=== PATIENT | female | born 1950 | race Caucasian/White ===

== ENCOUNTER → 2017-10-10 | Outpatient (CLI) | payer OTHER ==
[2017-10-10 17:32] LABS: BASOPHILS # (AUTO) 0.1 (0.0-0.1); BASOPHILS % 0.6 % (0.0-1.0); EOSINOPHILS # (AUTO) 0.5 (0.0-0.4); EOSINOPHILS % 6.1 % (0.0-6.0); HEMATOCRIT 35.2 % (34.2-44.1); HEMOGLOBIN 9.7 g/dL (12.0-16.0); LYMPHOCYTES # (AUTO) 1.1 (1.0-3.2); LYMPHOCYTES % 13.1 % (18.0-39.1); MEAN CORPUSCULAR HEMOGLOBIN 21.1 pg (28-32); MEAN CORPUSCULAR HGB CONC 27.6 g/dL (31-35); MEAN CORPUSCULAR VOLUME 76.7 fL (81-99); MONOCYTES # (AUTO) 0.9 (0.2-0.8); MONOCYTES % 10.8 % (4.4-11.3); NEUTROPHILS # (AUTO) 5.9 (2.1-6.9); NEUTROPHILS % 67.7 % (38.7-80.0); PLATELET COUNT 74 x10e3/uL (140-360); RED BLOOD COUNT 4.59 x10e6/uL (3.6-5.1); RED CELL DISTRIBUTION WIDTH 21.9 % (11.7-14.4)
[2017-10-10 17:33] LABS: ALANINE AMINOTRANSFERASE 35 IU/L (0-55); ALBUMIN 3.1 g/dL (3.5-5.0); ALBUMIN/GLOBULIN RATIO 0.7 (0.8-2.0); ALKALINE PHOSPHATASE 89 IU/L (40-150); BLOOD UREA NITROGEN 20 mg/dL (7-26); BUN/CREATININE RATIO 28 (6-25); CALCIUM 9.9 mg/dL (8.4-10.2); CARBON DIOXIDE 31 mmol/L (22-29); CHLORIDE 98 mmol/L (98-107); CREATININE, SERUM 0.72 mg/dL (0.57-1.11); EST GLOMERULAR FILTRATION RATE > 60 ML/MIN (60-); GLUCOSE 128 mg/dL (74-118); SODIUM 141 mmol/L (136-145)
[2017-10-10 17:45] LABS: HYPOCHROMASIA SLIGHT; PLATELET ESTIMATE SLIGHTLY DECREASED; RBC MORPHOLOGY COMMENT NORMAL
[2017-10-10 17:46] LABS: PLATELET MORPHOLOGY COMMENT FEW LARGE
== END ==
LOC: NPA 11:00
PROVIDERS: ATTEND Internal Medicine
DX: Z02.89 Encounter for other administrative examinations (principal)
CPT/HCPCS: 36415; 80053; 85025

== ENCOUNTER → 2017-10-25 | Outpatient (CLI) | payer OTHER ==
[2017-10-25 16:59] LABS: ANION GAP 17.3 mmol/L (8-16); CALCIUM 10.8 mg/dL (8.4-10.2); CREATININE, SERUM 1.67 mg/dL (0.57-1.11); POTASSIUM 4.3 mmol/L (3.5-5.1)
[2017-10-25 17:02] LABS: BASOPHILS # (AUTO) 0.1 (0.0-0.1); BASOPHILS % 0.9 % (0.0-1.0); EOSINOPHILS # (AUTO) 0.5 (0.0-0.4); EOSINOPHILS % 6.7 % (0.0-6.0); HEMATOCRIT 34.3 % (34.2-44.1); HEMOGLOBIN 10.1 g/dL (12.0-16.0); LYMPHOCYTES # (AUTO) 1.5 (1.0-3.2); LYMPHOCYTES % 19.1 % (18.0-39.1); MEAN CORPUSCULAR HGB CONC 29.4 g/dL (31-35); MEAN CORPUSCULAR VOLUME 78.1 fL (81-99); MONOCYTES % 12.7 % (4.4-11.3); NEUTROPHILS # (AUTO) 4.7 (2.1-6.9); NEUTROPHILS % 60.1 % (38.7-80.0); PLATELET COUNT 134 x10e3/uL (140-360); RED BLOOD COUNT 4.39 x10e6/uL (3.6-5.1); RED CELL DISTRIBUTION WIDTH 24.9 % (11.7-14.4)
== END ==
LOC: NPA 14:56
PROVIDERS: ATTEND Internal Medicine
DX: Z02.89 Encounter for other administrative examinations (principal)
CPT/HCPCS: 36415; 80048; 85025

== ENCOUNTER 2018-01-06 17:05 | Inpatient (IN) | payer MEDICARE, OTHER ==
[~2018-01-06] VITALS: Ht 167.6 cm; Wt 122.9 kg
[2018-01-06 17:44] LABS: BASOPHILS # (AUTO) 0.1 (0.0-0.1); BASOPHILS % 0.3 % (0.0-1.0); EOSINOPHILS # (AUTO) 0.2 (0.0-0.4); EOSINOPHILS % 0.8 % (0.0-6.0); HEMATOCRIT 35.5 % (34.2-44.1); HEMOGLOBIN 11.2 g/dL (12.0-16.0); LYMPHOCYTES # (AUTO) 1.3 (1.0-3.2); LYMPHOCYTES % 5.4 % (18.0-39.1); MEAN CORPUSCULAR HEMOGLOBIN 27.5 pg (28-32); MEAN CORPUSCULAR HGB CONC 31.5 g/dL (31-35); MONOCYTES # (AUTO) 1.1 (0.2-0.8); MONOCYTES % 4.5 % (4.4-11.3); NEUTROPHILS % 88.5 % (38.7-80.0); RED BLOOD COUNT 4.08 x10e6/uL (3.6-5.1)
[2018-01-06 17:48] LABS: PLATELET COUNT 97 x10e3/uL (140-360)
[2018-01-06 17:52] LABS: INR 1.22; PROTHROMBIN TIME 14.5 seconds (11.9-14.5)
[2018-01-06 17:53] LABS: PARTIAL THROMBOPLASTIN TIME 31.4 seconds (23.8-35.5)
[2018-01-06 17:56] LABS: BILIRUBIN,URINE NEGATIVE (NEGATIVE); CLARITY,URINE SL CLOUDY (CLEAR); COLOR,URINE YELLOW (YELLOW); KETONES,URINE NEGATIVE (NEGATIVE); LEUKOCYTE ESTERASE ,URINE 1+ (NEGATIVE); NITRITE,URINE POSITIVE (NEGATIVE); PROTEIN,URINE DIPSTICK NEGATIVE (NEGATIVE); URINE UROBILINOGEN 0.2 mg/dL (0.2 - 1)
[2018-01-06 18:00] LABS: ALANINE AMINOTRANSFERASE 12 IU/L (0-55); ALBUMIN 2.6 g/dL (3.5-5.0); ALBUMIN/GLOBULIN RATIO 0.8 (0.8-2.0); ALKALINE PHOSPHATASE 103 IU/L (40-150); ANION GAP 15.5 mmol/L (8-16); BLOOD UREA NITROGEN 16 mg/dL (7-26); BUN/CREATININE RATIO 18 (6-25); CALCIUM 8.4 mg/dL (8.4-10.2); CARBON DIOXIDE 26 mmol/L (22-29); CHLORIDE 100 mmol/L (98-107); CREATINE KINASE 17 IU/L (29-168); CREATININE, SERUM 0.88 mg/dL (0.57-1.11); EST GLOMERULAR FILTRATION RATE > 60 ML/MIN (60-); GLUCOSE 135 mg/dL (74-118); POTASSIUM 3.5 mmol/L (3.5-5.1); SODIUM 138 mmol/L (136-145)
[2018-01-06 18:09] LABS: AMORPHOUS SEDIMENT,URINE MANY (FEW); BACTERIA,URINE MANY /HPF; EPITHELIAL CELLS,URINE MODERATE /LPF; WBC,URINE (MAN) 0-5 /HPF (0-5)
[2018-01-06] MEDS ORDERED: PIPER-TAZ 3.375 GM 50 ML IV STA (18:33)
[2018-01-06] MEDS ORDERED: VANCOMYCIN 1GM/NS 250 ML 250 ML IV STA (18:33)
--- NOTE | 2018-01-06 18:40 | Diagnostic Imaging Report ---
PROCEDURE: A single AP view of the chest. COMPARISON: None. INDICATIONS: SOB FINDINGS: Lines/tubes: None. Lungs: The lungs are well inflated and grossly clear. There is no evidence of pneumonia or pulmonary edema. Pleura: There is no pleural effusion or pneumothorax. Heart and mediastinum: Mild prominence of the cardiac silhouette, which may be partly due to AP projection. Pulmonary vasculature is normal. Bones: No acute bony abnormality. Degenerative changes in the left glenohumeral joint. IMPRESSION: 1. No acute cardiopulmonary abnormalities. Og Arrington M.D. Dictated by: Og Arrington M.D. on 01/06/2018 at 18:41 Electronically approved by: Og Arrington M.D. on 01/06/2018 at 18:41
[2018-01-06] MEDS ORDERED: ACETAMINOPHEN 1000 MG/100 ML IV ONE (18:57)
[2018-01-06] MEDS ORDERED: ACETAMINOPHEN 1000 MG/100 ML IV STA (18:57)
[2018-01-06] MEDS ORDERED: SODIUM CHLORIDE 0.9% 500ML 500 ML IV ONE (19:00)
[2018-01-06 19:19] LABS: BAND NEUTROPHILS % (MANUAL) 1 %; HYPOCHROMASIA MODERATE; LYMPHOCYTES % (MANUAL) 1 % (19-48); MONOCYTES % (MANUAL) 2 % (3.4-9.0); NEUTROPHILS % (MANUAL) 96 % (40-74); NUCLEATED RED BLOOD CELLS 4
[2018-01-06 19:20] LABS: PLATELET ESTIMATE MODERATELY DECREASED; PLATELET MORPHOLOGY COMMENT FEW GIANT; RBC MORPHOLOGY COMMENT NORMAL; TARGET CELLS FEW
[2018-01-06] MEDS ORDERED: METFORMIN HCL500 MG PO (19:20)
[2018-01-06] MEDS ORDERED: AMITRIPTYLINE H25 MG PO (19:21)
[2018-01-06] MEDS ORDERED: POTASSIUM CHLO10 ME1 PO (19:21)
[2018-01-06] MEDS ORDERED: JANUVIA100 MG PO (19:22)
[2018-01-06] MEDS ORDERED: DICYCLOMINE HCL20 MG PO (19:22)
[2018-01-06] MEDS ORDERED: ALLOPURINOL100 MG PO (19:22)
--- OUTSIDE RECORDS SUMMARY | 2018-01-06 19:22 | XMS REPORT ---
Author Author [facility] Address Unknown Phone Unavailable Care Team Providers Care Rpg Programmer Analyst Name Role Phone JENN MILLER Unavailable Unavailable Problems This patient has no known problems. Allergies, Adverse Reactions, Alerts This patient has no known allergies or adverse reactions. Medications This patient has no known medications. Results Test Description Test Time Test Comments Text Results Atomic Results Result Comments CHEST SINGLE (PORTABLE) [place] [address] Patient Name: MOJGAN CUMMINGS MR #: [id number] : 1950 Age/Sex: 67/F Req #: [id number] Adm Physician: Ordered by: JNEN MILLER MD Report #: [id number] Location: ER Room/Bed: Procedure: [id number] DX/CHEST SINGLE (PORTABLE) Exam Date: 01/06/18 Exam Time: 1740 REPORT STATUS: Signed PROCEDURE: A single AP view of the chest. COMPARISON: None. INDICATIONS: SOB FINDINGS: Lines/tubes: None. Lungs: The lungs are well inflated and grossly clear. There is no evidence of pneumonia or pulmonary edema. Pleura: There is no pleural effusion or pneumothorax. Heart and mediastinum: Mild prominence of the cardiac silhouette, which may be partly due to AP projection. Pulmonary vasculature is normal. Bones: No acute bony abnormality. Degenerative changes in the left glenohumeral joint. IMPRESSION: 1. No acute cardiopulmonary abnormalities. Arslan Turner M.D. Dictated by: Arslan Turner M.D. on 01/06/2018 at 18: 41 Electronically approved by: Arslan Turner M.D. on 01/06/2018 at 18:41 Dictated By: ARSLAN TURNER MD 40 Transcribed By: DEN on 01/06/181840 COPY TO: JENN MILLER MD
[2018-01-06] MEDS ORDERED: LASIX40 MG PO (19:23)
[2018-01-06] MEDS ORDERED: PREDNISONE20 MG PO (19:23)
[2018-01-06] MEDS ORDERED: LEVOTHYROXINE50 MCG PO (19:23)
[2018-01-06] MEDS ORDERED: BUDESONIDE EC3 MG INH (19:24)
[2018-01-06] MEDS ORDERED: COMBIVENT RESPIM4 GM IH (19:25)
[2018-01-06] MEDS ORDERED: VANCOMYCIN 1GM/NS 250 ML 250 ML IV SCH (19:30)
[2018-01-06] MEDS ORDERED: DEXTROSE 50% SYRINGE 50 ML IV PRN (19:30)
[2018-01-06] MEDS: ALBUTEROL SULF 0.083% NEB SOLN 3 ML NEB NEB SCH ×2 (20:00→23:50)
[2018-01-06] MEDS: SODIUM CHLORIDE 0.9% 1000ML 1,000 ML IV SCH (20:14)
[2018-01-06] MEDS: IPRATROPIUM BROMIDE 0.02% 2.5 ML NEB NEB SCH (20:15)
--- NOTE | 2018-01-06 20:19 | Diagnostic Imaging Report ---
CT CHEST WITH CONTRAST HISTORY: Shortness of breath, rule out PE COMPARISON: None TECHNIQUE: CT scan of the chest WITH intravenous contrast, using PE protocol. The chest was scanned utilizing a multidetector helical scanner from the lung apex through the level of the adrenal glands. Thin section reconstructions were obtained with special concentration on the pulmonary arteries. IV CONTRAST: 100 cc of Isovue-370. PROTOCOL: PE RADIATION DOSE: Total DLP: 589.77 mGy*cm COMPLICATIONS: None DISCUSSION: Reportedly, the patient was unable to elevate their arms for the exam, which creates beam hardening artifacts which limits the evaluation. Soft tissue attenuation further limits sensitivity of the exam. Lungs: Bilateral dependent atelectasis, right greater than left. More confluent opacity at the posterior aspect of the right upper lobe. Vessels: No filling defects are identified within the pulmonary arteries to the segmental levels, within the stated limitations. Airways: The major airways are clear. Pleura: There is no evidence of pleural effusion or pneumothorax. Heart and mediastinum: The heart appears normal. Mediastinal lipomatosis. Fluid-filled and distended esophagus measuring up to 3.6 x 2.8 cm. Abdomen: The visualized parts of the upper abdomen are unremarkable. Diffuse atrophy of the pancreatic parenchyma. Lymph nodes: No pathologically enlarged lymph node identified. Bones: No acute osseous lesion. Severe degenerative changes of the glenohumeral joints. Soft tissues: Unremarkable IMPRESSION: 1. No specific evidence of a pulmonary embolus to the segmental level. 2. Bilateral dependent atelectasis with more confluent opacity at the posterior aspect of the right upper lobe, aspiration or pneumonia may be considerations in the appropriate setting. 3. Distended and fluid-filled esophagus. Signed by: Dr. Eric Matta D.O., M.M.M. on 01/06/2018 8:15 PM
[2018-01-06] MEDS: CEFEPIME HCL 1 GM VIAL IV SCH (20:36)
[2018-01-06] MEDS: INSULIN REGULAR, HUMAN 100 UNIT/1 ML 3ML VIAL SQ SCH (21:13)
[2018-01-06 23:50] VITALS: BP 102/50
[2018-01-07] VITALS (9 sets, daily range): BP systolic 94–110; BP diastolic 38–83
[2018-01-07] MEDS: ACETAMINOPHEN 325 MG TAB PO PRN ×3 (00:55→15:16)
[2018-01-07] MEDS ORDERED: PIPER-TAZ 3.375 GM 50 ML IV SCH (03:00)
[2018-01-07] MEDS: ALBUTEROL SULF 0.083% NEB SOLN 3 ML NEB NEB SCH ×3 (03:30→11:15)
[2018-01-07] MEDS ORDERED: SODIUM CHLORIDE 0.9% 50ML 50 ML ONE (03:56)
[2018-01-07] MEDS ORDERED: IOPAMIDOL 370 MG/ML 200 ML INFUS..BTL INJ ONE (03:58)
[2018-01-07 06:29] LABS: BASOPHILS # (AUTO) 0.1 (0.0-0.1); BASOPHILS % 0.5 % (0.0-1.0); EOSINOPHILS # (AUTO) 0.2 (0.0-0.4); EOSINOPHILS % 0.5 % (0.0-6.0); HEMATOCRIT 37.6 % (34.2-44.1); HEMOGLOBIN 11.4 g/dL (12.0-16.0); LYMPHOCYTES # (AUTO) 1.5 (1.0-3.2); MEAN CORPUSCULAR HEMOGLOBIN 27.7 pg (28-32); MEAN CORPUSCULAR HGB CONC 30.3 g/dL (31-35); MEAN CORPUSCULAR VOLUME 91.5 fL (81-99); MONOCYTES # (AUTO) 1.4 (0.2-0.8); MONOCYTES % 4.8 % (4.4-11.3); NEUTROPHILS # (AUTO) 26.1 (2.1-6.9); NEUTROPHILS % 88.5 % (38.7-80.0); PLATELET COUNT 74 x10e3/uL (140-360); RED BLOOD COUNT 4.11 x10e6/uL (3.6-5.1)
[2018-01-07 06:58] LABS: ALBUMIN 2.3 g/dL (3.5-5.0); ALBUMIN/GLOBULIN RATIO 0.7 (0.8-2.0); ANION GAP 16.9 mmol/L (8-16); CREATININE, SERUM 1.06 mg/dL (0.57-1.11); POTASSIUM 3.9 mmol/L (3.5-5.1)
[2018-01-07] MEDS ORDERED: VANCOMYCIN 1GM/NS 250 ML 250 ML IV SCH (07:00)
[2018-01-07] MEDS: IPRATROPIUM BROMIDE 0.02% 2.5 ML NEB NEB SCH ×3 (07:34→19:55)
[2018-01-07] MEDS: CEFEPIME HCL 1 GM VIAL IV SCH ×2 (08:20→20:15)
[2018-01-07] MEDS: INSULIN REGULAR, HUMAN 100 UNIT/1 ML 3ML VIAL SQ SCH ×4 (08:27→21:00)
[2018-01-07] MEDS: SODIUM CHLORIDE 0.9% 1000ML 1,000 ML IV SCH ×2 (09:23→12:21)
[2018-01-07 10:47] LABS: EOSINOPHILS % (MANUAL) 2 % (0-7); LYMPHOCYTES % (MANUAL) 6 % (19-48); NEUTROPHILS % (MANUAL) 92 % (40-74)
[2018-01-07 10:48] LABS: HYPOCHROMASIA SLIGHT; PLATELET ESTIMATE MODERATELY DECREASED; PLATELET MORPHOLOGY COMMENT NORMAL; RBC MORPHOLOGY COMMENT NORMAL
[2018-01-07] MEDS ORDERED: AZITHROMYCIN 500MG/NS 250 ML 250 ML IV SCH (13:00)
[2018-01-07] MEDS: LEVALBUTEROL HCL SOLN NEBU 0.63 MG/3 ML NEB INH SCH ×3 (15:19→23:05)
--- NOTE | 2018-01-07 15:35 | Consultation ---
DATE OF CONSULTATION: January 07, 2018 Ms. Lopez is well known to me from outpatient. She is a very pleasant 67-year-old female with a history of obesity. She was in the hospital for a prolonged time. Apparently, she had pneumonia. She had a trach. The patient then was transferred to a skilled care facility. She is well known to me with multidrug resistance. Patient was on long-term antibiotics. She was complicated with C. diff colitis. I saw her the office and we took off all the antibiotics, which was for her C. diff and she was doing well. Apparently, she has no complaints until recently when she started having lethargy and sleepy. Patient was sent to the emergency room where she was evaluated. In the emergency room, she had a white count of 24.8, hemoglobin 11.2. The patient was admitted because. Infectious disease was consulted. She is feeling better today. She is currently laying in bed comfortably. She has some urgency and frequency she said. PAST MEDICAL HISTORY: Sepsis, pneumonia, C. diff, status post tracheostomy, which is resolved, prolonged hospitalization, which is better, debility. She was at skilled care. PAST SURGICAL HISTORY: Trach. ALLERGIES: NKA. SOCIAL HISTORY: There is no smoking, drug abuse or alcohol use. FAMILY HISTORY: Hypertension. REVIEW OF SYSTEMS HEENT: Negative. PULMONARY: Negative. CARDIAC: Negative. : Negative. All other systems are within normal limits. LABORATORY DATA: Sodium 139, potassium 3.9, creatinine 1.06. Her white count is 29.49, hemoglobin 11.4 and platelets of 74,000. Her cultures of urine showed gram-negative rods. Sensitivity and identification are still pending. Her creatinine is 1.06. She had a chest CT, which showed no evidence of pulmonary embolism. She had distended fluid-filled esophagus. PHYSICAL EXAMINATION GENERAL: She is alert, oriented and obese. VITALS: Stable. Currently afebrile. HEENT: She is not icteric. NECK: Supple. CHEST: Clear. CORE: No murmur. ABDOMEN: Soft. IMPRESSION 1. Sepsis. 2. Urinary tract infection: I would suggest to discontinue azithromycin. Discontinue vancomycin. Continue with cefepime 2 g q.12 h. Await culture and sensitivity. She probably will need GI evaluation for the distended esophagus. 3. Morbidly obese patient. 4. Stage 2 wound of the thigh: Continue local care. 5. Will follow with you. Job#: [id number] RI
[2018-01-07] MEDS: POTASSIUM CHLORIDE 10 MEQ TABCR PO SCH (16:54)
[2018-01-07] MEDS: GUAIFENESIN 600 MG TAB PO SCH ×2 (16:56→23:33)
[2018-01-07] MEDS ORDERED: ENOXAPARIN SOD INJ 40 MG/0.4 ML SYR SC SCH (17:00)
[2018-01-07] MEDS: AMITRIPTYLINE HCL 25 MG TAB PO SCH (21:31)
[2018-01-08] VITALS (9 sets, daily range): BP systolic 96–124; BP diastolic 47–73
[2018-01-08] MEDS: LEVALBUTEROL HCL SOLN NEBU 0.63 MG/3 ML NEB INH SCH ×6 (02:35→23:40)
[2018-01-08] MEDS: IPRATROPIUM BROMIDE 0.02% 2.5 ML NEB NEB SCH ×4 (02:35→19:30)
[2018-01-08] MEDS: LEVOTHYROXINE SODIUM 50 MCG TAB PO SCH (05:44)
[2018-01-08] MEDS: GUAIFENESIN 600 MG TAB PO SCH ×4 (05:44→23:28)
[2018-01-08] MEDS: SODIUM CHLORIDE 0.9% 1000ML 1,000 ML IV SCH (06:24)
[2018-01-08 07:05] LABS: BASOPHILS % 0.2 % (0.0-1.0); EOSINOPHILS # (AUTO) 0.3 (0.0-0.4); HEMATOCRIT 33.6 % (34.2-44.1); HEMOGLOBIN 10.4 g/dL (12.0-16.0); LYMPHOCYTES # (AUTO) 0.9 (1.0-3.2); LYMPHOCYTES % 5.3 % (18.0-39.1); MEAN CORPUSCULAR HEMOGLOBIN 27.5 pg (28-32); MEAN CORPUSCULAR VOLUME 88.9 fL (81-99); MONOCYTES # (AUTO) 0.8 (0.2-0.8); MONOCYTES % 4.6 % (4.4-11.3); NEUTROPHILS % 87.4 % (38.7-80.0); PLATELET COUNT 89 x10e3/uL (140-360); RED BLOOD COUNT 3.78 x10e6/uL (3.6-5.1); RED CELL DISTRIBUTION WIDTH 16.5 % (11.7-14.4)
[2018-01-08] MEDS: INSULIN REGULAR, HUMAN 100 UNIT/1 ML 3ML VIAL SQ SCH ×4 (07:30→21:12)
[2018-01-08 07:44] LABS: ANION GAP 11.1 mmol/L (8-16); BLOOD UREA NITROGEN 21 mg/dL (7-26); BUN/CREATININE RATIO 26 (6-25); CALCIUM 8.1 mg/dL (8.4-10.2); CARBON DIOXIDE 27 mmol/L (22-29); CHLORIDE 104 mmol/L (98-107); EST GLOMERULAR FILTRATION RATE > 60 ML/MIN (60-); GLUCOSE 112 mg/dL (74-118); POTASSIUM 4.1 mmol/L (3.5-5.1); SODIUM 138 mmol/L (136-145)
[2018-01-08 07:51] LABS: MAGNESIUM 0.8 MG/DL (1.3-2.1)
[2018-01-08 08:03] LABS: FREE T4 (FREE THYROXINE) 0.94 ng/dL (0.9-1.8); THYROID STIMULATING HORMONE 1.447 uIU/mL (0.350-4.940)
[2018-01-08] MEDS: POTASSIUM CHLORIDE 10 MEQ TABCR PO SCH ×2 (08:47→17:01)
[2018-01-08] MEDS: PANTOPRAZOLE SOD 40 MG TABEC PO SCH (08:47)
[2018-01-08] MEDS: ALLOPURINOL 100 MG TAB PO SCH (08:47)
[2018-01-08] MEDS: SITAGLIPTIN 100 MG TAB PO SCH (08:47)
[2018-01-08] MEDS: CEFEPIME HCL 1 GM VIAL IV SCH (08:47)
[2018-01-08] MEDS: PREDNISONE 20 MG TAB PO SCH (08:47)
[2018-01-08] MEDS: FUROSEMIDE 40 MG TAB PO SCH (08:47)
[2018-01-08] MEDS ORDERED: MAGNESIUM SULFATE 2GM/50ML 50 ML IV ONE (10:00)
[2018-01-08] MEDS ORDERED: MAGNESIUM SULFATE 2GM/50ML 100 ML IV ONE (10:15)
[2018-01-08] MEDS: METOPROLOL SUCCINATE 25 MG TAB XL PO SCH (10:27)
[2018-01-08 10:45] LABS: BAND NEUTROPHILS % (MANUAL) 26 %; EOSINOPHILS % (MANUAL) 5 % (0-7); LYMPHOCYTES % (MANUAL) 3 % (19-48); MONOCYTES % (MANUAL) 1 % (3.4-9.0); NEUTROPHILS % (MANUAL) 65 % (40-74)
[2018-01-08 10:46] LABS: PLATELET ESTIMATE SLIGHTLY DECREASED; PLATELET MORPHOLOGY COMMENT FEW LARGE; RBC MORPHOLOGY COMMENT NORMAL
[2018-01-08] MEDS ORDERED: MAGNESIUM SULF 1GRAM/DEXTROSE 100 ML IV ONE (13:00)
[2018-01-08] MEDS: ACETAMINOPHEN 325 MG TAB PO PRN (13:26)
[2018-01-08] MEDS: MEROPENEM 500 MG VIAL IV SCH ×2 (13:59→21:10)
[2018-01-08] MEDS ORDERED: MEROPENEM 500MG 500 MG in SODIUM CHLORIDE 0.9% 50ML 50 ML IV SCH (14:00)
[2018-01-08] MEDS: MAGNESIUM OXIDE 400 MG TAB PO SCH (17:01)
[2018-01-08] MEDS: AMITRIPTYLINE HCL 25 MG TAB PO SCH (21:10)
[2018-01-09] VITALS (7 sets, daily range): BP systolic 111–127; BP diastolic 58–70
[2018-01-09] MEDS: IPRATROPIUM BROMIDE 0.02% 2.5 ML NEB NEB SCH ×5 (02:55→23:45)
[2018-01-09] MEDS: LEVALBUTEROL HCL SOLN NEBU 0.63 MG/3 ML NEB INH SCH ×5 (02:55→23:45)
[2018-01-09] MEDS: SODIUM CHLORIDE 0.9% 1000ML 1,000 ML IV SCH (05:53)
[2018-01-09] MEDS: MEROPENEM 500 MG VIAL IV SCH ×3 (05:53→21:58)
[2018-01-09] MEDS: GUAIFENESIN 600 MG TAB PO SCH ×3 (05:53→21:57)
[2018-01-09] MEDS: LEVOTHYROXINE SODIUM 50 MCG TAB PO SCH (05:53)
[2018-01-09 06:45] LABS: BASOPHILS % 0.2 % (0.0-1.0); EOSINOPHILS # (AUTO) 0.2 (0.0-0.4); EOSINOPHILS % 1.7 % (0.0-6.0); HEMATOCRIT 32.6 % (34.2-44.1); HEMOGLOBIN 10.3 g/dL (12.0-16.0); LYMPHOCYTES % 7.2 % (18.0-39.1); MEAN CORPUSCULAR HEMOGLOBIN 27.8 pg (28-32); MEAN CORPUSCULAR HGB CONC 31.6 g/dL (31-35); MEAN CORPUSCULAR VOLUME 88.1 fL (81-99); MONOCYTES # (AUTO) 0.8 (0.2-0.8); MONOCYTES % 5.7 % (4.4-11.3); NEUTROPHILS # (AUTO) 11.6 (2.1-6.9); NEUTROPHILS % 84.5 % (38.7-80.0); PLATELET COUNT 108 x10e3/uL (140-360); RED CELL DISTRIBUTION WIDTH 16.1 % (11.7-14.4)
[2018-01-09 07:03] LABS: ANION GAP 10.6 mmol/L (8-16); BLOOD UREA NITROGEN 16 mg/dL (7-26); BUN/CREATININE RATIO 21 (6-25); CALCIUM 8.3 mg/dL (8.4-10.2); CARBON DIOXIDE 30 mmol/L (22-29); CHLORIDE 103 mmol/L (98-107); CREATININE, SERUM 0.76 mg/dL (0.57-1.11); EST GLOMERULAR FILTRATION RATE > 60 ML/MIN (60-); GLUCOSE 98 mg/dL (74-118); MAGNESIUM 1.4 MG/DL (1.3-2.1); POTASSIUM 3.6 mmol/L (3.5-5.1); SODIUM 140 mmol/L (136-145)
[2018-01-09] MEDS: INSULIN REGULAR, HUMAN 100 UNIT/1 ML 3ML VIAL SQ SCH ×4 (07:30→22:49)
[2018-01-09 07:47] LABS: ANISOCYTOSIS SLIGHT; HOWELL-JOLLY BODIES FEW; LYMPHOCYTES % (MANUAL) 4 % (19-48); MONOCYTES % (MANUAL) 4 % (3.4-9.0); NEUTROPHILS % (MANUAL) 91 % (40-74)
[2018-01-09 07:48] LABS: ELLIPTOCYTE, RBC SLIGHT; HYPOCHROMASIA SLIGHT; PLATELET ESTIMATE SLIGHTLY DECREASED; PLATELET MORPHOLOGY COMMENT FEW LARGE; POIKILOCYTOSIS SLIGHT; RBC MORPHOLOGY COMMENT ABNORMAL; STOMATOCYTES SLIGHT
[2018-01-09] MEDS: PANTOPRAZOLE SOD 40 MG TABEC PO SCH (08:33)
[2018-01-09] MEDS: METOPROLOL SUCCINATE 25 MG TAB XL PO SCH (09:01)
[2018-01-09] MEDS: PREDNISONE 20 MG TAB PO SCH (09:02)
[2018-01-09] MEDS: SITAGLIPTIN 100 MG TAB PO SCH (09:02)
[2018-01-09] MEDS: OYST-CAL-D 500MG TABLET PO SCH (09:03)
[2018-01-09] MEDS: FUROSEMIDE 40 MG TAB PO SCH (09:05)
[2018-01-09] MEDS: ALLOPURINOL 100 MG TAB PO SCH (09:05)
[2018-01-09] MEDS: POTASSIUM CHLORIDE 10 MEQ TABCR PO SCH ×2 (09:05→17:00)
[2018-01-09] MEDS: MAGNESIUM OXIDE 400 MG TAB PO SCH ×2 (09:06→17:00)
[2018-01-09] MEDS: LEVALBUTEROL HCL SOLN NEBU 0.63 MG/3 ML NEB INH PRN (11:32)
[2018-01-09] MEDS: METHYLPREDNISOLONE SOD SUCC 40 MG/ML VIAL IV SCH ×2 (11:33→21:57)
[2018-01-09] MEDS ORDERED: LEVALBUTEROL HCL SOLN NEBU 0.63 MG/3 ML NEB INH SCH (13:00)
[2018-01-09] MEDS: AMITRIPTYLINE HCL 25 MG TAB PO SCH (21:58)
[2018-01-10] VITALS (8 sets, daily range): BP systolic 121–149; BP diastolic 60–83
[2018-01-10] MEDS: GUAIFENESIN 600 MG TAB PO SCH ×4 (00:10→17:56)
[2018-01-10] MEDS: SODIUM CHLORIDE 0.9% 1000ML 1,000 ML IV SCH ×2 (00:15→20:15)
[2018-01-10] MEDS: MEROPENEM 500 MG VIAL IV SCH ×3 (06:08→21:22)
[2018-01-10] MEDS: LEVOTHYROXINE SODIUM 50 MCG TAB PO SCH (06:08)
[2018-01-10 06:51] LABS: BASOPHILS % 0.1 % (0.0-1.0); HEMATOCRIT 33.7 % (34.2-44.1); HEMOGLOBIN 10.4 g/dL (12.0-16.0); LYMPHOCYTES # (AUTO) 0.4 (1.0-3.2); LYMPHOCYTES % 6.1 % (18.0-39.1); MEAN CORPUSCULAR HEMOGLOBIN 27.3 pg (28-32); MEAN CORPUSCULAR HGB CONC 30.9 g/dL (31-35); MEAN CORPUSCULAR VOLUME 88.5 fL (81-99); MONOCYTES # (AUTO) 0.3 (0.2-0.8); MONOCYTES % 4.2 % (4.4-11.3); NEUTROPHILS # (AUTO) 6.1 (2.1-6.9); NEUTROPHILS % 88.4 % (38.7-80.0); PLATELET COUNT 118 x10e3/uL (140-360); RED BLOOD COUNT 3.81 x10e6/uL (3.6-5.1); RED CELL DISTRIBUTION WIDTH 15.9 % (11.7-14.4)
[2018-01-10] MEDS: LEVALBUTEROL HCL SOLN NEBU 0.63 MG/3 ML NEB INH SCH ×5 (07:00→23:15)
[2018-01-10] MEDS: IPRATROPIUM BROMIDE 0.02% 2.5 ML NEB NEB SCH ×3 (07:00→18:20)
[2018-01-10 07:11] LABS: ANION GAP 11.4 mmol/L (8-16); BLOOD UREA NITROGEN 11 mg/dL (7-26); BUN/CREATININE RATIO 17 (6-25); CALCIUM 8.3 mg/dL (8.4-10.2); CARBON DIOXIDE 32 mmol/L (22-29); CHLORIDE 101 mmol/L (98-107); CREATININE, SERUM 0.63 mg/dL (0.57-1.11); EST GLOMERULAR FILTRATION RATE > 60 ML/MIN (60-); GLUCOSE 162 mg/dL (74-118); MAGNESIUM 1.3 MG/DL (1.3-2.1); POTASSIUM 4.4 mmol/L (3.5-5.1); SODIUM 140 mmol/L (136-145)
[2018-01-10] MEDS: INSULIN REGULAR, HUMAN 100 UNIT/1 ML 3ML VIAL SQ SCH ×4 (08:30→21:15)
[2018-01-10] MEDS: MAGNESIUM OXIDE 400 MG TAB PO SCH ×2 (08:45→16:30)
[2018-01-10] MEDS: OYST-CAL-D 500MG TABLET PO SCH (08:45)
[2018-01-10] MEDS: PANTOPRAZOLE SOD 40 MG TABEC PO SCH ×2 (08:45→16:30)
[2018-01-10] MEDS: ALLOPURINOL 100 MG TAB PO SCH (08:45)
[2018-01-10] MEDS: METHYLPREDNISOLONE SOD SUCC 40 MG/ML VIAL IV SCH ×2 (08:45→21:22)
[2018-01-10] MEDS: FUROSEMIDE 40 MG TAB PO SCH (08:45)
[2018-01-10] MEDS: SITAGLIPTIN 100 MG TAB PO SCH (08:45)
[2018-01-10] MEDS: METOPROLOL SUCCINATE 25 MG TAB XL PO SCH (08:45)
[2018-01-10] MEDS: POTASSIUM CHLORIDE 10 MEQ TABCR PO SCH ×2 (08:45→16:30)
[2018-01-10] MEDS: BALSAM PERU/CASTOR OIL 60 GM OINT...G. TP SCH (09:30)
[2018-01-10] MEDS: NYSTATIN 15 GM POWDER UD BTL TOP SCH (09:30)
[2018-01-10] MEDS ORDERED: CALCIUM GLUCONATE 10% INJ 4.65 MEQ in SODIUM CHLORIDE 0.9% 50ML 50 ML IV ONE (14:00)
[2018-01-10] MEDS: AMITRIPTYLINE HCL 25 MG TAB PO SCH (21:22)
[2018-01-10] MEDS: LORAZEPAM INJ 2 MG/ML VIAL IV PRN (21:56)
[2018-01-11] VITALS (84 sets, daily range): BP systolic 75–185; BP diastolic 36–106
[2018-01-11] MEDS: MEROPENEM 500 MG VIAL IV SCH ×3 (05:56→21:51)
[2018-01-11] MEDS: GUAIFENESIN 600 MG TAB PO SCH ×4 (05:56→18:00)
[2018-01-11] MEDS: LEVOTHYROXINE SODIUM 50 MCG TAB PO SCH (05:56)
[2018-01-11 06:58] LABS: BASOPHILS % 0.4 % (0.0-1.0); HEMATOCRIT 36.5 % (34.2-44.1); HEMOGLOBIN 11.3 g/dL (12.0-16.0); LYMPHOCYTES # (AUTO) 0.6 (1.0-3.2); LYMPHOCYTES % 4.9 % (18.0-39.1); MEAN CORPUSCULAR HEMOGLOBIN 27.4 pg (28-32); MEAN CORPUSCULAR VOLUME 88.4 fL (81-99); MONOCYTES # (AUTO) 0.5 (0.2-0.8); MONOCYTES % 4.4 % (4.4-11.3); NEUTROPHILS % 87.8 % (38.7-80.0); PLATELET COUNT 158 x10e3/uL (140-360); RED BLOOD COUNT 4.13 x10e6/uL (3.6-5.1)
--- NOTE | 2018-01-11 07:05 | Diagnostic Imaging Report ---
EXAMINATION: CHEST SINGLE (PORTABLE) INDICATION: Follow-up pneumonia. COMPARISON: Chest x-ray on 01/06/2018 FINDINGS: TUBES and LINES: None. LUNGS: Lungs are not well inflated. There are bibasilar atelectasis. There is mild prominence of the central pulmonary vasculature, consistent with pulmonary venous congestion. PLEURA: No pleural effusion or pneumothorax. HEART AND MEDIASTINUM: Cardiac size is moderately enlarged. The aorta is ectatic with atherosclerotic calcifications. BONES AND SOFT TISSUES: No acute osseous lesion. Soft tissues are unremarkable. UPPER ABDOMEN: No free air under the diaphragm. IMPRESSION: 1. Persistent central vascular congestion without evidence of edema. 2. Again, tortuous ectatic and atherosclerotic aorta. 3. No evidence of consolidation/pneumonia. Signed by: Dr. Cristhian Echeverria M.D. on 01/11/2018 7:01 AM
[2018-01-11] MEDS: INSULIN REGULAR, HUMAN 100 UNIT/1 ML 3ML VIAL SQ SCH ×4 (07:30→21:51)
[2018-01-11] MEDS: LEVALBUTEROL HCL SOLN NEBU 0.63 MG/3 ML NEB INH SCH ×5 (07:35→23:05)
[2018-01-11] MEDS: IPRATROPIUM BROMIDE 0.02% 2.5 ML NEB NEB SCH ×3 (07:35→19:00)
[2018-01-11 07:39] LABS: ANION GAP 13.3 mmol/L (8-16); BLOOD UREA NITROGEN 13 mg/dL (7-26); BUN/CREATININE RATIO 18 (6-25); CALCIUM 9.3 mg/dL (8.4-10.2); CARBON DIOXIDE 33 mmol/L (22-29); CHLORIDE 100 mmol/L (98-107); CREATININE, SERUM 0.73 mg/dL (0.57-1.11); EST GLOMERULAR FILTRATION RATE > 60 ML/MIN (60-); GLUCOSE 155 mg/dL (74-118); MAGNESIUM 1.3 MG/DL (1.3-2.1); POTASSIUM 4.3 mmol/L (3.5-5.1); SODIUM 142 mmol/L (136-145)
[2018-01-11] MEDS: OYST-CAL-D 500MG TABLET PO SCH (08:25)
[2018-01-11] MEDS: FUROSEMIDE 40 MG TAB PO SCH (08:25)
[2018-01-11] MEDS: SITAGLIPTIN 100 MG TAB PO SCH (08:25)
[2018-01-11] MEDS: METOPROLOL SUCCINATE 25 MG TAB XL PO SCH (08:25)
[2018-01-11] MEDS: LORAZEPAM INJ 2 MG/ML VIAL IV PRN (08:25)
[2018-01-11] MEDS: BALSAM PERU/CASTOR OIL 60 GM OINT...G. TP SCH (08:25)
[2018-01-11] MEDS: MAGNESIUM OXIDE 400 MG TAB PO SCH ×2 (08:25→17:00)
[2018-01-11] MEDS: NYSTATIN 15 GM POWDER UD BTL TOP SCH (08:25)
[2018-01-11] MEDS: PANTOPRAZOLE SOD 40 MG TABEC PO SCH ×2 (08:25→16:30)
[2018-01-11] MEDS: ALLOPURINOL 100 MG TAB PO SCH (08:25)
[2018-01-11] MEDS: POTASSIUM CHLORIDE 10 MEQ TABCR PO SCH ×2 (08:25→17:00)
[2018-01-11] MEDS: METHYLPREDNISOLONE SOD SUCC 40 MG/ML VIAL IV SCH ×2 (08:25→21:00)
[2018-01-11 08:55] LABS: ANISOCYTOSIS SLIGHT; LYMPHOCYTES % (MANUAL) 3 % (19-48); MONOCYTES % (MANUAL) 4 % (3.4-9.0); NEUTROPHILS % (MANUAL) 93 % (40-74); PLATELET ESTIMATE SLIGHTLY DECREASED; PLATELET MORPHOLOGY COMMENT FEW LARGE; RBC MORPHOLOGY COMMENT NORMAL
[2018-01-11] MEDS: LEVALBUTEROL HCL SOLN NEBU 0.63 MG/3 ML NEB INH PRN (09:01)
[2018-01-11] MEDS ORDERED: DEXMEDETOMIDINE HCL 200 MCG in SODIUM CHLORIDE 0.9% 50ML 48 ML IV PRN (10:15)
[2018-01-11] MEDS ORDERED: PROPOFOL IV EMULSION 10MG/ML 100 ML ONE (10:40)
[2018-01-11] MEDS ORDERED: PROPOFOL IV EMULSION 10 MG/ML 50 ML VIAL IV SCH (11:15)
--- NOTE | 2018-01-11 11:41 | Diagnostic Imaging Report ---
PROCEDURE:CHEST SINGLE (PORTABLE) TECHNIQUE:Portable AP chest INDICATION:Intubation COMPARISON:Patients [facility], DX, CHEST SINGLE (PORTABLE), 01/11/2018, 6:10. Patients [facility], DX, CHEST SINGLE (PORTABLE), 01/06/2018, 17:50. FINDINGS: See conclusion. CONCLUSION: 1. Endotracheal tube tip about 6 cm from the marlyn. 2. Progressive right upper lobe atelectasis and consolidation with accompanying mediastinal shift. 3. Stable bibasilar atelectasis. No pericardial effusion. Mild cardiomegaly for technique. 4. The patient is rotated to the right, slightly limiting evaluation. Dictated by: Wilmer Marte M.D. on 01/11/2018 at 11:42 Electronically approved by: Wilmer Marte M.D. on 01/11/2018 at 11:42
[2018-01-11] MEDS: TOBRAMYCIN 40MG/ML 30ML MDV INH SCH ×2 (12:00→19:30)
[2018-01-11] MEDS: PROPOFOL IV EMULSION 10MG/ML 100 ML IV SCH (12:55)
--- NOTE | 2018-01-11 13:54 | Diagnostic Imaging Report ---
PROCEDURE: A single AP view of the chest. COMPARISON: Chest portable 01/11/2018. CT chest 01/06/2018 INDICATIONS: ETT REPOSITION FINDINGS: Lines/tubes: Endotracheal catheter is present with the tip projecting over the expected region of the trachea, positioned 5 cm from the marlyn. Enteric feeding catheter is present with the tip extending below the inferior margin of the examination, likely within the gastric body. Lungs: Bibasilar atelectasis. No parenchymal mass. Pleura: There is no pleural effusion or pneumothorax. Heart and mediastinum: The heart and the mediastinum are unremarkable. Bones: No acute bony abnormality. Degenerative changes of the thoracic spine. IMPRESSION: No acute radiographic abnormality. Dictated by: Dave Tripp M.D. on 01/11/2018 at 13:55 Electronically approved by: Dave Tripp M.D. on 01/11/2018 at 13:55
--- NOTE | 2018-01-11 13:58 | Diagnostic Imaging Report ---
PROCEDURE:X-RAY ABDOMEN - KUB COMPARISON:None. INDICATIONS:OG TUBE PLACEMENT FINDINGS: Enteric feeding catheter is present with the tip projecting over the expected region of the gastric body. Gastrostomy catheter projects over the expected region of the distal gastric body. There is a non-obstructed bowel-gas pattern. There are no calcifications projected over the renal shadows, expected course of the ureters or bladder. There are no acute osseous abnormalities. The lung bases are clear. CONCLUSION: No acute radiographic abnormality. Dictated by: Dave Tripp M.D. on 01/11/2018 at 13:59 Electronically approved by: Dave Tripp M.D. on 01/11/2018 at 13:59
[2018-01-11] MEDS ORDERED: DEXMEDETOMIDINE HCL IV PRN (16:30)
[2018-01-11] MEDS ORDERED: SODIUM CHLORIDE 0.9% IV PRN (16:30)
--- NOTE | 2018-01-11 17:07 | Diagnostic Imaging Report ---
PROCEDURE: A single AP view of the chest. COMPARISON: Chest portable 01/11/2018 at 1417 hrs.. INDICATIONS: INTUBATION PLACEMENT, REPEAT X RAY FINDINGS: Lines/tubes: Endotracheal catheter is present with the tip projecting over the expected region of the trachea, positioned 5 cm from the marlyn. Enteric feeding catheter is present with the tip extending below the inferior margin of the examination, likely within the gastric body. Lungs: Bibasilar atelectasis. No parenchymal mass. Possible narrowing of the trachea in the region of the thoracic inlet, at the level of the tip of the endotracheal catheter. Pleura: There is no pleural effusion or pneumothorax. Heart and mediastinum: The heart and the mediastinum are unremarkable. Bones: No acute bony abnormality. Degenerative changes of the thoracic spine. IMPRESSION: Narrowing of the trachea may represent stenosis. Otherwise, no acute radiographic abnormality. Dictated by: Dave Tripp M.D. on 01/11/2018 at 17:08 Electronically approved by: Dave Tripp M.D. on 01/11/2018 at 17:08
[2018-01-11] MEDS ORDERED: SUCCINYLCHOLINE CHLORIDE 20 MG/ML 10ML VIAL ONE (17:09)
--- NOTE | 2018-01-11 17:55 | Operative Report ---
DATE OF PROCEDURE: PREPROCEDURE DIAGNOSIS: High peak pressures on the ventilator and unable to pass a suction catheter through the endotracheal tube. POSTPROCEDURE DIAGNOSIS: Likely tracheal stenosis. PROCEDURE PERFORMED: Bronchoscopy. PROCEDURE DETAILS: Bronchoscope with eye piece was advanced through the ET tube. Patient has a 7.0 ET tube, and the scope can only be done with the eye piece scope. Evaluated the trachea and moved the tube up. Patient's ET tube is in the right place in the trachea, and it is above the marlyn. However, around mid trachea it appears that patient has stenosis of the trachea. Confirmatory evaluation needs to be done in the OR with anesthesia as patient has a very difficult airway and is a high risk for losing the airway. COMPLICATIONS: None. Job#: [id number] KODY
--- NOTE | 2018-01-11 18:25 | Consultation ---
DATE OF CONSULTATION: January 11, 2018 PULMONARY CRITICAL CARE CONSULTATION REASON FOR CONSULTATION: ICU management. CHIEF COMPLAINT: Patient is admitted for possible sepsis and pneumonia on the floor. HISTORY OF PRESENT ILLNESS: Ms. Bonner was admitted on January 07 with possible sepsis pneumonia per the chart. She became suddenly unresponsive and was intubated on the floor. She never lost pulse per the report. Currently she is intubated and sedated. Once the sedation was off, she was able to follow a few commands. On admission, she had bilateral lower extremity swelling as well. According to Dr. Batista's note, the patient had a prolonged hospital stay in the past, possibly at [place], as I do not see any admission here. She underwent tracheostomy. She had history of multidrug-resistant pneumonias. Currently, the patient is here. She has been decannulated in the facility where she was living. She will be continued on mechanical ventilator. Her peak pressures have been high. REVIEW OF SYSTEMS: Unable to elicit any as the patient is sedated. PAST MEDICAL HISTORY: Pneumonia, C. diff., history of tracheostomy, decannulated, gout, hypothyroidism and morbid obesity. SURGICAL HISTORY: Tonsillectomy. Hysterectomy. PEG. Left hip replacement. FAMILY HISTORY: Diabetes on father's side. ALLERGIES: PENICILLIN AND HEPARIN. PHYSICAL EXAMINATION: VITALS: Temperature 98.9, pulse of 92, blood pressure 160/98. She is on mechanical ventilator. HEENT: Head atraumatic and normocephalic. Pupils are reactive. NECK: Neck supple. She has a tracheostomy scar. CHEST: Clear to auscultation bilaterally. No wheezing, no crackles. ABDOMEN: Soft, nontender and nondistended. EXTREMITIES: No clubbing, cyanosis or edema. NEUROLOGIC: She is sedated and intubated. LABORATORY DATA: White count of 11,000, hemoglobin 11.3. Platelets 158,000. Chemistry is within normal limits. Chest x-ray: I reviewed the images from 01/06. Patient has tracheal narrowing in the mid trachea. She has history of tracheostomy. CT of the chest was done as well which is showing no evidence of pulmonary embolism but atelectasis. When I reviewed the images myself, it is showing evidence of tracheal stenosis, probably at thoracic inlet and also the CT is showing evidence of right lower lobe pneumonia. ASSESSMENT: Ms. Lopez is a 67-year-old female admitted with sepsis pneumonia, intubated and became unresponsive. High peak pressures on ventilator. I did a bedside bronchoscopy. Patient has 7 tubes, so it was done with IP scope. She has tracheal narrowing. Her tube is in the right place and the reason for high peak pressure are tracheal stenosis, likely the complication of tracheostomy. PLAN: Antibiotics will be continued. Ventilator support will be continued. Settings reviewed. Continue the patient on IV steroids and antibiotics as ordered. Patient will need ENT evaluation for possibility of redoing the tracheostomy as patient has tracheal narrowing, and it will be a difficult area if the patient is extubated. Will consult Dr. Hill for evaluation of tracheal stenosis. Job#: [id number]
[2018-01-11] MEDS: SODIUM CHLORIDE 0.9% 1000ML 1,000 ML IV SCH (18:53)
[2018-01-11 19:19] LABS: ABG HCO3 41 mmol/L (23-28); ABG PCO2 62 mmHg (41-51); ABG PH 7.42 (7.31-7.41); ABG PO2 71 mmHg (80-105)
[2018-01-11 19:26] LABS: ABG HCO3 41 mmol/L (23-28); ABG PCO2 59 mmHg (41-51); ABG PH 7.45 (7.31-7.41); ABG PO2 238 mmHg (80-105)
[2018-01-11] MEDS ORDERED: TOBRAMYCIN 40 MG/ML 2ML VIAL INH SCH (21:00)
[2018-01-11] MEDS: AMITRIPTYLINE HCL 25 MG TAB PO SCH (21:00)
[2018-01-12] VITALS (93 sets, daily range): BP systolic 87–151; BP diastolic 37–100
[2018-01-12] MEDS: IPRATROPIUM BROMIDE 0.02% 2.5 ML NEB NEB SCH ×4 (03:00→18:25)
[2018-01-12] MEDS: LEVALBUTEROL HCL SOLN NEBU 0.63 MG/3 ML NEB INH SCH ×6 (03:00→23:25)
[2018-01-12] MEDS: MEROPENEM 500 MG VIAL IV SCH ×3 (06:00→22:46)
[2018-01-12] MEDS: LEVOTHYROXINE SODIUM 50 MCG TAB PO SCH (06:00)
[2018-01-12] MEDS: GUAIFENESIN 600 MG TAB PO SCH ×5 (06:00→23:59)
[2018-01-12 06:09] LABS: BASOPHILS % 0.2 % (0.0-1.0); HEMATOCRIT 34.8 % (34.2-44.1); HEMOGLOBIN 10.7 g/dL (12.0-16.0); LYMPHOCYTES # (AUTO) 0.6 (1.0-3.2); LYMPHOCYTES % 5.6 % (18.0-39.1); MEAN CORPUSCULAR HEMOGLOBIN 27.2 pg (28-32); MEAN CORPUSCULAR HGB CONC 30.7 g/dL (31-35); MEAN CORPUSCULAR VOLUME 88.3 fL (81-99); MONOCYTES # (AUTO) 0.5 (0.2-0.8); NEUTROPHILS # (AUTO) 9.9 (2.1-6.9); NEUTROPHILS % 87.8 % (38.7-80.0); PLATELET COUNT 153 x10e3/uL (140-360); RED BLOOD COUNT 3.94 x10e6/uL (3.6-5.1); RED CELL DISTRIBUTION WIDTH 15.9 % (11.7-14.4)
[2018-01-12 06:23] LABS: ANION GAP 13.9 mmol/L (8-16); BLOOD UREA NITROGEN 21 mg/dL (7-26); BUN/CREATININE RATIO 27 (6-25); CARBON DIOXIDE 33 mmol/L (22-29); CHLORIDE 98 mmol/L (98-107); CREATININE, SERUM 0.78 mg/dL (0.57-1.11); EST GLOMERULAR FILTRATION RATE > 60 ML/MIN (60-); GLUCOSE 191 mg/dL (74-118); MAGNESIUM 1.6 MG/DL (1.3-2.1); POTASSIUM 4.9 mmol/L (3.5-5.1); SODIUM 140 mmol/L (136-145)
--- NOTE | 2018-01-12 07:08 | Diagnostic Imaging Report ---
EXAMINATION: CHEST SINGLE (PORTABLE) INDICATION: Intubated. COMPARISON: 01/11/2018 FINDINGS: TUBES and LINES: Endotracheal and nasogastric tubes are stable. Endotracheal tube is just below the thoracic inlet 5.4 cm above the marlyn, advancement x 2 cm is recommended LUNGS: Lungs are not well inflated. There are bibasilar atelectasis. There is perihilar interstitial opacities, consistent with interstitial edema. PLEURA: No pleural effusion or pneumothorax. HEART AND MEDIASTINUM: Cardiac size is mildly enlarged. There are atherosclerotic calcifications within the aorta. BONES AND SOFT TISSUES: No acute osseous lesion. Soft tissues are unremarkable. UPPER ABDOMEN: No free air under the diaphragm. IMPRESSION: Advancement of endotracheal tube x 2 cm is recommended. Interval increase in interlobular septi thickening suggestive of edema Signed by: Dr. Cristhian Echeverria M.D. on 01/12/2018 7:04 AM
[2018-01-12] MEDS: INSULIN REGULAR, HUMAN 100 UNIT/1 ML 3ML VIAL SQ SCH ×4 (07:30→21:00)
[2018-01-12] MEDS: TOBRAMYCIN 40MG/ML 30ML MDV INH SCH ×2 (07:30→20:50)
[2018-01-12 08:11] LABS: CHOL/HDL RATIO 3.1 (3.0-3.6)
[2018-01-12] MEDS: NYSTATIN 15 GM POWDER UD BTL TOP SCH (09:00)
[2018-01-12] MEDS: PANTOPRAZOLE 40 MG 10ML VIAL IV SCH (09:00)
[2018-01-12] MEDS: METHYLPREDNISOLONE SOD SUCC 40 MG/ML VIAL IV SCH ×2 (09:00→21:19)
[2018-01-12] MEDS: BALSAM PERU/CASTOR OIL 60 GM OINT...G. TP SCH (09:00)
[2018-01-12] MEDS: SITAGLIPTIN 100 MG TAB PO SCH (09:00)
[2018-01-12] MEDS: OYST-CAL-D 500MG TABLET PO SCH (09:00)
[2018-01-12] MEDS: FUROSEMIDE 40 MG TAB PO SCH (09:00)
[2018-01-12] MEDS: POTASSIUM CHLORIDE 10 MEQ TABCR PO SCH ×2 (09:00→17:00)
[2018-01-12] MEDS: ALLOPURINOL 100 MG TAB PO SCH (09:00)
[2018-01-12] MEDS: METOPROLOL SUCCINATE 25 MG TAB XL PO SCH (09:00)
[2018-01-12] MEDS: MAGNESIUM OXIDE 400 MG TAB PO SCH ×2 (09:00→17:00)
--- NOTE | 2018-01-12 09:08 | Consultation ---
DATE OF CONSULTATION: January 12, 2018 HOSPITAL CONSULTATION HISTORY OF PRESENT ILLNESS: I was kindly asked to see this 67-year-old woman known to me from her [facility] admission for evaluation of possible tracheal stenosis. She underwent a tracheostomy by me on September 28, 2017, and was discharged from the hospital with a #6 Shiley XLT proximal tracheostomy tube. She had difficulty phonating. She was subsequently readmitted for sepsis and urinary tract infection, and continued to have difficulty with phonation. She was noted to have normal laryngeal function, but significant subglottic stenosis. She was noted to have limited excursion of her vocal cords bilaterally. However, the laryngeal inlet had an adequate airway. The vocal cords were otherwise normal. The visualized portion of the subglottis was normal. A fiberoptic examination performed on November 04, 2017, showed significant granulation tissue above the tracheostomy tube. The patient was then taken to the operating room on November 11, 2017, where she underwent micro direct laryngoscopy with excision of tracheal granulation tissue and tracheal balloon dilation. She was successfully decannulated at that time. She was found to have significant granulation tissue in the trachea at the time of surgery. She did well in the postoperative period until she developed progressive shortness of breath. She was a difficult intubation and subsequent bedside bronchoscopy demonstrated probable tracheal stenosis. PHYSICAL EXAMINATION HEENT: The patient has a well-healed tracheostomy site. Her examination was otherwise unremarkable. ASSESSMENT 1. Respiratory failure. 2. Tracheal stenosis. PLAN 1. Tracheostomy. 2. Direct laryngoscopy with visualization of the subglottis and trachea. Job#: [id number] SORAYA
[2018-01-12 11:56] LABS: ABG HCO3 40 mmol/L (23-28); ABG PCO2 57 mmHg (41-51); ABG PH 7.46 (7.31-7.41); ABG PO2 116 mmHg (80-105)
[2018-01-12] MEDS: SODIUM CHLORIDE 0.9% 1000ML 1,000 ML IV SCH (12:15)
--- NOTE | 2018-01-12 12:19 | Progress Note ---
DATE: January 12, 2018 TIME: 7:49 a.m. OVERNIGHT: The patient had worsening respiratory status and required intubation. Brought to the ICU for management for her bronchopneumonia and respiratory failure. REVIEW OF SYSTEMS: Unobtainable. PHYSICAL EXAMINATION VITAL SIGNS: Have been reviewed. GENERAL: A tired-appearing woman resting in bed. HEENT: Pupils are pinpoint. ET tube in place. OG tube in place. CARDIOVASCULAR: Normal S1 and S2. LUNGS: Coarse breath sounds. ABDOMEN: PEG in place. : Saunders in place. EXTREMITIES: Minimal edema of the extremities. SKIN: Dry. PSYCHIATRIC: Unable to assess. NEUROLOGIC: Sedated and restrained. LABS: Reviewed. MEDICATIONS: Reviewed. ASSESSMENT: A 67-year-old woman with: 1. Acute respiratory failure. 2. Enterobacter aerogenous bronchopneumonia. 3. Extended spectrum beta-lactamase Escherichia coli urinary tract infection. 4. Severe sepsis with acute kidney injury. 5. Diabetes mellitus, type 2: Hemoglobin A1c 6. 6. Hypothyroidism. 7. Normocytic anemia. 8. Pulmonary edema. 9. Dysphagia: Status post percutaneous endoscopic gastrostomy tube. 10. Gout. 11. Morbid obesity: Body mass index 43.7. PLAN 1. Continue IV meropenem for ESBL infection. 2. Continue IV Solu-Medrol as well as inhaled tobramycin. 3. Continue Lasix 40 mg daily. Consider changing to IV. 4. Continue Synthroid. 5. Continue IV PPI. 6. Continue SCDs and will add Lovenox 40 mg daily. The patient is allergic to heparin. Therefore, will just stick to SCD. 7. Continue glucose management. 8. Obtain lipid panel. 9. Continue allopurinol. 10. Will need caloric restriction output. 11. Leukocytosis had been improving, but increased again. Will continue to follow. 12. Continue tube feedings. 13. Continue sedatives. 14. Critical care time more than 35 minutes. Job#: [id number] SORAYA
[2018-01-12] MEDS: PROPOFOL IV EMULSION 10MG/ML 100 ML IV SCH ×3 (12:30→23:30)
[2018-01-12] MEDS: AMITRIPTYLINE HCL 25 MG TAB PO SCH (21:19)
[2018-01-13] VITALS (73 sets, daily range): BP systolic 103–179; BP diastolic 34–79
[2018-01-13] MEDS: LEVALBUTEROL HCL SOLN NEBU 0.63 MG/3 ML NEB INH SCH ×6 (03:00→22:39)
[2018-01-13] MEDS: IPRATROPIUM BROMIDE 0.02% 2.5 ML NEB NEB SCH ×5 (03:00→22:39)
[2018-01-13] MEDS: PROPOFOL IV EMULSION 10MG/ML 100 ML IV SCH ×4 (04:03→14:24)
[2018-01-13] MEDS: LEVOTHYROXINE SODIUM 50 MCG TAB PO SCH (06:05)
[2018-01-13] MEDS: GUAIFENESIN 600 MG TAB PO SCH ×3 (06:05→18:00)
[2018-01-13] MEDS: MEROPENEM 500 MG VIAL IV SCH ×3 (06:05→21:15)
[2018-01-13 06:07] LABS: BASOPHILS # (AUTO) 0.1 (0.0-0.1); BASOPHILS % 0.5 % (0.0-1.0); EOSINOPHILS % 0.1 % (0.0-6.0); HEMATOCRIT 34.9 % (34.2-44.1); LYMPHOCYTES # (AUTO) 0.7 (1.0-3.2); LYMPHOCYTES % 4.2 % (18.0-39.1); MEAN CORPUSCULAR HEMOGLOBIN 27.4 pg (28-32); MEAN CORPUSCULAR HGB CONC 31.5 g/dL (31-35); MONOCYTES # (AUTO) 0.5 (0.2-0.8); MONOCYTES % 2.9 % (4.4-11.3); NEUTROPHILS # (AUTO) 14.9 (2.1-6.9); NEUTROPHILS % 85.5 % (38.7-80.0); PLATELET COUNT 193 x10e3/uL (140-360); RED BLOOD COUNT 4.01 x10e6/uL (3.6-5.1); RED CELL DISTRIBUTION WIDTH 15.9 % (11.7-14.4)
[2018-01-13 06:36] LABS: ANION GAP 14.6 mmol/L (8-16); BLOOD UREA NITROGEN 27 mg/dL (7-26); CALCIUM 8.7 mg/dL (8.4-10.2); CARBON DIOXIDE 32 mmol/L (22-29); CHLORIDE 97 mmol/L (98-107); GLUCOSE 172 mg/dL (74-118); POTASSIUM 4.6 mmol/L (3.5-5.1); SODIUM 139 mmol/L (136-145)
[2018-01-13 06:49] LABS: CREATININE, SERUM 0.77 mg/dL (0.57-1.11); EST GLOMERULAR FILTRATION RATE > 60 ML/MIN (60-)
[2018-01-13 06:59] LABS: BUN/CREATININE RATIO 35 (6-25)
[2018-01-13] MEDS: INSULIN REGULAR, HUMAN 100 UNIT/1 ML 3ML VIAL SQ SCH ×3 (07:30→18:00)
[2018-01-13] MEDS: TOBRAMYCIN 40MG/ML 30ML MDV INH SCH ×2 (08:13→18:50)
[2018-01-13] MEDS: OYST-CAL-D 500MG TABLET PO SCH (08:27)
[2018-01-13] MEDS: MAGNESIUM OXIDE 400 MG TAB PO SCH ×2 (08:27→17:00)
[2018-01-13] MEDS: METHYLPREDNISOLONE SOD SUCC 40 MG/ML VIAL IV SCH ×2 (08:27→21:15)
[2018-01-13] MEDS: PANTOPRAZOLE 40 MG 10ML VIAL IV SCH (08:27)
[2018-01-13] MEDS: POTASSIUM CHLORIDE 10 MEQ TABCR PO SCH ×2 (08:27→17:00)
[2018-01-13] MEDS: SITAGLIPTIN 100 MG TAB PO SCH (08:27)
[2018-01-13] MEDS: FUROSEMIDE 40 MG TAB PO SCH (08:27)
[2018-01-13] MEDS: METOPROLOL SUCCINATE 25 MG TAB XL PO SCH (08:28)
[2018-01-13] MEDS: ALLOPURINOL 100 MG TAB PO SCH (08:28)
[2018-01-13] MEDS: NYSTATIN 15 GM POWDER UD BTL TOP SCH (08:28)
[2018-01-13] MEDS: BALSAM PERU/CASTOR OIL 60 GM OINT...G. TP SCH (08:28)
[2018-01-13 11:41] LABS: BAND NEUTROPHILS % (MANUAL) 6 %; LYMPHOCYTES % (MANUAL) 4 % (19-48); MONOCYTES % (MANUAL) 2 % (3.4-9.0); NEUTROPHILS % (MANUAL) 88 % (40-74)
[2018-01-13 11:42] LABS: ANISOCYTOSIS SLIGHT; PLATELET ESTIMATE ADEQUATE; PLATELET MORPHOLOGY COMMENT FEW LARGE; POIKILOCYTOSIS SLIGHT; RBC MORPHOLOGY COMMENT NORMAL
[2018-01-13] MEDS: VANCOMYCIN 250MG/5ML ORAL SOLN PO SCH ×2 (12:00→18:00)
[2018-01-13] MEDS ORDERED: LIDOCAINE 1% W/EPINEPHRINE 20 ML VIAL ONE (12:22)
[2018-01-13] MEDS: SODIUM CHLORIDE 0.9% 1000ML 1,000 ML IV SCH (14:25)
[2018-01-13] MEDS: CLINDAMYCIN PHOS 900MG/ D5W 50 50 ML IV SCH ×2 (14:25→21:15)
--- NOTE | 2018-01-13 14:39 | Operative Report ---
DATE OF PROCEDURE: January 13, 2018 PREOPERATIVE DIAGNOSES 1. Respiratory failure. 2. Tracheal stenosis. POSTOPERATIVE DIAGNOSES 1. Respiratory failure. 2. Tracheal stenosis. PROCEDURES 1. Tracheostomy. 2. Direct laryngoscopy. ANESTHESIA: General endotracheal. ESTIMATED BLOOD LOSS: Less than 10 mL. COMPLICATIONS: None. OPERATIVE FINDINGS: Granulation tissue both above and below the tracheostomy site with clinically significant tracheal stenosis. OPERATIVE INDICATION: This 67-year-old woman presented with a history of respiratory failure which necessitated previous tracheostomy. She was unable to be successfully decannulated and was returned to the operating room where she was noted to have significant granulation tissue which was partially resected and balloon dilation was performed. She was then successfully decannulated and did well until this episode which she developed progressive shortness of breath. She was found to have tracheal stenosis on bronchoscopy. The risks, benefits and alternative to surgical intervention were discussed in detail with the patient's family and they gave their informed consent to have this procedure performed. NARRATIVE REPORT: After first obtaining adequate general anesthesia through the previously placed endotracheal tube, the area of incision was infiltrated with 1% lidocaine with epinephrine 1:100,000, a total of 7 mL was used. The patient was then prepped and draped in the usual fashion. An elliptical incision was then made around the previous tracheostomy scar and into the subcutaneous tissues. The scar tract was then grasped with an Allis clamp and using the Bovie tailman a tract was carried down to the level of the anterior tracheal wall and removed. There was granulation tissue along the anterior tracheal wall. Taina hemostats were then used to open the previous tracheostomy site. Endotracheal tube was identified and partially withdrawn. An attempt was made to pass a #8 Shiley XLT proximal tracheostomy tube into the trachea however the tracheostomy tube could not be passed through the level of stenosis. The endotracheal tube was then reinserted and the patient ventilated and partially withdrawn. Again a #6 Shiley [employer]CRA[employer]ER tracheostomy tube was then placed to the level of stenosis and the balloon cuff inflated for a period of approximately 1 minute, deflated and removed and a #8 Shiley XLT tracheostomy tube was again attempted to be placed and could not be passed through the area of stenosis. The #8 tracheostomy tube was then removed and a #6 Shiley [employer]CRA[employer]ER tracheostomy tube then easily inserted through the tracheostomy site. CO2 was confirmed in the exhale gases. The tracheostomy tube was then sutured in place with 2-0 nylon. Trach ties were applied. Trach sponge was applied. The Dedo operating laryngoscope was then used to examine the larynx. There was noted to be poor excursion of the vocal cords however the visualized portion of the subglottic trachea also showed granulation tissue above the tracheostomy site. The laryngoscope was then removed and the patient was in satisfactory condition at the termination of the procedure and returned to intensive care unit in satisfactory condition. Job#: [id number] MOSES
--- NOTE | 2018-01-13 16:05 | Diagnostic Imaging Report ---
PROCEDURE: A single AP view of the chest. COMPARISON: 01/12/2018. INDICATIONS: PNEUMOTHORAX POST SURGERY FINDINGS: Limited examination due to patient rotation. Lines/tubes: Interval placement of a tracheostomy. Lungs: Subsegmental atelectasis in the left lung base. Mild interstitial opacities. Pleura: There is no pleural effusion or pneumothorax. Heart and mediastinum: The heart and the mediastinum are unchanged. Bones: Deformity of the humeral heads is unchanged and may reflect prior trauma or AVN. IMPRESSION: Limited examination due to patient rotation. No significant sized pneumothorax. Dictated by: Pedro Malone M.D. on 01/13/2018 at 16:06 Electronically approved by: Pedro Malone M.D. on 01/13/2018 at 16:06
[2018-01-13] MEDS ORDERED: MIDAZOLAM HCL 2 MG/2 ML VIAL ONE (17:09)
[2018-01-13] MEDS ORDERED: FENTANYL CITRATE/PF 100MCG/2 ML INJ ONE (17:09)
[2018-01-13] MEDS ORDERED: ROCURONIUM BROMIDE 10 MG/ML 5ML VIAL ONE (17:53)
[2018-01-13] MEDS ORDERED: SEVOFLURANE INHAL SOLN 250 ML PEN BTL ONE (17:53)
--- NOTE | 2018-01-13 20:03 | Diagnostic Imaging Report ---
RADIOGRAPH(S) OF THE ABDOMEN AND PELVIS, 2 view(s) HISTORY: Assess placement of PEG tube COMPARISON: None available. FINDINGS: Soft tissue attenuation partially limits sensitivity of the exam. Overlying monitoring leads. Paucity of bowel gas aside from a small amount in the right upper quadrant of the abdomen. A radiopaque tube and balloon project at the right upper quadrant of the abdomen. Chronic appearing deformity about the expected location of the left hip, correlate for prior proximal left femoral resection versus hardware removal. Moderate to severe multilevel degenerative changes of the lumbosacral spine. IMPRESSION: Radiopaque tubing and balloon project at the right upper quadrant the abdomen. Signed by: Dr. Eric Matta D.O., M.M.M. on 01/13/2018 7:59 PM
--- NOTE | 2018-01-13 20:06 | Diagnostic Imaging Report ---
A single frontal view of the chest. HISTORY: PICC line COMPARISON: Chest radiograph January 13, 2018 DISCUSSION: Portable technique, limits sensitivity of the exam. Soft tissue attenuation partially limits sensitivity of the exam. Left anterior oblique rotation further limits the examination. Numerous overlying monitoring leads. Tubes/Lines: Partially obscured tracheostomy tube. A right upper from a PICC line, the tip of the catheter projects near the expected location of the cavoatrial junction. Lungs and pleura: Low lung volumes result in bibasilar vascular crowding, accentuation of the pulmonary interstitial markings, central pulmonary vasculature, and the cardiac silhouette. Allowing for these limitations, the findings are as follows: No evidence of a consolidative pneumonia or pulmonary alveolar edema. No definite pleural effusion or pneumothorax is identified. Heart and mediastinum: The cardiomediastinal silhouette appears unremarkable. Bones: No acute osseous lesion is identified, given this limited exam. Bilateral severe degenerative changes of the glenohumeral joints. IMPRESSION: Status post right upper extremity PICC line placement. Signed by: Dr. Eric Matta D.O., M.M.M. on 01/13/2018 8:02 PM
[2018-01-13] MEDS: AMITRIPTYLINE HCL 25 MG TAB PO SCH (21:52)
[2018-01-14] VITALS (27 sets, daily range): BP systolic 91–128; BP diastolic 41–84
[2018-01-14] MEDS: LEVALBUTEROL HCL SOLN NEBU 0.63 MG/3 ML NEB INH SCH ×6 (02:55→22:58)
[2018-01-14] MEDS: SODIUM CHLORIDE 0.9% 1000ML 1,000 ML IV SCH (04:15)
[2018-01-14] MEDS: GUAIFENESIN 600 MG TAB PO SCH ×4 (05:50→17:52)
[2018-01-14] MEDS: VANCOMYCIN 250MG/5ML ORAL SOLN PO SCH ×4 (05:50→17:52)
[2018-01-14] MEDS: LEVOTHYROXINE SODIUM 50 MCG TAB PO SCH (05:50)
[2018-01-14] MEDS: CLINDAMYCIN PHOS 900MG/ D5W 50 50 ML IV SCH (05:50)
[2018-01-14] MEDS: MEROPENEM 500 MG VIAL IV SCH (05:50)
[2018-01-14] MEDS: INSULIN REGULAR, HUMAN 100 UNIT/1 ML 3ML VIAL SQ SCH ×4 (05:55→17:53)
[2018-01-14 05:58] LABS: BASOPHILS # (AUTO) 0.1 (0.0-0.1); BASOPHILS % 0.4 % (0.0-1.0); HEMATOCRIT 34.4 % (34.2-44.1); HEMOGLOBIN 10.9 g/dL (12.0-16.0); LYMPHOCYTES # (AUTO) 0.8 (1.0-3.2); LYMPHOCYTES % 3.9 % (18.0-39.1); MEAN CORPUSCULAR HEMOGLOBIN 26.8 pg (28-32); MEAN CORPUSCULAR HGB CONC 31.7 g/dL (31-35); MEAN CORPUSCULAR VOLUME 84.5 fL (81-99); MONOCYTES # (AUTO) 0.6 (0.2-0.8); NEUTROPHILS # (AUTO) 17.2 (2.1-6.9); NEUTROPHILS % 86.6 % (38.7-80.0); PLATELET COUNT 214 x10e3/uL (140-360); RED BLOOD COUNT 4.07 x10e6/uL (3.6-5.1)
[2018-01-14 06:10] LABS: ANION GAP 13.6 mmol/L (8-16); BLOOD UREA NITROGEN 28 mg/dL (7-26); BUN/CREATININE RATIO 37 (6-25); CALCIUM 8.3 mg/dL (8.4-10.2); CARBON DIOXIDE 33 mmol/L (22-29); CHLORIDE 97 mmol/L (98-107); CREATININE, SERUM 0.75 mg/dL (0.57-1.11); EST GLOMERULAR FILTRATION RATE > 60 ML/MIN (60-); GLUCOSE 192 mg/dL (74-118); POTASSIUM 4.6 mmol/L (3.5-5.1); SODIUM 139 mmol/L (136-145)
[2018-01-14] MEDS: IPRATROPIUM BROMIDE 0.02% 2.5 ML NEB NEB SCH ×4 (07:03→22:58)
--- NOTE | 2018-01-14 07:36 | Diagnostic Imaging Report ---
EXAMINATION: Chest, CHEST SINGLE (PORTABLE) INDICATION: Chest pain COMPARISON: Portable chest 01/13/2018 FINDINGS: LINES: Tracheostomy catheter is present with the tip projecting over the expected region of the trachea, positioned 6 cm from the marlyn. Heart: Normal cardiac silhouette. Vascular: The pulmonary vasculature is within normal limits. Atherosclerotic calcifications of the aortic arch. Mediastinum: No mediastinal, hilar, or axillary mass or lymphadenopathy. Lungs: No parenchymal mass. No focal consolidation. Low lung volumes are present bilaterally. Bibasilar atelectasis. Pleura: No pleural effusion. No pneumothorax. Bones: No acute osseous abnormality. Degenerative changes of the thoracic spine. Soft tissues: Normal. Impression: No acute radiographic abnormality. Signed by: Dr. Dave Tripp M.D. on 01/14/2018 7:33 AM
[2018-01-14] MEDS: TOBRAMYCIN 40MG/ML 30ML MDV INH SCH (07:42)
[2018-01-14] MEDS: PANTOPRAZOLE 40 MG 10ML VIAL IV SCH (09:54)
[2018-01-14] MEDS: METHYLPREDNISOLONE SOD SUCC 40 MG/ML VIAL IV SCH (09:56)
[2018-01-14] MEDS: POTASSIUM CHLORIDE 10 MEQ TABCR PO SCH ×2 (09:56→17:52)
[2018-01-14] MEDS: FUROSEMIDE 40 MG TAB PO SCH (09:56)
[2018-01-14] MEDS: SITAGLIPTIN 100 MG TAB PO SCH (09:56)
[2018-01-14] MEDS: BALSAM PERU/CASTOR OIL 60 GM OINT...G. TP SCH (09:57)
[2018-01-14] MEDS: NYSTATIN 15 GM POWDER UD BTL TOP SCH (09:57)
[2018-01-14] MEDS: MAGNESIUM OXIDE 400 MG TAB PO SCH ×2 (09:57→17:52)
[2018-01-14] MEDS: ALLOPURINOL 100 MG TAB PO SCH (09:57)
[2018-01-14] MEDS: METOPROLOL SUCCINATE 25 MG TAB XL PO SCH (09:57)
[2018-01-14] MEDS: OYST-CAL-D 500MG TABLET PO SCH (09:57)
[2018-01-14 13:42] LABS: BAND NEUTROPHILS % (MANUAL) 4 %; EOSINOPHILS % (MANUAL) 1 % (0-7); LYMPHOCYTES % (MANUAL) 5 % (19-48); MONOCYTES % (MANUAL) 4 % (3.4-9.0); NEUTROPHILS % (MANUAL) 86 % (40-74)
[2018-01-14 13:43] LABS: PLATELET ESTIMATE ADEQUATE; PLATELET MORPHOLOGY COMMENT NORMAL; RBC MORPHOLOGY COMMENT NORMAL
[2018-01-14] MEDS ORDERED: ENOXAPARIN SOD INJ 40 MG/0.4 ML SYR SC SCH (17:00)
[2018-01-14] MEDS: AMITRIPTYLINE HCL 25 MG TAB PO SCH (21:39)
[2018-01-15] VITALS (16 sets, daily range): BP systolic 115–146; BP diastolic 46–79
[2018-01-15] MEDS: VANCOMYCIN 250MG/5ML ORAL SOLN PO SCH ×5 (01:20→23:39)
[2018-01-15] MEDS: GUAIFENESIN 600 MG TAB PO SCH ×5 (01:20→23:39)
[2018-01-15] MEDS: LEVALBUTEROL HCL SOLN NEBU 0.63 MG/3 ML NEB INH SCH ×6 (02:33→22:45)
[2018-01-15] MEDS: LEVOTHYROXINE SODIUM 50 MCG TAB PO SCH (05:56)
[2018-01-15] MEDS: INSULIN REGULAR, HUMAN 100 UNIT/1 ML 3ML VIAL SQ SCH ×4 (06:06→17:00)
[2018-01-15 06:35] LABS: BASOPHILS # (AUTO) 0.2 (0.0-0.1); BASOPHILS % 0.5 % (0.0-1.0); EOSINOPHILS # (AUTO) 0.1 (0.0-0.4); EOSINOPHILS % 0.2 % (0.0-6.0); HEMATOCRIT 39.6 % (34.2-44.1); HEMOGLOBIN 12.4 g/dL (12.0-16.0); LYMPHOCYTES # (AUTO) 1.8 (1.0-3.2); LYMPHOCYTES % 5.7 % (18.0-39.1); MEAN CORPUSCULAR HEMOGLOBIN 27.2 pg (28-32); MEAN CORPUSCULAR HGB CONC 31.3 g/dL (31-35); MEAN CORPUSCULAR VOLUME 86.8 fL (81-99); MONOCYTES # (AUTO) 0.8 (0.2-0.8); MONOCYTES % 2.5 % (4.4-11.3); NEUTROPHILS # (AUTO) 26.5 (2.1-6.9); NEUTROPHILS % 85.5 % (38.7-80.0); PLATELET COUNT 227 x10e3/uL (140-360); RED BLOOD COUNT 4.56 x10e6/uL (3.6-5.1); RED CELL DISTRIBUTION WIDTH 16.3 % (11.7-14.4)
[2018-01-15 06:56] LABS: BLOOD UREA NITROGEN 29 mg/dL (7-26); BUN/CREATININE RATIO 39 (6-25); CALCIUM 8.5 mg/dL (8.4-10.2); CARBON DIOXIDE 35 mmol/L (22-29); CHLORIDE 94 mmol/L (98-107); CREATININE, SERUM 0.75 mg/dL (0.57-1.11); EST GLOMERULAR FILTRATION RATE > 60 ML/MIN (60-); GLUCOSE 171 mg/dL (74-118); SODIUM 138 mmol/L (136-145)
[2018-01-15] MEDS: IPRATROPIUM BROMIDE 0.02% 2.5 ML NEB NEB SCH ×3 (07:19→18:50)
[2018-01-15] MEDS ORDERED: METHYLPREDNISOLONE SOD SUCC 40 MG/ML VIAL IV SCH (09:00)
[2018-01-15] MEDS: PANTOPRAZOLE 40 MG 10ML VIAL IV SCH (09:20)
[2018-01-15] MEDS: FUROSEMIDE 40 MG TAB PO SCH (09:21)
[2018-01-15] MEDS: METOPROLOL SUCCINATE 25 MG TAB XL PO SCH (09:21)
[2018-01-15] MEDS: NYSTATIN 15 GM POWDER UD BTL TOP SCH (09:21)
[2018-01-15] MEDS: POTASSIUM CHLORIDE 10 MEQ TABCR PO SCH ×2 (09:21→16:30)
[2018-01-15] MEDS: MAGNESIUM OXIDE 400 MG TAB PO SCH ×2 (09:21→16:30)
[2018-01-15] MEDS: SITAGLIPTIN 100 MG TAB PO SCH (09:21)
[2018-01-15] MEDS: OYST-CAL-D 500MG TABLET PO SCH (09:21)
[2018-01-15] MEDS: BALSAM PERU/CASTOR OIL 60 GM OINT...G. TP SCH (09:21)
[2018-01-15] MEDS: ALLOPURINOL 100 MG TAB PO SCH (09:21)
[2018-01-15 11:49] LABS: BAND NEUTROPHILS % (MANUAL) 14 %; LYMPHOCYTES % (MANUAL) 4 % (19-48); MONOCYTES % (MANUAL) 3 % (3.4-9.0); NEUTROPHILS % (MANUAL) 79 % (40-74); PLATELET MORPHOLOGY COMMENT NORMAL; RBC MORPHOLOGY COMMENT NORMAL
[2018-01-15 11:50] LABS: PLATELET ESTIMATE ADEQUATE
[2018-01-15] MEDS: PROPOFOL IV EMULSION 10MG/ML 100 ML IV SCH (12:30)
[2018-01-15] MEDS: METRONIDAZOLE 500MG/NS 100ML 100 ML IV SCH ×2 (17:00→23:38)
[2018-01-15] MEDS: AMITRIPTYLINE HCL 25 MG TAB PO SCH (20:50)
[2018-01-16] VITALS (8 sets, daily range): BP systolic 104–141; BP diastolic 51–64
[2018-01-16] MEDS ORDERED: PANTOPRAZOLE SOD 40 MG TABEC PO ONE
[2018-01-16] MEDS: IPRATROPIUM BROMIDE 0.02% 2.5 ML NEB NEB SCH ×4 (02:50→18:49)
[2018-01-16] MEDS: LEVALBUTEROL HCL SOLN NEBU 0.63 MG/3 ML NEB INH SCH ×6 (02:50→22:00)
[2018-01-16] MEDS: LEVOTHYROXINE SODIUM 50 MCG TAB PO SCH (05:20)
[2018-01-16] MEDS: GUAIFENESIN 600 MG TAB PO SCH ×3 (06:00→17:17)
[2018-01-16] MEDS: INSULIN REGULAR, HUMAN 100 UNIT/1 ML 3ML VIAL SQ SCH ×4 (06:00→17:57)
[2018-01-16] MEDS: METRONIDAZOLE 500MG/NS 100ML 100 ML IV SCH ×3 (06:00→17:17)
[2018-01-16] MEDS: VANCOMYCIN 250MG/5ML ORAL SOLN PO SCH ×3 (06:00→17:17)
[2018-01-16 06:50] LABS: BASOPHILS # (AUTO) 0.1 (0.0-0.1); BASOPHILS % 0.4 % (0.0-1.0); EOSINOPHILS # (AUTO) 0.1 (0.0-0.4); EOSINOPHILS % 0.4 % (0.0-6.0); HEMATOCRIT 36.1 % (34.2-44.1); HEMOGLOBIN 11.6 g/dL (12.0-16.0); LYMPHOCYTES # (AUTO) 1.2 (1.0-3.2); LYMPHOCYTES % 4.4 % (18.0-39.1); MEAN CORPUSCULAR HEMOGLOBIN 27.5 pg (28-32); MEAN CORPUSCULAR HGB CONC 32.1 g/dL (31-35); MEAN CORPUSCULAR VOLUME 85.5 fL (81-99); MONOCYTES # (AUTO) 0.8 (0.2-0.8); MONOCYTES % 2.9 % (4.4-11.3); NEUTROPHILS # (AUTO) 23.2 (2.1-6.9); PLATELET COUNT 161 x10e3/uL (140-360); RED BLOOD COUNT 4.22 x10e6/uL (3.6-5.1); RED CELL DISTRIBUTION WIDTH 16.2 % (11.7-14.4)
[2018-01-16 07:14] LABS: ANION GAP 11.2 mmol/L (8-16); BLOOD UREA NITROGEN 27 mg/dL (7-26); BUN/CREATININE RATIO 36 (6-25); CALCIUM 8.4 mg/dL (8.4-10.2); CARBON DIOXIDE 36 mmol/L (22-29); CHLORIDE 94 mmol/L (98-107); CREATININE, SERUM 0.76 mg/dL (0.57-1.11); EST GLOMERULAR FILTRATION RATE > 60 ML/MIN (60-); GLUCOSE 186 mg/dL (74-118); POTASSIUM 4.2 mmol/L (3.5-5.1); SODIUM 137 mmol/L (136-145)
[2018-01-16] MEDS: MAGNESIUM OXIDE 400 MG TAB PO SCH ×2 (09:00→16:56)
[2018-01-16] MEDS: FUROSEMIDE 40 MG TAB PO SCH (09:00)
[2018-01-16] MEDS: ALLOPURINOL 100 MG TAB PO SCH (09:00)
[2018-01-16] MEDS: PANTOPRAZOLE 40 MG 10ML VIAL IV SCH (09:00)
[2018-01-16] MEDS: BALSAM PERU/CASTOR OIL 60 GM OINT...G. TP SCH (09:00)
[2018-01-16] MEDS: PANTOPRAZOLE SOD 40 MG TABEC PO SCH (09:00)
[2018-01-16] MEDS: POTASSIUM CHLORIDE 10 MEQ TABCR PO SCH ×2 (09:00→16:56)
[2018-01-16] MEDS: METOPROLOL SUCCINATE 25 MG TAB XL PO SCH (09:00)
[2018-01-16] MEDS: SITAGLIPTIN 100 MG TAB PO SCH (09:00)
[2018-01-16] MEDS: NYSTATIN 15 GM POWDER UD BTL TOP SCH (09:00)
[2018-01-16] MEDS: OYST-CAL-D 500MG TABLET PO SCH (09:00)
[2018-01-16 11:06] LABS: ANISOCYTOSIS SLIGHT; HYPOCHROMASIA SLIGHT; LYMPHOCYTES % (MANUAL) 5 % (19-48); METAMYELOCYTES % (MANUAL) 3 % (0-0); MONOCYTES % (MANUAL) 2 % (3.4-9.0); MYELOCYTES % (MANUAL) 1 % (0-0); NEUTROPHILS % (MANUAL) 89 % (40-74); PLATELET ESTIMATE ADEQUATE; PLATELET MORPHOLOGY COMMENT NORMAL; RBC MORPHOLOGY COMMENT NORMAL; SMUDGE CELLS FEW
[2018-01-16] MEDS ORDERED: SODIUM CHLORIDE 0.9% 250ML 250 ML ONE (12:17)
[2018-01-16] MEDS: PROPOFOL IV EMULSION 10MG/ML 100 ML IV SCH (12:30)
[2018-01-16] MEDS: CHOLESTYRAMINE 4 GM PACKET PO PRN (15:30)
[2018-01-16] MEDS: AMITRIPTYLINE HCL 25 MG TAB PO SCH (22:37)
[2018-01-17 00:21] VITALS: BP 110/53
[2018-01-17] MEDS: GUAIFENESIN 600 MG TAB PO SCH ×4 (00:34→17:34)
[2018-01-17] MEDS: VANCOMYCIN 250MG/5ML ORAL SOLN PO SCH ×4 (00:34→17:33)
[2018-01-17] MEDS: METRONIDAZOLE 500MG/NS 100ML 100 ML IV SCH ×4 (00:34→17:34)
[2018-01-17] MEDS: INSULIN REGULAR, HUMAN 100 UNIT/1 ML 3ML VIAL SQ SCH ×4 (00:35→18:00)
[2018-01-17] MEDS: IPRATROPIUM BROMIDE 0.02% 2.5 ML NEB NEB SCH ×4 (03:05→19:00)
[2018-01-17] MEDS: LEVALBUTEROL HCL SOLN NEBU 0.63 MG/3 ML NEB INH SCH ×6 (03:05→23:15)
[2018-01-17 04:55] VITALS: BP 120/59
[2018-01-17] MEDS: LEVOTHYROXINE SODIUM 50 MCG TAB PO SCH (05:43)
[2018-01-17 06:12] LABS: BASOPHILS # (AUTO) 0.1 (0.0-0.1); BASOPHILS % 0.5 % (0.0-1.0); EOSINOPHILS # (AUTO) 0.3 (0.0-0.4); EOSINOPHILS % 1.5 % (0.0-6.0); HEMATOCRIT 34.7 % (34.2-44.1); HEMOGLOBIN 11.1 g/dL (12.0-16.0); LYMPHOCYTES # (AUTO) 1.9 (1.0-3.2); LYMPHOCYTES % 9.3 % (18.0-39.1); MEAN CORPUSCULAR HEMOGLOBIN 27.3 pg (28-32); MEAN CORPUSCULAR VOLUME 85.5 fL (81-99); MONOCYTES # (AUTO) 1.1 (0.2-0.8); MONOCYTES % 5.3 % (4.4-11.3); NEUTROPHILS # (AUTO) 15.7 (2.1-6.9); NEUTROPHILS % 77.1 % (38.7-80.0); PLATELET COUNT 124 x10e3/uL (140-360); RED BLOOD COUNT 4.06 x10e6/uL (3.6-5.1); RED CELL DISTRIBUTION WIDTH 16.3 % (11.7-14.4)
[2018-01-17 06:57] LABS: ANION GAP 9.9 mmol/L (8-16); BLOOD UREA NITROGEN 22 mg/dL (7-26); BUN/CREATININE RATIO 32 (6-25); CALCIUM 8.2 mg/dL (8.4-10.2); CARBON DIOXIDE 35 mmol/L (22-29); CHLORIDE 94 mmol/L (98-107); CREATININE, SERUM 0.69 mg/dL (0.57-1.11); EST GLOMERULAR FILTRATION RATE > 60 ML/MIN (60-); GLUCOSE 163 mg/dL (74-118); MAGNESIUM 1.8 MG/DL (1.3-2.1); POTASSIUM 3.9 mmol/L (3.5-5.1); SODIUM 135 mmol/L (136-145)
[2018-01-17 07:37] VITALS: BP 119/58
[2018-01-17 08:26] LABS: EOSINOPHILS % (MANUAL) 3 % (0-7); LYMPHOCYTES % (MANUAL) 9 % (19-48); METAMYELOCYTES % (MANUAL) 2 % (0-0); MONOCYTES % (MANUAL) 3 % (3.4-9.0); MYELOCYTES % (MANUAL) 4 % (0-0); NEUTROPHILS % (MANUAL) 79 % (40-74)
[2018-01-17 08:27] LABS: ANISOCYTOSIS SLIGHT; PLATELET ESTIMATE SLIGHTLY DECREASED; PLATELET MORPHOLOGY COMMENT FEW LARGE; RBC MORPHOLOGY COMMENT NORMAL
[2018-01-17] MEDS: SITAGLIPTIN 100 MG TAB PO SCH (09:00)
[2018-01-17] MEDS: FUROSEMIDE 40 MG TAB PO SCH (09:00)
[2018-01-17] MEDS: CHOLESTYRAMINE 4 GM PACKET PO PRN ×2 (09:00→16:30)
[2018-01-17] MEDS: POTASSIUM CHLORIDE 10 MEQ TABCR PO SCH ×2 (09:00→17:00)
[2018-01-17] MEDS: BALSAM PERU/CASTOR OIL 60 GM OINT...G. TP SCH (09:00)
[2018-01-17] MEDS: OYST-CAL-D 500MG TABLET PO SCH (09:00)
[2018-01-17] MEDS: MAGNESIUM OXIDE 400 MG TAB PO SCH ×2 (09:00→17:00)
[2018-01-17] MEDS: PANTOPRAZOLE SOD 40 MG TABEC PO SCH (09:00)
[2018-01-17] MEDS: ALLOPURINOL 100 MG TAB PO SCH (09:00)
[2018-01-17] MEDS: METOPROLOL SUCCINATE 25 MG TAB XL PO SCH (09:00)
[2018-01-17 11:52] VITALS: BP 118/59
[2018-01-17] MEDS: PROPOFOL IV EMULSION 10MG/ML 100 ML IV SCH (12:30)
[2018-01-17 16:22] VITALS: BP 127/56
[2018-01-17 19:50] VITALS: BP 109/53
[2018-01-17] MEDS: AMITRIPTYLINE HCL 25 MG TAB PO SCH (21:06)
[2018-01-18] VITALS (7 sets, daily range): BP systolic 99–127; BP diastolic 50–60
[2018-01-18] MEDS: LEVALBUTEROL HCL SOLN NEBU 0.63 MG/3 ML NEB INH SCH ×6 (00:15→19:45)
[2018-01-18] MEDS: GUAIFENESIN 600 MG TAB PO SCH ×4 (00:37→18:06)
[2018-01-18] MEDS: VANCOMYCIN 250MG/5ML ORAL SOLN PO SCH ×4 (00:37→18:06)
[2018-01-18] MEDS: METRONIDAZOLE 500MG/NS 100ML 100 ML IV SCH ×4 (00:37→18:06)
[2018-01-18] MEDS: INSULIN REGULAR, HUMAN 100 UNIT/1 ML 3ML VIAL SQ SCH ×4 (00:38→18:07)
[2018-01-18] MEDS: IPRATROPIUM BROMIDE 0.02% 2.5 ML NEB NEB SCH ×4 (03:05→19:45)
[2018-01-18] MEDS: LEVOTHYROXINE SODIUM 50 MCG TAB PO SCH (06:04)
[2018-01-18 06:22] LABS: BASOPHILS # (AUTO) 0.1 (0.0-0.1); BASOPHILS % 0.4 % (0.0-1.0); EOSINOPHILS # (AUTO) 0.3 (0.0-0.4); EOSINOPHILS % 1.6 % (0.0-6.0); HEMATOCRIT 34.6 % (34.2-44.1); HEMOGLOBIN 11.1 g/dL (12.0-16.0); LYMPHOCYTES # (AUTO) 1.5 (1.0-3.2); LYMPHOCYTES % 9.4 % (18.0-39.1); MEAN CORPUSCULAR HEMOGLOBIN 27.3 pg (28-32); MEAN CORPUSCULAR HGB CONC 32.1 g/dL (31-35); MEAN CORPUSCULAR VOLUME 85.2 fL (81-99); MONOCYTES # (AUTO) 1.2 (0.2-0.8); MONOCYTES % 7.2 % (4.4-11.3); NEUTROPHILS # (AUTO) 12.4 (2.1-6.9); NEUTROPHILS % 77.1 % (38.7-80.0); PLATELET COUNT 112 x10e3/uL (140-360); RED BLOOD COUNT 4.06 x10e6/uL (3.6-5.1)
[2018-01-18 06:57] LABS: ANION GAP 10.7 mmol/L (8-16); BLOOD UREA NITROGEN 16 mg/dL (7-26); BUN/CREATININE RATIO 25 (6-25); CALCIUM 8.2 mg/dL (8.4-10.2); CARBON DIOXIDE 33 mmol/L (22-29); CHLORIDE 95 mmol/L (98-107); CREATININE, SERUM 0.64 mg/dL (0.57-1.11); EST GLOMERULAR FILTRATION RATE > 60 ML/MIN (60-); GLUCOSE 149 mg/dL (74-118); MAGNESIUM 1.8 MG/DL (1.3-2.1); POTASSIUM 3.7 mmol/L (3.5-5.1); SODIUM 135 mmol/L (136-145)
--- NOTE | 2018-01-18 08:00 | Diagnostic Imaging Report ---
PROCEDURE:X-RAY MODIFIED BARIUM SWALLOW COMPARISON:None. INDICATIONS:Bronchitis. Sepsis. DISCUSSION:Fluoroscopic examination was performed in conjunction with speech pathology, during swallowing of a variety of thin and thick liquid consistencies. CONCLUSION:Silent trace aspiration. Please see the report from speech pathology for complete details. Dictated by: Dave Tripp M.D. on 01/18/2018 at 8:01 Electronically approved by: Dave Tripp M.D. on 01/18/2018 at 8:01
[2018-01-18 08:29] LABS: ANISOCYTOSIS SLIG; LYMPHOCYTES % (MANUAL) 6 % (19-48); METAMYELOCYTES % (MANUAL) 1 % (0-0); MONOCYTES % (MANUAL) 8 % (3.4-9.0); MYELOCYTES % (MANUAL) 4 % (0-0); NEUTROPHILS % (MANUAL) 81 % (40-74); PLATELET ESTIMATE SLIGHTLY DECREASED; POIKILOCYTOSIS SLIGHT; RBC MORPHOLOGY COMMENT NORMAL
[2018-01-18 08:30] LABS: PLATELET MORPHOLOGY COMMENT FEW LARGE
[2018-01-18] MEDS: SITAGLIPTIN 100 MG TAB PO SCH (09:46)
[2018-01-18] MEDS: POTASSIUM CHLORIDE 10 MEQ TABCR PO SCH ×2 (09:49→18:06)
[2018-01-18] MEDS: FUROSEMIDE 40 MG TAB PO SCH (09:49)
[2018-01-18] MEDS: PANTOPRAZOLE SOD 40 MG TABEC PO SCH (09:49)
[2018-01-18] MEDS: OYST-CAL-D 500MG TABLET PO SCH (09:49)
[2018-01-18] MEDS: MAGNESIUM OXIDE 400 MG TAB PO SCH ×2 (09:49→18:06)
[2018-01-18] MEDS: BALSAM PERU/CASTOR OIL 60 GM OINT...G. TP SCH (09:50)
[2018-01-18] MEDS: ALLOPURINOL 100 MG TAB PO SCH (09:50)
[2018-01-18] MEDS: METOPROLOL SUCCINATE 25 MG TAB XL PO SCH (09:50)
[2018-01-18] MEDS ORDERED: DICYCLOMINE HCL 10 MG CAP PEG PRN (10:30)
[2018-01-18] MEDS: PROPOFOL IV EMULSION 10MG/ML 100 ML IV SCH (12:30)
[2018-01-18] MEDS ORDERED: SODIUM CHLORIDE 0.9% 250ML 250 ML ONE (14:06)
[2018-01-18] MEDS: AMITRIPTYLINE HCL 25 MG TAB PO SCH (21:30)
[2018-01-19] VITALS (7 sets, daily range): BP systolic 86–121; BP diastolic 45–60
[2018-01-19] MEDS: METRONIDAZOLE 500MG/NS 100ML 100 ML IV SCH ×4 (00:35→18:17)
[2018-01-19] MEDS: GUAIFENESIN 600 MG TAB PO SCH ×4 (00:35→18:17)
[2018-01-19] MEDS: ACETAMINOPHEN 325 MG TAB PO PRN (00:35)
[2018-01-19] MEDS: VANCOMYCIN 250MG/5ML ORAL SOLN PO SCH ×4 (00:35→18:17)
[2018-01-19] MEDS: CHOLESTYRAMINE 4 GM PACKET PO PRN (01:32)
[2018-01-19] MEDS: INSULIN REGULAR, HUMAN 100 UNIT/1 ML 3ML VIAL SQ SCH ×4 (01:36→16:34)
[2018-01-19] MEDS: LEVALBUTEROL HCL SOLN NEBU 0.63 MG/3 ML NEB INH SCH ×5 (02:30→19:30)
[2018-01-19] MEDS: IPRATROPIUM BROMIDE 0.02% 2.5 ML NEB NEB SCH ×4 (02:30→19:30)
[2018-01-19] MEDS: LEVOTHYROXINE SODIUM 50 MCG TAB PO SCH (05:20)
[2018-01-19 06:45] LABS: BASOPHILS % 0.2 % (0.0-1.0); EOSINOPHILS # (AUTO) 0.2 (0.0-0.4); EOSINOPHILS % 1.7 % (0.0-6.0); HEMOGLOBIN 10.6 g/dL (12.0-16.0); LYMPHOCYTES # (AUTO) 1.2 (1.0-3.2); LYMPHOCYTES % 9.2 % (18.0-39.1); MEAN CORPUSCULAR HEMOGLOBIN 27.4 pg (28-32); MEAN CORPUSCULAR HGB CONC 32.1 g/dL (31-35); MEAN CORPUSCULAR VOLUME 85.3 fL (81-99); MONOCYTES # (AUTO) 1.2 (0.2-0.8); MONOCYTES % 9.1 % (4.4-11.3); NEUTROPHILS # (AUTO) 10.2 (2.1-6.9); NEUTROPHILS % 77.5 % (38.7-80.0); PLATELET COUNT 90 x10e3/uL (140-360); RED BLOOD COUNT 3.87 x10e6/uL (3.6-5.1); RED CELL DISTRIBUTION WIDTH 15.9 % (11.7-14.4)
[2018-01-19 07:18] LABS: ANION GAP 12.3 mmol/L (8-16); BLOOD UREA NITROGEN 13 mg/dL (7-26); BUN/CREATININE RATIO 21 (6-25); CALCIUM 8.3 mg/dL (8.4-10.2); CARBON DIOXIDE 32 mmol/L (22-29); CHLORIDE 95 mmol/L (98-107); CREATININE, SERUM 0.62 mg/dL (0.57-1.11); EST GLOMERULAR FILTRATION RATE > 60 ML/MIN (60-); GLUCOSE 164 mg/dL (74-118); MAGNESIUM 1.5 MG/DL (1.3-2.1); POTASSIUM 3.3 mmol/L (3.5-5.1); SODIUM 136 mmol/L (136-145)
[2018-01-19 08:54] LABS: EOSINOPHILS % (MANUAL) 1 % (0-7); LYMPHOCYTES % (MANUAL) 9 % (19-48); MONOCYTES % (MANUAL) 9 % (3.4-9.0); NEUTROPHILS % (MANUAL) 81 % (40-74)
[2018-01-19 08:55] LABS: ANISOCYTOSIS SLIGHT; HYPOCHROMASIA SLIGHT; PLATELET ESTIMATE SLIGHTLY DECREASED
[2018-01-19 08:56] LABS: PLATELET MORPHOLOGY COMMENT FEW LARGE; RBC MORPHOLOGY COMMENT NORMAL
[2018-01-19] MEDS: SITAGLIPTIN 100 MG TAB PO SCH (09:11)
[2018-01-19] MEDS: MAGNESIUM OXIDE 400 MG TAB PO SCH ×2 (09:12→18:17)
[2018-01-19] MEDS: POTASSIUM CHLORIDE 10 MEQ TABCR PO SCH ×2 (09:12→17:00)
[2018-01-19] MEDS: OYST-CAL-D 500MG TABLET PO SCH (09:12)
[2018-01-19] MEDS: ALLOPURINOL 100 MG TAB PO SCH (09:12)
[2018-01-19] MEDS: METOPROLOL SUCCINATE 25 MG TAB XL PO SCH (09:12)
[2018-01-19] MEDS: FUROSEMIDE 40 MG TAB PO SCH (09:12)
[2018-01-19] MEDS: PANTOPRAZOLE SOD 40 MG TABEC PO SCH (09:12)
[2018-01-19] MEDS: BALSAM PERU/CASTOR OIL 60 GM OINT...G. TP SCH (09:13)
[2018-01-19] MEDS ORDERED: SIMETHICONE 80 MG CHEW PO PRN (11:15)
[2018-01-19] MEDS ORDERED: POTASSIUM CHLORIDE 20 MEQ TAB CR PO NR (11:30)
[2018-01-19] MEDS: AMITRIPTYLINE HCL 25 MG TAB PO SCH (21:00)
[2018-01-19] MEDS: NEOMYCIN/POLYMYXIN/BACITRACIN 15 GM TUBE TOP SCH (21:05)
[2018-01-19] MEDS: SALINE 0.65% NAS SOLN 1 SPRAY BTL SCH (22:00)
[2018-01-20] VITALS (7 sets, daily range): BP systolic 103–133; BP diastolic 55–70
[2018-01-20] MEDS: VANCOMYCIN 250MG/5ML ORAL SOLN PO SCH ×2 (00:28→06:00)
[2018-01-20] MEDS: METRONIDAZOLE 500MG/NS 100ML 100 ML IV SCH ×4 (00:28→18:39)
[2018-01-20] MEDS: GUAIFENESIN 600 MG TAB PO SCH ×4 (00:28→18:39)
[2018-01-20] MEDS: ACETAMINOPHEN 325 MG TAB PO PRN (00:35)
[2018-01-20] MEDS: CHOLESTYRAMINE 4 GM PACKET PO PRN ×2 (00:36→00:38)
[2018-01-20] MEDS: LEVALBUTEROL HCL SOLN NEBU 0.63 MG/3 ML NEB INH SCH ×4 (03:55→15:00)
[2018-01-20] MEDS: IPRATROPIUM BROMIDE 0.02% 2.5 ML NEB NEB SCH ×4 (03:55→19:15)
[2018-01-20] MEDS: LEVOTHYROXINE SODIUM 50 MCG TAB PO SCH (06:00)
[2018-01-20] MEDS: SALINE 0.65% NAS SOLN 1 SPRAY BTL SCH ×5 (06:00→20:58)
[2018-01-20] MEDS: INSULIN REGULAR, HUMAN 100 UNIT/1 ML 3ML VIAL SQ SCH ×4 (06:29→18:39)
[2018-01-20 07:01] LABS: BASOPHILS % 0.3 % (0.0-1.0); EOSINOPHILS # (AUTO) 0.2 (0.0-0.4); EOSINOPHILS % 1.4 % (0.0-6.0); HEMATOCRIT 31.7 % (34.2-44.1); HEMOGLOBIN 10.1 g/dL (12.0-16.0); LYMPHOCYTES % 8.1 % (18.0-39.1); MEAN CORPUSCULAR HEMOGLOBIN 27.3 pg (28-32); MEAN CORPUSCULAR HGB CONC 31.9 g/dL (31-35); MEAN CORPUSCULAR VOLUME 85.7 fL (81-99); MONOCYTES # (AUTO) 1.2 (0.2-0.8); MONOCYTES % 9.2 % (4.4-11.3); NEUTROPHILS % 79.3 % (38.7-80.0); PLATELET COUNT 82 x10e3/uL (140-360); RED CELL DISTRIBUTION WIDTH 15.9 % (11.7-14.4)
[2018-01-20 07:16] LABS: ANION GAP 12.1 mmol/L (8-16); BLOOD UREA NITROGEN 11 mg/dL (7-26); BUN/CREATININE RATIO 19 (6-25); CALCIUM 8.3 mg/dL (8.4-10.2); CARBON DIOXIDE 32 mmol/L (22-29); CHLORIDE 95 mmol/L (98-107); CREATININE, SERUM 0.59 mg/dL (0.57-1.11); EST GLOMERULAR FILTRATION RATE > 60 ML/MIN (60-); GLUCOSE 140 mg/dL (74-118); MAGNESIUM 1.4 MG/DL (1.3-2.1); POTASSIUM 3.1 mmol/L (3.5-5.1); SODIUM 136 mmol/L (136-145)
[2018-01-20 08:32] LABS: BAND NEUTROPHILS % (MANUAL) 1 %; LYMPHOCYTES % (MANUAL) 9 % (19-48); METAMYELOCYTES % (MANUAL) 1 % (0-0); MONOCYTES % (MANUAL) 1 % (3.4-9.0); NEUTROPHILS % (MANUAL) 87 % (40-74)
[2018-01-20 08:33] LABS: PLATELET MORPHOLOGY COMMENT FEW LARGE; RBC MORPHOLOGY COMMENT NORMAL
[2018-01-20 08:34] LABS: HYPERSEGMENTED NEUTROPHILS FEW; PLATELET ESTIMATE SLIGHTLY DECREASED
[2018-01-20] MEDS: METOPROLOL SUCCINATE 25 MG TAB XL PO SCH (09:00)
[2018-01-20] MEDS: FUROSEMIDE 40 MG TAB PO SCH (09:33)
[2018-01-20] MEDS: OYST-CAL-D 500MG TABLET PO SCH (09:33)
[2018-01-20] MEDS: MAGNESIUM OXIDE 400 MG TAB PO SCH ×2 (09:33→16:53)
[2018-01-20] MEDS: BALSAM PERU/CASTOR OIL 60 GM OINT...G. TP SCH (09:33)
[2018-01-20] MEDS: ALLOPURINOL 100 MG TAB PO SCH (09:33)
[2018-01-20] MEDS: POTASSIUM CHLORIDE 10 MEQ TABCR PO SCH ×2 (09:33→16:53)
[2018-01-20] MEDS: SITAGLIPTIN 100 MG TAB PO SCH (09:33)
[2018-01-20] MEDS: NEOMYCIN/POLYMYXIN/BACITRACIN 15 GM TUBE TOP SCH ×3 (09:33→20:58)
[2018-01-20] MEDS: PANTOPRAZOLE SOD 40 MG TABEC PO SCH (09:33)
[2018-01-20] MEDS ORDERED: MAGNESIUM SULFATE 2GM/50ML 50 ML IV ONE (12:45)
[2018-01-20] MEDS ORDERED: MAGNESIUM OXID400 MG PO (13:56)
[2018-01-20] MEDS ORDERED: HUMULIN R100 UNIT/2 SQ (13:56)
[2018-01-20] MEDS ORDERED: IPRATROPIU0.2 MG/1 M NEB (13:56)
[2018-01-20] MEDS ORDERED: ACETAMINOPHEN325 M1 PO (13:56)
[2018-01-20] MEDS ORDERED: TRIPLE ANTIBIOT28 GM TOP (13:56)
[2018-01-20] MEDS ORDERED: VENELEX OINTMEN60 GM TP (13:56)
[2018-01-20] MEDS ORDERED: SALINE 0.65% (13:56)
[2018-01-20] MEDS ORDERED: TOPROL XL25 MG PO (13:56)
[2018-01-20] MEDS ORDERED: Calcium Carbonate PO (13:56)
[2018-01-20] MEDS ORDERED: PROTONIX40 MG/ML PO (13:56)
[2018-01-20] MEDS ORDERED: MUCINEX600 MG PO (13:56)
[2018-01-20] MEDS ORDERED: CHOLESTYRAMINE L4 GM PO (13:56)
[2018-01-20] MEDS ORDERED: XOPENEX0.63 MG/3 INH ×2 (13:56)
[2018-01-20] MEDS ORDERED: SIMETHICONE80 MG PO (13:56)
--- NOTE | 2018-01-20 14:53 | Discharge Summary ---
PERTINENT HISTORY AND PHYSICAL FINDINGS: Ms. Lopez is a 67-year-old female who had been seen at [facility] for evaluation of possible tracheal stenosis. She underwent a tracheostomy on September 28, 2017, was discharged from the hospital with a number 6 Shiley XLT proximal tracheostomy tube. She had difficulty phonating and was subsequently readmitted for sepsis and urinary tract infection and continued to have difficulty with phonation. She was noted to have normal laryngeal function but significant subglottic stenosis and was followed by Dr. Rufus Hill. Fiberoptic examination performed on November 04, 2017, showed significant granulation tissue above the tracheostomy tube. Patient was then taken to the operating room on November 11 where she underwent microdirect laryngoscopy with excision of tracheal granulation tissue and tracheal balloon dilation. She was successfully decannulated at that time. She did well postoperatively until she developed progressive shortness of breath. She was a difficult intubation, and subsequent bedside bronchoscopy had demonstrated probable tracheal stenosis. During her stay here, she underwent another tracheostomy placement on January 13, 2018, by Dr. Rufus Hill. She was admitted here for possible sepsis, pneumonia, and she has a history of multidrug-resistant pneumonias. She did require ICU management and mechanical ventilation. Dr. Augustin with pulmonology followed the patient. Dr. Batista with infectious disease was also consulted. Her past medical history includes sepsis, pneumonia, C. difficile colitis, type 2 diabetes mellitus, urinary tract infection, gout, hypothyroidism, left hip replacement, PEG, hysterectomy, tonsillectomy. ADMITTING DIAGNOSES: Included 1. Bronchopneumonia. 2. Urinary tract infection with sepsis. 3. Type 2 diabetes mellitus. 4. Tachycardia. 5. Hypothyroidism. DISCHARGE DIAGNOSES 1. Respiratory failure with tracheal stenosis and bronchopneumonia, status post tracheostomy placement January 13, 2018, by Dr. Hill with ENT. 2. Clostridium difficile colitis. 3. Urinary tract infection with extended-spectrum beta-lactamase Escherichia coli. 4. Type 2 diabetes mellitus. 5. Leukocytosis. 6. Hypokalemia. 7. Hypocalcemia. 8. Hypomagnesemia. 9. Percutaneous endoscopic gastrotomy/gastrotomy tube status. On admission WBC 24.82, hemoglobin 11.2, hematocrit 35.5, neutrophils 88.5%, platelets 97,000. INR 1.22. Sodium 138, potassium 3.5, chloride 100, CO2 26, BUN 16, creatinine 0.88, GFR greater than 60, glucose 135, calcium 8.4. Total bilirubin 0.6, AST 9, ALT 12, alk phos 103. Creatine kinase 17, troponin I 0.010. Total protein 5.8, albumin 2.6. B-type natriuretic peptide 61.5. Urinalysis with positive nitrites, 2+ blood, 1+ leukocyte esterase, RBC 11-20, many urine bacteria, urine positive for ESBL E. coli from January 06. On January 08, sputum positive for Enterobacter aerogenes. On January 11, sputum positive for Enterobacter aerogenes and MRSA. January 12, stool positive for C. difficile toxin. Chest x-ray on January 06 showed no acute cardiopulmonary abnormalities, lungs well inflated and grossly clear, no evidence of pneumonia or pulmonary edema. Most recent chest x-ray on January 14 showed no acute radiographic abnormality. Modified barium swallow on January 17 showed silent trace aspiration. EKG on January 06 showed sinus tachycardia with a right bundle branch block. A 12-lead EKG on January 11 showed normal sinus rhythm with a right bundle branch block. Right upper extremity PICC line was placed on January 13. Bronchoscopy was performed on January 11. Today sodium 136, potassium 3.1, chloride 95, CO2 32, BUN 11, creatinine 0.58, glucose 140. WBC 12.6, hemoglobin 10.1, hematocrit 31.7, platelets 82,000. GFR greater than 60. Calcium 8.3, magnesium 1.4. Fingerstick blood glucose levels 114, 125, 141. The patient will remain on IV Flagyl. Right PICC line will remain, will ask nursing to change the dressing prior to discharge. Give magnesium sulfate IV, and patient to receive potassium chloride after transfer to [facility]. Today the patient has no complaints of pain. A 14-point review of systems completed, and only complaint was that of diarrhea, 1 diarrhea stool yesterday and 2 diarrhea stools today. PHYSICAL EXAMINATION VITAL SIGNS: Temperature 97.8, heart rate 87, blood pressure 108/55, respirations 20, oxygen saturation 97%. GENERAL: Obese female lying supine in bed, no acute distress. LUNGS: Generally clear to auscultation with diminished bases. She has a tracheostomy with FIO2 of 60% via humidified aerosol trach collar. HEENT: Extraocular eye movements intact. NECK: Supple. No lymphadenopathy. CARDIOVASCULAR: Regular rate and rhythm. No murmur appreciated. Right upper extremity PICC. ABDOMEN: Bowel sounds positive. Large, obese, soft. No guarding. She has a PEG with Vital AF at 50 mL an hour, a Saunders catheter with clear yellow urine. EXTREMITIES: Without pitting edema. No clubbing or cyanosis. No signs or symptoms of DVT. NEUROLOGICAL: GCS of 10T. Eye 4, verbal T, motor 5. Continue tube feeding diet, activity level as tolerated, physical therapy and occupational therapy to continue. The patient will likely be followed by Chen, nurse practitioner with Dr. Ilan Stein, at [facility]. Dictated by: Kei Bundy NP ILAN STEIN MD Job#: [id number]
[2018-01-20] MEDS ORDERED: POTASSIUM CHLORIDE 20MEQ/15ML UDC ONE (16:40)
[2018-01-20] MEDS ORDERED: POTASSIUM CHLORIDE 20MEQ/15ML UDC NG ONE (17:00)
[2018-01-20] MEDS: LEVALBUTEROL HCL SOLN NEBU 0.63 MG/3 ML NEB INH PRN ×2 (19:15→23:00)
[2018-01-20] MEDS: AMITRIPTYLINE HCL 25 MG TAB PO SCH (20:58)
== END 2018-01-20 23:53 | DRG 4 ==
LOC: ER 17:07 → ERHOLD 18:52 → IMCU 22:28 → MED/SURG3 01-09 15:24 → ICU 01-11 10:27 → MED/SURG2 01-15 15:41
PROVIDERS: ADMIT Internal Medicine; ATTEND Internal Medicine
PROC: 5A1945Z Respiratory Ventilation, 24-96 Consecutive Hours (ICD-10-PCS; 2018-01-11)
PROC: 0BH17EZ Insertion of Endotracheal Airway into Trachea, Via Natural or Artificial Opening (ICD-10-PCS; 2018-01-11)
PROC: 0BJ08ZZ Inspection of Tracheobronchial Tree, Via Natural or Artificial Opening Endoscopic (ICD-10-PCS; 2018-01-11)
PROC: 0CJS8ZZ Inspection of Larynx, Via Natural or Artificial Opening Endoscopic (ICD-10-PCS; 2018-01-13)
PROC: 02HV33Z Insertion of Infusion Device into Superior Vena Cava, Percutaneous Approach (ICD-10-PCS; 2018-01-13)
PROC: 0B110F4 Bypass Trachea to Cutaneous with Tracheostomy Device, Open Approach (ICD-10-PCS; principal; 2018-01-13 12:30)
DX: A41.9 Sepsis, unspecified organism (principal); J96.90 Respiratory failure, unspecified, unspecified whether with hypoxia or hypercapnia; J15.6 Pneumonia due to other Gram-negative bacteria; J15.212 Pneumonia due to Methicillin resistant Staphylococcus aureus; N17.9 Acute kidney failure, unspecified; Z68.41 Body mass index [BMI] 40.0-44.9, adult; N39.0 Urinary tract infection, site not specified; A04.72 Enterocolitis due to Clostridium difficile, not specified as recurrent; R13.10 Dysphagia, unspecified; Z16.24 Resistance to multiple antibiotics; B96.20 Unspecified Escherichia coli [E. coli] as the cause of diseases classified elsewhere; Z16.12 Extended spectrum beta lactamase (ESBL) resistance; Z78.1 Physical restraint status; J39.8 Other specified diseases of upper respiratory tract; E11.9 Type 2 diabetes mellitus without complications; D64.9 Anemia, unspecified; M10.9 Gout, unspecified; E03.9 Hypothyroidism, unspecified; Z93.1 Gastrostomy status; E87.6 Hypokalemia; E83.51 Hypocalcemia; E83.42 Hypomagnesemia; E66.01 Morbid (severe) obesity due to excess calories; L89.892 Pressure ulcer of other site, stage 2; R53.81 Other malaise; Z79.4 Long term (current) use of insulin; Z79.52 Long term (current) use of systemic steroids
CPT/HCPCS: 36415; 36569; 36600; 71045; 71260; 74018; 74230; 80048; 80053; 80061; 81001; 82550; 82553; 82805; 82948; 83036; 83605; 83735; 83880; 84439; 84443; 84484; 85025; 85379; 85610; 85730; 87040; 87070; 87086; 87186; 87205; 87493; 93005; 94002; 94003; 94640; 96361; 96372; 97139; 99285; J0330; J0456; J0610; J0692; J2060; J2185; J2250; J2543; J2920; J3260; J3370; J3475; J7030; J7040; J7050; Q9967

== ENCOUNTER 2018-02-10 18:18 | Emergency (ER) | payer MEDICARE, OTHER ==
[~2018-02-10] VITALS: Ht 167.6 cm; Wt 122.9 kg
[~2018-02-10 18:18] MED LIST: ACETAMINOPHEN325 M1 PO; ALLOPURINOL100 MG PO; AMITRIPTYLINE H25 MG PO; BUDESONIDE EC3 MG INH; CHOLESTYRAMINE L4 GM PO; COMBIVENT RESPIM4 GM IH; Calcium Carbonate PO; DICYCLOMINE HCL20 MG PO; HUMULIN R100 UNIT/2 SQ; IPRATROPIU0.2 MG/1 M NEB; JANUVIA100 MG PO; LASIX40 MG PO; LEVOTHYROXINE50 MCG PO; MAGNESIUM OXID400 MG PO; METFORMIN HCL500 MG PO; MUCINEX600 MG PO; POTASSIUM CHLO10 ME1 PO; PREDNISONE20 MG PO; PROTONIX40 MG/ML PO; SALINE 0.65%; SIMETHICONE80 MG PO; TOPROL XL25 MG PO; TRIPLE ANTIBIOT28 GM TOP; VENELEX OINTMEN60 GM TP; XOPENEX0.63 MG/3 INH
--- OUTSIDE RECORDS SUMMARY | 2018-02-10 18:21 | XMS REPORT | Continuity of Care Document ---
Author Author [facility] Organization [facility] Address [address] [address] Phone Unavailable Care Team Providers Care Movement Assembly Final Inspector Name Role Phone NO, PCP PCP Unavailable Insurance Providers Guarantor Janis Cummings Address [address] [place] [address] Email NONE [facility] Policy Number [id number] Subscriber's Name Janis Cummings Relationship 18 Self / Same As Patient Effective Date 17 [facility] Policy Number [id number] Subscriber's Name Janis Cummings Relationship 18 Self / Same As Patient Effective Date 17 Advance Directives Directive Response Recorded Date/Time Does the patient have an advance directive? No 01/06/18 11:53pm If yes, is advance directive [facility]? No 01/06/18 11:53pm If not on file with [facility] will patient provide a copy? Yes 01/06/18 11:53pm Do you have a Directive to Physician? No 01/06/18 7:13pm Do you have a Medical Power of Structural Manager? No 01/06/18 7:13pm Do you have an out of hospital Do Not Resuscitate Order? No 01/06/18 7:13pm Do you have any special needs we should be aware of? No 01/06/18 7:13pm Do you have a support person here with you today? Yes 01/06/18 7:13pm Did patient receive Notice of Privacy Practices? Yes 01/06/18 7:13pm Did patient receive patient rights and responsibilities? Yes 01/06/18 7:13pm Problems No problem information available. Medications Current Home Medications Medication Dose Units Route Directions Days Qty Instructions Start Date Acetaminophen 325 Mg Tablet 650 Mg Oral Every 4 Hours as needed for Pain And Temperature 01/20/18 Allopurinol 100 Mg Tablet 100 Mg Oral Daily 30 Tab Amitriptyline Hcl 25 Mg Tablet 25 Mg Oral Bedtime 30 Tab Balsam Felipe/[place] Oil (Venelex Ointment) 60 Gm Oint...g. 0 Gm Topical Daily 01/20/18 Budesonide (Budesonide Ec) 3 Mg Capdr...er 3 Mg Inhalation Daily 30 Cap Calcium Carbonate 500 Mg Tab 500 Mg Oral Daily 01/20/18 Cholestyramine (Cholestyramine Light Packet) 4 Gm Pack 4 Gm Oral Twice A Day as needed for Diarrhea 01/20/18 Dicyclomine Hcl 20 Mg Tablet 20 Mg Oral Four Times Daily Furosemide (Lasix) 40 Mg Tablet 40 Mg Oral Daily 30 Tab Guaifenesin (Mucinex) 600 Mg Tablet.er 600 Mg Oral Every 6 Hours 01/20/18 Insulin Regular, Human (Humulin R) 100 Unit/1 Ml Vial 0 Unit Sub-Q Every 6 Hours 01/20/18 Ipratropium [place] 0.2 Mg/1 Ml Solution 2.5 Ml Nebullizer Rt Q6h 01/20/18 Ipratropium/Albuterol Sulfate (Combivent Respimat Inhal [place]) 4 Gm Aer.w.adap 4 Gm Inhalation Every 6 Hours While Awake Levalbuterol Hcl (Xopenex) 0.63 Mg/3 Ml Vial.neb 0.63 Mg Inhalation Rt Q6h as needed for Shorntess Of Breath 01/20/18 Levalbuterol Hcl (Xopenex) 0.63 Mg/3 Ml Vial.neb 0.63 Mg Inhalation Rt Q4h 01/20/18 Levothyroxine Sodium 50 Mcg Tablet 150 Mcg Oral Daily 30 Tab Magnesium Oxide 400 Mg Tablet 400 Mg Oral Twice A Day 30 Days 01/20 Metformin Hcl 500 Mg Tablet 1,000 Mg Oral Twice A Day 60 Tab Metoprolol Succinate (Toprol Xl) 25 Mg Tab.er.24h 12.5 Mg Oral Daily 30 Days 01/20/18 Neomy Sulf/Bacitrac Zn/Poly (Triple Antibiotic Ointment) 28 Gm Oint...g. 0 Gm Topically Three Times A Day 30 Days 01/20/18 Pantoprazole Sod (Protonix) 40 Mg/Ml Susp 40 Mg Oral Daily 30 Days 01/20/18 Potassium Chloride 10 Meq Tab.er.prt 10 Meq Oral Twice A Day Prednisone 20 Mg Tab 20 Mg Oral Daily Saline 0.65% Gregorio Soln 1 [place] Soln 0 [place] Nasal Every 4 Hours While Awake 30 Days 01/20/18 Simethicone 80 Mg Chew 80 Mg Oral After Meals And At Bedtime as needed for Gas 30 Days 01/20/18 Sitagliptin Phosphate (Januvia) 100 Mg Tablet 100 Mg Oral Daily 30 Tab Social History Social History Problem Response Recorded Date/Time Onset Date Status Hx Psychiatric Problems No 01/06/2018 11:53pm Not Applicable Not Applicable Hx Eating Disorder No 01/06/2018 11:53pm Not Applicable Not Applicable Hx Substance Use Disorder No 01/06/2018 11:53pm Not Applicable Not Applicable Hx Depression No 01/06/2018 11:53pm Not Applicable Not Applicable Hx Alcohol Use No 01/06/2018 11:53pm Not Applicable Not Applicable Hx Substance Use Treatment No 01/06/2018 11:53pm Not Applicable Not Applicable Hx Physical Abuse No 01/06/2018 11:53pm Not Applicable Not Applicable Smoking Status Start Date Stop Date Never Smoker Hospital Discharge Instructions No hospital discharge instruction information available. Plan of Care Discharge Date 01/20/18 11:53pm Disposition TRANSFER LONG TERM Instructions/Education Provided Urinary Tract Infection - Women Prescriptions See Medication Section Additional Instructions/Education Continue Vital AF 50cc/hr via PEG. AAT. F/U with WIL[facility] Siddiqui & Dr. Stein at [facility]. Post transfer to SNF please administer Potassium Chloride 40mEq IV once. Functional Status Query Response Date Recorded FUNCTIONAL STATUS . January 17, 2018 1:18pm Assistive Devices None January 07, 2018 12:08am Ambulation Ability Standby Assistance January 07, 2018 12:08am Toileting Ability Total Assistance January 19, 2018 6:06pm Allergies, Adverse Reactions, Alerts Allergen Type Severity Reaction Status Last Updated Penicillin Allergy Unknown Active 01/06/18 Titanium Allergy Unknown Active 01/06/18 Heparin Allergy Unknown Active 01/06/18 Immunizations No immunization information available. Vital Signs Acute Vital Signs Vital Response Date/Time Temperature (Fahrenheit) 99.4 degrees F (97.6 - 99.5) 01/20/2018 8:00pm Pulse Pulse Rate (adult) 87 bpm (60 - 90) 01/20/2018 8:00pm Respiratory Rate 19 bpm (12 - 24) 01/20/2018 8:00pm Blood Pressure 109/63 mm Hg 01/20/2018 8:00pm Height 5 ft 6 in 01/06/2018 5:08pm Weight 271 lb 01/12/2018 12:00am Body Mass Index 43.7 kg/m^2 01/12/2018 12:00am Results Laboratory Results Test Name Result Units Flags Reference Collection Date/Time Result Date/ Time Comments White Blood Count 12.66 x10e3/uL H 4.8-10.8 01/20/2018 6:45am 2017 7:20am Red Blood Count 3.70 x10e6/uL 3.6-5.1 01/20/2018 6:45am 01/20/2018 7: 20am Hemoglobin 10.1 g/dL L 12.0-16.0 01/20/2018 6:45am 01/20/2018 7:20am Hematocrit 31.7 % L 34.2-44.1 01/20/2018 6:45am 01/20/2018 7:20am Mean Corpuscular Volume 85.7 fL 81-99 01/20/2018 6:45am 01/20/2018 7: 20am Mean Corpuscular Hemoglobin 27.3 pg L 28-32 01/20/2018 6:45am 2017 7:20am Mean Corpuscular Hemoglobin Concent 31.9 g/dL 31-35 01/20/2018 6:45am 01/20/2018 7:20am Red Cell Distribution Width 15.9 % H 11.7-14.4 01/20/2018 6:45am 2017 7:20am Platelet Count 82 x10e3/uL L 140-360 01/20/2018 6:45am 01/20/2018 7: 20am Neutrophils (%) (Auto) 79.3 % 38.7-80.0 01/20/2018 6:4501/20/2018 7: 20am Lymphocytes (%) (Auto) 8.1 % L 18.0-39.1 01/20/2018 6:45am 01/20/2018 7: 20am Monocytes (%) (Auto) 9.2 % 4.4-11.3 01/20/2018 6:4501/20/2018 7: 20am Eosinophils (%) (Auto) 1.4 % 0.0-6.0 01/20/2018 6:4501/20/2018 7: 20am Basophils (%) (Auto) 0.3 % 0.0-1.0 01/20/2018 6:4501/20/2018 7:20am IM GRANULOCYTES % 1.7 % H 0.0-1.0 01/20/2018 6:4501/20/2018 7:20am Neutrophils # (Auto) 10.0 H 2.1-6.9 01/20/2018 6:4501/20/2018 7: 20am Lymphocytes # (Auto) 1.0 1.0-3.2 01/20/2018 6:4501/20/2018 7:20am Monocytes # (Auto) 1.2 H 0.2-0.8 01/20/2018 6:01/20/2018 7:20am Eosinophils # (Auto) 0.2 0.0-0.4 01/20/2018 6:4501/20/2018 7:20am Basophils # (Auto) 0.0 0.0-0.1 01/20/2018 6:4501/20/2018 7:20am Absolute Immature Granulocyte (auto 0.21 x10e3/uL H 0-0.1 01/20/2018 6: 01/20/2018 7:20am Differential Total Cells Counted 100 01/20/2018 6:4501/20/2018 8 :34am Neutrophils % (Manual) 87 % H 40-74 01/20/2018 6:4501/20/2018 8:34am Band Neutrophils % 1 % 01/20/2018 6:4501/20/2018 8:34am Lymphocytes % (Manual) 9 % L 19-48 01/20/2018 6:45am 01/20/2018 8:34am Monocytes % (Manual) 1 % L 3.4-9.0 01/20/2018 6:45am 01/20/2018 8:34am Eosinophils % (Manual) 1 % 0-7 01/19/2018 6:30am 01/19/2018 8:56am Metamyelocytes % 1 % H 0-0 01/20/2018 6:45am 01/20/2018 8:34am Myelocytes % 4 % H 0-0 01/18/2018 5:47am 01/18/2018 8:30am Hypersegmented Neutrophils FEW 01/20/2018 6:45am 01/20/2018 8:34am Reactive Lymphocytes 1 01/20/2018 6:45am 01/20/2018 8:34am Smudge Cells FEW 01/16/2018 6:38am 01/16/2018 11:07am Nucleated Red Blood Cells 4 01/06/2018 5:15pm 01/06/2018 7:20pm Platelet Estimate SLIGHTLY DECREASED 01/20/2018 6:45am 01/20/2018 8 :34am Platelet Morphology Comment FEW LARGE 01/20/2018 6:45am 01/20/2018 8:34am Hypochromasia SLIGHT 01/19/2018 6:30am 01/19/2018 8:56am Poikilocytosis SLIGHT 01/18/2018 5:47am 01/18/2018 8:30am Anisocytosis SLIGHT 01/19/2018 6:30am 01/19/2018 8:56am Target Cells FEW 01/06/2018 5:15pm 01/06/2018 7:20pm Stomatocytes SLIGHT 01/09/2018 5:55am 01/09/2018 7:48am Randle-Silt Bodies FEW 01/09/2018 5:55am 01/09/2018 7:48am Elliptocytes SLIGHT 01/09/2018 5:55am 01/09/2018 7:48am Red Cell Morphology Comment NORMAL 01/20/2018 6:45am 01/20/2018 8: 34am Prothrombin Time 14.5 seconds 11.9-14.5 01/06/2018 5:15pm 01/06/2018 5: 54pm Prothromb Time International Ratio 1.22 01/06/2018 5:15pm 2017 5:54pm Oral Anticoagulant Therapy INR Values: 1. Low Intensity Therapy 1.5 - 2.0 2. Moderate Intensity Therapy 2.0 - 3.0 3. High Intensity Therapy(1) 2.5 - 3.5 4. High Intensity Therapy(2) 3.0 - 4.0 5. Panic Value INR > 5.0 Activated Partial Thromboplast Time 31.4 seconds 23.8-35.5 01/06/2018 5: 15pm 01/06/2018 5:54pm D-Dimer Quantitative (PE/DVT) 3.57 ug/mLFEU H 0.00-0.45 01/06/2018 5: 15pm 01/06/2018 5:56pm As with all in vitro diagnostic tests, the test results should be interpreted by the physician in conjunction with clinical findings and other test results. Test results are reported in NEW D-dimer units(ug/mLFEU). Urine Color YELLOW YELLOW 01/06/2018 5:30pm 01/06/2018 5:56pm Urine Clarity SL CLOUDY CLEAR 01/06/2018 5:30pm 01/06/2018 5:56pm Urine Specific Paron 1.015 1.010-1.025 01/06/2018 5:30pm 2017 5:56pm Urine pH 5 5 - 7 01/06/2018 5:30pm 01/06/2018 5:56pm Urine Leukocyte Esterase 1+ H NEGATIVE 01/06/2018 5:30pm 01/06/2018 5: 56pm Urine Nitrite POSITIVE H NEGATIVE 01/06/2018 5:30pm 01/06/2018 5:56pm Urine Protein NEGATIVE NEGATIVE 01/06/2018 5:30pm 01/06/2018 5:56pm Urine Glucose (UA) NEGATIVE NEGATIVE 01/06/2018 5:30pm 01/06/2018 5: 56pm Urine Ketones NEGATIVE NEGATIVE 01/06/2018 5:30pm 01/06/2018 5:56pm Urine Urobilinogen 0.2 mg/dL 0.2 - 1 01/06/2018 5:30pm 01/06/2018 5: 56pm Urine Bilirubin NEGATIVE NEGATIVE 01/06/2018 5:30pm 01/06/2018 5: 56pm Urine Blood 2+ H NEGATIVE 01/06/2018 5:30pm 01/06/2018 5:56pm Urine WBC 0-5 /HPF 0-5 01/06/2018 5:30pm 01/06/2018 6:09pm Urine RBC 11-20 /HPF H 0-5 01/06/2018 5:30pm 01/06/2018 6:09pm Urine Bacteria MANY /HPF H NONE 01/06/2018 5:30pm 01/06/2018 6:09pm Urine Epithelial Cells MODERATE /LPF NONE 01/06/2018 5:30pm 01/06/2018 6:09pm Urine Amorphous Sediment MANY H FEW 01/06/2018 5:30pm 01/06/2018 6: 09pm Sodium Level 136 mmol/L 136-145 01/20/2018 6:45am 01/20/2018 7:17am Potassium Level 3.1 mmol/L L 3.5-5.1 01/20/2018 6:45am 01/20/2018 7: 17am Chloride Level 95 mmol/L L 98-107 01/20/2018 6:45am 01/20/2018 7:17am Carbon Dioxide Level 32 mmol/L H 22-29 01/20/2018 6:45am 01/20/2018 7: 17am Anion Gap 12.1 mmol/L 8-16 01/20/2018 6:45am 01/20/2018 7:17am Blood Urea Nitrogen 11 mg/dL 7-01/20/2018 6:45am 01/20/2018 7:17am Creatinine 0.59 mg/dL 0.57-1.11 01/20/2018 6:45am 01/20/2018 7:17am BUN/Creatinine Ratio 19 6-01/20/2018 6:45am 01/20/2018 7:17am Estimat Glomerular Filtration Rate > 60 ML/MIN 60- 01/20/2018 6:45am 7:17am Ranges were taken from the National Kidney Disease Education Program and the National Kid[employer] Foundation literature. Reference ranges: 60 or greater: Normal 16-59 (for 3 consecutive months): Chronic kidney disease 15 or less: Kidney failure Glucose Level 140 mg/dL H 74-118 01/20/2018 6:45am 01/20/2018 7:17am Calcium Level 8.3 mg/dL L 8.4-10.2 01/20/2018 6:45am 01/20/2018 7:17am Bedside Glucose 141 mg/dL H 70-120 01/20/2018 11:16am 01/20/2018 12: 02pm Meter ID: [id number] Hemoglobin A1c Percent 6.0 % 4.0-7.0 01/08/2018 6:36am 01/08/2018 7: 21am Lactic Acid Level 11.1 MG/DL 4.5-19.8 01/06/2018 5:55pm 01/06/2018 6: 18pm Magnesium Level 1.4 MG/DL 1.3-2.1 01/20/2018 6:45am 01/20/2018 7:17am Total Bilirubin 0.6 mg/dL 0.2-1.2 01/07/2018 5:55am 01/07/2018 7:30am Aspartate Amino Transf (AST/SGOT) 13 IU/L 5-34 01/07/2018 5:55am 2017 7:30am Alanine Aminotransferase (ALT/SGPT) 10 IU/L 0-55 01/07/2018 5:55am 7:30am Total Protein 5.4 g/dL L 6.5-8.1 01/07/2018 5:55am 01/07/2018 7:30am Albumin 2.3 g/dL L 3.5-5.0 01/07/2018 5:55am 01/07/2018 7:30am Globulin 3.1 g/dL 2.3-3.5 01/07/2018 5:55am 01/07/2018 7:30am Albumin/Globulin Ratio 0.7 L 0.8-2.0 01/07/2018 5:55am 01/07/2018 7: 30am Alkaline Phosphatase 100 IU/L 40-150 01/07/2018 5:55am 01/07/2018 7: 30am Triglycerides Level 183 MG/DL H 0-149 01/12/2018 5:30am 01/12/2018 8: 11am Cholesterol Level 129 MD/DL 0-199 01/12/2018 5:30am 01/12/2018 8:11am Less than 200 mg/dL Low Risk 201 - 239 mg/dL Borderline Risk 240 mg/dl and greater High Risk LDL Cholesterol 51 MG/DL L 60-130 01/12/2018 5:30am 01/12/2018 8:11am HDL Cholesterol 41 MG/DL 40-60 01/12/2018 5:30am 01/12/2018 8:11am Cholesterol/HDL Ratio 3.1 3.0-3.6 01/12/2018 5:30am 01/12/2018 8: 11am B-Type Natriuretic Peptide 61.5 pg/mL 0-100 01/06/2018 5:15pm 2017 6:11pm Creatine Kinase 17 IU/L L 29-168 01/06/2018 5:15pm 01/06/2018 6:01pm Creatine Kinase MB 0.70 ng/mL 0-5.0 01/06/2018 5:15pm 01/06/2018 6: 09pm Troponin I 0.010 ng/mL 0-0.300 01/06/2018 5:15pm 01/06/2018 6:09pm Free Thyroxine 0.94 ng/dL 0.9-1.8 01/08/2018 6:36am 01/08/2018 8:07am Thyroid Stimulating Hormone (TSH) 1.447 uIU/mL 0.350-4.940 01/08/2018 6: 36am 01/08/2018 8:07am Arterial Blood pH 7.46 H 7.31-7.41 01/12/2018 11:40am 01/12/2018 11: 58am Arterial Blood Partial Pressure CO2 57 mmHg H 41-51 01/12/2018 11:40am 01/12/2018 11:58am Arterial Blood Partial Pressure O2 116 mmHg H 80-105 01/12/2018 11:40am 01/12/2018 11:58am Arterial Blood HCO3 40 mmol/L H 23-28 01/12/2018 11:40am 01/12/2018 11: 58am Arterial Blood Base Excess 16.0 mmol/L H -2 - 3 01/12/2018 11:40am 01/12 11:58am Arterial Blood Oxygen Saturation 99.0 % H 95-98 01/12/2018 11:40am 01/12 11:58am FiO2 50 % 01/12/2018 11:40am 01/12/2018 11:58am PRVC 15 370 50% +7 RIGHT RADIAL Clostridium Difficile Toxin A & B POSITIVE H NEGATIVE 01/12/2018 6: 00pm 01/13/2018 10:01am Results called to Sofy De Leon RN at 0953 on 01/13 by Nitza Titus. RB OK. Results called to HOLLY KEENAN in infection control at 0953 on 01/13/18 by Nizta Titus. Testing on stool aspirate specimens is outside inspector technician claims since specimen type not validated on this assay. Microbiology Results Procedure Source Organism/Result Collection Date/Time Result Date/Time Result Status Blood Culture Blood NO GROWTH AFTER 5 DAYS, FINAL REPORT 01/06/2018 5:15pm 01/11/2018 6:36pm Final Urine Culture Urine,Clean Catch ESCHERICHIA COLI-ESBL 01/06/2018 5:30pm 8:28am Final Sputum Culture Sputum, Expectorated Sputum ENTEROBACTER AEROGENES 2017 5:30am 01/10/2018 9:26am Final Sputum Culture Sputum, Induced ENTEROBACTER AEROGENES 01/11/2018 11:45am 12:38pm Final STAPHYLOCOCCUS AUREUS-MRSA 01/11/2018 11:45am 01/13/2018 12:38pm Final Procedures Procedure Status Date Provider(s) Tracheostomy Completed 01/13/18 AKILAH GRACIA Computed tomography of chest with contrast Active 01/06/18 JENN MILLER MD Encounters Encounter Location Arrival/Admit Date Discharge/Depart Date Attending Provider Discharged Inpatient [facility] 01/06/18 6:52pm 01/20/18 11:53pm ILAN STEIN MD Registered [facility]erred [facility] 10/25/17 3:00am ILAN STEIN MD Registered [facility]erred [facility] 10/14/17 2:59am JACOB GONZALEZ MD Registered [facility]erred [facility] 10/10/17 2:58am ILAN STEIN MD
[2018-02-10] MEDS ORDERED: ALBUTEROL/IPRATROPIUM 3 ML NEB NEB ONE (18:30)
[2018-02-10 18:50] LABS: BASOPHILS # (AUTO) 0.1 (0.0-0.1); BASOPHILS % 0.5 % (0.0-1.0); EOSINOPHILS # (AUTO) 0.2 (0.0-0.4); EOSINOPHILS % 1.2 % (0.0-6.0); HEMATOCRIT 36.1 % (34.2-44.1); HEMOGLOBIN 11.5 g/dL (12.0-16.0); LYMPHOCYTES # (AUTO) 1.2 (1.0-3.2); MEAN CORPUSCULAR HEMOGLOBIN 27.6 pg (28-32); MEAN CORPUSCULAR HGB CONC 31.9 g/dL (31-35); MEAN CORPUSCULAR VOLUME 86.8 fL (81-99); MONOCYTES # (AUTO) 1.3 (0.2-0.8); MONOCYTES % 7.4 % (4.4-11.3); NEUTROPHILS # (AUTO) 14.3 (2.1-6.9); NEUTROPHILS % 81.1 % (38.7-80.0); PLATELET COUNT 152 x10e3/uL (140-360); RED BLOOD COUNT 4.16 x10e6/uL (3.6-5.1); RED CELL DISTRIBUTION WIDTH 15.9 % (11.7-14.4)
[2018-02-10 18:55] LABS: INR 1.1; PROTHROMBIN TIME 13.4 seconds (11.9-14.5)
[2018-02-10 19:01] LABS: PARTIAL THROMBOPLASTIN TIME 29.9 seconds (23.8-35.5)
[2018-02-10 19:04] LABS: ALANINE AMINOTRANSFERASE 9 IU/L (0-55); ALBUMIN 2.6 g/dL (3.5-5.0); ALBUMIN/GLOBULIN RATIO 0.7 (0.8-2.0); ALKALINE PHOSPHATASE 85 IU/L (40-150); ANION GAP 16.4 mmol/L (8-16); BLOOD UREA NITROGEN 16 mg/dL (7-26); BUN/CREATININE RATIO 22 (6-25); CARBON DIOXIDE 25 mmol/L (22-29); CHLORIDE 94 mmol/L (98-107); CREATINE KINASE 11 IU/L (29-168); CREATININE, SERUM 0.74 mg/dL (0.57-1.11); EST GLOMERULAR FILTRATION RATE > 60 ML/MIN (60-); GLUCOSE 189 mg/dL (74-118); POTASSIUM 3.4 mmol/L (3.5-5.1); SODIUM 132 mmol/L (136-145)
[2018-02-10 19:13] LABS: B-TYPE NATRIURETIC PEPTIDE2 117.9 pg/mL (0-100)
[2018-02-10] MEDS ORDERED: KCL 20MEQ/.9 SOD CHL 1,000 ML IV ONE ×2 (19:30→20:00)
--- NOTE | 2018-02-10 19:40 | Diagnostic Imaging Report ---
EXAMINATION: CHEST SINGLE (PORTABLE) 02/10/2018 6:20 PM COMPARISON: 01/14/2018 INDICATION: Shortness of breath DISCUSSION: LINES: Right upper extremity PICC line. The tip is obscured by overlying leads. Tracheostomy tube is present. LUNGS: Lung volumes are low. Streaky opacities in the lingula and left lower lobe likely represent atelectasis. PLEURA: No pleural effusion or pneumothorax. HEART AND MEDIASTINUM: The cardiomediastinal silhouette is unchanged. BONES AND SOFT TISSUES: No acute osseous lesion. The soft tissues are normal. IMPRESSION: Low lung volumes with basilar atelectasis. Pedro Malone MD Signed by: Dr. Pedro Malone M.D. on 02/10/2018 7:36 PM
[2018-02-10 20:03] LABS: HYPOCHROMASIA SLIGHT; LYMPHOCYTES % (MANUAL) 8 % (19-48); MONOCYTES % (MANUAL) 9 % (3.4-9.0); NEUTROPHILS % (MANUAL) 83 % (40-74); PLATELET ESTIMATE ADEQUATE; PLATELET MORPHOLOGY COMMENT NORMAL; RBC MORPHOLOGY COMMENT NORMAL
[2018-02-11 00:24] VITALS: BP 110/65
== END 2018-02-11 00:37 ==
LOC: ER 18:18
DX: R06.09 Other forms of dyspnea (principal); E87.6 Hypokalemia; E86.0 Dehydration; I10 Essential (primary) hypertension; E11.9 Type 2 diabetes mellitus without complications; I51.9 Heart disease, unspecified
CPT/HCPCS: 36415; 36600; 71045; 80053; 82550; 82553; 82805; 83605; 83880; 84484; 85025; 85610; 85730; 87040; 87071; 87186; 87205; 93005; 94640; 99284

== ENCOUNTER 2018-02-24 09:43 | Inpatient (IN) | payer MEDICARE, OTHER ==
[~2018-02-24] VITALS: Ht 167.6 cm; Wt 104.1 kg
[2018-02-24] VITALS (8 sets, daily range): BP systolic 119–136; BP diastolic 69–88
--- OUTSIDE RECORDS SUMMARY | 2018-02-24 09:46 | XMS REPORT | Continuity of Care Document ---
Author Author [facility] Organization [facility] Address [address] [place] [address] Phone Unavailable Care Team Providers Care Financial Manager Name Role Phone NO, PCP PCP Unavailable Insurance Providers Guarantor Janis Cummings Address [address] [place] [id number] Email NONE [facility] Policy Number [id number] Subscriber's Name Janis Cummings Relationship 18 Self / Same As Patient Effective Date 17 [facility] Policy Number [id number] Subscriber's Name Janis Cummings Relationship 18 Self / Same As Patient Effective Date 17 Advance Directives Directive Response Recorded Date/Time Does the patient have an advance directive? No 01/06/18 11:53pm If yes, is advance directive on file with [facility]? No 01/06/18 11:53pm If not on file with [facility] will patient provide a copy? Yes 01/06/18 11:53pm Problems No problem information available. Medications Current Home Medications Medication Dose Units Route Directions Days Qty Instructions Start Date Acetaminophen 325 Mg Tablet 650 Mg Oral Every 4 Hours as needed for Pain And Temperature 30 Days 01/20/18 Allopurinol 100 Mg Tablet 100 Mg Oral Daily 30 Tab Amitriptyline Hcl 25 Mg Tablet 25 Mg Oral Bedtime 30 Tab Balsam [place] Oil (Venelex Ointment) 60 Gm Oint...g. 0 Gm Topical Daily 30 Days 01/20/18 Budesonide (Budesonide Ec) 3 Mg Capdr...er 3 Mg Inhalation Daily 30 Cap Calcium Carbonate 500 Mg Tab 500 Mg Oral Daily 30 01/20/18 Cholestyramine (Cholestyramine Light Packet) 4 Gm [...] Unit Sub-Q Every 6 Hours 01/20/18 Ipratropium [place] 0.2 Mg/1 Ml Solution 2.5 Ml Nebullizer Rt Q6h 01/20/18 Ipratropium/Albuterol Sulfate (Combivent Respimat Inhal Nora) 4 Gm Aer.w.adap 4 Gm Inhalation Every [...] Tablet 400 Mg Oral Twice A Day 01/20 Metformin Hcl 500 Mg Tablet 1,000 Mg Oral Twice A Day 60 Tab Metoprolol Succinate (Toprol Xl) 25 Mg Tab.er.24h 12.5 Mg Oral Daily 01/20/18 Neomy Sulf/Bacitrac Zn/Poly (Triple Antibiotic Ointment) 28 Gm Oint...g. 0 Gm Topically Three Times A Day 01/20/18 Pantoprazole Sod (Protonix) 40 Mg/Ml Susp 40 Mg Oral Daily 01/20/18 Potassium Chloride 10 Meq Tab.er.prt 10 Meq Oral Twice A Day Prednisone 20 Mg Tab 20 Mg Oral Daily Saline 0.65% Gregorio Soln 1 Nora Soln 0 Nora Nasal Every 4 Hours While Awake 01/20/18 Simethicone 80 Mg Chew 80 Mg Oral After Meals And At Bedtime as needed for Gas 01/20/18 Sitagliptin Phosphate (Januvia) 100 Mg Tablet [...] Applicable Smoking Status Start Date Stop Date Unknown if ever smoked Hospital Discharge Instructions No hospital discharge instruction information available. Plan of Care Discharge Date 02/11/18 12:37am Disposition DIS TO SENIOR CARE BED Condition at Discharge Stable Instructions/Education Provided Dehydration - Adult Hypokalemia Prescriptions See Medication Section Additional Instructions/Education REST; CONTINUE HOME MEDICATIONS PRESCRIBED; FOLLOW UP WITH YOUR PCP; Functional Status No functional status information available. Allergies, Adverse Reactions, Alerts Allergen Type Severity Reaction Status Last Updated Penicillin Allergy Unknown Active 01/06/18 Titanium Allergy Unknown Active 01/06/18 Heparin Allergy Unknown Active 01/06/18 Immunizations No immunization information available. Vital Signs Acute Vital Signs Vital Response Date/Time Temperature (Fahrenheit) 99.4 degrees F (97.6 - 99.5) 01/20/2018 8:00pm Pulse Pulse Rate (adult) 90 bpm (60 - 90) 02/11/2018 12:24am Respiratory Rate 16 bpm (12 - 24) 02/11/2018 12:24am Blood Pressure 110/65 mm Hg 02/11/2018 12:24am Height 5 ft 6 in 02/10/2018 6:25pm Weight 271 lb 02/10/2018 6:25pm Body Mass Index 43.7 kg/m^2 02/10/2018 6:25pm Results Laboratory Results Test Name Result Units Flags Reference Collection Date/Time Result Date/ Time Comments Band Neutrophils % 1 % 01/20/2018 6:45am 01/20/2018 8:34am Eosinophils % (Manual) [...] Blood Cells 4 01/06/2018 5:15pm 01/06/2018 7:20pm Poikilocytosis SLIGHT 01/18/2018 5:47am 01/18/2018 8:30am Anisocytosis SLIGHT 01/19/2018 6:30am 01/19/2018 8:56am Target Cells FEW 01/06/2018 5:15pm 01/06/2018 7:20pm Stomatocytes SLIGHT 01/09/2018 5:55am 01/09/2018 7:48am Randle-Stanford Bodies FEW 01/09/2018 5:55am 01/09/2018 7:48am Elliptocytes SLIGHT 01/09/2018 5:55am 01/09/2018 7:48am D-Dimer Quantitative (PE/DVT) 3.57 ug/mLFEU H 0.00-0.45 [...] CLEAR 01/06/2018 5:30pm 01/06/2018 5:56pm Urine Specific [place] 1.015 1.010-1.025 01/06/2018 5:30pm 2017 5:56pm Urine [...] H FEW 01/06/2018 5:30pm 01/06/2018 6: 09pm Bedside Glucose 141 mg/dL H 70-120 01/20/2018 11:16am 01/20/2018 12: 02pm Meter ID: [id number] Hemoglobin A1c Percent 6.0 % 4.0-7.0 01/08/2018 6:36am 01/08/2018 7: 21am Magnesium Level 1.4 MG/DL 1.3-2.1 01/20/2018 6:45am 01/20/2018 7:17am Triglycerides Level 183 MG/DL H 0-149 01/12/2018 [...] 3.1 3.0-3.6 01/12/2018 5:30am 01/12/2018 8: 11am Free Thyroxine 0.94 ng/dL 0.9-1.8 01/08/2018 6:36am [...] Leon RN at 0953 on 01/13 by [employer]. RB OK. Results called to HOLLY KEENAN in infection control at 0953 on 01/13/18 by [employer]. Testing on stool aspirate specimens is outside boilermaker apprentice claims since specimen type not validated on this assay. White Blood Count 17.67 x10e3/uL H 4.8-10.8 02/10/2018 6:20pm 2017 6:51pm Red Blood Count 4.16 x10e6/uL 3.6-5.1 02/10/2018 6:20pm 02/10/2018 6: 51pm Hemoglobin 11.5 g/dL L 12.0-16.0 02/10/2018 6:20pm 02/10/2018 6:51pm Hematocrit 36.1 % 34.2-44.1 02/10/2018 6:20pm 02/10/2018 6:51pm Mean Corpuscular Volume 86.8 fL 81-99 02/10/2018 6:02/10/2018 6: 51pm Mean Corpuscular Hemoglobin 27.6 pg L 28-32 02/10/2018 6:20pm 2017 6:51pm Mean Corpuscular Hemoglobin Concent 31.9 g/dL 31-35 02/10/2018 6:pm 02/10/2018 6:51pm Red Cell Distribution Width 15.9 % H 11.7-14.4 02/10/2018 6:2017 6:51pm Platelet Count 152 x10e3/uL 140-360 02/10/2018 6:02/10/2018 6: 51pm Neutrophils (%) (Auto) 81.1 % H 38.7-80.0 02/10/2018 6:02/10/2018 6 :51pm Lymphocytes (%) (Auto) 7.0 % L 18.0-39.1 02/10/2018 6:pm 02/10/2018 6: 51pm Monocytes (%) (Auto) 7.4 % 4.4-11.3 02/10/2018 6:02/10/2018 6: 51pm Eosinophils (%) (Auto) 1.2 % 0.0-6.0 02/10/2018 6:02/10/2018 6: 51pm Basophils (%) (Auto) 0.5 % 0.0-1.0 02/10/2018 6:02/10/2018 6:51pm IM GRANULOCYTES % 2.8 % H 0.0-1.0 02/10/2018 6:20pm 02/10/2018 6:51pm Neutrophils # (Auto) 14.3 H 2.1-6.9 02/10/2018 6:02/10/2018 6: 51pm Lymphocytes # (Auto) 1.2 1.0-3.2 02/10/2018 6:20pm 02/10/2018 6:51pm Monocytes # (Auto) 1.3 H 0.2-0.8 02/10/2018 6:20pm 02/10/2018 6:51pm Eosinophils # (Auto) 0.2 0.0-0.4 02/10/2018 6:20pm 02/10/2018 6:51pm Basophils # (Auto) 0.1 0.0-0.1 02/10/2018 6:20pm 02/10/2018 6:51pm Absolute Immature Granulocyte (auto 0.49 x10e3/uL H 0-0.1 02/10/2018 6: 20pm 02/10/2018 6:51pm Differential Total Cells Counted 100 02/10/2018 6:20pm 02/10/2018 8 :03pm Neutrophils % (Manual) 83 % H 40-74 02/10/2018 6:20pm 02/10/2018 8:03pm Lymphocytes % (Manual) 8 % L 19-48 02/10/2018 6:20pm 02/10/2018 8:03pm Monocytes % (Manual) 9 % 3.4-9.0 02/10/2018 6:20pm 02/10/2018 8:03pm Platelet Estimate ADEQUATE 02/10/2018 6:20pm 02/10/2018 8:03pm Platelet Morphology Comment NORMAL 02/10/2018 6:20pm 02/10/2018 8: 03pm Hypochromasia SLIGHT 02/10/2018 6:20pm 02/10/2018 8:03pm Red Cell Morphology Comment NORMAL 02/10/2018 6:20pm 02/10/2018 8: 03pm Prothrombin Time 13.4 seconds 11.9-14.5 02/10/2018 6:20pm 02/10/2018 7: 01pm Prothromb Time International Ratio 1.10 02/10/2018 6:20pm 2017 7:01pm Oral Anticoagulant Therapy INR Values: 1. Low Intensity Therapy 1.5 - 2.0 2. Moderate Intensity Therapy 2.0 - 3.0 3. High Intensity Therapy(1) 2.5 - 3.5 4. High Intensity Therapy(2) 3.0 - 4.0 5. Panic Value INR > 5.0 Activated Partial Thromboplast Time 29.9 seconds 23.8-35.5 02/10/2018 6: 02/10/2018 7:01pm Sodium Level 132 mmol/L L 136-145 02/10/2018 6:02/10/2018 7:04pm Potassium Level 3.4 mmol/L L 3.5-5.1 02/10/2018 6:02/10/2018 7: 04pm Chloride Level 94 mmol/L L 98-107 02/10/2018 6:02/10/2018 7:04pm Carbon Dioxide Level 25 mmol/L 22-02/10/2018 6:02/10/2018 7: 04pm Anion Gap 16.4 mmol/L H 8-02/10/2018 6:02/10/2018 7:04pm Blood Urea Nitrogen 16 mg/dL 04-1302/10/2018 6:02/10/2018 7:04pm Creatinine 0.74 mg/dL 0.57-1.11 02/10/2018 6:02/10/2018 7:04pm BUN/Creatinine Ratio 22 03-1302/10/2018 6:02/10/2018 7:04pm Estimat Glomerular Filtration Rate > 60 ML/MIN 60- 02/10/2018 6: 7:04pm Ranges were taken from the National Kidney Disease Education Program and the National Kidney Foundation literature. Reference ranges: 60 or greater: Normal 16-59 (for 3 consecutive months): Chronic kidney disease 15 or less: Kidney failure Glucose Level 189 mg/dL H 74-118 02/10/2018 6:02/10/2018 7:04pm Calcium Level 9.0 mg/dL 8.4-10.2 02/10/2018 6:02/10/2018 7:04pm Lactic Acid Level 13.3 MG/DL 4.5-19.8 02/10/2018 6:02/10/2018 6: 57pm Total Bilirubin 0.4 mg/dL 0.2-1.2 02/10/2018 6:02/10/2018 7:04pm Aspartate Amino Transf (AST/SGOT) 12 IU/L 5-34 02/10/2018 6:2017 7:04pm Alanine Aminotransferase (ALT/SGPT) 9 IU/L 0-55 02/10/2018 6:20pm 02/10 7:04pm Total Protein 6.5 g/dL 6.5-8.1 02/10/2018 6:20pm 02/10/2018 7:04pm Albumin 2.6 g/dL L 3.5-5.0 02/10/2018 6:20pm 02/10/2018 7:04pm Globulin 3.9 g/dL H 2.3-3.5 02/10/2018 6:2002/10/2018 7:04pm Albumin/Globulin Ratio 0.7 L 0.8-2.0 02/10/2018 6:20pm 02/10/2018 7: 04pm Alkaline Phosphatase 85 IU/L 40-150 02/10/2018 6:20pm 02/10/2018 7: 04pm B-Type Natriuretic Peptide 117.9 pg/mL H 0-100 02/10/2018 6:202017 7:18pm Creatine Kinase 11 IU/L L 29-168 02/10/2018 6:2002/10/2018 7:04pm Creatine Kinase MB 1.50 ng/mL 0-5.0 02/10/2018 6:20pm 02/10/2018 7: 12pm Troponin I 0.031 ng/mL 0-0.300 02/10/2018 6:20pm 02/10/2018 7:12pm Mixed Venous Blood pH 7.447 H 7.32-7.42 02/10/2018 6:32p02/10/2018 6 :56pm Mixed Venous Blood PCO2 43.8 mm Hg 40-50 02/10/2018 6:32p02/10/2018 6 :56pm Mixed Venous Blood PO2 37 mm Hg L 38-42 02/10/2018 6:32pm 02/10/2018 6: 56pm Mixed Venous Blood HCO3 30.2 mEq/L H 22-26 02/10/2018 6:32pm 02/10/2018 6:56pm Mixed Venous Blood Base Excess 6 H -5-3 02/10/2018 6:32pm 02/10/2018 6 :56pm Mixed Venous Blood O2 Saturation 72 % 70-75 02/10/2018 6:32pm 2017 6:56pm Reason for ABG: PT ARRIVED BY AMBULANCE C/O SOB TRACH COLLAR SpO2 99% at 10 L/min on 40%. Microbiology Results Procedure Source Organism/Result Collection Date/Time [...] 12:38pm Final Procedures Procedure Status Date Provider(s) BYPASS TRACHEA TO CUTANEOUS WITH TRACH DEV, OPEN APPROACH Completed 01/13/18 AKILAH GRACIA INSPECTION OF LARYNX, ENDO Completed 01/13/18 AKILAH GRACIA RESPIRATORY VENTILATION, 24-96 CONSECUTIVE HOURS Completed 01/11/18 MAURO MORGAN MD INSERTION OF ENDOTRACHEAL AIRWAY INTO TRACHEA, VIA OPENING Completed ALFONSO ROBB MD INSPECTION OF TRACHEOBRONCHIAL TREE, ENDO Completed 01/11/18 MAURO MORGAN MD INSERTION OF INFUSION DEV INTO SUP VENA CAVA, PERC APPROACH Completed ILAN SALCEDO MD Computed tomography of chest with contrast Active 01/06/18 JENN MILLER MD Encounters Encounter Location Arrival/Admit Date Discharge/Depart Date Attending Provider Departed Emergency Room [facility] 02/10/18 6:18pm 12:37am NATHANIEL SANTACRUZ DO Discharged Inpatient [facility] 01/06/18 6:52pm 01/20/18 11:53pm ILAN SALCEDO MD Registered Referred [facility] 10/25/17 3:00am ILAN SALCEDO MD Registered Referred [facility] 10/14/17 2:59am JACOB GONZALEZ MD Registered Referred [facility] 10/10/17 2:58am ILAN SALCEDO MD
[2018-02-24] MEDS ORDERED: SODIUM CHLORIDE 0.9% 500ML 500 ML IV STA (10:07)
[2018-02-24] MEDS ORDERED: POTASSIUM40 MEQ/15 PEG (10:19)
[2018-02-24] MEDS ORDERED: PEPCID20 MG PEG (10:19)
[2018-02-24 10:32] LABS: BASOPHILS % 0.1 % (0.0-1.0); EOSINOPHILS # (AUTO) 0.2 (0.0-0.4); EOSINOPHILS % 2.1 % (0.0-6.0); LYMPHOCYTES # (AUTO) 0.9 (1.0-3.2); LYMPHOCYTES % 13.2 % (18.0-39.1); MEAN CORPUSCULAR HEMOGLOBIN 28.1 pg (28-32); MEAN CORPUSCULAR HGB CONC 32.4 g/dL (31-35); MONOCYTES # (AUTO) 0.6 (0.2-0.8); NEUTROPHILS # (AUTO) 5.3 (2.1-6.9); NEUTROPHILS % 74.9 % (38.7-80.0); RED BLOOD COUNT 3.91 x10e6/uL (3.6-5.1); RED CELL DISTRIBUTION WIDTH 17.3 % (11.7-14.4)
[2018-02-24 10:35] LABS: PLATELET COUNT 43 x10e3/uL (140-360)
--- NOTE | 2018-02-24 10:37 | Diagnostic Imaging Report ---
PROCEDURE: CHEST SINGLE (PORTABLE) COMPARISON: 02/10/2018. INDICATIONS: SHORTNESS OF BREATH, TRACH FINDINGS: Right upper extremity PICC has been removed. Tracheostomy is unchanged in position when accounting for differences in patient positioning. Lung volumes remain low with linear opacity in the left lung base compatible with subsegmental atelectasis. No focal airspace consolidation, large effusion, or pneumothorax. Stable cardiomediastinal contour with tortuosity of the thoracic aorta. No overt pulmonary edema. CONCLUSION: Low lung volumes with subsegmental atelectasis in the left lung base. No consolidative pneumonia. Dictated by: Duane Whelan M.D. on 02/24/2018 at 10:40 Electronically approved by: Duane Whelan M.D. on 02/24/2018 at 10:40
[2018-02-24 10:41] LABS: INR 1.06; PARTIAL THROMBOPLASTIN TIME 26.7 seconds (23.8-35.5)
[2018-02-24] MEDS ORDERED: LORAZEPAM0.5 MG PEG (10:46)
[2018-02-24] MEDS ORDERED: PROBIOTIC & AC1 EACH PEG (10:46)
[2018-02-24] MEDS ORDERED: TYLENOL WITH C1 EACH PO (10:46)
[2018-02-24] MEDS ORDERED: FLAGYL250 MG PEG (10:46)
[2018-02-24] MEDS ORDERED: NOVOLOG SS (10:46)
[2018-02-24] MEDS ORDERED: REGLAN5 MG PEG (10:46)
[2018-02-24 10:50] LABS: ALANINE AMINOTRANSFERASE 10 IU/L (0-55); ALBUMIN 2.8 g/dL (3.5-5.0); ALBUMIN/GLOBULIN RATIO 0.9 (0.8-2.0); ALKALINE PHOSPHATASE 85 IU/L (40-150); ANION GAP 13.2 mmol/L (8-16); BLOOD UREA NITROGEN 10 mg/dL (7-26); BUN/CREATININE RATIO 15 (6-25); CALCIUM 9.7 mg/dL (8.4-10.2); CARBON DIOXIDE 25 mmol/L (22-29); CHLORIDE 99 mmol/L (98-107); CREATINE KINASE 9 IU/L (29-168); CREATININE, SERUM 0.66 mg/dL (0.57-1.11); EST GLOMERULAR FILTRATION RATE > 60 ML/MIN (60-); GLUCOSE 164 mg/dL (74-118); MAGNESIUM 1.5 MG/DL (1.3-2.1); POTASSIUM 4.2 mmol/L (3.5-5.1); SODIUM 133 mmol/L (136-145)
[2018-02-24 10:51] LABS: ABG HCO3 30 mmol/L (23-28); ABG PCO2 52 mmHg (41-51); ABG PH 7.37 (7.31-7.41); ABG PO2 102 mmHg (80-105)
[2018-02-24 11:03] LABS: B-TYPE NATRIURETIC PEPTIDE2 97.8 pg/mL (0-100)
[2018-02-24] MEDS ORDERED: ALBUTEROL SULF 0.083% NEB SOLN 3 ML NEB NEB STA (11:09)
[2018-02-24] MEDS ORDERED: ALBUTEROL SULF 0.083% NEB SOLN 3 ML NEB ONE (11:10)
[2018-02-24] MEDS ORDERED: LEVOFLOXACIN 500MG/D5W 100ML 100 ML IV ONE (11:30)
[2018-02-24 12:56] LABS: CLARITY,URINE HAZY (CLEAR); COLOR,URINE YELLOW (YELLOW); LEUKOCYTE ESTERASE ,URINE TRACE (NEGATIVE); NITRITE,URINE NEGATIVE (NEGATIVE); PROTEIN,URINE DIPSTICK NEGATIVE (NEGATIVE)
[2018-02-24 12:57] LABS: BILIRUBIN,URINE NEGATIVE (NEGATIVE); KETONES,URINE NEGATIVE (NEGATIVE); URINE UROBILINOGEN 0.2 mg/dL (0.2 - 1)
[2018-02-24 13:05] LABS: BACTERIA,URINE FEW /HPF; EPITHELIAL CELLS,URINE FEW /LPF; RBC,URINE 0-5 /HPF (0-5)
[2018-02-24] MEDS ORDERED: SODIUM CHLORIDE FLUSH 10 ML SYR INJ PRN (13:30)
[2018-02-24] MEDS: LEVOFLOXACIN 500MG/D5W 100ML IV SCH (13:55)
[2018-02-24] MEDS ORDERED: DEXTROSE 50% SYRINGE 50 ML IV PRN ×2 (14:00→19:45)
[2018-02-24] MEDS ORDERED: INSULIN REGULAR, HUMAN 100 UNIT/1 ML 3ML VIAL SQ SCH (16:30)
--- NOTE | 2018-02-24 17:58 | Consultation ---
DATE OF CONSULTATION: February 24, 2018 PULMONARY CONSULTATION REASON FOR CONSULTATION: Patient known to me, tracheostomy. HISTORY OF PRESENT ILLNESS: Ms. Lopez is a 68-year-old female. 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 Patient was sent [facility] because she was hypoxic and saturating 88%. The dyspnea improvement when the EMS placed her on 9 liters. She had a similar episode of mucous plugs when I was at [facility] as she was previously a resident of [facility]. She has a Shiley 6 regular tracheostomy tube. She denies any chest pain, nausea, vomiting, diarrhea. She is feeling better now. REVIEW OF SYSTEMS: GENERAL: Denies any fever or chills. HEAD: Denies any head trauma. ENT: Denies any earache. CVS: Denies any chest pain. RESPIRATORY: Denies any shortness of breath. GI: Denies any nausea or vomiting. REST OF THE REVIEW OF SYSTEMS: Are negative except as in history of present illness. PAST MEDICAL HISTORY: Tracheal stenosis. Patient has a chronic trach. PAST SURGICAL HISTORY: Tonsillectomy, hysterectomy, PEG tube, left hip replacement. FAMILY AND SOCIAL HISTORY: Diabetes on father's side. PHYSICAL EXAMINATION: VITALS: Temperature 98.7, pulse of 102, blood pressure 118/95, respiratory rate of 18. O2 sat 95%. HEENT: Head atraumatic, normocephalic. She has a tracheostomy. NECK: Supple. No JVD. She has a tracheostomy. CHEST: Clear to auscultation bilaterally. No wheezing. HEART: S1 and S2 audible. ABDOMEN: Soft, nontender. EXTREMITIES: No clubbing, cyanosis or edema. NEUROLOGICALLY: She is awake and alert, following commands. CHEST X-RAY: Is not showing any focal infiltrate or any atelectasis. LABS: White count of 7000, hemoglobin 11.0, platelets 43. Chemistry is within normal limits. ASSESSMENT: Ms. Lopez is a 68-year-old female. She has chronic tracheostomy due to tracheal stenosis. She has these episodes of mucous plugging and hypoxia. This is her second episode. Chest x-ray is not showing any focal infiltrate. PLAN: I will discuss with Dr. Hill. Patient may benefit from changing the tracheostomy to XLT or if there is any definitive treatment for tracheal stenosis like stent placement or any surgical option. At this point, will observe the patient in the ICU for any hypoxia. Continue the patient on trach collar. Patient has thrombocytopenia which is relatively new, but Hematology has been consulted. Will follow their recommendations. Job#: [id number] EV
[2018-02-24] MEDS ORDERED: LABETALOL HCL 5 MG/ML 20ML VIAL IV PRN (19:45)
[2018-02-24] MEDS ORDERED: ONDANSETRON HCL INJ 2 MG/ML VIAL IV PRN (19:45)
[2018-02-24] MEDS ORDERED: LEVALBUTEROL HCL SOLN NEBU 0.63 MG/3 ML NEB INH PRN (20:00)
[2018-02-24] MEDS ORDERED: IPRATROPIUM BROMIDE 0.02% 2.5 ML NEB NEB PRN (20:00)
[2018-02-24] MEDS: AMITRIPTYLINE HCL 25 MG TAB PEG SCH (21:00)
[2018-02-24] MEDS: METOCLOPRAMIDE HCL 10MG/10ML UDC PEG SCH (21:00)
[2018-02-24] MEDS: INSULIN LISPRO 100 UNIT/1 ML 3ML VIAL SQ SCH (21:00)
[2018-02-24] MEDS ORDERED: NON-FORMULARY MEDICATION (Metoclopramide Hcl (Reglan) 5 MG) PEG SCH (21:00)
[2018-02-25] VITALS (24 sets, daily range): BP systolic 105–155; BP diastolic 66–113
[2018-02-25] MEDS: LEVALBUTEROL HCL SOLN NEBU 0.63 MG/3 ML NEB INH SCH ×4 (01:15→19:17)
[2018-02-25] MEDS: IPRATROPIUM BROMIDE 0.02% 2.5 ML NEB NEB SCH ×4 (01:15→19:17)
--- NOTE | 2018-02-25 02:32 | Consultation ---
DATE OF CONSULTATION: REASON FOR CONSULTATION: Pneumonia. HISTORY OF PRESENT ILLNESS: This patient who is a 68-year-old female well known to me. She has history of tracheal stenosis, history of chronic tracheostomy. Patient was [place] [facility], she was there for comes in back here with altered mental status and shortness of breath. Patient was admitted. Infectious disease was consulted. Patient does not really provide meaningful information. History was taken mainly from the chart. PAST MEDICAL HISTORY: Tracheal stenosis, dementia. PAST SURGICAL HISTORY: Tracheostomy, hysterectomy, PEG tube placement, left hip replacement. ALLERGIES: NKA. SOCIAL HISTORY: From penitentiary. FAMILY HISTORY: Could not be obtained. REVIEW OF SYSTEMS: Could not be obtained. PHYSICAL EXAMINATION: GENERAL: She is currently alert, clinically does not seem to be in acute distress. VITAL SIGNS: Stable, afebrile. HEENT: She does not appear icteric. NECK: Supple. CHEST: Clear. COR: S1 and S2. No murmur. ABDOMEN: Soft. LABORATORY DATA: Reviewed. IMPRESSION: Pneumonia, probably aspiration. PATIENT IS ALLERGIC TO PENICILLIN, will put her on meropenem 500 q.8. Recheck complete blood cell count. Recheck chemistry panel. Continue Levaquin. Continue sputum for culture and sensitivity. Will follow. Job#: [id number]
[2018-02-25] MEDS: LORAZEPAM 0.5 MG TAB PEG PRN ×2 (02:46→16:56)
[2018-02-25] MEDS: LEVOTHYROXINE SODIUM 50 MCG TAB PEG SCH (05:29)
[2018-02-25] MEDS: MEROPENEM 500MG 500 MG in SODIUM CHLORIDE 0.9% 50ML 50 ML IV SCH ×3 (05:29→23:13)
[2018-02-25 06:01] LABS: BASOPHILS % 0.2 % (0.0-1.0); EOSINOPHILS # (AUTO) 0.1 (0.0-0.4); EOSINOPHILS % 0.9 % (0.0-6.0); HEMATOCRIT 38.6 % (34.2-44.1); HEMOGLOBIN 12.3 g/dL (12.0-16.0); LYMPHOCYTES # (AUTO) 1.1 (1.0-3.2); LYMPHOCYTES % 9.1 % (18.0-39.1); MEAN CORPUSCULAR HGB CONC 31.9 g/dL (31-35); MEAN CORPUSCULAR VOLUME 87.7 fL (81-99); MONOCYTES % 8.6 % (4.4-11.3); NEUTROPHILS # (AUTO) 9.5 (2.1-6.9); NEUTROPHILS % 80.8 % (38.7-80.0); PLATELET COUNT 67 x10e3/uL (140-360); RED CELL DISTRIBUTION WIDTH 17.4 % (11.7-14.4)
[2018-02-25 06:22] LABS: ANION GAP 10.8 mmol/L (8-16); BLOOD UREA NITROGEN 10 mg/dL (7-26); BUN/CREATININE RATIO 15 (6-25); CALCIUM 9.7 mg/dL (8.4-10.2); CARBON DIOXIDE 26 mmol/L (22-29); CHLORIDE 97 mmol/L (98-107); CREATININE, SERUM 0.65 mg/dL (0.57-1.11); EST GLOMERULAR FILTRATION RATE > 60 ML/MIN (60-); GLUCOSE 149 mg/dL (74-118); POTASSIUM 3.8 mmol/L (3.5-5.1); SODIUM 130 mmol/L (136-145)
[2018-02-25 06:27] LABS: MAGNESIUM 1.1 MG/DL (1.3-2.1)
[2018-02-25 06:52] LABS: CREATINE KINASE MB 0.8 ng/mL (0-5.0)
[2018-02-25 07:03] LABS: FERRITIN 158.87 ng/mL (4.63-204.00); FREE T4 (FREE THYROXINE) 0.76 ng/dL (0.9-1.8); THYROID STIMULATING HORMONE 4.034 uIU/mL (0.350-4.940)
[2018-02-25 07:21] LABS: LARGE PLATELETS RARE; PLATELET ESTIMATE MODERATELY DECREASED; PLATELET MORPHOLOGY COMMENT NORMAL; RBC MORPHOLOGY COMMENT NORMAL
[2018-02-25] MEDS: INSULIN LISPRO 100 UNIT/1 ML 3ML VIAL SQ SCH ×3 (07:30→18:00)
[2018-02-25 07:44] LABS: FOLATE 13.3 ng/mL (7.0-15.4)
[2018-02-25] MEDS ORDERED: SITAGLIPTIN 100 MG TAB PEG SCH (09:00)
[2018-02-25] MEDS ORDERED: POTASSIUM CHLORIDE 40 MG PEG SCH (09:00)
[2018-02-25] MEDS ORDERED: FUROSEMIDE 40 MG TAB PEG SCH (09:00)
[2018-02-25] MEDS ORDERED: POTASSIUM CHLORIDE 20MEQ/15ML UDC PEG SCH (09:00)
[2018-02-25] MEDS: ALLOPURINOL 100 MG TAB PEG SCH (09:30)
[2018-02-25] MEDS: METOCLOPRAMIDE HCL 10MG/10ML UDC PEG SCH ×3 (09:30→21:47)
[2018-02-25] MEDS: FAMOTIDINE 20 MG TAB PEG SCH ×2 (09:32→16:56)
[2018-02-25] MEDS ORDERED: MAGNESIUM SULFATE 2GM/50ML 50 ML IV ONE (10:00)
[2018-02-25] MEDS: LEVOFLOXACIN 500MG/D5W 100ML IV SCH (11:30)
[2018-02-25] MEDS ORDERED: MEROPENEM 500 MG VIAL ONE (14:09)
--- NOTE | 2018-02-25 14:25 | Progress Note ---
DATE: February 25, 2018 INFECTIOUS DISEASE PROGRESS NOTE SUBJECTIVE: Ms. Lopez is doing better today. There is no new complaint. Her shortness of breath is better. There is no diarrhea today. PHYSICAL EXAMINATION GENERAL: She is currently alert, oriented, does not seem to be in acute distress. VITAL SIGNS: Stable. Afebrile. HEENT: Normocephalic. She does not appear icteric. NECK: Supple. CHEST: Clear. HEART: S1 and S2. No S3 or S4, no murmur. ABDOMEN: Soft. Bowel sounds present. No tenderness. EXTREMITIES: No edema. SKIN: No rash. IMPRESSION 1. Mucous plug, status post aspiration pneumonia, getting better. Discontinue Levaquin. Continue meropenem. I think we can stop it the next few days. 2. History of Clostridium difficile seems to be stable. 3. Obesity. 4. History of respiratory failure, status post tracheostomy, status post percutaneous endoscopic gastrotomy tube placement. 5. History of dementia. 6. Debilitated. Will follow. Job#: [id number] EV
--- NOTE | 2018-02-25 15:28 | Consultation ---
DATE OF CONSULTATION: February 24, 2018 INFECTIOUS DISEASE CONSULTATION HISTORY OF PRESENT ILLNESS: This is a patient who was seen on February 24 late hours. The patient was seen and examined, chart reviewed. She is well known to me, a 68-year-old female who has history of tracheostomy, history of recurrent aspiration pneumonia, history of recurrent mucous plug, history of C diff colitis. Patient went to [facility]. She was brought here with altered mental status and shortness of breath. I was contacted by the ER physician. Patient was seen examined in the ER. This was dictated later. The patient was just complaining of shortness of breath and not feeling well and generally weak. The patient has a history of obesity, mild dementia, a history of respiratory failure, tracheostomy, hysterectomy, PEG tube placement. ALLERGIES: NKA. SOCIAL HISTORY: There is no smoking, drug abuse, alcohol abuse. She is from a correction. FAMILY HISTORY: Hypertension. REVIEW OF SYSTEMS: HEENT: There is no headache, visual changes, hearing changes. GI: There is no nausea, no vomiting. She has diarrhea on and off. : There is no urgency or frequency. SKIN: There is no rash. JOINTS: No swelling or edema or erythema. OTHER SYSTEMS: All within normal limits according to her. No new finding last 2 weeks. LABORATORY DATA: Reviewed. White count on admission was 11.7, hemoglobin 12, hematocrit 38. Chest x-ray which was done in the emergency room reviewed, showed atelectasis in the left lung with no consolidation. PHYSICAL EXAMINATION: GENERAL: She is currently alert, oriented, does not seem to be in acute distress. VITALS: Stable. Currently afebrile. HEENT: She does not appear icteric. NECK: Supple. CHEST: A few crackles. HEART: S1/S2. No S3, no S4. No murmur. ABDOMEN: Soft. IMPRESSION 1. Aspiration, mucous plug. Will put her on meropenem. Discontinue Levaquin. 2. History of Clostridium difficile. Will observe for worsening diarrhea. Continue with lactobacillus and probiotic. 3. Obesity. 4. Diabetes. 5. Debilitated. Will follow with you. Job#: [id number] EV
--- NOTE | 2018-02-25 15:45 | History and Physical ---
CHIEF COMPLAINT: Respiratory failure, mucus plug and aspiration pneumonia. HISTORY: Patient is a 68-year-old female who came from the skilled facility [facility]. Patient came in with increasing shortness of breath and difficulty breathing. The patient does have a tracheostomy at baseline. The patient has oxygen saturation of less than 80%. She is tachycardic with heart rate 117. She is morbidly obese. The patient is following commands. She is currently on high flow oxygen trach collar. Patient's heart rate remains elevated. She is in the ICU for acute hypoxia and possible aspiration pneumonia. She has been started on meropenem. The patient is currently stable. PAST MEDICAL HISTORY: Tracheostomy with respiratory failure associated with tracheal stenosis, diabetes, type 2, on insulin therapy, asthma, recurrent pneumonia, but this time most likely aspiration pneumonia, hypertension, history of C. diff toxin, colitis, eiadu-[id number]-flunswr bronchitis, urinary tract infection. PAST SURGICAL HISTORY: Hysterectomy and tracheostomy and PEG tube placement. She had a left hip replacement. SOCIAL HISTORY: Patient came from the [facility], [facility]. ALLERGIES: PENICILLIN, HEPARIN AND PENICILLIN. HOME MEDICATIONS: List is reviewed. REVIEW OF SYSTEMS: Difficulty breathing. Tachycardia. PHYSICAL EXAMINATION VITAL SIGNS: Temperature is 98, blood pressure 124/74 to 114/78, pulse rate 112-120. GENERAL: The patient is awake and following commands distress. She has a tracheostomy in place and on high flow oxygen. HEENT: Normocephalic, atraumatic and anicteric. NECK: Tracheostomy. PULMONARY: Diminished breath sounds bilaterally with some coarses at the bases. CARDIOVASCULAR: Tachycardia. ABDOMEN: Soft and obese. Feeding tube. EXTREMITIES: No cyanosis or edema. NEUROLOGIC: Patient is awake and following commands. She is not talking at this time. LABORATORY: Sodium is 130, potassium 3.8, chloride 97, bicarb 26, BUN is 10, creatinine 0.6, glucose is 149. Magnesium is 1.1. WBC is 11.7, hemoglobin 12.3, hematocrit 38.6, and platelets is 43,000. Urinalysis with trace leukocyte esterase with few wbcs. Chest x-ray is unremarkable but reliable because of the patient's obesity. IMPRESSION 1. Respiratory failure associated with hypoxia: Requires high flow oxygen. 2. Possible aspiration pneumonia: Mucus plug. 3. Thrombocytopenia, most likely from infection. 4. Baseline tracheostomy. 5. Respiratory failure. 6. Obesity. PLAN: Continue with antibiotics. Oxygen support. CT of the chest with contrast. Patient is admitted for respiratory failure. Will continue with antibiotics. Will monitor the patient closely. Get venous Doppler of the lower extremity. Need to consider workup for pulmonary embolism. The patient is otherwise stable at this time. Job#: [id number] SORAYA
--- NOTE | 2018-02-25 17:32 | Diagnostic Imaging Report ---
EXAM: CT Chest WITH contrast, PE protocol 02/25/2018 2:41 PM INDICATION: Dyspnea. Rule out pulmonary embolus COMPARISON: None TECHNIQUE: Chest was scanned utilizing a multidetector helical scanner from the lung apex through the level of the adrenal glands after the uneventful administration of IV contrast. Coronal and sagittal reformations were obtained. Pulmonary embolus protocol was performed. IV CONTRAST: 100 mL of Isovue-370 RADIATION DOSE: Total DLP: 438.44 mGy*cm Estimated effective dose: (DLP x 0.014 x size factor) mSv COMPLICATIONS: None FINDINGS: LINES/ TUBES: A tracheostomy tube is in position. PULMONARY ARTERIES: Limited examination due to motion and patient body habitus and resulting noise artifact. No pulmonary embolus to at least the lobar level. The main pulmonary artery is normal in caliber, measuring 2.6 cm. LUNGS AND AIRWAYS: There is bibasilar atelectasis/consolidation. Large airways appear patent PLEURA: Small to moderate left anterior pneumothorax. No pleural effusion. HEART AND MEDIASTINUM:Small prevascular lymph nodes measure up to 9 mm and are likely reactive. 1.2 cm right paratracheal lymph node (series 2, image 32) is nonspecific. The heart is mildly enlarged. No pericardial effusion. The visualized thyroid gland is normal. The esophagus is patulous. UPPER ABDOMEN: Limited evaluation of the upper abdomen. There are atherosclerotic calcifications of the splenic artery, partially visualized. BONES: No aggressive lytic or blastic lesions. Severe degenerative changes of the shoulders bilaterally. Multilevel degenerative changes of the thoracic spine. SOFT TISSUES: Unremarkable. IMPRESSION: 1. Limited examination due to patient body habitus and motion. 2. No pulmonary embolus to the lobar level. 3. Bibasilar atelectasis/consolidation. Aspiration is a possibility. 4. Small to moderate left apical pneumothorax. 5. Mildly enlarged mediastinal lymph nodes are nonspecific and may be reactive. Findings relayed to Sofy, the patient's ICU nurse, at 5:28 pm on 02/25/2018. Signed by: Dr. Pedro Malone M.D. on 02/25/2018 5:29 PM
[2018-02-25] MEDS: ACETYLCYSTEINE 20% INHAL SOLN 30 ML VIAL INH SCH (19:17)
[2018-02-25] MEDS: AMITRIPTYLINE HCL 25 MG TAB PEG SCH (21:48)
[2018-02-26] VITALS (27 sets, daily range): BP systolic 87–135; BP diastolic 59–127
[2018-02-26] MEDS ORDERED: IOPAMIDOL 370 MG/ML 200 ML INFUS..BTL INJ ONE (00:15)
[2018-02-26] MEDS ORDERED: SODIUM CHLORIDE 0.9% 50ML 0 ML ONE (00:15)
[2018-02-26] MEDS: INSULIN LISPRO 100 UNIT/1 ML 3ML VIAL SQ SCH ×4 (00:22→19:04)
[2018-02-26] MEDS ORDERED: SODIUM CHLORIDE 0.9% 100 ML ONE (00:23)
[2018-02-26] MEDS: LEVALBUTEROL HCL SOLN NEBU 0.63 MG/3 ML NEB INH SCH ×4 (02:30→19:20)
[2018-02-26] MEDS: IPRATROPIUM BROMIDE 0.02% 2.5 ML NEB NEB SCH ×4 (02:30→19:20)
[2018-02-26 05:49] LABS: BASOPHILS % 0.2 % (0.0-1.0); EOSINOPHILS # (AUTO) 0.1 (0.0-0.4); EOSINOPHILS % 0.8 % (0.0-6.0); HEMATOCRIT 38.2 % (34.2-44.1); HEMOGLOBIN 12.1 g/dL (12.0-16.0); LYMPHOCYTES % 6.4 % (18.0-39.1); MEAN CORPUSCULAR HEMOGLOBIN 27.6 pg (28-32); MEAN CORPUSCULAR HGB CONC 31.7 g/dL (31-35); MONOCYTES # (AUTO) 1.4 (0.2-0.8); NEUTROPHILS % 83.1 % (38.7-80.0); PLATELET COUNT 71 x10e3/uL (140-360); RED BLOOD COUNT 4.39 x10e6/uL (3.6-5.1); RED CELL DISTRIBUTION WIDTH 17.7 % (11.7-14.4)
[2018-02-26 06:14] LABS: ANION GAP 11.2 mmol/L (8-16); BLOOD UREA NITROGEN 18 mg/dL (7-26); BUN/CREATININE RATIO 25 (6-25); CALCIUM 9.4 mg/dL (8.4-10.2); CARBON DIOXIDE 28 mmol/L (22-29); CHLORIDE 97 mmol/L (98-107); CREATININE, SERUM 0.73 mg/dL (0.57-1.11); EST GLOMERULAR FILTRATION RATE > 60 ML/MIN (60-); GLUCOSE 139 mg/dL (74-118); MAGNESIUM 1.4 MG/DL (1.3-2.1); POTASSIUM 4.2 mmol/L (3.5-5.1); SODIUM 132 mmol/L (136-145)
[2018-02-26] MEDS: ACETYLCYSTEINE 20% INHAL SOLN 30 ML VIAL INH SCH ×2 (06:15→19:20)
[2018-02-26] MEDS: LEVOTHYROXINE SODIUM 50 MCG TAB PEG SCH (06:16)
[2018-02-26] MEDS: MEROPENEM 500MG 500 MG in SODIUM CHLORIDE 0.9% 50ML 50 ML IV SCH ×3 (06:16→23:01)
--- NOTE | 2018-02-26 06:16 | Diagnostic Imaging Report ---
EXAMINATION: CHEST SINGLE (PORTABLE) 02/26/2018 7:00 AM COMPARISON: 02/24/2018 INDICATION: Pneumonia. DISCUSSION: LINES: Tracheostomy tube is visualized. LUNGS: Lung volumes are low. Airspace opacity involving the left hemithorax is compatible with known atelectasis and consolidation. PLEURA: The known left pneumothorax is not conspicuous on today's exam HEART AND MEDIASTINUM: Mild enlargement of the cardiac silhouette. BONES AND SOFT TISSUES: No acute osseous lesion. The soft tissues are normal. IMPRESSION: 1. Pneumothorax is not visualized. 2. Left lung airspace disease compatible with atelectasis versus pneumonia. Signed by: Dr. Cristhian Echeverria M.D. on 02/26/2018 6:13 AM
[2018-02-26] MEDS: ALLOPURINOL 100 MG TAB PEG SCH (10:43)
[2018-02-26] MEDS: LORAZEPAM 0.5 MG TAB PEG PRN ×2 (10:43→19:04)
[2018-02-26] MEDS: FAMOTIDINE 20 MG TAB PEG SCH ×2 (10:43→19:04)
[2018-02-26] MEDS: METOCLOPRAMIDE HCL 10MG/10ML UDC PEG SCH ×3 (10:43→23:01)
[2018-02-26] MEDS ORDERED: HYDRALAZINE HCL 20 MG/ML VIAL IV PRN (11:30)
[2018-02-26] MEDS ORDERED: MAGNESIUM SULFATE 2GM/50ML 50 ML IV ONE (12:00)
[2018-02-26 12:10] LABS: CHOL/HDL RATIO 2.2 (3.0-3.6); PHOSPHORUS 3.5 MG/DL (2.3-4.7)
[2018-02-26 12:33] LABS: THYROID STIMULATING HORMONE 7.144 uIU/mL (0.350-4.940)
--- NOTE | 2018-02-26 15:47 | Consultation ---
DATE OF CONSULTATION: February 26, 2018 HEMATOLOGY/ONCOLOGY CONSULTATION ATTENDING PHYSICIAN: Dr. Stein. REASON FOR CONSULTATION: Thrombocytopenia. HISTORY OF PRESENT ILLNESS: She is a 68-year-old female with history of dementia. She has history of tracheal stenosis, recent hospital admission, and she currently was on [facility]. She was admitted here because of hypoxia. She is currently in hospital with worsening oxygen saturations. Initial impression was possible mucous plug. No fever or chills reported. She was on multiple medications at [facility]. At admission patient has worsening thrombocytopenia. Her previous record shows almost normal platelets. Her platelet count went down in 40s. No evidence of any petechiae, bruises or ecchymosis. No evidence of any bleeding including hematemesis, melena or hematochezia. PAST MEDICAL HISTORY: Tracheal stenosis, dementia, PEG tube placement. PAST SURGICAL HISTORY: Tonsillectomy, hysterectomy, PEG tube placement. FAMILY HISTORY: Reviewed, noncontributory. SOCIAL HISTORY: No current habits. REVIEW OF SYSTEMS: Twelve points reviewed as per HPI. PHYSICAL EXAMINATION GENERAL: Alert, awake, communicative. Not in acute distress. HEENT: Normocephalic, atraumatic. Sclerae pale, conjunctivae clear. NECK: Tracheostomy is placed. No JVD. CHEST: No wheezing. Clear to auscultation. HEART: Regular rate and rhythm. ABDOMEN: Soft, nontender. EXTREMITIES: No clubbing, cyanosis or edema. LODGING FACILITIES ATTENDANT: She is awake, alert, following commands. LABS: Reviewed. Hemoglobin 11, platelet count 43. Chemistry within normal limits. ASSESSMENT AND PLAN: Patient with history of multiple medical conditions, currently in hospital with poor oxygen saturations and possible mucous plug. She has history of chronic respiratory failure, on tracheostomy. No evidence of any current infection, DIC or sepsis. Likely etiology of thrombocytopenia medication-induced thrombocytopenia. Patient's platelet counts are trending upward. Currently asymptomatic. RECOMMENDATIONS: Close observation. Try to work thrombocytopenic medication. Continue remaining care. Will follow patient closely. Thank you, Dr. Stein, for this consultation. Job#: [id number] KODY
[2018-02-26] MEDS ORDERED: ACETAMINOPHEN 325 MG/10 ML UDC ONE (22:25)
[2018-02-26] MEDS: ACETAMINOPHEN 325 MG TAB PO PRN (23:01)
[2018-02-26] MEDS: AMITRIPTYLINE HCL 25 MG TAB PEG SCH (23:01)
[2018-02-27] VITALS (45 sets, daily range): BP systolic 74–161; BP diastolic 34–92
[2018-02-27] MEDS: INSULIN LISPRO 100 UNIT/1 ML 3ML VIAL SQ SCH ×4 (00:47→19:05)
[2018-02-27] MEDS: LEVALBUTEROL HCL SOLN NEBU 0.63 MG/3 ML NEB INH SCH ×4 (01:37→19:12)
[2018-02-27] MEDS: IPRATROPIUM BROMIDE 0.02% 2.5 ML NEB NEB SCH ×4 (01:37→19:12)
[2018-02-27] MEDS: LEVOTHYROXINE SODIUM 50 MCG TAB PEG SCH (06:00)
[2018-02-27] MEDS: MEROPENEM 500MG 500 MG in SODIUM CHLORIDE 0.9% 50ML 50 ML IV SCH ×3 (06:00→22:10)
[2018-02-27 06:02] LABS: BASOPHILS # (AUTO) 0.1 (0.0-0.1); BASOPHILS % 0.4 % (0.0-1.0); EOSINOPHILS # (AUTO) 0.4 (0.0-0.4); EOSINOPHILS % 1.9 % (0.0-6.0); HEMATOCRIT 37.3 % (34.2-44.1); HEMOGLOBIN 11.8 g/dL (12.0-16.0); LYMPHOCYTES # (AUTO) 1.2 (1.0-3.2); LYMPHOCYTES % 6.5 % (18.0-39.1); MEAN CORPUSCULAR HEMOGLOBIN 27.8 pg (28-32); MEAN CORPUSCULAR HGB CONC 31.6 g/dL (31-35); MONOCYTES # (AUTO) 1.6 (0.2-0.8); MONOCYTES % 8.4 % (4.4-11.3); NEUTROPHILS # (AUTO) 15.7 (2.1-6.9); NEUTROPHILS % 82.1 % (38.7-80.0); PLATELET COUNT 87 x10e3/uL (140-360); RED BLOOD COUNT 4.24 x10e6/uL (3.6-5.1); RED CELL DISTRIBUTION WIDTH 17.8 % (11.7-14.4)
[2018-02-27 06:36] LABS: ANION GAP 12.6 mmol/L (8-16); BLOOD UREA NITROGEN 26 mg/dL (7-26); BUN/CREATININE RATIO 36 (6-25); CALCIUM 9.6 mg/dL (8.4-10.2); CARBON DIOXIDE 30 mmol/L (22-29); CHLORIDE 98 mmol/L (98-107); CHOL/HDL RATIO 2.4 (3.0-3.6); CHOLESTEROL 119 MD/DL (0-199); CREATININE, SERUM 0.72 mg/dL (0.57-1.11); EST GLOMERULAR FILTRATION RATE > 60 ML/MIN (60-); GLUCOSE 121 mg/dL (74-118); HDL CHOLESTEROL 50 MG/DL (40-60); LDL CHOLESTEROL 44 MG/DL (60-130); MAGNESIUM 1.7 MG/DL (1.3-2.1); POTASSIUM 4.6 mmol/L (3.5-5.1); SODIUM 136 mmol/L (136-145); TRIGLYCERIDES 124 MG/DL (0-149)
[2018-02-27] MEDS: ACETYLCYSTEINE 20% INHAL SOLN 30 ML VIAL INH SCH ×3 (07:00→19:12)
[2018-02-27] MEDS: LORAZEPAM 0.5 MG TAB PEG PRN ×2 (07:46→13:12)
[2018-02-27] MEDS: ACETAMINOPHEN 325 MG TAB PO PRN (07:46)
[2018-02-27] MEDS: METOPROLOL TARTRATE INJ 1 MG/ML VIAL IV PRN (08:30)
[2018-02-27 08:32] LABS: BAND NEUTROPHILS % (MANUAL) 1 %; LYMPHOCYTES % (MANUAL) 5 % (19-48); MONOCYTES % (MANUAL) 8 % (3.4-9.0); NEUTROPHILS % (MANUAL) 86 % (40-74)
[2018-02-27 08:34] LABS: PLATELET ESTIMATE MODERATELY DECREASED; PLATELET MORPHOLOGY COMMENT NORMAL; RBC MORPHOLOGY COMMENT NORMAL
[2018-02-27] MEDS: METOPROLOL TARTRATE 25 MG TAB PO SCH ×3 (09:00→16:29)
[2018-02-27] MEDS: FAMOTIDINE 20 MG TAB PEG SCH ×2 (09:28→15:38)
[2018-02-27] MEDS: METOCLOPRAMIDE HCL 10MG/10ML UDC PEG SCH ×3 (09:28→20:55)
[2018-02-27] MEDS: ALLOPURINOL 100 MG TAB PEG SCH (09:29)
[2018-02-27] MEDS: ACETAMINOPHEN/CODEINE 300MG - 30MG TAB PEG PRN (11:19)
[2018-02-27] MEDS ORDERED: MEROPENEM 500 MG VIAL ONE ×2 (13:11→21:19)
[2018-02-27] MEDS: FLUTICASONE PROPIONATE NASAL SPRAY NS SCH (15:55)
--- NOTE | 2018-02-27 16:31 | Progress Note ---
DATE: February 27, 2018 The patient is seen and examined today. The patient appears comfortable. Clinical condition is improving. Current platelet count was improving. No evidence of any bleeding. OBJECTIVE GENERAL: Alert, awake, communicative. HEENT: Normocephalic and atraumatic. Sclerae pink and conjunctivae clear. NECK: Supple. CHEST: Clear to auscultation with decreased breath sounds at the bases. CARDIOVASCULAR: Regular rate and rhythm. ABDOMEN: Soft. EXTREMITIES: No edema. LABS AND IMAGING: Reviewed. ASSESSMENT AND PLAN: The patient has history of tracheostomy, dementia, currently in the hospital with possible infection. She also had worsening thrombocytopenia. Platelet count trending upward, likely etiology medication. At current, no evidence of bleeding. Platelet count is improving. Recommendation is close observation. thrombocytopenic medication. Will follow the patient closely. Job#: [id number]
[2018-02-27] MEDS: AMITRIPTYLINE HCL 25 MG TAB PEG SCH (20:55)
[2018-02-27] MEDS ORDERED: SODIUM CHLORIDE 0.9% 50ML 50 ML ONE (21:22)
[2018-02-28] VITALS (55 sets, daily range): BP systolic 74–162; BP diastolic 27–106
[2018-02-28] MEDS: INSULIN LISPRO 100 UNIT/1 ML 3ML VIAL SQ SCH ×5 (00:36→23:38)
[2018-02-28] MEDS: IPRATROPIUM BROMIDE 0.02% 2.5 ML NEB NEB SCH ×4 (02:50→19:37)
[2018-02-28] MEDS: LEVALBUTEROL HCL SOLN NEBU 0.63 MG/3 ML NEB INH SCH ×4 (02:50→19:37)
[2018-02-28 06:05] LABS: BASOPHILS % 0.2 % (0.0-1.0); EOSINOPHILS # (AUTO) 0.3 (0.0-0.4); EOSINOPHILS % 1.5 % (0.0-6.0); HEMATOCRIT 32.9 % (34.2-44.1); HEMOGLOBIN 10.2 g/dL (12.0-16.0); LYMPHOCYTES # (AUTO) 1.3 (1.0-3.2); LYMPHOCYTES % 6.7 % (18.0-39.1); MEAN CORPUSCULAR HEMOGLOBIN 27.5 pg (28-32); MEAN CORPUSCULAR VOLUME 88.7 fL (81-99); MONOCYTES # (AUTO) 1.7 (0.2-0.8); MONOCYTES % 8.6 % (4.4-11.3); NEUTROPHILS % 82.1 % (38.7-80.0); PLATELET COUNT 119 x10e3/uL (140-360); RED BLOOD COUNT 3.71 x10e6/uL (3.6-5.1); RED CELL DISTRIBUTION WIDTH 17.2 % (11.7-14.4)
[2018-02-28] MEDS: MEROPENEM 500MG 500 MG in SODIUM CHLORIDE 0.9% 50ML 50 ML IV SCH (06:27)
[2018-02-28] MEDS: LEVOTHYROXINE SODIUM 50 MCG TAB PEG SCH (06:27)
[2018-02-28 06:37] LABS: ANION GAP 11.4 mmol/L (8-16); BLOOD UREA NITROGEN 34 mg/dL (7-26); BUN/CREATININE RATIO 45 (6-25); CALCIUM 9.7 mg/dL (8.4-10.2); CARBON DIOXIDE 32 mmol/L (22-29); CHLORIDE 99 mmol/L (98-107); CREATININE, SERUM 0.75 mg/dL (0.57-1.11); EST GLOMERULAR FILTRATION RATE > 60 ML/MIN (60-); GLUCOSE 141 mg/dL (74-118); MAGNESIUM 1.7 MG/DL (1.3-2.1); POTASSIUM 5.4 mmol/L (3.5-5.1); SODIUM 137 mmol/L (136-145)
[2018-02-28] MEDS: ACETYLCYSTEINE 20% INHAL SOLN 30 ML VIAL INH SCH ×2 (07:03→19:37)
[2018-02-28] MEDS: FAMOTIDINE 20 MG TAB PEG SCH ×2 (08:32→17:50)
[2018-02-28] MEDS: METOCLOPRAMIDE HCL 10MG/10ML UDC PEG SCH ×3 (08:32→21:28)
[2018-02-28] MEDS: ALLOPURINOL 100 MG TAB PEG SCH (08:32)
[2018-02-28] MEDS: FLUTICASONE PROPIONATE NASAL SPRAY NS SCH ×2 (08:32→21:00)
[2018-02-28] MEDS: METOPROLOL TARTRATE 25 MG TAB PO SCH ×2 (08:33→20:58)
[2018-02-28] MEDS ORDERED: LACTULOSE SYRUP 20 GM/30 ML UDC PO NR (08:45)
[2018-02-28 09:42] LABS: BAND NEUTROPHILS % (MANUAL) 1 %; EOSINOPHILS % (MANUAL) 1 % (0-7); HYPOCHROMASIA SLIGHT; LYMPHOCYTES % (MANUAL) 5 % (19-48); METAMYELOCYTES % (MANUAL) 1 % (0-0); MONOCYTES % (MANUAL) 8 % (3.4-9.0); NEUTROPHILS % (MANUAL) 82 % (40-74); PLATELET ESTIMATE SLIGHTLY DECREASED; PLATELET MORPHOLOGY COMMENT FEW GIANT; RBC MORPHOLOGY COMMENT NORMAL
[2018-02-28] MEDS: VANCOMYCIN 250MG/5ML ORAL SOLN PO SCH ×3 (12:45→23:38)
[2018-02-28] MEDS: LORAZEPAM 0.5 MG TAB PEG PRN (17:50)
[2018-02-28] MEDS: ACETAMINOPHEN/CODEINE 300MG - 30MG TAB PEG PRN (17:50)
--- NOTE | 2018-02-28 19:38 | Consultation ---
DATE OF CONSULTATION: February 28, 2018 HOSPITAL CONSULTATION HISTORY OF PRESENT ILLNESS: I was kindly asked to see this 68-year-old woman well known to me from previous inpatient and outpatient evaluation and treatment. She has a history of tracheal stenosis, which has failed previous surgical therapy. She has a #6 Shiley TITLE ASSISTANT tracheostomy tube in place and suffered respiratory distress secondary to mucus plugging now presents for definitive therapy. Her history of present illness, past medical history, and past surgical history were all reviewed in detail on the chart. EXAMINATION GENERAL: Patient is in no acute distress. NECK: There is a #6 Shiley TITLE ASSISTANT tracheostomy tube in place. The tracheostomy tube was removed and a #8 Shiley XLT proximal tracheostomy tube was attempted to be placed through the tracheostomy site and the tube was easily inserted into the trachea, but could not be advanced beyond the tip of the previous #6 Shiley TITLE ASSISTANT tracheostomy tube. At this point, the tracheostomy tube was removed. The patient was de-ventilated and a #6 Shiley XLT proximal tracheostomy tube attempted to be placed through the same tracheostomy site; however, the tube could not be advanced beyond the tip of the previous tracheostomy tube. ASSESSMENT 1. Tracheal stenosis. 2. Airway distress secondary to small tracheostomy tube. PLAN: Surgical intervention with revision of the tracheostomy site and tracheal dilation. Job#: [id number] CQ
[2018-02-28] MEDS: AMITRIPTYLINE HCL 25 MG TAB PEG SCH (21:28)
[2018-03-01] VITALS (28 sets, daily range): BP systolic 80–129; BP diastolic 44–88
[2018-03-01] MEDS: IPRATROPIUM BROMIDE 0.02% 2.5 ML NEB NEB SCH ×4 (00:35→20:00)
[2018-03-01] MEDS: LEVALBUTEROL HCL SOLN NEBU 0.63 MG/3 ML NEB INH SCH ×4 (00:35→20:00)
[2018-03-01 02:58] LABS: BASOPHILS % 0.2 % (0.0-1.0); EOSINOPHILS # (AUTO) 0.3 (0.0-0.4); EOSINOPHILS % 2.4 % (0.0-6.0); HEMATOCRIT 31.3 % (34.2-44.1); HEMOGLOBIN 10.1 g/dL (12.0-16.0); LYMPHOCYTES # (AUTO) 0.9 (1.0-3.2); LYMPHOCYTES % 7.9 % (18.0-39.1); MEAN CORPUSCULAR HEMOGLOBIN 28.4 pg (28-32); MEAN CORPUSCULAR HGB CONC 32.3 g/dL (31-35); MEAN CORPUSCULAR VOLUME 87.9 fL (81-99); MONOCYTES # (AUTO) 0.9 (0.2-0.8); MONOCYTES % 8.1 % (4.4-11.3); NEUTROPHILS % 80.9 % (38.7-80.0); PLATELET COUNT 135 x10e3/uL (140-360); RED BLOOD COUNT 3.56 x10e6/uL (3.6-5.1); RED CELL DISTRIBUTION WIDTH 17.1 % (11.7-14.4)
[2018-03-01 03:16] LABS: ANION GAP 12.6 mmol/L (8-16); BLOOD UREA NITROGEN 30 mg/dL (7-26); BUN/CREATININE RATIO 48 (6-25); CALCIUM 9.6 mg/dL (8.4-10.2); CARBON DIOXIDE 30 mmol/L (22-29); CHLORIDE 100 mmol/L (98-107); CREATININE, SERUM 0.62 mg/dL (0.57-1.11); EST GLOMERULAR FILTRATION RATE > 60 ML/MIN (60-); GLUCOSE 127 mg/dL (74-118); MAGNESIUM 1.4 MG/DL (1.3-2.1); POTASSIUM 4.6 mmol/L (3.5-5.1); SODIUM 138 mmol/L (136-145)
[2018-03-01] MEDS: LEVOTHYROXINE SODIUM 50 MCG TAB PEG SCH (06:33)
[2018-03-01] MEDS: VANCOMYCIN 250MG/5ML ORAL SOLN PO SCH ×4 (06:33→23:52)
[2018-03-01] MEDS: INSULIN LISPRO 100 UNIT/1 ML 3ML VIAL SQ SCH ×3 (06:33→17:25)
[2018-03-01] MEDS: ACETYLCYSTEINE 20% INHAL SOLN 30 ML VIAL INH SCH ×2 (07:00→20:00)
[2018-03-01] MEDS: FAMOTIDINE 20 MG TAB PEG SCH ×2 (07:30→17:20)
[2018-03-01] MEDS: METOPROLOL TARTRATE 25 MG TAB PO SCH ×2 (09:00→21:43)
[2018-03-01] MEDS: FLUTICASONE PROPIONATE NASAL SPRAY NS SCH ×2 (09:00→21:00)
[2018-03-01] MEDS: ALLOPURINOL 100 MG TAB PEG SCH (09:00)
[2018-03-01] MEDS: METOCLOPRAMIDE HCL 10MG/10ML UDC PEG SCH ×3 (09:00→21:43)
[2018-03-01] MEDS ORDERED: SODIUM CHLORIDE 0.9% 1000ML 1,000 ML IV ONE (09:30)
--- NOTE | 2018-03-01 13:55 | Diagnostic Imaging Report ---
History: Tracheal stenosis Comparison studies: CT of chest with contrast 02/25/2018 Technique: Axial images were obtained from the skull base to the thoracic inlet. Coronal and sagittal images reconstructed from the axial data. Intravenous contrast: None Findings: Tracheostomy changes. Concentric thickening of the tracheal wall inferior to the tracheostomy tube with more than 70% stenosis of a 1.4 cm segment, likely related to scarring Evaluation of the neck is limited due to the absence of intravenous contrast. In spite of this limitation, Soft tissues: No acute abnormalities. Atrophic changes of the paraspinal musculature.. Lymph nodes: No radiographically significant adenopathy. Vessels: Cannot evaluate patency. Atherosclerotic calcifications at the bulb. Glands (thyroid, parotid and submandibular): Normal in size and symmetric. No masses. Orbits: No abnormalities. Paranasal sinuses: Clear Temporal bones: Opacification of the bilateral mastoid air cells, secondary to nonspecific inflammation. Skull base and facial bones: Intact. Cervical spine: Facet hypertrophy and uncinate process hypertrophy results in mild multilevel foraminal narrowing. The canal is grossly patent Partially visualized bilateral lung consolidation and small left apical pneumothorax, stable. Dilated esophagus. Degenerative changes of the bilateral glenohumeral joints IMPRESSION: 1. Tracheostomy changes with infraglottic high-grade stenosis of the trachea on a 1.4 cm segment below the tracheostomy tube tip. 2. Other findings as detailed above. 3. Signed by: DR Brayan Burr M.D. on 03/01/2018 1:51 PM
[2018-03-01] MEDS ORDERED: SODIUM CHLORIDE 0.9% 1000ML 1,000 ML ONE (14:26)
[2018-03-01] MEDS: AMITRIPTYLINE HCL 25 MG TAB PEG SCH (21:43)
[2018-03-02] VITALS: BP 119/56
[2018-03-02] MEDS: IPRATROPIUM BROMIDE 0.02% 2.5 ML NEB NEB SCH ×4 (00:15→19:30)
[2018-03-02] MEDS: LEVALBUTEROL HCL SOLN NEBU 0.63 MG/3 ML NEB INH SCH ×4 (00:15→19:30)
[2018-03-02 03:10] LABS: BASOPHILS % 0.3 % (0.0-1.0); EOSINOPHILS # (AUTO) 0.3 (0.0-0.4); EOSINOPHILS % 3.6 % (0.0-6.0); HEMATOCRIT 28.3 % (34.2-44.1); HEMOGLOBIN 9.1 g/dL (12.0-16.0); LYMPHOCYTES # (AUTO) 1.1 (1.0-3.2); LYMPHOCYTES % 11.4 % (18.0-39.1); MEAN CORPUSCULAR HEMOGLOBIN 28.2 pg (28-32); MEAN CORPUSCULAR HGB CONC 32.2 g/dL (31-35); MEAN CORPUSCULAR VOLUME 87.6 fL (81-99); MONOCYTES % 10.2 % (4.4-11.3); PLATELET COUNT 161 x10e3/uL (140-360); RED BLOOD COUNT 3.23 x10e6/uL (3.6-5.1); RED CELL DISTRIBUTION WIDTH 16.7 % (11.7-14.4)
[2018-03-02 03:27] LABS: BLOOD UREA NITROGEN 18 mg/dL (7-26); BUN/CREATININE RATIO 34 (6-25); CALCIUM 9.4 mg/dL (8.4-10.2); CARBON DIOXIDE 29 mmol/L (22-29); CHLORIDE 102 mmol/L (98-107); CREATININE, SERUM 0.53 mg/dL (0.57-1.11); EST GLOMERULAR FILTRATION RATE > 60 ML/MIN (60-); GLUCOSE 84 mg/dL (74-118); SODIUM 139 mmol/L (136-145)
[2018-03-02 03:33] LABS: MAGNESIUM 1.1 MG/DL (1.3-2.1)
[2018-03-02 04:00] VITALS: BP 141/63
[2018-03-02] MEDS ORDERED: MAGNESIUM SULFATE 2GM/50ML 100 ML IV ONE (04:00)
[2018-03-02] MEDS ORDERED: MAGNESIUM SULFATE 2GM/50ML 50 ML IV ONE ×3 (05:00→11:25)
[2018-03-02] MEDS: LEVOTHYROXINE SODIUM 50 MCG TAB PEG SCH (05:45)
[2018-03-02] MEDS: VANCOMYCIN 250MG/5ML ORAL SOLN PO SCH ×3 (05:45→18:25)
[2018-03-02] MEDS: INSULIN LISPRO 100 UNIT/1 ML 3ML VIAL SQ SCH ×4 (06:00→18:30)
[2018-03-02] MEDS: ACETYLCYSTEINE 20% INHAL SOLN 30 ML VIAL INH SCH ×2 (06:45→19:00)
[2018-03-02] MEDS: FAMOTIDINE 20 MG TAB PEG SCH ×2 (07:30→16:30)
[2018-03-02 07:40] VITALS: BP 138/90
[2018-03-02] MEDS: FERROUS SULFATE 325 MG TAB PO SCH ×2 (08:00→17:00)
[2018-03-02] MEDS: ALLOPURINOL 100 MG TAB PEG SCH (09:00)
[2018-03-02] MEDS: ASCORBIC ACID 500 MG TAB PO SCH ×2 (09:00→17:00)
[2018-03-02] MEDS: FLUTICASONE PROPIONATE NASAL SPRAY NS SCH ×2 (09:00→21:00)
[2018-03-02] MEDS: METOCLOPRAMIDE HCL 10MG/10ML UDC PEG SCH ×3 (09:00→21:30)
[2018-03-02] MEDS: METOPROLOL TARTRATE 25 MG TAB PO SCH ×2 (09:00→21:30)
[2018-03-02 16:12] VITALS: BP 148/82
[2018-03-02 20:00] VITALS: BP 118/69
[2018-03-02] MEDS ORDERED: SODIUM CHLORIDE 0.9% 1000ML 1,000 ML ONE (20:51)
[2018-03-02] MEDS: AMITRIPTYLINE HCL 25 MG TAB PEG SCH (21:00)
[2018-03-02] MEDS ORDERED: DIGOXIN INJ 0.25 MG/ML 2 ML AMP ONE (22:51)
[2018-03-02] MEDS ORDERED: DIGOXIN INJ 0.25 MG/ML 2 ML AMP IV ONE (23:00)
[2018-03-02] MEDS: METOPROLOL TARTRATE INJ 1 MG/ML VIAL IV PRN (23:36)
[2018-03-03] VITALS (56 sets, daily range): BP systolic 85–134; BP diastolic 32–99
[2018-03-03] MEDS: IPRATROPIUM BROMIDE 0.02% 2.5 ML NEB NEB SCH ×4 (00:30→19:30)
[2018-03-03] MEDS: LEVALBUTEROL HCL SOLN NEBU 0.63 MG/3 ML NEB INH SCH ×4 (00:30→19:30)
[2018-03-03] MEDS: INSULIN LISPRO 100 UNIT/1 ML 3ML VIAL SQ SCH ×4 (01:00→18:00)
[2018-03-03 05:38] LABS: BASOPHILS % 0.2 % (0.0-1.0); EOSINOPHILS # (AUTO) 0.1 (0.0-0.4); EOSINOPHILS % 0.9 % (0.0-6.0); HEMATOCRIT 29.3 % (34.2-44.1); HEMOGLOBIN 9.3 g/dL (12.0-16.0); LYMPHOCYTES # (AUTO) 0.9 (1.0-3.2); LYMPHOCYTES % 9.9 % (18.0-39.1); MEAN CORPUSCULAR HEMOGLOBIN 27.8 pg (28-32); MEAN CORPUSCULAR HGB CONC 31.7 g/dL (31-35); MEAN CORPUSCULAR VOLUME 87.5 fL (81-99); MONOCYTES # (AUTO) 0.9 (0.2-0.8); MONOCYTES % 10.6 % (4.4-11.3); NEUTROPHILS # (AUTO) 6.7 (2.1-6.9); NEUTROPHILS % 77.3 % (38.7-80.0); PLATELET COUNT 194 x10e3/uL (140-360); RED BLOOD COUNT 3.35 x10e6/uL (3.6-5.1); RED CELL DISTRIBUTION WIDTH 16.7 % (11.7-14.4)
[2018-03-03] MEDS: VANCOMYCIN 250MG/5ML ORAL SOLN PO SCH ×4 (06:05→17:26)
[2018-03-03] MEDS: LEVOTHYROXINE SODIUM 50 MCG TAB PEG SCH (06:05)
[2018-03-03 06:09] LABS: ANION GAP 12.1 mmol/L (8-16); BLOOD UREA NITROGEN 12 mg/dL (7-26); BUN/CREATININE RATIO 22 (6-25); CALCIUM 9.3 mg/dL (8.4-10.2); CARBON DIOXIDE 27 mmol/L (22-29); CHLORIDE 104 mmol/L (98-107); CREATININE, SERUM 0.55 mg/dL (0.57-1.11); EST GLOMERULAR FILTRATION RATE > 60 ML/MIN (60-); GLUCOSE 114 mg/dL (74-118); MAGNESIUM 1.6 MG/DL (1.3-2.1); POTASSIUM 4.1 mmol/L (3.5-5.1); SODIUM 139 mmol/L (136-145)
[2018-03-03] MEDS: ACETYLCYSTEINE 20% INHAL SOLN 30 ML VIAL INH SCH ×2 (07:08→19:30)
[2018-03-03] MEDS: FAMOTIDINE 20 MG TAB PEG SCH ×2 (07:30→17:26)
[2018-03-03] MEDS: FERROUS SULFATE 325 MG TAB PO SCH ×2 (08:00→17:26)
[2018-03-03] MEDS: METOPROLOL TARTRATE 25 MG TAB PO SCH ×3 (09:00→21:00)
[2018-03-03] MEDS: ASCORBIC ACID 500 MG TAB PO SCH ×2 (09:00→17:26)
[2018-03-03] MEDS: METOCLOPRAMIDE HCL 10MG/10ML UDC PEG SCH ×3 (09:00→21:00)
[2018-03-03] MEDS: ALLOPURINOL 100 MG TAB PEG SCH (09:00)
[2018-03-03] MEDS: FLUTICASONE PROPIONATE NASAL SPRAY NS SCH ×2 (09:54→21:00)
[2018-03-03] MEDS ORDERED: KETAMINE HCL INJ 50 MG/ML 10 ML VIAL ONE (13:07)
[2018-03-03] MEDS ORDERED: MIDAZOLAM HCL 2 MG/2 ML VIAL ONE (13:07)
[2018-03-03] MEDS ORDERED: LIDOCAINE 1% W/EPINEPHRINE 20 ML VIAL ONE ×2 (14:30→14:50)
--- NOTE | 2018-03-03 17:08 | Operative Report ---
DATE OF PROCEDURE: March 03, 2018 PREOPERATIVE DIAGNOSIS: Tracheal stenosis. POSTOPERATIVE DIAGNOSIS: Tracheal stenosis. TITLE OF PROCEDURE: Tracheal dilation with replacement of tracheostomy tube. ANESTHESIA: General. ESTIMATED BLOOD LOSS: Less than 10 mL. COMPLICATIONS: None. OPERATIVE FINDINGS: Stenosis distal to the tracheostomy tube. OPERATIVE INDICATIONS: This 68-year-old woman presented with a history of tracheal stenosis. She had near complete obstruction of the trachea from the top of the tracheostomy tube to the vocal cords and had developed stenosis distal to the number 6 Shiley PACKAGE CLERK tracheostomy tube. Attempt was made to replace the number 6 Shiley PACKAGE CLERK tracheostomy tube with a number 6 Shiley XLT distal. However, the tracheostomy tube could not be passed secondary to the amount of stenosis. Subsequent CT scan demonstrated clinically significant stenosis with approximately 70% stenosis of the tracheal lumen distal to the tracheostomy tube. The patient had suffered an additional respiratory arrest with the number 6 Shiley PACKAGE CLERK tube in place and had difficulty with mucous plugging and has elected to proceed with tracheal dilation and replacement of a larger tracheostomy tube. NARRATIVE REPORT: After first obtaining adequate general anesthesia through the previously placed tracheostomy tube, an intubating bougie was passed through the number 6 Shiley PACKAGE CLERK tube and was easily passed through the stenotic segment distal to the tracheostomy tube. The number 6 Shiley PACKAGE CLERK was then removed and a 5.5 endotracheal tube was placed over the intubating bougie into the stenotic segment. The cuff of the endotracheal tube was then inflated and left for a period of approximately 5 minutes while ventilating the patient. The intubating bougie was then again inserted and the 5.5 endotracheal tube removed and a 6.5 endotracheal tube placed over the intubating bougie. The cuff was placed at the level of the tracheal stenosis, and the cuff was then inflated for approximately 5 minutes. The intubating bougie was then placed through the 6.5 endotracheal tube, and the endotracheal tube was removed and a number 8 Shiley XLT distal tracheostomy tube was then placed over the intubating bougie. The intubating bougie was removed and the inner cannula was inserted. CO2 was confirmed in the exhaled gases, and she was doing well. The number 8 Shiley XLT distal tracheostomy tube was then sutured in place with 2-0 nylon, and the patient was returned to the intensive care unit in satisfactory condition. Job#: [id number]
--- NOTE | 2018-03-03 18:03 | Diagnostic Imaging Report ---
PROCEDURE: A single AP view of the chest. COMPARISON: Patients [facility], DX, CHEST SINGLE (PORTABLE), 02/26/2018, 5:51. Patients [facility], DX, CHEST SINGLE (PORTABLE), 03/02/2018, 23:15. INDICATIONS: SOB, COUGH FINDINGS: Lines/tubes: Tracheostomy tube with distal tip approximately 2-3 cm proximal to the marlyn. Lungs: The mild diffuse increased density throughout the left pneumothorax.. There is no evidence of pneumonia or pulmonary edema. Pleura: There is a moderate to large right sided pneumothorax with an air gap of 5.5 cm. Heart and mediastinum: The heart and the mediastinum are unremarkable. Bones: No acute bony abnormality. IMPRESSION: 1. Moderate to large right pneumothorax. Discussed with nurse Precious from the ICU at 6 PM on 03/03/18 who will relay the information to Dr. Sanchez from ENT. Babak Franklin M.D. Dictated by: Babak Franklin M.D. on 03/03/2018 at 18:07 Electronically approved by: Babak Franklin M.D. on 03/03/2018 at 18:07
[2018-03-03] MEDS ORDERED: LORAZEPAM INJ 2 MG/ML VIAL ONE (19:26)
--- NOTE | 2018-03-03 19:40 | Diagnostic Imaging Report ---
Examination: Single AP view of the chest. COMPARISON: CT soft tissue neck 03/01/2018, AP chest 02/26/2018, CT chest 02/25/2018 INDICATION: Tracheostomy tube replaced, from cytopenia IMPRESSION: 1. Lines and Tubes: Tracheostomy tube in place. 2. Increased retrocardiac density and patchy opacity in the left lower lung, consistent with previously visualized left lower lobe consolidation. 3. Enlarged cardiac silhouette. Pulmonary vasculature is normal. 4. No acute bony abnormalities. Signed by: Dr. Og Arrington M.D. on 03/03/2018 7:36 PM
[2018-03-03] MEDS ORDERED: LIDOCAINE 1% W/EPINEPHRINE 20 ML VIAL INJ ONE ×2 (19:45→20:00)
[2018-03-03] MEDS ORDERED: LORAZEPAM INJ 2 MG/ML VIAL IV NR (19:45)
--- NOTE | 2018-03-03 20:33 | Diagnostic Imaging Report ---
Examination: Single AP view of the chest. COMPARISON: Chest AP portable 03/03/2018 INDICATION: Status post chest tube placement IMPRESSION: 1. Lines and Tubes: Interval placement of right-sided chest tube, with tip projecting in the right apex. 2. Interval resolution of the previously visualized right pneumothorax. No residual pneumothorax is identified in this limited view. Unchanged central pulmonary venous congestion and likely interstitial edema in the left lung. 3. Enlarged cardiac silhouette 4. No acute bony abnormalities. Signed by: Dr. Og Arrington M.D. on 03/03/2018 8:30 PM
[2018-03-03] MEDS: AMITRIPTYLINE HCL 25 MG TAB PEG SCH (21:00)
[2018-03-04] VITALS (58 sets, daily range): BP systolic 79–133; BP diastolic 20–80
[2018-03-04] MEDS: LEVALBUTEROL HCL SOLN NEBU 0.63 MG/3 ML NEB INH SCH ×4 (00:15→19:00)
[2018-03-04] MEDS: IPRATROPIUM BROMIDE 0.02% 2.5 ML NEB NEB SCH ×4 (00:15→19:00)
[2018-03-04] MEDS: VANCOMYCIN 250MG/5ML ORAL SOLN PO SCH ×4 (00:30→18:15)
[2018-03-04 05:30] LABS: BASOPHILS % 0.4 % (0.0-1.0); EOSINOPHILS # (AUTO) 0.4 (0.0-0.4); EOSINOPHILS % 4.7 % (0.0-6.0); HEMATOCRIT 29.9 % (34.2-44.1); HEMOGLOBIN 9.5 g/dL (12.0-16.0); LYMPHOCYTES # (AUTO) 1.2 (1.0-3.2); LYMPHOCYTES % 14.9 % (18.0-39.1); MEAN CORPUSCULAR HEMOGLOBIN 27.5 pg (28-32); MEAN CORPUSCULAR HGB CONC 31.8 g/dL (31-35); MEAN CORPUSCULAR VOLUME 86.7 fL (81-99); MONOCYTES # (AUTO) 0.9 (0.2-0.8); MONOCYTES % 11.2 % (4.4-11.3); NEUTROPHILS # (AUTO) 5.3 (2.1-6.9); NEUTROPHILS % 67.4 % (38.7-80.0); PLATELET COUNT 212 x10e3/uL (140-360); RED BLOOD COUNT 3.45 x10e6/uL (3.6-5.1); RED CELL DISTRIBUTION WIDTH 16.5 % (11.7-14.4)
[2018-03-04 05:46] LABS: BLOOD UREA NITROGEN 11 mg/dL (7-26); BUN/CREATININE RATIO 20 (6-25); CALCIUM 9.3 mg/dL (8.4-10.2); CARBON DIOXIDE 29 mmol/L (22-29); CHLORIDE 104 mmol/L (98-107); CREATININE, SERUM 0.56 mg/dL (0.57-1.11); EST GLOMERULAR FILTRATION RATE > 60 ML/MIN (60-); GLUCOSE 111 mg/dL (74-118); MAGNESIUM 1.3 MG/DL (1.3-2.1); SODIUM 142 mmol/L (136-145)
[2018-03-04] MEDS: LEVOTHYROXINE SODIUM 50 MCG TAB PEG SCH (06:14)
[2018-03-04] MEDS: INSULIN LISPRO 100 UNIT/1 ML 3ML VIAL SQ SCH ×4 (06:15→17:43)
[2018-03-04] MEDS: ACETYLCYSTEINE 20% INHAL SOLN 30 ML VIAL INH SCH ×2 (07:00→19:05)
--- NOTE | 2018-03-04 08:12 | Diagnostic Imaging Report ---
EXAMINATION: CHEST SINGLE (PORTABLE) INDICATION: \S\RIGHT CHEST TUBE FOR PNUEMO COMPARISON: Chest x-ray 03/03/2018. FINDINGS: AP view TUBES and LINES: Stable right-sided chest tube. Tracheostomy tube remains in place. LUNGS: Lungs are not well inflated. Interval worsening of diffuse hazy opacifications of bilateral chest especially in the left lung. PLEURA: Likely small bilateral pleural effusions. HEART AND MEDIASTINUM: Cardiac size is severely enlarged. BONES AND SOFT TISSUES: No acute osseous lesion. Soft tissues are unremarkable. UPPER ABDOMEN: No free air under the diaphragm. IMPRESSION: Stable right chest tube with no pneumothorax. Worsening pulmonary edema. Signed by: Dr. Cornelius Randle M.D. on 03/04/2018 8:08 AM
[2018-03-04] MEDS: ASCORBIC ACID 500 MG TAB PO SCH ×2 (08:34→17:33)
[2018-03-04] MEDS: ALLOPURINOL 100 MG TAB PEG SCH (08:34)
[2018-03-04] MEDS: FLUTICASONE PROPIONATE NASAL SPRAY NS SCH ×2 (08:34→20:10)
[2018-03-04] MEDS: FERROUS SULFATE 325 MG TAB PO SCH ×2 (08:34→17:33)
[2018-03-04] MEDS: FAMOTIDINE 20 MG TAB PEG SCH ×2 (08:34→17:33)
[2018-03-04] MEDS: METOPROLOL TARTRATE 25 MG TAB PO SCH ×2 (08:35→20:10)
[2018-03-04] MEDS: METOCLOPRAMIDE HCL 10MG/10ML UDC PEG SCH ×3 (08:35→20:10)
[2018-03-04] MEDS: ACETAMINOPHEN/CODEINE 300MG - 30MG TAB PEG PRN ×2 (09:05→20:58)
[2018-03-04] MEDS ORDERED: FUROSEMIDE INJ 10 MG/ML 2 ML VIAL IV ONE (10:15)
[2018-03-04 12:51] LABS: ABG HCO3 29 mmol/L (23-28); ABG PCO2 44 mmHg (41-51); ABG PH 7.42 (7.31-7.41); ABG PO2 69 mmHg (80-105)
[2018-03-04] MEDS: AMITRIPTYLINE HCL 25 MG TAB PEG SCH (20:10)
[2018-03-05] VITALS (11 sets, daily range): BP systolic 87–123; BP diastolic 39–67
--- NOTE | 2018-03-05 00:01 | Progress Note ---
DATE: March 04, 2018 SUBJECTIVE: Patient seen and examined today. Patient appeared comfortable. She had postprocedure pneumothorax. She had tracheostomy placement yesterday. Current platelet counts are normal. PHYSICAL EXAMINATION: GENERAL: Alert, awake, lethargic. HEENT: Normocephalic, atraumatic. Sclerae pink. Conjunctivae clear. NECK: Supple. CHEST: Decreased breath sounds at bases. CARDIOVASCULAR: Regular rate and rhythm. ABDOMEN: Soft. EXTREMITIES: No edema. LABS AND IMAGING: Reviewed. ASSESSMENT AND PLAN: Patient with history of chronic respiratory failure, status post tracheostomy. She is in hospital with shortness of breath. She is currently following ENT. She had tracheostomy replacement. She also has thrombocytopenia and anemia. Current platelet counts are normal. Current hemoglobin low, but stable. Clinical condition is stable. At this point, will continue current care, try to avoid thrombocytopenic medications. Will follow patient. Job#: [id number]
[2018-03-05] MEDS: IPRATROPIUM BROMIDE 0.02% 2.5 ML NEB NEB SCH ×4 (00:15→20:15)
[2018-03-05] MEDS: LEVALBUTEROL HCL SOLN NEBU 0.63 MG/3 ML NEB INH SCH ×4 (00:15→20:15)
[2018-03-05] MEDS: INSULIN LISPRO 100 UNIT/1 ML 3ML VIAL SQ SCH ×4 (01:00→17:44)
[2018-03-05] MEDS: VANCOMYCIN 250MG/5ML ORAL SOLN PO SCH ×4 (01:00→17:11)
[2018-03-05] MEDS: LEVOTHYROXINE SODIUM 50 MCG TAB PEG SCH (05:48)
--- NOTE | 2018-03-05 06:07 | Diagnostic Imaging Report ---
EXAM: CHEST SINGLE (PORTABLE), AP 1 view INDICATION: Chest tube, right pneumothorax COMPARISON: AP view of the chest March 04, 2018 FINDINGS: LINES/TUBES: Stable tracheostomy. The right chest tube may have been slightly retracted versus patient rotation. LUNGS: Faint bilateral opacities suggesting edema. PLEURA: Likely small bilateral pleural effusions. HEART AND MEDIASTINUM: Stable appearance given differences in positioning. BONES AND SOFT TISSUES: No acute findings. IMPRESSION: No evidence of a pneumothorax. Signed by: Dr. Akanksha Ponce M.D. on 03/05/2018 6:04 AM
[2018-03-05 06:30] LABS: BASOPHILS % 0.2 % (0.0-1.0); EOSINOPHILS # (AUTO) 0.5 (0.0-0.4); EOSINOPHILS % 5.2 % (0.0-6.0); HEMATOCRIT 29.9 % (34.2-44.1); HEMOGLOBIN 9.4 g/dL (12.0-16.0); LYMPHOCYTES # (AUTO) 1.2 (1.0-3.2); LYMPHOCYTES % 13.6 % (18.0-39.1); MEAN CORPUSCULAR HEMOGLOBIN 27.1 pg (28-32); MEAN CORPUSCULAR HGB CONC 31.4 g/dL (31-35); MEAN CORPUSCULAR VOLUME 86.2 fL (81-99); MONOCYTES # (AUTO) 1.1 (0.2-0.8); MONOCYTES % 12.8 % (4.4-11.3); NEUTROPHILS # (AUTO) 5.8 (2.1-6.9); NEUTROPHILS % 65.6 % (38.7-80.0); PLATELET COUNT 210 x10e3/uL (140-360); RED BLOOD COUNT 3.47 x10e6/uL (3.6-5.1); RED CELL DISTRIBUTION WIDTH 16.5 % (11.7-14.4)
[2018-03-05 06:58] LABS: BLOOD UREA NITROGEN 12 mg/dL (7-26); BUN/CREATININE RATIO 20 (6-25); CALCIUM 9.5 mg/dL (8.4-10.2); CARBON DIOXIDE 30 mmol/L (22-29); CHLORIDE 101 mmol/L (98-107); EST GLOMERULAR FILTRATION RATE > 60 ML/MIN (60-); GLUCOSE 129 mg/dL (74-118); MAGNESIUM 1.3 MG/DL (1.3-2.1); SODIUM 140 mmol/L (136-145)
[2018-03-05] MEDS: ACETYLCYSTEINE 20% INHAL SOLN 30 ML VIAL INH SCH ×2 (07:30→20:30)
[2018-03-05] MEDS: FERROUS SULFATE 325 MG TAB PO SCH ×2 (08:15→16:32)
[2018-03-05] MEDS: FAMOTIDINE 20 MG TAB PEG SCH ×2 (08:16→16:32)
[2018-03-05] MEDS: METOCLOPRAMIDE HCL 10MG/10ML UDC PEG SCH ×3 (08:16→21:19)
[2018-03-05] MEDS: ALLOPURINOL 100 MG TAB PEG SCH (08:16)
[2018-03-05] MEDS: ASCORBIC ACID 500 MG TAB PO SCH ×2 (08:18→16:32)
[2018-03-05] MEDS: METOPROLOL TARTRATE 25 MG TAB PO SCH ×2 (08:18→21:20)
[2018-03-05] MEDS: ACETAMINOPHEN/CODEINE 300MG - 30MG TAB PEG PRN (08:19)
[2018-03-05] MEDS: LORAZEPAM 0.5 MG TAB PO PRN (08:19)
[2018-03-05 08:57] LABS: EOSINOPHILS % (MANUAL) 6 % (0-7); LYMPHOCYTES % (MANUAL) 14 % (19-48); MONOCYTES % (MANUAL) 12 % (3.4-9.0); NEUTROPHILS % (MANUAL) 68 % (40-74); PLATELET ESTIMATE ADEQUATE
[2018-03-05 08:58] LABS: PLATELET MORPHOLOGY COMMENT NORMAL; RBC MORPHOLOGY COMMENT NORMAL
[2018-03-05] MEDS: FLUTICASONE PROPIONATE NASAL SPRAY NS SCH ×2 (09:00→21:19)
--- NOTE | 2018-03-05 21:08 | Progress Note ---
DATE: March 05, 2018 SUBJECTIVE: Patient seen and examined. She appears better. Clinical condition is improving. PHYSICAL EXAMINATION: GENERAL: Awake. HEENT: Normocephalic, atraumatic. Sclerae pink. Conjunctivae clear. NECK: Tracheostomy in place. CARDIOVASCULAR: Regular rate and rhythm. CHEST: Clear to auscultation with decreased breath sounds on bases. Patient also had chest tube placement. ABDOMEN: Soft, nontender. EXTREMITIES: No clubbing, cyanosis, edema. LABS AND IMAGING: Reviewed. ASSESSMENT AND PLAN: Patient with history of multiple medical conditions. I am currently involved with: 1. Thrombocytopenia. Patient current platelet count was normal and improving. Will follow patient. Try to avoid thrombocytopenic medication. 2. Respiratory failure. Patient has chronic tracheostomy. recently. Clinically doing better. 3. Pneumothorax. Patient already had chest tube placement. Following parks recreation director. Will continue remaining care. Will follow patient. Job#: [id number]
[2018-03-05] MEDS: AMITRIPTYLINE HCL 25 MG TAB PEG SCH (21:19)
[2018-03-06] MEDS: INSULIN LISPRO 100 UNIT/1 ML 3ML VIAL SQ SCH ×4 (00:10→18:00)
[2018-03-06] MEDS: VANCOMYCIN 250MG/5ML ORAL SOLN PO SCH ×4 (00:16→18:51)
[2018-03-06] MEDS: LEVALBUTEROL HCL SOLN NEBU 0.63 MG/3 ML NEB INH SCH ×4 (01:25→19:40)
[2018-03-06] MEDS: IPRATROPIUM BROMIDE 0.02% 2.5 ML NEB NEB SCH ×4 (01:25→19:40)
[2018-03-06 04:30] VITALS: BP 125/68
[2018-03-06 05:50] LABS: BASOPHILS % 0.4 % (0.0-1.0); EOSINOPHILS # (AUTO) 0.4 (0.0-0.4); EOSINOPHILS % 4.7 % (0.0-6.0); HEMATOCRIT 30.5 % (34.2-44.1); HEMOGLOBIN 9.7 g/dL (12.0-16.0); LYMPHOCYTES # (AUTO) 1.2 (1.0-3.2); LYMPHOCYTES % 14.7 % (18.0-39.1); MEAN CORPUSCULAR HGB CONC 31.8 g/dL (31-35); MEAN CORPUSCULAR VOLUME 87.9 fL (81-99); MONOCYTES # (AUTO) 0.8 (0.2-0.8); MONOCYTES % 10.2 % (4.4-11.3); NEUTROPHILS # (AUTO) 5.3 (2.1-6.9); NEUTROPHILS % 67.6 % (38.7-80.0); PLATELET COUNT 198 x10e3/uL (140-360); RED BLOOD COUNT 3.47 x10e6/uL (3.6-5.1); RED CELL DISTRIBUTION WIDTH 16.7 % (11.7-14.4)
[2018-03-06 06:08] LABS: ANION GAP 12.9 mmol/L (8-16); BLOOD UREA NITROGEN 13 mg/dL (7-26); BUN/CREATININE RATIO 22 (6-25); CALCIUM 9.7 mg/dL (8.4-10.2); CARBON DIOXIDE 30 mmol/L (22-29); CHLORIDE 102 mmol/L (98-107); CREATININE, SERUM 0.58 mg/dL (0.57-1.11); EST GLOMERULAR FILTRATION RATE > 60 ML/MIN (60-); GLUCOSE 125 mg/dL (74-118); MAGNESIUM 1.2 MG/DL (1.3-2.1); POTASSIUM 3.9 mmol/L (3.5-5.1); SODIUM 141 mmol/L (136-145)
--- NOTE | 2018-03-06 06:23 | Diagnostic Imaging Report ---
EXAM: CHEST SINGLE (PORTABLE), AP 1 view INDICATION: Right sided chest tube COMPARISON: AP view of the chest March 05, 2018 FINDINGS: LINES/TUBES: Stable position of tracheostomy and right chest tube LUNGS: Stable bilateral airspace opacities, possibly edema. PLEURA: Small right apical pneumothorax with air gap measuring approximately 1 cm. HEART AND MEDIASTINUM: Stable appearance BONES AND SOFT TISSUES: No acute findings. IMPRESSION: Small right apical pneumothorax. Stable position of right chest tube. Signed by: Dr. Akanksha Ponce M.D. on 03/06/2018 6:20 AM
[2018-03-06] MEDS: LEVOTHYROXINE SODIUM 50 MCG TAB PEG SCH (06:29)
[2018-03-06 07:42] LABS: EOSINOPHILS % (MANUAL) 5 % (0-7); HYPOCHROMASIA SLIGHT; LYMPHOCYTES % (MANUAL) 13 % (19-48); METAMYELOCYTES % (MANUAL) 1 % (0-0); MONOCYTES % (MANUAL) 8 % (3.4-9.0); MYELOCYTES % (MANUAL) 1 % (0-0); NEUTROPHILS % (MANUAL) 72 % (40-74); PLATELET ESTIMATE ADEQUATE; PLATELET MORPHOLOGY COMMENT NORMAL; RBC MORPHOLOGY COMMENT NORMAL
[2018-03-06] MEDS: FAMOTIDINE 20 MG TAB PEG SCH ×2 (08:21→17:21)
[2018-03-06] MEDS: FERROUS SULFATE 325 MG TAB PO SCH ×2 (08:21→17:21)
--- NOTE | 2018-03-06 08:46 | Progress Note ---
DATE: March 06, 2018 SUBJECTIVE: Patient seen and examined today. She appears comfortable. No acute event noted. She still has chest tube placement. PHYSICAL EXAMINATION GENERAL: Appears comfortable, not in acute distress. HEENT: Normocephalic, atraumatic. Sclerae are pink. Conjunctivae are clear. NECK: Tracheostomy in place. CHEST: Clear to auscultation with decreased breath sounds at right lower base. ABDOMEN: Soft, obese. EXTREMITIES: No clubbing, cyanosis, edema. ACCOUNTANT ASSISTANT: Intact. LABS AND IMAGING: Reviewed. ASSESSMENT AND PLAN: Patient with history of multiple medical conditions including chronic respiratory failure, status post tracheostomy, history of anemia, and thrombocytopenia. 1. The patient's current hemoglobin is low, but is stable. Anemia workup did show anemia of chronic disease with iron deficiency anemia. No evidence of any active bleed. Recommendation is close observation. 2. The patient also had thrombocytopenia at admission. Current platelet counts are normal. We will monitor the patient's platelet count very closely. 3. Pneumothorax: The patient is status post chest tube placement. 4. Will continue remaining care. Will follow the patient closely. Job#: [id number]
[2018-03-06] MEDS: METOCLOPRAMIDE HCL 10MG/10ML UDC PEG SCH ×4 (08:51→21:24)
[2018-03-06] MEDS: ALLOPURINOL 100 MG TAB PEG SCH (08:51)
[2018-03-06] MEDS: ASCORBIC ACID 500 MG TAB PO SCH ×2 (08:51→17:21)
[2018-03-06] MEDS: METOPROLOL TARTRATE 25 MG TAB PO SCH ×2 (08:52→21:24)
[2018-03-06] MEDS: FLUTICASONE PROPIONATE NASAL SPRAY NS SCH ×2 (10:09→21:24)
[2018-03-06 11:54] VITALS: BP 122/72
[2018-03-06] MEDS: ACETYLCYSTEINE 20% INHAL SOLN 30 ML VIAL INH SCH ×2 (13:31→19:40)
[2018-03-06 17:45] VITALS: BP 131/72
[2018-03-06 20:00] VITALS: BP_SYST 130; BP_SYST 131; BP_DIAS 68; BP_DIAS 72
[2018-03-06] MEDS: AMITRIPTYLINE HCL 25 MG TAB PEG SCH (21:24)
[2018-03-07] VITALS (7 sets, daily range): BP systolic 122–134; BP diastolic 66–78
[2018-03-07] MEDS: VANCOMYCIN 250MG/5ML ORAL SOLN PO SCH ×4 (00:31→18:49)
[2018-03-07] MEDS ORDERED: DIPHENOXYLATE/ATROPINE TAB PO ONE (00:45)
[2018-03-07] MEDS: GUAIFENESIN/DEXTROMETHORPHAN LIQD 5 ML UDC NG PRN ×2 (01:08→08:11)
[2018-03-07] MEDS: LEVALBUTEROL HCL SOLN NEBU 0.63 MG/3 ML NEB INH SCH ×4 (01:10→19:45)
[2018-03-07] MEDS: IPRATROPIUM BROMIDE 0.02% 2.5 ML NEB NEB SCH ×4 (01:10→19:45)
[2018-03-07] MEDS: INSULIN LISPRO 100 UNIT/1 ML 3ML VIAL SQ SCH ×4 (06:00→18:00)
[2018-03-07 06:04] LABS: BASOPHILS % 0.4 % (0.0-1.0); EOSINOPHILS # (AUTO) 0.5 (0.0-0.4); EOSINOPHILS % 5.3 % (0.0-6.0); HEMATOCRIT 29.5 % (34.2-44.1); HEMOGLOBIN 9.4 g/dL (12.0-16.0); LYMPHOCYTES # (AUTO) 1.5 (1.0-3.2); LYMPHOCYTES % 17.9 % (18.0-39.1); MEAN CORPUSCULAR HGB CONC 31.9 g/dL (31-35); MEAN CORPUSCULAR VOLUME 87.8 fL (81-99); MONOCYTES # (AUTO) 0.8 (0.2-0.8); MONOCYTES % 9.9 % (4.4-11.3); NEUTROPHILS # (AUTO) 5.4 (2.1-6.9); NEUTROPHILS % 63.7 % (38.7-80.0); PLATELET COUNT 171 x10e3/uL (140-360); RED BLOOD COUNT 3.36 x10e6/uL (3.6-5.1); RED CELL DISTRIBUTION WIDTH 16.5 % (11.7-14.4)
[2018-03-07] MEDS: ACETYLCYSTEINE 20% INHAL SOLN 30 ML VIAL INH SCH ×2 (06:20→19:45)
[2018-03-07 06:23] LABS: BLOOD UREA NITROGEN 12 mg/dL (7-26); BUN/CREATININE RATIO 19 (6-25); CALCIUM 9.9 mg/dL (8.4-10.2); CARBON DIOXIDE 32 mmol/L (22-29); CHLORIDE 100 mmol/L (98-107); CREATININE, SERUM 0.62 mg/dL (0.57-1.11); EST GLOMERULAR FILTRATION RATE > 60 ML/MIN (60-); GLUCOSE 119 mg/dL (74-118); MAGNESIUM 1.5 MG/DL (1.3-2.1); SODIUM 139 mmol/L (136-145)
[2018-03-07] MEDS: FAMOTIDINE 20 MG TAB PEG SCH ×2 (06:34→16:14)
[2018-03-07] MEDS: LEVOTHYROXINE SODIUM 50 MCG TAB PEG SCH (06:34)
[2018-03-07 07:23] LABS: EOSINOPHILS % (MANUAL) 4 % (0-7); LYMPHOCYTES % (MANUAL) 18 % (19-48); METAMYELOCYTES % (MANUAL) 1 % (0-0); MONOCYTES % (MANUAL) 5 % (3.4-9.0); NEUTROPHILS % (MANUAL) 72 % (40-74); PLATELET ESTIMATE ADEQUATE; PLATELET MORPHOLOGY COMMENT FEW GIANT
[2018-03-07 07:24] LABS: ANISOCYTOSIS SLIGHT; HYPOCHROMASIA SLIGHT; POIKILOCYTOSIS SLIGHT; RBC MORPHOLOGY COMMENT NORMAL
[2018-03-07] MEDS: FLUTICASONE PROPIONATE NASAL SPRAY NS SCH (08:11)
[2018-03-07] MEDS: FERROUS SULFATE 325 MG TAB PO SCH ×2 (08:11→16:14)
[2018-03-07] MEDS: METOCLOPRAMIDE HCL 10MG/10ML UDC PEG SCH ×2 (08:14→16:02)
[2018-03-07] MEDS: CHOLESTYRAMINE 4 GM PACKET PO SCH ×2 (08:15→16:14)
[2018-03-07] MEDS: ASCORBIC ACID 500 MG TAB PO SCH ×2 (08:15→16:14)
[2018-03-07] MEDS: ALLOPURINOL 100 MG TAB PEG SCH (08:15)
[2018-03-07] MEDS: METOPROLOL TARTRATE 25 MG TAB PO SCH (08:17)
--- NOTE | 2018-03-07 08:53 | Progress Note ---
DATE: March 07, 2018 SUBJECTIVE: Patient seen and examined today. She appears comfortable. She had tracheostomy revision and tracheal dilatation. Tolerated it very well. PHYSICAL EXAMINATION GENERAL: Alert, awake. HEENT: Normocephalic, atraumatic. Sclerae are pink. Conjunctivae are clear. NECK: Supple. CHEST: Decreased sounds on bases. ABDOMEN: Soft. EXTREMITIES: No edema. LABS: Hemoglobin 9, platelet count 171. ASSESSMENT AND PLAN: Patient with history of tracheal stenosis and dementia, admitted with shortness of breath and poor oxygen saturation with mucous plug. Workup consistent with thrombocytopenia. Platelet count has improved. She also has anemia. Hemoglobin is stable. At current, continue current treatment recommendations and hematological intervention. Try to avoid frequent blood draws. Will monitor the patient closely. Job#: [id number]
[2018-03-07] MEDS: ACETAMINOPHEN/CODEINE 300MG - 30MG TAB PEG PRN (12:51)
[2018-03-07] MEDS: ACETAMINOPHEN 325 MG TAB PO PRN (13:05)
[2018-03-08] VITALS (7 sets, daily range): BP systolic 99–146; BP diastolic 62–74
[2018-03-08] MEDS: IPRATROPIUM BROMIDE 0.02% 2.5 ML NEB NEB SCH ×4 (01:32→19:25)
[2018-03-08] MEDS: LEVALBUTEROL HCL SOLN NEBU 0.63 MG/3 ML NEB INH SCH ×4 (01:35→19:25)
[2018-03-08] MEDS: FLUTICASONE PROPIONATE NASAL SPRAY NS SCH ×3 (01:50→21:00)
[2018-03-08] MEDS: VANCOMYCIN 250MG/5ML ORAL SOLN PO SCH ×4 (01:54→18:00)
[2018-03-08] MEDS: METOPROLOL TARTRATE 25 MG TAB PO SCH ×3 (01:57→21:00)
[2018-03-08] MEDS: AMITRIPTYLINE HCL 25 MG TAB PEG SCH ×2 (01:57→21:14)
[2018-03-08] MEDS: METOCLOPRAMIDE HCL 10MG/10ML UDC PEG SCH ×4 (01:57→21:14)
[2018-03-08] MEDS: INSULIN LISPRO 100 UNIT/1 ML 3ML VIAL SQ SCH ×4 (06:00→18:00)
[2018-03-08 06:11] LABS: BASOPHILS % 0.4 % (0.0-1.0); EOSINOPHILS # (AUTO) 0.5 (0.0-0.4); EOSINOPHILS % 4.4 % (0.0-6.0); HEMOGLOBIN 9.8 g/dL (12.0-16.0); LYMPHOCYTES # (AUTO) 1.2 (1.0-3.2); LYMPHOCYTES % 11.2 % (18.0-39.1); MEAN CORPUSCULAR HEMOGLOBIN 27.5 pg (28-32); MEAN CORPUSCULAR HGB CONC 31.6 g/dL (31-35); MEAN CORPUSCULAR VOLUME 87.1 fL (81-99); MONOCYTES # (AUTO) 0.9 (0.2-0.8); MONOCYTES % 8.5 % (4.4-11.3); NEUTROPHILS # (AUTO) 8.1 (2.1-6.9); NEUTROPHILS % 73.7 % (38.7-80.0); PLATELET COUNT 150 x10e3/uL (140-360); RED BLOOD COUNT 3.56 x10e6/uL (3.6-5.1); RED CELL DISTRIBUTION WIDTH 16.3 % (11.7-14.4)
[2018-03-08] MEDS: ACETYLCYSTEINE 20% INHAL SOLN 30 ML VIAL INH SCH ×2 (06:30→19:25)
--- NOTE | 2018-03-08 06:39 | Diagnostic Imaging Report ---
CHEST SINGLE (PORTABLE), 03/08/2018 7:00 AM Technique: CHEST SINGLE (PORTABLE) Comparison: 03/06/2018 Clinical history: Pneumothorax Findings: See Impression Impression: Limited by portable technique and soft tissue attenuation 1. Lines/Tubes: Stable tracheostomy and right chest tube. 2. Stable enlarged cardiomediastinal silhouette and bilateral pulmonary opacities, possibly underlying edema. 3. Slightly decreased small right apical pneumothorax. Signed by: Dr Mago Rosales MD on 03/08/2018 6:36 AM
[2018-03-08] MEDS: LEVOTHYROXINE SODIUM 50 MCG TAB PEG SCH (06:41)
[2018-03-08 07:08] LABS: ANION GAP 13.9 mmol/L (8-16); BLOOD UREA NITROGEN 11 mg/dL (7-26); BUN/CREATININE RATIO 19 (6-25); CALCIUM 9.9 mg/dL (8.4-10.2); CARBON DIOXIDE 27 mmol/L (22-29); CHLORIDE 101 mmol/L (98-107); CREATININE, SERUM 0.59 mg/dL (0.57-1.11); EST GLOMERULAR FILTRATION RATE > 60 ML/MIN (60-); GLUCOSE 123 mg/dL (74-118); POTASSIUM 3.9 mmol/L (3.5-5.1); SODIUM 138 mmol/L (136-145)
[2018-03-08 07:17] LABS: MAGNESIUM 1.2 MG/DL (1.3-2.1)
[2018-03-08] MEDS: FERROUS SULFATE 325 MG TAB PO SCH ×2 (08:00→17:00)
[2018-03-08] MEDS: FAMOTIDINE 20 MG TAB PEG SCH ×2 (08:00→16:30)
--- NOTE | 2018-03-08 08:59 | Progress Note ---
DATE: March 08, 2018 The patient was seen and examined today. The patient appears comfortable. Clinical condition is stable. Current hemoglobin 9.8 and platelet count is normal. PHYSICAL EXAMINATION GENERAL: Alert, awake and not in acute distress. HEENT: Normocephalic and atraumatic. Sclerae pink. Conjunctivae clear. NECK: Supple. CHEST: Decreased breath sounds at the bases. CARDIAC: Regular rate and rhythm. ABDOMEN: Soft. EXTREMITIES: No edema. LABS AND IMAGING: Reviewed. ASSESSMENT AND PLAN: The patient with a history of respiratory failure, status post tracheostomy. I am following for anemia and thrombocytopenia. Current platelet count is stable. Hemoglobin is stable. There is no bleeding. Recommendation to continue current care. Do not recommend any thrombocytic medication. Will follow the patient. Job#: [id number] SORAYA
[2018-03-08] MEDS: BALSAM PERU/CASTOR OIL 60 GM OINT...G. TP PRN ×5 (09:00→18:30)
[2018-03-08] MEDS ORDERED: DIPHENOXYLATE/ATROPINE TAB PO ONE (09:00)
[2018-03-08] MEDS: DIPHENOXYLATE/ATROPINE TAB PO SCH ×2 (09:00→17:00)
[2018-03-08] MEDS: ALLOPURINOL 100 MG TAB PEG SCH (09:00)
[2018-03-08] MEDS: ASCORBIC ACID 500 MG TAB PO SCH ×2 (09:00→17:00)
[2018-03-08] MEDS: CHOLESTYRAMINE 4 GM PACKET PO SCH ×2 (10:04→17:00)
--- NOTE | 2018-03-08 13:59 | Diagnostic Imaging Report ---
PROCEDURE: A single AP view of the chest. COMPARISON: Patients [facility], DX, CHEST SINGLE (PORTABLE), 03/08/2018, 6:08. INDICATIONS: CHEST TUBE REMOVAL FINDINGS: Lines/tubes: Right chest tube has been removed. Tracheostomy tube again noted. Lungs: Unchanged pulmonary edema. Pleura: Small apical pneumothorax present. Heart and mediastinum: The heart remains enlarged. Bones: No acute bony abnormality. IMPRESSION: 1. Status post chest tube removal with small apical pneumothorax present. 2. Unchanged cardiomegaly with pulmonary edema. Sanchez Colin D.O. Dictated by: Sanchez Colin D.O. on 03/08/2018 at 13:42 Electronically approved by: Sanchez Colin D.O. on 03/08/2018 at 13:42
--- NOTE | 2018-03-08 17:18 | Progress Note ---
DATE: March 08, 2018 SUBJECTIVE: The patient feels well. Denies any shortness of breath. OBJECTIVE VITALS: She is afebrile. Stable vital signs. CHEST: Examination did reveal minimal serosanguineous drainage. There is no air leak. Chest x-ray today shows decrease in the size of the small apical pneumothorax. ASSESSMENT: Resolving small apical right pneumothorax following tracheal dilatation for stricture and replacement of tracheostomy tube. The patient has been to water seal for 2 days now. She has not had any air leak now for 4 days. We will at this time in view of the above remove the chest tube and get followup x-rays today and tomorrow. Job#: [id number] SORAYA
[2018-03-08] MEDS: GUAIFENESIN/DEXTROMETHORPHAN LIQD 5 ML UDC NG PRN (18:15)
[2018-03-09] VITALS: BP 115/102
[2018-03-09] MEDS: IPRATROPIUM BROMIDE 0.02% 2.5 ML NEB NEB SCH ×2 (00:45→06:30)
[2018-03-09] MEDS: LEVALBUTEROL HCL SOLN NEBU 0.63 MG/3 ML NEB INH SCH ×2 (00:45→06:30)
[2018-03-09] MEDS: INSULIN LISPRO 100 UNIT/1 ML 3ML VIAL SQ SCH ×3 (06:00→12:00)
[2018-03-09] MEDS: VANCOMYCIN 250MG/5ML ORAL SOLN PO SCH ×2 (06:00)
[2018-03-09 06:03] LABS: BASOPHILS % 0.4 % (0.0-1.0); EOSINOPHILS # (AUTO) 0.5 (0.0-0.4); EOSINOPHILS % 5.1 % (0.0-6.0); HEMATOCRIT 31.5 % (34.2-44.1); LYMPHOCYTES # (AUTO) 1.3 (1.0-3.2); LYMPHOCYTES % 12.1 % (18.0-39.1); MEAN CORPUSCULAR HEMOGLOBIN 27.5 pg (28-32); MEAN CORPUSCULAR HGB CONC 31.7 g/dL (31-35); MEAN CORPUSCULAR VOLUME 86.8 fL (81-99); MONOCYTES # (AUTO) 0.8 (0.2-0.8); MONOCYTES % 7.9 % (4.4-11.3); NEUTROPHILS # (AUTO) 7.6 (2.1-6.9); NEUTROPHILS % 72.6 % (38.7-80.0); PLATELET COUNT 128 x10e3/uL (140-360); RED BLOOD COUNT 3.63 x10e6/uL (3.6-5.1); RED CELL DISTRIBUTION WIDTH 16.4 % (11.7-14.4)
[2018-03-09] MEDS: LEVOTHYROXINE SODIUM 50 MCG TAB PEG SCH (06:06)
--- NOTE | 2018-03-09 06:13 | Diagnostic Imaging Report ---
CHEST SINGLE (PORTABLE), 03/09/2018 9:00 AM Technique: CHEST SINGLE (PORTABLE) Comparison: Previous day Clinical history: Status post chest tube removal Findings: See Impression Impression: 1. Lines/Tubes: Removal of right chest tube. Stable tracheostomy. 2. Stable enlarged cardiomediastinal silhouette. 3. Stable small right apical pneumothorax status post chest tube removal. 4. Persistent perihilar/bibasilar opacities. Signed by: Dr Mago Rosales MD on 03/09/2018 6:08 AM
[2018-03-09] MEDS: ACETYLCYSTEINE 20% INHAL SOLN 30 ML VIAL INH SCH (06:30)
[2018-03-09 06:33] LABS: BLOOD UREA NITROGEN 9 mg/dL (7-26); BUN/CREATININE RATIO 15 (6-25); CALCIUM 9.7 mg/dL (8.4-10.2); CARBON DIOXIDE 27 mmol/L (22-29); CHLORIDE 101 mmol/L (98-107); EST GLOMERULAR FILTRATION RATE > 60 ML/MIN (60-); GLUCOSE 116 mg/dL (74-118); MAGNESIUM 1.3 MG/DL (1.3-2.1); SODIUM 138 mmol/L (136-145)
[2018-03-09] MEDS ORDERED: LOPRESSOR25 MG PO (07:21)
[2018-03-09] MEDS ORDERED: ASCORBIC ACID500 MG PO (07:21)
[2018-03-09] MEDS ORDERED: FERROUS SULFAT325 MG PEG (07:21)
[2018-03-09] MEDS ORDERED: CHOLESTYRAMINE L4 GM PO (07:21)
[2018-03-09] MEDS: DIPHENOXYLATE/ATROPINE TAB PO SCH (08:13)
[2018-03-09] MEDS: CHOLESTYRAMINE 4 GM PACKET PO SCH (08:13)
[2018-03-09] MEDS: METOCLOPRAMIDE HCL 10MG/10ML UDC PEG SCH (08:13)
[2018-03-09] MEDS: FLUTICASONE PROPIONATE NASAL SPRAY NS SCH (08:13)
[2018-03-09] MEDS: FAMOTIDINE 20 MG TAB PEG SCH (08:13)
[2018-03-09] MEDS: ASCORBIC ACID 500 MG TAB PO SCH (08:13)
[2018-03-09] MEDS: FERROUS SULFATE 325 MG TAB PO SCH (08:13)
[2018-03-09] MEDS: ALLOPURINOL 100 MG TAB PEG SCH (08:13)
[2018-03-09 08:15] VITALS: BP 114/71
[2018-03-09] MEDS ORDERED: VANCOCIN HCL250 MG PO (08:23)
--- NOTE | 2018-03-09 08:47 | Progress Note ---
DATE: March 09, 2018 The patient was seen and examined today. She appears comfortable. Clinical condition is improving. No worsening new events. Likely remove chest tube today. PHYSICAL EXAMINATION GENERAL: Alert, awake and communicative. HEENT: Normocephalic and atraumatic. Sclerae pink. Conjunctivae clear. NECK: Supple. CHEST: Decreased breath sounds at the bases. CARDIOVASCULAR: Regular rate. ABDOMEN: Soft. EXTREMITIES: No edema. LABS AND IMAGING: Reviewed. ASSESSMENT AND PLAN: The patient with a history of multiple medical conditions apparently following for: 1. Thrombocytopenia: Current platelet count is stable. 2. She has anemia: Hemoglobin is stable now with no evidence of any worsening symptoms. Clinical condition is improving. Continue remaining care. Will follow the patient closely. Job#: [id number] SORAYA
[2018-03-09 08:51] VITALS: BP 114/71
[2018-03-09] MEDS: METOPROLOL TARTRATE 25 MG TAB PO SCH (09:00)
[2018-03-09] MEDS: LORAZEPAM 0.5 MG TAB PO PRN (09:13)
[2018-03-09 12:03] VITALS: BP 111/63
--- NOTE | 2018-03-09 16:53 | Discharge Summary ---
ADMISSION DIAGNOSES 1. Respiratory failure associated with hypoxia. 2. Mucous plug. 3. Thrombocytopenia. 4. Chronic tracheostomy. 5. Respiratory failure. 6. Obesity. DISCHARGE DIAGNOSES 1. Respiratory failure associated with hypoxia. 2. Mucous plug. 3. Thrombocytopenia. 4. Chronic tracheostomy. 5. Respiratory failure. 6. Obesity. 7. Hypomagnesemia. 8. Gastrointestinal bleed. 9. Ruled out Clostridium difficile. 10. Anemia. HISTORY: The patient has a history of a trach with respiratory failure associated with tracheal stenosis, type-2 diabetes, asthma, recurrent pneumonia, hypertension, history of C diff, UTI. Surgical history of hysterectomy, tracheostomy, and PEG tube. She also had a left hip replacement. HOSPITAL COURSE: This 68-year-old female came from [facility] with increasing shortness of breath and difficulty breathing. At baseline, she has a trach. The patient's oxygen saturation was less than 80%, and she was tachycardic with a heart rate of 117. On admission, the bookkeeping machine operator that follows her at the alf was there. He says that she gets frequent mucous plugs and has had rapid responses due to that. ENT was consulted per pulmonary request as the patient had many mucous plugs and tracheal stenosis. ENT was wanting to place an 8-Chinese XLT trach instead. On 03/02/2018, the patient had a rapid response. Initially, the physician that showed up for the rapid response said the patient was difficult to bag via trach, but then once the large mucous plug came out, saturations went up, and she was feeling much better as the dyspnea had resolved. Again, about 11:15 that same night on 03/02/2018, another rapid response was called because the patient started coughing, and her trach came out. She had a 6 Chinese A #20 chest tube was placed by surgery. She had this in place for about 4 to 5 days before surgery felt comfortable enough to remove the chest tube. The patient also had blood cultures that were negative, urine culture that was negative, and sputum cultures--the first one showed pseudomonas on 02/26/2018, and then on 03/04/2018 she had one that showed enterobacter and MRSA. Per ID, the patient was colonized and did not require antibiotics as she was afebrile, and her white count was normal. The patient is now breathing better than ever and able to clear secretions. Her lung sounds are much better with the bigger trach in place. On the day of discharge, WBC was , platelets 128. Sodium 138, potassium 4.0, creatinine 0.6, BUN 9, GFR over 60. The patient had diarrhea as she was tube feed; but we checked the C. diff 4 times and it was negative every 4. She did come up with a positive stool for blood, but her hemoglobin was stable. GI felt no need to do any intervention. The patient will discharge back to [facility]. The patient agrees with the discharge plan and is ready to leave. All consults are on board with discharge as well. Dictated by: Pilar Rollins NP ILAN SALCEDO MD Job#: [id number]
== END 2018-03-09 13:35 | DRG 166 ==
LOC: ER 09:43 → ERHOLD 14:05 → IMCU 14:07 → ICU 16:06 → OBSVTOIN 02-26 13:34 → ACU 02-27 11:54 → ICU 02-27 11:55 → MED/SURG2 03-01 12:35 → ICU 03-02 22:06 → IMCU 03-05 10:22
PROVIDERS: ADMIT Internal Medicine; ATTEND Internal Medicine
PROC: 5A1935Z Respiratory Ventilation, Less than 24 Consecutive Hours (ICD-10-PCS; 2018-02-27)
PROC: 0B21XFZ Change Tracheostomy Device in Trachea, External Approach (ICD-10-PCS; 2018-03-03)
PROC: 0W9B30Z Drainage of Left Pleural Cavity with Drainage Device, Percutaneous Approach (ICD-10-PCS; 2018-03-03)
PROC: 0B718ZZ Dilation of Trachea, Via Natural or Artificial Opening Endoscopic (ICD-10-PCS; principal; 2018-03-03 15:00)
DX: J96.21 Acute and chronic respiratory failure with hypoxia (principal); J69.0 Pneumonitis due to inhalation of food and vomit; J95.03 Malfunction of tracheostomy stoma; D69.3 Immune thrombocytopenic purpura; K92.2 Gastrointestinal hemorrhage, unspecified; J95.811 Postprocedural pneumothorax; T17.990A Other foreign object in respiratory tract, part unspecified in causing asphyxiation, initial encounter; E66.01 Morbid (severe) obesity due to excess calories; E11.9 Type 2 diabetes mellitus without complications; I10 Essential (primary) hypertension; Z88.0 Allergy status to penicillin; E83.42 Hypomagnesemia; D64.9 Anemia, unspecified; Z87.440 Personal history of urinary (tract) infections; Z74.01 Bed confinement status; Z88.8 Allergy status to other drugs, medicaments and biological substances; Z96.642 Presence of left artificial hip joint; Z83.3 Family history of diabetes mellitus; F03.90 Unspecified dementia, unspecified severity, without behavioral disturbance, psychotic disturbance, mood disturbance, and anxiety; R53.81 Other malaise; D69.59 Other secondary thrombocytopenia; D63.8 Anemia in other chronic diseases classified elsewhere; D50.9 Iron deficiency anemia, unspecified; E03.9 Hypothyroidism, unspecified; F41.9 Anxiety disorder, unspecified; R00.0 Tachycardia, unspecified; E87.6 Hypokalemia; B96.5 Pseudomonas (aeruginosa) (mallei) (pseudomallei) as the cause of diseases classified elsewhere; J39.8 Other specified diseases of upper respiratory tract; B95.62 Methicillin resistant Staphylococcus aureus infection as the cause of diseases classified elsewhere; B96.89 Other specified bacterial agents as the cause of diseases classified elsewhere; Z93.1 Gastrostomy status; Z68.39 Body mass index [BMI] 39.0-39.9, adult
CPT/HCPCS: 36415; 36600; 70490; 71045; 71260; 80048; 80053; 80061; 81001; 82270; 82306; 82550; 82553; 82607; 82728; 82746; 82805; 82948; 83036; 83540; 83605; 83735; 83880; 84100; 84439; 84443; 84466; 84484; 84550; 85025; 85610; 85730; 87040; 87070; 87086; 87186; 87205; 87493; 93005; 93306; 94002; 94003; 94640; 96372; 97139; 99285; G0378; J1160; J1940; J1956; J2060; J2185; J2250; J7030; J7040; J7050; Q9967

== ENCOUNTER 2018-03-25 21:47 | Inpatient (IN) | payer MEDICARE, OTHER ==
[~2018-03-25] VITALS: Ht 320 cm; Wt 108.4 kg
[~2018-03-25 21:47] MED LIST changes: +ASCORBIC ACID500 MG PO; +FERROUS SULFAT325 MG PEG; +FLAGYL250 MG PEG; +LOPRESSOR25 MG PO; +LORAZEPAM0.5 MG PEG; +NOVOLOG SS; +PEPCID20 MG PEG; +POTASSIUM40 MEQ/15 PEG; +PROBIOTIC & AC1 EACH PEG; +REGLAN5 MG PEG; +TYLENOL WITH C1 EACH PO; +VANCOCIN HCL250 MG PO
[2018-03-25 22:48] LABS: BASOPHILS # (AUTO) 0.1 (0.0-0.1); BASOPHILS % 0.5 % (0.0-1.0); EOSINOPHILS # (AUTO) 1.1 (0.0-0.4); EOSINOPHILS % 9.6 % (0.0-6.0); HEMOGLOBIN 12.2 g/dL (12.0-16.0); LYMPHOCYTES # (AUTO) 1.9 (1.0-3.2); LYMPHOCYTES % 16.2 % (18.0-39.1); MEAN CORPUSCULAR HEMOGLOBIN 28.4 pg (28-32); MEAN CORPUSCULAR HGB CONC 32.1 g/dL (31-35); MEAN CORPUSCULAR VOLUME 88.6 fL (81-99); MONOCYTES # (AUTO) 1.1 (0.2-0.8); MONOCYTES % 9.3 % (4.4-11.3); NEUTROPHILS # (AUTO) 7.5 (2.1-6.9); PLATELET COUNT 70 x10e3/uL (140-360); RED BLOOD COUNT 4.29 x10e6/uL (3.6-5.1); RED CELL DISTRIBUTION WIDTH 16.6 % (11.7-14.4)
[2018-03-25 23:00] LABS: INR 1.07; PROTHROMBIN TIME 13.1 seconds (11.9-14.5)
--- NOTE | 2018-03-25 23:00 | Diagnostic Imaging Report ---
EXAM: CHEST SINGLE (PORTABLE), AP 1 view INDICATION: Shortness of breath COMPARISON: AP view of the chest March 09, 2018 FINDINGS: LINES/TUBES: Tracheostomy tube. LUNGS: No consolidations or edema. Mild subsegmental atelectasis. PLEURA: No effusions or pneumothorax. HEART AND MEDIASTINUM: No interval change compared to prior exam. BONES AND SOFT TISSUES: Degenerative changes of the bilateral shoulders and chronic right humeral head deformity. IMPRESSION: No significant interval change in appearance of the chest. Signed by: Dr. Akanksha Ponce M.D. on 03/25/2018 10:56 PM
[2018-03-25 23:01] LABS: PARTIAL THROMBOPLASTIN TIME 27.8 seconds (23.8-35.5)
[2018-03-25 23:08] LABS: ALBUMIN 3.7 g/dL (3.5-5.0); ALBUMIN/GLOBULIN RATIO 0.8 (0.8-2.0); ANION GAP 18.9 mmol/L (8-16); CALCIUM 11.4 mg/dL (8.4-10.2); CREATININE, SERUM 1.02 mg/dL (0.57-1.11); POTASSIUM 3.9 mmol/L (3.5-5.1)
[2018-03-25] MEDS ORDERED: DEXTROSE 50% SYRINGE 50 ML IV PRN (23:45)
[2018-03-26] VITALS (47 sets, daily range): BP systolic 73–129; BP diastolic 32–82
[2018-03-26] MEDS ORDERED: LORAZEPAM INJ 2 MG/ML VIAL IV PRN
[2018-03-26] MEDS: SODIUM CHLORIDE 0.9% 1000ML 1,000 ML IV SCH ×3 (00:02→15:33)
[2018-03-26] MEDS: INSULIN REGULAR, HUMAN 100 UNIT/1 ML 3ML VIAL SQ SCH ×3 (00:30→11:30)
[2018-03-26] MEDS ORDERED: CALCIUM OTC XX (02:10)
[2018-03-26] MEDS: LEVALBUTEROL HCL SOLN NEBU 1.25 MG/3 ML NEB INH SCH ×4 (02:45→19:03)
[2018-03-26 04:52] LABS: BASOPHILS % 0.4 % (0.0-1.0); EOSINOPHILS # (AUTO) 0.8 (0.0-0.4); EOSINOPHILS % 8.3 % (0.0-6.0); HEMATOCRIT 33.1 % (34.2-44.1); HEMOGLOBIN 10.3 g/dL (12.0-16.0); LYMPHOCYTES # (AUTO) 1.5 (1.0-3.2); LYMPHOCYTES % 16.6 % (18.0-39.1); MEAN CORPUSCULAR HEMOGLOBIN 28.1 pg (28-32); MEAN CORPUSCULAR HGB CONC 31.1 g/dL (31-35); MEAN CORPUSCULAR VOLUME 90.4 fL (81-99); MONOCYTES # (AUTO) 1.1 (0.2-0.8); MONOCYTES % 11.5 % (4.4-11.3); NEUTROPHILS # (AUTO) 5.8 (2.1-6.9); NEUTROPHILS % 62.8 % (38.7-80.0); PLATELET COUNT 61 x10e3/uL (140-360); RED BLOOD COUNT 3.66 x10e6/uL (3.6-5.1); RED CELL DISTRIBUTION WIDTH 16.3 % (11.7-14.4)
[2018-03-26 05:14] LABS: ALANINE AMINOTRANSFERASE 14 IU/L (0-55); ALBUMIN 3.1 g/dL (3.5-5.0); ALBUMIN/GLOBULIN RATIO 0.9 (0.8-2.0); ALKALINE PHOSPHATASE 77 IU/L (40-150); ANION GAP 13.6 mmol/L (8-16); BLOOD UREA NITROGEN 25 mg/dL (7-26); BUN/CREATININE RATIO 29 (6-25); CALCIUM 10.6 mg/dL (8.4-10.2); CARBON DIOXIDE 30 mmol/L (22-29); CHLORIDE 96 mmol/L (98-107); CREATININE, SERUM 0.87 mg/dL (0.57-1.11); EST GLOMERULAR FILTRATION RATE > 60 ML/MIN (60-); GLUCOSE 136 mg/dL (74-118); POTASSIUM 3.6 mmol/L (3.5-5.1); SODIUM 136 mmol/L (136-145)
--- NOTE | 2018-03-26 09:19 | Consultation ---
DATE OF CONSULTATION: March 26, 2018 OTOLARYNGOLOGY CONSULTATION HISTORY OF PRESENT ILLNESS: I was kindly asked to see this 68-year-old woman for evaluation of a dislodged tracheostomy tube. Patient has a history of subglottic and distal tracheal stenosis and was recently taken to the operating room where the distal portion of the trachea was dilated and a number 8 Shiley XLT distal tracheostomy tube placed. The tracheostomy tube became dislodged and was unable to be replaced in the emergency department. PAST MEDICAL HISTORY AND PAST SURGICAL HISTORY: Pertinent as above. PHYSICAL EXAMINATION: The tracheostomy tube was approximately 3 cm out of the tracheostomy site. Tracheostomy sutures were in place. The tracheostomy tube was canted off to the right side. After moving the tracheostomy tube to the midline, the tracheostomy tube was gently placed through the stenotic segment and returned to its correct position. Tracheostomy sutures were removed. ASSESSMENT: Dislodged tracheostomy tube successfully replaced at bedside. PLAN: 1. No additional otolaryngology treatment indicated. 2. Cleared for discharge from otolaryngology standpoint. Job#: [id number] KODY
[2018-03-26] MEDS: BALSAM PERU/CASTOR OIL 60 GM OINT...G. TP SCH ×2 (10:55→17:00)
--- NOTE | 2018-03-26 14:55 | Consultation ---
DATE OF CONSULTATION: PULMONARY CONSULTATION REASON FOR CONSULTATION: ICU management, tracheostomy. HISTORY OF PRESENT ILLNESS: Ms. Lopez is a 68-year-old female. She is well known to me from previous admission. She has severe tracheal stenosis that resulted in tracheostomy. Her tracheostomy has been revised during last admission when she was admitted to [facility] in February. She was sent back on the assisted because her tracheostomy tube was hanging out from the neck and was not all the way in. She denies any complaints of chest pain, nausea, vomiting, diarrhea or focal weakness. She is breathing well. REVIEW OF SYSTEMS: Negative except as in history of present illness. PAST MEDICAL HISTORY: Tracheal stenosis, chronic tracheostomy, hypertension. PAST SURGICAL HISTORY: Tonsillectomy, hysterectomy, PEG tube, left hip replacement. FAMILY AND SOCIAL HISTORY: Diabetes on father's side. PHYSICAL EXAMINATION: VITALS: Temperature 98.8, pulse of 93, blood pressure 103/54, respiratory rate of 18. HEENT: Atraumatic, normocephalic. NECK: Supple. CHEST: Clear to auscultation bilaterally. No wheezing. Tracheostomy is in good place. It was adjusted by Dr. Hill. ABDOMEN: Soft, nontender. EXTREMITIES: No pedal edema. NEUROLOGICALLY: Awake and alert, following commands. LABORATORY DATA: White count of 9000, hemoglobin 10.3, platelets 61. Sodium 136, potassium 3.6, chloride 96, BUN 25, creatinine 0.7. CHEST X-RAY: Was done in the emergency room, which is normal. ASSESSMENT AND PLAN: Janis Lopez is a 68-year-old female known to me from previous admission. She has severe tracheal stenosis, status post tracheostomy and revision of tracheostomy during last admission. PLAN: 1. Tracheostomy tube was dislodged, which was repositioned by Dr. Hill. Currently stable. Continue the patient on trach collar oxygen. She can be transferred out to [facility] for further care. 2. Thrombocytopenia which is chronic. Last time Dr. Willis evaluated the patient. 3. Continue the patient on nebulizer treatment. Job#: [id number] EV
[2018-03-26] MEDS ORDERED: LORAZEPAM2 MG/1 M1 IV (15:39)
[2018-03-26] MEDS ORDERED: VENELEX OINTMEN60 GM TP (15:39)
[2018-03-26] MEDS ORDERED: DEXTROSE 50%-WA50 M1 IV (15:39)
[2018-03-26] MEDS ORDERED: HUMULIN R100 UNIT/2 SQ (15:39)
[2018-03-26] MEDS ORDERED: XOPENEX1.25 MG/3 INH (15:39)
--- NOTE | 2018-03-26 16:53 | History and Physical ---
PRIMARY CARE PHYSICIAN: Dr. Loc Stein. HISTORY OF PRESENT ILLNESS: Ms. Lopez is a pleasant 68-year-old female that was admitted via the emergency department from [facility] yesterday with complaints of partially dislodged tracheostomy and intermittent shortness of breath. This was not alleviated or worsened by anything. Per documentation from the emergency department physician, she had no loss of appetite, weight loss, headache, visual disturbance, fatigue, muscle ache, weakness, or decrease in urinary output. The patient is currently seen in ICU 191. She was seen earlier by Dr. Hill with ENT, and he reinserted the size 8 Shiley tracheostomy. She has family at the bedside and appears relaxed. PAST MEDICAL HISTORY: Tracheostomy, respiratory failure associated with tracheal stenosis, dislodged tracheostomy approximately January 2018, type 2 diabetes mellitus and on insulin therapy, asthma, chronic bronchitis, recurrent pneumonia, hypertension, C. difficile colitis, chronic kidney disease, urinary tract infections, gastroesophageal reflux disease, hypothyroidism, peripheral vascular disease, neuropathy and gout. PAST SURGICAL HISTORY: Tonsillectomy, hysterectomy, tracheostomy placement, PEG tube placement, left hip replacement. SOCIAL HISTORY: Denies a history of smoking, alcohol or illicit drugs. She came from [facility]. PAST FAMILY HISTORY: Noncontributory. ALLERGIES: PENICILLIN, HEPARIN, TITANIUM. [facility] MEDICATIONS: Reviewed. REVIEW OF SYSTEMS: Currently the patient denies any chills, any bleeding. She denies headache, dizziness, shortness of breath, cough, phlegm, chest pain, palpitations, nausea, vomiting, abdominal pain. She does indicate that she has persistent diarrhea. PHYSICAL EXAMINATION VITAL SIGNS: Temperature 98.8, heart rate 93, blood pressure 90/52, respirations 20, oxygen saturation 99%. Weight 239 pounds. GENERAL: Patient is lying supine in bed. No acute distress. Is able to communicate nonverbally. She readily follows simple commands, is talking and laughing with her family. HEENT: Normocephalic, atraumatic. Sclera is anicteric. NECK: Size 8 Shiley tracheostomy is in place. PULMONARY: Lung sounds generally clear to auscultation, diminished in the bases. Currently on humidified oxygen with FIO2 of 35%. CARDIOVASCULAR: Regular rate and rhythm. No murmur appreciated. Heart rate in the 90s. ABDOMEN: Bowel sounds positive. Soft, nontender. Morbidly obese. Feeding tube in place with dressing covering. EXTREMITIES: No clubbing, cyanosis or notable swelling. No edema noted. INTEGUMENTARY: She has excoriated area tacos-pannus and excoriated gluteal folds surrounding the anus. NEUROLOGIC: Awake, alert, oriented to person, place, time and situation. Nonfocal. LABORATORY DATA: On admission WBC 11.66, hemoglobin 12.2, hematocrit 38, platelets 70,000. Today WBC 9.18, hemoglobin 10.3, hematocrit 33.1, platelets 61,000. Yesterday PT 13.1, INR 1.07. On admission sodium 136, potassium 3.9, chloride 94, CO2 27, BUN 26, creatinine 1.02, GFR 54, glucose 146, calcium 11.4. Total bilirubin 0.5, AST 28, ALT 16, alkaline phosphatase 86. Total protein 8.1, albumin 3.7. Today sodium 136, potassium 3.6, chloride 96, CO2 30, anion gap 13.6, BUN 25, creatinine 0.87, GFR greater than 60, glucose 136, calcium 10.6. Total bilirubin 0.5, AST 17, ALT 14, alkaline phosphatase 77. Total protein 6.6, albumin 3.1. DIAGNOSTIC STUDIES: Chest x-ray completed on admission showed no significant interval change in appearance of the chest. There are some degenerative changes in bilateral shoulders and chronic right humeral head deformity. She had a 12-lead EKG which showed sinus tachycardia with a right bundle branch block and heart rate of 128 on admission. IMPRESSION 1. Partially dislodged tracheostomy. Status post reinsertion by ENT on March 26, 2018. 2. Tracheal stenosis. 3. Chronic bronchitis and asthma with shortness of breath, improved. 4. Hypertension. 5. Type 2 diabetes mellitus. 6. Gastroesophageal reflux disease. 7. Chronic diarrhea and on tube feeds. 8. Hypercalcemia. 9. Thrombocytopenia, chronic. 10. Gastrostomy tube status. 11. Hypothyroidism. 12. jail resident. 13. Morbid obesity. 14. Prophylaxis. Pepcid for peptic ulcer disease prophylaxis and SCDs for DVT prophylaxis. Since the replacement of the tracheostomy by ENT this morning, the patient is much improved. She will likely be able to discharge today to the [facility]. Will gain further input from talking to Pulmonology. She has been checked several times for C. difficile colitis in the past. Her chronic diarrhea is likely secondary to her tube feeds. She may need further workup for her hypercalcemia and thrombocytopenia at the detention. Leukocytosis has resolved. Continue wound care to excoriations. Dictated by: Kei Bundy NP Job#: [id number] EV
--- NOTE | 2018-03-27 14:16 | Discharge Summary ---
PERTINENT HISTORY AND PHYSICAL FINDINGS/HISTORY OF PRESENT ILLNESS: The patient is a pleasant 68-year-old female who arrived yesterday from [facility] with some mild shortness of breath, but mainly for a dislodged tracheostomy tube. Tracheostomy was reinserted by Dr. Rufus Hill with ENT today on March 26 on the size [address] trache[address] without sutures[address] Kendell Augustin with pulmonology was also consulted. The patient was seen in ICU 191 in no acute distress. According to the family, the tracheostomy tube had come out approximately 1 to 2 inches with some bleeding around the site. Today, with the patient seen and her review of systems, her only complaint was persistent diarrhea and she has been receiving tube feeds. Her past medical history is significant for tracheostomy status with history of respiratory failure associated with tracheal stenosis, previous dislodged tracheostomy in approximately January 2018, type 2 diabetes mellitus and on insulin therapy, chronic bronchitis, asthma, recurrent pneumonia, hypertension, C. difficile colitis, urinary tract infection, gastroesophageal reflux disease, chronic kidney disease, hypothyroidism, peripheral vascular disease, neuropathy and gout, gastrostomy tube placement, hysterectomy, left hip replacement, tonsillectomy. ALLERGIES: PENICILLIN, HEPARIN AND TITANIUM. Overall, her labs were within normal limits. On the day of discharge, her hemoglobin was 10.3 and hematocrit 33.1, calcium 10.6, was previously 11.4, platelets 61,000. Total protein 6.6, albumin 3.1. She had had a chest x-ray and 12-lead EKG. The chest x-ray was essentially within normal limits. The 12-lead EKG had shown right bundle branch block and sinus tachycardia with heart rate of 128, but currently heart rate in the 90s. Please see history and physical for complete review of systems and physical examination. Patient will be discharged back to [facility] today. She is to continue on the same tube feeds for nutritional support. Activity level as tolerated. Follow up with her PCP there. ADMISSION AND DISCHARGE DIAGNOSES: Include, 1. Partially dislodged tracheostomy status post reinsertion by ear, nose, throat on March 26, 2018. 2. Tracheal stenosis. 3. Chronic bronchitis and asthma with shortness of breath, improved. 4. Hypertension. 5. Type 2 diabetes mellitus. 6. Gastroesophageal reflux disease. 7. Chronic diarrhea, on tube feedings. 8. Hypercalcemia. 9. Thrombocytopenia. 10. Gastrostomy tube status. 11. Hypothyroidism. 12. residential resident. 13. Morbid obesity. Dictated by FRANCESCO Hutchins. ILAN SALCEDO MD Job#: [id number] GE
== END 2018-03-26 21:45 | DRG 206 ==
LOC: ER 21:47 → ICU 23:55
PROVIDERS: ADMIT Internal Medicine; ATTEND Internal Medicine
PROC: 0BW1XFZ Revision of Tracheostomy Device in Trachea, External Approach (ICD-10-PCS; principal; 2018-03-26)
DX: J95.03 Malfunction of tracheostomy stoma (principal); J44.9 Chronic obstructive pulmonary disease, unspecified; I10 Essential (primary) hypertension; E11.9 Type 2 diabetes mellitus without complications; K21.9 Gastro-esophageal reflux disease without esophagitis; K52.9 Noninfective gastroenteritis and colitis, unspecified; E83.52 Hypercalcemia; D69.6 Thrombocytopenia, unspecified; Z93.1 Gastrostomy status; E03.9 Hypothyroidism, unspecified; E66.01 Morbid (severe) obesity due to excess calories; Z88.0 Allergy status to penicillin; Z88.8 Allergy status to other drugs, medicaments and biological substances; Z91.09 Other allergy status, other than to drugs and biological substances; J39.8 Other specified diseases of upper respiratory tract
CPT/HCPCS: 36415; 71045; 80053; 82948; 85025; 85610; 85730; 93005; 94640; 96361; 99285; J7030

== ENCOUNTER 2018-04-07 13:14 | Emergency (ER) | payer MEDICARE, OTHER ==
[~2018-04-07] VITALS: Ht 320 cm; Wt 108.4 kg
[~2018-04-07 13:14] MED LIST changes: +CALCIUM OTC XX; +DEXTROSE 50%-WA50 M1 IV; +LORAZEPAM2 MG/1 M1 IV; +XOPENEX1.25 MG/3 INH
[2018-04-07] MEDS ORDERED: LORAZEPAM INJ 2 MG/ML VIAL IM ONE (13:30)
[2018-04-07] MEDS ORDERED: SODIUM CHLORIDE 0.9% 1000ML 1,000 ML IV SCH (14:24)
[2018-04-07] MEDS ORDERED: ALBUTEROL SULF 0.083% NEB SOLN 3 ML NEB NEB SCH (14:30)
--- NOTE | 2018-04-07 16:58 | Consultation ---
DATE OF CONSULTATION: April 07, 2018 HISTORY OF PRESENT ILLNESS: I was kindly asked to see this 68-year-old woman known to me from previous evaluation and treatment. She has a history of tracheal stenosis which has required a #8 Shiley XLT distal tracheostomy tube for ventilation. She previously had a #6 tube and had recurring respiratory arrest. She presented with dislodged tracheostomy tube and the emergency department could not replace the tracheostomy tube. PAST MEDICAL HISTORY AND PAST SURGICAL HISTORY: Reviewed in detail in the chart. On examination, the tracheostomy tube was dislodged approximately 2 cm. The tracheostomy tube was easily reinserted to its anatomically correct position and trach ties were tightened. ASSESSMENT: Tracheal stenosis, status post dislodged tracheostomy tube. PLAN: 1. Return to jail. 2. Patient and family were counseled regarding the necessity for keeping the tracheostomy ties tighter. Job#: [id number]
[2018-04-07 17:59] VITALS: BP 107/52
== END 2018-04-07 18:25 | disposition home or self-care (01) ==
LOC: ER 13:14
DX: Z43.0 Encounter for attention to tracheostomy (principal); J39.8 Other specified diseases of upper respiratory tract; I10 Essential (primary) hypertension; E11.9 Type 2 diabetes mellitus without complications; E03.9 Hypothyroidism, unspecified; N18.9 Chronic kidney disease, unspecified; K21.9 Gastro-esophageal reflux disease without esophagitis
CPT/HCPCS: 99284; J2060

== ENCOUNTER 2018-04-11 01:01 | Inpatient (IN) | payer MEDICARE, OTHER ==
[2018-04-11] VITALS (7 sets, daily range): BP systolic 113–162; BP diastolic 53–84
[~2018-04-11] VITALS: Ht 172.7 cm; Wt 109.8 kg
[2018-04-11 01:53] LABS: BASOPHILS % 0.2 % (0.0-1.0); EOSINOPHILS # (AUTO) 0.4 (0.0-0.4); EOSINOPHILS % 3.2 % (0.0-6.0); HEMOGLOBIN 11.8 g/dL (12.0-16.0); LYMPHOCYTES # (AUTO) 1.4 (1.0-3.2); LYMPHOCYTES % 12.6 % (18.0-39.1); MEAN CORPUSCULAR HEMOGLOBIN 28.6 pg (28-32); MEAN CORPUSCULAR HGB CONC 32.8 g/dL (31-35); MEAN CORPUSCULAR VOLUME 87.2 fL (81-99); MONOCYTES # (AUTO) 0.9 (0.2-0.8); MONOCYTES % 8.1 % (4.4-11.3); NEUTROPHILS # (AUTO) 8.6 (2.1-6.9); NEUTROPHILS % 75.5 % (38.7-80.0); RED BLOOD COUNT 4.13 x10e6/uL (3.6-5.1); RED CELL DISTRIBUTION WIDTH 14.8 % (11.7-14.4)
[2018-04-11 02:07] LABS: INR 1.04; PARTIAL THROMBOPLASTIN TIME 24.7 seconds (23.8-35.5); PROTHROMBIN TIME 12.8 seconds (11.9-14.5)
[2018-04-11 02:11] LABS: ANION GAP 16.3 mmol/L (8-16); BLOOD UREA NITROGEN 23 mg/dL (7-26); BUN/CREATININE RATIO 28 (6-25); CALCIUM 10.3 mg/dL (8.4-10.2); CARBON DIOXIDE 23 mmol/L (22-29); CHLORIDE 99 mmol/L (98-107); CREATININE, SERUM 0.81 mg/dL (0.57-1.11); EST GLOMERULAR FILTRATION RATE > 60 ML/MIN (60-); GLUCOSE 108 mg/dL (74-118); POTASSIUM 4.3 mmol/L (3.5-5.1); SODIUM 134 mmol/L (136-145)
--- NOTE | 2018-04-11 02:15 | Diagnostic Imaging Report ---
EXAM: CHEST SINGLE (PORTABLE), AP 1 view INDICATION: Shortness of breath COMPARISON: AP view the chest March 25, 2018 FINDINGS: LINES/TUBES: Stable appearance of tracheostomy. LUNGS: Scattered atelectatic changes. PLEURA: No effusions or pneumothorax. HEART AND MEDIASTINUM: Stable appearance. BONES AND SOFT TISSUES: Advanced degenerative changes of the bilateral shoulders. Partially visualized chronic deformity of the right humeral head. IMPRESSION: Stable appearance of the chest. Signed by: Dr. Akanksha Ponce M.D. on 04/11/2018 2:12 AM
[2018-04-11 02:34] LABS: PLATELET ESTIMATE MARKEDLY DECREASED; PLATELET MORPHOLOGY COMMENT FEW LARGE; RBC MORPHOLOGY COMMENT NORMAL
[2018-04-11 02:35] LABS: PLATELET COUNT 44 x10e3/uL (140-360)
[2018-04-11] MEDS ORDERED: ONDANSETRON HCL INJ 2 MG/ML VIAL IV PRN (03:45)
[2018-04-11] MEDS ORDERED: MORPHINE SULFATE 2 MG/ML SYR IV PRN (03:45)
[2018-04-11] MEDS ORDERED: SODIUM CHLORIDE FLUSH 10 ML SYR INJ PRN (03:45)
[2018-04-11] MEDS ORDERED: D5.45%NS/KCL 20MEQ 1,000 ML IV ONE (03:45)
[2018-04-11] MEDS ORDERED: ACETAMINOPHEN 325 MG TAB PO PRN (11:45)
[2018-04-11] MEDS ORDERED: ACETAMINOPHEN/CODEINE 300MG - 30MG TAB PO PRN (11:45)
[2018-04-11] MEDS ORDERED: CHOLESTYRAMINE 4 GM PACKET PO PRN ×2 (11:45)
[2018-04-11] MEDS ORDERED: DEXTROSE 50% SYRINGE 50 ML IV PRN ×2 (11:45→12:00)
[2018-04-11] MEDS ORDERED: LORAZEPAM 0.5 MG TAB PEG PRN (11:45)
[2018-04-11] MEDS ORDERED: SIMETHICONE 80 MG CHEW PO PRN (11:45)
[2018-04-11] MEDS ORDERED: LEVALBUTEROL HCL SOLN NEBU 0.63 MG/3 ML NEB INH SCH (13:00)
[2018-04-11] MEDS: NYSTATIN 15 GM POWDER UD BTL TOP SCH (13:15)
[2018-04-11] MEDS: GUAIFENESIN 600 MG TAB PO SCH ×2 (13:15→18:02)
[2018-04-11] MEDS: DICYCLOMINE HCL 20 MG TAB PO SCH ×3 (13:15→21:00)
[2018-04-11] MEDS: NEOMYCIN/POLYMYXIN/BACITRACIN 15 GM TUBE TOP SCH ×2 (15:05→21:00)
[2018-04-11] MEDS: LEVALBUTEROL HCL SOLN NEBU 0.63 MG/3 ML NEB INH SCH ×3 (15:23→23:50)
[2018-04-11] MEDS: IPRATROPIUM BROMIDE 0.02% 2.5 ML NEB NEB SCH ×2 (15:23→19:05)
[2018-04-11] MEDS: INSULIN REGULAR, HUMAN 100 UNIT/1 ML 3ML VIAL SQ SCH ×2 (16:30→20:37)
[2018-04-11] MEDS ORDERED: INSULIN REGULAR, HUMAN 100 UNIT/1 ML 3ML VIAL SQ SCH (16:30)
[2018-04-11] MEDS ORDERED: FERROUS SULFATE 325 MG TAB PEG SCH (17:00)
[2018-04-11] MEDS: FAMOTIDINE 20 MG TAB PEG SCH (17:36)
[2018-04-11] MEDS: BALSAM PERU/CASTOR OIL 60 GM OINT...G. TP SCH (17:36)
[2018-04-11] MEDS: FERROUS SULFATE 300 MG/5 ML LIQD PEG SCH (17:36)
[2018-04-11] MEDS: ASCORBIC ACID 500 MG TAB PO SCH (17:36)
[2018-04-11] MEDS: AMITRIPTYLINE HCL 25 MG TAB PO SCH (21:00)
[2018-04-11] MEDS: METOPROLOL TARTRATE 25 MG TAB PO SCH (21:00)
[2018-04-12] VITALS (8 sets, daily range): BP systolic 108–154; BP diastolic 65–72
[2018-04-12] MEDS: LEVALBUTEROL HCL SOLN NEBU 0.63 MG/3 ML NEB INH SCH ×5 (04:20→19:15)
[2018-04-12] MEDS: IPRATROPIUM BROMIDE 0.02% 2.5 ML NEB NEB SCH ×4 (04:20→19:15)
[2018-04-12] MEDS: GUAIFENESIN 600 MG TAB PO SCH ×4 (05:32→17:45)
[2018-04-12] MEDS: LEVOTHYROXINE SODIUM 50 MCG TAB PO SCH (05:32)
[2018-04-12 05:48] LABS: BASOPHILS % 0.5 % (0.0-1.0); EOSINOPHILS # (AUTO) 0.4 (0.0-0.4); EOSINOPHILS % 4.4 % (0.0-6.0); HEMATOCRIT 35.6 % (34.2-44.1); HEMOGLOBIN 11.4 g/dL (12.0-16.0); LYMPHOCYTES # (AUTO) 1.3 (1.0-3.2); LYMPHOCYTES % 15.1 % (18.0-39.1); MEAN CORPUSCULAR HEMOGLOBIN 28.6 pg (28-32); MEAN CORPUSCULAR VOLUME 89.4 fL (81-99); MONOCYTES # (AUTO) 0.8 (0.2-0.8); MONOCYTES % 9.1 % (4.4-11.3); NEUTROPHILS # (AUTO) 5.9 (2.1-6.9); NEUTROPHILS % 70.5 % (38.7-80.0); RED BLOOD COUNT 3.98 x10e6/uL (3.6-5.1); RED CELL DISTRIBUTION WIDTH 14.6 % (11.7-14.4)
[2018-04-12 05:54] LABS: PLATELET COUNT 42 x10e3/uL (140-360)
[2018-04-12 06:09] LABS: ANION GAP 11.9 mmol/L (8-16); BLOOD UREA NITROGEN 13 mg/dL (7-26); BUN/CREATININE RATIO 18 (6-25); CALCIUM 10.1 mg/dL (8.4-10.2); CARBON DIOXIDE 27 mmol/L (22-29); CHLORIDE 102 mmol/L (98-107); CREATININE, SERUM 0.73 mg/dL (0.57-1.11); EST GLOMERULAR FILTRATION RATE > 60 ML/MIN (60-); GLUCOSE 110 mg/dL (74-118); POTASSIUM 3.9 mmol/L (3.5-5.1); SODIUM 137 mmol/L (136-145)
[2018-04-12] MEDS: INSULIN REGULAR, HUMAN 100 UNIT/1 ML 3ML VIAL SQ SCH ×4 (07:30→21:00)
[2018-04-12] MEDS: DICYCLOMINE HCL 20 MG TAB PO SCH ×4 (08:42→22:10)
[2018-04-12] MEDS: METOPROLOL TARTRATE 25 MG TAB PO SCH ×2 (08:42→21:00)
[2018-04-12] MEDS: SITAGLIPTIN 100 MG TAB PO SCH (08:42)
[2018-04-12] MEDS: NEOMYCIN/POLYMYXIN/BACITRACIN 15 GM TUBE TOP SCH ×3 (08:42→22:10)
[2018-04-12] MEDS: ALLOPURINOL 100 MG TAB PO SCH (08:42)
[2018-04-12] MEDS: FUROSEMIDE 40 MG TAB PO SCH (08:42)
[2018-04-12] MEDS: FAMOTIDINE 20 MG TAB PEG SCH ×2 (08:42→16:45)
[2018-04-12] MEDS: NYSTATIN 15 GM POWDER UD BTL TOP SCH (08:42)
[2018-04-12] MEDS: ASCORBIC ACID 500 MG TAB PO SCH ×2 (08:42→16:45)
[2018-04-12] MEDS ORDERED: BALSAM PERU/CASTOR OIL 60 GM OINT...G. TP SCH (09:00)
[2018-04-12] MEDS: FERROUS SULFATE 300 MG/5 ML LIQD PEG SCH ×2 (09:10→16:45)
[2018-04-12] MEDS: BALSAM PERU/CASTOR OIL 60 GM OINT...G. TP SCH ×2 (13:29→16:45)
--- NOTE | 2018-04-12 14:00 | Consultation ---
DATE OF CONSULTATION: April 11, 2018 PULMONARY CONSULTATION A patient of Dr. Stein, well known to the pulmonary service. Patient with a history of tracheostenosis, admitted with dislodged tracheostomy in [facility]. History of hypertension, diabetes, ITP. ALLERGIC TO PENICILLIN, TITANIUM AND HEPARIN. Multiple home medications including Tylenol with Codeine, allopurinol, Elavil, aspirin, ascorbic acid, budesonide, Questran, dicyclomine, Pepcid, iron, Lasix, guaifenesin, sliding-scale insulin, Atrovent, lactobacillus, Xopenex, Levoxyl, Ativan, metoprolol, simethicone, Januvia, vancomycin. She has a history of tonsillectomy, hysterectomy, PEG tube, left hip replacement. She has a history of tracheostenosis with chronic tracheostomy, hypertension. She has had revision of the tracheostomy, but she was not successful in maintaining her airway and an XLT had to be placed. Dr. Hill has recommended revision at [facility]. This is complicated by her chronic thrombocytopenia, partially dislodged tracheostomy which is difficult to reinsert, wishes to wait for Dr. Hill. PHYSICAL EXAMINATION VITAL SIGNS: Temperature 98.3, pulse 72, respirations 16, blood pressure 128/63. HEAD: Normocephalic, atraumatic. Tracheostomy in place. LUNGS: Clear anteriorly. ABDOMEN: PEG is in place. EXTREMITIES: Nonedematous. PLAN: To replace the tracheal tube. Family will reconsider the formal surgical repair, which may be quite complicated. The plan is to consider formal repair in the near future. After this tube has been replaced, she is in no acute distress, and will wait for Dr. Hill. Job#: [id number] EV
--- NOTE | 2018-04-12 14:03 | Consultation ---
HISTORY OF PRESENT ILLNESS: I was kindly asked to see this 68-year-old woman, well known to me from previous admissions. She has tracheal stenosis which required tracheal dilation and placement of a #8 Shiley XLT distal tracheostomy tube to stent through the stenotic segment. She has had recurring episodes where the tracheostomy tube becomes partially dislodged and is unable to be reinserted. She now presents with dislodged tracheostomy tube. She is breathing adequately through the dislodged tube. Her history of present illness, past medical history and past surgical history were reviewed in detail on the chart. PHYSICAL EXAMINATION: The tracheostomy tube was dislodged approximately 3 cm. The inner cannula was removed. There was debris within the inner cannula. A new #8 Eugenia XLT distal tracheostomy tube was then easily inserted through the previous tracheostomy site and placed in the proper position. Trach ties were applied and the patient was suctioned of a small amount of bloody mucus. ASSESSMENT: 1. Tracheal stenosis. 2. Dislodged tracheostomy tube, status post replacement. PLAN: 1. Cleared for discharge from otolaryngology standpoint. 2. The patient was again counseled regarding the need for tight tracheostomy ties to prevent dislodging of the tracheostomy tube in the future. Job#: [id number] EMILIA
[2018-04-12] MEDS: AMITRIPTYLINE HCL 25 MG TAB PO SCH (22:10)
[2018-04-13] VITALS (7 sets, daily range): BP systolic 101–165; BP diastolic 64–83
[2018-04-13] MEDS: GUAIFENESIN 600 MG TAB PO SCH ×4 (00:15→17:52)
[2018-04-13] MEDS: LEVALBUTEROL HCL SOLN NEBU 0.63 MG/3 ML NEB INH SCH ×6 (03:00→19:30)
[2018-04-13] MEDS: LEVOTHYROXINE SODIUM 50 MCG TAB PO SCH (06:12)
[2018-04-13] MEDS: INSULIN REGULAR, HUMAN 100 UNIT/1 ML 3ML VIAL SQ SCH ×4 (07:30→20:32)
[2018-04-13] MEDS: IPRATROPIUM BROMIDE 0.02% 2.5 ML NEB NEB SCH ×4 (07:30→19:30)
[2018-04-13] MEDS ORDERED: K DUR10 MEQ PO (08:01)
[2018-04-13] MEDS ORDERED: NOVOLOG100 UNITS1 SQ (08:05)
[2018-04-13] MEDS: SITAGLIPTIN 100 MG TAB PO SCH (08:26)
[2018-04-13] MEDS: ASCORBIC ACID 500 MG TAB PO SCH ×2 (08:26→16:40)
[2018-04-13] MEDS: NEOMYCIN/POLYMYXIN/BACITRACIN 15 GM TUBE TOP SCH ×3 (08:26→21:28)
[2018-04-13] MEDS: FAMOTIDINE 20 MG TAB PEG SCH ×2 (08:26→16:40)
[2018-04-13] MEDS: DICYCLOMINE HCL 20 MG TAB PO SCH ×4 (08:26→22:30)
[2018-04-13] MEDS: FUROSEMIDE 40 MG TAB PO SCH (08:26)
[2018-04-13] MEDS: ALLOPURINOL 100 MG TAB PO SCH (08:26)
[2018-04-13] MEDS: FERROUS SULFATE 300 MG/5 ML LIQD PEG SCH ×2 (08:26→16:40)
[2018-04-13] MEDS: METOPROLOL TARTRATE 25 MG TAB PO SCH ×2 (08:26→22:30)
[2018-04-13] MEDS: NYSTATIN 15 GM POWDER UD BTL TOP SCH (08:30)
[2018-04-13] MEDS: BALSAM PERU/CASTOR OIL 60 GM OINT...G. TP SCH ×2 (11:32→17:52)
[2018-04-13] MEDS: AMITRIPTYLINE HCL 25 MG TAB PO SCH (22:30)
[2018-04-14] VITALS (7 sets, daily range): BP systolic 98–130; BP diastolic 55–72
[2018-04-14] MEDS: GUAIFENESIN 600 MG TAB PO SCH ×4 (00:22→18:12)
[2018-04-14] MEDS: LEVALBUTEROL HCL SOLN NEBU 0.63 MG/3 ML NEB INH SCH ×7 (03:00→23:30)
[2018-04-14 03:17] LABS: BASOPHILS % 0.3 % (0.0-1.0); EOSINOPHILS # (AUTO) 0.5 (0.0-0.4); HEMATOCRIT 35.5 % (34.2-44.1); HEMOGLOBIN 11.6 g/dL (12.0-16.0); LYMPHOCYTES # (AUTO) 1.7 (1.0-3.2); LYMPHOCYTES % 17.3 % (18.0-39.1); MEAN CORPUSCULAR HEMOGLOBIN 28.8 pg (28-32); MEAN CORPUSCULAR HGB CONC 32.7 g/dL (31-35); MEAN CORPUSCULAR VOLUME 88.1 fL (81-99); MONOCYTES # (AUTO) 0.9 (0.2-0.8); MONOCYTES % 8.5 % (4.4-11.3); NEUTROPHILS # (AUTO) 6.8 (2.1-6.9); NEUTROPHILS % 68.6 % (38.7-80.0); PLATELET COUNT 51 x10e3/uL (140-360); RED BLOOD COUNT 4.03 x10e6/uL (3.6-5.1); RED CELL DISTRIBUTION WIDTH 14.6 % (11.7-14.4)
[2018-04-14 03:31] LABS: ANION GAP 13.9 mmol/L (8-16); BLOOD UREA NITROGEN 26 mg/dL (7-26); BUN/CREATININE RATIO 31 (6-25); CALCIUM 10.2 mg/dL (8.4-10.2); CARBON DIOXIDE 28 mmol/L (22-29); CHLORIDE 99 mmol/L (98-107); CREATININE, SERUM 0.85 mg/dL (0.57-1.11); EST GLOMERULAR FILTRATION RATE > 60 ML/MIN (60-); GLUCOSE 112 mg/dL (74-118); MAGNESIUM 1.8 MG/DL (1.3-2.1); POTASSIUM 3.9 mmol/L (3.5-5.1); SODIUM 137 mmol/L (136-145)
[2018-04-14] MEDS: LEVOTHYROXINE SODIUM 50 MCG TAB PO SCH (05:52)
[2018-04-14] MEDS: IPRATROPIUM BROMIDE 0.02% 2.5 ML NEB NEB SCH ×4 (06:49→18:50)
[2018-04-14] MEDS: INSULIN REGULAR, HUMAN 100 UNIT/1 ML 3ML VIAL SQ SCH ×4 (07:30→21:00)
[2018-04-14] MEDS: METOPROLOL TARTRATE 25 MG TAB PO SCH ×2 (09:21→21:00)
[2018-04-14] MEDS: FERROUS SULFATE 300 MG/5 ML LIQD PEG SCH ×2 (09:21→17:48)
[2018-04-14] MEDS: NEOMYCIN/POLYMYXIN/BACITRACIN 15 GM TUBE TOP SCH ×3 (09:21→21:00)
[2018-04-14] MEDS: ALLOPURINOL 100 MG TAB PO SCH (09:21)
[2018-04-14] MEDS: FAMOTIDINE 20 MG TAB PEG SCH ×2 (09:21→17:48)
[2018-04-14] MEDS: SITAGLIPTIN 100 MG TAB PO SCH (09:21)
[2018-04-14] MEDS: DICYCLOMINE HCL 20 MG TAB PO SCH ×4 (09:21→21:00)
[2018-04-14] MEDS: BALSAM PERU/CASTOR OIL 60 GM OINT...G. TP SCH ×2 (09:21→17:49)
[2018-04-14] MEDS: ASCORBIC ACID 500 MG TAB PO SCH ×2 (09:21→17:48)
[2018-04-14] MEDS: NYSTATIN 15 GM POWDER UD BTL TOP SCH (09:21)
[2018-04-14] MEDS: FUROSEMIDE 40 MG TAB PO SCH (09:21)
[2018-04-14] MEDS: AMITRIPTYLINE HCL 25 MG TAB PO SCH (21:00)
[2018-04-15] VITALS: BP 121/62
[2018-04-15] MEDS: LEVALBUTEROL HCL SOLN NEBU 0.63 MG/3 ML NEB INH SCH ×6 (03:15→22:55)
[2018-04-15] MEDS: IPRATROPIUM BROMIDE 0.02% 2.5 ML NEB NEB SCH ×4 (03:15→18:55)
[2018-04-15 04:00] VITALS: BP 136/60
[2018-04-15] MEDS: GUAIFENESIN 600 MG TAB PO SCH ×4 (05:38→18:10)
[2018-04-15] MEDS: LEVOTHYROXINE SODIUM 50 MCG TAB PO SCH (05:38)
[2018-04-15 05:47] LABS: BASOPHILS % 0.3 % (0.0-1.0); EOSINOPHILS # (AUTO) 0.5 (0.0-0.4); EOSINOPHILS % 5.7 % (0.0-6.0); HEMATOCRIT 35.7 % (34.2-44.1); HEMOGLOBIN 11.4 g/dL (12.0-16.0); LYMPHOCYTES # (AUTO) 1.4 (1.0-3.2); MEAN CORPUSCULAR HEMOGLOBIN 28.5 pg (28-32); MEAN CORPUSCULAR HGB CONC 31.9 g/dL (31-35); MEAN CORPUSCULAR VOLUME 89.3 fL (81-99); MONOCYTES # (AUTO) 0.7 (0.2-0.8); NEUTROPHILS # (AUTO) 6.1 (2.1-6.9); NEUTROPHILS % 69.7 % (38.7-80.0); PLATELET COUNT 55 x10e3/uL (140-360); RED CELL DISTRIBUTION WIDTH 14.4 % (11.7-14.4)
[2018-04-15 06:07] LABS: ANION GAP 13.5 mmol/L (8-16); BLOOD UREA NITROGEN 30 mg/dL (7-26); BUN/CREATININE RATIO 34 (6-25); CALCIUM 10.4 mg/dL (8.4-10.2); CARBON DIOXIDE 30 mmol/L (22-29); CHLORIDE 99 mmol/L (98-107); CREATININE, SERUM 0.87 mg/dL (0.57-1.11); EST GLOMERULAR FILTRATION RATE > 60 ML/MIN (60-); GLUCOSE 121 mg/dL (74-118); MAGNESIUM 1.6 MG/DL (1.3-2.1); POTASSIUM 3.5 mmol/L (3.5-5.1); SODIUM 139 mmol/L (136-145)
[2018-04-15 07:28] VITALS: BP 170/71
[2018-04-15] MEDS: INSULIN REGULAR, HUMAN 100 UNIT/1 ML 3ML VIAL SQ SCH ×4 (07:30→20:35)
[2018-04-15 07:51] VITALS: BP 170/71
[2018-04-15] MEDS ORDERED: CLONIDINE HCL 0.1 MG TAB PO PRN (08:45)
[2018-04-15] MEDS ORDERED: DEXTROSE 5%/0.45% SOD CHL 1,000 ML IV ONE (08:45)
[2018-04-15] MEDS ORDERED: SODIUM CHLORIDE 0.9% 500ML 500 ML IV ONE (08:45)
[2018-04-15] MEDS ORDERED: CATAPRES0.1 MG PO (08:48)
[2018-04-15] MEDS ORDERED: mucomyst NEB (08:49)
[2018-04-15] MEDS: NEOMYCIN/POLYMYXIN/BACITRACIN 15 GM TUBE TOP SCH ×3 (09:17→22:00)
[2018-04-15] MEDS: FUROSEMIDE 40 MG TAB PO SCH (09:17)
[2018-04-15] MEDS: FERROUS SULFATE 300 MG/5 ML LIQD PEG SCH ×2 (09:17→17:30)
[2018-04-15] MEDS: ASCORBIC ACID 500 MG TAB PO SCH ×2 (09:17→17:30)
[2018-04-15] MEDS: FAMOTIDINE 20 MG TAB PEG SCH ×2 (09:17→17:30)
[2018-04-15] MEDS: SITAGLIPTIN 100 MG TAB PO SCH (09:17)
[2018-04-15] MEDS: NYSTATIN 15 GM POWDER UD BTL TOP SCH (09:17)
[2018-04-15] MEDS: METOPROLOL TARTRATE 25 MG TAB PO SCH ×2 (09:17→22:00)
[2018-04-15] MEDS: DICYCLOMINE HCL 20 MG TAB PO SCH ×4 (09:17→22:00)
[2018-04-15] MEDS: ALLOPURINOL 100 MG TAB PO SCH (09:17)
[2018-04-15] MEDS: BALSAM PERU/CASTOR OIL 60 GM OINT...G. TP SCH ×2 (09:18→17:30)
[2018-04-15 16:06] VITALS: BP 124/60
[2018-04-15 20:00] VITALS: BP 142/63
[2018-04-15] MEDS: AMITRIPTYLINE HCL 25 MG TAB PO SCH (22:00)
[2018-04-16] VITALS: BP 120/69
[2018-04-16] MEDS: GUAIFENESIN 600 MG TAB PO SCH ×5 (00:10→23:55)
[2018-04-16] MEDS: LEVALBUTEROL HCL SOLN NEBU 0.63 MG/3 ML NEB INH SCH ×6 (03:30→23:15)
[2018-04-16] MEDS: IPRATROPIUM BROMIDE 0.02% 2.5 ML NEB NEB SCH ×4 (03:30→19:15)
[2018-04-16 04:00] VITALS: BP 107/64
[2018-04-16 05:37] LABS: BASOPHILS % 0.5 % (0.0-1.0); EOSINOPHILS # (AUTO) 0.4 (0.0-0.4); EOSINOPHILS % 5.2 % (0.0-6.0); HEMATOCRIT 37.2 % (34.2-44.1); HEMOGLOBIN 11.7 g/dL (12.0-16.0); LYMPHOCYTES # (AUTO) 1.6 (1.0-3.2); LYMPHOCYTES % 18.5 % (18.0-39.1); MEAN CORPUSCULAR HEMOGLOBIN 28.1 pg (28-32); MEAN CORPUSCULAR HGB CONC 31.5 g/dL (31-35); MEAN CORPUSCULAR VOLUME 89.2 fL (81-99); MONOCYTES # (AUTO) 0.8 (0.2-0.8); MONOCYTES % 9.5 % (4.4-11.3); NEUTROPHILS # (AUTO) 5.6 (2.1-6.9); NEUTROPHILS % 66.1 % (38.7-80.0); RED BLOOD COUNT 4.17 x10e6/uL (3.6-5.1); RED CELL DISTRIBUTION WIDTH 14.2 % (11.7-14.4)
[2018-04-16 05:41] LABS: PLATELET COUNT 48 x10e3/uL (140-360)
[2018-04-16 05:54] LABS: ANION GAP 14.6 mmol/L (8-16); BLOOD UREA NITROGEN 28 mg/dL (7-26); BUN/CREATININE RATIO 33 (6-25); CALCIUM 10.4 mg/dL (8.4-10.2); CARBON DIOXIDE 30 mmol/L (22-29); CHLORIDE 98 mmol/L (98-107); CREATININE, SERUM 0.84 mg/dL (0.57-1.11); EST GLOMERULAR FILTRATION RATE > 60 ML/MIN (60-); GLUCOSE 106 mg/dL (74-118); MAGNESIUM 1.7 MG/DL (1.3-2.1); POTASSIUM 3.6 mmol/L (3.5-5.1); SODIUM 139 mmol/L (136-145)
[2018-04-16] MEDS: LEVOTHYROXINE SODIUM 50 MCG TAB PO SCH (06:18)
[2018-04-16 07:10] VITALS: BP 136/64
[2018-04-16] MEDS: INSULIN REGULAR, HUMAN 100 UNIT/1 ML 3ML VIAL SQ SCH ×4 (07:30→21:00)
[2018-04-16 07:41] VITALS: BP 136/64
[2018-04-16] MEDS: FERROUS SULFATE 300 MG/5 ML LIQD PEG SCH ×2 (09:14→17:37)
[2018-04-16] MEDS: METOPROLOL TARTRATE 25 MG TAB PO SCH ×2 (09:14→21:55)
[2018-04-16] MEDS: NYSTATIN 15 GM POWDER UD BTL TOP SCH (09:14)
[2018-04-16] MEDS: SITAGLIPTIN 100 MG TAB PO SCH (09:14)
[2018-04-16] MEDS: NEOMYCIN/POLYMYXIN/BACITRACIN 15 GM TUBE TOP SCH ×3 (09:14→21:55)
[2018-04-16] MEDS: ASCORBIC ACID 500 MG TAB PO SCH ×2 (09:14→17:37)
[2018-04-16] MEDS: FAMOTIDINE 20 MG TAB PEG SCH ×2 (09:14→17:37)
[2018-04-16] MEDS: DICYCLOMINE HCL 20 MG TAB PO SCH ×4 (09:14→21:55)
[2018-04-16] MEDS: ALLOPURINOL 100 MG TAB PO SCH (09:14)
[2018-04-16] MEDS: FUROSEMIDE 40 MG TAB PO SCH (09:14)
[2018-04-16] MEDS: BALSAM PERU/CASTOR OIL 60 GM OINT...G. TP SCH ×2 (09:15→17:37)
[2018-04-16 15:34] VITALS: BP 124/61
[2018-04-16 21:07] VITALS: BP 138/62
[2018-04-16] MEDS: AMITRIPTYLINE HCL 25 MG TAB PO SCH (21:55)
[2018-04-17 00:52] VITALS: BP 130/86
[2018-04-17] MEDS: LEVALBUTEROL HCL SOLN NEBU 0.63 MG/3 ML NEB INH SCH ×4 (02:45→14:35)
[2018-04-17] MEDS: IPRATROPIUM BROMIDE 0.02% 2.5 ML NEB NEB SCH ×3 (02:45→14:35)
[2018-04-17 05:12] VITALS: BP 107/52
[2018-04-17 05:47] LABS: BASOPHILS % 0.2 % (0.0-1.0); EOSINOPHILS # (AUTO) 0.4 (0.0-0.4); EOSINOPHILS % 5.2 % (0.0-6.0); HEMATOCRIT 35.7 % (34.2-44.1); HEMOGLOBIN 11.7 g/dL (12.0-16.0); LYMPHOCYTES # (AUTO) 1.4 (1.0-3.2); LYMPHOCYTES % 17.3 % (18.0-39.1); MEAN CORPUSCULAR HEMOGLOBIN 28.9 pg (28-32); MEAN CORPUSCULAR HGB CONC 32.8 g/dL (31-35); MEAN CORPUSCULAR VOLUME 88.1 fL (81-99); MONOCYTES # (AUTO) 0.7 (0.2-0.8); NEUTROPHILS # (AUTO) 5.4 (2.1-6.9); NEUTROPHILS % 67.9 % (38.7-80.0); PLATELET COUNT 53 x10e3/uL (140-360); RED BLOOD COUNT 4.05 x10e6/uL (3.6-5.1); RED CELL DISTRIBUTION WIDTH 14.2 % (11.7-14.4)
[2018-04-17] MEDS: GUAIFENESIN 600 MG TAB PO SCH ×2 (05:47→13:07)
[2018-04-17] MEDS: LEVOTHYROXINE SODIUM 50 MCG TAB PO SCH (05:47)
[2018-04-17 06:07] LABS: ANION GAP 14.7 mmol/L (8-16); BLOOD UREA NITROGEN 27 mg/dL (7-26); BUN/CREATININE RATIO 32 (6-25); CALCIUM 10.4 mg/dL (8.4-10.2); CARBON DIOXIDE 29 mmol/L (22-29); CHLORIDE 97 mmol/L (98-107); CREATININE, SERUM 0.84 mg/dL (0.57-1.11); EST GLOMERULAR FILTRATION RATE > 60 ML/MIN (60-); GLUCOSE 113 mg/dL (74-118); MAGNESIUM 1.7 MG/DL (1.3-2.1); POTASSIUM 3.7 mmol/L (3.5-5.1); SODIUM 137 mmol/L (136-145)
[2018-04-17] MEDS: INSULIN REGULAR, HUMAN 100 UNIT/1 ML 3ML VIAL SQ SCH ×2 (07:30→11:30)
[2018-04-17 08:00] VITALS: BP 122/57
[2018-04-17 09:20] VITALS: BP 122/57
[2018-04-17] MEDS: ASCORBIC ACID 500 MG TAB PO SCH (09:40)
[2018-04-17] MEDS: FUROSEMIDE 40 MG TAB PO SCH (09:40)
[2018-04-17] MEDS: DICYCLOMINE HCL 20 MG TAB PO SCH ×2 (09:40→13:07)
[2018-04-17] MEDS: BALSAM PERU/CASTOR OIL 60 GM OINT...G. TP SCH (09:40)
[2018-04-17] MEDS: FERROUS SULFATE 300 MG/5 ML LIQD PEG SCH (09:40)
[2018-04-17] MEDS: NYSTATIN 15 GM POWDER UD BTL TOP SCH (09:40)
[2018-04-17] MEDS: SITAGLIPTIN 100 MG TAB PO SCH (09:40)
[2018-04-17] MEDS: NEOMYCIN/POLYMYXIN/BACITRACIN 15 GM TUBE TOP SCH (09:40)
[2018-04-17] MEDS: ALLOPURINOL 100 MG TAB PO SCH (09:40)
[2018-04-17] MEDS: FAMOTIDINE 20 MG TAB PEG SCH (09:40)
[2018-04-17] MEDS: METOPROLOL TARTRATE 25 MG TAB PO SCH (09:40)
[2018-04-17 12:00] VITALS: BP 99/50
[2018-04-17] MEDS ORDERED: JANUVIA100 MG PO (14:58)
[2018-04-17] MEDS ORDERED: ACIDOPHILUS1 EAC1 PO (14:59)
[2018-04-17] MEDS ORDERED: SYNTHROID50 MCG PO (15:00)
[2018-04-17] MEDS ORDERED: LORAZEPAM0.5 MG PO (15:00)
[2018-04-17] MEDS ORDERED: METOCLOPRAM5 MG/5 ML PEG (15:01)
[2018-04-17] MEDS ORDERED: SIMETHICONE80 MG PO (15:04)
[2018-04-17] MEDS ORDERED: AMITRIPTYLINE H25 MG PO (15:05)
[2018-04-17] MEDS ORDERED: ALLOPURINOL300 MG PO (15:05)
[2018-04-17] MEDS ORDERED: TYLENOL WITH C1 EACH PO (15:05)
[2018-04-17] MEDS ORDERED: LASIX40 MG PO (15:06)
--- NOTE | 2018-04-18 11:28 | Discharge Summary ---
ADMISSION DIAGNOSES: 1. Dislodged tracheostomy. 2. Thrombocytopenia. 3. Chronic respiratory failure. DISCHARGE DIAGNOSES: 1. Dislodged tracheostomy. 2. Thrombocytopenia. 3. Chronic respiratory failure. 4. Anemia. 5. Hypertension. 6. Hypothyroidism. 7. Dysphagia. HISTORY: Patient has a history of type 2 diabetes, hypertension, chronic respiratory failure with trach placement, PEG, dysphagia with PEG placement, GERD, hypothyroidism. HOSPITAL COURSE: A 68-year-old female status post trach, presents from [facility] with trach dislodged. On admission, pulmonary and ENT were consulted. Chest x-ray showed a stable appearance of the chest. On the , ENT replaced the trach with no complications. Vital signs stable. Patient afebrile. Patient remained in the hospital while case management worked up getting her DME setup for home as she did not want to return to detention anymore. Patient had trach PT/OT, , bedside commode, and hospital 1 to 2 weeks. Patient has good support system at home including her , who will help her at home. The patient . Vital signs stable. Patient afebrile. Patient will be discharged home today. Dictated by Pilar Rollins NP Job#: [id number]
== END 2018-04-17 16:41 | disposition home or self-care (01) | DRG 206 ==
LOC: ER 01:01 → INTOOBSV 04:46 → ERHOLD 04:46 → OBSVTOIN 04:46 → MED/SURG3 05:15 → OBSVTOIN 04-14 11:59
PROVIDERS: ADMIT Internal Medicine; ATTEND Internal Medicine
PROC: 0B21XFZ Change Tracheostomy Device in Trachea, External Approach (ICD-10-PCS; principal; 2018-04-11)
DX: J95.03 Malfunction of tracheostomy stoma (principal); J96.10 Chronic respiratory failure, unspecified whether with hypoxia or hypercapnia; D69.3 Immune thrombocytopenic purpura; E11.9 Type 2 diabetes mellitus without complications; E86.0 Dehydration; E03.9 Hypothyroidism, unspecified; R13.10 Dysphagia, unspecified; I10 Essential (primary) hypertension; D64.9 Anemia, unspecified; Z79.4 Long term (current) use of insulin; K21.9 Gastro-esophageal reflux disease without esophagitis; Z88.0 Allergy status to penicillin; Z88.8 Allergy status to other drugs, medicaments and biological substances; Z93.1 Gastrostomy status; Z96.642 Presence of left artificial hip joint; E83.52 Hypercalcemia
CPT/HCPCS: 36415; 71045; 80048; 82948; 83735; 83880; 85025; 85610; 85730; 94640; 96365; 97139; 99284; G0378; J2270; J2405

== ENCOUNTER 2018-05-14 06:09 | Emergency (ER) | payer MEDICARE, OTHER ==
[~2018-05-14] VITALS: Ht 172.7 cm; Wt 109.8 kg
[~2018-05-14 06:09] MED LIST changes: +ACIDOPHILUS1 EAC1 PO; +ALLOPURINOL300 MG PO; +CATAPRES0.1 MG PO; +K DUR10 MEQ PO; +LORAZEPAM0.5 MG PO; +METOCLOPRAM5 MG/5 ML PEG; +NOVOLOG100 UNITS1 SQ; +SYNTHROID50 MCG PO; +mucomyst NEB
[2018-05-14 06:51] LABS: BASOPHILS % 0.4 % (0.0-1.0); EOSINOPHILS # (AUTO) 0.4 (0.0-0.4); EOSINOPHILS % 5.2 % (0.0-6.0); HEMATOCRIT 40.4 % (34.2-44.1); HEMOGLOBIN 12.7 g/dL (12.0-16.0); LYMPHOCYTES # (AUTO) 1.4 (1.0-3.2); LYMPHOCYTES % 19.6 % (18.0-39.1); MEAN CORPUSCULAR HEMOGLOBIN 27.9 pg (28-32); MEAN CORPUSCULAR HGB CONC 31.4 g/dL (31-35); MEAN CORPUSCULAR VOLUME 88.6 fL (81-99); MONOCYTES # (AUTO) 0.5 (0.2-0.8); MONOCYTES % 7.7 % (4.4-11.3); NEUTROPHILS # (AUTO) 4.7 (2.1-6.9); NEUTROPHILS % 66.7 % (38.7-80.0); PLATELET COUNT 57 x10e3/uL (140-360); RED BLOOD COUNT 4.56 x10e6/uL (3.6-5.1); RED CELL DISTRIBUTION WIDTH 13.8 % (11.7-14.4)
[2018-05-14 07:02] LABS: INR 1.09; PROTHROMBIN TIME 13.3 seconds (11.9-14.5)
[2018-05-14 07:03] LABS: PARTIAL THROMBOPLASTIN TIME 27.3 seconds (23.8-35.5)
[2018-05-14 07:12] LABS: ALANINE AMINOTRANSFERASE 43 IU/L (0-55); ALBUMIN 3.7 g/dL (3.5-5.0); ALBUMIN/GLOBULIN RATIO 0.9 (0.8-2.0); ALKALINE PHOSPHATASE 103 IU/L (40-150); BLOOD UREA NITROGEN 27 mg/dL (7-26); BUN/CREATININE RATIO 31 (6-25); CALCIUM 10.8 mg/dL (8.4-10.2); CARBON DIOXIDE 26 mmol/L (22-29); CHLORIDE 100 mmol/L (98-107); CREATININE, SERUM 0.87 mg/dL (0.57-1.11); EST GLOMERULAR FILTRATION RATE > 60 ML/MIN (60-); GLUCOSE 111 mg/dL (74-118); SODIUM 138 mmol/L (136-145)
--- NOTE | 2018-05-14 07:46 | Diagnostic Imaging Report ---
CHEST SINGLE (PORTABLE), 05/14/2018 6:17 AM Technique: CHEST SINGLE (PORTABLE) Comparison: 7.24.18. Clinical history: SOB Findings: See Impression Impression: Limited by body habitus and overlying support apparatus. Lines/tubes: Tracheostomy in place. 1. Stable enlarged cardiomediastinal silhouette. 2. Stable bibasilar atelectasis or scarring. No edema. 3. No effusion or pneumothorax. Signed by: Dr Mago Rosales MD on 05/14/2018 6:51 AM
[2018-05-14 08:47] VITALS: BP 100/75
--- NOTE | 2018-05-14 09:54 | Consultation ---
DATE OF CONSULTATION: May 14, 2018 HOSPITAL CONSULTATION HISTORY OF PRESENT ILLNESS: I was kindly asked to see this 68-year-old woman for evaluation for dislodged tracheostomy tube. She has a history of tracheal stenosis which required dilation and placement of a Shiley XLT distal tracheostomy tube to stent the stenotic segment. She was told by her primary care physician to not be a candidate for more aggressive surgical intervention, and she has had several episodes of the trach becoming dislodged with an inability to replace the tracheostomy tube. She now presents with a dislodged tracheostomy tube which cannot be replaced by the emergency room physician. PHYSICAL EXAMINATION: The tracheostomy tube was dislodged. The tracheostomy tube was removed and a new #8 Shiley XLT distal tracheostomy tube then inserted and trach ties were applied. ASSESSMENT: Dislodged tracheostomy tube with successful replacement. PLAN: 1. Cleared for discharge from otolaryngology standpoint. 2. I will discuss treatment options with her primary care physician, and consider referral to [facility] physician for consideration of more aggressive surgical intervention if her primary care doctor believes she is a candidate for surgery. Thank you very much. Job#: [id number] DR KENDRICK
== END 2018-05-14 09:35 | disposition home or self-care (01) ==
LOC: ER 06:09
DX: Z43.0 Encounter for attention to tracheostomy (principal); Z93.0 Tracheostomy status; I10 Essential (primary) hypertension; E11.9 Type 2 diabetes mellitus without complications; J44.9 Chronic obstructive pulmonary disease, unspecified; E03.9 Hypothyroidism, unspecified; N18.9 Chronic kidney disease, unspecified; E66.01 Morbid (severe) obesity due to excess calories
CPT/HCPCS: 36415; 71045; 80053; 85025; 85610; 85730; 99284

== ENCOUNTER 2018-06-01 11:32 | Inpatient (IN) | payer MEDICARE, OTHER ==
[~2018-06-01] VITALS: Ht 172.7 cm; Wt 104.8 kg
[2018-06-01] MEDS ORDERED: VANCOMYCIN 1GM/NS 250 ML 250 ML IV STA (12:06)
[2018-06-01] MEDS ORDERED: METRONIDAZOLE 500MG/NS 100ML 100 ML IV STA (12:06)
[2018-06-01 12:34] LABS: BASOPHILS # (AUTO) 0.1 (0.0-0.1); BASOPHILS % 0.3 % (0.0-1.0); EOSINOPHILS # (AUTO) 0.1 (0.0-0.4); EOSINOPHILS % 0.7 % (0.0-6.0); HEMATOCRIT 44.4 % (34.2-44.1); HEMOGLOBIN 14.9 g/dL (12.0-16.0); LYMPHOCYTES # (AUTO) 0.9 (1.0-3.2); LYMPHOCYTES % 6.2 % (18.0-39.1); MEAN CORPUSCULAR HEMOGLOBIN 27.6 pg (28-32); MEAN CORPUSCULAR HGB CONC 33.6 g/dL (31-35); MEAN CORPUSCULAR VOLUME 82.4 fL (81-99); MONOCYTES # (AUTO) 0.7 (0.2-0.8); MONOCYTES % 4.5 % (4.4-11.3); NEUTROPHILS # (AUTO) 12.8 (2.1-6.9); NEUTROPHILS % 87.1 % (38.7-80.0); PLATELET COUNT 151 x10e3/uL (140-360); RED BLOOD COUNT 5.39 x10e6/uL (3.6-5.1); RED CELL DISTRIBUTION WIDTH 13.7 % (11.7-14.4)
[2018-06-01 12:49] LABS: ALBUMIN 3.3 g/dL (3.5-5.0); ALBUMIN/GLOBULIN RATIO 0.9 (0.8-2.0); CALCIUM 9.3 mg/dL (8.4-10.2); CREATININE, SERUM 1.81 mg/dL (0.57-1.11)
--- NOTE | 2018-06-01 13:15 | Diagnostic Imaging Report ---
Examination: Single AP view of the chest. COMPARISON: May 14, 2018 INDICATION: Shortness of breath DISCUSSION: Lines/tubes: Tracheostomy. Lungs: New left perihilar opacity. Right lung is clear. Pleura: No pleural effusion or pneumothorax. Heart and mediastinum: Prominent heart size and mediastinal contour. Bones and soft tissues: No acute bony abnormalities. IMPRESSION: New left perihilar opacity may reflect pneumonia or atelectasis. Signed by: Dr. Сергей Balderas M.D. on 06/01/2018 1:12 PM
[2018-06-01] MEDS ORDERED: LEVOFLOXACIN 750MG/DEXTROSE PREMIX BAG 150ML IV SCH (14:00)
[2018-06-01] MEDS: ALBUTEROL SULF 0.083% NEB SOLN 3 ML NEB NEB SCH ×4 (14:00→22:55)
[2018-06-01] MEDS ORDERED: VANCOMYCIN HCL 1GM/NS 250 ML BAG IV SCH (14:00)
[2018-06-01] MEDS ORDERED: AZITHROMYCIN 500MG/SOD CHL 0.9% 250ML BAG IV SCH (14:00)
[2018-06-01 14:29] LABS: CREATINE KINASE 12 IU/L (29-168)
[2018-06-01] MEDS ORDERED: IPRATROPIUM BROMIDE 0.02% 2.5 ML NEB NEB SCH (14:30)
[2018-06-01] MEDS: AZITHROMYCIN 500MG/NS 250 ML 250 ML IV SCH (14:30)
[2018-06-01] MEDS: VANCOMYCIN 1GM/NS 250 ML 250 ML IV SCH (14:40)
[2018-06-01] MEDS ORDERED: CLONIDINE HCL 0.1 MG TAB PEG PRN (15:15)
[2018-06-01] MEDS ORDERED: DEXTROSE 50% SYRINGE 50 ML IV PRN (15:15)
[2018-06-01] MEDS ORDERED: ACETAMINOPHEN 325 MG TAB PEG PRN (15:15)
[2018-06-01] MEDS ORDERED: SIMETHICONE 80 MG CHEW PEG PRN (15:15)
[2018-06-01] MEDS ORDERED: LORAZEPAM 0.5 MG TAB PEG PRN (15:15)
[2018-06-01] MEDS ORDERED: ONDANSETRON HCL INJ 2 MG/ML VIAL IV PRN (15:30)
[2018-06-01] MEDS ORDERED: ACETAMINOPHEN 325 MG/10 ML UDC PEG PRN (15:30)
[2018-06-01] MEDS ORDERED: SODIUM CHLORIDE 1 GM TAB PO ONE (15:45)
[2018-06-01 15:50] VITALS: BP 101/59
[2018-06-01 16:00] VITALS: BP 101/59
[2018-06-01] MEDS: INSULIN LISPRO 100 UNIT/1 ML 3ML VIAL SQ SCH ×2 (16:30→21:00)
[2018-06-01 16:35] VITALS: BP 101/59
[2018-06-01] MEDS: SODIUM CHLORIDE 0.9% 1000ML 1,000 ML IV SCH (17:20)
[2018-06-01] MEDS: GUAIFENESIN 200 MG/10 ML UDC PEG SCH ×2 (17:25→23:54)
[2018-06-01] MEDS: ACETAMINOPHEN/CODEINE 300MG - 30MG TAB PEG SCH ×2 (17:25→23:54)
[2018-06-01] MEDS: FAMOTIDINE 20 MG/2 ML VIAL IV SCH (17:26)
[2018-06-01] MEDS: IPRATROPIUM BROMIDE 0.02% 2.5 ML NEB NEB SCH ×2 (19:27→22:55)
[2018-06-01] MEDS ORDERED: GUAIFENESIN 600 MG TAB PEG SCH (21:00)
[2018-06-01 21:17] VITALS: BP 118/70
[2018-06-01] MEDS: METOPROLOL TARTRATE 25 MG TAB PEG SCH (21:31)
[2018-06-01] MEDS: AMITRIPTYLINE HCL 25 MG TAB PEG SCH (21:31)
[2018-06-01] MEDS: METOCLOPRAMIDE HCL 10MG/10ML UDC PEG SCH (21:31)
[2018-06-01 22:43] LABS: CREATINE KINASE 11 IU/L (29-168)
[2018-06-02] VITALS (7 sets, daily range): BP systolic 107–134; BP diastolic 57–75
[2018-06-02] MEDS: ALBUTEROL SULF 0.083% NEB SOLN 3 ML NEB NEB SCH ×6 (02:50→23:05)
[2018-06-02] MEDS: IPRATROPIUM BROMIDE 0.02% 2.5 ML NEB NEB SCH ×6 (02:50→23:05)
[2018-06-02 04:55] LABS: BASOPHILS # (AUTO) 0.1 (0.0-0.1); BASOPHILS % 0.4 % (0.0-1.0); EOSINOPHILS # (AUTO) 0.2 (0.0-0.4); EOSINOPHILS % 1.8 % (0.0-6.0); HEMATOCRIT 40.5 % (34.2-44.1); HEMOGLOBIN 13.5 g/dL (12.0-16.0); LYMPHOCYTES # (AUTO) 1.8 (1.0-3.2); LYMPHOCYTES % 14.3 % (18.0-39.1); MEAN CORPUSCULAR HEMOGLOBIN 27.8 pg (28-32); MEAN CORPUSCULAR HGB CONC 33.3 g/dL (31-35); MEAN CORPUSCULAR VOLUME 83.5 fL (81-99); MONOCYTES # (AUTO) 1.4 (0.2-0.8); MONOCYTES % 10.6 % (4.4-11.3); NEUTROPHILS % 70.6 % (38.7-80.0); PLATELET COUNT 158 x10e3/uL (140-360); RED BLOOD COUNT 4.85 x10e6/uL (3.6-5.1); RED CELL DISTRIBUTION WIDTH 13.7 % (11.7-14.4)
[2018-06-02 05:21] LABS: ANION GAP 16.4 mmol/L (8-16); CALCIUM 8.9 mg/dL (8.4-10.2); CREATININE, SERUM 1.7 mg/dL (0.57-1.11); MAGNESIUM 1.6 MG/DL (1.3-2.1); POTASSIUM 3.4 mmol/L (3.5-5.1)
[2018-06-02 05:35] LABS: CREATINE KINASE 14 IU/L (29-168)
[2018-06-02 05:43] LABS: FREE T4 (FREE THYROXINE) 1.22 ng/dL (0.9-1.8); THYROID STIMULATING HORMONE 3.735 uIU/mL (0.350-4.940)
[2018-06-02] MEDS: GUAIFENESIN 200 MG/10 ML UDC PEG SCH ×4 (05:48→23:46)
[2018-06-02] MEDS: LEVOTHYROXINE SODIUM 50 MCG TAB PEG SCH (05:48)
[2018-06-02] MEDS: ACETAMINOPHEN/CODEINE 300MG - 30MG TAB PEG SCH ×4 (05:48→23:47)
[2018-06-02] MEDS: INSULIN LISPRO 100 UNIT/1 ML 3ML VIAL SQ SCH ×4 (07:30→20:51)
[2018-06-02 08:04] LABS: ANISOCYTOSIS SLIGHT; BAND NEUTROPHILS % (MANUAL) 1 %; EOSINOPHILS % (MANUAL) 2 % (0-7); HYPOCHROMASIA SLIGHT; LYMPHOCYTES % (MANUAL) 17 % (19-48); MONOCYTES % (MANUAL) 7 % (3.4-9.0); NEUTROPHILS % (MANUAL) 69 % (40-74); PLATELET ESTIMATE ADEQUATE; PLATELET MORPHOLOGY COMMENT NORMAL; RBC MORPHOLOGY COMMENT NORMAL
[2018-06-02] MEDS ORDERED: FUROSEMIDE 40 MG TAB PEG SCH (09:00)
[2018-06-02] MEDS ORDERED: ALLOPURINOL 300 MG TAB PEG SCH (09:00)
[2018-06-02] MEDS ORDERED: POTASSIUM CHLORIDE 10 MEQ TABCR PEG SCH (09:00)
[2018-06-02] MEDS ORDERED: POTASSIUM CHLORIDE 20 MEQ TAB CR PO ONE (09:15)
[2018-06-02] MEDS: METOCLOPRAMIDE HCL 10MG/10ML UDC PEG SCH ×3 (10:07→23:20)
[2018-06-02] MEDS: FAMOTIDINE 20 MG/2 ML VIAL IV SCH ×2 (10:07→16:18)
[2018-06-02] MEDS: POTASSIUM CHLORIDE 20MEQ/15ML UDC PEG SCH (10:07)
[2018-06-02] MEDS: SITAGLIPTIN 100 MG TAB PEG SCH (10:07)
[2018-06-02] MEDS: NYSTATIN 15 GM POWDER UD BTL TOP SCH (10:07)
[2018-06-02] MEDS: BALSAM PERU/CASTOR OIL 60 GM OINT...G. TP SCH (10:07)
[2018-06-02] MEDS: ALLOPURINOL 100 MG TAB PEG SCH (10:07)
[2018-06-02] MEDS: LEVOFLOXACIN 750MG/D5W 150ML 150 ML IV SCH ×2 (10:16→10:30)
[2018-06-02] MEDS: AZITHROMYCIN 500MG/NS 250 ML 250 ML IV SCH (10:17)
[2018-06-02] MEDS: SODIUM CHLORIDE 0.9% 1000ML 1,000 ML IV SCH ×2 (10:30→21:56)
[2018-06-02] MEDS: METOPROLOL TARTRATE 25 MG TAB PEG SCH ×2 (10:30→23:20)
--- NOTE | 2018-06-02 12:44 | Consultation ---
DATE OF CONSULTATION: PULMONARY CONSULTATION REASON FOR CONSULTATION: Aspiration pneumonia. HISTORY OF PRESENT ILLNESS: Ms Lopez is a 68-year-old female who was admitted through the emergency room with complaints of coughing and choking on food. She has chronic trach because of tracheal stenosis and she was cleared by ST for full liquid diet about a week ago. She denies any complaints of chest pain, nausea or vomiting. REVIEW OF SYSTEMS GENERAL: Denies any fever or chills. HEENT: Denies any head trauma. Denies any earache. CVS: Denies any chest pain and respiratory. Denies any shortness of breath. The rest of the review systems are negative except as in the HPI. PAST MEDICAL HISTORY 1. 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 2. Tracheostomy. 3. Type 2 diabetes mellitus. 4. Hypertension. 5. History of C. diff. 6. CKD. 7. Hypothyroidism. PAST SURGICAL HISTORY 1. Tonsillectomy. 2. Hysterectomy. 3. PEG placement. FAMILY AND SOCIAL HISTORY: She does not smoke and does not drink. ALLERGIES 1. PENICILLIN. 2. HEPARIN. 3. TITANIUM. PHYSICAL EXAMINATION VITAL SIGNS: Temperature 99.5, pulse of 74, blood pressure 134/63, and respiratory rate of 18. HEENT: Head atraumatic, normocephalic. NECK: Supple. CHEST: Clear to auscultation bilaterally. Few crackles on the bases. Patient has a tracheostomy. ABDOMEN: Soft, nontender and nondistended. EXTREMITIES: No clubbing, cyanosis or edema. NEUROLOGIC: Awake and alert. No focal neurological deficit. LABORATORY [place]: [place] [address], hemoglobin 13.5, and platelets 158. Chemistry; Sodium 134, potassium 3.4, and chloride 101. BUN 62 and creatinine 1.7. Troponin is negative. Blood cultures are pending. Chest x-rays; I have reviewed the images that is showing possible left-sided pneumonia. ASSESSMENT AND PLAN: Ms. Lopez is a 68-year-old female who presented to the emergency room after choking on food, likely has aspiration pneumonia. CURRENT PROBLEMS 1. Aspiration pneumonitis. 2. Chronic respiratory failure. 3. Chronic permanent tracheostomy because of severe tracheal stenosis. 4. Hypertension. 5. Diabetes. 6. Chronic kidney disease. PLAN 1. Agree with IV Levaquin and azithromycin for now. White cell count is improving. 2. Nebulizer treatment. 3. Continue antihypertensive medications. Thank you for this consult. We will continue to follow along with you. Job#: [id number] JONAS
[2018-06-02] MEDS: VANCOMYCIN 1GM/NS 250 ML 250 ML IV SCH (16:18)
[2018-06-02] MEDS: AMITRIPTYLINE HCL 25 MG TAB PEG SCH (23:19)
[2018-06-03] VITALS (11 sets, daily range): BP systolic 99–120; BP diastolic 49–71
[2018-06-03] MEDS: ALBUTEROL SULF 0.083% NEB SOLN 3 ML NEB NEB SCH ×6 (02:55→21:25)
[2018-06-03] MEDS: IPRATROPIUM BROMIDE 0.02% 2.5 ML NEB NEB SCH ×6 (02:55→21:25)
[2018-06-03 05:31] LABS: BASOPHILS # (AUTO) 0.1 (0.0-0.1); BASOPHILS % 0.4 % (0.0-1.0); EOSINOPHILS # (AUTO) 0.2 (0.0-0.4); EOSINOPHILS % 1.2 % (0.0-6.0); HEMATOCRIT 40.7 % (34.2-44.1); HEMOGLOBIN 13.2 g/dL (12.0-16.0); LYMPHOCYTES # (AUTO) 0.8 (1.0-3.2); LYMPHOCYTES % 4.9 % (18.0-39.1); MEAN CORPUSCULAR HEMOGLOBIN 27.3 pg (28-32); MEAN CORPUSCULAR HGB CONC 32.4 g/dL (31-35); MEAN CORPUSCULAR VOLUME 84.1 fL (81-99); MONOCYTES # (AUTO) 1.2 (0.2-0.8); MONOCYTES % 7.4 % (4.4-11.3); NEUTROPHILS # (AUTO) 14.2 (2.1-6.9); NEUTROPHILS % 84.2 % (38.7-80.0); PLATELET COUNT 138 x10e3/uL (140-360); RED BLOOD COUNT 4.84 x10e6/uL (3.6-5.1); RED CELL DISTRIBUTION WIDTH 13.8 % (11.7-14.4)
[2018-06-03 05:48] LABS: ANION GAP 16.3 mmol/L (8-16); CALCIUM 8.8 mg/dL (8.4-10.2); CREATININE, SERUM 1.14 mg/dL (0.57-1.11); MAGNESIUM 1.6 MG/DL (1.3-2.1); POTASSIUM 3.3 mmol/L (3.5-5.1)
[2018-06-03] MEDS: LEVOTHYROXINE SODIUM 50 MCG TAB PEG SCH (06:00)
[2018-06-03] MEDS: ACETAMINOPHEN/CODEINE 300MG - 30MG TAB PEG SCH ×4 (06:00→23:36)
[2018-06-03] MEDS: GUAIFENESIN 200 MG/10 ML UDC PEG SCH ×4 (06:00→23:36)
[2018-06-03] MEDS ORDERED: ACETAMINOPHEN 1000 MG/100 ML IV STA (06:26)
[2018-06-03] MEDS: SODIUM CHLORIDE 0.9% 1000ML 1,000 ML IV SCH ×2 (06:26→15:57)
--- NOTE | 2018-06-03 06:26 | Diagnostic Imaging Report ---
EXAMINATION: Head CT without contrast. HISTORY:Fall. COMPARISON:None. TECHNIQUE: Multidetector axial images were obtained from the foramen magnum to the vertex without contrast. The images were reconstructed using brain and bone algorithms. Thin section brain images were reformatted into coronal and sagittal planes. Dose modulation, iterative reconstruction, and/or weight based adjustment of the mA/kV was utilized to reduce the radiation dose to as low as reasonably achievable. Intravenous contrast: None IMAGE QUALITY: Acceptable. FINDINGS: Skull/scalp: No lytic or blastic. lesions. No surgical changes. Parenchyma: No abnormal density. No acute hemorrhage, mass or acute major vascular territorial infarct. Arteries: No density suggestive of thrombosis. Dural sinuses: No abnormal density suggestive of thrombosis. Ventricles: No hydrocephalus or displacement. Extra-axial spaces: No abnormal density. Brain volume: Mild generalized cerebral volume loss. Craniocervical junction: No mass, Chiari malformation, or basilar invagination. Sella: No mass. Paranasal/mastoid sinuses: Partial opacification of the posterior aspect of bilateral mastoid air cells. IMPRESSION: No acute intracranial abnormality. Mild generalized cerebral volume loss. Signed by: Dr. Tarsha Liu M.D. on 06/03/2018 6:22 AM
--- NOTE | 2018-06-03 07:10 | Diagnostic Imaging Report ---
FEMUR 2 VIEWS MINIMUM LEFT HISTORY: Status post fall COMPARISON: 06/03/2018 pelvic x-ray and 01/13/2018 KUB FINDINGS: Bones: Chronic fracture dislocation of the left hip Extensive periosteal reaction noted in the distribution of the intertrochanteric line Joints: Complete deformity and dislocation of the left hip joint Soft tissues: The soft tissues appear unremarkable. IMPRESSION: Chronic fracture dislocation of the left hip joint, stable since 2017 Signed by: Dr. Cristhian Echeverria M.D. on 06/03/2018 7:06 AM
--- NOTE | 2018-06-03 07:11 | Diagnostic Imaging Report ---
PELVIS AP 1-2 VIEWS HISTORY: Status post fall COMPARISON: None FINDINGS: Bones: No acute displaced fracture. Joints: Complete chronic dislocation of left hip joint with posttraumatic changes Soft tissues: The soft tissues appear unremarkable. IMPRESSION: No acute osseous abnormality. Chronic fracture dislocation of the left hip Signed by: Dr. Cristhian Echeverria M.D. on 06/03/2018 7:08 AM
--- NOTE | 2018-06-03 07:11 | Diagnostic Imaging Report ---
FEMUR TWO VIEW MINIMUM RIGHT HISTORY: Pain status post fall COMPARISON: None FINDINGS: Bones: No displaced fracture. Osseous alignment is within normal limits. Joints: Tricompartmental degenerative joint disease of the partially visualized right knee Soft tissues: The soft tissues appear unremarkable. IMPRESSION: No acute radiographic abnormality. Degenerative changes of the right knee Signed by: Dr. Cristhian Echeverria M.D. on 06/03/2018 7:07 AM
[2018-06-03] MEDS: METOCLOPRAMIDE HCL 10MG/10ML UDC PEG SCH ×3 (09:00→20:17)
[2018-06-03] MEDS: SITAGLIPTIN 100 MG TAB PEG SCH (09:00)
[2018-06-03] MEDS: BALSAM PERU/CASTOR OIL 60 GM OINT...G. TP SCH (09:00)
[2018-06-03] MEDS: ALLOPURINOL 100 MG TAB PEG SCH (09:00)
[2018-06-03] MEDS: AZITHROMYCIN 500MG/NS 250 ML 250 ML IV SCH (09:00)
[2018-06-03] MEDS: POTASSIUM CHLORIDE 20MEQ/15ML UDC PEG SCH (09:00)
[2018-06-03] MEDS: FAMOTIDINE 20 MG/2 ML VIAL IV SCH ×2 (09:00→17:00)
[2018-06-03] MEDS: NYSTATIN 15 GM POWDER UD BTL TOP SCH (09:00)
[2018-06-03] MEDS: METOPROLOL TARTRATE 25 MG TAB PEG SCH ×2 (09:00→20:17)
[2018-06-03] MEDS: LEVOFLOXACIN 750MG/D5W 150ML 150 ML IV SCH (09:00)
[2018-06-03] MEDS: INSULIN LISPRO 100 UNIT/1 ML 3ML VIAL SQ SCH ×4 (11:17→20:04)
[2018-06-03] MEDS ORDERED: MAGNESIUM SULFATE 2GM/50ML 50 ML IV ONE (15:30)
[2018-06-03] MEDS ORDERED: POTASSIUM CHLORIDE 20MEQ/100ML 100 ML IV ONE (17:30)
[2018-06-03] MEDS: AMITRIPTYLINE HCL 25 MG TAB PEG SCH (20:17)
[2018-06-03] MEDS: VANCOMYCIN HCL 1.25 GM in SODIUM CHLORIDE 0.9% 250ML 300 ML IV SCH (20:26)
[2018-06-03] MEDS ORDERED: MORPHINE SULFATE 2 MG/ML SYR IV PRN (21:00)
[2018-06-03] MEDS ORDERED: MEROPENEM 1 GM VIAL ONE (22:29)
[2018-06-03] MEDS: MEROPENEM 1GM 100 ML IV SCH (22:53)
[2018-06-04] VITALS: BP 93/73
--- NOTE | 2018-06-04 02:16 | Consultation ---
DATE OF CONSULTATION: REASON FOR CONSULTATION: Aspiration. HISTORY OF PRESENT ILLNESS: This patient who is known to me from before, she is a very pleasant 68-year-old white female who has history of obesity, history of tracheal stenosis with chronic history of C. diff colitis before, obesity, diabetes mellitus, hypertension, chronic kidney disease, and hypothyroidism. The patient comes into the emergency room with shortness of breath and cough, and she was choking on food. Patient comes into the emergency room. She was evaluated. She is being admitted. Infectious disease was consulted. She is currently alert and oriented, lying in bed comfortably. She has no complaints. Patient comes in from a [facility] apparently. PAST MEDICAL HISTORY: As mentioned above. PAST SURGICAL HISTORY: Appendectomy and trach. ALLERGIES: PENICILLIN. SOCIAL HISTORY: There is no smoking, drug abuse, or alcohol abuse. She used to be in a [facility]. PHYSICAL EXAMINATION GENERAL: At the present time, she is alert and oriented, does not seem to be in acute distress. VITALS: Stable. Currently afebrile but she did have fever earlier today. HEENT: Normocephalic. She is not icteric. CHEST: Few crackles, bilateral. COR: S1 and S2. No S3, S4, or murmur. ABDOMEN: Soft. Bowel sounds present. No tenderness. EXTREMITIES: No edema. SKIN: No rash. She had a chest x-ray when she first came, showed a new left perihilar opacity. IMPRESSION AND PLAN 1. Aspiration pneumonia in a patient who is well known to have history of . She was recently in the hospital. I would recommend to put her on vancomycin and meropenem. Discontinue the current choice of IV antibiotics, azithromycin and Levaquin. We will increase the dose of vancomycin since she remains fever. I am aware of her sensitivity to PENICILLIN. If I remember correctly, she did well last time I gave her the meropenem. 2. History of Clostridium difficile, seems to be stable for now. 3. Obesity. 4. We will recheck complete blood count, initiate chemistry panel, and follow vancomycin trough with the 1st dose. Further recommendations to follow. Job#: [id number] ANYA
[2018-06-04] MEDS: ALBUTEROL SULF 0.083% NEB SOLN 3 ML NEB NEB SCH ×6 (02:58→23:10)
[2018-06-04] MEDS: IPRATROPIUM BROMIDE 0.02% 2.5 ML NEB NEB SCH ×6 (02:58→23:10)
[2018-06-04] MEDS: GUAIFENESIN 200 MG/10 ML UDC PEG SCH ×4 (05:18→20:56)
[2018-06-04] MEDS: LEVOTHYROXINE SODIUM 50 MCG TAB PEG SCH (05:18)
[2018-06-04] MEDS: SODIUM CHLORIDE 0.9% 1000ML 1,000 ML IV SCH (05:18)
[2018-06-04] MEDS: ACETAMINOPHEN/CODEINE 300MG - 30MG TAB PEG SCH ×4 (05:19→20:56)
[2018-06-04] MEDS: VANCOMYCIN HCL 1.25 GM in SODIUM CHLORIDE 0.9% 250ML 300 ML IV SCH ×2 (05:23→18:06)
[2018-06-04] MEDS ORDERED: MEROPENEM 1 GM VIAL ONE (05:44)
[2018-06-04] MEDS: MEROPENEM 1GM 100 ML IV SCH ×3 (05:46→21:57)
[2018-06-04] MEDS: ACETYLCYSTEINE 20% INHAL SOLN 30 ML VIAL INH PRN ×2 (07:20→10:45)
[2018-06-04] MEDS: INSULIN LISPRO 100 UNIT/1 ML 3ML VIAL SQ SCH ×4 (07:30→20:56)
[2018-06-04] MEDS ORDERED: CHOLESTYRAMINE 4 GM PACKET PO PRN (07:45)
[2018-06-04 08:00] VITALS: BP 112/52
[2018-06-04 08:03] LABS: BASOPHILS # (AUTO) 0.1 (0.0-0.1); BASOPHILS % 0.5 % (0.0-1.0); EOSINOPHILS # (AUTO) 0.2 (0.0-0.4); EOSINOPHILS % 1.3 % (0.0-6.0); HEMATOCRIT 40.6 % (34.2-44.1); HEMOGLOBIN 12.9 g/dL (12.0-16.0); LYMPHOCYTES # (AUTO) 1.1 (1.0-3.2); LYMPHOCYTES % 6.4 % (18.0-39.1); MEAN CORPUSCULAR HEMOGLOBIN 27.4 pg (28-32); MEAN CORPUSCULAR HGB CONC 31.8 g/dL (31-35); MEAN CORPUSCULAR VOLUME 86.2 fL (81-99); MONOCYTES % 6.1 % (4.4-11.3); NEUTROPHILS % 84.1 % (38.7-80.0); PLATELET COUNT 111 x10e3/uL (140-360); RED BLOOD COUNT 4.71 x10e6/uL (3.6-5.1); RED CELL DISTRIBUTION WIDTH 14.1 % (11.7-14.4)
[2018-06-04 08:18] LABS: ANION GAP 17.3 mmol/L (8-16); BLOOD UREA NITROGEN 24 mg/dL (7-26); BUN/CREATININE RATIO 30 (6-25); CALCIUM 8.6 mg/dL (8.4-10.2); CARBON DIOXIDE 15 mmol/L (22-29); CHLORIDE 107 mmol/L (98-107); EST GLOMERULAR FILTRATION RATE > 60 ML/MIN (60-); GLUCOSE 100 mg/dL (74-118); MAGNESIUM 1.8 MG/DL (1.3-2.1); POTASSIUM 3.3 mmol/L (3.5-5.1); SODIUM 136 mmol/L (136-145)
[2018-06-04] MEDS: DEXTROSE 5%/0.9% SOD CHL 1,000 ML IV SCH ×2 (08:53→18:03)
[2018-06-04] MEDS: SITAGLIPTIN 100 MG TAB PEG SCH (09:00)
[2018-06-04] MEDS: METOCLOPRAMIDE HCL 10MG/10ML UDC PEG SCH ×3 (09:00→20:56)
[2018-06-04] MEDS: METOPROLOL TARTRATE 25 MG TAB PEG SCH ×2 (09:00→20:55)
[2018-06-04] MEDS: POTASSIUM CHLORIDE 20MEQ/15ML UDC PEG SCH (09:00)
[2018-06-04] MEDS: ALLOPURINOL 100 MG TAB PEG SCH (09:00)
[2018-06-04] MEDS: FAMOTIDINE 20 MG/2 ML VIAL IV SCH ×2 (09:24→17:55)
[2018-06-04] MEDS: BALSAM PERU/CASTOR OIL 60 GM OINT...G. TP SCH (09:25)
[2018-06-04] MEDS: NYSTATIN 15 GM POWDER UD BTL TOP SCH (09:25)
[2018-06-04 12:00] VITALS: BP 119/61
[2018-06-04] MEDS ORDERED: POTASSIUM CHLORIDE 20MEQ/100ML 100 ML IV PRN (12:00)
[2018-06-04 19:36] VITALS: BP 119/61
[2018-06-04] MEDS: AMITRIPTYLINE HCL 25 MG TAB PEG SCH (20:55)
[2018-06-04 21:04] VITALS: BP 119/66
[2018-06-04 21:58] VITALS: BP 119/66
[2018-06-05] VITALS: BP 102/56
[2018-06-05] MEDS: IPRATROPIUM BROMIDE 0.02% 2.5 ML NEB NEB SCH ×6 (03:35→23:20)
[2018-06-05] MEDS: ALBUTEROL SULF 0.083% NEB SOLN 3 ML NEB NEB SCH ×6 (03:35→23:20)
[2018-06-05 04:45] LABS: BASOPHILS # (AUTO) 0.1 (0.0-0.1); BASOPHILS % 0.4 % (0.0-1.0); EOSINOPHILS # (AUTO) 0.3 (0.0-0.4); HEMATOCRIT 39.3 % (34.2-44.1); HEMOGLOBIN 12.5 g/dL (12.0-16.0); LYMPHOCYTES # (AUTO) 1.1 (1.0-3.2); LYMPHOCYTES % 8.1 % (18.0-39.1); MEAN CORPUSCULAR HEMOGLOBIN 27.6 pg (28-32); MEAN CORPUSCULAR HGB CONC 31.8 g/dL (31-35); MEAN CORPUSCULAR VOLUME 86.8 fL (81-99); MONOCYTES % 7.3 % (4.4-11.3); NEUTROPHILS # (AUTO) 10.8 (2.1-6.9); NEUTROPHILS % 80.6 % (38.7-80.0); PLATELET COUNT 104 x10e3/uL (140-360); RED BLOOD COUNT 4.53 x10e6/uL (3.6-5.1); RED CELL DISTRIBUTION WIDTH 14.3 % (11.7-14.4)
[2018-06-05] MEDS: LEVOTHYROXINE SODIUM 50 MCG TAB PEG SCH (05:07)
[2018-06-05] MEDS: ACETAMINOPHEN/CODEINE 300MG - 30MG TAB PEG SCH ×3 (05:07→17:17)
[2018-06-05] MEDS: GUAIFENESIN 200 MG/10 ML UDC PEG SCH ×3 (05:07→17:17)
[2018-06-05 05:11] LABS: ANION GAP 14.3 mmol/L (8-16); BLOOD UREA NITROGEN 15 mg/dL (7-26); BUN/CREATININE RATIO 21 (6-25); CALCIUM 8.7 mg/dL (8.4-10.2); CARBON DIOXIDE 18 mmol/L (22-29); CHLORIDE 113 mmol/L (98-107); EST GLOMERULAR FILTRATION RATE > 60 ML/MIN (60-); GLUCOSE 133 mg/dL (74-118); MAGNESIUM 1.3 MG/DL (1.3-2.1); POTASSIUM 3.3 mmol/L (3.5-5.1); SODIUM 142 mmol/L (136-145)
[2018-06-05] MEDS: MEROPENEM 1GM 100 ML IV SCH ×3 (05:40→22:39)
[2018-06-05] MEDS: VANCOMYCIN HCL 1.25 GM in SODIUM CHLORIDE 0.9% 250ML 300 ML IV SCH ×2 (05:40→17:17)
[2018-06-05] MEDS: DEXTROSE 5%/0.9% SOD CHL 1,000 ML IV SCH ×2 (05:40→14:46)
--- NOTE | 2018-06-05 06:59 | Diagnostic Imaging Report ---
EXAMINATION: CHEST SINGLE (PORTABLE) INDICATION: Pneumonia. COMPARISON: 06/01/2018 FINDINGS: TUBES and LINES: Tracheostomy tube is stable in good position. LUNGS: Lungs are not well inflated. There are bibasilar atelectasis. Confluent airspace opacity in the left perihilar region and left lower lobe is suspicious for early pneumonia PLEURA: No pleural effusion or pneumothorax. HEART AND MEDIASTINUM: Cardiac size is mildly enlarged. There are atherosclerotic calcifications within the aorta. BONES AND SOFT TISSUES: No acute osseous lesion. Soft tissues are unremarkable. UPPER ABDOMEN: No free air under the diaphragm. IMPRESSION: Findings in the left perihilar region are suspicious for developing pneumonia Signed by: Dr. Cristhian Echeverria M.D. on 06/05/2018 6:55 AM
[2018-06-05] MEDS ORDERED: POTASSIUM CHLORIDE 20MEQ/100ML 100 ML IV ONE (07:30)
[2018-06-05 07:40] VITALS: BP 115/60
[2018-06-05 08:05] VITALS: BP 115/60
[2018-06-05] MEDS: SITAGLIPTIN 100 MG TAB PEG SCH (08:11)
[2018-06-05] MEDS: POTASSIUM CHLORIDE 20MEQ/15ML UDC PEG SCH (08:11)
[2018-06-05] MEDS: METOPROLOL TARTRATE 25 MG TAB PEG SCH ×2 (08:11→22:39)
[2018-06-05] MEDS: METOCLOPRAMIDE HCL 10MG/10ML UDC PEG SCH ×3 (08:12→22:39)
[2018-06-05] MEDS: BALSAM PERU/CASTOR OIL 60 GM OINT...G. TP SCH (08:12)
[2018-06-05] MEDS: ALLOPURINOL 100 MG TAB PEG SCH (08:12)
[2018-06-05] MEDS: NYSTATIN 15 GM POWDER UD BTL TOP SCH (08:12)
[2018-06-05] MEDS: FAMOTIDINE 20 MG/2 ML VIAL IV SCH ×2 (09:22→17:17)
[2018-06-05] MEDS: INSULIN LISPRO 100 UNIT/1 ML 3ML VIAL SQ SCH ×4 (09:24→21:54)
[2018-06-05 11:39] VITALS: BP 125/68
--- NOTE | 2018-06-05 14:41 | Operative Report ---
DATE OF PROCEDURE: June 05, 2018 REFERRING PHYSICIAN: Dr. Ilan Stein. PROCEDURE PERFORMED: Esophagogastroduodenoscopy and percutaneous endoscopic gastrotomy tube replacement. INDICATIONS FOR PROCEDURE: Patient with dysphagia, PEG tube dependent, PEG tube dislodged. Patient is in for EGD and PEG tube replacement. MEDICATION: Patient was done under MAC. Please see anesthesiologist's note. PROCEDURE: With the patient in the supine position, the flexible fiberoptic Olympus gastroscope was introduced into the esophagus under direct visualization without any difficulty. There was some liquid debris noted in the esophagus. There was some mild but diffuse erythema noted also. The scope was then advanced with ease into the stomach, traversing a small hiatal hernia. Mucosa overlying the antrum and the body revealed some patchy areas of erythema. Pylorus was of normal contour and shape, was intubated with ease, and the scope was advanced all the way to the 2nd portion of the duodenum. The scope was then withdrawn slowly, and mucosa overlying the proximal 2nd portion and the duodenal bulb grossly appeared to be within normal limits. The scope was then withdrawn back into the stomach and retroflexed, and the mucosa overlying the fundus grossly appeared to be within normal limits. The previously described hiatal hernia was also noted in the retroflexed position. The scope was then straightened out, and the PEG tube replacement was carried out in the usual fashion through the old G-tube stoma. The scope was subsequently withdrawn after documenting a good positioning of the intragastric bumper. Patient tolerated procedure well. IMPRESSION: 1. Distal esophagitis, mild. 2. Small hiatal hernia. 3. Gastritis. 4. Percutaneous endoscopic gastrotomy tube inserted in the usual fashion through the old G-tube stoma. Patient tolerated procedure well. PLAN: Resume G-tube feedings upon return to floor. Job#: [id number] EV cc:ILAN STEIN MD
--- NOTE | 2018-06-05 15:11 | Diagnostic Imaging Report ---
Exam: Left shoulder 2 views History: Pain Comparison: None. Findings: No fracture or malalignment. Advanced glenohumeral degenerative arthrosis with narrowing and osteophytosis. Calcified bodies in the axillary recess. Impression: No acute osseous abnormality Advanced glenohumeral degenerative arthrosis. Signed by: Dr. Сергей Balderas M.D. on 06/05/2018 3:07 PM
--- NOTE | 2018-06-05 15:13 | Diagnostic Imaging Report ---
Exam: Right and left wrist 2 views each History: Pain, fall Comparison: None. Findings: No acute fracture. Left wrist mild scapholunate widening and arthrosis involving the first CMC joint and radiocarpal joint. Right wrist ligamentous anchor to the scaphoid with diffuse carpal crowding and arthrosis involving the radiocarpal joint and first CMC joint. Impression: No acute osseous abnormality Signed by: Dr. Сергей Balderas M.D. on 06/05/2018 3:09 PM
[2018-06-05 15:52] VITALS: BP 129/61
[2018-06-05] MEDS ORDERED: PROPOFOL IV EMULSION 10 MG/ML 50 ML VIAL ONE (17:23)
[2018-06-05] MEDS ORDERED: LIDOCAINE HCL 2% LOCAL INJ 5 ML SDV VIAL INJ ONE (17:23)
[2018-06-05 20:29] VITALS: BP 110/62
[2018-06-05] MEDS: AMITRIPTYLINE HCL 25 MG TAB PEG SCH (22:39)
[2018-06-06] MEDS: GUAIFENESIN 200 MG/10 ML UDC PEG SCH ×3 (00:40→13:19)
[2018-06-06] MEDS: ACETAMINOPHEN/CODEINE 300MG - 30MG TAB PEG SCH ×3 (00:40→13:19)
[2018-06-06] MEDS: ALBUTEROL SULF 0.083% NEB SOLN 3 ML NEB NEB SCH ×4 (03:07→14:43)
[2018-06-06] MEDS: IPRATROPIUM BROMIDE 0.02% 2.5 ML NEB NEB SCH ×4 (03:07→14:43)
[2018-06-06 05:08] LABS: BASOPHILS % 0.4 % (0.0-1.0); EOSINOPHILS # (AUTO) 0.3 (0.0-0.4); EOSINOPHILS % 3.3 % (0.0-6.0); HEMATOCRIT 37.7 % (34.2-44.1); HEMOGLOBIN 12.1 g/dL (12.0-16.0); LYMPHOCYTES # (AUTO) 1.4 (1.0-3.2); LYMPHOCYTES % 14.7 % (18.0-39.1); MEAN CORPUSCULAR HEMOGLOBIN 27.8 pg (28-32); MEAN CORPUSCULAR HGB CONC 32.1 g/dL (31-35); MEAN CORPUSCULAR VOLUME 86.5 fL (81-99); MONOCYTES # (AUTO) 0.7 (0.2-0.8); MONOCYTES % 7.6 % (4.4-11.3); NEUTROPHILS % 71.3 % (38.7-80.0); PLATELET COUNT 94 x10e3/uL (140-360); RED BLOOD COUNT 4.36 x10e6/uL (3.6-5.1); RED CELL DISTRIBUTION WIDTH 14.5 % (11.7-14.4)
[2018-06-06 05:28] LABS: ANION GAP 12.5 mmol/L (8-16); BLOOD UREA NITROGEN 15 mg/dL (7-26); BUN/CREATININE RATIO 20 (6-25); CALCIUM 8.8 mg/dL (8.4-10.2); CARBON DIOXIDE 20 mmol/L (22-29); CHLORIDE 118 mmol/L (98-107); CREATININE, SERUM 0.76 mg/dL (0.57-1.11); EST GLOMERULAR FILTRATION RATE > 60 ML/MIN (60-); GLUCOSE 127 mg/dL (74-118); MAGNESIUM 1.5 MG/DL (1.3-2.1); POTASSIUM 3.5 mmol/L (3.5-5.1); SODIUM 147 mmol/L (136-145)
[2018-06-06] MEDS: MEROPENEM 1GM 100 ML IV SCH ×2 (05:39→14:00)
[2018-06-06] MEDS: LEVOTHYROXINE SODIUM 50 MCG TAB PEG SCH (05:39)
[2018-06-06] MEDS: VANCOMYCIN HCL 1.25 GM in SODIUM CHLORIDE 0.9% 250ML 300 ML IV SCH (06:30)
[2018-06-06 07:14] LABS: ANISOCYTOSIS SLIGHT; BAND NEUTROPHILS % (MANUAL) 1 %; EOSINOPHILS % (MANUAL) 3 % (0-7); LYMPHOCYTES % (MANUAL) 16 % (19-48); MONOCYTES % (MANUAL) 10 % (3.4-9.0); MYELOCYTES % (MANUAL) 2 % (0-0); NEUTROPHILS % (MANUAL) 67 % (40-74); PLATELET ESTIMATE SLIGHTLY DECREASED; PLATELET MORPHOLOGY COMMENT NORMAL; RBC MORPHOLOGY COMMENT NORMAL; TOXIC GRANULATION SLIGHT
[2018-06-06 08:17] VITALS: BP 118/58
[2018-06-06] MEDS: POTASSIUM CHLORIDE 20MEQ/15ML UDC PEG SCH (08:40)
[2018-06-06] MEDS: ALLOPURINOL 100 MG TAB PEG SCH (08:40)
[2018-06-06] MEDS: BALSAM PERU/CASTOR OIL 60 GM OINT...G. TP SCH (08:40)
[2018-06-06] MEDS: FAMOTIDINE 20 MG/2 ML VIAL IV SCH (08:40)
[2018-06-06] MEDS: METOCLOPRAMIDE HCL 10MG/10ML UDC PEG SCH ×2 (08:40→16:14)
[2018-06-06] MEDS: SITAGLIPTIN 100 MG TAB PEG SCH (08:40)
[2018-06-06] MEDS: METOPROLOL TARTRATE 25 MG TAB PEG SCH (08:40)
[2018-06-06] MEDS: NYSTATIN 15 GM POWDER UD BTL TOP SCH (08:40)
[2018-06-06] MEDS: INSULIN LISPRO 100 UNIT/1 ML 3ML VIAL SQ SCH ×2 (08:41→13:35)
[2018-06-06] MEDS ORDERED: CHOLESTYRAMINE L4 GM PO (08:41)
[2018-06-06 16:16] VITALS: BP 112/59
--- NOTE | 2018-06-06 23:29 | Discharge Summary ---
ADMISSION DIAGNOSES 1. Aspiration pneumonia present on pneumonia. 2. Type 2 diabetes. 3. Hypertension. 4. Acute kidney injury versus chronic kidney disease. 5. Diarrhea. 6. Neuropathy. 7. Hypothyroidism. 8. Gout. 9. Obesity. DISCHARGE DIAGNOSES 1. Aspiration pneumonia present on pneumonia. 2. Type 2 diabetes. 3. Hypertension. 4. Acute kidney injury versus chronic kidney disease. 5. Diarrhea. 6. Neuropathy. 7. Hypothyroidism. 8. Gout. 9. Obesity. 10. Rule out Clostridium difficile. 11. Status post fall. 12. Percutaneous endoscopic gastrostomy replacement. HISTORY: The patient has a history of respiratory failure secondary to tracheal stenosis, trach, diabetes type 2, asthma, chronic bronchitis, pneumonia, hypertension, C. diff, CKD, UTI, GERD, hypothyroidism, PVD, neuropathy, gout. Surgical history of tonsillectomy, hysterectomy, trach placement, PEG placement, left hip replacement. No known family history. No tobacco, alcohol or drug use. HOSPITAL COURSE: A 68-year-old female, complains of coughing while eating liquids by mouth and food coming out of her trach site that started yesterday. She was cleared by speech therapy for a full liquid diet about a week ago. She complains of a cough intermittently and vomiting with food by mouth. She denies fever. On admission, the patient had a chest x-ray that showed new left perihilar opacity, may reflect pneumonia or atelectasis. The patient started on azithromycin, vancomycin, Mucinex nebs and pulmonary consulted as well as ID. The patient resumed on home medicine for diabetes, blood pressure, thyroid, neuropathy, gout. Dietary restrictions for obesity. The patient complained of diarrhea, so a C. diff was drawn which was negative. The patient was started on IV fluid to correct the kidney injury. Overnight on the , the patient had a fall as she was dreaming that she could walk and ended up falling out of the bed and accidentally pulling her PEG out was which was hooked up to the tube feeding at that time. The patient had a pelvic x-ray that was negative except the chronic fracture and dislocation of the left hip. Left femur x-ray was negative besides the chronic dislocation. Right femur x-ray negative. Chest x-ray showed pneumonia. Left shoulder x-ray showed no acute abnormality. The patient also had bilateral wrist x-rays that were negative. Blood cultures were negative. The initial blood cultures showed coag-negative Staph which appeared contaminated. The repeats were negative. The patient also had had her PEG replaced on June 05 and had an EGD which showed mild esophagitis, small hiatal hernia, gastritis. The patient was resumed on her home medicines/free water and tube feeding. The patient is feeling much better and ready to go home. She was also given MBS which showed aspiration. Per speech therapy recommendations, she can have occasional ice chips and they have recommended an MBS 12 sessions even at home. Case management was consulted to resume all orders for home health and an MBS therapy. The patient understands discharge instructions and agrees to plan. Vital signs stable, the patient is afebrile. Dictated by Pilar Rollins NP. ILAN SALCEDO MD Job#: [id number]
--- NOTE | 2018-06-07 08:18 | Diagnostic Imaging Report ---
PROCEDURE:X-RAY MODIFIED BARIUM SWALLOW COMPARISON:None. INDICATIONS:Not provided. DISCUSSION:Fluoroscopic examination was performed in conjunction with speech pathology, during swallowing of a variety of thin and thick liquid consistencies. CONCLUSION:Laryngeal penetration and juan aspiration were noted with thin and nectar thick liquids. Please see the report from speech pathology for complete details. Dictated by: Duane Whelan M.D. on 06/07/2018 at 8:25 Electronically approved by: Duane Whelan M.D. on 06/07/2018 at 8:25
== END 2018-06-06 18:21 | disposition home health service (06) | DRG 871 ==
LOC: ER 11:32 → ERHOLD 14:13 → MED/SURG2 15:16
PROVIDERS: ADMIT Internal Medicine; ATTEND Internal Medicine
PROC: 0D20XUZ Change Feeding Device in Upper Intestinal Tract, External Approach (ICD-10-PCS; principal; 2018-06-05 13:10)
DX: A41.9 Sepsis, unspecified organism (principal); J69.0 Pneumonitis due to inhalation of food and vomit; J96.10 Chronic respiratory failure, unspecified whether with hypoxia or hypercapnia; N17.9 Acute kidney failure, unspecified; E87.1 Hypo-osmolality and hyponatremia; E87.0 Hyperosmolality and hypernatremia; R65.20 Severe sepsis without septic shock; I12.9 Hypertensive chronic kidney disease with stage 1 through stage 4 chronic kidney disease, or unspecified chronic kidney disease; E11.22 Type 2 diabetes mellitus with diabetic chronic kidney disease; K21.9 Gastro-esophageal reflux disease without esophagitis; E03.9 Hypothyroidism, unspecified; E11.42 Type 2 diabetes mellitus with diabetic polyneuropathy; Z88.0 Allergy status to penicillin; Z88.8 Allergy status to other drugs, medicaments and biological substances; M10.9 Gout, unspecified; R19.7 Diarrhea, unspecified; J39.8 Other specified diseases of upper respiratory tract; K94.29 Other complications of gastrostomy; K20.9 Esophagitis, unspecified; K44.9 Diaphragmatic hernia without obstruction or gangrene; K29.70 Gastritis, unspecified, without bleeding; Z68.35 Body mass index [BMI] 35.0-35.9, adult; E83.42 Hypomagnesemia; E87.6 Hypokalemia; D69.6 Thrombocytopenia, unspecified; E66.01 Morbid (severe) obesity due to excess calories; N18.3 Chronic kidney disease, stage 3 (moderate); M84.459D Pathological fracture, hip, unspecified, subsequent encounter for fracture with routine healing; Z96.642 Presence of left artificial hip joint; Z79.4 Long term (current) use of insulin
CPT/HCPCS: 36415; 43246; 70450; 71045; 72170; 74230; 80048; 80053; 82550; 82553; 82948; 83605; 83735; 83880; 84439; 84443; 84484; 85025; 87040; 87071; 87205; 87493; 93005; 94640; 99284; J0456; J2001; J2185; J2270; J3370; J3480; J7030; J7042; J7050

== ENCOUNTER 2018-06-21 12:44 | Inpatient (IN) | payer MEDICARE, OTHER ==
[~2018-06-21] VITALS: Ht 172.7 cm; Wt 98.2 kg
[2018-06-21 14:36] LABS: BASOPHILS % 0.3 % (0.0-1.0); EOSINOPHILS # (AUTO) 0.1 (0.0-0.4); EOSINOPHILS % 1.9 % (0.0-6.0); HEMATOCRIT 40.2 % (34.2-44.1); HEMOGLOBIN 13.4 g/dL (12.0-16.0); LYMPHOCYTES # (AUTO) 1.6 (1.0-3.2); LYMPHOCYTES % 20.9 % (18.0-39.1); MEAN CORPUSCULAR HEMOGLOBIN 27.7 pg (28-32); MEAN CORPUSCULAR HGB CONC 33.3 g/dL (31-35); MEAN CORPUSCULAR VOLUME 83.1 fL (81-99); MONOCYTES # (AUTO) 1.3 (0.2-0.8); MONOCYTES % 17.1 % (4.4-11.3); NEUTROPHILS # (AUTO) 4.4 (2.1-6.9); NEUTROPHILS % 58.9 % (38.7-80.0); PLATELET COUNT 113 x10e3/uL (140-360); RED BLOOD COUNT 4.84 x10e6/uL (3.6-5.1); RED CELL DISTRIBUTION WIDTH 15.3 % (11.7-14.4)
[2018-06-21 14:44] LABS: BILIRUBIN,URINE NEGATIVE (NEGATIVE); CLARITY,URINE CLEAR (CLEAR); COLOR,URINE YELLOW (YELLOW); KETONES,URINE 1+ (NEGATIVE); LEUKOCYTE ESTERASE ,URINE TRACE (NEGATIVE); NITRITE,URINE NEGATIVE (NEGATIVE); PROTEIN,URINE DIPSTICK TRACE (NEGATIVE); URINE UROBILINOGEN 0.2 mg/dL (0.2 - 1)
[2018-06-21 14:55] LABS: ALANINE AMINOTRANSFERASE 8 IU/L (0-55); ALBUMIN/GLOBULIN RATIO 0.9 (0.8-2.0); ALKALINE PHOSPHATASE 107 IU/L (40-150); AMORPHOUS SEDIMENT,URINE MODERATE (FEW); AMYLASE 19 U/L (25-125); ANION GAP 18.3 mmol/L (8-16); BACTERIA,URINE MODERATE /HPF; BLOOD UREA NITROGEN 24 mg/dL (7-26); BUN/CREATININE RATIO 29 (6-25); CALCIUM 9.7 mg/dL (8.4-10.2); CARBON DIOXIDE 22 mmol/L (22-29); CHLORIDE 102 mmol/L (98-107); CREATININE, SERUM 0.82 mg/dL (0.57-1.11); EST GLOMERULAR FILTRATION RATE > 60 ML/MIN (60-); GLUCOSE 91 mg/dL (74-118); LIPASE 15 U/L (8-78); POTASSIUM 4.3 mmol/L (3.5-5.1); SODIUM 138 mmol/L (136-145); WBC,URINE (MAN) 0-5 /HPF (0-5)
[2018-06-21] MEDS ORDERED: MORPHINE SULFATE 2 MG/ML SYR IV PRN (15:45)
[2018-06-21] MEDS ORDERED: ONDANSETRON HCL INJ 2 MG/ML VIAL IV PRN (15:45)
[2018-06-21] MEDS ORDERED: CHOLESTYRAMINE 4 GM PACKET PO PRN (16:00)
[2018-06-21] MEDS ORDERED: CLONIDINE HCL 0.1 MG TAB PO PRN (16:00)
[2018-06-21] MEDS ORDERED: SIMETHICONE 80 MG CHEW PO PRN (16:00)
[2018-06-21] MEDS ORDERED: LOPERAMIDE HCL 2 MG CAP PO PRN (16:00)
[2018-06-21] MEDS ORDERED: LORAZEPAM 0.5 MG TAB PEG PRN (16:00)
[2018-06-21 16:08] LABS: PLATELET ESTIMATE ADEQUATE; PLATELET MORPHOLOGY COMMENT NORMAL; RBC MORPHOLOGY COMMENT NORMAL
--- NOTE | 2018-06-21 16:57 | Diagnostic Imaging Report ---
EXAMINATION: CT of the abdomen and pelvis with contrast. TECHNIQUE: Helical CT images of the abdomen and pelvis were performed from the lung bases to the lesser trochanters after the intravenous administration of 150 cc of Isovue 300 and the oral administration of none. Coronal and sagittal reformatted images were obtained.Dose modulation, iterative reconstruction, and/or weight based adjustment of the mA/kV was utilized to reduce the radiation dose to as low as reasonably achievable. COMPARISON: None. CLINICAL HISTORY:Abdominal pain and diarrhea DISCUSSION: ABDOMEN/PELVIS: LOWER THORAX:Unremarkable. HEPATOBILIARY: No focal hepatic lesions. No intra-or extrahepatic biliary ductal dilation. Gallstones versus layering sludge. SPLEEN: No splenomegaly. PANCREAS: No focal masses or ductal dilatation. ADRENALS: No adrenal nodules. KIDNEYS/URETERS: No hydronephrosis, stones, or solid mass lesions. PELVIC ORGANS/BLADDER: The bladder is normal. PERITONEUM/RETROPERITONEUM: No free air or fluid. LYMPH NODES: No intra-abdominal, retroperitoneal, pelvic or inguinal lymphadenopathy. VESSELS: The celiac trunk,superior and inferior mesenteric and bilateral renal arteries are patent The portal, superior mesenteric and splenic veins are patent. GI TRACT: No distention or wall thickening. Gastrostomy tube. Extensive colonic diverticulosis predominantly involving the sigmoid colon. No inflammation. BONES AND SOFT TISSUE Presumed Girdlestone procedure to the left hip. Multilevel thoracolumbar spondylosis. Small fat-containing anterolateral abdominal wall hernia. IMPRESSION: No acute CT finding. Extensive colonic diverticulosis without inflammatory change. Cholelithiasis versus bladder sludge. Signed by: Dr. Сергей Balderas M.D. on 06/21/2018 4:54 PM
[2018-06-21 17:45] VITALS: BP 123/68
[2018-06-21] MEDS ORDERED: METRONIDAZOLE 500MG/NS 100ML IV SCH (18:00)
[2018-06-21] MEDS ORDERED: IOPAMIDOL 370 MG/ML 200 ML INFUS..BTL INJ ONE (18:39)
[2018-06-21] MEDS ORDERED: SODIUM CHLORIDE 0.9% 50ML 50 ML ONE (18:39)
[2018-06-21] MEDS: VANCOMYCIN 250MG/5ML ORAL SOLN PO SCH (18:45)
[2018-06-21] MEDS: ASCORBIC ACID 500 MG TAB PO SCH (18:45)
[2018-06-21] MEDS: ACETAMINOPHEN/CODEINE 300MG - 30MG TAB PO SCH (18:45)
[2018-06-21] MEDS: METRONIDAZOLE 500MG/NS 100ML 100 ML IV SCH (18:45)
[2018-06-21 20:00] VITALS: BP 120/79
[2018-06-21] MEDS: IPRATROPIUM BROMIDE 0.02% 2.5 ML NEB NEB SCH (20:00)
--- NOTE | 2018-06-21 21:02 | Consultation ---
DATE OF CONSULTATION: June 21, 2018 PULMONARY/CRITICAL CARE CONSULTATION HISTORY OF PRESENT ILLNESS: Patient is a 68-year-old woman who had recurrent respiratory failure and pneumonia requiring intubation at [facility]. She subsequently had a tracheostomy placed. There was difficulty removing the tracheostomy, and she was found to have tracheal stenosis based on evaluation from ENT. After being discharged from [facility], she went to the nursing home facility. She required admission to [facility] on 2 separate occasions. ENT was consulted and recommended a specialty consultation by a tracheal stenosis expert at the [facility]. The patient's hospitalizations have also been complicated by C diff colitis. She now returns with lower abdominal pain and diarrhea. She has had no nausea or vomiting. She did not have fevers at home, but she did have a temperature of 99.5. PAST MEDICAL HISTORY: 1. Tracheal stenosis. 2. Prior respiratory failure. 3. History of C diff colitis. 4. Recurrent aspiration. 5. Hypothyroidism. 6. Diabetes. PAST SURGICAL HISTORY: 1. Status post tracheostomy. 2. PEG placement. 3. Hysterectomy. 4. Tonsillectomy. SOCIAL HISTORY: The patient is not a smoker or drinker. Although she was in a SNF previously, she is now living at home. ALLERGIES: SHE IS ALLERGIC TO PENICILLIN WELL HEPARIN. REVIEW OF SYSTEMS: The patient denied fevers at home, but she did have a temperature of 99.5. She reports no headache. She has no neck pain. She does note some nausea. She does not describe any phlegm production or cough. She is not having any chest pain. She does not complain of dyspnea. She does have abdominal pain and diarrhea. She reports some weight loss and some weakness. PHYSICAL EXAMINATION: VITAL SIGNS: The patient is afebrile. The blood pressure is 101/62, and the respiratory rate is 22. The O2 saturation is 100% on a trach collar. Her pulse is 97. HEENT: Examination shows no facial swelling or erythema. The nasal mucosa is normal. The oropharynx is normal. LYMPHATIC: Examination shows no submandibular, cervical or supraclavicular adenopathy. Examination of the tracheostomy site shows no surrounding erythema or drainage. CARDIAC: Exam reveals a regular rate and rhythm with a normal S1 and S2. There are no murmurs or rubs. CHEST: Auscultation of the lungs reveals rhonchus breath sounds bilaterally. There is no wheezing. ABDOMEN: Is soft. There is some right lower quadrant pain. There is no rebound or guarding. EXTREMITIES: Shows no leg edema. There is some muscle atrophy. IMPRESSIONS: 1. Recurrent Clostridium difficile colitis. 2. Recurrent aspiration pneumonitis. 3. Tracheal stenosis. 4. Weight loss. PLAN: 1. Patient will be started on p.o. vancomycin along with IV Flagyl. 2. Stool for C diff. 3. CT scan of the abdomen and pelvis through the ER for emergency department is still pending. 4. Continue tracheostomy care including daily cleaning or changing of the inner cannula and a humidifier trach collar. 5. Physical therapy evaluation. 6. Nutritional consultation and evaluation for any weight loss. Will discuss case with ENT. She will probably require a consultation in the Medical Center for her high-grade tracheal stenosis in the infraglottic region. Job#: [id number] EV
[2018-06-21] MEDS: METOCLOPRAMIDE HCL 10MG/10ML UDC PEG SCH (21:23)
[2018-06-21] MEDS: LORAZEPAM 0.5 MG TAB PO SCH (21:23)
[2018-06-21] MEDS: METOPROLOL TARTRATE 25 MG TAB PO SCH (21:23)
[2018-06-21] MEDS: AMITRIPTYLINE HCL 25 MG TAB PO SCH (21:23)
[2018-06-22] VITALS (7 sets, daily range): BP systolic 97–119; BP diastolic 56–78
[2018-06-22] MEDS: VANCOMYCIN 250MG/5ML ORAL SOLN PO SCH ×4 (00:32→17:45)
[2018-06-22] MEDS: METRONIDAZOLE 500MG/NS 100ML 100 ML IV SCH ×4 (00:32→17:46)
[2018-06-22] MEDS: IPRATROPIUM BROMIDE 0.02% 2.5 ML NEB NEB SCH ×4 (01:00→19:20)
[2018-06-22 04:28] LABS: BASOPHILS # (AUTO) 0.1 (0.0-0.1); BASOPHILS % 0.6 % (0.0-1.0); EOSINOPHILS # (AUTO) 0.3 (0.0-0.4); EOSINOPHILS % 3.1 % (0.0-6.0); HEMATOCRIT 39.9 % (34.2-44.1); HEMOGLOBIN 13.3 g/dL (12.0-16.0); LYMPHOCYTES # (AUTO) 1.5 (1.0-3.2); MEAN CORPUSCULAR HEMOGLOBIN 27.5 pg (28-32); MEAN CORPUSCULAR HGB CONC 33.3 g/dL (31-35); MEAN CORPUSCULAR VOLUME 82.4 fL (81-99); MONOCYTES # (AUTO) 1.4 (0.2-0.8); MONOCYTES % 14.2 % (4.4-11.3); NEUTROPHILS # (AUTO) 6.3 (2.1-6.9); NEUTROPHILS % 65.1 % (38.7-80.0); PLATELET COUNT 109 x10e3/uL (140-360); RED BLOOD COUNT 4.84 x10e6/uL (3.6-5.1); RED CELL DISTRIBUTION WIDTH 15.4 % (11.7-14.4)
[2018-06-22 04:56] LABS: ALANINE AMINOTRANSFERASE 7 IU/L (0-55); ALBUMIN 2.9 g/dL (3.5-5.0); ALBUMIN/GLOBULIN RATIO 0.9 (0.8-2.0); ALKALINE PHOSPHATASE 101 IU/L (40-150); ANION GAP 15.9 mmol/L (8-16); BLOOD UREA NITROGEN 24 mg/dL (7-26); BUN/CREATININE RATIO 27 (6-25); CALCIUM 9.5 mg/dL (8.4-10.2); CARBON DIOXIDE 21 mmol/L (22-29); CHLORIDE 104 mmol/L (98-107); EST GLOMERULAR FILTRATION RATE > 60 ML/MIN (60-); GLUCOSE 106 mg/dL (74-118); MAGNESIUM 1.4 MG/DL (1.3-2.1); POTASSIUM 3.9 mmol/L (3.5-5.1); SODIUM 137 mmol/L (136-145)
[2018-06-22] MEDS: LEVOTHYROXINE SODIUM 50 MCG TAB PO SCH (06:40)
[2018-06-22] MEDS: ACETAMINOPHEN/CODEINE 300MG - 30MG TAB PO SCH ×4 (06:40→17:46)
[2018-06-22] MEDS: ASCORBIC ACID 500 MG TAB PO SCH ×2 (09:00→16:30)
[2018-06-22] MEDS: ALLOPURINOL 100 MG TAB PO SCH (09:00)
[2018-06-22] MEDS: METOPROLOL TARTRATE 25 MG TAB PO SCH ×2 (09:00→21:14)
[2018-06-22] MEDS ORDERED: BALSAM PERU/CASTOR OIL 60 GM OINT...G. TP SCH (09:00)
[2018-06-22] MEDS ORDERED: ALLOPURINOL 300 MG TAB PO SCH (09:00)
[2018-06-22] MEDS: LACTOBACILLUS ACIDOPHILUS CAPSULE PO SCH (09:00)
[2018-06-22] MEDS: METOCLOPRAMIDE HCL 10MG/10ML UDC PEG SCH ×3 (09:00→21:00)
--- NOTE | 2018-06-22 10:07 | Progress Note ---
DATE: Jun 22, 2018 PULMONARY PROGRESS NOTE SUBJECTIVE: The diarrhea has improved. CT scan of the abdomen and pelvis showed no acute abnormalities. The patient still is unable to talk because of her tracheal stenosis. She has been unable to tolerate [place] valves in the past. PHYSICAL EXAMINATION VITAL SIGNS: The patient is afebrile. The vital signs are stable. HEENT: No facial swelling or erythema. CARDIAC: Regular rate and rhythm with a normal S1 and S2. There are no murmurs or rubs. LUNGS: Auscultation reveals clear breath sounds bilaterally. There are no wheezing. ABDOMEN: Soft and nontender. There is no rebound or guarding. EXTREMITIES: No leg edema or calf tenderness. IMPRESSION 1. Recurrent diarrhea, possibly related to Clostridium difficile colitis. 2. 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 3. Weight loss. 4. History of respiratory failure. PLAN 1. Continue current regimen for C. diff and await C. diff toxin. 2. ENT evaluation; the patient will probably require referral to the medical center to see a laryngeal specialist for possible treatment of her tracheal stenosis. 3. Nutritional evaluation. 4. Nutritional supplementation. 5. Trach care. Job#: [id number] EMILIA KENDRICK
[2018-06-22] MEDS ORDERED: DEXTROSE 50% SYRINGE 50 ML IV PRN (12:00)
[2018-06-22] MEDS ORDERED: MUCOMYST NEB PRN (12:15)
[2018-06-22] MEDS ORDERED: ACETYLCYSTEINE 20% INHAL SOLN 30 ML VIAL INH PRN (12:30)
[2018-06-22] MEDS: FAMOTIDINE 20 MG TAB PO SCH (16:30)
[2018-06-22] MEDS: INSULIN LISPRO 100 UNIT/1 ML 3ML VIAL SQ SCH ×2 (16:30→20:18)
[2018-06-22] MEDS: BALSAM PERU/CASTOR OIL 5 GM OINT...G. TP SCH (16:45)
--- NOTE | 2018-06-22 20:11 | Consultation ---
DATE OF CONSULTATION: June 22, 2018 HOSPITAL CONSULTATION HISTORY OF PRESENT ILLNESS: I was kindly asked to see this 68-year-old woman well known to me from previous outpatient and inpatient evaluation and treatment. She had respiratory failure, which necessitated tracheostomy tube placement. She was successfully weaned from the ventilator and was subsequently decannulated. 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 She progressed with both subglottic and tracheal stenosis. Trachea was dilated to allow for a #8 Shiley XLT distal tracheostomy tube to be placed. The tracheostomy tube was subsequently become dislodged on several occasions and required revision replacement of the tracheostomy tube to maintain the lumen of the trachea. She now presents with abdominal complaints and is stable from her tracheostomy tube. Her history of present illness, past medical history, and past surgical history was reviewed in detail in the chart and is pertinent as above. On examination, the tracheostomy tube was in place and functioning normally. ASSESSMENT: Subglottic and tracheal stenosis, unresponsive to conservative surgical treatment. PLAN: Patient will require subspecialty care at the [facility], which can be performed electively when the patient is stable. Job#: [id number] CQ
[2018-06-22] MEDS: LORAZEPAM 0.5 MG TAB PO SCH (21:00)
[2018-06-22] MEDS: AMITRIPTYLINE HCL 25 MG TAB PO SCH (21:00)
[2018-06-23] VITALS (8 sets, daily range): BP systolic 94–109; BP diastolic 52–69
[2018-06-23] MEDS: IPRATROPIUM BROMIDE 0.02% 2.5 ML NEB NEB SCH ×4 (00:30→19:15)
[2018-06-23 05:41] LABS: BASOPHILS % 0.5 % (0.0-1.0); EOSINOPHILS # (AUTO) 0.3 (0.0-0.4); HEMATOCRIT 37.1 % (34.2-44.1); HEMOGLOBIN 12.1 g/dL (12.0-16.0); LYMPHOCYTES # (AUTO) 1.2 (1.0-3.2); LYMPHOCYTES % 16.5 % (18.0-39.1); MEAN CORPUSCULAR HEMOGLOBIN 27.8 pg (28-32); MEAN CORPUSCULAR HGB CONC 32.6 g/dL (31-35); MEAN CORPUSCULAR VOLUME 85.1 fL (81-99); NEUTROPHILS # (AUTO) 4.9 (2.1-6.9); NEUTROPHILS % 65.1 % (38.7-80.0); PLATELET COUNT 91 x10e3/uL (140-360); RED BLOOD COUNT 4.36 x10e6/uL (3.6-5.1); RED CELL DISTRIBUTION WIDTH 15.4 % (11.7-14.4)
[2018-06-23 05:53] LABS: ANION GAP 13.9 mmol/L (8-16); BLOOD UREA NITROGEN 24 mg/dL (7-26); BUN/CREATININE RATIO 31 (6-25); CALCIUM 9.1 mg/dL (8.4-10.2); CARBON DIOXIDE 22 mmol/L (22-29); CHLORIDE 104 mmol/L (98-107); CREATININE, SERUM 0.78 mg/dL (0.57-1.11); EST GLOMERULAR FILTRATION RATE > 60 ML/MIN (60-); GLUCOSE 114 mg/dL (74-118); MAGNESIUM 1.4 MG/DL (1.3-2.1); POTASSIUM 3.9 mmol/L (3.5-5.1); SODIUM 136 mmol/L (136-145)
[2018-06-23] MEDS: VANCOMYCIN 250MG/5ML ORAL SOLN PO SCH ×4 (06:00→17:52)
[2018-06-23] MEDS: METRONIDAZOLE 500MG/NS 100ML 100 ML IV SCH ×4 (06:00→17:52)
[2018-06-23] MEDS: LEVOTHYROXINE SODIUM 50 MCG TAB PO SCH (06:00)
[2018-06-23] MEDS: ACETAMINOPHEN/CODEINE 300MG - 30MG TAB PO SCH ×4 (06:00→17:52)
[2018-06-23] MEDS: INSULIN LISPRO 100 UNIT/1 ML 3ML VIAL SQ SCH ×4 (07:30→21:00)
[2018-06-23 08:45] LABS: PLATELET ESTIMATE SLIGHTLY DECREASED; POLYCHROMASIA R; RBC MORPHOLOGY COMMENT NORMAL
[2018-06-23 08:46] LABS: ANISOCYTOSIS SLIG; HYPOCHROMASIA SLIGHT; PLATELET MORPHOLOGY COMMENT NORMAL; POIKILOCYTOSIS SLIGHT
[2018-06-23] MEDS: FUROSEMIDE 40 MG TAB PO SCH (09:00)
[2018-06-23] MEDS ORDERED: POTASSIUM CHLORIDE 10MEQ EA PO SCH (09:00)
[2018-06-23] MEDS: METOCLOPRAMIDE HCL 10MG/10ML UDC PEG SCH ×3 (09:44→21:00)
[2018-06-23] MEDS: FAMOTIDINE 20 MG TAB PO SCH ×2 (09:44→17:52)
[2018-06-23] MEDS: ALLOPURINOL 100 MG TAB PO SCH (09:44)
[2018-06-23] MEDS: ASCORBIC ACID 500 MG TAB PO SCH ×2 (09:44→17:52)
[2018-06-23] MEDS: BALSAM PERU/CASTOR OIL 5 GM OINT...G. TP SCH ×2 (09:44→17:52)
[2018-06-23] MEDS: LACTOBACILLUS ACIDOPHILUS CAPSULE PO SCH ×2 (09:44→17:52)
[2018-06-23] MEDS: SITAGLIPTIN 100 MG TAB PO SCH (09:44)
[2018-06-23] MEDS: METOPROLOL TARTRATE 25 MG TAB PO SCH ×2 (09:44→21:00)
[2018-06-23] MEDS: POTASSIUM CHLORIDE 20 MEQ TAB CR PO SCH (09:44)
[2018-06-23] MEDS ORDERED: SODIUM CHLORIDE 0.9% 250ML 250 ML ONE (12:13)
--- NOTE | 2018-06-23 14:46 | Progress Note ---
DATE: June 23, 2018 PULMONARY CRITICAL CARE PROGRESS NOTE Stool studies do show Clostridium difficile. Her diarrhea has improved. PHYSICAL EXAMINATION VITAL SIGNS: The patient is afebrile. The blood pressure is 94/55 and she is saturating 100% on a trach collar. HEENT: No facial swelling or erythema. The nasal mucosa is normal. Trach site looks clean. CARDIAC: Regular rate and rhythm with a normal S1 and S2. There are no murmurs or rubs. LUNGS: Auscultation of lungs reveals rhonchorous breath sounds bilaterally. There is no wheezing. ABDOMEN: Soft and nontender. There is no rebound or guarding. EXTREMITIES: No leg edema or calf tenderness. There is no cyanosis or clubbing. SKIN: Shows no rashes. NEUROLOGICAL: Shows no focal abnormalities. IMPRESSIONS 1. Recurrent Clostridium difficile colitis. 2. Severe infraglottic tracheal stenosis. 3. History of respiratory failure. 4. History of diabetes. 5. History of thyroid disease. PLANS 1. Patient will need vancomycin outpatient. Because this is her second episode of C. difficile colitis, Flagyl alone will not be sufficient. She should have insurance approval for the oral vancomycin prior to discharge. 2. Patient needs evaluation by tracheal subspecialist. We will try and arrange an outpatient appointment with Dr. Brayden Hurd through the [facility]. 3. Nutritional evaluation. 4. Continue enteral feedings. 5. Physical therapy. 6. Case discussed with patient, daughter, Dr. Sanchez, and Pilar Rollins, Nurse Practitioner. Job#: [id number] TA MTDD
[2018-06-23] MEDS ORDERED: CHOLESTYRAMINE 4 GM PACKET PO SCH (18:00)
[2018-06-23] MEDS: LORAZEPAM 0.5 MG TAB PO SCH (21:00)
[2018-06-23] MEDS: AMITRIPTYLINE HCL 25 MG TAB PO SCH (21:00)
[2018-06-23] MEDS: ACETAMINOPHEN 325 MG TAB PO PRN (21:11)
[2018-06-24] VITALS (7 sets, daily range): BP systolic 96–116; BP diastolic 55–69
[2018-06-24] MEDS: LEVOTHYROXINE SODIUM 50 MCG TAB PO SCH (05:18)
[2018-06-24] MEDS: VANCOMYCIN 250MG/5ML ORAL SOLN PO SCH ×5 (05:18→23:56)
[2018-06-24] MEDS: METRONIDAZOLE 500MG/NS 100ML 100 ML IV SCH ×5 (05:18→23:56)
[2018-06-24] MEDS: ACETAMINOPHEN/CODEINE 300MG - 30MG TAB PO SCH ×5 (05:18→23:56)
[2018-06-24 05:55] LABS: BASOPHILS % 0.4 % (0.0-1.0); EOSINOPHILS # (AUTO) 0.2 (0.0-0.4); EOSINOPHILS % 2.1 % (0.0-6.0); HEMATOCRIT 36.4 % (34.2-44.1); HEMOGLOBIN 11.9 g/dL (12.0-16.0); LYMPHOCYTES # (AUTO) 1.2 (1.0-3.2); LYMPHOCYTES % 15.2 % (18.0-39.1); MEAN CORPUSCULAR HEMOGLOBIN 27.4 pg (28-32); MEAN CORPUSCULAR HGB CONC 32.7 g/dL (31-35); MEAN CORPUSCULAR VOLUME 83.9 fL (81-99); MONOCYTES # (AUTO) 0.9 (0.2-0.8); MONOCYTES % 11.7 % (4.4-11.3); NEUTROPHILS # (AUTO) 5.3 (2.1-6.9); NEUTROPHILS % 69.2 % (38.7-80.0); PLATELET COUNT 92 x10e3/uL (140-360); RED BLOOD COUNT 4.34 x10e6/uL (3.6-5.1); RED CELL DISTRIBUTION WIDTH 15.5 % (11.7-14.4)
[2018-06-24 06:19] LABS: ANION GAP 12.2 mmol/L (8-16); BLOOD UREA NITROGEN 21 mg/dL (7-26); BUN/CREATININE RATIO 27 (6-25); CALCIUM 9.3 mg/dL (8.4-10.2); CARBON DIOXIDE 24 mmol/L (22-29); CHLORIDE 103 mmol/L (98-107); CREATININE, SERUM 0.78 mg/dL (0.57-1.11); EST GLOMERULAR FILTRATION RATE > 60 ML/MIN (60-); GLUCOSE 116 mg/dL (74-118); MAGNESIUM 1.4 MG/DL (1.3-2.1); POTASSIUM 4.2 mmol/L (3.5-5.1); SODIUM 135 mmol/L (136-145)
[2018-06-24 06:42] LABS: FREE T4 (FREE THYROXINE) 0.98 ng/dL (0.9-1.8); THYROID STIMULATING HORMONE 5.255 uIU/mL (0.350-4.940)
[2018-06-24] MEDS: IPRATROPIUM BROMIDE 0.02% 2.5 ML NEB NEB SCH ×4 (07:10→19:25)
[2018-06-24] MEDS: INSULIN LISPRO 100 UNIT/1 ML 3ML VIAL SQ SCH ×4 (07:30→21:00)
[2018-06-24] MEDS: POTASSIUM CHLORIDE 20 MEQ TAB CR PO SCH (07:53)
[2018-06-24] MEDS: METOPROLOL TARTRATE 25 MG TAB PO SCH ×2 (07:53→21:00)
[2018-06-24] MEDS: LACTOBACILLUS ACIDOPHILUS CAPSULE PO SCH ×2 (07:53→17:29)
[2018-06-24] MEDS: FAMOTIDINE 20 MG TAB PO SCH ×2 (07:53→17:29)
[2018-06-24] MEDS: ALLOPURINOL 100 MG TAB PO SCH (07:53)
[2018-06-24] MEDS: SITAGLIPTIN 100 MG TAB PO SCH (07:53)
[2018-06-24] MEDS: BALSAM PERU/CASTOR OIL 5 GM OINT...G. TP SCH ×2 (07:53→15:49)
[2018-06-24] MEDS: FUROSEMIDE 40 MG TAB PO SCH (07:53)
[2018-06-24] MEDS: METOCLOPRAMIDE HCL 10MG/10ML UDC PEG SCH ×3 (07:53→21:00)
[2018-06-24] MEDS: ASCORBIC ACID 500 MG TAB PO SCH ×2 (07:53→17:29)
[2018-06-24] MEDS: ACETAMINOPHEN 325 MG TAB PO PRN (08:21)
[2018-06-24] MEDS: MORPHINE SULFATE INJ 4 MG/ML INJ IV PRN (08:21)
[2018-06-24] MEDS: LORAZEPAM 0.5 MG TAB PO SCH (21:00)
[2018-06-24] MEDS: AMITRIPTYLINE HCL 25 MG TAB PO SCH (21:00)
[2018-06-25] VITALS (7 sets, daily range): BP systolic 97–134; BP diastolic 51–83
[2018-06-25] MEDS: IPRATROPIUM BROMIDE 0.02% 2.5 ML NEB NEB SCH ×4 (01:20→20:25)
[2018-06-25] MEDS: METRONIDAZOLE 500MG/NS 100ML 100 ML IV SCH (05:29)
[2018-06-25] MEDS: LEVOTHYROXINE SODIUM 75 MCG TAB PO SCH (05:30)
[2018-06-25] MEDS: ACETAMINOPHEN/CODEINE 300MG - 30MG TAB PO SCH ×3 (05:30→17:50)
[2018-06-25] MEDS: VANCOMYCIN 250MG/5ML ORAL SOLN PO SCH ×3 (05:30→17:50)
[2018-06-25 06:18] LABS: BASOPHILS % 0.2 % (0.0-1.0); EOSINOPHILS # (AUTO) 0.1 (0.0-0.4); EOSINOPHILS % 1.5 % (0.0-6.0); HEMATOCRIT 35.4 % (34.2-44.1); HEMOGLOBIN 11.7 g/dL (12.0-16.0); LYMPHOCYTES # (AUTO) 1.2 (1.0-3.2); LYMPHOCYTES % 12.9 % (18.0-39.1); MEAN CORPUSCULAR HEMOGLOBIN 27.2 pg (28-32); MEAN CORPUSCULAR HGB CONC 33.1 g/dL (31-35); MEAN CORPUSCULAR VOLUME 82.3 fL (81-99); MONOCYTES # (AUTO) 0.9 (0.2-0.8); NEUTROPHILS # (AUTO) 6.9 (2.1-6.9); PLATELET COUNT 95 x10e3/uL (140-360); RED CELL DISTRIBUTION WIDTH 15.6 % (11.7-14.4)
[2018-06-25 07:03] LABS: ANION GAP 11.1 mmol/L (8-16); BLOOD UREA NITROGEN 16 mg/dL (7-26); BUN/CREATININE RATIO 25 (6-25); CALCIUM 9.2 mg/dL (8.4-10.2); CARBON DIOXIDE 24 mmol/L (22-29); CHLORIDE 101 mmol/L (98-107); CREATININE, SERUM 0.64 mg/dL (0.57-1.11); EST GLOMERULAR FILTRATION RATE > 60 ML/MIN (60-); GLUCOSE 103 mg/dL (74-118); MAGNESIUM 1.5 MG/DL (1.3-2.1); POTASSIUM 4.1 mmol/L (3.5-5.1); SODIUM 132 mmol/L (136-145)
[2018-06-25] MEDS: INSULIN LISPRO 100 UNIT/1 ML 3ML VIAL SQ SCH ×4 (07:30→21:00)
[2018-06-25] MEDS: FUROSEMIDE 40 MG TAB PO SCH (09:00)
[2018-06-25] MEDS: METOCLOPRAMIDE HCL 10MG/10ML UDC PEG SCH ×3 (09:00→21:00)
[2018-06-25] MEDS: FAMOTIDINE 20 MG TAB PO SCH ×2 (09:00→16:15)
[2018-06-25] MEDS: SITAGLIPTIN 100 MG TAB PO SCH (09:00)
[2018-06-25] MEDS: ALLOPURINOL 100 MG TAB PO SCH (09:01)
[2018-06-25] MEDS: BALSAM PERU/CASTOR OIL 5 GM OINT...G. TP SCH ×2 (09:01→16:07)
[2018-06-25] MEDS: LACTOBACILLUS ACIDOPHILUS CAPSULE PO SCH ×2 (09:01→17:50)
[2018-06-25] MEDS: POTASSIUM CHLORIDE 20 MEQ TAB CR PO SCH (09:01)
[2018-06-25] MEDS: ASCORBIC ACID 500 MG TAB PO SCH ×2 (09:01→17:50)
[2018-06-25] MEDS: METOPROLOL TARTRATE 25 MG TAB PO SCH ×2 (09:01→21:00)
[2018-06-25] MEDS: LOPERAMIDE HCL 2 MG CAP PEG PRN ×2 (09:42→16:15)
[2018-06-25] MEDS: MORPHINE SULFATE INJ 4 MG/ML INJ IV PRN (09:42)
[2018-06-25] MEDS: AMITRIPTYLINE HCL 25 MG TAB PO SCH (21:00)
[2018-06-25] MEDS: LORAZEPAM 0.5 MG TAB PO SCH (21:00)
[2018-06-26] VITALS (9 sets, daily range): BP systolic 96–122; BP diastolic 58–78
[2018-06-26] MEDS: IPRATROPIUM BROMIDE 0.02% 2.5 ML NEB NEB SCH ×4 (00:25→19:15)
[2018-06-26] MEDS: ACETAMINOPHEN 325 MG TAB PO PRN (01:30)
[2018-06-26] MEDS: LEVOTHYROXINE SODIUM 75 MCG TAB PO SCH (06:06)
[2018-06-26] MEDS: ACETAMINOPHEN/CODEINE 300MG - 30MG TAB PO SCH ×4 (06:06→15:57)
[2018-06-26] MEDS: VANCOMYCIN 250MG/5ML ORAL SOLN PO SCH ×4 (06:06→15:57)
[2018-06-26] MEDS ORDERED: DICYCLOMINE HCL 10 MG CAP PO PRN (08:00)
[2018-06-26] MEDS: FAMOTIDINE 20 MG TAB PO SCH ×2 (08:58→15:57)
[2018-06-26] MEDS: BALSAM PERU/CASTOR OIL 5 GM OINT...G. TP SCH ×2 (08:59→15:57)
[2018-06-26] MEDS: INSULIN LISPRO 100 UNIT/1 ML 3ML VIAL SQ SCH ×4 (08:59→21:00)
[2018-06-26] MEDS: ALLOPURINOL 100 MG TAB PO SCH (08:59)
[2018-06-26] MEDS: LACTOBACILLUS ACIDOPHILUS CAPSULE PO SCH ×2 (08:59→15:57)
[2018-06-26] MEDS: SITAGLIPTIN 100 MG TAB PO SCH (08:59)
[2018-06-26] MEDS: LOPERAMIDE HCL 2 MG CAP PEG SCH ×3 (08:59→22:00)
[2018-06-26] MEDS: POTASSIUM CHLORIDE 20MEQ/15ML UDC PEG SCH (08:59)
[2018-06-26] MEDS: FUROSEMIDE 40 MG TAB PO SCH (08:59)
[2018-06-26] MEDS: ASCORBIC ACID 500 MG TAB PO SCH ×2 (08:59→15:57)
[2018-06-26] MEDS: METOPROLOL TARTRATE 25 MG TAB PO SCH ×2 (08:59→22:01)
[2018-06-26] MEDS: METOCLOPRAMIDE HCL 10MG/10ML UDC PEG SCH ×3 (08:59→22:00)
[2018-06-26] MEDS ORDERED: POTASSIUM CHLORIDE 20MEQ/15ML UDC PEG SCH (09:00)
[2018-06-26] MEDS: MORPHINE SULFATE INJ 4 MG/ML INJ IV PRN (09:00)
[2018-06-26] MEDS ORDERED: SODIUM CHLORIDE 0.9% 500ML 500 ML ONE (15:46)
[2018-06-26] MEDS: AMITRIPTYLINE HCL 25 MG TAB PO SCH (22:00)
[2018-06-26] MEDS: LORAZEPAM 0.5 MG TAB PO SCH (22:00)
[2018-06-27] VITALS (8 sets, daily range): BP systolic 97–119; BP diastolic 53–66
[2018-06-27] MEDS: IPRATROPIUM BROMIDE 0.02% 2.5 ML NEB NEB SCH ×4 (00:50→19:45)
[2018-06-27 05:44] LABS: BASOPHILS % 0.3 % (0.0-1.0); EOSINOPHILS # (AUTO) 0.1 (0.0-0.4); EOSINOPHILS % 1.3 % (0.0-6.0); HEMATOCRIT 33.1 % (34.2-44.1); LYMPHOCYTES # (AUTO) 1.6 (1.0-3.2); LYMPHOCYTES % 15.4 % (18.0-39.1); MEAN CORPUSCULAR HEMOGLOBIN 27.4 pg (28-32); MEAN CORPUSCULAR HGB CONC 33.2 g/dL (31-35); MEAN CORPUSCULAR VOLUME 82.5 fL (81-99); MONOCYTES # (AUTO) 1.1 (0.2-0.8); MONOCYTES % 10.8 % (4.4-11.3); NEUTROPHILS # (AUTO) 7.3 (2.1-6.9); PLATELET COUNT 90 x10e3/uL (140-360); RED BLOOD COUNT 4.01 x10e6/uL (3.6-5.1); RED CELL DISTRIBUTION WIDTH 15.1 % (11.7-14.4)
[2018-06-27] MEDS: VANCOMYCIN 250MG/5ML ORAL SOLN PO SCH ×4 (05:46→17:02)
[2018-06-27] MEDS: ACETAMINOPHEN/CODEINE 300MG - 30MG TAB PO SCH ×4 (05:46→17:02)
[2018-06-27] MEDS: LEVOTHYROXINE SODIUM 75 MCG TAB PO SCH (05:46)
[2018-06-27 07:01] LABS: BLOOD UREA NITROGEN 16 mg/dL (7-26); BUN/CREATININE RATIO 24 (6-25); CHLORIDE 97 mmol/L (98-107); CREATININE, SERUM 0.67 mg/dL (0.57-1.11); EST GLOMERULAR FILTRATION RATE > 60 ML/MIN (60-); GLUCOSE 117 mg/dL (74-118); MAGNESIUM 1.2 MG/DL (1.3-2.1); POTASSIUM 4.2 mmol/L (3.5-5.1); SODIUM 130 mmol/L (136-145)
[2018-06-27 08:34] LABS: CALCIUM 8.4 mg/dL (8.4-10.2); CARBON DIOXIDE 17 mmol/L (22-29)
[2018-06-27 08:36] LABS: ANION GAP 20.2 mmol/L (8-16)
[2018-06-27] MEDS: FAMOTIDINE 20 MG TAB PO SCH ×2 (08:54→17:01)
[2018-06-27] MEDS: ALLOPURINOL 100 MG TAB PO SCH (08:55)
[2018-06-27] MEDS: POTASSIUM CHLORIDE 20MEQ/15ML UDC PEG SCH (08:55)
[2018-06-27] MEDS: LACTOBACILLUS ACIDOPHILUS CAPSULE PO SCH ×2 (08:55→17:02)
[2018-06-27] MEDS: FUROSEMIDE 40 MG TAB PO SCH (08:55)
[2018-06-27] MEDS: METOCLOPRAMIDE HCL 10MG/10ML UDC PEG SCH ×3 (08:55→21:00)
[2018-06-27] MEDS: INSULIN LISPRO 100 UNIT/1 ML 3ML VIAL SQ SCH ×4 (08:55→21:00)
[2018-06-27] MEDS: LOPERAMIDE HCL 2 MG CAP PEG SCH ×3 (08:55→21:00)
[2018-06-27] MEDS: METOPROLOL TARTRATE 25 MG TAB PO SCH ×2 (08:55→21:00)
[2018-06-27] MEDS: ASCORBIC ACID 500 MG TAB PO SCH ×2 (08:55→17:02)
[2018-06-27] MEDS: BALSAM PERU/CASTOR OIL 5 GM OINT...G. TP SCH ×2 (08:55→17:02)
[2018-06-27] MEDS: SITAGLIPTIN 100 MG TAB PO SCH (08:55)
[2018-06-27] MEDS ORDERED: SODIUM CHLORIDE 0.45% 1,000 ML IV ONE (12:30)
[2018-06-27] MEDS ORDERED: SODIUM CHLORIDE 0.9% 1000ML 1,000 ML IV ONE (12:30)
[2018-06-27] MEDS ORDERED: MAGNESIUM SULFATE 2GM/50ML 50 ML IV ONE (12:30)
[2018-06-27 12:53] LABS: ANISOCYTOSIS SLIGHT; HYPOCHROMASIA SLIGHT; RBC MORPHOLOGY COMMENT NORMAL
[2018-06-27 12:54] LABS: MICROCYTOSIS SLIGHT; PLATELET ESTIMATE SLIGHTLY DECREASED; PLATELET MORPHOLOGY COMMENT FEW LARGE
--- NOTE | 2018-06-27 13:27 | Progress Note ---
DATE: PULMONARY/CRITICAL CARE PROGRESS NOTE SUBJECTIVE: Patient still has diarrhea today. Her temperature was 99.7. She notes some right wrist pain. OBJECTIVE VITAL SIGNS: The blood pressure is 119/61 and the saturation is 100% on 4 liters by trach collar. Her respiratory rate is normal. HEENT: Examination shows no facial swelling or erythema. The nasal mucosa is normal. The trach site is clear. There is no drainage. CARDIAC: Exam reveals a regular rate and rhythm with a normal S1 and S2. LUNGS: Auscultation reveals clear breath sounds bilaterally. There is no wheezing. ABDOMEN: Soft and nontender. There is no rebound or guarding. EXTREMITIES: Examination shows no leg edema or calf tenderness. There is no cyanosis or clubbing. LABORATORY DATA: White blood cell count is 10.2 with a hemoglobin of 11 and a platelet count of 90. The sodium is 130 and the carbon dioxide is 17 with an increased anion gap. Magnesium is 1.2. IMPRESSION 1. Clostridium difficile colitis with sepsis. 2. Hypomagnesemia. 3. Metabolic acidosis. 4. Hyponatremia. 5. Tracheal stenosis. PLAN 1. Hold diuretics and begin intravenous fluids. 2. Chest x-ray. 3. Replete magnesium. 4. Monitor carbon dioxide and electrolytes. 5. Consider ID consultation because of persistent fevers. 6. Avoid heparin because of thrombocytopenia. Job#: [id number] EV
[2018-06-27 13:47] LABS: BILIRUBIN,URINE NEGATIVE (NEGATIVE); CLARITY,URINE SL CLOUDY (CLEAR); COLOR,URINE YELLOW (YELLOW); KETONES,URINE NEGATIVE (NEGATIVE); LEUKOCYTE ESTERASE ,URINE TRACE (NEGATIVE); NITRITE,URINE NEGATIVE (NEGATIVE); PROTEIN,URINE DIPSTICK NEGATIVE (NEGATIVE); URINE UROBILINOGEN 0.2 mg/dL (0.2 - 1)
[2018-06-27 13:55] LABS: BACTERIA,URINE MANY /HPF; WBC,URINE (MAN) 0-5 /HPF (0-5)
--- NOTE | 2018-06-27 14:08 | Diagnostic Imaging Report ---
EXAMINATION: CHEST SINGLE (PORTABLE) INDICATION: Fever COMPARISON: Chest radiograph 06/05/18. FINDINGS: TUBES and LINES: Tracheostomy is present. LUNGS: Moderate lung volumes. There is no evidence of pneumonia or pulmonary edema. Opacity overlying the bilateral upper lungs is likely overlying the patient. PLEURA: No pleural effusion or pneumothorax. HEART AND MEDIASTINUM: The cardiomediastinal silhouette is unremarkable. BONES AND SOFT TISSUES: No acute osseous lesion. Soft tissues are unremarkable. UPPER ABDOMEN: No free air under the diaphragm. IMPRESSION: No acute radiographic abnormality. No evidence of pneumonia. . Signed by: Dr. Shamir Adams MD on 06/27/2018 2:04 PM
[2018-06-27] MEDS: CHOLESTYRAMINE 4 GM PACKET PO SCH (17:02)
[2018-06-27] MEDS: NYSTATIN 15 GM POWDER UD BTL TOP SCH (21:00)
[2018-06-27] MEDS: AMITRIPTYLINE HCL 25 MG TAB PO SCH (21:00)
[2018-06-27] MEDS: LORAZEPAM 0.5 MG TAB PO SCH (21:00)
[2018-06-28] VITALS: BP 100/57
[2018-06-28] MEDS: IPRATROPIUM BROMIDE 0.02% 2.5 ML NEB NEB SCH ×4 (02:50→19:15)
[2018-06-28 04:00] VITALS: BP 96/55
[2018-06-28 05:03] VITALS: BP 100/57
[2018-06-28] MEDS: VANCOMYCIN 250MG/5ML ORAL SOLN PO SCH ×3 (06:13→11:21)
[2018-06-28] MEDS: LEVOTHYROXINE SODIUM 75 MCG TAB PO SCH (06:13)
[2018-06-28] MEDS: ACETAMINOPHEN/CODEINE 300MG - 30MG TAB PO SCH ×3 (06:13→11:21)
[2018-06-28 06:19] LABS: BASOPHILS % 0.3 % (0.0-1.0); EOSINOPHILS # (AUTO) 0.1 (0.0-0.4); EOSINOPHILS % 1.3 % (0.0-6.0); HEMATOCRIT 31.5 % (34.2-44.1); HEMOGLOBIN 10.3 g/dL (12.0-16.0); LYMPHOCYTES # (AUTO) 1.4 (1.0-3.2); LYMPHOCYTES % 22.5 % (18.0-39.1); MEAN CORPUSCULAR HEMOGLOBIN 27.1 pg (28-32); MEAN CORPUSCULAR HGB CONC 32.7 g/dL (31-35); MEAN CORPUSCULAR VOLUME 82.9 fL (81-99); MONOCYTES # (AUTO) 0.7 (0.2-0.8); MONOCYTES % 10.9 % (4.4-11.3); NEUTROPHILS % 63.1 % (38.7-80.0); PLATELET COUNT 83 x10e3/uL (140-360); RED CELL DISTRIBUTION WIDTH 15.5 % (11.7-14.4)
[2018-06-28 06:48] LABS: ALANINE AMINOTRANSFERASE 6 IU/L (0-55); ALBUMIN 2.2 g/dL (3.5-5.0); ALBUMIN/GLOBULIN RATIO 0.7 (0.8-2.0); ALKALINE PHOSPHATASE 84 IU/L (40-150); ANION GAP 13.1 mmol/L (8-16); BLOOD UREA NITROGEN 15 mg/dL (7-26); BUN/CREATININE RATIO 25 (6-25); CALCIUM 8.8 mg/dL (8.4-10.2); CARBON DIOXIDE 27 mmol/L (22-29); CHLORIDE 100 mmol/L (98-107); CREATININE, SERUM 0.61 mg/dL (0.57-1.11); EST GLOMERULAR FILTRATION RATE > 60 ML/MIN (60-); GLUCOSE 108 mg/dL (74-118); POTASSIUM 4.1 mmol/L (3.5-5.1); SODIUM 136 mmol/L (136-145)
[2018-06-28] MEDS: INSULIN LISPRO 100 UNIT/1 ML 3ML VIAL SQ SCH ×3 (07:30→16:10)
[2018-06-28 07:45] LABS: EOSINOPHILS % (MANUAL) 1 % (0-7); LYMPHOCYTES % (MANUAL) 21 % (19-48); MONOCYTES % (MANUAL) 4 % (3.4-9.0); NEUTROPHILS % (MANUAL) 74 % (40-74); PLATELET ESTIMATE MODERATELY DECREASED
[2018-06-28 07:50] VITALS: BP 106/56
[2018-06-28] MEDS: FAMOTIDINE 20 MG TAB PO SCH ×2 (08:35→15:54)
[2018-06-28] MEDS: LACTOBACILLUS ACIDOPHILUS CAPSULE PO SCH ×2 (08:36→17:59)
[2018-06-28] MEDS: POTASSIUM CHLORIDE 20MEQ/15ML UDC PEG SCH (08:36)
[2018-06-28] MEDS: LOPERAMIDE HCL 2 MG CAP PEG SCH ×2 (08:36→15:54)
[2018-06-28] MEDS: ASCORBIC ACID 500 MG TAB PO SCH ×2 (08:36→17:59)
[2018-06-28] MEDS: SITAGLIPTIN 100 MG TAB PO SCH (08:36)
[2018-06-28] MEDS: METOCLOPRAMIDE HCL 10MG/10ML UDC PEG SCH ×2 (08:36→15:54)
[2018-06-28] MEDS: ALLOPURINOL 100 MG TAB PO SCH (08:36)
[2018-06-28] MEDS: METOPROLOL TARTRATE 25 MG TAB PO SCH (08:37)
[2018-06-28] MEDS ORDERED: LASIX40 MG PO (09:35)
[2018-06-28] MEDS ORDERED: SIMETHICONE80 MG PO (09:35)
[2018-06-28] MEDS ORDERED: ACIDOPHILUS1 EAC1 PEG (09:35)
[2018-06-28] MEDS ORDERED: NOVOLOG100 UNITS1 SQ (09:35)
[2018-06-28] MEDS ORDERED: LORAZEPAM0.5 MG PEG (09:35)
[2018-06-28] MEDS ORDERED: CHOLESTYRAMINE L4 GM PO (09:35)
[2018-06-28] MEDS ORDERED: ALLOPURINOL300 MG PO (09:35)
[2018-06-28] MEDS ORDERED: CATAPRES0.1 MG PO (09:35)
[2018-06-28] MEDS ORDERED: mucomyst NEB (09:35)
[2018-06-28] MEDS ORDERED: SYNTHROID75 MCG PO (09:35)
[2018-06-28] MEDS ORDERED: K DUR10 MEQ PO (09:35)
[2018-06-28] MEDS ORDERED: REGLAN5 MG PEG (09:35)
[2018-06-28] MEDS ORDERED: JANUVIA100 MG PO (09:35)
[2018-06-28] MEDS ORDERED: TYLENOL WITH C1 EACH PO (09:35)
[2018-06-28] MEDS ORDERED: AMITRIPTYLINE H25 MG PO (09:35)
[2018-06-28] MEDS ORDERED: IMODIUM2 MG PEG (09:37)
[2018-06-28] MEDS ORDERED: VANCOCIN HCL250 MG PO (09:37)
[2018-06-28] MEDS: NYSTATIN 15 GM POWDER UD BTL TOP SCH (10:51)
[2018-06-28] MEDS: BALSAM PERU/CASTOR OIL 5 GM OINT...G. TP SCH ×2 (10:51→16:15)
[2018-06-28] MEDS: CHOLESTYRAMINE 4 GM PACKET PO SCH ×2 (11:07→17:59)
[2018-06-28 11:27] VITALS: BP 101/60
[2018-06-28 15:40] VITALS: BP 117/59
--- NOTE | 2018-06-28 15:40 | Discharge Summary ---
ADMITTING DIAGNOSES 1. Abdominal pain with diarrhea. 2. Type-2 diabetes. 3. Hypertension. 4. Hypothyroidism. 5. Respiratory failure history secondary to tracheal stenosis. 6. Aspiration pneumonia history. 7. Dysphagia. 8. Neuropathy. DISCHARGE DIAGNOSES 1. Abdominal pain with diarrhea. 2. Type-2 diabetes. 3. Hypertension. 4. Hypothyroidism. 5. Respiratory failure history secondary to tracheal stenosis. 6. Aspiration pneumonia history. 7. Dysphagia. 8. Neuropathy. 9. Clostridium difficile. HISTORY: The patient has a history of type-2 diabetes, hypertension, neuropathy, hypothyroidism, gout, obesity, respiratory failure secondary to tracheal stenosis, asthma, chronic bronchitis, C. diff colitis, CKD, GERD, PVD, aspiration pneumonia. Surgical history of PEG placement, trach placement, tonsillectomy, hysterectomy, and left hip replacement. Noncontributory family history. Noncontributory social history. HOSPITAL COURSE: This 68-year-old female with history of C. diff in December 2017 complains of bilateral lower pelvic pain and diarrhea that began 2 weeks ago. The pain is constant and aching. The patient admits to having 4 to 5 watery bowel movements per day. She denies , vomiting and fever. On admission, the patient was started on vancomycin p.o. with Flagyl. CT of the abdomen showed no acute findings. Extensive colonic diverticulosis without inflammatory change. Pulmonary saw the patient in the ER and was consulted. Then consulted ENT due to the numerous trach issues at each admission. Chest x-ray was negative. Urine culture was negative. C. diff was positive on the and negative on the th. Per ENT and pulmonology, they recommend she follow up with ENT subspecialist in the [facility], Dr. Hurd. Case management will arrange for an appointment with Dr. Hurd and transportation to the appointment. The patient will discharge home per her request with vancomycin p.o., loperamide p.r.n., increased dose of levothyroxine as well as normal home medicines. The patient and understand the discharge instructions and agree to the plan. She will resume home health and speech therapy for NEMS and swallow evaluation. Vital signs are stable. Patient is afebrile. Dictated by: Pilar Rollins NP ILAN SALCEDO MD Job#: [id number] MH
== END 2018-06-28 20:15 | disposition home or self-care (01) | DRG 372 ==
LOC: ER 12:44 → ERHOLD 15:33 → MED/SURG3 18:01
PROVIDERS: ADMIT Internal Medicine; ATTEND Internal Medicine
DX: A04.71 Enterocolitis due to Clostridium difficile, recurrent (principal); E87.2 Acidosis; E87.1 Hypo-osmolality and hyponatremia; J96.10 Chronic respiratory failure, unspecified whether with hypoxia or hypercapnia; J38.6 Stenosis of larynx; J39.8 Other specified diseases of upper respiratory tract; Z88.0 Allergy status to penicillin; Z88.8 Allergy status to other drugs, medicaments and biological substances; Z91.048 Other nonmedicinal substance allergy status; E11.42 Type 2 diabetes mellitus with diabetic polyneuropathy; E03.9 Hypothyroidism, unspecified; M10.9 Gout, unspecified; E66.9 Obesity, unspecified; E11.22 Type 2 diabetes mellitus with diabetic chronic kidney disease; I12.9 Hypertensive chronic kidney disease with stage 1 through stage 4 chronic kidney disease, or unspecified chronic kidney disease; N18.9 Chronic kidney disease, unspecified; Z93.1 Gastrostomy status; R63.4 Abnormal weight loss; Z93.0 Tracheostomy status; E83.42 Hypomagnesemia; Z68.33 Body mass index [BMI] 33.0-33.9, adult; Z79.4 Long term (current) use of insulin; R13.10 Dysphagia, unspecified; K21.9 Gastro-esophageal reflux disease without esophagitis; Z96.642 Presence of left artificial hip joint
CPT/HCPCS: 36415; 71045; 74177; 80048; 80053; 81001; 82150; 82948; 83605; 83690; 83735; 83993; 84134; 84439; 84443; 84550; 85025; 87045; 87086; 87186; 87493; 94640; 96361; 97139; 99284; J2270; J2405; J3475; J7030; J7040; J7050; Q9967

== ENCOUNTER 2018-07-30 19:27 | Inpatient (IN) | payer MEDICARE, OTHER ==
[~2018-07-30] VITALS: Ht 167.6 cm; Wt 113.9 kg
[~2018-07-30 19:27] MED LIST changes: +ACIDOPHILUS1 EAC1 PEG; +IMODIUM2 MG PEG; +SYNTHROID75 MCG PO
[2018-07-30] MEDS ORDERED: SODIUM CHLORIDE 0.9% 1000ML 1,000 ML IV ONE (19:45)
[2018-07-30] MEDS ORDERED: ACETAMINOPHEN 1000 MG/100 ML IV ONE (20:15)
--- NOTE | 2018-07-30 20:32 | Diagnostic Imaging Report ---
EXAMINATION: CHEST SINGLE (PORTABLE) INDICATION: Fever COMPARISON: 06/27/2018 and 06/05/2018 FINDINGS: AP view TUBES and LINES: Tracheostomy tube unchanged. LUNGS: Lungs are well inflated. Stable chronic appearing lung changes. There is no evidence of pneumonia or pulmonary edema. PLEURA: No pleural effusion or pneumothorax. HEART AND MEDIASTINUM: The cardiomediastinal silhouette is unremarkable. BONES AND SOFT TISSUES: No acute osseous lesion. Glenohumeral degenerative changes. Soft tissues are unremarkable. UPPER ABDOMEN: No free air under the diaphragm. IMPRESSION: No acute thoracic abnormality. Signed by: DR. Loki Hernández MD on 07/30/2018 8:29 PM
[2018-07-30 22:03] LABS: BASOPHILS # (AUTO) 0.1 (0.0-0.1); BASOPHILS % 0.3 % (0.0-1.0); EOSINOPHILS # (AUTO) 0.3 (0.0-0.4); EOSINOPHILS % 1.9 % (0.0-6.0); HEMATOCRIT 41.3 % (34.2-44.1); HEMOGLOBIN 13.3 g/dL (12.0-16.0); LYMPHOCYTES # (AUTO) 2.2 (1.0-3.2); LYMPHOCYTES % 14.3 % (18.0-39.1); MEAN CORPUSCULAR HEMOGLOBIN 27.9 pg (28-32); MEAN CORPUSCULAR HGB CONC 32.2 g/dL (31-35); MEAN CORPUSCULAR VOLUME 86.8 fL (81-99); MONOCYTES # (AUTO) 1.2 (0.2-0.8); MONOCYTES % 7.9 % (4.4-11.3); NEUTROPHILS # (AUTO) 11.5 (2.1-6.9); NEUTROPHILS % 74.8 % (38.7-80.0); PLATELET COUNT 171 x10e3/uL (140-360); RED BLOOD COUNT 4.76 x10e6/uL (3.6-5.1); RED CELL DISTRIBUTION WIDTH 16.2 % (11.7-14.4)
[2018-07-30 22:20] LABS: CLARITY,URINE TURBID (CLEAR); COLOR,URINE YELLOW (YELLOW); LEUKOCYTE ESTERASE ,URINE 2+ (NEGATIVE); NITRITE,URINE POSITIVE (NEGATIVE); PROTEIN,URINE DIPSTICK 1+ (NEGATIVE)
[2018-07-30 22:21] LABS: ALBUMIN 2.9 g/dL (3.5-5.0); ALBUMIN/GLOBULIN RATIO 0.8 (0.8-2.0); ALKALINE PHOSPHATASE 87 IU/L (40-150); ANION GAP 19.9 mmol/L (8-16); BILIRUBIN,URINE NEGATIVE (NEGATIVE); BLOOD UREA NITROGEN 39 mg/dL (7-26); BUN/CREATININE RATIO 48 (6-25); CALCIUM 9.9 mg/dL (8.4-10.2); CARBON DIOXIDE 15 mmol/L (22-29); CHLORIDE 106 mmol/L (98-107); CREATINE KINASE 14 IU/L (29-168); CREATININE, SERUM 0.81 mg/dL (0.57-1.11); EST GLOMERULAR FILTRATION RATE > 60 ML/MIN (60-); GLUCOSE 91 mg/dL (74-118); KETONES,URINE TRACE (NEGATIVE); POTASSIUM 3.9 mmol/L (3.5-5.1); SODIUM 137 mmol/L (136-145); URINE UROBILINOGEN 0.2 mg/dL (0.2 - 1)
[2018-07-30 22:27] LABS: ALANINE AMINOTRANSFERASE < 6 IU/L (0-55); BACTERIA,URINE MANY /HPF; EPITHELIAL CELLS,URINE MODERATE /LPF; WBC,URINE (MAN) >50 /HPF (0-5)
[2018-07-31] MEDS ORDERED: SODIUM CHLORIDE 0.9% 1000ML 1,000 ML IV SCH (00:09)
[2018-07-31] MEDS ORDERED: DEXTROSE 50% SYRINGE 50 ML IV PRN (00:15)
[2018-07-31] MEDS ORDERED: ACETAMINOPHEN 1000 MG/100 ML IV PRN (00:15)
[2018-07-31] MEDS ORDERED: ONDANSETRON HCL INJ 2 MG/ML VIAL IV PRN (00:15)
[2018-07-31] MEDS ORDERED: SODIUM CHLORIDE 0.9% 100 ML ONE (00:25)
[2018-07-31] MEDS ORDERED: MEROPENEM 1 GM VIAL ONE (00:25)
[2018-07-31] MEDS: INSULIN REGULAR, HUMAN 100 UNIT/1 ML 3ML VIAL SQ SCH ×4 (07:46→20:54)
[2018-07-31] MEDS: ALBUTEROL/IPRATROPIUM 3 ML NEB NEB PRN (08:45)
[2018-07-31] MEDS ORDERED: MUCOMYST NEB PRN (09:00)
[2018-07-31] MEDS: FAMOTIDINE 20 MG/2 ML VIAL IV SCH ×2 (10:03→22:02)
[2018-07-31] MEDS: MEROPENEM 1GM 100 ML IV SCH ×4 (10:04→22:56)
--- NOTE | 2018-07-31 14:28 | Progress Note ---
DATE: NO DICTATION, length 0 minutes 3 seconds. Job#: [id number] EV
[2018-07-31] MEDS ORDERED: METRONIDAZOLE 500MG/NS 100ML 100 ML IV ONE (14:45)
[2018-07-31] MEDS: DEXTROSE 5%/0.45% SOD CHL 1,000 ML IV SCH (15:54)
[2018-07-31] MEDS: METRONIDAZOLE 500MG/NS 100ML 100 ML IV SCH ×2 (15:54→22:02)
[2018-07-31] MEDS: VANCOMYCIN 250MG/5ML ORAL SOLN GT SCH ×2 (15:54→22:27)
--- NOTE | 2018-07-31 16:05 | Consultation ---
DATE OF CONSULTATION: July 31, 2018 PULMONARY MEDICINE CONSULT This is coverage for Dr. Juan C Kerns. REASON FOR CONSULTATION: Chronic respiratory failure. HISTORY: Ms. Lopez is a pleasant 68-year-old female with chronic respiratory failure. Patient was at her residence in her usual state of health. She was turned over. Her feeding tube became dislodged during this procedure. She also had fever of 100.5 degrees Fahrenheit. She was sent to the emergency room for further evaluation. Patient is having some increased abdominal pain recently. She is well known to Dr. Kerns and to me from when she had a prolonged complicated hospitalization over a year ago and she was given a tracheostomy. She was presumed to have viral pneumonitis and then staphylococcal pneumonia at that time. 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 She currently has a Shiley 8.0 XLT distal tracheostomy in place. PAST MEDICAL HISTORY: Tracheal stenosis, acute/chronic respiratory failure, history of C. difficile colitis, recurrent aspiration, hypothyroidism, diabetes, tracheostomy, PEG tube placement, hysterectomy, tonsillectomy. MEDICATIONS: Medication list was reviewed per the electronic record. ALLERGIES: SHE IS ALLERGIC TO PENICILLIN AND HEPARIN. SOCIAL HISTORY: No smoking, no drinking, no drugs. She is now living at home. She is able to transfer to a wheelchair on her own, she says. She is not walking. FAMILY HISTORY: Noncontributory. REVIEW OF SYSTEMS: Cannot get reliably as she is not speaking right now. PHYSICAL EXAMINATION VITAL SIGNS: Currently afebrile. Vital signs noted per electronic record. GENERAL: No acute distress, weak in bed. HEENT: Normocephalic, atraumatic. NECK: Supple. Tracheostomy tube in place midline. CARDIOVASCULAR: S1 and S2. No murmurs, rubs or gallops. ABDOMINAL: Soft, nontender. RESPIRATORY: Bilateral air entry, mild rhonchi and rales bilaterally. EXTREMITIES: No clubbing, no cyanosis. There is trace edema. INTEGUMENT: No rash. There are some venous stasis changes to the legs. LABS: Potassium 3.9, BUN 39, creatinine 0.8. White count 15. IMPRESSION AND PLAN 1. Chronic respiratory failure. 2. Subglottic stenosis with chronic tracheostomy tube. 3. Failure to thrive, dysphagia status post feeding tube placement. 4. Weakness/debility, weakness an polyneuropathy. At this time, continue current care. Patient will have maintenance of the same tracheostomy in place. They will continue local tracheostomy care. GI consult for the abdominal pain and the feeding tube replacement. Will review her old records regarding her ability to eat orally as well. Dr. Kerns to return tomorrow. Thank you very much, Dr. Stein, for allowing me and Dr. Kerns the chance to participate in the care of Ms. Lopez. Call for questions. Job#: [id number] EV
[2018-07-31] MEDS ORDERED: VANCOMYCIN 250MG/5ML ORAL SOLN PO SCH (18:00)
[2018-07-31 19:39] VITALS: BP 108/55
[2018-07-31 20:29] VITALS: BP 108/55
[2018-08-01 00:50] VITALS: BP 104/58
--- NOTE | 2018-08-01 01:01 | Consultation ---
DATE OF CONSULTATION: July 31, 2018 REASON FOR CONSULTATION: Leukocytosis. HISTORY OF PRESENT ILLNESS: Ms. Lopez is well known to me from previous hospitalization. She is an elderly lady with history of obesity, history of C. diff colitis, feeding tube. The patient is coming to the hospital because she dislodged her feeding tube. The patient complains of some abdominal discomfort. The patient also had a history of C. diff colitis before. The patient had prolonged hospitalizations before with multiple admissions, but this time she is coming as mentioned above with feeding tube being dislodged. Then patient, when I saw in the emergency room, had no other complaints. PAST MEDICAL HISTORY: Obesity, tracheostomy, multiple admissions for sepsis and infection, C. diff colitis which was very difficult to treat before, bacteriuria. PAST SURGICAL HISTORY: Feeding tube. ALLERGIES: NKDA. SOCIAL HISTORY: There is no smoking, drug abuse, alcohol abuse. FAMILY HISTORY: Noncontributory. REVIEW OF SYSTEMS: HEENT: Negative. PULMONARY: Negative. CARDIAC: Negative. : Negative. GI: There is abdominal discomfort and nausea. PHYSICAL EXAMINATION: She is currently alert. Does not seem to be in acute distress. VITALS: Stable, currently afebrile. HEENT: She is not icteric. NECK: Supple. CHEST: Clear. HEART: No murmur. ABDOMEN: Soft, distended. IMPRESSION 1. Dislodged feeding tube. Gastroenterology has been consulted. 2. Leukocytosis, concern about Clostridium difficile colitis. Will treat with oral vancomycin 250 mg p.o. q.i.d. 3. History of bacteruria, asymptomatic. Will observe. PLAN: Recheck CBC. Recheck chem panel. Recheck blood cultures. Will follow up with you. Thank you for asking me to see this patient. Job#: [id number] EMILIA
[2018-08-01 01:33] VITALS: BP 104/58
[2018-08-01] MEDS: VANCOMYCIN 250MG/5ML ORAL SOLN GT SCH ×4 (02:13→23:59)
[2018-08-01] MEDS: METRONIDAZOLE 500MG/NS 100ML 100 ML IV SCH ×4 (03:39→21:32)
[2018-08-01] MEDS: DEXTROSE 5%/0.45% SOD CHL 1,000 ML IV SCH ×2 (03:40→18:03)
[2018-08-01 04:56] LABS: BASOPHILS # (AUTO) 0.1 (0.0-0.1); BASOPHILS % 0.3 % (0.0-1.0); EOSINOPHILS # (AUTO) 0.1 (0.0-0.4); EOSINOPHILS % 0.6 % (0.0-6.0); HEMATOCRIT 39.2 % (34.2-44.1); HEMOGLOBIN 12.6 g/dL (12.0-16.0); LYMPHOCYTES # (AUTO) 1.5 (1.0-3.2); LYMPHOCYTES % 6.5 % (18.0-39.1); MEAN CORPUSCULAR HEMOGLOBIN 28.3 pg (28-32); MEAN CORPUSCULAR HGB CONC 32.1 g/dL (31-35); MEAN CORPUSCULAR VOLUME 88.1 fL (81-99); MONOCYTES # (AUTO) 1.6 (0.2-0.8); MONOCYTES % 6.7 % (4.4-11.3); NEUTROPHILS # (AUTO) 19.7 (2.1-6.9); PLATELET COUNT 132 x10e3/uL (140-360); RED BLOOD COUNT 4.45 x10e6/uL (3.6-5.1); RED CELL DISTRIBUTION WIDTH 16.6 % (11.7-14.4)
[2018-08-01] MEDS: MEROPENEM 1GM 100 ML IV SCH (05:09)
[2018-08-01 05:22] LABS: ALANINE AMINOTRANSFERASE < 6 IU/L (0-55); ALBUMIN 2.4 g/dL (3.5-5.0); ALBUMIN/GLOBULIN RATIO 0.8 (0.8-2.0); ALKALINE PHOSPHATASE 98 IU/L (40-150); ANION GAP 16.8 mmol/L (8-16); BLOOD UREA NITROGEN 29 mg/dL (7-26); BUN/CREATININE RATIO 44 (6-25); CALCIUM 8.5 mg/dL (8.4-10.2); CARBON DIOXIDE 14 mmol/L (22-29); CHLORIDE 110 mmol/L (98-107); CREATININE, SERUM 0.66 mg/dL (0.57-1.11); EST GLOMERULAR FILTRATION RATE > 60 ML/MIN (60-); GLUCOSE 115 mg/dL (74-118); POTASSIUM 3.8 mmol/L (3.5-5.1); SODIUM 137 mmol/L (136-145)
[2018-08-01 06:39] VITALS: BP 107/58
[2018-08-01] MEDS: INSULIN REGULAR, HUMAN 100 UNIT/1 ML 3ML VIAL SQ SCH ×4 (07:30→21:00)
[2018-08-01] MEDS ORDERED: FENTANYL CITRATE/PF 100MCG/2 ML INJ ONE (08:51)
[2018-08-01] MEDS ORDERED: MIDAZOLAM HCL 2 MG/2 ML VIAL ONE (08:51)
[2018-08-01] MEDS ORDERED: LIDOCAINE HCL 2% LOCAL 20 ML VIAL ONE (08:51)
[2018-08-01] MEDS ORDERED: SODIUM CHLORIDE 0.9% 500ML 1,000 ML ONE (08:51)
[2018-08-01] MEDS ORDERED: IOPAMIDOL 300MG/ML 50ML INFUS..BTL IV ONE (08:52)
[2018-08-01] MEDS: FAMOTIDINE 20 MG/2 ML VIAL IV SCH ×2 (09:00→21:32)
--- NOTE | 2018-08-01 11:24 | Diagnostic Imaging Report ---
Procedure: G-tube catheter replacement Medications: Fentanyl 50 mcg intravenous. The patient's vital signs, including pulse oximetry, were continuously monitored by the interventional radiology nurse. Fluoroscopy time: 2.6 minutes. Dose area product: 1602.1 cGycm2 Contrast used: None Estimated blood loss: Minimal. Complications: No immediate. Procedure in detail: Informed consent for the procedure was obtained from the patient. A 5 Puerto Rican dilator was placed into the tract. Contrast was injected. This does not opacify a patent tract into the stomach. Probing with a 0.035 " Glidewire was then accomplished which was then successful in placing the wire and dilator into the gastric fundus. Local anesthesia and the tract was obtained with 1% Xylocaine. A 0.035 " Amplatz superstiff wire was then placed into the stomach. An 18 [place] [employer] balloon retention G-tube was then placed over the wire. The balloon was inflated with 6 cc of saline. Contrast was injected confirming appropriate location. A sterile dressing was applied. The patient tolerated the procedure well without immediate complication. Impression: Replacement of a G-tube utilizing fluoroscopic and guidewire technique to recannulize the tract and then placement of a new G-tube over a wire. Signed by: Dr. Sanchez Colin DO on 08/01/2018 11:20 AM
[2018-08-01 11:50] VITALS: BP 106/69
--- NOTE | 2018-08-01 16:38 | Consultation ---
DATE OF CONSULTATION: PULMONARY/CRITICAL CARE CONSULTATION CHIEF COMPLAINT: Fever, recurrent diarrhea and tracheal stenosis. HISTORY OF PRESENT ILLNESS: Patient is a 68-year-old woman. She was hospitalized at [facility] about a year ago with respiratory failure and staph pneumonia. She required a tracheostomy at that time. She was subsequently diagnosed with tracheal stenosis, and there was difficulty removing the tracheostomy. She is scheduled to see a tracheal stenosis subspecialist at the [facility] but may miss her appointment because she is currently in the hospital. The patient also has a history of C. difficile colitis about 3 or 4 months ago with a recurrence last month. Apparently she now complains of recurrent diarrhea and some low-grade fevers. PAST SURGICAL HISTORY: 1. Status post tracheostomy. 1. Status post feeding tube. PAST MEDICAL HISTORY: 1. Tracheal stenosis. 2. Recurrent C diff colitis. SOCIAL HISTORY: The patient is not a smoker or a drinker. ALLERGIES: THERE ARE NO KNOWN DRUG ALLERGIES. REVIEW OF SYSTEMS: The patient does have a low-grade fever. She has no headache or neck pain. She has a tracheostomy in place. Cardiac, she has no chest pain. Her dyspnea is stable. She has no abdominal pain. She does have some diarrhea. She has no leg edema. PHYSICAL EXAMINATION: VITAL SIGNS: The patient is afebrile. The T-max was 100.5, and she is 97% saturating on a trach collar. The blood pressure is 105/69. HEENT: Examination shows no facial swelling or erythema. There is a tracheostomy in place. CARDIAC: Exam reveals regular rate and rhythm with a normal S1 and S2. LUNGS: Auscultation reveals clear breath sounds bilaterally. There is no wheezing. ABDOMEN: Is soft and nontender. There is no rebound or guarding. EXTREMITIES: Examination shows no leg edema or calf tenderness. IMPRESSION: 1. Recurrent Clostridium difficile colitis. 1. Tracheal stenosis. 2. History of respiratory failure. PLAN: 1. Patient was started on oral vancomycin along with IV metronidazole. 1. Feeding tube is replaced. 2. Continue tracheostomy care. 3. Patient needs consultation with the tracheal stenosis subspecialist in the [facility]. Job#: [id number] EV
[2018-08-01 16:47] LABS: BASOPHILS # (AUTO) 0.1 (0.0-0.1); BASOPHILS % 0.4 % (0.0-1.0); EOSINOPHILS # (AUTO) 0.2 (0.0-0.4); EOSINOPHILS % 0.9 % (0.0-6.0); HEMATOCRIT 40.2 % (34.2-44.1); HEMOGLOBIN 11.9 g/dL (12.0-16.0); LYMPHOCYTES # (AUTO) 1.1 (1.0-3.2); LYMPHOCYTES % 6.9 % (18.0-39.1); MEAN CORPUSCULAR HEMOGLOBIN 28.1 pg (28-32); MEAN CORPUSCULAR HGB CONC 29.6 g/dL (31-35); MEAN CORPUSCULAR VOLUME 94.8 fL (81-99); NEUTROPHILS % 84.9 % (38.7-80.0); RED BLOOD COUNT 4.24 x10e6/uL (3.6-5.1); RED CELL DISTRIBUTION WIDTH 17.1 % (11.7-14.4)
[2018-08-01 16:51] LABS: PLATELET COUNT 94 x10e3/uL (140-360)
[2018-08-01 17:11] LABS: ANION GAP 15.9 mmol/L (8-16); BLOOD UREA NITROGEN 29 mg/dL (7-26); BUN/CREATININE RATIO 45 (6-25); CALCIUM 8.4 mg/dL (8.4-10.2); CARBON DIOXIDE 14 mmol/L (22-29); CHLORIDE 111 mmol/L (98-107); CREATININE, SERUM 0.64 mg/dL (0.57-1.11); EST GLOMERULAR FILTRATION RATE > 60 ML/MIN (60-); GLUCOSE 99 mg/dL (74-118); MAGNESIUM 1.2 MG/DL (1.3-2.1); POTASSIUM 3.9 mmol/L (3.5-5.1); SODIUM 137 mmol/L (136-145)
[2018-08-01] MEDS: BALSAM PERU/CASTOR OIL 60 GM OINT...G. TP SCH (17:16)
[2018-08-01] MEDS ORDERED: LOPERAMIDE HCL 2 MG CAP PEG PRN (18:00)
[2018-08-01] MEDS ORDERED: SIMETHICONE 80 MG CHEW PEG PRN (18:00)
[2018-08-01] MEDS ORDERED: CLONIDINE HCL 0.1 MG TAB PEG PRN (18:00)
[2018-08-01] MEDS ORDERED: LORAZEPAM 0.5 MG TAB PEG PRN (18:00)
[2018-08-01] MEDS: ACETAMINOPHEN/CODEINE 300MG - 30MG TAB PEG SCH (18:29)
[2018-08-01 20:00] VITALS: BP 104/66
[2018-08-01 20:16] VITALS: BP 104/66
[2018-08-01] MEDS: AMITRIPTYLINE HCL 25 MG TAB PEG SCH (21:32)
[2018-08-01] MEDS: METOPROLOL TARTRATE 25 MG TAB PEG SCH (21:32)
[2018-08-01] MEDS: METOCLOPRAMIDE HCL 10MG/10ML UDC PEG SCH (21:33)
[2018-08-02] VITALS (7 sets, daily range): BP systolic 91–134; BP diastolic 56–78
[2018-08-02] MEDS: METRONIDAZOLE 500MG/NS 100ML 100 ML IV SCH ×4 (03:07→21:54)
[2018-08-02 04:49] LABS: BASOPHILS % 0.3 % (0.0-1.0); EOSINOPHILS # (AUTO) 0.4 (0.0-0.4); EOSINOPHILS % 2.5 % (0.0-6.0); HEMATOCRIT 35.3 % (34.2-44.1); HEMOGLOBIN 11.4 g/dL (12.0-16.0); LYMPHOCYTES # (AUTO) 1.6 (1.0-3.2); LYMPHOCYTES % 10.5 % (18.0-39.1); MEAN CORPUSCULAR HEMOGLOBIN 28.4 pg (28-32); MEAN CORPUSCULAR HGB CONC 32.3 g/dL (31-35); MONOCYTES # (AUTO) 1.1 (0.2-0.8); MONOCYTES % 6.9 % (4.4-11.3); NEUTROPHILS # (AUTO) 12.2 (2.1-6.9); NEUTROPHILS % 78.8 % (38.7-80.0); PLATELET COUNT 102 x10e3/uL (140-360); RED BLOOD COUNT 4.01 x10e6/uL (3.6-5.1); RED CELL DISTRIBUTION WIDTH 16.8 % (11.7-14.4)
[2018-08-02 05:09] LABS: ANION GAP 11.5 mmol/L (8-16); BLOOD UREA NITROGEN 30 mg/dL (7-26); BUN/CREATININE RATIO 46 (6-25); CALCIUM 9.2 mg/dL (8.4-10.2); CARBON DIOXIDE 18 mmol/L (22-29); CHLORIDE 113 mmol/L (98-107); CREATININE, SERUM 0.65 mg/dL (0.57-1.11); EST GLOMERULAR FILTRATION RATE > 60 ML/MIN (60-); GLUCOSE 106 mg/dL (74-118); MAGNESIUM 1.3 MG/DL (1.3-2.1); POTASSIUM 3.5 mmol/L (3.5-5.1); SODIUM 139 mmol/L (136-145)
[2018-08-02] MEDS: ACETAMINOPHEN/CODEINE 300MG - 30MG TAB PEG SCH ×5 (06:00→23:22)
[2018-08-02] MEDS: VANCOMYCIN 250MG/5ML ORAL SOLN GT SCH ×4 (06:13→23:21)
[2018-08-02] MEDS: LEVOTHYROXINE SODIUM 75 MCG TAB PEG SCH (06:13)
[2018-08-02] MEDS: DEXTROSE 5%/0.45% SOD CHL 1,000 ML IV SCH (06:27)
[2018-08-02] MEDS: INSULIN REGULAR, HUMAN 100 UNIT/1 ML 3ML VIAL SQ SCH ×4 (07:30→21:00)
--- NOTE | 2018-08-02 08:54 | Progress Note ---
DATE: PULMONARY/CRITICAL CARE PROGRESS NOTE SUBJECTIVE: Patient reports no diarrhea this morning. Her enteral feeding tube was replaced yesterday. PHYSICAL EXAMINATION VITALS: The patient was afebrile. Temperature was 99.7 yesterday. The blood pressure is 111/66, and the saturation is 96% on 5 liters. HEENT: No facial swelling or erythema. The tracheostomy is in good position. There is no drainage. CARDIAC: Regular rate and rhythm with normal S1 and S2. There are no murmurs or rubs. LUNGS: Auscultation of the lungs reveals clear breath sounds bilaterally. There is no wheezing. ABDOMEN: Soft, nontender. There is no rebound or guarding. EXTREMITIES: No leg edema or calf tenderness. There is no cyanosis or clubbing. MICROBIOLOGICAL DATA: Urine shows greater than 100,000 extended spectrum beta lactamase producing Klebsiella pneumoniae. She also has an extended spectrum beta lactamase E. coli that is sensitive only to Bactrim, tobramycin and amikacin. Serology for C. diff is positive. LABORATORY DATA: White blood cell count is decreased to 15.4, and the hemoglobin is 11.4. The MJR-se-bgemdgbnzk ratio is 30:0.65. The carbon dioxide has increased from 14 to 18. The magnesium remains low at 1.3. IMPRESSION 1. Severe tracheal subglottic stenosis. 2. Chronic respiratory failure. 3. Recurrent Clostridium difficile colitis with sepsis present on admission. 4. Urinary tract infection with extended spectrum beta lactamase producing Escherichia coli and Klebsiella pneumoniae. 5. Hypertension. 6. Hypothyroidism. PLAN 1. Continue the vancomycin and IV Flagyl for the C. diff. 2. Patient continues to require meropenem. 3. I discussed treatment of urinary tract bacteriuria with ID. 4. Monitor blood sugars. 5. Monitor electrolytes. 6. The patient will need consultation with the tracheal specialist at the [facility] for subglottic stenosis. Job#: [id number]
[2018-08-02] MEDS ORDERED: POTASSIUM CHLORIDE 20MEQ/15ML UDC PEG SCH (09:00)
[2018-08-02] MEDS ORDERED: FUROSEMIDE 40 MG TAB PEG SCH (09:00)
[2018-08-02] MEDS: SITAGLIPTIN 100 MG TAB PEG SCH (10:00)
[2018-08-02] MEDS: LACTOBACILLUS ACIDOPHILUS CAPSULE PEG SCH ×2 (10:00→17:00)
[2018-08-02] MEDS: FAMOTIDINE 20 MG/2 ML VIAL IV SCH ×2 (10:00→21:54)
[2018-08-02] MEDS: METOPROLOL TARTRATE 25 MG TAB PEG SCH ×2 (10:00→21:55)
[2018-08-02] MEDS: ALLOPURINOL 300 MG TAB PEG SCH (10:00)
[2018-08-02] MEDS: ASCORBIC ACID 500 MG TAB PEG SCH ×2 (10:00→17:00)
[2018-08-02] MEDS: BALSAM PERU/CASTOR OIL 60 GM OINT...G. TP SCH ×2 (10:00→17:52)
[2018-08-02] MEDS: METOCLOPRAMIDE HCL 10MG/10ML UDC PEG SCH ×3 (10:00→21:55)
[2018-08-02] MEDS ORDERED: SODIUM CHLORIDE 0.9% 250ML 250 ML ONE (10:19)
[2018-08-02] MEDS: ALBUTEROL/IPRATROPIUM 3 ML NEB NEB PRN ×2 (11:20→19:45)
[2018-08-02] MEDS: ACETYLCYSTEINE 200 MG/ML 4ML VIAL INH PRN ×2 (11:20→19:45)
[2018-08-02 15:12] LABS: BASOPHILS % 0.3 % (0.0-1.0); EOSINOPHILS # (AUTO) 0.3 (0.0-0.4); EOSINOPHILS % 1.8 % (0.0-6.0); HEMATOCRIT 35.8 % (34.2-44.1); HEMOGLOBIN 11.5 g/dL (12.0-16.0); LYMPHOCYTES # (AUTO) 1.4 (1.0-3.2); LYMPHOCYTES % 9.3 % (18.0-39.1); MEAN CORPUSCULAR HEMOGLOBIN 28.3 pg (28-32); MEAN CORPUSCULAR HGB CONC 32.1 g/dL (31-35); MEAN CORPUSCULAR VOLUME 88.2 fL (81-99); MONOCYTES % 6.6 % (4.4-11.3); NEUTROPHILS # (AUTO) 12.5 (2.1-6.9); NEUTROPHILS % 80.8 % (38.7-80.0); PLATELET COUNT 127 x10e3/uL (140-360); RED BLOOD COUNT 4.06 x10e6/uL (3.6-5.1); RED CELL DISTRIBUTION WIDTH 16.8 % (11.7-14.4)
[2018-08-02] MEDS: AMITRIPTYLINE HCL 25 MG TAB PEG SCH (21:54)
[2018-08-03] VITALS: BP 94/53
[2018-08-03] MEDS: METRONIDAZOLE 500MG/NS 100ML 100 ML IV SCH ×4 (03:45→22:05)
[2018-08-03 04:00] VITALS: BP 93/54
[2018-08-03] MEDS: ACETAMINOPHEN/CODEINE 300MG - 30MG TAB PEG SCH (04:32)
[2018-08-03 05:04] LABS: BASOPHILS % 0.3 % (0.0-1.0); EOSINOPHILS # (AUTO) 0.3 (0.0-0.4); EOSINOPHILS % 2.6 % (0.0-6.0); HEMATOCRIT 34.1 % (34.2-44.1); HEMOGLOBIN 10.7 g/dL (12.0-16.0); LYMPHOCYTES # (AUTO) 1.4 (1.0-3.2); MEAN CORPUSCULAR HGB CONC 31.4 g/dL (31-35); MEAN CORPUSCULAR VOLUME 89.3 fL (81-99); MONOCYTES # (AUTO) 0.9 (0.2-0.8); MONOCYTES % 7.2 % (4.4-11.3); NEUTROPHILS # (AUTO) 9.6 (2.1-6.9); NEUTROPHILS % 77.8 % (38.7-80.0); PLATELET COUNT 93 x10e3/uL (140-360); RED BLOOD COUNT 3.82 x10e6/uL (3.6-5.1); RED CELL DISTRIBUTION WIDTH 16.8 % (11.7-14.4)
[2018-08-03] MEDS: VANCOMYCIN 250MG/5ML ORAL SOLN GT SCH ×4 (05:21→23:41)
[2018-08-03] MEDS: LEVOTHYROXINE SODIUM 75 MCG TAB PEG SCH (05:21)
[2018-08-03 05:26] LABS: ANION GAP 12.4 mmol/L (8-16); BLOOD UREA NITROGEN 26 mg/dL (7-26); BUN/CREATININE RATIO 41 (6-25); CALCIUM 8.2 mg/dL (8.4-10.2); CARBON DIOXIDE 18 mmol/L (22-29); CHLORIDE 108 mmol/L (98-107); CREATININE, SERUM 0.63 mg/dL (0.57-1.11); EST GLOMERULAR FILTRATION RATE > 60 ML/MIN (60-); GLUCOSE 110 mg/dL (74-118); MAGNESIUM 1.3 MG/DL (1.3-2.1); POTASSIUM 3.4 mmol/L (3.5-5.1); SODIUM 135 mmol/L (136-145)
[2018-08-03] MEDS: ACETYLCYSTEINE 200 MG/ML 4ML VIAL INH PRN ×2 (07:20→19:30)
[2018-08-03] MEDS: ALBUTEROL/IPRATROPIUM 3 ML NEB NEB PRN ×2 (07:20→19:30)
[2018-08-03 07:28] LABS: RBC MORPHOLOGY COMMENT NORMAL
[2018-08-03 07:29] LABS: LYMPHOCYTES % (MANUAL) 8 % (19-48); MONOCYTES % (MANUAL) 7 % (3.4-9.0); NEUTROPHILS % (MANUAL) 85 % (40-74); PLATELET ESTIMATE ADEQUATE; PLATELET MORPHOLOGY COMMENT MODERATE LARGE
[2018-08-03] MEDS: INSULIN REGULAR, HUMAN 100 UNIT/1 ML 3ML VIAL SQ SCH ×4 (07:30→21:00)
[2018-08-03 08:00] VITALS: BP 111/58
[2018-08-03] MEDS ORDERED: ACETAMINOPHEN 325 MG TAB PEG PRN (09:45)
[2018-08-03] MEDS: BALSAM PERU/CASTOR OIL 60 GM OINT...G. TP SCH ×2 (09:50→17:31)
[2018-08-03] MEDS: FAMOTIDINE 20 MG/2 ML VIAL IV SCH ×2 (09:55→22:05)
[2018-08-03] MEDS: LACTOBACILLUS ACIDOPHILUS CAPSULE PEG SCH ×2 (09:55→17:31)
[2018-08-03] MEDS: ALLOPURINOL 300 MG TAB PEG SCH (09:55)
[2018-08-03] MEDS: SITAGLIPTIN 100 MG TAB PEG SCH (09:55)
[2018-08-03] MEDS: ASCORBIC ACID 500 MG TAB PEG SCH ×2 (09:55→17:31)
[2018-08-03] MEDS: METOCLOPRAMIDE HCL 10MG/10ML UDC PEG SCH ×3 (09:55→22:05)
[2018-08-03] MEDS ORDERED: ACETAMINOPHEN 325 MG/10 ML UDC PEG PRN (10:00)
[2018-08-03] MEDS ORDERED: POTASSIUM CHLORIDE 20 MEQ TAB CR PO NR (10:00)
--- NOTE | 2018-08-03 10:39 | Diagnostic Imaging Report ---
Procedure: G-tube catheter replacement Medications: Fentanyl 50 mcg intravenous. The patient's vital signs, including pulse oximetry, were continuously monitored by the interventional radiology nurse. Fluoroscopy time: 2.6 minutes. Dose area product: 1602.1 cGycm2 Contrast used: None Estimated blood loss: Minimal. Complications: No immediate. Procedure in detail: Informed consent for the procedure was obtained from the patient. A 5 Chinese dilator was placed into the tract. Contrast was injected. This does not opacify a patent tract into the stomach. Probing with a 0.035 " Glidewire was then accomplished which was then successful in placing the wire and dilator into the gastric fundus. Local anesthesia and the tract was obtained with 1% Xylocaine. A 0.035 " Amplatz superstiff wire was then placed into the stomach. An 18 Chinese [employer] balloon retention G-tube was then placed over the wire. The balloon was inflated with 6 cc of saline. Contrast was injected confirming appropriate location. A sterile dressing was applied. The patient tolerated the procedure well without immediate complication. Impression: Replacement of a G-tube utilizing fluoroscopic and guidewire technique to recannulize the tract and then placement of a new G-tube over a wire. Signed by: Dr. Sanchez Colin DO on 08/01/2018 11:20 AM
[2018-08-03 12:00] VITALS: BP 110/68
[2018-08-03] MEDS: LOPERAMIDE 1 MG/5 ML PEG SCH ×2 (12:29→17:31)
[2018-08-03] MEDS: METOPROLOL TARTRATE 25 MG TAB PEG SCH ×2 (12:43→22:05)
[2018-08-03 14:54] LABS: BASOPHILS % 0.2 % (0.0-1.0); EOSINOPHILS # (AUTO) 0.3 (0.0-0.4); EOSINOPHILS % 2.5 % (0.0-6.0); HEMATOCRIT 32.4 % (34.2-44.1); HEMOGLOBIN 10.5 g/dL (12.0-16.0); LYMPHOCYTES # (AUTO) 1.2 (1.0-3.2); LYMPHOCYTES % 11.3 % (18.0-39.1); MEAN CORPUSCULAR HEMOGLOBIN 28.5 pg (28-32); MEAN CORPUSCULAR HGB CONC 32.4 g/dL (31-35); MONOCYTES # (AUTO) 0.8 (0.2-0.8); MONOCYTES % 7.1 % (4.4-11.3); NEUTROPHILS # (AUTO) 8.6 (2.1-6.9); NEUTROPHILS % 77.7 % (38.7-80.0); PLATELET COUNT 102 x10e3/uL (140-360); RED BLOOD COUNT 3.68 x10e6/uL (3.6-5.1); RED CELL DISTRIBUTION WIDTH 16.7 % (11.7-14.4)
[2018-08-03 15:10] LABS: ALBUMIN 2.4 g/dL (3.5-5.0); ALKALINE PHOSPHATASE 89 IU/L (40-150); BLOOD UREA NITROGEN 24 mg/dL (7-26); BUN/CREATININE RATIO 41 (6-25); CALCIUM 8.1 mg/dL (8.4-10.2); CARBON DIOXIDE 20 mmol/L (22-29); CHLORIDE 109 mmol/L (98-107); CREATININE, SERUM 0.58 mg/dL (0.57-1.11); EST GLOMERULAR FILTRATION RATE > 60 ML/MIN (60-); GLUCOSE 95 mg/dL (74-118); SODIUM 136 mmol/L (136-145)
[2018-08-03 15:15] LABS: ALANINE AMINOTRANSFERASE < 6 IU/L (0-55)
[2018-08-03 16:00] VITALS: BP 107/67
[2018-08-03] MEDS: OYST-CAL-D 500MG TABLET PO SCH (17:31)
[2018-08-03 20:00] VITALS: BP 111/53
[2018-08-03] MEDS ORDERED: MELATONIN 5 MG TABLET PO PRN (21:00)
[2018-08-03] MEDS: AMITRIPTYLINE HCL 25 MG TAB PEG SCH (22:05)
[2018-08-04] VITALS (7 sets, daily range): BP systolic 93–134; BP diastolic 55–79
[2018-08-04] MEDS: METRONIDAZOLE 500MG/NS 100ML 100 ML IV SCH ×3 (04:15→15:00)
[2018-08-04 05:03] LABS: BASOPHILS % 0.1 % (0.0-1.0); EOSINOPHILS # (AUTO) 0.3 (0.0-0.4); EOSINOPHILS % 3.2 % (0.0-6.0); LYMPHOCYTES # (AUTO) 1.4 (1.0-3.2); LYMPHOCYTES % 16.8 % (18.0-39.1); MEAN CORPUSCULAR HEMOGLOBIN 28.6 pg (28-32); MEAN CORPUSCULAR HGB CONC 32.3 g/dL (31-35); MEAN CORPUSCULAR VOLUME 88.6 fL (81-99); MONOCYTES # (AUTO) 0.6 (0.2-0.8); MONOCYTES % 7.3 % (4.4-11.3); NEUTROPHILS # (AUTO) 5.9 (2.1-6.9); NEUTROPHILS % 71.4 % (38.7-80.0); PLATELET COUNT 88 x10e3/uL (140-360)
[2018-08-04 05:21] LABS: BLOOD UREA NITROGEN 21 mg/dL (7-26); BUN/CREATININE RATIO 36 (6-25); CARBON DIOXIDE 19 mmol/L (22-29); CHLORIDE 114 mmol/L (98-107); CREATININE, SERUM 0.58 mg/dL (0.57-1.11); EST GLOMERULAR FILTRATION RATE > 60 ML/MIN (60-); GLUCOSE 111 mg/dL (74-118); MAGNESIUM 1.3 MG/DL (1.3-2.1); SODIUM 141 mmol/L (136-145)
[2018-08-04] MEDS: LEVOTHYROXINE SODIUM 75 MCG TAB PEG SCH (05:52)
[2018-08-04] MEDS: VANCOMYCIN 250MG/5ML ORAL SOLN GT SCH ×3 (05:52→17:33)
[2018-08-04] MEDS: INSULIN REGULAR, HUMAN 100 UNIT/1 ML 3ML VIAL SQ SCH ×3 (07:30→16:30)
[2018-08-04] MEDS: SITAGLIPTIN 100 MG TAB PEG SCH (09:00)
[2018-08-04] MEDS: LACTOBACILLUS ACIDOPHILUS CAPSULE PEG SCH ×2 (09:00→17:00)
[2018-08-04] MEDS: ASCORBIC ACID 500 MG TAB PEG SCH ×2 (09:00→17:00)
[2018-08-04] MEDS: METOCLOPRAMIDE HCL 10MG/10ML UDC PEG SCH ×2 (09:00→15:00)
[2018-08-04] MEDS: FAMOTIDINE 20 MG/2 ML VIAL IV SCH (09:00)
[2018-08-04] MEDS: BALSAM PERU/CASTOR OIL 60 GM OINT...G. TP SCH ×2 (09:00→17:00)
[2018-08-04] MEDS: METOPROLOL TARTRATE 25 MG TAB PEG SCH (09:00)
[2018-08-04] MEDS: OYST-CAL-D 500MG TABLET PO SCH ×2 (09:00→17:00)
[2018-08-04] MEDS: ALLOPURINOL 300 MG TAB PEG SCH (09:00)
[2018-08-04] MEDS: LOPERAMIDE 1 MG/5 ML PEG SCH ×3 (09:00→17:33)
[2018-08-04] MEDS ORDERED: VANCOCIN HCL250 MG PO (10:13)
[2018-08-04] MEDS ORDERED: IMODIUM2 MG PEG (10:13)
[2018-08-04] MEDS ORDERED: TYLENOL WITH C1 EACH PO (10:13)
--- NOTE | 2018-08-05 06:41 | Discharge Summary ---
ADMISSION DIAGNOSES 1. Displaced gastrostomy tube with history of dysphagia. 2. Sepsis of unknown source. 3. Hypertension. 4. Hypothyroidism. 5. History of respiratory failure secondary to tracheal stenosis with tracheostomy placement. 6. Neuropathy. 7. Gout. 8. Type 2 diabetes. 9. Obesity. 10. Anxiety. 11. Gastroesophageal reflux disease. 12. Dehydration. DISCHARGE DIAGNOSES 1. Displaced gastrostomy tube with history of dysphagia. 2. Sepsis of unknown source. 3. Hypertension. 4. Hypothyroidism. 5. History of respiratory failure secondary to tracheal stenosis with tracheostomy placement. 6. Neuropathy. 7. Gout. 8. Type 2 diabetes. 9. Obesity. 10. Anxiety. 11. Gastroesophageal reflux disease. 12. Dehydration. 13. Clostridium difficile colitis present on admission. 14. present on admission. 15. Hypokalemia. 16. Hypocalcemia, rule out bacteremia. HISTORY: Patient's medical history includes type 2 diabetes, hypertension, neuropathy, hypothyroidism, gout, obesity, respiratory failure secondary to tracheal stenosis, asthma, chronic bronchitis, C. difficile colitis, GERD, PVD, aspiration pneumonia, anxiety, and dysphagia. SURGICAL HISTORY: PEG placement, trach placement, tonsillectomy, hysterectomy, and left hip replacement. FAMILY HISTORY: Unremarkable. SOCIAL HISTORY: Noncontributory. HOSPITAL COURSE: This 68-year-old female complains of pulling out her G-tube accidentally while turning in bed. She was found to have a temp of 100.5 and a heart rate of 120 in the ambulance. She refused to have the G-tube replaced in the ER, so she was admitted and GI consulted. On admission, chest x-ray was negative. IR replaced her G-tube on the . Blood cultures were negative. Urine culture came back positive for ESBL, and according to ID, she does not need to be treated for ESBL. After having the PEG replaced, patient is tolerating tube feeding well. C. difficile toxin came back positive. Flu was negative. Patient started on vancomycin p.o. Due to the recurrent C. difficile, patient will discharge home with 6 weeks of vancomycin p.o. per ID. She will resume all home medicines and a new prescription was given to the patient for Imodium p.r.n., Tylenol No. 3 p.r.n., and 6 weeks of vancomycin p.o. Patient will discharge home and resume all previous speech therapy, physical therapy, and home health orders. Vital signs stable. Patient afebrile. Patient is excited and ready to go home. Dictated by: Pilar Rollins NP Job#: [id number] WILLIAM
== END 2018-08-04 19:30 | disposition home health service (06) | DRG 872 ==
LOC: ER 19:27 → ERHOLD 07-31 00:26 → MED/SURG2 07-31 19:22
PROVIDERS: ADMIT Internal Medicine; ATTEND Internal Medicine
PROC: 0DH63UZ Insertion of Feeding Device into Stomach, Percutaneous Approach (ICD-10-PCS; principal; 2018-07-31)
DX: A41.89 Other specified sepsis (principal); Z43.1 Encounter for attention to gastrostomy; A04.71 Enterocolitis due to Clostridium difficile, recurrent; J95.03 Malfunction of tracheostomy stoma; J96.10 Chronic respiratory failure, unspecified whether with hypoxia or hypercapnia; Z68.41 Body mass index [BMI] 40.0-44.9, adult; M10.9 Gout, unspecified; E03.9 Hypothyroidism, unspecified; E86.0 Dehydration; R82.71 Bacteriuria; R62.7 Adult failure to thrive; G62.9 Polyneuropathy, unspecified; E87.6 Hypokalemia; E83.51 Hypocalcemia; K21.9 Gastro-esophageal reflux disease without esophagitis; E11.42 Type 2 diabetes mellitus with diabetic polyneuropathy; Z79.4 Long term (current) use of insulin; Z16.12 Extended spectrum beta lactamase (ESBL) resistance; E66.9 Obesity, unspecified; L89.322 Pressure ulcer of left buttock, stage 2; B96.1 Klebsiella pneumoniae [K. pneumoniae] as the cause of diseases classified elsewhere; B96.20 Unspecified Escherichia coli [E. coli] as the cause of diseases classified elsewhere; Z79.899 Other long term (current) drug therapy
CPT/HCPCS: 36415; 49440; 71045; 74470; 80048; 80053; 81001; 82550; 82553; 82948; 83605; 83735; 84484; 85025; 87040; 87086; 87186; 87400; 87493; 93005; 94640; 96367; 96372; 96376; 97139; 99284; C1769; J2001; J2185; J2250; J2405; J7030; J7040; J7050

== ENCOUNTER 2018-08-12 04:52 | Inpatient (IN) | payer MEDICARE, OTHER ==
[~2018-08-12] VITALS: Ht 172.7 cm; Wt 93.0 kg
[2018-08-12] MEDS ORDERED: CLINDAMYCIN 600MG / 50ML 50 ML IV ONE (05:45)
--- NOTE | 2018-08-12 06:06 | Diagnostic Imaging Report ---
EXAMINATION: CHEST SINGLE (PORTABLE) INDICATION: Shortness of breath. ^SOB COMPARISON: 07/30/2018 FINDINGS: AP view TUBES and LINES: Stable tracheostomy tube. LUNGS: Lungs are well inflated. Stable chronic appearing changes. There is no evidence of pneumonia or pulmonary edema. PLEURA: No pleural effusion or pneumothorax. HEART AND MEDIASTINUM: The cardiomediastinal silhouette is unremarkable. BONES AND SOFT TISSUES: No acute osseous lesion. Glenohumeral degenerative changes. Soft tissues are unremarkable. UPPER ABDOMEN: No free air under the diaphragm. IMPRESSION: No acute thoracic abnormality. Signed by: DR. Loki Hernándze MD on 08/12/2018 6:03 AM
[2018-08-12 06:26] LABS: BASOPHILS % 0.3 % (0.0-1.0); EOSINOPHILS # (AUTO) 0.2 (0.0-0.4); EOSINOPHILS % 2.1 % (0.0-6.0); HEMATOCRIT 28.7 % (34.2-44.1); HEMOGLOBIN 9.5 g/dL (12.0-16.0); LYMPHOCYTES # (AUTO) 1.3 (1.0-3.2); LYMPHOCYTES % 18.4 % (18.0-39.1); MEAN CORPUSCULAR HGB CONC 33.1 g/dL (31-35); MEAN CORPUSCULAR VOLUME 87.5 fL (81-99); MONOCYTES # (AUTO) 0.6 (0.2-0.8); MONOCYTES % 7.9 % (4.4-11.3); NEUTROPHILS # (AUTO) 5.1 (2.1-6.9); NEUTROPHILS % 70.7 % (38.7-80.0); PLATELET COUNT 63 x10e3/uL (140-360); RED BLOOD COUNT 3.28 x10e6/uL (3.6-5.1); RED CELL DISTRIBUTION WIDTH 16.7 % (11.7-14.4)
[2018-08-12 06:43] LABS: CREATINE KINASE 35 IU/L (29-168)
[2018-08-12 06:45] LABS: ALANINE AMINOTRANSFERASE < 6 IU/L (0-55); ALBUMIN 2.6 g/dL (3.5-5.0); ALBUMIN/GLOBULIN RATIO 0.9 (0.8-2.0); ALKALINE PHOSPHATASE 74 IU/L (40-150); BLOOD UREA NITROGEN 12 mg/dL (7-26); BUN/CREATININE RATIO 19 (6-25); CALCIUM 9.3 mg/dL (8.4-10.2); CARBON DIOXIDE 22 mmol/L (22-29); CHLORIDE 105 mmol/L (98-107); CREATININE, SERUM 0.63 mg/dL (0.57-1.11); EST GLOMERULAR FILTRATION RATE > 60 ML/MIN (60-); GLUCOSE 77 mg/dL (74-118); SODIUM 137 mmol/L (136-145)
[2018-08-12 07:14] LABS: RBC MORPHOLOGY COMMENT NORMAL
[2018-08-12 07:15] LABS: PLATELET ESTIMATE MODERATELY DECREASED; PLATELET MORPHOLOGY COMMENT NORMAL
[2018-08-12 08:25] VITALS: BP 125/71
[2018-08-12 08:45] VITALS: BP 125/71
[2018-08-12 11:41] VITALS: BP 132/66
[2018-08-12] MEDS ORDERED: SIMETHICONE 80 MG CHEW PO PRN (12:15)
[2018-08-12] MEDS ORDERED: LORAZEPAM 0.5 MG TAB PEG PRN (12:15)
[2018-08-12] MEDS ORDERED: ACETAMINOPHEN 325 MG TAB PO PRN (12:15)
[2018-08-12] MEDS ORDERED: ACETAMINOPHEN/CODEINE 300MG - 30MG TAB PO PRN (12:15)
[2018-08-12] MEDS ORDERED: CLONIDINE HCL 0.1 MG TAB PO PRN (12:15)
--- NOTE | 2018-08-12 13:58 | History and Physical ---
CHIEF COMPLAINT: Transient dyspnea and possible mucus plug. HISTORY OF PRESENT ILLNESS: The patient is a 68-year-old woman. 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 She also has recurrent C. diff colitis and is receiving vancomycin as an outpatient. She came to the emergency department complaining of sudden onset of difficulty breathing. She expectorated some phlegm from the tracheostomy and felt better. She denies any fever. She is not having any abdominal pain or diarrhea. She does have a suction machine at home. She also has equipment to change her inner cannula, but she does not have a humidified trach collar. PAST SURGICAL HISTORY 1. Status post tracheostomy. 2. Status post feeding tube. PAST MEDICAL HISTORY 1. Tracheal stenosis. 2. Chronic respiratory failure. 3. Recurrent C. diff colitis. SOCIAL HISTORY: The patient does not smoke or drink. ALLERGIES: NO KNOWN DRUG ALLERGIES. REVIEW OF SYSTEMS: The patient has no fever. She does not complain of headache or neck pain. She has a tracheostomy. She notes her breathing has improved. She does not complain of chest pain. She has no nausea or vomiting. She has no abdominal pain. PHYSICAL EXAMINATION VITAL SIGNS: The patient is afebrile. The blood pressure is 108/55 and the saturation is 98% on a trach collar with 5 L of oxygen. HEENT: Shows no facial swelling or erythema. The nasal mucosa is normal. The tracheostomy site looks clean. There is no drainage or swelling. CARDIOVASCULAR: Reveals regular rate and rhythm with a normal S1 and S2. There are no murmurs or rubs. LUNGS: Auscultation of the lungs reveal clear breath sounds bilaterally. There is no wheezing. ABDOMEN: Soft and nontender. There is no rebound or guarding. EXTREMITIES: Shows no leg edema or calf tenderness. There is no cyanosis or clubbing. SKIN: Shows no rashes. NEUROLOGIC: Shows no focal abnormalities. LABORATORY DATA: White blood cell count is 7.2, hemoglobin is 9.5, and the platelet count is 63. The BUN to creatinine ratio is normal. The other electrolytes were within normal limits. The albumin is 2.6. Chest x-ray shows no active disease. IMPRESSION 1. Mucus plug related to tracheostomy. 2. Chronic respiratory failure. 3. Tracheal stenosis. 4. Recurrent Clostridium difficile colitis. 5. Thrombocytopenia. 6. Anemia, unspecified. PLAN 1. Continue trach care. The patient needs to change her inner cannula on a daily basis and use humidified trach collar at night. 2. Continue vancomycin orally for the C. diff colitis. 3. Avoid excessive antibiotics intravenously, which would worsen her C. diff colitis. 4. Hematology consultation for thrombocytopenia. Job#: [id number] PUN
[2018-08-12] MEDS: METOCLOPRAMIDE HCL 10 MG TAB PEG SCH ×2 (15:00→20:33)
[2018-08-12 15:10] LABS: CREATINE KINASE MB 0.5 ng/mL (0-5.0)
[2018-08-12 15:47] VITALS: BP 145/64
[2018-08-12] MEDS: ASCORBIC ACID 500 MG TAB PO SCH (17:00)
[2018-08-12] MEDS: LACTOBACILLUS ACIDOPHILUS CAPSULE PEG SCH (17:00)
[2018-08-12] MEDS: VANCOMYCIN 250MG/5ML ORAL SOLN PO SCH ×2 (17:59→23:36)
[2018-08-12] MEDS: IPRATROPIUM BROMIDE 0.02% 2.5 ML NEB NEB SCH (19:26)
[2018-08-12 20:00] VITALS: BP 109/57
[2018-08-12] MEDS: METOPROLOL TARTRATE 25 MG TAB PO SCH (20:34)
[2018-08-12] MEDS: AMITRIPTYLINE HCL 25 MG TAB PO SCH (20:34)
--- NOTE | 2018-08-12 23:08 | Consultation ---
DATE OF CONSULTATION: August 12, 2018 REQUESTING PHYSICIAN: Dr. Loc Stein. CONSULTING PHYSICIAN: Dr. Gene Dhillon, hematology-oncology service. REASON FOR CONSULTATION: Evaluation and management of patient with thrombocytopenia. HISTORY OF PRESENTING ILLNESS: Ms. Lopez is a 68-year-old female with multiple medical problems including history of hypothyroidism, diabetes mellitus, tracheal stenosis leading to recurrent aspiration, prior history of respiratory failure, and history of C. diff colitis, admitted through emergency department due to dyspnea secondary to possible mucus plugging. Patient was seen and evaluated by pulmonary service. Initial laboratory workup revealed thrombocytopenia. Subsequently, hematology has been consulted to assist with the management. PAST MEDICAL HISTORY 1. Hypothyroidism. 2. Diabetes mellitus. 3. Recurrent aspiration. 4. Recent history of C. diff colitis. 5. Chronic respiratory failure. PAST SURGICAL HISTORY 1. Status post tracheostomy. 2. Status post feeding tube placement. 3. Tonsillectomy. 4. Hysterectomy. SOCIAL HISTORY: No reported history of smoking, alcohol use or illicit drug use. ALLERGIES: NO KNOWN DRUG ALLERGIES. CURRENT MEDICATIONS: Reviewed as per electronic medical record. REVIEW OF SYSTEMS: No reported history of fever, chills, or headache; however, complaining of shortness of breath. PHYSICAL EXAMINATION VITAL SIGNS: Reviewed as per electronic medical record. HEENT: PERRLA. Extraocular movements intact. Head is atraumatic and normocephalic. NECK: Supple. CVS: S1, S2 audible. RESPIRATORY: Decreased bilateral air entry. ABDOMEN: Positive bowel sounds. EXTREMITIES: Negative cyanosis. NEURO: Patient is alert. LABORATORY DATA: White blood cell count of 7.24, hemoglobin 9.5, hematocrit 28.7, and platelets 63,000. BUN 12 and creatinine 0.6. ASSESSMENT AND PLAN: Ms. Lopez is 68-year-old female with multiple medical problems including known history of hypothyroidism, diabetes mellitus, chronic respiratory failure, tracheal stenosis, and recent history of Clostridium difficile colitis, now admitted due to shortness of breath. She was noted to have mucus plugging. Laboratory workup revealed thrombocytopenia. Subsequently, hematology has been consulted to assist with the management. I have reviewed the record and discussed at length with the staff. Overall, this appeared to be nheua-nm-[id number] thrombocytopenia. Patient's platelet count dropped down to 40s range, presently noncritical range, so we will not recommend any transfusion. However, I will get baseline workup to evaluate the cause of thrombocytopenia which is uncertain. Patient also with anemia which appeared to be normocytic and normochromic. I will get baseline workup and closely monitor for now. Thank you for the consult. I will continue to be available. Please call with questions. Job#: [id number] CHRISS
[2018-08-13] MEDS: IPRATROPIUM BROMIDE 0.02% 2.5 ML NEB NEB SCH ×4 (00:30→19:25)
[2018-08-13 02:00] VITALS: BP 123/65
[2018-08-13 04:00] VITALS: BP 98/54
[2018-08-13] MEDS: VANCOMYCIN 250MG/5ML ORAL SOLN PO SCH ×3 (05:05→18:00)
[2018-08-13] MEDS: LEVOTHYROXINE SODIUM 75 MCG TAB PO SCH (05:05)
[2018-08-13 06:49] LABS: BASOPHILS % 0.4 % (0.0-1.0); EOSINOPHILS # (AUTO) 0.2 (0.0-0.4); EOSINOPHILS % 3.1 % (0.0-6.0); HEMATOCRIT 26.6 % (34.2-44.1); HEMOGLOBIN 8.6 g/dL (12.0-16.0); LYMPHOCYTES # (AUTO) 1.3 (1.0-3.2); LYMPHOCYTES % 24.2 % (18.0-39.1); MEAN CORPUSCULAR HEMOGLOBIN 28.5 pg (28-32); MEAN CORPUSCULAR HGB CONC 32.3 g/dL (31-35); MEAN CORPUSCULAR VOLUME 88.1 fL (81-99); MONOCYTES # (AUTO) 0.4 (0.2-0.8); MONOCYTES % 7.8 % (4.4-11.3); NEUTROPHILS # (AUTO) 3.5 (2.1-6.9); NEUTROPHILS % 63.2 % (38.7-80.0); RED BLOOD COUNT 3.02 x10e6/uL (3.6-5.1); RED CELL DISTRIBUTION WIDTH 16.8 % (11.7-14.4)
[2018-08-13 06:50] LABS: RETICULOCYTE % 1.5 % (0.8-2.2)
[2018-08-13] MEDS: LEVALBUTEROL HCL SOLN NEBU 0.63 MG/3 ML NEB INH PRN ×2 (06:52→12:45)
[2018-08-13 06:57] LABS: PLATELET COUNT 46 x10e3/uL (140-360)
[2018-08-13 07:12] LABS: CREATINE KINASE MB 0.5 ng/mL (0-5.0)
[2018-08-13 07:55] LABS: ALBUMIN 2.3 g/dL (3.5-5.0); ALBUMIN/GLOBULIN RATIO 0.8 (0.8-2.0); ALKALINE PHOSPHATASE 69 IU/L (40-150); ANION GAP 9.9 mmol/L (8-16); BLOOD UREA NITROGEN 9 mg/dL (7-26); BUN/CREATININE RATIO 16 (6-25); CARBON DIOXIDE 26 mmol/L (22-29); CHLORIDE 104 mmol/L (98-107); CREATININE, SERUM 0.56 mg/dL (0.57-1.11); EST GLOMERULAR FILTRATION RATE > 60 ML/MIN (60-); GLUCOSE 84 mg/dL (74-118); POTASSIUM 3.9 mmol/L (3.5-5.1); SODIUM 136 mmol/L (136-145)
[2018-08-13 07:56] LABS: ALANINE AMINOTRANSFERASE < 6 IU/L (0-55)
[2018-08-13 07:57] LABS: ALBUMIN 2.3 g/dL (3.5-5.0); BILIRUBIN,DIRECT 0.2 mg/dL (0.0-0.5)
[2018-08-13 07:59] VITALS: BP 112/58
[2018-08-13] MEDS ORDERED: DEXTROSE 50% SYRINGE 50 ML IV PRN (08:15)
[2018-08-13] MEDS ORDERED: LOPERAMIDE HCL 2 MG CAP PEG PRN (08:15)
[2018-08-13 08:18] LABS: FERRITIN 150.92 ng/mL (4.63-204.00)
[2018-08-13] MEDS: ALLOPURINOL 100 MG TAB PO SCH (08:30)
[2018-08-13] MEDS: METOPROLOL TARTRATE 25 MG TAB PO SCH ×2 (08:30→20:51)
[2018-08-13] MEDS: ASCORBIC ACID 500 MG TAB PO SCH ×2 (08:30→17:00)
[2018-08-13 08:50] LABS: LYMPHOCYTES % (MANUAL) 28 % (19-48); MONOCYTES % (MANUAL) 8 % (3.4-9.0); NEUTROPHILS % (MANUAL) 64 % (40-74)
[2018-08-13 08:51] LABS: PLATELET ESTIMATE MARKEDLY DECREASED; PLATELET MORPHOLOGY COMMENT NORMAL; RBC MORPHOLOGY COMMENT NORMAL
[2018-08-13] MEDS ORDERED: BALSAM PERU/CASTOR OIL 60 GM OINT...G. TP SCH (09:00)
[2018-08-13] MEDS: SITAGLIPTIN 100 MG TAB PO SCH (09:00)
[2018-08-13] MEDS: POTASSIUM CHLORIDE 10MEQ EA PO SCH (09:00)
[2018-08-13] MEDS: METOCLOPRAMIDE HCL 10 MG TAB PEG SCH ×3 (09:30→20:51)
[2018-08-13] MEDS: LACTOBACILLUS ACIDOPHILUS CAPSULE PEG SCH ×2 (09:30→17:00)
[2018-08-13] MEDS: FUROSEMIDE 40 MG TAB PO SCH (09:30)
[2018-08-13] MEDS: NYSTATIN 15 GM POWDER UD BTL TOP SCH ×2 (10:00→17:00)
[2018-08-13] MEDS: BALSAM PERU/CASTOR OIL 60 GM OINT...G. TP SCH ×2 (10:36→17:00)
[2018-08-13] MEDS: INSULIN LISPRO 100 UNIT/1 ML 3ML VIAL SQ SCH ×3 (11:30→20:52)
[2018-08-13 12:16] VITALS: BP 113/56
--- NOTE | 2018-08-13 12:22 | Diagnostic Imaging Report ---
EXAM: Complete Abdominal Ultrasound INDICATION: ^evaluate liver and spleen COMPARISON: CT abdomen and pelvis 06/21/2018 TECHNIQUE: Transverse and longitudinal images of the upper abdomen were obtained. FINDINGS: Liver: Size: 18.7 cm in the right midclavicular line, enlarged Appearance: Increased echogenicity, smooth contour Mass: No focal masses Spleen: Size: 11.1 cm in length, normal Echogenicity: Normal Mass: No focal masses Gallbladder: Stones/Sludge: Mobile, echogenic stones are noted in the gallbladder lumen. Wall: 0.3 cm Appearance: No wall thickening, pericholecystic fluid or hydrops. Sonographic Rodriguez's Sign: Negative Bile Ducts: Intrahepatic Ducts: No dilatation Extrahepatic Ducts: Common bile duct measures 0.7 cm, upper limit of normal to minimally dilated Pancreas: Visualized portions of the neck and proximal body are unremarkable. Kidneys: Length: Right 10.8 cm Left 10.3 cm Echogenicity: Normal Collecting System: No hydronephrosis Stone: None Cyst/Mass: None Vessels: Aorta: Obscured by overlying bowel gas. Inferior Vena Cava: Obscured by overlying bowel gas. Main Portal Vein: 0.8 cm, normal size with hepatopetal flow. Free Fluid: No ascites or pleural effusion IMPRESSION: 1. Hepatomegaly with diffuse fatty infiltration. No focal lesions. 2. Unremarkable spleen. 3. Cholelithiasis, without sonographic evidence of cholecystitis. Signed by: Dr. Og Arrington M.D. on 08/13/2018 12:19 PM
[2018-08-13 15:56] VITALS: BP 112/62
[2018-08-13 20:00] VITALS: BP 116/54
[2018-08-13] MEDS: AMITRIPTYLINE HCL 25 MG TAB PO SCH (20:51)
[2018-08-14] VITALS (8 sets, daily range): BP systolic 104–141; BP diastolic 56–65
[2018-08-14] MEDS: IPRATROPIUM BROMIDE 0.02% 2.5 ML NEB NEB SCH ×4 (01:05→19:20)
[2018-08-14 05:34] LABS: BASOPHILS % 0.4 % (0.0-1.0); EOSINOPHILS # (AUTO) 0.2 (0.0-0.4); HEMATOCRIT 28.1 % (34.2-44.1); HEMOGLOBIN 9.1 g/dL (12.0-16.0); LYMPHOCYTES # (AUTO) 1.5 (1.0-3.2); LYMPHOCYTES % 26.8 % (18.0-39.1); MEAN CORPUSCULAR HEMOGLOBIN 28.7 pg (28-32); MEAN CORPUSCULAR HGB CONC 32.4 g/dL (31-35); MEAN CORPUSCULAR VOLUME 88.6 fL (81-99); MONOCYTES # (AUTO) 0.5 (0.2-0.8); NEUTROPHILS # (AUTO) 3.4 (2.1-6.9); NEUTROPHILS % 60.6 % (38.7-80.0); PLATELET COUNT 50 x10e3/uL (140-360); RED BLOOD COUNT 3.17 x10e6/uL (3.6-5.1); RED CELL DISTRIBUTION WIDTH 16.7 % (11.7-14.4)
[2018-08-14 05:47] LABS: BLOOD UREA NITROGEN 9 mg/dL (7-26); BUN/CREATININE RATIO 16 (6-25); CALCIUM 8.9 mg/dL (8.4-10.2); CARBON DIOXIDE 26 mmol/L (22-29); CHLORIDE 101 mmol/L (98-107); CREATININE, SERUM 0.57 mg/dL (0.57-1.11); EST GLOMERULAR FILTRATION RATE > 60 ML/MIN (60-); GLUCOSE 100 mg/dL (74-118); MAGNESIUM 1.2 MG/DL (1.3-2.1); SODIUM 133 mmol/L (136-145)
[2018-08-14] MEDS: LEVOTHYROXINE SODIUM 75 MCG TAB PO SCH (06:00)
[2018-08-14] MEDS: VANCOMYCIN 250MG/5ML ORAL SOLN PO SCH ×5 (06:00→23:50)
[2018-08-14 06:08] LABS: FERRITIN 138.64 ng/mL (4.63-204.00)
[2018-08-14 06:48] LABS: FOLATE 5.7 ng/mL (7.0-15.4)
[2018-08-14] MEDS: INSULIN LISPRO 100 UNIT/1 ML 3ML VIAL SQ SCH ×4 (07:30→21:00)
[2018-08-14] MEDS ORDERED: FOLIC ACID1 MG PO (08:37)
[2018-08-14] MEDS ORDERED: MAGNESIUM SULF 1GRAM/DEXTROSE 100 ML IV ONE (08:45)
[2018-08-14] MEDS: BALSAM PERU/CASTOR OIL 60 GM OINT...G. TP SCH ×2 (09:10→17:43)
[2018-08-14] MEDS: NYSTATIN 15 GM POWDER UD BTL TOP SCH ×2 (09:10→17:43)
[2018-08-14] MEDS ORDERED: ACETYLCYSTEINE 200 MG/ML 4ML VIAL INH PRN (09:15)
[2018-08-14] MEDS: METOCLOPRAMIDE HCL 10 MG TAB PEG SCH ×3 (10:19→21:00)
[2018-08-14] MEDS: FOLIC ACID 1 MG TAB PO SCH (10:19)
[2018-08-14] MEDS: LACTOBACILLUS ACIDOPHILUS CAPSULE PEG SCH ×2 (10:19→17:42)
[2018-08-14] MEDS: POTASSIUM CHLORIDE 10MEQ EA PO SCH (10:20)
[2018-08-14] MEDS: FUROSEMIDE 40 MG TAB PO SCH (10:20)
[2018-08-14] MEDS: METOPROLOL TARTRATE 25 MG TAB PO SCH ×2 (10:20→21:00)
[2018-08-14] MEDS: ASCORBIC ACID 500 MG TAB PO SCH ×2 (10:21→17:42)
[2018-08-14] MEDS: SITAGLIPTIN 100 MG TAB PO SCH (10:21)
[2018-08-14] MEDS: ALLOPURINOL 100 MG TAB PO SCH (10:21)
[2018-08-14] MEDS ORDERED: MAGNESIUM SULF 1GRAM/DEXTROSE 100 ML IV SCH (13:15)
[2018-08-14] MEDS: AMITRIPTYLINE HCL 25 MG TAB PO SCH (21:00)
[2018-08-14] MEDS: LEVALBUTEROL HCL SOLN NEBU 0.63 MG/3 ML NEB INH PRN (23:05)
[2018-08-15] VITALS (8 sets, daily range): BP systolic 98–141; BP diastolic 20–71
[2018-08-15] MEDS: IPRATROPIUM BROMIDE 0.02% 2.5 ML NEB NEB SCH ×3 (02:10→19:36)
[2018-08-15] MEDS: LEVOTHYROXINE SODIUM 75 MCG TAB PO SCH (05:47)
[2018-08-15] MEDS: VANCOMYCIN 250MG/5ML ORAL SOLN PO SCH ×3 (05:48→18:21)
[2018-08-15 05:54] LABS: BASOPHILS % 0.3 % (0.0-1.0); EOSINOPHILS # (AUTO) 0.2 (0.0-0.4); EOSINOPHILS % 2.9 % (0.0-6.0); HEMATOCRIT 29.9 % (34.2-44.1); HEMOGLOBIN 9.6 g/dL (12.0-16.0); LYMPHOCYTES # (AUTO) 1.5 (1.0-3.2); LYMPHOCYTES % 22.4 % (18.0-39.1); MEAN CORPUSCULAR HEMOGLOBIN 28.4 pg (28-32); MEAN CORPUSCULAR HGB CONC 32.1 g/dL (31-35); MEAN CORPUSCULAR VOLUME 88.5 fL (81-99); MONOCYTES # (AUTO) 0.5 (0.2-0.8); MONOCYTES % 7.7 % (4.4-11.3); NEUTROPHILS # (AUTO) 4.3 (2.1-6.9); NEUTROPHILS % 65.8 % (38.7-80.0); PLATELET COUNT 55 x10e3/uL (140-360); RED BLOOD COUNT 3.38 x10e6/uL (3.6-5.1); RED CELL DISTRIBUTION WIDTH 16.4 % (11.7-14.4)
[2018-08-15 06:14] LABS: ANION GAP 11.9 mmol/L (8-16); BLOOD UREA NITROGEN 11 mg/dL (7-26); BUN/CREATININE RATIO 19 (6-25); CALCIUM 9.1 mg/dL (8.4-10.2); CARBON DIOXIDE 28 mmol/L (22-29); CHLORIDE 100 mmol/L (98-107); CREATININE, SERUM 0.59 mg/dL (0.57-1.11); EST GLOMERULAR FILTRATION RATE > 60 ML/MIN (60-); GLUCOSE 105 mg/dL (74-118); MAGNESIUM 1.4 MG/DL (1.3-2.1); POTASSIUM 3.9 mmol/L (3.5-5.1); SODIUM 136 mmol/L (136-145)
[2018-08-15] MEDS: INSULIN LISPRO 100 UNIT/1 ML 3ML VIAL SQ SCH ×4 (07:30→20:53)
--- NOTE | 2018-08-15 09:02 | Progress Note ---
DATE: August 15, 2018 PULMONARY PROGRESS NOTE SUBJECTIVE: The patient was evaluated by hematology for thrombocytopenia. Ultrasound of her liver showed some hepatomegaly but no splenomegaly. She does not complain of any diarrhea. Her breathing is back to baseline. She does not report any increased cough or congestion. OBJECTIVE VITAL SIGNS: The patient is afebrile. The vital signs are stable. She is 98% saturated on a trach shield. The trach site is clean with no drainage. CARDIAC: Regular rate and rhythm with normal S1 and S2. LUNGS: Auscultation of the lungs reveals clear breath bilaterally. There is no wheezing. ABDOMEN: Soft and nontender. There is no rebound or guarding. There is no leg edema or calf tenderness. There is no cyanosis or clubbing. IMPRESSION 1. Tracheal stenosis and chronic respiratory failure. 2. Mucus plug with transient difficulty breathing. 3. Thrombocytopenia. 4. Recurrent Clostridium difficile colitis requiring prolonged treatment with vancomycin. PLAN 1. Patient already consulted with the [facility]. The diesel scoop operator recommended a series of treatments with the hope of dilating the tracheal stenosis and decannulating the patient. She still has 4 additional treatments. 2. Continue humidified trach shield and daily care of the tracheostomy at home. 3. Patient should change or clean her inner cannula daily. 4. Patient needs a suction machine at home. 5. Continue oral vancomycin as an outpatient and taper gradually over time. If the vancomycin is tapered too quickly, her C. diff colitis will return. 6. Continue evaluation for thrombocytopenia. 7. Follow up with Dr. Kerns in the office in 2 to 3 weeks. Job#: [id number]
[2018-08-15] MEDS: SITAGLIPTIN 100 MG TAB PO SCH (09:30)
[2018-08-15] MEDS: POTASSIUM CHLORIDE 10MEQ EA PO SCH (09:30)
[2018-08-15] MEDS: LACTOBACILLUS ACIDOPHILUS CAPSULE PEG SCH ×2 (09:30→17:34)
[2018-08-15] MEDS: METOPROLOL TARTRATE 25 MG TAB PO SCH ×2 (09:30→20:51)
[2018-08-15] MEDS: FOLIC ACID 1 MG TAB PO SCH (09:30)
[2018-08-15] MEDS: METOCLOPRAMIDE HCL 10 MG TAB PEG SCH ×3 (09:30→20:50)
[2018-08-15] MEDS: FUROSEMIDE 40 MG TAB PO SCH (09:30)
[2018-08-15] MEDS: ALLOPURINOL 100 MG TAB PO SCH (09:30)
[2018-08-15] MEDS: ASCORBIC ACID 500 MG TAB PO SCH ×2 (09:30→17:34)
[2018-08-15] MEDS: BALSAM PERU/CASTOR OIL 60 GM OINT...G. TP SCH ×2 (10:27→17:34)
[2018-08-15] MEDS: NYSTATIN 15 GM POWDER UD BTL TOP SCH ×2 (10:27→17:34)
[2018-08-15] MEDS: AMITRIPTYLINE HCL 25 MG TAB PO SCH (20:51)
[2018-08-16] VITALS: BP 108/56
[2018-08-16] MEDS: IPRATROPIUM BROMIDE 0.02% 2.5 ML NEB NEB SCH ×3 (00:50→12:44)
[2018-08-16 04:00] VITALS: BP 164/71
[2018-08-16] MEDS: LEVOTHYROXINE SODIUM 75 MCG TAB PO SCH (06:00)
[2018-08-16] MEDS: VANCOMYCIN 250MG/5ML ORAL SOLN PO SCH ×3 (06:00→12:00)
[2018-08-16] MEDS: INSULIN LISPRO 100 UNIT/1 ML 3ML VIAL SQ SCH ×2 (07:30→11:30)
[2018-08-16 08:00] VITALS: BP 119/65
[2018-08-16] MEDS: BALSAM PERU/CASTOR OIL 60 GM OINT...G. TP SCH (08:30)
[2018-08-16] MEDS: NYSTATIN 15 GM POWDER UD BTL TOP SCH (08:30)
[2018-08-16] MEDS: SITAGLIPTIN 100 MG TAB PO SCH (09:00)
[2018-08-16] MEDS: POTASSIUM CHLORIDE 10MEQ EA PO SCH (09:00)
[2018-08-16] MEDS: METOPROLOL TARTRATE 25 MG TAB PO SCH (09:00)
[2018-08-16] MEDS: ALLOPURINOL 100 MG TAB PO SCH (09:00)
[2018-08-16] MEDS: LACTOBACILLUS ACIDOPHILUS CAPSULE PEG SCH (09:00)
[2018-08-16] MEDS: METOCLOPRAMIDE HCL 10 MG TAB PEG SCH (09:00)
[2018-08-16] MEDS: FUROSEMIDE 40 MG TAB PO SCH (09:00)
[2018-08-16] MEDS: ASCORBIC ACID 500 MG TAB PO SCH (09:00)
[2018-08-16] MEDS: FOLIC ACID 1 MG TAB PO SCH (09:00)
[2018-08-16 12:00] VITALS: BP 125/63
[2018-08-16 16:00] VITALS: BP 119/65
--- NOTE | 2018-08-17 18:00 | Discharge Summary ---
PERTINENT HISTORY AND PHYSICAL FINDINGS: The patient is a 68-year-old female who has tracheal stenosis following respiratory failure and pneumonia. She also had recurrent C. difficile colitis and was receiving oral vancomycin as an outpatient. She arrived at the emergency department complaining of sudden onset of difficulty breathing. She expectorated some phlegm from her tracheostomy and felt better. She denied any fever or abdominal pain or diarrhea at that time. She does not have a suction machine at home. She has equipment available to change her inner cannula but she does not have a humidified trach collar. PAST SURGICAL HISTORY: Status post tracheostomy and status post feeding tube placement. PAST MEDICAL HISTORY: Tracheal stenosis, chronic respiratory failure and recurrent C. difficile colitis. ALLERGIES: NO KNOWN DRUG ALLERGIES. ADMISSION DIAGNOSES 1. Mucus plug related to tracheostomy. 2. Ioulx-uq-vnxrtpo respiratory failure. 3. Tracheal stenosis. 4. Recurrent Clostridium difficile colitis. 5. Thrombocytopenia. 6. Anemia, unspecified. DISCHARGE DIAGNOSES 1. Arzpr-mw-givhlmt respiratory failure, status post respiratory distress on 08/14/18. 2. Mucus plug related to tracheostomy. 3. Tracheal stenosis, tracheostomy in situ. 4. On supplemental oxygen by humidified aerosol trach collar, hypoxemia requiring supplemental oxygen. 5. Hypertension. 6. Recurrent Clostridium difficile colitis. 7. Thrombocytopenia. 8. Anemia. 9. Type 2 diabetes mellitus. 10. Hypothyroidism. 11. Hypomagnesemia. CONSULTING PHYSICIANS 1. Dr. Juan C Kerns, multifocal button grinder. 2. Dr. Gene Dhillon, after school teacher. PERTINENT DIAGNOSTICS AND LABS: White blood cell count on admission was 7.24, hemoglobin 9.5, hematocrit 28.7, platelet count 63,000, sodium 136, potassium 3.9, BUN 11, creatinine 0.59, GFR greater than 60, calcium 9.1, magnesium 1.4, B-natriuretic peptide 92.3. Stool for occult blood on the was negative. C. difficile toxin collected on August 14 was negative and on August 12 sputum culture grew Pseudomonas aeruginosa. She had 2 blood cultures collected in the , which were both negative without growth. She had a chest x-ray on the which showed no acute thoracic abnormality. The ultrasound of the abdomen performed on August 13 showed hepatomegaly with diffuse fatty infiltration without focal lesions as well as cholelithiasis without evidence of cholecystitis. A 12-lead EKG done on August 12 showed normal sinus rhythm with right bundle branch block. Oral vancomycin was continued via the PEG tube. The patient was advised to change her inner cannula on a daily basis and to use humidified trach collar at night. Mucomyst was added in an effort to thin her secretions. Her platelet count was 55,000 on August 15 and she was cleared by hematology for discharge. On the her finger stick blood glucose levels were 129, 121 and 129, and so her diabetes was controlled. Per documentation, casework manager has indicated that home health and durable medical equipment was all in place at the time of discharge home. Tube feeding rate was 50 mL an hour at the time of discharge. The patient to remain n.p.o. Continue feedings via PEG tube. Per hematology notes, the patient's platelet count dropped down to the 40s range; however, did improve. The anemia was normocytic and normochromic. Unable to discern from the handwritten notes from hematology the underlying etiology for the [id number] thrombocytopenia. However, it is evident that the patient was okay to discharge based on hematology note from August [address] Kerns's note dated August 16, okay to discharge the patient home. She is to follow up with Dr. Kerns for the tracheal stenosis. Activity level as tolerated. Vital signs on the day of discharge: Temperature 98.8, heart rate 77, respirations 20, blood pressure 119/65 with a pulse of 83, oxygen saturation 98%. Tracheostomy size was 8. She was on FO2 of 28% via humidified aerosol trach collar at the time of discharge. The nurses had not reported any tube feed residual. Dictated by: Kei Bundy Acute Care Nurse Practitioner Job#: [id number]
== END 2018-08-16 18:50 | disposition home health service (06) | DRG 205 ==
LOC: ER 04:52 → ERHOLD 06:34 → MED/SURG3 08:08
PROVIDERS: ADMIT Internal Medicine; ATTEND Internal Medicine
DX: J95.03 Malfunction of tracheostomy stoma (principal); J96.20 Acute and chronic respiratory failure, unspecified whether with hypoxia or hypercapnia; T17.490A Other foreign object in trachea causing asphyxiation, initial encounter; A04.71 Enterocolitis due to Clostridium difficile, recurrent; Z99.81 Dependence on supplemental oxygen; Y83.3 Surgical operation with formation of external stoma as the cause of abnormal reaction of the patient, or of later complication, without mention of misadventure at the time of the procedure; E11.40 Type 2 diabetes mellitus with diabetic neuropathy, unspecified; Z79.4 Long term (current) use of insulin; E03.9 Hypothyroidism, unspecified; E83.42 Hypomagnesemia; F41.9 Anxiety disorder, unspecified; D69.6 Thrombocytopenia, unspecified; D64.9 Anemia, unspecified; Z93.1 Gastrostomy status; L89.310 Pressure ulcer of right buttock, unstageable
CPT/HCPCS: 36415; 71045; 76700; 80048; 80053; 80076; 82270; 82550; 82553; 82607; 82728; 82746; 82948; 83540; 83735; 83880; 84466; 84484; 85025; 85045; 85651; 87040; 87070; 87186; 87205; 87493; 93005; 94640; 97139; 99284; J3475

== ENCOUNTER 2018-11-16 12:34 | Emergency (ER) | payer MEDICARE, OTHER ==
[~2018-11-16] VITALS: Ht 172.7 cm; Wt 93.0 kg
[~2018-11-16 12:34] MED LIST changes: +FOLIC ACID1 MG PO
--- OUTSIDE RECORDS SUMMARY | 2018-11-16 12:36 | XMS REPORT | Continuity of Care Document ---
Author Author [facility] Interface Address Unknown Phone Unavailable Problems Problem Status Onset Date Classification Date Reported Comments Source Aspiration pneumonia Active Problem 08/17/2018 [facility] Diarrhea Active Problem 08/17/2018 [facility] Dislodged gastrostomy tube Active Problem 08/17/2018 [facility] Dyspnea Active Problem 08/17/2018 [facility] History of ESBL Klebsiella pneumoniae infection Active Problem 08/17/2018 [facility] Leukocytosis Active Problem 08/17/2018 [facility] Thrombocytopenia Active Problem 08/17/2018 [facility] Trachea, 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 [facility] Tracheostomy complication Active Problem 08/17/2018 [facility] Tracheostomy malfunction Active Problem 08/17/2018 [facility] UTI Active Problem 08/17/2018 [facility] Medications Medication Details Route Status Patient Instructions Ordering Provider Order Date Source Folic Acid 1 Mg Tablet Daily Active [place] 08/14/2018 [facility] Acetaminophen With Codeine (Tylenol With Codeine #3 Tablet) 1 Each Tablet Every 6 Hours for Pain Active [place] 08/04/2018 [facility] Loperamide Hcl (Imodium*) 2 Mg Cap Three Times A Day as needed for Diarrhea Active [place] 08/04/2018 [facility] Vancomycin Hcl (Vancocin Hcl) 250 Mg Capsule Every 6 Hours Active [place] 08/04/2018 [facility] Allopurinol 300 Mg Tablet Daily Active [place] 06/28/2018 [facility] Amitriptyline Hcl 25 Mg Tablet Bedtime Active [place] 06/28/2018 [facility] Clonidine Hcl (Catapres) 0.1 Mg Tablet Every 8 Hours as needed for Sbp>160 Active [place] 06/28/2018 [facility] Furosemide (Lasix) 40 Mg Tablet Daily Active [place] 06/28/2018 [facility] Insulin Aspart (Novolog) 100 Units/1 Ml Inj Every 6 Hours Active SLIDING SCALE: 150-200 3 UNITS 201-250 6 UNITS 251-300 9 UNITS 301-350+ 12 UNITS [place] 06/28/2018 [facility] Lactobacillus Acidophilus (Acidophilus) 1 Each Tab.chew Twice A Day Active [place] 06/28/2018 [facility] Levothyroxine Sodium (Synthroid) 75 Mcg Tab Daily@06 Active [place] 06/28/2018 [facility] Lorazepam 0.5 Mg Tablet Three Times A Day as needed for Anxiety Active [place] 06/28/2018 [facility] Metoclopramide Hcl (Reglan) 5 Mg Tablet Three Times A Day Active [place] 06/28/2018 [facility] Mucomyst Twice A Day as needed for Thick Secretions Active 10% MIX WITH ALBUTEROL [place] 06/28/2018 [facility] Potassium Chloride (K Dur*) 10 Meq Tabcr Daily Active [place] 06/28/2018 [facility] Sitagliptin Phosphate (Januvia) 100 Mg Tablet Daily Active [place] 06/28/2018 [facility] Acetaminophen With Codeine (Tylenol With Codeine #3 Tablet) 1 Each Tablet, 300 Mg Oral Every 6 Hours for Pain Active [place] 06/28/2018 [facility] Allopurinol 300 Mg Tablet, 100 Mg Oral Daily Active 06/28/2018 [facility] Amitriptyline Hcl 25 Mg Tablet, 25 Mg Oral Bedtime Active 06/28/2018 [facility] Budesonide (Budesonide Ec) 3 Mg Capdr...er, 3 Mg Inhalation Daily Active 06/28/2018 [facility] Cholestyramine (Cholestyramine Light Packet) 4 Gm Pack, 4 Gm Oral Twice A Day as needed for Diarrhea Active [place] 06/28/2018 [facility] Furosemide (Lasix) 40 Mg Tablet, 40 Mg Oral Daily Active 06/28/2018 [facility] Lactobacillus Acidophilus (Acidophilus) 1 Each Tab.chew, 1 Tab Oral Daily Active 06/28/2018 [facility] Levothyroxine Sodium 50 Mcg Tablet, 50 Mcg Oral Daily Active 06/28/2018 [facility] Levothyroxine Sodium (Synthroid) 50 Mcg Tab, 50 Mcg Oral Today At 6:30AM Active 06/28/2018 [facility] Loperamide Hcl (Imodium*) 2 Mg Cap, 2 Mg Peg Tube Three Times A Day as needed for Diarrhea Active [place] 06/28/2018 [facility] Lorazepam 0.5 Mg Tablet, 0.5 Mg Peg Tube Three Times A Day as needed for Anxiety Active 06/28/2018 [facility] Lorazepam 0.5 Mg Tablet, 0.5 Mg Oral Every 8 Hours for Anxiety Active 06/28/2018 [facility] Metoclopramide Hcl (Reglan) 5 Mg Tablet, 5 Mg Peg Tube Three Times A Day Active 06/28/2018 [facility] Metoclopramide Hcl 5 Mg/5 Ml Solution, 5 Mg Peg Tube Three Times A Day Active 06/28/2018 [facility] Simethicone 80 Mg Chew, 80 Mg Oral After Meals And At Bedtime as needed for Gas Active [place] 06/28/2018 [facility] Sitagliptin Phosphate (Januvia) 100 Mg Tablet, 50 Mg Oral Daily Active 06/28/2018 [facility] Vancomycin Hcl (Vancocin Hcl) 250 Mg Capsule, 250 Mg Oral Every 6 Hours Active [place] 06/28/2018 [facility] Cholestyramine (Cholestyramine Light Packet) 4 Gm Pack, 4 Gm Oral Twice A Day as needed for Diarrhea Active [place] 06/06/2018 [facility] Lactobac Cmb #3/Fos/Pantethine (Probiotic & Acidophilus Cap) 1 Each Capsule, 1 Cap Peg Tube Every 8 Hours Active 06/06/2018 [facility] Acetaminophen With Codeine (Tylenol With Codeine #3 Tablet) 1 Each Tablet, 300 Mg Oral Every 4 Hours as needed for Pain Active 04/17/2018 [facility] Allopurinol 100 Mg Tablet, 100 Mg Oral Daily Active 04/17/2018 [facility] Amitriptyline Hcl 25 Mg Tablet, 25 Mg Oral Bedtime Active 04/17/2018 [facility] Clonidine Hcl (Catapres) 0.1 Mg Tablet, 0.1 Mg Oral Every 8 Hours as needed for Sbp>160 Active [place] 04/15/2018 [facility] Mucomyst , 4 Ml Nebullizer Twice A Day as needed for Thick Secretions Active [place] 04/15/2018 [facility] Calcium Otc , 500 Mg Does Not Apply Active 04/13/2018 [facility] Dicyclomine Hcl 20 Mg Tablet, 20 Mg Oral Four Times Daily Active 04/13/2018 [facility] Famotidine (Pepcid) 20 Mg Tablet, 40 Mg Peg Tube Twice A Day Active 04/13/2018 [facility] Insulin Aspart (Novolog) 100 Units/1 Ml Inj, 0 Sub-Q Every 6 Hours Active [place] 04/13/2018 [facility] Novolog Ss , Active 04/13/2018 [facility] Potassium Chloride (K Dur*) 10 Meq Tabcr, 20 Meq Oral Daily Active [place] 04/13/2018 [facility] Balsam [place] Oil (Venelex Ointment) 60 Gm Oint...g., 60 Gm Topical Twice A Day Active [place] 03/26/2018 [facility] Dextrose (Dextrose 50%-Water Syringe) 50 Ml Inj, 50 Ml Intraven As Needed as needed for Blood Sugar Active [place] 03/26/2018 [facility] Levalbuterol Hcl (Xopenex) 1.25 Mg/3 Ml Vial.neb, 1.25 Mg Inhalation Rt Q6h Active [place] 03/26/2018 [facility] Lorazepam 2 Mg/1 Ml Vial, 1 Mg Intraven Every 6 Hours as needed for Agitation Active [place] 03/26/2018 [facility] Ascorbic Acid 500 Mg Tablet Twice A Day Active [place] 03/09/2018 [facility] Metoprolol Tartrate (Lopressor) 25 Mg Tab Every 12 Hours Active [place] 03/09/2018 [facility] Cholestyramine (Cholestyramine Light Packet) 4 Gm Pack, 4 Gm Oral Twice A Day as needed for Diarrhea Active [place] 03/09/2018 [facility] Ferrous Sulfate 325 Mg Tablet, 325 Mg Peg Tube Twice Daily With Meals Active [place] 03/09/2018 [facility] Metronidazole (Flagyl) 250 Mg Tablet, 500 Mg Peg Tube Every 8 Hours Active 03/09/2018 [facility] Vancomycin Hcl (Vancocin Hcl) 250 Mg Capsule, 250 Mg Oral Every 6 Hours Active [place] 03/09/2018 [facility] Ipratropium/Albuterol Sulfate (Combivent Respimat Inhal [place]) 4 Gm Aer.w.adap, 4 Gm Inhalation Every 6 Hours While Awake Active 02/24/2018 [facility] Metformin Hcl 500 Mg Tablet, 1000 Mg Oral Twice A Day Active 02/24/2018 [facility] Potassium Chloride 10 Meq Tab.er.prt, 10 Meq Oral Twice A Day Active 02/24/2018 [facility] Prednisone 20 Mg Tab, 20 Mg Oral Daily Active 02/24/2018 [facility] Acetaminophen 325 Mg Tablet Every 4 Hours as needed for Pain And Temperature Active [place] 01/20/2018 [facility] Balsam [place] Oil (Venelex Ointment) 60 Gm Oint...g. Daily Active [place] 01/20/2018 [facility] Ipratropium [place] 0.2 Mg/1 Ml Solution Rt Q6h Active [place] 01/20/2018 [facility] Levalbuterol Hcl (Xopenex) 0.63 Mg/3 Ml Vial.neb Rt Q6h as needed for Shorntess Of Breath Active [place] 01/20/2018 [facility] Simethicone 80 Mg Chew After Meals And At Bedtime as needed for Gas Active [place] 01/20/2018 [facility] Calcium Carbonate 500 Mg Tab, 500 Mg Oral Daily Active [place] 01/20/2018 [facility] Cholestyramine (Cholestyramine Light Packet) 4 Gm Pack, 4 Gm Oral Twice A Day as needed for Diarrhea Active [place] 01/20/2018 [facility] Guaifenesin (Mucinex) 600 Mg Tablet.er, 600 Mg Oral Every 6 Hours Active [place] 01/20/2018 [facility] Insulin Regular, Human (Humulin R) 100 Unit/1 Ml Vial, 0 Unit Sub-Q Every 6 Hours Active [place] 01/20/2018 [facility] Levalbuterol Hcl (Xopenex) 0.63 Mg/3 Ml Vial.neb, 0.63 Mg Inhalation Rt Q4h Active [place] 01/20/2018 [facility] Magnesium Oxide 400 Mg Tablet, 400 Mg Oral Twice A Day Active [place] 01/20/2018 [facility] Metoprolol Succinate (Toprol Xl) 25 Mg Tab.er.24h, 12.5 Mg Oral Daily Active [place] 01/20/2018 [facility] Neomy Sulf/Bacitrac Zn/Poly (Triple Antibiotic Ointment) 28 Gm Oint...g., 0 Gm Topically Three Times A Day Active [place] 01/20/2018 [facility] Pantoprazole Sod (Protonix) 40 Mg/Ml Susp, 40 Mg Oral Daily Active [place] 01/20/2018 [facility] Saline 0.65% [place] Soln 1 [place] Soln, 0 [place] Nasal Every 4 Hours While Awake Active [place] 01/20/2018 [facility] Allergies, Adverse Reactions, Alerts Substance Category Reaction Severity Reaction type Status Date Reported Comments Source Penicillin Unknown Allergy to Substance Active 06/21/2018 [facility] Titanium Unknown Allergy to Substance Active 06/21/2018 [facility] Heparin Unknown Allergy to Substance Active 06/21/2018 [facility] Immunizations Immunization Date Given Site Status Last Updated Comments Source Results Order Name Results Value Reference Range Date Interpretation Comments Source Capillary blood glucose measurement by glucometer (mass/volume) 104 70 - 120 08/16/2018 [facility] Blood leukocytes automated count (number/volume) 6.60 4.8 - 10.8 08/15/2018 [facility] Blood erythrocytes automated count (number/volume) 3.38 3.6 - 5.1 08/15/2018 [facility] Blood hemoglobin measurement (moles/volume) 9.6 12.0 - 16.0 08/15/2018 [facility] Automated blood hematocrit (volume fraction) 29.9 34.2 - 44.1 08/15/2018 [facility] Automated erythrocyte mean corpuscular volume 88.5 81 - 99 08/15/2018 [facility] Automated erythrocyte mean corpuscular hemoglobin (mass per erythrocyte) 28.4 28 - 32 08/15/2018 [facility] Automated erythrocyte mean corpuscular hemoglobin concentration measurement (mass/volume) 32.1 31 - 35 08/15/2018 [facility] RDW BldCo-Rto 16.4 11.7 - 14.4 08/15/2018 [facility] Automated blood platelet count (count/volume) 55 140 - 360 08/15/2018 [facility] Automated blood segmented neutrophil count as percentage of total leukocytes 65.8 38.7 - 80.0 08/15/2018 [facility] Automated blood lymphocyte count as percentage ot total leukocytes 22.4 18.0 - 39.1 08/15/2018 [facility] Automated blood monocyte count as percentage of total leukocytes 7.7 4.4 - 11.3 08/15/2018 [facility] Automated blood eosinophil count as percentage of total leukocytes 2.9 0.0 - 6.0 08/15/2018 [facility] Automated blood basophil count as percentage of total leukocytes 0.3 0.0 - 1.0 08/15/2018 [facility] IM GRANULOCYTES % 0.9 0.0 - 1.0 08/15/2018 [facility] Automated blood neutrophil count 4.3 2.1 - 6.9 08/15/2018 [facility] Blood lymphocytes count (number/volume) 1.5 1.0 - 3.2 08/15/2018 [facility] Blood monocytes automated count (number/volume) 0.5 0.2 - 0.8 08/15/2018 [facility] Automated blood eosinophil count 0.2 0.0 - 0.4 08/15/2018 [facility] Automated blood basophil count (count/volume) 0.0 0.0 - 0.1 08/15/2018 [facility] Absolute Immature Granulocyte (auto 0.06 0 - 0.1 08/15/2018 [facility] Serum or plasma sodium measurement (moles/volume) 136 136 - 145 08/15/2018 [facility] Serum or plasma potassium measurement (moles/volume) 3.9 3.5 - 5.1 08/15/2018 [facility] Serum or plasma chloride measurement (moles/volume) 100 98 - 107 08/15/2018 [facility] Serum or plasma carbon dioxide, total measurement (moles/volume) 28 22 - 29 08/15/2018 [facility] Serum or plasma anion gap 11.9 8 - 16 08/15/2018 [facility] Serum or plasma urea nitrogen measurement (mass/volume) 11 7 - 26 08/15/2018 [facility] Serum or plasma creatinine measurement (mass/volume) 0.59 0.57 - 1.11 08/15/2018 [facility] Serum or plasma urea nitrogen/creatinine mass ratio 19 6 - 25 08/15/2018 [facility] Estimated glomerular filtration rate (GFR) determination > 60 60 08/15/2018 [facility] Glucose measurement 105 74 - 118 08/15/2018 [facility] Serum or plasma calcium measurement (mass/volume) 9.1 8.4 - 10.2 08/15/2018 [facility] Serum or plasma magnesium measurement (mass/volume) 1.4 1.3 - 2.1 08/15/2018 [facility] BNP Bld-mCnc 92.3 0 - 100 08/15/2018 [facility] Stool gastrointestinal hemoglobin detection NEGATIVE NEGATIVE 08/14/2018 [facility] Clostridium difficile A and B toxin assay NEGATIVE NEGATIVE 08/14/2018 [facility] Serum or plasma iron measurement (mass/volume) 60 50 - 170 08/14/2018 [facility] Serum or plasma iron binding capacity measurement (mass/volume) 140 261 - 478 08/14/2018 [facility] Serum or plasma iron saturation measurement (mass fraction) 43 15 - 50 08/14/2018 [facility] Serum or plasma transferrin measurement (mass/volume) 100 180 - 382 08/14/2018 [facility] Serum or plasma ferritin measurement (mass/volume) 138.64 4.63 - 204.00 08/14/2018 [facility] Blood cobalamin (vitamin B12) measurement (mass/volume) 740 213 - 816 08/14/2018 [facility] Serum or plasma folate measurement (mass/volume) 5.7 7.0 - 15.4 08/14/2018 [facility] Differential Total Cells Counted 100 08/13/2018 [facility] Manual blood neutrophils/100 leukocytes 64 40 - 74 08/13/2018 [facility] Manual blood lymphocytes/100 leukocytes 28 19 - 48 08/13/2018 [facility] Manual blood monocytes/100 leukocytes 8 3.4 - 9.0 08/13/2018 [facility] Blood platelets count by estimate (number/volume) MARKEDLY DECREASED 08/13/2018 [facility] Platelet morphology NORMAL 08/13/2018 [facility] RBC morphology NORMAL 08/13/2018 [facility] Erythrocyte sedimentation rate by Westergren method 29 0 - 20 08/13/2018 [facility] Automated reticulocyte count as percentage of total erythrocytes 1.5 0.8 - 2.2 08/13/2018 [facility] Serum or plasma total bilirubin measurement (mass/volume) 0.3 0.2 - 1.2 08/13/2018 [facility] Serum or plasma conjugated bilirubin measurement (mass/volume) 0.2 0.0 - 0.5 08/13/2018 [facility] Aspartate Amino Transf (AST/SGOT) 12 5 - 34 08/13/2018 [facility] Serum or plasma alanine aminotransferase measurement (enzymatic activity/volume) 6 0 - 55 08/13/2018 [facility] Serum or plasma protein measurement (mass/volume) 5.1 6.5 - 8.1 08/13/2018 [facility] Serum or plasma albumin measurement (mass/volume) 2.3 3.5 - 5.0 08/13/2018 [facility] Plasma globulin measurement (mass/volume) 2.9 2.3 - 3.5 08/13/2018 [facility] Serum or plasma albumin/globulin mass ratio 0.8 0.8 - 2.0 08/13/2018 [facility] Serum or plasma alkaline phosphatase measurement (enzymatic activity/volume) 68 40 - 150 08/13/2018 [facility] Serum or plasma creatine kinase measurement (enzymatic activity/volume) 15 29 - 168 08/13/2018 [facility] Serum or plasma creatine kinase MB measurement (mass/volume) 0.50 0 - 5.0 08/13/2018 [facility] Troponin I measurement by highly sensitive enzyme immunoassay 0.013 0 - 0.300 08/13/2018 [facility] Bacteria identification in sputum by respiratory culture Organism: PSEUDOMONAS AERUGINOSA 08/12/2018 [facility] Blood culture NO GROWTH AFTER 72 HOURS 08/12/2018 [facility] Lactic Acid Level 9.3 4.5 - 19.8 07/30/2018 [facility] Urine color determination YELLOW YELLOW 07/30/2018 [facility] Urine clarity TURBID CLEAR 07/30/2018 [facility] Specific gravity of Urine by Test strip 1.030 1.010 - 1.025 07/30/2018 [facility] Urine pH measurement by automated test strip 6 5 - 7 07/30/2018 [facility] Urine leukocyte esterase detection by dipstick 2+ NEGATIVE 07/30/2018 [facility] Urine nitrite detection POSITIVE NEGATIVE 07/30/2018 [facility] Urine protein measurement by test strip (mass/volume) 1+ NEGATIVE 07/30/2018 [facility] Urine glucose detection NEGATIVE NEGATIVE 07/30/2018 [facility] Urine ketones detection by automated test strip TRACE NEGATIVE 07/30/2018 [facility] Urine urobilinogen measurement by test strip (mass/volume) 0.2 0.2 - 1 07/30/2018 [facility] Urine total bilirubin measurement (mass/volume) NEGATIVE NEGATIVE 07/30/2018 [facility] Urine erythrocytes detection TRACE NEGATIVE 07/30/2018 [facility] Automated urine sediment leukocyte count by microscopy (number/high power field) >50 0 - 5 07/30/2018 [facility] Erythrocytes detection in urine sediment by light microscopy 6-10 0 - 5 07/30/2018 [facility] Bacteria detection in urine sediment by light microscopy MANY NONE 07/30/2018 [facility] Epithelial cells detection in urine sediment by light microscopy MODERATE NONE 07/30/2018 [facility] Influenza virus A and B antigen identification by immunofluorescence NEGATIVE NEGATIVE 07/30/2018 [facility] Manual blood eosinophil count as percentage of total leukocytes 1 0 - 7 06/28/2018 [facility] Serum or plasma uric acid measurement (mass/volume) 6.0 2.5 - 7.0 06/28/2018 [facility] Blood hypochromia detection by light microscopy SLIGHT 06/27/2018 [facility] Blood anisocytosis detection by light microscopy SLIGHT 06/27/2018 [facility] Blood microcytes detection by light microscopy SLIGHT 06/27/2018 [facility] Stool calprotectin measurement (mass/mass) 1960 0 - 120 06/25/2018 [facility] Serum or plasma thyroxine (T4) free measurement (mass/volume) 0.98 0.9 - 1.8 06/24/2018 [facility] Serum or plasma thyrotropin measurement by detection limit <=0.005 miu/l (units/volume) 5.255 0.350 - 4.940 06/24/2018 [facility] Blood polychromasia detection by light microscopy R 06/23/2018 [facility] Blood poikilocytosis detection by light microscopy SLIGHT 06/23/2018 [facility] Serum or plasma prealbumin measurement (mass/volume) 18 10 - 36 06/22/2018 [facility] Amorphous sediment detection in urine sediment by light microscopy MODERATE FEW 06/21/2018 [facility] Serum or plasma amylase measurement (enzymatic activity/volume) 19 25 - 125 06/21/2018 [facility] Serum or plasma lipase measurement (enzymatic activity/volume) 15 8 - 78 06/21/2018 [facility] Manual blood band neutrophils form/100 leukocytes 1 06/06/2018 [facility] Manual basophil percentage 1 0 - 1.5 06/06/2018 [facility] Manual blood myelocytes/100 leukocytes 2 0 - 0 06/06/2018 [facility] Blood toxic granules detection by light microscopy SLIGHT 06/06/2018 [facility] Blood lymphocytes variant count (number/volume) 4 06/02/2018 [facility] Bacterial blood culture Organism: STAPHYLOCOCCUS SP COAG NEG 06/01/2018 [facility] Prothrombin time (PT) in platelet poor plasma by coagulation assay 13.3 11.9 - 14.5 05/14/2018 [facility] INR in Platelet poor plasma by Coagulation assay 1.09 05/14/2018 [facility] Activated partial thromboplastin time (aPTT) in platelet poor plasma bycoagulation assay 27.3 23.8 - 35.5 05/14/2018 [facility] Blood platelet clump detection by light microscopy NONE NONE 04/11/2018 [facility] Manual blood metamyelocytes/100 leukocytes 1 0 - 0 03/07/2018 [facility] Arterial blood pH measurement 7.42 7.31 - 7.41 03/04/2018 [facility] pCO2 BldA 44 41 - 51 03/04/2018 [facility] pCO2 BldA 69 80 - 105 03/04/2018 [facility] Arterial blood bicarbonate measurement (moles/volume) 29 23 - 28 03/04/2018 [facility] Arterial blood base excess by calculation 4.0 -2 - 3 - 2 03/04/2018 [facility] Arterial blood oxygen saturation measurement 94.0 95 - 98 03/04/2018 [facility] FiO2 40 03/04/2018 [facility] Serum or plasma triglyceride measurement (mass/volume) 124 0 - 149 02/27/2018 [facility] Serum or plasma cholesterol measurement (mass/volume) 119 0 - 199 02/27/2018 [facility] Serum or plasma cholesterol in LDL measurement (mass/volume) 44 60 - 130 02/27/2018 [facility] Serum or plasma cholesterol in HDL measurement (mass/volume) 50 40 - 60 02/27/2018 [facility] Serum or plasma total cholesterol/cholesterol in HDL mass ratio 2.4 3.0 - 3.6 02/27/2018 [facility] Bacteria identification in sputum by respiratory culture Organism: PSEUDOMONAS AERUGINOSA 02/26/2018 [facility] Phosphorus measurement 3.5 2.3 - 4.7 02/26/2018 [facility] Serum or plasma 25-hydroxyvitamin D measurement (mass/volume) 23 . 02/26/2018 [facility] Serum or plasma 25-hydroxycalciferol measurement (mass/volume) 22 . 02/26/2018 [facility] Serum or plasma calcidiol measurement (mass/volume) <1.0 . 02/26/2018 [facility] Giant platelet detection RARE 02/25/2018 [facility] Hemoglobin A1c Percent 5.6 4.0 - 7.0 02/25/2018 [facility] Mixed venous blood pH measurement 7.447 7.32 - 7.42 02/10/2018 [facility] Mixed venous blood partial pressure of carbon dioxide measurement at point of care 43.8 40 - 50 02/10/2018 [facility] Mixed venous blood partial pressure of carbon dioxide measurement 37 38 - 42 02/10/2018 [facility] Bicarbonate measurement in mixed venous blood (moles/volume) 30.2 22 - 26 02/10/2018 [facility] Base excess in Mixed venous blood by calculation 6 -5-3 - 5 02/10/2018 [facility] Mixed venous blood oxygen (O2) saturation measurement 72 70 - 75 02/10/2018 [facility] Blood hypersegmented neutrophils detection by light microscopy FEW 01/20/2018 [facility] Blood smudge cells detection by light microscopy FEW 01/16/2018 [facility] Blood stomatocytes detection by light microscopy SLIGHT 01/09/2018 [facility] Blood [place] bodies detection by light microscopy FEW 01/09/2018 [facility] Elliptocyte detection SLIGHT 01/09/2018 [facility] Blood nucleated erythrocytes count (number/volume) 4 01/06/2018 [facility] Blood target cells detection by light microscopy FEW 01/06/2018 [facility] Fibrin D-dimer DDU measurement in platelet poor plasma (mass/volume) 3.57 0.00 - 0.45 01/06/2018 [facility] Bacterial urine culture Urine Culture [facility] Vital Signs Vital Sign Value Date Comments Source Encounters Location Location Details Encounter Type Encounter Number Reason For Visit Attending Provider ADM Date DC Date Status Source Registered Referred [id number] ILAN SALCEDO MD 10/25/2017 [facility] Discharged Inpatient [id number] ILAN SALCEDO MD 01/06/2018 01/20/2018 [facility] Departed Emergency Room [id number] NATHANIEL SANTACRUZ DO 02/10/2018 02/11/2018 [facility] Discharged Inpatient [id number] ILAN SALCEDO MD 02/26/2018 03/09/2018 [facility] Discharged Inpatient [id number] ILAN SALCEDO MD 03/25/2018 03/26/2018 [facility] Departed Emergency Room [id number] JENN MILLER MD 04/07/2018 04/07/2018 [facility] Discharged Inpatient [id number] ILAN SALCEDO MD 04/14/2018 04/17/2018 [facility] Departed Emergency Room [id number] JENN MILLER MD 05/14/2018 05/14/2018 [facility] Discharged Inpatient [id number] ILAN SALCEDO MD 06/01/2018 06/06/2018 [facility] Discharged Inpatient [id number] ILAN SALCEDO MD 06/21/2018 06/28/2018 [facility] Discharged Inpatient [id number] ILAN SALCEDO MD 07/31/2018 08/04/2018 [facility] Discharged Inpatient [id number] ILAN SALCEDO MD 08/12/2018 08/16/2018 [facility] Procedures Procedure Code Date Perfomer Comments Source US abdomen complete [id number] 08/13/2018 [facility] Esophagogastroduodenoscopy (EGD) with placement of percutaneous endoscopic gastrostomy (PEG) [id number] 08/01/2018 [facility] Computed tomography of abdomen and pelvis with contrast [id number] 06/21/2018 [facility] CHANGE FEEDING DEVICE IN UP INTEST TRACT, MACHINIST APPRENTICE WOOD APPROACH [id number] 06/05/2018 [facility] Computed tomography of brain without radiopaque contrast [id number] 06/03/2018 [facility] CHANGE TRACHEOSTOMY DEVICE IN TRACHEA, EXTERNAL APPROACH [id number] 04/11/2018 [facility] REVISION OF TRACHEOSTOMY DEVICE IN TRACHEA, MACHINIST APPRENTICE WOOD APPROACH [id number] 03/26/2018 [facility] DILATION OF TRACHEA, ENDO [id number] 03/03/2018 [facility] CHANGE TRACHEOSTOMY DEVICE IN TRACHEA, EXTERNAL APPROACH [id number] 03/03/2018 [facility] DRAINAGE OF L PLEURAL CAV WITH DRAIN DEV, PERC APPROACH [id number] 03/03/2018 [facility] Computed tomography of soft tissues of neck without contrast [id number] 03/01/2018 [facility] RESPIRATORY VENTILATION, LESS THAN 24 CONSECUTIVE HOURS [id number] 02/27/2018 [facility] Computed tomography of chest with contrast [id number] 02/25/2018 [facility] BYPASS TRACHEA TO CUTANEOUS WITH TRACH DEV, OPEN APPROACH [id number] 01/13/2018 [facility] INSPECTION OF LARYNX, ENDO [id number] 01/13/2018 [facility] INSERTION OF INFUSION DEV INTO SUP VENA CAVA, PERC APPROACH [id number] 01/13/2018 [facility] RESPIRATORY VENTILATION, 24-96 CONSECUTIVE HOURS [id number] 01/11/2018 [facility] INSERTION OF ENDOTRACHEAL AIRWAY INTO TRACHEA, VIA OPENING [id number] 01/11/2018 [facility] INSPECTION OF TRACHEOBRONCHIAL TREE, ENDO [id number] [facility] with [id number]
--- NOTE | 2018-11-16 12:48 | NUR ---
DR OCONNOR AT BEDSIDE FOR PATIENT EVAL.
--- NOTE | 2018-11-16 13:00 | NUR ---
RESPIRATORY AT BEDSIDE FOR HUMIFIED O2 PER TRACH COLLAR. NO SIGNS OF RESP DISTRESS NOTED AT THIS TIME.
--- NOTE | 2018-11-16 13:38 | NUR ---
PATIENT AWAKE AND ALERT SITTING IN BED QUIETLY. RESP EVEN AND UNLABORED. SKIN WARM AND DRY. NO SIGNS OF ACUTE DISTESS NOTED AT THIS TIME. DENIES ANY C/O AT THIS TIME.
--- NOTE | 2018-11-16 13:41 | NUR ---
XRAY AT BEDSIDE FOR CXR.
--- NOTE | 2018-11-16 14:38 | Diagnostic Imaging Report ---
EXAMINATION: CHEST SINGLE (PORTABLE) INDICATION: Cough. COMPARISON: Chest radiograph 08/12/2018. FINDINGS: TUBES and LINES: Stable tracheostomy tube. LUNGS: Lungs are well inflated. There is no evidence of pneumonia or pulmonary edema. PLEURA: No pleural effusion or pneumothorax. HEART AND MEDIASTINUM: The cardiomediastinal silhouette is unremarkable. BONES AND SOFT TISSUES: No acute osseous lesion. Extensive glenohumeral degenerative changes. UPPER ABDOMEN: No free air under the diaphragm. IMPRESSION: No acute radiographic abnormality. Signed by: Dr. Shamir Adams MD on 11/16/2018 2:35 PM
--- NOTE | 2018-11-16 14:50 | NUR ---
PATIENT ANXIOUS AND CRYING. C/O SOB, TRACH SUCTIONED, TOLERATED WELL. RESPIRATORY AT BEDSIDE FOR PATIENT YASMEEN. NOTIFIED DR ANASTASIA MIJARES ANXIOUS AND C/O SOB. NO SIGNS OF RESP DISTRESS NOTED AT THIS TIME.
[2018-11-16] MEDS ORDERED: LORAZEPAM INJ 2 MG/ML VIAL ONE (16:40)
[2018-11-16] MEDS ORDERED: LORAZEPAM INJ 2 MG/ML VIAL IV ONE (16:45)
--- NOTE | 2018-11-16 17:22 | NUR ---
EDUCATED PATIENT AND FAMILY ON THE CURRENT PLAN OF CARE, AWAITING DR PHELPS FOR BEDSIDE TRACH CHANGE,VERBALIZED UNDERSTANDING. PATIENT ANXIOUS AND CRYING,POSITIVE REASSURANCE GIVEN,EASILY CONSOLED. RESP EVEN AND UNLABORED. SKIN WARM AND DRY. NO SIGNS OF ACUTE DISTRESS NOTED AT THIS TIME.
--- NOTE | 2018-11-16 17:35 | NUR ---
NOTIFIED DR OCONNOR BP 88/52, 500ML NS BOLUS ORDERED AT THIS TIME.
[2018-11-16] MEDS ORDERED: SODIUM CHLORIDE 0.9% 500ML 500 ML ONE (17:39)
[2018-11-16] MEDS ORDERED: SODIUM CHLORIDE 0.9% 500ML 500 ML IV ONE (17:40)
--- NOTE | 2018-11-16 18:08 | NUR ---
DR PHELPS AT BEDSIDE FOR TRACH CHANGE.
--- NOTE | 2018-11-16 19:15 | NUR ---
VERBAL REPORT GIVEN TO MARIA M CALLES.
--- NOTE | 2018-11-16 21:32 | NUR ---
REPORT GIVEN TO [facility]. PT AWAKE ALERT SKIN W/D RESP NONLAB. NAD NOTED.
--- NOTE | 2018-11-17 03:51 | Consultation ---
DATE OF CONSULTATION: 11/16/2018 Hospital Consultation HISTORY OF PRESENT ILLNESS: I was kindly asked to see this 68-year-old woman, well-known to me from previous inpatient evaluation and treatment. 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 She was treated with tracheal dilation and tracheostomy tube, stenting of the distal stenosis, and subsequently referred to another physician for more definitive evaluation and treatment. The patient reports approximately 2 weeks ago she had scarring in the distal trachea resected and her tracheostomy tube was downsized to a #6 Shiley tracheostomy tube. She did well for approximately 2 weeks and presented to the emergency department as she was unable to breathe. Her chest x-ray was unremarkable. She was observed and had no oxygen desaturation. It was unclear as to why she was having symptoms of difficulty breathing. PAST MEDICAL HISTORY AND PAST SURGICAL HISTORY: Reviewed in detail in the chart. PHYSICAL EXAMINATION: On examination, the patient is anxious, but is moving air easily. On fiberoptic laryngoscopy, she has bilateral vocal cord paralysis with marginal airway. On bronchoscopy through the tracheostomy tube, the previous tracheal stenosis has resolved. Tracheostomy tube was changed. The patient was still excessively anxious, but she was reassured that her airway was adequate. ASSESSMENT: 1. 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 2. History of distal tracheal stenosis, which has resolved with tracheal stenting and scar resection by another physician. 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 MD CECILIO Vasques/AZULL /[id number]
== END 2018-11-16 21:40 | disposition home or self-care (01) ==
LOC: ER 12:34
DX: R06.00 Dyspnea, unspecified (principal); R05 Cough; J96.12 Chronic respiratory failure with hypercapnia; Z87.891 Personal history of nicotine dependence
CPT/HCPCS: 71045; 99284; J2060; J7040

== ENCOUNTER 2019-05-07 00:22 | Inpatient (IN) | payer MEDICARE, OTHER ==
[2019-05-07] VITALS (8 sets, daily range): BP systolic 107–129; BP diastolic 61–71
[~2019-05-07] VITALS: Ht 172.7 cm; Wt 72.6 kg
--- OUTSIDE RECORDS SUMMARY | 2019-05-07 00:25 | XMS REPORT | Continuity of Care Document ---
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 Active Problem 08/17/2018 [facility] Leukocytosis Active Problem 08/17/2018 [facility] Thrombocytopenia Active Problem 08/17/2018 [facility] 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 [facility] Tracheostomy complication Active Problem 08/17/2018 [facility] Malfunction of tracheostomy Active Problem 08/17/2018 [facility] Urinary tract infection Active Problem 08/17/2018 [facility] Medications Medication Details Route Status Patient Instructions Ordering Provider Order Date Source Folic Acid 1 Mg Tablet Daily Active [place] 08/14/2018 [facility] Acetaminophen With Codeine (Tylenol With Codeine #3 Tablet) 1 Each Tablet Every 6 Hours for Pain Active [place] 08/04/2018 [facility] Loperamide Hcl (Imodium*) 2 Mg Cap Three Times A Day as needed for Diarrhea Active [place] 08/04/2018 [facility] Vancomycin Hcl (Vancocin Hcl) 250 Mg Capsule Every 6 Hours Active [place] 08/04/2018 [facility] Allopurinol 300 Mg Tablet Daily Active [place] 06/28/2018 [facility] Amitriptyline Hcl 25 Mg Tablet Bedtime Active [place] 06/28/2018 [facility] Clonidine Hcl (Catapres) 0.1 Mg Tablet Every 8 Hours as needed for Sbp>160 Active [place] 06/28/2018 [facility] Furosemide (Lasix) 40 Mg Tablet Daily Active [place] 06/28/2018 [facility] Insulin Aspart (Novolog) 100 Units/1 Ml Inj Every 6 Hours Active SLIDING SCALE: 150-200 3 UNITS 201-250 6 UNITS 251-300 9 UNITS 301-350+ 12 UNITS [place] 06/28/2018 [facility] Lactobacillus Acidophilus (Acidophilus) 1 Each Tab.chew Twice A Day Active [place] 06/28/2018 [facility] Levothyroxine Sodium (Synthroid) 75 Mcg Tab Daily@06 Active [place] 06/28/2018 [facility] Lorazepam 0.5 Mg Tablet Three Times A Day as needed for Anxiety Active [place] 06/28/2018 [facility] Metoclopramide Hcl (Reglan) 5 Mg Tablet Three Times A Day Active [place] 06/28/2018 [facility] Mucomyst Twice A Day as needed for Thick Secretions Active 10% MIX WITH ALBUTEROL [place] 06/28/2018 [facility] Potassium Chloride (K Dur*) 10 Meq Tabcr Daily Active [place] 06/28/2018 [facility] Sitagliptin Phosphate (Januvia) 100 Mg Tablet Daily Active [place] 06/28/2018 [facility] Acetaminophen With Codeine (Tylenol With Codeine #3 Tablet) 1 Each Tablet, 300 Mg Oral Every 6 Hours for Pain Active [place] 06/28/2018 [facility] Allopurinol 300 Mg [...] A Day as needed for Diarrhea Active [place] 06/28/2018 [facility] Furosemide (Lasix) 40 [...] A Day as needed for Diarrhea Active [place] 06/28/2018 [facility] Lorazepam 0.5 Mg [...] At Bedtime as needed for Gas Active [place] 06/28/2018 [facility] Sitagliptin Phosphate (Januvia) 100 Mg Tablet, 50 Mg Oral Daily Active 06/28/2018 [facility] Vancomycin Hcl (Vancocin Hcl) 250 Mg Capsule, 250 Mg Oral Every 6 Hours Active [place] 06/28/2018 [facility] Cholestyramine (Cholestyramine Light Packet) 4 Gm Pack, 4 Gm Oral Twice A Day as needed for Diarrhea Active [place] 06/06/2018 [facility] Lactobac Cmb #3/Fos/Pantethine [...] 8 Hours as needed for Sbp>160 Active [place] 04/15/2018 [facility] Mucomyst , 4 Ml Nebullizer Twice A Day as needed for Thick Secretions Active [place] 04/15/2018 [facility] Calcium Otc , 500 Mg Does Not Apply Active 04/13/2018 [facility] Dicyclomine Hcl 20 Mg Tablet, 20 Mg Oral Four Times Daily Active 04/13/2018 [facility] Famotidine (Pepcid) 20 Mg Tablet, 40 Mg Peg Tube Twice A Day Active 04/13/2018 [facility] Insulin Aspart (Novolog) 100 Units/1 Ml Inj, 0 Sub-Q Every 6 Hours Active [place] 04/13/2018 [facility] Novolog Ss , Active 04/13/2018 [facility] Potassium Chloride (K Dur*) 10 Meq Tabcr, 20 Meq Oral Daily Active [place] 04/13/2018 [facility] Balsam [place] Oil (Venelex Ointment) 60 Gm Oint...g., 60 Gm Topical Twice A Day Active [place] 03/26/2018 [facility] Dextrose (Dextrose 50%-Water Syringe) 50 Ml Inj, 50 Ml Intraven As Needed as needed for Blood Sugar Active [place] 03/26/2018 [facility] Levalbuterol Hcl (Xopenex) 1.25 Mg/3 Ml Vial.neb, 1.25 Mg Inhalation Rt Q6h Active [place] 03/26/2018 [facility] Lorazepam 2 Mg/1 Ml Vial, 1 Mg Intraven Every 6 Hours as needed for Agitation Active [place] 03/26/2018 [facility] Ascorbic Acid 500 Mg Tablet Twice A Day Active [place] 03/09/2018 [facility] Metoprolol Tartrate (Lopressor) 25 Mg Tab Every 12 Hours Active [place] 03/09/2018 [facility] Cholestyramine (Cholestyramine Light Packet) 4 Gm Pack, 4 Gm Oral Twice A Day as needed for Diarrhea Active [place] 03/09/2018 [facility] Ferrous Sulfate 325 Mg Tablet, 325 Mg Peg Tube Twice Daily With Meals Active [place] 03/09/2018 [facility] Metronidazole (Flagyl) 250 Mg Tablet, 500 Mg Peg Tube Every 8 Hours Active 03/09/2018 [facility] Vancomycin Hcl (Vancocin Hcl) 250 Mg Capsule, 250 Mg Oral Every 6 Hours Active [place] 03/09/2018 [facility] Ipratropium/Albuterol Sulfate (Combivent Respimat Inhal [place]) 4 Gm Aer.w.adap, 4 Gm Inhalation Every [...] as needed for Pain And Temperature Active [place] 01/20/2018 [facility] Balsam [place] Oil (Venelex Ointment) 60 Gm Oint...g. Daily Active [place] 01/20/2018 [facility] Ipratropium [place] 0.2 Mg/1 Ml Solution Rt Q6h Active [place] 01/20/2018 [facility] Levalbuterol Hcl (Xopenex) 0.63 Mg/3 Ml Vial.neb Rt Q6h as needed for Shorntess Of Breath Active [place] 01/20/2018 [facility] Simethicone 80 Mg Chew After Meals And At Bedtime as needed for Gas Active [place] 01/20/2018 [facility] Calcium Carbonate 500 Mg Tab, 500 Mg Oral Daily Active [place] 01/20/2018 [facility] Cholestyramine (Cholestyramine Light Packet) 4 Gm Pack, 4 Gm Oral Twice A Day as needed for Diarrhea Active [place] 01/20/2018 [facility] Guaifenesin (Mucinex) 600 Mg Tablet.er, 600 Mg Oral Every 6 Hours Active [place] 01/20/2018 [facility] Insulin Regular, Human (Humulin R) 100 Unit/1 Ml Vial, 0 Unit Sub-Q Every 6 Hours Active [place] 01/20/2018 [facility] Levalbuterol Hcl (Xopenex) 0.63 Mg/3 Ml Vial.neb, 0.63 Mg Inhalation Rt Q4h Active [place] 01/20/2018 [facility] Magnesium Oxide 400 Mg Tablet, 400 Mg Oral Twice A Day Active [place] 01/20/2018 [facility] Metoprolol Succinate (Toprol Xl) 25 Mg Tab.er.24h, 12.5 Mg Oral Daily Active [place] 01/20/2018 [facility] Neomy Sulf/Bacitrac Zn/Poly (Triple Antibiotic Ointment) 28 Gm Oint...g., 0 Gm Topically Three Times A Day Active [place] 01/20/2018 [facility] Pantoprazole Sod (Protonix) 40 Mg/Ml Susp, 40 Mg Oral Daily Active [place] 01/20/2018 [facility] Saline 0.65% Gregorio Soln 1 [place] Soln, 0 [place] Nasal Every 4 Hours While Awake Active [place] 01/20/2018 [facility] Allergies, Adverse Reactions, Alerts Substance Category Reaction Severity Reaction type Status Date Reported Comments Source Penicillin Unknown Allergy to Substance Active 06/21/2018 [facility] Titanium Unknown Allergy to Substance Active 06/21/2018 [facility] Heparin Unknown Allergy to Substance Active 06/21/2018 [facility] Immunizations No Data Provided for This Section Results Order Name Results Value Reference Range [...] microscopy SLIGHT 01/09/2018 [facility] Blood [place] bodies detection by light microscopy FEW 01/09/2018 [...] urine culture Urine Culture [facility] Pathology Reports No Data Provided for This Section Diagnostic Reports No Data Provided for This Section Consultation Notes No Data Provided for This Section Discharge Summaries No Data Provided for This Section History and Physicals No Data Provided for This Section Vital Signs No Data Provided for This Section Encounters Location Location Details Encounter Type Encounter Number Reason For Visit Attending Provider ADM Date DC Date Status Source Registered Referred [id number] ILAN SALCEDO MD 10/25/2017 [facility] Discharged Inpatient [id number] ILAN SALCEDO MD 01/06/2018 01/20/2018 [facility] Departed Emergency Room [id number] NATHANIEL SANTACRUZ DO 02/10/2018 02/11/2018 [facility] Discharged Inpatient [id number] ILAN SALCEDO MD 02/26/2018 03/09/2018 [facility] Discharged Inpatient [id number] ILAN SALCEDO MD 03/25/2018 03/26/2018 [facility] Departed Emergency Room [id number] JENN MILLER MD 04/07/2018 04/07/2018 [facility] Discharged Inpatient [id number] ILAN SALCEDO MD 04/14/2018 04/17/2018 [facility] Departed Emergency Room [id number] JENN MILLER MD 05/14/2018 05/14/2018 [facility] Discharged Inpatient [id number] ILAN SALCEDO MD 06/01/2018 06/06/2018 [facility] Discharged Inpatient [id number] ILAN SALCEDO MD 06/21/2018 06/28/2018 [facility] Discharged Inpatient [id number] ILAN SALCEDO MD 07/31/2018 08/04/2018 [facility] Discharged Inpatient [id number] ILAN SALCEDO MD 08/12/2018 08/16/2018 [facility] Procedures Procedure Code Date Perfomer Comments Source US abdomen complete [id number] 08/13/2018 [facility] Esophagogastroduodenoscopy (EGD) with placement of percutaneous endoscopic gastrostomy (PEG) [id number] 08/01/2018 [facility] Computed tomography of abdomen and pelvis with contrast [id number] 06/21/2018 [facility] CHANGE FEEDING DEVICE IN UP INTEST TRACT, FINANCIAL SERVICES SPECIALIST APPROACH [id number] 06/05/2018 [facility] Computed tomography of brain without radiopaque contrast [id number] 06/03/2018 [facility] REVISION OF TRACHEOSTOMY DEVICE IN TRACHEA, FINANCIAL SERVICES SPECIALIST APPROACH [id number] 03/26/2018 [facility] DILATION OF TRACHEA, ENDO [id number] 03/03/2018 [facility] CHANGE TRACHEOSTOMY DEVICE IN TRACHEA, EXTERNAL APPROACH [id number] 03/03/2018 [facility] DRAINAGE OF L PLEURAL CAV WITH DRAIN DEV, PERC APPROACH [id number] 03/03/2018 [facility] Computed tomography of soft tissues of neck without contrast [id number] 03/01/2018 [facility] RESPIRATORY VENTILATION, LESS THAN 24 CONSECUTIVE HOURS [id number] 02/27/2018 [facility] BYPASS TRACHEA TO CUTANEOUS WITH TRACH DEV, OPEN APPROACH [id number] 01/13/2018 [facility] INSPECTION OF LARYNX, ENDO [id number] 01/13/2018 [facility] INSERTION OF INFUSION DEV INTO SUP VENA CAVA, PERC APPROACH [id number] 01/13/2018 [facility] RESPIRATORY VENTILATION, 24-96 CONSECUTIVE HOURS [id number] 01/11/2018 [facility] INSERTION OF ENDOTRACHEAL AIRWAY INTO TRACHEA, VIA OPENING [id number] 01/11/2018 [facility] INSPECTION OF TRACHEOBRONCHIAL TREE, ENDO [id number] 01/11/2018 [facility] Computed tomography of chest with contrast [id number] 01/06/2018 [facility] Assessment and Plan No Data Provided for This Section Plan of Care Plan of Care Date Source Discharge Date 08/16/18 6:50pm Disposition HOME HEALTH SERVICE Prescriptions See Medication Section Additional Instructions/Education f/u with PCP in 1-2 weeks f/u with Dr Kerns as discussed 08/16/2018 [facility] Social History Social History Date Source Social History Problem Response Recorded Date/Time Onset Date Status Hx Psychiatric Problems No 02/24/2018 6:14pm Not Applicable Not Applicable Hx Eating Disorder No 02/24/2018 6:14pm Not Applicable Not Applicable Hx Substance Use Disorder No 02/24/2018 6:14pm Not Applicable Not Applicable Hx Depression No 02/24/2018 6:14pm Not Applicable Not Applicable Hx Alcohol Use No 02/24/2018 6:14pm Not Applicable Not Applicable Hx Substance Use Treatment No 02/24/2018 6:14pm Not Applicable Not Applicable Hx Physical Abuse No 02/24/2018 6:14pm Not Applicable Not Applicable 08/16/2018 [facility] Family History No Data Provided for This Section Advance Directives Order Name Results Value Date Source Advance Directives Advance Directives Directive Response Recorded Date/Time Does the patient have an advance directive? No 08/12/18 9:02am If yes, is advance directive on file with [facility]? No 08/12/18 9:02am If not on file with [facility] will patient provide a copy? No 08/12/18 9:02am Do you have a Directive to Physician? No 08/12/18 6:18am Do you have a Medical Power of Stove Polisher? No 08/12/18 6:18am Do you have an out of hospital Do Not Resuscitate Order? No 08/12/18 6:18am Do you have any special needs we should be aware of? No 08/12/18 6:18am Do you have a support person here with you today? No 08/12/18 6:18am Did patient receive Notice of Privacy Practices? No 08/12/18 6:18am Did patient receive patient rights and responsibilities? No 08/12/18 6:18am 08/16/2018 [facility] Functional Status No Data Provided for This Section
--- NOTE | 2019-05-07 02:00 | NUR ---
PT NOW STATES SHE FEELS UNSAFE TO GO HOME HER IS SICK AND UNABLE TO CARE FOR HER; PT STATE HER CAREGIVER ONLY BATHES HER AND SHE CURRENTLY HAS NO ONE; ER MD NOTIFIED AND AWARE; LOOKING TO CALL [facility] FOR POSSIBLE ADMISSION;
--- NOTE | 2019-05-07 02:16 | NUR ---
CALLED ANGEL WITH [facility] AND LEFT MESSAGE - WAITING CALL BACK
--- NOTE | 2019-05-07 02:30 | NUR ---
PT SUCTIONED THROUGH TRACH PER PT REQUEST; SMALL AMOUNT OF MUCOUS IN SUCTION TUBE;
--- NOTE | 2019-05-07 02:30 | NUR ---
PT PLACED ON WAFFLE FOR COMFORT;
[2019-05-07] MEDS ORDERED: ASPIRIN 81 MG CHEW TAB PO ONE (02:45)
--- OUTSIDE RECORDS SUMMARY | 2019-05-07 03:20 | XMS REPORT | Continuity of Care Document ---
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 Name Role Phone [employer] Unavailable Unavailable Problems Problem Status Onset Date Classification Date Reported Comments Source Aspiration pneumonia Active Problem 08/17/2018 [facility] Diarrhea Active Problem 08/17/2018 [facility] Dislodged gastrostomy tube Active Problem 08/17/2018 [facility] Dyspnea Active Problem 08/17/2018 [facility] 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 Active Problem 08/17/2018 [facility] Leukocytosis Active Problem 08/17/2018 [facility] Thrombocytopenia Active Problem 08/17/2018 [facility] 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 [facility] Tracheostomy complication Active Problem 08/17/2018 [facility] Malfunction of tracheostomy Active Problem 08/17/2018 [facility] Urinary tract infection Active Problem 08/17/2018 [facility] Medications Medication Details Route Status Patient Instructions Ordering Provider Order Date Source Folic Acid 1 Mg Tablet Daily Active [place] 08/14/2018 [facility] Acetaminophen With Codeine (Tylenol With Codeine #3 Tablet) 1 Each Tablet Every 6 Hours for Pain Active [place] 08/04/2018 [facility] Loperamide Hcl (Imodium*) 2 Mg Cap Three Times A Day as needed for Diarrhea Active [place] 08/04/2018 [facility] Vancomycin Hcl (Vancocin Hcl) 250 Mg Capsule Every 6 Hours Active [place] 08/04/2018 [facility] Allopurinol 300 Mg Tablet Daily Active [place] 06/28/2018 [facility] Amitriptyline Hcl 25 Mg Tablet Bedtime Active [place] 06/28/2018 [facility] Clonidine Hcl (Catapres) 0.1 Mg Tablet Every 8 Hours as needed for Sbp>160 Active [place] 06/28/2018 [facility] Furosemide (Lasix) 40 Mg Tablet Daily Active [place] 06/28/2018 [facility] Insulin Aspart (Novolog) 100 Units/1 Ml Inj Every 6 Hours Active SLIDING SCALE: 150-200 3 UNITS 201-250 6 UNITS 251-300 9 UNITS 301-350+ 12 UNITS [place] 06/28/2018 [facility] Lactobacillus Acidophilus (Acidophilus) 1 Each Tab.chew Twice A Day Active [place] 06/28/2018 [facility] Levothyroxine Sodium (Synthroid) 75 Mcg Tab Daily@06 Active [place] 06/28/2018 [facility] Lorazepam 0.5 Mg Tablet Three Times A Day as needed for Anxiety Active [place] 06/28/2018 [facility] Metoclopramide Hcl (Reglan) 5 Mg Tablet Three Times A Day Active [place] 06/28/2018 [facility] Mucomyst Twice A Day as needed for Thick Secretions Active 10% MIX WITH ALBUTEROL [place] 06/28/2018 [facility] Potassium Chloride (K Dur*) 10 Meq Tabcr Daily Active [place] 06/28/2018 [facility] Sitagliptin Phosphate (Januvia) 100 Mg Tablet Daily Active [place] 06/28/2018 [facility] Acetaminophen With Codeine (Tylenol With Codeine #3 Tablet) 1 Each Tablet, 300 Mg Oral Every 6 Hours for Pain Active [place] 06/28/2018 [facility] Allopurinol 300 Mg Tablet, 100 Mg Oral Daily Active 06/28/2018 [facility] Amitriptyline Hcl 25 Mg Tablet, 25 Mg Oral Bedtime Active 06/28/2018 [facility] Budesonide (Budesonide Ec) 3 Mg Capdr...er, 3 Mg Inhalation Daily Active 06/28/2018 [facility] Cholestyramine (Cholestyramine Light Packet) 4 Gm Pack, 4 Gm Oral Twice A Day as needed for Diarrhea Active [place] 06/28/2018 [facility] Furosemide (Lasix) 40 Mg Tablet, 40 Mg Oral Daily Active 06/28/2018 [facility] Lactobacillus Acidophilus (Acidophilus) 1 Each Tab.chew, 1 Tab Oral Daily Active 06/28/2018 [facility] Levothyroxine Sodium 50 Mcg Tablet, 50 Mcg Oral Daily Active 06/28/2018 [facility] Levothyroxine Sodium (Synthroid) 50 Mcg Tab, 50 Mcg Oral Today At 6:30AM Active 06/28/2018 [facility] Loperamide Hcl (Imodium*) 2 Mg Cap, 2 Mg Peg Tube Three Times A Day as needed for Diarrhea Active [place] 06/28/2018 [facility] Lorazepam 0.5 Mg Tablet, 0.5 Mg Peg Tube Three Times A Day as needed for Anxiety Active 06/28/2018 [facility] Lorazepam 0.5 Mg Tablet, 0.5 Mg Oral Every 8 Hours for Anxiety Active 06/28/2018 [facility] Metoclopramide Hcl (Reglan) 5 Mg Tablet, 5 Mg Peg Tube Three Times A Day Active 06/28/2018 [facility] Metoclopramide Hcl 5 Mg/5 Ml Solution, 5 Mg Peg Tube Three Times A Day Active 06/28/2018 [facility] Simethicone 80 Mg Chew, 80 Mg Oral After Meals And At Bedtime as needed for Gas Active [place] 06/28/2018 [facility] Sitagliptin Phosphate (Januvia) 100 Mg Tablet, 50 Mg Oral Daily Active 06/28/2018 [facility] Vancomycin Hcl (Vancocin Hcl) 250 Mg Capsule, 250 Mg Oral Every 6 Hours Active [place] 06/28/2018 [facility] Cholestyramine (Cholestyramine Light Packet) 4 Gm Pack, 4 Gm Oral Twice A Day as needed for Diarrhea Active [place] 06/06/2018 [facility] Lactobac Cmb #3/Fos/Pantethine (Probiotic & Acidophilus Cap) 1 Each Capsule, 1 Cap Peg Tube Every 8 Hours Active 06/06/2018 [facility] Acetaminophen With Codeine (Tylenol With Codeine #3 Tablet) 1 Each Tablet, 300 Mg Oral Every 4 Hours as needed for Pain Active 04/17/2018 [facility] Allopurinol 100 Mg Tablet, 100 Mg Oral Daily Active 04/17/2018 [facility] Amitriptyline Hcl 25 Mg Tablet, 25 Mg Oral Bedtime Active 04/17/2018 [facility] Clonidine Hcl (Catapres) 0.1 Mg Tablet, 0.1 Mg Oral Every 8 Hours as needed for Sbp>160 Active [place] 04/15/2018 [facility] Mucomyst , 4 Ml Nebullizer Twice A Day as needed for Thick Secretions Active [place] 04/15/2018 [facility] Calcium Otc , 500 Mg Does Not Apply Active 04/13/2018 [facility] Dicyclomine Hcl 20 Mg Tablet, 20 Mg Oral Four Times Daily Active 04/13/2018 [facility] Famotidine (Pepcid) 20 Mg Tablet, 40 Mg Peg Tube Twice A Day Active 04/13/2018 [facility] Insulin Aspart (Novolog) 100 Units/1 Ml Inj, 0 Sub-Q Every 6 Hours Active [place] 04/13/2018 [facility] Novolog Ss , Active 04/13/2018 [facility] Potassium Chloride (K Dur*) 10 Meq Tabcr, 20 Meq Oral Daily Active [place] 04/13/2018 [facility] Balsam [place] Oil (Venelex Ointment) 60 Gm Oint...g., 60 Gm Topical Twice A Day Active [place] 03/26/2018 [facility] Dextrose (Dextrose 50%-Water Syringe) 50 Ml Inj, 50 Ml Intraven As Needed as needed for Blood Sugar Active [place] 03/26/2018 [facility] Levalbuterol Hcl (Xopenex) 1.25 Mg/3 Ml Vial.neb, 1.25 Mg Inhalation Rt Q6h Active [place] 03/26/2018 [facility] Lorazepam 2 Mg/1 Ml Vial, 1 Mg Intraven Every 6 Hours as needed for Agitation Active [place] 03/26/2018 [facility] Ascorbic Acid 500 Mg Tablet Twice A Day Active [place] 03/09/2018 [facility] Metoprolol Tartrate (Lopressor) 25 Mg Tab Every 12 Hours Active [place] 03/09/2018 [facility] Cholestyramine (Cholestyramine Light Packet) 4 Gm Pack, 4 Gm Oral Twice A Day as needed for Diarrhea Active [place] 03/09/2018 [facility] Ferrous Sulfate 325 Mg Tablet, 325 Mg Peg Tube Twice Daily With Meals Active [place] 03/09/2018 [facility] Metronidazole (Flagyl) 250 Mg Tablet, 500 Mg Peg Tube Every 8 Hours Active 03/09/2018 [facility] Vancomycin Hcl (Vancocin Hcl) 250 Mg Capsule, 250 Mg Oral Every 6 Hours Active [place] 03/09/2018 [facility] Ipratropium/Albuterol Sulfate (Combivent Respimat Inhal [place]) 4 Gm Aer.w.adap, 4 Gm Inhalation Every 6 Hours While Awake Active 02/24/2018 [facility] Metformin Hcl 500 Mg Tablet, 1000 Mg Oral Twice A Day Active 02/24/2018 [facility] Potassium Chloride 10 Meq Tab.er.prt, 10 Meq Oral Twice A Day Active 02/24/2018 [facility] Prednisone 20 Mg Tab, 20 Mg Oral Daily Active 02/24/2018 [facility] Acetaminophen 325 Mg Tablet Every 4 Hours as needed for Pain And Temperature Active [place] 01/20/2018 [facility] Balsam [place] Oil (Venelex Ointment) 60 Gm Oint...g. Daily Active [place] 01/20/2018 [facility] Ipratropium [place] 0.2 Mg/1 Ml Solution Rt Q6h Active [place] 01/20/2018 [facility] Levalbuterol Hcl (Xopenex) 0.63 Mg/3 Ml Vial.neb Rt Q6h as needed for Shorntess Of Breath Active [place] 01/20/2018 [facility] Simethicone 80 Mg Chew After Meals And At Bedtime as needed for Gas Active [place] 01/20/2018 [facility] Calcium Carbonate 500 Mg Tab, 500 Mg Oral Daily Active [place] 01/20/2018 [facility] Cholestyramine (Cholestyramine Light Packet) 4 Gm Pack, 4 Gm Oral Twice A Day as needed for Diarrhea Active [place] 01/20/2018 [facility] Guaifenesin (Mucinex) 600 Mg Tablet.er, 600 Mg Oral Every 6 Hours Active [place] 01/20/2018 [facility] Insulin Regular, Human (Humulin R) 100 Unit/1 Ml Vial, 0 Unit Sub-Q Every 6 Hours Active [place] 01/20/2018 [facility] Levalbuterol Hcl (Xopenex) 0.63 Mg/3 Ml Vial.neb, 0.63 Mg Inhalation Rt Q4h Active [place] 01/20/2018 [facility] Magnesium Oxide 400 Mg Tablet, 400 Mg Oral Twice A Day Active [place] 01/20/2018 [facility] Metoprolol Succinate (Toprol Xl) 25 Mg Tab.er.24h, 12.5 Mg Oral Daily Active [place] 01/20/2018 [facility] Neomy Sulf/Bacitrac Zn/Poly (Triple Antibiotic Ointment) 28 Gm Oint...g., 0 Gm Topically Three Times A Day Active [place] 01/20/2018 [facility] Pantoprazole Sod (Protonix) 40 Mg/Ml Susp, 40 Mg Oral Daily Active [place] 01/20/2018 [facility] Saline 0.65% Gregorio Soln 1 [place] Soln, 0 [place] Nasal Every 4 Hours While Awake Active [place] 01/20/2018 [facility] Allergies, Adverse Reactions, Alerts Substance Category Reaction Severity Reaction type Status Date Reported Comments Source Penicillin Unknown Allergy to Substance Active 06/21/2018 [facility] Titanium Unknown Allergy to Substance Active 06/21/2018 [facility] Heparin Unknown Allergy to Substance Active 06/21/2018 [facility] Immunizations No Data Provided for This Section Results Order Name Results Value Reference Range Date Interpretation Comments Source Capillary blood glucose measurement by glucometer (mass/volume) 104 70 - 120 08/16/2018 [facility] Blood leukocytes automated count (number/volume) 6.60 4.8 - 10.8 08/15/2018 [facility] Blood erythrocytes automated count (number/volume) 3.38 3.6 - 5.1 08/15/2018 [facility] Blood hemoglobin measurement (moles/volume) 9.6 12.0 - 16.0 08/15/2018 [facility] Automated blood hematocrit (volume fraction) 29.9 34.2 - 44.1 08/15/2018 [facility] Automated erythrocyte mean corpuscular volume 88.5 81 - 99 08/15/2018 [facility] Automated erythrocyte mean corpuscular hemoglobin (mass per erythrocyte) 28.4 28 - 32 08/15/2018 [facility] Automated erythrocyte mean corpuscular hemoglobin concentration measurement (mass/volume) 32.1 31 - 35 08/15/2018 [facility] RDW BldCo-Rto 16.4 11.7 - 14.4 08/15/2018 [facility] Automated blood platelet count (count/volume) 55 140 - 360 08/15/2018 [facility] Automated blood segmented neutrophil count as percentage of total leukocytes 65.8 38.7 - 80.0 08/15/2018 [facility] Automated blood lymphocyte count as percentage ot total leukocytes 22.4 18.0 - 39.1 08/15/2018 [facility] Automated blood monocyte count as percentage of total leukocytes 7.7 4.4 - 11.3 08/15/2018 [facility] Automated blood eosinophil count as percentage of total leukocytes 2.9 0.0 - 6.0 08/15/2018 [facility] Automated blood basophil count as percentage of total leukocytes 0.3 0.0 - 1.0 08/15/2018 [facility] IM GRANULOCYTES % 0.9 0.0 - 1.0 08/15/2018 [facility] Automated blood neutrophil count 4.3 2.1 - 6.9 08/15/2018 [facility] Blood lymphocytes count (number/volume) 1.5 1.0 - 3.2 08/15/2018 [facility] Blood monocytes automated count (number/volume) 0.5 0.2 - 0.8 08/15/2018 [facility] Automated blood eosinophil count 0.2 0.0 - 0.4 08/15/2018 [facility] Automated blood basophil count (count/volume) 0.0 0.0 - 0.1 08/15/2018 [facility] Absolute Immature Granulocyte (auto 0.06 0 - 0.1 08/15/2018 [facility] Serum or plasma sodium measurement (moles/volume) 136 136 - 145 08/15/2018 [facility] Serum or plasma potassium measurement (moles/volume) 3.9 3.5 - 5.1 08/15/2018 [facility] Serum or plasma chloride measurement (moles/volume) 100 98 - 107 08/15/2018 [facility] Serum or plasma carbon dioxide, total measurement (moles/volume) 28 22 - 29 08/15/2018 [facility] Serum or plasma anion gap 11.9 8 - 16 08/15/2018 [facility] Serum or plasma urea nitrogen measurement (mass/volume) 11 7 - 26 08/15/2018 [facility] Serum or plasma creatinine measurement (mass/volume) 0.59 0.57 - 1.11 08/15/2018 [facility] Serum or plasma urea nitrogen/creatinine mass ratio 19 6 - 25 08/15/2018 [facility] Estimated glomerular filtration rate (GFR) determination > 60 60 08/15/2018 [facility] Glucose measurement 105 74 - 118 08/15/2018 [facility] Serum or plasma calcium measurement (mass/volume) 9.1 8.4 - 10.2 08/15/2018 [facility] Serum or plasma magnesium measurement (mass/volume) 1.4 1.3 - 2.1 08/15/2018 [facility] BNP Bld-mCnc 92.3 0 - 100 08/15/2018 [facility] Stool gastrointestinal hemoglobin detection NEGATIVE NEGATIVE 08/14/2018 [facility] Clostridium difficile A and B toxin assay NEGATIVE NEGATIVE 08/14/2018 [facility] Serum or plasma iron measurement (mass/volume) 60 50 - 170 08/14/2018 [facility] Serum or plasma iron binding capacity measurement (mass/volume) 140 261 - 478 08/14/2018 [facility] Serum or plasma iron saturation measurement (mass fraction) 43 15 - 50 08/14/2018 [facility] Serum or plasma transferrin measurement (mass/volume) 100 180 - 382 08/14/2018 [facility] Serum or plasma ferritin measurement (mass/volume) 138.64 4.63 - 204.00 08/14/2018 [facility] Blood cobalamin (vitamin B12) measurement (mass/volume) 740 213 - 816 08/14/2018 [facility] Serum or plasma folate measurement (mass/volume) 5.7 7.0 - 15.4 08/14/2018 [facility] Differential Total Cells Counted 100 08/13/2018 [facility] Manual blood neutrophils/100 leukocytes 64 40 - 74 08/13/2018 [facility] Manual blood lymphocytes/100 leukocytes 28 19 - 48 08/13/2018 [facility] Manual blood monocytes/100 leukocytes 8 3.4 - 9.0 08/13/2018 [facility] Blood platelets count by estimate (number/volume) MARKEDLY DECREASED 08/13/2018 [facility] Platelet morphology NORMAL 08/13/2018 [facility] RBC morphology NORMAL 08/13/2018 [facility] Erythrocyte sedimentation rate by Westergren method 29 0 - 20 08/13/2018 [facility] Automated reticulocyte count as percentage of total erythrocytes 1.5 0.8 - 2.2 08/13/2018 [facility] Serum or plasma total bilirubin measurement (mass/volume) 0.3 0.2 - 1.2 08/13/2018 [facility] Serum or plasma conjugated bilirubin measurement (mass/volume) 0.2 0.0 - 0.5 08/13/2018 [facility] Aspartate Amino Transf (AST/SGOT) 12 5 - 34 08/13/2018 [facility] Serum or plasma alanine aminotransferase measurement (enzymatic activity/volume) 6 0 - 55 08/13/2018 [facility] Serum or plasma protein measurement (mass/volume) 5.1 6.5 - 8.1 08/13/2018 [facility] Serum or plasma albumin measurement (mass/volume) 2.3 3.5 - 5.0 08/13/2018 [facility] Plasma globulin measurement (mass/volume) 2.9 2.3 - 3.5 08/13/2018 [facility] Serum or plasma albumin/globulin mass ratio 0.8 0.8 - 2.0 08/13/2018 [facility] Serum or plasma alkaline phosphatase measurement (enzymatic activity/volume) 68 40 - 150 08/13/2018 [facility] Serum or plasma creatine kinase measurement (enzymatic activity/volume) 15 29 - 168 08/13/2018 [facility] Serum or plasma creatine kinase MB measurement (mass/volume) 0.50 0 - 5.0 08/13/2018 [facility] Troponin I measurement by highly sensitive enzyme immunoassay 0.013 0 - 0.300 08/13/2018 [facility] Bacteria identification in sputum by respiratory culture Organism: PSEUDOMONAS AERUGINOSA 08/12/2018 [facility] Blood culture NO GROWTH AFTER 72 HOURS 08/12/2018 [facility] Lactic Acid Level 9.3 4.5 - 19.8 07/30/2018 [facility] Urine color determination YELLOW YELLOW 07/30/2018 [facility] Urine clarity TURBID CLEAR 07/30/2018 [facility] Specific gravity of Urine by Test strip 1.030 1.010 - 1.025 07/30/2018 [facility] Urine pH measurement by automated test strip 6 5 - 7 07/30/2018 [facility] Urine leukocyte esterase detection by dipstick 2+ NEGATIVE 07/30/2018 [facility] Urine nitrite detection POSITIVE NEGATIVE 07/30/2018 [facility] Urine protein measurement by test strip (mass/volume) 1+ NEGATIVE 07/30/2018 [facility] Urine glucose detection NEGATIVE NEGATIVE 07/30/2018 [facility] Urine ketones detection by automated test strip TRACE NEGATIVE 07/30/2018 [facility] Urine urobilinogen measurement by test strip (mass/volume) 0.2 0.2 - 1 07/30/2018 [facility] Urine total bilirubin measurement (mass/volume) NEGATIVE NEGATIVE 07/30/2018 [facility] Urine erythrocytes detection TRACE NEGATIVE 07/30/2018 [facility] Automated urine sediment leukocyte count by microscopy (number/high power field) >50 0 - 5 07/30/2018 [facility] Erythrocytes detection in urine sediment by light microscopy 6-10 0 - 5 07/30/2018 [facility] Bacteria detection in urine sediment by light microscopy MANY NONE 07/30/2018 [facility] Epithelial cells detection in urine sediment by light microscopy MODERATE NONE 07/30/2018 [facility] Influenza virus A and B antigen identification by immunofluorescence NEGATIVE NEGATIVE 07/30/2018 [facility] Manual blood eosinophil count as percentage of total leukocytes 1 0 - 7 06/28/2018 [facility] Serum or plasma uric acid measurement (mass/volume) 6.0 2.5 - 7.0 06/28/2018 [facility] Blood hypochromia detection by light microscopy SLIGHT 06/27/2018 [facility] Blood anisocytosis detection by light microscopy SLIGHT 06/27/2018 [facility] Blood microcytes detection by light microscopy SLIGHT 06/27/2018 [facility] Stool calprotectin measurement (mass/mass) 1960 0 - 120 06/25/2018 [facility] Serum or plasma thyroxine (T4) free measurement (mass/volume) 0.98 0.9 - 1.8 06/24/2018 [facility] Serum or plasma thyrotropin measurement by detection limit <=0.005 miu/l (units/volume) 5.255 0.350 - 4.940 06/24/2018 [facility] Blood polychromasia detection by light microscopy R 06/23/2018 [facility] Blood poikilocytosis detection by light microscopy SLIGHT 06/23/2018 [facility] Serum or plasma prealbumin measurement (mass/volume) 18 10 - 36 06/22/2018 [facility] Amorphous sediment detection in urine sediment by light microscopy MODERATE FEW 06/21/2018 [facility] Serum or plasma amylase measurement (enzymatic activity/volume) 19 25 - 125 06/21/2018 [facility] Serum or plasma lipase measurement (enzymatic activity/volume) 15 8 - 78 06/21/2018 [facility] Manual blood band neutrophils form/100 leukocytes 1 06/06/2018 [facility] Manual basophil percentage 1 0 - 1.5 06/06/2018 [facility] Manual blood myelocytes/100 leukocytes 2 0 - 0 06/06/2018 [facility] Blood toxic granules detection by light microscopy SLIGHT 06/06/2018 [facility] Blood lymphocytes variant count (number/volume) 4 06/02/2018 [facility] Bacterial blood culture Organism: STAPHYLOCOCCUS SP COAG NEG 06/01/2018 [facility] Prothrombin time (PT) in platelet poor plasma by coagulation assay 13.3 11.9 - 14.5 05/14/2018 [facility] INR in Platelet poor plasma by Coagulation assay 1.09 05/14/2018 [facility] Activated partial thromboplastin time (aPTT) in platelet poor plasma bycoagulation assay 27.3 23.8 - 35.5 05/14/2018 [facility] Blood platelet clump detection by light microscopy NONE NONE 04/11/2018 [facility] Manual blood metamyelocytes/100 leukocytes 1 0 - 0 03/07/2018 [facility] Arterial blood pH measurement 7.42 7.31 - 7.41 03/04/2018 [facility] pCO2 BldA 44 41 - 51 03/04/2018 [facility] pCO2 BldA 69 80 - 105 03/04/2018 [facility] Arterial blood bicarbonate measurement (moles/volume) 29 23 - 28 03/04/2018 [facility] Arterial blood base excess by calculation 4.0 -2 - 3 - 2 03/04/2018 [facility] Arterial blood oxygen saturation measurement 94.0 95 - 98 03/04/2018 [facility] FiO2 40 03/04/2018 [facility] Serum or plasma triglyceride measurement (mass/volume) 124 0 - 149 02/27/2018 [facility] Serum or plasma cholesterol measurement (mass/volume) 119 0 - 199 02/27/2018 [facility] Serum or plasma cholesterol in LDL measurement (mass/volume) 44 60 - 130 02/27/2018 [facility] Serum or plasma cholesterol in HDL measurement (mass/volume) 50 40 - 60 02/27/2018 [facility] Serum or plasma total cholesterol/cholesterol in HDL mass ratio 2.4 3.0 - 3.6 02/27/2018 [facility] Bacteria identification in sputum by respiratory culture Organism: PSEUDOMONAS AERUGINOSA 02/26/2018 [facility] Phosphorus measurement 3.5 2.3 - 4.7 02/26/2018 [facility] Serum or plasma 25-hydroxyvitamin D measurement (mass/volume) 23 . 02/26/2018 [facility] Serum or plasma 25-hydroxycalciferol measurement (mass/volume) 22 . 02/26/2018 [facility] Serum or plasma calcidiol measurement (mass/volume) <1.0 . 02/26/2018 [facility] Giant platelet detection RARE 02/25/2018 [facility] Hemoglobin A1c Percent 5.6 4.0 - 7.0 02/25/2018 [facility] Mixed venous blood pH measurement 7.447 7.32 - 7.42 02/10/2018 [facility] Mixed venous blood partial pressure of carbon dioxide measurement at point of care 43.8 40 - 50 02/10/2018 [facility] Mixed venous blood partial pressure of carbon dioxide measurement 37 38 - 42 02/10/2018 [facility] Bicarbonate measurement in mixed venous blood (moles/volume) 30.2 22 - 26 02/10/2018 [facility] Base excess in Mixed venous blood by calculation 6 -5-3 - 5 02/10/2018 [facility] Mixed venous blood oxygen (O2) saturation measurement 72 70 - 75 02/10/2018 [facility] Blood hypersegmented neutrophils detection by light microscopy FEW 01/20/2018 [facility] Blood smudge cells detection by light microscopy FEW 01/16/2018 [facility] Blood stomatocytes detection by light microscopy SLIGHT 01/09/2018 [facility] Blood [place] bodies detection by light microscopy FEW 01/09/2018 [facility] Elliptocyte detection SLIGHT 01/09/2018 [facility] Blood nucleated erythrocytes count (number/volume) 4 01/06/2018 [facility] Blood target cells detection by light microscopy FEW 01/06/2018 [facility] Fibrin D-dimer DDU measurement in platelet poor plasma (mass/volume) 3.57 0.00 - 0.45 01/06/2018 [facility] Bacterial urine culture Urine Culture [facility] Pathology Reports No Data Provided for This [...] Date DC Date Status Source Registered Referred [id number] ILAN SALCEDO MD 10/25/2017 [facility] Discharged Inpatient [id number] ILAN SALCEDO MD 01/06/2018 01/20/2018 [facility] Departed Emergency Room [id number] NATHANIEL SANTACRUZ DO 02/10/2018 02/11/2018 [facility] Discharged Inpatient [id number] ILAN SALCEDO MD 02/26/2018 03/09/2018 [facility] Discharged Inpatient [id number] ILAN SALCEDO MD 03/25/2018 03/26/2018 [facility] Departed Emergency Room [id number] JENN MILLER MD 04/07/2018 04/07/2018 [facility] Discharged Inpatient [id number] ILAN SALCEDO MD 04/14/2018 04/17/2018 [facility] Departed Emergency Room [id number] JENN MILLER MD 05/14/2018 05/14/2018 [facility] Discharged Inpatient [id number] ILAN SALCEDO MD 06/01/2018 06/06/2018 [facility] Discharged Inpatient [id number] ILAN SALCEDO MD 06/21/2018 06/28/2018 [facility] Discharged Inpatient [id number] ILAN SALCEDO MD 07/31/2018 08/04/2018 [facility] Discharged Inpatient [id number] ILAN SALCEDO MD 08/12/2018 08/16/2018 [facility] Procedures Procedure Code Date Perfomer Comments Source US abdomen complete [id number] 08/13/2018 [facility] Esophagogastroduodenoscopy (EGD) with placement of percutaneous endoscopic gastrostomy (PEG) [id number] 08/01/2018 [facility] Computed tomography of abdomen and pelvis with contrast [id number] 06/21/2018 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 [id number] 06/05/2018 [facility] Computed tomography of brain without radiopaque contrast [id number] 06/03/2018 [facility] REVISION OF TRACHEOSTOMY DEVICE IN TRACHEA, PILE DRIVER OPERATOR HELPER APPROACH [id number] 03/26/2018 [facility] DILATION OF TRACHEA, ENDO [id number] 03/03/2018 [facility] CHANGE TRACHEOSTOMY DEVICE IN TRACHEA, EXTERNAL APPROACH [id number] 03/03/2018 [facility] DRAINAGE OF L PLEURAL CAV WITH DRAIN DEV, PERC APPROACH [id number] 03/03/2018 [facility] Computed tomography of soft tissues of neck without contrast [id number] 03/01/2018 [facility] RESPIRATORY VENTILATION, LESS THAN 24 CONSECUTIVE HOURS [id number] 02/27/2018 [facility] BYPASS TRACHEA TO CUTANEOUS WITH TRACH DEV, OPEN APPROACH [id number] 01/13/2018 [facility] INSPECTION OF LARYNX, ENDO [id number] 01/13/2018 [facility] INSERTION OF INFUSION DEV INTO SUP VENA CAVA, PERC APPROACH [id number] 01/13/2018 [facility] RESPIRATORY VENTILATION, 24-96 CONSECUTIVE HOURS [id number] 01/11/2018 [facility] INSERTION OF ENDOTRACHEAL AIRWAY INTO TRACHEA, VIA OPENING [id number] 01/11/2018 CEZAR [facility] INSPECTION OF TRACHEOBRONCHIAL TREE, ENDO [id number] 01/11/2018 EDDIE [facility] Computed tomography of chest with contrast [id number] 01/06/2018 [facility] Assessment and Plan No Data Provided for This Section Plan of Care Plan of Care Date Source Discharge Date 08/16/18 6:50pm Disposition HOME HEALTH SERVICE Prescriptions See Medication Section Additional Instructions/Education f/u with PCP in 1-2 weeks f/u with Dr Kerns as discussed 08/16/2018 [facility] Social History Social History Date Source Social [...] 02/24/2018 6:14pm Not Applicable Not Applicable 08/16/2018 [facility] Family History No Data Provided for This Section Advance Directives Order Name Results Value Date Source Advance Directives Advance Directives Directive Response Recorded Date/Time Does the patient have an advance directive? No 08/12/18 9:02am If yes, is advance directive on file with [facility]? No 08/12/18 9:02am If not on file with [facility] will patient provide a copy? No 08/12/18 9:02am Do you have a Directive to Physician? No 08/12/18 6:18am Do you have a Medical Power of Lead Former? No 08/12/18 6:18am Do you have an [...] rights and responsibilities? No 08/12/18 6:18am 08/16/2018 [facility] Functional Status No Data Provided for This Section
[2019-05-07 03:25] LABS: BASOPHILS % 0.5 % (0.0-1.0); EOSINOPHILS # (AUTO) 0.3 (0.0-0.4); EOSINOPHILS % 5.8 % (0.0-6.0); HEMATOCRIT 32.9 % (34.2-44.1); HEMOGLOBIN 10.6 g/dL (12.0-16.0); LYMPHOCYTES # (AUTO) 1.4 (1.0-3.2); LYMPHOCYTES % 23.4 % (18.0-39.1); MEAN CORPUSCULAR HGB CONC 32.2 g/dL (31-35); MEAN CORPUSCULAR VOLUME 96.2 fL (81-99); MONOCYTES # (AUTO) 0.4 (0.2-0.8); MONOCYTES % 6.6 % (4.4-11.3); NEUTROPHILS # (AUTO) 3.7 (2.1-6.9); NEUTROPHILS % 63.2 % (38.7-80.0); RED BLOOD COUNT 3.42 x10e6/uL (3.6-5.1); RED CELL DISTRIBUTION WIDTH 13.2 % (11.7-14.4)
[2019-05-07 03:26] LABS: BILIRUBIN,URINE NEGATIVE (NEGATIVE); CLARITY,URINE CLOUDY (CLEAR); COLOR,URINE YELLOW (YELLOW); KETONES,URINE NEGATIVE (NEGATIVE); LEUKOCYTE ESTERASE ,URINE LARGE (NEGATIVE); NITRITE,URINE POSITIVE (NEGATIVE); PROTEIN,URINE DIPSTICK NEGATIVE (NEGATIVE); URINE UROBILINOGEN 0.2 mg/dL (0.2 - 1)
--- NOTE | 2019-05-07 03:28 | Diagnostic Imaging Report ---
A single frontal view of the chest. HISTORY: Shortness of breath COMPARISON: Chest radiograph November 16, 2018 DISCUSSION: Portable technique, limits sensitivity of the exam. Soft tissue attenuation partially limits sensitivity of the exam. Overlying artifacts. Tubes/Lines: Unchanged tracheostomy tube. Lungs and pleura: Mild right greater than left upper lung scarring versus subsegmental atelectasis. No evidence of a consolidative pneumonia or pulmonary alveolar edema. No definite pleural effusion or pneumothorax is identified. Heart and mediastinum: The cardiomediastinal silhouette appear(s) unremarkable. Bones and soft tissues: Appear unremarkable, given this limited exam. IMPRESSION: 1. Mild upper lung zone scarring versus atelectasis. 2. No significant interval change. Signed by: Dr. Eric Matta D.O., M.M.M. on 05/07/2019 3:24 AM
[2019-05-07 03:35] LABS: PLATELET COUNT 31 x10e3/uL (140-360)
[2019-05-07 03:44] LABS: WBC,URINE (MAN) 21-50 /HPF (0-5)
[2019-05-07 03:45] LABS: AMORPHOUS SEDIMENT,URINE MODERATE (FEW); BACTERIA,URINE MANY /HPF; EPITHELIAL CELLS,URINE FEW /LPF
[2019-05-07 03:46] LABS: ALANINE AMINOTRANSFERASE 10 IU/L (0-55); ALBUMIN 3.8 g/dL (3.5-5.0); ALBUMIN/GLOBULIN RATIO 1.3 (0.8-2.0); ALKALINE PHOSPHATASE 98 IU/L (40-150); ANION GAP 11.9 mmol/L (8-16); BLOOD UREA NITROGEN 31 mg/dL (7-26); BUN/CREATININE RATIO 42 (6-25); CALCIUM 10.4 mg/dL (8.4-10.2); CARBON DIOXIDE 28 mmol/L (22-29); CHLORIDE 101 mmol/L (98-107); CREATINE KINASE 19 IU/L (29-168); CREATININE, SERUM 0.74 mg/dL (0.57-1.11); EST GLOMERULAR FILTRATION RATE > 60 ML/MIN (60-); GLUCOSE 85 mg/dL (74-118); LIPASE < 4 U/L (8-78); POTASSIUM 3.9 mmol/L (3.5-5.1); SODIUM 137 mmol/L (136-145)
[2019-05-07] MEDS: SODIUM CHLORIDE 0.9% 1000ML 1,000 ML IV SCH ×3 (04:31→20:40)
[2019-05-07] MEDS: CEFTRIAXONE SOD 1 GM/NS 50 ML 50 ML IV SCH ×2 (04:31→17:01)
--- NOTE | 2019-05-07 04:53 | NUR ---
PT ARRIVED BY STRETCHER TO ROOM 199, PT IS AAOX3, RR EVEN AND NON-LABORED, TRACH COLLAR IN PLACE CONNECTED TO 6L O2. PT TRANSFERRED TO HOSPITAL BED BY WAFFLE MATTRESS UNDER PATIENT. ORIENTED PT TO CALL LIGHT, PHONE, BED CONTROLS AND LIGHTS. DIAPER CHANGED AT THIS TIME. LEFT PT LAYING SEMI FOWLERS IN BED, BED IN LOW LOCKED POSITION, SIDE RAILS UPX2, CALL LIGHT AND PHONE WITHIN REACH.
--- NOTE | 2019-05-07 05:42 | NUR ---
SPOKE WITH DAVID SIMEON CONCERNING ORDER FOR CONTINUOUS TUBE FEED DIET. PT REPORTS SHE ONLY HAS TUBE FEEDING FROM BEDTIME TILL MORNING. AT THAT TIME TUBE FEEDING IS STOPPED AND SHE EATS FOODS SUCH TOMATO SOUP, CREAM OF CHICKEN, AND PUDDING. DIETARY CONSULT ORDERED AND TO HOLD TUBE FEED TILL [facility] CAN SEE THE PATIENT AND DIETARY MAKES RECOMMENDATION.
--- NOTE | 2019-05-07 09:33 | NUR ---
pt resting in bed, Kei HYDRATION PLANT OPERATOR aware of labs/plt count no new orders at this time. pt vs stable
--- NOTE | 2019-05-07 11:55 | NUR ---
per pt , pt has glucerna 1.5 via peg at night at 73ml@hr.
[2019-05-07 12:04] LABS: CREATINE KINASE 19 IU/L (29-168)
[2019-05-07] MEDS ORDERED: CLONIDINE HCL 0.1 MG TAB PO PRN (13:45)
[2019-05-07] MEDS ORDERED: SIMETHICONE 80 MG CHEW PO PRN (13:45)
[2019-05-07] MEDS ORDERED: ACETAMINOPHEN 325 MG TAB PO PRN (13:45)
[2019-05-07] MEDS ORDERED: MUCOMYST NEB PRN (13:45)
[2019-05-07] MEDS ORDERED: LOPERAMIDE HCL 2 MG CAP PEG PRN (13:45)
[2019-05-07] MEDS ORDERED: LORAZEPAM 0.5 MG TAB PEG PRN (13:45)
[2019-05-07] MEDS ORDERED: DEXTROSE 50% SYRINGE 50 ML IV PRN (14:00)
--- NOTE | 2019-05-07 14:21 | NUR ---
Nutrition Intervention Note RD Recommendation(s) for Physician: -Rec resuming home TF with Glucerna 1.5 @75mL/hr from 9pm to 6am, providing 1012kcal, 56g protein, 474mL water; water flushes of 50mL/hr, additional per MD -If PO is feasible, rec full liquid diet with Ensure Enlive BID -Check GI tolerance, labs, and weight daily Plan of Care: RD following, monitoring for tolerance and adequacy, TF rec Nutrition reason for involvement: RN consult TF rec RD Assessment 05/07 69yo F, who was admitted for acute on chronic respiratory failure. + trach collar. Unable to obtain info from pt during my visit. Attempted to call family several times to obtain info on TF but no answer. Per MARIA M Phillip, pts stated that pt was getting Glucerna 1.5 via PEG at 73mL/hr from 9pm to 6am. Pt also eats a full liquid diet (tomato soup, cream of chicken, and pudding) by mouth. Upon observation, pt had moderate muscle and fat loss noted. Reviewed her old medical records, pt has lost significant amount of weight within the last year. She weighted over 200lbs in 2018. Will continue to monitor and follow. Principal Problems/Diagnoses: acute on chronic respiratory failure PMH: Tracheal stenosis, acute/chronic respiratory failure, history of C. difficile colitis, recurrent aspiration, hypothyroidism, diabetes, tracheostomy, PEG tube placement, hysterectomy, tonsillectomy. GI: abdomen soft, non-tender, flatus present Skin: no pressure wound noted Labs: (05/07) BUN 31 H, Ca 10.4 H Meds: NaCl Ht: 68in Wt: 160lb BMI: 24.3kg/m2 IBW: 140lb +/- 10% Malnutrition Evaluation (05/07/19) The patient meets criteria for MODERATE protein-calorie malnutrition. Energy intake: <75% of estimated energy requirements for >3 months Weight loss: >20% in 1 year (Chronic) Fat loss: Moderate clavicle protrusion Muscle loss: Moderate temporal depression Supporting Evidence: Fluid accumulation: unable to evaluate Functional Status: no changes Nutrition Prescription (Diet Order): Glucerna 1.5 w full liquids diet Estimated Nutritional Needs: Calories: 1800 2160kcal(25-30kcal/kg/d) Weight used: CBW Protein: 72 108g (1-1.5g/kg/d) Weight used: CBW Diet Adequacy: Not meeting calorie needs, Not meeting protein needs Diet Education Needs Assessment: Diet education not indicated. Nutrition Care Level: mod Nutrition Diagnosis: Moderate malnutrition related to inadequate energy intake as evidenced by severe weight loss, signs of muscle and fat/loss, and inadequate caloric intake >3 months. Goal: Patient will meet 75-100% of estimated needs by follow up Progress: Progressing Interventions: Modified diet, Composition, Rate, Route Monitoring/Evaluation: Total energy intake, Total protein intake, Formula/Solution, Modified diet, Liquid supplement, Weight change Signed: Vania Briceño, MS, RD, LD
[2019-05-07] MEDS ORDERED: ACETYLCYSTEINE 200 MG/ML 4ML VIAL INH PRN (14:30)
[2019-05-07] MEDS: BALSAM PERU/CASTOR OIL 60 GM OINT...G. TP SCH (15:00)
[2019-05-07] MEDS ORDERED: FUROSEMIDE 40 MG TAB PO SCH (15:00)
[2019-05-07] MEDS ORDERED: FOLIC ACID 1 MG TAB PO SCH (15:00)
[2019-05-07] MEDS: INSULIN REGULAR, HUMAN 100 UNIT/1 ML 3ML VIAL SQ SCH ×2 (16:30→21:00)
[2019-05-07] MEDS ORDERED: ASCORBIC ACID 500 MG TAB PO SCH (17:00)
[2019-05-07] MEDS: METOCLOPRAMIDE HCL 10 MG TAB PEG SCH ×2 (17:00→21:40)
[2019-05-07] MEDS: ACETAMINOPHEN/CODEINE 300MG - 30MG TAB PO SCH (17:01)
[2019-05-07] MEDS: LACTOBACILLUS ACIDOPHILUS CAPSULE PEG SCH (17:01)
[2019-05-07] MEDS: FAMOTIDINE 20 MG TAB PEG SCH (17:01)
[2019-05-07] MEDS: VANCOMYCIN 250MG/5ML ORAL SOLN PO SCH (17:03)
--- NOTE | 2019-05-07 18:39 | Consultation ---
DATE OF CONSULTATION: Pulmonary and Critical Care Consultation HISTORY OF PRESENT ILLNESS: The patient is a 69-year-old woman. She has a history of respiratory failure and subglottic stenosis. She has been evaluated by ENT as well as a laryngeal specialist [place]. She did have some dilatation over tracheal stenosis, but they have been unable to decannulate her trach. Her medical history has also been complicated by several episodes of C difficile colitis. This subsequently resolved. She was last admitted to [facility] about 12 months ago with respiratory failure and acute kidney injury. She subsequently recovered and was sent to a senior living facility. She was sent to the [facility] because of difficulty breathing of acute onset. After arriving in the ER, she was suctioned and found to have a mucus plug. She was subsequently sent to the floor for evaluation and continued on humidified trach collar. PAST SURGICAL HISTORY: 1. Tracheostomy as noted above. 2. Status post PEG. 3. Prior left hip replacement. 4. Hysterectomy. PAST MEDICAL HISTORY: 1. Hypothyroidism. 2. Chronic respiratory failure. 3. Subglottic stenosis. 4. COPD. SOCIAL HISTORY: The patient is not an active smoker or drinker. FAMILY HISTORY: Noncontributory. ALLERGIES: THE PATIENT IS ALLERGIC TO PENICILLIN. REVIEW OF SYSTEMS: There is no fever. She has no headache. She has no neck pain. She is not complaining of chest pain. She has no cough. She did have some difficulty breathing, that has resolved. She has no abdominal pain. There is no nausea. She did have some diarrhea. There is no leg edema. PHYSICAL EXAMINATION: VITAL SIGNS: The patient is afebrile. Blood pressure is 129/65 and the saturation is 98%. HEENT: Shows no facial swelling or erythema. There is a tracheostomy in good position. The site looks clean. There is no drainage. CARDIAC: Reveals regular rate and rhythm with normal S1 and S2. LUNGS: Auscultation of lungs reveals clear breath sounds bilaterally. There is no wheezing. ABDOMEN: Soft, nontender. There is no rebound or guarding. There is a feeding tube in place. EXTREMITIES: There is no leg edema. IMPRESSION: 1. Ehyab-vc-hswuouc respiratory failure with mucus plugging. 2. Subglottic stenosis. 3. Thrombocytopenia. 4. Moderate protein-calorie malnutrition. 5. History of Clostridium difficile colitis. PLAN: 1. The patient will have chest physiotherapy and tracheostomy care. 2. Monitor platelet counts. 3. Continue prior home regimen. MD CRIS Celis/ANGEL LUIS /[id number]
[2019-05-07 19:52] LABS: CREATINE KINASE 23 IU/L (29-168)
[2019-05-07] MEDS ORDERED: AMITRIPTYLINE HCL 25 MG TAB PO SCH (21:00)
[2019-05-07] MEDS ORDERED: METOPROLOL TARTRATE 25 MG TAB PO SCH (21:00)
--- NOTE | 2019-05-07 21:50 | NUR ---
PATIENT INCONTINENT OF URINE, SHE'S KEPT CLEAN AND DRY, SKIN PROTECTANT APPLIED TO THE SACRUM AND UNDERNEATH THE ABDOMINAL FOLDS. TUBE FEEDING STARTED AND INFUSING AT 50ML/HR ORDERED. HEAD OF BED ELEVATED, THE PATIENT HAS BEEN SUCTION BY RESPIRATORY THERAPIST, NO RESPIRATORY DISTRESS OBSERVED.
[2019-05-08] VITALS (7 sets, daily range): BP systolic 90–135; BP diastolic 51–73
[2019-05-08] MEDS: VANCOMYCIN 250MG/5ML ORAL SOLN PO SCH (00:40)
[2019-05-08] MEDS: ACETAMINOPHEN/CODEINE 300MG - 30MG TAB PO SCH (00:40)
--- NOTE | 2019-05-08 01:03 | NUR ---
PATIENT KEPT CLEAN AND DRY, SKIN PROTECTANT APPLIED TO THE SACRUM AND THE ABDOMINAL FOLDS. REPOSITION FOR COMFORT, NO RESPIRATORY DISTRESS OBSERVED AND CALL LIGHT WITHIN EASY REACH.
[2019-05-08] MEDS ORDERED: DEXTROSE 50% SYRINGE 50 ML IV PRN (04:00)
[2019-05-08] MEDS ORDERED: SIMETHICONE 80 MG CHEW PEG PRN (04:15)
[2019-05-08] MEDS ORDERED: CLONIDINE HCL 0.1 MG TAB PEG PRN (04:15)
[2019-05-08] MEDS: CEFTRIAXONE SOD 1 GM/NS 50 ML 50 ML IV SCH ×2 (05:02→16:00)
[2019-05-08 05:04] LABS: BASOPHILS % 0.5 % (0.0-1.0); EOSINOPHILS # (AUTO) 0.3 (0.0-0.4); EOSINOPHILS % 5.1 % (0.0-6.0); HEMATOCRIT 34.8 % (34.2-44.1); HEMOGLOBIN 10.9 g/dL (12.0-16.0); LYMPHOCYTES # (AUTO) 1.7 (1.0-3.2); LYMPHOCYTES % 29.1 % (18.0-39.1); MEAN CORPUSCULAR HEMOGLOBIN 30.6 pg (28-32); MEAN CORPUSCULAR HGB CONC 31.3 g/dL (31-35); MEAN CORPUSCULAR VOLUME 97.8 fL (81-99); MONOCYTES # (AUTO) 0.4 (0.2-0.8); MONOCYTES % 7.5 % (4.4-11.3); NEUTROPHILS # (AUTO) 3.4 (2.1-6.9); NEUTROPHILS % 57.5 % (38.7-80.0); RED BLOOD COUNT 3.56 x10e6/uL (3.6-5.1); RED CELL DISTRIBUTION WIDTH 13.2 % (11.7-14.4)
[2019-05-08 05:10] LABS: PLATELET COUNT 29 x10e3/uL (140-360)
[2019-05-08] MEDS ORDERED: ACETAMINOPHEN 325 MG TAB PEG PRN (05:45)
[2019-05-08] MEDS: VANCOMYCIN 250MG/5ML ORAL SOLN PEG SCH ×3 (06:00→17:32)
[2019-05-08] MEDS ORDERED: LEVOTHYROXINE SODIUM 75 MCG TAB PO SCH (06:00)
[2019-05-08] MEDS: LEVOTHYROXINE SODIUM 75 MCG TAB PEG SCH (06:00)
[2019-05-08] MEDS: ACETAMINOPHEN/CODEINE 300MG - 30MG TAB PEG SCH ×5 (06:00→22:42)
--- NOTE | 2019-05-08 06:10 | NUR ---
PATIENT INCONTINENT OF STOOL AND URINE, SHE'S KEPT CLEAN AND DRY WITH SKIN PROTECTANT APPLIED TO THE SACRUM. TRACH INTACT, NO RESPIRATORY DISTRESS OBSERVED. BED ALARM ON, CALL LIGHT WITHIN EASY REACH.
[2019-05-08 06:11] LABS: ALANINE AMINOTRANSFERASE 10 IU/L (0-55); ALBUMIN 3.3 g/dL (3.5-5.0); ALBUMIN/GLOBULIN RATIO 1.2 (0.8-2.0); ALKALINE PHOSPHATASE 90 IU/L (40-150); ANION GAP 8.3 mmol/L (8-16); BLOOD UREA NITROGEN 19 mg/dL (7-26); BUN/CREATININE RATIO 27 (6-25); CALCIUM 9.4 mg/dL (8.4-10.2); CARBON DIOXIDE 28 mmol/L (22-29); CHLORIDE 104 mmol/L (98-107); EST GLOMERULAR FILTRATION RATE > 60 ML/MIN (60-); GLUCOSE 85 mg/dL (74-118); PHOSPHORUS 2.8 MG/DL (2.3-4.7); POTASSIUM 4.3 mmol/L (3.5-5.1); SODIUM 136 mmol/L (136-145)
[2019-05-08 06:30] LABS: THYROID STIMULATING HORMONE 1.678 uIU/mL (0.350-4.940)
[2019-05-08] MEDS: IPRATROPIUM BROMIDE 0.02% 2.5 ML NEB NEB SCH ×3 (06:34→19:45)
[2019-05-08] MEDS: LEVALBUTEROL HCL SOLN NEBU 0.63 MG/3 ML NEB INH PRN ×3 (06:34→19:45)
[2019-05-08 07:04] LABS: MAGNESIUM 1.7 MG/DL (1.3-2.1)
[2019-05-08] MEDS: INSULIN REGULAR, HUMAN 100 UNIT/1 ML 3ML VIAL SQ SCH ×4 (07:30→21:00)
[2019-05-08] MEDS: FAMOTIDINE 20 MG TAB PEG SCH ×2 (07:30→17:15)
[2019-05-08 08:03] LABS: EOSINOPHILS % (MANUAL) 5 % (0-7); LYMPHOCYTES % (MANUAL) 28 % (19-48); MONOCYTES % (MANUAL) 7 % (3.4-9.0); NEUTROPHILS % (MANUAL) 60 % (40-74); PLATELET ESTIMATE MODERATELY DECREASED
--- NOTE | 2019-05-08 08:04 | NUR ---
Received patient this morning, a/ox3, in bed, trach in place and on O2 6L NC, asked to have a suctiona and suctioned x2 for thin small secretions, patient anxious but O2Sats at 100%, no resp distress, will monitor, call light within reach and tube feed stopped per orders, tolerated small liquid breakfast diet, will monitor.
[2019-05-08 08:09] LABS: RBC MORPHOLOGY COMMENT NORMAL
[2019-05-08] MEDS ORDERED: POTASSIUM CHLORIDE 10MEQ EA PO SCH (09:00)
[2019-05-08] MEDS ORDERED: SITAGLIPTIN 100 MG TAB PO SCH (09:00)
[2019-05-08] MEDS ORDERED: ALLOPURINOL 100 MG TAB PO SCH (09:00)
[2019-05-08] MEDS: FOLIC ACID 1 MG TAB PEG SCH (09:40)
[2019-05-08] MEDS: SITAGLIPTIN 100 MG TAB PEG SCH (09:41)
[2019-05-08] MEDS: METOPROLOL TARTRATE 25 MG TAB PEG SCH ×2 (09:41→20:09)
[2019-05-08] MEDS: POTASSIUM CHLORIDE 10MEQ EA PEG SCH (09:41)
[2019-05-08] MEDS: FUROSEMIDE 40 MG TAB PEG SCH (09:41)
[2019-05-08] MEDS: LACTOBACILLUS ACIDOPHILUS CAPSULE PEG SCH ×3 (09:42→17:15)
[2019-05-08] MEDS: METOCLOPRAMIDE HCL 10 MG TAB PEG SCH ×3 (09:43→20:09)
[2019-05-08] MEDS: ALLOPURINOL 100 MG TAB PEG SCH (09:43)
[2019-05-08] MEDS: ASCORBIC ACID 500 MG TAB PEG SCH ×3 (09:43→17:15)
--- NOTE | 2019-05-08 10:21 | NUR ---
Per speech recommendation to order MBS, INDUSTRIAL ECONOMICS PROFESSOR contacted and orders in place.
--- NOTE | 2019-05-08 12:46 | NUR ---
Incontinence care provided, partial bed bath provided, repositioned several times, on air mattress, trach in place, will monitor.
[2019-05-08] MEDS: BALSAM PERU/CASTOR OIL 60 GM OINT...G. TP SCH (13:00)
--- NOTE | 2019-05-08 15:49 | Progress Note ---
DATE: SUBJECTIVE: The patient is having no further respiratory problems. She is comfortable on trach collar. PHYSICAL EXAMINATION: VITAL SIGNS: The patient is afebrile. Blood pressure is 90/51 and the pulse is 65. Saturation is 98%. HEENT: Shows no facial swelling or erythema. CARDIAC: Reveals a regular rate and rhythm with normal S1, S2. LUNGS: Auscultation of lungs shows clear breath sounds bilaterally. There is no wheezing. ABDOMEN: Soft, nontender. There is no rebound or guarding. EXTREMITIES: Show no leg edema or calf tenderness. There is no cyanosis or clubbing. IMPRESSION: 1. Thrombocytopenia. 2. Hcikb-gc-wcdflfc respiratory failure, secondary to mucus plugging. 3. Subglottic stenosis. 4. History of Clostridium difficile colitis. 5. Moderate protein-calorie malnutrition. PLAN: 1. Continue trach care and humidified trach collar. 2. Abdominal ultrasound to look for any evidence of hepatosplenomegaly. 3. Review of medications for any potential causes of thrombocytopenia. Juan C Kerns MD [facility] /[id number]
--- NOTE | 2019-05-08 16:05 | NUR ---
WOUND CARE CONSULTATION: THIS IS A 69 YEAR OLD FEMALE PATIENT ADMITTED TO [facility] FOR ACUTE AND CHRONIC RESPIRATORY FAILURE. HEAD TO TOE SKIN ASSESSMENT PERFORMED. PATIENT HAS A LEFT MEDIAL FOOT BRUISE MEASURING 1X0.5CM, SKIN INTACT. PATIENT STATED THAT SHE HIT HER FOOT ON HER WHEEL CHAIR. PATIENT HAS SACRAL REDNESS, 100% BLANCHABLE MEASURING 2X1.7CM. LABS: WBC5.87 ALB3.3 SzuF7K5.6 BLOOD, URINE, AND SPUTUM CULTURE = PENDING MEDICATIONS: VANCOMYCIN CEFTRIAXONE RECOMMENDATIONS: -CONTINUE ALTERNATING PRESSURE RELIEF MATTRESS. -CONTINUE BILATERAL HEEL PROTECTORS WITH PILLOW SUSPENSION. -TURN EVERY 2 HOURS AND PRN. -NURSING TO MONITOR BRUISE TO LEFT MEDIAL FOOT. -NURSING TO CLEAN AREA OF BLANCHABLE REDNESS TO SACRUM WITH NORMAL SALINE, PAT DRY, APPLY VENELEX THEN ALLEVYN FOAM DRESSING; CHANGE DAILY AND PRN. THANK YOU FOR THIS WOUND CARE CONSULT. Addendum: 05/08/19 at 1613 by Leslie Wilkinson RN Amended: Links added.
[2019-05-08] MEDS: AMITRIPTYLINE HCL 25 MG TAB PEG SCH (20:08)
[2019-05-08] MEDS ORDERED: SODIUM CHLORIDE 0.9% 250ML 250 ML ONE (21:35)
[2019-05-09] VITALS (8 sets, daily range): BP systolic 97–121; BP diastolic 48–68
[2019-05-09] MEDS: VANCOMYCIN 250MG/5ML ORAL SOLN PEG SCH ×4 (00:19→17:45)
[2019-05-09 00:55] LABS: BASOPHILS % 0.4 % (0.0-1.0); EOSINOPHILS # (AUTO) 0.4 (0.0-0.4); EOSINOPHILS % 5.1 % (0.0-6.0); HEMATOCRIT 30.6 % (34.2-44.1); LYMPHOCYTES # (AUTO) 1.5 (1.0-3.2); MEAN CORPUSCULAR HEMOGLOBIN 31.3 pg (28-32); MEAN CORPUSCULAR HGB CONC 32.7 g/dL (31-35); MEAN CORPUSCULAR VOLUME 95.9 fL (81-99); MONOCYTES # (AUTO) 0.5 (0.2-0.8); MONOCYTES % 6.5 % (4.4-11.3); NEUTROPHILS # (AUTO) 4.6 (2.1-6.9); NEUTROPHILS % 66.7 % (38.7-80.0); RED BLOOD COUNT 3.19 x10e6/uL (3.6-5.1); RED CELL DISTRIBUTION WIDTH 13.3 % (11.7-14.4)
[2019-05-09 00:59] LABS: PLATELET COUNT 34 x10e3/uL (140-360)
[2019-05-09 01:10] LABS: ANION GAP 13.4 mmol/L (8-16); BLOOD UREA NITROGEN 18 mg/dL (7-26); BUN/CREATININE RATIO 24 (6-25); CALCIUM 9.5 mg/dL (8.4-10.2); CARBON DIOXIDE 24 mmol/L (22-29); CHLORIDE 104 mmol/L (98-107); CREATININE, SERUM 0.74 mg/dL (0.57-1.11); EST GLOMERULAR FILTRATION RATE > 60 ML/MIN (60-); GLUCOSE 87 mg/dL (74-118); POTASSIUM 4.4 mmol/L (3.5-5.1); SODIUM 137 mmol/L (136-145)
[2019-05-09 01:33] LABS: MAGNESIUM 1.6 MG/DL (1.3-2.1)
[2019-05-09] MEDS: IPRATROPIUM BROMIDE 0.02% 2.5 ML NEB NEB SCH ×4 (01:40→20:00)
[2019-05-09] MEDS: CEFTRIAXONE SOD 1 GM/NS 50 ML 50 ML IV SCH ×2 (03:18→15:37)
[2019-05-09] MEDS: ACETAMINOPHEN/CODEINE 300MG - 30MG TAB PEG SCH ×2 (03:54→11:45)
[2019-05-09] MEDS: LEVOTHYROXINE SODIUM 75 MCG TAB PEG SCH (05:29)
[2019-05-09] MEDS: INSULIN REGULAR, HUMAN 100 UNIT/1 ML 3ML VIAL SQ SCH ×4 (07:30→21:00)
[2019-05-09] MEDS: FAMOTIDINE 20 MG TAB PEG SCH ×2 (07:30→17:45)
[2019-05-09] MEDS: LEVALBUTEROL HCL SOLN NEBU 0.63 MG/3 ML NEB INH PRN ×3 (07:40→20:00)
--- NOTE | 2019-05-09 07:42 | NUR ---
Received patient this morning and a/ox3, completely saturated in bed and all sheets changed and incontinence care provided at this time, needing suctioning and provided to maintain a patent airway. Patient complained that her trach was coming out and RT notified. In the room now with patient.
[2019-05-09] MEDS: POTASSIUM CHLORIDE 10MEQ EA PEG SCH (09:08)
[2019-05-09] MEDS: FUROSEMIDE 40 MG TAB PEG SCH (09:08)
[2019-05-09] MEDS: FOLIC ACID 1 MG TAB PEG SCH (09:08)
[2019-05-09] MEDS: SITAGLIPTIN 100 MG TAB PEG SCH (09:08)
[2019-05-09] MEDS: ALLOPURINOL 100 MG TAB PEG SCH (09:09)
[2019-05-09] MEDS: METOPROLOL TARTRATE 25 MG TAB PEG SCH ×2 (09:09→21:00)
[2019-05-09] MEDS: ASCORBIC ACID 500 MG TAB PEG SCH (09:09)
[2019-05-09] MEDS: LACTOBACILLUS ACIDOPHILUS CAPSULE PEG SCH (09:09)
[2019-05-09] MEDS: METOCLOPRAMIDE HCL 10 MG TAB PEG SCH ×3 (09:09→21:45)
[2019-05-09] MEDS: BALSAM PERU/CASTOR OIL 60 GM OINT...G. TP SCH (09:11)
[2019-05-09] MEDS: BALSAM PERU/CASTOR OIL 5 GM OINT...G. TP SCH (09:11)
--- NOTE | 2019-05-09 12:05 | NUR ---
Report given to KANDACE Smith completed, patient had a large stool mixed in urine and could not obtain specimen. Transferred to room 203 with RT for respiratory support.
--- NOTE | 2019-05-09 15:46 | NUR ---
[facility] FILED IN CHART AND ASKED FOR CLINICAL PACKET TO BE PUT TOGETHER
--- NOTE | 2019-05-09 15:48 | Diagnostic Imaging Report ---
Abdominal ultrasound. History: Hepatosplenomegaly. Comparison: Prior ultrasound 08/13/2018. Discussion: Transverse and longitudinal images of the abdomen were obtained demonstrating a liver of normal size but diffusely increased and coarsened echogenicity measuring 16.5 cm in length. There is nodular surface contour without focal hepatic abnormality. The portal vein is patent with hepatopetal flow and is within normal limits measuring 11 mm in diameter. The biliary tree is within normal limits with the common bile duct measuring 7 mm in diameter. The gallbladder contains several shadowing stones without evidence of wall thickening or pericholecystic fluid. The sonographic Rodriguez's sign was negative. The kidneys are normal in size and echogenicity bilaterally without evidence of hydronephrosis, stones, or mass. The right kidney measures 10.5 cm and the left kidney measures 10.4 cm in length. The spleen is normal in size and appearance measuring 12.1 cm in length. The pancreatic head and body are visualized and are normal in appearance. The abdominal aorta and IVC are within normal limits. There is no evidence of free fluid. IMPRESSION: 1. Cirrhotic appearing liver. Correlate with LFTs. Consider further evaluation with CT abdomen with and without contrast. 2. Cholelithiasis without sonographic evidence of cholecystitis. Signed by: Raf Fuentes on 05/09/2019 3:45 PM
--- NOTE | 2019-05-09 15:50 | Progress Note ---
DATE: SUBJECTIVE: The patient has less respiratory symptoms. PHYSICAL EXAMINATION: VITAL SIGNS: The patient is afebrile. Blood pressure is 121/68 and the pulse is 60, saturation is 100% on 5 L, and she is on a trach collar. CARDIAC: Reveals regular rate and rhythm with a normal S1, S2. LUNGS: Auscultation of lungs reveals clear breath sounds bilaterally. There is no wheezing. ABDOMEN: Soft, nontender. There is no rebound or guarding. EXTREMITIES: Show no leg edema or calf tenderness. There is no cyanosis or clubbing. SKIN: Shows no rashes. NEUROLOGICAL: Shows no focal abnormalities. IMPRESSION: 1. Thrombocytopenia. 2. Amqup-oq-szwvyip respiratory failure. 3. Subglottic stenosis. 4. Pyelonephritis with sepsis, present on admission. 5. History of Clostridium difficile colitis. 6. History of hepatosplenomegaly. PLAN: 1. Continue antibiotics for urinary tract infection. 2. Abdominal ultrasound. 3. Continue humidified trach collar and suctioning. 4. Continue nutritional supplementation. 5. Contact isolation for extended-spectrum beta-lactamase in the sputum. Juan C Kenrs MD [facility] /[id number]
--- NOTE | 2019-05-09 16:17 | Diagnostic Imaging Report ---
Modified barium swallow, 05/09/2019. History: Aspiration. Fluoro time: 2.5 min. Dose: 13.2 mGy (WALE) Technique: Fluoroscopy was performed by paint laboratory technician. A radiologist was not present for exam. Fluoroscopic observation and imaging of the oral cavity, oropharynx, and hypopharynx was performed in the lateral projection during swallowing of liquids and solids, administered by speech pathology. See speech pathologist report for findings. Signed by: Raf Fuentes on 05/09/2019 4:13 PM
[2019-05-09] MEDS: ACETYLCYSTEINE 200 MG/ML 4ML VIAL INH PRN (20:00)
--- NOTE | 2019-05-09 21:00 | NUR ---
Patient received lying in bed . AAO x 3. HOB elevated. Patient had no complaints of pain. No signs of respiratory distress. Trach in place. Tube feeding (Glucerna) infusing at 50cc/hr. Patient instructed to call for assistance when needed. Call light within reach.
[2019-05-09] MEDS: AMITRIPTYLINE HCL 25 MG TAB PEG SCH (21:45)
--- NOTE | 2019-05-09 22:15 | NUR ---
PATIENT TOLERATING TUBE FEEDING WITHOUT NAUSEA/VOMITING OR DIARRHEA, SHE HAS BEEN SUCTION SEVERAL TIMES BY RESPIRATORY THERAPIST. TRACH INTACT, NO RESPIRATORY DISTRESS OBSERVED. G-TUBE SITE CLEANSE WITH SALINE SOLUTION, DRESSING APPLIED TO THE SITE. CALL LIGHT WITHIN EASY REACH, SHE'S INSTRUCTED TO CALL FOR ASSISTANCE NEEDED.
[2019-05-10] MEDS: VANCOMYCIN 250MG/5ML ORAL SOLN PEG SCH ×4 (00:28→16:52)
[2019-05-10] MEDS: ACETAMINOPHEN/CODEINE 300MG - 30MG TAB PEG SCH ×5 (00:28→16:52)
--- NOTE | 2019-05-10 00:50 | NUR ---
Tube feeding stopped. Reason: Residual greater than 70 cc. Will re-assess.
[2019-05-10] MEDS: ACETYLCYSTEINE 200 MG/ML 4ML VIAL INH PRN ×3 (01:00→13:50)
[2019-05-10] MEDS: IPRATROPIUM BROMIDE 0.02% 2.5 ML NEB NEB SCH ×3 (01:00→13:00)
[2019-05-10] MEDS: LEVALBUTEROL HCL SOLN NEBU 0.63 MG/3 ML NEB INH PRN ×3 (01:00→13:00)
--- NOTE | 2019-05-10 03:00 | NUR ---
Blood specimen sent to lab for analysis
[2019-05-10 03:39] LABS: BASOPHILS % 0.3 % (0.0-1.0); EOSINOPHILS # (AUTO) 0.3 (0.0-0.4); EOSINOPHILS % 5.2 % (0.0-6.0); HEMATOCRIT 32.9 % (34.2-44.1); HEMOGLOBIN 10.8 g/dL (12.0-16.0); LYMPHOCYTES # (AUTO) 1.4 (1.0-3.2); MEAN CORPUSCULAR HEMOGLOBIN 30.9 pg (28-32); MEAN CORPUSCULAR HGB CONC 32.8 g/dL (31-35); MONOCYTES # (AUTO) 0.5 (0.2-0.8); MONOCYTES % 8.5 % (4.4-11.3); NEUTROPHILS # (AUTO) 3.6 (2.1-6.9); NEUTROPHILS % 61.8 % (38.7-80.0); RED CELL DISTRIBUTION WIDTH 13.2 % (11.7-14.4)
[2019-05-10 03:42] LABS: PLATELET COUNT 29 x10e3/uL (140-360)
[2019-05-10 03:44] VITALS: BP 100/61
[2019-05-10 03:58] LABS: ANION GAP 11.6 mmol/L (8-16); BLOOD UREA NITROGEN 18 mg/dL (7-26); BUN/CREATININE RATIO 25 (6-25); CALCIUM 9.9 mg/dL (8.4-10.2); CARBON DIOXIDE 27 mmol/L (22-29); CHLORIDE 98 mmol/L (98-107); CREATININE, SERUM 0.71 mg/dL (0.57-1.11); EST GLOMERULAR FILTRATION RATE > 60 ML/MIN (60-); GLUCOSE 86 mg/dL (74-118); POTASSIUM 3.6 mmol/L (3.5-5.1); SODIUM 133 mmol/L (136-145)
[2019-05-10] MEDS: CEFTRIAXONE SOD 1 GM/NS 50 ML 50 ML IV SCH ×2 (04:02→16:30)
[2019-05-10] MEDS: LEVOTHYROXINE SODIUM 75 MCG TAB PEG SCH (05:51)
--- NOTE | 2019-05-10 06:25 | NUR ---
Jing Rollins (FORM CARPENTER) made aware of critical platelet level of 29. Dr. Shonda Willis consulted. Reason: Thrombocytopenia.
--- NOTE | 2019-05-10 06:31 | NUR ---
Dr. Shonda Willis paged regarding "Routine Consult". Awaiting call back.
--- NOTE | 2019-05-10 07:00 | NUR ---
Walking rounds done. Shift report given to oncoming nurse.
[2019-05-10] MEDS: INSULIN REGULAR, HUMAN 100 UNIT/1 ML 3ML VIAL SQ SCH ×3 (07:30→16:30)
[2019-05-10 07:46] VITALS: BP 110/56
[2019-05-10 07:52] LABS: EOSINOPHILS % (MANUAL) 4 % (0-7); LYMPHOCYTES % (MANUAL) 30 % (19-48); MONOCYTES % (MANUAL) 7 % (3.4-9.0); NEUTROPHILS % (MANUAL) 59 % (40-74)
[2019-05-10 07:53] LABS: PLATELET ESTIMATE MARKEDLY DECREASED; RBC MORPHOLOGY COMMENT NORMAL
--- NOTE | 2019-05-10 08:38 | Progress Note ---
DATE: SUBJECTIVE: The patient went for an ultrasound yesterday. She has changes in her liver consistent with cirrhosis. She also has cholelithiasis. PHYSICAL EXAMINATION: VITAL SIGNS: The patient is afebrile. The vital signs are stable. HEENT: Shows no facial swelling or erythema. There is a tracheostomy in good position. The site looks clean. There is no drainage. CARDIAC: Reveals a regular rate and rhythm with normal S1 and S2. There are no murmurs or rubs. Auscultation of lungs reveals decreased breath sounds at the bases. ABDOMEN: Soft and nontender. There is a feeding tube in place. IMPRESSION: 1. Cirrhosis with splenomegaly. 2. Thrombocytopenia. 3. Arzrz-wu-cieatfk respiratory failure. 4. Subglottic stenosis. 5. Pyelonephritis with sepsis, present on admission. 6. Moderate protein-calorie malnutrition. 7. History of Clostridium difficile colitis. PLAN: 1. Continue enteral feedings. 2. Continue trach care. 3. Continue antibiotics for urinary tract infection. 4. Physical therapy. MD CRIS Celis/ANGEL LUIS /[id number]
[2019-05-10] MEDS: FOLIC ACID 1 MG TAB PEG SCH (08:44)
[2019-05-10] MEDS: METOPROLOL TARTRATE 25 MG TAB PEG SCH (08:45)
[2019-05-10] MEDS: LACTOBACILLUS ACIDOPHILUS CAPSULE PEG SCH ×2 (08:45→16:30)
[2019-05-10] MEDS: POTASSIUM CHLORIDE 10MEQ EA PEG SCH (08:45)
[2019-05-10] MEDS: ASCORBIC ACID 500 MG TAB PEG SCH ×2 (08:45→16:30)
[2019-05-10] MEDS: ALLOPURINOL 100 MG TAB PEG SCH (08:45)
[2019-05-10] MEDS: METOCLOPRAMIDE HCL 10 MG TAB PEG SCH ×2 (08:45→16:30)
[2019-05-10] MEDS: SITAGLIPTIN 100 MG TAB PEG SCH (08:45)
[2019-05-10] MEDS: FUROSEMIDE 40 MG TAB PEG SCH (08:45)
[2019-05-10] MEDS: FAMOTIDINE 20 MG TAB PEG SCH ×2 (08:45→16:30)
[2019-05-10] MEDS: BALSAM PERU/CASTOR OIL 5 GM OINT...G. TP SCH (09:00)
[2019-05-10] MEDS: BALSAM PERU/CASTOR OIL 60 GM OINT...G. TP SCH (09:00)
--- NOTE | 2019-05-10 10:08 | Consultation ---
DATE OF CONSULTATION: 05/10/[address] Stein for this consultation. REASON FOR CONSULTATION: This is a 69-year-old female with a past medical history include hypothyroidism, chronic respiratory failure, subglottic stenosis, status post tracheostomy, COPD, being followed with the ENT in past, currently in hospital with worsening shortness of breath. Initial impression was mucus plug required suction, started on humidified trach collar. No fevers or chills reported before admission. She does have cough. Oxygen saturation was 98%. Her CBC showed thrombocytopenia with a platelet count of 31, currently ranging between 30 to 40. Her previous record goes to the 2018 shows thrombocytopenia, but platelet counts were running between 50 to 100. Lowest platelet count went down to 43. Previous coagulation profile was normal. No recent coagulation profile available. Her imaging includes ultrasound of abdomen shows cirrhotic liver. Her CT abdomen in 2018 did not show any chronic liver disease. Hemoglobin is borderline low with normal MCV. White cell count is stable. No evidence of any active bleeding. Hemoglobin is staying in the same range. PAST MEDICAL HISTORY: Hypothyroidism, chronic respiratory failure, subglottic stenosis, COPD, chronic thrombocytopenia. SOCIAL HISTORY: No smoking or alcohol intake. FAMILY HISTORY: Not relevant. ALLERGIES: PENICILLIN. MEDICATIONS: List reviewed. REVIEW OF SYSTEMS: As per HPI. PHYSICAL EXAMINATION: VITAL SIGNS: The patient is afebrile. Vitals stable. Oxygen saturation above 95%. HEENT: Normocephalic, atraumatic. NECK: Tracheostomy in good position. CARDIAC: Regular rate and rhythm. LUNGS: No wheezing. Clear breath sounds bilateral. ABDOMEN: Soft, nontender. EXTREMITIES: No edema. LABORATORY AND IMAGING DATA: Reviewed. As per the HPI. ASSESSMENT AND PLAN: The patient with history of multiple medical conditions, currently in hospital with [id number] respiratory failure with mucus plugging. She has a history of subglottic stenosis. The patient also had worsening thrombocytopenia. Thrombocytopenia: The patient has chronic thrombocytopenia. Platelet count was running in past around 50 to 100. Current platelet counts are worsening, running between 30 and 40. No evidence of any active bleeding. So far, workup shows cirrhotic liver on ultrasound of the abdomen. Possibility of multifactorial Include: 1. Malnutrition. 2. Chronic liver disease. 3. Marrow suppression. RECOMMENDATIONS: 1. We will check a complete workup. 2. Kidney functions are normal, which ruled out TTP and HUS. 3. Do not recommend any medication. 4. Platelet transfusion before any procedural bleeding. 5. Monitor CBC closely. 6. Further recommendation and treatment as per workup. 7. We will monitor the patient very closely. MD BEN Gonzalez/ANGEL LUIS /[id number]
[2019-05-10 11:24] LABS: FOLATE 29.8 ng/mL (7.0-15.4)
[2019-05-10 11:34] VITALS: BP 126/74
--- NOTE | 2019-05-10 11:54 | NUR ---
PT ACCEPTED TO [facility]OM [address] [place]
--- NOTE | 2019-05-10 14:25 | NUR ---
Report called to [facility]. Patient is aware. She is going to room 501.
[2019-05-10 16:04] VITALS: BP 102/53
--- NOTE | 2019-05-10 17:09 | NUR ---
Patient left the floor with [facility]. She is being transferred to [facility].
== END 2019-05-10 17:09 | DRG 871 ==
LOC: ER 00:22 → ERHOLD 03:16 → IMCU 04:59 → OBSVTOIN 05-09 09:21 → MED/SURG2 05-09 12:00
PROVIDERS: ADMIT Internal Medicine; ATTEND Internal Medicine
DX: A41.9 Sepsis, unspecified organism (principal); J96.20 Acute and chronic respiratory failure, unspecified whether with hypoxia or hypercapnia; E44.0 Moderate protein-calorie malnutrition; N12 Tubulo-interstitial nephritis, not specified as acute or chronic; J95.03 Malfunction of tracheostomy stoma; I10 Essential (primary) hypertension; K21.9 Gastro-esophageal reflux disease without esophagitis; F41.9 Anxiety disorder, unspecified; J39.8 Other specified diseases of upper respiratory tract; E11.22 Type 2 diabetes mellitus with diabetic chronic kidney disease; D69.6 Thrombocytopenia, unspecified; F32.9 Major depressive disorder, single episode, unspecified; E03.9 Hypothyroidism, unspecified; Z99.3 Dependence on wheelchair; J38.6 Stenosis of larynx; Z68.24 Body mass index [BMI] 24.0-24.9, adult; R16.2 Hepatomegaly with splenomegaly, not elsewhere classified; Z16.12 Extended spectrum beta lactamase (ESBL) resistance; K74.60 Unspecified cirrhosis of liver; T17.990A Other foreign object in respiratory tract, part unspecified in causing asphyxiation, initial encounter; E11.51 Type 2 diabetes mellitus with diabetic peripheral angiopathy without gangrene; I12.9 Hypertensive chronic kidney disease with stage 1 through stage 4 chronic kidney disease, or unspecified chronic kidney disease; N18.9 Chronic kidney disease, unspecified; Z93.1 Gastrostomy status
CPT/HCPCS: 36415; 71045; 74230; 76700; 80048; 80053; 81001; 82550; 82553; 82607; 82728; 82746; 82948; 83036; 83690; 83735; 83880; 84100; 84443; 84484; 85025; 87040; 87070; 87071; 87086; 87186; 87205; 87493; 94640; 96367; 97139; 99285; G0378; J0696; J1817; J7030; J7050

== ENCOUNTER 2019-06-14 17:40 | Emergency (ER) | payer MEDICARE, OTHER ==
[~2019-06-14] VITALS: Ht 172.7 cm; Wt 72.6 kg
--- OUTSIDE RECORDS SUMMARY | 2019-06-14 17:44 | XMS REPORT | Continuity of Care Document ---
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 Active Problem 08/17/2018 [facility] Leukocytosis Active Problem 08/17/2018 [facility] Thrombocytopenia Active Problem 08/17/2018 [facility] 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 [facility] Tracheostomy complication Active Problem 08/17/2018 [facility] Malfunction of tracheostomy Active Problem 08/17/2018 [facility] Urinary tract infection Active Problem 08/17/2018 [facility] Medications Medication Details Route Status Patient Instructions Ordering Provider Order Date Source Folic Acid 1 Mg Tablet Daily Active [place] 08/14/2018 [facility] Acetaminophen With Codeine (Tylenol With Codeine #3 Tablet) 1 Each Tablet Every 6 Hours for Pain Active Ayo 08/04/2018 [facility] Loperamide Hcl (Imodium*) 2 Mg Cap Three Times A Day as needed for Diarrhea Active Ayo 08/04/2018 [facility] Vancomycin Hcl (Vancocin Hcl) 250 Mg Capsule Every 6 Hours Active Ayo 08/04/2018 [facility] Allopurinol 300 Mg Tablet Daily Active [place] 06/28/2018 [facility] Amitriptyline Hcl 25 Mg Tablet Bedtime Active [place] 06/28/2018 [facility] Clonidine Hcl (Catapres) 0.1 Mg Tablet Every 8 Hours as needed for Sbp>160 Active [place] 06/28/2018 [facility] Furosemide (Lasix) 40 Mg Tablet Daily Active [place] 06/28/2018 [facility] Insulin Aspart (Novolog) 100 Units/1 Ml Inj Every 6 Hours Active SLIDING SCALE: 150-200 3 UNITS 201-250 6 UNITS 251-300 9 UNITS 301-350+ 12 UNITS [place] 06/28/2018 [facility] Lactobacillus Acidophilus (Acidophilus) 1 Each Tab.chew Twice A Day Active [place] 06/28/2018 [facility] Levothyroxine Sodium (Synthroid) 75 Mcg Tab Daily@06 Active [place] 06/28/2018 [facility] Lorazepam 0.5 Mg Tablet Three Times A Day as needed for Anxiety Active [place] 06/28/2018 [facility] Metoclopramide Hcl (Reglan) 5 Mg Tablet Three Times A Day Active [place] 06/28/2018 [facility] Mucomyst Twice A Day as needed for Thick Secretions Active 10% MIX WITH ALBUTEROL [place] 06/28/2018 [facility] Potassium Chloride (K Dur*) 10 Meq Tabcr Daily Active [place] 06/28/2018 [facility] Sitagliptin Phosphate (Januvia) 100 Mg Tablet Daily Active [place] 06/28/2018 [facility] Acetaminophen With Codeine (Tylenol With Codeine #3 Tablet) 1 Each Tablet, 300 Mg Oral Every 6 Hours for Pain Active [place] 06/28/2018 [facility] Allopurinol 300 Mg Tablet, 100 Mg Oral Daily Active 06/28/2018 [facility] Amitriptyline Hcl 25 Mg Tablet, 25 Mg Oral Bedtime Active 06/28/2018 [facility] Budesonide (Budesonide Ec) 3 Mg Capdr...er, 3 Mg Inhalation Daily Active 06/28/2018 [facility] Cholestyramine (Cholestyramine Light Packet) 4 Gm Pack, 4 Gm Oral Twice A Day as needed for Diarrhea Active [place] 06/28/2018 [facility] Furosemide (Lasix) 40 Mg Tablet, 40 Mg Oral Daily Active 06/28/2018 [facility] Lactobacillus Acidophilus (Acidophilus) 1 Each Tab.chew, 1 Tab Oral Daily Active 06/28/2018 [facility] Levothyroxine Sodium 50 Mcg Tablet, 50 Mcg Oral Daily Active 06/28/2018 [facility] Levothyroxine Sodium (Synthroid) 50 Mcg Tab, 50 Mcg Oral Today At 6:30AM Active 06/28/2018 [facility] Loperamide Hcl (Imodium*) 2 Mg Cap, 2 Mg Peg Tube Three Times A Day as needed for Diarrhea Active [place] 06/28/2018 [facility] Lorazepam 0.5 Mg Tablet, 0.5 Mg Peg Tube Three Times A Day as needed for Anxiety Active 06/28/2018 [facility] Lorazepam 0.5 Mg Tablet, 0.5 Mg Oral Every 8 Hours for Anxiety Active 06/28/2018 [facility] Metoclopramide Hcl (Reglan) 5 Mg Tablet, 5 Mg Peg Tube Three Times A Day Active 06/28/2018 [facility] Metoclopramide Hcl 5 Mg/5 Ml Solution, 5 Mg Peg Tube Three Times A Day Active 06/28/2018 [facility] Simethicone 80 Mg Chew, 80 Mg Oral After Meals And At Bedtime as needed for Gas Active [place] 06/28/2018 [facility] Sitagliptin Phosphate (Januvia) 100 Mg Tablet, 50 Mg Oral Daily Active 06/28/2018 [facility] Vancomycin Hcl (Vancocin Hcl) 250 Mg Capsule, 250 Mg Oral Every 6 Hours Active [place] 06/28/2018 [facility] Cholestyramine (Cholestyramine Light Packet) 4 Gm Pack, 4 Gm Oral Twice A Day as needed for Diarrhea Active [place] 06/06/2018 [facility] Lactobac Cmb #3/Fos/Pantethine (Probiotic & Acidophilus Cap) 1 Each Capsule, 1 Cap Peg Tube Every 8 Hours Active 06/06/2018 [facility] Acetaminophen With Codeine (Tylenol With Codeine #3 Tablet) 1 Each Tablet, 300 Mg Oral Every 4 Hours as needed for Pain Active 04/17/2018 [facility] Allopurinol 100 Mg Tablet, 100 Mg Oral Daily Active 04/17/2018 [facility] Amitriptyline Hcl 25 Mg Tablet, 25 Mg Oral Bedtime Active 04/17/2018 [facility] Clonidine Hcl (Catapres) 0.1 Mg Tablet, 0.1 Mg Oral Every 8 Hours as needed for Sbp>160 Active [place] 04/15/2018 [facility] Mucomyst , 4 Ml Nebullizer Twice A Day as needed for Thick Secretions Active [place] 04/15/2018 [facility] Calcium Otc , 500 Mg Does Not Apply Active 04/13/2018 [facility] Dicyclomine Hcl 20 Mg Tablet, 20 Mg Oral Four Times Daily Active 04/13/2018 [facility] Famotidine (Pepcid) 20 Mg Tablet, 40 Mg Peg Tube Twice A Day Active 04/13/2018 [facility] Insulin Aspart (Novolog) 100 Units/1 Ml Inj, 0 Sub-Q Every 6 Hours Active [place] 04/13/2018 [facility] Novolog Ss , Active 04/13/2018 [facility] Potassium Chloride (K Dur*) 10 Meq Tabcr, 20 Meq Oral Daily Active [place] 04/13/2018 [facility] Balsam [place] Oil (Venelex Ointment) 60 Gm Oint...g., 60 Gm Topical Twice A Day Active [place] 03/26/2018 [facility] Dextrose (Dextrose 50%-Water Syringe) 50 Ml Inj, 50 Ml Intraven As Needed as needed for Blood Sugar Active [place] 03/26/2018 [facility] Levalbuterol Hcl (Xopenex) 1.25 Mg/3 Ml Vial.neb, 1.25 Mg Inhalation Rt Q6h Active [place] 03/26/2018 [facility] Lorazepam 2 Mg/1 Ml Vial, 1 Mg Intraven Every 6 Hours as needed for Agitation Active [place] 03/26/2018 [facility] Ascorbic Acid 500 Mg Tablet Twice A Day Active [place] 03/09/2018 [facility] Metoprolol Tartrate (Lopressor) 25 Mg Tab Every 12 Hours Active [place] 03/09/2018 [facility] Cholestyramine (Cholestyramine Light Packet) 4 Gm Pack, 4 Gm Oral Twice A Day as needed for Diarrhea Active [place] 03/09/2018 [facility] Ferrous Sulfate 325 Mg Tablet, 325 Mg Peg Tube Twice Daily With Meals Active [place] 03/09/2018 [facility] Metronidazole (Flagyl) 250 Mg Tablet, 500 Mg Peg Tube Every 8 Hours Active 03/09/2018 [facility] Vancomycin Hcl (Vancocin Hcl) 250 Mg Capsule, 250 Mg Oral Every 6 Hours Active [place] 03/09/2018 [facility] Ipratropium/Albuterol Sulfate (Combivent Respimat Inhal [place]) 4 Gm Aer.w.adap, 4 Gm Inhalation Every 6 Hours While Awake Active 02/24/2018 [facility] Metformin Hcl 500 Mg Tablet, 1000 Mg Oral Twice A Day Active 02/24/2018 [facility] Potassium Chloride 10 Meq Tab.er.prt, 10 Meq Oral Twice A Day Active 02/24/2018 [facility] Prednisone 20 Mg Tab, 20 Mg Oral Daily Active 02/24/2018 [facility] Acetaminophen 325 Mg Tablet Every 4 Hours as needed for Pain And Temperature Active [place] 01/20/2018 [facility] Balsam [place] Oil (Venelex Ointment) 60 Gm Oint...g. Daily Active [place] 01/20/2018 [facility] Ipratropium [place] 0.2 Mg/1 Ml Solution Rt Q6h Active [place] 01/20/2018 [facility] Levalbuterol Hcl (Xopenex) 0.63 Mg/3 Ml Vial.neb Rt Q6h as needed for Shorntess Of Breath Active [place] 01/20/2018 [facility] Simethicone 80 Mg Chew After Meals And At Bedtime as needed for Gas Active [place] 01/20/2018 [facility] Calcium Carbonate 500 Mg Tab, 500 Mg Oral Daily Active [place] 01/20/2018 [facility] Cholestyramine (Cholestyramine Light Packet) 4 Gm Pack, 4 Gm Oral Twice A Day as needed for Diarrhea Active [place] 01/20/2018 [facility] Guaifenesin (Mucinex) 600 Mg Tablet.er, 600 Mg Oral Every 6 Hours Active [place] 01/20/2018 [facility] Insulin Regular, Human (Humulin R) 100 Unit/1 Ml Vial, 0 Unit Sub-Q Every 6 Hours Active [place] 01/20/2018 [facility] Levalbuterol Hcl (Xopenex) 0.63 Mg/3 Ml Vial.neb, 0.63 Mg Inhalation Rt Q4h Active [place] 01/20/2018 [facility] Magnesium Oxide 400 Mg Tablet, 400 Mg Oral Twice A Day Active [place] 01/20/2018 [facility] Metoprolol Succinate (Toprol Xl) 25 Mg Tab.er.24h, 12.5 Mg Oral Daily Active [place] 01/20/2018 [facility] Neomy Sulf/Bacitrac Zn/Poly (Triple Antibiotic Ointment) 28 Gm Oint...g., 0 Gm Topically Three Times A Day Active [place] 01/20/2018 [facility] Pantoprazole Sod (Protonix) 40 Mg/Ml Susp, 40 Mg Oral Daily Active [place] 01/20/2018 [facility] Saline 0.65% Gregorio Soln 1 [place] Soln, 0 [place] Nasal Every 4 Hours While Awake Active [place] 01/20/2018 [facility] Allergies, Adverse Reactions, Alerts Substance Category Reaction Severity Reaction type Status Date Reported Comments Source Penicillin Unknown Allergy to Substance Active 06/21/2018 [facility] Titanium Unknown Allergy to Substance Active 06/21/2018 [facility] Heparin Unknown Allergy to Substance Active 06/21/2018 [facility] Immunizations No Data Provided for This Section Results Order Name Results Value Reference Range Date Interpretation Comments Source Capillary blood glucose measurement by glucometer (mass/volume) 104 70 - 120 08/16/2018 [facility] Blood leukocytes automated count (number/volume) 6.60 4.8 - 10.8 08/15/2018 [facility] Blood erythrocytes automated count (number/volume) 3.38 3.6 - 5.1 08/15/2018 [facility] Blood hemoglobin measurement (moles/volume) 9.6 12.0 - 16.0 08/15/2018 [facility] Automated blood hematocrit (volume fraction) 29.9 34.2 - 44.1 08/15/2018 [facility] Automated erythrocyte mean corpuscular volume 88.5 81 - 99 08/15/2018 [facility] Automated erythrocyte mean corpuscular hemoglobin (mass per erythrocyte) 28.4 28 - 32 08/15/2018 [facility] Automated erythrocyte mean corpuscular hemoglobin concentration measurement (mass/volume) 32.1 31 - 35 08/15/2018 [facility] RDW BldCo-Rto 16.4 11.7 - 14.4 08/15/2018 [facility] Automated blood platelet count (count/volume) 55 140 - 360 08/15/2018 [facility] Automated blood segmented neutrophil count as percentage of total leukocytes 65.8 38.7 - 80.0 08/15/2018 [facility] Automated blood lymphocyte count as percentage ot total leukocytes 22.4 18.0 - 39.1 08/15/2018 [facility] Automated blood monocyte count as percentage of total leukocytes 7.7 4.4 - 11.3 08/15/2018 [facility] Automated blood eosinophil count as percentage of total leukocytes 2.9 0.0 - 6.0 08/15/2018 [facility] Automated blood basophil count as percentage of total leukocytes 0.3 0.0 - 1.0 08/15/2018 [facility] IM GRANULOCYTES % 0.9 0.0 - 1.0 08/15/2018 [facility] Automated blood neutrophil count 4.3 2.1 - 6.9 08/15/2018 [facility] Blood lymphocytes count (number/volume) 1.5 1.0 - 3.2 08/15/2018 [facility] Blood monocytes automated count (number/volume) 0.5 0.2 - 0.8 08/15/2018 [facility] Automated blood eosinophil count 0.2 0.0 - 0.4 08/15/2018 [facility] Automated blood basophil count (count/volume) 0.0 0.0 - 0.1 08/15/2018 [facility] Absolute Immature Granulocyte (auto 0.06 0 - 0.1 08/15/2018 [facility] Serum or plasma sodium measurement (moles/volume) 136 136 - 145 08/15/2018 [facility] Serum or plasma potassium measurement (moles/volume) 3.9 3.5 - 5.1 08/15/2018 [facility] Serum or plasma chloride measurement (moles/volume) 100 98 - 107 08/15/2018 [facility] Serum or plasma carbon dioxide, total measurement (moles/volume) 28 22 - 29 08/15/2018 [facility] Serum or plasma anion gap 11.9 8 - 16 08/15/2018 [facility] Serum or plasma urea nitrogen measurement (mass/volume) 11 7 - 26 08/15/2018 [facility] Serum or plasma creatinine measurement (mass/volume) 0.59 0.57 - 1.11 08/15/2018 [facility] Serum or plasma urea nitrogen/creatinine mass ratio 19 6 - 25 08/15/2018 [facility] Estimated glomerular filtration rate (GFR) determination > 60 60 08/15/2018 [facility] Glucose measurement 105 74 - 118 08/15/2018 [facility] Serum or plasma calcium measurement (mass/volume) 9.1 8.4 - 10.2 08/15/2018 [facility] Serum or plasma magnesium measurement (mass/volume) 1.4 1.3 - 2.1 08/15/2018 [facility] BNP Bld-mCnc 92.3 0 - 100 08/15/2018 [facility] Stool gastrointestinal hemoglobin detection NEGATIVE NEGATIVE 08/14/2018 [facility] Clostridium difficile A and B toxin assay NEGATIVE NEGATIVE 08/14/2018 [facility] Serum or plasma iron measurement (mass/volume) 60 50 - 170 08/14/2018 [facility] Serum or plasma iron binding capacity measurement (mass/volume) 140 261 - 478 08/14/2018 [facility] Serum or plasma iron saturation measurement (mass fraction) 43 15 - 50 08/14/2018 [facility] Serum or plasma transferrin measurement (mass/volume) 100 180 - 382 08/14/2018 [facility] Serum or plasma ferritin measurement (mass/volume) 138.64 4.63 - 204.00 08/14/2018 [facility] Blood cobalamin (vitamin B12) measurement (mass/volume) 740 213 - 816 08/14/2018 [facility] Serum or plasma folate measurement (mass/volume) 5.7 7.0 - 15.4 08/14/2018 [facility] Differential Total Cells Counted 100 08/13/2018 [facility] Manual blood neutrophils/100 leukocytes 64 40 - 74 08/13/2018 [facility] Manual blood lymphocytes/100 leukocytes 28 19 - 48 08/13/2018 [facility] Manual blood monocytes/100 leukocytes 8 3.4 - 9.0 08/13/2018 [facility] Blood platelets count by estimate (number/volume) MARKEDLY DECREASED 08/13/2018 [facility] Platelet morphology NORMAL 08/13/2018 [facility] RBC morphology NORMAL 08/13/2018 [facility] Erythrocyte sedimentation rate by Westergren method 29 0 - 20 08/13/2018 [facility] Automated reticulocyte count as percentage of total erythrocytes 1.5 0.8 - 2.2 08/13/2018 [facility] Serum or plasma total bilirubin measurement (mass/volume) 0.3 0.2 - 1.2 08/13/2018 [facility] Serum or plasma conjugated bilirubin measurement (mass/volume) 0.2 0.0 - 0.5 08/13/2018 [facility] Aspartate Amino Transf (AST/SGOT) 12 5 - 34 08/13/2018 [facility] Serum or plasma alanine aminotransferase measurement (enzymatic activity/volume) 6 0 - 55 08/13/2018 [facility] Serum or plasma protein measurement (mass/volume) 5.1 6.5 - 8.1 08/13/2018 [facility] Serum or plasma albumin measurement (mass/volume) 2.3 3.5 - 5.0 08/13/2018 [facility] Plasma globulin measurement (mass/volume) 2.9 2.3 - 3.5 08/13/2018 [facility] Serum or plasma albumin/globulin mass ratio 0.8 0.8 - 2.0 08/13/2018 [facility] Serum or plasma alkaline phosphatase measurement (enzymatic activity/volume) 68 40 - 150 08/13/2018 [facility] Serum or plasma creatine kinase measurement (enzymatic activity/volume) 15 29 - 168 08/13/2018 [facility] Serum or plasma creatine kinase MB measurement (mass/volume) 0.50 0 - 5.0 08/13/2018 [facility] Troponin I measurement by highly sensitive enzyme immunoassay 0.013 0 - 0.300 08/13/2018 [facility] Bacteria identification in sputum by respiratory culture Organism: PSEUDOMONAS AERUGINOSA 08/12/2018 [facility] Blood culture NO GROWTH AFTER 72 HOURS 08/12/2018 [facility] Lactic Acid Level 9.3 4.5 - 19.8 07/30/2018 [facility] Urine color determination YELLOW YELLOW 07/30/2018 [facility] Urine clarity TURBID CLEAR 07/30/2018 [facility] Specific gravity of Urine by Test strip 1.030 1.010 - 1.025 07/30/2018 [facility] Urine pH measurement by automated test strip 6 5 - 7 07/30/2018 [facility] Urine leukocyte esterase detection by dipstick 2+ NEGATIVE 07/30/2018 [facility] Urine nitrite detection POSITIVE NEGATIVE 07/30/2018 [facility] Urine protein measurement by test strip (mass/volume) 1+ NEGATIVE 07/30/2018 [facility] Urine glucose detection NEGATIVE NEGATIVE 07/30/2018 [facility] Urine ketones detection by automated test strip TRACE NEGATIVE 07/30/2018 [facility] Urine urobilinogen measurement by test strip (mass/volume) 0.2 0.2 - 1 07/30/2018 [facility] Urine total bilirubin measurement (mass/volume) NEGATIVE NEGATIVE 07/30/2018 [facility] Urine erythrocytes detection TRACE NEGATIVE 07/30/2018 [facility] Automated urine sediment leukocyte count by microscopy (number/high power field) >50 0 - 5 07/30/2018 [facility] Erythrocytes detection in urine sediment by light microscopy 6-10 0 - 5 07/30/2018 [facility] Bacteria detection in urine sediment by light microscopy MANY NONE 07/30/2018 [facility] Epithelial cells detection in urine sediment by light microscopy MODERATE NONE 07/30/2018 [facility] Influenza virus A and B antigen identification by immunofluorescence NEGATIVE NEGATIVE 07/30/2018 [facility] Manual blood eosinophil count as percentage of total leukocytes 1 0 - 7 06/28/2018 [facility] Serum or plasma uric acid measurement (mass/volume) 6.0 2.5 - 7.0 06/28/2018 [facility] Blood hypochromia detection by light microscopy SLIGHT 06/27/2018 [facility] Blood anisocytosis detection by light microscopy SLIGHT 06/27/2018 [facility] Blood microcytes detection by light microscopy SLIGHT 06/27/2018 [facility] Stool calprotectin measurement (mass/mass) 1960 0 - 120 06/25/2018 [facility] Serum or plasma thyroxine (T4) free measurement (mass/volume) 0.98 0.9 - 1.8 06/24/2018 [facility] Serum or plasma thyrotropin measurement by detection limit <=0.005 miu/l (units/volume) 5.255 0.350 - 4.940 06/24/2018 [facility] Blood polychromasia detection by light microscopy R 06/23/2018 [facility] Blood poikilocytosis detection by light microscopy SLIGHT 06/23/2018 [facility] Serum or plasma prealbumin measurement (mass/volume) 18 10 - 36 06/22/2018 [facility] Amorphous sediment detection in urine sediment by light microscopy MODERATE FEW 06/21/2018 [facility] Serum or plasma amylase measurement (enzymatic activity/volume) 19 25 - 125 06/21/2018 [facility] Serum or plasma lipase measurement (enzymatic activity/volume) 15 8 - 78 06/21/2018 [facility] Manual blood band neutrophils form/100 leukocytes 1 06/06/2018 [facility] Manual basophil percentage 1 0 - 1.5 06/06/2018 [facility] Manual blood myelocytes/100 leukocytes 2 0 - 0 06/06/2018 [facility] Blood toxic granules detection by light microscopy SLIGHT 06/06/2018 [facility] Blood lymphocytes variant count (number/volume) 4 06/02/2018 [facility] Bacterial blood culture Organism: STAPHYLOCOCCUS SP COAG NEG 06/01/2018 [facility] Prothrombin time (PT) in platelet poor plasma by coagulation assay 13.3 11.9 - 14.5 05/14/2018 [facility] INR in Platelet poor plasma by Coagulation assay 1.09 05/14/2018 [facility] Activated partial thromboplastin time (aPTT) in platelet poor plasma bycoagulation assay 27.3 23.8 - 35.5 05/14/2018 [facility] Blood platelet clump detection by light microscopy NONE NONE 04/11/2018 [facility] Manual blood metamyelocytes/100 leukocytes 1 0 - 0 03/07/2018 [facility] Arterial blood pH measurement 7.42 7.31 - 7.41 03/04/2018 [facility] pCO2 BldA 44 41 - 51 03/04/2018 [facility] pCO2 BldA 69 80 - 105 03/04/2018 [facility] Arterial blood bicarbonate measurement (moles/volume) 29 23 - 28 03/04/2018 [facility] Arterial blood base excess by calculation 4.0 -2 - 3 - 2 03/04/2018 [facility] Arterial blood oxygen saturation measurement 94.0 95 - 98 03/04/2018 [facility] FiO2 40 03/04/2018 [facility] Serum or plasma triglyceride measurement (mass/volume) 124 0 - 149 02/27/2018 [facility] Serum or plasma cholesterol measurement (mass/volume) 119 0 - 199 02/27/2018 [facility] Serum or plasma cholesterol in LDL measurement (mass/volume) 44 60 - 130 02/27/2018 [facility] Serum or plasma cholesterol in HDL measurement (mass/volume) 50 40 - 60 02/27/2018 [facility] Serum or plasma total cholesterol/cholesterol in HDL mass ratio 2.4 3.0 - 3.6 02/27/2018 [facility] Bacteria identification in sputum by respiratory culture Organism: PSEUDOMONAS AERUGINOSA 02/26/2018 [facility] Phosphorus measurement 3.5 2.3 - 4.7 02/26/2018 [facility] Serum or plasma 25-hydroxyvitamin D measurement (mass/volume) 23 . 02/26/2018 [facility] Serum or plasma 25-hydroxycalciferol measurement (mass/volume) 22 . 02/26/2018 [facility] Serum or plasma calcidiol measurement (mass/volume) <1.0 . 02/26/2018 [facility] Giant platelet detection RARE 02/25/2018 [facility] Hemoglobin A1c Percent 5.6 4.0 - 7.0 02/25/2018 [facility] Mixed venous blood pH measurement 7.447 7.32 - 7.42 02/10/2018 [facility] Mixed venous blood partial pressure of carbon dioxide measurement at point of care 43.8 40 - 50 02/10/2018 [facility] Mixed venous blood partial pressure of carbon dioxide measurement 37 38 - 42 02/10/2018 [facility] Bicarbonate measurement in mixed venous blood (moles/volume) 30.2 22 - 26 02/10/2018 [facility] Base excess in Mixed venous blood by calculation 6 -5-3 - 5 02/10/2018 [facility] Mixed venous blood oxygen (O2) saturation measurement 72 70 - 75 02/10/2018 [facility] Blood hypersegmented neutrophils detection by light microscopy FEW 01/20/2018 [facility] Blood smudge cells detection by light microscopy FEW 01/16/2018 [facility] Blood stomatocytes detection by light microscopy SLIGHT 01/09/2018 [facility] Blood Randle-Terral bodies detection by light microscopy FEW 01/09/2018 [facility] Elliptocyte detection SLIGHT 01/09/2018 [facility] Blood nucleated erythrocytes count (number/volume) 4 01/06/2018 [facility] Blood target cells detection by light microscopy FEW 01/06/2018 [facility] Fibrin D-dimer DDU measurement in platelet poor plasma (mass/volume) 3.57 0.00 - 0.45 01/06/2018 [facility] Bacterial urine culture Urine Culture [facility] Pathology Reports No Data Provided for [...] Date DC Date Status Source Registered Referred [id number] ILAN SALCEDO MD 10/25/2017 [facility] Discharged Inpatient [id number] ILAN SALCEDO MD 01/06/2018 01/20/2018 [facility] Departed Emergency Room [id number] NATHANIEL SANTACRUZ DO 02/10/2018 02/11/2018 [facility] Discharged Inpatient [id number] ILAN SALCEDO MD 02/26/2018 03/09/2018 [facility] Discharged Inpatient [id number] ILAN SALCEDO MD 03/25/2018 03/26/2018 [facility] Departed Emergency Room [id number] JENN MILLER MD 04/07/2018 04/07/2018 [facility] Discharged Inpatient [id number] ILAN SALCEDO MD 04/14/2018 04/17/2018 [facility] Departed Emergency Room [id number] JENN MILLER MD 05/14/2018 05/14/2018 [facility] Discharged Inpatient [id number] ILAN SALCEDO MD 06/01/2018 06/06/2018 [facility] Discharged Inpatient [id number] ILAN SALCEDO MD 06/21/2018 06/28/2018 [facility] Discharged Inpatient [id number] ILAN SALCEDO MD 07/31/2018 08/04/2018 [facility] Discharged Inpatient [id number] ILAN SALCEDO MD 08/12/2018 08/16/2018 [facility] Procedures Procedure Code Date Perfomer Comments Source US abdomen complete [id number] 08/13/2018 [facility] Esophagogastroduodenoscopy (EGD) with placement of percutaneous endoscopic gastrostomy (PEG) [id number] 08/01/2018 [facility] Computed tomography of abdomen and pelvis with contrast [id number] 06/21/2018 [facility] CHANGE FEEDING DEVICE IN UP INTEST TRACT, PHARMACY AFFAIRS ASSISTANT APPROACH [id number] 06/05/2018 [facility] Computed tomography of brain without radiopaque contrast [id number] 06/03/2018 [facility] REVISION OF TRACHEOSTOMY DEVICE IN TRACHEA, PHARMACY AFFAIRS ASSISTANT APPROACH [id number] 03/26/2018 [facility] DILATION OF TRACHEA, ENDO [id number] 03/03/2018 [facility] CHANGE TRACHEOSTOMY DEVICE IN TRACHEA, EXTERNAL APPROACH [id number] 03/03/2018 [facility] DRAINAGE OF L PLEURAL CAV WITH DRAIN DEV, PERC APPROACH [id number] 03/03/2018 [facility] Computed tomography of soft tissues of neck without contrast [id number] 03/01/2018 [facility] RESPIRATORY VENTILATION, LESS THAN 24 CONSECUTIVE HOURS [id number] 02/27/2018 [facility] BYPASS TRACHEA TO CUTANEOUS WITH TRACH DEV, OPEN APPROACH [id number] 01/13/2018 [facility] INSPECTION OF LARYNX, ENDO [id number] 01/13/2018 [facility] INSERTION OF INFUSION DEV INTO SUP VENA CAVA, PERC APPROACH [id number] 01/13/2018 [facility] RESPIRATORY VENTILATION, 24-96 CONSECUTIVE HOURS [id number] 01/11/2018 [facility] INSERTION OF ENDOTRACHEAL AIRWAY INTO TRACHEA, VIA OPENING [id number] 01/11/2018 CEZAR [facility] INSPECTION OF TRACHEOBRONCHIAL TREE, ENDO [id number] 01/11/2018 EDDIE [facility] Computed tomography of chest with contrast [id number] 01/06/2018 ANGELA [facility] Assessment and Plan No Data Provided for This Section Plan of Care Plan of Care Date Source Discharge Date 08/16/18 6:50pm Disposition HOME HEALTH SERVICE Prescriptions See Medication Section Additional Instructions/Education f/u with PCP in 1-2 weeks f/u with Dr Kerns as discussed 08/16/2018 [facility] Social History Social History Date Source [...] 02/24/2018 6:14pm Not Applicable Not Applicable 08/16/2018 [facility] Family History No Data Provided for This Section Advance Directives Order Name Results Value Date Source Advance Directives Advance Directives Directive Response Recorded Date/Time Does the patient have an advance directive? No 08/12/18 9:02am If yes, is advance directive on file with [facility]? No 08/12/18 9:02am If not on file with [facility] will patient provide a copy? No 08/12/18 9:02am Do you have a Directive to Physician? No 08/12/18 6:18am Do you have a Medical Power of Refund Clerk? No 08/12/18 6:18am Do you have an [...] rights and responsibilities? No 08/12/18 6:18am 08/16/2018 [facility] Functional Status No Data Provided for This Section
[2019-06-14] MEDS ORDERED: ALBUTEROL SULF 0.083% NEB SOLN 3 ML NEB NEB STA (18:55)
[2019-06-14] MEDS ORDERED: IPRATROPIUM BROMIDE 0.02% 2.5 ML NEB NEB STA (18:55)
--- NOTE | 2019-06-14 19:14 | Diagnostic Imaging Report ---
A single frontal view of the chest. HISTORY: Respiratory distress COMPARISON: Chest radiograph May 07, 2019 DISCUSSION: Portable technique, limits sensitivity of the exam. Soft tissue attenuation partially limits sensitivity of the exam. Overlying artifacts. Tubes/Lines: Unchanged tracheostomy tube. Lungs and pleura: Mild prominence of the central peribronchial markings. No evidence of a consolidative pneumonia or pulmonary alveolar edema. No definite pleural effusion or pneumothorax is identified. Heart and mediastinum: The cardiomediastinal silhouette appear(s) unremarkable. Bones and soft tissues: Severe bilateral degenerative changes of the glenohumeral joints. IMPRESSION: 1. Findings which could be seen in the setting of a nonspecific bronchitis and/or aspiration. 2. No consolidative pneumonia.. Signed by: Dr. Eric Matta D.O., M.M.M. on 06/14/2019 7:11 PM
--- NOTE | 2019-06-14 19:18 | NUR ---
[facility] CALLED BY MARIA M PEACE; ETA APPROX 1 HR.
[2019-06-14 19:49] VITALS: BP 115/55
== END 2019-06-14 19:54 | disposition home or self-care (01) ==
LOC: ER 17:40
DX: R06.09 Other forms of dyspnea (principal); I10 Essential (primary) hypertension; E11.9 Type 2 diabetes mellitus without complications; E03.9 Hypothyroidism, unspecified; K21.9 Gastro-esophageal reflux disease without esophagitis; F41.9 Anxiety disorder, unspecified
CPT/HCPCS: 71045; 94640; 99283

== ENCOUNTER 2019-07-10 19:29 | Inpatient (IN) | payer MEDICARE ==
[~2019-07-10] VITALS: Ht 172.7 cm; Wt 72.6 kg
--- NOTE | 2019-07-10 20:02 | Diagnostic Imaging Report ---
EXAMINATION: CHEST SINGLE (PORTABLE) INDICATION: Hemoptysis ^hemoptysis ^[id number] ^1952 ^Y COMPARISON: 06/14/2019 DISCUSSION: Portable technique, limits sensitivity of the exam. Soft tissue attenuation partially limits sensitivity of the exam. Overlying artifacts. Tubes/Lines: Unchanged tracheostomy tube. Lungs and pleura: Mild prominence of the central peribronchial markings. No evidence of a consolidative pneumonia or pulmonary alveolar edema. No definite pleural effusion or pneumothorax is identified. Heart and mediastinum: The cardiomediastinal silhouette appear(s) unremarkable. Bones and soft tissues: Severe bilateral degenerative changes of the glenohumeral joints. IMPRESSION: 1. Findings which could be seen in the setting of a nonspecific bronchitis and/or aspiration. 2. No consolidative pneumonia.. Signed by: Dr. Hayes Givens M.D. on 07/10/2019 7:59 PM
[2019-07-10 20:14] LABS: BASOPHILS % 0.5 % (0.0-1.0); EOSINOPHILS # (AUTO) 0.2 (0.0-0.4); EOSINOPHILS % 3.2 % (0.0-6.0); LYMPHOCYTES # (AUTO) 1.8 (1.0-3.2); LYMPHOCYTES % 32.6 % (18.0-39.1); MEAN CORPUSCULAR HEMOGLOBIN 29.8 pg (28-32); MEAN CORPUSCULAR HGB CONC 31.4 g/dL (31-35); MEAN CORPUSCULAR VOLUME 94.9 fL (81-99); MONOCYTES # (AUTO) 0.4 (0.2-0.8); MONOCYTES % 6.8 % (4.4-11.3); NEUTROPHILS # (AUTO) 3.1 (2.1-6.9); NEUTROPHILS % 56.7 % (38.7-80.0); RED BLOOD COUNT 3.69 x10e6/uL (3.6-5.1); RED CELL DISTRIBUTION WIDTH 11.3 % (11.7-14.4)
[2019-07-10 20:17] LABS: PLATELET COUNT 37 x10e3/uL (140-360)
--- NOTE | 2019-07-10 20:18 | NUR ---
DR. CIFUENTES NOTIFIED AND AWARE OF CRITICAL LAB VALUE; PLT 37.
[2019-07-10 20:21] LABS: INR 0.98; PROTHROMBIN TIME 13.5 seconds (11.9-14.5)
[2019-07-10 20:22] LABS: PARTIAL THROMBOPLASTIN TIME 28.9 seconds (23.8-35.5)
[2019-07-10 20:31] LABS: ALANINE AMINOTRANSFERASE 9 IU/L (0-55); ALBUMIN 3.6 g/dL (3.5-5.0); ALBUMIN/GLOBULIN RATIO 1.2 (0.8-2.0); ALKALINE PHOSPHATASE 106 IU/L (40-150); ANION GAP 12.9 mmol/L (8-16); BLOOD UREA NITROGEN 15 mg/dL (7-26); BUN/CREATININE RATIO 20 (6-25); CALCIUM 10.5 mg/dL (8.4-10.2); CARBON DIOXIDE 25 mmol/L (22-29); CHLORIDE 107 mmol/L (98-107); CREATININE, SERUM 0.74 mg/dL (0.57-1.11); EST GLOMERULAR FILTRATION RATE > 60 ML/MIN (60-); GLUCOSE 84 mg/dL (74-118); POTASSIUM 3.9 mmol/L (3.5-5.1); SODIUM 141 mmol/L (136-145)
[2019-07-10] MEDS ORDERED: ONDANSETRON HCL INJ 2MG/ML 2ML 2 MG/ML VIAL IV PRN (21:15)
[2019-07-10 23:00] VITALS: BP 90/70
[2019-07-10] MEDS: LEVOFLOXACIN 500MG/D5W 100ML 100 ML IV SCH (23:00)
[2019-07-10] MEDS: ALBUTEROL/IPRATROPIUM 3 ML NEB NEB SCH (23:00)
[2019-07-10] MEDS: SODIUM CHLORIDE 0.9% 1000ML 1,000 ML IV SCH (23:00)
[2019-07-10] MEDS ORDERED: PNEUMOCOCCAL VACCINE POLYVALENT 23 MCG/0.5 ML VIAL IM SCH (23:28)
[2019-07-10 23:31] VITALS: BP 90/70
[2019-07-11] VITALS (8 sets, daily range): BP systolic 96–117; BP diastolic 43–92
[2019-07-11] MEDS: ALBUTEROL/IPRATROPIUM 3 ML NEB NEB SCH ×2 (02:15→07:15)
[2019-07-11 05:36] LABS: BASOPHILS % 0.3 % (0.0-1.0); EOSINOPHILS # (AUTO) 0.2 (0.0-0.4); EOSINOPHILS % 2.9 % (0.0-6.0); HEMATOCRIT 33.4 % (34.2-44.1); HEMOGLOBIN 10.6 g/dL (12.0-16.0); LYMPHOCYTES # (AUTO) 1.5 (1.0-3.2); LYMPHOCYTES % 25.2 % (18.0-39.1); MEAN CORPUSCULAR HEMOGLOBIN 30.1 pg (28-32); MEAN CORPUSCULAR HGB CONC 31.7 g/dL (31-35); MEAN CORPUSCULAR VOLUME 94.9 fL (81-99); MONOCYTES # (AUTO) 0.3 (0.2-0.8); MONOCYTES % 5.3 % (4.4-11.3); NEUTROPHILS # (AUTO) 3.9 (2.1-6.9); RED BLOOD COUNT 3.52 x10e6/uL (3.6-5.1); RED CELL DISTRIBUTION WIDTH 11.5 % (11.7-14.4)
[2019-07-11] MEDS: SODIUM CHLORIDE 0.9% 1000ML 1,000 ML IV SCH ×2 (05:54→13:14)
[2019-07-11 05:57] LABS: ALANINE AMINOTRANSFERASE 10 IU/L (0-55); ALBUMIN 3.1 g/dL (3.5-5.0); ALKALINE PHOSPHATASE 98 IU/L (40-150); ANION GAP 11.9 mmol/L (8-16); BLOOD UREA NITROGEN 13 mg/dL (7-26); BUN/CREATININE RATIO 18 (6-25); CALCIUM 10.2 mg/dL (8.4-10.2); CARBON DIOXIDE 25 mmol/L (22-29); CHLORIDE 108 mmol/L (98-107); CREATININE, SERUM 0.74 mg/dL (0.57-1.11); EST GLOMERULAR FILTRATION RATE > 60 ML/MIN (60-); GLUCOSE 83 mg/dL (74-118); POTASSIUM 3.9 mmol/L (3.5-5.1); SODIUM 141 mmol/L (136-145)
[2019-07-11 06:15] LABS: PLATELET COUNT 34 x10e3/uL (140-360)
[2019-07-11 06:27] LABS: PLATELET ESTIMATE MARKEDLY DECREASED
[2019-07-11 06:29] LABS: RBC MORPHOLOGY COMMENT NORMAL
[2019-07-11] MEDS ORDERED: ACETAMINOPHEN/CODEINE 300MG - 30MG TAB PO PRN (07:45)
[2019-07-11] MEDS ORDERED: ALBUTEROL/IPRATROPIUM 3 ML NEB NEB PRN (07:45)
[2019-07-11] MEDS ORDERED: CLONIDINE HCL 0.1 MG TAB PO PRN (07:45)
--- NOTE | 2019-07-11 08:20 | Diagnostic Imaging Report ---
Chest, 1 view, 07/11/2019. History: Hemoptysis. Comparison: 07/10/2019. Findings: The cardiomediastinal silhouette and pulmonary vasculature are within normal limits for a portable exam. There is no focal consolidation or pleural effusion. Tracheotomy tube is again noted. Severe degenerative changes of the shoulders are present. There are no acute osseous or soft tissue abnormalities. Impression: No acute cardiopulmonary abnormality. Signed by: Raf Fuentes on 07/11/2019 8:17 AM
[2019-07-11] MEDS: LACTOBACILLUS ACIDOPHILUS CAPSULE PEG SCH ×2 (08:51→15:33)
[2019-07-11] MEDS: ALLOPURINOL 100 MG TAB PO SCH (08:52)
[2019-07-11] MEDS: FOLIC ACID 1 MG TAB PO SCH (08:52)
[2019-07-11] MEDS ORDERED: ALLOPURINOL 300 MG TAB PO SCH (09:00)
[2019-07-11] MEDS: LORAZEPAM 0.5 MG TAB PEG PRN ×3 (09:11→22:59)
--- NOTE | 2019-07-11 10:08 | NUR ---
WOUND CARE NURSE INITIAL CONSULTATION. 69 YEAR OLD FEMALE ADMITTED TO [facility] WITH DX OF ACUTE BRONCHITIS, HEMOPTYSIS AND THROMBOCYTOPENIA. HEAD TO TOE SKIN ASSESSMENT PERFORMED TODAY. PT PRESENTS WITH A 1X1CM DTI TO LEFT FIRST METATARSAL HEAD. PT HAS A TRACHEOSTOMY AND A PEG TUBE. MINIMAL ASSISTANCE IS REQUIRED TO REPOSITION. THERE ARE NO OTHER AREAS OF CONCERN NOTED AT THIS TIME. NO S/S OF INFECTION AREA NOTE. PT EDUCATED ON PLAN OF CARE AND PRESSURE RELIEF. STATES UNDERSTANDING. LABS: WBC: 5.84 ALB: 3.1 RECOMMENDATIONS: ENCOURAGE PT TO REPOSITION EVERY TWO HOURS AND PRN. PROVIDE PT WITH BILATERAL HEEL PROTECTORS AND PILLOW SUSPENSIONS PLACE PT ON ALTERNATING LOW AIR LOSS MATTRESS APPLY VENELEX OINTMENT TO LEFT FIRST METATARSAL HEAD AND MONITOR DAILY. THANKS FOR THIS CONSULTATION. Addendum: 07/11/19 at 1015 by Kaia Woodward RN Amended: Links added.
--- NOTE | 2019-07-11 12:21 | Diagnostic Imaging Report ---
CT SOFT TISSUE NECK W HISTORY: Hemoptysis COMPARISON: Neck CT 03/01/2019 TECHNIQUE: Axial CT images were obtained through the neck with intravenous, iodine based contrast. Coronal and sagittal reconstructions obtained from the axial data. One or more of the following dose reduction techniques were used: Automated exposure control, adjustment of the mA and/or kV according to patient size, and/or utilization of iterative reconstruction technique. DISCUSSION: The tongue is mildly atrophic. Tracheostomy tube is in place. Mild focal circumferential mid tracheal wall thickening with mild stenosis is seen at the level of the tracheostomy tube tip. Trace fluid is seen in the mid esophagus. Otherwise, the visualized upper aerodigestive tract is unremarkable. No radiographically significant cervical adenopathy is seen. The thyroid gland is unremarkable. The submandibular and parotid glands are unremarkable. Moderate right and mild left carotid bulb calcified plaque is seen. The landscape horticulture instructor, parapharyngeal, posterior cervical, and perivertebral spaces are unremarkable. Mild carotid siphon calcifications are present. Otherwise, the visualized intracranial compartment and orbits are grossly unremarkable. The left sphenoid sinus is opacified. Mild left maxillary sinus mucosal thickening is seen. Bilateral middle ear and mastoid effusions are present, left greater than right. There are mild to moderate degenerative changes throughout the spine. There are also partially visualized degenerative changes in the bilateral shoulders. Mild dependent atelectasis is seen in the bilateral upper lungs. IMPRESSION: 1. Tracheostomy tube in place. 2. Nonspecific mild focal circumferential mid tracheal wall thickening with mild stenosis at the level of the tracheostomy tube tip. 3. Mildly atrophic tongue. Trace fluid in the mid esophagus. 4. Otherwise, the visualized upper aerodigestive tract is unremarkable. 5. No radiographically significant cervical adenopathy. Signed by: Dr. Kun Matias M.D. on 07/11/2019 12:18 PM
--- NOTE | 2019-07-11 12:35 | Diagnostic Imaging Report ---
CT of the chest, with contrast, 07/11/2019. History: Hemoptysis. Comparison: Chest x-ray from earlier today. Technique: Multidetector CT scanning of the chest was performed from the level of the apices to the upper abdomen after intravenous administration of contrast. Coronal and sagittal multiplanar reformations were obtained. RADIATION DOSE: Total DLP: 507 mGy*cm Dose modulation, iterative reconstruction, and/or weight based adjustment of the mA/kV was utilized to reduce the radiation dose to as low as reasonably achievable. Discussion: Chest: The atria, ventricles, aorta, and main pulmonary artery are normal in size. The thyroid is unremarkable. There is no evidence of axillary or mediastinal adenopathy. A tracheostomy tube is present terminating 4 cm above the marlyn. Central airways are patent. There is scattered subsegmental atelectasis bilaterally, especially in the lower lobes. A 1.5 x 0.9 cm pulmonary opacity with ill-defined borders is noted in the right lower lobe, axial images 73 through 76, with adjacent linear atelectasis. There is no evidence of pleural effusion. Limited evaluation of the upper abdomen shows normal adrenal glands. Bones and soft tissues: No acute abnormality. Advanced degenerative changes are present in both shoulders and throughout the thoracic spine. IMPRESSION: Right lower lobe round atelectasis/round pneumonia versus pulmonary nodule. Recommend follow-up CT in 3 months to ensure resolution. Signed by: Raf Fuentes on 07/11/2019 12:32 PM
[2019-07-11] MEDS ORDERED: SODIUM CHLORIDE 0.9% 250ML 250 ML ONE (13:01)
--- NOTE | 2019-07-11 13:14 | NUR ---
PLATELET TRANSFUSION STARTED
--- NOTE | 2019-07-11 13:15 | Consultation ---
DATE OF CONSULTATION: 07/11/2019 Pulmonary Critical Care Consultation CHIEF COMPLAINT: Hemoptysis. HISTORY OF PRESENT ILLNESS: The patient is a 69-year-old woman. She has a history of chronic respiratory failure and subglottic stenosis. She has a tracheostomy in place. She was evaluated [place]al specialist [place] and had dilatation of the tracheal stenosis, but they were unable to decannulate trach. She also suffered with several episodes of C. difficile colitis. She has liver problems. She was admitted to [facility] about 6 months ago last year with acute kidney injury and respiratory failure. She was subsequently admitted to the [facility] in April of this year with difficulty breathing and mucous plugging. She now complains of hemoptysis yesterday. She says she coughed up a large amount of blood that went on her shirt. She has not noted any worsening dyspnea. She denies fevers. She is not complaining of worsening cough or chest pain. PAST SURGICAL HISTORY: 1. Status post tracheostomy as noted above. 2. Status post PEG. 3. Status post left hip replacement. 4. Status post hysterectomy. PAST MEDICAL HISTORY: 1. Hypothyroidism. 2. Chronic respiratory failure. 3. Subglottic stenosis. 4. COPD. SOCIAL HISTORY: The patient is not an active smoker or drinker. FAMILY HISTORY: Family history is noncontributory. ALLERGIES: THE PATIENT IS ALLERGIC TO PENICILLIN. REVIEW OF SYSTEMS: The patient has no headache or fevers. She is not complaining of any difficulty breathing. She did have some hemoptysis. She has no abdominal pain. She has no nausea. There is no diarrhea. She has no leg edema. PHYSICAL EXAMINATION: VITAL SIGNS: The patient is afebrile. The blood pressure is 129/65. Saturation is normal. HEENT: Shows no facial swelling or erythema. The nasal mucosa is normal. The oropharynx is normal. The patient has a tracheostomy in place. The site is clean. There is no drainage. CARDIAC: Reveals a regular rate and rhythm with a normal S1 and S2. There are no murmurs or rubs. Auscultation of lungs are clear breath sounds bilaterally. There is no wheezing. ABDOMEN: Soft and nontender. There is no rebound or guarding. EXTREMITIES: Shows no leg edema or calf tenderness. There is no cyanosis or clubbing. SKIN: Shows no rashes. IMPRESSION: 1. Hemoptysis. 2. Thrombocytopenia. 3. Chronic respiratory failure. 4. Tracheal stenosis. 5. Moderate protein-calorie malnutrition. 6. Chronic liver disease. PLAN: 1. CT scan of the chest and soft tissue neck to look for any source of bleeding. 2. Platelet transfusion to increase platelet count above 50. 3. Continue to monitor blood counts and platelet counts. 4. Dietary evaluation. 5. Physical therapy. 6. Tracheostomy care. Juan C Kerns MD [facility] /[id number]
[2019-07-11] MEDS ORDERED: SODIUM CHLORIDE 0.9% 50ML 50 ML ONE (16:09)
[2019-07-11] MEDS ORDERED: IOPAMIDOL 370 MG/ML 200 ML INFUS..BTL INJ ONE (16:09)
[2019-07-11] MEDS ORDERED: MUCOMYST NEB PRN (17:45)
[2019-07-11] MEDS ORDERED: SIMETHICONE 80 MG CHEW PO PRN (17:45)
[2019-07-11] MEDS ORDERED: ACETAMINOPHEN 325 MG TAB PO PRN (17:45)
[2019-07-11] MEDS ORDERED: LOPERAMIDE HCL 2 MG CAP PEG PRN (17:45)
[2019-07-11] MEDS ORDERED: VANCOMYCIN 250MG/5ML ORAL SOLN PO SCH (18:00)
--- NOTE | 2019-07-11 18:00 | NUR ---
spoke with Mr Lopez. He will bring in medication bottles for current medications in the morning
[2019-07-11] MEDS ORDERED: ACETYLCYSTEINE 200 MG/ML 4ML VIAL INH PRN (19:00)
--- NOTE | 2019-07-11 19:26 | NUR ---
Nutrition Screen Note RD Recommendation for Physician: -Continue pureed diet -If PO inake <50% of meals, offer Ensure Plan of Care: RD following, monitoring for tolerance and adequacy Nutrition reason for involvement Nutrition Risk Trigger MST 2 Primary Diagnose(s): Hemoptysis, Thrombocytopenia, Chronic respiratory failure, Tracheal stenosis, Moderate protein-calorie malnutrition, Chronic liver disease. PMH: Hypothyroidism, Chronic respiratory failure, Subglottic stenosis, COPD. Pt also has h/o PEG tube Ht: 68 in Wt:160 lb BMI: 24.3 kg/m2 IBW:[address] Assessment: (07/11/19) Chart reviewed. Labs and meds reviewed. Pt is a 69 year old female. Pt consumes a pureed diet and pt stated she only uses PEG tube for medications. Pt stated she has been eating >50% of her meals. Per documentation, pt consumed 75-100% of her meals today. Pt mentioned she had weighed 383 lbs 2 years ago and now weighs 160 lbs. Per chart history, pt has weights ranging from 206-216 lbs in June 2018. Pt currently has a wt of 160 lbs in chart. If accurate, this would be >20% wt loss in 1 year. No N/V/D/C reported. Will continue to monitor. Pt was not interested in nutrition supplement at time of visit. Current Diet: Cardiac, pureed Malnutrition Evaluation (07/11/19) The patient meets criteria for SEVERE protein-calorie malnutrition due to moderate muscle/fat depletion and >20% wt loss in 1 year per wt history in chart history. Energy intake: Adequate PO intake reported Weight loss: Per chart history, pt weighed 206-216 lbs in June 2018. Pt currently weighs 160 lbs per chart. If accurate, this would be >20% wt loss in 1 year Fat loss: Moderate tricep region, loose skin Muscle loss: Moderate lower extremities Supporting Evidence: Fluid accumulation: no accumulation identified Functional Status: unable to evaluate Diet Education Needs Assessment: Diet education not indicated Nutrition Care Level: low Signed: Jaja Cruz, RD, LD
[2019-07-11] MEDS: IPRATROPIUM BROMIDE 0.02% 2.5 ML NEB NEB SCH (20:30)
[2019-07-11] MEDS: METOPROLOL TARTRATE 25 MG TAB PO SCH (21:00)
[2019-07-11] MEDS ORDERED: NON-FORMULARY MEDICATION (Metoclopramide Hcl (Reglan) 5 MG) PEG SCH (21:00)
[2019-07-11] MEDS: METOCLOPRAMIDE HCL 10 MG TAB PEG SCH (21:00)
[2019-07-11] MEDS: AMITRIPTYLINE HCL 25 MG TAB PO SCH (21:00)
[2019-07-11] MEDS: LEVOFLOXACIN 500MG/D5W 100ML 100 ML IV SCH (21:04)
[2019-07-12] VITALS (9 sets, daily range): BP systolic 93–121; BP diastolic 48–90
[2019-07-12] MEDS ORDERED: HYDRALAZINE HCL 20 MG/ML VIAL IV PRN (00:15)
[2019-07-12] MEDS: IPRATROPIUM BROMIDE 0.02% 2.5 ML NEB NEB SCH ×4 (00:30→19:00)
[2019-07-12] MEDS: SODIUM CHLORIDE 0.9% 1000ML 1,000 ML IV SCH ×2 (02:09→06:07)
[2019-07-12 05:24] LABS: BASOPHILS % 0.4 % (0.0-1.0); EOSINOPHILS # (AUTO) 0.3 (0.0-0.4); EOSINOPHILS % 5.3 % (0.0-6.0); HEMATOCRIT 31.7 % (34.2-44.1); HEMOGLOBIN 9.8 g/dL (12.0-16.0); LYMPHOCYTES # (AUTO) 1.2 (1.0-3.2); LYMPHOCYTES % 26.1 % (18.0-39.1); MEAN CORPUSCULAR HEMOGLOBIN 29.7 pg (28-32); MEAN CORPUSCULAR HGB CONC 30.9 g/dL (31-35); MEAN CORPUSCULAR VOLUME 96.1 fL (81-99); MONOCYTES # (AUTO) 0.4 (0.2-0.8); MONOCYTES % 8.9 % (4.4-11.3); NEUTROPHILS # (AUTO) 2.8 (2.1-6.9); NEUTROPHILS % 59.1 % (38.7-80.0); RED CELL DISTRIBUTION WIDTH 11.5 % (11.7-14.4)
[2019-07-12 05:40] LABS: PLATELET COUNT 32 x10e3/uL (140-360)
[2019-07-12 05:43] LABS: ANION GAP 10.9 mmol/L (8-16); BLOOD UREA NITROGEN 12 mg/dL (7-26); BUN/CREATININE RATIO 17 (6-25); CALCIUM 10.1 mg/dL (8.4-10.2); CARBON DIOXIDE 25 mmol/L (22-29); CHLORIDE 111 mmol/L (98-107); CREATININE, SERUM 0.69 mg/dL (0.57-1.11); EST GLOMERULAR FILTRATION RATE > 60 ML/MIN (60-); GLUCOSE 77 mg/dL (74-118); MAGNESIUM 1.5 MG/DL (1.3-2.1); PHOSPHORUS 2.5 MG/DL (2.3-4.7); POTASSIUM 3.9 mmol/L (3.5-5.1); SODIUM 143 mmol/L (136-145)
[2019-07-12] MEDS: LEVOTHYROXINE SODIUM 75 MCG TAB PO SCH (06:07)
[2019-07-12 06:14] LABS: EOSINOPHILS % (MANUAL) 13 % (0-7); MONOCYTES % (MANUAL) 31 % (3.4-9.0); NEUTROPHILS % (MANUAL) 56 % (40-74); PLATELET ESTIMATE MARKEDLY DECREASED
[2019-07-12] MEDS: LEVALBUTEROL HCL SOLN NEBU 0.63 MG/3 ML NEB INH PRN ×2 (07:27→13:08)
[2019-07-12] MEDS: FAMOTIDINE 20 MG TAB PO SCH ×2 (07:30→16:48)
[2019-07-12] MEDS ORDERED: POTASSIUM CHLORIDE 10MEQ EA PO SCH (09:00)
[2019-07-12] MEDS: METOPROLOL TARTRATE 25 MG TAB PO SCH ×2 (09:00→21:00)
[2019-07-12] MEDS: SITAGLIPTIN 100 MG TAB PO SCH (09:21)
[2019-07-12] MEDS: ASCORBIC ACID 500 MG TAB PO SCH ×2 (09:21→16:48)
[2019-07-12] MEDS: LACTOBACILLUS ACIDOPHILUS CAPSULE PEG SCH ×2 (09:21→16:48)
[2019-07-12] MEDS: METOCLOPRAMIDE HCL 10 MG TAB PEG SCH ×3 (09:21→21:21)
[2019-07-12] MEDS: POTASSIUM CHLORIDE 20MEQ/15ML UDC PEG SCH (09:21)
[2019-07-12] MEDS: FUROSEMIDE 40 MG TAB PO SCH (09:21)
[2019-07-12] MEDS: ALLOPURINOL 100 MG TAB PO SCH (09:21)
[2019-07-12] MEDS: BALSAM PERU/CASTOR OIL 60 GM OINT...G. TP SCH ×2 (09:21)
[2019-07-12] MEDS: FOLIC ACID 1 MG TAB PO SCH (09:21)
[2019-07-12] MEDS: LORAZEPAM 0.5 MG TAB PEG PRN (10:50)
--- NOTE | 2019-07-12 12:31 | Progress Note ---
DATE: 07/12/2019 SUBJECTIVE: The patient has no further hemoptysis. She is not having any fevers. Overall, she feels improved. PHYSICAL EXAMINATION: VITAL SIGNS: Stable. The blood pressure is 103/90 and the saturation is 98%. HEENT: Shows no facial swelling or erythema. NECK: Tracheostomy site is clean. CARDIAC: Reveals regular rate and rhythm with normal S1, S2. There are no murmurs or rubs heard. LUNGS: Auscultation of lungs reveals rhonchorous breath sounds bilaterally. There is no wheezing. ABDOMEN: Soft, nontender. There is no rebound or guarding. EXTREMITIES: Show no leg edema or calf tenderness. RADIOGRAPHIC DATA: Chest CT shows round atelectasis versus pneumonia in the right lower lobe. The CT scan of the neck shows a tracheostomy tube in good position. There is some circumferential narrowing consistent with mild stenosis at the tip. IMPRESSION: 1. Hemoptysis, unclear etiology. 2. Thrombocytopenia. 3. Chronic respiratory failure. PLAN: 1. Continue antibiotics. 2. Continue trach care. 3. The patient is awaiting Hematology evaluation. Juan C Kerns MD [facility] /[id number]
--- NOTE | 2019-07-12 16:22 | Consultation ---
DATE OF CONSULTATION: 07/12/2019 Thank you, Dr. Stein for this consultation. HISTORY OF PRESENT ILLNESS: She is a 69-year-old female with history of prolonged hospital admissions at [facility] in november 2018. 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 She coughed up a large amount of blood. No shortness of breath, fever or chills reported. Her CBC shows thrombocytopenia. Previous records from [facility] also shows history of recurrent thrombocytopenia, which is continuous improvement. Her CAT scan done in [place] shows fatty liver. She denies any bruising or ecchymosis. Hemoglobin is slightly trending down. She received 1 unit of platelet transfusion. Current platelet count is still between 30 and 40s. Her hemoptysis and bleeding episode improved. She is currently following relations manager. She is waiting to follow up with ENT. PAST MEDICAL HISTORY: Diabetes, hypertension, hypothyroidism, respiratory failure, subglottic stenosis, COPD, history of tracheostomy and PEG placement, hip surgery. SOCIAL HISTORY: The patient is not a smoker or drinker. FAMILY HISTORY: Not relevant. ALLERGIES: PENICILLIN AND HEPARIN. REVIEW OF SYSTEMS: A 12-point review as per HPI. PHYSICAL EXAMINATION: VITAL SIGNS: The patient is afebrile. Blood pressure is stable. HEENT: Normocephalic, atraumatic. Sclerae pale. Conjunctivae clear. NECK: Tracheostomy in place, clean, dry. CARDIAC: Regular rate and rhythm. ABDOMEN: Soft, nontender. EXTREMITIES: No edema. MUSCULOSKELETAL: Restricted. LABORATORY DATA AND IMAGING DATA: Reviewed. ASSESSMENT: The patient with history of multiple medical conditions and currently involved worsening thrombocytopenia. The patient has a history of thrombocytopenia in the past and spontaneous improvement in the past. CAT scan of abdomen shows fatty liver. Current platelet counts are low, but no evidence of any active bleeding through tracheostomy site. She is currently following relations manager and supposed to followup ENT. RECOMMENDATIONS: 1. Monitor platelet count. 2. Platelet transfusion if any more further episode of bleeding or before any procedure. 3. Avoid thrombocytopenic medication. 4. Likely etiology medication. 5. Another possibility MDS/chronic ITP. 6. Continue current care. 7. Monitor platelet count, if no improvement, recommendation leukemia lymphoma panel. 8. We will follow the patient closely. MD BEN Gonzalez/ANGEL LUIS /[id number]
[2019-07-12] MEDS: LEVOFLOXACIN 500MG/D5W 100ML 100 ML IV SCH (21:20)
[2019-07-12] MEDS: AMITRIPTYLINE HCL 25 MG TAB PO SCH (21:21)
[2019-07-13] MEDS: LORAZEPAM 0.5 MG TAB PEG PRN (00:48)
--- NOTE | 2019-07-13 01:35 | Consultation ---
DATE OF CONSULTATION: 07/12/2019 Hospital Consultation HISTORY OF PRESENT ILLNESS: I was kindly asked to see this 69-year-old woman known to me from the previous inpatient evaluation and treatment. She has a complicated history of subglottic stenosis and tracheal stenosis which has required surgical intervention in the past. She now presents with a history of coughing up blood from her tracheostomy tube and was found to have thrombocytopenia. Since transfusion of platelets, she has had no further episodes of hemoptysis. She reports the blood does not seem to be coming from her nose or throat, but coming from the lungs through the tracheostomy tube. PAST MEDICAL HISTORY: Reviewed in detail in the chart. PAST SURGICAL HISTORY: Reviewed in detail in the chart. REVIEW OF SYSTEMS: Otolaryngology review of systems is pertinent for no significant nasal or sinus symptoms. PHYSICAL EXAMINATION: The right pinna is normal. The right external auditory canal is normal. The right tympanic membrane is normal. There is no postauricular pain, swelling, or tenderness. Left pinna is normal. Left external auditory canal is approximately 50% occluded with cerumen. The visualized portion of the tympanic membrane is normal. The postauricular area has no erythema, swelling, or tenderness. Intranasal examination shows a mild S-shaped nasal septal deviation. There is no blood noted within the nasal cavity. Oral cavity examination shows mild candidiasis of the dorsum of the tongue. She has poor dentition. There are no bleeding points identified within the teeth or gum region. Soft palate is unremarkable. She has moderate lateral banding. There is no fresh blood noted along the posterior pharyngeal wall. She has symmetric elevation of the soft palate. There is no palpable cervical adenopathy. The tracheostomy site appears quiescent. The patient reports a recent replacement of her tracheostomy tube downtown on fiberoptic diagnostic rhinoscopy. There are no bleeding points identified within the nasal cavity or paranasal sinuses. Fiberoptic laryngoscopy shows normal vocal cord motion. There are no masses. There is no blood in the supraglottic larynx and no bleeding points identified in the larynx with the visualized portion of the subglottis. Bronchoscopy through the tracheostomy tube shows thick mucus within the trachea and within both mainstem bronchi. There was no blood noted within the mainstem bronchi. IMAGING DATA: The CT scan of the neck demonstrated thickening distal to the tracheostomy tip. However, this is not appreciated on examination. ASSESSMENT: 1. Bleeding probably coming from the tracheostomy site as this is surgically recent and no other bleeding points were identified and specifically there was no blood noted within the mainstem bronchi. 2. No evidence of epistaxis on fiberoptic diagnostic rhinoscopy. 3. Nasal septal deviation. 4. Hemoptysis secondary to tracheostomy site combined with thrombocytopenia and coagulopathy. 5. Subglottic stenosis. 6. Tracheal stenosis. PLAN: No otolaryngology changes. MD CECILIO Vasques/MODL /[id number]
[2019-07-13] MEDS: IPRATROPIUM BROMIDE 0.02% 2.5 ML NEB NEB SCH ×2 (02:20→07:16)
[2019-07-13] MEDS: LEVALBUTEROL HCL SOLN NEBU 0.63 MG/3 ML NEB INH PRN ×2 (02:20→07:16)
[2019-07-13 03:00] VITALS: BP 105/51
[2019-07-13] MEDS: LEVOTHYROXINE SODIUM 75 MCG TAB PO SCH (05:34)
[2019-07-13 06:16] LABS: BASOPHILS % 0.4 % (0.0-1.0); EOSINOPHILS # (AUTO) 0.3 (0.0-0.4); EOSINOPHILS % 5.1 % (0.0-6.0); HEMATOCRIT 31.4 % (34.2-44.1); HEMOGLOBIN 9.9 g/dL (12.0-16.0); LYMPHOCYTES # (AUTO) 1.3 (1.0-3.2); LYMPHOCYTES % 24.7 % (18.0-39.1); MEAN CORPUSCULAR HEMOGLOBIN 29.7 pg (28-32); MEAN CORPUSCULAR HGB CONC 31.5 g/dL (31-35); MEAN CORPUSCULAR VOLUME 94.3 fL (81-99); MONOCYTES # (AUTO) 0.4 (0.2-0.8); MONOCYTES % 7.7 % (4.4-11.3); NEUTROPHILS # (AUTO) 3.3 (2.1-6.9); NEUTROPHILS % 61.5 % (38.7-80.0); RED BLOOD COUNT 3.33 x10e6/uL (3.6-5.1); RED CELL DISTRIBUTION WIDTH 11.4 % (11.7-14.4)
[2019-07-13 06:30] LABS: PLATELET COUNT 31 x10e3/uL (140-360)
[2019-07-13 06:43] LABS: ANION GAP 11.8 mmol/L (8-16); BLOOD UREA NITROGEN 15 mg/dL (7-26); BUN/CREATININE RATIO 19 (6-25); CALCIUM 10.2 mg/dL (8.4-10.2); CARBON DIOXIDE 28 mmol/L (22-29); CHLORIDE 105 mmol/L (98-107); CREATININE, SERUM 0.79 mg/dL (0.57-1.11); EST GLOMERULAR FILTRATION RATE > 60 ML/MIN (60-); GLUCOSE 82 mg/dL (74-118); POTASSIUM 3.8 mmol/L (3.5-5.1); SODIUM 141 mmol/L (136-145)
[2019-07-13] MEDS ORDERED: FERROUS SULFAT325 M1 PO (07:50)
[2019-07-13] MEDS ORDERED: ASCORBIC ACID500 MG PO (07:50)
[2019-07-13 08:00] VITALS: BP 93/73
--- NOTE | 2019-07-13 08:15 | NUR ---
Called Dr. Willis made aware of patient's platelets 31 no new orders received.
[2019-07-13] MEDS: FUROSEMIDE 40 MG TAB PO SCH (08:32)
[2019-07-13] MEDS: FAMOTIDINE 20 MG TAB PO SCH (08:32)
[2019-07-13] MEDS: LACTOBACILLUS ACIDOPHILUS CAPSULE PEG SCH (08:32)
[2019-07-13] MEDS: ALLOPURINOL 100 MG TAB PO SCH (08:32)
[2019-07-13] MEDS: POTASSIUM CHLORIDE 20MEQ/15ML UDC PEG SCH (08:32)
[2019-07-13] MEDS: SITAGLIPTIN 100 MG TAB PO SCH (08:33)
[2019-07-13] MEDS: METOCLOPRAMIDE HCL 10 MG TAB PEG SCH (08:33)
[2019-07-13] MEDS: ASCORBIC ACID 500 MG TAB PO SCH (08:33)
[2019-07-13] MEDS: FOLIC ACID 1 MG TAB PO SCH (08:33)
[2019-07-13] MEDS: METOPROLOL TARTRATE 25 MG TAB PO SCH (08:35)
[2019-07-13] MEDS ORDERED: FLUCONAZOLE100 MG PO (09:42)
[2019-07-13] MEDS ORDERED: FLUCONAZOLE 400MG/200ML BAG 200 ML IV SCH (09:45)
[2019-07-13] MEDS: BALSAM PERU/CASTOR OIL 60 GM OINT...G. TP SCH ×2 (09:54)
--- NOTE | 2019-07-13 10:08 | NUR ---
CHOICE LETTER AND IMM OBTAINED OVER PHONE BY NATHANIEL CUMMINGS [phone] IMM PUT ON CHART CHOICE LETTER FOR [facility] [phone] CLINICALS FAXED TO [phone] CONFIRMATION REC'D SPOKE WITH DANG AT [facility] AND THEY WILL MEET PT AT HOME TODAY TO PUT HER BACK ON SERVICE PT AND AWARE OF PLAN AND AGREEABLE
[2019-07-13 10:21] VITALS: BP 112/56
[2019-07-13 10:47] LABS: PLATELET ESTIMATE MODERATELY DECREASED; PLATELET MORPHOLOGY COMMENT NORMAL; RBC MORPHOLOGY COMMENT NORMAL
[2019-07-13 12:00] VITALS: BP 117/55
[2019-07-13] MEDS ORDERED: ONDANSETRON HCL 4 MG ORAL DISINTEGRATING TAB PO PRN (12:30)
--- NOTE | 2019-07-13 12:42 | NUR ---
Called Pilar Rollins to let her know patient IV infiltrated while fluconazole infusing and patient refused to another IV access, received orders to go ahead and discharge her. Patient going home with fluconazole prescription.
--- NOTE | 2019-07-13 12:45 | NUR ---
Patient refused Pneumonia vaccine.
--- NOTE | 2019-07-13 13:30 | NUR ---
Patient discharged home verbalized understanding of d/ instructions. Refused pneumonia vaccine, patient left unit in stretcher via EMS no s/s of distress.
--- NOTE | 2019-07-13 16:09 | Progress Note ---
DATE: 07/13/2019 Pulmonary Progress Note SUBJECTIVE: The patient was evaluated by ENT yesterday as well as Hematology. She has no further hemoptysis. PHYSICAL EXAMINATION: VITAL SIGNS: The patient is afebrile. The blood pressure is 93/73, saturation is 100% on trach collar. NECK: Tracheostomy site is clean. CARDIAC: Reveals regular rate and rhythm with normal S1, S2. There are no murmurs or rubs heard to auscultation. LUNGS: Reveals clear breath sounds bilaterally. There is no wheezing. ABDOMEN: Soft, nontender. There is no rebound or guarding. IMPRESSION: 1. Hemoptysis of unclear etiology. 2. Thrombocytopenia. 3. Round atelectasis in the right lower lobe. 4. Chronic respiratory failure. 5. Tracheal stenosis. PLAN: 1. The patient should have a repeat CT scan of the chest in 3 months to make sure the round atelectasis has resolved. 2. Continue tracheostomy care. 3. Monitor platelet counts. The patient will need a followup with Hematology as an outpatient. MD CRIS Celis/ANGEL LUIS /[id number]
--- NOTE | 2019-07-13 17:19 | Progress Note ---
DATE: 07/13/2019 SUBJECTIVE: The patient is seen and examined today. The patient is being comfortably clinically doing better. PHYSICAL EXAMINATION: GENERAL: Alert, awake, communicative. HEENT: Normocephalic and atraumatic. Sclerae pale. Conjunctivae clear. NECK: Supple. CHEST: Clear to auscultation. ABDOMEN: Soft. EXTREMITIES: No edema. LABORATORY AND IMAGING DATA: Reviewed. ASSESSMENT AND PLAN: The patient with history of multiple medical conditions, Thrombocytopenia. No clear etiology. Possibility of multifactorial. Platelet count is low, but stable. No evidence of any bleeding. The patient already followed up with ENT surgeon. No intervention recommended. RECOMMENDATION: Current current care. We will monitor the patient closely. Diabetes, blood glucose is controlled. Hypertension, current blood pressure is well controlled. Respiratory failure. Status post tracheostomy, clinically doing better. We will follow. MD BEN Gonzalez/MODL /[id number]
--- NOTE | 2019-07-15 03:12 | Discharge Summary ---
DISCHARGE DIAGNOSES: Acute hemoptysis, thrombocytopenia, chronic respiratory failure with trach placement, chronic obstructive pulmonary disease without exacerbation, tracheal stenosis, status post dilation and trach placement, moderate protein calorie malnutrition, anemia of chronic disease, hypertension, type 2 diabetes, hypothyroidism, ambulatory dysfunction. DISCHARGE DIAGNOSES: Acute hemoptysis, thrombocytopenia, chronic respiratory failure with trach placement, chronic obstructive pulmonary disease without exacerbation, tracheal stenosis, status post dilation and trach placement, moderate protein calorie malnutrition, anemia of chronic disease, hypertension, type 2 diabetes, hypothyroidism, ambulatory dysfunction. HISTORY: Hypertension, type 2 diabetes, GERD, anemia, hypothyroidism, anxiety, depression, chronic respiratory failure with trach, Clostridium difficile colitis, subglottic stenosis, mucus plugging, COPD. SURGICAL HISTORY: Hysterectomy, tracheostomy, PEG tube placement, left hip replacement. FAMILY HISTORY: The patient's mom and dad both have cancer. SOCIAL HISTORY: Occasional alcohol use. HOSPITAL COURSE: A 69-year-old female admitted due to coughing up blood on her chest, which started about 4 p.m. on the day of admission. Her called 911 and the patient was brought to the ER. On admission, no obvious source of bleeding was seen. CT of the neck showed trach tube in place, mild focal circumferential mild tracheal wall thickening with mild stenosis at the level of the tracheostomy tube tip. Hemoglobin was 11 on admission. Platelet count was 37. CT of the chest was done, that showed right lower lobe around atelectasis, glass ground pneumonia versus pulmonary nodule. Follow up CT in 3 months. Chest x-ray was negative. Pulmonology and ENT were consulted. Per ENT assessment, the bleeding is probably coming from the trach site as it is surgically recent and no other points of bleeding were identified. No evidence of epistaxis on the fiberoptic diagnostic rhinoscopy, hemoptysis secondary to trach site combined with thrombocytopenia and coagulopathy. The patient will be discharged home as her hemoglobin remained stable and no additional hemoptysis was observed. She will discharge home with her . The patient understands discharge instructions and agrees to plan. She will follow up with primary care in 1 to 2 weeks. Dictated by Pilar Rollins NP MD BOOGIE Cervantes/MODL /[id number]
== END 2019-07-13 13:30 | disposition home or self-care (01) | DRG 205 ==
LOC: ER 19:35 → ERHOLD 22:26 → IMCU 23:30
PROVIDERS: ADMIT Internal Medicine; ATTEND Internal Medicine
PROC: 30230R1 Transfusion of Nonautologous Platelets into Peripheral Vein, Open Approach (ICD-10-PCS; principal; 2019-07-11)
PROC: 09JK8ZZ Inspection of Nasal Mucosa and Soft Tissue, Via Natural or Artificial Opening Endoscopic (ICD-10-PCS; 2019-07-12)
DX: J95.01 Hemorrhage from tracheostomy stoma (principal); E43 Unspecified severe protein-calorie malnutrition; R04.2 Hemoptysis; J96.10 Chronic respiratory failure, unspecified whether with hypoxia or hypercapnia; D68.9 Coagulation defect, unspecified; D69.59 Other secondary thrombocytopenia; Z68.24 Body mass index [BMI] 24.0-24.9, adult; J44.9 Chronic obstructive pulmonary disease, unspecified; D63.8 Anemia in other chronic diseases classified elsewhere; E11.9 Type 2 diabetes mellitus without complications; E03.9 Hypothyroidism, unspecified; R26.9 Unspecified abnormalities of gait and mobility; J39.8 Other specified diseases of upper respiratory tract; Z96.642 Presence of left artificial hip joint; K76.0 Fatty (change of) liver, not elsewhere classified; J34.2 Deviated nasal septum
CPT/HCPCS: 36415; 70491; 71045; 71260; 80048; 80053; 83735; 84100; 85025; 85610; 85730; 86850; 86870; 86880; 86900; 86905; 94640; 99001; 99285; J1450; J1956; J7030; J7050; P9034; Q9967

== ENCOUNTER 2019-11-19 14:43 | Emergency (ER) | payer MEDICARE, OTHER ==
[~2019-11-19] VITALS: Ht 172.7 cm; Wt 62.1 kg
[~2019-11-19 14:43] MED LIST changes: +FERROUS SULFAT325 M1 PO; +FLUCONAZOLE100 MG PO
[2019-11-19] MEDS ORDERED: LEVOFLOXACIN 750MG/D5W 150ML 150 ML IV SCH (15:00)
--- NOTE | 2019-11-19 15:53 | Diagnostic Imaging Report ---
Chest, portable AP view History: Respiratory distress Comparison: 09/25/2019 IMPRESSION: The heart is within normal limits size. The tracheostomy cannula is midline. There is no focal consolidation, sizable pleural effusion, or pneumothorax. Degenerative changes of the bilateral shoulders are noted. No acute osseous abnormalities. Signed by: Luis A Monsalve MD on 11/19/2019 3:50 PM
[2019-11-19] MEDS ORDERED: LORAZEPAM INJ 2 MG/ML VIAL IV ONE (16:15)
[2019-11-19 16:23] LABS: BASOPHILS % 0.3 % (0.0-1.0); EOSINOPHILS # (AUTO) 0.2 (0.0-0.4); EOSINOPHILS % 3.6 % (0.0-6.0); HEMATOCRIT 38.3 % (34.2-44.1); HEMOGLOBIN 12.2 g/dL (12.0-16.0); LYMPHOCYTES # (AUTO) 1.4 (1.0-3.2); LYMPHOCYTES % 21.1 % (18.0-39.1); MEAN CORPUSCULAR HEMOGLOBIN 28.9 pg (28-32); MEAN CORPUSCULAR HGB CONC 31.9 g/dL (31-35); MEAN CORPUSCULAR VOLUME 90.8 fL (81-99); MONOCYTES # (AUTO) 0.4 (0.2-0.8); MONOCYTES % 5.6 % (4.4-11.3); NEUTROPHILS # (AUTO) 4.4 (2.1-6.9); NEUTROPHILS % 69.1 % (38.7-80.0); RED BLOOD COUNT 4.22 x10e6/uL (3.6-5.1); RED CELL DISTRIBUTION WIDTH 12.8 % (11.7-14.4)
[2019-11-19 16:29] LABS: PLATELET COUNT 62 x10e3/uL (140-360)
[2019-11-19 16:40] LABS: ALANINE AMINOTRANSFERASE 13 IU/L (0-55); ALBUMIN 4.1 g/dL (3.5-5.0); ALBUMIN/GLOBULIN RATIO 1.2 (0.8-2.0); ALKALINE PHOSPHATASE 115 IU/L (40-150); ANION GAP 12.5 mmol/L (8-16); BLOOD UREA NITROGEN 14 mg/dL (7-26); BUN/CREATININE RATIO 17 (6-25); CALCIUM 10.4 mg/dL (8.4-10.2); CARBON DIOXIDE 28 mmol/L (22-29); CHLORIDE 105 mmol/L (98-107); CREATINE KINASE 38 IU/L (29-168); CREATININE, SERUM 0.82 mg/dL (0.57-1.11); EST GLOMERULAR FILTRATION RATE > 60 ML/MIN (60-); GLUCOSE 93 mg/dL (74-118); POTASSIUM 4.5 mmol/L (3.5-5.1); SODIUM 141 mmol/L (136-145)
[2019-11-19 16:55] LABS: ABG HCO3 27 mmol/L (23-28); ABG PCO2 40 mmHg (41-51); ABG PH 7.44 (7.31-7.41); ABG PO2 128 mmHg (80-105)
[2019-11-19] MEDS ORDERED: ONDANSETRON HCL INJ 2MG/ML 2ML 2 MG/ML VIAL IV STA (17:58)
[2019-11-19 18:01] VITALS: BP 126/79
== END 2019-11-19 19:44 ==
LOC: ER 14:43
DX: R06.00 Dyspnea, unspecified (principal); Z43.0 Encounter for attention to tracheostomy
CPT/HCPCS: 36415; 71045; 80053; 82550; 82553; 82805; 83605; 84484; 85025; 87040; 87071; 87205; 99284; J2060; J2405

== ENCOUNTER 2020-02-10 01:51 | Emergency (ER) | payer MEDICARE ==
[~2020-02-10] VITALS: Ht 172.7 cm; Wt 62.1 kg
--- OUTSIDE RECORDS SUMMARY | 2020-02-10 01:54 | XMS REPORT | Summary of Care ---
Author Author [facility] Organization [facility] Address Unknown Phone Unavailable Encounter TRANG Souza(ROMEO) [id number] Date(s): 06/27/19 - 07/01/19 [facility] [address] [employer] provided by [facility] [place] [address]- Discharge Disposition: Home or Self Care Attending Physician: Paulie Silva MD Admitting Physician: Paulie Silva MD Vital Signs 1 2 3 Most recent to oldest [Reference Range]: 172.72 cm (06/29/19 6:34 PM) 172.72 cm (06/29/19 5:30 PM) 172.72 cm (06/27/19 11:23 PM) Height 97.6 DegF (07/01/19 12:01 PM) 97.6 DegF (07/01/19 8:09 AM) 100 DegF *HI* (06/30/19 11:55 PM) Temperature Oral [96.4-99.1 DegF] 121/78 mmHg (07/01/19 12:01 PM) 129/76 mmHg (07/01/19 8:09 AM) 106/62 mmHg (06/30/19 11:55 PM) Blood Pressure [90-140/60-90 mmHg] 18 BRMIN (06/30/19 11:55 PM) 18 BRMIN (06/30/19 3:00 AM) 20 BRMIN (06/30/19 12:18 AM) Respiratory Rate [14-20 BRMIN] 68 bpm (07/01/19 12:01 PM) 106 bpm *HI* (07/01/19 8:09 AM) 92 bpm (06/30/19 11:55 PM) Peripheral Pulse Rate [60-100 bpm] 81.818 kg (06/27/19 11:23 PM) 81.818 kg (06/27/19 2:21 PM) Weight 27.43 m2 (06/27/19 11:23 PM) Body Mass Index Problem List Condition Effective Dates Status Health Status Informan t Arthritis(Confirmed) Active Benign Active hypertension(Confirm ed) Diabetes(Confirmed) Active Fibromyalgia(Confirm Active ed) Acid Active reflux(Confirmed) Generalized Active obesity(Confirmed) Heart Active murmur(Confirmed) Hypothyroid(Confirme Active d) Irritable bowel Active syndrome (IBS)(Confirmed) Allergies, Adverse Reactions, Alerts Substance Reaction Severity Status penicillins Active heparin Active Other Environmental Active Allergy1 1Titanium Medications acetaminophen 650 mg, 2 tab, Route: PEG, Drug form: TAB, Q4H, Dosing Weight 81.818, kg, PRN Pa in 1-3/Temp > 100.4 F, Start date: 06/27/19 17:06:00 CDT, Duration: 30 day, Stop date: 07/27/19 17:05:00 COORDINATOR SKILL TRAINING PROGRAM, 0 Notes: Do not exceed 4 gm/day. (Same as: Tylenol) Start Date: 06/27/19 Stop Date: 07/01/19 Status: Discontinued allopurinol 100 mg, 1 tab, Route: PEG, Drug form: TAB, Daily, Dosing Weight 81.818, kg, Star t date: 06/28/19 9:00:00 CDT, Duration: 30 day, Stop date: 07/27/19 9:00:00 COORDINATOR SKILL TRAINING PROGRAM, 0 Notes: (Same as: Zyloprim) Start Date: 06/28/19 Stop Date: 07/01/19 Status: Discontinued amitriptyline 25 mg, 1 tab, Route: PEG, Drug form: TAB, Bedtime, Dosing Weight 81.818, kg, Sta rt date: 06/27/19 21:00:00 CDT, Duration: 30 day, Stop date: 07/26/19 21:00:[address], 0 Notes: (Same as: Elavil) Start Date: 06/27/19 Stop Date: 07/01/19 Status: Discontinued bisacodyl 10 mg, 1 supp, Route: MD, Drug form: SUPP, Daily, Dosing Weight 81.818, kg, PRN Constipation, Start date: 06/27/19 17:06:00 CDT, Duration: 30 day, Stop date: 17:05:00 COORDINATOR SKILL TRAINING PROGRAM, 0 Notes: (Same As: Dulcolax, Bisco-Lax) Start Date: 06/27/19 Stop Date: 07/01/19 Status: Discontinued cefTRIAXone 1 g intravenous injection 1 gm, IV, 1G/100ML NS //INFUSE OVER 30 MIN IN Q12H, 0 Refill(s) Start Date: 06/29/19 Stop Date: 07/01/19 Status: Discontinued cloNIDine 0.1 mg oral tablet 0.1 mg = 1 tab, PO, Q8H, NEEDED OF SBP>160, 0 Refill(s) Start Date: 06/29/19 Status: Ordered dexamethasone (ANES) Route: IV, Drug form: INJ, ONCE, Stop date: 06/27/19 18:53:00 CDT Start Date: 06/27/19 Stop Date: 06/27/19 Status: Completed Dextrose 50% Syringe 12.5 gm, 25 mL, Route: IVP, Drug Form: INJ, Dosing Weight 81.818, kg, PRN, PRN B lood Glucose Results, Start date: 06/27/19 17:06:00 CDT, Duration: 30 day, Stop date: 07/27/19 16:05:00 COORDINATOR SKILL TRAINING PROGRAM, 0 Start Date: 06/27/19 Stop Date: 06/29/19 Status: Deleted Dextrose 50% Syringe 25 gm, 50 mL, Route: IVP, Drug Form: INJ, Dosing Weight 81.818, kg, PRN, PRN Blo od Glucose Results, Start date: 06/27/19 17:06:00 CDT, Duration: 30 day, Stop da te: 07/27/19 16:05:00 COORDINATOR SKILL TRAINING PROGRAM, 0 Start Date: 06/27/19 Stop Date: 06/29/19 Status: Deleted Dextrose 50% Syringe 12.5 gm, 25 mL, Route: IVP, Drug Form: INJ, Dosing Weight 81.818, kg, PRN, PRN B lood Glucose Results, Start date: 06/27/19 17:30:00 CDT, Duration: 30 day, Stop date: 07/27/19 16:29:00 COORDINATOR SKILL TRAINING PROGRAM, 0 Start Date: 06/27/19 Stop Date: 07/01/19 Status: Discontinued Dextrose 50% Syringe 25 gm, 50 mL, Route: IVP, Drug Form: INJ, Dosing Weight 81.818, kg, PRN, PRN Blo od Glucose Results, Start date: 06/27/19 17:30:00 CDT, Duration: 30 day, Stop da te: 07/27/19 16:29:00 COORDINATOR SKILL TRAINING PROGRAM, 0 Start Date: 06/27/19 Stop Date: 07/01/19 Status: Discontinued fentaNYL (ANES) Route: IV, Drug form: INJ, ONCE, Stop date: 06/27/19 18:38:00 CDT Start Date: 06/27/19 Stop Date: 06/27/19 Status: Completed glucagon 1 mg, Route: IM, Drug form: PDR/INJ, PRN, Dosing Weight 81.818, kg, PRN Blood Gl ucose Results, Start date: 06/27/19 17:06:00 CDT, Duration: 30 day, Stop date: 09/26/18 16:05:00 COORDINATOR SKILL TRAINING PROGRAM, 0 Start Date: 06/27/19 Stop Date: 06/29/19 Status: Deleted glucagon 1 mg, Route: IM, Drug form: PDR/INJ, PRN, Dosing Weight 81.818, kg, PRN Blood Gl ucose Results, Start date: 06/27/19 17:30:00 CDT, Duration: 30 day, Stop date: 09/26/18 16:29:00 COORDINATOR SKILL TRAINING PROGRAM, 0 Start Date: 06/27/19 Stop Date: 07/01/19 Status: Discontinued glycopyrrolate (ANES) Route: IV, Drug form: INJ, ONCE, Stop date: 06/27/19 19:26:00 CDT Start Date: 06/27/19 Stop Date: 06/27/19 Status: Completed Insulin regular 1 unit, 0.01 mL, Route: SUB-Q, Drug form: SOLN, Sliding Scale, Dosing Weight 81. 818, kg, PRN Blood Glucose Results, Start date: 06/27/19 17:30:00 CDT, Duration: 30 day, Stop date: 07/27/19 16:29:00 COORDINATOR SKILL TRAINING PROGRAM, 0 Notes: (Same as: Humulin R) Roll in palms of hands gently; Do not shake vigorous ly. WASTE: F/P - Black; E - Municipal Trash BinStable for 31 days at r oom temperature Expires in days from Date Start Date: 06/27/19 Stop Date: 07/01/19 Status: Discontinued Insulin regular 2 unit, 0.02 mL, Route: SUB-Q, Drug form: SOLN, Sliding Scale, Dosing Weight 81. 818, kg, PRN Blood Glucose Results, Start date: 06/27/19 17:30:00 CDT, Duration: 30 day, Stop date: 07/27/19 16:29:00 COORDINATOR SKILL TRAINING PROGRAM, 0 Notes: (Same as: Humulin R) Roll in palms of hands gently; Do not shake vigorous ly. WASTE: F/P - Black; E - Municipal Trash BinStable for [address] [facility] Expires in days from Date Start Date: 06/27/19 Stop Date: 07/01/19 Status: Discontinued Insulin regular 3 unit, 0.03 mL, Route: SUB-Q, Drug form: SOLN, Sliding Scale, Dosing Weight 81. 818, kg, PRN Blood Glucose Results, Start date: 06/27/19 17:30:00 CDT, Duration: 30 day, Stop date: 07/27/19 16:29:00 COORDINATOR SKILL TRAINING PROGRAM, 0 Notes: (Same as: Humulin R) Roll in palms of hands gently; Do not shake vigorous ly. WASTE: F/P - Black; E - Municipal Trash BinStable for [address] [facility] Expires in days from Date Start Date: 06/27/19 Stop Date: 07/01/19 Status: Discontinued Insulin regular 4 unit, 0.04 mL, Route: SUB-Q, Drug form: SOLN, Sliding Scale, Dosing Weight 81. 818, kg, PRN Blood Glucose Results, Start date: 06/27/19 17:30:00 CDT, Duration: 30 day, Stop date: 07/27/19 16:29:00 COORDINATOR SKILL TRAINING PROGRAM, 0 Notes: (Same as: Humulin R) Roll in palms of hands gently; Do not shake vigorous ly. WASTE: F/P - Black; E - Municipal Trash BinStable for 31 days at [facility] temperature Expires in days from Date Start Date: 06/27/19 Stop Date: 07/01/19 Status: Discontinued Insulin regular 5 unit, 0.05 mL, Route: SUB-Q, Drug form: SOLN, Sliding Scale, Dosing Weight 81. 818, kg, PRN Blood Glucose Results, Start date: 06/27/19 17:30:00 CDT, Duration: 30 day, Stop date: 07/27/19 16:29:00 COORDINATOR SKILL TRAINING PROGRAM, 0 Notes: (Same as: Humulin R) Roll in palms of hands gently; Do not shake vigorous ly. WASTE: F/P - Black; E - Municipal Trash BinStable for 31 days at [facility] temperature Expires in days from Date Start Date: 06/27/19 Stop Date: 07/01/19 Status: Discontinued Lactated Ringers Injection IV (ANES) 1000 mL Route: IV, Total Volume: 1,000, Start date: 06/27/19 17:32:00 CDT, Stop date: 18:32:00 CDT Start Date: 06/27/19 Stop Date: 06/27/19 Status: Completed Lasix 40 mg oral tablet 40 mg, 1 tab, Route: PEG, Drug form: TAB, Daily, Dosing Weight 81.818, kg, Start date: 06/28/19 9:00:00 CDT, Duration: 30 day, Stop date: 07/27/19 9:00:00 COORDINATOR SKILL TRAINING PROGRAM, 0 Notes: (Same as: Lasix) May cause GI upset. Give with food or milk. Start Date: 06/28/19 Stop Date: 07/01/19 Status: Discontinued levothyroxine 150 microgram, 1 tab, Route: PEG, Drug form: TAB, Daily, Dosing Weight 81.818, k g, Start date: 06/28/19 9:00:00 CDT, Duration: 30 day, Stop date: 07/27/19 9:00: 00 COORDINATOR SKILL TRAINING PROGRAM, 0 Notes: Take 1 hour before or 2 hours after meal; Enteral feeds may interefere wi th the absorption of this medication. (Same as: Levothroid) Start Date: 06/28/19 Stop Date: 07/01/19 Status: Discontinued levothyroxine 175 mcg (0.175 mg) oral tablet 175 microgram = 1 tab, PO, Daily, # 15 tab, 0 Refill(s) Start Date: 06/29/19 Status: Ordered lidocaine (ANES) Route: IV, Drug form: INJ, ONCE, Stop date: 06/27/19 18:33:00 CDT Start Date: 06/27/19 Stop Date: 06/27/19 Status: Completed melatonin 3 mg, 1 tab, Route: PO, Drug form: TAB, Bedtime, Dosing Weight 81.818, kg, PRN I nsomnia, Start date: 06/27/19 21:38:00 CDT, Duration: 30 day, Stop date: 21:37:00 COORDINATOR SKILL TRAINING PROGRAM, 0 Notes: (Same as: Melatonin) Start Date: 06/27/19 Stop Date: 06/29/19 Status: Discontinued melatonin 3 mg, 1 tab, Route: PEG, Drug form: TAB, Bedtime, Dosing Weight 81.818, kg, PRN Insomnia, Start date: 06/27/19 17:06:00 CDT, Duration: 30 day, Stop date: 17:05:00 COORDINATOR SKILL TRAINING PROGRAM, 0 Notes: (Same as: Melatonin) Start Date: 06/27/19 Stop Date: 07/01/19 Status: Discontinued metoclopramide 5 mg oral tablet 5 mg = 1 tab, PO, Daily, # 30 tab, 0 Refill(s) Start Date: 06/29/19 Stop Date: 07/01/19 Status: Discontinued naloxone 0.2 mg, 0.5 mL, Route: IVP, Drug form: INJ, Q5Min, Dosing Weight 81.818, kg, PRN Narcotic Reversal, Start date: 06/27/19 21:38:00 CDT, Duration: 3 doses or time s, Stop date: Limited # of times, 0 Notes: Same as Narcan Start Date: 06/27/19 Stop Date: 07/01/19 Status: Discontinued neostigmine (ANES) Route: IV, Drug form: INJ, ONCE, Stop date: 06/27/19 19:26:00 CDT Start Date: 06/27/19 Stop Date: 06/27/19 Status: Completed ondansetron 4 mg, 2 mL, Route: IVP, Drug form: INJ, Q6H, Dosing Weight 81.818, kg, PRN Nause a & Vomiting, Start date: 06/27/19 17:06:00 CDT, Duration: 30 day, Stop date: 07/27/19 17:05:00 COORDINATOR SKILL TRAINING PROGRAM, 0 Notes: (Same as: Adelfo) MEDICATION WASTE Product Size: 4 mgProduct Was manuela: ___ mg Start Date: 06/27/19 Stop Date: 07/01/19 Status: Discontinued ondansetron (ANES) Route: IV, Drug form: INJ, ONCE, Stop date: 06/27/19 19:26:00 CDT Start Date: 06/27/19 Stop Date: 06/27/19 Status: Completed oxyCODONE 5 mg immediate release 5 mg, 1 tab, Route: PO, Drug form: TAB, Q4H, Dosing Weight 81.818, kg, PRN Pain Score 4-6, Start date: 06/27/19 21:38:00 CDT, Duration: 5 day, Stop date: 21:37:00 CDT, 0 Notes: (Same as: Roxicodone) Start Date: 06/27/19 Stop Date: 07/01/19 Status: Discontinued oxyCODONE 5 mg immediate release 10 mg, 2 tab, Route: PO, Drug form: TAB, Q4H, Dosing Weight 81.818, kg, PRN Pain Score 7-10, Start date: 06/27/19 21:38:00 CDT, Duration: 5 day, Stop date: 06/19 01/05 21:37:00 CDT, 0 Notes: (Same as: Roxicodone) Start Date: 06/27/19 Stop Date: 07/01/19 Status: Discontinued phenylephrine (ANES) Route: IV, Drug form: INJ, ONCE, Stop date: 06/27/19 18:23:00 CDT Start Date: 06/27/19 Stop Date: 06/27/19 Status: Completed polyethylene glycol 3350 17 gm, 1 pkt, Route: PEG, Drug form: PWDR, Daily, Dosing Weight 81.818, kg, Star t date: 06/28/19 9:00:00 CDT, Duration: 30 day, Stop date: 07/27/19 9:00:00 COORDINATOR SKILL TRAINING PROGRAM, 0 Notes: Dissolve in 8 oz of water or juice.(Same as: Miralax) Start Date: 06/28/19 Stop Date: 07/01/19 Status: Discontinued propofol (ANES) Route: IV, Drug form: INJ, ONCE, Stop date: 06/27/19 18:33:00 CDT Start Date: 06/27/19 Stop Date: 06/27/19 Status: Completed rocuronium (ANES) Route: IV, Drug form: INJ, ONCE, Stop date: 06/27/19 18:23:00 CDT Start Date: 06/27/19 Stop Date: 06/27/19 Status: Completed Saline Flush 0.9% 10 mL, Route: IVP, Drug Form: INJ, Dosing Weight 81.818, kg, PRN, PRN Line Flush , Start date: 06/27/19 15:12:00 CDT, Duration: 30 day, Stop date: 07/27/19 14:11 :00 COORDINATOR SKILL TRAINING PROGRAM, 0 Start Date: 06/27/19 Stop Date: 07/01/19 Status: Discontinued senna 17.6 mg, 10 mL, Route: PO, Drug Form: SYRP, Dosing Weight 81.818, kg, Bedtime, S tart date: 06/28/19 21:00:00 CDT, Duration: 30 day, Stop date: 07/27/19 21:00:00 COORDINATOR SKILL TRAINING PROGRAM, 0 Notes: (Same as: Senokot) Start Date: 06/28/19 Stop Date: 07/01/19 Status: Discontinued Sodium Chloride 0.9% IV 1,000 mL 1,000 mL, Rate: 75 ml/hr, Infuse over: 13.3 hr, Route: IV, Dosing Weight 81.818 kg, Total Volume: 1,000, Start date: 06/27/19 23:57:00 CDT, Duration: 30 day, St op date: 07/27/19 23:56:00 COORDINATOR SKILL TRAINING PROGRAM, 2, m2, 0 Start Date: 06/27/19 Stop Date: 06/29/19 Status: Discontinued Results 1 2 3 Most recent to oldest [Reference Range]: 4.7 K/CMM (07/01/19 12:54 AM) 2.7 K/CMM (06/30/19 4:35 AM) 6.5 K/CMM (06/28/19 6:50 PM) Neutrophils # [1.5-8.1 K/CMM] 1.7 K/CMM (07/01/19 12:54 AM) 1.6 K/CMM (06/30/19 4:35 AM) 2.1 K/CMM (06/28/19 6:50 PM) Lymphocytes # [1.0-5.5 K/CMM] 0.5 K/CMM (07/01/19 12:54 AM) 0.3 K/CMM (06/30/19 4:35 AM) 0.5 K/CMM (06/28/19 6:50 PM) Monocytes # [0.0-0.8 K/CMM] 0.2 K/CMM (07/01/19 12:54 AM) 0.2 K/CMM (06/30/19 4:35 AM) 0.2 K/CMM (06/28/19 6:50 PM) Eosinophils # [0.0-0.5 K/CMM] Normal (06/27/19 3:54 PM) Plt Morph [Normal] Negative *NA* (06/28/19 6:50 PM) HIV Ag/Ab 4th Gen [Negative] 74 mL/min/1.73m2 1 *NA* (07/01/19 12:54 AM) 77 mL/min/1.73m2 2 *NA* (06/28/19 6:50 PM) 76 mL/min/1.73m2 3 *NA* (06/27/19 3:54 PM) eGFR A NEG *Unknown* (06/27/19 3:54 PM) ABO/Rh 1.2 (06/28/19 6:50 PM) A/G Ratio [0.7-1.6] Anti-K *Unknown* (06/27/19 3:54 PM) AB Int Positive 4 (06/27/19 3:54 PM) Antibody Scrn 3.7 g/dL (06/28/19 6:50 PM) Albumin Lvl [3.5-5.0 g/dL] 112 unit/L (06/28/19 6:50 PM) Alk Phos [39-136 unit/L] 15 unit/L (06/28/19 6:50 PM) ALT [0-65 unit/L] 10.7 mEq/L (07/01/19 12:54 AM) 14.5 mEq/L (06/28/19 6:50 PM) 15.0 mEq/L (06/27/19 3:54 PM) AGAP [10.0-20.0 mEq/L] 13 unit/L (06/28/19 6:50 PM) AST [0-37 unit/L] 18 (06/28/19 6:50 PM) B/C Ratio [6-25] 0.6 % (07/01/19 12:54 AM) 0.4 % (06/30/19 4:35 AM) 0.3 % (06/28/19 6:50 PM) Basophils [0.0-1.0 %] 26 mg/dL *HI* (07/01/19 12:54 AM) 14 mg/dL (06/28/19 6:50 PM) 15 mg/dL (06/27/19 3:54 PM) BUN [7-22 mg/dL] 9.5 mg/dL (07/01/19 12:54 AM) 9.0 mg/dL (06/28/19 6:50 PM) 10.5 mg/dL (06/27/19 3:54 PM) Calcium Lvl [8.5-10.5 mg/dL] 105 mEq/L (07/01/19 12:54 AM) 103 mEq/L (06/28/19 6:50 PM) 104 mEq/L (06/27/19 3:54 PM) Chloride Lvl [95-109 mEq/L] 29 mEq/L (07/01/19 12:54 AM) 27 mEq/L (06/28/19 6:50 PM) 26 mEq/L (06/27/19 3:54 PM) CO2 [24-32 mEq/L] 111 ug/dl 5 *NA* (06/28/19 6:50 PM) Copper Lvl [72-166 ug/dl] 0.80 mg/dL (07/01/19 12:54 AM) 0.78 mg/dL (06/28/19 6:50 PM) 0.79 mg/dL (06/27/19 3:54 PM) Creatinine Lvl [0.50-1.40 mg/dL] 3.4 % (07/01/19 12:54 AM) 4.2 % *HI* (06/30/19 4:35 AM) 2.0 % (06/28/19 6:50 PM) Eosinophils [0.0-4.0 %] 595 ng/mL *HI* (06/28/19 6:50 PM) Ferritin Lvl [5-204 ng/mL] 46.0 ng/mL (06/28/19 6:50 PM) Folate Lvl [>=3.0 ng/mL] 3.0 g/dL (06/28/19 6:50 PM) Globulin [2.7-4.2 g/dL] 102 mg/dL *HI* (07/01/19 12:54 AM) 78 mg/dL (06/28/19 6:50 PM) 101 mg/dL *HI* (06/27/19 3:54 PM) Glucose Lvl [70-99 mg/dL] 137 mg/dL (06/28/19 6:50 PM) Haptoglobin [16-200 mg/dL] Negative *NA* (06/28/19 6:50 PM) Hep A IgM [Negative] Negative *NA* (06/28/19 6:50 PM) Hep B Core IgM [Negative] Negative *NA* (06/28/19 6:50 PM) Hep Bs Ag [Negative] 35.6 % *LOW* (07/01/19 12:54 AM) 32.5 % *LOW* (06/30/19 4:35 AM) 35.1 % *LOW* (06/28/19 6:50 PM) Hct [36.0-48.0 %] Negative *NA* (06/28/19 6:50 PM) Hep C Ab [Negative] 11.8 g/dL *LOW* (07/01/19 12:54 AM) 10.8 g/dL *LOW* (06/30/19 4:35 AM) 11.5 g/dL *LOW* (06/28/19 6:50 PM) Hgb [12.0-16.0 g/dL] 0.99 (06/27/19 3:54 PM) INR [0.85-1.17] 3.7 mEq/L (07/01/19 12:54 AM) 3.5 mEq/L (06/28/19 6:50 PM) 4.0 mEq/L (06/27/19 3:54 PM) Potassium Lvl [3.5-5.1 mEq/L] 203 unit/L *HI* (06/28/19 6:50 PM) LDH [98-192 unit/L] 23.3 % (07/01/19 12:54 AM) 32.5 % (06/30/19 4:35 AM) 22.0 % (06/28/19 6:50 PM) Lymphocytes [20.0-40.0 %] 30.7 pg (07/01/19 12:54 AM) 30.9 pg (06/30/19 4:35 AM) 30.6 pg (06/28/19 6:50 PM) MCH [27.0-31.0 pg] 33.1 g/dL (07/01/19 12:54 AM) 33.2 g/dL (06/30/19 4:35 AM) 32.9 g/dL (06/28/19 6:50 PM) MCHC [32.0-36.0 g/dL] 92.6 fL (07/01/19 12:54 AM) 93.0 fL (06/30/19 4:35 AM) 92.9 fL (06/28/19 6:50 PM) MCV [80.0-98.0 fL] 7.5 % (07/01/19 12:54 AM) 7.0 % (06/30/19 4:35 AM) 5.6 % (06/28/19 6:50 PM) Monocytes [2.0-12.0 %] 12.4 fL *HI* (07/01/19 12:54 AM) 11.8 fL *HI* (06/30/19 4:35 AM) 15.5 fL *HI* (06/28/19 6:50 PM) MPV [7.4-10.4 fL] 141 mEq/L (07/01/19 12:54 AM) 141 mEq/L (06/28/19 6:50 PM) 141 mEq/L (06/27/19 3:54 PM) Sodium Lvl [135-145 mEq/L] Peripheral blood smear examination: Normocytic normochromic anemia. Schistocytes are not increased. Adequate WBCs with minimally reactive PMNs. Marked thrombocytopenia with presence of rare large forms. CPT: 60123 *NA* (06/28/19 3:04 AM) PB Smear Path Blood Bank Physician Service The patient is a 69 year old female, presenting for complication of tracheostomy. No recent transfusion history. 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 This antibody is directed against Gantt antigen of the Gantt blood group system. It is typically IgG in nature and forms in response to RBC sensitization via prior and/or transfusion. Anti-K is considered a clinically significant antibody; it has been associated with both hemolytic disease of the fetus/ and hemolytic transfusion reactions. Should RBC transfusion be necessary, K-negative crossmatch-compatible blood will be issued. Little difficulty in obtaining compatible blood is anticipated since 90% of the donor population lacks the K-antigen. The patient s electronic medical record has been reviewed for relevant information. I have reviewed the test results and concur with the resident, Dr. Becerra's interpretation. CPT: 93010-KB *NA* (06/27/19 3:54 PM) Path AB 21 K/CMM 6 *CRIT* (07/01/19 12:54 AM) 19 K/CMM 7 *CRIT* (06/30/19 4:35 AM) 31 K/CMM *LOW* (06/28/19 6:50 PM) Platelet [133-450 K/CMM] 65.2 % (07/01/19 12:54 AM) 55.9 % (06/30/19 4:35 AM) 70.1 % (06/28/19 6:50 PM) Segs [45.0-75.0 %] 6.7 g/dL (06/28/19 6:50 PM) Total Protein [6.4-8.4 g/dL] 12.9 seconds (06/27/19 3:54 PM) PT [12.0-14.7 seconds] 28.6 seconds (06/27/19 3:54 PM) PTT [22.9-35.8 seconds] 3.85 M/CMM *LOW* (07/01/19 12:54 AM) 3.49 M/CMM *LOW* (06/30/19 4:35 AM) 3.77 M/CMM *LOW* (06/28/19 6:50 PM) RBC [4.20-5.40 M/CMM] Normal (06/27/19 3:54 PM) RBC Morph [Normal] 12.2 % (07/01/19 12:54 AM) 12.2 % (06/30/19 4:35 AM) 12.4 % (06/28/19 6:50 PM) RDW [11.5-14.5 %] 0.4 mg/dL (06/28/19 6:50 PM) Bili Total [0.2-1.3 mg/dL] 455 pg/mL (06/28/19 6:50 PM) Vitamin B12 Lvl [254-1320 pg/mL] 7.3 K/CMM (07/01/19 12:54 AM) 4.8 K/CMM (06/30/19 4:35 AM) 9.3 K/CMM (06/28/19 6:50 PM) WBC [3.7-10.4 K/CMM] 20 K/CMM 8 *CRIT* (06/27/19 8:46 PM) Platelet Count Blue Top [133-450 K/CMM] 1Result Comment: The eGFR is calculated using the CKD-EPI formula. In most young, healthy individuals the eGFR will be >90 mL/min/1.73m2. The eGFR declines with age. An eGFR of 60-89 may be normal in some populations, particularly the elderly, for whom the CKD-EPI formula has not been extensively validated. Use of the eGFR is not recommended in the following populations: Individuals with unstable creatinine concentrations, including patients and those with serious co-morbid conditions. Patients with extremes in muscle mass or diet. The data above are obtained from the National Kid[employer] Disease Education Program ( [employer]) which additionally recommends that when the eGFR is used in patients with extremes of body mass index for purposes of drug dosing, the eGFR should be mul tiplied by the estimated BMI. 2Result Comment: The eGFR is calculated using the CKD-EPI formula. In most young, healthy individuals the eGFR will be >90 mL/min/1.73m2. The eGFR declines with age. An eGFR of 60-89 may be normal in some populations, particularly the elderly, for whom the CKD-EPI formula has not been extensively validated. Use of the eGFR is not recommended in the following populations: Individuals with unstable creatinine concentrations, including patients and those with serious co-morbid conditions. Patients with extremes in muscle mass or diet. The data above are obtained from the National Kid[employer] Disease Education Program ( NK[employer]) which additionally recommends that when the eGFR is used in patients with extremes of body mass index for purposes of drug dosing, the eGFR should be mul tiplied by the estimated BMI. 3Result Comment: The eGFR is calculated using the CKD-EPI formula. In most young, healthy individuals the eGFR will be >90 mL/min/1.73m2. The eGFR declines with age. An eGFR of 60-89 may be normal in some populations, particularly the elderly, for whom the CKD-EPI formula has not been extensively validated. Use of the eGFR is not recommended in the following populations: Individuals with unstable creatinine concentrations, including patients and those with serious co-morbid conditions. Patients with extremes in muscle mass or diet. The data above are obtained from the National Kid[employer] Disease Education Program ( NKDEP) which additionally recommends that when the eGFR is used in patients with extremes of body mass index for purposes of drug dosing, the eGFR should be mul tiplied by the estimated BMI. 4Result Comment: 06/27/2019 17:27 [id number] "Significant Findings of POS ABSC_ called to _Hang FUCHS at _06/27/2019 17:2 5_ by [email or web address]__. Read Back OK" 5Result Comment: This test was developed and its performance characteristics determined by [facility]. It has not been cleared or approved by the Food and Drug Administration. Detection Limit = 5 Performed At: [address] [id number] Jamie Santoyo MD Ph:[phone] 6Result Comment: Critical Result(s) called to Kristie Lindsay at 07/01/2019 02:23 by Muna. Read back OK. 7Result Comment: Critical Result(s) called to Zhen Walter at 06/30/2019 06:06 byAdria Read back OK. 8Result Comment: Critical Result(s) called to Zhen Swann at 06/27/2019 21:46 by LANNY. Read back OK. Immunizations No data available for this section Procedures Procedure Date Related Diagnosis Body Site Status Hip joint operations Completed Hip replacement1 Completed Hysterectomy Completed PEG - Percutaneous endoscopic gastrostomy Complet ed Tracheostomy Completed Five surgeries total Social History Social History Type Response Alcohol Past Smoking Status Never smoker; Exposure to T obacco Smoke None; Cigarette Smoking Last 365 Days No; Reg Smoking Cessation Counseli ng No entered on: 06/27/19 Assessment and Plan Extracted from: Title: Progress Note Author: Paulie Silva MD Date: 06/19 11/07 Pt is a 69 y/o F with PMH of fib romyalgia, IBS, hypothyroidism, GERD, DM Type II on orals, 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 She was seen by [facility] and dysphagia diet adjusted. She was also found to have a very low platelet count undergoing work up. 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 PBS reviewed. 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 Patient did choke on a piece of meat 06/29; will downgrade back to pureed for now 7.Acid reflux(K21.9) stable off meds 8.Chronic hypokalemia(E87.6) Stable 9.Chronic gout(M1A.9XX0) Allopurinol. No evidence of acute flare 10.Hypothyroid(E03.9) Continue Synthroid 11.Irritable bowel syndrome (IBS)(K58.9) Continue amitriptyline and a bowel regimen while on narcotics for pain. Prophylaxis SCD/teds Disposition Pending thrombocytopenia work up Heme consult Extracted from: Title: Hematology Consult Note Author: Smooth Shepherd MD Date: 06/29/19 #Thrombocytopenia of undetermined etiology - No clinical evidence of bleeding and no history of bleeding. Absent fever. - Clinically no splenomegaly. US showing borderlinehepatosplenomegaly. -Negativehepatitis panel and HIV. Negativealcohol abuse history. - Seems that thrombocytopenia has been present for long time and patient is following with outpatient patternmaker plastics. - Review of peripheral blood smear revealed normocytic normochromic anemia; no schistocytes; adequate WBCs with minimally reactive PMNs and marked thrombocytopenia with presence of rare large forms. No evidence of platelet clumping, MDD or blasts. - Noconcern for DIC or TTP. Normal kidney function. - No indication for platelet transfusion at the moment. - Advised patient to continue to follow up with her patternmaker plastics. Patient was staffed withhematology attending physician, Dr.Juneja POSADAS. Yasmin Suero MD PGY2 - Internal Medicine [facility] | [facility] e-mail: [email or web address]| pager: [phone] TEACHING PHYSICIAN ADDENDUM. I saw and personally examined the patient with the Resident, on 06/29/2019 and I have reviewed the note above and agree with the history, exam findings and the plan of care. 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 Going to the OR urgently with ENT for investigation/revision. 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) Ordered: Admit/Condition, 06/27/19 17:06:00 CDT, Status: Inpatient, IMU, Location: [facility], Expected LOS: 2 Midnights, Paulie Silva MD, Admit Review/Approve Yes, Isolation: No Isolation/Standard Precautions, Tracheal stoma stenosis | Complication of tracheostomy 2.Complication of tracheostomy(J95.00) ENT consulted To the OR urgently for intervention/revision Continue trach collar; maintain sats greater than 90% Ordered: Admit/Condition, 06/27/19 17:06:00 CDT, Status: Inpatient, IMU, Location: [facility], Expected LOS: 2 Midnights, Paulie Silva MD, Admit Review/Approve Yes, Isolation: No Isolation/Standard Precautions, Tracheal stoma stenosis | Complication of tracheostomy 3.Acquired thrombocytopenia(D69.6) Unclear etiology. No formerplatelet levels in our system Patient has an allergy to heparin but is unclear what this is. Potentially she has had thrombocytopenia forsome time. Type and screen ordered Transfusefor platelets less than 20k Send blue top to confirm plts ENT alerted to late arriving lab from OR 4.DM (diabetes mellitus), type 2(E11.9) Start sliding scale insulin-regular. Hold metformin 5.Fibromyalgia(M79.7) Continue amitriptyline Ordered: amitriptyline, 25 mg, 1 tab, Route: PEG, Drug form: TAB, Bedtime, Dosing Weight 81.818, kg, Start date: 06/27/19 21:00:00 CDT, Duration: 30 day, Stop date: 07/26/19 21:00:00 COORDINATOR SKILL TRAINING PROGRAM, 0 6.Dysphagia(R13.10) When patient is cleared for diet by ENT, patient may be able to resumepured withnectar thick liquids. PEG tube has been used recently for medications only. 7.Acid reflux(K21.9) Not currently on a PPI at home. Will monitor and treat symptomatic 8.Chronic hypokalemia(E87.6) Hold standing potassium supplementwhile admitted. Trend BMP. 9.Chronic gout(M1A.9XX0) Continue allopurinol. No evidence of acute flare. 10.Hypothyroid(E03.9) Continue Synthroid Ordered: levothyroxine, 150 microgram, 1 tab, Route: PEG, Drug form: TAB, Daily, Dosing Weight 81.818, kg, Start date: 06/28/19 9:00:00 CDT, Duration: 30 day, Stop date: 07/27/19 9:00:00 COORDINATOR SKILL TRAINING PROGRAM, 0 11.Irritable bowel syndrome (IBS)(K58.9) Continue amitriptyline and a bowel regimen while on narcotics for pain. Ordered: amitriptyline, 25 mg, 1 tab, Route: PEG, Drug form: TAB, Bedtime, Dosing Weight 81.818, kg, Start date: 06/27/19 21:00:00 CDT, Duration: 30 day, Stop date: 07/26/19 21:00:00 COORDINATOR SKILL TRAINING PROGRAM, 0 SCD/teds Home with home health trach supplies pending ENT clearance. Likely 2 midnights. Full admission. Addendum by Mouser, Contacted [facility] and unable to provide updated med list. They believe pt switched over to [facility] mail order Rx as her prescr iptions are all out-of-date but they do confirm a majority of MD on current list. Lasix is un certain. 06/28/2019 00:33 CDT
--- OUTSIDE RECORDS SUMMARY | 2020-02-10 01:54 | XMS REPORT | Summary of Care ---
Author Author [facility] Organization [facility] Address Unknown Phone Unavailable Encounter TRANG Souza(ROMEO) [id number] Date(s): 11/06/18 - 11/07/18 [facility] [address] [employer] provided by [facility] [employer] [facility] [place] [address]- Discharge Disposition: Home or Self Care Attending Physician: Sally Neff MD Referring Physician: Sally Neff MD Vital Signs 1 2 3 Most recent to oldest [Reference Range]: 175.26 cm (11/02/18 10:20 AM) Height 97.2 DegF (11/07/18 12:30 PM) 97.5 DegF (11/07/18 6:28 AM) 98.3 DegF (11/07/18 3:24 AM) Temperature Oral [96.4-99.1 DegF] 98/61 mmHg (11/07/18 12:30 PM) 104/64 mmHg (11/07/18 6:28 AM) 134/72 mmHg (11/07/18 3:24 AM) Blood Pressure [90-140/60-90 mmHg] 18 BRMIN (11/07/18 12:30 PM) 20 BRMIN (11/07/18 6:28 AM) 21 BRMIN *HI* (11/07/18 3:24 AM) Respiratory Rate [14-20 BRMIN] 61 bpm (11/07/18 12:30 PM) 70 bpm (11/07/18 6:28 AM) 122 bpm *HI* (11/06/18 12:15 PM) Peripheral Pulse Rate [60-100 bpm] 86.364 kg (11/06/18 12:50 PM) Weight 28.12 m2 (11/06/18 12:50 PM) Body Mass Index Problem List Condition Effective Dates Status Health Status Informan t Arthritis(Confirmed) Active Benign Active hypertension(Confirm ed) Diabetes(Confirmed) Active Fibromyalgia(Confirm Active ed) Acid Active reflux(Confirmed) Generalized Active obesity(Confirmed) Heart Active murmur(Confirmed) Hypothyroid(Confirme Active d) Irritable bowel Active syndrome (IBS)(Confirmed) Allergies, Adverse Reactions, Alerts Substance Reaction Severity Status penicillins Active heparin Active Other Environmental Active Allergy1 1Titanium Medications acetaminophen 650 mg, 20.3 mL, Route: PO, Drug form: LIQ, Q8H, Dosing Weight 86.364, kg, Start date: 11/07/18 0:00:00 CHILD LIFE SPECIALIST, Duration: 30 day, Stop date: 12/06/18 16:00:00 CDT Notes: Max acetaminophen = 4000mg/day (4 gm/day). (Same as: Tylenol) Start Date: 11/07/18 Stop Date: 11/07/18 Status: Discontinued allopurinol 100 mg, 1 tab, Route: PEG, Drug form: TAB, Daily, Dosing Weight 86.364, kg, Star t date: 11/07/18 9:00:00 CHILD LIFE SPECIALIST, Duration: 30 day, Stop date: 12/06/18 9:00:00 CDT Notes: (Same as: Zyloprim) Start Date: 11/07/18 Stop Date: 11/07/18 Status: Discontinued allopurinol 100 mg oral tablet 100 mg = 1 tab, PEG, Daily, # 60 tab, 0 Refill(s) Start Date: 11/02/18 Status: Suspended amitriptyline 25 mg, 1 tab, Route: PEG, Drug form: TAB, Bedtime, Dosing Weight 86.364, kg, Sta rt date: 11/06/18 21:00:00 CHILD LIFE SPECIALIST, Duration: 30 day, Stop date: 12/05/18 21:00:00 C DT Notes: (Same as: Elavil) Start Date: 11/06/18 Stop Date: 11/07/18 Status: Discontinued ANES acetaminophen 1,000 mg, 2 tab, Route: PO, Drug form: TAB, ONCE, Dosing Weight 86.364, kg, PRN Pain Score 1-3, Start date: 11/06/18 16:16:00 CHILD LIFE SPECIALIST Notes: Max acetaminophen 4000 mg/day (4 gm/day). (Same as: Tylenol Extra Streng ) Start Date: 11/06/18 Stop Date: 11/06/18 Status: Discontinued ANES esmolol 10 mg, 1 mL, Route: IVP, Drug form: INJ, Q5Min, Dosing Weight 86.364, kg, PRN Ot her -See Comment, Start date: 11/06/18 16:16:00 CHILD LIFE SPECIALIST, Duration: 5 doses or times, Stop date: 11/07/18 0:00:00 CHILD LIFE SPECIALIST Notes: (Same as: Brevibloc) Start Date: 11/06/18 Stop Date: 11/06/18 Status: Discontinued ANES flumazenil 0.2 mg, 2 mL, Route: IVP, Drug form: INJ, PRN, Dosing Weight 86.364, kg, PRN Flex zodiazepine Reversal, Initial dose, Start date: 11/06/18 16:16:00 CHILD LIFE SPECIALIST, Duration: 30 day, Stop date: 12/06/18 17:15:00 CDT Notes: (Same as: Romazicon) Start Date: 11/06/18 Stop Date: 11/06/18 Status: Discontinued ANES labetalol 10 mg, 2 mL, Route: IVP, Drug form: INJ, Q5Min, Dosing Weight 86.364, kg, PRN El evated BP, Start date: 11/06/18 16:16:00 CHILD LIFE SPECIALIST, Duration: 5 doses or times, Stop d ate: 11/07/18 0:00:00 CHILD LIFE SPECIALIST Start Date: 11/06/18 Stop Date: 11/06/18 Status: Discontinued ANES naloxone 0.4 mg, 1 mL, Route: IVP, Drug form: INJ, Q2MIN, Dosing Weight 86.364, kg, PRN N arcotic Reversal, Start date: 11/06/18 16:16:00 CHILD LIFE SPECIALIST, Duration: 8 doses or times, Stop date: 11/07/18 0:00:00 CHILD LIFE SPECIALIST Notes: Same as Narcan Start Date: 11/06/18 Stop Date: 11/06/18 Status: Discontinued ANES ondansetron 4 mg, 2 mL, Route: IVP, Drug form: INJ, ONCE, Dosing Weight 86.364, kg, PRN Naus ea & Vomiting, Start date: 11/06/18 16:16:00 CHILD LIFE SPECIALIST Notes: (Same as: Zofran) MEDICATION WASTE Product Size: 4 mgProduct Was manuela: ___ mg Start Date: 11/06/18 Stop Date: 11/06/18 Status: Discontinued ANES oxyCODONE 10 mg, 2 tab, Route: PO, Drug form: TAB, Q4H, Dosing Weight 86.364, kg, PRN Pain Score 7-10, Start date: 11/06/18 16:16:00 CHILD LIFE SPECIALIST, Duration: 30 day, Stop date: 16:15:00 CDT Notes: (Same as: Roxicodone) Start Date: 11/06/18 Stop Date: 11/06/18 Status: Discontinued ANES oxyCODONE 5 mg, 1 tab, Route: PO, Drug form: TAB, Q4H, Dosing Weight 86.364, kg, PRN Pain Score 4-6, Start date: 11/06/18 16:16:00 CHILD LIFE SPECIALIST, Duration: 30 day, Stop date: 12/06 16:15:00 CDT Notes: (Same as: Roxicodone) Start Date: 11/06/18 Stop Date: 11/06/18 Status: Discontinued ANES promethazine 6.25 mg, 0.25 mL, Route: IVPB, Drug form: INJ, ONCE, Dosing Weight 86.364, kg, P RN Nausea & Vomiting, Start date: 11/06/18 16:16:00 CHILD LIFE SPECIALIST Notes: Do not give IV push. (Same as: Phenergan) Start Date: 11/06/18 Stop Date: 11/06/18 Status: Discontinued dexamethasone (ANES) Route: IV, Drug form: INJ, ONCE, Stop date: 11/06/18 16:11:00 CHILD LIFE SPECIALIST Start Date: 11/06/18 Stop Date: 11/06/18 Status: Completed dicyclomine 20 mg, 10 mL, Route: PEG, Drug form: SYRP, QID, Dosing Weight 86.364, kg, Start date: 11/06/18 21:00:00 CHILD LIFE SPECIALIST, Duration: 30 day, Stop date: 12/06/18 17:00:00 CDT Notes: (Same as:Bentyl) Start Date: 11/06/18 Stop Date: 11/07/18 Status: Discontinued docusate 100 mg, 10 mL, Route: PO, Drug form: LIQ, BID, Dosing Weight 86.364, kg, Start d ate: 11/06/18 17:00:00 CHILD LIFE SPECIALIST, Duration: 30 day, Stop date: 12/06/18 9:00:00 CDT Notes: (Same as: Colace) Start Date: 11/06/18 Stop Date: 11/07/18 Status: Discontinued fentaNYL (ANES) Route: IV, Drug form: INJ, ONCE, Stop date: 11/06/18 16:11:00 CHILD LIFE SPECIALIST Start Date: 11/06/18 Stop Date: 11/06/18 Status: Completed glycopyrrolate (ANES) Route: IV, Drug form: INJ, ONCE, Stop date: 11/06/18 16:15:00 CHILD LIFE SPECIALIST Start Date: 11/06/18 Stop Date: 11/06/18 Status: Completed Lactated Ringers Injection IV (ANES) 1000 mL Route: IV, Total Volume: 1,000, Start date: 11/06/18 15:16:00 CHILD LIFE SPECIALIST, Stop date: 16:16:00 CHILD LIFE SPECIALIST Start Date: 11/06/18 Stop Date: 11/06/18 Status: Completed Lasix 40 mg oral tablet 40 mg = 1 tab, PEG, Daily, # 30 tab, 0 Refill(s) Start Date: 11/02/18 Status: Suspended Lasix 40 mg oral tablet 40 mg, 1 tab, Route: PEG, Drug form: TAB, Daily, Dosing Weight 86.364, kg, Start date: 11/07/18 9:00:00 CHILD LIFE SPECIALIST, Duration: 30 day, Stop date: 12/06/18 9:00:00 CDT Notes: (Same as: Lasix) May cause GI upset. Give with food or milk. Start Date: 11/07/18 Stop Date: 11/07/18 Status: Discontinued levothyroxine 150 microgram, 1 tab, Route: PEG, Drug form: TAB, Daily, Dosing Weight 86.364, k g, Start date: 11/07/18 9:00:00 CHILD LIFE SPECIALIST, Duration: 30 day, Stop date: 12/06/18 9:00: 00 CDT Notes: Take 1 hour before or 2 hours after meal; Enteral feeds may interefere wi th the absorption of this medication. (Same as: Levothroid) Start Date: 11/07/18 Stop Date: 11/07/18 Status: Discontinued levothyroxine 150 mcg (0.15 mg) oral tablet 150 microgram = 1 tab, PEG, Daily, # 30 tab, 0 Refill(s) Start Date: 11/02/18 Status: Suspended metFORMIN 500 mg oral tablet 1,000 mg, 2 tab, Route: PEG, Drug form: TAB, BID-Meals, Dosing Weight 86.364, kg , Start date: 11/07/18 8:00:00 CHILD LIFE SPECIALIST, Duration: 30 day, Stop date: 12/06/18 17:00: 00 CDT Notes: (Same as: Glucophage) Take with meal Start Date: 11/07/18 Stop Date: 11/07/18 Status: Discontinued neostigmine (ANES) Route: IV, Drug form: INJ, ONCE, Stop date: 11/06/18 16:15:00 CHILD LIFE SPECIALIST Start Date: 11/06/18 Stop Date: 11/06/18 Status: Completed ondansetron 4 mg, 2 mL, Route: IVP, Drug form: INJ, Q6H, Dosing Weight 86.364, kg, PRN Nause a & Vomiting, Start date: 11/06/18 17:00:00 CHILD LIFE SPECIALIST, Duration: 30 day, Stop date: 12/06/18 16:59:00 CDT Notes: (Same as: Adelfo) MEDICATION WASTE Product Size: 4 mgProduct Was manuela: ___ mg Start Date: 11/06/18 Stop Date: 11/07/18 Status: Discontinued ondansetron (ANES) Route: IV, Drug form: INJ, ONCE, Stop date: 11/06/18 16:15:00 CHILD LIFE SPECIALIST Start Date: 11/06/18 Stop Date: 11/06/18 Status: Completed potassium chloride 20 mEq, 15 mL, Route: PEG, Drug form: LIQ, Daily, Dosing Weight 86.364, kg, Star t date: 11/07/18 9:00:00 CHILD LIFE SPECIALIST, Duration: 30 day, Stop date: 12/06/18 9:00:00 CDT Notes: (Same as: Potassium Chloride) Start Date: 11/07/18 Stop Date: 11/07/18 Status: Discontinued potassium chloride 20 mEq oral tablet, extended release 20 mEq = 1 tab, PEG, Daily, # 30 tab, 3 Refill(s) Start Date: 11/02/18 Status: Suspended propofol (ANES) Route: IV, Drug form: INJ, ONCE, Stop date: 11/06/18 16:11:00 CHILD LIFE SPECIALIST Start Date: 11/06/18 Stop Date: 11/06/18 Status: Completed rocuronium (ANES) Route: IV, Drug form: INJ, ONCE, Stop date: 11/06/18 15:56:00 CHILD LIFE SPECIALIST Start Date: 11/06/18 Stop Date: 11/06/18 Status: Completed sugammadex 200 mg, 2 mL, Route: IV, Drug form: SOLN, ONCALL, Start date: 11/06/18 14:59:00 CHILD LIFE SPECIALIST, Duration: 1 doses or times, Stop date: 11/06/18 14:59:00 CHILD LIFE SPECIALIST Notes: (Same as: Georgetteion) Start Date: 11/06/18 Stop Date: 11/07/18 Status: Discontinued tramadol 50 mg oral tablet 50 mg, 1 tab, Route: PO, Drug form: TAB, Q4H, Dosing Weight 86.364, kg, PRN Pain Score 1-3, Start date: 11/06/18 17:00:00 CHILD LIFE SPECIALIST, Duration: 30 day, Stop date: 11/18 16:59:00 CDT Notes: Not to exceed 400mg/day. (Same As: Ultram) Start Date: 11/06/18 Stop Date: 11/07/18 Status: Discontinued Tylenol Arthritis Caplet 650 mg oral tablet, extended release 1,300 mg = 2 tab, PO, Q8H, 0 Refill(s) Start Date: 11/02/18 Status: Suspended Results ELECTROLYTES Most recent to 1 oldest [Reference Range]: Sodium Lvl [135-145 135 mEq/L mEq/L] (11/06/18 12:44 PM) Potassium Lvl 4.9 mEq/L [3.5-5.1 mEq/L] (11/06/18 12:44 PM) Chloride Lvl [95-109 109 mEq/L mEq/L] (11/06/18 12:44 PM) CO2 [24-32 mEq/L] 18 mEq/L *LOW* (11/06/18 12:44 PM) AGAP [10.0-20.0 12.9 mEq/L mEq/L] (11/06/18 12:44 PM) CHEM PANEL Most recent to 1 oldest [Reference Range]: Creatinine Lvl 0.80 mg/dL [0.50-1.40 mg/dL] (11/06/18 12:44 PM) eGFR 75 mL/min/1.73m2 1 *NA* (11/06/18 12:44 PM) BUN [7-22 mg/dL] 36 mg/dL *HI* (11/06/18 12:44 PM) Glucose Lvl [70-99 94 mg/dL mg/dL] (11/06/18 12:44 PM) Calcium Lvl 9.9 mg/dL [8.5-10.5 mg/dL] (11/06/18 12:44 PM) 1Result Comment: The eGFR is calculated using [...] be mul tiplied by the estimated BMI. Immunizations No data available for this section Procedures Procedure Date Related Diagnosis Body Site Status Hip joint operations Completed Hip replacement1 Completed Hysterectomy Completed PEG - Percutaneous endoscopic gastrostomy Complet ed Tracheostomy Completed [id number] Five surgeries total Social History Social History Type Response Alcohol Past Smoking Status Never smoker; Exposure to T obacco Smoke None; Cigarette Smoking Last 365 Days No; Reg Smoking Cessation Counseli ng No entered on: 11/06/18 Assessment and Plan Extracted from: Title: ORL/HNS PARI MUTUAL TICKET CHECKER note Author: Tamara Caro PARI MUTUAL TICKET CHECKER Date : 11/07/18 PARI MUTUAL TICKET CHECKER was called to BS by RN 2/ patient co mplain of "throat closing" despite having trach in place. Patient had been suctioned by RT, minimal secretions. SPO2 99%, HR 70, BBS are noted to be clear. Scope revealed no obstruction, open airway. Patient has recovered to her own baseline. Will continue with plans for MBS today and discharge planning as appropriate.RN and CN updated.
--- OUTSIDE RECORDS SUMMARY | 2020-02-10 01:54 | XMS REPORT | Summary of Care ---
Author Author [facility] Organization [facility] Address Unknown Phone Unavailable Encounter TRANG Souza(ROMEO) [id number] Date(s): 06/15/16 - 06/15/16 [facility] [address] [place] [address]- Discharge Disposition: Home or Self Care Attending Physician: Joseph Hoffman MD Referring Physician: Joseph Hoffman MD Vital Signs 1 2 3 Most recent to oldest [Reference Range]: 172.72 cm (06/14/16 12:23 PM) Height 98.9 DegF (06/14/16 12:25 PM) Temperature Oral [96.4-99.1 DegF] 134/88 mmHg (06/15/16 4:17 PM) 113/71 mmHg (06/15/16 4:12 PM) 113/71 mmHg (06/15/16 3:55 PM) Blood Pressure [90-140/60-90 mmHg] 23 BRMIN *HI* (06/15/16 4:17 PM) 16 BRMIN (06/15/16 4:12 PM) 22 BRMIN *HI* (06/15/16 3:55 PM) Respiratory Rate [14-20 BRMIN] 80 bpm (06/14/16 12:25 PM) Peripheral Pulse Rate [60-100 bpm] 152.273 kg (06/14/16 12:23 PM) Weight 51.04 m2 (06/14/16 12:23 PM) Body Mass Index Problem List Condition Effective Dates Status Health Status Informan t Arthritis(Confirmed) Active Benign Active hypertension(Confirm ed) Diabetes(Confirmed) Active Fibromyalgia(Confirm Active ed) Acid Active reflux(Confirmed) Generalized Active obesity(Confirmed) Heart Active murmur(Confirmed) Hypothyroid(Confirme Active d) Irritable bowel Active syndrome (IBS)(Confirmed) Allergies, Adverse Reactions, Alerts Substance Reaction Severity Status penicillins Active Medications albuterol-ipratropium 2.5-0.5 mg inhalation solution 3 mL, Route: NEB, Dosing Weight 152.273, kg, ONCE, STAT, Start date: 06/15/16 13 :20:00 CDT, Stop date: 06/15/16 13:20:00 CDT Start Date: 06/15/16 Stop Date: 06/15/16 Status: Discontinued amitriptyline 25 mg oral tablet 25 mg = 1 tab, PO, Bedtime, # 30 tab, 1 Refill(s) Start Date: 06/14/16 Status: Ordered dicyclomine 20 mg oral tablet 20 mg = 1 tab, PO, QID, # 28 tab, 0 Refill(s) Start Date: 06/14/16 Stop Date: 06/21/16 Status: Ordered Januvia 100 mg oral tablet 100 mg = 1 tab, PO, Daily, # 30 tab, 0 Refill(s) Start Date: 06/14/16 Status: Ordered Lactated Ringers Injection IV 1000 mL 1,000 mL, Rate: 25 ml/hr, Infuse over: 40 hr, Route: IV, Dosing Weight 152.273 k g, Total Volume: 1,000, Start date: 06/15/16 13:20:00 CDT, Duration: 30 day, Sto p date: 07/15/16 13:19:00 CDT Start Date: 06/15/16 Stop Date: 06/15/16 Status: Discontinued losartan 100 mg oral tablet 100 mg = 1 tab, PO, Daily, # 30 tab, 0 Refill(s) Start Date: 06/14/16 Status: Ordered metFORMIN 500 mg oral tablet 1,000 mg = 2 tab, PO, BID-Meals, # 30 tab, 0 Refill(s) Start Date: 06/14/16 Status: Ordered omeprazole 40 mg oral delayed release capsule 40 mg = 1 cap, PO, Daily, # 30 cap, 0 Refill(s) Start Date: 06/14/16 Status: Ordered Sodium Chloride 0.9% IV 500 mL 500 mL, Rate: 25 ml/hr, Infuse over: 20 hr, Route: IV, Dosing Weight 152.273 kg, Total Volume: 500, Start date: 06/15/16 13:20:00 CDT, Duration: 30 day, Stop da te: 07/15/16 13:19:00 CDT Start Date: 06/15/16 Stop Date: 06/15/16 Status: Discontinued Results ELECTROLYTES Most recent to 1 oldest [Reference Range]: Sodium Lvl [135-145 135 mEq/L mEq/L] (06/14/16 12:55 PM) Potassium Lvl 5.1 mEq/L [3.5-5.1 mEq/L] (06/14/16 12:55 PM) Chloride Lvl [95-109 103 mEq/L mEq/L] (06/14/16 12:55 PM) CO2 [24-32 mEq/L] 26 mEq/L (06/14/16 12:55 PM) AGAP [10.0-20.0 11.1 mEq/L mEq/L] (06/14/16 12:55 PM) CHEM PANEL Most recent to 1 oldest [Reference Range]: Creatinine Lvl 0.80 mg/dL [0.50-1.40 mg/dL] (06/14/16 12:55 PM) eGFR 76 mL/min/1.73m2 1 *NA* (06/14/16 12:55 PM) BUN [7-22 mg/dL] 11 mg/dL (06/14/16 12:55 PM) Glucose Lvl [70-99 112 mg/dL mg/dL] *HI* (06/14/16 12:55 PM) Calcium Lvl 9.2 mg/dL [8.5-10.5 mg/dL] (06/14/16 12:55 PM) 1Result Comment: The eGFR is calculated [...] Procedures Procedure Date Related Diagnosis Body Site Hip joint operations Hip replacement1 Hysterectomy [id number] Five surgeries total Social History Social History Type Response Alcohol Past Smoking Status Never smoker; Exposure to T obacco Smoke None; Cigarette Smoking Last 365 Days No; Reg Smoking Cessation Counseli ida No Assessment and Plan No data available for this section
--- OUTSIDE RECORDS SUMMARY | 2020-02-10 01:54 | XMS REPORT | Continuity of Care Document ---
Author Author Irene Chaudhary TDX Exchange, MOJGAN [facility] [employer] Information Exchange Address Unknown Phone Unavailable Care Team Providers Care Authorization Nurse Name Role Phone [facility] Information Exchange Unavailable Un available Problems Problem Status Onset Date Classification Date Reported Comments Source TRACH Active 06/27/2019 [facility] TRACHEOSTOMY STATUS Active 09/08/2018 [facility] Other specified diseases of upper respiratory tract 08/17/2018 03/01/2019 [facility] Chaudhary UNK Active 0 05/19/2016 [facility] Atherosclerotic heart disease of elem coronary artery without angina pectoris 03/01/2019 [facility] Chaudhary Atherosclerosis of aorta 03/01/2019 [facility] Chaudhary Diaphragmatic hernia without obstruction or gangrene 03/01/2019 [facility] Chaudhary Arthritis (disorder) Active Problem 07/03/2019 [facility] Benign hypertension (disorder) Active Problem [facility] Diabetes mellitus (disorder) A ctive Problem [facility] Fibromyositis (disorder) Active Problem 07/03/2019 [facility] Gastroesophageal reflux disease (disorder) Active Problem 07/03/2019 [facility], [facility] Generalized obesity (disorder) Active Problem [facility] Heart murmur (finding) Active Problem 07/03/2019 [facility] Hypothyroidism (disorder) Acti ve Problem [facility] Irritable colon (disorder) Act [place] Problem [facility] UNSPECIFIED TRACHEOSTOMY COMPLICATION Active [facility] Medications Medication Details Route Status Patient Instructions Ordering Provider Order Date Source levothyroxine 175 mcg (0.175 mg) oral tablet 175 microgram = 1 tab, PO, Daily, # 15 tab, 0 Refill(s) Active 06/29/2019 [facility] Metoclopramide 5 MG Oral Tablet 5 mg = 1 tab, PO, Daily, # 30 tab, 0 Refill(s) No Longe r Active 06/29/2019 [facility] Clonidine Hydrochloride 0.1 MG Oral Tablet 160, 0 Refill(s) Active 06/29/2019 [facility] cefTRIAXone 1 g intravenous injection 1 gm, IV, 1G/100ML NS //INFUSE OVER 30 MIN IN Q12H, 0 Refill(s) No Longer Active 06/29/2019 [facility] sennosides, PRISON Notes: (Same a s: Senokot) No Longer Active 06/29/2019 [facility] POLYETHYLENE GLYCOL 3350 Notes : Dissolve in 8 oz of water or juice. (Same as: Miralax) No Longer Active 06/28/2019 [facility] Allopurinol Notes: (Same as: Z yloprim) No Longer Active 06/28/2019 [facility] Furosemide 40 MG Oral Tablet [Lasix] Notes: (Same as: Lasix) May cause GI upset. Give with food or milk. No Longer Active 06/28/2019 [facility] Thyroxine Notes: Take 1 hour b efore or 2 hours after meal; Enteral feeds may interefere with the absorption of this medication. (Same as: Levothroid) No Longe r Active 06/28/2019 [facility] Sodium Chloride 0.9% IV 1,000 mL 1,000 mL, Rate: 75 ml/hr, Infuse over: 13.3 hr, Route: IV, Dosing Weight 81.818 kg, Total Volume: 1,000, Start date: 06/27/19 23:57:00 CDT, Duration: 30 day, Stop date: 07/27/19 23:56:00 BANDAGE WINDING MACHINE OPERATOR, 2, m2, 0 No Longer Active 06/28/2019 [facility] Oxycodone Hydrochloride 5 MG Oral Tablet Notes: (Same as: Roxicodone) No Longer Active 06/28/2019 [facility] Naloxone Notes: Same as Narcan No Longer Active 06/28/2019 [facility] Melatonin Notes: (Same as: [place] atonin) No Longer Active 06/28/2019 [facility] Amitriptyline Notes: (Same as: Elavil) No Longer Active 06/28/2019 [facility] ondansetron (ANES) Route: IV, Drug form: INJ, ONCE, Stop date: 06/27/19 19:26:00 CDT Inactive 06/28/2019 [facility] glycopyrrolate (ANES) Route: I V, Drug form: INJ, ONCE, Stop date: 06/27/19 19:26:00 CDT Inactive 06/28/2019 [facility] neostigmine (ANES) Route: IV, Drug form: INJ, ONCE, Stop date: 06/27/19 19:26:00 CDT Inactive 06/28/2019 [facility] dexamethasone (ANES) Route: IV , Drug form: INJ, ONCE, Stop date: 06/27/19 18:53:00 CDT Inactive 06/27/2019 [facility] fentaNYL (ANES) Route: IV, David g form: INJ, ONCE, Stop date: 06/27/19 18:38:00 CDT Inactive 06/27/2019 [facility] lidocaine (ANES) Route: IV, Dr ug form: INJ, ONCE, Stop date: 06/27/19 18:33:00 CDT Inactive 06/27/2019 [facility] propofol (ANES) Route: IV, David g form: INJ, ONCE, Stop date: 06/27/19 18:33:00 CDT Inactive 06/27/2019 [facility] rocuronium (ANES) Route: IV, D rug form: INJ, ONCE, Stop date: 06/27/19 18:23:00 CDT Inactive 06/27/2019 [facility] phenylephrine (ANES) Route: IV , Drug form: INJ, ONCE, Stop date: 06/27/19 18:23:00 CDT Inactive 06/27/2019 [facility] Lactated Ringers Injection IV (ANES) 1000 mL Route: IV, Total Volume: 1,000, Start date: 06/27/19 17:32:00 CDT, Stop date: 06/27/19 18:32:00 CDT Inactive 06/27/2019 [facility] Dextrose 50% Syringe 12.5 gm, 25 mL, Route: IVP, Drug Form: INJ, Dosing Weight 81.818, kg, PRN, PRN Blood Glucose Results, Start date: 06/27/19 17:30:00 CDT, Duration: 30 day, Stop date: 07/27/19 16:29:00 BANDAGE WINDING MACHINE OPERATOR, 0 No Longer Active 06/27/2019 [facility] Glucagon 1 mg, Route: IM, Drug form: PDR/INJ, PRN, Dosing Weight 81.818, kg, PRN Blood Glucose Results, Start date: 06/27/19 17:30:00 CDT, Duration: 30 day, Stop date: 07/27/19 16:29:00 BANDAGE WINDING MACHINE OPERATOR, 0 No Longer Active 06/27/2019 [facility] Insulin regular Notes: (Same a s: Humulin R) Roll in palms of hands gently; Do not shake vigorously. WASTE: F/P - Black; E - Municipal Trash Bin Stable for 31 days at room temperature Expires in days from Date No Longer Active 06/27/2019 [facility] Dextrose 50% Syringe 12.5 gm, 25 mL, Route: IVP, Drug Form: INJ, Dosing Weight 81.818, kg, PRN, PRN Blood Glucose Results, Start date: 06/27/19 17:06:00 CDT, Duration: 30 day, Stop date: 07/27/19 16:05:00 BANDAGE WINDING MACHINE OPERATOR, 0 No Longer Active 06/27/2019 [facility] Glucagon 1 mg, Route: IM, Drug form: PDR/INJ, PRN, Dosing Weight 81.818, kg, PRN Blood Glucose Results, Start date: 06/27/19 17:06:00 CDT, Duration: 30 day, Stop date: 07/27/19 16:05:00 BANDAGE WINDING MACHINE OPERATOR, 0 No Longer Active 06/27/2019 [facility] Bisacodyl Notes: (Same As: Dul colax, Bisco-Lax) No Longer Active 06/27/2019 [facility] Ondansetron Notes: (Same as: Jacqui walter) MEDICATION WASTE Product Size: 4 mg Product Wasted: ___ mg No Longer Active 06/27/2019 [facility] Melatonin Notes: (Same as: [place] atonin) No Longer Active 06/27/2019 [facility] Acetaminophen Notes: Do not ex ceed 4 gm/day. (Same as: Tylenol) No Longer Active 06/27/2019 [facility] Saline Flush 0.9% 10 mL, Route : IVP, Drug Form: INJ, Dosing Weight 81.818, kg, PRN, PRN Line Flush, Start date: 06/27/19 15:12:00 CDT, Duration: 30 day, Stop date: 07/27/19 14:11:00 BANDAGE WINDING MACHINE OPERATOR, 0 No Longer Active 06/27/2019 [facility] potassium chloride Notes: (Prasanth e as: Potassium Chloride) Inactive 11/07/2018 [facility] Thyroxine Notes: Take 1 hour b efore or 2 hours after meal; Enteral feeds may interefere with the absorption of this medication. (Same as: Levothroid) Inactive 11/07/2018 [facility] Furosemide 40 MG Oral Tablet [Lasix] Notes: (Same as: Lasix) May cause GI upset. Give with food or milk. Inactive 11/07/2018 [facility] Allopurinol Notes: (Same as: Jacqui yloprim) Inactive 11/07/2018 [facility] Metformin hydrochloride 500 MG Oral Tablet Notes: (Same as: Glucophage) Take with meal Inactive 11/07/2018 [facility] Acetaminophen Notes: Max aceta minophen = 4000mg/day (4 gm/day). (Same as: Tylenol) Inactive 11/07/2018 [facility] Dicyclomine Notes: (Same as:Be ntyl) No Longer Active 11/07/2018 [facility] Amitriptyline Notes: (Same as: Elavil) No Longer Active 11/07/2018 [facility] tramadol hydrochloride 50 MG Oral Tablet Notes: Not to exceed 400mg/day. (Same As: Ultram) No Longer Active 11/06/2018 [facility] Docusate Notes: (Same as: Cola ce) No Longer Active 11/06/2018 [facility] Ondansetron Notes: (Same as: Jacqui walter) MEDICATION WASTE Product Size: 4 mg Product Wasted: ___ mg No Longer Active 11/06/2018 [facility] Promethazine Notes: Do not giv e IV push. (Same as: Phenergan) Inactive 11/06/2018 [facility] Ondansetron Notes: (Same as: Jacqui walter) MEDICATION WASTE Product Size: 4 mg Product Wasted: ___ mg Inactive 11/06/2018 [facility] Naloxone Notes: Same as Narcan Inactive 11/06/2018 [facility] Oxycodone Notes: (Same as: Libby icodone) Inactive 11/06/2018 [facility] Acetaminophen Notes: Max aceta minophen 4000 mg/day (4 gm/day). (Same as: Tylenol Extra Strength) Inactive 11/06/2018 [facility] Labetalol 10 mg, 2 mL, Route: IVP, Drug form: INJ, Q5Min, Dosing Weight 86.364, kg, PRN Elevated BP, Start date: 11/06/18 16:16:00 BANDAGE WINDING MACHINE OPERATOR, Duration: 5 doses or times, Stop date: 11/07/18 0:00:00 BANDAGE WINDING MACHINE OPERATOR Inactive 11/06/2018 [facility] esmolol Notes: (Same as: Brevi bloc) Inactive 11/06/2018 [facility] Flumazenil Notes: (Same as: Ro mazicon) Inactive 11/06/2018 [facility] glycopyrrolate (ANES) Route: I V, Drug form: INJ, ONCE, Stop date: 11/06/18 16:15:00 BANDAGE WINDING MACHINE OPERATOR Inactive 11/06/2018 [facility] ondansetron (ANES) Route: IV, Drug form: INJ, ONCE, Stop date: 11/06/18 16:15:00 BANDAGE WINDING MACHINE OPERATOR Inactive 11/06/2018 [facility] neostigmine (ANES) Route: IV, Drug form: INJ, ONCE, Stop date: 11/06/18 16:15:00 BANDAGE WINDING MACHINE OPERATOR Inactive 11/06/2018 [facility] dexamethasone (ANES) Route: IV , Drug form: INJ, ONCE, Stop date: 11/06/18 16:11:00 BANDAGE WINDING MACHINE OPERATOR Inactive 11/06/2018 [facility] fentaNYL (ANES) Route: IV, David g form: INJ, ONCE, Stop date: 11/06/18 16:11:00 BANDAGE WINDING MACHINE OPERATOR Inactive 11/06/2018 [facility] propofol (ANES) Route: IV, David g form: INJ, ONCE, Stop date: 11/06/18 16:11:00 BANDAGE WINDING MACHINE OPERATOR Inactive 11/06/2018 [facility] rocuronium (ANES) Route: IV, D rug form: INJ, ONCE, Stop date: 11/06/18 15:56:00 BANDAGE WINDING MACHINE OPERATOR Inactive 11/06/2018 [facility] Lactated Ringers Injection IV (ANES) 1000 mL Route: IV, Total Volume: 1,000, Start date: 11/06/18 15:16:00 BANDAGE WINDING MACHINE OPERATOR, Stop date: 11/06/18 16:16:00 BANDAGE WINDING MACHINE OPERATOR Inactive 11/06/2018 [facility] sugammadex Notes: (Same as: Reese porras) No Longer Active 11/06/2018 [facility] 8 HR Acetaminophen 650 MG Extended Relea se Tablet [Tylenol] 1,300 mg = 2 tab, PO, Q8H, 0 Refill(s) On Hold 11/02/2018 [facility] potassium chloride 20 mEq oral tablet, extended releas e 20 mEq = 1 tab, PEG, Daily, # 30 tab, 3 Refill(s) On Hold 11/02/2018 [facility] Furosemide 40 MG Oral Tablet [Lasix] 40 mg = 1 tab, PEG, Daily, # 30 tab, 0 Refill(s) On Hold 11/02/2018 [facility] levothyroxine 150 mcg (0.15 mg) oral tablet 150 microgram = 1 tab, PEG, Daily, # 30 tab, 0 Refill(s) On Hold 11/02/2018 [facility] allopurinol 100 mg oral tablet 100 mg = 1 tab, PEG, Daily, # 60 tab, 0 Refill(s) O n Hold 11/02/2018 [facility] Albuterol 0.833 MG/ML / Ipratropium Brom teodora 0.167 MG/ML Inhalant Solution 3 mL, Route: NEB, Dosing Weight 152.273, kg, ONCE, STAT, Start date: 06/15/16 13:20:00 CDT, Stop date: 06/15/16 13:20:00 CDT Inactive 06/15/2016 [facility] Calcium Chloride 0.0014 MEQ/ML / Potassi um Chloride 0.004 MEQ/ML / Sodium Chloride 0.103 MEQ/ML / Sodium Lactate 0.028 MEQ/ML Injectable Solution 1,000 mL, Rate: 25 ml/hr, Infuse over: 4 0 hr, Route: IV, Dosing Weight 152.273 kg, Total Volume: 1,000, Start date: 06/15/16 13:20:00 CDT, Duration: 30 day, Stop date: 07/15/16 13:19:00 CDT Inactive 06/15/2016 [facility] Sodium Chloride 0.154 MEQ/ML Injectable Solution 500 mL, Rate: 25 ml/hr, Infuse over: 20 hr, Route: IV, Dosing Weight 152.273 kg, Total Volume: 500, Start date: 06/15/16 13:20:00 CDT, Duration: 30 day, Stop date: 07/15/16 13:19:00 CDT Inactive 06/15/2016 [facility] dicyclomine 20 mg oral tablet 20 mg = 1 tab, PO, QID, # 28 tab, 0 Refill(s) Active 06/14/2016 [facility] omeprazole 40 mg oral delayed release capsule 40 mg = 1 cap, PO, Daily, # 30 cap, 0 Refill(s) Active 06/14/2016 [facility] losartan 100 mg oral tablet 10 0 mg = 1 tab, PO, Daily, # 30 tab, 0 Refill(s) Active 06/14/2016 [facility] sitagliptin 100 MG Oral Tablet [Januvia] 100 mg = 1 tab, PO, Daily, # 30 tab, 0 Refill(s) Active 06/14/2016 [facility] amitriptyline 25 mg oral tablet 25 mg = 1 tab, PO, Bedtime, # 30 tab, 1 Refill(s) Active 06/14/2016 [facility] Metformin hydrochloride 500 MG Oral Tablet 1,000 mg = 2 tab, PO, BID-Meals, # 30 tab, 0 Refill(s) Active 06/14/2016 [facility] Allergies, Adverse Reactions, Alerts Substance Category Reaction Severity Reaction type Status Date Reported Comments Source penicillins Assertion Drug allergy Active [facility] heparin Assertion Drug allergy Active [facility] Other Environmental Allergy<sup>1</sup> Assertion Drug aller gy Active [facility] Immunizations No Data Provided for This Section Results Order Name Results Value Reference Range Date Interpretation Comments Source ELECTROLYTES AGAP 10.7 10.0 - 20.0 07/01/2019 [facility] ELECTROLYTES Glucose Lvl 102 70 - 99 07/01/2019 [facility] ELECTROLYTES BUN 26 7 - 22 07/01/2019 [facility] ELECTROLYTES Creatinine Lvl 0.8 0 0.50 - 1.40 07/01/2019 [facility] ELECTROLYTES Sodium Lvl 141 135 - 145 07/01/2019 [facility] ELECTROLYTES Potassium Lvl 3.7 3.5 - 5.1 07/01/2019 [facility] ELECTROLYTES Chloride Lvl 105 95 - 109 07/01/2019 [facility] ELECTROLYTES CO2 29 24 - 32 07/01/2019 [facility] ELECTROLYTES Calcium Lvl 9.5 8.5 - 10.5 07/01/2019 [facility] ELECTROLYTES eGFR 74 07/01/2019 Result Comment: The eGFR is calculated using the [...] from the National Kidney Disease Education Program (NKDEP) which additionally recommends that when the eGFR is used in patients with extremes of body mass index for purposes of drug dosing, the eGFR should be multiplied by the estimated BMI. [facility] HEMATOLOGY Segs 65.2 45.0 - 75.0 07/01/2019 [facility] HEMATOLOGY Lymphocytes 23.3 20.0 - 40.0 07/01/2019 [facility] HEMATOLOGY Monocytes 7.5 2.0 - 12.0 07/01/2019 [facility] HEMATOLOGY Eosinophils 3.4 0.0 - 4.0 07/01/2019 [facility] HEMATOLOGY Basophils 0.6 0.0 - 1.0 07/01/2019 [facility] HEMATOLOGY Neutrophils # 4.7 1.5 - 8.1 07/01/2019 [facility] HEMATOLOGY Lymphocytes # 1.7 1.0 - 5.5 07/01/2019 [facility] HEMATOLOGY Monocytes # 0.5 0.0 - 0.8 07/01/2019 [facility] HEMATOLOGY Eosinophils # 0.2 0.0 - 0.5 07/01/2019 [facility] HEMATOLOGY WBC 7.3 3.7 - 10.4 07/01/2019 [facility] HEMATOLOGY RBC 3.85 4.20 - 5.40 07/01/2019 [facility] HEMATOLOGY Hgb 11.8 12.0 - 16.0 07/01/2019 [facility] HEMATOLOGY Hct 35.6 36.0 - 48.0 07/01/2019 [facility] HEMATOLOGY MCV 92.6 80.0 - 98.0 07/01/2019 [facility] HEMATOLOGY MCH 30.7 27.0 - 31.0 07/01/2019 [facility] HEMATOLOGY MCHC 33.1 32.0 - 36.0 07/01/2019 [facility] HEMATOLOGY RDW 12.2 11.5 - 14.5 07/01/2019 [facility] HEMATOLOGY Platelet 21 133 - 450 07/01/2019 Result Comment: Critical Result(s) farley d to Kristie Lindsay at 07/01/2019 02:23 by Le. Julien back OK. [facility] HEMATOLOGY MPV 12.4 7.4 - 10.4 07/01/2019 [facility] HEMATOLOGY Segs 55.9 45.0 - 75.0 06/30/2019 [facility] HEMATOLOGY Lymphocytes 32.5 20.0 - 40.0 06/30/2019 [facility] HEMATOLOGY Monocytes 7.0 2.0 - 12.0 06/30/2019 [facility] HEMATOLOGY Eosinophils 4.2 0.0 - 4.0 06/30/2019 [facility] HEMATOLOGY Basophils 0.4 0.0 - 1.0 06/30/2019 [facility] HEMATOLOGY Neutrophils # 2.7 1.5 - 8.1 06/30/2019 [facility] HEMATOLOGY Lymphocytes # 1.6 1.0 - 5.5 06/30/2019 [facility] HEMATOLOGY Monocytes # 0.3 0.0 - 0.8 06/30/2019 [facility] HEMATOLOGY Eosinophils # 0.2 0.0 - 0.5 06/30/2019 [facility] HEMATOLOGY WBC 4.8 3.7 - 10.4 06/30/2019 [facility] HEMATOLOGY RBC 3.49 4.20 - 5.40 06/30/2019 [facility] HEMATOLOGY Hgb 10.8 12.0 - 16.0 06/30/2019 [facility] HEMATOLOGY Hct 32.5 36.0 - 48.0 06/30/2019 [facility] HEMATOLOGY MCV 93.0 80.0 - 98.0 06/30/2019 [facility] HEMATOLOGY MCH 30.9 27.0 - 31.0 06/30/2019 [facility] HEMATOLOGY MCHC 33.2 32.0 - 36.0 06/30/2019 [facility] HEMATOLOGY RDW 12.2 11.5 - 14.5 06/30/2019 [facility] HEMATOLOGY Platelet 19 133 - 450 06/30/2019 Result Comment: Critical Result(s) farley d to Zhen Walter at 06/30/2019 06:06 byJw Read back [place]. [facility] HEMATOLOGY MPV 11.8 7.4 - 10.4 06/30/2019 [facility] ANEMIA STUDY Ferritin Lvl 595 5 - 204 06/28/2019 [facility] ANEMIA STUDY Folate Lvl 46.0 >=3.0 ng/mL 06/28/2019 [facility] ANEMIA STUDY Vitamin B12 Lvl 455 254 - 1320 06/28/2019 [facility] CHEM PANEL LDH 203 98 - 192 06/28/2019 [facility] CHEM PANEL Glucose Lvl 78 70 - 99 06/28/2019 [facility] CHEM PANEL BUN 14 7 - 22 06/28/2019 [facility] CHEM PANEL Creatinine Lvl 0.78 0.50 - 1.40 06/28/2019 [facility] CHEM PANEL Sodium Lvl 141 135 - 145 06/28/2019 [facility] CHEM PANEL Potassium Lvl 3.5 3.5 - 5.1 06/28/2019 [facility] CHEM PANEL Chloride Lvl 103 95 - 109 06/28/2019 [facility] CHEM PANEL CO2 27 24 - 32 06/28/2019 [facility] CHEM PANEL Calcium Lvl 9.0 8.5 - 10.5 06/28/2019 [facility] CHEM PANEL Total Protein 6.7 6.4 - 8.4 06/28/2019 [facility] CHEM PANEL Albumin Lvl 3.7 3.5 - 5.0 06/28/2019 [facility] CHEM PANEL ALT 15 0 - 65 06/28/2019 [facility] CHEM PANEL AST 13 0 - 37 06/28/2019 [facility] CHEM PANEL Alk Phos 112 39 - 136 06/28/2019 [facility] CHEM PANEL Bili Total 0.4 0.2 - 1.3 06/28/2019 [facility] CHEM PANEL eGFR 77 06/28/2019 Result Comment: The eGFR is calculated using the [...] from the National Kidney Disease Education Program (NKDEP) which additionally recommends that when the eGFR is used in patients with extremes of body mass index for purposes of drug dosing, the eGFR should be multiplied by the estimated BMI. [facility] CHEM PANEL AGAP 14.5 10.0 - 20.0 06/28/2019 [facility] CHEM PANEL B/C Ratio 18 6 - 25 06/28/2019 [facility] CHEM PANEL Globulin 3.0 2.7 - 4.2 06/28/2019 [facility] CHEM PANEL A/G Ratio 1.2 0.7 - 1.6 06/28/2019 [facility] HEMATOLOGY WBC 9.3 3.7 - 10.4 06/28/2019 [facility] HEMATOLOGY RBC 3.77 4.20 - 5.40 06/28/2019 [facility] HEMATOLOGY Hgb 11.5 12.0 - 16.0 06/28/2019 [facility] HEMATOLOGY Hct 35.1 36.0 - 48.0 06/28/2019 [facility] HEMATOLOGY MCV 92.9 80.0 - 98.0 06/28/2019 [facility] HEMATOLOGY MCH 30.6 27.0 - 31.0 06/28/2019 [facility] HEMATOLOGY MCHC 32.9 32.0 - 36.0 06/28/2019 [facility] HEMATOLOGY RDW 12.4 11.5 - 14.5 06/28/2019 [facility] HEMATOLOGY Platelet 31 133 - 450 06/28/2019 [facility] HEMATOLOGY MPV 15.5 7.4 - 10.4 06/28/2019 [facility] HEMATOLOGY Segs 70.1 45.0 - 75.0 06/28/2019 [facility] HEMATOLOGY Lymphocytes 22.0 20.0 - 40.0 06/28/2019 [facility] HEMATOLOGY Monocytes 5.6 2.0 - 12.0 06/28/2019 [facility] HEMATOLOGY Eosinophils 2.0 0.0 - 4.0 06/28/2019 [facility] HEMATOLOGY Basophils 0.3 0.0 - 1.0 06/28/2019 [facility] HEMATOLOGY Neutrophils # 6.5 1.5 - 8.1 06/28/2019 [facility] HEMATOLOGY Lymphocytes # 2.1 1.0 - 5.5 06/28/2019 [facility] HEMATOLOGY Monocytes # 0.5 0.0 - 0.8 06/28/2019 [facility] HEMATOLOGY Eosinophils # 0.2 0.0 - 0.5 06/28/2019 [facility] IMMUNOLOGY Haptoglobin 137 16 - 200 06/28/2019 [facility] IMMUNOLOGY HIV Ag/Ab 4th Gen Negat brooklynn *NA* (06/28/19 6:50 PM) Negative 06/28/2019 [facility] IMMUNOLOGY Hep C Ab Negat brooklynn *NA* (06/28/19 6:50 PM) Negative 06/28/2019 [facility] IMMUNOLOGY Hep B Core IgM Negat brooklynn *NA* (06/28/19 6:50 PM) Negative 06/28/2019 [facility] IMMUNOLOGY Hep A IgM Negat brooklynn *NA* (06/28/19 6:50 PM) Negative 06/28/2019 [facility] IMMUNOLOGY Hep Bs Ag Negat brooklynn *NA* (06/28/19 6:50 PM) Negative 06/28/2019 [facility] METAL Copper Lvl 111 72 - 166 06/28/2019 Result Comment: This test was developed and its performance characteristics
determined by [facility]. It has not been cleared or
approved by the Food and Drug Administration.
Detection Limit = 5
Performed At: [facility]
[address], [place] [id number]
Jamie Santoyo MD Ph:[phone] [facility] HEMATOLOGY PB Smear Path Perip heral blood smear examination: Normocytic normochromic anemia. Schistocytes are not increased. Adequate WBCs with minimally reactive PMNs. Marked thrombocytopenia with presence of rare large forms. CPT: 21030 06/28/2019 [facility] HEMATOLOGY Platelet Count Blue Top 2 0 133 - 450 06/28/2019 Result Comment: Critical Result(s) farley d to Zhen Swann at 06/27/2019 21:46 by JA. Read back OK. [facility] BLOOD BANK RESULTS Path AB Blood Bank Physician Service The patient is a 69 year old female, presenting for complication of tracheostomy. No recent transfusion history. 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 This antibody is directed against [place] antigen of the [employer] blood group system. It is typically IgG [...] the donor population lacks the K-antigen. The patients electronic medical record has been reviewed for relevant information. I have reviewed the test results and concur with the resident, Dr. Becerra's interpretation. CPT: 77462- GC 06/27/2019 [facility] BLOOD BANK RESULTS ABO/Rh A NEG 06/27/2019 [facility] BLOOD BANK RESULTS Antibody Scrn Positive 4 (06/27/19 3:54 PM) 06/27/2019 Result Comment: 06/27/2019 1 7:27 [id number]
"Significant Findings of POS ABSC_ called to _Hang FUCHS at _06/27/2019 17:25_ by JNY__. Read Back OK" [facility] BLOOD BANK RESULTS AB Int Anti-K 06/27/2019 [facility] CHEM PANEL Glucose Lvl 101 70 - 99 06/27/2019 [facility] CHEM PANEL BUN 15 7 - 22 06/27/2019 [facility] CHEM PANEL Creatinine Lvl 0.79 0.50 - 1.40 06/27/2019 [facility] CHEM PANEL Sodium Lvl 141 135 - 145 06/27/2019 [facility] CHEM PANEL Potassium Lvl 4.0 3.5 - 5.1 06/27/2019 [facility] CHEM PANEL Chloride Lvl 104 95 - 109 06/27/2019 [facility] CHEM PANEL CO2 26 24 - 32 06/27/2019 [facility] CHEM PANEL Calcium Lvl 10.5 8.5 - 10.5 06/27/2019 [facility] CHEM PANEL eGFR 76 06/27/2019 Result Comment: The eGFR is calculated using the [...] from the National Kidney Disease Education Program (NKDEP) which additionally recommends that when the eGFR is used in patients with extremes of body mass index for purposes of drug dosing, the eGFR should be multiplied by the estimated BMI. [facility] CHEM PANEL AGAP 15.0 10.0 - 20.0 06/27/2019 [facility] HEMATOLOGY INR 0.99 0.85 - 1.17 06/27/2019 [facility] HEMATOLOGY PT 12.9 12.0 - 14.7 06/27/2019 [facility] HEMATOLOGY PTT 28.6 22.9 - 35.8 06/27/2019 [facility] HEMATOLOGY RBC Morph Vale l (06/27/19 3:54 PM) Normal 06/27/2019 [facility] HEMATOLOGY Plt Morph Vale l (06/27/19 3:54 PM) Normal 06/27/2019 [facility] ELECTROLYTES AGAP 12.9 10.0 - 20.0 11/06/2018 [facility] ELECTROLYTES CO2 18 24 - 32 11/06/2018 [facility] ELECTROLYTES Calcium Lvl 9.9 8.5 - 10.5 11/06/2018 [facility] ELECTROLYTES Potassium Lvl 4.9 3.5 - 5.1 11/06/2018 [facility] ELECTROLYTES Chloride Lvl 109 95 - 109 11/06/2018 [facility] ELECTROLYTES Creatinine Lvl 0.8 0 0.50 - 1.40 11/06/2018 [facility] ELECTROLYTES Sodium Lvl 135 135 - 145 11/06/2018 [facility] ELECTROLYTES Glucose Lvl 94 70 - 99 11/06/2018 [facility] ELECTROLYTES BUN 36 7 - 22 11/06/2018 [facility] ELECTROLYTES eGFR 75 11/06/2018 Result Comment: The eGFR is calculated using the [...] from the National Kidney Disease Education Program (NKDEP) which additionally recommends that when the eGFR is used in patients with extremes of body mass index for purposes of drug dosing, the eGFR should be multiplied by the estimated BMI. [facility] ELECTROLYTES Chloride Lvl 103 95 - 109 06/14/2016 [facility] ELECTROLYTES Potassium Lvl 5.1 3.5 - 5.1 06/14/2016 [facility] ELECTROLYTES AGAP 11.1 10.0 - 20.0 06/14/2016 [facility] ELECTROLYTES Calcium Lvl 9.2 8.5 - 10.5 06/14/2016 [facility] ELECTROLYTES CO2 26 24 - 32 06/14/2016 [facility] ELECTROLYTES eGFR 76 06/14/2016 Result Comment: The eGFR is calculated using the [...] from the National Kidney Disease Education Program (NKDEP) which additionally recommends that when the eGFR is used in patients with extremes of body mass index for purposes of drug dosing, the eGFR should be multiplied by the estimated BMI. [facility] ELECTROLYTES Creatinine Lvl 0.8 0 0.50 - 1.40 06/14/2016 [facility] ELECTROLYTES BUN 11 7 - 22 06/14/2016 [facility] ELECTROLYTES Sodium Lvl 135 135 - 145 06/14/2016 [facility] ELECTROLYTES Glucose Lvl 112 70 - 99 06/14/2016 [facility] Pathology Reports No Data Provided for This Section Diagnostic Reports Report Value Date Source Chest 1view DX EXAM: XR CHEST 1 VIEW DATE: 06/29/2019 3:26 PM CDT INDICATION: Respiratory distress - trach; ShOB, aspiration COMPARISON: None TECHNIQUE: AP chest. IMPRESSION: Tracheostomy appliance projects over the lower neck. The cardiomediastinal silhouette is normal in size. The descending thoracic aorta is tortuous. No pleural effusions or pneumothorax. Mild bibasilar subsegmental atelectasis. Degenerative changes in the shoulders and thoracic spine. CONCLUSION: 1. Tracheostomy appliance projects over the lower neck. 2. Mild bibasilar subsegmental atelecta sis. 3. Degenerative changes in the shoulder s and thoracic spine. 06/29/2019 [facility] Abdomen complete US EXAM: US A BDOMEN COMPLETE DATE: 06/29/2019 8:26 AM CDT INDICATION: - low platelet count; eval for splenomegaly or liver ADDITIONAL INFORMATION: None. COMPARISON: None. TECHNIQUE: Multiplanar grayscale and color Doppler ultrasound of the abdomen. FINDINGS: Liver: Craniocaudal length: 17.9 cm. Echogenicity: Coarsened Surface nodularity: Normal. Mass (size and location): None. Portal vein: Normal. Bile ducts: Common bile duct diameter: 0.3 cm. Intrahepatic ducts: Normal. Gallbladder: Gallstones: Present Gallbladder sludge: None. Gallbladder wall: 0.2 cm. Pericholecystic fluid: None. Sonographic Rodriguez sign: Absent. Pancreas: Head and uncinate process: Obscured by bowel gas Body and tail: Not seen. Spleen: Craniocaudal length: 12.1 cm. Mass or focal lesion (size and location): None. Right kidney: Hydronephrosis: None. Size: 9.8 cm. Echogenicity: Normal. Mass/Stone/Cyst (size and location): None. Left kidney: Hydronephrosis: None. Size: 8.8 cm. Echogenicity: Normal. Mass/Stone/Cyst (size and location): None. Abdominal aorta and IVC: Visible portions are normal. Ascites: None. Other: None. IMPRESSION: Limited study due to patient limited mobility. 1. Hepatosplenomegaly with coarsened ec hotexture, which may represent chronic hepatocellular disease. 2. Borderline splenomegaly. 3. Cholelithiasis without evidence of a cute cholecystitis. 4. Increased renal echogenicity likely representing component of chronic renal parenchymal disease. 06/29/2019 [facility] Esophagus BA swallow function video DX EXAM: FLUOROSCOPY MODIFIED BARIUM SWALLOW DATE: 06/28/2019 14:26 CDT INDICATION: - s/p trach; eval swallow. COMPARISON: Modified barium swallow on 11/07/2018 TECHNIQUE: Oral barium contrast of differing consistencies was given to the patient to assess swallowing mechanism. The study was performed in conjunction with speech pathology. FLUOROSCOPY TIME: 58 seconds FLUOROSCOPY DOSE: 4.42 mGy DISCUSSION: The patient was given barium contrast of different consistencies. Thin barium: Deep penetration. [place] barium: Deep penetration Pudding barium: Normal. Solid with barium: Normal. IMPRESSION: 1. Deep penetration with thin and necta r consistency barium. 2. Please also see detailed chart note by speech pathology. 06/28/2019 [facility] Esophagus BA swallow function video DX EXAM: FLUOROSCOPY MODIFIED BARIUM SWALLOW DATE: 11/07/2018 7:00 BANDAGE WINDING MACHINE OPERATOR INDICATION: Assess swallow function. COMPARISON: None. TECHNIQUE: Oral barium contrast of differing consistencies was given to the patient to assess swallowing mechanism. The study was performed in conjunction with speech pathology. FLUOROSCOPY TIME: 38 seconds Skin dose: 2.1 mGy DISCUSSION: The patient was given barium contrast of different consistencies. Thin barium: There was aspiration with nonproductive cough with thin consistency barium by spoon. [place] barium: There was aspiration with nonproductive cough with nectar consistency barium by spoon. Puree barium: No evidence of penetration or aspiration with puree consistency. IMPRESSION: 1. Aspiration with thin and nectar cons istencies. 2. Please also see detailed chart note by speech pathology. 11/07/2018 [facility] Chest w contrast CT EXAM: CT CHEST WITH CONTRAST DATE: 08/11/2018 at 4:27 PM BANDAGE WINDING MACHINE OPERATOR INDICATION: - J39.8 Other specified diseases of upper respiratory tract TECHNIQUE: Volumetric CT acquisition of the chest, following intravenous contrast. Axial, sagittal and coronal reconstructions. Maximum intensity projection images were performed. IV Contrast: 150 mL. DLP: 683 mGy-cm COMPARISON: No images to compare FINDINGS: Lower Neck: Please refer to CT neck performed on the same day. Heart, mediastinum and great Vessels: Heart size is normal and there is trace amount of inferior ventral pericardial fluid on axial image 144 measuring 9 mm. Measurements of the pulmonary trunk and thoracic aorta within normal limits. Aortic root, thoracic aortic and three-vessel scattered coronary artery calcifications are present. A few multicompartment mediastinal and hilar lymph nodes are present, measuring up to 11 mm. Lungs and Pleura: Tracheostomy tube is seen terminating approximately 2 cm above the marlyn. There is diffuse central bronchial wall thickening. Calcified granuloma left lung apex. Areas of linear subsegmental atelectasis/scarring and groundglass attenuation in the right upper lobe. Less prominent but similar findings are seen in the lingula and bilateral lower lobes. No pleural effusion or pneumothorax. Bones and Soft Tissues: Diffuse age-related changes of the thoracic spine with severe degenerative changes of bilateral glenohumeral joints. Upper abdomen: Significant streak artifact from upper extremities limiting the evaluation. Percutaneous enterogastric tube is present. The hepatic contours are slightly lobulated. The gallbladder is mildly distended. Small hiatal hernia with diffuse thickening of the esophagus and patulous dilatation of the proximal segment with intraluminal debris.Atherosclerotic calcifications of the aorta and branch vessels. IMPRESSION: 1. Areas of linear subsegmental atelecta sis/scarring and groundglass attenuation in the right upper lobe and less degree lingula and bilateral lower lobes, which could represent sequela of prior infectious or inflammatory (aspiration) pneumonitis. 2. Few borderline mediastinal and right hilar lymph nodes, likely reactive. 3. Aortic root, thoracic aortic and thre e-vessel scattered coronary artery calcifications. 4. Small hiatal hernia with diffuse thic kening of the esophagus. In addition the proximal esophagus appears patulous with intraluminal debris. This could increase risk for aspiration. 5. Abdominal ultrasound is recommended t o better evaluate upper abdominal findings as described above. 08/11/2018 [facility] Neck soft tissue w contrast CT EXAM: CT NECK WITH CONTRAST DATE: 08/11/2018 at 4:31 PM INDICATION: 68-year-old female patient with diagnosis of tracheal stenosis. No additional clinical information is available at the time of dictation. COMPARISON: None available TECHNIQUE: Volumetric CT of the neck is acquired following intravenous administration of contrast. Axial, coronal and sagittal images are provided. IV contrast: 150 mL of Omnipaque 350. DLP: 796 mGy-cm. FINDINGS: A tracheostomy tube is identified in on adequate position. A 12 mm hypoenhancing nodule is seen within the left thyroid lobe. Dilation of the visualized portions of the cervical and upper thoracic esophagus, with pooling secretions, which can note be fully evaluated in the present examination. The nasopharynx, oropharynx and oral cavity are normal. The larynx, hypopharynx and thyroid gland are otherwise normal. Note is made that the infraglottic compartment of the larynx cannot be fully evaluated in the present examination secondary to the presence of the tracheostomy tube The salivary glands including the parotid and submandibular glands are normal. Imaged portions of the paranasal sinuses and mastoid air cells are clear. Imaged portions of the brain and orbits are unremarkable. Atherosclerotic changes of the carotid bulbs. No pathologically enlarged lymph nodes are identified. Degenerative disc changes of the cervical spine. The lung apices are clear. IMPRESSION: 1. No definite evidence of tracheal jonathan noses is seen; however, the presence of the tracheostomy tube limits the thorough evaluation of the tracheal lumen. 2. No neck mass or enhancing lesion is i dentified. No pathologic enlarged neck lymphadenopathy. Tracheostomy tube is in place. 3. Dilatation of the cervical and upper thoracic esophagus may be secondary to hiatal hernia. 08/11/2018 [facility] Consultation Notes No Data Provided for This Section Discharge Summaries No Data Provided for This Section History and Physicals No Data Provided for This Section Vital Signs Vital Sign Value Date Comments Source Temperature Oral (F) 97.6 F 07/01/2019 [facility] Heart Rate 68 07/01/2019 [facility] Systolic (mm Hg) 121 07/01/2019 [facility] Diastolic (mm Hg) 78 07/01/2019 [facility] Temperature Oral (F) 97.6 F 07/01/2019 [facility] Heart Rate 106 07/01/2019 [facility] Systolic (mm Hg) 129 07/01/2019 [facility] Diastolic (mm Hg) 76 07/01/2019 [facility] Temperature Oral (F) 100 F 07/01/2019 [facility] Heart Rate 92 07/01/2019 [facility] Respitory Rate 18 07/01/2019 [facility] Systolic (mm Hg) 106 07/01/2019 [facility] Diastolic (mm Hg) 62 07/01/2019 [facility] Respitory Rate 18 06/30/2019 [facility] Respitory Rate 20 06/30/2019 [facility] Height 172.72 cm 06/29/2019 [facility] Height 172.72 cm 06/29/2019 [facility] Height 172.72 cm 06/28/2019 [facility] Weight 81.818 06/28/2019 [facility] BMI Calculated 27.43 06/28/2019 [facility] Weight 81.818 06/27/2019 [facility] Temperature Oral (F) 97.2 F 11/07/2018 [facility] Heart Rate 61 11/07/2018 [facility] Systolic (mm Hg) 98 11/07/2018 [facility] Diastolic (mm Hg) 61 11/07/2018 [facility] Respitory Rate 18 11/07/2018 [facility] Heart Rate 70 11/07/2018 [facility] Temperature Oral (F) 97.5 F 11/07/2018 [facility] Systolic (mm Hg) 104 11/07/2018 [facility] Diastolic (mm Hg) 64 11/07/2018 [facility] Respitory Rate 20 11/07/2018 [facility] Systolic (mm Hg) 134 11/07/2018 [facility] Diastolic (mm Hg) 72 11/07/2018 [facility] Respitory Rate 21 11/07/2018 [facility] Temperature Oral (F) 98.3 F 11/07/2018 [facility] BMI Calculated 28.12 11/06/2018 [facility] Weight 86.364 11/06/2018 [facility] Heart Rate 122 11/06/2018 [facility] Height 175.26 cm 11/02/2018 [facility] Respitory Rate 23 06/15/2016 [facility] Systolic (mm Hg) 134 06/15/2016 [facility] Diastolic (mm Hg) 88 06/15/2016 [facility] Respitory Rate 16 06/15/2016 [facility] Systolic (mm Hg) 113 06/15/2016 [facility] Diastolic (mm Hg) 71 06/15/2016 [facility] Respitory Rate 22 06/15/2016 [facility] Systolic (mm Hg) 113 06/15/2016 [facility] Diastolic (mm Hg) 71 06/15/2016 [facility] Temperature Oral (F) 98.9 F 06/14/2016 [facility] Heart Rate 80 06/14/2016 [facility] Height 172.72 cm 06/14/2016 [facility] BMI Calculated 51.04 06/14/2016 [facility] Weight 152.273 06/14/2016 [facility] Encounters Location Location Details Encounter Type Encounter Number Reason For Visit Attending Provider ADM Date DC Date Status Source [facility] Bedded Outpatient [id number] Joseph Hoffman 06/15/2016 06/15/2016 [facility] Outpatient [facility] Dia Services [id number] 00 Brayden Downingseth 08/11/2018 08/12/2018 [facility] Observation [id number] Sally Neff 11/07/2018 11/07/2018 [facility] Inpatient [id number] Paulie Silva 06/27/2019 07/01/2019 [facility] Procedures Procedure Code Date Perfomer Comments Source Hip joint operations [id number] [facility]<sup>1</sup> 39 [id number] Five surgeries total [id number] PEG - Percutaneous endoscopic gastrostomy [id number] [facility] Tracheostomy [id number] [facility] Assessment and Plan Assessment and Plan Date Source Extracted from:Title: Progress Note Author: Paulie Silva MD Date: 06/30/19 Pt is a 69 y/o F with PMH of fibromyalgia, IBS, hypothyroidism, GERD, DM Type II on orals, 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 She was seen by COMMAND AND CONTROL SYSTEMS INTEGRATOR and dysphagia diet adjusted. She was also [...] Hold metformin; SSI 5.Fibromyalgia(M79.7) Continue amitriptyline 6.Dysphagia(R13.10) COMMAND AND CONTROL SYSTEMS INTEGRATOR s/p MBS for ground with nectar. Patient [...] Pending thrombocytopenia work up Heme consult Extracted from:Title: Hematology Consult Note Author: Smooht Shepherd MD Date: 06/29/19 #Thrombocytopenia of undetermined etiology - No clinical evidence of bleeding and n o history of bleeding. Absent fever. - Clinically no splenomegaly. US showing borderlinehepatosplenomegaly. -Negativehepatitis panel and HIV. Negati vealcohol abuse history. - Seems that thrombocytopenia has been p resent for long time and patient is following with outpatient wet process assistant head miller. - Review of peripheral blood smear revea led normocytic normochromic anemia; no schistocytes; adequate WBCs with minimally reactive PMNs and marked thrombocytopenia with presence of rare large forms. No evidence of platelet clumping, MDD or blasts. - Noconcern for DIC or TTP. Normal kidne y function. - No indication for platelet transfusion at the moment. - Advised patient to continue to follow up with her wet process assistant head miller. Patient was staffed withhematology attending physician, Dr.Juneja POSADAS. Yasmin Suero MD PGY2 - Internal Medicine [facility] | [facility] e-mail: [email or web address] [email or web address]: [phone] TEACHING PHYSICIAN ADDENDUM. I saw and personally examined the patient with the Resident, on 06/29/2019 and I have reviewed the note above and agree with the history, exam findings and the plan of care. Extracted from:Title: Hospitalist History and Physical Author: Jose M Jose MD Date: 06/27/19 Pt is a 69 y/o F with [...] LOS: 2 Midnights, Paulie Silva MD, Admit MD Review/Approve Yes, Isolation: No Isolation/Standard Precautions, Tracheal stoma stenosis | Complication of tracheostomy 2.Complication of tracheostomy(J95.00) ENT consulted To the OR urgently for intervention/revision Continue trach collar; maintain sats greater than 90% Ordered: Admit/Condition, 06/27/19 17:06:00 CDT, Status: Inpatient, IMU, [facility], Expected LOS: 2 Midnights, Paulie Silva MD, Admit MD Review/Approve Yes, Isolation: No Isolation/Standard Precautions, Tracheal [...] Duration: 30 day, Stop date: 07/26/19 21:00:00 BANDAGE WINDING MACHINE OPERATOR, 0 6.Dysphagia(R13.10) When patient is cleared for [...] Duration: 30 day, Stop date: 07/27/19 9:00:00 BANDAGE WINDING MACHINE OPERATOR, 0 11.Irritable bowel syndrome (IBS)(K58.9) Continue amitriptyline and a bowel regimen while on narcotics for pain. Ordered: amitriptyline, 25 mg, 1 tab, Route: PEG, Drug form: TAB, Bedtime, Dosing Weight 81.818, kg, Start date: 06/27/19 21:00:00 CDT, Duration: 30 day, Stop date: 07/26/19 21:00:00 BANDAGE WINDING MACHINE OPERATOR, 0 SCD/teds Home with home health trach supplies pending ENT clearance. Likely 2 midnights. Full admission. Addendum by Jose M Jose MD on 06/28/2019 00:33 CDT Contacted [facility] and unable to provide updated med list. They believe pt switched over to mail order Rx as her prescriptions are all out-of-date but they do confirm a majority of current list. Lasix is uncertain. 07/01/2019 [facility] Extracted from:Title: ORL/HNS ENVIRONMENTAL SERVICES ASSISTANT note Author: Tamara Caro ENVIRONMENTAL SERVICES ASSISTANT Date: 11/07/18 ENVIRONMENTAL SERVICES ASSISTANT was called to BS by RN 2/ patient complain of "throat closing" despite having trach in place. Patient had been suctioned by RT, minimal secretions. SPO2 99%, HR 70, BBS are noted to be clear. Scope revealed no obstruction, open airway. Patient has recovered to her own baseline. Will continue with plans for MBS today and discharge planning as appropriate.RN and CN updated. 11/07/2018 [facility] Plan of Care No Data Provided for This Section Social History Social History Date Source Social History TypeResponse Alcohol Past Smoking Status Never smoker; Exposure to Tobacco Smoke None; Cigarette Smoking Last 365 Days No; Reg Smoking Cessation Counseling No entered on: 06/27/19 06/28/2019 [facility] Social History TypeResponse Alcohol Past Smoking Status Never smoker; Exposure to Tobacco Smoke None; Cigarette Smoking Last 365 Days No; Reg Smoking Cessation Counseling No entered on: 11/06/18 06/14/2016 [facility] Social History TypeResponse Alcohol Past Smoking Status Never smoker; Exposure to Tobacco Smoke None; Cigarette Smoking Last 365 Days No; Reg Smoking Cessation Counseling No 06/14/2016 [facility] Family History No Data Provided for This Section Advance Directives No Data Provided for This Section Functional Status No Data Provided for This Section
--- OUTSIDE RECORDS SUMMARY | 2020-02-10 01:54 | XMS REPORT | Summary of Care ---
Author Author [facility] Outpatient Imaging [facility] Outpatient Imaging [facility] Address Unknown Phone Unavailable Encounter [facility] [place](FIN) [id number] Date(s): 08/11/18 - 08/11/18 [facility] Outpatient Imaging [address] [place] [phone] Encounter Diagnosis Other specified diseases of upper respiratory tract (Final) - 08/17/18 Atherosclerotic heart disease of [place] coronary artery without angina pectoris (Final) - Atherosclerosis of aorta (Final) - Diaphragmatic hernia without obstruction or gangrene (Final) - Discharge Disposition: Home or Self Care Attending Physician: Brayden Hurd MD Referring Physician: Brayden Hurd MD Vital Signs No data available for this section Problem List Condition Effective Dates Status Health Status Informan t Arthritis(Confirmed) Active Benign Active hypertension(Confirm ed) Diabetes(Confirmed) Active Fibromyalgia(Confirm Active ed) Acid Active reflux(Confirmed) Generalized Active obesity(Confirmed) Heart Active murmur(Confirmed) Hypothyroid(Confirme Active d) Irritable bowel Active syndrome (IBS)(Confirmed) Allergies, Adverse Reactions, Alerts Substance Reaction Severity Status penicillins Active heparin Active Other Environmental Active Allergy1 1Titanium Medications No data available for this section Results No data available for this section Immunizations No data available for this section Procedures Procedure Date Related Diagnosis Body Site Status Hip joint operations Completed Hip replacement1 Completed Hysterectomy Completed PEG - Percutaneous endoscopic gastrostomy Complet ed Tracheostomy Completed [address] Five surgeries total Social History Social History Type Response Alcohol Past Smoking Status Never smoker; Exposure to T obacco Smoke None; Cigarette Smoking Last 365 Days No; Reg Smoking Cessation Counseli ng No entered on: 11/06/18 Assessment and Plan No data available for this section
--- OUTSIDE RECORDS SUMMARY | 2020-02-10 01:59 | XMS REPORT ---
Author Author [facility] t Organization [facility] t Address [address] [place] [address] Phone Unavailable Support Name Relationship Address Phone CHYNA HOOPER PRS [address] [place] [address] MARCELINA MELGAR PRS [address] [place], [place] [id number] DENISSE POSADAS, ILAN Caregiver [address] [facility] [address] [place] [address] ANGELA POSADAS, V JENN Caregiver [address] [place] [address] Unavailable NO, FAMILY Caregiver Unknown Unavailable NO, PCP Caregiver Unknown Unavailable CHYNA HOOPER Next Of Kin [address] [place] [address] Faith SANTACRUZ DO Caregiver [address] [place] [address] Unavailable QUIN POSADAS, Malcolm OSUNA Caregiver [address] [place] [address] Unavailable NATHANIEL CUMMINGS Next Of Kin [address] [place] [address] ESAU POSADAS, Jeison GARIBAY Caregiver [address] [facility] [address] [place] [address] Unavailable NATHANIEL CUMMINGS/JUSTIN Next Of Kin [address] [place] [address] DEV POSADAS T SHABBIR Caregiver [address] [place] [address] Unavailable Kalyn MARTINEZ MD Caregiver [address] [place] [address] Unavailable Faith MENJIVAR MD Caregiver [address] [place] [address] Unavailable MIGUEL A IGLESIAS Caregiver [address] [facility] [address] [place] [address] DAVIS POSADAS, Malcolm EVANS Caregiver [address] [place] [address] Unavailable ELOISA VENEGAS Damian OSWALD Caregiver [address] [place] [address] CAITLYN ROMERO DO Caregiver [address] [place] [address] Faith MENJIVAR MD Caregiver [address] [place] [address] JUSTIN CUMMINGS PRS [address] [place] [address] JUSTIN CUMMINGS PRS [address] [place] [address] Care Team Providers Care Orthopedic Radiologic Technologist Name Role Phone ELOISA VENEGAS Damian OSWALD PCP CAITLYN ROMERO Attphys Unavailable Faith MENJIVAR Attphys Unavailable ILAN STEIN Attphys Unavailable Paulie Silva Attphys Malcolm CANNON Attphys Unavailable Kalyn MARTINEZ Attphys Unavailable David Neff Attphys Denilson Hurd Attphys Magui MILLER Attphys Unavailable Faith MÉNDEZ Attphys Unavailable Jeison CIFUENTES Attphys Unavailable Faith SANTACRUZ Attphys Unavailable Ramandeep Hoffman Attphys ILAN STEIN Admphys Unavailable RicardoPaulie hollingsworth Admphys Payers Payer Name Policy Type Policy Number Effective Date Expiration Date S flo [facility] [id number] 2016-10-20 00:00:00 [facility] [id number] 2016-10-20 00:00:00 [facility] [id number] 2016-10-20 00:00:00 [facility] [id number] 2019-06-19 00:00:[address] [facility] Kalyn [facility] [id number] 2016-10-20 00:00:[address] [facility] [id number] 2019-04-19 00:00:00 [facility] [id number] 2019-04-19 00:00:00 [facility] [id number] 2013-01-17 00:00:00 [facility] [id number] 2013-01-17 00:00:00 [facility] [id number] 2017-09-19 00:00:[address] [facility] [place] [place] [facility] [id number] 2018-03-19 00:00:00 2018-09-18 00:00:00 [facility] [id number] 2017-09-19 00:00:[address] [facility] [place] [facility] [id number] 2018-03-19 00:00:00 2018-09-18 00:00:00 [facility] [id number] 2017-09-19 00:00:[address] [facility] [place] [facility] [id number] 2018-03-19 00:00:00 2018-09-18 00:00:00 [facility] [id number] 2017-09-19 00:00:[address] [facility] [place] [facility] [id number] 2018-03-19 00:00:00 2018-09-18 00:00:00 [facility] [id number] 2017-09-19 00:00:[address] [facility] [place] [facility] [id number] 2017-10-20 00:00:00 2018-09-18 00:00:00 [facility] [id number] 2017-09-19 00:00:00 2017 00:00:00 [facility] [id number] 2017-09-19 00:00:00 [facility] [id number] [facility] [id number] 2017-09-19 00:00:00 [facility] [id number] 2017-12-18 00:00 :00 [facility] [id number] 2017-09-19 00:00:00 [facility] [id number] 2017-12-18 00:00 :00 [facility] [id number] 2017-09-19 00:00:00 [facility] Problems Condition Name Condition Details Condition Category Status Onset Date Resolution Date Last Treatment Date Treating Clinician Comments Source TRACH TRAC H Active 06/27/2019 [facility] Diagnosis Active 2019-06-27 00:00:00 2019-07-12 22:28:00 [facility] TRACHEOSTOMY STATUS TRAC HEOSTOMY STATUS Active 09/08/2018 [facility] Diagnosis Active 2018-09-08 00:00:00 2019-06-20 09:18:00 [facility] ter UNK UNK Active 05/19/2016 [facility] Active 2016-05-19 00:00:00 2016-06-15 12:27:00 [facility] Dyspnea Dyspnea Problem Active [facility] Thrombocytopenia Thrombocytopenia Problem Active [facility] Stenosis of trachea Trachea, stenosis Problem Active [facility] Tracheostomy complication Tracheostomy complication Problem Active [facility] Malfunction of tracheostomy Tracheostomy malfunction Problem Active [facility] Aspiration pneumonia Aspiration pneumonia Problem Active [facility] Diarrhea Diarrhea Problem Active 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 History of ESBL Klebsiella pneumoniae infection Problem Active [facility] Leukocytosis Leukocytosis Problem Active [facility] Urinary tract infection UTI (urinary tract infection) Problem Active [facility] Acute on chronic respiratory failure Acute and chronic respi ratory failure Problem Active [facility] Acute bronchitis Acute bronchitis Problem Active [facility] Hemoptysis Hemoptysis Problem Active [facility] 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 03/01/2019 [facility] Problem 2019-03-01 11:10:18 [facility] Atherosclerosis of aorta Athe rosclerosis of aorta 03/01/2019 [facility] Problem 2019-03-01 11:10:18 [facility] Diaphragmatic hernia without obstruction or gangrene Diaphragmatic hernia without obstruction or gangrene 03/01/2019 [facility] Problem 2019-03-01 11:10:18 [facility] Arthritis (disorder) Arth ritis (disorder) Active Problem 07/03/2019 [facility], [facility] Problem Active 2019-07-03 21:23:40 [facility], [facility] Chaud[facility], [facility] Benign hypertension (disorder) Benign hypertension (disorder) Active Problem 07/03/2019 [facility], [facility] Problem Active 2019-07-03 21:23:40 [facility], [facility], [facility] Diabetes mellitus (disorder) D iabetes mellitus (disorder) Active Problem 07/03/2019 [facility], [facility] Problem Active 2019-07-03 21:23:40 [facility], [facility] Chaudhary, [facility] Fibromyositis (disorder) Fibr omyositis (disorder) Active Problem 07/03/2019 [facility], [facility]SC[facility] Problem Active 2019-07-03 21:23:40 [facility], [facility] Ch[facility] Gastroesophageal reflux disease (disorder) Gastroesophageal reflux disease (disorder) Active Problem 07/03/2019 [facility], [facility] Problem Active 2019-07-03 21:23:40 [facility], OSCAR Chaudhary [facility] Generalized obesity (disorder) Generalized obesity (disorder) Active Problem 07/03/2019 [facility], [facility]SC[facility] Chaudhary,[facility] Problem Active 2019-07-03 21:23:40 [facility], OSC[facility] Chaudhary, [facility] Heart murmur (finding) Hear t murmur (finding) Active Problem 07/03/2019 [facility], [facility]SC[facility] Chaudhary,[facility] Problem Active 2019-07-03 21:23:40 [facility], OSCAR Chaudhary, [facility] Hypothyroidism (disorder) Hypo thyroidism (disorder) Active Problem 07/03/2019 [facility], [facility]SC[facility] Chaudhary,[facility] Problem Active 2019-07-03 21:23:40 [facility], OSCAR Chaudhary, [facility] Irritable colon (disorder) Irr itable colon (disorder) Active Problem 07/03/2019 [facility], [facility]SC[facility] Chaudhary,[facility] Problem Active 2019-07-03 21:23:40 [facility], OSC[facility] Chaudhary, [facility] UNSPECIFIED TRACHEOSTOMY COMPLICATION UNSPECIFIED TRACHEOSTOMY COMPLICATION Active [facility] Diagnosis Active 2019-07-12 22:28:00 [facility] ter Other specified diseases of upper respiratory tract Other specified diseases of upper respiratory tract 08/17/2018 03/01/2019 [facility] Problem 2018-08-17 07:30:28 2019-03-01 11:10:18 2 11:10:18 [facility] Allergies, Adverse Reactions, Alerts Allergy Name Allergy Type Status Severity Reaction(s) Onset Date Inacti ve Date Treating Clinician Comments Source Penicillins DA Active MO 2019-08-02 00:00:00 [facility] heparin DA Active U 2019-08-02 00:00:00 [facility] No Known Drug Allergies DA Active U 2019-07-28 00:00:00 [facility] Penicillins DA Active SV 2018-12-03 00:00:00 [facility] heparin DA Active SV 2018-12-03 00:00:00 [facility] titanium DA Active SV 2018-12-03 00:00:00 [facility] Penicillin Allergy to Substance Active Unknown 2018-06-21 00:00:00 [facility] Titanium Allergy to Substance Active Unknown 2018-06-21 00:00:00 [facility] Penicillins DA Active 2017-11-11 00:00:00 [facility] titanium DA Active 2017-11-11 00:00:00 [facility] heparin DA Active 2017-11-11 00:00:00 [facility] penicillins penicillins Active [facility] heparin heparin Active [facility] Other Environmental Allergy<sup>1</sup> Other Environmental Allergy<sup>1</sup> Active [facility] Social History Social Habit Start Date Stop Date Quantity Comments Source Social History 2016-06-14 17:34:36 2016-06-14 17:34:36 [facility] Medications Ordered Medication Name Filled Medication Name Start Date Stop Da te Current Medication? Ordering Clinician Indication Dosage Frequency Signature (SIG) Comments Components Source Ascorbic Acid 500 Mg Tablet Ascorbic Acid 500 Mg Tablet 2019-07-13 00:00:00 Yes Pilar [place] Commission Specialist 500 Twice A Day [facility] Ferrous Sulfate 325 Mg Tablet. Ferrous Sulfate 325 Mg Dunia rubalcava 2019-07-13 00:00:00 Yes Pilar Byers [place] [employer] 325 Twice A Day [facility] Fluconazole 100 Mg Tablet Fluconazole 100 Mg Tablet 2019-07-13 00:00: 00 Yes Pilar Byers [place] Commission Specialist 100 Daily [facility] levothyroxine 175 mcg (0.175 mg) oral tablet 2019-06-29 20:48:00 Yes 175 microgram = 1 tab, PO, Daily, # 15 tab, 0 Refill(s) [facility] Metoclopramide 5 MG Oral Tablet 2019-06-29 20:48:00 No 5 mg = 1 tab, PO, Daily, # 30 tab, 0 Refill(s) [facility] Clonidine Hydrochloride 0.1 MG Oral Tablet 2019-06-29 20:48:00 Yes 160, 0 Refill(s) [facility] ter cefTRIAXone 1 g intravenous injection 2019-06-29 20:48:00 N o 1 gm, IV, 1G/100ML NS //INFUSE OVER 30 MIN IN Q12H, 0 Refill(s) [facility] sennosides, FDC 2019-06-29 02:00:00 No Notes: (Same as: Senokot) [facility] POLYETHYLENE GLYCOL 3350 2019-06-28 14:00:00 No Notes: Dissolve in 8 oz of water or juice. (Same as: Miralax) [facility] Allopurinol 2019-06-28 14:00:00 No Notes: ( Same as: Zyloprim) [facility] Furosemide 40 MG Oral Tablet [Lasix] 2019-06-28 14:00:00 No Notes: (Same as: Lasix) May cause GI upset. Give with food or milk. [facility] Thyroxine 2019-06-28 14:00:00 No Notes: Take 1 hour before or 2 hours after meal; Enteral feeds may interefere with the absorption of this medication. (Same as: Levothroid) [facility] Sodium Chloride 0.9% IV 1,000 mL 2019-06-28 04:57:00 No 1,000 mL, Rate: 75 ml/hr, Infuse over: 13.3 hr, Route: IV, Dosing Weight 81.818 kg, Total Volume: 1,000, Start date: 06/27/19 23:57:00 CDT, Duration: 30 day, Stop date: 07/27/19 23:56:00 MECH[employer]IC FOREMAN, 2, m2, 0 [facility] Oxycodone Hydrochloride 5 MG Oral Tablet 2019-06-28 02:38:00 No Notes: (Same as: Roxicodone) [facility] Naloxone 2019-06-28 02:38:00 No Notes: Same as Narcan [facility] Melatonin 2019-06-28 02:38:00 No Notes: ([facility] as: Melatonin) [facility] Amitriptyline 2019-06-28 02:00:00 No Notes: (Same as: Elavil) [facility] ondansetron (ANES) 2019-06-28 00:26:00 No Route: IV, Drug form: INJ, ONCE, Stop date: 06/27/19 19:26:00 CDT [facility] glycopyrrolate (ANES) 2019-06-28 00:26:00 No Route: IV, Drug form: INJ, ONCE, Stop date: 06/27/19 19:26:00 CDT [facility] neostigmine (ANES) 2019-06-28 00:26:00 No Route: IV, Drug form: INJ, ONCE, Stop date: 06/27/19 19:26:00 CDT [facility] dexamethasone (ANES) 2019-06-27 23:53:00 No Route: IV, Drug form: INJ, ONCE, Stop date: 06/27/19 18:53:00 CDT [facility] fentaNYL ([facility]) 2019-06-27 23:38:00 No Route: IV, Drug form: INJ, ONCE, Stop date: 06/27/19 18:38:[address] [facility] lidocaine ([facility]) 2019-06-27 23:33:00 No Route: IV, Drug form: INJ, ONCE, Stop date: 06/27/19 18:33:[address] [facility] propofol ([facility]) 2019-06-27 23:33:00 No Route: IV, Drug form: INJ, ONCE, Stop date: 06/27/19 18:33:[address] [facility] rocuronium ([facility]) 2019-06-27 23:23:00 No Route: IV, Drug form: INJ, ONCE, Stop date: 06/27/19 18:23:[address] [facility] phenylephrine ([facility]) 2019-06-27 23:23:00 No Route: IV, Drug form: INJ, ONCE, Stop date: 06/27/19 18:23:00 CDT [facility] Lactated Ringers Injection IV ([facility]) 1000 mL 2019-06-27 22:32:00 No Route: IV, Total Volume: 1,000, Start date: 06/27/19 17:32:00 CDT, Stop date: 06/27/19 18:32:00 CDT [facility] enter Dextrose 50% Syringe 2019-06-27 22:30:00 No 12.5 gm, 25 mL, Route: IVP, Drug Form: INJ, Dosing Weight 81.818, kg, PRN, PRN Blood Glucose Results, Start date: 06/27/19 17:30:00 CDT, Duration: 30 day, Stop date: 07/27/19 16:29:00 MECHANIC FOREMAN, [address] [facility] [address] Glucagon 2019-06-27 22:30:00 No 1 mg, Route: IM, Drug form: PDR/INJ, PRN, Dosing Weight 81.818, kg, PRN Blood Glucose Results, Start date: 06/27/19 17:30:00 CDT, Duration: 30 day, Stop date: 07/27/19 16:29:00 MECHANIC FOREMAN, 0 [facility] Insulin regular 2019-06-27 22:30:00 No Notes: (Same as: Humulin R) Roll in palms of hands gently; Do not shake vigorously. WASTE: F/P - Black; E - Municipal Trash Bin Stable for 31 days at room temperature Expires in days from Date [facility] Dextrose 50% Syringe 2019-06-27 22:06:00 No 12.5 gm, 25 mL, Route: IVP, Drug Form: INJ, Dosing Weight 81.818, kg, PRN, PRN Blood Glucose Results, Start date: 06/27/19 17:06:00 CDT, Duration: 30 day, Stop date: 07/27/19 16:05:00 MECHANIC FOREMAN, 0 [facility] Glucagon 2019-06-27 22:06:00 No 1 mg, Route: IM, Drug form: PDR/INJ, PRN, Dosing Weight 81.818, kg, PRN Blood Glucose Results, Start date: 06/27/19 17:06:00 CDT, Duration: 30 day, Stop date: 07/27/19 16:05:00 MECHANIC FOREMAN, 0 [facility] Bisacodyl 2019-06-27 22:06:00 No Notes: (Same As: Dulcolax, Bisco-Lax) [facility] Ondansetron 2019-06-27 22:06:00 No Notes: (Same as: Zofran) MEDICATION WASTE Product Size: 4 mg Product Wasted: ___ mg [facility] Melatonin 2019-06-27 22:06:00 No Notes: (Sa me as: Melatonin) [facility] Acetaminophen 2019-06-27 22:06:00 No Notes: Do not exceed 4 gm/day. (Same as: Tylenol) [facility] Saline Flush 0.9% 2019-06-27 20:12:00 No 10 mL, Route: IVP, Drug Form: INJ, Dosing Weight 81.818, kg, PRN, PRN Line Flush, Start date: 06/27/19 15:12:00 CDT, Duration: 30 day, Stop date: 07/27/19 14:11:00 MECHANIC FOREMAN, 0 [facility] potassium chloride 2018-11-07 15:00:00 No Notes: (Same as: Potassium Chloride) [facility] Thyroxine 2018-11-07 15:00:00 No Notes: Take 1 hour before or 2 hours after meal; Enteral feeds may interefere with the absorption of this medication. (Same as: Levothroid) [facility] Furosemide 40 MG Oral Tablet [Lasix] 2018-11-07 15:00:00 No Notes: (Same as: Lasix) May cause GI upset. Give with food or milk. [facility] Allopurinol 2018-11-07 15:00:00 No Notes: ( Same as: Zyloprim) [facility] Metformin hydrochloride 500 MG Oral Tablet 2018-11-07 14:00:00 No Notes: (Same as: Glucophage) Take with meal [facility] Acetaminophen 2018-11-07 06:00:00 No Notes: Max acetaminophen = 4000mg/day (4 gm/day). (Same as: Tylenol) [facility] Dicyclomine 2018-11-07 03:00:00 No Notes: ( Same as:Bentyl) [facility] Amitriptyline 2018-11-07 03:00:00 No Notes: (Same as: Elavil) [facility] tramadol hydrochloride 50 MG Oral Tablet 2018-11-06 23:00:00 No Notes: Not to exceed 400mg/day. (Same As: Ultram) [facility] Docusate 2018-11-06 23:00:00 No Notes: (Prasanth e as: Colace) [facility] Ondansetron 2018-11-06 23:00:00 No Notes: (Same as: Zofran) MEDICATION WASTE Product Size: 4 mg Product Wasted: ___ mg [facility] Promethazine 2018-11-06 22:16:00 No Notes: Do not give IV push. (Same as: Phenergan) [facility] Ondansetron 2018-11-06 22:16:00 No Notes: (Same as: Zofran) MEDICATION WASTE Product Size: 4 mg Product Wasted: ___ mg [facility] Naloxone 2018-11-06 22:16:00 No Notes: Same as Narcan [facility] Oxycodone 2018-11-06 22:16:00 No Notes: (Sa me as: Roxicodone) [facility] Acetaminophen 2018-11-06 22:16:00 No Notes: Max acetaminophen 4000 mg/day (4 gm/day). (Same as: Tylenol Extra Strength) [facility] Labetalol 2018-11-06 22:16:00 No 10 mg, 2 mL, Route: IVP, Drug form: INJ, Q5Min, Dosing Weight 86.364, kg, PRN Elevated BP, Start date: 11/06/18 16:16:00 MECHANIC FOREMAN, Duration: 5 doses or times, Stop date: 11/07/18 0:00:00 MECHANIC FOREMAN [facility] esmolol 2018-11-06 22:16:00 No Notes: (Same as: Brevibloc) [facility] Flumazenil 2018-11-06 22:16:00 No Notes: (S melanie as: Romazicon) [facility] glycopyrrolate ([facility]) 2018-11-06 22:15:00 No Route: IV, Drug form: INJ, ONCE, Stop date: 11/06/18 16:15:00 MECHANIC FOREMAN [facility] ondansetron ([facility]) 2018-11-06 22:15:00 No Route: IV, Drug form: INJ, ONCE, Stop date: 11/06/18 16:15:00 MECHANIC FOREMAN [facility] neostigmine ([facility]) 2018-11-06 22:15:00 No Route: IV, Drug form: INJ, ONCE, Stop date: 11/06/18 16:15:00 MECHANIC FOREMAN [facility] dexamethasone ([facility]) 2018-11-06 22:11:00 No Route: IV, Drug form: INJ, ONCE, Stop date: 11/06/18 16:11:00 MECHANIC FOREMAN [facility] fentaNYL ([facility]) 2018-11-06 22:11:00 No Route: IV, Drug form: INJ, ONCE, Stop date: 11/06/18 16:11:[address] [facility] propofol (ANES) 2018-11-06 22:11:00 No Route: IV, Drug form: INJ, ONCE, Stop date: 11/06/18 16:11:[address] [facility] rocuronium (ANES) 2018-11-06 21:56:00 No Route: IV, Drug form: INJ, ONCE, Stop date: 11/06/18 15:56:[address] [facility] Lactated Ringers Injection IV ([facility]) 1000 mL 2018-11-06 21:16:00 No Route: IV, Total Volume: 1,000, Start date: 11/06/18 15:16:00 MECHANIC FOREMAN, Stop date: 11/06/18 16:16:00 MECHANIC FOREMAN [facility] enter sugammadex 2018-11-06 20:59:00 No Notes: (S melanie as: Bridion) [facility] 8 HR Acetaminophen 650 MG Extended Release Tablet [Tylenol] 2018-11-02 16:19:00 Yes 1,300 mg = 2 tab, PO, Q8H, 0 Refill(s) [facility] potassium chloride 20 mEq oral tablet, extended release 2018-11-02 16:18:00 Yes 20 mEq = 1 tab, PEG, Daily, # 30 tab, 3 Refill(s) [facility] Furosemide 40 MG Oral Tablet [Lasix] 2018-11-02 16:17:00 Ye s 40 mg = 1 tab, PEG, Daily, # 30 tab, 0 Refill(s) [facility] levothyroxine 150 mcg (0.15 mg) oral tablet 2018-11-02 16:17:00 Yes 150 microgram = 1 tab, PEG, Daily, # 30 tab, 0 Refill(s) [facility] allopurinol 100 mg oral tablet 2018-11-02 16:15:00 Yes 100 mg = 1 tab, PEG, Daily, # 60 tab, 0 Refill(s) [facility] Folic Acid 1 Mg Tablet Folic Acid 1 Mg Tablet 2018-08-14 00:00:00 Yes Pilar Simeon Commission Specialist [address] [facility] Acetaminophen With Codeine (Tylenol With Codeine #3 Ta blet) 1 Each Tablet Acetaminophen With Codeine (Tylenol With Codeine #3 Tablet) 1 Each Tablet 2018-08-04 00:00:00 Yes Pilar M [place] Commission Specialist 300 Every 6 Hours for Pain [facility] Loperamide Hcl (Imodium*) 2 Mg Cap Loperamide Hcl (Imodium*) 2 Mg Cap 2018-08-04 00:00:00 Yes Pilar M [place] Commission Specialist 2 Th ree Times A Day as needed for Diarrhea [facility] Vancomycin Hcl (Vancocin Hcl) 250 Mg Capsule Vancomyci n Hcl (Vancocin Hcl) 250 Mg Capsule 2018-08-04 00:00:00 Yes Pilar M [place] Commission Specialist 250 Every 6 Hours [facility] Allopurinol 300 Mg Tablet Allopurinol 300 Mg Tablet 2018-06-28 00:00: 00 Yes Pilar M Ayo Commission Specialist 100 Daily [facility] Amitriptyline Hcl 25 Mg Tablet Amitriptyline Hcl 25 Mg Table t 2018-06-28 00:00:00 Yes Pilar M Ayo Commission Specialist 25 Bedtime [facility] Clonidine Hcl (Catapres) 0.1 Mg Tablet Clonidine Hcl (Catapr es) 0.1 Mg Tablet 2018-06-28 00:00:00 Yes Pilar M Ayo Commission Specialist .1 Every 8 Hours as needed for Sbp>160 [facility] Furosemide (Lasix) 40 Mg Tablet Furosemide (Lasix) 40 Mg Tab let 2018-06-28 00:00:00 Yes Pilar M [place] Commission Specialist 40 Daily [facility] Insulin Aspart (Novolog) 100 Units/1 Ml Inj Insulin As part (Novolog) 100 Units/1 Ml Inj 2018-06-28 00:00:00 Yes Pilar M [place] Commission Specialist 0 Ever y 6 Hours [facility] Lactobacillus Acidophilus (Acidophilus) 1 Each Tab.elma w Lactobacillus Acidophilus (Acidophilus) 1 Each Tab.chew 2018-06-28 00:00:00 Ye s Pilar M [place] Commission Specialist 1 Twice A Day [facility] Levothyroxine Sodium (Synthroid) 75 Mcg Tab Levothyrox ine Sodium (Synthroid) 75 Mcg Tab 2018-06-28 00:00:00 Yes Pilar Simeon Commission Specialist 75 Koby y@[email or web address] [facility] Lorazepam 0.5 Mg Tablet Lorazepam 0.5 Mg Tablet 2018-06-28 00:00:00 Yes Pilar Simeon Commission Specialist .5 Three Times A Day as needed for Anxiet y [facility] Metoclopramide Hcl (Reglan) 5 Mg Tablet Metoclopramide Hcl ( Reglan) 5 Mg Tablet 2018-06-28 00:00:00 Yes Pialr Simeon Commission Specialist 5 Three T imes A Day [facility] Mucomyst Mucomyst 2018-06-28 00:00:00 Yes Pilar Simeon Commission Specialist 4 Twice A Day as needed for Thick Secretions [facility] Potassium Chloride (K Dur*) 10 Meq Tabcr Potassium Chl oride (K Dur*) 10 Meq Tabcr 2018-06-28 00:00:00 Yes Pilar Simeon Commission Specialist 20 Daily [facility] Sitagliptin Phosphate (Januvia) 100 Mg Tablet Sitaglip tin Phosphate (Januvia) 100 Mg Tablet 2018-06-28 00:00:00 Yes Pilar Simeon Commission Specialist 50 Daily [facility] Acetaminophen With Codeine (Tylenol With Codeine #3 Tablet) 1 Each Tablet, 300 Mg Oral Acetaminophen With Codeine (Tylenol With Codeine #3 Tablet) 1 Each Tablet, 300 Mg Oral 2018-06-28 00:00:00 2018-08-04 00:00:00 No Pilar Simeon Commission Specialist 300 Every 6 Hours for Pain [facility] Cholestyramine (Cholestyramine Light Packet) 4 Gm Pack , 4 Gm Oral Cholestyramine (Cholestyramine Light Packet) 4 Gm Pack, 4 Gm Oral 2018-06-28 00:00:00 2018-08-04 00:00:00 No Pilar Simeon Commission Specialist 4 Twice A Day as needed for Diarrhea [facility] Loperamide Hcl (Imodium*) 2 Mg Cap, 2 Mg Peg Tube Jerod ramide Hcl (Imodium*) 2 Mg Cap, 2 Mg Peg Tube 2018-06-28 00:00:2018-08-04 00:00:00 No Pilar M [place] Commission Specialist 2 Three Times A Day as needed for Diarrhea [facility] Simethicone 80 Mg Chew, 80 Mg Oral Simethicone 80 Mg Chew, 8 0 Mg Oral 2018-06-28 00:00:00 2018-08-04 00:00:00 No Pilar M Ayo Commission Specialist 80 After Meals And At Bedtime as needed for Gas [facility] Vancomycin Hcl (Vancocin Hcl) 250 Mg Capsule, 250 Mg O ral Vancomycin Hcl (Vancocin Hcl) 250 Mg Capsule, 250 Mg Oral 2018-06-28 00:00:00 2018-08-04 00:00:00 No Pilra M Ayo Commission Specialist 250 Every 6 Hours [facility] Cholestyramine (Cholestyramine Light Packet) 4 Gm Pack , 4 Gm Oral Cholestyramine (Cholestyramine Light Packet) 4 Gm Pack, 4 Gm Oral 2018-06-06 00:00:00 2018-06-28 00:00:00 No Pilar M Ayo Commission Specialist 4 Twice A Day as needed for Diarrhea [facility] Clonidine Hcl (Catapres) 0.1 Mg Tablet, 0.1 Mg Oral Cl onidine Hcl (Catapres) 0.1 Mg Tablet, 0.1 Mg Oral 2018-04-15 00:00:00 2018-06-28 00:00:00 No Pilar M [place] Commission Specialist .1 Every 8 Hours as needed for Sbp>160 [facility] Mucomyst , 4 Ml Nebullizer Mucomyst , 4 Ml Nebullizer 2018-04-15 00:00:2018-06-28 00:00:00 No Pilar M [place] Commission Specialist 4 Twice A Day as needed for Thick Secretions [facility] Insulin Aspart (Novolog) 100 Units/1 Ml Inj, 0 Sub-Q Insulin Aspart (Novolog) 100 Units/1 Ml Inj, 0 Sub-Q 2018-04-13 00:00:00 2018-06-28 00:00:00 No Pilar M [place] Commission Specialist [address] [facility] Potassium Chloride (K Dur*) 10 Meq Tabcr, 20 Meq Oral Potassium Chloride (K Dur*) 10 Meq Tabcr, 20 Meq Oral 2018-04-13 00:00:00 2018-06-28 00:00:00 No Pilar Simeon Commission Specialist 20 Daily [facility] Balsam [place] Oil (Venelex Ointment) 60 Gm Oint.. .g., 60 Gm Topical Balsam [place] Oil (Venelex Ointment) 60 Gm Oint...g., 60 Gm Topical 2018-03-26 00:00:00 2018-04-13 00:00:00 No Kei Bundy Commission Specialist 60 Twice A Day [facility] Dextrose (Dextrose 50%-Water Syringe) 50 Ml Inj, 50 Ml Intraven Dextrose (Dextrose 50%-Water Syringe) 50 Ml Inj, 50 Ml Intraven 2018-03-26 00:00:00 2018-04-13 00:00:00 No Kei Bundy Commission Specialist 50 As Needed as needed for Blood Sugar [facility] Levalbuterol Hcl (Xopenex) 1.25 Mg/3 Ml Vial.neb, 1.25 Mg Inhalation Levalbuterol Hcl (Xopenex) 1.25 Mg/3 Ml Vial.neb, 1.25 Mg Inhalation 2018-03-26 00:00:00 2018-04-13 00:00:00 No Kei Bundy Commission Specialist 1.25 Rt Q6h [facility] Lorazepam 2 Mg/1 Ml Vial, 1 Mg Intraven Lorazepam 2 Mg/1 Ml Vial, 1 Mg Intraven 2018-03-26 00:00:00 2018-04-13 00:00:00 No Kei Bundy Np 1 Every 6 Hours as needed for Agitation [facility] Metoprolol Tartrate (Lopressor) 25 Mg Tab Metoprolol T artrate (Lopressor) 25 Mg Tab 2018-03-09 00:00:00 Yes Pilar Simeon Commission Specialist 25 Every 12 Hours [facility] Ascorbic Acid 500 Mg Tablet, 500 Mg Oral Ascorbic Acid 500 Mg Tablet, 500 Mg Oral 2018-03-09 00:00:00 2019-07-13 00:00:00 No Pilar Simeon Commission Specialist 500 Twice A Day [facility] Cholestyramine (Cholestyramine Light Packet) 4 Gm Pack , 4 Gm Oral Cholestyramine (Cholestyramine Light Packet) 4 Gm Pack, 4 Gm Oral 2018-03-09 00:00:00 2018-08-04 00:00:00 No Pilar Simeon Commission Specialist 4 Twice A Day as needed for Diarrhea [facility] Ferrous Sulfate 325 Mg Tablet, 325 Mg Peg Tube Ferrous Sulfate 325 Mg Tablet, 325 Mg Peg Tube 2018-03-09 00:00:00 2018-04-13 00:00:00 No Pilar purvis Commission Specialist 325 Twice Daily With Meals [facility] Vancomycin Hcl (Vancocin Hcl) 250 Mg Capsule, 250 Mg O ral Vancomycin Hcl (Vancocin Hcl) 250 Mg Capsule, 250 Mg Oral 2018-03-09 00:00:00 2018-04-13 00:00:00 No Pilar Simeon Commission Specialist 250 Every 6 Hours [facility] Acetaminophen 325 Mg Tablet Acetaminophen 325 Mg Tablet 2018-01-20 00:00:00 Yes Kei Bundy Np 650 Every 4 Hours as needed for Pain And Temperature [facility] Balsam [place] Oil (Venelex Ointment) 60 Gm Oint.. .g. Balsam [place] Oil (Venelex Ointment) 60 Gm Oint...g. 2018-01-20 00:00:00 Yes Kei Bundy Np 0 Daily [facility] Ipratropium [place] 0.2 Mg/1 Ml Solution Ipratropium B romide 0.2 Mg/1 Ml Solution 2018-01-20 00:00:00 Yes Kei Bundy Np 2.5 Rt Q 6h [facility] Levalbuterol Hcl (Xopenex) 0.63 Mg/3 Ml Vial[facility] Leval buterol Hcl (Xopenex) 0.63 Mg/3 Ml Vial.neb 2018-01-20 00:00:00 Yes Kei Bundy Np . 63 Rt Q6h as needed for [employer] [facility] Simethicone 80 Mg Chew Simethicone 80 Mg Chew 2018-01-20 00:00:00 Yes Kei Bundy Np 80 After Meals And At Bedtime as needed for Gas [facility] Guaifenesin (Mucinex) 600 Mg Tablet.er, 600 Mg Oral Gu aifenesin (Mucinex) 600 Mg Tablet.er, 600 Mg Oral 2018-01-20 00:00:00 2018-06-06 00:00:00 No Kei Bundy Np 600 Every 6 Hours [facility] Calcium Carbonate 500 Mg Tab, 500 Mg Oral Calcium Carb melissa 500 Mg Tab, 500 Mg Oral 2018-01-20 00:00:00 2018-04-13 00:00:00 No Kei Bundy Commission Specialist 500 Daily [facility] Cholestyramine (Cholestyramine Light Packet) 4 Gm Pack , 4 Gm Oral Cholestyramine (Cholestyramine Light Packet) 4 Gm Pack, 4 Gm Oral 2018-01-20 00:00:00 2018-04-13 00:00:00 No eKi Bundy Np 4 Twice A Day as needed for Diarrhea [facility] Levalbuterol Hcl (Xopenex) 0.63 Mg/3 Ml Vial.neb, 0.63 Mg Inhalation Levalbuterol Hcl (Xopenex) 0.63 Mg/3 Ml Vial.neb, 0.63 Mg Inhalation 2018-01-20 00:00:00 2018-04-13 00:00:00 No Kei Bundy Np .63 Rt Q4h [facility] Neomy Sulf/Bacitrac Zn/Poly (Triple Anti biotic Ointment) 28 Gm Oint...g., 0 Gm Topically Neomy Sulf/Bacitrac Zn/Poly (Triple Anti biotic Ointment) 28 Gm Oint...g., 0 Gm Topically 2018-01-20 00:00:00 2018-04-13 00:00:00 No Kei Bundy Np 0 Three Times A Day [facility] Saline 0.65% Gregorio Soln 1 Freedom Soln, 0 Freedom Nasal Sali ne 0.65% Gregorio Soln 1 Freedom Soln, 0 Freedom Nasal 2018-01-20 00:00:00 2018-04-13 00:00:00 No Kei Bundy Np 0 Every 4 Hours While Awake [facility] Metoprolol Succinate (Toprol Xl) 25 Mg Tab.er.24h, 12. 5 Mg Oral Metoprolol Succinate (Toprol Xl) 25 Mg Tab.er.24h, 12.5 Mg Oral 2018-01-20 00:00:00 2018-03-09 00:00:00 No Kei Bundy Np 12.5 Daily [facility] Insulin Regular, Human (Humulin R) 100 Unit/1 Ml Vial, 0 Unit Sub-Q Insulin Regular, Human (Humulin R) 100 Unit/1 Ml Vial, 0 Unit Sub-Q 2018-01-20 00:00:00 2018-02-24 00:00:00 No Kei Bundy Np 0 Every 6 Maddison rs [facility] Magnesium Oxide 400 Mg Tablet, 400 Mg Oral Magnesium O xide 400 Mg Tablet, 400 Mg Oral 2018-01-20 00:00:00 2018-02-24 00:00:00 No Kei Bundy Np 400 Twice A Day [facility] Pantoprazole Sod (Protonix) 40 Mg/Ml Susp, 40 Mg Oral Pantoprazole Sod (Protonix) 40 Mg/Ml Susp, 40 Mg Oral 2018-01-20 00:00:00 2018-02-24 00:00:00 No Kei Bundy Np 40 Daily [facility] Albuterol 0.833 MG/ML / Ipratropium [place] 0.167 MG/ML Inha lant Solution 2016-06-15 18:20:00 No 3 mL, Route: NEB, Dosing Weight 152.273, kg, ONCE, STAT, Start date: 06/15/16 13:20:00 CDT, Stop date: 06/15/16 13:20:00 CDT [facility] Calcium Chloride 0.0014 MEQ/ML / Potassi um Chloride 0.004 MEQ/ML / Sodium Chloride 0.103 MEQ/ML / Sodium Lactate 0.028 MEQ/ML Injectable Solution 2016-06-15 18:20:00 No 1,000 mL, Rate: 25 ml/hr, Infuse over: 40 hr, Route: IV, Dosing Weight 152.273 kg, Total Volume: 1,000, Start date: 06/15/16 13:20:00 CDT, Duration: 30 day, Stop date: 07/15/16 13:19:00 CDT [facility] Sodium Chloride 0.154 MEQ/ML Injectable Solution 2016-06-15 18:2 0:00 No 500 mL, Rate: 25 ml/hr, Infu se over: 20 hr, Route: IV, Dosing Weight 152.273 kg, Total Volume: 500, Start date: 06/15/16 13:20:00 CDT, Duration: 30 day, Stop date: 07/15/16 13:19:00 CDT [facility] dicyclomine 20 mg oral tablet 2016-06-14 17:57:00 Yes 20 mg = 1 tab, PO, QID, # 28 tab, 0 Refill(s) [facility] omeprazole 40 mg oral delayed release capsule 2016-06-14 17:56:0 0 Yes 40 mg = 1 cap, PO, Daily, # 30 cap, 0 Refill(s) [facility] losartan 100 mg oral tablet 2016-06-14 17:56:00 Yes 100 mg = 1 tab, PO, Daily, # 30 tab, 0 Refill(s) [facility] sitag[facility] 100 MG Oral Tablet [Januvia] 2016-06-14 17:56:00 Yes 100 mg = 1 tab, PO, Daily, # 30 tab, 0 Refill(s) [facility] amitriptyline 25 mg oral tablet 2016-06-14 17:56:00 Yes 25 mg = 1 tab, PO, Bedtime, # 30 tab, 1 Refill(s) [facility] Metformin hydrochloride 500 MG Oral Tablet 2016-06-14 17:55:00 Yes 1,000 mg = 2 tab, PO, BID-Meals, # 30 tab, 0 Refill(s) [facility] Acetaminophen With Codeine (Tylenol With Codeine #3 Tablet) 1 Each Tablet, 300 Mg Oral Acetaminophen With Codeine (Tylenol With Codeine #3 Tablet) 1 Each Tablet, 300 Mg Oral 2018-06-28 00:00:00 No 300 Every 6 Hours for Pain [facility] Allopurinol 300 Mg Tablet, 100 Mg Oral Allopurinol 300 Mg Tablet , 100 Mg Oral 2018-06-28 00:00:00 No 100 Daily [facility] Amitriptyline Hcl 25 Mg Tablet, 25 Mg Oral Amitriptyli ne Hcl 25 Mg Tablet, 25 Mg Oral 2018-06-28 00:00:00 No 25 Bedtime [facility] Budesonide (Budesonide Ec) 3 Mg Capdr...er, 3 Mg Inhal ation Budesonide (Budesonide Ec) 3 Mg Capdr...er, 3 Mg Inhalation 2018-06-28 00:00:00 N o 3 Daily [facility] Furosemide (Lasix) 40 Mg Tablet, 40 Mg Oral Furosemide (Lasix) 40 Mg Tablet, 40 Mg Oral 2018-06-28 00:00:00 No 40 Daily [facility] Furosemide (Lasix) 40 Mg Tablet, 40 Mg Oral Furosemide (Lasix) 40 Mg Tablet, 40 Mg Oral 2018-06-28 00:00:00 No 40 Daily [facility] Lactobacillus Acidophilus (Acidophilus) 1 Each Tab.elma w, 1 Tab Oral Lactobacillus Acidophilus (Acidophilus) 1 Each Tab.chew, 1 Tab Oral 2018-06-28 00:00:00 No 1 Daily [facility] Levothyroxine Sodium 50 Mcg Tablet, 50 Mcg Oral Levoth yroxine Sodium 50 Mcg Tablet, 50 Mcg Oral 2018-06-28 00:00:00 No 50 Koby y [facility] Levothyroxine Sodium (Synthroid) 50 Mcg Tab, 50 Mcg Or al Levothyroxine Sodium (Synthroid) 50 Mcg Tab, 50 Mcg Oral 2018-06-28 00:00:00 No 50 Today At 6:30AM [facility] Lorazepam 0.5 Mg Tablet, 0.5 Mg Peg Tube Lorazepam 0.5 Mg Tablet, 0.5 Mg Peg Tube 2018-06-28 00:00:00 No .5 Thre e Times A Day as needed for Anxiety [facility] Lorazepam 0.5 Mg Tablet, 0.5 Mg Oral Lorazepam 0.5 Mg Tablet, 0. 5 Mg Oral 2018-06-28 00:00:00 No .5 Every 8 Hours for An xiety [facility] Metoclopramide Hcl (Reglan) 5 Mg Tablet, 5 Mg Peg Tube Metoclopramide Hcl (Reglan) 5 Mg Tablet, 5 Mg Peg Tube 2018-06-28 00:00:00 No 5 Three Times A Day [facility] Metoclopramide Hcl 5 Mg/5 Ml Solution, 5 Mg Peg Tube M etoclopramide Hcl 5 Mg/5 Ml Solution, 5 Mg Peg Tube 2018-06-28 00:00:00 No 5 Three Times A Day [facility] Simethicone 80 Mg Chew, 80 Mg Oral Simethicone 80 Mg Chew, 80 Mg Oral 2018-06-28 00:00:00 No 80 After Meals And At B edtime [facility] Sitagliptin Phosphate (Januvia) 100 Mg Tablet, 50 Mg O ral Sitagliptin Phosphate (Januvia) 100 Mg Tablet, 50 Mg Oral 2018-06-28 00:00:00 No 50 Daily [facility] Sitagliptin Phosphate (Januvia) 100 Mg Tablet, 50 Mg O ral Sitagliptin Phosphate (Januvia) 100 Mg Tablet, 50 Mg Oral 2018-06-28 00:00:00 No 50 Daily [facility] Lactobac Cmb #3/Fos/Pantethine (Probioti c & Acidophilus Cap) 1 Each Capsule, 1 Cap Peg Tube Lactobac Cmb #3/Fos/Pantethine (Probioti c & Acidophilus Cap) 1 Each Capsule, 1 Cap Peg Tube 2018-06-06 00:00:00 No 1 Every 8 Hours [facility] Acetaminophen With Codeine (Tylenol With Codeine #3 Tablet) 1 Each Tablet, 300 Mg Oral Acetaminophen With Codeine (Tylenol With Codeine #3 Tablet) 1 Each Tablet, 300 Mg Oral 2018-04-17 00:00:00 No 300 Every 4 Hours as needed for Pain [facility] Allopurinol 100 Mg Tablet, 100 Mg Oral Allopurinol 100 Mg Tablet , 100 Mg Oral 2018-04-17 00:00:00 No 100 Daily [facility] Amitriptyline Hcl 25 Mg Tablet, 25 Mg Oral Amitriptyli ne Hcl 25 Mg Tablet, 25 Mg Oral 2018-04-17 00:00:00 No 25 Bedtime [facility] Calcium Otc , 500 Mg Does Not Apply Calcium Otc , 500 Mg Does No t Apply 2018-04-13 00:00:00 No 500 [facility] Dicyclomine Hcl 20 Mg Tablet, 20 Mg Oral Dicyclomine H cl 20 Mg Tablet, 20 Mg Oral 2018-04-13 00:00:00 No 20 Four Times Daily [facility] Famotidine (Pepcid) 20 Mg Tablet, 40 Mg Peg Tube Famot idine (Pepcid) 20 Mg Tablet, 40 Mg Peg Tube 2018-04-13 00:00:00 No 40 T wice A Day [facility] Novolog Ss , Novolog Ss , 2018-04-13 00:00:00 No [facility] Metronidazole (Flagyl) 250 Mg Tablet, 500 Mg Peg Tube Metronidazole (Flagyl) 250 Mg Tablet, 500 Mg Peg Tube 2018-03-09 00:00:00 No 500 Every 8 Hours [facility] Ipratropium/Albuterol Sulfate (Combivent Respimat Inhal Freedom) 4 Gm Aer.w.adap, 4 Gm Inhalation Ipratropium/Albuterol Sulfate (Combivent Respimat Inhal Freedom) 4 Gm Aer.w.adap, 4 Gm Inhalation 2018-02-24 00:00:00 No 4 Every 6 Hours While Awake [facility] Metformin Hcl 500 Mg Tablet, 1000 Mg Oral Metformin Hc l 500 Mg Tablet, 1000 Mg Oral 2018-02-24 00:00:00 No 1000 Twice A Day [facility] Potassium Chloride 10 Meq Tab.er.prt, 10 Meq Oral Pota ssium Chloride 10 Meq Tab.er.prt, 10 Meq Oral 2018-02-24 00:00:00 No 10 Twice A Day [facility] Prednisone 20 Mg Tab, 20 Mg Oral Prednisone 20 Mg Tab, 20 Mg Ora l 2018-02-24 00:00:00 No 20 Daily [facility] Vital Signs Vital Name Observation Time Observation Value Comments Source Temperature Oral (F) 2019-07-01 17:01:00 97.6 F [facility] Heart Rate 2019-07-01 17:01:00 [facility] Systolic (mm Hg) 2019-07-01 17:01:00 [facility] Diastolic (mm Hg) 2019-07-01 17:01:00 [facility] Temperature Oral (F) 2019-07-01 13:09:00 97.6 F [facility] Heart Rate 2019-07-01 13:09:00 [facility] Systolic (mm Hg) 2019-07-01 13:09:00 [facility] Diastolic (mm Hg) 2019-07-01 13:09:00 [facility] Temperature Oral (F) 2019-07-01 04:55:00 100 F [facility] Heart Rate 2019-07-01 04:55:00 [facility] Respitory Rate 2019-07-01 04:55:00 [facility] Systolic (mm Hg) 2019-07-01 04:55:00 [facility] Diastolic (mm Hg) 2019-07-01 04:55:00 [facility] Respitory Rate 2019-06-30 08:00:00 [facility] Respitory Rate 2019-06-30 05:18:00 [facility] Height 2019-06-29 23:34:00 172.72 cm [facility] Height 2019-06-29 22:30:00 172.72 cm [facility] Height 2019-06-28 04:23:00 172.72 cm [facility] Weight 2019-06-28 04:23:00 [facility] BMI Calculated 2019-06-28 04:23:00 [facility] Weight 2019-06-27 19:21:00 [facility] Temperature Oral (F) 2018-11-07 18:30:00 97.2 F [facility] Heart Rate 2018-11-07 18:30:00 [facility] Systolic (mm Hg) 2018-11-07 18:30:00 [facility] Diastolic (mm Hg) 2018-11-07 18:30:00 [facility] Respitory Rate 2018-11-07 18:30:00 [facility] Heart Rate 2018-11-07 12:28:00 [facility] Temperature Oral (F) 2018-11-07 12:28:00 97.5 F [facility] Systolic (mm Hg) 2018-11-07 12:28:00 [facility] Diastolic (mm Hg) 2018-11-07 12:28:00 [facility] Respitory Rate 2018-11-07 12:28:00 [facility] Systolic (mm Hg) 2018-11-07 09:24:00 [facility] Diastolic (mm Hg) 2018-11-07 09:24:00 [facility] Respitory Rate 2018-11-07 09:24:00 [facility] Temperature Oral (F) 2018-11-07 09:24:00 98.3 F [facility] BMI Calculated 2018-11-06 18:50:00 [facility] Weight 2018-11-06 18:50:00 [facility] Heart Rate 2018-11-06 18:15:00 [facility] Height 2018-11-02 16:20:00 175.26 cm [facility] Respitory Rate 2016-06-15 21:17:00 [facility] Systolic (mm Hg) 2016-06-15 21:17:00 [facility] Diastolic (mm Hg) 2016-06-15 21:17:00 [facility] Respitory Rate 2016-06-15 21:12:00 [facility] Systolic (mm Hg) 2016-06-15 21:12:00 [facility] Diastolic (mm Hg) 2016-06-15 21:12:00 [facility] Respitory Rate 2016-06-15 20:55:00 [facility] Systolic (mm Hg) 2016-06-15 20:55:00 [facility] Diastolic (mm Hg) 2016-06-15 20:55:00 [facility] Temperature Oral (F) 2016-06-14 17:25:00 98.9 F [facility] Heart Rate 2016-06-14 17:25:00 [facility] Height 2016-06-14 17:23:00 172.72 cm [facility] BMI Calculated 2016-06-14 17:23:00 [facility] Weight 2016-06-14 17:23:00 [facility] Procedures Procedure Date / Time Performed Performing Clinician Sour e Computed tomography of chest with contrast 2019-09-19 00:00:00 MARK ANTHONY FRIEDMAN [facility] BLOOD TRANSFUSION SERVICE 2019-09-19 00:00:00 ILAN STEIN CH, I [facility] INSPECTION OF NASAL MUCOSA AND SOFT TISSUE, ENDO 2019-07-12 00:00:00 GRACIA, AKILAH [facility] Computed tomography of chest with contrast 2019-07-11 00:00:00 H MARK ANTHONY LINARES [facility] Computed tomography of soft tissues of neck with contrast 20 07-07-23 00:00:00 MARK ANTHONY KERNS [facility] TRANSFUSE NONAUT PLATELETS IN PERIPH VEIN, OPEN 2019-07-11 0 0:00:00 NAYANAMARY JANE STEELE [facility] US abdomen complete 2019-05-09 00:00:00 MARK ANTHONY KERNS [facility] Hip joint operations [facility], [facility] Chaudhary, [facility] Hip replacement<sup>1</sup> [facility], [facility] Chaudhary, [facility] Hysterectomy [facility], [facility] Chaudhary, [facility] PEG - Percutaneous endoscopic gastrostomy [facility], [facility] Chaudhary Tracheostomy [facility], [facility] Chaudhary Encounters Start Date/Time End Date/Time Encounter Type Admission Type Attendi [facility] Care Department Encounter ID Source 2019-11-19 14:43:00 2019-11-19 19:44:00 Departed Emergency Room 1 CAITLYN [facility] [id number] [facility] 2019-09-25 10:49:00 2019-09-25 17:49:00 Departed Emergency Room 1 DONOVAN MENJIVAR [facility] [id number] [facility] 2019-09-19 07:03:00 2019-09-21 15:48:00 Discharged Inpatient (obs) 1 ILAN STEIN [facility] [id number] [facility] 2019-07-10 22:26:00 2019-07-13 13:30:00 Discharged Inpatient 1 ILAN STEIN [facility] [id number] [facility] 2019-06-27 19:12:55 2019-07-01 19:10:00 Inpatient [facility] [id number] [facility] 2019-06-27 14:12:55 2019-07-01 14:10:00 Outpatient Brenda Silva [facility] [id number] 2019-06-27 15:49:00 2019-06-27 14:12:00 Inpatient E [facility] [id number] [facility] 2019-06-14 17:40:00 2019-06-14 19:54:00 Departed Emergency Room 1 NATHAN CANNON [facility] [id number] [facility] 2019-05-09 09:21:00 2019-05-10 17:09:00 Discharged Inpatient 1 ILAN STEIN [facility] [id number] [facility] 2018-11-16 12:34:00 2018-11-16 21:40:00 Departed Emergency Room 1 WILIAM MARTINEZ [facility] [id number] [facility] 2018-11-07 00:20:00 2018-11-07 20:45:00 Observation [facility] [id number] [facility] 2018-11-06 18:20:00 2018-11-07 14:45:00 Outpatient Sally Neff [facility] [id number] 2018-11-06 18:20:00 2018-11-06 18:20:00 Outpatient [facility] 7501 [facility] 2018-08-12 06:34:00 2018-08-16 18:50:00 Discharged Inpatient 1 ILAN STEIN [facility] [id number] [facility] 2018-08-11 21:37:00 2018-08-12 05:59:00 Outpt Diag Services [facility] Outpatient [facility] [id number] [facility] 2018-08-11 15:37:00 2018-08-11 23:59:[address] [facility] [id number] 2018-07-31 00:26:00 2018-08-04 19:30:00 Discharged Inpatient 1 ILAN STEIN [facility] [id number] [facility] 2018-06-21 15:33:00 2018-06-28 20:15:00 Discharged Inpatient 1 ILAN STEIN [facility] [id number] [facility] 2018-06-01 14:13:00 2018-06-06 18:21:00 Discharged Inpatient 1 ILAN STEIN [facility] [id number] [facility] 2018-05-14 06:09:00 2018-05-14 09:35:00 Departed Emergency Room 1 JENN MILLER [facility] [id number] [facility] 2018-04-14 11:59:00 2018-04-17 16:41:00 Discharged Inpatient 1 SHABBIR MÉNDEZ [facility] [id number] [facility] 2018-04-07 13:14:00 2018-04-07 18:25:00 Departed Emergency Room [facility] [id number] [facility] 2018-03-25 23:55:00 2018-03-26 21:45:00 Discharged Inpatient 1 PHOENIX CIFUENTES [facility] [id number] [facility] 2018-02-26 13:34:00 2018-03-09 13:35:00 Discharged Inpatient 1 ILAN STEIN [facility] [id number] [facility] 2018-02-10 18:18:00 2018-02-11 00:37:00 Departed Emergency Room 1 NATHANIEL SANTACRUZ [facility] [id number] [facility] 2018-01-06 18:52:00 2018-01-20 23:53:00 Discharged Inpatient ER ILAN STEIN [facility] [id number] [facility] 2017-10-25 03:00:00 2017-10-25 03:00:00 Registered Referred [facility] [id number] [facility] 2017-10-14 02:59:00 2017-10-14 02:59:00 Registered Referred [facility] [id number] [facility] 2017-10-10 02:58:00 2017-10-10 02:58:00 Registered Referred [facility] [id number] [facility] 2016-06-15 17:27:00 2016-06-15 21:15:00 Bedded Outpatient [facility] [id number] [facility] 2016-06-15 12:27:00 2016-06-15 16:15:00 Outpatient Ngozi Hoffman [facility] [id number] Results Test Description Test Time Test Comments Results Result Comments Source Arterial Blood pH 2019-11-19 16:55:00 Test Item Arterial Blood pH (test code = 2744-1) 7.44 7.31-7.41 [facility] Blood Partial Pressure CO2 2019-11-19 16:55:00* Test Item Value Reference Range Interpretation Comments Arterial Blood Partial Pressure CO2 (test code = 2019-8) 40 41-51 [facility] ClubArterial Blood Partial Pressure O2 2019-11-19 16:55:00* Test Item Value Reference Range Interpretation Comments Arterial Blood Partial Pressure O2 (test code = 2019-8) 128 80-105 [facility] ClubArterial Blood [id number] 16:55:00* Test Item Value Reference Range Interpretation Comments Arterial Blood HCO3 (test code = 1960-4) 27 23-28 [facility] ClubArterial Blood Base Melylt5025-48-65 16:55:00* Test Item Value Reference Range Interpretation Comments Arterial Blood Base Excess (test code = 1925-7) 3.0 -2-3 [facility] ClubArterial Blood Oxygen Saturation 2019-11-19 16:55:00* Test Item Value Reference Range Interpretation Comments Arterial Blood Oxygen Saturation (test code = 2708-6) 99.0 95-98 [facility] ClubFiO22020-03-02 16:55:00* Test Item Value Reference Range Interpretation Comments FiO2 (test code = FiO2) 40 [facility] ClubCreatine Kinase [id number] 16:48:00* Test Item Value Reference Range Interpretation Comments Creatine Kinase MB (test code = 69138-4) 1.10 0-5.0 [facility] ClubTroponin P5738-51-81 16:48:00* Test Item Value Reference Range Interpretation Comments Troponin I (test code = WWT8289) 0.002 0-0.300 [facility] Izyaz4309-67-70 16:45:00* Test Item Value Reference Range Interpretation Comments Sodium Level (test code = 2951-2) 141 136-145 [facility] ClubPotassium Wvjkx0927-45-28 16:45:00* Test Item Value Reference Range Interpretation Comments Potassium Level (test code = 2823-3) 4.5 3.5-5.1 [facility] ClubChloride Zqohp7823-16-64 16:45:00* Test Item Value Reference Range Interpretation Comments Chloride Level (test code = 2075-0) 105 98-107 [facility] Trophy ClubCarbon Dioxide Mvjkx5509-89-29 16:45:00* Test Item Value Reference Range Interpretation Comments Carbon Dioxide Level (test code = 2028-9) 28 22-29 [facility] Trophy ClubAnion Urz3913-35-37 16:45:00* Test Item Value Reference Range Interpretation Comments Anion Gap (test code = 80749-1) 12.5 8-16 [facility] ClubBlood Urea Xbixtzpy0631-27-94 16:45:00* Test Item Value Reference Range Interpretation Comments Blood Urea Nitrogen (test code = 3094-0) 14 7-26 [facility] ClubCreatinine2020-03-02 16:45:00* Test Item Value Reference Range Interpretation Comments Creatinine (test code = 2160-0) 0.82 0.57-1.11 [facility] ClubBUN/Creatinine Ymtuw8202-26-95 16:45:00* Test Item Value Reference Range Interpretation Comments BUN/Creatinine Ratio (test code = 3097-3) 17 6-25 [facility] Trophy ClubEstimat Glomerular Filtration Rate 2019-11-19 16:45:00* Test Item Value Reference Range Interpretation Comments Estimat Glomerular Filtration Rate (test code = 643949915) > 60 >60 Ranges were taken from the National Kidney Disease Education Program and the [facility] [employer] literature.Reference ranges:60 or greater: Mmiqse87-75 ( for 3 consecutive months): Chronic kidney disease 15 or less: Kidney failureBaylor Scott & White Medical Center – Trophy ClubGlucose Hgqxs8352-61-59 16:45:00* Test Item Value Reference Range Interpretation Comments Glucose Level (test code = KFE2917) 93 74-118 [facility] ClubCalcium Jqknv0438-02-05 16:45:00* Test Item Value Reference Range Interpretation Comments Calcium Level (test code = 20284-3) 10.4 8.4-10.2 [facility] Trophy ClubTotal Zyxetkrmm8967-70-96 16:45:00* Test Item Value Reference Range Interpretation Comments Total Bilirubin (test code = 1975-2) 0.4 0.2-1.2 [facility] Trophy ClubAspartate Amino Transf (AST/SGOT) 2019-11-19 16:45:00* Test Item Value Reference Range Interpretation Comments Aspartate Amino Transf (AST/SGOT) (test code = Aspartate Amino Transf (AST/SGOT)) 17 5-34 [facility] ClubAlanine Aminotransferase (ALT/SGPT) 2019-11-19 16:45:00* Test Item Value Reference Range Interpretation Comments Alanine Aminotransferase (ALT/SGPT) (test code = 1742-6) 13 0-55 [facility] Trophy ClubTotal Inzxfpl2699-63-66 16:45:00* Test Item Value Reference Range Interpretation Comments Total Protein (test code = 2885-2) 7.4 6.5-8.1 [facility] ClubAlbumin2020-03-02 16:45:00* Test Item Value Reference Range Interpretation Comments Albumin (test code = 1751-7) 4.1 3.5-5.0 [facility] ClubGlobulin2020-03-02 16:45:00* Test Item Value Reference Range Interpretation Comments Globulin (test code = 69738-5) 3.3 2.3-3.5 [facility] ClubAlbumin/Globulin Ljuky1127-70-72 16:45:00 * Test Item Value Reference Range Interpretation Comments Albumin/Globulin Ratio (test code = 1759-0) 1.2 0.8-2.0 [facility] ClubAlkaline Ngpbbyhqddt6082-58-23 16:45:00* Test Item Value Reference Range Interpretation Comments Alkaline Phosphatase (test code = 6768-6) 115 40-150 [facility] ClubCreatine Fabdqf8875-81-92 16:45:00* Test Item Value Reference Range Interpretation Comments Creatine Kinase (test code = 2157-6) 38 29-168 [facility] ClubLactic Acid Yvdrd0025-66-82 16:38:00* Test Item Value Reference Range Interpretation Comments Lactic Acid Level (test code = Lactic Acid Level) 0.7 0.5- 2.0 [facility] ClubWhite Blood Qbdrg8255-98-36 16:29:00* Test Item Value Reference Range Interpretation Comments White Blood Count (test code = 6690-2) 6.40 4.8-10.8 [facility] ClubRed Blood Ucdgb3564-22-18 16:29:00* Test Item Value Reference Range Interpretation Comments Red Blood Count (test code = 789-8) 4.22 3.6-5.1 [facility] ClubHemoglobin2020-03-02 16:29:00* Test Item Value Reference Range Interpretation Comments Hemoglobin (test code = 63373-9) 12.2 12.0-16.0 [facility] ClubHematocrit2020-03-02 16:29:00* Test Item Value Reference Range Interpretation Comments Hematocrit (test code = 4544-3) 38.3 34.2-44.1 [facility] Trophy ClubMean Corpuscular Qfiddn0108-28-48 16:29:00* Test Item Value Reference Range Interpretation Comments Mean Corpuscular Volume (test code = 787-2) 90.8 81-99 [facility] Trophy ClubMean Corpuscular Ycxklkjyhm6617-57-71 16:29:00* Test Item Value Reference Range Interpretation Comments Mean Corpuscular Hemoglobin (test code = 785-6) 28.9 28-32 [facility] Trophy ClubMean Corpuscular Hemoglobin Concent 2019-11-19 16:29:00* Test Item Value Reference Range Interpretation Comments Mean Corpuscular Hemoglobin Concent (test code = 786-4) 31.9 31-35 [facility] ClubRed Cell Distribution Kvedt2474-32-19 16:29:00* Test Item Value Reference Range Interpretation Comments Red Cell Distribution Width (test code = 66850-1) 12.8 11.7 -14.4 [facility] Trophy ClubPlatelet Wkxsj6918-00-41 16:29:00* Test Item Value Reference Range Interpretation Comments Platelet Count (test code = 777-3) 62 140-360 NO CLOT DETECTED [facility] Trophy ClubNeutrophils (%) (Auto) 2019-11-19 16:29:00* Test Item Value Reference Range Interpretation Comments Neutrophils (%) (Auto) (test code = 79319-3) 69.1 38.7-80.0 [facility] ClubLymphocytes (%) (Auto)2019-11-19 16:29:00 * Test Item Value Reference Range Interpretation Comments Lymphocytes (%) (Auto) (test code = 736-9) 21.1 18.0-39.1 [facility] ClubMonocytes (%) (Auto)2019-11-19 16:29:00* Test Item Value Reference Range Interpretation Comments Monocytes (%) (Auto) (test code = 5905-5) 5.6 4.4-11.3 [facility] ClubEosinophils (%) (Auto)2019-11-19 16:29:00 * Test Item Value Reference Range Interpretation Comments Eosinophils (%) (Auto) (test code = 713-8) 3.6 0.0-6.0 [facility] ClubBasophils (%) (Auto)2019-11-19 16:29:00* Test Item Value Reference Range Interpretation Comments Basophils (%) (Auto) (test code = 706-2) 0.3 0.0-1.0 [facility] Trophy ClubIM GRANULOCYTES %2019-11-19 16:29:00* Test Item Value Reference Range Interpretation Comments IM GRANULOCYTES % (test code = IM GRANULOCYTES %) 0.3 0.0- 1.0 [facility] ClubNeutrophils # (Auto)2019-11-19 16:29:00* Test Item Value Reference Range Interpretation Comments Neutrophils # (Auto) (test code = 751-8) 4.4 2.1-6.9 [facility] ClubLymphocytes # (Auto)2019-11-19 16:29:00* Test Item Value Reference Range Interpretation Comments Lymphocytes # (Auto) (test code = 15285-5) 1.4 1.0-3.2 [facility] ClubMonocytes # (Auto)2019-11-19 16:29:00* Test Item Value Reference Range Interpretation Comments Monocytes # (Auto) (test code = 742-7) 0.4 0.2-0.8 [facility] ClubEosinophils # (Auto)2019-11-19 16:29:00* Test Item Value Reference Range Interpretation Comments Eosinophils # (Auto) (test code = 711-2) 0.2 0.0-0.4 [facility] ClubBasophils # (Auto)2019-11-19 16:29:00* Test Item Value Reference Range Interpretation Comments Basophils # (Auto) (test code = 704-7) 0.0 0.0-0.1 [facility] Trophy ClubAbsolute Immature Granulocyte (auto 2019-11-19 16:29:00* Test Item Value Reference Range Interpretation Comments Absolute Immature Granulocyte (auto (melina t code = Absolute Immature Granulocyte (auto) 0.02 0-0.1 [facility] ClubCHEST SINGLE (PORTABLE)2019-11-19 15:49:00 [place] [address] Patient Name: MOJGAN CUMMINGS MR #: [id number] : 1950 Age/Sex: 69/F Req #: [id number] Adm Physician: Ordered by: CAITLYN ROMERO DO Report #: [id number] Location: ER Room/Bed: Procedure: [id number] DX/CH EST SINGLE (PORTABLE) Exam Date: Exam Time: REPORT STATUS: Signed Chest, portable AP view History: Respiratory distress Comparison: 09/25/2019 IMPRES LILIYA: The heart is within normal limits size. The tracheostomy cannula is m idline. There is no focal consolidation, sizable pleural effusion, or pneumoth orax. Degenerative changes of the bilateral shoulders are noted. No acute osse ous abnormalities. Signed by: Luis A Monsalve MD on 11/19/2019 3:50 PM Dictated By: LUIS A MONSALVE MD 49 Transcribed By: BAMBI on 11/19/191549 COPY TO: CAITLYN ROMERO DO B-TYPE NATRIURETIC CKGYERS9928-96-98 08:12:00* Test Item Value Reference Range Interpretation Comments B-TYPE NATRIURETIC PEPTIDE (test code = BNP) 59.8 pgram/mL 0-100 N BASIC METABOLIC WLCLI9930-28-80 07:26:00* Test Item Value Reference Range Interpretation Comments SODIUM (test code = NA) 143 mmol/L 136-145 N POTASSIUM (test code = K) 3.6 mmol/L 3.5-5.1 N CHLORIDE (test code = CL) 109.0 mmol/L 98-107 H CARBON DIOXIDE (test code = CO2) 29.0 mmol/L 21-32 N ANION GAP (test code = GAP) 8.6 10-20 L GLUCOSE (test code = GLU) 86 mg/dL 74-106 N BLOOD UREA NITROGEN (test code = BUN) 11 mg/dL 7-18 N GLOMERULAR FILTRATION RATE (test code = GFR) > 60 mL/min >=60 Estimated GFR by using Modified MDRD formula.Chronic kidney disease is defined as either kidney damageor GFR <60 mL/min/1.73 m2 for >3 months. CREATININE (test code = CREAT) 0.60 mg/dL 0.55-1.02 N Note change in reference range due to change in reagent. BUN/CREATININE RATIO (test code = BUN/CREA) 18.3 10-20 N CALCIUM (test code = CA) 10.2 mg/dL 8.5-10.1 H [id number]-[id number] 07:26:00* Test Item Value Reference Range Interpretation Comments TROPONIN-I (test code = TROPI) <0.015 ng/mL 0-0.045 N CBC W/O [id number] 07:18:00* Test Item Value Reference Range Interpretation Comments WHITE BLOOD CELL (test code = WBC) 6.0 K/mm3 4.5-12.5 N RED BLOOD CELL (test code = RBC) 3.43 mill/mm3 3.7-5.2 L HEMOGLOBIN (test code = HGB) 9.8 gram/dL 11.5-15.5 L HEMATOCRIT (test code = HCT) 30.9 % 36.0-46.0 L MEAN CELL VOLUME (test code = MCV) 90.1 fL 80-98 N MEAN CELL HGB (test code = MCH) 28.6 picogram 27.0-33.0 N MEAN CELL HGB CONCETRATION (test code = MCHC) 31.7 gram/dL 33.0-36. 0 L RED CELL DISTRIBUTION WIDTH (test code = RDW) 12.5 % 11.6-16. 2 N PLATELET COUNT (test code = PLT) 28 K/mm3 150-450 LL Results called to [id number] by AUDREY 10/12/19 0718Critical results verified and read back by Nurse? Y MEAN PLATELET VOLUME (test code = MPV) TEST NOT PERFORMED fL 6.7-11 .0 BASIC METABOLIC GHYUQ8439-30-69 07:16:00* Test Item Value Reference Range Interpretation Comments SODIUM (test code = NA) 143 mmol/L 136-145 N POTASSIUM (test code = K) 3.6 mmol/L 3.5-5.1 N CHLORIDE (test code = CL) 109.0 mmol/L 98-107 H CARBON DIOXIDE (test code = CO2) mmol/L 21-32 ANION GAP (test code = GAP) 10-20 GLUCOSE (test code = GLU) mg/dL 74-106 BLOOD UREA NITROGEN (test code = BUN) mg/dL 7-18 GLOMERULAR FILTRATION RATE (test code = GFR) mL/min >=60 CREATININE (test code = CREAT) mg/dL 0.55-1.02 BUN/CREATININE RATIO (test code = BUN/CREA) 10-20 CALCIUM (test code = CA) mg/dL 8.5-10.1 VBTSXJZP-[id number] 07:16:00* Test Item Value Reference Range Interpretation Comments TROPONIN-I (test code = TROPI) ng/mL 0-0.045 - XR CHEST 1 [id number] 07:05:00 FAX: Esau Weaver DO [place]: B St: REG Name: Faith LOWEMOJGAN MOLINA [facility] : [birth year] Age/S: 69/F [address] [facility] Unit #: [id number] Loc: [place] [address] Phys: Esau Weaver DO Acct: [id number] Dis Date: Status: REG ER PHONE #: [phone] Exam Date: 10/12/2019526 FAX #: [phone] Reason: Shortness of Breath EXAMS: CPT CODE: [id number] XR CHEST 1 V 83157 HISTORY: Shortness of breath. COMPARISON: August 16, 2019. Location: TH. No acute infiltrates, effusion or congestion is noted. Tracheostomy tu be is unchanged. Mild cardiomegaly DJD of both shoulder joints.. IMPRESSION: No acute infiltrates, effusion or congestion. at 0705 Reported and signed by: Clem Grissom M.D. CC: Esau Weaver DO Technolog ist: OCTAVIO VASQUEZ JR Trnscrd Date/Time/By : 10/12/2019 (704) : By: [email or web address] Orig Print D/T: S: 10/12/2019 (070 8) PAGE 1 Signed Report Platelet [id number] 19:33:00* Test Item Value Reference Range Interpretation Comments Platelet Estimate (test code = 79718-7) ADEQUATE [facility] Trophy ClubPlatelet Morphology Pmagfbh8001-13-80 19:33:00* Test Item Value Reference Range Interpretation Comments Platelet Morphology Comment (test code = 41823-3) FEW GIANT [facility] ClubHypochromasia2020-01-07 19:33:00* Test Item Value Reference Range Interpretation Comments Hypochromasia (test code = 728-6) SLIGHT [facility] ClubRed Cell Morphology Wtiskew1110-22-65 19:33:00* Test Item Value Reference Range Interpretation Comments Red Cell Morphology Comment (test code = 6742-1) NORMAL [facility] Trophy ClubB-Type Natriuretic Tmneezo1472-61-24 13:04:00* Test Item Value Reference Range Interpretation Comments B-Type Natriuretic Peptide (test code = 84274-9) 54.1 0-100 [facility] ClubCHEST SINGLE (PORTABLE)2019-09-25 12:52:00 [place] [address] Patient Name: MOJGAN CUMMINGS MR #: [id number] : 1950 Age/Sex: 69/F Req #: [id number] Adm Physician: Ordered by: DONOVAN MENJIVAR MD Report #: [id number] Location: Room/Bed: Procedure: [id number] DX/CH EST SINGLE (PORTABLE) Exam Date: 09/25/19 Exam Time: 1141 REPORT STATUS: Signed EXAM : CHEST SINGLE (PORTABLE) DATE: 09/25/2019 11:20 AM INDICATION: Cough COMPARISON: 09/19/2019 FINDINGS: The tracheostomy cannula identifie d in stable position. The trachea is midline. There are mildly increased pa tchy opacities present within the right mid and lower lung zone. There is no e vidence for large focal consolidation, pneumothorax, or significant pleural ef fusion. The cardiomediastinal silhouette is stable in appearance. Degenerat brooklynn changes noted of the visualized spine and shoulders. No acute osseous abno rmality is identified. IMPRESSION: Patchy opacities present withi n the right mid and lower lung zones which likely correspond to the consolidat brooklynn opacities noted on the recent prior CT chest examination. Signed by: Dr. Herman Rodgers MD on 09/25/2019 12:54 PM Dictated By: HERMAN RODGERS MD E lectronically Signed By: HERMAN RODGERS MD on 09/25/19 1254 Transcribed By: YASHIRA NUGENT on 09/25/19 1254 COPY TO: DONOVAN MENJIVAR MD Iifumd3102-24-52 01:59:00* Test Item Value Reference Range Interpretation Comments Folate (test code = 2284-8) 18.4 >3.0 A serum folate concentration of less than 3.1 ng/mL isconsidered to represent cl inical deficiency.Performed at: - [facility] [id number] Director: Rashawn Green MD, Phone: [phone] Scott & [facility] Trophy ClubVitamin B12 Tvqim9039-51-41 12:13:00* Test Item Value Reference Range Interpretation Comments Vitamin B12 Level (test code = 52765-8) 329 213-816 [facility] Trophy ClubBedside Tvclnsh0478-65-51 11:30:00* Test Item Value Reference Range Interpretation Comments Bedside Glucose (test code = 80541-8) 134 70-120 Meter ID: [id number] [facility] HospitalFerritin2020-01-03 11:16:00* Test Item Value Reference Range Interpretation Comments Ferritin (test code = 2276-4) 776.53 4.63-204.00 [facility] HospitalMODIFIED BA. FGZPKLX7037-15-66 10:40:00 [facility] [address] [place] [address] Patient Name: MOJGAN CUMMINGS MR #: [id number] : [birth year] Age/Sex: 69/F Req #: [id number] Adm Physician: ILAN STEIN MD Ordered by: KEI BUNDY NP Report #: [id number] [facility] Room/Bed: [facility] Procedure: [id number] DX/ MODIFIED BA. SWALLOW Exam Date: 09/21/19 Exam Time: 0845 REPORT STATUS: Signed PROCE DURE: X-RAY MODIFIED BARIUM SWALLOW COMPARISON: None. INDICATION: Asp iration Radiation Details: Fluoroscopy time: 1.1 minutes Cumulative dos e: 2.1 mGy DISCUSSION: Fluoroscopic examination was performed in conjunctio n with speech pathology during swallowing a variety of thin and thick liquid c onsistencies. Provided images demonstrate no laryngeal penetration or aspirati on. CONCLUSION: Modified barium swallow demonstrating no laryngeal pene tration or aspiration. Please refer to the speech pathology report for further details. Signed by: Patti Laughlin MD on 09/21/2019 10:41 AM Dictated By : PATTI LAUGHLIN MD 1041 Trans cribed By: BAMBI on 09/21/19 1041 COPY TO: DENISE,KEI W PRODUCTION CLERK Magnesium Zegge8972-10-28 06:38:00* Test Item Value Reference Range Interpretation Comments Magnesium Level (test code = 74242-1) 1.8 1.3-2.1 [facility] Trophy ClubLarge Wmbcrufyh6380-81-07 11:23:00* Test Item Value Reference Range Interpretation Comments Large Platelets (test code = 5908-9) RARE [facility] Trophy ClubPhosphorus Rnxmj7971-36-39 05:57:00* Test Item Value Reference Range Interpretation Comments Phosphorus Level (test code = ISL3226) 3.2 2.3-4.7 [facility] [id number] 10:15:00 [facility] [address] [address] Patient Name: MOJGAN CUMMINGS MR #: [id number] : 1950 Age/Sex: 69/F Req #: [id number] Adm Physician: ILAN STEIN MD Ordered by: MARK ANTHONY KERNS MD Report #: [id number] Location: MED/SURG3 Room/Bed: [facility] Procedure: [id number] CT/CT CHEST W Exam Date: 09/19/19 Exam Time: 0950 REPORT STATUS: Signed EXAMINATION: CT s can of the chest with contrast. TECHNIQUE: Helical CT images of the chest were performed from the lung apices to the level of the adrenal glands after t he intravenous administration of 100 cc of Isovue 300. Coronal and sagittal r eformatted images were obtained.Dose modulation, iterative reconstruction, and /or weight based adjustment of the mA/kV was utilized to reduce the radiation dose to as low as reasonably achievable. COMPARISON: None. CLINICAL HISTORY:Hemoptysis approximately depending DISCUSSION: LINES/TUBES: Tracheostomy tube LUNGS AND AIRWAYS: Right middle lobe groundglass opaciti es right lower lobe airspace and groundglass opacities. Atelectasis in the kayy ng bases. Mild bronchiectasis in the lower lungs. No central pulmonary embolis m. PLEURA: No pneumothorax or pleural effusions. HEART AND MEDIASTIN UM: The thyroid gland is normal. The heart and pericardium are within normal limits. LYMPH NODES: There is no mediastinal, hilar or axillary lymphadeno dena. ABDOMEN: Limited contrast-enhanced views of the upper abdomen show n o abnormality within the visualized liver, spleen, pancreas, or kidneys. The adrenal glands are normal. BONES AND SOFT TISSUES: Multilevel degenerative disc disease IMPRESSION: Right middle and lower lobe pneumonia/aspir ation. Dependent bronchiectasis likely sequela of chronic aspiration. Signed by: Dr. Shantelle Jha M.D. on 09/19/2019 10:24 AM Dictated By: MELO JHA MD 1024 Transcribed By: BAMBI on 09/19/19 1024 COPY TO: MARK ANTHONY KERNS MD Nucleated Red Blood [id number] 08:44:00* Test Item Value Reference Range Interpretation Comments Nucleated Red Blood Cells (test code = 20862-7) NO EDTA PLT [facility] 07:45:00 [facility] [address] [place] [address] Patient Name: MOJGAN CUMMINGS MR #: [id number] : 1950 Age/Sex: 69/F Req #: [id number] Adm Physician: ILAN STEIN MD Ordered by: CAITLYN ROMERO DO Report #: [id number] Location: MED/SURG3 Room/Bed: [facility] Procedure: [id number] DX/C HEST SINGLE (PORTABLE) Exam Date: 09/19/19 Exam Time : 0700 REPORT STATUS: Signed ADDENDUM #1 Addendum impression: Tracheostomy tube, not e ndotracheal tube. Signed by: Dr. Shantelle Jha M.D. on 09/19/2019 10:22 AM ORIGINAL REPORT Examination: Single AP view of the ches t. COMPARISON: None. INDICATION: Hemoptysis DISCUSSION: Lines/tubes: Endotracheal tube 4 cm from the inferior marlyn. Lungs: The lungs are relatively clear. Stable nodule in the right lower lung. Pleura: No pleural effusion or pneumothorax. Heart and mediastinum: The heart an d the mediastinum are unremarkable. Bones and soft tissues: No acute bony abnormalities. IMPRESSION: 1. No acute cardiopulmonary abnorma lities. Endotracheal tube as above. Signed by: Dr. Shantelle Jha M.D. on 09/19/2019 7:46 AM Dictated By: SHANTELLE JHA MD 1022 Transcribed By: BAMBI on 09/19/19 07 46 COPY TO: CAITLYN ROMERO DO Prothrombin [id number] 07:43:00 * Test Item Value Reference Range Interpretation Comments Prothrombin Time (test code = 5902-2) 13.0 11.9-14.5 [facility] International Ratio 2019-09-19 07:43:00* Test Item Value Reference Range Interpretation Comments Prothromb Time International Ratio (test code = 6301-6) 0.93 Oral Anticoagulant Therapy INR Values:1. Low Intensity Therapy 1.5 - 2.02 . Moderate Intensity Therapy 2.0 - 3.03. High Intensity Therapy(1) 2.5 - 3. 54. High Intensity Therapy(2) 3.0 - 4.05. Panic Value INR > 5.0 [facility] Partial Thromboplast Time 2019-09-19 07:43:00* Test Item Value Reference Range Interpretation Comments Activated Partial Thromboplast Time (test code = 88509-5) 26.9 23.8-35.5 [facility] 17:36:00* Test Item Value Reference Range Interpretation Comments GLUBED (test code = GLUBED) 101 mg/dL 74-106 N Performed by certified pulping machine operator at [facility] [id number] 12:29:00* Test Item Value Reference Range Interpretation Comments GLUBED (test code = GLUBED) 93 mg/dL 74-106 N Performed by certified pulping machine operator at [facility] [id number] 07:03:00* Test Item Value Reference Range Interpretation Comments VANCOMYCIN (test code = VANCO) 19.7 UG/ML 5.0-45.0 N BASIC METABOLIC [id number] 07:02:00* Test Item Value Reference Range Interpretation Comments SODIUM (test code = NA) 144 mmol/L 136-145 N POTASSIUM (test code = K) 3.9 mmol/L 3.5-5.1 N CHLORIDE (test code = CL) 111.0 mmol/L 98-107 H CARBON DIOXIDE (test code = CO2) 27.0 mmol/L 21-32 N ANION GAP (test code = GAP) 9.9 10-20 L GLUCOSE (test code = GLU) 84 mg/dL 74-106 N BLOOD UREA NITROGEN (test code = BUN) 11 mg/dL 7-18 N GLOMERULAR FILTRATION RATE (test code = GFR) > 60 mL/min >=60 Estimated GFR by using Modified MDRD formula.Chronic kidney disease is defined as either kidney damageor GFR <60 mL/min/1.73 m2 for >3 months. CREATININE (test code = CREAT) 0.50 mg/dL 0.55-1.02 L Note change in reference range due to change in reagent. BUN/CREATININE RATIO (test code = BUN/CREA) 20.6 10-20 H CALCIUM (test code = CA) 8.9 mg/dL 8.5-10.1 N CBC W/AUTO [id number] 07:00:00* Test Item Value Reference Range Interpretation Comments WHITE BLOOD CELL (test code = WBC) 5.4 K/mm3 4.5-12.5 N RED BLOOD CELL (test code = RBC) 2.99 mill/mm3 3.7-5.2 L HEMOGLOBIN (test code = HGB) 8.7 gram/dL 11.5-15.5 L HEMATOCRIT (test code = HCT) 28.0 % 36.0-46.0 L MEAN CELL VOLUME (test code = MCV) 93.6 fL 80-98 N MEAN CELL HGB (test code = MCH) 29.1 picogram 27.0-33.0 N MEAN CELL HGB CONCETRATION (test code = MCHC) 31.1 gram/dL 33.0-36. 0 L RED CELL DISTRIBUTION WIDTH (test code = RDW) 12.3 % 11.6-16. 2 N RED CELL DISTRIBUTION WIDTH SD (test code = RDW-SD) 41.7 fL 37 .0-51.0 N PLATELET COUNT (test code = PLT) 67 K/mm3 150-450 L MEAN PLATELET VOLUME (test code = MPV) 14.3 fL 6.7-11.0 H NEUTROPHIL % (test code = NT%) 66.7 % 39.0-69.0 N IMMATURE GRANULOCYTE % (test code = IG%) 1.3 % 0.0-5.0 N LYMPHOCYTE % (test code = LY%) 21.3 % 25.0-55.0 L MONOCYTE % (test code = MO%) 7.0 % 0.0-10.0 N EOSINOPHIL % (test code = EO%) 3.5 % 0.0-5.0 N BASOPHIL % (test code = BA%) 0.2 % 0.0-1.0 N NUCLEATED RBC % (test code = NRBC%) 0.0 % 0-0 N NEUTROPHIL # (test code = NT#) 3.61 K/mm3 1.8-7.7 N IMMATURE GRANULOCYTE # (test code = IG#) 0.07 x10 3/uL 0-0.03 H LYMPHOCYTE # (test code = LY#) 1.15 K/mm3 1.0-5.0 N MONOCYTE # (test code = MO#) 0.38 K/mm3 0-0.8 N EOSINOPHIL # (test code = EO#) 0.19 K/mm3 0.0-0.5 N BASOPHIL # (test code = BA#) 0.01 K/mm3 0.0-0.2 N NUCLEATED RBC # (test code = NRBC#) 0.00 K/mm3 0.0-0.1 N MANUAL DIFF REQUIRED (test code = MDIFF) NO [id number] 06:21:00* Test Item Value Reference Range Interpretation Comments GLUBED (test code = GLUBED) 81 mg/dL 74-106 N Performed by certified pulping machine operator at [facility] [id number] 20:36:00* Test Item Value Reference Range Interpretation Comments GLUBED (test code = GLUBED) 103 mg/dL 74-106 N Performed by certified pulping machine operator at [facility] [id number] 17:37:00* Test Item Value Reference Range Interpretation Comments GLUBED (test code = GLUBED) 101 mg/dL 74-106 N Performed by certified pulping machine operator at [facility] [id number] 17:37:00* Test Item Value Reference Range Interpretation Comments GLUBED (test code = GLUBED) 111 mg/dL 74-106 H Performed by certified pulping machine operator at [facility] BASIC METABOLIC [id number] 07:39:00* Test Item Value Reference Range Interpretation Comments SODIUM (test code = NA) 144 mmol/L 136-145 N POTASSIUM (test code = K) 3.9 mmol/L 3.5-5.1 N CHLORIDE (test code = CL) 111.0 mmol/L 98-107 H CARBON DIOXIDE (test code = CO2) 27.0 mmol/L 21-32 N ANION GAP (test code = GAP) 9.9 10-20 L GLUCOSE (test code = GLU) 84 mg/dL 74-106 N BLOOD UREA NITROGEN (test code = BUN) 10 mg/dL 7-18 N GLOMERULAR FILTRATION RATE (test code = GFR) > 60 mL/min >=60 Estimated GFR by using Modified MDRD formula.Chronic kidney disease is defined as either kidney damageor GFR <60 mL/min/1.73 m2 for >3 months. CREATININE (test code = CREAT) 0.50 mg/dL 0.55-1.02 L Note change in reference range due to change in reagent. BUN/CREATININE RATIO (test code = BUN/CREA) 19.6 10-20 N CALCIUM (test code = CA) 8.7 mg/dL 8.5-10.1 N [id number] 07:39:00* Test Item Value Reference Range Interpretation Comments MAGNESIUM (test code = MAG) 1.9 mg/dL 1.8-2.4 N BASIC METABOLIC [id number] 07:06:00* Test Item Value Reference Range Interpretation Comments SODIUM (test code = NA) 144 mmol/L 136-145 N POTASSIUM (test code = K) 3.9 mmol/L 3.5-5.1 N CHLORIDE (test code = CL) 111.0 mmol/L 98-107 H CARBON DIOXIDE (test code = CO2) mmol/L 21-32 ANION GAP (test code = GAP) 10-20 GLUCOSE (test code = GLU) mg/dL 74-106 BLOOD UREA NITROGEN (test code = BUN) mg/dL 7-18 GLOMERULAR FILTRATION RATE (test code = GFR) mL/min >=60 CREATININE (test code = CREAT) mg/dL 0.55-1.02 BUN/CREATININE RATIO (test code = BUN/CREA) 10-20 CALCIUM (test code = CA) mg/dL 8.5-10.1 [id number] 07:06:00* Test Item Value Reference Range Interpretation Comments MAGNESIUM (test code = MAG) mg/dL 1.8-2.4 CBC W/AUTO [id number] 06:19:00* Test Item Value Reference Range Interpretation Comments WHITE BLOOD CELL (test code = WBC) 4.7 K/mm3 4.5-12.5 N RED BLOOD CELL (test code = RBC) 2.86 mill/mm3 3.7-5.2 L HEMOGLOBIN (test code = HGB) 8.4 gram/dL 11.5-15.5 L HEMATOCRIT (test code = HCT) 26.7 % 36.0-46.0 L MEAN CELL VOLUME (test code = MCV) 93.4 fL 80-98 N MEAN CELL HGB (test code = MCH) 29.4 picogram 27.0-33.0 N MEAN CELL HGB CONCETRATION (test code = MCHC) 31.5 gram/dL 33.0-36. 0 L RED CELL DISTRIBUTION WIDTH (test code = RDW) 12.1 % 11.6-16. 2 N RED CELL DISTRIBUTION WIDTH SD (test code = RDW-SD) 41.1 fL 37 .0-51.0 N PLATELET COUNT (test code = PLT) 58 K/mm3 150-450 L MEAN PLATELET VOLUME (test code = MPV) 14.2 fL 6.7-11.0 H NEUTROPHIL % (test code = NT%) 55.3 % 39.0-69.0 N IMMATURE GRANULOCYTE % (test code = IG%) 1.9 % 0.0-5.0 N LYMPHOCYTE % (test code = LY%) 28.4 % 25.0-55.0 N MONOCYTE % (test code = MO%) 10.2 % 0.0-10.0 H EOSINOPHIL % (test code = EO%) 4.0 % 0.0-5.0 N BASOPHIL % (test code = BA%) 0.2 % 0.0-1.0 N NUCLEATED RBC % (test code = NRBC%) 0.0 % 0-0 N NEUTROPHIL # (test code = NT#) 2.61 K/mm3 1.8-7.7 N IMMATURE GRANULOCYTE # (test code = IG#) 0.09 x10 3/uL 0-0.03 H LYMPHOCYTE # (test code = LY#) 1.34 K/mm3 1.0-5.0 N MONOCYTE # (test code = MO#) 0.48 K/mm3 0-0.8 N EOSINOPHIL # (test code = EO#) 0.19 K/mm3 0.0-0.5 N BASOPHIL # (test code = BA#) 0.01 K/mm3 0.0-0.2 N NUCLEATED RBC # (test code = NRBC#) 0.00 K/mm3 0.0-0.1 N MANUAL DIFF REQUIRED (test code = MDIFF) NO, ONLY SCAN NEEDED DIFFERENTIAL [id number] 06:19:00* Test Item Value Reference Range Interpretation Comments STAIN ACCEPTABILITY (test code = STN ACCEPTABLE) STAIN ACCEPTABLE PLATELET ESTIMATE (test code = PLTEST) DECREASED PLATELET MORPHOLOGY (test code = PLTMORPH) NORMAL [id number] 06:13:00* Test Item Value Reference Range Interpretation Comments GLUBED (test code = GLUBED) 87 mg/dL 74-106 N Performed by certified pulping machine operator at [facility] CBC W/AUTO [id number] 05:52:00* Test Item Value Reference Range Interpretation Comments WHITE BLOOD CELL (test code = WBC) 4.7 K/mm3 4.5-12.5 N RED BLOOD CELL (test code = RBC) 2.86 mill/mm3 3.7-5.2 L HEMOGLOBIN (test code = HGB) 8.4 gram/dL 11.5-15.5 L HEMATOCRIT (test code = HCT) 26.7 % 36.0-46.0 L MEAN CELL VOLUME (test code = MCV) 93.4 fL 80-98 N MEAN CELL HGB (test code = MCH) 29.4 picogram 27.0-33.0 N MEAN CELL HGB CONCETRATION (test code = MCHC) 31.5 gram/dL 33.0-36. 0 L RED CELL DISTRIBUTION WIDTH (test code = RDW) 12.1 % 11.6-16. 2 N RED CELL DISTRIBUTION WIDTH SD (test code = RDW-SD) 41.1 fL 37 .0-51.0 N PLATELET COUNT (test code = PLT) 58 K/mm3 150-450 L MEAN PLATELET VOLUME (test code = MPV) 14.2 fL 6.7-11.0 H NEUTROPHIL % (test code = NT%) 55.3 % 39.0-69.0 N IMMATURE GRANULOCYTE % (test code = IG%) 1.9 % 0.0-5.0 N LYMPHOCYTE % (test code = LY%) 28.4 % 25.0-55.0 N MONOCYTE % (test code = MO%) 10.2 % 0.0-10.0 H EOSINOPHIL % (test code = EO%) 4.0 % 0.0-5.0 N BASOPHIL % (test code = BA%) 0.2 % 0.0-1.0 N NUCLEATED RBC % (test code = NRBC%) 0.0 % 0-0 N NEUTROPHIL # (test code = NT#) 2.61 K/mm3 1.8-7.7 N IMMATURE GRANULOCYTE # (test code = IG#) 0.09 x10 3/uL 0-0.03 H LYMPHOCYTE # (test code = LY#) 1.34 K/mm3 1.0-5.0 N MONOCYTE # (test code = MO#) 0.48 K/mm3 0-0.8 N EOSINOPHIL # (test code = EO#) 0.19 K/mm3 0.0-0.5 N BASOPHIL # (test code = BA#) 0.01 K/mm3 0.0-0.2 N NUCLEATED RBC # (test code = NRBC#) 0.00 K/mm3 0.0-0.1 N MANUAL DIFF REQUIRED (test code = MDIFF) NO, ONLY SCAN NEEDED DIFFERENTIAL [id number] 05:52:00* Test Item Value Reference Range Interpretation Comments STAIN ACCEPTABILITY (test code = STN ACCEPTABLE) CABOT RINGS (test code = CAB) MORPHOLOGY COMMENT (test code = MOC) PLATELET ESTIMATE (test code = PLTEST) PLATELET MORPHOLOGY (test code = PLTMORPH) CBC W/AUTO [id number] 05:52:00* Test Item Value Reference Range Interpretation Comments WHITE BLOOD CELL (test code = WBC) 4.7 K/mm3 4.5-12.5 N RED BLOOD CELL (test code = RBC) 2.86 mill/mm3 3.7-5.2 L HEMOGLOBIN (test code = HGB) 8.4 gram/dL 11.5-15.5 L HEMATOCRIT (test code = HCT) 26.7 % 36.0-46.0 L MEAN CELL VOLUME (test code = MCV) 93.4 fL 80-98 N MEAN CELL HGB (test code = MCH) 29.4 picogram 27.0-33.0 N MEAN CELL HGB CONCETRATION (test code = MCHC) 31.5 gram/dL 33.0-36. 0 L RED CELL DISTRIBUTION WIDTH (test code = RDW) 12.1 % 11.6-16. 2 N RED CELL DISTRIBUTION WIDTH SD (test code = RDW-SD) 41.1 fL 37 .0-51.0 N PLATELET COUNT (test code = PLT) 58 K/mm3 150-450 L MEAN PLATELET VOLUME (test code = MPV) 14.2 fL 6.7-11.0 H NEUTROPHIL % (test code = NT%) 55.3 % 39.0-69.0 N IMMATURE GRANULOCYTE % (test code = IG%) 1.9 % 0.0-5.0 N LYMPHOCYTE % (test code = LY%) 28.4 % 25.0-55.0 N MONOCYTE % (test code = MO%) 10.2 % 0.0-10.0 H EOSINOPHIL % (test code = EO%) 4.0 % 0.0-5.0 N BASOPHIL % (test code = BA%) 0.2 % 0.0-1.0 N NUCLEATED RBC % (test code = NRBC%) 0.0 % 0-0 N NEUTROPHIL # (test code = NT#) 2.61 K/mm3 1.8-7.7 N IMMATURE GRANULOCYTE # (test code = IG#) 0.09 x10 3/uL 0-0.03 H LYMPHOCYTE # (test code = LY#) 1.34 K/mm3 1.0-5.0 N MONOCYTE # (test code = MO#) 0.48 K/mm3 0-0.8 N EOSINOPHIL # (test code = EO#) 0.19 K/mm3 0.0-0.5 N BASOPHIL # (test code = BA#) 0.01 K/mm3 0.0-0.2 N NUCLEATED RBC # (test code = NRBC#) 0.00 K/mm3 0.0-0.1 N MANUAL DIFF REQUIRED (test code = MDIFF) NO, ONLY SCAN NEEDED DIFFERENTIAL [id number] 05:52:00* Test Item Value Reference Range Interpretation Comments STAIN ACCEPTABILITY (test code = STN ACCEPTABLE) CABOT RINGS (test code = CAB) MORPHOLOGY COMMENT (test code = MOC) PLATELET ESTIMATE (test code = PLTEST) PLATELET MORPHOLOGY (test code = PLTMORPH) CBC W/AUTO [id number] 05:52:00* Test Item Value Reference Range Interpretation Comments WHITE BLOOD CELL (test code = WBC) 4.7 K/mm3 4.5-12.5 N RED BLOOD CELL (test code = RBC) 2.86 mill/mm3 3.7-5.2 L HEMOGLOBIN (test code = HGB) 8.4 gram/dL 11.5-15.5 L HEMATOCRIT (test code = HCT) 26.7 % 36.0-46.0 L MEAN CELL VOLUME (test code = MCV) 93.4 fL 80-98 N MEAN CELL HGB (test code = MCH) 29.4 picogram 27.0-33.0 N MEAN CELL HGB CONCETRATION (test code = MCHC) 31.5 gram/dL 33.0-36. 0 L RED CELL DISTRIBUTION WIDTH (test code = RDW) 12.1 % 11.6-16. 2 N RED CELL DISTRIBUTION WIDTH SD (test code = RDW-SD) 41.1 fL 37 .0-51.0 N PLATELET COUNT (test code = PLT) 58 K/mm3 150-450 L MEAN PLATELET VOLUME (test code = MPV) 14.2 fL 6.7-11.0 H NEUTROPHIL % (test code = NT%) 55.3 % 39.0-69.0 N IMMATURE GRANULOCYTE % (test code = IG%) 1.9 % 0.0-5.0 N LYMPHOCYTE % (test code = LY%) 28.4 % 25.0-55.0 N MONOCYTE % (test code = MO%) 10.2 % 0.0-10.0 H EOSINOPHIL % (test code = EO%) 4.0 % 0.0-5.0 N BASOPHIL % (test code = BA%) 0.2 % 0.0-1.0 N NUCLEATED RBC % (test code = NRBC%) 0.0 % 0-0 N NEUTROPHIL # (test code = NT#) 2.61 K/mm3 1.8-7.7 N IMMATURE GRANULOCYTE # (test code = IG#) 0.09 x10 3/uL 0-0.03 H LYMPHOCYTE # (test code = LY#) 1.34 K/mm3 1.0-5.0 N MONOCYTE # (test code = MO#) 0.48 K/mm3 0-0.8 N EOSINOPHIL # (test code = EO#) 0.19 K/mm3 0.0-0.5 N BASOPHIL # (test code = BA#) 0.01 K/mm3 0.0-0.2 N NUCLEATED RBC # (test code = NRBC#) 0.00 K/mm3 0.0-0.1 N MANUAL DIFF REQUIRED (test code = MDIFF) NO, ONLY SCAN NEEDED DIFFERENTIAL [id number] 05:52:00* Test Item Value Reference Range Interpretation Comments STAIN ACCEPTABILITY (test code = STN ACCEPTABLE) MORPHOLOGY COMMENT (test code = MOC) PLATELET ESTIMATE (test code = PLTEST) PLATELET MORPHOLOGY (test code = PLTMORPH) CBC W/AUTO [id number] 05:52:00* Test Item Value Reference Range Interpretation Comments WHITE BLOOD CELL (test code = WBC) 4.7 K/mm3 4.5-12.5 N RED BLOOD CELL (test code = RBC) 2.86 mill/mm3 3.7-5.2 L HEMOGLOBIN (test code = HGB) 8.4 gram/dL 11.5-15.5 L HEMATOCRIT (test code = HCT) 26.7 % 36.0-46.0 L MEAN CELL VOLUME (test code = MCV) 93.4 fL 80-98 N MEAN CELL HGB (test code = MCH) 29.4 picogram 27.0-33.0 N MEAN CELL HGB CONCETRATION (test code = MCHC) 31.5 gram/dL 33.0-36. 0 L RED CELL DISTRIBUTION WIDTH (test code = RDW) 12.1 % 11.6-16. 2 N RED CELL DISTRIBUTION WIDTH SD (test code = RDW-SD) 41.1 fL 37 .0-51.0 N PLATELET COUNT (test code = PLT) 58 K/mm3 150-450 L MEAN PLATELET VOLUME (test code = MPV) 14.2 fL 6.7-11.0 H NEUTROPHIL % (test code = NT%) 55.3 % 39.0-69.0 N IMMATURE GRANULOCYTE % (test code = IG%) 1.9 % 0.0-5.0 N LYMPHOCYTE % (test code = LY%) 28.4 % 25.0-55.0 N MONOCYTE % (test code = MO%) 10.2 % 0.0-10.0 H EOSINOPHIL % (test code = EO%) 4.0 % 0.0-5.0 N BASOPHIL % (test code = BA%) 0.2 % 0.0-1.0 N NUCLEATED RBC % (test code = NRBC%) 0.0 % 0-0 N NEUTROPHIL # (test code = NT#) 2.61 K/mm3 1.8-7.7 N IMMATURE GRANULOCYTE # (test code = IG#) 0.09 x10 3/uL 0-0.03 H LYMPHOCYTE # (test code = LY#) 1.34 K/mm3 1.0-5.0 N MONOCYTE # (test code = MO#) 0.48 K/mm3 0-0.8 N EOSINOPHIL # (test code = EO#) 0.19 K/mm3 0.0-0.5 N BASOPHIL # (test code = BA#) 0.01 K/mm3 0.0-0.2 N NUCLEATED RBC # (test code = NRBC#) 0.00 K/mm3 0.0-0.1 N MANUAL DIFF REQUIRED (test code = MDIFF) NO, ONLY SCAN NEEDED DIFFERENTIAL [id number] 05:52:00* Test Item Value Reference Range Interpretation Comments STAIN ACCEPTABILITY (test code = STN ACCEPTABLE) CABOT RINGS (test code = CAB) MORPHOLOGY COMMENT (test code = MOC) PLATELET ESTIMATE (test code = PLTEST) PLATELET MORPHOLOGY (test code = PLTMORPH) [id number] 01:58:00* Test Item Value Reference Range Interpretation Comments VANCOMYCIN (test code = VANCO) 30.0 UG/ML 5.0-45.0 N [id number] 22:13:00* Test Item Value Reference Range Interpretation Comments GLUBED (test code = GLUBED) 92 mg/dL 74-106 N Performed by certified pulping machine operator at [facility] [id number] 07:36:00* Test Item Value Reference Range Interpretation Comments GLUBED (test code = GLUBED) 101 mg/dL 74-106 N Performed by certified pulping machine operator at [facility] CBC W/O [id number] 06:44:00* Test Item Value Reference Range Interpretation Comments WHITE BLOOD CELL (test code = WBC) 4.6 K/mm3 4.5-12.5 N RED BLOOD CELL (test code = RBC) 2.75 mill/mm3 3.7-5.2 L HEMOGLOBIN (test code = HGB) 8.0 gram/dL 11.5-15.5 L HEMATOCRIT (test code = HCT) 25.5 % 36.0-46.0 L MEAN CELL VOLUME (test code = MCV) 92.7 fL 80-98 N MEAN CELL HGB (test code = MCH) 29.1 picogram 27.0-33.0 N MEAN CELL HGB CONCETRATION (test code = MCHC) 31.4 gram/dL 33.0-36. 0 L RED CELL DISTRIBUTION WIDTH (test code = RDW) 12.0 % 11.6-16. 2 N PLATELET COUNT (test code = PLT) 58 K/mm3 150-450 L MEAN PLATELET VOLUME (test code = MPV) 14.7 fL 6.7-11.0 H BASIC METABOLIC [id number] 06:23:00* Test Item Value Reference Range Interpretation Comments SODIUM (test code = NA) 144 mmol/L 136-145 N POTASSIUM (test code = K) 3.7 mmol/L 3.5-5.1 N CHLORIDE (test code = CL) 114.0 mmol/L 98-107 H CARBON DIOXIDE (test code = CO2) 27.0 mmol/L 21-32 N ANION GAP (test code = GAP) 6.7 10-20 L GLUCOSE (test code = GLU) 104 mg/dL 74-106 N BLOOD UREA NITROGEN (test code = BUN) 10 mg/dL 7-18 N GLOMERULAR FILTRATION RATE (test code = GFR) > 60 mL/min >=60 Estimated GFR by using Modified MDRD formula.Chronic kidney disease is defined as either kidney damageor GFR <60 mL/min/1.73 m2 for >3 months. CREATININE (test code = CREAT) 0.60 mg/dL 0.55-1.02 N Note change in reference range due to change in reagent. BUN/CREATININE RATIO (test code = BUN/CREA) 17.7 10-20 N CALCIUM (test code = CA) 8.9 mg/dL 8.5-10.1 N [id number] 06:23:00* Test Item Value Reference Range Interpretation Comments MAGNESIUM (test code = MAG) 1.6 mg/dL 1.8-2.4 L [id number] 15:13:00* Test Item Value Reference Range Interpretation Comments GLUBED (test code = GLUBED) 104 mg/dL 74-106 N Performed by certified pulping machine operator at [facility] - XR CHEST 1 [id number] 07:32:00 FAX: Yoly Payne MD [phone] [place]: B St: DIS FAX: Sil Farrar MD Name: MOJGAN CUMMINGS [facility] : 1950 Age/S: 69/F [address] [facility] Unit #: [id number] [place] [place] [address] Phys: Sil Farrar MD Acct: [id number] Dis Date: [id number] Status: DIS IN PHONE #: [phone] Exam Date: 08/16/2019 0650 FAX #: [phone] Reason: ventilator, copd EXAMS: CPT CODE: [id number] XR CHEST 1 V 75538 EXAM: Chest x-ray, one view; INFORMATION: Respiratory failure; IMPRESSION: Improvement compared with yesterday's study: Lungs are better aerated with partial resolution of basilar atelectasis; Normal-sized heart; at 0732 Reported and signed by: Rex Gates M.D. CC: Yoly Sapp MD; Sil Farrar MD Technologist: RADHA ALEXANDRA(R) Trnscrd Date/Time/By: 08/16/2019 (0732) : By: HarryGRW Orig Print D/T: S: 08/16/2019 (0735) PAGE 1 Signed Report - XR CHEST 1 [id number] 07:32:00 FAX: Yoly Payne MD [phone] [place]: St: [facility] FAX: Sil Farrar MD Name: MOJGAN CUMMINGS [facility] : 1950 Age/S: 69/F [address] [facility] Unit #: [id number] Loc: [facility] [place] [address] Phys: Sil Farrar MD Acct: [id number] Dis Date: Status: ADM IN PHONE #: [phone] Exam Date: 08/16/2019 0650 FAX #: [phone] Reason: ventilator, copd EXAMS: CPT CODE: [id number] XR CHEST 1 V 88847 EXAM: Chest x-ray, one view; INFORMATION: Respirat ory failure; IMPRESSION: Improvement compared with yeste momo's study: Lungs are better aerated with partial resolution of basila r atelectasis; Normal-sized heart; Electronically S igned by Crispin Gates on 08/16/2019 at 0732 Reported and signed by: Rigoberto Johnson CC: Yoly Sapp MD; Sil Farrar MD Technologist: RADHA ALEXANDRA(R) Trnscrd Date/Time/By: 08/16/2019 (0732) : By: JenniferW Orig Print D/T : S: 08/16/2019 (0741) PAGE 1 Sig julian Report - XR CHEST 1 [id number] 07:32:00 FAX: Yoly Payne MD [phone] [place]: B St: DIS FAX: Sil Farrar MD Name: MOJGAN CUMMINGS [facility] : 1950 Age/S: 69/F [address] [facility] Unit #: [id number] Loc: V.2078 [place] [address] Phys: Sil Farrar MD Acct: [id number] Dis Date: [id number] Status: DIS IN PHONE #: [phone] Exam Date: 08/16/2019 0650 FAX #: [phone] Reason: ventilator, copd EXAMS: CPT CODE: [id number] XR CHEST 1 V 52021 EXAM: Chest x-ray, one view; INFORMATION: Respirat ory failure; IMPRESSION: Improvement compared with yesmarlena barr's study: Lungs are better aerated with partial resolution of basila r atelectasis; Normal-sized heart; Electronically S igned by Crispin Gates on 08/16/2019 at 0732 Reported and signed by: Rigoberto Johnson CC: Yoly Sapp MD; Sil Farrar MD Technologist: RADHA LOCKETT RT(R) Trnscrd Date/Time/By: 08/16/2019 (0732) : By: [email or web address] Orig Print D/T : S: 08/16/2019 (0738) PAGE 1 Sig julian Report CBC W/O [id number] 07:26:00* Test Item Value Reference Range Interpretation Comments WHITE BLOOD CELL (test code = WBC) 4.6 K/mm3 4.5-12.5 N RED BLOOD CELL (test code = RBC) 2.79 mill/mm3 3.7-5.2 L HEMOGLOBIN (test code = HGB) 8.2 gram/dL 11.5-15.5 L HEMATOCRIT (test code = HCT) 26.1 % 36.0-46.0 L MEAN CELL VOLUME (test code = MCV) 93.5 fL 80-98 N MEAN CELL HGB (test code = MCH) 29.4 picogram 27.0-33.0 N MEAN CELL HGB CONCETRATION (test code = MCHC) 31.4 gram/dL 33.0-36. 0 L RED CELL DISTRIBUTION WIDTH (test code = RDW) 11.9 % 11.6-16. 2 N PLATELET COUNT (test code = PLT) 48 K/mm3 150-450 LL Results called [id number] by [facility] 08/16/19 0722Critical results verified and read back by Nurse? Y MEAN PLATELET VOLUME (test code = MPV) 15.3 fL 6.7-11.0 H BASIC METABOLIC [id number] 07:15:00* Test Item Value Reference Range Interpretation Comments SODIUM (test code = NA) 142 mmol/L 136-145 N POTASSIUM (test code = K) 3.9 mmol/L 3.5-5.1 N CHLORIDE (test code = CL) 110.0 mmol/L 98-107 H CARBON DIOXIDE (test code = CO2) 23.0 mmol/L 21-32 N ANION GAP (test code = GAP) 12.9 10-20 N GLUCOSE (test code = GLU) 77 mg/dL 74-106 N BLOOD UREA NITROGEN (test code = BUN) 8 mg/dL 7-18 N GLOMERULAR FILTRATION RATE (test code = GFR) > 60 mL/min >=60 Estimated GFR by using Modified MDRD formula.Chronic kidney disease is defined as either kidney damageor GFR <60 mL/min/1.73 m2 for >3 months. CREATININE (test code = CREAT) 0.50 mg/dL 0.55-1.02 L Note change in reference range due to change in reagent. BUN/CREATININE RATIO (test code = BUN/CREA) 16.1 10-20 N CALCIUM (test code = CA) 8.7 mg/dL 8.5-10.1 N BASIC METABOLIC [id number] 07:06:00* Test Item Value Reference Range Interpretation Comments SODIUM (test code = NA) 142 mmol/L 136-145 N POTASSIUM (test code = K) 3.9 mmol/L 3.5-5.1 N CHLORIDE (test code = CL) 110.0 mmol/L 98-107 H CARBON DIOXIDE (test code = CO2) mmol/L 21-32 ANION GAP (test code = GAP) 10-20 GLUCOSE (test code = GLU) mg/dL 74-106 BLOOD UREA NITROGEN (test code = BUN) mg/dL 7-18 GLOMERULAR FILTRATION RATE (test code = GFR) mL/min >=60 CREATININE (test code = CREAT) mg/dL 0.55-1.02 BUN/CREATININE RATIO (test code = BUN/CREA) 10-20 CALCIUM (test code = CA) mg/dL 8.5-10.1 [id number] 07:06:00* Test Item Value Reference Range Interpretation Comments MAGNESIUM (test code = MAG) 1.7 mg/dL 1.8-2.4 L - XR CHEST 1 [id number] 06:48:00 FAX: Yoly Payne MD [phone] [place]: B St: DIS FAX: Sil Farrar MD Name: MOJGAN CUMMINGS [facility] : 1950 Age/S: 69/F [place] Unit #: [id number] Loc: V.[address] [place] [address] Phys: Sil Farrar MD Acct: [id number] Dis Date: [id number] Status: DIS IN PHONE #: [phone] Exam Date: 08/15/2019525 FAX #: [phone] Reason: ventilator, copd EXAMS: CPT CODE: [id number] XR CHEST 1 V 82132 HISTORY: Respiratory failure, ventilator, copd TECHNIQUE: AP chest x-ray COMPARISON: Previous day. IMPRESSION: Increasing bibasilar airspace opacification and atelectasis. Small pleural effusion may be present. Normal heart size. Tracheostomy tube. LOCATION: at 0648 Reported and signed by: Lenka Farrar D.O. CC: Yoly Sapp MD; Sil Farrar MD Technologist: OCTAVIO Darling Trnscrd Date/Time/By: 08/15/2019 (0648) : By: [email or web address] Orig Print D/T: S: (0651) PAGE 1 Signed Rep ort - XR CHEST 1 [id number] 06:48:00 FAX: Yoly Payne MD [phone] [place]: B St: ADM FAX: Sil Farrar MD Name: MOJGAN CUMMINGS [facility] : 1950 Age/S: 69/F [address] Unit #: [id number] Loc: V.S22 [place] [address] Phys: Sil Farrar MD Acct: [id number] Dis Date: Status: ADM IN PHONE #: [phone] Exam Date: 08/15/2019525 FAX #: [phone] Reason: ventilator, copd EXAMS: CPT CODE: [id number] XR CHEST 1 V 31610 HISTORY: Respiratory failure, ventilator, copd AHSAN HNIQUE: AP chest x-ray COMPARISON: Previous day. I MPRESSION: Increasing bibasilar airspace opacification and ate lectasis. Small pleural effusion may be present. Normal heart size. Trac heostomy tube. LOCATION: Electronically Signed by Lenka Farrar D.O. o lamonte 08/15/2019 at 0648 Reported and signed by: Lenka Daniels CC: Yoly Sapp MD; Sil Farrar MD Technologist: OCTAVIO Darling Trnwyrd Date/Time/By: 08/15/2019 (0648) : By: [email or web address] Orig Print D/T: S: (0651) PAGE 1 Signed Rep ort - XR CHEST 1 [id number] 06:48:00 FAX: Yoly Payne MD [phone] [place]: St: DIS FAX: Sil Farrar MD Name: MOJGAN CUMMINGS [facility] : 1950 Age/S: 69/F [address] Unit #: [id number] [place]: V.[address] [place] [address] Phys: Sil Farrar MD Acct: [id number] Dis Date: [id number] Status: DIS IN PHONE #: [phone] Exam Date: 08/15/2019525 FAX #: [phone] Reason: ventilator, copd EXAMS: CPT CODE: [id number] XR CHEST 1 V 23254 HISTORY: Respiratory failure, ventilator, copd AHSAN HNIQUE: AP chest x-ray COMPARISON: Previous day. I MPRESSION: Increasing bibasilar airspace opacification and ate lectasis. Small pleural effusion may be present. Normal heart size. Trac heostomy tube. LOCATION: Electronically Signed by Lenka Farrar D.O. o [place]onte 08/15/2019 at 0648 Reported and signed by: Lenka Daniels CC: Yoly Sapp MD; Sil Farrar MD Technologist: OCTAVIO Darling Trnscrd Date/Time/By: 08/15/2019 (0648) : By: [email or web address] Orig Print D/T: S: (0651) PAGE 1 Signed Rep ort [id number] 06:26:00* Test Item Value Reference Range Interpretation Comments PHOSPHORUS (test code = PHOS) 2.2 mg/dL 2.5-4.9 L BASIC METABOLIC [id number] 04:06:00* Test Item Value Reference Range Interpretation Comments SODIUM (test code = NA) 142 mmol/L 136-145 N POTASSIUM (test code = K) 4.3 mmol/L 3.5-5.1 N CHLORIDE (test code = CL) 111.0 mmol/L 98-107 H CARBON DIOXIDE (test code = CO2) 24.0 mmol/L 21-32 N ANION GAP (test code = GAP) 11.3 10-20 N GLUCOSE (test code = GLU) 76 mg/dL 74-106 N BLOOD UREA NITROGEN (test code = BUN) 7 mg/dL 7-18 N GLOMERULAR FILTRATION RATE (test code = GFR) > 60 mL/min >=60 Estimated GFR by using Modified MDRD formula.Chronic kidney disease is defined as either kidney damageor GFR <60 mL/min/1.73 m2 for >3 months. CREATININE (test code = CREAT) 0.60 mg/dL 0.55-1.02 N Note change in reference range due to change in reagent. BUN/CREATININE RATIO (test code = BUN/CREA) 12.6 10-20 N CALCIUM (test code = CA) 8.5 mg/dL 8.5-10.1 N [id number] 03:58:00* Test Item Value Reference Range Interpretation Comments MAGNESIUM (test code = MAG) 1.6 mg/dL 1.8-2.4 L CBC W/O [id number] 03:34:00* Test Item Value Reference Range Interpretation Comments WHITE BLOOD CELL (test code = WBC) 5.9 K/mm3 4.5-12.5 N RED BLOOD CELL (test code = RBC) 2.75 mill/mm3 3.7-5.2 L HEMOGLOBIN (test code = HGB) 8.2 gram/dL 11.5-15.5 L HEMATOCRIT (test code = HCT) 25.3 % 36.0-46.0 L MEAN CELL VOLUME (test code = MCV) 92.0 fL 80-98 N MEAN CELL HGB (test code = MCH) 29.8 picogram 27.0-33.0 N MEAN CELL HGB CONCETRATION (test code = MCHC) 32.4 gram/dL 33.0-36. 0 L RED CELL DISTRIBUTION WIDTH (test code = RDW) 12.2 % 11.6-16. 2 N PLATELET COUNT (test code = PLT) 46 K/mm3 150-450 LL Results called to [id number] by V.[email or web address].AG1 08/15/19 0333Critical results verified and read back by Nurse? Y MEAN PLATELET VOLUME (test code = MPV) TEST NOT PERFORMED fL 6.7-11 .0 [id number] 07:05:00* Test Item Value Reference Range Interpretation Comments PHOSPHORUS (test code = PHOS) 2.9 mg/dL 2.5-4.9 N [id number] 07:05:00* Test Item Value Reference Range Interpretation Comments MAGNESIUM (test code = MAG) 1.9 mg/dL 1.8-2.4 N [id number] 07:02:00* Test Item Value Reference Range Interpretation Comments PHOSPHORUS (test code = PHOS) mg/dL 2.5-4.9 [id number] 07:02:00* Test Item Value Reference Range Interpretation Comments MAGNESIUM (test code = MAG) 1.9 mg/dL 1.8-2.4 N BASIC METABOLIC [id number] 06:16:00* Test Item Value Reference Range Interpretation Comments SODIUM (test code = NA) 142 mmol/L 136-145 N POTASSIUM (test code = K) 4.0 mmol/L 3.5-5.1 N CHLORIDE (test code = CL) 111.0 mmol/L 98-107 H CARBON DIOXIDE (test code = CO2) 25.0 mmol/L 21-32 N ANION GAP (test code = GAP) 10.0 10-20 N GLUCOSE (test code = GLU) 100 mg/dL 74-106 N BLOOD UREA NITROGEN (test code = BUN) 9 mg/dL 7-18 N GLOMERULAR FILTRATION RATE (test code = GFR) > 60 mL/min >=60 Estimated GFR by using Modified MDRD formula.Chronic kidney disease is defined as either kidney damageor GFR <60 mL/min/1.73 m2 for >3 months. CREATININE (test code = CREAT) 0.50 mg/dL 0.55-1.02 L Note change in reference range due to change in reagent. BUN/CREATININE RATIO (test code = BUN/CREA) 16.6 10-20 N CALCIUM (test code = CA) 8.7 mg/dL 8.5-10.1 N CBC W/O [id number] 06:12:00* Test Item Value Reference Range Interpretation Comments WHITE BLOOD CELL (test code = WBC) 6.7 K/mm3 4.5-12.5 N RED BLOOD CELL (test code = RBC) 2.64 mill/mm3 3.7-5.2 L HEMOGLOBIN (test code = HGB) 7.6 gram/dL 11.5-15.5 L HEMATOCRIT (test code = HCT) 24.5 % 36.0-46.0 L MEAN CELL VOLUME (test code = MCV) 92.8 fL 80-98 N MEAN CELL HGB (test code = MCH) 28.8 picogram 27.0-33.0 N MEAN CELL HGB CONCETRATION (test code = MCHC) 31.0 gram/dL 33.0-36. 0 L RED CELL DISTRIBUTION WIDTH (test code = RDW) 12.2 % 11.6-16. 2 N PLATELET COUNT (test code = PLT) 40 K/mm3 150-450 LL Results called to [id number] by МАРИНА 08/14/19 0611Critical results verified and read back by Nurse? Y BASIC METABOLIC [id number] 06:08:00* Test Item Value Reference Range Interpretation Comments SODIUM (test code = NA) 142 mmol/L 136-145 N POTASSIUM (test code = K) 4.0 mmol/L 3.5-5.1 N CHLORIDE (test code = CL) 111.0 mmol/L 98-107 H CARBON DIOXIDE (test code = CO2) mmol/L 21-32 ANION GAP (test code = GAP) 10-20 GLUCOSE (test code = GLU) mg/dL 74-106 BLOOD UREA NITROGEN (test code = BUN) mg/dL 7-18 GLOMERULAR FILTRATION RATE (test code = GFR) mL/min >=60 CREATININE (test code = CREAT) mg/dL 0.55-1.02 BUN/CREATININE RATIO (test code = BUN/CREA) 10-20 CALCIUM (test code = CA) mg/dL 8.5-10.1 - XR CHEST 1 [id number] 06:08:00 FAX: [facility] [place]: B St: DIS FAX: Sil Farrar MD Name: MOJGAN CUMMINGS [facility] : 1950 Age/S: 69/F [address] [facility] Unit #: [id number] Loc: V.2078 [place] [address] Phys: Sil Farrar MD Acct: [id number] Dis Date: 20190819 Status: DIS IN PHONE #: [phone] Exam Date: 08/14/2019528 FAX #: [phone] Reason: ventilator, copd EXAMS: CPT CODE: [id number] XR CHEST 1 V 54271 HISTORY: Respiratory failure, ventilator, copd TECHNIQUE: AP chest x-ray COMPARISON: Previous day. IMPRESSION: Increasing bibasilar subsegmental atelectasis. No airspace consolidation or pleural effusion. Normal heart size. Mediastinal silhouette is unremarkable. Tracheostomy tube. LOCATION: LP at 0608 Reported and signed by: Lenka Farrar D.O. CC: Lenore Barraza MD; Sil Farrar MD Technologist: OCTAVIO Darling Trnscrd Date/Time/By: 08/14/2019 (0608) : By: [email or web address] Orig Print D/T: S: 08/14/2019 (0611) PAGE 1 Signed Report - XR CHEST 1 V 2019-08-14 06:08:00 FAX: Lenore Barraza [place]: B St: ADM FAX: Sil Farrar MD Name: MOJGAN CUMMINGS [facility] : 1950 Age/S: 69/F [address] [facility] Unit #: [id number] Loc: [address] [address] Phys: Sil Farrar MD Acct: [id number] Dis Date: Status: ADM IN PHONE #: [phone] Exam Date: 08/14/2019528 FAX #: [phone] Reason: ventilator, copd EXAMS: CPT CODE: [id number] XR CHEST 1 V 19816 HISTORY: Respiratory failure, ventilator, copd TECHNIQUE: AP chest x-ray COMPARISON: Previous day. IMPRESSION: Increasing bibasilar subsegmental atelectasis. No airspace consolidation or pleural effusion. Normal heart size. Mediastinal silhouette is unremarkable. Tracheostomy tube. LOCATION: LP at 0608 Reported and signed by: Lenka Farrar D.O. CC: Lenore Barraza MD; Sil Farrar MD Technologist: OCTAVIO Darling Trnscrd Date/Time/By: 08/14/2019 (0608) : By: [email or web address] Orig Print D/T: S: 08/14/2019 (0611) PAGE 1 Signed Report - XR CHEST 1 V 2019-08-14 06:08:00 FAX: Lenore Barraza [place]: B St: DIS FAX: Sil Farrar MD Name: MOJGAN CUMMINGS [facility] : 1950 Age/S: 69/F [address] [facility] Unit #: [id number] Loc: [place] [address] Phys: Sil Farrar MD Acct: [id number] Dis Date: [id number] Status: DIS IN PHONE #: [phone] Exam Date: 08/14/2019528 FAX #: [phone] Reason: ventilator, copd EXAMS: CPT CODE: [id number] XR CHEST 1 V 34335 HISTORY: Respiratory failure, ventilator, copd TECHNIQUE: AP chest x-ray COMPARISON: Previous day. IMPRESSION: Increasing bibasilar subsegmental atelectasis. No airspace consolidation or pleural effusion. Normal heart size. Mediastinal silhouette is unremarkable. Tracheostomy tube. LOCATION: LP at 0608 Reported and signed by: Lenka Farrar D.O. CC: Lenore Barraza MD; Sil Farrar MD Technologist: OCTAVIO Darling Trnscrd Date/Time/By: 08/14/2019 (0608) : By: [email or web address] Orig Print D/T: S: 08/14/2019 (0611) PAGE 1 Signed Report [id number] 20:46:00* Test Item Value Reference Range Interpretation Comments GLUBED (test code = GLUBED) 97 mg/dL 74-106 N Performed by certified pulping machine operator at [facility] BASIC METABOLIC [id number] 16:02:00* Test Item Value Reference Range Interpretation Comments SODIUM (test code = NA) 143 mmol/L 136-145 N POTASSIUM (test code = K) 4.7 mmol/L 3.5-5.1 N CHLORIDE (test code = CL) 112.0 mmol/L 98-107 H CARBON DIOXIDE (test code = CO2) 23.0 mmol/L 21-32 N ANION GAP (test code = GAP) 12.7 10-20 N GLUCOSE (test code = GLU) 133 mg/dL 74-106 H BLOOD UREA NITROGEN (test code = BUN) 12 mg/dL 7-18 N GLOMERULAR FILTRATION RATE (test code = GFR) > 60 mL/min >=60 Estimated GFR by using Modified MDRD formula.Chronic kidney disease is defined as either kidney damageor GFR <60 mL/min/1.73 m2 for >3 months. CREATININE (test code = CREAT) 0.70 mg/dL 0.55-1.02 N Note change in reference range due to change in reagent. BUN/CREATININE RATIO (test code = BUN/CREA) 16.4 10-20 N CALCIUM (test code = CA) 8.6 mg/dL 8.5-10.1 N [id number] 16:02:00* Test Item Value Reference Range Interpretation Comments PHOSPHORUS (test code = PHOS) 4.3 mg/dL 2.5-4.9 N [id number] 16:02:00* Test Item Value Reference Range Interpretation Comments MAGNESIUM (test code = MAG) 2.3 mg/dL 1.8-2.4 N CALCIUM [id number] 16:02:00* Test Item Value Reference Range Interpretation Comments CALCIUM IONIZED (test code = ERICH) 1.25 mmol/L 1.12-1.32 N BASIC METABOLIC [id number] 15:34:00* Test Item Value Reference Range Interpretation Comments SODIUM (test code = NA) 143 mmol/L 136-145 N POTASSIUM (test code = K) 4.7 mmol/L 3.5-5.1 N CHLORIDE (test code = CL) 112.0 mmol/L 98-107 H CARBON DIOXIDE (test code = CO2) 23.0 mmol/L 21-32 N ANION GAP (test code = GAP) 12.7 10-20 N GLUCOSE (test code = GLU) 133 mg/dL 74-106 H BLOOD UREA NITROGEN (test code = BUN) 12 mg/dL 7-18 N GLOMERULAR FILTRATION RATE (test code = GFR) > 60 mL/min >=60 Estimated GFR by using Modified MDRD formula.Chronic kidney disease is defined as either kidney damageor GFR <60 mL/min/1.73 m2 for >3 months. CREATININE (test code = CREAT) 0.70 mg/dL 0.55-1.02 N Note change in reference range due to change in reagent. BUN/CREATININE RATIO (test code = BUN/CREA) 16.4 10-20 N CALCIUM (test code = CA) 8.6 mg/dL 8.5-10.1 N [id number] 15:34:00* Test Item Value Reference Range Interpretation Comments PHOSPHORUS (test code = PHOS) 4.3 mg/dL 2.5-4.9 N [id number] 15:34:00* Test Item Value Reference Range Interpretation Comments MAGNESIUM (test code = MAG) 2.3 mg/dL 1.8-2.4 N CALCIUM [id number] 15:34:00* Test Item Value Reference Range Interpretation Comments CALCIUM IONIZED (test code = ERICH) mmol/L 1.12-1.32 T3 [id number] 15:09:00* Test Item Value Reference Range Interpretation Comments T3 FREE (test code = T3F) 1.8 pg/mL 2.0-4.4 L Pe rformed At: [facility] [address] [id number] Kyle L MD Ph:[phone] ARTERIAL BLOOD [id number] 09:51:00* Test Item Value Reference Range Interpretation Comments ARTERIAL BLOOD GAS PH (test code = PHA) 7.33 7.35-7.45 L ARTERIAL BLOOD GAS PCO2 (test code = PCO2A) 39.5 mm Hg 35-45 N ARTERIAL BLOOD GAS PO2 (test code = PO2A) 151.5 mmHg 80-100 H BICARBONATE TOTAL HCO3 (test code = HCO3) 20.2 mmol/L 23.0-27.0 L BASE EXCESS (test code = SHASHA) -5.3 mmol/L -3.0-5.0 LL Results called to and read back by Kavita 09:51 - 08/13/2019; by RISSA ABG O2 SATURATION (test code = SATA) 98.1 % 90.0-98.0 H ABG TYPE (test code = TYPEA) Arterial FIO2 (test code = FIO2A) 35.0 ABG SITE (test code = SITEA) ARTERIAL LINE MODIFIED ALLENS (test code = MODALL) Unable CHECK PERFORMED HEMATOCRIT (test code = HCT/ABG) 33 % 35-47 L TOTAL HGB (test code = THB) 11.3 gram/dL 11.5-15.5 L HGB O2 SAT (test code = HBOSAT) 97.2 % 94.00-98.00 N CARBOXYHEMOGLOBIN (test code = HOHGBT) 0.3 %totalHg 0.5-1.5 LL Results called to and read back by Kavita :51 - 08/13/2019; by RISSA METHEMOGLOBIN (test code = METHGB) 0.6 % 0.0-1.50 N O2 CONTENT (test code = O2CT) 15.7 % vol 18.0-22.0 L CBC W/AUTO [id number] 07:10:00* Test Item Value Reference Range Interpretation Comments WHITE BLOOD CELL (test code = WBC) 10.5 K/mm3 4.5-12.5 N RED BLOOD CELL (test code = RBC) 3.20 mill/mm3 3.7-5.2 L HEMOGLOBIN (test code = HGB) 9.3 gram/dL 11.5-15.5 L HEMATOCRIT (test code = HCT) 28.8 % 36.0-46.0 L MEAN CELL VOLUME (test code = MCV) 90.0 fL 80-98 N MEAN CELL HGB (test code = MCH) 29.1 picogram 27.0-33.0 N MEAN CELL HGB CONCETRATION (test code = MCHC) 32.3 gram/dL 33.0-36. 0 L RED CELL DISTRIBUTION WIDTH (test code = RDW) 12.1 % 11.6-16. 2 N RED CELL DISTRIBUTION WIDTH SD (test code = RDW-SD) 39.8 fL 37 .0-51.0 N PLATELET COUNT (test code = PLT) 55 K/mm3 150-450 L RESULT VERIFIED BY REPEAT ANALYSIS NEUTROPHIL % (test code = NT%) 83.4 % 39.0-69.0 H IMMATURE GRANULOCYTE % (test code = IG%) 0.4 % 0.0-5.0 N LYMPHOCYTE % (test code = LY%) 10.6 % 25.0-55.0 L MONOCYTE % (test code = MO%) 4.4 % 0.0-10.0 N EOSINOPHIL % (test code = EO%) 1.0 % 0.0-5.0 N BASOPHIL % (test code = BA%) 0.2 % 0.0-1.0 N NUCLEATED RBC % (test code = NRBC%) 0.0 % 0-0 N NEUTROPHIL # (test code = NT#) 8.75 K/mm3 1.8-7.7 H IMMATURE GRANULOCYTE # (test code = IG#) 0.04 x10 3/uL 0-0.03 H LYMPHOCYTE # (test code = LY#) 1.11 K/mm3 1.0-5.0 N MONOCYTE # (test code = MO#) 0.46 K/mm3 0-0.8 N EOSINOPHIL # (test code = EO#) 0.11 K/mm3 0.0-0.5 N BASOPHIL # (test code = BA#) 0.02 K/mm3 0.0-0.2 N NUCLEATED RBC # (test code = NRBC#) 0.00 K/mm3 0.0-0.1 N MANUAL DIFF REQUIRED (test code = MDIFF) NO, ONLY SCAN NEEDED DIFFERENTIAL [id number] 07:10:00* Test Item Value Reference Range Interpretation Comments STAIN ACCEPTABILITY (test code = STN ACCEPTABLE) STAIN ACCEPTABLE POIKILOCYTOSIS (test code = POIK) 1+ TEAR DROP CELLS (test code = TEAR) 1+ PLATELET ESTIMATE (test code = PLTEST) DECREASED PLATELET MORPHOLOGY (test code = PLTMORPH) APPEAR LARGE TOTAL [id number] 07:08:00* Test Item Value Reference Range Interpretation Comments TOTAL T3 (test code = T3) 61 ng/dL 71-180 L Pe rformed At: [facility] [address] [id number] Rashawn Swenson MD Ph:[phone] THYROID STIMULATING [id number] 07:08:00* Test Item Value Reference Range Interpretation Comments THYROID STIMULATING HORMONE (test code = TSH) 7.850 uIU/mL 0.36-3.7 4 H TSH REFERENCE RANGES: EUTHYROID: 0.35 - 4.3 mIU/mL HYPO : > 5.5 mIU/mL HYPER : < 0.35 mIU/mL TSH REFLEX TO [id number] 07:08:00* Test Item Value Reference Range Interpretation Comments TSH REFLEX TO FT4 (test code = TSHREFLEX) 7.9 0.4-5.5 H - XR CHEST 1 [id number] 06:23:00 FAX: Alexandra Barrazambola [place]: B St: DIS FAX: Sil Farrar MD Name: MOJGAN CUMMINGS [facility] : 1950 Age/S: 69/F [address] [facility] Unit #: [id number] Loc: V.[address] [place] [address] Phys: Sil Farrar MD Acct: [id number] Dis Date: [id number] Status: DIS IN PHONE #: [phone] Exam Date: 08/13/2019528 FAX #: [phone] Reason: ventilator, copd EXAMS: CPT CODE: [id number] XR CHEST 1 V 21622 HISTORY: Respiratory failure, ventilator, copd TECHNIQUE: AP chest x-ray COMPARISON: Previous day. IMPRESSION: No airspace consolidation or pleural effusion. Mild right basilar subsegmental atelectasis. Normal heart size. Mediastinal silhouette is unremarkable. Tracheostomy tube. LOCATION: LP at 0623 Reported and signed by: Lenka Farrar D.O. CC: Lenore Barraza MD; Sil Farrar MD Technologist: OCTAVIO VASQUEZ JR; Abigail Darling Trnwyrd Date/Time/By: 08/13/2019 (06) : By: [email or web address] Orig Print D/T: S: 08/13/2019 (0665) PAGE 1 Signed Report - XR CHEST 1 [id number] 06:23:00 FAX: Lenore Barraza [place]: B St: ADM FAX: Sil Farrar MD Name: MOJGAN CUMMINGS [facility] : 1950 Age/S: 69/F [address] [facility] Unit #: [id number] Loc: [address] [address] Phys: Sil Farrar MD Acct: [id number] Dis Date: Status: ADM IN PHONE #: [phone] Exam Date: 08/13/2019528 FAX #: [phone] Reason: ventilator, copd EXAMS: CPT CODE: [id number] XR CHEST 1 V [id number] HISTORY: Respiratory failure, ventilator, copd AHSAN HNIQUE: AP chest x-ray COMPARISON: Previous day. I MPRESSION: No airspace consolidation or pleural effusion. Mild right basilar subsegmental atelectasis. Normal heart size. Mediastinal silhouette is unremarkable. Tracheostomy tube. LOCATION: LP at 0623 Reported and si gned by: Lenka Farrar D.O. CC: Lenore Barraza MD; Arvin Farrar MD Technologist: OCTAVIO VASQUEZ JR; Abigail Darling Trnwyrd Date/Time/By: 08/13/2019 (0623) : By: [email or web address] Orig Print D/T: S: 08/13/2019 (5456) PAGE 1 Signed Report - XR CHEST 1 [id number] 06:23:00 FAX: Lenore Barraza [place]: B St: DIS FAX: Sil Farrar MD Name: MOJGAN CUMMINGS [facility] : 1950 Age/S: 69/F [address] [facility] Unit #: [id number] Loc: V.[address] [place] [address] Phys: Sil Farrar MD Acct: [id number] Dis Date: [id number] Status: DIS IN PHONE #: [phone] Exam Date: 08/13/2019528 FAX #: [phone] Reason: ventilator, copd EXAMS: CPT CODE: [id number] XR CHEST 1 V 20092 HISTORY: Respiratory failure, ventilator, copd TECHNIQUE: AP chest x-ray COMPARISON: Previous day. IMPRESSION: No airspace consolidation or pleural effusion. Mild right basilar subsegmental atelectasis. Normal heart size. Mediastinal silhouette is unremarkable. Tracheostomy tube. LOCATION: LP at 0623 Reported and signed by: Lenka Farrar D.O. CC: Lenore Barraza MD; Sil Farrar MD Technologist: OCTAVIO VASQUEZ JR; Abigail Darling Trnwyrd Date/Time/By: 08/13/2019 (0623) : By: [email or web address] Orig Print D/T: S: 08/13/2019 (0666) PAGE 1 Signed Report BASIC METABOLIC [id number] 06:15:00* Test Item Value Reference Range Interpretation Comments SODIUM (test code = NA) 141 mmol/L 136-145 N POTASSIUM (test code = K) 4.7 mmol/L 3.5-5.1 N CHLORIDE (test code = CL) 111.0 mmol/L 98-107 H CARBON DIOXIDE (test code = CO2) 21.0 mmol/L 21-32 N ANION GAP (test code = GAP) 13.7 10-20 N GLUCOSE (test code = GLU) 110 mg/dL 74-106 H BLOOD UREA NITROGEN (test code = BUN) 14 mg/dL 7-18 N GLOMERULAR FILTRATION RATE (test code = GFR) > 60 mL/min >=60 Estimated GFR by using Modified MDRD formula.Chronic kidney disease is defined as either kidney damageor GFR <60 mL/min/1.73 m2 for >3 months. CREATININE (test code = CREAT) 0.60 mg/dL 0.55-1.02 N Note change in reference range due to change in reagent. BUN/CREATININE RATIO (test code = BUN/CREA) 21.5 10-20 H CALCIUM (test code = CA) 8.5 mg/dL 8.5-10.1 N [id number] 06:15:00* Test Item Value Reference Range Interpretation Comments PHOSPHORUS (test code = PHOS) 3.9 mg/dL 2.5-4.9 N [id number] 06:15:00* Test Item Value Reference Range Interpretation Comments MAGNESIUM (test code = MAG) 2.3 mg/dL 1.8-2.4 N BASIC METABOLIC [id number] 06:10:00* Test Item Value Reference Range Interpretation Comments SODIUM (test code = NA) 141 mmol/L 136-145 N POTASSIUM (test code = K) 4.7 mmol/L 3.5-5.1 N CHLORIDE (test code = CL) 111.0 mmol/L 98-107 H CARBON DIOXIDE (test code = CO2) mmol/L 21-32 ANION GAP (test code = GAP) 10-20 GLUCOSE (test code = GLU) mg/dL 74-106 BLOOD UREA NITROGEN (test code = BUN) mg/dL 7-18 GLOMERULAR FILTRATION RATE (test code = GFR) mL/min >=60 CREATININE (test code = CREAT) mg/dL 0.55-1.02 BUN/CREATININE RATIO (test code = BUN/CREA) 10-20 CALCIUM (test code = CA) mg/dL 8.5-10.1 [id number] 06:10:00* Test Item Value Reference Range Interpretation Comments PHOSPHORUS (test code = PHOS) mg/dL 2.5-4.9 [id number] 06:10:00* Test Item Value Reference Range Interpretation Comments MAGNESIUM (test code = MAG) mg/dL 1.8-2.4 CBC W/AUTO [id number] 06:00:00* Test Item Value Reference Range Interpretation Comments WHITE BLOOD CELL (test code = WBC) 10.5 K/mm3 4.5-12.5 N RED BLOOD CELL (test code = RBC) 3.20 mill/mm3 3.7-5.2 L HEMOGLOBIN (test code = HGB) 9.3 gram/dL 11.5-15.5 L HEMATOCRIT (test code = HCT) 28.8 % 36.0-46.0 L MEAN CELL VOLUME (test code = MCV) 90.0 fL 80-98 N MEAN CELL HGB (test code = MCH) 29.1 picogram 27.0-33.0 N MEAN CELL HGB CONCETRATION (test code = MCHC) 32.3 gram/dL 33.0-36. 0 L RED CELL DISTRIBUTION WIDTH (test code = RDW) 12.1 % 11.6-16. 2 N RED CELL DISTRIBUTION WIDTH SD (test code = RDW-SD) 39.8 fL 37 .0-51.0 N PLATELET COUNT (test code = PLT) 55 K/mm3 150-450 L RESULT VERIFIED BY REPEAT ANALYSIS NEUTROPHIL % (test code = NT%) 83.4 % 39.0-69.0 H IMMATURE GRANULOCYTE % (test code = IG%) 0.4 % 0.0-5.0 N LYMPHOCYTE % (test code = LY%) 10.6 % 25.0-55.0 L MONOCYTE % (test code = MO%) 4.4 % 0.0-10.0 N EOSINOPHIL % (test code = EO%) 1.0 % 0.0-5.0 N BASOPHIL % (test code = BA%) 0.2 % 0.0-1.0 N NUCLEATED RBC % (test code = NRBC%) 0.0 % 0-0 N NEUTROPHIL # (test code = NT#) 8.75 K/mm3 1.8-7.7 H IMMATURE GRANULOCYTE # (test code = IG#) 0.04 x10 3/uL 0-0.03 H LYMPHOCYTE # (test code = LY#) 1.11 K/mm3 1.0-5.0 N MONOCYTE # (test code = MO#) 0.46 K/mm3 0-0.8 N EOSINOPHIL # (test code = EO#) 0.11 K/mm3 0.0-0.5 N BASOPHIL # (test code = BA#) 0.02 K/mm3 0.0-0.2 N NUCLEATED RBC # (test code = NRBC#) 0.00 K/mm3 0.0-0.1 N MANUAL DIFF REQUIRED (test code = MDIFF) NO, ONLY SCAN NEEDED DIFFERENTIAL [id number] 06:00:00* Test Item Value Reference Range Interpretation Comments STAIN ACCEPTABILITY (test code = STN ACCEPTABLE) CABOT RINGS (test code = CAB) MORPHOLOGY COMMENT (test code = MOC) PLATELET ESTIMATE (test code = PLTEST) PLATELET MORPHOLOGY (test code = PLTMORPH) CBC W/AUTO [id number] 06:00:00* Test Item Value Reference Range Interpretation Comments WHITE BLOOD CELL (test code = WBC) 10.5 K/mm3 4.5-12.5 N RED BLOOD CELL (test code = RBC) 3.20 mill/mm3 3.7-5.2 L HEMOGLOBIN (test code = HGB) 9.3 gram/dL 11.5-15.5 L HEMATOCRIT (test code = HCT) 28.8 % 36.0-46.0 L MEAN CELL VOLUME (test code = MCV) 90.0 fL 80-98 N MEAN CELL HGB (test code = MCH) 29.1 picogram 27.0-33.0 N MEAN CELL HGB CONCETRATION (test code = MCHC) 32.3 gram/dL 33.0-36. 0 L RED CELL DISTRIBUTION WIDTH (test code = RDW) 12.1 % 11.6-16. 2 N RED CELL DISTRIBUTION WIDTH SD (test code = RDW-SD) 39.8 fL 37 .0-51.0 N PLATELET COUNT (test code = PLT) 55 K/mm3 150-450 L RESULT VERIFIED BY REPEAT ANALYSIS NEUTROPHIL % (test code = NT%) 83.4 % 39.0-69.0 H IMMATURE GRANULOCYTE % (test code = IG%) 0.4 % 0.0-5.0 N LYMPHOCYTE % (test code = LY%) 10.6 % 25.0-55.0 L MONOCYTE % (test code = MO%) 4.4 % 0.0-10.0 N EOSINOPHIL % (test code = EO%) 1.0 % 0.0-5.0 N BASOPHIL % (test code = BA%) 0.2 % 0.0-1.0 N NUCLEATED RBC % (test code = NRBC%) 0.0 % 0-0 N NEUTROPHIL # (test code = NT#) 8.75 K/mm3 1.8-7.7 H IMMATURE GRANULOCYTE # (test code = IG#) 0.04 x10 3/uL 0-0.03 H LYMPHOCYTE # (test code = LY#) 1.11 K/mm3 1.0-5.0 N MONOCYTE # (test code = MO#) 0.46 K/mm3 0-0.8 N EOSINOPHIL # (test code = EO#) 0.11 K/mm3 0.0-0.5 N BASOPHIL # (test code = BA#) 0.02 K/mm3 0.0-0.2 N NUCLEATED RBC # (test code = NRBC#) 0.00 K/mm3 0.0-0.1 N MANUAL DIFF REQUIRED (test code = MDIFF) NO, ONLY SCAN NEEDED DIFFERENTIAL [id number] 06:00:00* Test Item Value Reference Range Interpretation Comments STAIN ACCEPTABILITY (test code = STN ACCEPTABLE) CABOT RINGS (test code = CAB) MORPHOLOGY COMMENT (test code = MOC) PLATELET ESTIMATE (test code = PLTEST) PLATELET MORPHOLOGY (test code = PLTMORPH) CBC W/AUTO [id number] 06:00:00* Test Item Value Reference Range Interpretation Comments WHITE BLOOD CELL (test code = WBC) 10.5 K/mm3 4.5-12.5 N RED BLOOD CELL (test code = RBC) 3.20 mill/mm3 3.7-5.2 L HEMOGLOBIN (test code = HGB) 9.3 gram/dL 11.5-15.5 L HEMATOCRIT (test code = HCT) 28.8 % 36.0-46.0 L MEAN CELL VOLUME (test code = MCV) 90.0 fL 80-98 N MEAN CELL HGB (test code = MCH) 29.1 picogram 27.0-33.0 N MEAN CELL HGB CONCETRATION (test code = MCHC) 32.3 gram/dL 33.0-36. 0 L RED CELL DISTRIBUTION WIDTH (test code = RDW) 12.1 % 11.6-16. 2 N RED CELL DISTRIBUTION WIDTH SD (test code = RDW-SD) 39.8 fL 37 .0-51.0 N PLATELET COUNT (test code = PLT) 55 K/mm3 150-450 L RESULT VERIFIED BY REPEAT ANALYSIS NEUTROPHIL % (test code = NT%) 83.4 % 39.0-69.0 H IMMATURE GRANULOCYTE % (test code = IG%) 0.4 % 0.0-5.0 N LYMPHOCYTE % (test code = LY%) 10.6 % 25.0-55.0 L MONOCYTE % (test code = MO%) 4.4 % 0.0-10.0 N EOSINOPHIL % (test code = EO%) 1.0 % 0.0-5.0 N BASOPHIL % (test code = BA%) 0.2 % 0.0-1.0 N NUCLEATED RBC % (test code = NRBC%) 0.0 % 0-0 N NEUTROPHIL # (test code = NT#) 8.75 K/mm3 1.8-7.7 H IMMATURE GRANULOCYTE # (test code = IG#) 0.04 x10 3/uL 0-0.03 H LYMPHOCYTE # (test code = LY#) 1.11 K/mm3 1.0-5.0 N MONOCYTE # (test code = MO#) 0.46 K/mm3 0-0.8 N EOSINOPHIL # (test code = EO#) 0.11 K/mm3 0.0-0.5 N BASOPHIL # (test code = BA#) 0.02 K/mm3 0.0-0.2 N NUCLEATED RBC # (test code = NRBC#) 0.00 K/mm3 0.0-0.1 N MANUAL DIFF REQUIRED (test code = MDIFF) NO, ONLY SCAN NEEDED DIFFERENTIAL [id number] 06:00:00* Test Item Value Reference Range Interpretation Comments STAIN ACCEPTABILITY (test code = STN ACCEPTABLE) MORPHOLOGY COMMENT (test code = MOC) PLATELET ESTIMATE (test code = PLTEST) PLATELET MORPHOLOGY (test code = PLTMORPH) CBC W/AUTO [id number] 06:00:00* Test Item Value Reference Range Interpretation Comments WHITE BLOOD CELL (test code = WBC) 10.5 K/mm3 4.5-12.5 N RED BLOOD CELL (test code = RBC) 3.20 mill/mm3 3.7-5.2 L HEMOGLOBIN (test code = HGB) 9.3 gram/dL 11.5-15.5 L HEMATOCRIT (test code = HCT) 28.8 % 36.0-46.0 L MEAN CELL VOLUME (test code = MCV) 90.0 fL 80-98 N MEAN CELL HGB (test code = MCH) 29.1 picogram 27.0-33.0 N MEAN CELL HGB CONCETRATION (test code = MCHC) 32.3 gram/dL 33.0-36. 0 L RED CELL DISTRIBUTION WIDTH (test code = RDW) 12.1 % 11.6-16. 2 N RED CELL DISTRIBUTION WIDTH SD (test code = RDW-SD) 39.8 fL 37 .0-51.0 N PLATELET COUNT (test code = PLT) 55 K/mm3 150-450 L RESULT VERIFIED BY REPEAT ANALYSIS NEUTROPHIL % (test code = NT%) 83.4 % 39.0-69.0 H IMMATURE GRANULOCYTE % (test code = IG%) 0.4 % 0.0-5.0 N LYMPHOCYTE % (test code = LY%) 10.6 % 25.0-55.0 L MONOCYTE % (test code = MO%) 4.4 % 0.0-10.0 N EOSINOPHIL % (test code = EO%) 1.0 % 0.0-5.0 N BASOPHIL % (test code = BA%) 0.2 % 0.0-1.0 N NUCLEATED RBC % (test code = NRBC%) 0.0 % 0-0 N NEUTROPHIL # (test code = NT#) 8.75 K/mm3 1.8-7.7 H IMMATURE GRANULOCYTE # (test code = IG#) 0.04 x10 3/uL 0-0.03 H LYMPHOCYTE # (test code = LY#) 1.11 K/mm3 1.0-5.0 N MONOCYTE # (test code = MO#) 0.46 K/mm3 0-0.8 N EOSINOPHIL # (test code = EO#) 0.11 K/mm3 0.0-0.5 N BASOPHIL # (test code = BA#) 0.02 K/mm3 0.0-0.2 N NUCLEATED RBC # (test code = NRBC#) 0.00 K/mm3 0.0-0.1 N MANUAL DIFF REQUIRED (test code = MDIFF) NO, ONLY SCAN NEEDED DIFFERENTIAL [id number] 06:00:00* Test Item Value Reference Range Interpretation Comments STAIN ACCEPTABILITY (test code = STN ACCEPTABLE) CABOT RINGS (test code = CAB) MORPHOLOGY COMMENT (test code = MOC) PLATELET ESTIMATE (test code = PLTEST) PLATELET MORPHOLOGY (test code = PLTMORPH) BASIC METABOLIC [id number] 01:19:00* Test Item Value Reference Range Interpretation Comments SODIUM (test code = NA) 140 mmol/L 136-145 N POTASSIUM (test code = K) 4.8 mmol/L 3.5-5.1 N CHLORIDE (test code = CL) 111.0 mmol/L 98-107 H CARBON DIOXIDE (test code = CO2) 21.0 mmol/L 21-32 N ANION GAP (test code = GAP) 12.8 10-20 N GLUCOSE (test code = GLU) 123 mg/dL 74-106 H BLOOD UREA NITROGEN (test code = BUN) 13 mg/dL 7-18 N GLOMERULAR FILTRATION RATE (test code = GFR) > 60 mL/min >=60 Estimated GFR by using Modified MDRD formula.Chronic kidney disease is defined as either kidney damageor GFR <60 mL/min/1.73 m2 for >3 months. CREATININE (test code = CREAT) 0.50 mg/dL 0.55-1.02 L Note change in reference range due to change in reagent. BUN/CREATININE RATIO (test code = BUN/CREA) 26.7 10-20 H CALCIUM (test code = CA) 8.6 mg/dL 8.5-10.1 N [id number] 01:19:00* Test Item Value Reference Range Interpretation Comments PHOSPHORUS (test code = PHOS) 4.0 mg/dL 2.5-4.9 N [id number] 01:19:00* Test Item Value Reference Range Interpretation Comments MAGNESIUM (test code = MAG) 2.1 mg/dL 1.8-2.4 N [id number] 01:04:00* Test Item Value Reference Range Interpretation Comments GLUBED (test code = GLUBED) 109 mg/dL 74-106 H Performed by certified pulping machine operator at [facility] BASIC METABOLIC [id number] 22:00:00* Test Item Value Reference Range Interpretation Comments SODIUM (test code = NA) 142 mmol/L 136-145 N POTASSIUM (test code = K) 4.8 mmol/L 3.5-5.1 RE SULT VERIFIED BY REPEAT ANALYSIS CHLORIDE (test code = CL) 112.0 mmol/L 98-107 H CARBON DIOXIDE (test code = CO2) 22.0 mmol/L 21-32 N ANION GAP (test code = GAP) 12.8 10-20 N GLUCOSE (test code = GLU) 110 mg/dL 74-106 H BLOOD UREA NITROGEN (test code = BUN) 14 mg/dL 7-18 N GLOMERULAR FILTRATION RATE (test code = GFR) > 60 mL/min >=60 Estimated GFR by using Modified MDRD formula.Chronic kidney disease is defined as either kidney damageor GFR <60 mL/min/1.73 m2 for >3 months. CREATININE (test code = CREAT) 0.40 mg/dL 0.55-1.02 L Note change in reference range due to change in reagent. BUN/CREATININE RATIO (test code = BUN/CREA) 32.2 10-20 H CALCIUM (test code = CA) 8.5 mg/dL 8.5-10.1 N [id number] 22:00:00* Test Item Value Reference Range Interpretation Comments PHOSPHORUS (test code = PHOS) 3.4 mg/dL 2.5-4.9 N [id number] 22:00:00* Test Item Value Reference Range Interpretation Comments MAGNESIUM (test code = MAG) 2.6 mg/dL 1.8-2.4 H BASIC METABOLIC [id number] 21:53:00* Test Item Value Reference Range Interpretation Comments SODIUM (test code = NA) mmol/L 136-145 POTASSIUM (test code = K) mmol/L 3.5-5.1 CHLORIDE (test code = CL) mmol/L 98-107 CARBON DIOXIDE (test code = CO2) 22.0 mmol/L 21-32 N ANION GAP (test code = GAP) 10-20 GLUCOSE (test code = GLU) 110 mg/dL 74-106 H BLOOD UREA NITROGEN (test code = BUN) 14 mg/dL 7-18 N GLOMERULAR FILTRATION RATE (test code = GFR) > 60 mL/min >=60 Estimated GFR by using Modified MDRD formula.Chronic kidney disease is defined as either kidney damageor GFR <60 mL/min/1.73 m2 for >3 months. CREATININE (test code = CREAT) 0.40 mg/dL 0.55-1.02 L Note change in reference range due to change in reagent. BUN/CREATININE RATIO (test code = BUN/CREA) 32.2 10-20 H CALCIUM (test code = CA) 8.5 mg/dL 8.5-10.1 N [id number] 21:53:00* Test Item Value Reference Range Interpretation Comments PHOSPHORUS (test code = PHOS) 3.4 mg/dL 2.5-4.9 N [id number] 21:53:00* Test Item Value Reference Range Interpretation Comments MAGNESIUM (test code = MAG) 2.6 mg/dL 1.8-2.4 H [id number] 20:07:00* Test Item Value Reference Range Interpretation Comments GLUBED (test code = GLUBED) 100 mg/dL 74-106 N Performed by certified pulping machine operator at [facility] [id number] 17:59:00* Test Item Value Reference Range Interpretation Comments GLUBED (test code = GLUBED) 108 mg/dL 74-106 H Performed by certified pulping machine operator at [facility] BASIC METABOLIC [id number] 17:00:00* Test Item Value Reference Range Interpretation Comments SODIUM (test code = NA) 144 mmol/L 136-145 N POTASSIUM (test code = K) 3.1 mmol/L 3.5-5.1 L CHLORIDE (test code = CL) 112.0 mmol/L 98-107 H CARBON DIOXIDE (test code = CO2) 22.0 mmol/L 21-32 N ANION GAP (test code = GAP) 13.1 10-20 N GLUCOSE (test code = GLU) 133 mg/dL 74-106 H BLOOD UREA NITROGEN (test code = BUN) 16 mg/dL 7-18 N GLOMERULAR FILTRATION RATE (test code = GFR) > 60 mL/min >=60 Estimated GFR by using Modified MDRD formula.Chronic kidney disease is defined as either kidney damageor GFR <60 mL/min/1.73 m2 for >3 months. CREATININE (test code = CREAT) 0.40 mg/dL 0.55-1.02 L Note change in reference range due to change in reagent. BUN/CREATININE RATIO (test code = BUN/CREA) 40.2 10-20 H CALCIUM (test code = CA) 8.6 mg/dL 8.5-10.1 N [id number] 17:00:00* Test Item Value Reference Range Interpretation Comments PHOSPHORUS (test code = PHOS) 1.8 mg/dL 2.5-4.9 L [id number] 17:00:00* Test Item Value Reference Range Interpretation Comments MAGNESIUM (test code = MAG) 1.9 mg/dL 1.8-2.4 N BASIC METABOLIC [id number] 16:56:00* Test Item Value Reference Range Interpretation Comments SODIUM (test code = NA) 144 mmol/L 136-145 N POTASSIUM (test code = K) 3.1 mmol/L 3.5-5.1 L CHLORIDE (test code = CL) 112.0 mmol/L 98-107 H CARBON DIOXIDE (test code = CO2) mmol/L 21-32 ANION GAP (test code = GAP) 10-20 GLUCOSE (test code = GLU) mg/dL 74-106 BLOOD UREA NITROGEN (test code = BUN) mg/dL 7-18 GLOMERULAR FILTRATION RATE (test code = GFR) mL/min >=60 CREATININE (test code = CREAT) mg/dL 0.55-1.02 BUN/CREATININE RATIO (test code = BUN/CREA) 10-20 CALCIUM (test code = CA) mg/dL 8.5-10.1 [id number] 16:56:00* Test Item Value Reference Range Interpretation Comments PHOSPHORUS (test code = PHOS) mg/dL 2.5-4.9 [id number] 16:56:00* Test Item Value Reference Range Interpretation Comments MAGNESIUM (test code = MAG) mg/dL 1.8-2.4 CBC W/AUTO [id number] 16:35:00* Test Item Value Reference Range Interpretation Comments WHITE BLOOD CELL (test code = WBC) 8.9 K/mm3 4.5-12.5 N RED BLOOD CELL (test code = RBC) 3.22 mill/mm3 3.7-5.2 L HEMOGLOBIN (test code = HGB) 9.7 gram/dL 11.5-15.5 L HEMATOCRIT (test code = HCT) 28.7 % 36.0-46.0 L MEAN CELL VOLUME (test code = MCV) 89.1 fL 80-98 N MEAN CELL HGB (test code = MCH) 30.1 picogram 27.0-33.0 N MEAN CELL HGB CONCETRATION (test code = MCHC) 33.8 gram/dL 33.0-36. 0 N RED CELL DISTRIBUTION WIDTH (test code = RDW) 11.8 % 11.6-16. 2 N RED CELL DISTRIBUTION WIDTH SD (test code = RDW-SD) 38.0 fL 37 .0-51.0 N PLATELET COUNT (test code = PLT) 35 K/mm3 150-450 LL Results called to [id number] by V.[email or web address] 08/12/19 1531Critical results verified and read back by Nurse? Y NEUTROPHIL % (test code = NT%) 84.1 % 39.0-69.0 H IMMATURE GRANULOCYTE % (test code = IG%) 0.3 % 0.0-5.0 N LYMPHOCYTE % (test code = LY%) 9.5 % 25.0-55.0 L MONOCYTE % (test code = MO%) 4.9 % 0.0-10.0 N EOSINOPHIL % (test code = EO%) 0.9 % 0.0-5.0 N BASOPHIL % (test code = BA%) 0.3 % 0.0-1.0 N NUCLEATED RBC % (test code = NRBC%) 0.0 % 0-0 N NEUTROPHIL # (test code = NT#) 7.44 K/mm3 1.8-7.7 N IMMATURE GRANULOCYTE # (test code = IG#) 0.03 x10 3/uL 0-0.03 N LYMPHOCYTE # (test code = LY#) 0.84 K/mm3 1.0-5.0 L MONOCYTE # (test code = MO#) 0.43 K/mm3 0-0.8 N EOSINOPHIL # (test code = EO#) 0.08 K/mm3 0.0-0.5 N BASOPHIL # (test code = BA#) 0.03 K/mm3 0.0-0.2 N NUCLEATED RBC # (test code = NRBC#) 0.00 K/mm3 0.0-0.1 N MANUAL DIFF REQUIRED (test code = MDIFF) NO, ONLY SCAN NEEDED DIFFERENTIAL [id number] 16:35:00* Test Item Value Reference Range Interpretation Comments STAIN ACCEPTABILITY (test code = STN ACCEPTABLE) STAIN ACCEPTABLE MORPHOLOGY COMMENT (test code = MOC) NORMAL PLATELET ESTIMATE (test code = PLTEST) DECREASED PLATELET MORPHOLOGY (test code = PLTMORPH) NORMAL [id number] 16:17:00* Test Item Value Reference Range Interpretation Comments GLUBED (test code = GLUBED) 107 mg/dL 74-106 H Performed by certified pulping machine operator at [facility] CBC W/AUTO [id number] 15:31:00* Test Item Value Reference Range Interpretation Comments WHITE BLOOD CELL (test code = WBC) 8.9 K/mm3 4.5-12.5 N RED BLOOD CELL (test code = RBC) 3.22 mill/mm3 3.7-5.2 L HEMOGLOBIN (test code = HGB) 9.7 gram/dL 11.5-15.5 L HEMATOCRIT (test code = HCT) 28.7 % 36.0-46.0 L MEAN CELL VOLUME (test code = MCV) 89.1 fL 80-98 N MEAN CELL HGB (test code = MCH) 30.1 picogram 27.0-33.0 N MEAN CELL HGB CONCETRATION (test code = MCHC) 33.8 gram/dL 33.0-36. 0 N RED CELL DISTRIBUTION WIDTH (test code = RDW) 11.8 % 11.6-16. 2 N RED CELL DISTRIBUTION WIDTH SD (test code = RDW-SD) 38.0 fL 37 .0-51.0 N PLATELET COUNT (test code = PLT) 35 K/mm3 150-450 LL Results called to [id number] by [email or web address] 08/12/19 1531Critical results verified and read back by Nurse? Y NEUTROPHIL % (test code = NT%) 84.1 % 39.0-69.0 H IMMATURE GRANULOCYTE % (test code = IG%) 0.3 % 0.0-5.0 N LYMPHOCYTE % (test code = LY%) 9.5 % 25.0-55.0 L MONOCYTE % (test code = MO%) 4.9 % 0.0-10.0 N EOSINOPHIL % (test code = EO%) 0.9 % 0.0-5.0 N BASOPHIL % (test code = BA%) 0.3 % 0.0-1.0 N NUCLEATED RBC % (test code = NRBC%) 0.0 % 0-0 N NEUTROPHIL # (test code = NT#) 7.44 K/mm3 1.8-7.7 N IMMATURE GRANULOCYTE # (test code = IG#) 0.03 x10 3/uL 0-0.03 N LYMPHOCYTE # (test code = LY#) 0.84 K/mm3 1.0-5.0 L MONOCYTE # (test code = MO#) 0.43 K/mm3 0-0.8 N EOSINOPHIL # (test code = EO#) 0.08 K/mm3 0.0-0.5 N BASOPHIL # (test code = BA#) 0.03 K/mm3 0.0-0.2 N NUCLEATED RBC # (test code = NRBC#) 0.00 K/mm3 0.0-0.1 N MANUAL DIFF REQUIRED (test code = MDIFF) NO, ONLY SCAN NEEDED DIFFERENTIAL [id number] 15:31:00* Test Item Value Reference Range Interpretation Comments STAIN ACCEPTABILITY (test code = STN ACCEPTABLE) CABOT RINGS (test code = CAB) MORPHOLOGY COMMENT (test code = MOC) PLATELET ESTIMATE (test code = PLTEST) PLATELET MORPHOLOGY (test code = PLTMORPH) CBC W/AUTO [id number] 15:31:00* Test Item Value Reference Range Interpretation Comments WHITE BLOOD CELL (test code = WBC) 8.9 K/mm3 4.5-12.5 N RED BLOOD CELL (test code = RBC) 3.22 mill/mm3 3.7-5.2 L HEMOGLOBIN (test code = HGB) 9.7 gram/dL 11.5-15.5 L HEMATOCRIT (test code = HCT) 28.7 % 36.0-46.0 L MEAN CELL VOLUME (test code = MCV) 89.1 fL 80-98 N MEAN CELL HGB (test code = MCH) 30.1 picogram 27.0-33.0 N MEAN CELL HGB CONCETRATION (test code = MCHC) 33.8 gram/dL 33.0-36. 0 N RED CELL DISTRIBUTION WIDTH (test code = RDW) 11.8 % 11.6-16. 2 N RED CELL DISTRIBUTION WIDTH SD (test code = RDW-SD) 38.0 fL 37 .0-51.0 N PLATELET COUNT (test code = PLT) 35 K/mm3 150-450 LL Results called to [id number] by [email or web address] 08/12/19 1531Critical results verified and read back by Nurse? Y NEUTROPHIL % (test code = NT%) 84.1 % 39.0-69.0 H IMMATURE GRANULOCYTE % (test code = IG%) 0.3 % 0.0-5.0 N LYMPHOCYTE % (test code = LY%) 9.5 % 25.0-55.0 L MONOCYTE % (test code = MO%) 4.9 % 0.0-10.0 N EOSINOPHIL % (test code = EO%) 0.9 % 0.0-5.0 N BASOPHIL % (test code = BA%) 0.3 % 0.0-1.0 N NUCLEATED RBC % (test code = NRBC%) 0.0 % 0-0 N NEUTROPHIL # (test code = NT#) 7.44 K/mm3 1.8-7.7 N IMMATURE GRANULOCYTE # (test code = IG#) 0.03 x10 3/uL 0-0.03 N LYMPHOCYTE # (test code = LY#) 0.84 K/mm3 1.0-5.0 L MONOCYTE # (test code = MO#) 0.43 K/mm3 0-0.8 N EOSINOPHIL # (test code = EO#) 0.08 K/mm3 0.0-0.5 N BASOPHIL # (test code = BA#) 0.03 K/mm3 0.0-0.2 N NUCLEATED RBC # (test code = NRBC#) 0.00 K/mm3 0.0-0.1 N MANUAL DIFF REQUIRED (test code = MDIFF) NO, ONLY SCAN NEEDED DIFFERENTIAL [id number] 15:31:00* Test Item Value Reference Range Interpretation Comments STAIN ACCEPTABILITY (test code = STN ACCEPTABLE) CABOT RINGS (test code = CAB) MORPHOLOGY COMMENT (test code = MOC) PLATELET ESTIMATE (test code = PLTEST) PLATELET MORPHOLOGY (test code = PLTMORPH) CBC W/AUTO [id number] 15:31:00* Test Item Value Reference Range Interpretation Comments WHITE BLOOD CELL (test code = WBC) 8.9 K/mm3 4.5-12.5 N RED BLOOD CELL (test code = RBC) 3.22 mill/mm3 3.7-5.2 L HEMOGLOBIN (test code = HGB) 9.7 gram/dL 11.5-15.5 L HEMATOCRIT (test code = HCT) 28.7 % 36.0-46.0 L MEAN CELL VOLUME (test code = MCV) 89.1 fL 80-98 N MEAN CELL HGB (test code = MCH) 30.1 picogram 27.0-33.0 N MEAN CELL HGB CONCETRATION (test code = MCHC) 33.8 gram/dL 33.0-36. 0 N RED CELL DISTRIBUTION WIDTH (test code = RDW) 11.8 % 11.6-16. 2 N RED CELL DISTRIBUTION WIDTH SD (test code = RDW-SD) 38.0 fL 37 .0-51.0 N PLATELET COUNT (test code = PLT) 35 K/mm3 150-450 LL Results called to [id number] by V.[email or web address] 08/12/19 1531Critical results verified and read back by Nurse? Y NEUTROPHIL % (test code = NT%) 84.1 % 39.0-69.0 H IMMATURE GRANULOCYTE % (test code = IG%) 0.3 % 0.0-5.0 N LYMPHOCYTE % (test code = LY%) 9.5 % 25.0-55.0 L MONOCYTE % (test code = MO%) 4.9 % 0.0-10.0 N EOSINOPHIL % (test code = EO%) 0.9 % 0.0-5.0 N BASOPHIL % (test code = BA%) 0.3 % 0.0-1.0 N NUCLEATED RBC % (test code = NRBC%) 0.0 % 0-0 N NEUTROPHIL # (test code = NT#) 7.44 K/mm3 1.8-7.7 N IMMATURE GRANULOCYTE # (test code = IG#) 0.03 x10 3/uL 0-0.03 N LYMPHOCYTE # (test code = LY#) 0.84 K/mm3 1.0-5.0 L MONOCYTE # (test code = MO#) 0.43 K/mm3 0-0.8 N EOSINOPHIL # (test code = EO#) 0.08 K/mm3 0.0-0.5 N BASOPHIL # (test code = BA#) 0.03 K/mm3 0.0-0.2 N NUCLEATED RBC # (test code = NRBC#) 0.00 K/mm3 0.0-0.1 N MANUAL DIFF REQUIRED (test code = MDIFF) NO, ONLY SCAN NEEDED DIFFERENTIAL [id number] 15:31:00* Test Item Value Reference Range Interpretation Comments STAIN ACCEPTABILITY (test code = STN ACCEPTABLE) MORPHOLOGY COMMENT (test code = MOC) PLATELET ESTIMATE (test code = PLTEST) PLATELET MORPHOLOGY (test code = PLTMORPH) CBC W/AUTO [id number] 15:31:00* Test Item Value Reference Range Interpretation Comments WHITE BLOOD CELL (test code = WBC) 8.9 K/mm3 4.5-12.5 N RED BLOOD CELL (test code = RBC) 3.22 mill/mm3 3.7-5.2 L HEMOGLOBIN (test code = HGB) 9.7 gram/dL 11.5-15.5 L HEMATOCRIT (test code = HCT) 28.7 % 36.0-46.0 L MEAN CELL VOLUME (test code = MCV) 89.1 fL 80-98 N MEAN CELL HGB (test code = MCH) 30.1 picogram 27.0-33.0 N MEAN CELL HGB CONCETRATION (test code = MCHC) 33.8 gram/dL 33.0-36. 0 N RED CELL DISTRIBUTION WIDTH (test code = RDW) 11.8 % 11.6-16. 2 N RED CELL DISTRIBUTION WIDTH SD (test code = RDW-SD) 38.0 fL 37 .0-51.0 N PLATELET COUNT (test code = PLT) 35 K/mm3 150-450 LL Results called to [id number] by [email or web address] 08/12/19 1531Critical results verified and read back by Nurse? Y NEUTROPHIL % (test code = NT%) 84.1 % 39.0-69.0 H IMMATURE GRANULOCYTE % (test code = IG%) 0.3 % 0.0-5.0 N LYMPHOCYTE % (test code = LY%) 9.5 % 25.0-55.0 L MONOCYTE % (test code = MO%) 4.9 % 0.0-10.0 N EOSINOPHIL % (test code = EO%) 0.9 % 0.0-5.0 N BASOPHIL % (test code = BA%) 0.3 % 0.0-1.0 N NUCLEATED RBC % (test code = NRBC%) 0.0 % 0-0 N NEUTROPHIL # (test code = NT#) 7.44 K/mm3 1.8-7.7 N IMMATURE GRANULOCYTE # (test code = IG#) 0.03 x10 3/uL 0-0.03 N LYMPHOCYTE # (test code = LY#) 0.84 K/mm3 1.0-5.0 L MONOCYTE # (test code = MO#) 0.43 K/mm3 0-0.8 N EOSINOPHIL # (test code = EO#) 0.08 K/mm3 0.0-0.5 N BASOPHIL # (test code = BA#) 0.03 K/mm3 0.0-0.2 N NUCLEATED RBC # (test code = NRBC#) 0.00 K/mm3 0.0-0.1 N MANUAL DIFF REQUIRED (test code = MDIFF) NO, ONLY SCAN NEEDED DIFFERENTIAL [id number] 15:31:00* Test Item Value Reference Range Interpretation Comments STAIN ACCEPTABILITY (test code = STN ACCEPTABLE) CABOT RINGS (test code = CAB) MORPHOLOGY COMMENT (test code = MOC) PLATELET ESTIMATE (test code = PLTEST) PLATELET MORPHOLOGY (test code = PLTMORPH) TOTAL [id number] 14:18:00* Test Item Value Reference Range Interpretation Comments TOTAL T3 (test code = T3) THYROID STIMULATING [id number] 14:18:00* Test Item Value Reference Range Interpretation Comments THYROID STIMULATING HORMONE (test code = TSH) 7.850 uIU/mL 0.36-3.7 4 H TSH REFERENCE RANGES: EUTHYROID: 0.35 - 4.3 mIU/mL HYPO : > 5.5 mIU/mL HYPER : < 0.35 mIU/mL TSH REFLEX TO [id number] 14:18:00* Test Item Value Reference Range Interpretation Comments TSH REFLEX TO FT4 (test code = TSHREFLEX) 7.9 0.4-5.5 H [id number] 14:13:00* Test Item Value Reference Range Interpretation Comments GLUBED (test code = GLUBED) 115 mg/dL 74-106 H Performed by certified pulping machine operator at [facility] BASIC METABOLIC [id number] 12:40:00* Test Item Value Reference Range Interpretation Comments SODIUM (test code = NA) 141 mmol/L 136-145 N POTASSIUM (test code = K) 2.8 mmol/L 3.5-5.1 LL Re sults called to [id number] by VREYNA 08/12/19 1238Critical results verified and read back by Nurse? CHLORIDE (test code = CL) 110.0 mmol/L 98-107 H CARBON DIOXIDE (test code = CO2) 22.0 mmol/L 21-32 N ANION GAP (test code = GAP) 11.8 10-20 N GLUCOSE (test code = GLU) 135 mg/dL 74-106 H BLOOD UREA NITROGEN (test code = BUN) 19 mg/dL 7-18 H GLOMERULAR FILTRATION RATE (test code = GFR) > 60 mL/min >=60 Estimated GFR by using Modified MDRD formula.Chronic kidney disease is defined as either kidney damageor GFR <60 mL/min/1.73 m2 for >3 months. CREATININE (test code = CREAT) 0.40 mg/dL 0.55-1.02 L Note change in reference range due to change in reagent. BUN/CREATININE RATIO (test code = BUN/CREA) 43.3 10-20 H CALCIUM (test code = CA) 9.0 mg/dL 8.5-10.1 N [id number] 12:40:00* Test Item Value Reference Range Interpretation Comments PHOSPHORUS (test code = PHOS) 2.3 mg/dL 2.5-4.9 L [id number] 12:40:00* Test Item Value Reference Range Interpretation Comments MAGNESIUM (test code = MAG) 2.0 mg/dL 1.8-2.4 N LACTIC [id number] 12:33:00* Test Item Value Reference Range Interpretation Comments LACTIC ACID (test code = LACT) 0.9 mmol/L 0.4-1.9 N [id number] 12:26:00* Test Item Value Reference Range Interpretation Comments GLUBED (test code = GLUBED) 121 mg/dL 74-106 H Performed by certified pulping machine operator at [facility] [id number] 11:26:00* Test Item Value Reference Range Interpretation Comments GLUBED (test code = GLUBED) 111 mg/dL 74-106 H Performed by certified pulping machine operator at [facility] [id number] 09:26:00* Test Item Value Reference Range Interpretation Comments GLUBED (test code = GLUBED) 159 mg/dL 74-106 H Performed by certified pulping machine operator at [facility] LACTIC [id number] 08:41:00* Test Item Value Reference Range Interpretation Comments LACTIC ACID (test code = LACT) 2.0 mmol/L 0.4-1.9 H Results called to [id number] by CHRISTIE 08/12/19 0841Critical results verified and read back by Nurse? Y BASIC METABOLIC [id number] 08:38:00* Test Item Value Reference Range Interpretation Comments SODIUM (test code = NA) 141 mmol/L 136-145 N POTASSIUM (test code = K) 3.7 mmol/L 3.5-5.1 N CHLORIDE (test code = CL) 108.0 mmol/L 98-107 H CARBON DIOXIDE (test code = CO2) 25.0 mmol/L 21-32 N ANION GAP (test code = GAP) 11.7 10-20 N GLUCOSE (test code = GLU) 72 mg/dL 74-106 L BLOOD UREA NITROGEN (test code = BUN) 18 mg/dL 7-18 N GLOMERULAR FILTRATION RATE (test code = GFR) > 60 mL/min >=60 Estimated GFR by using Modified MDRD formula.Chronic kidney disease is defined as either kidney damageor GFR <60 mL/min/1.73 m2 for >3 months. CREATININE (test code = CREAT) 0.60 mg/dL 0.55-1.02 N Note change in reference range due to change in reagent. BUN/CREATININE RATIO (test code = BUN/CREA) 32.1 10-20 H CALCIUM (test code = CA) 8.9 mg/dL 8.5-10.1 N [id number] 08:38:00* Test Item Value Reference Range Interpretation Comments PHOSPHORUS (test code = PHOS) 4.2 mg/dL 2.5-4.9 N [id number] 08:38:00* Test Item Value Reference Range Interpretation Comments MAGNESIUM (test code = MAG) 2.2 mg/dL 1.8-2.4 N BASIC METABOLIC [id number] 08:30:00* Test Item Value Reference Range Interpretation Comments SODIUM (test code = NA) 141 mmol/L 136-145 N POTASSIUM (test code = K) 3.7 mmol/L 3.5-5.1 N CHLORIDE (test code = CL) 108.0 mmol/L 98-107 H CARBON DIOXIDE (test code = CO2) mmol/L 21-32 ANION GAP (test code = GAP) 10-20 GLUCOSE (test code = GLU) mg/dL 74-106 BLOOD UREA NITROGEN (test code = BUN) mg/dL 7-18 GLOMERULAR FILTRATION RATE (test code = GFR) mL/min >=60 CREATININE (test code = CREAT) mg/dL 0.55-1.02 BUN/CREATININE RATIO (test code = BUN/CREA) 10-20 CALCIUM (test code = CA) mg/dL 8.5-10.1 [id number] 08:30:00* Test Item Value Reference Range Interpretation Comments PHOSPHORUS (test code = PHOS) mg/dL 2.5-4.9 [id number] 08:30:00* Test Item Value Reference Range Interpretation Comments MAGNESIUM (test code = MAG) mg/dL 1.8-2.4 [id number] 08:05:00* Test Item Value Reference Range Interpretation Comments GLUBED (test code = GLUBED) 65 mg/dL 74-106 L Performed by certified pulping machine operator at [facility] [id number] 07:26:00* Test Item Value Reference Range Interpretation Comments GLUBED (test code = GLUBED) 66 mg/dL 74-106 L Performed by certified pulping machine operator at [facility] - XR CHEST 1 [id number] 07:23:00 FAX: Lenore Barraza [place]: B St: DIS FAX: Sil Farrar MD Name: MOJGAN CUMMINGS [facility] : 1950 Age/S: 69/F [address] [facility] Unit #: [id number] Loc: V.2078 [place] [address] Phys: Sil Farrar MD Acct: [id number] Dis Date: [id number] Status: DIS IN PHONE #: [phone] Exam Date: 08/12/2019 0500 FAX #: [phone] Reason: ventilator, copd EXAMS: CPT CODE: [id number] XR CHEST 1 V 79735 HISTORY: Respiratory failure, ventilator, copd TECHNIQUE: AP chest x-ray COMPARISON: Previous day. IMPRESSION: No airspace consolidation or pleural effusion. Normal heart size. Mediastinal silhouette is unremarkable. Tracheostomy tube. LOCATION: LP at 0723 Reported and signed by: Lenka Farrar D.O. CC: Lenore Luna MD; Sil Farrar MD Technologist: Wicho De Luna(R); RT CISCO(R) Trnscrd Date/Time/By: 08/12/2019 (722 ) : By: [email or web address] Orig Print D/T: S: 08/12/2019 (0726) PAGE 1 Signed Report - XR CHEST 1 [id number] 07:23:00 FAX: Lenore Barraza [place]: B St: ADM FAX: Sil Farrar MD Name: MOJGAN CUMMINGS [facility] : 1950 Age/S: 69/F [address] Unit #: [id number] [place] V.[place] [address] Phys: Sil Farrar MD Acct: [id number] Dis Date: Status: ADM IN PHONE #: [phone] Exam Date: 08/12/2019 0500 FAX #: [phone] Reason: ventilator, copd EXAMS: CPT CODE: [id number] XR CHEST 1 V 97331 HISTORY: Respiratory failure, ventilator, copd TECHNIQUE: AP chest x-ray COMPARISON: Previous day. IMPRESSION: No airspace consolidation or pleural effusion. Normal heart size. Mediastinal silhouette is unremarkable. Tracheostomy tube. LOCATION: at 0723 Reported and signed by: Lenka Farrar D.O. CC: Lenore Luna MD; Sil Farrar MD Technologist: Wicho De Luna(R); RT CISCO(R) Trnwyrd Date/Time/By: 08/12/2019 (07 ) : By: [email or web address] [facility] Print D/T: S: 08/12/2019 (0784) PAGE 1 Signed Report - XR CHEST 1 [id number] 07:23:00 FAX: Lenore Barraza [place]: B St: DIS FAX: Sil Farrar MD Name: MOJGAN CUMMINGS [facility] : 1950 Age/S: 69/F [address] Unit #: [id number] Loc: V.207 [place] [address] Phys: Sil Farrar MD Acct: [id number] Dis Date: [id number] Status: DIS IN PHONE #: [phone] Exam Date: 08/12/2019 0500 FAX #: [phone] Reason: ventilator, copd EXAMS: CPT CODE: [id number] XR CHEST 1 V 96915 HISTORY: Respiratory failure, ventilator, copd TECHNIQUE: AP chest x-ray COMPARISON: Previous day. IMPRESSION: No airspace consolidation or pleural effusion. Normal heart size. Mediastinal silhouette is unremarkable. Tracheostomy tube. LOCATION: at 0723 Reported and signed by: Lenka Farrar D.O. CC: Lenore Luna MD; Sil Farrar MD Technologist: Wicho De Luna(R); RT CISCO(R) Trnscrd Date/Time/By: 08/12/2019 (722 ) : By: [email or web address] Orig Print D/T: S: 08/12/2019 (07) PAGE 1 Signed Report LACTIC [id number] 05:29:00* Test Item Value Reference Range Interpretation Comments LACTIC ACID (test code = LACT) 2.0 mmol/L 0.4-1.9 H Results called to [id number]. by JOSEY 08/12/19 0529Critical results verified and read back by Nurse? Y Specimen 3+ Hemolysed.Some results MAY NOT be accurate due to hemolysis. BASIC METABOLIC [id number] 05:26:00* Test Item Value Reference Range Interpretation Comments SODIUM (test code = NA) 144 mmol/L 136-145 N POTASSIUM (test code = K) 4.0 mmol/L 3.5-5.1 N CHLORIDE (test code = CL) 109.0 mmol/L 98-107 H CARBON DIOXIDE (test code = CO2) 25.0 mmol/L 21-32 N ANION GAP (test code = GAP) 14.0 10-20 N GLUCOSE (test code = GLU) 77 mg/dL 74-106 N BLOOD UREA NITROGEN (test code = BUN) 21 mg/dL 7-18 H GLOMERULAR FILTRATION RATE (test code = GFR) > 60 mL/min >=60 Estimated GFR by using Modified MDRD formula.Chronic kidney disease is defined as either kidney damageor GFR <60 mL/min/1.73 m2 for >3 months. CREATININE (test code = CREAT) 0.50 mg/dL 0.55-1.02 L Note change in reference range due to change in reagent. BUN/CREATININE RATIO (test code = BUN/CREA) 46.4 10-20 H CALCIUM (test code = CA) 8.8 mg/dL 8.5-10.1 N BASIC METABOLIC [id number] 05:20:00* Test Item Value Reference Range Interpretation Comments SODIUM (test code = NA) 144 mmol/L 136-145 N POTASSIUM (test code = K) 4.0 mmol/L 3.5-5.1 N CHLORIDE (test code = CL) 109.0 mmol/L 98-107 H CARBON DIOXIDE (test code = CO2) mmol/L 21-32 ANION GAP (test code = GAP) 10-20 GLUCOSE (test code = GLU) mg/dL 74-106 BLOOD UREA NITROGEN (test code = BUN) mg/dL 7-18 GLOMERULAR FILTRATION RATE (test code = GFR) mL/min >=60 CREATININE (test code = CREAT) mg/dL 0.55-1.02 BUN/CREATININE RATIO (test code = BUN/CREA) 10-20 CALCIUM (test code = CA) 8.8 mg/dL 8.5-10.1 N [id number] 05:19:00* Test Item Value Reference Range Interpretation Comments MAGNESIUM (test code = MAG) 2.5 mg/dL 1.8-2.4 H Specimen 4+ Hemolysed.Some results MAY NOT be accurate due to hemolysis. [id number] 05:16:00* Test Item Value Reference Range Interpretation Comments MAGNESIUM (test code = MAG) 2.5 mg/dL 1.8-2.4 H [id number] 05:11:00* Test Item Value Reference Range Interpretation Comments PHOSPHORUS (test code = PHOS) 1.7 mg/dL 2.5-4.9 L Specimen 4+ Hemolysed.Some results MAY NOT be accurate due to hemolysis. CALCIUM [id number] 05:11:00* Test Item Value Reference Range Interpretation Comments CALCIUM IONIZED (test code = ERICH) 1.26 mmol/L 1.12-1.32 N ARTERIAL BLOOD [id number] 05:04:00* Test Item Value Reference Range Interpretation Comments ARTERIAL BLOOD GAS PH (test code = PHA) 7.43 7.35-7.45 N ARTERIAL BLOOD GAS PCO2 (test code = PCO2A) 36.9 mm Hg 35-45 N ARTERIAL BLOOD GAS PO2 (test code = PO2A) 337.7 mmHg 80-100 H BICARBONATE TOTAL HCO3 (test code = HCO3) 23.7 mmol/L 23.0-27.0 N BASE EXCESS (test code = SHASHA) -0.5 mmol/L -3.0-5.0 N ABG O2 SATURATION (test code = SATA) 99.1 % 90.0-98.0 H ABG TYPE (test code = TYPEA) Arterial FIO2 (test code = FIO2A) 60.0 ABG VENT MODE (test code = MODEA) VC+ ABG VENT RESP RATE (test code = RRA) 18.0 per min ABG TIDAL VOLUME (test code = TVA) 450.0 mL ABG PEEP (test code = PEEPA) 5.0 cmH2O ABG SITE (test code = SITEA) Rt RADIAL ARTERY MODIFIED ALLENS (test code = MODALL) Yes CHECK PERFORMED SODIUM (test code = NA/ABG) 131.9 mEq/L 135-148 L POTASSIUM (test code = K/ABG) 3.5 mEq/L 3.5-4.5 N CHLORIDE (test code = CL/ABG) 106 mEq/L 98-106 N GLUCOSE (test code = GLU/ABG) 73 mg/dL 74-99 L HEMATOCRIT (test code = HCT/ABG) 33 % 35-47 L IONIZED CALCIUM (test code = CAIABG) 1.18 mmol/L 1.1-1.37 N TOTAL HGB (test code = THB) 11.2 gram/dL 11.5-15.5 L HGB O2 SAT (test code = HBOSAT) 98.7 % 94.00-98.00 H CARBOXYHEMOGLOBIN (test code = HOHGBT) 0.0 %totalHg 0.5-1.5 LL Results called to and read back by Kian Gomes 05:03 - 08/12/2019; by Dilcia Hdz, DELROY METHEMOGLOBIN (test code = METHGB) 0.4 % 0.0-1.50 N O2 CONTENT (test code = O2CT) 16.4 % vol 18.0-22.0 L CBC W/O [id number] 05:02:00* Test Item Value Reference Range Interpretation Comments WHITE BLOOD CELL (test code = WBC) 5.2 K/mm3 4.5-12.5 N RED BLOOD CELL (test code = RBC) 3.03 mill/mm3 3.7-5.2 L HEMOGLOBIN (test code = HGB) 9.1 gram/dL 11.5-15.5 L HEMATOCRIT (test code = HCT) 27.2 % 36.0-46.0 L MEAN CELL VOLUME (test code = MCV) 89.8 fL 80-98 N MEAN CELL HGB (test code = MCH) 30.0 picogram 27.0-33.0 N MEAN CELL HGB CONCETRATION (test code = MCHC) 33.5 gram/dL 33.0-36. 0 N RED CELL DISTRIBUTION WIDTH (test code = RDW) 11.8 % 11.6-16. 2 N PLATELET COUNT (test code = PLT) 30 K/mm3 150-450 LL Results called to [id number] by [facility] 08/12/19 0502Critical results verified and read back by Nurse? Y [id number] 04:45:00* Test Item Value Reference Range Interpretation Comments PHOSPHORUS (test code = PHOS) 1.7 mg/dL 2.5-4.9 L CALCIUM [id number] 04:45:00* Test Item Value Reference Range Interpretation Comments CALCIUM IONIZED (test code = ERICH) 1.26 mmol/L 1.12-1.32 N [id number] 04:32:00* Test Item Value Reference Range Interpretation Comments PHOSPHORUS (test code = PHOS) mg/dL 2.5-4.9 CALCIUM [id number] 04:32:00* Test Item Value Reference Range Interpretation Comments CALCIUM IONIZED (test code = ERICH) 1.26 mmol/L 1.12-1.32 N THROMBOPLASTIN TIME [id number] 00:45:00* Test Item Value Reference Range Interpretation Comments THROMBOPLASTIN TIME PARTIAL (test code = PTT) 31.2 seconds 25.0-36. 5 N IS PATIENT ON ANTICOAGULANTS? [id number] 00:45:00* Test Item Value Reference Range Interpretation Comments FIBRINOGEN (test code = FIB) 464 mg/dL 200-400 H IS PATIENT ON ANTICOAGULANTS? [id number] 00:45:00* Test Item Value Reference Range Interpretation Comments D-DIMER (test code = DDIMER) 2253.00 ng/mLFEU 0-500 Results called to [id number] by [facility] 08/12/19 0017Critical results verified and read back by Nurse? YClinical Cut-off value for D-Dimer is 500 ng/mL FEU. Comment: The [employer] D- Dimer assay is intended for use asan aid in the diagnosis of venous thromboembolism (VTE)[deep vein thrombosis (DVT) or pulmonary embolism (PE)].The measurement of D-Dimer should not be used as an aid inthe diagnosis of VTE, in patient with: -Therapeutic dose anticoagulant therapy for >24 hours - Fibrinolytic therapy within previous 7 days -Trauma or surgery within previous 4 weeks -Disseminated malignancies -Aortic aneurysm -Sepsis, severe infections, pneumonia, severe skin infections -Liver cirrhosis - IS PATIENT ON ANTICOAGULANTS? NHEPARIN INDUCED [id number] 00:45:00 * Test Item Value Reference Range Interpretation Comments HEPARIN INDUCED THROMBOCYTOPEN (test code = HIT) NEGATIVE NEGAT [place] IS PATIENT ON ANTICOAGULANTS? NTHROMBOPLASTIN TIME [id number] 00:18:00* Test Item Value Reference Range Interpretation Comments THROMBOPLASTIN TIME PARTIAL (test code = PTT) 31.2 seconds 25.0-36. 5 N IS PATIENT ON ANTICOAGULANTS? [id number] 00:18:00* Test Item Value Reference Range Interpretation Comments FIBRINOGEN (test code = FIB) 464 mg/dL 200-400 H IS PATIENT ON ANTICOAGULANTS? [id number] 00:18:00* Test Item Value Reference Range Interpretation Comments D-DIMER (test code = DDIMER) 2253.00 ng/mLFEU 0-500 HH Results called to [id number] by [email or web address] 08/12/19 0017Critical results verified and read back by Nurse? YClinical Cut-off value for D-Dimer is 500 ng/mL FEU. Comment: The [employer] D- Dimer assay is intended for use asan aid in the diagnosis of venous thromboembolism (VTE)[deep vein thrombosis (DVT) or pulmonary embolism (PE)].The measurement of D-Dimer should not be used as an aid inthe diagnosis of VTE, in patient with: -Therapeutic dose anticoagulant therapy for >24 hours - Fibrinolytic therapy within previous 7 days -Trauma or surgery within previous 4 weeks -Disseminated malignancies -Aortic aneurysm -Sepsis, severe infections, pneumonia, severe skin infections -Liver cirrhosis - IS PATIENT ON ANTICOAGULANTS? NHEPARIN INDUCED [id number] 00:18:00 * Test Item Value Reference Range Interpretation Comments HEPARIN INDUCED THROMBOCYTOPEN (test code = HIT) NEGAT [place] IS PATIENT ON ANTICOAGULANTS? NCBC W/AUTO [id number] 00:14:00* Test Item Value Reference Range Interpretation Comments WHITE BLOOD CELL (test code = WBC) 5.3 K/mm3 4.5-12.5 N RED BLOOD CELL (test code = RBC) 3.10 mill/mm3 3.7-5.2 L HEMOGLOBIN (test code = HGB) 9.1 gram/dL 11.5-15.5 L HEMATOCRIT (test code = HCT) 28.8 % 36.0-46.0 L MEAN CELL VOLUME (test code = MCV) 92.9 fL 80-98 N MEAN CELL HGB (test code = MCH) 29.4 picogram 27.0-33.0 N MEAN CELL HGB CONCETRATION (test code = MCHC) 31.6 gram/dL 33.0-36. 0 L RED CELL DISTRIBUTION WIDTH (test code = RDW) 11.7 % 11.6-16. 2 N RED CELL DISTRIBUTION WIDTH SD (test code = RDW-SD) 39.7 fL 37 .0-51.0 N PLATELET COUNT (test code = PLT) 28 K/mm3 150-450 LL Results called to [id number] by FERNANDO 08/11/19 2348Critical results verified and read back by Nurse? Y NEUTROPHIL % (test code = NT%) 77.7 % 39.0-69.0 H IMMATURE GRANULOCYTE % (test code = IG%) 0.6 % 0.0-5.0 N LYMPHOCYTE % (test code = LY%) 13.0 % 25.0-55.0 L MONOCYTE % (test code = MO%) 8.3 % 0.0-10.0 N EOSINOPHIL % (test code = EO%) 0.2 % 0.0-5.0 N BASOPHIL % (test code = BA%) 0.2 % 0.0-1.0 N NUCLEATED RBC % (test code = NRBC%) 0.0 % 0-0 N NEUTROPHIL # (test code = NT#) 4.13 K/mm3 1.8-7.7 N IMMATURE GRANULOCYTE # (test code = IG#) 0.03 x10 3/uL 0-0.03 N LYMPHOCYTE # (test code = LY#) 0.69 K/mm3 1.0-5.0 L MONOCYTE # (test code = MO#) 0.44 K/mm3 0-0.8 N EOSINOPHIL # (test code = EO#) 0.01 K/mm3 0.0-0.5 N BASOPHIL # (test code = BA#) 0.01 K/mm3 0.0-0.2 N NUCLEATED RBC # (test code = NRBC#) 0.00 K/mm3 0.0-0.1 N MANUAL DIFF REQUIRED (test code = MDIFF) NO, ONLY SCAN NEEDED SPECIMEN COMMENTS: BLOOD IN LABDIFFERENTIAL [id number] 00:14:00* Test Item Value Reference Range Interpretation Comments STAIN ACCEPTABILITY (test code = STN ACCEPTABLE) STAIN ACCEPTABLE POIKILOCYTOSIS (test code = POIK) 1+ ELLIPTOCYTES (test code = ELL) 1+ CRENATED CELLS (test code = CREN) 1+ PLATELET ESTIMATE (test code = PLTEST) DECREASED PLATELET MORPHOLOGY (test code = PLTMORPH) APPEAR LARGE SPECIMEN COMMENTS: BLOOD IN LABLACTIC [id number] 00:06:00* Test Item Value Reference Range Interpretation Comments LACTIC ACID (test code = LACT) 3.0 mmol/L 0.4-1.9 HH Results called to [id number] by JOSEY 08/12/19 0005Critical results verified and read back by Nurse? Y BASIC METABOLIC [id number] 00:05:00* Test Item Value Reference Range Interpretation Comments SODIUM (test code = NA) 140 mmol/L 136-145 N POTASSIUM (test code = K) 3.6 mmol/L 3.5-5.1 N CHLORIDE (test code = CL) 106.0 mmol/L 98-107 N CARBON DIOXIDE (test code = CO2) 25.0 mmol/L 21-32 N ANION GAP (test code = GAP) 12.6 10-20 N GLUCOSE (test code = GLU) 90 mg/dL 74-106 N BLOOD UREA NITROGEN (test code = BUN) 23 mg/dL 7-18 H GLOMERULAR FILTRATION RATE (test code = GFR) > 60 mL/min >=60 Estimated GFR by using Modified MDRD formula.Chronic kidney disease is defined as either kidney damageor GFR <60 mL/min/1.73 m2 for >3 months. CREATININE (test code = CREAT) 0.60 mg/dL 0.55-1.02 N Note change in reference range due to change in reagent. BUN/CREATININE RATIO (test code = BUN/CREA) 40.6 10-20 H CALCIUM (test code = CA) 9.2 mg/dL 8.5-10.1 N [id number] 00:05:00* Test Item Value Reference Range Interpretation Comments PHOSPHORUS (test code = PHOS) 2.0 mg/dL 2.5-4.9 L [id number] 00:05:00* Test Item Value Reference Range Interpretation Comments MAGNESIUM (test code = MAG) 2.3 mg/dL 1.8-2.4 N CALCIUM [id number] 00:05:00* Test Item Value Reference Range Interpretation Comments CALCIUM IONIZED (test code = ERICH) 1.31 mmol/L 1.12-1.32 N BASIC METABOLIC [id number] 23:58:00* Test Item Value Reference Range Interpretation Comments SODIUM (test code = NA) 140 mmol/L 136-145 N POTASSIUM (test code = K) 3.6 mmol/L 3.5-5.1 N CHLORIDE (test code = CL) 106.0 mmol/L 98-107 N CARBON DIOXIDE (test code = CO2) mmol/L 21-32 ANION GAP (test code = GAP) 10-20 GLUCOSE (test code = GLU) mg/dL 74-106 BLOOD UREA NITROGEN (test code = BUN) mg/dL 7-18 GLOMERULAR FILTRATION RATE (test code = GFR) mL/min >=60 CREATININE (test code = CREAT) mg/dL 0.55-1.02 BUN/CREATININE RATIO (test code = BUN/CREA) 10-20 CALCIUM (test code = CA) mg/dL 8.5-10.1 [id number] 23:58:00* Test Item Value Reference Range Interpretation Comments PHOSPHORUS (test code = PHOS) mg/dL 2.5-4.9 [id number] 23:58:00* Test Item Value Reference Range Interpretation Comments MAGNESIUM (test code = MAG) mg/dL 1.8-2.4 CALCIUM [id number] 23:58:00* Test Item Value Reference Range Interpretation Comments CALCIUM IONIZED (test code = ERICH) 1.31 mmol/L 1.12-1.32 N BASIC METABOLIC [id number] 23:56:00* Test Item Value Reference Range Interpretation Comments SODIUM (test code = NA) mmol/L 136-145 POTASSIUM (test code = K) mmol/L 3.5-5.1 CHLORIDE (test code = CL) mmol/L 98-107 CARBON DIOXIDE (test code = CO2) mmol/L 21-32 ANION GAP (test code = GAP) 10-20 GLUCOSE (test code = GLU) mg/dL 74-106 BLOOD UREA NITROGEN (test code = BUN) mg/dL 7-18 GLOMERULAR FILTRATION RATE (test code = GFR) mL/min >=60 CREATININE (test code = CREAT) mg/dL 0.55-1.02 BUN/CREATININE RATIO (test code = BUN/CREA) 10-20 CALCIUM (test code = CA) mg/dL 8.5-10.1 [id number] 23:56:00* Test Item Value Reference Range Interpretation Comments PHOSPHORUS (test code = PHOS) mg/dL 2.5-4.9 [id number] 23:56:00* Test Item Value Reference Range Interpretation Comments MAGNESIUM (test code = MAG) mg/dL 1.8-2.4 CALCIUM [id number] 23:56:00* Test Item Value Reference Range Interpretation Comments CALCIUM IONIZED (test code = ERICH) 1.31 mmol/L 1.12-1.32 N CBC W/AUTO [id number] 23:54:00* Test Item Value Reference Range Interpretation Comments WHITE BLOOD CELL (test code = WBC) 5.3 K/mm3 4.5-12.5 N RED BLOOD CELL (test code = RBC) 3.10 mill/mm3 3.7-5.2 L HEMOGLOBIN (test code = HGB) 9.1 gram/dL 11.5-15.5 L HEMATOCRIT (test code = HCT) 28.8 % 36.0-46.0 L MEAN CELL VOLUME (test code = MCV) 92.9 fL 80-98 N MEAN CELL HGB (test code = MCH) 29.4 picogram 27.0-33.0 N MEAN CELL HGB CONCETRATION (test code = MCHC) 31.6 gram/dL 33.0-36. 0 L RED CELL DISTRIBUTION WIDTH (test code = RDW) 11.7 % 11.6-16. 2 N RED CELL DISTRIBUTION WIDTH SD (test code = RDW-SD) 39.7 fL 37 .0-51.0 N PLATELET COUNT (test code = PLT) 28 K/mm3 150-450 LL Results called to [id number] by FERNANDO 08/11/19 [id number] results verified and read back by Nurse? Y NEUTROPHIL % (test code = NT%) 77.7 % 39.0-69.0 H IMMATURE GRANULOCYTE % (test code = IG%) 0.6 % 0.0-5.0 N LYMPHOCYTE % (test code = LY%) 13.0 % 25.0-55.0 L MONOCYTE % (test code = MO%) 8.3 % 0.0-10.0 N EOSINOPHIL % (test code = EO%) 0.2 % 0.0-5.0 N BASOPHIL % (test code = BA%) 0.2 % 0.0-1.0 N NUCLEATED RBC % (test code = NRBC%) 0.0 % 0-0 N NEUTROPHIL # (test code = NT#) 4.13 K/mm3 1.8-7.7 N IMMATURE GRANULOCYTE # (test code = IG#) 0.03 x10 3/uL 0-0.03 N LYMPHOCYTE # (test code = LY#) 0.69 K/mm3 1.0-5.0 L MONOCYTE # (test code = MO#) 0.44 K/mm3 0-0.8 N EOSINOPHIL # (test code = EO#) 0.01 K/mm3 0.0-0.5 N BASOPHIL # (test code = BA#) 0.01 K/mm3 0.0-0.2 N NUCLEATED RBC # (test code = NRBC#) 0.00 K/mm3 0.0-0.1 N MANUAL DIFF REQUIRED (test code = MDIFF) NO, ONLY SCAN NEEDED SPECIMEN COMMENTS: BLOOD IN LABDIFFERENTIAL [id number] 23:54:00* Test Item Value Reference Range Interpretation Comments STAIN ACCEPTABILITY (test code = STN ACCEPTABLE) MORPHOLOGY COMMENT (test code = MOC) PLATELET ESTIMATE (test code = PLTEST) PLATELET MORPHOLOGY (test code = PLTMORPH) SPECIMEN COMMENTS: BLOOD IN LABCBC W/AUTO [id number] 23:49:00* Test Item Value Reference Range Interpretation Comments WHITE BLOOD CELL (test code = WBC) 5.3 K/mm3 4.5-12.5 N RED BLOOD CELL (test code = RBC) 3.10 mill/mm3 3.7-5.2 L HEMOGLOBIN (test code = HGB) 9.1 gram/dL 11.5-15.5 L HEMATOCRIT (test code = HCT) 28.8 % 36.0-46.0 L MEAN CELL VOLUME (test code = MCV) 92.9 fL 80-98 N MEAN CELL HGB (test code = MCH) 29.4 picogram 27.0-33.0 N MEAN CELL HGB CONCETRATION (test code = MCHC) 31.6 gram/dL 33.0-36. 0 L RED CELL DISTRIBUTION WIDTH (test code = RDW) 11.7 % 11.6-16. 2 N RED CELL DISTRIBUTION WIDTH SD (test code = RDW-SD) 39.7 fL 37 .0-51.0 N PLATELET COUNT (test code = PLT) 28 K/mm3 150-450 LL Results called to [id number] by [facility] 08/11/19 2348Critical results verified and read back by Nurse? Y NEUTROPHIL % (test code = NT%) 77.7 % 39.0-69.0 H IMMATURE GRANULOCYTE % (test code = IG%) 0.6 % 0.0-5.0 N LYMPHOCYTE % (test code = LY%) 13.0 % 25.0-55.0 L MONOCYTE % (test code = MO%) 8.3 % 0.0-10.0 N EOSINOPHIL % (test code = EO%) 0.2 % 0.0-5.0 N BASOPHIL % (test code = BA%) 0.2 % 0.0-1.0 N NUCLEATED RBC % (test code = NRBC%) 0.0 % 0-0 N NEUTROPHIL # (test code = NT#) 4.13 K/mm3 1.8-7.7 N IMMATURE GRANULOCYTE # (test code = IG#) 0.03 x10 3/uL 0-0.03 N LYMPHOCYTE # (test code = LY#) 0.69 K/mm3 1.0-5.0 L MONOCYTE # (test code = MO#) 0.44 K/mm3 0-0.8 N EOSINOPHIL # (test code = EO#) 0.01 K/mm3 0.0-0.5 N BASOPHIL # (test code = BA#) 0.01 K/mm3 0.0-0.2 N NUCLEATED RBC # (test code = NRBC#) 0.00 K/mm3 0.0-0.1 N MANUAL DIFF REQUIRED (test code = MDIFF) NO, ONLY SCAN NEEDED SPECIMEN COMMENTS: BLOOD IN LABDIFFERENTIAL [id number] 23:49:00* Test Item Value Reference Range Interpretation Comments STAIN ACCEPTABILITY (test code = STN ACCEPTABLE) CABOT RINGS (test code = CAB) MORPHOLOGY COMMENT (test code = MOC) PLATELET ESTIMATE (test code = PLTEST) PLATELET MORPHOLOGY (test code = PLTMORPH) SPECIMEN COMMENTS: BLOOD IN LABCB W/AUTO [id number] 23:49:00* Test Item Value Reference Range Interpretation Comments WHITE BLOOD CELL (test code = WBC) 5.3 K/mm3 4.5-12.5 N RED BLOOD CELL (test code = RBC) 3.10 mill/mm3 3.7-5.2 L HEMOGLOBIN (test code = HGB) 9.1 gram/dL 11.5-15.5 L HEMATOCRIT (test code = HCT) 28.8 % 36.0-46.0 L MEAN CELL VOLUME (test code = MCV) 92.9 fL 80-98 N MEAN CELL HGB (test code = MCH) 29.4 picogram 27.0-33.0 N MEAN CELL HGB CONCETRATION (test code = MCHC) 31.6 gram/dL 33.0-36. 0 L RED CELL DISTRIBUTION WIDTH (test code = RDW) 11.7 % 11.6-16. 2 N RED CELL DISTRIBUTION WIDTH SD (test code = RDW-SD) 39.7 fL 37 .0-51.0 N PLATELET COUNT (test code = PLT) 28 K/mm3 150-450 LL Results called to [id number] by [facility] 08/11/19 2348Critical results verified and read back by Nurse? Y NEUTROPHIL % (test code = NT%) 77.7 % 39.0-69.0 H IMMATURE GRANULOCYTE % (test code = IG%) 0.6 % 0.0-5.0 N LYMPHOCYTE % (test code = LY%) 13.0 % 25.0-55.0 L MONOCYTE % (test code = MO%) 8.3 % 0.0-10.0 N EOSINOPHIL % (test code = EO%) 0.2 % 0.0-5.0 N BASOPHIL % (test code = BA%) 0.2 % 0.0-1.0 N NUCLEATED RBC % (test code = NRBC%) 0.0 % 0-0 N NEUTROPHIL # (test code = NT#) 4.13 K/mm3 1.8-7.7 N IMMATURE GRANULOCYTE # (test code = IG#) 0.03 x10 3/uL 0-0.03 N LYMPHOCYTE # (test code = LY#) 0.69 K/mm3 1.0-5.0 L MONOCYTE # (test code = MO#) 0.44 K/mm3 0-0.8 N EOSINOPHIL # (test code = EO#) 0.01 K/mm3 0.0-0.5 N BASOPHIL # (test code = BA#) 0.01 K/mm3 0.0-0.2 N NUCLEATED RBC # (test code = NRBC#) 0.00 K/mm3 0.0-0.1 N MANUAL DIFF REQUIRED (test code = MDIFF) NO, ONLY SCAN NEEDED SPECIMEN COMMENTS: BLOOD IN LABDIFFERENTIAL [id number] 23:49:00* Test Item Value Reference Range Interpretation Comments STAIN ACCEPTABILITY (test code = STN ACCEPTABLE) MORPHOLOGY COMMENT (test code = MOC) PLATELET ESTIMATE (test code = PLTEST) PLATELET MORPHOLOGY (test code = PLTMORPH) SPECIMEN COMMENTS: BLOOD IN LABCBC W/AUTO [id number] 23:49:00* Test Item Value Reference Range Interpretation Comments WHITE BLOOD CELL (test code = WBC) 5.3 K/mm3 4.5-12.5 N RED BLOOD CELL (test code = RBC) 3.10 mill/mm3 3.7-5.2 L HEMOGLOBIN (test code = HGB) 9.1 gram/dL 11.5-15.5 L HEMATOCRIT (test code = HCT) 28.8 % 36.0-46.0 L MEAN CELL VOLUME (test code = MCV) 92.9 fL 80-98 N MEAN CELL HGB (test code = MCH) 29.4 picogram 27.0-33.0 N MEAN CELL HGB CONCETRATION (test code = MCHC) 31.6 gram/dL 33.0-36. 0 L RED CELL DISTRIBUTION WIDTH (test code = RDW) 11.7 % 11.6-16. 2 N RED CELL DISTRIBUTION WIDTH SD (test code = RDW-SD) 39.7 fL 37 .0-51.0 N PLATELET COUNT (test code = PLT) 28 K/mm3 150-450 LL Results called to [id number] by [facility] 08/11/19 2348Critical results verified and read back by Nurse? Y NEUTROPHIL % (test code = NT%) 77.7 % 39.0-69.0 H IMMATURE GRANULOCYTE % (test code = IG%) 0.6 % 0.0-5.0 N LYMPHOCYTE % (test code = LY%) 13.0 % 25.0-55.0 L MONOCYTE % (test code = MO%) 8.3 % 0.0-10.0 N EOSINOPHIL % (test code = EO%) 0.2 % 0.0-5.0 N BASOPHIL % (test code = BA%) 0.2 % 0.0-1.0 N NUCLEATED RBC % (test code = NRBC%) 0.0 % 0-0 N NEUTROPHIL # (test code = NT#) 4.13 K/mm3 1.8-7.7 N IMMATURE GRANULOCYTE # (test code = IG#) 0.03 x10 3/uL 0-0.03 N LYMPHOCYTE # (test code = LY#) 0.69 K/mm3 1.0-5.0 L MONOCYTE # (test code = MO#) 0.44 K/mm3 0-0.8 N EOSINOPHIL # (test code = EO#) 0.01 K/mm3 0.0-0.5 N BASOPHIL # (test code = BA#) 0.01 K/mm3 0.0-0.2 N NUCLEATED RBC # (test code = NRBC#) 0.00 K/mm3 0.0-0.1 N MANUAL DIFF REQUIRED (test code = MDIFF) NO, ONLY SCAN NEEDED SPECIMEN COMMENTS: BLOOD IN LABDIFFERENTIAL [id number] 23:49:00* Test Item Value Reference Range Interpretation Comments STAIN ACCEPTABILITY (test code = STN ACCEPTABLE) CABOT RINGS (test code = CAB) MORPHOLOGY COMMENT (test code = MOC) PLATELET ESTIMATE (test code = PLTEST) PLATELET MORPHOLOGY (test code = PLTMORPH) SPECIMEN COMMENTS: BLOOD IN [id number] 22:25:00* Test Item Value Reference Range Interpretation Comments GLUBED (test code = GLUBED) 81 mg/dL 74-106 N Performed by certified pulping machine operator at [facility] PROCALCITONIN (PCT)2019-08-11 21:16:00* Test Item Value Reference Range Interpretation Comments PROCALCITONIN (PCT) (test code = PROCAL) 0.18 ng/ml Concentration Interpretation (ng/mL) <0.51 Sepsis is not likely. Local bacterial infection is possible. (LOW RISK for progression to Sepsis) 0.51 - 2.00 Sepsis is possible, but other conditions are known to elevate PCT as well. (MODERATE RISK for progression to Sepsis) > 2.00 Sepsis is likely, unless other causes are known. (HIGH RISK for progression to Severe Sepsis or Septic Shock) 10.00 High likelihood of Severe Sepsis or Septic or higher Shock. *Increased PCT levels may not always be related to systemic bacterial infection.*Low PCT levels do not automatically exclude the presence of bacterial infection.*All results should be interpreted taking into account the patients history. BASIC METABOLIC [id number] 20:50:00* Test Item Value Reference Range Interpretation Comments SODIUM (test code = NA) 141 mmol/L 136-145 N POTASSIUM (test code = K) 3.5 mmol/L 3.5-5.1 N CHLORIDE (test code = CL) 106.0 mmol/L 98-107 N CARBON DIOXIDE (test code = CO2) 25.0 mmol/L 21-32 N ANION GAP (test code = GAP) 13.5 10-20 N GLUCOSE (test code = GLU) 94 mg/dL 74-106 N BLOOD UREA NITROGEN (test code = BUN) 23 mg/dL 7-18 H GLOMERULAR FILTRATION RATE (test code = GFR) > 60 mL/min >=60 Estimated GFR by using Modified MDRD formula.Chronic kidney disease is defined as either kidney damageor GFR <60 mL/min/1.73 m2 for >3 months. CREATININE (test code = CREAT) 0.60 mg/dL 0.55-1.02 N Note change in reference range due to change in reagent. BUN/CREATININE RATIO (test code = BUN/CREA) 38.3 10-20 H CALCIUM (test code = CA) 9.2 mg/dL 8.5-10.1 N [id number] 20:50:00* Test Item Value Reference Range Interpretation Comments PHOSPHORUS (test code = PHOS) 3.3 mg/dL 2.5-4.9 N [id number] 20:50:00* Test Item Value Reference Range Interpretation Comments MAGNESIUM (test code = MAG) 2.6 mg/dL 1.8-2.4 H BASIC METABOLIC [id number] 20:46:00* Test Item Value Reference Range Interpretation Comments SODIUM (test code = NA) 141 mmol/L 136-145 N POTASSIUM (test code = K) 3.5 mmol/L 3.5-5.1 N CHLORIDE (test code = CL) 106.0 mmol/L 98-107 N CARBON DIOXIDE (test code = CO2) mmol/L 21-32 ANION GAP (test code = GAP) 10-20 GLUCOSE (test code = GLU) mg/dL 74-106 BLOOD UREA NITROGEN (test code = BUN) mg/dL 7-18 GLOMERULAR FILTRATION RATE (test code = GFR) mL/min >=60 CREATININE (test code = CREAT) mg/dL 0.55-1.02 BUN/CREATININE RATIO (test code = BUN/CREA) 10-20 CALCIUM (test code = CA) mg/dL 8.5-10.1 [id number] 20:46:00* Test Item Value Reference Range Interpretation Comments PHOSPHORUS (test code = PHOS) mg/dL 2.5-4.9 [id number] 20:46:00* Test Item Value Reference Range Interpretation Comments MAGNESIUM (test code = MAG) mg/dL 1.8-2.4 CBC W/AUTO [id number] 20:44:00* Test Item Value Reference Range Interpretation Comments WHITE BLOOD CELL (test code = WBC) 5.8 K/mm3 4.5-12.5 N RED BLOOD CELL (test code = RBC) 3.27 mill/mm3 3.7-5.2 L HEMOGLOBIN (test code = HGB) 9.6 gram/dL 11.5-15.5 L HEMATOCRIT (test code = HCT) 30.7 % 36.0-46.0 L MEAN CELL VOLUME (test code = MCV) 93.9 fL 80-98 N MEAN CELL HGB (test code = MCH) 29.4 picogram 27.0-33.0 N MEAN CELL HGB CONCETRATION (test code = MCHC) 31.3 gram/dL 33.0-36. 0 L RED CELL DISTRIBUTION WIDTH (test code = RDW) 11.8 % 11.6-16. 2 N RED CELL DISTRIBUTION WIDTH SD (test code = RDW-SD) 40.1 fL 37 .0-51.0 N PLATELET COUNT (test code = PLT) 27 K/mm3 150-450 LL Results called to [id number] by [facility] 08/11/19 2044Critical results verified and read back by Nurse? Y NEUTROPHIL % (test code = NT%) 79.8 % 39.0-69.0 H IMMATURE GRANULOCYTE % (test code = IG%) 0.5 % 0.0-5.0 N LYMPHOCYTE % (test code = LY%) 10.1 % 25.0-55.0 L MONOCYTE % (test code = MO%) 9.2 % 0.0-10.0 N EOSINOPHIL % (test code = EO%) 0.2 % 0.0-5.0 N BASOPHIL % (test code = BA%) 0.2 % 0.0-1.0 N NUCLEATED RBC % (test code = NRBC%) 0.0 % 0-0 N NEUTROPHIL # (test code = NT#) 4.66 K/mm3 1.8-7.7 N IMMATURE GRANULOCYTE # (test code = IG#) 0.03 x10 3/uL 0-0.03 N LYMPHOCYTE # (test code = LY#) 0.59 K/mm3 1.0-5.0 L MONOCYTE # (test code = MO#) 0.54 K/mm3 0-0.8 N EOSINOPHIL # (test code = EO#) 0.01 K/mm3 0.0-0.5 N BASOPHIL # (test code = BA#) 0.01 K/mm3 0.0-0.2 N NUCLEATED RBC # (test code = NRBC#) 0.00 K/mm3 0.0-0.1 N MANUAL DIFF REQUIRED (test code = MDIFF) NO, ONLY SCAN NEEDED [id number] 19:18:00* Test Item Value Reference Range Interpretation Comments GLUBED (test code = GLUBED) 71 mg/dL 74-106 L Performed by certified pulping machine operator at [facility] [id number] 18:04:00* Test Item Value Reference Range Interpretation Comments GLUBED (test code = GLUBED) 88 mg/dL 74-106 N Performed by certified pulping machine operator at [facility] CBC W/AUTO [id number] 17:35:00* Test Item Value Reference Range Interpretation Comments WHITE BLOOD CELL (test code = WBC) 9.1 K/mm3 4.5-12.5 N RED BLOOD CELL (test code = RBC) 3.74 mill/mm3 3.7-5.2 N HEMOGLOBIN (test code = HGB) 11.1 gram/dL 11.5-15.5 L HEMATOCRIT (test code = HCT) 35.3 % 36.0-46.0 L MEAN CELL VOLUME (test code = MCV) 94.4 fL 80-98 N MEAN CELL HGB (test code = MCH) 29.7 picogram 27.0-33.0 N MEAN CELL HGB CONCETRATION (test code = MCHC) 31.4 gram/dL 33.0-36. 0 L RED CELL DISTRIBUTION WIDTH (test code = RDW) 11.8 % 11.6-16. 2 N RED CELL DISTRIBUTION WIDTH SD (test code = RDW-SD) 41.0 fL 37 .0-51.0 N PLATELET COUNT (test code = PLT) 29 K/mm3 150-450 LL Results called to [id number] by [facility] 08/11/19 1647Critical results verified and read back by Nurse? Y IMMATURE GRANULOCYTE % (test code = IG%) 0.6 % 0.0-5.0 N NUCLEATED RBC % (test code = NRBC%) 0.0 % 0-0 N NEUTROPHIL # (test code = NT#) 7.89 K/mm3 1.8-7.7 H IMMATURE GRANULOCYTE # (test code = IG#) 0.05 x10 3/uL 0-0.03 H LYMPHOCYTE # (test code = LY#) 0.45 K/mm3 1.0-5.0 L MONOCYTE # (test code = MO#) 0.66 K/mm3 0-0.8 N EOSINOPHIL # (test code = EO#) 0.01 K/mm3 0.0-0.5 N BASOPHIL # (test code = BA#) 0.02 K/mm3 0.0-0.2 N NUCLEATED RBC # (test code = NRBC#) 0.00 K/mm3 0.0-0.1 N MANUAL DIFF REQUIRED (test code = MDIFF) NO, ONLY SCAN NEEDED DIFFERENTIAL [id number] 17:35:00* Test Item Value Reference Range Interpretation Comments STAIN ACCEPTABILITY (test code = STN ACCEPTABLE) STAIN ACCEPTABLE PLATELET ESTIMATE (test code = PLTEST) DECREASED PLATELET MORPHOLOGY (test code = PLTMORPH) NORMAL B-TYPE NATRIURETIC [id number] 17:23:00* Test Item Value Reference Range Interpretation Comments B-TYPE NATRIURETIC PEPTIDE (test code = BNP) 96.95 pgram/mL 0-100 N BASIC METABOLIC [id number] 17:22:00* Test Item Value Reference Range Interpretation Comments SODIUM (test code = NA) 142 mmol/L 136-145 N POTASSIUM (test code = K) 4.0 mmol/L 3.5-5.1 N CHLORIDE (test code = CL) 107.0 mmol/L 98-107 N CARBON DIOXIDE (test code = CO2) 25.0 mmol/L 21-32 N ANION GAP (test code = GAP) 14.0 10-20 N GLUCOSE (test code = GLU) 105 mg/dL 74-106 N BLOOD UREA NITROGEN (test code = BUN) 23 mg/dL 7-18 H GLOMERULAR FILTRATION RATE (test code = GFR) > 60 mL/min >=60 Estimated GFR by using Modified MDRD formula.Chronic kidney disease is defined as either kidney damageor GFR <60 mL/min/1.73 m2 for >3 months. CREATININE (test code = CREAT) 0.60 mg/dL 0.55-1.02 N Note change in reference range due to change in reagent. BUN/CREATININE RATIO (test code = BUN/CREA) 36.5 10-20 H CALCIUM (test code = CA) 9.3 mg/dL 8.5-10.1 N [id number] 17:22:00* Test Item Value Reference Range Interpretation Comments PHOSPHORUS (test code = PHOS) 2.0 mg/dL 2.5-4.9 L [id number] 17:22:00* Test Item Value Reference Range Interpretation Comments MAGNESIUM (test code = MAG) 2.9 mg/dL 1.8-2.4 H [id number] 17:22:00* Test Item Value Reference Range Interpretation Comments CKMB (test code = CKMBT) 11.6 ng/mL 0-6.0 H [id number] 17:22:00* Test Item Value Reference Range Interpretation Comments TROPONIN-I (test code = TROPI) 1.680 ng/mL 0-0.045 HH [id number] 17:12:00* Test Item Value Reference Range Interpretation Comments GLUBED (test code = GLUBED) 74 mg/dL 74-106 N Performed by certified pulping machine operator at [facility] BASIC METABOLIC [id number] 16:52:00* Test Item Value Reference Range Interpretation Comments SODIUM (test code = NA) 142 mmol/L 136-145 N POTASSIUM (test code = K) 4.0 mmol/L 3.5-5.1 N CHLORIDE (test code = CL) 107.0 mmol/L 98-107 N CARBON DIOXIDE (test code = CO2) mmol/L 21-32 ANION GAP (test code = GAP) 10-20 GLUCOSE (test code = GLU) mg/dL 74-106 BLOOD UREA NITROGEN (test code = BUN) mg/dL 7-18 GLOMERULAR FILTRATION RATE (test code = GFR) mL/min >=60 CREATININE (test code = CREAT) mg/dL 0.55-1.02 BUN/CREATININE RATIO (test code = BUN/CREA) 10-20 CALCIUM (test code = CA) mg/dL 8.5-10.1 [id number] 16:52:00* Test Item Value Reference Range Interpretation Comments PHOSPHORUS (test code = PHOS) mg/dL 2.5-4.9 [id number] 16:52:00* Test Item Value Reference Range Interpretation Comments MAGNESIUM (test code = MAG) mg/dL 1.8-2.4 [id number] 16:52:00* Test Item Value Reference Range Interpretation Comments CKMB (test code = CKMBT) ng/mL 0-6.0 [id number] 16:52:00* Test Item Value Reference Range Interpretation Comments TROPONIN-I (test code = TROPI) ng/mL 0-0.045 CBC W/AUTO [id number] 16:48:00* Test Item Value Reference Range Interpretation Comments WHITE BLOOD CELL (test code = WBC) 9.1 K/mm3 4.5-12.5 N RED BLOOD CELL (test code = RBC) 3.74 mill/mm3 3.7-5.2 N HEMOGLOBIN (test code = HGB) 11.1 gram/dL 11.5-15.5 L HEMATOCRIT (test code = HCT) 35.3 % 36.0-46.0 L MEAN CELL VOLUME (test code = MCV) 94.4 fL 80-98 N MEAN CELL HGB (test code = MCH) 29.7 picogram 27.0-33.0 N MEAN CELL HGB CONCETRATION (test code = MCHC) 31.4 gram/dL 33.0-36. 0 L RED CELL DISTRIBUTION WIDTH (test code = RDW) 11.8 % 11.6-16. 2 N RED CELL DISTRIBUTION WIDTH SD (test code = RDW-SD) 41.0 fL 37 .0-51.0 N PLATELET COUNT (test code = PLT) 29 K/mm3 150-450 LL Results called to [id number] by [email or web address] 08/11/19 1647Critical results verified and read back by Nurse? Y IMMATURE GRANULOCYTE % (test code = IG%) 0.6 % 0.0-5.0 N NUCLEATED RBC % (test code = NRBC%) 0.0 % 0-0 N NEUTROPHIL # (test code = NT#) 7.89 K/mm3 1.8-7.7 H IMMATURE GRANULOCYTE # (test code = IG#) 0.05 x10 3/uL 0-0.03 H LYMPHOCYTE # (test code = LY#) 0.45 K/mm3 1.0-5.0 L MONOCYTE # (test code = MO#) 0.66 K/mm3 0-0.8 N EOSINOPHIL # (test code = EO#) 0.01 K/mm3 0.0-0.5 N BASOPHIL # (test code = BA#) 0.02 K/mm3 0.0-0.2 N NUCLEATED RBC # (test code = NRBC#) 0.00 K/mm3 0.0-0.1 N MANUAL DIFF REQUIRED (test code = MDIFF) NO, ONLY SCAN NEEDED DIFFERENTIAL [id number] 16:48:00* Test Item Value Reference Range Interpretation Comments STAIN ACCEPTABILITY (test code = STN ACCEPTABLE) CABOT RINGS (test code = CAB) MORPHOLOGY COMMENT (test code = MOC) PLATELET ESTIMATE (test code = PLTEST) PLATELET MORPHOLOGY (test code = PLTMORPH) CBC W/AUTO [id number] 16:48:00* Test Item Value Reference Range Interpretation Comments WHITE BLOOD CELL (test code = WBC) 9.1 K/mm3 4.5-12.5 N RED BLOOD CELL (test code = RBC) 3.74 mill/mm3 3.7-5.2 N HEMOGLOBIN (test code = HGB) 11.1 gram/dL 11.5-15.5 L HEMATOCRIT (test code = HCT) 35.3 % 36.0-46.0 L MEAN CELL VOLUME (test code = MCV) 94.4 fL 80-98 N MEAN CELL HGB (test code = MCH) 29.7 picogram 27.0-33.0 N MEAN CELL HGB CONCETRATION (test code = MCHC) 31.4 gram/dL 33.0-36. 0 L RED CELL DISTRIBUTION WIDTH (test code = RDW) 11.8 % 11.6-16. 2 N RED CELL DISTRIBUTION WIDTH SD (test code = RDW-SD) 41.0 fL 37 .0-51.0 N PLATELET COUNT (test code = PLT) 29 K/mm3 150-450 LL Results called to [id number] by V.[facility].HD1 08/11/19 1647Critical results verified and read back by Nurse? Y IMMATURE GRANULOCYTE % (test code = IG%) 0.6 % 0.0-5.0 N NUCLEATED RBC % (test code = NRBC%) 0.0 % 0-0 N NEUTROPHIL # (test code = NT#) 7.89 K/mm3 1.8-7.7 H IMMATURE GRANULOCYTE # (test code = IG#) 0.05 x10 3/uL 0-0.03 H LYMPHOCYTE # (test code = LY#) 0.45 K/mm3 1.0-5.0 L MONOCYTE # (test code = MO#) 0.66 K/mm3 0-0.8 N EOSINOPHIL # (test code = EO#) 0.01 K/mm3 0.0-0.5 N BASOPHIL # (test code = BA#) 0.02 K/mm3 0.0-0.2 N NUCLEATED RBC # (test code = NRBC#) 0.00 K/mm3 0.0-0.1 N MANUAL DIFF REQUIRED (test code = MDIFF) NO, ONLY SCAN NEEDED DIFFERENTIAL [id number] 16:48:00* Test Item Value Reference Range Interpretation Comments STAIN ACCEPTABILITY (test code = STN ACCEPTABLE) CABOT RINGS (test code = CAB) MORPHOLOGY COMMENT (test code = MOC) PLATELET ESTIMATE (test code = PLTEST) PLATELET MORPHOLOGY (test code = PLTMORPH) CBC W/AUTO [id number] 16:48:00* Test Item Value Reference Range Interpretation Comments WHITE BLOOD CELL (test code = WBC) 9.1 K/mm3 4.5-12.5 N RED BLOOD CELL (test code = RBC) 3.74 mill/mm3 3.7-5.2 N HEMOGLOBIN (test code = HGB) 11.1 gram/dL 11.5-15.5 L HEMATOCRIT (test code = HCT) 35.3 % 36.0-46.0 L MEAN CELL VOLUME (test code = MCV) 94.4 fL 80-98 N MEAN CELL HGB (test code = MCH) 29.7 picogram 27.0-33.0 N MEAN CELL HGB CONCETRATION (test code = MCHC) 31.4 gram/dL 33.0-36. 0 L RED CELL DISTRIBUTION WIDTH (test code = RDW) 11.8 % 11.6-16. 2 N RED CELL DISTRIBUTION WIDTH SD (test code = RDW-SD) 41.0 fL 37 .0-51.0 N PLATELET COUNT (test code = PLT) 29 K/mm3 150-450 LL Results called to [id number] by [email or web address] 08/11/19 1647Critical results verified and read back by Nurse? Y IMMATURE GRANULOCYTE % (test code = IG%) 0.6 % 0.0-5.0 N NUCLEATED RBC % (test code = NRBC%) 0.0 % 0-0 N NEUTROPHIL # (test code = NT#) 7.89 K/mm3 1.8-7.7 H IMMATURE GRANULOCYTE # (test code = IG#) 0.05 x10 3/uL 0-0.03 H LYMPHOCYTE # (test code = LY#) 0.45 K/mm3 1.0-5.0 L MONOCYTE # (test code = MO#) 0.66 K/mm3 0-0.8 N EOSINOPHIL # (test code = EO#) 0.01 K/mm3 0.0-0.5 N BASOPHIL # (test code = BA#) 0.02 K/mm3 0.0-0.2 N NUCLEATED RBC # (test code = NRBC#) 0.00 K/mm3 0.0-0.1 N MANUAL DIFF REQUIRED (test code = MDIFF) NO, ONLY SCAN NEEDED DIFFERENTIAL [id number] 16:48:00* Test Item Value Reference Range Interpretation Comments STAIN ACCEPTABILITY (test code = STN ACCEPTABLE) MORPHOLOGY COMMENT (test code = MOC) PLATELET ESTIMATE (test code = PLTEST) PLATELET MORPHOLOGY (test code = PLTMORPH) CBC W/AUTO [id number] 16:48:00* Test Item Value Reference Range Interpretation Comments WHITE BLOOD CELL (test code = WBC) 9.1 K/mm3 4.5-12.5 N RED BLOOD CELL (test code = RBC) 3.74 mill/mm3 3.7-5.2 N HEMOGLOBIN (test code = HGB) 11.1 gram/dL 11.5-15.5 L HEMATOCRIT (test code = HCT) 35.3 % 36.0-46.0 L MEAN CELL VOLUME (test code = MCV) 94.4 fL 80-98 N MEAN CELL HGB (test code = MCH) 29.7 picogram 27.0-33.0 N MEAN CELL HGB CONCETRATION (test code = MCHC) 31.4 gram/dL 33.0-36. 0 L RED CELL DISTRIBUTION WIDTH (test code = RDW) 11.8 % 11.6-16. 2 N RED CELL DISTRIBUTION WIDTH SD (test code = RDW-SD) 41.0 fL 37 .0-51.0 N PLATELET COUNT (test code = PLT) 29 K/mm3 150-450 LL Results called to [id number] by [email or web address] 08/11/19 1647Critical results verified and read back by Nurse? Y IMMATURE GRANULOCYTE % (test code = IG%) 0.6 % 0.0-5.0 N NUCLEATED RBC % (test code = NRBC%) 0.0 % 0-0 N NEUTROPHIL # (test code = NT#) 7.89 K/mm3 1.8-7.7 H IMMATURE GRANULOCYTE # (test code = IG#) 0.05 x10 3/uL 0-0.03 H LYMPHOCYTE # (test code = LY#) 0.45 K/mm3 1.0-5.0 L MONOCYTE # (test code = MO#) 0.66 K/mm3 0-0.8 N EOSINOPHIL # (test code = EO#) 0.01 K/mm3 0.0-0.5 N BASOPHIL # (test code = BA#) 0.02 K/mm3 0.0-0.2 N NUCLEATED RBC # (test code = NRBC#) 0.00 K/mm3 0.0-0.1 N MANUAL DIFF REQUIRED (test code = MDIFF) NO, ONLY SCAN NEEDED DIFFERENTIAL [id number] 16:48:00* Test Item Value Reference Range Interpretation Comments STAIN ACCEPTABILITY (test code = STN ACCEPTABLE) CABOT RINGS (test code = CAB) MORPHOLOGY COMMENT (test code = MOC) PLATELET ESTIMATE (test code = PLTEST) PLATELET MORPHOLOGY (test code = PLTMORPH) [id number] 16:29:00* Test Item Value Reference Range Interpretation Comments GLUBED (test code = GLUBED) 88 mg/dL 74-106 N Performed by certified pulping machine operator at [facility] [id number] 15:02:00* Test Item Value Reference Range Interpretation Comments GLUBED (test code = GLUBED) 106 mg/dL 74-106 N Performed by certified pulping machine operator at [facility] [id number] 14:07:00* Test Item Value Reference Range Interpretation Comments GLUBED (test code = GLUBED) 108 mg/dL 74-106 H Performed by certified pulping machine operator at [facility] ARTERIAL BLOOD [id number] 13:47:00* Test Item Value Reference Range Interpretation Comments ARTERIAL BLOOD GAS PH (test code = PHA) 7.43 7.35-7.45 N ARTERIAL BLOOD GAS PCO2 (test code = PCO2A) 37.3 mm Hg 35-45 N ARTERIAL BLOOD GAS PO2 (test code = PO2A) 396.8 mmHg 80-100 H BICARBONATE TOTAL HCO3 (test code = HCO3) 24.0 mmol/L 23.0-27.0 N BASE EXCESS (test code = SHASHA) -0.2 mmol/L -3.0-5.0 N ABG O2 SATURATION (test code = SATA) 99.7 % 90.0-98.0 H ABG TYPE (test code = TYPEA) Arterial FIO2 (test code = FIO2A) 80.0 ABG VENT MODE (test code = MODEA) Assist Control ABG VENT RESP RATE (test code = RRA) 18.0 per min ABG TIDAL VOLUME (test code = TVA) 450.0 mL ABG PEEP (test code = PEEPA) 5.0 cmH2O ABG SITE (test code = SITEA) Rt RADIAL ARTERY MODIFIED ALLENS (test code = MODALL) Yes CHECK PERFORMED HEMATOCRIT (test code = HCT/ABG) 34 % 35-47 L TOTAL HGB (test code = THB) 11.4 gram/dL 11.5-15.5 L HGB O2 SAT (test code = HBOSAT) 99.3 % 94.00-98.00 H CARBOXYHEMOGLOBIN (test code = HOHGBT) 0.3 %totalHg 0.5-1.5 LL Results called to and read back by dr gonzales 09:55 - 08/11/2019; by bhavesh METHEMOGLOBIN (test code = METHGB) 0.1 % 0.0-1.50 N O2 CONTENT (test code = O2CT) 17.0 % vol 18.0-22.0 L - XR CHEST 1 [id number] 13:15:00 FAX: Alecia Girard NP [phone] [place]: St: DIS FAX: Lenore Barraza Name: MOJGAN CUMMINGS [facility] : 1950 Age/S: 69/F [address] [facility] Unit #: [id number] Loc: Asad[place]IS M [address] Phys: Alecia Girard NP Acct: [id number] Dis Date: [id number] Status: DIS IN PHONE #: [phone] Exam Date: 08/11/2019 1245 FAX #: [phone] Reason: SHORTNESS OF BREATH EXAMS: CPT CODE: [id number] XR CHEST 1 V [id number] EXAM: Chest x-ray, one view; INFORMATION: Shortness of breath, respiratory failure; IMPRESSION: 1. No evidence of acute cardiothoracic abnormalities. 2. No change compared with the study obtained earlier today. Location code: [facility] at 1657 Reported and signed by: Rex Gates M.D. CC: Alecia Girard NP; Lenore Mendoza MD Technologist: Sherrie Bob RT(R); Misty florentino RT(R) Trnscrd Date/Time/By: 08/11/2019 (5657) : By: HarryGR W Orig Print D/T: S: 08/11/2019 (4594) PAGE 1 Signed Report - XR CHEST 1 V 2019-08-11 13:15:00 FAX: Alecia Girard NP [phone] [place]: St: ADM FAX: Lenore Barraza Name: MOJGAN CUMMINGS [place] [facility] : 1950 Age/S: 69/F [address] [facility] Unit #: [id number] Loc: V.S22 [place] [address] Phys: Alecia Girard NP Acct: [id number] Dis Date: Status: ADM IN PHONE #: [phone] Exam Date: 08/11/2019 1245 FAX #: [phone] Reason: SHORTNESS OF BREATH EXAMS: CPT CODE: [id number] XR CHEST 1 V 75314 EXAM: Chest x-ray, one view; INFORMATION: Shortness of breath, respiratory failure; IMPRESSION: 1. No evidence of acute cardiothoracic abnormalities. 2. No change compared with the study obtained earlier today. Location code: [facility] at 1318 Reported and signed by: eRx Gates M.D. CC: Alecia Girard NP; Lenore Mendoza MD Technologist: Sherrie Bob RT(R); Misty florentino RT(R) Trnwyrd Date/Time/By: 08/11/2019 (0556) : By: HarryGR W Orig Print D/T: S: 08/11/2019 (4401) PAGE 1 Signed Report - XR CHEST 1 V 2019-08-11 13:15:00 FAX: Alecia Girard NP [phone] [place]: St: DIS FAX: Lenore Barraza Name: MOJGAN CUMMINGS [facility] : 1950 Age/S: 69/F [address] Unit #: [id number] Loc: V.2078 [place] [address] Phys: Alecia Girard NP Acct: [id number] Dis Date: [id number] Status: DIS IN PHONE #: [phone] Exam Date: 08/11/2019 1245 FAX #: [phone] Reason: SHORTNESS OF BREATH EXAMS: CPT CODE: [id number] XR CHEST 1 V 74248 EXAM: Chest x-ray, one view; INFORMATION: Shortness of breath, respiratory failure; IMPRESSION: 1. No evidence of acute cardiothoracic abnormalities. 2. No change compared with the study obtained earlier today. Location code: [facility] at 1315 Reported and signed by: Rex Gates M.D. CC: Alecia Girard NP; Lenore Mendoza MD Technologist: Sherrie Bob RT(R); Misty florentino RT(R) Trnwyrd Date/Time/By: 08/11/2019 (9162) : By: HarryGR W Orig Print D/T: S: 08/11/2019 (2471) PAGE 1 Signed Report CBC W/AUTO [id number] 12:29:00* Test Item Value Reference Range Interpretation Comments WHITE BLOOD CELL (test code = WBC) 15.7 K/mm3 4.5-12.5 H RED BLOOD CELL (test code = RBC) 3.93 mill/mm3 3.7-5.2 N HEMOGLOBIN (test code = HGB) 11.6 gram/dL 11.5-15.5 N HEMATOCRIT (test code = HCT) 37.6 % 36.0-46.0 N MEAN CELL VOLUME (test code = MCV) 95.7 fL 80-98 N MEAN CELL HGB (test code = MCH) 29.5 picogram 27.0-33.0 N MEAN CELL HGB CONCETRATION (test code = MCHC) 30.9 gram/dL 33.0-36. 0 L RED CELL DISTRIBUTION WIDTH (test code = RDW) 11.8 % 11.6-16. 2 N RED CELL DISTRIBUTION WIDTH SD (test code = RDW-SD) 41.4 fL 37 .0-51.0 N PLATELET COUNT (test code = PLT) 37 K/mm3 150-450 LL Results called to [place] [id number] by V.[email or web address] 08/11/19 1158Critical results verified and read back by Nurse? Y NEUTROPHIL % (test code = NT%) 91.8 % 39.0-69.0 H IMMATURE GRANULOCYTE % (test code = IG%) 0.6 % 0.0-5.0 N LYMPHOCYTE % (test code = LY%) 2.9 % 25.0-55.0 L MONOCYTE % (test code = MO%) 4.3 % 0.0-10.0 N EOSINOPHIL % (test code = EO%) 0.1 % 0.0-5.0 N BASOPHIL % (test code = BA%) 0.3 % 0.0-1.0 N NUCLEATED RBC % (test code = NRBC%) 0.0 % 0-0 N NEUTROPHIL # (test code = NT#) 14.43 K/mm3 1.8-7.7 H IMMATURE GRANULOCYTE # (test code = IG#) 0.10 x10 3/uL 0-0.03 H LYMPHOCYTE # (test code = LY#) 0.45 K/mm3 1.0-5.0 L MONOCYTE # (test code = MO#) 0.67 K/mm3 0-0.8 N EOSINOPHIL # (test code = EO#) 0.02 K/mm3 0.0-0.5 N BASOPHIL # (test code = BA#) 0.04 K/mm3 0.0-0.2 N NUCLEATED RBC # (test code = NRBC#) 0.00 K/mm3 0.0-0.1 N MANUAL DIFF REQUIRED (test code = MDIFF) NO, ONLY SCAN NEEDED DIFFERENTIAL [id number] 12:29:00* Test Item Value Reference Range Interpretation Comments STAIN ACCEPTABILITY (test code = STN ACCEPTABLE) STAIN ACCEPTABLE POIKILOCYTOSIS (test code = POIK) 1+ PLATELET ESTIMATE (test code = PLTEST) DECREASED PLATELET MORPHOLOGY (test code = PLTMORPH) NORMAL LACTIC [id number] 12:13:00* Test Item Value Reference Range Interpretation Comments LACTIC ACID (test code = LACT) 3.1 mmol/L 0.4-1.9 HH Results called to [id number] by CHRISTIE 08/11/19 1212Critical results verified and read back by Nurse? Y BASIC METABOLIC [id number] 12:09:00* Test Item Value Reference Range Interpretation Comments SODIUM (test code = NA) 138 mmol/L 136-145 N POTASSIUM (test code = K) 4.2 mmol/L 3.5-5.1 N CHLORIDE (test code = CL) 108.0 mmol/L 98-107 H CARBON DIOXIDE (test code = CO2) 23.0 mmol/L 21-32 N ANION GAP (test code = GAP) 11.2 10-20 N GLUCOSE (test code = GLU) 210 mg/dL 74-106 H BLOOD UREA NITROGEN (test code = BUN) 22 mg/dL 7-18 H GLOMERULAR FILTRATION RATE (test code = GFR) > 60 mL/min >=60 Estimated GFR by using Modified MDRD formula.Chronic kidney disease is defined as either kidney damageor GFR <60 mL/min/1.73 m2 for >3 months. CREATININE (test code = CREAT) 0.80 mg/dL 0.55-1.02 N Note change in reference range due to change in reagent. BUN/CREATININE RATIO (test code = BUN/CREA) 26.9 10-20 H CALCIUM (test code = CA) 9.8 mg/dL 8.5-10.1 N [id number] 12:09:00* Test Item Value Reference Range Interpretation Comments PHOSPHORUS (test code = PHOS) 1.8 mg/dL 2.5-4.9 L [id number] 12:09:00* Test Item Value Reference Range Interpretation Comments MAGNESIUM (test code = MAG) 1.2 mg/dL 1.8-2.4 L BASIC METABOLIC [id number] 12:01:00* Test Item Value Reference Range Interpretation Comments SODIUM (test code = NA) 138 mmol/L 136-145 N POTASSIUM (test code = K) 4.2 mmol/L 3.5-5.1 N CHLORIDE (test code = CL) 108.0 mmol/L 98-107 H CARBON DIOXIDE (test code = CO2) mmol/L 21-32 ANION GAP (test code = GAP) 10-20 GLUCOSE (test code = GLU) mg/dL 74-106 BLOOD UREA NITROGEN (test code = BUN) mg/dL 7-18 GLOMERULAR FILTRATION RATE (test code = GFR) mL/min >=60 CREATININE (test code = CREAT) mg/dL 0.55-1.02 BUN/CREATININE RATIO (test code = BUN/CREA) 10-20 CALCIUM (test code = CA) mg/dL 8.5-10.1 [id number] 12:01:00* Test Item Value Reference Range Interpretation Comments PHOSPHORUS (test code = PHOS) mg/dL 2.5-4.9 [id number] 12:01:00* Test Item Value Reference Range Interpretation Comments MAGNESIUM (test code = MAG) mg/dL 1.8-2.4 CBC W/AUTO [id number] 11:59:00* Test Item Value Reference Range Interpretation Comments WHITE BLOOD CELL (test code = WBC) 15.7 K/mm3 4.5-12.5 H RED BLOOD CELL (test code = RBC) 3.93 mill/mm3 3.7-5.2 N HEMOGLOBIN (test code = HGB) 11.6 gram/dL 11.5-15.5 N HEMATOCRIT (test code = HCT) 37.6 % 36.0-46.0 N MEAN CELL VOLUME (test code = MCV) 95.7 fL 80-98 N MEAN CELL HGB (test code = MCH) 29.5 picogram 27.0-33.0 N MEAN CELL HGB CONCETRATION (test code = MCHC) 30.9 gram/dL 33.0-36. 0 L RED CELL DISTRIBUTION WIDTH (test code = RDW) 11.8 % 11.6-16. 2 N RED CELL DISTRIBUTION WIDTH SD (test code = RDW-SD) 41.4 fL 37 .0-51.0 N PLATELET COUNT (test code = PLT) 37 K/mm3 150-450 LL Results called to [id number] by [email or web address] 08/11/19 1158Critical results verified and read back by Nurse? Y NEUTROPHIL % (test code = NT%) 91.8 % 39.0-69.0 H IMMATURE GRANULOCYTE % (test code = IG%) 0.6 % 0.0-5.0 N LYMPHOCYTE % (test code = LY%) 2.9 % 25.0-55.0 L MONOCYTE % (test code = MO%) 4.3 % 0.0-10.0 N EOSINOPHIL % (test code = EO%) 0.1 % 0.0-5.0 N BASOPHIL % (test code = BA%) 0.3 % 0.0-1.0 N NUCLEATED RBC % (test code = NRBC%) 0.0 % 0-0 N NEUTROPHIL # (test code = NT#) 14.43 K/mm3 1.8-7.7 H IMMATURE GRANULOCYTE # (test code = IG#) 0.10 x10 3/uL 0-0.03 H LYMPHOCYTE # (test code = LY#) 0.45 K/mm3 1.0-5.0 L MONOCYTE # (test code = MO#) 0.67 K/mm3 0-0.8 N EOSINOPHIL # (test code = EO#) 0.02 K/mm3 0.0-0.5 N BASOPHIL # (test code = BA#) 0.04 K/mm3 0.0-0.2 N NUCLEATED RBC # (test code = NRBC#) 0.00 K/mm3 0.0-0.1 N MANUAL DIFF REQUIRED (test code = MDIFF) NO, ONLY SCAN NEEDED DIFFERENTIAL [id number] 11:59:00* Test Item Value Reference Range Interpretation Comments STAIN ACCEPTABILITY (test code = STN ACCEPTABLE) CABOT RINGS (test code = CAB) MORPHOLOGY COMMENT (test code = MOC) PLATELET ESTIMATE (test code = PLTEST) PLATELET MORPHOLOGY (test code = PLTMORPH) CBC W/AUTO [id number] 11:59:00* Test Item Value Reference Range Interpretation Comments WHITE BLOOD CELL (test code = WBC) 15.7 K/mm3 4.5-12.5 H RED BLOOD CELL (test code = RBC) 3.93 mill/mm3 3.7-5.2 N HEMOGLOBIN (test code = HGB) 11.6 gram/dL 11.5-15.5 N HEMATOCRIT (test code = HCT) 37.6 % 36.0-46.0 N MEAN CELL VOLUME (test code = MCV) 95.7 fL 80-98 N MEAN CELL HGB (test code = MCH) 29.5 picogram 27.0-33.0 N MEAN CELL HGB CONCETRATION (test code = MCHC) 30.9 gram/dL 33.0-36. 0 L RED CELL DISTRIBUTION WIDTH (test code = RDW) 11.8 % 11.6-16. 2 N RED CELL DISTRIBUTION WIDTH SD (test code = RDW-SD) 41.4 fL 37 .0-51.0 N PLATELET COUNT (test code = PLT) 37 K/mm3 150-450 LL Results called to [id number] by [email or web address] 08/11/19 1158Critical results verified and read back by Nurse? Y NEUTROPHIL % (test code = NT%) 91.8 % 39.0-69.0 H IMMATURE GRANULOCYTE % (test code = IG%) 0.6 % 0.0-5.0 N LYMPHOCYTE % (test code = LY%) 2.9 % 25.0-55.0 L MONOCYTE % (test code = MO%) 4.3 % 0.0-10.0 N EOSINOPHIL % (test code = EO%) 0.1 % 0.0-5.0 N BASOPHIL % (test code = BA%) 0.3 % 0.0-1.0 N NUCLEATED RBC % (test code = NRBC%) 0.0 % 0-0 N NEUTROPHIL # (test code = NT#) 14.43 K/mm3 1.8-7.7 H IMMATURE GRANULOCYTE # (test code = IG#) 0.10 x10 3/uL 0-0.03 H LYMPHOCYTE # (test code = LY#) 0.45 K/mm3 1.0-5.0 L MONOCYTE # (test code = MO#) 0.67 K/mm3 0-0.8 N EOSINOPHIL # (test code = EO#) 0.02 K/mm3 0.0-0.5 N BASOPHIL # (test code = BA#) 0.04 K/mm3 0.0-0.2 N NUCLEATED RBC # (test code = NRBC#) 0.00 K/mm3 0.0-0.1 N MANUAL DIFF REQUIRED (test code = MDIFF) NO, ONLY SCAN NEEDED DIFFERENTIAL [id number] 11:59:00* Test Item Value Reference Range Interpretation Comments STAIN ACCEPTABILITY (test code = STN ACCEPTABLE) CABOT RINGS (test code = CAB) MORPHOLOGY COMMENT (test code = MOC) PLATELET ESTIMATE (test code = PLTEST) PLATELET MORPHOLOGY (test code = PLTMORPH) CBC W/AUTO [id number] 11:59:00* Test Item Value Reference Range Interpretation Comments WHITE BLOOD CELL (test code = WBC) 15.7 K/mm3 4.5-12.5 H RED BLOOD CELL (test code = RBC) 3.93 mill/mm3 3.7-5.2 N HEMOGLOBIN (test code = HGB) 11.6 gram/dL 11.5-15.5 N HEMATOCRIT (test code = HCT) 37.6 % 36.0-46.0 N MEAN CELL VOLUME (test code = MCV) 95.7 fL 80-98 N MEAN CELL HGB (test code = MCH) 29.5 picogram 27.0-33.0 N MEAN CELL HGB CONCETRATION (test code = MCHC) 30.9 gram/dL 33.0-36. 0 L RED CELL DISTRIBUTION WIDTH (test code = RDW) 11.8 % 11.6-16. 2 N RED CELL DISTRIBUTION WIDTH SD (test code = RDW-SD) 41.4 fL 37 .0-51.0 N PLATELET COUNT (test code = PLT) 37 K/mm3 150-450 LL Results called to [id number] by [email or web address] 08/11/19 1158Critical results verified and read back by Nurse? Y NEUTROPHIL % (test code = NT%) 91.8 % 39.0-69.0 H IMMATURE GRANULOCYTE % (test code = IG%) 0.6 % 0.0-5.0 N LYMPHOCYTE % (test code = LY%) 2.9 % 25.0-55.0 L MONOCYTE % (test code = MO%) 4.3 % 0.0-10.0 N EOSINOPHIL % (test code = EO%) 0.1 % 0.0-5.0 N BASOPHIL % (test code = BA%) 0.3 % 0.0-1.0 N NUCLEATED RBC % (test code = NRBC%) 0.0 % 0-0 N NEUTROPHIL # (test code = NT#) 14.43 K/mm3 1.8-7.7 H IMMATURE GRANULOCYTE # (test code = IG#) 0.10 x10 3/uL 0-0.03 H LYMPHOCYTE # (test code = LY#) 0.45 K/mm3 1.0-5.0 L MONOCYTE # (test code = MO#) 0.67 K/mm3 0-0.8 N EOSINOPHIL # (test code = EO#) 0.02 K/mm3 0.0-0.5 N BASOPHIL # (test code = BA#) 0.04 K/mm3 0.0-0.2 N NUCLEATED RBC # (test code = NRBC#) 0.00 K/mm3 0.0-0.1 N MANUAL DIFF REQUIRED (test code = MDIFF) NO, ONLY SCAN NEEDED DIFFERENTIAL [id number] 11:59:00* Test Item Value Reference Range Interpretation Comments STAIN ACCEPTABILITY (test code = STN ACCEPTABLE) MORPHOLOGY COMMENT (test code = MOC) PLATELET ESTIMATE (test code = PLTEST) PLATELET MORPHOLOGY (test code = PLTMORPH) CBC W/AUTO [id number] 11:59:00* Test Item Value Reference Range Interpretation Comments WHITE BLOOD CELL (test code = WBC) 15.7 K/mm3 4.5-12.5 H RED BLOOD CELL (test code = RBC) 3.93 mill/mm3 3.7-5.2 N HEMOGLOBIN (test code = HGB) 11.6 gram/dL 11.5-15.5 N HEMATOCRIT (test code = HCT) 37.6 % 36.0-46.0 N MEAN CELL VOLUME (test code = MCV) 95.7 fL 80-98 N MEAN CELL HGB (test code = MCH) 29.5 picogram 27.0-33.0 N MEAN CELL HGB CONCETRATION (test code = MCHC) 30.9 gram/dL 33.0-36. 0 L RED CELL DISTRIBUTION WIDTH (test code = RDW) 11.8 % 11.6-16. 2 N RED CELL DISTRIBUTION WIDTH SD (test code = RDW-SD) 41.4 fL 37 .0-51.0 N PLATELET COUNT (test code = PLT) 37 K/mm3 150-450 LL Results called to [id number] by [email or web address] 08/11/19 1158Critical results verified and read back by Nurse? Y NEUTROPHIL % (test code = NT%) 91.8 % 39.0-69.0 H IMMATURE GRANULOCYTE % (test code = IG%) 0.6 % 0.0-5.0 N LYMPHOCYTE % (test code = LY%) 2.9 % 25.0-55.0 L MONOCYTE % (test code = MO%) 4.3 % 0.0-10.0 N EOSINOPHIL % (test code = EO%) 0.1 % 0.0-5.0 N BASOPHIL % (test code = BA%) 0.3 % 0.0-1.0 N NUCLEATED RBC % (test code = NRBC%) 0.0 % 0-0 N NEUTROPHIL # (test code = NT#) 14.43 K/mm3 1.8-7.7 H IMMATURE GRANULOCYTE # (test code = IG#) 0.10 x10 3/uL 0-0.03 H LYMPHOCYTE # (test code = LY#) 0.45 K/mm3 1.0-5.0 L MONOCYTE # (test code = MO#) 0.67 K/mm3 0-0.8 N EOSINOPHIL # (test code = EO#) 0.02 K/mm3 0.0-0.5 N BASOPHIL # (test code = BA#) 0.04 K/mm3 0.0-0.2 N NUCLEATED RBC # (test code = NRBC#) 0.00 K/mm3 0.0-0.1 N MANUAL DIFF REQUIRED (test code = MDIFF) NO, ONLY SCAN NEEDED DIFFERENTIAL [id number] 11:59:00* Test Item Value Reference Range Interpretation Comments STAIN ACCEPTABILITY (test code = STN ACCEPTABLE) CABOT RINGS (test code = CAB) MORPHOLOGY COMMENT (test code = MOC) PLATELET ESTIMATE (test code = PLTEST) PLATELET MORPHOLOGY (test code = PLTMORPH) [id number] 11:49:00* Test Item Value Reference Range Interpretation Comments GLUBED (test code = GLUBED) 187 mg/dL 74-106 H Performed by certified pulping machine operator at [facility] [id number] 09:25:00* Test Item Value Reference Range Interpretation Comments GLUBED (test code = GLUBED) 214 mg/dL 74-106 H Performed by certified pulping machine operator at [facility] CBC W/AUTO [id number] 08:44:00* Test Item Value Reference Range Interpretation Comments WHITE BLOOD CELL (test code = WBC) 9.7 K/mm3 4.5-12.5 N RED BLOOD CELL (test code = RBC) 3.52 mill/mm3 3.7-5.2 L HEMOGLOBIN (test code = HGB) 10.5 gram/dL 11.5-15.5 L HEMATOCRIT (test code = HCT) 34.2 % 36.0-46.0 L MEAN CELL VOLUME (test code = MCV) 97.2 fL 80-98 N MEAN CELL HGB (test code = MCH) 29.8 picogram 27.0-33.0 N MEAN CELL HGB CONCETRATION (test code = MCHC) 30.7 gram/dL 33.0-36. 0 L RED CELL DISTRIBUTION WIDTH (test code = RDW) 11.9 % 11.6-16. 2 N RED CELL DISTRIBUTION WIDTH SD (test code = RDW-SD) 42.5 fL 37 .0-51.0 N PLATELET COUNT (test code = PLT) 35 K/mm3 150-450 LL Results called to [id number] by AUDREY 08/11/19 0713Critical results verified and read back by Nurse? Y MEAN PLATELET VOLUME (test code = MPV) TEST NOT PERFORMED fL 6.7-11 .0 NEUTROPHIL % (test code = NT%) 64.0 % 39.0-69.0 N IMMATURE GRANULOCYTE % (test code = IG%) 1.5 % 0.0-5.0 N LYMPHOCYTE % (test code = LY%) 23.0 % 25.0-55.0 L MONOCYTE % (test code = MO%) 8.9 % 0.0-10.0 N EOSINOPHIL % (test code = EO%) 2.4 % 0.0-5.0 N BASOPHIL % (test code = BA%) 0.2 % 0.0-1.0 N NUCLEATED RBC % (test code = NRBC%) 0.0 % 0-0 N NEUTROPHIL # (test code = NT#) 6.22 K/mm3 1.8-7.7 N IMMATURE GRANULOCYTE # (test code = IG#) 0.15 x10 3/uL 0-0.03 H LYMPHOCYTE # (test code = LY#) 2.23 K/mm3 1.0-5.0 N MONOCYTE # (test code = MO#) 0.86 K/mm3 0-0.8 H EOSINOPHIL # (test code = EO#) 0.23 K/mm3 0.0-0.5 N BASOPHIL # (test code = BA#) 0.02 K/mm3 0.0-0.2 N NUCLEATED RBC # (test code = NRBC#) 0.00 K/mm3 0.0-0.1 N MANUAL DIFF REQUIRED (test code = MDIFF) NO, ONLY SCAN NEEDED DIFFERENTIAL [id number] 08:44:00* Test Item Value Reference Range Interpretation Comments STAIN ACCEPTABILITY (test code = STN ACCEPTABLE) STAIN ACCEPTABLE POIKILOCYTOSIS (test code = POIK) 1+ PLATELET ESTIMATE (test code = PLTEST) DECREASED PLATELET MORPHOLOGY (test code = PLTMORPH) NORMAL - CT HEAD/BRAIN W/O [id number] 08:26:00 Name: MOJGAN CUMMINGS [facility] : 1950 Age/S: 69 / F [address] [facility] Unit #: [id number] Loc: [place] [address] Phys: Sam Carrillo MD Acct: [id number] Dis Date: 08/19/2019 Status: DIS IN PHONE #: [phone] Exam Date: 08/11/2019 0740 FAX #: [phone] Reason: CONFUSION EXAMS: CPT CODE: [id number] CT HEAD/BRAIN W/O CONT 60406 EXAM: CT of the head without contrast; INFORMATION: Unresponsive; altered mental status; TECHNIQUE AND FINDINGS: CT dose reduction protocol; 2.5 mm axial scans; There is no evidence of intra or extra-axial hemorrhage, mass lesions or midline shift. Evaluation of brain parenchyma is slightly impaired due to motion artifacts; mild chronic ischemic white matter changes; otherwise, unremarkable zimmerman/white matter differentiation. The calvarium appears to be intact. Mucosal swelling in the left sphenoid sinus; opacification of left mastoid air cells is partial opacification of right mastoid air cells. IMPRESSION: 1. No evidence of intracranial hemorrhage or acute territorial infarction. 2. Mild chronic ischemic white matter changes. 3. Left sphenoid sinusitis. 4. Bilateral mastoiditis. Location code: [facility] at 0826 Reported and signed by: Rex Gates M.D. CC: Sam Carrillo MD Technologist:Antoine Caal RT(R)(CT) CTDI: DLP: Trnscb Date/Time: 08/11/2019 (825) HarryGRW Orig Print D/T: S: 08/11/2019 (0020) PAGE 1 Signed Report - CT HEAD/BRAIN W/O [id number] 08:26:00 Name: MOJGAN CUMMINGS [facility] : 1950 Age/S: 69 / F [address] [facility] Unit #: [id number] Loc: [place] [address] Phys: Sam Carrillo MD Acct: [id number] Di s Date: Status: ADM IN PHONE #: Exam Date: 08/11/2019739 FAX #: Reason: CONFUSION EXAMS: CPT CODE: [id number] CT HEAD/BRAIN W/O CONT 08269 EXAM: CT of the head with out contrast; INFORMATION: Unresponsive; altered mental status; TECHNIQUE AND FINDINGS: CT dose reduction protocol; 2.5 mm axial scans; There is no evidence of intra or extra-axial hemorrhage, m ass lesions or midline shift. Evaluation of brain parenchyma is slig htly impaired due to motion artifacts; mild chronic ischemic white matter changes; otherwise, unremarkable zimmerman/white matter differentiation. The calvarium appears to be intact. Mucosal swelling in the left sphenoid sinus; opacification of left mastoid air cells is partial opacification of right mastoid air cells. IMPRESSION: 1. No evidence of intracranial hemorrhage or acute territorial infarction. 2. Mi ld chronic ischemic white matter changes. 3. Left sphenoid sinusitis. 4. Bilateral mastoiditis. Location code: [facility] at 0826 Reported and signed by: Rex Gates M.D. CC: Sam Carrillo MD Technologist:Antoine Caal RT(R)(CT) CTDI: DLP: Trnscb Date/Time: 08/11/2019 (825) Omar Orig Print D/T: S: 08/11/2019 (828) PAGE 1 Signed Report - CT HEAD/BRAIN W/O [id number] 08:26:00 Name: MOJGAN CUMMINGS [facility] : 1950 Age/S: 69 / F [address] Unit #: [id number] Loc: [place] [address] Phys: Sam Carrillo MD Acct: [id number] Di s Date: 08/19/2019 Status: DIS IN PHONE #: Exam Date: 08/11/2019 0752 FAX #: Reason: CONFUSION EXAMS: CPT CODE: [id number] CT HEAD/BRAIN W/O CONT 51322 EXAM: CT of the head with out contrast; INFORMATION: Unresponsive; altered mental status; TECHNIQUE AND FINDINGS: CT dose reduction protocol; 2.5 mm axial scans; There is no evidence of intra or extra-axial hemorrhage, m ass lesions or midline shift. Evaluation of brain parenchyma is slig htly impaired due to motion artifacts; mild chronic ischemic white matter changes; otherwise, unremarkable zimmerman/white matter differentiation. The calvarium appears to be intact. Mucosal swelling in the left sphenoid sinus; opacification of left mastoid air cells is partial opacification of right mastoid air cells. IMPRESSION: 1. No evidence of intracranial hemorrhage or acute territorial infarction. 2. Mi ld chronic ischemic white matter changes. 3. Left sphenoid sinusitis. 4. Bilateral mastoiditis. Location code: [facility] at 0826 Reported and signed by: Rex Gates M.D. CC: Sam Carrillo MD Technologist:Antoine Caal RT(R)(CT) CTDI: DLP: Trnscb Date/Time: 08/11/2019 (825) Omar Orig Print D/T: S: 08/11/2019 (10) PAGE 1 Signed Report B-TYPE NATRIURETIC [id number] 08:00:00* Test Item Value Reference Range Interpretation Comments B-TYPE NATRIURETIC PEPTIDE (test code = BNP) 86.81 pgram/mL 0-100 N URINALYSIS [id number] 07:55:00* Test Item Value Reference Range Interpretation Comments UA COLOR (test code = COLU) YELLOW YELLOW UA APPEARANCE (test code = APPU) CLEAR CLEAR UA GLUCOSE DIPSTICK (test code = DGLUU) 500 (3+) mg/dL NEGATIVE A UA BILIRUBIN DIPSTICK (test code = BILU) NEGATIVE mg/dL NEGATIVE UA KETONE DIPSTICK (test code = KETU) NEGATIVE mg/dL NEGATIVE UA SPECIFIC GRAVITY (test code = SGU) 1.017 1.001-1.035 UA BLOOD DIPSTICK (test code = ADEOLA) Negative mg/dL NEGATIVE UA PH DIPSTICK (test code = RANDELL) 5.5 5.0-8.0 UA PROTEIN DIPSTICK (test code = PROU) 100 (2+) mg/dL NEGATIVE A UA UROBILINIOGEN DIPSTICK (test code = URO) Normal mg/dL NEGATIVE UA NITRITE DIPSTICK (test code = RAFIA) NEGATIVE NEGATIVE UA LEUKOCYTE ESTERASE W REFLEX (test code = LEUUR) NEGATIVE Jimmie/uL NEGATIVE UA WBC (test code = WBCU) 6-10 per HPF 0-5 A UA RBC (test code = RBCU) 6-10 #/HPF 0-5 A UA EPITHELIAL CELLS (test code = EPIU) FEW per HPF FEW UA BACTERIA (test code = BACU) FEW #/HPF NONE A UA MUCUS (test code = MUCU) FEW #/LPF FEW Urine Source? Clean CatchDRUGS OF ABUSE SCREEN [id number] 07:55:00* Test Item Value Reference Range Interpretation Comments URN COCAINE (test code = COCAURN) NEGATIVE <300 ng/mL URN CANNABINOIDS (test code = CANNABURN) NEGATIVE <50 ng/mL URN AMPHETAMINE (test code = AMPHETURN) NEGATIVE <1000 ng/mL URN BARBITURATE (test code = BARBITURN) NEGATIVE <200 ng/mL URN BENZODIAZEPINE (test code = BENZOURN) NEGATIVE <200 ng/mL URN OPIATES (test code = OPIATURN) POSITIVE <300 ng/mL A This test provides only a preliminary test result. A morespecific alternate chemical method must be used in order toobtain a confirmed analytical result. Gas chromatography/mass spectrometry (GC/MS) is thepreferred confirmatory method. Other chemical confirmationmethods are available. Clinical consideration and professional judgment should be applied to any drug of abusetest result, particularly when preliminary positive resultsare used.Unconfirmed screening results must not be used fornon-medical purposes (e.g., employment testing, legaltesting). URN PHENCYCLIDINE (PCP) (test code = PHENCURN) NEGATIVE <25 ng/ mL URN METHADONE (test code = METHAURN) NEGATIVE <300 ng/mL Urine Source? Clean CatchPROTHROMBIN [id number] 07:28:00* Test Item Value Reference Range Interpretation Comments PROTHROMBIN TIME PATIENT (test code = PTP) 11.5 seconds 9.0-14.0 N INTERNATIONAL NORMAL RATIO (test code = INR) 1.0 0.8-1.2 N The therapeutic range for oral anticoagulant therapy formost indications is an international normalized ratio (INR)of between 2.0 and 3.0. The recommended therapeutic INRrange for various clinical situations is listed below: Clinical Situation INR range Pulmonary e mbolism treatment (2.0-3.0)Venous thrombosis treatmentVenous thrombosis prophylaxis (high risk surgery)Prevention of systemic embolism from: Acute myocardial infarction Valvular heart disease Atrial fibrillation Mechanical prosthetic heart valves (2.5-3.5) IS PATIENT ON ANTICOAGULANTS? NTHROMBOPLASTIN TIME [id number] 07:28:00* Test Item Value Reference Range Interpretation Comments THROMBOPLASTIN TIME PARTIAL (test code = PTT) 31.3 seconds 25.0-36. 5 N IS PATIENT ON ANTICOAGULANTS? NLACTIC [id number] 07:28:00* Test Item Value Reference Range Interpretation Comments LACTIC ACID (test code = LACT) 6.5 mmol/L 0.4-1.9 HH Results called to [email or web address] DOWLING 08/11/19 0728Critical results verified and read back by Nurse? Y URINALYSIS [id number] 07:23:00* Test Item Value Reference Range Interpretation Comments UA COLOR (test code = COLU) YELLOW YELLOW UA APPEARANCE (test code = APPU) CLEAR CLEAR UA GLUCOSE DIPSTICK (test code = DGLUU) 500 (3+) mg/dL NEGATIVE A UA BILIRUBIN DIPSTICK (test code = BILU) NEGATIVE mg/dL NEGATIVE UA KETONE DIPSTICK (test code = KETU) NEGATIVE mg/dL NEGATIVE UA SPECIFIC GRAVITY (test code = SGU) 1.017 1.001-1.035 UA BLOOD DIPSTICK (test code = ADEOLA) Negative mg/dL NEGATIVE UA PH DIPSTICK (test code = RANDELL) 5.5 5.0-8.0 UA PROTEIN DIPSTICK (test code = PROU) 100 (2+) mg/dL NEGATIVE A UA UROBILINIOGEN DIPSTICK (test code = URO) Normal mg/dL NEGATIVE UA NITRITE DIPSTICK (test code = RAFIA) NEGATIVE NEGATIVE UA LEUKOCYTE ESTERASE W REFLEX (test code = LEUUR) NEGATIVE Jimmie/uL NEGATIVE UA WBC (test code = WBCU) 6-10 per HPF 0-5 A UA RBC (test code = RBCU) 6-10 #/HPF 0-5 A UA EPITHELIAL CELLS (test code = EPIU) FEW per HPF FEW UA BACTERIA (test code = BACU) FEW #/HPF NONE A UA MUCUS (test code = MUCU) FEW #/LPF FEW Urine Source? Clean CatchDRUGS OF ABUSE SCREEN [id number] 07:23:00* Test Item Value Reference Range Interpretation Comments URN COCAINE (test code = COCAURN) <300 ng/mL URN CANNABINOIDS (test code = CANNABURN) <50 ng/mL URN AMPHETAMINE (test code = AMPHETURN) <1000 ng/mL URN BARBITURATE (test code = BARBITURN) <200 ng/mL URN BENZODIAZEPINE (test code = BENZOURN) <200 ng/mL URN OPIATES (test code = OPIATURN) <300 ng/mL URN PHENCYCLIDINE (PCP) (test code = PHENCURN) <25 ng/ mL URN METHADONE (test code = METHAURN) <300 ng/mL Urine Source? Clean CatchURINALYSIS [id number] 07:21:00* Test Item Value Reference Range Interpretation Comments UA COLOR (test code = COLU) YELLOW YELLOW UA APPEARANCE (test code = APPU) CLEAR CLEAR UA GLUCOSE DIPSTICK (test code = DGLUU) 500 (3+) mg/dL NEGATIVE A UA BILIRUBIN DIPSTICK (test code = BILU) NEGATIVE mg/dL NEGATIVE UA KETONE DIPSTICK (test code = KETU) NEGATIVE mg/dL NEGATIVE UA SPECIFIC GRAVITY (test code = SGU) 1.017 1.001-1.035 UA BLOOD DIPSTICK (test code = ADEOLA) Negative mg/dL NEGATIVE UA PH DIPSTICK (test code = RANDELL) 5.5 5.0-8.0 UA PROTEIN DIPSTICK (test code = PROU) 100 (2+) mg/dL NEGATIVE A UA UROBILINIOGEN DIPSTICK (test code = URO) Normal mg/dL NEGATIVE UA NITRITE DIPSTICK (test code = RAFIA) NEGATIVE NEGATIVE UA LEUKOCYTE ESTERASE W REFLEX (test code = LEUUR) NEGATIVE Jimmie/uL NEGATIVE UA WBC (test code = WBCU) per HPF 0-5 UA RBC (test code = RBCU) per HPF 0-5 UA EPITHELIAL CELLS (test code = EPIU) per HPF Few UA BACTERIA (test code = BACU) per HPF NONE Urine Source? Clean CatchDRUGS OF ABUSE SCREEN [id number] 07:21:00* Test Item Value Reference Range Interpretation Comments URN COCAINE (test code = COCAURN) <300 ng/mL URN CANNABINOIDS (test code = CANNABURN) <50 ng/mL URN AMPHETAMINE (test code = AMPHETURN) <1000 ng/mL URN BARBITURATE (test code = BARBITURN) <200 ng/mL URN BENZODIAZEPINE (test code = BENZOURN) <200 ng/mL URN OPIATES (test code = OPIATURN) <300 ng/mL URN PHENCYCLIDINE (PCP) (test code = PHENCURN) <25 ng/ mL URN METHADONE (test code = METHAURN) <300 ng/mL Urine Source? Clean CatchBASIC METABOLIC [id number] 07:19:00* Test Item Value Reference Range Interpretation Comments SODIUM (test code = NA) 140 mmol/L 136-145 N POTASSIUM (test code = K) 5.3 mmol/L 3.5-5.1 H CHLORIDE (test code = CL) 106.0 mmol/L 98-107 N CARBON DIOXIDE (test code = CO2) 19.0 mmol/L 21-32 L ANION GAP (test code = GAP) 20.3 10-20 H GLUCOSE (test code = GLU) 223 mg/dL 74-106 H BLOOD UREA NITROGEN (test code = BUN) 22 mg/dL 7-18 H GLOMERULAR FILTRATION RATE (test code = GFR) > 60 mL/min >=60 Estimated GFR by using Modified MDRD formula.Chronic kidney disease is defined as either kidney damageor GFR <60 mL/min/1.73 m2 for >3 months. CREATININE (test code = CREAT) 0.90 mg/dL 0.55-1.02 N Note change in reference range due to change in reagent. BUN/CREATININE RATIO (test code = BUN/CREA) 24.8 10-20 H CALCIUM (test code = CA) 9.3 mg/dL 8.5-10.1 N HEPATIC FUNCTION [id number] 07:19:00* Test Item Value Reference Range Interpretation Comments TOTAL PROTEIN (test code = PROT) 6.7 gram/dL 6.4-8.2 N ALBUMIN (test code = ALB) 3.1 g/dL 3.4-5.0 L GLOBULIN (test code = GLOB) 3.6 gram/dL 2.7-4.2 N ALBUMIN/GLOBULIN RATIO (test code = A/G) 0.9 0.75-1.50 N BILIRUBIN TOTAL (test code = BILT) 0.40 mg/dL 0.0-1.0 N BILIRUBIN DIRECT (test code = BILD) < 0.05 mg/dL 0.0-0.20 N SGOT/AST (test code = AST) 62 IUnit/L 15-37 H SGPT/ALT (test code = ALT) 41 IUnit/L 12-78 N ALKALINE PHOSPHATASE TOTAL (test code = ALKP) 137 IUnit/L 45-117 H Note change in reference range due to change in reagent. CREATINE KINASE (CK)2019-08-11 07:19:00* Test Item Value Reference Range Interpretation Comments CREATINE KINASE (CK) (test code = CK) 150 IUnit/L 26-208 N [id number] 07:19:00* Test Item Value Reference Range Interpretation Comments LIPASE (test code = LIP) 12 U/L 73.0-393.0 L [id number] 07:19:00* Test Item Value Reference Range Interpretation Comments MAGNESIUM (test code = MAG) 1.7 mg/dL 1.8-2.4 L [id number] 07:19:00* Test Item Value Reference Range Interpretation Comments TROPONIN-I (test code = TROPI) <0.015 ng/mL 0-0.045 N [id number] 07:19:00* Test Item Value Reference Range Interpretation Comments ACETAMINOPHEN (test code = ACET) < 10 mcg/mL 10-30 L A RANGE OF 10-30 mcg/mL IS A THERAPEUTIC RANGE. TOXIC CONCENTRATIONS: >150 mcg/mL AT 4 HOURS AFTER INGESTION >= 50 mcg/mL AT 12 HOURS AFTER INGESTION [id number] 07:19:00* Test Item Value Reference Range Interpretation Comments SALICYLATE (test code = DANNA) < 1.7 mg/dL 2.8-20.0 L [id number] 07:19:00* Test Item Value Reference Range Interpretation Comments ALCOHOL (test code = ALC) < 3 mg/dL 0.0-3.0 N -- INTERPRETIVE DATA NOTE: POSITIVE SCREENING RESULTS SHOULD BE CONSIDERED PRESUMPTIVE.WHEN COLLECTED FOR MEDICAL PURPOSES ONLY. SPECIMEN WILL NOTBE COLLECTED BY CHAIN OF CUSTODY.IF A CONFIRMATION OF POSITIVE RESULTS IS DESIRED, ACONFIRMATION TEST MUST BE REQUESTED BY THE PHYSICIAN AT ANADDITIONAL CHARGE TO THE PATIENT. [id number] 07:15:00* Test Item Value Reference Range Interpretation Comments AMMONIA (test code = AMM) 29 umol/L 11-32 N CBC W/AUTO [id number] 07:13:00* Test Item Value Reference Range Interpretation Comments WHITE BLOOD CELL (test code = WBC) 9.7 K/mm3 4.5-12.5 N RED BLOOD CELL (test code = RBC) 3.52 mill/mm3 3.7-5.2 L HEMOGLOBIN (test code = HGB) 10.5 gram/dL 11.5-15.5 L HEMATOCRIT (test code = HCT) 34.2 % 36.0-46.0 L MEAN CELL VOLUME (test code = MCV) 97.2 fL 80-98 N MEAN CELL HGB (test code = MCH) 29.8 picogram 27.0-33.0 N MEAN CELL HGB CONCETRATION (test code = MCHC) 30.7 gram/dL 33.0-36. 0 L RED CELL DISTRIBUTION WIDTH (test code = RDW) 11.9 % 11.6-16. 2 N RED CELL DISTRIBUTION WIDTH SD (test code = RDW-SD) 42.5 fL 37 .0-51.0 N PLATELET COUNT (test code = PLT) 35 K/mm3 150-450 LL Results called to [id number] by AUDREY 08/11/19 0713Critical results verified and read back by Nurse? Y MEAN PLATELET VOLUME (test code = MPV) TEST NOT PERFORMED fL 6.7-11 .0 NEUTROPHIL % (test code = NT%) 64.0 % 39.0-69.0 N IMMATURE GRANULOCYTE % (test code = IG%) 1.5 % 0.0-5.0 N LYMPHOCYTE % (test code = LY%) 23.0 % 25.0-55.0 L MONOCYTE % (test code = MO%) 8.9 % 0.0-10.0 N EOSINOPHIL % (test code = EO%) 2.4 % 0.0-5.0 N BASOPHIL % (test code = BA%) 0.2 % 0.0-1.0 N NUCLEATED RBC % (test code = NRBC%) 0.0 % 0-0 N NEUTROPHIL # (test code = NT#) 6.22 K/mm3 1.8-7.7 N IMMATURE GRANULOCYTE # (test code = IG#) 0.15 x10 3/uL 0-0.03 H LYMPHOCYTE # (test code = LY#) 2.23 K/mm3 1.0-5.0 N MONOCYTE # (test code = MO#) 0.86 K/mm3 0-0.8 H EOSINOPHIL # (test code = EO#) 0.23 K/mm3 0.0-0.5 N BASOPHIL # (test code = BA#) 0.02 K/mm3 0.0-0.2 N NUCLEATED RBC # (test code = NRBC#) 0.00 K/mm3 0.0-0.1 N MANUAL DIFF REQUIRED (test code = MDIFF) NO, ONLY SCAN NEEDED DIFFERENTIAL [id number] 07:13:00* Test Item Value Reference Range Interpretation Comments STAIN ACCEPTABILITY (test code = STN ACCEPTABLE) CABOT RINGS (test code = CAB) MORPHOLOGY COMMENT (test code = MOC) PLATELET ESTIMATE (test code = PLTEST) PLATELET MORPHOLOGY (test code = PLTMORPH) CBC W/AUTO [id number] 07:13:00* Test Item Value Reference Range Interpretation Comments WHITE BLOOD CELL (test code = WBC) 9.7 K/mm3 4.5-12.5 N RED BLOOD CELL (test code = RBC) 3.52 mill/mm3 3.7-5.2 L HEMOGLOBIN (test code = HGB) 10.5 gram/dL 11.5-15.5 L HEMATOCRIT (test code = HCT) 34.2 % 36.0-46.0 L MEAN CELL VOLUME (test code = MCV) 97.2 fL 80-98 N MEAN CELL HGB (test code = MCH) 29.8 picogram 27.0-33.0 N MEAN CELL HGB CONCETRATION (test code = MCHC) 30.7 gram/dL 33.0-36. 0 L RED CELL DISTRIBUTION WIDTH (test code = RDW) 11.9 % 11.6-16. 2 N RED CELL DISTRIBUTION WIDTH SD (test code = RDW-SD) 42.5 fL 37 .0-51.0 N PLATELET COUNT (test code = PLT) 35 K/mm3 150-450 LL Results called to [id number] by V.LAB.AUBREE 08/11/19 0713Critical results verified and read back by Nurse? Y MEAN PLATELET VOLUME (test code = MPV) TEST NOT PERFORMED fL 6.7-11 .0 NEUTROPHIL % (test code = NT%) 64.0 % 39.0-69.0 N IMMATURE GRANULOCYTE % (test code = IG%) 1.5 % 0.0-5.0 N LYMPHOCYTE % (test code = LY%) 23.0 % 25.0-55.0 L MONOCYTE % (test code = MO%) 8.9 % 0.0-10.0 N EOSINOPHIL % (test code = EO%) 2.4 % 0.0-5.0 N BASOPHIL % (test code = BA%) 0.2 % 0.0-1.0 N NUCLEATED RBC % (test code = NRBC%) 0.0 % 0-0 N NEUTROPHIL # (test code = NT#) 6.22 K/mm3 1.8-7.7 N IMMATURE GRANULOCYTE # (test code = IG#) 0.15 x10 3/uL 0-0.03 H LYMPHOCYTE # (test code = LY#) 2.23 K/mm3 1.0-5.0 N MONOCYTE # (test code = MO#) 0.86 K/mm3 0-0.8 H EOSINOPHIL # (test code = EO#) 0.23 K/mm3 0.0-0.5 N BASOPHIL # (test code = BA#) 0.02 K/mm3 0.0-0.2 N NUCLEATED RBC # (test code = NRBC#) 0.00 K/mm3 0.0-0.1 N MANUAL DIFF REQUIRED (test code = MDIFF) NO, ONLY SCAN NEEDED DIFFERENTIAL [id number] 07:13:00* Test Item Value Reference Range Interpretation Comments STAIN ACCEPTABILITY (test code = STN ACCEPTABLE) CABOT RINGS (test code = CAB) MORPHOLOGY COMMENT (test code = MOC) PLATELET ESTIMATE (test code = PLTEST) PLATELET MORPHOLOGY (test code = PLTMORPH) CBC W/AUTO [id number] 07:13:00* Test Item Value Reference Range Interpretation Comments WHITE BLOOD CELL (test code = WBC) 9.7 K/mm3 4.5-12.5 N RED BLOOD CELL (test code = RBC) 3.52 mill/mm3 3.7-5.2 L HEMOGLOBIN (test code = HGB) 10.5 gram/dL 11.5-15.5 L HEMATOCRIT (test code = HCT) 34.2 % 36.0-46.0 L MEAN CELL VOLUME (test code = MCV) 97.2 fL 80-98 N MEAN CELL HGB (test code = MCH) 29.8 picogram 27.0-33.0 N MEAN CELL HGB CONCETRATION (test code = MCHC) 30.7 gram/dL 33.0-36. 0 L RED CELL DISTRIBUTION WIDTH (test code = RDW) 11.9 % 11.6-16. 2 N RED CELL DISTRIBUTION WIDTH SD (test code = RDW-SD) 42.5 fL 37 .0-51.0 N PLATELET COUNT (test code = PLT) 35 K/mm3 150-450 LL Results called to [id number] by AUDREY 08/11/19 0713Critical results verified and read back by Nurse? Y MEAN PLATELET VOLUME (test code = MPV) TEST NOT PERFORMED fL 6.7-11 .0 NEUTROPHIL % (test code = NT%) 64.0 % 39.0-69.0 N IMMATURE GRANULOCYTE % (test code = IG%) 1.5 % 0.0-5.0 N LYMPHOCYTE % (test code = LY%) 23.0 % 25.0-55.0 L MONOCYTE % (test code = MO%) 8.9 % 0.0-10.0 N EOSINOPHIL % (test code = EO%) 2.4 % 0.0-5.0 N BASOPHIL % (test code = BA%) 0.2 % 0.0-1.0 N NUCLEATED RBC % (test code = NRBC%) 0.0 % 0-0 N NEUTROPHIL # (test code = NT#) 6.22 K/mm3 1.8-7.7 N IMMATURE GRANULOCYTE # (test code = IG#) 0.15 x10 3/uL 0-0.03 H LYMPHOCYTE # (test code = LY#) 2.23 K/mm3 1.0-5.0 N MONOCYTE # (test code = MO#) 0.86 K/mm3 0-0.8 H EOSINOPHIL # (test code = EO#) 0.23 K/mm3 0.0-0.5 N BASOPHIL # (test code = BA#) 0.02 K/mm3 0.0-0.2 N NUCLEATED RBC # (test code = NRBC#) 0.00 K/mm3 0.0-0.1 N MANUAL DIFF REQUIRED (test code = MDIFF) NO, ONLY SCAN NEEDED DIFFERENTIAL [id number] 07:13:00* Test Item Value Reference Range Interpretation Comments STAIN ACCEPTABILITY (test code = STN ACCEPTABLE) MORPHOLOGY COMMENT (test code = MOC) PLATELET ESTIMATE (test code = PLTEST) PLATELET MORPHOLOGY (test code = PLTMORPH) CBC W/AUTO [id number] 07:13:00* Test Item Value Reference Range Interpretation Comments WHITE BLOOD CELL (test code = WBC) 9.7 K/mm3 4.5-12.5 N RED BLOOD CELL (test code = RBC) 3.52 mill/mm3 3.7-5.2 L HEMOGLOBIN (test code = HGB) 10.5 gram/dL 11.5-15.5 L HEMATOCRIT (test code = HCT) 34.2 % 36.0-46.0 L MEAN CELL VOLUME (test code = MCV) 97.2 fL 80-98 N MEAN CELL HGB (test code = MCH) 29.8 picogram 27.0-33.0 N MEAN CELL HGB CONCETRATION (test code = MCHC) 30.7 gram/dL 33.0-36. 0 L RED CELL DISTRIBUTION WIDTH (test code = RDW) 11.9 % 11.6-16. 2 N RED CELL DISTRIBUTION WIDTH SD (test code = RDW-SD) 42.5 fL 37 .0-51.0 N PLATELET COUNT (test code = PLT) 35 K/mm3 150-450 LL Results called to [id number] by V.LAB.AUBREE 08/11/19 0713Critical results verified and read back by Nurse? Y MEAN PLATELET VOLUME (test code = MPV) TEST NOT PERFORMED fL 6.7-11 .0 NEUTROPHIL % (test code = NT%) 64.0 % 39.0-69.0 N IMMATURE GRANULOCYTE % (test code = IG%) 1.5 % 0.0-5.0 N LYMPHOCYTE % (test code = LY%) 23.0 % 25.0-55.0 L MONOCYTE % (test code = MO%) 8.9 % 0.0-10.0 N EOSINOPHIL % (test code = EO%) 2.4 % 0.0-5.0 N BASOPHIL % (test code = BA%) 0.2 % 0.0-1.0 N NUCLEATED RBC % (test code = NRBC%) 0.0 % 0-0 N NEUTROPHIL # (test code = NT#) 6.22 K/mm3 1.8-7.7 N IMMATURE GRANULOCYTE # (test code = IG#) 0.15 x10 3/uL 0-0.03 H LYMPHOCYTE # (test code = LY#) 2.23 K/mm3 1.0-5.0 N MONOCYTE # (test code = MO#) 0.86 K/mm3 0-0.8 H EOSINOPHIL # (test code = EO#) 0.23 K/mm3 0.0-0.5 N BASOPHIL # (test code = BA#) 0.02 K/mm3 0.0-0.2 N NUCLEATED RBC # (test code = NRBC#) 0.00 K/mm3 0.0-0.1 N MANUAL DIFF REQUIRED (test code = MDIFF) NO, ONLY SCAN NEEDED DIFFERENTIAL [id number] 07:13:00* Test Item Value Reference Range Interpretation Comments STAIN ACCEPTABILITY (test code = STN ACCEPTABLE) CABOT RINGS (test code = CAB) MORPHOLOGY COMMENT (test code = MOC) PLATELET ESTIMATE (test code = PLTEST) PLATELET MORPHOLOGY (test code = PLTMORPH) BASIC METABOLIC [id number] 07:12:00* Test Item Value Reference Range Interpretation Comments SODIUM (test code = NA) 140 mmol/L 136-145 N POTASSIUM (test code = K) 5.3 mmol/L 3.5-5.1 H CHLORIDE (test code = CL) 106.0 mmol/L 98-107 N CARBON DIOXIDE (test code = CO2) mmol/L 21-32 ANION GAP (test code = GAP) 10-20 GLUCOSE (test code = GLU) mg/dL 74-106 BLOOD UREA NITROGEN (test code = BUN) mg/dL 7-18 GLOMERULAR FILTRATION RATE (test code = GFR) mL/min >=60 CREATININE (test code = CREAT) mg/dL 0.55-1.02 BUN/CREATININE RATIO (test code = BUN/CREA) 10-20 CALCIUM (test code = CA) mg/dL 8.5-10.1 HEPATIC FUNCTION [id number] 07:12:00* Test Item Value Reference Range Interpretation Comments TOTAL PROTEIN (test code = PROT) gram/dL 6.4-8.2 ALBUMIN (test code = ALB) g/dL 3.4-5.0 GLOBULIN (test code = GLOB) gram/dL 2.7-4.2 ALBUMIN/GLOBULIN RATIO (test code = A/G) 0.75-1.50 BILIRUBIN TOTAL (test code = BILT) mg/dL 0.0-1.0 BILIRUBIN DIRECT (test code = BILD) mg/dL 0.0-0.20 SGOT/AST (test code = AST) IUnit/L 15-37 SGPT/ALT (test code = ALT) IUnit/L 12-78 ALKALINE PHOSPHATASE TOTAL (test code = ALKP) IUnit/L 45-117 CREATINE KINASE (CK)2019-08-11 07:12:00* Test Item Value Reference Range Interpretation Comments CREATINE KINASE (CK) (test code = CK) IUnit/L 26-208 [id number] 07:12:00* Test Item Value Reference Range Interpretation Comments LIPASE (test code = LIP) U/L 73.0-393.0 [id number] 07:12:00* Test Item Value Reference Range Interpretation Comments MAGNESIUM (test code = MAG) mg/dL 1.8-2.4 [id number] 07:12:00* Test Item Value Reference Range Interpretation Comments TROPONIN-I (test code = TROPI) ng/mL 0-0.045 [id number] 07:12:00* Test Item Value Reference Range Interpretation Comments ACETAMINOPHEN (test code = ACET) mcg/mL 10-30 [id number] 07:12:00* Test Item Value Reference Range Interpretation Comments SALICYLATE (test code = DANNA) mg/dL 2.8-20.0 [id number] 07:12:00* Test Item Value Reference Range Interpretation Comments ALCOHOL (test code = ALC) mg/dL 0-3 - XR CHEST 1 [id number] 06:57:00 FAX: Sam Rosado [phone] [place]: B St: DIS Name: MOJGAN SAUCEDO [facility] : [birth year] Age/S: 69/F [address] [facility] Unit #: [id number] [place] [address] Phys: Sam Carrillo MD Acct: [id number] Dis Date: 1901020 Status: DIS IN PHONE #: [phone] Exam Date: 08/11/2019 06 FAX #: [phone] Reason: SHORTNESS OF BREATH EXAMS: CPT CODE: [id number] XR CHEST 1 V [id number] EXAM: - XR CHEST 1 V HISTORY: Shortness of breath. COMPARISON: December 25, 2018. FINDINGS: Single AP view of the chest is provided. Tracheo stomy tube is unchanged. Previous central vascular catheter is been removed. Heart size and vascularity are within normal limits. The l ungs are clear of focal consolidation. No effusion, pneumothorax, or acut e osseous abnormality. Shoulder degenerative changes are present bilateral ly. IMPRESSION: No consolidation or effusion. * * at 0692 Reported and signed by: Mahendra Amos MD CC: Sam Yancey MD Technologist: Wicho Herring RT(R) Trnwyrd Date/Time/By: 08/11/2019 (065 7) : By: [email or web address] Orig Print D/T: S: 08/11/2019 (1256) PAGE 1 Signed Report - XR CHEST 1 [id number] 06:57:00 FAX: Sam Rosado [phone] [place]: St: REG Name: Faith LOWEMOJGAN JESSE [facility] : [birth year] Age/S: 69/F [address] Unit #: [id number] Loc: [place] [address] Phys: Sam Carrillo MD Acct: [id number] Dis Date: Status: REG ER PHONE #: [phone] Exam Date: 08/11/2019630 FAX #: [phone] Reason: SHORTNESS OF BREATH EXAMS: CPT CODE: [id number] XR CHEST 1 V [id number] EXAM: - XR CHEST 1 V HISTORY: Shortness of breath. COMPARISON: December 25, 2018. FINDINGS: Single AP view of the chest is provided. Tracheo stomy tube is unchanged. Previous central vascular catheter is been removed. Heart size and vascularity are within normal limits. The l ungs are clear of focal consolidation. No effusion, pneumothorax, or acut e osseous abnormality. Shoulder degenerative changes are present bilateral ly. IMPRESSION: No consolidation or effusion. * * at 0681 Reported and signed by: Mahendra Amos MD CC: Sam Yancey MD Technologist: Wicho Herring RT(R) Trnscrd Date/Time/By: 08/11/2019 (065 7) : By: [email or web address] Orig Print D/T: S: 08/11/2019 (8856) PAGE 1 Signed Report - XR CHEST 1 [id number] 06:57:00 FAX: Sam Rosado [phone] [place]: St: DIS Name: MOJGAN SAUCEDO [facility] : [birth year] Age/S: 69/F [address] [facility] Unit #: [id number] Loc: V.9 [place] [address] Phys: Sam Carrillo MD Acct: [id number] Dis Date: 1901020 Status: DIS IN PHONE #: [phone] Exam Date: 08/11/2019630 FAX #: [phone] Reason: SHORTNESS OF BREATH EXAMS: CPT CODE: [id number] XR CHEST 1 V [id number] EXAM: - XR CHEST 1 V HISTORY: Shortness of breath. COMPARISON: December 25, 2018. FINDINGS: Single AP view of the chest is provided. Tracheo stomy tube is unchanged. Previous central vascular catheter is been removed. Heart size and vascularity are within normal limits. The l ungs are clear of focal consolidation. No effusion, pneumothorax, or acut e osseous abnormality. Shoulder degenerative changes are present bilateral ly. IMPRESSION: No consolidation or effusion. * * at 0657 Reported and signed by: Mahendra Amos MD CC: Sam Yancey MD Technologist: Wicho Herring RT(R) Trnscrd Date/Time/By: 08/11/2019 (065 7) : By: [email or web address] Orig Print D/T: S: 08/11/2019 (7359) PAGE 1 Signed Report [id number] 06:37:00* Test Item Value Reference Range Interpretation Comments GLUBED (test code = GLUBED) 193 mg/dL 74-106 H Performed by certified pulping machine operator at [facility] CBC W/AUTO [id number] 11:41:00* Test Item Value Reference Range Interpretation Comments WHITE BLOOD CELL (test code = WBC) 3.8 K/mm3 4.5-12.5 L RED BLOOD CELL (test code = RBC) 3.46 mill/mm3 3.7-5.2 L HEMOGLOBIN (test code = HGB) 10.2 gram/dL 11.5-15.5 L HEMATOCRIT (test code = HCT) 32.3 % 36.0-46.0 L MEAN CELL VOLUME (test code = MCV) 93.4 fL 80-98 N MEAN CELL HGB (test code = MCH) 29.5 picogram 27.0-33.0 N MEAN CELL HGB CONCETRATION (test code = MCHC) 31.6 gram/dL 33.0-36. 0 L RED CELL DISTRIBUTION WIDTH (test code = RDW) 12.1 % 11.6-16. 2 N RED CELL DISTRIBUTION WIDTH SD (test code = RDW-SD) 41.6 fL 37 .0-51.0 N PLATELET COUNT (test code = PLT) 44 K/mm3 150-450 LL Results called to [id number] by [facility] 08/06/19 1010Critical results verified and read back by Nurse? Y NEUTROPHIL % (test code = NT%) 59.6 % 39.0-69.0 N IMMATURE GRANULOCYTE % (test code = IG%) 0.3 % 0.0-5.0 N LYMPHOCYTE % (test code = LY%) 29.3 % 25.0-55.0 N MONOCYTE % (test code = MO%) 5.8 % 0.0-10.0 N EOSINOPHIL % (test code = EO%) 4.2 % 0.0-5.0 N BASOPHIL % (test code = BA%) 0.8 % 0.0-1.0 N NUCLEATED RBC % (test code = NRBC%) 0.0 % 0-0 N NEUTROPHIL # (test code = NT#) 2.28 K/mm3 1.8-7.7 N IMMATURE GRANULOCYTE # (test code = IG#) 0.01 x10 3/uL 0-0.03 N LYMPHOCYTE # (test code = LY#) 1.12 K/mm3 1.0-5.0 N MONOCYTE # (test code = MO#) 0.22 K/mm3 0-0.8 N EOSINOPHIL # (test code = EO#) 0.16 K/mm3 0.0-0.5 N BASOPHIL # (test code = BA#) 0.03 K/mm3 0.0-0.2 N NUCLEATED RBC # (test code = NRBC#) 0.00 K/mm3 0.0-0.1 N MANUAL DIFF REQUIRED (test code = MDIFF) NO, ONLY SCAN NEEDED DIFFERENTIAL [id number] 11:41:00* Test Item Value Reference Range Interpretation Comments STAIN ACCEPTABILITY (test code = STN ACCEPTABLE) STAIN ACCEPTABLE PLATELET ESTIMATE (test code = PLTEST) DECREASED PLATELET MORPHOLOGY (test code = PLTMORPH) NORMAL CBC W/AUTO [id number] 10:11:00* Test Item Value Reference Range Interpretation Comments WHITE BLOOD CELL (test code = WBC) 3.8 K/mm3 4.5-12.5 L RED BLOOD CELL (test code = RBC) 3.46 mill/mm3 3.7-5.2 L HEMOGLOBIN (test code = HGB) 10.2 gram/dL 11.5-15.5 L HEMATOCRIT (test code = HCT) 32.3 % 36.0-46.0 L MEAN CELL VOLUME (test code = MCV) 93.4 fL 80-98 N MEAN CELL HGB (test code = MCH) 29.5 picogram 27.0-33.0 N MEAN CELL HGB CONCETRATION (test code = MCHC) 31.6 gram/dL 33.0-36. 0 L RED CELL DISTRIBUTION WIDTH (test code = RDW) 12.1 % 11.6-16. 2 N RED CELL DISTRIBUTION WIDTH SD (test code = RDW-SD) 41.6 fL 37 .0-51.0 N PLATELET COUNT (test code = PLT) 44 K/mm3 150-450 LL Results called to [id number] by [facility] 08/06/19 1010Critical results verified and read back by Nurse? Y NEUTROPHIL % (test code = NT%) 59.6 % 39.0-69.0 N IMMATURE GRANULOCYTE % (test code = IG%) 0.3 % 0.0-5.0 N LYMPHOCYTE % (test code = LY%) 29.3 % 25.0-55.0 N MONOCYTE % (test code = MO%) 5.8 % 0.0-10.0 N EOSINOPHIL % (test code = EO%) 4.2 % 0.0-5.0 N BASOPHIL % (test code = BA%) 0.8 % 0.0-1.0 N NUCLEATED RBC % (test code = NRBC%) 0.0 % 0-0 N NEUTROPHIL # (test code = NT#) 2.28 K/mm3 1.8-7.7 N IMMATURE GRANULOCYTE # (test code = IG#) 0.01 x10 3/uL 0-0.03 N LYMPHOCYTE # (test code = LY#) 1.12 K/mm3 1.0-5.0 N MONOCYTE # (test code = MO#) 0.22 K/mm3 0-0.8 N EOSINOPHIL # (test code = EO#) 0.16 K/mm3 0.0-0.5 N BASOPHIL # (test code = BA#) 0.03 K/mm3 0.0-0.2 N NUCLEATED RBC # (test code = NRBC#) 0.00 K/mm3 0.0-0.1 N MANUAL DIFF REQUIRED (test code = MDIFF) NO, ONLY SCAN NEEDED DIFFERENTIAL [id number] 10:11:00* Test Item Value Reference Range Interpretation Comments STAIN ACCEPTABILITY (test code = STN ACCEPTABLE) CABOT RINGS (test code = CAB) MORPHOLOGY COMMENT (test code = MOC) PLATELET ESTIMATE (test code = PLTEST) PLATELET MORPHOLOGY (test code = PLTMORPH) CBC W/AUTO [id number] 10:11:00* Test Item Value Reference Range Interpretation Comments WHITE BLOOD CELL (test code = WBC) 3.8 K/mm3 4.5-12.5 L RED BLOOD CELL (test code = RBC) 3.46 mill/mm3 3.7-5.2 L HEMOGLOBIN (test code = HGB) 10.2 gram/dL 11.5-15.5 L HEMATOCRIT (test code = HCT) 32.3 % 36.0-46.0 L MEAN CELL VOLUME (test code = MCV) 93.4 fL 80-98 N MEAN CELL HGB (test code = MCH) 29.5 picogram 27.0-33.0 N MEAN CELL HGB CONCETRATION (test code = MCHC) 31.6 gram/dL 33.0-36. 0 L RED CELL DISTRIBUTION WIDTH (test code = RDW) 12.1 % 11.6-16. 2 N RED CELL DISTRIBUTION WIDTH SD (test code = RDW-SD) 41.6 fL 37 .0-51.0 N PLATELET COUNT (test code = PLT) 44 K/mm3 150-450 LL Results called to [id number] by [facility] 08/06/19 1010Critical results verified and read back by Nurse? Y NEUTROPHIL % (test code = NT%) 59.6 % 39.0-69.0 N IMMATURE GRANULOCYTE % (test code = IG%) 0.3 % 0.0-5.0 N LYMPHOCYTE % (test code = LY%) 29.3 % 25.0-55.0 N MONOCYTE % (test code = MO%) 5.8 % 0.0-10.0 N EOSINOPHIL % (test code = EO%) 4.2 % 0.0-5.0 N BASOPHIL % (test code = BA%) 0.8 % 0.0-1.0 N NUCLEATED RBC % (test code = NRBC%) 0.0 % 0-0 N NEUTROPHIL # (test code = NT#) 2.28 K/mm3 1.8-7.7 N IMMATURE GRANULOCYTE # (test code = IG#) 0.01 x10 3/uL 0-0.03 N LYMPHOCYTE # (test code = LY#) 1.12 K/mm3 1.0-5.0 N MONOCYTE # (test code = MO#) 0.22 K/mm3 0-0.8 N EOSINOPHIL # (test code = EO#) 0.16 K/mm3 0.0-0.5 N BASOPHIL # (test code = BA#) 0.03 K/mm3 0.0-0.2 N NUCLEATED RBC # (test code = NRBC#) 0.00 K/mm3 0.0-0.1 N MANUAL DIFF REQUIRED (test code = MDIFF) NO, ONLY SCAN NEEDED DIFFERENTIAL [id number] 10:11:00* Test Item Value Reference Range Interpretation Comments STAIN ACCEPTABILITY (test code = STN ACCEPTABLE) MORPHOLOGY COMMENT (test code = MOC) PLATELET ESTIMATE (test code = PLTEST) PLATELET MORPHOLOGY (test code = PLTMORPH) CBC W/AUTO [id number] 10:11:00* Test Item Value Reference Range Interpretation Comments WHITE BLOOD CELL (test code = WBC) 3.8 K/mm3 4.5-12.5 L RED BLOOD CELL (test code = RBC) 3.46 mill/mm3 3.7-5.2 L HEMOGLOBIN (test code = HGB) 10.2 gram/dL 11.5-15.5 L HEMATOCRIT (test code = HCT) 32.3 % 36.0-46.0 L MEAN CELL VOLUME (test code = MCV) 93.4 fL 80-98 N MEAN CELL HGB (test code = MCH) 29.5 picogram 27.0-33.0 N MEAN CELL HGB CONCETRATION (test code = MCHC) 31.6 gram/dL 33.0-36. 0 L RED CELL DISTRIBUTION WIDTH (test code = RDW) 12.1 % 11.6-16. 2 N RED CELL DISTRIBUTION WIDTH SD (test code = RDW-SD) 41.6 fL 37 .0-51.0 N PLATELET COUNT (test code = PLT) 44 K/mm3 150-450 LL Results called to [id number] by ANJALI 08/06/19 1010Critical results verified and read back by Nurse? Y NEUTROPHIL % (test code = NT%) 59.6 % 39.0-69.0 N IMMATURE GRANULOCYTE % (test code = IG%) 0.3 % 0.0-5.0 N LYMPHOCYTE % (test code = LY%) 29.3 % 25.0-55.0 N MONOCYTE % (test code = MO%) 5.8 % 0.0-10.0 N EOSINOPHIL % (test code = EO%) 4.2 % 0.0-5.0 N BASOPHIL % (test code = BA%) 0.8 % 0.0-1.0 N NUCLEATED RBC % (test code = NRBC%) 0.0 % 0-0 N NEUTROPHIL # (test code = NT#) 2.28 K/mm3 1.8-7.7 N IMMATURE GRANULOCYTE # (test code = IG#) 0.01 x10 3/uL 0-0.03 N LYMPHOCYTE # (test code = LY#) 1.12 K/mm3 1.0-5.0 N MONOCYTE # (test code = MO#) 0.22 K/mm3 0-0.8 N EOSINOPHIL # (test code = EO#) 0.16 K/mm3 0.0-0.5 N BASOPHIL # (test code = BA#) 0.03 K/mm3 0.0-0.2 N NUCLEATED RBC # (test code = NRBC#) 0.00 K/mm3 0.0-0.1 N MANUAL DIFF REQUIRED (test code = MDIFF) NO, ONLY SCAN NEEDED DIFFERENTIAL [id number] 10:11:00* Test Item Value Reference Range Interpretation Comments STAIN ACCEPTABILITY (test code = STN ACCEPTABLE) MORPHOLOGY COMMENT (test code = MOC) PLATELET ESTIMATE (test code = PLTEST) PLATELET MORPHOLOGY (test code = PLTMORPH) CBC W/AUTO [id number] 10:11:00* Test Item Value Reference Range Interpretation Comments WHITE BLOOD CELL (test code = WBC) 3.8 K/mm3 4.5-12.5 L RED BLOOD CELL (test code = RBC) 3.46 mill/mm3 3.7-5.2 L HEMOGLOBIN (test code = HGB) 10.2 gram/dL 11.5-15.5 L HEMATOCRIT (test code = HCT) 32.3 % 36.0-46.0 L MEAN CELL VOLUME (test code = MCV) 93.4 fL 80-98 N MEAN CELL HGB (test code = MCH) 29.5 picogram 27.0-33.0 N MEAN CELL HGB CONCETRATION (test code = MCHC) 31.6 gram/dL 33.0-36. 0 L RED CELL DISTRIBUTION WIDTH (test code = RDW) 12.1 % 11.6-16. 2 N RED CELL DISTRIBUTION WIDTH SD (test code = RDW-SD) 41.6 fL 37 .0-51.0 N PLATELET COUNT (test code = PLT) 44 K/mm3 150-450 LL Results called to [id number] by [facility] 08/06/19 1010Critical results verified and read back by Nurse? Y NEUTROPHIL % (test code = NT%) 59.6 % 39.0-69.0 N IMMATURE GRANULOCYTE % (test code = IG%) 0.3 % 0.0-5.0 N LYMPHOCYTE % (test code = LY%) 29.3 % 25.0-55.0 N MONOCYTE % (test code = MO%) 5.8 % 0.0-10.0 N EOSINOPHIL % (test code = EO%) 4.2 % 0.0-5.0 N BASOPHIL % (test code = BA%) 0.8 % 0.0-1.0 N NUCLEATED RBC % (test code = NRBC%) 0.0 % 0-0 N NEUTROPHIL # (test code = NT#) 2.28 K/mm3 1.8-7.7 N IMMATURE GRANULOCYTE # (test code = IG#) 0.01 x10 3/uL 0-0.03 N LYMPHOCYTE # (test code = LY#) 1.12 K/mm3 1.0-5.0 N MONOCYTE # (test code = MO#) 0.22 K/mm3 0-0.8 N EOSINOPHIL # (test code = EO#) 0.16 K/mm3 0.0-0.5 N BASOPHIL # (test code = BA#) 0.03 K/mm3 0.0-0.2 N NUCLEATED RBC # (test code = NRBC#) 0.00 K/mm3 0.0-0.1 N MANUAL DIFF REQUIRED (test code = MDIFF) NO, ONLY SCAN NEEDED DIFFERENTIAL [id number] 10:11:00* Test Item Value Reference Range Interpretation Comments STAIN ACCEPTABILITY (test code = STN ACCEPTABLE) CABOT RINGS (test code = CAB) MORPHOLOGY COMMENT (test code = MOC) PLATELET ESTIMATE (test code = PLTEST) PLATELET MORPHOLOGY (test code = PLTMORPH) CBC W/AUTO [id number] 06:58:00* Test Item Value Reference Range Interpretation Comments WHITE BLOOD CELL (test code = WBC) 4.4 K/mm3 4.5-12.5 L RED BLOOD CELL (test code = RBC) 3.30 mill/mm3 3.7-5.2 L HEMOGLOBIN (test code = HGB) 9.7 gram/dL 11.5-15.5 L HEMATOCRIT (test code = HCT) 30.8 % 36.0-46.0 L MEAN CELL VOLUME (test code = MCV) 93.3 fL 80-98 N MEAN CELL HGB (test code = MCH) 29.4 picogram 27.0-33.0 N MEAN CELL HGB CONCETRATION (test code = MCHC) 31.5 gram/dL 33.0-36. 0 L RED CELL DISTRIBUTION WIDTH (test code = RDW) 11.9 % 11.6-16. 2 N RED CELL DISTRIBUTION WIDTH SD (test code = RDW-SD) 41.0 fL 37 .0-51.0 N PLATELET COUNT (test code = PLT) 39 K/mm3 150-450 LL Results called to [id number] by V.LAB.AG1 08/04/19 0633Critical results verified and read back by Nurse? Y MEAN PLATELET VOLUME (test code = MPV) TEST NOT PERFORMED fL 6.7-11 .0 NEUTROPHIL % (test code = NT%) 50.5 % 39.0-69.0 N IMMATURE GRANULOCYTE % (test code = IG%) 0.5 % 0.0-5.0 N LYMPHOCYTE % (test code = LY%) 36.3 % 25.0-55.0 N MONOCYTE % (test code = MO%) 7.7 % 0.0-10.0 N EOSINOPHIL % (test code = EO%) 4.3 % 0.0-5.0 N BASOPHIL % (test code = BA%) 0.7 % 0.0-1.0 N NUCLEATED RBC % (test code = NRBC%) 0.0 % 0-0 N NEUTROPHIL # (test code = NT#) 2.23 K/mm3 1.8-7.7 N IMMATURE GRANULOCYTE # (test code = IG#) 0.02 x10 3/uL 0-0.03 N LYMPHOCYTE # (test code = LY#) 1.60 K/mm3 1.0-5.0 N MONOCYTE # (test code = MO#) 0.34 K/mm3 0-0.8 N EOSINOPHIL # (test code = EO#) 0.19 K/mm3 0.0-0.5 N BASOPHIL # (test code = BA#) 0.03 K/mm3 0.0-0.2 N NUCLEATED RBC # (test code = NRBC#) 0.00 K/mm3 0.0-0.1 N MANUAL DIFF REQUIRED (test code = MDIFF) NO, ONLY SCAN NEEDED DIFFERENTIAL [id number] 06:58:00* Test Item Value Reference Range Interpretation Comments STAIN ACCEPTABILITY (test code = STN ACCEPTABLE) STAIN ACCEPTABLE PLATELET ESTIMATE (test code = PLTEST) DECREASED PLATELET MORPHOLOGY (test code = PLTMORPH) NORMAL CBC W/AUTO [id number] 06:34:00* Test Item Value Reference Range Interpretation Comments WHITE BLOOD CELL (test code = WBC) 4.4 K/mm3 4.5-12.5 L RED BLOOD CELL (test code = RBC) 3.30 mill/mm3 3.7-5.2 L HEMOGLOBIN (test code = HGB) 9.7 gram/dL 11.5-15.5 L HEMATOCRIT (test code = HCT) 30.8 % 36.0-46.0 L MEAN CELL VOLUME (test code = MCV) 93.3 fL 80-98 N MEAN CELL HGB (test code = MCH) 29.4 picogram 27.0-33.0 N MEAN CELL HGB CONCETRATION (test code = MCHC) 31.5 gram/dL 33.0-36. 0 L RED CELL DISTRIBUTION WIDTH (test code = RDW) 11.9 % 11.6-16. 2 N RED CELL DISTRIBUTION WIDTH SD (test code = RDW-SD) 41.0 fL 37 .0-51.0 N PLATELET COUNT (test code = PLT) 39 K/mm3 150-450 LL Results called to [id number] by CORBYAG1 08/04/19 0633Critical results verified and read back by Nurse? Y MEAN PLATELET VOLUME (test code = MPV) TEST NOT PERFORMED fL 6.7-11 .0 NEUTROPHIL % (test code = NT%) 50.5 % 39.0-69.0 N IMMATURE GRANULOCYTE % (test code = IG%) 0.5 % 0.0-5.0 N LYMPHOCYTE % (test code = LY%) 36.3 % 25.0-55.0 N MONOCYTE % (test code = MO%) 7.7 % 0.0-10.0 N EOSINOPHIL % (test code = EO%) 4.3 % 0.0-5.0 N BASOPHIL % (test code = BA%) 0.7 % 0.0-1.0 N NUCLEATED RBC % (test code = NRBC%) 0.0 % 0-0 N NEUTROPHIL # (test code = NT#) 2.23 K/mm3 1.8-7.7 N IMMATURE GRANULOCYTE # (test code = IG#) 0.02 x10 3/uL 0-0.03 N LYMPHOCYTE # (test code = LY#) 1.60 K/mm3 1.0-5.0 N MONOCYTE # (test code = MO#) 0.34 K/mm3 0-0.8 N EOSINOPHIL # (test code = EO#) 0.19 K/mm3 0.0-0.5 N BASOPHIL # (test code = BA#) 0.03 K/mm3 0.0-0.2 N NUCLEATED RBC # (test code = NRBC#) 0.00 K/mm3 0.0-0.1 N MANUAL DIFF REQUIRED (test code = MDIFF) NO, ONLY SCAN NEEDED DIFFERENTIAL [id number] 06:34:00* Test Item Value Reference Range Interpretation Comments STAIN ACCEPTABILITY (test code = STN ACCEPTABLE) CABOT RINGS (test code = CAB) MORPHOLOGY COMMENT (test code = MOC) PLATELET ESTIMATE (test code = PLTEST) PLATELET MORPHOLOGY (test code = PLTMORPH) CBC W/AUTO [id number] 06:34:00* Test Item Value Reference Range Interpretation Comments WHITE BLOOD CELL (test code = WBC) 4.4 K/mm3 4.5-12.5 L RED BLOOD CELL (test code = RBC) 3.30 mill/mm3 3.7-5.2 L HEMOGLOBIN (test code = HGB) 9.7 gram/dL 11.5-15.5 L HEMATOCRIT (test code = HCT) 30.8 % 36.0-46.0 L MEAN CELL VOLUME (test code = MCV) 93.3 fL 80-98 N MEAN CELL HGB (test code = MCH) 29.4 picogram 27.0-33.0 N MEAN CELL HGB CONCETRATION (test code = MCHC) 31.5 gram/dL 33.0-36. 0 L RED CELL DISTRIBUTION WIDTH (test code = RDW) 11.9 % 11.6-16. 2 N RED CELL DISTRIBUTION WIDTH SD (test code = RDW-SD) 41.0 fL 37 .0-51.0 N PLATELET COUNT (test code = PLT) 39 K/mm3 150-450 LL Results called to [id number] by [email or web address] 08/04/19 0633Critical results verified and read back by Nurse? Y MEAN PLATELET VOLUME (test code = MPV) TEST NOT PERFORMED fL 6.7-11 .0 NEUTROPHIL % (test code = NT%) 50.5 % 39.0-69.0 N IMMATURE GRANULOCYTE % (test code = IG%) 0.5 % 0.0-5.0 N LYMPHOCYTE % (test code = LY%) 36.3 % 25.0-55.0 N MONOCYTE % (test code = MO%) 7.7 % 0.0-10.0 N EOSINOPHIL % (test code = EO%) 4.3 % 0.0-5.0 N BASOPHIL % (test code = BA%) 0.7 % 0.0-1.0 N NUCLEATED RBC % (test code = NRBC%) 0.0 % 0-0 N NEUTROPHIL # (test code = NT#) 2.23 K/mm3 1.8-7.7 N IMMATURE GRANULOCYTE # (test code = IG#) 0.02 x10 3/uL 0-0.03 N LYMPHOCYTE # (test code = LY#) 1.60 K/mm3 1.0-5.0 N MONOCYTE # (test code = MO#) 0.34 K/mm3 0-0.8 N EOSINOPHIL # (test code = EO#) 0.19 K/mm3 0.0-0.5 N BASOPHIL # (test code = BA#) 0.03 K/mm3 0.0-0.2 N NUCLEATED RBC # (test code = NRBC#) 0.00 K/mm3 0.0-0.1 N MANUAL DIFF REQUIRED (test code = MDIFF) NO, ONLY SCAN NEEDED DIFFERENTIAL [id number] 06:34:00* Test Item Value Reference Range Interpretation Comments STAIN ACCEPTABILITY (test code = STN ACCEPTABLE) CABOT RINGS (test code = CAB) MORPHOLOGY COMMENT (test code = MOC) PLATELET ESTIMATE (test code = PLTEST) PLATELET MORPHOLOGY (test code = PLTMORPH) CBC W/AUTO [id number] 06:34:00* Test Item Value Reference Range Interpretation Comments WHITE BLOOD CELL (test code = WBC) 4.4 K/mm3 4.5-12.5 L RED BLOOD CELL (test code = RBC) 3.30 mill/mm3 3.7-5.2 L HEMOGLOBIN (test code = HGB) 9.7 gram/dL 11.5-15.5 L HEMATOCRIT (test code = HCT) 30.8 % 36.0-46.0 L MEAN CELL VOLUME (test code = MCV) 93.3 fL 80-98 N MEAN CELL HGB (test code = MCH) 29.4 picogram 27.0-33.0 N MEAN CELL HGB CONCETRATION (test code = MCHC) 31.5 gram/dL 33.0-36. 0 L RED CELL DISTRIBUTION WIDTH (test code = RDW) 11.9 % 11.6-16. 2 N RED CELL DISTRIBUTION WIDTH SD (test code = RDW-SD) 41.0 fL 37 .0-51.0 N PLATELET COUNT (test code = PLT) 39 K/mm3 150-450 LL Results called to [id number] by [email or web address] 08/04/19 0633Critical results verified and read back by Nurse? Y MEAN PLATELET VOLUME (test code = MPV) TEST NOT PERFORMED fL 6.7-11 .0 NEUTROPHIL % (test code = NT%) 50.5 % 39.0-69.0 N IMMATURE GRANULOCYTE % (test code = IG%) 0.5 % 0.0-5.0 N LYMPHOCYTE % (test code = LY%) 36.3 % 25.0-55.0 N MONOCYTE % (test code = MO%) 7.7 % 0.0-10.0 N EOSINOPHIL % (test code = EO%) 4.3 % 0.0-5.0 N BASOPHIL % (test code = BA%) 0.7 % 0.0-1.0 N NUCLEATED RBC % (test code = NRBC%) 0.0 % 0-0 N NEUTROPHIL # (test code = NT#) 2.23 K/mm3 1.8-7.7 N IMMATURE GRANULOCYTE # (test code = IG#) 0.02 x10 3/uL 0-0.03 N LYMPHOCYTE # (test code = LY#) 1.60 K/mm3 1.0-5.0 N MONOCYTE # (test code = MO#) 0.34 K/mm3 0-0.8 N EOSINOPHIL # (test code = EO#) 0.19 K/mm3 0.0-0.5 N BASOPHIL # (test code = BA#) 0.03 K/mm3 0.0-0.2 N NUCLEATED RBC # (test code = NRBC#) 0.00 K/mm3 0.0-0.1 N MANUAL DIFF REQUIRED (test code = MDIFF) NO, ONLY SCAN NEEDED DIFFERENTIAL [id number] 06:34:00* Test Item Value Reference Range Interpretation Comments STAIN ACCEPTABILITY (test code = STN ACCEPTABLE) MORPHOLOGY COMMENT (test code = MOC) PLATELET ESTIMATE (test code = PLTEST) PLATELET MORPHOLOGY (test code = PLTMORPH) CBC W/AUTO [id number] 06:34:00* Test Item Value Reference Range Interpretation Comments WHITE BLOOD CELL (test code = WBC) 4.4 K/mm3 4.5-12.5 L RED BLOOD CELL (test code = RBC) 3.30 mill/mm3 3.7-5.2 L HEMOGLOBIN (test code = HGB) 9.7 gram/dL 11.5-15.5 L HEMATOCRIT (test code = HCT) 30.8 % 36.0-46.0 L MEAN CELL VOLUME (test code = MCV) 93.3 fL 80-98 N MEAN CELL HGB (test code = MCH) 29.4 picogram 27.0-33.0 N MEAN CELL HGB CONCETRATION (test code = MCHC) 31.5 gram/dL 33.0-36. 0 L RED CELL DISTRIBUTION WIDTH (test code = RDW) 11.9 % 11.6-16. 2 N RED CELL DISTRIBUTION WIDTH SD (test code = RDW-SD) 41.0 fL 37 .0-51.0 N PLATELET COUNT (test code = PLT) 39 K/mm3 150-450 LL Results called to [id number] by [email or web address] 08/04/19 0633Critical results verified and read back by Nurse? Y MEAN PLATELET VOLUME (test code = MPV) TEST NOT PERFORMED fL 6.7-11 .0 NEUTROPHIL % (test code = NT%) 50.5 % 39.0-69.0 N IMMATURE GRANULOCYTE % (test code = IG%) 0.5 % 0.0-5.0 N LYMPHOCYTE % (test code = LY%) 36.3 % 25.0-55.0 N MONOCYTE % (test code = MO%) 7.7 % 0.0-10.0 N EOSINOPHIL % (test code = EO%) 4.3 % 0.0-5.0 N BASOPHIL % (test code = BA%) 0.7 % 0.0-1.0 N NUCLEATED RBC % (test code = NRBC%) 0.0 % 0-0 N NEUTROPHIL # (test code = NT#) 2.23 K/mm3 1.8-7.7 N IMMATURE GRANULOCYTE # (test code = IG#) 0.02 x10 3/uL 0-0.03 N LYMPHOCYTE # (test code = LY#) 1.60 K/mm3 1.0-5.0 N MONOCYTE # (test code = MO#) 0.34 K/mm3 0-0.8 N EOSINOPHIL # (test code = EO#) 0.19 K/mm3 0.0-0.5 N BASOPHIL # (test code = BA#) 0.03 K/mm3 0.0-0.2 N NUCLEATED RBC # (test code = NRBC#) 0.00 K/mm3 0.0-0.1 N MANUAL DIFF REQUIRED (test code = MDIFF) NO, ONLY SCAN NEEDED DIFFERENTIAL [id number] 06:34:00* Test Item Value Reference Range Interpretation Comments STAIN ACCEPTABILITY (test code = STN ACCEPTABLE) CABOT RINGS (test code = CAB) MORPHOLOGY COMMENT (test code = MOC) PLATELET ESTIMATE (test code = PLTEST) PLATELET MORPHOLOGY (test code = PLTMORPH) BASIC METABOLIC [id number] 06:33:00* Test Item Value Reference Range Interpretation Comments SODIUM (test code = NA) 141 mmol/L 136-145 N POTASSIUM (test code = K) 4.2 mmol/L 3.5-5.1 N CHLORIDE (test code = CL) 107.0 mmol/L 98-107 N CARBON DIOXIDE (test code = CO2) 29.0 mmol/L 21-32 N ANION GAP (test code = GAP) 9.2 10-20 L GLUCOSE (test code = GLU) 81 mg/dL 74-106 N BLOOD UREA NITROGEN (test code = BUN) 8 mg/dL 7-18 N GLOMERULAR FILTRATION RATE (test code = GFR) > 60 mL/min >=60 Estimated GFR by using Modified MDRD formula.Chronic kidney disease is defined as either kidney damageor GFR <60 mL/min/1.73 m2 for >3 months. CREATININE (test code = CREAT) 0.60 mg/dL 0.55-1.02 N Note change in reference range due to change in reagent. BUN/CREATININE RATIO (test code = BUN/CREA) 13.9 10-20 N CALCIUM (test code = CA) 9.9 mg/dL 8.5-10.1 N BASIC METABOLIC [id number] 06:27:00* Test Item Value Reference Range Interpretation Comments SODIUM (test code = NA) 141 mmol/L 136-145 N POTASSIUM (test code = K) 4.2 mmol/L 3.5-5.1 N CHLORIDE (test code = CL) 107.0 mmol/L 98-107 N CARBON DIOXIDE (test code = CO2) mmol/L 21-32 ANION GAP (test code = GAP) 10-20 GLUCOSE (test code = GLU) mg/dL 74-106 BLOOD UREA NITROGEN (test code = BUN) mg/dL 7-18 GLOMERULAR FILTRATION RATE (test code = GFR) mL/min >=60 CREATININE (test code = CREAT) mg/dL 0.55-1.02 BUN/CREATININE RATIO (test code = BUN/CREA) 10-20 CALCIUM (test code = CA) mg/dL 8.5-10.1 CBC W/AUTO [id number] 10:37:00* Test Item Value Reference Range Interpretation Comments WHITE BLOOD CELL (test code = WBC) 3.3 K/mm3 4.5-12.5 L RED BLOOD CELL (test code = RBC) 3.23 mill/mm3 3.7-5.2 L HEMOGLOBIN (test code = HGB) 9.5 gram/dL 11.5-15.5 L HEMATOCRIT (test code = HCT) 29.4 % 36.0-46.0 L MEAN CELL VOLUME (test code = MCV) 91.0 fL 80-98 N MEAN CELL HGB (test code = MCH) 29.4 picogram 27.0-33.0 N MEAN CELL HGB CONCETRATION (test code = MCHC) 32.3 gram/dL 33.0-36. 0 L RED CELL DISTRIBUTION WIDTH (test code = RDW) 11.9 % 11.6-16. 2 N RED CELL DISTRIBUTION WIDTH SD (test code = RDW-SD) 39.8 fL 37 .0-51.0 N PLATELET COUNT (test code = PLT) 35 K/mm3 150-450 LL Results called to [id number] by AUDREY 08/02/19 0813Critical results verified and read back by Nurse? Y MEAN PLATELET VOLUME (test code = MPV) TEST NOT PERFORMED fL 6.7-11 .0 NEUTROPHIL % (test code = NT%) 57.4 % 39.0-69.0 N IMMATURE GRANULOCYTE % (test code = IG%) 0.0 % 0.0-5.0 N LYMPHOCYTE % (test code = LY%) 28.2 % 25.0-55.0 N MONOCYTE % (test code = MO%) 8.4 % 0.0-10.0 N EOSINOPHIL % (test code = EO%) 5.4 % 0.0-5.0 H BASOPHIL % (test code = BA%) 0.6 % 0.0-1.0 N NUCLEATED RBC % (test code = NRBC%) 0.0 % 0-0 N NEUTROPHIL # (test code = NT#) 1.91 K/mm3 1.8-7.7 N IMMATURE GRANULOCYTE # (test code = IG#) 0.00 x10 3/uL 0-0.03 N LYMPHOCYTE # (test code = LY#) 0.94 K/mm3 1.0-5.0 L MONOCYTE # (test code = MO#) 0.28 K/mm3 0-0.8 N EOSINOPHIL # (test code = EO#) 0.18 K/mm3 0.0-0.5 N BASOPHIL # (test code = BA#) 0.02 K/mm3 0.0-0.2 N NUCLEATED RBC # (test code = NRBC#) 0.00 K/mm3 0.0-0.1 N MANUAL DIFF REQUIRED (test code = MDIFF) NO, ONLY SCAN NEEDED DIFFERENTIAL [id number] 10:37:00* Test Item Value Reference Range Interpretation Comments STAIN ACCEPTABILITY (test code = STN ACCEPTABLE) STAIN ACCEPTABLE POIKILOCYTOSIS (test code = POIK) 1+ ANISOCYTOSIS (test code = ANISO) 1+ PLATELET ESTIMATE (test code = PLTEST) DECREASED PLATELET MORPHOLOGY (test code = PLTMORPH) NORMAL BASIC METABOLIC [id number] 08:17:00* Test Item Value Reference Range Interpretation Comments SODIUM (test code = NA) 142 mmol/L 136-145 N POTASSIUM (test code = K) 4.2 mmol/L 3.5-5.1 N CHLORIDE (test code = CL) 106.0 mmol/L 98-107 N CARBON DIOXIDE (test code = CO2) 30.0 mmol/L 21-32 N ANION GAP (test code = GAP) 10.2 10-20 N GLUCOSE (test code = GLU) 77 mg/dL 74-106 N BLOOD UREA NITROGEN (test code = BUN) 12 mg/dL 7-18 N GLOMERULAR FILTRATION RATE (test code = GFR) > 60 mL/min >=60 Estimated GFR by using Modified MDRD formula.Chronic kidney disease is defined as either kidney damageor GFR <60 mL/min/1.73 m2 for >3 months. CREATININE (test code = CREAT) 0.60 mg/dL 0.55-1.02 N Note change in reference range due to change in reagent. BUN/CREATININE RATIO (test code = BUN/CREA) 20.2 10-20 H CALCIUM (test code = CA) 9.6 mg/dL 8.5-10.1 N [id number] 08:17:00* Test Item Value Reference Range Interpretation Comments PHOSPHORUS (test code = PHOS) 2.4 mg/dL 2.5-4.9 L [id number] 08:17:00* Test Item Value Reference Range Interpretation Comments MAGNESIUM (test code = MAG) 1.5 mg/dL 1.8-2.4 L CALCIUM [id number] 08:17:00* Test Item Value Reference Range Interpretation Comments CALCIUM IONIZED (test code = ERICH) 1.34 mmol/L 1.12-1.32 H CBC W/AUTO [id number] 08:14:00* Test Item Value Reference Range Interpretation Comments WHITE BLOOD CELL (test code = WBC) 3.3 K/mm3 4.5-12.5 L RED BLOOD CELL (test code = RBC) 3.23 mill/mm3 3.7-5.2 L HEMOGLOBIN (test code = HGB) 9.5 gram/dL 11.5-15.5 L HEMATOCRIT (test code = HCT) 29.4 % 36.0-46.0 L MEAN CELL VOLUME (test code = MCV) 91.0 fL 80-98 N MEAN CELL HGB (test code = MCH) 29.4 picogram 27.0-33.0 N MEAN CELL HGB CONCETRATION (test code = MCHC) 32.3 gram/dL 33.0-36. 0 L RED CELL DISTRIBUTION WIDTH (test code = RDW) 11.9 % 11.6-16. 2 N RED CELL DISTRIBUTION WIDTH SD (test code = RDW-SD) 39.8 fL 37 .0-51.0 N PLATELET COUNT (test code = PLT) 35 K/mm3 150-450 LL Results called to [id number] by V.[facility].AUBREE 08/02/19 0813Critical results verified and read back by Nurse? Y MEAN PLATELET VOLUME (test code = MPV) TEST NOT PERFORMED fL 6.7-11 .0 NEUTROPHIL % (test code = NT%) 57.4 % 39.0-69.0 N IMMATURE GRANULOCYTE % (test code = IG%) 0.0 % 0.0-5.0 N LYMPHOCYTE % (test code = LY%) 28.2 % 25.0-55.0 N MONOCYTE % (test code = MO%) 8.4 % 0.0-10.0 N EOSINOPHIL % (test code = EO%) 5.4 % 0.0-5.0 H BASOPHIL % (test code = BA%) 0.6 % 0.0-1.0 N NUCLEATED RBC % (test code = NRBC%) 0.0 % 0-0 N NEUTROPHIL # (test code = NT#) 1.91 K/mm3 1.8-7.7 N IMMATURE GRANULOCYTE # (test code = IG#) 0.00 x10 3/uL 0-0.03 N LYMPHOCYTE # (test code = LY#) 0.94 K/mm3 1.0-5.0 L MONOCYTE # (test code = MO#) 0.28 K/mm3 0-0.8 N EOSINOPHIL # (test code = EO#) 0.18 K/mm3 0.0-0.5 N BASOPHIL # (test code = BA#) 0.02 K/mm3 0.0-0.2 N NUCLEATED RBC # (test code = NRBC#) 0.00 K/mm3 0.0-0.1 N MANUAL DIFF REQUIRED (test code = MDIFF) NO, ONLY SCAN NEEDED DIFFERENTIAL [id number] 08:14:00* Test Item Value Reference Range Interpretation Comments STAIN ACCEPTABILITY (test code = STN ACCEPTABLE) MORPHOLOGY COMMENT (test code = MOC) PLATELET ESTIMATE (test code = PLTEST) PLATELET MORPHOLOGY (test code = PLTMORPH) CBC W/AUTO [id number] 08:13:00* Test Item Value Reference Range Interpretation Comments WHITE BLOOD CELL (test code = WBC) 3.3 K/mm3 4.5-12.5 L RED BLOOD CELL (test code = RBC) 3.23 mill/mm3 3.7-5.2 L HEMOGLOBIN (test code = HGB) 9.5 gram/dL 11.5-15.5 L HEMATOCRIT (test code = HCT) 29.4 % 36.0-46.0 L MEAN CELL VOLUME (test code = MCV) 91.0 fL 80-98 N MEAN CELL HGB (test code = MCH) 29.4 picogram 27.0-33.0 N MEAN CELL HGB CONCETRATION (test code = MCHC) 32.3 gram/dL 33.0-36. 0 L RED CELL DISTRIBUTION WIDTH (test code = RDW) 11.9 % 11.6-16. 2 N RED CELL DISTRIBUTION WIDTH SD (test code = RDW-SD) 39.8 fL 37 .0-51.0 N PLATELET COUNT (test code = PLT) 35 K/mm3 150-450 LL Results called to [id number] by AUDREY 08/02/19 0813Critical results verified and read back by Nurse? Y MEAN PLATELET VOLUME (test code = MPV) TEST NOT PERFORMED fL 6.7-11 .0 NEUTROPHIL % (test code = NT%) 57.4 % 39.0-69.0 N IMMATURE GRANULOCYTE % (test code = IG%) 0.0 % 0.0-5.0 N LYMPHOCYTE % (test code = LY%) 28.2 % 25.0-55.0 N MONOCYTE % (test code = MO%) 8.4 % 0.0-10.0 N EOSINOPHIL % (test code = EO%) 5.4 % 0.0-5.0 H BASOPHIL % (test code = BA%) 0.6 % 0.0-1.0 N NUCLEATED RBC % (test code = NRBC%) 0.0 % 0-0 N NEUTROPHIL # (test code = NT#) 1.91 K/mm3 1.8-7.7 N IMMATURE GRANULOCYTE # (test code = IG#) 0.00 x10 3/uL 0-0.03 N LYMPHOCYTE # (test code = LY#) 0.94 K/mm3 1.0-5.0 L MONOCYTE # (test code = MO#) 0.28 K/mm3 0-0.8 N EOSINOPHIL # (test code = EO#) 0.18 K/mm3 0.0-0.5 N BASOPHIL # (test code = BA#) 0.02 K/mm3 0.0-0.2 N NUCLEATED RBC # (test code = NRBC#) 0.00 K/mm3 0.0-0.1 N MANUAL DIFF REQUIRED (test code = MDIFF) NO, ONLY SCAN NEEDED DIFFERENTIAL [id number] 08:13:00* Test Item Value Reference Range Interpretation Comments STAIN ACCEPTABILITY (test code = STN ACCEPTABLE) CABOT RINGS (test code = CAB) MORPHOLOGY COMMENT (test code = MOC) PLATELET ESTIMATE (test code = PLTEST) PLATELET MORPHOLOGY (test code = PLTMORPH) CBC W/AUTO [id number] 08:13:00* Test Item Value Reference Range Interpretation Comments WHITE BLOOD CELL (test code = WBC) 3.3 K/mm3 4.5-12.5 L RED BLOOD CELL (test code = RBC) 3.23 mill/mm3 3.7-5.2 L HEMOGLOBIN (test code = HGB) 9.5 gram/dL 11.5-15.5 L HEMATOCRIT (test code = HCT) 29.4 % 36.0-46.0 L MEAN CELL VOLUME (test code = MCV) 91.0 fL 80-98 N MEAN CELL HGB (test code = MCH) 29.4 picogram 27.0-33.0 N MEAN CELL HGB CONCETRATION (test code = MCHC) 32.3 gram/dL 33.0-36. 0 L RED CELL DISTRIBUTION WIDTH (test code = RDW) 11.9 % 11.6-16. 2 N RED CELL DISTRIBUTION WIDTH SD (test code = RDW-SD) 39.8 fL 37 .0-51.0 N PLATELET COUNT (test code = PLT) 35 K/mm3 150-450 LL Results called to [id number] by AUDREY 08/02/19 0813Critical results verified and read back by Nurse? Y MEAN PLATELET VOLUME (test code = MPV) TEST NOT PERFORMED fL 6.7-11 .0 NEUTROPHIL % (test code = NT%) 57.4 % 39.0-69.0 N IMMATURE GRANULOCYTE % (test code = IG%) 0.0 % 0.0-5.0 N LYMPHOCYTE % (test code = LY%) 28.2 % 25.0-55.0 N MONOCYTE % (test code = MO%) 8.4 % 0.0-10.0 N EOSINOPHIL % (test code = EO%) 5.4 % 0.0-5.0 H BASOPHIL % (test code = BA%) 0.6 % 0.0-1.0 N NUCLEATED RBC % (test code = NRBC%) 0.0 % 0-0 N NEUTROPHIL # (test code = NT#) 1.91 K/mm3 1.8-7.7 N IMMATURE GRANULOCYTE # (test code = IG#) 0.00 x10 3/uL 0-0.03 N LYMPHOCYTE # (test code = LY#) 0.94 K/mm3 1.0-5.0 L MONOCYTE # (test code = MO#) 0.28 K/mm3 0-0.8 N EOSINOPHIL # (test code = EO#) 0.18 K/mm3 0.0-0.5 N BASOPHIL # (test code = BA#) 0.02 K/mm3 0.0-0.2 N NUCLEATED RBC # (test code = NRBC#) 0.00 K/mm3 0.0-0.1 N MANUAL DIFF REQUIRED (test code = MDIFF) NO, ONLY SCAN NEEDED DIFFERENTIAL [id number] 08:13:00* Test Item Value Reference Range Interpretation Comments STAIN ACCEPTABILITY (test code = STN ACCEPTABLE) MORPHOLOGY COMMENT (test code = MOC) PLATELET ESTIMATE (test code = PLTEST) PLATELET MORPHOLOGY (test code = PLTMORPH) CBC W/AUTO [id number] 08:13:00* Test Item Value Reference Range Interpretation Comments WHITE BLOOD CELL (test code = WBC) 3.3 K/mm3 4.5-12.5 L RED BLOOD CELL (test code = RBC) 3.23 mill/mm3 3.7-5.2 L HEMOGLOBIN (test code = HGB) 9.5 gram/dL 11.5-15.5 L HEMATOCRIT (test code = HCT) 29.4 % 36.0-46.0 L MEAN CELL VOLUME (test code = MCV) 91.0 fL 80-98 N MEAN CELL HGB (test code = MCH) 29.4 picogram 27.0-33.0 N MEAN CELL HGB CONCETRATION (test code = MCHC) 32.3 gram/dL 33.0-36. 0 L RED CELL DISTRIBUTION WIDTH (test code = RDW) 11.9 % 11.6-16. 2 N RED CELL DISTRIBUTION WIDTH SD (test code = RDW-SD) 39.8 fL 37 .0-51.0 N PLATELET COUNT (test code = PLT) 35 K/mm3 150-450 LL Results called to [id number] by DELMA.AUBREE 08/02/19 0813Critical results verified and read back by Nurse? Y MEAN PLATELET VOLUME (test code = MPV) TEST NOT PERFORMED fL 6.7-11 .0 NEUTROPHIL % (test code = NT%) 57.4 % 39.0-69.0 N IMMATURE GRANULOCYTE % (test code = IG%) 0.0 % 0.0-5.0 N LYMPHOCYTE % (test code = LY%) 28.2 % 25.0-55.0 N MONOCYTE % (test code = MO%) 8.4 % 0.0-10.0 N EOSINOPHIL % (test code = EO%) 5.4 % 0.0-5.0 H BASOPHIL % (test code = BA%) 0.6 % 0.0-1.0 N NUCLEATED RBC % (test code = NRBC%) 0.0 % 0-0 N NEUTROPHIL # (test code = NT#) 1.91 K/mm3 1.8-7.7 N IMMATURE GRANULOCYTE # (test code = IG#) 0.00 x10 3/uL 0-0.03 N LYMPHOCYTE # (test code = LY#) 0.94 K/mm3 1.0-5.0 L MONOCYTE # (test code = MO#) 0.28 K/mm3 0-0.8 N EOSINOPHIL # (test code = EO#) 0.18 K/mm3 0.0-0.5 N BASOPHIL # (test code = BA#) 0.02 K/mm3 0.0-0.2 N NUCLEATED RBC # (test code = NRBC#) 0.00 K/mm3 0.0-0.1 N MANUAL DIFF REQUIRED (test code = MDIFF) NO, ONLY SCAN NEEDED DIFFERENTIAL [id number] 08:13:00* Test Item Value Reference Range Interpretation Comments STAIN ACCEPTABILITY (test code = STN ACCEPTABLE) CABOT RINGS (test code = CAB) MORPHOLOGY COMMENT (test code = MOC) PLATELET ESTIMATE (test code = PLTEST) PLATELET MORPHOLOGY (test code = PLTMORPH) BASIC METABOLIC [id number] 08:11:00* Test Item Value Reference Range Interpretation Comments SODIUM (test code = NA) 142 mmol/L 136-145 N POTASSIUM (test code = K) 4.2 mmol/L 3.5-5.1 N CHLORIDE (test code = CL) 106.0 mmol/L 98-107 N CARBON DIOXIDE (test code = CO2) mmol/L 21-32 ANION GAP (test code = GAP) 10-20 GLUCOSE (test code = GLU) mg/dL 74-106 BLOOD UREA NITROGEN (test code = BUN) mg/dL 7-18 GLOMERULAR FILTRATION RATE (test code = GFR) mL/min >=60 CREATININE (test code = CREAT) mg/dL 0.55-1.02 BUN/CREATININE RATIO (test code = BUN/CREA) 10-20 CALCIUM (test code = CA) mg/dL 8.5-10.1 [id number] 08:11:00* Test Item Value Reference Range Interpretation Comments PHOSPHORUS (test code = PHOS) mg/dL 2.5-4.9 [id number] 08:11:00* Test Item Value Reference Range Interpretation Comments MAGNESIUM (test code = MAG) mg/dL 1.8-2.4 CALCIUM [id number] 08:11:00* Test Item Value Reference Range Interpretation Comments CALCIUM IONIZED (test code = ERICH) 1.34 mmol/L 1.12-1.32 H BASIC METABOLIC [id number] 08:09:00* Test Item Value Reference Range Interpretation Comments SODIUM (test code = NA) 142 mmol/L 136-145 N POTASSIUM (test code = K) 4.2 mmol/L 3.5-5.1 N CHLORIDE (test code = CL) 106.0 mmol/L 98-107 N CARBON DIOXIDE (test code = CO2) mmol/L 21-32 ANION GAP (test code = GAP) 10-20 GLUCOSE (test code = GLU) mg/dL 74-106 BLOOD UREA NITROGEN (test code = BUN) mg/dL 7-18 GLOMERULAR FILTRATION RATE (test code = GFR) mL/min >=60 CREATININE (test code = CREAT) mg/dL 0.55-1.02 BUN/CREATININE RATIO (test code = BUN/CREA) 10-20 CALCIUM (test code = CA) mg/dL 8.5-10.1 [id number] 08:09:00* Test Item Value Reference Range Interpretation Comments PHOSPHORUS (test code = PHOS) mg/dL 2.5-4.9 [id number] 08:09:00* Test Item Value Reference Range Interpretation Comments MAGNESIUM (test code = MAG) mg/dL 1.8-2.4 CALCIUM [id number] 08:09:00* Test Item Value Reference Range Interpretation Comments CALCIUM IONIZED (test code = ERICH) mmol/L 1.12-1.32 - XR CHEST 1 [id number] 08:02:00 FAX: Justin Doran [place]: B St: ADM FAX: Ilan Holt [facility] 1950 [facility] 69[facility]F [address] Unit #: [id number] Loc: V.2080 [place] [address] Phys: Justin Doran Acct: [id number] Dis Date: Status: ADM IN PHONE #: [phone] Exam Date: 08/02/2019 0759 FAX #: [phone] Reason: Respiratory Failure EXAMS: CPT CODE: [id number] XR CHEST 1 V 69598 CLINICAL HISTORY: Respiratory Failure TECHNIQUE: AP chest x-ray COMPARISON: Previous day. IMPRESSION: Resolved right basilar subsegmental atelectasis. No airspace consolidation or pleural effusion. Normal heart size. Tracheostomy tube. LOCATION: LP at 0802 Reported and signed by: Lenka Farrar D.O. CC: Justin Doran; Ilan Stein Technologist: RT JUVENTINO(R) Trnscbrigid Date/Time/By: 9 (0802) : By: [email or web address] Orig Print D/T: S: 08/02/2019 (0815) PAGE 1 Signed Report - XR CHEST 1 [id number] 08:02:00 FAX: Justin Doran [place]: B St: DIS FAX: Ilan Holt MD Name: MOJGAN CUMMINGS [facility] : 1950 Age/S: 69/F [address] Unit #: [id number] Loc: V.2080 [place] [address] Phys: Justin Doran Acct: [id number] Dis Date: [id number] Status: DIS IN PHONE #: [phone] Exam Date: 08/02/2019 0755 FAX #: [phone] Reason: Respiratory Failure EXAMS: CPT CODE: [id number] XR CHEST 1 V 33304 CLINICAL HISTORY: Respiratory Failure TECHNIQUE: AP chest x-ray COMPARISON: Previous day. IMPRESSION: Resolved right basilar subsegmental atelectasis. No airspace consolidation or pleural effusion. Normal heart size. Tracheostomy tube. LOCATION: LP at 0802 Reported and signed by: Lenka Farrar D.O. CC: Justin Doran; Ilan Stein Technologist: RT JUVENTINO(Ivan) Trnscrd Date/Time/By: 9 (801) : By: [email or web address] Orig Print D/T: S: 08/02/2019 (15) PAGE 1 Signed Report PROTHROMBIN [id number] 15:09:00* Test Item Value Reference Range Interpretation Comments PROTHROMBIN TIME PATIENT (test code = PTP) 12.1 seconds 9.0-14.0 N INTERNATIONAL NORMAL RATIO (test code = INR) 1.0 0.8-1.2 N The therapeutic range for oral anticoagulant therapy formost indications is an international normalized ratio (INR)of between 2.0 and 3.0. The recommended therapeutic INRrange for various clinical situations is listed below: Clinical Situation INR range Pulmonary e mbolism treatment (2.0-3.0)Venous thrombosis treatmentVenous thrombosis prophylaxis (high risk surgery)Prevention of systemic embolism from: Acute myocardial infarction Valvular heart disease Atrial fibrillation Mechanical prosthetic heart valves (2.5-3.5) THROMBOPLASTIN TIME [id number] 15:09:00* Test Item Value Reference Range Interpretation Comments THROMBOPLASTIN TIME PARTIAL (test code = PTT) 32.1 seconds 25.0-36. 5 N [id number] 15:09:00* Test Item Value Reference Range Interpretation Comments FIBRINOGEN (test code = FIB) 316 mg/dL 200-400 N FIBRIN SPLIT [id number] 15:09:00* Test Item Value Reference Range Interpretation Comments FIBRIN SPLIT PRODUCT (test code = FSP) <5 ug/mL <5 Performed At: [facility] [address] [id number] Santoyo MD Ph:[phone] [id number] 15:09:00* Test Item Value Reference Range Interpretation Comments D-DIMER (test code = DDIMER) 583.00 ng/mLFEU 0-500 HH Results called to [id number] by IVANA 07/30/19 1102Critical results verified and read back by Nurse? YClinical Cut-off value for D-Dimer is 500 ng/mL FEU. Comment: The [employer] D- Dimer assay is intended for use asan aid in the diagnosis of venous thromboembolism (VTE)[deep vein thrombosis (DVT) or pulmonary embolism (PE)].The measurement of D-Dimer should not be used as an aid inthe diagnosis of VTE, in patient with: -Therapeutic dose anticoagulant therapy for >24 hours - Fibrinolytic therapy within previous 7 days -Trauma or surgery within previous 4 weeks -Disseminated malignancies -Aortic aneurysm -Sepsis, severe infections, pneumonia, severe skin infections -Liver cirrhosis - ANTITHROMBIN III (ATIII)2019-08-01 15:09:00* Test Item Value Reference Range Interpretation Comments ANTITHROMBIN III (ATIII) (test code = AT3) 90 % 75-135 Direct Xa inhibitor anticoagulants such as rivaroxaban,apixaban and edoxaban will lead to spuriously elevatedantithrombin activity levels possibly masking a deficiency.Performed At: [facility] [id number] Santoyo MD Ph:[phone] PROTHROMBIN [id number] 09:10:00* Test Item Value Reference Range Interpretation Comments PROTHROMBIN TIME PATIENT (test code = PTP) 12.1 seconds 9.0-14.0 N INTERNATIONAL NORMAL RATIO (test code = INR) 1.0 0.8-1.2 N The therapeutic range for oral anticoagulant therapy formost indications is an international normalized ratio (INR)of between 2.0 and 3.0. The recommended therapeutic INRrange for various clinical situations is listed below: Clinical Situation INR range Pulmonary e mbolism treatment (2.0-3.0)Venous thrombosis treatmentVenous thrombosis prophylaxis (high risk surgery)Prevention of systemic embolism from: Acute myocardial infarction Valvular heart disease Atrial fibrillation Mechanical prosthetic heart valves (2.5-3.5) THROMBOPLASTIN TIME [id number] 09:10:00* Test Item Value Reference Range Interpretation Comments THROMBOPLASTIN TIME PARTIAL (test code = PTT) 32.1 seconds 25.0-36. 5 N [id number] 09:10:00* Test Item Value Reference Range Interpretation Comments FIBRINOGEN (test code = FIB) 316 mg/dL 200-400 N FIBRIN SPLIT [id number] 09:10:00* Test Item Value Reference Range Interpretation Comments FIBRIN SPLIT PRODUCT (test code = FSP) mcg/mL <5 [id number] 09:10:00* Test Item Value Reference Range Interpretation Comments D-DIMER (test code = DDIMER) 583.00 ng/mLFEU 0-500 HH Results called to [id number] by IVANA 07/30/19 1102Critical results verified and read back by Nurse? YClinical Cut-off value for D-Dimer is 500 ng/mL FEU. Comment: The [employer] D- Dimer assay is intended for use asan aid in the diagnosis of venous thromboembolism (VTE)[deep vein thrombosis (DVT) or pulmonary embolism (PE)].The measurement of D-Dimer should not be used as an aid inthe diagnosis of VTE, in patient with: -Therapeutic dose anticoagulant therapy for >24 hours - Fibrinolytic therapy within previous 7 days -Trauma or surgery within previous 4 weeks -Disseminated malignancies -Aortic aneurysm -Sepsis, severe infections, pneumonia, severe skin infections -Liver cirrhosis - ANTITHROMBIN III (ATIII)2019-08-01 09:10:00* Test Item Value Reference Range Interpretation Comments ANTITHROMBIN III (ATIII) (test code = AT3) 90 % 75-135 Direct Xa inhibitor anticoagulants such as rivaroxaban,apixaban and edoxaban will lead to spuriously elevatedantithrombin activity levels possibly masking a deficiency.Performed At: [facility] [id number] Sanjai MD Ph:[phone] - XR CHEST 1 [id number] 06:36:00 FAX: Justin Doran [place]: St: ADM FAX: Ilan Holt MD Name: MARCELA CUMMINGS [facility] : 1950 Age/S: 69/F [address] [facility] Unit #: [id number] Loc: V.2081 [place] [address] Phys: Justin Doran Acct: [id number] Dis Date: Status: ADM IN PHONE #: [phone] Exam Date: 08/01/2019 0535 FAX #: [phone] Reason: Respiratory Failure EXAMS: CPT CODE: [id number] XR CHEST 1 V 25608 CLINICAL HISTORY: Respiratory Failure TECHNIQUE: AP chest x-ray COMPARISON: Previous day. IMPRESSION: No significant interval change. Mild right basilar subsegmental atelectasis. No pleural effusion. Normal heart size. Tracheostomy tube. LOCATION: at 0636 Reported and signed by: Lenka Farrar D.O. CC: Justin Mullins Ronald Technologist: OCTAVIO VASQUEZ JR; Abgiail Darling Trnscrd Date/Time/By: 08/01/2019 (0636 ) : By: [email or web address] Orig Print D/T: S: 08/01/2019 (5756) PAGE 1 Signed Report - XR CHEST 1 [id number] 06:36:00 FAX: Justin Doran [place]: St: DIS FAX: Ilan Holt MD Name: MOJGAN CUMMINGS [facility] : 1950 Age/S: 69/F [address] [facility] Unit #: [id number] Loc: V.2080 [place] [address] Phys: Justin Doran Acct: [id number] Dis Date: [id number] Status: DIS IN PHONE #: [phone] Exam Date: 08/01/2019534 FAX #: [phone] Reason: Respiratory Failure EXAMS: CPT CODE: [id number] XR CHEST 1 V 45363 CLINICAL HISTORY: Respiratory Failure TECHNIQUE: AP chest x-ray COMPARISON: Previous day. IMPRESSION: No significant interval change. Mild right basilar subsegmental atelectasis. No pleural effusion. Normal heart size. Tracheostomy tube. LOCATION: at 0636 Reported and signed by: Lenka Farrar D.O. CC: Justin Mullins; Ilan Stein Technologist: OCTAVIO Darling Trnscrd Date/Time/By: 08/01/2019 (0636 ) : By: [email or web address] Orig Print D/T: S: 08/01/2019 (6601) PAGE 1 Signed Report CBC W/AUTO [id number] 05:04:00* Test Item Value Reference Range Interpretation Comments WHITE BLOOD CELL (test code = WBC) 3.8 K/mm3 4.5-12.5 L RED BLOOD CELL (test code = RBC) 3.14 mill/mm3 3.7-5.2 L HEMOGLOBIN (test code = HGB) 9.2 gram/dL 11.5-15.5 L HEMATOCRIT (test code = HCT) 29.5 % 36.0-46.0 L MEAN CELL VOLUME (test code = MCV) 93.9 fL 80-98 N MEAN CELL HGB (test code = MCH) 29.3 picogram 27.0-33.0 N MEAN CELL HGB CONCETRATION (test code = MCHC) 31.2 gram/dL 33.0-36. 0 L RED CELL DISTRIBUTION WIDTH (test code = RDW) 11.9 % 11.6-16. 2 N RED CELL DISTRIBUTION WIDTH SD (test code = RDW-SD) 41.0 fL 37 .0-51.0 N PLATELET COUNT (test code = PLT) 27 K/mm3 150-450 LL Results called to [id number] by [email or web address] 08/01/19 0450Critical results verified and read back by Nurse? Y MEAN PLATELET VOLUME (test code = MPV) 15.0 fL 6.7-11.0 H NEUTROPHIL % (test code = NT%) 54.7 % 39.0-69.0 N IMMATURE GRANULOCYTE % (test code = IG%) 0.3 % 0.0-5.0 N LYMPHOCYTE % (test code = LY%) 29.6 % 25.0-55.0 N MONOCYTE % (test code = MO%) 8.5 % 0.0-10.0 N EOSINOPHIL % (test code = EO%) 6.4 % 0.0-5.0 H BASOPHIL % (test code = BA%) 0.5 % 0.0-1.0 N NUCLEATED RBC % (test code = NRBC%) 0.0 % 0-0 N NEUTROPHIL # (test code = NT#) 2.05 K/mm3 1.8-7.7 N IMMATURE GRANULOCYTE # (test code = IG#) 0.01 x10 3/uL 0-0.03 N LYMPHOCYTE # (test code = LY#) 1.11 K/mm3 1.0-5.0 N MONOCYTE # (test code = MO#) 0.32 K/mm3 0-0.8 N EOSINOPHIL # (test code = EO#) 0.24 K/mm3 0.0-0.5 N BASOPHIL # (test code = BA#) 0.02 K/mm3 0.0-0.2 N NUCLEATED RBC # (test code = NRBC#) 0.00 K/mm3 0.0-0.1 N MANUAL DIFF REQUIRED (test code = MDIFF) NO, ONLY SCAN NEEDED DIFFERENTIAL [id number] 05:04:00* Test Item Value Reference Range Interpretation Comments STAIN ACCEPTABILITY (test code = STN ACCEPTABLE) STAIN ACCEPTABLE PLATELET ESTIMATE (test code = PLTEST) DECREASED PLATELET MORPHOLOGY (test code = PLTMORPH) NORMAL BASIC METABOLIC [id number] 05:03:00* Test Item Value Reference Range Interpretation Comments SODIUM (test code = NA) 143 mmol/L 136-145 N POTASSIUM (test code = K) 3.7 mmol/L 3.5-5.1 N CHLORIDE (test code = CL) 108.0 mmol/L 98-107 H CARBON DIOXIDE (test code = CO2) 30.0 mmol/L 21-32 N ANION GAP (test code = GAP) 8.7 10-20 L GLUCOSE (test code = GLU) 65 mg/dL 74-106 L BLOOD UREA NITROGEN (test code = BUN) 10 mg/dL 7-18 N GLOMERULAR FILTRATION RATE (test code = GFR) > 60 mL/min >=60 Estimated GFR by using Modified MDRD formula.Chronic kidney disease is defined as either kidney damageor GFR <60 mL/min/1.73 m2 for >3 months. CREATININE (test code = CREAT) 0.50 mg/dL 0.55-1.02 L Note change in reference range due to change in reagent. BUN/CREATININE RATIO (test code = BUN/CREA) 18.7 10-20 N CALCIUM (test code = CA) 9.2 mg/dL 8.5-10.1 N [id number] 05:03:00* Test Item Value Reference Range Interpretation Comments PHOSPHORUS (test code = PHOS) 2.6 mg/dL 2.5-4.9 N [id number] 05:03:00* Test Item Value Reference Range Interpretation Comments MAGNESIUM (test code = MAG) 2.2 mg/dL 1.8-2.4 N CALCIUM [id number] 05:03:00* Test Item Value Reference Range Interpretation Comments CALCIUM IONIZED (test code = ERICH) 1.36 mmol/L 1.12-1.32 H BASIC METABOLIC [id number] 04:58:00* Test Item Value Reference Range Interpretation Comments SODIUM (test code = NA) 143 mmol/L 136-145 N POTASSIUM (test code = K) 3.7 mmol/L 3.5-5.1 N CHLORIDE (test code = CL) 108.0 mmol/L 98-107 H CARBON DIOXIDE (test code = CO2) 30.0 mmol/L 21-32 N ANION GAP (test code = GAP) 8.7 10-20 L GLUCOSE (test code = GLU) 65 mg/dL 74-106 L BLOOD UREA NITROGEN (test code = BUN) 10 mg/dL 7-18 N GLOMERULAR FILTRATION RATE (test code = GFR) > 60 mL/min >=60 Estimated GFR by using Modified MDRD formula.Chronic kidney disease is defined as either kidney damageor GFR <60 mL/min/1.73 m2 for >3 months. CREATININE (test code = CREAT) 0.50 mg/dL 0.55-1.02 L Note change in reference range due to change in reagent. BUN/CREATININE RATIO (test code = BUN/CREA) 18.7 10-20 N CALCIUM (test code = CA) 9.2 mg/dL 8.5-10.1 N [id number] 04:58:00* Test Item Value Reference Range Interpretation Comments PHOSPHORUS (test code = PHOS) 2.6 mg/dL 2.5-4.9 N [id number] 04:58:00* Test Item Value Reference Range Interpretation Comments MAGNESIUM (test code = MAG) 2.2 mg/dL 1.8-2.4 N CALCIUM [id number] 04:58:00* Test Item Value Reference Range Interpretation Comments CALCIUM IONIZED (test code = ERICH) mmol/L 1.12-1.32 BASIC METABOLIC [id number] 04:53:00* Test Item Value Reference Range Interpretation Comments SODIUM (test code = NA) 143 mmol/L 136-145 N POTASSIUM (test code = K) 3.7 mmol/L 3.5-5.1 N CHLORIDE (test code = CL) 108.0 mmol/L 98-107 H CARBON DIOXIDE (test code = CO2) mmol/L 21-32 ANION GAP (test code = GAP) 10-20 GLUCOSE (test code = GLU) mg/dL 74-106 BLOOD UREA NITROGEN (test code = BUN) mg/dL 7-18 GLOMERULAR FILTRATION RATE (test code = GFR) mL/min >=60 CREATININE (test code = CREAT) mg/dL 0.55-1.02 BUN/CREATININE RATIO (test code = BUN/CREA) 10-20 CALCIUM (test code = CA) mg/dL 8.5-10.1 [id number] 04:53:00* Test Item Value Reference Range Interpretation Comments PHOSPHORUS (test code = PHOS) mg/dL 2.5-4.9 [id number] 04:53:00* Test Item Value Reference Range Interpretation Comments MAGNESIUM (test code = MAG) mg/dL 1.8-2.4 CALCIUM [id number] 04:53:00* Test Item Value Reference Range Interpretation Comments CALCIUM IONIZED (test code = ERICH) mmol/L 1.12-1.32 CBC W/AUTO [id number] 04:50:00* Test Item Value Reference Range Interpretation Comments WHITE BLOOD CELL (test code = WBC) 3.8 K/mm3 4.5-12.5 L RED BLOOD CELL (test code = RBC) 3.14 mill/mm3 3.7-5.2 L HEMOGLOBIN (test code = HGB) 9.2 gram/dL 11.5-15.5 L HEMATOCRIT (test code = HCT) 29.5 % 36.0-46.0 L MEAN CELL VOLUME (test code = MCV) 93.9 fL 80-98 N MEAN CELL HGB (test code = MCH) 29.3 picogram 27.0-33.0 N MEAN CELL HGB CONCETRATION (test code = MCHC) 31.2 gram/dL 33.0-36. 0 L RED CELL DISTRIBUTION WIDTH (test code = RDW) 11.9 % 11.6-16. 2 N RED CELL DISTRIBUTION WIDTH SD (test code = RDW-SD) 41.0 fL 37 .0-51.0 N PLATELET COUNT (test code = PLT) 27 K/mm3 150-450 LL Results called to [id number] by [email or web address] 08/01/19 0450Critical results verified and read back by Nurse? Y MEAN PLATELET VOLUME (test code = MPV) 15.0 fL 6.7-11.0 H NEUTROPHIL % (test code = NT%) 54.7 % 39.0-69.0 N IMMATURE GRANULOCYTE % (test code = IG%) 0.3 % 0.0-5.0 N LYMPHOCYTE % (test code = LY%) 29.6 % 25.0-55.0 N MONOCYTE % (test code = MO%) 8.5 % 0.0-10.0 N EOSINOPHIL % (test code = EO%) 6.4 % 0.0-5.0 H BASOPHIL % (test code = BA%) 0.5 % 0.0-1.0 N NUCLEATED RBC % (test code = NRBC%) 0.0 % 0-0 N NEUTROPHIL # (test code = NT#) 2.05 K/mm3 1.8-7.7 N IMMATURE GRANULOCYTE # (test code = IG#) 0.01 x10 3/uL 0-0.03 N LYMPHOCYTE # (test code = LY#) 1.11 K/mm3 1.0-5.0 N MONOCYTE # (test code = MO#) 0.32 K/mm3 0-0.8 N EOSINOPHIL # (test code = EO#) 0.24 K/mm3 0.0-0.5 N BASOPHIL # (test code = BA#) 0.02 K/mm3 0.0-0.2 N NUCLEATED RBC # (test code = NRBC#) 0.00 K/mm3 0.0-0.1 N MANUAL DIFF REQUIRED (test code = MDIFF) NO, ONLY SCAN NEEDED DIFFERENTIAL [id number] 04:50:00* Test Item Value Reference Range Interpretation Comments STAIN ACCEPTABILITY (test code = STN ACCEPTABLE) CABOT RINGS (test code = CAB) MORPHOLOGY COMMENT (test code = MOC) PLATELET ESTIMATE (test code = PLTEST) PLATELET MORPHOLOGY (test code = PLTMORPH) CBC W/AUTO [id number] 04:50:00* Test Item Value Reference Range Interpretation Comments WHITE BLOOD CELL (test code = WBC) 3.8 K/mm3 4.5-12.5 L RED BLOOD CELL (test code = RBC) 3.14 mill/mm3 3.7-5.2 L HEMOGLOBIN (test code = HGB) 9.2 gram/dL 11.5-15.5 L HEMATOCRIT (test code = HCT) 29.5 % 36.0-46.0 L MEAN CELL VOLUME (test code = MCV) 93.9 fL 80-98 N MEAN CELL HGB (test code = MCH) 29.3 picogram 27.0-33.0 N MEAN CELL HGB CONCETRATION (test code = MCHC) 31.2 gram/dL 33.0-36. 0 L RED CELL DISTRIBUTION WIDTH (test code = RDW) 11.9 % 11.6-16. 2 N RED CELL DISTRIBUTION WIDTH SD (test code = RDW-SD) 41.0 fL 37 .0-51.0 N PLATELET COUNT (test code = PLT) 27 K/mm3 150-450 LL Results called to [id number] by [email or web address] 08/01/19 0450Critical results verified and read back by Nurse? Y MEAN PLATELET VOLUME (test code = MPV) 15.0 fL 6.7-11.0 H NEUTROPHIL % (test code = NT%) 54.7 % 39.0-69.0 N IMMATURE GRANULOCYTE % (test code = IG%) 0.3 % 0.0-5.0 N LYMPHOCYTE % (test code = LY%) 29.6 % 25.0-55.0 N MONOCYTE % (test code = MO%) 8.5 % 0.0-10.0 N EOSINOPHIL % (test code = EO%) 6.4 % 0.0-5.0 H BASOPHIL % (test code = BA%) 0.5 % 0.0-1.0 N NUCLEATED RBC % (test code = NRBC%) 0.0 % 0-0 N NEUTROPHIL # (test code = NT#) 2.05 K/mm3 1.8-7.7 N IMMATURE GRANULOCYTE # (test code = IG#) 0.01 x10 3/uL 0-0.03 N LYMPHOCYTE # (test code = LY#) 1.11 K/mm3 1.0-5.0 N MONOCYTE # (test code = MO#) 0.32 K/mm3 0-0.8 N EOSINOPHIL # (test code = EO#) 0.24 K/mm3 0.0-0.5 N BASOPHIL # (test code = BA#) 0.02 K/mm3 0.0-0.2 N NUCLEATED RBC # (test code = NRBC#) 0.00 K/mm3 0.0-0.1 N MANUAL DIFF REQUIRED (test code = MDIFF) NO, ONLY SCAN NEEDED DIFFERENTIAL [id number] 04:50:00* Test Item Value Reference Range Interpretation Comments STAIN ACCEPTABILITY (test code = STN ACCEPTABLE) CABOT RINGS (test code = CAB) MORPHOLOGY COMMENT (test code = MOC) PLATELET ESTIMATE (test code = PLTEST) PLATELET MORPHOLOGY (test code = PLTMORPH) CBC W/AUTO [id number] 04:50:00* Test Item Value Reference Range Interpretation Comments WHITE BLOOD CELL (test code = WBC) 3.8 K/mm3 4.5-12.5 L RED BLOOD CELL (test code = RBC) 3.14 mill/mm3 3.7-5.2 L HEMOGLOBIN (test code = HGB) 9.2 gram/dL 11.5-15.5 L HEMATOCRIT (test code = HCT) 29.5 % 36.0-46.0 L MEAN CELL VOLUME (test code = MCV) 93.9 fL 80-98 N MEAN CELL HGB (test code = MCH) 29.3 picogram 27.0-33.0 N MEAN CELL HGB CONCETRATION (test code = MCHC) 31.2 gram/dL 33.0-36. 0 L RED CELL DISTRIBUTION WIDTH (test code = RDW) 11.9 % 11.6-16. 2 N RED CELL DISTRIBUTION WIDTH SD (test code = RDW-SD) 41.0 fL 37 .0-51.0 N PLATELET COUNT (test code = PLT) 27 K/mm3 150-450 LL Results called to [id number] by [email or web address] 08/01/19 0450Critical results verified and read back by Nurse? Y MEAN PLATELET VOLUME (test code = MPV) 15.0 fL 6.7-11.0 H NEUTROPHIL % (test code = NT%) 54.7 % 39.0-69.0 N IMMATURE GRANULOCYTE % (test code = IG%) 0.3 % 0.0-5.0 N LYMPHOCYTE % (test code = LY%) 29.6 % 25.0-55.0 N MONOCYTE % (test code = MO%) 8.5 % 0.0-10.0 N EOSINOPHIL % (test code = EO%) 6.4 % 0.0-5.0 H BASOPHIL % (test code = BA%) 0.5 % 0.0-1.0 N NUCLEATED RBC % (test code = NRBC%) 0.0 % 0-0 N NEUTROPHIL # (test code = NT#) 2.05 K/mm3 1.8-7.7 N IMMATURE GRANULOCYTE # (test code = IG#) 0.01 x10 3/uL 0-0.03 N LYMPHOCYTE # (test code = LY#) 1.11 K/mm3 1.0-5.0 N MONOCYTE # (test code = MO#) 0.32 K/mm3 0-0.8 N EOSINOPHIL # (test code = EO#) 0.24 K/mm3 0.0-0.5 N BASOPHIL # (test code = BA#) 0.02 K/mm3 0.0-0.2 N NUCLEATED RBC # (test code = NRBC#) 0.00 K/mm3 0.0-0.1 N MANUAL DIFF REQUIRED (test code = MDIFF) NO, ONLY SCAN NEEDED DIFFERENTIAL [id number] 04:50:00* Test Item Value Reference Range Interpretation Comments STAIN ACCEPTABILITY (test code = STN ACCEPTABLE) MORPHOLOGY COMMENT (test code = MOC) PLATELET ESTIMATE (test code = PLTEST) PLATELET MORPHOLOGY (test code = PLTMORPH) CBC W/AUTO [id number] 04:50:00* Test Item Value Reference Range Interpretation Comments WHITE BLOOD CELL (test code = WBC) 3.8 K/mm3 4.5-12.5 L RED BLOOD CELL (test code = RBC) 3.14 mill/mm3 3.7-5.2 L HEMOGLOBIN (test code = HGB) 9.2 gram/dL 11.5-15.5 L HEMATOCRIT (test code = HCT) 29.5 % 36.0-46.0 L MEAN CELL VOLUME (test code = MCV) 93.9 fL 80-98 N MEAN CELL HGB (test code = MCH) 29.3 picogram 27.0-33.0 N MEAN CELL HGB CONCETRATION (test code = MCHC) 31.2 gram/dL 33.0-36. 0 L RED CELL DISTRIBUTION WIDTH (test code = RDW) 11.9 % 11.6-16. 2 N RED CELL DISTRIBUTION WIDTH SD (test code = RDW-SD) 41.0 fL 37 .0-51.0 N PLATELET COUNT (test code = PLT) 27 K/mm3 150-450 LL Results called to [id number] by [email or web address] 08/01/19 0450Critical results verified and read back by Nurse? Y MEAN PLATELET VOLUME (test code = MPV) 15.0 fL 6.7-11.0 H NEUTROPHIL % (test code = NT%) 54.7 % 39.0-69.0 N IMMATURE GRANULOCYTE % (test code = IG%) 0.3 % 0.0-5.0 N LYMPHOCYTE % (test code = LY%) 29.6 % 25.0-55.0 N MONOCYTE % (test code = MO%) 8.5 % 0.0-10.0 N EOSINOPHIL % (test code = EO%) 6.4 % 0.0-5.0 H BASOPHIL % (test code = BA%) 0.5 % 0.0-1.0 N NUCLEATED RBC % (test code = NRBC%) 0.0 % 0-0 N NEUTROPHIL # (test code = NT#) 2.05 K/mm3 1.8-7.7 N IMMATURE GRANULOCYTE # (test code = IG#) 0.01 x10 3/uL 0-0.03 N LYMPHOCYTE # (test code = LY#) 1.11 K/mm3 1.0-5.0 N MONOCYTE # (test code = MO#) 0.32 K/mm3 0-0.8 N EOSINOPHIL # (test code = EO#) 0.24 K/mm3 0.0-0.5 N BASOPHIL # (test code = BA#) 0.02 K/mm3 0.0-0.2 N NUCLEATED RBC # (test code = NRBC#) 0.00 K/mm3 0.0-0.1 N MANUAL DIFF REQUIRED (test code = MDIFF) NO, ONLY SCAN NEEDED DIFFERENTIAL [id number] 04:50:00* Test Item Value Reference Range Interpretation Comments STAIN ACCEPTABILITY (test code = STN ACCEPTABLE) CABOT RINGS (test code = CAB) MORPHOLOGY COMMENT (test code = MOC) PLATELET ESTIMATE (test code = PLTEST) PLATELET MORPHOLOGY (test code = PLTMORPH) BASIC METABOLIC [id number] 07:59:00* Test Item Value Reference Range Interpretation Comments SODIUM (test code = NA) 143 mmol/L 136-145 N POTASSIUM (test code = K) 3.8 mmol/L 3.5-5.1 N CHLORIDE (test code = CL) 109.0 mmol/L 98-107 H CARBON DIOXIDE (test code = CO2) 29.0 mmol/L 21-32 N Previously reported result: 29.0 mmol/LEdited by: JOSEY on 07/31/19:0659 ANION GAP (test code = GAP) 8.8 10-20 L GLUCOSE (test code = GLU) 78 mg/dL 74-106 N BLOOD UREA NITROGEN (test code = BUN) 8 mg/dL 7-18 N GLOMERULAR FILTRATION RATE (test code = GFR) > 60 mL/min >=60 Estimated GFR by using Modified MDRD formula.Chronic kidney disease is defined as either kidney damageor GFR <60 mL/min/1.73 m2 for >3 months. CREATININE (test code = CREAT) 0.50 mg/dL 0.55-1.02 L Note change in reference range due to change in reagent. BUN/CREATININE RATIO (test code = BUN/CREA) 15.3 10-20 N CALCIUM (test code = CA) 9.2 mg/dL 8.5-10.1 N [id number] 07:59:00* Test Item Value Reference Range Interpretation Comments PHOSPHORUS (test code = PHOS) 2.4 mg/dL 2.5-4.9 L [id number] 07:59:00* Test Item Value Reference Range Interpretation Comments MAGNESIUM (test code = MAG) 1.4 mg/dL 1.8-2.4 L CALCIUM [id number] 07:59:00* Test Item Value Reference Range Interpretation Comments CALCIUM IONIZED (test code = ERICH) 1.33 mmol/L 1.12-1.32 H BASIC METABOLIC [id number] 06:59:00* Test Item Value Reference Range Interpretation Comments SODIUM (test code = NA) 143 mmol/L 136-145 N POTASSIUM (test code = K) 3.8 mmol/L 3.5-5.1 N CHLORIDE (test code = CL) 109.0 mmol/L 98-107 H CARBON DIOXIDE (test code = CO2) 29.0 mmol/L 21-32 N ANION GAP (test code = GAP) 10-20 GLUCOSE (test code = GLU) 78 mg/dL 74-106 N BLOOD UREA NITROGEN (test code = BUN) 8 mg/dL 7-18 N GLOMERULAR FILTRATION RATE (test code = GFR) > 60 mL/min >=60 Estimated GFR by using Modified MDRD formula.Chronic kidney disease is defined as either kidney damageor GFR <60 mL/min/1.73 m2 for >3 months. CREATININE (test code = CREAT) 0.50 mg/dL 0.55-1.02 L Note change in reference range due to change in reagent. BUN/CREATININE RATIO (test code = BUN/CREA) 15.3 10-20 N CALCIUM (test code = CA) 9.2 mg/dL 8.5-10.1 N [id number] 06:59:00* Test Item Value Reference Range Interpretation Comments PHOSPHORUS (test code = PHOS) 2.4 mg/dL 2.5-4.9 L [id number] 06:59:00* Test Item Value Reference Range Interpretation Comments MAGNESIUM (test code = MAG) 1.4 mg/dL 1.8-2.4 L CALCIUM [id number] 06:59:00* Test Item Value Reference Range Interpretation Comments CALCIUM IONIZED (test code = ERICH) mmol/L 1.12-1.32 BASIC METABOLIC [id number] 06:59:00* Test Item Value Reference Range Interpretation Comments SODIUM (test code = NA) 143 mmol/L 136-145 N POTASSIUM (test code = K) 3.8 mmol/L 3.5-5.1 N CHLORIDE (test code = CL) 109.0 mmol/L 98-107 H CARBON DIOXIDE (test code = CO2) 29.0 mmol/L 21-32 N Previously reported result: 29.0 mmol/LEdited by: JOSEY on 07/31/19:0659 ANION GAP (test code = GAP) 8.8 10-20 L GLUCOSE (test code = GLU) 78 mg/dL 74-106 N BLOOD UREA NITROGEN (test code = BUN) 8 mg/dL 7-18 N GLOMERULAR FILTRATION RATE (test code = GFR) > 60 mL/min >=60 Estimated GFR by using Modified MDRD formula.Chronic kidney disease is defined as either kidney damageor GFR <60 mL/min/1.73 m2 for >3 months. CREATININE (test code = CREAT) 0.50 mg/dL 0.55-1.02 L Note change in reference range due to change in reagent. BUN/CREATININE RATIO (test code = BUN/CREA) 15.3 10-20 N CALCIUM (test code = CA) 9.2 mg/dL 8.5-10.1 N [id number] 06:59:00* Test Item Value Reference Range Interpretation Comments PHOSPHORUS (test code = PHOS) 2.4 mg/dL 2.5-4.9 L [id number] 06:59:00* Test Item Value Reference Range Interpretation Comments MAGNESIUM (test code = MAG) 1.4 mg/dL 1.8-2.4 L CALCIUM [id number] 06:59:00* Test Item Value Reference Range Interpretation Comments CALCIUM IONIZED (test code = ERICH) mmol/L 1.12-1.32 BASIC METABOLIC [id number] 06:58:00* Test Item Value Reference Range Interpretation Comments SODIUM (test code = NA) 143 mmol/L 136-145 N POTASSIUM (test code = K) 3.8 mmol/L 3.5-5.1 N CHLORIDE (test code = CL) 109.0 mmol/L 98-107 H CARBON DIOXIDE (test code = CO2) mmol/L 21-32 ANION GAP (test code = GAP) 10-20 GLUCOSE (test code = GLU) mg/dL 74-106 BLOOD UREA NITROGEN (test code = BUN) mg/dL 7-18 GLOMERULAR FILTRATION RATE (test code = GFR) mL/min >=60 CREATININE (test code = CREAT) mg/dL 0.55-1.02 BUN/CREATININE RATIO (test code = BUN/CREA) 10-20 CALCIUM (test code = CA) mg/dL 8.5-10.1 [id number] 06:58:00* Test Item Value Reference Range Interpretation Comments PHOSPHORUS (test code = PHOS) mg/dL 2.5-4.9 [id number] 06:58:00* Test Item Value Reference Range Interpretation Comments MAGNESIUM (test code = MAG) mg/dL 1.8-2.4 CALCIUM [id number] 06:58:00* Test Item Value Reference Range Interpretation Comments CALCIUM IONIZED (test code = ERICH) mmol/L 1.12-1.32 CBC W/AUTO [id number] 06:52:00* Test Item Value Reference Range Interpretation Comments WHITE BLOOD CELL (test code = WBC) 4.2 K/mm3 4.5-12.5 L RED BLOOD CELL (test code = RBC) 3.49 mill/mm3 3.7-5.2 L HEMOGLOBIN (test code = HGB) 10.2 gram/dL 11.5-15.5 L HEMATOCRIT (test code = HCT) 33.2 % 36.0-46.0 L MEAN CELL VOLUME (test code = MCV) 95.1 fL 80-98 RESULT VERIFIED BY REPEAT ANALYSIS MEAN CELL HGB (test code = MCH) 29.2 picogram 27.0-33.0 N MEAN CELL HGB CONCETRATION (test code = MCHC) 30.7 gram/dL 33.0-36. 0 L RED CELL DISTRIBUTION WIDTH (test code = RDW) 11.9 % 11.6-16. 2 N RED CELL DISTRIBUTION WIDTH SD (test code = RDW-SD) 40.9 fL 37 .0-51.0 N PLATELET COUNT (test code = PLT) 26 K/mm3 150-450 LL Results called to [id number] by [email or web address] 07/31/19 0630Critical results verified and read back by Nurse? Y MEAN PLATELET VOLUME (test code = MPV) TEST NOT PERFORMED fL 6.7-11 .0 NEUTROPHIL % (test code = NT%) 60.2 % 39.0-69.0 N IMMATURE GRANULOCYTE % (test code = IG%) 0.2 % 0.0-5.0 N LYMPHOCYTE % (test code = LY%) 25.2 % 25.0-55.0 N MONOCYTE % (test code = MO%) 7.5 % 0.0-10.0 N EOSINOPHIL % (test code = EO%) 6.4 % 0.0-5.0 H BASOPHIL % (test code = BA%) 0.5 % 0.0-1.0 N NUCLEATED RBC % (test code = NRBC%) 0.0 % 0-0 N NEUTROPHIL # (test code = NT#) 2.55 K/mm3 1.8-7.7 N IMMATURE GRANULOCYTE # (test code = IG#) 0.01 x10 3/uL 0-0.03 N LYMPHOCYTE # (test code = LY#) 1.07 K/mm3 1.0-5.0 N MONOCYTE # (test code = MO#) 0.32 K/mm3 0-0.8 N EOSINOPHIL # (test code = EO#) 0.27 K/mm3 0.0-0.5 N BASOPHIL # (test code = BA#) 0.02 K/mm3 0.0-0.2 N NUCLEATED RBC # (test code = NRBC#) 0.00 K/mm3 0.0-0.1 N MANUAL DIFF REQUIRED (test code = MDIFF) NO, ONLY SCAN NEEDED DIFFERENTIAL [id number] 06:52:00* Test Item Value Reference Range Interpretation Comments STAIN ACCEPTABILITY (test code = STN ACCEPTABLE) STAIN ACCEPTABLE PLATELET ESTIMATE (test code = PLTEST) DECREASED PLATELET MORPHOLOGY (test code = PLTMORPH) NORMAL PROTHROMBIN [id number] 06:33:00* Test Item Value Reference Range Interpretation Comments PROTHROMBIN TIME PATIENT (test code = PTP) 12.9 seconds 9.0-14.0 N INTERNATIONAL NORMAL RATIO (test code = INR) 1.1 0.8-1.2 N The therapeutic range for oral anticoagulant therapy formost indications is an international normalized ratio (INR)of between 2.0 and 3.0. The recommended therapeutic INRrange for various clinical situations is listed below: Clinical Situation INR range Pulmonary e mbolism treatment (2.0-3.0)Venous thrombosis treatmentVenous thrombosis prophylaxis (high risk surgery)Prevention of systemic embolism from: Acute myocardial infarction Valvular heart disease Atrial fibrillation Mechanical prosthetic heart valves (2.5-3.5) IS PATIENT ON ANTICOAGULANTS? NTHROMBOPLASTIN TIME [id number] 06:33:00* Test Item Value Reference Range Interpretation Comments THROMBOPLASTIN TIME PARTIAL (test code = PTT) 31.9 seconds 25.0-36. 5 N IS PATIENT ON ANTICOAGULANTS? NCBC W/AUTO [id number] 06:32:00* Test Item Value Reference Range Interpretation Comments WHITE BLOOD CELL (test code = WBC) 4.2 K/mm3 4.5-12.5 L RED BLOOD CELL (test code = RBC) 3.49 mill/mm3 3.7-5.2 L HEMOGLOBIN (test code = HGB) 10.2 gram/dL 11.5-15.5 L HEMATOCRIT (test code = HCT) 33.2 % 36.0-46.0 L MEAN CELL VOLUME (test code = MCV) 95.1 fL 80-98 RESULT VERIFIED BY REPEAT ANALYSIS MEAN CELL HGB (test code = MCH) 29.2 picogram 27.0-33.0 N MEAN CELL HGB CONCETRATION (test code = MCHC) 30.7 gram/dL 33.0-36. 0 L RED CELL DISTRIBUTION WIDTH (test code = RDW) 11.9 % 11.6-16. 2 N RED CELL DISTRIBUTION WIDTH SD (test code = RDW-SD) 40.9 fL 37 .0-51.0 N PLATELET COUNT (test code = PLT) 26 K/mm3 150-450 LL Results called to [id number] by [email or web address] 07/31/19 0630Critical results verified and read back by Nurse? Y MEAN PLATELET VOLUME (test code = MPV) TEST NOT PERFORMED fL 6.7-11 .0 NEUTROPHIL % (test code = NT%) 60.2 % 39.0-69.0 N IMMATURE GRANULOCYTE % (test code = IG%) 0.2 % 0.0-5.0 N LYMPHOCYTE % (test code = LY%) 25.2 % 25.0-55.0 N MONOCYTE % (test code = MO%) 7.5 % 0.0-10.0 N EOSINOPHIL % (test code = EO%) 6.4 % 0.0-5.0 H BASOPHIL % (test code = BA%) 0.5 % 0.0-1.0 N NUCLEATED RBC % (test code = NRBC%) 0.0 % 0-0 N NEUTROPHIL # (test code = NT#) 2.55 K/mm3 1.8-7.7 N IMMATURE GRANULOCYTE # (test code = IG#) 0.01 x10 3/uL 0-0.03 N LYMPHOCYTE # (test code = LY#) 1.07 K/mm3 1.0-5.0 N MONOCYTE # (test code = MO#) 0.32 K/mm3 0-0.8 N EOSINOPHIL # (test code = EO#) 0.27 K/mm3 0.0-0.5 N BASOPHIL # (test code = BA#) 0.02 K/mm3 0.0-0.2 N NUCLEATED RBC # (test code = NRBC#) 0.00 K/mm3 0.0-0.1 N MANUAL DIFF REQUIRED (test code = MDIFF) NO, ONLY SCAN NEEDED DIFFERENTIAL [id number] 06:32:00* Test Item Value Reference Range Interpretation Comments STAIN ACCEPTABILITY (test code = STN ACCEPTABLE) CABOT RINGS (test code = CAB) MORPHOLOGY COMMENT (test code = MOC) PLATELET ESTIMATE (test code = PLTEST) PLATELET MORPHOLOGY (test code = PLTMORPH) CBC W/AUTO [id number] 06:32:00* Test Item Value Reference Range Interpretation Comments WHITE BLOOD CELL (test code = WBC) 4.2 K/mm3 4.5-12.5 L RED BLOOD CELL (test code = RBC) 3.49 mill/mm3 3.7-5.2 L HEMOGLOBIN (test code = HGB) 10.2 gram/dL 11.5-15.5 L HEMATOCRIT (test code = HCT) 33.2 % 36.0-46.0 L MEAN CELL VOLUME (test code = MCV) 95.1 fL 80-98 RESULT VERIFIED BY REPEAT ANALYSIS MEAN CELL HGB (test code = MCH) 29.2 picogram 27.0-33.0 N MEAN CELL HGB CONCETRATION (test code = MCHC) 30.7 gram/dL 33.0-36. 0 L RED CELL DISTRIBUTION WIDTH (test code = RDW) 11.9 % 11.6-16. 2 N RED CELL DISTRIBUTION WIDTH SD (test code = RDW-SD) 40.9 fL 37 .0-51.0 N PLATELET COUNT (test code = PLT) 26 K/mm3 150-450 LL Results called to [id number] by [email or web address] 07/31/19 0630Critical results verified and read back by Nurse? Y MEAN PLATELET VOLUME (test code = MPV) TEST NOT PERFORMED fL 6.7-11 .0 NEUTROPHIL % (test code = NT%) 60.2 % 39.0-69.0 N IMMATURE GRANULOCYTE % (test code = IG%) 0.2 % 0.0-5.0 N LYMPHOCYTE % (test code = LY%) 25.2 % 25.0-55.0 N MONOCYTE % (test code = MO%) 7.5 % 0.0-10.0 N EOSINOPHIL % (test code = EO%) 6.4 % 0.0-5.0 H BASOPHIL % (test code = BA%) 0.5 % 0.0-1.0 N NUCLEATED RBC % (test code = NRBC%) 0.0 % 0-0 N NEUTROPHIL # (test code = NT#) 2.55 K/mm3 1.8-7.7 N IMMATURE GRANULOCYTE # (test code = IG#) 0.01 x10 3/uL 0-0.03 N LYMPHOCYTE # (test code = LY#) 1.07 K/mm3 1.0-5.0 N MONOCYTE # (test code = MO#) 0.32 K/mm3 0-0.8 N EOSINOPHIL # (test code = EO#) 0.27 K/mm3 0.0-0.5 N BASOPHIL # (test code = BA#) 0.02 K/mm3 0.0-0.2 N NUCLEATED RBC # (test code = NRBC#) 0.00 K/mm3 0.0-0.1 N MANUAL DIFF REQUIRED (test code = MDIFF) NO, ONLY SCAN NEEDED DIFFERENTIAL [id number] 06:32:00* Test Item Value Reference Range Interpretation Comments STAIN ACCEPTABILITY (test code = STN ACCEPTABLE) CABOT RINGS (test code = CAB) MORPHOLOGY COMMENT (test code = MOC) PLATELET ESTIMATE (test code = PLTEST) PLATELET MORPHOLOGY (test code = PLTMORPH) CBC W/AUTO [id number] 06:32:00* Test Item Value Reference Range Interpretation Comments WHITE BLOOD CELL (test code = WBC) 4.2 K/mm3 4.5-12.5 L RED BLOOD CELL (test code = RBC) 3.49 mill/mm3 3.7-5.2 L HEMOGLOBIN (test code = HGB) 10.2 gram/dL 11.5-15.5 L HEMATOCRIT (test code = HCT) 33.2 % 36.0-46.0 L MEAN CELL VOLUME (test code = MCV) 95.1 fL 80-98 RESULT VERIFIED BY REPEAT ANALYSIS MEAN CELL HGB (test code = MCH) 29.2 picogram 27.0-33.0 N MEAN CELL HGB CONCETRATION (test code = MCHC) 30.7 gram/dL 33.0-36. 0 L RED CELL DISTRIBUTION WIDTH (test code = RDW) 11.9 % 11.6-16. 2 N RED CELL DISTRIBUTION WIDTH SD (test code = RDW-SD) 40.9 fL 37 .0-51.0 N PLATELET COUNT (test code = PLT) 26 K/mm3 150-450 LL Results called to [id number] by [email or web address] 07/31/19 0630Critical results verified and read back by Nurse? Y MEAN PLATELET VOLUME (test code = MPV) TEST NOT PERFORMED fL 6.7-11 .0 NEUTROPHIL % (test code = NT%) 60.2 % 39.0-69.0 N IMMATURE GRANULOCYTE % (test code = IG%) 0.2 % 0.0-5.0 N LYMPHOCYTE % (test code = LY%) 25.2 % 25.0-55.0 N MONOCYTE % (test code = MO%) 7.5 % 0.0-10.0 N EOSINOPHIL % (test code = EO%) 6.4 % 0.0-5.0 H BASOPHIL % (test code = BA%) 0.5 % 0.0-1.0 N NUCLEATED RBC % (test code = NRBC%) 0.0 % 0-0 N NEUTROPHIL # (test code = NT#) 2.55 K/mm3 1.8-7.7 N IMMATURE GRANULOCYTE # (test code = IG#) 0.01 x10 3/uL 0-0.03 N LYMPHOCYTE # (test code = LY#) 1.07 K/mm3 1.0-5.0 N MONOCYTE # (test code = MO#) 0.32 K/mm3 0-0.8 N EOSINOPHIL # (test code = EO#) 0.27 K/mm3 0.0-0.5 N BASOPHIL # (test code = BA#) 0.02 K/mm3 0.0-0.2 N NUCLEATED RBC # (test code = NRBC#) 0.00 K/mm3 0.0-0.1 N MANUAL DIFF REQUIRED (test code = MDIFF) NO, ONLY SCAN NEEDED DIFFERENTIAL [id number] 06:32:00* Test Item Value Reference Range Interpretation Comments STAIN ACCEPTABILITY (test code = STN ACCEPTABLE) MORPHOLOGY COMMENT (test code = MOC) PLATELET ESTIMATE (test code = PLTEST) PLATELET MORPHOLOGY (test code = PLTMORPH) CBC W/AUTO [id number] 06:32:00* Test Item Value Reference Range Interpretation Comments WHITE BLOOD CELL (test code = WBC) 4.2 K/mm3 4.5-12.5 L RED BLOOD CELL (test code = RBC) 3.49 mill/mm3 3.7-5.2 L HEMOGLOBIN (test code = HGB) 10.2 gram/dL 11.5-15.5 L HEMATOCRIT (test code = HCT) 33.2 % 36.0-46.0 L MEAN CELL VOLUME (test code = MCV) 95.1 fL 80-98 RESULT VERIFIED BY REPEAT ANALYSIS MEAN CELL HGB (test code = MCH) 29.2 picogram 27.0-33.0 N MEAN CELL HGB CONCETRATION (test code = MCHC) 30.7 gram/dL 33.0-36. 0 L RED CELL DISTRIBUTION WIDTH (test code = RDW) 11.9 % 11.6-16. 2 N RED CELL DISTRIBUTION WIDTH SD (test code = RDW-SD) 40.9 fL 37 .0-51.0 N PLATELET COUNT (test code = PLT) 26 K/mm3 150-450 LL Results called to [id number] by [email or web address] 07/31/19 0630Critical results verified and read back by Nurse? Y MEAN PLATELET VOLUME (test code = MPV) TEST NOT PERFORMED fL 6.7-11 .0 NEUTROPHIL % (test code = NT%) 60.2 % 39.0-69.0 N IMMATURE GRANULOCYTE % (test code = IG%) 0.2 % 0.0-5.0 N LYMPHOCYTE % (test code = LY%) 25.2 % 25.0-55.0 N MONOCYTE % (test code = MO%) 7.5 % 0.0-10.0 N EOSINOPHIL % (test code = EO%) 6.4 % 0.0-5.0 H BASOPHIL % (test code = BA%) 0.5 % 0.0-1.0 N NUCLEATED RBC % (test code = NRBC%) 0.0 % 0-0 N NEUTROPHIL # (test code = NT#) 2.55 K/mm3 1.8-7.7 N IMMATURE GRANULOCYTE # (test code = IG#) 0.01 x10 3/uL 0-0.03 N LYMPHOCYTE # (test code = LY#) 1.07 K/mm3 1.0-5.0 N MONOCYTE # (test code = MO#) 0.32 K/mm3 0-0.8 N EOSINOPHIL # (test code = EO#) 0.27 K/mm3 0.0-0.5 N BASOPHIL # (test code = BA#) 0.02 K/mm3 0.0-0.2 N NUCLEATED RBC # (test code = NRBC#) 0.00 K/mm3 0.0-0.1 N MANUAL DIFF REQUIRED (test code = MDIFF) NO, ONLY SCAN NEEDED DIFFERENTIAL [id number] 06:32:00* Test Item Value Reference Range Interpretation Comments STAIN ACCEPTABILITY (test code = STN ACCEPTABLE) CABOT RINGS (test code = CAB) MORPHOLOGY COMMENT (test code = MOC) PLATELET ESTIMATE (test code = PLTEST) PLATELET MORPHOLOGY (test code = PLTMORPH) - XR CHEST 1 [id number] 06:13:00 FAX: Justin Doran [place]: B St: [facility] FAX: Ilan Holt MD Name: MARCELA CUMMINGS [facility] : 1950 Age/S: 69/F [address] Unit #: [id number] Loc: V.[facility] [place] [address] Phys: Justin Doran Acct: [id number] Dis Date: Status: ADM IN PHONE #: [phone] Exam Date: 07/31/2019516 FAX #: [phone] Reason: Respiratory Failure EXAMS: CPT CODE: [id number] XR CHEST 1 V 46664 CLINICAL HISTORY: Respiratory Failure TECHNIQUE: AP chest x-ray COMPARISON: Previous day. IMPRESSION: Improved right basilar subsegmental atelectasis. No pleural effusion. Normal heart size. Tracheostomy tube. LOCATION: LP at 0613 Reported and signed by: Lenka Farrar D.O. CC: Justin Doran; Ilan Stein Technologist: OCTAVIO Darling Trnscrd Date/Time/By: 07/31/2019 (06) : By: [email or web address] Orig Print D/T: S: 07/31/2019 (0635) PAGE 1 Signed Report - XR CHEST 1 [id number] 06:13:00 FAX: Justin Doran [place]: B St: DIS FAX: Y Ilan Stein MD Name: MOJGAN CUMMINGS [facility] : 1950 Age/S: 69/F [address] [facility] Unit #: [id number] Loc: V.[address] [place] [address] Phys: Justin Doran Acct: [id number] Dis Date: [id number] Status: DIS IN PHONE #: [phone] Exam Date: 07/31/2019516 FAX #: [phone] Reason: Respiratory Failure EXAMS: CPT CODE: [id number] XR CHEST 1 V 03197 CLINICAL HISTORY: Respiratory Failure TECHNIQUE: AP chest x-ray COMPARISON: Previous day. IMPRESSION: Improved right basilar subsegmental atelectasis. No pleural effusion. Normal heart size. Tracheostomy tube. LOCATION: LP at 0613 Reported and signed by: Lenka Farrar D.O. CC: Justin Doran; Ilan Stein Technologist: OCTAVIO Darling Trnscrd Date/Time/By: 07/31/2019 (06) : By: [email or web address] Orig Print D/T: S: 07/31/2019 (0627) PAGE 1 Signed Report - US RETRO [id number] 14:00:00 Name: MARCELA CUMMINGS [facility] : 1950 Age/S: 69 / F [address] Unit #: [id number] Loc: [place] [address] Phys: Yobani Prieto MD Acct: [id number] Di s Date: Status: ADM IN PHONE #: [phone] Exam Date: 07/30/2019 1212 FAX #: Reason: pyelonephritis EXAMS: CPT CODE: [id number] US RETRO LTD [id number] HISTORY: Pyelonephritis. COMPARISON: Abdominal ultrasound from same day. Loca tion: [facility]. Bilateral renal ultrasound: Both kidneys are free from hydronephrosis. Nonobstructing calyceal stones in the right upper pole. Stones measured 1.4 and 1.6 cm. No stones on the left. Echogen icity and texture appears within normal limits. No perinephric collections on either side. Right kidney is measuring 11.1 x 4 x 4.2 cm. Left kidney is measuring 9.1 x 5.2 x 5 cm. Unremarkable urinary bladder. No wall thickening or mural nodules IMPRESSION: No hydronephrosis on either side. Nonobstructing right upper pole calyceal stones measuring 1.4 and 1.6 cm. Echogenicity and texture is within normal limits. No stones on the left. Unremarkable urinary bladder. 19 at 1400 Reported and signed by: Clem Grissom M.D. CC: Ilan Stein; Leah Prieto MD gist: Isa Montoya RT(S), RDMS Trnscb Date/Time: 09/29/2018 (1400) Harry Orig Print D/T: S: 07/30/2019 (1403) Probe: PAGE 1 Signed Rep ort - US RETRO [id number] 14:00:00 Name: MOJGAN CUMMINGS [facility] : 1950 Age/S: 69 / F [address] [facility] Unit #: [id number] Loc: [place] [address] Phys: Yobani Prieto MD Acct: [id number] Di s Date: [id number] Status: DIS IN PHONE #: [phone] Exam Date: 07/30/2019 1212 FAX #: Reason: pyelonephritis EXAMS: CPT CODE: [id number] RETRO LTD 14964 HISTORY: Pyelonephritis. COMPARISON: Abdominal ultrasound from same day. Loca tion: [facility]. Bilateral renal ultrasound: Both kidneys are free from hydronephrosis. Nonobstructing calyceal stones in the right upper pole. Stones measured 1.4 and 1.6 cm. No stones on the left. Echogen icity and texture appears within normal limits. No perinephric collections on either side. Right kidney is measuring 11.1 x 4 x 4.2 cm. Left kidney is measuring 9.1 x 5.2 x 5 cm. Unremarkable urinary bladder. No wall thickening or mural nodules IMPRESSION: No hydronephrosis on either side. Nonobstructing right upper pole calyceal stones measuring 1.4 and 1.6 cm. Echogenicity and texture is within normal limits. No stones on the left. Unremarkable urinary bladder. 19 at 1400 Reported and signed by: Clem Grissom M.D. CC: Ilan Stein; Leah Prieto MD gist: Isa Montoya RT(S), RDMS Trnscb Date/Time: 09/29/2018 (1400) [email or web address] Orig Print D/T: S: 07/30/2019 (1408) Probe: PAGE 1 Signed Rep ort [id number] 11:48:00* Test Item Value Reference Range Interpretation Comments PHOSPHORUS (test code = PHOS) 2.5 mg/dL 2.5-4.9 N [id number] 11:48:00* Test Item Value Reference Range Interpretation Comments MAGNESIUM (test code = MAG) 1.7 mg/dL 1.8-2.4 L CALCIUM [id number] 11:48:00* Test Item Value Reference Range Interpretation Comments CALCIUM IONIZED (test code = ERICH) 1.38 mmol/L 1.12-1.32 H FE W/TOTAL IRON BINDING CAP.2019-07-30 11:33:00* Test Item Value Reference Range Interpretation Comments SERUM IRON (test code = IRON) 48 ug/dL 50-175 L TOTAL IRON BINDING CAPACITY (test code = TIBC) 179 mcg/dL 250-450 L IRON SATURATION (test code = FESAT) 26.82 % 13-45 N VITAMIN [id number] 11:33:00* Test Item Value Reference Range Interpretation Comments VITAMIN B12 (test code = VITB12) 394 pg/mL 193-986 N FOLIC [id number] 11:33:00* Test Item Value Reference Range Interpretation Comments FOLIC ACID (test code = FOL) 19.7 ng/mL 3.10-17.50 H [id number] 11:33:00* Test Item Value Reference Range Interpretation Comments FERRITIN (test code = SEBASTIAN) 486 ng/mL 8-388 H - US ABDOMEN [id number] 11:09:00 Name: MARCELA CUMMINGS [facility] : 1950 Age/S: 69 / F [address] Unit #: [id number] Loc: [place] [address] Phys: Mary Jane Willis MD Acct: [id number] Dis Date: Status: ADM IN PHONE #: [phone] Exam Date: 07/30/2019905 FAX #: [phone] Reason: abd pain EXAMS: CPT CODE: [id number] US ABDOMEN COMPLETE [id number] HISTORY: Abdominal pain. COMPARISON: None available. Location: [facility]. Note: Study slightly limited due to panic attacks during the study. The liver is normal in echogenicity and texture measuring 15.1 cm in length. No no intrahepatic biliary ductal dilatation. CBD is mildly dilated at 8.6 mm. Main portal vein is patent with hepatopedal flow and normal spectral waveform. Gallbladder demonstrating multiple gallstones. No pericholecystic fluid or wall thickening. No ascites. Kidneys are free from hydronephrosis. Nonobstructing 1.3 cm calyceal stone in the right upper pole. Right kidney measured 11.1 cm in length. Images of the left kidney and spleen are not included as patient was unable to continue with the exam. Pancreas, aorta and IVC obscured by bowel gas pattern. IMPRESSION: Limited exam due to pelvic attacks for the patient during the examination and left kidney and spleen were not imaged. Gallstones without pericholecystic fluid or wall thickening. Unremarkable liver and right kidney with nonobstructing 1.3 cm right upper pole calyceal stone without hydronephrosis. at 1109 Reported and signed by: Clem Grissom M.D. CC: Ilan Stein; Mary Jane Willis MD Technologist: Isa Montoya RT(S), [facility] Trnscb Date/Time: 07/30/2019 (1109) [email or web address] Orig Print D/T: S: 07/30/2019 (1112) Probe: PAGE 1 Signed Report - US ABDOMEN [id number] 11:09:00 Name: MOJGAN CUMMINGS [facility] : 1950 Age/S: 69 / F [address] [facility] Unit #: [id number] Loc: [place] [address] Phys: Mary Jane Willis MD Acct: [id number] Dis Date: [id number] Status: DIS IN PHONE #: [phone] Exam Date: 07/30/2019905 FAX #: [phone] Reason: abd pain EXAMS: CPT CODE: [id number] US ABDOMEN COMPLETE [id number] HISTORY: Abdominal pain. COMPARISON: None available. Location: [facility]. Note: Study slightly limited due to panic attacks during the study. The liver is normal in echogenicity and texture measuring 15.1 cm in length. No no intrahepatic biliary ductal dilatation. CBD is mildly dilated at 8.6 mm. Main portal vein is patent with hepatopedal flow and normal spectral waveform. Gallbladder demonstrating multiple gallstones. No pericholecystic fluid or wall thickening. No ascites. Kidneys are free from hydronephrosis. Nonobstructing 1.3 cm calyceal stone in the right upper pole. Right kidney measured 11.1 cm in length. Images of the left kidney and spleen are not included as patient was unable to continue with the exam. Pancreas, aorta and IVC obscured by bowel gas pattern. IMPRESSION: Limited exam due to pelvic attacks for the patient during the examination and left kidney and spleen were not imaged. Gallstones without pericholecystic fluid or wall thickening. Unremarkable liver and right kidney with nonobstructing 1.3 cm right upper pole calyceal stone without hydronephrosis. at 1109 Reported and signed by: Clem Grissom M.D. CC: Ilan Stein; Mary Jane Willis MD Technologist: Isa Montoya RT(S), [place] Trnwyb Date/Time: 07/30/2019 (4676) [email or web address] Orig Print D/T: S: 07/30/2019 (5773) Probe: PAGE 1 Signed Report PROTHROMBIN [id number] 11:07:00* Test Item Value Reference Range Interpretation Comments PROTHROMBIN TIME PATIENT (test code = PTP) 12.1 seconds 9.0-14.0 N INTERNATIONAL NORMAL RATIO (test code = INR) 1.0 0.8-1.2 N The therapeutic range for oral anticoagulant therapy formost indications is an international normalized ratio (INR)of between 2.0 and 3.0. The recommended therapeutic INRrange for various clinical situations is listed below: Clinical Situation INR range Pulmonary e mbolism treatment (2.0-3.0)Venous thrombosis treatmentVenous thrombosis prophylaxis (high risk surgery)Prevention of systemic embolism from: Acute myocardial infarction Valvular heart disease Atrial fibrillation Mechanical prosthetic heart valves (2.5-3.5) THROMBOPLASTIN TIME [id number] 11:07:00* Test Item Value Reference Range Interpretation Comments THROMBOPLASTIN TIME PARTIAL (test code = PTT) 32.1 seconds 25.0-36. 5 N [id number] 11:07:00* Test Item Value Reference Range Interpretation Comments FIBRINOGEN (test code = FIB) 316 mg/dL 200-400 N FIBRIN SPLIT [id number] 11:07:00* Test Item Value Reference Range Interpretation Comments FIBRIN SPLIT PRODUCT (test code = FSP) mcg/mL <5 [id number] 11:07:00* Test Item Value Reference Range Interpretation Comments D-DIMER (test code = DDIMER) 583.00 ng/mLFEU 0-500 HH Results called to [id number] by IVANA 07/30/19 1102Critical results verified and read back by Nurse? YClinical Cut-off value for D-Dimer is 500 ng/mL FEU. Comment: The [employer] D- Dimer assay is intended for use asan aid in the diagnosis of venous thromboembolism (VTE)[deep vein thrombosis (DVT) or pulmonary embolism (PE)].The measurement of D-Dimer should not be used as an aid inthe diagnosis of VTE, in patient with: -Therapeutic dose anticoagulant therapy for >24 hours - Fibrinolytic therapy within previous 7 days -Trauma or surgery within previous 4 weeks -Disseminated malignancies -Aortic aneurysm -Sepsis, severe infections, pneumonia, severe skin infections -Liver cirrhosis - ANTITHROMBIN III (ATIII)2019-07-30 11:07:00* Test Item Value Reference Range Interpretation Comments ANTITHROMBIN III (ATIII) (test code = AT3) % 75-135 [id number] 10:58:00* Test Item Value Reference Range Interpretation Comments PHOSPHORUS (test code = PHOS) mg/dL 2.5-4.9 [id number] 10:58:00* Test Item Value Reference Range Interpretation Comments MAGNESIUM (test code = MAG) mg/dL 1.8-2.4 CALCIUM [id number] 10:58:00* Test Item Value Reference Range Interpretation Comments CALCIUM IONIZED (test code = ERICH) 1.38 mmol/L 1.12-1.32 H HGB [id number] 10:37:00* Test Item Value Reference Range Interpretation Comments HEMOGLOBIN (test code = HGB) 9.3 gram/dL 11.5-15.5 L RESULT VERIFIED BY REPEAT ANALYSIS HEMATOCRIT (test code = HCT) 30.8 % 36.0-46.0 L - XR CHEST 1 [id number] 07:14:00 FAX: Kian Rogers [phone] [place]: St: [facility] FAX: Ilan Holt MD Name: MARCELA CUMMINGS [facility] : 1950 Age/S: 69/F [address] [facility] Unit #: [id number] Loc: V.S24 [place] [address] Phys: Kian Rogers Acct: [id number] Dis Date: Status: ADM IN PHONE #: [phone] Exam Date: 07/30/2019 0601 FAX #: [phone] Reason: updated pulm view. EXAMS: CPT CODE: [id number] XR CHEST 1 V 79929 HISTORY: updated pulm view. TECHNIQUE: AP chest x-ray COMPARISON: 07/28/19 FINDINGS: Developing mild right basilar atelectasis/consolidation. No pleural effusion. Normal heart size. Mediastinal silhouette is unremarkable. Tracheostomy tube. Degenerative changes of the spine and shoulders. IMPRESSION: Developing mild right basilar atelectasis/consolidation. LOCATION: at 0714 Reported and signed by: Lenka Farrar D.O. CC: Kian Rogers; Ilan Stein Technologist: OCTAVIO VASQUEZ JR; Abigail Darling Trnscrd Date/Time/By: 07/30/2019 (0714) : By: [email or web address] Orig Print D/T: S: 07/30/2019 (0750) PAGE 1 Signed Report - XR CHEST 1 [id number] 07:14:00 FAX: Kian Rogers [phone] [place]: B St: DIS FAX: Y Ilan Stein MD Name: MOJGAN CUMMINGS [facility] : 1950 Age/S: 69/F [address] [facility] Unit #: [id number] Loc: V.20[address] [place] [address] Phys: Kian Rogers Acct: [id number] Dis Date: [id number] Status: DIS IN PHONE #: [phone] Exam Date: 07/30/2019 0601 FAX #: [phone] Reason: updated pulm view. EXAMS: CPT CODE: [id number] XR CHEST 1 V 16858 HISTORY: updated pulm view. TECHNIQUE: AP chest x-ray COMPARISON: 07/28/19 FINDINGS: Dev eloping mild right basilar atelectasis/consolidation. No pleural effusion. Normal heart size. Mediastinal silhouette is unremarkable. Tracheostomy t ube. Degenerative changes of the spine and shoulders. IMPRESSION : Developing mild right basilar atelectasis/consolidation. LOCATION: [facility] Alexisi sherry Signed by Lenka Farrar D.O. on 07/30/2019 at 0714 Rep orted and signed by: Lenka Farrar D.O. CC: Kian Rogers; Ilan Lugo Technologist: OCTAVIO Darling Trnscrd Date/Time/By: 07/30/2019 (0714) : By: [email or web address] Orig Print D/T: S: 07/30/2019 (0732) PAGE 1 Signed Report CBC W/MANUAL DIFF 2019-07-30 06:37:00* Test Item Value Reference Range Interpretation Comments WHITE BLOOD CELL (test code = WBC) 8.3 K/mm3 4.5-12.5 N RED BLOOD CELL (test code = RBC) 3.44 mill/mm3 3.7-5.2 L HEMOGLOBIN (test code = HGB) 12.6 gram/dL 11.5-15.5 HEMATOCRIT (test code = HCT) 36.5 % 36.0-46.0 N MEAN CELL VOLUME (test code = MCV) 106.1 fL 80-98 H MEAN CELL HGB (test code = MCH) 36.6 picogram 27.0-33.0 H MEAN CELL HGB CONCETRATION (test code = MCHC) 34.5 gram/dL 33.0-36. 0 N RED CELL DISTRIBUTION WIDTH (test code = RDW) 16.4 % 11.6-16. 2 H RED CELL DISTRIBUTION WIDTH SD (test code = RDW-SD) 63.7 fL 37 .0-51.0 H PLATELET COUNT (test code = PLT) 34 K/mm3 150-450 LL Results called [id number] by [facility] 07/30/19 0406Critical results verified and read back by Nurse? Y MEAN PLATELET VOLUME (test code = MPV) 13.0 fL 6.7-11.0 H IMMATURE GRANULOCYTE % (test code = IG%) 3.1 % 0.0-5.0 N NUCLEATED RBC % (test code = NRBC%) 0.2 % 0-0 H NEUTROPHIL # (test code = NT#) 5.96 K/mm3 1.8-7.7 N IMMATURE GRANULOCYTE # (test code = IG#) 0.26 x10 3/uL 0-0.03 H LYMPHOCYTE # (test code = LY#) 1.06 K/mm3 1.0-5.0 N MONOCYTE # (test code = MO#) 0.92 K/mm3 0-0.8 H EOSINOPHIL # (test code = EO#) 0.05 K/mm3 0.0-0.5 N BASOPHIL # (test code = BA#) 0.03 K/mm3 0.0-0.2 N NUCLEATED RBC # (test code = NRBC#) 0.02 K/mm3 0.0-0.1 N MANUAL DIFF REQUIRED (test code = MDIFF) YES STAIN ACCEPTABILITY (test code = STN ACCEPTABLE) STAIN ACCEPTABLE TOTAL CELLS COUNTED (test code = TCC) 115 #CELLS SEGMENTED NEUTROPHILS (test code = SEG) 78.2 % 39-69 H BAND NEUTROPHIL (test code = BAND) 0 % 0-10 N LYMPHOCYTE (test code = LYMPH) 9.6 % 25-55 L REACTIVE LYMPH (test code = RELYMPH) 0 % MONOCYTE (test code = MON) 12.2 % 0-10 H EOSINOPHIL (test code = EOS) 0 % 0.0-5.0 N BASOPHIL (test code = BASO) 0 % 0-1.0 N METAMYELOCYTE (test code = META) 0 % 0-0 N MYELOCYTE (test code = MYELO) 0 % 0.0-0.0 N PROMYELOCYTE (test code = PROM) 0 % 0-0 N POIKILOCYTOSIS (test code = POIK) 1+ ANISOCYTOSIS (test code = ANISO) 3+ MACROCYTOSIS (test code = MACR) 3+ PLATELET ESTIMATE (test code = PLTEST) DECREASED PLATELET MORPHOLOGY (test code = PLTMORPH) NORMAL IMMATURE FORMS (test code = IMMAT) 0 % 0-0 N T3 [id number] 06:07:00* Test Item Value Reference Range Interpretation Comments T3 FREE (test code = T3F) 1.9 pg/mL 2.0-4.4 L Pe rformed At: [facility] [address] [id number] Kyle L MD Ph:[phone] B-TYPE NATRIURETIC [id number] 06:07:00* Test Item Value Reference Range Interpretation Comments B-TYPE NATRIURETIC PEPTIDE (test code = BNP) 51.07 pgram/mL 0-100 N COMPREHENSIVE METABOLIC [id number] 06:07:00* Test Item Value Reference Range Interpretation Comments SODIUM (test code = NA) 146 mmol/L 136-145 H POTASSIUM (test code = K) 3.5 mmol/L 3.5-5.1 N CHLORIDE (test code = CL) 112.0 mmol/L 98-107 H CARBON DIOXIDE (test code = CO2) 28.0 mmol/L 21-32 N ANION GAP (test code = GAP) 9.5 10-20 L GLUCOSE (test code = GLU) 95 mg/dL 74-106 N BLOOD UREA NITROGEN (test code = BUN) 25 mg/dL 7-18 H GLOMERULAR FILTRATION RATE (test code = GFR) > 60 mL/min >=60 Estimated GFR by using Modified MDRD formula.Chronic kidney disease is defined as either kidney damageor GFR <60 mL/min/1.73 m2 for >3 months. CREATININE (test code = CREAT) 0.50 mg/dL 0.55-1.02 L Note change in reference range due to change in reagent. BUN/CREATININE RATIO (test code = BUN/CREA) 48.1 10-20 H TOTAL PROTEIN (test code = PROT) 6.3 gram/dL 6.4-8.2 L ALBUMIN (test code = ALB) 3.3 g/dL 3.4-5.0 L GLOBULIN (test code = GLOB) 3.0 gram/dL 2.7-4.2 N ALBUMIN/GLOBULIN RATIO (test code = A/G) 1.1 0.75-1.50 N CALCIUM (test code = CA) 9.8 mg/dL 8.5-10.1 N BILIRUBIN TOTAL (test code = BILT) 0.30 mg/dL 0.0-1.0 N SGOT/AST (test code = AST) 14 IUnit/L 15-37 L SGPT/ALT (test code = ALT) 14 IUnit/L 12-78 N ALKALINE PHOSPHATASE TOTAL (test code = ALKP) 96 IUnit/L 45-117 N Note change in reference range due to change in reagent. [id number] 06:07:00* Test Item Value Reference Range Interpretation Comments PHOSPHORUS (test code = PHOS) 2.6 mg/dL 2.5-4.9 N [id number] 06:07:00* Test Item Value Reference Range Interpretation Comments LIPASE (test code = LIP) 23 U/L 73.0-393.0 L [id number] 06:07:00* Test Item Value Reference Range Interpretation Comments MAGNESIUM (test code = MAG) 1.3 mg/dL 1.8-2.4 L SERUM [id number] 06:07:00* Test Item Value Reference Range Interpretation Comments SERUM IRON (test code = IRON) 63 ug/dL 50-175 N TOTAL IRON BINDING [id number] 06:07:00* Test Item Value Reference Range Interpretation Comments TOTAL IRON BINDING CAPACITY (test code = TIBC) 176 mcg/dL 250-450 L THYROID PROFILE [id number] 06:07:00* Test Item Value Reference Range Interpretation Comments T3 UPTAKE (test code = T3UP) 37.0 % 30.0-40.0 N T4 (THYROXINE) (test code = T4) 7.0 ug/dL 4.5-13.9 N T7 (FREE THYROXINE INDEX) (test code = T7) 2.59 FTI 1.3-5.1 N THYROID STIMULATING HORMONE (test code = TSH) 0.461 uIU/mL 0.36-3.7 4 N TSH REFERENCE RANGES: EUTHYROID: 0.35 - 4.3 mIU/mL HYPO : > 5.5 mIU/mL HYPER : < 0.35 mIU/mL TOTAL [id number] 06:07:00* Test Item Value Reference Range Interpretation Comments TOTAL T3 (test code = T3) 74 ng/dL 71-180 Pe rformed At: [facility] [id number] Kyle L MD Ph:[phone] T4 [id number] 06:07:00* Test Item Value Reference Range Interpretation Comments T4 FREE (test code = T4F) 0.85 ng/dL 0.76-1.46 N [id number] 06:07:00* Test Item Value Reference Range Interpretation Comments TROPONIN-I (test code = TROPI) <0.015 ng/mL 0-0.045 N CALCIUM [id number] 06:07:00* Test Item Value Reference Range Interpretation Comments CALCIUM IONIZED (test code = ERICH) 1.44 mmol/L 1.12-1.32 H BASIC METABOLIC [id number] 05:39:00* Test Item Value Reference Range Interpretation Comments SODIUM (test code = NA) 149 mmol/L 136-145 H RESU LT VERIFIED BY REPEAT ANALYSIS POTASSIUM (test code = K) 3.0 mmol/L 3.5-5.1 L CHLORIDE (test code = CL) 113.0 mmol/L 98-107 H CARBON DIOXIDE (test code = CO2) 25.0 mmol/L 21-32 N ANION GAP (test code = GAP) 14.0 10-20 N GLUCOSE (test code = GLU) 119 mg/dL 74-106 H BLOOD UREA NITROGEN (test code = BUN) 86 mg/dL 7-18 H GLOMERULAR FILTRATION RATE (test code = GFR) 22 mL/min >=60 Estimated GFR by using Modified MDRD formula.Chronic kidney disease is defined as either kidney damageor GFR <60 mL/min/1.73 m2 for >3 months. CREATININE (test code = CREAT) 2.20 mg/dL 0.55-1.02 H Note change in reference range due to change in reagent. BUN/CREATININE RATIO (test code = BUN/CREA) 39.4 10-20 H CALCIUM (test code = CA) 8.1 mg/dL 8.5-10.1 L CBC W/MANUAL [id number] 04:07:00* Test Item Value Reference Range Interpretation Comments WHITE BLOOD CELL (test code = WBC) 8.3 K/mm3 4.5-12.5 N RED BLOOD CELL (test code = RBC) 3.44 mill/mm3 3.7-5.2 L HEMOGLOBIN (test code = HGB) 12.6 gram/dL 11.5-15.5 HEMATOCRIT (test code = HCT) 36.5 % 36.0-46.0 N MEAN CELL VOLUME (test code = MCV) 106.1 fL 80-98 H MEAN CELL HGB (test code = MCH) 36.6 picogram 27.0-33.0 H MEAN CELL HGB CONCETRATION (test code = MCHC) 34.5 gram/dL 33.0-36. 0 N RED CELL DISTRIBUTION WIDTH (test code = RDW) 16.4 % 11.6-16. 2 H RED CELL DISTRIBUTION WIDTH SD (test code = RDW-SD) 63.7 fL 37 .0-51.0 H PLATELET COUNT (test code = PLT) 34 K/mm3 150-450 LL Results called [id number] by ANJALI 07/30/19 0406Critical results verified and read back by Nurse? Y MEAN PLATELET VOLUME (test code = MPV) 13.0 fL 6.7-11.0 H IMMATURE GRANULOCYTE % (test code = IG%) 3.1 % 0.0-5.0 N NUCLEATED RBC % (test code = NRBC%) 0.2 % 0-0 H NEUTROPHIL # (test code = NT#) 5.96 K/mm3 1.8-7.7 N IMMATURE GRANULOCYTE # (test code = IG#) 0.26 x10 3/uL 0-0.03 H LYMPHOCYTE # (test code = LY#) 1.06 K/mm3 1.0-5.0 N MONOCYTE # (test code = MO#) 0.92 K/mm3 0-0.8 H EOSINOPHIL # (test code = EO#) 0.05 K/mm3 0.0-0.5 N BASOPHIL # (test code = BA#) 0.03 K/mm3 0.0-0.2 N NUCLEATED RBC # (test code = NRBC#) 0.02 K/mm3 0.0-0.1 N MANUAL DIFF REQUIRED (test code = MDIFF) YES STAIN ACCEPTABILITY (test code = STN ACCEPTABLE) TOTAL CELLS COUNTED (test code = TCC) #CELLS SEGMENTED NEUTROPHILS (test code = SEG) % 39-69 LYMPHOCYTE (test code = LYMPH) % 25-55 MONOCYTE (test code = MON) % 0-10 EOSINOPHIL (test code = EOS) % 0.0-5.0 CABOT RINGS (test code = CAB) MORPHOLOGY COMMENT (test code = MOC) PLATELET ESTIMATE (test code = PLTEST) PLATELET MORPHOLOGY (test code = PLTMORPH) CBC W/MANUAL [id number] 04:07:00* Test Item Value Reference Range Interpretation Comments WHITE BLOOD CELL (test code = WBC) 8.3 K/mm3 4.5-12.5 N RED BLOOD CELL (test code = RBC) 3.44 mill/mm3 3.7-5.2 L HEMOGLOBIN (test code = HGB) 12.6 gram/dL 11.5-15.5 HEMATOCRIT (test code = HCT) 36.5 % 36.0-46.0 N MEAN CELL VOLUME (test code = MCV) 106.1 fL 80-98 H MEAN CELL HGB (test code = MCH) 36.6 picogram 27.0-33.0 H MEAN CELL HGB CONCETRATION (test code = MCHC) 34.5 gram/dL 33.0-36. 0 N RED CELL DISTRIBUTION WIDTH (test code = RDW) 16.4 % 11.6-16. 2 H RED CELL DISTRIBUTION WIDTH SD (test code = RDW-SD) 63.7 fL 37 .0-51.0 H PLATELET COUNT (test code = PLT) 34 K/mm3 150-450 LL Results called [id number] by [facility] 07/30/19 0406Critical results verified and read back by Nurse? Y MEAN PLATELET VOLUME (test code = MPV) 13.0 fL 6.7-11.0 H IMMATURE GRANULOCYTE % (test code = IG%) 3.1 % 0.0-5.0 N NUCLEATED RBC % (test code = NRBC%) 0.2 % 0-0 H NEUTROPHIL # (test code = NT#) 5.96 K/mm3 1.8-7.7 N IMMATURE GRANULOCYTE # (test code = IG#) 0.26 x10 3/uL 0-0.03 H LYMPHOCYTE # (test code = LY#) 1.06 K/mm3 1.0-5.0 N MONOCYTE # (test code = MO#) 0.92 K/mm3 0-0.8 H EOSINOPHIL # (test code = EO#) 0.05 K/mm3 0.0-0.5 N BASOPHIL # (test code = BA#) 0.03 K/mm3 0.0-0.2 N NUCLEATED RBC # (test code = NRBC#) 0.02 K/mm3 0.0-0.1 N MANUAL DIFF REQUIRED (test code = MDIFF) YES STAIN ACCEPTABILITY (test code = STN ACCEPTABLE) TOTAL CELLS COUNTED (test code = TCC) #CELLS SEGMENTED NEUTROPHILS (test code = SEG) % 39-69 LYMPHOCYTE (test code = LYMPH) % 25-55 MONOCYTE (test code = MON) % 0-10 EOSINOPHIL (test code = EOS) % 0.0-5.0 CABOT RINGS (test code = CAB) MORPHOLOGY COMMENT (test code = MOC) PLATELET ESTIMATE (test code = PLTEST) PLATELET MORPHOLOGY (test code = PLTMORPH) CBC W/MANUAL [id number] 04:07:00* Test Item Value Reference Range Interpretation Comments WHITE BLOOD CELL (test code = WBC) 8.3 K/mm3 4.5-12.5 N RED BLOOD CELL (test code = RBC) 3.44 mill/mm3 3.7-5.2 L HEMOGLOBIN (test code = HGB) 12.6 gram/dL 11.5-15.5 HEMATOCRIT (test code = HCT) 36.5 % 36.0-46.0 N MEAN CELL VOLUME (test code = MCV) 106.1 fL 80-98 H MEAN CELL HGB (test code = MCH) 36.6 picogram 27.0-33.0 H MEAN CELL HGB CONCETRATION (test code = MCHC) 34.5 gram/dL 33.0-36. 0 N RED CELL DISTRIBUTION WIDTH (test code = RDW) 16.4 % 11.6-16. 2 H RED CELL DISTRIBUTION WIDTH SD (test code = RDW-SD) 63.7 fL 37 .0-51.0 H PLATELET COUNT (test code = PLT) 34 K/mm3 150-450 LL Results called [id number] by [facility] 07/30/19 0406Critical results verified and read back by Nurse? Y MEAN PLATELET VOLUME (test code = MPV) 13.0 fL 6.7-11.0 H IMMATURE GRANULOCYTE % (test code = IG%) 3.1 % 0.0-5.0 N NUCLEATED RBC % (test code = NRBC%) 0.2 % 0-0 H NEUTROPHIL # (test code = NT#) 5.96 K/mm3 1.8-7.7 N IMMATURE GRANULOCYTE # (test code = IG#) 0.26 x10 3/uL 0-0.03 H LYMPHOCYTE # (test code = LY#) 1.06 K/mm3 1.0-5.0 N MONOCYTE # (test code = MO#) 0.92 K/mm3 0-0.8 H EOSINOPHIL # (test code = EO#) 0.05 K/mm3 0.0-0.5 N BASOPHIL # (test code = BA#) 0.03 K/mm3 0.0-0.2 N NUCLEATED RBC # (test code = NRBC#) 0.02 K/mm3 0.0-0.1 N MANUAL DIFF REQUIRED (test code = MDIFF) YES STAIN ACCEPTABILITY (test code = STN ACCEPTABLE) TOTAL CELLS COUNTED (test code = TCC) #CELLS SEGMENTED NEUTROPHILS (test code = SEG) % 39-69 LYMPHOCYTE (test code = LYMPH) % 25-55 MONOCYTE (test code = MON) % 0-10 EOSINOPHIL (test code = EOS) % 0.0-5.0 MORPHOLOGY COMMENT (test code = MOC) PLATELET ESTIMATE (test code = PLTEST) PLATELET MORPHOLOGY (test code = PLTMORPH) CBC W/MANUAL [id number] 04:07:00* Test Item Value Reference Range Interpretation Comments WHITE BLOOD CELL (test code = WBC) 8.3 K/mm3 4.5-12.5 N RED BLOOD CELL (test code = RBC) 3.44 mill/mm3 3.7-5.2 L HEMOGLOBIN (test code = HGB) 12.6 gram/dL 11.5-15.5 HEMATOCRIT (test code = HCT) 36.5 % 36.0-46.0 N MEAN CELL VOLUME (test code = MCV) 106.1 fL 80-98 H MEAN CELL HGB (test code = MCH) 36.6 picogram 27.0-33.0 H MEAN CELL HGB CONCETRATION (test code = MCHC) 34.5 gram/dL 33.0-36. 0 N RED CELL DISTRIBUTION WIDTH (test code = RDW) 16.4 % 11.6-16. 2 H RED CELL DISTRIBUTION WIDTH SD (test code = RDW-SD) 63.7 fL 37 .0-51.0 H PLATELET COUNT (test code = PLT) 34 K/mm3 150-450 LL Results called [id number] by [facility] 07/30/19 0406Critical results verified and read back by Nurse? Y MEAN PLATELET VOLUME (test code = MPV) 13.0 fL 6.7-11.0 H IMMATURE GRANULOCYTE % (test code = IG%) 3.1 % 0.0-5.0 N NUCLEATED RBC % (test code = NRBC%) 0.2 % 0-0 H NEUTROPHIL # (test code = NT#) 5.96 K/mm3 1.8-7.7 N IMMATURE GRANULOCYTE # (test code = IG#) 0.26 x10 3/uL 0-0.03 H LYMPHOCYTE # (test code = LY#) 1.06 K/mm3 1.0-5.0 N MONOCYTE # (test code = MO#) 0.92 K/mm3 0-0.8 H EOSINOPHIL # (test code = EO#) 0.05 K/mm3 0.0-0.5 N BASOPHIL # (test code = BA#) 0.03 K/mm3 0.0-0.2 N NUCLEATED RBC # (test code = NRBC#) 0.02 K/mm3 0.0-0.1 N MANUAL DIFF REQUIRED (test code = MDIFF) YES STAIN ACCEPTABILITY (test code = STN ACCEPTABLE) TOTAL CELLS COUNTED (test code = TCC) #CELLS SEGMENTED NEUTROPHILS (test code = SEG) % 39-69 LYMPHOCYTE (test code = LYMPH) % 25-55 MONOCYTE (test code = MON) % 0-10 MORPHOLOGY COMMENT (test code = MOC) PLATELET ESTIMATE (test code = PLTEST) PLATELET MORPHOLOGY (test code = PLTMORPH) CBC W/MANUAL [id number] 04:07:00* Test Item Value Reference Range Interpretation Comments WHITE BLOOD CELL (test code = WBC) 8.3 K/mm3 4.5-12.5 N RED BLOOD CELL (test code = RBC) 3.44 mill/mm3 3.7-5.2 L HEMOGLOBIN (test code = HGB) 12.6 gram/dL 11.5-15.5 HEMATOCRIT (test code = HCT) 36.5 % 36.0-46.0 N MEAN CELL VOLUME (test code = MCV) 106.1 fL 80-98 H MEAN CELL HGB (test code = MCH) 36.6 picogram 27.0-33.0 H MEAN CELL HGB CONCETRATION (test code = MCHC) 34.5 gram/dL 33.0-36. 0 N RED CELL DISTRIBUTION WIDTH (test code = RDW) 16.4 % 11.6-16. 2 H RED CELL DISTRIBUTION WIDTH SD (test code = RDW-SD) 63.7 fL 37 .0-51.0 H PLATELET COUNT (test code = PLT) 34 K/mm3 150-450 LL Results called [id number] by ANJALI 07/30/19 [id number] results verified and read back by Nurse? Y MEAN PLATELET VOLUME (test code = MPV) 13.0 fL 6.7-11.0 H IMMATURE GRANULOCYTE % (test code = IG%) 3.1 % 0.0-5.0 N NUCLEATED RBC % (test code = NRBC%) 0.2 % 0-0 H NEUTROPHIL # (test code = NT#) 5.96 K/mm3 1.8-7.7 N IMMATURE GRANULOCYTE # (test code = IG#) 0.26 x10 3/uL 0-0.03 H LYMPHOCYTE # (test code = LY#) 1.06 K/mm3 1.0-5.0 N MONOCYTE # (test code = MO#) 0.92 K/mm3 0-0.8 H EOSINOPHIL # (test code = EO#) 0.05 K/mm3 0.0-0.5 N BASOPHIL # (test code = BA#) 0.03 K/mm3 0.0-0.2 N NUCLEATED RBC # (test code = NRBC#) 0.02 K/mm3 0.0-0.1 N MANUAL DIFF REQUIRED (test code = MDIFF) YES STAIN ACCEPTABILITY (test code = STN ACCEPTABLE) TOTAL CELLS COUNTED (test code = TCC) #CELLS SEGMENTED NEUTROPHILS (test code = SEG) % 39-69 LYMPHOCYTE (test code = LYMPH) % 25-55 MONOCYTE (test code = MON) % 0-10 EOSINOPHIL (test code = EOS) % 0.0-5.0 CABOT RINGS (test code = CAB) MORPHOLOGY COMMENT (test code = MOC) PLATELET ESTIMATE (test code = PLTEST) PLATELET MORPHOLOGY (test code = PLTMORPH) [id number] 14:27:00* Test Item Value Reference Range Interpretation Comments PHOSPHORUS (test code = PHOS) 2.4 mg/dL 2.5-4.9 L [id number] 14:27:00* Test Item Value Reference Range Interpretation Comments MAGNESIUM (test code = MAG) 1.2 mg/dL 1.8-2.4 L CALCIUM [id number] 14:27:00* Test Item Value Reference Range Interpretation Comments CALCIUM IONIZED (test code = ERICH) 1.35 mmol/L 1.12-1.32 H BASIC METABOLIC [id number] 14:22:00* Test Item Value Reference Range Interpretation Comments SODIUM (test code = NA) 143 mmol/L 136-145 N POTASSIUM (test code = K) 4.2 mmol/L 3.5-5.1 N CHLORIDE (test code = CL) 110.0 mmol/L 98-107 H CARBON DIOXIDE (test code = CO2) 30.0 mmol/L 21-32 N ANION GAP (test code = GAP) 7.2 10-20 L GLUCOSE (test code = GLU) 166 mg/dL 74-106 H BLOOD UREA NITROGEN (test code = BUN) 17 mg/dL 7-18 N GLOMERULAR FILTRATION RATE (test code = GFR) > 60 mL/min >=60 Estimated GFR by using Modified MDRD formula.Chronic kidney disease is defined as either kidney damageor GFR <60 mL/min/1.73 m2 for >3 months. CREATININE (test code = CREAT) 0.70 mg/dL 0.55-1.02 N Note change in reference range due to change in reagent. BUN/CREATININE RATIO (test code = BUN/CREA) 25.8 10-20 H CALCIUM (test code = CA) 8.8 mg/dL 8.5-10.1 N [id number] 14:22:00* Test Item Value Reference Range Interpretation Comments PHOSPHORUS (test code = PHOS) 2.4 mg/dL 2.5-4.9 L [id number] 14:22:00* Test Item Value Reference Range Interpretation Comments MAGNESIUM (test code = MAG) 1.2 mg/dL 1.8-2.4 L CALCIUM [id number] 14:22:00* Test Item Value Reference Range Interpretation Comments CALCIUM IONIZED (test code = ERICH) mmol/L 1.12-1.32 BASIC METABOLIC [id number] 14:19:00* Test Item Value Reference Range Interpretation Comments SODIUM (test code = NA) 143 mmol/L 136-145 N POTASSIUM (test code = K) 4.2 mmol/L 3.5-5.1 N CHLORIDE (test code = CL) 110.0 mmol/L 98-107 H CARBON DIOXIDE (test code = CO2) mmol/L 21-32 ANION GAP (test code = GAP) 10-20 GLUCOSE (test code = GLU) mg/dL 74-106 BLOOD UREA NITROGEN (test code = BUN) mg/dL 7-18 GLOMERULAR FILTRATION RATE (test code = GFR) mL/min >=60 CREATININE (test code = CREAT) mg/dL 0.55-1.02 BUN/CREATININE RATIO (test code = BUN/CREA) 10-20 CALCIUM (test code = CA) mg/dL 8.5-10.1 [id number] 14:19:00* Test Item Value Reference Range Interpretation Comments PHOSPHORUS (test code = PHOS) mg/dL 2.5-4.9 [id number] 14:19:00* Test Item Value Reference Range Interpretation Comments MAGNESIUM (test code = MAG) 1.2 mg/dL 1.8-2.4 L CALCIUM [id number] 14:19:00* Test Item Value Reference Range Interpretation Comments CALCIUM IONIZED (test code = ERICH) mmol/L 1.12-1.32 CBC W/AUTO [id number] 07:13:00* Test Item Value Reference Range Interpretation Comments WHITE BLOOD CELL (test code = WBC) 4.8 K/mm3 4.5-12.5 N RED BLOOD CELL (test code = RBC) 2.77 mill/mm3 3.7-5.2 L HEMOGLOBIN (test code = HGB) 8.2 gram/dL 11.5-15.5 L HEMATOCRIT (test code = HCT) 26.0 % 36.0-46.0 L MEAN CELL VOLUME (test code = MCV) 93.9 fL 80-98 N MEAN CELL HGB (test code = MCH) 29.6 picogram 27.0-33.0 N MEAN CELL HGB CONCETRATION (test code = MCHC) 31.5 gram/dL 33.0-36. 0 L RED CELL DISTRIBUTION WIDTH (test code = RDW) 11.9 % 11.6-16. 2 N RED CELL DISTRIBUTION WIDTH SD (test code = RDW-SD) 41.8 fL 37 .0-51.0 N PLATELET COUNT (test code = PLT) 27 K/mm3 150-450 LL Results called [id number] by [email or web address] 07/29/19 0711Critical results verified and read back by Nurse? Y NEUTROPHIL % (test code = NT%) 74.2 % 39.0-69.0 H IMMATURE GRANULOCYTE % (test code = IG%) 0.2 % 0.0-5.0 N LYMPHOCYTE % (test code = LY%) 17.1 % 25.0-55.0 L MONOCYTE % (test code = MO%) 5.2 % 0.0-10.0 N EOSINOPHIL % (test code = EO%) 2.9 % 0.0-5.0 N BASOPHIL % (test code = BA%) 0.4 % 0.0-1.0 N NUCLEATED RBC % (test code = NRBC%) 0.0 % 0-0 N NEUTROPHIL # (test code = NT#) 3.60 K/mm3 1.8-7.7 N IMMATURE GRANULOCYTE # (test code = IG#) 0.01 x10 3/uL 0-0.03 N LYMPHOCYTE # (test code = LY#) 0.83 K/mm3 1.0-5.0 L MONOCYTE # (test code = MO#) 0.25 K/mm3 0-0.8 N EOSINOPHIL # (test code = EO#) 0.14 K/mm3 0.0-0.5 N BASOPHIL # (test code = BA#) 0.02 K/mm3 0.0-0.2 N MANUAL DIFF REQUIRED (test code = MDIFF) NO, ONLY SCAN NEEDED DIFFERENTIAL [id number] 07:13:00* Test Item Value Reference Range Interpretation Comments STAIN ACCEPTABILITY (test code = STN ACCEPTABLE) STAIN ACCEPTABLE MORPHOLOGY COMMENT (test code = MOC) NORMAL PLATELET ESTIMATE (test code = PLTEST) DECREASED PLATELET MORPHOLOGY (test code = PLTMORPH) NORMAL CBC W/AUTO [id number] 07:12:00* Test Item Value Reference Range Interpretation Comments WHITE BLOOD CELL (test code = WBC) 4.8 K/mm3 4.5-12.5 N RED BLOOD CELL (test code = RBC) 2.77 mill/mm3 3.7-5.2 L HEMOGLOBIN (test code = HGB) 8.2 gram/dL 11.5-15.5 L HEMATOCRIT (test code = HCT) 26.0 % 36.0-46.0 L MEAN CELL VOLUME (test code = MCV) 93.9 fL 80-98 N MEAN CELL HGB (test code = MCH) 29.6 picogram 27.0-33.0 N MEAN CELL HGB CONCETRATION (test code = MCHC) 31.5 gram/dL 33.0-36. 0 L RED CELL DISTRIBUTION WIDTH (test code = RDW) 11.9 % 11.6-16. 2 N RED CELL DISTRIBUTION WIDTH SD (test code = RDW-SD) 41.8 fL 37 .0-51.0 N PLATELET COUNT (test code = PLT) 27 K/mm3 150-450 LL Results called [id number] by ANJALI 07/29/19 0711Critical results verified and read back by Nurse? Y NEUTROPHIL % (test code = NT%) 74.2 % 39.0-69.0 H IMMATURE GRANULOCYTE % (test code = IG%) 0.2 % 0.0-5.0 N LYMPHOCYTE % (test code = LY%) 17.1 % 25.0-55.0 L MONOCYTE % (test code = MO%) 5.2 % 0.0-10.0 N EOSINOPHIL % (test code = EO%) 2.9 % 0.0-5.0 N BASOPHIL % (test code = BA%) 0.4 % 0.0-1.0 N NUCLEATED RBC % (test code = NRBC%) 0.0 % 0-0 N NEUTROPHIL # (test code = NT#) 3.60 K/mm3 1.8-7.7 N IMMATURE GRANULOCYTE # (test code = IG#) 0.01 x10 3/uL 0-0.03 N LYMPHOCYTE # (test code = LY#) 0.83 K/mm3 1.0-5.0 L MONOCYTE # (test code = MO#) 0.25 K/mm3 0-0.8 N EOSINOPHIL # (test code = EO#) 0.14 K/mm3 0.0-0.5 N BASOPHIL # (test code = BA#) 0.02 K/mm3 0.0-0.2 N MANUAL DIFF REQUIRED (test code = MDIFF) NO, ONLY SCAN NEEDED DIFFERENTIAL [id number] 07:12:00* Test Item Value Reference Range Interpretation Comments STAIN ACCEPTABILITY (test code = STN ACCEPTABLE) CABOT RINGS (test code = CAB) MORPHOLOGY COMMENT (test code = MOC) PLATELET ESTIMATE (test code = PLTEST) PLATELET MORPHOLOGY (test code = PLTMORPH) CBC W/AUTO [id number] 07:12:00* Test Item Value Reference Range Interpretation Comments WHITE BLOOD CELL (test code = WBC) 4.8 K/mm3 4.5-12.5 N RED BLOOD CELL (test code = RBC) 2.77 mill/mm3 3.7-5.2 L HEMOGLOBIN (test code = HGB) 8.2 gram/dL 11.5-15.5 L HEMATOCRIT (test code = HCT) 26.0 % 36.0-46.0 L MEAN CELL VOLUME (test code = MCV) 93.9 fL 80-98 N MEAN CELL HGB (test code = MCH) 29.6 picogram 27.0-33.0 N MEAN CELL HGB CONCETRATION (test code = MCHC) 31.5 gram/dL 33.0-36. 0 L RED CELL DISTRIBUTION WIDTH (test code = RDW) 11.9 % 11.6-16. 2 N RED CELL DISTRIBUTION WIDTH SD (test code = RDW-SD) 41.8 fL 37 .0-51.0 N PLATELET COUNT (test code = PLT) 27 K/mm3 150-450 LL Results called [id number] by V.LAB.MANDI 07/29/19 0711Critical results verified and read back by Nurse? Y NEUTROPHIL % (test code = NT%) 74.2 % 39.0-69.0 H IMMATURE GRANULOCYTE % (test code = IG%) 0.2 % 0.0-5.0 N LYMPHOCYTE % (test code = LY%) 17.1 % 25.0-55.0 L MONOCYTE % (test code = MO%) 5.2 % 0.0-10.0 N EOSINOPHIL % (test code = EO%) 2.9 % 0.0-5.0 N BASOPHIL % (test code = BA%) 0.4 % 0.0-1.0 N NUCLEATED RBC % (test code = NRBC%) 0.0 % 0-0 N NEUTROPHIL # (test code = NT#) 3.60 K/mm3 1.8-7.7 N IMMATURE GRANULOCYTE # (test code = IG#) 0.01 x10 3/uL 0-0.03 N LYMPHOCYTE # (test code = LY#) 0.83 K/mm3 1.0-5.0 L MONOCYTE # (test code = MO#) 0.25 K/mm3 0-0.8 N EOSINOPHIL # (test code = EO#) 0.14 K/mm3 0.0-0.5 N BASOPHIL # (test code = BA#) 0.02 K/mm3 0.0-0.2 N MANUAL DIFF REQUIRED (test code = MDIFF) NO, ONLY SCAN NEEDED DIFFERENTIAL [id number] 07:12:00* Test Item Value Reference Range Interpretation Comments STAIN ACCEPTABILITY (test code = STN ACCEPTABLE) CABOT RINGS (test code = CAB) MORPHOLOGY COMMENT (test code = MOC) PLATELET ESTIMATE (test code = PLTEST) PLATELET MORPHOLOGY (test code = PLTMORPH) CBC W/AUTO [id number] 07:12:00* Test Item Value Reference Range Interpretation Comments WHITE BLOOD CELL (test code = WBC) 4.8 K/mm3 4.5-12.5 N RED BLOOD CELL (test code = RBC) 2.77 mill/mm3 3.7-5.2 L HEMOGLOBIN (test code = HGB) 8.2 gram/dL 11.5-15.5 L HEMATOCRIT (test code = HCT) 26.0 % 36.0-46.0 L MEAN CELL VOLUME (test code = MCV) 93.9 fL 80-98 N MEAN CELL HGB (test code = MCH) 29.6 picogram 27.0-33.0 N MEAN CELL HGB CONCETRATION (test code = MCHC) 31.5 gram/dL 33.0-36. 0 L RED CELL DISTRIBUTION WIDTH (test code = RDW) 11.9 % 11.6-16. 2 N RED CELL DISTRIBUTION WIDTH SD (test code = RDW-SD) 41.8 fL 37 .0-51.0 N PLATELET COUNT (test code = PLT) 27 K/mm3 150-450 LL Results called [id number] by FERNANDO 07/29/19 0711Critical results verified and read back by Nurse? Y NEUTROPHIL % (test code = NT%) 74.2 % 39.0-69.0 H IMMATURE GRANULOCYTE % (test code = IG%) 0.2 % 0.0-5.0 N LYMPHOCYTE % (test code = LY%) 17.1 % 25.0-55.0 L MONOCYTE % (test code = MO%) 5.2 % 0.0-10.0 N EOSINOPHIL % (test code = EO%) 2.9 % 0.0-5.0 N BASOPHIL % (test code = BA%) 0.4 % 0.0-1.0 N NUCLEATED RBC % (test code = NRBC%) 0.0 % 0-0 N NEUTROPHIL # (test code = NT#) 3.60 K/mm3 1.8-7.7 N IMMATURE GRANULOCYTE # (test code = IG#) 0.01 x10 3/uL 0-0.03 N LYMPHOCYTE # (test code = LY#) 0.83 K/mm3 1.0-5.0 L MONOCYTE # (test code = MO#) 0.25 K/mm3 0-0.8 N EOSINOPHIL # (test code = EO#) 0.14 K/mm3 0.0-0.5 N BASOPHIL # (test code = BA#) 0.02 K/mm3 0.0-0.2 N MANUAL DIFF REQUIRED (test code = MDIFF) NO, ONLY SCAN NEEDED DIFFERENTIAL [id number] 07:12:00* Test Item Value Reference Range Interpretation Comments STAIN ACCEPTABILITY (test code = STN ACCEPTABLE) MORPHOLOGY COMMENT (test code = MOC) PLATELET ESTIMATE (test code = PLTEST) PLATELET MORPHOLOGY (test code = PLTMORPH) CBC W/AUTO [id number] 07:12:00* Test Item Value Reference Range Interpretation Comments WHITE BLOOD CELL (test code = WBC) 4.8 K/mm3 4.5-12.5 N RED BLOOD CELL (test code = RBC) 2.77 mill/mm3 3.7-5.2 L HEMOGLOBIN (test code = HGB) 8.2 gram/dL 11.5-15.5 L HEMATOCRIT (test code = HCT) 26.0 % 36.0-46.0 L MEAN CELL VOLUME (test code = MCV) 93.9 fL 80-98 N MEAN CELL HGB (test code = MCH) 29.6 picogram 27.0-33.0 N MEAN CELL HGB CONCETRATION (test code = MCHC) 31.5 gram/dL 33.0-36. 0 L RED CELL DISTRIBUTION WIDTH (test code = RDW) 11.9 % 11.6-16. 2 N RED CELL DISTRIBUTION WIDTH SD (test code = RDW-SD) 41.8 fL 37 .0-51.0 N PLATELET COUNT (test code = PLT) 27 K/mm3 150-450 LL Results called [id number] by FERNANDO 07/29/19 0711Critical results verified and read back by Nurse? Y NEUTROPHIL % (test code = NT%) 74.2 % 39.0-69.0 H IMMATURE GRANULOCYTE % (test code = IG%) 0.2 % 0.0-5.0 N LYMPHOCYTE % (test code = LY%) 17.1 % 25.0-55.0 L MONOCYTE % (test code = MO%) 5.2 % 0.0-10.0 N EOSINOPHIL % (test code = EO%) 2.9 % 0.0-5.0 N BASOPHIL % (test code = BA%) 0.4 % 0.0-1.0 N NUCLEATED RBC % (test code = NRBC%) 0.0 % 0-0 N NEUTROPHIL # (test code = NT#) 3.60 K/mm3 1.8-7.7 N IMMATURE GRANULOCYTE # (test code = IG#) 0.01 x10 3/uL 0-0.03 N LYMPHOCYTE # (test code = LY#) 0.83 K/mm3 1.0-5.0 L MONOCYTE # (test code = MO#) 0.25 K/mm3 0-0.8 N EOSINOPHIL # (test code = EO#) 0.14 K/mm3 0.0-0.5 N BASOPHIL # (test code = BA#) 0.02 K/mm3 0.0-0.2 N MANUAL DIFF REQUIRED (test code = MDIFF) NO, ONLY SCAN NEEDED DIFFERENTIAL [id number] 07:12:00* Test Item Value Reference Range Interpretation Comments STAIN ACCEPTABILITY (test code = STN ACCEPTABLE) CABOT RINGS (test code = CAB) MORPHOLOGY COMMENT (test code = MOC) PLATELET ESTIMATE (test code = PLTEST) PLATELET MORPHOLOGY (test code = PLTMORPH) BASIC METABOLIC [id number] 05:42:00* Test Item Value Reference Range Interpretation Comments SODIUM (test code = NA) 147 mmol/L 136-145 H POTASSIUM (test code = K) 3.3 mmol/L 3.5-5.1 L CHLORIDE (test code = CL) 113.0 mmol/L 98-107 H CARBON DIOXIDE (test code = CO2) 27.0 mmol/L 21-32 N ANION GAP (test code = GAP) 10.3 10-20 N GLUCOSE (test code = GLU) 86 mg/dL 74-106 N BLOOD UREA NITROGEN (test code = BUN) 20 mg/dL 7-18 H GLOMERULAR FILTRATION RATE (test code = GFR) > 60 mL/min >=60 Estimated GFR by using Modified MDRD formula.Chronic kidney disease is defined as either kidney damageor GFR <60 mL/min/1.73 m2 for >3 months. CREATININE (test code = CREAT) 0.60 mg/dL 0.55-1.02 N Note change in reference range due to change in reagent. BUN/CREATININE RATIO (test code = BUN/CREA) 33.7 10-20 H CALCIUM (test code = CA) 8.8 mg/dL 8.5-10.1 N - CT CHEST W/O [id number] 01:50:00 Name: MARCELA CUMMINGS [facility] : 1950 Age/S: 69 / F [address] [facility] Unit #: [id number] Loc: [place] M [place] [address] Phys: Soledad Damian MD Acct: [id number] Dis Date: Status: ADM IN PHONE #: [phone] Exam Date: 07/29/2019 0030 FAX #: [phone] Reason: respiratory failure EXAMS: CPT CODE: [id number] CT CHEST W/O CONTRAST 06306 EXAM: CHEST CT WITHOUT INTRAVENOUS CONTRAST CLINICAL INFORMATION: Respiratory failure TECHNIQUE: A volumetric CT acquisition of the chest was obtained from the thoracic inlet to the upper abdomen, without the administration of intravenous contrast. Comparison: None FINDINGS: Lines and Tubes: None Mediastinum and Vasculature: There are no intrathoracic lymph nodes meeting CT criteria for enlargement. There is no cardiac chamber enlargement. The aorta and pulmonary artery are normal in size. A tracheostomy is tube is seen with prominent thic kening circumferentially at the level of the trachea, a definite collectio n is not seen; however evaluation is limited in the absence of IV co ntrast. Diffuse prominent esophageal thickening is noted throughout. Airways/Pleura/Lungs: There is a wedge-shaped dense opacity seen measuring 3 cm x 2.8 cm within the posterior aspect of the right lower lo be. Additional consolidation is seen within the right lung base and a den se right middle lobe opacity measuring up to 2.6 cm is seen within the rig ht middle lobe. These findings may reflect aspiration, consolidative pneu monia, infarct, or small hemorrhage. Bones and Soft tissues: There are no suspicious osseous lesions. The overlying soft tissues are unremar kable. Advanced arthropathy of bilateral shoulders is noted. Abdomen: The visualized unenhanced portions of the upper abdom en is unremarkable with the exception of a G-tube and nonspecific distenti on of the gallbladder. Steatosis is also seen.. IMPRESSIO N: 1.A tracheostomy is tube is seen with prominent thickening ci rcumferentially at the level of the trachea, a definite collection is no t seen; however evaluation is limited in the absence of IV contrast. PAGE 1 Signed Report (CONTINUED) Name: MARCELA CUMMINGS [facility] : 1950 Age/S: 69 / F [address] Unit #: [id number] Loc: LU[place] M [place] [address] Phys: Qasim Damian MD Acct: [id number] Dis Date: Status: ADM IN PHONE #: [phone] Exam Date: 07/29/2019 0030 FAX #: Reason: respiratory failure EXAMS: CPT CODE: [id number] CT CHEST W/O CO NTRAST 16930 <Continued> 2.There is a wedge-shaped dense opacity seen measuring 3 cm x 2.8 cm within the posterior aspect of the right lower lobe. Additional consolidation is seen within the right lung base and a dense right middle lobe opacity measuring up to 2.6 cm is seen within the right middle lobe. These findings may reflect aspiration, consolidative pneumonia, infarct, or small hemorrhage 2. Additional findings as detailed above at 0150 Reported and signed by: Concepcion Mercado M.D. CC: Ilan Stein; Soledad Damian MD Technologist:NATHANIEL GARCIA CTDI: DLP: Trnscb Date/Time: 07/29/2019 (0150) tCHERRY [email or web address] Orig Print D/T: S: 07/29/2019 (0153) PAGE 2 Signed Report - CT CHEST W/O [id number] 01:50:00 Name: MOJAGN CUMMINGS [facility] : 1950 Age/S: 69 / F [address] Unit #: [id number] Loc: [place] M [place] [address] Phys: Soledad Damian MD Acct: [id number] Dis Date: 08/06/2019 Status: DIS IN PHONE #: [phone] Exam Date: 07/29/2019 0030 FAX #: [phone] Reason: respiratory failure EXAMS: CPT CODE: [id number] CT CHEST W/O CONTRAST 48417 EXAM: CHEST CT WITHOUT INTRAVENOUS CONTRAST CLINICAL INFORMATION: Respiratory failure TECHNIQUE: A volumetric CT acquisition of the chest was obtained from the thoracic inlet to the upper abdomen, without the administration of intravenous contrast. Comparison: None FINDINGS: Lines and Tubes: None Mediastinum and Vasculature: There are no intrathoracic lymph nodes meeting CT criteria for enlargement. There is no cardiac chamber enlargement. The aorta and pulmonary artery are normal in size. A tracheostomy is tube is seen with prominent thickening circumferentially at the level of the trachea, a definite collection is not seen; however evaluation is limited in the absence of IV contrast. Diffuse prominent esophageal thickening is noted throughout. Airways/Pleura/Lungs: There is a wedge-shaped dense opacity seen measuring 3 cm x 2.8 cm within the posterior aspect of the right lower lobe. Additional consolidation is seen within the right lung base and a dense right middle lobe opacity measuring up to 2.6 cm is seen within the right middle lobe. These findings may reflect aspiration, consolidative pneu monia, infarct, or small hemorrhage. Bones and Soft tissues: There are no suspicious osseous lesions. The overlying soft tissues are unremar kable. Advanced arthropathy of bilateral shoulders is noted. Abdomen: The visualized unenhanced portions of the upper abdom en is unremarkable with the exception of a G-tube and nonspecific distenti on of the gallbladder. Steatosis is also seen.. IMPRESSIO N: 1.A tracheostomy is tube is seen with prominent thickening ci rcumferentially at the level of the trachea, a definite collection is no t seen; however evaluation is limited in the absence of IV contrast. PAGE 1 Signed Report (CONTINUED) Name: MOJGAN CUMMINGS [facility] : 1950 Age/S: 69 / F [address] [facility] Unit #: [id number] Loc: AsadLUIS M [address] Phys: Qasim Damian MD Acct: [id number] Dis Date: 08/06/2019 Status: DIS IN PHONE #: Exam Date: 07/29/2019 0030 FAX #: Reason: respiratory failure EXAMS: CPT CODE: [id number] CT CHEST W/O CO NTRAST 00037 <Continued> 2.There is a wedge-shaped dense opacity seen measuring 3 cm x 2.8 cm within the posterior aspect of the right lower lobe. Additional consolidation is seen within the right lung base and a dense right middle lobe opacity measuring up to 2.6 cm is seen within the right middle lobe. These findings may reflect aspiration, consolidative pneumonia, infarct, or small hemorrhage 2. Additional findings as detailed above at 0150 Reported and signed by: Concepcion Mercado M.D. CC: Ilan Stein; Soledad Damian MD Technologist:NATHANIEL GARCIA CTDI: DLP: Trnscb Date/Time: 07/29/2019 (149) Therese [email or web address] Orig Print D/T: S: 07/29/2019 (0153) PAGE 2 Signed Report URINALYSIS [id number] 00:02:00* Test Item Value Reference Range Interpretation Comments UA COLOR (test code = COLU) YELLOW YELLOW UA APPEARANCE (test code = APPU) TURBID CLEAR A UA GLUCOSE DIPSTICK (test code = DGLUU) NEGATIVE mg/dL NEGATIVE UA BILIRUBIN DIPSTICK (test code = BILU) NEGATIVE mg/dL NEGATIVE UA KETONE DIPSTICK (test code = KETU) NEGATIVE mg/dL NEGATIVE UA SPECIFIC GRAVITY (test code = SGU) 1.018 1.001-1.035 UA BLOOD DIPSTICK (test code = ADEOLA) 1.0 mg/dL (3+) mg/dL NEGATIVE A UA PH DIPSTICK (test code = RANDELL) 5.0 5.0-8.0 UA PROTEIN DIPSTICK (test code = PROU) 20 (Trace) mg/dL NEGATIVE A UA UROBILINIOGEN DIPSTICK (test code = URO) Normal mg/dL NEGATIVE UA NITRITE DIPSTICK (test code = RAFIA) NEGATIVE NEGATIVE UA LEUKOCYTE ESTERASE W REFLEX (test code = LEUUR) 500 Jimmie/u L (3+) Jimmie/uL NEGATIVE A UA WBC (test code = WBCU) 51-100 per HPF 0-5 A UA RBC (test code = RBCU) 51-100 #/HPF 0-5 UA WBC CLUMPS (test code = WBCUCL) 3-6 /HPF NONE A UA EPITHELIAL CELLS (test code = EPIU) MANY per HPF FEW UA BACTERIA (test code = BACU) MANY #/HPF NONE A UA MUCUS (test code = MUCU) FEW #/LPF FEW Urine Source? Clean CatchURINALYSIS [id number] 23:48:00* Test Item Value Reference Range Interpretation Comments UA COLOR (test code = COLU) YELLOW YELLOW UA APPEARANCE (test code = APPU) TURBID CLEAR A UA GLUCOSE DIPSTICK (test code = DGLUU) NEGATIVE mg/dL NEGATIVE UA BILIRUBIN DIPSTICK (test code = BILU) NEGATIVE mg/dL NEGATIVE UA KETONE DIPSTICK (test code = KETU) NEGATIVE mg/dL NEGATIVE UA SPECIFIC GRAVITY (test code = SGU) 1.018 1.001-1.035 UA BLOOD DIPSTICK (test code = ADEOLA) 1.0 mg/dL (3+) mg/dL NEGATIVE A UA PH DIPSTICK (test code = RANDELL) 5.0 5.0-8.0 UA PROTEIN DIPSTICK (test code = PROU) 20 (Trace) mg/dL NEGATIVE A UA UROBILINIOGEN DIPSTICK (test code = URO) Normal mg/dL NEGATIVE UA NITRITE DIPSTICK (test code = RAFIA) NEGATIVE NEGATIVE UA LEUKOCYTE ESTERASE W REFLEX (test code = LEUUR) 500 Jimmie/u L (3+) Jimmie/uL NEGATIVE A UA WBC (test code = WBCU) per HPF 0-5 UA RBC (test code = RBCU) per HPF 0-5 UA EPITHELIAL CELLS (test code = EPIU) per HPF Few UA BACTERIA (test code = BACU) per HPF NONE Urine Source? Clean CatchCBC W/AUTO [id number] 23:16:00* Test Item Value Reference Range Interpretation Comments WHITE BLOOD CELL (test code = WBC) 6.8 K/mm3 4.5-12.5 N RED BLOOD CELL (test code = RBC) 3.20 mill/mm3 3.7-5.2 L HEMOGLOBIN (test code = HGB) 9.4 gram/dL 11.5-15.5 L HEMATOCRIT (test code = HCT) 30.4 % 36.0-46.0 L MEAN CELL VOLUME (test code = MCV) 95.0 fL 80-98 N MEAN CELL HGB (test code = MCH) 29.4 picogram 27.0-33.0 N MEAN CELL HGB CONCETRATION (test code = MCHC) 30.9 gram/dL 33.0-36. 0 L RED CELL DISTRIBUTION WIDTH (test code = RDW) 11.9 % 11.6-16. 2 N RED CELL DISTRIBUTION WIDTH SD (test code = RDW-SD) 41.2 fL 37 .0-51.0 N PLATELET COUNT (test code = PLT) 28 K/mm3 150-450 LL Results called to [id number] by [email or web address] 07/28/19 2236Critical results verified and read back by Nurse? Y NEUTROPHIL % (test code = NT%) 88.2 % 39.0-69.0 H IMMATURE GRANULOCYTE % (test code = IG%) 0.4 % 0.0-5.0 N LYMPHOCYTE % (test code = LY%) 8.3 % 25.0-55.0 L MONOCYTE % (test code = MO%) 1.8 % 0.0-10.0 N EOSINOPHIL % (test code = EO%) 1.0 % 0.0-5.0 N BASOPHIL % (test code = BA%) 0.3 % 0.0-1.0 N NUCLEATED RBC % (test code = NRBC%) 0.0 % 0-0 N NEUTROPHIL # (test code = NT#) 5.97 K/mm3 1.8-7.7 N IMMATURE GRANULOCYTE # (test code = IG#) 0.03 x10 3/uL 0-0.03 N LYMPHOCYTE # (test code = LY#) 0.56 K/mm3 1.0-5.0 L MONOCYTE # (test code = MO#) 0.12 K/mm3 0-0.8 N EOSINOPHIL # (test code = EO#) 0.07 K/mm3 0.0-0.5 N BASOPHIL # (test code = BA#) 0.02 K/mm3 0.0-0.2 N NUCLEATED RBC # (test code = NRBC#) 0.00 K/mm3 0.0-0.1 N MANUAL DIFF REQUIRED (test code = MDIFF) NO, ONLY SCAN NEEDED DIFFERENTIAL [id number] 23:16:00* Test Item Value Reference Range Interpretation Comments STAIN ACCEPTABILITY (test code = STN ACCEPTABLE) STAIN ACCEPTABLE PLATELET ESTIMATE (test code = PLTEST) DECREASED PLATELET MORPHOLOGY (test code = PLTMORPH) APPEAR LARGE COMPREHENSIVE METABOLIC [id number] 22:52:00* Test Item Value Reference Range Interpretation Comments SODIUM (test code = NA) 146 mmol/L 136-145 H POTASSIUM (test code = K) 3.5 mmol/L 3.5-5.1 N CHLORIDE (test code = CL) 112.0 mmol/L 98-107 H CARBON DIOXIDE (test code = CO2) 28.0 mmol/L 21-32 N ANION GAP (test code = GAP) 9.5 10-20 L GLUCOSE (test code = GLU) 95 mg/dL 74-106 N BLOOD UREA NITROGEN (test code = BUN) 25 mg/dL 7-18 H GLOMERULAR FILTRATION RATE (test code = GFR) > 60 mL/min >=60 Estimated GFR by using Modified MDRD formula.Chronic kidney disease is defined as either kidney damageor GFR <60 mL/min/1.73 m2 for >3 months. CREATININE (test code = CREAT) 0.50 mg/dL 0.55-1.02 L Note change in reference range due to change in reagent. BUN/CREATININE RATIO (test code = BUN/CREA) 48.1 10-20 H TOTAL PROTEIN (test code = PROT) 6.3 gram/dL 6.4-8.2 L ALBUMIN (test code = ALB) 3.3 g/dL 3.4-5.0 L GLOBULIN (test code = GLOB) 3.0 gram/dL 2.7-4.2 N ALBUMIN/GLOBULIN RATIO (test code = A/G) 1.1 0.75-1.50 N CALCIUM (test code = CA) 9.8 mg/dL 8.5-10.1 N BILIRUBIN TOTAL (test code = BILT) 0.30 mg/dL 0.0-1.0 N SGOT/AST (test code = AST) 14 IUnit/L 15-37 L SGPT/ALT (test code = ALT) 14 IUnit/L 12-78 N ALKALINE PHOSPHATASE TOTAL (test code = ALKP) 96 IUnit/L 45-117 N Note change in reference range due to change in reagent. [id number] 22:52:00* Test Item Value Reference Range Interpretation Comments PHOSPHORUS (test code = PHOS) 2.6 mg/dL 2.5-4.9 N [id number] 22:52:00* Test Item Value Reference Range Interpretation Comments LIPASE (test code = LIP) 23 U/L 73.0-393.0 L [id number] 22:52:00* Test Item Value Reference Range Interpretation Comments MAGNESIUM (test code = MAG) 1.3 mg/dL 1.8-2.4 L SERUM [id number] 22:52:00* Test Item Value Reference Range Interpretation Comments SERUM IRON (test code = IRON) 63 ug/dL 50-175 N TOTAL IRON BINDING [id number] 22:52:00* Test Item Value Reference Range Interpretation Comments TOTAL IRON BINDING CAPACITY (test code = TIBC) 176 mcg/dL 250-450 L THYROID PROFILE [id number] 22:52:00* Test Item Value Reference Range Interpretation Comments T3 UPTAKE (test code = T3UP) 37.0 % 30.0-40.0 N T4 (THYROXINE) (test code = T4) 7.0 ug/dL 4.5-13.9 N T7 (FREE THYROXINE INDEX) (test code = T7) 2.59 FTI 1.3-5.1 N THYROID STIMULATING HORMONE (test code = TSH) 0.461 uIU/mL 0.36-3.7 4 N TSH REFERENCE RANGES: EUTHYROID: 0.35 - 4.3 mIU/mL HYPO : > 5.5 mIU/mL HYPER : < 0.35 mIU/mL TOTAL [id number] 22:52:00* Test Item Value Reference Range Interpretation Comments TOTAL T3 (test code = T3) T4 [id number] 22:52:00* Test Item Value Reference Range Interpretation Comments T4 FREE (test code = T4F) 0.85 ng/dL 0.76-1.46 N [id number] 22:52:00* Test Item Value Reference Range Interpretation Comments TROPONIN-I (test code = TROPI) <0.015 ng/mL 0-0.045 N CALCIUM [id number] 22:52:00* Test Item Value Reference Range Interpretation Comments CALCIUM IONIZED (test code = ERICH) 1.44 mmol/L 1.12-1.32 H CBC W/AUTO [id number] 22:36:00* Test Item Value Reference Range Interpretation Comments WHITE BLOOD CELL (test code = WBC) 6.8 K/mm3 4.5-12.5 N RED BLOOD CELL (test code = RBC) 3.20 mill/mm3 3.7-5.2 L HEMOGLOBIN (test code = HGB) 9.4 gram/dL 11.5-15.5 L HEMATOCRIT (test code = HCT) 30.4 % 36.0-46.0 L MEAN CELL VOLUME (test code = MCV) 95.0 fL 80-98 N MEAN CELL HGB (test code = MCH) 29.4 picogram 27.0-33.0 N MEAN CELL HGB CONCETRATION (test code = MCHC) 30.9 gram/dL 33.0-36. 0 L RED CELL DISTRIBUTION WIDTH (test code = RDW) 11.9 % 11.6-16. 2 N RED CELL DISTRIBUTION WIDTH SD (test code = RDW-SD) 41.2 fL 37 .0-51.0 N PLATELET COUNT (test code = PLT) 28 K/mm3 150-450 LL Results called to [id number] by [email or web address] 07/28/19 2236Critical results verified and read back by Nurse? Y NEUTROPHIL % (test code = NT%) 88.2 % 39.0-69.0 H IMMATURE GRANULOCYTE % (test code = IG%) 0.4 % 0.0-5.0 N LYMPHOCYTE % (test code = LY%) 8.3 % 25.0-55.0 L MONOCYTE % (test code = MO%) 1.8 % 0.0-10.0 N EOSINOPHIL % (test code = EO%) 1.0 % 0.0-5.0 N BASOPHIL % (test code = BA%) 0.3 % 0.0-1.0 N NUCLEATED RBC % (test code = NRBC%) 0.0 % 0-0 N NEUTROPHIL # (test code = NT#) 5.97 K/mm3 1.8-7.7 N IMMATURE GRANULOCYTE # (test code = IG#) 0.03 x10 3/uL 0-0.03 N LYMPHOCYTE # (test code = LY#) 0.56 K/mm3 1.0-5.0 L MONOCYTE # (test code = MO#) 0.12 K/mm3 0-0.8 N EOSINOPHIL # (test code = EO#) 0.07 K/mm3 0.0-0.5 N BASOPHIL # (test code = BA#) 0.02 K/mm3 0.0-0.2 N NUCLEATED RBC # (test code = NRBC#) 0.00 K/mm3 0.0-0.1 N MANUAL DIFF REQUIRED (test code = MDIFF) NO, ONLY SCAN NEEDED DIFFERENTIAL [id number] 22:36:00* Test Item Value Reference Range Interpretation Comments STAIN ACCEPTABILITY (test code = STN ACCEPTABLE) CABOT RINGS (test code = CAB) MORPHOLOGY COMMENT (test code = MOC) PLATELET ESTIMATE (test code = PLTEST) PLATELET MORPHOLOGY (test code = PLTMORPH) CBC W/AUTO [id number] 22:36:00* Test Item Value Reference Range Interpretation Comments WHITE BLOOD CELL (test code = WBC) 6.8 K/mm3 4.5-12.5 N RED BLOOD CELL (test code = RBC) 3.20 mill/mm3 3.7-5.2 L HEMOGLOBIN (test code = HGB) 9.4 gram/dL 11.5-15.5 L HEMATOCRIT (test code = HCT) 30.4 % 36.0-46.0 L MEAN CELL VOLUME (test code = MCV) 95.0 fL 80-98 N MEAN CELL HGB (test code = MCH) 29.4 picogram 27.0-33.0 N MEAN CELL HGB CONCETRATION (test code = MCHC) 30.9 gram/dL 33.0-36. 0 L RED CELL DISTRIBUTION WIDTH (test code = RDW) 11.9 % 11.6-16. 2 N RED CELL DISTRIBUTION WIDTH SD (test code = RDW-SD) 41.2 fL 37 .0-51.0 N PLATELET COUNT (test code = PLT) 28 K/mm3 150-450 LL Results called to [id number] by V.[email or web address] 07/28/19 2236Critical results verified and read back by Nurse? Y NEUTROPHIL % (test code = NT%) 88.2 % 39.0-69.0 H IMMATURE GRANULOCYTE % (test code = IG%) 0.4 % 0.0-5.0 N LYMPHOCYTE % (test code = LY%) 8.3 % 25.0-55.0 L MONOCYTE % (test code = MO%) 1.8 % 0.0-10.0 N EOSINOPHIL % (test code = EO%) 1.0 % 0.0-5.0 N BASOPHIL % (test code = BA%) 0.3 % 0.0-1.0 N NUCLEATED RBC % (test code = NRBC%) 0.0 % 0-0 N NEUTROPHIL # (test code = NT#) 5.97 K/mm3 1.8-7.7 N IMMATURE GRANULOCYTE # (test code = IG#) 0.03 x10 3/uL 0-0.03 N LYMPHOCYTE # (test code = LY#) 0.56 K/mm3 1.0-5.0 L MONOCYTE # (test code = MO#) 0.12 K/mm3 0-0.8 N EOSINOPHIL # (test code = EO#) 0.07 K/mm3 0.0-0.5 N BASOPHIL # (test code = BA#) 0.02 K/mm3 0.0-0.2 N NUCLEATED RBC # (test code = NRBC#) 0.00 K/mm3 0.0-0.1 N MANUAL DIFF REQUIRED (test code = MDIFF) NO, ONLY SCAN NEEDED DIFFERENTIAL [id number] 22:36:00* Test Item Value Reference Range Interpretation Comments STAIN ACCEPTABILITY (test code = STN ACCEPTABLE) CABOT RINGS (test code = CAB) MORPHOLOGY COMMENT (test code = MOC) PLATELET ESTIMATE (test code = PLTEST) PLATELET MORPHOLOGY (test code = PLTMORPH) CBC W/AUTO [id number] 22:36:00* Test Item Value Reference Range Interpretation Comments WHITE BLOOD CELL (test code = WBC) 6.8 K/mm3 4.5-12.5 N RED BLOOD CELL (test code = RBC) 3.20 mill/mm3 3.7-5.2 L HEMOGLOBIN (test code = HGB) 9.4 gram/dL 11.5-15.5 L HEMATOCRIT (test code = HCT) 30.4 % 36.0-46.0 L MEAN CELL VOLUME (test code = MCV) 95.0 fL 80-98 N MEAN CELL HGB (test code = MCH) 29.4 picogram 27.0-33.0 N MEAN CELL HGB CONCETRATION (test code = MCHC) 30.9 gram/dL 33.0-36. 0 L RED CELL DISTRIBUTION WIDTH (test code = RDW) 11.9 % 11.6-16. 2 N RED CELL DISTRIBUTION WIDTH SD (test code = RDW-SD) 41.2 fL 37 .0-51.0 N PLATELET COUNT (test code = PLT) 28 K/mm3 150-450 LL Results called to [id number] by [email or web address] 07/28/19 2236Critical results verified and read back by Nurse? Y NEUTROPHIL % (test code = NT%) 88.2 % 39.0-69.0 H IMMATURE GRANULOCYTE % (test code = IG%) 0.4 % 0.0-5.0 N LYMPHOCYTE % (test code = LY%) 8.3 % 25.0-55.0 L MONOCYTE % (test code = MO%) 1.8 % 0.0-10.0 N EOSINOPHIL % (test code = EO%) 1.0 % 0.0-5.0 N BASOPHIL % (test code = BA%) 0.3 % 0.0-1.0 N NUCLEATED RBC % (test code = NRBC%) 0.0 % 0-0 N NEUTROPHIL # (test code = NT#) 5.97 K/mm3 1.8-7.7 N IMMATURE GRANULOCYTE # (test code = IG#) 0.03 x10 3/uL 0-0.03 N LYMPHOCYTE # (test code = LY#) 0.56 K/mm3 1.0-5.0 L MONOCYTE # (test code = MO#) 0.12 K/mm3 0-0.8 N EOSINOPHIL # (test code = EO#) 0.07 K/mm3 0.0-0.5 N BASOPHIL # (test code = BA#) 0.02 K/mm3 0.0-0.2 N NUCLEATED RBC # (test code = NRBC#) 0.00 K/mm3 0.0-0.1 N MANUAL DIFF REQUIRED (test code = MDIFF) NO, ONLY SCAN NEEDED DIFFERENTIAL [id number] 22:36:00* Test Item Value Reference Range Interpretation Comments STAIN ACCEPTABILITY (test code = STN ACCEPTABLE) MORPHOLOGY COMMENT (test code = MOC) PLATELET ESTIMATE (test code = PLTEST) PLATELET MORPHOLOGY (test code = PLTMORPH) CBC W/AUTO [id number] 22:36:00* Test Item Value Reference Range Interpretation Comments WHITE BLOOD CELL (test code = WBC) 6.8 K/mm3 4.5-12.5 N RED BLOOD CELL (test code = RBC) 3.20 mill/mm3 3.7-5.2 L HEMOGLOBIN (test code = HGB) 9.4 gram/dL 11.5-15.5 L HEMATOCRIT (test code = HCT) 30.4 % 36.0-46.0 L MEAN CELL VOLUME (test code = MCV) 95.0 fL 80-98 N MEAN CELL HGB (test code = MCH) 29.4 picogram 27.0-33.0 N MEAN CELL HGB CONCETRATION (test code = MCHC) 30.9 gram/dL 33.0-36. 0 L RED CELL DISTRIBUTION WIDTH (test code = RDW) 11.9 % 11.6-16. 2 N RED CELL DISTRIBUTION WIDTH SD (test code = RDW-SD) 41.2 fL 37 .0-51.0 N PLATELET COUNT (test code = PLT) 28 K/mm3 150-450 LL Results called to [id number] by V.[email or web address] 07/28/19 2236Critical results verified and read back by Nurse? Y NEUTROPHIL % (test code = NT%) 88.2 % 39.0-69.0 H IMMATURE GRANULOCYTE % (test code = IG%) 0.4 % 0.0-5.0 N LYMPHOCYTE % (test code = LY%) 8.3 % 25.0-55.0 L MONOCYTE % (test code = MO%) 1.8 % 0.0-10.0 N EOSINOPHIL % (test code = EO%) 1.0 % 0.0-5.0 N BASOPHIL % (test code = BA%) 0.3 % 0.0-1.0 N NUCLEATED RBC % (test code = NRBC%) 0.0 % 0-0 N NEUTROPHIL # (test code = NT#) 5.97 K/mm3 1.8-7.7 N IMMATURE GRANULOCYTE # (test code = IG#) 0.03 x10 3/uL 0-0.03 N LYMPHOCYTE # (test code = LY#) 0.56 K/mm3 1.0-5.0 L MONOCYTE # (test code = MO#) 0.12 K/mm3 0-0.8 N EOSINOPHIL # (test code = EO#) 0.07 K/mm3 0.0-0.5 N BASOPHIL # (test code = BA#) 0.02 K/mm3 0.0-0.2 N NUCLEATED RBC # (test code = NRBC#) 0.00 K/mm3 0.0-0.1 N MANUAL DIFF REQUIRED (test code = MDIFF) NO, ONLY SCAN NEEDED DIFFERENTIAL [id number] 22:36:00* Test Item Value Reference Range Interpretation Comments STAIN ACCEPTABILITY (test code = STN ACCEPTABLE) CABOT RINGS (test code = CAB) MORPHOLOGY COMMENT (test code = MOC) PLATELET ESTIMATE (test code = PLTEST) PLATELET MORPHOLOGY (test code = PLTMORPH) T3 [id number] 22:32:00* Test Item Value Reference Range Interpretation Comments T3 FREE (test code = T3F) pg/mL B-TYPE NATRIURETIC [id number] 22:32:00* Test Item Value Reference Range Interpretation Comments B-TYPE NATRIURETIC PEPTIDE (test code = BNP) 51.07 pgram/mL 0-100 N [id number] 22:31:00* Test Item Value Reference Range Interpretation Comments GLYCOSYLATED HEMOGLOBIN (HA1C) (test code = GLYHGB) 4.8 % HbA1 4. 8-6.0 N ESTIMATED AVERAGE GLUCOSE (test code = EAG) 91 MG/DL COMPREHENSIVE METABOLIC [id number] 22:30:00* Test Item Value Reference Range Interpretation Comments SODIUM (test code = NA) 146 mmol/L 136-145 H POTASSIUM (test code = K) 3.5 mmol/L 3.5-5.1 N CHLORIDE (test code = CL) 112.0 mmol/L 98-107 H CARBON DIOXIDE (test code = CO2) 28.0 mmol/L 21-32 N ANION GAP (test code = GAP) 9.5 10-20 L GLUCOSE (test code = GLU) 95 mg/dL 74-106 N BLOOD UREA NITROGEN (test code = BUN) 25 mg/dL 7-18 H GLOMERULAR FILTRATION RATE (test code = GFR) > 60 mL/min >=60 Estimated GFR by using Modified MDRD formula.Chronic kidney disease is defined as either kidney damageor GFR <60 mL/min/1.73 m2 for >3 months. CREATININE (test code = CREAT) 0.50 mg/dL 0.55-1.02 L Note change in reference range due to change in reagent. BUN/CREATININE RATIO (test code = BUN/CREA) 48.1 10-20 H TOTAL PROTEIN (test code = PROT) 6.3 gram/dL 6.4-8.2 L ALBUMIN (test code = ALB) 3.3 g/dL 3.4-5.0 L GLOBULIN (test code = GLOB) 3.0 gram/dL 2.7-4.2 N ALBUMIN/GLOBULIN RATIO (test code = A/G) 1.1 0.75-1.50 N CALCIUM (test code = CA) 9.8 mg/dL 8.5-10.1 N BILIRUBIN TOTAL (test code = BILT) 0.30 mg/dL 0.0-1.0 N SGOT/AST (test code = AST) 14 IUnit/L 15-37 L SGPT/ALT (test code = ALT) 14 IUnit/L 12-78 N ALKALINE PHOSPHATASE TOTAL (test code = ALKP) 96 IUnit/L 45-117 N Note change in reference range due to change in reagent. [id number] 22:30:00* Test Item Value Reference Range Interpretation Comments PHOSPHORUS (test code = PHOS) 2.6 mg/dL 2.5-4.9 N [id number] 22:30:00* Test Item Value Reference Range Interpretation Comments LIPASE (test code = LIP) 23 U/L 73.0-393.0 L [id number] 22:30:00* Test Item Value Reference Range Interpretation Comments MAGNESIUM (test code = MAG) 1.3 mg/dL 1.8-2.4 L SERUM [id number] 22:30:00* Test Item Value Reference Range Interpretation Comments SERUM IRON (test code = IRON) 63 ug/dL 50-175 N TOTAL IRON BINDING [id number] 22:30:00* Test Item Value Reference Range Interpretation Comments TOTAL IRON BINDING CAPACITY (test code = TIBC) 176 mcg/dL 250-450 L THYROID PROFILE [id number] 22:30:00* Test Item Value Reference Range Interpretation Comments T3 UPTAKE (test code = T3UP) 37.0 % 30.0-40.0 N T4 (THYROXINE) (test code = T4) 7.0 ug/dL 4.5-13.9 N T7 (FREE THYROXINE INDEX) (test code = T7) 2.59 FTI 1.3-5.1 N THYROID STIMULATING HORMONE (test code = TSH) 0.461 uIU/mL 0.36-3.7 4 N TSH REFERENCE RANGES: EUTHYROID: 0.35 - 4.3 mIU/mL HYPO : > 5.5 mIU/mL HYPER : < 0.35 mIU/mL TOTAL [id number] 22:30:00* Test Item Value Reference Range Interpretation Comments TOTAL T3 (test code = T3) T4 [id number] 22:30:00* Test Item Value Reference Range Interpretation Comments T4 FREE (test code = T4F) 0.85 ng/dL 0.76-1.46 N [id number] 22:30:00* Test Item Value Reference Range Interpretation Comments TROPONIN-I (test code = TROPI) <0.015 ng/mL 0-0.045 N CALCIUM [id number] 22:30:00* Test Item Value Reference Range Interpretation Comments CALCIUM IONIZED (test code = ERICH) mmol/L 1.12-1.32 LIPID PROFILE (CORONARY RISK)2019-07-28 22:27:00* Test Item Value Reference Range Interpretation Comments TRIGLYCERIDES (test code = TRIG) 121 mg/dL 20-150 N CHOLESTEROL (test code = CHOL) 147 mg/dL 0-200 N CHOLESTEROL/HDL RATIO (test code = CHOLHDL) 2.0 RATIO 0-4.9 N RISK ASSOCIATED WITH CHOL/HDL RATIOS: Risk Male Female1/2 AVERAGE 3.43 3.27AVERAGE 4.97 4.442X AVERAGE 9.55 7.053X AVERAGE 23.39 11.04 REFERENCE VALUE IS RELATED TO RISK LEVELS ASRECOMMENDED BY THE TOD. HEART, LUNG, AND BLOOD INST. HDL CHOLESTEROL (test code = HDL) 54 mg/dL 40-60 N LIPOPROTEIN LDL (test code = LDL) 74 mg/dL 100-129 L Reference Interval: mg/dL mmol/L Optimal <100 <2.6Near/above optimal 100-129 2.6- 3.3Borderline High 130-159 3.4-4.1High 160-189 4.1-4.9Very High >=190 >=4.9========= This LDL result is a direct measurement.========= [id number] 22:27:00* Test Item Value Reference Range Interpretation Comments CALCIUM (test code = CA) 9.3 mg/dL 8.5-10.1 N [id number] 22:27:00* Test Item Value Reference Range Interpretation Comments CKMB (test code = CKMBT) < 1.0 ng/mL 0-6.0 N LACTIC [id number] 22:26:00* Test Item Value Reference Range Interpretation Comments LACTIC ACID (test code = LACT) 0.7 mmol/L 0.4-1.9 N - XR CHEST 1 [id number] 22:23:00 FAX: Kian Rogers [phone] [place]: [facility]: [facility] FAX: Ilan Holt MD Name: MARCELA CUMMINGS [facility] : 1950 Age/S: 69/F [address] Unit #: [id number] Loc: [place] [address] Phys: Kian Rogers Acct: [id number] Dis Date: Status: ADM IN PHONE #: [phone] Exam Date: 07/28/20192214 FAX #: [phone] Reason: updated pulm status EXAMS: CPT CODE: [id number] XR CHEST 1 V 55486 HISTORY: Bleeding from tracheostomy; updated pulm status TECHNIQUE: AP chest x-ray COMPARISON: Same date, 4 hours earlier IMPRESSION: No significant interval change. No pneumothorax. No airspace consolidation or pleural effusion. Right basilar subsegmental atelectasis. Tracheostomy tube. Normal heart size. Tracheostomy tube. Degenerative changes of the spine and shoulders. LOCATION: LP at 5021 Reported and signed by: Lenka Farrar D.O. CC: Kian Rogers; Ilan Stein Technologist: RT NIK(R); Maria Guadalupe Gonzalez(R) Trnscrd Date/Time/By: 07/28/2019 (2 223) : By: [email or web address] Orig Print D/T: S: 07/28/2019 (1173) PAGE 1 Signed Report - XR CHEST 1 [id number] 22:23:00 FAX: Kian Rogers [phone] [place]: St: DIS FAX: Ilan Holt MD Name: MOJGAN CUMMINGS [facility] : 1950 Age/S: 69/F [address] Unit #: [id number] Loc: V.[address] [place] [address] Phys: Kian Rogers Acct: [id number] Dis Date: [id number] Status: DIS IN PHONE #: [phone] Exam Date: 07/28/20192214 FAX #: [phone] Reason: updated pulm status EXAMS: CPT CODE: [id number] XR CHEST 1 V 74467 HISTORY: Bleeding from tracheostomy; updated pulm status TECHNIQUE: AP chest x-ray COMPARISON: Same date, 4 hours earlier IMPRESSION: No significant interval change. No pneumothorax. No airspace consolidation or pleural effusion. Right basilar subsegmental atelectasis. Tracheostomy tube. Normal heart size. Tracheostomy tube. Degenerative changes of the spine and shoulders. LOCATION: [facility] at 2223 Reported and signed by: Lenka Farrar D.O. CC: Kian Rogers; Ilan Stein Technologist: RT NIK(R); Maria Guadalupe Gonzalez(R) Trnscrd Date/Time/By: 07/28/2019 (2 223) : By: [email or web address] Orig Print D/T: S: 07/28/2019 (2901) PAGE 1 Signed Report [id number] 22:20:00* Test Item Value Reference Range Interpretation Comments AMMONIA (test code = AMM) 21 umol/L 11-32 N LIPID PROFILE (CORONARY RISK)2019-07-28 22:20:00* Test Item Value Reference Range Interpretation Comments TRIGLYCERIDES (test code = TRIG) mg/dL 20-150 CHOLESTEROL (test code = CHOL) mg/dL 0-200 CHOLESTEROL/HDL RATIO (test code = CHOLHDL) RATIO 0-4.9 HDL CHOLESTEROL (test code = HDL) mg/dL 40-60 LIPOPROTEIN LDL (test code = LDL) mg/dL 100-129 [id number] 22:20:00* Test Item Value Reference Range Interpretation Comments CALCIUM (test code = CA) 9.3 mg/dL 8.5-10.1 N [id number] 22:20:00* Test Item Value Reference Range Interpretation Comments CKMB (test code = CKMBT) ng/mL 0-6.0 COMPREHENSIVE METABOLIC [id number] 22:14:00* Test Item Value Reference Range Interpretation Comments SODIUM (test code = NA) 146 mmol/L 136-145 H POTASSIUM (test code = K) 3.5 mmol/L 3.5-5.1 N CHLORIDE (test code = CL) 112.0 mmol/L 98-107 H CARBON DIOXIDE (test code = CO2) mmol/L 21-32 ANION GAP (test code = GAP) 10-20 GLUCOSE (test code = GLU) mg/dL 74-106 BLOOD UREA NITROGEN (test code = BUN) mg/dL 7-18 GLOMERULAR FILTRATION RATE (test code = GFR) mL/min >=60 CREATININE (test code = CREAT) mg/dL 0.55-1.02 BUN/CREATININE RATIO (test code = BUN/CREA) 10-20 TOTAL PROTEIN (test code = PROT) gram/dL 6.4-8.2 ALBUMIN (test code = ALB) g/dL 3.4-5.0 GLOBULIN (test code = GLOB) gram/dL 2.7-4.2 ALBUMIN/GLOBULIN RATIO (test code = A/G) 0.75-1.50 CALCIUM (test code = CA) mg/dL 8.5-10.1 BILIRUBIN TOTAL (test code = BILT) mg/dL 0.0-1.0 SGOT/AST (test code = AST) IUnit/L 15-37 SGPT/ALT (test code = ALT) IUnit/L 12-78 ALKALINE PHOSPHATASE TOTAL (test code = ALKP) IUnit/L 45-117 [id number] 22:14:00* Test Item Value Reference Range Interpretation Comments PHOSPHORUS (test code = PHOS) mg/dL 2.5-4.9 [id number] 22:14:00* Test Item Value Reference Range Interpretation Comments LIPASE (test code = LIP) U/L 73.0-393.0 [id number] 22:14:00* Test Item Value Reference Range Interpretation Comments MAGNESIUM (test code = MAG) mg/dL 1.8-2.4 SERUM [id number] 22:14:00* Test Item Value Reference Range Interpretation Comments SERUM IRON (test code = IRON) ug/dL 50-175 TOTAL IRON BINDING [id number] 22:14:00* Test Item Value Reference Range Interpretation Comments TOTAL IRON BINDING CAPACITY (test code = TIBC) mcg/dL 250-450 THYROID PROFILE [id number] 22:14:00* Test Item Value Reference Range Interpretation Comments T3 UPTAKE (test code = T3UP) % 30.0-40.0 T4 (THYROXINE) (test code = T4) ug/dL 4.5-13.9 T7 (FREE THYROXINE INDEX) (test code = T7) FTI 1.3-5.1 THYROID STIMULATING HORMONE (test code = TSH) uIU/mL 0.36-3.7 4 TOTAL [id number] 22:14:00* Test Item Value Reference Range Interpretation Comments TOTAL T3 (test code = T3) T4 [id number] 22:14:00* Test Item Value Reference Range Interpretation Comments T4 FREE (test code = T4F) ng/dL 0.76-1.46 [id number] 22:14:00* Test Item Value Reference Range Interpretation Comments TROPONIN-I (test code = TROPI) ng/mL 0-0.045 CALCIUM [id number] 22:14:00* Test Item Value Reference Range Interpretation Comments CALCIUM IONIZED (test code = ERICH) mmol/L 1.12-1.32 PROTHROMBIN [id number] 22:13:00* Test Item Value Reference Range Interpretation Comments PROTHROMBIN TIME PATIENT (test code = PTP) 13.0 seconds 9.0-14.0 N INTERNATIONAL NORMAL RATIO (test code = INR) 1.1 0.8-1.2 N The therapeutic range for oral anticoagulant therapy formost indications is an international normalized ratio (INR)of between 2.0 and 3.0. The recommended therapeutic INRrange for various clinical situations is listed below: Clinical Situation INR range Pulmonary e mbolism treatment (2.0-3.0)Venous thrombosis treatmentVenous thrombosis prophylaxis (high risk surgery)Prevention of systemic embolism from: Acute myocardial infarction Valvular heart disease Atrial fibrillation Mechanical prosthetic heart valves (2.5-3.5) IS PATIENT ON ANTICOAGULANTS? YLIST ANTICOAGULANTS HEPARINTHROMBOPLASTIN TIME [id number] 22:13:00* Test Item Value Reference Range Interpretation Comments THROMBOPLASTIN TIME PARTIAL (test code = PTT) 28.5 seconds 25.0-36. 5 N IS PATIENT ON ANTICOAGULANTS? YLIST ANTICOAGULANTS HEPARIN- XR CHEST 1 V 2019-07-28 19:20:00 FAX: Ilan Holt MD [place]: St: [facility] FAX: Lisa Jeronimo MD [phone] Name: MARCELA CUMMINGS [facility] : 1950 Age/S: 69/F [address] [facility] Unit #: [id number] Loc: [place] [address] Phys: Lisa Jeronimo MD Acct: [id number] Dis Date: Status: ADM IN PHONE #: [phone] Exam Date: 07/28/2019 181 FAX #: [phone] Reason: post [facility] EXAMS: CPT CODE: [id number] XR CHEST 1 V 59209 HISTORY: Bleeding from tracheostomy; post bronchoscopy TECHNIQUE: AP chest x-ray COMPARISON: Same date, 2 hours earlier IMPRESSION: No significant interval change. No pneumothorax. No airspace consolidation or pleural effusion. Right basilar subsegmental atelectasis. Normal heart size. Tracheostomy tube. LOCATION: at 0 Reported and signed by: Lenka Farrar D.O. CC: Ilan Stein; Lisa Jeronimo MD Technologist: RADHA ALEXANDRA(R) Trnscrd Date/Time/By: 07/28/2019 (1919) : By: [email or web address] Orig Print D/T: S: 07/28/2019 (1922) PAGE 1 Signed Report - XR CHEST 1 [id number] 19:20:00 FAX: Ilan Holt MD [place]: St: DIS FAX: Lisa Jeronimo MD [phone] Name: MOJGAN CUMMINGS [facility] : 1950 Age/S: 69/F [address] [facility] Unit #: [id number] [place].[address] [place] [address] Phys: Lisa Jeronimo MD Acct: [id number] Dis Date: [id number] Status: DIS IN PHONE #: [phone] Exam Date: 07/28/20191814 FAX #: [phone] Reason: post [facility] EXAMS: CPT CODE: [id number] XR CHEST 1 V 60460 HISTORY: Bleeding from tracheostomy; post bronchoscopy TECHNIQUE: AP chest x-ray COMPARISON: Same date, 2 hours earlier IMPRESSION: No significant interval change. No pneumothorax. No airspace consolidation or pleural effusion. Right basilar subsegmental atelectasis. Normal heart size. Tracheostomy tube. LOCATION: at 1919 Reported and signed by: Lenka Farrar D.O. CC: Ilan Stein; Lisa Jeronimo MD Technologist: RADHA LOCKETT RT(R) Trnscrd Date/Time/By: 07/28/2019 (1919) : By: [email or web address] Orig Print D/T: S: 07/28/2019 (1922) PAGE 1 Signed Report CBC W/AUTO [id number] 17:12:00* Test Item Value Reference Range Interpretation Comments WHITE BLOOD CELL (test code = WBC) 5.7 K/mm3 4.5-12.5 N RED BLOOD CELL (test code = RBC) 3.48 mill/mm3 3.7-5.2 L HEMOGLOBIN (test code = HGB) 10.4 gram/dL 11.5-15.5 L HEMATOCRIT (test code = HCT) 33.0 % 36.0-46.0 L MEAN CELL VOLUME (test code = MCV) 94.8 fL 80-98 N MEAN CELL HGB (test code = MCH) 29.9 picogram 27.0-33.0 N MEAN CELL HGB CONCETRATION (test code = MCHC) 31.5 gram/dL 33.0-36. 0 L RED CELL DISTRIBUTION WIDTH (test code = RDW) 11.9 % 11.6-16. 2 N RED CELL DISTRIBUTION WIDTH SD (test code = RDW-SD) 41.1 fL 37 .0-51.0 N PLATELET COUNT (test code = PLT) 36 K/mm3 150-450 LL Results called to [id number] by [email or web address] 07/28/19 1629Critical results verified and read back by Nurse? Y NEUTROPHIL % (test code = NT%) 69.7 % 39.0-69.0 H IMMATURE GRANULOCYTE % (test code = IG%) 0.2 % 0.0-5.0 N LYMPHOCYTE % (test code = LY%) 19.8 % 25.0-55.0 L MONOCYTE % (test code = MO%) 5.8 % 0.0-10.0 N EOSINOPHIL % (test code = EO%) 4.1 % 0.0-5.0 N BASOPHIL % (test code = BA%) 0.4 % 0.0-1.0 N NUCLEATED RBC % (test code = NRBC%) 0.0 % 0-0 N NEUTROPHIL # (test code = NT#) 3.94 K/mm3 1.8-7.7 N IMMATURE GRANULOCYTE # (test code = IG#) 0.01 x10 3/uL 0-0.03 N LYMPHOCYTE # (test code = LY#) 1.12 K/mm3 1.0-5.0 N MONOCYTE # (test code = MO#) 0.33 K/mm3 0-0.8 N EOSINOPHIL # (test code = EO#) 0.23 K/mm3 0.0-0.5 N BASOPHIL # (test code = BA#) 0.02 K/mm3 0.0-0.2 N NUCLEATED RBC # (test code = NRBC#) 0.00 K/mm3 0.0-0.1 N MANUAL DIFF REQUIRED (test code = MDIFF) NO, ONLY SCAN NEEDED DIFFERENTIAL [id number] 17:12:00* Test Item Value Reference Range Interpretation Comments STAIN ACCEPTABILITY (test code = STN ACCEPTABLE) STAIN ACCEPTABLE MORPHOLOGY COMMENT (test code = MOC) NORMAL PLATELET ESTIMATE (test code = PLTEST) DECREASED PLATELET MORPHOLOGY (test code = PLTMORPH) NORMAL COMPREHENSIVE METABOLIC [id number] 16:41:00* Test Item Value Reference Range Interpretation Comments SODIUM (test code = NA) 146 mmol/L 136-145 H POTASSIUM (test code = K) 3.9 mmol/L 3.5-5.1 N CHLORIDE (test code = CL) 111.0 mmol/L 98-107 H CARBON DIOXIDE (test code = CO2) 30.0 mmol/L 21-32 N ANION GAP (test code = GAP) 8.9 10-20 L GLUCOSE (test code = GLU) 108 mg/dL 74-106 H BLOOD UREA NITROGEN (test code = BUN) 26 mg/dL 7-18 H GLOMERULAR FILTRATION RATE (test code = GFR) > 60 mL/min >=60 Estimated GFR by using Modified MDRD formula.Chronic kidney disease is defined as either kidney damageor GFR <60 mL/min/1.73 m2 for >3 months. CREATININE (test code = CREAT) 0.60 mg/dL 0.55-1.02 N Note change in reference range due to change in reagent. BUN/CREATININE RATIO (test code = BUN/CREA) 42.3 10-20 H TOTAL PROTEIN (test code = PROT) 6.8 gram/dL 6.4-8.2 N ALBUMIN (test code = ALB) 3.3 g/dL 3.4-5.0 L GLOBULIN (test code = GLOB) 3.5 gram/dL 2.7-4.2 N ALBUMIN/GLOBULIN RATIO (test code = A/G) 0.9 0.75-1.50 N CALCIUM (test code = CA) 9.8 mg/dL 8.5-10.1 N BILIRUBIN TOTAL (test code = BILT) 0.20 mg/dL 0.0-1.0 N SGOT/AST (test code = AST) 12 IUnit/L 15-37 L SGPT/ALT (test code = ALT) 13 IUnit/L 12-78 N ALKALINE PHOSPHATASE TOTAL (test code = ALKP) 95 IUnit/L 45-117 N Note change in reference range due to change in reagent. COMPREHENSIVE METABOLIC [id number] 16:33:00* Test Item Value Reference Range Interpretation Comments SODIUM (test code = NA) 146 mmol/L 136-145 H POTASSIUM (test code = K) 3.9 mmol/L 3.5-5.1 N CHLORIDE (test code = CL) 111.0 mmol/L 98-107 H CARBON DIOXIDE (test code = CO2) mmol/L 21-32 ANION GAP (test code = GAP) 10-20 GLUCOSE (test code = GLU) mg/dL 74-106 BLOOD UREA NITROGEN (test code = BUN) mg/dL 7-18 GLOMERULAR FILTRATION RATE (test code = GFR) mL/min >=60 CREATININE (test code = CREAT) mg/dL 0.55-1.02 BUN/CREATININE RATIO (test code = BUN/CREA) 10-20 TOTAL PROTEIN (test code = PROT) gram/dL 6.4-8.2 ALBUMIN (test code = ALB) g/dL 3.4-5.0 GLOBULIN (test code = GLOB) gram/dL 2.7-4.2 ALBUMIN/GLOBULIN RATIO (test code = A/G) 0.75-1.50 CALCIUM (test code = CA) mg/dL 8.5-10.1 BILIRUBIN TOTAL (test code = BILT) mg/dL 0.0-1.0 SGOT/AST (test code = AST) IUnit/L 15-37 SGPT/ALT (test code = ALT) IUnit/L 12-78 ALKALINE PHOSPHATASE TOTAL (test code = ALKP) IUnit/L 45-117 CBC W/AUTO [id number] 16:29:00* Test Item Value Reference Range Interpretation Comments WHITE BLOOD CELL (test code = WBC) 5.7 K/mm3 4.5-12.5 N RED BLOOD CELL (test code = RBC) 3.48 mill/mm3 3.7-5.2 L HEMOGLOBIN (test code = HGB) 10.4 gram/dL 11.5-15.5 L HEMATOCRIT (test code = HCT) 33.0 % 36.0-46.0 L MEAN CELL VOLUME (test code = MCV) 94.8 fL 80-98 N MEAN CELL HGB (test code = MCH) 29.9 picogram 27.0-33.0 N MEAN CELL HGB CONCETRATION (test code = MCHC) 31.5 gram/dL 33.0-36. 0 L RED CELL DISTRIBUTION WIDTH (test code = RDW) 11.9 % 11.6-16. 2 N RED CELL DISTRIBUTION WIDTH SD (test code = RDW-SD) 41.1 fL 37 .0-51.0 N PLATELET COUNT (test code = PLT) 36 K/mm3 150-450 LL Results called to [id number] by [email or web address] 07/28/19 1629Critical results verified and read back by Nurse? Y NEUTROPHIL % (test code = NT%) 69.7 % 39.0-69.0 H IMMATURE GRANULOCYTE % (test code = IG%) 0.2 % 0.0-5.0 N LYMPHOCYTE % (test code = LY%) 19.8 % 25.0-55.0 L MONOCYTE % (test code = MO%) 5.8 % 0.0-10.0 N EOSINOPHIL % (test code = EO%) 4.1 % 0.0-5.0 N BASOPHIL % (test code = BA%) 0.4 % 0.0-1.0 N NUCLEATED RBC % (test code = NRBC%) 0.0 % 0-0 N NEUTROPHIL # (test code = NT#) 3.94 K/mm3 1.8-7.7 N IMMATURE GRANULOCYTE # (test code = IG#) 0.01 x10 3/uL 0-0.03 N LYMPHOCYTE # (test code = LY#) 1.12 K/mm3 1.0-5.0 N MONOCYTE # (test code = MO#) 0.33 K/mm3 0-0.8 N EOSINOPHIL # (test code = EO#) 0.23 K/mm3 0.0-0.5 N BASOPHIL # (test code = BA#) 0.02 K/mm3 0.0-0.2 N NUCLEATED RBC # (test code = NRBC#) 0.00 K/mm3 0.0-0.1 N MANUAL DIFF REQUIRED (test code = MDIFF) NO, ONLY SCAN NEEDED DIFFERENTIAL [id number] 16:29:00* Test Item Value Reference Range Interpretation Comments STAIN ACCEPTABILITY (test code = STN ACCEPTABLE) CABOT RINGS (test code = CAB) MORPHOLOGY COMMENT (test code = MOC) PLATELET ESTIMATE (test code = PLTEST) PLATELET MORPHOLOGY (test code = PLTMORPH) CBC W/AUTO [id number] 16:29:00* Test Item Value Reference Range Interpretation Comments WHITE BLOOD CELL (test code = WBC) 5.7 K/mm3 4.5-12.5 N RED BLOOD CELL (test code = RBC) 3.48 mill/mm3 3.7-5.2 L HEMOGLOBIN (test code = HGB) 10.4 gram/dL 11.5-15.5 L HEMATOCRIT (test code = HCT) 33.0 % 36.0-46.0 L MEAN CELL VOLUME (test code = MCV) 94.8 fL 80-98 N MEAN CELL HGB (test code = MCH) 29.9 picogram 27.0-33.0 N MEAN CELL HGB CONCETRATION (test code = MCHC) 31.5 gram/dL 33.0-36. 0 L RED CELL DISTRIBUTION WIDTH (test code = RDW) 11.9 % 11.6-16. 2 N RED CELL DISTRIBUTION WIDTH SD (test code = RDW-SD) 41.1 fL 37 .0-51.0 N PLATELET COUNT (test code = PLT) 36 K/mm3 150-450 LL Results called to [id number] by [email or web address] 07/28/19 1629Critical results verified and read back by Nurse? Y NEUTROPHIL % (test code = NT%) 69.7 % 39.0-69.0 H IMMATURE GRANULOCYTE % (test code = IG%) 0.2 % 0.0-5.0 N LYMPHOCYTE % (test code = LY%) 19.8 % 25.0-55.0 L MONOCYTE % (test code = MO%) 5.8 % 0.0-10.0 N EOSINOPHIL % (test code = EO%) 4.1 % 0.0-5.0 N BASOPHIL % (test code = BA%) 0.4 % 0.0-1.0 N NUCLEATED RBC % (test code = NRBC%) 0.0 % 0-0 N NEUTROPHIL # (test code = NT#) 3.94 K/mm3 1.8-7.7 N IMMATURE GRANULOCYTE # (test code = IG#) 0.01 x10 3/uL 0-0.03 N LYMPHOCYTE # (test code = LY#) 1.12 K/mm3 1.0-5.0 N MONOCYTE # (test code = MO#) 0.33 K/mm3 0-0.8 N EOSINOPHIL # (test code = EO#) 0.23 K/mm3 0.0-0.5 N BASOPHIL # (test code = BA#) 0.02 K/mm3 0.0-0.2 N NUCLEATED RBC # (test code = NRBC#) 0.00 K/mm3 0.0-0.1 N MANUAL DIFF REQUIRED (test code = MDIFF) NO, ONLY SCAN NEEDED DIFFERENTIAL [id number] 16:29:00* Test Item Value Reference Range Interpretation Comments STAIN ACCEPTABILITY (test code = STN ACCEPTABLE) CABOT RINGS (test code = CAB) MORPHOLOGY COMMENT (test code = MOC) PLATELET ESTIMATE (test code = PLTEST) PLATELET MORPHOLOGY (test code = PLTMORPH) CBC W/AUTO [id number] 16:29:00* Test Item Value Reference Range Interpretation Comments WHITE BLOOD CELL (test code = WBC) 5.7 K/mm3 4.5-12.5 N RED BLOOD CELL (test code = RBC) 3.48 mill/mm3 3.7-5.2 L HEMOGLOBIN (test code = HGB) 10.4 gram/dL 11.5-15.5 L HEMATOCRIT (test code = HCT) 33.0 % 36.0-46.0 L MEAN CELL VOLUME (test code = MCV) 94.8 fL 80-98 N MEAN CELL HGB (test code = MCH) 29.9 picogram 27.0-33.0 N MEAN CELL HGB CONCETRATION (test code = MCHC) 31.5 gram/dL 33.0-36. 0 L RED CELL DISTRIBUTION WIDTH (test code = RDW) 11.9 % 11.6-16. 2 N RED CELL DISTRIBUTION WIDTH SD (test code = RDW-SD) 41.1 fL 37 .0-51.0 N PLATELET COUNT (test code = PLT) 36 K/mm3 150-450 LL Results called to [id number] by [email or web address] 07/28/19 1629Critical results verified and read back by Nurse? Y NEUTROPHIL % (test code = NT%) 69.7 % 39.0-69.0 H IMMATURE GRANULOCYTE % (test code = IG%) 0.2 % 0.0-5.0 N LYMPHOCYTE % (test code = LY%) 19.8 % 25.0-55.0 L MONOCYTE % (test code = MO%) 5.8 % 0.0-10.0 N EOSINOPHIL % (test code = EO%) 4.1 % 0.0-5.0 N BASOPHIL % (test code = BA%) 0.4 % 0.0-1.0 N NUCLEATED RBC % (test code = NRBC%) 0.0 % 0-0 N NEUTROPHIL # (test code = NT#) 3.94 K/mm3 1.8-7.7 N IMMATURE GRANULOCYTE # (test code = IG#) 0.01 x10 3/uL 0-0.03 N LYMPHOCYTE # (test code = LY#) 1.12 K/mm3 1.0-5.0 N MONOCYTE # (test code = MO#) 0.33 K/mm3 0-0.8 N EOSINOPHIL # (test code = EO#) 0.23 K/mm3 0.0-0.5 N BASOPHIL # (test code = BA#) 0.02 K/mm3 0.0-0.2 N NUCLEATED RBC # (test code = NRBC#) 0.00 K/mm3 0.0-0.1 N MANUAL DIFF REQUIRED (test code = MDIFF) NO, ONLY SCAN NEEDED DIFFERENTIAL [id number] 16:29:00* Test Item Value Reference Range Interpretation Comments STAIN ACCEPTABILITY (test code = STN ACCEPTABLE) MORPHOLOGY COMMENT (test code = MOC) PLATELET ESTIMATE (test code = PLTEST) PLATELET MORPHOLOGY (test code = PLTMORPH) CBC W/AUTO [id number] 16:29:00* Test Item Value Reference Range Interpretation Comments WHITE BLOOD CELL (test code = WBC) 5.7 K/mm3 4.5-12.5 N RED BLOOD CELL (test code = RBC) 3.48 mill/mm3 3.7-5.2 L HEMOGLOBIN (test code = HGB) 10.4 gram/dL 11.5-15.5 L HEMATOCRIT (test code = HCT) 33.0 % 36.0-46.0 L MEAN CELL VOLUME (test code = MCV) 94.8 fL 80-98 N MEAN CELL HGB (test code = MCH) 29.9 picogram 27.0-33.0 N MEAN CELL HGB CONCETRATION (test code = MCHC) 31.5 gram/dL 33.0-36. 0 L RED CELL DISTRIBUTION WIDTH (test code = RDW) 11.9 % 11.6-16. 2 N RED CELL DISTRIBUTION WIDTH SD (test code = RDW-SD) 41.1 fL 37 .0-51.0 N PLATELET COUNT (test code = PLT) 36 K/mm3 150-450 LL Results called to [id number] by [email or web address] 07/28/19 1629Critical results verified and read back by Nurse? Y NEUTROPHIL % (test code = NT%) 69.7 % 39.0-69.0 H IMMATURE GRANULOCYTE % (test code = IG%) 0.2 % 0.0-5.0 N LYMPHOCYTE % (test code = LY%) 19.8 % 25.0-55.0 L MONOCYTE % (test code = MO%) 5.8 % 0.0-10.0 N EOSINOPHIL % (test code = EO%) 4.1 % 0.0-5.0 N BASOPHIL % (test code = BA%) 0.4 % 0.0-1.0 N NUCLEATED RBC % (test code = NRBC%) 0.0 % 0-0 N NEUTROPHIL # (test code = NT#) 3.94 K/mm3 1.8-7.7 N IMMATURE GRANULOCYTE # (test code = IG#) 0.01 x10 3/uL 0-0.03 N LYMPHOCYTE # (test code = LY#) 1.12 K/mm3 1.0-5.0 N MONOCYTE # (test code = MO#) 0.33 K/mm3 0-0.8 N EOSINOPHIL # (test code = EO#) 0.23 K/mm3 0.0-0.5 N BASOPHIL # (test code = BA#) 0.02 K/mm3 0.0-0.2 N NUCLEATED RBC # (test code = NRBC#) 0.00 K/mm3 0.0-0.1 N MANUAL DIFF REQUIRED (test code = MDIFF) NO, ONLY SCAN NEEDED DIFFERENTIAL [id number] 16:29:00* Test Item Value Reference Range Interpretation Comments STAIN ACCEPTABILITY (test code = STN ACCEPTABLE) CABOT RINGS (test code = CAB) MORPHOLOGY COMMENT (test code = MOC) PLATELET ESTIMATE (test code = PLTEST) PLATELET MORPHOLOGY (test code = PLTMORPH) - XR CHEST 1 [id number] 16:28:00 FAX: Lisa Jeronimo MD [phone] [place]: St: PRE Name: MARCELA SAUCEDO [facility] : [birth year] Age/S: 69/F [address] [facility] Unit #: [id number] Loc: [place] [address] Phys: Lisa Jeronimo MD Acct: [id number] Dis Date: Status: PRE ER PHONE #: [phone] Exam Date: 07/28/2019 1612 FAX #: [phone] Reason: sob EXAMS: CPT CODE: [id number] XR CHEST 1 V 63536 HISTORY: Shortness of breath TECHNIQUE: AP chest x-ray COMPARISON: None FINDINGS: No airspace consolidation or pleural effusion. Tracheost alonzo tube. Normal heart size. Mediastinal silhouette is unremarkable. Degenerative changes of the spine and shoulders. IMPRESSION: No radiographic evidence of acute cardiopulmonary process. LOCATION: LP at 1628 Reported and signed by: Lenka Farrar D.O. CC: Lisa Jeronimo MD Technologist: Misty ALEXANDRA(R) Trnscrd Date/Time/By: 07/28/2019 (5935) : By: [email or web address] Orig Print D/T: S: 07/28/2019 (4322) PAGE 1 Signed Report - XR CHEST 1 [id number] 16:28:00 FAX: Lisa Jeronimo MD [phone] [place]: St: DIS Name: MOJGAN SAUCEDO [facility] : [birth year] Age/S: 69/F [address] [facility] Unit #: [id number] Loc: [address] [place] [address] Phys: Lisa Jeronimo MD Acct: [id number] Dis Date: [id number] Status: DIS IN PHONE #: [phone] Exam Date: 07/28/2019 1612 FAX #: [phone] Reason: sob EXAMS: CPT CODE: [id number] XR CHEST 1 V 90842 HISTORY: Shortness of breath TECHNIQUE: AP chest x-ray COMPARISON: None FINDINGS: No airspace consolidation or pleural effusion. Tracheost alonzo tube. Normal heart size. Mediastinal silhouette is unremarkable. Degenerative changes of the spine and shoulders. IMPRESSION: No radiographic evidence of acute cardiopulmonary process. LOCATION: at 1628 Reported and signed by: Lenka Farrar D.O. CC: Lisa Jeronimo MD Technologist: Misty Pena RT(R) Trnscrd Date/Time/By: 07/28/2019 (1628) : By: [email or web address] Orig Print D/T: S: 07/28/2019 (0387) PAGE 1 Signed Report Differential Total Cells [id number] 06:15:00* Test Item Value Reference Range Interpretation Comments Differential Total Cells Counted (test code = Differen tial Total Cells Counted) 16 [facility]2019-07-12 06:15:00 * Test Item Value Reference Range Interpretation Comments Neutrophils % (Manual) (test code = 69542-6) 56 40-74 [facility] % (Manual)2019-07-12 06:15:00* Test Item Value Reference Range Interpretation Comments Monocytes % (Manual) (test code = 744-3) 31 3.4-9.0 [facility] % (Manual)2019-07-12 06:15:00 * Test Item Value Reference Range Interpretation Comments Eosinophils % (Manual) (test code = 714-6) 13 0-7 [facility] [id number] 12:15:00 [facility] [address] [address] Patient Name: MOJGAN CUMMINGS MR #: [id number] : 1950 Age/Sex: 69/F Req #: [id number] Adm Physician: ILAN STEIN MD Ordered by: MARK ANTHONY KERNS MD Report #: [id number] Location: [facility] Room/Bed: [address] [address] Procedure: [id number] CT/CT CHEST W Exam Date: 07/11/19 Exam Time: 1046 REPORT STATUS: Signed CT of the chest, with contrast, 07/11/2019. History: Hemoptysis. Compari son: Chest x-ray from earlier today. Technique: Multidetector CT scanning o f the chest was performed from the level of the apices to the upper abdomen af ter intravenous administration of contrast. Coronal and sagittal multiplanar reformations were obtained. RADIATION DOSE: Total DLP: 507 mGy*cm Dose modulation, iterative reconstruction, and/or weight based adjustment of the mA/kV was utilized to reduce the radiation dose to as low as reasonably achievable. Discussion: Chest: The atria, ventricles, aorta, and main pulmonary artery are normal in size. The thyroid is unremarkable. There is no evidence of axillary or mediastinal adenopathy. A tracheostomy tube is p resent terminating 4 cm above the marlyn. Central airways are patent. There is scattered subsegmental atelectasis bilaterally, especially in the lower lobes. A 1.5 x 0.9 cm pulmonary opacity with ill-defined borders is noted in the ri ght lower lobe, axial images 73 through 76, with adjacent linear atelectasis. There is no evidence of pleural effusion. Limited evaluation of the up per abdomen shows normal adrenal glands. Bones and soft tissues: No acute a bnormality. Advanced degenerative changes are present in both shoulders and th roughout the thoracic spine. IMPRESSION: Right lower lobe round atelec tasis/round pneumonia versus pulmonary nodule. Recommend follow-up CT in 3 mon ths to ensure resolution. Signed by: Caitlyn Burns on 07/11/2019 12: 32 PM Dictated By: CAITLYN BURNS MD 1232 Transcribed By: BAMBI on 07/11/19 1232 COPY TO: MARK ANTHONY KERNS MD CT SOFT TISSUE NECK [id number] 12:04:[address] [address] Patient Name: MOJGAN CUMMINGS MR #: [id number] : 1950 Age/Sex: 69/F Req #: [id number] Adm Physician: ILAN STEIN MD Ordered by: MARK ANTHONY KERNS MD Report #: [id number] Location: [facility] Room/Bed: [place] [address] Procedure: [id number] CT/CT SOFT TISSUE NECK W Exam Date: 07/11/19 Exam Time: 1 046 REPORT STATUS: Signed CT SOF T TISSUE NECK W HISTORY: Hemoptysis COMPARISON: Neck CT 03/01/2019 TECHNIQUE: Axial CT images were obtained through the neck with intravenous, iodine based contrast. Coronal and sagittal reconstructions obtained from t he axial data. One or more of the following dose reduction techniques were us ed: Automated exposure control, adjustment of the mA and/or kV according to pa tient size, and/or utilization of iterative reconstruction technique. DISCUSSION: The tongue is mildly atrophic. Tracheostomy tube is in place. Mild focal circumferential mid tracheal wall thickening with mild stenosis is seen at the level of the tracheostomy tube tip. Trace fluid is seen in the m id esophagus. Otherwise, the visualized upper aerodigestive tract is unremarka ble. No radiographically significant cervical adenopathy is seen. The thyroid gland is unremarkable. The submandibular and parotid glands are unrem arkable. Moderate right and mild left carotid bulb calcified plaque is seen. The manager treasury, parapharyngeal, posterior cervical, and perivertebral spaces a re unremarkable. Mild carotid siphon calcifications are present. Otherwise, the visualized intracranial compartment and orbits are grossly unremarkable. The left sphenoid sinus is opacified. Mild left maxillary sinus mucosal thick ening is seen. Bilateral middle ear and mastoid effusions are present, left gr eater than right. There are mild to moderate degenerative changes throughout the spine. There are also partially visualized degenerative changes in the dalia ateral shoulders. Mild dependent atelectasis is seen in the bilateral upper l ungs. IMPRESSION: 1. Tracheostomy tube in place. 2. Nonspecific mild focal circumferential mid tracheal wall thickening with mild stenosis at the l evel of the tracheostomy tube tip. 3. Mildly atrophic tongue. Trace fluid in the mid esophagus. 4. Otherwise, the visualized upper aerodigestive tract is unremarkable. 5. No radiographically significant cervical adenopathy. Si gned by: Dr. La Nena Matias M.D. on 07/11/2019 12:18 PM Dictated By: MARK MATIAS MD 1218 Transcribed By: BAMBI on 07/11/19 1218 COPY TO: MARK ANTHONY KERNS MD CHEST SINGLE (PORTABLE)2019-07-11 08:16:00 [facility] [address] [address] Patient Name: MOJGAN CUMMINGS MR #: [id number] : 1950 Age/Sex: 69/F Req #: [id number] Adm Physician: ILAN STEIN MD Ordered by: PHOENIX CIFUENTES MD Report #: [id number] Location: [facility] Room/Bed: [address] [address] Procedure: 1023-0 007 DX/CHEST SINGLE (PORTABLE) Exam Date: 07/11/19 E xam Time: 519 REPORT STATUS: Lizzy d Chest, 1 view, 07/11/2019. History: Hemoptysis. Compariso n: 07/10/2019. Findings: The cardiomediastinal silhouette and pulmonary vas culature are within normal limits for a portable exam. There is no focal conso lidation or pleural effusion. Tracheotomy tube is again noted. Severe degenera tive changes of the shoulders are present. There are no acute osseous or soft tissue abnormalities. Impression: No acute cardiopulmonary abnormalit y. Signed by: Caitlyn Burns on 07/11/2019 8:17 AM Dictated By: ELMER BURNS MD 6 Transc ribed By: BAMBI on 07/11/19816 COPY TO: PHOENIX CIFUENTES MD CHEST SINGLE (PORTABLE)2019-07-10 19:54:00 [address] [address] Patient Name: MOJGAN CUMMINGS MR #: [id number] : 1950 Age/Sex: 69/F Req #: [id number] Adm Physician: Ordered by: PHOENIX CIFUENTES MD Report #: [id number] Location: ER Room/Bed: Procedure: 1022-00 68 DX/CHEST SINGLE (PORTABLE) Exam Date: 07/10/19 Ex am Time: 1951 REPORT STATUS: Signed EXAMINATION: CHEST SINGLE (PORTABLE) INDICATION: Hemoptysis hemoptysis 20190710 Y COMPARISON: 06/14/2019 D ISCUSSION: Portable technique, limits sensitivity of the exam. Soft tissue attenuation partially limits sensitivity of the exam. Overlying artifacts. T ubes/Lines: Unchanged tracheostomy tube. Lungs and pleura: Mild promin ence of the central peribronchial markings. No evidence of a consolidative pne umonia or pulmonary alveolar edema. No definite pleural effusion or pneumothor ax is identified. Heart and mediastinum: The cardiomediastinal silhouet te appear(s) unremarkable. Bones and soft tissues: Severe bilateral deg enerative changes of the glenohumeral joints. IMPRESSION: 1. Finding s which could be seen in the setting of a nonspecific bronchitis and/or aspira tion. 2. No consolidative pneumonia.. Signed by: Crispin Foster 07/10/2019 7:59 PM Dictated By: ELVI WYMAN MD, MD Electronically Sig julian By: ELVI WYMAN MD, MD on 07/10/191958 Transcribed By: BAMBI on 1960 COPY TO: PHOENIX CIFUENTES MD YYXQKIEYLTMY7829-03-07 05:54:0010.7[facility] CenterRsozbiFDTWPSHDSYKE4130-53-85 05:54:50530WW [facility] CenterNihtgySEQABMBDKKHX8838-60-20 05:54:0026MH [facility] HVQAQLSBLUSO6777-69-97 05:54:000.80[facility] CenterYnqiooZNALALWJMBDG7714-24-17 05:54:59383VB[facility] HospitalRbwmlyLGPCCVOYQLNW1669-87-99 05:54:003.7[facility] HospitalPohkzlQKKHEBYVZMBE8006-40-14 05:54:08376N[facility] DJTRINTUFTWQ2208-74-36 05:54:0029[facility] HospitalJbeyzsRTVSIUYPSAMJ1510-49-76 05:54:009.5[facility] HospitalInsjznCCEUVXDLXBCD6336-27-25 05:54:0074[facility] HospitalKgxzwpTDFNGCIUVI5889-74-52 05:54:[address] [place], [place] [address]HEMATOLOGY 2019-07-01 05:54:[address] [place], [place] [address]PcmmjdYSKUWNAKJX1163-68-72 05:54:007.5[facility] HospitalZkybweAGBPFHWUDG0569-37-93 05:54:003.4[facility] EDRKDAUJPY3329-62-71 05:54:000.[address] [place], [place] [address]LyapvrLNNSBSOREZ7823-74-69 05:54:004.7[facility] HospitalIkvgtuLQHUJQCLBF1504-43-26 05:54:001.7[facility] HospitalQohlucXOERMLEFLB0126-56-66 05:54:000.5[facility] 2019-07-01 05:54:000.[address] [place], [place] [address]ZizshyJAFJUDCGXJ4083-88-57 05:54:007.[address] [place], [place] [address]RqpokhPYHQGYEMHG5001-43-33 05:54:[address] [place] [address] LDWCXNWXQP3937-77-43 05:54:[address] [place], [place] [address]MpecymYNRCGWWWCB3167-10-75 05:54:[address] [place], [place] [address]VnxbzmOEGNFEAFBG2259-91-51 05:54:[address] [place], [place] [address]UymbqrGLMTIORQIU9448-63-03 05:54:00* Test Item Value Reference Range Interpretation Comments MCH (test code = MCH) 30.7 pg 27.0-31.0 [facility] HospitalArfsqwHHYJQMRMOZ6040-48-74 05:54:[address] [place] [address] BNSYGOSWNT0460-64-44 05:54:[address] [place], [place] [address]XlvbmmKLUCIDIZMI4883-94-17 05:54:0021[facility] HospitalFbhcqmNQHGCWXKMT0813-14-02 05:54:0012.4[facility] HospitalUmzlrwSHPSOLFUVL2952-32-45 09:35:0055.9[facility] HospitalHE[facility]OLOGY 2019-06-30 09:35:0032.5[facility] HospitalCorjvaSGLQJXFGAC7003-69-67 09:35:007.0[facility] HospitalMybavcCOLURRBVXE3453-85-59 09:35:004.2[facility] ECSHIXITPM1163-22-44 09:35:000.4[facility] HospitalMegisgHFZBXVOVGG0276-14-89 09:35:002.7[facility] HospitalGawpsmQSOHFPPHXS2964-88-68 09:35:001.6[facility] HospitalGynopbBHXQSNXYJC3347-97-54 09:35:000.3M[facility] HospitalHEMATOLOGY 2019-06-30 09:35:000.2[facility] HospitalGozxzwYUUZTGAKJH3587-84-82 09:35:004.8[facility] HospitalYdumfkTTJDBHRTNN1970-07-54 09:35:003.49[facility] DIAHHHOIPR5999-29-94 09:35:0010.8[facility] HospitalDirutkTDVTYAVRVK8874-21-57 09:35:0032.5[facility] HospitalNffsfdVPFMLIQYDR9208-57-70 09:35:0093.0[facility] HospitalCelgymVWGXUVMFRL1076-22-29 09:35:00* Test Item Value Reference Range Interpretation Comments MCH (test code = MCH) 30.9 pg 27.0-31.0 [facility] HospitalBmsxjqNLVGAHTHVC3845-18-79 09:35:[address] [place] [address] MDFEDGLNOQ7977-73-46 09:35:[address] [place], [place] [address]JaaeuhUUFUYFRXLP6491-67-22 09:35:0019[facility] HospitalClsdneYYSQAYJVOZ9871-55-16 09:35:0011.8[facility] CenterANEMIA DOMSV3681-12-55 23:50:76166AV[facility] CenterANEMIA YDEZT3705-53-73 23:50:0046.0[facility] CenterANEMIA QRZTO4633-87-69 23:50:98867XUMethodist McKinney HospitalCHEM GHXFN3648-25-59 23:50:41259WZMethodist [facility]ney HospitalCHEM IGFRC4995-50-88 23:50:0078[facility] HospitalCHEM PANEL 2019-06-28 23:50:0014[facility] HospitalCHEM BCGXS9040-43-29 23:50:000.78[facility] HospitalCHEM WHNUO0866-75-57 23:50:60609ZGMethodist McKinney HospitalCHEM PPFPB6254-78-72 23:50:003.5[facility] HospitalCHEM IZTOW1392-46-97 23:50:00 103[facility] HospitalCHEM ROJRX7796-02-43 23:50:0027[facility] CHEM RFLHG8456-31-46 23:50:009.0[facility] HospitalCHEM KBWEG0614-21-96 23:50:006.7[facility] HospitalCHEM PEUVA3131-42-43 23:50:003.7[facility] HospitalCHEM YRNYC6983-06-18 23:50:0015[facility] HospitalCHEM PANEL 2019-06-28 23:50:0013[facility]CHEM FHPYD2786-34-61 23:50:59665EXMethod[facility] HospitalCHEM RULTB6042-21-60 23:50:000.4[facility]CHE[facility] VTYPH5028-18-93 23:50:0077[facility]CHEM AZXMY4249-29-63 23:50:00 14.5[facility]CHE[facility] ZQKYW5904-62-65 23:50:00* Test Item Value Reference Range Interpretation Comments B/C Ratio (test code = B/C Ratio) 18 1 6-25 [facility] QMRXI1397-01-77 23:50:003.0[facility] CHEM YILKL3179-39-00 23:50:00* Test Item Value Reference Range Interpretation Comments A/G Ratio (test code = A/G Ratio) 1.2 1 0.7-1.6 [facility] HospitalEyxufeAGSWWFRCXF3828-51-17 23:50:009.3M[facility] KKJEGMKMJN3604-88-96 23:50:003.77[facility] HospitalYnygikDKCUUPYSUJ7412-58-60 23:50:0011.5[facility] HospitalTkybkoMQMFJZXUFX7864-09-45 23:50:[address] [place], [place] [address]WvveptSGAJJTJJUV6690-31-53 23:50:0092.9[facility] HospitalHEMATOLOGY 2019-06-28 23:50:00* Test Item Value Reference Range Interpretation Comments MCH (test code = MCH) 30.6 pg 27.0-31.0 [facility] HospitalIyndqyXYPTGAYATZ1124-60-75 23:50:0032.9[facility] ZTJPGHUGWN1281-56-46 23:50:0012.4[facility] HospitalXviplqUDAXJPEBOX5398-04-73 23:50:0031[facility] HospitalDoubbdZVZYDJSBDG2511-53-22 23:50:0015.5[facility] HospitalHyyjiqVTJMIDFOJP3499-95-17 23:50:0070.1M[facility] HospitalHEMATOLOGY 2019-06-28 23:50:0022.0[facility] HospitalFcdiziTYBUKTDDDH7226-61-44 23:50:005.6M[facility] HospitalJcdvqmHUVQZLRXZU3321-04-19 23:50:002.0[facility] HSWWRGXBXM7455-39-08 23:50:000.3M[facility] HospitalDztyecXRTIYSOWHM2599-79-91 23:50:006.5[facility] HospitalOqedmcNKDEETVNRY2531-42-03 23:50:[address] [place], [place] [address]AvzsxmDRDQSPPONC6610-61-42 23:50:000.5[facility]HEMATOLOGY 2019-06-28 23:50:000.[address] [place], [place] [address]VjpefpGRDMEOAEEF5993-17-21 23:50:81805PGMethodist McKinney HospitalFcbtrxVLZGBELZHK6123-45-17 23:50:00Negative *NA*(06/28/19 6:50 PM) [facility] HospitalOwynxgMXQHKLXPLD8381-69-16 23:50:00Negative *NA*(06/28/19 6:50 PM)[facility] HospitalGsnrbzPONNKSMAMZ0647-88-57 23:50:00Negative *NA*(06/28/19 6:50 PM)[facility] HospitalOlwoasFMTCTKJYDV5946-56-69 23:50:00Negative *NA*(06/28/19 6:50 PM)[facility] HospitalWmngnrUGVVZDRKVR9211-42-51 23:50:00 Negative *NA*(06/28/19 6:50 PM)[facility] HospitalMETAL2019-10-10 23:50:[address] [place], [place] [address]HEMATOLOGY2019-10-10 01:46:0020[facility] BLOOD BANK FIQDMKG3768-77-59 20:54:00Positive 4(06/27/19 3:54 PM)[facility]CHEM ZZXTH9437-41-32 20:54:47588XQMethodist McKinney HospitalCHEM PANEL 2019-06-27 20:54:0015[facility] HospitalCHEM XDAIP2296-37-91 20:54:000.79[facility]CHEM HNSBF0906-45-59 20:54:37282CIMethodist McKinney HospitalCHEM JNVGZ0879-82-37 20:54:004.0[facility]CHEM QECXT4477-60-05 20:54:00 104[facility] HospitalCHEM TFYRM2751-81-51 20:54:0026[facility] CHEM OUKEA0154-04-44 20:54:0010.5[facility] HospitalCHEM OMPWC4021-64-99 20:54:0076[facility] HospitalCHEM RISFU9099-13-83 20:54:0015.0[facility]2019-10-09 20:54:00* Test Item Value Reference Range Interpretation Comments INR (test code = INR) 0.99 1 0.85-1.17 [facility]2019-10-09 20:54:00* Test Item Value Reference Range Interpretation Comments PT (test code = PT) 12.9 s 12.0-14.7 [facility]2019-10-09 20:54:00* Test Item Value Reference Range Interpretation Comments PTT (test code = PTT) 28.6 s 22.9-35.8 [facility]2019-10-09 20:54:00Normal (06/27/19 3:54 PM)[facility]2019-10-09 20:54:00Normal (06/27/19 3:54 PM)[facility] HospitalCHES SINGLE (PORTABLE)2019-06-14 19:09:00 [place] [address] Patient Name: MOJGAN CUMMINGS MR #: [id number] : 1950 Age/Sex: 69/F Req #: [id number] Adm Physician: Ordered by: CAITLYN MOSS PRODUCTION CLERK Report #: [id number] Location: ER Room/Bed: Procedure: [id number] DX /CHEST SINGLE (PORTABLE) Exam Date: 06/14/19 Exam Ti me: 1845 REPORT STATUS: Signed A single frontal view of the chest. HISTORY: Respiratory distress COMPARI SON: Chest radiograph May 07, 2019 DISCUSSION: Portable techniqu e, limits sensitivity of the exam. Soft tissue attenuation partially limits s ensitivity of the exam. Overlying artifacts. Tubes/Lines: Unchanged tracheo stomy tube. Lungs and pleura: Mild prominence of the central peribronch ial markings. No evidence of a consolidative pneumonia or pulmonary alveolar e kiara. No definite pleural effusion or pneumothorax is identified. Heart a nd mediastinum: The cardiomediastinal silhouette appear(s) unremarkable. Bones and soft tissues: Severe bilateral degenerative changes of the gleno humeral joints. IMPRESSION: 1. Findings which could be seen in the s etting of a nonspecific bronchitis and/or aspiration. 2. No consolidative p neumonia.. Signed by: Madison JoseOFaye, M.M.M. on 06/14/2019 7:11 PM Dictated By: ERIC LANTIGUA DO 10 COPY TO: SMITH MOSS PRODUCTION CLERK Blood Fzwazhz7569-74-82 03:20:00* Test Item Value Reference Range Interpretation Comments Blood Culture (test code = 40025641) NO GROWTH AFTER 5 DAYS, FINAL REPORT [facility] ClubClostridium Difficile Toxin A & B 2019-05-10 13:58:00* Test Item Value Reference Range Interpretation Comments Clostridium Difficile Toxin A & B (test code = 726689029) POSI TIVE NEGATIVE Results called to KOBI MCCLOUD at 1358 on 05/10/19 by Mark Aguirre. RB OK.Results called to TORITO ARCOS in infection control at 1358 on 05/10/19 by Marcdamian Aguirre.Testing on stool aspirate specimens is outside steel roller claims since specimen type not validated on this assay.[facility]olate2019-08-22 11:24:00* Test Item Value Reference Range Interpretation Comments Folate (test code = 2284-8) 29.8 7.0-15.4 [facility] ClubLymphocytes % (Manual)2019-05-10 07:53:00 * Test Item Value Reference Range Interpretation Comments Lymphocytes % (Manual) (test code = 737-7) 30 19-48 [facility] ClubMODIFIED BA. YVDWMBV1935-55-13 16:13:00 [place] [address] Patient Name: MOJGAN CUMMINGS MR #: [id number] : 1950 Age/Sex: 69/F Req #: [id number] Adm Physician: ILAN STEIN MD Ordered by: Pilar Simeon PRODUCTION CLERK Report #: [id number] Location: MED/SURG2 Room/Bed: [facility] Procedure: [id number] DX /MODIFIED BA. SWALLOW Exam Date: 05/09/19 Exam Time: 1030 REPORT STATUS: Signed M odified barium swallow, 05/09/2019. History: Aspiration. Fluoro time : 2.5 min. Dose: 13.2 mGy (WALE) Technique: Fluoroscopy was performed by radiology nurse. A radiologist was not present for exam. Fluoroscopic observati on and imaging of the oral cavity, oropharynx, and hypopharynx was performed i n the lateral projection during swallowing of liquids and solids, administered by speech pathology. See speech pathologist report for findings. Signed by: Caitlyn Burns on 05/09/2019 4:13 PM Dictated By: CAITLYN BURNS MD Gem ctronically Signed By: CAITLYN BURNS MD on 05/09/191612 Transcribed By: ANA Aburto on 05/09/191612 COPY TO: PILAR SIMEON PRODUCTION CLERK US ABDOMEN ROKCDBZY5599-38-96 15:35:00 [place] [address] Patient Name: MOJGAN CUMMINGS MR #: [id number] : 1950 Age/Sex: 69/F Req #: [id number] Adm Physician: ILAN STEIN MD Ordered by: MARK ANTHONY KERNS MD Report #: [id number] Location: MED/SURG2 Room/Bed: [facility] Procedure: [id number] US/US ABDOMEN COMPLETE Exam Date: 05/09/19 Exam Time: 1452 REPORT STATUS: Signed Abdom inal ultrasound. History: Hepatosplenomegaly. Comparison: Prior ult rasound 08/13/2018. Discussion: Transverse and longitudinal images of the a tim were obtained demonstrating a liver of normal size but diffusely increa sed and coarsened echogenicity measuring 16.5 cm in length. There is nodular surface contour without focal hepatic abnormality. The portal vein is patent w ith hepatopetal flow and is within normal limits measuring 11 mm in diameter. The biliary tree is within normal limits with the common bile d uct measuring 7 mm in diameter. The gallbladder contains several shadowing sto lyndon without evidence of wall thickening or pericholecystic fluid. The sonograp hic Rodriguez's sign was negative. The kidneys are normal in size and echogenicity bilaterally without evidence of hydronephrosis, stones, or m ass. The right kidney measures 10.5 cm and the left kidney measures 10.4 cm in length. The spleen is normal in size and appearance measuring 12.1 cm in length. The pancreatic head and body are visualized and are normal in appeara nce. The abdominal aorta and IVC are within normal limits. There is no eviden ce of free fluid. IMPRESSION: 1. Cirrhotic appearing liver. Raymond elate with LFTs. Consider further evaluation with CT abdomen with and without contrast. 2. Cholelithiasis without sonographic evidence of cholecystitis. Signed by: Caitlyn Burns on 05/09/2019 3:45 PM Dictated By: CAITLYN BURNS MD 44 Transcribed By: BAMBI on 05/09/191544 COPY TO: MARK ANTHONY KERNS MD Thyroid Stimulating Hormone (TSH)2019-05-08 06:36:00* Test Item Value Reference Range Interpretation Comments Thyroid Stimulating Hormone (TSH) (test code = 01741-9) 1.678 0.350-4.940 [facility] ClubHemoglobin A1c Syykmbr5043-48-87 05:26:00 * Test Item Value Reference Range Interpretation Comments Hemoglobin A1c Percent (test code = Hemoglobin A1c Percent) 4.6 4.0-7.0 [facility] ClubLipase2019-08-19 03:46:00* Test Item Value Reference Range Interpretation Comments Lipase (test code = 3040-3) < 4 8-78 [facility] ClubUrine BWR3769-01-16 03:45:00* Test Item Value Reference Range Interpretation Comments Urine WBC (test code = 5821-4) 21-50 0-5 [facility] Club[facility] SYW1811-53-75 03:45:00* Test Item Value Reference Range Interpretation Comments Urine RBC (test code = 35134-5) 6-10 0-5 [facility] Exzdbbgz9278-42-70 03:45:00* Test Item Value Reference Range Interpretation Comments Urine Bacteria (test code = 01575-8) MANY NONE [facility] Epithelial Vypps6827-41-04 03:45:00 * Test Item Value Reference Range Interpretation Comments Urine Epithelial Cells (test code = 71929-5) FEW NONE [facility] Amorphous Dfeouulu1107-14-57 03:45:00* Test Item Value Reference Range Interpretation Comments Urine Amorphous Sediment (test code = 8246-1) MODERATE FEW [facility] Club[facility] Staie1704-80-46 03:36:00* Test Item Value Reference Range Interpretation Comments Urine Color (test code = 5778-6) YELLOW YELLOW [facility] Club[facility] Ekpdobu1320-17-24 03:36:00* Test Item Value Reference Range Interpretation Comments Urine Clarity (test code = 08554-3) CLOUDY CLEAR [facility] Specific Frvshxy9940-55-44 03:36:00 * Test Item Value Reference Range Interpretation Comments Urine Specific [place] (test code = 5811-5) 1.015 1.010-1.02 5 [facility] iJ5533-43-17 03:36:00* Test Item Value Reference Range Interpretation Comments Urine pH (test code = 65673-7) 7 5-7 [facility] Leukocyte Xqubcmvi3358-41-13 03:36:00* Test Item Value Reference Range Interpretation Comments Urine Leukocyte Esterase (test code = 46737-4) LARGE NEGATIV E [facility] Zhgmxbg5467-47-94 03:36:00* Test Item Value Reference Range Interpretation Comments Urine Nitrite (test code = 71735-1) POSITIVE NEGATIVE [facility] Evjmzpy3498-12-03 03:36:00* Test Item Value Reference Range Interpretation Comments Urine Protein (test code = 78699-4) NEGATIVE NEGATIVE [facility] Glucose (UA)2019-05-07 03:36:00* Test Item Value Reference Range Interpretation Comments Urine Glucose (UA) (test code = 52581-8) NEGATIVE NEGATIVE [facility] Gwheidq4876-51-70 03:36:00* Test Item Value Reference Range Interpretation Comments Urine Ketones (test code = 30956-3) NEGATIVE NEGATIVE [facility] Bwjguuxmfkif6482-41-07 03:36:00* Test Item Value Reference Range Interpretation Comments Urine Urobilinogen (test code = 53035-2) 0.2 0.2-1 [facility] Xbeysmfit4151-10-82 03:36:00* Test Item Value Reference Range Interpretation Comments Urine Bilirubin (test code = 1977-8) NEGATIVE NEGATIVE [facility] Deurx6635-66-72 03:36:00* Test Item Value Reference Range Interpretation Comments Urine Blood (test code = 17640-1) TRACE NEGATIVE [facility] ClubCHEST SINGLE (PORTABLE)2019-05-07 03:22:00 [facility] [address] [place] [address] Patient Name: MOJGAN CUMMINGS MR #: [id number] : 1950 Age/Sex: 69/F Req #: [id number] Adm Physician: ILAN STEIN MD Ordered by: WILIAM MARTINEZ MD Report #: [id number] Location: [facility] Room/Bed: [place] [address] Procedure: [id number] D X/CHEST SINGLE (PORTABLE) Exam Date: 05/07/19 Exam T rissa: 0310 REPORT STATUS: Signed A single frontal view of the chest. HISTORY: Shortness of breath COMPARI SON: Chest radiograph November 16, 2018 DISCUSSION: Portable techni que, limits sensitivity of the exam. Soft tissue attenuation partially limits sensitivity of the exam. Overlying artifacts. Tubes/Lines: Unchanged trach eostomy tube. Lungs and pleura: Mild right greater than left upper lung scarring versus subsegmental atelectasis. No evidence of a consolidative pneumonia or pulmonary alveolar edema. No definite pleural effusion or pneumot horax is identified. Heart and mediastinum: The cardiomediastinal silho uette appear(s) unremarkable. Bones and soft tissues: Appear unremarkab le, given this limited exam. IMPRESSION: 1. Mild upper lung zone sca rring versus atelectasis. 2. No significant interval change. Signed by: Dr. Eric Lantigua D.O., M.M.M. on 05/07/2019 3:24 AM Dictated B y: ERIC LANTIGUA DO 3 Tr anscribed By: BAMBI on 05/07/19323 COPY TO: WILIAM MARTINEZ MD [id number] 12:50:00* Test Item Value Reference Range Interpretation Comments GLUBED (test code = GLUBED) 87 mg/dL 74-106 N Performed by certified pulping machine operator at [facility]2019-05-07 12:50:00* Test Item Value Reference Range Interpretation Comments GLUBED (test code = GLUBED) 87 mg/dL 74-106 N Performed by certified pulping machine operator at [facility]2019-04-22 12:29:00* Test Item Value Reference Range Interpretation Comments GLUBED (test code = GLUBED) 70 mg/dL 74-106 L Performed by certified pulping machine operator at [facility]2019-04-16 14:40:00* Test Item Value Reference Range Interpretation Comments GLUBED (test code = GLUBED) 85 mg/dL 74-106 N Performed by certified pulping machine operator at [facility]2019-04-16 14:39:00* Test Item Value Reference Range Interpretation Comments GLUBED (test code = GLUBED) 74 mg/dL 74-106 N Performed by certified pulping machine operator at [facility] CHDZNV1073-30-02 14:39:00* Test Item Value Reference Range Interpretation Comments GLUBED (test code = GLUBED) 96 mg/dL 74-106 N Performed by certified pulping machine operator at [facility]2019-04-16 14:39:00* Test Item Value Reference Range Interpretation Comments GLUBED (test code = GLUBED) 83 mg/dL 74-106 N Performed by certified pulping machine operator at [facility]2019-04-16 14:39:00* Test Item Value Reference Range Interpretation Comments GLUBED (test code = GLUBED) 70 mg/dL 74-106 L [facility] certified pulping machine [facility] RehabilitationNotified Nurse~ EQWHJU7526-56-36 14:39:00* Test Item Value Reference Range Interpretation Comments GLUBED (test code = GLUBED) 79 mg/dL 74-106 N Performed by certified pulping machine operator at [facility] YGYMZQ1499-26-69 10:37:00* Test Item Value Reference Range Interpretation Comments GLUBED (test code = GLUBED) 80 mg/dL 74-106 N Performed by certified pulping machine operator at [facility] LIBVWO6252-23-02 10:37:00* Test Item Value Reference Range Interpretation Comments GLUBED (test code = GLUBED) 89 mg/dL 74-106 N Performed by certified pulping machine operator at [facility] HAICDB1108-57-41 10:37:00* Test Item Value Reference Range Interpretation Comments GLUBED (test code = GLUBED) 88 mg/dL 74-106 N Performed by certified pulping machine operator at [facility] VHTDLO3881-87-91 10:36:00* Test Item Value Reference Range Interpretation Comments GLUBED (test code = GLUBED) 76 mg/dL 74-106 N Performed by certified pulping machine operator at [facility] LGHHYY0908-90-76 10:36:00* Test Item Value Reference Range Interpretation Comments GLUBED (test code = GLUBED) 71 mg/dL 74-106 L Performed by certified pulping machine operator at [facility] ZYPEDP6039-56-27 10:35:00* Test Item Value Reference Range Interpretation Comments GLUBED (test code = GLUBED) 82 mg/dL 74-106 N Performed by certified pulping machine operator at [facility] ZRXKRY2163-75-44 16:17:00* Test Item Value Reference Range Interpretation Comments GLUBED (test code = GLUBED) 77 mg/dL 74-106 N Performed by certified pulping machine operator at [facility] PGRIHP5301-19-20 10:29:00* Test Item Value Reference Range Interpretation Comments GLUBED (test code = GLUBED) 78 mg/dL 74-106 N Performed by certified pulping machine operator at [facility] CBC W/MANUAL KSLX3627-04-55 07:41:00* Test Item Value Reference Range Interpretation Comments WHITE BLOOD CELL (test code = WBC) 7.8 K/mm3 4.5-12.5 N RED BLOOD CELL (test code = RBC) 2.66 mill/mm3 3.7-5.2 L HEMOGLOBIN (test code = HGB) 8.1 gram/dL 11.5-15.5 L HEMATOCRIT (test code = HCT) 26.8 % 36.0-46.0 L MEAN CELL VOLUME (test code = MCV) 100.8 fL 80-98 H MEAN CELL HGB (test code = MCH) 30.5 picogram 27.0-33.0 N MEAN CELL HGB CONCETRATION (test code = MCHC) 30.2 gram/dL 33.0-36. 0 L RED CELL DISTRIBUTION WIDTH (test code = RDW) 17.6 % 11.6-16. 2 H RED CELL DISTRIBUTION WIDTH SD (test code = RDW-SD) 63.3 fL 37 .0-51.0 H PLATELET COUNT (test code = PLT) 137 K/mm3 150-450 L MEAN PLATELET VOLUME (test code = MPV) 13.1 fL 6.7-11.0 H IMMATURE GRANULOCYTE % (test code = IG%) 0.6 % 0.0-5.0 N NUCLEATED RBC % (test code = NRBC%) 0.0 % 0-0 N NEUTROPHIL # (test code = NT#) 5.62 K/mm3 1.8-7.7 N IMMATURE GRANULOCYTE # (test code = IG#) 0.05 x10 3/uL 0-0.03 H LYMPHOCYTE # (test code = LY#) 0.96 K/mm3 1.0-5.0 L MONOCYTE # (test code = MO#) 0.89 K/mm3 0-0.8 H EOSINOPHIL # (test code = EO#) 0.21 K/mm3 0.0-0.5 N BASOPHIL # (test code = BA#) 0.02 K/mm3 0.0-0.2 N NUCLEATED RBC # (test code = NRBC#) 0.00 K/mm3 0.0-0.1 N MANUAL DIFF REQUIRED (test code = MDIFF) YES STAIN ACCEPTABILITY (test code = STN ACCEPTABLE) STAIN ACCEPTABLE TOTAL CELLS COUNTED (test code = TCC) 113 #CELLS SEGMENTED NEUTROPHILS (test code = SEG) 81.4 % 39-69 H BAND NEUTROPHIL (test code = BAND) 0 % 0-10 N LYMPHOCYTE (test code = LYMPH) 8.0 % 25-55 L REACTIVE LYMPH (test code = RELYMPH) 0 % MONOCYTE (test code = MON) 5.3 % 0-10 N EOSINOPHIL (test code = EOS) 3.5 % 0.0-5.0 N BASOPHIL (test code = BASO) 1.8 % 0-1.0 H METAMYELOCYTE (test code = META) 0 % 0-0 N MYELOCYTE (test code = MYELO) 0 % 0.0-0.0 N PROMYELOCYTE (test code = PROM) 0 % 0-0 N ANISOCYTOSIS (test code = ANISO) 1+ MACROCYTOSIS (test code = MACR) 1+ TEAR DROP CELLS (test code = TEAR) 1+ PLATELET ESTIMATE (test code = PLTEST) DECREASED PLATELET MORPHOLOGY (test code = PLTMORPH) CLUMPING PRESENT IMMATURE FORMS (test code = IMMAT) 0 % BASIC METABOLIC [id number] 07:01:00* Test Item Value Reference Range Interpretation Comments SODIUM (test code = NA) 141 mmol/L 136-145 N POTASSIUM (test code = K) 4.2 mmol/L 3.5-5.1 N CHLORIDE (test code = CL) 107.0 mmol/L 98-107 N CARBON DIOXIDE (test code = CO2) 28.0 mmol/L 21-32 N ANION GAP (test code = GAP) 10.2 10-20 N GLUCOSE (test code = GLU) 87 mg/dL 74-106 N BLOOD UREA NITROGEN (test code = BUN) 33 mg/dL 7-18 H GLOMERULAR FILTRATION RATE (test code = GFR) > 60 mL/min >=60 Estimated GFR by using Modified MDRD formula.Chronic kidney disease is defined as either kidney damageor GFR <60 mL/min/1.73 m2 for >3 months. CREATININE (test code = CREAT) 0.80 mg/dL 0.55-1.02 N Note change in reference range due to change in reagent. BUN/CREATININE RATIO (test code = BUN/CREA) 41.3 10-20 H CALCIUM (test code = CA) 8.5 mg/dL 8.5-10.1 N [id number] 07:01:00* Test Item Value Reference Range Interpretation Comments MAGNESIUM (test code = MAG) 1.5 mg/dL 1.8-2.4 L BASIC METABOLIC [id number] 06:53:00* Test Item Value Reference Range Interpretation Comments SODIUM (test code = NA) 141 mmol/L 136-145 N POTASSIUM (test code = K) 4.2 mmol/L 3.5-5.1 N CHLORIDE (test code = CL) 107.0 mmol/L 98-107 N CARBON DIOXIDE (test code = CO2) mmol/L 21-32 ANION GAP (test code = GAP) 10-20 GLUCOSE (test code = GLU) mg/dL 74-106 BLOOD UREA NITROGEN (test code = BUN) mg/dL 7-18 GLOMERULAR FILTRATION RATE (test code = GFR) mL/min >=60 CREATININE (test code = CREAT) mg/dL 0.55-1.02 BUN/CREATININE RATIO (test code = BUN/CREA) 10-20 CALCIUM (test code = CA) mg/dL 8.5-10.1 [id number] 06:53:00* Test Item Value Reference Range Interpretation Comments MAGNESIUM (test code = MAG) mg/dL 1.8-2.4 CBC W/MANUAL [id number] 06:43:00* Test Item Value Reference Range Interpretation Comments WHITE BLOOD CELL (test code = WBC) 7.8 K/mm3 4.5-12.5 N RED BLOOD CELL (test code = RBC) 2.66 mill/mm3 3.7-5.2 L HEMOGLOBIN (test code = HGB) 8.1 gram/dL 11.5-15.5 L HEMATOCRIT (test code = HCT) 26.8 % 36.0-46.0 L MEAN CELL VOLUME (test code = MCV) 100.8 fL 80-98 H MEAN CELL HGB (test code = MCH) 30.5 picogram 27.0-33.0 N MEAN CELL HGB CONCETRATION (test code = MCHC) 30.2 gram/dL 33.0-36. 0 L RED CELL DISTRIBUTION WIDTH (test code = RDW) 17.6 % 11.6-16. 2 H RED CELL DISTRIBUTION WIDTH SD (test code = RDW-SD) 63.3 fL 37 .0-51.0 H PLATELET COUNT (test code = PLT) 137 K/mm3 150-450 L MEAN PLATELET VOLUME (test code = MPV) 13.1 fL 6.7-11.0 H IMMATURE GRANULOCYTE % (test code = IG%) 0.6 % 0.0-5.0 N NUCLEATED RBC % (test code = NRBC%) 0.0 % 0-0 N NEUTROPHIL # (test code = NT#) 5.62 K/mm3 1.8-7.7 N IMMATURE GRANULOCYTE # (test code = IG#) 0.05 x10 3/uL 0-0.03 H LYMPHOCYTE # (test code = LY#) 0.96 K/mm3 1.0-5.0 L MONOCYTE # (test code = MO#) 0.89 K/mm3 0-0.8 H EOSINOPHIL # (test code = EO#) 0.21 K/mm3 0.0-0.5 N BASOPHIL # (test code = BA#) 0.02 K/mm3 0.0-0.2 N NUCLEATED RBC # (test code = NRBC#) 0.00 K/mm3 0.0-0.1 N MANUAL DIFF REQUIRED (test code = MDIFF) YES STAIN ACCEPTABILITY (test code = STN ACCEPTABLE) TOTAL CELLS COUNTED (test code = TCC) #CELLS SEGMENTED NEUTROPHILS (test code = SEG) % 39-69 LYMPHOCYTE (test code = LYMPH) % 25-55 MONOCYTE (test code = MON) % 0-10 EOSINOPHIL (test code = EOS) % 0.0-5.0 CABOT RINGS (test code = CAB) MORPHOLOGY COMMENT (test code = MOC) PLATELET ESTIMATE (test code = PLTEST) PLATELET MORPHOLOGY (test code = PLTMORPH) CBC W/MANUAL [id number] 06:43:00* Test Item Value Reference Range Interpretation Comments WHITE BLOOD CELL (test code = WBC) 7.8 K/mm3 4.5-12.5 N RED BLOOD CELL (test code = RBC) 2.66 mill/mm3 3.7-5.2 L HEMOGLOBIN (test code = HGB) 8.1 gram/dL 11.5-15.5 L HEMATOCRIT (test code = HCT) 26.8 % 36.0-46.0 L MEAN CELL VOLUME (test code = MCV) 100.8 fL 80-98 H MEAN CELL HGB (test code = MCH) 30.5 picogram 27.0-33.0 N MEAN CELL HGB CONCETRATION (test code = MCHC) 30.2 gram/dL 33.0-36. 0 L RED CELL DISTRIBUTION WIDTH (test code = RDW) 17.6 % 11.6-16. 2 H RED CELL DISTRIBUTION WIDTH SD (test code = RDW-SD) 63.3 fL 37 .0-51.0 H PLATELET COUNT (test code = PLT) 137 K/mm3 150-450 L MEAN PLATELET VOLUME (test code = MPV) 13.1 fL 6.7-11.0 H IMMATURE GRANULOCYTE % (test code = IG%) 0.6 % 0.0-5.0 N NUCLEATED RBC % (test code = NRBC%) 0.0 % 0-0 N NEUTROPHIL # (test code = NT#) 5.62 K/mm3 1.8-7.7 N IMMATURE GRANULOCYTE # (test code = IG#) 0.05 x10 3/uL 0-0.03 H LYMPHOCYTE # (test code = LY#) 0.96 K/mm3 1.0-5.0 L MONOCYTE # (test code = MO#) 0.89 K/mm3 0-0.8 H EOSINOPHIL # (test code = EO#) 0.21 K/mm3 0.0-0.5 N BASOPHIL # (test code = BA#) 0.02 K/mm3 0.0-0.2 N NUCLEATED RBC # (test code = NRBC#) 0.00 K/mm3 0.0-0.1 N MANUAL DIFF REQUIRED (test code = MDIFF) YES STAIN ACCEPTABILITY (test code = STN ACCEPTABLE) TOTAL CELLS COUNTED (test code = TCC) #CELLS SEGMENTED NEUTROPHILS (test code = SEG) % 39-69 LYMPHOCYTE (test code = LYMPH) % 25-55 MONOCYTE (test code = MON) % 0-10 EOSINOPHIL (test code = EOS) % 0.0-5.0 CABOT RINGS (test code = CAB) MORPHOLOGY COMMENT (test code = MOC) PLATELET ESTIMATE (test code = PLTEST) PLATELET MORPHOLOGY (test code = PLTMORPH) CBC W/MANUAL [id number] 06:43:00* Test Item Value Reference Range Interpretation Comments WHITE BLOOD CELL (test code = WBC) 7.8 K/mm3 4.5-12.5 N RED BLOOD CELL (test code = RBC) 2.66 mill/mm3 3.7-5.2 L HEMOGLOBIN (test code = HGB) 8.1 gram/dL 11.5-15.5 L HEMATOCRIT (test code = HCT) 26.8 % 36.0-46.0 L MEAN CELL VOLUME (test code = MCV) 100.8 fL 80-98 H MEAN CELL HGB (test code = MCH) 30.5 picogram 27.0-33.0 N MEAN CELL HGB CONCETRATION (test code = MCHC) 30.2 gram/dL 33.0-36. 0 L RED CELL DISTRIBUTION WIDTH (test code = RDW) 17.6 % 11.6-16. 2 H RED CELL DISTRIBUTION WIDTH SD (test code = RDW-SD) 63.3 fL 37 .0-51.0 H PLATELET COUNT (test code = PLT) 137 K/mm3 150-450 L MEAN PLATELET VOLUME (test code = MPV) 13.1 fL 6.7-11.0 H IMMATURE GRANULOCYTE % (test code = IG%) 0.6 % 0.0-5.0 N NUCLEATED RBC % (test code = NRBC%) 0.0 % 0-0 N NEUTROPHIL # (test code = NT#) 5.62 K/mm3 1.8-7.7 N IMMATURE GRANULOCYTE # (test code = IG#) 0.05 x10 3/uL 0-0.03 H LYMPHOCYTE # (test code = LY#) 0.96 K/mm3 1.0-5.0 L MONOCYTE # (test code = MO#) 0.89 K/mm3 0-0.8 H EOSINOPHIL # (test code = EO#) 0.21 K/mm3 0.0-0.5 N BASOPHIL # (test code = BA#) 0.02 K/mm3 0.0-0.2 N NUCLEATED RBC # (test code = NRBC#) 0.00 K/mm3 0.0-0.1 N MANUAL DIFF REQUIRED (test code = MDIFF) YES STAIN ACCEPTABILITY (test code = STN ACCEPTABLE) TOTAL CELLS COUNTED (test code = TCC) #CELLS SEGMENTED NEUTROPHILS (test code = SEG) % 39-69 LYMPHOCYTE (test code = LYMPH) % 25-55 MONOCYTE (test code = MON) % 0-10 EOSINOPHIL (test code = EOS) % 0.0-5.0 MORPHOLOGY COMMENT (test code = MOC) PLATELET ESTIMATE (test code = PLTEST) PLATELET MORPHOLOGY (test code = PLTMORPH) CBC W/MANUAL [id number] 06:43:00* Test Item Value Reference Range Interpretation Comments WHITE BLOOD CELL (test code = WBC) 7.8 K/mm3 4.5-12.5 N RED BLOOD CELL (test code = RBC) 2.66 mill/mm3 3.7-5.2 L HEMOGLOBIN (test code = HGB) 8.1 gram/dL 11.5-15.5 L HEMATOCRIT (test code = HCT) 26.8 % 36.0-46.0 L MEAN CELL VOLUME (test code = MCV) 100.8 fL 80-98 H MEAN CELL HGB (test code = MCH) 30.5 picogram 27.0-33.0 N MEAN CELL HGB CONCETRATION (test code = MCHC) 30.2 gram/dL 33.0-36. 0 L RED CELL DISTRIBUTION WIDTH (test code = RDW) 17.6 % 11.6-16. 2 H RED CELL DISTRIBUTION WIDTH SD (test code = RDW-SD) 63.3 fL 37 .0-51.0 H PLATELET COUNT (test code = PLT) 137 K/mm3 150-450 L MEAN PLATELET VOLUME (test code = MPV) 13.1 fL 6.7-11.0 H IMMATURE GRANULOCYTE % (test code = IG%) 0.6 % 0.0-5.0 N NUCLEATED RBC % (test code = NRBC%) 0.0 % 0-0 N NEUTROPHIL # (test code = NT#) 5.62 K/mm3 1.8-7.7 N IMMATURE GRANULOCYTE # (test code = IG#) 0.05 x10 3/uL 0-0.03 H LYMPHOCYTE # (test code = LY#) 0.96 K/mm3 1.0-5.0 L MONOCYTE # (test code = MO#) 0.89 K/mm3 0-0.8 H EOSINOPHIL # (test code = EO#) 0.21 K/mm3 0.0-0.5 N BASOPHIL # (test code = BA#) 0.02 K/mm3 0.0-0.2 N NUCLEATED RBC # (test code = NRBC#) 0.00 K/mm3 0.0-0.1 N MANUAL DIFF REQUIRED (test code = MDIFF) YES STAIN ACCEPTABILITY (test code = STN ACCEPTABLE) TOTAL CELLS COUNTED (test code = TCC) #CELLS SEGMENTED NEUTROPHILS (test code = SEG) % 39-69 LYMPHOCYTE (test code = LYMPH) % 25-55 MONOCYTE (test code = MON) % 0-10 MORPHOLOGY COMMENT (test code = MOC) PLATELET ESTIMATE (test code = PLTEST) PLATELET MORPHOLOGY (test code = PLTMORPH) CBC W/MANUAL [id number] 06:43:00* Test Item Value Reference Range Interpretation Comments WHITE BLOOD CELL (test code = WBC) 7.8 K/mm3 4.5-12.5 N RED BLOOD CELL (test code = RBC) 2.66 mill/mm3 3.7-5.2 L HEMOGLOBIN (test code = HGB) 8.1 gram/dL 11.5-15.5 L HEMATOCRIT (test code = HCT) 26.8 % 36.0-46.0 L MEAN CELL VOLUME (test code = MCV) 100.8 fL 80-98 H MEAN CELL HGB (test code = MCH) 30.5 picogram 27.0-33.0 N MEAN CELL HGB CONCETRATION (test code = MCHC) 30.2 gram/dL 33.0-36. 0 L RED CELL DISTRIBUTION WIDTH (test code = RDW) 17.6 % 11.6-16. 2 H RED CELL DISTRIBUTION WIDTH SD (test code = RDW-SD) 63.3 fL 37 .0-51.0 H PLATELET COUNT (test code = PLT) 137 K/mm3 150-450 L MEAN PLATELET VOLUME (test code = MPV) 13.1 fL 6.7-11.0 H IMMATURE GRANULOCYTE % (test code = IG%) 0.6 % 0.0-5.0 N NUCLEATED RBC % (test code = NRBC%) 0.0 % 0-0 N NEUTROPHIL # (test code = NT#) 5.62 K/mm3 1.8-7.7 N IMMATURE GRANULOCYTE # (test code = IG#) 0.05 x10 3/uL 0-0.03 H LYMPHOCYTE # (test code = LY#) 0.96 K/mm3 1.0-5.0 L MONOCYTE # (test code = MO#) 0.89 K/mm3 0-0.8 H EOSINOPHIL # (test code = EO#) 0.21 K/mm3 0.0-0.5 N BASOPHIL # (test code = BA#) 0.02 K/mm3 0.0-0.2 N NUCLEATED RBC # (test code = NRBC#) 0.00 K/mm3 0.0-0.1 N MANUAL DIFF REQUIRED (test code = MDIFF) YES STAIN ACCEPTABILITY (test code = STN ACCEPTABLE) TOTAL CELLS COUNTED (test code = TCC) #CELLS SEGMENTED NEUTROPHILS (test code = SEG) % 39-69 LYMPHOCYTE (test code = LYMPH) % 25-55 MONOCYTE (test code = MON) % 0-10 EOSINOPHIL (test code = EOS) % 0.0-5.0 CABOT RINGS (test code = CAB) MORPHOLOGY COMMENT (test code = MOC) PLATELET ESTIMATE (test code = PLTEST) PLATELET MORPHOLOGY (test code = PLTMORPH) [id number] 17:26:00* Test Item Value Reference Range Interpretation Comments GLUBED (test code = GLUBED) 87 mg/dL 74-106 N Performed by certified pulping machine operator at [facility] - XR ABDOMEN AP 1 [id number] 14:29:00 FAX: Ilan Holt MD [place]: B St: DIS FAX: Elissa Childers [phone] Name: MOJGAN CUMMINGS [facility] : 1950 Age/S: 68/F [address] [facility] Unit #: [id number] Loc: [place] [address] Phys: Elissa Childers Acct: [id number] Dis Date: Status: DIS IN PHONE #: [phone] Exam Date: 12/25/2018 1345 FAX #: [phone] Reason: r/o ileus EXAMS: CPT CODE: [id number] XR ABDOMEN AP 1 V 63102 HISTORY: Pain. Single view chest: COMPARISON: December 22, 2018. Tracheostomy tube and right central line are unchanged. No acute infiltrates, effusion or congestion. Scarring. Cardiomegaly. IMPRESSION: No acute infiltrates, effusion or congestion. Dependent changes. Single view abdomen: No bowel obstruction. Bowel gas pattern is within normal limits. IMPRESSION: No bowel obstruction. Normal bowel gas pattern. Chronic old fracture deformity dislocation of the left hip. at 1426 Reported and signed by: Clem Grissom M.D. CC: Ilan Stein; Elissa Childers Technologist: RADHA LOCKETT RT(R) Trnscrd Date/Time/By: 12/25/2018 (6896) : By: [email or web address] Orig Print D/T: S: 12/25/2018 (7524) PAGE 1 Signed Report - XR ABDOMEN AP 1 [id number] 14:29:00 FAX: Ilan Holt MD [place]: St: ADM FAX: Elissa Childers [phone] Name: MOJGAN CUMMINGS [facility] : 1950 Age/S: 68/F [address] [facility] Unit #: [id number] Loc: [place] [address] Phys: Elissa Childers Acct: [id number] Dis Date: Status: ADM IN PHONE #: [phone] Exam Date: 12/25/2018 1345 FAX #: [phone] Reason: r/o ileus EXAMS: CPT CODE: [id number] XR ABDOMEN AP 1 V 11763 HISTORY: Pain. Single view chest: CO MPARISON: December 22, 2018. Tracheostomy tube and right central line are unchanged. No acute infiltrates, effusion or congestion. Scarring. Car diomegaly. IMPRESSION: No acute infiltrates, e ffusion or congestion. Dependent changes. Single vie w abdomen: No bowel obstruction. Bowel gas pattern is within n ormal limits. IMPRESSION: No bowel obstructi on. Normal bowel gas pattern. Chronic old fracture deformity d islocation of the left hip. at 1425 Reported and signed by: Clem mccoy M.D. CC: Ilan Stein; Elissa Childers Technologist: RADHA ALEXANDRA(Ivan) Trns crd Date/Time/By: 12/25/2018 (4719) : By: [email or web address] Orig Print D/T: S: 12/25/2018 (9288) PAGE 1 Signed Report - XR ABDOMEN AP 1 [id number] 14:29:00 FAX: Ilan Holt MD [place]: B St: DIS FAX: Elissa Childers [phone] Name: MOJGAN CUMMINGS [facility] : 1950 Age/S: 68/F [address] [facility] Unit #: [id number] Loc: [place] [address] Phys: Elissa Childers Acct: [id number] Dis Date: Status: DIS IN PHONE #: [phone] Exam Date: 12/25/2018 1345 FAX #: [phone] Reason: r/o ileus EXAMS: CPT CODE: [id number] XR ABDOMEN AP 1 V 14072 HISTORY: Pain. Single view chest: CO MPARISON: December 22, 2018. Tracheostomy tube and right central line are unchanged. No acute infiltrates, effusion or congestion. Scarring. Car diomegaly. IMPRESSION: No acute infiltrates, e ffusion or congestion. Dependent changes. Single vie w abdomen: No bowel obstruction. Bowel gas pattern is within n ormal limits. IMPRESSION: No bowel obstructi on. Normal bowel gas pattern. Chronic old fracture deformity d islocation of the left hip. at 1682 Reported and signed by: Clem mccoy M.D. CC: Ilan Stein; Elissa Childers Technologist: RADHA ALEXANDRA(Ivan) Trns crd Date/Time/By: 12/25/2018 (6331) : By: [email or web address] Orig Print D/T: S: 12/25/2018 (4458) PAGE 1 Signed Report - XR CHEST 1 [id number] 14:29:00 FAX: Ilan Holt MD [place]: B St: DIS FAX: Elissa Childers [phone] Name: MOJGAN CUMMINGS [facility] : 1950 Age/S: 68/F [address] [facility] Unit #: [id number] Loc: [place] [address] Phys: Elissa Childers Acct: [id number] Dis Date: Status: DIS IN PHONE #: [phone] Exam Date: 12/25/2018 1345 FAX #: [phone] Reason: check resp status EXAMS: CPT CODE: [id number] XR CHEST 1 V 91516 HISTORY: Pain. Single view chest: CO MPARISON: December 22, 2018. Tracheostomy tube and right central line are unchanged. No acute infiltrates, effusion or congestion. Scarring. Car diomegaly. IMPRESSION: No acute infiltrates, e ffusion or congestion. Dependent changes. Single vie w abdomen: No bowel obstruction. Bowel gas pattern is within n ormal limits. IMPRESSION: No bowel obstructi on. Normal bowel gas pattern. Chronic old fracture deformity d islocation of the left hip. at 1427 Reported and signed by: Clem mccoy M.D. CC: Ilan Stein; Elissa Childers Technologist: RADHA CHAO) [facility] Date/Time/By: 12/25/2018 (6596) : By: [email or web address] Orig Print D/T: S: 12/25/2018 (6357) PAGE 1 Signed Report - XR CHEST 1 [id number] 14:29:00 FAX: Ilan Holt MD [place]: St: ADM FAX: Elissa Childers [phone] Name: ZOILAMOJGAN MOLINA [facility] : 1950 Age/S: 68/F [address] [facility] Unit #: [id number] Loc: [place] [address] Phys: Elissa Childers Acct: [id number] Dis Date: Status: ADM IN PHONE #: [phone] Exam Date: 12/25/2018 1345 FAX #: [phone] Reason: check resp status EXAMS: CPT CODE: [id number] XR CHEST 1 V 46835 HISTORY: Pain. Single view chest: CO MPARISON: December 22, 2018. Tracheostomy tube and right central line are unchanged. No acute infiltrates, effusion or congestion. Scarring. Car diomegaly. IMPRESSION: No acute infiltrates, e ffusion or congestion. Dependent changes. Single vie w abdomen: No bowel obstruction. Bowel gas pattern is within n ormal limits. IMPRESSION: No bowel obstructi on. Normal bowel gas pattern. Chronic old fracture deformity d islocation of the left hip. at 1427 Reported and signed by: Clem mccoy M.D. CC: Ilan Stein; Elissa Childers Technologist: RADHA LOCKETT RTInesR) Trns crd Date/Time/By: 12/25/2018 (3012) : By: [email or web address] Orig Print D/T: S: 12/25/2018 (6454) PAGE 1 Signed Report - XR CHEST 1 [id number] 14:29:00 FAX: Ilan Holt MD [place]: St: DIS FAX: Elissa Childers [phone] Name: MOJGAN CUMMINGS MOLINA [facility] : 1950 Age/S: 68/F [address] [facility] Unit #: [id number] Loc: [place] [address] Phys: Elissa Childers Acct: [id number] Dis Date: Status: DIS IN PHONE #: [phone] Exam Date: 12/25/2018 1345 FAX #: [phone] Reason: check resp status EXAMS: CPT CODE: [id number] XR CHEST 1 V 29802 HISTORY: Pain. Single view chest: CO MPARISON: December 22, 2018. Tracheostomy tube and right central line are unchanged. No acute infiltrates, effusion or congestion. Scarring. Car diomegaly. IMPRESSION: No acute infiltrates, e ffusion or congestion. Dependent changes. Single vie w abdomen: No bowel obstruction. Bowel gas pattern is within n ormal limits. IMPRESSION: No bowel obstructi on. Normal bowel gas pattern. Chronic old fracture deformity d islocation of the left hip. at 1429 Reported and signed by: Clem mccoy M.D. CC: Ilan Stein; Elissa Childers Technologist: RADHA CHAO) [facility] crd Date/Time/By: 12/25/2018 (2491) : By: [email or web address] Orig Print D/T: S: 12/25/2018 (3224) PAGE 1 Signed Report CBC W/AUTO [id number] 06:33:00* Test Item Value Reference Range Interpretation Comments WHITE BLOOD CELL (test code = WBC) 8.4 K/mm3 4.5-12.5 N RED BLOOD CELL (test code = RBC) 2.47 mill/mm3 3.7-5.2 L HEMOGLOBIN (test code = HGB) 7.2 gram/dL 11.5-15.5 L HEMATOCRIT (test code = HCT) 24.5 % 36.0-46.0 L MEAN CELL VOLUME (test code = MCV) 99.2 fL 80-98 H MEAN CELL HGB (test code = MCH) 29.1 picogram 27.0-33.0 N MEAN CELL HGB CONCETRATION (test code = MCHC) 29.4 gram/dL 33.0-36. 0 L RED CELL DISTRIBUTION WIDTH (test code = RDW) 17.9 % 11.6-16. 2 H RED CELL DISTRIBUTION WIDTH SD (test code = RDW-SD) 63.9 fL 37 .0-51.0 H PLATELET COUNT (test code = PLT) 142 K/mm3 150-450 L MEAN PLATELET VOLUME (test code = MPV) 12.8 fL 6.7-11.0 H NEUTROPHIL % (test code = NT%) 76.2 % 39.0-69.0 H IMMATURE GRANULOCYTE % (test code = IG%) 0.8 % 0.0-5.0 N LYMPHOCYTE % (test code = LY%) 9.9 % 25.0-55.0 L MONOCYTE % (test code = MO%) 10.6 % 0.0-10.0 H EOSINOPHIL % (test code = EO%) 2.3 % 0.0-5.0 N BASOPHIL % (test code = BA%) 0.2 % 0.0-1.0 N NUCLEATED RBC % (test code = NRBC%) 0.0 % 0-0 N NEUTROPHIL # (test code = NT#) 6.38 K/mm3 1.8-7.7 N IMMATURE GRANULOCYTE # (test code = IG#) 0.07 x10 3/uL 0-0.03 H LYMPHOCYTE # (test code = LY#) 0.83 K/mm3 1.0-5.0 L MONOCYTE # (test code = MO#) 0.89 K/mm3 0-0.8 H EOSINOPHIL # (test code = EO#) 0.19 K/mm3 0.0-0.5 N BASOPHIL # (test code = BA#) 0.02 K/mm3 0.0-0.2 N NUCLEATED RBC # (test code = NRBC#) 0.00 K/mm3 0.0-0.1 N MANUAL DIFF REQUIRED (test code = MDIFF) NO, ONLY SCAN NEEDED DIFFERENTIAL [id number] 06:33:00* Test Item Value Reference Range Interpretation Comments STAIN ACCEPTABILITY (test code = STN ACCEPTABLE) STAIN ACCEPTABLE ANISOCYTOSIS (test code = ANISO) 1+ MACROCYTOSIS (test code = MACR) 1+ PLATELET ESTIMATE (test code = PLTEST) ADEQUATE PLATELET MORPHOLOGY (test code = PLTMORPH) SIZE VARIABLE BASIC METABOLIC [id number] 06:13:00* Test Item Value Reference Range Interpretation Comments SODIUM (test code = NA) 140 mmol/L 136-145 N POTASSIUM (test code = K) 3.9 mmol/L 3.5-5.1 N CHLORIDE (test code = CL) 106.0 mmol/L 98-107 N CARBON DIOXIDE (test code = CO2) 28.0 mmol/L 21-32 N ANION GAP (test code = GAP) 9.9 10-20 L GLUCOSE (test code = GLU) 102 mg/dL 74-106 N BLOOD UREA NITROGEN (test code = BUN) 31 mg/dL 7-18 H GLOMERULAR FILTRATION RATE (test code = GFR) > 60 mL/min >=60 Estimated GFR by using Modified MDRD formula.Chronic kidney disease is defined as either kidney damageor GFR <60 mL/min/1.73 m2 for >3 months. CREATININE (test code = CREAT) 0.80 mg/dL 0.55-1.02 N Note change in reference range due to change in reagent. BUN/CREATININE RATIO (test code = BUN/CREA) 38.8 10-20 H CALCIUM (test code = CA) 8.3 mg/dL 8.5-10.1 L [id number] 06:02:00* Test Item Value Reference Range Interpretation Comments GLUBED (test code = GLUBED) 95 mg/dL 74-106 N Performed by certified pulping machine operator at [facility] CBC W/AUTO [id number] 05:20:00* Test Item Value Reference Range Interpretation Comments WHITE BLOOD CELL (test code = WBC) 8.4 K/mm3 4.5-12.5 N RED BLOOD CELL (test code = RBC) 2.47 mill/mm3 3.7-5.2 L HEMOGLOBIN (test code = HGB) 7.2 gram/dL 11.5-15.5 L HEMATOCRIT (test code = HCT) 24.5 % 36.0-46.0 L MEAN CELL VOLUME (test code = MCV) 99.2 fL 80-98 H MEAN CELL HGB (test code = MCH) 29.1 picogram 27.0-33.0 N MEAN CELL HGB CONCETRATION (test code = MCHC) 29.4 gram/dL 33.0-36. 0 L RED CELL DISTRIBUTION WIDTH (test code = RDW) 17.9 % 11.6-16. 2 H RED CELL DISTRIBUTION WIDTH SD (test code = RDW-SD) 63.9 fL 37 .0-51.0 H PLATELET COUNT (test code = PLT) 142 K/mm3 150-450 L MEAN PLATELET VOLUME (test code = MPV) 12.8 fL 6.7-11.0 H NEUTROPHIL % (test code = NT%) 76.2 % 39.0-69.0 H IMMATURE GRANULOCYTE % (test code = IG%) 0.8 % 0.0-5.0 N LYMPHOCYTE % (test code = LY%) 9.9 % 25.0-55.0 L MONOCYTE % (test code = MO%) 10.6 % 0.0-10.0 H EOSINOPHIL % (test code = EO%) 2.3 % 0.0-5.0 N BASOPHIL % (test code = BA%) 0.2 % 0.0-1.0 N NUCLEATED RBC % (test code = NRBC%) 0.0 % 0-0 N NEUTROPHIL # (test code = NT#) 6.38 K/mm3 1.8-7.7 N IMMATURE GRANULOCYTE # (test code = IG#) 0.07 x10 3/uL 0-0.03 H LYMPHOCYTE # (test code = LY#) 0.83 K/mm3 1.0-5.0 L MONOCYTE # (test code = MO#) 0.89 K/mm3 0-0.8 H EOSINOPHIL # (test code = EO#) 0.19 K/mm3 0.0-0.5 N BASOPHIL # (test code = BA#) 0.02 K/mm3 0.0-0.2 N NUCLEATED RBC # (test code = NRBC#) 0.00 K/mm3 0.0-0.1 N MANUAL DIFF REQUIRED (test code = MDIFF) NO, ONLY SCAN NEEDED DIFFERENTIAL [id number] 05:20:00* Test Item Value Reference Range Interpretation Comments STAIN ACCEPTABILITY (test code = STN ACCEPTABLE) CABOT RINGS (test code = CAB) MORPHOLOGY COMMENT (test code = MOC) PLATELET ESTIMATE (test code = PLTEST) PLATELET MORPHOLOGY (test code = PLTMORPH) CBC W/AUTO [id number] 05:20:00* Test Item Value Reference Range Interpretation Comments WHITE BLOOD CELL (test code = WBC) 8.4 K/mm3 4.5-12.5 N RED BLOOD CELL (test code = RBC) 2.47 mill/mm3 3.7-5.2 L HEMOGLOBIN (test code = HGB) 7.2 gram/dL 11.5-15.5 L HEMATOCRIT (test code = HCT) 24.5 % 36.0-46.0 L MEAN CELL VOLUME (test code = MCV) 99.2 fL 80-98 H MEAN CELL HGB (test code = MCH) 29.1 picogram 27.0-33.0 N MEAN CELL HGB CONCETRATION (test code = MCHC) 29.4 gram/dL 33.0-36. 0 L RED CELL DISTRIBUTION WIDTH (test code = RDW) 17.9 % 11.6-16. 2 H RED CELL DISTRIBUTION WIDTH SD (test code = RDW-SD) 63.9 fL 37 .0-51.0 H PLATELET COUNT (test code = PLT) 142 K/mm3 150-450 L MEAN PLATELET VOLUME (test code = MPV) 12.8 fL 6.7-11.0 H NEUTROPHIL % (test code = NT%) 76.2 % 39.0-69.0 H IMMATURE GRANULOCYTE % (test code = IG%) 0.8 % 0.0-5.0 N LYMPHOCYTE % (test code = LY%) 9.9 % 25.0-55.0 L MONOCYTE % (test code = MO%) 10.6 % 0.0-10.0 H EOSINOPHIL % (test code = EO%) 2.3 % 0.0-5.0 N BASOPHIL % (test code = BA%) 0.2 % 0.0-1.0 N NUCLEATED RBC % (test code = NRBC%) 0.0 % 0-0 N NEUTROPHIL # (test code = NT#) 6.38 K/mm3 1.8-7.7 N IMMATURE GRANULOCYTE # (test code = IG#) 0.07 x10 3/uL 0-0.03 H LYMPHOCYTE # (test code = LY#) 0.83 K/mm3 1.0-5.0 L MONOCYTE # (test code = MO#) 0.89 K/mm3 0-0.8 H EOSINOPHIL # (test code = EO#) 0.19 K/mm3 0.0-0.5 N BASOPHIL # (test code = BA#) 0.02 K/mm3 0.0-0.2 N NUCLEATED RBC # (test code = NRBC#) 0.00 K/mm3 0.0-0.1 N MANUAL DIFF REQUIRED (test code = MDIFF) NO, ONLY SCAN NEEDED DIFFERENTIAL [id number] 05:20:00* Test Item Value Reference Range Interpretation Comments STAIN ACCEPTABILITY (test code = STN ACCEPTABLE) CABOT RINGS (test code = CAB) MORPHOLOGY COMMENT (test code = MOC) PLATELET ESTIMATE (test code = PLTEST) PLATELET MORPHOLOGY (test code = PLTMORPH) CBC W/AUTO [id number] 05:20:00* Test Item Value Reference Range Interpretation Comments WHITE BLOOD CELL (test code = WBC) 8.4 K/mm3 4.5-12.5 N RED BLOOD CELL (test code = RBC) 2.47 mill/mm3 3.7-5.2 L HEMOGLOBIN (test code = HGB) 7.2 gram/dL 11.5-15.5 L HEMATOCRIT (test code = HCT) 24.5 % 36.0-46.0 L MEAN CELL VOLUME (test code = MCV) 99.2 fL 80-98 H MEAN CELL HGB (test code = MCH) 29.1 picogram 27.0-33.0 N MEAN CELL HGB CONCETRATION (test code = MCHC) 29.4 gram/dL 33.0-36. 0 L RED CELL DISTRIBUTION WIDTH (test code = RDW) 17.9 % 11.6-16. 2 H RED CELL DISTRIBUTION WIDTH SD (test code = RDW-SD) 63.9 fL 37 .0-51.0 H PLATELET COUNT (test code = PLT) 142 K/mm3 150-450 L MEAN PLATELET VOLUME (test code = MPV) 12.8 fL 6.7-11.0 H NEUTROPHIL % (test code = NT%) 76.2 % 39.0-69.0 H IMMATURE GRANULOCYTE % (test code = IG%) 0.8 % 0.0-5.0 N LYMPHOCYTE % (test code = LY%) 9.9 % 25.0-55.0 L MONOCYTE % (test code = MO%) 10.6 % 0.0-10.0 H EOSINOPHIL % (test code = EO%) 2.3 % 0.0-5.0 N BASOPHIL % (test code = BA%) 0.2 % 0.0-1.0 N NUCLEATED RBC % (test code = NRBC%) 0.0 % 0-0 N NEUTROPHIL # (test code = NT#) 6.38 K/mm3 1.8-7.7 N IMMATURE GRANULOCYTE # (test code = IG#) 0.07 x10 3/uL 0-0.03 H LYMPHOCYTE # (test code = LY#) 0.83 K/mm3 1.0-5.0 L MONOCYTE # (test code = MO#) 0.89 K/mm3 0-0.8 H EOSINOPHIL # (test code = EO#) 0.19 K/mm3 0.0-0.5 N BASOPHIL # (test code = BA#) 0.02 K/mm3 0.0-0.2 N NUCLEATED RBC # (test code = NRBC#) 0.00 K/mm3 0.0-0.1 N MANUAL DIFF REQUIRED (test code = MDIFF) NO, ONLY SCAN NEEDED DIFFERENTIAL [id number] 05:20:00* Test Item Value Reference Range Interpretation Comments STAIN ACCEPTABILITY (test code = STN ACCEPTABLE) MORPHOLOGY COMMENT (test code = MOC) PLATELET ESTIMATE (test code = PLTEST) PLATELET MORPHOLOGY (test code = PLTMORPH) CBC W/AUTO [id number] 05:20:00* Test Item Value Reference Range Interpretation Comments WHITE BLOOD CELL (test code = WBC) 8.4 K/mm3 4.5-12.5 N RED BLOOD CELL (test code = RBC) 2.47 mill/mm3 3.7-5.2 L HEMOGLOBIN (test code = HGB) 7.2 gram/dL 11.5-15.5 L HEMATOCRIT (test code = HCT) 24.5 % 36.0-46.0 L MEAN CELL VOLUME (test code = MCV) 99.2 fL 80-98 H MEAN CELL HGB (test code = MCH) 29.1 picogram 27.0-33.0 N MEAN CELL HGB CONCETRATION (test code = MCHC) 29.4 gram/dL 33.0-36. 0 L RED CELL DISTRIBUTION WIDTH (test code = RDW) 17.9 % 11.6-16. 2 H RED CELL DISTRIBUTION WIDTH SD (test code = RDW-SD) 63.9 fL 37 .0-51.0 H PLATELET COUNT (test code = PLT) 142 K/mm3 150-450 L MEAN PLATELET VOLUME (test code = MPV) 12.8 fL 6.7-11.0 H NEUTROPHIL % (test code = NT%) 76.2 % 39.0-69.0 H IMMATURE GRANULOCYTE % (test code = IG%) 0.8 % 0.0-5.0 N LYMPHOCYTE % (test code = LY%) 9.9 % 25.0-55.0 L MONOCYTE % (test code = MO%) 10.6 % 0.0-10.0 H EOSINOPHIL % (test code = EO%) 2.3 % 0.0-5.0 N BASOPHIL % (test code = BA%) 0.2 % 0.0-1.0 N NUCLEATED RBC % (test code = NRBC%) 0.0 % 0-0 N NEUTROPHIL # (test code = NT#) 6.38 K/mm3 1.8-7.7 N IMMATURE GRANULOCYTE # (test code = IG#) 0.07 x10 3/uL 0-0.03 H LYMPHOCYTE # (test code = LY#) 0.83 K/mm3 1.0-5.0 L MONOCYTE # (test code = MO#) 0.89 K/mm3 0-0.8 H EOSINOPHIL # (test code = EO#) 0.19 K/mm3 0.0-0.5 N BASOPHIL # (test code = BA#) 0.02 K/mm3 0.0-0.2 N NUCLEATED RBC # (test code = NRBC#) 0.00 K/mm3 0.0-0.1 N MANUAL DIFF REQUIRED (test code = MDIFF) NO, ONLY SCAN NEEDED DIFFERENTIAL [id number] 05:20:00* Test Item Value Reference Range Interpretation Comments STAIN ACCEPTABILITY (test code = STN ACCEPTABLE) CABOT RINGS (test code = CAB) MORPHOLOGY COMMENT (test code = MOC) PLATELET ESTIMATE (test code = PLTEST) PLATELET MORPHOLOGY (test code = PLTMORPH) CBC W/AUTO [id number] 14:20:00* Test Item Value Reference Range Interpretation Comments WHITE BLOOD CELL (test code = WBC) 7.8 K/mm3 4.5-12.5 N RED BLOOD CELL (test code = RBC) 2.60 mill/mm3 3.7-5.2 L HEMOGLOBIN (test code = HGB) 7.5 gram/dL 11.5-15.5 L HEMATOCRIT (test code = HCT) 25.4 % 36.0-46.0 L MEAN CELL VOLUME (test code = MCV) 97.7 fL 80-98 N MEAN CELL HGB (test code = MCH) 28.8 picogram 27.0-33.0 N MEAN CELL HGB CONCETRATION (test code = MCHC) 29.5 gram/dL 33.0-36. 0 L RED CELL DISTRIBUTION WIDTH (test code = RDW) 18.3 % 11.6-16. 2 H RED CELL DISTRIBUTION WIDTH SD (test code = RDW-SD) 63.7 fL 37 .0-51.0 H PLATELET COUNT (test code = PLT) 171 K/mm3 150-450 N MEAN PLATELET VOLUME (test code = MPV) 13.0 fL 6.7-11.0 H NEUTROPHIL % (test code = NT%) 72.5 % 39.0-69.0 H IMMATURE GRANULOCYTE % (test code = IG%) 0.8 % 0.0-5.0 N LYMPHOCYTE % (test code = LY%) 12.5 % 25.0-55.0 L MONOCYTE % (test code = MO%) 12.2 % 0.0-10.0 H EOSINOPHIL % (test code = EO%) 1.7 % 0.0-5.0 N BASOPHIL % (test code = BA%) 0.3 % 0.0-1.0 N NUCLEATED RBC % (test code = NRBC%) 0.0 % 0-0 N NEUTROPHIL # (test code = NT#) 5.63 K/mm3 1.8-7.7 N IMMATURE GRANULOCYTE # (test code = IG#) 0.06 x10 3/uL 0-0.03 H LYMPHOCYTE # (test code = LY#) 0.97 K/mm3 1.0-5.0 L MONOCYTE # (test code = MO#) 0.95 K/mm3 0-0.8 H EOSINOPHIL # (test code = EO#) 0.13 K/mm3 0.0-0.5 N BASOPHIL # (test code = BA#) 0.02 K/mm3 0.0-0.2 N NUCLEATED RBC # (test code = NRBC#) 0.00 K/mm3 0.0-0.1 N MANUAL DIFF REQUIRED (test code = MDIFF) NO, ONLY SCAN NEEDED DIFFERENTIAL [id number] 14:20:00* Test Item Value Reference Range Interpretation Comments STAIN ACCEPTABILITY (test code = STN ACCEPTABLE) STAIN ACCEPTABLE HYPOCHROMIA (test code = HYPO) 2+ PLATELET ESTIMATE (test code = PLTEST) ADEQUATE PLATELET MORPHOLOGY (test code = PLTMORPH) SIZE VARIABLE CBC W/AUTO [id number] 08:42:00* Test Item Value Reference Range Interpretation Comments WHITE BLOOD CELL (test code = WBC) 7.8 K/mm3 4.5-12.5 N RED BLOOD CELL (test code = RBC) 2.60 mill/mm3 3.7-5.2 L HEMOGLOBIN (test code = HGB) 7.5 gram/dL 11.5-15.5 L HEMATOCRIT (test code = HCT) 25.4 % 36.0-46.0 L MEAN CELL VOLUME (test code = MCV) 97.7 fL 80-98 N MEAN CELL HGB (test code = MCH) 28.8 picogram 27.0-33.0 N MEAN CELL HGB CONCETRATION (test code = MCHC) 29.5 gram/dL 33.0-36. 0 L RED CELL DISTRIBUTION WIDTH (test code = RDW) 18.3 % 11.6-16. 2 H RED CELL DISTRIBUTION WIDTH SD (test code = RDW-SD) 63.7 fL 37 .0-51.0 H PLATELET COUNT (test code = PLT) 171 K/mm3 150-450 N MEAN PLATELET VOLUME (test code = MPV) 13.0 fL 6.7-11.0 H NEUTROPHIL % (test code = NT%) 72.5 % 39.0-69.0 H IMMATURE GRANULOCYTE % (test code = IG%) 0.8 % 0.0-5.0 N LYMPHOCYTE % (test code = LY%) 12.5 % 25.0-55.0 L MONOCYTE % (test code = MO%) 12.2 % 0.0-10.0 H EOSINOPHIL % (test code = EO%) 1.7 % 0.0-5.0 N BASOPHIL % (test code = BA%) 0.3 % 0.0-1.0 N NUCLEATED RBC % (test code = NRBC%) 0.0 % 0-0 N NEUTROPHIL # (test code = NT#) 5.63 K/mm3 1.8-7.7 N IMMATURE GRANULOCYTE # (test code = IG#) 0.06 x10 3/uL 0-0.03 H LYMPHOCYTE # (test code = LY#) 0.97 K/mm3 1.0-5.0 L MONOCYTE # (test code = MO#) 0.95 K/mm3 0-0.8 H EOSINOPHIL # (test code = EO#) 0.13 K/mm3 0.0-0.5 N BASOPHIL # (test code = BA#) 0.02 K/mm3 0.0-0.2 N NUCLEATED RBC # (test code = NRBC#) 0.00 K/mm3 0.0-0.1 N MANUAL DIFF REQUIRED (test code = MDIFF) NO, ONLY SCAN NEEDED DIFFERENTIAL [id number] 08:42:00* Test Item Value Reference Range Interpretation Comments STAIN ACCEPTABILITY (test code = STN ACCEPTABLE) CABOT RINGS (test code = CAB) MORPHOLOGY COMMENT (test code = MOC) PLATELET ESTIMATE (test code = PLTEST) PLATELET MORPHOLOGY (test code = PLTMORPH) CBC W/AUTO [id number] 08:42:00* Test Item Value Reference Range Interpretation Comments WHITE BLOOD CELL (test code = WBC) 7.8 K/mm3 4.5-12.5 N RED BLOOD CELL (test code = RBC) 2.60 mill/mm3 3.7-5.2 L HEMOGLOBIN (test code = HGB) 7.5 gram/dL 11.5-15.5 L HEMATOCRIT (test code = HCT) 25.4 % 36.0-46.0 L MEAN CELL VOLUME (test code = MCV) 97.7 fL 80-98 N MEAN CELL HGB (test code = MCH) 28.8 picogram 27.0-33.0 N MEAN CELL HGB CONCETRATION (test code = MCHC) 29.5 gram/dL 33.0-36. 0 L RED CELL DISTRIBUTION WIDTH (test code = RDW) 18.3 % 11.6-16. 2 H RED CELL DISTRIBUTION WIDTH SD (test code = RDW-SD) 63.7 fL 37 .0-51.0 H PLATELET COUNT (test code = PLT) 171 K/mm3 150-450 N MEAN PLATELET VOLUME (test code = MPV) 13.0 fL 6.7-11.0 H NEUTROPHIL % (test code = NT%) 72.5 % 39.0-69.0 H IMMATURE GRANULOCYTE % (test code = IG%) 0.8 % 0.0-5.0 N LYMPHOCYTE % (test code = LY%) 12.5 % 25.0-55.0 L MONOCYTE % (test code = MO%) 12.2 % 0.0-10.0 H EOSINOPHIL % (test code = EO%) 1.7 % 0.0-5.0 N BASOPHIL % (test code = BA%) 0.3 % 0.0-1.0 N NUCLEATED RBC % (test code = NRBC%) 0.0 % 0-0 N NEUTROPHIL # (test code = NT#) 5.63 K/mm3 1.8-7.7 N IMMATURE GRANULOCYTE # (test code = IG#) 0.06 x10 3/uL 0-0.03 H LYMPHOCYTE # (test code = LY#) 0.97 K/mm3 1.0-5.0 L MONOCYTE # (test code = MO#) 0.95 K/mm3 0-0.8 H EOSINOPHIL # (test code = EO#) 0.13 K/mm3 0.0-0.5 N BASOPHIL # (test code = BA#) 0.02 K/mm3 0.0-0.2 N NUCLEATED RBC # (test code = NRBC#) 0.00 K/mm3 0.0-0.1 N MANUAL DIFF REQUIRED (test code = MDIFF) NO, ONLY SCAN NEEDED DIFFERENTIAL [id number] 08:42:00* Test Item Value Reference Range Interpretation Comments STAIN ACCEPTABILITY (test code = STN ACCEPTABLE) CABOT RINGS (test code = CAB) MORPHOLOGY COMMENT (test code = MOC) PLATELET ESTIMATE (test code = PLTEST) PLATELET MORPHOLOGY (test code = PLTMORPH) CBC W/AUTO [id number] 08:42:00* Test Item Value Reference Range Interpretation Comments WHITE BLOOD CELL (test code = WBC) 7.8 K/mm3 4.5-12.5 N RED BLOOD CELL (test code = RBC) 2.60 mill/mm3 3.7-5.2 L HEMOGLOBIN (test code = HGB) 7.5 gram/dL 11.5-15.5 L HEMATOCRIT (test code = HCT) 25.4 % 36.0-46.0 L MEAN CELL VOLUME (test code = MCV) 97.7 fL 80-98 N MEAN CELL HGB (test code = MCH) 28.8 picogram 27.0-33.0 N MEAN CELL HGB CONCETRATION (test code = MCHC) 29.5 gram/dL 33.0-36. 0 L RED CELL DISTRIBUTION WIDTH (test code = RDW) 18.3 % 11.6-16. 2 H RED CELL DISTRIBUTION WIDTH SD (test code = RDW-SD) 63.7 fL 37 .0-51.0 H PLATELET COUNT (test code = PLT) 171 K/mm3 150-450 N MEAN PLATELET VOLUME (test code = MPV) 13.0 fL 6.7-11.0 H NEUTROPHIL % (test code = NT%) 72.5 % 39.0-69.0 H IMMATURE GRANULOCYTE % (test code = IG%) 0.8 % 0.0-5.0 N LYMPHOCYTE % (test code = LY%) 12.5 % 25.0-55.0 L MONOCYTE % (test code = MO%) 12.2 % 0.0-10.0 H EOSINOPHIL % (test code = EO%) 1.7 % 0.0-5.0 N BASOPHIL % (test code = BA%) 0.3 % 0.0-1.0 N NUCLEATED RBC % (test code = NRBC%) 0.0 % 0-0 N NEUTROPHIL # (test code = NT#) 5.63 K/mm3 1.8-7.7 N IMMATURE GRANULOCYTE # (test code = IG#) 0.06 x10 3/uL 0-0.03 H LYMPHOCYTE # (test code = LY#) 0.97 K/mm3 1.0-5.0 L MONOCYTE # (test code = MO#) 0.95 K/mm3 0-0.8 H EOSINOPHIL # (test code = EO#) 0.13 K/mm3 0.0-0.5 N BASOPHIL # (test code = BA#) 0.02 K/mm3 0.0-0.2 N NUCLEATED RBC # (test code = NRBC#) 0.00 K/mm3 0.0-0.1 N MANUAL DIFF REQUIRED (test code = MDIFF) NO, ONLY SCAN NEEDED DIFFERENTIAL [id number] 08:42:00* Test Item Value Reference Range Interpretation Comments STAIN ACCEPTABILITY (test code = STN ACCEPTABLE) MORPHOLOGY COMMENT (test code = MOC) PLATELET ESTIMATE (test code = PLTEST) PLATELET MORPHOLOGY (test code = PLTMORPH) CBC W/AUTO [id number] 08:42:00* Test Item Value Reference Range Interpretation Comments WHITE BLOOD CELL (test code = WBC) 7.8 K/mm3 4.5-12.5 N RED BLOOD CELL (test code = RBC) 2.60 mill/mm3 3.7-5.2 L HEMOGLOBIN (test code = HGB) 7.5 gram/dL 11.5-15.5 L HEMATOCRIT (test code = HCT) 25.4 % 36.0-46.0 L MEAN CELL VOLUME (test code = MCV) 97.7 fL 80-98 N MEAN CELL HGB (test code = MCH) 28.8 picogram 27.0-33.0 N MEAN CELL HGB CONCETRATION (test code = MCHC) 29.5 gram/dL 33.0-36. 0 L RED CELL DISTRIBUTION WIDTH (test code = RDW) 18.3 % 11.6-16. 2 H RED CELL DISTRIBUTION WIDTH SD (test code = RDW-SD) 63.7 fL 37 .0-51.0 H PLATELET COUNT (test code = PLT) 171 K/mm3 150-450 N MEAN PLATELET VOLUME (test code = MPV) 13.0 fL 6.7-11.0 H NEUTROPHIL % (test code = NT%) 72.5 % 39.0-69.0 H IMMATURE GRANULOCYTE % (test code = IG%) 0.8 % 0.0-5.0 N LYMPHOCYTE % (test code = LY%) 12.5 % 25.0-55.0 L MONOCYTE % (test code = MO%) 12.2 % 0.0-10.0 H EOSINOPHIL % (test code = EO%) 1.7 % 0.0-5.0 N BASOPHIL % (test code = BA%) 0.3 % 0.0-1.0 N NUCLEATED RBC % (test code = NRBC%) 0.0 % 0-0 N NEUTROPHIL # (test code = NT#) 5.63 K/mm3 1.8-7.7 N IMMATURE GRANULOCYTE # (test code = IG#) 0.06 x10 3/uL 0-0.03 H LYMPHOCYTE # (test code = LY#) 0.97 K/mm3 1.0-5.0 L MONOCYTE # (test code = MO#) 0.95 K/mm3 0-0.8 H EOSINOPHIL # (test code = EO#) 0.13 K/mm3 0.0-0.5 N BASOPHIL # (test code = BA#) 0.02 K/mm3 0.0-0.2 N NUCLEATED RBC # (test code = NRBC#) 0.00 K/mm3 0.0-0.1 N MANUAL DIFF REQUIRED (test code = MDIFF) NO, ONLY SCAN NEEDED DIFFERENTIAL [id number] 08:42:00* Test Item Value Reference Range Interpretation Comments STAIN ACCEPTABILITY (test code = STN ACCEPTABLE) CABOT RINGS (test code = CAB) MORPHOLOGY COMMENT (test code = MOC) PLATELET ESTIMATE (test code = PLTEST) PLATELET MORPHOLOGY (test code = PLTMORPH) BASIC METABOLIC [id number] 08:06:00* Test Item Value Reference Range Interpretation Comments SODIUM (test code = NA) 142 mmol/L 136-145 N POTASSIUM (test code = K) 3.7 mmol/L 3.5-5.1 N CHLORIDE (test code = CL) 108.0 mmol/L 98-107 H CARBON DIOXIDE (test code = CO2) 28.0 mmol/L 21-32 N ANION GAP (test code = GAP) 9.7 10-20 L GLUCOSE (test code = GLU) 91 mg/dL 74-106 N BLOOD UREA NITROGEN (test code = BUN) 36 mg/dL 7-18 H GLOMERULAR FILTRATION RATE (test code = GFR) 55 mL/min >=60 Estimated GFR by using Modified MDRD formula.Chronic kidney disease is defined as either kidney damageor GFR <60 mL/min/1.73 m2 for >3 months. CREATININE (test code = CREAT) 1.00 mg/dL 0.55-1.02 N Note change in reference range due to change in reagent. BUN/CREATININE RATIO (test code = BUN/CREA) 36.0 10-20 H CALCIUM (test code = CA) 8.2 mg/dL 8.5-10.1 L [id number] 08:06:00* Test Item Value Reference Range Interpretation Comments MAGNESIUM (test code = MAG) 1.8 mg/dL 1.8-2.4 N [id number] 16:50:00* Test Item Value Reference Range Interpretation Comments GLUBED (test code = GLUBED) 66 mg/dL 74-106 L Performed by certified pulping machine operator at [facility] BASIC METABOLIC [id number] 13:20:00* Test Item Value Reference Range Interpretation Comments SODIUM (test code = NA) 140 mmol/L 136-145 N POTASSIUM (test code = K) 3.7 mmol/L 3.5-5.1 N CHLORIDE (test code = CL) 106.0 mmol/L 98-107 N CARBON DIOXIDE (test code = CO2) 29.0 mmol/L 21-32 N ANION GAP (test code = GAP) 8.7 10-20 L GLUCOSE (test code = GLU) 83 mg/dL 74-106 N BLOOD UREA NITROGEN (test code = BUN) 37 mg/dL 7-18 H GLOMERULAR FILTRATION RATE (test code = GFR) 49 mL/min >=60 Estimated GFR by using Modified MDRD formula.Chronic kidney disease is defined as either kidney damageor GFR <60 mL/min/1.73 m2 for >3 months. CREATININE (test code = CREAT) 1.10 mg/dL 0.55-1.02 H Note change in reference range due to change in reagent. BUN/CREATININE RATIO (test code = BUN/CREA) 33.6 10-20 H CALCIUM (test code = CA) 7.7 mg/dL 8.5-10.1 L PT IS A LINE DRAW MARIA M LUND WILL DRAW V.LAB.2 [id number].LAB.1 [id number] 13:20:00* Test Item Value Reference Range Interpretation Comments MAGNESIUM (test code = MAG) 1.8 mg/dL 1.8-2.4 N PT IS A LINE DRAW MARIA M LUND WILL DRAW V.LAB.[facility] ANIOV.LAB.[facility] 0709BASIC METABOLIC [id number] 13:13:00* Test Item Value Reference Range Interpretation Comments SODIUM (test code = NA) 140 mmol/L 136-145 N POTASSIUM (test code = K) 3.7 mmol/L 3.5-5.1 N CHLORIDE (test code = CL) 106.0 mmol/L 98-107 N CARBON DIOXIDE (test code = CO2) mmol/L 21-32 ANION GAP (test code = GAP) 10-20 GLUCOSE (test code = GLU) mg/dL 74-106 BLOOD UREA NITROGEN (test code = BUN) mg/dL 7-18 GLOMERULAR FILTRATION RATE (test code = GFR) mL/min >=60 CREATININE (test code = CREAT) mg/dL 0.55-1.02 BUN/CREATININE RATIO (test code = BUN/CREA) 10-20 CALCIUM (test code = CA) mg/dL 8.5-10.1 PT IS A LINE DRAW MARIA M LUND WILL DRAW V.LAB.[facility] ANIOV.LAB.[facility] [id number] 13:13:00* Test Item Value Reference Range Interpretation Comments MAGNESIUM (test code = MAG) mg/dL 1.8-2.4 PT IS A LINE DRAW MARIA M LUND WILL DRAW V.LAB.2 ANIOV.LAB.[facility] [id number] 12:30:00* Test Item Value Reference Range Interpretation Comments GLUBED (test code = GLUBED) 80 mg/dL 74-106 N Performed by certified pulping machine operator at [facility] [id number] 12:29:00* Test Item Value Reference Range Interpretation Comments GLUBED (test code = GLUBED) 66 mg/dL 74-106 L Performed by certified pulping machine operator at [facility] [id number] 12:29:00* Test Item Value Reference Range Interpretation Comments GLUBED (test code = GLUBED) 49 mg/dL 74-106 LL Performed by certified pulping machine operator at [facility] [id number] 12:29:00* Test Item Value Reference Range Interpretation Comments GLUBED (test code = GLUBED) 72 mg/dL 74-106 L Performed by certified pulping machine operator at [facility] [id number] 12:29:00* Test Item Value Reference Range Interpretation Comments GLUBED (test code = GLUBED) 97 mg/dL 74-106 N Performed by certified pulping machine operator at [facility] - XR CHEST 1 [id number] 08:57:00 FAX: Conner Hernandez MD [phone] [place]: B St: DIS FAX: Ilan Holt MD Name: MOJGAN CUMMINGS [facility] : 1950 Age/S: 68/F [address] [facility] [address] Unit #: [id number] Loc: [place] [address] Phys: Conner Norris MD Acct: [id number] Dis Date: Status: DIS IN PHONE #: [phone] Exam Date: 12/22/2018 0804 FAX #: [phone] Reason: chf EXAMS: CPT CODE: [id number] XR CHEST 1 V 85653 HISTORY: CHF. COMPARISON: December 18, 2018. Right jugular central line and tracheostomy tube are unchanged. Resolved right effusion and platelike atelectasis. No congestion or infiltrates. Cardiomegaly. 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 IMPRESSION: Lungs are clear with right basal atelectasis and effusion which appear to have resolved. at 0857 Reported and signed by: Clem Grissom M.D. CC: Conner Norris MD; Ilan Stein Technologist: Sachi Gonzalez(R); STUDENT TECHNOLOGIST Trnscrd Date/Time/By: 12/22/2018 (0857) : By: [email or web address] Orig Print D/T: S: 12/22/2018 (900) PAGE 1 Signed Report - XR CHEST 1 [id number] 08:57:00 FAX: Conner Hernandez MD [phone] [place]: St: [facility] FAX: Ilan Holt MD Name: MOJGAN CUMMINGS [facility] : 1950 Age/S: 68/F [address] [facility] Unit #: [id number] Loc: V.2078 [facility] [place] [address] Phys: Conner Norris MD Acct: [id number] Dis Date: Status: ADM IN PHONE #: [phone] Exam Date: 12/22/2018 08 FAX #: [phone] Reason: chf EXAMS: CPT CODE: [id number] XR CHEST 1 V 16102 HISTORY: CHF. COMPARISON: December 18, 2018. Right jugular central line and tracheostomy tube are unchanged. Resolved right effusion and platelike atelectasis. No congestion or infiltrates. Cardiomegaly. 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 IMPRESSION: Lungs are clear with right basal atelectasis and effusion which appear to have resolved. at 0857 Reported and signed by: Clem Grissom M.D. CC: Conner Norris MD; Ilan Stein Technologist: Sachi Mo); STUDENT TECHNOLOGIST Trnscrd Date/Time/By: 12/22/2018 (0857) : By: [email or web address] Orig Print D/T: S: 12/22/2018 (09) PAGE 1 Signed Report - XR CHEST 1 [id number] 08:57:00 FAX: Conner Hernandez MD [phone] [place]: St: DIS FAX: Ilan Holt MD Name: MOJGAN CUMMINGS [facility] : 1950 Age/S: 68/F [address] [facility] Unit #: [id number] Loc: [place] [address] Phys: Conner Norris MD Acct: [id number] Dis Date: Status: DIS IN PHONE #: [phone] Exam Date: 12/22/2018 08 FAX #: [phone] Reason: chf EXAMS: CPT CODE: [id number] XR CHEST 1 V 37680 HISTORY: CHF. COMPARISON: December 18, 2018. Right jugular central line and tracheostomy tube are unchanged. Resolved right effusion and platelike atelectasis. No congestion or infiltrates. Cardiomegaly. 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 IMPRESSION: Lungs are clear with right basal atelectasis and effusion which appear to have resolved. at 0815 Reported and signed by: Clem Grissom M.D. CC: Conner Norris MD; Ilan Stein Technologist: Sachi Mo); STUDENT TECHNOLOGIST Trnscrd Date/Time/By: 12/22/2018 (0857) : By: [email or web address] Orig Print D/T: S: 12/22/2018 (0970) PAGE 1 Signed Report BASIC METABOLIC [id number] 06:29:00* Test Item Value Reference Range Interpretation Comments SODIUM (test code = NA) 140 mmol/L 136-145 N POTASSIUM (test code = K) 3.7 mmol/L 3.5-5.1 N CHLORIDE (test code = CL) 106.0 mmol/L 98-107 N CARBON DIOXIDE (test code = CO2) 28.0 mmol/L 21-32 N ANION GAP (test code = GAP) 9.7 10-20 L GLUCOSE (test code = GLU) 80 mg/dL 74-106 N BLOOD UREA NITROGEN (test code = BUN) 44 mg/dL 7-18 H GLOMERULAR FILTRATION RATE (test code = GFR) 37 mL/min >=60 Estimated GFR by using Modified MDRD formula.Chronic kidney disease is defined as either kidney damageor GFR <60 mL/min/1.73 m2 for >3 months. CREATININE (test code = CREAT) 1.40 mg/dL 0.55-1.02 H Note change in reference range due to change in reagent. BUN/CREATININE RATIO (test code = BUN/CREA) 31.4 10-20 H CALCIUM (test code = CA) 8.0 mg/dL 8.5-10.1 L [id number] 06:29:00* Test Item Value Reference Range Interpretation Comments PHOSPHORUS (test code = PHOS) 3.4 mg/dL 2.5-4.9 N [id number] 06:29:00* Test Item Value Reference Range Interpretation Comments MAGNESIUM (test code = MAG) 1.6 mg/dL 1.8-2.4 L BASIC METABOLIC [id number] 06:24:00* Test Item Value Reference Range Interpretation Comments SODIUM (test code = NA) 140 mmol/L 136-145 N POTASSIUM (test code = K) 3.7 mmol/L 3.5-5.1 N CHLORIDE (test code = CL) 106.0 mmol/L 98-107 N CARBON DIOXIDE (test code = CO2) mmol/L 21-32 ANION GAP (test code = GAP) 10-20 GLUCOSE (test code = GLU) mg/dL 74-106 BLOOD UREA NITROGEN (test code = BUN) mg/dL 7-18 GLOMERULAR FILTRATION RATE (test code = GFR) mL/min >=60 CREATININE (test code = CREAT) mg/dL 0.55-1.02 BUN/CREATININE RATIO (test code = BUN/CREA) 10-20 CALCIUM (test code = CA) mg/dL 8.5-10.1 [id number] 06:24:00* Test Item Value Reference Range Interpretation Comments PHOSPHORUS (test code = PHOS) mg/dL 2.5-4.9 [id number] 06:24:00* Test Item Value Reference Range Interpretation Comments MAGNESIUM (test code = MAG) mg/dL 1.8-2.4 [id number] 18:42:00* Test Item Value Reference Range Interpretation Comments GLUBED (test code = GLUBED) 90 mg/dL 74-106 N Performed by certified pulping machine operator at [facility] [id number] 18:42:00* Test Item Value Reference Range Interpretation Comments GLUBED (test code = GLUBED) 86 mg/dL 74-106 N Performed by certified pulping machine operator at [facility] [id number] 12:42:00* Test Item Value Reference Range Interpretation Comments GLUBED (test code = GLUBED) 91 mg/dL 74-106 N Performed by certified pulping machine operator at [facility] CBC W/AUTO [id number] 10:14:00* Test Item Value Reference Range Interpretation Comments WHITE BLOOD CELL (test code = WBC) 11.0 K/mm3 4.5-12.5 N RED BLOOD CELL (test code = RBC) 2.55 mill/mm3 3.7-5.2 L HEMOGLOBIN (test code = HGB) 7.8 gram/dL 11.5-15.5 L HEMATOCRIT (test code = HCT) 24.5 % 36.0-46.0 L MEAN CELL VOLUME (test code = MCV) 96.1 fL 80-98 N MEAN CELL HGB (test code = MCH) 30.6 picogram 27.0-33.0 N MEAN CELL HGB CONCETRATION (test code = MCHC) 31.8 gram/dL 33.0-36. 0 L RED CELL DISTRIBUTION WIDTH (test code = RDW) 18.7 % 11.6-16. 2 H RED CELL DISTRIBUTION WIDTH SD (test code = RDW-SD) 62.4 fL 37 .0-51.0 H PLATELET COUNT (test code = PLT) 141 K/mm3 150-450 L MEAN PLATELET VOLUME (test code = MPV) 12.8 fL 6.7-11.0 H NEUTROPHIL % (test code = NT%) 81.7 % 39.0-69.0 H IMMATURE GRANULOCYTE % (test code = IG%) 1.4 % 0.0-5.0 N LYMPHOCYTE % (test code = LY%) 6.7 % 25.0-55.0 L MONOCYTE % (test code = MO%) 8.8 % 0.0-10.0 N EOSINOPHIL % (test code = EO%) 1.2 % 0.0-5.0 N BASOPHIL % (test code = BA%) 0.2 % 0.0-1.0 N NUCLEATED RBC % (test code = NRBC%) 0.0 % 0-0 N NEUTROPHIL # (test code = NT#) 9.03 K/mm3 1.8-7.7 H IMMATURE GRANULOCYTE # (test code = IG#) 0.15 x10 3/uL 0-0.03 H LYMPHOCYTE # (test code = LY#) 0.74 K/mm3 1.0-5.0 L MONOCYTE # (test code = MO#) 0.97 K/mm3 0-0.8 H EOSINOPHIL # (test code = EO#) 0.13 K/mm3 0.0-0.5 N BASOPHIL # (test code = BA#) 0.02 K/mm3 0.0-0.2 N NUCLEATED RBC # (test code = NRBC#) 0.00 K/mm3 0.0-0.1 N MANUAL DIFF REQUIRED (test code = MDIFF) NO BASIC METABOLIC [id number] 09:00:00* Test Item Value Reference Range Interpretation Comments SODIUM (test code = NA) 139 mmol/L 136-145 N POTASSIUM (test code = K) 3.8 mmol/L 3.5-5.1 N CHLORIDE (test code = CL) 105.0 mmol/L 98-107 N CARBON DIOXIDE (test code = CO2) 27.0 mmol/L 21-32 N ANION GAP (test code = GAP) 10.8 10-20 N GLUCOSE (test code = GLU) 96 mg/dL 74-106 N BLOOD UREA NITROGEN (test code = BUN) 48 mg/dL 7-18 H GLOMERULAR FILTRATION RATE (test code = GFR) 32 mL/min >=60 Estimated GFR by using Modified MDRD formula.Chronic kidney disease is defined as either kidney damageor GFR <60 mL/min/1.73 m2 for >3 months. CREATININE (test code = CREAT) 1.60 mg/dL 0.55-1.02 H Note change in reference range due to change in reagent. BUN/CREATININE RATIO (test code = BUN/CREA) 30.0 10-20 H CALCIUM (test code = CA) 7.8 mg/dL 8.5-10.1 L [id number] 09:00:00* Test Item Value Reference Range Interpretation Comments PHOSPHORUS (test code = PHOS) 3.5 mg/dL 2.5-4.9 N [id number] 09:00:00* Test Item Value Reference Range Interpretation Comments MAGNESIUM (test code = MAG) 1.5 mg/dL 1.8-2.4 L BASIC METABOLIC [id number] 08:52:00* Test Item Value Reference Range Interpretation Comments SODIUM (test code = NA) 139 mmol/L 136-145 N POTASSIUM (test code = K) 3.8 mmol/L 3.5-5.1 N CHLORIDE (test code = CL) 105.0 mmol/L 98-107 N CARBON DIOXIDE (test code = CO2) mmol/L 21-32 ANION GAP (test code = GAP) 10-20 GLUCOSE (test code = GLU) mg/dL 74-106 BLOOD UREA NITROGEN (test code = BUN) mg/dL 7-18 GLOMERULAR FILTRATION RATE (test code = GFR) mL/min >=60 CREATININE (test code = CREAT) mg/dL 0.55-1.02 BUN/CREATININE RATIO (test code = BUN/CREA) 10-20 CALCIUM (test code = CA) mg/dL 8.5-10.1 [id number] 08:52:00* Test Item Value Reference Range Interpretation Comments PHOSPHORUS (test code = PHOS) mg/dL 2.5-4.9 [id number] 08:52:00* Test Item Value Reference Range Interpretation Comments MAGNESIUM (test code = MAG) mg/dL 1.8-2.4 [id number] 16:37:00* Test Item Value Reference Range Interpretation Comments GLUBED (test code = GLUBED) 86 mg/dL 74-106 N Performed by certified pulping machine operator at [facility] [id number] 11:39:00* Test Item Value Reference Range Interpretation Comments GLUBED (test code = GLUBED) 79 mg/dL 74-106 N Performed by certified pulping machine operator at [facility] BASIC METABOLIC [id number] 08:50:00* Test Item Value Reference Range Interpretation Comments SODIUM (test code = NA) 140 mmol/L 136-145 N POTASSIUM (test code = K) 3.9 mmol/L 3.5-5.1 N CHLORIDE (test code = CL) 106.0 mmol/L 98-107 N CARBON DIOXIDE (test code = CO2) 27.0 mmol/L 21-32 N ANION GAP (test code = GAP) 10.9 10-20 N GLUCOSE (test code = GLU) 101 mg/dL 74-106 N BLOOD UREA NITROGEN (test code = BUN) 52 mg/dL 7-18 H GLOMERULAR FILTRATION RATE (test code = GFR) 25 mL/min >=60 Estimated GFR by using Modified MDRD formula.Chronic kidney disease is defined as either kidney damageor GFR <60 mL/min/1.73 m2 for >3 months. CREATININE (test code = CREAT) 2.00 mg/dL 0.55-1.02 H Note change in reference range due to change in reagent. BUN/CREATININE RATIO (test code = BUN/CREA) 26.0 10-20 H CALCIUM (test code = CA) 7.8 mg/dL 8.5-10.1 L [id number] 08:50:00* Test Item Value Reference Range Interpretation Comments PHOSPHORUS (test code = PHOS) 4.1 mg/dL 2.5-4.9 N [id number] 08:50:00* Test Item Value Reference Range Interpretation Comments MAGNESIUM (test code = MAG) 1.6 mg/dL 1.8-2.4 L BASIC METABOLIC [id number] 08:47:00* Test Item Value Reference Range Interpretation Comments SODIUM (test code = NA) 140 mmol/L 136-145 N POTASSIUM (test code = K) 3.9 mmol/L 3.5-5.1 N CHLORIDE (test code = CL) 106.0 mmol/L 98-107 N CARBON DIOXIDE (test code = CO2) mmol/L 21-32 ANION GAP (test code = GAP) 10-20 GLUCOSE (test code = GLU) mg/dL 74-106 BLOOD UREA NITROGEN (test code = BUN) mg/dL 7-18 GLOMERULAR FILTRATION RATE (test code = GFR) mL/min >=60 CREATININE (test code = CREAT) mg/dL 0.55-1.02 BUN/CREATININE RATIO (test code = BUN/CREA) 10-20 CALCIUM (test code = CA) mg/dL 8.5-10.1 [id number] 08:47:00* Test Item Value Reference Range Interpretation Comments PHOSPHORUS (test code = PHOS) mg/dL 2.5-4.9 [id number] 08:47:00* Test Item Value Reference Range Interpretation Comments MAGNESIUM (test code = MAG) mg/dL 1.8-2.4 [id number] 05:21:00* Test Item Value Reference Range Interpretation Comments GLUBED (test code = GLUBED) 80 mg/dL 74-106 N Performed by certified pulping machine operator at [facility] [id number] 20:56:00* Test Item Value Reference Range Interpretation Comments GLUBED (test code = GLUBED) 83 mg/dL 74-106 N Performed by certified pulping machine operator at [facility] [id number] 16:06:00* Test Item Value Reference Range Interpretation Comments GLUBED (test code = GLUBED) 95 mg/dL 74-106 N Performed by certified pulping machine operator at [facility] [id number] 13:31:00* Test Item Value Reference Range Interpretation Comments GLUBED (test code = GLUBED) 73 mg/dL 74-106 L Performed by certified pulping machine operator at [facility] BASIC METABOLIC [id number] 08:47:00* Test Item Value Reference Range Interpretation Comments SODIUM (test code = NA) 140 mmol/L 136-145 N POTASSIUM (test code = K) 4.1 mmol/L 3.5-5.1 N CHLORIDE (test code = CL) 106.0 mmol/L 98-107 N CARBON DIOXIDE (test code = CO2) 26.0 mmol/L 21-32 N ANION GAP (test code = GAP) 12.1 10-20 N GLUCOSE (test code = GLU) 99 mg/dL 74-106 N BLOOD UREA NITROGEN (test code = BUN) 51 mg/dL 7-18 H GLOMERULAR FILTRATION RATE (test code = GFR) 21 mL/min >=60 Estimated GFR by using Modified MDRD formula.Chronic kidney disease is defined as either kidney damageor GFR <60 mL/min/1.73 m2 for >3 months. CREATININE (test code = CREAT) 2.30 mg/dL 0.55-1.02 H Note change in reference range due to change in reagent. BUN/CREATININE RATIO (test code = BUN/CREA) 22.2 10-20 H CALCIUM (test code = CA) 7.7 mg/dL 8.5-10.1 L BASIC METABOLIC [id number] 08:43:00* Test Item Value Reference Range Interpretation Comments SODIUM (test code = NA) 140 mmol/L 136-145 N POTASSIUM (test code = K) 4.1 mmol/L 3.5-5.1 N CHLORIDE (test code = CL) 106.0 mmol/L 98-107 N CARBON DIOXIDE (test code = CO2) mmol/L 21-32 ANION GAP (test code = GAP) 10-20 GLUCOSE (test code = GLU) mg/dL 74-106 BLOOD UREA NITROGEN (test code = BUN) mg/dL 7-18 GLOMERULAR FILTRATION RATE (test code = GFR) mL/min >=60 CREATININE (test code = CREAT) mg/dL 0.55-1.02 BUN/CREATININE RATIO (test code = BUN/CREA) 10-20 CALCIUM (test code = CA) 7.7 mg/dL 8.5-10.1 L - XR CHEST 1 [id number] 07:29:00 FAX: Mark Anthony Parker MD [phone] [place]: B St: DIS FAX: Ilan Holt MD Name: MOJGAN CUMMINGS [facility] : 1950 Age/S: 68/F [address] [facility] Unit #: [id number] Loc: [place] [address] Phys: Mark Anthony Kerns MD Acct: [id number] Dis Date: Status: DIS IN PHONE #: [phone] Exam Date: 12/18/2018 0355 FAX #: [phone] Reason: Resp Failure EXAMS: CPT CODE: [id number] XR CHEST 1 V 68304 EXAM: Chest x-ray, one view; INFORMATION: Persistent platelike atelectasis in the lower portions of the right lung. Remainder the lungs is well aerated. Overall, no major change compared with the recent study from December 15, 2018. Heart is normal in size. Advanced osteoarthritis of the shoulder joints. at 0729 Reported and signed by: Calderon Johnson CC: Mark Anthony Kerns MD; Ilan Stein Technologist: Misty Pena RT(R) Trnscrd Date/Time/By: 12/18/2018 (0729) : By: HarryGRW Orig Print D /T: S: 12/18/2018 (0732) PAGE 1 S igned Report - XR CHEST 1 [id number] 07:29:00 FAX: Mark Anthony Parker MD [phone] [place]: St: [facility] FAX: Ilan Holt MD Name: MOJGAN CUMMINGS [facility] : 1950 Age/S: 68/F [address] Unit #: [id number] Loc: [place] [address] Phys: Mark Anthony Kerns MD Acct: [id number] Dis Date: Status: ADM IN PHONE #: [phone] Exam Date: 12/18/2018 0355 FAX #: [phone] Reason: Resp Failure EXAMS: CPT CODE: [id number] XR CHEST 1 V 95638 EXAM: Chest x-ray, one view; INFORMATION: Pe rsistent platelike atelectasis in the lower portions of the right lung. R emainder the lungs is well aerated. Overall, no major change compared with the recent study from December 15, 2018. Heart is normal in size. 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 at 7058 Reported and signed by: Calderon Johnson CC: Mark Anthony Kerns MD; Ilan Stein Technologist: Misty Pena RT(R) Trnscrd Date/Time/By: 12/18/2018 (07) : By: HarryGRW Orig Print D /T: S: 12/18/2018 (0732) PAGE 1 S igned Report - XR CHEST 1 [id number] 07:29:00 FAX: Mark Anthony Parker MD [phone] [place]: B St: DIS FAX: Ilan Holt MD Name: MOJGAN CUMMINGS [facility] : 1950 Age/S: 68/F [address] Unit #: [id number] Loc: [place] [address] Phys: Mark Anthony Kerns MD Acct: [id number] Dis Date: Status: DIS IN PHONE #: [phone] Exam Date: 12/18/2018354 FAX #: [phone] Reason: Resp Failure EXAMS: CPT CODE: [id number] XR CHEST 1 V 90338 EXAM: Chest x-ray, one view; INFORMATION: Pe rsistent platelike atelectasis in the lower portions of the right lung. R emainder the lungs is well aerated. Overall, no major change compared with the recent study from December 15, 2018. Heart is normal in size. 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 at 0741 Reported and signed by: Calderon Johnson CC: Mark Anthony Kerns MD; Ilan Stein Technologist: Misty Pena RT(R) Trnscrd Date/Time/By: 12/18/2018 (728) : By: [email or web address].GRW Orig Print D /T: S: 12/18/2018 (0732) PAGE 1 S igned Report COMPREHENSIVE METABOLIC PANEL 2018-12-18 07:11:00* Test Item Value Reference Range Interpretation Comments SODIUM (test code = NA) 140 mmol/L 136-145 N POTASSIUM (test code = K) 4.2 mmol/L 3.5-5.1 N CHLORIDE (test code = CL) 106.0 mmol/L 98-107 N CARBON DIOXIDE (test code = CO2) 25.0 mmol/L 21-32 N ANION GAP (test code = GAP) 13.2 10-20 N GLUCOSE (test code = GLU) 101 mg/dL 74-106 N BLOOD UREA NITROGEN (test code = BUN) 43 mg/dL 7-18 H GLOMERULAR FILTRATION RATE (test code = GFR) 18 mL/min >=60 Estimated GFR by using Modified MDRD formula.Chronic kidney disease is defined as either kidney damageor GFR <60 mL/min/1.73 m2 for >3 months. CREATININE (test code = CREAT) 2.60 mg/dL 0.55-1.02 H Note change in reference range due to change in reagent. BUN/CREATININE RATIO (test code = BUN/CREA) 16.5 10-20 N TOTAL PROTEIN (test code = PROT) 5.0 gram/dL 6.4-8.2 L ALBUMIN (test code = ALB) 1.8 g/dL 3.4-5.0 L GLOBULIN (test code = GLOB) 3.2 gram/dL 2.7-4.2 N ALBUMIN/GLOBULIN RATIO (test code = A/G) 0.6 0.75-1.50 L CALCIUM (test code = CA) 7.9 mg/dL 8.5-10.1 L BILIRUBIN TOTAL (test code = BILT) 0.70 mg/dL 0.0-1.0 N SGOT/AST (test code = AST) 17 IUnit/L 15-37 N SGPT/ALT (test code = ALT) 20 IUnit/L 12-78 N ALKALINE PHOSPHATASE TOTAL (test code = ALKP) 131 IUnit/L 45-117 H Note change in reference range due to change in reagent. COMPREHENSIVE METABOLIC [id number] 06:58:00* Test Item Value Reference Range Interpretation Comments SODIUM (test code = NA) 140 mmol/L 136-145 N POTASSIUM (test code = K) 4.2 mmol/L 3.5-5.1 N CHLORIDE (test code = CL) 106.0 mmol/L 98-107 N CARBON DIOXIDE (test code = CO2) mmol/L 21-32 ANION GAP (test code = GAP) 10-20 GLUCOSE (test code = GLU) mg/dL 74-106 BLOOD UREA NITROGEN (test code = BUN) mg/dL 7-18 GLOMERULAR FILTRATION RATE (test code = GFR) mL/min >=60 CREATININE (test code = CREAT) mg/dL 0.55-1.02 BUN/CREATININE RATIO (test code = BUN/CREA) 10-20 TOTAL PROTEIN (test code = PROT) gram/dL 6.4-8.2 ALBUMIN (test code = ALB) g/dL 3.4-5.0 GLOBULIN (test code = GLOB) gram/dL 2.7-4.2 ALBUMIN/GLOBULIN RATIO (test code = A/G) 0.75-1.50 CALCIUM (test code = CA) mg/dL 8.5-10.1 BILIRUBIN TOTAL (test code = BILT) mg/dL 0.0-1.0 SGOT/AST (test code = AST) IUnit/L 15-37 SGPT/ALT (test code = ALT) IUnit/L 12-78 ALKALINE PHOSPHATASE TOTAL (test code = ALKP) IUnit/L 45-117 CBC W/AUTO [id number] 06:19:00* Test Item Value Reference Range Interpretation Comments WHITE BLOOD CELL (test code = WBC) 9.9 K/mm3 4.5-12.5 N RED BLOOD CELL (test code = RBC) 3.04 mill/mm3 3.7-5.2 L HEMOGLOBIN (test code = HGB) 9.0 gram/dL 11.5-15.5 L HEMATOCRIT (test code = HCT) 28.6 % 36.0-46.0 L MEAN CELL VOLUME (test code = MCV) 94.1 fL 80-98 N MEAN CELL HGB (test code = MCH) 29.6 picogram 27.0-33.0 N MEAN CELL HGB CONCETRATION (test code = MCHC) 31.5 gram/dL 33.0-36. 0 L RED CELL DISTRIBUTION WIDTH (test code = RDW) 18.3 % 11.6-16. 2 H RED CELL DISTRIBUTION WIDTH SD (test code = RDW-SD) 54.2 fL 37 .0-51.0 H PLATELET COUNT (test code = PLT) 116 K/mm3 150-450 L MEAN PLATELET VOLUME (test code = MPV) 12.3 fL 6.7-11.0 H NEUTROPHIL % (test code = NT%) 83.5 % 39.0-69.0 H IMMATURE GRANULOCYTE % (test code = IG%) 1.3 % 0.0-5.0 N LYMPHOCYTE % (test code = LY%) 7.1 % 25.0-55.0 L MONOCYTE % (test code = MO%) 6.2 % 0.0-10.0 N EOSINOPHIL % (test code = EO%) 1.7 % 0.0-5.0 N BASOPHIL % (test code = BA%) 0.2 % 0.0-1.0 N NUCLEATED RBC % (test code = NRBC%) 0.0 % 0-0 N NEUTROPHIL # (test code = NT#) 8.27 K/mm3 1.8-7.7 H IMMATURE GRANULOCYTE # (test code = IG#) 0.13 x10 3/uL 0-0.03 H LYMPHOCYTE # (test code = LY#) 0.70 K/mm3 1.0-5.0 L MONOCYTE # (test code = MO#) 0.61 K/mm3 0-0.8 N EOSINOPHIL # (test code = EO#) 0.17 K/mm3 0.0-0.5 N BASOPHIL # (test code = BA#) 0.02 K/mm3 0.0-0.2 N NUCLEATED RBC # (test code = NRBC#) 0.00 K/mm3 0.0-0.1 N PROCALCITONIN (PCT)2018-12-17 07:33:00* Test Item Value Reference Range Interpretation Comments PROCALCITONIN (PCT) (test code = PROCAL) 1.22 ng/ml Concentration Interpretation (ng/mL) <0.51 Sepsis is not likely. Local bacterial infection is possible. (LOW RISK for progression to Sepsis) 0.51 - 2.00 Sepsis is possible, but other conditions are known to elevate PCT as well. (MODERATE RISK for progression to Sepsis) > 2.00 Sepsis is likely, unless other causes are known. (HIGH RISK for progression to Severe Sepsis or Septic Shock) 10.00 High likelihood of Severe Sepsis or Septic or higher Shock. *Increased PCT levels may not always be related to systemic bacterial infection.*Low PCT levels do not automatically exclude the presence of bacterial infection.*All results should be interpreted taking into account the patients history. BASIC METABOLIC [id number] 05:33:00* Test Item Value Reference Range Interpretation Comments SODIUM (test code = NA) 142 mmol/L 136-145 N POTASSIUM (test code = K) 4.1 mmol/L 3.5-5.1 N CHLORIDE (test code = CL) 107.0 mmol/L 98-107 N CARBON DIOXIDE (test code = CO2) 25.0 mmol/L 21-32 N ANION GAP (test code = GAP) 14.1 10-20 N GLUCOSE (test code = GLU) 109 mg/dL 74-106 H BLOOD UREA NITROGEN (test code = BUN) 39 mg/dL 7-18 H GLOMERULAR FILTRATION RATE (test code = GFR) 17 mL/min >=60 Estimated GFR by using Modified MDRD formula.Chronic kidney disease is defined as either kidney damageor GFR <60 mL/min/1.73 m2 for >3 months. CREATININE (test code = CREAT) 2.80 mg/dL 0.55-1.02 H Note change in reference range due to change in reagent. BUN/CREATININE RATIO (test code = BUN/CREA) 13.9 10-20 N CALCIUM (test code = CA) 7.3 mg/dL 8.5-10.1 L [id number] 05:33:00* Test Item Value Reference Range Interpretation Comments MAGNESIUM (test code = MAG) 1.8 mg/dL 1.8-2.4 N BASIC METABOLIC [id number] 07:51:00* Test Item Value Reference Range Interpretation Comments SODIUM (test code = NA) 141 mmol/L 136-145 N POTASSIUM (test code = K) 3.0 mmol/L 3.5-5.1 L CHLORIDE (test code = CL) 106.0 mmol/L 98-107 N CARBON DIOXIDE (test code = CO2) 25.0 mmol/L 21-32 N ANION GAP (test code = GAP) 13.0 10-20 N GLUCOSE (test code = GLU) 87 mg/dL 74-106 N BLOOD UREA NITROGEN (test code = BUN) 37 mg/dL 7-18 H GLOMERULAR FILTRATION RATE (test code = GFR) 17 mL/min >=60 Estimated GFR by using Modified MDRD formula.Chronic kidney disease is defined as either kidney damageor GFR <60 mL/min/1.73 m2 for >3 months. CREATININE (test code = CREAT) 2.70 mg/dL 0.55-1.02 H Note change in reference range due to change in reagent. BUN/CREATININE RATIO (test code = BUN/CREA) 13.7 10-20 N CALCIUM (test code = CA) 7.4 mg/dL 8.5-10.1 L [id number] 07:51:00* Test Item Value Reference Range Interpretation Comments PHOSPHORUS (test code = PHOS) 3.6 mg/dL 2.5-4.9 N [id number] 07:51:00* Test Item Value Reference Range Interpretation Comments MAGNESIUM (test code = MAG) 1.7 mg/dL 1.8-2.4 L CALCIUM [id number] 07:51:00* Test Item Value Reference Range Interpretation Comments CALCIUM IONIZED (test code = ERICH) 1.16 mmol/L 1.12-1.32 N BASIC METABOLIC [id number] 07:38:00* Test Item Value Reference Range Interpretation Comments SODIUM (test code = NA) 141 mmol/L 136-145 N POTASSIUM (test code = K) 3.0 mmol/L 3.5-5.1 L CHLORIDE (test code = CL) 106.0 mmol/L 98-107 N CARBON DIOXIDE (test code = CO2) 25.0 mmol/L 21-32 N ANION GAP (test code = GAP) 13.0 10-20 N GLUCOSE (test code = GLU) 87 mg/dL 74-106 N BLOOD UREA NITROGEN (test code = BUN) 37 mg/dL 7-18 H GLOMERULAR FILTRATION RATE (test code = GFR) 17 mL/min >=60 Estimated GFR by using Modified MDRD formula.Chronic kidney disease is defined as either kidney damageor GFR <60 mL/min/1.73 m2 for >3 months. CREATININE (test code = CREAT) 2.70 mg/dL 0.55-1.02 H Note change in reference range due to change in reagent. BUN/CREATININE RATIO (test code = BUN/CREA) 13.7 10-20 N CALCIUM (test code = CA) 7.4 mg/dL 8.5-10.1 L [id number] 07:38:00* Test Item Value Reference Range Interpretation Comments PHOSPHORUS (test code = PHOS) 3.6 mg/dL 2.5-4.9 N [id number] 07:38:00* Test Item Value Reference Range Interpretation Comments MAGNESIUM (test code = MAG) 1.7 mg/dL 1.8-2.4 L CALCIUM [id number] 07:38:00* Test Item Value Reference Range Interpretation Comments CALCIUM IONIZED (test code = ERICH) mmol/L 1.12-1.32 PROTHROMBIN [id number] 02:04:00* Test Item Value Reference Range Interpretation Comments PROTHROMBIN TIME PATIENT (test code = PTP) 16.7 seconds 9.0-14.0 H INTERNATIONAL NORMAL RATIO (test code = INR) 1.4 0.8-1.2 H The therapeutic range for oral anticoagulant therapy formost indications is an international normalized ratio (INR)of between 2.0 and 3.0. The recommended therapeutic INRrange for various clinical situations is listed below: Clinical Situation INR range Pulmonary e mbolism treatment (2.0-3.0)Venous thrombosis treatmentVenous thrombosis prophylaxis (high risk surgery)Prevention of systemic embolism from: Acute myocardial infarction Valvular heart disease Atrial fibrillation Mechanical prosthetic heart valves (2.5-3.5) IS PATIENT ON ANTICOAGULANTS? NCBC W/AUTO [id number] 02:00:00* Test Item Value Reference Range Interpretation Comments WHITE BLOOD CELL (test code = WBC) 12.3 K/mm3 4.5-12.5 N RED BLOOD CELL (test code = RBC) 3.06 mill/mm3 3.7-5.2 L HEMOGLOBIN (test code = HGB) 8.8 gram/dL 11.5-15.5 L RESULT VERIFIED BY REPEAT ANALYSIS HEMATOCRIT (test code = HCT) 26.4 % 36.0-46.0 L MEAN CELL VOLUME (test code = MCV) 86.3 fL 80-98 N MEAN CELL HGB (test code = MCH) 28.8 picogram 27.0-33.0 N MEAN CELL HGB CONCETRATION (test code = MCHC) 33.3 gram/dL 33.0-36. 0 N RED CELL DISTRIBUTION WIDTH (test code = RDW) 15.1 % 11.6-16. 2 N RED CELL DISTRIBUTION WIDTH SD (test code = RDW-SD) 46.5 fL 37 .0-51.0 N PLATELET COUNT (test code = PLT) 105 K/mm3 150-450 L MEAN PLATELET VOLUME (test code = MPV) 12.7 fL 6.7-11.0 H NEUTROPHIL % (test code = NT%) 80.6 % 39.0-69.0 H IMMATURE GRANULOCYTE % (test code = IG%) 2.2 % 0.0-5.0 N LYMPHOCYTE % (test code = LY%) 8.5 % 25.0-55.0 L MONOCYTE % (test code = MO%) 6.9 % 0.0-10.0 N EOSINOPHIL % (test code = EO%) 1.7 % 0.0-5.0 N BASOPHIL % (test code = BA%) 0.1 % 0.0-1.0 N NUCLEATED RBC % (test code = NRBC%) 0.2 % 0-0 H NEUTROPHIL # (test code = NT#) 9.88 K/mm3 1.8-7.7 H IMMATURE GRANULOCYTE # (test code = IG#) 0.27 x10 3/uL 0-0.03 H LYMPHOCYTE # (test code = LY#) 1.04 K/mm3 1.0-5.0 N MONOCYTE # (test code = MO#) 0.84 K/mm3 0-0.8 H EOSINOPHIL # (test code = EO#) 0.21 K/mm3 0.0-0.5 N BASOPHIL # (test code = BA#) 0.01 K/mm3 0.0-0.2 N NUCLEATED RBC # (test code = NRBC#) 0.02 K/mm3 0.0-0.1 N CBC W/O [id number] 07:48:00* Test Item Value Reference Range Interpretation Comments WHITE BLOOD CELL (test code = WBC) 15.7 K/mm3 4.5-12.5 H RED BLOOD CELL (test code = RBC) 2.15 mill/mm3 3.7-5.2 L HEMOGLOBIN (test code = HGB) 6.3 gram/dL 11.5-15.5 L HEMATOCRIT (test code = HCT) 19.1 % 36.0-46.0 LL Results called to [id number] by ANJALI 12/15/18 0747Critical results verified and read back by Nurse? Y MEAN CELL VOLUME (test code = MCV) 88.8 fL 80-98 N MEAN CELL HGB (test code = MCH) 29.3 picogram 27.0-33.0 N MEAN CELL HGB CONCETRATION (test code = MCHC) 33.0 gram/dL 33.0-36. 0 N RED CELL DISTRIBUTION WIDTH (test code = RDW) 15.0 % 11.6-16. 2 N PLATELET COUNT (test code = PLT) 92 K/mm3 150-450 L MEAN PLATELET VOLUME (test code = MPV) 12.9 fL 6.7-11.0 H - XR CHEST 1 [id number] 07:47:00 FAX: Ilan Holt MD [place]: B St: DIS FAX: Ashley Juarez NP [phone] Name: ZOILAMOJGAN MOLINA [facility] : 1950 Age/S: 68/F [address] [facility] Unit #: [id number] Loc: [place] [address] Phys: Ashley Hendrix NP Acct: [id number] Dis Date: Status: DIS IN PHONE #: [phone] Exam Date: 12/15/2018 0505 FAX #: [phone] Reason: respiratory failure EXAMS: CPT CODE: [id number] XR CHEST 1 V 16684 EXAM: Chest x-ray, one view; INFORMATION: Respiratory failure, GI bleed; IMPRESSION: No platelike atelectasis involving the basilar portion of the right upper lobe. 2. No further changes; no pulmonary edema; normal sized heart. at 0746 Reported and signed by: Rex Gates M.D. CC: Ilan Stein; Ashley Hendrix NP Technologist: Abigail Darling Trnscrd Date/Time/By: 12/15/2018 (0747) : By: Omar Orig Print D/T: S: 12/15/2018 (0750) PAGE 1 Signed Report - XR CHEST 1 [id number] 07:47:00 FAX: Ilan Holt MD [place]: B St: ADM FAX: Ashley Juarez NP [phone] Name: MOJGAN CUMMINGS [facility] : 1950 Age/S: 68/F [address] Unit #: [id number] Loc: V[address] [address] Phys: Ashley Hendrix NP Acct: [id number] Dis Date: Status: ADM IN PHONE #: [phone] Exam Date: 12/15/2018 0505 FAX #: [phone] Reason: respiratory failure EXAMS: CPT CODE: [id number] XR CHEST 1 V 76479 EXAM: Chest x-ray, one view; INFORMATION: Respiratory failure, GI bleed; IMPRESSION: No platelike atelectasis involving the basilar portion of the right upper lobe. 2. No further changes; no pulmonary edema; normal sized heart. Electronically Signed by Crispin Gates on at 0747 Reported and signed by: Jomar Gates M.D. 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 2. No further changes; no pulmonary edema; normal sized heart. at 2719 Reported and signed by: Rex Gates M.D. CC: Ilan Stein; Ashley Hendrix NP Technologist: Abigail Darling Trnwyrd Date/Time/By: 12/15/2018 (0747) : By: HarryGRW Orig Print D/T: S: 12/15/2018 (0750) PAGE 1 Signed Report BASIC METABOLIC [id number] 07:12:00* Test Item Value Reference Range Interpretation Comments SODIUM (test code = NA) 142 mmol/L 136-145 N POTASSIUM (test code = K) 3.0 mmol/L 3.5-5.1 L CHLORIDE (test code = CL) 108.0 mmol/L 98-107 H CARBON DIOXIDE (test code = CO2) 24.0 mmol/L 21-32 N ANION GAP (test code = GAP) 13.0 10-20 N GLUCOSE (test code = GLU) 156 mg/dL 74-106 H BLOOD UREA NITROGEN (test code = BUN) 35 mg/dL 7-18 H GLOMERULAR FILTRATION RATE (test code = GFR) 18 mL/min >=60 Estimated GFR by using Modified MDRD formula.Chronic kidney disease is defined as either kidney damageor GFR <60 mL/min/1.73 m2 for >3 months. CREATININE (test code = CREAT) 2.60 mg/dL 0.55-1.02 H Note change in reference range due to change in reagent. BUN/CREATININE RATIO (test code = BUN/CREA) 13.5 10-20 N CALCIUM (test code = CA) 8.0 mg/dL 8.5-10.1 L [id number] 07:12:00* Test Item Value Reference Range Interpretation Comments PHOSPHORUS (test code = PHOS) 4.3 mg/dL 2.5-4.9 N [id number] 07:12:00* Test Item Value Reference Range Interpretation Comments MAGNESIUM (test code = MAG) 1.9 mg/dL 1.8-2.4 N CALCIUM [id number] 07:12:00* Test Item Value Reference Range Interpretation Comments CALCIUM IONIZED (test code = ERICH) 1.16 mmol/L 1.12-1.32 N BASIC METABOLIC [id number] 07:09:00* Test Item Value Reference Range Interpretation Comments SODIUM (test code = NA) 142 mmol/L 136-145 N POTASSIUM (test code = K) 3.0 mmol/L 3.5-5.1 L CHLORIDE (test code = CL) 108.0 mmol/L 98-107 H CARBON DIOXIDE (test code = CO2) 24.0 mmol/L 21-32 N ANION GAP (test code = GAP) 13.0 10-20 N GLUCOSE (test code = GLU) 156 mg/dL 74-106 H BLOOD UREA NITROGEN (test code = BUN) 35 mg/dL 7-18 H GLOMERULAR FILTRATION RATE (test code = GFR) 18 mL/min >=60 Estimated GFR by using Modified MDRD formula.Chronic kidney disease is defined as either kidney damageor GFR <60 mL/min/1.73 m2 for >3 months. CREATININE (test code = CREAT) 2.60 mg/dL 0.55-1.02 H Note change in reference range due to change in reagent. BUN/CREATININE RATIO (test code = BUN/CREA) 13.5 10-20 N CALCIUM (test code = CA) 8.0 mg/dL 8.5-10.1 L [id number] 07:09:00* Test Item Value Reference Range Interpretation Comments PHOSPHORUS (test code = PHOS) 4.3 mg/dL 2.5-4.9 N [id number] 07:09:00* Test Item Value Reference Range Interpretation Comments MAGNESIUM (test code = MAG) 1.9 mg/dL 1.8-2.4 N CALCIUM [id number] 07:09:00* Test Item Value Reference Range Interpretation Comments CALCIUM IONIZED (test code = ERICH) mmol/L 1.12-1.32 BASIC METABOLIC [id number] 07:03:00* Test Item Value Reference Range Interpretation Comments SODIUM (test code = NA) 142 mmol/L 136-145 N POTASSIUM (test code = K) 3.0 mmol/L 3.5-5.1 L CHLORIDE (test code = CL) 108.0 mmol/L 98-107 H CARBON DIOXIDE (test code = CO2) mmol/L 21-32 ANION GAP (test code = GAP) 10-20 GLUCOSE (test code = GLU) mg/dL 74-106 BLOOD UREA NITROGEN (test code = BUN) mg/dL 7-18 GLOMERULAR FILTRATION RATE (test code = GFR) mL/min >=60 CREATININE (test code = CREAT) mg/dL 0.55-1.02 BUN/CREATININE RATIO (test code = BUN/CREA) 10-20 CALCIUM (test code = CA) mg/dL 8.5-10.1 [id number] 07:03:00* Test Item Value Reference Range Interpretation Comments PHOSPHORUS (test code = PHOS) mg/dL 2.5-4.9 [id number] 07:03:00* Test Item Value Reference Range Interpretation Comments MAGNESIUM (test code = MAG) mg/dL 1.8-2.4 CALCIUM [id number] 07:03:00* Test Item Value Reference Range Interpretation Comments CALCIUM IONIZED (test code = ERICH) mmol/L 1.12-1.32 LACTIC [id number] 06:43:00* Test Item Value Reference Range Interpretation Comments LACTIC ACID (test code = LACT) 1.2 mmol/L 0.4-1.9 N VENOUS BLOOD [id number] 05:32:00* Test Item Value Reference Range Interpretation Comments VENOUS BLOOD GAS PH (test code = PHV) 7.45 7.30-7.40 H VENOUS BLOOD GAS PCO2 (test code = PCO2V) 37.5 mm Hg 39.0-51.0 L VENOUS BLOOD GAS PO2 (test code = PO2V) < 39.6 mm Hg 30.0-50.0 N VBG HCO3 (test code = HCO3V) 25.2 mmol/L 17.0-30.0 N VBG BASE EXCESS (test code = CELESTINO) 1.1 mmol/L -5.0-5.0 N VENOUS BLOOD GAS O2 SAT. (test code = O2SATV) 73 % 94-98 LL VENOUS BLOOD GAS FIO2 (test code = FIO2V) 40.0 VBG VENT MODE (test code = MODEV) Assist Control LEENA. BLOOD GAS RESP. RATE (test code = RRV) 14.0 per min VBG TIDAL VOLUME (test code = TVV) 500.0 VENOUS BLOOD GAS PEEP (test code = PEEPV) 5.0 cmH2O PT. HGB (test code = PHGBVBG) 7.0 gram/dL 11.5-15.5 L VENOUS BLOOD GAS SITE (test code = SITEV) OT HEMATOCRIT (test code = HCT/VBG) 21 % 42-52 L HGB O2 SAT (test code = HBOSAT) 72.4 % 94.00-98.00 LL CARBOXYHEMOGLOBIN (test code = HOHGBT) 0.1 %totalHg 0.5-1.5 LL Results called to and read back by Jacqueline : - 12/15/2018; by Romero METHEMOGLOBIN (test code = METHGB) 1.1 % 0.0-1.50 N LACTIC [id number] 18:52:00* Test Item Value Reference Range Interpretation Comments LACTIC ACID (test code = LACT) 1.3 mmol/L 0.4-1.9 N HGB [id number] 18:48:00* Test Item Value Reference Range Interpretation Comments HEMOGLOBIN (test code = HGB) 5.8 gram/dL 11.5-15.5 L RESULTS CALLED TO [id number] BY V.[email or web address] 12/14/181847 RESULT VERIFIED BY REPEAT ANALYSIS HEMATOCRIT (test code = HCT) 17.8 % 36.0-46.0 LL Results called to [id number] by V.[email or web address] 12/14/181847Critical results verified and read back by Nurse? Y PROTHROMBIN [id number] 18:48:00* Test Item Value Reference Range Interpretation Comments PROTHROMBIN TIME PATIENT (test code = PTP) 18.7 seconds 9.0-14.0 H INTERNATIONAL NORMAL RATIO (test code = INR) 1.6 0.8-1.2 H The therapeutic range for oral anticoagulant therapy formost indications is an international normalized ratio (INR)of between 2.0 and 3.0. The recommended therapeutic INRrange for various clinical situations is listed below: Clinical Situation INR range Pulmonary e mbolism treatment (2.0-3.0)Venous thrombosis treatmentVenous thrombosis prophylaxis (high risk surgery)Prevention of systemic embolism from: Acute myocardial infarction Valvular heart disease Atrial fibrillation Mechanical prosthetic heart valves (2.5-3.5) IS PATIENT ON ANTICOAGULANTS? NSPECIMEN COMMENTS: BLOOD IN LAB COMMENTS TO PHLEB OTOMIST: BLOOD IN LABLACTIC [id number] 15:41:00* Test Item Value Reference Range Interpretation Comments LACTIC ACID (test code = LACT) 3.5 mmol/L 0.4-1.9 HH Results called to [id number]\\Valarie V.LAB.KNG1 12/14/18 1541Critical results verified and read back by Nurse? Y - CT ABD PELVIS W/O [id number] 13:43:00 Name: MOJGAN CUMMINGS [facility] : 1950 Age/S: 68 / F [address] Unit #: [id number] Loc: [place] [address] Phys: Mauro Augustin MD Acct: [id number] Dis Date: Status: DIS IN PHONE #: [phone] Exam Date: 12/14/2018 1323 FAX #: [phone] Reason: retroperitoneal hematoma r/o EXAMS: CPT CODE: [id number] CT ABD PELVIS W/O CONT 86213 REASON FOR EXAM: retroperitoneal hematoma r/o EXAM ORDER DATE: 12/14/2018 7:51 AM Ordering M.D.: Mauro Augustin MD PROCEDURE: - CT ABD PELVIS W/O CONT noncontrast enhanced axial CT images were acquired through the abdomen/pelvis at 5 mm intervals. Sagittal and coronal reformatted images were generated. Automated exposure control was utilized for this reduction. Phases: venous and delayed COMPARISON: N one FINDINGS: The lung bases show bilateral small p leural effusions (right larger than left) with compressive atelectasis. No evidence of pericardial effusion. Hepatic steatosis with no evidence of focal lesions. The gallbladder appears normal. The spleen, and adrenals appear normal. No evidence of hydronephrosis or n ephrolithiasis. A gastrostomy tube is in place. No dilated bowel l oops are seen. Sigmoid diverticulosis with no evidence of diverticulitis. The urinary bladder is collapsed around a Saunders catheter. A left inguinal hernia is seen with a part of descending/sigmoid colon. A large, likely intraperitoneal, hematoma is seen on the right side of the abdomen, extending from the subdiaphragmatic location to inferiorly abutting the right abdominal wall, where it measures approximately 15.6 x 10.0 cm (series 2 image 59). More inferiorly in the right side of the pelv is it measures 8.4 x 6.9 cm (series 2 image 88). Surrounding fat stranding is seen. The bones reveals scoliosis and extensive degenerative c hanges. A fat-containing abdominal wall hernia seen in the right lower saurabh drant of the abdomen. PAGE 1 Signed Rep ort (CONTINUED) Name: MOJGAN CUMMINGS [facility] : 1950 Age/S: 68 / F [address] Unit #: [id number] Loc: [place] [address] Phys: Mauro Augustin MD Acct: [id number] Dis Date: Status: DIS IN PHONE #: [phone] Exam Date: 12/14/2018 1323 FAX #: [phone] Reason: retroperitoneal hematoma r/o EXAMS: CPT CODE: [id number] CT ABD PELVIS W/O CONT 29002 <Continued> IMPRESSION: Large hematoma extending from the right side of the abdomen into the pelvis, likely intraperitoneal. Bilateral pleural effusions (right larger than left). Hepatic steatosis. Sigmoid diverticulosis. Bowel containing left-sided inguinal hernia. Gastrostomy tube is in place. at 1343 Reported and signed by: Vannesa Grant M.D. CC: Mauro Augustin MD; Ilan Stein Technologist:Dmitri Cortes RT(R),(MR),(CT); CTDI: DLP: Trnscb Date/Time: 12/14/2018 (5853) [email or web address] Orig Print D/T: S: 12/14/2018 (2115) PAGE 2 Signed Report - CT ABD PELVIS W/O CONT 2018-12-14 13:43:00 Name: MOJGAN CUMMINGS [facility] : 1950 Age/S: 68 / F [address] [facility] Unit #: [id number] Loc: [place] [address] Phys: Mauro Augustin MD Acct: [id number] Dis Date: Status: ADM IN PHONE #: [phone] Exam Date: 12/14/2018 1323 FAX #: [phone] Reason: retroperitoneal hematoma r/o EXAMS: CPT CODE: [id number] CT ABD PELVIS W/O CONT 41501 REASON FOR EXAM: retroperitoneal hematoma r/o EXAM ORDER DATE: 12/14/2018 7:51 AM Ordering Crispin: Mauro Augustin MD PROCEDURE: - CT ABD PELVIS W/O CONT noncontrast enhanced axial CT images were acquired through the abdomen/pelvis at 5 mm intervals. Sagittal and coronal reformatted images were generated. Automated exposure control was utilized for this reduction. Phases: venous and delayed COMPARISON: None FINDINGS: The lung bases show bilateral small pleural effusions (right larger than left) with compressive atelectasis. No evidence of pericardial effusion. Hepatic steatosis with no evidence of focal lesions. The gallbladder appears normal. The spleen, and adrenals appear normal. No evidence of hydronephrosis or nephrolithiasis. A gastrostomy tube is in place. No dilated bowel loops are seen. Sigmoid diverticulosis with no evidence of diverticulitis. The urinary bladder is collapsed around a Saunders catheter. A left inguinal hernia is seen with a part of descending/sigmoid colon. A large, likely intraperitoneal, hematoma is seen on the right side of the abdomen, extending from the subdiaphragmatic location to inferiorly abutting the right abdominal wall, where it measures approximately 15.6 x 10.0 cm (series 2 image 59). More inferiorly in the right side of the pelvis it measures 8.4 x 6.9 cm (series 2 image 88). Surrounding fat stranding is seen. The bones reveals scoliosis and extensive degenerative c hanges. A fat-containing abdominal wall hernia seen in the right lower saurabh drant of the abdomen. PAGE 1 Signed Rep ort (CONTINUED) Name: MOJGAN CUMMINGS [facility] : 1950 Age/S: 68 / F [address] [facility] Unit #: [id number] Loc: [place] [address] Phys: Mauro Augustin MD Acct: [id number] Dis Date: Status: ADM IN PHONE #: [phone] Exam Date: 12/14/2018 1323 FAX #: [phone] Reason: retroperitoneal hematoma r/o EXAMS: CPT CODE: [id number] CT ABD PELVIS W/O CONT 75096 <Continued> IMPRESSION: Large hematoma extending from the right side of the abdomen into the pelvis, likely intraperitoneal. Bilateral pleural effusions (right larger than left). Hepatic steatosis. Sigmoid diverticulosis. Bowel containing left-sided inguinal hernia. Gastrostomy tube is in place. at 1343 Reported and signed by: Vannesa Grant M.D. CC: Mauro Augustin MD; Ilan Stein Technologist:Dmitri Cortes RT(R),(MR),(CT); CTDI: DLP: Trnscb Date/Time: 12/14/2018 (6033) [email or web address] Orig Print D/T: S: 12/14/2018 (3158) CTDI: DLP: PAGE 2 Signed Report - CT ABD PELVIS W/O [id number] 13:43:00 Name: MOJGAN CUMMINGS [facility] : 1950 Age/S: 68 / F [address] [facility] Unit #: [id number] Loc: [place] [address] Phys: Mauro Augustin MD Acct: [id number] Dis Date: Status: DIS IN PHONE #: [phone] Exam Date: 12/14/2018 1323 FAX #: [phone] Reason: retroperitoneal hematoma r/o EXAMS: CPT CODE: [id number] CT ABD PELVIS W/O CONT 20648 REASON FOR EXAM: retroperitoneal hematoma r/o EXAM ORDER DATE: 12/14/2018 7:51 AM Ordering M.D.: Mauro Augustin MD PROCEDURE: - CT ABD PELVIS W/O CONT noncontrast enhanced axial CT images were acquired through the abdomen/pelvis at 5 mm intervals. Sagittal and coronal reformatted images were generated. Automated exposure control was utilized for this reduction. Phases: venous and delayed COMPARISON: None FINDINGS: The lung bases show bilateral small pleural effusions (right larger than left) with compressive atelectasis. No evidence of pericardial effusion. Hepatic steatosis with no evidence of focal lesions. The gallbladder appears normal. The spleen, and adrenals appear normal. No evidence of hydronephrosis or n ephrolithiasis. A gastrostomy tube is in place. No dilated bowel l oops are seen. Sigmoid diverticulosis with no evidence of diverticulitis. The urinary bladder is collapsed around a Saunders catheter. A left inguinal hernia is seen with a part of descending/sigmoid colon. A large, likely intraperitoneal, hematoma is seen on the right side of the abdomen, extending from the subdiaphragmatic location to inferiorly abutting the right abdominal wall, where it measures approximately 15.6 x 10.0 cm (series 2 image 59). More inferiorly in the right side of the pelv is it measures 8.4 x 6.9 cm (series 2 image 88). Surrounding fat stranding is seen. The bones reveals scoliosis and extensive degenerative c hanges. A fat-containing abdominal wall hernia seen in the right lower saurabh drant of the abdomen. PAGE 1 Signed Rep ort (CONTINUED) Name: MOJGAN CUMMINGS [facility] : 1950 Age/S: 68 / F [address] Unit #: [id number] Loc: [place] [address] Phys: Mauro Augustin MD Acct: [id number] Dis Date: Status: DIS IN PHONE #: [phone] Exam Date: 12/14/2018 1323 FAX #: [phone] Reason: retroperitoneal hematoma r/o EXAMS: CPT CODE: [id number] CT ABD PELVIS W/O CONT 55083 <Continued> IMPRESSION: Large hematoma extending from the right side of the abdomen into the pelvis, likely intraperitoneal. Bilateral pleural effusions (right larger than left). Hepatic steatosis. Sigmoid diverticulosis. Bowel containing left-sided inguinal hernia. Gastrostomy tube is in place. at 1343 Reported and signed by: Vannesa Grant M.D. CC: Mauro Augustin MD; Ilan Stein Technologist:Dmitri Cortes RT(R),(MR),(CT); CTDI: DLP: Trnscb Date/Time: 12/14/2018 (1343) [email or web address] Orig Print D/T: S: 12/14/2018 (1346) PAGE 2 Signed Report LACTIC [id number] 12:57:00* Test Item Value Reference Range Interpretation Comments LACTIC ACID (test code = LACT) 3.7 mmol/L 0.4-1.9 HH Results called to [id number] by CHRISTIE 12/14/18 1257Critical results verified and read back by Nurse? Y HEPATIC FUNCTION [id number] 10:46:00* Test Item Value Reference Range Interpretation Comments TOTAL PROTEIN (test code = PROT) 4.2 gram/dL 6.4-8.2 L ALBUMIN (test code = ALB) 2.0 g/dL 3.4-5.0 L GLOBULIN (test code = GLOB) 2.2 gram/dL 2.7-4.2 L ALBUMIN/GLOBULIN RATIO (test code = A/G) 0.9 0.75-1.50 N BILIRUBIN TOTAL (test code = BILT) 0.80 mg/dL 0.0-1.0 N BILIRUBIN DIRECT (test code = BILD) 0.38 mg/dL 0.0-0.20 H SGOT/AST (test code = AST) 115 IUnit/L 15-37 H SGPT/ALT (test code = ALT) 30 IUnit/L 12-78 N ALKALINE PHOSPHATASE TOTAL (test code = ALKP) 102 IUnit/L 45-117 N Note change in reference range due to change in reagent. SPECIMEN COMMENTS: ok to use blood in lab- XR CHEST 1 [id number] 10:28:00 FAX: Ilan Holt MD [place]: B St: DIS FAX: Ashley Juarez NP [phone] Name: MOJGAN CUMMINGS [facility] : 1950 Age/S: 68/F [address] [facility] Unit #: [id number] Loc: [place] [address] Phys: Ashley Hendrix NP Acct: [id number] Dis Date: Status: DIS IN PHONE #: [phone] Exam Date: 12/14/2018 1001 FAX #: [phone] Reason: CENTRAL LINE PLACEMENT EXAMS: CPT CODE: [id number] XR CHEST 1 V 23593 HISTORY: Central line placement. COMPARISON: Same day. Tracheostomy tube is unchanged. Right jugular c entral line with the tip projected over the SVC without pneumothorax. The lungs are clear. Cardiac silhouette is normal. IMPRESSION: Right jugular central line with the tip projected over the SVC with out pneumothorax. at 1028 Reported and signed by: Clem watters M.D. CC: Ilan Stein; Ashley Hendrix NP Technologist: OCTAVIO VASQUEZ JR Trnwyrd Date/Time/By: 12/14/2018 (1028) : By: [email or web address] Orig Print D/T: S: 12/14/2018 (2302) PAGE 1 Signed Report - XR CHEST 1 [id number] 10:28:00 FAX: Ilan Holt MD [place]: B St: ADM FAX: Ashley Juarez NP [phone] Name: MOJGAN CUMMINGS [facility] : 1950 Age/S: 68/F [address] [facility] Unit #: [id number] Loc: [address] [place] [address] Phys: Ashley Hendrix NP Acct: [id number] Dis Date: Status: ADM IN PHONE #: [phone] Exam Date: 12/14/2018 1001 FAX #: [phone] Reason: CENTRAL LINE PLACEMENT EXAMS: CPT CODE: [id number] XR CHEST 1 V 14407 HISTORY: Central line placement. COMPARISON: Same day. Tracheostomy tube is unchanged. Right jugular c entral line with the tip projected over the SVC without pneumothorax. The lungs are clear. Cardiac silhouette is normal. IMPRESSION: Right jugular central line with the tip projected over the SVC with out pneumothorax. at 1028 Reported and signed by: Clem watters M.D. CC: Torsten Stein Heather NP Technologist: OCTAVIO VASQUEZ JR Trnscrd Date/Time/By: 12/14/2018 (1028) : By: [email or web address] Orig Print D/T: S: 12/14/2018 (9001) PAGE 1 Signed Report - XR CHEST 1 [id number] 10:28:00 FAX: Ilan Holt MD [place]: St: DIS FAX: Ashley Juarez NP [phone] Name: ZOILAMOJGANRAFFI MOLINA [facility] : 1950 Age/S: 68/F [address] Unit #: [id number] Loc: [facility] [place] [address] Phys: Ashley Hendrix NP Acct: [id number] Dis Date: Status: DIS IN PHONE #: [phone] Exam Date: 12/14/2018 1001 FAX #: [phone] Reason: CENTRAL LINE PLACEMENT EXAMS: CPT CODE: [id number] XR CHEST 1 V 23476 HISTORY: Central line placement. COMPARISON: Same day. Tracheostomy tube is unchanged. Right jugular c entral line with the tip projected over the SVC without pneumothorax. The lungs are clear. Cardiac silhouette is normal. IMPRESSION: Right jugular central line with the tip projected over the SVC with out pneumothorax. at 1028 Reported and signed by: Clem watters M.D. CC: Torsten Stein Heather NP Technologist: OCTAVIO VASQUEZ JR Trnscrd Date/Time/By: 12/14/2018 (1028) : By: [email or web address] Orig Print D/T: S: 12/14/2018 (2525) PAGE 1 Signed Report LACTIC [id number] 09:29:00* Test Item Value Reference Range Interpretation Comments LACTIC ACID (test code = LACT) 6.5 mmol/L 0.4-1.9 HH Results called to [id number] by CHRISTIE 12/14/18 0929Critical results verified and read back by Nurse? Y CBC W/MANUAL [id number] 08:14:00* Test Item Value Reference Range Interpretation Comments WHITE BLOOD CELL (test code = WBC) 27.4 K/mm3 4.5-12.5 H RED BLOOD CELL (test code = RBC) 2.43 mill/mm3 3.7-5.2 L HEMOGLOBIN (test code = HGB) 6.9 gram/dL 11.5-15.5 L HEMATOCRIT (test code = HCT) 22.9 % 36.0-46.0 L MEAN CELL VOLUME (test code = MCV) 94.2 fL 80-98 RESULT VERIFIED BY REPEAT ANALYSIS MEAN CELL HGB (test code = MCH) 28.4 picogram 27.0-33.0 N MEAN CELL HGB CONCETRATION (test code = MCHC) 30.1 gram/dL 33.0-36. 0 L RED CELL DISTRIBUTION WIDTH (test code = RDW) 16.7 % 11.6-16. 2 H RED CELL DISTRIBUTION WIDTH SD (test code = RDW-SD) 55.8 fL 37 .0-51.0 H PLATELET COUNT (test code = PLT) 82 K/mm3 150-450 L MEAN PLATELET VOLUME (test code = MPV) TEST NOT PERFORMED fL 6.7-11 .0 Unable to determine due to platelet abnormality , please seethe platelet morphology. IMMATURE GRANULOCYTE % (test code = IG%) 5.3 % 0.0-5.0 H "The appearance of immature granulocytes (myelocytes,pro-myelocytes, meta-myelocytes) in the peripheral blood ofnon- individuals can indicate a response toinfection, inflammation, or other stimulus to the bonemarrow" NUCLEATED RBC % (test code = NRBC%) 0.1 % 0-0 H NEUTROPHIL # (test code = NT#) 23.09 K/mm3 1.8-7.7 H IMMATURE GRANULOCYTE # (test code = IG#) 1.46 x10 3/uL 0-0.03 H LYMPHOCYTE # (test code = LY#) 1.74 K/mm3 1.0-5.0 N MONOCYTE # (test code = MO#) 1.09 K/mm3 0-0.8 H EOSINOPHIL # (test code = EO#) 0.00 K/mm3 0.0-0.5 N BASOPHIL # (test code = BA#) 0.04 K/mm3 0.0-0.2 N NUCLEATED RBC # (test code = NRBC#) 0.02 K/mm3 0.0-0.1 N MANUAL DIFF REQUIRED (test code = MDIFF) YES STAIN ACCEPTABILITY (test code = STN ACCEPTABLE) STAIN ACCEPTABLE TOTAL CELLS COUNTED (test code = TCC) 128 #CELLS SEGMENTED NEUTROPHILS (test code = SEG) 87.9 % 39-69 H BAND NEUTROPHIL (test code = BAND) 3.9 % 0-10 N LYMPHOCYTE (test code = LYMPH) 3.9 % 25-55 L REACTIVE LYMPH (test code = RELYMPH) 0.8 % MONOCYTE (test code = MON) 3.5 % 0-10 N EOSINOPHIL (test code = EOS) 0 % 0.0-5.0 N BASOPHIL (test code = BASO) 0 % 0-1.0 N METAMYELOCYTE (test code = META) 0 % 0-0 N MYELOCYTE (test code = MYELO) 0 % 0.0-0.0 N PROMYELOCYTE (test code = PROM) 0 % 0-0 N HYPOCHROMIA (test code = HYPO) 1+ POIKILOCYTOSIS (test code = POIK) 1+ ANISOCYTOSIS (test code = ANISO) 1+ ELLIPTOCYTES (test code = ELL) 1+ CRENATED CELLS (test code = CREN) 1+ PLATELET ESTIMATE (test code = PLTEST) DECREASED PLATELET MORPHOLOGY (test code = PLTMORPH) NORMAL IMMATURE FORMS (test code = IMMAT) 0 % BASIC METABOLIC [id number] 07:19:00* Test Item Value Reference Range Interpretation Comments SODIUM (test code = NA) 140 mmol/L 136-145 N POTASSIUM (test code = K) 4.2 mmol/L 3.5-5.1 N CHLORIDE (test code = CL) 109.0 mmol/L 98-107 H CARBON DIOXIDE (test code = CO2) 14.0 mmol/L 21-32 L ANION GAP (test code = GAP) 21.2 10-20 H GLUCOSE (test code = GLU) 101 mg/dL 74-106 N BLOOD UREA NITROGEN (test code = BUN) 31 mg/dL 7-18 H GLOMERULAR FILTRATION RATE (test code = GFR) 19 mL/min >=60 Estimated GFR by using Modified MDRD formula.Chronic kidney disease is defined as either kidney damageor GFR <60 mL/min/1.73 m2 for >3 months. CREATININE (test code = CREAT) 2.50 mg/dL 0.55-1.02 H Note change in reference range due to change in reagent. BUN/CREATININE RATIO (test code = BUN/CREA) 12.4 10-20 N CALCIUM (test code = CA) 7.7 mg/dL 8.5-10.1 L LACTIC [id number] 07:12:00* Test Item Value Reference Range Interpretation Comments LACTIC ACID (test code = LACT) 8.1 mmol/L 0.4-1.9 Results called to [id number] by VCLARISSA 12/14/18 0712Critical results verified and read back by Nurse? Y BASIC METABOLIC [id number] 07:09:00* Test Item Value Reference Range Interpretation Comments SODIUM (test code = NA) 140 mmol/L 136-145 N POTASSIUM (test code = K) 4.2 mmol/L 3.5-5.1 N CHLORIDE (test code = CL) 109.0 mmol/L 98-107 H CARBON DIOXIDE (test code = CO2) mmol/L 21-32 ANION GAP (test code = GAP) 10-20 GLUCOSE (test code = GLU) mg/dL 74-106 BLOOD UREA NITROGEN (test code = BUN) mg/dL 7-18 GLOMERULAR FILTRATION RATE (test code = GFR) mL/min >=60 CREATININE (test code = CREAT) mg/dL 0.55-1.02 BUN/CREATININE RATIO (test code = BUN/CREA) 10-20 CALCIUM (test code = CA) mg/dL 8.5-10.1 CBC W/MANUAL [id number] 06:58:00* Test Item Value Reference Range Interpretation Comments WHITE BLOOD CELL (test code = WBC) 27.4 K/mm3 4.5-12.5 H RED BLOOD CELL (test code = RBC) 2.43 mill/mm3 3.7-5.2 L HEMOGLOBIN (test code = HGB) 6.9 gram/dL 11.5-15.5 L HEMATOCRIT (test code = HCT) 22.9 % 36.0-46.0 L MEAN CELL VOLUME (test code = MCV) 94.2 fL 80-98 RESULT VERIFIED BY REPEAT ANALYSIS MEAN CELL HGB (test code = MCH) 28.4 picogram 27.0-33.0 N MEAN CELL HGB CONCETRATION (test code = MCHC) 30.1 gram/dL 33.0-36. 0 L RED CELL DISTRIBUTION WIDTH (test code = RDW) 16.7 % 11.6-16. 2 H RED CELL DISTRIBUTION WIDTH SD (test code = RDW-SD) 55.8 fL 37 .0-51.0 H PLATELET COUNT (test code = PLT) 82 K/mm3 150-450 L MEAN PLATELET VOLUME (test code = MPV) TEST NOT PERFORMED fL 6.7-11 .0 Unable to determine due to platelet abnormality , please seethe platelet morphology. IMMATURE GRANULOCYTE % (test code = IG%) 5.3 % 0.0-5.0 H "The appearance of immature granulocytes (myelocytes,pro-myelocytes, meta-myelocytes) in the peripheral blood ofnon- individuals can indicate a response toinfection, inflammation, or other stimulus to the bonemarrow" NUCLEATED RBC % (test code = NRBC%) 0.1 % 0-0 H NEUTROPHIL # (test code = NT#) 23.09 K/mm3 1.8-7.7 H IMMATURE GRANULOCYTE # (test code = IG#) 1.46 x10 3/uL 0-0.03 H LYMPHOCYTE # (test code = LY#) 1.74 K/mm3 1.0-5.0 N MONOCYTE # (test code = MO#) 1.09 K/mm3 0-0.8 H EOSINOPHIL # (test code = EO#) 0.00 K/mm3 0.0-0.5 N BASOPHIL # (test code = BA#) 0.04 K/mm3 0.0-0.2 N NUCLEATED RBC # (test code = NRBC#) 0.02 K/mm3 0.0-0.1 N MANUAL DIFF REQUIRED (test code = MDIFF) YES STAIN ACCEPTABILITY (test code = STN ACCEPTABLE) TOTAL CELLS COUNTED (test code = TCC) #CELLS SEGMENTED NEUTROPHILS (test code = SEG) % 39-69 LYMPHOCYTE (test code = LYMPH) % 25-55 MONOCYTE (test code = MON) % 0-10 MORPHOLOGY COMMENT (test code = MOC) PLATELET ESTIMATE (test code = PLTEST) PLATELET MORPHOLOGY (test code = PLTMORPH) BASIC METABOLIC [id number] 04:15:00* Test Item Value Reference Range Interpretation Comments SODIUM (test code = NA) 142 mmol/L 136-145 N POTASSIUM (test code = K) 4.5 mmol/L 3.5-5.1 N CHLORIDE (test code = CL) 110.0 mmol/L 98-107 H CARBON DIOXIDE (test code = CO2) 10.0 mmol/L 21-32 L ANION GAP (test code = GAP) 26.5 10-20 H GLUCOSE (test code = GLU) 84 mg/dL 74-106 N BLOOD UREA NITROGEN (test code = BUN) 33 mg/dL 7-18 H GLOMERULAR FILTRATION RATE (test code = GFR) 18 mL/min >=60 Estimated GFR by using Modified MDRD formula.Chronic kidney disease is defined as either kidney damageor GFR <60 mL/min/1.73 m2 for >3 months. CREATININE (test code = CREAT) 2.60 mg/dL 0.55-1.02 H Note change in reference range due to change in reagent. BUN/CREATININE RATIO (test code = BUN/CREA) 12.7 10-20 N CALCIUM (test code = CA) 7.7 mg/dL 8.5-10.1 L [id number] 04:15:00* Test Item Value Reference Range Interpretation Comments PHOSPHORUS (test code = PHOS) 5.4 mg/dL 2.5-4.9 H [id number] 04:15:00* Test Item Value Reference Range Interpretation Comments MAGNESIUM (test code = MAG) 2.1 mg/dL 1.8-2.4 N LACTIC [id number] 04:13:00* Test Item Value Reference Range Interpretation Comments LACTIC ACID (test code = LACT) 12.3 mmol/L 0.4-1.9 HH Results called to [id number] by [email or web address] 12/14/18 0413Critical results verified and read back by Nurse? Y BASIC METABOLIC [id number] 04:09:00* Test Item Value Reference Range Interpretation Comments SODIUM (test code = NA) 142 mmol/L 136-145 N POTASSIUM (test code = K) 4.5 mmol/L 3.5-5.1 N CHLORIDE (test code = CL) 110.0 mmol/L 98-107 H CARBON DIOXIDE (test code = CO2) mmol/L 21-32 ANION GAP (test code = GAP) 10-20 GLUCOSE (test code = GLU) mg/dL 74-106 BLOOD UREA NITROGEN (test code = BUN) mg/dL 7-18 GLOMERULAR FILTRATION RATE (test code = GFR) mL/min >=60 CREATININE (test code = CREAT) mg/dL 0.55-1.02 BUN/CREATININE RATIO (test code = BUN/CREA) 10-20 CALCIUM (test code = CA) mg/dL 8.5-10.1 [id number] 04:09:00* Test Item Value Reference Range Interpretation Comments PHOSPHORUS (test code = PHOS) mg/dL 2.5-4.9 [id number] 04:09:00* Test Item Value Reference Range Interpretation Comments MAGNESIUM (test code = MAG) mg/dL 1.8-2.4 PROTHROMBIN [id number] 04:07:00* Test Item Value Reference Range Interpretation Comments PROTHROMBIN TIME PATIENT (test code = PTP) 25.1 seconds 9.0-14.0 H INTERNATIONAL NORMAL RATIO (test code = INR) 2.1 0.8-1.2 H The therapeutic range for oral anticoagulant therapy formost indications is an international normalized ratio (INR)of between 2.0 and 3.0. The recommended therapeutic INRrange for various clinical situations is listed below: Clinical Situation INR range Pulmonary e mbolism treatment (2.0-3.0)Venous thrombosis treatmentVenous thrombosis prophylaxis (high risk surgery)Prevention of systemic embolism from: Acute myocardial infarction Valvular heart disease Atrial fibrillation Mechanical prosthetic heart valves (2.5-3.5) IS PATIENT ON ANTICOAGULANTS? NTHROMBOPLASTIN TIME [id number] 04:07:00* Test Item Value Reference Range Interpretation Comments THROMBOPLASTIN TIME PARTIAL (test code = PTT) 24.3 seconds 25.0-36. 5 L IS PATIENT ON ANTICOAGULANTS? N- XR CHEST 1 [id number] 01:25:00 FAX: Justin Doran [place]: St: DIS FAX: Ilan Holt MD Name: MOJGAN CUMMINGS [facility] : 1950 Age/S: 68/F [address] [facility] Unit #: [id number] Loc: [place] [address] Phys: Justin Doran Acct: [id number] Dis Date: Status: DIS IN PHONE #: [phone] Exam Date: 12/14/2018 012 FAX #: [phone] Reason: shortness of breath, desaturation EXAMS: CPT CODE: [id number] XR CHEST 1 V 62883 LOCATION: Q15 HISTORY: 68-year-old female who pres ents with dyspnea. COMMENT: A frontal chest radiogra ph is obtained at 1:12 a.m., and compared to study of December 12, 2018. The lungs are clear. The cardiac silhouette, toro, and mediastinum are unremarkable. The skeleton and soft tissues are unremarkable. Again seen is a tracheostomy tube. Cardiac monitoring leads are present. IMPRESSION: There is no radiographic evidence of acute cardiopulmonary disease. at 0125 Reported and signed by: Misty Gomez M.D. CC: Justin Doran; Ilan Stein Technologist: Abigail Darling Trnscrd Date/Time/By: 12/14/2018 (0125) : By: [email or web address] Orig Print D/T: S: 12/14/2018 (0124) PAGE 1 Signed Report - XR CHEST 1 [id number] 01:25:00 FAX: Justin Doran [place]: B St: ADM FAX: Y Ilan Stein MD Name: MOJGAN CUMMINGS [facility] : 1950 Age/S: 68/F [address] [facility] Unit #: [id number] Loc: [facility] [place] [address] Phys: Justin Doran Acct: [id number] Dis Date: Status: ADM IN PHONE #: [phone] Exam Date: 12/14/2018 0123 FAX #: [phone] Reason: shortness of breath, desaturation EXAMS: CPT CODE: [id number] XR CHEST 1 V 79414 LOCATION: Q15 HISTORY: 68-year-old female who pres ents with dyspnea. COMMENT: A frontal chest radiogra ph is obtained at 1:12 a.m., and compared to study of December 12, 2018. The lungs are clear. The cardiac silhouette, toro, and mediastinum are unremarkable. The skeleton and soft tissues are unremarkable. Again seen is a tracheostomy tube. Cardiac monitoring leads are present. IMPRESSION: There is no radiographic evidence of acute cardiopulmonary disease. at 0125 Reported and signed by: Misty Gomez M.D. CC: Justin Doran; Ilan Stein Technologist: Abigail Darling Trnscrd Date/Time/By: 12/14/2018 (0125) : By: [email or web address] Orig Print D/T: S: 12/14/2018 (5292) PAGE 1 Signed Report - XR CHEST 1 [id number] 01:25:00 FAX: Justin Doran [place]: B St: DIS FAX: Ilan Holt MD Name: MOJGAN CUMMINGS [facility] : 1950 Age/S: 68/F [address] Unit #: [id number] Loc: [place] [address] Phys: Justin Doran Acct: [id number] Dis Date: Status: DIS IN PHONE #: [phone] Exam Date: 12/14/2018 012 FAX #: [phone] Reason: shortness of breath, desaturation EXAMS: CPT CODE: [id number] XR CHEST 1 V 93241 LOCATION: Q15 HISTORY: 68-year-old female who pres ents with dyspnea. COMMENT: A frontal chest radiogra ph is obtained at 1:12 a.m., and compared to study of December 12, 2018. The lungs are clear. The cardiac silhouette, toro, and mediastinum are unremarkable. The skeleton and soft tissues are unremarkable. Again seen is a tracheostomy tube. Cardiac monitoring leads are present. IMPRESSION: There is no radiographic evidence of acute cardiopulmonary disease. at 0125 Reported and signed by: Misty Gomez M.D. CC: Justin Doran; Ilan Stein Technologist: Abigail Darling Trnscrd Date/Time/By: 12/14/2018 (012) : By: [email or web address] Orig Print D/T: S: 12/14/2018 (0129) PAGE 1 Signed Report BASIC METABOLIC [id number] 00:25:00* Test Item Value Reference Range Interpretation Comments SODIUM (test code = NA) 141 mmol/L 136-145 N POTASSIUM (test code = K) 4.2 mmol/L 3.5-5.1 N CHLORIDE (test code = CL) 110.0 mmol/L 98-107 H CARBON DIOXIDE (test code = CO2) 11.0 mmol/L 21-32 L ANION GAP (test code = GAP) 24.2 10-20 H GLUCOSE (test code = GLU) 123 mg/dL 74-106 H BLOOD UREA NITROGEN (test code = BUN) 33 mg/dL 7-18 H RESULT VERIFIED BY REPEAT ANALYSIS GLOMERULAR FILTRATION RATE (test code = GFR) 17 mL/min >=60 Estimated GFR by using Modified MDRD formula.Chronic kidney disease is defined as either kidney damageor GFR <60 mL/min/1.73 m2 for >3 months. CREATININE (test code = CREAT) 2.70 mg/dL 0.55-1.02 H Note change in reference range due to change in reagent. BUN/CREATININE RATIO (test code = BUN/CREA) 12.2 10-20 N CALCIUM (test code = CA) 7.4 mg/dL 8.5-10.1 L PROCALCITONIN (PCT)2018-12-14 00:23:00* Test Item Value Reference Range Interpretation Comments PROCALCITONIN (PCT) (test code = PROCAL) 3.87 ng/ml Results called to [id number] by [email or web address] 12/14/18 0023Critical results verified and read back by Nurse? YConcentration Interpretation (ng/mL) <0.51 Sepsis is not likely. Local bacterial infection is possible. (LOW RISK for progression to Sepsis) 0.51 - 2.00 Sepsis is possible, but other conditions are known to elevate PCT as well. (MODERATE RISK for progression to Sepsis) > 2.00 Sepsis is likely, unless other causes are known. (HIGH RISK for progression to Severe Sepsis or Septic Shock) 10.00 High likelihood of Severe Sepsis or Septic or higher Shock. *Increased PCT levels may not always be related to systemic bacterial infection.*Low PCT levels do not automatically exclude the presence of bacterial infection.*All results should be interpreted taking into account the patients history. LACTIC [id number] 00:23:00* Test Item Value Reference Range Interpretation Comments LACTIC ACID (test code = LACT) 11.3 mmol/L 0.4-1.9 HH Results called to [id number] by [email or web address] 12/14/18 0023Critical results verified and read back by Nurse? Y - US RETRO [id number] 00:02:00 Name: MOJGAN CUMMINGS [facility] : 1950 Age/S: 68 / F [address] [facility] Unit #: [id number] Loc: [place] [address] Phys: Justin Doran Acct: [id number] Dis Date: Status: DIS IN PHONE #: [phone] Exam Date: 12/13/2018 2338 FAX #: [phone] Reason: R groing hematoma with possible retroperitoneal EXAMS: CPT CODE: [id number] US RETRO LTD 34578 HISTORY: Groin hematoma Location: C3 FINDINGS: The right kidney measures 10.3 x 4.2cm and the left measures 9.6 x 4.5 cm. No cystic lesions demonstrated. No solid renal mass is demonstrated. No hydronephrosis. There is normal renal cortical thickness and echogenicity. No other soft tissue mass or fluid collection demonstrated. Right pleural effusion is noted. IMPRESSION: 1. No hydronephrosis. No retroperitoneal mass or fluid collection. If there is clinical concern for retroperitoneal hemorrhage follow-up CT is suggested as this is a more sensitive and specific evaluation for the presence or absence of retroperitoneal hemorrhage. at 0002 Reported and signed by: Misty Vizcarra MD CC: Justin Doran; Ilan Stein Technologist: Akua Muniz RDMS Trnscb Date/Time: 12/14/2018 (0002) [email or web address] Orig Print D/T: S: 12/14/2018 (0005) Probe: PAGE 1 Signed Report - US RETRO [id number] 00:02:00 Name: MOJGAN CUMMINGS [facility] : 1950 Age/S: 68 / F [address] Unit #: [id number] Loc: [place] [address] Phys: Bennie Doran Acct: [id number] Di s Date: Status: ADM IN PHONE #: Exam Date: 12/13/2018 2339 FAX #: [phone] Reason: R groing hematoma with possible retroperitoneal EXAMS: CPT CODE: [id number] US RETRO LTD 52977 HISTORY: Groin he matoma Location: C3 FINDINGS: The right kidney measur es 10.3 x 4.2cm and the left measures 9.6 x 4.5 cm. No cystic lesion s demonstrated. No solid renal mass is demonstrated. No hydronephrosis. There is normal renal cortical thickness and echogenicity. No other so ft tissue mass or fluid collection demonstrated. Right pleural effusion i s noted. IMPRESSION: 1. No hydronephrosis. No retroperitoneal mass or fluid collection. If there is clinical concern for retroperitoneal hemorrhage follow-up CT is suggested as this is a m ore sensitive and specific evaluation for the presence or absence of ret roperitoneal hemorrhage. Electronically Signed by Misty aburto 12/14/2018 at 0002 Reported and signed by: Misty Law se, MD CC: Justin Doran; Ilan Stein Technologist: Akua Muniz RDMS Trnwyb Date/Time: 12/14/2018 (0002) [email or web address] Orig Print D/T: S: 12/14/2018 (0005) Probe: PAGE 1 Signed Report - US RETRO [id number] 00:02:00 Name: MOJGAN CMUMINGS [facility] : 1950 Age/S: 68 / F [place] Unit #: [id number] Loc: [place] [address] Phys: Bennie Doran Acct: [id number] Di s Date: Status: DIS IN PHONE #: Exam Date: 12/13/2018 2338 FAX #: Reason: R groing hematoma with possible retroperitoneal EXAMS: CPT CODE: [id number] RETRO LTD 53090 HISTORY: Groin he matoma Location: C3 FINDINGS: The right kidney measur es 10.3 x 4.2cm and the left measures 9.6 x 4.5 cm. No cystic lesion s demonstrated. No solid renal mass is demonstrated. No hydronephrosis. There is normal renal cortical thickness and echogenicity. No other so ft tissue mass or fluid collection demonstrated. Right pleural effusion i s noted. IMPRESSION: 1. No hydronephrosis. No retroperitoneal mass or fluid collection. If there is clinical concern for retroperitoneal hemorrhage follow-up CT is suggested as this is a m ore sensitive and specific evaluation for the presence or absence of ret roperitoneal hemorrhage. Electronically Signed by Misty archuleta n 12/14/2018 at 0002 Reported and signed by: Misty Law se, MD CC: Justin Doran; Ilan Stein Technologist: Akua Muniz RDMS Trnwyb Date/Time: 12/14/2018 (0002) [email or web address] Orig Print D/T: S: 12/14/2018 (0005) Probe: PAGE 1 Signed Report - [facility] NON VASC [id number] 23:57:00 Name: MOJGAN CUMMINGS [facility] : 1950 Age/S: 68 / F [address] [facility] Unit #: [id number] Loc: [place] [address] Phys: Eliecer Bateman MD Acct: [id number] Dis Date: Status: DIS IN PHONE #: [phone] Exam Date: 12/13/2018 2325 FAX #: [phone] Reason: RIGHT GROIN HEMATOMA EXAMS: CPT CODE: [id number] EXTREM NON VASC LTD 70027 HISTORY: Swelling Location: C3 FINDINGS: Sonographic images of the right inguinal region were obtained. There is a large fluid collection noted in the right upper thigh. The full extent of this collection cannot be measured given its size outside the utxrv-ar-ddzw but does measure at least 5.5 cm in depth and over 10 cm in length. IMPRESSION: 1. Large fluid collection in the right upper thigh. Given the clinical history findings are most compatible with sequelae of large hematoma. If clinically indicated CT could be performed for full extent of collection. at 2357 Reported and signed by: Misty Vizcarra MD CC: Eliecer Bateman MD; Ilan Stein Technologist: Akua Muniz RDMS Trnscb Date/Time: 12/13/2018 (6828) [email or web address] Orig Print D/T: S: 12/14/2018 (0000) Probe: PAGE 1 Signed Report - EXTREM NON VASC [id number] 23:57:00 Name: MOJGAN CUMMINGS [facility] : 1950 Age/S: 68 / F [address] [facility] Unit #: [id number] Loc: [place] [address] Phys: Sa kristi Bateman MD Acct: [id number] Di s Date: Status: ADM IN PHONE #: Exam Date: 12/13/20182324 FAX #: [phone] Reason: RIGHT GROIN HEMATOMA EXAMS: CPT CODE: [id number] EXTREM NON VASC LTD 22746 HISTORY: Swelling L ocation: C3 FINDINGS: Sonographic images of the right ingui nal region were obtained. There is a large fluid collection noted in the right upper thigh. The full extent of this collection cannot be measured given its size outside the pfgmp-km-kjlc but does measure at least 5.5 cm in depth and over 10 cm in length. IMPRESSION: 1. Large fluid collection in the right upper thigh. Given the cl inical history findings are most compatible with sequelae of large hemat chris. If clinically indicated CT could be performed for full extent of c ollection. a t 2357 Reported and signed by: Misty Vizcarra MD CC: Eliecer Bateman MD; Ilan Stein Techn ologist: Akua Muniz RDMS Trnscb Date/Time : 12/13/2018 (5368) [email or web address] Orig Print D/T: S: 12/15/19 19 (0000) Probe: PAGE 1 Signed Report - US EXTREM NON VASC [id number] 23:57:00 Name: MOJGAN CUMMINGS [facility] : 1950 Age/S: 68 / F [address] Unit #: [id number] Loc: [place] [address] Phys: Sa kristi Bateman MD Acct: [id number] Di s Date: Status: DIS IN PHONE #: [phone] Exam Date: 12/13/2018 2321 FAX #: Reason: RIGHT GROIN HEMATOMA EXAMS: CPT CODE: [id number] EXTREM NON VASC LTD 79720 HISTORY: Swelling L ocation: C3 FINDINGS: Sonographic images of the right ingui nal region were obtained. There is a large fluid collection noted in the right upper thigh. The full extent of this collection cannot be measured given its size outside the kvnmh-pg-biye but does measure at least 5.5 cm in depth and over 10 cm in length. IMPRESSION: 1. Large fluid collection in the right upper thigh. Given the cl inical history findings are most compatible with sequelae of large hemat chris. If clinically indicated CT could be performed for full extent of c ollection. a t 2138 Reported and signed by: Misty Vizcarra MD CC: Eliecer Bateman MD; Ilan Stein Techn ologist: Akua Muniz RDMS [facility] Date/Time : 12/13/2018 (606) [email or web address] Orig Print D/T: S: 12/15/19 19 (0000) Probe: PAGE 1 Signed Report [id number] 23:01:00* Test Item Value Reference Range Interpretation Comments GLUBED (test code = GLUBED) 113 mg/dL 74-106 H Performed by certified pulping machine operator at [facility] CBC W/MANUAL [id number] 22:51:00* Test Item Value Reference Range Interpretation Comments WHITE BLOOD CELL (test code = WBC) 26.6 K/mm3 4.5-12.5 H RED BLOOD CELL (test code = RBC) 2.68 mill/mm3 3.7-5.2 L HEMOGLOBIN (test code = HGB) 7.9 gram/dL 11.5-15.5 L HEMATOCRIT (test code = HCT) 27.9 % 36.0-46.0 L MEAN CELL VOLUME (test code = MCV) 104.1 fL 80-98 H RESULT VERIFIED BY REPEAT ANALYSIS MEAN CELL HGB (test code = MCH) 29.5 picogram 27.0-33.0 N MEAN CELL HGB CONCETRATION (test code = MCHC) 28.3 gram/dL 33.0-36. 0 L RED CELL DISTRIBUTION WIDTH (test code = RDW) 17.7 % 11.6-16. 2 H RED CELL DISTRIBUTION WIDTH SD (test code = RDW-SD) 66.3 fL 37 .0-51.0 H PLATELET COUNT (test code = PLT) 67 K/mm3 150-450 L RESULT VERIFIED BY REPEAT ANALYSIS MEAN PLATELET VOLUME (test code = MPV) TEST NOT PERFORMED fL 6.7-11 .0 Unable to determine due to platelet abnormality , please seethe platelet morphology. IMMATURE GRANULOCYTE % (test code = IG%) 6.6 % 0.0-5.0 H "The appearance of immature granulocytes (myelocytes,pro-myelocytes, meta-myelocytes) in the peripheral blood ofnon- individuals can indicate a response toinfection, inflammation, or other stimulus to the bonemarrow" NUCLEATED RBC % (test code = NRBC%) 0.2 % 0-0 H NEUTROPHIL # (test code = NT#) 21.56 K/mm3 1.8-7.7 H IMMATURE GRANULOCYTE # (test code = IG#) 1.76 x10 3/uL 0-0.03 H LYMPHOCYTE # (test code = LY#) 1.63 K/mm3 1.0-5.0 N MONOCYTE # (test code = MO#) 1.57 K/mm3 0-0.8 H EOSINOPHIL # (test code = EO#) 0.02 K/mm3 0.0-0.5 N BASOPHIL # (test code = BA#) 0.09 K/mm3 0.0-0.2 N NUCLEATED RBC # (test code = NRBC#) 0.05 K/mm3 0.0-0.1 N MANUAL DIFF REQUIRED (test code = MDIFF) YES STAIN ACCEPTABILITY (test code = STN ACCEPTABLE) STAIN ACCEPTABLE TOTAL CELLS COUNTED (test code = TCC) 100 #CELLS SEGMENTED NEUTROPHILS (test code = SEG) 91 % 39-69 H LYMPHOCYTE (test code = LYMPH) 5 % 25-55 L MONOCYTE (test code = MON) 3 % 0-10 N EOSINOPHIL (test code = EOS) 1 % 0.0-5.0 N POLYCHROMASIA (test code = POLC) 1+ HYPOCHROMIA (test code = HYPO) 1+ ANISOCYTOSIS (test code = ANISO) 1+ PLATELET ESTIMATE (test code = PLTEST) DECREASED PLATELET MORPHOLOGY (test code = PLTMORPH) NORMAL CBC W/MANUAL [id number] 22:13:00* Test Item Value Reference Range Interpretation Comments WHITE BLOOD CELL (test code = WBC) 26.6 K/mm3 4.5-12.5 H RED BLOOD CELL (test code = RBC) 2.68 mill/mm3 3.7-5.2 L HEMOGLOBIN (test code = HGB) 7.9 gram/dL 11.5-15.5 L HEMATOCRIT (test code = HCT) 27.9 % 36.0-46.0 L MEAN CELL VOLUME (test code = MCV) 104.1 fL 80-98 H RESULT VERIFIED BY REPEAT ANALYSIS MEAN CELL HGB (test code = MCH) 29.5 picogram 27.0-33.0 N MEAN CELL HGB CONCETRATION (test code = MCHC) 28.3 gram/dL 33.0-36. 0 L RED CELL DISTRIBUTION WIDTH (test code = RDW) 17.7 % 11.6-16. 2 H RED CELL DISTRIBUTION WIDTH SD (test code = RDW-SD) 66.3 fL 37 .0-51.0 H PLATELET COUNT (test code = PLT) 67 K/mm3 150-450 L RESULT VERIFIED BY REPEAT ANALYSIS MEAN PLATELET VOLUME (test code = MPV) TEST NOT PERFORMED fL 6.7-11 .0 Unable to determine due to platelet abnormality , please seethe platelet morphology. IMMATURE GRANULOCYTE % (test code = IG%) 6.6 % 0.0-5.0 H "The appearance of immature granulocytes (myelocytes,pro-myelocytes, meta-myelocytes) in the peripheral blood ofnon- individuals can indicate a response toinfection, inflammation, or other stimulus to the bonemarrow" NUCLEATED RBC % (test code = NRBC%) 0.2 % 0-0 H NEUTROPHIL # (test code = NT#) 21.56 K/mm3 1.8-7.7 H IMMATURE GRANULOCYTE # (test code = IG#) 1.76 x10 3/uL 0-0.03 H LYMPHOCYTE # (test code = LY#) 1.63 K/mm3 1.0-5.0 N MONOCYTE # (test code = MO#) 1.57 K/mm3 0-0.8 H EOSINOPHIL # (test code = EO#) 0.02 K/mm3 0.0-0.5 N BASOPHIL # (test code = BA#) 0.09 K/mm3 0.0-0.2 N NUCLEATED RBC # (test code = NRBC#) 0.05 K/mm3 0.0-0.1 N MANUAL DIFF REQUIRED (test code = MDIFF) YES STAIN ACCEPTABILITY (test code = STN ACCEPTABLE) TOTAL CELLS COUNTED (test code = TCC) #CELLS SEGMENTED NEUTROPHILS (test code = SEG) % 39-69 LYMPHOCYTE (test code = LYMPH) % 25-55 MONOCYTE (test code = MON) % 0-10 EOSINOPHIL (test code = EOS) % 0.0-5.0 CABOT RINGS (test code = CAB) MORPHOLOGY COMMENT (test code = MOC) PLATELET ESTIMATE (test code = PLTEST) PLATELET MORPHOLOGY (test code = PLTMORPH) CBC W/MANUAL [id number] 22:13:00* Test Item Value Reference Range Interpretation Comments WHITE BLOOD CELL (test code = WBC) 26.6 K/mm3 4.5-12.5 H RED BLOOD CELL (test code = RBC) 2.68 mill/mm3 3.7-5.2 L HEMOGLOBIN (test code = HGB) 7.9 gram/dL 11.5-15.5 L HEMATOCRIT (test code = HCT) 27.9 % 36.0-46.0 L MEAN CELL VOLUME (test code = MCV) 104.1 fL 80-98 H RESULT VERIFIED BY REPEAT ANALYSIS MEAN CELL HGB (test code = MCH) 29.5 picogram 27.0-33.0 N MEAN CELL HGB CONCETRATION (test code = MCHC) 28.3 gram/dL 33.0-36. 0 L RED CELL DISTRIBUTION WIDTH (test code = RDW) 17.7 % 11.6-16. 2 H RED CELL DISTRIBUTION WIDTH SD (test code = RDW-SD) 66.3 fL 37 .0-51.0 H PLATELET COUNT (test code = PLT) 67 K/mm3 150-450 L RESULT VERIFIED BY REPEAT ANALYSIS MEAN PLATELET VOLUME (test code = MPV) TEST NOT PERFORMED fL 6.7-11 .0 Unable to determine due to platelet abnormality , please seethe platelet morphology. IMMATURE GRANULOCYTE % (test code = IG%) 6.6 % 0.0-5.0 H "The appearance of immature granulocytes (myelocytes,pro-myelocytes, meta-myelocytes) in the peripheral blood ofnon- individuals can indicate a response toinfection, inflammation, or other stimulus to the bonemarrow" NUCLEATED RBC % (test code = NRBC%) 0.2 % 0-0 H NEUTROPHIL # (test code = NT#) 21.56 K/mm3 1.8-7.7 H IMMATURE GRANULOCYTE # (test code = IG#) 1.76 x10 3/uL 0-0.03 H LYMPHOCYTE # (test code = LY#) 1.63 K/mm3 1.0-5.0 N MONOCYTE # (test code = MO#) 1.57 K/mm3 0-0.8 H EOSINOPHIL # (test code = EO#) 0.02 K/mm3 0.0-0.5 N BASOPHIL # (test code = BA#) 0.09 K/mm3 0.0-0.2 N NUCLEATED RBC # (test code = NRBC#) 0.05 K/mm3 0.0-0.1 N MANUAL DIFF REQUIRED (test code = MDIFF) YES STAIN ACCEPTABILITY (test code = STN ACCEPTABLE) TOTAL CELLS COUNTED (test code = TCC) #CELLS SEGMENTED NEUTROPHILS (test code = SEG) % 39-69 LYMPHOCYTE (test code = LYMPH) % 25-55 MONOCYTE (test code = MON) % 0-10 EOSINOPHIL (test code = EOS) % 0.0-5.0 CABOT RINGS (test code = CAB) MORPHOLOGY COMMENT (test code = MOC) PLATELET ESTIMATE (test code = PLTEST) PLATELET MORPHOLOGY (test code = PLTMORPH) CBC W/MANUAL [id number] 22:13:00* Test Item Value Reference Range Interpretation Comments WHITE BLOOD CELL (test code = WBC) 26.6 K/mm3 4.5-12.5 H RED BLOOD CELL (test code = RBC) 2.68 mill/mm3 3.7-5.2 L HEMOGLOBIN (test code = HGB) 7.9 gram/dL 11.5-15.5 L HEMATOCRIT (test code = HCT) 27.9 % 36.0-46.0 L MEAN CELL VOLUME (test code = MCV) 104.1 fL 80-98 H RESULT VERIFIED BY REPEAT ANALYSIS MEAN CELL HGB (test code = MCH) 29.5 picogram 27.0-33.0 N MEAN CELL HGB CONCETRATION (test code = MCHC) 28.3 gram/dL 33.0-36. 0 L RED CELL DISTRIBUTION WIDTH (test code = RDW) 17.7 % 11.6-16. 2 H RED CELL DISTRIBUTION WIDTH SD (test code = RDW-SD) 66.3 fL 37 .0-51.0 H PLATELET COUNT (test code = PLT) 67 K/mm3 150-450 L RESULT VERIFIED BY REPEAT ANALYSIS MEAN PLATELET VOLUME (test code = MPV) TEST NOT PERFORMED fL 6.7-11 .0 Unable to determine due to platelet abnormality , please seethe platelet morphology. IMMATURE GRANULOCYTE % (test code = IG%) 6.6 % 0.0-5.0 H "The appearance of immature granulocytes (myelocytes,pro-myelocytes, meta-myelocytes) in the peripheral blood ofnon- individuals can indicate a response toinfection, inflammation, or other stimulus to the bonemarrow" NUCLEATED RBC % (test code = NRBC%) 0.2 % 0-0 H NEUTROPHIL # (test code = NT#) 21.56 K/mm3 1.8-7.7 H IMMATURE GRANULOCYTE # (test code = IG#) 1.76 x10 3/uL 0-0.03 H LYMPHOCYTE # (test code = LY#) 1.63 K/mm3 1.0-5.0 N MONOCYTE # (test code = MO#) 1.57 K/mm3 0-0.8 H EOSINOPHIL # (test code = EO#) 0.02 K/mm3 0.0-0.5 N BASOPHIL # (test code = BA#) 0.09 K/mm3 0.0-0.2 N NUCLEATED RBC # (test code = NRBC#) 0.05 K/mm3 0.0-0.1 N MANUAL DIFF REQUIRED (test code = MDIFF) YES STAIN ACCEPTABILITY (test code = STN ACCEPTABLE) TOTAL CELLS COUNTED (test code = TCC) #CELLS SEGMENTED NEUTROPHILS (test code = SEG) % 39-69 LYMPHOCYTE (test code = LYMPH) % 25-55 MONOCYTE (test code = MON) % 0-10 EOSINOPHIL (test code = EOS) % 0.0-5.0 MORPHOLOGY COMMENT (test code = MOC) PLATELET ESTIMATE (test code = PLTEST) PLATELET MORPHOLOGY (test code = PLTMORPH) CBC W/MANUAL [id number] 22:13:00* Test Item Value Reference Range Interpretation Comments WHITE BLOOD CELL (test code = WBC) 26.6 K/mm3 4.5-12.5 H RED BLOOD CELL (test code = RBC) 2.68 mill/mm3 3.7-5.2 L HEMOGLOBIN (test code = HGB) 7.9 gram/dL 11.5-15.5 L HEMATOCRIT (test code = HCT) 27.9 % 36.0-46.0 L MEAN CELL VOLUME (test code = MCV) 104.1 fL 80-98 H RESULT VERIFIED BY REPEAT ANALYSIS MEAN CELL HGB (test code = MCH) 29.5 picogram 27.0-33.0 N MEAN CELL HGB CONCETRATION (test code = MCHC) 28.3 gram/dL 33.0-36. 0 L RED CELL DISTRIBUTION WIDTH (test code = RDW) 17.7 % 11.6-16. 2 H RED CELL DISTRIBUTION WIDTH SD (test code = RDW-SD) 66.3 fL 37 .0-51.0 H PLATELET COUNT (test code = PLT) 67 K/mm3 150-450 L RESULT VERIFIED BY REPEAT ANALYSIS MEAN PLATELET VOLUME (test code = MPV) TEST NOT PERFORMED fL 6.7-11 .0 Unable to determine due to platelet abnormality , please seethe platelet morphology. IMMATURE GRANULOCYTE % (test code = IG%) 6.6 % 0.0-5.0 H "The appearance of immature granulocytes (myelocytes,pro-myelocytes, meta-myelocytes) in the peripheral blood ofnon- individuals can indicate a response toinfection, inflammation, or other stimulus to the bonemarrow" NUCLEATED RBC % (test code = NRBC%) 0.2 % 0-0 H NEUTROPHIL # (test code = NT#) 21.56 K/mm3 1.8-7.7 H IMMATURE GRANULOCYTE # (test code = IG#) 1.76 x10 3/uL 0-0.03 H LYMPHOCYTE # (test code = LY#) 1.63 K/mm3 1.0-5.0 N MONOCYTE # (test code = MO#) 1.57 K/mm3 0-0.8 H EOSINOPHIL # (test code = EO#) 0.02 K/mm3 0.0-0.5 N BASOPHIL # (test code = BA#) 0.09 K/mm3 0.0-0.2 N NUCLEATED RBC # (test code = NRBC#) 0.05 K/mm3 0.0-0.1 N MANUAL DIFF REQUIRED (test code = MDIFF) YES STAIN ACCEPTABILITY (test code = STN ACCEPTABLE) TOTAL CELLS COUNTED (test code = TCC) #CELLS SEGMENTED NEUTROPHILS (test code = SEG) % 39-69 LYMPHOCYTE (test code = LYMPH) % 25-55 MONOCYTE (test code = MON) % 0-10 MORPHOLOGY COMMENT (test code = MOC) PLATELET ESTIMATE (test code = PLTEST) PLATELET MORPHOLOGY (test code = PLTMORPH) CBC W/MANUAL [id number] 22:13:00* Test Item Value Reference Range Interpretation Comments WHITE BLOOD CELL (test code = WBC) 26.6 K/mm3 4.5-12.5 H RED BLOOD CELL (test code = RBC) 2.68 mill/mm3 3.7-5.2 L HEMOGLOBIN (test code = HGB) 7.9 gram/dL 11.5-15.5 L HEMATOCRIT (test code = HCT) 27.9 % 36.0-46.0 L MEAN CELL VOLUME (test code = MCV) 104.1 fL 80-98 H RESULT VERIFIED BY REPEAT ANALYSIS MEAN CELL HGB (test code = MCH) 29.5 picogram 27.0-33.0 N MEAN CELL HGB CONCETRATION (test code = MCHC) 28.3 gram/dL 33.0-36. 0 L RED CELL DISTRIBUTION WIDTH (test code = RDW) 17.7 % 11.6-16. 2 H RED CELL DISTRIBUTION WIDTH SD (test code = RDW-SD) 66.3 fL 37 .0-51.0 H PLATELET COUNT (test code = PLT) 67 K/mm3 150-450 L RESULT VERIFIED BY REPEAT ANALYSIS MEAN PLATELET VOLUME (test code = MPV) TEST NOT PERFORMED fL 6.7-11 .0 Unable to determine due to platelet abnormality , please seethe platelet morphology. IMMATURE GRANULOCYTE % (test code = IG%) 6.6 % 0.0-5.0 H "The appearance of immature granulocytes (myelocytes,pro-myelocytes, meta-myelocytes) in the peripheral blood ofnon- individuals can indicate a response toinfection, inflammation, or other stimulus to the bon[place]" NUCLEATED RBC % (test code = NRBC%) 0.2 % 0-0 H NEUTROPHIL # (test code = NT#) 21.56 K/mm3 1.8-7.7 H IMMATURE GRANULOCYTE # (test code = IG#) 1.76 x10 3/uL 0-0.03 H LYMPHOCYTE # (test code = LY#) 1.63 K/mm3 1.0-5.0 N MONOCYTE # (test code = MO#) 1.57 K/mm3 0-0.8 H EOSINOPHIL # (test code = EO#) 0.02 K/mm3 0.0-0.5 N BASOPHIL # (test code = BA#) 0.09 K/mm3 0.0-0.2 N NUCLEATED RBC # (test code = NRBC#) 0.05 K/mm3 0.0-0.1 N MANUAL DIFF REQUIRED (test code = MDIFF) YES STAIN ACCEPTABILITY (test code = STN ACCEPTABLE) TOTAL CELLS COUNTED (test code = TCC) #CELLS SEGMENTED NEUTROPHILS (test code = SEG) % 39-69 LYMPHOCYTE (test code = LYMPH) % 25-55 MONOCYTE (test code = MON) % 0-10 EOSINOPHIL (test code = EOS) % 0.0-5.0 CABOT RINGS (test code = CAB) MORPHOLOGY COMMENT (test code = MOC) PLATELET ESTIMATE (test code = PLTEST) PLATELET MORPHOLOGY (test code = PLTMORPH) [id number] 21:47:00* Test Item Value Reference Range Interpretation Comments GLUBED (test code = GLUBED) 59 mg/dL 74-106 L Performed by certified pulping machine operator at [facility] [id number] 21:11:00* Test Item Value Reference Range Interpretation Comments GLUBED (test code = GLUBED) 83 mg/dL 74-106 N Performed by certified pulping machine operator at [facility] [id number] 12:49:00* Test Item Value Reference Range Interpretation Comments GLUBED (test code = GLUBED) 84 mg/dL 74-106 N Performed by certified pulping machine operator at [facility] [id number] 09:33:00* Test Item Value Reference Range Interpretation Comments GLUBED (test code = GLUBED) 71 mg/dL 74-106 L Performed by certified pulping machine operator at [facility] CBC W/AUTO [id number] 06:40:00* Test Item Value Reference Range Interpretation Comments WHITE BLOOD CELL (test code = WBC) 12.6 K/mm3 4.5-12.5 H RED BLOOD CELL (test code = RBC) 3.19 mill/mm3 3.7-5.2 L HEMOGLOBIN (test code = HGB) 9.5 gram/dL 11.5-15.5 L HEMATOCRIT (test code = HCT) 28.6 % 36.0-46.0 L MEAN CELL VOLUME (test code = MCV) 89.7 fL 80-98 N MEAN CELL HGB (test code = MCH) 29.8 picogram 27.0-33.0 N MEAN CELL HGB CONCETRATION (test code = MCHC) 33.2 gram/dL 33.0-36. 0 N RED CELL DISTRIBUTION WIDTH (test code = RDW) 16.7 % 11.6-16. 2 H RED CELL DISTRIBUTION WIDTH SD (test code = RDW-SD) 53.3 fL 37 .0-51.0 H PLATELET COUNT (test code = PLT) 48 K/mm3 150-450 LL Results called to [id number] by KATY 12/13/18 0546Critical results verified and read back by Nurse? Y MEAN PLATELET VOLUME (test code = MPV) 14.8 fL 6.7-11.0 H NEUTROPHIL % (test code = NT%) 80.1 % 39.0-69.0 H IMMATURE GRANULOCYTE % (test code = IG%) 2.1 % 0.0-5.0 N LYMPHOCYTE % (test code = LY%) 8.0 % 25.0-55.0 L MONOCYTE % (test code = MO%) 7.8 % 0.0-10.0 N EOSINOPHIL % (test code = EO%) 1.7 % 0.0-5.0 N BASOPHIL % (test code = BA%) 0.3 % 0.0-1.0 N NUCLEATED RBC % (test code = NRBC%) 0.0 % 0-0 N NEUTROPHIL # (test code = NT#) 10.10 K/mm3 1.8-7.7 H IMMATURE GRANULOCYTE # (test code = IG#) 0.26 x10 3/uL 0-0.03 H LYMPHOCYTE # (test code = LY#) 1.01 K/mm3 1.0-5.0 N MONOCYTE # (test code = MO#) 0.99 K/mm3 0-0.8 H EOSINOPHIL # (test code = EO#) 0.22 K/mm3 0.0-0.5 N BASOPHIL # (test code = BA#) 0.04 K/mm3 0.0-0.2 N NUCLEATED RBC # (test code = NRBC#) 0.00 K/mm3 0.0-0.1 N MANUAL DIFF REQUIRED (test code = MDIFF) NO, ONLY SCAN NEEDED DIFFERENTIAL [id number] 06:40:00* Test Item Value Reference Range Interpretation Comments STAIN ACCEPTABILITY (test code = STN ACCEPTABLE) STAIN ACCEPTABLE POIKILOCYTOSIS (test code = POIK) 2+ ANISOCYTOSIS (test code = ANISO) 1+ MACROCYTOSIS (test code = MACR) 1+ PLATELET ESTIMATE (test code = PLTEST) DECREASED PLATELET MORPHOLOGY (test code = PLTMORPH) NORMAL BASIC METABOLIC [id number] 06:21:00* Test Item Value Reference Range Interpretation Comments SODIUM (test code = NA) 142 mmol/L 136-145 N POTASSIUM (test code = K) 3.6 mmol/L 3.5-5.1 N CHLORIDE (test code = CL) 110.0 mmol/L 98-107 H CARBON DIOXIDE (test code = CO2) 21.0 mmol/L 21-32 N ANION GAP (test code = GAP) 14.6 10-20 N GLUCOSE (test code = GLU) 69 mg/dL 74-106 L BLOOD UREA NITROGEN (test code = BUN) 25 mg/dL 7-18 H GLOMERULAR FILTRATION RATE (test code = GFR) 25 mL/min >=60 Estimated GFR by using Modified MDRD formula.Chronic kidney disease is defined as either kidney damageor GFR <60 mL/min/1.73 m2 for >3 months. CREATININE (test code = CREAT) 2.00 mg/dL 0.55-1.02 H Note change in reference range due to change in reagent. BUN/CREATININE RATIO (test code = BUN/CREA) 12.5 10-20 N CALCIUM (test code = CA) 7.3 mg/dL 8.5-10.1 L [id number] 06:21:00* Test Item Value Reference Range Interpretation Comments PHOSPHORUS (test code = PHOS) 2.9 mg/dL 2.5-4.9 N [id number] 06:21:00* Test Item Value Reference Range Interpretation Comments MAGNESIUM (test code = MAG) 1.6 mg/dL 1.8-2.4 L BASIC METABOLIC [id number] 06:11:00* Test Item Value Reference Range Interpretation Comments SODIUM (test code = NA) 142 mmol/L 136-145 N POTASSIUM (test code = K) 3.6 mmol/L 3.5-5.1 N CHLORIDE (test code = CL) 110.0 mmol/L 98-107 H CARBON DIOXIDE (test code = CO2) mmol/L 21-32 ANION GAP (test code = GAP) 10-20 GLUCOSE (test code = GLU) mg/dL 74-106 BLOOD UREA NITROGEN (test code = BUN) mg/dL 7-18 GLOMERULAR FILTRATION RATE (test code = GFR) mL/min >=60 CREATININE (test code = CREAT) mg/dL 0.55-1.02 BUN/CREATININE RATIO (test code = BUN/CREA) 10-20 CALCIUM (test code = CA) mg/dL 8.5-10.1 [id number] 06:11:00* Test Item Value Reference Range Interpretation Comments PHOSPHORUS (test code = PHOS) mg/dL 2.5-4.9 [id number] 06:11:00* Test Item Value Reference Range Interpretation Comments MAGNESIUM (test code = MAG) mg/dL 1.8-2.4 CBC W/AUTO [id number] 05:49:00* Test Item Value Reference Range Interpretation Comments WHITE BLOOD CELL (test code = WBC) 12.6 K/mm3 4.5-12.5 H RED BLOOD CELL (test code = RBC) 3.19 mill/mm3 3.7-5.2 L HEMOGLOBIN (test code = HGB) 9.5 gram/dL 11.5-15.5 L HEMATOCRIT (test code = HCT) 28.6 % 36.0-46.0 L MEAN CELL VOLUME (test code = MCV) 89.7 fL 80-98 N MEAN CELL HGB (test code = MCH) 29.8 picogram 27.0-33.0 N MEAN CELL HGB CONCETRATION (test code = MCHC) 33.2 gram/dL 33.0-36. 0 N RED CELL DISTRIBUTION WIDTH (test code = RDW) 16.7 % 11.6-16. 2 H RED CELL DISTRIBUTION WIDTH SD (test code = RDW-SD) 53.3 fL 37 .0-51.0 H PLATELET COUNT (test code = PLT) 48 K/mm3 150-450 LL Results called to [id number] by KATY 12/13/18 0546Critical results verified and read back by Nurse? Y MEAN PLATELET VOLUME (test code = MPV) 14.8 fL 6.7-11.0 H NEUTROPHIL % (test code = NT%) 80.1 % 39.0-69.0 H IMMATURE GRANULOCYTE % (test code = IG%) 2.1 % 0.0-5.0 N LYMPHOCYTE % (test code = LY%) 8.0 % 25.0-55.0 L MONOCYTE % (test code = MO%) 7.8 % 0.0-10.0 N EOSINOPHIL % (test code = EO%) 1.7 % 0.0-5.0 N BASOPHIL % (test code = BA%) 0.3 % 0.0-1.0 N NUCLEATED RBC % (test code = NRBC%) 0.0 % 0-0 N NEUTROPHIL # (test code = NT#) 10.10 K/mm3 1.8-7.7 H IMMATURE GRANULOCYTE # (test code = IG#) 0.26 x10 3/uL 0-0.03 H LYMPHOCYTE # (test code = LY#) 1.01 K/mm3 1.0-5.0 N MONOCYTE # (test code = MO#) 0.99 K/mm3 0-0.8 H EOSINOPHIL # (test code = EO#) 0.22 K/mm3 0.0-0.5 N BASOPHIL # (test code = BA#) 0.04 K/mm3 0.0-0.2 N NUCLEATED RBC # (test code = NRBC#) 0.00 K/mm3 0.0-0.1 N MANUAL DIFF REQUIRED (test code = MDIFF) NO, ONLY SCAN NEEDED DIFFERENTIAL [id number] 05:49:00* Test Item Value Reference Range Interpretation Comments STAIN ACCEPTABILITY (test code = STN ACCEPTABLE) MORPHOLOGY COMMENT (test code = MOC) PLATELET ESTIMATE (test code = PLTEST) PLATELET MORPHOLOGY (test code = PLTMORPH) CBC W/AUTO [id number] 05:48:00* Test Item Value Reference Range Interpretation Comments WHITE BLOOD CELL (test code = WBC) 12.6 K/mm3 4.5-12.5 H RED BLOOD CELL (test code = RBC) 3.19 mill/mm3 3.7-5.2 L HEMOGLOBIN (test code = HGB) 9.5 gram/dL 11.5-15.5 L HEMATOCRIT (test code = HCT) 28.6 % 36.0-46.0 L MEAN CELL VOLUME (test code = MCV) 89.7 fL 80-98 N MEAN CELL HGB (test code = MCH) 29.8 picogram 27.0-33.0 N MEAN CELL HGB CONCETRATION (test code = MCHC) 33.2 gram/dL 33.0-36. 0 N RED CELL DISTRIBUTION WIDTH (test code = RDW) 16.7 % 11.6-16. 2 H RED CELL DISTRIBUTION WIDTH SD (test code = RDW-SD) 53.3 fL 37 .0-51.0 H PLATELET COUNT (test code = PLT) 48 K/mm3 150-450 LL Results called to [id number] by KATY 12/13/18 0546Critical results verified and read back by Nurse? Y MEAN PLATELET VOLUME (test code = MPV) 14.8 fL 6.7-11.0 H NEUTROPHIL % (test code = NT%) 80.1 % 39.0-69.0 H IMMATURE GRANULOCYTE % (test code = IG%) 2.1 % 0.0-5.0 N LYMPHOCYTE % (test code = LY%) 8.0 % 25.0-55.0 L MONOCYTE % (test code = MO%) 7.8 % 0.0-10.0 N EOSINOPHIL % (test code = EO%) 1.7 % 0.0-5.0 N BASOPHIL % (test code = BA%) 0.3 % 0.0-1.0 N NUCLEATED RBC % (test code = NRBC%) 0.0 % 0-0 N NEUTROPHIL # (test code = NT#) 10.10 K/mm3 1.8-7.7 H IMMATURE GRANULOCYTE # (test code = IG#) 0.26 x10 3/uL 0-0.03 H LYMPHOCYTE # (test code = LY#) 1.01 K/mm3 1.0-5.0 N MONOCYTE # (test code = MO#) 0.99 K/mm3 0-0.8 H EOSINOPHIL # (test code = EO#) 0.22 K/mm3 0.0-0.5 N BASOPHIL # (test code = BA#) 0.04 K/mm3 0.0-0.2 N NUCLEATED RBC # (test code = NRBC#) 0.00 K/mm3 0.0-0.1 N MANUAL DIFF REQUIRED (test code = MDIFF) NO, ONLY SCAN NEEDED DIFFERENTIAL [id number] 05:48:00* Test Item Value Reference Range Interpretation Comments STAIN ACCEPTABILITY (test code = STN ACCEPTABLE) CABOT RINGS (test code = CAB) MORPHOLOGY COMMENT (test code = MOC) PLATELET ESTIMATE (test code = PLTEST) PLATELET MORPHOLOGY (test code = PLTMORPH) CBC W/AUTO [id number] 05:48:00* Test Item Value Reference Range Interpretation Comments WHITE BLOOD CELL (test code = WBC) 12.6 K/mm3 4.5-12.5 H RED BLOOD CELL (test code = RBC) 3.19 mill/mm3 3.7-5.2 L HEMOGLOBIN (test code = HGB) 9.5 gram/dL 11.5-15.5 L HEMATOCRIT (test code = HCT) 28.6 % 36.0-46.0 L MEAN CELL VOLUME (test code = MCV) 89.7 fL 80-98 N MEAN CELL HGB (test code = MCH) 29.8 picogram 27.0-33.0 N MEAN CELL HGB CONCETRATION (test code = MCHC) 33.2 gram/dL 33.0-36. 0 N RED CELL DISTRIBUTION WIDTH (test code = RDW) 16.7 % 11.6-16. 2 H RED CELL DISTRIBUTION WIDTH SD (test code = RDW-SD) 53.3 fL 37 .0-51.0 H PLATELET COUNT (test code = PLT) 48 K/mm3 150-450 LL Results called to [id number] by KATY 12/13/18 0546Critical results verified and read back by Nurse? Y MEAN PLATELET VOLUME (test code = MPV) 14.8 fL 6.7-11.0 H NEUTROPHIL % (test code = NT%) 80.1 % 39.0-69.0 H IMMATURE GRANULOCYTE % (test code = IG%) 2.1 % 0.0-5.0 N LYMPHOCYTE % (test code = LY%) 8.0 % 25.0-55.0 L MONOCYTE % (test code = MO%) 7.8 % 0.0-10.0 N EOSINOPHIL % (test code = EO%) 1.7 % 0.0-5.0 N BASOPHIL % (test code = BA%) 0.3 % 0.0-1.0 N NUCLEATED RBC % (test code = NRBC%) 0.0 % 0-0 N NEUTROPHIL # (test code = NT#) 10.10 K/mm3 1.8-7.7 H IMMATURE GRANULOCYTE # (test code = IG#) 0.26 x10 3/uL 0-0.03 H LYMPHOCYTE # (test code = LY#) 1.01 K/mm3 1.0-5.0 N MONOCYTE # (test code = MO#) 0.99 K/mm3 0-0.8 H EOSINOPHIL # (test code = EO#) 0.22 K/mm3 0.0-0.5 N BASOPHIL # (test code = BA#) 0.04 K/mm3 0.0-0.2 N NUCLEATED RBC # (test code = NRBC#) 0.00 K/mm3 0.0-0.1 N MANUAL DIFF REQUIRED (test code = MDIFF) NO, ONLY SCAN NEEDED DIFFERENTIAL [id number] 05:48:00* Test Item Value Reference Range Interpretation Comments STAIN ACCEPTABILITY (test code = STN ACCEPTABLE) MORPHOLOGY COMMENT (test code = MOC) PLATELET ESTIMATE (test code = PLTEST) PLATELET MORPHOLOGY (test code = PLTMORPH) CBC W/AUTO [id number] 05:48:00* Test Item Value Reference Range Interpretation Comments WHITE BLOOD CELL (test code = WBC) 12.6 K/mm3 4.5-12.5 H RED BLOOD CELL (test code = RBC) 3.19 mill/mm3 3.7-5.2 L HEMOGLOBIN (test code = HGB) 9.5 gram/dL 11.5-15.5 L HEMATOCRIT (test code = HCT) 28.6 % 36.0-46.0 L MEAN CELL VOLUME (test code = MCV) 89.7 fL 80-98 N MEAN CELL HGB (test code = MCH) 29.8 picogram 27.0-33.0 N MEAN CELL HGB CONCETRATION (test code = MCHC) 33.2 gram/dL 33.0-36. 0 N RED CELL DISTRIBUTION WIDTH (test code = RDW) 16.7 % 11.6-16. 2 H RED CELL DISTRIBUTION WIDTH SD (test code = RDW-SD) 53.3 fL 37 .0-51.0 H PLATELET COUNT (test code = PLT) 48 K/mm3 150-450 LL Results called to [id number] by KATY 12/13/18 0546Critical results verified and read back by Nurse? Y MEAN PLATELET VOLUME (test code = MPV) 14.8 fL 6.7-11.0 H NEUTROPHIL % (test code = NT%) 80.1 % 39.0-69.0 H IMMATURE GRANULOCYTE % (test code = IG%) 2.1 % 0.0-5.0 N LYMPHOCYTE % (test code = LY%) 8.0 % 25.0-55.0 L MONOCYTE % (test code = MO%) 7.8 % 0.0-10.0 N EOSINOPHIL % (test code = EO%) 1.7 % 0.0-5.0 N BASOPHIL % (test code = BA%) 0.3 % 0.0-1.0 N NUCLEATED RBC % (test code = NRBC%) 0.0 % 0-0 N NEUTROPHIL # (test code = NT#) 10.10 K/mm3 1.8-7.7 H IMMATURE GRANULOCYTE # (test code = IG#) 0.26 x10 3/uL 0-0.03 H LYMPHOCYTE # (test code = LY#) 1.01 K/mm3 1.0-5.0 N MONOCYTE # (test code = MO#) 0.99 K/mm3 0-0.8 H EOSINOPHIL # (test code = EO#) 0.22 K/mm3 0.0-0.5 N BASOPHIL # (test code = BA#) 0.04 K/mm3 0.0-0.2 N NUCLEATED RBC # (test code = NRBC#) 0.00 K/mm3 0.0-0.1 N MANUAL DIFF REQUIRED (test code = MDIFF) NO, ONLY SCAN NEEDED DIFFERENTIAL [id number] 05:48:00* Test Item Value Reference Range Interpretation Comments STAIN ACCEPTABILITY (test code = STN ACCEPTABLE) CABOT RINGS (test code = CAB) MORPHOLOGY COMMENT (test code = MOC) PLATELET ESTIMATE (test code = PLTEST) PLATELET MORPHOLOGY (test code = PLTMORPH) [id number] 20:53:00* Test Item Value Reference Range Interpretation Comments GLUBED (test code = GLUBED) 78 mg/dL 74-106 N Performed by certified pulping machine operator at [facility] [id number] 17:51:00* Test Item Value Reference Range Interpretation Comments GLUBED (test code = GLUBED) 79 mg/dL 74-106 N Performed by certified pulping machine operator at [facility] B-TYPE NATRIURETIC [id number] 07:39:00* Test Item Value Reference Range Interpretation Comments B-TYPE NATRIURETIC PEPTIDE (test code = BNP) 370.99 pgram/mL 0-100 H BASIC METABOLIC [id number] 07:20:00* Test Item Value Reference Range Interpretation Comments SODIUM (test code = NA) 141 mmol/L 136-145 N POTASSIUM (test code = K) 3.6 mmol/L 3.5-5.1 N CHLORIDE (test code = CL) 109.0 mmol/L 98-107 H CARBON DIOXIDE (test code = CO2) 23.0 mmol/L 21-32 N ANION GAP (test code = GAP) 12.6 10-20 N GLUCOSE (test code = GLU) 84 mg/dL 74-106 N BLOOD UREA NITROGEN (test code = BUN) 22 mg/dL 7-18 H GLOMERULAR FILTRATION RATE (test code = GFR) 32 mL/min >=60 Estimated GFR by using Modified MDRD formula.Chronic kidney disease is defined as either kidney damageor GFR <60 mL/min/1.73 m2 for >3 months. CREATININE (test code = CREAT) 1.60 mg/dL 0.55-1.02 H Note change in reference range due to change in reagent. BUN/CREATININE RATIO (test code = BUN/CREA) 13.8 10-20 N CALCIUM (test code = CA) 7.5 mg/dL 8.5-10.1 L [id number] 07:20:00* Test Item Value Reference Range Interpretation Comments PHOSPHORUS (test code = PHOS) 2.6 mg/dL 2.5-4.9 N [id number] 07:20:00* Test Item Value Reference Range Interpretation Comments MAGNESIUM (test code = MAG) 1.9 mg/dL 1.8-2.4 N CALCIUM [id number] 07:20:00* Test Item Value Reference Range Interpretation Comments CALCIUM IONIZED (test code = ERICH) 1.18 mmol/L 1.12-1.32 N BASIC METABOLIC [id number] 07:11:00* Test Item Value Reference Range Interpretation Comments SODIUM (test code = NA) 141 mmol/L 136-145 N POTASSIUM (test code = K) 3.6 mmol/L 3.5-5.1 N CHLORIDE (test code = CL) 109.0 mmol/L 98-107 H CARBON DIOXIDE (test code = CO2) mmol/L 21-32 ANION GAP (test code = GAP) 10-20 GLUCOSE (test code = GLU) mg/dL 74-106 BLOOD UREA NITROGEN (test code = BUN) mg/dL 7-18 GLOMERULAR FILTRATION RATE (test code = GFR) mL/min >=60 CREATININE (test code = CREAT) mg/dL 0.55-1.02 BUN/CREATININE RATIO (test code = BUN/CREA) 10-20 CALCIUM (test code = CA) mg/dL 8.5-10.1 [id number] 07:11:00* Test Item Value Reference Range Interpretation Comments PHOSPHORUS (test code = PHOS) mg/dL 2.5-4.9 [id number] 07:11:00* Test Item Value Reference Range Interpretation Comments MAGNESIUM (test code = MAG) mg/dL 1.8-2.4 CALCIUM [id number] 07:11:00* Test Item Value Reference Range Interpretation Comments CALCIUM IONIZED (test code = ERICH) 1.18 mmol/L 1.12-1.32 N BASIC METABOLIC [id number] 07:05:00* Test Item Value Reference Range Interpretation Comments SODIUM (test code = NA) mmol/L 136-145 POTASSIUM (test code = K) mmol/L 3.5-5.1 CHLORIDE (test code = CL) mmol/L 98-107 CARBON DIOXIDE (test code = CO2) mmol/L 21-32 ANION GAP (test code = GAP) 10-20 GLUCOSE (test code = GLU) mg/dL 74-106 BLOOD UREA NITROGEN (test code = BUN) mg/dL 7-18 GLOMERULAR FILTRATION RATE (test code = GFR) mL/min >=60 CREATININE (test code = CREAT) mg/dL 0.55-1.02 BUN/CREATININE RATIO (test code = BUN/CREA) 10-20 CALCIUM (test code = CA) mg/dL 8.5-10.1 [id number] 07:05:00* Test Item Value Reference Range Interpretation Comments PHOSPHORUS (test code = PHOS) mg/dL 2.5-4.9 [id number] 07:05:00* Test Item Value Reference Range Interpretation Comments MAGNESIUM (test code = MAG) mg/dL 1.8-2.4 CALCIUM [id number] 07:05:00* Test Item Value Reference Range Interpretation Comments CALCIUM IONIZED (test code = ERICH) 1.18 mmol/L 1.12-1.32 N - XR CHEST 1 [id number] 06:49:00 FAX: Ilan Holt MD [place]: B St: DIS FAX: Ashley Juarez NP [phone] Name: MOJGAN CUMMINGS [facility] : 1950 Age/S: 68/F Amish Koehlerzach [place] Unit #: [id number] Loc: [place] [address] Phys: Ashley Hendrix NP Acct: [id number] Dis Date: Status: DIS IN PHONE #: [phone] Exam Date: 12/12/2018 0549 FAX #: [phone] Reason: respiratory failure EXAMS: CPT CODE: [id number] XR CHEST 1 V 96216 REASON FOR EXAM: respiratory failure EXAM ORDER DATE: 12/12/2018 5:00 AM Ordering Cris[place]: Ashley Hendrix NP PROCEDURE: - XR CHEST 1 V COMPARISON: 12/11/2018 FINDINGS: Portable AP frontal view of the chest obtained at 5:20 AM shows clear lungs without evidence of consolidation. There is no evidence of effusion. The heart size is minimally enlarged. Stable appearance of the right subclavian central line and tracheostomy tube. Pulmonary vas culatures are minimally congested. IMPRESSION: Minimal cardiome osiel and pulmonary venous congestion at 0693 Reported and signed by: Abraham Toro M.D. CC: Ilan Stein; Ashley Hendrix NP Technologist: Abigail Darling Trnwyrd Date/Time/By: 12/12/2018 (0649) : By: HarryVTL Orig Print D/T : S: 12/12/2018 (0652) PAGE 1 Sig julian Report - XR CHEST 1 [id number] 06:49:00 FAX: Ilan Holt MD [place]: B St: ADM FAX: Ashley Juarez NP [phone] Name: ZOILAMOJGAN MOLINA [facility] : 1950 Age/S: 68/F [address] Unit #: [id number] Loc: [id number] [place] [address] Phys: Ashley Hendrix NP Acct: [id number] Dis Date: Status: ADM IN PHONE #: [phone] Exam Date: 12/12/2018 0549 FAX #: [phone] Reason: respiratory failure EXAMS: CPT CODE: [id number] XR CHEST 1 V 40566 REASON FOR EXAM: respiratory failure EXAM ORDER DATE: 12/12/2018 5:00 AM Ordering [place]: Ashley Hendrix NP PROCEDURE: - XR CHEST 1 V COMPARISON: 12/11/2018 FINDINGS: Portable AP frontal view of the chest obtained at 5:20 AM shows clear lungs without evidence of consolidation. There is no evid ence of effusion. The heart size is minimally enlarged. Stable appearance of the right subclavian central line and tracheostomy tube. Pulmonary vas culatures are minimally congested. IMPRESSION: Minimal cardiome osiel and pulmonary venous congestion at 0613 Reported and signed by: Abraham Toro M.D. CC: Ilan Stein; Ashley Hendrix NP Technologist: Abigail Darling Trnwyrd Date/Time/By: 12/12/2018 (0649) : By: GordoL Orig Print D/T : S: 12/12/2018 (0652) PAGE 1 Sig julian Report - XR CHEST 1 [id number] 06:49:00 FAX: Ilan Holt MD [place]: B St: DIS FAX: Ashley Juarez NP [phone] Name: MOJGAN CUMMINGS [facility] : 1950 Age/S: 68/F [address] [facility] Unit #: [id number] Loc: [place] [address] Phys: Ashley Hendrix NP Acct: [id number] Dis Date: Status: DIS IN PHONE #: [phone] Exam Date: 12/12/201849 FAX #: [phone] Reason: respiratory failure EXAMS: CPT CODE: [id number] XR CHEST 1 V 31977 REASON FOR EXAM: respiratory failure EXAM ORDER DATE: 12/12/2018 5:00 AM Ordering [place]: Ashley Hendrix NP PROCEDURE: - XR CHEST 1 V COMPARISON: 12/11/2018 FINDINGS: Portable AP frontal view of the chest obtained at 5:20 AM shows clear lungs without evidence of consolidation. There is no evid ence of effusion. The heart size is minimally enlarged. Stable appearance of the right subclavian central line and tracheostomy tube. Pulmonary vas culatures are minimally congested. IMPRESSION: Minimal cardiome osiel and pulmonary venous congestion at 0649 Reported and signed by: Abraham Toro M.D. CC: Ilan Stein; Ashley Hendrix NP Technologist: Abigail Darling Trnscrd Date/Time/By: 12/12/2018 (0649) : By: HarryVTL Orig Print D/T : S: 12/12/2018 (0609) PAGE 1 Sig julian Report CBC W/AUTO [id number] 06:40:00* Test Item Value Reference Range Interpretation Comments WHITE BLOOD CELL (test code = WBC) 14.8 K/mm3 4.5-12.5 H RED BLOOD CELL (test code = RBC) 3.53 mill/mm3 3.7-5.2 L HEMOGLOBIN (test code = HGB) 10.1 gram/dL 11.5-15.5 L HEMATOCRIT (test code = HCT) 31.1 % 36.0-46.0 L MEAN CELL VOLUME (test code = MCV) 88.1 fL 80-98 N MEAN CELL HGB (test code = MCH) 28.6 picogram 27.0-33.0 N MEAN CELL HGB CONCETRATION (test code = MCHC) 32.5 gram/dL 33.0-36. 0 L RED CELL DISTRIBUTION WIDTH (test code = RDW) 16.5 % 11.6-16. 2 H RED CELL DISTRIBUTION WIDTH SD (test code = RDW-SD) 52.0 fL 37 .0-51.0 H PLATELET COUNT (test code = PLT) 51 K/mm3 150-450 L MEAN PLATELET VOLUME (test code = MPV) 13.7 fL 6.7-11.0 H NEUTROPHIL % (test code = NT%) 86.7 % 39.0-69.0 H IMMATURE GRANULOCYTE % (test code = IG%) 1.5 % 0.0-5.0 N LYMPHOCYTE % (test code = LY%) 6.4 % 25.0-55.0 L MONOCYTE % (test code = MO%) 3.9 % 0.0-10.0 N EOSINOPHIL % (test code = EO%) 1.4 % 0.0-5.0 N BASOPHIL % (test code = BA%) 0.1 % 0.0-1.0 N NUCLEATED RBC % (test code = NRBC%) 0.0 % 0-0 N NEUTROPHIL # (test code = NT#) 12.78 K/mm3 1.8-7.7 H IMMATURE GRANULOCYTE # (test code = IG#) 0.22 x10 3/uL 0-0.03 H LYMPHOCYTE # (test code = LY#) 0.95 K/mm3 1.0-5.0 L MONOCYTE # (test code = MO#) 0.58 K/mm3 0-0.8 N EOSINOPHIL # (test code = EO#) 0.20 K/mm3 0.0-0.5 N BASOPHIL # (test code = BA#) 0.02 K/mm3 0.0-0.2 N NUCLEATED RBC # (test code = NRBC#) 0.00 K/mm3 0.0-0.1 N MANUAL DIFF REQUIRED (test code = MDIFF) NO ARTERIAL BLOOD [id number] 05:57:00* Test Item Value Reference Range Interpretation Comments ARTERIAL BLOOD GAS PH (test code = PHA) 7.45 7.35-7.45 N ARTERIAL BLOOD GAS PCO2 (test code = PCO2A) 26.5 mm Hg 35-45 L ARTERIAL BLOOD GAS PO2 (test code = PO2A) 113.7 mmHg 80-100 H BICARBONATE TOTAL HCO3 (test code = HCO3) 17.8 mmol/L 23.0-27.0 L BASE EXCESS (test code = SHASHA) -5.0 mmol/L -3.0-5.0 LL Results called to and read back by Norma 05:55 - 12/12/2018; by Ac Hernandez, NAIL ASSEMBLY MACHINE OPERATOR ABG O2 SATURATION (test code = SATA) 97.7 % 90.0-98.0 N ABG TYPE (test code = TYPEA) Arterial FIO2 (test code = FIO2A) 28.0 ABG SITE (test code = SITEA) ARTERIAL LINE MODIFIED ALLENS (test code = MODALL) Unable CHECK PERFORMED HEMATOCRIT (test code = HCT/ABG) 33 % 35-47 L TOTAL HGB (test code = THB) 11.1 gram/dL 11.5-15.5 L HGB O2 SAT (test code = HBOSAT) 97.0 % 94.00-98.00 N CARBOXYHEMOGLOBIN (test code = HOHGBT) 0.3 %totalHg 0.5-1.5 LL Results called to and read back by Norma 05:55 - 12/12/2018; by Ac Hernandez, NAIL ASSEMBLY MACHINE OPERATOR METHEMOGLOBIN (test code = METHGB) 0.4 % 0.0-1.50 N O2 CONTENT (test code = O2CT) 15.3 % vol 18.0-22.0 L CALCIUM [id number] 16:28:00* Test Item Value Reference Range Interpretation Comments CALCIUM IONIZED (test code = ERICH) 1.14 mmol/L 1.12-1.32 N CBC W/AUTO [id number] 16:01:00* Test Item Value Reference Range Interpretation Comments WHITE BLOOD CELL (test code = WBC) 12.4 K/mm3 4.5-12.5 N RED BLOOD CELL (test code = RBC) 3.01 mill/mm3 3.7-5.2 L HEMOGLOBIN (test code = HGB) 8.7 gram/dL 11.5-15.5 L HEMATOCRIT (test code = HCT) 26.4 % 36.0-46.0 L MEAN CELL VOLUME (test code = MCV) 87.7 fL 80-98 N MEAN CELL HGB (test code = MCH) 28.9 picogram 27.0-33.0 N MEAN CELL HGB CONCETRATION (test code = MCHC) 33.0 gram/dL 33.0-36. 0 N RED CELL DISTRIBUTION WIDTH (test code = RDW) 16.2 % 11.6-16. 2 N RED CELL DISTRIBUTION WIDTH SD (test code = RDW-SD) 50.1 fL 37 .0-51.0 N PLATELET COUNT (test code = PLT) 47 K/mm3 150-450 LL Results called to [id number] by [facility] 12/11/18 1444Critical results verified and read back by Nurse? Y MEAN PLATELET VOLUME (test code = MPV) 13.1 fL 6.7-11.0 H NEUTROPHIL % (test code = NT%) 87.4 % 39.0-69.0 H IMMATURE GRANULOCYTE % (test code = IG%) 1.4 % 0.0-5.0 N LYMPHOCYTE % (test code = LY%) 6.5 % 25.0-55.0 L MONOCYTE % (test code = MO%) 3.5 % 0.0-10.0 N EOSINOPHIL % (test code = EO%) 1.0 % 0.0-5.0 N BASOPHIL % (test code = BA%) 0.2 % 0.0-1.0 N NUCLEATED RBC % (test code = NRBC%) 0.0 % 0-0 N NEUTROPHIL # (test code = NT#) 10.86 K/mm3 1.8-7.7 H IMMATURE GRANULOCYTE # (test code = IG#) 0.17 x10 3/uL 0-0.03 H LYMPHOCYTE # (test code = LY#) 0.81 K/mm3 1.0-5.0 L MONOCYTE # (test code = MO#) 0.43 K/mm3 0-0.8 N EOSINOPHIL # (test code = EO#) 0.13 K/mm3 0.0-0.5 N BASOPHIL # (test code = BA#) 0.02 K/mm3 0.0-0.2 N NUCLEATED RBC # (test code = NRBC#) 0.00 K/mm3 0.0-0.1 N MANUAL DIFF REQUIRED (test code = MDIFF) NO, ONLY SCAN NEEDED DIFFERENTIAL [id number] 16:01:00* Test Item Value Reference Range Interpretation Comments STAIN ACCEPTABILITY (test code = STN ACCEPTABLE) STAIN ACCEPTABLE ANISOCYTOSIS (test code = ANISO) 1+ MICROCYTOSIS (test code = MICR) 1+ MACROCYTOSIS (test code = MACR) 1+ TARGET CELLS (test code = TGT) 1+ TEAR DROP CELLS (test code = TEAR) 1+ ELLIPTOCYTES (test code = ELL) 1+ CRENATED CELLS (test code = CREN) 1+ PLATELET ESTIMATE (test code = PLTEST) DECREASED PLATELET MORPHOLOGY (test code = PLTMORPH) APPEAR LARGE BASIC METABOLIC [id number] 14:58:00* Test Item Value Reference Range Interpretation Comments SODIUM (test code = NA) 140 mmol/L 136-145 N POTASSIUM (test code = K) 3.5 mmol/L 3.5-5.1 N CHLORIDE (test code = CL) 109.0 mmol/L 98-107 H CARBON DIOXIDE (test code = CO2) 25.0 mmol/L 21-32 N ANION GAP (test code = GAP) 9.5 10-20 L GLUCOSE (test code = GLU) 104 mg/dL 74-106 N BLOOD UREA NITROGEN (test code = BUN) 19 mg/dL 7-18 H GLOMERULAR FILTRATION RATE (test code = GFR) 37 mL/min >=60 Estimated GFR by using Modified MDRD formula.Chronic kidney disease is defined as either kidney damageor GFR <60 mL/min/1.73 m2 for >3 months. CREATININE (test code = CREAT) 1.40 mg/dL 0.55-1.02 H Note change in reference range due to change in reagent. BUN/CREATININE RATIO (test code = BUN/CREA) 13.6 10-20 N CALCIUM (test code = CA) 7.2 mg/dL 8.5-10.1 L [id number] 14:58:00* Test Item Value Reference Range Interpretation Comments PHOSPHORUS (test code = PHOS) 3.1 mg/dL 2.5-4.9 N [id number] 14:58:00* Test Item Value Reference Range Interpretation Comments MAGNESIUM (test code = MAG) 1.6 mg/dL 1.8-2.4 L CALCIUM [id number] 14:58:00* Test Item Value Reference Range Interpretation Comments CALCIUM IONIZED (test code = ERICH) mmol/L 1.12-1.32 CBC W/AUTO [id number] 14:45:00* Test Item Value Reference Range Interpretation Comments WHITE BLOOD CELL (test code = WBC) 12.4 K/mm3 4.5-12.5 N RED BLOOD CELL (test code = RBC) 3.01 mill/mm3 3.7-5.2 L HEMOGLOBIN (test code = HGB) 8.7 gram/dL 11.5-15.5 L HEMATOCRIT (test code = HCT) 26.4 % 36.0-46.0 L MEAN CELL VOLUME (test code = MCV) 87.7 fL 80-98 N MEAN CELL HGB (test code = MCH) 28.9 picogram 27.0-33.0 N MEAN CELL HGB CONCETRATION (test code = MCHC) 33.0 gram/dL 33.0-36. 0 N RED CELL DISTRIBUTION WIDTH (test code = RDW) 16.2 % 11.6-16. 2 N RED CELL DISTRIBUTION WIDTH SD (test code = RDW-SD) 50.1 fL 37 .0-51.0 N PLATELET COUNT (test code = PLT) 47 K/mm3 150-450 LL Results called to [place] [id number] by [facility] 12/11/18 1444Critical results verified and read back by Nurse? Y MEAN PLATELET VOLUME (test code = MPV) 13.1 fL 6.7-11.0 H NEUTROPHIL % (test code = NT%) 87.4 % 39.0-69.0 H IMMATURE GRANULOCYTE % (test code = IG%) 1.4 % 0.0-5.0 N LYMPHOCYTE % (test code = LY%) 6.5 % 25.0-55.0 L MONOCYTE % (test code = MO%) 3.5 % 0.0-10.0 N EOSINOPHIL % (test code = EO%) 1.0 % 0.0-5.0 N BASOPHIL % (test code = BA%) 0.2 % 0.0-1.0 N NUCLEATED RBC % (test code = NRBC%) 0.0 % 0-0 N NEUTROPHIL # (test code = NT#) 10.86 K/mm3 1.8-7.7 H IMMATURE GRANULOCYTE # (test code = IG#) 0.17 x10 3/uL 0-0.03 H LYMPHOCYTE # (test code = LY#) 0.81 K/mm3 1.0-5.0 L MONOCYTE # (test code = MO#) 0.43 K/mm3 0-0.8 N EOSINOPHIL # (test code = EO#) 0.13 K/mm3 0.0-0.5 N BASOPHIL # (test code = BA#) 0.02 K/mm3 0.0-0.2 N NUCLEATED RBC # (test code = NRBC#) 0.00 K/mm3 0.0-0.1 N MANUAL DIFF REQUIRED (test code = MDIFF) NO, ONLY SCAN NEEDED DIFFERENTIAL [id number] 14:45:00* Test Item Value Reference Range Interpretation Comments STAIN ACCEPTABILITY (test code = STN ACCEPTABLE) MORPHOLOGY COMMENT (test code = MOC) PLATELET ESTIMATE (test code = PLTEST) PLATELET MORPHOLOGY (test code = PLTMORPH) CBC W/AUTO [id number] 14:44:00* Test Item Value Reference Range Interpretation Comments WHITE BLOOD CELL (test code = WBC) 12.4 K/mm3 4.5-12.5 N RED BLOOD CELL (test code = RBC) 3.01 mill/mm3 3.7-5.2 L HEMOGLOBIN (test code = HGB) 8.7 gram/dL 11.5-15.5 L HEMATOCRIT (test code = HCT) 26.4 % 36.0-46.0 L MEAN CELL VOLUME (test code = MCV) 87.7 fL 80-98 N MEAN CELL HGB (test code = MCH) 28.9 picogram 27.0-33.0 N MEAN CELL HGB CONCETRATION (test code = MCHC) 33.0 gram/dL 33.0-36. 0 N RED CELL DISTRIBUTION WIDTH (test code = RDW) 16.2 % 11.6-16. 2 N RED CELL DISTRIBUTION WIDTH SD (test code = RDW-SD) 50.1 fL 37 .0-51.0 N PLATELET COUNT (test code = PLT) 47 K/mm3 150-450 LL Results called to [place] [address] by [facility] 12/11/18 1444Critical results verified and read back by Nurse? Y MEAN PLATELET VOLUME (test code = MPV) 13.1 fL 6.7-11.0 H NEUTROPHIL % (test code = NT%) 87.4 % 39.0-69.0 H IMMATURE GRANULOCYTE % (test code = IG%) 1.4 % 0.0-5.0 N LYMPHOCYTE % (test code = LY%) 6.5 % 25.0-55.0 L MONOCYTE % (test code = MO%) 3.5 % 0.0-10.0 N EOSINOPHIL % (test code = EO%) 1.0 % 0.0-5.0 N BASOPHIL % (test code = BA%) 0.2 % 0.0-1.0 N NUCLEATED RBC % (test code = NRBC%) 0.0 % 0-0 N NEUTROPHIL # (test code = NT#) 10.86 K/mm3 1.8-7.7 H IMMATURE GRANULOCYTE # (test code = IG#) 0.17 x10 3/uL 0-0.03 H LYMPHOCYTE # (test code = LY#) 0.81 K/mm3 1.0-5.0 L MONOCYTE # (test code = MO#) 0.43 K/mm3 0-0.8 N EOSINOPHIL # (test code = EO#) 0.13 K/mm3 0.0-0.5 N BASOPHIL # (test code = BA#) 0.02 K/mm3 0.0-0.2 N NUCLEATED RBC # (test code = NRBC#) 0.00 K/mm3 0.0-0.1 N MANUAL DIFF REQUIRED (test code = MDIFF) NO, ONLY SCAN NEEDED DIFFERENTIAL [id number] 14:44:00* Test Item Value Reference Range Interpretation Comments STAIN ACCEPTABILITY (test code = STN ACCEPTABLE) CABOT RINGS (test code = CAB) MORPHOLOGY COMMENT (test code = MOC) PLATELET ESTIMATE (test code = PLTEST) PLATELET MORPHOLOGY (test code = PLTMORPH) CBC W/AUTO [id number] 14:44:00* Test Item Value Reference Range Interpretation Comments WHITE BLOOD CELL (test code = WBC) 12.4 K/mm3 4.5-12.5 N RED BLOOD CELL (test code = RBC) 3.01 mill/mm3 3.7-5.2 L HEMOGLOBIN (test code = HGB) 8.7 gram/dL 11.5-15.5 L HEMATOCRIT (test code = HCT) 26.4 % 36.0-46.0 L MEAN CELL VOLUME (test code = MCV) 87.7 fL 80-98 N MEAN CELL HGB (test code = MCH) 28.9 picogram 27.0-33.0 N MEAN CELL HGB CONCETRATION (test code = MCHC) 33.0 gram/dL 33.0-36. 0 N RED CELL DISTRIBUTION WIDTH (test code = RDW) 16.2 % 11.6-16. 2 N RED CELL DISTRIBUTION WIDTH SD (test code = RDW-SD) 50.1 fL 37 .0-51.0 N PLATELET COUNT (test code = PLT) 47 K/mm3 150-450 LL Results called to [id number] by [facility] 12/11/18 1444Critical results verified and read back by Nurse? Y MEAN PLATELET VOLUME (test code = MPV) 13.1 fL 6.7-11.0 H NEUTROPHIL % (test code = NT%) 87.4 % 39.0-69.0 H IMMATURE GRANULOCYTE % (test code = IG%) 1.4 % 0.0-5.0 N LYMPHOCYTE % (test code = LY%) 6.5 % 25.0-55.0 L MONOCYTE % (test code = MO%) 3.5 % 0.0-10.0 N EOSINOPHIL % (test code = EO%) 1.0 % 0.0-5.0 N BASOPHIL % (test code = BA%) 0.2 % 0.0-1.0 N NUCLEATED RBC % (test code = NRBC%) 0.0 % 0-0 N NEUTROPHIL # (test code = NT#) 10.86 K/mm3 1.8-7.7 H IMMATURE GRANULOCYTE # (test code = IG#) 0.17 x10 3/uL 0-0.03 H LYMPHOCYTE # (test code = LY#) 0.81 K/mm3 1.0-5.0 L MONOCYTE # (test code = MO#) 0.43 K/mm3 0-0.8 N EOSINOPHIL # (test code = EO#) 0.13 K/mm3 0.0-0.5 N BASOPHIL # (test code = BA#) 0.02 K/mm3 0.0-0.2 N NUCLEATED RBC # (test code = NRBC#) 0.00 K/mm3 0.0-0.1 N MANUAL DIFF REQUIRED (test code = MDIFF) NO, ONLY SCAN NEEDED DIFFERENTIAL [id number] 14:44:00* Test Item Value Reference Range Interpretation Comments STAIN ACCEPTABILITY (test code = STN ACCEPTABLE) MORPHOLOGY COMMENT (test code = MOC) PLATELET ESTIMATE (test code = PLTEST) PLATELET MORPHOLOGY (test code = PLTMORPH) CBC W/AUTO [id number] 14:44:00* Test Item Value Reference Range Interpretation Comments WHITE BLOOD CELL (test code = WBC) 12.4 K/mm3 4.5-12.5 N RED BLOOD CELL (test code = RBC) 3.01 mill/mm3 3.7-5.2 L HEMOGLOBIN (test code = HGB) 8.7 gram/dL 11.5-15.5 L HEMATOCRIT (test code = HCT) 26.4 % 36.0-46.0 L MEAN CELL VOLUME (test code = MCV) 87.7 fL 80-98 N MEAN CELL HGB (test code = MCH) 28.9 picogram 27.0-33.0 N MEAN CELL HGB CONCETRATION (test code = MCHC) 33.0 gram/dL 33.0-36. 0 N RED CELL DISTRIBUTION WIDTH (test code = RDW) 16.2 % 11.6-16. 2 N RED CELL DISTRIBUTION WIDTH SD (test code = RDW-SD) 50.1 fL 37 .0-51.0 N PLATELET COUNT (test code = PLT) 47 K/mm3 150-450 LL Results called to [place] [id number] by [facility] 12/11/18 1444Critical results verified and read back by Nurse? Y MEAN PLATELET VOLUME (test code = MPV) 13.1 fL 6.7-11.0 H NEUTROPHIL % (test code = NT%) 87.4 % 39.0-69.0 H IMMATURE GRANULOCYTE % (test code = IG%) 1.4 % 0.0-5.0 N LYMPHOCYTE % (test code = LY%) 6.5 % 25.0-55.0 L MONOCYTE % (test code = MO%) 3.5 % 0.0-10.0 N EOSINOPHIL % (test code = EO%) 1.0 % 0.0-5.0 N BASOPHIL % (test code = BA%) 0.2 % 0.0-1.0 N NUCLEATED RBC % (test code = NRBC%) 0.0 % 0-0 N NEUTROPHIL # (test code = NT#) 10.86 K/mm3 1.8-7.7 H IMMATURE GRANULOCYTE # (test code = IG#) 0.17 x10 3/uL 0-0.03 H LYMPHOCYTE # (test code = LY#) 0.81 K/mm3 1.0-5.0 L MONOCYTE # (test code = MO#) 0.43 K/mm3 0-0.8 N EOSINOPHIL # (test code = EO#) 0.13 K/mm3 0.0-0.5 N BASOPHIL # (test code = BA#) 0.02 K/mm3 0.0-0.2 N NUCLEATED RBC # (test code = NRBC#) 0.00 K/mm3 0.0-0.1 N MANUAL DIFF REQUIRED (test code = MDIFF) NO, ONLY SCAN NEEDED DIFFERENTIAL [id number] 14:44:00* Test Item Value Reference Range Interpretation Comments STAIN ACCEPTABILITY (test code = STN ACCEPTABLE) CABOT RINGS (test code = CAB) MORPHOLOGY COMMENT (test code = MOC) PLATELET ESTIMATE (test code = PLTEST) PLATELET MORPHOLOGY (test code = PLTMORPH) BASIC METABOLIC [id number] 07:46:00* Test Item Value Reference Range Interpretation Comments SODIUM (test code = NA) 141 mmol/L 136-145 N POTASSIUM (test code = K) 3.8 mmol/L 3.5-5.1 N CHLORIDE (test code = CL) 108.0 mmol/L 98-107 H CARBON DIOXIDE (test code = CO2) 22.0 mmol/L 21-32 N ANION GAP (test code = GAP) 14.8 10-20 N GLUCOSE (test code = GLU) 108 mg/dL 74-106 H BLOOD UREA NITROGEN (test code = BUN) 19 mg/dL 7-18 H GLOMERULAR FILTRATION RATE (test code = GFR) 40 mL/min >=60 Estimated GFR by using Modified MDRD formula.Chronic kidney disease is defined as either kidney damageor GFR <60 mL/min/1.73 m2 for >3 months. CREATININE (test code = CREAT) 1.30 mg/dL 0.55-1.02 H Note change in reference range due to change in reagent. BUN/CREATININE RATIO (test code = BUN/CREA) 14.6 10-20 N CALCIUM (test code = CA) 7.2 mg/dL 8.5-10.1 L [id number] 07:46:00* Test Item Value Reference Range Interpretation Comments PHOSPHORUS (test code = PHOS) 3.4 mg/dL 2.5-4.9 N [id number] 07:46:00* Test Item Value Reference Range Interpretation Comments MAGNESIUM (test code = MAG) 1.9 mg/dL 1.8-2.4 N BASIC METABOLIC [id number] 07:37:00* Test Item Value Reference Range Interpretation Comments SODIUM (test code = NA) 141 mmol/L 136-145 N POTASSIUM (test code = K) 3.8 mmol/L 3.5-5.1 N CHLORIDE (test code = CL) 108.0 mmol/L 98-107 H CARBON DIOXIDE (test code = CO2) mmol/L 21-32 ANION GAP (test code = GAP) 10-20 GLUCOSE (test code = GLU) mg/dL 74-106 BLOOD UREA NITROGEN (test code = BUN) mg/dL 7-18 GLOMERULAR FILTRATION RATE (test code = GFR) mL/min >=60 CREATININE (test code = CREAT) mg/dL 0.55-1.02 BUN/CREATININE RATIO (test code = BUN/CREA) 10-20 CALCIUM (test code = CA) mg/dL 8.5-10.1 [id number] 07:37:00* Test Item Value Reference Range Interpretation Comments PHOSPHORUS (test code = PHOS) mg/dL 2.5-4.9 [id number] 07:37:00* Test Item Value Reference Range Interpretation Comments MAGNESIUM (test code = MAG) mg/dL 1.8-2.4 CBC W/AUTO [id number] 07:35:00* Test Item Value Reference Range Interpretation Comments WHITE BLOOD CELL (test code = WBC) 14.8 K/mm3 4.5-12.5 H RED BLOOD CELL (test code = RBC) 3.41 mill/mm3 3.7-5.2 L HEMOGLOBIN (test code = HGB) 9.7 gram/dL 11.5-15.5 L HEMATOCRIT (test code = HCT) 29.8 % 36.0-46.0 L MEAN CELL VOLUME (test code = MCV) 87.4 fL 80-98 N MEAN CELL HGB (test code = MCH) 28.4 picogram 27.0-33.0 N MEAN CELL HGB CONCETRATION (test code = MCHC) 32.6 gram/dL 33.0-36. 0 L RED CELL DISTRIBUTION WIDTH (test code = RDW) 16.4 % 11.6-16. 2 H RED CELL DISTRIBUTION WIDTH SD (test code = RDW-SD) 51.0 fL 37 .0-51.0 N PLATELET COUNT (test code = PLT) 54 K/mm3 150-450 L MEAN PLATELET VOLUME (test code = MPV) 13.5 fL 6.7-11.0 H NEUTROPHIL % (test code = NT%) 88.4 % 39.0-69.0 H IMMATURE GRANULOCYTE % (test code = IG%) 2.8 % 0.0-5.0 N LYMPHOCYTE % (test code = LY%) 5.3 % 25.0-55.0 L MONOCYTE % (test code = MO%) 3.1 % 0.0-10.0 N EOSINOPHIL % (test code = EO%) 0.3 % 0.0-5.0 N BASOPHIL % (test code = BA%) 0.1 % 0.0-1.0 N NUCLEATED RBC % (test code = NRBC%) 0.0 % 0-0 N NEUTROPHIL # (test code = NT#) 13.12 K/mm3 1.8-7.7 H IMMATURE GRANULOCYTE # (test code = IG#) 0.41 x10 3/uL 0-0.03 H LYMPHOCYTE # (test code = LY#) 0.79 K/mm3 1.0-5.0 L MONOCYTE # (test code = MO#) 0.46 K/mm3 0-0.8 N EOSINOPHIL # (test code = EO#) 0.04 K/mm3 0.0-0.5 N BASOPHIL # (test code = BA#) 0.01 K/mm3 0.0-0.2 N NUCLEATED RBC # (test code = NRBC#) 0.00 K/mm3 0.0-0.1 N MANUAL DIFF REQUIRED (test code = MDIFF) NO, ONLY SCAN NEEDED DIFFERENTIAL [id number] 07:35:00* Test Item Value Reference Range Interpretation Comments STAIN ACCEPTABILITY (test code = STN ACCEPTABLE) STAIN ACCEPTABLE ANISOCYTOSIS (test code = ANISO) 1+ MACROCYTOSIS (test code = MACR) 1+ PLATELET ESTIMATE (test code = PLTEST) DECREASED PLATELET MORPHOLOGY (test code = PLTMORPH) NORMAL CBC W/AUTO [id number] 07:13:00* Test Item Value Reference Range Interpretation Comments WHITE BLOOD CELL (test code = WBC) 14.8 K/mm3 4.5-12.5 H RED BLOOD CELL (test code = RBC) 3.41 mill/mm3 3.7-5.2 L HEMOGLOBIN (test code = HGB) 9.7 gram/dL 11.5-15.5 L HEMATOCRIT (test code = HCT) 29.8 % 36.0-46.0 L MEAN CELL VOLUME (test code = MCV) 87.4 fL 80-98 N MEAN CELL HGB (test code = MCH) 28.4 picogram 27.0-33.0 N MEAN CELL HGB CONCETRATION (test code = MCHC) 32.6 gram/dL 33.0-36. 0 L RED CELL DISTRIBUTION WIDTH (test code = RDW) 16.4 % 11.6-16. 2 H RED CELL DISTRIBUTION WIDTH SD (test code = RDW-SD) 51.0 fL 37 .0-51.0 N PLATELET COUNT (test code = PLT) 54 K/mm3 150-450 L MEAN PLATELET VOLUME (test code = MPV) 13.5 fL 6.7-11.0 H NEUTROPHIL % (test code = NT%) 88.4 % 39.0-69.0 H IMMATURE GRANULOCYTE % (test code = IG%) 2.8 % 0.0-5.0 N LYMPHOCYTE % (test code = LY%) 5.3 % 25.0-55.0 L MONOCYTE % (test code = MO%) 3.1 % 0.0-10.0 N EOSINOPHIL % (test code = EO%) 0.3 % 0.0-5.0 N BASOPHIL % (test code = BA%) 0.1 % 0.0-1.0 N NUCLEATED RBC % (test code = NRBC%) 0.0 % 0-0 N NEUTROPHIL # (test code = NT#) 13.12 K/mm3 1.8-7.7 H IMMATURE GRANULOCYTE # (test code = IG#) 0.41 x10 3/uL 0-0.03 H LYMPHOCYTE # (test code = LY#) 0.79 K/mm3 1.0-5.0 L MONOCYTE # (test code = MO#) 0.46 K/mm3 0-0.8 N EOSINOPHIL # (test code = EO#) 0.04 K/mm3 0.0-0.5 N BASOPHIL # (test code = BA#) 0.01 K/mm3 0.0-0.2 N NUCLEATED RBC # (test code = NRBC#) 0.00 K/mm3 0.0-0.1 N MANUAL DIFF REQUIRED (test code = MDIFF) NO, ONLY SCAN NEEDED DIFFERENTIAL [id number] 07:13:00* Test Item Value Reference Range Interpretation Comments STAIN ACCEPTABILITY (test code = STN ACCEPTABLE) CABOT RINGS (test code = CAB) MORPHOLOGY COMMENT (test code = MOC) PLATELET ESTIMATE (test code = PLTEST) PLATELET MORPHOLOGY (test code = PLTMORPH) CBC W/AUTO [id number] 07:13:00* Test Item Value Reference Range Interpretation Comments WHITE BLOOD CELL (test code = WBC) 14.8 K/mm3 4.5-12.5 H RED BLOOD CELL (test code = RBC) 3.41 mill/mm3 3.7-5.2 L HEMOGLOBIN (test code = HGB) 9.7 gram/dL 11.5-15.5 L HEMATOCRIT (test code = HCT) 29.8 % 36.0-46.0 L MEAN CELL VOLUME (test code = MCV) 87.4 fL 80-98 N MEAN CELL HGB (test code = MCH) 28.4 picogram 27.0-33.0 N MEAN CELL HGB CONCETRATION (test code = MCHC) 32.6 gram/dL 33.0-36. 0 L RED CELL DISTRIBUTION WIDTH (test code = RDW) 16.4 % 11.6-16. 2 H RED CELL DISTRIBUTION WIDTH SD (test code = RDW-SD) 51.0 fL 37 .0-51.0 N PLATELET COUNT (test code = PLT) 54 K/mm3 150-450 L MEAN PLATELET VOLUME (test code = MPV) 13.5 fL 6.7-11.0 H NEUTROPHIL % (test code = NT%) 88.4 % 39.0-69.0 H IMMATURE GRANULOCYTE % (test code = IG%) 2.8 % 0.0-5.0 N LYMPHOCYTE % (test code = LY%) 5.3 % 25.0-55.0 L MONOCYTE % (test code = MO%) 3.1 % 0.0-10.0 N EOSINOPHIL % (test code = EO%) 0.3 % 0.0-5.0 N BASOPHIL % (test code = BA%) 0.1 % 0.0-1.0 N NUCLEATED RBC % (test code = NRBC%) 0.0 % 0-0 N NEUTROPHIL # (test code = NT#) 13.12 K/mm3 1.8-7.7 H IMMATURE GRANULOCYTE # (test code = IG#) 0.41 x10 3/uL 0-0.03 H LYMPHOCYTE # (test code = LY#) 0.79 K/mm3 1.0-5.0 L MONOCYTE # (test code = MO#) 0.46 K/mm3 0-0.8 N EOSINOPHIL # (test code = EO#) 0.04 K/mm3 0.0-0.5 N BASOPHIL # (test code = BA#) 0.01 K/mm3 0.0-0.2 N NUCLEATED RBC # (test code = NRBC#) 0.00 K/mm3 0.0-0.1 N MANUAL DIFF REQUIRED (test code = MDIFF) NO, ONLY SCAN NEEDED DIFFERENTIAL [id number] 07:13:00* Test Item Value Reference Range Interpretation Comments STAIN ACCEPTABILITY (test code = STN ACCEPTABLE) MORPHOLOGY COMMENT (test code = MOC) PLATELET ESTIMATE (test code = PLTEST) PLATELET MORPHOLOGY (test code = PLTMORPH) CBC W/AUTO [id number] 07:13:00* Test Item Value Reference Range Interpretation Comments WHITE BLOOD CELL (test code = WBC) 14.8 K/mm3 4.5-12.5 H RED BLOOD CELL (test code = RBC) 3.41 mill/mm3 3.7-5.2 L HEMOGLOBIN (test code = HGB) 9.7 gram/dL 11.5-15.5 L HEMATOCRIT (test code = HCT) 29.8 % 36.0-46.0 L MEAN CELL VOLUME (test code = MCV) 87.4 fL 80-98 N MEAN CELL HGB (test code = MCH) 28.4 picogram 27.0-33.0 N MEAN CELL HGB CONCETRATION (test code = MCHC) 32.6 gram/dL 33.0-36. 0 L RED CELL DISTRIBUTION WIDTH (test code = RDW) 16.4 % 11.6-16. 2 H RED CELL DISTRIBUTION WIDTH SD (test code = RDW-SD) 51.0 fL 37 .0-51.0 N PLATELET COUNT (test code = PLT) 54 K/mm3 150-450 L MEAN PLATELET VOLUME (test code = MPV) 13.5 fL 6.7-11.0 H NEUTROPHIL % (test code = NT%) 88.4 % 39.0-69.0 H IMMATURE GRANULOCYTE % (test code = IG%) 2.8 % 0.0-5.0 N LYMPHOCYTE % (test code = LY%) 5.3 % 25.0-55.0 L MONOCYTE % (test code = MO%) 3.1 % 0.0-10.0 N EOSINOPHIL % (test code = EO%) 0.3 % 0.0-5.0 N BASOPHIL % (test code = BA%) 0.1 % 0.0-1.0 N NUCLEATED RBC % (test code = NRBC%) 0.0 % 0-0 N NEUTROPHIL # (test code = NT#) 13.12 K/mm3 1.8-7.7 H IMMATURE GRANULOCYTE # (test code = IG#) 0.41 x10 3/uL 0-0.03 H LYMPHOCYTE # (test code = LY#) 0.79 K/mm3 1.0-5.0 L MONOCYTE # (test code = MO#) 0.46 K/mm3 0-0.8 N EOSINOPHIL # (test code = EO#) 0.04 K/mm3 0.0-0.5 N BASOPHIL # (test code = BA#) 0.01 K/mm3 0.0-0.2 N NUCLEATED RBC # (test code = NRBC#) 0.00 K/mm3 0.0-0.1 N MANUAL DIFF REQUIRED (test code = MDIFF) NO, ONLY SCAN NEEDED DIFFERENTIAL [id number] 07:13:00* Test Item Value Reference Range Interpretation Comments STAIN ACCEPTABILITY (test code = STN ACCEPTABLE) MORPHOLOGY COMMENT (test code = MOC) PLATELET ESTIMATE (test code = PLTEST) PLATELET MORPHOLOGY (test code = PLTMORPH) CBC W/AUTO [id number] 07:13:00* Test Item Value Reference Range Interpretation Comments WHITE BLOOD CELL (test code = WBC) 14.8 K/mm3 4.5-12.5 H RED BLOOD CELL (test code = RBC) 3.41 mill/mm3 3.7-5.2 L HEMOGLOBIN (test code = HGB) 9.7 gram/dL 11.5-15.5 L HEMATOCRIT (test code = HCT) 29.8 % 36.0-46.0 L MEAN CELL VOLUME (test code = MCV) 87.4 fL 80-98 N MEAN CELL HGB (test code = MCH) 28.4 picogram 27.0-33.0 N MEAN CELL HGB CONCETRATION (test code = MCHC) 32.6 gram/dL 33.0-36. 0 L RED CELL DISTRIBUTION WIDTH (test code = RDW) 16.4 % 11.6-16. 2 H RED CELL DISTRIBUTION WIDTH SD (test code = RDW-SD) 51.0 fL 37 .0-51.0 N PLATELET COUNT (test code = PLT) 54 K/mm3 150-450 L MEAN PLATELET VOLUME (test code = MPV) 13.5 fL 6.7-11.0 H NEUTROPHIL % (test code = NT%) 88.4 % 39.0-69.0 H IMMATURE GRANULOCYTE % (test code = IG%) 2.8 % 0.0-5.0 N LYMPHOCYTE % (test code = LY%) 5.3 % 25.0-55.0 L MONOCYTE % (test code = MO%) 3.1 % 0.0-10.0 N EOSINOPHIL % (test code = EO%) 0.3 % 0.0-5.0 N BASOPHIL % (test code = BA%) 0.1 % 0.0-1.0 N NUCLEATED RBC % (test code = NRBC%) 0.0 % 0-0 N NEUTROPHIL # (test code = NT#) 13.12 K/mm3 1.8-7.7 H IMMATURE GRANULOCYTE # (test code = IG#) 0.41 x10 3/uL 0-0.03 H LYMPHOCYTE # (test code = LY#) 0.79 K/mm3 1.0-5.0 L MONOCYTE # (test code = MO#) 0.46 K/mm3 0-0.8 N EOSINOPHIL # (test code = EO#) 0.04 K/mm3 0.0-0.5 N BASOPHIL # (test code = BA#) 0.01 K/mm3 0.0-0.2 N NUCLEATED RBC # (test code = NRBC#) 0.00 K/mm3 0.0-0.1 N MANUAL DIFF REQUIRED (test code = MDIFF) NO, ONLY SCAN NEEDED DIFFERENTIAL [id number] 07:13:00* Test Item Value Reference Range Interpretation Comments STAIN ACCEPTABILITY (test code = STN ACCEPTABLE) CABOT RINGS (test code = CAB) MORPHOLOGY COMMENT (test code = MOC) PLATELET ESTIMATE (test code = PLTEST) PLATELET MORPHOLOGY (test code = PLTMORPH) - XR CHEST 1 [id number] 06:59:00 FAX: Alecia Girard NP [phone] [place]: St: DIS FAX: Y Ilan Stein MD Name: MOJGAN CUMMINGS [facility] : 1950 Age/S: 68/F [address] [facility] Unit #: [id number] Loc: [place] [address] Phys: Alecia Girard NP Acct: [id number] Dis Date: Status: DIS IN PHONE #: [phone] Exam Date: 12/11/2018634 FAX #: [phone] Reason: sob EXAMS: CPT CODE: [id number] XR CHEST 1 V 06556 REASON FOR EXAM: sob EXAM ORDER DATE: 12/11/2018 5:00 AM Ordering Crispin: Alecia Girard NP PROCEDURE: - XR CHEST 1 V COMPARISON: 12/10/2018 FINDINGS: Portable AP frontal view of the chest obtained at 6:37 AM shows patchy airspace opacity of the bases. There is no evidence of effusion. The heart size is minimally enlarged. Stable appearance of the tracheostomy tube and right subclavian central line. Pulmonary vasculatures are minimally congested. IMPRESSION: Patchy atelectasis in the bases at 0659 Reported and signed by: Brayan Toro M.D. CC: Alecia Girard NP; Ilan Stein Technologist: OCTAVIO VASQUEZ JR Trnscrd Date/Time/By: 12/11/2018 (0659) : By: GordoL Orig Print D/T: S: 12/11/2018 (0703) PAGE 1 Signed Report - XR CHEST 1 V 2018-12-11 06:59:00 FAX: Alecia Girard NP [phone] [place]: St: [facility] FAX: Ilan Holt MD Name: MOJGAN CUMMINGS [facility] : 1950 Age/S: 68/F [address] [facility] Unit #: [id number] Loc: V.S[address] [place] [address] Phys: Alecia Girard NP Acct: [id number] Dis Date: Status: ADM IN PHONE #: [phone] Exam Date: 12/11/2018 06 FAX #: [phone] Reason: sob EXAMS: CPT CODE: [id number] XR CHEST 1 V 81748 REASON FOR EXAM: sob EXAM ORDER DATE: 12/11/2018 5:00 AM Ordering Crispin: Alecia Girard NP PROCEDURE: - XR CHEST 1 V COMPARISON: 12/10/2018 FINDINGS: Portable AP frontal view of the chest obtained at 6:37 AM shows patchy airspace opacity of the bases. There is no evidence of effusion. The heart size is minimally enlarged. Stable appearance of the tracheostomy tube and right subclavian central line. Pulmonary vasculatures are minimally congested. IMPRESSION: Patchy atelectasis in the bases at 0659 Reported and signed by: Brayan Toro M.D. CC: Alecia Girard NP; Ilan Stein Technologist: OCTAVIO VASQUEZ JR Trnscrd Date/Time/By: 12/11/2018 (0659) : By: GordoL Orig Print D/T: S: 12/11/2018 (8891) PAGE 1 Signed Report - XR CHEST 1 V 2018-12-11 06:59:00 FAX: Alecia Girard NP [phone] [place]: St: DIS FAX: Ilan Holt MD Name: MOJGAN CUMMINGS [facility] : 1950 Age/S: 68/F [address] [facility] Unit #: [id number] Loc: [facility] [place] [address] Phys: Alecia Girard NP Acct: [id number] Dis Date: Status: DIS IN PHONE #: [phone] Exam Date: 12/11/2018634 FAX #: [phone] Reason: sob EXAMS: CPT CODE: [id number] XR CHEST 1 V 79506 REASON FOR EXAM: sob EXAM ORDER DATE: 12/11/2018 5:00 AM Ordering MLatrell: Alecia Girard NP PROCEDURE: - XR CHEST 1 V COMPARISON: 12/10/2018 FINDINGS: Portable AP frontal view of the chest obtained at 6:37 AM shows patchy airspace opacity of the bases. There is no evidence of effusion. The heart size is minimally enlarged. Stable appearance of the tracheostomy tube and right subclavian central line. Pulmonary vasculatures are minimally congested. IMPRESSION: Patchy atelectasis in the bases at 0659 Reported and signed by: Brayan Toro M.D. CC: Alecia Girard PRODUCTION CLERK; Ilan Stein Technologist: OCTAVIO VASQUEZ JR Trnscrd Date/Time/By: 12/11/2018 (0659) : By: GordoL Orig Print D/T: S: 12/11/2018 (0703) PAGE 1 Signed Report CBC W/AUTO DIFF 2018-12-10 10:13:00* Test Item Value Reference Range Interpretation Comments WHITE BLOOD CELL (test code = WBC) 11.6 K/mm3 4.5-12.5 N RED BLOOD CELL (test code = RBC) 3.34 mill/mm3 3.7-5.2 L HEMOGLOBIN (test code = HGB) 9.8 gram/dL 11.5-15.5 L RESULT VERIFIED BY REPEAT ANALYSIS HEMATOCRIT (test code = HCT) 28.4 % 36.0-46.0 L MEAN CELL VOLUME (test code = MCV) 85.0 fL 80-98 N MEAN CELL HGB (test code = MCH) 29.3 picogram 27.0-33.0 N MEAN CELL HGB CONCETRATION (test code = MCHC) 34.5 gram/dL 33.0-36. 0 N RED CELL DISTRIBUTION WIDTH (test code = RDW) 15.4 % 11.6-16. 2 N RED CELL DISTRIBUTION WIDTH SD (test code = RDW-SD) 46.8 fL 37 .0-51.0 N PLATELET COUNT (test code = PLT) 69 K/mm3 150-450 L MEAN PLATELET VOLUME (test code = MPV) 13.6 fL 6.7-11.0 H NEUTROPHIL % (test code = NT%) 87.4 % 39.0-69.0 H IMMATURE GRANULOCYTE % (test code = IG%) 0.9 % 0.0-5.0 N LYMPHOCYTE % (test code = LY%) 7.8 % 25.0-55.0 L MONOCYTE % (test code = MO%) 2.5 % 0.0-10.0 N EOSINOPHIL % (test code = EO%) 1.3 % 0.0-5.0 N BASOPHIL % (test code = BA%) 0.1 % 0.0-1.0 N NUCLEATED RBC % (test code = NRBC%) 0.0 % 0-0 N NEUTROPHIL # (test code = NT#) 10.13 K/mm3 1.8-7.7 H IMMATURE GRANULOCYTE # (test code = IG#) 0.11 x10 3/uL 0-0.03 H LYMPHOCYTE # (test code = LY#) 0.91 K/mm3 1.0-5.0 L MONOCYTE # (test code = MO#) 0.29 K/mm3 0-0.8 N EOSINOPHIL # (test code = EO#) 0.15 K/mm3 0.0-0.5 N BASOPHIL # (test code = BA#) 0.01 K/mm3 0.0-0.2 N NUCLEATED RBC # (test code = NRBC#) 0.00 K/mm3 0.0-0.1 N MANUAL DIFF REQUIRED (test code = MDIFF) NO, ONLY SCAN NEEDED DIFFERENTIAL [id number] 10:13:00* Test Item Value Reference Range Interpretation Comments STAIN ACCEPTABILITY (test code = STN ACCEPTABLE) STAIN ACCEPTABLE POLYCHROMASIA (test code = POLC) 1+ HYPOCHROMIA (test code = HYPO) 1+ POIKILOCYTOSIS (test code = POIK) 1+ ANISOCYTOSIS (test code = ANISO) 2+ SCHISTOCYTES (test code = HANH) 1+ PLATELET ESTIMATE (test code = PLTEST) DECREASED PLATELET MORPHOLOGY (test code = PLTMORPH) NORMAL - XR CHEST 1 [id number] 07:27:00 FAX: Alecia Girard NP [phone] [place]: B St: DIS FAX: Ilan Holt MD Name: MOJGAN CUMMINGS [facility] : 1950 Age/S: 68/F [address] [facility] Unit #: [id number] Loc: [place] [address] Phys: Alecia Girard NP Acct: [id number] Dis Date: Status: DIS IN PHONE #: [phone] Exam Date: 12/10/2018 0453 FAX #: [phone] Reason: sob EXAMS: CPT CODE: [id number] XR CHEST 1 V 28676 HISTORY: Shortness of breath. COMPARISON: Previous day. Tracheostomy tube and the right central line are unchanged. No acute infiltrates, effusion or congestion. Dependent changes. Cardiomegaly. IMPRESSION: No acute infi ltrates, effusion or congestion. Dependent changes. at 0727 Report ed and signed by: Clem Grissom M.D. CC: Alecia Girard NP; Ilan Stein Technologist: RT CISCO(R); aMry Harris Date/Time/By: 12/10/2018 (0741) : By: donna [email or web address] Orig Print D/T: S: 12/10/2018 (8883) P AGE 1 Signed Report - XR CHEST 1 [id number] 07:27:00 FAX: Alecia Girard NP [phone] [place]: St: ADM FAX: Y Ilan Stein MD Name: MOJGAN CUMMINGS [facility] : 1950 Age/S: 68/F [address] [facility] Unit #: [id number] Loc: [address] [address] Phys: Alecia Girard NP Acct: [id number] Dis Date: Status: ADM IN PHONE #: [phone] Exam Date: 12/10/2018 045 FAX #: [phone] Reason: sob EXAMS: CPT CODE: [id number] XR CHEST 1 V 67605 HISTORY: Shortness of breath. COMPARISON: Previous day. Tracheostomy tube and the right central line are unchanged. No acute infiltrates, effusion or congestion. Dependent changes. Cardiomegaly. IMPRESSION: No acute infi ltrates, effusion or congestion. Dependent changes. at 0727 Report ed and signed by: Clem Grissom M.D. CC: Alecia Girard NP; Ilan Stein Technologist: RT CISCO(R); Mary Harris Date/Time/By: 12/10/2018 (726) : By: donna [email or web address] Orig Print D/T: S: 12/10/2018 (4630) P AGE 1 Signed Report - XR CHEST 1 [id number] 07:27:00 FAX: Alecia Girard NP [phone] [place]: St: DIS FAX: Y Ilan Stein MD Name: MOJGAN CUMMINGS [facility] : 1950 Age/S: 68/F [address] [facility] Unit #: [id number] Loc: [place] [address] Phys: Alecia Girard NP Acct: [id number] Dis Date: Status: DIS IN PHONE #: [phone] Exam Date: 12/10/2018 0453 FAX #: [phone] Reason: sob EXAMS: CPT CODE: [id number] XR CHEST 1 V 69261 HISTORY: Shortness of breath. COMPARISON: Previous day. Tracheostomy tube and the right central line are unchanged. No acute infiltrates, effusion or congestion. Dependent changes. Cardiomegaly. IMPRESSION: No acute infi ltrates, effusion or congestion. Dependent changes. at 0727 Report ed and signed by: Clem Grissom M.D. CC: Alecia Girard PRODUCTION CLERK; Ilan Stein Technologist: JUNAID BRAY, RT(R); Mary Harris Trnscrd Date/Time/By: 12/10/2018 (726) : By: donna [email or web address] Orig Print D/T: S: 12/10/2018 (30) P AGE 1 Signed Report CBC W/AUTO [id number] 07:20:00* Test Item Value Reference Range Interpretation Comments WHITE BLOOD CELL (test code = WBC) 11.6 K/mm3 4.5-12.5 N RED BLOOD CELL (test code = RBC) 3.34 mill/mm3 3.7-5.2 L HEMOGLOBIN (test code = HGB) 9.8 gram/dL 11.5-15.5 L RESULT VERIFIED BY REPEAT ANALYSIS HEMATOCRIT (test code = HCT) 28.4 % 36.0-46.0 L MEAN CELL VOLUME (test code = MCV) 85.0 fL 80-98 N MEAN CELL HGB (test code = MCH) 29.3 picogram 27.0-33.0 N MEAN CELL HGB CONCETRATION (test code = MCHC) 34.5 gram/dL 33.0-36. 0 N RED CELL DISTRIBUTION WIDTH (test code = RDW) 15.4 % 11.6-16. 2 N RED CELL DISTRIBUTION WIDTH SD (test code = RDW-SD) 46.8 fL 37 .0-51.0 N PLATELET COUNT (test code = PLT) 69 K/mm3 150-450 L MEAN PLATELET VOLUME (test code = MPV) 13.6 fL 6.7-11.0 H NEUTROPHIL % (test code = NT%) 87.4 % 39.0-69.0 H IMMATURE GRANULOCYTE % (test code = IG%) 0.9 % 0.0-5.0 N LYMPHOCYTE % (test code = LY%) 7.8 % 25.0-55.0 L MONOCYTE % (test code = MO%) 2.5 % 0.0-10.0 N EOSINOPHIL % (test code = EO%) 1.3 % 0.0-5.0 N BASOPHIL % (test code = BA%) 0.1 % 0.0-1.0 N NUCLEATED RBC % (test code = NRBC%) 0.0 % 0-0 N NEUTROPHIL # (test code = NT#) 10.13 K/mm3 1.8-7.7 H IMMATURE GRANULOCYTE # (test code = IG#) 0.11 x10 3/uL 0-0.03 H LYMPHOCYTE # (test code = LY#) 0.91 K/mm3 1.0-5.0 L MONOCYTE # (test code = MO#) 0.29 K/mm3 0-0.8 N EOSINOPHIL # (test code = EO#) 0.15 K/mm3 0.0-0.5 N BASOPHIL # (test code = BA#) 0.01 K/mm3 0.0-0.2 N NUCLEATED RBC # (test code = NRBC#) 0.00 K/mm3 0.0-0.1 N MANUAL DIFF REQUIRED (test code = MDIFF) NO, ONLY SCAN NEEDED DIFFERENTIAL [id number] 07:20:00* Test Item Value Reference Range Interpretation Comments STAIN ACCEPTABILITY (test code = STN ACCEPTABLE) CABOT RINGS (test code = CAB) MORPHOLOGY COMMENT (test code = MOC) PLATELET ESTIMATE (test code = PLTEST) PLATELET MORPHOLOGY (test code = PLTMORPH) CBC W/AUTO [id number] 07:20:00* Test Item Value Reference Range Interpretation Comments WHITE BLOOD CELL (test code = WBC) 11.6 K/mm3 4.5-12.5 N RED BLOOD CELL (test code = RBC) 3.34 mill/mm3 3.7-5.2 L HEMOGLOBIN (test code = HGB) 9.8 gram/dL 11.5-15.5 L RESULT VERIFIED BY REPEAT ANALYSIS HEMATOCRIT (test code = HCT) 28.4 % 36.0-46.0 L MEAN CELL VOLUME (test code = MCV) 85.0 fL 80-98 N MEAN CELL HGB (test code = MCH) 29.3 picogram 27.0-33.0 N MEAN CELL HGB CONCETRATION (test code = MCHC) 34.5 gram/dL 33.0-36. 0 N RED CELL DISTRIBUTION WIDTH (test code = RDW) 15.4 % 11.6-16. 2 N RED CELL DISTRIBUTION WIDTH SD (test code = RDW-SD) 46.8 fL 37 .0-51.0 N PLATELET COUNT (test code = PLT) 69 K/mm3 150-450 L MEAN PLATELET VOLUME (test code = MPV) 13.6 fL 6.7-11.0 H NEUTROPHIL % (test code = NT%) 87.4 % 39.0-69.0 H IMMATURE GRANULOCYTE % (test code = IG%) 0.9 % 0.0-5.0 N LYMPHOCYTE % (test code = LY%) 7.8 % 25.0-55.0 L MONOCYTE % (test code = MO%) 2.5 % 0.0-10.0 N EOSINOPHIL % (test code = EO%) 1.3 % 0.0-5.0 N BASOPHIL % (test code = BA%) 0.1 % 0.0-1.0 N NUCLEATED RBC % (test code = NRBC%) 0.0 % 0-0 N NEUTROPHIL # (test code = NT#) 10.13 K/mm3 1.8-7.7 H IMMATURE GRANULOCYTE # (test code = IG#) 0.11 x10 3/uL 0-0.03 H LYMPHOCYTE # (test code = LY#) 0.91 K/mm3 1.0-5.0 L MONOCYTE # (test code = MO#) 0.29 K/mm3 0-0.8 N EOSINOPHIL # (test code = EO#) 0.15 K/mm3 0.0-0.5 N BASOPHIL # (test code = BA#) 0.01 K/mm3 0.0-0.2 N NUCLEATED RBC # (test code = NRBC#) 0.00 K/mm3 0.0-0.1 N MANUAL DIFF REQUIRED (test code = MDIFF) NO, ONLY SCAN NEEDED DIFFERENTIAL [id number] 07:20:00* Test Item Value Reference Range Interpretation Comments STAIN ACCEPTABILITY (test code = STN ACCEPTABLE) CABOT RINGS (test code = CAB) MORPHOLOGY COMMENT (test code = MOC) PLATELET ESTIMATE (test code = PLTEST) PLATELET MORPHOLOGY (test code = PLTMORPH) CBC W/AUTO [id number] 07:20:00* Test Item Value Reference Range Interpretation Comments WHITE BLOOD CELL (test code = WBC) 11.6 K/mm3 4.5-12.5 N RED BLOOD CELL (test code = RBC) 3.34 mill/mm3 3.7-5.2 L HEMOGLOBIN (test code = HGB) 9.8 gram/dL 11.5-15.5 L RESULT VERIFIED BY REPEAT ANALYSIS HEMATOCRIT (test code = HCT) 28.4 % 36.0-46.0 L MEAN CELL VOLUME (test code = MCV) 85.0 fL 80-98 N MEAN CELL HGB (test code = MCH) 29.3 picogram 27.0-33.0 N MEAN CELL HGB CONCETRATION (test code = MCHC) 34.5 gram/dL 33.0-36. 0 N RED CELL DISTRIBUTION WIDTH (test code = RDW) 15.4 % 11.6-16. 2 N RED CELL DISTRIBUTION WIDTH SD (test code = RDW-SD) 46.8 fL 37 .0-51.0 N PLATELET COUNT (test code = PLT) 69 K/mm3 150-450 L MEAN PLATELET VOLUME (test code = MPV) 13.6 fL 6.7-11.0 H NEUTROPHIL % (test code = NT%) 87.4 % 39.0-69.0 H IMMATURE GRANULOCYTE % (test code = IG%) 0.9 % 0.0-5.0 N LYMPHOCYTE % (test code = LY%) 7.8 % 25.0-55.0 L MONOCYTE % (test code = MO%) 2.5 % 0.0-10.0 N EOSINOPHIL % (test code = EO%) 1.3 % 0.0-5.0 N BASOPHIL % (test code = BA%) 0.1 % 0.0-1.0 N NUCLEATED RBC % (test code = NRBC%) 0.0 % 0-0 N NEUTROPHIL # (test code = NT#) 10.13 K/mm3 1.8-7.7 H IMMATURE GRANULOCYTE # (test code = IG#) 0.11 x10 3/uL 0-0.03 H LYMPHOCYTE # (test code = LY#) 0.91 K/mm3 1.0-5.0 L MONOCYTE # (test code = MO#) 0.29 K/mm3 0-0.8 N EOSINOPHIL # (test code = EO#) 0.15 K/mm3 0.0-0.5 N BASOPHIL # (test code = BA#) 0.01 K/mm3 0.0-0.2 N NUCLEATED RBC # (test code = NRBC#) 0.00 K/mm3 0.0-0.1 N MANUAL DIFF REQUIRED (test code = MDIFF) NO, ONLY SCAN NEEDED DIFFERENTIAL [id number] 07:20:00* Test Item Value Reference Range Interpretation Comments STAIN ACCEPTABILITY (test code = STN ACCEPTABLE) MORPHOLOGY COMMENT (test code = MOC) PLATELET ESTIMATE (test code = PLTEST) PLATELET MORPHOLOGY (test code = PLTMORPH) CBC W/AUTO [id number] 07:20:00* Test Item Value Reference Range Interpretation Comments WHITE BLOOD CELL (test code = WBC) 11.6 K/mm3 4.5-12.5 N RED BLOOD CELL (test code = RBC) 3.34 mill/mm3 3.7-5.2 L HEMOGLOBIN (test code = HGB) 9.8 gram/dL 11.5-15.5 L RESULT VERIFIED BY REPEAT ANALYSIS HEMATOCRIT (test code = HCT) 28.4 % 36.0-46.0 L MEAN CELL VOLUME (test code = MCV) 85.0 fL 80-98 N MEAN CELL HGB (test code = MCH) 29.3 picogram 27.0-33.0 N MEAN CELL HGB CONCETRATION (test code = MCHC) 34.5 gram/dL 33.0-36. 0 N RED CELL DISTRIBUTION WIDTH (test code = RDW) 15.4 % 11.6-16. 2 N RED CELL DISTRIBUTION WIDTH SD (test code = RDW-SD) 46.8 fL 37 .0-51.0 N PLATELET COUNT (test code = PLT) 69 K/mm3 150-450 L MEAN PLATELET VOLUME (test code = MPV) 13.6 fL 6.7-11.0 H NEUTROPHIL % (test code = NT%) 87.4 % 39.0-69.0 H IMMATURE GRANULOCYTE % (test code = IG%) 0.9 % 0.0-5.0 N LYMPHOCYTE % (test code = LY%) 7.8 % 25.0-55.0 L MONOCYTE % (test code = MO%) 2.5 % 0.0-10.0 N EOSINOPHIL % (test code = EO%) 1.3 % 0.0-5.0 N BASOPHIL % (test code = BA%) 0.1 % 0.0-1.0 N NUCLEATED RBC % (test code = NRBC%) 0.0 % 0-0 N NEUTROPHIL # (test code = NT#) 10.13 K/mm3 1.8-7.7 H IMMATURE GRANULOCYTE # (test code = IG#) 0.11 x10 3/uL 0-0.03 H LYMPHOCYTE # (test code = LY#) 0.91 K/mm3 1.0-5.0 L MONOCYTE # (test code = MO#) 0.29 K/mm3 0-0.8 N EOSINOPHIL # (test code = EO#) 0.15 K/mm3 0.0-0.5 N BASOPHIL # (test code = BA#) 0.01 K/mm3 0.0-0.2 N NUCLEATED RBC # (test code = NRBC#) 0.00 K/mm3 0.0-0.1 N MANUAL DIFF REQUIRED (test code = MDIFF) NO, ONLY SCAN NEEDED DIFFERENTIAL [id number] 07:20:00* Test Item Value Reference Range Interpretation Comments STAIN ACCEPTABILITY (test code = STN ACCEPTABLE) CABOT RINGS (test code = CAB) MORPHOLOGY COMMENT (test code = MOC) PLATELET ESTIMATE (test code = PLTEST) PLATELET MORPHOLOGY (test code = PLTMORPH) BASIC METABOLIC [id number] 07:03:00* Test Item Value Reference Range Interpretation Comments SODIUM (test code = NA) 141 mmol/L 136-145 N POTASSIUM (test code = K) 3.3 mmol/L 3.5-5.1 L CHLORIDE (test code = CL) 108.0 mmol/L 98-107 H CARBON DIOXIDE (test code = CO2) 22.0 mmol/L 21-32 N ANION GAP (test code = GAP) 14.3 10-20 N GLUCOSE (test code = GLU) 72 mg/dL 74-106 L BLOOD UREA NITROGEN (test code = BUN) 15 mg/dL 7-18 N GLOMERULAR FILTRATION RATE (test code = GFR) 55 mL/min >=60 Estimated GFR by using Modified MDRD formula.Chronic kidney disease is defined as either kidney damageor GFR <60 mL/min/1.73 m2 for >3 months. CREATININE (test code = CREAT) 1.00 mg/dL 0.55-1.02 N Note change in reference range due to change in reagent. BUN/CREATININE RATIO (test code = BUN/CREA) 15.0 10-20 N CALCIUM (test code = CA) 7.7 mg/dL 8.5-10.1 L [id number] 07:03:00* Test Item Value Reference Range Interpretation Comments PHOSPHORUS (test code = PHOS) 1.8 mg/dL 2.5-4.9 L [id number] 07:03:00* Test Item Value Reference Range Interpretation Comments MAGNESIUM (test code = MAG) 1.8 mg/dL 1.8-2.4 N BASIC METABOLIC [id number] 06:56:00* Test Item Value Reference Range Interpretation Comments SODIUM (test code = NA) 141 mmol/L 136-145 N POTASSIUM (test code = K) 3.3 mmol/L 3.5-5.1 L CHLORIDE (test code = CL) 108.0 mmol/L 98-107 H CARBON DIOXIDE (test code = CO2) mmol/L 21-32 ANION GAP (test code = GAP) 10-20 GLUCOSE (test code = GLU) mg/dL 74-106 BLOOD UREA NITROGEN (test code = BUN) mg/dL 7-18 GLOMERULAR FILTRATION RATE (test code = GFR) mL/min >=60 CREATININE (test code = CREAT) mg/dL 0.55-1.02 BUN/CREATININE RATIO (test code = BUN/CREA) 10-20 CALCIUM (test code = CA) mg/dL 8.5-10.1 [id number] 06:56:00* Test Item Value Reference Range Interpretation Comments PHOSPHORUS (test code = PHOS) mg/dL 2.5-4.9 [id number] 06:56:00* Test Item Value Reference Range Interpretation Comments MAGNESIUM (test code = MAG) mg/dL 1.8-2.4 BASIC METABOLIC [id number] 13:59:00* Test Item Value Reference Range Interpretation Comments SODIUM (test code = NA) 141 mmol/L 136-145 N POTASSIUM (test code = K) 3.1 mmol/L 3.5-5.1 L CHLORIDE (test code = CL) 107.0 mmol/L 98-107 N CARBON DIOXIDE (test code = CO2) 22.0 mmol/L 21-32 N ANION GAP (test code = GAP) 15.1 10-20 N GLUCOSE (test code = GLU) 103 mg/dL 74-106 N BLOOD UREA NITROGEN (test code = BUN) 18 mg/dL 7-18 N GLOMERULAR FILTRATION RATE (test code = GFR) 55 mL/min >=60 Estimated GFR by using Modified MDRD formula.Chronic kidney disease is defined as either kidney damageor GFR <60 mL/min/1.73 m2 for >3 months. CREATININE (test code = CREAT) 1.00 mg/dL 0.55-1.02 N Note change in reference range due to change in reagent. BUN/CREATININE RATIO (test code = BUN/CREA) 18.0 10-20 N CALCIUM (test code = CA) 7.5 mg/dL 8.5-10.1 L [id number] 13:59:00* Test Item Value Reference Range Interpretation Comments PHOSPHORUS (test code = PHOS) 2.8 mg/dL 2.5-4.9 N [id number] 13:59:00* Test Item Value Reference Range Interpretation Comments MAGNESIUM (test code = MAG) 2.5 mg/dL 1.8-2.4 H BASIC METABOLIC [id number] 13:56:00* Test Item Value Reference Range Interpretation Comments SODIUM (test code = NA) 141 mmol/L 136-145 N POTASSIUM (test code = K) 3.1 mmol/L 3.5-5.1 L CHLORIDE (test code = CL) 107.0 mmol/L 98-107 N CARBON DIOXIDE (test code = CO2) mmol/L 21-32 ANION GAP (test code = GAP) 10-20 GLUCOSE (test code = GLU) mg/dL 74-106 BLOOD UREA NITROGEN (test code = BUN) mg/dL 7-18 GLOMERULAR FILTRATION RATE (test code = GFR) mL/min >=60 CREATININE (test code = CREAT) mg/dL 0.55-1.02 BUN/CREATININE RATIO (test code = BUN/CREA) 10-20 CALCIUM (test code = CA) mg/dL 8.5-10.1 [id number] 13:56:00* Test Item Value Reference Range Interpretation Comments PHOSPHORUS (test code = PHOS) mg/dL 2.5-4.9 [id number] 13:56:00* Test Item Value Reference Range Interpretation Comments MAGNESIUM (test code = MAG) mg/dL 1.8-2.4 CBC W/AUTO [id number] 12:42:00* Test Item Value Reference Range Interpretation Comments WHITE BLOOD CELL (test code = WBC) 10.3 K/mm3 4.5-12.5 N RED BLOOD CELL (test code = RBC) 2.44 mill/mm3 3.7-5.2 L HEMOGLOBIN (test code = HGB) 7.2 gram/dL 11.5-15.5 L RESULT VERIFIED BY REPEAT ANALYSIS HEMATOCRIT (test code = HCT) 21.6 % 36.0-46.0 LL Results called to [id number] by JEVON 12/09/18 0727Critical results verified and read back by Nurse? Y MEAN CELL VOLUME (test code = MCV) 88.5 fL 80-98 N MEAN CELL HGB (test code = MCH) 29.5 picogram 27.0-33.0 N MEAN CELL HGB CONCETRATION (test code = MCHC) 33.3 gram/dL 33.0-36. 0 N RED CELL DISTRIBUTION WIDTH (test code = RDW) 15.2 % 11.6-16. 2 N RED CELL DISTRIBUTION WIDTH SD (test code = RDW-SD) 47.8 fL 37 .0-51.0 N PLATELET COUNT (test code = PLT) 85 K/mm3 150-450 L MEAN PLATELET VOLUME (test code = MPV) 12.9 fL 6.7-11.0 H NEUTROPHIL % (test code = NT%) 87.5 % 39.0-69.0 H IMMATURE GRANULOCYTE % (test code = IG%) 0.6 % 0.0-5.0 N LYMPHOCYTE % (test code = LY%) 8.5 % 25.0-55.0 L MONOCYTE % (test code = MO%) 1.9 % 0.0-10.0 N EOSINOPHIL % (test code = EO%) 1.4 % 0.0-5.0 N BASOPHIL % (test code = BA%) 0.1 % 0.0-1.0 N NUCLEATED RBC % (test code = NRBC%) 0.0 % 0-0 N NEUTROPHIL # (test code = NT#) 9.03 K/mm3 1.8-7.7 H IMMATURE GRANULOCYTE # (test code = IG#) 0.06 x10 3/uL 0-0.03 H LYMPHOCYTE # (test code = LY#) 0.88 K/mm3 1.0-5.0 L MONOCYTE # (test code = MO#) 0.20 K/mm3 0-0.8 N EOSINOPHIL # (test code = EO#) 0.14 K/mm3 0.0-0.5 N BASOPHIL # (test code = BA#) 0.01 K/mm3 0.0-0.2 N NUCLEATED RBC # (test code = NRBC#) 0.00 K/mm3 0.0-0.1 N MANUAL DIFF REQUIRED (test code = MDIFF) NO, ONLY SCAN NEEDED DIFFERENTIAL [id number] 12:42:00* Test Item Value Reference Range Interpretation Comments STAIN ACCEPTABILITY (test code = STN ACCEPTABLE) STAIN ACCEPTABLE ANISOCYTOSIS (test code = ANISO) 1+ PLATELET ESTIMATE (test code = PLTEST) DECREASED PLATELET MORPHOLOGY (test code = PLTMORPH) SIZE VARIABLE ARTERIAL BLOOD [id number] 09:17:00* Test Item Value Reference Range Interpretation Comments ARTERIAL BLOOD GAS PH (test code = PHA) 7.43 7.35-7.45 N ARTERIAL BLOOD GAS PCO2 (test code = PCO2A) 33.0 mm Hg 35-45 L ARTERIAL BLOOD GAS PO2 (test code = PO2A) 82.8 mmHg 80-100 N BICARBONATE TOTAL HCO3 (test code = HCO3) 21.4 mmol/L 23.0-27.0 L BASE EXCESS (test code = SHASHA) -2.5 mmol/L -3.0-5.0 N ABG O2 SATURATION (test code = SATA) 94.7 % 90.0-98.0 N ABG TYPE (test code = TYPEA) Arterial FIO2 (test code = FIO2A) 35.0 ABG SITE (test code = SITEA) Engraved [employer] HEMATOCRIT (test code = HCT/ABG) 24 % 35-47 L TOTAL HGB (test code = THB) 8.2 gram/dL 11.5-15.5 L HGB O2 SAT (test code = HBOSAT) 93.8 % 94.00-98.00 L CARBOXYHEMOGLOBIN (test code = HOHGBT) 0.3 %totalHg 0.5-1.5 LL Results called to and read back by Philip 09:17 - 12/09/2018; by RISSA METHEMOGLOBIN (test code = METHGB) 0.6 % 0.0-1.50 N O2 CONTENT (test code = O2CT) 11.0 % vol 18.0-22.0 L BASIC METABOLIC [id number] 07:55:00* Test Item Value Reference Range Interpretation Comments SODIUM (test code = NA) 142 mmol/L 136-145 N POTASSIUM (test code = K) 2.0 mmol/L 3.5-5.1 LL Re sults called to [id number] by CORBYLDB 12/09/18 0753Critical results verified and read back by Nurse? Y CHLORIDE (test code = CL) 106.0 mmol/L 98-107 N CARBON DIOXIDE (test code = CO2) 23.0 mmol/L 21-32 N ANION GAP (test code = GAP) 15.0 10-20 N GLUCOSE (test code = GLU) 99 mg/dL 74-106 N BLOOD UREA NITROGEN (test code = BUN) 19 mg/dL 7-18 H GLOMERULAR FILTRATION RATE (test code = GFR) > 60 mL/min >=60 Estimated GFR by using Modified MDRD formula.Chronic kidney disease is defined as either kidney damageor GFR <60 mL/min/1.73 m2 for >3 months. CREATININE (test code = CREAT) 0.80 mg/dL 0.55-1.02 N Note change in reference range due to change in reagent. BUN/CREATININE RATIO (test code = BUN/CREA) 23.8 10-20 H CALCIUM (test code = CA) 7.4 mg/dL 8.5-10.1 L [id number] 07:55:00* Test Item Value Reference Range Interpretation Comments PHOSPHORUS (test code = PHOS) 1.9 mg/dL 2.5-4.9 L [id number] 07:55:00* Test Item Value Reference Range Interpretation Comments MAGNESIUM (test code = MAG) 1.6 mg/dL 1.8-2.4 L CALCIUM [id number] 07:55:00* Test Item Value Reference Range Interpretation Comments CALCIUM IONIZED (test code = ERICH) 1.14 mmol/L 1.12-1.32 N CBC W/AUTO [id number] 07:29:00* Test Item Value Reference Range Interpretation Comments WHITE BLOOD CELL (test code = WBC) 10.3 K/mm3 4.5-12.5 N RED BLOOD CELL (test code = RBC) 2.44 mill/mm3 3.7-5.2 L HEMOGLOBIN (test code = HGB) 7.2 gram/dL 11.5-15.5 L RESULT VERIFIED BY REPEAT ANALYSIS HEMATOCRIT (test code = HCT) 21.6 % 36.0-46.0 LL Results called to [id number] by JEVON 12/09/18 0727Critical results verified and read back by Nurse? Y MEAN CELL VOLUME (test code = MCV) 88.5 fL 80-98 N MEAN CELL HGB (test code = MCH) 29.5 picogram 27.0-33.0 N MEAN CELL HGB CONCETRATION (test code = MCHC) 33.3 gram/dL 33.0-36. 0 N RED CELL DISTRIBUTION WIDTH (test code = RDW) 15.2 % 11.6-16. 2 N RED CELL DISTRIBUTION WIDTH SD (test code = RDW-SD) 47.8 fL 37 .0-51.0 N PLATELET COUNT (test code = PLT) 85 K/mm3 150-450 L MEAN PLATELET VOLUME (test code = MPV) 12.9 fL 6.7-11.0 H NEUTROPHIL % (test code = NT%) 87.5 % 39.0-69.0 H IMMATURE GRANULOCYTE % (test code = IG%) 0.6 % 0.0-5.0 N LYMPHOCYTE % (test code = LY%) 8.5 % 25.0-55.0 L MONOCYTE % (test code = MO%) 1.9 % 0.0-10.0 N EOSINOPHIL % (test code = EO%) 1.4 % 0.0-5.0 N BASOPHIL % (test code = BA%) 0.1 % 0.0-1.0 N NUCLEATED RBC % (test code = NRBC%) 0.0 % 0-0 N NEUTROPHIL # (test code = NT#) 9.03 K/mm3 1.8-7.7 H IMMATURE GRANULOCYTE # (test code = IG#) 0.06 x10 3/uL 0-0.03 H LYMPHOCYTE # (test code = LY#) 0.88 K/mm3 1.0-5.0 L MONOCYTE # (test code = MO#) 0.20 K/mm3 0-0.8 N EOSINOPHIL # (test code = EO#) 0.14 K/mm3 0.0-0.5 N BASOPHIL # (test code = BA#) 0.01 K/mm3 0.0-0.2 N NUCLEATED RBC # (test code = NRBC#) 0.00 K/mm3 0.0-0.1 N MANUAL DIFF REQUIRED (test code = MDIFF) NO, ONLY SCAN NEEDED DIFFERENTIAL [id number] 07:29:00* Test Item Value Reference Range Interpretation Comments STAIN ACCEPTABILITY (test code = STN ACCEPTABLE) CABOT RINGS (test code = CAB) MORPHOLOGY COMMENT (test code = MOC) PLATELET ESTIMATE (test code = PLTEST) PLATELET MORPHOLOGY (test code = PLTMORPH) CBC W/AUTO [id number] 07:29:00* Test Item Value Reference Range Interpretation Comments WHITE BLOOD CELL (test code = WBC) 10.3 K/mm3 4.5-12.5 N RED BLOOD CELL (test code = RBC) 2.44 mill/mm3 3.7-5.2 L HEMOGLOBIN (test code = HGB) 7.2 gram/dL 11.5-15.5 L RESULT VERIFIED BY REPEAT ANALYSIS HEMATOCRIT (test code = HCT) 21.6 % 36.0-46.0 LL Results called to [id number] by MasonLABSARAH 12/09/18 0727Critical results verified and read back by Nurse? Y MEAN CELL VOLUME (test code = MCV) 88.5 fL 80-98 N MEAN CELL HGB (test code = MCH) 29.5 picogram 27.0-33.0 N MEAN CELL HGB CONCETRATION (test code = MCHC) 33.3 gram/dL 33.0-36. 0 N RED CELL DISTRIBUTION WIDTH (test code = RDW) 15.2 % 11.6-16. 2 N RED CELL DISTRIBUTION WIDTH SD (test code = RDW-SD) 47.8 fL 37 .0-51.0 N PLATELET COUNT (test code = PLT) 85 K/mm3 150-450 L MEAN PLATELET VOLUME (test code = MPV) 12.9 fL 6.7-11.0 H NEUTROPHIL % (test code = NT%) 87.5 % 39.0-69.0 H IMMATURE GRANULOCYTE % (test code = IG%) 0.6 % 0.0-5.0 N LYMPHOCYTE % (test code = LY%) 8.5 % 25.0-55.0 L MONOCYTE % (test code = MO%) 1.9 % 0.0-10.0 N EOSINOPHIL % (test code = EO%) 1.4 % 0.0-5.0 N BASOPHIL % (test code = BA%) 0.1 % 0.0-1.0 N NUCLEATED RBC % (test code = NRBC%) 0.0 % 0-0 N NEUTROPHIL # (test code = NT#) 9.03 K/mm3 1.8-7.7 H IMMATURE GRANULOCYTE # (test code = IG#) 0.06 x10 3/uL 0-0.03 H LYMPHOCYTE # (test code = LY#) 0.88 K/mm3 1.0-5.0 L MONOCYTE # (test code = MO#) 0.20 K/mm3 0-0.8 N EOSINOPHIL # (test code = EO#) 0.14 K/mm3 0.0-0.5 N BASOPHIL # (test code = BA#) 0.01 K/mm3 0.0-0.2 N NUCLEATED RBC # (test code = NRBC#) 0.00 K/mm3 0.0-0.1 N MANUAL DIFF REQUIRED (test code = MDIFF) NO, ONLY SCAN NEEDED DIFFERENTIAL [id number] 07:29:00* Test Item Value Reference Range Interpretation Comments STAIN ACCEPTABILITY (test code = STN ACCEPTABLE) CABOT RINGS (test code = CAB) MORPHOLOGY COMMENT (test code = MOC) PLATELET ESTIMATE (test code = PLTEST) PLATELET MORPHOLOGY (test code = PLTMORPH) CBC W/AUTO [id number] 07:29:00* Test Item Value Reference Range Interpretation Comments WHITE BLOOD CELL (test code = WBC) 10.3 K/mm3 4.5-12.5 N RED BLOOD CELL (test code = RBC) 2.44 mill/mm3 3.7-5.2 L HEMOGLOBIN (test code = HGB) 7.2 gram/dL 11.5-15.5 L RESULT VERIFIED BY REPEAT ANALYSIS HEMATOCRIT (test code = HCT) 21.6 % 36.0-46.0 LL Results called to [id number] by VFayeLABSARAH 12/09/18 0727Critical results verified and read back by Nurse? Y MEAN CELL VOLUME (test code = MCV) 88.5 fL 80-98 N MEAN CELL HGB (test code = MCH) 29.5 picogram 27.0-33.0 N MEAN CELL HGB CONCETRATION (test code = MCHC) 33.3 gram/dL 33.0-36. 0 N RED CELL DISTRIBUTION WIDTH (test code = RDW) 15.2 % 11.6-16. 2 N RED CELL DISTRIBUTION WIDTH SD (test code = RDW-SD) 47.8 fL 37 .0-51.0 N PLATELET COUNT (test code = PLT) 85 K/mm3 150-450 L MEAN PLATELET VOLUME (test code = MPV) 12.9 fL 6.7-11.0 H NEUTROPHIL % (test code = NT%) 87.5 % 39.0-69.0 H IMMATURE GRANULOCYTE % (test code = IG%) 0.6 % 0.0-5.0 N LYMPHOCYTE % (test code = LY%) 8.5 % 25.0-55.0 L MONOCYTE % (test code = MO%) 1.9 % 0.0-10.0 N EOSINOPHIL % (test code = EO%) 1.4 % 0.0-5.0 N BASOPHIL % (test code = BA%) 0.1 % 0.0-1.0 N NUCLEATED RBC % (test code = NRBC%) 0.0 % 0-0 N NEUTROPHIL # (test code = NT#) 9.03 K/mm3 1.8-7.7 H IMMATURE GRANULOCYTE # (test code = IG#) 0.06 x10 3/uL 0-0.03 H LYMPHOCYTE # (test code = LY#) 0.88 K/mm3 1.0-5.0 L MONOCYTE # (test code = MO#) 0.20 K/mm3 0-0.8 N EOSINOPHIL # (test code = EO#) 0.14 K/mm3 0.0-0.5 N BASOPHIL # (test code = BA#) 0.01 K/mm3 0.0-0.2 N NUCLEATED RBC # (test code = NRBC#) 0.00 K/mm3 0.0-0.1 N MANUAL DIFF REQUIRED (test code = MDIFF) NO, ONLY SCAN NEEDED DIFFERENTIAL [id number] 07:29:00* Test Item Value Reference Range Interpretation Comments STAIN ACCEPTABILITY (test code = STN ACCEPTABLE) MORPHOLOGY COMMENT (test code = MOC) PLATELET ESTIMATE (test code = PLTEST) PLATELET MORPHOLOGY (test code = PLTMORPH) CBC W/AUTO [id number] 07:29:00* Test Item Value Reference Range Interpretation Comments WHITE BLOOD CELL (test code = WBC) 10.3 K/mm3 4.5-12.5 N RED BLOOD CELL (test code = RBC) 2.44 mill/mm3 3.7-5.2 L HEMOGLOBIN (test code = HGB) 7.2 gram/dL 11.5-15.5 L RESULT VERIFIED BY REPEAT ANALYSIS HEMATOCRIT (test code = HCT) 21.6 % 36.0-46.0 LL Results called to [id number] by JEVON 12/09/18 0727Critical results verified and read back by Nurse? Y MEAN CELL VOLUME (test code = MCV) 88.5 fL 80-98 N MEAN CELL HGB (test code = MCH) 29.5 picogram 27.0-33.0 N MEAN CELL HGB CONCETRATION (test code = MCHC) 33.3 gram/dL 33.0-36. 0 N RED CELL DISTRIBUTION WIDTH (test code = RDW) 15.2 % 11.6-16. 2 N RED CELL DISTRIBUTION WIDTH SD (test code = RDW-SD) 47.8 fL 37 .0-51.0 N PLATELET COUNT (test code = PLT) 85 K/mm3 150-450 L MEAN PLATELET VOLUME (test code = MPV) 12.9 fL 6.7-11.0 H NEUTROPHIL % (test code = NT%) 87.5 % 39.0-69.0 H IMMATURE GRANULOCYTE % (test code = IG%) 0.6 % 0.0-5.0 N LYMPHOCYTE % (test code = LY%) 8.5 % 25.0-55.0 L MONOCYTE % (test code = MO%) 1.9 % 0.0-10.0 N EOSINOPHIL % (test code = EO%) 1.4 % 0.0-5.0 N BASOPHIL % (test code = BA%) 0.1 % 0.0-1.0 N NUCLEATED RBC % (test code = NRBC%) 0.0 % 0-0 N NEUTROPHIL # (test code = NT#) 9.03 K/mm3 1.8-7.7 H IMMATURE GRANULOCYTE # (test code = IG#) 0.06 x10 3/uL 0-0.03 H LYMPHOCYTE # (test code = LY#) 0.88 K/mm3 1.0-5.0 L MONOCYTE # (test code = MO#) 0.20 K/mm3 0-0.8 N EOSINOPHIL # (test code = EO#) 0.14 K/mm3 0.0-0.5 N BASOPHIL # (test code = BA#) 0.01 K/mm3 0.0-0.2 N NUCLEATED RBC # (test code = NRBC#) 0.00 K/mm3 0.0-0.1 N MANUAL DIFF REQUIRED (test code = MDIFF) NO, ONLY SCAN NEEDED DIFFERENTIAL [id number] 07:29:00* Test Item Value Reference Range Interpretation Comments STAIN ACCEPTABILITY (test code = STN ACCEPTABLE) CABOT RINGS (test code = CAB) MORPHOLOGY COMMENT (test code = MOC) PLATELET ESTIMATE (test code = PLTEST) PLATELET MORPHOLOGY (test code = PLTMORPH) BASIC METABOLIC [id number] 07:27:00* Test Item Value Reference Range Interpretation Comments SODIUM (test code = NA) mmol/L 136-145 POTASSIUM (test code = K) mmol/L 3.5-5.1 CHLORIDE (test code = CL) mmol/L 98-107 CARBON DIOXIDE (test code = CO2) mmol/L 21-32 ANION GAP (test code = GAP) 10-20 GLUCOSE (test code = GLU) mg/dL 74-106 BLOOD UREA NITROGEN (test code = BUN) mg/dL 7-18 GLOMERULAR FILTRATION RATE (test code = GFR) mL/min >=60 CREATININE (test code = CREAT) mg/dL 0.55-1.02 BUN/CREATININE RATIO (test code = BUN/CREA) 10-20 CALCIUM (test code = CA) mg/dL 8.5-10.1 [id number] 07:27:00* Test Item Value Reference Range Interpretation Comments PHOSPHORUS (test code = PHOS) mg/dL 2.5-4.9 [id number] 07:27:00* Test Item Value Reference Range Interpretation Comments MAGNESIUM (test code = MAG) mg/dL 1.8-2.4 CALCIUM [id number] 07:27:00* Test Item Value Reference Range Interpretation Comments CALCIUM IONIZED (test code = ERICH) 1.14 mmol/L 1.12-1.32 N [id number] 07:21:00* Test Item Value Reference Range Interpretation Comments TROPONIN-T (test code = TROPT) 0.024 ng/mL <0.011 HH Verified by repeat analysisPerformed At: [facility] [address] [place], [place] [address]Pgcuwijz Sanjai MD Ph:[phone] performed at: [facility] [address] [place] [address] - XR CHEST 1 [id number] 07:10:00 FAX: Alecia Girard NP [phone] [place]: St: DIS FAX: Ilan Holt MD Name: MOJGAN CUMMINGS [facility] : 1950 Age/S: 68/F [address] [facility] Unit #: [id number] Loc: SHIREENAriana Oron[place]LU[place] [address] Phys: Alecia Girard NP Acct: [id number] Dis Date: Status: DIS IN PHONE #: [phone] Exam Date: 12/09/2018 0454 FAX #: [phone] Reason: sob EXAMS: CPT CODE: [id number] XR CHEST 1 V [id number] REASON FOR EXAM: sob EXAM ORDER DATE: 12/09/2018 5:00 AM Ordering Crispin: Alecia Girard NP PROCEDURE: - XR CHEST 1 V COMPARISON: 12/08/2018 FINDINGS: Portable AP frontal view of the chest obtained at 4:09 AM shows diffuse airspace opacities. The heart size is minimally enlarged. Pulmonary vasculatures are minimally congested. Stable appearance of the right subclavian central line and tracheostomy tube. IMPRESSION: Interval worsening of the congestive heart failure with pulmonary edema and atelectasis of the bases more pronounced on the right with small bilateral pleural effusions at 07 10 Reported and signed by: Brayan Toro M.D. CC: Alecia Girard PRODUCTION CLERK; Ilan Stein Technologist: BROOKE BRAY RT(R); Mary Harris Trnscrd Date/Time/By: 12/09 (0710) : By: Rodrigo Orig Print D/T: S: 12/09/2018 (0703) PAGE 1 Signed Report - XR CHEST 1 [id number] 07:10:00 FAX: Alecia Girard NP [phone] [place]: St: ADM FAX: Ilan Holt MD Name: MOJGAN CUMMINGS [facility] : 1950 Age/S: 68/F [address] [facility] Unit #: [id number] Loc: [address] [address] Phys: Alecia Girard NP Acct: [id number] Dis Date: Status: ADM IN PHONE #: [phone] Exam Date: 12/09/2018 0455 FAX #: [phone] Reason: sob EXAMS: CPT CODE: [id number] XR CHEST 1 V [id number] REASON FOR EXAM: sob EXAM ORDER DATE: 12/09 5:00 AM Ordering Crispin: Alecia Girard NP PROCE DURE: - XR CHEST 1 V COMPARISON: 12/08/2018 FINDINGS : Portable AP frontal view of the chest obtained at 4:09 AM shows diffuse airspace opacities. The heart size is minimally enlarged. Pulmonary vascu latures are minimally congested. Stable appearance of the right subclavia n central line and tracheostomy tube. IMPRESSION: Interval worse yael of the congestive heart failure with pulmonary edema and atelectasi s of the bases more pronounced on the right with small bilateral pleural effusions at 07 10 Reported and signed by: Brayan Toro M.D. CC: Alecia Girard NP; Ilan Stein Technologist: BROOKE BRAY, RT(R); Mary Harris Trnscrd Date/Time/By: 12/09 (0710) : By: Rodrigo Orig Print D/T: S: 12/09/2018 (0713) PAGE 1 Signed Report - XR CHEST 1 [id number] 07:10:00 FAX: Alecia Girard NP [phone] [place]: St: DIS FAX: Ilan Holt MD Name: MOJGAN CUMMINGS [facility] : 1950 Age/S: 68/F [address] [facility] Unit #: [id number] Loc: [place] [address] Phys: Alecia Girard NP Acct: [id number] Dis Date: Status: DIS IN PHONE #: [phone] Exam Date: 12/09/2018 0455 FAX #: [phone] Reason: sob EXAMS: CPT CODE: [id number] XR CHEST 1 V [id number] REASON FOR EXAM: sob EXAM ORDER DATE: 12/09 5:00 AM Ordering Crispin: WILMER Roe DURE: - XR CHEST 1 V COMPARISON: 12/08/2018 FINDINGS : Portable AP frontal view of the chest obtained at 4:09 AM shows diffuse airspace opacities. The heart size is minimally enlarged. Pulmonary vascu latures are minimally congested. Stable appearance of the right subclavia n central line and tracheostomy tube. IMPRESSION: Interval worse yael of the congestive heart failure with pulmonary edema and atelectasi s of the bases more pronounced on the right with small bilateral pleural effusions at 07 10 Reported and signed by: Brayan Toro M.D. CC: Alecia Girard NP; Ilan Stein Technologist: BROOKE BRAY, RT(R); Mary Harris Trnscrd Date/Time/By: 12/09 (0710) : By: GordoL Orig Print D/T: S: 12/09/2018 (0713) PAGE 1 Signed Report [id number] 07:07:00* Test Item Value Reference Range Interpretation Comments TROPONIN-T (test code = TROPT) 0.024 ng/mL Test [facility] at: [facility] [address] [place] [address] BASIC METABOLIC [id number] 17:09:00* Test Item Value Reference Range Interpretation Comments SODIUM (test code = NA) 139 mmol/L 136-145 N POTASSIUM (test code = K) 2.8 mmol/L 3.5-5.1 LL Re sults called to [id number] by [email or web address] 12/08/18 1709Critical results verified and read back by Nurse? Y CHLORIDE (test code = CL) 106.0 mmol/L 98-107 N CARBON DIOXIDE (test code = CO2) 23.0 mmol/L 21-32 N ANION GAP (test code = GAP) 12.8 10-20 N GLUCOSE (test code = GLU) 108 mg/dL 74-106 H BLOOD UREA NITROGEN (test code = BUN) 23 mg/dL 7-18 H GLOMERULAR FILTRATION RATE (test code = GFR) > 60 mL/min >=60 Estimated GFR by using Modified MDRD formula.Chronic kidney disease is defined as either kidney damageor GFR <60 mL/min/1.73 m2 for >3 months. CREATININE (test code = CREAT) 0.80 mg/dL 0.55-1.02 N Note change in reference range due to change in reagent. BUN/CREATININE RATIO (test code = BUN/CREA) 28.8 10-20 H CALCIUM (test code = CA) 7.4 mg/dL 8.5-10.1 L [id number] 17:09:00* Test Item Value Reference Range Interpretation Comments PHOSPHORUS (test code = PHOS) 2.9 mg/dL 2.5-4.9 N [id number] 17:09:00* Test Item Value Reference Range Interpretation Comments MAGNESIUM (test code = MAG) 1.8 mg/dL 1.8-2.4 N CALCIUM [id number] 17:09:00* Test Item Value Reference Range Interpretation Comments CALCIUM IONIZED (test code = ERICH) 1.09 mmol/L 1.12-1.32 L BASIC METABOLIC [id number] 16:34:00* Test Item Value Reference Range Interpretation Comments SODIUM (test code = NA) mmol/L 136-145 POTASSIUM (test code = K) mmol/L 3.5-5.1 CHLORIDE (test code = CL) mmol/L 98-107 CARBON DIOXIDE (test code = CO2) mmol/L 21-32 ANION GAP (test code = GAP) 10-20 GLUCOSE (test code = GLU) mg/dL 74-106 BLOOD UREA NITROGEN (test code = BUN) mg/dL 7-18 GLOMERULAR FILTRATION RATE (test code = GFR) mL/min >=60 CREATININE (test code = CREAT) mg/dL 0.55-1.02 BUN/CREATININE RATIO (test code = BUN/CREA) 10-20 CALCIUM (test code = CA) mg/dL 8.5-10.1 [id number] 16:34:00* Test Item Value Reference Range Interpretation Comments PHOSPHORUS (test code = PHOS) mg/dL 2.5-4.9 [id number] 16:34:00* Test Item Value Reference Range Interpretation Comments MAGNESIUM (test code = MAG) mg/dL 1.8-2.4 CALCIUM [id number] 16:34:00* Test Item Value Reference Range Interpretation Comments CALCIUM IONIZED (test code = ERICH) 1.09 mmol/L 1.12-1.32 L CBC W/O [id number] 16:03:00* Test Item Value Reference Range Interpretation Comments WHITE BLOOD CELL (test code = WBC) 11.8 K/mm3 4.5-12.5 N RED BLOOD CELL (test code = RBC) 2.59 mill/mm3 3.7-5.2 L HEMOGLOBIN (test code = HGB) 7.6 gram/dL 11.5-15.5 L HEMATOCRIT (test code = HCT) 22.9 % 36.0-46.0 L MEAN CELL VOLUME (test code = MCV) 88.4 fL 80-98 N MEAN CELL HGB (test code = MCH) 29.3 picogram 27.0-33.0 N MEAN CELL HGB CONCETRATION (test code = MCHC) 33.2 gram/dL 33.0-36. 0 N RED CELL DISTRIBUTION WIDTH (test code = RDW) 15.0 % 11.6-16. 2 N PLATELET COUNT (test code = PLT) 105 K/mm3 150-450 L MEAN PLATELET VOLUME (test code = MPV) 13.1 fL 6.7-11.0 H [id number] 10:07:00* Test Item Value Reference Range Interpretation Comments GLYCOSYLATED HEMOGLOBIN (HA1C) (test code = GLYHGB) < 3.5 % HbA1 4. 8-6.0 L ESTIMATED AVERAGE GLUCOSE (test code = EAG) 54 MG/DL CBC W/MANUAL [id number] 07:57:00* Test Item Value Reference Range Interpretation Comments WHITE BLOOD CELL (test code = WBC) 11.8 K/mm3 4.5-12.5 N RED BLOOD CELL (test code = RBC) 2.50 mill/mm3 3.7-5.2 L HEMOGLOBIN (test code = HGB) 7.2 gram/dL 11.5-15.5 L HEMATOCRIT (test code = HCT) 21.6 % 36.0-46.0 LL Results called to [id number] by ARMAND 12/08/18 0656Critical results verified and read back by Nurse? Y MEAN CELL VOLUME (test code = MCV) 86.4 fL 80-98 N MEAN CELL HGB (test code = MCH) 28.8 picogram 27.0-33.0 N MEAN CELL HGB CONCETRATION (test code = MCHC) 33.3 gram/dL 33.0-36. 0 N RED CELL DISTRIBUTION WIDTH (test code = RDW) 14.9 % 11.6-16. 2 N RED CELL DISTRIBUTION WIDTH SD (test code = RDW-SD) 46.5 fL 37 .0-51.0 N PLATELET COUNT (test code = PLT) 124 K/mm3 150-450 L MEAN PLATELET VOLUME (test code = MPV) 12.8 fL 6.7-11.0 H IMMATURE GRANULOCYTE % (test code = IG%) 1.3 % 0.0-5.0 N NUCLEATED RBC % (test code = NRBC%) 0.0 % 0-0 N NEUTROPHIL # (test code = NT#) 10.10 K/mm3 1.8-7.7 H IMMATURE GRANULOCYTE # (test code = IG#) 0.15 x10 3/uL 0-0.03 H LYMPHOCYTE # (test code = LY#) 1.20 K/mm3 1.0-5.0 N MONOCYTE # (test code = MO#) 0.32 K/mm3 0-0.8 N EOSINOPHIL # (test code = EO#) 0.02 K/mm3 0.0-0.5 N BASOPHIL # (test code = BA#) 0.00 K/mm3 0.0-0.2 N NUCLEATED RBC # (test code = NRBC#) 0.00 K/mm3 0.0-0.1 N MANUAL DIFF REQUIRED (test code = MDIFF) YES STAIN ACCEPTABILITY (test code = STN ACCEPTABLE) STAIN ACCEPTABLE TOTAL CELLS COUNTED (test code = TCC) 100 #CELLS SEGMENTED NEUTROPHILS (test code = SEG) 81 % 39-69 H LYMPHOCYTE (test code = LYMPH) 16 % 25-55 L MONOCYTE (test code = MON) 3 % 0-10 N POIKILOCYTOSIS (test code = POIK) 1+ BASOPHILIC STIPPLING (test code = STP) 1+ TARGET CELLS (test code = TGT) 1+ PLATELET ESTIMATE (test code = PLTEST) DECREASED PLATELET MORPHOLOGY (test code = PLTMORPH) SIZE VARIABLE - XR CHEST 1 [id number] 07:31:00 FAX: Ilan Holt MD [place]: B St: DIS FAX: Charo Iraheta MD [phone] Name: MOJGAN CUMMINGS [facility] : 1950 Age/S: 68/F [address] [facility] Unit #: [id number] Loc: [place] [address] Phys: Charo Iraheta MD Acct: [id number] Dis Date: Status: DIS IN PHONE #: [phone] Exam Date: 12/08/2018 0540 FAX #: [phone] Reason: sob EXAMS: CPT CODE: [id number] XR CHEST 1 V [id number] REASON FOR EXAM: sob EXAM ORDER DATE: 12/08/2018 4:00 AM Ordering Crispin: Charo Iraheta MD PROCEDURE: - XR CHEST 1 V COMPARISON: 12/07/2018 FINDINGS: Portable AP frontal view of the chest obtained at 5:44 AM shows clear lungs without evidence of consolidation. There is no evidence of effusion. The heart size is minimally enlarged. Pulmonary vasculatures are minimally congested. Stable appearance of the tracheostomy tube and right subclavian central line. IMPRESSION: No active disease. at 0765 Reported and signed by: Brayan Toro M.D. CC: Ilan Stein; Charo Iraheta MD Technologist: OCTAVIO VASQUEZ JR Trnwyrd Date/Time/By: 12/08/2018 (0731) : By: HarryVTL Orig Print D/T: S: 12/08/2018 (0734) PAGE 1 Signed Report - XR CHEST 1 [id number] 07:31:00 FAX: Ilan Holt MD [place]: B St: ADM FAX: Charo Iraheta MD [phone] Name: MOJGAN CUMMINGS [facility] : 1950 Age/S: 68/F [address] [facility] Unit #: [id number] Loc: [address] [place] [address] Phys: Charo Iraheta MD Acct: [id number] Dis Date: Status: ADM IN PHONE #: [phone] Exam Date: 12/08/2018539 FAX #: [phone] Reason: sob EXAMS: CPT CODE: [id number] XR CHEST 1 V [id number] REASON FOR EXAM: sob EXAM ORDER DATE: 12/08/2018 4:00 AM Ordering rCispin: Charo Iraheta MD PROCEDURE: - XR CHEST 1 V COMPARISON: 12/07/2018 FINDINGS: Portable AP frontal view of the chest obtained at 5:44 AM shows clear lungs without evidence of consolidation. There is no evidence of effusion. The heart size is minimally enlarged. Pulmonary vasculatures are minimally congested. Stable appearance of the tracheostomy tube and right subclavian central line. IMPRESSION: No active disease. at 8201 Reported and signed by: Brayan Toro M.D. CC: Ilan Stein; Charo Iraheta MD Technologist: OCTAVIO VASQUEZ JR Trnscrd Date/Time/By: 12/08/2018 (0797) : By: GordoL Orig Print D/T: S: 12/08/2018 (0766) PAGE 1 Signed Report - XR CHEST 1 [id number] 07:31:00 FAX: Ilan Holt MD [place]: B St: DIS FAX: Charo Iraheta MD [phone] Name: MOJGAN CUMMINGS [facility] : 1950 Age/S: 68/F [address] [facility] Unit #: [id number] Loc: [place] [address] Phys: Charo Iraheta MD Acct: [id number] Dis Date: Status: DIS IN PHONE #: [phone] Exam Date: 12/08/2018 05 FAX #: [phone] Reason: sob EXAMS: CPT CODE: [id number] XR CHEST 1 V 71227 REASON FOR EXAM: sob EXAM ORDER DATE: 12/08/2018 4:00 AM Ordering Crispin: Charo Iraheta MD PROCEDURE: - XR CHEST 1 V COMPARISON: 12/07/2018 FINDINGS: Portable AP frontal view of the chest obtained at 5:44 AM shows clear lungs without evidence of consolidation. There is no evidence of effusion. The heart size is minimally enlarged. Pulmonary vasculatures are minimally congested. Stable appearance of the tracheostomy tube and right subclavian central line. IMPRESSION: No active disease. at 0711 Reported and signed by: Brayan Toro M.D. CC: Ilan Stein; Charo Iraheta MD Technologist: OCTAVIO VASQUEZ JR Trnscrd Date/Time/By: 12/08/2018 (0731) : By: HarryVTL Orig Print D/T: S: 12/08/2018 (0705) PAGE 1 Signed Report - XR ABDOMEN [id number] 07:30:00 FAX: Ilan Holt MD [place]: St: DIS Name: MOJGAN SAUCEDO [facility] : [birth year] Age/S: 68/F [address] [facility] Unit #: [id number] Loc: [place] [address] Phys: Ilan Stein MD Acct: [id number] Dis Date: Status: DIS IN PHONE #: [phone] Exam Date: 12/08/2018 0540 FAX #: [phone] Reason: ileus EXAMS: CPT CODE: [id number] XR ABDOMEN 2V 34235 REASON FOR EXAM: ileus EXAM ORDER DATE: 12/08/2018 7:00 AM Attending [place]: Ilan barrett MD PROCEDURE: - XR ABDOMEN 2V COMPARISON:2018 FINDINGS: 2 views of the abdomen obtained at 5:49 AM. Scatte red fecal material seen in the colon. No evidence of organomegaly or ascit es. No evidence of free air. A PEG tube is identified in the upper stomac h IMPRESSION: Slight interval improvement in the gaseous distent ion of small bowel loops suggestive of ileus at 0730 Reported an d signed by: Brayan Toro M.D. CC: Ilan Stein Technologist: OCTAVIO VASQUEZ JR Trnscrd Date/Time/By: 12/08/2018 (34) : By: Rodrigo Orig Print D/T: S: 12/08/2018 (7862) PAGE 1 Signed Report - XR ABDOMEN [id number] 07:30:00 FAX: Y Ilan Stein MD [place]: St: ADM Name: Faith LOWEMOJGAN MOLINA [facility] : [birth year] Age/S: 68/F [address] [facility] Unit #: [id number] Loc: [address] [address] Phys: Ilan Stein MD Acct: [id number] Dis Date: Status: ADM IN PHONE #: [phone] Exam Date: 12/08/2018 0540 FAX #: [phone] Reason: ileus EXAMS: CPT CODE: [id number] XR ABDOMEN 2V [id number] REASON FOR EXAM: ileus EXAM ORDER DATE: 12/08/2018 7:00 AM Attending [place]: Ilan barrett MD PROCEDURE: - XR ABDOMEN 2V COMPARISON:2018 FINDINGS: 2 views of the abdomen obtained at 5:49 AM. Scatte red fecal material seen in the colon. No evidence of organomegaly or ascit es. No evidence of free air. A PEG tube is identified in the upper stomac h IMPRESSION: Slight interval improvement in the gaseous distent ion of small bowel loops suggestive of ileus at 0730 Reported an d signed by: Brayan Toro M.D. CC: Ilan Stein Technologist: OCTAVIO Macedo Date/Time/By: 12/08/2018 (79) : By: Rodrigo Orig Print D/T: S: 12/08/2018 (7901) PAGE 1 Signed Report - XR ABDOMEN [id number] 07:30:00 FAX: Ilan Holt MD [place]: St: DIS Name: MOJGAN SAUCEDO [facility] : [birth year] Age/S: 68/F [address] [facility] Unit #: [id number] Loc: [place] [address] Phys: Ilan Stein MD Acct: [id number] Dis Date: Status: DIS IN PHONE #: [phone] Exam Date: 12/08/2018539 FAX #: [phone] Reason: ileus EXAMS: CPT CODE: [id number] XR ABDOMEN 2V 83516 REASON FOR EXAM: ileus EXAM ORDER DATE: 12/08/2018 7:00 AM Attending Crispin: Ilan barrett MD PROCEDURE: - XR ABDOMEN 2V COMPARISON:2018 FINDINGS: 2 views of the abdomen obtained at 5:49 AM. Scatte red fecal material seen in the colon. No evidence of organomegaly or ascit es. No evidence of free air. A PEG tube is identified in the upper stomac h IMPRESSION: Slight interval improvement in the gaseous distent ion of small bowel loops suggestive of ileus at 0730 Reported an d signed by: Brayan Toro M.D. CC: Ilan Stein Technologist: OCTAVIO Macedo Date/Time/By: 12/08/2018 (0730) : By: HarryVTL Orig Print D/T: S: 12/08/2018 (4071) PAGE 1 Signed Report BASIC METABOLIC PANEL 2018-12-08 07:14:00* Test Item Value Reference Range Interpretation Comments SODIUM (test code = NA) 139 mmol/L 136-145 N POTASSIUM (test code = K) 2.5 mmol/L 3.5-5.1 Re sults called to [place] [address] by IVANA 12/08/18 0713Critical results verified and read back by Nurse? CHLORIDE (test code = CL) 107.0 mmol/L 98-107 N CARBON DIOXIDE (test code = CO2) 20.0 mmol/L 21-32 L ANION GAP (test code = GAP) 14.5 10-20 N GLUCOSE (test code = GLU) 95 mg/dL 74-106 N BLOOD UREA NITROGEN (test code = BUN) 27 mg/dL 7-18 H RESULT VERIFIED BY REPEAT ANALYSIS GLOMERULAR FILTRATION RATE (test code = GFR) > 60 mL/min >=60 Estimated GFR by using Modified MDRD formula.Chronic kidney disease is defined as either kidney damageor GFR <60 mL/min/1.73 m2 for >3 months. CREATININE (test code = CREAT) 0.80 mg/dL 0.55-1.02 N Note change in reference range due to change in reagent. BUN/CREATININE RATIO (test code = BUN/CREA) 33.8 10-20 H CALCIUM (test code = CA) 7.4 mg/dL 8.5-10.1 L [id number] 07:14:00* Test Item Value Reference Range Interpretation Comments PHOSPHORUS (test code = PHOS) 2.1 mg/dL 2.5-4.9 L [id number] 07:14:00* Test Item Value Reference Range Interpretation Comments MAGNESIUM (test code = MAG) 1.5 mg/dL 1.8-2.4 L CALCIUM [id number] 07:14:00* Test Item Value Reference Range Interpretation Comments CALCIUM IONIZED (test code = ERICH) 1.15 mmol/L 1.12-1.32 N CBC W/MANUAL [id number] 06:58:00* Test Item Value Reference Range Interpretation Comments WHITE BLOOD CELL (test code = WBC) 11.8 K/mm3 4.5-12.5 N RED BLOOD CELL (test code = RBC) 2.50 mill/mm3 3.7-5.2 L HEMOGLOBIN (test code = HGB) 7.2 gram/dL 11.5-15.5 L HEMATOCRIT (test code = HCT) 21.6 % 36.0-46.0 LL Results called to [place] [address] by ARMAND 12/08/18 0656Critical results verified and read back by Nurse? Y MEAN CELL VOLUME (test code = MCV) 86.4 fL 80-98 N MEAN CELL HGB (test code = MCH) 28.8 picogram 27.0-33.0 N MEAN CELL HGB CONCETRATION (test code = MCHC) 33.3 gram/dL 33.0-36. 0 N RED CELL DISTRIBUTION WIDTH (test code = RDW) 14.9 % 11.6-16. 2 N RED CELL DISTRIBUTION WIDTH SD (test code = RDW-SD) 46.5 fL 37 .0-51.0 N PLATELET COUNT (test code = PLT) 124 K/mm3 150-450 L MEAN PLATELET VOLUME (test code = MPV) 12.8 fL 6.7-11.0 H IMMATURE GRANULOCYTE % (test code = IG%) 1.3 % 0.0-5.0 N NUCLEATED RBC % (test code = NRBC%) 0.0 % 0-0 N NEUTROPHIL # (test code = NT#) 10.10 K/mm3 1.8-7.7 H IMMATURE GRANULOCYTE # (test code = IG#) 0.15 x10 3/uL 0-0.03 H LYMPHOCYTE # (test code = LY#) 1.20 K/mm3 1.0-5.0 N MONOCYTE # (test code = MO#) 0.32 K/mm3 0-0.8 N EOSINOPHIL # (test code = EO#) 0.02 K/mm3 0.0-0.5 N BASOPHIL # (test code = BA#) 0.00 K/mm3 0.0-0.2 N NUCLEATED RBC # (test code = NRBC#) 0.00 K/mm3 0.0-0.1 N MANUAL DIFF REQUIRED (test code = MDIFF) YES STAIN ACCEPTABILITY (test code = STN ACCEPTABLE) TOTAL CELLS COUNTED (test code = TCC) #CELLS SEGMENTED NEUTROPHILS (test code = SEG) % 39-69 LYMPHOCYTE (test code = LYMPH) % 25-55 MONOCYTE (test code = MON) % 0-10 EOSINOPHIL (test code = EOS) % 0.0-5.0 CABOT RINGS (test code = CAB) MORPHOLOGY COMMENT (test code = MOC) PLATELET ESTIMATE (test code = PLTEST) PLATELET MORPHOLOGY (test code = PLTMORPH) CBC W/MANUAL [id number] 06:58:00* Test Item Value Reference Range Interpretation Comments WHITE BLOOD CELL (test code = WBC) 11.8 K/mm3 4.5-12.5 N RED BLOOD CELL (test code = RBC) 2.50 mill/mm3 3.7-5.2 L HEMOGLOBIN (test code = HGB) 7.2 gram/dL 11.5-15.5 L HEMATOCRIT (test code = HCT) 21.6 % 36.0-46.0 LL Results called to [id number] by ARMAND 12/08/18 0656Critical results verified and read back by Nurse? Y MEAN CELL VOLUME (test code = MCV) 86.4 fL 80-98 N MEAN CELL HGB (test code = MCH) 28.8 picogram 27.0-33.0 N MEAN CELL HGB CONCETRATION (test code = MCHC) 33.3 gram/dL 33.0-36. 0 N RED CELL DISTRIBUTION WIDTH (test code = RDW) 14.9 % 11.6-16. 2 N RED CELL DISTRIBUTION WIDTH SD (test code = RDW-SD) 46.5 fL 37 .0-51.0 N PLATELET COUNT (test code = PLT) 124 K/mm3 150-450 L MEAN PLATELET VOLUME (test code = MPV) 12.8 fL 6.7-11.0 H IMMATURE GRANULOCYTE % (test code = IG%) 1.3 % 0.0-5.0 N NUCLEATED RBC % (test code = NRBC%) 0.0 % 0-0 N NEUTROPHIL # (test code = NT#) 10.10 K/mm3 1.8-7.7 H IMMATURE GRANULOCYTE # (test code = IG#) 0.15 x10 3/uL 0-0.03 H LYMPHOCYTE # (test code = LY#) 1.20 K/mm3 1.0-5.0 N MONOCYTE # (test code = MO#) 0.32 K/mm3 0-0.8 N EOSINOPHIL # (test code = EO#) 0.02 K/mm3 0.0-0.5 N BASOPHIL # (test code = BA#) 0.00 K/mm3 0.0-0.2 N NUCLEATED RBC # (test code = NRBC#) 0.00 K/mm3 0.0-0.1 N MANUAL DIFF REQUIRED (test code = MDIFF) YES STAIN ACCEPTABILITY (test code = STN ACCEPTABLE) TOTAL CELLS COUNTED (test code = TCC) #CELLS SEGMENTED NEUTROPHILS (test code = SEG) % 39-69 LYMPHOCYTE (test code = LYMPH) % 25-55 MONOCYTE (test code = MON) % 0-10 EOSINOPHIL (test code = EOS) % 0.0-5.0 CABOT RINGS (test code = CAB) MORPHOLOGY COMMENT (test code = MOC) PLATELET ESTIMATE (test code = PLTEST) PLATELET MORPHOLOGY (test code = PLTMORPH) CBC W/MANUAL [id number] 06:58:00* Test Item Value Reference Range Interpretation Comments WHITE BLOOD CELL (test code = WBC) 11.8 K/mm3 4.5-12.5 N RED BLOOD CELL (test code = RBC) 2.50 mill/mm3 3.7-5.2 L HEMOGLOBIN (test code = HGB) 7.2 gram/dL 11.5-15.5 L HEMATOCRIT (test code = HCT) 21.6 % 36.0-46.0 LL Results called to [id number] by [email or web address] 12/08/18 0656Critical results verified and read back by Nurse? Y MEAN CELL VOLUME (test code = MCV) 86.4 fL 80-98 N MEAN CELL HGB (test code = MCH) 28.8 picogram 27.0-33.0 N MEAN CELL HGB CONCETRATION (test code = MCHC) 33.3 gram/dL 33.0-36. 0 N RED CELL DISTRIBUTION WIDTH (test code = RDW) 14.9 % 11.6-16. 2 N RED CELL DISTRIBUTION WIDTH SD (test code = RDW-SD) 46.5 fL 37 .0-51.0 N PLATELET COUNT (test code = PLT) 124 K/mm3 150-450 L MEAN PLATELET VOLUME (test code = MPV) 12.8 fL 6.7-11.0 H IMMATURE GRANULOCYTE % (test code = IG%) 1.3 % 0.0-5.0 N NUCLEATED RBC % (test code = NRBC%) 0.0 % 0-0 N NEUTROPHIL # (test code = NT#) 10.10 K/mm3 1.8-7.7 H IMMATURE GRANULOCYTE # (test code = IG#) 0.15 x10 3/uL 0-0.03 H LYMPHOCYTE # (test code = LY#) 1.20 K/mm3 1.0-5.0 N MONOCYTE # (test code = MO#) 0.32 K/mm3 0-0.8 N EOSINOPHIL # (test code = EO#) 0.02 K/mm3 0.0-0.5 N BASOPHIL # (test code = BA#) 0.00 K/mm3 0.0-0.2 N NUCLEATED RBC # (test code = NRBC#) 0.00 K/mm3 0.0-0.1 N MANUAL DIFF REQUIRED (test code = MDIFF) YES STAIN ACCEPTABILITY (test code = STN ACCEPTABLE) TOTAL CELLS COUNTED (test code = TCC) #CELLS SEGMENTED NEUTROPHILS (test code = SEG) % 39-69 LYMPHOCYTE (test code = LYMPH) % 25-55 MONOCYTE (test code = MON) % 0-10 EOSINOPHIL (test code = EOS) % 0.0-5.0 MORPHOLOGY COMMENT (test code = MOC) PLATELET ESTIMATE (test code = PLTEST) PLATELET MORPHOLOGY (test code = PLTMORPH) CBC W/MANUAL [id number] 06:58:00* Test Item Value Reference Range Interpretation Comments WHITE BLOOD CELL (test code = WBC) 11.8 K/mm3 4.5-12.5 N RED BLOOD CELL (test code = RBC) 2.50 mill/mm3 3.7-5.2 L HEMOGLOBIN (test code = HGB) 7.2 gram/dL 11.5-15.5 L HEMATOCRIT (test code = HCT) 21.6 % 36.0-46.0 LL Results called to [id number] by RAMAND 12/08/18 0656Critical results verified and read back by Nurse? Y MEAN CELL VOLUME (test code = MCV) 86.4 fL 80-98 N MEAN CELL HGB (test code = MCH) 28.8 picogram 27.0-33.0 N MEAN CELL HGB CONCETRATION (test code = MCHC) 33.3 gram/dL 33.0-36. 0 N RED CELL DISTRIBUTION WIDTH (test code = RDW) 14.9 % 11.6-16. 2 N RED CELL DISTRIBUTION WIDTH SD (test code = RDW-SD) 46.5 fL 37 .0-51.0 N PLATELET COUNT (test code = PLT) 124 K/mm3 150-450 L MEAN PLATELET VOLUME (test code = MPV) 12.8 fL 6.7-11.0 H IMMATURE GRANULOCYTE % (test code = IG%) 1.3 % 0.0-5.0 N NUCLEATED RBC % (test code = NRBC%) 0.0 % 0-0 N NEUTROPHIL # (test code = NT#) 10.10 K/mm3 1.8-7.7 H IMMATURE GRANULOCYTE # (test code = IG#) 0.15 x10 3/uL 0-0.03 H LYMPHOCYTE # (test code = LY#) 1.20 K/mm3 1.0-5.0 N MONOCYTE # (test code = MO#) 0.32 K/mm3 0-0.8 N EOSINOPHIL # (test code = EO#) 0.02 K/mm3 0.0-0.5 N BASOPHIL # (test code = BA#) 0.00 K/mm3 0.0-0.2 N NUCLEATED RBC # (test code = NRBC#) 0.00 K/mm3 0.0-0.1 N MANUAL DIFF REQUIRED (test code = MDIFF) YES STAIN ACCEPTABILITY (test code = STN ACCEPTABLE) TOTAL CELLS COUNTED (test code = TCC) #CELLS SEGMENTED NEUTROPHILS (test code = SEG) % 39-69 LYMPHOCYTE (test code = LYMPH) % 25-55 MONOCYTE (test code = MON) % 0-10 MORPHOLOGY COMMENT (test code = MOC) PLATELET ESTIMATE (test code = PLTEST) PLATELET MORPHOLOGY (test code = PLTMORPH) CBC W/MANUAL [id number] 06:58:00* Test Item Value Reference Range Interpretation Comments WHITE BLOOD CELL (test code = WBC) 11.8 K/mm3 4.5-12.5 N RED BLOOD CELL (test code = RBC) 2.50 mill/mm3 3.7-5.2 L HEMOGLOBIN (test code = HGB) 7.2 gram/dL 11.5-15.5 L HEMATOCRIT (test code = HCT) 21.6 % 36.0-46.0 LL Results called to [id number] by ARMAND 12/08/18 0656Critical results verified and read back by Nurse? Y MEAN CELL VOLUME (test code = MCV) 86.4 fL 80-98 N MEAN CELL HGB (test code = MCH) 28.8 picogram 27.0-33.0 N MEAN CELL HGB CONCETRATION (test code = MCHC) 33.3 gram/dL 33.0-36. 0 N RED CELL DISTRIBUTION WIDTH (test code = RDW) 14.9 % 11.6-16. 2 N RED CELL DISTRIBUTION WIDTH SD (test code = RDW-SD) 46.5 fL 37 .0-51.0 N PLATELET COUNT (test code = PLT) 124 K/mm3 150-450 L MEAN PLATELET VOLUME (test code = MPV) 12.8 fL 6.7-11.0 H IMMATURE GRANULOCYTE % (test code = IG%) 1.3 % 0.0-5.0 N NUCLEATED RBC % (test code = NRBC%) 0.0 % 0-0 N NEUTROPHIL # (test code = NT#) 10.10 K/mm3 1.8-7.7 H IMMATURE GRANULOCYTE # (test code = IG#) 0.15 x10 3/uL 0-0.03 H LYMPHOCYTE # (test code = LY#) 1.20 K/mm3 1.0-5.0 N MONOCYTE # (test code = MO#) 0.32 K/mm3 0-0.8 N EOSINOPHIL # (test code = EO#) 0.02 K/mm3 0.0-0.5 N BASOPHIL # (test code = BA#) 0.00 K/mm3 0.0-0.2 N NUCLEATED RBC # (test code = NRBC#) 0.00 K/mm3 0.0-0.1 N MANUAL DIFF REQUIRED (test code = MDIFF) YES STAIN ACCEPTABILITY (test code = STN ACCEPTABLE) TOTAL CELLS COUNTED (test code = TCC) #CELLS SEGMENTED NEUTROPHILS (test code = SEG) % 39-69 LYMPHOCYTE (test code = LYMPH) % 25-55 MONOCYTE (test code = MON) % 0-10 EOSINOPHIL (test code = EOS) % 0.0-5.0 CABOT RINGS (test code = CAB) MORPHOLOGY COMMENT (test code = MOC) PLATELET ESTIMATE (test code = PLTEST) PLATELET MORPHOLOGY (test code = PLTMORPH) BASIC METABOLIC [id number] 06:31:00* Test Item Value Reference Range Interpretation Comments SODIUM (test code = NA) mmol/L 136-145 POTASSIUM (test code = K) mmol/L 3.5-5.1 CHLORIDE (test code = CL) mmol/L 98-107 CARBON DIOXIDE (test code = CO2) mmol/L 21-32 ANION GAP (test code = GAP) 10-20 GLUCOSE (test code = GLU) mg/dL 74-106 BLOOD UREA NITROGEN (test code = BUN) mg/dL 7-18 GLOMERULAR FILTRATION RATE (test code = GFR) mL/min >=60 CREATININE (test code = CREAT) mg/dL 0.55-1.02 BUN/CREATININE RATIO (test code = BUN/CREA) 10-20 CALCIUM (test code = CA) mg/dL 8.5-10.1 [id number] 06:31:00* Test Item Value Reference Range Interpretation Comments PHOSPHORUS (test code = PHOS) mg/dL 2.5-4.9 [id number] 06:31:00* Test Item Value Reference Range Interpretation Comments MAGNESIUM (test code = MAG) mg/dL 1.8-2.4 CALCIUM [id number] 06:31:00* Test Item Value Reference Range Interpretation Comments CALCIUM IONIZED (test code = ERICH) 1.15 mmol/L 1.12-1.32 N LACTIC [id number] 22:14:00* Test Item Value Reference Range Interpretation Comments LACTIC ACID (test code = LACT) 1.9 mmol/L 0.4-1.9 N LACTIC [id number] 18:13:00* Test Item Value Reference Range Interpretation Comments LACTIC ACID (test code = LACT) 2.1 mmol/L 0.4-1.9 Results called to [id number] by 12/07/18 1813Critical results verified and read back by Nurse? Y THYROID STIMULATING [id number] 16:34:00* Test Item Value Reference Range Interpretation Comments THYROID STIMULATING HORMONE (test code = TSH) 3.340 uIU/mL 0.36-3.7 4 N TSH REFERENCE RANGES: EUTHYROID: 0.35 - 4.3 mIU/mL HYPO : > 5.5 mIU/mL HYPER : < 0.35 mIU/mL - XR CHEST 1 [id number] 16:26:00 FAX: Ilan Holt MD [place]: St: DIS FAX: Charo Iraheta MD [phone] Name: MOJGAN CUMMINGS [facility] : 1950 Age/S: 68/F [address] [facility] Unit #: [id number] Loc: [place] [address] Phys: Charo Iraheta MD Acct: [id number] Dis Date: Status: DIS IN PHONE #: [phone] Exam Date: 12/07/2018 1505 FAX #: [phone] Reason: POST CENTRAL LINE PLACEMENT EXAMS: CPT CODE: [id number] XR CHEST 1 V 86964 EXAM: Chest x-ray, one view; INFORMATION: Sepsis; status post line placement; IMPRESSION: 1. Well-positioned right subclavian central line; its tip is at the SVC/right atrial junction. 2. No evidence of pneumothorax and 3. No further changes; advanced osteoarthritis of both shoulder joints. E lectronically Signed by Crispin Gates on 11/18 at 4518 Reported and signed by: Kimmie Gates M.D. CC: Ilan Stein; Charo Iraheta MD Technologist: Nida ALEXANDRA(R); Maria Guadalupe Gonzalez (R) Trnscrd Date/Time/By: 12/07/2018 (9632) : By: HarryGRW O rig Print D/T: S: 12/07/2018 (8814) PAGE 1 Signed Report - XR CHEST 1 [id number] 16:26:00 FAX: Ilan Holt MD [place]: B St: ADM FAX: Charo Iraheta MD [phone] Name: MOJGAN CUMMINGS [facility] : 1950 Age/S: 68/F [address] [facility] Unit #: [id number] Loc: [place] [address] Phys: Charo Iraheta MD Acct: [id number] Dis Date: Status: ADM IN PHONE #: [phone] Exam Date: 12/07/2018 1505 FAX #: [phone] Reason: POST CENTRAL LINE PLACEMENT EXAMS: CPT CODE: [id number] XR CHEST 1 V 89117 EXAM: Chest x-ray, one view; INFORMATION: Sepsis; status post line placement; IMPRESSION: 1. Well-positioned right subclavian central line; its tip is at the SVC/right atrial junction. 2. No evidence of pneumothorax and 3. No further changes; advanced osteoarthritis of both shoulder joints. E lectronically Signed by Crispin Gates on 11/18 at 8589 Reported and signed by: Kimmie Gates M.D. CC: Ilan Stein; Charo Iraheta MD Technologist: Nida ALEXANDRA(R); Maria Guadalupe Gonzalez (R) Trnwyrd Date/Time/By: 12/07/2018 (3017) : By: Omar O rig Print D/T: S: 12/07/2018 (9619) PAGE 1 Signed Report - XR CHEST 1 [id number] 16:26:00 FAX: Ilan Holt MD [place]: B St: DIS FAX: Charo Iraheta MD [phone] Name: MOJGAN CUMMINGS [facility] : 1950 Age/S: 68/F [address] [facility] Unit #: [id number] Loc: [facility] [place] [address] Phys: Charo Iraheta MD Acct: [id number] Dis Date: Status: DIS IN PHONE #: [phone] Exam Date: 12/07/2018 1505 FAX #: [phone] Reason: POST CENTRAL LINE PLACEMENT EXAMS: CPT CODE: [id number] XR CHEST 1 V 94669 EXAM: Chest x-ray, one view; INFORMATION: Sepsis; status post line placement; IMPRESSION: 1. Well-positioned right subclavian central line; its tip is at the SVC/right atrial junction. 2. No evidence of pneumothorax and 3. No further changes; advanced osteoarthritis of both shoulder joints. E lectronically Signed by Crispin Gates on 11/18 at 7661 Reported and signed by: Kimmie Gates M.D. CC: Ilan Stein; Charo Iraheta MD Technologist: Nida ALEXANDRA(R); Maria Guadalupe Gonzalez (R) Trnscrd Date/Time/By: 12/07/2018 (1815) : By: Omar O rig Print D/T: S: 12/07/2018 (7904) PAGE 1 Signed Report LACTIC [id number] 14:35:00* Test Item Value Reference Range Interpretation Comments LACTIC ACID (test code = LACT) 2.2 mmol/L 0.4-1.9 HH Results called to [id number] by CORBYKN 12/07/18 1434Critical results verified and read back by Nurse? Y CBC W/MANUAL [id number] 09:38:00* Test Item Value Reference Range Interpretation Comments WHITE BLOOD CELL (test code = WBC) 11.5 K/mm3 4.5-12.5 N RED BLOOD CELL (test code = RBC) 2.41 mill/mm3 3.7-5.2 L HEMOGLOBIN (test code = HGB) 6.8 gram/dL 11.5-15.5 L HEMATOCRIT (test code = HCT) 21.6 % 36.0-46.0 LL Results called to [id number] by V.LAB.LDB 12/07/18 0738Critical results verified and read back by Nurse? Y MEAN CELL VOLUME (test code = MCV) 89.6 fL 80-98 N MEAN CELL HGB (test code = MCH) 28.2 picogram 27.0-33.0 N MEAN CELL HGB CONCETRATION (test code = MCHC) 31.5 gram/dL 33.0-36. 0 L RED CELL DISTRIBUTION WIDTH (test code = RDW) 15.6 % 11.6-16. 2 N RED CELL DISTRIBUTION WIDTH SD (test code = RDW-SD) 50.0 fL 37 .0-51.0 N PLATELET COUNT (test code = PLT) 146 K/mm3 150-450 L MEAN PLATELET VOLUME (test code = MPV) 13.1 fL 6.7-11.0 H IMMATURE GRANULOCYTE % (test code = IG%) 0.9 % 0.0-5.0 N NUCLEATED RBC % (test code = NRBC%) 0.2 % 0-0 H NEUTROPHIL # (test code = NT#) 10.00 K/mm3 1.8-7.7 H IMMATURE GRANULOCYTE # (test code = IG#) 0.10 x10 3/uL 0-0.03 H LYMPHOCYTE # (test code = LY#) 0.98 K/mm3 1.0-5.0 L MONOCYTE # (test code = MO#) 0.42 K/mm3 0-0.8 N EOSINOPHIL # (test code = EO#) 0.02 K/mm3 0.0-0.5 N BASOPHIL # (test code = BA#) 0.01 K/mm3 0.0-0.2 N NUCLEATED RBC # (test code = NRBC#) 0.02 K/mm3 0.0-0.1 N MANUAL DIFF REQUIRED (test code = MDIFF) YES STAIN ACCEPTABILITY (test code = STN ACCEPTABLE) STAIN ACCEPTABLE TOTAL CELLS COUNTED (test code = TCC) 114 #CELLS SEGMENTED NEUTROPHILS (test code = SEG) 85.1 % 39-69 H BAND NEUTROPHIL (test code = BAND) 3.5 % 0-10 N LYMPHOCYTE (test code = LYMPH) 9.6 % 25-55 L REACTIVE LYMPH (test code = RELYMPH) 0 % MONOCYTE (test code = MON) 0.9 % 0-10 N EOSINOPHIL (test code = EOS) 0.9 % 0.0-5.0 N BASOPHIL (test code = BASO) 0 % 0-1.0 N METAMYELOCYTE (test code = META) 0 % 0-0 N MYELOCYTE (test code = MYELO) 0 % 0.0-0.0 N PROMYELOCYTE (test code = PROM) 0 % 0-0 N HYPOCHROMIA (test code = HYPO) 1+ ANISOCYTOSIS (test code = ANISO) 1+ PLATELET ESTIMATE (test code = PLTEST) ADEQUATE PLATELET MORPHOLOGY (test code = PLTMORPH) NORMAL IMMATURE FORMS (test code = IMMAT) 0 % [id number] 08:07:00* Test Item Value Reference Range Interpretation Comments TROPONIN-I (test code = TROPI) 0.351 ng/mL 0-0.045 HH Results called to TAPAN CHOU7454by V.LAB.OA 12/07/18 0807Critical results verified and read back by Nurse? Y BASIC METABOLIC [id number] 07:45:00* Test Item Value Reference Range Interpretation Comments SODIUM (test code = NA) 137 mmol/L 136-145 N POTASSIUM (test code = K) 3.7 mmol/L 3.5-5.1 N CHLORIDE (test code = CL) 108.0 mmol/L 98-107 H CARBON DIOXIDE (test code = CO2) 18.0 mmol/L 21-32 L ANION GAP (test code = GAP) 14.7 10-20 N GLUCOSE (test code = GLU) 101 mg/dL 74-106 N BLOOD UREA NITROGEN (test code = BUN) 38 mg/dL 7-18 H GLOMERULAR FILTRATION RATE (test code = GFR) > 60 mL/min >=60 Estimated GFR by using Modified MDRD formula.Chronic kidney disease is defined as either kidney damageor GFR <60 mL/min/1.73 m2 for >3 months. CREATININE (test code = CREAT) 0.80 mg/dL 0.55-1.02 N Note change in reference range due to change in reagent. BUN/CREATININE RATIO (test code = BUN/CREA) 46.6 10-20 H CALCIUM (test code = CA) 7.3 mg/dL 8.5-10.1 L [id number] 07:45:00* Test Item Value Reference Range Interpretation Comments PHOSPHORUS (test code = PHOS) 2.6 mg/dL 2.5-4.9 N [id number] 07:45:00* Test Item Value Reference Range Interpretation Comments MAGNESIUM (test code = MAG) 2.2 mg/dL 1.8-2.4 N CALCIUM [id number] 07:45:00* Test Item Value Reference Range Interpretation Comments CALCIUM IONIZED (test code = ERICH) 1.16 mmol/L 1.12-1.32 N CBC W/MANUAL [id number] 07:38:00* Test Item Value Reference Range Interpretation Comments WHITE BLOOD CELL (test code = WBC) 11.5 K/mm3 4.5-12.5 N RED BLOOD CELL (test code = RBC) 2.41 mill/mm3 3.7-5.2 L HEMOGLOBIN (test code = HGB) 6.8 gram/dL 11.5-15.5 L HEMATOCRIT (test code = HCT) 21.6 % 36.0-46.0 Results called to [id number] by V.[email or web address] 12/07/18 0738Critical results verified and read back by Nurse? Y MEAN CELL VOLUME (test code = MCV) 89.6 fL 80-98 N MEAN CELL HGB (test code = MCH) 28.2 picogram 27.0-33.0 N MEAN CELL HGB CONCETRATION (test code = MCHC) 31.5 gram/dL 33.0-36. 0 L RED CELL DISTRIBUTION WIDTH (test code = RDW) 15.6 % 11.6-16. 2 N RED CELL DISTRIBUTION WIDTH SD (test code = RDW-SD) 50.0 fL 37 .0-51.0 N PLATELET COUNT (test code = PLT) 146 K/mm3 150-450 L MEAN PLATELET VOLUME (test code = MPV) 13.1 fL 6.7-11.0 H IMMATURE GRANULOCYTE % (test code = IG%) 0.9 % 0.0-5.0 N NUCLEATED RBC % (test code = NRBC%) 0.2 % 0-0 H NEUTROPHIL # (test code = NT#) 10.00 K/mm3 1.8-7.7 H IMMATURE GRANULOCYTE # (test code = IG#) 0.10 x10 3/uL 0-0.03 H LYMPHOCYTE # (test code = LY#) 0.98 K/mm3 1.0-5.0 L MONOCYTE # (test code = MO#) 0.42 K/mm3 0-0.8 N EOSINOPHIL # (test code = EO#) 0.02 K/mm3 0.0-0.5 N BASOPHIL # (test code = BA#) 0.01 K/mm3 0.0-0.2 N NUCLEATED RBC # (test code = NRBC#) 0.02 K/mm3 0.0-0.1 N MANUAL DIFF REQUIRED (test code = MDIFF) YES STAIN ACCEPTABILITY (test code = STN ACCEPTABLE) TOTAL CELLS COUNTED (test code = TCC) #CELLS SEGMENTED NEUTROPHILS (test code = SEG) % 39-69 LYMPHOCYTE (test code = LYMPH) % 25-55 MONOCYTE (test code = MON) % 0-10 EOSINOPHIL (test code = EOS) % 0.0-5.0 CABOT RINGS (test code = CAB) MORPHOLOGY COMMENT (test code = MOC) PLATELET ESTIMATE (test code = PLTEST) PLATELET MORPHOLOGY (test code = PLTMORPH) CBC W/MANUAL [id number] 07:38:00* Test Item Value Reference Range Interpretation Comments WHITE BLOOD CELL (test code = WBC) 11.5 K/mm3 4.5-12.5 N RED BLOOD CELL (test code = RBC) 2.41 mill/mm3 3.7-5.2 L HEMOGLOBIN (test code = HGB) 6.8 gram/dL 11.5-15.5 L HEMATOCRIT (test code = HCT) 21.6 % 36.0-46.0 LL Results called to [id number] by ARMAND 12/07/18 0738Critical results verified and read back by Nurse? Y MEAN CELL VOLUME (test code = MCV) 89.6 fL 80-98 N MEAN CELL HGB (test code = MCH) 28.2 picogram 27.0-33.0 N MEAN CELL HGB CONCETRATION (test code = MCHC) 31.5 gram/dL 33.0-36. 0 L RED CELL DISTRIBUTION WIDTH (test code = RDW) 15.6 % 11.6-16. 2 N RED CELL DISTRIBUTION WIDTH SD (test code = RDW-SD) 50.0 fL 37 .0-51.0 N PLATELET COUNT (test code = PLT) 146 K/mm3 150-450 L MEAN PLATELET VOLUME (test code = MPV) 13.1 fL 6.7-11.0 H IMMATURE GRANULOCYTE % (test code = IG%) 0.9 % 0.0-5.0 N NUCLEATED RBC % (test code = NRBC%) 0.2 % 0-0 H NEUTROPHIL # (test code = NT#) 10.00 K/mm3 1.8-7.7 H IMMATURE GRANULOCYTE # (test code = IG#) 0.10 x10 3/uL 0-0.03 H LYMPHOCYTE # (test code = LY#) 0.98 K/mm3 1.0-5.0 L MONOCYTE # (test code = MO#) 0.42 K/mm3 0-0.8 N EOSINOPHIL # (test code = EO#) 0.02 K/mm3 0.0-0.5 N BASOPHIL # (test code = BA#) 0.01 K/mm3 0.0-0.2 N NUCLEATED RBC # (test code = NRBC#) 0.02 K/mm3 0.0-0.1 N MANUAL DIFF REQUIRED (test code = MDIFF) YES STAIN ACCEPTABILITY (test code = STN ACCEPTABLE) TOTAL CELLS COUNTED (test code = TCC) #CELLS SEGMENTED NEUTROPHILS (test code = SEG) % 39-69 LYMPHOCYTE (test code = LYMPH) % 25-55 MONOCYTE (test code = MON) % 0-10 EOSINOPHIL (test code = EOS) % 0.0-5.0 CABOT RINGS (test code = CAB) MORPHOLOGY COMMENT (test code = MOC) PLATELET ESTIMATE (test code = PLTEST) PLATELET MORPHOLOGY (test code = PLTMORPH) CBC W/MANUAL [id number] 07:38:00* Test Item Value Reference Range Interpretation Comments WHITE BLOOD CELL (test code = WBC) 11.5 K/mm3 4.5-12.5 N RED BLOOD CELL (test code = RBC) 2.41 mill/mm3 3.7-5.2 L HEMOGLOBIN (test code = HGB) 6.8 gram/dL 11.5-15.5 L HEMATOCRIT (test code = HCT) 21.6 % 36.0-46.0 LL Results called to [id number] by ARMAND 12/07/18 0738Critical results verified and read back by Nurse? Y MEAN CELL VOLUME (test code = MCV) 89.6 fL 80-98 N MEAN CELL HGB (test code = MCH) 28.2 picogram 27.0-33.0 N MEAN CELL HGB CONCETRATION (test code = MCHC) 31.5 gram/dL 33.0-36. 0 L RED CELL DISTRIBUTION WIDTH (test code = RDW) 15.6 % 11.6-16. 2 N RED CELL DISTRIBUTION WIDTH SD (test code = RDW-SD) 50.0 fL 37 .0-51.0 N PLATELET COUNT (test code = PLT) 146 K/mm3 150-450 L MEAN PLATELET VOLUME (test code = MPV) 13.1 fL 6.7-11.0 H IMMATURE GRANULOCYTE % (test code = IG%) 0.9 % 0.0-5.0 N NUCLEATED RBC % (test code = NRBC%) 0.2 % 0-0 H NEUTROPHIL # (test code = NT#) 10.00 K/mm3 1.8-7.7 H IMMATURE GRANULOCYTE # (test code = IG#) 0.10 x10 3/uL 0-0.03 H LYMPHOCYTE # (test code = LY#) 0.98 K/mm3 1.0-5.0 L MONOCYTE # (test code = MO#) 0.42 K/mm3 0-0.8 N EOSINOPHIL # (test code = EO#) 0.02 K/mm3 0.0-0.5 N BASOPHIL # (test code = BA#) 0.01 K/mm3 0.0-0.2 N NUCLEATED RBC # (test code = NRBC#) 0.02 K/mm3 0.0-0.1 N MANUAL DIFF REQUIRED (test code = MDIFF) YES STAIN ACCEPTABILITY (test code = STN ACCEPTABLE) TOTAL CELLS COUNTED (test code = TCC) #CELLS SEGMENTED NEUTROPHILS (test code = SEG) % 39-69 LYMPHOCYTE (test code = LYMPH) % 25-55 MONOCYTE (test code = MON) % 0-10 EOSINOPHIL (test code = EOS) % 0.0-5.0 MORPHOLOGY COMMENT (test code = MOC) PLATELET ESTIMATE (test code = PLTEST) PLATELET MORPHOLOGY (test code = PLTMORPH) CBC W/MANUAL [id number] 07:38:00* Test Item Value Reference Range Interpretation Comments WHITE BLOOD CELL (test code = WBC) 11.5 K/mm3 4.5-12.5 N RED BLOOD CELL (test code = RBC) 2.41 mill/mm3 3.7-5.2 L HEMOGLOBIN (test code = HGB) 6.8 gram/dL 11.5-15.5 L HEMATOCRIT (test code = HCT) 21.6 % 36.0-46.0 LL Results called to [id number] by [email or web address] 12/07/18 0738Critical results verified and read back by Nurse? Y MEAN CELL VOLUME (test code = MCV) 89.6 fL 80-98 N MEAN CELL HGB (test code = MCH) 28.2 picogram 27.0-33.0 N MEAN CELL HGB CONCETRATION (test code = MCHC) 31.5 gram/dL 33.0-36. 0 L RED CELL DISTRIBUTION WIDTH (test code = RDW) 15.6 % 11.6-16. 2 N RED CELL DISTRIBUTION WIDTH SD (test code = RDW-SD) 50.0 fL 37 .0-51.0 N PLATELET COUNT (test code = PLT) 146 K/mm3 150-450 L MEAN PLATELET VOLUME (test code = MPV) 13.1 fL 6.7-11.0 H IMMATURE GRANULOCYTE % (test code = IG%) 0.9 % 0.0-5.0 N NUCLEATED RBC % (test code = NRBC%) 0.2 % 0-0 H NEUTROPHIL # (test code = NT#) 10.00 K/mm3 1.8-7.7 H IMMATURE GRANULOCYTE # (test code = IG#) 0.10 x10 3/uL 0-0.03 H LYMPHOCYTE # (test code = LY#) 0.98 K/mm3 1.0-5.0 L MONOCYTE # (test code = MO#) 0.42 K/mm3 0-0.8 N EOSINOPHIL # (test code = EO#) 0.02 K/mm3 0.0-0.5 N BASOPHIL # (test code = BA#) 0.01 K/mm3 0.0-0.2 N NUCLEATED RBC # (test code = NRBC#) 0.02 K/mm3 0.0-0.1 N MANUAL DIFF REQUIRED (test code = MDIFF) YES STAIN ACCEPTABILITY (test code = STN ACCEPTABLE) TOTAL CELLS COUNTED (test code = TCC) #CELLS SEGMENTED NEUTROPHILS (test code = SEG) % 39-69 LYMPHOCYTE (test code = LYMPH) % 25-55 MONOCYTE (test code = MON) % 0-10 MORPHOLOGY COMMENT (test code = MOC) PLATELET ESTIMATE (test code = PLTEST) PLATELET MORPHOLOGY (test code = PLTMORPH) CBC W/MANUAL [id number] 07:38:00* Test Item Value Reference Range Interpretation Comments WHITE BLOOD CELL (test code = WBC) 11.5 K/mm3 4.5-12.5 N RED BLOOD CELL (test code = RBC) 2.41 mill/mm3 3.7-5.2 L HEMOGLOBIN (test code = HGB) 6.8 gram/dL 11.5-15.5 L HEMATOCRIT (test code = HCT) 21.6 % 36.0-46.0 LL Results called to [id number] by ARMAND 12/07/18 0738Critical results verified and read back by Nurse? Y MEAN CELL VOLUME (test code = MCV) 89.6 fL 80-98 N MEAN CELL HGB (test code = MCH) 28.2 picogram 27.0-33.0 N MEAN CELL HGB CONCETRATION (test code = MCHC) 31.5 gram/dL 33.0-36. 0 L RED CELL DISTRIBUTION WIDTH (test code = RDW) 15.6 % 11.6-16. 2 N RED CELL DISTRIBUTION WIDTH SD (test code = RDW-SD) 50.0 fL 37 .0-51.0 N PLATELET COUNT (test code = PLT) 146 K/mm3 150-450 L MEAN PLATELET VOLUME (test code = MPV) 13.1 fL 6.7-11.0 H IMMATURE GRANULOCYTE % (test code = IG%) 0.9 % 0.0-5.0 N NUCLEATED RBC % (test code = NRBC%) 0.2 % 0-0 H NEUTROPHIL # (test code = NT#) 10.00 K/mm3 1.8-7.7 H IMMATURE GRANULOCYTE # (test code = IG#) 0.10 x10 3/uL 0-0.03 H LYMPHOCYTE # (test code = LY#) 0.98 K/mm3 1.0-5.0 L MONOCYTE # (test code = MO#) 0.42 K/mm3 0-0.8 N EOSINOPHIL # (test code = EO#) 0.02 K/mm3 0.0-0.5 N BASOPHIL # (test code = BA#) 0.01 K/mm3 0.0-0.2 N NUCLEATED RBC # (test code = NRBC#) 0.02 K/mm3 0.0-0.1 N MANUAL DIFF REQUIRED (test code = MDIFF) YES STAIN ACCEPTABILITY (test code = STN ACCEPTABLE) TOTAL CELLS COUNTED (test code = TCC) #CELLS SEGMENTED NEUTROPHILS (test code = SEG) % 39-69 LYMPHOCYTE (test code = LYMPH) % 25-55 MONOCYTE (test code = MON) % 0-10 EOSINOPHIL (test code = EOS) % 0.0-5.0 CABOT RINGS (test code = CAB) MORPHOLOGY COMMENT (test code = MOC) PLATELET ESTIMATE (test code = PLTEST) PLATELET MORPHOLOGY (test code = PLTMORPH) BASIC METABOLIC [id number] 07:32:00* Test Item Value Reference Range Interpretation Comments SODIUM (test code = NA) mmol/L 136-145 POTASSIUM (test code = K) mmol/L 3.5-5.1 CHLORIDE (test code = CL) mmol/L 98-107 CARBON DIOXIDE (test code = CO2) mmol/L 21-32 ANION GAP (test code = GAP) 10-20 GLUCOSE (test code = GLU) mg/dL 74-106 BLOOD UREA NITROGEN (test code = BUN) mg/dL 7-18 GLOMERULAR FILTRATION RATE (test code = GFR) mL/min >=60 CREATININE (test code = CREAT) mg/dL 0.55-1.02 BUN/CREATININE RATIO (test code = BUN/CREA) 10-20 CALCIUM (test code = CA) mg/dL 8.5-10.1 [id number] 07:32:00* Test Item Value Reference Range Interpretation Comments PHOSPHORUS (test code = PHOS) mg/dL 2.5-4.9 [id number] 07:32:00* Test Item Value Reference Range Interpretation Comments MAGNESIUM (test code = MAG) mg/dL 1.8-2.4 CALCIUM [id number] 07:32:00* Test Item Value Reference Range Interpretation Comments CALCIUM IONIZED (test code = ERICH) 1.16 mmol/L 1.12-1.32 N - XR ABDOMEN AP 1 [id number] 07:19:00 FAX: Ilan Holt MD [place]: St: DIS FAX: Bobby Meng PRODUCTION CLERK [phone] Name: ZOILAMOJGAN MOLINA [facility] : 1950 Age/S: 68/F [address] [facility] Unit #: [id number] Loc: [place] [address] Phys: Bobby Roberts PRODUCTION CLERK Acct: [id number] Dis Date: Status: DIS IN PHONE #: [phone] Exam Date: 12/07/2018 0656 FAX #: [phone] Reason: Ileus? EXAMS: CPT CODE: [id number] XR ABDOMEN AP 1 V 45614 REASON FOR EXAM: Ileus?, GI BLEED, PEG TUBE PULLED OUT,SEVERE SEPSIS EXAM ORDER DATE: 12/07/2018 12:00 AM Attending Crispin: Bobby Roberts NP PROCEDURE: - XR ABDOMEN AP 1 V COMPARISON:12/06/2018 FINDINGS: One view of the abdomen obtained at 6:52 AM. Scattered fecal material is seen in the colon. No evidence of organomegaly or evidence of ascites. No evidence of free air. IMPRESSION: Persistent distention of small bowel loops suggestive of ileus. at 0719 Reported and signed by: Brayan Toro M.D. CC: Torsten Stein Caleb NP Technologist: Sachi Gonzalez(Ivan) Trnscrd Date/Time/By: 12/07/2018 (718) : By: GordoL Orig Print D/T: S: 12/07/2018 (5587) PAGE 1 Signed Report - XR ABDOMEN AP 1 [id number] 07:19:00 FAX: Ilan Holt MD [place]: St: ADM FAX: Bobby Meng NP [phone] Name: MOJGAN CUMMINGS [facility] : 1950 Age/S: 68/F [address] [facility] Unit #: [id number] Loc: [address] [address] Phys: Bobby Roberts NP Acct: [id number] Dis Date: Status: ADM IN PHONE #: [phone] Exam Date: 12/07/2018655 FAX #: [phone] Reason: Ileus? EXAMS: CPT CODE: [id number] XR ABDOMEN AP 1 V 01901 REASON FOR EXAM: Ileus?, GI BLEED, PEG TUBE PULLED OUT,SEVERE SEPSIS EXAM ORDER DATE: 12/07/2018 12:00 AM Att ending Crispin: Bobby Roberts NP PROCEDURE: - XR ABDOMEN AP 1 V COMPARISON:12/06/2018 FINDINGS: One view of the abdomen obtained at 6:52 AM. Scattered fecal material is seen in the colon. No ev idence of organomegaly or evidence of ascites. No evidence of free air. IMPRESSION: Persistent distention of small bowel loops suggestive of ileus. Electronically Signed by Crispin Toro on 9 at 0719 Reported and signed by: Brayan Toro M.D. CC: Ilan Stein; Bobby Roberts NP Technol ogist: Sachi Gonzalez(R) Trnscrd Date/Time/ By: 12/07/2018 (07) : By: Rodrigo Orig Print D/T: S: 12/07/2018 (0 182) PAGE 1 Signed Report - XR ABDOMEN AP 1 [id number] 07:19:00 FAX: Ilan Holt MD [place]: St: DIS FAX: Bobby Meng PRODUCTION CLERK [phone] Name: MOJGAN CUMMINGS [facility] : 1950 Age/S: 68/F [address] [facility] Unit #: [id number] Loc: [place] [address] Phys: Bobby Roberts NP Acct: [id number] Dis Date: Status: DIS IN PHONE #: [phone] Exam Date: 12/07/2018 0656 FAX #: [phone] Reason: Ileus? EXAMS: CPT CODE: [id number] XR ABDOMEN AP 1 V 49432 REASON FOR EXAM: Ileus?, GI BLEED, PEG TUBE PULLED OUT,SEVERE SEPSIS EXAM ORDER DATE: 12/07/2018 12:00 AM Att ending Crispin: Bobby Roberts NP PROCEDURE: - XR ABDOMEN AP 1 V COMPARISON:12/06/2018 FINDINGS: One view of the abdomen obtained at 6:52 AM. Scattered fecal material is seen in the colon. No ev idence of organomegaly or evidence of ascites. No evidence of free air. IMPRESSION: Persistent distention of small bowel loops suggestive of ileus. Electronically Signed by Crispin Toro on 9 at 0719 Reported and signed by: Brayan Toro M.D. CC: Ilan Stein; Bobby Roberts NP Technol ogist: Sachi Gonzalez(Ivan) Trnscrd Date/Time/ By: 12/07/2018 (0719) : By: [email or web address] Orig Print D/T: S: 12/07/2018 (0 722) PAGE 1 Signed Report - XR CHEST 1 [id number] 06:18:00 FAX: Ilan Holt MD [place]: St: DIS FAX: Charo Iraheta MD [phone] Name: MOJGAN CUMMINGS [facility] : 1950 Age/S: 68/F [address] [facility] Unit #: [id number] Loc: [place] [address] Phys: Charo Iraheta MD Acct: [id number] Dis Date: Status: DIS IN PHONE #: [phone] Exam Date: 12/07/2018518 FAX #: [phone] Reason: sob EXAMS: CPT CODE: [id number] XR CHEST 1 V 41884 REASON FOR EXAM: sob, GI BLEED, PEG TUBE PULLED OUT,SEVERE SEPSIS EXAM ORDER DATE: 12/07/2018 4:00 AM Ordering MLatrell: Charo Iraheta MD PROCEDURE: - XR CHEST 1 V COMPARISON: 12/06/2018 FINDINGS: Portable AP frontal view of the chest obtained at 5:20 AM shows diffuse airspace opacities. There is no ev idence of effusion. The heart size is minimally enlarged. Stable appearan ce of the tracheostomy tube. Pulmonary vasculatures are minimally congeste d. IMPRESSION: New development of diffuse airspace opacities saul ggestive of pulmonary edema with patchy atelectasis of the bases at 0618 Reported and signed by: Brayan Toro M.D. CC: Court Stein; Charo Iraheta MD Technologist: OCTAVIO CASTILLO lucero Darling Trnscrd Date/Time/By: 12/07/2018 (06) : By : Rodrigo Orig Print D/T: S: 12/07/2018 (0626) PAGE 1 Signed Report - XR CHEST 1 [id number] 06:18:00 FAX: Ilan Holt MD [place]: St: [facility] FAX: Charo Iraheta MD [phone] Name: MOJGAN CUMMINGS [facility] : 1950 Age/S: 68/F [address] [facility] Unit #: [id number] Loc: [address] [address] Phys: Charo Iraheta MD Acct: [id number] Dis Date: Status: ADM IN PHONE #: [phone] Exam Date: 12/07/2018518 FAX #: [phone] Reason: sob EXAMS: CPT CODE: [id number] XR CHEST 1 V 41655 REASON FOR EXAM: sob, GI BLEED, PEG TUBE PULLED OUT,SEVERE SEPSIS EXAM ORDER DATE: 12/07/2018 4:00 AM Ordering Crispin: Charo Iraheta MD PROCEDURE: - XR CHEST 1 V COMPARISON: 12/06/2018 FINDINGS: Portable AP frontal view of the chest obtained at 5:20 AM shows diffuse airspace opacities. There is no evidence of effusion. The heart size is minimally enlarged. Stable appearance of the tracheostomy tube. Pulmonary vasculatures are minimally congested. IMPRESSION: New development of diffuse airspace opacities suggestive of pulmonary edema with patchy atelectasis of the bases at 0618 Reported and signed by: Brayan Toro M.D. CC: Ilan Stein; Charo Iraheta MD Technologist: OCTAVIO Darling Trnscrd Date/Time/By: 12/07/2018 (617) : By: HarryVTL Orig Print D/T: S: 12/07/2018 (0696) PAGE 1 Signed Report - XR CHEST 1 [id number] 06:18:00 FAX: Ilan Holt MD [place]: St: DIS FAX: Charo Iraheta MD [phone] Name: MOJGAN CUMMINGS [facility] : 1950 Age/S: 68/F [address] [facility] Unit #: [id number] Loc: [place] [address] Phys: Charo Iraheta MD Acct: [id number] Dis Date: Status: DIS IN PHONE #: [phone] Exam Date: 12/07/2018518 FAX #: [phone] Reason: sob EXAMS: CPT CODE: [id number] XR CHEST 1 V 45889 REASON FOR EXAM: sob, GI BLEED, PEG TUBE PULLED OUT,SEVERE SEPSIS EXAM ORDER DATE: 12/07/2018 4:00 AM Ordering Crispin: Charo Iraheta MD PROCEDURE: - XR CHEST 1 V COMPARISON: 12/06/2018 FINDINGS: Portable AP frontal view of the chest obtained at 5:20 AM shows diffuse airspace opacities. There is no evidence of effusion. The heart size is minimally enlarged. Stable appearance of the tracheostomy tube. Pulmonary vasculatures are minimally congested. IMPRESSION: New development of diffuse airspace opacities suggestive of pulmonary edema with patchy atelectasis of the bases at 0618 Reported and signed by: Brayan Toro M.D. CC: Ilan Stein; Charo Iraheta MD Technologist: OCTAVIO Darling Trnscrd Date/Time/By: 12/07/2018 (617) : By: GordoL Orig Print D/T: S: 12/07/2018 (620) PAGE 1 Signed Report LACTIC [id number] 19:19:00* Test Item Value Reference Range Interpretation Comments LACTIC ACID (test code = LACT) 4.0 mmol/L 0.4-1.9 HH Results called to [id number] by V.LAB.HP 12/06/18 1918Critical results verified and read back by Nurse? Y LACTIC [id number] 15:54:00* Test Item Value Reference Range Interpretation Comments LACTIC ACID (test code = LACT) 4.0 mmol/L 0.4-1.9 HH Results called to [id number] by V.[email or web address] 12/06/18 1553Critical results verified and read back by Nurse? Y LACTIC [id number] 11:37:00* Test Item Value Reference Range Interpretation Comments LACTIC ACID (test code = LACT) 4.2 mmol/L 0.4-1.9 HH Results called to [id number] V.LAB.KN 12/06/18 1137Critical results verified and read back by Nurse? Y - XR ABDOMEN AP 1 [id number] 11:00:00 FAX: Ilan Holt MD [place]: B St: DIS FAX: Charo Iraheta MD [phone] Name: MOJGAN CUMMINGS [facility] : 1950 Age/S: 68/F [address] Unit #: [id number] Loc: [place] [address] Phys: Charo Iraheta MD Acct: [id number] Dis Date: Status: DIS IN PHONE #: [phone] Exam Date: 12/06/2018 1038 FAX #: [phone] Reason: DISTENDED ABD EXAMS: CPT CODE: [id number] XR ABDOMEN AP 1 V 83164 HISTORY: Distended abdomen. COMPARISON: Same day. Gastrostomy tube tip in the left upper quadrant. Moderate distention of small bowel is essentially unchanged and is diffuse. Femoral catheter on the right in the supra-acetabular location. 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 Air is still noted within the large bowel. IMPRESSION: Persistent moderate distention of the small bowel loops is unchanged with air still noted within the colon likely ileus but follow-up. at 1100 Reported and signed by: Clem Grissom M.D. CC: Ilan Stein; Charo Iraheta MD Technologist: JERAMIE LOPEZ RT(R); Nida Gunn RT(R) Trnwyrd Date/Time/By: 12/06/2018 (1100) : By: [email or web address] Orig Print D/T: S: 12/06/2018 (6778) PAGE 1 Signed Report - XR ABDOMEN AP 1 V 2018-12-06 11:00:00 FAX: Ilan Holt MD [place]: St: [facility] FAX: Charo Iraheta MD [phone] Name: MOJGAN CUMMINGS [facility] : 1950 Age/S: 68/F [address] Unit #: [id number] Loc: [address] [place] [address] Phys: Charo Iraheta MD Acct: [id number] Dis Date: Status: ADM IN PHONE #: [phone] Exam Date: 12/06/2018 1038 FAX #: [phone] Reason: DISTENDED ABD EXAMS: CPT CODE: [id number] XR ABDOMEN AP 1 V 92837 HISTORY: Distended abdomen. COMPARISON: Same day. Gastrostomy tube tip in the left upper quadrant. Moderate distention of small bowel is essentially unchanged and is diffuse. Femoral catheter on the right in the supra-acetabular location. 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 Air is still noted within the large bowel. IMPRESSION: Persistent moderate distention of the small bowel loops is unchanged with air still noted within the colon likely ileus but follow-up. at 1100 Reported and signed by: Clem Grissom M.D. CC: Ilan Stein; Charo Iraheta MD Technologist: JERAMIE LOPEZ RT(R); Nida Gunn RT(R) Trnwyrd Date/Time/By: 12/06/2018 (1100) : By: [email or web address] Orig Print D/T: S: 12/06/2018 (2833) PAGE 1 Signed Report - XR ABDOMEN AP 1 V 2018-12-06 11:00:00 FAX: Ilan Holt MD [place]: B St: DIS FAX: Charo Iraheta MD [phone] Name: MOJGAN CUMMINGS [facility] : 1950 Age/S: 68/F [address] Unit #: [id number] Loc: [place] [address] Phys: Charo Iraheta MD Acct: [id number] Dis Date: Status: DIS IN PHONE #: [phone] Exam Date: 12/06/2018 1038 FAX #: [phone] Reason: DISTENDED ABD EXAMS: CPT CODE: [id number] XR ABDOMEN AP 1 V 39699 HISTORY: Distended abdomen. COMPARISON: Same day. Gastrostomy tube tip in the left upper quadrant. Moderate distention of small bowel is essentially unchanged and is diffuse. Femoral catheter on the right in the supra-acetabular location. 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 Air is still noted within the large bowel. IMPRESSION: Persistent moderate distention of the small bowel loops is unchanged with air still noted within the colon likely ileus but follow-up. at 1100 Reported and signed by: Clem Grissom M.D. CC: Ilan Stein; Charo Iraheta MD Technologist: JERAMIE LOPEZ RT(R); Nida Gunn RT(R) Trnscrd Date/Time/By: 12/06/2018 (1100) : By: [email or web address] Orig Print D/T: S: 12/06/2018 (1629) PAGE 1 Signed Report - XR ABDOMEN AP 1 V 2018-12-06 06:33:00 FAX: Ilan Holt MD [place]: B St: DIS FAX: Charo Iraheta MD [phone] Name: MOJGAN CUMMINGS [facility] : 1950 Age/S: 68/F [address] Unit #: [id number] Loc: [place] [address] Phys: Charo Iraheta MD Acct: [id number] Dis Date: Status: DIS IN PHONE #: [phone] Exam Date: 12/06/2018520 FAX #: [phone] Reason: FOLLOW UP ON PREVIOUS DAYS FINDINGS EXAMS: CPT CODE: [id number] XR ABDOMEN AP 1 V 22018 REASON FOR EXAM: FOLLOW UP ON PREVIOUS DAYS FINDINGS EXAM ORDER DATE: 12/06/2018 5:00 AM Attending Crispin: Charo Iraheta MD PROCEDURE: - XR ABDOMEN AP 1 V COMPARISON:12/05/2018 FINDINGS: One view of the abdomen obtained at 5:24 AM. Scattered fecal material is seen in the colon. No evidence of organomegaly or evidence of ascites. No evidence of free air. IMPRESSION: Minimal gaseous distention of small bowel loops suggestive of ileus. at 0633 Reported and signed by: Brayan Toro M.D. CC: Ilan Granger; Charo Iraheta MD Technologist: OCTAVIO Darling Trnscrd Date/Time/By: 12/06/2018 (0633 ) : By: [email or web address] Orig Print D/T: S: 12/06/2018 (0636) PAGE 1 Signed Report - XR ABDOMEN AP 1 [id number] 06:33:00 FAX: Ilan Holt MD [place]: B St: [facility] FAX: Charo Iraheta MD [phone] Name: MOJGAN CUMMINGS [facility] : 1950 Age/S: 68/F [address] [facility] Unit #: [id number] [facility] [place] [address] Phys: Charo Iraheta MD Acct: [id number] Dis Date: Status: ADM IN PHONE #: [phone] Exam Date: 12/06/2018520 FAX #: [phone] Reason: FOLLOW UP ON PREVIOUS DAYS FINDINGS EXAMS: CPT CODE: [id number] XR ABDOMEN AP 1 V 42458 REASON FOR EXAM: FOLLOW UP ON PREVIOUS DAYS FINDINGS EXAM ORDER DATE: 12/06/2018 5:00 AM Attending Crispin: Charo Iraheta MD PROCEDURE: - XR ABDOMEN AP 1 V COMPARISON:12/05/2018 FINDINGS: One view of the abdomen obtained at 5:24 AM. Scattered fecal material is seen in the colon. No evidence of organomegaly or evidence of ascites. No evidence of free air. IMPRESSION: Minimal gaseous distention of small bowel loops suggestive of ileus. at 0633 Reported and signed by: Brayan Toro M.D. CC: Ilan Granger; Charo Iraheta MD Technologist: OCTAVIO Darling Trnscrd Date/Time/By: 12/06/2018 (06 ) : By: [email or web address] Orig Print D/T: S: 12/06/2018 (0620) PAGE 1 Signed Report - XR ABDOMEN AP 1 [id number] 06:33:00 FAX: Ilan Holt MD [place]: B St: DIS FAX: Charo Iraheta MD [phone] Name: MOJGAN CUMMINGS [facility] : 1950 Age/S: 68/F [address] [facility] Unit #: [id number] Loc: [place] [address] Phys: Charo Iraheta MD Acct: [id number] Dis Date: Status: DIS IN PHONE #: [phone] Exam Date: 12/06/2018520 FAX #: [phone] Reason: FOLLOW UP ON PREVIOUS DAYS FINDINGS EXAMS: CPT CODE: [id number] XR ABDOMEN AP 1 V 96735 REASON FOR EXAM: FOLLOW UP ON PREVIOUS DAYS FINDINGS EXAM ORDER DATE: 12/06/2018 5:00 AM Attending Crispin: Charo Iraheta MD PROCEDURE: - XR ABDOMEN AP 1 V COMPARISON:12/05/2018 FINDINGS: One view of the abdomen obtained at 5:24 AM. Scattered fecal material is seen in the colon. No evidence of organomegaly or evidence of ascites. No evidence of free air. IMPRESSION: Minimal gaseous distention of small bowel loops suggestive of ileus. at 0633 Reported and signed by: Brayan Toro M.D. CC: Ilan Granger; Charo Iraheta MD Technologist: OCTAVIO Darling Trnscrd Date/Time/By: 12/06/2018 (06 ) : By: HarryVTL Orig Print D/T: S: 12/06/2018 (0652) PAGE 1 Signed Report - XR CHEST 1 [id number] 06:32:00 FAX: Ilan Holt MD [place]: St: DIS FAX: Charo Iraheta MD [phone] Name: MOJGAN CUMMINGS [facility] : 1950 Age/S: 68/F [address] Unit #: [id number] Loc: [place] [address] Phys: Charo Iraheta MD Acct: [id number] Dis Date: Status: DIS IN PHONE #: [phone] Exam Date: 12/06/2018520 FAX #: [phone] Reason: sob EXAMS: CPT CODE: [id number] XR CHEST 1 V 37364 REASON FOR EXAM: sob EXAM ORDER DATE: 12/06/2018 4:00 AM Ordering Crispin: Charo Iraheta MD PROCEDURE: - XR CHEST 1 V COMPARISON: 12/05/2018 FINDINGS: Portable AP frontal view of the chest obtained at 5:22 AM shows clear lungs without evidence of consolidation. There is no evidence of effusion. The heart size is minimally enlarged. Stable appearance of the tracheostomy tube. Pulmonary vasculatures are unremarkable. IMPRESSION: No active disease. at 0632 Reported and signed by: Brayan Toro M.D. CC: Ilan Stein; Charo Iraheta MD Technologist: OCTAVIO Darling Trnscrd Date/Time/By: 12/06/2018 (0632) : By: [email or web address] Orig Print D/T: S: 12/06/2018 (0612) PAGE 1 Signed Report - XR CHEST 1 [id number] 06:32:00 FAX: Ilan Holt MD [place]: St: [facility] FAX: Charo Iraheta MD [phone] Name: MOJGAN CUMMINGS [facility] : 1950 Age/S: 68/F [address] [facility] Unit #: [id number] Loc: [address] [address] Phys: Charo Iraheta MD Acct: [id number] Dis Date: Status: ADM IN PHONE #: [phone] Exam Date: 12/06/2018520 FAX #: [phone] Reason: sob EXAMS: CPT CODE: [id number] XR CHEST 1 V 14293 REASON FOR EXAM: sob EXAM ORDER DATE: 12/06 4:00 AM Ordering Crispin: Charo Iraheta MD PROCE DURE: - XR CHEST 1 V COMPARISON: 12/05/2018 FINDINGS : Portable AP frontal view of the chest obtained at 5:22 AM shows clear l ungs without evidence of consolidation. There is no evidence of effusion. The heart size is minimally enlarged. Stable appearance of the tracheosto my tube. Pulmonary vasculatures are unremarkable. IMPRESS ION: No active disease. Electronically Signed by Cris[place] Toro on at 0632 Reported and signed by: Brayan Toro M.D. CC: Ilan Stein; Charo Iraheta MD chnologist: OCTAVIO Darling Trnscrd Date/ Time/By: 12/06/2018 (0632) : By: [email or web address] Orig Print D/T: S: 12/07/19 (0671) PAGE 1 Signed Report - XR CHEST 1 [id number] 06:32:00 FAX: Ilan Holt MD [place]: St: [facility] FAX: Charo Iraheta MD [phone] Name: MOJGAN CUMMINGS [facility] : 1950 Age/S: 68/F [address] [facility] Unit #: [id number] Loc: [place] [address] Phys: Charo Iraheta MD Acct: [id number] Dis Date: Status: DIS IN PHONE #: [phone] Exam Date: 12/06/2018520 FAX #: [phone] Reason: sob EXAMS: CPT CODE: [id number] XR CHEST 1 V 68032 REASON FOR EXAM: sob EXAM ORDER DATE: 12/06 4:00 AM Ordering Crispin: Charo Iraheta MD PROCE DURE: - XR CHEST 1 V COMPARISON: 12/05/2018 FINDINGS : Portable AP frontal view of the chest obtained at 5:22 AM shows clear l ungs without evidence of consolidation. There is no evidence of effusion. The heart size is minimally enlarged. Stable appearance of the tracheosto my tube. Pulmonary vasculatures are unremarkable. IMPRESS ION: No active disease. Electronically Signed by Crispin Toro on at 0632 Reported and signed by: Brayan Toro M.D. CC: Ilan Stein; Charo Iraheta MD chnologist: OCTAVIO Darling Trnscrd Date/ Time/By: 12/06/2018 (0632) : By: Rodrigo Orig Print D/T: S: 12/07/19 19 (0661) PAGE 1 Signed Report CBC W/MANUAL [id number] 06:22:00* Test Item Value Reference Range Interpretation Comments WHITE BLOOD CELL (test code = WBC) 11.9 K/mm3 4.5-12.5 N RED BLOOD CELL (test code = RBC) 2.88 mill/mm3 3.7-5.2 L HEMOGLOBIN (test code = HGB) 8.1 gram/dL 11.5-15.5 L HEMATOCRIT (test code = HCT) 26.1 % 36.0-46.0 L MEAN CELL VOLUME (test code = MCV) 90.6 fL 80-98 N MEAN CELL HGB (test code = MCH) 28.1 picogram 27.0-33.0 N MEAN CELL HGB CONCETRATION (test code = MCHC) 31.0 gram/dL 33.0-36. 0 L RED CELL DISTRIBUTION WIDTH (test code = RDW) 16.3 % 11.6-16. 2 H RED CELL DISTRIBUTION WIDTH SD (test code = RDW-SD) 52.2 fL 37 .0-51.0 H PLATELET COUNT (test code = PLT) 175 K/mm3 150-450 N MEAN PLATELET VOLUME (test code = MPV) 13.6 fL 6.7-11.0 H IMMATURE GRANULOCYTE % (test code = IG%) 1.8 % 0.0-5.0 N NUCLEATED RBC % (test code = NRBC%) 0.3 % 0-0 H NEUTROPHIL # (test code = NT#) 9.64 K/mm3 1.8-7.7 H IMMATURE GRANULOCYTE # (test code = IG#) 0.21 x10 3/uL 0-0.03 H LYMPHOCYTE # (test code = LY#) 1.37 K/mm3 1.0-5.0 N MONOCYTE # (test code = MO#) 0.66 K/mm3 0-0.8 N EOSINOPHIL # (test code = EO#) 0.05 K/mm3 0.0-0.5 N BASOPHIL # (test code = BA#) 0.01 K/mm3 0.0-0.2 N NUCLEATED RBC # (test code = NRBC#) 0.03 K/mm3 0.0-0.1 N MANUAL DIFF REQUIRED (test code = MDIFF) YES STAIN ACCEPTABILITY (test code = STN ACCEPTABLE) STAIN ACCEPTABLE TOTAL CELLS COUNTED (test code = TCC) 114 #CELLS SEGMENTED NEUTROPHILS (test code = SEG) 85.1 % 39-69 H BAND NEUTROPHIL (test code = BAND) 0 % 0-10 N LYMPHOCYTE (test code = LYMPH) 11.4 % 25-55 L REACTIVE LYMPH (test code = RELYMPH) 0 % MONOCYTE (test code = MON) 0.9 % 0-10 N EOSINOPHIL (test code = EOS) 2.6 % 0.0-5.0 N BASOPHIL (test code = BASO) 0 % 0-1.0 N METAMYELOCYTE (test code = META) 0 % 0-0 N MYELOCYTE (test code = MYELO) 0 % 0.0-0.0 N PROMYELOCYTE (test code = PROM) 0 % 0-0 N POIKILOCYTOSIS (test code = POIK) 2+ ELLIPTOCYTES (test code = ELL) 1+ EZRA CELLS (test code = EZRA) 2+ NONE PLATELET ESTIMATE (test code = PLTEST) ADEQUATE PLATELET MORPHOLOGY (test code = PLTMORPH) NORMAL IMMATURE FORMS (test code = IMMAT) 0 % BASIC METABOLIC [id number] 06:04:00* Test Item Value Reference Range Interpretation Comments SODIUM (test code = NA) 136 mmol/L 136-145 RESU LT VERIFIED BY REPEAT ANALYSIS POTASSIUM (test code = K) 4.6 mmol/L 3.5-5.1 N CHLORIDE (test code = CL) 107.0 mmol/L 98-107 N CARBON DIOXIDE (test code = CO2) 20.0 mmol/L 21-32 L ANION GAP (test code = GAP) 13.6 10-20 N GLUCOSE (test code = GLU) 159 mg/dL 74-106 H BLOOD UREA NITROGEN (test code = BUN) 55 mg/dL 7-18 H RESULT VERIFIED BY REPEAT ANALYSIS GLOMERULAR FILTRATION RATE (test code = GFR) 49 mL/min >=60 Estimated GFR by using Modified MDRD formula.Chronic kidney disease is defined as either kidney damageor GFR <60 mL/min/1.73 m2 for >3 months. CREATININE (test code = CREAT) 1.10 mg/dL 0.55-1.02 H Note change in reference range due to change in reagent. BUN/CREATININE RATIO (test code = BUN/CREA) 50.0 10-20 H CALCIUM (test code = CA) 6.7 mg/dL 8.5-10.1 L [id number] 06:04:00* Test Item Value Reference Range Interpretation Comments PHOSPHORUS (test code = PHOS) 2.1 mg/dL 2.5-4.9 L [id number] 06:04:00* Test Item Value Reference Range Interpretation Comments MAGNESIUM (test code = MAG) 1.2 mg/dL 1.8-2.4 L [id number] 06:04:00* Test Item Value Reference Range Interpretation Comments TROPONIN-I (test code = TROPI) 0.100 ng/mL 0-0.045 Results called to [email or web address] by [email or web address] 12/06/18 0603Critical results verified and read back by Nurse? Y CBC W/MANUAL [id number] 05:38:00* Test Item Value Reference Range Interpretation Comments WHITE BLOOD CELL (test code = WBC) 11.9 K/mm3 4.5-12.5 N RED BLOOD CELL (test code = RBC) 2.88 mill/mm3 3.7-5.2 L HEMOGLOBIN (test code = HGB) 8.1 gram/dL 11.5-15.5 L HEMATOCRIT (test code = HCT) 26.1 % 36.0-46.0 L MEAN CELL VOLUME (test code = MCV) 90.6 fL 80-98 N MEAN CELL HGB (test code = MCH) 28.1 picogram 27.0-33.0 N MEAN CELL HGB CONCETRATION (test code = MCHC) 31.0 gram/dL 33.0-36. 0 L RED CELL DISTRIBUTION WIDTH (test code = RDW) 16.3 % 11.6-16. 2 H RED CELL DISTRIBUTION WIDTH SD (test code = RDW-SD) 52.2 fL 37 .0-51.0 H PLATELET COUNT (test code = PLT) 175 K/mm3 150-450 N MEAN PLATELET VOLUME (test code = MPV) 13.6 fL 6.7-11.0 H IMMATURE GRANULOCYTE % (test code = IG%) 1.8 % 0.0-5.0 N NUCLEATED RBC % (test code = NRBC%) 0.3 % 0-0 H NEUTROPHIL # (test code = NT#) 9.64 K/mm3 1.8-7.7 H IMMATURE GRANULOCYTE # (test code = IG#) 0.21 x10 3/uL 0-0.03 H LYMPHOCYTE # (test code = LY#) 1.37 K/mm3 1.0-5.0 N MONOCYTE # (test code = MO#) 0.66 K/mm3 0-0.8 N EOSINOPHIL # (test code = EO#) 0.05 K/mm3 0.0-0.5 N BASOPHIL # (test code = BA#) 0.01 K/mm3 0.0-0.2 N NUCLEATED RBC # (test code = NRBC#) 0.03 K/mm3 0.0-0.1 N MANUAL DIFF REQUIRED (test code = MDIFF) YES STAIN ACCEPTABILITY (test code = STN ACCEPTABLE) TOTAL CELLS COUNTED (test code = TCC) #CELLS SEGMENTED NEUTROPHILS (test code = SEG) % 39-69 LYMPHOCYTE (test code = LYMPH) % 25-55 MONOCYTE (test code = MON) % 0-10 EOSINOPHIL (test code = EOS) % 0.0-5.0 CABOT RINGS (test code = CAB) MORPHOLOGY COMMENT (test code = MOC) PLATELET ESTIMATE (test code = PLTEST) PLATELET MORPHOLOGY (test code = PLTMORPH) CBC W/MANUAL [id number] 05:38:00* Test Item Value Reference Range Interpretation Comments WHITE BLOOD CELL (test code = WBC) 11.9 K/mm3 4.5-12.5 N RED BLOOD CELL (test code = RBC) 2.88 mill/mm3 3.7-5.2 L HEMOGLOBIN (test code = HGB) 8.1 gram/dL 11.5-15.5 L HEMATOCRIT (test code = HCT) 26.1 % 36.0-46.0 L MEAN CELL VOLUME (test code = MCV) 90.6 fL 80-98 N MEAN CELL HGB (test code = MCH) 28.1 picogram 27.0-33.0 N MEAN CELL HGB CONCETRATION (test code = MCHC) 31.0 gram/dL 33.0-36. 0 L RED CELL DISTRIBUTION WIDTH (test code = RDW) 16.3 % 11.6-16. 2 H RED CELL DISTRIBUTION WIDTH SD (test code = RDW-SD) 52.2 fL 37 .0-51.0 H PLATELET COUNT (test code = PLT) 175 K/mm3 150-450 N MEAN PLATELET VOLUME (test code = MPV) 13.6 fL 6.7-11.0 H IMMATURE GRANULOCYTE % (test code = IG%) 1.8 % 0.0-5.0 N NUCLEATED RBC % (test code = NRBC%) 0.3 % 0-0 H NEUTROPHIL # (test code = NT#) 9.64 K/mm3 1.8-7.7 H IMMATURE GRANULOCYTE # (test code = IG#) 0.21 x10 3/uL 0-0.03 H LYMPHOCYTE # (test code = LY#) 1.37 K/mm3 1.0-5.0 N MONOCYTE # (test code = MO#) 0.66 K/mm3 0-0.8 N EOSINOPHIL # (test code = EO#) 0.05 K/mm3 0.0-0.5 N BASOPHIL # (test code = BA#) 0.01 K/mm3 0.0-0.2 N NUCLEATED RBC # (test code = NRBC#) 0.03 K/mm3 0.0-0.1 N MANUAL DIFF REQUIRED (test code = MDIFF) YES STAIN ACCEPTABILITY (test code = STN ACCEPTABLE) TOTAL CELLS COUNTED (test code = TCC) #CELLS SEGMENTED NEUTROPHILS (test code = SEG) % 39-69 LYMPHOCYTE (test code = LYMPH) % 25-55 MONOCYTE (test code = MON) % 0-10 EOSINOPHIL (test code = EOS) % 0.0-5.0 MORPHOLOGY COMMENT (test code = MOC) PLATELET ESTIMATE (test code = PLTEST) PLATELET MORPHOLOGY (test code = PLTMORPH) CBC W/MANUAL [id number] 05:38:00* Test Item Value Reference Range Interpretation Comments WHITE BLOOD CELL (test code = WBC) 11.9 K/mm3 4.5-12.5 N RED BLOOD CELL (test code = RBC) 2.88 mill/mm3 3.7-5.2 L HEMOGLOBIN (test code = HGB) 8.1 gram/dL 11.5-15.5 L HEMATOCRIT (test code = HCT) 26.1 % 36.0-46.0 L MEAN CELL VOLUME (test code = MCV) 90.6 fL 80-98 N MEAN CELL HGB (test code = MCH) 28.1 picogram 27.0-33.0 N MEAN CELL HGB CONCETRATION (test code = MCHC) 31.0 gram/dL 33.0-36. 0 L RED CELL DISTRIBUTION WIDTH (test code = RDW) 16.3 % 11.6-16. 2 H RED CELL DISTRIBUTION WIDTH SD (test code = RDW-SD) 52.2 fL 37 .0-51.0 H PLATELET COUNT (test code = PLT) 175 K/mm3 150-450 N MEAN PLATELET VOLUME (test code = MPV) 13.6 fL 6.7-11.0 H IMMATURE GRANULOCYTE % (test code = IG%) 1.8 % 0.0-5.0 N NUCLEATED RBC % (test code = NRBC%) 0.3 % 0-0 H NEUTROPHIL # (test code = NT#) 9.64 K/mm3 1.8-7.7 H IMMATURE GRANULOCYTE # (test code = IG#) 0.21 x10 3/uL 0-0.03 H LYMPHOCYTE # (test code = LY#) 1.37 K/mm3 1.0-5.0 N MONOCYTE # (test code = MO#) 0.66 K/mm3 0-0.8 N EOSINOPHIL # (test code = EO#) 0.05 K/mm3 0.0-0.5 N BASOPHIL # (test code = BA#) 0.01 K/mm3 0.0-0.2 N NUCLEATED RBC # (test code = NRBC#) 0.03 K/mm3 0.0-0.1 N MANUAL DIFF REQUIRED (test code = MDIFF) YES STAIN ACCEPTABILITY (test code = STN ACCEPTABLE) TOTAL CELLS COUNTED (test code = TCC) #CELLS SEGMENTED NEUTROPHILS (test code = SEG) % 39-69 LYMPHOCYTE (test code = LYMPH) % 25-55 MONOCYTE (test code = MON) % 0-10 MORPHOLOGY COMMENT (test code = MOC) PLATELET ESTIMATE (test code = PLTEST) PLATELET MORPHOLOGY (test code = PLTMORPH) CBC W/MANUAL [id number] 05:37:00* Test Item Value Reference Range Interpretation Comments WHITE BLOOD CELL (test code = WBC) 11.9 K/mm3 4.5-12.5 N RED BLOOD CELL (test code = RBC) 2.88 mill/mm3 3.7-5.2 L HEMOGLOBIN (test code = HGB) 8.1 gram/dL 11.5-15.5 L HEMATOCRIT (test code = HCT) 26.1 % 36.0-46.0 L MEAN CELL VOLUME (test code = MCV) 90.6 fL 80-98 N MEAN CELL HGB (test code = MCH) 28.1 picogram 27.0-33.0 N MEAN CELL HGB CONCETRATION (test code = MCHC) 31.0 gram/dL 33.0-36. 0 L RED CELL DISTRIBUTION WIDTH (test code = RDW) 16.3 % 11.6-16. 2 H RED CELL DISTRIBUTION WIDTH SD (test code = RDW-SD) 52.2 fL 37 .0-51.0 H PLATELET COUNT (test code = PLT) 175 K/mm3 150-450 N MEAN PLATELET VOLUME (test code = MPV) 13.6 fL 6.7-11.0 H IMMATURE GRANULOCYTE % (test code = IG%) 1.8 % 0.0-5.0 N NUCLEATED RBC % (test code = NRBC%) 0.3 % 0-0 H NEUTROPHIL # (test code = NT#) 9.64 K/mm3 1.8-7.7 H IMMATURE GRANULOCYTE # (test code = IG#) 0.21 x10 3/uL 0-0.03 H LYMPHOCYTE # (test code = LY#) 1.37 K/mm3 1.0-5.0 N MONOCYTE # (test code = MO#) 0.66 K/mm3 0-0.8 N EOSINOPHIL # (test code = EO#) 0.05 K/mm3 0.0-0.5 N BASOPHIL # (test code = BA#) 0.01 K/mm3 0.0-0.2 N NUCLEATED RBC # (test code = NRBC#) 0.03 K/mm3 0.0-0.1 N MANUAL DIFF REQUIRED (test code = MDIFF) YES STAIN ACCEPTABILITY (test code = STN ACCEPTABLE) TOTAL CELLS COUNTED (test code = TCC) #CELLS SEGMENTED NEUTROPHILS (test code = SEG) % 39-69 LYMPHOCYTE (test code = LYMPH) % 25-55 MONOCYTE (test code = MON) % 0-10 EOSINOPHIL (test code = EOS) % 0.0-5.0 CABOT RINGS (test code = CAB) MORPHOLOGY COMMENT (test code = MOC) PLATELET ESTIMATE (test code = PLTEST) PLATELET MORPHOLOGY (test code = PLTMORPH) CBC W/MANUAL [id number] 05:37:00* Test Item Value Reference Range Interpretation Comments WHITE BLOOD CELL (test code = WBC) 11.9 K/mm3 4.5-12.5 N RED BLOOD CELL (test code = RBC) 2.88 mill/mm3 3.7-5.2 L HEMOGLOBIN (test code = HGB) 8.1 gram/dL 11.5-15.5 L HEMATOCRIT (test code = HCT) 26.1 % 36.0-46.0 L MEAN CELL VOLUME (test code = MCV) 90.6 fL 80-98 N MEAN CELL HGB (test code = MCH) 28.1 picogram 27.0-33.0 N MEAN CELL HGB CONCETRATION (test code = MCHC) 31.0 gram/dL 33.0-36. 0 L RED CELL DISTRIBUTION WIDTH (test code = RDW) 16.3 % 11.6-16. 2 H RED CELL DISTRIBUTION WIDTH SD (test code = RDW-SD) 52.2 fL 37 .0-51.0 H PLATELET COUNT (test code = PLT) 175 K/mm3 150-450 N MEAN PLATELET VOLUME (test code = MPV) 13.6 fL 6.7-11.0 H IMMATURE GRANULOCYTE % (test code = IG%) 1.8 % 0.0-5.0 N NUCLEATED RBC % (test code = NRBC%) 0.3 % 0-0 H NEUTROPHIL # (test code = NT#) 9.64 K/mm3 1.8-7.7 H IMMATURE GRANULOCYTE # (test code = IG#) 0.21 x10 3/uL 0-0.03 H LYMPHOCYTE # (test code = LY#) 1.37 K/mm3 1.0-5.0 N MONOCYTE # (test code = MO#) 0.66 K/mm3 0-0.8 N EOSINOPHIL # (test code = EO#) 0.05 K/mm3 0.0-0.5 N BASOPHIL # (test code = BA#) 0.01 K/mm3 0.0-0.2 N NUCLEATED RBC # (test code = NRBC#) 0.03 K/mm3 0.0-0.1 N MANUAL DIFF REQUIRED (test code = MDIFF) YES STAIN ACCEPTABILITY (test code = STN ACCEPTABLE) TOTAL CELLS COUNTED (test code = TCC) #CELLS SEGMENTED NEUTROPHILS (test code = SEG) % 39-69 LYMPHOCYTE (test code = LYMPH) % 25-55 MONOCYTE (test code = MON) % 0-10 EOSINOPHIL (test code = EOS) % 0.0-5.0 CABOT RINGS (test code = CAB) MORPHOLOGY COMMENT (test code = MOC) PLATELET ESTIMATE (test code = PLTEST) PLATELET MORPHOLOGY (test code = PLTMORPH) GENTAMYCIN [id number] 20:40:00* Test Item Value Reference Range Interpretation Comments GENTAMYCIN PEAK (test code = GENTP) 6.3 ug/mL 5.0-10.0 N [id number] 11:32:00* Test Item Value Reference Range Interpretation Comments TROPONIN-I (test code = TROPI) <0.015 ng/mL 0-0.045 N SPECIMEN COMMENTS: FOR SPECIMEN ISSUES CALL MARIA M [id number] XR ABDOMEN AP 1 V 2018-12-05 08:57:00 FAX: Ilan Holt MD [place]: B St: DIS FAX: Charo Iraheta MD [phone] Name: MOJGAN CUMMINGS [facility] : 1950 Age/S: 68/F [address] Unit #: [id number] Loc: [facility] [place] [address] Phys: Charo Iraheta MD Acct: [id number] Dis Date: Status: DIS IN PHONE #: [phone] Exam Date: 12/05/2018 0809 FAX #: [phone] Reason: stomach distension EXAMS: CPT CODE: [id number] XR ABDOMEN AP 1 V 12630 HISTORY: Stomach distention. COMPARISON: CT abdomen and pelvis from December 03, 2017. Moderate distention of the small bowel loops noted. Correlate for partial or incomplete small bowel obstruction. Gastrostomy tube in the mid upper abdomen. Air is noted within the colon. The pelvis is not completely included. No pathologic calcifications. IMPRESSION: Moderate distention of small bowel loops suspicious for partial or incomplete obstruction. E lectronically Signed by Crispin Grissom on 12/05/2018 at 0857 Reported and signed by: Clem Grissom M.D. CC: Ilan Stein; Charo Iraheta MD Technologist: RT DARRYL(R); STUDENT TECHNOLOGIST Trnscrd Date/Time/By: 12/05/2018 (0 857) : By: [email or web address] Orig Print D/T: S: 12/05/2018 (0901) PAGE 1 Signed Report - XR ABDOMEN AP 1 [id number] 08:57:00 FAX: Ilan Holt MD [place]: St: [facility] FAX: Charo Iraheta MD [phone] Name: MOJGAN CUMMINGS [facility] : 1950 Age/S: 68/F [address] Unit #: [id number] Loc: V.[address] [place] [address] Phys: Charo Iraheta MD Acct: [id number] Dis Date: Status: ADM IN PHONE #: [phone] Exam Date: 12/05/201809 FAX #: [phone] Reason: stomach distension EXAMS: CPT CODE: [id number] XR ABDOMEN AP 1 V 77611 HISTORY: Stomach distention. COMPARISON: CT abdomen and pelvis from December 03, 2017. Moderate distention of the small bowel loops noted. Correlate for partial or incomplete small bowel obstruction. Gastrostomy tube in the mid upper abdomen. Air is noted within the colon. The pelvis is not completely included. No pathologic calcifications. IMPRESSION: Moderate distention of small bowel loops suspicious for partial or incomplete obstruction. E lectronically Signed by Crispin Grissom on 12/05/2018 at 0857 Reported and signed by: Clem Grissom M.D. CC: Ilan Stein; Charo Iraheta MD Technologist: RT DARRYL(R); STUDENT TECHNOLOGIST Trnscrd Date/Time/By: 12/05/2018 (0 857) : By: [email or web address] Orig Print D/T: S: 12/05/2018 (0987) PAGE 1 Signed Report - XR ABDOMEN AP 1 [id number] 08:57:00 FAX: Ilan Holt MD [place]: B St: DIS FAX: Charo Iraheta MD [phone] Name: MOJGAN CUMMINGS [facility] : 1950 Age/S: 68/F [address] [facility] Unit #: [id number] Loc: [facility] [place] [address] Phys: Charo Iraheta MD Acct: [id number] Dis Date: Status: DIS IN PHONE #: [phone] Exam Date: 12/05/2018 0809 FAX #: [phone] Reason: stomach distension EXAMS: CPT CODE: [id number] XR ABDOMEN AP 1 V 71363 HISTORY: Stomach distention. COMPARISON: CT abdomen and pelvis from December 03, 2017. Moderate distention of the small bowel loops noted. Correlate for partial or incomplete small bowel obstruction. Gastrostomy tube in the mid upper abdomen. Air is noted within the colon. The pelvis is not completely included. No pathologic calcifications. IMPRESSION: Moderate distention of small bowel loops suspicious for partial or incomplete obstruction. E lectronically Signed by Crispin Grissom on 12/05/2018 at 0857 Reported and signed by: Clem Grissom M.D. CC: Ilan Stein; Charo Iraheta MD Technologist: RT DARRYL(R); STUDENT TECHNOLOGIST Trnscrd Date/Time/By: 12/05/2018 (0 857) : By: [email or web address] Orig Print D/T: S: 12/05/2018 (0971) PAGE 1 Signed Report - XR CHEST 1 [id number] 06:44:00 FAX: Ilan Holt MD [place]: St: DIS FAX: Ashley Juarez NP [phone] Name: MOJGAN CUMMINGS [facility] : 1950 Age/S: 68/F [address] [facility] Unit #: [id number] Loc: [place] [address] Phys: Ashley Hendrix NP Acct: [id number] Dis Date: Status: DIS IN PHONE #: [phone] Exam Date: 12/05/2018526 FAX #: [phone] Reason: respiratory failure, aspiration EXAMS: CPT CODE: [id number] XR CHEST 1 V 24806 REASON FOR EXAM: respiratory failure, aspiration EXAM ORDER DATE: 12/05/2018 5:00 AM Ordering Crispin: Ashley Hendrix NP PROCEDURE: - XR CHEST 1 V COMPARISON: 12/04/2018 FINDINGS: Portable AP frontal view of the chest obtained at 5:28 AM shows clear lungs without evidence of consolidation. There is no evidence of effusion. The heart size is minimally enlarged. Stable appearance of the tracheostomy tube. Pulmonary vasculatures are unremarkable. IMPRESSION: 1. No active disease in the chest 2. Moderate gaseous distention of the stomach. Recommend correlation with abdominal x-ray at 0658 Reported and signed by: Brayan Toro M.D. CC: Ilan Stein; Ashley Hendrix NP Technologist: OCTAVIO Darling Trnscrd Date/Time/By: 12/05/2018 (0644) : By: GordoL Orig Print D/T: S: 12/05/2018 (0656) PAGE 1 Signed Report - XR CHEST 1 [id number] 06:44:00 FAX: Ilan Holt MD [place]: B St: ADM FAX: Ashley Juarez NP [phone] Name: MOJGAN CUMMINGS [facility] : 1950 Age/S: 68/F [address] [facility] Unit #: [id number] Loc: V[address] [place] [address] Phys: Ashley Hendrix NP Acct: [id number] Dis Date: Status: ADM IN PHONE #: [phone] Exam Date: 12/05/2018526 FAX #: [phone] Reason: respiratory failure, aspiration EXAMS: CPT CODE: [id number] XR CHEST 1 V 37725 REASON FOR EXAM: respiratory failure, aspiration EXAM ORDER DATE: 12/05/2018 5:00 AM Ordering Crispin: Ashley abrams NP PROCEDURE: - XR CHEST 1 V COMPARISON: FINDINGS: Portable AP frontal view of the chest obtained at 5:28 AM shows clear lungs without evidence of consolidation. There is n o evidence of effusion. The heart size is minimally enlarged. Stable appearance of the tracheostomy tube. Pulmonary vasculatures are unremark able. IMPRESSION: 1. No active disease in the chest 2. Moderate gaseous distention of the stomach. Recommend correlation with abdominal x-ray at 0644 Reported and signed by: Brayan Toro M.D. CC: Ilan Stein; Ashley Hendrix NP Te chnologist: OCTAVIO Darling Trnscrd Date/ Time/By: 12/05/2018 (0644) : By: GordoL Orig Print D/T: S: 12/06/19 (0656) PAGE 1 Signed Report - XR CHEST 1 [id number] 06:44:00 FAX: Ilan Holt MD [place]: B St: DIS FAX: Ashley Juarez NP [phone] Name: MOJGAN CUMMINGS [facility] : 1950 Age/S: 68/F [address] [facility] Unit #: [id number] Loc: [place] [address] Phys: Ashley Hendrix NP Acct: [id number] Dis Date: Status: DIS IN PHONE #: [phone] Exam Date: 12/05/2018526 FAX #: [phone] Reason: respiratory failure, aspiration EXAMS: CPT CODE: [id number] XR CHEST 1 V 75272 REASON FOR EXAM: respiratory failure, aspiration EXAM ORDER DATE: 12/05/2018 5:00 AM Ordering Crispin: Ashley S himel, PRODUCTION CLERK PROCEDURE: - XR CHEST 1 V COMPARISON: FINDINGS: Portable AP frontal view of the chest obtained at 5:28 AM shows clear lungs without evidence of consolidation. There is n o evidence of effusion. The heart size is minimally enlarged. Stable appearance of the tracheostomy tube. Pulmonary vasculatures are unremark able. IMPRESSION: 1. No active disease in the chest 2. Moderate gaseous distention of the stomach. Recommend correlation with abdominal x-ray at 0644 Reported and signed by: Brayan Toro M.D. CC: Ilan Stein; Ashley Hendrxi PRODUCTION CLERK Te chnologist: OCTAVIO VASQUEZ JR; Abigail Darling Trnscrd Date/ Time/By: 12/05/2018 (0644) : By: Rodrigo Orig Print D/T: S: 12/06/19 (0656) PAGE 1 Signed Report COMPREHENSIVE METABOLIC [id number] 06:08:00* Test Item Value Reference Range Interpretation Comments SODIUM (test code = NA) 143 mmol/L 136-145 N POTASSIUM (test code = K) 4.7 mmol/L 3.5-5.1 N CHLORIDE (test code = CL) 115.0 mmol/L 98-107 H CARBON DIOXIDE (test code = CO2) 20.0 mmol/L 21-32 L ANION GAP (test code = GAP) 12.7 10-20 N GLUCOSE (test code = GLU) 92 mg/dL 74-106 N BLOOD UREA NITROGEN (test code = BUN) 72 mg/dL 7-18 H GLOMERULAR FILTRATION RATE (test code = GFR) 34 mL/min >=60 Estimated GFR by using Modified MDRD formula.Chronic kidney disease is defined as either kidney damageor GFR <60 mL/min/1.73 m2 for >3 months. CREATININE (test code = CREAT) 1.50 mg/dL 0.55-1.02 H Note change in reference range due to change in reagent. BUN/CREATININE RATIO (test code = BUN/CREA) 49.0 10-20 H TOTAL PROTEIN (test code = PROT) 4.7 gram/dL 6.4-8.2 L ALBUMIN (test code = ALB) 2.1 g/dL 3.4-5.0 L GLOBULIN (test code = GLOB) 2.6 gram/dL 2.7-4.2 L ALBUMIN/GLOBULIN RATIO (test code = A/G) 0.8 0.75-1.50 N CALCIUM (test code = CA) 8.0 mg/dL 8.5-10.1 L BILIRUBIN TOTAL (test code = BILT) 0.50 mg/dL 0.0-1.0 N SGOT/AST (test code = AST) 13 IUnit/L 15-37 L SGPT/ALT (test code = ALT) 13 IUnit/L 12-78 N ALKALINE PHOSPHATASE TOTAL (test code = ALKP) 138 IUnit/L 45-117 H Note change in reference range due to change in reagent. [id number] 06:08:00* Test Item Value Reference Range Interpretation Comments PHOSPHORUS (test code = PHOS) 1.8 mg/dL 2.5-4.9 L [id number] 06:08:00* Test Item Value Reference Range Interpretation Comments MAGNESIUM (test code = MAG) 1.1 mg/dL 1.8-2.4 L CALCIUM [id number] 06:08:00* Test Item Value Reference Range Interpretation Comments CALCIUM IONIZED (test code = ERICH) 1.25 mmol/L 1.12-1.32 N ARTERIAL BLOOD [id number] 06:05:00* Test Item Value Reference Range Interpretation Comments ARTERIAL BLOOD GAS PH (test code = PHA) 7.48 7.35-7.45 H ARTERIAL BLOOD GAS PCO2 (test code = PCO2A) 24.2 mm Hg 35-45 LL Results [facility] - 12/05/2018; by Dilcia Hdz, NAIL ASSEMBLY MACHINE OPERATOR ARTERIAL BLOOD GAS PO2 (test code = PO2A) 109.4 mmHg 80-100 H BICARBONATE TOTAL HCO3 (test code = HCO3) 17.7 mmol/L 23.0-27.0 L BASE EXCESS (test code = SHASHA) -4.9 mmol/L -3.0-5.0 LL Results called [facility] and [facility] - 12/05/2018; by Dilcia Hdz, NAIL ASSEMBLY MACHINE OPERATOR ABG O2 SATURATION (test code = SATA) 97.4 % 90.0-98.0 N ABG TYPE (test code = TYPEA) Arterial FIO2 (test code = FIO2A) 30.0 ABG VENT MODE (test code = MODEA) VC+ ABG VENT RESP RATE (test code = RRA) 14.0 per min ABG TIDAL VOLUME (test code = TVA) 500.0 mL ABG PEEP (test code = PEEPA) 5.0 cmH2O ABG SITE (test code = SITEA) ARTERIAL LINE HEMATOCRIT (test code = HCT/ABG) 24 % 35-47 L TOTAL HGB (test code = THB) 8.1 gram/dL 11.5-15.5 L HGB O2 SAT (test code = HBOSAT) 96.5 % 94.00-98.00 N CARBOXYHEMOGLOBIN (test code = HOHGBT) 0.3 %totalHg 0.5-1.5 LL Results called to and read back by [facility] : - 12/05/2018; by Dilcia Hdz, NAIL ASSEMBLY MACHINE OPERATOR METHEMOGLOBIN (test code = METHGB) 0.6 % 0.0-1.50 N O2 CONTENT (test code = O2CT) 11.2 % vol 18.0-22.0 L ARTERIAL BLOOD [id number] 06:04:00* Test Item Value Reference Range Interpretation Comments ARTERIAL BLOOD GAS PH (test code = PHA) 7.55 7.35-7.45 H Results [facility] : - 12/05/2018; by Dilcia Hdz, NAIL ASSEMBLY MACHINE OPERATOR ARTERIAL BLOOD GAS PCO2 (test code = PCO2A) 24.8 mm Hg 35-45 LL Results called [facility] and read back by [facility] - 12/05/2018; by Dilcia Hdz, NAIL ASSEMBLY MACHINE OPERATOR ARTERIAL BLOOD GAS PO2 (test code = PO2A) 137.3 mmHg 80-100 H BICARBONATE TOTAL HCO3 (test code = HCO3) 21.2 mmol/L 23.0-27.0 L BASE EXCESS (test code = SHASHA) 0.1 mmol/L -3.0-5.0 N ABG O2 SATURATION (test code = SATA) 98.1 % 90.0-98.0 H ABG TYPE (test code = TYPEA) Arterial FIO2 (test code = FIO2A) 45.0 ABG VENT MODE (test code = MODEA) VC+ ABG VENT RESP RATE (test code = RRA) 14.0 per min ABG TIDAL VOLUME (test code = TVA) 500.0 mL ABG PEEP (test code = PEEPA) 5.0 cmH2O ABG SITE (test code = SITEA) ARTERIAL LINE MODIFIED ALLENS (test code = MODALL) Yes CHECK PERFORMED SODIUM (test code = NA/ABG) 133.6 mEq/L 135-148 L POTASSIUM (test code = K/ABG) 3.0 mEq/L 3.5-4.5 L CHLORIDE (test code = CL/ABG) 102 mEq/L 98-106 N GLUCOSE (test code = GLU/ABG) 150 mg/dL 74-99 H HEMATOCRIT (test code = HCT/ABG) 36 % 35-47 N IONIZED CALCIUM (test code = CAIABG) 1.15 mmol/L 1.1-1.37 N TOTAL HGB (test code = THB) 12.1 gram/dL 11.5-15.5 N HGB O2 SAT (test code = HBOSAT) 97.5 % 94.00-98.00 N CARBOXYHEMOGLOBIN (test code = HOHGBT) 0.3 %totalHg 0.5-1.5 LL Results called to and read back by Renzo 06: - 12/05/2018; by Dilcia Hdz, NAIL ASSEMBLY MACHINE OPERATOR METHEMOGLOBIN (test code = METHGB) 0.3 % 0.0-1.50 N O2 CONTENT (test code = O2CT) 16.8 % vol 18.0-22.0 L [id number] 06:02:00* Test Item Value Reference Range Interpretation Comments GENTAMICIN (test code = GENT) 3.0 mg/mL 4-8.0 L GENTAMICIN TOXIC LEVEL: >12 UG/ML COMPREHENSIVE METABOLIC [id number] 05:59:00* Test Item Value Reference Range Interpretation Comments SODIUM (test code = NA) 143 mmol/L 136-145 N POTASSIUM (test code = K) 4.7 mmol/L 3.5-5.1 N CHLORIDE (test code = CL) 115.0 mmol/L 98-107 H CARBON DIOXIDE (test code = CO2) mmol/L 21-32 ANION GAP (test code = GAP) 10-20 GLUCOSE (test code = GLU) mg/dL 74-106 BLOOD UREA NITROGEN (test code = BUN) mg/dL 7-18 GLOMERULAR FILTRATION RATE (test code = GFR) mL/min >=60 CREATININE (test code = CREAT) mg/dL 0.55-1.02 BUN/CREATININE RATIO (test code = BUN/CREA) 10-20 TOTAL PROTEIN (test code = PROT) gram/dL 6.4-8.2 ALBUMIN (test code = ALB) g/dL 3.4-5.0 GLOBULIN (test code = GLOB) gram/dL 2.7-4.2 ALBUMIN/GLOBULIN RATIO (test code = A/G) 0.75-1.50 CALCIUM (test code = CA) mg/dL 8.5-10.1 BILIRUBIN TOTAL (test code = BILT) mg/dL 0.0-1.0 SGOT/AST (test code = AST) IUnit/L 15-37 SGPT/ALT (test code = ALT) IUnit/L 12-78 ALKALINE PHOSPHATASE TOTAL (test code = ALKP) IUnit/L 45-117 [id number] 05:59:00* Test Item Value Reference Range Interpretation Comments PHOSPHORUS (test code = PHOS) mg/dL 2.5-4.9 [id number] 05:59:00* Test Item Value Reference Range Interpretation Comments MAGNESIUM (test code = MAG) mg/dL 1.8-2.4 CALCIUM [id number] 05:59:00* Test Item Value Reference Range Interpretation Comments CALCIUM IONIZED (test code = ERICH) 1.25 mmol/L 1.12-1.32 N COMPREHENSIVE METABOLIC [id number] 05:51:00* Test Item Value Reference Range Interpretation Comments SODIUM (test code = NA) mmol/L 136-145 POTASSIUM (test code = K) mmol/L 3.5-5.1 CHLORIDE (test code = CL) mmol/L 98-107 CARBON DIOXIDE (test code = CO2) mmol/L 21-32 ANION GAP (test code = GAP) 10-20 GLUCOSE (test code = GLU) mg/dL 74-106 BLOOD UREA NITROGEN (test code = BUN) mg/dL 7-18 GLOMERULAR FILTRATION RATE (test code = GFR) mL/min >=60 CREATININE (test code = CREAT) mg/dL 0.55-1.02 BUN/CREATININE RATIO (test code = BUN/CREA) 10-20 TOTAL PROTEIN (test code = PROT) gram/dL 6.4-8.2 ALBUMIN (test code = ALB) g/dL 3.4-5.0 GLOBULIN (test code = GLOB) gram/dL 2.7-4.2 ALBUMIN/GLOBULIN RATIO (test code = A/G) 0.75-1.50 CALCIUM (test code = CA) mg/dL 8.5-10.1 BILIRUBIN TOTAL (test code = BILT) mg/dL 0.0-1.0 SGOT/AST (test code = AST) IUnit/L 15-37 SGPT/ALT (test code = ALT) IUnit/L 12-78 ALKALINE PHOSPHATASE TOTAL (test code = ALKP) IUnit/L 45-117 [id number] 05:51:00* Test Item Value Reference Range Interpretation Comments PHOSPHORUS (test code = PHOS) mg/dL 2.5-4.9 [id number] 05:51:00* Test Item Value Reference Range Interpretation Comments MAGNESIUM (test code = MAG) mg/dL 1.8-2.4 CALCIUM [id number] 05:51:00* Test Item Value Reference Range Interpretation Comments CALCIUM IONIZED (test code = ERICH) 1.25 mmol/L 1.12-1.32 N CBC W/AUTO [id number] 05:48:00* Test Item Value Reference Range Interpretation Comments WHITE BLOOD CELL (test code = WBC) 21.5 K/mm3 4.5-12.5 H RED BLOOD CELL (test code = RBC) 2.71 mill/mm3 3.7-5.2 L HEMOGLOBIN (test code = HGB) 7.8 gram/dL 11.5-15.5 L HEMATOCRIT (test code = HCT) 23.9 % 36.0-46.0 L MEAN CELL VOLUME (test code = MCV) 88.2 fL 80-98 N MEAN CELL HGB (test code = MCH) 28.8 picogram 27.0-33.0 N MEAN CELL HGB CONCETRATION (test code = MCHC) 32.6 gram/dL 33.0-36. 0 L RED CELL DISTRIBUTION WIDTH (test code = RDW) 16.3 % 11.6-16. 2 H RED CELL DISTRIBUTION WIDTH SD (test code = RDW-SD) 50.1 fL 37 .0-51.0 N PLATELET COUNT (test code = PLT) 173 K/mm3 150-450 N MEAN PLATELET VOLUME (test code = MPV) 13.4 fL 6.7-11.0 H NEUTROPHIL % (test code = NT%) 84.6 % 39.0-69.0 H IMMATURE GRANULOCYTE % (test code = IG%) 1.3 % 0.0-5.0 N LYMPHOCYTE % (test code = LY%) 7.3 % 25.0-55.0 L MONOCYTE % (test code = MO%) 6.6 % 0.0-10.0 N EOSINOPHIL % (test code = EO%) 0.1 % 0.0-5.0 N BASOPHIL % (test code = BA%) 0.1 % 0.0-1.0 N NUCLEATED RBC % (test code = NRBC%) 0.1 % 0-0 H NEUTROPHIL # (test code = NT#) 18.18 K/mm3 1.8-7.7 H IMMATURE GRANULOCYTE # (test code = IG#) 0.28 x10 3/uL 0-0.03 H LYMPHOCYTE # (test code = LY#) 1.57 K/mm3 1.0-5.0 N MONOCYTE # (test code = MO#) 1.41 K/mm3 0-0.8 H EOSINOPHIL # (test code = EO#) 0.03 K/mm3 0.0-0.5 N BASOPHIL # (test code = BA#) 0.02 K/mm3 0.0-0.2 N NUCLEATED RBC # (test code = NRBC#) 0.02 K/mm3 0.0-0.1 N BASIC METABOLIC [id number] 23:07:00* Test Item Value Reference Range Interpretation Comments SODIUM (test code = NA) 145 mmol/L 136-145 N POTASSIUM (test code = K) 4.6 mmol/L 3.5-5.1 N CHLORIDE (test code = CL) 118.0 mmol/L 98-107 H CARBON DIOXIDE (test code = CO2) 21.0 mmol/L 21-32 N ANION GAP (test code = GAP) 10.6 10-20 N GLUCOSE (test code = GLU) 78 mg/dL 74-106 N BLOOD UREA NITROGEN (test code = BUN) 73 mg/dL 7-18 H GLOMERULAR FILTRATION RATE (test code = GFR) 34 mL/min >=60 Estimated GFR by using Modified MDRD formula.Chronic kidney disease is defined as either kidney damageor GFR <60 mL/min/1.73 m2 for >3 months. CREATININE (test code = CREAT) 1.50 mg/dL 0.55-1.02 H Note change in reference range due to change in reagent. BUN/CREATININE RATIO (test code = BUN/CREA) 48.7 10-20 H CALCIUM (test code = CA) 7.8 mg/dL 8.5-10.1 L HGB [id number] 22:32:00* Test Item Value Reference Range Interpretation Comments HEMOGLOBIN (test code = HGB) 7.7 gram/dL 11.5-15.5 L HEMATOCRIT (test code = HCT) 24.6 % 36.0-46.0 L BASIC METABOLIC [id number] 19:06:00* Test Item Value Reference Range Interpretation Comments SODIUM (test code = NA) 146 mmol/L 136-145 H POTASSIUM (test code = K) 4.9 mmol/L 3.5-5.1 N CHLORIDE (test code = CL) 116.8 mmol/L 98-107 H CARBON DIOXIDE (test code = CO2) 20.0 mmol/L 21-32 L ANION GAP (test code = GAP) 14.1 10-20 N GLUCOSE (test code = GLU) 86 mg/dL 74-106 N BLOOD UREA NITROGEN (test code = BUN) 78 mg/dL 7-18 H GLOMERULAR FILTRATION RATE (test code = GFR) 31 mL/min >=60 Estimated GFR by using Modified MDRD formula.Chronic kidney disease is defined as either kidney damageor GFR <60 mL/min/1.73 m2 for >3 months. CREATININE (test code = CREAT) 1.66 mg/dL 0.55-1.02 H Note change in reference range due to change in reagent. BUN/CREATININE RATIO (test code = BUN/CREA) 47.0 10-20 H CALCIUM (test code = CA) 8.1 mg/dL 8.5-10.1 L CBC W/MANUAL [id number] 17:48:00* Test Item Value Reference Range Interpretation Comments WHITE BLOOD CELL (test code = WBC) 26.2 K/mm3 4.5-12.5 H RED BLOOD CELL (test code = RBC) 2.91 mill/mm3 3.7-5.2 L HEMOGLOBIN (test code = HGB) 8.1 gram/dL 11.5-15.5 L HEMATOCRIT (test code = HCT) 25.7 % 36.0-46.0 L MEAN CELL VOLUME (test code = MCV) 88.3 fL 80-98 N MEAN CELL HGB (test code = MCH) 27.8 picogram 27.0-33.0 N MEAN CELL HGB CONCETRATION (test code = MCHC) 31.5 gram/dL 33.0-36. 0 L RED CELL DISTRIBUTION WIDTH (test code = RDW) 16.4 % 11.6-16. 2 H RED CELL DISTRIBUTION WIDTH SD (test code = RDW-SD) 50.9 fL 37 .0-51.0 N PLATELET COUNT (test code = PLT) 182 K/mm3 150-450 N MEAN PLATELET VOLUME (test code = MPV) 14.0 fL 6.7-11.0 H IMMATURE GRANULOCYTE % (test code = IG%) 1.3 % 0.0-5.0 N NUCLEATED RBC % (test code = NRBC%) 0.1 % 0-0 H NEUTROPHIL # (test code = NT#) 22.16 K/mm3 1.8-7.7 H IMMATURE GRANULOCYTE # (test code = IG#) 0.34 x10 3/uL 0-0.03 H LYMPHOCYTE # (test code = LY#) 1.70 K/mm3 1.0-5.0 N MONOCYTE # (test code = MO#) 2.00 K/mm3 0-0.8 H EOSINOPHIL # (test code = EO#) 0.00 K/mm3 0.0-0.5 N BASOPHIL # (test code = BA#) 0.03 K/mm3 0.0-0.2 N NUCLEATED RBC # (test code = NRBC#) 0.03 K/mm3 0.0-0.1 N MANUAL DIFF REQUIRED (test code = MDIFF) YES STAIN ACCEPTABILITY (test code = STN ACCEPTABLE) STAIN ACCEPTABLE TOTAL CELLS COUNTED (test code = TCC) 116 #CELLS SEGMENTED NEUTROPHILS (test code = SEG) 84.5 % 39-69 H BAND NEUTROPHIL (test code = BAND) 0.9 % 0-10 N LYMPHOCYTE (test code = LYMPH) 6.0 % 25-55 L REACTIVE LYMPH (test code = RELYMPH) 0 % MONOCYTE (test code = MON) 6.9 % 0-10 N EOSINOPHIL (test code = EOS) 0 % 0.0-5.0 N BASOPHIL (test code = BASO) 0 % 0-1.0 N METAMYELOCYTE (test code = META) 0 % 0-0 N MYELOCYTE (test code = MYELO) 0 % 0.0-0.0 N PROMYELOCYTE (test code = PROM) 0 % 0-0 N HYPOCHROMIA (test code = HYPO) 2+ ANISOCYTOSIS (test code = ANISO) 1+ PLATELET ESTIMATE (test code = PLTEST) ADEQUATE PLATELET MORPHOLOGY (test code = PLTMORPH) SIZE VARIABLE IMMATURE FORMS (test code = IMMAT) 1.7 % CBC W/MANUAL [id number] 17:12:00* Test Item Value Reference Range Interpretation Comments WHITE BLOOD CELL (test code = WBC) 26.2 K/mm3 4.5-12.5 H RED BLOOD CELL (test code = RBC) 2.91 mill/mm3 3.7-5.2 L HEMOGLOBIN (test code = HGB) 8.1 gram/dL 11.5-15.5 L HEMATOCRIT (test code = HCT) 25.7 % 36.0-46.0 L MEAN CELL VOLUME (test code = MCV) 88.3 fL 80-98 N MEAN CELL HGB (test code = MCH) 27.8 picogram 27.0-33.0 N MEAN CELL HGB CONCETRATION (test code = MCHC) 31.5 gram/dL 33.0-36. 0 L RED CELL DISTRIBUTION WIDTH (test code = RDW) 16.4 % 11.6-16. 2 H RED CELL DISTRIBUTION WIDTH SD (test code = RDW-SD) 50.9 fL 37 .0-51.0 N PLATELET COUNT (test code = PLT) 182 K/mm3 150-450 N MEAN PLATELET VOLUME (test code = MPV) 14.0 fL 6.7-11.0 H IMMATURE GRANULOCYTE % (test code = IG%) 1.3 % 0.0-5.0 N NUCLEATED RBC % (test code = NRBC%) 0.1 % 0-0 H NEUTROPHIL # (test code = NT#) 22.16 K/mm3 1.8-7.7 H IMMATURE GRANULOCYTE # (test code = IG#) 0.34 x10 3/uL 0-0.03 H LYMPHOCYTE # (test code = LY#) 1.70 K/mm3 1.0-5.0 N MONOCYTE # (test code = MO#) 2.00 K/mm3 0-0.8 H EOSINOPHIL # (test code = EO#) 0.00 K/mm3 0.0-0.5 N BASOPHIL # (test code = BA#) 0.03 K/mm3 0.0-0.2 N NUCLEATED RBC # (test code = NRBC#) 0.03 K/mm3 0.0-0.1 N MANUAL DIFF REQUIRED (test code = MDIFF) YES STAIN ACCEPTABILITY (test code = STN ACCEPTABLE) TOTAL CELLS COUNTED (test code = TCC) #CELLS SEGMENTED NEUTROPHILS (test code = SEG) % 39-69 LYMPHOCYTE (test code = LYMPH) % 25-55 MONOCYTE (test code = MON) % 0-10 EOSINOPHIL (test code = EOS) % 0.0-5.0 CABOT RINGS (test code = CAB) MORPHOLOGY COMMENT (test code = MOC) PLATELET ESTIMATE (test code = PLTEST) PLATELET MORPHOLOGY (test code = PLTMORPH) CBC W/MANUAL [id number] 17:12:00* Test Item Value Reference Range Interpretation Comments WHITE BLOOD CELL (test code = WBC) 26.2 K/mm3 4.5-12.5 H RED BLOOD CELL (test code = RBC) 2.91 mill/mm3 3.7-5.2 L HEMOGLOBIN (test code = HGB) 8.1 gram/dL 11.5-15.5 L HEMATOCRIT (test code = HCT) 25.7 % 36.0-46.0 L MEAN CELL VOLUME (test code = MCV) 88.3 fL 80-98 N MEAN CELL HGB (test code = MCH) 27.8 picogram 27.0-33.0 N MEAN CELL HGB CONCETRATION (test code = MCHC) 31.5 gram/dL 33.0-36. 0 L RED CELL DISTRIBUTION WIDTH (test code = RDW) 16.4 % 11.6-16. 2 H RED CELL DISTRIBUTION WIDTH SD (test code = RDW-SD) 50.9 fL 37 .0-51.0 N PLATELET COUNT (test code = PLT) 182 K/mm3 150-450 N MEAN PLATELET VOLUME (test code = MPV) 14.0 fL 6.7-11.0 H IMMATURE GRANULOCYTE % (test code = IG%) 1.3 % 0.0-5.0 N NUCLEATED RBC % (test code = NRBC%) 0.1 % 0-0 H NEUTROPHIL # (test code = NT#) 22.16 K/mm3 1.8-7.7 H IMMATURE GRANULOCYTE # (test code = IG#) 0.34 x10 3/uL 0-0.03 H LYMPHOCYTE # (test code = LY#) 1.70 K/mm3 1.0-5.0 N MONOCYTE # (test code = MO#) 2.00 K/mm3 0-0.8 H EOSINOPHIL # (test code = EO#) 0.00 K/mm3 0.0-0.5 N BASOPHIL # (test code = BA#) 0.03 K/mm3 0.0-0.2 N NUCLEATED RBC # (test code = NRBC#) 0.03 K/mm3 0.0-0.1 N MANUAL DIFF REQUIRED (test code = MDIFF) YES STAIN ACCEPTABILITY (test code = STN ACCEPTABLE) TOTAL CELLS COUNTED (test code = TCC) #CELLS SEGMENTED NEUTROPHILS (test code = SEG) % 39-69 LYMPHOCYTE (test code = LYMPH) % 25-55 MONOCYTE (test code = MON) % 0-10 EOSINOPHIL (test code = EOS) % 0.0-5.0 CABOT RINGS (test code = CAB) MORPHOLOGY COMMENT (test code = MOC) PLATELET ESTIMATE (test code = PLTEST) PLATELET MORPHOLOGY (test code = PLTMORPH) CBC W/MANUAL [id number] 17:12:00* Test Item Value Reference Range Interpretation Comments WHITE BLOOD CELL (test code = WBC) 26.2 K/mm3 4.5-12.5 H RED BLOOD CELL (test code = RBC) 2.91 mill/mm3 3.7-5.2 L HEMOGLOBIN (test code = HGB) 8.1 gram/dL 11.5-15.5 L HEMATOCRIT (test code = HCT) 25.7 % 36.0-46.0 L MEAN CELL VOLUME (test code = MCV) 88.3 fL 80-98 N MEAN CELL HGB (test code = MCH) 27.8 picogram 27.0-33.0 N MEAN CELL HGB CONCETRATION (test code = MCHC) 31.5 gram/dL 33.0-36. 0 L RED CELL DISTRIBUTION WIDTH (test code = RDW) 16.4 % 11.6-16. 2 H RED CELL DISTRIBUTION WIDTH SD (test code = RDW-SD) 50.9 fL 37 .0-51.0 N PLATELET COUNT (test code = PLT) 182 K/mm3 150-450 N MEAN PLATELET VOLUME (test code = MPV) 14.0 fL 6.7-11.0 H IMMATURE GRANULOCYTE % (test code = IG%) 1.3 % 0.0-5.0 N NUCLEATED RBC % (test code = NRBC%) 0.1 % 0-0 H NEUTROPHIL # (test code = NT#) 22.16 K/mm3 1.8-7.7 H IMMATURE GRANULOCYTE # (test code = IG#) 0.34 x10 3/uL 0-0.03 H LYMPHOCYTE # (test code = LY#) 1.70 K/mm3 1.0-5.0 N MONOCYTE # (test code = MO#) 2.00 K/mm3 0-0.8 H EOSINOPHIL # (test code = EO#) 0.00 K/mm3 0.0-0.5 N BASOPHIL # (test code = BA#) 0.03 K/mm3 0.0-0.2 N NUCLEATED RBC # (test code = NRBC#) 0.03 K/mm3 0.0-0.1 N MANUAL DIFF REQUIRED (test code = MDIFF) YES STAIN ACCEPTABILITY (test code = STN ACCEPTABLE) TOTAL CELLS COUNTED (test code = TCC) #CELLS SEGMENTED NEUTROPHILS (test code = SEG) % 39-69 LYMPHOCYTE (test code = LYMPH) % 25-55 MONOCYTE (test code = MON) % 0-10 EOSINOPHIL (test code = EOS) % 0.0-5.0 MORPHOLOGY COMMENT (test code = MOC) PLATELET ESTIMATE (test code = PLTEST) PLATELET MORPHOLOGY (test code = PLTMORPH) CBC W/MANUAL [id number] 17:12:00* Test Item Value Reference Range Interpretation Comments WHITE BLOOD CELL (test code = WBC) 26.2 K/mm3 4.5-12.5 H RED BLOOD CELL (test code = RBC) 2.91 mill/mm3 3.7-5.2 L HEMOGLOBIN (test code = HGB) 8.1 gram/dL 11.5-15.5 L HEMATOCRIT (test code = HCT) 25.7 % 36.0-46.0 L MEAN CELL VOLUME (test code = MCV) 88.3 fL 80-98 N MEAN CELL HGB (test code = MCH) 27.8 picogram 27.0-33.0 N MEAN CELL HGB CONCETRATION (test code = MCHC) 31.5 gram/dL 33.0-36. 0 L RED CELL DISTRIBUTION WIDTH (test code = RDW) 16.4 % 11.6-16. 2 H RED CELL DISTRIBUTION WIDTH SD (test code = RDW-SD) 50.9 fL 37 .0-51.0 N PLATELET COUNT (test code = PLT) 182 K/mm3 150-450 N MEAN PLATELET VOLUME (test code = MPV) 14.0 fL 6.7-11.0 H IMMATURE GRANULOCYTE % (test code = IG%) 1.3 % 0.0-5.0 N NUCLEATED RBC % (test code = NRBC%) 0.1 % 0-0 H NEUTROPHIL # (test code = NT#) 22.16 K/mm3 1.8-7.7 H IMMATURE GRANULOCYTE # (test code = IG#) 0.34 x10 3/uL 0-0.03 H LYMPHOCYTE # (test code = LY#) 1.70 K/mm3 1.0-5.0 N MONOCYTE # (test code = MO#) 2.00 K/mm3 0-0.8 H EOSINOPHIL # (test code = EO#) 0.00 K/mm3 0.0-0.5 N BASOPHIL # (test code = BA#) 0.03 K/mm3 0.0-0.2 N NUCLEATED RBC # (test code = NRBC#) 0.03 K/mm3 0.0-0.1 N MANUAL DIFF REQUIRED (test code = MDIFF) YES STAIN ACCEPTABILITY (test code = STN ACCEPTABLE) TOTAL CELLS COUNTED (test code = TCC) #CELLS SEGMENTED NEUTROPHILS (test code = SEG) % 39-69 LYMPHOCYTE (test code = LYMPH) % 25-55 MONOCYTE (test code = MON) % 0-10 MORPHOLOGY COMMENT (test code = MOC) PLATELET ESTIMATE (test code = PLTEST) PLATELET MORPHOLOGY (test code = PLTMORPH) CBC W/MANUAL [id number] 17:12:00* Test Item Value Reference Range Interpretation Comments WHITE BLOOD CELL (test code = WBC) 26.2 K/mm3 4.5-12.5 H RED BLOOD CELL (test code = RBC) 2.91 mill/mm3 3.7-5.2 L HEMOGLOBIN (test code = HGB) 8.1 gram/dL 11.5-15.5 L HEMATOCRIT (test code = HCT) 25.7 % 36.0-46.0 L MEAN CELL VOLUME (test code = MCV) 88.3 fL 80-98 N MEAN CELL HGB (test code = MCH) 27.8 picogram 27.0-33.0 N MEAN CELL HGB CONCETRATION (test code = MCHC) 31.5 gram/dL 33.0-36. 0 L RED CELL DISTRIBUTION WIDTH (test code = RDW) 16.4 % 11.6-16. 2 H RED CELL DISTRIBUTION WIDTH SD (test code = RDW-SD) 50.9 fL 37 .0-51.0 N PLATELET COUNT (test code = PLT) 182 K/mm3 150-450 N MEAN PLATELET VOLUME (test code = MPV) 14.0 fL 6.7-11.0 H IMMATURE GRANULOCYTE % (test code = IG%) 1.3 % 0.0-5.0 N NUCLEATED RBC % (test code = NRBC%) 0.1 % 0-0 H NEUTROPHIL # (test code = NT#) 22.16 K/mm3 1.8-7.7 H IMMATURE GRANULOCYTE # (test code = IG#) 0.34 x10 3/uL 0-0.03 H LYMPHOCYTE # (test code = LY#) 1.70 K/mm3 1.0-5.0 N MONOCYTE # (test code = MO#) 2.00 K/mm3 0-0.8 H EOSINOPHIL # (test code = EO#) 0.00 K/mm3 0.0-0.5 N BASOPHIL # (test code = BA#) 0.03 K/mm3 0.0-0.2 N NUCLEATED RBC # (test code = NRBC#) 0.03 K/mm3 0.0-0.1 N MANUAL DIFF REQUIRED (test code = MDIFF) YES STAIN ACCEPTABILITY (test code = STN ACCEPTABLE) TOTAL CELLS COUNTED (test code = TCC) #CELLS SEGMENTED NEUTROPHILS (test code = SEG) % 39-69 LYMPHOCYTE (test code = LYMPH) % 25-55 MONOCYTE (test code = MON) % 0-10 EOSINOPHIL (test code = EOS) % 0.0-5.0 CABOT RINGS (test code = CAB) MORPHOLOGY COMMENT (test code = MOC) PLATELET ESTIMATE (test code = PLTEST) PLATELET MORPHOLOGY (test code = PLTMORPH) [id number] 15:12:00* Test Item Value Reference Range Interpretation Comments GLUBED (test code = GLUBED) 144 mg/dL 74-106 H Performed by certified pulping machine operator at [facility] [id number] 15:12:00* Test Item Value Reference Range Interpretation Comments GLUBED (test code = GLUBED) 88 mg/dL 74-106 N Performed by certified pulping machine operator at [facility] BASIC METABOLIC [id number] 09:57:00* Test Item Value Reference Range Interpretation Comments SODIUM (test code = NA) 144 mmol/L 136-145 N POTASSIUM (test code = K) 5.4 mmol/L 3.5-5.1 H CHLORIDE (test code = CL) 118.0 mmol/L 98-107 H CARBON DIOXIDE (test code = CO2) 20.0 mmol/L 21-32 L ANION GAP (test code = GAP) 11.4 10-20 N GLUCOSE (test code = GLU) 118 mg/dL 74-106 H BLOOD UREA NITROGEN (test code = BUN) 73 mg/dL 7-18 H GLOMERULAR FILTRATION RATE (test code = GFR) 32 mL/min >=60 Estimated GFR by using Modified MDRD formula.Chronic kidney disease is defined as either kidney damageor GFR <60 mL/min/1.73 m2 for >3 months. CREATININE (test code = CREAT) 1.60 mg/dL 0.55-1.02 H Note change in reference range due to change in reagent. BUN/CREATININE RATIO (test code = BUN/CREA) 45.3 10-20 H CALCIUM (test code = CA) 7.3 mg/dL 8.5-10.1 L SPECIMEN COMMENTS: to be collected at 0800 with q6 hour CBCCOMMENTS TO PHLEBOTOM IST: to be collected at 0600 with q6 hour CBC [id number] 09:29:00* Test Item Value Reference Range Interpretation Comments HEMOGLOBIN (test code = HGB) 9.3 gram/dL 11.5-15.5 L - XR CHEST 1 [id number] 09:06:00 FAX: Ilan Holt MD [place]: B St: DIS FAX: Ashley Juarez NP [phone] Name: MOJGAN CUMMINGS [facility] : 1950 Age/S: 68/F [address] [facility] Unit #: [id number] Loc: [place] [address] Phys: Ashley Hendrix NP Acct: [id number] Dis Date: Status: DIS IN PHONE #: [phone] Exam Date: 12/04/2018 0847 FAX #: [phone] Reason: respiratory failure EXAMS: CPT CODE: [id number] XR CHEST 1 V 32644 HISTORY: Respiratory failure. COMPARISON: November 27, 2018. Tracheostomy tube is in good position. No acute infiltrates, effusion or congestion is noted. The cardiac and mediastinal silhouette are within normal limits. IMPRESSION: No acute infiltrates, effusion or congestion. at 0906 Reported and signed by: Clem Grissom M.D. CC: Ilan Tariq am; Ashley Hendrix NP Technologist: Nida Gunn RT(R); STUDENT TECHNOLOGIST Trnscrd Date/Time/By: 12/04/2018 (0906) : By: [email or web address] Orig Print D/T: S: 12/04/2018 (5310) PAGE 1 Signed Report - XR CHEST 1 [id number] 09:06:00 FAX: Ilan Holt MD [place]: B St: ADM FAX: Ashley Juarez NP [phone] Name: MOJGAN CUMMINGS [facility] : 1950 Age/S: 68/F [address] [facility] Unit #: [id number] Loc: [address] [address] Phys: Ashley Hendrix NP Acct: [id number] Dis Date: Status: ADM IN PHONE #: [phone] Exam Date: 12/04/2018 0847 FAX #: [phone] Reason: respiratory failure EXAMS: CPT CODE: [id number] XR CHEST 1 V 69389 HISTORY: Respiratory failure. COMPARISON: November 27, 2018. Tracheostomy tube is in good position. No acute infiltrates, effusion or congestion is noted. The cardiac and mediastinal silhouette are within normal limits. IMPRESSION: No acute infiltrates, effusion or congestion. at 0906 Reported and signed by: Clem Grissom M.D. CC: Ilan Tariq am; Ashley Hendrix NP Technologist: Nida ALEXANDRA(R); STUDENT TECHNOLOGIST Trnscrd Date/Time/By: 12/04/2018 (0906) : By: [email or web address] Orig Print D/T: S: 12/04/2018 (8610) PAGE 1 Signed Report - XR CHEST 1 [id number] 09:06:00 FAX: Ilan Holt MD [place]: B St: DIS FAX: Ashley Juarze NP [phone] Name: MOJGAN CUMMINGS [facility] : 1950 Age/S: 68/F [place] Unit #: [id number] Loc: [place] [address] Phys: Ashley Hendrix PRODUCTION CLERK Acct: [id number] Dis Date: Status: DIS IN PHONE #: [phone] Exam Date: 12/04/2018 0847 FAX #: [phone] Reason: respiratory failure EXAMS: CPT CODE: [id number] XR CHEST 1 V 87325 HISTORY: Respiratory failure. COMPARISON: November 27, 2018. Tracheostomy tube is in good position. No acute infiltrates, effusion or congestion is noted. The cardiac and mediastinal silhouette are within normal limits. IMPRESSION: No acute infiltrates, effusion or congestion. at 0906 Reported and signed by: Clem Grissom M.D. CC: Ilan Tariq am; Ashley Hendrix NP Technologist: Nida Gunn RT(R); STUDENT TECHNOLOGIST Trnscrd Date/Time/By: 12/04/2018 (0906) : By: [email or web address] Orig Print D/T: S: 12/04/2018 (0110) PAGE 1 Signed Report LACTIC [id number] 06:59:00* Test Item Value Reference Range Interpretation Comments LACTIC ACID (test code = LACT) 0.8 mmol/L 0.4-1.9 N ARTERIAL BLOOD [id number] 05:57:00* Test Item Value Reference Range Interpretation Comments ARTERIAL BLOOD GAS PH (test code = PHA) 7.45 7.35-7.45 N ARTERIAL BLOOD GAS PCO2 (test code = PCO2A) 25.0 mm Hg 35-45 L Results called to and read back by Hopela 05: - 12/04/2018; by Ac Hernandez RRT ARTERIAL BLOOD GAS PO2 (test code = PO2A) 196.4 mmHg 80-100 H BICARBONATE TOTAL HCO3 (test code = HCO3) 17.0 mmol/L 23.0-27.0 L BASE EXCESS (test code = SHASHA) -5.6 mmol/L -3.0-5.0 LL Results called to and read back by Hopela 05:12/04/2018; by Ac Hernandez, NAIL ASSEMBLY MACHINE OPERATOR ABG O2 SATURATION (test code = SATA) 98.5 % 90.0-98.0 H ABG TYPE (test code = TYPEA) Arterial FIO2 (test code = FIO2A) 40.0 ABG L/M (test code = L/M) 60.00 L/MIN ABG VENT MODE (test code = MODEA) Assist Control ABG VENT RESP RATE (test code = RRA) 14.0 per min ABG TIDAL VOLUME (test code = TVA) 500.0 mL ABG PEEP (test code = PEEPA) 5.0 cmH2O ABG TEMPERATURE (test code = TEMPA) 37.3 Celsius ABG SITE (test code = SITEA) ARTERIAL LINE MODIFIED ALLENS (test code = MODALL) Unable CHECK PERFORMED SODIUM (test code = NA/ABG) 139.8 mEq/L 135-148 N POTASSIUM (test code = K/ABG) 5.4 mEq/L 3.5-4.5 H CHLORIDE (test code = CL/ABG) 117 mEq/L 98-106 H GLUCOSE (test code = GLU/ABG) 81 mg/dL 74-99 N HEMATOCRIT (test code = HCT/ABG) 32 % 35-47 L IONIZED CALCIUM (test code = CAIABG) 1.14 mmol/L 1.1-1.37 N TOTAL HGB (test code = THB) 10.8 gram/dL 11.5-15.5 L HGB O2 SAT (test code = HBOSAT) 97.7 % 94.00-98.00 N CARBOXYHEMOGLOBIN (test code = HOHGBT) 0.2 %totalHg 0.5-1.5 LL Results called to and read back by Renzo 05:13 - 12/04/2018; by Ac Hernandez, NAIL ASSEMBLY MACHINE OPERATOR METHEMOGLOBIN (test code = METHGB) 0.6 % 0.0-1.50 N O2 CONTENT (test code = O2CT) 15.3 % vol 18.0-22.0 L A-A GRADIENT (test code = AAGRADE) 57.8 mm Hg LACTIC [id number] 02:49:00* Test Item Value Reference Range Interpretation Comments LACTIC ACID (test code = LACT) 2.4 mmol/L 0.4-1.9 HH Results called to [id number] by MasonLAB.RA1 12/04/18 0249Critical results verified and read back by Nurse? Y COMPREHENSIVE METABOLIC [id number] 02:49:00* Test Item Value Reference Range Interpretation Comments SODIUM (test code = NA) 148 mmol/L 136-145 H POTASSIUM (test code = K) 5.3 mmol/L 3.5-5.1 H CHLORIDE (test code = CL) 121.0 mmol/L 98-107 H CARBON DIOXIDE (test code = CO2) 16.0 mmol/L 21-32 L ANION GAP (test code = GAP) 16.3 10-20 N GLUCOSE (test code = GLU) 139 mg/dL 74-106 H BLOOD UREA NITROGEN (test code = BUN) 73 mg/dL 7-18 H GLOMERULAR FILTRATION RATE (test code = GFR) 32 mL/min >=60 Estimated GFR by using Modified MDRD formula.Chronic kidney disease is defined as either kidney damageor GFR <60 mL/min/1.73 m2 for >3 months. CREATININE (test code = CREAT) 1.60 mg/dL 0.55-1.02 H Note change in reference range due to change in reagent. BUN/CREATININE RATIO (test code = BUN/CREA) 47.1 10-20 H TOTAL PROTEIN (test code = PROT) 4.4 gram/dL 6.4-8.2 L ALBUMIN (test code = ALB) 1.5 g/dL 3.4-5.0 L GLOBULIN (test code = GLOB) 2.9 gram/dL 2.7-4.2 N ALBUMIN/GLOBULIN RATIO (test code = A/G) 0.5 0.75-1.50 L CALCIUM (test code = CA) 7.1 mg/dL 8.5-10.1 L BILIRUBIN TOTAL (test code = BILT) 0.30 mg/dL 0.0-1.0 N SGOT/AST (test code = AST) 11 IUnit/L 15-37 L SGPT/ALT (test code = ALT) 13 IUnit/L 12-78 N ALKALINE PHOSPHATASE TOTAL (test code = ALKP) 145 IUnit/L 45-117 H Note change in reference range due to change in reagent. CBC W/MANUAL [id number] 02:26:00* Test Item Value Reference Range Interpretation Comments WHITE BLOOD CELL (test code = WBC) 31.6 K/mm3 4.5-12.5 H RESULT VERIFIED BY REPEAT ANALYSIS RED BLOOD CELL (test code = RBC) 3.21 mill/mm3 3.7-5.2 L HEMOGLOBIN (test code = HGB) 9.0 gram/dL 11.5-15.5 L HEMATOCRIT (test code = HCT) 28.4 % 36.0-46.0 L MEAN CELL VOLUME (test code = MCV) 88.5 fL 80-98 N MEAN CELL HGB (test code = MCH) 28.0 picogram 27.0-33.0 N MEAN CELL HGB CONCETRATION (test code = MCHC) 31.7 gram/dL 33.0-36. 0 L RED CELL DISTRIBUTION WIDTH (test code = RDW) 16.0 % 11.6-16. 2 N RED CELL DISTRIBUTION WIDTH SD (test code = RDW-SD) 50.4 fL 37 .0-51.0 N PLATELET COUNT (test code = PLT) 151 K/mm3 150-450 N MEAN PLATELET VOLUME (test code = MPV) 14.6 fL 6.7-11.0 H IMMATURE GRANULOCYTE % (test code = IG%) 1.2 % 0.0-5.0 N NUCLEATED RBC % (test code = NRBC%) 0.1 % 0-0 H NEUTROPHIL # (test code = NT#) 28.13 K/mm3 1.8-7.7 H IMMATURE GRANULOCYTE # (test code = IG#) 0.39 x10 3/uL 0-0.03 H LYMPHOCYTE # (test code = LY#) 1.85 K/mm3 1.0-5.0 N MONOCYTE # (test code = MO#) 1.13 K/mm3 0-0.8 H EOSINOPHIL # (test code = EO#) 0.00 K/mm3 0.0-0.5 N BASOPHIL # (test code = BA#) 0.05 K/mm3 0.0-0.2 N NUCLEATED RBC # (test code = NRBC#) 0.02 K/mm3 0.0-0.1 N MANUAL DIFF REQUIRED (test code = MDIFF) YES STAIN ACCEPTABILITY (test code = STN ACCEPTABLE) STAIN ACCEPTABLE TOTAL CELLS COUNTED (test code = TCC) 100 #CELLS SEGMENTED NEUTROPHILS (test code = SEG) 80 % 39-69 H BAND NEUTROPHIL (test code = BAND) 10 % 0-10 N LYMPHOCYTE (test code = LYMPH) 5 % 25-55 L MONOCYTE (test code = MON) 4 % 0-10 N PLATELET ESTIMATE (test code = PLTEST) ADEQUATE PLATELET MORPHOLOGY (test code = PLTMORPH) NORMAL IMMATURE FORMS (test code = IMMAT) 1 % CBC W/MANUAL [id number] 02:12:00* Test Item Value Reference Range Interpretation Comments WHITE BLOOD CELL (test code = WBC) 31.6 K/mm3 4.5-12.5 H RESULT VERIFIED BY REPEAT ANALYSIS RED BLOOD CELL (test code = RBC) 3.21 mill/mm3 3.7-5.2 L HEMOGLOBIN (test code = HGB) 9.0 gram/dL 11.5-15.5 L HEMATOCRIT (test code = HCT) 28.4 % 36.0-46.0 L MEAN CELL VOLUME (test code = MCV) 88.5 fL 80-98 N MEAN CELL HGB (test code = MCH) 28.0 picogram 27.0-33.0 N MEAN CELL HGB CONCETRATION (test code = MCHC) 31.7 gram/dL 33.0-36. 0 L RED CELL DISTRIBUTION WIDTH (test code = RDW) 16.0 % 11.6-16. 2 N RED CELL DISTRIBUTION WIDTH SD (test code = RDW-SD) 50.4 fL 37 .0-51.0 N PLATELET COUNT (test code = PLT) 151 K/mm3 150-450 N MEAN PLATELET VOLUME (test code = MPV) 14.6 fL 6.7-11.0 H IMMATURE GRANULOCYTE % (test code = IG%) 1.2 % 0.0-5.0 N NUCLEATED RBC % (test code = NRBC%) 0.1 % 0-0 H NEUTROPHIL # (test code = NT#) 28.13 K/mm3 1.8-7.7 H IMMATURE GRANULOCYTE # (test code = IG#) 0.39 x10 3/uL 0-0.03 H LYMPHOCYTE # (test code = LY#) 1.85 K/mm3 1.0-5.0 N MONOCYTE # (test code = MO#) 1.13 K/mm3 0-0.8 H EOSINOPHIL # (test code = EO#) 0.00 K/mm3 0.0-0.5 N BASOPHIL # (test code = BA#) 0.05 K/mm3 0.0-0.2 N NUCLEATED RBC # (test code = NRBC#) 0.02 K/mm3 0.0-0.1 N MANUAL DIFF REQUIRED (test code = MDIFF) YES STAIN ACCEPTABILITY (test code = STN ACCEPTABLE) TOTAL CELLS COUNTED (test code = TCC) #CELLS SEGMENTED NEUTROPHILS (test code = SEG) % 39-69 LYMPHOCYTE (test code = LYMPH) % 25-55 MONOCYTE (test code = MON) % 0-10 EOSINOPHIL (test code = EOS) % 0.0-5.0 CABOT RINGS (test code = CAB) MORPHOLOGY COMMENT (test code = MOC) PLATELET ESTIMATE (test code = PLTEST) PLATELET MORPHOLOGY (test code = PLTMORPH) CBC W/MANUAL [id number] 02:12:00* Test Item Value Reference Range Interpretation Comments WHITE BLOOD CELL (test code = WBC) 31.6 K/mm3 4.5-12.5 H RESULT VERIFIED BY REPEAT ANALYSIS RED BLOOD CELL (test code = RBC) 3.21 mill/mm3 3.7-5.2 L HEMOGLOBIN (test code = HGB) 9.0 gram/dL 11.5-15.5 L HEMATOCRIT (test code = HCT) 28.4 % 36.0-46.0 L MEAN CELL VOLUME (test code = MCV) 88.5 fL 80-98 N MEAN CELL HGB (test code = MCH) 28.0 picogram 27.0-33.0 N MEAN CELL HGB CONCETRATION (test code = MCHC) 31.7 gram/dL 33.0-36. 0 L RED CELL DISTRIBUTION WIDTH (test code = RDW) 16.0 % 11.6-16. 2 N RED CELL DISTRIBUTION WIDTH SD (test code = RDW-SD) 50.4 fL 37 .0-51.0 N PLATELET COUNT (test code = PLT) 151 K/mm3 150-450 N MEAN PLATELET VOLUME (test code = MPV) 14.6 fL 6.7-11.0 H IMMATURE GRANULOCYTE % (test code = IG%) 1.2 % 0.0-5.0 N NUCLEATED RBC % (test code = NRBC%) 0.1 % 0-0 H NEUTROPHIL # (test code = NT#) 28.13 K/mm3 1.8-7.7 H IMMATURE GRANULOCYTE # (test code = IG#) 0.39 x10 3/uL 0-0.03 H LYMPHOCYTE # (test code = LY#) 1.85 K/mm3 1.0-5.0 N MONOCYTE # (test code = MO#) 1.13 K/mm3 0-0.8 H EOSINOPHIL # (test code = EO#) 0.00 K/mm3 0.0-0.5 N BASOPHIL # (test code = BA#) 0.05 K/mm3 0.0-0.2 N NUCLEATED RBC # (test code = NRBC#) 0.02 K/mm3 0.0-0.1 N MANUAL DIFF REQUIRED (test code = MDIFF) YES STAIN ACCEPTABILITY (test code = STN ACCEPTABLE) TOTAL CELLS COUNTED (test code = TCC) #CELLS SEGMENTED NEUTROPHILS (test code = SEG) % 39-69 LYMPHOCYTE (test code = LYMPH) % 25-55 MONOCYTE (test code = MON) % 0-10 EOSINOPHIL (test code = EOS) % 0.0-5.0 CABOT RINGS (test code = CAB) MORPHOLOGY COMMENT (test code = MOC) PLATELET ESTIMATE (test code = PLTEST) PLATELET MORPHOLOGY (test code = PLTMORPH) CBC W/MANUAL [id number] 02:12:00* Test Item Value Reference Range Interpretation Comments WHITE BLOOD CELL (test code = WBC) 31.6 K/mm3 4.5-12.5 H RESULT VERIFIED BY REPEAT ANALYSIS RED BLOOD CELL (test code = RBC) 3.21 mill/mm3 3.7-5.2 L HEMOGLOBIN (test code = HGB) 9.0 gram/dL 11.5-15.5 L HEMATOCRIT (test code = HCT) 28.4 % 36.0-46.0 L MEAN CELL VOLUME (test code = MCV) 88.5 fL 80-98 N MEAN CELL HGB (test code = MCH) 28.0 picogram 27.0-33.0 N MEAN CELL HGB CONCETRATION (test code = MCHC) 31.7 gram/dL 33.0-36. 0 L RED CELL DISTRIBUTION WIDTH (test code = RDW) 16.0 % 11.6-16. 2 N RED CELL DISTRIBUTION WIDTH SD (test code = RDW-SD) 50.4 fL 37 .0-51.0 N PLATELET COUNT (test code = PLT) 151 K/mm3 150-450 N MEAN PLATELET VOLUME (test code = MPV) 14.6 fL 6.7-11.0 H IMMATURE GRANULOCYTE % (test code = IG%) 1.2 % 0.0-5.0 N NUCLEATED RBC % (test code = NRBC%) 0.1 % 0-0 H NEUTROPHIL # (test code = NT#) 28.13 K/mm3 1.8-7.7 H IMMATURE GRANULOCYTE # (test code = IG#) 0.39 x10 3/uL 0-0.03 H LYMPHOCYTE # (test code = LY#) 1.85 K/mm3 1.0-5.0 N MONOCYTE # (test code = MO#) 1.13 K/mm3 0-0.8 H EOSINOPHIL # (test code = EO#) 0.00 K/mm3 0.0-0.5 N BASOPHIL # (test code = BA#) 0.05 K/mm3 0.0-0.2 N NUCLEATED RBC # (test code = NRBC#) 0.02 K/mm3 0.0-0.1 N MANUAL DIFF REQUIRED (test code = MDIFF) YES STAIN ACCEPTABILITY (test code = STN ACCEPTABLE) TOTAL CELLS COUNTED (test code = TCC) #CELLS SEGMENTED NEUTROPHILS (test code = SEG) % 39-69 LYMPHOCYTE (test code = LYMPH) % 25-55 MONOCYTE (test code = MON) % 0-10 EOSINOPHIL (test code = EOS) % 0.0-5.0 MORPHOLOGY COMMENT (test code = MOC) PLATELET ESTIMATE (test code = PLTEST) PLATELET MORPHOLOGY (test code = PLTMORPH) CBC W/MANUAL [id number] 02:12:00* Test Item Value Reference Range Interpretation Comments WHITE BLOOD CELL (test code = WBC) 31.6 K/mm3 4.5-12.5 H RESULT VERIFIED BY REPEAT ANALYSIS RED BLOOD CELL (test code = RBC) 3.21 mill/mm3 3.7-5.2 L HEMOGLOBIN (test code = HGB) 9.0 gram/dL 11.5-15.5 L HEMATOCRIT (test code = HCT) 28.4 % 36.0-46.0 L MEAN CELL VOLUME (test code = MCV) 88.5 fL 80-98 N MEAN CELL HGB (test code = MCH) 28.0 picogram 27.0-33.0 N MEAN CELL HGB CONCETRATION (test code = MCHC) 31.7 gram/dL 33.0-36. 0 L RED CELL DISTRIBUTION WIDTH (test code = RDW) 16.0 % 11.6-16. 2 N RED CELL DISTRIBUTION WIDTH SD (test code = RDW-SD) 50.4 fL 37 .0-51.0 N PLATELET COUNT (test code = PLT) 151 K/mm3 150-450 N MEAN PLATELET VOLUME (test code = MPV) 14.6 fL 6.7-11.0 H IMMATURE GRANULOCYTE % (test code = IG%) 1.2 % 0.0-5.0 N NUCLEATED RBC % (test code = NRBC%) 0.1 % 0-0 H NEUTROPHIL # (test code = NT#) 28.13 K/mm3 1.8-7.7 H IMMATURE GRANULOCYTE # (test code = IG#) 0.39 x10 3/uL 0-0.03 H LYMPHOCYTE # (test code = LY#) 1.85 K/mm3 1.0-5.0 N MONOCYTE # (test code = MO#) 1.13 K/mm3 0-0.8 H EOSINOPHIL # (test code = EO#) 0.00 K/mm3 0.0-0.5 N BASOPHIL # (test code = BA#) 0.05 K/mm3 0.0-0.2 N NUCLEATED RBC # (test code = NRBC#) 0.02 K/mm3 0.0-0.1 N MANUAL DIFF REQUIRED (test code = MDIFF) YES STAIN ACCEPTABILITY (test code = STN ACCEPTABLE) TOTAL CELLS COUNTED (test code = TCC) #CELLS SEGMENTED NEUTROPHILS (test code = SEG) % 39-69 LYMPHOCYTE (test code = LYMPH) % 25-55 MONOCYTE (test code = MON) % 0-10 MORPHOLOGY COMMENT (test code = MOC) PLATELET ESTIMATE (test code = PLTEST) PLATELET MORPHOLOGY (test code = PLTMORPH) CBC W/MANUAL [id number] 02:12:00* Test Item Value Reference Range Interpretation Comments WHITE BLOOD CELL (test code = WBC) 31.6 K/mm3 4.5-12.5 H RESULT VERIFIED BY REPEAT ANALYSIS RED BLOOD CELL (test code = RBC) 3.21 mill/mm3 3.7-5.2 L HEMOGLOBIN (test code = HGB) 9.0 gram/dL 11.5-15.5 L HEMATOCRIT (test code = HCT) 28.4 % 36.0-46.0 L MEAN CELL VOLUME (test code = MCV) 88.5 fL 80-98 N MEAN CELL HGB (test code = MCH) 28.0 picogram 27.0-33.0 N MEAN CELL HGB CONCETRATION (test code = MCHC) 31.7 gram/dL 33.0-36. 0 L RED CELL DISTRIBUTION WIDTH (test code = RDW) 16.0 % 11.6-16. 2 N RED CELL DISTRIBUTION WIDTH SD (test code = RDW-SD) 50.4 fL 37 .0-51.0 N PLATELET COUNT (test code = PLT) 151 K/mm3 150-450 N MEAN PLATELET VOLUME (test code = MPV) 14.6 fL 6.7-11.0 H IMMATURE GRANULOCYTE % (test code = IG%) 1.2 % 0.0-5.0 N NUCLEATED RBC % (test code = NRBC%) 0.1 % 0-0 H NEUTROPHIL # (test code = NT#) 28.13 K/mm3 1.8-7.7 H IMMATURE GRANULOCYTE # (test code = IG#) 0.39 x10 3/uL 0-0.03 H LYMPHOCYTE # (test code = LY#) 1.85 K/mm3 1.0-5.0 N MONOCYTE # (test code = MO#) 1.13 K/mm3 0-0.8 H EOSINOPHIL # (test code = EO#) 0.00 K/mm3 0.0-0.5 N BASOPHIL # (test code = BA#) 0.05 K/mm3 0.0-0.2 N NUCLEATED RBC # (test code = NRBC#) 0.02 K/mm3 0.0-0.1 N MANUAL DIFF REQUIRED (test code = MDIFF) YES STAIN ACCEPTABILITY (test code = STN ACCEPTABLE) TOTAL CELLS COUNTED (test code = TCC) #CELLS SEGMENTED NEUTROPHILS (test code = SEG) % 39-69 LYMPHOCYTE (test code = LYMPH) % 25-55 MONOCYTE (test code = MON) % 0-10 EOSINOPHIL (test code = EOS) % 0.0-5.0 CABOT RINGS (test code = CAB) MORPHOLOGY COMMENT (test code = MOC) PLATELET ESTIMATE (test code = PLTEST) PLATELET MORPHOLOGY (test code = PLTMORPH) PROCALCITONIN (PCT)2018-12-04 01:37:00* Test Item Value Reference Range Interpretation Comments PROCALCITONIN (PCT) (test code = PROCAL) 309.85 ng/ml Results called to [id number] by JOSEY 12/04/18 0137Critical results verified and read back by Nurse? YConcentration Interpretation (ng/mL) <0.51 Sepsis is not likely. Local bacterial infection is possible. (LOW RISK for progression to Sepsis) 0.51 - 2.00 Sepsis is possible, but other conditions are known to elevate PCT as well. (MODERATE RISK for progression to Sepsis) > 2.00 Sepsis is likely, unless other causes are known. (HIGH RISK for progression to Severe Sepsis or Septic Shock) 10.00 High likelihood of Severe Sepsis or Septic or higher Shock. *Increased PCT levels may not always be related to systemic bacterial infection.*Low PCT levels do not automatically exclude the presence of bacterial infection.*All results should be interpreted taking into account the patients history. HGB [id number] 00:25:00* Test Item Value Reference Range Interpretation Comments HEMOGLOBIN (test code = HGB) 8.7 gram/dL 11.5-15.5 L HEMATOCRIT (test code = HCT) 28.0 % 36.0-46.0 L [id number] 00:03:00* Test Item Value Reference Range Interpretation Comments POTASSIUM (test code = K) 5.2 mmol/L 3.5-5.1 H RE SULT VERIFIED BY REPEAT ANALYSIS ARTERIAL BLOOD [id number] 23:29:00* Test Item Value Reference Range Interpretation Comments ARTERIAL BLOOD GAS PH (test code = PHA) 7.33 7.35-7.45 L ARTERIAL BLOOD GAS PCO2 (test code = PCO2A) 26.6 mm Hg 35-45 L ARTERIAL BLOOD GAS PO2 (test code = PO2A) 619.1 mmHg 80-100 H BICARBONATE TOTAL HCO3 (test code = HCO3) 13.6 mmol/L 23.0-27.0 L BASE EXCESS (test code = SHASHA) -11.1 mmol/L -3.0-5.0 LL Results called to and read back by Aracelis 21:54 - 12/03/2018; by Balbir REEVES O2 SATURATION (test code = SATA) 99.3 % 90.0-98.0 H ABG TYPE (test code = TYPEA) Arterial FIO2 (test code = FIO2A) 100.0 SODIUM (test code = NA/ABG) 144.3 mEq/L 135-148 N POTASSIUM (test code = K/ABG) 5.3 mEq/L 3.5-4.5 H CHLORIDE (test code = CL/ABG) 116 mEq/L 98-106 H GLUCOSE (test code = GLU/ABG) 115 mg/dL 74-99 H HEMATOCRIT (test code = HCT/ABG) 29 % 35-47 L IONIZED CALCIUM (test code = CAIABG) 1.21 mmol/L 1.1-1.37 N TOTAL HGB (test code = THB) 10.0 gram/dL 11.5-15.5 L HGB O2 SAT (test code = HBOSAT) 98.0 % 94.00-98.00 N CARBOXYHEMOGLOBIN (test code = HOHGBT) 0.3 %totalHg 0.5-1.5 LL Results called to and read back by Aracelis 21:54 - 12/03/2018; by Balbir METHEMOGLOBIN (test code = METHGB) 1.0 % 0.0-1.50 N O2 CONTENT (test code = O2CT) 15.6 % vol 18.0-22.0 L LACTIC [id number] 22:39:00* Test Item Value Reference Range Interpretation Comments LACTIC ACID (test code = LACT) 3.9 mmol/L 0.4-1.9 HH Results called to [id number] by V.LABFayeSZ 12/03/182237Critical results verified and read back by Nurse? Y LABEL ON PHLEABS DESK.V.LAB.QUR 12/03/18 192 [id number] 22:22:00* Test Item Value Reference Range Interpretation Comments GLUBED (test code = GLUBED) > 500 mg/dL 74-106 HH Performed by certified pulping machine operator [facility] Notified~ PROTHROMBIN [id number] 22:11:00* Test Item Value Reference Range Interpretation Comments PROTHROMBIN TIME PATIENT (test code = PTP) 16.1 seconds 9.0-14.0 H INTERNATIONAL NORMAL RATIO (test code = INR) 1.4 0.8-1.2 H The therapeutic range for oral anticoagulant therapy formost indications is an international normalized ratio (INR)of between 2.0 and 3.0. The recommended therapeutic INRrange for various clinical situations is listed below: Clinical Situation INR range Pulmonary e mbolism treatment (2.0-3.0)Venous thrombosis treatmentVenous thrombosis prophylaxis (high risk surgery)Prevention of systemic embolism from: Acute myocardial infarction Valvular heart disease Atrial fibrillation Mechanical prosthetic heart valves (2.5-3.5) IS PATIENT ON ANTICOAGULANTS? NTHROMBOPLASTIN TIME [id number] 22:11:00* Test Item Value Reference Range Interpretation Comments THROMBOPLASTIN TIME PARTIAL (test code = PTT) 40.3 seconds 25.0-36. 5 H IS PATIENT ON ANTICOAGULANTS? [id number] 22:02:00* Test Item Value Reference Range Interpretation Comments HEMOGLOBIN (test code = HGB) 9.4 gram/dL 11.5-15.5 L RESULT VERIFIED BY REPEAT ANALYSIS CHEMISTRY 8 [id number] 21:37:00* Test Item Value Reference Range Interpretation Comments ISTAT-SODIUM (test code = NAP) mmol/L 135-148 ISTAT-POTASSIUM (test code = KP) mmol/L 3.5-5.5 ISTAT-CHLORIDE (test code = CLP) mmol/L 101-109 ISTAT CARBON DIOXIDE (test code = ISTAT-CO2) mmol/L 21-32 L ISTAT CALCIUM IONIZED (test code = ISTAT-ERICH) mg/dL 1.12-1.3 2 ISTAT-ANION GAP (test code = GAPP) MEQ/L 10-20 ISTAT-GLUCOSE (test code = GLUP) mg/dL 74-106 H ISTAT-BUN (test code = BUNP) mg/dL 3-21 H BEDSIDE CREATININE (test code = CREATBED) mg/dL 0.7-1.3 HH GLOMERULAR FILTRATION RATE POC (test code = GFRBED) 26 >6 0 LL CHEMISTRY 8 [id number] 21:37:00* Test Item Value Reference Range Interpretation Comments ISTAT-SODIUM (test code = NAP) 145 mmol/L 135-148 N ISTAT-POTASSIUM (test code = KP) 5.5 mmol/L 3.5-5.5 N ISTAT-CHLORIDE (test code = CLP) 116 mmol/L 101-109 H ISTAT CARBON DIOXIDE (test code = ISTAT-CO2) 16.0 mmol/L 21-32 L ISTAT CALCIUM IONIZED (test code = ISTAT-ERICH) 1.30 mg/dL 1.12-1.3 2 N ISTAT-ANION GAP (test code = GAPP) 19.0 MEQ/L 10-20 N ISTAT-GLUCOSE (test code = GLUP) 148 mg/dL 74-106 H ISTAT-BUN (test code = BUNP) 68 mg/dL 3-21 H BEDSIDE CREATININE (test code = CREATBED) 1.9 mg/dL 0.7-1.3 HH GLOMERULAR FILTRATION RATE POC (test code = GFRBED) 26 >6 0 LL - CT ABD PELVIS W/O [id number] 20:48:00 Name: ZOILAMOJGAN MOLINA [facility] : 1950 Age/S: 68 / F [address] [facility] Unit #: [id number] Loc: [place] [address] Phys: Rikki Gomez MD Acct: [id number] Dis Date: Status: DIS IN PHONE #: [phone] Exam Date: 12/03/20182015 FAX #: [phone] Reason: bloody emesis EXAMS: CPT CODE: [id number] CT ABD PELVIS W/O CONT [id number] REASON FOR EXAM: bloody emesis EXAM ORDER DATE: 12/03/2018 3:19 PM Ordering Crispin: Rikki Gomez MD PROCEDURE: - CT ABD PELVIS W/O CONT COMPARISON: FINDINGS: CT images of the abdomen and pelvis were obtained without IV and without oral contrast at 5mm. Dose modulation, iterative reconstruction, and/or weight based adjustment of the MA/KV was utilized to reduce the radiation dose to as low as reasonably achievable. The liver, spleen, and pancreas are grossly within normal limits. The gallbladder is minimally distended but multiple small gallstones Small nonobstructing (0.5 cm) right renal stone. The urinary bladder is unremarkable. The colon, small bowel, and stomach are within normal limits without evidence of obstruction. The appendix was not seen. No evidence of free air or free fluid. The patient is status post hysterectomy IMPRESSION: Small right ventral hernia with herniation of mesenteric fat through the hernia neck. Chronic left hip dislocation. at 2047 Reported and signed by: Brayan Toro M.D. CC: Rikki Gomez MD Technologist:Cindy Paredes RT(R) CTDI: DLP: Trnscb Date/Time: 12/03/2018 (2047) t.SDR.VTL Orig Print D/T: S: 12/03/2018 (2050) PAGE 1 Signed Report - CT ABD PELVIS W/O [id number] 20:48:00 Name: MOJGAN CUMMINGS [facility] : 1950 Age/S: 68 / F [address] [facility] Unit #: [id number] Loc: [facility] [place] [address] Phys: Rikki Gomez MD Acct: [id number] Dis Date: Status: ADM IN PHONE #: [phone] Exam Date: 12/03/20182015 FAX #: [phone] Reason: bloody emesis EXAMS: CPT CODE: [id number] CT ABD PELVIS W/O CONT [id number] REASON FOR EXAM: bloody emesis EXAM ORDER DATE: 12/03/2018 3:19 PM Ordering Crispin: Rikki Gomez MD PROCEDURE: - CT ABD PELVIS W/O CONT COMPARISON: FINDINGS: CT images of the abdomen and pelvis were obtained without IV and without oral contrast at 5mm. Dose modulation, iterative reconstruction, and/or weight based adjustment of the MA/KV was utilized to reduce the radiation dose to as low as reasonably achievable. The liver, spleen, and pancreas are grossly within normal limits. The gallbladder is minimally distended but multiple small gallstones Small nonobstructing (0.5 cm) right renal stone. The urinary bladder is unremarkable. The colon, small bowel, and stomach are within normal limits without evidence of obstruction. The appendix was not seen. No evidence of free air or free fluid. The patient is status post hysterectomy IMPRESSION: Small right ventral hernia with herniation of mesenteric fat through the hernia neck. Chronic left hip dislocation. at 2047 Reported and signed by: Brayan Toro M.D. CC: Rikki Gomez MD Technologist:Cindy Paredes RT(R) CTDI: DLP: Trnscb Date/Time: 12/03/2018 (2047) t.SDR.VTL Orig Print D/T: S: 12/03/2018 (2050) CTDI: DLP: PAGE 1 Signed Report - CT ABD PELVIS W/O [id number] 20:48:00 Name: MOJGAN CUMMINGS [facility] : 1950 Age/S: 68 / F [address] [facility] Unit #: [id number] Loc: [place] [address] Phys: Juleita Gomez MD Acct: [id number] Di s Date: Status: DIS IN PHONE #: Exam Date: 12/03/20182015 FAX #: Reason: bloody emesis EXAMS: CPT CODE: [id number] CT ABD PELVIS W/O CONT 74750 REASON FOR EXAM: bloody emesis EXAM ORDER DATE: 12/03/2018 3:19 PM Dalton stauffer M.D.: Rikki Gomez MD PROCEDURE: - CT ABD PELVIS W/O CONT COMPARISON: FINDINGS: CT images of the abdomen and pelvis were obtained without IV and without oral contrast at 5mm. Dose mod ulation, iterative reconstruction, and/or weight based adjustment of the M A/KV was utilized to reduce the radiation dose to as low as reasonably achievable. The liver, spleen, and pancreas are grossly within normal limits. The gallbladder is minimally distended but multiple small gallstones Small nonobstructing (0.5 cm) right renal stone. The urinary bladder is unremarkable. The colon, small bowel, and stomach are within normal limits without evidence of obstruction. The ap pendix was not seen. No evidence of free air or free fluid. The pa tient is status post hysterectomy IMPRESSION: Small right ventral hernia with herniation of mesenteric fat through the hernia neck . Chronic left hip dislocation. at 2047 Reported and signed by: Brayan Toro M.D. CC: Rikki Gomez MD Techno logist:Cindy Paredes RT(R) CTDI: DLP: Trnscb Date/Time : 12/03/2018 (2047) t.LALOL Orig Print D/T: S: 12/04/19 (2050) PAGE 1 Signed Report LACTIC [id number] 19:19:00* Test Item Value Reference Range Interpretation Comments LACTIC ACID (test code = LACT) 2.7 mmol/L 0.4-1.9 HH Results called to [id number] by V.[email or web address].QUR 12/03/18 1918Critical results verified and read back by Nurse? Y LACTIC [id number] 17:51:00* Test Item Value Reference Range Interpretation Comments LACTIC ACID (test code = LACT) 3.9 mmol/L 0.4-1.9 HH Results called to [id number] by V.LAB.SZ 12/03/18 1750Critical results verified and read back by Nurse? Y BASIC METABOLIC [id number] 17:49:00* Test Item Value Reference Range Interpretation Comments SODIUM (test code = NA) 141 mmol/L 136-145 N POTASSIUM (test code = K) 7.1 mmol/L 3.5-5.1 HH Re sults called to [id number] by V.LAB.SZ 12/03/18 1746Critical results verified and read back by Nurse? Y CHLORIDE (test code = CL) 113.0 mmol/L 98-107 H CARBON DIOXIDE (test code = CO2) 13.0 mmol/L 21-32 L ANION GAP (test code = GAP) 22.1 10-20 H GLUCOSE (test code = GLU) 120 mg/dL 74-106 H BLOOD UREA NITROGEN (test code = BUN) 80 mg/dL 7-18 H GLOMERULAR FILTRATION RATE (test code = GFR) 26 mL/min >=60 Estimated GFR by using Modified MDRD formula.Chronic kidney disease is defined as either kidney damageor GFR <60 mL/min/1.73 m2 for >3 months. CREATININE (test code = CREAT) 1.90 mg/dL 0.55-1.02 H Note change in reference range due to change in reagent. BUN/CREATININE RATIO (test code = BUN/CREA) 41.7 10-20 H CALCIUM (test code = CA) 8.5 mg/dL 8.5-10.1 N HEPATIC FUNCTION [id number] 17:49:00* Test Item Value Reference Range Interpretation Comments TOTAL PROTEIN (test code = PROT) 6.0 gram/dL 6.4-8.2 L ALBUMIN (test code = ALB) 2.0 g/dL 3.4-5.0 L GLOBULIN (test code = GLOB) 4.0 gram/dL 2.7-4.2 N ALBUMIN/GLOBULIN RATIO (test code = A/G) 0.5 0.75-1.50 L BILIRUBIN TOTAL (test code = BILT) 0.40 mg/dL 0.0-1.0 N BILIRUBIN DIRECT (test code = BILD) 0.15 mg/dL 0.0-0.20 N SGOT/AST (test code = AST) 13 IUnit/L 15-37 L SGPT/ALT (test code = ALT) 18 IUnit/L 12-78 N ALKALINE PHOSPHATASE TOTAL (test code = ALKP) 198 IUnit/L 45-117 H Note change in reference range due to change in reagent. [id number] 17:49:00* Test Item Value Reference Range Interpretation Comments LIPASE (test code = LIP) 14 U/L 73.0-393.0 L HCG SERUM [id number] 17:49:00* Test Item Value Reference Range Interpretation Comments HCG SERUM QUAL (test code = HCGQL) NEGATIVE NEGATIVE This HCGQL test is NOT applicable for MALE patients.Check with nurse about probable order error.If Tumor Marker Test needed, nurse should order test "HCGTU"(Test #550.45645) [id number] 17:49:00* Test Item Value Reference Range Interpretation Comments TROPONIN-I (test code = TROPI) <0.015 ng/mL 0-0.045 N BASIC METABOLIC [id number] 17:46:00* Test Item Value Reference Range Interpretation Comments SODIUM (test code = NA) mmol/L 136-145 POTASSIUM (test code = K) mmol/L 3.5-5.1 CHLORIDE (test code = CL) mmol/L 98-107 CARBON DIOXIDE (test code = CO2) mmol/L 21-32 ANION GAP (test code = GAP) 10-20 GLUCOSE (test code = GLU) mg/dL 74-106 BLOOD UREA NITROGEN (test code = BUN) mg/dL 7-18 GLOMERULAR FILTRATION RATE (test code = GFR) mL/min >=60 CREATININE (test code = CREAT) mg/dL 0.55-1.02 BUN/CREATININE RATIO (test code = BUN/CREA) 10-20 CALCIUM (test code = CA) mg/dL 8.5-10.1 HEPATIC FUNCTION [id number] 17:46:00* Test Item Value Reference Range Interpretation Comments TOTAL PROTEIN (test code = PROT) gram/dL 6.4-8.2 ALBUMIN (test code = ALB) g/dL 3.4-5.0 GLOBULIN (test code = GLOB) gram/dL 2.7-4.2 ALBUMIN/GLOBULIN RATIO (test code = A/G) 0.75-1.50 BILIRUBIN TOTAL (test code = BILT) mg/dL 0.0-1.0 BILIRUBIN DIRECT (test code = BILD) mg/dL 0.0-0.20 SGOT/AST (test code = AST) IUnit/L 15-37 SGPT/ALT (test code = ALT) IUnit/L 12-78 ALKALINE PHOSPHATASE TOTAL (test code = ALKP) IUnit/L 45-117 [id number] 17:46:00* Test Item Value Reference Range Interpretation Comments LIPASE (test code = LIP) U/L 73.0-393.0 HCG SERUM [id number] 17:46:00* Test Item Value Reference Range Interpretation Comments HCG SERUM QUAL (test code = HCGQL) NEGATIVE NEGATIVE This HCGQL test is NOT applicable for MALE patients.Check with nurse about probable order error.If Tumor Marker Test needed, nurse should order test "HCGTU"(Test #550.52781) [id number] 17:46:00* Test Item Value Reference Range Interpretation Comments TROPONIN-I (test code = TROPI) ng/mL 0-0.045 URINALYSIS [id number] 16:57:00* Test Item Value Reference Range Interpretation Comments UA COLOR (test code = COLU) LAILA YELLOW A UA APPEARANCE (test code = APPU) Cloudy CLEAR A UA GLUCOSE DIPSTICK (test code = DGLUU) NEGATIVE mg/dL NEGATIVE UA BILIRUBIN DIPSTICK (test code = BILU) 1+ (Small 0.5-1.0) mg/dL N EGATIVE A UA KETONE DIPSTICK (test code = KETU) 5 (Trace) mg/dL NEGATIVE A UA SPECIFIC GRAVITY (test code = SGU) 1.026 1.001-1.035 UA BLOOD DIPSTICK (test code = ADEOLA) 3+ (Large) NEGATIVE A UA PH DIPSTICK (test code = RANDELL) 5.0 5.0-8.0 UA PROTEIN DIPSTICK (test code = PROU) 100 (2+) mg/dL NEGATIVE A UA UROBILINIOGEN DIPSTICK (test code = URO) NEGATIVE mg/dL NEGATIVE UA NITRITE DIPSTICK (test code = RAFIA) NEGATIVE NEGATIVE UA LEUKOCYTE ESTERASE W REFLEX (test code = LEUUR) 3+ NEG ATIVE A UA WBC (test code = WBCU) >50 #/HPF 0-5 A UA RBC (test code = RBCU) >20 #/HPF 0-5 A UA WBC CLUMPS (test code = WBCUCL) >10 /HPF NONE A UA EPITHELIAL CELLS (test code = EPIU) FEW per HPF FEW UA BACTERIA (test code = BACU) MANY #/HPF NONE A UA MUCUS (test code = MUCU) FEW #/LPF FEW Urine Source? Clean CatchCHEMISTRY 8 [id number] 16:48:00* Test Item Value Reference Range Interpretation Comments ISTAT-SODIUM (test code = NAP) mmol/L 135-148 ISTAT-POTASSIUM (test code = KP) mmol/L 3.5-5.5 ISTAT-CHLORIDE (test code = CLP) mmol/L 101-109 ISTAT CARBON DIOXIDE (test code = ISTAT-CO2) mmol/L 21-32 L ISTAT CALCIUM IONIZED (test code = ISTAT-ERICH) mg/dL 1.12-1.3 2 ISTAT-ANION GAP (test code = GAPP) MEQ/L 10-20 ISTAT-GLUCOSE (test code = GLUP) mg/dL 74-106 H ISTAT-BUN (test code = BUNP) mg/dL 3-21 H BEDSIDE CREATININE (test code = CREATBED) mg/dL 0.7-1.3 HH GLOMERULAR FILTRATION RATE POC (test code = GFRBED) 26 >6 0 LL CHEMISTRY 8 [id number] 16:48:00* Test Item Value Reference Range Interpretation Comments ISTAT-SODIUM (test code = NAP) 140 mmol/L 135-148 N ISTAT-POTASSIUM (test code = KP) 7.1 mmol/L 3.5-5.5 HH ISTAT-CHLORIDE (test code = CLP) 115 mmol/L 101-109 H ISTAT CARBON DIOXIDE (test code = ISTAT-CO2) 14.0 mmol/L 21-32 L ISTAT CALCIUM IONIZED (test code = ISTAT-ERICH) 1.12 mg/dL 1.12-1.3 2 N ISTAT-ANION GAP (test code = GAPP) 19.0 MEQ/L 10-20 N ISTAT-GLUCOSE (test code = GLUP) 119 mg/dL 74-106 H ISTAT-BUN (test code = BUNP) 63 mg/dL 3-21 H BEDSIDE CREATININE (test code = CREATBED) 1.9 mg/dL 0.7-1.3 HH GLOMERULAR FILTRATION RATE POC (test code = GFRBED) 26 >6 0 LL URINALYSIS [id number] 16:44:00* Test Item Value Reference Range Interpretation Comments UA COLOR (test code = COLU) LAILA YELLOW A UA APPEARANCE (test code = APPU) Cloudy CLEAR A UA GLUCOSE DIPSTICK (test code = DGLUU) NEGATIVE mg/dL NEGATIVE UA BILIRUBIN DIPSTICK (test code = BILU) 1+ (Small 0.5-1.0) mg/dL N EGATIVE A UA KETONE DIPSTICK (test code = KETU) 5 (Trace) mg/dL NEGATIVE A UA SPECIFIC GRAVITY (test code = SGU) 1.026 1.001-1.035 UA BLOOD DIPSTICK (test code = ADEOLA) 3+ (Large) NEGATIVE A UA PH DIPSTICK (test code = RANDELL) 5.0 5.0-8.0 UA PROTEIN DIPSTICK (test code = PROU) 100 (2+) mg/dL NEGATIVE A UA UROBILINIOGEN DIPSTICK (test code = URO) NEGATIVE mg/dL NEGATIVE UA NITRITE DIPSTICK (test code = RAFIA) NEGATIVE NEGATIVE UA LEUKOCYTE ESTERASE W REFLEX (test code = LEUUR) 3+ NEG ATIVE A UA WBC (test code = WBCU) per HPF 0-5 Urine Source? Clean CatchCBC W/O [id number] 16:43:00* Test Item Value Reference Range Interpretation Comments WHITE BLOOD CELL (test code = WBC) 38.4 K/mm3 4.5-12.5 H RED BLOOD CELL (test code = RBC) 4.30 mill/mm3 3.7-5.2 N HEMOGLOBIN (test code = HGB) 12.0 gram/dL 11.5-15.5 N HEMATOCRIT (test code = HCT) 39.7 % 36.0-46.0 N MEAN CELL VOLUME (test code = MCV) 92.3 fL 80-98 N MEAN CELL HGB (test code = MCH) 27.9 picogram 27.0-33.0 N MEAN CELL HGB CONCETRATION (test code = MCHC) 30.2 gram/dL 33.0-36. 0 L RED CELL DISTRIBUTION WIDTH (test code = RDW) 16.6 % 11.6-16. 2 H PLATELET COUNT (test code = PLT) 185 K/mm3 150-450 N MEAN PLATELET VOLUME (test code = MPV) TEST NOT PERFORMED fL 6.7-11 .0 POC LACTIC [id number] 16:27:00* Test Item Value Reference Range Interpretation Comments POC LACTIC ACID (test code = POCLAC) 3.69 MMOL/L 0.4-2.2 H - XR CHEST 1 [id number] 13:18:00 FAX: Esau Weaver DO [place]: B St: DEP Name: MOJGAN SAUCEDO [facility] : [birth year] Age/S: 68/F [address] [facility] Unit #: [id number] Loc: [place] [address] Phys: Esau Weaver DO Acct: [id number] Dis Date: Status: DEP ER PHONE #: [phone] Exam Date: 11/27/2018 1245 FAX #: [phone] Reason: CHEST PAIN EXAMS: CPT CODE: [id number] XR CHEST 1 V 29191 HISTORY: Pain after fall. COMPARISON: Chest x-ray from November 05, 2017. Tracheostomy tube is unchanged. No pneumothorax is noted. No acute infiltrates, effusion or congestion is noted. The cardiac and mediastinal adelia houette are within normal limits. IMPRESSION: No acute infiltrates, effusion or congestion. Tracheostomy tube is unc hanged. SINGLE VIEW PELVIS AND 2 VIEWS OF THE LEFT FEMUR: COMPARISON: CT pelvis from September 15, 2017. 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 The femoral component displaced supe rior laterally with pseudoacetabulum formation along the iliac margin. T his is unchanged from previous CT scan from September 15, 2017. Pelvic ri ng appears intact on a single view. SI joints are preserved. Tri compartment joint space narrowing within the knee. Articular surfaces ar e well marginated. The lateral view is very limited due to technique and positioning. 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 No acute fracture or dislocation. 2 VIEWS OF THE RIGHT FEMUR: No acute fracture or dislocation. Marginal osteophytes from the greater trochanter. Tricompartment joint space narrowing within the knee . Osteopenia. No AVN of the femoral head. Soft tissues are normal. IMPRESSION PAGE 1 Signed Report (CONTINUED) FAX: Esau Weaver DO [place]: St: DEP ---- Name: MOJGAN CUMMINGS [facility] : 1950 Age/S: 68/F [address] [facility] Unit #: [id number] Loc: [place] [address] Phys: Esau Weaver DO Acct: [id number] Dis Date: Status: DEP ER PHONE # : [phone] Exam Date: 11/27/2018 1245 FAX #: Reason: CHEST PAIN EXAMS : CPT CODE: [id number] XR CHES T 1 V 37135 <Continued> No acute fracture or dislocation of the right hip. DJD. at 1318 Reported and signed by: Clem Grissom M.D. CC: Esau Weaver DO Technologist: Eric ALEXANDRA(R) Trnscrd Date/Time/By: 11/27/2018 (1318) : By: [email or web address] Orig Print D/T: S: 11/27/2018 (5168) PAGE 2 Signed Report - XR PELVIS 09/20 [id number] 13:18:00 FAX: Esau Weaver DO [place]: St: DEP Name: MOJGAN SAUCEDO [facility] : [birth year] Age/S: 68/F [address] Unit #: [id number] Loc: [place], [place] [address] Phys: Esau Weaver Faith VENEGAS Acct: [id number] Dis Date: Status: DEP ER PHONE #: [phone] Exam Date: 11/27/2018 1245 FAX #: [phone] Reason: PELVIC PAIN EXAMS: CPT CODE: [id number] XR PELVIS 1/2 VIEWS 70716 HISTORY: Pain after fall. COMPARISON: Chest x-ray from November 05, 2017. Tracheostomy tube is unchanged. No pneumothorax is noted. No acute infiltrates, effusion or congestion is noted. The cardiac and mediastinal adelia houette are within normal limits. IMPRESSION: No acute infiltrates, effusion or congestion. Tracheostomy tube is unc hanged. SINGLE VIEW PELVIS AND 2 VIEWS OF THE LEFT FEMUR: COMPARISON: CT pelvis from September 15, 2017. 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 The femoral component displaced supe rior laterally with pseudoacetabulum formation along the iliac margin. T his is unchanged from previous CT scan from September 15, 2017. Pelvic ri ng appears intact on a single view. SI joints are preserved. Tri compartment joint space narrowing within the knee. Articular surfaces ar e well marginated. The lateral view is very limited due to technique and positioning. 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 No acute fracture or dislocation. 2 VIEWS OF THE RIGHT FEMUR: No acute fracture or dislocation. Marginal osteophytes from the greater trochanter. Tricompartment joint space narrowing within the knee . Osteopenia. No AVN of the femoral head. Soft tissues are normal. IMPRESSION PAGE 1 Signed Report (CONTINUED) FAX: Esau Weaver DO [place]: B St: DEP ---- Name: MOJGAN CUMMINGS [facility] : 1950 Age/S: 68/F [address] Unit #: [id number] Loc: [place] [address] Phys: Esau Weaver DO Acct: [id number] Dis Date: Status: DEP ER PHONE # : [phone] Exam Date: 11/27/2018 1245 FAX #: Reason: PELVIC PAIN EXAMS : CPT CODE: [id number] XR PELV IS 1/2 VIEWS 47451 <Continued> No acute fracture or dislocation of the right hip. DJD. at 1318 Reported and signed by: Clem Grissom M.D. CC: Esau Weaver DO Technologist: Eric ALEXANDRA(R) Trnscrd Date/Time/By: 11/27/2018 (8747) : By: [email or web address] Orig Print D/T: S: 11/27/2018 (1240) PAGE 2 Signed Report - XR FEMUR MIN 2 VWS [id number] 13:18:00 FAX: Esau Weaver DO [place]: B St: DEP Name: Faith LOWEMOJGAN [facility] : [birth year] Age/S: 68/F [address] Unit #: [id number] Loc: [place] [address] Phys: Esau Weaver DO Acct: [id number] Dis Date: Status: DEP ER PHONE #: [phone] Exam Date: 11/27/2018 1245 FAX #: [phone] Reason: THIGH PAIN EXAMS: CPT CODE: [id number] XR FEMUR MIN [address] [place] [address] HISTORY: Pain after fall. COMPARISON: Chest x-ray from November 05, 2017. Tracheostomy tube is unchanged. No pneumothorax is noted. No acute infiltrates, effusion or congestion is noted. The cardiac and mediastinal adelia houette are within normal limits. IMPRESSION: No acute infiltrates, effusion or congestion. Tracheostomy tube is unc hanged. SINGLE VIEW PELVIS AND 2 VIEWS OF THE LEFT FEMUR: COMPARISON: CT pelvis from September 15, 2017. 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 The femoral component displaced supe rior laterally with pseudoacetabulum formation along the iliac margin. T his is unchanged from previous CT scan from September 15, 2017. Pelvic ri ng appears intact on a single view. SI joints are preserved. Tri compartment joint space narrowing within the knee. Articular surfaces ar e well marginated. The lateral view is very limited due to technique and positioning. 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 No acute fracture or dislocation. 2 VIEWS OF THE RIGHT FEMUR: No acute fracture or dislocation. Marginal osteophytes from the greater trochanter. Tricompartment joint space narrowing within the knee . Osteopenia. No AVN of the femoral head. Soft tissues are normal. IMPRESSION PAGE 1 Signed Report (CONTINUED) FAX: Esau Weaver DO [place]: B St: DEP ---- Name: MOJGAN CUMMINGS [facility] : 1950 Age/S: 68/F [address] [facility] Unit #: [id number] Loc: [place] [address] Phys: Esau Weaver T DO Acct: [id number] Dis Date: Status: DEP ER PHONE # : [phone] Exam Date: 11/27/2018 1245 FAX #: Reason: THIGH PAIN EXAMS : CPT CODE: [id number] XR FEMU R MIN [address] [place] [address] <Continued> No acute fracture or dislocation of the right hip. DJD. at 1318 Reported and signed by: Clem Grissom M.D. CC: Esau Weaver DO Technologist: JERAMIE LOPEZ RT(R); Eric Chavez RT(R) [facility] Date/Time/By: 11/27/2018 (1800) : By: [email or web address] Orig Print D/T: S: 11/27/2018 (8243) PAGE 2 Signed Report - XR FEMUR MIN 2 VWS [id number] 13:18:00 FAX: Esau Weaver DO [place]: B St: [facility] Name: MOJGAN SAUCEDO [facility] : [birth year] Age/S: 68/F [address] [facility] Unit #: [id number] Loc: [facility] [place] [address] Phys: Esau Weaver DO Acct: [id number] Dis Date: Status: DEP ER PHONE #: [phone] Exam Date: 11/27/2018 1245 FAX #: [phone] Reason: THIGH PAIN EXAMS: CPT CODE: [id number] XR FEMUR MIN [address] [place] [address] HISTORY: Pain after fall. COMPARISON: Chest x-ray from November 05, 2017. Tracheostomy tube is unchanged. No pneumothorax is noted. No acute infiltrates, effusion or congestion is noted. The cardiac and mediastinal adelia houette are within normal limits. IMPRESSION: No acute infiltrates, effusion or congestion. Tracheostomy tube is unc hanged. SINGLE VIEW PELVIS AND 2 VIEWS OF THE LEFT FEMUR: COMPARISON: CT pelvis from September 15, 2017. 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 The femoral component displaced supe rior laterally with pseudoacetabulum formation along the iliac margin. T his is unchanged from previous CT scan from September 15, 2017. Pelvic ri ng appears intact on a single view. SI joints are preserved. Tri compartment joint space narrowing within the knee. Articular surfaces ar e well marginated. The lateral view is very limited due to technique and positioning. 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 No acute fracture or dislocation. 2 VIEWS OF THE RIGHT FEMUR: No acute fracture or dislocation. Marginal osteophytes from the greater trochanter. Tricompartment joint space narrowing within the knee . Osteopenia. No AVN of the femoral head. Soft tissues are normal. IMPRESSION PAGE 1 Signed Report (CONTINUED) FAX: Esau Weaver DO [place]: B St: DEP ---- Name: MOJGAN CUMMINGS [facility] : 1950 Age/S: 68/F [address] [facility] Unit #: [id number] Loc: [place] [address] Phys: Esau Weaver DO Acct: [id number] Dis Date: Status: DEP ER PHONE # : [phone] Exam Date: 11/27/2018 1245 FAX #: Reason: THIGH PAIN EXAMS : CPT CODE: [id number] XR FEMU R MIN [address] [place] [address] <Continued> No acute fracture or dislocation of the right hip. DJD. at 1318 Reported and signed by: Clem Grissom M.D. CC: Esau Weaver DO Technologist: JERAMIE LOPEZ RT(R); Eric Chavez RT(R) Trnscrd Date/Time/By: 11/27/2018 (9557) : By: [email or web address] Orig Print D/T: S: 11/27/2018 (5579) PAGE 2 Signed Report - XR PELVIS 1/2 [id number] 13:18:00 FAX: Esau Weaver DO [place]: St: REG Name: MOJGAN SAUCEDO [facility] : [birth year] Age/S: 68/F [address] [facility] Unit #: [id number] Loc: [place] [address] Phys: Esau Weaver DO Acct: [id number] Dis Date: Status: REG ER PHONE #: [phone] Exam Date: 11/27/2018 1245 FAX #: [phone] Reason: PELVIC PAIN EXAMS: CPT CODE: [id number] XR PELVIS 1/2 VIEWS 92950 HISTORY: Pain after fall. COMPARISON: Chest x-ray from November 05, 2017. Tracheostomy tube is unchanged. No pneumothorax is noted. No acute infiltrates, effusion or congestion is noted. The cardiac and mediastinal adelia houette are within normal limits. IMPRESSION: No acute infiltrates, effusion or congestion. Tracheostomy tube is unc hanged. SINGLE VIEW PELVIS AND 2 VIEWS OF THE LEFT FEMUR: COMPARISON: CT pelvis from September 15, 2017. 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 The femoral component displaced supe rior laterally with pseudoacetabulum formation along the iliac margin. T his is unchanged from previous CT scan from September 15, 2017. Pelvic ri ng appears intact on a single view. SI joints are preserved. Tri compartment joint space narrowing within the knee. Articular surfaces ar e well marginated. The lateral view is very limited due to technique and positioning. 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 No acute fracture or dislocation. 2 VIEWS OF THE RIGHT FEMUR: No acute fracture or dislocation. Marginal osteophytes from the greater trochanter. Tricompartment joint space narrowing within the knee . Osteopenia. No AVN of the femoral head. Soft tissues are normal. IMPRESSION PAGE 1 Signed Report (CONTINUED) FAX: Esau Weaver DO [place]: St: REG ---- Name: MOJGAN CUMMINGS [facility] : 1950 Age/S: 68/F [address] [facility] Unit #: [id number] Loc: [place] [address] Phys: Esau Weaver DO Acct: [id number] Dis Date: Status: REG ER PHONE # : [phone] Exam Date: 11/27/2018 1243 FAX #: [phone] Reason: PELVIC PAIN EXAMS : CPT CODE: [id number] XR PELV IS 1/2 VIEWS 50399 <Continued> No acute fracture or dislocation of the right hip. DJD. at 1318 Reported and signed by: Clem Grissom M.D. CC: Esau Weaver DO Technologist: Eric Chavez RT(R) Trnscrd Date/Time/By: 11/27/2018 (8943) : By: [email or web address] Orig Print D/T: S: 11/27/2018 (1034) PAGE 2 Signed Report - XR FEMUR MIN 2 VWS [id number] 13:18:00 FAX: Esau Weaver DO [place]: B St: REG Name: MOJGAN SAUCEDO [facility] : [birth year] Age/S: 68/F [address] [facility] Unit #: [id number] Loc: [place] [address] Phys: MegEsau DO Acct: [id number] Dis Date: Status: REG ER PHONE #: [phone] Exam Date: 11/27/2018 1245 FAX #: [phone] Reason: THIGH PAIN EXAMS: CPT CODE: [id number] XR FEMUR MIN [address] [place] [address] HISTORY: Pain after fall. COMPARISON: Chest x-ray from November 05, 2017. Tracheostomy tube is unchanged. No pneumothorax is noted. No acute infiltrates, effusion or congestion is noted. The cardiac and mediastinal adelia houette are within normal limits. IMPRESSION: No acute infiltrates, effusion or congestion. Tracheostomy tube is unc hanged. SINGLE VIEW PELVIS AND 2 VIEWS OF THE LEFT FEMUR: COMPARISON: CT pelvis from September 15, 2017. 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 The femoral component displaced supe rior laterally with pseudoacetabulum formation along the iliac margin. T his is unchanged from previous CT scan from September 15, 2017. Pelvic ri ng appears intact on a single view. SI joints are preserved. Tri compartment joint space narrowing within the knee. Articular surfaces ar e well marginated. The lateral view is very limited due to technique and positioning. 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 No acute fracture or dislocation. 2 VIEWS OF THE RIGHT FEMUR: No acute fracture or dislocation. Marginal osteophytes from the greater trochanter. Tricompartment joint space narrowing within the knee . Osteopenia. No AVN of the femoral head. Soft tissues are normal. IMPRESSION PAGE 1 Signed Report (CONTINUED) FAX: Esau Weaver DO [place]: B St: REG ---- Name: MOJGAN CUMMINGS [facility] : 1950 Age/S: 68/F [address] [facility] Unit #: [id number] Loc: [place] [address] Phys: Esau Weaver DO Acct: [id number] Dis Date: Status: REG ER PHONE # : [phone] Exam Date: 11/27/2018 1245 FAX #: Reason: THIGH PAIN EXAMS : CPT CODE: [id number] XR FEMU R MIN [address] [place] [address] <Continued> No acute fracture or dislocation of the right hip. DJD. at 1318 Reported and signed by: Clem Grissom M.D. CC: Esau Weaver DO Technologist: JERAMIE LOPEZ RT(R); Eric Chavez RT(R) [facility] Date/Time/By: 11/27/2018 (1318) : By: [email or web address] Orig Print D/T: S: 11/27/2018 (1328) PAGE 2 Signed Report - XR FEMUR MIN 2 VWS [id number] 13:18:00 FAX: Esau Weaver DO [place]: St: REG Name: MOJGAN SAUCEDO [facility] : [birth year] Age/S: 68/F [address] Unit #: [id number] Loc: [place] [address] Phys: Esau Weaver DO Acct: [id number] Dis Date: Status: REG ER PHONE #: [phone] Exam Date: 11/27/2018 1245 FAX #: [phone] Reason: THIGH PAIN EXAMS: CPT CODE: [id number] XR FEMUR MIN [address] [place] [address] HISTORY: Pain after fall. COMPARISON: Chest x-ray from November 05, 2017. Tracheostomy tube is unchanged. No pneumothorax is noted. No acute infiltrates, effusion or congestion is noted. The cardiac and mediastinal adelia houette are within normal limits. IMPRESSION: No acute infiltrates, effusion or congestion. Tracheostomy tube is unc hanged. SINGLE VIEW PELVIS AND 2 VIEWS OF THE LEFT FEMUR: COMPARISON: CT pelvis from September 15, 2017. 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 The femoral component displaced supe rior laterally with pseudoacetabulum formation along the iliac margin. T his is unchanged from previous CT scan from September 15, 2017. Pelvic ri ng appears intact on a single view. SI joints are preserved. Tri compartment joint space narrowing within the knee. Articular surfaces ar e well marginated. The lateral view is very limited due to technique and positioning. 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 No acute fracture or dislocation. 2 VIEWS OF THE RIGHT FEMUR: No acute fracture or dislocation. Marginal osteophytes from the greater trochanter. Tricompartment joint space narrowing within the knee . Osteopenia. No AVN of the femoral head. Soft tissues are normal. IMPRESSION PAGE 1 Signed Report (CONTINUED) FAX: MegEsau Faith VENEGAS [place]: B St: REG ---- Name: MOJGAN CUMMINGS [facility] : 1950 Age/S: 68/F [address] Unit #: [id number] Loc: [place] [address] Phys: Esau Weaver DO Acct: [id number] Dis Date: Status: REG ER PHONE # : [phone] Exam Date: 11/27/2018 1245 FAX #: [phone] Reason: THIGH PAIN EXAMS : CPT CODE: [id number] XR FEMU R MIN [address] [place] [address] <Continued> No acute fracture or dislocation of the right hip. DJD. at 1318 Reported and signed by: Clem Grissom M.D. CC: Esau Weaver DO Technologist: JERAMIE LOPEZ RT(R); Eric Chavez RT(R) [facility] Date/Time/By: 11/27/2018 (8524) : By: [email or web address] Orig Print D/T: S: 11/27/2018 (2741) PAGE 2 Signed Report - XR CHEST 1 [id number] 13:18:00 FAX: Esau Weaver DO [place]: B St: REG Name: Faith CHRISSYMOJGAN [facility] : [birth year] Age/S: 68/F [address] Unit #: [id number] Loc: [place] [address] Phys: Esau Weaver DO Acct: [id number] Dis Date: Status: REG ER PHONE #: [phone] Exam Date: 11/27/2018 1245 FAX #: [phone] Reason: CHEST PAIN EXAMS: CPT CODE: [id number] XR CHEST 1 V 28109 HISTORY: Pain after fall. COMPARISON: Chest x-ray from November 05, 2017. Tracheostomy tube is unchanged. No pneumothorax is noted. No acute infiltrates, effusion or congestion is noted. The cardiac and mediastinal adelia houette are within normal limits. IMPRESSION: No acute infiltrates, effusion or congestion. Tracheostomy tube is unc hanged. SINGLE VIEW PELVIS AND 2 VIEWS OF THE LEFT FEMUR: COMPARISON: CT pelvis from September 15, 2017. 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 The femoral component displaced supe rior laterally with pseudoacetabulum formation along the iliac margin. T his is unchanged from previous CT scan from September 15, 2017. Pelvic ri ng appears intact on a single view. SI joints are preserved. Tri compartment joint space narrowing within the knee. Articular surfaces ar e well marginated. The lateral view is very limited due to technique and positioning. 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 No acute fracture or dislocation. 2 VIEWS OF THE RIGHT FEMUR: No acute fracture or dislocation. Marginal osteophytes from the greater trochanter. Tricompartment joint space narrowing within the knee . Osteopenia. No AVN of the femoral head. Soft tissues are normal. IMPRESSION PAGE 1 Signed Report (CONTINUED) FAX: Esau Weaver DO [place]: B St: REG ---- Name: MOJGAN CUMMINGS [facility] : 1950 Age/S: 68/F [address] [facility] Unit #: [id number] Loc: [place] [address] Phys: Esau Weaver DO Acct: [id number] Dis Date: Status: REG ER PHONE # : [phone] Exam Date: 11/27/2018 1245 FAX #: Reason: CHEST PAIN EXAMS : CPT CODE: [id number] XR CHES T 1 V 77110 <Continued> No acute fracture or dislocation of the right hip. DJD. at 1318 Reported and signed by: Clem Grissom M.D. CC: Esau Weaver DO Technologist: Eric ALEXANDRA(R) Trnscrd Date/Time/By: 11/27/2018 (0531) : By: [email or web address] Orig Print D/T: S: 11/27/2018 (7331) PAGE 2 Signed Report - XR CHEST 1 [id number] 13:18:00 FAX: Esau Weaver DO [place]: B St: DEP Name: MOJGAN SAUCEDO [facility] : [birth year] Age/S: 68/F [address] [facility] Unit #: [id number] Loc: [place] [address] Phys: Esau Weaver DO Acct: [id number] Dis Date: Status: DEP ER PHONE #: [phone] Exam Date: 11/27/2018 1245 FAX #: [phone] Reason: CHEST PAIN EXAMS: CPT CODE: [id number] XR CHEST 1 V 86240 HISTORY: Pain after fall. COMPARISON: Chest x-ray from November 05, 2017. Tracheostomy tube is unchanged. No pneumothorax is noted. No acute infiltrates, effusion or congestion is noted. The cardiac and mediastinal adelia houette are within normal limits. IMPRESSION: No acute infiltrates, effusion or congestion. Tracheostomy tube is unc hanged. SINGLE VIEW PELVIS AND 2 VIEWS OF THE LEFT FEMUR: COMPARISON: CT pelvis from September 15, 2017. 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 The femoral component displaced supe rior laterally with pseudoacetabulum formation along the iliac margin. T his is unchanged from previous CT scan from September 15, 2017. Pelvic ri ng appears intact on a single view. SI joints are preserved. Tri compartment joint space narrowing within the knee. Articular surfaces ar e well marginated. The lateral view is very limited due to technique and positioning. 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 No acute fracture or dislocation. 2 VIEWS OF THE RIGHT FEMUR: No acute fracture or dislocation. Marginal osteophytes from the greater trochanter. Tricompartment joint space narrowing within the knee . Osteopenia. No AVN of the femoral head. Soft tissues are normal. IMPRESSION PAGE 1 Signed Report (CONTINUED) FAX: Esau Weaver DO [place]: St: [facility] ---- Name: MOJGAN CUMMINGS [facility] : 1950 Age/S: 68/F [address] [facility] Unit #: [id number] Loc: [place] [address] Phys: Esau Weaver DO Acct: [id number] Dis Date: Status: DEP ER PHONE # : [phone] Exam Date: 11/27/2018 1248 FAX #: Reason: CHEST PAIN EXAMS : CPT CODE: [id number] XR CHES T 1 V 34856 <Continued> No acute fracture or dislocation of the right hip. DJD. at 1318 Reported and signed by: Clem Grissom M.D. CC: Esau Weaver DO Technologist: Eric Chavez RT(R) Trnscrd Date/Time/By: 11/27/2018 (4898) : By: [email or web address] Orig Print D/T: S: 11/27/2018 (2820) PAGE 2 Signed Report - XR PELVIS 1/2 [id number] 13:18:00 FAX: Esau Weaver DO [place]: B St: DEP Name: MOJGAN SAUCEDO [facility] : [birth year] Age/S: 68/F [address] [facility] Unit #: [id number] Loc: [place] [address] Phys: Esau Weaver DO Acct: [id number] Dis Date: Status: DEP ER PHONE #: [phone] Exam Date: 11/27/2018 1245 FAX #: [phone] Reason: PELVIC PAIN EXAMS: CPT CODE: [id number] XR PELVIS 1/2 VIEWS 47636 HISTORY: Pain after fall. COMPARISON: Chest x-ray from November 05, 2017. Tracheostomy tube is unchanged. No pneumothorax is noted. No acute infiltrates, effusion or congestion is noted. The cardiac and mediastinal adelia houette are within normal limits. IMPRESSION: No acute infiltrates, effusion or congestion. Tracheostomy tube is unc hanged. SINGLE VIEW PELVIS AND 2 VIEWS OF THE LEFT FEMUR: COMPARISON: CT pelvis from September 15, 2017. 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 The femoral component displaced supe rior laterally with pseudoacetabulum formation along the iliac margin. T his is unchanged from previous CT scan from September 15, 2017. Pelvic ri ng appears intact on a single view. SI joints are preserved. Tri compartment joint space narrowing within the knee. Articular surfaces ar e well marginated. The lateral view is very limited due to technique and positioning. 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 No acute fracture or dislocation. 2 VIEWS OF THE RIGHT FEMUR: No acute fracture or dislocation. Marginal osteophytes from the greater trochanter. Tricompartment joint space narrowing within the knee . Osteopenia. No AVN of the femoral head. Soft tissues are normal. IMPRESSION PAGE 1 Signed Report (CONTINUED) FAX: Esau Weaver DO [place]: St: DEP ---- Name: MOJGAN CUMMINGS [facility] : 1950 Age/S: 68/F [address] [facility] Unit #: [id number] Loc: [place] [address] Phys: Esau Weaver DO Acct: [id number] Dis Date: Status: DEP ER PHONE # : [phone] Exam Date: 11/27/2018 1245 FAX #: Reason: PELVIC PAIN EXAMS : CPT CODE: [id number] XR PELV IS 1/2 VIEWS 10923 <Continued> No acute fracture or dislocation of the right hip. DJD. at 1318 Reported and signed by: Clem Grissom M.D. CC: Esau Weaver DO Technologist: Eric ALEXANDRA(R) Trnscrd Date/Time/By: 11/27/2018 (1318) : By: [email or web address] Orig Print D/T: S: 11/27/2018 (9887) PAGE 2 Signed Report - XR FEMUR MIN 2 VWS [id number] 13:18:00 FAX: Esau Weaver DO [place]: St: DEP Name: MOJGAN SAUCEDO [facility] : [birth year] Age/S: 68/F [address] [facility] Unit #: [id number] Loc: [place] [address] Phys: Esau Weaver DO Acct: [id number] Dis Date: Status: DEP ER PHONE #: [phone] Exam Date: 11/27/2018 1245 FAX #: [phone] Reason: THIGH PAIN EXAMS: CPT CODE: [id number] XR FEMUR MIN [address] [place] [address] HISTORY: Pain after fall. COMPARISON: Chest x-ray from November 05, 2017. Tracheostomy tube is unchanged. No pneumothorax is noted. No acute infiltrates, effusion or congestion is noted. The cardiac and mediastinal adelia houette are within normal limits. IMPRESSION: No acute infiltrates, effusion or congestion. Tracheostomy tube is unc hanged. SINGLE VIEW PELVIS AND 2 VIEWS OF THE LEFT FEMUR: COMPARISON: CT pelvis from September 15, 2017. 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 The femoral component displaced supe rior laterally with pseudoacetabulum formation along the iliac margin. T his is unchanged from previous CT scan from September 15, 2017. Pelvic ri ng appears intact on a single view. SI joints are preserved. Tri compartment joint space narrowing within the knee. Articular surfaces ar e well marginated. The lateral view is very limited due to technique and positioning. 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 No acute fracture or dislocation. 2 VIEWS OF THE RIGHT FEMUR: No acute fracture or dislocation. Marginal osteophytes from the greater trochanter. Tricompartment joint space narrowing within the knee . Osteopenia. No AVN of the femoral head. Soft tissues are normal. IMPRESSION PAGE 1 Signed Report (CONTINUED) FAX: Esau Weaver DO [place]: B St: DEP ---- Name: MOJGAN CUMMINGS [facility] : 1950 Age/S: 68/F [address] Unit #: [id number] Loc: [place] [address] Phys: Esau Weaver DO Acct: [id number] Dis Date: Status: DEP ER PHONE # : [phone] Exam Date: 11/27/2018 1245 FAX #: Reason: THIGH PAIN EXAMS : CPT CODE: [id number] XR FEMU R MIN [address] [place] [address] <Continued> No acute fracture or dislocation of the right hip. DJD. at 1318 Reported and signed by: Clem Grissom M.D. CC: Esau Weaver DO Technologist: JERAMIE LOPEZ RT(R); Eric Chavez RT(R) [facility] Date/Time/By: 11/27/2018 (1318) : By: [email or web address] Orig Print D/T: S: 11/27/2018 (6948) PAGE 2 Signed Report - XR FEMUR MIN 2 VWS [id number] 13:18:00 FAX: Esau Weaver DO [place]: B St: DEP Name: Faith LOWEMOJGAN MOLINA [facility] : [birth year] Age/S: 68/F [address] Unit #: [id number] Loc: [place] [address] Phys: Esau Weaver DO Acct: [id number] Dis Date: Status: DEP ER PHONE #: [phone] Exam Date: 11/27/2018 1245 FAX #: [phone] Reason: THIGH PAIN EXAMS: CPT CODE: [id number] XR FEMUR MIN [address] [place] [address] HISTORY: Pain after fall. COMPARISON: Chest x-ray from November 05, 2017. Tracheostomy tube is unchanged. No pneumothorax is noted. No acute infiltrates, effusion or congestion is noted. The cardiac and mediastinal adelia houette are within normal limits. IMPRESSION: No acute infiltrates, effusion or congestion. Tracheostomy tube is unc hanged. SINGLE VIEW PELVIS AND 2 VIEWS OF THE LEFT FEMUR: COMPARISON: CT pelvis from September 15, 2017. 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 The femoral component displaced supe rior laterally with pseudoacetabulum formation along the iliac margin. T his is unchanged from previous CT scan from September 15, 2017. Pelvic ri ng appears intact on a single view. SI joints are preserved. Tri compartment joint space narrowing within the knee. Articular surfaces ar e well marginated. The lateral view is very limited due to technique and positioning. 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 No acute fracture or dislocation. 2 VIEWS OF THE RIGHT FEMUR: No acute fracture or dislocation. Marginal osteophytes from the greater trochanter. Tricompartment joint space narrowing within the knee . Osteopenia. No AVN of the femoral head. Soft tissues are normal. IMPRESSION PAGE 1 Signed Report (CONTINUED) FAX: EdgarEsau canela DO [place]: B St: DEP ---- Name: MOJGAN CUMMINGS [facility] : 1950 Age/S: 68/F [address] [facility] Unit #: [id number] Loc: [place] [address] Phys: Esau Weaver DO Acct: [id number] Dis Date: Status: DEP ER PHONE # : [phone] Exam Date: 11/27/2018 1245 FAX #: [phone] Reason: THIGH PAIN EXAMS : CPT CODE: [id number] XR FEMU R MIN 2 [place] [address] <Continued> No acute fracture or dislocation of the right hip. DJD. at 1318 Reported and signed by: Clem Grissom M.D. CC: Esau Weaver DO Technologist: JERAMIE LOPEZ RT(R); Eric Chavez RT(R) Trnscrd Date/Time/By: 11/27/2018 (7179) : By: [email or web address] Orig Print D/T: S: 11/27/2018 (3907) PAGE 2 Signed Report BASIC METABOLIC [id number] 12:55:00* Test Item Value Reference Range Interpretation Comments SODIUM (test code = NA) 142 mmol/L 136-145 N POTASSIUM (test code = K) 4.8 mmol/L 3.5-5.1 N CHLORIDE (test code = CL) 113.0 mmol/L 98-107 H CARBON DIOXIDE (test code = CO2) 18.0 mmol/L 21-32 L ANION GAP (test code = GAP) 15.8 10-20 N GLUCOSE (test code = GLU) 77 mg/dL 74-106 N BLOOD UREA NITROGEN (test code = BUN) 36 mg/dL 7-18 H GLOMERULAR FILTRATION RATE (test code = GFR) > 60 mL/min >=60 Estimated GFR by using Modified MDRD formula.Chronic kidney disease is defined as either kidney damageor GFR <60 mL/min/1.73 m2 for >3 months. CREATININE (test code = CREAT) 0.80 mg/dL 0.55-1.02 N Note change in reference range due to change in reagent. BUN/CREATININE RATIO (test code = BUN/CREA) 45.0 10-20 H CALCIUM (test code = CA) 8.5 mg/dL 8.5-10.1 N HEPATIC FUNCTION [id number] 12:55:00* Test Item Value Reference Range Interpretation Comments TOTAL PROTEIN (test code = PROT) 6.3 gram/dL 6.4-8.2 L ALBUMIN (test code = ALB) 2.3 g/dL 3.4-5.0 L GLOBULIN (test code = GLOB) 4.0 gram/dL 2.7-4.2 N ALBUMIN/GLOBULIN RATIO (test code = A/G) 0.6 0.75-1.50 L BILIRUBIN TOTAL (test code = BILT) 0.30 mg/dL 0.0-1.0 N BILIRUBIN DIRECT (test code = BILD) 0.15 mg/dL 0.0-0.20 N SGOT/AST (test code = AST) 11 IUnit/L 15-37 L SGPT/ALT (test code = ALT) 12 IUnit/L 12-78 N ALKALINE PHOSPHATASE TOTAL (test code = ALKP) 144 IUnit/L 45-117 H Note change in reference range due to change in reagent. [id number] 12:55:00* Test Item Value Reference Range Interpretation Comments TROPONIN-I (test code = TROPI) <0.015 ng/mL 0-0.045 N - CT C-SPINE W/O [id number] 12:49:00 Name: MOJGAN CUMMINGS [facility] : 1950 Age/S: 68 / F [address] [facility] Unit #: [id number] Loc: [place] [address] Phys: Esau Weaver DO Acct: [id number] Dis Date: Status: [facility] ER PHONE #: [phone] Exam Date: 11/27/2018 1236 FAX #: [phone] Reason: Neck Pain EXAMS: CPT CODE: [id number] CT C-SPINE W/O CONTRAST 97470 HISTORY: Neck pain. COMPARISON: CT neck from November 07, 2017. CT cervical spine without contrast: Automated exposure control. No acute fracture of the cervical spine. Multilevel facet hypertrophy resulting in foraminal stenosis. Tracheostomy tube noted. No prevertebral soft tissue swelling. Multilevel moderate to severe foraminal stenosis from facet hypertrophy. Scattered marginal osteophytes without significant canal stenosis. Thyroid glands are unremarkable. Tracheostomy tube is above the marlyn. Superior mediastinum is unremarkable. Lung apices are clear. Anatomic alignment. Vertebral body heights are maintained. Disc spaces are prese rved. Uncovertebral joints are preserved. IMPRESSION: No acute fracture. DJD with anatomic alignment. Electronical ly Signed by Crispin Grissom on 11/27/2018 at 1249 Rep orted and signed by: Clem Grissom M.D. CC: Esau Weaver DO Technologist:Dmitri Cortes RT(R),(MR),(CT); CTDI: DLP: Trnscb Date/Time: 11/27/2018 (7441) [email or web address] Orig Print D/T: S: 11/27/2018 (0536) PAGE 1 Signed Report - CT C-SPINE W/O CONTRAST 2018-11-27 12:49:00 Name: ZOILAMOJGAN MOLINA [facility] : 1950 Age/S: 68 / F [address] [facility] Unit #: [id number] [place] [address] Phys: Esau Weaver DO Acct: [id number] Dis Date: Status: REG ER PHONE #: [phone] Exam Date: 11/27/2018 1236 FAX #: [phone] Reason: Neck Pain EXAMS: CPT CODE: [id number] CT C-SPINE W/O CONTRAST 56218 HISTORY: Neck pain. COMPARISON: CT neck from November 07, 2017. CT cervical spine without contrast: Automated exposure control. No acute fracture of the cervical spine. Multilevel facet hypertrophy resulting in foraminal stenosis. Tracheostomy tube noted. No prevertebral soft tissue swelling. Multilevel moderate to severe foraminal stenosis from facet hypertrophy. Scattered marginal osteophytes without significant canal stenosis. Thyroid glands are unremarkable. Tracheostomy tube is above the marlyn. Superior mediastinum is unremarkable. Lung apices are clear. Anatomic alignment. Vertebral body heights are maintained. Disc spaces are preserved. Uncovertebral joints are preserved. IMPRESSION: No acute fracture. DJD with anatomic alignment. at 1249 Reported and signed by: Clem Grissom M.D. CC: Esau Weaver DO Technologist:Dmitri Cortes RT(R),(MR),(CT); CTDI: DLP: Trnscb Date/Time: 11/27/2018 (1249) [email or web address] Orig Print D/T: S: 11/27/2018 (1252) CTDI: DLP: PAGE 1 Signed Report - CT C-SPINE W/O [id number] 12:49:00 Name: MOJGAN CUMMINGS [facility] : 1950 Age/S: 68 / F [address] [facility] Unit #: [id number] Loc: [place] [address] Phys: Esau Weaver DO Acct: [id number] Dis Date: Status: [facility] ER PHONE #: [phone] Exam Date: 11/27/2018 1236 FAX #: [phone] Reason: Neck Pain EXAMS: CPT CODE: [id number] CT C-SPINE W/O CONTRAST 97091 HISTORY: Neck pain. COMPARISON: CT neck from November 07, 2017. CT cervical spine without contrast: Automated exposure control. No acute fracture of the cervical spine. Multilevel facet hypertrophy resulting in foraminal stenosis. Tracheostomy tube noted. No prevertebral soft tissue swelling. Multilevel moderate to severe foraminal stenosis from facet hypertrophy. Scattered marginal osteophytes without significant canal stenosis. Thyroid glands are unremarkable. Tracheostomy tube is above the marlyn. Superior mediastinum is unremarkable. Lung apices are clear. Anatomic alignment. Vertebral body heights are maintained. Disc spaces are preserved. Uncovertebral joints are preserved. IMPRESSION: No acute fracture. DJD with anatomic alignment. at 1249 Reported and signed by: Clme Grissom M.D. CC: Esau Weaver DO Technologist:Dmitri Cortes RT(R),(MR),(CT); CTDI: DLP: Trnscb Date/Time: 11/27/2018 (1249) [email or web address] Orig Print D/T: S: 11/27/2018 (1252) PAGE 1 Signed Report - CT HEAD/BRAIN W/O [id number] 12:40:00 Name: MOJGAN CUMMINGS [facility] : 1950 Age/S: 68 / F [address] Unit #: [id number] Loc: [place] [address] Phys: Esau Weaver DO Acct: [id number] Dis Date: Status: DEP ER PHONE #: [phone] Exam Date: 11/27/2018 1236 FAX #: [phone] Reason: HEADACHE EXAMS: CPT CODE: [id number] CT HEAD/BRAIN W/O CONT 96092 HISTORY: Headaches. COMPARISON: November 03, 2017. CT brain without contrast: Automated exposure control. No acute intracranial bleeds or extra- axial collections are noted. No acute territorial vascular infarction is noted. The sulci, gyri, ventricles and subarachnoid spaces and the basilar cisterns are normal for patient's age. No herniation or hydroceph alus or midline shift is noted. Mild periventricular ischemi c gliosis is noted. Age-appropriate atrophy is noted as well. Portions of the visualized paranasal sinuses are normal. Mild right mast oiditis No obvious bony calvarial defect is noted. IMPRESSION: No acute intracranial bleeds or extra-axial colle ctions. No acute territorial vascular infarction. No herniation or hydrocephalus or midline shift. Chronic white matter ischemic disease and atrophy . El ectronically Signed by Crispin Grissmo on 11/27/2018 at 1240 Reported and signed by: Clem Grissom M.D. CC: Esau Weaver DO Technologist:Dmitri Cortes RT(R),(MR),(CT); CTDI: DLP: Trnscb Date/Time: 11/27/2018 (1240) [email or web address] Orig Print D/T: S: 11/27/2018 (2010) PAGE 1 Signed Report - CT HEAD/BRAIN W/O CONT 2018-11-27 12:40:00 Name: MOJGAN CUMMINGS [facility] : 1950 Age/S: 68 / F [address] Unit #: [id number] Loc: [place] [address] Phys: Esau Weaver Acct: [id number] Dis Date: Status: REG ER PHONE #: [phone] Exam Date: 11/27/2018 1236 FAX #: [phone] Reason: HEADACHE EXAMS: CPT CODE: [id number] CT HEAD/BRAIN W/O CONT 21102 HISTORY: Headaches. COMPARISON: November 03, 2017. CT brain without contrast: Automated exposure control. No acute intracranial bleeds or extra-axial collections are noted. No acute territorial vascular infarction is noted. The sulci, gyri, ventricles and subarachnoid spaces and the basilar cisterns are normal for patient's age. No herniation or hydrocephalus or midline shift is noted. Mild periventricular ischemic gliosis is noted. Age-appropriate atrophy is noted as well. Portions of the visualized paranasal sinuses are normal. Mild right mastoiditis No obvious bony calvarial defect is noted. IMPRESSION: No acute intracranial bleeds or extra-axial collections. No acute territorial vascular infarction. No herniation or hydrocephalus or midline shift. Chronic white matter ischemic disease and atrophy . at 1240 Reported and signed by: Clem Grissom M.D. CC: Esau Weaver DO Technologist:Dmitri Cortes RT(R),(MR),(CT); CTDI: DLP: Trnscb Date/Time: 11/27/2018 (1240) [email or web address] Orig Print D/T: S: 11/27/2018 (7044) CTDI: DLP: PAGE 1 Signed Report - CT HEAD/BRAIN W/O [id number] 12:40:00 Name: MOJGAN CUMMINGS [facility] : 1950 Age/S: 68 / F [address] Unit #: [id number] Loc: [place] [address] Phys: Esau Weaver DO Acct: [id number] Dis Date: Status: DEP ER PHONE #: [phone] Exam Date: 11/27/2018 1236 FAX #: [phone] Reason: HEADACHE EXAMS: CPT CODE: [id number] CT HEAD/BRAIN W/O CONT 91712 HISTORY: Headaches. COMPARISON: November 03, 2017. CT brain without contrast: Automated exposure control. No acute intracranial bleeds or extra-axial collections are noted. No acute territorial vascular infarction is noted. The sulci, gyri, ventricles and subarachnoid spaces and the basilar cisterns are normal for patient's age. No herniation or hydrocephalus or midline shift is noted. Mild periventricular ischemic gliosis is noted. Age-appropriate atrophy is noted as well. Portions of the visualized paranasal sinuses are normal. Mild right mastoiditis No obvious bony calvarial defect is noted. IMPRESSION: No acute intracranial bleeds or extra-axial collections. No acute territorial vascular infarction. No herniation or hydrocephalus or midline shift. Chronic white matter ischemic disease and atrophy . at 1240 Reported and signed by: Clem Grissom M.D. CC: Esau Weaver DO Technologist:Dmitri Cortes RT(R),(MR),(CT); CTDI: DLP: Trnscb Date/Time: 11/27/2018 (1240) t.SDR.TH4 Orig Print D/T: S: 11/27/2018 (1624) PAGE 1 Signed Report CBC W/O [id number] 12:38:00* Test Item Value Reference Range Interpretation Comments WHITE BLOOD CELL (test code = WBC) 11.9 K/mm3 4.5-12.5 N RED BLOOD CELL (test code = RBC) 4.46 mill/mm3 3.7-5.2 N HEMOGLOBIN (test code = HGB) 12.7 gram/dL 11.5-15.5 N HEMATOCRIT (test code = HCT) 39.9 % 36.0-46.0 N MEAN CELL VOLUME (test code = MCV) 89.5 fL 80-98 N MEAN CELL HGB (test code = MCH) 28.5 picogram 27.0-33.0 N MEAN CELL HGB CONCETRATION (test code = MCHC) 31.8 gram/dL 33.0-36. 0 L RED CELL DISTRIBUTION WIDTH (test code = RDW) 16.1 % 11.6-16. 2 N PLATELET COUNT (test code = PLT) 108 K/mm3 150-450 L CHEST SINGLE (PORTABLE)2018-11-16 14:29:00 [place] [address] Patient Name: MOJGAN CUMMINGS MR #: [id number] : 1950 Age/Sex: 68/F Req #: [id number] Adm Physician: Ordered by: WILIAM MARTINEZ MD Report #: [id number] Location: ER Room/Bed: Procedure: [id number] DX /CHEST SINGLE (PORTABLE) Exam Date: 11/16/18 Exam Ti me: 1350 REPORT STATUS: Signed E XAMINATION: CHEST SINGLE (PORTABLE) INDICATION: Cough. COMPARISO N: Chest radiograph 08/12/2018. FINDINGS: TUBES and LINES: Stab le tracheostomy tube. LUNGS: Lungs are well inflated. There is no evidenc e of pneumonia or pulmonary edema. PLEURA: No pleural effusion or pneumo thorax. HEART AND MEDIASTINUM: The cardiomediastinal silhouette is unremar kable. BONES AND SOFT TISSUES: No acute osseous lesion. Extensive fritz ohumeral degenerative changes. UPPER ABDOMEN: No free air under the diaph ragm. IMPRESSION: No acute radiographic abnormality. Signed by: Dr. Radha Rocha MD on 11/16/2018 2:35 PM Dictated By: RADHA ROCHA MD Elec tronically Signed By: RADHA ROCHA MD on 11/16/18 1435 Transcribed By: BAMBI on 11/16/18 1435 COPY TO: WILIAM MARTINEZ MD [id number] 18:44:[address] [place], [place] [address]GwexpkBFMKMBJAGSQA7784-27-14 18:44:0018[facility]OqadwmXAROVIDFOUSE8984-81-39 18:44:009.9[facility] MQVBQSFTVNIV9867-14-61 18:44:004.9[facility] HospitalWjlgplJEKTQPOZTXBS9131-73-48 18:44:07873HOMethod[facility] HospitalBofygbFVDVJRZYGVJF2278-13-89 18:44:000.80[facility] HospitalHajvloTMJLASPFGLXB3536-42-52 18:44:59203CS[facility] SKADBPBGSCUI5133-15-90 18:44:0094[facility] HospitalXchzilDZVHYAQIZUMH1051-75-53 18:44:0036[facility] HospitalHxthsrMEUYJXDAZURQ4242-61-35 18:44:0075[facility] HospitalUS ABDOMEN UWDWPMYD7749-56-29 12:16:00 [place] [address] Patient Name: MOJGAN CUMMINGS MR #: [id number] : 1950 Age/Sex: 68/F Req #: [id number] Adm Physician: ILAN STEIN MD Ordered by: RUSSELL BARRON MD Report #: [id number] Location: MED/SURG3 Room/Bed: [facility] Procedure: [id number] US/US ABDOMEN COMPLETE Exam Date: Exam Time: REPORT STATUS: Signed EXAM: Complete Abdom inal Ultrasound INDICATION: evaluate liver and spleen COMPARISON: CT abdomen and pelvis 06/21/2018 TECHNIQUE: Transverse and longitudinal images of the upper abdomen were obtained. FINDINGS: Liver: Size: 18.7 cm in the right midclavicular line, enlarged Appearance: Increased echogeni city, smooth contour Mass: No focal masses Spleen: Size: 11.1 cm in le ngth, normal Echogenicity: Normal Mass: No focal masses Gallbladder: Stones/Sludge: Mobile, echogenic stones are noted in the gallbladder lumen. Wall: 0.3 cm Appearance: No wall thickening, pericholecystic fluid or hydrops. Sonographic Rodriguez's Sign: Negative Bile Ducts: Intrahepatic Ducts: No dilatation Extrahepatic Ducts: Common bile duct measures 0.7 cm, upper limi t of normal to minimally dilated Pancreas: Visualized portions of the n nelsy and proximal body are unremarkable. Kidneys: Length: Right 10.8 cm Left 10.3 cm Echogenicity: Normal Collecting System: No hydronephrosis Stone: None Cyst/Mass: None Vessels: Aorta: Obscured by overlying bowel gas. Inferior Vena Cava: Obscured by overlying bowel gas. Main Portal Vein: 0.8 cm, normal size with hepatopetal flow. Free Fluid: No ascites or pleural effusion IMPRESSION: 1. Hepatomegaly with diffu se fatty infiltration. No focal lesions. 2. Unremarkable spleen. 3. Ch olelithiasis, without sonographic evidence of cholecystitis. Signed by: Dr. Og Turner M.D. on 08/13/2018 12:19 PM Dictated By: OG ECHOLS MD 121 Transcribed By: BAMBI on 08/13/18 1219 COPY TO: RUSSELL BARRON MD CHEST SINGLE (PORTABLE)2018-08-12 05:55:00 [place] [address] Patient Name: MOJGAN CUMMINGS MR #: [id number] : 1950 Age/Sex: 68/F Req #: [id number] Adm Physician: Ordered by: ALFONSO ROBB MD Report #: [id number] Location: ER Room/Bed: Procedure: [id number] DX/CHEST SINGLE (PORTABLE) Exam Date: 08/12/18 Exam Time: 0520 REPORT STATUS: Signed EXAMINATION: CHEST SINGLE (PORTABLE) INDICATION: Shortness of breath. SOB COMPARISON: 07/30/2018 FINDINGS: AP view TUBES and LINES: Stable tracheostomy tube. LUNGS: Lungs are well inflated. S table chronic appearing changes. There is no evidence of pneumonia or pulmon silverio edema. PLEURA: No pleural effusion or pneumothorax. HEART AND MED IASTINUM: The cardiomediastinal silhouette is unremarkable. BONES AND SOFT TISSUES: No acute osseous lesion. Glenohumeral degenerative changes. Sof t tissues are unremarkable. UPPER ABDOMEN: No free air under the diaphragm. IMPRESSION: No acute thoracic abnormality. Signed by: DR. Magui Hernández MD on 08/12/2018 6:03 AM Dictated By: LOKI HERNÁNDEZ MD Gem ctronically Signed By: LOKI HERNÁNDEZ MD on 08/12/18602 Transcribed By: ANA Aburto on 08/12/18602 COPY TO: ALFONSO ROBB MD SPECIAL PROCEDURE IN CATH [id number] 11:04:00 [place] [address] Patient Name: MOJGAN CUMMINGS MR #: [id number] : 1950 Age/Sex: 68/F Req #: [id number] Adm Physician: ILAN STEIN MD Ordered by: PHOENIX CIFUENTES MD Report #: [id number] Location: MED/SURG2 Room/Bed: Replaced by [facility] Procedure: 1113-0 004 IR/SPECIAL PROCEDURE IN [facility] Exam Date: Time: REPORT STATUS: Signed P rocedure: G-tube catheter replacement Medications: Fentanyl 50 mcg intraven ous. The patient's vital signs, including pulse oximetry, were continuously m onitored by the interventional radiology nurse. Fluoroscopy time: 2.6 min utes. Dose area product: 1602.1 cGycm2 Contrast used: None Estimated bl ood loss: Minimal. Complications: No immediate. Procedure in detail: Informed consent for the procedure was obtained from the patient. A 5 English dilator was placed into the tract. Contrast was injected. This does not opacify a patent tract into the stomach. Probing with a 0.035 " Glidewire was then a ccomplished which was then successful in placing the wire and dilator into the gastric fundus. Local anesthesia and the tract was obtained with 1% Xyloca ine. A 0.035 " Amplatz superstiff wire was then placed into the stomach. An 18 English [employer] balloon retention G-tube was then placed over the wi re. The balloon was inflated with 6 cc of saline. Contrast was injected confir vernon appropriate location. A sterile dressing was applied. The patient tolerated the procedure well without immediate complication. Impression: Replacement of a G-tube utilizing fluoroscopic and guidewire technique to recannulize the tract and then placement of a new G-tube over a wire. Sign ed by: Dr. Danae Oneil DO on 08/01/2018 11:20 AM Dictated By: DANAE JENKINS DO 1036 Transcrib ed By: BAMBI on 08/03/18 1036 COPY TO: PHOENIX CIFUENTES MD IR [id number] 11:04:00 [place] [address] Patient Name: MOJGAN CUMMINGS MR #: [id number] : 1950 Age/Sex: 68/F Req #: [id number] Adm Physician: ILAN STEIN MD Ordered by: PHOENIX CIFUENTES MD Report #: [id number] Location: MED/SURG2 Room/Bed: Replaced by [facility] Procedure: 1113-0 003 DX/IR CONSULT Exam Date: Exam Time: REPORT STATUS: Signed Procedure: G-tube ca theter replacement Medications: Fentanyl 50 mcg intravenous. The patient's vital signs, including pulse oximetry, were [facility]. Fluoroscopy time: 2.6 minutes. Dose area p roduct: 1602.1 cGycm2 Contrast used: None Estimated blood loss: Minimal. Complications: No immediate. Procedure in detail: Informed consent f or the procedure was obtained from the patient. A 5 English dilator was placed into the tract. Contrast was injected. This does not opacify a patent tract in to the stomach. Probing with a 0.035 " Glidewire was then accomplished which w as then successful in placing the wire and dilator into the gastric fundus. Local anesthesia and the tract was obtained with 1% Xylocaine. A 0.035 " Am tho superstiff wire was then placed into the stomach. An 18 English [employer] balloon retention G-tube was then placed over the wire. The balloon w as inflated with 6 cc of saline. Contrast was injected confirming appropriate location. A sterile dressing was applied. The patient tolerated the proce dure well without immediate complication. Impression: Replacement of a G-tube utilizing fluoroscopic and guidewire technique to recannulize the tr act and then placement of a new G-tube over a wire. Signed by: Dr. Danae jenkins DO on 08/01/2018 11:20 AM Dictated By: DANAE Flores Signed By: DANAE ONEIL DO on 08/03/18 1036 Transcribed By: BAMBI on 10/03/17 1036 COPY TO: PHOENIX CIFUENTES MD CHEST SINGLE (PORTABLE)2018-07-30 20:24:00 [place] [address] Patient Name: MOJGAN CUMMINGS MR #: [id number] : 1950 Age/Sex: 68/F Req #: [id number] Adm Physician: Ordered by: PHOENIX CIFUENTES MD Report #: [id number] Location: ER Room/Bed: Procedure: 29 DX/CHEST SINGLE (PORTABLE) Exam Date: 07/30/18 Ex am Time: 1939 REPORT STATUS: Signed EXAMINATION: CHEST SINGLE (PORTABLE) INDICATION: Fever C OMPARISON: 06/27/2018 and 06/05/2018 FINDINGS: AP view TUBES a nd LINES: Tracheostomy tube unchanged. LUNGS: Lungs are well inflated. S table chronic appearing lung changes. There is no evidence of pneumonia or p ulmonary edema. PLEURA: No pleural effusion or pneumothorax. HEART AN D MEDIASTINUM: The cardiomediastinal silhouette is unremarkable. BONES AND SOFT TISSUES: No acute osseous lesion. Glenohumeral degenerative changes. Soft tissues are unremarkable. UPPER ABDOMEN: No free air under the diaph ragm. IMPRESSION: No acute thoracic abnormality. Signed by: DR. Loki Hernández MD on 07/30/2018 8:29 PM Dictated By: LOKI HERNÁNDEZ MD 28 Transcribed By: Damian MYLES on 07/30/182028 COPY TO: PHOENIX CIFUENTES MD CHEST SINGLE (PORTABLE)2018-06-27 14:00:00 [place] [address] Patient Name: MOJGAN CUMMINGS MR #: [id number] : 1950 Age/Sex: 68/F Req #: [id number] Adm Physician: ILAN STEIN MD Ordered by: MARK ANTHONY KERNS MD Report #: [id number] Location: MED/SURG3 Room/Bed: 289-1 Procedure: [id number] DX/CH EST SINGLE (PORTABLE) Exam Date: 06/27/18 Exam Time: 1340 REPORT STATUS: Signed EXAMINATION: CHEST SINGLE (PORTABLE) INDICATION: Fever COMPARISON: Chest radiograph 06/05/18. FIND INGS: TUBES and LINES: Tracheostomy is present. LUNGS: Moderate lung v olumes. There is no evidence of pneumonia or pulmonary edema. Opacity overlyin g the bilateral upper lungs is likely overlying the patient. PLEURA: No pleural effusion or pneumothorax. HEART AND MEDIASTINUM: The cardiomedias tinal silhouette is unremarkable. BONES AND SOFT TISSUES: No acute oss eous lesion. Soft tissues are unremarkable. UPPER ABDOMEN: No free air u nder the diaphragm. IMPRESSION: No acute radiographic abnormality. N o evidence of pneumonia. . Signed by: Dr. Radha Rocha MD on 06/27/2018 2:04 PM Dictated By: RADHA ROCHA MD 03 Transcribed By: BAMBI on 06/27/181403 COPY TO: MARK ANTHONY KERNS MD CT ABDOMEN/PELVIS [id number] 16:47:00 [place] [address] Patient Name: MOJGAN CUMMINGS MR #: [id number] : 1950 Age/Sex: 68/F Req #: [id number] Adm Physician: ILAN STEIN MD Ordered by: SHABBIR MÉNDEZ MD Report #: [id number] Location: [facility] Room/Bed: [place] [address] Procedure: [id number] C T/CT ABDOMEN/PELVIS W Exam Date: Exam Time: REPORT STATUS: Signed EXAMINATION: CT of the abdomen and pelvis with contrast . TECHNIQUE: Helical CT images of the abdomen and pelvis were performed from the lung bases to the lesser trochanters after the intravenous administra tion of 150 cc of Isovue 300 and the oral administration of none. Coronal and sagittal reformatted images were obtained.Dose modulation, iterative reconstr uction, and/or weight based adjustment of the mA/kV was utilized to reduce the radiation dose to as low as reasonably achievable. COMPARISON: None. CLINICAL HISTORY:Abdominal pain and diarrhea DISCUSSION: ABDO MEN/PELVIS: LOWER THORAX:Unremarkable. HEPATOBILIARY: No focal hepatic lesions. No intra-or extrahepatic biliary ductal dilation. Gallstones versus layering sludge. SPLEEN: No splenomegaly. PANCREAS: No focal masses or ductal dilatation. ADRENALS: No adrenal nodules. KIDNEYS/URETERS: No hydronephrosis, stones, or solid mass lesions. PELVIC ORGANS/BLADDER: The bladder is normal. PERITONEUM/RETROPERITONEUM: No free air or fluid. LYMPH NODES: No intra-abdominal, retroperitoneal, pelvic or inguinal lymphad enopathy. VESSELS: The celiac trunk,superior and inferior mesenteric and bi lateral renal arteries are patent The portal, superior mesenteric and spleni c veins are patent. GI TRACT: No distention or wall thickening. Gastrosto my tube. Extensive colonic diverticulosis predominantly involving the sigmoid colon. No inflammation. 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 Multilevel thoracolumbar spondylosis. Small fat-containing anterolateral abdominal wall hernia. IMPRESSION: No acute CT findin g. Extensive colonic diverticulosis without inflammatory change. Sandy lithiasis versus bladder sludge. Signed by: Dr. Shantelle Jha M.D. on 06/21/2018 4:54 PM Dictated By: SHANTELLE JHA MD 9587 Transcribed By: BAMBI on 06/21/18 165 COPY TO: SHABBIR MÉNDEZ MD MODIFIED BA. [id number] 08:25:00 [place] [address] Patient Name: MOJGAN CUMMINGS MR #: [id number] : 1950 Age/Sex: 68/F Req #: [id number] Adm Physician: ILAN STEIN MD Ordered by: Pilar Simeon PRODUCTION CLERK Report #: [id number] Location: MED/SURG2 Room/Bed: [facility] Procedure: [id number] DX /MODIFIED BA. SWALLOW Exam Date: 06/06/18 Exam Time: 1030 REPORT STATUS: Signed PROCEDURE: X-RAY MODIFIED BARIUM SWALLOW COMPARISON: None. INDICATIONS: Not provided. DISCUSSION: Fluoroscopic examination was performed in conjunction with speech pathology, during swallowing of a variety of thin and thick liquid consistencies. CONCLUSION: Laryngeal penetration and juan aspiration were noted with thin and nectar thick liquids. Please see the report from speech pathology for complete details. Dictated by: Balbir Williamson M.D. on 06/07/2018 at 8:25 Electronically approved by: Balbir Williamson M.D. on 06/07/2018 at 8:25 Dictated By: BALBIR WILLIAMSON MD 4 Transcribed By: DEN on 06/07/18824 COPY TO: PILAR SIMEON NP WRIST RIGHT 2 [id number] 15:07:00 [place] [address] Patient Name: MOJGAN CUMMINGS MR #: [id number] : 1950 Age/Sex: 68/F Req #: [id number] Adm Physician: ILAN STEIN MD Ordered by: Pilar Simeon PRODUCTION CLERK Report #: [id number] Locati on: MED/SURG2 Room/Bed: 213 Procedure: [id number] DX /WRIST RIGHT 2 VIEWS Exam Date: 06/05/18 Exam Time: 1450 REPORT STATUS: Signed Exam: Right and left wrist 2 views each History: Pain, fall Comparison: None. Findings: No acute fractur e. Left wrist mild scapholunate widening and arthrosis involving the first CMC joint and radiocarpal joint. Right wrist ligamentous anchor to the scaphoid w ith diffuse carpal crowding and arthrosis involving the radiocarpal joint and first CMC joint. Impression: No acute osseous abnormality Sign ed by: Dr. Shantelle Jha M.D. on 06/05/2018 3:09 PM Dictated By: SHANTELLE JHA MD 1509 Tr anscribed By: BAMBI on 06/05/18 1509 COPY TO: PILAR SIMEON PRODUCTION CLERK WRIST LEFT 2 [id number] 15:07:00 [place] [address] Patient Name: MOJGAN CUMMINGS MR #: [id number] : 1950 Age/Sex: 68/F Req #: [id number] Adm Physician: ILAN STEIN MD Ordered by: Pilar Simeon PRODUCTION CLERK Report #: [id number] Location: MED/SURG2 Room/Bed: 213-1 Procedure: [id number] DX /WRIST LEFT 2 VIEWS Exam Date: 06/05/18 Exam Time: 1 450 REPORT STATUS: Signed Exam: Right and left wrist 2 views each History: Pain, fall Comparison: None. Findings: No acute fracture. Left wrist mild scapholunate widening and arthrosis involving the first CMC joint and radiocarpal joint. Right wrist ligamentous anchor to the scaphoid wi th diffuse carpal crowding and arthrosis involving the radiocarpal joint and f irst CMC joint. Impression: No acute osseous abnormality Lizzy d by: Dr. Shantelle Jha M.D. on 06/05/2018 3:09 PM Dictated By: SHANTELLE JHA MD 1509 Tra nscribed By: BAMIB on 06/05/18 1509 COPY TO: PILAR SIMEON NP SHOULDER LEFT [id number] 15:06:00 [place] [address] Patient Name: MOJGAN CUMMINGS MR #: [id number] : 1950 Age/Sex: 68/F Req #: [id number] Adm Physician: ILAN STEIN MD Ordered by: Pilar Simeon NP Report #: [id number] Location: MED/SURG2 Room/Bed: [facility] Procedure: DX /SHOULDER LEFT COMPLETE Exam Date: 06/05/18 Exam Alcon e: 1450 REPORT STATUS: Signed Exam: Left shoulder 2 views Hist ory: Pain Comparison: None. Findings: No fracture or malalignment. Ad vanced glenohumeral degenerative arthrosis with narrowing and osteophytosis. C alcified bodies in the axillary recess. Impression: No acute osseous abnormality Advanced glenohumeral degenerative arthrosis. Signed by: Dr. Shantelle Jha M.D. on 06/05/2018 3:07 PM Dictated By: SHANTELLE WATSON CH, MD 1384 Transcrib ed By: BAMBI on 06/05/18 8604 COPY TO: PILAR SIMEON PRODUCTION CLERK CHEST SINGLE (PORTABLE)2018-06-05 06:54:00 [place] [address] Patient Name: MOJGAN CUMMINGS MR #: [id number] : 1950 Age/Sex: 68/F Req #: [id number] Adm Physician: ILAN STEIN MD Ordered by: BALBIR BARDALES MD Report #: [id number] Location: MED/SURG Room/Bed: [facility] Procedure: [id number] DX/ EST SINGLE (PORTABLE) Exam Date: 06/05/18 Exam Time: 0555 REPORT STATUS: Signed EXAMINATION: CHEST SINGLE (PORTABLE) INDICATION: Pneumonia. COMPARISON: 06/01/2018 FIND INGS: TUBES and LINES: Tracheostomy tube is stable in good position. NELL GS: Lungs are not well inflated. There are bibasilar atelectasis. Confluen t airspace opacity in the left perihilar region and left lower lobe is suspici ous for early pneumonia PLEURA: No pleural effusion or pneumothorax. HEART AND MEDIASTINUM: Cardiac size is mildly enlarged. There are atheroscler otic calcifications within the aorta. BONES AND SOFT TISSUES: No acute oss eous lesion. Soft tissues are unremarkable. UPPER ABDOMEN: No free air u nder the diaphragm. IMPRESSION: Findings in the left perihilar regio n are suspicious for developing pneumonia Signed by: Lety Almendarez on 06/05/2018 6:55 AM Dictated By: SHANA TIAN MD Electronica lly Signed By: SHANA TIAN MD on 06/05/18654 Transcribed By: BAMBI on 06/05/18654 COPY TO: BALBIR BARDALES MD PELVIS AP 1-2 VIEWS 2018-06-03 07:07:00 [place] [address] Patient Name: MOJGAN CUMMINGS MR #: [id number] : 1950 Age/Sex: 68/F Req #: [id number] Adm Physician: ILAN STEIN MD Ordered by: ILAN STEIN MD Report #: [id number] Location: MED/SURG2 Room/Bed: [facility] Procedure: [id number] DX/ PELVIS AP 1-2 VIEWS Exam Date: 06/03/18 Exam Time: 0 532 REPORT STATUS: Signed PELVIS AP 1-2 VIEWS HISTORY: Status pos t fall COMPARISON: None FINDINGS: Bones: No acute displaced f racture. Joints: Complete chronic dislocation of left hip joint with po sttraumatic changes Soft tissues: The soft tissues appear unremarkable. IMPRESSION: No acute osseous abnormality. Chronic fracture dislocati on of the left hip Signed by: Dr. Shana Echeverria M.D. on 06/03/2018 7:08 AM Dictated By: SHANA TIAN MD 7 Transcribed By: BAMBI on 06/03/18707 CO PY TO: ILAN STEIN MD FEMUR TWO VIEW MINIMUM [id number] 07:06:00 [place] [address] Patient Name: MOJGAN CUMMINGS MR #: [id number] : 0 1950 Age/Sex: 68/F Req #: [id number] Adm Physician: ILAN STEIN MD Ordered by: ILAN STEIN MD Report #: [id number] Locatio n: MED/SURG2 Room/Bed: [facility] Procedure: [id number] DX/ FEMUR TWO VIEW MINIMUM RIGHT Exam Date: Exam Time: REPORT STATUS: Signed FEMUR TWO VIEW MINIMUM RIGHT HISTORY: Pain status post fall COMPARISON: None FINDINGS: Bones: No displa wilmar fracture. Osseous alignment is within normal limits. Joints: Tric ompartmental degenerative joint disease of the partially visualized right knee Soft tissues: The soft tissues appear unremarkable. IMPRESSION: No acute radiographic abnormality. Degenerative changes of the right knee Signed by: Dr. Shana Echeverria M.D. on 06/03/2018 7:07 AM Dictated By: SHANA TIAN MD 6 COPY TO: TARA STEIN MD FEMUR 2 VIEWS MINIMUM [id number] 06:43:00 [place] [address] Patient Name: MOJGAN CUMMINGS MR #: [id number] : 1950 Age/Sex: 68/F Req #: [id number] Adm Physician: ILAN STEIN MD Ordered by: ILAN STEIN MD Report #: [id number] Location: MED/SURG2 Room/Bed: [facility] Procedure: [id number] DX/ FEMUR 2 VIEWS MINIMUM LEFT Exam Date: Exam Time: REPORT STATUS: Signed FEMUR 2 VIEWS MINIMUM LEFT HISTORY: Status p ost fall COMPARISON: 06/03/2018 pelvic x-ray and 01/13/2018 KUB ROMEO DINGS: Bones: Chronic fracture dislocation of the left hip Extensive perio steal reaction noted in the distribution of the intertrochanteric line Romina ints: Complete deformity and dislocation of the left hip joint Soft tissu es: The soft tissues appear unremarkable. IMPRESSION: Chronic fract ure dislocation of the left hip joint, stable since 2017 Signed by: Dr. Gerald Echeverria M.D. on 06/03/2018 7:06 AM Dictated By: SHANA TIAN MD 5 Transcribed By: BAMBI on 06/03/18705 COPY TO: ILAN STEIN MD CT BRAIN [id number] 06:17:00 [place] [address] Patient Name: MOJGAN CUMMINGS MR #: [id number] : 1950 Age/Sex: 68/F Req #: [id number] Adm Physician: ILAN STEIN MD Ordered by: ILAN STEIN MD Report #: [id number] [facility]: [facility] Room/Bed: [facility] Procedure: [id number] CT/ CT BRAIN WO Exam Date: 06/03/18 Exam Time: 0537 REPORT STATUS: Signed EXAMINATION: Head CT without contrast. HIST ORY:Fall. COMPARISON:None. TECHNIQUE: Multidetector axial images were obt ained from the foramen magnum to the vertex without contrast. The images were reconstructed using brain and bone algorithms. Thin section brain images were reformatted into coronal and sagittal planes. Dose modulation, iterative re construction, and/or weight based adjustment of the mA/kV was utilized to redu ce the radiation dose to as low as reasonably achievable. Intravenous con trast: None IMAGE QUALITY: Acceptable. FINDINGS: Skull/scalp: No lytic or blastic. lesions. No surgical changes. Parenchyma: No abnorma l density. No acute hemorrhage, mass or acute major vascular territorial infar ct. Arteries: No density suggestive of thrombosis. Dural sinuses: No abnormal density suggestive of thrombosis. Ventricles: No hydrocephal us or displacement. Extra-axial spaces: No abnormal density. Brain volume: Mild generalized cerebral volume loss. Craniocervical junction: No mass, Chiari malformation, or basilar invagination. Sella: No mass. Paranasal/mastoid sinuses: Partial opacification of the posterior aspect of bilateral mastoid air cells. IMPRESSION: No acute intracranial abnorma lity. Mild generalized cerebral volume loss. Signed by: Dr. Bo Liu M.D. on 06/03/2018 6:22 AM Dictated By: BO LIU MD Electro nically Signed By: BO LIU MD on 06/03/18621 Transcribed By: BAMBI on 06/03/18621 COPY TO: ILAN STEIN MD CHEST SINGLE (PORTABLE)2018-06-01 13:10:00 [facility] [address] [place] [address] Patient Name: MOJGAN CUMMINGS MR #: [id number] : 1950 Age/Sex: 68/F Req #: [id number] Adm Physician: Ordered by: WILIAM MARTINEZ MD Report #: [id number] Location: ER Room/Bed: Procedure: [id number] DX/CHEST SINGLE (PORTABLE) E xam Date: 06/01/18 Exam Time: 1237 REPORT STATU S: Signed Examination: Single AP view of the chest. COMPARISON: April 202017 INDICATION: Shortness of breath DISCUSSION: Lines/tu bes: Tracheostomy. Lungs: New left perihilar opacity. Right lung is clear . Pleura: No pleural effusion or pneumothorax. Heart and mediastinum: Prominent heart size and mediastinal contour. Bones and soft tissues: No acute bony abnormalities. IMPRESSION: New left perihilar opacity may reflect pneumonia or atelectasis. Signed by: Dr. Shantelle Jha M.D. on 06/01/2018 1:12 PM Dictated By: SHANTELLE JHA MD Electronically Si gned By: SHANTELLE JHA MD on 06/01/181311 Transcribed By: BAMBI on 1311 COPY TO: WILIAM MARTINEZ MD CHEST SINGLE (PORTABLE) 2018-05-14 06:49:00 [address], [place], [place] [address] Patient Name: MOJGAN CUMMINGS MR #: [id number] : 1950 Age/Sex: 68/F Req #: [id number] Adm Physician: Ordered by: PHOENIX CIFUENTES MD Report #: [id number] Location: ER Room/Bed: Procedure: [id number] DX/CHEST SINGLE (PORTABL E) Exam Date: 05/14/18 Exam Time: 634 REPORT STATUS: Signed CHEST SINGLE (PORTABLE), 05/14/2018 6:17 AM Technique: [facility] ST SINGLE (PORTABLE) Comparison: 7. Clinical history: SOB Finding s: See Impression Impression: Limited by body habitus and overlying sup port apparatus. Lines/tubes: Tracheostomy in place. 1. Stable enlarged cardi omediastinal silhouette. 2. Stable bibasilar atelectasis or scarring. No breezy a. 3. No effusion or pneumothorax. Signed by: Dr Ana Zhao MD on 05/14/2018 6:51 AM Dictated By: ANA ZHAO MD Electronically Sign ed By: ANA ZHAO MD on 05/14/18650 Transcribed By: BAMBI on 05/14/18650 COPY TO: PHOENIX CIFUENTES MD CHEST SINGLE (PORTABLE) 2018-04-11 02:11:[address] [address] Patient Name: MOJGAN CUMMINGS MR #: [id number] : 1950 Age/Sex: 68/F Req #: [id number] Adm Physician: Ordered by: SHABBIR MÉNDEZ MD Report #: [id number] Location: ER Room/Bed: Procedure: [id number] DX/CHEST SINGLE (PORTABLE) Exmalcolm m Date: 04/11/18 Exam Time: 146 REPORT STATUS: Signed EXAM: CHEST SINGLE (PORTABLE), AP 1 view INDICATION: Shortness of b reath COMPARISON: AP view the chest March 25, 2018 FINDINGS: LINES/TUBES: Stable appearance of tracheostomy. LUNGS: Scattered atelectatic changes. PLEURA: No effusions or pneumothorax. HEART AND MEDIASTINUM: Stable ap pearance. BONES AND SOFT TISSUES: Advanced degenerative changes of the bila teral shoulders. Partially visualized chronic deformity of the right humeral h ead. IMPRESSION: Stable appearance of the chest. Signed by: Uriah Ponce M.D. on 04/11/2018 2:12 AM Dictated By: AKANKSHA Swenson MD 1 Transcribed B y: BAMBI on 04/11/18211 COPY TO: SHABBIR MÉNDEZ MD CHEST SINGLE (PORTABLE)2018-03-25 22:55:00 [place] [address] Patient Name: MOJGAN CUMMINGS MR #: [id number] : 1950 Age/Sex: 68/F Req #: [id number] Adm Physician: Ordered by: PHOENIX CIFUENTES MD Report #: [id number] Location: ER Room/Bed: Procedure: DX/CHEST SINGLE (PORTABLE) Exam Date: 03/25/18 Exam Time: [address] ATUS: Signed EXAM: CHEST SINGLE (PORTABLE), AP 1 view INDICATION: Shortness of breath COMPARISON: AP view of the chest March 09, 2018 FINDINGS: DARCIE ES/TUBES: Tracheostomy tube. LUNGS: No consolidations or edema. Mild subseg mental atelectasis. PLEURA: No effusions or pneumothorax. HEART AND ME DIASTINUM: No interval change compared to prior exam. BONES AND SOFT TISSUE S: Degenerative changes of the bilateral shoulders and chronic right humeral h ead deformity. IMPRESSION: No significant interval change in appearance of the chest. Signed by: Dr. Akanksha Ponce M.D. on 03/25/2018 10:5 6 PM Dictated By: AKANKSHA PONCE MD 55 Transcribed By: BAMBI on 03/25/182255 COPY TO: PHOENIX CIFUENTES MD CHEST SINGLE (PORTABLE)2018-03-09 06:05:00 [place] [address] Patient Name: MOJGAN CUMMINGS MR #: [id number] : 05/1950 Age/Sex: 68/F Req #: [id number] [facility] Physician: ILAN MAURICIO MD Ordered by: IVETH COBIAN MD Report #: [id number] Loca tion: [facility] Room/Bed: [facility] 199-1 Procedure: DX/CHEST SINGLE (PORTABLE) Exam Date: Exam Time: REPORT STATUS: Signed CHEST SINGLE (PORTABLE), 03/09/2018 9:00 AM Te chnique: CHEST SINGLE (PORTABLE) Comparison: Previous day Clinical history: Status post chest tube removal Findings: See Impression Impression: 1. Lines/Tubes: Removal of right chest tube. Stable tracheostomy. 2. Stable enlarged cardiomediastinal silhouette. 3. Stable small right apical pneumothor ax status post chest tube removal. 4. Persistent perihilar/bibasilar opacities . Signed by: Dr Ana Zhao MD on 03/09/2018 6:08 AM Dictated By: ANA ZHAO MD 060 8 Transcribed By: BAMBI on 03/09/18 0608 COPY TO: IVETH COBIAN MD CHEST SINGLE (PORTABLE)2018-03-08 14:02:00 [place] [address] Patient Name: MOJGAN CUMMINGS MR #: [id number] : 1950 Age/Sex: 68/F Req #: [id number] Adm Physician: ILAN STEIN MD Ordered by: IVETH COBIAN MD Report #: [id number] Location: [facility] Room/Bed: [place] [address] Procedure: [id number] DX/CHEST SINGLE (PORTABLE) Exam Date: 03/08/18 Exam Time: 1300 REPORT STATUS: Signed PROCEDURE: A single AP view of the c hest. COMPARISON: [facility], DX, CHEST SINGLE (PORTABLE), 03/08/2018, 6:08. INDICATIONS: CHEST TUBE REMOVAL FINDINGS: Lines/tubes: Right chest tube has been removed. Tracheostomy tube again noted . Lungs: Unchanged pulmonary edema. Pleura: Small apical pneumothora x present. Heart and mediastinum: The heart remains enlarged. Bones : No acute bony abnormality. IMPRESSION: 1. Status post chest tube removal with small apical pneumothorax present. 2. Unchanged cardiomegaly with pulmonary edema. Danae Oneil D.O. Dictated by: Danae byers D.O. on 03/08/2018 at 13:42 Electronically approved by: Danae Oneil D.O. on 03/08/2018 at 13:42 Dictated By: DANAE ONEIL DO Gem ctronically Signed By: DANAE ONEIL DO on 03/08/18 140 Transcribed By: DEN on 03/08/18 140 COPY TO: IVETH COBIAN MD CHEST SINGLE (PORTABLE)2018-03-08 06:31:00 [place] [address] Patient Name: MOJGAN CUMMINGS MR #: [id number] : 1950 Age/Sex: 68/F Req #: [id number] Adm Physician: ILAN STEIN MD Ordered by: IVETH COBIAN MD Report #: [id number] Location: [facility] Room/Bed: [place] [address] Procedure: [id number] DX/CHEST SINGLE (PORTABLE) Exam Date: 03/08/18 Exam Time: 0550 REPORT STATUS: Signed CHEST SINGLE (PORTABLE), 03/08/2018 7:0 0 AM Technique: CHEST SINGLE (PORTABLE) Comparison: 03/06/2018 Clinical history: Pneumothorax Findings: See Impression Impression: Limited by portable technique and soft tissue attenuation 1. Lines/Tubes: Stable trac heostomy and right chest tube. 2. Stable enlarged cardiomediastinal silhouette and bilateral pulmonary opacities, possibly underlying edema. 3. Slightly decreased small right apical pneumothorax. Signed by: Dr Ana Zhao MD on 03/08/2018 6:36 AM Dictated By: ANA ZHAO MD Electronically Sign ed By: ANA ZHAO MD on 03/08/18635 Transcribed By: BAMBI on 03/08/18635 COPY TO: IVETH COBIAN MD CHEST SINGLE (PORTABLE) 2018-03-06 06:16:00 [place] [address] Patient Name: MOJGAN CUMMINGS MR #: [id number] : 1950 Age/Sex: 68/F Req #: [id number] Adm Physician: ILAN STEIN MD Ordered by: IVETH COBIAN MD Report #: [id number] Location: [facility] Room/Bed: [place] [address] Procedure: [id number] DX/CHEST SINGLE (PORTABLE) Exam Date: 03/06/18 Exam Time: 0550 REPORT STATUS: Signed EXAM: CHEST SINGLE (PORTABLE), AP 1 vi ew INDICATION: Right sided chest tube COMPARISON: AP view of the chest March 05, 2018 FINDINGS: LINES/TUBES: Stable position of tracheostomy and right chest tube LUNGS: Stable bilateral airspace opacities, possibly edema. PLEURA: Small right apical pneumothorax with air gap measuring approximately 1 cm. HEART AND MEDIASTINUM: Stable appearance BONES AND SOFT TISSUES: No acute findings. IMPRESSION: Small right apical pneumothorax. Stable position of right chest tube. Signed by: Dr. Akanksha Ponce M.D. on 03/06/2018 6:20 AM Dictated By: AKANKSHA PONCE MD 9 Transcribed By: BAMBI on 03/06/18619 COPY TO: IVETH COBIAN MD CHEST SINGLE (PORTABLE)2018-03-05 06:02:00 [place] [address] Patient Name: MOJGAN CUMMINGS MR #: [id number] : 1950 Age/Sex: 68/F Req #: [id number] Adm Physician: ILAN STEIN MD Ordered by: IVETH COBIAN MD Report #: [id number] Location: ICU Room/Bed: ICU [facility] Procedure: [id number] DX /CHEST SINGLE (PORTABLE) Exam Date: 03/05/18 Exam Ti me: 0500 REPORT STATUS: Signed EXAM: CHEST SINGLE (PORTABLE), AP 1 view INDICATION: Chest tube, right pneumothorax COMPARISON: AP view of the chest March 04, 2018 FINDINGS: LINES/TUBES: Stable tracheostomy. The right chest tube may have been slightly retracted versus patient rotation. LUNGS: F aint bilateral opacities suggesting edema. PLEURA: Likely small bilateral pleural effusions. HEART AND MEDIASTINUM: Stable appearance given differenc es in positioning. BONES AND SOFT TISSUES: No acute findings. IMPRESS ION: No evidence of a pneumothorax. Signed by: Dr. Akanksha swenson M.D. on 03/05/2018 6:04 AM Dictated By: AKANSKHA PONCE MD [facility], [place] Signed By: AKANKSHA PONCE MD on 03/05/18603 Transcribed By: BAMBI on 03/05 COPY TO: IVETH COBIAN MD CHEST SINGLE (PORTABLE) 2018-03-04 08:00:[address] [address] Patient Name: MOJGAN CUMMINGS MR #: [id number] : 1950 Age/Sex: 68/F Req #: [id number] Adm Physician: ILAN STEIN MD Ordered by: BALBIR BARDALES MD Report #: [id number] Location: ICU Room/Bed: ICU [facility] Procedure: [id number] DX/CHEST SINGLE (PORTABLE) Exam Date: 03/04/18 Exam Time: 074 5 REPORT STATUS: Signed EXAMINATION: CHEST SINGLE (PORTABLE) INDICATION: S RIGHT CHEST TUBE FOR PNUEMO COMPARISON: Chest x-ray . FINDINGS: AP view TUBES and LINES: Stable right-victoriano ed chest tube. Tracheostomy tube remains in place. LUNGS: Lungs are not well inflated. Interval worsening of diffuse hazy opacifications of bilateral chest especially in the left lung. PLEURA: Likely small bilateral pleural effusions. HEART AND MEDIASTINUM: Cardiac size is severely enlarged. BONES AND SOFT TISSUES: No acute osseous lesion. Soft tissues are unrema rkable. UPPER ABDOMEN: No free air under the diaphragm. IMPRESSION : Stable right chest tube with no pneumothorax. Worsening pulmonary edema. Signed by: Dr. Cornelius Sprague M.D. on 03/04/2018 8:08 AM Dictated By: CORNELIUS CURTIS MD 7 Transcribed By: BRONWYN FATIMA on 03/04/18807 COPY TO: BALBIR BARDALES MD CHEST XRAY POST [id number] 20:28:00 [place] [address] Patient Name: MOJGAN CUMMINGS MR #: [id number] : 1950 Age/Sex: 68/F Req #: [id number] Adm Physician: ILAN STEIN MD Ordered by: IVETH COBIAN MD Report #: [id number] Location: ICU Room/Bed: ICU 189 Procedure: DX /CHEST XRAY POST PROCEDURE Exam Date: Exam Time: REPORT STATUS: Signed Examination: Single AP view of the chest. [facility] PARISON: Chest AP portable 03/03/2018 INDICATION: Status post chest tube scott cement IMPRESSION: 1. Lines and Tubes: Interval placement of rig ht-sided chest tube, with tip projecting in the right apex. 2. Interval res olution of the previously visualized right pneumothorax. No residual pneumotho rax is identified in this limited view. Unchanged central pulmonary venous con gestion and likely interstitial edema in the left lung. 3. Enlarged cardiac s ilhouette 4. No acute bony abnormalities. Signed by: Dr. Og boston M.D. on 03/03/2018 8:30 PM Dictated By: OG TURNER MD [facility] Signed By: OG TURNER MD on 03/03/182029 Transcribed By: BAMBI on 03/03/182029 COPY TO: IVETH COBIAN MD CHEST SINGLE (PORTABLE)2018-03-03 19:34:00 [place] [address] Patient Name: MOJGAN CUMMINGS MR #: [id number] : 1950 Age/Sex: 68/F Req #: [id number] Adm Physician: ILAN STEIN MD Ordered by: AKILAH GRACIA MD, MD Report #: [id number] Location: ICU Room/Bed: ICU 189 Procedure: [id number] DX /CHEST SINGLE (PORTABLE) Exam Date: 03/02/18 Exam Ti me: 2320 REPORT STATUS: Signed Examination: Single AP view of the chest . COMPARISON: CT soft tissue neck 03/01/2018, AP chest 02/26/2018, CT chest 02/25/2018 INDICATION: Tracheostomy tube replaced, from cytopenia I MPRESSION: 1. Lines and Tubes: Tracheostomy tube in place. 2. Increase d retrocardiac density and patchy opacity in the left lower lung, consistent w ith previously visualized left lower lobe consolidation. 3. Enlarged cardiac silhouette. Pulmonary vasculature is normal. 4. No acute bony abnormalities . Signed by: Dr. Og Turner M.D. on 03/03/2018 7:36 PM Dictat ed By: OG TURNER MD 35 COPY TO: YOVANI GRACIA CHEST SINGLE (PORTABLE)2018-03-03 18:07:00 [place] [address] Patient Name: MOJGAN CUMMINGS MR #: [id number] : 1950 Age/Sex: 68/F Req #: [id number] Adm Physician: ILAN STEIN MD Ordered by: BALBIR BARDALES MD Report #: [id number] Location: ICU Room/Bed: ICU [facility] Procedure: [id number] DX/CHEST SINGLE (PORTABLE) Exam Date: 03/03/18 Exam Time: 164 5 REPORT STATUS: Signed PROCEDURE: A single AP view of the chest. COMPARISON: [facility], DX, CHEST SINGLE (PORTABLE), 8, 5:51. [facility], DX, CHEST SINGLE (PORTABLE), 03/02/2018, 23 :15. INDICATIONS: SOB, COUGH FINDINGS: Lines/tubes: Tracheos anil tube with distal tip approximately 2-3 cm proximal to the marlyn. Lungs: The mild diffuse increased density throughout the left pneumothorax.. There is no evidence of pneumonia or pulmonary edema. Pleura: There is a moderate to large right sided pneumothorax with an air gap of 5.5 cm. Heart and mediastinum: The heart and the mediastinum are unremarkable. Sonu lyndon: No acute bony abnormality. IMPRESSION: 1. Moderate to large r ight pneumothorax. Discussed with nurse Precious from the ICU at 6 PM on 03/03 who will relay the information to Dr. Sanchez from ENT. Babak Franklin M.D. Dictated by: Babak Franklin M.D. on 03/03/2018 at 18:07 Electronically approved by: Babak Franklin M.D. on 03/03/2018 at 18:07 Dictated By: NAINA FRANKLIN MD, MD 3627 Transcribed By: DEN on 03/03/18 1 807 COPY TO: BALBIR BARDALES MD CT SOFT TISSUE NECK [id number] 13:43:00 [place] [address] Patient Name: MOJGAN CUMMINGS MR #: [id number] : 1950 Age/Sex: 68/F Req #: [id number] Adm Physician: ILAN STEIN MD Ordered by: BASIL POSADAS, AKILAH POSADAS Report #: [id number] Location: MED/SURG2 Room/Bed: 202 Procedure: [id number] CT/CT SOFT TISSUE NECK WO Exam Date: 03/01/18 Exam T rissa: 1120 REPORT STATUS: Signed History: Tracheal stenosis Comparison studies: CT of chest with contrast 02/25/2018 Technique: Axial images were obtained from the skull base to the thoracic inlet. Coronal and sagittal marge ges reconstructed from the axial data. Intravenous contrast: None Find ings: Tracheostomy changes. Concentric thickening of the tracheal wall inferior to the tracheostomy tube with more than 70% stenosis of a 1.4 cm seg ment, likely related to scarring Evaluation of the neck is limited due to t he absence of intravenous contrast. In spite of this limitation, Soft tis sues: No acute abnormalities. Atrophic changes of the paraspinal musculature.. Lymph nodes: No radiographically significant adenopathy. Vessels: Cannot evaluate patency. Atherosclerotic calcifications at the bulb. Gla nds (thyroid, parotid and submandibular): Normal in size and symmetric. No m asses. Orbits: No abnormalities. Paranasal sinuses: Clear Temporal bone s: Opacification of the bilateral mastoid air cells, secondary to nonspecific inflammation. Skull base and facial bones: Intact. Cervical spine: F acet hypertrophy and uncinate process hypertrophy results in mild multilevel f oraminal narrowing. The canal is grossly patent Partially visualized bilate ral lung consolidation and small left apical pneumothorax, stable. Dilated eso phagus. Degenerative changes of the bilateral glenohumeral joints IMPR ESSION: 1. 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 2. Other findings as detailed above. 3. Signed by: DR Jakob Burr M.D. on 03/01/2018 1:51 PM Dictated By: JAKOB PASCAL MD 1351 Transcribed By: BAMBI on 0 03/01/18 1351 COPY TO: AKILAH GRACIA CHEST SINGLE (PORTABLE) 2018-02-26 06:10:00 [facility] [address] [place] [address] Patient Name: MOJGAN CUMMINGS MR #: [id number] : 1950 Age/Sex: 68/F Req #: [id number] Adm Physician: ILAN STEIN MD Ordered by: BALBIR BARDALES MD Report #: [id number] Location: ICU Room/Bed: ICU [facility] Procedure: [id number] DX/CHEST SINGLE (PORTABLE) Exam Date: 02/26/18 Exam Time: 054 0 REPORT STATUS: Signed EXAMINATION: CHEST SINGLE (PORTABLE) 018 7:00 AM COMPARISON: 02/24/2018 INDICATION: Pneumonia. DIS CUSSION: LINES: Tracheostomy tube is visualized. LUNGS: Lung volumes ar e low. Airspace opacity involving the left hemithorax is compatible with known atelectasis and consolidation. PLEURA: The known left pneumothorax is not conspicuous on today's exam HEART AND MEDIASTINUM: Mild enlargement of the cardiac silhouette. BONES AND SOFT TISSUES: No acute osseous lesion. The soft tissues are normal. IMPRESSION: 1. Pneumothorax is not visuali zed. 2. Left lung airspace disease compatible with atelectasis versus pneumon ia. Signed by: Dr. Shana Echeverria M.D. on 02/26/2018 6:13 AM Dictated B y: SHANA TIAN MD 2 Transcribed By: BAMBI on 02/26/18612 COPY TO: BALBIR BARDALES MD CT CHEST [id number] 17:07:00 [facility] [address] [place] [address] Patient Name: MOJGAN CUMMINSG MR #: [id number] : 1950 Age/Sex: 68/F Req #: [id number] Adm Physician: ILAN STEIN MD Ordered by: NATHANIEL ROMERO MD Report #: [id number] Location: ICU Room/Bed: ICU [facility] Procedure: [id number] CT/CT CHES T W Exam Date: 02/25/18 Exam Time: 1702 REPORT STATUS: Signed EXAM: CT Chest WITH contrast, PE protocol 02/25/2018 2:41 PM INDICATION: Dyspnea. Rule out pulmonary embolus COMPARISON: None TECHNIQUE: Chest was scanned utilizing a multidetector helical scanner from the lung apex through the level of the adrenal glands after the uneventful administration of IV contrast. Coronal and sagittal reformations were obtained. Pulmonary emb olus protocol was performed. IV CONTRAST: 100 mL of Isovue-370 RADIATION DOSE: Total DLP: 438.44 mGy*cm Estimated effe ctive dose: (DLP x 0.014 x size factor) mSv COMPLICATIONS: None FINDINGS: LINES/ TUBES: A tracheostomy tube is in position. PULMONARY ARTERIES: Limited examination due to motion and patient body habitus and res ulting noise artifact. No pulmonary embolus to at least the lobar level. Th e main pulmonary artery is normal in caliber, measuring 2.6 cm. LUNGS AND A IRWAYS: There is bibasilar atelectasis/consolidation. Large airways appear pa tent PLEURA: Small to moderate left anterior pneumothorax. No pleural effus ion. HEART AND MEDIASTINUM:Small prevascular lymph nodes measure up to 9 mm and are likely reactive. 1.2 cm right paratracheal lymph node (series 2, image 32) is nonspecific. The heart is mildly enlarged. No pericardial effusi on. The visualized thyroid gland is normal. The esophagus is patulou s. UPPER ABDOMEN: Limited evaluation of the upper abdomen. There are athe rosclerotic calcifications of the splenic artery, partially visualized. BON ES: No aggressive lytic or blastic lesions. Severe degenerative changes of the shoulders bilaterally. Multilevel degenerative changes of the thoracic spine. SOFT TISSUES: Unremarkable. IMPRESSION: 1. Limited examination due to patient body habitus and motion. 2. No pulmonary embolus to the lobar level. 3. Bibasilar atelectasis/consolidation. Aspiration is a possibilit y. 4. Small to moderate left apical pneumothorax. 5. Mildly enlarged mediastinal lymph nodes are nonspecific and may be reactive. Findings re layed to Sofy, the patient's ICU nurse, at 5:28 pm on 02/25/2018. Lizzy d by: Dr. Minal Jackson M.D. on 02/25/2018 5:29 PM Dictated By: MINAL JACKSON MD 28 Tr anscribed By: BAMBI on 02/25/181728 COPY TO: NATHANIEL ROMERO MD CHEST SINGLE (PORTABLE)2018-02-24 10:40:00 [place] [address] Patient Name: MOJGAN CUMMINGS MR #: [id number] : 1950 Age/Sex: 68/F Req #: [id number] Adm Physician: Ordered by: ENRRIQUE TSAI MD Report #: [id number] Location: ER Room/Bed: Procedure: [id number] DX/CHEST SINGLE (PORTABLE) E xam Date: 02/24/18 Exam Time: 1020 REPORT STATU S: Signed PROCEDURE: CHEST SINGLE (PORTABLE) COMPARISON: 02/10/2018. INDIC ATIONS: SHORTNESS OF BREATH, TRACH FINDINGS: Right upper extremity PICC has been removed. Tracheostomy is unchanged in position when accounting for differences in patient positioning. Lung volumes remain low with line ar opacity in the left lung base compatible with subsegmental atelectasis. No focal airspace consolidation, large effusion, or pneumothorax. Stable car diomediastinal contour with tortuosity of the thoracic aorta. No overt pulmon silverio edema. CONCLUSION: Low lung volumes with subsegmental atelectasis in the left lung base. No consolidative pneumonia. Dictated by: Balbir Williamson M.D. on 02/24/2018 at 10:40 Electronically approved by: Balbir Williamson M.D. on 02/24/2018 at 10:40 Dictated By: BALBIR WILLIAMSON MD Elec tronically Signed By: BALBIR WILLIAMSON MD on 02/24/18 1040 Transcribed By: DEN aburto 02/24/18 1040 COPY TO: ENRRIQUE TSAI MD - CT NECK W/O [id number] 16:43:00 Name: MOJGAN CUMMINGS [facility] : 1950 Age/S: 67 / F [address] [facility] Unit #: [id number] Loc: [place] [address] Phys: Mark Anthony Kerns MD Acct: [id number] Dis Date: Status: UNK PHONE #: [phone] Exam Date: 11/07/2017 1525 FAX #: [phone] Reason: Evaluate for tracheal stenosis EXAMS: CPT CODE: [id number] CT NECK W/O CONTRAST 21922 HISTORY: Tracheal stenosis TECHNIQUE: 2.[address] of the neck without contrast. Sagittal and coronal reformatted images were generated. Automated exposure control for dose reduction. COMPARISON: None FINDINGS: Limited evaluation the neck soft tissues without IV contrast. Tracheostomy tube in place. No tracheal stenosis is observed. No supraglottic or glottic lesion. Nasopharynx, oropharynx, and hypopharynx are clear. Tongue, base of tongue, and floor of mouth are unremarkable. Thyroid gland is unremarkable. Major salivary glands are unremarkable. No cervical lymphadenopathy. Atherosclerotic vascular calcification of the carotid bifurcations. Visualized intracranial compartments are unremarkable. Intraorbital structures are within normal limits. Visualized paranasal sinuses are clear. Bilateral mastoid opacification. Degenerative changes of the cervical spine. Right apical atelectasis/scarring. IMPRESSION: Tracheostomy tube in place. No tracheal stenosis is observed. at 1643 Reported and signed by: Lenka Farrar D.O. CC: Mark Anthony Kerns MD; Ilan Stein; Oswald Ho DO Technologist:Cindy ALEXANDRA(R); MISTY Jeong CTDI: DLP: Trnscb Date/Time: 11/07/2017 (8393) [email or web address] Orig Print D/T: S: 11/07/2017 (5553) PAGE 1 Signed Report - CT NECK W/O [id number] 16:43:00 Name: MOJGAN CUMMINGS [facility] : 1950 Age/S: 67 / F [address] [facility] Unit #: [id number] Loc: [place] [address] Phys: Mark Anthony Kerns MD Acct: [id number] Dis Date: Status: UNK PHONE #: [phone] Exam Date: 11/07/2017 1525 FAX #: [phone] Reason: Evaluate for tracheal stenosis EXAMS: CPT CODE: [id number] CT NECK W/O CONTRAST 92725 HISTORY: Tracheal stenosis TECHNIQUE: 2.[address] of the neck without contrast. Sagittal and coronal reformatted images were generated. Automated exposure control for dose reduction. COMPARISON: None FINDINGS: Limited evaluation the neck soft tissues without IV contrast. Tracheostomy tube in place. No tracheal stenosis is observed. No supraglottic or glottic lesion. Nasopharynx, oropharynx, and hypopharynx are clear. Tongue, base of tongue, and floor of mouth are u nremarkable. Thyroid gland is unremarkable. Major salivary glands are unre markable. No cervical lymphadenopathy. Atherosclerotic vascular calcificat ion of the carotid bifurcations. Visualized intracranial compartments are unremarkable. Intraorbital structures are within normal limits. Visualized paranasal sinuses are clear. Bilateral mastoid opacification. Degenerative changes of the cervical spine. Right apical atelectasis/scarring. IMPRESSION: Tracheostomy tube in place. No t manjeet stenosis is observed. at 1643 Reported and signed by: Lenka Farrar D.O. CC: Mark Anthony Kerns MD; Torsten Stein Toby C DO Technologist:Cindy ALEXANDRA(R); MISTY Jeong CTDI: DLP: Trnscb Date/Time: 11/07/2017 (739) [email or web address] Orig Print D/T: S: 11/07/2017 (2677) PAGE 1 Signed Report - XR CHEST 1 [id number] 07:27:00 FAX: Mark Anthony Parker MD [phone] [place]: St: [facility] FAX: Ilan Holt MD FAX: Oswald Howard DO --------- Name: MOJGAN CUMMINGS [facility] : 1950 Age/S: 67/F [address] it #: [id number] Loc: [place] [address] Phys: Mark Anthony Kerns MD Acct: [id number] Dis Date: Status: K PH ONE #: [phone] Exam Date: 11/05/2017 0513 FAX #: [phone] Reason: REsp Failure EXAMS: CPT CODE: [id number] XR CHEST 1 V 43849 REASON FOR EXAM: REsp Failure EXAM ORDER DATE: 11/05/2017 6:00 AM Ordering Crispin: Mark Anthony Kerns MD PROCEDURE: - XR CHEST 1 V COMPARISON: 11/03/2017 FINDINGS: Portable AP frontal view of the chest obtained at 4:19 AM shows clear lungs. There is no evid ence of consolidation. There is no evidence of effusion. The heart size is minimally enlarged. Stable appearance of the tracheostomy tube. Pulmonary vasculatures are unremarkable. IMPRESSION: Minimal card iomegaly. at 072 7 Reported and signed by: Brayan Toro M.D. CC: Mark Anthony Kerns MD; Ilan Stein; Oswald Ho DO Technologist: MARC BRAY, RT(R); Mary Harris Trnscrd Date/Time/By: 2017 (0721) : By: GordoL Orig Print D/T: S: 11/05/2017 (5728) PAGE 1 Signed Report - XR CHEST 1 [id number] 07:27:00 FAX: Mark Anthony Parker MD [phone] [place]: St: [facility] FAX: Ilan Holt MD FAX: Oswald Howard DO [phone] Name: MOJGAN CUMMINGS [facility] : 1950 Age/S: 67/F [address] Unit #: [id number] Loc: [place] [address] Phys: Mark Anthony Kerns MD Acct: [id number] Dis Date: Status: UNK PH ONE #: [phone] Exam Date: 11/05/2017 05 FAX #: [phone] Reason: REsp Failure EXAMS: CPT CODE: [id number] XR CHEST 1 V 52230 REASON FOR EXAM: REsp Failure EXAM ORDER DATE: 11/05/2017 6:00 AM Ordering Rigoberto.: Mark Anthony Kerns MD PROCEDURE: - XR CHEST 1 V COMPARISON: 11/03/2017 FINDINGS: Portable AP frontal view of the chest obtained at 4:19 AM shows clear lungs. There is no evid ence of consolidation. There is no evidence of effusion. The heart size is minimally enlarged. Stable appearance of the tracheostomy tube. Pulmonary vasculatures are unremarkable. IMPRESSION: Minimal card iomegaly. at 072 7 Reported and signed by: Brayan Toro M.D. CC: Mark Anthony Kerns MD; Ilan Stein; Oswald Ho DO Technologist: MARC BRAY, RT(R); Mary Harris Trnscrd Date/Time/By: 2017 (0727) : By: GordoL Orig Print D/T: S: 11/05/2017 (0730) PAGE 1 Signed Report - XR CHEST 1 [id number] 22:54:00 FAX: Shabbir Puentes MD [place]: St: [facility] Name: MOJGAN SAUCEDO [facility] : [birth year] Age/S: 67/F [address] [facility] Unit #: [id number] Loc: [place] [address] Phys: Shabbir Puentes MD Acct: [id number] Dis Date: Status: UNK PHONE #: [phone] Exam Date: 11/03/20174 FAX #: [phone] Reason: CODE SEPSIS EXAMS: CPT CODE: [id number] XR CHEST 1 V 49451 EXAM: Chest x-ray, one view; INFORMATION: AMS, respiratory distress; IMPRESSION: 1. Lungs are clear; no infiltrates, edema, no effusions. 2. Tracheostomy tube in place. 3. Mild cardiomegaly. at 7969 Reported and signed by: Rex Gates M.D. CC: Shabbir Puentes MD Technologist: FABI Marsh Trnscrd Date/Time/By: 11/03/2017 (3377) : By: HarryGRW Orig Print D/T: S: 11/03/2017 (9937) PAGE 1 Signed Report - XR CHEST 1 [id number] 22:54:00 FAX: Shabbir Puentes MD [place]: St: UNK Name: Faith CHRISSYMOJGAN MOLINA [facility] : [birth year] Age/S: 67/F [address] [facility] Unit #: [id number] Loc: [place] [address] Phys: Shabbir Puentes MD Acct: [id number] Dis Date: Status: UNK PHONE #: [phone] Exam Date: 11/03/20172233 FAX #: [phone] Reason: CODE SEPSIS EXAMS: CPT CODE: [id number] XR CHEST 1 V 50980 EXAM: Chest x-ray, one view; INFORMATION: AMS, respiratory distress; IMPRESSION: 1. Lungs are clear; no infiltrates, edema, no effusions. 2. Tracheostomy tube in place. 3. Mild cardiomegaly. at 0328 Reported and signed by: Rex Gates M.D. CC: Shabbir Puentes MD Technologist: Dwight Salinas RTInesR; Abigail Darling Trnscrd Date/Time/By: 11/03/2017 (7751) : By: Omar Orig Print D/T: S: 11/03/2017 (4249) PAGE 1 Signed Report - CT HEAD/BRAIN W/O [id number] 22:28:00 Name: MOJGAN CUMMINGS [facility] : 1950 Age/S: 67 / F [address] Unit #: [id number] Loc: [place] [address] Phys: Shabbir Puentes MD Acct: [id number] Dis Date: Status: UNK PHONE #: [phone] Exam Date: 11/03/20172218 FAX #: [phone] Reason: CODE STROKE EXAMS: CPT CODE: [id number] CT HEAD/BRAIN W/O CONT 62288 EXAM: CT of the head without contrast; INFORMATION: AMS, code stroke; TECHNIQUE AND FINDINGS: CT dose reduction protocol; 2.5 minute axial scans without contrast. Study is partially degraded by motion artifacts. There is no evidence of intra or extra-axial hemorrhage, mass lesions or midline shift. Unremarkable zimmerman/white matter differentiation. Ventricles are symmetric and of normal diameter; sulci and basilar cisterns are intact. Partial opacification of mastoid air cells. IMPRESSION: 1. No evidence of intracranial hemorrhage or acute territorial infarction. 2. No significant change compared with a recent study from September 20, 2017; Mastoiditis. FINDINGS were discussed with Dr. Puentes, ER, by phone, at 2227 hours; FOR INTERNAL CODING PURPOSES ONLY RESULT CODE: CVR at 2222 Reported and signed by: Rex Gates M.D. CC: Shabbir Puentes MD Technologist:Cindy Paredes RT(R); MISTY Jeong CTDI: DLP: Trnscb Date/Time: 11/03/2017 (321) JenniferW Orig Print D/T: S: 11/03/2017 (1322) PAGE 1 Signed Report - CT HEAD/BRAIN W/O [id number] 22:28:00 Name: MOJGAN CUMMINGS [facility] : 1950 Age/S: 67 / F [address] Unit #: [id number] Loc: [place] [address] Phys: Jayy Puentes MD Acct: [id number] Di s Date: Status: UNK PHONE #: Exam Date: 11/03/20172218 FAX #: Reason: CODE STROKE EXAMS: CPT CODE: [id number] CT HEAD/BRAIN W/O CONT 85994 EXAM: CT of the head with out contrast; INFORMATION: AMS, code stroke; TECHNIQ UE AND FINDINGS: CT dose reduction protocol; 2.5 minute axial scans withou t contrast. Study is partially degraded by motion artifacts. There i s no evidence of intra or extra-axial hemorrhage, mass lesions or midline shift. Unremarkable zimmerman/white matter differentiation. Ventricles ar e symmetric and of normal diameter; sulci and basilar cisterns are intact. Partial opacification of mastoid air cells. IMPRESSION: 1. No evidence of intracranial hemorrhage or acute territorial in farction. 2. No significant change compared with a recent study from Sep; Mastoiditis. FINDINGS were discu ssed with Dr. Puentes, ER, by phone, at 2227 hours; FOR INTERNAL CODING PURPOSES ONLY RESULT CODE: C VR at 2228 Repo rted and signed by: Rex Gates M.D. CC: Shabbir Puentes MD Technologist:Cindy Paredes RT(R); MISTY Salgado TDI: DLP: Trnscb Date/Time: 11/03/2017 (6694) JenniferW Orig Print D/T: S: 11/03/2017 (6473) PAGE 1 Signed Report - XR CHEST 1 [id number] 09:09:00 FAX: Mark Anthony Parker MD [phone] [place]: St: [facility] FAX: Ilan Holt MD Name: MOJGAN CUMMINGS [facility] : 1950 Age/S: 67/F [address] Unit #: [id number] Loc: [place] [address] Phys: Mark Anthony Kerns MD Acct: [id number] Dis Date: Status: UNK PHONE #: [phone] Exam Date: 10/07/2017817 FAX #: [phone] Reason: resp failure EXAMS: CPT CODE: [id number] XR CHEST 1 V 11682 HISTORY: Respiratory failure. COMPARISON: October 04, 2017. Resolving infiltrates. Patchy consolidation persists in the left upper lobe. Dependent changes. Moderate cardiomegaly. Tracheostomy tube is in good position. IMPRESSION: Decreasing infiltrate with persistent consolidation in the left upper lobe. at 0909 Reported and signed by: Clem Grissom M.D. CC: Mark Anthony Kerns MD; Ilan Stein chnologist: OCTAVIO VASQUEZ JR Trnscrd Date/ Time/By: 10/07/2017 (0909) : By: [email or web address] Orig Print D/T: S: 10/07/19 18 (1912) PAGE 1 Signed Report - XR CHEST 1 [id number] 09:09:00 FAX: Mark Anthony Parker MD [phone] [place]: St: [facility] FAX: Ilan Holt MD Name: MOJGAN CUMMINGS [facility] : 1950 Age/S: 67/F [address] Unit #: [id number] Loc: [facility] [place] [address] Phys: Mark Anthony Kerns MD Acct: [id number] Dis Date: Status: UNK PHONE #: [phone] Exam Date: 10/07/2017817 FAX #: [phone] Reason: resp failure EXAMS: CPT CODE: [id number] XR CHEST 1 V 67924 HISTORY: Respiratory failure. COMPARISON: October 04, 2017. Resolving infiltrates. Patchy consolidation persists in the left upper lobe. Dependent changes. Moderate cardiomegaly. Tracheostomy tube is in good position. IMPRESSION: Decreasing infiltrate with persistent consolidation in the left upper lobe. at 0909 Reported and signed by: Clem Grissom M.D. CC: Mark Anthony Kerns MD; Ilan Stein chnologist: OCTAVIO VASQUEZ JR Trnscrd Date/ Time/By: 10/07/2017 (0909) : By: [email or web address] Orig Print D/T: S: 10/07/19 18 (5567) PAGE 1 Signed Report - XR CHEST 1 [id number] 04:58:00 FAX: Mark Anthony Parker MD [phone] [place]: St: [facility] FAX: Ilan Holt MD Name: MOJGAN CUMMINGS [facility] : 1950 Age/S: 67/F [address] Unit #: [id number] Loc: [place] [address] Phys: Mark Anthony Kerns MD Acct: [id number] Dis Date: Status: UNK PHONE #: [phone] Exam Date: 10/04/2017 0446 FAX #: [phone] Reason: Resp Failure EXAMS: CPT CODE: [id number] XR CHEST 1 V 44728 HISTORY: Respiratory failure Location: C3 C OMPARISON:10/02/2017 FINDINGS: There is car diomegaly with vascular congestion perihilar edema. Tracheostomy tube is demonstrated. Right IJ central line is present. No pneumothorax. Bibasi lar opacities are present. IMPRESSION: 1. Car diomegaly with vascular congestion mild perihilar edema as well as basil ar opacities compatible with areas of atelectasis and/or edema. at 0455 Reported and signed by: Misty Vizcarra MD CC: Mark Anthony Cleveland MD; Ilan Stein Technologist: Abigail Darling Trnscrd Date/Time/By: 10/04/2017 (0458) : By: [email or web address] Orig Print D/T: S: 10/04/2017 (0501) PAGE 1 Signed Report - XR CHEST 1 [id number] 04:58:00 FAX: Mark Anthony Parker MD [phone] [place]: St: [facility] FAX: Ilan Holt MD Name: MOJGAN CUMMINGS [facility] : 1950 Age/S: 67/F [address] Unit #: [id number] Loc: [place] [address] Phys: Mark Anthony Kerns MD Acct: [id number] Dis Date: Status: UNK PHONE #: [phone] Exam Date: 10/04/2017443 FAX #: [phone] Reason: Resp Failure EXAMS: CPT CODE: [id number] XR CHEST 1 V 63462 HISTORY: Respiratory failure Location: C3 COMPARISON:10/02/2017 FINDINGS: There is cardiomegaly with vascular congestion perihilar edema. Tracheostomy tube is demonstrated. Right IJ central line is present. No pneumothorax. Bibasilar opacities are present. IMPRESSION: 1. Cardiomegaly with vascular congestion mild perihilar edema as well as basilar opacities compatible with areas of atelectasis and/or edema. at 0452 Reported and signed by: Misty Vizcarra MD CC: Mark Anthony Cleveland MD; Ilan Stein Technologist: Abigail Darling Trnscrd Date/Time/By: 10/04/2017 (0458) : By: [email or web address] Orig Print D/T: S: 10/04/2017 (050) PAGE 1 Signed Report - XR CHEST 1 [id number] 07:21:00 FAX: Mark Anthony Parker MD [phone] [place]: St: [facility] FAX: Ilan Holt MD Name: MOJGAN CUMMINGS [facility] : 1950 Age/S: 67/F [address] Unit #: [id number] Loc: [place] [address] Phys: Mark Anthony Kerns MD Acct: [id number] Dis Date: Status: UNK PHONE #: [phone] Exam Date: 10/02/2017518 FAX #: [phone] Reason: Resp Failure EXAMS: CPT CODE: [id number] XR CHEST 1 V 47368 HISTORY: Pneumonia. COMPARISON: September 30, 2017. Right central line and tracheostomy tube are unchanged. Patchy left lung infiltrate appears improved. Dependent changes. Cardiomegaly. IMPRESSION: Patchy left lung infiltrate is unchanged. at 0721 Reported and signed by: Clem Grissom M.D. CC: Mark Anthony Kerns MD; Ilan Stein Technologist: JERAMIE LOPEZ, RT(R); Mary Harris Trnscrd Date/Time/By: 10/02/2017 (0721) : By: [email or web address] Orig Print D/T: S: 10/02/2017 (0778) PAGE 1 Signed Report - XR CHEST 1 [id number] 07:21:00 FAX: Mark Anthony Parker MD [phone] [place]: St: [facility] FAX: Ilan Holt MD Name: MOJGAN CUMMINGS [facility] : 1950 Age/S: 67/F [address] [facility] Unit #: [id number] Loc: [place] [address] Phys: Mark Anthony Kerns MD Acct: [id number] Dis Date: Status: UNK PHONE #: [phone] Exam Date: 10/02/2017518 FAX #: [phone] Reason: Resp Failure EXAMS: CPT CODE: [id number] XR CHEST 1 V 99290 HISTORY: Pneumonia. COMPARISON: September 30, 2017. Right central line and tracheostomy tube are unchanged. Patchy left lung infiltrate appears improved. Dependent changes. Cardiomegaly. IMPRESSION: Patchy left lung infiltrate is unchanged. at 0720 Reported and signed by: Clem Grissom M.D. CC: Mark Anthony Kerns MD; Ilan tSein Technologist: JERAMIE LOPEZ, RT(R); Mary Harris Trnscrd Date/Time/By: 10/02/2017 (0721) : By: [email or web address] Orig Print D/T: S: 0 10/02/2017 (7114) PAGE 1 Signed Re port - XR CHEST 1 [id number] 07:53:00 FAX: Ilan Holt MD [place]: St: [facility] FAX: Noé Nielsen MD [phone] Name: MOJGAN CUMMINGS [facility] : 1950 Age/S: 67/F [address] [facility] Unit #: [id number] Loc: [place] [address] Phys: Noé Morton MD Acct: [id number] Dis Date: Status: UNK PHONE #: [phone] Exam Date: 09/30/2017 0415 FAX #: [phone] Reason: pneumonai EXAMS: CPT CODE: [id number] XR CHEST 1 V 97603 REASON FOR EXAM: pneumonai EXAM ORDER DATE: 09/30/2017 6:00 AM Ordering Crispin: Noé Morton MD PROCEDURE: - XR CHEST 1 V COMPARISON: 09/28/2017 FINDINGS: Portable AP frontal view of the chest obtained at 4:20 AM shows the heart size is minimally enlarged. Pulmonary vasculatures are minimally congested. Stable appearance of a right IJ triple-lumen central line. IMPRESSION: Congestive heart failure with small bilateral pleural effusions. Interval placement of tracheostomy tube with the tip in the expected position and location. at 0753 Reported and signed by: Brayan Toro M.D. CC: Ilan Stein; Noé Morton MD Technologist: OCTAVIO Darling Trnscrd Date/Time/By: 09/30/2017 (0753) : By: GordoL Orig Print D/T: S: 09/30/2017 (0756) PAGE 1 Signed Report - XR CHEST 1 [id number] 07:53:00 FAX: Ilan Holt MD [place]: St: [facility] FAX: Noé Nielsen MD [phone] Name: MOJGAN CUMMINGS [facility] : 1950 Age/S: 67/F [address] [facility] Unit #: [id number] Loc: [place] [address] Phys: Noé Morton MD Acct: [id number] Dis Date: Status: UNK PHONE #: [phone] Exam Date: 09/30/2017 0415 FAX #: [phone] Reason: pneumonai EXAMS: CPT CODE: [id number] XR CHEST 1 V 49646 REASON FOR EXAM: pneumonai EXAM ORDER DATE: 09/30/2017 6:00 AM Ordering Crispin: Noé Morton MD PROCEDURE: - XR CHEST 1 V COMPARISON: 09/28/2017 FINDINGS: Portable AP frontal view of the chest obtained at 4:20 AM shows the heart size is minimally enlarged. Pulmonary vasculatures are minimally congested. Stable appearance of a right IJ triple-lumen central line. IMPRESSION: Congestive heart failure with small bilateral pleural effusions. Interval placement of tracheostomy tube with the tip in the expected position and location. at 0753 Reported and signed by: Brayan Toro M.D. CC: Ilan Stein; Noé Morton MD Technologist: OCTAVIO Darling Trnscrd Date/Time/By: 09/30/2017 (0753) : By: Rodrigo Orig Print D/T: S: 09/30/2017 (0756) PAGE 1 Signed Report - XR CHEST 1 [id number] 06:58:00 FAX: Ilan Holt MD [place]: St: [facility] FAX: Melinda Burns MD Name: MOJGAN CUMMINGS [facility] : 1950 Age/S: 67/F [address] [facility] Unit #: [id number] Loc: [place] [address] Phys: Melinda Burns MD Acct: [id number] Dis Date: Status: UNK PHONE #: [phone] Exam Date: 09/28/2017 0557 FAX #: [phone] Reason: sob/ acute resp failure EXAMS: CPT CODE: [id number] XR CHEST 1 V 14547 REASON FOR EXAM: sob/ acute resp failure EXAM ORDER DATE: 09/28/2017 5:00 AM Ordering Crispin: Melinda Burns MD PROCEDURE: - XR CHEST 1 V COMPARISON: 09/27/2017 FINDINGS: Portable AP frontal view of the chest obtained at 5:33 AM shows the heart size is minimally enlarged. Pulmonary vasculatures are minimally congested. Stable appearance of the right IJ central line and ET tube. IMPRESSION: Congestive heart failure with small bilat eral pleural effusions. at 0658 Reported and signed by: Brayan Toro M.D. CC: Ilan Stein; Melinda Burns MD Technologist: OCTAVIO Macedo Date/Time/By: 09/28/2017 (0658) : By: Rodrigo Orig Print D/T: S: 09/28/2017 (0702) PAGE 1 Signed R eport - XR CHEST 1 [id number] 06:58:00 FAX: Ilan Holt MD [place]: St: [facility] FAX: Melinda Burns MD Name: MOJGAN CUMMINGS [facility] : 1950 Age/S: 67/F [address] [facility] Unit #: [id number] Loc: [place] [address] Phys: Melinda Burns MD Acct: [id number] Dis Date: Status: UNK PHONE #: [phone] Exam Date: 09/28/2017 05 FAX #: [phone] Reason: sob/ acute resp failure EXAMS: CPT CODE: [id number] XR CHEST 1 V 31390 REASON FOR EXAM: sob/ acute resp failure EXAM ORDER DATE: 09/28/2017 5:00 AM Ordering Crispin: Melinda Burns MD PROCEDURE: - XR CHEST 1 V COMPARISON: 09/27/2017 FINDINGS: Portable AP frontal view of the chest obtained at 5:33 AM shows the heart size is minimally enlarged. Pulmonary vasculatures are minimally congested. Stable appearance of the right IJ central line and ET tube. IMPRESSION: Congestive heart failure with small bilat eral pleural effusions. at 0658 Reported and signed by: Brayan Toro M.D. CC: Ilan Stein; Melinda Burns MD Technologist: OCTAVIO Macedo Date/Time/By: 09/28/2017 (0658) : By: HarryVTL Orig Print D/T: S: 09/28/2017 (4784) PAGE 1 Signed R eport - XR CHEST 1 [id number] 17:34:00 FAX: Nigel Smith [place]: St: [facility] FAX: Ilan Holt MD Name: MOJGAN CUMMINGS [facility] : 1950 Age/S: 67/F [address] [facility] Unit #: [id number] Loc: [place] [address] Phys: Nigel Jones MD Acct: [id number] Dis Date: Status: [facility] PHONE #: [phone] Exam Date: 09/27/2017 1710 FAX #: [phone] Reason: INITIAL ET TUBE PLACEMENT EXAMS: CPT CODE: [id number] XR CHEST 1 V 10083 HISTORY: ET tube placement. COMPARISON: Same day. ET tube is above the marlyn. Right jugular central line with the tip projected over the SVC. NG tube is not seen. Mild congestion with small basal effusions. Cardiomegaly. IMPRESSION: ET tube is above the marlyn. Mild congestion. at 7063 Reported and signed by: Clem Grissom M.D. CC: Nigel Jones MD; Ilan Stein Technologist: Misty florentino RT(R) Trnscrd Date/Time/By: 09/27/2017 ( 1737) : By: [email or web address] Orig Print D/T: S: 09/27/2017 (4814) PAGE 1 Signed Report - XR CHEST 1 [id number] 17:34:00 FAX: Nigel Smith [place]: [facility]: [facility] FAX: Ilan Holt MD Name: MOJGAN CUMMINGS [facility] : 1950 Age/S: 67/F [address] [facility] Unit #: [id number] Loc: [facility] [place] [address] Phys: Nigel Jones MD Acct: [id number] Dis Date: Status: UNK PHONE #: [phone] Exam Date: 09/27/2017 1710 FAX #: [phone] Reason: INITIAL ET TUBE PLACEMENT EXAMS: CPT CODE: [id number] XR CHEST 1 V 71537 HISTORY: ET tube placement. COMPARISON: Same day. ET tube is above the marlyn. Right jugular central line with the tip projected over the SVC. NG tube is not seen. Mild congestion with small basal effusions. Cardiomegaly. IMPRESSION: ET tube is above the marlyn. Mild congestion. at 5725 Reported and signed by: Clem Grissom M.D. CC: Nigel Jones MD; Ilan Stein Technologist: Misty ALEXANDRA(R) Trnscrd Date/Time/By: 09/27/2017 (7105) : By: [email or web address] Orig Print D/T: S: 09/27/2017 (0397) PAGE 1 Signed Report - XR CHEST 1 V 2017-09-27 07:51:00 FAX: Mark Anthony Parker MD [phone] [place]: [facility]: [facility] FAX: Ilan Holt MD Name: MOJGAN CUMMINGS [facility] : 1950 Age/S: 67/F [address] Unit #: [id number] Loc: [place] [address] Phys: Mark Anthony Kerns MD Acct: [id number] Dis Date: Status: UNK PHONE #: [phone] Exam Date: 09/27/2017 0533 FAX #: [phone] Reason: Resp Failure EXAMS: CPT CODE: [id number] XR CHEST 1 V 50121 REASON FOR EXAM: Resp Failure EXAM ORDER DATE: 09/27/2017 6:00 AM Ordering MLatrell: Mark Anthony Kerns MD PROCEDURE: - XR CHEST 1 V COMPARISON: 09/26/2017 FINDINGS: Portable AP frontal view of the chest obtained at 5:35 AM shows the heart size is minimally enlarged. Pulmonary vasculatures are minimally congested. Stable appearance of the right IJ central line, ET tube, and NG tube. IMPRESSION: Congestive heart failure with pulmonary edema and small bilateral pleural effusions. at 0751 Reported and signed by: Brayan Toro M.D. CC: Mark Anthony Kerns MD; Ilan Stein Technologist: OCTAVIO Darling Trnwyrd Date/Time/By: 09/27/2017 (0751) : By: GordoL Orig Print D/T: S: 09/27/2017 (0754) PAGE 1 Signed Report - XR CHEST 1 [id number] 07:51:00 FAX: Mark Anthony Parker MD [phone] [place]: St: [facility] FAX: Ilan Holt MD Name: MOJGAN CUMMINGS [facility] : 1950 Age/S: 67/F [address] Unit #: [id number] Loc: [place] [address] Phys: Mark Anthony Kerns MD Acct: [id number] Dis Date: Status: UNK PHONE #: [phone] Exam Date: 09/27/2017 0533 FAX #: [phone] Reason: Resp Failure EXAMS: CPT CODE: [id number] XR CHEST 1 V 22973 REASON FOR EXAM: Resp Failure EXAM ORDER DATE: 09/27/2017 6:00 AM Ordering M.D.: Mark Anthony Kerns MD PROCEDURE: - XR CHEST 1 V COMPARISON: 09/26/2017 FI NDINGS: Portable AP frontal view of the chest obtained at 5:35 AM shows t he heart size is minimally enlarged. Pulmonary vasculatures are minimally congested. Stable appearance of the right IJ central line, ET tube, and N G tube. IMPRESSION: Congestive heart failure with pulmonary jeanne ma and small bilateral pleural effusions. Electronically Sig julian by Crispin Toro on 09/27/2017 at 0751 Reported and s igned by: Brayan Toro M.D. CC: Mark Anthony Kerns MD; Brayden Stein Technologist: OCTAVIO VASQUEZ JR; Abigail Darling Trnscrd Date/Time/By: 09/27/2017 (0751) : By: GordoL O rig Print D/T: S: 09/27/2017 (0754) PAGE 1 Signed Report - XR CHEST 1 [id number] 07:46:00 FAX: Ilan Holt MD [place]: St: [facility] FAX: Melinda Burns MD Name: MOJGAN CUMMINGS [facility] : 1950 Age/S: 67/F [place] Unit #: [id number] Loc: [place] [address] Phys: Melinda Burns MD Acct: [id number] Dis Date: Status: UNK PHONE #: [phone] Exam Date: 09/26/2017 0538 FAX #: [phone] Reason: sob/ acute resp failure EXAMS: CPT CODE: [id number] XR CHEST 1 V 88164 REASON FOR EXAM: sob/ acute resp failure EXAM ORDER DATE: 09/26/2017 5:00 AM Ordering MFayeDFaye: Melinda Burns MD PROCEDURE: - XR CHEST 1 V COMPARISON: 09/25/2017 FINDINGS: Portable AP frontal view of the chest obtained at 5:40 AM shows the heart size is minimally enlarged. Pulmonary vasculatures are minimally congested. Stable appearance of the right IJ central line, ET tube, and NG tube. IMPRESSION: Congestive heart failure with pulmonary edema and small bilateral effusions. at 0746 Reported and signed by: Brayan Toro M.D. CC: Ilan Stein; Melinda Burns MD Technologist: OCTAVIO Darling Trnscrd Date/Time/By: 09/26/2017 (0746) : By: [email or web address] Orig Print D/T: S: 09/26/2017 (0749) PAGE 1 Signed Report - XR CHEST 1 [id number] 07:46:00 FAX: Ilan Holt MD [place]: St: [facility] FAX: Melinda Burns MD Name: MOJGAN CUMMINGS [facility] : 1950 Age/S: 67/F [address] Unit #: [id number] Loc: [place] [address] Phys: Melinda Burns MD Acct: [id number] Dis Date: Status: UNK PHONE #: [phone] Exam Date: 09/26/2017 0538 FAX #: [phone] Reason: sob/ acute resp failure EXAMS: CPT CODE: [id number] XR CHEST 1 V 37493 REASON FOR EXAM: sob/ acute resp failure EXAM ORDER DATE: 09/26/2017 5:00 AM Ordering MLatrell: Melinda Burns MD PROCEDURE: - XR CHEST 1 V COMPARISON: 09/25/2017 FINDINGS: Portable AP frontal view of the chest obtained at 5:40 AM shows the heart size is minimally enlarged. Pulmonary vasculatures are minimally congested. Stable appearance of the right IJ central line, ET tube, and NG tube. IMPRESSION: Congestive heart failure with pulmonary edema and small bilateral effusions. at 0765 Reported and signed by: Brayan Toro M.D. CC: Ilan Stein; Melinda Burns MD Technologist: OCTAVIO Darling Trnscrd Date/Time/By: 09/26/2017 (0746) : By: [email or web address] Orig Print D/T: S: 09/26/2017 (0749) PAGE 1 Signed Report - XR CHEST 1 [id number] 07:17:00 FAX: Ilan Holt MD [place]: St: [facility] FAX: Melinda Burns MD Name: MOJGAN CUMMINGS [facility] : 1950 Age/S: 67/F [address] Unit #: [id number] Loc: [place] [address] Phys: Melinda Burns MD Acct: [id number] Dis Date: Status: UNK PHONE #: [phone] Exam Date: 09/25/2017522 FAX #: [phone] Reason: sob/ acute resp failure EXAMS: CPT CODE: [id number] XR CHEST 1 V 42775 CLINICAL HISTORY: Shortness of breath; acute resp failure TECHNIQUE: AP chest x-ray COMPARISON: Previous day. IMPRESSION: Worsening airspace consolidation and pleural effusions. Cardiomegaly with pulmonary congestion. ET tube, NG tube, and right central venous catheter. at 0717 Reported and signed by: Lenka Farrar D.O. CC: Ilan Stein; Melinda Burns MD Technologist: JUNAID BRAY, (R); Mary Harris Trnscrd Date/Time/By: 09/25/2017 (07) : By: [email or web address] Orig Print D/T: S: 09/25/2017 (07) PAGE 1 Signed Report - XR CHEST 1 [id number] 07:17:00 FAX: Ilan Holt MD [place]: St: [facility] FAX: Melinda Burns MD Name: MOJAGN CUMMINGS [facility] : 1950 Age/S: 67/F [address] Unit #: [id number] Loc: [place] [address] Phys: Melinda Burns MD Acct: [id number] Dis Date: Status: UNFritter PHONE #: [phone] Exam Date: 09/25/2017522 FAX #: [phone] Reason: sob/ acute resp failure EXAMS: CPT CODE: [id number] XR CHEST 1 V 12160 CLINICAL HISTORY: Shortness of breath; acute resp failure TECHNIQUE: AP chest x-ray COMPARISON: Previous day. IMPRESSION: Worsening airspace consolidation and pleural effusions. Cardiomegaly with pulmonary congestion. ET tube, NG tube, and right central venous catheter. at 0717 Reported and signed by: Lenka Farrar D.O. CC: Ilan Stein; Melinda Burns MD Technologist: RT CISCO(R); Mary Harris Trnscrd Date/Time/By: 09/25/2017 (07) : By: [email or web address] Orig Print D/T: S: 09/25/2017 (4301) PAGE 1 Signed Report - XR CHEST 1 [id number] 08:12:00 FAX: Ilan Holt MD [place]: St: [facility] FAX: Melinda Burns MD Name: MOJGAN CUMMINGS [facility] : 1950 Age/S: 67/F [address] [facility] Unit #: [id number] Loc: [place] [address] Phys: Melinda Burns MD Acct: [id number] Dis Date: Status: UNK PHONE #: [phone] Exam Date: 09/24/2017525 FAX #: [phone] Reason: sob/ acute resp failure EXAMS: CPT CODE: [id number] XR CHEST 1 V 27158 REASON FOR EXAM: sob/ acute resp failure EXAM ORDER DATE: 09/24/2017 5:00 AM Ordering Crispin: Melinda Burns MD PROCEDURE: - XR CHEST 1 V COMPARISON: 09/23/2017 FINDINGS: Portable AP frontal view of the chest obtained at 5:01 AM shows the heart size is minimally enlarged. Pulmonary vasculatures are minimally congested. Stable appearance of the right IJ central line, ET tube, and OG tube. IMPRESSION: Persistent congestive heart failure with small bilateral pleural effusions. at 0812 Reported and signed by: Brayan Toro M.D. CC: Ilan Stein; Melinda Burns MD Technologist: JUNAID BRAY RT(R); Mary Harris Trnscrd Date/Time/By: 09/24/2017 (811) : By: [email or web address] Orig Print D/T: S: 09/24/2017 (16) PAGE 1 Signed Report - XR CHEST 1 [id number] 08:12:00 FAX: Ilan Holt MD [place]: St: [facility] FAX: Melinda Burns MD Name: MOJGAN CUMMINGS [facility] : 1950 Age/S: 67/F [address] [facility] Unit #: [id number] Loc: [place] [address] Phys: Melinda Burns MD Acct: [id number] Dis Date: Status: UNK PHONE #: [phone] Exam Date: 09/24/2017525 FAX #: [phone] Reason: sob/ acute resp failure EXAMS: CPT CODE: [id number] XR CHEST 1 V 80064 REASON FOR EXAM: sob/ acute resp failure EXAM ORDER DATE: 09/24/2017 5:00 AM Ordering Crispin: Melinda Burns MD PROCEDURE: - XR CHEST 1 V COMPARISON: 09/23/2017 FINDINGS: Portable AP frontal view of the chest obtained at 5:01 AM shows the heart size is minimally enlarged. Pulmonary vasculatures are minimally congested. Stable appearance of the right IJ central line, ET tube, and OG tube. IMPRESSION: Persistent congestive heart fail ure with small bilateral pleural effusions. Electronically S igned by Crispin Toro on 09/24/2017 at 0812 Reported and signed by: Brayan Toro M.D. CC: Ilan Stein; Melinda Burns MD Technologist: JUNAID BRAY, RT(R); Mary Harris Trnscrd Date/Time/By: 09/24/2017 (811) : By: GordoL Orig Print D/T: S: 09/24/2017 (16) PAGE 1 Signed Report - XR CHEST 1 [id number] 11:26:00 FAX: Ilan Holt MD [place]: St: [facility] FAX: Melinda Burns MD Name: MOJGAN CUMMINGS [facility] : 1950 Age/S: 67/F [address] [facility] Unit #: [id number] Loc: [place] [address] Phys: Melinda Burns MD Acct: [id number] Dis Date: Status: UNK PHONE #: [phone] Exam Date: 09/23/2017 1105 FAX #: [phone] Reason: sob/ acute resp failure EXAMS: CPT CODE: [id number] XR CHEST 1 V 04241 HISTORY: Shortness of breath and respiratory failure. COMPARISON: September 22, 2017. The line and tubes are unchanged. Dense worsening right lung infiltrate and patchy left lower lobe infiltrate with small bibasal effusions and subsegmental atelectasis. Cardiomegaly. IMPRESSION: Worsening bilateral infiltrates, greater on the right. at 1126 Reported and signed by: Clem Grissom M.D. CC: Ilan Stein; Melinda Burns MD Technologist: RT ALEE(R) Trnscrd Date/Time/By: 09/23/2017 (1126) : By: [email or web address] Orig Print D/T: S: 09/26/2017 (7658) PAGE 1 Signed Report - XR CHEST 1 [id number] 11:26:00 FAX: Ilan Holt MD [place]: St: [facility] FAX: Melinda Burns MD Name: MOJGAN CUMMINGS [facility] : 1950 Age/S: 67/F [address] [facility] Unit #: [id number] Loc: [place] [address] Phys: Melinda Burns MD Acct: [id number] Dis Date: Status: UNK PHONE #: [phone] Exam Date: 09/23/2017 1105 FAX #: [phone] Reason: sob/ acute resp failure EXAMS: CPT CODE: [id number] XR CHEST 1 V 92851 HISTORY: Shortness of breath and respiratory failure. COMPARISON: September 22, 2017. The line and tubes are unchanged. Dense worsening right lung infiltrate and patchy left lower lobe infiltrate with small bibasal effusions and subsegmental atelectasis. Cardiomegaly. IMPRESSION: Worsening bilateral infiltrates, greater on the right. at 1126 Reported and signed b y: Clem Grissom M.D. CC: Ilan Stein; Melinda Burns Technologist: RT ALEE(R) Trnscrd Date/Time/By: 09/23/2017 (1126) : By: [email or web address] Orig Print D/T: S: 09/26/2017 (1051) PAGE 1 Signed Report - XR CHEST 1 [id number] 12:05:00 FAX: Ilan Holt MD [place]: B St: UNK FAX: Melinda Burns MD Name: MOJGAN CUMMINGS [facility] : 1950 Age/S: 67/F [address] [facility] Unit #: [id number] Loc: [place] [address] Phys: Melinda Burns MD Acct: [id number] Dis Date: Status: UNK PHONE #: [phone] Exam Date: 09/22/2017 1206 FAX #: [phone] Reason: sob/ s/p intubation EXAMS: CPT CODE: [id number] XR CHEST 1 V 91003 HISTORY: Shortness of breath and postintubation. COMPARISON: Previous day. The line and tubes are in good position. Dense bilateral alveolar infiltrates are unchanged. Small bilateral pleural effusions with subsegmental atelectasis. Cardiomegaly. Diffuse dense bilateral alveolar infiltrates with small effusions are unchanged. ET tube is above the marlyn. at 1205 Reported and signed by: Clem Grissom M.D. CC: Ilan Stein; Melinda Burns MD Technologist: JERAMIE LOPEZ RT(R) Trnscrd Date/Time/By: 09/22/2017 (3020) : By: [email or web address] Orig Print D/T: S: 09/22/2017 (8434) PAGE 1 Signed Report - XR CHEST 1 [id number] 12:05:00 FAX: Ilan Holt MD [place]: B St: UNK FAX: Melinda Burns MD Name: MOJGAN CUMMINGS [facility] : 1950 Age/S: 67/F [address] [facility] Unit #: [id number] Loc: [place] [address] Phys: Melinda Burns MD Acct: [id number] Dis Date: Status: UNK PHONE #: [phone] Exam Date: 09/22/2017 1206 FAX #: [phone] Reason: sob/ s/p intubation EXAMS: CPT CODE: [id number] XR CHEST 1 V 55434 HISTORY: Shortness of breath and postintubation. COMPARISON: Previous day. The line and tubes are in good position. Dense bilateral alveolar infiltrates are unchanged. Small bilateral pleural effusions with subsegmental atelectasis. Cardiomegaly. Diffuse dense bilateral alveolar infiltrates with small effusions are unchanged. ET tube is above the marlyn. at 1200 Reported and signed by: Clem Grissom M.D. CC: Ilan Stein; Melinda Burns MD Technologist: JERAMIE LOPEZ RT(R) Trnscrd Date/Time/By: 09/22/2017 (1408) : By: [email or web address] Orig Print D/T: S: 09/22/2017 (1298) PAGE 1 Signed Report - XR CHEST 1 [id number] 07:33:00 FAX: Ilan Holt MD [place]: B St: [facility] FAX: Melinda Burns MD Name: MOJGAN CUMMINGS [facility] : 1950 Age/S: 67/F [place] Unit #: [id number] Loc: [place] [address] Phys: Melinda Burns MD Acct: [id number] Dis Date: Status: UNK PHONE #: [phone] Exam Date: 09/22/2017526 FAX #: [phone] Reason: sob/ acute resp failure EXAMS: CPT CODE: [id number] XR CHEST 1 V 86103 REASON FOR EXAM: sob/ acute resp failure EXAM ORDER DATE: 09/22/2017 5:00 AM Ordering MLatrell: Melinda Burns MD PROCEDURE: - XR CHEST 1 V COMPARISON: 09/21/2017 FINDINGS: Portable AP frontal view of the chest obtained at 5:29 AM shows the heart size is mildly enlarged. Pulmonary vasculatures are mildly congested. Stable appearance of the right IJ central line, ET tube, and NG tube. IMPRESSION: Persistent congestive heart failure with dense pulmonary edema and small bilateral pleural effusions. at 0733 Reported and signed by: Brayan Toro M.D. CC: Ilan Stein; Melinda Burns MD Technologist: OCTAVIO Darling Trnscrd Date/Time/By: 09/22/2017 (0733) : By: [email or web address] Orig Print D/T: S: 09/22/2017 (0736) PAGE 1 Signed Report - XR CHEST 1 [id number] 07:33:00 FAX: Ilan Holt MD [place]: St: [facility] FAX: Melinda Burns MD Name: MOJGAN CUMMINGS [facility] : 1950 Age/S: 67/F [address] Unit #: [id number] Loc: [place] [address] Phys: Melinda Burns MD Acct: [id number] Dis Date: Status: UNK PHONE #: [phone] Exam Date: 09/22/2017526 FAX #: [phone] Reason: sob/ acute resp failure EXAMS: CPT CODE: [id number] XR CHEST 1 V 98810 REASON FOR EXAM: sob/ acute resp failure EXAM ORDER DATE: 09/22/2017 5:00 AM Ordering M.D.: Melinda Burns MD PROCEDURE: - XR CHEST 1 V COMPARISON: 09/21/2017 FINDINGS: Portable AP frontal view of the chest obtained at 5:29 AM shows the heart size is mildly enlarged. Pulmonary vasculatures are mildly congested. Stable appearance of the right IJ central line, ET tube, and NG tube. IMPRESSION: Persistent congestive heart failure with dense pulmonary edema and small bilateral pleural effusions. at 0733 Reported and signed by: Brayan Toro M.D. CC: Ilan Stein; Melinda Burns MD Technologist: OCTAVIO Darling Trnscrd Date/Time/By: 09/22/2017 (0733) : By: [email or web address] Orig Print D/T: S: 09/22/2017 (0736) PAGE 1 Signed Report - XR CHEST 1 [id number] 06:00:00 FAX: Mark Anthony Parker MD [phone] [place]: St: [facility] FAX: Ilan Holt MD Name: MOJGAN CUMMINGS [facility] : 1950 Age/S: 67/F [address] Unit #: [id number] Loc: [place] [address] Phys: Mark Anthony Kerns MD Acct: [id number] Dis Date: Status: UNK PHONE #: [phone] Exam Date: 09/21/2017 0549 FAX #: [phone] Reason: REsp failure EXAMS: CPT CODE: [id number] XR CHEST 1 V 61912 HISTORY: Respiratory failure Location: C3 COMPARISON:09/20/2017 FINDINGS: Endotracheal tube and nasogastric tube as well as right IJ central line are again demonstrated. There is cardiomegaly with vascular congestion and perihilar edema. Small bilateral pleural effusions are present. No pneumothorax. No other changes compared to prior study. IMPRESSION: 1. Tubes and lines are stable. There is continued findings of CHF/volume overload with perihilar opacity compatible with edema and/or consolidation. 18 at 0600 Reported and signed by: Misty Vizcarra MD CC: Mark Anthony Kerns MD; Ilan Stein Techn ologist: OCTAVIO Darling Trnscrd Date/Alcon e/By: 09/21/2017 (0600) : By: [email or web address] Orig Print D/T: S: 09/21/2017 (0603) PAGE 1 Signed Report - XR CHEST 1 [id number] 06:00:00 FAX: Mark Anthony Parker MD [phone] [place]: St: [facility] FAX: Ilan Holt MD Name: MOJGAN CUMMINGS [facility] : 1950 Age/S: 67/F [address] Unit #: [id number] Loc: [place] [address] Phys: Mark Anthony Kerns MD Acct: [id number] Dis Date: Status: UNK PHONE #: [phone] Exam Date: 09/21/2017 0549 FAX #: [phone] Reason: REsp failure EXAMS: CPT CODE: [id number] XR CHEST 1 V 70142 HISTORY: Respiratory failure Location: C3 C OMPARISON:09/20/2017 FINDINGS: Endotracheal tube and n asogastric tube as well as right IJ central line are again demonstrated. There is cardiomegaly with vascular congestion and perihilar edema. Small bilateral pleural effusions are present. No pneumothorax. No other changes compared to prior study. IMPRESSION: 1. Tubes and lines are stable. There is continued findings of CHF/volume overload with perihilar opacity compatible with edema and/or consolidation. 18 at 0600 Reported and signed by: Misty Vizcarra MD CC: Mark Anthony Kerns MD; Ilan Stein Techn ologist: OCTAVIO Darling Trnwyrd Date/Alcon e/By: 09/21/2017 (06) : By: [email or web address] Orig Print D/T: S: 09/21/2017 (0603) PAGE 1 Signed Report - CT CHEST W/O [id number] 16:00:00 Name: MOJGAN CUMMINGS [facility] : 1950 Age/S: 67 / F [address] [facility] Unit #: [id number] Loc: [place] [address] Phys: David Burns MD Acct: [id number] Di s Date: Status: UNK PHONE #: Exam Date: 09/20/2017 1548 FAX #: Reason: SOB/ ACUTE RESP FAILURE EXAMS: CPT CODE: [id number] CT CHEST W/O CONTRAST 96997 HISTORY: Shortness of jerome ath; ACUTE RESP FAILURE TECHNIQUE: [address] images were obt ained through the chest without contrast. Automated exposure control for d ose reduction. COMPARISON: Chest x-ray from earlier today FINDINGS: Posterior bilateral upper lobe and superoposteri or bilateral lower lobe consolidation. Small right and trace left pleural effusion. Central airways are patent. ET tube positioned above the marlyn. Cardiomegaly. No pericardial effusion. Thoracic aorta and pulmona ry arteries are normal caliber. Mildly enlarged paratracheal nodes. Small prevascular and AP window nodes. Visualized thyroid and esop hagus are grossly unremarkable. Enlarged cirrhotic liver. Orogastr ic tube positioned within the stomach. Degenerative changes of the spine a nd shoulders. IMPRESSION: Posterior b ilateral upper lobe and superoposterior bilateral lower lobe consolidati on. Small right and trace left pleural effusion. at 1600 Reported and signed by: Lenka Farrar D.O. CC: Ilan Stein; Melinda Engel MD Technologist:Dmitri Cortes RT(R),(MR),(CT); CTDI: DLP: Trnscb Date/Time: 09/20/2017 (1600) [email or web address] Orig Print D/T: S: 09/20/2017 (0360) PAGE 1 Signed Report - CT CHEST W/O CONTRAST 2017-09-20 16:00:00 Name: MOJGAN CUMMINGS [facility] : 1950 Age/S: 67 / F [address] [facility] Unit #: [id number] Loc: [place] [address] Phys: Melinda Burns MD Acct: [id number] Dis Date: Status: UNK PHONE #: [phone] Exam Date: 09/20/2017 1545 FAX #: [phone] Reason: SOB/ ACUTE RESP FAILURE EXAMS: CPT CODE: [id number] CT CHEST W/O CONTRAST 92139 HISTORY: Shortness of breath; ACUTE RESP FAILURE TECHNIQUE: [address] images were obtained through the chest without contrast. Automated exposure control for dose reduction. COMPARISON: Chest x-ray from earlier today FINDINGS: Posterior bilateral upper lobe and superoposterior bilateral lower lobe consolidation. Small right and trace left pleural effusion. Central airways are patent. ET tube positioned above the marlyn. Cardiomegaly. No pericardial effusion. Thoracic aorta and pulmonary arteries are normal caliber. Mildly enlarged paratracheal nodes. Small prevascular and AP window nodes. Visualized thyroid and esophagus are grossly unremarkable. Enlarged cirrhotic liver. Orogastric tube positioned within the stomach. Degenerative changes of the spine and shoulders. IMPRESSION: Posterior b ilateral upper lobe and superoposterior bilateral lower lobe consolidati on. Small right and trace left pleural effusion. at 1600 Reported and signed by: Lenka Farrar D.O. CC: Ilan Stein; Melinda Engel MD Technologist:Dmitri Cortes RT(R),(MR),(CT); CTDI: DLP: Trnscb Date/Time: 09/20/2017 (1600) [email or web address] Orig Print D/T: S: 09/20/2017 (6085) PAGE 1 Signed Report - CT HEAD/BRAIN W/O CONT 2017-09-20 15:52:00 Name: MOJGAN CUMMINGS [facility] : 1950 Age/S: 67 / F [address] [facility] Unit #: [id number] Loc: [facility] [place] [address] Phys: Ialn Stein MD Acct: [id number] Dis Date: Status: UNK PHONE #: [phone] Exam Date: 09/20/2017 1548 FAX #: [phone] Reason: AMS EXAMS: CPT CODE: [id number] CT HEAD/BRAIN W/O CONT 64305 HISTORY: Altered mental status TECHNIQUE: Noncontrast 2.[address] of the head. Examination acquired within 24 hours of arrival. Automated exposure control for dose reduction. COMPARISON: 08/11/16 FINDINGS: No acute hemorrhage. No intracranial mass, mass effect, or midline shift. No CT evidence of acute infarct. Zimmerman-white matter differentiation is preserved. No hydrocephalus. Mild parenchymal atrophy. Atherosclerotic vascular calcification of the carotid siphons. No extra-axial fluid collection. Diffuse paranasal sinus mucosal thickening and fluid. Partial opacification of the bilateral mastoid air cells and middle ear cavities. Orbital contents are unremarkable. Calvarium and skull base are intact. ET and orogastric tubes. IMPRESSION: No acute intracranial process. No mass or mass effect. Diffuse paranasal sinus disease. Partial opacification of the bilateral mastoid and middle ear. Findings may be related to intubated status. Correlate clinically to exclude infectious process. at 1552 Reported and signed by: Lenka Farrar D.O. CC: Ilan Stein Technologist:Dmitri Cortes RT(R),(MR),(CT); CTDI: DLP: Trnscb Date/Time: 09/20/2017 (6022) [email or web address] Orig Print D/T: S: 09/20/2017 (4599) PAGE 1 Signed Report - CT HEAD/BRAIN W/O [id number] 15:52:00 Name: MOJGAN CUMMIGNS [facility] : 1950 Age/S: 67 / F [address] [facility] Unit #: [id number] Loc: [place] [address] Phys: Brayden Stein MD Acct: [id number] Di s Date: Status: UNK PHONE #: Exam Date: 09/20/2017 1548 FAX #: Reason: AMS EXAMS: CPT CODE: [id number] CT HEAD/BRAIN W/O CONT 72632 HISTORY: Altered mental status TECHNIQUE: Noncontrast 2.[address] of the head. Examina tion acquired within 24 hours of arrival. Automated exposure control for dose reduction. COMPARISON: 08/11/16 FINDINGS: No acute hemorrhage. No intracranial mass, mass effect, or midline shift. No CT evidence of acute infarct. Zimmerman-white matter different iation is preserved. No hydrocephalus. Mild parenchymal atrophy. Atheroscl erotic vascular calcification of the carotid siphons. No extra-axial fluid collection. Diffuse paranasal sinus mucosal thickening and fluid. Partial opacification of the bilateral mastoid air cells and middle ear cavities. Orbital contents are unremarkable. Calvarium and skull base are intact. ET and orogastric tubes. IMPRESSION: No acute intracranial process. No mass or mass effect. Diffuse paranasal sinus disease. Partial opacification of the bila teral mastoid and middle ear. Findings may be related to intubated statu s. Correlate clinically to exclude infectious process. Electronicall y Signed by Lenka Farrar D.O. on 09/20/2017 at 1552 Reporte d and signed by: Lenka Farrar D.O. CC: Ilan Stein Technologist:Dmitri Cortes(R),(MR),(CT); CTDI: D LP: Trnscb Date/Time: 09/20/2017 (0778) [email or web address] Orig Print D/T: S: 09/20/2017 (7436) PAGE 1 Signed R eport - XR CHEST 1 [id number] 05:55:00 FAX: Mark Anthony Parker MD [phone] [place]: St: [facility] FAX: Ilan Holt MD Name: MOJGAN CUMMINGS [facility] : 1950 Age/S: 67/F [address] [facility] Unit #: [id number] Loc: [place] [address] Phys: Mark Anthony Kerns MD Acct: [id number] Dis Date: Status: UNK PHONE #: [phone] Exam Date: 09/20/2017522 FAX #: [phone] Reason: REsp Failure EXAMS: CPT CODE: [id number] XR CHEST 1 V 76035 HISTORY: Respiratory failure Location: C3 C OMPARISON:09/19/2017 FINDINGS: Endotracheal tube and n asogastric tube as well as right IJ central line are again demonstrated. There is cardiomegaly with vascular congestion and perihilar edema. No pneumothorax. No other changes. IMPRESSION: 1. Vascular congestion and perihilar edema similar to prior study. at 8182 Reported and signed by: Misty Vizcarra MD CC: Mark Anthony Kerns MD; Ilan Stein Technologist: OCTAVIO VASQUEZ JR Trnscrd Date/Time/By: 018 (0555) : By: [email or web address] Orig Print D/T: S: 09/20/2017 (6482) PAGE 1 Signed Report - XR CHEST 1 [id number] 05:55:00 FAX: Mark Anthony Parker MD [phone] [place]: St: [facility] FAX: Ilan Holt MD Name: MOJGAN CUMMINGS [facility] : 1950 Age/S: 67/F [address] [facility] Unit #: [id number] Loc: [place] [address] Phys: Mark Anthony Kerns MD Acct: [id number] Dis Date: Status: UNK PHONE #: [phone] Exam Date: 09/20/2017522 FAX #: [phone] Reason: REsp Failure EXAMS: CPT CODE: [id number] XR CHEST 1 V 22702 HISTORY: Respiratory failure Location: C3 C OMPARISON:09/19/2017 FINDINGS: Endotracheal tube and n asogastric tube as well as right IJ central line are again demonstrated. There is cardiomegaly with vascular congestion and perihilar edema. No pneumothorax. No other changes. IMPRESSION: 1. Vascular congestion and perihilar edema similar to prior study. at 0555 Reported and signed by: Misty Vizcarra MD CC: Mark Anthony Kerns MD; Ilan Stein Technologist: OCATVIO VASQUEZ JR Trnscrd Date/Time/By: 018 (0555) : By: [email or web address] Orig Print D/T: S: 09/20/2017 (6942) PAGE 1 Signed Report - XR CHEST 1 [id number] 09:04:00 FAX: Ilan Holt MD [place]: St: [facility] FAX: Melinda Burns MD Name: MOJGAN CUMMINGS [facility] : 1950 Age/S: 67/F [address] [facility] Unit #: [id number] Loc: [place] [address] Phys: Melinda Burns MD Acct: [id number] Dis Date: Status: UNK PHONE #: [phone] Exam Date: 09/19/2017 0339 FAX #: [phone] Reason: sob/ acute resp failure EXAMS: CPT CODE: [id number] XR CHEST 1 V 16865 REASON FOR EXAM: sob/ acute resp failure EXAM ORDER DATE: 09/19/2017 5:00 AM Ordering Crispin: Melinda Burns MD PROCEDURE: - XR CHEST 1 V COMPARISON: 09/18/2017 FINDINGS: Portable AP frontal view of the chest obtained at 3:42 AM shows the heart size is minimally enlarged. Pulmonary vasculatures are mildly congested. Stable appearance of the ET tube, NG tube, and right IJ central line. IMPRESSION: Interval worsening of the congestive heart failure with alveolar pulmonary edema. at 0904 Reported and signed by: Brayan Toro M.D. CC: Ilan Stein; Melinda Burns MD Technologist: JERAMIE LOPEZ RT(R) Trnscrd Date/Time/By: 09/19/2017 (09) : By: Rodrigo Orig Print D/T: S: 09/19/2017 (0907) PAGE 1 Signed Report - XR CHEST 1 [id number] 09:04:00 FAX: Ilan Holt MD [place]: [facility]: UN FAX: Melinda Burns MD Name: MOJGAN CUMMINGS [facility] : 1950 Age/S: 67/F [address] Unit #: [id number] Loc: [place] [address] Phys: Melinda Burns MD Acct: [id number] Dis Date: Status: UNK PHONE #: [phone] Exam Date: 09/19/2017338 FAX #: [phone] Reason: sob/ acute resp failure EXAMS: CPT CODE: [id number] XR CHEST 1 V 66080 REASON FOR EXAM: sob/ acute resp failure EXAM ORDER DATE: 09/19/2017 5:00 AM Ordering M.[place]: Melinda Burns MD PROCEDURE: - XR CHEST 1 V COMPARISON: 09/18/2017 FINDINGS: Portable AP frontal view of the chest obtained at 3:42 AM shows the heart size is minimally enlarged. Pulmonary vasculatures are mildly congested. Stable appearance of the ET tube, NG tube, and right IJ central line. IMPRESSION: Interval worsening of the congestive heart failure with alveolar pulmonary edema. at 0904 Reported and signed by: Brayan Toro M.D. CC: Ilan Stein; Melinda Burns MD Technologist: RT ALEE(R) Trnscrd Date/Time/By: 09/19/2017 (0904) : By: GordoL Orig Print D/T: S: 09/19/2017 (07) PAGE 1 Signed Report - XR CHEST 1 [id number] 08:18:00 FAX: lIan Holt MD [place]: St: [facility] Name: MOJGAN SAUCEDO [facility] : [birth year] Age/S: 67/F [address] Unit #: [id number] Loc: [place] [address] Phys: Ilan Stein MD Acct: [id number] Dis Date: Status: UNK PHONE #: [phone] Exam Date: 09/18/2017529 FAX #: [phone] Reason: PNA/CHF EXAMS: CPT CODE: [id number] XR CHEST 1 V 76725 CLINICAL HISTORY: Pneumonia, CHF TECHNIQUE: AP chest x-ray COMPARISON: Previous day. IMPRESSION: No significant interval change. Dalia ateral perihilar airspace consolidation. Patchy bilateral interstitial o pacities. Small right pleural effusion. Cardiomegaly. ET tube, NG tube, and right central venous catheter. at 0818 Reported and signed by: Lenka Farrar D.O. CC: Ilan Stein Technologist: RT CISCO(R); Mary Zendejas Trnscrd Date/Time/By: 09/18/2017 (0818) : By: [email or web address] 1 Orig Print D/T: S: 09/18/2017 (0803) PAGE 1 Signed Report - XR CHEST 1 V 2017-09-18 08:18:00 FAX: Ilan Holt MD [place]: B St: [facility] Name: MOJGAN SAUCEDO [facility] : [birth year] Age/S: 67/F [address] Unit #: [id number] Loc: [place] [address] Phys: Ilan Stein MD Acct: [id number] Dis Date: Status: UNK PHONE #: [phone] Exam Date: 09/18/2017529 FAX #: [phone] Reason: PNA/CHF EXAMS: CPT CODE: [id number] XR CHEST 1 V 35254 CLINICAL HISTORY: Pneumonia, CHF TECHNIQUE: AP chest x-ray COMPARISON: Previous day. IMPRESSION: No significant interval change. Dalia ateral perihilar airspace consolidation. Patchy bilateral interstitial o pacities. Small right pleural effusion. Cardiomegaly. ET tube, NG tube, and right central venous catheter. at 0818 Reported and signed by: Lenka Farrar D.O. CC: Ilan Stein Technologist: JUNAID BRAY, RT(R); Mary Zendejas Trnscrd Date/Time/By: 09/18/2017 (18) : By: [email or web address] 1 Orig Print D/T: S: 09/18/2017 (0821) PAGE 1 Signed Report - XR CHEST 1 V 2017-09-17 17:47:00 FAX: Ilan Holt MD [place]: St: [facility] FAX: Melinda Burns MD Name: MOJGAN CUMMINGS [facility] : 1950 Age/S: 67/F [address] Unit #: [id number] Loc: [place] [address] Phys: Melinda Burns MD Acct: [id number] Dis Date: Status: UNK PHONE #: [phone] Exam Date: 09/17/20171735 FAX #: [phone] Reason: CENTRAL LINE PLACEMENT EXAMS: CPT CODE: [id number] XR CHEST 1 V 01954 CLINICAL HISTORY: Pneumonia; CENTRAL LINE PLACEMENT TECHNIQUE: AP chest x- ray COMPARISON: 09/07/17 IMPRESSION: Interval placement of right IJ central venous catheter with distal tip in the proximal SVC. Interval placement of ET tube 1.5 cm above the marlyn. Interval placement of NG tube which extends below the diaphragm. No pneumothorax or other significant change compared to the previous study. at 0306 Reported and signed by: Lenka Farrar D.O. CC: Ilan Stein; Melinda Burns MD Technologist: Misty ALEXANDRA(R) Trnscrd Date/Time/By: 09/17/2017 (656) : By: [email or web address] [employer] Print D/T: S: 09/17/2017 (3989) PAGE 1 Signed Report - XR CHEST 1 [id number] 17:47:00 FAX: Ilan Holt MD [place]: St: [facility] FAX: Melinda Burns MD Name: MOJGAN CUMMINGS [facility] : 1950 Age/S: 67/F [address] [facility] Unit #: [id number] Loc: [place] [address] Phys: Melinda Burns MD Acct: [id number] Dis Date: Status: UNK PHONE #: [phone] Exam Date: 09/17/20171735 FAX #: [phone] Reason: CENTRAL LINE PLACEMENT EXAMS: CPT CODE: [id number] XR CHEST 1 V 27179 CLINICAL HISTORY: Pneumonia; CENTRAL LINE PLACEMENT TECHNIQUE: AP chest x-ray COMPARISON: 09/07/17 I MPRESSION: Interval placement of right IJ central venous [address]on ter with distal tip in the proximal SVC. Interval placement of ET tube 1 .5 cm above the marlyn. Interval placement of NG tube which extends belo w the diaphragm. No pneumothorax or other significant change compared to the previous study. at 1747 Reported and signed by: Lenka Farrar D.O. CC: Ilan Stein; Melinda Burns MD Technologist: Misty Pena RT(R) Trnscrd Date/Time/By: 09/17/2017 (174) : By: [email or web address] Orig Print D/T : S: 09/17/2017 (0229) PAGE 1 Sig julian Report - CT ABD PELVIS [id number] 17:30:00 Name: MOJGAN CUMMINGS [facility] : 1950 Age/S: 67 / F [address] [facility] Unit #: [id number] Loc: [place], [place] [address] Phys: Shabbir Puentes MD Acct: [id number] Dis Date: Status: UNK PHONE #: [phone] Exam Date: 09/15/2017 1703 FAX #: [phone] Reason: ABDOM PAIN, DIARRHEA EXAMS: CPT CODE: [id number] CT ABD PELVIS W/CONT 17711 HISTORY: Abdominal pain and diarrhea. COMPARISON: CT scan from August 09, 2016. CT abdomen and pelvis with IV contrast: 100 mL of Isovue-370. All limited exposure control. CT abdomen: Lung bases demonstrating patchy infiltrates with small effusions and subsegmental atelectasis, greater on the right. The liver is enhancing homogeneously and is small and slightly lobular contour. No discrete mass. Gallbladder is without radiopaque stones. These findings could suggest early cirrhosis. No splenomegaly with homogeneous enhancement. The stomach distended incompletely. Mild wall thickening. Moderate thickening of the duodenal wall specially the 2nd through the 4th portion suggesting acute duodenitis with periduodenal inflammation. Pancreas is poorly visible but enhance homogeneously. No ductal dilatation. No inflammatory changes. Adrenals are normal. Kidneys are free from hydroureteronephrosis. Homogeneous enhancement. Excretion noted. Low-attenuation subcentimeter lesion in the left anterior interpolar region is too small to characterize. No pathologic adenopathy. Well-opacified mildly atherosclerotic vasculature. No bowel obstruction or colitis or diverticulitis or enteritis. Scattered fecal material. CT PELVIS: Appendix is not visible with certainty however no inflammatory changes. Extensive artifact from patient's massive body habitus limits evaluation. The pelvic bowel loops are unobstructed with sigmoid diverticulosis seen extensively. No diverticulitis. Patient is post hysterectomy. Unremarkable urinary bladder. No free fluid or free air or abscess. Presacral soft tissue of unclear significance. This is new from previous examination. No pathologic adenopathy. PAGE 1 Signed Report (CONTINUED) Name: MOJGAN CUMMINGS [facility] : 1950 Age/S: 67 / F [address] [facility] Unit #: [id number] Loc: [place] [address] Phys: Shabbir Puentes MD Acct: [id number] Dis Date: Status: UNK PHONE #: [phone] Exam Date: 09/15/2017 170 FAX #: [phone] Reason: ABDOM P AIN, DIARRHEA EXAMS: CPT CODE: [id number] CT ABD PELVIS W/CONT 91533 <Continued> Unremarkable subcutaneous tissues limited due to extensive artifact from patient's massive body habitus. Chronic fracture deformity of the left hip with dislocation and erosion noted again. DJD. IMPRESSION: Patchy bibasal infiltrates with small effusions. Circumferential wall thickening of the 2nd through the 4th portion of the duodenum with periduodenal inflammation consistent with acute duodenitis. Correlate clinically. No free fluid or free air or abscess. No bowel obstruction with extensive sigmoid diverticulosis. No diverticulitis. Appendix is not seen with certainty but no inflammatory changes. Presacral soft tissue of unclear significance. No hydroureteronephrosis. at 1730 Reported and signed by: Clem Grissom M.D. CC: Shabbir Puentes MD Technologist:RT CHRISTIE(R) CT CTDI: DLP: Trnscb Date/Time: 09/15/2017 (1730) [email or web address] Orig Print D/T: S: 09/15/2017 (1733) PAGE 2 Signed Report - CT ABD PELVIS W/[id number] 17:30:00 Name: MOJGAN CUMMINGS [facility] : 1950 Age/S: 67 / F [address] Unit #: [id number] Loc: [place] [address] Phys: Jayy Puentes danielle Thomas MD Acct: [id number] Di s Date: Status: UNK PHONE #: Exam Date: 09/15/2017 1703 FAX #: [phone] Reason: ABDOM PAIN, DIARRHEA EXAMS: CPT CODE: [id number] CT ABD PELVIS W/CONT 75513 HISTORY: Abdominal pain a nd diarrhea. COMPARISON: CT scan from August 09, 2016. CT abdomen and pelvis with IV contrast: 100 mL of Isovue-370. All li mited exposure control. CT abdomen: Lung bases demon strating patchy infiltrates with small effusions and subsegmental atelecta sis, greater on the right. The liver is enhancing homogeneously an d is small and slightly lobular contour. No discrete mass. Gallbladder i s without radiopaque stones. These findings could suggest early cirrhosis . No splenomegaly with homogeneous enhancement. The stomach diste nded incompletely. Mild wall thickening. Moderate thickening of the duodenal wall specially the 2nd through the 4th portion suggesting acute duodenitis with periduodenal inflammation. Pancreas is poorly vis ible but enhance homogeneously. No ductal dilatation. No inflammatory ch anges. Adrenals are normal. Kidneys are free from hydroureteronep hrosis. Homogeneous enhancement. Excretion noted. Low-attenuation subce ntimeter lesion in the left anterior interpolar region is too small to smith racterize. No pathologic adenopathy. Well-opacified mildly athero sclerotic vasculature. No bowel obstruction or colitis or di verticulitis or enteritis. Scattered fecal material. CT PEL VIS: Appendix is not visible with certainty however no inflammator y changes. Extensive artifact from patient's massive body habitus l imits evaluation. The pelvic bowel loops are unobstructed with sigmoid di verticulosis seen extensively. No diverticulitis. Patient is post hysterectomy. Unremarkable urinary bladder. No free fluid or free air or abscess. Presacral soft tissue of unclear significance. This is new from previous examination. No pathologic adenopathy. PAGE 1 Signed Report (CONTINUED) Name: ROBERT CUMMINGS [facility] : 1950 Age/S: 67 / F [address] Unit #: [id number] Loc: [place] [address] Phys: Shabbir Puentes MD Acct: [id number] Dis Date: atus: UNK PHONE #: [phone] Exam [place] e: 09/15/2017 1703 FAX #: [phone] Reason: ABDOM P AIN, DIARRHEA EXAMS: CPT CODE: [id number] CT ABD PELVIS W/CONT 08113 <Continued> Unremarkable subcutaneous tissues limited due to extensive artifact from patient's massive body habitus. Chronic fracture deformity of the left hip with dislocation and erosion noted again. DJD. IMPRESSION: Patchy bibasal infiltrates with small effusions. Circumferential wall thickening of the 2nd through the 4th portion of the duodenum with periduodenal inflammation consistent with acute duodenitis. Correlate clinically. No free fluid or free air or abscess. No bowel obstruction with extensive sigmoid diverticulosis. No diverticulitis. Appendix is not seen with certainty but no inflammatory changes. Presacral soft tissue of unclear significance. No hydroureteronephrosis. at 1730 Reported and signed by: Clem Grissom M.D. CC: Shabbir Puentes MD Technologist:MISTY OLIVO RT(R) CT CTDI: DLP: Trnscb Date/Time: 09/15/2017 (1730) [email or web address] Orig Print D/T: S: 09/15/2017 (6506) PAGE 2 Signed Report - XR CHEST 1 [id number] 14:10:00 FAX: Shabbir Puentes MD [place]: B St: UNK Name: MOJGAN SAUCEDO [facility] : [birth year] Age/S: 67/F [address] Unit #: [id number] Loc: [place] [address] Phys: Shabbir Puentes MD Acct: [id number] Dis Date: Status: UNK PHONE #: [phone] Exam Date: 09/15/2017 1404 FAX #: [phone] Reason: Altered Mental Status EXAMS: CPT CODE: [id number] XR CHEST 1 V 84141 HISTORY: Confusion. COMPARISON: August 23, 2016. Patchy bilateral interstitial infilt rates. Dependent changes. No effusion or congestion. Cardiomegaly. IMPRESSION: Patchy bilateral interstitial infiltra melina. at 141 0 Reported and signed by: Clem Grissom M.D. CC: Shabbir Puentes MD Te chnologist: JEANNE HANKS RT(R); YAMILE TEMPLETON RT(R) Trnwyrd Date/ Time/By: 09/15/2017 (1410) : By: [email or web address] Orig Print D/T: S: 09/15/20 17 (1241) PAGE 1 Signed Report - XR CHEST 1 [id number] 14:10:00 FAX: Shabbir Puentes MD [place]: St: UNK Name: MOJGAN SAUCEDO [facility] : [birth year] Age/S: 67/F [address] Unit #: [id number] Loc: [place] [address] Phys: Shabbir Puentes MD Acct: [id number] Dis Date: Status: UNK PHONE #: [phone] Exam Date: 09/15/2017 1404 FAX #: [phone] Reason: Altered Mental Status EXAMS: CPT CODE: [id number] XR CHEST 1 V 89615 HISTORY: Confusion. COMPARISON: August 23, 2016. Patchy bilateral interstitial infilt rates. Dependent changes. No effusion or congestion. Cardiomegaly. IMPRESSION: Patchy bilateral interstitial infiltra melina. at 141 0 Reported and signed by: Clem Grissom M.D. CC: Shabbir Puentes MD chnologist: JEANNE HANKS RT(R); YAMILE TEMPLETON RT(R) Trnwyrd Date/ Time/By: 09/15/2017 (1410) : By: [email or web address] Orig Print D/T: S: 09/15/20 17 (7660) PAGE 1 Signed Report - [facility]UIDANCE [facility] [id number] 15:21:00 Name: MOJGAN CUMMINGS [facility] : 1950 Age/S: 66 / F [address] [facility] Unit #: [id number] Loc: [place] [address] Phys: William Hein MD Acct: [id number] Di s Date: Status: UNK PHONE #: Exam Date: 08/23/2016 1401 FAX #: Reason: EXAMS: CPT CODE: [id number] [facility]ANCE [facility] ACCESS 25203 Fluoro Time: 0 DAP (Gy m2): 0 Air Kerma (mGy): 0 REASON FOR EXAM: Thrombocytopenia Attending MLatrell: Olvin Hein MD EXAM ORDER DATE: 08/23/2016 1:55 PM PROCEDURE: Ultrasound Guided Peripherally Inserted Central Catheter Placement CPT code: 38769, 21325 FINDINGS: After informed consent was obtained, the equipment was brought to patient bedside in special procedures recovery area. The left arm was prepped and draped in the usual fashion. All elements of maximal sterile barrier technique were followed. 2% local lidocaine was given for local anesthetic. Ultrasound demonstrates patency of the vein. The vein was patent, compressible and no thrombus noted. Images of the vein was s ubmitted to PACS. Under real time ultrasound guidance, a micropuncture nee dle was used to access the basilic vein. A dual-lumen PICC line was insert ed with the tip trimmed short to reside within the SVC. The catheter was s ecured with a stat-lock and is ready for use. MEDICATIONS: N one. COMPLICATIONS: None. Blood loss: Less than 5 mL IMPRESSION: Left upper arm PICC line is ready for use. at 1521 Reported and signed by: Brayan Toro M.D. CC: Olvin Hein MD; Oswald Ho DO Technologist: SARITHA PATINO Trnscb Date/Time: 08/23/2016 (1521) [email or web address] Orig Print D/T: S: 08/23/2016 (887) PAGE 1 Signed Report - US GUIDANCE [facility]ASC [id number] 15:21:00 Name: MOJGAN CUMMINGS [facility] : 1950 Age/S: 66 / F [address] [facility] Unit #: [id number] Loc: [place] [address] Phys: Olvin Hein MD Acct: [id number] Dis Date: Status: UNK PHONE #: [phone] Exam Date: 08/23/2016 1406 FAX #: [phone] Reason: EXAMS: CPT CODE: [id number] [facility] GUIDANCE [facility] ACCESS 86203 Fluoro Time: 0 DAP (Gy m2): 0 Air Kerma (mGy): 0 REASON FOR EXAM: Thrombocytopenia Attending MLatrell: Olvin Hein MD EXAM ORDER DATE: 08/23/2016 1:55 PM PROCEDURE: Ultrasound Guided Peripherally Inserted Central Catheter Placement CPT code: 58656, 26792 FINDINGS: After informed consent was obtained, the equipment was brought to patient bedside in special procedures recovery area. The left arm was prepped and draped in the usual fashion. All elements of maximal sterile barrier technique were followed. 2% local lidocaine was given for local anesthetic. Ultrasound demonstrates patency of the vein. The vein was patent, compressible and no thrombus noted. Images of the vein was submitted to PACS. Under real time ultrasound guidance, a micropuncture needle was used to access the basilic vein. A dual-lumen PICC line was inserted with the tip trimmed short to reside within the SVC. The catheter was secured with a stat-lock and is ready for use. MEDICATIONS: None. COMPLICATIONS: None. Blood loss: Less than 5 mL IMPRESSION: Left upper arm PICC line is ready for use. at 1521 Reported and signed by: Brayan Toro M.D. CC: Olvin Hein MD; Oswald Ho DO Technologist: SARITHA PATINO Trnwyb Date/Time: 08/23/2016 (1521) [email or web address] Orig Print D/T: S: 08/23/2016 (4087) PAGE 1 Signed Report - XR CHEST 1 [id number] 14:41:00 FAX: Olvin Hein MD [phone] [place]: St: [facility] FAX: Oswald Howard DO [phone] Name: MOJGAN CUMMINGS [facility] : 1950 Age/S: 66/F [address] [facility] Unit #: [id number] Loc: [place] [address] Phys: Brayan Toro MD Acct: [id number] Dis Date: Status: UNK PHONE #: [phone] Exam Date: 08/23/2016 1415 FAX #: [phone] Reason: POST LINE PLACEMENT EXAMS: CPT CODE: [id number] XR CHEST 1 V 19278 HISTORY: Post line placement. COMPARISON: August 11, 2016. Left PICC line with the tip projected over the proximal subclavian vein. No acute infiltrates, effusion or congesti on. Cardiomegaly. IMPRESSION: Left PICC line with the tip projected over the left proximal subclavian vein. at 1441 Reported and signed by: Clem Grissom M.D. CC: Olvin Hein MD; Oswald Ho DO Technologist: ABHIJEET LOPEZ RT(R); Maricruz Vergara RT(R) Trnscrd Date/Time/By: 6 (1357) : By: [email or web address] Orig Print D/T: S: 08/23/2016 (4714) PAGE 1 Signed Report - XR CHEST 1 [id number] 14:41:00 FAX: Olvin Hein MD [phone] [place]: St: [facility] FAX: Y Oswald Ho DO [phone] Name: ZOILAMOJGAN MOLINA [facility] : 1950 Age/S: 66/F [address] Unit #: [id number] Loc: [place] [address] Phys: Brayan Toro MD Acct: [id number] Dis Date: Status: UNK PHONE #: [phone] Exam Date: 08/23/2016 1415 FAX #: [phone] Reason: POST LINE PLACEMENT EXAMS: CPT CODE: [id number] XR CHEST 1 V 52971 HISTORY: Post line placement. COMPARISON: August 11, 2016. Left PICC line with the tip projected over the proximal subclavian vein. No acute infiltrates, effusion or congesti on. Cardiomegaly. IMPRESSION: Left PICC line with the tip projected over the left proximal subclavian vein. at 1441 Reported and signed by: Clem Grissom M.D. CC: Olvin Hein MD; Oswald Ho DO Technologist: ABHIJEET LOPEZ RT(R); Maricruz Vergara RT(R) Trnscrd Date/Time/By: 6 (8867) : By: [email or web address] Orig Print D/T: S: 08/23/2016 (8996) PAGE 1 Signed Report - US GUIDANCE VASC [id number] 17:53:00 Name: MOJGAN CUMMINGS [facility] : 1950 Age/S: 66 / F [address] Unit #: [id number] [place] [address] Phys: Olvin Hein MD Acct: [id number] Dis Date: Status: UNK PHONE #: [phone] Exam Date: 08/11/2016 1615 FAX #: [phone] Reason: EXAMS: CPT CODE: [id number] US GUIDANCE [facility] ACCESS 14987 Fluoro Time: 0 DAP (Gy m2): 0 Air Kerma (mGy): 0 REASON FOR EXAM: Acute renal failure EXAM ORDER DATE: 08/11/2016 4:00 PM Attending Crispin: Olvin Hein MD PROCEDURE: Ultrasound and fluoroscopic guided temporary hemodialysis catheter Placement CPT code: 33538, 48077, 23466 FINDINGS: After informed consent was obtained, the patient was brought to special procedures and placed supine on the table. The right neck was prepped and draped in the usual fashion. All elements of maximal sterile barrier technique were followed. The right IJ vein is patent and compressible. Images of the vein was submitted to PACS. Under real time ultrasound guidance, a micropuncture needle was used to access the vein. A catheter was inserted with the tip positioned within the SVC. The catheter was sutured to the subcutaneous tissue and is ready for use. MEDICATIONS: None. COMPLICATIONS: None. Blood Loss: less than 5cc IMPRESSION: Right IJ temporary hemodialysis catheter is ready for use. at 7554 Reported and signed by : Brayan Toro M.D. CC: Olvin Hein MD; Oswald Ho DO Technologist: Mariya Gupta RT(R) Trnscb Date/Time: 08/12/2016 (9586) Rodrigo Orig Print D/T: S: 08/12/2016 (9304) PAGE 1 Signed Report - US GUIDANCE VASC [id number] 17:53:00 Name: MOJGAN CUMMINGS [facility] : 1950 Age/S: 66 / F [address] Unit #: [id number] Loc: [place] [address] Phys: Olvin Hein MD Acct: [id number] Dis Date: Status: UNK PHONE #: [phone] Exam Date: 08/11/2016 1615 FAX #: [phone] Reason: EXAMS: CPT CODE: [id number] US GUIDANCE [facility] ACCESS 28760 Fluoro Time: 0 DAP (Gy m2): 0 Air Kerma (mGy): 0 REASON FOR EXAM: Acute renal failure EXAM ORDER DATE: 08/11/2016 4:00 PM Attending Crispin: Olvin Hein MD PROCEDURE: Ultrasound and fluoroscopic guided temporary hemodialysis catheter Placement CPT code: 97414, 44188, 88198 FINDINGS: After informed consent was obtained, the patient was brought to special procedures and placed supine on the table. The right neck was prepped and draped in the usual fashion. All elements of maximal sterile barrier technique were followed. The right IJ vein is patent and compressible. Images of the vein was submitted to PACS. Under real time ultrasound guidance, a micropuncture needle was used to access the vein. A catheter was inserted with the tip positioned within the SVC. The catheter was sutured to the subcutaneous tissue and is ready for use. MEDICATIONS: None. COMPLICATIONS: None. Blood Loss: less than 5cc IMPRESSION: Right IJ temporary hemodialysis catheter is ready for use. at 1759 Reported and signed by : Brayan Toro M.D. CC: Olvin Hein MD; Oswald Ho DO Technologist: Mariya ALEXANDRA(R) Trnscb Date/Time: 08/12/2016 (9056) HarryVTL Orig Print D/T: S: 08/12/2016 (4384) PAGE 1 Signed Report - XR CHEST 1 [id number] 16:43:00 FAX: Olvin Hein MD [phone] [place]: St: [facility] FAX: Y Oswald Ho DO [phone] Name: MOJGAN CUMMINGS [facility] : 1950 Age/S: 66/F [address] [facility] Unit #: [id number] Loc: [place] [address] Phys: Brayan Toro MD Acct: [id number] Dis Date: Status: UNK PHONE #: [phone] Exam Date: 08/11/2016 1623 FAX #: [phone] Reason: HD CATHETER EXAMS: CPT CODE: [id number] XR CHEST 1 V 09577 EXAM: Chest x-ray, one view; INFORMATION: Renal fa ilure; status post insertion of dialysis catheter; IMPRESS ION: 1. The tip of a right IJ hemodialysis catheter is positioned in th e SVC. 2. No evidence of a pneumothorax. 3. No other a cute changes compared with the study obtained earlier today; mild cardio megaly. at 1643 Reported and signed by: Rex Gates M.D. CC: Olvin Dave MD; Oswald oH DO Technologist: Lashell Monaco Trnscrd Date/Time/By: 08/11/2016 (4350) : By: HarryGRW Orig Print D/T: S: 08/11/2016 (2748) PAGE 1 Signed Report - XR CHEST 1 [id number] 16:43:00 FAX: Olvin Hein MD [phone] [place]: St: [facility] FAX: Y Oswald Ho DO [phone] Name: MOJGAN CUMMINGS [facility] : 1950 Age/S: 66/F [address] Unit #: [id number] Loc: [place] [address] Phys: Brayan Toro MD Acct: [id number] Dis Date: Status: K PHONE #: [phone] Exam Date: 08/11/2016 1623 FAX #: [phone] Reason: HD CATHETER EXAMS: CPT CODE: [id number] XR CHEST 1 V 08359 EXAM: Chest x-ray, one view; INFORMATION: Renal failure; status post insertion of dialysis catheter; IMPRESSION: 1. The tip of a right IJ hemodialysis catheter is positioned in the SVC. 2. No evidence of a pneumothorax. 3. No other acute changes compared with the study obtained earlier today; mild cardiomegaly. at 1643 Reported and signed by: Rex Gates M.D. CC: Olvin Hein MD; Oswald Ho DO Technologist: Lashell Monaco Trnscrd Date/Time/By: 08/11/2016 (320) : By: Omar Orig Print D/T: S: 08/11/2016 (213) PAGE 1 Signed Report - CT HEAD/BRAIN W/O [id number] 14:40:00 Name: MOJGAN CUMMINGS [facility] : 1950 Age/S: 66 / F [address] Unit #: [id number] Loc: [place] [address] Phys: Olvin Hein MD Acct: [id number] Dis Date: Status: UNK PHONE #: [phone] Exam Date: 08/11/20161426 FAX #: [phone] Reason: altered mental status EXAMS: CPT CODE: [id number] CT HEAD/BRAIN W/O CONT 97277 HISTORY: Confusion. COMPARISON: None available. CT brain without contrast: Automated exposure control. Note: Motion limited study. No acute intracranial bleeds or extra-axial collections are noted. No acute territorial vascular infarction is noted. The sulci, gyri, ventricles and subarachnoid spaces and the basilar cisterns are normal for patient's age. No herniation or hydrocephalus or midline shift is noted. Mild periventricular ischemic gliosis is noted. Age-appropriate atrophy is noted as well. Portions of the visualized paranasal sinuses are normal. No obvious bony calvarial defect is noted. IMPRESSION: No acute intracranial bleeds or extra-axial collections. No acute territorial vascular infarction. No herniation or hydrocephalus or midline shift. Chronic white matter ischemic disease and atrophy . at 1440 Reported and signed by: Clem Grissom M.D. CC: Olvin Hein MD; Oswald Ho DO Technologist:Cindy Paredes RT(R) CTDI: DLP: Trnscb Date/Time: 08/11/2016 (1440) t.SDR.TH4 Orig Print D/T: S: 08/11/2016 (7310) PAGE 1 Signed Report - CT HEAD/BRAIN W/O [id number] 14:40:00 Name: MOJGAN CUMMINGS [facility] : 1950 Age/S: 66 / F [address] Unit #: [id number] Loc: [place] [address] Phys: William Hein MD Acct: [id number] Di s Date: Status: UNK PHONE #: [phone] Exam Date: 08/11/2016 1427 FAX #: Reason: altered mental status EXAMS: CPT CODE: [id number] CT HEAD/BRAIN W/O CONT 80722 HISTORY: Confusion. COMPARISON: None available. CT brain without contrast: Au tomated exposure control. Note: Motion limited study. No acute intracranial bleeds or extra-axial collections are noted. No ac billie territorial vascular infarction is noted. The sulci, gyri, leena tricles and subarachnoid spaces and the basilar cisterns are normal for pa tient's age. No herniation or hydrocephalus or midline shift is noted. Mild periventricular ischemic gliosis is noted. Age-appropriate atrophy is noted as well. Portions of the visualized paranasal si nuses are normal. No obvious bony calvarial defect is noted. IMPRESSION: No acute intracranial bleeds or extra-a xial collections. No acute territorial vascular infarction. No herniation or hydrocephalus or midline shift. Chronic white matter ischemic disease and atrophy . at 1440 Reported and signed by: Clem Grissom M.D. CC: Olvin Hein MD; Oswald Ho DO Technologist:Cindy Paredes RT(R) CTDI: DLP: Trnscb Date/Time: 08/11/2016 (1440) t.SDR.TH4 Orig Print D/T: S: 08/11/2016 (5029) PAGE 1 Signed Report - US RETRO [id number] 14:22:00 Name: MOJGAN CUMMINGS [facility] : 1950 Age/S: 66 / F [address] [facility] Unit #: [id number] Loc: [place] [address] Phys: Olvin Hein MD Acct: [id number] Dis Date: Status: UNK PHONE #: [phone] Exam Date: 08/11/2016 1407 FAX #: [phone] Reason: renal failure EXAMS: CPT CODE: [id number] US RETRO LTD 98820 HISTORY: Renal failure. COMPARISON: CT abdomen and pelvis from August 09, 2016 and ultrasound abdomen from August 10. Both kidneys are normal in echogenicity and texture. The right kidney is poorly visible on this examination No perinephric collections. No hydronephrosis or calyceal stones. The right kidney measured 11.7 x 5.1 x 5.6 cm. The left kidney measured 11.7 x 5.8 x 1.4 cm. Decompressed urinary bladder is nondiagnostic. IMPRESSION: No hydronephrosis or calyceal stones. Normal echogenicity and texture. Nondiagnostic decompressed urinary bladder. at 1422 Reported and signed by: Clem Grissom M.D. CC: Olvin Hein MD; Oswald Ho DO Technologist: RICK PRICE RT(R),[facility] Trnwyb Date/Time: 08/11/2016 (1421) t.JOSELYNR.TH4 Orig Print D/T: S: 08/11/2016 (1425) Probe: PAGE 1 Signed Report - US RETRO [id number] 14:22:00 Name: MOJGAN CUMMINGS [facility] : 1950 Age/S: 66 / F [address] [facility] Unit #: [id number] Loc: [place] [address] Phys: Olvin Hein MD Acct: [id number] Dis Date: Status: UNK PHONE #: [phone] Exam Date: 08/11/20161406 FAX #: [phone] Reason: renal failure EXAMS: CPT CODE: [id number] RETRO LTD 68662 HISTORY: Renal failure. COMPARISON: CT abdomen and pelvis from August 09, 2016 and ultrasound abdomen from August 10. Both kidneys are normal in echogenicity and texture. The right kidney is poorly visible on this examination No perinephric collections. No hydronephrosis or calyceal stones. The right kidney measured 11.7 x 5.1 x 5.6 cm. The left kidney measured 11.7 x 5.8 x 1.4 cm. Decompressed urinary bladder is nondiagnostic. IMPRESSION: No hydronephrosis or calyceal stones. Normal echogenicity and texture. Nondiagnostic decompressed urinary bladder. at 1422 Reported and signed by: Clem Grissom M.D. CC: Olvin Hein MD; Oswald Ho DO Technologist: RICK PRICE RT(R),RDMS Trnwyb Date/Time: 08/11/2016 (0622) [email or web address] Orig Print D/T: S: 08/11/2016 (7213) Probe: PAGE 1 Signed Report - XR CHEST 1 [id number] 13:42:00 FAX: Olvin Hein MD [phone] [place]: St: [facility] FAX: Y Oswald Ho DO [phone] Name: MOJGAN CUMMINGS [facility] : 1950 Age/S: 66/F [address] [facility] Unit #: [id number] Loc: [place] [address] Phys: Olvin Hein MD Acct: [id number] Dis Date: Status: UNK PHONE #: [phone] Exam Date: 08/11/2016 1335 FAX #: [phone] Reason: rule out pneumonia EXAMS: CPT CODE: [id number] XR CHEST 1 V 34640 HISTORY: Pneumonia and abdominal pain with vomiting and diarrhea. COMPARISON: None available. Patchy right basal interstitial infiltrates. No effusion or congestion. Cardiomegaly. IMPRESSION: Patchy bibasal interstitial infiltrates. at 1342 Reported and signed by: Clem Grissom M.D. CC: Olvin Hein MD; Oswald Ho DO Technologist: Shruthi Tadeo RT(R) Trnwyrd Date/Time/By: 08/11/2016 (1342) : By: [email or web address] Orig Print D/T: S: 08/11/2016 (3477) PAGE 1 Signed Report - XR CHEST 1 [id number] 13:42:00 FAX: Olvin Hein MD [phone] [place]: St: [facility] FAX: Y Oswald Ho DO [phone] Name: MOJGAN CUMMINGS [facility] : 1950 Age/S: 66/F [address] Unit #: [id number] Loc: [place] [address] Phys: Olvin Hein MD Acct: [id number] Dis Date: Status: [facility] PHONE #: [phone] Exam Date: 08/11/2016 1335 FAX #: [phone] Reason: rule out pneumonia EXAMS: CPT CODE: [id number] XR CHEST 1 V 80287 HISTORY: Pneumonia and abdominal pain with vomiting and diarrhea. COMPARISON: None available. Patchy right basal int erstitial infiltrates. No effusion or congestion. Cardiomegaly. IMPRESSION: Patchy bibasal interstitial infiltrates. at 1342 Reported and signed by: Clem Grissom M.D. CC: Olvin Hein MD; Oswald Ho DO Technologist: Shruthi Tadeo RT(R) Trnscrd Date/Time/By: 08/11/2016 (134) : By: [email or web address] Orig Print D/T: S: 08/11/2016 (7941) PAGE 1 Signed Report - US ABDOMEN [id number] 07:20:00 Name: MOJGAN CUMMINGS [facility] : 1950 Age/S: 66 / F [address] Unit #: [id number] Loc: [place] [address] Phys: Olvin Hein MD Acct: [id number] Dis Date: Status: UNK PHONE #: [phone] Exam Date: 08/10/2016516 FAX #: [phone] Reason: rule out cholecystitis EXAMS: CPT CODE: [id number] US ABDOMEN LTD 38154 HISTORY: Cholecystitis; abdominal pain TECHNIQUE: Static grayscale and Doppler images from real time sonographic evaluation of the right upper quadrant. COMPARISON: CT abdomen 08/09/16 FINDINGS: LIVER: Hepatomegaly, measuring 21 cm craniocaudal. Diffuse increased parenchymal echogenicity. No intrahepatic biliary dilation. Hepatopedal flow identified within the portal vein. GALLBLADDER: Distended gallbladder with tiny stones. No gallbladder wall thickening or pericholecystic fluid. Technologist reports negative sonographic Rodriguez's sign. COMMON DUCT: Normal caliber at 4 mm. PANCREAS: Partially obscured. No visible pancreatic abnormality. RIGHT KIDNEY: Normal parenchymal echogenicity. Measures 11.8 x 4.6 x 6.0 cm. No hydronephrosis. OTHER: There is no free fluid. IMPRESSION: Limited visualization due to body habitus. Distended gallbladder with multiple small stones. No gallbladder wall thickening or pericholecystic fluid. Recommend HIDA scan if there is continued suspicion for cholecystitis. Hepatomegaly with diffusely increased echogenicity, suggesting fibrofatty changes. at 0720 Reported and signed by: Lenka Farrar D.O. CC: Olvin Hein MD; Oswald Ho DO Technologist: Evette Gregory RDMS Trnwyb Date/Time: 08/10/2016 (719) Ryanne Orig Print D/T: S: 08/10/2016 (0782) Probe: PAGE 1 Signed Report - US ABDOMEN [id number] 07:20:00 Name: MOJGAN CUMMINGS [facility] : 1950 Age/S: 66 / F [address] Unit #: [id number] Loc: [place] [address] Phys: Olvin Hein MD Acct: [id number] Dis Date: Status: UNK PHONE #: [phone] Exam Date: 08/10/2016516 FAX #: [phone] Reason: rule out cholecystitis EXAMS: CPT CODE: [id number] US ABDOMEN LTD 66931 HISTORY: Cholecystitis; abdominal pain TECHNIQUE: Static grayscale and Doppler images from real time sonographic evaluation of the right upper quadrant. COMPARISON: CT abdomen 08/09/16 FINDINGS: LIVER: Hepatomegaly, measuring 21 cm craniocaudal. Diffuse increased parenchymal echogenicity. No intrahepatic biliary dilation. Hepatopedal flow identified within the portal vein. GALLBLADDER: Distended gallbladder with tiny stones. No gallbladder wall thickening or pericholecystic fluid. Technologist reports negative sonographic Rodriguez's sign. COMMON DUCT: Normal caliber at 4 mm. PANCREAS: Partially obscured. No visible pancreatic abnormality. RIGHT KIDNEY: Normal parenchymal echogenicity. Measures 11.8 x 4.6 x 6.0 cm. No hydronephrosis. OTHER: There is no free fluid. IMPRESSION: Limited visualization due to body habitus. Distended gallbladder with multiple small stones. No gallbladder wall thickening or pericholecystic fluid. Recommend HIDA scan if there is continued suspicion for cholecystitis. Hepatomegaly with diffusely increased echogenicity, suggesting fibrofatty changes. at 0720 Reported and signed by: Lenka Farrar D.O. CC: Olvin Hein MD; Oswald Ho DO Technologist: Evette Gregory RDMS Trnwyb Date/Time: 08/10/2016 (07) GeneP1 Orig Print D/T: S: 08/10/2016 (1415) Probe: PAGE 1 Signed Report - CT ABD PELVIS W/O [id number] 17:31:00 Name: MOJGAN CUMMINGS [facility] : 1950 Age/S: 66 / F [address] [facility] Unit #: [id number] Loc: [place] [address] Phys: Carlos Griffin MD Acct: [id number] Di s Date: Status: UNK PHONE #: [phone] Exam Date: 08/09/20161721 FAX #: Reason: abd pain diarrhea renal failure EXAMS: CPT CODE: [id number] CT ABD PELVIS W/O CONT 36876 EXAM: CT of the abdomen a nd pelvis with contrast; INFORMATION: Abdominal pain and diarrhea; TECHNIQUE: CT dose reduction protocol; 5 mm cuts were obtained through the abdomen and pelvis during and after intrave nous infusion of contrast material. FINDINGS: Liver, spleen and pancreas are of normal size and shape; they show homogeneous enhanceme nt without focal lesions. There is decreased attenuation of the hepatic p arenchyma. No abnormalities of the biliary system. Adrenal glands an d kidneys are unremarkable; no evidence of adenopathy; No evidence o f appendicitis or other acute bowel abnormalities. No pelvic mass lesions. No abnormal fluid collections. Scans through the lung bases show mi ld dependent atelectasis in the right lower lobe and pleural scarring. IMPRESSION: 1. No evidence of acute abdo rajendra or pelvic abnormalities. 2. No evidence of hydronephrosis or kristofer l stones. 3. Fatty liver. El ectronically Signed by Crispin Gates on 08/09 at 1731 Reported and signed by: Jaimee Gates M.D. CC: Spencer Griffin MD Technologist:Dmitri Cortes RT(R),(MR),(CT) CTDI: DLP: Trnscb D ate/Time: 08/09/2016 (173) Omar Orig Print D/T: S: 08/09/2016 (5345) PAGE 1 Signed Report - CT ABD PELVIS W/O [id number] 17:31:00 Name: MOJGAN CUMMINGS [facility] : 1950 Age/S: 66 / F [address] Unit #: [id number] Loc: [place] [address] Phys: Spencer Griffin MD Acct: [id number] Dis Date: Status: UNK PHONE #: [phone] Exam Date: 08/09/2016 1722 FAX #: [phone] Reason: abd pain diarrhea renal failure EXAMS: CPT CODE: [id number] CT ABD PELVIS W/O CONT 14648 EXAM: CT of the abdomen and pelvis with contrast; INFORMATION: Abdominal pain and diarrhea; TECHNIQUE: CT dose reduction protocol; 5 mm cuts were obtained through the abdomen and pelvis during and after intravenous infusion of contrast material. FINDINGS: Liver, spleen and pancreas are of normal size and shape; they show homogeneous enhancement without focal lesions. There is decreased attenuation of the hepatic p arenchyma. No abnormalities of the biliary system. Adrenal glands an d kidneys are unremarkable; no evidence of adenopathy; No evidence o f appendicitis or other acute bowel abnormalities. No pelvic mass lesions. No abnormal fluid collections. Scans through the lung bases show mi ld dependent atelectasis in the right lower lobe and pleural scarring. IMPRESSION: 1. No evidence of acute abdo rajendra or pelvic abnormalities. 2. No evidence of hydronephrosis or kristofer l stones. 3. Fatty liver. El ectronically Signed by Crispin Gates on 08/09 at 1731 Reported and signed by: Jaimee Gates M.D. CC: Spencer Griffin MD Technologist:Dmitri Cortes RT(R),(MR),(CT) CTDI: DLP: Trnscb D ate/Time: 08/09/2016 (1731) Omar Orig Print D/T: S: 08/09/2016 (0465) PAGE 1 Signed Report [id number] 17:55:34692OL SoutheastELECTROLYTES 2016-06-14 17:55:005.1MH CizbqvkzrKCDQAKASEWHT5114-53-60 17:55:0011.1MH SgtqjrtzaMSPGXMGNLMCN3853-97-33 17:55:009.2MH QmhpsbnbbAKVKWYTNECJW2084-15-25 17:55:0026MH GkmsdifpvRHMQRUMSBKSC8701-42-71 17:55:0076MH [facility] 2016-06-14 17:55:000.80MH OsojiwojaAWEGRLNUACYI5857-78-77 17:55:0011 [facility] TFSFEVVFPFYB5918-56-63 17:55:48497GE LikjrpmitVXQGVMKZKUOH5992-44-75 17:55:93116 [facility]- XR KNEE 1 OR 2 V [id number] 16:43:00 FAX: Oswald Howard DO [phone] [place]: O St: UNK Name: MOJGAN SAUCEDO [facility] : [birth year] Age/S: 63/F [address] Unit #: [id number] [place]: [place] [address] Phys: Oswald Ho DO Acct: [id number] Dis Date: Status: UNK PHONE #: [phone] Exam Date: 01/08/2014 1140 FAX #: [phone] Reason: 719.46 KNEE PAIN EXAMS: CPT CODE: [id number] XR KNEE 1 [place] [address] [place] [address] TECHNIQUE: Bilateral knees 2 views each side. FINDINGS: Severe tricompartmental osteoarthritis with narrowing greatest in the medial and patellofemoral compartments bilateral ly. Bilateral mild lateral subluxation of the tibia and mild tibia vara versus genu varus. No acute traumatic or destructive bone lesion or si gnificant joint effusion. IMPRESSION: Severe osteoarthritis in b [facility] knees. a t 812 Reported and signed by: Miguel A Gan M.D. CC: Oswald Ho DO Technologist: RT TESSA(Ivan) Trnscrd Date/Time/By: 01/08/2014 (1642) : By: [email or web address] Orig Print D/T: S: (7653) PAGE 1 Signed Repo rt - XR KNEE 1 OR 2 V [id number] 16:43:00 FAX: Oswald Howard DO [phone] [place]: O St: UNK Name: MOJGAN SAUCEDO [facility] : [birth year] Age/S: 63/F [address] Unit #: [id number] Loc: [place] [address] Phys: Oswald Ho DO Acct: [id number] Dis Date: Status: UNK PHONE #: [phone] Exam Date: 01/08/2014 1140 FAX #: [phone] Reason: 719.46 KNEE PAIN EXAMS: CPT CODE: [id number] XR KNEE 1 [place] [address] [place] [address] TECHNIQUE: Bilateral knees 2 views each side. FINDINGS: Severe tricompartmental osteoarthritis with narrowing greatest in the medial and patellofemoral compartments bilateral ly. Bilateral mild lateral subluxation of the tibia and mild tibia vara versus genu varus. No acute traumatic or destructive bone lesion or si gnificant joint effusion. IMPRESSION: Severe osteoarthritis in b oth knees. a t 5122 Reported and signed by: Miguel A Gan M.D. CC: Oswald Ho DO Technologist: RT TESSA(R) Trnscrd Date/Time/By: 01/08/2014 (796) : By: [email or web address] Orig Print D/T: S: (2647) PAGE 1 Signed Repo rt CHEST SINGLE (PORTABLE) [place] [address] Patient Name: MOJGAN CUMMINGS MR #: [id number] : 1950 Age/Sex: 68/F Req #: [id number] Adm Physician: Ordered by: NATHANIEL SANTACRUZ DO Report #: [id number] Location: ER Room/Bed: Procedure: [id number] DX/CHEST SINGLE (PORTABLE) Exam Date: 02/10/18 Exam Time: 1829 REPORT STATUS: Signed EXAMINATION: CHEST SINGLE (PORTABLE) 02/10/2018 6:20 PM COMPAR ROWAN: 01/14/2018 INDICATION: Shortness of breath DISCUSSION: BROOKE LYNDON: Right upper extremity PICC line. The tip is obscured by overlying leads. Tracheostomy tube is present. LUNGS: Lung volumes are low. Streaky o pacities in the lingula and left lower lobe likely represent atelectasis. PLEURA: No pleural effusion or pneumothorax. HEART AND MEDIASTINUM: The cardiomediastinal silhouette is unchanged. BONES AND SOFT TISSUES: No acut e osseous lesion. The soft tissues are normal. IMPRESSION: Low lung v olumes with basilar atelectasis. Minal Jackson MD Signed by: Dr. Minal Jackson M.D. on 02/10/2018 7:36 PM Dictated By: MINAL JACKSON MD 35 Transcribed By: BAMBI on 02/10/181935 COPY TO: NATHANIEL SANTACRUZ BA. [place] [address] Patient Name: MOJGAN CUMMINGS MR #: [id number] : 1950 Age/Sex: 67/F Req #: [id number] Adm Physician: ILAN STEIN MD Ordered by: Pilar Simeon PRODUCTION CLERK Report #: [id number] Location: MED/SURG2 Room/Bed: 204 Procedure: [id number] DX/M ODIFIED BA. SWALLOW Exam Date: 01/17/18 Exam Time: 1 407 REPORT STATUS: Signed PROCEDURE: X-RAY MODIFIED BARIUM SWALLOW COMPARISON: None. INDICATIONS: Bronchitis. Sepsis. DISCUSSIO N: Fluoroscopic examination was performed in conjunction with speech pathol ogy, during swallowing of a variety of thin and thick liquid consistencies. CONCLUSION: Silent trace aspiration. Please see the report from speech pathology for complete details. Dictated by: Nathaniel Tripp M.D. on at 8:01 Electronically approved by: Nathaniel Tripp M.D. on 018 at 8:01 Dictated By: NATHANIEL TRIPP MD 0 Transcribed By: DEN on 01/18/18800 COPY TO: PILAR SIMEON PRODUCTION CLERK CHEST SINGLE (PORTABLE) [place] [address] Patient Name: MOJGAN CUMMINGS MR #: [id number] : 1950 Age/Sex: 67/F Req #: [id number] Adm Physician: ILAN MAURICIO MD Ordered by: BALBIR BARDALES MD Report #: [id number] Location: I CU Room/Bed: ICU 191-1 Procedure: [id number] DX/CHEST SINGLE (PORTABLE) Exam Date: 01/14/18 Exam Time: 050 0 REPORT STATUS: Signed EXAMINATION: Chest, CHEST SINGLE (PORTABLE) INDICATION: Chest pain COMPARISON: Portable chest 01/13/2018 FINDINGS: LINES: Tracheostomy catheter is present with the tip proj ecting over the expected region of the trachea, positioned 6 cm from the prabhjot a. Heart: Normal cardiac silhouette. Vascular: The pulmonary vasculat ure is within normal limits. Atherosclerotic calcifications of the aortic arc h. Mediastinum: No mediastinal, hilar, or axillary mass or lymphadenopathy. Lungs: No parenchymal mass. No focal consolidation. Low lung volumes are present bilaterally. Bibasilar atelectasis. Pleura: No pleural effusion. No pneumothorax. Bones: No acute osseous abnormality. Degenerative changes of the thoracic spine. Soft tissues: Normal. Impression: No a cute radiographic abnormality. Signed by: Dr. Nathaniel Tripp M.D. on 8 7:33 AM Dictated By: NATHANIEL TRIPP MD 2 Transcribed By: BAMBI on 01/14/18732 COPY TO: BALBIR BARDALES MD ABDOMEN-1VIEW ([facility] [place] [address] Patient Name: MOJGAN CUMMINGS MR #: [id number] : 1950 Age/Sex: 67/F Req #: [id number] Adm Physician: ILAN STEIN MD Ordered by: KIAN ROGERS PA-C Report #: [id number] Location: ICU Room/Bed: ICU [facility] Procedure: [id number] DX/AB ANDREEN-1VIEW ([facility]) Exam Date: 01/13/18 Exam Time: 192 0 REPORT STATUS: Signed RADIOGRAPH(S) OF THE ABDOMEN AND PELVIS, 2 view (s) HISTORY: Assess placement of PEG tube COMPARISON: None avail able. FINDINGS: Soft tissue attenuation partially limits sensitivity of t he exam. Overlying monitoring leads. Paucity of bowel gas aside from a small amount in the right upper quadrant of the abdomen. A radiopaque tube and ba lloon project at the right upper quadrant of the abdomen. Chronic appeari ng deformity about the expected location of the left hip, correlate for prior proximal left femoral resection versus hardware removal. Moderate to severe m ultilevel degenerative changes of the lumbosacral spine. IMPRESSION: Radiopaque tubing and balloon project at the right upper quadrant the abdomen. Signed by: Dr. Eric Lantigua D.O., M.M.M. on 01/13/2018 7:59 PM Dictated By: ERIC LANTIGUA DO 58 Transcribed By: BAMBI on 01/13/181958 COPY TO: KIAN ROGERS PA-C CHEST XRAY LINE PLACEMENT [place] [address] Patient Name: MOJGAN CUMMINGS MR #: [id number] : 1950 Age/Sex: 67/F Req #: [id number] Adm Physician: ILAN STEIN MD Ordered by: KIAN ROGERS PA-C Report #: [id number] Location: ICU Room/Bed: ICU [facility] Procedure: [id number] DX/CH EST XRAY LINE PLACEMENT Exam Date: 01/13/18 Exam Alcon e: 1920 REPORT STATUS: Signed A single frontal view of the chest. HISTORY: PICC line COMPARISON: Chest radiograph January 13, 2018 DIS CUSSION: Portable technique, limits sensitivity of the exam. Soft tissue at tenuation partially limits sensitivity of the exam. Left anterior oblique rota tion further limits the examination. Numerous overlying monitoring leads. Tu bes/Lines: Partially obscured tracheostomy tube. A right upper from a PICC li ne, the tip of the catheter projects near the expected location of the cavoatr ial junction. Lungs and pleura: Low lung volumes result in bibasilar va scular crowding, accentuation of the pulmonary interstitial markings, central pulmonary vasculature, and the cardiac silhouette. Allowing for these limitat ions, the findings are as follows: No evidence of a consolidative pneumonia or pulmonary alveolar edema. No definite pleural effusion or pneumothorax is i dentified. Heart and mediastinum: The cardiomediastinal silhouette appe ars unremarkable. Bones: No acute osseous lesion is identified, given t his limited exam. Bilateral severe degenerative changes of the glenohumeral romina ints. IMPRESSION: Status post right upper extremity PICC line placeme nt. Signed by: Madison JoseOFaye, M.M.M. on 01/13/2018 8:02 PM Dictated By: ERIC LANTIGAU DO 01 Transcribed By: BAMBI on 01/13/182001 COPY TO: KIAN LEE PA-C CHEST SINGLE (PORTABLE) [place] [address] Patient Name: MOJGAN CUMMINGS MR #: [id number] : 1950 Age/Sex: 67/F Req #: [id number] Adm Physician: ILAN STEIN MD Ordered by: BASIL POSADAS, AKILAH POSADAS Report #: [id number] Location: ICU Room/Bed: ICU [facility] Procedure: [id number] DX /CHEST SINGLE (PORTABLE) Exam Date: 01/13/18 Exam Ti me: 1410 REPORT STATUS: Signed PROCEDURE: A single AP view of the [address]. COMPARISON: 01/12/2018. INDICATIONS: PNEUMOTHORAX POST SURGERY FINDINGS: Limited examination due to patient rotation. Lines/t ubes: Interval placement of a tracheostomy. Lungs: Subsegmental atelectasi s in the left lung base. Mild interstitial opacities. Pleura: There is no pleural effusion or pneumothorax. Heart and mediastinum: The heart and the mediastinum are unchanged. Bones: Deformity of the humeral heads is unchanged and may reflect prior trauma or AVN. IMPRESSION: Limit ed examination due to patient rotation. No significant sized pneumothorax. Dictated by: Minal Jackson M.D. on 01/13/2018 at 16:06 Electronical ly approved by: Minal Jackson M.D. on 01/13/2018 at 16:06 Di ctated By: MINAL JACKSON MD 1606 Transcribed By: DEN on 01/13/18 1606 COPY TO: Jeison GRACIA CHEST SINGLE (PORTABLE) [place] [address] Patient Name: MOJGAN CUMMINGS MR #: [id number] : 1950 Age/Sex: 67/F Req #: [id number] Adm Physician: ILAN STEIN MD Ordered by: MAURO AUGUSTIN MD Report #: [id number] Location: ICU Room/Bed: ICU [facility] Procedure: [id number] DX/CH EST SINGLE (PORTABLE) Exam Date: 01/12/18 Exam Time: 0545 REPORT STATUS: Signed EXAMINATION: CHEST SINGLE (PORTABLE) INDICATION: Intubated. COMPARISON: 01/11/2018 FIND INGS: TUBES and LINES: Endotracheal and nasogastric tubes are stable. Endotra cheal tube is just below the thoracic inlet 5.4 cm above the marlyn, advanceme nt x 2 cm is recommended LUNGS: Lungs are not well inflated. There are bibasilar atelectasis. There is perihilar interstitial opacities, consistent with interstitial edema. PLEURA: No pleural effusion or pneumothorax. HEART AND MEDIASTINUM: Cardiac size is mildly enlarged. There are atheroscl erotic calcifications within the aorta. BONES AND SOFT TISSUES: No acute o sseous lesion. Soft tissues are unremarkable. UPPER ABDOMEN: No free air under the diaphragm. IMPRESSION: Advancement of endotracheal tube x 2 cm is recommended. Interval increase in interlobular septi thickening sugge stive of edema Signed by: Dr. Shana Echeverria M.D. on 01/12/2018 7:04 AM Dictated By: SHANA TIAN MD 3 Transcribed By: BAMBI on 01/12/18 0704 SAMPLING THEORY TEACHER Y TO: MAURO AUGUSTIN MD CHEST SINGLE (PORTABLE) [place] [address] Patient Name: MOJGAN CUMMINGS MR #: [id number] : 1950 Age/Sex: 67/F Req #: [id number] Adm Physician: ILAN STEIN MD Ordered by: MAURO AUGUSTIN MD Report #: [id number] Location: ICU Room/Bed: ICU [facility] Procedure: [id number] DX/CH EST SINGLE (PORTABLE) Exam Date: 01/11/18 Exam Time: 1650 REPORT STATUS: Signed PROCEDURE: A single AP view of the chest. COMPARISON: Chest portable 01/11/2018 at 1417 hrs.. INDICATIONS: I NTUBATION PLACEMENT, REPEAT X RAY FINDINGS: Lines/tubes: Endotrachea l catheter is present with the tip projecting over the expected region of the trachea, positioned 5 cm from the marlyn. Enteric feeding catheter is present with the tip extending below the inferior margin of the examination, likely within the gastric body. Lungs: Bibasilar atelectasis. No parenchym al mass. Possible narrowing of the trachea in the region of the thoracic inle t, at the level of the tip of the endotracheal catheter. Pleura: There is no pleural effusion or pneumothorax. Heart and mediastinum: The heart and the mediastinum are unremarkable. Bones: No acute bony abnormality. Degenerative changes of the thoracic spine. IMPRESSION: Narrowin g of the trachea may represent stenosis. Otherwise, no acute radiographic abn ormality. Dictated by: Nathaniel Tripp M.D. on 01/11/2018 at 17:08 Gem ctronically approved by: Nathaniel Tripp M.D. on 01/11/2018 at 17:08 Dictated By: NATHANIEL TRIPP MD 07 COPY TO: MAURO AUGUSTIN MD [place] [address] Patient Name: MOJGAN CUMMINGS MR #: [id number] : 1950 Age/Sex: 67/F Req #: [id number] Adm Physician: ILAN STEIN MD Ordered by: ILAN STEIN MD Report #: [id number] Location: ICU Room/Bed: ICU [facility] Procedure: [id number] DX/ALEXSANDERO MCKAYLA-MarisolVIEW (KUB) Exam Date: 01/11/18 Exam Time: 1300 REPORT STATUS: Signed PROCEDURE: X-RAY ABDOMEN - KUB COMPARISON: None. INDICATIONS: OG TUBE PLACEMENT FINDINGS: Enteric fe eding catheter is present with the tip projecting over the expected region of the gastric body. Gastrostomy catheter projects over the expected region of the distal gastric body. There is a non-obstructed bowel-gas patte rn. There are no calcifications projected over the renal shadows, expected co urse of the ureters or bladder. There are no acute osseous abnormalities. The lung bases are clear. CONCLUSION: No acute radiographic abnormali ty. Dictated by: Nathaniel Tripp M.D. on 01/11/2018 at 13:59 Electroni sherry approved by: Nathaniel Tripp M.D. on 01/11/2018 at 13:59 Dicta manuela By: NATHANIEL TRIPP MD 135 9 Transcribed By: DEN on 01/11/18 1357 COPY TO: ILAN STEIN MD CHEST [facility] (PORTABLE) [place] [address] Patient Name: MOJGAN CUMMINGS MR #: [id number] : 1950 Age/Sex: 67/F Req #: [id number] Adm Physician: ILAN STEIN MD Ordered by: IALN STEIN MD Report #: [id number] Location: ICU Room/Bed: ICU [facility] Procedure: [id number] DX/CHES T SINGLE (PORTABLE) Exam Date: 01/11/18 Exam Time: 1 300 REPORT STATUS: Signed PROCEDURE: A single AP view of the chest. COMPARISON: Chest portable 01/11/2018. CT chest 01/06/2018 INDICATIONS: ETT REPOSITION FINDINGS: Lines/tubes: Endotracheal catheter is pr esent with the tip projecting over the expected region of the trachea, positi oned 5 cm from the marlyn. Enteric feeding catheter is present with the tip e xtending below the inferior margin of the examination, likely within the delfina jayy body. Lungs: Bibasilar atelectasis. No parenchymal mass. Pleu ra: There is no pleural effusion or pneumothorax. Heart and mediastinum: The heart and the mediastinum are unremarkable. Bones: No acute bony abn ormality. Degenerative changes of the thoracic spine. IMPRESSION: No acute radiographic abnormality. Dictated by: Nathaniel Tripp M.D. on at 13:55 Electronically approved by: Nathaniel Tripp M.D. on 018 at 13:55 Dictated By: NATHANIEL TRIPP MD 135 Transcribed By: DEN on 01/11/18 1355 COPY TO: ILAN STEIN MD CHEST SINGLE (PORTABLE) [place] [address] Patient Name: MOJGAN CUMMINGS MR #: [id number] : 1950 Age/Sex: 67/F Req #: [id number] Adm Physician: ILAN STEIN MD Ordered by: ILAN STEIN MD Report #: [id number] Location: ICU Room/Bed: ICU [facility] Procedure: [id number] DX/CHES T SINGLE (PORTABLE) Exam Date: 01/11/18 Exam Time: 1 030 REPORT STATUS: Signed PROCEDURE: CHEST SINGLE (PORTABLE) TECHNI QUE: Portable AP chest INDICATION: Intubation COMPARISON: Patients [facility], DX, CHEST SINGLE (PORTABLE), 01/11/2018, 6:10. Patients [facility], DX, CHEST SINGLE (PORTABLE), 01/06/2018, 17:50. FINDINGS: See conclusion. CONCLUSION: 1. Endotracheal tube tip about 6 cm from the marlyn. 2. Progressive right upper lobe atelectasis and consolidation with accompanying mediastinal shift. 3. Stable bibasilar atelectasis. No pericardi al effusion. Mild cardiomegaly for technique. 4. The patient is rotated to the right, slightly limiting evaluation. Dictated by: Wilmer Marte M.D. on 01/11/2018 at 11:42 Electronically approved by: Wilmer Marte M.D. on 01/11/2018 at 11:42 Dictated By: WILMER FONSECA MD 1142 Transcrib ed By: DEN on 01/11/18 1142 COPY TO: ILAN STEIN MD CHEST SINGLE (PORTABLE) [place] [address] Patient Name: MOJGAN CUMMINGS MR #: [id number] : 1950 Age/Sex: 67/F Req #: [id number] Adm Physician: ILAN STEIN MD Ordered by: Pilar Simeon PRODUCTION CLERK Report #: [id number] Location: MED/SURG3 Room/Bed: [facility] Procedure: [id number] DX/C HEST SINGLE (PORTABLE) Exam Date: 01/11/18 Exam Time : 0600 REPORT STATUS: Signed EXAMINATION: CHEST SINGLE (PORTABLE) INDICATION: Follow-up pneumonia. COMPARISON: Chest x-ray on 01/06/2018 FINDINGS: TUBES and LINES: None. LUNGS: Lungs are not well inflated. There are bibasilar atelectasis. There is mild prominen ce of the central pulmonary vasculature, consistent with pulmonary venous tacho estion. PLEURA: No pleural effusion or pneumothorax. HEART AND MEDIAS TINUM: Cardiac size is moderately enlarged. The aorta is ectatic with atheros clerotic calcifications. BONES AND SOFT TISSUES: No acute osseous lesion. Soft tissues are unremarkable. UPPER ABDOMEN: No free air under the diap hragm. IMPRESSION: 1. Persistent central vascular congestion withou t evidence of edema. 2. Again, tortuous ectatic and atherosclerotic aorta. 3. No evidence of consolidation/pneumonia. Signed by: Dr. Shana Echeverria M.D. on 01/11/2018 7:01 AM Dictated By: SHANA TIAN MD [facility] Signed By: SHANA TIAN MD on 01/11/18 07 Transcribed By: YASHIRA NUGENT on 01/11/18 07 COPY TO: PILAR SIMEON PRODUCTION CLERK CT CHEST W [place] [address] Patient Name: MOJGAN CUMMINGS MR #: [id number] : 05/1950 Age/Sex: 67/F Req #: [id number] Adm Physician: ILAN MAURICIO MD Ordered by: JENN MILLER MD Report #: [id number] [facility] [place] [address] Procedure: [id number] C T/CT CHEST W Exam Date: 01/06/18 Exam Time: 1924 REPORT STATUS: Signed CT CHEST WITH CONTRAST HISTORY: Shortness of b reath, rule out PE COMPARISON: None TECHNIQUE: CT scan of the chest WITH intravenous contrast, using PE protocol. The chest was scanned utilizing a mu ltidetector helical scanner from the lung apex through the level of the adrena l glands. Thin section reconstructions were obtained with special concentrati on on the pulmonary arteries. IV CONTRAST: 100 cc of Isovue-370. PROTOCOL: PE RADIATION DOSE: Total DLP: 589.77 mGy*cm COMPLICATIONS: None DISCUSSION: Reportedly, the patient was unable to elevate their arms for the exam, which creates beam hardening art ifacts which limits the evaluation. Soft tissue attenuation further limits se nsitivity of the exam. Lungs: Bilateral dependent atelectasis, right great er than left. More confluent opacity at the posterior aspect of the right uppe r lobe. Vessels: No filling defects are identified within the pulmonary abel emily to the segmental levels, within the stated limitations. Airways: The m ajor airways are clear. Pleura: There is no evidence of pleural effusion or p neumothorax. Heart and mediastinum: The heart appears normal. Mediastinal lip omatosis. Fluid-filled and distended esophagus measuring up to 3.6 x 2.8 cm. Abdomen: The visualized parts of the upper abdomen are unremarkable. Diff use atrophy of the pancreatic parenchyma. Lymph nodes: No pathologically enlarged lymph node identified. Bones: No acute osseous lesion. Severe degene rative changes of the glenohumeral joints. Soft tissues: Unremarkable IMPRESSION: 1. No specific evidence of a pulmonary embolus to the segmental level. 2. Bilateral dependent atelectasis with more confluent opacity at the posterior aspect of the right upper lobe, aspiration or pneumonia may be c onsiderations in the appropriate setting. 3. Distended and fluid-filled esoph katya. Signed by: Dr. Eric Lantigua D.O., M.M.M. on 01/06/2018 8:15 PM Dictated By: ERIC LANTIGUA DO 14 COPY TO: ELIJAH MILLER MD CHEST SINGLE (PORTABLE) [place] [address] Patient Name: MOJGAN CUMMINGS MR #: [id number] : 1950 Age/Sex: 67/F Req #: [id number] Adm Physician: Ordered by: JENN MILLER MD Report #: [id number] Location: ER Room/Bed: Procedure: [id number] DX/CHEST SINGLE (PORTABLE) E xam Date: 01/06/18 Exam Time: 1740 REPORT STATU S: Signed PROCEDURE: A single AP view of the chest. COMPARISON: None. INDICATIONS: SOB FINDINGS: Lines/tubes: None. Lungs: The lungs are well inflated and grossly clear. There is no evidence of pneu monia or pulmonary edema. Pleura: There is no pleural effusion or pneumot horax. Heart and mediastinum: Mild prominence of the cardiac silhouette, w hich may be partly due to AP projection. Pulmonary vasculature is normal. Bones: No acute bony abnormality. Degenerative changes in the left glenoh umeral joint. IMPRESSION: 1. No acute cardiopulmonary abnormalitie s. Og Turner M.D. Dictated by: Og Turner M.D. o lamonte 01/06/2018 at 18:41 Electronically approved by: Og Turner M.D. on 01/06/2018 at 18:41 Dictated By: OG TURNER MD Electro nically Signed By: OG TURNER MD on 01/06/181840 Transcribed By: DEN on 01/06/181840 COPY TO: JENN MILLER MD
[2020-02-10] MEDS ORDERED: LORAZEPAM INJ 2 MG/ML VIAL IV ONE (02:15)
--- NOTE | 2020-02-10 02:40 | Emergency Department Note ---
History of Present Illnes History of Present Illness Chief Complaint: Respiratory History of Present Illness This is a 70 year old female with trach who called ems for sob, ems r eports suctioning out a mucus plug and pt has been breathing fine since, pt also has a long h/o anxiety. . 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 Any updates have been documented here. Past Medical History Recent Fever: No Clinical Suspicion of Infectio: No New/Unexplained Change in Ment: No Past Medical History: Hypertension, Diabetes, Hypothyroidism, UTI's, Anemia, Anxiety, Depression, GERD Other Medical History: RESPIRATORY FAILURE C-DIFF TRACHEOMALACIA Past Surgical History: Hip Replacement Other Surgery: TRACHEOSTOMY (R) HIP REPAIR Social History Smoking Cessation: Never Smoker Alcohol Use: None Any Illegal Drug Use: No Other Last Tetanus: UTD Review of Systems Review of Systems Constitutional: no symptoms EENTM: no symptoms Cardiovascular: no symptoms Respiratory: as per HPI, dyspnea (that resolved after suctioning) Gastrointestinal: no symptoms Genitourinary: no symptoms Musculoskeletal: no symptoms Neurological: no symptoms Psychological: no symptoms Endocrine: no symptoms Hematological/Lymphatic: no symptoms Review of other systems All other systems reviewed and negative. Physical Exam Related Data Allergies: Coded Allergies: Penicillins (Verified Allergy, Unknown, 06/21/18) heparin (Verified Allergy, Unknown, 06/21/18) titanium (Verified Allergy, Unknown, 06/21/18) Triage Vital Signs Vital Signs Date Time Temp Pulse Resp B/P (MAP) Pulse Ox O2 Delivery O2 Flow Rate FiO2 02/10/20 02:21 98.2 82 16 114/58 100 Physical Exam CONSTITUTIONAL Constitutional: well-developed, well-nourished, other (anxious) HENT HENT: normocephalic, atraumatic, oropharynx clear/moist, nose normal HENT L/R: left ext ear normal, right ext ear normal EYES Eyes: PERRL, conjunctivae normal NECK Neck: ROM normal, other (trach present) PULMONARY Pulmonary: effort normal, breath sounds normal CARDIOVASCULAR Cardiovascular: regular rhythm, heart sounds normal, capillary refill normal, normal rate GASTROINTESTINAL Abdominal: soft, nontender, bowel sounds normal GENITOURINARY Genitourinary: exam deferred SKIN Skin: warm, dry MUSCULOSKELETAL Musculoskeletal: ROM normal NEUROLOGICAL Neurological: alert, oriented x 3, no gross motor or sensory deficits PSYCHOLOGICAL Psychological: mood/affect normal, judgement normal Results Laboratory Laboratory Laboratory Tests Test 02/10/20 02:40 White Blood Count 5.17 x10e3/uL (4.8-10.8) Red Blood Count 3.79 x10e6/uL (3.6-5.1) Hemoglobin 10.8 g/dL (12.0-16.0) Hematocrit 33.4 % (34.2-44.1) Mean Corpuscular Volume 88.1 fL (81-99) Mean Corpuscular Hemoglobin 28.5 pg (28-32) Mean Corpuscular Hemoglobin Concent 32.3 g/dL (31-35) Red Cell Distribution Width 12.5 % (11.7-14.4) Platelet Count 43 x10e3/uL (140-360) Neutrophils (%) (Auto) 62.0 % (38.7-80.0) Lymphocytes (%) (Auto) 26.7 % (18.0-39.1) Monocytes (%) (Auto) 6.4 % (4.4-11.3) Eosinophils (%) (Auto) 4.1 % (0.0-6.0) Basophils (%) (Auto) 0.6 % (0.0-1.0) Neutrophils # (Auto) 3.2 (2.1-6.9) Lymphocytes # (Auto) 1.4 (1.0-3.2) Monocytes # (Auto) 0.3 (0.2-0.8) Eosinophils # (Auto) 0.2 (0.0-0.4) Basophils # (Auto) 0.0 (0.0-0.1) Absolute Immature Granulocyte (auto 0.01 x10e3/uL (0-0.1) Sodium Level 141 mmol/L (136-145) Potassium Level 3.7 mmol/L (3.5-5.1) Chloride Level 109 mmol/L (98-107) Carbon Dioxide Level 21 mmol/L (22-29) Anion Gap 14.7 mmol/L (8-16) Blood Urea Nitrogen 22 mg/dL (7-26) Creatinine 0.71 mg/dL (0.57-1.11) Estimat Glomerular Filtration Rate > 60 ML/MIN (60-) BUN/Creatinine Ratio 31 (6-25) Glucose Level 86 mg/dL (74-118) Calcium Level 9.7 mg/dL (8.4-10.2) Total Bilirubin 0.3 mg/dL (0.2-1.2) Aspartate Amino Transf (AST/SGOT) 11 IU/L (5-34) Alanine Aminotransferase (ALT/SGPT) 9 IU/L (0-55) Alkaline Phosphatase 95 IU/L (40-150) Creatine Kinase 20 IU/L (29-168) Creatine Kinase MB 0.60 ng/mL (0-5.0) Troponin I < 0.001 ng/mL (0-0.300) B-Type Natriuretic Peptide 31.4 pg/mL (0-100) Total Protein 6.3 g/dL (6.5-8.1) Albumin 3.6 g/dL (3.5-5.0) Globulin 2.7 g/dL (2.3-3.5) Albumin/Globulin Ratio 1.3 (0.8-2.0) Lab results reviewed: Yes Laboratory comments PT HAS CHRONIC THROMBOCYTOPENIA Imaging Imaging results reviewed: Yes Impressions Procedure: [id number] DX/CHEST SINGLE (PORTABLE) Exam Date: 02/10/20 Exam Time: 309 REPORT STATUS: Signed EXAMINATION: CHEST SINGLE (PORTABLE) INDICATION: sob COMPARISON: Chest radiograph 11-19-2019. FINDINGS: TUBES and LINES: Tracheostomy cannula in stable position. LUNGS: Lungs are well inflated. There is no evidence of pneumonia or pulmonary edema. PLEURA: No pleural effusion or pneumothorax. HEART AND MEDIASTINUM: The cardiomediastinal silhouette is unremarkable. Tortuous thoracic aorta. BONES AND SOFT TISSUES: No acute osseous abnormality. Severe degenerative changes of bilateral shoulders. UPPER ABDOMEN: No free air under the diaphragm. IMPRESSION: No acute thoracic abnormality. Signed by: Dr. Shamir Adams MD on 02/10/2020 4:24 AM Procedures 12 Lead ECG Interpretation Pay Clerk: Interpreted by ED physician Rhythm: sinus rhythm (78) Rate: normal (78) QRS axis: normal Conduction: right bundle branch block (with 1st degree av block) ST segments normal: Yes T waves normal: Yes Other findings: no other findings Clinical Impression: abnormal ECG Critical Care Time Subsequent provider I assumed direction of critical care for this patient from another provider of my specialty. Assessment & Plan Reassessment Reassessment time: 05:13 Reassessment PT DOING WELL, NO LONGER SOB Assessment & Plan Final Impression: (1) Anxiety (2) Dyspnea Assessment & Plan pt with sob and anxiety, pt was suctioned by ems and mucus plug came out, pt's breathing improved, cbc, cmp, cxr, ekg, cardiac enzymes, ordered to eval for pneumonia, pulmonary edema, myocardial infarction. Depart Disposition: HOME, SELF-CARE Last Vital Signs Date Time Temp Pulse Resp B/P (MAP) Pulse Ox O2 Delivery O2 Flow Rate FiO2 02/10/20 02:21 98.2 82 16 114/58 100 Home Meds Active Scripts Fluconazole (FLUCONAZOLE) 100 Mg Tablet, 100 MG PO DAILY for 6 Days, TAB Prov:CAILINDAVID Calderon FOREIGN BANKNOTE TELLER TRADER 07/13/19 Ascorbic Acid (ASCORBIC ACID) 500 Mg Tablet, 500 MG PO BID for 30 Days, TAB Prov:CAILINDAVID Mancera FOREIGN BANKNOTE TELLER TRADER 07/13/19 Ferrous Sulfate (FERROUS SULFATE) 325 Mg Tablet.dr, 325 MG PO BID for 30 Days Prov:CAILINDAVID Calderon FOREIGN BANKNOTE TELLER TRADER 07/13/19 Folic Acid (FOLIC ACID) 1 Mg Tablet, 1 MG PO DAILY for 30 Days, TAB Prov:CAILINDAVID [employer]a FOREIGN BANKNOTE TELLER TRADER 08/14/18 Vancomycin Hcl (VANCOCIN HCL) 250 Mg Capsule, 250 MG PO Q6HR for 42 Days Prov:CAILINDAVID [employer]a FOREIGN BANKNOTE TELLER TRADER 08/04/18 Loperamide Hcl* (IMODIUM*) 2 Mg Cap, 2 MG PEG TID PRN for DIARRHEA, #20 CAP Prov:CAILINDAVID M [employer]EIGN BANKNOTE TELLER TRADER 08/04/18 Acetaminophen With Codeine (TYLENOL WITH CODEINE #3 TABLET) 1 Each Tablet, 300 MG PO Q6H for PAIN, #30 TAB Prov:CAILINDAVID M [employer]EIGN BANK[employer] TELLER TRADER 08/04/18 Levothyroxine Sodium (SYNTHROID) 75 Mcg Tab, 75 MCG PO DAILY@06, #30 TAB Prov:DAVID SIMEON FOREIGN BANKNOTE TELLER TRADER 06/28/18 Amitriptyline Hcl (AMITRIPTYLINE HCL) 25 Mg Tablet, 25 MG PO HS, #30 TAB Prov:DAVID SIMEON [employer]EIGN BANK[employer] TELLER TRADER 06/28/18 Allopurinol (ALLOPURINOL) 300 Mg Tablet, 100 MG PO DAILY, #30 TAB Prov:DAVID SIMEON 06/28/18 Lactobacillus Acidophilus (ACIDOPHILUS) 1 Each Tab.chew, 1 TAB PEG BID for 30 Days Prov:DAVID SIMEON 06/28/18 [mucomyst] No Conflict Check, 4 ML NEB BID PRN for THICK SECRETIONS for 30 Days 10% MIX WITH ALBUTEROL Prov:DAVID SIMEON 06/28/18 Clonidine Hcl (CATAPRES) 0.1 Mg Tablet, 0.1 MG PO Q8H PRN for sbp>160, #30 Prov:DAVID SIMEON [facility] 06/28/18 Insulin Aspart (NOVOLOG) 100 Units/1 Ml Inj, 0 SQ Q6H, #1 SLIDING SCALE: 150-200 3 UNITS 201-250 6 UNITS 251-300 9 UNITS 301-350+ 12 UNITS Prov:DAVID SIMEON 06/28/18 Potassium Chloride* (K DUR*) 10 Meq Tabcr, 20 MEQ PO DAILY, #30 Prov:DAVID SIMEON 06/28/18 Lorazepam (LORAZEPAM) 0.5 Mg Tablet, 0.5 MG PEG TID PRN for ANXIETY, #30 TAB Prov:DAVID SIMEON 06/28/18 Metoclopramide Hcl (REGLAN) 5 Mg Tablet, 5 MG PEG TID for 30 Days Prov:DAVID SIMEON [employer] BANK[employer] TELLER TRADER 06/28/18 Furosemide (LASIX) 40 Mg Tablet, 40 MG PO DAILY, #30 TAB Prov:DAVID SIMEON 06/28/18 Sitagliptin Phosphate (JANUVIA) 100 Mg Tablet, 50 MG PO DAILY, #30 TAB Prov:DAVID SIMEON 06/28/18 Metoprolol Tartrate (LOPRESSOR) 25 Mg Tab, 25 MG PO Q12HR for 30 Days, TAB Prov:DAVID SIMEON 03/09/18 Simethicone (SIMETHICONE) 80 Mg Chew, 80 MG PO PCHS PRN for GAS for 30 Days Prov:TRINIDAD WALKER NP 01/20/18 Levalbuterol Hcl (XOPENEX) 0.63 Mg/3 Ml Vial.neb, 0.63 MG INH RQ6H PRN for shorn arley of breath for 30 Days Prov:TRINIDAD WALKER NP 01/20/18 Ipratropium Mentor (IPRATROPIUM BROMIDE) 0.2 Mg/1 Ml Solution, 2.5 ML NEB RQ6H for 30 Days Prov:TRINIDAD WALKER NP 01/20/18 Balsam Felipe/Hampton Oil (VENELEX OINTMENT) 60 Gm Oint...g., 0 GM TP DAILY for 30 Days Prov:TRINIDAD WALKER NP 01/20/18 Acetaminophen (ACETAMINOPHEN) 325 Mg Tablet, 650 MG PO Q4H PRN for PAIN AND TEMPERATURE for 30 Days Prov:TRINIDAD WALKER NP 01/20/18 Medications in the ED Lorazepam 1 mg ONCE ONCE IV ; Start 02/10/20 at 02:15; Stop 02/10/20 at 02:23; Status DC [facility] CIFUENTES MD February 10, 2020 02:39
[2020-02-10 03:29] LABS: BASOPHILS % 0.6 % (0.0-1.0); EOSINOPHILS # (AUTO) 0.2 (0.0-0.4); EOSINOPHILS % 4.1 % (0.0-6.0); HEMATOCRIT 33.4 % (34.2-44.1); HEMOGLOBIN 10.8 g/dL (12.0-16.0); LYMPHOCYTES # (AUTO) 1.4 (1.0-3.2); LYMPHOCYTES % 26.7 % (18.0-39.1); MEAN CORPUSCULAR HEMOGLOBIN 28.5 pg (28-32); MEAN CORPUSCULAR HGB CONC 32.3 g/dL (31-35); MEAN CORPUSCULAR VOLUME 88.1 fL (81-99); MONOCYTES # (AUTO) 0.3 (0.2-0.8); MONOCYTES % 6.4 % (4.4-11.3); NEUTROPHILS # (AUTO) 3.2 (2.1-6.9); RED BLOOD COUNT 3.79 x10e6/uL (3.6-5.1); RED CELL DISTRIBUTION WIDTH 12.5 % (11.7-14.4)
[2020-02-10 03:38] LABS: PLATELET COUNT 43 x10e3/uL (140-360)
[2020-02-10 03:52] LABS: ALANINE AMINOTRANSFERASE 9 IU/L (0-55); ALBUMIN 3.6 g/dL (3.5-5.0); ALBUMIN/GLOBULIN RATIO 1.3 (0.8-2.0); ALKALINE PHOSPHATASE 95 IU/L (40-150); ANION GAP 14.7 mmol/L (8-16); BLOOD UREA NITROGEN 22 mg/dL (7-26); BUN/CREATININE RATIO 31 (6-25); CALCIUM 9.7 mg/dL (8.4-10.2); CARBON DIOXIDE 21 mmol/L (22-29); CHLORIDE 109 mmol/L (98-107); CREATINE KINASE 20 IU/L (29-168); CREATININE, SERUM 0.71 mg/dL (0.57-1.11); EST GLOMERULAR FILTRATION RATE > 60 ML/MIN (60-); GLUCOSE 86 mg/dL (74-118); POTASSIUM 3.7 mmol/L (3.5-5.1); SODIUM 141 mmol/L (136-145)
--- NOTE | 2020-02-10 04:27 | Diagnostic Imaging Report ---
EXAMINATION: CHEST SINGLE (PORTABLE) INDICATION: sob COMPARISON: Chest radiograph 11-19-2019. FINDINGS: TUBES and LINES: Tracheostomy cannula in stable position. LUNGS: Lungs are well inflated. There is no evidence of pneumonia or pulmonary edema. PLEURA: No pleural effusion or pneumothorax. HEART AND MEDIASTINUM: The cardiomediastinal silhouette is unremarkable. Tortuous thoracic aorta. BONES AND SOFT TISSUES: No acute osseous abnormality. Severe degenerative changes of bilateral shoulders. UPPER ABDOMEN: No free air under the diaphragm. IMPRESSION: No acute thoracic abnormality. Signed by: Dr. Shamir Adams MD on 02/10/2020 4:24 AM
--- NOTE | 2020-02-10 06:47 | NUR ---
[facility] ETA at this time 25 minutes.
[2020-02-10 11:47] LABS: PLATELET MORPHOLOGY COMMENT FEW LARGE; RBC MORPHOLOGY COMMENT NORMAL
[2020-02-10 11:48] LABS: PLATELET ESTIMATE MARKEDLY DECREASED
== END 2020-02-10 07:39 | disposition home or self-care (01) ==
LOC: ER 01:51
DX: R06.00 Dyspnea, unspecified (principal); F41.9 Anxiety disorder, unspecified; I10 Essential (primary) hypertension; E11.9 Type 2 diabetes mellitus without complications; E03.9 Hypothyroidism, unspecified; K21.9 Gastro-esophageal reflux disease without esophagitis; D64.9 Anemia, unspecified; Z93.0 Tracheostomy status
CPT/HCPCS: 36415; 71045; 80053; 82550; 82553; 83880; 84484; 85025; 96374; 99284; J2060

== ENCOUNTER 2020-02-29 15:59 | Emergency (ER) | payer MEDICARE ==
[~2020-02-29] VITALS: Ht 172.7 cm; Wt 62.1 kg
--- NOTE | 2020-02-29 16:22 | Emergency Department Note ---
History of Present Illnes History of Present Illness Chief Complaint: General Medicine Complaints History of Present Illness This is a 70 year old female brought by [facility] for evaluation of bleeding surrounding tracheostomy site after vigorous suctioning by spouse. . Historian: Patient, [employer] Pourer/EMS Arrival Mode: [facility] Treatment COMB SETTER: O2, See EMS Report Translator/Interpreter Required: No Onset (how long ago): second(s) (COMB SETTER) Radiation: Reports non-radiation Severity: mild Onset quality: sudden Duration (how long): hour(s) Progression: resolved Chronicity: new Context: Reports recent illness Relieving factors: none Exacerbating factors: none Associated symptoms: Reports denies other symptoms Treatments prior to arrival: none Past Medical/Family History Physician Review I have reviewed the patient's past medical and family history. Any updates have been documented here. Past Medical History Recent Fever: No Clinical Suspicion of Infectio: No New/Unexplained Change in Ment: No Past Medical History: Hypertension, Diabetes, Hypothyroidism, UTI's, Anemia, Anxiety, Depression, GERD Other Medical History: RESPIRATORY FAILURE C-DIFF TRACHEOMALACIA Past Surgical History: Hip Replacement Other Surgery: TRACHEOSTOMY (R) HIP REPAIR Other Last Tetanus: UTD Review of Systems Review of Systems Constitutional: Reports no symptoms EENTM: Reports no symptoms Cardiovascular: Reports no symptoms Respiratory: Reports no symptoms Gastrointestinal: Reports no symptoms Genitourinary: Reports no symptoms Musculoskeletal: Reports no symptoms Integumentary: Reports no symptoms Neurological: Reports no symptoms Psychological: Reports no symptoms Endocrine: Reports no symptoms Hematological/Lymphatic: Reports no symptoms Physical Exam Related Data Allergies: Coded Allergies: Penicillins (Verified Allergy, Unknown, 06/21/18) heparin (Verified Allergy, Unknown, 06/21/18) titanium (Verified Allergy, Unknown, 06/21/18) Triage Vital Signs Vital Signs Date Time Temp Pulse Resp B/P (MAP) Pulse Ox O2 Delivery O2 Flow Rate FiO2 02/29/20 16:01 97.2 81 22 106/56 95 Physical Exam CONSTITUTIONAL Constitutional: Present well-nourished; Absent distressed HENT HENT: Present normocephalic, Present atraumatic, Present oropharynx clear/moist, Present nose normal, Present other (hemostasis acheived at tracheostomy site. No signs of bleeding noted) HENT L/R: Present left ext ear normal, Present right ext ear normal EYES Eyes: Reports PERRL, Reports conjunctivae normal NECK Neck: Present ROM normal PULMONARY Pulmonary: Present effort normal, Present breath sounds normal CARDIOVASCULAR Cardiovascular: Present regular rhythm, Present heart sounds normal, Present capillary refill normal, Present normal rate GASTROINTESTINAL Abdominal: Present soft, Present nontender, Present bowel sounds normal GENITOURINARY Genitourinary: Present exam deferred SKIN Skin: Present warm, Present dry, Present pale MUSCULOSKELETAL Musculoskeletal: Present ROM normal NEUROLOGICAL Neurological: Present alert, Present oriented x 3, Present no gross motor or sensory deficits PSYCHOLOGICAL Psychological: Present mood/affect normal, Present judgement normal, Present other (anxiety) Assessment & Plan Medical Decision Making MDM assessed at bedside. no signs bleeding or tracheostomy obstruction. Plan to discharge Assessment & Plan Final Impression: (1) Tracheostomy malfunction (2) Anxiety Depart Disposition: HOME, SELF-CARE Last Vital Signs Date Time Temp Pulse Resp B/P (MAP) Pulse Ox O2 Delivery O2 Flow Rate FiO2 02/29/20 16:01 97.2 81 22 106/56 95 Home Meds Active Scripts Fluconazole (FLUCONAZOLE) 100 Mg Tablet, 100 MG PO DAILY for 6 Days, TAB Prov:CAILINDAVID POND Calderon [employer] 07/13/19 Ascorbic Acid (ASCORBIC ACID) 500 Mg Tablet, 500 MG PO BID for 30 Days, TAB Prov:CAILINDAVID [facility] 07/13/19 Ferrous Sulfate (FERROUS SULFATE) 325 Mg Tablet.dr, 325 MG PO BID for 30 Days Prov:DAVID SIMEON [employer] SERV[employer] MANAGER 07/13/19 Folic Acid (FOLIC ACID) 1 Mg Tablet, 1 MG PO DAILY for 30 Days, TAB Prov:CAILINDAVID [facility] 08/14/18 Vancomycin Hcl (VANCOCIN HCL) 250 Mg Capsule, 250 MG PO Q6HR for 42 Days Prov:DAVID SIMEON [employer]GER 08/04/18 Loperamide Hcl* (IMODIUM*) 2 Mg Cap, 2 MG PEG TID PRN for DIARRHEA, #20 CAP Prov:CAILINDAVID Calderon [employer] SERV[employer] MANAGER 08/04/18 Acetaminophen With Codeine (TYLENOL WITH CODEINE #3 TABLET) 1 Each Tablet, 300 MG PO Q6H for PAIN, #30 TAB Prov:CAILINDAVID Calderon [employer] SERV[employer] MANAGER 08/04/18 Levothyroxine Sodium (SYNTHROID) 75 Mcg Tab, 75 MCG PO DAILY@06, #30 TAB Prov:CAILINDAVID [employer] 06/28/18 Amitriptyline Hcl (AMITRIPTYLINE HCL) 25 Mg Tablet, 25 MG PO HS, #30 TAB Prov:DAVID SIMEON [employer] SERV[employer] MANAGER 06/28/18 Allopurinol (ALLOPURINOL) 300 Mg Tablet, 100 MG PO DAILY, #30 TAB Prov:DAVID SIMEON 06/28/18 Lactobacillus Acidophilus (ACIDOPHILUS) 1 Each Tab.chew, 1 TAB PEG BID for 30 Days Prov:DAVID SIMEON 06/28/18 [mucomyst] No Conflict Check, 4 ML NEB BID PRN for THICK SECRETIONS for 30 Days 10% MIX WITH ALBUTEROL Prov:DAVID SIMEON 06/28/18 Clonidine Hcl (CATAPRES) 0.1 Mg Tablet, 0.1 MG PO Q8H PRN for sbp>160, #30 Prov:DAVID SIMEON 06/28/18 Insulin Aspart (NOVOLOG) 100 Units/1 Ml Inj, 0 SQ Q6H, #1 SLIDING SCALE: 150-200 3 UNITS 201-250 6 UNITS 251-300 9 UNITS 301-350+ 12 UNITS Prov:DAVID SIMEON 06/28/18 Potassium Chloride* (K DUR*) 10 Meq Tabcr, 20 MEQ PO DAILY, #30 Prov:DAVID SIMEON 06/28/18 Lorazepam (LORAZEPAM) 0.5 Mg Tablet, 0.5 MG PEG TID PRN for ANXIETY, #30 TAB Prov:DAVID SIMEON [employer]NAGER 06/28/18 Metoclopramide Hcl (REGLAN) 5 Mg Tablet, 5 MG PEG TID for 30 Days Prov:DAVID SIMEON [employer] SERV[employer] MANAGER 06/28/18 Furosemide (LASIX) 40 Mg Tablet, 40 MG PO DAILY, #30 TAB Prov:DAVID SIMEON 06/28/18 Sitagliptin Phosphate (JANUVIA) 100 Mg Tablet, 50 MG PO DAILY, #30 TAB Prov:DAVID SIMEON 06/28/18 Metoprolol Tartrate (LOPRESSOR) 25 Mg Tab, 25 MG PO Q12HR for 30 Days, TAB Prov:DAVID SIMEON [employer] 03/09/18 Simethicone (SIMETHICONE) 80 Mg Chew, 80 MG PO PCHS PRN for GAS for 30 Days Prov:TRINIDAD WALKER NP 01/20/18 Levalbuterol Hcl (XOPENEX) 0.63 Mg/3 Ml Vial.neb, 0.63 MG INH RQ6H PRN for shorntess of breath for 30 Days Prov:TRINIDAD WALKER NP 01/20/18 Ipratropium [place] (IPRATROPIUM BROMIDE) 0.2 Mg/1 Ml Solution, 2.5 ML NEB RQ6H for 30 Days Prov:TRINIDAD WALKER NP 01/20/18 Balsam Fel[place] Oil (VENELEX OINTMENT) 60 Gm Oint...g., 0 GM TP DAILY for 30 Days Prov:TRINIDAD WALKER NP 01/20/18 Acetaminophen (ACETAMINOPHEN) 325 Mg Tablet, 650 MG PO Q4H PRN for PAIN AND TEMPERATURE for 30 Days Prov:TRINIDAD WALKER NP 01/20/18 CAITLYN ROMERO DO Feb 29, 2020 16:22
--- NOTE | 2020-02-29 16:40 | NUR ---
RESPIRATORY CALLED PER MD TO EVAL TRACH AND SUCTION. NO DISTRESS
--- OUTSIDE RECORDS SUMMARY | 2020-02-29 18:15 | XMS REPORT | Continuity of Care Document ---
Author Author Irene Chaudhary [employer] Exchange, MOJGAN Rader [facility] [employer] Information Exchange Address Unknown Phone Unavailable Care Team Providers Care Lsat Instructor Name Role Phone [facility] Unavailable Un available Problems Problem Status Onset Date Classification Date Reported Comments Source TRACH Active 06/27/2019 [facility] TRACHEOSTOMY STATUS Active 09/08/2018 [facility] Other specified diseases of upper respiratory tract 08/17/2018 03/01/2019 [facility] Chaudhary UNK Active 0 05/19/2016 [facility] Atherosclerotic heart disease of [place] coronary artery without angina pectoris 03/01/2019 [facility] Chaudhary Atherosclerosis of aorta 03/01/2019 [facility] Chaudhary Diaphragmatic hernia without obstruction or gangrene 03/01/2019 [facility] Chaudhary Arthritis (disorder) Active Problem 07/03/2019 [facility] Benign hypertension (disorder) Active Problem [facility] Diabetes mellitus (disorder) A ctive Problem [facility] Fibromyositis (disorder) Active Problem 07/03/2019 [facility] Gastroesophageal reflux disease (disorder) Active Problem 07/03/2019 [facility] Generalized obesity (disorder) Active Problem [facility] Heart murmur (finding) Active Problem 07/03/2019 [facility] Hypothyroidism (disorder) Acti ve Problem [facility] Irritable colon (disorder) Act [place] Problem [facility] UNSPECIFIED TRACHEOSTOMY COMPLICATION Active [facility] Medications Medication Details Route Status Patient Instructions Ordering Provider Order Date Source levothyroxine 175 mcg (0.175 mg) oral tablet 175 microgram = 1 tab, PO, Daily, # 15 tab, 0 Refill(s) Active 06/29/2019 [facility] Metoclopramide 5 MG Oral Tablet 5 mg = 1 tab, PO, Daily, # 30 tab, 0 Refill(s) No Longe r Active 06/29/2019 [facility] Clonidine Hydrochloride 0.1 MG Oral Tablet 160, 0 Refill(s) Active 06/29/2019 [facility] cefTRIAXone 1 g intravenous injection 1 gm, IV, 1G/100ML NS //INFUSE OVER 30 MIN IN Q12H, 0 Refill(s) No Longer Active 06/29/2019 [facility] sennosides, RESIDENTIAL Notes: (Same a s: Senokot) No Longer Active 06/29/2019 [facility] POLYETHYLENE GLYCOL 3350 Notes : Dissolve in 8 oz of water or juice. (Same as: Miralax) No Longer Active 06/28/2019 [facility] Allopurinol Notes: (Same as: Z yloprim) No Longer Active 06/28/2019 [facility] Furosemide 40 MG Oral Tablet [Lasix] Notes: (Same as: Lasix) May cause GI upset. Give with food or milk. No Longer Active 06/28/2019 [facility] Thyroxine Notes: Take 1 hour b efore or 2 hours after meal; Enteral feeds may interefere with the absorption of this medication. (Same as: Levothroid) No Longe r Active 06/28/2019 [facility] Sodium Chloride 0.9% IV 1,000 mL 1,000 mL, Rate: 75 ml/hr, Infuse over: 13.3 hr, Route: IV, Dosing Weight 81.818 kg, Total Volume: 1,000, Start date: 06/27/19 23:57:00 CDT, Duration: 30 day, Stop date: 07/27/19 23:56:00 INDUSTRIAL TECH INSTRUCTOR, 2, m2, 0 No Longer Active 06/28/2019 [facility] Oxycodone Hydrochloride 5 MG Oral Tablet Notes: (Same as: Roxicodone) No Longer Active 06/28/2019 [facility] Naloxone Notes: Same as Narcan No Longer Active 06/28/2019 [facility] Melatonin Notes: (Same as: [place] atonin) No Longer Active 06/28/2019 [facility] Amitriptyline Notes: (Same as: Elavil) No Longer Active 06/28/2019 [facility] ondansetron (ANES) Route: IV, Drug form: INJ, ONCE, Stop date: 06/27/19 19:26:00 CDT Inactive 06/28/2019 [facility] glycopyrrolate (ANES) Route: I V, Drug form: INJ, ONCE, Stop date: 06/27/19 19:26:00 CDT Inactive 06/28/2019 [facility] neostigmine (ANES) Route: IV, Drug form: INJ, ONCE, Stop date: 06/27/19 19:26:00 CDT Inactive 06/28/2019 [facility] n[facility] dexamethasone (ANES) Route: IV , Drug form: INJ, ONCE, Stop date: 06/27/19 18:53:00 CDT Inactive 06/27/2019 [facility] n[facility] fentaNYL (ANES) Route: IV, David g form: INJ, ONCE, Stop date: 06/27/19 18:38:00 CDT Inactive 06/27/2019 [facility] n[facility] lidocaine (ANES) Route: IV, Dr ug form: INJ, ONCE, Stop date: 06/27/19 18:33:00 CDT Inactive 06/27/2019 [facility] propofol (ANES) Route: IV, David g form: INJ, ONCE, Stop date: 06/27/19 18:33:00 CDT Inactive 06/27/2019 [facility] rocuronium (ANES) Route: IV, D rug form: INJ, ONCE, Stop date: 06/27/19 18:23:00 CDT Inactive 06/27/2019 [facility] phenylephrine (ANES) Route: IV , Drug form: INJ, ONCE, Stop date: 06/27/19 18:23:00 CDT Inactive 06/27/2019 [facility] Lactated Ringers Injection IV (ANES) 1000 mL Route: IV, Total Volume: 1,000, Start date: 06/27/19 17:32:00 CDT, Stop date: 06/27/19 18:32:00 CDT Inactive 06/27/2019 [facility] Dextrose 50% Syringe 12.5 gm, 25 mL, Route: IVP, Drug Form: INJ, Dosing Weight 81.818, kg, PRN, PRN Blood Glucose Results, Start date: 06/27/19 17:30:00 CDT, Duration: 30 day, Stop date: 07/27/19 16:29:00 INDUSTRIAL TECH INSTRUCTOR, 0 No Longer Active 06/27/2019 [facility] Glucagon 1 mg, Route: IM, Drug form: PDR/INJ, PRN, Dosing Weight 81.818, kg, PRN Blood Glucose Results, Start date: 06/27/19 17:30:00 CDT, Duration: 30 day, Stop date: 07/27/19 16:29:00 INDUSTRIAL TECH INSTRUCTOR, 0 No Longer Active 06/27/2019 [facility] Insulin regular Notes: (Same a s: Humulin R) Roll in palms of hands gently; Do not shake vigorously. WASTE: F/P - Black; E - Municipal Trash Bin Stable for 31 days at room temperature Expires in days from Date No Longer Active 06/27/2019 [facility] nt Dextrose 50% Syringe 12.5 gm, 25 mL, Route: IVP, Drug Form: INJ, Dosing Weight 81.818, kg, PRN, PRN Blood Glucose Results, Start date: 06/27/19 17:06:00 CDT, Duration: 30 day, Stop date: 07/27/19 16:05:00 INDUSTRIAL TECH INSTRUCTOR, 0 No Longer Active 06/27/2019 [facility] Glucagon 1 mg, Route: IM, Drug form: PDR/INJ, PRN, Dosing Weight 81.818, kg, PRN Blood Glucose Results, Start date: 06/27/19 17:06:00 CDT, Duration: 30 day, Stop date: 07/27/19 16:05:00 INDUSTRIAL TECH INSTRUCTOR, 0 No Longer Active 06/27/2019 [facility] Bisacodyl Notes: (Same As: Dul colax, Bisco-Lax) No Longer Active 06/27/2019 [facility] Ondansetron Notes: (Same as: Jacqui walter) MEDICATION WASTE Product Size: 4 mg Product Wasted: ___ mg No Longer Active 06/27/2019 [facility] Melatonin Notes: (Same as: [place] atonin) No Longer Active 06/27/2019 [facility] Acetaminophen Notes: Do not ex ceed 4 gm/day. (Same as: Tylenol) No Longer Active 06/27/2019 [facility] Saline Flush 0.9% 10 mL, Route : IVP, Drug Form: INJ, Dosing Weight 81.818, kg, PRN, PRN Line Flush, Start date: 06/27/19 15:12:00 CDT, Duration: 30 day, Stop date: 07/27/19 14:11:00 INDUSTRIAL TECH INSTRUCTOR, 0 No Longer Active 06/27/2019 [facility] potassium chloride Notes: (Prasanth e as: Potassium Chloride) Inactive 11/07/2018 [facility] Thyroxine Notes: Take 1 hour b efore or 2 hours after meal; Enteral feeds may interefere with the absorption of this medication. (Same as: Levothroid) Inactive 11/07/2018 [facility] Furosemide 40 MG Oral Tablet [Lasix] Notes: (Same as: Lasix) May cause GI upset. Give with food or milk. Inactive 11/07/2018 [facility] Allopurinol Notes: (Same as: Jacqui yloprim) Inactive 11/07/2018 [facility] Metformin hydrochloride 500 MG Oral Tablet Notes: (Same as: Glucophage) Take with meal Inactive 11/07/2018 [facility] Acetaminophen Notes: Max aceta minophen = 4000mg/day (4 gm/day). (Same as: Tylenol) Inactive 11/07/2018 [facility] Dicyclomine Notes: (Same as:Be ntyl) No Longer Active 11/07/2018 [facility] Amitriptyline Notes: (Same as: Elavil) No Longer Active 11/07/2018 [facility] tramadol hydrochloride 50 MG Oral Tablet Notes: Not to exceed 400mg/day. (Same As: Ultram) No Longer Active 11/06/2018 [facility] Docusate Notes: (Same as: Cola ce) No Longer Active 11/06/2018 [facility] Ondansetron Notes: (Same as: Jacqui walter) MEDICATION WASTE Product Size: 4 mg Product Wasted: ___ mg No Longer Active 11/06/2018 [facility] Promethazine Notes: Do not giv e IV push. (Same as: Phenergan) Inactive 11/06/2018 [facility] Ondansetron Notes: (Same as: Jacqui walter) MEDICATION WASTE Product Size: 4 mg Product Wasted: ___ mg Inactive 11/06/2018 [facility] Naloxone Notes: Same as Narcan Inactive 11/06/2018 [facility] Oxycodone Notes: (Same as: Libby icodone) Inactive 11/06/2018 [facility] Acetaminophen Notes: Max aceta minophen 4000 mg/day (4 gm/day). (Same as: Tylenol Extra Strength) Inactive 11/06/2018 [facility] nt Labetalol 10 mg, 2 mL, Route: IVP, Drug form: INJ, Q5Min, Dosing Weight 86.364, kg, PRN Elevated BP, Start date: 11/06/18 16:16:00 INDUSTRIAL TECH INSTRUCTOR, Duration: 5 doses or times, Stop date: 11/07/18 0:00:00 INDUSTRIAL TECH INSTRUCTOR Inactive 11/06/2018 [facility] esmolol Notes: (Same as: Brevi bloc) Inactive 11/06/2018 [facility] Flumazenil Notes: (Same as: Ro mazicon) Inactive 11/06/2018 [facility] glycopyrrolate (ANES) Route: I V, Drug form: INJ, ONCE, Stop date: 11/06/18 16:15:00 INDUSTRIAL TECH INSTRUCTOR Inactive 11/06/2018 [facility] ondansetron (ANES) Route: IV, Drug form: INJ, ONCE, Stop date: 11/06/18 16:15:00 INDUSTRIAL TECH INSTRUCTOR Inactive 11/06/2018 [facility] neostigmine (ANES) Route: IV, Drug form: INJ, ONCE, Stop date: 11/06/18 16:15:00 INDUSTRIAL TECH INSTRUCTOR Inactive 11/06/2018 [facility] dexamethasone (ANES) Route: IV , Drug form: INJ, ONCE, Stop date: 11/06/18 16:11:00 INDUSTRIAL TECH INSTRUCTOR Inactive 11/06/2018 [facility] n[facility] fentaNYL (ANES) Route: IV, David g form: INJ, ONCE, Stop date: 11/06/18 16:11:00 INDUSTRIAL TECH INSTRUCTOR Inactive 11/06/2018 [facility] nt propofol (ANES) Route: IV, David g form: INJ, ONCE, Stop date: 11/06/18 16:11:00 INDUSTRIAL TECH INSTRUCTOR Inactive 11/06/2018 [facility] rocuronium (ANES) Route: IV, D rug form: INJ, ONCE, Stop date: 11/06/18 15:56:00 INDUSTRIAL TECH INSTRUCTOR Inactive 11/06/2018 [facility] Lactated Ringers Injection IV (ANES) 1000 mL Route: IV, Total Volume: 1,000, Start date: 11/06/18 15:16:00 INDUSTRIAL TECH INSTRUCTOR, Stop date: 11/06/18 16:16:00 INDUSTRIAL TECH INSTRUCTOR Inactive 11/06/2018 [facility] sugammadex Notes: (Same as: Reese porras) No Longer Active 11/06/2018 [facility] 8 HR Acetaminophen 650 MG Extended Relea se Tablet [Tylenol] 1,300 mg = 2 tab, PO, Q8H, 0 Refill(s) On Hold 11/02/2018 [facility] potassium chloride 20 mEq oral tablet, extended releas e 20 mEq = 1 tab, PEG, Daily, # 30 tab, 3 Refill(s) On Hold 11/02/2018 [facility] Furosemide 40 MG Oral Tablet [Lasix] 40 mg = 1 tab, PEG, Daily, # 30 tab, 0 Refill(s) On Hold 11/02/2018 [facility] nt levothyroxine 150 mcg (0.15 mg) oral tablet 150 microgram = 1 tab, PEG, Daily, # 30 tab, 0 Refill(s) On Hold 11/02/2018 [facility] allopurinol 100 mg oral tablet 100 mg = 1 tab, PEG, Daily, # 60 tab, 0 Refill(s) O n Hold 11/02/2018 [facility] Albuterol 0.833 MG/ML / Ipratropium Brom [...] Stop date: 07/15/16 13:19:00 CDT Inactive 06/15/2016 [facility] Sodium Chloride 0.154 MEQ/ML Injectable Solution 500 mL, Rate: 25 ml/hr, Infuse over: 20 hr, Route: IV, Dosing Weight 152.273 kg, Total Volume: 500, Start date: 06/15/16 13:20:00 CDT, Duration: 30 day, Stop date: 07/15/16 13:19:00 CDT Inactive 06/15/2016 [facility] dicyclomine 20 mg oral tablet 20 mg = 1 tab, PO, QID, # 28 tab, 0 Refill(s) Active 06/14/2016 [facility] omeprazole 40 mg oral delayed release capsule 40 mg = 1 cap, PO, Daily, # 30 cap, 0 Refill(s) Active 06/14/2016 [facility] losartan 100 mg oral tablet 10 0 mg = 1 tab, PO, Daily, # 30 tab, 0 Refill(s) Active 06/14/2016 [facility] sitagliptin 100 MG Oral Tablet [Januvia] 100 mg = 1 tab, PO, Daily, # 30 tab, 0 Refill(s) Active 06/14/2016 [facility] amitriptyline 25 mg oral tablet 25 mg = 1 tab, PO, Bedtime, # 30 tab, 1 Refill(s) Active 06/14/2016 [facility] Metformin hydrochloride 500 MG Oral Tablet 1,000 mg = 2 tab, PO, BID-Meals, # 30 tab, 0 Refill(s) Active 06/14/2016 [facility] Allergies, Adverse Reactions, Alerts Substance Category Reaction Severity Reaction type Status Date Reported Comments Source penicillins Assertion Drug allergy Active [facility] heparin Assertion Drug allergy Active [facility] Other Environmental Allergy<sup>1</sup> Assertion Drug aller gy Active [facility] Immunizations No Data Provided for This Section Results Order Name Results Value Reference Range Date Interpretation Comments Source ELECTROLYTES AGAP 10.7 10.0 - 20.0 07/01/2019 [facility] ELECTROLYTES Glucose Lvl 102 70 - 99 07/01/2019 [facility] ELECTROLYTES BUN 26 7 - 22 07/01/2019 [facility] ELECTROLYTES Creatinine Lvl 0.8 0 0.50 - 1.40 07/01/2019 [facility] ELECTROLYTES Sodium Lvl 141 135 - 145 07/01/2019 [facility] ELECTROLYTES Potassium Lvl 3.7 3.5 - 5.1 07/01/2019 [facility] ELECTROLYTES Chloride Lvl 105 95 - 109 07/01/2019 [facility] ELECTROLYTES CO2 29 24 - 32 07/01/2019 [facility] ELECTROLYTES Calcium Lvl 9.5 8.5 - 10.5 07/01/2019 [facility] ELECTROLYTES eGFR 74 07/01/2019 Result Comment: [...] should be multiplied by the estimated BMI. [facility] HEMATOLOGY Segs 65.2 45.0 - 75.0 07/01/2019 [facility] HEMATOLOGY Lymphocytes 23.3 20.0 - 40.0 07/01/2019 [facility] HEMATOLOGY Monocytes 7.5 2.0 - 12.0 07/01/2019 [facility] HEMATOLOGY Eosinophils 3.4 0.0 - 4.0 07/01/2019 [facility] HEMATOLOGY Basophils 0.6 0.0 - 1.0 07/01/2019 [facility] HEMATOLOGY Neutrophils # 4.7 1.5 - 8.1 07/01/2019 [facility] HEMATOLOGY Lymphocytes # 1.7 1.0 - 5.5 07/01/2019 [facility] HEMATOLOGY Monocytes # 0.5 0.0 - 0.8 07/01/2019 [facility] HEMATOLOGY Eosinophils # 0.2 0.0 - 0.5 07/01/2019 [facility] HEMATOLOGY WBC 7.3 3.7 - 10.4 07/01/2019 [facility] HEMATOLOGY RBC 3.85 4.20 - 5.40 07/01/2019 [facility] HEMATOLOGY Hgb 11.8 12.0 - 16.0 07/01/2019 [facility] HEMATOLOGY Hct 35.6 36.0 - 48.0 07/01/2019 [facility] HEMATOLOGY MCV 92.6 80.0 - 98.0 07/01/2019 [facility] HEMATOLOGY MCH 30.7 27.0 - 31.0 07/01/2019 [facility] HEMATOLOGY MCHC 33.1 32.0 - 36.0 07/01/2019 [facility] HEMATOLOGY RDW 12.2 11.5 - 14.5 07/01/2019 [facility] HEMATOLOGY Platelet 21 133 - 450 07/01/2019 Result Comment: Critical Result(s) farley d to Kristie Lindsay at 07/01/2019 02:23 by Le. Julien back [place]. [facility] HEMATOLOGY MPV 12.4 7.4 - 10.4 07/01/2019 [facility] HEMATOLOGY Segs 55.9 45.0 - 75.0 06/30/2019 [facility] HEMATOLOGY Lymphocytes 32.5 20.0 - 40.0 06/30/2019 [facility] HEMATOLOGY Monocytes 7.0 2.0 - 12.0 06/30/2019 [facility] HEMATOLOGY Eosinophils 4.2 0.0 - 4.0 06/30/2019 [facility] HEMATOLOGY Basophils 0.4 0.0 - 1.0 06/30/2019 [facility] HEMATOLOGY Neutrophils # 2.7 1.5 - 8.1 06/30/2019 [facility] HEMATOLOGY Lymphocytes # 1.6 1.0 - 5.5 06/30/2019 [facility] HEMATOLOGY Monocytes # 0.3 0.0 - 0.8 06/30/2019 [facility] HEMATOLOGY Eosinophils # 0.2 0.0 - 0.5 06/30/2019 [facility] HEMATOLOGY WBC 4.8 3.7 - 10.4 06/30/2019 [facility] HEMATOLOGY RBC 3.49 4.20 - 5.40 06/30/2019 [facility] HEMATOLOGY Hgb 10.8 12.0 - 16.0 06/30/2019 [facility] HEMATOLOGY Hct 32.5 36.0 - 48.0 06/30/2019 [facility] HEMATOLOGY MCV 93.0 80.0 - 98.0 06/30/2019 [facility] HEMATOLOGY MCH 30.9 27.0 - 31.0 06/30/2019 [facility] HEMATOLOGY MCHC 33.2 32.0 - 36.0 06/30/2019 [facility] HEMATOLOGY RDW 12.2 11.5 - 14.5 06/30/2019 [facility] HEMATOLOGY Platelet 19 133 - 450 06/30/2019 Result Comment: Critical Result(s) farley d to Zhen Walter at 06/30/2019 06:06 byJw Read back [place]. [facility] HEMATOLOGY MPV 11.8 7.4 - 10.4 06/30/2019 [facility] ANEMIA STUDY Ferritin Lvl 595 5 - 204 06/28/2019 [facility] ANEMIA STUDY Folate Lvl 46.0 >=3.0 ng/mL 06/28/2019 [facility] ANEMIA STUDY Vitamin B12 Lvl 455 254 - 1320 06/28/2019 [facility] CHEM PANEL LDH 203 98 - 192 06/28/2019 [facility] CHEM PANEL Glucose Lvl 78 70 - 99 06/28/2019 [facility] CHEM PANEL BUN 14 7 - 22 06/28/2019 [facility] CHEM PANEL Creatinine Lvl 0.78 0.50 - 1.40 06/28/2019 [facility] CHEM PANEL Sodium Lvl 141 135 - 145 06/28/2019 [facility] CHEM PANEL Potassium Lvl 3.5 3.5 - 5.1 06/28/2019 [facility] CHEM PANEL Chloride Lvl 103 95 - 109 06/28/2019 [facility] CHEM PANEL CO2 27 24 - 32 06/28/2019 [facility] CHEM PANEL Calcium Lvl 9.0 8.5 - 10.5 06/28/2019 [facility] CHEM PANEL Total Protein 6.7 6.4 - 8.4 06/28/2019 [facility] CHEM PANEL Albumin Lvl 3.7 3.5 - 5.0 06/28/2019 [facility] CHEM PANEL ALT 15 0 - 65 06/28/2019 [facility] CHEM PANEL AST 13 0 - 37 06/28/2019 [facility] CHEM PANEL Alk Phos 112 39 - 136 06/28/2019 [facility] CHEM PANEL Bili Total 0.4 0.2 - 1.3 06/28/2019 [facility] CHEM PANEL eGFR 77 06/28/2019 Result [...] should be multiplied by the estimated BMI. [facility] CHEM PANEL AGAP 14.5 10.0 - 20.0 06/28/2019 [facility] CHEM PANEL B/C Ratio 18 6 - 25 06/28/2019 [facility] CHEM PANEL Globulin 3.0 2.7 - 4.2 06/28/2019 [facility] CHEM PANEL A/G Ratio 1.2 0.7 - 1.6 06/28/2019 [facility] HEMATOLOGY WBC 9.3 3.7 - 10.4 06/28/2019 [facility] HEMATOLOGY RBC 3.77 4.20 - 5.40 06/28/2019 [facility] HEMATOLOGY Hgb 11.5 12.0 - 16.0 06/28/2019 [facility] HEMATOLOGY Hct 35.1 36.0 - 48.0 06/28/2019 [facility] HEMATOLOGY MCV 92.9 80.0 - 98.0 06/28/2019 [facility] HEMATOLOGY MCH 30.6 27.0 - 31.0 06/28/2019 [facility] HEMATOLOGY MCHC 32.9 32.0 - 36.0 06/28/2019 [facility] HEMATOLOGY RDW 12.4 11.5 - 14.5 06/28/2019 [facility] HEMATOLOGY Platelet 31 133 - 450 06/28/2019 [facility] HEMATOLOGY MPV 15.5 7.4 - 10.4 06/28/2019 [facility] HEMATOLOGY Segs 70.1 45.0 - 75.0 06/28/2019 [facility] HEMATOLOGY Lymphocytes 22.0 20.0 - 40.0 06/28/2019 [facility] HEMATOLOGY Monocytes 5.6 2.0 - 12.0 06/28/2019 [facility] HEMATOLOGY Eosinophils 2.0 0.0 - 4.0 06/28/2019 [facility] HEMATOLOGY Basophils 0.3 0.0 - 1.0 06/28/2019 [facility] HEMATOLOGY Neutrophils # 6.5 1.5 - 8.1 06/28/2019 [facility] HEMATOLOGY Lymphocytes # 2.1 1.0 - 5.5 06/28/2019 [facility] HEMATOLOGY Monocytes # 0.5 0.0 - 0.8 06/28/2019 [facility] HEMATOLOGY Eosinophils # 0.2 0.0 - 0.5 06/28/2019 [facility] IMMUNOLOGY Haptoglobin 137 16 - 200 06/28/2019 [facility] IMMUNOLOGY HIV Ag/Ab 4th Gen Negat brooklynn *NA* (06/28/19 6:50 PM) Negative 06/28/2019 [facility] IMMUNOLOGY Hep C Ab Negat brooklynn *NA* (06/28/19 6:50 PM) Negative 06/28/2019 [facility] IMMUNOLOGY Hep B Core IgM Negat brooklynn *NA* (06/28/19 6:50 PM) Negative 06/28/2019 [facility] IMMUNOLOGY Hep A IgM Negat brooklynn *NA* (06/28/19 6:50 PM) Negative 06/28/2019 [facility] IMMUNOLOGY Hep Bs Ag Negat brooklynn *NA* (06/28/19 6:50 PM) Negative 06/28/2019 [facility] [facility] METAL Copper Lvl 111 72 - 166 06/28/2019 Result Comment: This test was developed and its performance characteristics
determined by [employer]. It has not been cleared or
approved by the Food and Drug Administration.
Detection Limit = 5
Performed At: [facility]
[address], [place] [id number]
Jamie Santoyo MD Ph:[phone] [facility] HEMATOLOGY PB Smear Path Perip heral blood smear examination: Normocytic normochromic anemia. Schistocytes are not increased. Adequate WBCs with minimally reactive PMNs. Marked thrombocytopenia with presence of rare large forms. CPT: 15222 06/28/2019 [facility] HEMATOLOGY Platelet Count Blue Top 2 0 133 - 450 06/28/2019 Result Comment: Critical Result(s) farley d to Zhen Swann at 06/27/2019 21:46 by JA. Read back OK. [facility] BLOOD BANK RESULTS Path AB Blood Bank Physician Service The patient is a 69 year old female, presenting for complication of tracheostomy. No recent transfusion history. 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 This antibody is directed against [place] antigen of the [employer] blood group system. [...] with the resident, Dr. Becerra's interpretation. CPT: 63478- GC 06/27/2019 [facility] BLOOD BANK RESULTS ABO/Rh A NEG 06/27/2019 [facility] BLOOD BANK RESULTS Antibody Scrn Positive 4 (06/27/19 3:54 PM) 06/27/2019 Result Comment: 06/27/2019 1 7:27 [id number]
"Significant Findings of POS ABSC_ called to _Hang FUCHS at _06/27/2019 17:25_ by JNY__. Read Back OK" [facility] BLOOD BANK RESULTS AB Int Anti-K 06/27/2019 [facility] CHEM PANEL Glucose Lvl 101 70 - 99 06/27/2019 [facility] CHEM PANEL BUN 15 7 - 22 06/27/2019 [facility] CHEM PANEL Creatinine Lvl 0.79 0.50 - 1.40 06/27/2019 [facility] CHEM PANEL Sodium Lvl 141 135 - 145 06/27/2019 [facility] CHEM PANEL Potassium Lvl 4.0 3.5 - 5.1 06/27/2019 [facility] CHEM PANEL Chloride Lvl 104 95 - 109 06/27/2019 [facility] CHEM PANEL CO2 26 24 - 32 06/27/2019 [facility] CHEM PANEL Calcium Lvl 10.5 8.5 - 10.5 06/27/2019 [facility] CHEM PANEL eGFR 76 06/27/2019 Result [...] should be multiplied by the estimated BMI. [facility] CHEM PANEL AGAP 15.0 10.0 - 20.0 06/27/2019 [facility] HEMATOLOGY INR 0.99 0.85 - 1.17 06/27/2019 [facility] HEMATOLOGY PT 12.9 12.0 - 14.7 06/27/2019 [facility] HEMATOLOGY PTT 28.6 22.9 - 35.8 06/27/2019 [facility] HEMATOLOGY RBC Morph Vale l (06/27/19 3:54 PM) Normal 06/27/2019 [facility] HEMATOLOGY Plt Morph Vale l (06/27/19 3:54 PM) Normal 06/27/2019 [facility] ELECTROLYTES AGAP 12.9 10.0 - 20.0 11/06/2018 [facility] ELECTROLYTES CO2 18 24 - 32 11/06/2018 [facility] ELECTROLYTES Calcium Lvl 9.9 8.5 - 10.5 11/06/2018 [facility] ELECTROLYTES Potassium Lvl 4.9 3.5 - 5.1 11/06/2018 [facility] ELECTROLYTES Chloride Lvl 109 95 - 109 11/06/2018 [facility] ELECTROLYTES Creatinine Lvl 0.8 0 0.50 - 1.40 11/06/2018 [facility] ELECTROLYTES Sodium Lvl 135 135 - 145 11/06/2018 [facility] ELECTROLYTES Glucose Lvl 94 70 - 99 11/06/2018 [facility] ELECTROLYTES BUN 36 7 - 22 11/06/2018 [facility] ELECTROLYTES eGFR 75 11/06/2018 Result Comment: [...] should be multiplied by the estimated BMI. [facility] ELECTROLYTES Chloride Lvl 103 95 - 109 06/14/2016 [facility] ELECTROLYTES Potassium Lvl 5.1 3.5 - 5.1 06/14/2016 [facility] ELECTROLYTES AGAP 11.1 10.0 - 20.0 06/14/2016 [facility] ELECTROLYTES Calcium Lvl 9.2 8.5 - 10.5 06/14/2016 [facility] ELECTROLYTES CO2 26 24 - 32 06/14/2016 [facility] ELECTROLYTES eGFR 76 06/14/2016 Result Comment: The [...] should be multiplied by the estimated BMI. [facility] ELECTROLYTES Creatinine Lvl 0.8 0 0.50 - 1.40 06/14/2016 [facility] ELECTROLYTES BUN 11 7 - 22 06/14/2016 [facility] ELECTROLYTES Sodium Lvl 135 135 - 145 06/14/2016 [facility] ELECTROLYTES Glucose Lvl 112 70 - 99 06/14/2016 [facility] Pathology Reports No Data Provided for [...] the shoulder s and thoracic spine. 06/29/2019 [facility] Abdomen complete US EXAM: US A [...] component of chronic renal parenchymal disease. 06/29/2019 [facility] Esophagus BA swallow function video DX [...] of different consistencies. Thin barium: Deep penetration. Kenyon barium: Deep penetration Pudding barium: Normal. Solid with barium: Normal. IMPRESSION: 1. Deep penetration with thin and necta r consistency barium. 2. Please also see detailed chart note by speech pathology. 06/28/2019 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 COMPARISON: None. TECHNIQUE: Oral barium contrast of differing consistencies was given to the patient to assess swallowing mechanism. The study was performed in conjunction with speech pathology. FLUOROSCOPY TIME: 38 seconds Skin dose: 2.1 mGy DISCUSSION: The patient was given barium contrast of different consistencies. Thin barium: There was aspiration with nonproductive cough with thin consistency barium by spoon. Kenyon barium: There was aspiration with nonproductive cough with nectar consistency barium by spoon. Puree barium: No evidence of penetration or aspiration with puree consistency. IMPRESSION: 1. Aspiration with thin and nectar cons istencies. 2. Please also see detailed chart note by speech pathology. 11/07/2018 [facility] Chest w contrast CT EXAM: CT CHEST WITH CONTRAST DATE: 08/11/2018 at 4:27 PM INDUSTRIAL TECH INSTRUCTOR INDICATION: - J39.8 Other specified diseases of [...] Source Temperature Oral (F) 97.6 F 07/01/2019 [facility] Heart Rate 68 07/01/2019 [facility] Systolic (mm Hg) 121 07/01/2019 [facility] Diastolic (mm Hg) 78 07/01/2019 [facility] Temperature Oral (F) 97.6 F 07/01/2019 [facility] Heart Rate 106 07/01/2019 [facility] Systolic (mm Hg) 129 07/01/2019 [facility] Diastolic (mm Hg) 76 07/01/2019 [facility] Temperature Oral (F) 100 F 07/01/2019 [facility] Heart Rate 92 07/01/2019 [facility] Respitory Rate 18 07/01/2019 [facility] Systolic (mm Hg) 106 07/01/2019 [facility] Diastolic (mm Hg) 62 07/01/2019 [facility] Respitory Rate 18 06/30/2019 [facility] Respitory Rate 20 06/30/2019 [facility] Height 172.72 cm 06/29/2019 [facility] Height 172.72 cm 06/29/2019 [facility] Height 172.72 cm 06/28/2019 [facility] Weight 81.818 06/28/2019 [facility] BMI Calculated 27.43 06/28/2019 [facility] Weight 81.818 06/27/2019 [facility] Temperature Oral (F) 97.2 F 11/07/2018 [facility] Heart Rate 61 11/07/2018 [facility] Systolic (mm Hg) 98 11/07/2018 [facility] Diastolic (mm Hg) 61 11/07/2018 [facility] Respitory Rate 18 11/07/2018 [facility] Heart Rate 70 11/07/2018 [facility] Temperature Oral (F) 97.5 F 11/07/2018 [facility] Systolic (mm Hg) 104 11/07/2018 [facility] Diastolic (mm Hg) 64 11/07/2018 [facility] Respitory Rate 20 11/07/2018 [facility] Systolic (mm Hg) 134 11/07/2018 [facility] Diastolic (mm Hg) 72 11/07/2018 [facility] Respitory Rate 21 11/07/2018 [facility] Temperature Oral (F) 98.3 F 11/07/2018 [facility] BMI Calculated 28.12 11/06/2018 [facility] Weight 86.364 11/06/2018 [facility] Heart Rate 122 11/06/2018 [facility] Height 175.26 cm 11/02/2018 [facility] Respitory Rate 23 06/15/2016 [facility] Systolic (mm Hg) 134 06/15/2016 [facility] Diastolic (mm Hg) 88 06/15/2016 [facility] Respitory Rate 16 06/15/2016 [facility] Systolic (mm Hg) 113 06/15/2016 [facility] Diastolic (mm Hg) 71 06/15/2016 [facility] Respitory Rate 22 06/15/2016 [facility] Systolic (mm Hg) 113 06/15/2016 [facility] Diastolic (mm Hg) 71 06/15/2016 [facility] Temperature Oral (F) 98.9 F 06/14/2016 [facility] Heart Rate 80 06/14/2016 [facility] Height 172.72 cm 06/14/2016 [facility] BMI Calculated 51.04 06/14/2016 [facility] Weight 152.273 06/14/2016 [facility] Encounters Location Location Details Encounter Type Encounter Number Reason For Visit Attending Provider ADM Date DC Date Status Source [facility] Bedded Outpatient [id number] Joseph Hoffman 06/15/2016 06/15/2016 [facility] Outpatient [facility] Services [id number] 00 Brayden Downingseth 08/11/2018 08/12/2018 [facility] Observation [id number] Sally Neff 11/07/2018 11/07/2018 [facility] Inpatient [id number] Paulie Silva 06/27/2019 07/01/2019 [facility] Procedures Procedure Code Date Perfomer Comments Source Hip joint operations [id number] [facility] replacement<sup>1</sup> 39 [id number] [id number] PEG - Percutaneous endoscopic gastrostomy [id number] [facility] Ch[facility] Tracheostomy [id number] [facility] Chaudh[facility] Assessment and Plan [...] 06/27 with ENT. She was seen by RACING MANAGER and dysphagia diet adjusted. She was also [...] Hold metformin; SSI 5.Fibromyalgia(M79.7) Continue amitriptyline 6.Dysphagia(R13.10) RACING MANAGER s/p MBS for ground with nectar. Patient [...] consult Extracted from:Title: Hematology Consult Note Author: Smooth Shepherd MD Date: 06/29/19 #Thrombocytopenia of undetermined etiology - No clinical evidence of bleeding and n o history of bleeding. Absent fever. - Clinically no splenomegaly. US showing borderlinehepatosplenomegaly. -Negativehepatitis panel and HIV. Negati vealcohol abuse history. - Seems that thrombocytopenia has been p resent for long time and patient is following with outpatient gericare aide. - Review of peripheral blood smear revea [...] to continue to follow up with her gericare aide. Patient was staffed withhematology attending physician, Dr.Juneja POSADAS. Yasmin Suero MD PGY2 - Internal Medicine [facility] | [facility] e-mail: [email or web address]| pager: [phone] TEACHING PHYSICIAN ADDENDUM. I saw and personally [...] 06/27/19 17:06:00 CDT, Status: [facility] Expected [facility]: 2 Midnights, Paulie Silva MD, [...] Duration: 30 day, Stop date: 07/26/19 21:00:00 INDUSTRIAL TECH INSTRUCTOR, 0 6.Dysphagia(R13.10) When patient is cleared for [...] Duration: 30 day, Stop date: 07/27/19 9:00:00 INDUSTRIAL TECH INSTRUCTOR, 0 11.Irritable bowel syndrome (IBS)(K58.9) Continue amitriptyline and a bowel regimen while on narcotics for pain. Ordered: amitriptyline, 25 mg, 1 tab, Route: PEG, Drug form: TAB, Bedtime, Dosing Weight 81.818, kg, Start date: 06/27/19 21:00:00 CDT, Duration: 30 day, Stop date: 07/26/19 21:00:00 INDUSTRIAL TECH INSTRUCTOR, 0 SCD/teds Home with home health trach supplies pending ENT clearance. Likely 2 midnights. Full admission. Addendum by Jose M Jose MD on 06/28/2019 00:33 CDT Contacted [facility] and unable to provide updated med list. They believe pt switched over to mail order Rx as her prescriptions are all out-of-date but they do confirm a majority of current list. Lasix is uncertain. 07/01/2019 [facility] Extracted from:Title: ORL/HNS BAND TEACHER note Author: Tamara Caro BAND TEACHER Date: 11/07/18 BAND TEACHER was called to BS by RN 2/ [...] planning as appropriate.RN and CN updated. 11/07/2018 [facility] Plan of Care No Data Provided for This Section Social History Social History Date Source Social History TypeResponse Alcohol Past Smoking Status Never smoker; Exposure to Tobacco Smoke None; Cigarette Smoking Last 365 Days No; Reg Smoking Cessation Counseling No entered on: 06/27/19 06/28/2019 [facility] Social History TypeResponse Alcohol Past Smoking [...]
== END 2020-02-29 17:46 | disposition home or self-care (01) ==
LOC: ER 16:13
DX: J95.03 Malfunction of tracheostomy stoma (principal); F41.9 Anxiety disorder, unspecified; E11.9 Type 2 diabetes mellitus without complications
CPT/HCPCS: 99284

== ENCOUNTER 2020-05-16 19:48 | Emergency (ER) | payer MEDICARE ==
[~2020-05-16] VITALS: Ht 172.7 cm; Wt 62.1 kg
[2020-05-16] MEDS ORDERED: LORAZEPAM INJ 2 MG/ML VIAL IM ONE (20:15)
--- NOTE | 2020-05-16 21:33 | Emergency Department Note ---
History of Present Illnes History of Present Illness Chief Complaint: Respiratory History of Present Illness This is a 70 year old female with trach presents from home via ems f or sob and anxiety, pt has multiple visits to this er for same, denies cough, denies fever, states she is very anxious. Historian: Patient Arrival Mode: [place] Onset (how long ago): hour(s) (4) Location: all over Quality: anxiety sob Radiation: Reports non-radiation Severity: moderate Onset quality: sudden Duration (how long): hour(s) (4) Timing of current episode: constant Progression: worsening Chronicity: recurrent Context: Denies recent illness, Denies recent surgery, Denies trauma/injury Relieving factors: none Exacerbating factors: none Associated symptoms: Reports denies other symptoms Treatments prior to arrival: none Past Medical/Family History Physician Review I have reviewed the patient's past medical and family history. Any updates have been documented here. Past Medical History Recent Fever: No Clinical Suspicion of Infectio: No New/Unexplained Change in Ment: No Past Medical History: Hypertension, Diabetes, Hypothyroidism, UTI's, Anemia, Anxiety, Depression, GERD Other Medical History: RESPIRATORY FAILURE C-DIFF TRACHEOMALACIA Past Surgical History: Hip Replacement Other Surgery: TRACHEOSTOMY (R) HIP REPAIR Social History Smoking Cessation: Never Smoker Counseling Performed: No Alcohol Use: None Any Illegal Drug Use: No Other Last Tetanus: UTD Any Pre-Existing Lines (PICC,: No Review of Systems Review of Systems Constitutional: Reports no symptoms EENTM: Reports no symptoms Cardiovascular: Reports no symptoms Respiratory: Reports as per HPI Gastrointestinal: Reports no symptoms Genitourinary: Reports no symptoms Musculoskeletal: Reports no symptoms Integumentary: Reports no symptoms Neurological: Reports no symptoms Psychological: Reports no symptoms Endocrine: Reports no symptoms Hematological/Lymphatic: Reports no symptoms Physical Exam Related Data Allergies: Coded Allergies: Penicillins (Verified Allergy, Unknown, 06/21/18) heparin (Verified Allergy, Unknown, 06/21/18) titanium (Verified Allergy, Unknown, 06/21/18) Triage Vital Signs Vital Signs Date Time Temp Pulse Resp B/P (MAP) Pulse Ox O2 Delivery O2 Flow Rate FiO2 05/16/20 19:55 98.2 88 20 140/99 100 Trach Collar Vital signs reviewed: Yes Physical Exam CONSTITUTIONAL Constitutional: Present well-developed, Present well-nourished, Present other (pt very anxious on arrival) HENT HENT: Present normocephalic, Present atraumatic, Present oropharynx clear/moist, Present nose normal HENT L/R: Present left ext ear normal, Present right ext ear normal EYES Eyes: Reports PERRL, Reports conjunctivae normal NECK Neck: Present ROM normal, Present other (trach present, no mucous production) PULMONARY Pulmonary: Present effort normal, Present breath sounds normal CARDIOVASCULAR Cardiovascular: Present regular rhythm, Present heart sounds normal, Present capillary refill normal, Present normal rate GASTROINTESTINAL Abdominal: Present soft, Present nontender, Present bowel sounds normal GENITOURINARY Genitourinary: Present exam deferred SKIN Skin: Present warm, Present dry MUSCULOSKELETAL Musculoskeletal: Present ROM normal NEUROLOGICAL Neurological: Present alert, Present oriented x 3, Present no gross motor or sensory deficits PSYCHOLOGICAL Psychological: Present mood/affect normal, Present judgement normal Results Imaging Imaging results reviewed: Yes Impressions Procedure: [id number] DX/CHEST SINGLE (PORTABLE) Exam Date: 05/16/20 Exam Time: 2019 REPORT STATUS: Signed EXAMINATION: CHEST SINGLE (PORTABLE) INDICATION: Shortness of breath. COMPARISON: Multiple prior chest radiograph including most recent on 02/10/2020. FINDINGS: TUBES and LINES: Tracheostomy tube which terminates approximately 3.5 cm above the marlyn. LUNGS: Normal lung volumes. Lungs are clear. No consolidations. There are scattered calcified granulomas which are unchanged. PLEURA: No pleural effusion or pneumothorax. HEART AND MEDIASTINUM: The cardiomediastinal silhouette is unremarkable. BONES AND SOFT TISSUES: No acute osseous lesion. Soft tissues are unremarkable. UPPER ABDOMEN: No free air under the diaphragm. IMPRESSION: No acute thoracic radiographic abnormality. Signed by: Dawn Do MD on 05/16/2020 9:36 PM Dictated By: DAWN DO MD 35 Transcribed By: BAMBI on 05/16/202135 COPY TO: PHOENIX CIFUENTES MD~ Procedures 12 Lead ECG Interpretation ECG Interpretation : ECG: ECG 1 Condominium Manager: Interpreted by ED physician Date: May 16, 2020 Time: 20:02 Prior ECG tracings: reviewed Rhythm: sinus rhythm Rate: normal BPM: 77 QRS axis: normal Conduction: incomplete RBBB ST segments normal: Yes T waves normal: Yes Q waves: V1 Clinical Impression: abnormal ECG Additional Comments ekg unchanged from previous Assessment & Plan Medical Decision Making MDM pt with sob and anxiety cxr ordered to eval for pneumonia, ativan 1 mg im ordered Reassessment Reassessment time: 21:46 Reassessment pt symptoms resolved after receiving ativan 1 mg im Assessment & Plan Final Impression: (1) Anxiety Depart Disposition: HOME, SELF-CARE Last Vital Signs Date Time Temp Pulse Resp B/P (MAP) Pulse Ox O2 Delivery O2 Flow Rate FiO2 05/16/20 19:55 98.2 88 20 140/99 100 Trach Collar Home Meds Active Scripts Fluconazole (FLUCONAZOLE) 100 Mg Tablet, 100 MG PO DAILY for 6 Days, TAB Prov:DAVID SIMEON TRAFFIC OFFICER 07/13/19 Ascorbic Acid (ASCORBIC ACID) 500 Mg Tablet, 500 MG PO BID for 30 Days, TAB Prov:DAVID SIMEON TRAFFIC OFFICER 07/13/19 Ferrous Sulfate (FERROUS SULFATE) 325 Mg Tablet.dr, 325 MG PO BID for 30 Days Prov:DAVID SIMEON TRAFFIC OFFICER 07/13/19 Folic Acid (FOLIC ACID) 1 Mg Tablet, 1 MG PO DAILY for 30 Days, TAB Prov:DAVID SIMEON TRAFFIC OFFICER 08/14/18 Vancomycin Hcl (VANCOCIN HCL) 250 Mg Capsule, 250 MG PO Q6HR for 42 Days Prov:DAVID SIMEON TRAFFIC OFFICER 08/04/18 Loperamide Hcl* (IMODIUM*) 2 Mg Cap, 2 MG PEG TID PRN for DIARRHEA, #20 CAP Prov:DAVID SIMEON TRAFFIC OFFICER 08/04/18 Acetaminophen With Codeine (TYLENOL WITH CODEINE #3 TABLET) 1 Each Tablet, 300 MG PO Q6H for PAIN, #30 TAB Prov:DAVID SIMEON TRAFFIC OFFICER 08/04/18 Levothyroxine Sodium (SYNTHROID) 75 Mcg Tab, 75 MCG PO DAILY@06, #30 TAB Prov:DAVID SIMEON TRAFFIC OFFICER 06/28/18 Amitriptyline Hcl (AMITRIPTYLINE HCL) 25 Mg Tablet, 25 MG PO HS, #30 TAB Prov:DAVID SIMEON TRAFFIC OFFICER 06/28/18 Allopurinol (ALLOPURINOL) 300 Mg Tablet, 100 MG PO DAILY, #30 TAB Prov:DAVID SIMEON TRAFFIC OFFICER 06/28/18 Lactobacillus Acidophilus (ACIDOPHILUS) 1 Each Tab.chew, 1 TAB PEG BID for 30 Days Prov:DAVID SIMEON TRAFFIC OFFICER 06/28/18 [mucomyst] No Conflict Check, 4 ML NEB BID PRN for THICK SECRETIONS for 30 Days 10% MIX WITH ALBUTEROL Prov:DAVID SIMEON TRAFFIC OFFICER 06/28/18 Clonidine Hcl (CATAPRES) 0.1 Mg Tablet, 0.1 MG PO Q8H PRN for sbp>160, #30 Prov:DAVID SIMEON 06/28/18 Insulin Aspart (NOVOLOG) 100 Units/1 Ml Inj, 0 SQ Q6H, #1 SLIDING SCALE: 150-200 3 UNITS 201-250 6 UNITS 251-300 9 UNITS 301-350+ 12 UNITS Prov:DAVID SIMEON 06/28/18 Potassium Chloride* (K DUR*) 10 Meq Tabcr, 20 MEQ PO DAILY, #30 Prov:DAVID SIMEON 06/28/18 Lorazepam (LORAZEPAM) 0.5 Mg Tablet, 0.5 MG PEG TID PRN for ANXIETY, #30 TAB Prov:DAVID SIMEON 06/28/18 Metoclopramide Hcl (REGLAN) 5 Mg Tablet, 5 MG PEG TID for 30 Days Prov:DAVID SIMEON 06/28/18 Furosemide (LASIX) 40 Mg Tablet, 40 MG PO DAILY, #30 TAB Prov:DAVID SIMEON 06/28/18 Sitagliptin Phosphate (JANUVIA) 100 Mg Tablet, 50 MG PO DAILY, #30 TAB Prov:DAVID SIMEON 06/28/18 Metoprolol Tartrate (LOPRESSOR) 25 Mg Tab, 25 MG PO Q12HR for 30 Days, TAB Prov:DAVID SIMEON TRAFFIC OFFICER 03/09/18 Simethicone (SIMETHICONE) 80 Mg Chew, 80 MG PO PCHS PRN for GAS for 30 Days Prov:TRINIDAD WALKER NP 01/20/18 Levalbuterol Hcl (XOPENEX) 0.63 Mg/3 Ml Vial.neb, 0.63 MG INH RQ6H PRN for shorntess of breath for 30 Days Prov:TRINIDAD WALKER NP 01/20/18 Ipratropium Candor (IPRATROPIUM BROMIDE) 0.2 Mg/1 Ml Solution, 2.5 ML NEB RQ6H for 30 Days Prov:TRINIDAD WALKER NP 01/20/18 Balsam Milam/Lincoln Oil (VENELEX OINTMENT) 60 Gm Oint...g., 0 GM TP DAILY for 30 Days Prov:TRINIDAD WALKER NP 01/20/18 Acetaminophen (ACETAMINOPHEN) 325 Mg Tablet, 650 MG PO Q4H PRN for PAIN AND TEMPERATURE for 30 Days Prov:TRINIDAD WALKER NP 01/20/18 Medications in the ED Lorazepam 1 mg ONCE ONCE IM Last administered on 05/16/20at 20:40; Admin Dose 1 MG; Start 05/16/20 at 20:15; Stop 05/16/20 at 20:16; Status DC PHOENIX CIFUENTES MD May 16, 2020 21:32
--- NOTE | 2020-05-16 21:39 | Diagnostic Imaging Report ---
EXAMINATION: CHEST SINGLE (PORTABLE) INDICATION: Shortness of breath. COMPARISON: Multiple prior chest radiograph including most recent on 02/10/2020. FINDINGS: TUBES and LINES: Tracheostomy tube which terminates approximately 3.5 cm above the marlyn. LUNGS: Normal lung volumes. Lungs are clear. No consolidations. There are scattered calcified granulomas which are unchanged. PLEURA: No pleural effusion or pneumothorax. HEART AND MEDIASTINUM: The cardiomediastinal silhouette is unremarkable. BONES AND SOFT TISSUES: No acute osseous lesion. Soft tissues are unremarkable. UPPER ABDOMEN: No free air under the diaphragm. IMPRESSION: No acute thoracic radiographic abnormality. Signed by: Colin Wright MD on 05/16/2020 9:36 PM
--- OUTSIDE RECORDS SUMMARY | 2020-05-16 21:51 | XMS REPORT | Continuity of Care Document ---
Author Author Irene Chaudhary [employer], MOJGAN Rader [facility] [employer] Information Exchange Address Unknown Phone Unavailable Care Team Providers Care Sql Engineer Name Role Phone [facility] Unavailable Un available Problems Problem Status Onset Date Classification Date Reported Comments Source TRACH Active 06/27/2019 [facility] TRACHEOSTOMY STATUS Active 09/08/2018 [facility] Other specified diseases of upper respiratory tract 08/17/2018 03/01/2019 [facility]SC[facility] Chaudhary UNK Active 0 05/19/2016 [facility] Atherosclerotic heart disease of platinum coronary artery without angina pectoris 03/01/2019 OSCAR Chaudhary Atherosclerosis of aorta 03/01/2019 [facility] Chaudhary Diaphragmatic hernia without obstruction or gangrene 03/01/2019 [facility] Chaudhary Arthritis (disorder) Active Problem 07/03/2019 [facility] Benign hypertension (disorder) Active Problem [facility] Diabetes mellitus (disorder) A ctive Problem [facility] Fibromyositis (disorder) Active Problem 07/03/2019 [facility] Gastroesophageal reflux disease (disorder) Active Problem 07/03/2019 [facility] Generalized obesity (disorder) Active Problem [facility] Heart murmur (finding) Active Problem 07/03/2019 [facility] Hypothyroidism (disorder) Acti ve Problem [facility] Irritable colon (disorder) Act [place] Problem [facility] UNSPECIFIED TRACHEOSTOMY COMPLICATION Active [facility] Medications Medication Details Route Status Patient Instructions Ordering Provider Order Date Source levothyroxine 175 mcg (0.175 mg) oral tablet 175 microgram = 1 tab, PO, Daily, # 15 tab, 0 Refill(s) Active 06/29/2019 [facility] nter Metoclopramide 5 MG Oral Tablet 5 mg = 1 tab, PO, Daily, # 30 tab, 0 Refill(s) No Longe r Active 06/29/2019 [facility] nter Clonidine Hydrochloride 0.1 MG Oral Tablet 160, 0 Refill(s) Active 06/29/2019 [facility] cefTRIAXone 1 g intravenous injection 1 gm, IV, 1G/100ML NS //INFUSE OVER 30 MIN IN Q12H, 0 Refill(s) No Longer Active 06/29/2019 [facility] sennosides, SNF Notes: (Same a s: Senokot) No Longer Active 06/29/2019 [facility] POLYETHYLENE GLYCOL 3350 Notes : Dissolve in 8 oz of water or juice. (Same as: Miralax) No Longer Active 06/28/2019 [facility] nter Allopurinol Notes: (Same as: Z yloprim) No Longer Active 06/28/2019 [facility] Furosemide 40 MG Oral Tablet [Lasix] Notes: (Same as: Lasix) May cause GI upset. Give with food or milk. No Longer Active 06/28/2019 [facility] Thyroxine Notes: Take 1 hour b efore or 2 hours after meal; Enteral feeds may interefere with the absorption of this medication. (Same as: Levothroid) No Longe r Active 06/28/2019 [facility] nter Sodium Chloride 0.9% IV 1,000 mL 1,000 mL, Rate: 75 ml/hr, Infuse over: 13.3 hr, Route: IV, Dosing Weight 81.818 kg, Total Volume: 1,000, Start date: 06/27/19 23:57:00 CDT, Duration: 30 day, Stop date: 07/27/19 23:56:00 REDUCING SALON ATTENDANT, 2, m2, 0 No Longer Active 06/28/2019 [facility] nter Oxycodone Hydrochloride 5 MG Oral Tablet Notes: (Same as: Roxicodone) No Longer Active 06/28/2019 [facility] nter Naloxone Notes: Same as Narcan No Longer Active 06/28/2019 [facility] Melatonin Notes: (Same as: [place] atonin) No Longer Active 06/28/2019 [facility] Amitriptyline Notes: (Same as: Elavil) No Longer Active 06/28/2019 [facility] ondansetron (ANES) Route: IV, Drug form: INJ, ONCE, Stop date: 06/27/19 19:26:00 CDT Inactive 06/28/2019 [facility] nter glycopyrrolate (ANES) Route: I V, Drug form: INJ, ONCE, Stop date: 06/27/19 19:26:00 CDT Inactive 06/28/2019 [facility] nter neostigmine (ANES) Route: IV, Drug form: INJ, ONCE, Stop date: 06/27/19 19:26:00 CDT Inactive 06/28/2019 [facility] nter dexamethasone (ANES) Route: IV , Drug form: INJ, ONCE, Stop date: 06/27/19 18:53:00 CDT Inactive 06/27/2019 [facility] nter fentaNYL (ANES) Route: IV, David g form: INJ, ONCE, Stop date: 06/27/19 18:38:00 CDT Inactive 06/27/2019 [facility] nter lidocaine (ANES) Route: IV, Dr ug form: INJ, ONCE, Stop date: 06/27/19 18:33:00 CDT Inactive 06/27/2019 [facility] nter propofol (ANES) Route: IV, David g form: INJ, ONCE, Stop date: 06/27/19 18:33:00 CDT Inactive 06/27/2019 [facility] nter rocuronium (ANES) Route: IV, D rug form: INJ, ONCE, Stop date: 06/27/19 18:23:00 CDT Inactive 06/27/2019 [facility] nter phenylephrine (ANES) Route: IV , Drug form: INJ, ONCE, Stop date: 06/27/19 18:23:00 CDT Inactive 06/27/2019 [facility] nter Lactated Ringers Injection IV (ANES) 1000 mL Route: IV, Total Volume: 1,000, Start date: 06/27/19 17:32:00 CDT, Stop date: 06/27/19 18:32:00 CDT Inactive 06/27/2019 [facility] Dextrose 50% Syringe 12.5 gm, 25 mL, Route: IVP, Drug Form: INJ, Dosing Weight 81.818, kg, PRN, PRN Blood Glucose Results, Start date: 06/27/19 17:30:00 CDT, Duration: 30 day, Stop date: 07/27/19 16:29:00 REDUCING SALON ATTENDANT, 0 No Longer Active 06/27/2019 [facility] Glucagon 1 mg, Route: IM, Drug form: PDR/INJ, PRN, Dosing Weight 81.818, kg, PRN Blood Glucose Results, Start date: 06/27/19 17:30:00 CDT, Duration: 30 day, Stop date: 07/27/19 16:29:00 REDUCING SALON ATTENDANT, 0 No Longer Active 06/27/2019 [facility] Insulin regular Notes: (Same a s: Humulin R) Roll in palms of hands gently; Do not shake vigorously. WASTE: F/P - Black; E - Municipal Trash Bin Stable for 31 days at room temperature Expires in days from Date No Longer Active 06/27/2019 [facility] nt Dextrose 50% Syringe 12.5 gm, 25 mL, Route: IVP, Drug Form: INJ, Dosing Weight 81.818, kg, PRN, PRN Blood Glucose Results, Start date: 06/27/19 17:06:00 CDT, Duration: 30 day, Stop date: 07/27/19 16:05:00 REDUCING SALON ATTENDANT, 0 No Longer Active 06/27/2019 [facility] Glucagon 1 mg, Route: IM, Drug form: PDR/INJ, PRN, Dosing Weight 81.818, kg, PRN Blood Glucose Results, Start date: 06/27/19 17:06:00 CDT, Duration: 30 day, Stop date: 07/27/19 16:05:00 REDUCING SALON ATTENDANT, 0 No Longer Active 06/27/2019 [facility] Bisacodyl Notes: (Same As: Dul colax, Bisco-Lax) No Longer Active 06/27/2019 [facility] Ondansetron Notes: (Same as: Jacqui walter) MEDICATION WASTE Product Size: 4 mg Product Wasted: ___ mg No Longer Active 06/27/2019 [facility] Melatonin Notes: (Same as: [place] atonin) No Longer Active 06/27/2019 [facility] Acetaminophen Notes: Do not ex ceed 4 gm/day. (Same as: Tylenol) No Longer Active 06/27/2019 [facility] Saline Flush 0.9% 10 mL, Route : IVP, Drug Form: INJ, Dosing Weight 81.818, kg, PRN, PRN Line Flush, Start date: 06/27/19 15:12:00 CDT, Duration: 30 day, Stop date: 07/27/19 14:11:00 REDUCING SALON ATTENDANT, 0 No Longer Active 06/27/2019 [facility] potassium chloride Notes: (Prasanth e as: Potassium Chloride) Inactive 11/07/2018 [facility] Thyroxine Notes: Take 1 hour b efore or 2 hours after meal; Enteral feeds may interefere with the absorption of this medication. (Same as: Levothroid) Inactive 11/07/2018 [facility] Furosemide 40 MG Oral Tablet [Lasix] Notes: (Same as: Lasix) May cause GI upset. Give with food or milk. Inactive 11/07/2018 [facility] Allopurinol Notes: (Same as: Jacqui yloprim) Inactive 11/07/2018 [facility] Metformin hydrochloride 500 MG Oral Tablet Notes: (Same as: Glucophage) Take with meal Inactive 11/07/2018 [facility] nter Acetaminophen Notes: Max aceta minophen = 4000mg/day (4 gm/day). (Same as: Tylenol) Inactive 11/07/2018 [facility] nter Dicyclomine Notes: (Same as:Be ntyl) No Longer Active 11/07/2018 [facility] Amitriptyline Notes: (Same as: Elavil) No Longer Active 11/07/2018 [facility] tramadol hydrochloride 50 MG Oral Tablet Notes: Not to exceed 400mg/day. (Same As: Ultram) No Longer Active 11/06/2018 [facility] nter Docusate Notes: (Same as: Cola ce) No Longer Active 11/06/2018 [facility] Ondansetron Notes: (Same as: Jacqui walter) MEDICATION WASTE Product Size: 4 mg Product Wasted: ___ mg No Longer Active 11/06/2018 [facility] Promethazine Notes: Do not giv e IV push. (Same as: Phenergan) Inactive 11/06/2018 [facility] Ondansetron Notes: (Same as: Jacqui walter) MEDICATION WASTE Product Size: 4 mg Product Wasted: ___ mg Inactive 11/06/2018 [facility] Naloxone Notes: Same as Narcan Inactive 11/06/2018 [facility] Oxycodone Notes: (Same as: [place] icodone) Inactive 11/06/2018 [facility] Acetaminophen Notes: Max aceta minophen 4000 mg/day (4 gm/day). (Same as: Tylenol Extra Strength) Inactive 11/06/2018 [facility] nt Labetalol 10 mg, 2 mL, Route: IVP, Drug form: INJ, Q5Min, Dosing Weight 86.364, kg, PRN Elevated BP, Start date: 11/06/18 16:16:00 REDUCING SALON ATTENDANT, Duration: 5 doses or times, Stop date: 11/07/18 0:00:00 REDUCING SALON ATTENDANT Inactive 11/06/2018 [facility] esmolol Notes: (Same as: Brevi bloc) Inactive 11/06/2018 [facility] Flumazenil Notes: (Same as: Ro mazicon) Inactive 11/06/2018 [facility] glycopyrrolate (ANES) Route: I V, Drug form: INJ, ONCE, Stop date: 11/06/18 16:15:00 REDUCING SALON ATTENDANT Inactive 11/06/2018 [facility] nter ondansetron (ANES) Route: IV, Drug form: INJ, ONCE, Stop date: 11/06/18 16:15:00 REDUCING SALON ATTENDANT Inactive 11/06/2018 [facility] nter neostigmine (ANES) Route: IV, Drug form: INJ, ONCE, Stop date: 11/06/18 16:15:00 REDUCING SALON ATTENDANT Inactive 11/06/2018 [facility] nter dexamethasone (ANES) Route: IV , Drug form: INJ, ONCE, Stop date: 11/06/18 16:11:00 REDUCING SALON ATTENDANT Inactive 11/06/2018 [facility] nter fentaNYL (ANES) Route: IV, David g form: INJ, ONCE, Stop date: 11/06/18 16:11:00 REDUCING SALON ATTENDANT Inactive 11/06/2018 [facility] nt propofol (ANES) Route: IV, David g form: INJ, ONCE, Stop date: 11/06/18 16:11:00 REDUCING SALON ATTENDANT Inactive 11/06/2018 [facility] nter rocuronium (ANES) Route: IV, D rug form: INJ, ONCE, Stop date: 11/06/18 15:56:00 REDUCING SALON ATTENDANT Inactive 11/06/2018 [facility] nter Lactated Ringers Injection IV (ANES) 1000 mL Route: IV, Total Volume: 1,000, Start date: 11/06/18 15:16:00 REDUCING SALON ATTENDANT, Stop date: 11/06/18 16:16:00 REDUCING SALON ATTENDANT Inactive 11/06/2018 [facility] sugammadex Notes: (Same as: Reese porras) No Longer Active 11/06/2018 [facility] 8 HR Acetaminophen 650 MG Extended Relea se Tablet [Tylenol] 1,300 mg = 2 tab, PO, Q8H, 0 Refill(s) On Hold 11/02/2018 [facility] nter potassium chloride 20 mEq oral tablet, extended releas e 20 mEq = 1 tab, PEG, Daily, # 30 tab, 3 Refill(s) On Hold 11/02/2018 [facility] nt Furosemide 40 MG Oral Tablet [Lasix] 40 mg = 1 tab, PEG, Daily, # 30 tab, 0 Refill(s) On Hold 11/02/2018 [facility] nt levothyroxine 150 mcg (0.15 mg) oral tablet 150 microgram = 1 tab, PEG, Daily, # 30 tab, 0 Refill(s) On Hold 11/02/2018 [facility] allopurinol 100 mg oral tablet 100 mg = 1 tab, PEG, Daily, # 60 tab, 0 Refill(s) O n Hold 11/02/2018 [facility] Albuterol 0.833 MG/ML / Ipratropium Brom [...] Stop date: 07/15/16 13:19:00 CDT Inactive 06/15/2016 [facility] Sodium Chloride 0.154 MEQ/ML Injectable Solution 500 mL, Rate: 25 ml/hr, Infuse over: 20 hr, Route: IV, Dosing Weight 152.273 kg, Total Volume: 500, Start date: 06/15/16 13:20:00 CDT, Duration: 30 day, Stop date: 07/15/16 13:19:00 CDT Inactive 06/15/2016 [facility] dicyclomine 20 mg oral tablet 20 mg = 1 tab, PO, QID, # 28 tab, 0 Refill(s) Active 06/14/2016 [facility] omeprazole 40 mg oral delayed release capsule 40 mg = 1 cap, PO, Daily, # 30 cap, 0 Refill(s) Active 06/14/2016 [facility] losartan 100 mg oral tablet 10 0 mg = 1 tab, PO, Daily, # 30 tab, 0 Refill(s) Active 06/14/2016 [facility] sitagliptin 100 MG Oral Tablet [Januvia] 100 mg = 1 tab, PO, Daily, # 30 tab, 0 Refill(s) Active 06/14/2016 [facility] amitriptyline 25 mg oral tablet 25 mg = 1 tab, PO, Bedtime, # 30 tab, 1 Refill(s) Active 06/14/2016 [facility] Metformin hydrochloride 500 MG Oral Tablet 1,000 mg = 2 tab, PO, BID-Meals, # 30 tab, 0 Refill(s) Active 06/14/2016 [facility] Allergies, Adverse Reactions, Alerts Substance Category Reaction Severity Reaction type Status Date Reported Comments Source penicillins Assertion Drug allergy Active [facility] heparin Assertion Drug allergy Active [facility] Other Environmental Allergy<sup>1</sup> Assertion Drug aller gy Active [facility] Immunizations No Data Provided for This Section Results Order Name Results Value Reference Range Date Interpretation Comments Source ELECTROLYTES AGAP 10.7 10.0 - 20.0 07/01/2019 [facility] ELECTROLYTES Glucose Lvl 102 70 - 99 07/01/2019 [facility] ELECTROLYTES BUN 26 7 - 22 07/01/2019 [facility] ELECTROLYTES Creatinine Lvl 0.8 0 0.50 - 1.40 07/01/2019 [facility] ELECTROLYTES Sodium Lvl 141 135 - 145 07/01/2019 [facility] ELECTROLYTES Potassium Lvl 3.7 3.5 - 5.1 07/01/2019 [facility] ELECTROLYTES Chloride Lvl 105 95 - 109 07/01/2019 [facility] ELECTROLYTES CO2 29 24 - 32 07/01/2019 [facility] ELECTROLYTES Calcium Lvl 9.5 8.5 - 10.5 07/01/2019 [facility] ELECTROLYTES eGFR 74 07/01/2019 Result Comment: [...] should be multiplied by the estimated BMI. [facility] HEMATOLOGY Segs 65.2 45.0 - 75.0 07/01/2019 [facility] HEMATOLOGY Lymphocytes 23.3 20.0 - 40.0 07/01/2019 [facility] HEMATOLOGY Monocytes 7.5 2.0 - 12.0 07/01/2019 [facility] HEMATOLOGY Eosinophils 3.4 0.0 - 4.0 07/01/2019 [facility] HEMATOLOGY Basophils 0.6 0.0 - 1.0 07/01/2019 [facility] HEMATOLOGY Neutrophils # 4.7 1.5 - 8.1 07/01/2019 [facility] HEMATOLOGY Lymphocytes # 1.7 1.0 - 5.5 07/01/2019 [facility] HEMATOLOGY Monocytes # 0.5 0.0 - 0.8 07/01/2019 [facility] HEMATOLOGY Eosinophils # 0.2 0.0 - 0.5 07/01/2019 [facility] HEMATOLOGY WBC 7.3 3.7 - 10.4 07/01/2019 [facility] HEMATOLOGY RBC 3.85 4.20 - 5.40 07/01/2019 [facility] HEMATOLOGY Hgb 11.8 12.0 - 16.0 07/01/2019 [facility] HEMATOLOGY Hct 35.6 36.0 - 48.0 07/01/2019 [facility] HEMATOLOGY MCV 92.6 80.0 - 98.0 07/01/2019 [facility] HEMATOLOGY MCH 30.7 27.0 - 31.0 07/01/2019 [facility] HEMATOLOGY MCHC 33.1 32.0 - 36.0 07/01/2019 [facility] HEMATOLOGY RDW 12.2 11.5 - 14.5 07/01/2019 [facility] HEMATOLOGY Platelet 21 133 - 450 07/01/2019 Result Comment: Critical Result(s) farley d to Kristie Lindsay at 07/01/2019 02:23 by Le. Julien back OK. [facility] HEMATOLOGY MPV 12.4 7.4 - 10.4 07/01/2019 [facility] HEMATOLOGY Segs 55.9 45.0 - 75.0 06/30/2019 [facility] HEMATOLOGY Lymphocytes 32.5 20.0 - 40.0 06/30/2019 [facility] HEMATOLOGY Monocytes 7.0 2.0 - 12.0 06/30/2019 [facility] HEMATOLOGY Eosinophils 4.2 0.0 - 4.0 06/30/2019 [facility] HEMATOLOGY Basophils 0.4 0.0 - 1.0 06/30/2019 [facility] HEMATOLOGY Neutrophils # 2.7 1.5 - 8.1 06/30/2019 [facility] HEMATOLOGY Lymphocytes # 1.6 1.0 - 5.5 06/30/2019 [facility] HEMATOLOGY Monocytes # 0.3 0.0 - 0.8 06/30/2019 [facility] HEMATOLOGY Eosinophils # 0.2 0.0 - 0.5 06/30/2019 [facility] HEMATOLOGY WBC 4.8 3.7 - 10.4 06/30/2019 [facility] HEMATOLOGY RBC 3.49 4.20 - 5.40 06/30/2019 [facility] HEMATOLOGY Hgb 10.8 12.0 - 16.0 06/30/2019 [facility] HEMATOLOGY Hct 32.5 36.0 - 48.0 06/30/2019 [facility] HEMATOLOGY MCV 93.0 80.0 - 98.0 06/30/2019 [facility] HEMATOLOGY MCH 30.9 27.0 - 31.0 06/30/2019 [facility] HEMATOLOGY MCHC 33.2 32.0 - 36.0 06/30/2019 [facility] HEMATOLOGY RDW 12.2 11.5 - 14.5 06/30/2019 [facility] HEMATOLOGY Platelet 19 133 - 450 06/30/2019 Result Comment: Critical Result(s) farley d to Zhen Walter at 06/30/2019 06:06 byJw Read back OK. [facility] HEMATOLOGY MPV 11.8 7.4 - 10.4 06/30/2019 [facility] ANEMIA STUDY Ferritin Lvl 595 5 - 204 06/28/2019 [facility] ANEMIA STUDY Folate Lvl 46.0 >=3.0 ng/mL 06/28/2019 [facility] ANEMIA STUDY Vitamin B12 Lvl 455 254 - 1320 06/28/2019 [facility] CHEM PANEL LDH 203 98 - 192 06/28/2019 [facility] CHEM PANEL Glucose Lvl 78 70 - 99 06/28/2019 [facility] CHEM PANEL BUN 14 7 - 22 06/28/2019 [facility] CHEM PANEL Creatinine Lvl 0.78 0.50 - 1.40 06/28/2019 [facility] CHEM PANEL Sodium Lvl 141 135 - 145 06/28/2019 [facility] CHEM PANEL Potassium Lvl 3.5 3.5 - 5.1 06/28/2019 [facility] CHEM PANEL Chloride Lvl 103 95 - 109 06/28/2019 [facility] CHEM PANEL CO2 27 24 - 32 06/28/2019 [facility] CHEM PANEL Calcium Lvl 9.0 8.5 - 10.5 06/28/2019 [facility] CHEM PANEL Total Protein 6.7 6.4 - 8.4 06/28/2019 [facility] CHEM PANEL Albumin Lvl 3.7 3.5 - 5.0 06/28/2019 [facility] CHEM PANEL ALT 15 0 - 65 06/28/2019 [facility] CHEM PANEL AST 13 0 - 37 06/28/2019 [facility] CHEM PANEL Alk Phos 112 39 - 136 06/28/2019 [facility] CHEM PANEL Bili Total 0.4 0.2 - 1.3 06/28/2019 [facility] CHEM PANEL eGFR 77 06/28/2019 Result [...] should be multiplied by the estimated BMI. [facility] CHEM PANEL AGAP 14.5 10.0 - 20.0 06/28/2019 [facility] CHEM PANEL B/C Ratio 18 6 - 25 06/28/2019 [facility] CHEM PANEL Globulin 3.0 2.7 - 4.2 06/28/2019 [facility] CHEM PANEL A/G Ratio 1.2 0.7 - 1.6 06/28/2019 [facility] HEMATOLOGY WBC 9.3 3.7 - 10.4 06/28/2019 [facility] HEMATOLOGY RBC 3.77 4.20 - 5.40 06/28/2019 [facility] HEMATOLOGY Hgb 11.5 12.0 - 16.0 06/28/2019 [facility] HEMATOLOGY Hct 35.1 36.0 - 48.0 06/28/2019 [facility] HEMATOLOGY MCV 92.9 80.0 - 98.0 06/28/2019 [facility] HEMATOLOGY MCH 30.6 27.0 - 31.0 06/28/2019 [facility] HEMATOLOGY MCHC 32.9 32.0 - 36.0 06/28/2019 [facility] HEMATOLOGY RDW 12.4 11.5 - 14.5 06/28/2019 [facility] HEMATOLOGY Platelet 31 133 - 450 06/28/2019 [facility] HEMATOLOGY MPV 15.5 7.4 - 10.4 06/28/2019 [facility] HEMATOLOGY Segs 70.1 45.0 - 75.0 06/28/2019 [facility] HEMATOLOGY Lymphocytes 22.0 20.0 - 40.0 06/28/2019 [facility] HEMATOLOGY Monocytes 5.6 2.0 - 12.0 06/28/2019 [facility] HEMATOLOGY Eosinophils 2.0 0.0 - 4.0 06/28/2019 [facility] HEMATOLOGY Basophils 0.3 0.0 - 1.0 06/28/2019 [facility] HEMATOLOGY Neutrophils # 6.5 1.5 - 8.1 06/28/2019 [facility] HEMATOLOGY Lymphocytes # 2.1 1.0 - 5.5 06/28/2019 [facility] HEMATOLOGY Monocytes # 0.5 0.0 - 0.8 06/28/2019 [facility] HEMATOLOGY Eosinophils # 0.2 0.0 - 0.5 06/28/2019 [facility] IMMUNOLOGY Haptoglobin 137 16 - 200 06/28/2019 [facility] IMMUNOLOGY HIV Ag/Ab 4th Gen Negat brooklynn *NA* (06/28/19 6:50 PM) Negative 06/28/2019 [facility] IMMUNOLOGY Hep C Ab Negat brooklynn *NA* (06/28/19 6:50 PM) Negative 06/28/2019 [facility] IMMUNOLOGY Hep B Core IgM Negat brooklynn *NA* (06/28/19 6:50 PM) Negative 06/28/2019 [facility] IMMUNOLOGY Hep A IgM Negat brooklynn *NA* (06/28/19 6:50 PM) Negative 06/28/2019 [facility] IMMUNOLOGY Hep Bs Ag Negat brooklynn *NA* (06/28/19 6:50 PM) Negative 06/28/2019 [facility] METAL Copper Lvl 111 72 - 166 06/28/2019 Result Comment: This test was developed and its performance characteristics
determined by [facility]. It has not been cleared or
approved by the Food and Drug Administration.
Detection Limit = 5
Performed At: [facility]
[address], [place] [id number]
Jamie Santoyo MD Ph:[phone] [facility] HEMATOLOGY PB Smear Path Perip heral blood smear examination: Normocytic normochromic anemia. Schistocytes are not increased. Adequate WBCs with minimally reactive PMNs. Marked thrombocytopenia with presence of rare large forms. CPT: 61648 06/28/2019 [facility] HEMATOLOGY Platelet Count Blue Top 2 0 133 - 450 06/28/2019 Result Comment: Critical Result(s) farley d to Zhen Swann at 06/27/2019 21:46 by JA. Read back OK. [facility] BLOOD BANK RESULTS Path AB Blood Bank Physician Service The patient is a 69 year old female, presenting for complication of tracheostomy. No recent transfusion history. 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 This antibody is directed against Pray antigen of the [employer] blood group system. [...] with the resident, Dr. Becerra's interpretation. CPT: 73769- GC 06/27/2019 [facility] BLOOD BANK RESULTS ABO/Rh A NEG 06/27/2019 [facility] BLOOD BANK RESULTS Antibody Scrn Positive 4 (06/27/19 3:54 PM) 06/27/2019 Result Comment: 06/27/2019 1 7:27 [id number]
"Significant Findings of POS ABSC_ called to _Hang FUCHS at _06/27/2019 17:25_ by JNY__. Read Back OK" [facility] BLOOD BANK RESULTS AB Int Anti-K 06/27/2019 [facility] CHEM PANEL Glucose Lvl 101 70 - 99 06/27/2019 [facility] CHEM PANEL BUN 15 7 - 22 06/27/2019 [facility] CHEM PANEL Creatinine Lvl 0.79 0.50 - 1.40 06/27/2019 [facility] CHEM PANEL Sodium Lvl 141 135 - 145 06/27/2019 [facility] CHEM PANEL Potassium Lvl 4.0 3.5 - 5.1 06/27/2019 [facility] CHEM PANEL Chloride Lvl 104 95 - 109 06/27/2019 [facility] CHEM PANEL CO2 26 24 - 32 06/27/2019 [facility] CHEM PANEL Calcium Lvl 10.5 8.5 - 10.5 06/27/2019 [facility] CHEM PANEL eGFR 76 06/27/2019 Result [...] should be multiplied by the estimated BMI. [facility] CHEM PANEL AGAP 15.0 10.0 - 20.0 06/27/2019 [facility] HEMATOLOGY INR 0.99 0.85 - 1.17 06/27/2019 [facility] HEMATOLOGY PT 12.9 12.0 - 14.7 06/27/2019 [facility] HEMATOLOGY PTT 28.6 22.9 - 35.8 06/27/2019 [facility] HEMATOLOGY RBC Morph Vale l (06/27/19 3:54 PM) Normal 06/27/2019 [facility] HEMATOLOGY Plt Morph Vale l (06/27/19 3:54 PM) Normal 06/27/2019 [facility] ELECTROLYTES AGAP 12.9 10.0 - 20.0 11/06/2018 [facility] ELECTROLYTES CO2 18 24 - 32 11/06/2018 [facility] ELECTROLYTES Calcium Lvl 9.9 8.5 - 10.5 11/06/2018 [facility] ELECTROLYTES Potassium Lvl 4.9 3.5 - 5.1 11/06/2018 [facility] ELECTROLYTES Chloride Lvl 109 95 - 109 11/06/2018 [facility] ELECTROLYTES Creatinine Lvl 0.8 0 0.50 - 1.40 11/06/2018 [facility] ELECTROLYTES Sodium Lvl 135 135 - 145 11/06/2018 [facility] ELECTROLYTES Glucose Lvl 94 70 - 99 11/06/2018 [facility] ELECTROLYTES BUN 36 7 - 22 11/06/2018 [facility] ELECTROLYTES eGFR 75 11/06/2018 Result Comment: [...] should be multiplied by the estimated BMI. [facility] ELECTROLYTES Chloride Lvl 103 95 - 109 06/14/2016 [facility] ELECTROLYTES Potassium Lvl 5.1 3.5 - 5.1 06/14/2016 [facility] ELECTROLYTES AGAP 11.1 10.0 - 20.0 06/14/2016 [facility] ELECTROLYTES Calcium Lvl 9.2 8.5 - 10.5 06/14/2016 [facility] ELECTROLYTES CO2 26 24 - 32 06/14/2016 [facility] ELECTROLYTES eGFR 76 06/14/2016 Result Comment: [...] should be multiplied by the estimated BMI. [facility] ELECTROLYTES Creatinine Lvl 0.8 0 0.50 - 1.40 06/14/2016 [facility] ELECTROLYTES BUN 11 7 - 22 06/14/2016 [facility] ELECTROLYTES Sodium Lvl 135 135 - 145 06/14/2016 [facility] ELECTROLYTES Glucose Lvl 112 70 - 99 06/14/2016 [facility] Pathology Reports No Data Provided for [...] the shoulder s and thoracic spine. 06/29/2019 [facility] Abdomen complete US EXAM: US A [...] component of chronic renal parenchymal disease. 06/29/2019 [facility] Esophagus BA swallow function video DX [...] of different consistencies. Thin barium: Deep penetration. Millstone barium: Deep penetration Pudding barium: Normal. Solid with barium: Normal. IMPRESSION: 1. Deep penetration with thin and necta r consistency barium. 2. Please also see detailed chart note by speech pathology. 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 COMPARISON: None. TECHNIQUE: Oral barium contrast of differing consistencies was given to the patient to assess swallowing mechanism. The study was performed in conjunction with speech pathology. FLUOROSCOPY TIME: 38 seconds Skin dose: 2.1 mGy DISCUSSION: The patient was given barium contrast of different consistencies. Thin barium: There was aspiration with nonproductive cough with thin consistency barium by spoon. Millstone barium: There was aspiration with nonproductive cough with nectar consistency barium by spoon. Puree barium: No evidence of penetration or aspiration with puree consistency. IMPRESSION: 1. Aspiration with thin and nectar cons istencies. 2. Please also see detailed chart note by speech pathology. 11/07/2018 [facility] Chest w contrast CT EXAM: CT CHEST WITH CONTRAST DATE: 08/11/2018 at 4:27 PM REDUCING SALON ATTENDANT INDICATION: - J39.8 Other specified diseases of [...] Source Temperature Oral (F) 97.6 F 07/01/2019 [facility] Heart Rate 68 07/01/2019 [facility] Systolic (mm Hg) 121 07/01/2019 [facility] Diastolic (mm Hg) 78 07/01/2019 [facility] Temperature Oral (F) 97.6 F 07/01/2019 [facility] Heart Rate 106 07/01/2019 [facility] Systolic (mm Hg) 129 07/01/2019 [facility] Diastolic (mm Hg) 76 07/01/2019 [facility] Temperature Oral (F) 100 F 07/01/2019 [facility] Heart Rate 92 07/01/2019 [facility] Respitory Rate 18 07/01/2019 [facility] Systolic (mm Hg) 106 07/01/2019 [facility] Diastolic (mm Hg) 62 07/01/2019 [facility] Respitory Rate 18 06/30/2019 [facility] Respitory Rate 20 06/30/2019 [facility] Height 172.72 cm 06/29/2019 [facility] Height 172.72 cm 06/29/2019 [facility] Height 172.72 cm 06/28/2019 [facility] Weight 81.818 06/28/2019 [facility] BMI Calculated 27.43 06/28/2019 [facility] Weight 81.818 06/27/2019 [facility] Temperature Oral (F) 97.2 F 11/07/2018 [facility] Heart Rate 61 11/07/2018 [facility] Systolic (mm Hg) 98 11/07/2018 [facility] Diastolic (mm Hg) 61 11/07/2018 [facility] Respitory Rate 18 11/07/2018 [facility] Heart Rate 70 11/07/2018 [facility] Temperature Oral (F) 97.5 F 11/07/2018 [facility] Systolic (mm Hg) 104 11/07/2018 [facility] Diastolic (mm Hg) 64 11/07/2018 [facility] Respitory Rate 20 11/07/2018 [facility] Systolic (mm Hg) 134 11/07/2018 [facility] Diastolic (mm Hg) 72 11/07/2018 [facility] Respitory Rate 21 11/07/2018 [facility] Temperature Oral (F) 98.3 F 11/07/2018 [facility] BMI Calculated 28.12 11/06/2018 [facility] Weight 86.364 11/06/2018 [facility] Heart Rate 122 11/06/2018 [facility] Height 175.26 cm 11/02/2018 [facility] Respitory Rate 23 06/15/2016 [facility] Systolic (mm Hg) 134 06/15/2016 [facility] Diastolic (mm Hg) 88 06/15/2016 [facility] Respitory Rate 16 06/15/2016 [facility] Systolic (mm Hg) 113 06/15/2016 [facility] Diastolic (mm Hg) 71 06/15/2016 [facility] Respitory Rate 22 06/15/2016 [facility] Systolic (mm Hg) 113 06/15/2016 [facility] Diastolic (mm Hg) 71 06/15/2016 [facility] Temperature Oral (F) 98.9 F 06/14/2016 [facility] Heart Rate 80 06/14/2016 [facility] Height 172.72 cm 06/14/2016 [facility] BMI Calculated 51.04 06/14/2016 [facility] Weight 152.273 06/14/2016 [facility] Encounters Location Location Details Encounter Type Encounter Number Reason For Visit Attending Provider ADM Date DC Date Status Source [facility] Bedded Outpatient [id number] Joseph Hoffman 06/15/2016 06/15/2016 [facility] Outpatient [facility] [id number] 00 Brayden Downingseth 08/11/2018 08/12/2018 [facility] Observation [id number] Sally Neff 11/07/2018 11/07/2018 [facility] Inpatient [id number] Paulie Silva 06/27/2019 07/01/2019 [facility] Procedures Procedure Code Date Perfomer Comments Source Hip joint operations [id number] [facility]<sup>1</sup> 39 [id number] Five surgeries total [id number] - Percutaneous endoscopic gastrostomy [id number] [facility] Tracheostomy [id number] [facility]SC[facility] Chaudhary Assessment and Plan Assessment and [...] 06/27 with ENT. She was seen by OPHTHALMIC DISPENSER and dysphagia diet adjusted. She was also [...] Hold metformin; SSI 5.Fibromyalgia(M79.7) Continue amitriptyline 6.Dysphagia(R13.10) OPHTHALMIC DISPENSER s/p MBS for ground with nectar. Patient [...] time and patient is following with outpatient locomotive repairer diesel. - Review of peripheral blood smear revea [...] to continue to follow up with her locomotive repairer diesel. Patient was staffed withhematology attending physician, Dr.Juneja POSADAS. Yasmin Suero MD PGY2 - Internal Medicine [facility] | [facility] e-mail: [email or web address]| pager: [phone] TEACHING PHYSICIAN ADDENDUM. I saw and personally [...] 06/27/19 17:06:00 CDT, Status: In[facility], IM[facility] Expected [facility]: 2 Midnights, Paulie Silva [...] Duration: 30 day, Stop date: 07/26/19 21:00:00 REDUCING SALON ATTENDANT, 0 6.Dysphagia(R13.10) When patient is cleared for [...] Duration: 30 day, Stop date: 07/27/19 9:00:00 REDUCING SALON ATTENDANT, 0 11.Irritable bowel syndrome (IBS)(K58.9) Continue amitriptyline and a bowel regimen while on narcotics for pain. Ordered: amitriptyline, 25 mg, 1 tab, Route: PEG, Drug form: TAB, Bedtime, Dosing Weight 81.818, kg, Start date: 06/27/19 21:00:00 CDT, Duration: 30 day, Stop date: 07/26/19 21:00:00 REDUCING SALON ATTENDANT, 0 SCD/teds Home with home health trach supplies pending ENT clearance. Likely 2 midnights. Full admission. Addendum by Jose M Jose MD on 06/28/2019 00:33 CDT Contacted [facility] and unable to provide updated med list. They believe pt switched over to mail order Rx as her prescriptions are all out-of-date but they do confirm a majority of current list. Lasix is uncertain. 07/01/2019 [facility] Extracted from:Title: ORL/HNS CABLE SYSTEMS INSTALLER note Author: Tamara Caro CABLE SYSTEMS INSTALLER Date: 11/07/18 CABLE SYSTEMS INSTALLER was called to BS by RN 2/ [...] planning as appropriate.RN and CN updated. 11/07/2018 [facility] Plan of Care No Data Provided for This Section Social History Social History Date Source Social History TypeResponse Alcohol Past Smoking Status Never smoker; Exposure to Tobacco Smoke None; Cigarette Smoking Last 365 Days No; Reg Smoking Cessation Counseling No entered on: 06/27/19 06/28/2019 [facility] Social History TypeResponse Alcohol Past Smoking Status Never smoker; Exposure to Tobacco Smoke None; Cigarette Smoking Last 365 Days No; Reg Smoking Cessation Counseling No entered on: 11/06/18 06/14/2016 [facility] Social History TypeResponse Alcohol Past Smoking Status Never smoker; Exposure to Tobacco Smoke None; Cigarette Smoking Last 365 Days No; Reg Smoking Cessation Counseling No 06/14/2016 [facility] Family History No Data Provided for This Section Advance Directives No Data Provided for This Section Functional Status No Data Provided for This Section
--- OUTSIDE RECORDS SUMMARY | 2020-05-16 21:59 | XMS REPORT | Continuity of Care Document ---
Author Author [facility] t Organization [facility] t Address [address] [place] [address] Phone Unavailable Care Team Providers Care Wrapper Operator Name Role Phone ELOISA VENEGAS DO Damian MCKNIGHT PCP Jeison CIFUENTES Attphys Unavailable CAITLYN ROMERO Attphys Unavailable Calixto MENJIVAR Attphys Unavailable ILAN STEIN Attphys Unavailable Paulie Silva Attphys Malcolm CANNON Attphys Unavailable JUAN S WILIAM Attphys Unavailable David Neff Attphys Denilson Hurd Attphys Magui MILLER Attphys Unavailable Calixto MÉNDEZ Attphys Unavailable Calixto SANTACRUZ Attphys Unavailable Ramandeep Hoffman Attphys ILAN STEIN Admphys Unavailable Paulie Silva Admphys Payers Payer Name Policy Type Policy Number Effective Date Expiration Date [facility] [id number] 2019 00:00:00 [facility] [id number] 2019 00:00:00 [facility] [id number] 2018 00:00:00 2018 00:00:00 [facility] Problems Condition Name Condition Details Condition Category Status Onset Date Resolution Date Last Treatment Date Treating Clinician Comments Source TRACH TRAC H Active 06/27/2019 [facility] Diagnosis Active 2019-06-27 00:00:00 2019-07-12 22:28:00 [facility] Jet TRACHEOSTOMY STATUS TRAC HEOSTOMY STATUS Active 09/08/2018 [facility] Diagnosis Active 2018-09-08 00:00:00 2019-06-20 09:18:00 Irene Chaudhary UNK UNK Active 05/19/2016 [facility] Diagnosis Active 2016-05-19 00:00:00 2016-06-15 12:27:00 M luis Chaudhary 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 03/01/2019 OSCAR Chaudhary Problem 2019-03-01 11:10:18 [facility] Jet Atherosclerosis of aorta Athe rosclerosis of aorta 03/01/2019 OSCAR Chaudhary Problem 2019-03-01 11:10:18 Irene Chaudhary Diaphragmatic hernia without obstruction or gangrene Diaphragmatic hernia without obstruction or gangrene 03/01/2019 OSCAR Chaudhary Problem 2019-03-01 11:10:18 Irene Chaudhary Arthritis (disorder) Arth ritis (disorder) Active Problem 07/03/2019 [facility] Problem Active 2019-07-03 21:23:40 Irene Chaudhary Benign hypertension (disorder) Benign hypertension (disorder) Active Problem 07/03/2019 [facility] Problem Active 2019-07-03 21:23:40 Jeremy Chaudhary Diabetes mellitus (disorder) D iabetes mellitus (disorder) Active Problem 07/03/2019 [facility] OSCAR Chaudhary [place] Problem Active 2019-07-03 21:23:40 Jeremy Chaudhary Fibromyositis (disorder) Fibr omyositis (disorder) Active Problem 07/03/2019 [facility] Problem Active 2019-07-03 21:23:40 Patricia Chaudhary Gastroesophageal reflux disease (disorder) Gastroesophageal reflux disease (disorder) Active Problem 07/03/2019 [facility] Problem Active 2019-07-03 21:23:40 Irene Chaudhary Generalized obesity (disorder) Generalized obesity (disorder) Active Problem 07/03/2019 [facility] Problem Active 2019-07-03 21:23:40 Jeremy Chaudhary Heart murmur (finding) Hear t murmur (finding) Active Problem 07/03/2019 [facility] Problem Active 2019-07-03 21:23:40 Patricia Chaudhary Hypothyroidism (disorder) Hypo thyroidism (disorder) Active Problem 07/03/2019 [facility] Problem Active 2019-07-03 21:23:40 Irene Chaudhary Irritable colon (disorder) Irr itable colon (disorder) Active Problem 07/03/2019 [facility] Problem Active 2019-07-03 21:23:40 Jeremy Chaudhary UNSPECIFIED TRACHEOSTOMY COMPLICATION UNSPECIFIED TRACHEOSTOMY COMPLICATION Active [facility] Diagnosis Active 2019-07-12 22:28:00 Irene Chaudhary Dyspnea Dyspnea Problem Active [facility] Thrombocytopenia Thrombocytopenia Problem Active [facility] Stenosis of trachea Trachea, stenosis Problem Active [facility] Tracheostomy complication Tracheostomy complication Problem Active [facility] Malfunction of tracheostomy Tracheostomy malfunction Problem Active [facility] Aspiration pneumonia Aspiration pneumonia Problem Active [facility] Diarrhea Diarrhea Problem Active 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 History of ESBL Klebsiella pneumoniae infection Problem Active [facility] Leukocytosis Leukocytosis Problem Active [facility] Urinary tract infection UTI (urinary tract infection) Problem Active [facility] Acute on chronic respiratory failure Acute and chronic respi ratory failure Problem Active [facility] Acute bronchitis Acute bronchitis Problem Active [facility] Hemoptysis Hemoptysis Problem Active [facility] Anxiety Problem Active [facility] Other specified diseases of upper respiratory tract Other specified diseases of upper respiratory tract 08/17/2018 03/01/2019 OSCAR Chaudhary Problem 2018-08-17 07:30:28 2019-03-01 11:10:18 2 11:10:18 [facility] Allergies, Adverse Reactions, Alerts Allergy Name Allergy Type Status Severity Reaction(s) Onset Date Inacti ve Date Treating Clinician Comments Source Penicillins DA Active MO 2019-08-02 00:00:00 [facility] heparin DA Active U 2019-08-02 00:00:00 [facility] No Known Drug Allergies DA Active U 2019-07-28 00:00:00 [facility] titanium DA Active 2018-12-03 00:00:00 [facility] Penicillins DA Active 2018-12-03 00:00:00 [facility] heparin DA Active 2018-12-03 00:00:00 [facility] Titanium Allergy to substance Active 2018-06-21 00:00:00 [facility] Penicillin Allergy to substance Active 2018-06-21 00:00:00 [facility] Penicillins DA Active 2017-11-11 00:00:00 [facility] titanium DA Active SV 2017-11-11 00:00:00 [facility] heparin DA Active 2017-11-11 00:00:00 [facility] penicillins penicillins Active [facility] heparin heparin Active [facility] Other Environmental Allergy<sup>1</sup> Other Environmental Allergy<sup>1</sup> Active [facility] vanesa Social History Social Habit Start Date Stop Date Quantity Comments Source Social History 2016-06-14 17:34:36 2016-06-14 17:34:36 [facility] Sex Assigned At 1950 00:00:00 1950 00:00:00 Female [facility] Medications Ordered Medication Name Filled Medication Name Start Date Stop Da te Current Medication? Ordering Clinician Indication Dosage Frequency Signature (SIG) Comments Components Source Fluconazole Fluconazole 2019-07-13 09:42:00 Yes 100 D aily [facility] Ascorbic Acid Ascorbic Acid 2019-07-13 07:50:00 Yes 500 Twice A Day [facility] Ferrous Sulfate Ferrous Sulfate 2019-07-13 07:50:00 Yes 325 Twice A Day [facility] levothyroxine 175 mcg (0.175 mg) oral tablet 2019-06-29 20:48:00 Yes 175 microgram = 1 tab, PO, Daily, # 15 tab, 0 Refill(s) Irene Chaudhary Metoclopramide 5 MG Oral Tablet 2019-06-29 20:48:00 No 5 mg = 1 tab, PO, Daily, # 30 tab, 0 Refill(s) Dora Chaudhary Clonidine Hydrochloride 0.1 MG Oral Tablet 2019-06-29 20:48:00 Yes 160, 0 Refill(s) Irene Chaudhary cefTRIAXone 1 g intravenous injection 2019-06-29 20:48:00 N o 1 gm, IV, 1G/100ML NS //INFUSE OVER 30 MIN IN Q12H, 0 Refill(s) Irene Chaudhary sennosides, JAIL 2019-06-29 02:00:00 No Notes: (Same as: Senokot) Irene Chaudhary POLYETHYLENE GLYCOL 3350 2019-06-28 14:00:00 No Notes: Dissolve in 8 oz of water or juice. (Same as: Miralax) Irene Chaudhary Allopurinol 2019-06-28 14:00:00 No Notes: ( Same as: Zyloprim) Irene Chaudhary Furosemide 40 MG Oral Tablet [Lasix] 2019-06-28 14:00:00 No Notes: (Same as: Lasix) May cause GI upset. Give with food or milk. Irene Chaudhary Thyroxine 2019-06-28 14:00:00 No Notes: Take 1 hour before or 2 hours after meal; Enteral feeds may interefere with the absorption of this medication. (Same as: Levothroid) Patricia Chaudhary Sodium Chloride 0.9% IV 1,000 mL 2019-06-28 04:57:00 No 1,000 mL, Rate: 75 ml/hr, Infuse over: 13.3 hr, Route: IV, Dosing Weight 81.818 kg, Total Volume: 1,000, Start date: 06/27/19 23:57:00 CDT, Duration: 30 day, Stop date: 07/27/19 23:56:00 SENIOR TECHNICAL WRITER, 2, m2, 0 [facility] Oxycodone Hydrochloride 5 MG Oral Tablet 2019-06-28 02:38:00 No Notes: (Same as: Roxicodone) [facility] Naloxone 2019-06-28 02:38:00 No Notes: Same as Narcan [facility] Melatonin 2019-06-28 02:38:00 No Notes: (Sa me as: Melatonin) [facility] Amitriptyline 2019-06-28 02:00:00 No Notes: (Same as: Elavil) [facility] ondansetron (ANES) 2019-06-28 00:26:00 No Route: IV, Drug form: INJ, ONCE, Stop date: 06/27/19 19:26:00 CDT [facility] glycopyrrolate (ANES) 2019-06-28 00:26:00 No Route: IV, Drug form: INJ, ONCE, Stop date: 06/27/19 19:26:00 CDT [facility] neostigmine (ANES) 2019-06-28 00:26:00 No Route: IV, Drug form: INJ, ONCE, Stop date: 06/27/19 19:26:00 CDT [facility] dexamethasone (ANES) 2019-06-27 23:53:00 No Route: IV, Drug form: INJ, ONCE, Stop date: 06/27/19 18:53:00 CDT [facility] fentaNYL (ANES) 2019-06-27 23:38:00 No Route: IV, Drug form: INJ, ONCE, Stop date: 06/27/19 18:38:00 [facility]T [facility] lidocaine (ANES) 2019-06-27 23:33:00 No Route: IV, Drug form: INJ, ONCE, Stop date: 06/27/19 18:33:00 CDT [facility] propofol (ANES) 2019-06-27 23:33:00 No Route: IV, Drug form: INJ, ONCE, Stop date: 06/27/19 18:33:[address] rocuronium (ANES) 2019-06-27 23:23:00 No Route: IV, Drug form: INJ, ONCE, Stop date: 06/27/19 18:23:[address] [facility] phenylephrine (ANES) 2019-06-27 23:23:00 No Route: IV, Drug form: INJ, ONCE, Stop date: 06/27/19 18:23:00 CDT [facility] Lactated Ringers Injection IV ([facility]) 1000 mL 2019-06-27 22:32:00 No Route: IV, Total Volume: 1,000, Start date: 06/27/19 17:32:00 CDT, Stop date: 06/27/19 18:32:00 CDT [facility] Dextrose 50% Syringe 2019-06-27 22:30:00 No 12.5 gm, 25 mL, Route: IVP, Drug Form: INJ, Dosing Weight 81.818, kg, PRN, PRN Blood Glucose Results, Start date: 06/27/19 17:30:00 CDT, Duration: 30 day, Stop date: 07/27/19 16:29:00 SENIOR TECHNICAL WRITER, 0 [facility] Glucagon 2019-06-27 22:30:00 No 1 mg, Route: IM, Drug form: PDR/INJ, PRN, Dosing Weight 81.818, kg, PRN Blood Glucose Results, Start date: 06/27/19 17:30:00 CDT, Duration: 30 day, Stop date: 07/27/19 16:29:00 SENIOR TECHNICAL WRITER, 0 [facility] Insulin regular 2019-06-27 22:30:00 No Notes: (Same as: Humulin R) Roll in palms of hands gently; Do not shake vigorously. WASTE: F/P - Black; E - Municipal Trash Bin Stable for 31 days at room temperature Expires in days from Date [facility] Dextrose 50% Syringe 2019-06-27 22:06:00 No 12.5 gm, 25 mL, Route: IVP, Drug Form: INJ, Dosing Weight 81.818, kg, PRN, PRN Blood Glucose Results, Start date: 06/27/19 17:06:00 CDT, Duration: 30 day, Stop date: 07/27/19 16:05:00 SENIOR TECHNICAL WRITER, 0 [facility] Glucagon 2019-06-27 22:06:00 No 1 mg, Route: IM, Drug form: PDR/INJ, PRN, Dosing Weight 81.818, kg, PRN Blood Glucose Results, Start date: 06/27/19 17:06:00 CDT, Duration: 30 day, Stop date: 07/27/19 16:05:00 SENIOR TECHNICAL WRITER, 0 [facility] Bisacodyl 2019-06-27 22:06:00 No Notes: (Same As: Dulcolax, Bisco-Lax) [facility] Ondansetron 2019-06-27 22:06:00 No Notes: (Same as: Zofran) MEDICATION WASTE Product Size: 4 mg Product Wasted: ___ mg [facility] Melatonin 2019-06-27 22:06:00 No Notes: (Sa me as: Melatonin) [facility] Acetaminophen 2019-06-27 22:06:00 No Notes: Do not exceed 4 gm/day. (Same as: Tylenol) [facility] Saline Flush 0.9% 2019-06-27 20:12:00 No 10 mL, Route: IVP, Drug Form: INJ, Dosing Weight 81.818, kg, PRN, PRN Line Flush, Start date: 06/27/19 15:12:00 CDT, Duration: 30 day, Stop date: 07/27/19 14:11:00 SENIOR TECHNICAL WRITER, 0 [facility] potassium chloride 2018-11-07 15:00:00 No Notes: (Same as: Potassium Chloride) [facility] Thyroxine 2018-11-07 15:00:00 No Notes: Take 1 hour before or 2 hours after meal; Enteral feeds may interefere with the absorption of this medication. (Same as: Levothroid) [facility] Furosemide 40 MG Oral Tablet [Lasix] 2018-11-07 15:00:00 No Notes: (Same as: Lasix) May cause GI upset. Give with food or milk. [facility] Allopurinol 2018-11-07 15:00:00 No Notes: ( Same as: Zyloprim) [facility] Jet Metformin hydrochloride 500 MG Oral Tablet 2018-11-07 14:00:00 No Notes: (Same as: Glucophage) Take with meal [facility] Acetaminophen 2018-11-07 06:00:00 No Notes: Max acetaminophen = 4000mg/day (4 gm/day). (Same as: Tylenol) [facility] Dicyclomine 2018-11-07 03:00:00 No Notes: ( Same as:Bentyl) [facility] Amitriptyline 2018-11-07 03:00:00 No Notes: (Same as: Elavil) [facility] tramadol hydrochloride 50 MG Oral Tablet 2018-11-06 23:00:00 No Notes: Not to exceed 400mg/day. (Same As: Ultram) [facility] Docusate 2018-11-06 23:00:00 No Notes: (Prasanth e as: Colace) [facility] Ondansetron 2018-11-06 23:00:00 No Notes: (Same as: Zofran) MEDICATION WASTE Product Size: 4 mg Product Wasted: ___ mg [facility] Promethazine 2018-11-06 22:16:00 No Notes: Do not give IV push. (Same as: Phenergan) [facility] Ondansetron 2018-11-06 22:16:00 No Notes: (Same as: Zofran) MEDICATION WASTE Product Size: 4 mg Product Wasted: ___ mg [facility] Naloxone 2018-11-06 22:16:00 No Notes: Same as Narcan [facility] Oxycodone 2018-11-06 22:16:00 No Notes: (Sa me as: Roxicodone) [facility] Acetaminophen 2018-11-06 22:16:00 No Notes: Max acetaminophen 4000 mg/day (4 gm/day). (Same as: Tylenol Extra Strength) [facility] Labetalol 2018-11-06 22:16:00 No 10 mg, 2 mL, Route: IVP, Drug form: INJ, Q5Min, Dosing Weight 86.364, kg, PRN Elevated BP, Start date: 11/06/18 16:16:00 SENIOR TECHNICAL WRITER, Duration: 5 doses or times, Stop date: 11/07/18 0:00:00 [facility] esmolol 2018-11-06 22:16:00 No Notes: (Same as: Brevibloc) [facility] Flumazenil 2018-11-06 22:16:00 No Notes: (S melanie as: Romazicon) [facility] glycopyrrolate ([facility]) 2018-11-06 22:15:00 No Route: IV, Drug form: INJ, ONCE, Stop date: 11/06/18 16:15:00 [facility] ondansetron ([facility]) 2018-11-06 22:15:00 No Route: IV, Drug form: INJ, ONCE, Stop date: 11/06/18 16:15:00 [facility] neostigmine ([facility]) 2018-11-06 22:15:00 No Route: IV, Drug form: INJ, ONCE, Stop date: 11/06/18 16:15:00 [facility] dexamethasone ([facility]) 2018-11-06 22:11:00 No Route: IV, Drug form: INJ, ONCE, Stop date: 11/06/18 16:11:00 [facility] fentaNYL ([facility]) 2018-11-06 22:11:00 No Route: IV, Drug form: INJ, ONCE, Stop date: 11/06/18 16:11:00 SENIOR TECHNICAL WRITER [facility] propofol ([facility]) 2018-11-06 22:11:00 No Route: IV, Drug form: INJ, ONCE, Stop date: 11/06/18 16:11:00 SENIOR TECHNICAL WRITER [facility] rocuronium ([facility]) 2018-11-06 21:56:00 No Route: IV, Drug form: INJ, ONCE, Stop date: 11/06/18 15:56:00 SENIOR TECHNICAL WRITER [facility] Lactated Ringers Injection IV ([facility]) 1000 mL 2018-11-06 21:16:00 No Route: IV, Total Volume: 1,000, Start date: 11/06/18 15:16:00 SENIOR TECHNICAL WRITER, Stop date: 11/06/18 16:16:00 [facility] sugammadex 2018-11-06 20:59:00 No Notes: (S melanie as: Bridion) Irene Chaudhary 8 HR Acetaminophen 650 MG Extended Release Tablet [Tylenol] 2018-11-02 16:19:00 Yes 1,300 mg = 2 tab, PO, Q8H, 0 Refill(s) Irene Chaudhary potassium chloride 20 mEq oral tablet, extended release 2018-11-02 16:18:00 Yes 20 mEq = 1 tab, PEG, Daily, # 30 tab, 3 Refill(s) Irene Chaudhary Furosemide 40 MG Oral Tablet [Lasix] 2018-11-02 16:17:00 Ye s 40 mg = 1 tab, PEG, Daily, # 30 tab, 0 Refill(s) Irene Chaudhary levothyroxine 150 mcg (0.15 mg) oral tablet 2018-11-02 16:17:00 Yes 150 microgram = 1 tab, PEG, Daily, # 30 tab, 0 Refill(s) Irene Chaudhary allopurinol 100 mg oral tablet 2018-11-02 16:15:00 Yes 100 mg = 1 tab, PEG, Daily, # 60 tab, 0 Refill(s) Calderon Chaudhary Folic Acid Folic Acid 2018-08-14 07:37:00 Yes 1 Cathy ly [facility] Acetaminophen With Codeine (Tylenol With Codeine #3 Ta blet) 1 Each TABLET Acetaminophen With Codeine (Tylenol With Codeine #3 Tablet) 1 Each TABLET 2018-08-04 09:13:00 Yes 300 Every 6 Hours for Pain [facility] Loperamide Hcl (Imodium*) 2 Mg CAP Loperamide Hcl (Imodium*) 2 Mg CAP 2018-08-04 09:13:00 Yes 2 Three Times A Day as needed for Diarrhea [facility] Vancomycin Hcl (Vancocin Hcl) 250 Mg CAPSULE Vancomyci n Hcl (Vancocin Hcl) 250 Mg CAPSULE 2018-08-04 09:13:00 Yes 250 Every 6 Hours [facility] Loperamide Hcl (Imodium*) 2 Mg CAP Loperamide Hcl (Imodium*) 2 Mg CAP 2018-06-28 09:37:00 2018-08-04 00:00:00 No 2 Three Times A Day as needed for Diarrhea [facility] Vancomycin Hcl (Vancocin Hcl) 250 Mg CAPSULE Vancomyci n Hcl (Vancocin Hcl) 250 Mg CAPSULE 2018-06-28 09:37:00 2018-08-04 00:00:00 No 250 Every 6 Hours [facility] Allopurinol Allopurinol 2018-06-28 09:35:00 Yes 100 D aily [facility] Amitriptyline Hcl Amitriptyline Hcl 2018-06-28 09:35:00 Yes 25 Bedtime [facility] Clonidine Hcl (Catapres) 0.1 Mg TABLET Clonidine Hcl (Catapr es) 0.1 Mg TABLET 2018-06-28 09:35:00 Yes .1 Every 8 Hours as n eeded for Sbp>160 [facility] Furosemide (Lasix) 40 Mg TABLET Furosemide (Lasix) 40 Mg TAB LET 2018-06-28 09:35:00 Yes 40 Daily [facility] Insulin Aspart (Novolog) 100 Units/1 Ml INJ Insulin As part (Novolog) 100 Units/1 Ml INJ 2018-06-28 09:35:00 Yes 0 Every 6 Hours [facility] Lactobacillus Acidophilus (Acidophilus) 1 Each TAB.ELMA W Lactobacillus Acidophilus (Acidophilus) 1 Each TAB.CHEW 2018-06-28 09:35:00 Yes 1 Twice A Day [facility] Levothyroxine Sodium (Synthroid) 75 Mcg TAB Levothyrox ine Sodium (Synthroid) 75 Mcg TAB 2018-06-28 09:35:00 Yes 75 Daily@06 [facility] Lorazepam Lorazepam 2018-06-28 09:35:00 Yes .5 Three Times A Day as needed for Anxiety [facility] Metoclopramide Hcl (Reglan) 5 Mg TABLET Metoclopramide Hcl ( Reglan) 5 Mg TABLET 2018-06-28 09:35:00 Yes 5 Three Times A Day [facility] Mucomyst Mucomyst 2018-06-28 09:35:00 Yes 4 Twice A Day as needed for Thick Secretions [facility] Potassium Chloride (K Dur*) 10 Meq TABCR Potassium Chl oride (K Dur*) 10 Meq TABCR 2018-06-28 09:35:00 Yes 20 Daily [facility] Sitagliptin Phosphate (Januvia) 100 Mg TABLET Sitaglip tin Phosphate (Januvia) 100 Mg TABLET 2018-06-28 09:35:00 Yes 50 Daily [facility] Acetaminophen With Codeine (Tylenol With Codeine #3 Ta blet) 1 Each TABLET Acetaminophen With Codeine (Tylenol With Codeine #3 Tablet) 1 Each TABLET 2018-06-28 09:35:00 2018-08-04 00:00:00 No 300 Every 6 Hours for Pain [facility] Cholestyramine (Cholestyramine Light Packet) 4 Gm PACK Cholestyramine (Cholestyramine Light Packet) 4 Gm PACK 2018-06-28 09:35:00 2018-08-04 00:00:00 No 4 Twice A Day as needed for Diarrhea [facility] Simethicone Simethicone 2018-06-28 09:35:00 2018-08-04 00:00:00 No 80 After Meals And At Bedtime as needed for Gas [facility] Cholestyramine (Cholestyramine Light Packet) 4 Gm PACK Cholestyramine (Cholestyramine Light Packet) 4 Gm PACK 2018-06-06 08:41:00 2018-06-28 00:00:00 No 4 Twice A Day as needed for Diarrhea [facility] Mucomyst Mucomyst 2018-04-15 08:49:00 2018-06-28 00:00:00 No 4 Twice A Day as needed for Thick Secretions [facility] Clonidine Hcl (Catapres) 0.1 Mg TABLET Clonidine Hcl (Catapr es) 0.1 Mg TABLET 2018-04-15 08:48:00 2018-06-28 00:00:00 No .1 Every 8 Hours as needed for Sbp>160 [facility] Insulin Aspart (Novolog) 100 Units/1 Ml INJ Insulin As part (Novolog) 100 Units/1 Ml INJ 2018-04-13 08:05:00 2018-06-28 00:00:00 No 0 Ev lynne 6 Hours [facility] Potassium Chloride (K Dur*) 10 Meq TABCR Potassium Chl oride (K Dur*) 10 Meq TABCR 2018-04-13 08:01:00 2018-06-28 00:00:00 No 20 Koby y [facility] Balm Felipe/De Berry Oil (Venelex Ointment) 60 Gm OINT.. .G. Balm [place]/De Berry Oil (Venelex Ointment) 60 Gm OINT...G. 2018-03-26 15:39:00 2018-04-13 00:00:00 No 60 Twice A Day [facility] Dextrose (Dextrose 50%-Water Syringe) 50 Ml INJ Dextro se (Dextrose 50%-Water Syringe) 50 Ml INJ 2018-03-26 15:39:00 2018-04-13 00:00:00 No 50 As Needed as needed for Blood Sugar [facility] Levalbuterol Hcl (Xopenex) 1.25 Mg/3 Ml [facility] Leval buterol Hcl (Xopenex) 1.25 Mg/3 Ml VIAL.[facility] 2018-03-26 15:39:00 2018-04-13 00:00:00 No 1.25 Rt Q6h [facility] Lorazepam Lorazepam 2018-03-26 15:39:00 2018-04-13 00:00:00 No 1 Every 6 Hours as needed for Agitation [facility] Vancomycin Hcl (Vancocin Hcl) 250 Mg CAPSULE Vancomyci n Hcl (Vancocin Hcl) 250 Mg CAPSULE 2018-03-09 08:23:00 2018-04-13 00:00:00 No 250 Every 6 Hours [facility] Metoprolol Tartrate (Lopressor) 25 Mg TAB Metoprolol T artrate (Lopressor) 25 Mg TAB 2018-03-09 07:21:00 Yes 25 Every 12 Hours [facility] Ascorbic Acid Ascorbic Acid 2018-03-09 07:21:00 2019-07-13 00:00:00 No 500 Twice A Day [facility] Cholestyramine (Cholestyramine Light Packet) 4 Gm PACK Cholestyramine (Cholestyramine Light Packet) 4 Gm PACK 2018-03-09 07:21:00 2018-08-04 00:00:00 No 4 Twice A Day as needed for Diarrhea [facility] Ferrous Sulfate Ferrous Sulfate 2018-03-09 07:21:00 2018-04-13 00:00:00 No 325 Twice Daily With Meals [facility] Acetaminophen Acetaminophen 2018-01-20 13:56:00 Yes 650 Every 4 Hours as needed for Pain And Temperature [facility] Balsam Felipe/De Berry Oil (Venelex Ointment) 60 Gm OINT.. .G. Balsam [place]/De Berry Oil (Venelex Ointment) 60 Gm OINT...G. 2018-01-20 13:56:00 Yes 0 Daily [facility] Ipratropium [place] Ipratropium [place] 2018-01-20 13:56:00 Yes 2.5 Rt Q6h [facility] Levalbuterol Hcl (Xopenex) 0.63 Mg/3 Ml VIAL.NEB Leval buterol Hcl (Xopenex) 0.63 Mg/3 Ml VIAL.NEB 2018-01-20 13:56:00 Yes .63 Rt Q6h as needed for Shorntess Of Breath [facility] Simethicone Simethicone 2018-01-20 13:56:00 Yes 8 0 After Meals And At Bedtime as needed for Gas [facility] Guaifenesin (Mucinex) 600 Mg TABLET.ER Guaifenesin (Mucinex) 600 Mg TABLET.ER 2018-01-20 13:56:00 2018-06-06 00:00:00 No 600 Every 6 Hours [facility] Calcium Carbonate Calcium Carbonate 2018-01-20 13:56:00 2018-04-13 00 :00:00 No 500 Daily [facility] Cholestyramine (Cholestyramine Light Packet) 4 Gm PACK Cholestyramine (Cholestyramine Light Packet) 4 Gm PACK 2018-01-20 13:56:00 2018-04-13 00:00:00 No 4 Twice A Day as needed for Diarrhea [facility] Levalbuterol Hcl (Xopenex) 0.63 Mg/3 Ml VIAL.NEB Leval buterol Hcl (Xopenex) 0.63 Mg/3 Ml VIAL.NEB 2018-01-20 13:56:00 2018-04-13 00:00:00 No . 63 Rt Q4h [facility] Neomy Sulf/Bacitrac Zn/Poly (Triple Antibiotic Ointmen t) 28 Gm OINT...G. Neomy Sulf/Bacitrac Zn/Poly (Triple Antibiotic Ointment) 28 Gm OINT...G. 2018-01-20 13:56:00 2018-04-13 00:00:00 No 0 Three Times A Da y [facility] Saline 0.65% Gregorio Soln Saline 0.65% Gregorio Soln 2018-01-20 13:56:00 2018-04-13 00:00:00 No 0 Every 4 Hours While Awake [facility] Metoprolol Succinate (Toprol Xl) 25 Mg TAB.ER.24H Meto prolol Succinate (Toprol Xl) 25 Mg TAB.ER.24H 2018-01-20 13:56:00 2018-03-09 00:00:00 No 12.5 Daily [facility] Insulin Regular, Human (Humulin R) 100 Unit/1 Ml VIAL Insulin Regular, Human (Humulin R) 100 Unit/1 Ml VIAL 2018-01-20 13:56:00 2018-02-24 00:00:00 No 0 Every 6 Hours [facility] Magnesium Oxide Magnesium Oxide 2018-01-20 13:56:00 2018-02-24 00:00:00 No 400 Twice A Day [facility] Pantoprazole Sod (Protonix) 40 Mg/Ml SUSP Pantoprazole Sod (Protonix) 40 Mg/Ml SUSP 2018-01-20 13:56:00 2018-02-24 00:00:00 No 40 Koby y [facility] Albuterol 0.833 MG/ML / Ipratropium [place] 0.167 MG/ML Inha lant Solution 2016-06-15 18:20:00 No 3 mL, Route: NEB, Dosing Weight 152.273, kg, ONCE, STAT, Start date: 06/15/16 13:20:00 CDT, Stop date: 06/15/16 13:20:00 CDT Irene Chaudhary Calcium Chloride 0.0014 MEQ/ML / Potassi um Chloride 0.004 MEQ/ML / Sodium Chloride 0.103 MEQ/ML / Sodium Lactate 0.028 MEQ/ML Injectable Solution 2016-06-15 18:20:00 No 1,000 mL, Rate: 25 ml/hr, Infuse over: 40 hr, Route: IV, Dosing Weight 152.273 kg, Total Volume: 1,000, Start date: 06/15/16 13:20:00 CDT, Duration: 30 day, Stop date: 07/15/16 13:19:00 CDT [facility] [place] Sodium Chloride 0.154 MEQ/ML Injectable Solution 2016-06-15 18:2 0:00 No 500 mL, Rate: 25 ml/hr, Infu se over: 20 hr, Route: IV, Dosing Weight 152.273 kg, Total Volume: 500, Start date: 06/15/16 13:20:00 CDT, Duration: 30 day, Stop date: 07/15/16 13:19:00 CDT Dora Chaudhary dicyclomine 20 mg oral tablet 2016-06-14 17:57:00 Yes 20 mg = 1 tab, PO, QID, # 28 tab, 0 Refill(s) Irene Chaudhary omeprazole 40 mg oral delayed release capsule 2016-06-14 17:56:0 0 Yes 40 mg = 1 cap, PO, Daily, # 30 cap, 0 Refill(s) Irene Chaudhary losartan 100 mg oral tablet 2016-06-14 17:56:00 Yes 100 mg = 1 tab, PO, Daily, # 30 tab, 0 Refill(s) Dora Chaudhary sitagliptin 100 MG Oral Tablet [Marckuvia] 2016-06-14 17:56:00 Yes 100 mg = 1 tab, PO, Daily, # 30 tab, 0 Refill(s) Irene Chaudhary amitriptyline 25 mg oral tablet 2016-06-14 17:56:00 Yes 25 mg = 1 tab, PO, Bedtime, # 30 tab, 1 Refill(s) Irene Chaudhary Metformin hydrochloride 500 MG Oral Tablet 2016-06-14 17:55:00 Yes 1,000 mg = 2 tab, PO, BID-Meals, # 30 tab, 0 Refill(s) Irene Chaudhary Acetaminophen With Codeine (Tylenol With Codeine #3 Ta blet) 1 Each TABLET Acetaminophen With Codeine (Tylenol With Codeine #3 Tablet) 1 Each TABLET 2018-06-28 00:00:00 No 300 Every 6 Hours for Pa in [facility] Allopurinol Allopurinol 2018-06-28 00:00:00 No 100 D aily [facility] Amitriptyline Hcl Amitriptyline Hcl 2018-06-28 00:00:00 No 25 Bedtime [facility] Budesonide (Budesonide Ec) 3 Mg CAPDR...ER Budesonide (Budesonide Ec) 3 Mg CAPDR...ER 2018-06-28 00:00:00 No 3 Daily [facility] Furosemide (Lasix) 40 Mg TABLET Furosemide (Lasix) 40 Mg TABLET 2018-06-28 00:00:00 No 40 Daily [facility] Furosemide (Lasix) 40 Mg TABLET Furosemide (Lasix) 40 Mg TABLET 2018-06-28 00:00:00 No 40 Daily [facility] Lactobacillus Acidophilus (Acidophilus) 1 Each TAB.ELMA W Lactobacillus Acidophilus (Acidophilus) 1 Each TAB.CHEW 2018-06-28 00:00:00 No 1 Daily [facility] Levothyroxine Sodium Levothyroxine Sodium 2018-06-28 00:00:00 No 50 Daily [facility] Levothyroxine Sodium (Synthroid) 50 Mcg TAB Levothyrox ine Sodium (Synthroid) 50 Mcg TAB 2018-06-28 00:00:00 No 50 Today At 6:30AM [facility] Lorazepam Lorazepam 2018-06-28 00:00:00 No .5 Three Times A Day as needed for Anxiety [facility] Lorazepam Lorazepam 2018-06-28 00:00:00 No .5 Every 8 Hours for Anxiety [facility] Metoclopramide Hcl (Reglan) 5 Mg TABLET Metoclopramide Hcl ( Reglan) 5 Mg TABLET 2018-06-28 00:00:00 No 5 Three Times A Day [facility] Metoclopramide Hcl Metoclopramide Hcl 2018-06-28 00:00:00 No 5 Three Times A Day [facility] Simethicone Simethicone 2018-06-28 00:00:00 No 8 0 After Meals And At Bedtime [facility] Sitagliptin Phosphate (Januvia) 100 Mg TABLET Sitaglip tin Phosphate (Januvia) 100 Mg TABLET 2018-06-28 00:00:00 No 50 Daily [facility] Sitagliptin Phosphate (Januvia) 100 Mg TABLET Sitaglip tin Phosphate (Januvia) 100 Mg TABLET 2018-06-28 00:00:00 No 50 Daily [facility] Lactobac Cmb #3/Fos/Pantethine (Probiotic & Acidophilu s Cap) 1 Each CAPSULE Lactobac Cmb #3/Fos/Pantethine (Probiotic & Acidophilus Cap) 1 Each CAPSULE 2018-06-06 00:00:00 No 1 Every 8 Hours [facility] Acetaminophen With Codeine (Tylenol With Codeine #3 Ta blet) 1 Each TABLET Acetaminophen With Codeine (Tylenol With Codeine #3 Tablet) 1 Each TABLET 2018-04-17 00:00:00 No 300 Every 4 Hours as nee ded for Pain [facility] Allopurinol Allopurinol 2018-04-17 00:00:00 No 100 D aily [facility] Amitriptyline Hcl Amitriptyline Hcl 2018-04-17 00:00:00 No 25 Bedtime [facility] Calcium Otc Calcium Otc 2018-04-13 00:00:00 No 500 [facility] Dicyclomine Hcl Dicyclomine Hcl 2018-04-13 00:00:00 No 20 Four Times Daily [facility] Famotidine (Pepcid) 20 Mg TABLET Famotidine (Pepcid) 20 Mg TABLE T 2018-04-13 00:00:00 No 40 Twice A Day [facility] Novolog Ss Novolog Ss 2018-04-13 00:00:00 No [facility] Metronidazole (Flagyl) 250 Mg TABLET Metronidazole (Flagyl) 250 Mg TABLET 2018-03-09 00:00:00 No 500 Every 8 Hours [facility] Ipratropium/Albuterol Sulfate (Combivent Respimat Inha l [place]) 4 Gm AER.W.ADAP Ipratropium/Albuterol Sulfate (Combivent Respimat Inhal [place]) 4 Gm AER.W.ADAP 2018-02-24 00:00:00 No 4 Every 6 Hours Whil e Awake [facility] Metformin Hcl Metformin Hcl 2018-02-24 00:00:00 No 1000 Twice A Day [facility] Potassium Chloride Potassium Chloride 2018-02-24 00:00:00 No 10 Twice A Day [facility] Prednisone Prednisone 2018-02-24 00:00:00 No 20 Cathy ly [facility] Vital Signs Vital Name Observation Time Observation Value Comments Source Weight 2020-02-29 16:01:00 137 [lb_av] [facility] BMI (Body Mass Index) 2020-02-29 16:01:00 20.8 kg/m2 [facility] Weight 2020-02-10 02:21:00 137 [lb_av] [facility] BMI (Body Mass Index) 2020-02-10 02:21:00 20.8 kg/m2 [facility] Body Temperature 2019-09-21 11:44:00 98.1 [degF] [facility] Temperature Oral (F) 2019-07-01 17:01:00 97.6 F [facility] Heart Rate 2019-07-01 17:01:00 [facility] Systolic (mm Hg) 2019-07-01 17:01:00 Jeremy [facility] [place] Diastolic (mm Hg) 2019-07-01 17:01:00 [facility] [place] Temperature Oral (F) 2019-07-01 13:09:00 97.6 F [facility] Rate 2019-07-01 13:09:00 [facility] [place] Systolic (mm Hg) 2019-07-01 13:09:00 Jeremy rial [place] Diastolic (mm Hg) 2019-07-01 13:09:00 [facility] Temperature Oral (F) 2019-07-01 04:55:00 100 F [facility] [place] Heart Rate 2019-07-01 04:55:00 [facility] Respitory Rate 2019-07-01 04:55:00 [facility] [place] Systolic (mm Hg) 2019-07-01 04:55:00 Jeremy [facility] Diastolic (mm Hg) 2019-07-01 04:55:00 Mem [facility] [place] Respitory Rate 2019-06-30 08:00:00 [facility] Respitory Rate 2019-06-30 05:18:00 [facility] [place] Height 2019-06-29 23:34:00 172.72 cm [facility] Height 2019-06-29 22:30:00 172.72 cm [facility] Height 2019-06-28 04:23:00 172.72 cm [facility] [place] Weight 2019-06-28 04:23:00 [facility] BMI Calculated 2019-06-28 04:23:00 [facility] Weight 2019-06-27 19:21:00 [facility] Temperature Oral (F) 2018-11-07 18:30:00 97.2 F [facility] [place] Heart Rate 2018-11-07 18:30:00 [facility] [place] Systolic (mm Hg) 2018-11-07 18:30:00 Jeremy [facility] Diastolic (mm Hg) 2018-11-07 18:30:00 Mem [facility] [place] Respitory Rate 2018-11-07 18:30:00 [facility] Heart Rate 2018-11-07 12:28:00 [facility] Temperature Oral (F) 2018-11-07 12:28:00 97.5 F [facility] [place] Systolic (mm Hg) 2018-11-07 12:28:00 Jeremy [facility] [place] Diastolic (mm Hg) 2018-11-07 12:28:00 [facility] Respitory Rate 2018-11-07 12:28:00 [facility] [place] Systolic (mm Hg) 2018-11-07 09:24:00 Jeremy rial [place] Diastolic (mm Hg) 2018-11-07 09:24:00 [facility] Respitory Rate 2018-11-07 09:24:00 [facility] [place] Temperature Oral (F) 2018-11-07 09:24:00 98.3 F [facility] [place] BMI Calculated 2018-11-06 18:50:00 [facility] [place] Weight 2018-11-06 18:50:00 [facility] Heart Rate 2018-11-06 18:15:00 [facility] Height 2018-11-02 16:20:00 175.26 cm [facility] [place] Respitory Rate 2016-06-15 21:17:00 [facility] [place] Systolic (mm Hg) 2016-06-15 21:17:00 Jeremy rial [place] Diastolic (mm Hg) 2016-06-15 21:17:00 Mem [facility] [place] Respitory Rate 2016-06-15 21:12:00 [facility] [place] Systolic (mm Hg) 2016-06-15 21:12:00 Jeremy rial [place] Diastolic (mm Hg) 2016-06-15 21:12:00 [facility] [place] Respitory Rate 2016-06-15 20:55:00 [facility] [place] Systolic (mm Hg) 2016-06-15 20:55:00 Jeremy [facility] Diastolic (mm Hg) 2016-06-15 20:55:00 [facility] [place] Temperature Oral (F) 2016-06-14 17:25:00 98.9 F [facility] Heart Rate 2016-06-14 17:25:00 [facility] Height 2016-06-14 17:23:00 172.72 cm [facility] BMI Calculated 2016-06-14 17:23:00 [facility] Weight 2016-06-14 17:23:00 [facility] Procedures Procedure Date / Time Performed Performing Clinician [facility] e Computed tomography of chest with contrast 2019-09-19 00:00:00 H MARK ANTHONY LINARES [facility] BLOOD TRANSFUSION SERVICE 2019-09-19 00:00:00 [facility] INSPECTION OF NASAL MUCOSA AND SOFT TISSUE, ENDO 2019-07-12 00:0 0:00 [facility] Computed tomography of chest with contrast 2019-07-11 00:00:00 H AMMARK ANTHONY CRISOSTOMO [facility] Computed tomography of soft tissues of neck with contrast 07-07-23 00:00:00 RYANN, MARK ANTHONY [facility] TRANSFUSE NONAUT PLATELETS IN PERIPH VEIN, OPEN 2019-07-11 00:00 :00 [facility] US abdomen complete 2019-05-09 00:00:00 MARK ANTHONY KERNS [facility] Hip joint operations [facility] Hip replacement<sup>1</sup> [facility] [place] Hysterectomy [facility] PEG - Percutaneous endoscopic gastrostomy [facility] Tracheostomy [facility] Plan of Care Planned Activity Planned Date Details Comments Source Instructions Generalized Anxiety Disorder [facility] Encounters Start Date/Time End Date/Time Encounter Type Admission Type Attendi [facility] Care Department Encounter ID Source 2020-02-29 16:13:00 2020-02-29 17:46:00 Departed Emergency Room [facility] [id number] [facility] dical [place] 2020-02-10 01:51:00 2020-02-10 07:39:00 Departed Emergency Room 1 PHOENIX CIFUENTES [facility] [id number] [facility] 2019-11-19 13:43:00 2019-11-19 18:44:00 Departed Emergency Room 1 ROMERO CAITLYN [facility] [id number] [facility] 2019-09-25 09:49:00 2019-09-25 16:49:00 Departed Emergency Room 1 DONOVAN MENJIVAR [facility] [id number] [facility] 2019-09-19 06:03:00 2019-09-21 14:48:00 Discharged Inpatient (obs) 1 ILAN STEIN [facility] [id number] [facility] 2019-07-10 22:26:00 2019-07-13 13:30:00 Discharged Inpatient 1 ILAN STEIN [facility] [id number] [facility] 2019-06-27 14:12:55 2019-07-01 14:10:00 Outpatient Ricardo, Shif a [facility] [id number] 2019-06-27 15:49:00 2019-06-27 14:12:00 Inpatient E [facility] MED [id number] [facility] 2019-06-14 17:40:00 2019-06-14 19:54:00 Departed Emergency Room 1 NATHAN CANNON [facility] [id number] [facility] 2019-05-09 09:21:00 2019-05-10 17:09:00 Discharged Inpatient 1 ILAN STEIN [facility] [id number] [facility] 2018-11-16 12:34:00 2018-11-16 21:40:00 Departed Emergency Room 1 WILIAM MARTINEZ [facility] [id number] [facility] 2018-11-06 18:20:00 2018-11-07 14:45:[address] [facility] [id number] 2018-11-06 18:20:00 2018-11-06 18:20:00 Outpatient [facility] [id number] [facility] 2018-08-12 06:34:00 2018-08-16 18:50:00 Discharged Inpatient 1 ILAN STEIN [facility] [id number] [facility] 2018-08-11 15:37:00 2018-08-11 23:59:[address] [facility] [id number] 2018-07-31 00:26:00 2018-08-04 19:30:00 Discharged Inpatient 1 ILAN STEIN [facility] [id number] [facility] 2018-06-21 15:33:00 2018-06-28 20:15:00 Discharged Inpatient 1 ILAN STEIN [facility] [id number] [facility] 2018-06-01 14:13:00 2018-06-06 18:21:00 Discharged Inpatient 1 ILAN STEIN [facility] [id number] [facility] 2018-05-14 06:09:00 2018-05-14 09:35:00 Departed Emergency Room 1 JENN MILLER [facility] [id number] [facility] 2018-04-14 11:59:00 2018-04-17 16:41:00 Discharged Inpatient 1 SHABBIR MÉNDEZ [facility] [id number] [facility] 2018-04-07 13:14:00 2018-04-07 18:25:00 Departed Emergency Room [facility] [id number] [facility] 2018-03-25 23:55:00 2018-03-26 21:45:00 Discharged Inpatient 1 PHOENIX CIFUENTES [facility] [id number] [facility] 2018-02-26 13:34:00 2018-03-09 13:35:00 Discharged Inpatient 1 ILAN STEIN [facility] [id number] [facility] 2018-02-10 18:18:00 2018-02-11 00:37:00 Departed Emergency Room 1 NATHANIEL SANTACRUZ [facility] [id number] [facility] 2018-01-06 18:52:00 2018-01-20 23:53:00 Discharged Inpatient ER ILAN STEIN [facility] [id number] [facility] 2017-10-25 03:00:00 2017-10-25 03:00:00 Registered Referred [facility] [id number] [facility] 2017-10-14 02:59:00 2017-10-14 02:59:00 Registered Referred [facility] [id number] [facility] 2017-10-10 02:58:00 2017-10-10 02:58:00 Registered Referred [facility] [id number] [facility] 2016-06-15 12:27:00 2016-06-15 16:15:00 Outpatient Joseph Hoffman [facility] [id number] Results Test Description Test Time Test Comments Results Result Comments Source CHEST SINGLE (PORTABLE) 2020-05-16 21:30:[address] [place] [address] Patient Name: MOJGAN CUMMINGS MR #: [id number] : 1950 Age/Sex: 70/F Req #: [id number] Adm Physician: Ordered by: PHOENIX CIFUENTES MD Report #: [id number] Location: ER Room/Bed: Procedure: [id number] DX/CHEST SINGLE (PORTABLE) Exam Date: 05/16/20 Exam Time: 2019 REPORT STATUS: Signed EXAMINATION: CHEST SINGLE (PORTABLE) INDICATION: Shortness of breath. COMPARISON: Multiple prior chest radiograph including most recent on 02/10/2020. FINDINGS: TUBES and LINES: Tracheostomy tube which terminates approxi mately 3.5 cm above the marlyn. LUNGS: Normal lung volumes. Lungs are clear. No consolidations. There are scattered calcified granulomas which are unchanged. PLEURA: No pleural effusion or pneumothorax. HEART AND MEDIASTINUM: The cardiomediastinal silhouette is unremarkable. BONES AND SOFT TISSUES: No acute osseous lesion. Soft tissues are unremarkable. UPPER ABDOMEN: No free air under the diaphragm. IMPRESSION: No acute thoracic radiographic abnormality. Signed by: Colin Do MD on 05/16/2020 9:36 PM Dictated By: COLIN DO MD 35 Transcribed By: BAMBI on 05/16/202135 COPY TO: PHOENIX CIFUENTES MD CHEST SINGLE (PORTABLE) 2020-02-10 04:21:00 [facility] [address] [address] Patient Name: MOJGAN CUMMINGS MR #: [id number] : 1950 Age/Sex: 70/F Req #: [id number] Adm Physician: Ordered by: PHOENIX CIFUENTES MD Report #: [id number] Location: ER Room/Bed: Procedure: [id number] DX/CHEST SINGLE (PORTABLE) Exam Date: 02/10/20 Exam Time: 309 REPORT STATUS: Signed EXAMINATION: CHEST SINGLE (PORTABLE) INDICATION: sob COMPARISON: Chest radiograph 11-19-2019. FINDINGS: TUBES and LINES: Tracheostomy cannula in stable position. LUNGS: Lungs are well inflated. There is no evidence of pneumo ilda or pulmonary edema. PLEURA: No pleural effusion or pneumothorax. HEART AND MEDIASTINUM: The cardiomediastinal silhouette is unremarkable. Tortuous thoracic aorta. BONES AND SOFT TISSUES: No acute osseous abnormality. Severe degenerative changes of bilateral shoulders. UPPER ABDOMEN: No free air under the diaphragm. IMPRESSION: No acute thoracic abnormality. Signed by: Dr. Radha Rocha MD on 02/10/2020 4:24 AM Dictated By: RADHA ROCHA MD 3 Transcribed By: BAMBI on 02/10/20423 COPY TO: PHOENIX CIFUENTES MD Blood leukocytes automated count (number/volume) 2020-02-10 02:40:00 Test Item White Blood Count (test code = 6690-2) 5.17 4.8-10.8 [facility] (number/volume)2020-02-10 02:40:00* Test Item Value Reference Range Interpretation Comments Red Blood Count (test code = 789-8) 3.79 3.6-5.1 [facility] (moles/volume)2020-02-10 02:40:00* Test Item Value Reference Range Interpretation Comments Hemoglobin (test code = 74216-9) 10.8 12.0-16.0 [facility] hematocrit (volume fraction)2020-02-10 02:40:00* Test Item Value Reference Range Interpretation Comments Hematocrit (test code = 4544-3) 33.4 34.2-44.1 [facility] mean corpuscular [id number] 02:40:00* Test Item Value Reference Range Interpretation Comments Mean Corpuscular Volume (test code = 787-2) 88.1 81-99 [facility] mean corpuscular hemoglobin (mass per erythrocyte)2020-02-10 02:40:00* Test Item Value Reference Range Interpretation Comments Mean Corpuscular Hemoglobin (test code = 785-6) 28.5 28-32 [facility] mean corpuscular hemoglobin concentration measurement (mass/volume)2020-02-10 02:40:00* Test Item Value Reference Range Interpretation Comments Mean Corpuscular Hemoglobin Concent (test code = 786-4) 32.3 31-35 [facility] ZhbRv-Wpr7737-27-24 02:40:00* Test Item Value Reference Range Interpretation Comments Red Cell Distribution Width (test code = 70996-6) 12.5 11.7 -14.4 [facility] platelet count (count/volume)2020-02-10 02:40:00* Test Item Value Reference Range Interpretation Comments Platelet Count (test code = 777-3) 43 140-360 Results repeated and called to SIMON JERONIMO at 0336 on 02/10/20 by Gil lowry. Read back and verified.[facility] segmented neutrophil count as percentage of total [id number] 02:40:00* Test Item Value Reference Range Interpretation Comments Neutrophils (%) (Auto) (test code = 89026-5) 62.0 38.7-80.0 [facility] lymphocyte count as percentage ot total [id number] 02:40:00* Test Item Value Reference Range Interpretation Comments Lymphocytes (%) (Auto) (test code = 736-9) 26.7 18.0-39.1 [facility] monocyte count as percentage of total ttlcijctfy5424-67-28 02:40:00* Test Item Value Reference Range Interpretation Comments Monocytes (%) (Auto) (test code = 5905-5) 6.4 4.4-11.3 [facility] eosinophil count as percentage of total ymvkwdmazx8913-39-48 02:40:00* Test Item Value Reference Range Interpretation Comments Eosinophils (%) (Auto) (test code = 713-8) 4.1 0.0-6.0 [facility] basophil count as percentage of total [id number] 02:40:00* Test Item Value Reference Range Interpretation Comments Basophils (%) (Auto) (test code = 706-2) 0.6 0.0-1.0 [facility] Tyler[facility] procedure less than one hour ovdhofpj8181-37-07 02:40:00* Test Item Value Reference Range Interpretation Comments IM GRANULOCYTES % (test code = IM GRANULOCYTES %) 0.2 0.0- 1.0 [facility] neutrophil count 2020-02-10 02:40:00* Test Item Value Reference Range Interpretation Comments Neutrophils # (Auto) (test code = 751-8) 3.2 2.1-6.9 [facility] Tyler[facility] lymphocytes count (number/volume) 2020-02-10 02:40:00* Test Item Value Reference Range Interpretation Comments Lymphocytes # (Auto) (test code = 61820-8) 1.4 1.0-3.2 [facility] monocytes automated count (number/volume)2020-02-10 02:40:00* Test Item Value Reference Range Interpretation Comments Monocytes # (Auto) (test code = 742-7) 0.3 0.2-0.8 [facility] TylerAutomated blood eosinophil count 2020-02-10 02:40:00* Test Item Value Reference Range Interpretation Comments Eosinophils # (Auto) (test code = 711-2) 0.2 0.0-0.4 [facility] TylerAutomated blood basophil count (count/volume)2020-02-10 02:40:00* Test Item Value Reference Range Interpretation Comments Basophils # (Auto) (test code = 704-7) 0.0 0.0-0.1 [facility] TylerFluoroscopic procedure less than one hour fkadwymz2976-44-15 02:40:00* Test Item Value Reference Range Interpretation Comments Absolute Immature Granulocyte (auto (melina t code = Absolute Immature Granulocyte (auto) 0.01 0-0.1 [facility] Station[facility]um or plasma sodium measurement (moles/volume)2020-02-10 02:40:00* Test Item Value Reference Range Interpretation Comments Sodium Level (test code = 2951-2) 141 136-145 [facility] Stationerum or plasma potassium measurement (moles/volume)2020-02-10 02:40:00* Test Item Value Reference Range Interpretation Comments Potassium Level (test code = 2823-3) 3.7 3.5-5.1 [facility] Stationerum or plasma chloride measurement (moles/volume)2020-02-10 02:40:00* Test Item Value Reference Range Interpretation Comments Chloride Level (test code = 2075-0) 109 98-107 [facility] Stationerum or plasma carbon dioxide, total measurement (moles/volume)2020-02-10 02:40:00* Test Item Value Reference Range Interpretation Comments Carbon Dioxide Level (test code = 2028-9) 21 22-29 [facility] Stationerum or plasma anion [id number] 02:40:00* Test Item Value Reference Range Interpretation Comments Anion Gap (test code = 14364-7) 14.7 8-16 [facility] Stationerum or plasma urea nitrogen measurement (mass/volume)2020-02-10 02:40:00* Test Item Value Reference Range Interpretation Comments Blood Urea Nitrogen (test code = 3094-0) 22 7-26 [facility] Stationerum or plasma creatinine measurement (mass/volume)2020-02-10 02:40:00* Test Item Value Reference Range Interpretation Comments Creatinine (test code = 2160-0) 0.71 0.57-1.11 [facility] Stationerum or plasma urea nitrogen/creatinine mass [id number] 02:40:00* Test Item Value Reference Range Interpretation Comments BUN/Creatinine Ratio (test code = 3097-3) 31 6-25 [facility] TylerEstimated glomerular filtration rate (GFR) kcbvjczhssymv8725-07-23 02:40:00* Test Item Value Reference Range Interpretation Comments Estimat Glomerular Filtration Rate (test code = 005098334) > 60 >60 Ranges were taken from the National Kidney Disease Education Program and the [facility] Kidney Foundation literature.Reference ranges:60 or greater: Nwwrbb87-14 ( for 3 consecutive months): Chronic kidney disease 15 or less: Kidney failureCHRISTUS Mother Frances Hospital – TylerGlucose xkwlpjztthk1287-32-20 02:40:00* Test Item Value Reference Range Interpretation Comments Glucose Level (test code = XRK1253) 86 74-118 [facility] Stationerum or plasma calcium measurement (mass/volume)2020-02-10 02:40:00* Test Item Value Reference Range Interpretation Comments Calcium Level (test code = 53506-6) 9.7 8.4-10.2 [facility] Stationerum or plasma total bilirubin measurement (mass/volume)2020-02-10 02:40:00* Test Item Value Reference Range Interpretation Comments Total Bilirubin (test code = 1975-2) 0.3 0.2-1.2 [facility] TylerFluoroscopic procedure less than one hour xhcsifus9337-71-75 02:40:00* Test Item Value Reference Range Interpretation Comments Aspartate Amino Transf (AST/SGOT) (test code = Aspartate Amino Transf (AST/SGOT)) 11 5-34 [facility] Stationerum or plasma alanine aminotransferase measurement (enzymatic activity/volume)2020-02-10 02:40:00* Test Item Value Reference Range Interpretation Comments Alanine Aminotransferase (ALT/SGPT) (test code = 1742-6) 9 0-55 [facility] Stationerum or plasma protein measurement (mass/volume)2020-02-10 02:40:00* Test Item Value Reference Range Interpretation Comments Total Protein (test code = 2885-2) 6.3 6.5-8.1 [facility] Stationerum or plasma albumin measurement (mass/volume)2020-02-10 02:40:00* Test Item Value Reference Range Interpretation Comments Albumin (test code = 1751-7) 3.6 3.5-5.0 [facility] TylerPlasma globulin measurement (mass/volume) 2020-02-10 02:40:00* Test Item Value Reference Range Interpretation Comments Globulin (test code = 28605-9) 2.7 2.3-3.5 [facility] Stationerum or plasma albumin/globulin mass osgzn2578-18-72 02:40:00* Test Item Value Reference Range Interpretation Comments Albumin/Globulin Ratio (test code = 1759-0) 1.3 0.8-2.0 [facility] Stationerum or plasma alkaline phosphatase measurement (enzymatic activity/volume)2020-02-10 02:40:00* Test Item Value Reference Range Interpretation Comments Alkaline Phosphatase (test code = 6768-6) 95 40-150 [facility] TylerBNP Jgg-gMis8913-99-24 02:40:00* Test Item Value Reference Range Interpretation Comments B-Type Natriuretic Peptide (test code = 35188-8) 31.4 0-100 [facility] Stationerum or plasma creatine kinase measurement (enzymatic activity/volume)2020-02-10 02:40:00* Test Item Value Reference Range Interpretation Comments Creatine Kinase (test code = 2157-6) 20 29-168 [facility] Stationerum or plasma creatine kinase MB measurement (mass/volume)2020-02-10 02:40:00* Test Item Value Reference Range Interpretation Comments Creatine Kinase MB (test code = 62522-8) 0.60 0-5.0 [facility] TylerTroponin I measurement by highly sensitive enzyme eppicmkpapw5041-21-18 02:40:00* Test Item Value Reference Range Interpretation Comments Troponin I (test code = 96582-1) < 0.001 0-0.300 [facility] leukocytes automated count (number/volume)2020-02-10 02:40:00* Test Item Value Reference Range Interpretation Comments White Blood Count (test code = 6690-2) 5.17 4.8-10.8 [facility] erythrocytes automated count (number/volume)2020-02-10 02:40:00* Test Item Value Reference Range Interpretation Comments Red Blood Count (test code = 789-8) 3.79 3.6-5.1 [facility] hemoglobin measurement (moles/volume)2020-02-10 02:40:00* Test Item Value Reference Range Interpretation Comments Hemoglobin (test code = 30834-4) 10.8 12.0-16.0 [facility] TylerAutomated blood hematocrit (volume fraction)2020-02-10 02:40:00* Test Item Value Reference Range Interpretation Comments Hematocrit (test code = 4544-3) 33.4 34.2-44.1 [facility] TylerAutomated erythrocyte mean corpuscular wbywaq8750-25-67 02:40:00* Test Item Value Reference Range Interpretation Comments Mean Corpuscular Volume (test code = 787-2) 88.1 81-99 [facility] TylerAutomated erythrocyte mean corpuscular hemoglobin (mass per erythrocyte)2020-02-10 02:40:00* Test Item Value Reference Range Interpretation Comments Mean Corpuscular Hemoglobin (test code = 785-6) 28.5 28-32 [facility] TylerAutomated erythrocyte mean corpuscular hemoglobin concentration measurement (mass/volume)2020-02-10 02:40:00* Test Item Value Reference Range Interpretation Comments Mean Corpuscular Hemoglobin Concent (test code = 786-4) 32.3 31-35 [facility] TylerRDW HgoSi-Gqr3141-51-24 02:40:00* Test Item Value Reference Range Interpretation Comments Red Cell Distribution Width (test code = 38866-0) 12.5 11.7 -14.4 [facility] TylerAutomated blood platelet count (count/volume)2020-02-10 02:40:00* Test Item Value Reference Range Interpretation Comments Platelet Count (test code = 777-3) 43 140-360 Results repeated and called to SIMON JERONIMO at 0336 on 02/10/20 by Gil lowry. Read back and verified.[facility] TylerAutomated blood segmented neutrophil count as percentage of total hbcnqesawi3317-47-42 02:40:00* Test Item Value Reference Range Interpretation Comments Neutrophils (%) (Auto) (test code = 06413-1) 62.0 38.7-80.0 [facility] as percentage ot total rlxzylfqwh5045-58-56 02:40:00* Test Item Value Reference Range Interpretation Comments Lymphocytes (%) (Auto) (test code = 736-9) 26.7 18.0-39.1 [facility] TylerAutomated blood monocyte count as percentage of total ipjrrbbqpl2255-47-38 02:40:00* Test Item Value Reference Range Interpretation Comments Monocytes (%) (Auto) (test code = 5905-5) 6.4 4.4-11.3 [facility] TylerAutomated blood eosinophil count as percentage of total mwjunfmwnu2319-19-65 02:40:00* Test Item Value Reference Range Interpretation Comments Eosinophils (%) (Auto) (test code = 713-8) 4.1 0.0-6.0 [facility] TylerAutomated blood basophil count as percentage of total ruyhekilyz8547-54-18 02:40:00* Test Item Value Reference Range Interpretation Comments Basophils (%) (Auto) (test code = 706-2) 0.6 0.0-1.0 [facility] TylerFluoroscopic procedure less than one hour lwntzzmh4822-23-21 02:40:00* Test Item Value Reference Range Interpretation Comments IM GRANULOCYTES % (test code = IM GRANULOCYTES %) 0.2 0.0- 1.0 [facility] TylerAutomated blood neutrophil count 2020-02-10 02:40:00* Test Item Value Reference Range Interpretation Comments Neutrophils # (Auto) (test code = 751-8) 3.2 2.1-6.9 [facility] TylerBlood lymphocytes count (number/volume) 2020-02-10 02:40:00* Test Item Value Reference Range Interpretation Comments Lymphocytes # (Auto) (test code = 75383-6) 1.4 1.0-3.2 [facility] TylerBlood monocytes automated count (number/volume)2020-02-10 02:40:00* Test Item Value Reference Range Interpretation Comments Monocytes # (Auto) (test code = 742-7) 0.3 0.2-0.8 [facility] TylerAutomated blood eosinophil count 2020-02-10 02:40:00* Test Item Value Reference Range Interpretation Comments Eosinophils # (Auto) (test code = 711-2) 0.2 0.0-0.4 [facility] TylerAutomated blood basophil count (count/volume)2020-02-10 02:40:00* Test Item Value Reference Range Interpretation Comments Basophils # (Auto) (test code = 704-7) 0.0 0.0-0.1 [facility] TylerFluoroscopic procedure less than one hour pcwrggdy0747-02-56 02:40:00* Test Item Value Reference Range Interpretation Comments Absolute Immature Granulocyte (auto (melina t code = Absolute Immature Granulocyte (auto) 0.01 0-0.1 [facility] TylerBlood platelets count by estimate (number/volume)2020-02-10 02:40:00* Test Item Value Reference Range Interpretation Comments Platelet Estimate (test code = 84414-7) MARKEDLY DECREASED [facility] TylerPlatelet jfqrfruowc1071-74-72 02:40:00* Test Item Value Reference Range Interpretation Comments Platelet Morphology Comment (test code = 30860-2) FEW LARGE [facility] TylerRBC asbhyhwyor0033-77-27 02:40:00* Test Item Value Reference Range Interpretation Comments Red Cell Morphology Comment (test code = 6742-1) NORMAL [facility] Stationerum or plasma sodium measurement (moles/volume)2020-02-10 02:40:00* Test Item Value Reference Range Interpretation Comments Sodium Level (test code = 2951-2) 141 136-145 [facility] Stationerum or plasma potassium measurement (moles/volume)2020-02-10 02:40:00* Test Item Value Reference Range Interpretation Comments Potassium Level (test code = 2823-3) 3.7 3.5-5.1 [facility] Stationerum or plasma chloride measurement (moles/volume)2020-02-10 02:40:00* Test Item Value Reference Range Interpretation Comments Chloride Level (test code = 2075-0) 109 98-107 [facility] Stationerum or plasma carbon dioxide, total measurement (moles/volume)2020-02-10 02:40:00* Test Item Value Reference Range Interpretation Comments Carbon Dioxide Level (test code = 2028-9) 21 22-29 [facility] Stationerum or plasma anion qhi1643-36-84 02:40:00* Test Item Value Reference Range Interpretation Comments Anion Gap (test code = 67630-6) 14.7 8-16 [facility] Stationerum or plasma urea nitrogen measurement (mass/volume)2020-02-10 02:40:00* Test Item Value Reference Range Interpretation Comments Blood Urea Nitrogen (test code = 3094-0) 22 7-26 [facility] Stationerum or plasma creatinine measurement (mass/volume)2020-02-10 02:40:00* Test Item Value Reference Range Interpretation Comments Creatinine (test code = 2160-0) 0.71 0.57-1.11 [facility] Stationerum or plasma urea nitrogen/creatinine mass wrgci0892-98-04 02:40:00* Test Item Value Reference Range Interpretation Comments BUN/Creatinine Ratio (test code = 3097-3) 31 6-25 [facility] TylerEstimated glomerular filtration rate (GFR) fnmrjbsmbxuht6706-95-69 02:40:00* Test Item Value Reference Range Interpretation Comments Estimat Glomerular Filtration Rate (test code = 756806115) > 60 >60 Ranges were taken from the National Kidney Disease Education Program and the [facility] literature.Reference ranges:60 or greater: Kgtjcd61-13 ( for 3 consecutive months): Chronic kidney disease 15 or less: Kidney failureCHRISTUS [facility] – TylerGlucose ytqkagrrwrj7282-78-72 02:40:00* Test Item Value Reference Range Interpretation Comments Glucose Level (test code = DMZ1149) 86 74-118 [facility] Stationerum or plasma calcium measurement (mass/volume)2020-02-10 02:40:00* Test Item Value Reference Range Interpretation Comments Calcium Level (test code = 35066-8) 9.7 8.4-10.2 [facility] Stationerum or plasma total bilirubin measurement (mass/volume)2020-02-10 02:40:00* Test Item Value Reference Range Interpretation Comments Total Bilirubin (test code = 1975-2) 0.3 0.2-1.2 [facility] TylerFluoroscopic procedure less than one hour bpklkvhq9421-33-93 02:40:00* Test Item Value Reference Range Interpretation Comments Aspartate Amino Transf (AST/SGOT) (test code = Aspartate Amino Transf (AST/SGOT)) 11 5-34 [facility] Stationerum or plasma alanine aminotransferase measurement (enzymatic activity/volume)2020-02-10 02:40:00* Test Item Value Reference Range Interpretation Comments Alanine Aminotransferase (ALT/SGPT) (test code = 1742-6) 9 0-55 [facility] Stationerum or plasma protein measurement (mass/volume)2020-02-10 02:40:00* Test Item Value Reference Range Interpretation Comments Total Protein (test code = 2885-2) 6.3 6.5-8.1 [facility] Stationerum or plasma albumin measurement (mass/volume)2020-02-10 02:40:00* Test Item Value Reference Range Interpretation Comments Albumin (test code = 1751-7) 3.6 3.5-5.0 [facility] TylerPlasma globulin measurement (mass/volume) 2020-02-10 02:40:00* Test Item Value Reference Range Interpretation Comments Globulin (test code = 75198-3) 2.7 2.3-3.5 [facility] Stationerum or plasma albumin/globulin mass rujhu4950-57-64 02:40:00* Test Item Value Reference Range Interpretation Comments Albumin/Globulin Ratio (test code = 1759-0) 1.3 0.8-2.0 [facility] Stationerum or plasma alkaline phosphatase measurement (enzymatic activity/volume)2020-02-10 02:40:00* Test Item Value Reference Range Interpretation Comments Alkaline Phosphatase (test code = 6768-6) 95 40-150 [facility] TylerBNP Bgq-nTdh8291-76-24 02:40:00* Test Item Value Reference Range Interpretation Comments B-Type Natriuretic Peptide (test code = 62906-4) 31.4 0-100 [facility] Stationerum or plasma creatine kinase measurement (enzymatic activity/volume)2020-02-10 02:40:00* Test Item Value Reference Range Interpretation Comments Creatine Kinase (test code = 2157-6) 20 29-168 [facility] Stationerum or plasma creatine kinase MB measurement (mass/volume)2020-02-10 02:40:00* Test Item Value Reference Range Interpretation Comments Creatine Kinase MB (test code = 41117-2) 0.60 0-5.0 [facility] TylerTroponin I measurement by highly sensitive enzyme cjtkycxccru4579-07-64 02:40:00* Test Item Value Reference Range Interpretation Comments Troponin I (test code = 01052-5) < 0.001 0-0.300 [facility] TylerArterial Blood [id number] 16:55:00* Test Item Value Reference Range Interpretation Comments Arterial Blood pH (test code = 2744-1) 7.44 7.31-7.41 H [facility] TylerArterial Blood Partial Pressure CO2 2019-11-19 16:55:00* Test Item Value Reference Range Interpretation Comments Arterial Blood Partial Pressure CO2 (test code = 2019-04) 40 41-51 L [facility] TylerArterial Blood Partial Pressure O2 2019-11-19 16:55:00* Test Item Value Reference Range Interpretation Comments Arterial Blood Partial Pressure O2 (test code = 2019-04) 128 80-105 H [facility] TylerArterial Blood [id number] 16:55:00* Test Item Value Reference Range Interpretation Comments Arterial Blood HCO3 (test code = 1960-4) 27 23-28 [facility] TylerArterial Blood Base Ibthjc6029-16-79 16:55:00* Test Item Value Reference Range Interpretation Comments Arterial Blood Base Excess (test code = 1925-7) 3.0 -2-3 [facility] TylerArterial Blood Oxygen Saturation 2019-11-19 16:55:00* Test Item Value Reference Range Interpretation Comments Arterial Blood Oxygen Saturation (test code = 2708-6) 99.0 95-98 H [facility] TylerFiO22020-03-02 16:55:00* Test Item Value Reference Range Interpretation Comments FiO2 (test code = FiO2) 40 [facility] TylerCreatine Kinase [id number] 16:48:00* Test Item Value Reference Range Interpretation Comments Creatine Kinase MB (test code = 76127-6) 1.10 0-5.0 [facility] TylerTroponin [id number] 16:48:00* Test Item Value Reference Range Interpretation Comments Troponin I (test code = RAC3113) 0.002 0-0.300 [facility] Stationodium Qapqr0493-08-54 16:45:00* Test Item Value Reference Range Interpretation Comments Sodium Level (test code = 2951-2) 141 136-145 [facility] TylerPotassium Lzhot3148-02-20 16:45:00* Test Item Value Reference Range Interpretation Comments Potassium Level (test code = 2823-3) 4.5 3.5-5.1 [facility] TylerChloride Seuyp4826-52-36 16:45:00* Test Item Value Reference Range Interpretation Comments Chloride Level (test code = 2075-0) 105 98-107 [facility] TylerCarbon Dioxide Maunc4113-52-92 16:45:00* Test Item Value Reference Range Interpretation Comments Carbon Dioxide Level (test code = 2028-9) 28 22-29 [facility] TylerAnion Box7112-79-86 16:45:00* Test Item Value Reference Range Interpretation Comments Anion Gap (test code = 65661-7) 12.5 8-16 [facility] TylerBlood Urea Hfragoxi2914-97-46 16:45:00* Test Item Value Reference Range Interpretation Comments Blood Urea Nitrogen (test code = 3094-0) 14 7-26 [facility] TylerCreatinine2020-03-02 16:45:00* Test Item Value Reference Range Interpretation Comments Creatinine (test code = 2160-0) 0.82 0.57-1.11 [facility] TylerBUN/Creatinine Mvkjf6134-83-24 16:45:00* Test Item Value Reference Range Interpretation Comments BUN/Creatinine Ratio (test code = 3097-3) 17 6- [facility] TylerEstimat Glomerular Filtration Rate 2019-11-19 16:45:00* Test Item Value Reference Range Interpretation Comments Estimat Glomerular Filtration Rate (test code = 294506350) > 60 >60 Ranges were taken from the National Kidney Disease Education Program and the [facility] Kidney Foundation literature.Reference ranges:60 or greater: Cpcwbd47-86 ( for 3 consecutive months): Chronic kidney disease 15 or less: Kidney failureCHRISTUS [facility] – TylerGlucose Zhasq6696-97-08 16:45:00* Test Item Value Reference Range Interpretation Comments Glucose Level (test code = OLC9139) 93 74-118 [facility] TylerCalcium Frnkh0278-19-90 16:45:00* Test Item Value Reference Range Interpretation Comments Calcium Level (test code = 00119-2) 10.4 8.4-10.2 H [facility] TylerTotal Daoqnjhqu0727-95-42 16:45:00* Test Item Value Reference Range Interpretation Comments Total Bilirubin (test code = 1975-2) 0.4 0.2-1.2 [facility] TylerAspartate Amino Transf (AST/SGOT) 2019-11-19 16:45:00* Test Item Value Reference Range Interpretation Comments Aspartate Amino Transf (AST/SGOT) (test code = Aspartate Amino Transf (AST/SGOT)) 17 5-34 [facility] TylerAlanine Aminotransferase (ALT/SGPT) 2019-11-19 16:45:00* Test Item Value Reference Range Interpretation Comments Alanine Aminotransferase (ALT/SGPT) (test code = 1742-6) 13 0-55 [facility] TylerTotal Tqjxxbj7539-35-39 16:45:00* Test Item Value Reference Range Interpretation Comments Total Protein (test code = 2885-2) 7.4 6.5-8.1 [facility] TylerAlbumin2020-03-02 16:45:00* Test Item Value Reference Range Interpretation Comments Albumin (test code = 1751-7) 4.1 3.5-5.0 [facility] TylerGlobulin2020-03-02 16:45:00* Test Item Value Reference Range Interpretation Comments Globulin (test code = 35859-7) 3.3 2.3-3.5 [facility] TylerAlbumin/Globulin Dtnwx1042-38-31 16:45:00 * Test Item Value Reference Range Interpretation Comments Albumin/Globulin Ratio (test code = 1759-0) 1.2 0.8-2.0 [facility] TylerAlkaline Yycouniihwd9977-59-84 16:45:00* Test Item Value Reference Range Interpretation Comments Alkaline Phosphatase (test code = 6768-6) 115 40-150 [facility] TylerCreatine Bbambk8616-53-69 16:45:00* Test Item Value Reference Range Interpretation Comments Creatine Kinase (test code = 2157-6) 38 29-168 [facility] TylerLactic Acid Dntja3648-21-71 16:38:00* Test Item Value Reference Range Interpretation Comments Lactic Acid Level (test code = Lactic Acid Level) 0.7 0.5- 2.0 [facility] TylerWhite Blood Ktolm9155-04-31 16:29:00* Test Item Value Reference Range Interpretation Comments White Blood Count (test code = 6690-2) 6.40 4.8-10.8 [facility] TylerRed Blood Felpg5650-92-56 16:29:00* Test Item Value Reference Range Interpretation Comments Red Blood Count (test code = 789-8) 4.22 3.6-5.1 [facility] TylerHemoglobin2020-03-02 16:29:00* Test Item Value Reference Range Interpretation Comments Hemoglobin (test code = 88651-0) 12.2 12.0-16.0 [facility] TylerHematocrit2020-03-02 16:29:00* Test Item Value Reference Range Interpretation Comments Hematocrit (test code = 4544-3) 38.3 34.2-44.1 [facility] TylerMean Corpuscular Upuwaa3494-35-06 16:29:00* Test Item Value Reference Range Interpretation Comments Mean Corpuscular Volume (test code = 787-2) 90.8 81-99 [facility] TylerMean Corpuscular Llizvioeuj8667-01-31 16:29:00* Test Item Value Reference Range Interpretation Comments Mean Corpuscular Hemoglobin (test code = 785-6) 28.9 28-32 [facility] TylerMean Corpuscular Hemoglobin Concent 2019-11-19 16:29:00* Test Item Value Reference Range Interpretation Comments Mean Corpuscular Hemoglobin Concent (test code = 786-4) 31.9 31-35 [facility] TylerRed Cell Distribution Aqdll2541-56-52 16:29:00* Test Item Value Reference Range Interpretation Comments Red Cell Distribution Width (test code = 84593-0) 12.8 11.7 -14.4 [facility] TylerPlatelet Cgdkh3937-63-68 16:29:00* Test Item Value Reference Range Interpretation Comments Platelet Count (test code = 777-3) 62 140-360 L NO CLOT DETECTED [facility] TylerNeutrophils (%) (Auto) 2019-11-19 16:29:00* Test Item Value Reference Range Interpretation Comments Neutrophils (%) (Auto) (test code = 64567-8) 69.1 38.7-80.0 [facility] TylerLymphocytes (%) (Auto)2019-11-19 16:29:00 * Test Item Value Reference Range Interpretation Comments Lymphocytes (%) (Auto) (test code = 736-9) 21.1 18.0-39.1 [facility] TylerMonocytes (%) (Auto)2019-11-19 16:29:00* Test Item Value Reference Range Interpretation Comments Monocytes (%) (Auto) (test code = 5905-5) 5.6 4.4-11.3 [facility] TylerEosinophils (%) (Auto)2019-11-19 16:29:00 * Test Item Value Reference Range Interpretation Comments Eosinophils (%) (Auto) (test code = 713-8) 3.6 0.0-6.0 [facility] TylerBasophils (%) (Auto)2019-11-19 16:29:00* Test Item Value Reference Range Interpretation Comments Basophils (%) (Auto) (test code = 706-2) 0.3 0.0-1.0 [facility] TylerIM GRANULOCYTES %2019-11-19 16:29:00* Test Item Value Reference Range Interpretation Comments IM GRANULOCYTES % (test code = IM GRANULOCYTES %) 0.3 0.0- 1.0 [facility] TylerNeutrophils # (Auto)2019-11-19 16:29:00* Test Item Value Reference Range Interpretation Comments Neutrophils # (Auto) (test code = 751-8) 4.4 2.1-6.9 [facility] TylerLymphocytes # (Auto)2019-11-19 16:29:00* Test Item Value Reference Range Interpretation Comments Lymphocytes # (Auto) (test code = 14220-9) 1.4 1.0-3.2 [facility] TylerMonocytes # (Auto)2019-11-19 16:29:00* Test Item Value Reference Range Interpretation Comments Monocytes # (Auto) (test code = 742-7) 0.4 0.2-0.8 [facility] TylerEosinophils # (Auto)2019-11-19 16:29:00* Test Item Value Reference Range Interpretation Comments Eosinophils # (Auto) (test code = 711-2) 0.2 0.0-0.4 [facility] TylerBasophils # (Auto)2019-11-19 16:29:00* Test Item Value Reference Range Interpretation Comments Basophils # (Auto) (test code = 704-7) 0.0 0.0-0.1 [facility] TylerAbsolute Immature Granulocyte (auto 2019-11-19 16:29:00* Test Item Value Reference Range Interpretation Comments Absolute Immature Granulocyte (auto (melina t code = Absolute Immature Granulocyte (auto) 0.02 0-0.1 [facility] TylerCHEST SINGLE (PORTABLE)2019-11-19 15:49:00 [facility] [address] [place] [address] Patient Name: MOJGAN CUMMINGS MR #: [id number] : 1950 Age/Sex: 69/F Req #: [id number] Adm Physician: Ordered by: CAITLYN ROMERO DO Report #: [id number] Location: ER Room/Bed: Procedure: [id number] DX/CH EST SINGLE (PORTABLE) Exam Date: Exam [...] PM Dictated By: LUIS A MONSALVE MD 372 Transcribed By: BAMBI on 11/19/19 833 COPY TO: CAITLYN ROMERO DO Arterial blood pH xlbvhjgatuy4497-31-07 15:45:00* Test Item Value Reference Range Interpretation Comments Arterial Blood pH (test code = 2744-1) 7.44 7.31-7.41 [facility] TylerpCO2 UbjR9010-89-87 15:45:00* Test Item Value Reference Range Interpretation Comments Arterial Blood Partial Pressure CO2 (test code = 2019-04) 40 41-51 [facility] TylerpCO2 DzaW8585-83-80 15:45:00* Test Item Value Reference Range Interpretation Comments Arterial Blood Partial Pressure O2 (test code = 2019-04) 128 80-105 [facility] TylerArterial blood bicarbonate measurement (moles/volume)2019-11-19 15:45:00* Test Item Value Reference Range Interpretation Comments Arterial Blood HCO3 (test code = 1960-4) 27 23-28 [facility] TylerArterial blood base excess by calculation 2019-11-19 15:45:00* Test Item Value Reference Range Interpretation Comments Arterial Blood Base Excess (test code = 1925-7) 3.0 -2-3 [facility] TylerArterial blood oxygen saturation ewwpygfulmh7600-41-52 15:45:00* Test Item Value Reference Range Interpretation Comments Arterial Blood Oxygen Saturation (test code = 2708-6) 99.0 95-98 [facility] TylerFluoroscopic procedure less than one hour duyeunqo5067-23-10 15:45:00* Test Item Value Reference Range Interpretation Comments FiO2 (test code = FiO2) 40 [facility] TylerArterial blood pH dbxtnrvwyvv3311-91-79 15:45:00* Test Item Value Reference Range Interpretation Comments Arterial Blood pH (test code = 2744-1) 7.44 7.31-7.41 [facility] TylerpCO2 UetO7313-22-30 15:45:00* Test Item Value Reference Range Interpretation Comments Arterial Blood Partial Pressure CO2 (test code = 2019-04) 40 41-51 [facility] TylerpCO2 RikT7886-36-40 15:45:00* Test Item Value Reference Range Interpretation Comments Arterial Blood Partial Pressure O2 (test code = 2019-04) 128 80-105 [facility] TylerArterial blood bicarbonate measurement (moles/volume)2019-11-19 15:45:00* Test Item Value Reference Range Interpretation Comments Arterial Blood HCO3 (test code = 1960-4) 27 23-28 [facility] TylerArterial blood base excess by calculation 2019-11-19 15:45:00* Test Item Value Reference Range Interpretation Comments Arterial Blood Base Excess (test code = 1925-7) 3.0 -2-3 [facility] TylerArterial blood oxygen saturation xaqdggisomf0536-71-53 15:45:00* Test Item Value Reference Range Interpretation Comments Arterial Blood Oxygen Saturation (test code = 2708-6) 99.0 95-98 [facility] TylerFluoroscopic procedure less than one hour erkzpekl8931-68-18 15:45:00* Test Item Value Reference Range Interpretation Comments FiO2 (test code = FiO2) 40 [facility] TylerFluoroscopic procedure less than one hour xxeawbqi5876-93-93 15:04:00* Test Item Value Reference Range Interpretation Comments Lactic Acid Level (test code = Lactic Acid Level) 0.7 0.5- 2.0 [facility] TylerBlood pbykdrc1148-38-05 15:04:00* Test Item Value Reference Range Interpretation Comments Blood Culture (test code = 64467724) NO GROWTH AFTER 5 DAYS, FINAL REPORT [facility] TylerBacterial blood kgtmrnb4395-56-32 15:04:00* Test Item Value Reference Range Interpretation Comments Blood Culture (test code = 600-7) GRAM POSITIVE BACILLUS 1 [facility] TylerFluoroscopic procedure less than one hour pnjuyhnj4659-49-66 15:04:00* Test Item Value Reference Range Interpretation Comments Lactic Acid Level (test code = Lactic Acid Level) 0.7 0.5- 2.0 [facility] TylerBlood nhxsvgk2015-37-66 15:04:00* Test Item Value Reference Range Interpretation Comments Blood Culture (test code = 68039845) NO GROWTH AFTER 5 DAYS, FINAL REPORT [facility] TylerBacterial blood yzfarbz0143-92-29 15:04:00* Test Item Value Reference Range Interpretation Comments Blood Culture (test code = 600-7) GRAM POSITIVE BACILLUS 1 [facility] TylerB-TYPE NATRIURETIC MRADIPP4698-85-38 08:12:00* Test Item Value Reference Range Interpretation Comments B-TYPE NATRIURETIC PEPTIDE (test code = BNP) 59.8 pgram/mL 0-100 N BASIC METABOLIC CFUMX9932-02-27 07:26:00* Test Item Value Reference Range Interpretation [...] code = CA) 10.2 mg/dL 8.5-10.1 H XVKRWRZE-R4761-13-24 07:26:00* Test Item Value Reference Range Interpretation Comments TROPONIN-I (test code = TROPI) <0.015 ng/mL 0-0.045 N CBC W/O AXIA8435-00-86 07:18:00* Test Item Value Reference Range Interpretation [...] 28 K/mm3 150-450 LL Results called to [id number] by AUDREY 10/12/19 0718Critical results verified and read back by Nurse? Y MEAN PLATELET VOLUME (test code = MPV) TEST NOT PERFORMED fL 6.7-11 .0 BASIC METABOLIC MHIVP0891-34-72 07:16:00* Test Item Value Reference Range Interpretation [...] CALCIUM (test code = CA) mg/dL 8.5-10.1 SESMMBTI-L1797-83-24 07:16:00* Test Item Value Reference Range Interpretation Comments TROPONIN-I (test code = TROPI) ng/mL 0-0.045 - XR CHEST 1 Y7136-21-09 07:05:00 FAX: Esau Weaver DO [place]: [address] St: REG Name: MOJGAN SAUCEDO [facility] : [birth year] Age/S: 69/F [address] [facility] Unit #: [id number] Loc: [place] M [place] [address] Phys: Esau Weaver DO Acct: [id number] Dis Date: Status: REG ER PHONE #: [phone] Exam Date: 10/12/2019526 FAX #: [phone] Reason: Shortness of Breath EXAMS: CPT CODE: [id number] XR CHEST 1 V 65198 HISTORY: Shortness of breath. COMPARISON: August 16, 2019. Location: . No acute infiltrates, effusion or congestion is [...] (070 8) PAGE 1 Signed Report Platelet Hikmndao0937-57-64 19:33:00* Test Item Value Reference Range Interpretation Comments Platelet Estimate (test code = 72579-6) ADEQUATE [facility] TylerPlatelet Morphology Ghodvrx2747-60-40 19:33:00* Test Item Value Reference Range Interpretation Comments Platelet Morphology Comment (test code = 19996-5) FEW GIANT [facility] TylerHypochromasia2020-01-07 19:33:00* Test Item Value Reference Range Interpretation Comments Hypochromasia (test code = 728-6) SLIGHT [facility] TylerRed Cell Morphology Soxcnyq6792-17-16 19:33:00* Test Item Value Reference Range Interpretation Comments Red Cell Morphology Comment (test code = 6742-1) NORMAL [facility] TylerB-Type Natriuretic Rceonkb4151-17-51 13:04:00* Test Item Value Reference Range Interpretation Comments B-Type Natriuretic Peptide (test code = 03829-7) 54.1 0-100 [facility] TylerB-Type Natriuretic Yknufnj6226-35-70 13:04:00* Test Item Value Reference Range Interpretation Comments B-Type Natriuretic Peptide (test code = 38918-9) 54.1 0-100 [facility]2019-09-25 12:52:00 [facility] [address] [address] Patient Name: MOJGAN CUMMINGS MR #: [id number] : 1950 Age/Sex: 69/F Req #: [id number] Adm Physician: Ordered by: DONOVAN MENJIVAR MD Report #: [id number] Location: ER Room/Bed: Procedure: [id number] DX/CH EST SINGLE (PORTABLE) Exam Date: 09/25/19 [...] 09/25/19 1254 COPY TO: DONOVAN MENJIVAR MD Sodium Level 2019-09-25 12:28:00* Test Item Value Reference Range Interpretation Comments Sodium Level (test code = 2951-2) 138 136-145 [facility] TylerPotassium Fdifp8580-49-83 12:28:00* Test Item Value Reference Range Interpretation Comments Potassium Level (test code = 2823-3) 3.9 3.5-5.1 [facility] TylerChloride Zsqts8240-42-79 12:28:00* Test Item Value Reference Range Interpretation Comments Chloride Level (test code = 2075-0) 104 98-107 [facility] TylerCarbon Dioxide Wxvcl6490-04-92 12:28:00* Test Item Value Reference Range Interpretation Comments Carbon Dioxide Level (test code = 2028-9) 26 22-29 [facility] TylerAnion Kaj8309-22-36 12:28:00* Test Item Value Reference Range Interpretation Comments Anion Gap (test code = 23463-1) 11.9 8-16 [facility] TylerBlood Urea Fncgxiyj3233-83-45 12:28:00* Test Item Value Reference Range Interpretation Comments Blood Urea Nitrogen (test code = 3094-0) 14 7-26 [facility] TylerCreatinine2020-01-07 12:28:00* Test Item Value Reference Range Interpretation Comments Creatinine (test code = 2160-0) 0.71 0.57-1.11 [facility] TylerBUN/Creatinine Mqhwf8790-83-63 12:28:00* Test Item Value Reference Range Interpretation Comments BUN/Creatinine Ratio (test code = 3097-3) 20 6-25 [facility] TylerEstimat Glomerular Filtration Rate 2019-09-25 12:28:00* Test Item Value Reference Range Interpretation Comments Estimat Glomerular Filtration Rate (test code = 656688814) > 60 >60 Ranges were taken from the National Kidney Disease Education Program and the [facility] Kid[employer] Foundation literature.Reference ranges:60 or greater: Nrkbma22-97 ( for 3 consecutive months): Chronic kidney disease 15 or less: Kidney failureCHRISTUS Mother Frances Hospital – TylerGlucose Mzete7446-69-78 12:28:00* Test Item Value Reference Range Interpretation Comments Glucose Level (test code = LCH3597) 87 74-118 [facility] TylerCalcium Vukgn1332-53-42 12:28:00* Test Item Value Reference Range Interpretation Comments Calcium Level (test code = 96039-5) 9.8 8.4-10.2 [facility] TylerTotal Mhtmzotui4754-15-07 12:28:00* Test Item Value Reference Range Interpretation Comments Total Bilirubin (test code = 1975-2) 0.4 0.2-1.2 [facility] TylerAspartate Amino Transf (AST/SGOT) 2019-09-25 12:28:00* Test Item Value Reference Range Interpretation Comments Aspartate Amino Transf (AST/SGOT) (test code = Aspartate Amino Transf (AST/SGOT)) 14 5-34 [facility] TylerAlanine Aminotransferase (ALT/SGPT) 2019-09-25 12:28:00* Test Item Value Reference Range Interpretation Comments Alanine Aminotransferase (ALT/SGPT) (test code = 1742-6) 13 0-55 [facility] Duncoxz3573-63-93 12:28:00* Test Item Value Reference Range Interpretation Comments Total Protein (test code = 2885-2) 6.2 6.5-8.1 L [facility] TylerAlbumin2020-01-07 12:28:00* Test Item Value Reference Range Interpretation Comments Albumin (test code = 1751-7) 3.5 3.5-5.0 [facility] TylerGlobulin2020-01-07 12:28:00* Test Item Value Reference Range Interpretation Comments Globulin (test code = 34334-2) 2.7 2.3-3.5 [facility] TylerAlbumin/Globulin Ehrml0937-01-67 12:28:00 * Test Item Value Reference Range Interpretation Comments Albumin/Globulin Ratio (test code = 1759-0) 1.3 0.8-2.0 [facility] TylerAlkaline Ebukvmmausw8607-67-26 12:28:00* Test Item Value Reference Range Interpretation Comments Alkaline Phosphatase (test code = 6768-6) 107 40-150 [facility] TylerWhite Blood Gelei7813-26-02 12:27:00* Test Item Value Reference Range Interpretation Comments White Blood Count (test code = 6690-2) 5.74 4.8-10.8 [facility] TylerRed Blood Xwlnq0511-83-56 12:27:00* Test Item Value Reference Range Interpretation Comments Red Blood Count (test code = 789-8) 3.49 3.6-5.1 L [facility] TylerHemoglobin2020-01-07 12:27:00* Test Item Value Reference Range Interpretation Comments Hemoglobin (test code = 44977-7) 10.2 12.0-16.0 L [facility] TylerHematocrit2020-01-07 12:27:00* Test Item Value Reference Range Interpretation Comments Hematocrit (test code = 4544-3) 32.4 34.2-44.1 L [facility] TylerMean Corpuscular Ldjsjn2238-07-19 12:27:00* Test Item Value Reference Range Interpretation Comments Mean Corpuscular Volume (test code = 787-2) 92.8 81-99 [facility] TylerMean Corpuscular Zsnvmvezgx0802-30-92 12:27:00* Test Item Value Reference Range Interpretation Comments Mean Corpuscular Hemoglobin (test code = 785-6) 29.2 28-32 [facility] TylerMean Corpuscular Hemoglobin Concent 2019-09-25 12:27:00* Test Item Value Reference Range Interpretation Comments Mean Corpuscular Hemoglobin Concent (test code = 786-4) 31.5 31-35 [facility] TylerRed Cell Distribution Smvkn2492-22-86 12:27:00* Test Item Value Reference Range Interpretation Comments Red Cell Distribution Width (test code = 48778-3) 13.0 11.7 -14.4 [facility] TylerPlatelet Igvdu4412-15-37 12:27:00* Test Item Value Reference Range Interpretation Comments Platelet Count (test code = 777-3) 47 140-360 LL Results repeated and called to CHLOE PHIPPS at 1226 on 09/25/19 by Sherrie malone Read back and verified.[facility] TylerNeutrophils (%) (Auto)2019-09-25 12:27:00* Test Item Value Reference Range Interpretation Comments Neutrophils (%) (Auto) (test code = 03042-5) 67.0 38.7-80.0 [facility] TylerLymphocytes (%) (Auto)2019-09-25 12:27:00 * Test Item Value Reference Range Interpretation Comments Lymphocytes (%) (Auto) (test code = 736-9) 23.3 18.0-39.1 [facility] TylerMonocytes (%) (Auto)2019-09-25 12:27:00* Test Item Value Reference Range Interpretation Comments Monocytes (%) (Auto) (test code = 5905-5) 5.9 4.4-11.3 [facility] TylerEosinophils (%) (Auto)2019-09-25 12:27:00 * Test Item Value Reference Range Interpretation Comments Eosinophils (%) (Auto) (test code = 713-8) 3.0 0.0-6.0 [facility] TylerBasophils (%) (Auto)2019-09-25 12:27:00* Test Item Value Reference Range Interpretation Comments Basophils (%) (Auto) (test code = 706-2) 0.3 0.0-1.0 [facility] TylerIM GRANULOCYTES %2019-09-25 12:27:00* Test Item Value Reference Range Interpretation Comments IM GRANULOCYTES % (test code = IM GRANULOCYTES %) 0.5 0.0- 1.0 [facility] TylerNeutrophils # (Auto)2019-09-25 12:27:00* Test Item Value Reference Range Interpretation Comments Neutrophils # (Auto) (test code = 751-8) 3.8 2.1-6.9 [facility] TylerLymphocytes # (Auto)2019-09-25 12:27:00* Test Item Value Reference Range Interpretation Comments Lymphocytes # (Auto) (test code = 30914-7) 1.3 1.0-3.2 [facility] TylerMonocytes # (Auto)2019-09-25 12:27:00* Test Item Value Reference Range Interpretation Comments Monocytes # (Auto) (test code = 742-7) 0.3 0.2-0.8 [facility] TylerEosinophils # (Auto)2019-09-25 12:27:00* Test Item Value Reference Range Interpretation Comments Eosinophils # (Auto) (test code = 711-2) 0.2 0.0-0.4 [facility] TylerBasophils # (Auto)2019-09-25 12:27:00* Test Item Value Reference Range Interpretation Comments Basophils # (Auto) (test code = 704-7) 0.0 0.0-0.1 [facility] TylerAbsolute Immature Granulocyte (auto 2019-09-25 12:27:00* Test Item Value Reference Range Interpretation Comments Absolute Immature Granulocyte (auto (melina t code = Absolute Immature Granulocyte (auto) 0.03 0-0.1 [facility] TylerBlood platelets count by estimate (number/volume)2019-09-25 10:17:00* Test Item Value Reference Range Interpretation Comments Platelet Estimate (test code = 64639-4) ADEQUATE [facility] TylerPlatelet ioqgvzgmkq8304-40-23 10:17:00* Test Item Value Reference Range Interpretation Comments Platelet Morphology Comment (test code = 14033-8) FEW GIANT [facility] TylerBlood hypochromia detection by light fzabvrvmxo8503-52-60 10:17:00* Test Item Value Reference Range Interpretation Comments Hypochromasia (test code = 728-6) SLIGHT [facility] TylerRBC eslbhisbga2192-10-12 10:17:00* Test Item Value Reference Range Interpretation Comments Red Cell Morphology Comment (test code = 6742-1) NORMAL [facility] TylerBlmelrose [facility] hypochromia detection by light sojibvoyou9465-79-74 10:17:00* Test Item Value Reference Range Interpretation Comments Hypochromasia (test code = 728-6) SLIGHT [facility] TylerFolate2020-01-05 01:59:00* Test Item Value Reference Range Interpretation Comments Folate (test code = 2284-8) 18.4 >3.0 A serum folate concentration of less than 3.1 ng/mL isconsidered to represent cl inical deficiency.Performed at: [address] [id number] Director: Rashawn Green MD, Phone: [phone] [facility] – TylerFolate2020-01-05 01:59:00* Test Item Value Reference Range Interpretation Comments Folate (test code = 2284-8) 18.4 >3.0 A serum folate concentration of less than 3.1 ng/mL isconsidered to represent cl inical deficiency.Performed at: [address] [id number] Director: Rashawn Green MD, Phone: [phone] Mother Frances Hospital – TylerVitamin B12 Whdky8025-60-44 12:13:00* Test Item Value Reference Range Interpretation Comments Vitamin B12 Level (test code = 41427-8) 329 213-816 [facility] TylerVitamin B12 Amqcj7437-65-67 12:13:00* Test Item Value Reference Range Interpretation Comments Vitamin B12 Level (test code = 21460-0) 329 213-816 [facility] TylerVitamin B12 Yfyif9820-93-60 12:13:00* Test Item Value Reference Range Interpretation Comments Vitamin B12 Level (test code = 67037-0) 329 213-816 [facility] Ihxivxy9044-76-25 11:30:00* Test Item Value Reference Range Interpretation Comments Bedside Glucose (test code = 31449-2) 134 70-120 H Meter ID: [id number] [facility] Glucose 2019-09-21 11:30:00* Test Item Value Reference Range Interpretation Comments Bedside Glucose (test code = 50098-6) 134 70-120 H Meter ID: [id number] [facility] Glucose 2019-09-21 11:30:00* Test Item Value Reference Range Interpretation Comments Bedside Glucose (test code = 34628-1) 134 70-120 [address] Meter ID: [id number] [facility]2020-[facility]-03 11:16:00* Test Item Value Reference Range Interpretation Comments Ferritin (test code = 2276-4) 776.53 4.63-204.[address] [facility]2020-01-03 11:16:00* Test Item Value Reference Range Interpretation Comments Ferritin (test code = 2276-4) 776.53 4.63-204.00 H [facility] TylerFerritin2020-01-03 11:16:00* Test Item Value Reference Range Interpretation Comments Ferritin (test code = 2276-4) 776.53 4.63-204.00 H [facility] TylerMODIFIED BA. RKQIGQL9752-97-01 10:40:[address] [place] [address] Patient Name: MOJGAN CUMMINGS MR #: [id number] : 8 Age/Sex: 69/F Req #: [id number] Adm Physician: ILAN STEIN MD Ordered by: TRINIDAD WALKER DOCTOR CHIROPRACTIC Report #: [id number] Location: [place] [address] Room/Bed: [facility] Procedure: [id number] DX/ MODIFIED BA. SWALLOW Exam Date: 09/21/19 [...] By: BAMBI on 09/21/19 1041 COPY TO: TRINIDAD WALKER NP Serum or plasma folate measurement (mass/volume)2019-09-21 09:24:00* Test Item Value Reference Range Interpretation Comments Folate (test code = 2284-8) 18.4 >3.0 A serum folate concentration of less than 3.1 ng/mL isconsidered to represent cl inical deficiency.Performed at: [employer] [address] [id number] Director: Rashawn Green MD, Phone: [phone] Scott & White Medical Center – College Stationerum or plasma folate measurement (mass/volume) 2019-09-21 09:24:00* Test Item Value Reference Range Interpretation Comments Folate (test code = 2284-8) 18.4 >3.0 A serum folate concentration of less than 3.1 ng/mL isconsidered to represent cl inical deficiency.Performed at: [employer] [address] [id number] Director: Rashawn Green MD, Phone: [phone] Scott [facility] College Stationodium Qusuw9328-88-68 06:52:00* Test Item Value Reference Range Interpretation Comments Sodium Level (test code = 2951-2) 138 136-145 [facility] TylerPotassium Zfgne2556-47-69 06:52:00* Test Item Value Reference Range Interpretation Comments Potassium Level (test code = 2823-3) 3.9 3.5-5.1 [facility] TylerChloride Uexem8275-17-41 06:52:00* Test Item Value Reference Range Interpretation Comments Chloride Level (test code = 2075-0) 104 98-107 [facility] TylerCarbon Dioxide Kmwbs0852-82-65 06:52:00* Test Item Value Reference Range Interpretation Comments Carbon Dioxide Level (test code = 2028-9) 25 22-29 [facility] TylerAnion Rwb4293-28-97 06:52:00* Test Item Value Reference Range Interpretation Comments Anion Gap (test code = 72818-6) 12.9 8-16 [facility] TylerBlood Urea Dquznudj4695-72-03 06:52:00* Test Item Value Reference Range Interpretation Comments Blood Urea Nitrogen (test code = 3094-0) 16 7-26 [facility] TylerCreatinine2020-01-03 06:52:00* Test Item Value Reference Range Interpretation Comments Creatinine (test code = 2160-0) 0.82 0.57-1.11 [facility] TylerBUN/Creatinine Wxmbf9273-68-03 06:52:00* Test Item Value Reference Range Interpretation Comments BUN/Creatinine Ratio (test code = 3097-3) 20 6-25 [facility] TylerEstimat Glomerular Filtration Rate 2019-09-21 06:52:00* Test Item Value Reference Range Interpretation Comments Estimat Glomerular Filtration Rate (test code = 925655508) > 60 >60 Ranges were taken from the National Kidney Disease Education Program and the [facility] literature.Reference ranges:60 or greater: Uqbjrb55-71 ( for 3 consecutive months): Chronic kidney disease 15 or less: Kidney failureCHRISTUS [facility] – TylerGlucose Mqwcd9601-69-44 06:52:00* Test Item Value Reference Range Interpretation Comments Glucose Level (test code = SKO2995) 89 74-118 [facility] TylerCalcium Qeols3060-38-05 06:52:00* Test Item Value Reference Range Interpretation Comments Calcium Level (test code = 39424-4) 9.6 8.4-10.2 [facility] TylerTotal Dbihoneix5718-03-72 06:52:00* Test Item Value Reference Range Interpretation Comments Total Bilirubin (test code = 1975-2) 0.3 0.2-1.2 [facility] TylerAspartate Amino Transf (AST/SGOT) 2019-09-21 06:52:00* Test Item Value Reference Range Interpretation Comments Aspartate Amino Transf (AST/SGOT) (test code = Aspartate Amino Transf (AST/SGOT)) 13 5-34 [facility] TylerAlanine Aminotransferase (ALT/SGPT) 2019-09-21 06:52:00* Test Item Value Reference Range Interpretation Comments Alanine Aminotransferase (ALT/SGPT) (test code = 1742-6) 9 0-55 [facility] TylerTotal Aztzuxm6901-40-64 06:52:00* Test Item Value Reference Range Interpretation Comments Total Protein (test code = 2885-2) 6.7 6.5-8.1 [facility] TylerAlbumin2020-01-03 06:52:00* Test Item Value Reference Range Interpretation Comments Albumin (test code = 1751-7) 3.5 3.5-5.0 [facility] TylerGlobulin2020-01-03 06:52:00* Test Item Value Reference Range Interpretation Comments Globulin (test code = 89664-4) 3.2 2.3-3.5 [facility] TylerAlbumin/Globulin Vjqql2420-46-26 06:52:00 * Test Item Value Reference Range Interpretation Comments Albumin/Globulin Ratio (test code = 1759-0) 1.1 0.8-2.0 [facility] TylerAlkaline Clcmehzrteb5751-54-14 06:52:00* Test Item Value Reference Range Interpretation Comments Alkaline Phosphatase (test code = 6768-6) 119 40-150 [facility] TylerMagnesium Qfrbv9594-79-79 06:38:00* Test Item Value Reference Range Interpretation Comments Magnesium Level (test code = 01212-2) 1.8 1.3-2.1 [facility] TylerMagnesium Zxyap3704-88-26 06:38:00* Test Item Value Reference Range Interpretation Comments Magnesium Level (test code = 00382-4) 1.8 1.3-2.1 [facility] TylerMagnesium Nvmjv4092-49-34 06:38:00* Test Item Value Reference Range Interpretation Comments Magnesium Level (test code = 14166-9) 1.8 1.3-2.1 [facility] TylerWhite Blood Lvuac6765-81-17 06:35:00* Test Item Value Reference Range Interpretation Comments White Blood Count (test code = 6690-2) 5.32 4.8-10.8 [facility] TylerRed Blood Faydn7240-28-23 06:35:00* Test Item Value Reference Range Interpretation Comments Red Blood Count (test code = 789-8) 3.77 3.6-5.1 [facility] TylerHemoglobin2020-01-03 06:35:00* Test Item Value Reference Range Interpretation Comments Hemoglobin (test code = 85982-2) 10.9 12.0-16.0 L [facility] TylerHematocrit2020-01-03 06:35:00* Test Item Value Reference Range Interpretation Comments Hematocrit (test code = 4544-3) 34.2 34.2-44.1 [facility] TylerMean Corpuscular Bbwqsx5582-76-79 06:35:00* Test Item Value Reference Range Interpretation Comments Mean Corpuscular Volume (test code = 787-2) 90.7 81-99 [facility] TylerMean Corpuscular Apsmzkyjzx8037-24-70 06:35:00* Test Item Value Reference Range Interpretation Comments Mean Corpuscular Hemoglobin (test code = 785-6) 28.9 28-32 [facility] TylerMean Corpuscular Hemoglobin Concent 2019-09-21 06:35:00* Test Item Value Reference Range Interpretation Comments Mean Corpuscular Hemoglobin Concent (test code = 786-4) 31.9 31-35 [facility] TylerRed Cell Distribution Djmlr5561-57-06 06:35:00* Test Item Value Reference Range Interpretation Comments Red Cell Distribution Width (test code = 66154-8) 13.3 11.7 -14.4 [facility] TylerPlatelet Hdicj2095-42-10 06:35:00* Test Item Value Reference Range Interpretation Comments Platelet Count (test code = 777-3) 41 140-360 LL Results repeated and called to CHERELLE LEDESMA at 0634 on 09/21/19 by Miko Caal. Read back and verified.[facility] TylerNeutrophils (%) (Auto) 2019-09-21 06:35:00* Test Item Value Reference Range Interpretation Comments Neutrophils (%) (Auto) (test code = 96300-5) 77.2 38.7-80.0 [facility] TylerLymphocytes (%) (Auto)2019-09-21 06:35:00 * Test Item Value Reference Range Interpretation Comments Lymphocytes (%) (Auto) (test code = 736-9) 11.3 18.0-39.1 L [facility] TylerMonocytes (%) (Auto)2019-09-21 06:35:00* Test Item Value Reference Range Interpretation Comments Monocytes (%) (Auto) (test code = 5905-5) 7.5 4.4-11.3 [facility] TylerEosinophils (%) (Auto)2019-09-21 06:35:00 * Test Item Value Reference Range Interpretation Comments Eosinophils (%) (Auto) (test code = 713-8) 3.4 0.0-6.0 [facility] TylerBasophils (%) (Auto)2019-09-21 06:35:00* Test Item Value Reference Range Interpretation Comments Basophils (%) (Auto) (test code = 706-2) 0.4 0.0-1.0 [facility] TylerIM GRANULOCYTES %2019-09-21 06:35:00* Test Item Value Reference Range Interpretation Comments IM GRANULOCYTES % (test code = IM GRANULOCYTES %) 0.2 0.0- 1.0 [facility] TylerNeutrophils # (Auto)2019-09-21 06:35:00* Test Item Value Reference Range Interpretation Comments Neutrophils # (Auto) (test code = 751-8) 4.1 2.1-6.9 [facility] TylerLymphocytes # (Auto)2019-09-21 06:35:00* Test Item Value Reference Range Interpretation Comments Lymphocytes # (Auto) (test code = 72972-2) 0.6 1.0-3.2 L [facility] TylerMonocytes # (Auto)2019-09-21 06:35:00* Test Item Value Reference Range Interpretation Comments Monocytes # (Auto) (test code = 742-7) 0.4 0.2-0.8 [facility] TylerEosinophils # (Auto)2019-09-21 06:35:00* Test Item Value Reference Range Interpretation Comments Eosinophils # (Auto) (test code = 711-2) 0.2 0.0-0.4 [facility] TylerBasophils # (Auto)2019-09-21 06:35:00* Test Item Value Reference Range Interpretation Comments Basophils # (Auto) (test code = 704-7) 0.0 0.0-0.1 [facility] TylerAbsolute Immature Granulocyte (auto 2019-09-21 06:35:00* Test Item Value Reference Range Interpretation Comments Absolute Immature Granulocyte (auto (melina t code = Absolute Immature Granulocyte (auto) 0.01 0-0.1 [facility] Stationerum or plasma magnesium measurement (mass/volume)2019-09-21 04:53:00* Test Item Value Reference Range Interpretation Comments Magnesium Level (test code = 52156-1) 1.8 1.3-2.1 [facility] Stationerum or plasma ferritin measurement (mass/volume)2019-09-21 04:53:00* Test Item Value Reference Range Interpretation Comments Ferritin (test code = 2276-4) 776.53 4.63-204.00 [facility] TylerBlood cobalamin (vitamin B12) measurement (mass/volume)2019-09-21 04:53:00* Test Item Value Reference Range Interpretation Comments Vitamin B12 Level (test code = 61108-2) 329 213816 [facility] Stationerum or plasma magnesium measurement (mass/volume)2019-09-21 04:53:00* Test Item Value Reference Range Interpretation Comments Magnesium Level (test code = 84551-0) 1.8 1.3-2.1 [facility] Stationerum or plasma ferritin measurement (mass/volume)2019-09-21 04:53:00* Test Item Value Reference Range Interpretation Comments Ferritin (test code = 2276-4) 776.53 4.63-204.00 [facility] TylerBlood cobalamin (vitamin B12) measurement (mass/volume)2019-09-21 04:53:00* Test Item Value Reference Range Interpretation Comments Vitamin B12 Level (test code = 50647-4) 329 213816 [facility] TylerCapillary blood glucose measurement by glucometer (mass/volume)2019-09-20 20:16:00* Test Item Value Reference Range Interpretation Comments Bedside Glucose (test code = 59596-5) 134 70-120 Meter ID: [id number] [facility] by glucometer (mass/volume)2019-09-20 20:16:00* Test Item Value Reference Range Interpretation Comments Bedside Glucose (test code = 67926-6) 134 70-120 Meter ID: [id number] Mother Frances Hospital – TylerPlatelet Estimate 2019-09-20 11:23:00* Test Item Value Reference Range Interpretation Comments Platelet Estimate (test code = 61499-9) MARKEDLY DECREASED [facility] Veufyllvq1813-98-64 11:23:00* Test Item Value Reference Range Interpretation Comments Large Platelets (test code = 5908-9) RARE [facility] TylerPlatelet Mfwyxofx0307-07-19 11:23:00* Test Item Value Reference Range Interpretation Comments Platelet Estimate (test code = 06812-8) MARKEDLY DECREASED [facility] Sqdudjonv8351-99-28 11:23:00* Test Item Value Reference Range Interpretation Comments Large Platelets (test code = 5908-9) RARE [facility] Myukrvcna4528-44-00 11:23:00* Test Item Value Reference Range Interpretation Comments Large Platelets (test code = 5908-9) RARE [facility] TylerPhosphorus Qsjnk7691-34-08 05:57:00* Test Item Value Reference Range Interpretation Comments Phosphorus Level (test code = ATR3288) 3.2 2.3-4.7 [facility] TylerPhosphorus Vjjug0795-11-56 05:57:00* Test Item Value Reference Range Interpretation Comments Phosphorus Level (test code = RHB5129) 3.2 2.3-4.7 [facility] TylerPhosphorus Aioki9657-96-21 05:57:00* Test Item Value Reference Range Interpretation Comments Phosphorus Level (test code = ODE5866) 3.2 2.3-4.7 [facility] TylerGiant platelet vctyvsbry0648-40-10 04:15:00* Test Item Value Reference Range Interpretation Comments Large Platelets (test code = 5908-9) RARE [facility] TylerPhosphorus fxydxbzhrxj5516-43-83 04:15:00 * Test Item Value Reference Range Interpretation Comments Phosphorus Level (test code = YYJ8117) 3.2 2.3-4.7 [facility] platelet khbjfkbpr4394-45-88 04:15:00* Test Item Value Reference Range Interpretation Comments Large Platelets (test code = 5908-9) RARE [facility] TylerPhosphorus rmsfrsxtyxd0357-55-08 04:15:00 * Test Item Value Reference Range Interpretation Comments Phosphorus Level (test code = XCN9772) 3.2 2.3-4.7 [facility] TylerCT CHEST L5253-54-80 10:15:00 [facility] [address] [place] [address] Patient Name: MOJGAN CUMMINGS MR #: [id number] : 1950 Age/Sex: 69/F Req #: [id number] Adm Physician: ILAN STEIN MD Ordered by: MARK ANTHONY KERNS MD Report #: [id number] Location: MED/SURG3 Room/Bed: [facility] Procedure: [id number] CT/CT CHEST W Exam Date: 09/19/19 Exam [...] MARK ANTHONY KERNS MD Nucleated Red Blood Fabqh4639-20-28 08:44:00* Test Item Value Reference Range Interpretation Comments Nucleated Red Blood Cells (test code = 27662-7) NO EDTA PLT CLUMPS SEEN [facility] TylerPlatelet Morphology Yyboumn6058-72-41 08:44:00* Test Item Value Reference Range Interpretation Comments Platelet Morphology Comment (test code = 96885-2) FEW GIANT [facility] TylerNucleated Red Blood Lxyle6998-82-95 08:44:00* Test Item Value Reference Range Interpretation Comments Nucleated Red Blood Cells (test code = 15651-3) NO EDTA PLT CLUMPS SEEN [facility] TylerPlatelet Morphology Cczbwai4514-10-70 08:44:00* Test Item Value Reference Range Interpretation Comments Platelet Morphology Comment (test code = 05437-3) FEW GIANT [facility] TylerNucleated Red Blood Lmfct2753-55-50 08:44:00* Test Item Value Reference Range Interpretation Comments Nucleated Red Blood Cells (test code = 73895-9) NO EDTA PLT CLUMPS SEEN [facility] TylerCHES SINGLE (PORTABLE)2019-09-19 07:45:00 [facility] [address] [address] Patient Name: MOJGAN CUMMINGS MR #: [id number] : 1950 Age/Sex: 69/F Req #: [id number] Adm Physician: ILAN STEIN MD Ordered by: CAITLYN ROMERO DO Report #: [id number] Location: MED/SURG3 Room/Bed: [facility] Procedure: [id number] DX/C HEST SINGLE (PORTABLE) Exam Date: 09/19/19 [...] 46 COPY TO: CAITLYN ROMERO DO Prothrombin Cjvj4676-42-18 07:43:00 * Test Item Value Reference Range Interpretation Comments Prothrombin Time (test code = 5902-2) 13.0 11.9-14.5 [facility] TylerProthromb Time International Ratio 2019-09-19 07:43:00* Test Item Value Reference Range Interpretation Comments Prothromb Time International Ratio (test code = 6301-6) 0.93 Oral Anticoagulant Therapy INR Values:1. Low Intensity Therapy 1.5 - 2.02 . Moderate Intensity Therapy 2.0 - 3.03. High Intensity Therapy(1) 2.5 - 3. 54. High Intensity Therapy(2) 3.0 - 4.05. Panic Value INR > 5.0 [facility] TylerActivated Partial Thromboplast Time 2019-09-19 07:43:00* Test Item Value Reference Range Interpretation Comments Activated Partial Thromboplast Time (test code = 27411-0) 26.9 23.8-35.5 [facility] TylerProthrombin Cjvp9600-65-56 07:43:00* Test Item Value Reference Range Interpretation Comments Prothrombin Time (test code = 5902-2) 13.0 11.9-14.5 [facility] TylerProthromb Time International Ratio 2019-09-19 07:43:00* Test Item Value Reference Range Interpretation Comments Prothromb Time International Ratio (test code = 6301-6) 0.93 Oral Anticoagulant Therapy INR Values:1. Low Intensity Therapy 1.5 - 2.02 . Moderate Intensity Therapy 2.0 - 3.03. High Intensity Therapy(1) 2.5 - 3. 54. High Intensity Therapy(2) 3.0 - 4.05. Panic Value INR > 5.0 [facility] TylerActivated Partial Thromboplast Time 2019-09-19 07:43:00* Test Item Value Reference Range Interpretation Comments Activated Partial Thromboplast Time (test code = 67054-1) 26.9 23.8-35.5 [facility] TylerProthrombin Mcgn0707-91-97 07:43:00* Test Item Value Reference Range Interpretation Comments Prothrombin Time (test code = 5902-2) 13.0 11.9-14.5 [facility] TylerProthromb Time International Ratio 2019-09-19 07:43:00* Test Item Value Reference Range Interpretation Comments Prothromb Time International Ratio (test code = 6301-6) 0.93 Oral Anticoagulant Therapy INR Values:1. Low Intensity Therapy 1.5 - 2.02 . Moderate Intensity Therapy 2.0 - 3.03. High Intensity Therapy(1) 2.5 - 3. 54. High Intensity Therapy(2) 3.0 - 4.05. Panic Value INR > 5.0 [facility] TylerActivated Partial Thromboplast Time 2019-09-19 07:43:00* Test Item Value Reference Range Interpretation Comments Activated Partial Thromboplast Time (test code = 19273-3) 26.9 23.8-35.5 [facility] TylerBlood nucleated erythrocytes count (number/volume)2019-09-19 06:08:00* Test Item Value Reference Range Interpretation Comments Nucleated Red Blood Cells (test code = 63773-9) See Comment NO EDTA PLT CLUMPS SEENCHRISTUS Mother [facility] – TylerProthrombin time (PT) in platelet poor plasma by coagulation zagos8150-26-23 06:08:00* Test Item Value Reference Range Interpretation Comments Prothrombin Time (test code = 5902-2) 13.0 11.9-14.5 [facility] TylerINR in Platelet poor plasma by Coagulation bnpki3825-65-51 06:08:00* Test Item Value Reference Range Interpretation Comments Prothromb Time International Ratio (test code = 6301-6) 0.93 Oral Anticoagulant Therapy INR Values:1. Low Intensity Therapy 1.5 - 2.02 . Moderate Intensity Therapy 2.0 - 3.03. High Intensity Therapy(1) 2.5 - 3. 54. High Intensity Therapy(2) 3.0 - 4.05. Panic Value INR > 5.0 [facility] TylerActivated partial thromboplastin time (aPTT) in platelet poor plasma by coagulation eirns1512-78-67 06:08:00* Test Item Value Reference Range Interpretation Comments Activated Partial Thromboplast Time (test code = 31836-7) 26.9 23.8-35.5 [facility] TylerBlood nucleated erythrocytes count (number/volume)2019-09-19 06:08:00* Test Item Value Reference Range Interpretation Comments Nucleated Red Blood Cells (test code = 27112-1) See Comment NO EDTA PLT CLUMPS SEENCHRISTUS Mother Frances [facility] – TylerProthrombin time (PT) in platelet poor plasma by coagulation zzftw5407-68-73 06:08:00* Test Item Value Reference Range Interpretation Comments Prothrombin Time (test code = 5902-2) 13.0 11.9-14.5 [facility] TylerINR in Platelet poor plasma by Coagulation xcxjz7463-61-58 06:08:00* Test Item Value Reference Range Interpretation Comments Prothromb Time International Ratio (test code = 6301-6) 0.93 Oral Anticoagulant Therapy INR Values:1. Low Intensity Therapy 1.5 - 2.02 . Moderate Intensity Therapy 2.0 - 3.03. High Intensity Therapy(1) 2.5 - 3. 54. High Intensity Therapy(2) 3.0 - 4.05. Panic Value INR > 5.0 [facility] TylerActivated partial thromboplastin time (aPTT) in platelet poor plasma by coagulation nesqr6610-59-76 06:08:00* Test Item Value Reference Range Interpretation Comments Activated Partial Thromboplast Time (test code = 76123-3) 26.9 23.8-35.5 [facility] TylerGLUBED2019-12-01 17:36:00* Test Item Value Reference Range Interpretation Comments GLUBED (test code = GLUBED) 101 mg/dL 74-106 N Performed by certified collar shaper operator at [facility] JAXUFH5448-77-66 12:29:00* Test Item Value Reference Range Interpretation Comments GLUBED (test code = GLUBED) 93 mg/dL 74-106 N Performed by certified collar shaper operator at [facility] FHBGHYWFGX5351-07-15 07:03:00* Test Item Value Reference Range Interpretation Comments VANCOMYCIN (test code = VANCO) 19.7 UG/ML 5.0-45.0 N BASIC METABOLIC AEIPW8738-45-07 07:02:00* Test Item Value Reference Range Interpretation [...] CA) 8.9 mg/dL 8.5-10.1 N CBC W/AUTO LYVI0294-90-08 07:00:00* Test Item Value Reference Range Interpretation [...] DIFF REQUIRED (test code = MDIFF) NO HDNCDH7757-21-30 06:21:00* Test Item Value Reference Range Interpretation Comments GLUBED (test code = GLUBED) 81 mg/dL 74-106 N Performed by certified collar shaper operator at [facility] HIIXSQ5388-92-35 20:36:00* Test Item Value Reference Range Interpretation Comments GLUBED (test code = GLUBED) 103 mg/dL 74-106 N Performed by certified collar shaper operator at [facility] TYOSDE9514-86-63 17:37:00* Test Item Value Reference Range Interpretation Comments GLUBED (test code = GLUBED) 101 mg/dL 74-106 N Performed by certified collar shaper operator at [facility] VDXTNJ9539-67-59 17:37:00* Test Item Value Reference Range Interpretation Comments GLUBED (test code = GLUBED) 111 mg/dL 74-106 H Performed by certified collar shaper operator at [facility] BASIC METABOLIC DOXNG2032-09-96 07:39:00* Test Item Value Reference Range Interpretation [...] code = CA) 8.7 mg/dL 8.5-10.1 N YUTARYOXU8804-16-16 07:39:00* Test Item Value Reference Range Interpretation Comments MAGNESIUM (test code = MAG) 1.9 mg/dL 1.8-2.4 N BASIC METABOLIC [id number] 07:06:00* Test Item Value Reference Range Interpretation [...] CALCIUM (test code = CA) mg/dL 8.5-10.1 FJSCDGLQG2232-45-93 07:06:00* Test Item Value Reference Range Interpretation Comments MAGNESIUM (test code = MAG) mg/dL 1.8-2.4 CBC W/AUTO [id number] 06:19:00* Test Item Value Reference Range Interpretation [...] = MDIFF) NO, ONLY SCAN NEEDED DIFFERENTIAL [id number] 06:19:00* Test Item Value Reference Range Interpretation Comments STAIN ACCEPTABILITY (test code = STN ACCEPTABLE) STAIN ACCEPTABLE PLATELET ESTIMATE (test code = PLTEST) DECREASED PLATELET MORPHOLOGY (test code = PLTMORPH) NORMAL THHDBQ6403-70-47 06:13:00* Test Item Value Reference Range Interpretation Comments GLUBED (test code = GLUBED) 87 mg/dL 74-106 N Performed by certified collar shaper operator at [facility] CBC W/AUTO [id number] 05:52:00* Test Item Value Reference Range Interpretation [...] = MDIFF) NO, ONLY SCAN NEEDED DIFFERENTIAL [id number] 05:52:00* Test Item Value Reference Range Interpretation Comments STAIN ACCEPTABILITY (test code = STN ACCEPTABLE) CABOT RINGS (test code = CAB) MORPHOLOGY COMMENT (test code = MOC) PLATELET ESTIMATE (test code = PLTEST) PLATELET MORPHOLOGY (test code = PLTMORPH) CBC W/AUTO [id number] 05:52:00* Test Item Value Reference Range Interpretation [...] = MDIFF) NO, ONLY SCAN NEEDED DIFFERENTIAL [id number] 05:52:00* Test Item Value Reference Range Interpretation Comments STAIN ACCEPTABILITY (test code = STN ACCEPTABLE) CABOT RINGS (test code = CAB) MORPHOLOGY COMMENT (test code = MOC) PLATELET ESTIMATE (test code = PLTEST) PLATELET MORPHOLOGY (test code = PLTMORPH) CBC W/AUTO [id number] 05:52:00* Test Item Value Reference Range Interpretation [...] = MDIFF) NO, ONLY SCAN NEEDED DIFFERENTIAL [id number] 05:52:00* Test Item Value Reference Range Interpretation Comments STAIN ACCEPTABILITY (test code = STN ACCEPTABLE) MORPHOLOGY COMMENT (test code = MOC) PLATELET ESTIMATE (test code = PLTEST) PLATELET MORPHOLOGY (test code = PLTMORPH) CBC W/AUTO [id number] 05:52:00* Test Item Value Reference Range Interpretation [...] = MDIFF) NO, ONLY SCAN NEEDED DIFFERENTIAL [id number] 05:52:00* Test Item Value Reference Range Interpretation Comments STAIN ACCEPTABILITY (test code = STN ACCEPTABLE) CABOT RINGS (test code = CAB) MORPHOLOGY COMMENT (test code = MOC) PLATELET ESTIMATE (test code = PLTEST) PLATELET MORPHOLOGY (test code = PLTMORPH) [id number] 01:58:00* Test Item Value Reference Range Interpretation Comments VANCOMYCIN (test code = VANCO) 30.0 UG/ML 5.0-45.0 N [id number] 22:13:00* Test Item Value Reference Range Interpretation Comments GLUBED (test code = GLUBED) 92 mg/dL 74-106 N Performed by certified collar shaper operator at [facility] [id number] 07:36:00* Test Item Value Reference Range Interpretation Comments GLUBED (test code = GLUBED) 101 mg/dL 74-106 N Performed by certified collar shaper operator at [facility] CBC W/O [id number] 06:44:00* Test Item Value Reference Range Interpretation [...] MPV) 14.7 fL 6.7-11.0 H BASIC METABOLIC [id number] 06:23:00* Test Item Value Reference Range Interpretation [...] code = CA) 8.9 mg/dL 8.5-10.1 N [id number] 06:23:00* Test Item Value Reference Range Interpretation Comments MAGNESIUM (test code = MAG) 1.6 mg/dL 1.8-2.4 L [id number] 15:13:00* Test Item Value Reference Range Interpretation Comments GLUBED (test code = GLUBED) 104 mg/dL 74-106 N Performed by certified collar shaper operator at [facility] - XR CHEST 1 [id number] 07:32:00 FAX: Yoly Payne MD [phone] [place]: B St: DIS FAX: Sil Farrar MD Name: MOJGAN CUMMINGS [facility] : 1950 Age/S: 69/F [address] [facility] Unit #: [id number] Loc: V.[address] [place] [address] Phys: Sil Farrar MD Acct: [id number] Dis Date: [id number] Status: DIS IN PHONE #: [phone] Exam Date: 08/16/2019 0650 FAX #: [phone] Reason: ventilator, copd EXAMS: CPT CODE: [id number] XR CHEST 1 V 36019 EXAM: Chest x-ray, one view; INFORMATION: Respiratory failure; IMPRESSION: Improvement compared with yesterday's study: Lungs are better aerated with partial resolution of basilar atelectasis; Normal-sized heart; at 0732 Reported and signed by: Rex Gates M.D. CC: Yoly Sapp MD; Sil Farrar MD Technologist: RADHA ALEXANDRA(Ivan) Trnscrd Date/Time/By: 08/16/2019 (0732) : By: HarryGRW Orig Print D/T: S: 08/16/2019 (0735) PAGE 1 Signed Report - XR CHEST 1 [id number] 07:32:00 FAX: Yoly Payne MD [phone] [place]: St: ADM FAX: Sil Farrar MD Name: MOJGAN CUMMINGS [facility] : 1950 Age/S: 69/F [address] [facility] Unit #: [id number] Loc: [address] [address] Phys: Sil Farrar MD Acct: [id number] Dis Date: Status: ADM IN PHONE #: [phone] Exam Date: 08/16/2019 0650 FAX #: [phone] Reason: ventilator, copd EXAMS: CPT CODE: [id number] XR CHEST 1 V 60283 EXAM: Chest x-ray, one view; INFORMATION: Respirat ory failure; IMPRESSION: Improvement compared with yeste rday's study: Lungs are better aerated with partial resolution of basila r atelectasis; Normal-sized heart; Electronically S igned by Crispin Gates on 08/16/2019 at 0732 Reported and signed by: Rigoberto Johnson CC: Yoly Sapp MD; Sil Farrar MD Technologist: RADHA ALEXANDRA(Ivan) Trnscrd Date/Time/By: 08/16/2019 (0732) : By: Omar Orig Print D/T : S: 08/16/2019 (0765) PAGE 1 Sig julian Report - XR CHEST 1 [id number] 07:32:00 FAX: Yoly Payne MD [phone] [place]: B St: DIS FAX: Sil Farrar MD Name: MOJGAN CUMMINGS [facility] : 1950 Age/S: 69/F [address] [facility] Unit #: [id number] Loc: V.[address] [place] [address] Phys: Sil Farrar MD Acct: [id number] Dis Date: [id number] Status: DIS IN PHONE #: [phone] Exam Date: 08/16/2019 0650 FAX #: [phone] Reason: ventilator, copd EXAMS: CPT CODE: [id number] XR CHEST 1 V 57666 EXAM: Chest x-ray, one view; INFORMATION: Respirat ory failure; IMPRESSION: Improvement compared with juvenal barr's study: Lungs are better aerated with partial resolution of basila r atelectasis; Normal-sized heart; Electronically S igned by Crispin Gates on 08/16/2019 at 0732 Reported and signed by: Rigoberto Johnson CC: Yoly Sapp MD; Sil Farrar MD Technologist: RADHA LOCKETT RT(R) Trnscrd Date/Time/By: 08/16/2019 (0732) : By: Omar Orig Print D/T : S: 08/16/2019 (0735) PAGE 1 Sig julian Report CBC W/O [id number] 07:26:00* Test Item Value Reference Range Interpretation [...] PLT) 48 K/mm3 150-450 LL Results called [id number] by V.LAB.[facility] 08/16/19 0722Critical results verified and read back by Nurse? Y MEAN PLATELET VOLUME (test code = MPV) 15.3 fL 6.7-11.0 H BASIC METABOLIC [id number] 07:15:00* Test Item Value Reference Range Interpretation [...] CA) 8.7 mg/dL 8.5-10.1 N BASIC METABOLIC [id number] 07:06:00* Test Item Value Reference Range Interpretation [...] CALCIUM (test code = CA) mg/dL 8.5-10.1 [id number] 07:06:00* Test Item Value Reference Range Interpretation Comments MAGNESIUM (test code = MAG) 1.7 mg/dL 1.8-2.4 L - XR CHEST 1 [id number] 06:48:00 FAX: Yoly Payne MD [phone] [place]: B St: DIS FAX: Sil Farrar MD Name: ZOILAMOJGAN JESSE [facility] : 1950 Age/S: 69/F [address] Unit #: [id number] Loc: V.[address] [place] [address] Phys: Sil Farrar MD Acct: [id number] Dis Date: [id number] Status: DIS IN PHONE #: [phone] Exam Date: 08/15/2019 05 FAX #: [phone] Reason: ventilator, copd EXAMS: CPT CODE: [id number] XR CHEST 1 V 51542 HISTORY: Respiratory failure, ventilator, copd TECHNIQUE: AP [...] Signed Rep ort - XR CHEST 1 [id number] 06:48:00 FAX: Yoly Payne MD [phone] [place]: St: ADM FAX: Sil Farrar MD Name: MOJGAN CUMMINGS [facility] : 1950 Age/S: 69/F [address] Unit #: [id number] Loc: [place] [address] Phys: Sil Farrar MD Acct: [id number] Dis Date: Status: ADM IN PHONE #: [phone] Exam Date: 08/15/2019525 FAX #: [phone] Reason: ventilator, copd EXAMS: CPT CODE: [id number] XR CHEST 1 V 10498 HISTORY: Respiratory failure, ventilator, copd AHSAN HNIQUE: AP chest x-ray COMPARISON: Previous day. I MPRESSION: Increasing bibasilar airspace opacification and ate lectasis. Small pleural effusion may be present. Normal heart size. Trac heostomy tube. LOCATION: LP Electronically Signed by Lenka Farrar D.O. o lamonte 08/15/2019 at 0648 Reported and signed by: Lenka Daniels CC: Yoly Sapp MD; Sil Farrar MD Technologist: OCTAVIO Darling Trnscrd Date/Time/By: 08/15/2019 (0648) : By: [email or web address] Orig Print D/T: S: (0651) PAGE 1 Signed Rep ort - XR CHEST 1 [id number] 06:48:00 FAX: Yoly Payne MD [phone] [place]: B St: DIS FAX: Sil Farrar MD Name: MOJGAN CUMMINGS [facility] : 1950 Age/S: 69/F [address] [facility] Unit #: [id number] Loc: V.[address] [place] [address] Phys: Sil Farrar MD Acct: [id number] Dis Date: [id number] Status: DIS IN PHONE #: [phone] Exam Date: 08/15/2019525 FAX #: [phone] Reason: ventilator, copd EXAMS: CPT CODE: [id number] XR CHEST 1 V 62522 HISTORY: Respiratory failure, ventilator, copd AHSAN HNIQUE: AP chest x-ray COMPARISON: Previous day. I MPRESSION: Increasing bibasilar airspace opacification and ate lectasis. Small pleural effusion may be present. Normal heart size. Trac heostomy tube. LOCATION: Electronically Signed by Lenka aburto 08/15/2019 at 0648 Reported and signed by: Lenka Daniels CC: Yoly Sapp MD; Sil Farrar MD Technologist: OCTAVIO Darling Trnscrd Date/Time/By: 08/15/2019 (0648) : By: [email or web address] Orig Print D/T: S: (0651) PAGE 1 Signed Rep ort [id number] 06:26:00* Test Item Value Reference Range Interpretation Comments PHOSPHORUS (test code = PHOS) 2.2 mg/dL 2.5-4.9 L BASIC METABOLIC [id number] 04:06:00* Test Item Value Reference Range Interpretation [...] code = CA) 8.5 mg/dL 8.5-10.1 N [id number] 03:58:00* Test Item Value Reference Range Interpretation Comments MAGNESIUM (test code = MAG) 1.6 mg/dL 1.8-2.4 L CBC W/O [id number] 03:34:00* Test Item Value Reference Range Interpretation [...] 46 K/mm3 150-450 LL Results called to [id number] by V.[email or web address].AG1 08/15/19 0333Critical results verified and read back by Nurse? Y MEAN PLATELET VOLUME (test code = MPV) TEST NOT PERFORMED fL 6.7-11 .0 [id number] 07:05:00* Test Item Value Reference Range Interpretation Comments PHOSPHORUS (test code = PHOS) 2.9 mg/dL 2.5-4.9 N [id number] 07:05:00* Test Item Value Reference Range Interpretation Comments MAGNESIUM (test code = MAG) 1.9 mg/dL 1.8-2.4 N [id number] 07:02:00* Test Item Value Reference Range Interpretation Comments PHOSPHORUS (test code = PHOS) mg/dL 2.5-4.9 [id number] 07:02:00* Test Item Value Reference Range Interpretation Comments MAGNESIUM (test code = MAG) 1.9 mg/dL 1.8-2.4 N BASIC METABOLIC [id number] 06:16:00* Test Item Value Reference Range Interpretation [...] CA) 8.7 mg/dL 8.5-10.1 N CBC W/O [id number] 06:12:00* Test Item Value Reference Range Interpretation [...] 40 K/mm3 150-450 LL Results called to [id number] by МАРИНА 08/14/19 0611Critical results verified and read back by Nurse? Y BASIC METABOLIC [id number] 06:08:00* Test Item Value Reference Range Interpretation [...] CA) mg/dL 8.5-10.1 - XR CHEST 1 [id number] 06:08:00 [facility] [place]: B St: DIS FAX: Sil Farrar MD Name: MOJGAN CUMMINGS [facility] : 1950 Age/S: 69/F [address] [facility] Unit #: [id number] Loc: V.[address] [place] [address] Phys: Sil Farrar MD Acct: [id number] Dis Date: [id number] Status: DIS IN PHONE #: [phone] Exam Date: 08/14/2019528 FAX #: [phone] Reason: ventilator, copd EXAMS: CPT CODE: [id number] XR CHEST 1 V 84894 HISTORY: Respiratory failure, ventilator, copd TECHNIQUE: AP chest x-ray COMPARISON: Previous day. IMPRESSION: Increasing bibasilar subsegmental atelectasis. No airspace consolidation or pleural effusion. Normal heart size. Mediastinal silhouette is unremarkable. Tracheostomy tube. LOCATION: LP at 0608 Reported and signed by: Lenka Farrar D.O. CC: Lenore Barraza MD; Sil Farrar MD Technologist: OCTAVIO VASQUEZ JR; Abigail Darling Trnscrd Date/Time/By: 08/14/2019 (0608) : By: [email or web address] Orig Print D/T: S: 08/14/2019 (0611) PAGE 1 Signed Report - XR CHEST 1 V 2019-08-14 06:08:00 FAX: Lenore Barraza [place]: B St: ADM FAX: Sil Farrar MD Name: MOJGAN CUMMINGS [facility] : 1950 Age/S: 69/F [address] [facility] Unit #: [id number] Loc: [address] [address] Phys: Sil Farrar MD Acct: [id number] Dis Date: Status: ADM IN PHONE #: [phone] Exam Date: 08/14/2019528 FAX #: [phone] Reason: ventilator, copd EXAMS: CPT CODE: [id number] XR CHEST 1 V 62544 HISTORY: Respiratory failure, ventilator, copd TECHNIQUE: AP chest x-ray COMPARISON: Previous day. IMPRESSION: Increasing bibasilar subsegmental atelectasis. No airspace consolidation or pleural effusion. Normal heart size. Mediastinal silhouette is unremarkable. Tracheostomy tube. LOCATION: LP at 0608 Reported and signed by: Lenka Farrar D.O. CC: Lenore Barraza MD; Sil Farrar MD Technologist: OCTAVIO VASQUEZ JR; Abigail Darling Trnscrd Date/Time/By: 08/14/2019 (08) : By: [email or web address] Orig Print D/T: S: 08/14/2019 (610) PAGE 1 Signed Report - XR CHEST 1 V 2019-08-14 06:08:00 FAX: Lenore Barraza [place]: B St: DIS FAX: Sil Farrar MD Name: MOJGAN CUMMINGS [facility] : 1950 Age/S: 69/F [address] [facility] Unit #: [id number] Loc: [place] [address] Phys: Sil Farrar MD Acct: [id number] Dis Date: 20190819 Status: DIS IN PHONE #: [phone] Exam Date: 08/14/2019528 FAX #: [phone] Reason: ventilator, copd EXAMS: CPT CODE: [id number] XR CHEST 1 V 24423 HISTORY: Respiratory failure, ventilator, copd TECHNIQUE: AP chest x-ray COMPARISON: Previous day. IMPRESSION: Increasing bibasilar subsegmental atelectasis. No airspace consolidation or pleural effusion. Normal heart size. Mediastinal silhouette is unremarkable. Tracheostomy tube. LOCATION: LP at 0608 Reported and signed by: Lenka Farrar D.O. CC: Lenore Barraza MD; Sil Farrar MD Technologist: OCTAVIO VASQUEZ JR; Abigail Darling Trnscrd Date/Time/By: 08/14/2019 (0608) : By: [email or web address] Orig Print D/T: S: 08/14/2019 (610) PAGE 1 Signed Report [id number] 20:46:00* Test Item Value Reference Range Interpretation Comments GLUBED (test code = GLUBED) 97 mg/dL 74-106 N Performed by certified collar shaper operator at [facility] BASIC METABOLIC [id number] 16:02:00* Test Item Value Reference Range Interpretation [...] code = CA) 8.6 mg/dL 8.5-10.1 N [id number] 16:02:00* Test Item Value Reference Range Interpretation Comments PHOSPHORUS (test code = PHOS) 4.3 mg/dL 2.5-4.9 N [id number] 16:02:00* Test Item Value Reference Range Interpretation Comments MAGNESIUM (test code = MAG) 2.3 mg/dL 1.8-2.4 N CALCIUM [id number] 16:02:00* Test Item Value Reference Range Interpretation Comments CALCIUM IONIZED (test code = ERICH) 1.25 mmol/L 1.12-1.32 N BASIC METABOLIC [id number] 15:34:00* Test Item Value Reference Range Interpretation [...] code = CA) 8.6 mg/dL 8.5-10.1 N [id number] 15:34:00* Test Item Value Reference Range Interpretation Comments PHOSPHORUS (test code = PHOS) 4.3 mg/dL 2.5-4.9 N [id number] 15:34:00* Test Item Value Reference Range Interpretation Comments MAGNESIUM (test code = MAG) 2.3 mg/dL 1.8-2.4 N CALCIUM [id number] 15:34:00* Test Item Value Reference Range Interpretation Comments CALCIUM IONIZED (test code = ERICH) mmol/L 1.12-1.32 T3 [id number] 15:09:00* Test Item Value Reference Range Interpretation Comments T3 FREE (test code = T3F) 1.8 pg/mL 2.0-4.4 L Pe rformed At: [facility] [address] [place], [place] [id number] Rashawn Swenson MD Ph:[phone] ARTERIAL BLOOD [id number] 09:51:00* Test Item Value Reference Range Interpretation [...] by Kavita :51 - 08/13/2019; by RISSA ABG O2 SATURATION [...] by Kavita 09:51 - 08/13/2019; by RISSA METHEMOGLOBIN (test code = METHGB) 0.6 % 0.0-1.50 N O2 CONTENT (test code = O2CT) 15.7 % vol 18.0-22.0 L CBC W/AUTO [id number] 07:10:00* Test Item Value Reference Range Interpretation [...] = MDIFF) NO, ONLY SCAN NEEDED DIFFERENTIAL [id number] 07:10:00* Test Item Value Reference Range Interpretation Comments STAIN ACCEPTABILITY (test code = STN ACCEPTABLE) STAIN ACCEPTABLE POIKILOCYTOSIS (test code = POIK) 1+ TEAR DROP CELLS (test code = TEAR) 1+ PLATELET ESTIMATE (test code = PLTEST) DECREASED PLATELET MORPHOLOGY (test code = PLTMORPH) APPEAR LARGE TOTAL [id number] 07:08:00* Test Item Value Reference Range Interpretation Comments TOTAL T3 (test code = T3) 61 ng/dL 71-180 L Pe rformed At: [facility] [address] [id number] Rashawn Swenson MD Ph:[phone] THYROID STIMULATING [id number] 07:08:00* Test Item Value Reference Range Interpretation Comments THYROID STIMULATING HORMONE (test code = TSH) 7.850 uIU/mL 0.36-3.7 4 H TSH REFERENCE RANGES: EUTHYROID: 0.35 - 4.3 mIU/mL HYPO : > 5.5 mIU/mL HYPER : < 0.35 mIU/mL TSH REFLEX TO [id number] 07:08:00* Test Item Value Reference Range Interpretation Comments TSH REFLEX TO FT4 (test code = TSHREFLEX) 7.9 0.4-5.5 H - XR CHEST 1 [id number] 06:23:00 [facility] [place]: B St: DIS FAX: Sil Farrar MD Name: MOJGAN CUMMINGS [facility] : 1950 Age/S: 69/F [address] [facility] Unit #: [id number] Loc: V.[address] [place] [address] Phys: Sil Farrar MD Acct: [id number] Dis Date: [id number] Status: DIS IN PHONE #: [phone] Exam Date: 08/13/2019 05 FAX #: [phone] Reason: ventilator, copd EXAMS: CPT CODE: [id number] XR CHEST 1 V 02145 HISTORY: Respiratory failure, ventilator, copd TECHNIQUE: AP chest x-ray COMPARISON: Previous day. IMPRESSION: No airspace consolidation or pleural effusion. Mild right basilar subsegmental atelectasis. Normal heart size. Mediastinal silhouette is unremarkable. Tracheostomy tube. LOCATION: at 0623 Reported and signed by: Lenka Farrar D.O. CC: Lenore Barraza MD; Sil Farrar MD Technologist: OCTAVIO VASQUEZ JR; Abigail Darling Trnscrd Date/Time/By: 08/13/2019 (06) : By: [email or web address] Orig Print D/T: S: 08/13/2019 (0670) PAGE 1 Signed Report - XR CHEST 1 [id number] 06:23:00 FAX: Lenore Barraza [place]: B St: ADM FAX: Sil Farrar MD Name: MOJGAN CUMMINGS [facility] : 1950 Age/S: 69/F [address] [facility] Unit #: [id number] Loc: V.[address] [place] [address] Phys: Sil Farrar MD Acct: [id number] Dis Date: Status: ADM IN PHONE #: [phone] Exam Date: 08/13/2019528 FAX #: [phone] Reason: ventilator, copd EXAMS: CPT CODE: [id number] XR CHEST 1 V 62906 HISTORY: Respiratory failure, ventilator, copd AHSAN HNIQUE: AP chest x-ray COMPARISON: Previous day. I MPRESSION: No airspace consolidation or pleural effusion. Mild right basilar subsegmental atelectasis. Normal heart size. Mediastinal silhouette is unremarkable. Tracheostomy tube. LOCATION: LP at 0623 Reported and si gned by: Lenka Farrar D.O. CC: Lenore Barraza MD; Arvin Farrar MD Technologist: OCTAVIO VASQUEZ JR; Abigail Darling Trnscrd Date/Time/By: 08/13/2019 (68) : By: [email or web address] Orig Print D/T: S: 08/13/2019 (2047) PAGE 1 Signed Report - XR CHEST 1 [id number] 06:23:00 FAX: Lenore Barraza [place]: B St: DIS FAX: Sil Farrar MD Name: MOJGAN CUMMINGS [facility] : 1950 Age/S: 69/F [address] Unit #: [id number] Loc: V.[address] [place] [address] Phys: Sil Farrar MD Acct: [id number] Dis Date: [id number] Status: DIS IN PHONE #: [phone] Exam Date: 08/13/2019528 FAX #: [phone] Reason: ventilator, copd EXAMS: CPT CODE: [id number] XR CHEST 1 V 50698 HISTORY: Respiratory failure, ventilator, copd TECHNIQUE: AP chest x-ray COMPARISON: Previous day. IMPRESSION: No airspace consolidation or pleural effusion. Mild right basilar subsegmental atelectasis. Normal heart size. Mediastinal silhouette is unremarkable. Tracheostomy tube. LOCATION: LP at 0623 Reported and signed by: Lenka Farrar D.O. CC: Lenore Barraza MD; Sil Farrar MD Technologist: OCTAVIO Darling Trnnmrd Date/Time/By: 08/13/2019 (622) : By: [email or web address] Orig Print D/T: S: 08/13/2019 (4717) PAGE 1 Signed Report BASIC METABOLIC [id number] 06:15:00* Test Item Value Reference Range Interpretation [...] code = CA) 8.5 mg/dL 8.5-10.1 N [id number] 06:15:00* Test Item Value Reference Range Interpretation Comments PHOSPHORUS (test code = PHOS) 3.9 mg/dL 2.5-4.9 N [id number] 06:15:00* Test Item Value Reference Range Interpretation Comments MAGNESIUM (test code = MAG) 2.3 mg/dL 1.8-2.4 N BASIC METABOLIC [id number] 06:10:00* Test Item Value Reference Range Interpretation [...] CALCIUM (test code = CA) mg/dL 8.5-10.1 [id number] 06:10:00* Test Item Value Reference Range Interpretation Comments PHOSPHORUS (test code = PHOS) mg/dL 2.5-4.9 [id number] 06:10:00* Test Item Value Reference Range Interpretation Comments MAGNESIUM (test code = MAG) mg/dL 1.8-2.4 CBC W/AUTO [id number] 06:00:00* Test Item Value Reference Range Interpretation [...] = MDIFF) NO, ONLY SCAN NEEDED DIFFERENTIAL [id number] 06:00:00* Test Item Value Reference Range Interpretation Comments STAIN ACCEPTABILITY (test code = STN ACCEPTABLE) CABOT RINGS (test code = CAB) MORPHOLOGY COMMENT (test code = MOC) PLATELET ESTIMATE (test code = PLTEST) PLATELET MORPHOLOGY (test code = PLTMORPH) CBC W/AUTO [id number] 06:00:00* Test Item Value Reference Range Interpretation [...] = MDIFF) NO, ONLY SCAN NEEDED DIFFERENTIAL [id number] 06:00:00* Test Item Value Reference Range Interpretation Comments STAIN ACCEPTABILITY (test code = STN ACCEPTABLE) CABOT RINGS (test code = CAB) MORPHOLOGY COMMENT (test code = MOC) PLATELET ESTIMATE (test code = PLTEST) PLATELET MORPHOLOGY (test code = PLTMORPH) CBC W/AUTO [id number] 06:00:00* Test Item Value Reference Range Interpretation [...] = MDIFF) NO, ONLY SCAN NEEDED DIFFERENTIAL [id number] 06:00:00* Test Item Value Reference Range Interpretation Comments STAIN ACCEPTABILITY (test code = STN ACCEPTABLE) MORPHOLOGY COMMENT (test code = MOC) PLATELET ESTIMATE (test code = PLTEST) PLATELET MORPHOLOGY (test code = PLTMORPH) CBC W/AUTO [id number] 06:00:00* Test Item Value Reference Range Interpretation [...] = MDIFF) NO, ONLY SCAN NEEDED DIFFERENTIAL [id number] 06:00:00* Test Item Value Reference Range Interpretation Comments STAIN ACCEPTABILITY (test code = STN ACCEPTABLE) CABOT RINGS (test code = CAB) MORPHOLOGY COMMENT (test code = MOC) PLATELET ESTIMATE (test code = PLTEST) PLATELET MORPHOLOGY (test code = PLTMORPH) BASIC METABOLIC [id number] 01:19:00* Test Item Value Reference Range Interpretation [...] code = CA) 8.6 mg/dL 8.5-10.1 N [id number] 01:19:00* Test Item Value Reference Range Interpretation Comments PHOSPHORUS (test code = PHOS) 4.0 mg/dL 2.5-4.9 N [id number] 01:19:00* Test Item Value Reference Range Interpretation Comments MAGNESIUM (test code = MAG) 2.1 mg/dL 1.8-2.4 N [id number] 01:04:00* Test Item Value Reference Range Interpretation Comments GLUBED (test code = GLUBED) 109 mg/dL 74-106 H Performed by certified collar shaper operator at [facility] BASIC METABOLIC [id number] 22:00:00* Test Item Value Reference Range Interpretation [...] code = CA) 8.5 mg/dL 8.5-10.1 N [id number] 22:00:00* Test Item Value Reference Range Interpretation Comments PHOSPHORUS (test code = PHOS) 3.4 mg/dL 2.5-4.9 N [id number] 22:00:00* Test Item Value Reference Range Interpretation Comments MAGNESIUM (test code = MAG) 2.6 mg/dL 1.8-2.4 H BASIC METABOLIC [id number] 21:53:00* Test Item Value Reference Range Interpretation [...] code = CA) 8.5 mg/dL 8.5-10.1 N [id number] 21:53:00* Test Item Value Reference Range Interpretation Comments PHOSPHORUS (test code = PHOS) 3.4 mg/dL 2.5-4.9 N [id number] 21:53:00* Test Item Value Reference Range Interpretation Comments MAGNESIUM (test code = MAG) 2.6 mg/dL 1.8-2.4 H [id number] 20:07:00* Test Item Value Reference Range Interpretation Comments GLUBED (test code = GLUBED) 100 mg/dL 74-106 N Performed by certified collar shaper operator at [facility] [id number] 17:59:00* Test Item Value Reference Range Interpretation Comments GLUBED (test code = GLUBED) 108 mg/dL 74-106 H Performed by certified collar shaper operator at [facility] BASIC METABOLIC [id number] 17:00:00* Test Item Value Reference Range Interpretation [...] code = CA) 8.6 mg/dL 8.5-10.1 N [id number] 17:00:00* Test Item Value Reference Range Interpretation Comments PHOSPHORUS (test code = PHOS) 1.8 mg/dL 2.5-4.9 L [id number] 17:00:00* Test Item Value Reference Range Interpretation Comments MAGNESIUM (test code = MAG) 1.9 mg/dL 1.8-2.4 N BASIC METABOLIC [id number] 16:56:00* Test Item Value Reference Range Interpretation [...] CALCIUM (test code = CA) mg/dL 8.5-10.1 [id number] 16:56:00* Test Item Value Reference Range Interpretation Comments PHOSPHORUS (test code = PHOS) mg/dL 2.5-4.9 [id number] 16:56:00* Test Item Value Reference Range Interpretation Comments MAGNESIUM (test code = MAG) mg/dL 1.8-2.4 CBC W/AUTO [id number] 16:35:00* Test Item Value Reference Range Interpretation [...] 35 K/mm3 150-450 LL Results called to [id number] by V.LAB.HD1 08/12/19 1531Critical results verified and [...] = MDIFF) NO, ONLY SCAN NEEDED DIFFERENTIAL [id number] 16:35:00* Test Item Value Reference Range Interpretation Comments STAIN ACCEPTABILITY (test code = STN ACCEPTABLE) STAIN ACCEPTABLE MORPHOLOGY COMMENT (test code = MOC) NORMAL PLATELET ESTIMATE (test code = PLTEST) DECREASED PLATELET MORPHOLOGY (test code = PLTMORPH) NORMAL [id number] 16:17:00* Test Item Value Reference Range Interpretation Comments GLUBED (test code = GLUBED) 107 mg/dL 74-106 H Performed by certified collar shaper operator at [facility] CBC W/AUTO [id number] 15:31:00* Test Item Value Reference Range Interpretation [...] 35 K/mm3 150-450 LL Results called to [id number] by [email or web address] 08/12/19 1531Critical results verified and [...] = MDIFF) NO, ONLY SCAN NEEDED DIFFERENTIAL [id number] 15:31:00* Test Item Value Reference Range Interpretation Comments STAIN ACCEPTABILITY (test code = STN ACCEPTABLE) CABOT RINGS (test code = CAB) MORPHOLOGY COMMENT (test code = MOC) PLATELET ESTIMATE (test code = PLTEST) PLATELET MORPHOLOGY (test code = PLTMORPH) CBC W/AUTO [id number] 15:31:00* Test Item Value Reference Range Interpretation [...] 35 K/mm3 150-450 LL Results called to [id number] by V.LAB.HD1 08/12/19 1531Critical results verified and [...] = MDIFF) NO, ONLY SCAN NEEDED DIFFERENTIAL [id number] 15:31:00* Test Item Value Reference Range Interpretation Comments STAIN ACCEPTABILITY (test code = STN ACCEPTABLE) CABOT RINGS (test code = CAB) MORPHOLOGY COMMENT (test code = MOC) PLATELET ESTIMATE (test code = PLTEST) PLATELET MORPHOLOGY (test code = PLTMORPH) CBC W/AUTO [id number] 15:31:00* Test Item Value Reference Range Interpretation [...] 35 K/mm3 150-450 LL Results called to [id number] by retickrLAB.HD1 08/12/19 1531Critical results verified and read back [...] = MDIFF) NO, ONLY SCAN NEEDED DIFFERENTIAL [id number] 15:31:00* Test Item Value Reference Range Interpretation Comments STAIN ACCEPTABILITY (test code = STN ACCEPTABLE) MORPHOLOGY COMMENT (test code = MOC) PLATELET ESTIMATE (test code = PLTEST) PLATELET MORPHOLOGY (test code = PLTMORPH) CBC W/AUTO [id number] 15:31:00* Test Item Value Reference Range Interpretation [...] 35 K/mm3 150-450 LL Results called to [id number] by V.LAB.HD1 08/12/19 1531Critical results verified and [...] = MDIFF) NO, ONLY SCAN NEEDED DIFFERENTIAL [id number] 15:31:00* Test Item Value Reference Range Interpretation Comments STAIN ACCEPTABILITY (test code = STN ACCEPTABLE) CABOT RINGS (test code = CAB) MORPHOLOGY COMMENT (test code = MOC) PLATELET ESTIMATE (test code = PLTEST) PLATELET MORPHOLOGY (test code = PLTMORPH) TOTAL [id number] 14:18:00* Test Item Value Reference Range Interpretation Comments TOTAL T3 (test code = T3) THYROID STIMULATING [id number] 14:18:00* Test Item Value Reference Range Interpretation Comments THYROID STIMULATING HORMONE (test code = TSH) 7.850 uIU/mL 0.36-3.7 4 H TSH REFERENCE RANGES: EUTHYROID: 0.35 - 4.3 mIU/mL HYPO : > 5.5 mIU/mL HYPER : < 0.35 mIU/mL TSH REFLEX TO [id number] 14:18:00* Test Item Value Reference Range Interpretation Comments TSH REFLEX TO FT4 (test code = TSHREFLEX) 7.9 0.4-5.5 H [id number] 14:13:00* Test Item Value Reference Range Interpretation Comments GLUBED (test code = GLUBED) 115 mg/dL 74-106 H Performed by certified collar shaper operator at [facility] BASIC METABOLIC [id number] 12:40:00* Test Item Value Reference Range Interpretation Comments SODIUM (test code = NA) 141 mmol/L 136-145 N POTASSIUM (test code = K) 2.8 mmol/L 3.5-5.1 Re sults called to [id number] by V.LAB.WTRISTIAN 08/12/19 1238Critical results verified and read back [...] code = CA) 9.0 mg/dL 8.5-10.1 N [id number] 12:40:00* Test Item Value Reference Range Interpretation Comments PHOSPHORUS (test code = PHOS) 2.3 mg/dL 2.5-4.9 L [id number] 12:40:00* Test Item Value Reference Range Interpretation Comments MAGNESIUM (test code = MAG) 2.0 mg/dL 1.8-2.4 N LACTIC [id number] 12:33:00* Test Item Value Reference Range Interpretation Comments LACTIC ACID (test code = LACT) 0.9 mmol/L 0.4-1.9 N [id number] 12:26:00* Test Item Value Reference Range Interpretation Comments GLUBED (test code = GLUBED) 121 mg/dL 74-106 H Performed by certified collar shaper operator at [facility] [id number] 11:26:00* Test Item Value Reference Range Interpretation Comments GLUBED (test code = GLUBED) 111 mg/dL 74-106 H Performed by certified collar shaper operator at [facility] [id number] 09:26:00* Test Item Value Reference Range Interpretation Comments GLUBED (test code = GLUBED) 159 mg/dL 74-106 H Performed by certified collar shaper operator at [facility] LACTIC [id number] 08:41:00* Test Item Value Reference Range Interpretation Comments LACTIC ACID (test code = LACT) 2.0 mmol/L 0.4-1.9 H Results called to [id number] by V.LABMARTIN 08/12/19 0841Critical results verified and read back by Nurse? Y BASIC METABOLIC [id number] 08:38:00* Test Item Value Reference Range Interpretation [...] code = CA) 8.9 mg/dL 8.5-10.1 N [id number] 08:38:00* Test Item Value Reference Range Interpretation Comments PHOSPHORUS (test code = PHOS) 4.2 mg/dL 2.5-4.9 N [id number] 08:38:00* Test Item Value Reference Range Interpretation Comments MAGNESIUM (test code = MAG) 2.2 mg/dL 1.8-2.4 N BASIC METABOLIC [id number] 08:30:00* Test Item Value Reference Range Interpretation [...] CALCIUM (test code = CA) mg/dL 8.5-10.1 [id number] 08:30:00* Test Item Value Reference Range Interpretation Comments PHOSPHORUS (test code = PHOS) mg/dL 2.5-4.9 [id number] 08:30:00* Test Item Value Reference Range Interpretation Comments MAGNESIUM (test code = MAG) mg/dL 1.8-2.4 [id number] 08:05:00* Test Item Value Reference Range Interpretation Comments GLUBED (test code = GLUBED) 65 mg/dL 74-106 L Performed by certified collar shaper operator at [facility] [id number] 07:26:00* Test Item Value Reference Range Interpretation Comments GLUBED (test code = GLUBED) 66 mg/dL 74-106 L Performed by certified collar shaper operator at [facility] - XR CHEST 1 [id number] 07:23:00 FAX: Lenore Barraza [place]: [address] St: DIS FAX: Sil Farrar MD Name: MOJGAN CUMMINGS [facility] : 1950 Age/S: 69/F [address] Unit #: [id number] Loc: V.207 [place] [address] Phys: Sil Farrar MD Acct: [id number] Dis Date: [id number] Status: DIS IN PHONE #: [phone] Exam Date: 08/12/2019 0500 FAX #: [phone] Reason: ventilator, copd EXAMS: CPT CODE: [id number] XR CHEST 1 V 46140 HISTORY: Respiratory failure, ventilator, copd TECHNIQUE: AP chest x-ray COMPARISON: Previous day. IMPRESSION: No airspace consolidation or pleural effusion. Normal heart size. Mediastinal silhouette is unremarkable. Tracheostomy tube. LOCATION: LP at 0723 Reported and signed by: Lenka Farrar D.O. CC: Lenore Luna MD; Sil Farrar MD Technologist: Wicho De Luna(R); RT CISCO(R) Trnscrd Date/Time/By: 08/12/2019 (722 ) : By: [email or web address] [facility] Print D/T: S: 08/12/2019 (0752) PAGE 1 Signed Report - XR CHEST 1 [id number] 07:23:00 FAX: Lenore Barraza [place]: B St: ADM FAX: Sil Farrar MD Name: MOJGAN CUMMINGS [facility] : 1950 Age/S: 69/F [address] Unit #: [id number] Loc: V.[place] [address] Phys: Sil Farrar MD Acct: [id number] Dis Date: Status: ADM IN PHONE #: [phone] Exam Date: 08/12/2019 0500 FAX #: [phone] Reason: ventilator, copd EXAMS: CPT CODE: [id number] XR CHEST 1 V 98990 HISTORY: Respiratory failure, ventilator, copd TECHNIQUE: AP [...] S: 08/12/2019 (07) PAGE 1 Signed Report - XR CHEST 1 [id number] 07:23:00 FAX: Lenore Barraza [place]: B St: DIS FAX: Sil Farrar MD Name: MOJGAN CUMMINGS [facility] : 1950 Age/S: 69/F [address] Unit #: [id number] Loc: V.2078 [place] [address] Phys: Sil Farrar MD Acct: [id number] Dis Date: [id number] Status: DIS IN PHONE #: [phone] Exam Date: 08/12/2019 0500 FAX #: [phone] Reason: ventilator, copd EXAMS: CPT CODE: [id number] XR CHEST 1 V 12103 HISTORY: Respiratory failure, ventilator, copd TECHNIQUE: AP chest x-ray COMPARISON: Previous day. IMPRESSION: No airspace consolidation or pleural effusion. Normal heart size. Mediastinal silhouette is unremarkable. Tracheostomy tube. LOCATION: at 0723 Reported and signed by: Lenka Farrar D.O. CC: Lenore Luna MD; Sil Farrar MD Technologist: Wicho Love T(R); RT CISCO(R) Trnscrd Date/Time/By: 08/12/2019 (722 ) : By: [email or web address] Orig Print D/T: S: 08/12/2019 (77) PAGE 1 Signed Report LACTIC [id number] 05:29:00* Test Item Value Reference Range Interpretation Comments LACTIC ACID (test code = LACT) 2.0 mmol/L 0.4-1.9 H Results called to OVQ8072. by JOSEY 08/12/19 0529Critical results verified and read back by Nurse? Y Specimen 3+ Hemolysed.Some results MAY NOT be accurate due to hemolysis. BASIC METABOLIC [id number] 05:26:00* Test Item Value Reference Range Interpretation [...] CA) 8.8 mg/dL 8.5-10.1 N BASIC METABOLIC [id number] 05:20:00* Test Item Value Reference Range Interpretation [...] code = CA) 8.8 mg/dL 8.5-10.1 N [id number] 05:19:00* Test Item Value Reference Range Interpretation Comments MAGNESIUM (test code = MAG) 2.5 mg/dL 1.8-2.4 H Specimen 4+ Hemolysed.Some results MAY NOT be accurate due to hemolysis. [id number] 05:16:00* Test Item Value Reference Range Interpretation Comments MAGNESIUM (test code = MAG) 2.5 mg/dL 1.8-2.4 H [id number] 05:11:00* Test Item Value Reference Range Interpretation Comments PHOSPHORUS (test code = PHOS) 1.7 mg/dL 2.5-4.9 L Specimen 4+ Hemolysed.Some results MAY NOT be accurate due to hemolysis. CALCIUM [id number] 05:11:00* Test Item Value Reference Range Interpretation Comments CALCIUM IONIZED (test code = ERICH) 1.26 mmol/L 1.12-1.32 N ARTERIAL BLOOD [id number] 05:04:00* Test Item Value Reference Range Interpretation [...] 16.4 % vol 18.0-22.0 L CBC W/O [id number] 05:02:00* Test Item Value Reference Range Interpretation [...] 30 K/mm3 150-450 LL Results called to [id number] by V.LAB.[facility] 08/12/19 0502Critical results verified and read back by Nurse? Y [id number] 04:45:00* Test Item Value Reference Range Interpretation Comments PHOSPHORUS (test code = PHOS) 1.7 mg/dL 2.5-4.9 L CALCIUM [id number] 04:45:00* Test Item Value Reference Range Interpretation Comments CALCIUM IONIZED (test code = ERICH) 1.26 mmol/L 1.12-1.32 N [id number] 04:32:00* Test Item Value Reference Range Interpretation Comments PHOSPHORUS (test code = PHOS) mg/dL 2.5-4.9 CALCIUM [id number] 04:32:00* Test Item Value Reference Range Interpretation Comments CALCIUM IONIZED (test code = ERICH) 1.26 mmol/L 1.12-1.32 N THROMBOPLASTIN TIME [id number] 00:45:00* Test Item Value Reference Range Interpretation Comments THROMBOPLASTIN TIME PARTIAL (test code = PTT) 31.2 seconds 25.0-36. 5 N IS PATIENT ON ANTICOAGULANTS? [id number] 00:45:00* Test Item Value Reference Range Interpretation Comments FIBRINOGEN (test code = FIB) 464 mg/dL 200-400 H IS PATIENT ON ANTICOAGULANTS? [id number] 00:45:00* Test Item Value Reference Range Interpretation Comments D-DIMER (test code = DDIMER) 2253.00 ng/mLFEU 0-500 Results called to [id number] by [facility] 08/12/19 0017Critical results verified and read [...] - IS PATIENT ON ANTICOAGULANTS? NHEPARIN INDUCED [id number] 00:45:00 * Test Item Value Reference Range Interpretation Comments HEPARIN INDUCED THROMBOCYTOPEN (test code = HIT) NEGATIVE NEGAT [place] IS PATIENT ON ANTICOAGULANTS? NTHROMBOPLASTIN TIME [id number] 00:18:00* Test Item Value Reference Range Interpretation Comments THROMBOPLASTIN TIME PARTIAL (test code = PTT) 31.2 seconds 25.0-36. 5 N IS PATIENT ON ANTICOAGULANTS? [id number] 00:18:00* Test Item Value Reference Range Interpretation Comments FIBRINOGEN (test code = FIB) 464 mg/dL 200-400 H IS PATIENT ON ANTICOAGULANTS? [id number] 00:18:00* Test Item Value Reference Range Interpretation Comments D-DIMER (test code = DDIMER) 2253.00 ng/mLFEU 0-500 Results called to [id number] by [facility] 08/12/19 0017Critical results verified and read [...] - IS PATIENT ON ANTICOAGULANTS? NHEPARIN INDUCED [id number] 00:18:00 * Test Item Value Reference Range Interpretation Comments HEPARIN INDUCED THROMBOCYTOPEN (test code = HIT) NEGAT [place] IS PATIENT ON ANTICOAGULANTS? NCBC W/AUTO [id number] 00:14:00* Test Item Value Reference Range Interpretation [...] 28 K/mm3 150-450 LL Results called to [id number] by FERNANDO 08/11/19 2348Critical results verified and [...] SCAN NEEDED SPECIMEN COMMENTS: BLOOD IN LABDIFFERENTIAL [id number] 00:14:00* Test Item Value Reference Range Interpretation Comments STAIN ACCEPTABILITY (test code = STN ACCEPTABLE) STAIN ACCEPTABLE POIKILOCYTOSIS (test code = POIK) 1+ ELLIPTOCYTES (test code = ELL) 1+ CRENATED CELLS (test code = CREN) 1+ PLATELET ESTIMATE (test code = PLTEST) DECREASED PLATELET MORPHOLOGY (test code = PLTMORPH) APPEAR LARGE SPECIMEN COMMENTS: BLOOD IN LABLACTIC [id number] 00:06:00* Test Item Value Reference Range Interpretation Comments LACTIC ACID (test code = LACT) 3.0 mmol/L 0.4-1.9 HH Results called to [id number] by JOSEY 08/12/19 0005Critical results verified and read back by Nurse? Y BASIC METABOLIC [id number] 00:05:00* Test Item Value Reference Range Interpretation [...] code = CA) 9.2 mg/dL 8.5-10.1 N [id number] 00:05:00* Test Item Value Reference Range Interpretation Comments PHOSPHORUS (test code = PHOS) 2.0 mg/dL 2.5-4.9 L [id number] 00:05:00* Test Item Value Reference Range Interpretation Comments MAGNESIUM (test code = MAG) 2.3 mg/dL 1.8-2.4 N CALCIUM [id number] 00:05:00* Test Item Value Reference Range Interpretation Comments CALCIUM IONIZED (test code = ERICH) 1.31 mmol/L 1.12-1.32 N BASIC METABOLIC [id number] 23:58:00* Test Item Value Reference Range Interpretation [...] CALCIUM (test code = CA) mg/dL 8.5-10.1 [id number] 23:58:00* Test Item Value Reference Range Interpretation Comments PHOSPHORUS (test code = PHOS) mg/dL 2.5-4.9 [id number] 23:58:00* Test Item Value Reference Range Interpretation Comments MAGNESIUM (test code = MAG) mg/dL 1.8-2.4 CALCIUM [id number] 23:58:00* Test Item Value Reference Range Interpretation Comments CALCIUM IONIZED (test code = ERICH) 1.31 mmol/L 1.12-1.32 N BASIC METABOLIC [id number] 23:56:00* Test Item Value Reference Range Interpretation [...] CALCIUM (test code = CA) mg/dL 8.5-10.1 [id number] 23:56:00* Test Item Value Reference Range Interpretation Comments PHOSPHORUS (test code = PHOS) mg/dL 2.5-4.9 [id number] 23:56:00* Test Item Value Reference Range Interpretation Comments MAGNESIUM (test code = MAG) mg/dL 1.8-2.4 CALCIUM [id number] 23:56:00* Test Item Value Reference Range Interpretation Comments CALCIUM IONIZED (test code = ERICH) 1.31 mmol/L 1.12-1.32 N CBC W/AUTO [id number] 23:54:00* Test Item Value Reference Range Interpretation [...] 28 K/mm3 150-450 LL Results called to [id number] by [facility] 08/11/19 2348Critical results verified and read [...] SCAN NEEDED SPECIMEN COMMENTS: BLOOD IN LABDIFFERENTIAL [id number] 23:54:00* Test Item Value Reference Range Interpretation Comments STAIN ACCEPTABILITY (test code = STN ACCEPTABLE) MORPHOLOGY COMMENT (test code = MOC) PLATELET ESTIMATE (test code = PLTEST) PLATELET MORPHOLOGY (test code = PLTMORPH) SPECIMEN COMMENTS: BLOOD IN LABCBC W/AUTO [id number] 23:49:00* Test Item Value Reference Range Interpretation [...] 28 K/mm3 150-450 LL Results called to [id number] by V.CELESTE.[facility] 08/11/19 2348Critical results verified and read [...] SCAN NEEDED SPECIMEN COMMENTS: BLOOD IN LABDIFFERENTIAL [id number] 23:49:00* Test Item Value Reference Range Interpretation Comments STAIN ACCEPTABILITY (test code = STN ACCEPTABLE) CABOT RINGS (test code = CAB) MORPHOLOGY COMMENT (test code = MOC) PLATELET ESTIMATE (test code = PLTEST) PLATELET MORPHOLOGY (test code = PLTMORPH) SPECIMEN COMMENTS: BLOOD IN LABCB W/AUTO [id number] 23:49:00* Test Item Value Reference Range Interpretation [...] 28 K/mm3 150-450 LL Results called to [id number] by FERNANDO 08/11/19 2348Critical results verified and [...] SCAN NEEDED SPECIMEN COMMENTS: BLOOD IN LABDIFFERENTIAL [id number] 23:49:00* Test Item Value Reference Range Interpretation Comments STAIN ACCEPTABILITY (test code = STN ACCEPTABLE) MORPHOLOGY COMMENT (test code = MOC) PLATELET ESTIMATE (test code = PLTEST) PLATELET MORPHOLOGY (test code = PLTMORPH) SPECIMEN COMMENTS: BLOOD IN LABCBC W/AUTO [id number] 23:49:00* Test Item Value Reference Range Interpretation [...] 28 K/mm3 150-450 LL Results called to [id number] by FERNANDO 08/11/19 2348Critical results verified and [...] SCAN NEEDED SPECIMEN COMMENTS: BLOOD IN LABDIFFERENTIAL [id number] 23:49:00* Test Item Value Reference Range Interpretation Comments STAIN ACCEPTABILITY (test code = STN ACCEPTABLE) CABOT RINGS (test code = CAB) MORPHOLOGY COMMENT (test code = MOC) PLATELET ESTIMATE (test code = PLTEST) PLATELET MORPHOLOGY (test code = PLTMORPH) SPECIMEN COMMENTS: BLOOD IN [id number] 22:25:00* Test Item Value Reference Range Interpretation Comments GLUBED (test code = GLUBED) 81 mg/dL 74-106 N Performed by certified collar shaper operator at [facility] PROCALCITONIN (PCT)2019-08-11 21:16:00* Test Item Value Reference [...] into account the patients history. BASIC METABOLIC [id number] 20:50:00* Test Item Value Reference Range Interpretation [...] code = CA) 9.2 mg/dL 8.5-10.1 N [id number] 20:50:00* Test Item Value Reference Range Interpretation Comments PHOSPHORUS (test code = PHOS) 3.3 mg/dL 2.5-4.9 N [id number] 20:50:00* Test Item Value Reference Range Interpretation Comments MAGNESIUM (test code = MAG) 2.6 mg/dL 1.8-2.4 H BASIC METABOLIC [id number] 20:46:00* Test Item Value Reference Range Interpretation [...] CALCIUM (test code = CA) mg/dL 8.5-10.1 [id number] 20:46:00* Test Item Value Reference Range Interpretation Comments PHOSPHORUS (test code = PHOS) mg/dL 2.5-4.9 [id number] 20:46:00* Test Item Value Reference Range Interpretation Comments MAGNESIUM (test code = MAG) mg/dL 1.8-2.4 CBC W/AUTO [id number] 20:44:00* Test Item Value Reference Range Interpretation [...] 27 K/mm3 150-450 LL Results called to [id number] by retickrLAB.HD1 08/11/19 2044Critical results verified and read back [...] code = MDIFF) NO, ONLY SCAN NEEDED [id number] 19:18:00* Test Item Value Reference Range Interpretation Comments GLUBED (test code = GLUBED) 71 mg/dL 74-106 L Performed by certified collar shaper operator at [facility] [id number] 18:04:00* Test Item Value Reference Range Interpretation Comments GLUBED (test code = GLUBED) 88 mg/dL 74-106 N Performed by certified collar shaper operator at [facility] CBC W/AUTO [id number] 17:35:00* Test Item Value Reference Range Interpretation [...] 29 K/mm3 150-450 LL Results called to [id number] by V.LAB.HD1 08/11/19 1647Critical results verified and [...] = MDIFF) NO, ONLY SCAN NEEDED DIFFERENTIAL [id number] 17:35:00* Test Item Value Reference Range Interpretation Comments STAIN ACCEPTABILITY (test code = STN ACCEPTABLE) STAIN ACCEPTABLE PLATELET ESTIMATE (test code = PLTEST) DECREASED PLATELET MORPHOLOGY (test code = PLTMORPH) NORMAL B-TYPE NATRIURETIC [id number] 17:23:00* Test Item Value Reference Range Interpretation Comments B-TYPE NATRIURETIC PEPTIDE (test code = BNP) 96.95 pgram/mL 0-100 N BASIC METABOLIC [id number] 17:22:00* Test Item Value Reference Range Interpretation [...] code = CA) 9.3 mg/dL 8.5-10.1 N [id number] 17:22:00* Test Item Value Reference Range Interpretation Comments PHOSPHORUS (test code = PHOS) 2.0 mg/dL 2.5-4.9 L [id number] 17:22:00* Test Item Value Reference Range Interpretation Comments MAGNESIUM (test code = MAG) 2.9 mg/dL 1.8-2.4 H [id number] 17:22:00* Test Item Value Reference Range Interpretation Comments CKMB (test code = CKMBT) 11.6 ng/mL 0-6.0 H [id number] 17:22:00* Test Item Value Reference Range Interpretation Comments TROPONIN-I (test code = TROPI) 1.680 ng/mL 0-0.045 HH [id number] 17:12:00* Test Item Value Reference Range Interpretation Comments GLUBED (test code = GLUBED) 74 mg/dL 74-106 N Performed by certified collar shaper operator at [facility] BASIC METABOLIC [id number] 16:52:00* Test Item Value Reference Range Interpretation [...] CALCIUM (test code = CA) mg/dL 8.5-10.1 [id number] 16:52:00* Test Item Value Reference Range Interpretation Comments PHOSPHORUS (test code = PHOS) mg/dL 2.5-4.9 [id number] 16:52:00* Test Item Value Reference Range Interpretation Comments MAGNESIUM (test code = MAG) mg/dL 1.8-2.4 [id number] 16:52:00* Test Item Value Reference Range Interpretation Comments CKMB (test code = CKMBT) ng/mL 0-6.0 [id number] 16:52:00* Test Item Value Reference Range Interpretation Comments TROPONIN-I (test code = TROPI) ng/mL 0-0.045 CBC W/AUTO [id number] 16:48:00* Test Item Value Reference Range Interpretation [...] 29 K/mm3 150-450 LL Results called to [id number] by V.LAB.HD1 08/11/19 1647Critical results verified and [...] = MDIFF) NO, ONLY SCAN NEEDED DIFFERENTIAL [id number] 16:48:00* Test Item Value Reference Range Interpretation Comments STAIN ACCEPTABILITY (test code = STN ACCEPTABLE) CABOT RINGS (test code = CAB) MORPHOLOGY COMMENT (test code = MOC) PLATELET ESTIMATE (test code = PLTEST) PLATELET MORPHOLOGY (test code = PLTMORPH) CBC W/AUTO [id number] 16:48:00* Test Item Value Reference Range Interpretation [...] 29 K/mm3 150-450 LL Results called to [id number] by VFayeLAB.HD1 08/11/19 1647Critical results verified and [...] = MDIFF) NO, ONLY SCAN NEEDED DIFFERENTIAL [id number] 16:48:00* Test Item Value Reference Range Interpretation Comments STAIN ACCEPTABILITY (test code = STN ACCEPTABLE) CABOT RINGS (test code = CAB) MORPHOLOGY COMMENT (test code = MOC) PLATELET ESTIMATE (test code = PLTEST) PLATELET MORPHOLOGY (test code = PLTMORPH) CBC W/AUTO [id number] 16:48:00* Test Item Value Reference Range Interpretation [...] 29 K/mm3 150-450 LL Results called to [id number] by V.LAB.HD1 08/11/19 1647Critical results verified and [...] = MDIFF) NO, ONLY SCAN NEEDED DIFFERENTIAL [id number] 16:48:00* Test Item Value Reference Range Interpretation Comments STAIN ACCEPTABILITY (test code = STN ACCEPTABLE) MORPHOLOGY COMMENT (test code = MOC) PLATELET ESTIMATE (test code = PLTEST) PLATELET MORPHOLOGY (test code = PLTMORPH) CBC W/AUTO [id number] 16:48:00* Test Item Value Reference Range Interpretation [...] 29 K/mm3 150-450 LL Results called to [id number] by V.LAB.HD1 08/11/19 1647Critical results verified and [...] = MDIFF) NO, ONLY SCAN NEEDED DIFFERENTIAL [id number] 16:48:00* Test Item Value Reference Range Interpretation Comments STAIN ACCEPTABILITY (test code = STN ACCEPTABLE) CABOT RINGS (test code = CAB) MORPHOLOGY COMMENT (test code = MOC) PLATELET ESTIMATE (test code = PLTEST) PLATELET MORPHOLOGY (test code = PLTMORPH) [id number] 16:29:00* Test Item Value Reference Range Interpretation Comments GLUBED (test code = GLUBED) 88 mg/dL 74-106 N Performed by certified collar shaper operator at [facility] [id number] 15:02:00* Test Item Value Reference Range Interpretation Comments GLUBED (test code = GLUBED) 106 mg/dL 74-106 N Performed by certified collar shaper operator at [facility] [id number] 14:07:00* Test Item Value Reference Range Interpretation Comments GLUBED (test code = GLUBED) 108 mg/dL 74-106 H Performed by certified collar shaper operator at [facility] ARTERIAL BLOOD [id number] 13:47:00* Test Item Value Reference Range Interpretation [...] vol 18.0-22.0 L - XR CHEST 1 [id number] 13:15:00 FAX: Alecia Girard NP [phone] [place]: [address] St: DIS FAX: Lenore Barraza Name: MOJGAN CUMMINGS [facility] : 1950 Age/S: 69/F [address] [facility] Unit #: [id number] Loc: [place] [address] Phys: Alecia Girard NP Acct: [id number] Dis Date: [id number] Status: DIS IN PHONE #: [phone] Exam Date: 08/11/2019 1245 FAX #: [phone] Reason: SHORTNESS OF BREATH EXAMS: CPT CODE: [id number] XR CHEST 1 V 42565 EXAM: Chest x-ray, one view; INFORMATION: Shortness of breath, respiratory failure; IMPRESSION: 1. No evidence of acute cardiothoracic abnormalities. 2. No change compared with the study obtained earlier today. Location code: [facility] at 1315 Reported and signed by: Rex Gates M.D. CC: Alecia Girard NP; Lenore Mendoza MD Technologist: Sherrie Bob RT(R); Misty florentino RT(R) Trnscrd Date/Time/By: 08/11/2019 (7475) : By: HarryGR W Orig Print D/T: S: 08/11/2019 (4694) PAGE 1 Signed Report - XR CHEST 1 V 2019-08-11 13:15:00 FAX: Alecia Girard NP [phone] [place]: St: [facility] FAX: Lenore Barraza Name: MOJGAN CUMMINGS [facility] : 1950 Age/S: 69/F [address] Unit #: [id number] Loc: V.S22 [place] [address] Phys: Alecia Girard NP Acct: [id number] Dis Date: Status: ADM IN PHONE #: [phone] Exam Date: 08/11/2019 1245 FAX #: [phone] Reason: SHORTNESS OF BREATH EXAMS: CPT CODE: [id number] XR CHEST 1 V 97871 EXAM: Chest x-ray, one view; INFORMATION: Shortness of breath, respiratory failure; IMPRESSION: 1. No evidence of acute cardiothoracic abnormalities. 2. No change compared with the study obtained earlier today. Location code: [facility] at 1315 Reported and signed by: Rex Gates M.D. CC: Alecia Girard NP; Lenore Mendoza MD Technologist: Sherrie Bob RT(R); Misty florentino RT(R) Trnnmrd Date/Time/By: 08/11/2019 (9130) : By: HarryGR W Orig Print D/T: S: 08/11/2019 (7713) PAGE 1 Signed Report - XR CHEST 1 V 2019-08-11 13:15:00 FAX: Alecia Girard NP [phone] [place]: St: DIS FAX: Lenore Barraza Name: MOJGAN CUMMINGS [facility] : 1950 Age/S: 69/F [address] Unit #: [id number] Loc: V.207 [place] [address] Phys: Alecia Girard DOCTOR CHIROPRACTIC Acct: [id number] Dis Date: [id number] Status: DIS IN PHONE #: [phone] Exam Date: 08/11/2019 1245 FAX #: [phone] Reason: SHORTNESS OF BREATH EXAMS: CPT CODE: [id number] XR CHEST 1 V 96027 EXAM: Chest x-ray, one view; INFORMATION: Shortness of breath, respiratory failure; IMPRESSION: 1. No evidence of acute cardiothoracic abnormalities. 2. No change compared with the study obtained earlier today. Location code: [facility] at 1315 Reported and signed by: Rex Gates M.D. CC: Alecia Girard DOCTOR CHIROPRACTIC; Lenore Mendoza MD Technologist: Sherrie Bob RT(R); Misty florentino RT(R) Trnscrd Date/Time/By: 08/11/2019 (9718) : By: HarryGR W Orig Print D/T: S: 08/11/2019 (8441) PAGE 1 Signed Report CBC W/AUTO [id number] 12:29:00* Test Item Value Reference Range Interpretation [...] 37 K/mm3 150-450 LL Results called to [id number] by V.LAB.HD1 08/11/19 1158Critical results verified and [...] = MDIFF) NO, ONLY SCAN NEEDED DIFFERENTIAL [id number] 12:29:00* Test Item Value Reference Range Interpretation Comments STAIN ACCEPTABILITY (test code = STN ACCEPTABLE) STAIN ACCEPTABLE POIKILOCYTOSIS (test code = POIK) 1+ PLATELET ESTIMATE (test code = PLTEST) DECREASED PLATELET MORPHOLOGY (test code = PLTMORPH) NORMAL LACTIC [id number] 12:13:00* Test Item Value Reference Range Interpretation Comments LACTIC ACID (test code = LACT) 3.1 mmol/L 0.4-1.9 HH Results called to [id number] by V.LAB.KA 08/11/19 1212Critical results verified and read back by Nurse? Y BASIC METABOLIC [id number] 12:09:00* Test Item Value Reference Range Interpretation [...] code = CA) 9.8 mg/dL 8.5-10.1 N [id number] 12:09:00* Test Item Value Reference Range Interpretation Comments PHOSPHORUS (test code = PHOS) 1.8 mg/dL 2.5-4.9 L [id number] 12:09:00* Test Item Value Reference Range Interpretation Comments MAGNESIUM (test code = MAG) 1.2 mg/dL 1.8-2.4 L BASIC METABOLIC [id number] 12:01:00* Test Item Value Reference Range Interpretation [...] CALCIUM (test code = CA) mg/dL 8.5-10.1 [id number] 12:01:00* Test Item Value Reference Range Interpretation Comments PHOSPHORUS (test code = PHOS) mg/dL 2.5-4.9 [id number] 12:01:00* Test Item Value Reference Range Interpretation Comments MAGNESIUM (test code = MAG) mg/dL 1.8-2.4 CBC W/AUTO [id number] 11:59:00* Test Item Value Reference Range Interpretation [...] 37 K/mm3 150-450 LL Results called to [id number] by VAlcanzar SolarLAB.HD1 08/11/19 1158Critical results verified and read back [...] = MDIFF) NO, ONLY SCAN NEEDED DIFFERENTIAL [id number] 11:59:00* Test Item Value Reference Range Interpretation Comments STAIN ACCEPTABILITY (test code = STN ACCEPTABLE) CABOT RINGS (test code = CAB) MORPHOLOGY COMMENT (test code = MOC) PLATELET ESTIMATE (test code = PLTEST) PLATELET MORPHOLOGY (test code = PLTMORPH) CBC W/AUTO [id number] 11:59:00* Test Item Value Reference Range Interpretation [...] 37 K/mm3 150-450 LL Results called to [id number] by retickrLAB.HD1 08/11/19 1158Critical results verified and read back [...] = MDIFF) NO, ONLY SCAN NEEDED DIFFERENTIAL [id number] 11:59:00* Test Item Value Reference Range Interpretation Comments STAIN ACCEPTABILITY (test code = STN ACCEPTABLE) CABOT RINGS (test code = CAB) MORPHOLOGY COMMENT (test code = MOC) PLATELET ESTIMATE (test code = PLTEST) PLATELET MORPHOLOGY (test code = PLTMORPH) CBC W/AUTO [id number] 11:59:00* Test Item Value Reference Range Interpretation [...] 37 K/mm3 150-450 LL Results called to [id number] by V.LAB.HD1 08/11/19 1158Critical results verified and [...] = MDIFF) NO, ONLY SCAN NEEDED DIFFERENTIAL [id number] 11:59:00* Test Item Value Reference Range Interpretation Comments STAIN ACCEPTABILITY (test code = STN ACCEPTABLE) MORPHOLOGY COMMENT (test code = MOC) PLATELET ESTIMATE (test code = PLTEST) PLATELET MORPHOLOGY (test code = PLTMORPH) CBC W/AUTO [id number] 11:59:00* Test Item Value Reference Range Interpretation [...] 37 K/mm3 150-450 LL Results called to [id number] by retickrLAB.HD1 08/11/19 1158Critical results verified and read back [...] = MDIFF) NO, ONLY SCAN NEEDED DIFFERENTIAL [id number] 11:59:00* Test Item Value Reference Range Interpretation Comments STAIN ACCEPTABILITY (test code = STN ACCEPTABLE) CABOT RINGS (test code = CAB) MORPHOLOGY COMMENT (test code = MOC) PLATELET ESTIMATE (test code = PLTEST) PLATELET MORPHOLOGY (test code = PLTMORPH) [id number] 11:49:00* Test Item Value Reference Range Interpretation Comments GLUBED (test code = GLUBED) 187 mg/dL 74-106 H Performed by certified collar shaper operator at [facility] [id number] 09:25:00* Test Item Value Reference Range Interpretation Comments GLUBED (test code = GLUBED) 214 mg/dL 74-106 H Performed by certified collar shaper operator at [facility] CBC W/AUTO [id number] 08:44:00* Test Item Value Reference Range Interpretation [...] 35 K/mm3 150-450 LL Results called to [id number] by AUDREY 08/11/19 0713Critical results verified and [...] = MDIFF) NO, ONLY SCAN NEEDED DIFFERENTIAL [id number] 08:44:00* Test Item Value Reference Range Interpretation Comments STAIN ACCEPTABILITY (test code = STN ACCEPTABLE) STAIN ACCEPTABLE POIKILOCYTOSIS (test code = POIK) 1+ PLATELET ESTIMATE (test code = PLTEST) DECREASED PLATELET MORPHOLOGY (test code = PLTMORPH) NORMAL - CT HEAD/BRAIN W/O [id number] 08:26:00 Name: MOJGAN CUMMINGS [facility] : 1950 Age/S: 69 / F [address] [facility] Unit #: [id number] Loc: [place] [address] Phys: Sam Carrillo MD Acct: [id number] Dis Date: 08/19/2019 Status: DIS IN PHONE #: [phone] Exam Date: 08/11/2019 0740 FAX #: [phone] Reason: CONFUSION EXAMS: CPT CODE: [id number] CT HEAD/BRAIN W/O CONT 02680 EXAM: CT of the head without contrast; [...] RT(R)(CT) CTDI: DLP: Trnscb Date/Time: 08/11/2019 (825) JenniferW Orig Print D/T: S: 08/11/2019 (828) PAGE 1 Signed Report - CT HEAD/BRAIN W/O [id number] 08:26:00 Name: MOJGAN CUMMINGS [facility] : 1950 Age/S: 69 / F [address] Unit #: [id number] Loc: [place] [address] Phys: Sam Carrillo MD Acct: [id number] Di s Date: Status: ADM IN PHONE #: Exam Date: 08/11/2019 0740 FAX #: Reason: CONFUSION EXAMS: CPT CODE: [id number] CT HEAD/BRAIN W/O CONT 96340 EXAM: CT of the head with out [...] 1 Signed Report - CT HEAD/BRAIN W/O [id number] 08:26:00 Name: MOJGAN CUMMINGS [facility] : 1950 Age/S: 69 / F [address] Unit #: [id number] Loc: [place] [address] Phys: Sam Carrillo MD Acct: [id number] Di s Date: 08/19/2019 Status: DIS IN PHONE #: Exam Date: 08/11/2019 0740 FAX #: Reason: CONFUSION EXAMS: CPT CODE: [id number] CT HEAD/BRAIN W/O CONT 08459 EXAM: CT of the head with out [...] RT(R)(CT) CTDI: DLP: Trnscb Date/Time: 08/11/2019 (825) [email or web address] Orig Print D/T: S: 08/11/2019 (828) PAGE 1 Signed Report B-TYPE NATRIURETIC [id number] 08:00:00* Test Item Value Reference Range Interpretation Comments B-TYPE NATRIURETIC PEPTIDE (test code = BNP) 86.81 pgram/mL 0-100 N URINALYSIS [id number] 07:55:00* Test Item Value Reference Range Interpretation [...] Urine Source? Clean CatchDRUGS OF ABUSE SCREEN [id number] 07:55:00* Test Item Value Reference Range Interpretation [...] NEGATIVE <300 ng/mL Urine Source? Clean CatchPROTHROMBIN [id number] 07:28:00* Test Item Value Reference Range Interpretation [...] (2.5-3.5) IS PATIENT ON ANTICOAGULANTS? NTHROMBOPLASTIN TIME [id number] 07:28:00* Test Item Value Reference Range Interpretation Comments THROMBOPLASTIN TIME PARTIAL (test code = PTT) 31.3 seconds 25.0-36. 5 N IS PATIENT ON ANTICOAGULANTS? NLACTIC [id number] 07:28:00* Test Item Value Reference Range Interpretation Comments LACTIC ACID (test code = LACT) 6.5 mmol/L 0.4-1.9 HH Results called to DR.AGBABIAKAby DOWLING 08/11/19 0728Critical results verified and read back by Nurse? Y URINALYSIS [id number] 07:23:00* Test Item Value Reference Range Interpretation [...] Urine Source? Clean CatchDRUGS OF ABUSE SCREEN [id number] 07:23:00* Test Item Value Reference Range Interpretation [...] [place]) <300 ng/mL Urine Source? Clean CatchURINALYSIS [id number] 07:21:00* Test Item Value Reference Range Interpretation [...] Urine Source? Clean CatchDRUGS OF ABUSE SCREEN [id number] 07:21:00* Test Item Value Reference Range Interpretation [...] <300 ng/mL Urine Source? Clean CatchBASIC METABOLIC [id number] 07:19:00* Test Item Value Reference Range Interpretation [...] CA) 9.3 mg/dL 8.5-10.1 N HEPATIC FUNCTION [id number] 07:19:00* Test Item Value Reference Range Interpretation [...] code = CK) 150 IUnit/L 26-208 N [id number] 07:19:00* Test Item Value Reference Range Interpretation Comments LIPASE (test code = LIP) 12 U/L 73.0-393.0 L [id number] 07:19:00* Test Item Value Reference Range Interpretation Comments MAGNESIUM (test code = MAG) 1.7 mg/dL 1.8-2.4 L [id number] 07:19:00* Test Item Value Reference Range Interpretation Comments TROPONIN-I (test code = TROPI) <0.015 ng/mL 0-0.045 N [id number] 07:19:00* Test Item Value Reference Range Interpretation Comments ACETAMINOPHEN (test code = ACET) < 10 mcg/mL 10-30 L A RANGE OF 10-30 mcg/mL IS A THERAPEUTIC RANGE. TOXIC CONCENTRATIONS: >150 mcg/mL AT 4 HOURS AFTER INGESTION >= 50 mcg/mL AT 12 HOURS AFTER INGESTION [id number] 07:19:00* Test Item Value Reference Range Interpretation Comments SALICYLATE (test code = DANNA) < 1.7 mg/dL 2.8-20.0 L [id number] 07:19:00* Test Item Value Reference Range Interpretation Comments ALCOHOL (test code = ALC) < 3 mg/dL 0.0-3.0 N -- INTERPRETIVE DATA NOTE: POSITIVE SCREENING RESULTS SHOULD BE CONSIDERED PRESUMPTIVE.WHEN COLLECTED FOR MEDICAL PURPOSES ONLY. SPECIMEN WILL NOTBE COLLECTED BY CHAIN OF CUSTODY.IF A CONFIRMATION OF POSITIVE RESULTS IS DESIRED, ACONFIRMATION TEST MUST BE REQUESTED BY THE PHYSICIAN AT ANADDITIONAL CHARGE TO THE PATIENT. [id number] 07:15:00* Test Item Value Reference Range Interpretation Comments AMMONIA (test code = AMM) 29 umol/L 11-32 N CBC W/AUTO [id number] 07:13:00* Test Item Value Reference Range Interpretation [...] 35 K/mm3 150-450 LL Results called to [id number] by AUDREY 08/11/19 0713Critical results verified and [...] = MDIFF) NO, ONLY SCAN NEEDED DIFFERENTIAL [id number] 07:13:00* Test Item Value Reference Range Interpretation Comments STAIN ACCEPTABILITY (test code = STN ACCEPTABLE) CABOT RINGS (test code = CAB) MORPHOLOGY COMMENT (test code = MOC) PLATELET ESTIMATE (test code = PLTEST) PLATELET MORPHOLOGY (test code = PLTMORPH) CBC W/AUTO [id number] 07:13:00* Test Item Value Reference Range Interpretation [...] 35 K/mm3 150-450 LL Results called to [id number] by V.LAB.AUBREE 08/11/19 0713Critical results verified and [...] = MDIFF) NO, ONLY SCAN NEEDED DIFFERENTIAL [id number] 07:13:00* Test Item Value Reference Range Interpretation Comments STAIN ACCEPTABILITY (test code = STN ACCEPTABLE) CABOT RINGS (test code = CAB) MORPHOLOGY COMMENT (test code = MOC) PLATELET ESTIMATE (test code = PLTEST) PLATELET MORPHOLOGY (test code = PLTMORPH) CBC W/AUTO [id number] 07:13:00* Test Item Value Reference Range Interpretation [...] 35 K/mm3 150-450 LL Results called to [id number] by AUDREY 08/11/19 0713Critical results verified and [...] = MDIFF) NO, ONLY SCAN NEEDED DIFFERENTIAL [id number] 07:13:00* Test Item Value Reference Range Interpretation Comments STAIN ACCEPTABILITY (test code = STN ACCEPTABLE) MORPHOLOGY COMMENT (test code = MOC) PLATELET ESTIMATE (test code = PLTEST) PLATELET MORPHOLOGY (test code = PLTMORPH) CBC W/AUTO [id number] 07:13:00* Test Item Value Reference Range Interpretation [...] 35 K/mm3 150-450 LL Results called to [id number] by AUDREY 08/11/19 0713Critical results verified and [...] = MDIFF) NO, ONLY SCAN NEEDED DIFFERENTIAL [id number] 07:13:00* Test Item Value Reference Range Interpretation Comments STAIN ACCEPTABILITY (test code = STN ACCEPTABLE) CABOT RINGS (test code = CAB) MORPHOLOGY COMMENT (test code = MOC) PLATELET ESTIMATE (test code = PLTEST) PLATELET MORPHOLOGY (test code = PLTMORPH) BASIC METABOLIC [id number] 07:12:00* Test Item Value Reference Range Interpretation [...] code = CA) mg/dL 8.5-10.1 HEPATIC FUNCTION [id number] 07:12:00* Test Item Value Reference Range Interpretation [...] (CK) (test code = CK) IUnit/L 26-208 [id number] 07:12:00* Test Item Value Reference Range Interpretation Comments LIPASE (test code = LIP) U/L 73.0-393.0 [id number] 07:12:00* Test Item Value Reference Range Interpretation Comments MAGNESIUM (test code = MAG) mg/dL 1.8-2.4 [id number] 07:12:00* Test Item Value Reference Range Interpretation Comments TROPONIN-I (test code = TROPI) ng/mL 0-0.045 [id number] 07:12:00* Test Item Value Reference Range Interpretation Comments ACETAMINOPHEN (test code = ACET) mcg/mL 10-30 [id number] 07:12:00* Test Item Value Reference Range Interpretation Comments SALICYLATE (test code = DANNA) mg/dL 2.8-20.0 [id number] 07:12:00* Test Item Value Reference Range Interpretation Comments ALCOHOL (test code = ALC) mg/dL 0-3 - XR CHEST 1 [id number] 06:57:00 FAX: Sam Rosado [phone] [place]: St: DIS Name: MOJGAN SAUCEDO [facility] : [birth year] Age/S: 69/F [address] Unit #: [id number] Loc: V.2079 [place] [address] Phys: Sam Carrillo MD Acct: [id number] Dis Date: [id number] Status: DIS IN PHONE #: [phone] Exam Date: 08/11/2019630 FAX #: [phone] Reason: SHORTNESS OF BREATH EXAMS: CPT CODE: [id number] XR CHEST 1 V 90159 EXAM: - XR CHEST 1 V HISTORY: [...] No consolidation or effusion. * * at 0612 Reported and signed by: Mahendra Amos MD CC: aSm Yancey MD Technologist: Wicho Herring RT(R) Trnscrd Date/Time/By: 08/11/2019 (065 7) : By: [email or web address] Orig Print D/T: S: 08/11/2019 (3660) PAGE 1 Signed Report - XR CHEST 1 [id number] 06:57:00 FAX: Sam Rosado [phone] [place]: St: REG Name: Calixto CHRISSYMOJGAN MOLINA [facility] : [birth year] Age/S: 69/F [address] [facility] Unit #: [id number] Loc: [place] [address] Phys: Sam Carrillo MD Acct: [id number] Dis Date: Status: REG ER PHONE #: [phone] Exam Date: 08/11/2019630 FAX #: [phone] Reason: SHORTNESS OF BREATH EXAMS: CPT CODE: [id number] XR CHEST 1 V 15927 EXAM: - XR CHEST 1 V HISTORY: [...] By: [email or web address] Orig Print D/T: S: 08/11/2019 (4483) PAGE 1 Signed Report - XR CHEST 1 [id number] 06:57:00 FAX: Sam Rosado [phone] [place]: St: DIS Name: MOJGAN SAUCEDO [facility] : [birth year] Age/S: 69/F [address] [facility] Unit #: [id number] Loc: V.2078 [place] [address] Phys: Sam Carrillo MD Acct: [id number] Dis Date: [id number] Status: DIS IN PHONE #: [phone] Exam Date: 08/11/2019 06 FAX #: [phone] Reason: SHORTNESS OF BREATH EXAMS: CPT CODE: [id number] XR CHEST 1 V 40508 EXAM: - XR CHEST 1 V HISTORY: [...] By: [email or web address] Orig Print D/T: S: 08/11/2019 (4408) PAGE 1 Signed Report [id number] 06:37:00* Test Item Value Reference Range Interpretation Comments GLUBED (test code = GLUBED) 193 mg/dL 74-106 H Performed by certified collar shaper operator at [facility] CBC W/AUTO [id number] 11:41:00* Test Item Value Reference Range Interpretation [...] 44 K/mm3 150-450 LL Results called to [id number] by V.LAB.[facility] 08/06/19 1010Critical results verified and read [...] = MDIFF) NO, ONLY SCAN NEEDED DIFFERENTIAL [id number] 11:41:00* Test Item Value Reference Range Interpretation Comments STAIN ACCEPTABILITY (test code = STN ACCEPTABLE) STAIN ACCEPTABLE PLATELET ESTIMATE (test code = PLTEST) DECREASED PLATELET MORPHOLOGY (test code = PLTMORPH) NORMAL CBC W/AUTO [id number] 10:11:00* Test Item Value Reference Range Interpretation [...] 44 K/mm3 150-450 LL Results called to [id number] by [facility] 08/06/19 1010Critical results verified and read [...] = MDIFF) NO, ONLY SCAN NEEDED DIFFERENTIAL [id number] 10:11:00* Test Item Value Reference Range Interpretation Comments STAIN ACCEPTABILITY (test code = STN ACCEPTABLE) CABOT RINGS (test code = CAB) MORPHOLOGY COMMENT (test code = MOC) PLATELET ESTIMATE (test code = PLTEST) PLATELET MORPHOLOGY (test code = PLTMORPH) CBC W/AUTO [id number] 10:11:00* Test Item Value Reference Range Interpretation [...] 44 K/mm3 150-450 LL Results called to [id number] by V.LAB.[facility] 08/06/19 1010Critical results verified and read [...] = MDIFF) NO, ONLY SCAN NEEDED DIFFERENTIAL [id number] 10:11:00* Test Item Value Reference Range Interpretation Comments STAIN ACCEPTABILITY (test code = STN ACCEPTABLE) MORPHOLOGY COMMENT (test code = MOC) PLATELET ESTIMATE (test code = PLTEST) PLATELET MORPHOLOGY (test code = PLTMORPH) CBC W/AUTO [id number] 10:11:00* Test Item Value Reference Range Interpretation [...] 44 K/mm3 150-450 LL Results called to [id number] by FERNANDO 08/06/19 1010Critical results verified and read back [...] = MDIFF) NO, ONLY SCAN NEEDED DIFFERENTIAL [id number] 10:11:00* Test Item Value Reference Range Interpretation Comments STAIN ACCEPTABILITY (test code = STN ACCEPTABLE) MORPHOLOGY COMMENT (test code = MOC) PLATELET ESTIMATE (test code = PLTEST) PLATELET MORPHOLOGY (test code = PLTMORPH) CBC W/AUTO [id number] 10:11:00* Test Item Value Reference Range Interpretation [...] 44 K/mm3 150-450 LL Results called to [id number] by FERNANDO 08/06/19 1010Critical results verified and read back [...] = MDIFF) NO, ONLY SCAN NEEDED DIFFERENTIAL [id number] 10:11:00* Test Item Value Reference Range Interpretation Comments STAIN ACCEPTABILITY (test code = STN ACCEPTABLE) CABOT RINGS (test code = CAB) MORPHOLOGY COMMENT (test code = MOC) PLATELET ESTIMATE (test code = PLTEST) PLATELET MORPHOLOGY (test code = PLTMORPH) CBC W/AUTO [id number] 06:58:00* Test Item Value Reference Range Interpretation [...] 39 K/mm3 150-450 LL Results called to [id number] by V.LAB.AG1 08/04/19 0633Critical results verified and [...] = MDIFF) NO, ONLY SCAN NEEDED DIFFERENTIAL [id number] 06:58:00* Test Item Value Reference Range Interpretation Comments STAIN ACCEPTABILITY (test code = STN ACCEPTABLE) STAIN ACCEPTABLE PLATELET ESTIMATE (test code = PLTEST) DECREASED PLATELET MORPHOLOGY (test code = PLTMORPH) NORMAL CBC W/AUTO [id number] 06:34:00* Test Item Value Reference Range Interpretation [...] 39 K/mm3 150-450 LL Results called to [id number] by V.LAB.AG1 08/04/19 0633Critical results verified and [...] = MDIFF) NO, ONLY SCAN NEEDED DIFFERENTIAL [id number] 06:34:00* Test Item Value Reference Range Interpretation Comments STAIN ACCEPTABILITY (test code = STN ACCEPTABLE) CABOT RINGS (test code = CAB) MORPHOLOGY COMMENT (test code = MOC) PLATELET ESTIMATE (test code = PLTEST) PLATELET MORPHOLOGY (test code = PLTMORPH) CBC W/AUTO [id number] 06:34:00* Test Item Value Reference Range Interpretation [...] 39 K/mm3 150-450 LL Results called to [id number] by DELMA.AG1 08/04/19 0633Critical results verified and [...] = MDIFF) NO, ONLY SCAN NEEDED DIFFERENTIAL [id number] 06:34:00* Test Item Value Reference Range Interpretation Comments STAIN ACCEPTABILITY (test code = STN ACCEPTABLE) CABOT RINGS (test code = CAB) MORPHOLOGY COMMENT (test code = MOC) PLATELET ESTIMATE (test code = PLTEST) PLATELET MORPHOLOGY (test code = PLTMORPH) CBC W/AUTO [id number] 06:34:00* Test Item Value Reference Range Interpretation [...] 39 K/mm3 150-450 LL Results called to [id number] by retickrLAB.AG1 08/04/19 0633Critical results verified and read back [...] = MDIFF) NO, ONLY SCAN NEEDED DIFFERENTIAL [id number] 06:34:00* Test Item Value Reference Range Interpretation Comments STAIN ACCEPTABILITY (test code = STN ACCEPTABLE) MORPHOLOGY COMMENT (test code = MOC) PLATELET ESTIMATE (test code = PLTEST) PLATELET MORPHOLOGY (test code = PLTMORPH) CBC W/AUTO [id number] 06:34:00* Test Item Value Reference Range Interpretation [...] 39 K/mm3 150-450 LL Results called to [id number] by DELMA.AG1 08/04/19 0633Critical results verified and [...] = MDIFF) NO, ONLY SCAN NEEDED DIFFERENTIAL [id number] 06:34:00* Test Item Value Reference Range Interpretation Comments STAIN ACCEPTABILITY (test code = STN ACCEPTABLE) CABOT RINGS (test code = CAB) MORPHOLOGY COMMENT (test code = MOC) PLATELET ESTIMATE (test code = PLTEST) PLATELET MORPHOLOGY (test code = PLTMORPH) BASIC METABOLIC [id number] 06:33:00* Test Item Value Reference Range Interpretation [...] CA) 9.9 mg/dL 8.5-10.1 N BASIC METABOLIC [id number] 06:27:00* Test Item Value Reference Range Interpretation [...] code = CA) mg/dL 8.5-10.1 CBC W/AUTO [id number] 10:37:00* Test Item Value Reference Range Interpretation [...] 35 K/mm3 150-450 LL Results called to [id number] by AUDREY 08/02/19 0813Critical results verified and [...] = MDIFF) NO, ONLY SCAN NEEDED DIFFERENTIAL [id number] 10:37:00* Test Item Value Reference Range Interpretation Comments STAIN ACCEPTABILITY (test code = STN ACCEPTABLE) STAIN ACCEPTABLE POIKILOCYTOSIS (test code = POIK) 1+ ANISOCYTOSIS (test code = ANISO) 1+ PLATELET ESTIMATE (test code = PLTEST) DECREASED PLATELET MORPHOLOGY (test code = PLTMORPH) NORMAL BASIC METABOLIC [id number] 08:17:00* Test Item Value Reference Range Interpretation [...] code = CA) 9.6 mg/dL 8.5-10.1 N [id number] 08:17:00* Test Item Value Reference Range Interpretation Comments PHOSPHORUS (test code = PHOS) 2.4 mg/dL 2.5-4.9 L [id number] 08:17:00* Test Item Value Reference Range Interpretation Comments MAGNESIUM (test code = MAG) 1.5 mg/dL 1.8-2.4 L CALCIUM [id number] 08:17:00* Test Item Value Reference Range Interpretation Comments CALCIUM IONIZED (test code = ERICH) 1.34 mmol/L 1.12-1.32 H CBC W/AUTO [id number] 08:14:00* Test Item Value Reference Range Interpretation [...] 35 K/mm3 150-450 LL Results called to [id number] by V.LAB.AUBREE 08/02/19 0813Critical results verified and [...] = MDIFF) NO, ONLY SCAN NEEDED DIFFERENTIAL [id number] 08:14:00* Test Item Value Reference Range Interpretation Comments STAIN ACCEPTABILITY (test code = STN ACCEPTABLE) MORPHOLOGY COMMENT (test code = MOC) PLATELET ESTIMATE (test code = PLTEST) PLATELET MORPHOLOGY (test code = PLTMORPH) CBC W/AUTO [id number] 08:13:00* Test Item Value Reference Range Interpretation [...] 35 K/mm3 150-450 LL Results called to [id number] by [email or web address] 08/02/19 0813Critical results verified and [...] = MDIFF) NO, ONLY SCAN NEEDED DIFFERENTIAL [id number] 08:13:00* Test Item Value Reference Range Interpretation Comments STAIN ACCEPTABILITY (test code = STN ACCEPTABLE) CABOT RINGS (test code = CAB) MORPHOLOGY COMMENT (test code = MOC) PLATELET ESTIMATE (test code = PLTEST) PLATELET MORPHOLOGY (test code = PLTMORPH) CBC W/AUTO [id number] 08:13:00* Test Item Value Reference Range Interpretation [...] 35 K/mm3 150-450 LL Results called to [id number] by AUDREY 08/02/19 0813Critical results verified and [...] = MDIFF) NO, ONLY SCAN NEEDED DIFFERENTIAL [id number] 08:13:00* Test Item Value Reference Range Interpretation Comments STAIN ACCEPTABILITY (test code = STN ACCEPTABLE) MORPHOLOGY COMMENT (test code = MOC) PLATELET ESTIMATE (test code = PLTEST) PLATELET MORPHOLOGY (test code = PLTMORPH) CBC W/AUTO [id number] 08:13:00* Test Item Value Reference Range Interpretation [...] 35 K/mm3 150-450 LL Results called to [id number] by VFayeLAB.AUBREE 08/02/19 0813Critical results verified and read back [...] = MDIFF) NO, ONLY SCAN NEEDED DIFFERENTIAL [id number] 08:13:00* Test Item Value Reference Range Interpretation Comments STAIN ACCEPTABILITY (test code = STN ACCEPTABLE) CABOT RINGS (test code = CAB) MORPHOLOGY COMMENT (test code = MOC) PLATELET ESTIMATE (test code = PLTEST) PLATELET MORPHOLOGY (test code = PLTMORPH) BASIC METABOLIC [id number] 08:11:00* Test Item Value Reference Range Interpretation [...] CALCIUM (test code = CA) mg/dL 8.5-10.1 [id number] 08:11:00* Test Item Value Reference Range Interpretation Comments PHOSPHORUS (test code = PHOS) mg/dL 2.5-4.9 [id number] 08:11:00* Test Item Value Reference Range Interpretation Comments MAGNESIUM (test code = MAG) mg/dL 1.8-2.4 CALCIUM [id number] 08:11:00* Test Item Value Reference Range Interpretation Comments CALCIUM IONIZED (test code = ERICH) 1.34 mmol/L 1.12-1.32 H BASIC METABOLIC [id number] 08:09:00* Test Item Value Reference Range Interpretation [...] CALCIUM (test code = CA) mg/dL 8.5-10.1 [id number] 08:09:00* Test Item Value Reference Range Interpretation Comments PHOSPHORUS (test code = PHOS) mg/dL 2.5-4.9 [id number] 08:09:00* Test Item Value Reference Range Interpretation Comments MAGNESIUM (test code = MAG) mg/dL 1.8-2.4 CALCIUM [id number] 08:09:00* Test Item Value Reference Range Interpretation Comments CALCIUM IONIZED (test code = ERICH) mmol/L 1.12-1.32 - XR CHEST 1 [id number] 08:02:00 FAX: Justin Doran [place]: B St: ADM FAX: Ilan Holt MD Name: MARCELA CUMMINGS [facility] : 1950 Age/S: 69/F [address] Unit #: [id number] Loc: V.2080 [place] [address] Phys: Justin Doran Acct: [id number] Dis Date: Status: ADM IN PHONE #: [phone] Exam Date: 08/02/2019754 FAX #: [phone] Reason: Respiratory Failure EXAMS: CPT CODE: [id number] XR CHEST 1 V 26668 CLINICAL HISTORY: Respiratory Failure TECHNIQUE: AP chest x-ray COMPARISON: Previous day. IMPRESSION: Resolved right basilar subsegmental atelectasis. No airspace consolidation or pleural effusion. Normal heart size. Tracheostomy tube. LOCATION: LP at 0802 Reported and signed by: Lenka Farrar D.O. CC: Justin Doran; Ilan Stein Technologist: RT JUVENTINO(Ivan) Trnscbrigid Date/Time/By: 9 (08) : By: [email or web address] Orig Print D/T: S: 08/02/2019 (0862) PAGE 1 Signed Report - XR CHEST 1 [id number] 08:02:00 FAX: Justin Doran [place]: B St: DIS FAX: Y Ilan Stein MD Name: MOJGAN CUMMINGS [facility] : 1950 Age/S: 69/F [address] [facility] Unit #: [id number] Loc: V.2080 [place] [address] Phys: Justin Doran Acct: [id number] Dis Date: [id number] Status: DIS IN PHONE #: [phone] Exam Date: 08/02/2019754 FAX #: [phone] Reason: Respiratory Failure EXAMS: CPT CODE: [id number] XR CHEST 1 V 66866 CLINICAL HISTORY: Respiratory Failure TECHNIQUE: AP chest x-ray COMPARISON: Previous day. IMPRESSION: Resolved right basilar subsegmental atelectasis. No airspace consolidation or pleural effusion. Normal heart size. Tracheostomy tube. LOCATION: LP at 0802 Reported and signed by: Lenka Farrar D.O. CC: Justin Doran; Ilan Stein Technologist: RT JUVENTINO(Ivan) Trnscrd Date/Time/By: 9 (0802) : By: [email or web address] Orig Print D/T: S: 08/02/2019 (2815) PAGE 1 Signed Report PROTHROMBIN [id number] 15:09:00* Test Item Value Reference Range Interpretation [...] Mechanical prosthetic heart valves (2.5-3.5) THROMBOPLASTIN TIME [id number] 15:09:00* Test Item Value Reference Range Interpretation Comments THROMBOPLASTIN TIME PARTIAL (test code = PTT) 32.1 seconds 25.0-36. 5 N [id number] 15:09:00* Test Item Value Reference Range Interpretation Comments FIBRINOGEN (test code = FIB) 316 mg/dL 200-400 N FIBRIN SPLIT [id number] 15:09:00* Test Item Value Reference Range Interpretation Comments FIBRIN SPLIT PRODUCT (test code = FSP) <5 ug/mL <5 Performed At: [facility] [id number] Santoyo MD Ph:[phone] [id number] 15:09:00* Test Item Value Reference Range Interpretation Comments D-DIMER (test code = DDIMER) 583.00 ng/mLFEU 0-500 HH Results called to [id number] by IVANA 07/30/19 1102Critical results verified and [...] activity levels possibly masking a deficiency.Performed At: [facility] [id number] Santoyo MD Ph:[phone] PROTHROMBIN [id number] 09:10:00* Test Item Value Reference Range Interpretation [...] Mechanical prosthetic heart valves (2.5-3.5) THROMBOPLASTIN TIME [id number] 09:10:00* Test Item Value Reference Range Interpretation Comments THROMBOPLASTIN TIME PARTIAL (test code = PTT) 32.1 seconds 25.0-36. 5 N [id number] 09:10:00* Test Item Value Reference Range Interpretation Comments FIBRINOGEN (test code = FIB) 316 mg/dL 200-400 N FIBRIN SPLIT [id number] 09:10:00* Test Item Value Reference Range Interpretation Comments FIBRIN SPLIT PRODUCT (test code = FSP) mcg/mL <5 [id number] 09:10:00* Test Item Value Reference Range Interpretation Comments D-DIMER (test code = DDIMER) 583.00 ng/mLFEU 0-500 HH Results called to [id number] by V.LAB.WJC 07/30/19 1102Critical results verified and read back [...] activity levels possibly masking a deficiency.Performed At: [facility] [id number] Sanjai MD Ph:[phone] - XR CHEST 1 [id number] 06:36:00 FAX: Justin Doran [place]: St: ADM FAX: Y Ilan Stein MD Name: MARCELA CUMMINGS [facility] : 1950 Age/S: 69/F [address] [facility] Unit #: [id number] Loc: V.1 [place] [address] Phys: Justin Doran Acct: [id number] Dis Date: Status: ADM IN PHONE #: [phone] Exam Date: 08/01/2019 05 FAX #: [phone] Reason: Respiratory Failure EXAMS: CPT CODE: [id number] XR CHEST 1 V 26097 CLINICAL HISTORY: Respiratory Failure TECHNIQUE: AP chest x-ray COMPARISON: Previous day. IMPRESSION: No significant interval change. Mild right basilar subsegmental atelectasis. No pleural effusion. Normal heart size. Tracheostomy tube. LOCATION: at 0636 Reported and signed by: Lenka Farrar D.O. CC: Justin Mullins; Ilan Stein Technologist: OCTAVIO Darling Trnscrd Date/Time/By: 08/01/2019 (0636 ) : By: [email or web address] Orig Print D/T: S: 08/01/2019 (0639) PAGE 1 Signed Report - XR CHEST 1 [id number] 06:36:00 FAX: Justin Doran [place]: B St: DIS FAX: Ilan Holt MD Name: MOJGAN CUMMINGS [facility] : 1950 Age/S: 69/F [address] [facility] Unit #: [id number] Loc: V.2080 [place] [address] Phys: Justin Doran Acct: [id number] Dis Date: [id number] Status: DIS IN PHONE #: [phone] Exam Date: 08/01/2019 0535 FAX #: [phone] Reason: Respiratory Failure EXAMS: CPT CODE: [id number] XR CHEST 1 V 90143 CLINICAL HISTORY: Respiratory Failure TECHNIQUE: AP chest x-ray COMPARISON: Previous day. IMPRESSION: No significant interval change. Mild right basilar subsegmental atelectasis. No pleural effusion. Normal heart size. Tracheostomy tube. LOCATION: at 0636 Reported and signed by: Lenka Farrar D.O. CC: Justin Mullins; Ilan Stein Technologist: OCTAVIO Darling Trnscrd Date/Time/By: 08/01/2019 (0636 ) : By: [email or web address] Orig Print D/T: S: 08/01/2019 (0628) PAGE 1 Signed Report CBC W/AUTO [id number] 05:04:00* Test Item Value Reference Range Interpretation [...] 27 K/mm3 150-450 LL Results called to [id number] by DELMA.AG1 08/01/19 0450Critical results verified and [...] = MDIFF) NO, ONLY SCAN NEEDED DIFFERENTIAL [id number] 05:04:00* Test Item Value Reference Range Interpretation Comments STAIN ACCEPTABILITY (test code = STN ACCEPTABLE) STAIN ACCEPTABLE PLATELET ESTIMATE (test code = PLTEST) DECREASED PLATELET MORPHOLOGY (test code = PLTMORPH) NORMAL BASIC METABOLIC [id number] 05:03:00* Test Item Value Reference Range Interpretation [...] code = CA) 9.2 mg/dL 8.5-10.1 N [id number] 05:03:00* Test Item Value Reference Range Interpretation Comments PHOSPHORUS (test code = PHOS) 2.6 mg/dL 2.5-4.9 N [id number] 05:03:00* Test Item Value Reference Range Interpretation Comments MAGNESIUM (test code = MAG) 2.2 mg/dL 1.8-2.4 N CALCIUM [id number] 05:03:00* Test Item Value Reference Range Interpretation Comments CALCIUM IONIZED (test code = ERICH) 1.36 mmol/L 1.12-1.32 H BASIC METABOLIC [id number] 04:58:00* Test Item Value Reference Range Interpretation [...] code = CA) 9.2 mg/dL 8.5-10.1 N [id number] 04:58:00* Test Item Value Reference Range Interpretation Comments PHOSPHORUS (test code = PHOS) 2.6 mg/dL 2.5-4.9 N [id number] 04:58:00* Test Item Value Reference Range Interpretation Comments MAGNESIUM (test code = MAG) 2.2 mg/dL 1.8-2.4 N CALCIUM [id number] 04:58:00* Test Item Value Reference Range Interpretation Comments CALCIUM IONIZED (test code = ERICH) mmol/L 1.12-1.32 BASIC METABOLIC [id number] 04:53:00* Test Item Value Reference Range Interpretation [...] CALCIUM (test code = CA) mg/dL 8.5-10.1 [id number] 04:53:00* Test Item Value Reference Range Interpretation Comments PHOSPHORUS (test code = PHOS) mg/dL 2.5-4.9 [id number] 04:53:00* Test Item Value Reference Range Interpretation Comments MAGNESIUM (test code = MAG) mg/dL 1.8-2.4 CALCIUM [id number] 04:53:00* Test Item Value Reference Range Interpretation Comments CALCIUM IONIZED (test code = ERICH) mmol/L 1.12-1.32 CBC W/AUTO [id number] 04:50:00* Test Item Value Reference Range Interpretation [...] 27 K/mm3 150-450 LL Results called to [id number] by V.LAB.AG1 08/01/19 0450Critical results verified and [...] = MDIFF) NO, ONLY SCAN NEEDED DIFFERENTIAL [id number] 04:50:00* Test Item Value Reference Range Interpretation Comments STAIN ACCEPTABILITY (test code = STN ACCEPTABLE) CABOT RINGS (test code = CAB) MORPHOLOGY COMMENT (test code = MOC) PLATELET ESTIMATE (test code = PLTEST) PLATELET MORPHOLOGY (test code = PLTMORPH) CBC W/AUTO [id number] 04:50:00* Test Item Value Reference Range Interpretation [...] 27 K/mm3 150-450 LL Results called to [id number] by retickrLAB.AG1 08/01/19 0450Critical results verified and read back [...] = MDIFF) NO, ONLY SCAN NEEDED DIFFERENTIAL [id number] 04:50:00* Test Item Value Reference Range Interpretation Comments STAIN ACCEPTABILITY (test code = STN ACCEPTABLE) CABOT RINGS (test code = CAB) MORPHOLOGY COMMENT (test code = MOC) PLATELET ESTIMATE (test code = PLTEST) PLATELET MORPHOLOGY (test code = PLTMORPH) CBC W/AUTO [id number] 04:50:00* Test Item Value Reference Range Interpretation [...] 27 K/mm3 150-450 LL Results called to [id number] by V.LAB.AG1 08/01/19 0450Critical results verified and [...] = MDIFF) NO, ONLY SCAN NEEDED DIFFERENTIAL [id number] 04:50:00* Test Item Value Reference Range Interpretation Comments STAIN ACCEPTABILITY (test code = STN ACCEPTABLE) MORPHOLOGY COMMENT (test code = MOC) PLATELET ESTIMATE (test code = PLTEST) PLATELET MORPHOLOGY (test code = PLTMORPH) CBC W/AUTO [id number] 04:50:00* Test Item Value Reference Range Interpretation [...] 27 K/mm3 150-450 LL Results called to [id number] by [email or web address] 08/01/19 0450Critical results verified and [...] = MDIFF) NO, ONLY SCAN NEEDED DIFFERENTIAL [id number] 04:50:00* Test Item Value Reference Range Interpretation Comments STAIN ACCEPTABILITY (test code = STN ACCEPTABLE) CABOT RINGS (test code = CAB) MORPHOLOGY COMMENT (test code = MOC) PLATELET ESTIMATE (test code = PLTEST) PLATELET MORPHOLOGY (test code = PLTMORPH) BASIC METABOLIC [id number] 07:59:00* Test Item Value Reference Range Interpretation [...] code = CA) 9.2 mg/dL 8.5-10.1 N [id number] 07:59:00* Test Item Value Reference Range Interpretation Comments PHOSPHORUS (test code = PHOS) 2.4 mg/dL 2.5-4.9 L [id number] 07:59:00* Test Item Value Reference Range Interpretation Comments MAGNESIUM (test code = MAG) 1.4 mg/dL 1.8-2.4 L CALCIUM [id number] 07:59:00* Test Item Value Reference Range Interpretation Comments CALCIUM IONIZED (test code = ERICH) 1.33 mmol/L 1.12-1.32 H BASIC METABOLIC [id number] 06:59:00* Test Item Value Reference Range Interpretation [...] code = CA) 9.2 mg/dL 8.5-10.1 N [id number] 06:59:00* Test Item Value Reference Range Interpretation Comments PHOSPHORUS (test code = PHOS) 2.4 mg/dL 2.5-4.9 L [id number] 06:59:00* Test Item Value Reference Range Interpretation Comments MAGNESIUM (test code = MAG) 1.4 mg/dL 1.8-2.4 L CALCIUM [id number] 06:59:00* Test Item Value Reference Range Interpretation Comments CALCIUM IONIZED (test code = ERICH) mmol/L 1.12-1.32 BASIC METABOLIC [id number] 06:59:00* Test Item Value Reference Range Interpretation [...] code = CA) 9.2 mg/dL 8.5-10.1 N [id number] 06:59:00* Test Item Value Reference Range Interpretation Comments PHOSPHORUS (test code = PHOS) 2.4 mg/dL 2.5-4.9 L [id number] 06:59:00* Test Item Value Reference Range Interpretation Comments MAGNESIUM (test code = MAG) 1.4 mg/dL 1.8-2.4 L CALCIUM [id number] 06:59:00* Test Item Value Reference Range Interpretation Comments CALCIUM IONIZED (test code = ERICH) mmol/L 1.12-1.32 BASIC METABOLIC [id number] 06:58:00* Test Item Value Reference Range Interpretation [...] CALCIUM (test code = CA) mg/dL 8.5-10.1 [id number] 06:58:00* Test Item Value Reference Range Interpretation Comments PHOSPHORUS (test code = PHOS) mg/dL 2.5-4.9 [id number] 06:58:00* Test Item Value Reference Range Interpretation Comments MAGNESIUM (test code = MAG) mg/dL 1.8-2.4 CALCIUM [id number] 06:58:00* Test Item Value Reference Range Interpretation Comments CALCIUM IONIZED (test code = ERICH) mmol/L 1.12-1.32 CBC W/AUTO [id number] 06:52:00* Test Item Value Reference Range Interpretation [...] 26 K/mm3 150-450 LL Results called to [id number] by [email or web address] 07/31/19 0630Critical results verified and [...] = MDIFF) NO, ONLY SCAN NEEDED DIFFERENTIAL [id number] 06:52:00* Test Item Value Reference Range Interpretation Comments STAIN ACCEPTABILITY (test code = STN ACCEPTABLE) STAIN ACCEPTABLE PLATELET ESTIMATE (test code = PLTEST) DECREASED PLATELET MORPHOLOGY (test code = PLTMORPH) NORMAL PROTHROMBIN [id number] 06:33:00* Test Item Value Reference Range Interpretation [...] (2.5-3.5) IS PATIENT ON ANTICOAGULANTS? NTHROMBOPLASTIN TIME [id number] 06:33:00* Test Item Value Reference Range Interpretation Comments THROMBOPLASTIN TIME PARTIAL (test code = PTT) 31.9 seconds 25.0-36. 5 N IS PATIENT ON ANTICOAGULANTS? NCBC W/AUTO [id number] 06:32:00* Test Item Value Reference Range Interpretation [...] 26 K/mm3 150-450 LL Results called to [id number] by [email or web address] 07/31/19 0630Critical results verified and read back [...] = MDIFF) NO, ONLY SCAN NEEDED DIFFERENTIAL [id number] 06:32:00* Test Item Value Reference Range Interpretation Comments STAIN ACCEPTABILITY (test code = STN ACCEPTABLE) CABOT RINGS (test code = CAB) MORPHOLOGY COMMENT (test code = MOC) PLATELET ESTIMATE (test code = PLTEST) PLATELET MORPHOLOGY (test code = PLTMORPH) CBC W/AUTO [id number] 06:32:00* Test Item Value Reference Range Interpretation [...] 26 K/mm3 150-450 LL Results called to [id number] by [email or web address] 07/31/19 0630Critical results verified and [...] = MDIFF) NO, ONLY SCAN NEEDED DIFFERENTIAL [id number] 06:32:00* Test Item Value Reference Range Interpretation Comments STAIN ACCEPTABILITY (test code = STN ACCEPTABLE) CABOT RINGS (test code = CAB) MORPHOLOGY COMMENT (test code = MOC) PLATELET ESTIMATE (test code = PLTEST) PLATELET MORPHOLOGY (test code = PLTMORPH) CBC W/AUTO [id number] 06:32:00* Test Item Value Reference Range Interpretation [...] 26 K/mm3 150-450 LL Results called to [id number] by VAlcanzar SolarLAB.AG1 07/31/19 0630Critical results verified and read back [...] = MDIFF) NO, ONLY SCAN NEEDED DIFFERENTIAL [id number] 06:32:00* Test Item Value Reference Range Interpretation Comments STAIN ACCEPTABILITY (test code = STN ACCEPTABLE) MORPHOLOGY COMMENT (test code = MOC) PLATELET ESTIMATE (test code = PLTEST) PLATELET MORPHOLOGY (test code = PLTMORPH) CBC W/AUTO [id number] 06:32:00* Test Item Value Reference Range Interpretation [...] 26 K/mm3 150-450 LL Results called to [id number] by V.LAB.AG1 07/31/19 0630Critical results verified and [...] = MDIFF) NO, ONLY SCAN NEEDED DIFFERENTIAL [id number] 06:32:00* Test Item Value Reference Range Interpretation Comments STAIN ACCEPTABILITY (test code = STN ACCEPTABLE) CABOT RINGS (test code = CAB) MORPHOLOGY COMMENT (test code = MOC) PLATELET ESTIMATE (test code = PLTEST) PLATELET MORPHOLOGY (test code = PLTMORPH) - XR CHEST 1 [id number] 06:13:00 FAX: Justin Doran [place]: B St: ADM FAX: Ilan Holt MD Name: MARCELA CUMMINGS [facility] : 1950 Age/S: 69/F [address] [facility] #: [id number] Loc: VFaye4 [place] [address] Phys: Justin Doran Acct: [id number] Dis Date: Status: ADM IN PHONE #: [phone] Exam Date: 07/31/2019 0517 FAX #: [phone] Reason: Respiratory Failure EXAMS: CPT CODE: [id number] XR CHEST 1 V 18472 CLINICAL HISTORY: Respiratory Failure TECHNIQUE: AP chest x-ray COMPARISON: Previous day. IMPRESSION: Improved right basilar subsegmental atelectasis. No pleural effusion. Normal heart size. Tracheostomy tube. LOCATION: LP at 0613 Reported and signed by: Lenka Farrar D.O. CC: Justin Doran; Ilan Stein Technologist: OCTAVIO Darling Trnscrd Date/Time/By: 07/31/2019 (06) : By: [email or web address] Orig Print D/T: S: 07/31/2019 (0627) PAGE 1 Signed Report - XR CHEST 1 [id number] 06:13:00 FAX: Justin Doran [place]: B St: DIS FAX: Y Ilan Stein MD Name: MOJGAN CUMMINGS [facility] : 1950 Age/S: 69/F [address] [facility] Unit #: [id number] Loc: V.2081 [place] [address] Phys: Justin Doran Acct: [id number] Dis Date: [id number] Status: DIS IN PHONE #: [phone] Exam Date: 07/31/2019516 FAX #: [phone] Reason: Respiratory Failure EXAMS: CPT CODE: [id number] XR CHEST 1 V 04112 CLINICAL HISTORY: Respiratory Failure TECHNIQUE: AP chest x-ray COMPARISON: Previous day. IMPRESSION: Improved right basilar subsegmental atelectasis. No pleural effusion. Normal heart size. Tracheostomy tube. LOCATION: LP at 0613 Reported and signed by: Lenka Farrar D.O. CC: Justin Doran; Ilan Stein Technologist: OCTAVIO Darling Trnscrd Date/Time/By: 07/31/2019 (0613) : By: [email or web address] Orig Print D/T: S: 07/31/2019 (0627) PAGE 1 Signed Report - RETRO [id number] 14:00:00 Name: MARCELA CUMMINGS [facility] : 1950 Age/S: 69 / F [address] [facility] Unit #: [id number] Loc: [place] [address] Phys: Yobani Prieto MD Acct: [id number] Di s Date: Status: ADM IN PHONE #: Exam Date: 07/30/2019 1212 FAX #: Reason: pyelonephritis EXAMS: CPT CODE: [id number] RETRO LTD 25769 HISTORY: Pyelonephritis. COMPARISON: Abdominal ultrasound from same day. Loca tion: [facility]. Bilateral renal ultrasound: Both kidneys are free [...] M.D. CC: Ilan Stein; Leah Prieto MD Technolo gist: Isa Montoya RT(S), RDMS Trnscb Date/Time: 09/29/2018 (1400) [email or web address] Orig Print D/T: S: 07/30/2019 (1403) Probe: PAGE 1 Signed Rep ort - US RETRO [id number] 14:00:00 Name: MOJGAN CUMMINGS [facility] : 1950 Age/S: 69 / F [address] Unit #: [id number] Loc: [place] [address] Phys: Yobani Prieto MD Acct: [id number] Di s Date: [id number] Status: DIS IN PHONE #: Exam Date: 07/30/2019 1212 FAX #: Reason: pyelonephritis EXAMS: CPT CODE: [id number] US RETRO LTD 02671 HISTORY: Pyelonephritis. COMPARISON: Abdominal ultrasound from same [...] M.D. CC: Ilan Stein; Leah Prieto MD Technolo gist: Isa Montoya RT(S), RDWA Trnnmb Date/Time: 09/29/2018 (1400) [email or web address] Orig Print D/T: S: 07/30/2019 (1403) Probe: PAGE 1 Signed Rep ort [id number] 11:48:00* Test Item Value Reference Range Interpretation Comments PHOSPHORUS (test code = PHOS) 2.5 mg/dL 2.5-4.9 N [id number] 11:48:00* Test Item Value Reference Range Interpretation Comments MAGNESIUM (test code = MAG) 1.7 mg/dL 1.8-2.4 L CALCIUM [id number] 11:48:00* Test Item Value Reference Range Interpretation [...] = FESAT) 26.82 % 13-45 N VITAMIN [id number] 11:33:00* Test Item Value Reference Range Interpretation Comments VITAMIN B12 (test code = VITB12) 394 pg/mL 193-986 N FOLIC [id number] 11:33:00* Test Item Value Reference Range Interpretation Comments FOLIC ACID (test code = FOL) 19.7 ng/mL 3.10-17.50 H [id number] 11:33:00* Test Item Value Reference Range Interpretation Comments FERRITIN (test code = SEBASTIAN) 486 ng/mL 8-388 H - US ABDOMEN [id number] 11:09:00 Name: MARCELA CUMMINGS [facility] : 1950 Age/S: 69 / F [address] [facility] Unit #: [id number] Loc: [place] [address] Phys: Maxime Willis MD Acct: [id number] Dis Date: Status: ADM IN PHONE #: [phone] Exam Date: 07/30/2019905 FAX #: [phone] Reason: abd pain EXAMS: CPT CODE: [id number] US ABDOMEN COMPLETE 26051 HISTORY: Abdominal pain. COMPARISON: None available. Location: [facility]. Note: Study slightly limited due to panic [...] by: Clem Grissom M.D. CC: Ilan Stein; Maxime Willis MD Technologist: Isa Montoya RT(S), RDMS Trnnmb Date/Time: 07/30/2019 (1109) [email or web address] Orig Print D/T: S: 07/30/2019 (1112) Probe: PAGE 1 Signed Report - US ABDOMEN [id number] 11:09:00 Name: MOJGAN CUMMINGS [facility] : 1950 Age/S: 69 / F [address] [facility] Unit #: [id number] Loc: [place] [address] Phys: Maxime Willis MD Acct: [id number] Dis Date: [id number] Status: DIS IN PHONE #: [phone] Exam Date: 07/30/2019 09 FAX #: [phone] Reason: abd pain EXAMS: CPT CODE: [id number] US ABDOMEN COMPLETE 55677 HISTORY: Abdominal pain. COMPARISON: None available. Location: [facility]. Note: Study slightly limited due to panic [...] by: Clem Grissom M.D. CC: Ilan Stein; Maxime Willis MD Technologist: Isa Montoya RT(S), [facility] Trnnmb Date/Time: 07/30/2019 (8331) [email or web address] Orig Print D/T: S: 07/30/2019 (5542) Probe: PAGE 1 Signed Report PROTHROMBIN [id number] 11:07:00* Test Item Value Reference Range Interpretation [...] Mechanical prosthetic heart valves (2.5-3.5) THROMBOPLASTIN TIME [id number] 11:07:00* Test Item Value Reference Range Interpretation Comments THROMBOPLASTIN TIME PARTIAL (test code = PTT) 32.1 seconds 25.0-36. 5 N [id number] 11:07:00* Test Item Value Reference Range Interpretation Comments FIBRINOGEN (test code = FIB) 316 mg/dL 200-400 N FIBRIN SPLIT [id number] 11:07:00* Test Item Value Reference Range Interpretation Comments FIBRIN SPLIT PRODUCT (test code = FSP) mcg/mL <5 [id number] 11:07:00* Test Item Value Reference Range Interpretation Comments D-DIMER (test code = DDIMER) 583.00 ng/mLFEU 0-500 HH Results called to [id number] by IVANA 07/30/19 1102Critical results verified and [...] (ATIII) (test code = AT3) % 75-135 [id number] 10:58:00* Test Item Value Reference Range Interpretation Comments PHOSPHORUS (test code = PHOS) mg/dL 2.5-4.9 [id number] 10:58:00* Test Item Value Reference Range Interpretation Comments MAGNESIUM (test code = MAG) mg/dL 1.8-2.4 CALCIUM [id number] 10:58:00* Test Item Value Reference Range Interpretation Comments CALCIUM IONIZED (test code = ERICH) 1.38 mmol/L 1.12-1.32 H HGB [id number] 10:37:00* Test Item Value Reference Range Interpretation Comments HEMOGLOBIN (test code = HGB) 9.3 gram/dL 11.5-15.5 L RESULT VERIFIED BY REPEAT ANALYSIS HEMATOCRIT (test code = HCT) 30.8 % 36.0-46.0 L - XR CHEST 1 [id number] 07:14:00 FAX: Kian Rogers [phone] [place]: St: [facility] FAX: Ilan Holt MD Name: MARCELA CUMMINGS [facility] : 1950 Age/S: 69/F [address] [facility] Unit #: [id number] Loc: V.S24 [place] [address] Phys: Kian Rogers Acct: [id number] Dis Date: Status: ADM IN PHONE #: [phone] Exam Date: 07/30/2019 06 FAX #: [phone] Reason: updated pulm view. EXAMS: CPT CODE: [id number] XR CHEST 1 V 71354 HISTORY: updated pulm view. TECHNIQUE: AP chest x-ray COMPARISON: 07/28/19 FINDINGS: Developing mild right basilar atelectasis/consolidation. No pleural effusion. Normal heart size. Mediastinal silhouette is unremarkable. Tracheostomy tube. Degenerative changes of the spine and shoulders. IMPRESSION: Developing mild right basilar atelectasis/consolidation. LOCATION: at 0714 Reported and signed by: Lenka Farrar D.O. CC: Kian Rogers; Ilan Stein Technologist: OCTAVIO Darling Trnscrd Date/Time/By: 07/30/2019 (0714) : By: [email or web address] Orig Print D/T: S: 07/30/2019 (9291) PAGE 1 Signed Report - XR CHEST 1 [id number] 07:14:00 FAX: Kian Rogers [phone] [place]: St: DIS FAX: Ilan Holt MD Name: MOJGAN CUMMINGS [facility] : 1950 Age/S: 69/F [address] [facility] Unit #: [id number] Loc: V.2080 [place] [address] Phys: Kian Rogers Acct: [id number] Dis Date: [id number] Status: DIS IN PHONE #: [phone] Exam Date: 07/30/2019 0601 FAX #: [phone] Reason: updated pulm view. EXAMS: CPT CODE: [id number] XR CHEST 1 V 79928 HISTORY: updated pulm view. TECHNIQUE: AP chest [...] By: [email or web address] Orig Print D/T: S: 07/30/2019 (0729) PAGE 1 Signed Report CBC W/MANUAL DIFF [...] PLT) 34 K/mm3 150-450 LL Results called [id number] by [facility] 07/30/19 0406Critical results verified and read [...] = IMMAT) 0 % 0-0 N T3 [id number] 06:07:00* Test Item Value Reference Range Interpretation Comments T3 FREE (test code = T3F) 1.9 pg/mL 2.0-4.4 L Pe rformed At: [facility] [address] [id number] Rashawn Swenson MD Ph:[phone] B-TYPE NATRIURETIC [id number] 06:07:00* Test Item Value Reference Range Interpretation Comments B-TYPE NATRIURETIC PEPTIDE (test code = BNP) 51.07 pgram/mL 0-100 N COMPREHENSIVE METABOLIC [id number] 06:07:00* Test Item Value Reference Range Interpretation [...] reference range due to change in reagent. [id number] 06:07:00* Test Item Value Reference Range Interpretation Comments PHOSPHORUS (test code = PHOS) 2.6 mg/dL 2.5-4.9 N [id number] 06:07:00* Test Item Value Reference Range Interpretation Comments LIPASE (test code = LIP) 23 U/L 73.0-393.0 L [id number] 06:07:00* Test Item Value Reference Range Interpretation Comments MAGNESIUM (test code = MAG) 1.3 mg/dL 1.8-2.4 L SERUM [id number] 06:07:00* Test Item Value Reference Range Interpretation Comments SERUM IRON (test code = IRON) 63 ug/dL 50-175 N TOTAL IRON BINDING [id number] 06:07:00* Test Item Value Reference Range Interpretation Comments TOTAL IRON BINDING CAPACITY (test code = TIBC) 176 mcg/dL 250-450 L THYROID PROFILE [id number] 06:07:00* Test Item Value Reference Range Interpretation [...] mIU/mL HYPER : < 0.35 mIU/mL TOTAL [id number] 06:07:00* Test Item Value Reference Range Interpretation Comments TOTAL T3 (test code = T3) 74 ng/dL 71-180 Pe rformed At: [facility] [address] [id number] Rashawn Swenson MD Ph:[phone] T4 [id number] 06:07:00* Test Item Value Reference Range Interpretation Comments T4 FREE (test code = T4F) 0.85 ng/dL 0.76-1.46 N [id number] 06:07:00* Test Item Value Reference Range Interpretation Comments TROPONIN-I (test code = TROPI) <0.015 ng/mL 0-0.045 N CALCIUM [id number] 06:07:00* Test Item Value Reference Range Interpretation Comments CALCIUM IONIZED (test code = ERICH) 1.44 mmol/L 1.12-1.32 H BASIC METABOLIC [id number] 05:39:00* Test Item Value Reference Range Interpretation [...] CA) 8.1 mg/dL 8.5-10.1 L CBC W/MANUAL [id number] 04:07:00* Test Item Value Reference Range Interpretation [...] PLT) 34 K/mm3 150-450 LL Results called [id number] by ANJALI 07/30/19 0406Critical results verified and [...] MORPHOLOGY (test code = PLTMORPH) CBC W/MANUAL [id number] 04:07:00* Test Item Value Reference Range Interpretation [...] PLT) 34 K/mm3 150-450 LL Results called [id number] by ANJALI 07/30/19 0406Critical results verified and [...] MORPHOLOGY (test code = PLTMORPH) CBC W/MANUAL [id number] 04:07:00* Test Item Value Reference Range Interpretation [...] PLT) 34 K/mm3 150-450 LL Results called [id number] by FERNANDO 07/30/19 0406Critical results verified and read back [...] MORPHOLOGY (test code = PLTMORPH) CBC W/MANUAL [id number] 04:07:00* Test Item Value Reference Range Interpretation [...] PLT) 34 K/mm3 150-450 LL Results called [id number] by V.LAB.[facility] 07/30/19 0406Critical results verified and read [...] MORPHOLOGY (test code = PLTMORPH) CBC W/MANUAL [id number] 04:07:00* Test Item Value Reference Range Interpretation [...] PLT) 34 K/mm3 150-450 LL Results called [id number] by FERNANDO 07/30/19 0406Critical results verified and read back [...] PLTEST) PLATELET MORPHOLOGY (test code = PLTMORPH) [id number] 14:27:00* Test Item Value Reference Range Interpretation Comments PHOSPHORUS (test code = PHOS) 2.4 mg/dL 2.5-4.9 L [id number] 14:27:00* Test Item Value Reference Range Interpretation Comments MAGNESIUM (test code = MAG) 1.2 mg/dL 1.8-2.4 L CALCIUM [id number] 14:27:00* Test Item Value Reference Range Interpretation Comments CALCIUM IONIZED (test code = ERICH) 1.35 mmol/L 1.12-1.32 H BASIC METABOLIC [id number] 14:22:00* Test Item Value Reference Range Interpretation [...] code = CA) 8.8 mg/dL 8.5-10.1 N [id number] 14:22:00* Test Item Value Reference Range Interpretation Comments PHOSPHORUS (test code = PHOS) 2.4 mg/dL 2.5-4.9 L [id number] 14:22:00* Test Item Value Reference Range Interpretation Comments MAGNESIUM (test code = MAG) 1.2 mg/dL 1.8-2.4 L CALCIUM [id number] 14:22:00* Test Item Value Reference Range Interpretation Comments CALCIUM IONIZED (test code = ERICH) mmol/L 1.12-1.32 BASIC METABOLIC [id number] 14:19:00* Test Item Value Reference Range Interpretation [...] CALCIUM (test code = CA) mg/dL 8.5-10.1 [id number] 14:19:00* Test Item Value Reference Range Interpretation Comments PHOSPHORUS (test code = PHOS) mg/dL 2.5-4.9 [id number] 14:19:00* Test Item Value Reference Range Interpretation Comments MAGNESIUM (test code = MAG) 1.2 mg/dL 1.8-2.4 L CALCIUM [id number] 14:19:00* Test Item Value Reference Range Interpretation Comments CALCIUM IONIZED (test code = ERICH) mmol/L 1.12-1.32 CBC W/AUTO [id number] 07:13:00* Test Item Value Reference Range Interpretation [...] PLT) 27 K/mm3 150-450 LL Results called [id number] by [facility] 07/29/19 0711Critical results verified and read [...] = MDIFF) NO, ONLY SCAN NEEDED DIFFERENTIAL [id number] 07:13:00* Test Item Value Reference Range Interpretation Comments STAIN ACCEPTABILITY (test code = STN ACCEPTABLE) STAIN ACCEPTABLE MORPHOLOGY COMMENT (test code = MOC) NORMAL PLATELET ESTIMATE (test code = PLTEST) DECREASED PLATELET MORPHOLOGY (test code = PLTMORPH) NORMAL CBC W/AUTO [id number] 07:12:00* Test Item Value Reference Range Interpretation [...] PLT) 27 K/mm3 150-450 LL Results called [id number] by FERNANDO 07/29/19 0711Critical results verified and [...] = MDIFF) NO, ONLY SCAN NEEDED DIFFERENTIAL [id number] 07:12:00* Test Item Value Reference Range Interpretation Comments STAIN ACCEPTABILITY (test code = STN ACCEPTABLE) CABOT RINGS (test code = CAB) MORPHOLOGY COMMENT (test code = MOC) PLATELET ESTIMATE (test code = PLTEST) PLATELET MORPHOLOGY (test code = PLTMORPH) CBC W/AUTO [id number] 07:12:00* Test Item Value Reference Range Interpretation [...] PLT) 27 K/mm3 150-450 LL Results called [id number] by [facility] 07/29/19 0711Critical results verified and read [...] = MDIFF) NO, ONLY SCAN NEEDED DIFFERENTIAL [id number] 07:12:00* Test Item Value Reference Range Interpretation Comments STAIN ACCEPTABILITY (test code = STN ACCEPTABLE) CABOT RINGS (test code = CAB) MORPHOLOGY COMMENT (test code = MOC) PLATELET ESTIMATE (test code = PLTEST) PLATELET MORPHOLOGY (test code = PLTMORPH) CBC W/AUTO [id number] 07:12:00* Test Item Value Reference Range Interpretation [...] PLT) 27 K/mm3 150-450 LL Results called [id number] by [facility] 07/29/19 0711Critical results verified and read [...] = MDIFF) NO, ONLY SCAN NEEDED DIFFERENTIAL [id number] 07:12:00* Test Item Value Reference Range Interpretation Comments STAIN ACCEPTABILITY (test code = STN ACCEPTABLE) MORPHOLOGY COMMENT (test code = MOC) PLATELET ESTIMATE (test code = PLTEST) PLATELET MORPHOLOGY (test code = PLTMORPH) CBC W/AUTO [id number] 07:12:00* Test Item Value Reference Range Interpretation [...] PLT) 27 K/mm3 150-450 LL Results called [id number] by VFayeLAB.[facility] 07/29/19 0711Critical results verified and read [...] = MDIFF) NO, ONLY SCAN NEEDED DIFFERENTIAL [id number] 07:12:00* Test Item Value Reference Range Interpretation Comments STAIN ACCEPTABILITY (test code = STN ACCEPTABLE) CABOT RINGS (test code = CAB) MORPHOLOGY COMMENT (test code = MOC) PLATELET ESTIMATE (test code = PLTEST) PLATELET MORPHOLOGY (test code = PLTMORPH) BASIC METABOLIC [id number] 05:42:00* Test Item Value Reference Range Interpretation [...] mg/dL 8.5-10.1 N - CT CHEST W/O [id number] 01:50:00 [facility] 1950 Age/S: 69 / F [address] Unit #: [id number] Loc: [place] [address] Phys: Soledad Damian MD Acct: [id number] Dis Date: Status: ADM IN PHONE #: [phone] Exam Date: 07/29/2019 0030 FAX #: [phone] Reason: respiratory failure EXAMS: CPT CODE: [id number] CT CHEST W/O CONTRAST 57950 EXAM: CHEST CT WITHOUT INTRAVENOUS CONTRAST CLINICAL [...] 1 Signed Report (CONTINUED) Name: MARCELA CUMMINGS [facility] : 1950 Age/S: 69 / F [address] Unit #: [id number] Loc: [place] [address] Phys: Qasim Damian MD Acct: [id number] Dis Date: Status: ADM IN PHONE #: Exam Date: 07/29/2019 0030 FAX #: [phone] Reason: respiratory failure EXAMS: CPT CODE: [id number] CT CHEST W/O CO NTRAST 03468 <Continued> 2.There is a wedge-shaped dense opacity [...] 2 Signed Report - CT CHEST W/O [id number] 01:50:00 Name: MOJGAN CUMMINGS [facility] : 1950 Age/S: 69 / F [address] Unit #: [id number] Loc: [place] [address] Phys: Soledad Damian MD Acct: [id number] Dis Date: 08/06/2019 Status: DIS IN PHONE #: [phone] Exam Date: 07/29/2019 0030 FAX #: [phone] Reason: respiratory failure EXAMS: CPT CODE: [id number] CT CHEST W/O CONTRAST 42657 EXAM: CHEST CT WITHOUT INTRAVENOUS CONTRAST CLINICAL [...] 1 Signed Report (CONTINUED) Name: MOJGAN CUMMINGS [facility] : 1950 Age/S: 69 / F [address] [facility] Unit #: [id number] Loc: [place] [address] Phys: Qasim Damian MD Acct: [id number] Dis Date: 08/06/2019 Status: DIS IN PHONE #: Exam Date: 07/29/2019 0030 FAX #: Reason: respiratory failure EXAMS: CPT CODE: [id number] CT CHEST W/O CO NTRAST 13171 <Continued> 2.There is a wedge-shaped dense opacity [...] CC: Ilan Stein; Soledad Damian MD Technologist:NATHANIEL COE CT CTDI: DLP: Trnscb Date/Time: 07/29/2019 (015) tCHERRY [email or web address] Orig Print D/T: S: 07/29/2019 (0153) PAGE 2 Signed Report URINALYSIS [id number] 00:02:00* Test Item Value Reference Range Interpretation [...] FEW #/LPF FEW Urine Source? Clean CatchURINALYSIS [id number] 23:48:00* Test Item Value Reference Range Interpretation [...] HPF NONE Urine Source? Clean CatchCBC W/AUTO [id number] 23:16:00* Test Item Value Reference Range Interpretation [...] 28 K/mm3 150-450 LL Results called to [id number] by V.LAB.HD1 07/28/19 2236Critical results verified and [...] = MDIFF) NO, ONLY SCAN NEEDED DIFFERENTIAL [id number] 23:16:00* Test Item Value Reference Range Interpretation Comments STAIN ACCEPTABILITY (test code = STN ACCEPTABLE) STAIN ACCEPTABLE PLATELET ESTIMATE (test code = PLTEST) DECREASED PLATELET MORPHOLOGY (test code = PLTMORPH) APPEAR LARGE COMPREHENSIVE METABOLIC [id number] 22:52:00* Test Item Value Reference Range Interpretation [...] reference range due to change in reagent. [id number] 22:52:00* Test Item Value Reference Range Interpretation Comments PHOSPHORUS (test code = PHOS) 2.6 mg/dL 2.5-4.9 N [id number] 22:52:00* Test Item Value Reference Range Interpretation Comments LIPASE (test code = LIP) 23 U/L 73.0-393.0 L [id number] 22:52:00* Test Item Value Reference Range Interpretation Comments MAGNESIUM (test code = MAG) 1.3 mg/dL 1.8-2.4 L SERUM [id number] 22:52:00* Test Item Value Reference Range Interpretation Comments SERUM IRON (test code = IRON) 63 ug/dL 50-175 N TOTAL IRON BINDING [id number] 22:52:00* Test Item Value Reference Range Interpretation Comments TOTAL IRON BINDING CAPACITY (test code = TIBC) 176 mcg/dL 250-450 L THYROID PROFILE [id number] 22:52:00* Test Item Value Reference Range Interpretation [...] mIU/mL HYPER : < 0.35 mIU/mL TOTAL [id number] 22:52:00* Test Item Value Reference Range Interpretation Comments TOTAL T3 (test code = T3) T4 [id number] 22:52:00* Test Item Value Reference Range Interpretation Comments T4 FREE (test code = T4F) 0.85 ng/dL 0.76-1.46 N [id number] 22:52:00* Test Item Value Reference Range Interpretation Comments TROPONIN-I (test code = TROPI) <0.015 ng/mL 0-0.045 N CALCIUM [id number] 22:52:00* Test Item Value Reference Range Interpretation Comments CALCIUM IONIZED (test code = ERICH) 1.44 mmol/L 1.12-1.32 H CBC W/AUTO [id number] 22:36:00* Test Item Value Reference Range Interpretation [...] 28 K/mm3 150-450 LL Results called to [id number] by MasonLAB.HD1 07/28/19 2236Critical results verified and read back [...] = MDIFF) NO, ONLY SCAN NEEDED DIFFERENTIAL [id number] 22:36:00* Test Item Value Reference Range Interpretation Comments STAIN ACCEPTABILITY (test code = STN ACCEPTABLE) CABOT RINGS (test code = CAB) MORPHOLOGY COMMENT (test code = MOC) PLATELET ESTIMATE (test code = PLTEST) PLATELET MORPHOLOGY (test code = PLTMORPH) CBC W/AUTO [id number] 22:36:00* Test Item Value Reference Range Interpretation [...] 28 K/mm3 150-450 LL Results called to [id number] by V.LAB.HD1 07/28/19 2236Critical results verified and [...] = MDIFF) NO, ONLY SCAN NEEDED DIFFERENTIAL [id number] 22:36:00* Test Item Value Reference Range Interpretation Comments STAIN ACCEPTABILITY (test code = STN ACCEPTABLE) CABOT RINGS (test code = CAB) MORPHOLOGY COMMENT (test code = MOC) PLATELET ESTIMATE (test code = PLTEST) PLATELET MORPHOLOGY (test code = PLTMORPH) CBC W/AUTO [id number] 22:36:00* Test Item Value Reference Range Interpretation [...] 28 K/mm3 150-450 LL Results called to [id number] by CORBYHD1 07/28/19 2236Critical results verified and read back [...] = MDIFF) NO, ONLY SCAN NEEDED DIFFERENTIAL [id number] 22:36:00* Test Item Value Reference Range Interpretation Comments STAIN ACCEPTABILITY (test code = STN ACCEPTABLE) MORPHOLOGY COMMENT (test code = MOC) PLATELET ESTIMATE (test code = PLTEST) PLATELET MORPHOLOGY (test code = PLTMORPH) CBC W/AUTO [id number] 22:36:00* Test Item Value Reference Range Interpretation [...] 28 K/mm3 150-450 LL Results called to [id number] by V.LAB.HD1 07/28/19 2236Critical results verified and [...] = MDIFF) NO, ONLY SCAN NEEDED DIFFERENTIAL [id number] 22:36:00* Test Item Value Reference Range Interpretation Comments STAIN ACCEPTABILITY (test code = STN ACCEPTABLE) CABOT RINGS (test code = CAB) MORPHOLOGY COMMENT (test code = MOC) PLATELET ESTIMATE (test code = PLTEST) PLATELET MORPHOLOGY (test code = PLTMORPH) T3 [id number] 22:32:00* Test Item Value Reference Range Interpretation Comments T3 FREE (test code = T3F) pg/mL B-TYPE NATRIURETIC [id number] 22:32:00* Test Item Value Reference Range Interpretation Comments B-TYPE NATRIURETIC PEPTIDE (test code = BNP) 51.07 pgram/mL 0-100 N [id number] 22:31:00* Test Item Value Reference Range Interpretation Comments GLYCOSYLATED HEMOGLOBIN (HA1C) (test code = GLYHGB) 4.8 % HbA1 4. 8-6.0 N ESTIMATED AVERAGE GLUCOSE (test code = EAG) 91 MG/DL COMPREHENSIVE METABOLIC [id number] 22:30:00* Test Item Value Reference Range Interpretation [...] reference range due to change in reagent. [id number] 22:30:00* Test Item Value Reference Range Interpretation Comments PHOSPHORUS (test code = PHOS) 2.6 mg/dL 2.5-4.9 N [id number] 22:30:00* Test Item Value Reference Range Interpretation Comments LIPASE (test code = LIP) 23 U/L 73.0-393.0 L [id number] 22:30:00* Test Item Value Reference Range Interpretation Comments MAGNESIUM (test code = MAG) 1.3 mg/dL 1.8-2.4 L SERUM [id number] 22:30:00* Test Item Value Reference Range Interpretation Comments SERUM IRON (test code = IRON) 63 ug/dL 50-175 N TOTAL IRON BINDING [id number] 22:30:00* Test Item Value Reference Range Interpretation Comments TOTAL IRON BINDING CAPACITY (test code = TIBC) 176 mcg/dL 250-450 L THYROID PROFILE [id number] 22:30:00* Test Item Value Reference Range Interpretation [...] mIU/mL HYPER : < 0.35 mIU/mL TOTAL [id number] 22:30:00* Test Item Value Reference Range Interpretation Comments TOTAL T3 (test code = T3) T4 [id number] 22:30:00* Test Item Value Reference Range Interpretation Comments T4 FREE (test code = T4F) 0.85 ng/dL 0.76-1.46 N [id number] 22:30:00* Test Item Value Reference Range Interpretation Comments TROPONIN-I (test code = TROPI) <0.015 ng/mL 0-0.045 N CALCIUM [id number] 22:30:00* Test Item Value Reference Range Interpretation [...] RELATED TO RISK LEVELS ASRECOMMENDED BY THE VEENA. HEART, LUNG, AND BLOOD INST. HDL CHOLESTEROL (test code = HDL) 54 mg/dL 40-60 N LIPOPROTEIN LDL (test code = LDL) 74 mg/dL 100-129 L Reference Interval: mg/dL mmol/L Optimal <100 <2.6Near/above optimal 100-129 2.6- 3.3Borderline High 130-159 3.4-4.1High 160-189 4.1-4.9Very High >=190 >=4.9========= This LDL result is a direct measurement.========= [id number] 22:27:00* Test Item Value Reference Range Interpretation Comments CALCIUM (test code = CA) 9.3 mg/dL 8.5-10.1 N [id number] 22:27:00* Test Item Value Reference Range Interpretation Comments CKMB (test code = CKMBT) < 1.0 ng/mL 0-6.0 N LACTIC [id number] 22:26:00* Test Item Value Reference Range Interpretation Comments LACTIC ACID (test code = LACT) 0.7 mmol/L 0.4-1.9 N - XR CHEST 1 [id number] 22:23:00 FAX: Kian Rogers [phone] [place]: [facility]: ADM FAX: Ilan Holt MD Name: MARCELA CUMMINGS [facility] : 1950 Age/S: 69/F [address] Unit #: [id number] Loc: [place] [address] Phys: Kian Rogers Acct: [id number] Dis Date: Status: ADM IN PHONE #: [phone] Exam Date: 07/28/20192214 FAX #: [phone] Reason: updated pulm status EXAMS: CPT CODE: [id number] XR CHEST 1 V 90217 HISTORY: Bleeding from tracheostomy; updated pulm status [...] By: [email or web address] Orig Print D/T: S: 07/28/2019 (5278) PAGE 1 Signed Report - XR CHEST 1 [id number] 22:23:00 FAX: Kian Rogers [phone] [place]: St: DIS FAX: Ilan Holt MD Name: MOJGAN CUMMINGS [facility] : 1950 Age/S: 69/F [address] [facility] Unit #: [id number] Loc: V.2080 [place] [address] Phys: Kian Rogers Acct: [id number] Dis Date: [id number] Status: DIS IN PHONE #: [phone] Exam Date: 07/28/20192214 FAX #: [phone] Reason: updated pulm status EXAMS: CPT CODE: [id number] XR CHEST 1 V 96353 HISTORY: Bleeding from tracheostomy; updated pulm status [...] By: [email or web address] Orig Print D/T: S: 07/28/2019 (3256) PAGE 1 Signed Report [id number] 22:20:00* Test Item Value Reference Range Interpretation [...] LDL (test code = LDL) mg/dL 100-129 [id number] 22:20:00* Test Item Value Reference Range Interpretation Comments CALCIUM (test code = CA) 9.3 mg/dL 8.5-10.1 N [id number] 22:20:00* Test Item Value Reference Range Interpretation Comments CKMB (test code = CKMBT) ng/mL 0-6.0 COMPREHENSIVE METABOLIC [id number] 22:14:00* Test Item Value Reference Range Interpretation [...] TOTAL (test code = ALKP) IUnit/L 45-117 [id number] 22:14:00* Test Item Value Reference Range Interpretation Comments PHOSPHORUS (test code = PHOS) mg/dL 2.5-4.9 [id number] 22:14:00* Test Item Value Reference Range Interpretation Comments LIPASE (test code = LIP) U/L 73.0-393.0 [id number] 22:14:00* Test Item Value Reference Range Interpretation Comments MAGNESIUM (test code = MAG) mg/dL 1.8-2.4 SERUM [id number] 22:14:00* Test Item Value Reference Range Interpretation Comments SERUM IRON (test code = IRON) ug/dL 50-175 TOTAL IRON BINDING [id number] 22:14:00* Test Item Value Reference Range Interpretation Comments TOTAL IRON BINDING CAPACITY (test code = TIBC) mcg/dL 250-450 THYROID PROFILE [id number] 22:14:00* Test Item Value Reference Range Interpretation Comments T3 UPTAKE (test code = T3UP) % 30.0-40.0 T4 (THYROXINE) (test code = T4) ug/dL 4.5-13.9 T7 (FREE THYROXINE INDEX) (test code = T7) FTI 1.3-5.1 THYROID STIMULATING HORMONE (test code = TSH) uIU/mL 0.36-3.7 4 TOTAL [id number] 22:14:00* Test Item Value Reference Range Interpretation Comments TOTAL T3 (test code = T3) T4 [id number] 22:14:00* Test Item Value Reference Range Interpretation Comments T4 FREE (test code = T4F) ng/dL 0.76-1.46 [id number] 22:14:00* Test Item Value Reference Range Interpretation Comments TROPONIN-I (test code = TROPI) ng/mL 0-0.045 CALCIUM [id number] 22:14:00* Test Item Value Reference Range Interpretation Comments CALCIUM IONIZED (test code = ERICH) mmol/L 1.12-1.32 PROTHROMBIN [id number] 22:13:00* Test Item Value Reference Range Interpretation [...] PATIENT ON ANTICOAGULANTS? YLIST ANTICOAGULANTS HEPARINTHROMBOPLASTIN TIME [id number] 22:13:00* Test Item Value Reference Range Interpretation Comments THROMBOPLASTIN TIME PARTIAL (test code = PTT) 28.5 seconds 25.0-36. 5 N IS PATIENT ON ANTICOAGULANTS? YLIST ANTICOAGULANTS HEPARIN- XR CHEST 1 V 2019-07-28 19:20:00 FAX: Ilan Holt MD [place]: B St: ADM FAX: Lisa Jeronimo MD [phone] Name: MARCELA CUMMINGS [facility] : 1950 Age/S: 69/F [address] [facility] Unit #: [id number] Loc: [place] [address] Phys: Lisa Jeronimo MD Acct: [id number] Dis Date: Status: ADM IN PHONE #: [phone] Exam Date: 07/28/2019 181 FAX #: [phone] Reason: post [facility] EXAMS: CPT CODE: [id number] XR CHEST 1 V 56642 HISTORY: Bleeding from tracheostomy; post bronchoscopy TECHNIQUE: AP chest x-ray COMPARISON: Same date, 2 hours earlier IMPRESSION: No significant interval change. No pneumothorax. No airspace consolidation or pleural effusion. Right basilar subsegmental atelectasis. Normal heart size. Tracheostomy tube. LOCATION: at 1920 Reported and signed by: Lenka Farrar D.O. CC: Ilan Stein; Lisa Jeronimo MD Technologist: RADHA ALEXANDRA(R) Trnscrd Date/Time/By: 07/28/2019 (1919) : By: [email or web address] Orig Print D/T: S: 07/28/2019 (1922) PAGE 1 Signed Report - XR CHEST 1 [id number] 19:20:00 FAX: Ilan Holt MD [place]: [address]: DIS FAX: Lisa Jeronimo MD [phone] Name: MOJGAN CUMMINGS [facility] : 1950 Age/S: 69/F [address] [facility] Unit #: [id number] Loc: V.[address] [place] [address] Phys: Lisa Jeronimo MD Acct: [id number] Dis Date: [id number] Status: DIS IN PHONE #: [phone] Exam Date: 07/28/20191814 FAX #: [phone] Reason: post bron EXAMS: CPT CODE: [id number] XR CHEST 1 V [id number] HISTORY: Bleeding from tracheostomy; post bronchoscopy TECHNIQUE: AP chest x-ray COMPARISON: Same date, 2 hours earlier IMPRESSION: No significant interval change. No pneumothorax. No airspace consolidation or pleural effusion. Right basilar subsegmental atelectasis. Normal heart size. Tracheostomy tube. LOCATION: [facility] at 1919 Reported and signed by: Lenka Farrar D.O. CC: Ilan Stein; Lisa Jeronimo MD Technologist: RADHA LOCKETT RT(R) Trnscrd Date/Time/By: 07/28/2019 (1919) : By: [email or web address] Orig Print D/T: S: 07/28/2019 (1922) PAGE 1 Signed Report CBC W/AUTO [id number] 17:12:00* Test Item Value Reference Range Interpretation [...] 36 K/mm3 150-450 LL Results called to [id number] by [email or web address] 07/28/19 1629Critical results verified and read back [...] = MDIFF) NO, ONLY SCAN NEEDED DIFFERENTIAL KEMP1114-76-07 17:12:00* Test Item Value Reference Range Interpretation Comments STAIN ACCEPTABILITY (test code = STN ACCEPTABLE) STAIN ACCEPTABLE MORPHOLOGY COMMENT (test code = MOC) NORMAL PLATELET ESTIMATE (test code = PLTEST) DECREASED PLATELET MORPHOLOGY (test code = PLTMORPH) NORMAL COMPREHENSIVE METABOLIC [id number] 16:41:00* Test Item Value Reference Range Interpretation [...] due to change in reagent. COMPREHENSIVE METABOLIC [id number] 16:33:00* Test Item Value Reference Range Interpretation [...] code = ALKP) IUnit/L 45-117 CBC W/AUTO RKGY2156-08-01 16:29:00* Test Item Value Reference Range Interpretation [...] 36 K/mm3 150-450 LL Results called to [place] [address] by [email or web address] 07/28/19 1629Critical results verified and read back [...] = MDIFF) NO, ONLY SCAN NEEDED DIFFERENTIAL [id number] 16:29:00* Test Item Value Reference Range Interpretation Comments STAIN ACCEPTABILITY (test code = STN ACCEPTABLE) CABOT RINGS (test code = CAB) MORPHOLOGY COMMENT (test code = MOC) PLATELET ESTIMATE (test code = PLTEST) PLATELET MORPHOLOGY (test code = PLTMORPH) CBC W/AUTO [id number] 16:29:00* Test Item Value Reference Range Interpretation [...] 36 K/mm3 150-450 LL Results called to [id number] by [email or web address] 07/28/19 1629Critical results verified and read back [...] = MDIFF) NO, ONLY SCAN NEEDED DIFFERENTIAL BGHY8883-10-20 16:29:00* Test Item Value Reference Range Interpretation Comments STAIN ACCEPTABILITY (test code = STN ACCEPTABLE) CABOT RINGS (test code = CAB) MORPHOLOGY COMMENT (test code = MOC) PLATELET ESTIMATE (test code = PLTEST) PLATELET MORPHOLOGY (test code = PLTMORPH) CBC W/AUTO [id number] 16:29:00* Test Item Value Reference Range Interpretation [...] 36 K/mm3 150-450 LL Results called to [id number] by [email or web address] 07/28/19 1629Critical results verified and read back [...] = MDIFF) NO, ONLY SCAN NEEDED DIFFERENTIAL [id number] 16:29:00* Test Item Value Reference Range Interpretation Comments STAIN ACCEPTABILITY (test code = STN ACCEPTABLE) MORPHOLOGY COMMENT (test code = MOC) PLATELET ESTIMATE (test code = PLTEST) PLATELET MORPHOLOGY (test code = PLTMORPH) CBC W/AUTO [id number] 16:29:00* Test Item Value Reference Range Interpretation [...] 36 K/mm3 150-450 LL Results called to [id number] by V.[email or web address] 07/28/19 1629Critical results verified and read back [...] = MDIFF) NO, ONLY SCAN NEEDED DIFFERENTIAL IYGU3515-14-05 16:29:00* Test Item Value Reference Range Interpretation Comments STAIN ACCEPTABILITY (test code = STN ACCEPTABLE) CABOT RINGS (test code = CAB) MORPHOLOGY COMMENT (test code = MOC) PLATELET ESTIMATE (test code = PLTEST) PLATELET MORPHOLOGY (test code = PLTMORPH) - XR CHEST 1 [id number] 16:28:00 FAX: Lisa Jeronimo MD [phone] [place]: B St: PRE Name: MARCELA SAUCEDO [facility] : [birth year] Age/S: 69/F [address] [facility] Unit #: [id number] Loc: LUIS M [place] [address] Phys: Lisa Jeronimo MD Acct: [id number] Dis Date: Status: PRE ER PHONE #: [phone] Exam Date: 07/28/2019 1612 FAX #: [phone] Reason: sob EXAMS: CPT CODE: [id number] XR CHEST 1 V 05730 HISTORY: Shortness of breath TECHNIQUE: AP chest x-ray COMPARISON: None FINDINGS: No airspace consolidation or pleural effusion. Tracheost alonzo tube. Normal heart size. Mediastinal silhouette is unremarkable. Degenerative changes of the spine and shoulders. IMPRESSION: No radiographic evidence of acute cardiopulmonary process. LOCATION: LP at 1628 Reported and signed by: Lenka Farrar D.O. CC: Lisa Jeronimo MD Technologist: Misty ALEXANDRA(R) Trnscrd Date/Time/By: 07/28/2019 (4741) : By: [email or web address] Orig Print D/T: S: 07/28/2019 (6299) PAGE 1 Signed Report - XR CHEST 1 [id number] 16:28:00 FAX: Lisa Jeronimo MD [phone] [place]: B St: DIS Name: MOJGAN SAUCEDO [facility] : [birth year] Age/S: 69/F [address] Unit #: [id number] Loc: V.2080 LUIS M [place] [address] Phys: Lisa Jeronimo MD Acct: [id number] Dis Date: [id number] Status: DIS IN PHONE #: [phone] Exam Date: 07/28/2019 1612 FAX #: [phone] Reason: sob EXAMS: CPT CODE: [id number] XR CHEST 1 V 52218 HISTORY: Shortness of breath TECHNIQUE: AP chest x-ray COMPARISON: None FINDINGS: No airspace consolidation or pleural effusion. Tracheost alonzo tube. Normal heart size. Mediastinal silhouette is unremarkable. Degenerative changes of the spine and shoulders. IMPRESSION: No radiographic evidence of acute cardiopulmonary process. LOCATION: LP at 1628 Reported and signed by: Lenka Farrar D.O. CC: Lisa Jeronimo MD Technologist: Misty ALEXANDRA(R) Trnscrd Date/Time/By: 07/28/2019 (4702) : By: [email or web address] Orig Print D/T: S: 07/28/2019 (0055) PAGE 1 Signed Report Platelet Estimate 2019-07-13 10:47:00* Test Item Value Reference Range Interpretation Comments Platelet Estimate (test code = 84474-5) MODERATELY DECREASED [facility] Tyler[facility]atelet Morphology Ykbrggt2529-94-68 10:47:00* Test Item Value Reference Range Interpretation Comments Platelet Morphology Comment (test code = 62394-0) NORMAL [facility] TylerRed Cell Morphology Pyjgugg2812-63-73 10:47:00* Test Item Value Reference Range Interpretation Comments Red Cell Morphology Comment (test code = 6742-1) NORMAL [facility] TylerRed Cell Morphology Dlxaeqk5400-47-70 10:47:00* Test Item Value Reference Range Interpretation Comments Red Cell Morphology Comment (test code = 6742-1) NORMAL [facility] TylerRed Cell Morphology Ntwnbuy1599-52-80 10:47:00* Test Item Value Reference Range Interpretation Comments Red Cell Morphology Comment (test code = 6742-1) NORMAL [facility] Station[facility] Tljuz9502-42-51 06:51:00* Test Item Value Reference Range Interpretation Comments Sodium Level (test code = 2951-2) 141 136-145 [facility] TylerPotassium Yicpv0428-16-19 06:51:00* Test Item Value Reference Range Interpretation Comments Potassium Level (test code = 2823-3) 3.8 3.5-5.1 [facility] TylerChloride Mbene9708-91-35 06:51:00* Test Item Value Reference Range Interpretation Comments Chloride Level (test code = 2075-0) 105 98-107 [facility] TylerCarbon Dioxide Zjjno4425-99-16 06:51:00* Test Item Value Reference Range Interpretation Comments Carbon Dioxide Level (test code = 2028-9) 28 22-29 [facility] TylerAnion Tnl4205-57-49 06:51:00* Test Item Value Reference Range Interpretation Comments Anion Gap (test code = 47514-1) 11.8 8-16 [facility] TylerBlood Urea Xstrkkia1815-68-49 06:51:00* Test Item Value Reference Range Interpretation Comments Blood Urea Nitrogen (test code = 3094-0) 15 7-26 [facility] TylerCreatinine2019-10-25 06:51:00* Test Item Value Reference Range Interpretation Comments Creatinine (test code = 2160-0) 0.79 0.57-1.11 [facility] TylerBUN/Creatinine Crobw6240-13-45 06:51:00* Test Item Value Reference Range Interpretation Comments BUN/Creatinine Ratio (test code = 3097-3) 19 6- [facility] TylerEstimat Glomerular Filtration Rate 2019-07-13 06:51:00* Test Item Value Reference Range Interpretation Comments Estimat Glomerular Filtration Rate (test code = 403085060) > 60 >60 Ranges were taken from the National Kidney Disease Education Program and the [facility] Kid[employer] Foundation literature.Reference ranges:60 or greater: Obxbuz75-68 ( for 3 consecutive months): Chronic kidney disease 15 or less: Kidney failureCH[facility]STUS [facility] – TylerGlucose Yzwlk6619-71-46 06:51:00* Test Item Value Reference Range Interpretation Comments Glucose Level (test code = HFP4281) 82 74-118 [facility] TylerCalcium Rfgoq0111-25-53 06:51:00* Test Item Value Reference Range Interpretation Comments Calcium Level (test code = 97797-3) 10.2 8.4-10.2 [facility] TylerWhite Blood Nxwwk0338-35-98 06:30:00* Test Item Value Reference Range Interpretation Comments White Blood Count (test code = 6690-2) 5.31 4.8-10.8 [facility] TylerRed Blood Hpjcd9683-58-11 06:30:00* Test Item Value Reference Range Interpretation Comments Red Blood Count (test code = 789-8) 3.33 3.6-5.1 L [facility] TylerHemoglobin2019-10-25 06:30:00* Test Item Value Reference Range Interpretation Comments Hemoglobin (test code = 79518-8) 9.9 12.0-16.0 L [facility] TylerHematocrit2019-10-25 06:30:00* Test Item Value Reference Range Interpretation Comments Hematocrit (test code = 4544-3) 31.4 34.2-44.1 L [facility] TylerMean Corpuscular Srpahl3837-92-19 06:30:00* Test Item Value Reference Range Interpretation Comments Mean Corpuscular Volume (test code = 787-2) 94.3 81-99 [facility] TylerMean Corpuscular Rvrhrxhqur1118-57-48 06:30:00* Test Item Value Reference Range Interpretation Comments Mean Corpuscular Hemoglobin (test code = 785-6) 29.7 28-32 [facility] TylerMean Corpuscular Hemoglobin Concent 2019-07-13 06:30:00* Test Item Value Reference Range Interpretation Comments Mean Corpuscular Hemoglobin Concent (test code = 786-4) 31.5 31-35 [facility] TylerRed Cell Distribution Jnwvq1268-69-43 06:30:00* Test Item Value Reference Range Interpretation Comments Red Cell Distribution Width (test code = 51418-7) 11.4 11.7 -14.4 L [facility] TylerPlatelet Egxrl0066-41-91 06:30:00* Test Item Value Reference Range Interpretation Comments Platelet Count (test code = 777-3) 31 140-360 LL Results repeated and called to Bertha Ayala at 0628 on 07/13/19 by Sherrie vásquez. Read back and verified.[facility] TylerNeutrophils (%) (Auto)2019-07-13 06:30:00* Test Item Value Reference Range Interpretation Comments Neutrophils (%) (Auto) (test code = 45017-3) 61.5 38.7-80.0 [facility] TylerLymphocytes (%) (Auto)2019-07-13 06:30:00 * Test Item Value Reference Range Interpretation Comments Lymphocytes (%) (Auto) (test code = 736-9) 24.7 18.0-39.1 [facility] TylerMonocytes (%) (Auto)2019-07-13 06:30:00* Test Item Value Reference Range Interpretation Comments Monocytes (%) (Auto) (test code = 5905-5) 7.7 4.4-11.3 [facility] TylerEosinophils (%) (Auto)2019-07-13 06:30:00 * Test Item Value Reference Range Interpretation Comments Eosinophils (%) (Auto) (test code = 713-8) 5.1 0.0-6.0 [facility] TylerBasophils (%) (Auto)2019-07-13 06:30:00* Test Item Value Reference Range Interpretation Comments Basophils (%) (Auto) (test code = 706-2) 0.4 0.0-1.0 [facility] TylerIM GRANULOCYTES %2019-07-13 06:30:00* Test Item Value Reference Range Interpretation Comments IM GRANULOCYTES % (test code = IM GRANULOCYTES %) 0.6 0.0- 1.0 [facility] TylerNeutrophils # (Auto)2019-07-13 06:30:00* Test Item Value Reference Range Interpretation Comments Neutrophils # (Auto) (test code = 751-8) 3.3 2.1-6.9 [facility] TylerLymphocytes # (Auto)2019-07-13 06:30:00* Test Item Value Reference Range Interpretation Comments Lymphocytes # (Auto) (test code = 98690-4) 1.3 1.0-3.2 [facility] TylerMonocytes # (Auto)2019-07-13 06:30:00* Test Item Value Reference Range Interpretation Comments Monocytes # (Auto) (test code = 742-7) 0.4 0.2-0.8 [facility] TylerEosinophils # (Auto)2019-07-13 06:30:00* Test Item Value Reference Range Interpretation Comments Eosinophils # (Auto) (test code = 711-2) 0.3 0.0-0.4 [facility] TylerBasophils # (Auto)2019-07-13 06:30:00* Test Item Value Reference Range Interpretation Comments Basophils # (Auto) (test code = 704-7) 0.0 0.0-0.1 [facility] TylerAbsolute Immature Granulocyte (auto 2019-07-13 06:30:00* Test Item Value Reference Range Interpretation Comments Absolute Immature Granulocyte (auto (melina t code = Absolute Immature Granulocyte (auto) 0.03 0-0.1 [facility] TylerDifferential Total Cells Counted 2019-07-12 06:15:00* Test Item Value Reference Range Interpretation Comments Differential Total Cells Counted (test code = Differen tial Total Cells Counted) 16 [facility] TylerNeutrophils % (Manual)2019-07-12 06:15:00 * Test Item Value Reference Range Interpretation Comments Neutrophils % (Manual) (test code = 59282-6) 56 40-74 [facility] TylerMonocytes % (Manual)2019-07-12 06:15:00* Test Item Value Reference Range Interpretation Comments Monocytes % (Manual) (test code = 744-3) 31 3.4-9.0 H [facility] TylerEosinophils % (Manual)2019-07-12 06:15:00 * Test Item Value Reference Range Interpretation Comments Eosinophils % (Manual) (test code = 714-6) 13 0-7 H [facility] TylerDifferential Total Cells Counted 2019-07-12 06:15:00* Test Item Value Reference Range Interpretation Comments Differential Total Cells Counted (test code = Differen tial Total Cells Counted) 16 [facility] TylerNeutrophils % (Manual)2019-07-12 06:15:00 * Test Item Value Reference Range Interpretation Comments Neutrophils % (Manual) (test code = 21005-7) 56 40-74 [facility] TylerMonocytes % (Manual)2019-07-12 06:15:00* Test Item Value Reference Range Interpretation Comments Monocytes % (Manual) (test code = 744-3) 31 3.4-9.0 H [facility] TylerEosinophils % (Manual)2019-07-12 06:15:00 * Test Item Value Reference Range Interpretation Comments Eosinophils % (Manual) (test code = 714-6) 13 0-7 H [facility] TylerDifferential Total Cells Counted 2019-07-12 06:15:00* Test Item Value Reference Range Interpretation Comments Differential Total Cells Counted (test code = Differen tial Total Cells Counted) 16 [facility] TylerNeutrophils % (Manual)2019-07-12 06:15:00 * Test Item Value Reference Range Interpretation Comments Neutrophils % (Manual) (test code = 51636-3) 56 40-74 [facility] TylerMonocytes % (Manual)2019-07-12 06:15:00* Test Item Value Reference Range Interpretation Comments Monocytes % (Manual) (test code = 744-3) 31 3.4-9.0 H [facility] TylerEosinophils % (Manual)2019-07-12 06:15:00 * Test Item Value Reference Range Interpretation Comments Eosinophils % (Manual) (test code = 714-6) 13 0-7 H [facility] TylerDifferential Total Cells Counted 2019-07-12 06:15:00* Test Item Value Reference Range Interpretation Comments Differential Total Cells Counted (test code = Differen tial Total Cells Counted) 16 [facility] TylerNeutrophils % (Manual)2019-07-12 06:15:00 * Test Item Value Reference Range Interpretation Comments Neutrophils % (Manual) (test code = 72391-0) 56 40-74 [facility] TylerMonocytes % (Manual)2019-07-12 06:15:00* Test Item Value Reference Range Interpretation Comments Monocytes % (Manual) (test code = 744-3) 31 3.4-9.0 H [facility] TylerEosinophils % (Manual)2019-07-12 06:15:00 * Test Item Value Reference Range Interpretation Comments Eosinophils % (Manual) (test code = 714-6) 13 0-7 H [facility] TylerPhosphorus Jvudb4766-85-81 05:45:00* Test Item Value Reference Range Interpretation Comments Phosphorus Level (test code = UGA2924) 2.5 2.3-4.7 [facility] TylerMagnesium Vzkbw4136-35-25 05:45:00* Test Item Value Reference Range Interpretation Comments Magnesium Level (test code = 89770-9) 1.5 1.3-2.1 [facility] TylerFluoroscopic procedure less than one hour ofqbweyw5342-03-54 04:50:00* Test Item Value Reference Range Interpretation Comments Differential Total Cells Counted (test code = Differen tial Total Cells Counted) 16 [facility] TylerManual blood neutrophils/100 leukocytes 2019-07-12 04:50:00* Test Item Value Reference Range Interpretation Comments Neutrophils % (Manual) (test code = 76956-1) 56 40-74 [facility] blood monocytes/100 leukocytes 2019-07-12 04:50:00* Test Item Value Reference Range Interpretation Comments Monocytes % (Manual) (test code = 744-3) 31 3.4-9.0 [facility] blood eosinophil count as percentage of total csvwvujtyi2486-69-99 04:50:00* Test Item Value Reference Range Interpretation Comments Eosinophils % (Manual) (test code = 714-6) 13 0-7 [facility] TylerFluoroscopic procedure less than one hour vjowejcc9857-29-57 04:50:00* Test Item Value Reference Range Interpretation Comments Differential Total Cells Counted (test code = Differen tial Total Cells Counted) 16 [facility] neutrophils/100 leukocytes 2019-07-12 04:50:00* Test Item Value Reference Range Interpretation Comments Neutrophils % (Manual) (test code = 59622-3) 56 40-74 [facility] blood monocytes/100 leukocytes 2019-07-12 04:50:00* Test Item Value Reference Range Interpretation Comments Monocytes % (Manual) (test code = 744-3) 31 3.4-9.0 [facility] blood eosinophil count as percentage of total clqgijdhtl4136-74-89 04:50:00* Test Item Value Reference Range Interpretation Comments Eosinophils % (Manual) (test code = 714-6) 13 0-7 [facility] TylerCT CHEST Y6105-17-09 12:15:00 [place] [address] Patient Name: MOJGAN CUMMINGS MR #: [id number] : 1950 Age/Sex: 69/F Req #: [id number] Adm Physician: ILAN STEIN MD Ordered by: MARK ANTHONY KERNS MD Report #: [id number] Location: [facility] Room/Bed: [place] [address] Procedure: [id number] CT/CT CHEST W Exam Date: 07/11/19 Exam [...] ANTHONY KERNS MD CT SOFT TISSUE NECK H1753-76-72 12:04:00 [place] [address] Patient Name: MOJGAN CUMMINGS MR #: [id number] : 1950 Age/Sex: 69/F Req #: [id number] Adm Physician: ILAN STEIN MD Ordered by: MARK ANTHONY KERNS MD Report #: [id number] Location: [facility] Room/Bed: [facility] 187-1 Procedure: [id number] CT/CT SOFT TISSUE NECK W Exam Date: [...] carotid bulb calcified plaque is seen. 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, and perivertebral spaces a [...] 12:18 PM Dictated By: MARK MATIAS MD 17 Transcribed By: BAMBI on 07/11/191217 COPY TO: MARK ANTHONY KERNS MD CHEST SINGLE (PORTABLE)2019-07-11 08:16:00 [place] [address] Patient Name: MOJGAN CUMMINGS MR #: [id number] : 1950 Age/Sex: 69/F Req #: [id number] Adm Physician: ILAN STEIN MD Ordered by: PHOENIX CIFUENTES MD Report #: [id number] Location: [facility] Room/Bed: [place] [address] Procedure: 1023-0 007 DX/CHEST SINGLE (PORTABLE) Exam Date: 07/11/19 E xam Time: 05 REPORT STATUS: Lizzy d Chest, 1 view, [...] on 07/11/19816 COPY TO: PHOENIX CIFUENTES MD Total Tesprhyjg1945-65-13 06:05:00* Test Item Value Reference Range Interpretation Comments Total Bilirubin (test code = 1975-2) 0.3 0.2-1.2 [facility] TylerAspartate Amino Transf (AST/SGOT) 2019-07-11 06:05:00* Test Item Value Reference Range Interpretation Comments Aspartate Amino Transf (AST/SGOT) (test code = Aspartate Amino Transf (AST/SGOT)) 10 5-34 [facility] TylerAlanine Aminotransferase (ALT/SGPT) 2019-07-11 06:05:00* Test Item Value Reference Range Interpretation Comments Alanine Aminotransferase (ALT/SGPT) (test code = 1742-6) 10 0-55 [facility] TylerTotal Zdijpnm8789-73-35 06:05:00* Test Item Value Reference Range Interpretation Comments Total Protein (test code = 2885-2) 6.1 6.5-8.1 L [facility] TylerAlbumin2019-10-23 06:05:00* Test Item Value Reference Range Interpretation Comments Albumin (test code = 1751-7) 3.1 3.5-5.0 L [facility] TylerGlobulin2019-10-23 06:05:00* Test Item Value Reference Range Interpretation Comments Globulin (test code = 96074-4) 3.0 2.3-3.5 [facility] TylerAlbumin/Globulin Mtiby4823-71-16 06:05:00 * Test Item Value Reference Range Interpretation Comments Albumin/Globulin Ratio (test code = 1759-0) 1.0 0.8-2.0 [facility] TylerAlkaline Wyhtayouagi5082-74-76 06:05:00* Test Item Value Reference Range Interpretation Comments Alkaline Phosphatase (test code = 6768-6) 98 40-150 [facility] TylerProthrombin Tion5889-64-22 20:24:00* Test Item Value Reference Range Interpretation Comments Prothrombin Time (test code = 5902-2) 13.5 11.9-14.5 [facility] TylerProthromb Time International Ratio 2019-07-10 20:24:00* Test Item Value Reference Range Interpretation Comments Prothromb Time International Ratio (test code = 6301-6) 0.98 Oral Anticoagulant Therapy INR Values:1. Low Intensity Therapy 1.5 - 2.02 . Moderate Intensity Therapy 2.0 - 3.03. High Intensity Therapy(1) 2.5 - 3. 54. High Intensity Therapy(2) 3.0 - 4.05. Panic Value INR > 5.0 [facility] TylerActivated Partial Thromboplast Time 2019-07-10 20:24:00* Test Item Value Reference Range Interpretation Comments Activated Partial Thromboplast Time (test code = 52426-5) 28.9 23.8-35.5 [facility] TylerCHEST SINGLE (PORTABLE)2019-07-10 19:54:00 [place] [address] Patient Name: MOJGAN CUMMINGS MR #: [id number] : 1950 Age/Sex: 69/F Req #: [id number] Adm Physician: Ordered by: PHOENIX CIFUENTES MD Report #: [id number] Location: ER Room/Bed: Procedure: 68 DX/CHEST SINGLE (PORTABLE) Exam Date: 07/10/19 Ex am Time: 1950 REPORT STATUS: Signed EXAMINATION: CHEST SINGLE (PORTABLE) INDICATION: Hemoptysis hemoptysis [id number] 1952 Y COMPARISON: 06/14/2019 D ISCUSSION: Portable technique, [...] tion. 2. No consolidative pneumonia.. Signed by: Dr. Hayes Givens M.D. o lamonte 07/10/2019 7:59 PM Dictated By: HAYES GIVENS MD, MD Electronically Sig julian By: HAYES GIVENS MD, MD on 07/10/191958 Transcribed By: BAMBI on 1960 COPY TO: PHOENIX CIFUENTES MD SVLEGHOJFCTU8182-52-94 05:54:0010.7[facility] DehqqixOWJTXPNPGWRO7082-67-54 05:54:68563Yqszudrd Jet NJRWBMBTVZPU1465-44-97 05:54:0026[facility] MigdoygPMCJPGGCYZRG7003-62-15 05:54:00 0.80[facility] IlcimjbJMZWLYSWLHZC1034-95-53 05:54:54931Uymqdpve Scroggins XLGWWOPYJXBU0323-22-83 05:54:003.7[facility] CzhbosrNQCFDTOGZONX2734-42-95 05:54:75775Jvllpnpe LnxfyioOCHLNUZMKPSI9826-76-52 05:54:0029[facility] Jet ENHFWQVUNOGC0347-72-19 05:54:009.5[facility] BkzlnzyBYNVGRZXEBNG8009-89-58 05:54:0074[facility] NauucrvGXPFMZHEMR9847-02-74 05:54:0065.2[facility] Jet PDYLJWVASF1809-86-70 05:54:0023.3[facility] UtefbynDNLMOYJXMK1052-38-41 05:54:00 7.5[facility] UbukixkFVBEOZBRPX1489-70-78 05:54:003.4[facility] HermannHEMATOLOGY 2019-07-01 05:54:000.6[facility] UaomqucVXRKMLWDCD6028-69-38 05:54:004.7[facility] WsmdzfiEQGLMNYWZV7135-30-39 05:54:001.7[facility] YkaetcjJVAAYOOBUK0641-10-30 05:54:000.5[facility] UnnujapWXYLEVQFLP4901-91-46 05:54:000.2[facility] Jet IFILAIFZPH9818-35-48 05:54:007.3[facility] GazycilJTPBPDYJPO8473-64-45 05:54:00 3.85[facility] QqobxojCYMTTBYRXW2910-87-22 05:54:0011.8[facility] HermannHEMATOLOGY 2019-07-01 05:54:0035.6[facility] CotawocMTLAKBPMRF2044-15-12 05:54:0092.6[facility] UjhpzgjEPXYDIFJQN2461-60-99 05:54:00* Test Item Value Reference Range Interpretation Comments MCH (test code = MCH) 30.7 pg 27.0-31.0 [facility] RlnmormMVIVBUGCYR1257-74-79 05:54:0033.1[facility] HermannHEMATOLOGY 2019-07-01 05:54:0012.2[facility] JpigboyKXSPRZOBBX2994-53-79 05:54:0021[facility] NdlgfmlQUMUOHIJHC8063-52-83 05:54:0012.4[facility] MczjcwvTNJBZKETWE9317-45-12 09:35:0055.9[facility] KkizztgGUPWVBGGGQ2507-07-32 09:35:0032.5[facility] ZPYLMBGEMV0764-13-69 09:35:007.0[facility] MitgdmtDWGUQCVSJO7175-38-21 09:35:004.2 [facility] VhetwnvNQCKDGTLZL9438-41-74 09:35:000.4[facility]annHEMATOLOGY 2019-06-30 09:35:002.7[facility] SvijzqcJEYVZMYTAN8364-73-07 09:35:001.6[facility] DgibnxrCSOCFDJMFB4216-13-84 09:35:000.3[facility] FbmaehtIHBTVJZTMZ6129-68-14 09:35:000.2[facility] HkwvsimQUIDQALQVG8575-82-55 09:35:004.8[facility] TUNQVOGHVN6213-19-26 09:35:003.49[facility] KhkcqxhNMTMUIAQRC4090-48-58 09:35:00 10.8[facility] XijptkcVJOYRKUPLI6646-16-27 09:35:0032.5[facility]annHEMATOLOGY 2019-06-30 09:35:0093.0[facility] IqpvxkdYUHYKLWKKT7699-58-14 09:35:00* Test Item Value Reference Range Interpretation Comments MCH (test code = MCH) 30.9 pg 27.0-31.0 [facility] NdrvehpWZAHICQBEO4240-36-43 09:35:0033.2[facility]annHEMATOLOGY 2019-06-30 09:35:0012.2[facility] EnjhvmnEOAEJTWAUT3679-49-25 09:35:0019[facility] JxkxsqzUIJMKGIUKZ7942-63-86 09:35:0011.8[facility] HermannANEMIA GLAVQ3390-90-43 23:50:60172Aiqqfaht HermannANEMIA TJJFV3339-83-51 23:50:0046.0[facility] ANEMIA WGLAO2952-74-63 23:50:03525Kscqrfdx HermannCHEM FYFHF6501-04-15 23:50:00 203[facility] HermannCHEM LCNCF7018-75-69 23:50:0078[facility]annCHEM PANEL 2019-06-28 23:50:0014[facility] HermannCHEM FDGAC6245-33-43 23:50:000.78[facility] HermannCHEM UXDCV0736-50-33 23:50:21889Dsnlbikl HermannCHEM GVRWK0820-42-23 23:50:003.5[facility] HermannCHEM TKTJF7222-51-07 23:50:41337Bzryuuuy HermannCHEM ZEAOL0218-67-71 23:50:0027[facility] HermannCHEM BWTAG7847-62-66 23:50:009.0 [facility]annCHEM XJTLZ3517-04-65 23:50:006.7[facility] HermannCHEM PANEL 2019-06-28 23:50:003.7[facility] HermannCHEM YMKXO2214-36-20 23:50:0015[facility]annCHEM ABTSJ5955-12-16 23:50:0013[facility] HermannCHEM RGHKA8147-89-29 23:50:78185Siifiezy HermannCHEM VYUZR3841-16-58 23:50:000.4[facility] HermannCHEM HURIE5302-59-26 23:50:0077[facility]annCHEM NZNTV2033-62-86 23:50:0014.5 [facility]annCHEM OFKBU9522-97-47 23:50:00* Test Item Value Reference Range Interpretation Comments B/C Ratio (test code = B/C Ratio) 18 1 6-25 [facility]annCHEM QUPIF2489-32-52 23:50:003.0[facility] HermannCHEM PANEL 2019-06-28 23:50:00* Test Item Value Reference Range Interpretation Comments A/G Ratio (test code = A/G Ratio) 1.2 1 0.7-1.6 [facility] MquukzoGJASHHUZAN5950-07-26 23:50:009.3[facility] HermannHEMATOLOGY 2019-06-28 23:50:003.77[facility] SzklxipVSENBAZGHF9125-21-05 23:50:0011.5[facility] QnwuumcJJJYIJQRJO2430-77-07 23:50:0035.1[facility] ZzfnbetWFDOJJRZMZ5498-71-76 23:50:0092.9[facility] MllcgcoLKBCNIHMEN7434-32-88 23:50:00* Test Item Value Reference Range Interpretation Comments MCH (test code = MCH) 30.6 pg 27.0-31.0 [facility] UcimlmwPXQHAULSSY0582-63-62 23:50:0032.9[facility] HermannHEMATOLOGY 2019-06-28 23:50:0012.4[facility] YvtmxyhJLBSFWPWZZ1660-49-83 23:50:0031[facility] NujrhiuHCINLMODVW8865-18-98 23:50:0015.5[facility] SggfzhmJZIOBJZHAG0182-56-09 23:50:0070.1[facility] BleobraBDYPQTWJQF5694-56-53 23:50:0022.0[facility] Jet EWGOZRSAXA5066-92-78 23:50:005.6[facility] TmnspivGJVQNDEGHT4824-93-17 23:50:002.0 [facility] UmcgkhxVGGBLKGPMM2190-26-26 23:50:000.3[facility] HermannHEMATOLOGY 2019-06-28 23:50:006.5[facility] SccikeyIIDZARJTNV4995-26-40 23:50:002.1[facility] XjkctwzIAMLPBMSGU7492-86-31 23:50:000.5[facility] XmkrbukJLREGJUSWZ7242-89-45 23:50:000.2[facility] YndvsmxMJABNTGEBT8389-30-58 23:50:17981Kyandymd Scroggins QLJUHTSDMP7398-75-04 23:50:00Negative *NA*(06/28/19 6:50 PM)[facility] WLBCISYVNQ2955-77-45 23:50:00Negative *NA*(06/28/19 6:50 PM)[facility] TOEORVCELR6312-70-73 23:50:00Negative *NA*(06/28/19 6:50 PM)[facility] OJCFLDEVHP4645-23-38 23:50:00Negative *NA*(06/28/19 6:50 PM)[facility] UBPEYWLSIS0052-89-11 23:50:00Negative *NA*(06/28/19 6:50 PM)[facility] QCKTX8816-89-19 23:50:48818Bowpcbcj TowrvevKVXZLYYYJY0114-20-83 01:46:0020 [facility] HermannBLOOD BANK DEUQANQ3480-17-50 20:54:00Positive 4(06/27/19 3:54 PM) [facility]annCHEM JPANY5002-69-04 20:54:34971Erjpfsez HermannCHEM PANEL 2019-06-27 20:54:0015[facility] HermannCHEM HDWPQ1956-14-08 20:54:000.79[facility] HermannCHEM EBGSX3445-78-69 20:54:63543Cigoywlp HermannCHEM HHWVR7659-63-11 20:54:004.0[facility] HermannCHEM VZGFQ0268-35-70 20:54:69631Rvxeqnhg HermannCHEM NWIOP8473-96-37 20:54:0026[facility] HermannCHEM HYISN1857-24-62 20:54:0010.5 [facility] HermannCHEM PECYA7975-78-44 20:54:0076[facility] HermannCHEM PANEL 2019-06-27 20:54:0015.0[facility] PryuhymIUOUNKUSLU8500-12-05 20:54:00* Test Item Value Reference Range Interpretation Comments INR (test code = INR) 0.99 1 0.85-1.17 [facility] DrbzjdrMZKVZWHGDC1898-39-45 20:54:00* Test Item Value Reference Range Interpretation Comments PT (test code = PT) 12.9 s 12.0-14.7 [facility] FtvpqwbNTREKMRQBI5934-24-91 20:54:00* Test Item Value Reference Range Interpretation Comments PTT (test code = PTT) 28.6 s 22.9-35.8 [facility] DivyznpFOPEAAXSZJ2617-02-98 20:54:00Normal (06/27/19 3:54 PM)[facility] KmquugnDYXTRMHCMH8301-16-10 20:54:00Normal (06/27/19 3:54 PM)[facility] (PORT[facility])2019-06-14 19:09:00 [place] [address] Patient Name: MOJGAN CUMMINGS MR #: [id number] : 1950 Age/Sex: 69/F Req #: [id number] Adm Physician: Ordered by: CAITLYN MOSS DOCTOR CHIROPRACTIC Report #: [id number] Location: Room/Bed: Procedure: [id number] DX /CHEST SINGLE (PORTABLE) Exam Date: 06/14/19 [...] 2. No consolidative p neumonia.. Signed by: Dr. Eric Lantigua D.O., M.M.M. on 06/14/2019 7:11 PM Dictated By: ERIC LANTIGUA DO 10 COPY TO: SMITH MOSS DOCTOR CHIROPRACTIC Bedside Neahdot5197-18-15 07:21:00* Test Item Value Reference Range Interpretation Comments Bedside Glucose (test code = 60684-7) 92 70-120 Meter ID: [id number] [facility] 2019-05-18 07:21:00* Test Item Value Reference Range Interpretation Comments Bedside Glucose (test code = 88781-3) 92 70-120 Meter ID: [id number] [facility] 2019-05-12 03:20:00* Test Item Value Reference Range Interpretation Comments Blood Culture (test code = 19340638) NO GROWTH AFTER 5 DAYS, FINAL REPORT [facility] Ymzchxt6451-09-50 03:20:00* Test Item Value Reference Range Interpretation Comments Blood Culture (test code = 96133859) NO GROWTH AFTER 5 DAYS, FINAL REPORT [facility] Gfkoaxu7234-98-96 03:20:00* Test Item Value Reference Range Interpretation Comments Blood Culture (test code = 94122452) NO GROWTH AFTER 5 DAYS, FINAL REPORT [facility] Wvozfpl8130-88-69 03:20:00* Test Item Value Reference Range Interpretation Comments Blood Culture (test code = 83166755) NO GROWTH AFTER 5 DAYS, FINAL REPORT [facility] Ecvscir0620-78-26 03:20:00* Test Item Value Reference Range Interpretation Comments Blood Culture (test code = 65334432) NO GROWTH AFTER 5 DAYS, FINAL REPORT [facility] Zohtsxk6896-63-28 15:58:00* Test Item Value Reference Range Interpretation Comments Bedside Glucose (test code = 62709-9) 100 70-120 Meter ID: [id number] TylerClostridium Difficile Toxin A & R7387-90-49 13:58:00* Test Item Value Reference Range Interpretation Comments Clostridium Difficile Toxin A & B (test code = 440226234) POSI TIVE NEGATIVE H Results called to KOBI MCCLOUD at 1358 on 05/10/19 by Mark Aguirre. RB [place].Results called to TORITO ARCOS in infection control at 1358 on 05/10/19 by Marc ofreedom Aguirre.Testing on stool aspirate specimens is outside motor vehicle representative claims since specimen type not validated on this assay.[facility] TylerClostridium Difficile Toxin A & U0679-62-99 13:58:00* Test Item Value Reference Range Interpretation Comments Clostridium Difficile Toxin A & B (test code = 618442903) POSI TIVE NEGATIVE H Results called to KOBI MCCLOUD at 1358 on 05/10/19 by Mark Aguirre. RB OK.Results called to TORITO ARCOS in infection control at 1358 on 05/10/19 by Marc ofreedom Aguirre.Testing on stool aspirate specimens is outside motor vehicle representative claims since specimen type not validated on this assay.[facility] TylerClostridium Difficile Toxin A & F9009-21-53 13:58:00* Test Item Value Reference Range Interpretation Comments Clostridium Difficile Toxin A & B (test code = 585441413) POSI TIVE NEGATIVE H Results called to KOBI MCCLOUD at 1358 on 05/10/19 by Heatehrcofreedom Aguirre. RB OK.Results called to TORITO ARCOS in infection control at 1358 on 05/10/19 by [facility] ofreedom Aguirre.Testing on stool aspirate specimens is outside motor vehicle representative claims since specimen type not validated on this assay.[facility] TylerClostridium Difficile Toxin A & T1640-33-31 13:58:00* Test Item Value Reference Range Interpretation Comments Clostridium Difficile Toxin A & B (test code = 640025323) POSI TIVE NEGATIVE H Results called to KOBI MCCLOUD at 1358 on 05/10/19 by Heathercofreedom Aguirre. RB OK.Results called to TORITO ARCOS in infection control at 1358 on 05/10/19 by [facility] ofreedom Aguirre.Testing on stool aspirate specimens is outside motor vehicle representative claims since specimen type not validated on this assay.[facility] TylerClostridium Difficile Toxin A & H1525-96-54 13:58:00* Test Item Value Reference Range Interpretation Comments Clostridium Difficile Toxin A & B (test code = 274184036) POSI TIVE NEGATIVE H Results called to KOBI MCCLOUD at 1358 on 05/10/19 by Heathercofreedom Aguirre. RB OK.Results called to TORITO ARCOS in infection control at 1358 on 05/10/19 by [facility] ofreedom Aguirre.Testing on stool aspirate specimens is outside motor vehicle representative claims since specimen type not validated on this assay.[facility] TylerClostridium Difficile Toxin A & E0555-78-17 13:58:00* Test Item Value Reference Range Interpretation Comments Clostridium Difficile Toxin A & B (test code = 790494448) POSI TIVE NEGATIVE H Results called to KOBI MCCLOUD at 1358 on 05/10/19 by Yacoob Carla. RB OK.Results called to TORITO ARCOS in infection control at 1358 on 05/10/19 by Marc ofreedom GuanCarla.Testing on stool aspirate specimens is outside motor vehicle representative claims since specimen type not validated on this assay.[facility] TylerFolate2019-08-22 11:24:00* Test Item Value Reference Range Interpretation Comments Folate (test code = 2284-8) 29.8 7.0-15.4 H [facility] TylerFolate2019-08-22 11:24:00* Test Item Value Reference Range Interpretation Comments Folate (test code = 2284-8) 29.8 7.0-15.4 H [facility] TylerFolate2019-08-22 11:24:00* Test Item Value Reference Range Interpretation Comments Folate (test code = 2284-8) 29.8 7.0-15.4 H [facility] TylerFolate2019-08-22 11:24:00* Test Item Value Reference Range Interpretation Comments Folate (test code = 2284-8) 29.8 7.0-15.4 H [facility] TylerFolate2019-08-22 11:24:00* Test Item Value Reference Range Interpretation Comments Folate (test code = 2284-8) 29.8 7.0-15.4 H [facility] TylerFolate2019-08-22 11:24:00* Test Item Value Reference Range Interpretation Comments Folate (test code = 2284-8) 29.8 7.0-15.4 H [facility] TylerVitamin B12 Ncltv6080-29-06 10:17:00* Test Item Value Reference Range Interpretation Comments Vitamin B12 Level (test code = 26176-2) 554 213-816 [facility] TylerVitamin B12 Fayrt9143-41-54 10:17:00* Test Item Value Reference Range Interpretation Comments Vitamin B12 Level (test code = 49059-9) 554 213-816 [facility] TylerVitamin B12 Pjcva0072-84-35 10:17:00* Test Item Value Reference Range Interpretation Comments Vitamin B12 Level (test code = 20262-4) 554 213-816 [facility] TylerFerritin2019-08-22 09:35:00* Test Item Value Reference Range Interpretation Comments Ferritin (test code = 2276-4) 600.24 4.63-204.00 H [facility] TylerFerritin2019-08-22 09:35:00* Test Item Value Reference Range Interpretation Comments Ferritin (test code = 2276-4) 600.24 4.63-204.00 H [facility] TylerFerritin2019-08-22 09:35:00* Test Item Value Reference Range Interpretation Comments Ferritin (test code = 2276-4) 600.24 4.63-204.00 H [facility] TylerDifferential Total Cells Counted 2019-05-10 07:53:00* Test Item Value Reference Range Interpretation Comments Differential Total Cells Counted (test code = Heather tial Total Cells Counted) 100 [facility] TylerNeutrophils % (Manual)2019-05-10 07:53:00 * Test Item Value Reference Range Interpretation Comments Neutrophils % (Manual) (test code = 33483-8) 59 40-74 [facility] TylerLymphocytes % (Manual)2019-05-10 07:53:00 * Test Item Value Reference Range Interpretation Comments Lymphocytes % (Manual) (test code = 737-7) 30 19-48 [facility] TylerMonocytes % (Manual)2019-05-10 07:53:00* Test Item Value Reference Range Interpretation Comments Monocytes % (Manual) (test code = 744-3) 7 3.4-9.0 [facility] TylerEosinophils % (Manual)2019-05-10 07:53:00 * Test Item Value Reference Range Interpretation Comments Eosinophils % (Manual) (test code = 714-6) 4 0-7 [facility] TylerPlatelet Ntzmcwsy2263-48-67 07:53:00* Test Item Value Reference Range Interpretation Comments Platelet Estimate (test code = 17344-6) MARKEDLY DECREASED [facility] TylerRed Cell Morphology Nendmnm6809-79-30 07:53:00* Test Item Value Reference Range Interpretation Comments Red Cell Morphology Comment (test code = 6742-1) NORMAL [facility] TylerDifferential Total Cells Counted 2019-05-10 07:53:00* Test Item Value Reference Range Interpretation Comments Differential Total Cells Counted (test code = Heather grayson Total Cells Counted) 100 [facility] TylerNeutrophils % (Manual)2019-05-10 07:53:00 * Test Item Value Reference Range Interpretation Comments Neutrophils % (Manual) (test code = 80047-1) 59 40-74 [facility] TylerLymphocytes % (Manual)2019-05-10 07:53:00 * Test Item Value Reference Range Interpretation Comments Lymphocytes % (Manual) (test code = 737-7) 30 - [facility] TylerMonocytes % (Manual)2019-05-10 07:53:00* Test Item Value Reference Range Interpretation Comments Monocytes % (Manual) (test code = 744-3) 7 3.4-9.0 [facility] TylerEosinophils % (Manual)2019-05-10 07:53:00 * Test Item Value Reference Range Interpretation Comments Eosinophils % (Manual) (test code = 714-6) 4 0-7 [facility] TylerPlatelet Nxlzqfsc1174-96-93 07:53:00* Test Item Value Reference Range Interpretation Comments Platelet Estimate (test code = 15829-4) MARKEDLY DECREASED [facility] TylerRed Cell Morphology Wxpzrul6806-89-65 07:53:00* Test Item Value Reference Range Interpretation Comments Red Cell Morphology Comment (test code = 6742-1) NORMAL [facility] TylerLymphocytes % (Manual)2019-05-10 07:53:00 * Test Item Value Reference Range Interpretation Comments Lymphocytes % (Manual) (test code = 737-7) 30 - [facility] TylerLymphocytes % (Manual)2019-05-10 07:53:00 * Test Item Value Reference Range Interpretation Comments Lymphocytes % (Manual) (test code = 737-7) - [facility] TylerLymphocytes % (Manual)2019-05-10 07:53:00 * Test Item Value Reference Range Interpretation Comments Lymphocytes % (Manual) (test code = 737-7) 30 - [facility] TylerLymphocytes % (Manual)2019-05-10 07:53:00 * Test Item Value Reference Range Interpretation Comments Lymphocytes % (Manual) (test code = 737-7) 30 - [facility] TylerClostridium difficile A and B toxin assay 2019-05-10 07:50:00* Test Item Value Reference Range Interpretation Comments Clostridium Difficile Toxin A & B (test code = 682190093) POSI TIVE NEGATIVE Results called to KOBI MCCLOUD at 1358 on 05/10/19 by Aorato. RB OK.Results called to TORITO ARCOS in infection control at 1358 on 05/10/19 by Marc oKaesu.Testing on stool aspirate specimens is outside motor vehicle representative claims since specimen type not validated on this assay.[facility] TylerClostridium difficile A and B toxin ezjwn4169-79-74 07:50:00* Test Item Value Reference Range Interpretation Comments Clostridium Difficile Toxin A & B (test code = 682907005) POSI TIVE NEGATIVE Results called to KOBI MCCLOUD at 1358 on 05/10/19 by Aorato. RB OK.Results called to TORITO ARCOS in infection control at 1358 on 05/10/19 by Marc oKaesu.Testing on stool aspirate specimens is outside motor vehicle representative claims since specimen type not validated on this assay.[facility] Dmuqftx3911-02-98 06:51:00* Test Item Value Reference Range Interpretation Comments Sputum Culture (test code = 624-7) Organism: STAPHYLOCOCCUS AUREUS- MRSA [facility] Rqertjs7790-17-57 06:51:00* Test Item Value Reference Range Interpretation Comments Sputum Culture (test code = 624-7) Organism: STAPHYLOCOCCUS AUREUS- MRSA [facility] Apttoup9301-55-22 06:51:00* Test Item Value Reference Range Interpretation Comments Sputum Culture (test code = 624-7) No Result Data Provided [facility] Mnowkhx2642-08-40 06:51:00* Test Item Value Reference Range Interpretation Comments Sputum Culture (test code = 624-7) No Result Data Provided [facility] Kxpkcph9822-53-08 06:51:00* Test Item Value Reference Range Interpretation Comments Sputum Culture (test code = 624-7) No Result Data Provided [facility] Lgxezyp1948 06:51:00* Test Item Value Reference Range Interpretation Comments Sputum Culture (test code = 624-7) No Result Data Provided [facility] Station[facility] Eptky1732-39-06 04:04:00* Test Item Value Reference Range Interpretation Comments Sodium Level (test code = 2951-2) 133 136-145 L [facility] TylerPotassium Lptoh5951-76-48 04:04:00* Test Item Value Reference Range Interpretation Comments Potassium Level (test code = 2823-3) 3.6 3.5-5.1 [facility] TylerChloride Ghvrd8549-09-76 04:04:00* Test Item Value Reference Range Interpretation Comments Chloride Level (test code = 2075-0) 98 98-107 [facility] TylerCarbon Dioxide Wroqe0421-74-21 04:04:00* Test Item Value Reference Range Interpretation Comments Carbon Dioxide Level (test code = 2028-9) 27 22-29 [facility] TylerAnion Cbu8253-76-44 04:04:00* Test Item Value Reference Range Interpretation Comments Anion Gap (test code = 92482-4) 11.6 8-16 [facility] TylerBlood Urea Zynemwuu5898-63-40 04:04:00* Test Item Value Reference Range Interpretation Comments Blood Urea Nitrogen (test code = 3094-0) 18 7-26 [facility] TylerCreatinine2019-08-22 04:04:00* Test Item Value Reference Range Interpretation Comments Creatinine (test code = 2160-0) 0.71 0.57-1.11 [facility] TylerBUN/Creatinine Dejks9230-08-20 04:04:00* Test Item Value Reference Range Interpretation Comments BUN/Creatinine Ratio (test code = 3097-3) 25 6-25 [facility] TylerEstimat Glomerular Filtration Rate 2019-05-10 04:04:00* Test Item Value Reference Range Interpretation Comments Estimat Glomerular Filtration Rate (test code = 474557707) > 60 >60 Ranges were taken from the National Kidney Disease Education Program and the [facility] literature.Reference ranges:60 or greater: Zmdldu16-70 ( for 3 consecutive months): Chronic kidney disease 15 or less: Kidney failureCHRISTUS Mother Frances Hospital – TylerGlucose Elguj4321-47-90 04:04:00* Test Item Value Reference Range Interpretation Comments Glucose Level (test code = SML5254) 86 74-118 [facility] TylerCalcium Okdas4397-20-76 04:04:00* Test Item Value Reference Range Interpretation Comments Calcium Level (test code = 81202-2) 9.9 8.4-10.2 [facility] Stationodium Xsbxb3199-33-34 04:04:00* Test Item Value Reference Range Interpretation Comments Sodium Level (test code = 2951-2) 133 136-145 L [facility] TylerPotassium Xcnvd7158-03-03 04:04:00* Test Item Value Reference Range Interpretation Comments Potassium Level (test code = 2823-3) 3.6 3.5-5.1 [facility] TylerChloride Jrpze7884-91-66 04:04:00* Test Item Value Reference Range Interpretation Comments Chloride Level (test code = 2075-0) 98 98-107 [facility] TylerCarbon Dioxide Yssrk7333-56-32 04:04:00* Test Item Value Reference Range Interpretation Comments Carbon Dioxide Level (test code = 2028-9) 27 22-29 [facility] TylerAnion Cgt7383-63-84 04:04:00* Test Item Value Reference Range Interpretation Comments Anion Gap (test code = 86463-4) 11.6 8-16 [facility] TylerBlood Urea Yqmndpqg0573-76-48 04:04:00* Test Item Value Reference Range Interpretation Comments Blood Urea Nitrogen (test code = 3094-0) 18 7-26 [facility] TylerCreatinine2019-08-22 04:04:00* Test Item Value Reference Range Interpretation Comments Creatinine (test code = 2160-0) 0.71 0.57-1.11 [facility] TylerBUN/Creatinine Yxwpq6487-72-21 04:04:00* Test Item Value Reference Range Interpretation Comments BUN/Creatinine Ratio (test code = 3097-3) 25 6-25 [facility] TylerEstimat Glomerular Filtration Rate 2019-05-10 04:04:00* Test Item Value Reference Range Interpretation Comments Estimat Glomerular Filtration Rate (test code = 948943504) > 60 >60 Ranges were taken from the National Kidney Disease Education Program and the [facility] Kidney Foundation literature.Reference ranges:60 or greater: Yuxmwv40-42 ( for 3 consecutive months): Chronic kidney disease 15 or less: Kidney failureCHRISTUS Mother Frances Hospital – TylerGlucose Rascf3113-36-62 04:04:00* Test Item Value Reference Range Interpretation Comments Glucose Level (test code = GRB9989) 86 74-118 [facility] TylerCalcium Ykrkd7767-90-05 04:04:00* Test Item Value Reference Range Interpretation Comments Calcium Level (test code = 85387-2) 9.9 8.4-10.2 [facility] TylerWhite Blood Scmcj0989-20-09 03:42:00* Test Item Value Reference Range Interpretation Comments White Blood Count (test code = 6690-2) 5.79 4.8-10.8 [facility] TylerRed Blood Ufkdq6873-26-80 03:42:00* Test Item Value Reference Range Interpretation Comments Red Blood Count (test code = 789-8) 3.50 3.6-5.1 L [facility] TylerHemoglobin2019-08-22 03:42:00* Test Item Value Reference Range Interpretation Comments Hemoglobin (test code = 80077-7) 10.8 12.0-16.0 L [facility] TylerHematocrit2019-08-22 03:42:00* Test Item Value Reference Range Interpretation Comments Hematocrit (test code = 4544-3) 32.9 34.2-44.1 L [facility] TylerMean Corpuscular Xlwbyz5967-39-76 03:42:00* Test Item Value Reference Range Interpretation Comments Mean Corpuscular Volume (test code = 787-2) 94.0 81-99 [facility] TylerMean Corpuscular Cpjrlydain3148-55-58 03:42:00* Test Item Value Reference Range Interpretation Comments Mean Corpuscular Hemoglobin (test code = 785-6) 30.9 28-32 [facility] Tyler[facility] Corpuscular Hemoglobin Concent 2019-05-10 03:42:00* Test Item Value Reference Range Interpretation Comments Mean Corpuscular Hemoglobin Concent (test code = 786-4) 32.8 31-35 [facility] TylerRed Cell Distribution Nxtie1942-58-11 03:42:00* Test Item Value Reference Range Interpretation Comments Red Cell Distribution Width (test code = 03543-0) 13.2 11.7 -14.4 [facility] TylerPlatelet Utrsp1271-33-53 03:42:00* Test Item Value Reference Range Interpretation Comments Platelet Count (test code = 777-3) 29 140-360 LL Results repeated and called to [KIRIT ZHENG RN] at 0341 on 05/10/19 by Chantell Quigley. Read back and verified.[facility] Neutrophils (%) (Auto)2019-05-10 03:42:00* Test Item Value Reference Range Interpretation Comments Neutrophils (%) (Auto) (test code = 91290-9) 61.8 38.7-80.0 [facility] TylerLymphocytes (%) (Auto)2019-05-10 03:42:00 * Test Item Value Reference Range Interpretation Comments Lymphocytes (%) (Auto) (test code = 736-9) 24.0 18.0-39.1 [facility] TylerMonocytes (%) (Auto)2019-05-10 03:42:00* Test Item Value Reference Range Interpretation Comments Monocytes (%) (Auto) (test code = 5905-5) 8.5 4.4-11.3 [facility] TylerEosinophils (%) (Auto)2019-05-10 03:42:00 * Test Item Value Reference Range Interpretation Comments Eosinophils (%) (Auto) (test code = 713-8) 5.2 0.0-6.0 [facility] TylerBasophils (%) (Auto)2019-05-10 03:42:00* Test Item Value Reference Range Interpretation Comments Basophils (%) (Auto) (test code = 706-2) 0.3 0.0-1.0 [facility] TylerIM GRANULOCYTES %2019-05-10 03:42:00* Test Item Value Reference Range Interpretation Comments IM GRANULOCYTES % (test code = IM GRANULOCYTES %) 0.2 0.0- 1.0 [facility] TylerNeutrophils # (Auto)2019-05-10 03:42:00* Test Item Value Reference Range Interpretation Comments Neutrophils # (Auto) (test code = 751-8) 3.6 2.1-6.9 [facility] TylerLymphocytes # (Auto)2019-05-10 03:42:00* Test Item Value Reference Range Interpretation Comments Lymphocytes # (Auto) (test code = 73446-1) 1.4 1.0-3.2 [facility] TylerMonocytes # (Auto)2019-05-10 03:42:00* Test Item Value Reference Range Interpretation Comments Monocytes # (Auto) (test code = 742-7) 0.5 0.2-0.8 [facility] TylerEosinophils # (Auto)2019-05-10 03:42:00* Test Item Value Reference Range Interpretation Comments Eosinophils # (Auto) (test code = 711-2) 0.3 0.0-0.4 [facility] TylerBasophils # (Auto)2019-05-10 03:42:00* Test Item Value Reference Range Interpretation Comments Basophils # (Auto) (test code = 704-7) 0.0 0.0-0.1 [facility] TylerAbsolute Immature Granulocyte (auto 2019-05-10 03:42:00* Test Item Value Reference Range Interpretation Comments Absolute Immature Granulocyte (auto (melina t code = Absolute Immature Granulocyte (auto) 0.01 0-0.1 [facility] TylerWhite Blood Pjivj5244-64-21 03:42:00* Test Item Value Reference Range Interpretation Comments White Blood Count (test code = 6690-2) 5.79 4.8-10.8 [facility] TylerRed Blood Opbee8627-80-49 03:42:00* Test Item Value Reference Range Interpretation Comments Red Blood Count (test code = 789-8) 3.50 3.6-5.1 L [facility] TylerHemoglobin2019-08-22 03:42:00* Test Item Value Reference Range Interpretation Comments Hemoglobin (test code = 41813-0) 10.8 12.0-16.0 L [facility] TylerHematocrit2019-08-22 03:42:00* Test Item Value Reference Range Interpretation Comments Hematocrit (test code = 4544-3) 32.9 34.2-44.1 L [facility] TylerMean Corpuscular Azdjzx1956-12-25 03:42:00* Test Item Value Reference Range Interpretation Comments Mean Corpuscular Volume (test code = 787-2) 94.0 81-99 [facility] TylerMean Corpuscular Oeuyieotzh4653-57-08 03:42:00* Test Item Value Reference Range Interpretation Comments Mean Corpuscular Hemoglobin (test code = 785-6) 30.9 28-32 [facility] 2019-05-10 03:42:00* Test Item Value Reference Range Interpretation Comments Mean Corpuscular Hemoglobin Concent (test code = 786-4) 32.8 31-35 [facility] TylerRed Cell Distribution Facob7432-98-54 03:42:00* Test Item Value Reference Range Interpretation Comments Red Cell Distribution Width (test code = 14017-9) 13.2 11.7 -14.4 [facility] TylerPlatelet Qmdpz3185-15-27 03:42:00* Test Item Value Reference Range Interpretation Comments Platelet Count (test code = 777-3) 29 140-360 LL Results repeated and called to [KIRIT ZHENG RN] at 0341 on 05/10/19 by Chantell Quigley. Read back and verified.[facility] Neutrophils (%) (Auto)2019-05-10 03:42:00* Test Item Value Reference Range Interpretation Comments Neutrophils (%) (Auto) (test code = 69706-4) 61.8 38.7-80.0 [facility] TylerLymphocytes (%) (Auto)2019-05-10 03:42:00 * Test Item Value Reference Range Interpretation Comments Lymphocytes (%) (Auto) (test code = 736-9) 24.0 18.0-39.1 [facility] TylerMonocytes (%) (Auto)2019-05-10 03:42:00* Test Item Value Reference Range Interpretation Comments Monocytes (%) (Auto) (test code = 5905-5) 8.5 4.4-11.3 [facility] TylerEosinophils (%) (Auto)2019-05-10 03:42:00 * Test Item Value Reference Range Interpretation Comments Eosinophils (%) (Auto) (test code = 713-8) 5.2 0.0-6.0 [facility] TylerBasophils (%) (Auto)2019-05-10 03:42:00* Test Item Value Reference Range Interpretation Comments Basophils (%) (Auto) (test code = 706-2) 0.3 0.0-1.0 [facility] TylerIM GRANULOCYTES %2019-05-10 03:42:00* Test Item Value Reference Range Interpretation Comments IM GRANULOCYTES % (test code = IM GRANULOCYTES %) 0.2 0.0- 1.0 [facility] TylerNeutrophils # (Auto)2019-05-10 03:42:00* Test Item Value Reference Range Interpretation Comments Neutrophils # (Auto) (test code = 751-8) 3.6 2.1-6.9 [facility] TylerLymphocytes # (Auto)2019-05-10 03:42:00* Test Item Value Reference Range Interpretation Comments Lymphocytes # (Auto) (test code = 51217-6) 1.4 1.0-3.2 [facility] TylerMonocytes # (Auto)2019-05-10 03:42:00* Test Item Value Reference Range Interpretation Comments Monocytes # (Auto) (test code = 742-7) 0.5 0.2-0.8 [facility] TylerEosinophils # (Auto)2019-05-10 03:42:00* Test Item Value Reference Range Interpretation Comments Eosinophils # (Auto) (test code = 711-2) 0.3 0.0-0.4 [facility] TylerBasophils # (Auto)2019-05-10 03:42:00* Test Item Value Reference Range Interpretation Comments Basophils # (Auto) (test code = 704-7) 0.0 0.0-0.1 [facility] TylerAbsolute Immature Granulocyte (auto 2019-05-10 03:42:00* Test Item Value Reference Range Interpretation Comments Absolute Immature Granulocyte (auto (melina t code = Absolute Immature Granulocyte (auto) 0.01 0-0.1 [facility] TylerBlood Bexsebs0115-76-76 03:20:00* Test Item Value Reference Range Interpretation Comments Blood Culture (test code = 59911502) NO GROWTH AFTER 72 HOURS [facility] TylerManual blood lymphocytes/100 leukocytes 2019-05-10 03:00:00* Test Item Value Reference Range Interpretation Comments Lymphocytes % (Manual) (test code = 737-7) [facility] Stationerum or plasma folate measurement (mass/volume)2019-05-10 03:00:00* Test Item Value Reference Range Interpretation Comments Folate (test code = 2284-8) 29.8 7.0-15.4 [facility] TylerManual blood lymphocytes/100 leukocytes 2019-05-10 03:00:00* Test Item Value Reference Range Interpretation Comments Lymphocytes % (Manual) (test code = 737-7) 30 [facility] Stationerum or plasma folate measurement (mass/volume)2019-05-10 03:00:00* Test Item Value Reference Range Interpretation Comments Folate (test code = 2284-8) 29.8 7.0-15.4 [facility] TylerMODIFIED BA. MYSKFOY2863-47-55 16:13:00 [place] [address] Patient Name: MOJGAN CUMMINGS MR #: [id number] : 1950 Age/Sex: 69/F Req #: [id number] Adm Physician: ILAN STEIN MD Ordered by: Pilar Simeon DOCTOR CHIROPRACTIC Report #: [id number] Location: MED/SURG2 Room/Bed: [facility] Procedure: [id number] DX /MODIFIED BA. SWALLOW Exam Date: 05/09/19 Exam Time: 1030 REPORT STATUS: Signed M odified barium swallow, 05/09/2019. History: Aspiration. Fluoro time : 2.5 min. Dose: 13.2 mGy (WALE) Technique: Fluoroscopy was performed by phlebotomy support tech. A radiologist was not present for exam. Fluoroscopic observati on and imaging of the oral cavity, oropharynx, and hypopharynx was performed i n the lateral projection during swallowing of liquids and solids, administered by speech pathology. See speech pathologist report for findings. Signed by: Caitlyn Burns on 05/09/2019 4:13 PM Dictated By: CAITLYN BURNS MD Gem ctronically Signed By: CAITLYN BURNS MD on 05/09/19 1613 Transcribed By: ANA Aburto on 05/09/19 1613 COPY TO: PILAR SIMEON NP US ABDOMEN ETNAPVZW4708-57-34 15:35:00 [place] [address] Patient Name: MOJGAN CUMMINGS MR #: [id number] : 1950 Age/Sex: 69/F Req #: [id number] Adm Physician: ILAN STEIN MD Ordered by: MARK ANTHONY KERNS MD Report #: [id number] Location: MED/SURG2 Room/Bed: 203 Procedure: [id number] US/US ABDOMEN COMPLETE Exam Date: 05/09/19 Exam Time: 1452 REPORT STATUS: Signed Abdom inal ultrasound. History: Hepatosplenomegaly. Comparison: Prior ult rasound 08/13/2018. Discussion: Transverse and longitudinal images of the a bdomen were obtained demonstrating a liver of normal [...] 3:45 PM Dictated By: CAITLYN BURNS MD [id number] Transcribed By: BAMBI on 05/09/19 1545 COPY TO: MARK ANTHONY KERNS MD Blood Culture 2019-05-09 15:12:00* Test Item Value Reference Range Interpretation Comments Blood Culture (test code = 600-7) Organism: STAPHYLOCOCCUS SP COAG NEG [facility]2019-08-21 15:12:00* Test Item Value Reference Range Interpretation Comments Blood Culture (test code = 600-7) Organism: STAPHYLOCOCCUS SP COAG NEG [facility]2019-08-21 15:12:00* Test Item Value Reference Range Interpretation Comments Blood Culture (test code = 600-7) No Result Data Provided [facility]2019-08-21 15:12:00* Test Item Value Reference Range Interpretation Comments Blood Culture (test code = 600-7) No Result Data Provided [facility]2019-08-21 15:12:00* Test Item Value Reference Range Interpretation Comments Blood Culture (test code = 600-7) No Result Data Provided [facility]2019-08-21 15:12:00* Test Item Value Reference Range Interpretation Comments Blood Culture (test code = 600-7) No Result Data Provided [facility]2019-08-21 05:44:00* Test Item Value Reference Range Interpretation Comments Urine Culture (test code = 630-4) Organism: ESCHERICHIA COLI [facility]2019-08-21 05:44:00* Test Item Value Reference Range Interpretation Comments Urine Culture (test code = 630-4) Organism: ESCHERICHIA COLI [facility]2019-08-21 05:44:00* Test Item Value Reference Range Interpretation Comments Urine Culture (test code = 630-4) No Result Data Provided [facility]2019-08-21 05:44:00* Test Item Value Reference Range Interpretation Comments Urine Culture (test code = 630-4) No Result Data Provided [facility]2019-08-21 05:44:00* Test Item Value Reference Range Interpretation Comments Urine Culture (test code = 630-4) No Result Data Provided [facility] TylerUrine Isptcnb3884-03-80 05:44:00* Test Item Value Reference Range Interpretation Comments Urine Culture (test code = 630-4) No Result Data Provided [facility] TylerMagnesium Xgxqt1202-80-19 01:34:00* Test Item Value Reference Range Interpretation Comments Magnesium Level (test code = 27696-0) 1.6 1.3-2.1 [facility] TylerMagnesium Hajpd2678-79-00 01:34:00* Test Item Value Reference Range Interpretation Comments Magnesium Level (test code = 60867-2) 1.6 1.3-2.1 [facility] TylerThyroid Stimulating Hormone (TSH) 2019-05-08 06:36:00* Test Item Value Reference Range Interpretation Comments Thyroid Stimulating Hormone (TSH) (test code = 03456-0) 1.678 0.350-4.940 [facility] TylerThyroid Stimulating Hormone (TSH) 2019-05-08 06:36:00* Test Item Value Reference Range Interpretation Comments Thyroid Stimulating Hormone (TSH) (test code = 35760-3) 1.678 0.350-4.940 [facility] TylerThyroid Stimulating Hormone (TSH) 2019-05-08 06:36:00* Test Item Value Reference Range Interpretation Comments Thyroid Stimulating Hormone (TSH) (test code = 79268-5) 1.678 0.350-4.940 [facility] TylerThyroid Stimulating Hormone (TSH) 2019-05-08 06:36:00* Test Item Value Reference Range Interpretation Comments Thyroid Stimulating Hormone (TSH) (test code = 84339-5) 1.678 0.350-4.940 [facility] TylerThyroid Stimulating Hormone (TSH) 2019-05-08 06:36:00* Test Item Value Reference Range Interpretation Comments Thyroid Stimulating Hormone (TSH) (test code = 41588-8) 1.678 0.350-4.940 [facility] TylerThyroid Stimulating Hormone (TSH) 2019-05-08 06:36:00* Test Item Value Reference Range Interpretation Comments Thyroid Stimulating Hormone (TSH) (test code = 93686-6) 1.678 0.350-4.940 [facility] TylerPhosphorus Loqkg3627-37-59 06:11:00* Test Item Value Reference Range Interpretation Comments Phosphorus Level (test code = LME1699) 2.8 2.3-4.7 [facility] TylerTotal Wajovykuq5937-94-77 06:11:00* Test Item Value Reference Range Interpretation Comments Total Bilirubin (test code = 1975-2) 0.3 0.2-1.2 [facility] TylerAspartate Amino Transf (AST/SGOT) 2019-05-08 06:11:00* Test Item Value Reference Range Interpretation Comments Aspartate Amino Transf (AST/SGOT) (test code = Aspartate Amino Transf (AST/SGOT)) 13 5-34 [facility] TylerAlanine Aminotransferase (ALT/SGPT) 2019-05-08 06:11:00* Test Item Value Reference Range Interpretation Comments Alanine Aminotransferase (ALT/SGPT) (test code = 1742-6) 10 0-55 [facility] TylerTotal Rpokmvm1645-42-76 06:11:00* Test Item Value Reference Range Interpretation Comments Total Protein (test code = 2885-2) 6.0 6.5-8.1 L [facility] TylerAlbumin2019-08-20 06:11:00* Test Item Value Reference Range Interpretation Comments Albumin (test code = 1751-7) 3.3 3.5-5.0 L [facility] TylerGlobulin2019-08-20 06:11:00* Test Item Value Reference Range Interpretation Comments Globulin (test code = 35993-5) 2.7 2.3-3.5 [facility] TylerAlbumin/Globulin Xgwyv1815-93-54 06:11:00 * Test Item Value Reference Range Interpretation Comments Albumin/Globulin Ratio (test code = 1759-0) 1.2 0.8-2.0 [facility] TylerAlkaline Xhrefcpsksb7037-71-32 06:11:00* Test Item Value Reference Range Interpretation Comments Alkaline Phosphatase (test code = 6768-6) 90 40-150 [facility] TylerPhosphorus Oguys5656-51-29 06:11:00* Test Item Value Reference Range Interpretation Comments Phosphorus Level (test code = ASN0075) 2.8 2.3-4.7 [facility] TylerTotal Cajfzvklz9336-53-40 06:11:00* Test Item Value Reference Range Interpretation Comments Total Bilirubin (test code = 1975-2) 0.3 0.2-1.2 [facility] TylerAspartate Amino Transf (AST/SGOT) 2019-05-08 06:11:00* Test Item Value Reference Range Interpretation Comments Aspartate Amino Transf (AST/SGOT) (test code = Aspartate Amino Transf (AST/SGOT)) 13 5-34 [facility] TylerAlanine Aminotransferase (ALT/SGPT) 2019-05-08 06:11:00* Test Item Value Reference Range Interpretation Comments Alanine Aminotransferase (ALT/SGPT) (test code = 1742-6) 10 0-55 [facility] TylerTotal Crwumyg9606-41-73 06:11:00* Test Item Value Reference Range Interpretation Comments Total Protein (test code = 2885-2) 6.0 6.5-8.1 L [facility] TylerAlbumin2019-08-20 06:11:00* Test Item Value Reference Range Interpretation Comments Albumin (test code = 1751-7) 3.3 3.5-5.0 L [facility] TylerGlobulin2019-08-20 06:11:00* Test Item Value Reference Range Interpretation Comments Globulin (test code = 78381-7) 2.7 2.3-3.5 [facility] TylerAlbumin/Globulin Klbrh3772-99-30 06:11:00 * Test Item Value Reference Range Interpretation Comments Albumin/Globulin Ratio (test code = 1759-0) 1.2 0.8-2.0 [facility] TylerAlkaline Bxhrwlihdpd5129-78-87 06:11:00* Test Item Value Reference Range Interpretation Comments Alkaline Phosphatase (test code = 6768-6) 90 40-150 [facility] Stationerum or plasma thyrotropin measurement by detection limit <= 0.005 miu/l (units/volume)2019-05-08 05:30:00* Test Item Value Reference Range Interpretation Comments Thyroid Stimulating Hormone (TSH) (test code = 72471-0) 1.678 0.350-4.940 [facility] Stationerum or plasma thyrotropin measurement by detection limit <= 0.005 miu/l (units/volume)2019-05-08 05:30:00* Test Item Value Reference Range Interpretation Comments Thyroid Stimulating Hormone (TSH) (test code = 31938-2) 1.678 0.350-4.940 [facility] TylerHemoglobin A1c Nsigbkz5967-22-00 05:26:00 * Test Item Value Reference Range Interpretation Comments Hemoglobin A1c Percent (test code = Hemoglobin A1c Percent) 4.6 4.0-7.0 [facility] TylerHemoglobin A1c Vfxbtdg1042-48-47 05:26:00 * Test Item Value Reference Range Interpretation Comments Hemoglobin A1c Percent (test code = Hemoglobin A1c Percent) 4.6 4.0-7.0 [facility] TylerHemoglobin A1c Hmmwimr8020-84-95 05:26:00 * Test Item Value Reference Range Interpretation Comments Hemoglobin A1c Percent (test code = Hemoglobin A1c Percent) 4.6 4.0-7.0 [facility] TylerHemoglobin A1c Oyxerro2730-21-47 05:26:00 * Test Item Value Reference Range Interpretation Comments Hemoglobin A1c Percent (test code = Hemoglobin A1c Percent) 4.6 4.0-7.0 [facility] TylerHemoglobin A1c Vliccaf9716-44-29 05:26:00 * Test Item Value Reference Range Interpretation Comments Hemoglobin A1c Percent (test code = Hemoglobin A1c Percent) 4.6 4.0-7.0 [facility] TylerHemoglobin A1c Ftmlmbw4079-91-85 05:26:00 * Test Item Value Reference Range Interpretation Comments Hemoglobin A1c Percent (test code = Hemoglobin A1c Percent) 4.6 4.0-7.0 [facility] TylerFluoroscopic procedure less than one hour alycrusq8755-41-69 04:20:00* Test Item Value Reference Range Interpretation Comments Hemoglobin A1c Percent (test code = Hemoglobin A1c Percent) 4.6 4.0-7.0 [facility] TylerFluoroscopic procedure less than one hour mzdozvxi9094-08-88 04:20:00* Test Item Value Reference Range Interpretation Comments Hemoglobin A1c Percent (test code = Hemoglobin A1c Percent) 4.6 4.0-7.0 [facility] TylerCreatine Fcjjxk0138-79-57 19:53:00* Test Item Value Reference Range Interpretation Comments Creatine Kinase (test code = 2157-6) 23 29-168 L [facility] TylerCreatine Iztbpi7259-85-32 19:53:00* Test Item Value Reference Range Interpretation Comments Creatine Kinase (test code = 2157-6) 23 29-168 L [facility] TylerCreatine Uhdcta8153-24-05 19:53:00* Test Item Value Reference Range Interpretation Comments Creatine Kinase (test code = 2157-6) 23 29-168 L [facility] TylerCreatine Gkaxam4177-67-12 19:53:00* Test Item Value Reference Range Interpretation Comments Creatine Kinase (test code = 2157-6) 23 29-168 L [facility] TylerCreatine Prgkdy6442-05-57 19:53:00* Test Item Value Reference Range Interpretation Comments Creatine Kinase (test code = 2157-6) 23 29-168 L [facility] TylerCreatine Kinase PY6684-38-22 19:49:00* Test Item Value Reference Range Interpretation Comments Creatine Kinase MB (test code = 77168-5) 0.40 0-5.0 [facility] TylerTroponin X9090-22-29 19:49:00* Test Item Value Reference Range Interpretation Comments Troponin I (test code = ZNB0536) < 0.001 0-0.300 [facility] TylerCreatine Kinase OZ4299-16-46 19:49:00* Test Item Value Reference Range Interpretation Comments Creatine Kinase MB (test code = 98952-6) 0.40 0-5.0 [facility] TylerTrmel[facility] Y2745-42-34 19:49:00* Test Item Value Reference Range Interpretation Comments Troponin I (test code = OCJ5178) < 0.001 0-0.300 [facility] TylerCreatine Kinase PF2223-28-22 19:49:00* Test Item Value Reference Range Interpretation Comments Creatine Kinase MB (test code = 94720-8) 0.40 0-5.0 [place] [address]9632019-08-19 19:49:00* Test Item Value Reference Range Interpretation Comments Troponin I (test code = MER6976) < 0.001 0-0.300 [facility] TylerCreatine Kinase FU5607-50-02 19:49:00* Test Item Value Reference Range Interpretation Comments Creatine Kinase MB (test code = 52155-5) 0.40 0-5.0 [place] [id number] 19:49:00* Test Item Value Reference Range Interpretation Comments Troponin I (test code = MNS5032) < 0.001 0-0.300 [facility] TylerCreatine Kinase XM3926-09-32 19:49:00* Test Item Value Reference Range Interpretation Comments Creatine Kinase MB (test code = 61794-8) 0.40 0-5.0 [place] 99632019-08-19 19:49:00* Test Item Value Reference Range Interpretation Comments Troponin I (test code = XAL8117) < 0.001 0-0.300 [facility] TylerBacteria identification in sputum by respiratory xhvfihy5466-60-57 05:06:00* Test Item Value Reference Range Interpretation Comments Sputum Culture (test code = 624-7) STAPHYLOCOCCUS AUREUS-MRSA [facility] TylerBacteria identification in sputum by respiratory dwfbqfz7748-39-42 05:06:00* Test Item Value Reference Range Interpretation Comments Sputum Culture (test code = 624-7) STAPHYLOCOCCUS AUREUS-MRSA [facility] TylerB-Type Natriuretic Mpwvvxu0851-52-91 03:57:00* Test Item Value Reference Range Interpretation Comments B-Type Natriuretic Peptide (test code = 70308-9) 84.4 0-100 [facility] TylerB-Type Natriuretic Maeivkg5157-90-01 03:57:00* Test Item Value Reference Range Interpretation Comments B-Type Natriuretic Peptide (test code = 66963-1) 84.4 0-100 [facility] TylerB-Type Natriuretic Zmikpus2975-84-48 03:57:00* Test Item Value Reference Range Interpretation Comments B-Type Natriuretic Peptide (test code = 48232-2) 84.4 0-100 [facility] TylerB-Type Natriuretic Zacjeda2002-41-89 03:57:00* Test Item Value Reference Range Interpretation Comments B-Type Natriuretic Peptide (test code = 95197-1) 84.4 0-100 [facility] TylerLipase2019-08-19 03:46:00* Test Item Value Reference Range Interpretation Comments Lipase (test code = 3040-3) < 4 8-78 L [facility] TylerLipase2019-08-19 03:46:00* Test Item Value Reference Range Interpretation Comments Lipase (test code = 3040-3) < 4 8-78 [facility]* Test Item Value Reference Range Interpretation Comments Lipase (test code = 3040-3) < 4 8-78 L [facility] 03:46:00* Test Item Value Reference Range Interpretation Comments Lipase (test code = 3040-3) < 4 8-78 L [facility] 03:46:00* Test Item Value Reference Range Interpretation Comments Lipase (test code = 3040-3) < 4 8-78 L [facility] 03:46:00* Test Item Value Reference Range Interpretation Comments Lipase (test code = 3040-3) < 4 8-78 L [facility] [id number] 03:45:00* Test Item Value Reference Range Interpretation Comments Urine WBC (test code = 5821-4) 21-50 0-5 H [facility] [id number] 03:45:00* Test Item Value Reference Range Interpretation Comments Urine RBC (test code = 82098-2) 6-10 0-5 H [facility] Ckbpjmex8635-56-16 03:45:00* Test Item Value Reference Range Interpretation Comments Urine Bacteria (test code = 52903-8) MANY NONE H [facility] Epithelial Daffk1528-36-44 03:45:00 * Test Item Value Reference Range Interpretation Comments Urine Epithelial Cells (test code = 85320-5) FEW NONE [facility] Amorphous Wisfvibj0605-90-94 03:45:00* Test Item Value Reference Range Interpretation Comments Urine Amorphous Sediment (test code = 8246-1) MODERATE FEW H [facility] MJT4182-38-80 03:45:00* Test Item Value Reference Range Interpretation Comments Urine WBC (test code = 5821-4) 21-50 0-5 H [facility] [id number] 03:45:00* Test Item Value Reference Range Interpretation Comments Urine RBC (test code = 73575-9) 6-10 0-5 H [facility] Bvrgknwj3723-07-50 03:45:00* Test Item Value Reference Range Interpretation Comments Urine Bacteria (test code = 43208-8) MANY NONE [facility] Epithelial Iswbp8724-43-71 03:45:00 * Test Item Value Reference Range Interpretation Comments Urine Epithelial Cells (test code = 03858-9) FEW NONE [facility] Amorphous Sbfgtalj6711-12-85 03:45:00* Test Item Value Reference Range Interpretation Comments Urine Amorphous Sediment (test code = 8246-1) MODERATE FEW H [facility] [id number] 03:45:00* Test Item Value Reference Range Interpretation Comments Urine WBC (test code = 5821-4) 21-50 0-5 H [facility] [id number] 03:45:00* Test Item Value Reference Range Interpretation Comments Urine RBC (test code = 24956-5) 6-10 0-5 H [facility] Ikwdhmtd7986-69-37 03:45:00* Test Item Value Reference Range Interpretation Comments Urine Bacteria (test code = 79880-0) MANY NONE [facility] Epithelial Lwzcp5700-84-34 03:45:00 * Test Item Value Reference Range Interpretation Comments Urine Epithelial Cells (test code = 19176-7) FEW NONE [facility] Am[facility] Fzxixdjn3359-51-63 03:45:00* Test Item Value Reference Range Interpretation Comments Urine Amorphous Sediment (test code = 8246-1) MODERATE FEW H [facility] WSC0063-22-51 03:45:00* Test Item Value Reference Range Interpretation Comments Urine WBC (test code = 5821-4) 21-50 0-5 H [facility] [id number] 03:45:00* Test Item Value Reference Range Interpretation Comments Urine RBC (test code = 67062-9) 6-10 0-5 H [facility] Qbmmtzhn4780-22-91 03:45:00* Test Item Value Reference Range Interpretation Comments Urine Bacteria (test code = 64072-3) MANY NONE [facility] Epithelial Zoobg5131-74-08 03:45:00 * Test Item Value Reference Range Interpretation Comments Urine Epithelial Cells (test code = 64071-6) FEW NONE [facility] Amorphous Pwzjlppl3324-91-15 03:45:00* Test Item Value Reference Range Interpretation Comments Urine Amorphous Sediment (test code = 8246-1) MODERATE FEW H [facility] [id number] 03:45:00* Test Item Value Reference Range Interpretation Comments Urine WBC (test code = 5821-4) 21-50 0-5 H [facility] OQA2415-25-75 03:45:00* Test Item Value Reference Range Interpretation Comments Urine RBC (test code = 90191-0) 6-10 0-5 H [facility] Nymsbuwr4608-06-83 03:45:00* Test Item Value Reference Range Interpretation Comments Urine Bacteria (test code = 27545-2) MANY NONE H [facility] Epithelial Vhtyn1610-51-89 03:45:00 * Test Item Value Reference Range Interpretation Comments Urine Epithelial Cells (test code = 39396-7) FEW NONE [facility] Am[facility] Llbmfbay4631-69-13 03:45:00* Test Item Value Reference Range Interpretation Comments Urine Amorphous Sediment (test code = 8246-1) MODERATE FEW H [facility] SGC3567-66-96 03:45:00* Test Item Value Reference Range Interpretation Comments Urine WBC (test code = 5821-4) 21-50 0-5 H [facility] UHE9163-21-98 03:45:00* Test Item Value Reference Range Interpretation Comments Urine RBC (test code = 19429-4) 6-10 0-5 H [facility] Jzsszzxj2791-84-94 03:45:00* Test Item Value Reference Range Interpretation Comments Urine Bacteria (test code = 35594-4) MANY NONE [facility] Epithelial Ztedu0395-05-99 03:45:00 * Test Item Value Reference Range Interpretation Comments Urine Epithelial Cells (test code = 13566-0) FEW NONE [facility] Am[facility] Sulrrrrp1342-91-86 03:45:00* Test Item Value Reference Range Interpretation Comments Urine Amorphous Sediment (test code = 8246-1) MODERATE FEW H [facility] Crmre9846-85-04 03:36:00* Test Item Value Reference Range Interpretation Comments Urine Color (test code = 5778-6) YELLOW YELLOW [facility] Kybqkea8654-24-87 03:36:00* Test Item Value Reference Range Interpretation Comments Urine Clarity (test code = 15342-9) CLOUDY CLEAR H [facility] Specific Wjmmzfw2798-49-27 03:36:00 * Test Item Value Reference Range Interpretation Comments Urine Specific [place] (test code = 5811-5) 1.015 1.010-1.02 5 [facility] qZ7681-29-73 03:36:00* Test Item Value Reference Range Interpretation Comments Urine pH (test code = 96469-9) 7 5-7 [facility] Leukocyte Chjtbsqz0416-72-15 03:36:00* Test Item Value Reference Range Interpretation Comments Urine Leukocyte Esterase (test code = 82827-5) LARGE NEGATIV E [facility] Ombjpvc2352-39-73 03:36:00* Test Item Value Reference Range Interpretation Comments Urine Nitrite (test code = 75935-3) POSITIVE NEGATIVE H [facility] Swanpkk3289-04-31 03:36:00* Test Item Value Reference Range Interpretation Comments Urine Protein (test code = 74261-3) NEGATIVE NEGATIVE [facility] Glucose (UA)2019-05-07 03:36:00* Test Item Value Reference Range Interpretation Comments Urine Glucose (UA) (test code = 14272-8) NEGATIVE NEGATIVE [facility] Iooeaqh7547-18-15 03:36:00* Test Item Value Reference Range Interpretation Comments Urine Ketones (test code = 59026-9) NEGATIVE NEGATIVE [facility] Jsgbodsuoczy7179-74-22 03:36:00* Test Item Value Reference Range Interpretation Comments Urine Urobilinogen (test code = 35689-9) 0.2 0.2-1 [facility] Chnpjtwta8267-98-56 03:36:00* Test Item Value Reference Range Interpretation Comments Urine Bilirubin (test code = 1977-8) NEGATIVE NEGATIVE [facility] Yhuhj6335-59-03 03:36:00* Test Item Value Reference Range Interpretation Comments Urine Blood (test code = 35266-7) TRACE NEGATIVE [facility] Vyetw6638-22-07 03:36:00* Test Item Value Reference Range Interpretation Comments Urine Color (test code = 5778-6) YELLOW YELLOW [facility] Bpcmgnq7668-96-80 03:36:00* Test Item Value Reference Range Interpretation Comments Urine Clarity (test code = 62733-8) CLOUDY CLEAR H [facility] Specific Bnxsbeq5832-79-47 03:36:00 * Test Item Value Reference Range Interpretation Comments Urine Specific [place] (test code = 5811-5) 1.015 1.010-1.02 5 [facility] tE0910-28-97 03:36:00* Test Item Value Reference Range Interpretation Comments Urine pH (test code = 37680-2) 7 5-7 [facility] Leukocyte Wmqfbwhe3719-04-26 03:36:00* Test Item Value Reference Range Interpretation Comments Urine Leukocyte Esterase (test code = 07648-5) LARGE NEGATIV E [facility] Vnoyfit3660-01-48 03:36:00* Test Item Value Reference Range Interpretation Comments Urine Nitrite (test code = 18072-1) POSITIVE NEGATIVE H [facility] Remhkww4320-43-53 03:36:00* Test Item Value Reference Range Interpretation Comments Urine Protein (test code = 54954-9) NEGATIVE NEGATIVE [facility] Glucose (UA)2019-05-07 03:36:00* Test Item Value Reference Range Interpretation Comments Urine Glucose (UA) (test code = 28138-3) NEGATIVE NEGATIVE [facility] Xvaevrg2464-84-25 03:36:00* Test Item Value Reference Range Interpretation Comments Urine Ketones (test code = 63491-4) NEGATIVE NEGATIVE [facility] Fikfbxgpocmx4060-47-27 03:36:00* Test Item Value Reference Range Interpretation Comments Urine Urobilinogen (test code = 55829-5) 0.2 0.2-1 [facility] Fcpubrarr6382-09-16 03:36:00* Test Item Value Reference Range Interpretation Comments Urine Bilirubin (test code = 1977-8) NEGATIVE NEGATIVE [facility] Lqfyp9953-14-11 03:36:00* Test Item Value Reference Range Interpretation Comments Urine Blood (test code = 50971-7) TRACE NEGATIVE [facility] Zjces0398-10-86 03:36:00* Test Item Value Reference Range Interpretation Comments Urine Color (test code = 5778-6) YELLOW YELLOW [facility] Ysgapky1319-94-03 03:36:00* Test Item Value Reference Range Interpretation Comments Urine Clarity (test code = 28694-3) CLOUDY CLEAR H [facility] Specific Zclqrlt6547-98-23 03:36:00 * Test Item Value Reference Range Interpretation Comments Urine Specific [place] (test code = 5811-5) 1.015 1.010-1.02 5 [facility] lT9611-42-93 03:36:00* Test Item Value Reference Range Interpretation Comments Urine pH (test code = 33198-9) 7 5-7 [facility] Leukocyte Ifqnrhmz4614-87-27 03:36:00* Test Item Value Reference Range Interpretation Comments Urine Leukocyte Esterase (test code = 33212-4) LARGE NEGATIV E [facility] Edhliza4253-91-23 03:36:00* Test Item Value Reference Range Interpretation Comments Urine Nitrite (test code = 11828-8) POSITIVE NEGATIVE H [facility] Aryhhxv9283-15-37 03:36:00* Test Item Value Reference Range Interpretation Comments Urine Protein (test code = 40854-6) NEGATIVE NEGATIVE [facility] Glucose (UA)2019-05-07 03:36:00* Test Item Value Reference Range Interpretation Comments Urine Glucose (UA) (test code = 00050-9) NEGATIVE NEGATIVE [facility] Iqyymbe0578-10-57 03:36:00* Test Item Value Reference Range Interpretation Comments Urine Ketones (test code = 60734-4) NEGATIVE NEGATIVE [facility] Byazpxznklbm4803-13-78 03:36:00* Test Item Value Reference Range Interpretation Comments Urine Urobilinogen (test code = 86175-5) 0.2 0.2-1 [facility] Scpqqcsnl5198-34-66 03:36:00* Test Item Value Reference Range Interpretation Comments Urine Bilirubin (test code = 1977-8) NEGATIVE NEGATIVE [facility] Gbtgf7214-55-79 03:36:00* Test Item Value Reference Range Interpretation Comments Urine Blood (test code = 70440-6) TRACE NEGATIVE [facility] Vegdk1082-33-41 03:36:00* Test Item Value Reference Range Interpretation Comments Urine Color (test code = 5778-6) YELLOW YELLOW [facility] Seekudj3220-44-59 03:36:00* Test Item Value Reference Range Interpretation Comments Urine Clarity (test code = 54223-4) CLOUDY CLEAR H [facility] Specific Psmawob9844-91-18 03:36:00 * Test Item Value Reference Range Interpretation Comments Urine Specific [place] (test code = 5811-5) 1.015 1.010-1.02 5 [facility] vQ9063-51-46 03:36:00* Test Item Value Reference Range Interpretation Comments Urine pH (test code = 89631-0) 7 5-7 [facility] Leukocyte Ihdzjsek4865-99-47 03:36:00* Test Item Value Reference Range Interpretation Comments Urine Leukocyte Esterase (test code = 22818-6) LARGE NEGATIV E [facility] Ernwwuy9239-28-67 03:36:00* Test Item Value Reference Range Interpretation Comments Urine Nitrite (test code = 80517-1) POSITIVE NEGATIVE H [facility] Nkyabbl7618-80-89 03:36:00* Test Item Value Reference Range Interpretation Comments Urine Protein (test code = 26408-9) NEGATIVE NEGATIVE [facility] Glucose (UA)2019-05-07 03:36:00* Test Item Value Reference Range Interpretation Comments Urine Glucose (UA) (test code = 25654-3) NEGATIVE NEGATIVE [facility] Dvdgwjk1538-51-35 03:36:00* Test Item Value Reference Range Interpretation Comments Urine Ketones (test code = 31481-9) NEGATIVE NEGATIVE [facility] Nszcmplnhifr8795-64-97 03:36:00* Test Item Value Reference Range Interpretation Comments Urine Urobilinogen (test code = 32463-5) 0.2 0.2-1 [facility] Xzhgvwsiv2211-31-02 03:36:00* Test Item Value Reference Range Interpretation Comments Urine Bilirubin (test code = 1977-8) NEGATIVE NEGATIVE [facility] Zjuez0932-29-04 03:36:00* Test Item Value Reference Range Interpretation Comments Urine Blood (test code = 27821-1) TRACE NEGATIVE [facility] Ssdds8370-13-74 03:36:00* Test Item Value Reference Range Interpretation Comments Urine Color (test code = 5778-6) YELLOW YELLOW [facility] Ojjehil9832-17-91 03:36:00* Test Item Value Reference Range Interpretation Comments Urine Clarity (test code = 74011-8) CLOUDY CLEAR H [facility] Specific Cmhtjns7484-50-26 03:36:00 * Test Item Value Reference Range Interpretation Comments Urine Specific [place] (test code = 5811-5) 1.015 1.010-1.02 5 [facility] aR2492-10-79 03:36:00* Test Item Value Reference Range Interpretation Comments Urine pH (test code = 91305-6) 7 5-7 [facility] Leukocyte Bsiekjvs9515-59-56 03:36:00* Test Item Value Reference Range Interpretation Comments Urine Leukocyte Esterase (test code = 27428-1) LARGE NEGATIV E [facility] Ippcyct3016-56-31 03:36:00* Test Item Value Reference Range Interpretation Comments Urine Nitrite (test code = 20234-1) POSITIVE NEGATIVE H [facility] Gptufav3105-43-68 03:36:00* Test Item Value Reference Range Interpretation Comments Urine Protein (test code = 47728-4) NEGATIVE NEGATIVE [facility] Glucose (UA)2019-05-07 03:36:00* Test Item Value Reference Range Interpretation Comments Urine Glucose (UA) (test code = 83189-7) NEGATIVE NEGATIVE [facility] Mbjwmbb8095-57-56 03:36:00* Test Item Value Reference Range Interpretation Comments Urine Ketones (test code = 92493-1) NEGATIVE NEGATIVE [facility] Wfbrajnbmswg4301-13-35 03:36:00* Test Item Value Reference Range Interpretation Comments Urine Urobilinogen (test code = 27808-2) 0.2 0.2-1 [facility] Citncjtxd1539-36-58 03:36:00* Test Item Value Reference Range Interpretation Comments Urine Bilirubin (test code = 1977-8) NEGATIVE NEGATIVE [facility] Nuool2373-60-00 03:36:00* Test Item Value Reference Range Interpretation Comments Urine Blood (test code = 61356-0) TRACE NEGATIVE [facility] Igbtb6502-41-46 03:36:00* Test Item Value Reference Range Interpretation Comments Urine Color (test code = 5778-6) YELLOW YELLOW [facility] Sgzydcc6973-93-55 03:36:00* Test Item Value Reference Range Interpretation Comments Urine Clarity (test code = 70596-8) CLOUDY CLEAR H [facility] Specific Pxalmhi0859-99-07 03:36:00 * Test Item Value Reference Range Interpretation Comments Urine Specific [place] (test code = 5811-5) 1.015 1.010-1.02 5 [facility] hP4234-34-47 03:36:00* Test Item Value Reference Range Interpretation Comments Urine pH (test code = 60821-6) 7 5-7 [facility] Leukocyte Vbjaciio6094-37-58 03:36:00* Test Item Value Reference Range Interpretation Comments Urine Leukocyte Esterase (test code = 59141-9) LARGE NEGATIV E [facility] Xjewhwf4943-08-05 03:36:00* Test Item Value Reference Range Interpretation Comments Urine Nitrite (test code = 57057-4) POSITIVE NEGATIVE H [facility] Khfrbpi1123-27-10 03:36:00* Test Item Value Reference Range Interpretation Comments Urine Protein (test code = 24025-2) NEGATIVE NEGATIVE [facility] Glucose (UA)2019-05-07 03:36:00* Test Item Value Reference Range Interpretation Comments Urine Glucose (UA) (test code = 22369-8) NEGATIVE NEGATIVE [facility] Mhghwsz8717-45-02 03:36:00* Test Item Value Reference Range Interpretation Comments Urine Ketones (test code = 84072-9) NEGATIVE NEGATIVE [facility] Zowydjhdkkeo6338-13-36 03:36:00* Test Item Value Reference Range Interpretation Comments Urine Urobilinogen (test code = 34111-0) 0.2 0.2-1 [facility] Aamcgkahr4483-50-94 03:36:00* Test Item Value Reference Range Interpretation Comments Urine Bilirubin (test code = 1977-8) NEGATIVE NEGATIVE [facility] Xwtch0365-52-34 03:36:00* Test Item Value Reference Range Interpretation Comments Urine Blood (test code = 35538-4) TRACE NEGATIVE [facility]2019-05-07 03:22:00 [facility] [address] [address] Patient Name: MOJGAN CUMMINGS MR #: [id number] : 1950 Age/Sex: 69/F Req #: [id number] Adm Physician: ILAN STEIN MD Ordered by: WILIAM MARTINEZ MD Report #: [id number] Location: [facility] Room/Bed: [place] [address] Procedure: [id number] D X/CHEST SINGLE (PORTABLE) Exam Date: 05/07/19 [...] on 05/07/19323 COPY TO: WILIAM MARTINEZ MD Urine color hzckuctqajogy8702-93-14 03:04:00* Test Item Value Reference Range Interpretation Comments Urine Color (test code = 5778-6) YELLOW YELLOW [facility] lhwjruq2528-48-49 03:04:00* Test Item Value Reference Range Interpretation Comments Urine Clarity (test code = 98967-7) CLOUDY [facility]AR [facility] U[facility] by Test strip 2019-05-07 03:04:00* Test Item Value Reference Range Interpretation Comments Urine Specific [place] (test code = 5811-5) 1.015 1.010-1.02 5 [facility] pH measurement by automated test httrd1417-80-40 03:04:00* Test Item Value Reference Range Interpretation Comments Urine pH (test code = 82111-1) 7 5-7 [facility] leukocyte esterase detection by automated test jyvsj1880-40-84 03:04:00* Test Item Value Reference Range Interpretation Comments Urine Leukocyte Esterase (test code = 32708-6) LARGE NEGATIV E [facility] nitrite detection by automated test qxwev8517-66-80 03:04:00* Test Item Value Reference Range Interpretation Comments Urine Nitrite (test code = 21053-7) POSITIVE NEGATIVE [facility] protein detection by automated test fabhs0915-23-66 03:04:00* Test Item Value Reference Range Interpretation Comments Urine Protein (test code = 24108-9) NEGATIVE NEGATIVE [facility] glucose detection by automated test tubgj0455-14-66 03:04:00* Test Item Value Reference Range Interpretation Comments Urine Glucose (UA) (test code = 02046-2) NEGATIVE NEGATIVE [facility] ketones detection by automated test plsya4326-30-24 03:04:00* Test Item Value Reference Range Interpretation Comments Urine Ketones (test code = 76021-5) NEGATIVE NEGATIVE [facility] urobilinogen measurement by test strip (mass/volume)2019-05-07 03:04:00* Test Item Value Reference Range Interpretation Comments Urine Urobilinogen (test code = 21916-5) 0.2 0.2-1 [facility] total bilirubin durjqoeoe0689-50-08 03:04:00* Test Item Value Reference Range Interpretation Comments Urine Bilirubin (test code = 1977-8) NEGATIVE NEGATIVE [facility] erythrocytes yjcxdsjla6140-39-19 03:04:00* Test Item Value Reference Range Interpretation Comments Urine Blood (test code = 84321-7) TRACE NEGATIVE [facility] Tyler[facility] urine sediment leukocyte count by microscopy (number/high power field)2019-05-07 03:04:00* Test Item Value Reference Range Interpretation Comments Urine WBC (test code = 5821-4) 21-50 0-5 [facility] Tyler[facility]rythrocytes detection in urine sediment by light oaepsrtsvw1086-58-75 03:04:00* Test Item Value Reference Range Interpretation Comments Urine RBC (test code = 31896-6) 6-10 0-5 [facility] Tyler[facility]acteria detection in urine sediment by light bvnjzuowvw6837-58-53 03:04:00* Test Item Value Reference Range Interpretation Comments Urine Bacteria (test code = 19656-6) MANY NONE [facility] TylerEpithelial cells detection in urine sediment by light uodmomuxjy3249-25-85 03:04:00* Test Item Value Reference Range Interpretation Comments Urine Epithelial Cells (test code = 10886-3) FEW NONE [facility] TylerAmorphous sediment detection in urine sediment by light vlrsvixzua5280-86-05 03:04:00* Test Item Value Reference Range Interpretation Comments Urine Amorphous Sediment (test code = 8246-1) MODERATE FEW [facility] Station[facility] or plasma lipase measurement (enzymatic activity/volume)2019-05-07 03:04:00* Test Item Value Reference Range Interpretation Comments Lipase (test code = 3040-3) < 4 8-78 [facility] [id number] 03:04:00* Test Item Value Reference Range Interpretation Comments Urine Culture (test code = 630-4) ESCHERICHIA COLI [facility] TylerUrine color [id number] 03:04:00* Test Item Value Reference Range Interpretation Comments Urine Color (test code = 5778-6) YELLOW YELLOW [facility] Tyler[facility] [id number] 03:04:00* Test Item Value Reference Range Interpretation Comments Urine Clarity (test code = 72879-3) CLOUDY CLEAR [facility] gravity of Urine by Test strip 2019-05-07 03:04:00* Test Item Value Reference Range Interpretation Comments Urine Specific [place] (test code = 5811-5) 1.015 1.010-1.02 5 [facility] Tyler[facility] pH measurement by automated test [id number] 03:04:00* Test Item Value Reference Range Interpretation Comments Urine pH (test code = 49452-3) 7 5-7 [facility] leukocyte esterase detection by automated test [id number] 03:04:00* Test Item Value Reference Range Interpretation Comments Urine Leukocyte Esterase (test code = 29466-3) LARGE NEGATIV E [facility] Tyler[facility] nitrite detection by automated test [id number] 03:04:00* Test Item Value Reference Range Interpretation Comments Urine Nitrite (test code = 60828-0) POSITIVE NEGATIVE [facility] protein detection by automated test [id number] 03:04:00* Test Item Value Reference Range Interpretation Comments Urine Protein (test code = 73090-5) NEGATIVE NEGATIVE [facility] Tyler[facility] glucose detection by automated test [id number] 03:04:00* Test Item Value Reference Range Interpretation Comments Urine Glucose (UA) (test code = 31896-8) NEGATIVE NEGATIVE [facility] Tyler[facility] ketones detection by automated test gyeml0511-36-89 03:04:00* Test Item Value Reference Range Interpretation Comments Urine Ketones (test code = 50684-5) NEGATIVE NEGATIVE [facility] Tyler[facility] urobilinogen measurement by test strip (mass/volume)2019-05-07 03:04:00* Test Item Value Reference Range Interpretation Comments Urine Urobilinogen (test code = 41301-1) 0.2 0.2-1 [facility] total bilirubin fzbaqxeze2293-05-66 03:04:00* Test Item Value Reference Range Interpretation Comments Urine Bilirubin (test code = 1977-8) NEGATIVE NEGATIVE [facility] erythrocytes vxwflvkuj1224-38-44 03:04:00* Test Item Value Reference Range Interpretation Comments Urine Blood (test code = 55353-3) TRACE NEGATIVE [facility] TylerAutomated urine sediment leukocyte count by microscopy (number/high power field)2019-05-07 03:04:00* Test Item Value Reference Range Interpretation Comments Urine WBC (test code = 5821-4) 21-50 0-5 [facility] TylerErythrocytes detection in urine sediment by light ysoqejijpv8647-56-69 03:04:00* Test Item Value Reference Range Interpretation Comments Urine RBC (test code = 21645-3) 6-10 0-5 [facility] TylerBacteria detection in urine sediment by light bjjdbhvakk1860-34-64 03:04:00* Test Item Value Reference Range Interpretation Comments Urine Bacteria (test code = 22045-1) MANY NONE [facility] TylerEpithelial cells detection in urine sediment by light shvlgwmnjx2327-48-54 03:04:00* Test Item Value Reference Range Interpretation Comments Urine Epithelial Cells (test code = 78330-5) FEW NONE [facility] TylerAmorphous sediment detection in urine sediment by light lbvdixlvek6288-31-63 03:04:00* Test Item Value Reference Range Interpretation Comments Urine Amorphous Sediment (test code = 8246-1) MODERATE FEW [facility] Stationerum or plasma lipase measurement (enzymatic activity/volume)2019-05-07 03:04:00* Test Item Value Reference Range Interpretation Comments Lipase (test code = 3040-3) < 4 8-78 [facility] TylerB[facility] urine pzcmvdh7360-62-62 03:04:00* Test Item Value Reference Range Interpretation Comments Urine Culture (test code = 630-4) ESCHERICHIA COLI [facility] TylerGLUBED2019-05-07 12:50:00* Test Item Value Reference Range Interpretation Comments GLUBED (test code = GLUBED) 87 mg/dL 74-106 N Performed by certified collar shaper operator at [facility] [id number] 12:50:00* Test Item Value Reference Range Interpretation Comments GLUBED (test code = GLUBED) 87 mg/dL 74-106 N Performed by certified collar shaper operator at [facility] [id number] 12:29:00* Test Item Value Reference Range Interpretation Comments GLUBED (test code = GLUBED) 70 mg/dL 74-106 L Performed by certified collar shaper operator at [facility] [id number] 14:40:00* Test Item Value Reference Range Interpretation Comments GLUBED (test code = GLUBED) 85 mg/dL 74-106 N Performed by certified collar shaper operator at [facility] [id number] 14:39:00* Test Item Value Reference Range Interpretation Comments GLUBED (test code = GLUBED) 74 mg/dL 74-106 N Performed by certified collar shaper operator at [facility] [id number] 14:39:00* Test Item Value Reference Range Interpretation Comments GLUBED (test code = GLUBED) 96 mg/dL 74-106 N Performed by certified collar shaper operator at [facility] [id number] 14:39:00* Test Item Value Reference Range Interpretation Comments GLUBED (test code = GLUBED) 83 mg/dL 74-106 N Performed by certified collar shaper operator at [facility] [id number] 14:39:00* Test Item Value Reference Range Interpretation Comments GLUBED (test code = GLUBED) 70 mg/dL 74-106 L Performed by certified collar shaper operator [facility] CenterNotified Nurse~ [id number] 14:39:00* Test Item Value Reference Range Interpretation Comments GLUBED (test code = GLUBED) 79 mg/dL 74-106 N Performed by certified collar shaper operator at [facility] [id number] 10:37:00* Test Item Value Reference Range Interpretation Comments GLUBED (test code = GLUBED) 80 mg/dL 74-106 N Performed by certified collar shaper operator at [facility] [id number] 10:37:00* Test Item Value Reference Range Interpretation Comments GLUBED (test code = GLUBED) 89 mg/dL 74-106 N Performed by certified collar shaper operator at [facility] [id number] 10:37:00* Test Item Value Reference Range Interpretation Comments GLUBED (test code = GLUBED) 88 mg/dL 74-106 N Performed by certified collar shaper operator at [facility] [id number] 10:36:00* Test Item Value Reference Range Interpretation Comments GLUBED (test code = GLUBED) 76 mg/dL 74-106 N Performed by certified collar shaper operator at [facility] [id number] 10:36:00* Test Item Value Reference Range Interpretation Comments GLUBED (test code = GLUBED) 71 mg/dL 74-106 L Performed by certified collar shaper operator at [facility] [id number] 10:35:00* Test Item Value Reference Range Interpretation Comments GLUBED (test code = GLUBED) 82 mg/dL 74-106 N Performed by certified collar shaper operator at [facility] [id number] 16:17:00* Test Item Value Reference Range Interpretation Comments GLUBED (test code = GLUBED) 77 mg/dL 74-106 N Performed by certified collar shaper operator at [facility] [id number] 10:29:00* Test Item Value Reference Range Interpretation Comments GLUBED (test code = GLUBED) 78 mg/dL 74-106 N Performed by certified collar shaper operator at [facility] CBC W/MANUAL [id number] 07:41:00* Test Item Value Reference Range Interpretation [...] code = IMMAT) 0 % BASIC METABOLIC [id number] 07:01:00* Test Item Value Reference Range Interpretation [...] code = CA) 8.5 mg/dL 8.5-10.1 N [id number] 07:01:00* Test Item Value Reference Range Interpretation Comments MAGNESIUM (test code = MAG) 1.5 mg/dL 1.8-2.4 L BASIC METABOLIC [id number] 06:53:00* Test Item Value Reference Range Interpretation [...] CALCIUM (test code = CA) mg/dL 8.5-10.1 [id number] 06:53:00* Test Item Value Reference Range Interpretation Comments MAGNESIUM (test code = MAG) mg/dL 1.8-2.4 CBC W/MANUAL [id number] 06:43:00* Test Item Value Reference Range Interpretation [...] MORPHOLOGY (test code = PLTMORPH) CBC W/MANUAL [id number] 06:43:00* Test Item Value Reference Range Interpretation [...] MORPHOLOGY (test code = PLTMORPH) CBC W/MANUAL [id number] 06:43:00* Test Item Value Reference Range Interpretation [...] MORPHOLOGY (test code = PLTMORPH) CBC W/MANUAL [id number] 06:43:00* Test Item Value Reference Range Interpretation [...] MORPHOLOGY (test code = PLTMORPH) CBC W/MANUAL [id number] 06:43:00* Test Item Value Reference Range Interpretation [...] PLTEST) PLATELET MORPHOLOGY (test code = PLTMORPH) [id number] 17:26:00* Test Item Value Reference Range Interpretation Comments GLUBED (test code = GLUBED) 87 mg/dL 74-106 N Performed by certified collar shaper operator at [facility] - XR ABDOMEN AP 1 [id number] 14:29:00 FAX: Ilan Holt MD [place]: B St: DIS FAX: Elissa Childers [phone] Name: MOJGAN CUMMINGS [facility] : 1950 Age/S: 68/F [address] [facility] [id number] Loc: [facility] [place] [address] Phys: Elissa Childers Acct: [id number] Dis Date: Status: DIS IN PHONE #: [phone] Exam Date: 12/25/2018 1345 FAX #: [phone] Reason: r/o ileus EXAMS: CPT CODE: [id number] XR ABDOMEN AP 1 V 02438 HISTORY: Pain. Single view chest: COMPARISON: December [...] deformity dislocation of the left hip. at 1427 Reported and signed by: Clem Grissom M.D. CC: Ilan Stein; Elissa Childers Technologist: RADHA ALEXANDRA(R) Trnscrd Date/Time/By: 12/25/2018 (4016) : By: [email or web address] Orig Print D/T: S: 12/25/2018 (6596) PAGE 1 Signed Report - XR ABDOMEN AP 1 [id number] 14:29:00 FAX: Ilan Holt MD [place]: St: ADM FAX: Elissa Childers [phone] Name: ZOILAMOJGAN MOLINA [facility] : 1950 Age/S: 68/F [address] [facility] Unit #: [id number] Loc: [place] [address] Phys: Elissa Childers Acct: [id number] Dis Date: Status: ADM IN PHONE #: [phone] Exam Date: 12/25/2018 1345 FAX #: [phone] Reason: r/o ileus EXAMS: CPT CODE: [id number] XR ABDOMEN AP 1 V 48569 HISTORY: Pain. Single view chest: CO MPARISON: [...] Stein; Elissa Childers Technologist: RADHA CHAO) [facility] Date/Time/By: 12/25/2018 (8411) : By: [email or web address] Orig Print D/T: S: 12/25/2018 (5976) PAGE 1 Signed Report - XR ABDOMEN AP 1 [id number] 14:29:00 FAX: Ilan Holt MD [place]: St: DIS FAX: Elissa Childers [phone] Name: MOJGAN CUMMINGS [facility] : 1950 Age/S: 68/F [address] [facility] Unit #: [id number] Loc: [place] [address] Phys: Elissa Childers Acct: [id number] Dis Date: Status: DIS IN PHONE #: [phone] Exam Date: 12/25/2018 1345 FAX #: [phone] Reason: r/o ileus EXAMS: CPT CODE: [id number] XR ABDOMEN AP 1 V 02773 HISTORY: Pain. Single view chest: CO MPARISON: [...] Ilan Stein; Elissa Childers Technologist: RADHA LOCKETT RT(Ivan) Trns crd Date/Time/By: 12/25/2018 (3502) : By: [email or web address] Orig Print D/T: S: 12/25/2018 (4204) PAGE 1 Signed Report - XR CHEST 1 [id number] 14:29:00 FAX: Ilan Holt MD [place]: St: DIS FAX: Elissa Childers [phone] Name: MOJGAN CUMMINGS [facility] : 1950 Age/S: 68/F [address] [facility] Unit #: [id number] Loc: [place] [address] Phys: Elissa Childers Acct: [id number] Dis Date: Status: DIS IN PHONE #: [phone] Exam Date: 12/25/2018 1345 FAX #: [phone] Reason: check resp status EXAMS: CPT CODE: [id number] XR CHEST 1 V 83171 HISTORY: Pain. Single view chest: CO MPARISON: [...] Stein; Elissa Childers Technologist: RADHA LOCKETT RT(R) Trns crd Date/Time/By: 12/25/2018 (0677) : By: [email or web address] Orig Print D/T: S: 12/25/2018 (7642) PAGE 1 Signed Report - XR CHEST 1 [id number] 14:29:00 FAX: Ilan Holt MD [place]: St: ADM FAX: Elissa Childers [phone] Name: MOJGAN CUMMINGS [facility] : 1950 Age/S: 68/F [address] [facility] Unit #: [id number] Loc: [address] [place] [address] Phys: Elissa Childers Acct: [id number] Dis Date: Status: ADM IN PHONE #: [phone] Exam Date: 12/25/2018 1345 FAX #: [phone] Reason: check resp status EXAMS: CPT CODE: [id number] XR CHEST 1 V 64417 HISTORY: Pain. Single view chest: CO MPARISON: [...] CC: Ilan Stein; Elissa Childers Technologist: RADHA ALEXANDRA(R) Trns crd Date/Time/By: 12/25/2018 (1405) : By: [email or web address] Orig Print D/T: S: 12/25/2018 (0621) PAGE 1 Signed Report - XR CHEST 1 [id number] 14:29:00 FAX: Ilan Holt MD [place]: St: DIS FAX: Elissa Childers [phone] Name: MOJGAN CUMMINGS [facility] : 1950 Age/S: 68/F [address] [facility] Unit #: [id number] Loc: [place] [address] Phys: Elissa Childers Acct: [id number] Dis Date: Status: DIS IN PHONE #: [phone] Exam Date: 12/25/2018 1345 FAX #: [phone] Reason: check resp status EXAMS: CPT CODE: [id number] XR CHEST 1 V 16179 HISTORY: Pain. Single view chest: CO MPARISON: [...] d islocation of the left hip. at 1950 Reported and signed by: Clem mccoy M.D. CC: Ilan Stein; Elissa Childers Technologist: RADHA LOCKETT RT(R) Trns crd Date/Time/By: 12/25/2018 (3073) : By: [email or web address] Orig Print D/T: S: 12/25/2018 (6277) PAGE 1 Signed Report CBC W/AUTO [id number] 06:33:00* Test Item Value Reference Range Interpretation [...] = MDIFF) NO, ONLY SCAN NEEDED DIFFERENTIAL [id number] 06:33:00* Test Item Value Reference Range Interpretation Comments STAIN ACCEPTABILITY (test code = STN ACCEPTABLE) STAIN ACCEPTABLE ANISOCYTOSIS (test code = ANISO) 1+ MACROCYTOSIS (test code = MACR) 1+ PLATELET ESTIMATE (test code = PLTEST) ADEQUATE PLATELET MORPHOLOGY (test code = PLTMORPH) SIZE VARIABLE BASIC METABOLIC [id number] 06:13:00* Test Item Value Reference Range Interpretation [...] code = CA) 8.3 mg/dL 8.5-10.1 L [id number] 06:02:00* Test Item Value Reference Range Interpretation Comments GLUBED (test code = GLUBED) 95 mg/dL 74-106 N Performed by certified collar shaper operator at [facility] CBC W/AUTO [id number] 05:20:00* Test Item Value Reference Range Interpretation [...] = MDIFF) NO, ONLY SCAN NEEDED DIFFERENTIAL [id number] 05:20:00* Test Item Value Reference Range Interpretation Comments STAIN ACCEPTABILITY (test code = STN ACCEPTABLE) CABOT RINGS (test code = CAB) MORPHOLOGY COMMENT (test code = MOC) PLATELET ESTIMATE (test code = PLTEST) PLATELET MORPHOLOGY (test code = PLTMORPH) CBC W/AUTO [id number] 05:20:00* Test Item Value Reference Range Interpretation [...] = MDIFF) NO, ONLY SCAN NEEDED DIFFERENTIAL [id number] 05:20:00* Test Item Value Reference Range Interpretation Comments STAIN ACCEPTABILITY (test code = STN ACCEPTABLE) CABOT RINGS (test code = CAB) MORPHOLOGY COMMENT (test code = MOC) PLATELET ESTIMATE (test code = PLTEST) PLATELET MORPHOLOGY (test code = PLTMORPH) CBC W/AUTO [id number] 05:20:00* Test Item Value Reference Range Interpretation [...] = MDIFF) NO, ONLY SCAN NEEDED DIFFERENTIAL [id number] 05:20:00* Test Item Value Reference Range Interpretation Comments STAIN ACCEPTABILITY (test code = STN ACCEPTABLE) MORPHOLOGY COMMENT (test code = MOC) PLATELET ESTIMATE (test code = PLTEST) PLATELET MORPHOLOGY (test code = PLTMORPH) CBC W/AUTO [id number] 05:20:00* Test Item Value Reference Range Interpretation [...] = MDIFF) NO, ONLY SCAN NEEDED DIFFERENTIAL [id number] 05:20:00* Test Item Value Reference Range Interpretation Comments STAIN ACCEPTABILITY (test code = STN ACCEPTABLE) CABOT RINGS (test code = CAB) MORPHOLOGY COMMENT (test code = MOC) PLATELET ESTIMATE (test code = PLTEST) PLATELET MORPHOLOGY (test code = PLTMORPH) CBC W/AUTO [id number] 14:20:00* Test Item Value Reference Range Interpretation [...] = MDIFF) NO, ONLY SCAN NEEDED DIFFERENTIAL [id number] 14:20:00* Test Item Value Reference Range Interpretation Comments STAIN ACCEPTABILITY (test code = STN ACCEPTABLE) STAIN ACCEPTABLE HYPOCHROMIA (test code = HYPO) 2+ PLATELET ESTIMATE (test code = PLTEST) ADEQUATE PLATELET MORPHOLOGY (test code = PLTMORPH) SIZE VARIABLE CBC W/AUTO [id number] 08:42:00* Test Item Value Reference Range Interpretation [...] = MDIFF) NO, ONLY SCAN NEEDED DIFFERENTIAL [id number] 08:42:00* Test Item Value Reference Range Interpretation Comments STAIN ACCEPTABILITY (test code = STN ACCEPTABLE) CABOT RINGS (test code = CAB) MORPHOLOGY COMMENT (test code = MOC) PLATELET ESTIMATE (test code = PLTEST) PLATELET MORPHOLOGY (test code = PLTMORPH) CBC W/AUTO [id number] 08:42:00* Test Item Value Reference Range Interpretation [...] = MDIFF) NO, ONLY SCAN NEEDED DIFFERENTIAL [id number] 08:42:00* Test Item Value Reference Range Interpretation Comments STAIN ACCEPTABILITY (test code = STN ACCEPTABLE) CABOT RINGS (test code = CAB) MORPHOLOGY COMMENT (test code = MOC) PLATELET ESTIMATE (test code = PLTEST) PLATELET MORPHOLOGY (test code = PLTMORPH) CBC W/AUTO [id number] 08:42:00* Test Item Value Reference Range Interpretation [...] = MDIFF) NO, ONLY SCAN NEEDED DIFFERENTIAL [id number] 08:42:00* Test Item Value Reference Range Interpretation Comments STAIN ACCEPTABILITY (test code = STN ACCEPTABLE) MORPHOLOGY COMMENT (test code = MOC) PLATELET ESTIMATE (test code = PLTEST) PLATELET MORPHOLOGY (test code = PLTMORPH) CBC W/AUTO [id number] 08:42:00* Test Item Value Reference Range Interpretation [...] = MDIFF) NO, ONLY SCAN NEEDED DIFFERENTIAL [id number] 08:42:00* Test Item Value Reference Range Interpretation Comments STAIN ACCEPTABILITY (test code = STN ACCEPTABLE) CABOT RINGS (test code = CAB) MORPHOLOGY COMMENT (test code = MOC) PLATELET ESTIMATE (test code = PLTEST) PLATELET MORPHOLOGY (test code = PLTMORPH) BASIC METABOLIC [id number] 08:06:00* Test Item Value Reference Range Interpretation [...] code = CA) 8.2 mg/dL 8.5-10.1 L [id number] 08:06:00* Test Item Value Reference Range Interpretation Comments MAGNESIUM (test code = MAG) 1.8 mg/dL 1.8-2.4 N [id number] 16:50:00* Test Item Value Reference Range Interpretation Comments GLUBED (test code = GLUBED) 66 mg/dL 74-106 L Performed by certified collar shaper operator at [facility] BASIC METABOLIC [id number] 13:20:00* Test Item Value Reference Range Interpretation [...] LINE DRAW MARIA M LUND WILL DRAW V.[facility] [id number].LAB.[facility] [id number] 13:20:00* Test Item Value Reference Range Interpretation Comments MAGNESIUM (test code = MAG) 1.8 mg/dL 1.8-2.4 N PT IS A LINE DRAW MARIA M LUND WILL DRAW V.[facility] 654633WRFBUF.LAB.[facility] 0709BASIC METABOLIC [id number] 13:13:00* Test Item Value Reference Range Interpretation [...] LINE DRAW MARIA M LUND WILL DRAW V.[facility] 862545QFRCAJ.LAB.[facility] [id number] 13:13:00* Test Item Value Reference Range Interpretation Comments MAGNESIUM (test code = MAG) mg/dL 1.8-2.4 PT IS A LINE DRAW MARIA M LUND WILL DRAW V.[facility] 369380ZBEXSX.LAB.[facility] [id number] 12:30:00* Test Item Value Reference Range Interpretation Comments GLUBED (test code = GLUBED) 80 mg/dL 74-106 N Performed by certified collar shaper operator at [facility] [id number] 12:29:00* Test Item Value Reference Range Interpretation Comments GLUBED (test code = GLUBED) 66 mg/dL 74-106 L Performed by certified collar shaper operator at [facility] [id number] 12:29:00* Test Item Value Reference Range Interpretation Comments GLUBED (test code = GLUBED) 49 mg/dL 74-106 LL Performed by certified collar shaper operator at [facility] [id number] 12:29:00* Test Item Value Reference Range Interpretation Comments GLUBED (test code = GLUBED) 72 mg/dL 74-106 L Performed by certified collar shaper operator at [facility] [id number] 12:29:00* Test Item Value Reference Range Interpretation Comments GLUBED (test code = GLUBED) 97 mg/dL 74-106 N Performed by certified collar shaper operator at [facility] - XR CHEST 1 [id number] 08:57:00 FAX: Conner Hernandez MD [phone] [place]: St: DIS FAX: Ilan Holt MD Name: MOJGAN CUMMINGS [facility] : 1950 Age/S: 68/F [address] [place] [address] Unit #: [id number] Loc: [place] [address] Phys: Conner Norris MD Acct: [id number] Dis Date: Status: DIS IN PHONE #: [phone] Exam Date: 12/22/2018 08 FAX #: [phone] Reason: chf EXAMS: CPT CODE: [id number] XR CHEST 1 V 41616 HISTORY: CHF. COMPARISON: December 18, 2018. Right [...] Sachi Mo); STUDENT TECHNOLOGIST Trnscrd Date/Time/By: 12/22/2018 (08) : By: [email or web address] Orig Print D/T: S: 12/22/2018 (900) PAGE 1 Signed Report - XR CHEST 1 [id number] 08:57:00 FAX: Conner Hernandez MD [phone] [place]: St: [facility] FAX: Ilan Holt MD Name: MOJGAN CUMMINGS [facility] : 1950 Age/S: 68/F [address] [facility] Unit #: [id number] Loc: [address] [place] [address] Phys: Conner Norris MD Acct: [id number] Dis Date: Status: ADM IN PHONE #: [phone] Exam Date: 12/22/2018 08 FAX #: [phone] Reason: chf EXAMS: CPT CODE: [id number] XR CHEST 1 V 88229 HISTORY: CHF. COMPARISON: December 18, 2018. Right [...] Ilan Stein Technologist: Sachi Gonzalez(R); STUDENT TECHNOLOGIST Trnbharti Date/Time/By: 12/22/2018 (0857) : By: [email or web address] Orig Print D/T: S: 12/22/2018 (0901) PAGE 1 Signed Report - XR CHEST 1 [id number] 08:57:00 FAX: Conner Hernandez MD [phone] [place]: St: DIS FAX: Ilan Holt MD Name: MOJGAN CUMMINGS MOLINA [facility] : 1950 Age/S: 68/F [address] [facility] Unit #: [id number] Loc: [place] [address] Phys: Conner Norris MD Acct: [id number] Dis Date: Status: DIS IN PHONE #: [phone] Exam Date: 12/22/2018 0804 FAX #: [phone] Reason: chf EXAMS: CPT CODE: [id number] XR CHEST 1 V 19215 HISTORY: CHF. COMPARISON: December 18, 2018. Right [...] Ilan Stein Technologist: Sachi Gonzalez(R); STUDENT TECHNOLOGIST Trnbharti Date/Time/By: 12/22/2018 (0857) : By: [email or web address] Orig Print D/T: S: 12/22/2018 (0959) PAGE 1 Signed Report BASIC METABOLIC [id number] 06:29:00* Test Item Value Reference Range Interpretation [...] code = CA) 8.0 mg/dL 8.5-10.1 L [id number] 06:29:00* Test Item Value Reference Range Interpretation Comments PHOSPHORUS (test code = PHOS) 3.4 mg/dL 2.5-4.9 N [id number] 06:29:00* Test Item Value Reference Range Interpretation Comments MAGNESIUM (test code = MAG) 1.6 mg/dL 1.8-2.4 L BASIC METABOLIC [id number] 06:24:00* Test Item Value Reference Range Interpretation [...] CALCIUM (test code = CA) mg/dL 8.5-10.1 [id number] 06:24:00* Test Item Value Reference Range Interpretation Comments PHOSPHORUS (test code = PHOS) mg/dL 2.5-4.9 [id number] 06:24:00* Test Item Value Reference Range Interpretation Comments MAGNESIUM (test code = MAG) mg/dL 1.8-2.4 [id number] 18:42:00* Test Item Value Reference Range Interpretation Comments GLUBED (test code = GLUBED) 90 mg/dL 74-106 N Performed by certified collar shaper operator at [facility] [id number] 18:42:00* Test Item Value Reference Range Interpretation Comments GLUBED (test code = GLUBED) 86 mg/dL 74-106 N Performed by certified collar shaper operator at [facility] [id number] 12:42:00* Test Item Value Reference Range Interpretation Comments GLUBED (test code = GLUBED) 91 mg/dL 74-106 N Performed by certified collar shaper operator at [facility] CBC W/AUTO [id number] 10:14:00* Test Item Value Reference Range Interpretation [...] (test code = MDIFF) NO BASIC METABOLIC [id number] 09:00:00* Test Item Value Reference Range Interpretation [...] code = CA) 7.8 mg/dL 8.5-10.1 L [id number] 09:00:00* Test Item Value Reference Range Interpretation Comments PHOSPHORUS (test code = PHOS) 3.5 mg/dL 2.5-4.9 N [id number] 09:00:00* Test Item Value Reference Range Interpretation Comments MAGNESIUM (test code = MAG) 1.5 mg/dL 1.8-2.4 L BASIC METABOLIC [id number] 08:52:00* Test Item Value Reference Range Interpretation [...] CALCIUM (test code = CA) mg/dL 8.5-10.1 [id number] 08:52:00* Test Item Value Reference Range Interpretation Comments PHOSPHORUS (test code = PHOS) mg/dL 2.5-4.9 [id number] 08:52:00* Test Item Value Reference Range Interpretation Comments MAGNESIUM (test code = MAG) mg/dL 1.8-2.4 [id number] 16:37:00* Test Item Value Reference Range Interpretation Comments GLUBED (test code = GLUBED) 86 mg/dL 74-106 N Performed by certified collar shaper operator at [facility] [id number] 11:39:00* Test Item Value Reference Range Interpretation Comments GLUBED (test code = GLUBED) 79 mg/dL 74-106 N Performed by certified collar shaper operator at [facility] BASIC METABOLIC [id number] 08:50:00* Test Item Value Reference Range Interpretation [...] code = CA) 7.8 mg/dL 8.5-10.1 L [id number] 08:50:00* Test Item Value Reference Range Interpretation Comments PHOSPHORUS (test code = PHOS) 4.1 mg/dL 2.5-4.9 N [id number] 08:50:00* Test Item Value Reference Range Interpretation Comments MAGNESIUM (test code = MAG) 1.6 mg/dL 1.8-2.4 L BASIC METABOLIC [id number] 08:47:00* Test Item Value Reference Range Interpretation [...] CALCIUM (test code = CA) mg/dL 8.5-10.1 [id number] 08:47:00* Test Item Value Reference Range Interpretation Comments PHOSPHORUS (test code = PHOS) mg/dL 2.5-4.9 [id number] 08:47:00* Test Item Value Reference Range Interpretation Comments MAGNESIUM (test code = MAG) mg/dL 1.8-2.4 [id number] 05:21:00* Test Item Value Reference Range Interpretation Comments GLUBED (test code = GLUBED) 80 mg/dL 74-106 N Performed by certified collar shaper operator at [facility] [id number] 20:56:00* Test Item Value Reference Range Interpretation Comments GLUBED (test code = GLUBED) 83 mg/dL 74-106 N Performed by certified collar shaper operator at [facility] [id number] 16:06:00* Test Item Value Reference Range Interpretation Comments GLUBED (test code = GLUBED) 95 mg/dL 74-106 N Performed by certified collar shaper operator at [facility] [id number] 13:31:00* Test Item Value Reference Range Interpretation Comments GLUBED (test code = GLUBED) 73 mg/dL 74-106 L Performed by certified collar shaper operator at [facility] BASIC METABOLIC [id number] 08:47:00* Test Item Value Reference Range Interpretation [...] CA) 7.7 mg/dL 8.5-10.1 L BASIC METABOLIC [id number] 08:43:00* Test Item Value Reference Range Interpretation [...] mg/dL 8.5-10.1 L - XR CHEST 1 [id number] 07:29:00 FAX: Mark Anthony Parker MD [phone] [place]: B St: DIS FAX: Ilan Holt MD Name: MOJGAN CUMMINGS [facility] : 1950 Age/S: 68/F [address] Unit #: [id number] Loc: [place] [address] Phys: Mark Anthony Kerns MD Acct: [id number] Dis Date: Status: DIS IN PHONE #: [phone] Exam Date: 12/18/2018 0355 FAX #: [phone] Reason: Resp Failure EXAMS: CPT CODE: [id number] XR CHEST 1 V 35268 EXAM: Chest x-ray, one view; INFORMATION: Persistent [...] Anthony Kerns MD; Ilan Stein Technologist: Misty ALEXANDRA(Ivan) Trnscrd Date/Time/By: 12/18/2018 (0729) : By: [email or web address] Orig Print D /T: S: 12/18/2018 (0732) PAGE 1 S igned Report - XR CHEST 1 [id number] 07:29:00 FAX: Mark Anthony Parker MD [phone] [place]: B St: [facility] FAX: Ilan Holt MD Name: MOJGAN CUMMINGS [facility] : 1950 Age/S: 68/F [address] [place] Unit #: [id number] Loc: V.S01 [place] [address] Phys: Mark Anthony Kerns MD Acct: [id number] Dis Date: Status: ADM IN PHONE #: [phone] Exam Date: 12/18/2018 0355 FAX #: [phone] Reason: Resp Failure EXAMS: CPT CODE: [id number] XR CHEST 1 V 44301 EXAM: Chest x-ray, one view; INFORMATION: Pe rsistent platelike atelectasis in the lower portions of the right lung. R emainder the lungs is well aerated. Overall, no major change compared with the recent study from December 15, 2018. Heart is normal in size. 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 at 0729 Reported and signed by: Calderon Johnson CC: Mark Anthony Kerns MD; Ilan Stein Technologist: Misty ALEXANDRA(R) Trnscrd Date/Time/By: 12/18/2018 (07) : By: HarryGRW Orig Print D /T: S: 12/18/2018 (0784) PAGE 1 S igned Report - XR CHEST 1 [id number] 07:29:00 FAX: Mark Anthony Parker MD [phone] [place]: St: DIS FAX: Ilan Holt MD Name: MOJGAN CUMMINGS [facility] : 1950 Age/S: 68/F [address] Unit #: [id number] Loc: [place] [address] Phys: Mark Anthony Kerns MD Acct: [id number] Dis Date: Status: DIS IN PHONE #: [phone] Exam Date: 12/18/2018 0355 FAX #: [phone] Reason: Resp Failure EXAMS: CPT CODE: [id number] XR CHEST 1 V 85644 EXAM: Chest x-ray, one view; INFORMATION: Pe rsistent platelike atelectasis in the lower portions of the right lung. R emainder the lungs is well aerated. Overall, no major change compared with the recent study from December 15, 2018. Heart is normal in size. 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 at 0708 Reported and signed by: Calderon Johnson CC: Mark Anthony Kerns MD; Ilan Stein Technologist: Misty Pena RT(R) Trnscrd Date/Time/By: 12/18/2018 (0729) : By: HarryGRW Orig Print D /T: S: 12/18/2018 (0770) PAGE 1 S igned Report COMPREHENSIVE METABOLIC [...] due to change in reagent. COMPREHENSIVE METABOLIC [id number] 06:58:00* Test Item Value Reference Range Interpretation [...] code = ALKP) IUnit/L 45-117 CBC W/AUTO [id number] 06:19:00* Test Item Value Reference Range Interpretation [...] into account the patients history. BASIC METABOLIC [id number] 05:33:00* Test Item Value Reference Range Interpretation [...] code = CA) 7.3 mg/dL 8.5-10.1 L [id number] 05:33:00* Test Item Value Reference Range Interpretation Comments MAGNESIUM (test code = MAG) 1.8 mg/dL 1.8-2.4 N BASIC METABOLIC [id number] 07:51:00* Test Item Value Reference Range Interpretation [...] code = CA) 7.4 mg/dL 8.5-10.1 L [id number] 07:51:00* Test Item Value Reference Range Interpretation Comments PHOSPHORUS (test code = PHOS) 3.6 mg/dL 2.5-4.9 N [id number] 07:51:00* Test Item Value Reference Range Interpretation Comments MAGNESIUM (test code = MAG) 1.7 mg/dL 1.8-2.4 L CALCIUM [id number] 07:51:00* Test Item Value Reference Range Interpretation Comments CALCIUM IONIZED (test code = ERICH) 1.16 mmol/L 1.12-1.32 N BASIC METABOLIC [id number] 07:38:00* Test Item Value Reference Range Interpretation [...] code = CA) 7.4 mg/dL 8.5-10.1 L [id number] 07:38:00* Test Item Value Reference Range Interpretation Comments PHOSPHORUS (test code = PHOS) 3.6 mg/dL 2.5-4.9 N [id number] 07:38:00* Test Item Value Reference Range Interpretation Comments MAGNESIUM (test code = MAG) 1.7 mg/dL 1.8-2.4 L CALCIUM [id number] 07:38:00* Test Item Value Reference Range Interpretation Comments CALCIUM IONIZED (test code = ERICH) mmol/L 1.12-1.32 PROTHROMBIN [id number] 02:04:00* Test Item Value Reference Range Interpretation [...] (2.5-3.5) IS PATIENT ON ANTICOAGULANTS? NCBC W/AUTO [id number] 02:00:00* Test Item Value Reference Range Interpretation [...] NRBC#) 0.02 K/mm3 0.0-0.1 N CBC W/O [id number] 07:48:00* Test Item Value Reference Range Interpretation Comments WHITE BLOOD CELL (test code = WBC) 15.7 K/mm3 4.5-12.5 H RED BLOOD CELL (test code = RBC) 2.15 mill/mm3 3.7-5.2 L HEMOGLOBIN (test code = HGB) 6.3 gram/dL 11.5-15.5 L HEMATOCRIT (test code = HCT) 19.1 % 36.0-46.0 Results called to [id number] by [facility] 12/15/18 0747Critical results verified and read back [...] fL 6.7-11.0 H - XR CHEST 1 [id number] 07:47:00 FAX: Ilan Holt MD [place]: St: DIS FAX: Ashley Juarez NP [phone] Name: MOJGAN CUMMINGS [facility] : 1950 Age/S: 68/F [address] [facility] Unit #: [id number] Loc: [place] [address] Phys: Ashley Hendrix NP Acct: [id number] Dis Date: Status: DIS IN PHONE #: [phone] Exam Date: 12/15/2018 0505 FAX #: [phone] Reason: respiratory failure EXAMS: CPT CODE: [id number] XR CHEST 1 V 65002 EXAM: Chest x-ray, one view; INFORMATION: Respiratory failure, GI bleed; IMPRESSION: No platelike atelectasis involving the basilar portion of the right upper lobe. 2. No further changes; no pulmonary edema; normal sized heart. at 0747 Reported and signed by: Rex Gates M.D. CC: Ilan Stein; Ashley Hendrix NP Technologist: Abigail Darling Trnscrd Date/Time/By: 12/15/2018 (0747) : By: HarryGRW Orig Print D/T: S: 12/15/2018 (0750) PAGE 1 Signed Report - XR CHEST 1 [id number] 07:47:00 FAX: Ilan Holt MD [place]: B St: ADM FAX: Ashley Juarez NP [phone] Name: MOJGAN CUMMINGS [facility] : 1950 Age/S: 68/F [address] [facility] Unit #: [id number] Loc: [place] [address] Phys: Ashley Hendrix NP Acct: [id number] Dis Date: Status: ADM IN PHONE #: [phone] Exam Date: 12/15/2018 0505 FAX #: [phone] Reason: respiratory failure EXAMS: CPT CODE: [id number] XR CHEST 1 V 63604 EXAM: Chest x-ray, one view; INFORMATION: Respiratory failure, GI bleed; IMPRESSION: No platelike atelectasis involving the basilar portion of the right upper lobe. 2. No further changes; no pulmonary edema; normal sized heart. Electronically Signed by Crispin Gates on at 0747 Reported and signed by: Jomar Gates M.D. CC: Ilan Stein; Ashley Hendrix NP Technologist: Abigail Darling Trnscrd Date/Time/By: 12/15/2018 (0747) : By: HarryGRW Orig Print D/T: S: 12/15/2018 (0750) PAGE 1 Signed Report - XR CHEST 1 [id number] 07:47:00 FAX: Ilan Holt MD [place]: B St: DIS FAX: Ashley Juarez NP [phone] Name: MOJGAN CUMMINGS [facility] : 1950 Age/S: 68/F [address] Unit #: [id number] Loc: [place] [address] Phys: Ashley Hendrix DOCTOR CHIROPRACTIC Acct: [id number] Dis Date: Status: DIS IN PHONE #: [phone] Exam Date: 12/15/2018 8320 FAX #: [phone] Reason: respiratory failure EXAMS: CPT CODE: [id number] XR CHEST 1 V 88141 EXAM: Chest x-ray, one view; INFORMATION: Respiratory failure, GI bleed; IMPRESSION: No platelike atelectasis involving the basilar portion of the right upper lobe. 2. No further changes; no pulmonary edema; normal sized heart. at 0747 Reported and signed by: Rex Gates M.D. CC: Ilan Stein; Ashley Hendrix NP Technologist: Abigail Darling Trnscrd Date/Time/By: 12/15/2018 (0747) : By: HarryGRW Orig Print D/T: S: 12/15/2018 (0750) PAGE 1 Signed Report BASIC METABOLIC [id number] 07:12:00* Test Item Value Reference Range Interpretation [...] code = CA) 8.0 mg/dL 8.5-10.1 L [id number] 07:12:00* Test Item Value Reference Range Interpretation Comments PHOSPHORUS (test code = PHOS) 4.3 mg/dL 2.5-4.9 N [id number] 07:12:00* Test Item Value Reference Range Interpretation Comments MAGNESIUM (test code = MAG) 1.9 mg/dL 1.8-2.4 N CALCIUM [id number] 07:12:00* Test Item Value Reference Range Interpretation Comments CALCIUM IONIZED (test code = ERICH) 1.16 mmol/L 1.12-1.32 N BASIC METABOLIC [id number] 07:09:00* Test Item Value Reference Range Interpretation [...] code = CA) 8.0 mg/dL 8.5-10.1 L [id number] 07:09:00* Test Item Value Reference Range Interpretation Comments PHOSPHORUS (test code = PHOS) 4.3 mg/dL 2.5-4.9 N [id number] 07:09:00* Test Item Value Reference Range Interpretation Comments MAGNESIUM (test code = MAG) 1.9 mg/dL 1.8-2.4 N CALCIUM [id number] 07:09:00* Test Item Value Reference Range Interpretation Comments CALCIUM IONIZED (test code = ERICH) mmol/L 1.12-1.32 BASIC METABOLIC [id number] 07:03:00* Test Item Value Reference Range Interpretation [...] CALCIUM (test code = CA) mg/dL 8.5-10.1 [id number] 07:03:00* Test Item Value Reference Range Interpretation Comments PHOSPHORUS (test code = PHOS) mg/dL 2.5-4.9 [id number] 07:03:00* Test Item Value Reference Range Interpretation Comments MAGNESIUM (test code = MAG) mg/dL 1.8-2.4 CALCIUM [id number] 07:03:00* Test Item Value Reference Range Interpretation Comments CALCIUM IONIZED (test code = ERICH) mmol/L 1.12-1.32 LACTIC [id number] 06:43:00* Test Item Value Reference Range Interpretation Comments LACTIC ACID (test code = LACT) 1.2 mmol/L 0.4-1.9 N VENOUS BLOOD [id number] 05:32:00* Test Item Value Reference Range Interpretation [...] called to and read back by Jacqueline 05:31 - 12/15/2018; by Romero METHEMOGLOBIN (test code = METHGB) 1.1 % 0.0-1.50 N LACTIC [id number] 18:52:00* Test Item Value Reference Range Interpretation Comments LACTIC ACID (test code = LACT) 1.3 mmol/L 0.4-1.9 N HGB [id number] 18:48:00* Test Item Value Reference Range Interpretation Comments HEMOGLOBIN (test code = HGB) 5.8 gram/dL 11.5-15.5 L RESULTS CALLED TO [id number] BY V.LAB.KP 12/14/18 4005 RESULT VERIFIED BY REPEAT ANALYSIS HEMATOCRIT (test code = HCT) 17.8 % 36.0-46.0 LL Results called to APB4362 by V.LAB.KP1 12/14/18 1848Critical results verified and read back by Nurse? Y PROTHROMBIN [id number] 18:48:00* Test Item Value Reference Range Interpretation [...] COMMENTS TO PHLEB OTOMIST: BLOOD IN LABLACTIC [id number] 15:41:00* Test Item Value Reference Range Interpretation Comments LACTIC ACID (test code = LACT) 3.5 mmol/L 0.4-1.9 HH Results called to AZT0816\\Valarie Kilgore.LAB.KNG1 12/14/18 1541Critical results verified and read back by Nurse? Y - CT ABD PELVIS W/O [id number] 13:43:00 Name: MOJGAN CUMMINGS [facility] : 1950 Age/S: 68 / F [address] Unit #: [id number] Loc: [place] [address] Phys: Mauro Augustin MD Acct: [id number] Dis Date: Status: DIS IN PHONE #: [phone] Exam Date: 12/14/2018 1323 FAX #: [phone] Reason: retroperitoneal hematoma r/o EXAMS: CPT CODE: [id number] CT ABD PELVIS W/O CONT 57170 REASON FOR EXAM: retroperitoneal hematoma r/o EXAM [...] Signed Rep ort (CONTINUED) Name: MOJGAN CUMMINGS [facility] : 1950 Age/S: 68 / F [address] [facility] Unit #: [id number] Loc: [place] [address] Phys: Mauro Augustin MD Acct: [id number] Dis Date: Status: DIS IN PHONE #: [phone] Exam Date: 12/14/2018 1323 FAX #: [phone] Reason: retroperitoneal hematoma r/o EXAMS: CPT CODE: [id number] CT ABD PELVIS W/O CONT 76308 <Continued> IMPRESSION: Large hematoma extending from the right side of the abdomen into the pelvis, likely intraperitoneal. Bilateral pleural effusions (right larger than left). Hepatic steatosis. Sigmoid diverticulosis. Bowel containing left-sided inguinal hernia. Gastrostomy tube is in place. at 1343 Reported and signed by: Vannesa Grant M.D. CC: Mauro Augustin MD; Ilan Stein Technologist:Dmitri Cortes RT(R),(MR),(CT); CTDI: DLP: Trnscb Date/Time: 12/14/2018 (9023) t.SDR.PB10 Orig Print D/T: S: 12/14/2018 (5791) PAGE 2 Signed Report - CT ABD PELVIS W/O CONT 2018-12-14 13:43:00 Name: MOJGAN CUMMINGS [facility] : 1950 Age/S: 68 / F [address] [facility] Unit #: [id number] Loc: [place] [address] Phys: Mauro Augustin MD Acct: [id number] Dis Date: Status: ADM IN PHONE #: [phone] Exam Date: 12/14/2018 1323 FAX #: [phone] Reason: retroperitoneal hematoma r/o EXAMS: CPT CODE: [id number] CT ABD PELVIS W/O CONT 73812 REASON FOR EXAM: retroperitoneal hematoma r/o EXAM ORDER DATE: 12/14/2018 7:51 AM Ordering M.Madison: Mauro Augustin MD PROCEDURE: - CT ABD [...] Signed Rep ort (CONTINUED) Name: MOJGAN CUMMINGS [facility] : 1950 Age/S: 68 / F [address] [facility] Unit #: [id number] Loc: [place] [address] Phys: Mauro Augustin MD Acct: [id number] Dis Date: Status: ADM IN PHONE #: [phone] Exam Date: 12/14/2018 1323 FAX #: [phone] Reason: retroperitoneal hematoma r/o EXAMS: CPT CODE: [id number] CT ABD PELVIS W/O CONT 39210 <Continued> IMPRESSION: Large hematoma extending from the [...] (1343) t.SDR.PB10 Orig Print D/T: S: 12/14/2018 (3367) CTDI: DLP: PAGE 2 Signed Report - CT ABD PELVIS W/O [id number] 13:43:00 Name: MOJGAN CUMMINGS [facility] : 1950 Age/S: 68 / F [address] [facility] Unit #: [id number] Loc: [place] [address] Phys: Mauro Augustin MD Acct: [id number] Dis Date: Status: DIS IN PHONE #: [phone] Exam Date: 12/14/2018 1323 FAX #: [phone] Reason: retroperitoneal hematoma r/o EXAMS: CPT CODE: [id number] CT ABD PELVIS W/O CONT 74380 REASON FOR EXAM: retroperitoneal hematoma r/o EXAM [...] Signed Rep ort (CONTINUED) Name: MOJGAN CUMMINGS : 1950 Age/S: 68 / F [address] Unit #: [id number] Loc: [place] [address] Phys: Mauro Augustin MD Acct: [id number] Dis Date: Status: DIS IN PHONE #: [phone] Exam Date: 12/14/2018 1323 FAX #: [phone] Reason: retroperitoneal hematoma r/o EXAMS: CPT CODE: [id number] CT ABD PELVIS W/O CONT 38778 <Continued> IMPRESSION: Large hematoma extending from the [...] (1343) t.SDR.PB10 Orig Print D/T: S: 12/14/2018 (4929) PAGE 2 Signed Report LACTIC [id number] 12:57:00* Test Item Value Reference Range Interpretation Comments LACTIC ACID (test code = LACT) 3.7 mmol/L 0.4-1.9 HH Results called to [id number] by CHRISTIE 12/14/18 1257Critical results verified and read back by Nurse? Y HEPATIC FUNCTION [id number] 10:46:00* Test Item Value Reference Range Interpretation [...] use blood in lab- XR CHEST 1 [id number] 10:28:00 FAX: Ilan Holt MD [place]: B St: DIS FAX: Ashley Juarez NP [phone] Name: MOJGAN CUMMINGS [facility] : 1950 Age/S: 68/F [address] [facility] Unit #: [id number] Loc: [place] [address] Phys: Ashley Hendrix NP Acct: [id number] Dis Date: Status: DIS IN PHONE #: [phone] Exam Date: 12/14/2018 1001 FAX #: [phone] Reason: CENTRAL LINE PLACEMENT EXAMS: CPT CODE: [id number] XR CHEST 1 V 49135 HISTORY: Central line placement. COMPARISON: Same day. [...] CC: Torsten Stein Heather NP Technologist: OCTAVIO Macedo Date/Time/By: 12/14/2018 (1028) : By: [email or web address] Orig Print D/T: S: 12/14/2018 (1217) PAGE 1 Signed Report - XR CHEST 1 [id number] 10:28:00 FAX: Ilan Holt MD [place]: B St: ADM FAX: Ashley Juarez NP [phone] Name: MOJGAN CUMMINGS [facility] : 1950 Age/S: 68/F [address] [facility] Unit #: [id number] Loc: [address] [address] Phys: Ashley Hendrix NP Acct: [id number] Dis Date: Status: ADM IN PHONE #: [phone] Exam Date: 12/14/2018 1001 FAX #: [phone] Reason: CENTRAL LINE PLACEMENT EXAMS: CPT CODE: [id number] XR CHEST 1 V 62069 HISTORY: Central line placement. COMPARISON: Same day. [...] CC: Torsten Stein Heather NP Technologist: OCTAVIO Macedo Date/Time/By: 12/14/2018 (1028) : By: [email or web address] Orig Print D/T: S: 12/14/2018 (3009) PAGE 1 Signed Report - XR CHEST 1 [id number] 10:28:00 FAX: Ilan Holt MD [place]: St: DIS FAX: Ashley Juarez NP [phone] Name: MOJGAN CUMMINGS [facility] : 1950 Age/S: 68/F [address] [facility] Unit #: [id number] Loc: [place] [address] Phys: Ashley Hendrix NP Acct: [id number] Dis Date: Status: DIS IN PHONE #: [phone] Exam Date: 12/14/2018 1001 FAX #: [phone] Reason: CENTRAL LINE PLACEMENT EXAMS: CPT CODE: [id number] XR CHEST 1 V 54044 HISTORY: Central line placement. COMPARISON: Same day. [...] Ashley Hendrix NP Technologist: OCTAVIO VASQUEZ JR Trnscrd Date/Time/By: 12/14/2018 (1028) : By: [email or web address] Orig Print D/T: S: 12/14/2018 (7941) PAGE 1 Signed Report LACTIC [id number] 09:29:00* Test Item Value Reference Range Interpretation Comments LACTIC ACID (test code = LACT) 6.5 mmol/L 0.4-1.9 HH Results called to [id number] by VCLARISSA 12/14/18 0929Critical results verified and read back by Nurse? Y CBC W/MANUAL [id number] 08:14:00* Test Item Value Reference Range Interpretation [...] code = IMMAT) 0 % BASIC METABOLIC [id number] 07:19:00* Test Item Value Reference Range Interpretation [...] = CA) 7.7 mg/dL 8.5-10.1 L LACTIC [id number] 07:12:00* Test Item Value Reference Range Interpretation Comments LACTIC ACID (test code = LACT) 8.1 mmol/L 0.4-1.9 Results called to [id number] by VCLARISSA 12/14/18 0712Critical results verified and read back by Nurse? Y BASIC METABOLIC [id number] 07:09:00* Test Item Value Reference Range Interpretation [...] code = CA) mg/dL 8.5-10.1 CBC W/MANUAL [id number] 06:58:00* Test Item Value Reference Range Interpretation [...] MORPHOLOGY (test code = PLTMORPH) BASIC METABOLIC [id number] 04:15:00* Test Item Value Reference Range Interpretation [...] code = CA) 7.7 mg/dL 8.5-10.1 L [id number] 04:15:00* Test Item Value Reference Range Interpretation Comments PHOSPHORUS (test code = PHOS) 5.4 mg/dL 2.5-4.9 H [id number] 04:15:00* Test Item Value Reference Range Interpretation Comments MAGNESIUM (test code = MAG) 2.1 mg/dL 1.8-2.4 N LACTIC [id number] 04:13:00* Test Item Value Reference Range Interpretation Comments LACTIC ACID (test code = LACT) 12.3 mmol/L 0.4-1.9 HH Results called to GBE1545 by DELMA.AG1 12/14/18 0413Critical results verified and read back by Nurse? Y BASIC METABOLIC [id number] 04:09:00* Test Item Value Reference Range Interpretation [...] CALCIUM (test code = CA) mg/dL 8.5-10.1 [id number] 04:09:00* Test Item Value Reference Range Interpretation Comments PHOSPHORUS (test code = PHOS) mg/dL 2.5-4.9 [id number] 04:09:00* Test Item Value Reference Range Interpretation Comments MAGNESIUM (test code = MAG) mg/dL 1.8-2.4 PROTHROMBIN [id number] 04:07:00* Test Item Value Reference Range Interpretation [...] (2.5-3.5) IS PATIENT ON ANTICOAGULANTS? NTHROMBOPLASTIN TIME [id number] 04:07:00* Test Item Value Reference Range Interpretation Comments THROMBOPLASTIN TIME PARTIAL (test code = PTT) 24.3 seconds 25.0-36. 5 L IS PATIENT ON ANTICOAGULANTS? N- XR CHEST 1 [id number] 01:25:00 FAX: Justin Doran [place]: St: DIS FAX: Ilan Holt MD Name: MOJGAN CUMMINGS [facility] : 1950 Age/S: 68/F [address] [facility] Unit #: [id number] Loc: [facility] [place] [address] Phys: Justin Doran Acct: [id number] Dis Date: Status: DIS IN PHONE #: [phone] Exam Date: 12/14/2018 0123 FAX #: [phone] Reason: shortness of breath, desaturation EXAMS: CPT CODE: [id number] XR CHEST 1 V 53407 LOCATION: Q15 HISTORY: 68-year-old female who pres [...] By: [email or web address] Orig Print D/T: S: 12/14/2018 (5162) PAGE 1 Signed Report - XR CHEST 1 [id number] 01:25:00 FAX: Justin Doran [place]: B St: ADM FAX: Ilan Holt MD Name: MOJGAN CUMMINGS [facility] : 1950 Age/S: 68/F [address] [facility] Unit #: [id number] Loc: V.S01 [place] [address] Phys: Justin Doran Acct: [id number] Dis Date: Status: ADM IN PHONE #: [phone] Exam Date: 12/14/2018 012 FAX #: [phone] Reason: shortness of breath, desaturation EXAMS: CPT CODE: [id number] XR CHEST 1 V [id number] LOCATION: Q15 HISTORY: 68-year-old female who pres [...] By: [email or web address] Orig Print D/T: S: 12/14/2018 (6421) PAGE 1 Signed Report - XR CHEST 1 [id number] 01:25:00 FAX: Justin Doran [place]: B St: DIS FAX: Ilan Holt MD Name: MOJGAN CUMMINGS [facility] : 1950 Age/S: 68/F [address] [facility] Unit #: [id number] [place]: [place] [address] Phys: Justin Doran Acct: [id number] Dis Date: Status: DIS IN PHONE #: [phone] Exam Date: 12/14/2018 012 FAX #: [phone] Reason: shortness of breath, desaturation EXAMS: CPT CODE: [id number] XR CHEST 1 V 96604 LOCATION: Q15 HISTORY: 68-year-old female who pres [...] (0129) PAGE 1 Signed Report BASIC METABOLIC [id number] 00:25:00* Test Item Value Reference Range Interpretation [...] = PROCAL) 3.87 ng/ml Results called to [id number] by DELMA.AG1 12/14/18 0023Critical results verified and read back [...] taking into account the patients history. LACTIC [id number] 00:23:00* Test Item Value Reference Range Interpretation Comments LACTIC ACID (test code = LACT) 11.3 mmol/L 0.4-1.9 HH Results called to [id number] by V.LAB.AG1 12/14/18 0023Critical results verified and read back by Nurse? Y - US RETRO [id number] 00:02:00 Name: MOJGAN CUMMINGS [facility] : 1950 Age/S: 68 / F [address] Unit #: [id number] Loc: [place] [address] Phys: Justin Doran Acct: [id number] Dis Date: Status: DIS IN PHONE #: [phone] Exam Date: 12/13/2018 2338 FAX #: [phone] Reason: R groing hematoma with possible retroperitoneal EXAMS: CPT CODE: [id number] US RETRO LTD 85226 HISTORY: Groin hematoma Location: C3 FINDINGS: The [...] MD CC: Justin Doran; Ilan Stein Technologist: Cherelle Muniz RDMS Trnnmb Date/Time: 12/14/2018 (0002) [email or web address] Orig Print D/T: S: 12/14/2018 (0005) Probe: PAGE 1 Signed Report - US RETRO [id number] 00:02:00 Name: MOJGAN CUMMINGS JESSE [facility] : 1950 Age/S: 68 / F [address] Unit #: [id number] Loc: [place] [address] Phys: Bennie Doran Acct: [id number] Di s Date: Status: ADM IN PHONE #: Exam Date: 12/13/20182337 FAX #: [phone] Reason: R groing hematoma with possible retroperitoneal EXAMS: CPT CODE: [id number] US RETRO LTD 60824 HISTORY: Groin he matoma Location: C3 FINDINGS: [...] 12/14/2018 at 0002 Reported and signed by: Misyt Law se, MD CC: Justin Doran; Ilan Stein Technologist: Cherelle Muniz RDMS Trnscb Date/Time: 12/14/2018 (0002) t.[email or web address] Orig Print D/T: S: 12/14/2018 (0005) Probe: PAGE 1 Signed Report - US RETRO [id number] 00:02:00 Name: MOJGAN CUMMINGS [facility] : 1950 Age/S: 68 / F [address] Unit #: [id number] Loc: [place] [address] Phys: Bennie Doran Acct: [id number] Di s Date: Status: DIS IN PHONE #: Exam Date: 12/13/20182337 FAX #: Reason: R groing hematoma with possible retroperitoneal EXAMS: CPT CODE: [id number] US RETRO LTD 96481 HISTORY: Groin he matoma Location: C3 FINDINGS: [...] ret roperitoneal hemorrhage. Electronically Signed by Misty Vizcarra MD o n 12/14/2018 at 0002 Reported and signed by: Misty Law se, MD CC: Justin Doran; Ilan Stein Technologist: Cherelle Muniz RDMS Trnscb Date/Time: 12/14/2018 (0002) t.[email or web address] Orig Print D/T: S: 12/14/2018 (0005) Probe: PAGE 1 Signed Report - EXTREM NON VASC [id number] 23:57:00 Name: MOJGAN CUMMINGS [facility] : 1950 Age[facility]S: 68 / F [address] [facility] Unit #: [id number] Loc: [place] [address] Phys: Eliecer Bateman MD Acct: [id number] Dis Date: Status: DIS IN PHONE #: [phone] Exam Date: 12/13/20182324 FAX #: [phone] Reason: RIGHT GROIN HEMATOMA EXAMS: CPT CODE: [id number] EXTREM NON VASC LTD 98824 HISTORY: Swelling Location: C3 FINDINGS: Sonographic images of the right inguinal region were obtained. There is a large fluid collection noted in the right upper thigh. The full extent of this collection cannot be measured given its size outside the ktxqb-gb-vkxt but does measure at least 5.5 cm [...] CC: Eliecer Bateman MD; Ilan Stein Technologist: Cherelle Muniz RDMS Trnscb Date/Time: 12/13/2018 (1390) [email or web address] Orig Print D/T: S: 12/14/2018 (0000) Probe: PAGE 1 Signed Report - US EXTREM NON VASC [id number] 23:57:00 Name: MOJGAN CUMMINGS [facility] : 1950 Age[facility]S: 68 / F [address] [facility] Unit #: [id number] Loc: [place] [address] Phys: Sa kristi Bateman MD Acct: [id number] Di s Date: Status: ADM IN PHONE #: [phone] Exam Date: 12/13/20182324 FAX #: Reason: RIGHT GROIN HEMATOMA EXAMS: CPT CODE: [id number] [facility] NON VASC LTD 07144 HISTORY: Swelling L ocation: C3 FINDINGS: Sonographic images of the right ingui nal region were obtained. There is a large fluid collection noted in the right upper thigh. The full extent of this collection cannot be measured given its size outside the lydsq-tv-mgof but does measure at least 5.5 cm [...] Eliecer Bateman MD; Ilan Stein Techn ologist: Cherelle Muniz RDMS Trnscb Date/Time : 12/13/2018 (8729) [email or web address] Orig Print D/T: S: 12/15/19 19 (0000) Probe: PAGE 1 Signed Report - US EXTREM NON VASC [id number] 23:57:00 Name: MOJGAN CUMMINGS [facility] : 1950 Age/S: 68 / F [address] Unit #: [id number] Loc: [place] [address] Phys: Sa kristi Bateman MD Acct: [id number] Di s Date: Status: DIS IN PHONE #: [phone] Exam Date: 12/13/2018 2325 FAX #: Reason: RIGHT GROIN HEMATOMA EXAMS: CPT CODE: [id number] US EXTREM NON VASC LTD 21807 HISTORY: Swelling L ocation: C3 FINDINGS: Sonographic images of the right ingui nal region were obtained. There is a large fluid collection noted in the right upper thigh. The full extent of this collection cannot be measured given its size outside the fzfge-zk-vhys but does measure at least 5.5 cm in depth and over 10 cm in length. IMPRESSION: 1. Large fluid collection in the right upper thigh. Given the cl inical history findings are most compatible with sequelae of large hemat chris. If clinically indicated CT could be performed for full extent of c ollection. a t 4082 Reported and signed by: Misty Vizcarra MD CC: Eliecer Bateman MD; Ilan Stein Techn ologist: Cherelle Muniz RDMS Trnscb Date/Time : 12/13/2018 (0863) [email or web address] Orig Print D/T: S: 12/15/19 19 (0000) Probe: PAGE 1 Signed Report [id number] 23:01:00* Test Item Value Reference Range Interpretation Comments GLUBED (test code = GLUBED) 113 mg/dL 74-106 H Performed by certified collar shaper operator at [facility] CBC W/MANUAL [id number] 22:51:00* Test Item Value Reference Range Interpretation [...] (test code = PLTMORPH) NORMAL CBC W/MANUAL [id number] 22:13:00* Test Item Value Reference Range Interpretation [...] MORPHOLOGY (test code = PLTMORPH) CBC W/MANUAL [id number] 22:13:00* Test Item Value Reference Range Interpretation [...] MORPHOLOGY (test code = PLTMORPH) CBC W/MANUAL [id number] 22:13:00* Test Item Value Reference Range Interpretation [...] MORPHOLOGY (test code = PLTMORPH) CBC W/MANUAL [id number] 22:13:00* Test Item Value Reference Range Interpretation [...] MORPHOLOGY (test code = PLTMORPH) CBC W/MANUAL [id number] 22:13:00* Test Item Value Reference Range Interpretation [...] PLTEST) PLATELET MORPHOLOGY (test code = PLTMORPH) [id number] 21:47:00* Test Item Value Reference Range Interpretation Comments GLUBED (test code = GLUBED) 59 mg/dL 74-106 L Performed by certified collar shaper operator at [facility] [id number] 21:11:00* Test Item Value Reference Range Interpretation Comments GLUBED (test code = GLUBED) 83 mg/dL 74-106 N Performed by certified collar shaper operator at [facility] [id number] 12:49:00* Test Item Value Reference Range Interpretation Comments GLUBED (test code = GLUBED) 84 mg/dL 74-106 N Performed by certified collar shaper operator at [facility] [id number] 09:33:00* Test Item Value Reference Range Interpretation Comments GLUBED (test code = GLUBED) 71 mg/dL 74-106 L Performed by certified collar shaper operator at [facility] CBC W/AUTO [id number] 06:40:00* Test Item Value Reference Range Interpretation [...] 48 K/mm3 150-450 LL Results called to [id number] by KATY 12/13/18 0546Critical results verified and [...] = MDIFF) NO, ONLY SCAN NEEDED DIFFERENTIAL [id number] 06:40:00* Test Item Value Reference Range Interpretation Comments STAIN ACCEPTABILITY (test code = STN ACCEPTABLE) STAIN ACCEPTABLE POIKILOCYTOSIS (test code = POIK) 2+ ANISOCYTOSIS (test code = ANISO) 1+ MACROCYTOSIS (test code = MACR) 1+ PLATELET ESTIMATE (test code = PLTEST) DECREASED PLATELET MORPHOLOGY (test code = PLTMORPH) NORMAL BASIC METABOLIC [id number] 06:21:00* Test Item Value Reference Range Interpretation [...] code = CA) 7.3 mg/dL 8.5-10.1 L [id number] 06:21:00* Test Item Value Reference Range Interpretation Comments PHOSPHORUS (test code = PHOS) 2.9 mg/dL 2.5-4.9 N [id number] 06:21:00* Test Item Value Reference Range Interpretation Comments MAGNESIUM (test code = MAG) 1.6 mg/dL 1.8-2.4 L BASIC METABOLIC [id number] 06:11:00* Test Item Value Reference Range Interpretation [...] CALCIUM (test code = CA) mg/dL 8.5-10.1 [id number] 06:11:00* Test Item Value Reference Range Interpretation Comments PHOSPHORUS (test code = PHOS) mg/dL 2.5-4.9 [id number] 06:11:00* Test Item Value Reference Range Interpretation Comments MAGNESIUM (test code = MAG) mg/dL 1.8-2.4 CBC W/AUTO [id number] 05:49:00* Test Item Value Reference Range Interpretation [...] 48 K/mm3 150-450 LL Results called to [id number] by KATY 12/13/18 0546Critical results verified and [...] = MDIFF) NO, ONLY SCAN NEEDED DIFFERENTIAL [id number] 05:49:00* Test Item Value Reference Range Interpretation Comments STAIN ACCEPTABILITY (test code = STN ACCEPTABLE) MORPHOLOGY COMMENT (test code = MOC) PLATELET ESTIMATE (test code = PLTEST) PLATELET MORPHOLOGY (test code = PLTMORPH) CBC W/AUTO [id number] 05:48:00* Test Item Value Reference Range Interpretation [...] 48 K/mm3 150-450 LL Results called to [id number] by KATY 12/13/18 0546Critical results verified and [...] = MDIFF) NO, ONLY SCAN NEEDED DIFFERENTIAL [id number] 05:48:00* Test Item Value Reference Range Interpretation Comments STAIN ACCEPTABILITY (test code = STN ACCEPTABLE) CABOT RINGS (test code = CAB) MORPHOLOGY COMMENT (test code = MOC) PLATELET ESTIMATE (test code = PLTEST) PLATELET MORPHOLOGY (test code = PLTMORPH) CBC W/AUTO [id number] 05:48:00* Test Item Value Reference Range Interpretation [...] 48 K/mm3 150-450 LL Results called to [id number] by KATY 12/13/18 0546Critical results verified and [...] = MDIFF) NO, ONLY SCAN NEEDED DIFFERENTIAL [id number] 05:48:00* Test Item Value Reference Range Interpretation Comments STAIN ACCEPTABILITY (test code = STN ACCEPTABLE) MORPHOLOGY COMMENT (test code = MOC) PLATELET ESTIMATE (test code = PLTEST) PLATELET MORPHOLOGY (test code = PLTMORPH) CBC W/AUTO [id number] 05:48:00* Test Item Value Reference Range Interpretation [...] 48 K/mm3 150-450 LL Results called to [id number] by KATY 12/13/18 0546Critical results verified and [...] = MDIFF) NO, ONLY SCAN NEEDED DIFFERENTIAL [id number] 05:48:00* Test Item Value Reference Range Interpretation Comments STAIN ACCEPTABILITY (test code = STN ACCEPTABLE) CABOT RINGS (test code = CAB) MORPHOLOGY COMMENT (test code = MOC) PLATELET ESTIMATE (test code = PLTEST) PLATELET MORPHOLOGY (test code = PLTMORPH) [id number] 20:53:00* Test Item Value Reference Range Interpretation Comments GLUBED (test code = GLUBED) 78 mg/dL 74-106 N Performed by certified collar shaper operator at [facility] [id number] 17:51:00* Test Item Value Reference Range Interpretation Comments GLUBED (test code = GLUBED) 79 mg/dL 74-106 N Performed by certified collar shaper operator at [facility] B-TYPE NATRIURETIC [id number] 07:39:00* Test Item Value Reference Range Interpretation Comments B-TYPE NATRIURETIC PEPTIDE (test code = BNP) 370.99 pgram/mL 0-100 H BASIC METABOLIC [id number] 07:20:00* Test Item Value Reference Range Interpretation [...] code = CA) 7.5 mg/dL 8.5-10.1 L [id number] 07:20:00* Test Item Value Reference Range Interpretation Comments PHOSPHORUS (test code = PHOS) 2.6 mg/dL 2.5-4.9 N [id number] 07:20:00* Test Item Value Reference Range Interpretation Comments MAGNESIUM (test code = MAG) 1.9 mg/dL 1.8-2.4 N CALCIUM [id number] 07:20:00* Test Item Value Reference Range Interpretation Comments CALCIUM IONIZED (test code = ERICH) 1.18 mmol/L 1.12-1.32 N BASIC METABOLIC [id number] 07:11:00* Test Item Value Reference Range Interpretation [...] CALCIUM (test code = CA) mg/dL 8.5-10.1 [id number] 07:11:00* Test Item Value Reference Range Interpretation Comments PHOSPHORUS (test code = PHOS) mg/dL 2.5-4.9 [id number] 07:11:00* Test Item Value Reference Range Interpretation Comments MAGNESIUM (test code = MAG) mg/dL 1.8-2.4 CALCIUM [id number] 07:11:00* Test Item Value Reference Range Interpretation Comments CALCIUM IONIZED (test code = ERICH) 1.18 mmol/L 1.12-1.32 N BASIC METABOLIC [id number] 07:05:00* Test Item Value Reference Range Interpretation [...] CALCIUM (test code = CA) mg/dL 8.5-10.1 [id number] 07:05:00* Test Item Value Reference Range Interpretation Comments PHOSPHORUS (test code = PHOS) mg/dL 2.5-4.9 [id number] 07:05:00* Test Item Value Reference Range Interpretation Comments MAGNESIUM (test code = MAG) mg/dL 1.8-2.4 CALCIUM [id number] 07:05:00* Test Item Value Reference Range Interpretation Comments CALCIUM IONIZED (test code = ERICH) 1.18 mmol/L 1.12-1.32 N - XR CHEST 1 [id number] 06:49:00 FAX: Ilan Holt MD [place]: [address] St: DIS FAX: Ashley Juarez NP [phone] Name: MOJGAN CUMMINGS [facility] : 1950 Age/S: 68/F [address] Unit #: [id number] Loc: [place] [address] Phys: Ashley Hendrix NP Acct: [id number] Dis Date: Status: DIS IN PHONE #: [phone] Exam Date: 12/12/2018 0549 FAX #: [phone] Reason: respiratory failure EXAMS: CPT CODE: [id number] XR CHEST 1 V 56028 REASON FOR EXAM: respiratory failure EXAM ORDER [...] Darling Trnscrd Date/Time/By: 12/12/2018 (0649) : By: [email or web address] Orig Print D/T : S: 12/12/2018 (0652) PAGE 1 Sig julian Report - XR CHEST 1 [id number] 06:49:00 FAX: Ilan Holt MD [place]: [address] St: ADM FAX: Ashley Juarez NP [phone] Name: MOJGAN CUMMINGS [facility] : 1950 Age/S: 68/F [address] [facility] Unit #: [id number] Loc: [facility] [place] [address] Phys: Ashley Hendrix NP Acct: [id number] Dis Date: Status: ADM IN PHONE #: [phone] Exam Date: 12/12/2018 0549 FAX #: [phone] Reason: respiratory failure EXAMS: CPT CODE: [id number] XR CHEST 1 V 82019 REASON FOR EXAM: respiratory failure EXAM ORDER [...] congestion at 0649 Reported and signed by: bAraham Toro M.D. CC: Ilan Stein; Ashley Hendrix NP Technologist: Abigail Darling Trnscrd Date/Time/By: 12/12/2018 (0649) : By: GordoL Orig Print D/T : S: 12/12/2018 (0697) PAGE 1 Sig julian Report - XR CHEST 1 [id number] 06:49:00 FAX: Ilan Holt MD [place]: B St: DIS FAX: Ashley Juarez NP [phone] Name: ZOILAMOJGAN MOLINA [facility] : 1950 Age/S: 68/F [address] [facility] Unit #: [id number] Loc: [place] [address] Phys: Ashley Hendrix NP Acct: [id number] Dis Date: Status: DIS IN PHONE #: [phone] Exam Date: 12/12/2018 0549 FAX #: [phone] Reason: respiratory failure EXAMS: CPT CODE: [id number] XR CHEST 1 V 45975 REASON FOR EXAM: respiratory failure EXAM ORDER [...] Darling Trnscrd Date/Time/By: 12/12/2018 (0649) : By: Rodrigo Orig Print D/T : S: 12/12/2018 (0652) PAGE 1 Sig julian Report CBC W/AUTO [id number] 06:40:00* Test Item Value Reference Range Interpretation [...] (test code = MDIFF) NO ARTERIAL BLOOD [id number] 05:57:00* Test Item Value Reference Range Interpretation [...] Norma 05:55 - 12/12/2018; by Ac Hernandez, [employer] ABG O2 SATURATION (test code = SATA) [...] Norma 05:55 - 12/12/2018; by Ac Hernandez, [employer] METHEMOGLOBIN (test code = METHGB) 0.4 % 0.0-1.50 N O2 CONTENT (test code = O2CT) 15.3 % vol 18.0-22.0 L CALCIUM [id number] 16:28:00* Test Item Value Reference Range Interpretation Comments CALCIUM IONIZED (test code = ERICH) 1.14 mmol/L 1.12-1.32 N CBC W/AUTO [id number] 16:01:00* Test Item Value Reference Range Interpretation [...] 47 K/mm3 150-450 LL Results called to [id number] by FERNANDO 12/11/18 1444Critical results verified and read back [...] = MDIFF) NO, ONLY SCAN NEEDED DIFFERENTIAL [id number] 16:01:00* Test Item Value Reference Range Interpretation [...] code = PLTMORPH) APPEAR LARGE BASIC METABOLIC [id number] 14:58:00* Test Item Value Reference Range Interpretation [...] code = CA) 7.2 mg/dL 8.5-10.1 L [id number] 14:58:00* Test Item Value Reference Range Interpretation Comments PHOSPHORUS (test code = PHOS) 3.1 mg/dL 2.5-4.9 N [id number] 14:58:00* Test Item Value Reference Range Interpretation Comments MAGNESIUM (test code = MAG) 1.6 mg/dL 1.8-2.4 L CALCIUM [id number] 14:58:00* Test Item Value Reference Range Interpretation Comments CALCIUM IONIZED (test code = ERICH) mmol/L 1.12-1.32 CBC W/AUTO [id number] 14:45:00* Test Item Value Reference Range Interpretation [...] 47 K/mm3 150-450 LL Results called to [id number] by DELMA[facility] 12/11/18 1444Critical results verified and read [...] = MDIFF) NO, ONLY SCAN NEEDED DIFFERENTIAL [id number] 14:45:00* Test Item Value Reference Range Interpretation Comments STAIN ACCEPTABILITY (test code = STN ACCEPTABLE) MORPHOLOGY COMMENT (test code = MOC) PLATELET ESTIMATE (test code = PLTEST) PLATELET MORPHOLOGY (test code = PLTMORPH) CBC W/AUTO [id number] 14:44:00* Test Item Value Reference Range Interpretation [...] 47 K/mm3 150-450 LL Results called to [id number] by [facility] 12/11/18 1444Critical results verified and read [...] = MDIFF) NO, ONLY SCAN NEEDED DIFFERENTIAL [id number] 14:44:00* Test Item Value Reference Range Interpretation Comments STAIN ACCEPTABILITY (test code = STN ACCEPTABLE) CABOT RINGS (test code = CAB) MORPHOLOGY COMMENT (test code = MOC) PLATELET ESTIMATE (test code = PLTEST) PLATELET MORPHOLOGY (test code = PLTMORPH) CBC W/AUTO [id number] 14:44:00* Test Item Value Reference Range Interpretation [...] 47 K/mm3 150-450 LL Results called to [id number] by FERNANDO 12/11/18 1444Critical results verified and read back [...] = MDIFF) NO, ONLY SCAN NEEDED DIFFERENTIAL [id number] 14:44:00* Test Item Value Reference Range Interpretation Comments STAIN ACCEPTABILITY (test code = STN ACCEPTABLE) MORPHOLOGY COMMENT (test code = MOC) PLATELET ESTIMATE (test code = PLTEST) PLATELET MORPHOLOGY (test code = PLTMORPH) CBC W/AUTO [id number] 14:44:00* Test Item Value Reference Range Interpretation [...] 47 K/mm3 150-450 LL Results called to [id number] by [facility] 12/11/18 1444Critical results verified and read [...] = MDIFF) NO, ONLY SCAN NEEDED DIFFERENTIAL [id number] 14:44:00* Test Item Value Reference Range Interpretation Comments STAIN ACCEPTABILITY (test code = STN ACCEPTABLE) CABOT RINGS (test code = CAB) MORPHOLOGY COMMENT (test code = MOC) PLATELET ESTIMATE (test code = PLTEST) PLATELET MORPHOLOGY (test code = PLTMORPH) BASIC METABOLIC [id number] 07:46:00* Test Item Value Reference Range Interpretation [...] code = CA) 7.2 mg/dL 8.5-10.1 L [id number] 07:46:00* Test Item Value Reference Range Interpretation Comments PHOSPHORUS (test code = PHOS) 3.4 mg/dL 2.5-4.9 N [id number] 07:46:00* Test Item Value Reference Range Interpretation Comments MAGNESIUM (test code = MAG) 1.9 mg/dL 1.8-2.4 N BASIC METABOLIC [id number] 07:37:00* Test Item Value Reference Range Interpretation [...] CALCIUM (test code = CA) mg/dL 8.5-10.1 [id number] 07:37:00* Test Item Value Reference Range Interpretation Comments PHOSPHORUS (test code = PHOS) mg/dL 2.5-4.9 [id number] 07:37:00* Test Item Value Reference Range Interpretation Comments MAGNESIUM (test code = MAG) mg/dL 1.8-2.4 CBC W/AUTO [id number] 07:35:00* Test Item Value Reference Range Interpretation [...] = MDIFF) NO, ONLY SCAN NEEDED DIFFERENTIAL [id number] 07:35:00* Test Item Value Reference Range Interpretation Comments STAIN ACCEPTABILITY (test code = STN ACCEPTABLE) STAIN ACCEPTABLE ANISOCYTOSIS (test code = ANISO) 1+ MACROCYTOSIS (test code = MACR) 1+ PLATELET ESTIMATE (test code = PLTEST) DECREASED PLATELET MORPHOLOGY (test code = PLTMORPH) NORMAL CBC W/AUTO [id number] 07:13:00* Test Item Value Reference Range Interpretation [...] = MDIFF) NO, ONLY SCAN NEEDED DIFFERENTIAL [id number] 07:13:00* Test Item Value Reference Range Interpretation Comments STAIN ACCEPTABILITY (test code = STN ACCEPTABLE) CABOT RINGS (test code = CAB) MORPHOLOGY COMMENT (test code = MOC) PLATELET ESTIMATE (test code = PLTEST) PLATELET MORPHOLOGY (test code = PLTMORPH) CBC W/AUTO [id number] 07:13:00* Test Item Value Reference Range Interpretation [...] = MDIFF) NO, ONLY SCAN NEEDED DIFFERENTIAL [id number] 07:13:00* Test Item Value Reference Range Interpretation Comments STAIN ACCEPTABILITY (test code = STN ACCEPTABLE) MORPHOLOGY COMMENT (test code = MOC) PLATELET ESTIMATE (test code = PLTEST) PLATELET MORPHOLOGY (test code = PLTMORPH) CBC W/AUTO [id number] 07:13:00* Test Item Value Reference Range Interpretation [...] = MDIFF) NO, ONLY SCAN NEEDED DIFFERENTIAL [id number] 07:13:00* Test Item Value Reference Range Interpretation Comments STAIN ACCEPTABILITY (test code = STN ACCEPTABLE) MORPHOLOGY COMMENT (test code = MOC) PLATELET ESTIMATE (test code = PLTEST) PLATELET MORPHOLOGY (test code = PLTMORPH) CBC W/AUTO [id number] 07:13:00* Test Item Value Reference Range Interpretation [...] = MDIFF) NO, ONLY SCAN NEEDED DIFFERENTIAL [id number] 07:13:00* Test Item Value Reference Range Interpretation Comments STAIN ACCEPTABILITY (test code = STN ACCEPTABLE) CABOT RINGS (test code = CAB) MORPHOLOGY COMMENT (test code = MOC) PLATELET ESTIMATE (test code = PLTEST) PLATELET MORPHOLOGY (test code = PLTMORPH) - XR CHEST 1 [id number] 06:59:00 FAX: Alecia Girard NP [phone] [place]: St: DIS FAX: Ilan Holt MD Name: MOJGAN CUMMINGS [facility] : 1950 Age/S: 68/F [address] [facility] Unit #: [id number] Loc: [facility] [place] [address] Phys: Alecia Girard NP Acct: [id number] Dis Date: Status: DIS IN PHONE #: [phone] Exam Date: 12/11/2018634 FAX #: [phone] Reason: sob EXAMS: CPT CODE: [id number] XR CHEST 1 V 88454 REASON FOR EXAM: sob EXAM ORDER DATE: [...] JR Trnscrd Date/Time/By: 12/11/2018 (0659) : By: HarryVTL Orig Print D/T: S: 12/11/2018 (0703) PAGE 1 Signed Report - XR CHEST 1 V 2018-12-11 06:59:00 FAX: Alecia Girard NP [phone] [place]: B St: ADM FAX: Ilan Holt MD Name: MOJGAN CUMMINGS [facility] : 1950 Age/S: 68/F [address] [facility] Unit #: [id number] Loc: [address] [place] [address] Phys: Alecia Girard NP Acct: [id number] Dis Date: Status: ADM IN PHONE #: [phone] Exam Date: 12/11/201835 FAX #: [phone] Reason: sob EXAMS: CPT CODE: [id number] XR CHEST 1 V 15683 REASON FOR EXAM: sob EXAM ORDER DATE: [...] JR Trnscrd Date/Time/By: 12/11/2018 (0659) : By: Rodrigo Orig Print D/T: S: 12/11/2018 (0703) PAGE 1 Signed Report - XR CHEST 1 V 2018-12-11 06:59:00 FAX: Alecia Girard NP [phone] [place]: [address] St: DIS FAX: Ilan Holt MD Name: MOJGAN CUMMINGS [facility] : 1950 Age/S: 68/F [address] Unit #: [id number] Loc: [place] [address] Phys: Alecia Girard NP Acct: [id number] Dis Date: Status: DIS IN PHONE #: [phone] Exam Date: 12/11/2018634 FAX #: [phone] Reason: sob EXAMS: CPT CODE: [id number] XR CHEST 1 V 51915 REASON FOR EXAM: sob EXAM ORDER DATE: [...] by: Brayan Toro M.D. CC: Alecia Girard DOCTOR CHIROPRACTIC; Ilan Stein Technologist: OCTAVIO VASQUEZ JR Trnscrd Date/Time/By: 12/11/2018 (0659) : By: Rodrigo Orig Print D/T: S: 12/11/2018 (2689) PAGE 1 Signed Report CBC W/AUTO DIFF [...] = MDIFF) NO, ONLY SCAN NEEDED DIFFERENTIAL [id number] 10:13:00* Test Item Value Reference Range Interpretation [...] = PLTMORPH) NORMAL - XR CHEST 1 [id number] 07:27:00 FAX: Alecia Girard NP [phone] [place]: St: DIS FAX: Ilan Holt MD Name: MOJGAN CUMMINGS [facility] : 1950 Age/S: 68/F [address] [facility] Unit #: [id number] Loc: [place] [address] Phys: Alecia Girard NP Acct: [id number] Dis Date: Status: DIS IN PHONE #: [phone] Exam Date: 12/10/2018 0453 FAX #: [phone] Reason: sob EXAMS: CPT CODE: [id number] XR CHEST 1 V 51152 HISTORY: Shortness of breath. COMPARISON: Previous day. Tracheostomy tube and the right central line are unchanged. No acute infiltrates, effusion or congestion. Dependent changes. Cardiomegaly. IMPRESSION: No acute infi ltrates, effusion or congestion. Dependent changes. at 0720 Report ed and signed by: Clem Grissom M.D. CC: Alecia Girard NP; Ilan Stein Technologist: JUNAID BRAY, RT(R); Mary Harris Trnscrd Date/Time/By: 12/10/2018 (726) : By: donna [email or web address] Orig Print D/T: S: 12/10/2018 (30) P AGE 1 Signed Report - XR CHEST 1 [id number] 07:27:00 FAX: Alecia Girard NP [phone] [place]: St: ADM FAX: Ilan Holt MD Name: MOJGAN CUMMINGS [facility] : 1950 Age/S: 68/F [address] [facility] Unit #: [id number] Loc: [address] [place] [address] Phys: Alecia Girard NP Acct: [id number] Dis Date: Status: ADM IN PHONE #: [phone] Exam Date: 12/10/2018452 FAX #: [phone] Reason: sob EXAMS: CPT CODE: [id number] XR CHEST 1 V 87577 HISTORY: Shortness of breath. COMPARISON: Previous day. Tracheostomy tube and the right central line are unchanged. No acute infiltrates, effusion or congestion. Dependent changes. Cardiomegaly. IMPRESSION: No acute infi ltrates, effusion or congestion. Dependent changes. at 0727 Report ed and signed by: Clem Grissom M.D. CC: Alecia Girard NP; Ilan Stein Technologist: JUNAID BRAY, RT(R); Mary Harris Trnscrd Date/Time/By: 12/10/2018 (726) : By: donna [email or web address] Orig Print D/T: S: 12/10/2018 () P AGE 1 Signed Report - XR CHEST 1 [id number] 07:27:00 FAX: Alecia Girard NP [phone] [place]: St: DIS FAX: Ilan Holt MD Name: MOJGAN CUMMINGS [facility] : 1950 Age/S: 68/F [address] [facility] Unit #: [id number] Loc: [facility] [place] [address] Phys: Alecia Girard NP Acct: [id number] Dis Date: Status: DIS IN PHONE #: [phone] Exam Date: 12/10/2018 0453 FAX #: [phone] Reason: sob EXAMS: CPT CODE: [id number] XR CHEST 1 V 87087 HISTORY: Shortness of breath. COMPARISON: Previous day. Tracheostomy tube and the right central line are unchanged. No acute infiltrates, effusion or congestion. Dependent changes. Cardiomegaly. IMPRESSION: No acute infi ltrates, effusion or congestion. Dependent changes. at 0727 Report ed and signed by: Clem Grissom M.D. CC: Alecia Girard DOCTOR CHIROPRACTIC; Ilan Stein Technologist: JUNAID BRAY, RT(R); Mary Harris Trnscrd Date/Time/By: 12/10/2018 (07) : By: donna [email or web address] Orig Print D/T: S: 12/10/2018 (00) P AGE 1 Signed Report CBC W/AUTO [id number] 07:20:00* Test Item Value Reference Range Interpretation [...] = MDIFF) NO, ONLY SCAN NEEDED DIFFERENTIAL [id number] 07:20:00* Test Item Value Reference Range Interpretation Comments STAIN ACCEPTABILITY (test code = STN ACCEPTABLE) CABOT RINGS (test code = CAB) MORPHOLOGY COMMENT (test code = MOC) PLATELET ESTIMATE (test code = PLTEST) PLATELET MORPHOLOGY (test code = PLTMORPH) CBC W/AUTO [id number] 07:20:00* Test Item Value Reference Range Interpretation [...] = MDIFF) NO, ONLY SCAN NEEDED DIFFERENTIAL [id number] 07:20:00* Test Item Value Reference Range Interpretation Comments STAIN ACCEPTABILITY (test code = STN ACCEPTABLE) CABOT RINGS (test code = CAB) MORPHOLOGY COMMENT (test code = MOC) PLATELET ESTIMATE (test code = PLTEST) PLATELET MORPHOLOGY (test code = PLTMORPH) CBC W/AUTO [id number] 07:20:00* Test Item Value Reference Range Interpretation [...] = MDIFF) NO, ONLY SCAN NEEDED DIFFERENTIAL [id number] 07:20:00* Test Item Value Reference Range Interpretation Comments STAIN ACCEPTABILITY (test code = STN ACCEPTABLE) MORPHOLOGY COMMENT (test code = MOC) PLATELET ESTIMATE (test code = PLTEST) PLATELET MORPHOLOGY (test code = PLTMORPH) CBC W/AUTO [id number] 07:20:00* Test Item Value Reference Range Interpretation [...] = MDIFF) NO, ONLY SCAN NEEDED DIFFERENTIAL [id number] 07:20:00* Test Item Value Reference Range Interpretation Comments STAIN ACCEPTABILITY (test code = STN ACCEPTABLE) CABOT RINGS (test code = CAB) MORPHOLOGY COMMENT (test code = MOC) PLATELET ESTIMATE (test code = PLTEST) PLATELET MORPHOLOGY (test code = PLTMORPH) BASIC METABOLIC [id number] 07:03:00* Test Item Value Reference Range Interpretation [...] code = CA) 7.7 mg/dL 8.5-10.1 L [id number] 07:03:00* Test Item Value Reference Range Interpretation Comments PHOSPHORUS (test code = PHOS) 1.8 mg/dL 2.5-4.9 L [id number] 07:03:00* Test Item Value Reference Range Interpretation Comments MAGNESIUM (test code = MAG) 1.8 mg/dL 1.8-2.4 N BASIC METABOLIC [id number] 06:56:00* Test Item Value Reference Range Interpretation [...] CALCIUM (test code = CA) mg/dL 8.5-10.1 [id number] 06:56:00* Test Item Value Reference Range Interpretation Comments PHOSPHORUS (test code = PHOS) mg/dL 2.5-4.9 [id number] 06:56:00* Test Item Value Reference Range Interpretation Comments MAGNESIUM (test code = MAG) mg/dL 1.8-2.4 BASIC METABOLIC [id number] 13:59:00* Test Item Value Reference Range Interpretation [...] code = CA) 7.5 mg/dL 8.5-10.1 L [id number] 13:59:00* Test Item Value Reference Range Interpretation Comments PHOSPHORUS (test code = PHOS) 2.8 mg/dL 2.5-4.9 N [id number] 13:59:00* Test Item Value Reference Range Interpretation Comments MAGNESIUM (test code = MAG) 2.5 mg/dL 1.8-2.4 H BASIC METABOLIC [id number] 13:56:00* Test Item Value Reference Range Interpretation [...] CALCIUM (test code = CA) mg/dL 8.5-10.1 [id number] 13:56:00* Test Item Value Reference Range Interpretation Comments PHOSPHORUS (test code = PHOS) mg/dL 2.5-4.9 [id number] 13:56:00* Test Item Value Reference Range Interpretation Comments MAGNESIUM (test code = MAG) mg/dL 1.8-2.4 CBC W/AUTO [id number] 12:42:00* Test Item Value Reference Range Interpretation Comments WHITE BLOOD CELL (test code = WBC) 10.3 K/mm3 4.5-12.5 N RED BLOOD CELL (test code = RBC) 2.44 mill/mm3 3.7-5.2 L HEMOGLOBIN (test code = HGB) 7.2 gram/dL 11.5-15.5 L RESULT VERIFIED BY REPEAT ANALYSIS HEMATOCRIT (test code = HCT) 21.6 % 36.0-46.0 LL Results called to [id number] by JEVON 12/09/18 0727Critical results verified and [...] = MDIFF) NO, ONLY SCAN NEEDED DIFFERENTIAL [id number] 12:42:00* Test Item Value Reference Range Interpretation Comments STAIN ACCEPTABILITY (test code = STN ACCEPTABLE) STAIN ACCEPTABLE ANISOCYTOSIS (test code = ANISO) 1+ PLATELET ESTIMATE (test code = PLTEST) DECREASED PLATELET MORPHOLOGY (test code = PLTMORPH) SIZE VARIABLE ARTERIAL BLOOD [id number] 09:17:00* Test Item Value Reference Range Interpretation [...] 35.0 ABG SITE (test code = SITEA) Sales Representative Supervisor HEMATOCRIT (test code = HCT/ABG) 24 % [...] 11.0 % vol 18.0-22.0 L BASIC METABOLIC [id number] 07:55:00* Test Item Value Reference Range Interpretation Comments SODIUM (test code = NA) 142 mmol/L 136-145 N POTASSIUM (test code = K) 2.0 mmol/L 3.5-5.1 LL Re sults called to [id number] by CORBYLDB 12/09/18 0753Critical results verified and [...] code = CA) 7.4 mg/dL 8.5-10.1 L [id number] 07:55:00* Test Item Value Reference Range Interpretation Comments PHOSPHORUS (test code = PHOS) 1.9 mg/dL 2.5-4.9 L [id number] 07:55:00* Test Item Value Reference Range Interpretation Comments MAGNESIUM (test code = MAG) 1.6 mg/dL 1.8-2.4 L CALCIUM [id number] 07:55:00* Test Item Value Reference Range Interpretation Comments CALCIUM IONIZED (test code = ERICH) 1.14 mmol/L 1.12-1.32 N CBC W/AUTO [id number] 07:29:00* Test Item Value Reference Range Interpretation Comments WHITE BLOOD CELL (test code = WBC) 10.3 K/mm3 4.5-12.5 N RED BLOOD CELL (test code = RBC) 2.44 mill/mm3 3.7-5.2 L HEMOGLOBIN (test code = HGB) 7.2 gram/dL 11.5-15.5 L RESULT VERIFIED BY REPEAT ANALYSIS HEMATOCRIT (test code = HCT) 21.6 % 36.0-46.0 LL Results called to [id number] by JEVON 12/09/18 0727Critical results verified and [...] = MDIFF) NO, ONLY SCAN NEEDED DIFFERENTIAL [id number] 07:29:00* Test Item Value Reference Range Interpretation Comments STAIN ACCEPTABILITY (test code = STN ACCEPTABLE) CABOT RINGS (test code = CAB) MORPHOLOGY COMMENT (test code = MOC) PLATELET ESTIMATE (test code = PLTEST) PLATELET MORPHOLOGY (test code = PLTMORPH) CBC W/AUTO [id number] 07:29:00* Test Item Value Reference Range Interpretation Comments WHITE BLOOD CELL (test code = WBC) 10.3 K/mm3 4.5-12.5 N RED BLOOD CELL (test code = RBC) 2.44 mill/mm3 3.7-5.2 L HEMOGLOBIN (test code = HGB) 7.2 gram/dL 11.5-15.5 L RESULT VERIFIED BY REPEAT ANALYSIS HEMATOCRIT (test code = HCT) 21.6 % 36.0-46.0 LL Results called to [id number] by JEVON 12/09/18 0727Critical results verified and [...] = MDIFF) NO, ONLY SCAN NEEDED DIFFERENTIAL [id number] 07:29:00* Test Item Value Reference Range Interpretation Comments STAIN ACCEPTABILITY (test code = STN ACCEPTABLE) CABOT RINGS (test code = CAB) MORPHOLOGY COMMENT (test code = MOC) PLATELET ESTIMATE (test code = PLTEST) PLATELET MORPHOLOGY (test code = PLTMORPH) CBC W/AUTO [id number] 07:29:00* Test Item Value Reference Range Interpretation Comments WHITE BLOOD CELL (test code = WBC) 10.3 K/mm3 4.5-12.5 N RED BLOOD CELL (test code = RBC) 2.44 mill/mm3 3.7-5.2 L HEMOGLOBIN (test code = HGB) 7.2 gram/dL 11.5-15.5 L RESULT VERIFIED BY REPEAT ANALYSIS HEMATOCRIT (test code = HCT) 21.6 % 36.0-46.0 LL Results called to [id number] by JEVON 12/09/18 0727Critical results verified and [...] = MDIFF) NO, ONLY SCAN NEEDED DIFFERENTIAL [id number] 07:29:00* Test Item Value Reference Range Interpretation Comments STAIN ACCEPTABILITY (test code = STN ACCEPTABLE) MORPHOLOGY COMMENT (test code = MOC) PLATELET ESTIMATE (test code = PLTEST) PLATELET MORPHOLOGY (test code = PLTMORPH) CBC W/AUTO [id number] 07:29:00* Test Item Value Reference Range Interpretation Comments WHITE BLOOD CELL (test code = WBC) 10.3 K/mm3 4.5-12.5 N RED BLOOD CELL (test code = RBC) 2.44 mill/mm3 3.7-5.2 L HEMOGLOBIN (test code = HGB) 7.2 gram/dL 11.5-15.5 L RESULT VERIFIED BY REPEAT ANALYSIS HEMATOCRIT (test code = HCT) 21.6 % 36.0-46.0 LL Results called to [id number] by JEVON 12/09/18 0727Critical results verified and [...] = MDIFF) NO, ONLY SCAN NEEDED DIFFERENTIAL [id number] 07:29:00* Test Item Value Reference Range Interpretation Comments STAIN ACCEPTABILITY (test code = STN ACCEPTABLE) CABOT RINGS (test code = CAB) MORPHOLOGY COMMENT (test code = MOC) PLATELET ESTIMATE (test code = PLTEST) PLATELET MORPHOLOGY (test code = PLTMORPH) BASIC METABOLIC [id number] 07:27:00* Test Item Value Reference Range Interpretation [...] CALCIUM (test code = CA) mg/dL 8.5-10.1 [id number] 07:27:00* Test Item Value Reference Range Interpretation Comments PHOSPHORUS (test code = PHOS) mg/dL 2.5-4.9 [id number] 07:27:00* Test Item Value Reference Range Interpretation Comments MAGNESIUM (test code = MAG) mg/dL 1.8-2.4 CALCIUM [id number] 07:27:00* Test Item Value Reference Range Interpretation Comments CALCIUM IONIZED (test code = ERICH) 1.14 mmol/L 1.12-1.32 N [id number] 07:21:00* Test Item Value Reference Range Interpretation Comments TROPONIN-T (test code = TROPT) 0.024 ng/mL <0.011 HH Verified by repeat analysisPerformed At: [facility] [address] [place], [place] [address]Voaldogd Sanjai MD Ph:[phone] performed at: [facility] [address] [place] [address] - XR CHEST 1 [id number] 07:10:00 FAX: Alecia Girard NP [phone] [place]: B St: DIS FAX: Ilan Holt MD Name: MOJGAN CUMMINGS [facility] : 1950 Age/S: 68/F [address] [facility] #: [id number] Loc: [facility] [place] [address] Phys: Alecia Girard NP Acct: [id number] Dis Date: Status: DIS IN PHONE #: [phone] Exam Date: 12/09/2018 0451 FAX #: [phone] Reason: sob EXAMS: CPT CODE: [id number] XR CHEST 1 V 01278 REASON FOR EXAM: sob EXAM ORDER DATE: [...] by: Brayan Toro M.D. CC: Alecia Girard DOCTOR CHIROPRACTIC; Ilan Stein Technologist: BROOKE BRAY, RT(R); Mary Harris Trnscrd Date/Time/By: 12/09 (0710) : By: Rodrigo Orig Print D/T: S: 12/09/2018 (0748) PAGE 1 Signed Report - XR CHEST 1 [id number] 07:10:00 FAX: Alecia Girard NP [phone] [place]: B St: [facility] FAX: Ilan Holt MD Name: MOJGAN CUMMINGS [facility] : 1950 Age/S: 68/F [address] [facility] Unit #: [id number] Loc: [address] [place] [address] Phys: Alecia Girard NP Acct: [id number] Dis Date: Status: ADM IN PHONE #: [phone] Exam Date: 12/09/2018 0451 FAX #: [phone] Reason: sob EXAMS: CPT CODE: [id number] XR CHEST 1 V 07245 REASON FOR EXAM: sob EXAM ORDER DATE: [...] BRAY, RT(R); Mary Harris Trnscrd Date/Time/By: 12/09 (07) : By: Rodrigo Orig Print D/T: S: 12/09/2018 (0768) PAGE 1 Signed Report - XR CHEST 1 [id number] 07:10:00 FAX: Aelcia Girard NP [phone] [place]: B St: DIS FAX: Ilan Holt MD Name: MOJGAN CUMMINGS [facility] : 1950 Age/S: 68/F [address] [facility] Unit #: [id number] Loc: [place] [address] Phys: Alecia Girard NP Acct: [id number] Dis Date: Status: DIS IN PHONE #: [phone] Exam Date: 12/09/2018 045 FAX #: [phone] Reason: sob EXAMS: CPT CODE: [id number] XR CHEST 1 V 19398 REASON FOR EXAM: sob EXAM ORDER DATE: [...] by: Brayan Toro M.D. CC: Alecia Girard DOCTOR CHIROPRACTIC; Ilan Stein Technologist: BROOKE BRAY RT(R); Mary Harris Trntingrd Date/Time/By: 12/09 (0710) : By: Rodrigo Orig Print D/T: S: 12/09/2018 (0707) PAGE 1 Signed Report [id number] 07:07:00* Test Item Value Reference Range Interpretation Comments TROPONIN-T (test code = TROPT) 0.024 ng/mL Test performed [facility]: [facility] [address] [place] [address] BASIC METABOLIC [id number] 17:09:00* Test Item Value Reference Range Interpretation Comments SODIUM (test code = NA) 139 mmol/L 136-145 N POTASSIUM (test code = K) 2.8 mmol/L 3.5-5.1 Re sults called to [place] [address] by V.LAB.KP1 12/08/18 1709Critical results verified and read back [...] code = CA) 7.4 mg/dL 8.5-10.1 L [id number] 17:09:00* Test Item Value Reference Range Interpretation Comments PHOSPHORUS (test code = PHOS) 2.9 mg/dL 2.5-4.9 N [id number] 17:09:00* Test Item Value Reference Range Interpretation Comments MAGNESIUM (test code = MAG) 1.8 mg/dL 1.8-2.4 N CALCIUM [id number] 17:09:00* Test Item Value Reference Range Interpretation Comments CALCIUM IONIZED (test code = ERICH) 1.09 mmol/L 1.12-1.32 L BASIC METABOLIC [id number] 16:34:00* Test Item Value Reference Range Interpretation [...] CALCIUM (test code = CA) mg/dL 8.5-10.1 [id number] 16:34:00* Test Item Value Reference Range Interpretation Comments PHOSPHORUS (test code = PHOS) mg/dL 2.5-4.9 [id number] 16:34:00* Test Item Value Reference Range Interpretation Comments MAGNESIUM (test code = MAG) mg/dL 1.8-2.4 CALCIUM [id number] 16:34:00* Test Item Value Reference Range Interpretation Comments CALCIUM IONIZED (test code = ERICH) 1.09 mmol/L 1.12-1.32 L CBC W/O [id number] 16:03:00* Test Item Value Reference Range Interpretation [...] code = MPV) 13.1 fL 6.7-11.0 H [id number] 10:07:00* Test Item Value Reference Range Interpretation Comments GLYCOSYLATED HEMOGLOBIN (HA1C) (test code = GLYHGB) < 3.5 % HbA1 4. 8-6.0 L ESTIMATED AVERAGE GLUCOSE (test code = EAG) 54 MG/DL CBC W/MANUAL [id number] 07:57:00* Test Item Value Reference Range Interpretation Comments WHITE BLOOD CELL (test code = WBC) 11.8 K/mm3 4.5-12.5 N RED BLOOD CELL (test code = RBC) 2.50 mill/mm3 3.7-5.2 L HEMOGLOBIN (test code = HGB) 7.2 gram/dL 11.5-15.5 L HEMATOCRIT (test code = HCT) 21.6 % 36.0-46.0 LL Results called to [id number] by ARMNAD 12/08/18 0656Critical results verified and read back [...] PLTMORPH) SIZE VARIABLE - XR CHEST 1 [id number] 07:31:00 FAX: Ilan Holt MD [place]: B St: DIS FAX: Charo Iraheta MD [phone] Name: MOJGAN CUMMINGS [facility] : 1950 Age/S: 68/F [address] [facility] Unit #: [id number] Loc: [place] [address] Phys: Charo Iraheta MD Acct: [id number] Dis Date: Status: DIS IN PHONE #: [phone] Exam Date: 12/08/2018 0540 FAX #: [phone] Reason: sob EXAMS: CPT CODE: [id number] XR CHEST 1 V 17809 REASON FOR EXAM: sob EXAM ORDER DATE: 12/08/2018 4:00 AM Ordering MLatrell: Charo Iraheta MD [...] central line. IMPRESSION: No active disease. at 0701 Reported and signed by: Brayan Toro M.D. CC: Ilan Stein; Charo Iraheta MD Technologist: OCTAVIO VASQUEZ JR Trnscrd Date/Time/By: 12/08/2018 (0731) : By: [email or web address] Orig Print D/T: S: 12/08/2018 (0799) PAGE 1 Signed Report - XR CHEST 1 [id number] 07:31:00 FAX: Ilan Holt MD [place]: St: [facility] FAX: Charo Iraheta MD [phone] Name: MOJGAN CUMMINGS [facility] : 1950 Age/S: 68/F [address] [facility] Unit #: [id number] Loc: [address] [address] Phys: Charo Iraheta MD Acct: [id number] Dis Date: Status: ADM IN PHONE #: [phone] Exam Date: 12/08/2018 0508 FAX #: [phone] Reason: sob EXAMS: CPT CODE: [id number] XR CHEST 1 V 32811 REASON FOR EXAM: sob EXAM ORDER DATE: [...] central line. IMPRESSION: No active disease. at 0703 Reported and signed by: Brayan Toro M.D. CC: Ilan Stein; Charo Iraheta MD Technologist: OCTAVIO VASQUEZ JR Trnnmrd Date/Time/By: 12/08/2018 (07) : By: [email or web address] Orig Print D/T: S: 12/08/2018 (0734) PAGE 1 Signed Report - XR CHEST 1 [id number] 07:31:00 FAX: Ilan Holt MD [place]: St: DIS FAX: Charo Iraheta MD [phone] Name: MOJGAN CUMMINGS [facility] : 1950 Age/S: 68/F [address] [facility] Unit #: [id number] Loc: [place] [address] Phys: Charo Iraheta MD Acct: [id number] Dis Date: Status: DIS IN PHONE #: [phone] Exam Date: 12/08/2018 05 FAX #: [phone] Reason: sob EXAMS: CPT CODE: [id number] XR CHEST 1 V 58938 REASON FOR EXAM: sob EXAM ORDER DATE: [...] central line. IMPRESSION: No active disease. at 0714 Reported and signed by: Brayan Toro M.D. CC: Ilan Stein; Charo Iraheta MD Technologist: OCTAVIO VASQUEZ JR Trnscrd Date/Time/By: 12/08/2018 (0740) : By: GordoL Orig Print D/T: S: 12/08/2018 (1320) PAGE 1 Signed Report - XR ABDOMEN [id number] 07:30:00 FAX: Ilan Holt MD [place]: St: DIS Name: MOJGAN SAUCEDO [facility] : [birth year] Age/S: 68/F [address] [facility] Unit #: [id number] Loc: [place] [address] Phys: Ilan Stein MD Acct: [id number] Dis Date: Status: DIS IN PHONE #: [phone] Exam Date: 12/08/2018 0540 FAX #: [phone] Reason: ileus EXAMS: CPT CODE: [id number] XR ABDOMEN 2V 63984 REASON FOR EXAM: ileus EXAM ORDER DATE: [...] Ilan Stein Technologist: OCTAVIO Macedo Date/Time/By: 12/08/2018 (93) : By: Rodrigo Orig Print D/T: S: 12/08/2018 (0740) PAGE 1 Signed Report - XR ABDOMEN [id number] 07:30:00 FAX: Ilan Holt MD [place]: St: ADM Name: MOJGAN SAUCEDO [facility] : [birth year] Age/S: 68/F [address] [facility] Unit #: [id number] Loc: [address] [place] [address] Phys: Ilan Stein MD Acct: [id number] Dis Date: Status: ADM IN PHONE #: [phone] Exam Date: 12/08/2018539 FAX #: [phone] Reason: ileus EXAMS: CPT CODE: [id number] XR ABDOMEN 2V 81864 REASON FOR EXAM: ileus EXAM ORDER DATE: 12/08/2018 7:00 AM Attending MLatrell: Ilan barrett MD PROCEDURE: - XR ABDOMEN [...] Toro M.D. CC: Ilan Stein Technologist: OCTAVIO Mariord Date/Time/By: 12/08/2018 (74) : By: HarryVTL Orig Print D/T: S: 12/08/2018 (3442) PAGE 1 Signed Report - XR ABDOMEN [id number] 07:30:00 FAX: Ilan Holt MD [place]: St: DIS Name: MOJGAN SAUCEDO [facility] : [birth year] Age/S: 68/F [address] [facility] Unit #: [id number] Loc: [place] [address] Phys: Ilan Stein MD Acct: [id number] Dis Date: Status: DIS IN PHONE #: [phone] Exam Date: 12/08/2018 0540 FAX #: [phone] Reason: ileus EXAMS: CPT CODE: [id number] XR ABDOMEN 2V 91072 REASON FOR EXAM: ileus EXAM ORDER DATE: [...] 0730 Reported an d signed by: Brayan Troo M.D. CC: Ilan Stein Technologist: OCTAVIO VASQUEZ JR Trnscrd Date/Time/By: 12/08/2018 (01) : By: Rodrigo Orig Print D/T: S: 12/08/2018 (0745) PAGE 1 Signed Report BASIC METABOLIC PANEL 2018-12-08 07:14:00* Test Item Value Reference Range Interpretation Comments SODIUM (test code = NA) 139 mmol/L 136-145 N POTASSIUM (test code = K) 2.5 mmol/L 3.5-5.1 LL Re sults called to [id number] by IVANA 12/08/18 0713Critical results verified and [...] code = CA) 7.4 mg/dL 8.5-10.1 L [id number] 07:14:00* Test Item Value Reference Range Interpretation Comments PHOSPHORUS (test code = PHOS) 2.1 mg/dL 2.5-4.9 L [id number] 07:14:00* Test Item Value Reference Range Interpretation Comments MAGNESIUM (test code = MAG) 1.5 mg/dL 1.8-2.4 L CALCIUM [id number] 07:14:00* Test Item Value Reference Range Interpretation Comments CALCIUM IONIZED (test code = ERICH) 1.15 mmol/L 1.12-1.32 N CBC W/MANUAL [id number] 06:58:00* Test Item Value Reference Range Interpretation Comments WHITE BLOOD CELL (test code = WBC) 11.8 K/mm3 4.5-12.5 N RED BLOOD CELL (test code = RBC) 2.50 mill/mm3 3.7-5.2 L HEMOGLOBIN (test code = HGB) 7.2 gram/dL 11.5-15.5 L HEMATOCRIT (test code = HCT) 21.6 % 36.0-46.0 LL Results called to [id number] by ARMAND 12/08/18 0656Critical results verified and [...] MORPHOLOGY (test code = PLTMORPH) CBC W/MANUAL [id number] 06:58:00* Test Item Value Reference Range Interpretation Comments WHITE BLOOD CELL (test code = WBC) 11.8 K/mm3 4.5-12.5 N RED BLOOD CELL (test code = RBC) 2.50 mill/mm3 3.7-5.2 L HEMOGLOBIN (test code = HGB) 7.2 gram/dL 11.5-15.5 L HEMATOCRIT (test code = HCT) 21.6 % 36.0-46.0 LL Results called to [id number] by ARMAND 12/08/18 0656Critical results verified and [...] MORPHOLOGY (test code = PLTMORPH) CBC W/MANUAL [id number] 06:58:00* Test Item Value Reference Range Interpretation Comments WHITE BLOOD CELL (test code = WBC) 11.8 K/mm3 4.5-12.5 N RED BLOOD CELL (test code = RBC) 2.50 mill/mm3 3.7-5.2 L HEMOGLOBIN (test code = HGB) 7.2 gram/dL 11.5-15.5 L HEMATOCRIT (test code = HCT) 21.6 % 36.0-46.0 LL Results called to [id number] by ARMAND 12/08/18 0656Critical results verified and [...] MORPHOLOGY (test code = PLTMORPH) CBC W/MANUAL [id number] 06:58:00* Test Item Value Reference Range Interpretation Comments WHITE BLOOD CELL (test code = WBC) 11.8 K/mm3 4.5-12.5 N RED BLOOD CELL (test code = RBC) 2.50 mill/mm3 3.7-5.2 L HEMOGLOBIN (test code = HGB) 7.2 gram/dL 11.5-15.5 L HEMATOCRIT (test code = HCT) 21.6 % 36.0-46.0 LL Results called to [id number] by ARMAND 12/08/18 0656Critical results verified and [...] MORPHOLOGY (test code = PLTMORPH) CBC W/MANUAL [id number] 06:58:00* Test Item Value Reference Range Interpretation Comments WHITE BLOOD CELL (test code = WBC) 11.8 K/mm3 4.5-12.5 N RED BLOOD CELL (test code = RBC) 2.50 mill/mm3 3.7-5.2 L HEMOGLOBIN (test code = HGB) 7.2 gram/dL 11.5-15.5 L HEMATOCRIT (test code = HCT) 21.6 % 36.0-46.0 LL Results called to [id number] by ARMAND 12/08/18 0656Critical results verified and [...] MORPHOLOGY (test code = PLTMORPH) BASIC METABOLIC [id number] 06:31:00* Test Item Value Reference Range Interpretation [...] CALCIUM (test code = CA) mg/dL 8.5-10.1 [id number] 06:31:00* Test Item Value Reference Range Interpretation Comments PHOSPHORUS (test code = PHOS) mg/dL 2.5-4.9 [id number] 06:31:00* Test Item Value Reference Range Interpretation Comments MAGNESIUM (test code = MAG) mg/dL 1.8-2.4 CALCIUM [id number] 06:31:00* Test Item Value Reference Range Interpretation Comments CALCIUM IONIZED (test code = ERICH) 1.15 mmol/L 1.12-1.32 N LACTIC [id number] 22:14:00* Test Item Value Reference Range Interpretation Comments LACTIC ACID (test code = LACT) 1.9 mmol/L 0.4-1.9 N LACTIC [id number] 18:13:00* Test Item Value Reference Range Interpretation Comments LACTIC ACID (test code = LACT) 2.1 mmol/L 0.4-1.9 Results called to [id number] by V.LAB.LT 12/07/18 1813Critical results verified and read back by Nurse? Y THYROID STIMULATING [id number] 16:34:00* Test Item Value Reference Range Interpretation Comments THYROID STIMULATING HORMONE (test code = TSH) 3.340 uIU/mL 0.36-3.7 4 N TSH REFERENCE RANGES: EUTHYROID: 0.35 - 4.3 mIU/mL HYPO : > 5.5 mIU/mL HYPER : < 0.35 mIU/mL - XR CHEST 1 [id number] 16:26:00 FAX: Ilan Holt MD [place]: B St: DIS FAX: Charo Iraheta MD [phone] Name: MOJGAN CUMMINGS [facility] : 1950 Age/S: 68/F [address] [facility] Unit #: [id number] Loc: [place] [address] Phys: Charo Iraheta MD Acct: [id number] Dis Date: Status: DIS IN PHONE #: [phone] Exam Date: 12/07/2018 1505 FAX #: [phone] Reason: POST CENTRAL LINE PLACEMENT EXAMS: CPT CODE: [id number] XR CHEST 1 V 07256 EXAM: Chest x-ray, one view; INFORMATION: Sepsis; status post line placement; IMPRESSION: 1. Well-positioned right subclavian central line; its tip is at the SVC/right atrial junction. 2. No evidence of pneumothorax and 3. No further changes; advanced osteoarthritis of both shoulder joints. E lectronically Signed by Crispin Gates on 11/18 at 6419 Reported and signed by: Kimmie Gates M.D. CC: Ilan Stein; Charo Iraheta MD Technologist: Nida ALEXANDRA(R); Maria Guadalupe Gonzalez (R) Trnnmrd Date/Time/By: 12/07/2018 (9788) : By: Omar O rig Print D/T: S: 12/07/2018 (5944) PAGE 1 Signed Report - XR CHEST 1 [id number] 16:26:00 FAX: Ilan Holt MD [place]: B St: ADM FAX: Charo Iraheta MD [phone] Name: MOJGAN CUMMINGS [facility] : 1950 Age/S: 68/F [address] [facility] Unit #: [id number] Loc: [address] [address] Phys: Charo Iraheta MD Acct: [id number] Dis Date: Status: ADM IN PHONE #: [phone] Exam Date: 12/07/2018 1505 FAX #: [phone] Reason: POST CENTRAL LINE PLACEMENT EXAMS: CPT CODE: [id number] XR CHEST 1 V 65734 EXAM: Chest x-ray, one view; INFORMATION: Sepsis; status post line placement; IMPRESSION: 1. Well-positioned right subclavian central line; its tip is at the SVC/right atrial junction. 2. No evidence of pneumothorax and 3. No further changes; advanced osteoarthritis of both shoulder joints. E lectronically Signed by Crispin Gates on 11/18 at 5615 Reported and signed by: Kimmie Gates M.D. CC: Ilan Stein; Charo Iraheta MD Technologist: Nida ALEXANDRA(R); Maria Guadalupe Gonzalez (R) Trnscrd Date/Time/By: 12/07/2018 (0580) : By: Omar O rig Print D/T: S: 12/07/2018 (4449) PAGE 1 Signed Report - XR CHEST 1 [id number] 16:26:00 FAX: Ilan Holt MD [place]: St: DIS FAX: Charo Iraheta MD [phone] Name: MOJGAN CUMMINGS [facility] : 1950 Age/S: 68/F [address] [facility] Unit #: [id number] Loc: [place] [address] Phys: Charo Iraheta MD Acct: [id number] Dis Date: Status: DIS IN PHONE #: [phone] Exam Date: 12/07/2018 1507 FAX #: [phone] Reason: POST CENTRAL LINE PLACEMENT EXAMS: CPT CODE: [id number] XR CHEST 1 V 00569 EXAM: Chest x-ray, one view; INFORMATION: Sepsis; status post line placement; IMPRESSION: 1. Well-positioned right subclavian central line; its tip is at the SVC/right atrial junction. 2. No evidence of pneumothorax and 3. No further changes; advanced osteoarthritis of both shoulder joints. E lectronically Signed by Crispin Gates on 11/18 at 0721 Reported and signed by: Kimmie Gates M.D. CC: Ilan Stein; Charo Iraheta MD Technologist: Nida ALEXANDRA(R); Maria Guadalupe Gonzalez (R) Trnnmrd Date/Time/By: 12/07/2018 (3491) : By: Omar O rig Print D/T: S: 12/07/2018 (9942) PAGE 1 Signed Report LACTIC [id number] 14:35:00* Test Item Value Reference Range Interpretation Comments LACTIC ACID (test code = LACT) 2.2 mmol/L 0.4-1.9 HH Results called to [id number] by [email or web address] 12/07/18 1434Critical results verified and read back by Nurse? Y CBC W/MANUAL [id number] 09:38:00* Test Item Value Reference Range Interpretation Comments WHITE BLOOD CELL (test code = WBC) 11.5 K/mm3 4.5-12.5 N RED BLOOD CELL (test code = RBC) 2.41 mill/mm3 3.7-5.2 L HEMOGLOBIN (test code = HGB) 6.8 gram/dL 11.5-15.5 L HEMATOCRIT (test code = HCT) 21.6 % 36.0-46.0 LL Results called to [id number] by ARMAND 12/07/18 0738Critical results verified and [...] FORMS (test code = IMMAT) 0 % [id number] 08:07:00* Test Item Value Reference Range Interpretation Comments TROPONIN-I (test code = TROPI) 0.351 ng/mL 0-0.045 HH Results called to TAPAN CHOU7454by V.LAB.OA 12/07/18 0807Critical results verified and read back by Nurse? Y BASIC METABOLIC [id number] 07:45:00* Test Item Value Reference Range Interpretation [...] code = CA) 7.3 mg/dL 8.5-10.1 L [id number] 07:45:00* Test Item Value Reference Range Interpretation Comments PHOSPHORUS (test code = PHOS) 2.6 mg/dL 2.5-4.9 N [id number] 07:45:00* Test Item Value Reference Range Interpretation Comments MAGNESIUM (test code = MAG) 2.2 mg/dL 1.8-2.4 N CALCIUM [id number] 07:45:00* Test Item Value Reference Range Interpretation Comments CALCIUM IONIZED (test code = ERICH) 1.16 mmol/L 1.12-1.32 N CBC W/MANUAL [id number] 07:38:00* Test Item Value Reference Range Interpretation Comments WHITE BLOOD CELL (test code = WBC) 11.5 K/mm3 4.5-12.5 N RED BLOOD CELL (test code = RBC) 2.41 mill/mm3 3.7-5.2 L HEMOGLOBIN (test code = HGB) 6.8 gram/dL 11.5-15.5 L HEMATOCRIT (test code = HCT) 21.6 % 36.0-46.0 LL Results called to [id number] by V.LAB.LDB 12/07/18 0738Critical results verified and [...] MORPHOLOGY (test code = PLTMORPH) CBC W/MANUAL [id number] 07:38:00* Test Item Value Reference Range Interpretation Comments WHITE BLOOD CELL (test code = WBC) 11.5 K/mm3 4.5-12.5 N RED BLOOD CELL (test code = RBC) 2.41 mill/mm3 3.7-5.2 L HEMOGLOBIN (test code = HGB) 6.8 gram/dL 11.5-15.5 L HEMATOCRIT (test code = HCT) 21.6 % 36.0-46.0 Results called to [id number] by ARMAND 12/07/18 0738Critical results verified and [...] MORPHOLOGY (test code = PLTMORPH) CBC W/MANUAL [id number] 07:38:00* Test Item Value Reference Range Interpretation Comments WHITE BLOOD CELL (test code = WBC) 11.5 K/mm3 4.5-12.5 N RED BLOOD CELL (test code = RBC) 2.41 mill/mm3 3.7-5.2 L HEMOGLOBIN (test code = HGB) 6.8 gram/dL 11.5-15.5 L HEMATOCRIT (test code = HCT) 21.6 % 36.0-46.0 Results called to [id number] by ARMAND 12/07/18 0738Critical results verified and [...] MORPHOLOGY (test code = PLTMORPH) CBC W/MANUAL [id number] 07:38:00* Test Item Value Reference Range Interpretation Comments WHITE BLOOD CELL (test code = WBC) 11.5 K/mm3 4.5-12.5 N RED BLOOD CELL (test code = RBC) 2.41 mill/mm3 3.7-5.2 L HEMOGLOBIN (test code = HGB) 6.8 gram/dL 11.5-15.5 L HEMATOCRIT (test code = HCT) 21.6 % 36.0-46.0 LL Results called to [id number] by V.LAB.KENNEY 12/07/18 0738Critical results verified and [...] MORPHOLOGY (test code = PLTMORPH) CBC W/MANUAL [id number] 07:38:00* Test Item Value Reference Range Interpretation Comments WHITE BLOOD CELL (test code = WBC) 11.5 K/mm3 4.5-12.5 N RED BLOOD CELL (test code = RBC) 2.41 mill/mm3 3.7-5.2 L HEMOGLOBIN (test code = HGB) 6.8 gram/dL 11.5-15.5 L HEMATOCRIT (test code = HCT) 21.6 % 36.0-46.0 LL Results called to [id number] by V.LAB.LDB 12/07/18 0738Critical results verified and [...] MORPHOLOGY (test code = PLTMORPH) BASIC METABOLIC [id number] 07:32:00* Test Item Value Reference Range Interpretation [...] CALCIUM (test code = CA) mg/dL 8.5-10.1 [id number] 07:32:00* Test Item Value Reference Range Interpretation Comments PHOSPHORUS (test code = PHOS) mg/dL 2.5-4.9 [id number] 07:32:00* Test Item Value Reference Range Interpretation Comments MAGNESIUM (test code = MAG) mg/dL 1.8-2.4 CALCIUM [id number] 07:32:00* Test Item Value Reference Range Interpretation Comments CALCIUM IONIZED (test code = ERICH) 1.16 mmol/L 1.12-1.32 N - XR ABDOMEN AP 1 [id number] 07:19:00 FAX: Ilan Holt MD [place]: St: DIS FAX: Bobby Meng NP [phone] Name: MOJGAN CUMMINGS [facility] : 1950 Age/S: 68/F [address] [facility] Unit #: [id number] Loc: [place] [address] Phys: Bobby Roberts NP Acct: [id number] Dis Date: Status: DIS IN PHONE #: [phone] Exam Date: 12/07/2018 0656 FAX #: [phone] Reason: Ileus? EXAMS: CPT CODE: [id number] XR ABDOMEN AP 1 V 16063 REASON FOR EXAM: Ileus?, GI BLEED, PEG [...] M.D. CC: Ilan Stein; Bobby Roberts NP Technologist: Sachi Mo) Trnnmbrigid Date/Time/By: 12/07/2018 (0719) : By: Rodrigo Orig Print D/T: S: 12/07/2018 (7606) PAGE 1 Signed Report - XR ABDOMEN AP 1 [id number] 07:19:00 FAX: Ilan Holt MD [place]: St: ADM FAX: Bobby Meng NP [phone] Name: MOJGAN CUMMINGS [facility] : 1950 Age/S: 68/F [address] [facility] Unit #: [id number] [address] [address] Phys: Bobby Roberts DOCTOR CHIROPRACTIC Acct: [id number] Dis Date: Status: ADM IN PHONE #: [phone] Exam Date: 12/07/2018 0656 FAX #: [phone] Reason: Ileus? EXAMS: CPT CODE: [id number] XR ABDOMEN AP 1 V 98589 REASON FOR EXAM: Ileus?, GI BLEED, PEG TUBE PULLED OUT,SEVERE SEPSIS EXAM ORDER DATE: 12/07/2018 12:00 AM Att ending MLatrell: Bobby Roberts NP PROCEDURE: - XR ABDOMEN [...] Stein; Bobby Roberts NP Technol ogist: Sachi Mo) Trnscrd Date/Time/ By: 12/07/2018 (718) : By: Rodrigo Orig Print D/T: S: 12/07/2018 (0 550) PAGE 1 Signed Report - XR ABDOMEN AP 1 [id number] 07:19:00 FAX: Ilan Holt MD [place]: St: DIS FAX: Bobby Meng DOCTOR CHIROPRACTIC [phone] Name: MOJGAN CUMMINGS [facility] : 1950 Age/S: 68/F [address] [facility] Unit #: [id number] Loc: [place] [address] Phys: Bobby Roberts DOCTOR CHIROPRACTIC Acct: [id number] Dis Date: Status: DIS IN PHONE #: [phone] Exam Date: 12/07/2018 0656 FAX #: [phone] Reason: Ileus? EXAMS: CPT CODE: [id number] XR ABDOMEN AP 1 V 85805 REASON FOR EXAM: Ileus?, GI BLEED, PEG [...] Stein; Bobby Roberts NP Technol ogist: Sachi Mo) Trnscrd Date/Time/ By: 12/07/2018 (63) : By: [email or web address] Orig Print D/T: S: 12/07/2018 (0 119) PAGE 1 Signed Report - XR CHEST 1 [id number] 06:18:00 FAX: lIan Holt MD [place]: St: DIS FAX: Charo Iraheta MD [phone] Name: MOJGAN CUMMINGS [facility] : 1950 Age/S: 68/F [address] Unit #: [id number] Loc: [place] [address] Phys: Charo Iraheta MD Acct: [id number] Dis Date: Status: DIS IN PHONE #: [phone] Exam Date: 12/07/2018518 FAX #: [phone] Reason: sob EXAMS: CPT CODE: [id number] XR CHEST 1 V 31874 REASON FOR EXAM: sob, GI BLEED, PEG [...] Court Stein; Charo Iraheta MD Technologist: OCTAVIO VASQUEZ JR; St lucero Darling Trnscrd Date/Time/By: 12/07/2018 (0618) : By : [email or web address] Orig Print D/T: S: 12/07/2018 (0604) PAGE 1 Signed Report - XR CHEST 1 [id number] 06:18:00 FAX: Ilan Holt MD [place]: St: ADM FAX: Charo Iraheta MD [phone] Name: MOJGAN CUMMINGS [facility] : 1950 Age/S: 68/F [address] [facility] Unit #: [id number] Loc: [address] [address] Phys: Charo Iraheta MD Acct: [id number] Dis Date: Status: ADM IN PHONE #: [phone] Exam Date: 12/07/2018518 FAX #: [phone] Reason: sob EXAMS: CPT CODE: [id number] XR CHEST 1 V 81368 REASON FOR EXAM: sob, GI BLEED, PEG [...] Stein; Charo Iraheta MD Technologist: OCTAVIO Darling Trnnmrd Date/Time/By: 12/07/2018 (0618) : By: [email or web address] Orig Print D/T: S: 12/07/2018 (0621) PAGE 1 Signed Report - XR CHEST 1 [id number] 06:18:00 FAX: Ilan Holt MD [place]: St: DIS FAX: Charo Iraheta MD [phone] Name: MOJGAN CUMMINGS [facility] : 1950 Age/S: 68/F [address] [facility] Unit #: [id number] Loc: [place] [address] Phys: Charo Iraheta MD Acct: [id number] Dis Date: Status: DIS IN PHONE #: [phone] Exam Date: 12/07/2018518 FAX #: [phone] Reason: sob EXAMS: CPT CODE: [id number] XR CHEST 1 V 40770 REASON FOR EXAM: sob, GI BLEED, PEG [...] Stein; Charo Iraheta MD Technologist: OCTAVIO VASQUEZ JR; Abigail Darling Trnnmrd Date/Time/By: 12/07/2018 (0618) : By: HarryVTL Orig Print D/T: S: 12/07/2018 (0674) PAGE 1 Signed Report LACTIC [id number] 19:19:00* Test Item Value Reference Range Interpretation Comments LACTIC ACID (test code = LACT) 4.0 mmol/L 0.4-1.9 HH Results called to KPH8419 by V.LAB. 12/06/18 1918Critical results verified and read back by Nurse? Y LACTIC [id number] 15:54:00* Test Item Value Reference Range Interpretation Comments LACTIC ACID (test code = LACT) 4.0 mmol/L 0.4-1.9 HH Results called to [id number] by V.LAB.[facility] 12/06/18 1553Critical results verified and read back by Nurse? Y LACTIC [id number] 11:37:00* Test Item Value Reference Range Interpretation Comments LACTIC ACID (test code = LACT) 4.2 mmol/L 0.4-1.9 HH Results called to AKYUTCGI0764mz V.LAB.KN 12/06/18 1137Critical results verified and read back by Nurse? Y - XR ABDOMEN AP 1 [id number] 11:00:00 FAX: Ilan Holt MD [place]: B St: DIS FAX: Charo Iraheta MD [phone] Name: MOJGAN CUMMINGS [facility] : 1950 Age/S: 68/F [address] Unit #: [id number] Loc: [place] [address] Phys: Charo Iraheta MD Acct: [id number] Dis Date: Status: DIS IN PHONE #: [phone] Exam Date: 12/06/2018 [facility] FAX #: [phone] Reason: DISTENDED ABD EXAMS: CPT CODE: [id number] XR ABDOMEN AP 1 V 80971 HISTORY: Distended abdomen. COMPARISON: Same day. Gastrostomy [...] Ilan Stein; Charo Iraheta MD Technologist: JERAMIE LOPEZ, RT(R); Nida Gunn RT(R) Trnscrd Date/Time/By: 12/06/2018 (1100) : By: [email or web address] Orig Print D/T: S: 12/06/2018 (9119) PAGE 1 Signed Report - XR ABDOMEN AP 1 V 2018-12-06 11:00:00 FAX: Ilan Holt MD [place]: B St: [facility] FAX: Charo Iraheta MD [phone] Name: MOJGAN CUMMINGS [facility] : 1950 Age/S: 68/F [address] [facility] Unit #: [id number] Loc: V.[address] [place] [address] Phys: Charo Iraheta MD Acct: [id number] Dis Date: Status: ADM IN PHONE #: [phone] Exam Date: 12/06/2018 1038 FAX #: [phone] Reason: DISTENDED ABD EXAMS: CPT CODE: [id number] XR ABDOMEN AP 1 V 42294 HISTORY: Distended abdomen. COMPARISON: Same day. Gastrostomy [...] Ilan Stein; Charo Iraheta MD Technologist: JERAMIE LOPEZ, RT(R); Nida Gunn RT(R) Trnscrd Date/Time/By: 12/06/2018 (1100) : By: [email or web address] Orig Print D/T: S: 12/06/2018 (0362) PAGE 1 Signed Report - XR ABDOMEN AP 1 V 2018-12-06 11:00:00 FAX: Ilan Holt MD [place]: B St: DIS FAX: Charo Iraheta MD [phone] Name: MOJGAN CUMMINGS [facility] : 1950 Age/S: 68/F [address] [facility] Unit #: [id number] Loc: [place] [address] Phys: Charo Iraheta MD Acct: [id number] Dis Date: Status: DIS IN PHONE #: [phone] Exam Date: 12/06/2018 1038 FAX #: [phone] Reason: DISTENDED ABD EXAMS: CPT CODE: [id number] XR ABDOMEN AP 1 V 44756 HISTORY: Distended abdomen. COMPARISON: Same day. Gastrostomy [...] Ilan Stein; Charo Iraheta MD Technologist: JERAMIE LOPEZ, RT(R); Nida Gunn RT(R) [facility] Date/Time/By: 12/06/2018 (1100) : By: [email or web address] Orig Print D/T: S: 12/06/2018 (3768) PAGE 1 Signed Report - XR ABDOMEN AP 1 V 2018-12-06 06:33:00 FAX: Ilan Holt MD [place]: B St: DIS FAX: Charo Iraheta MD [phone] Name: MOJGAN CUMMINGS [facility] : 1950 Age/S: 68/F [address] [facility] Unit #: [id number] Loc: [place] [address] Phys: Charo Iraheta MD Acct: [id number] Dis Date: Status: DIS IN PHONE #: [phone] Exam Date: 12/06/2018520 FAX #: [phone] Reason: FOLLOW UP ON PREVIOUS DAYS FINDINGS EXAMS: CPT CODE: [id number] XR ABDOMEN AP 1 V 04447 REASON FOR EXAM: FOLLOW UP ON PREVIOUS [...] and signed by: Brayan Toro M.D. CC: Ilna Granger; Charo Iraheta MD Technologist: OCTAVIO Darling Trnscrd Date/Time/By: 12/06/2018 (06 ) : By: HarryVTL Orig Print D/T: S: 12/06/2018 (0636) PAGE 1 Signed Report - XR ABDOMEN AP 1 [id number] 06:33:00 FAX: Ilan Holt MD [place]: St: [facility] FAX: Charo Iraheta MD [phone] Name: MOJGAN CUMMINGS [facility] : 1950 Age/S: 68/F [address] [facility] Unit #: [id number] Loc: [address] [place] [address] Phys: Charo Iraheta MD Acct: [id number] Dis Date: Status: ADM IN PHONE #: [phone] Exam Date: 12/06/2018520 FAX #: [phone] Reason: FOLLOW UP ON PREVIOUS DAYS FINDINGS EXAMS: CPT CODE: [id number] XR ABDOMEN AP 1 V 87789 REASON FOR EXAM: FOLLOW UP ON PREVIOUS [...] By: HarryVTL Orig Print D/T: S: 12/06/2018 (0692) PAGE 1 Signed Report - XR ABDOMEN AP 1 [id number] 06:33:00 FAX: Ilan Holt MD [place]: B St: DIS FAX: Charo Iraheta MD [phone] Name: MOJGAN CUMMINGS [facility] : 1950 Age/S: 68/F [address] [facility] Unit #: [id number] Loc: [facility] [place] [address] Phys: Charo Iraheta MD Acct: [id number] Dis Date: Status: DIS IN PHONE #: [phone] Exam Date: 12/06/2018520 FAX #: [phone] Reason: FOLLOW UP ON PREVIOUS DAYS FINDINGS EXAMS: CPT CODE: [id number] XR ABDOMEN AP 1 V 78638 REASON FOR EXAM: FOLLOW UP ON PREVIOUS [...] Trnscrd Date/Time/By: 12/06/2018 (0633 ) : By: HarryVTL Orig Print D/T: S: 12/06/2018 (0635) PAGE 1 Signed Report - XR CHEST 1 [id number] 06:32:00 FAX: Ilan Holt MD [place]: St: DIS FAX: Charo Iraheta MD [phone] Name: MOJGAN CUMMINGS [facility] : 1950 Age/S: 68/F [address] [facility] Unit #: [id number] Loc: [place] [address] Phys: Charo Iraheta MD Acct: [id number] Dis Date: Status: DIS IN PHONE #: [phone] Exam Date: 12/06/2018520 FAX #: [phone] Reason: sob EXAMS: CPT CODE: [id number] XR CHEST 1 V 33589 REASON FOR EXAM: sob EXAM ORDER DATE: [...] Stein; Charo Iraheta MD Technologist: OCTAVIO Darling Trnnmrd Date/Time/By: 12/06/2018 (0632) : By: HarryNVL Orig Print D/T: S: 12/06/2018 (0635) PAGE 1 Signed Report - XR CHEST 1 [id number] 06:32:00 FAX: Ilan Holt MD [place]: St: [facility] FAX: Charo Iraheta MD [phone] Name: MOJGAN CUMMINGS [facility] : 1950 Age/S: 68/F [address] [facility] Unit #: [id number] Loc: [address] [place] [address] Phys: Charo Iraheta MD Acct: [id number] Dis Date: Status: ADM IN PHONE #: [phone] Exam Date: 12/06/2018520 FAX #: [phone] Reason: sob EXAMS: CPT CODE: [id number] XR CHEST 1 V 15820 REASON FOR EXAM: sob EXAM ORDER DATE: [...] By: Rodrigo Orig Print D/T: S: 12/07/19 (1322) PAGE 1 Signed Report - XR CHEST 1 [id number] 06:32:00 FAX: Ilan Holt MD [place]: St: DIS FAX: Charo Iraheta MD [phone] Name: MOJGAN CUMMINGS [facility] : 1950 Age/S: 68/F [address] [facility] Unit #: [id number] [place] [address] Phys: Charo Iraheta MD Acct: [id number] Dis Date: Status: DIS IN PHONE #: [phone] Exam Date: 12/06/2018520 FAX #: [phone] Reason: sob EXAMS: CPT CODE: [id number] XR CHEST 1 V 10668 REASON FOR EXAM: sob EXAM ORDER DATE: [...] Trnscrd Date/ Time/By: 12/06/2018 (0632) : By: HarryVTL Orig Print D/T: S: 12/07/19 19 (5457) PAGE 1 Signed Report CBC W/MANUAL [id number] 06:22:00* Test Item Value Reference Range Interpretation [...] code = IMMAT) 0 % BASIC METABOLIC [id number] 06:04:00* Test Item Value Reference Range Interpretation [...] code = CA) 6.7 mg/dL 8.5-10.1 L [id number] 06:04:00* Test Item Value Reference Range Interpretation Comments PHOSPHORUS (test code = PHOS) 2.1 mg/dL 2.5-4.9 L [id number] 06:04:00* Test Item Value Reference Range Interpretation Comments MAGNESIUM (test code = MAG) 1.2 mg/dL 1.8-2.4 L [id number] 06:04:00* Test Item Value Reference Range Interpretation Comments TROPONIN-I (test code = TROPI) 0.100 ng/mL 0-0.045 Results called to [id number] by V.LAB.JP1 12/06/18 0603Critical results verified and read back by Nurse? Y CBC W/MANUAL [id number] 05:38:00* Test Item Value Reference Range Interpretation [...] MORPHOLOGY (test code = PLTMORPH) CBC W/MANUAL [id number] 05:38:00* Test Item Value Reference Range Interpretation [...] MORPHOLOGY (test code = PLTMORPH) CBC W/MANUAL [id number] 05:38:00* Test Item Value Reference Range Interpretation [...] MORPHOLOGY (test code = PLTMORPH) CBC W/MANUAL [id number] 05:37:00* Test Item Value Reference Range Interpretation [...] MORPHOLOGY (test code = PLTMORPH) CBC W/MANUAL [id number] 05:37:00* Test Item Value Reference Range Interpretation [...] PLATELET MORPHOLOGY (test code = PLTMORPH) GENTAMYCIN [id number] 20:40:00* Test Item Value Reference Range Interpretation Comments GENTAMYCIN PEAK (test code = GENTP) 6.3 ug/mL 5.0-10.0 N [id number] 11:32:00* Test Item Value Reference Range Interpretation Comments TROPONIN-I (test code = TROPI) <0.015 ng/mL 0-0.045 N SPECIMEN COMMENTS: FOR SPECIMEN ISSUES CALL RN [id number] XR ABDOMEN AP 1 V 2018-12-05 08:57:00 FAX: Ilan Holt MD [place]: B St: DIS FAX: Charo Iraheta MD [phone] Name: ZOILAMOJGAN MOLINA [facility] : 1950 Age/S: 68/F [address] Unit #: [id number] Loc: [place] [address] Phys: Charo Iraheta MD Acct: [id number] Dis Date: Status: DIS IN PHONE #: [phone] Exam Date: 12/05/2018808 FAX #: [phone] Reason: stomach distension EXAMS: CPT CODE: [id number] XR ABDOMEN AP 1 V 88527 HISTORY: Stomach distention. COMPARISON: CT abdomen and [...] By: [email or web address] Orig Print D/T: S: 12/05/2018 (0937) PAGE 1 Signed Report - XR ABDOMEN AP 1 [id number] 08:57:00 FAX: Ilan Holt MD [place]: B St: [facility] FAX: Charo Iraheta MD [phone] Name: MOJGAN CUMMINGS [facility] : 1950 Age/S: 68/F [address] [facility] Unit #: [id number] Loc: [address] [address] Phys: Charo Iraheta MD Acct: [id number] Dis Date: Status: ADM IN PHONE #: [phone] Exam Date: 12/05/2018808 FAX #: [phone] Reason: stomach distension EXAMS: CPT CODE: [id number] XR ABDOMEN AP 1 V 00701 HISTORY: Stomach distention. COMPARISON: CT abdomen and [...] Trnscrd Date/Time/By: 12/05/2018 (0 857) : By: [email or web address] Orig Print D/T: S: 12/05/2018 (0955) PAGE 1 Signed Report - XR ABDOMEN AP 1 [id number] 08:57:00 FAX: Ilan Holt MD [place]: B St: DIS FAX: Charo Iraheta MD [phone] Name: MOJGAN CUMMINGS [facility] : 1950 Age/S: 68/F [address] [facility] Unit #: [id number] Loc: [place] [address] Phys: Charo Iraheta MD Acct: [id number] Dis Date: Status: DIS IN PHONE #: [phone] Exam Date: 12/05/2018 08 FAX #: [phone] Reason: stomach distension EXAMS: CPT CODE: [id number] XR ABDOMEN AP 1 V 37185 HISTORY: Stomach distention. COMPARISON: CT abdomen and [...] CC: Ilan Stein; Charo Iraheta MD Technologist: YAMILE Fowler RT(R); STUDENT TECHNOLOGIST Trnscrd Date/Time/By: 12/05/2018 (0 857) : By: [email or web address] Orig Print D/T: S: 12/05/2018 (9063) PAGE 1 Signed Report - XR CHEST 1 [id number] 06:44:00 FAX: Ilan Holt MD [place]: St: DIS FAX: Ashley Juarez NP [phone] Name: MOJGAN CUMMINGS [facility] : 1950 Age/S: 68/F [address] [facility] Unit #: [id number] Loc: [place] [address] Phys: Ashley Hendrix NP Acct: [id number] Dis Date: Status: DIS IN PHONE #: [phone] Exam Date: 12/05/2018526 FAX #: [phone] Reason: respiratory failure, aspiration EXAMS: CPT CODE: [id number] XR CHEST 1 V 49905 REASON FOR EXAM: respiratory failure, aspiration EXAM [...] Darling Trnscrd Date/Time/By: 12/05/2018 (0644) : By: [email or web address] Orig Print D/T: S: 12/05/2018 (0656) PAGE 1 Signed Report - XR CHEST 1 [id number] 06:44:00 FAX: Ilan Holt MD [place]: St: [facility] FAX: Ashley Juarez NP [phone] Name: MOJGAN CUMMINGS [facility] : 1950 Age/S: 68/F [address] [facility] Unit #: [id number] Loc: [address] [address] Phys: Ashley Hendrix NP Acct: [id number] Dis Date: Status: ADM IN PHONE #: [phone] Exam Date: 12/05/2018526 FAX #: [phone] Reason: respiratory failure, aspiration EXAMS: CPT CODE: [id number] XR CHEST 1 V 91630 REASON FOR EXAM: respiratory failure, aspiration EXAM [...] M.D. CC: Ilan Stein; Ashley Hendrix NP chnologist: OCTAVIO Darling Trnscrd Date/ Time/By: 12/05/2018 (0644) : By: [email or web address] Orig Print D/T: S: 12/06/19 (0612) PAGE 1 Signed Report - XR CHEST 1 [id number] 06:44:00 FAX: Ilan Holt MD [place]: St: DIS FAX: Ashley Juarez NP [phone] Name: MOJGAN CUMMINGS [facility] : 1950 Age/S: 68/F [address] [facility] Unit #: [id number] Loc: [place] [address] Phys: Ashley Hendrix NP Acct: [id number] Dis Date: Status: DIS IN PHONE #: [phone] Exam Date: 12/05/2018526 FAX #: [phone] Reason: respiratory failure, aspiration EXAMS: CPT CODE: [id number] XR CHEST 1 V 65829 REASON FOR EXAM: respiratory failure, aspiration EXAM [...] M.D. CC: Ilan Stein; Ashley Hendrix NP chnologist: OCTAVIO Darling Trnscrd Date/ Time/By: 12/05/2018 (0644) : By: [email or web address] Orig Print D/T: S: 12/06/19 (0656) PAGE 1 Signed Report COMPREHENSIVE METABOLIC [id number] 06:08:00* Test Item Value Reference Range Interpretation [...] reference range due to change in reagent. [id number] 06:08:00* Test Item Value Reference Range Interpretation Comments PHOSPHORUS (test code = PHOS) 1.8 mg/dL 2.5-4.9 L [id number] 06:08:00* Test Item Value Reference Range Interpretation Comments MAGNESIUM (test code = MAG) 1.1 mg/dL 1.8-2.4 L CALCIUM [id number] 06:08:00* Test Item Value Reference Range Interpretation Comments CALCIUM IONIZED (test code = ERICH) 1.25 mmol/L 1.12-1.32 N ARTERIAL BLOOD [id number] 06:05:00* Test Item Value Reference Range Interpretation Comments ARTERIAL BLOOD GAS PH (test code = PHA) 7.48 7.35-7.45 H ARTERIAL BLOOD GAS PCO2 (test code = PCO2A) 24.2 mm Hg 35-45 LL Results called [facility] and read [facility]; by Dilcia Hdz, [employer] ARTERIAL BLOOD GAS PO2 (test code = PO2A) 109.4 mmHg 80-100 H BICARBONATE TOTAL HCO3 (test code = HCO3) 17.7 mmol/L 23.0-27.0 L BASE EXCESS (test code = SHASHA) -4.9 mmol/L -3.0-5.0 LL Results called to and read back by [facility] 12/05/2018; by Dilcia Hdz, [employer] ABG O2 SATURATION (test code = SATA) [...] Results called to and read back by [facility] : - 12/05/2018; by Dilcia Hdz, [employer] METHEMOGLOBIN (test code = METHGB) 0.6 % 0.0-1.50 N O2 CONTENT (test code = O2CT) 11.2 % vol 18.0-22.0 L ARTERIAL BLOOD [id number] 06:04:00* Test Item Value Reference Range Interpretation Comments ARTERIAL BLOOD GAS PH (test code = PHA) 7.55 7.35-7.45 H Results called to and read back by [facility] : - 12/05/2018; by Dilcia Hdz, [employer] ARTERIAL BLOOD GAS PCO2 (test code = PCO2A) 24.8 mm Hg 35-45 LL Results called to and read back by [facility] : - 12/05/2018; by Dilcia Hdz, [employer] ARTERIAL BLOOD GAS PO2 (test code = [...] called to and read back by Renzo :03 - 12/05/2018; by Dilcia Hdz, [place] METHEMOGLOBIN (test code = METHGB) 0.3 % 0.0-1.50 N O2 CONTENT (test code = O2CT) 16.8 % vol 18.0-22.0 L [id number] 06:02:00* Test Item Value Reference Range Interpretation Comments GENTAMICIN (test code = GENT) 3.0 mg/mL 4-8.0 L GENTAMICIN TOXIC LEVEL: >12 UG/ML COMPREHENSIVE METABOLIC [id number] 05:59:00* Test Item Value Reference Range Interpretation [...] TOTAL (test code = ALKP) IUnit/L 45-117 [id number] 05:59:00* Test Item Value Reference Range Interpretation Comments PHOSPHORUS (test code = PHOS) mg/dL 2.5-4.9 [id number] 05:59:00* Test Item Value Reference Range Interpretation Comments MAGNESIUM (test code = MAG) mg/dL 1.8-2.4 CALCIUM [id number] 05:59:00* Test Item Value Reference Range Interpretation Comments CALCIUM IONIZED (test code = ERICH) 1.25 mmol/L 1.12-1.32 N COMPREHENSIVE METABOLIC [id number] 05:51:00* Test Item Value Reference Range Interpretation [...] TOTAL (test code = ALKP) IUnit/L 45-117 [id number] 05:51:00* Test Item Value Reference Range Interpretation Comments PHOSPHORUS (test code = PHOS) mg/dL 2.5-4.9 [id number] 05:51:00* Test Item Value Reference Range Interpretation Comments MAGNESIUM (test code = MAG) mg/dL 1.8-2.4 CALCIUM [id number] 05:51:00* Test Item Value Reference Range Interpretation Comments CALCIUM IONIZED (test code = ERICH) 1.25 mmol/L 1.12-1.32 N CBC W/AUTO [id number] 05:48:00* Test Item Value Reference Range Interpretation [...] NRBC#) 0.02 K/mm3 0.0-0.1 N BASIC METABOLIC [id number] 23:07:00* Test Item Value Reference Range Interpretation [...] = CA) 7.8 mg/dL 8.5-10.1 L HGB [id number] 22:32:00* Test Item Value Reference Range Interpretation Comments HEMOGLOBIN (test code = HGB) 7.7 gram/dL 11.5-15.5 L HEMATOCRIT (test code = HCT) 24.6 % 36.0-46.0 L BASIC METABOLIC [id number] 19:06:00* Test Item Value Reference Range Interpretation [...] CA) 8.1 mg/dL 8.5-10.1 L CBC W/MANUAL [id number] 17:48:00* Test Item Value Reference Range Interpretation [...] code = IMMAT) 1.7 % CBC W/MANUAL [id number] 17:12:00* Test Item Value Reference Range Interpretation [...] MORPHOLOGY (test code = PLTMORPH) CBC W/MANUAL [id number] 17:12:00* Test Item Value Reference Range Interpretation [...] MORPHOLOGY (test code = PLTMORPH) CBC W/MANUAL [id number] 17:12:00* Test Item Value Reference Range Interpretation [...] MORPHOLOGY (test code = PLTMORPH) CBC W/MANUAL [id number] 17:12:00* Test Item Value Reference Range Interpretation [...] MORPHOLOGY (test code = PLTMORPH) CBC W/MANUAL [id number] 17:12:00* Test Item Value Reference Range Interpretation [...] PLTEST) PLATELET MORPHOLOGY (test code = PLTMORPH) [id number] 15:12:00* Test Item Value Reference Range Interpretation Comments GLUBED (test code = GLUBED) 144 mg/dL 74-106 H Performed by certified collar shaper operator at [facility] [id number] 15:12:00* Test Item Value Reference Range Interpretation Comments GLUBED (test code = GLUBED) 88 mg/dL 74-106 N Performed by certified collar shaper operator at [facility] BASIC METABOLIC [id number] 09:57:00* Test Item Value Reference Range Interpretation [...] collected at 0600 with q6 hour CBC [id number] 09:29:00* Test Item Value Reference Range Interpretation Comments HEMOGLOBIN (test code = HGB) 9.3 gram/dL 11.5-15.5 L - XR CHEST 1 [id number] 09:06:00 FAX: Ilan Holt MD [place]: B St: DIS FAX: Ashley Juarez NP [phone] Name: MOJGAN CUMMINGS [facility] : 1950 Age/S: 68/F [address] [facility] Unit #: [id number] Loc: [place] [address] Phys: Ashley Hendrix NP Acct: [id number] Dis Date: Status: DIS IN PHONE #: [phone] Exam Date: 12/04/201847 FAX #: [phone] Reason: respiratory failure EXAMS: CPT CODE: [id number] XR CHEST 1 V 81197 HISTORY: Respiratory failure. COMPARISON: November 27, 2018. [...] By: [email or web address] Orig Print D/T: S: 12/04/2018 (0910) PAGE 1 Signed Report - XR CHEST 1 [id number] 09:06:00 FAX: Ilan Holt MD [place]: B St: ADM FAX: Ashley Juarez NP [phone] Name: MOJGAN CUMMINGS [facility] : 1950 Age/S: 68/F [address] Unit #: [id number] Loc: [place] [address] Phys: Ashley Hendrix NP Acct: [id number] Dis Date: Status: ADM IN PHONE #: [phone] Exam Date: 12/04/2018 0847 FAX #: [phone] Reason: respiratory failure EXAMS: CPT CODE: [id number] XR CHEST 1 V 30620 HISTORY: Respiratory failure. COMPARISON: November 27, 2018. [...] TECHNOLOGIST Trnscrd Date/Time/By: 12/04/2018 (0906) : By: [email or web address] Orig Print D/T: S: 12/04/2018 (0710) PAGE 1 Signed Report - XR CHEST 1 [id number] 09:06:00 FAX: Ilan Holt MD [place]: B St: DIS FAX: Ashley Juarez NP [phone] Name: MOJGAN CUMMINGS [facility] : 1950 Age/S: 68/F [address] Unit #: [id number] Loc: [place] [address] Phys: Ashley Hendrix NP Acct: [id number] Dis Date: Status: DIS IN PHONE #: [phone] Exam Date: 12/04/2018 0847 FAX #: [phone] Reason: respiratory failure EXAMS: CPT CODE: [id number] XR CHEST 1 V 53306 HISTORY: Respiratory failure. COMPARISON: November 27, 2018. Tracheostomy tube is in good position. No acute infiltrates, effusion or congestion is noted. The cardiac and mediastinal silhouette are within normal limits. IMPRESSION: No acute infiltrates, effusion or congestion. at 0906 Reported and signed by: Clem Grissom M.D. CC: Ilan Tariq am; Ashley Hendrix NP Technologist: Nida Gunn RT(R); STUDENT TECHNOLOGIST Trnscrd Date/Time/By: 12/04/2018 (905) : By: [email or web address] Orig Print D/T: S: 12/04/2018 (5721) PAGE 1 Signed Report LACTIC [id number] 06:59:00* Test Item Value Reference Range Interpretation Comments LACTIC ACID (test code = LACT) 0.8 mmol/L 0.4-1.9 N ARTERIAL BLOOD [id number] 05:57:00* Test Item Value Reference Range Interpretation Comments ARTERIAL BLOOD GAS PH (test code = PHA) 7.45 7.35-7.45 N ARTERIAL BLOOD GAS PCO2 (test code = PCO2A) 25.0 mm Hg 35-45 L Results called to and read back by [facility] 05: - 12/04/2018; by Ac Hernandez, [employer] ARTERIAL BLOOD GAS PO2 (test code = PO2A) 196.4 mmHg 80-100 H BICARBONATE TOTAL HCO3 (test code = HCO3) 17.0 mmol/L 23.0-27.0 L BASE EXCESS (test code = SHASHA) -5.6 mmol/L -3.0-5.0 LL Results called to and read back by [facility] 05:13 - 12/04/2018; by Ac Hernandez, [employer] ABG O2 SATURATION (test code = SATA) [...] Renzo 05:13 - 12/04/2018; by Ac Hernandez, [employer] METHEMOGLOBIN (test code = METHGB) 0.6 % 0.0-1.50 N O2 CONTENT (test code = O2CT) 15.3 % vol 18.0-22.0 L A-A GRADIENT (test code = AAGRADE) 57.8 mm Hg LACTIC [id number] 02:49:00* Test Item Value Reference Range Interpretation Comments LACTIC ACID (test code = LACT) 2.4 mmol/L 0.4-1.9 HH Results called to [id number] by V.LAB.RA1 12/04/18 0249Critical results verified and read back by Nurse? Y COMPREHENSIVE METABOLIC [id number] 02:49:00* Test Item Value Reference Range Interpretation [...] due to change in reagent. CBC W/MANUAL [id number] 02:26:00* Test Item Value Reference Range Interpretation [...] code = IMMAT) 1 % CBC W/MANUAL [id number] 02:12:00* Test Item Value Reference Range Interpretation [...] MORPHOLOGY (test code = PLTMORPH) CBC W/MANUAL [id number] 02:12:00* Test Item Value Reference Range Interpretation [...] MORPHOLOGY (test code = PLTMORPH) CBC W/MANUAL [id number] 02:12:00* Test Item Value Reference Range Interpretation [...] MORPHOLOGY (test code = PLTMORPH) CBC W/MANUAL [id number] 02:12:00* Test Item Value Reference Range Interpretation [...] MORPHOLOGY (test code = PLTMORPH) CBC W/MANUAL [id number] 02:12:00* Test Item Value Reference Range Interpretation [...] (PCT) (test code = PROCAL) 309.85 ng/ml HH Results called to [id number] by JOSEY 12/04/18 0137Critical results verified and [...] taking into account the patients history. HGB [id number] 00:25:00* Test Item Value Reference Range Interpretation Comments HEMOGLOBIN (test code = HGB) 8.7 gram/dL 11.5-15.5 L HEMATOCRIT (test code = HCT) 28.0 % 36.0-46.0 L [id number] 00:03:00* Test Item Value Reference Range Interpretation Comments POTASSIUM (test code = K) 5.2 mmol/L 3.5-5.1 H RE SULT VERIFIED BY REPEAT ANALYSIS ARTERIAL BLOOD [id number] 23:29:00* Test Item Value Reference Range Interpretation [...] O2CT) 15.6 % vol 18.0-22.0 L LACTIC [id number] 22:39:00* Test Item Value Reference Range Interpretation Comments LACTIC ACID (test code = LACT) 3.9 mmol/L 0.4-1.9 HH Results called to [id number] by VFayeLABAINSLEY 12/03/18 2238Critical results verified and read back by Nurse? Y LABEL ON PHLEABS DESK.V.LAB.QUR 12/03/18 1920 [id number] 22:22:00* Test Item Value Reference Range Interpretation Comments GLUBED (test code = GLUBED) > 500 mg/dL 74-106 HH [facility] Not[facility]~ PROTHROMBIN [id number] 22:11:00* Test Item Value Reference Range Interpretation [...] (2.5-3.5) IS PATIENT ON ANTICOAGULANTS? NTHROMBOPLASTIN TIME [id number] 22:11:00* Test Item Value Reference Range Interpretation Comments THROMBOPLASTIN TIME PARTIAL (test code = PTT) 40.3 seconds 25.0-36. 5 H IS PATIENT ON ANTICOAGULANTS? [id number] 22:02:00* Test Item Value Reference Range Interpretation Comments HEMOGLOBIN (test code = HGB) 9.4 gram/dL 11.5-15.5 L RESULT VERIFIED BY REPEAT ANALYSIS CHEMISTRY 8 [id number] 21:37:00* Test Item Value Reference Range Interpretation [...] GFRBED) 26 >6 0 LL CHEMISTRY 8 [id number] 21:37:00* Test Item Value Reference Range Interpretation [...] 0 LL - CT ABD PELVIS W/O [id number] 20:48:00 Name: MOJGAN CUMMINGS [facility] : 1950 Age/S: 68 / F [address] [facility] Unit #: [id number] Loc: [place] [address] Phys: Rikki Gomez MD Acct: [id number] Dis Date: Status: DIS IN PHONE #: [phone] Exam Date: 12/03/20182015 FAX #: [phone] Reason: bloody emesis EXAMS: CPT CODE: [id number] CT ABD PELVIS W/O CONT 72238 REASON FOR EXAM: bloody emesis EXAM ORDER DATE: 12/03/2018 3:19 PM Ordering M.D.: Rikki Gomez MD PROCEDURE: - CT [...] Signed Report - CT ABD PELVIS W/O [id number] 20:48:00 Name: MOJGAN CUMMINGS [facility] : 1950 Age/S: 68 / F [address] Unit #: [id number] Loc: [place] [address] Phys: Rikki Gomez MD Acct: [id number] Dis Date: Status: ADM IN PHONE #: [phone] Exam Date: 12/03/20182015 FAX #: [phone] Reason: bloody emesis EXAMS: CPT CODE: [id number] CT ABD PELVIS W/O CONT 13990 REASON FOR EXAM: bloody emesis EXAM ORDER [...] RT(R) CTDI: DLP: Trnscb Date/Time: 12/03/2018 (2047) Rodrigo Orig Print D/T: S: 12/03/2018 (2050) CTDI: DLP: PAGE 1 Signed Report - CT ABD PELVIS W/O [id number] 20:48:00 Name: MOJGAN CUMMINGS [facility] : 1950 Age/S: 68 / F [address] [facility] Unit #: [id number] Loc: [place], [place] [address] Phys: Julieta Gomez MD Acct: [id number] Di s Date: Status: DIS IN PHONE #: Exam Date: 12/03/20182015 FAX #: Reason: bloody emesis EXAMS: CPT CODE: [id number] CT ABD PELVIS W/O CONT 89189 REASON FOR EXAM: bloody emesis EXAM ORDER [...] CTDI: DLP: Trnscb Date/Time : 12/03/2018 (2047) t.JOSELYNR.VTL Orig Print D/T: S: 12/04/19 (2050) PAGE 1 Signed Report LACTIC [id number] 19:19:00* Test Item Value Reference Range Interpretation Comments LACTIC ACID (test code = LACT) 2.7 mmol/L 0.4-1.9 HH Results called to DFJ1103 by V.LAB.QUR 12/03/18 1918Critical results verified and read back by Nurse? Y LACTIC [id number] 17:51:00* Test Item Value Reference Range Interpretation Comments LACTIC ACID (test code = LACT) 3.9 mmol/L 0.4-1.9 HH Results called to PMR0049 by V.LAB.SZ 12/03/18 1750Critical results verified and read back by Nurse? Y BASIC METABOLIC [id number] 17:49:00* Test Item Value Reference Range Interpretation Comments SODIUM (test code = NA) 141 mmol/L 136-145 N POTASSIUM (test code = K) 7.1 mmol/L 3.5-5.1 HH Re sults called to [id number] by V.LAB.SZ 12/03/18 1746Critical results verified and [...] CA) 8.5 mg/dL 8.5-10.1 N HEPATIC FUNCTION [id number] 17:49:00* Test Item Value Reference Range Interpretation [...] reference range due to change in reagent. [id number] 17:49:00* Test Item Value Reference Range Interpretation Comments LIPASE (test code = LIP) 14 U/L 73.0-393.0 L HCG SERUM [id number] 17:49:00* Test Item Value Reference Range Interpretation Comments HCG SERUM QUAL (test code = HCGQL) NEGATIVE NEGATIVE This HCGQL test is NOT applicable for MALE patients.Check with nurse about probable order error.If Tumor Marker Test needed, nurse should order test "HCGTU"(Test #550.36873) [id number] 17:49:00* Test Item Value Reference Range Interpretation Comments TROPONIN-I (test code = TROPI) <0.015 ng/mL 0-0.045 N BASIC METABOLIC [id number] 17:46:00* Test Item Value Reference Range Interpretation [...] code = CA) mg/dL 8.5-10.1 HEPATIC FUNCTION [id number] 17:46:00* Test Item Value Reference Range Interpretation [...] TOTAL (test code = ALKP) IUnit/L 45-117 [id number] 17:46:00* Test Item Value Reference Range Interpretation Comments LIPASE (test code = LIP) U/L 73.0-393.0 HCG SERUM [id number] 17:46:00* Test Item Value Reference Range Interpretation Comments HCG SERUM QUAL (test code = HCGQL) NEGATIVE NEGATIVE This HCGQL test is NOT applicable for MALE patients.Check with nurse about probable order error.If Tumor Marker Test needed, nurse should order test "HCGTU"(Test #550.19759) [id number] 17:46:00* Test Item Value Reference Range Interpretation Comments TROPONIN-I (test code = TROPI) ng/mL 0-0.045 URINALYSIS [id number] 16:57:00* Test Item Value Reference Range Interpretation [...] #/LPF FEW Urine Source? Clean CatchCHEMISTRY 8 [id number] 16:48:00* Test Item Value Reference Range Interpretation [...] GFRBED) 26 >6 0 LL CHEMISTRY 8 [id number] 16:48:00* Test Item Value Reference Range Interpretation [...] = GFRBED) 26 >6 0 LL URINALYSIS [id number] 16:44:00* Test Item Value Reference Range Interpretation [...] HPF 0-5 Urine Source? Clean CatchCBC W/O [id number] 16:43:00* Test Item Value Reference Range Interpretation [...] NOT PERFORMED fL 6.7-11 .0 POC LACTIC [id number] 16:27:00* Test Item Value Reference Range Interpretation Comments POC LACTIC ACID (test code = POCLAC) 3.69 MMOL/L 0.4-2.2 H - XR CHEST 1 [id number] 13:18:00 FAX: EdgarrolaEsau Calixto VENEGAS [place]: B St: DEP Name: MOJGAN SAUCEDO [facility] : [birth year] Age/S: 68/F [address] [facility] Unit #: [id number] Loc: [place] [address] Phys: Esau Weaver DO Acct: [id number] Dis Date: Status: DEP ER PHONE #: [phone] Exam Date: 11/27/2018 1245 FAX #: [phone] Reason: CHEST PAIN EXAMS: CPT CODE: [id number] XR CHEST 1 V 63554 HISTORY: Pain after fall. COMPARISON: Chest x-ray [...] Signed Report (CONTINUED) FAX: Esau Weaver DO [place]: St: DEP ---- Name: MOJGAN CUMMINGS [facility] : 1950 Age/S: 68/F [address] Unit #: [id number] Loc: [place] [address] Phys: Esau Weaver DO Acct: [id number] Dis Date: Status: DEP ER PHONE # : [phone] Exam Date: 11/27/2018 1245 FAX #: Reason: CHEST PAIN EXAMS : CPT CODE: [id number] XR CHES T 1 V 65114 <Continued> No acute fracture or dislocation of the right hip. DJD. at 1318 Reported and signed by: Clem Grissom M.D. CC: Esau Weaver DO Technologist: Eric Chavez RT(R) Trnscrd Date/Time/By: 11/27/2018 (1318) : By: [email or web address] Orig Print D/T: S: 11/27/2018 (1323) PAGE 2 Signed Report - XR PELVIS 09/20 [id number] 13:18:00 FAX: Esau Weaver DO [place]: St: DEP Name: MOJGAN SAUCEDO [facility] : [birth year] Age/S: 68/F [place] Unit #: [id number] Loc: [place] [address] Phys: Esau Weaver Acct: [id number] Dis Date: Status: DEP ER PHONE #: [phone] Exam Date: 11/27/2018 1245 FAX #: [phone] Reason: PELVIC PAIN EXAMS: CPT CODE: [id number] XR PELVIS 1/2 VIEWS 03686 HISTORY: Pain after fall. COMPARISON: Chest x-ray [...] Signed Report (CONTINUED) FAX: Esau Weaver DO [place]: B St: DEP ---- Name: MOJGAN CUMMINGS [facility] : 1950 Age/S: 68/F [place] Unit #: [id number] Loc: [place] [address] Phys: Esau Weaver DO Acct: [id number] Dis Date: Status: DEP ER PHONE # : [phone] Exam Date: 11/27/2018 1245 FAX #: [phone] Reason: PELVIC PAIN EXAMS : CPT CODE: [id number] XR PELV IS 1/2 VIEWS 67862 <Continued> No acute fracture or dislocation of the right hip. DJD. at 1313 Reported and signed by: Clem Grissom M.D. CC: Esau Weaver DO Technologist: Eric ALEXANDRA(Ivan) Trnbharti Date/Time/By: 11/27/2018 (3622) : By: [email or web address] Orig Print D/T: S: 11/27/2018 (7664) PAGE 2 Signed Report - XR FEMUR MIN 2 S [id number] 13:18:00 FAX: Esau Weaver DO [place]: B St: DEP Name: Calixto CHRISSYMOJGAN [facility] : [birth year] Age/S: 68/F [place] Unit #: [id number] Loc: [place] [address] Phys: Esau Weaver DO Acct: [id number] Dis Date: Status: DEP ER PHONE #: [phone] Exam Date: 11/27/2018 1243 FAX #: [phone] Reason: THIGH PAIN EXAMS: CPT CODE: [id number] XR FEMUR MIN [address] [place] [address] HISTORY: Pain after fall. COMPARISON: Chest x-ray [...] Signed Report (CONTINUED) FAX: Esau Weaver DO [place]: B St: DEP ---- Name: MOJGAN CUMMINGS [facility] : 1950 Age/S: 68/F [address] Unit #: [id number] Loc: [place] [address] Phys: Esau Weaver DO Acct: [id number] Dis Date: Status: DEP ER PHONE # : [phone] Exam Date: 11/27/2018 1245 FAX #: [phone] Reason: THIGH PAIN EXAMS : CPT CODE: [id number] XR FEMU R MIN [address] [place] [address] <Continued> No acute fracture or dislocation of the right hip. DJD. at 1318 Reported and signed by: Clem Grissom M.D. CC: Esau Weaver DO Technologist: JERAMIE LOPEZ RT(R); Eric Chavez RT(R) Trnnmrd Date/Time/By: 11/27/2018 (1684) : By: [email or web address] Orig Print D/T: S: 11/27/2018 (2288) PAGE 2 Signed Report - XR FEMUR MIN 2 VWS [id number] 13:18:00 FAX: Esau Weaver DO [place]: B St: DEP Name: Calixto LOWEMOJGAN MOLINA [facility] : [birth year] Age/S: 68/F [address] [facility] Unit #: [id number] Loc: [place] [address] Phys: Esau Weaver DO Acct: [id number] Dis Date: Status: DEP ER PHONE #: [phone] Exam Date: 11/27/2018 1245 FAX #: [phone] Reason: THIGH PAIN EXAMS: CPT CODE: [id number] XR FEMUR MIN [address] [place] [address] HISTORY: Pain after fall. COMPARISON: Chest x-ray [...] Signed Report (CONTINUED) FAX: Esau Weaver DO [place]: B St: [facility] ---- Name: MOJGAN CUMMINGS [facility] : 1950 Age/S: 68/F [address] [facility] Unit #: [id number] Loc: [place] [address] Phys: Esau Weaver DO Acct: [id number] Dis Date: Status: DEP ER PHONE # : [phone] Exam Date: 11/27/2018 1244 FAX #: Reason: THIGH PAIN EXAMS : CPT CODE: [id number] XR FEMU R MIN [address] [place] [address] <Continued> No acute fracture or dislocation of the right hip. DJD. at 1318 Reported and signed by: Clem Grissom M.D. CC: Esau Weaver DO Technologist: JERAMIE LOPEZ RT(R); Eric Chavez RT(R) Trnscrd Date/Time/By: 11/27/2018 (2470) : By: [email or web address] Orig Print D/T: S: 11/27/2018 (7575) PAGE 2 Signed Report - XR PELVIS 1/2 [id number] 13:18:00 FAX: Esau Weaver DO [place]: B St: REG Name: MOJGAN SAUCEDO [facility] : [birth year] Age/S: 68/F [address] [facility] Unit #: [id number] Loc: [place] [address] Phys: Esau Weaver DO Acct: [id number] Dis Date: Status: REG ER PHONE #: [phone] Exam Date: 11/27/2018 1245 FAX #: [phone] Reason: PELVIC PAIN EXAMS: CPT CODE: [id number] XR PELVIS 1/2 VIEWS 65090 HISTORY: Pain after fall. COMPARISON: Chest x-ray [...] Signed Report (CONTINUED) FAX: Esau Weaver DO [place]: B St: REG ---- Name: MOJGAN CUMMINGS [facility] : 1950 Age/S: 68/F [address] [facility] Unit #: [id number] Loc: [place] [address] Phys: Esau Weaver DO Acct: [id number] Dis Date: Status: REG ER PHONE # : [phone] Exam Date: 11/27/2018 1245 FAX #: Reason: PELVIC PAIN EXAMS : CPT CODE: [id number] XR PELV IS 1/2 VIEWS 50825 <Continued> No acute fracture or dislocation of the right hip. DJD. at 1318 Reported and signed by: Clem Grissom M.D. CC: Esau Weaver DO Technologist: Eric ALEXANDRA(R) Trnscrd Date/Time/By: 11/27/2018 (1318) : By: [email or web address] Orig Print D/T: S: 11/27/2018 (1324) PAGE 2 Signed Report - XR FEMUR MIN 2 VWS [id number] 13:18:00 FAX: Esau Weaver DO [place]: B St: REG Name: MOJGAN SAUCEDO [facility] : [birth year] Age/S: 68/F [address] Unit #: [id number] Loc: [place] [address] Phys: Esau Weaver DO Acct: [id number] Dis Date: Status: REG ER PHONE #: [phone] Exam Date: 11/27/2018 1245 FAX #: [phone] Reason: THIGH PAIN EXAMS: CPT CODE: [id number] XR FEMUR MIN [address] [place] [address] HISTORY: Pain after fall. COMPARISON: Chest x-ray [...] Signed Report (CONTINUED) FAX: Esau Weaver DO [place]: St: REG ---- Name: MOJGAN CUMMINGS [facility] : 1950 Age/S: 68/F [address] [facility] Unit #: [id number] Loc: [place] [address] Phys: Esau Weaver DO Acct: [id number] Dis Date: Status: REG ER PHONE # : [phone] Exam Date: 11/27/2018 1245 FAX #: Reason: THIGH PAIN EXAMS : CPT CODE: [id number] XR FEMU R MIN [address] [place] [address] <Continued> No acute fracture or dislocation of the right hip. DJD. at 1318 Reported and signed by: Clem Grissom M.D. CC: Esau Weaver DO Technologist: JERAMIE LOPEZ RT(R); Eric Chavez RT(R) [facility] Date/Time/By: 11/27/2018 (9810) : By: [email or web address] Orig Print D/T: S: 11/27/2018 (5195) PAGE 2 Signed Report - XR FEMUR MIN 2 VWS [id number] 13:18:00 FAX: Esau Weaver DO [place]: St: REG Name: MOJGAN SAUCEDO [facility] : [birth year] Age/S: 68/F [address] Unit #: [id number] Loc: [place] [address] Phys: Esau Weaver DO Acct: [id number] Dis Date: Status: REG ER PHONE #: [phone] Exam Date: 11/27/2018 1245 FAX #: [phone] Reason: THIGH PAIN EXAMS: CPT CODE: [id number] XR FEMUR MIN [address] [place] [address] HISTORY: Pain after fall. COMPARISON: Chest x-ray [...] Signed Report (CONTINUED) FAX: Esau Weaver DO [place]: B St: REG ---- Name: MOJGAN CUMMINGS [facility] : 1950 Age/S: 68/F [address] Unit #: [id number] Loc: [place] [address] Phys: Esau Weaver DO Acct: [id number] Dis Date: Status: REG ER PHONE # : [phone] Exam Date: 11/27/2018 1240 FAX #: [phone] Reason: THIGH PAIN EXAMS : CPT CODE: [id number] XR FEMU R MIN 2 [place] [address] <Continued> No acute fracture or dislocation of the right hip. DJD. at 1318 Reported and signed by: Clem Grissom M.D. CC: Esau Weaver DO Technologist: JERAMIE LOPEZ RT(R); Eric Chavez RT(R) [facility] Date/Time/By: 11/27/2018 (9448) : By: [email or web address] Orig Print D/T: S: 11/27/2018 (0679) PAGE 2 Signed Report - XR CHEST 1 [id number] 13:18:00 FAX: Esau Weaver DO [place]: B St: REG Name: MOJGAN SAUCEDO [facility] : [birth year] Age/S: 68/F [address] Unit #: [id number] Loc: [place] [address] Phys: Esau Weaver DO Acct: [id number] Dis Date: Status: REG ER PHONE #: [phone] Exam Date: 11/27/2018 1249 FAX #: [phone] Reason: CHEST PAIN EXAMS: CPT CODE: [id number] XR CHEST 1 V 04793 HISTORY: Pain after fall. COMPARISON: Chest x-ray [...] Signed Report (CONTINUED) FAX: Esau Weaver DO [place]: B St: REG ---- Name: MOJGAN CUMMINGS [facility] : 1950 Age/S: 68/F [address] [facility] Unit #: [id number] Loc: [place] [address] Phys: Esau Weaver DO Acct: [id number] Dis Date: Status: REG ER PHONE # : [phone] Exam Date: 11/27/2018 1249 FAX #: Reason: CHEST PAIN EXAMS : CPT CODE: [id number] XR CHES T 1 V 80912 <Continued> No acute fracture or dislocation of the right hip. DJD. at 1318 Reported and signed by: Clem Grissom M.D. CC: Esau Weaver DO Technologist: Eric Chavez RT(R) Trnscrd Date/Time/By: 11/27/2018 (0344) : By: [email or web address] Orig Print D/T: S: 11/27/2018 (7653) PAGE 2 Signed Report - XR CHEST 1 [id number] 13:18:00 FAX: Esau Weaver DO [place]: St: DEP Name: MOJGAN SAUCEDO [facility] : [birth year] Age/S: 68/F [address] [facility] Unit #: [id number] Loc: [place] [address] Phys: Esau Weaver DO Acct: [id number] Dis Date: Status: [facility] ER PHONE #: [phone] Exam Date: 11/27/2018 1245 FAX #: [phone] Reason: CHEST PAIN EXAMS: CPT CODE: [id number] XR CHEST 1 V 12810 HISTORY: Pain after fall. COMPARISON: Chest x-ray [...] Signed Report (CONTINUED) FAX: Esau Weaver DO [place]: St: DEP ---- Name: MOJGAN CUMMINGS [facility] : 1950 Age/S: 68/F [address] [facility] Unit #: [id number] Loc: [place] [address] Phys: Esau Weaver DO Acct: [id number] Dis Date: Status: DEP ER PHONE # : [phone] Exam Date: 11/27/2018 1245 FAX #: Reason: CHEST PAIN EXAMS : CPT CODE: [id number] XR CHES T 1 V 36334 <Continued> No acute fracture or dislocation of the right hip. DJD. at 1318 Reported and signed by: Clem Grissom M.D. CC: Esau Weaver DO Technologist: Eric Chavez RT(R) Trnscrd Date/Time/By: 11/27/2018 (5938) : By: [email or web address] Orig Print D/T: S: 11/27/2018 (8528) PAGE 2 Signed Report - XR PELVIS 1/2 [id number] 13:18:00 FAX: Esau Weaver DO [place]: B St: DEP Name: MOJGAN SAUCEDO [facility] : [birth year] Age/S: 68/F [address] [facility] Unit #: [id number] Loc: [place] [address] Phys: EdgarEsau canela DO Acct: [id number] Dis Date: Status: DEP ER PHONE #: [phone] Exam Date: 11/27/2018 1245 FAX #: [phone] Reason: PELVIC PAIN EXAMS: CPT CODE: [id number] XR PELVIS /2 VIEWS 41539 HISTORY: Pain after fall. COMPARISON: Chest x-ray [...] Signed Report (CONTINUED) FAX: Esau Weaver DO [place]: St: DEP ---- Name: MOJGAN CUMMINGS [facility] : 1950 Age/S: 68/F [address] [facility] Unit #: [id number] Loc: [place] [address] Phys: Esau Weaver DO Acct: [id number] Dis Date: Status: DEP ER PHONE # : [phone] Exam Date: 11/27/2018 1245 FAX #: Reason: PELVIC PAIN EXAMS : CPT CODE: [id number] XR PELV IS 1/2 VIEWS 88088 <Continued> No acute fracture or dislocation of the right hip. DJD. at 1318 Reported and signed by: Clem Grissom M.D. CC: Esau Weaver DO Technologist: Eric ALEXANDRA(R) Trnscrd Date/Time/By: 11/27/2018 (1318) : By: [email or web address] Orig Print D/T: S: 11/27/2018 (1328) PAGE 2 Signed Report - XR FEMUR MIN 2 VWS [id number] 13:18:00 FAX: Esau Weaver DO [place]: St: DEP Name: MOJGAN SAUCEDO [facility] : [birth year] Age/S: 68/F [address] Unit #: [id number] Loc: [place] [address] Phys: Esau Weaver DO Acct: [id number] Dis Date: Status: DEP ER PHONE #: [phone] Exam Date: 11/27/2018 1245 FAX #: [phone] Reason: THIGH PAIN EXAMS: CPT CODE: [id number] XR FEMUR MIN [address] [place] [address] HISTORY: Pain after fall. COMPARISON: Chest x-ray [...] PAGE 1 Signed Report (CONTINUED) FAX: MegEsau Calixto VENEGAS [place]: B St: DEP ---- Name: MOJGAN CUMMINGS [facility] : 1950 Age/S: 68/F [address] Unit #: [id number] Loc: [place] [address] Phys: Esau Weaver DO Acct: [id number] Dis Date: Status: DEP ER PHONE # : [phone] Exam Date: 11/27/2018 1245 FAX #: [phone] Reason: THIGH PAIN EXAMS : CPT CODE: [id number] XR FEMU R MIN [address] [place] [address] <Continued> No acute fracture or dislocation of the right hip. DJD. at 1318 Reported and signed by: Clem Grissom M.D. CC: Esau Weaver DO Technologist: JERAMIE LOPEZ RT(R); Eric Chavez RT(R) [facility] Date/Time/By: 11/27/2018 (2738) : By: [email or web address] Orig Print D/T: S: 11/27/2018 (9445) PAGE 2 Signed Report - XR FEMUR MIN 2 VWS [id number] 13:18:00 FAX: Esau Weaver DO [place]: B St: DEP Name: MOJGAN SAUCEDO [facility] : [birth year] Age/S: 68/F [address] Unit #: [id number] Loc: [place] [address] Phys: Esau Weaver DO Acct: [id number] Dis Date: Status: DEP ER PHONE #: [phone] Exam Date: 11/27/2018 1245 FAX #: [phone] Reason: THIGH PAIN EXAMS: CPT CODE: [id number] XR FEMUR MIN [address] [place] [address] HISTORY: Pain after fall. COMPARISON: Chest x-ray [...] Signed Report (CONTINUED) FAX: Esau Weaver DO [place]: B St: DEP ---- Name: MOJGAN CUMMINGS [facility] : 1950 Age/S: 68/F [address] [facility] Unit #: [id number] Loc: [place] [address] Phys: Esau Weaver DO Acct: [id number] Dis Date: Status: DEP ER PHONE # : [phone] Exam Date: 11/27/2018 1245 FAX #: Reason: THIGH PAIN EXAMS : CPT CODE: [id number] XR FEMU R MIN 2 [place] [address] <Continued> No acute fracture or dislocation of the right hip. DJD. at 1318 Reported and signed by: Clem Grissom M.D. CC: Esau Weaver DO Technologist: JERAMIE LOPEZ RT(R); Eric Chavez RT(R) Trnscrd Date/Time/By: 11/27/2018 (8868) : By: [email or web address] Orig Print D/T: S: 11/27/2018 (9431) PAGE 2 Signed Report BASIC METABOLIC YNGOJ1466-09-54 12:55:00* Test Item Value Reference Range Interpretation [...] CA) 8.5 mg/dL 8.5-10.1 N HEPATIC FUNCTION WAAQY1936-01-88 12:55:00* Test Item Value Reference Range Interpretation [...] reference range due to change in reagent. NBWYCWSB-I4925-87-11 12:55:00* Test Item Value Reference Range Interpretation Comments TROPONIN-I (test code = TROPI) <0.015 ng/mL 0-0.045 N - CT C-SPINE W/O PRMQIGND4644-41-61 12:49:00 Name: MOJGAN CUMMINGS [facility] : 1950 Age/S: 68 / F [address] [facility] Unit #: [id number] Loc: [place] [address] Phys: Esau Weaver Acct: [id number] Dis Date: Status: [facility] ER PHONE #: [phone] Exam Date: 11/27/2018 1236 FAX #: [phone] Reason: Neck Pain EXAMS: CPT CODE: [id number] CT C-SPINE W/O CONTRAST 45544 HISTORY: Neck pain. COMPARISON: CT neck from [...] RT(R),(MR),(CT); CTDI: DLP: Trnscb Date/Time: 11/27/2018 (1249) [email or web address] Orig Print D/T: S: 11/27/2018 (8262) PAGE 1 Signed Report - CT C-SPINE W/O CONTRAST 2018-11-27 12:49:00 Name: MOJGAN CUMMINGS [facility] : 1950 Age/S: 68 / F [address] [facility] Unit #: [id number] Loc: [place] [address] Phys: Esau Weaver DO Acct: [id number] Dis Date: Status: REG ER PHONE #: [phone] Exam Date: 11/27/2018 1236 FAX #: [phone] Reason: Neck Pain EXAMS: CPT CODE: [id number] CT C-SPINE W/O CONTRAST 25741 HISTORY: Neck pain. COMPARISON: CT neck from [...] RT(R),(MR),(CT); CTDI: DLP: Trnscb Date/Time: 11/27/2018 (1249) Harry Orig Print D/T: S: 11/27/2018 (6254) CTDI: DLP: PAGE 1 Signed Report - CT C-SPINE W/O [id number] 12:49:00 Name: MOJGAN CUMMINGS [facility] : 1950 Age/S: 68 / F [address] [facility] Unit #: [id number] Loc: [place] [address] Phys: Esau Weaver DO Acct: [id number] Dis Date: Status: DEP ER PHONE #: [phone] Exam Date: 11/27/2018 1236 FAX #: [phone] Reason: Neck Pain EXAMS: CPT CODE: [id number] CT C-SPINE W/O CONTRAST 64466 HISTORY: Neck pain. COMPARISON: CT neck from [...] (1249) [email or web address] Orig Print D/T: S: 11/27/2018 (4779) PAGE 1 Signed Report - CT HEAD/BRAIN W/O [id number] 12:40:00 Name: MOJGAN CUMMINGS [facility] : 1950 Age/S: 68 / F [address] Unit #: [id number] Loc: [place] [address] Phys: Esau Weaver DO Acct: [id number] Dis Date: Status: DEP ER PHONE #: Exam Date: 11/27/2018 1236 FAX #: [phone] Reason: HEADACHE EXAMS: CPT CODE: [id number] CT HEAD/BRAIN W/O CONT 16048 HISTORY: Headaches. COMPARISON: November 03, 2017. CT [...] atrophy . El ectronically Signed by Crispin Grissom on 11/27/2018 at 1240 Reported and signed by: Clem Grissom M.D. CC: Esau Weaver DO Technologist:Dmitri Cortes RT(R),(MR),(CT); CTDI: DLP: Trnscb Date/Time: 11/27/2018 (1240) [email or web address] Orig Print D/T: S: 11/27/2018 (4824) PAGE 1 Signed Report - CT HEAD/BRAIN W/O CONT 2018-11-27 12:40:00 Name: MOJGAN CUMMINGS [facility] : 1950 Age/S: 68 / F [address] Unit #: [id number] Loc: [place] [address] Phys: Esau Weaver DO Acct: [id number] Dis Date: Status: REG ER PHONE #: [phone] Exam Date: 11/27/2018 1236 FAX #: [phone] Reason: HEADACHE EXAMS: CPT CODE: [id number] CT HEAD/BRAIN W/O CONT 61477 HISTORY: Headaches. COMPARISON: November 03, 2017. CT [...] (1240) [email or web address] Orig Print D/T: S: 11/27/2018 (1244) CTDI: DLP: PAGE 1 Signed Report - CT HEAD/BRAIN W/O [id number] 12:40:00 Name: MOJGAN CUMMINGS [facility] : 1950 Age/S: 68 / F [address] [facility] Unit #: [id number] Loc: [place] [address] Phys: Esau Weaver DO Acct: [id number] Dis Date: Status: [facility] ER PHONE #: [phone] Exam Date: 11/27/2018 1236 FAX #: [phone] Reason: HEADACHE EXAMS: CPT CODE: [id number] CT HEAD/BRAIN W/O CONT 09443 HISTORY: Headaches. COMPARISON: November 03, 2017. CT [...] Cortes RT(R),(MR),(CT); CTDI: DLP: Trnscb Date/Time: 11/27/2018 (2640) [email or web address] Orig Print D/T: S: 11/27/2018 (5701) PAGE 1 Signed Report CBC W/O [id number] 12:38:00* Test Item Value Reference Range Interpretation [...] K/mm3 150-450 L CHEST SINGLE (PORTABLE)2018-11-16 14:29:00 [facility] [address] [place] [address] Patient Name: MOJGAN CUMMINGS MR #: [id number] : 1950 Age/Sex: 68/F Req #: [id number] [facility] Physician: Ordered by: WILIAM MARTINEZ MD Report #: [id number] Location: ER Room/Bed: Procedure: [id number] DX /CHEST SINGLE (PORTABLE) Exam Date: 11/16/18 [...] 11/16/18 1435 COPY TO: WILIAM MARTINEZ MD DVLEYVTUIMYH5886-35-49 18:44:0012.9[facility] ApydxtkILTIKDBOELHQ6635-64-23 18:44:0018[facility] DRZPVAJYQIIU2307-32-63 18:44:009.9[facility] VmeufbwOYGXQRJIUXUE6288-89-07 18:44:004.9[facility] HvviftwUQNMEAUTKKGR7751-17-10 18:44:79610Fkcdypua Jet RTQNDCKEIUOX5532-55-77 18:44:000.80[facility] AwaedevSCHOQQNWSNJD1136-36-16 18:44:19704Iovgpusq DiddglzCAYQIQFWGCLZ5783-99-21 18:44:0094[facility] PQVWQYDGNKGC6973-19-50 18:44:0036[facility] NxznvbiKGPYQIIAXEHC6248-68-98 18:44:00 75[facility] Unfncnh5004-19-88 08:10:00* Test Item Value Reference Range Interpretation Comments Blood Culture (test code = 41916190) NO GROWTH AFTER 5 DAYS, FINAL REPORT [facility] Yoctpie0474-78-18 17:16:00* Test Item Value Reference Range Interpretation Comments Bedside Glucose (test code = 19112-1) 104 70-120 Meter ID: [id number] Glucose 2018-08-16 17:16:00* Test Item Value Reference Range Interpretation Comments Bedside Glucose (test code = 43454-4) 104 70-120 Meter ID: [id number] [facility] TylerClostridium Difficile Toxin A & W3485-99-16 16:00:00* Test Item Value Reference Range Interpretation Comments Clostridium Difficile Toxin A & B (test code = 322004991) NEGATIVE NEGATIVE Testing on stool aspirate specimens is outside motor vehicle representative claims since specime n type not validated on this assay.[facility] Clostridium Difficile Toxin A & T5688-06-38 16:00:00* Test Item Value Reference Range Interpretation Comments Clostridium Difficile Toxin A & B (test code = 597635091) NEGATIVE NEGATIVE Testing on stool aspirate specimens is outside motor vehicle representative claims since specime n type not validated on this assay.[facility] Station[facility] Occult Nqinh7088-01-03 15:20:00* Test Item Value Reference Range Interpretation Comments Stool Occult Blood (test code = 2335-8) NEGATIVE NEGATIVE [facility] Xasoy3051-82-39 15:20:00* Test Item Value Reference Range Interpretation Comments Stool Occult Blood (test code = 2335-8) NEGATIVE NEGATIVE [facility] Station[facility] Occult Mnejo2152-47-97 15:20:00* Test Item Value Reference Range Interpretation Comments Stool Occult Blood (test code = 2335-8) NEGATIVE NEGATIVE [facility] Uufyoab0464-86-83 11:22:00* Test Item Value Reference Range Interpretation Comments Sputum Culture (test code = 624-7) Organism: PSEUDOMONAS AERUGINOSA [facility] Wewsbfc8055-04-26 11:22:00* Test Item Value Reference Range Interpretation Comments Sputum Culture (test code = 624-7) Organism: PSEUDOMONAS AERUGINOSA [facility] Kkdgbvf4341-80-84 11:22:00* Test Item Value Reference Range Interpretation Comments Sputum Culture (test code = 624-7) Organism: PSEUDOMONAS AERUGINOSA [facility] TylerBlood Clddjke3407-86-77 08:09:00* Test Item Value Reference Range Interpretation Comments Blood Culture (test code = 02220363) NO GROWTH AFTER 72 HOURS [facility] TylerB-Type Natriuretic Cntcqhc8468-01-56 06:49:00* Test Item Value Reference Range Interpretation Comments B-Type Natriuretic Peptide (test code = 49081-6) 92.3 0-100 [facility] TylerB-Type Natriuretic Ayshxds2185-39-57 06:49:00* Test Item Value Reference Range Interpretation Comments B-Type Natriuretic Peptide (test code = 79969-6) 92.3 0-100 [facility] Stationodium Sgqrt2276-55-26 06:23:00* Test Item Value Reference Range Interpretation Comments Sodium Level (test code = 2951-2) 136 136-145 [facility] TylerPotassium Nedud6880-54-65 06:23:00* Test Item Value Reference Range Interpretation Comments Potassium Level (test code = 2823-3) 3.9 3.5-5.1 [facility] TylerChloride Nubxo5189-20-58 06:23:00* Test Item Value Reference Range Interpretation Comments Chloride Level (test code = 2075-0) 100 98-107 [facility] TylerCarbon Dioxide Evffu3411-60-36 06:23:00* Test Item Value Reference Range Interpretation Comments Carbon Dioxide Level (test code = 2028-9) 28 22-29 [facility] TylerAnion Xcq5001-62-80 06:23:00* Test Item Value Reference Range Interpretation Comments Anion Gap (test code = 16390-0) 11.9 8-16 [facility] TylerBlood Urea Wsbceqgq6139-49-50 06:23:00* Test Item Value Reference Range Interpretation Comments Blood Urea Nitrogen (test code = 3094-0) 11 7-26 [facility] TylerCreatinine2018-11-27 06:23:00* Test Item Value Reference Range Interpretation Comments Creatinine (test code = 2160-0) 0.59 0.57-1.11 [facility] TylerBUN/Creatinine Rmyjz1384-29-50 06:23:00* Test Item Value Reference Range Interpretation Comments BUN/Creatinine Ratio (test code = 3097-3) 19 6- [facility] TylerEstimat Glomerular Filtration Rate 2018-08-15 06:23:00* Test Item Value Reference Range Interpretation Comments Estimat Glomerular Filtration Rate (test code = 449294977) > 60 >60 Ranges were taken from the National Kidney Disease Education Program and the [facility] literature.Reference ranges:60 or greater: Aiehhl13-97 ( for 3 consecutive months): Chronic kidney disease 15 or less: Kidney failureCHRISTUS Mother Frances Hospital – TylerGlucose Usgng1259-99-36 06:23:00* Test Item Value Reference Range Interpretation Comments Glucose Level (test code = YON1659) 105 74-118 [facility] TylerCalcium Wjnjz1497-39-71 06:23:00* Test Item Value Reference Range Interpretation Comments Calcium Level (test code = 47637-2) 9.1 8.4-10.2 [facility] TylerMagnesium Jmrip9269-94-38 06:23:00* Test Item Value Reference Range Interpretation Comments Magnesium Level (test code = 74771-4) 1.4 1.3-2.1 [facility] Stationodium Unkhh1760-31-72 06:23:00* Test Item Value Reference Range Interpretation Comments Sodium Level (test code = 2951-2) 136 136-145 [facility] TylerPotassium Keghl6519-19-44 06:23:00* Test Item Value Reference Range Interpretation Comments Potassium Level (test code = 2823-3) 3.9 3.5-5.1 [facility] TylerChloride Cgevo7849-01-50 06:23:00* Test Item Value Reference Range Interpretation Comments Chloride Level (test code = 2075-0) 100 98-107 [facility] TylerCarbon Dioxide Kdvfv1509-15-26 06:23:00* Test Item Value Reference Range Interpretation Comments Carbon Dioxide Level (test code = 2028-9) 28 22-29 [facility] TylerAnion Zfy6576-24-51 06:23:00* Test Item Value Reference Range Interpretation Comments Anion Gap (test code = 53867-7) 11.9 8-16 [facility] TylerBlood Urea Phzilxjm2866-77-55 06:23:00* Test Item Value Reference Range Interpretation Comments Blood Urea Nitrogen (test code = 3094-0) 11 7-26 [facility] TylerCreatinine2018-11-27 06:23:00* Test Item Value Reference Range Interpretation Comments Creatinine (test code = 2160-0) 0.59 0.57-1.11 [facility] TylerBUN/Creatinine Xbofo2605-06-94 06:23:00* Test Item Value Reference Range Interpretation Comments BUN/Creatinine Ratio (test code = 3097-3) 19 6-25 [facility] TylerEstimat Glomerular Filtration Rate 2018-08-15 06:23:00* Test Item Value Reference Range Interpretation Comments Estimat Glomerular Filtration Rate (test code = 312642143) > 60 >60 Ranges were taken from the National Kidney Disease Education Program and the [facility] Kid[facility] Foundation literature.Reference ranges:60 or greater: Dwrrhg81-63 ( for 3 consecutive months): Chronic kidney disease 15 or less: Kidney failureCHRISTUS Mother Frances Hospital – TylerGlucose Lyblh6993-32-40 06:23:00* Test Item Value Reference Range Interpretation Comments Glucose Level (test code = HDK7319) 105 74-118 [facility] TylerCalcium Bmeit2168-94-64 06:23:00* Test Item Value Reference Range Interpretation Comments Calcium Level (test code = 79446-1) 9.1 8.4-10.2 [facility] TylerMagnesium Axhen4504-22-29 06:23:00* Test Item Value Reference Range Interpretation Comments Magnesium Level (test code = 32904-8) 1.4 1.3-2.1 [facility] TylerWhite Blood Yeibl8491-86-00 06:01:00* Test Item Value Reference Range Interpretation Comments White Blood Count (test code = 6690-2) 6.60 4.8-10.8 [facility] TylerRed Blood Qipbf6508-43-97 06:01:00* Test Item Value Reference Range Interpretation Comments Red Blood Count (test code = 789-8) 3.38 3.6-5.1 L [facility] TylerHemoglobin2018-11-27 06:01:00* Test Item Value Reference Range Interpretation Comments Hemoglobin (test code = 98676-6) 9.6 12.0-16.0 L [facility] TylerHematocrit2018-11-27 06:01:00* Test Item Value Reference Range Interpretation Comments Hematocrit (test code = 4544-3) 29.9 34.2-44.1 L [facility] TylerMean Corpuscular Bjitrs1971-35-23 06:01:00* Test Item Value Reference Range Interpretation Comments Mean Corpuscular Volume (test code = 787-2) 88.5 81-99 [facility] TylerMean Corpuscular Tzmnzkahpj1694-87-79 06:01:00* Test Item Value Reference Range Interpretation Comments Mean Corpuscular Hemoglobin (test code = 785-6) 28.4 28-32 [facility] Corpuscular Hemoglobin Concent 2018-08-15 06:01:00* Test Item Value Reference Range Interpretation Comments Mean Corpuscular Hemoglobin Concent (test code = 786-4) 32.1 31-35 [facility] TylerRed Cell Distribution Ckhtb9089-38-97 06:01:00* Test Item Value Reference Range Interpretation Comments Red Cell Distribution Width (test code = 34716-8) 16.4 11.7 -14.4 H [facility] TylerPlatelet Qzmkr8418-87-08 06:01:00* Test Item Value Reference Range Interpretation Comments Platelet Count (test code = 777-3) 55 140-360 L [facility] TylerNeutrophils (%) (Auto)2018-08-15 06:01:00 * Test Item Value Reference Range Interpretation Comments Neutrophils (%) (Auto) (test code = 29366-6) 65.8 38.7-80.0 [facility] TylerLymphocytes (%) (Auto)2018-08-15 06:01:00 * Test Item Value Reference Range Interpretation Comments Lymphocytes (%) (Auto) (test code = 736-9) 22.4 18.0-39.1 [facility] TylerMonocytes (%) (Auto)2018-08-15 06:01:00* Test Item Value Reference Range Interpretation Comments Monocytes (%) (Auto) (test code = 5905-5) 7.7 4.4-11.3 [facility] TylerEosinophils (%) (Auto)2018-08-15 06:01:00 * Test Item Value Reference Range Interpretation Comments Eosinophils (%) (Auto) (test code = 713-8) 2.9 0.0-6.0 [facility] TylerBasophils (%) (Auto)2018-08-15 06:01:00* Test Item Value Reference Range Interpretation Comments Basophils (%) (Auto) (test code = 706-2) 0.3 0.0-1.0 [facility] TylerIM GRANULOCYTES %2018-08-15 06:01:00* Test Item Value Reference Range Interpretation Comments IM GRANULOCYTES % (test code = IM GRANULOCYTES %) 0.9 0.0- 1.0 [facility] TylerNeutrophils # (Auto)2018-08-15 06:01:00* Test Item Value Reference Range Interpretation Comments Neutrophils # (Auto) (test code = 751-8) 4.3 2.1-6.9 [facility] TylerLymphocytes # (Auto)2018-08-15 06:01:00* Test Item Value Reference Range Interpretation Comments Lymphocytes # (Auto) (test code = 42045-8) 1.5 1.0-3.2 [facility] TylerMonocytes # (Auto)2018-08-15 06:01:00* Test Item Value Reference Range Interpretation Comments Monocytes # (Auto) (test code = 742-7) 0.5 0.2-0.8 [facility] TylerEosinophils # (Auto)2018-08-15 06:01:00* Test Item Value Reference Range Interpretation Comments Eosinophils # (Auto) (test code = 711-2) 0.2 0.0-0.4 [facility] TylerBasophils # (Auto)2018-08-15 06:01:00* Test Item Value Reference Range Interpretation Comments Basophils # (Auto) (test code = 704-7) 0.0 0.0-0.1 [facility] [facility] Tyler[facility] Immature Granulocyte (auto 2018-08-15 06:01:00* Test Item Value Reference Range Interpretation Comments Absolute Immature Granulocyte (auto (melina t code = Absolute Immature Granulocyte (auto) 0.06 0-0.1 [facility] TylerWhite Blood Mznon7092-17-59 06:01:00* Test Item Value Reference Range Interpretation Comments White Blood Count (test code = 6690-2) 6.60 4.8-10.8 [facility] TylerRed Blood Jsqur8148-89-23 06:01:00* Test Item Value Reference Range Interpretation Comments Red Blood Count (test code = 789-8) 3.38 3.6-5.1 L [facility] TylerHemoglobin2018-11-27 06:01:00* Test Item Value Reference Range Interpretation Comments Hemoglobin (test code = 57199-6) 9.6 12.0-16.0 L [facility] TylerHematocrit2018-11-27 06:01:00* Test Item Value Reference Range Interpretation Comments Hematocrit (test code = 4544-3) 29.9 34.2-44.1 L [facility] TylerMean Corpuscular Warjsx1771-12-82 06:01:00* Test Item Value Reference Range Interpretation Comments Mean Corpuscular Volume (test code = 787-2) 88.5 81-99 [facility] TylerMean Corpuscular Gjrsnrjwoi0221-83-79 06:01:00* Test Item Value Reference Range Interpretation Comments Mean Corpuscular Hemoglobin (test code = 785-6) 28.4 28-32 [facility] TylerMean Corpuscular Hemoglobin Concent 2018-08-15 06:01:00* Test Item Value Reference Range Interpretation Comments Mean Corpuscular Hemoglobin Concent (test code = 786-4) 32.1 31-35 [facility] TylerRed Cell Distribution Zqlye2255-68-04 06:01:00* Test Item Value Reference Range Interpretation Comments Red Cell Distribution Width (test code = 57532-1) 16.4 11.7 -14.4 H [facility] TylerPlatelet Qizko5351-15-31 06:01:00* Test Item Value Reference Range Interpretation Comments Platelet Count (test code = 777-3) 55 140-360 L [facility] TylerNeutrophils (%) (Auto)2018-08-15 06:01:00 * Test Item Value Reference Range Interpretation Comments Neutrophils (%) (Auto) (test code = 73161-7) 65.8 38.7-80.0 [facility] TylerLymphocytes (%) (Auto)2018-08-15 06:01:00 * Test Item Value Reference Range Interpretation Comments Lymphocytes (%) (Auto) (test code = 736-9) 22.4 18.0-39.1 [facility] TylerMonocytes (%) (Auto)2018-08-15 06:01:00* Test Item Value Reference Range Interpretation Comments Monocytes (%) (Auto) (test code = 5905-5) 7.7 4.4-11.3 [facility] TylerEosinophils (%) (Auto)2018-08-15 06:01:00 * Test Item Value Reference Range Interpretation Comments Eosinophils (%) (Auto) (test code = 713-8) 2.9 0.0-6.0 [facility] TylerBasophils (%) (Auto)2018-08-15 06:01:00* Test Item Value Reference Range Interpretation Comments Basophils (%) (Auto) (test code = 706-2) 0.3 0.0-1.0 [facility] TylerIM GRANULOCYTES %2018-08-15 06:01:00* Test Item Value Reference Range Interpretation Comments IM GRANULOCYTES % (test code = IM GRANULOCYTES %) 0.9 0.0- 1.0 [facility] TylerNeutrophils # (Auto)2018-08-15 06:01:00* Test Item Value Reference Range Interpretation Comments Neutrophils # (Auto) (test code = 751-8) 4.3 2.1-6.9 [facility] TylerLymphocytes # (Auto)2018-08-15 06:01:00* Test Item Value Reference Range Interpretation Comments Lymphocytes # (Auto) (test code = 64450-0) 1.5 1.0-3.2 [facility] TylerMonocytes # (Auto)2018-08-15 06:01:00* Test Item Value Reference Range Interpretation Comments Monocytes # (Auto) (test code = 742-7) 0.5 0.2-0.8 [facility] TylerEosinophils # (Auto)2018-08-15 06:01:00* Test Item Value Reference Range Interpretation Comments Eosinophils # (Auto) (test code = 711-2) 0.2 0.0-0.4 [facility] TylerBasophils # (Auto)2018-08-15 06:01:00* Test Item Value Reference Range Interpretation Comments Basophils # (Auto) (test code = 704-7) 0.0 0.0-0.1 [facility] TylerAbsolute Immature Granulocyte (auto 2018-08-15 06:01:00* Test Item Value Reference Range Interpretation Comments Absolute Immature Granulocyte (auto (melina t code = Absolute Immature Granulocyte (auto) 0.06 0-0.1 [facility] TylerVitamin B12 Ehzqa5660-48-65 06:48:00* Test Item Value Reference Range Interpretation Comments Vitamin B12 Level (test code = 50079-8) 740 213-816 [facility] TylerFolate2018-11-26 06:48:00* Test Item Value Reference Range Interpretation Comments Folate (test code = 2284-8) 5.7 7.0-15.4 L [facility] TylerVitamin B12 Vyvvt6080-01-86 06:48:00* Test Item Value Reference Range Interpretation Comments Vitamin B12 Level (test code = 33708-9) 740 213-816 [facility] TylerFolate2018-11-26 06:48:00* Test Item Value Reference Range Interpretation Comments Folate (test code = 2284-8) 5.7 7.0-15.4 L [facility] TylerFerritin2018-11-26 06:09:00* Test Item Value Reference Range Interpretation Comments Ferritin (test code = 2276-4) 138.64 4.63-204.00 [facility] TylerFerritin2018-11-26 06:09:00* Test Item Value Reference Range Interpretation Comments Ferritin (test code = 2276-4) 138.64 4.63-204.00 [facility] TylerIron Mddef9062-50-53 05:52:00* Test Item Value Reference Range Interpretation Comments Iron Level (test code = 2498-4) 60 50-170 [facility] TylerTotal Iron Binding Dqgbniqs9428-00-42 05:52:00* Test Item Value Reference Range Interpretation Comments Total Iron Binding Capacity (test code = 2500-7) 140 261-4 78 L [facility] TylerPercent Iron Yeqsbgnkgk3209-03-63 05:52:00* Test Item Value Reference Range Interpretation Comments Percent Iron Saturation (test code = 2502-3) 43 15-50 [facility] TylerTransferrin2018-11-26 05:52:00* Test Item Value Reference Range Interpretation Comments Transferrin (test code = 3034-6) 100 180-382 L [facility]ern Qmbkl9683-25-81 05:52:00* Test Item Value Reference Range Interpretation Comments Iron Level (test code = 2498-4) 60 50-170 [facility] TylerTotal Iron Binding Jwtgtnzc2565-59-09 05:52:00* Test Item Value Reference Range Interpretation Comments Total Iron Binding Capacity (test code = 2500-7) 140 261-4 78 L [facility] TylerPercent Iron Danzbjgngy8761-51-97 05:52:00* Test Item Value Reference Range Interpretation Comments Percent Iron Saturation (test code = 2502-3) 43 15-50 [facility] TylerTransferrin2018-11-26 05:52:00* Test Item Value Reference Range Interpretation Comments Transferrin (test code = 3034-6) 100 180-382 L [facility] Somng6930-11-00 05:52:00* Test Item Value Reference Range Interpretation Comments Iron Level (test code = 2498-4) 60 50-170 [facility] TylerTotal Iron Binding Fxofbqyr7022-77-34 05:52:00* Test Item Value Reference Range Interpretation Comments Total Iron Binding Capacity (test code = 2500-7) 140 261-4 78 L [facility] TylerPercent Iron Wkkqftlovp3083-63-11 05:52:00* Test Item Value Reference Range Interpretation Comments Percent Iron Saturation (test code = 2502-3) 43 15-50 [facility] TylerTransferrin2018-11-26 05:52:00* Test Item Value Reference Range Interpretation Comments Transferrin (test code = 3034-6) 100 180-382 L [facility] TylerUS ABDOMEN RNYRRJGR3225-45-40 12:16:00 [place] [address] Patient Name: MOJGAN CUMMINGS MR #: [id number] : 1950 Age/Sex: 68/F Req #: [id number] Adm Physician: ILAN STEIN MD Ordered by: RUSSELL BARRON MD Report #: [id number] Location: MED/SURG3 Room/Bed: 287-1 Procedure: [id number] US/US ABDOMEN COMPLETE Exam Date: Exam Time: [...] 12:19 PM Dictated By: OG ECHOLS MD 18 Transcribed By: BAMBI on 08/13/181218 COPY TO: RUSSELL BARRON MD Differential Total Cells Pnwatri1017-44-81 08:51:00* Test Item Value Reference Range Interpretation Comments Differential Total Cells Counted (test code = Differjesus tial Total Cells Counted) 100 [facility] TylerNeutrophils % (Manual)2018-08-13 08:51:00 * Test Item Value Reference Range Interpretation Comments Neutrophils % (Manual) (test code = 21139-6) 64 40-74 [facility] TylerLymphocytes % (Manual)2018-08-13 08:51:00 * Test Item Value Reference Range Interpretation Comments Lymphocytes % (Manual) (test code = 737-7) 28 19-48 [facility] TylerMonocytes % (Manual)2018-08-13 08:51:00* Test Item Value Reference Range Interpretation Comments Monocytes % (Manual) (test code = 744-3) 8 3.4-9.0 [facility] TylerPlatelet Wcjlkyct7671-68-63 08:51:00* Test Item Value Reference Range Interpretation Comments Platelet Estimate (test code = 99281-5) MARKEDLY DECREASED [facility] TylerPlatelet Morphology Nsmnurd7187-93-12 08:51:00* Test Item Value Reference Range Interpretation Comments Platelet Morphology Comment (test code = 58706-4) NORMAL [facility] TylerRed Cell Morphology Umworlb6838-95-72 08:51:00* Test Item Value Reference Range Interpretation Comments Red Cell Morphology Comment (test code = 6742-1) NORMAL [facility] TylerDifferential Total Cells Counted 2018-08-13 08:51:00* Test Item Value Reference Range Interpretation Comments Differential Total Cells Counted (test code = Differjesus tial Total Cells Counted) 100 [facility] TylerNeutrophils % (Manual)2018-08-13 08:51:00 * Test Item Value Reference Range Interpretation Comments Neutrophils % (Manual) (test code = 77356-1) 64 40-74 [facility] TylerLymphocytes % (Manual)2018-08-13 08:51:00 * Test Item Value Reference Range Interpretation Comments Lymphocytes % (Manual) (test code = 737-7) 28 19-48 [facility] TylerMonocytes % (Manual)2018-08-13 08:51:00* Test Item Value Reference Range Interpretation Comments Monocytes % (Manual) (test code = 744-3) 8 3.4-9.0 [facility] TylerPlatelet Rhyhorio9203-95-76 08:51:00* Test Item Value Reference Range Interpretation Comments Platelet Estimate (test code = 84293-1) MARKEDLY DECREASED [facility] TylerPlatelet Morphology Gybdzst1090-67-57 08:51:00* Test Item Value Reference Range Interpretation Comments Platelet Morphology Comment (test code = 04627-5) NORMAL [facility] TylerRed Cell Morphology Qxpqqmm7729-89-75 08:51:00* Test Item Value Reference Range Interpretation Comments Red Cell Morphology Comment (test code = 6742-1) NORMAL [facility] TylerPlatelet Morphology Dxlxlmq6975-76-10 08:51:00* Test Item Value Reference Range Interpretation Comments Platelet Morphology Comment (test code = 31791-0) NORMAL [facility] TylerTotal Qgcpqcpzj0266-05-71 07:58:00* Test Item Value Reference Range Interpretation Comments Total Bilirubin (test code = 1975-2) 0.3 0.2-1.2 [facility] TylerDirect Volsscujg5917-36-37 07:58:00* Test Item Value Reference Range Interpretation Comments Direct Bilirubin (test code = 87445-0) 0.2 0.0-0.5 [facility] TylerAspartate Amino Transf (AST/SGOT) 2018-08-13 07:58:00* Test Item Value Reference Range Interpretation Comments Aspartate Amino Transf (AST/SGOT) (test code = Aspartate Amino Transf (AST/SGOT)) 12 5-34 [facility] TylerAlanine Aminotransferase (ALT/SGPT) 2018-08-13 07:58:00* Test Item Value Reference Range Interpretation Comments Alanine Aminotransferase (ALT/SGPT) (test code = 1742-6) 6 0-55 [facility] TylerTotal Bbqcxji8039-37-56 07:58:00* Test Item Value Reference Range Interpretation Comments Total Protein (test code = 2885-2) 5.1 6.5-8.1 L [facility] TylerAlbumin2018-11-25 07:58:00* Test Item Value Reference Range Interpretation Comments Albumin (test code = 1751-7) 2.3 3.5-5.0 L [facility] TylerAlkaline Ebmacmgxshi0116-44-53 07:58:00* Test Item Value Reference Range Interpretation Comments Alkaline Phosphatase (test code = 6768-6) 68 40-150 [facility] TylerTotal Kerxxzcev6191-05-81 07:58:00* Test Item Value Reference Range Interpretation Comments Total Bilirubin (test code = 1975-2) 0.3 0.2-1.2 [facility] TylerDirect Sridwzjak7989-24-90 07:58:00* Test Item Value Reference Range Interpretation Comments Direct Bilirubin (test code = 84254-9) 0.2 0.0-0.5 [facility] TylerAspartate Amino Transf (AST/SGOT) 2018-08-13 07:58:00* Test Item Value Reference Range Interpretation Comments Aspartate Amino Transf (AST/SGOT) (test code = Aspartate Amino Transf (AST/SGOT)) 12 5-34 [facility] TylerAlanine Aminotransferase (ALT/SGPT) 2018-08-13 07:58:00* Test Item Value Reference Range Interpretation Comments Alanine Aminotransferase (ALT/SGPT) (test code = 1742-6) 6 0-55 [facility] TylerTotal Yyromlv2727-79-05 07:58:00* Test Item Value Reference Range Interpretation Comments Total Protein (test code = 2885-2) 5.1 6.5-8.1 L [facility] TylerAlbumin2018-11-25 07:58:00* Test Item Value Reference Range Interpretation Comments Albumin (test code = 1751-7) 2.3 3.5-5.0 L [facility] TylerAlkaline Gwewykplksy9868-30-12 07:58:00* Test Item Value Reference Range Interpretation Comments Alkaline Phosphatase (test code = 6768-6) 68 40-150 [facility] TylerDirect Qeykkmtwl5801-14-70 07:58:00* Test Item Value Reference Range Interpretation Comments Direct Bilirubin (test code = 25266-7) 0.2 0.0-0.5 [facility] TylerGlobulin2018-11-25 07:56:00* Test Item Value Reference Range Interpretation Comments Globulin (test code = 93500-0) 2.9 2.3-3.5 [facility] TylerAlbumin/Globulin Uyvok1842-18-31 07:56:00 * Test Item Value Reference Range Interpretation Comments Albumin/Globulin Ratio (test code = 1759-0) 0.8 0.8-2.0 [facility] TylerGlobulin2018-11-25 07:56:00* Test Item Value Reference Range Interpretation Comments Globulin (test code = 19806-9) 2.9 2.3-3.5 [facility] TylerAlbumin/Globulin Rrpbp7069-88-73 07:56:00 * Test Item Value Reference Range Interpretation Comments Albumin/Globulin Ratio (test code = 1759-0) 0.8 0.8-2.0 [facility] TylerErythrocyte Sedimentation Jgue2391-89-07 07:21:00* Test Item Value Reference Range Interpretation Comments Erythrocyte Sedimentation Rate (test code = 4537-7) 29 0- 20 H [facility] TylerErythrocyte Sedimentation Xoff0256-79-45 07:21:00* Test Item Value Reference Range Interpretation Comments Erythrocyte Sedimentation Rate (test code = 4537-7) 29 0- 20 H [facility] TylerErythrocyte Sedimentation Deei0659-86-91 07:21:00* Test Item Value Reference Range Interpretation Comments Erythrocyte Sedimentation Rate (test code = 4537-7) 29 0- 20 H [facility] TylerCreatine Kinase RE4482-16-62 07:13:00* Test Item Value Reference Range Interpretation Comments Creatine Kinase MB (test code = 54574-0) 0.50 0-5.0 [facility] TylerTroponin U3439-23-80 07:13:00* Test Item Value Reference Range Interpretation Comments Troponin I (test code = XYE7903) 0.013 0-0.300 [facility] TylerCreatine Kinase LZ6403-05-03 07:13:00* Test Item Value Reference Range Interpretation Comments Creatine Kinase MB (test code = 74046-1) 0.50 0-5.0 [facility] TylerTroponin K3604-52-25 07:13:00* Test Item Value Reference Range Interpretation Comments Troponin I (test code = LVC4286) 0.013 0-0.300 [facility] TylerCreatine Nqyjni4954-58-98 07:05:00* Test Item Value Reference Range Interpretation Comments Creatine Kinase (test code = 2157-6) 15 29-168 [facility] Wazmpl4750-10-01 07:05:00* Test Item Value Reference Range Interpretation Comments Creatine Kinase (test code = 2157-6) 15 29-168 L [facility] TylerPercent Reticulocyte Gogja3194-16-43 06:55:00* Test Item Value Reference Range Interpretation Comments Percent Reticulocyte Count (test code = 61555-5) 1.5 0.8-2 .2 [facility] TylerPercent Reticulocyte Dxkdf3160-14-13 06:55:00* Test Item Value Reference Range Interpretation Comments Percent Reticulocyte Count (test code = 90106-4) 1.5 0.8-2 .2 [facility] Avlhq1257-54-50 06:55:00* Test Item Value Reference Range Interpretation Comments Percent Reticulocyte Count (test code = 53257-2) 1.5 0.8-2 .2 [facility] TylerCHEST SINGLE (PORTABLE)2018-08-12 05:55:00 [place] [address] Patient Name: MOJGAN CUMMINGS MR #: [id number] : 1950 Age/Sex: 68/F Req #: [id number] Adm Physician: Ordered by: ALFONSO ROBB MD Report #: [id number] Location: ER Room/Bed: Procedure: [id number] DX/CHEST SINGLE (PORTABLE) Exam Date: 08/12/18 Exam [...] on 08/12/18602 COPY TO: ALFONSO ROBB MD Bedside Glucose 2018-08-04 16:21:00* Test Item Value Reference Range Interpretation Comments Bedside Glucose (test code = 51737-1) 121 70-120 H Meter ID: [id number] [facility] College Stationodium Level 2018-08-04 05:24:00* Test Item Value Reference Range Interpretation Comments Sodium Level (test code = 2951-2) 141 136-145 [facility] TylerPotassium Pcdlh6096-30-10 05:24:00* Test Item Value Reference Range Interpretation Comments Potassium Level (test code = 2823-3) 4.0 3.5-5.1 [facility] TylerChloride Xlrkd0694-92-81 05:24:00* Test Item Value Reference Range Interpretation Comments Chloride Level (test code = 2075-0) 114 98-107 H [facility] TylerCarbon Dioxide Rjpbx2178-73-19 05:24:00* Test Item Value Reference Range Interpretation Comments Carbon Dioxide Level (test code = 2028-9) 19 22-29 L [facility] TylerAnion Pkq8856-66-98 05:24:00* Test Item Value Reference Range Interpretation Comments Anion Gap (test code = 82661-8) 12.0 8-16 [facility] TylerBlood Urea Cmstkymh7895-01-59 05:24:00* Test Item Value Reference Range Interpretation Comments Blood Urea Nitrogen (test code = 3094-0) 21 7-26 [facility] TylerCreatinine2018-11-16 05:24:00* Test Item Value Reference Range Interpretation Comments Creatinine (test code = 2160-0) 0.58 0.57-1.11 [facility] TylerBUN/Creatinine Yrjbh2086-48-54 05:24:00* Test Item Value Reference Range Interpretation Comments BUN/Creatinine Ratio (test code = 3097-3) 36 6-25 H [facility] TylerEstimat Glomerular Filtration Rate 2018-08-04 05:24:00* Test Item Value Reference Range Interpretation Comments Estimat Glomerular Filtration Rate (test code = 115637686) > 60 >60 Ranges were taken from the National Kidney Disease Education Program and the [facility] literature.Reference ranges:60 or greater: Heioum14-73 ( for 3 consecutive months): Chronic kidney disease 15 or less: Kidney failureCHRISTUS Mother [facility] – TylerGlucose Vpvhs1090-36-24 05:24:00* Test Item Value Reference Range Interpretation Comments Glucose Level (test code = MPC4320) 111 74-118 [facility] TylerCalcium Ricxf7587-92-24 05:24:00* Test Item Value Reference Range Interpretation Comments Calcium Level (test code = 32962-5) 8.0 8.4-10.2 L [facility] TylerMagnesium Vyvwt1038-84-14 05:24:00* Test Item Value Reference Range Interpretation Comments Magnesium Level (test code = 69411-8) 1.3 1.3-2.1 [facility] TylerWhite Blood Pemel7231-08-41 05:06:00* Test Item Value Reference Range Interpretation Comments White Blood Count (test code = 6690-2) 8.22 4.8-10.8 [facility] TylerRed Blood Sbloa2367-15-13 05:06:00* Test Item Value Reference Range Interpretation Comments Red Blood Count (test code = 789-8) 3.50 3.6-5.1 L [facility] TylerHemoglobin2018-11-16 05:06:00* Test Item Value Reference Range Interpretation Comments Hemoglobin (test code = 98746-4) 10.0 12.0-16.0 L [facility] TylerHematocrit2018-11-16 05:06:00* Test Item Value Reference Range Interpretation Comments Hematocrit (test code = 4544-3) 31.0 34.2-44.1 L [facility] TylerMean Corpuscular Sqlhon9150-38-10 05:06:00* Test Item Value Reference Range Interpretation Comments Mean Corpuscular Volume (test code = 787-2) 88.6 81-99 [facility] TylerMean Corpuscular Gqojgfhqpi0052-79-94 05:06:00* Test Item Value Reference Range Interpretation Comments Mean Corpuscular Hemoglobin (test code = 785-6) 28.6 28-32 [facility] Hemoglobin Concent 2018-08-04 05:06:00* Test Item Value Reference Range Interpretation Comments Mean Corpuscular Hemoglobin Concent (test code = 786-4) 32.3 31-35 [facility] TylerRed Cell Distribution Qzhzi2063-55-92 05:06:00* Test Item Value Reference Range Interpretation Comments Red Cell Distribution Width (test code = 56336-4) 17.0 11.7 -14.4 H [facility] TylerPlatelet Ejvyr9369-72-30 05:06:00* Test Item Value Reference Range Interpretation Comments Platelet Count (test code = 777-3) 88 140-360 L [facility] TylerNeutrophils (%) (Auto)2018-08-04 05:06:00 * Test Item Value Reference Range Interpretation Comments Neutrophils (%) (Auto) (test code = 61256-2) 71.4 38.7-80.0 [facility] TylerLymphocytes (%) (Auto)2018-08-04 05:06:00 * Test Item Value Reference Range Interpretation Comments Lymphocytes (%) (Auto) (test code = 736-9) 16.8 18.0-39.1 L [facility] TylerMonocytes (%) (Auto)2018-08-04 05:06:00* Test Item Value Reference Range Interpretation Comments Monocytes (%) (Auto) (test code = 5905-5) 7.3 4.4-11.3 [facility] TylerEosinophils (%) (Auto)2018-08-04 05:06:00 * Test Item Value Reference Range Interpretation Comments Eosinophils (%) (Auto) (test code = 713-8) 3.2 0.0-6.0 [facility] TylerBasophils (%) (Auto)2018-08-04 05:06:00* Test Item Value Reference Range Interpretation Comments Basophils (%) (Auto) (test code = 706-2) 0.1 0.0-1.0 [facility] TylerIM GRANULOCYTES %2018-08-04 05:06:00* Test Item Value Reference Range Interpretation Comments IM GRANULOCYTES % (test code = IM GRANULOCYTES %) 1.2 0.0- 1.0 H [facility] TylerNeutrophils # (Auto)2018-08-04 05:06:00* Test Item Value Reference Range Interpretation Comments Neutrophils # (Auto) (test code = 751-8) 5.9 2.1-6.9 [facility] TylerLymphocytes # (Auto)2018-08-04 05:06:00* Test Item Value Reference Range Interpretation Comments Lymphocytes # (Auto) (test code = 29384-0) 1.4 1.0-3.2 [facility] TylerMonocytes # (Auto)2018-08-04 05:06:00* Test Item Value Reference Range Interpretation Comments Monocytes # (Auto) (test code = 742-7) 0.6 0.2-0.8 [facility] TylerEosinophils # (Auto)2018-08-04 05:06:00* Test Item Value Reference Range Interpretation Comments Eosinophils # (Auto) (test code = 711-2) 0.3 0.0-0.4 [facility] TylerBasophils # (Auto)2018-08-04 05:06:00* Test Item Value Reference Range Interpretation Comments Basophils # (Auto) (test code = 704-7) 0.0 0.0-0.1 [facility] TylerAbsolute Immature Granulocyte (auto 2018-08-04 05:06:00* Test Item Value Reference Range Interpretation Comments Absolute Immature Granulocyte (auto (melina t code = Absolute Immature Granulocyte (auto) 0.10 0-0.1 [facility] Tyler[facility] Hkuxtralc1459-92-78 15:15:00* Test Item Value Reference Range Interpretation Comments Total Bilirubin (test code = 1975-2) 0.2 0.2-1.2 [facility] TylerAspartate Amino Transf (AST/SGOT) 2018-08-03 15:15:00* Test Item Value Reference Range Interpretation Comments Aspartate Amino Transf (AST/SGOT) (test code = Aspartate Amino Transf (AST/SGOT)) 8 5-34 [facility] TylerAlanine Aminotransferase (ALT/SGPT) 2018-08-03 15:15:00* Test Item Value Reference Range Interpretation Comments Alanine Aminotransferase (ALT/SGPT) (test code = 1742-6) < 6 0-55 [facility] TylerTotal Uazrapy2513-76-33 15:15:00* Test Item Value Reference Range Interpretation Comments Total Protein (test code = 2885-2) 4.8 6.5-8.1 L [facility] TylerAlbumin2018-11-15 15:15:00* Test Item Value Reference Range Interpretation Comments Albumin (test code = 1751-7) 2.4 3.5-5.0 L [facility] TylerGlobulin2018-11-15 15:15:00* Test Item Value Reference Range Interpretation Comments Globulin (test code = 56011-0) 2.4 2.3-3.5 [facility] TylerAlbumin/Globulin Dekbl8044-15-73 15:15:00 * Test Item Value Reference Range Interpretation Comments Albumin/Globulin Ratio (test code = 1759-0) 1.0 0.8-2.0 [facility] TylerAlkaline Deauxealtns1670-28-08 15:15:00* Test Item Value Reference Range Interpretation Comments Alkaline Phosphatase (test code = 6768-6) 89 40-150 [facility] TylerDifferential Total Cells Counted 2018-08-03 07:30:00* Test Item Value Reference Range Interpretation Comments Differential Total Cells Counted (test code = Differjesus tial Total Cells Counted) 100 [facility] TylerNeutrophils % (Manual)2018-08-03 07:30:00 * Test Item Value Reference Range Interpretation Comments Neutrophils % (Manual) (test code = 72012-7) 85 40-74 H [facility] TylerLymphocytes % (Manual)2018-08-03 07:30:00 * Test Item Value Reference Range Interpretation Comments Lymphocytes % (Manual) (test code = 737-7) 8 19-48 L [facility] TylerMonocytes % (Manual)2018-08-03 07:30:00* Test Item Value Reference Range Interpretation Comments Monocytes % (Manual) (test code = 744-3) 7 3.4-9.0 [facility] TylerPlatelet Vydxyamo9122-00-85 07:30:00* Test Item Value Reference Range Interpretation Comments Platelet Estimate (test code = 45140-2) ADEQUATE [facility] TylerPlatelet Morphology Cxybyyq8399-28-79 07:30:00* Test Item Value Reference Range Interpretation Comments Platelet Morphology Comment (test code = 21340-8) MODERATE LARGE [facility] TylerRed Cell Morphology Xhrjcox8030-87-72 07:30:00* Test Item Value Reference Range Interpretation Comments Red Cell Morphology Comment (test code = 6742-1) NORMAL [facility] TylerBlood Xlclfef7909-06-99 23:18:00* Test Item Value Reference Range Interpretation Comments Blood Culture (test code = 76921503) NO GROWTH AFTER 72 HOURS [facility] TylerUrine Ezeeadr9352-49-79 10:13:00* Test Item Value Reference Range Interpretation Comments Urine Culture (test code = 630-4) Organism: KLEBSIELLA PNEUMONIAE-E SBL [facility] TylerUrine Gqgjnkk1502-95-07 10:13:00* Test Item Value Reference Range Interpretation Comments Urine Culture (test code = 630-4) Organism: KLEBSIELLA PNEUMONIAE-E SBL [facility] TylerUrine Ttkruho1658-73-89 10:13:00* Test Item Value Reference Range Interpretation Comments Urine Culture (test code = 630-4) Organism: KLEBSIELLA PNEUMONIAE-E SBL [facility] TylerUrine Tcsdoos6814-74-90 10:13:00* Test Item Value Reference Range Interpretation Comments Urine Culture (test code = 630-4) Organism: KLEBSIELLA PNEUMONIAE-E L [facility] StationPECIAL PROCEDURE IN CATH NHF8393-81-39 11:04:00 [place] [address] Patient Name: MOJGAN CUMMINGS MR #: [id number] : 1950 Age/Sex: 68/F Req #: [id number] Adm Physician: ILAN STEIN MD Ordered by: PHOENIX CIFUENTES MD Report #: [id number] Location: MED/SURG2 Room/Bed: [facility] Procedure: 1113-0 004 IR/SPECIAL PROCEDURE IN PLEXIGLAS FORMER Exam Date: Exa m Time: REPORT STATUS: Signed P rocedure: G-tube [...] was obtained from the patient. A 5 Panamanian dilator was placed into the tract. Contrast [...] then placed into the stomach. An 18 [place]ian [employer] balloon retention G-tube was then placed [...] 1036 COPY TO: PHOENIX CIFUENTES MD IR BIXDCQO3416-59-17 11:04:00 [place] [address] Patient Name: MOJGAN CUMMINGS MR #: [id number] : 1950 Age/Sex: 68/F Req #: [id number] Adm Physician: ILAN STEIN MD Ordered by: PHOENIX CIFUENTES MD Report #: [id number] Location: MED/SURG2 Room/Bed: [facility] Procedure: 1113-0 003 DX/IR CONSULT Exam Date: Exam Time: REPORT STATUS: Signed Procedure: G-tube ca theter replacement Medications: Fentanyl 50 mcg intravenous. The patient's vital signs, including pulse oximetry, were [facility] erventional [facility] nurse. Fluoroscopy time: 2.6 minutes. Dose area p roduct: 1602.1 cGycm2 Contrast used: None Estimated blood loss: Minimal. Complications: No immediate. Procedure in detail: Informed consent f or the procedure was obtained from the patient. A 5 Panamanian dilator was placed into the tract. Contrast [...] then placed into the stomach. An 18 Pan[place]ian [employer] balloon retention G-tube was then [...] 10/03/17 1036 COPY TO: PHOENIX CIFUENTES MD Clostridium Difficile Toxin A & P0475-03-54 12:43:00* Test Item Value Reference Range Interpretation Comments Clostridium Difficile Toxin A & B (test code = 420706969) POSI TIVE NEGATIVE H Results called to RAMYA BOSE at 1242 on 07/31/18 by Mark Aguirre. RB RAYMOND.Ivan zhaoults called to TORITO ARCOS () in infection control at 1242 on 07/31/18 by Heather Aguirre.Testing on stool aspirate specimens is outside motor vehicle representative claims since specimen type not validated on this assay.[facility] TylerLactic Acid Ynagg5842-60-04 23:44:00* Test Item Value Reference Range Interpretation Comments Lactic Acid Level (test code = Lactic Acid Level) 9.3 4.5- 19.8 [facility] TylerLactic Acid Czoqt5487-18-05 23:44:00* Test Item Value Reference Range Interpretation Comments Lactic Acid Level (test code = Lactic Acid Level) 9.3 4.5- 19.8 [facility] TylerLactic Acid Rnlqf1404-05-62 23:44:00* Test Item Value Reference Range Interpretation Comments Lactic Acid Level (test code = Lactic Acid Level) 9.3 4.5- 19.8 [facility] TylerLactic Acid Xqycr9582-67-02 23:44:00* Test Item Value Reference Range Interpretation Comments Lactic Acid Level (test code = Lactic Acid Level) 9.3 4.5- 19.8 [facility] TylerCreatine Kinase [id number] 22:32:00* Test Item Value Reference Range Interpretation Comments Creatine Kinase MB (test code = 77963-8) 0.30 0-5.0 [facility] TylerTroponin K3292-07-94 22:32:00* Test Item Value Reference Range Interpretation Comments Troponin I (test code = HSC2377) < 0.001 0-0.300 [facility] TylerUrine PCD5201-59-82 22:27:00* Test Item Value Reference Range Interpretation Comments Urine WBC (test code = 5821-4) >50 0-5 H [facility] TylerUrine SHH8186-04-24 22:27:00* Test Item Value Reference Range Interpretation Comments Urine RBC (test code = 45686-3) 6-10 0-5 H [facility] TylerUrine Txphybyk0308-28-24 22:27:00* Test Item Value Reference Range Interpretation Comments Urine Bacteria (test code = 37044-6) MANY NONE H [facility] TylerUrine Epithelial Gavnk0192-77-14 22:27:00 * Test Item Value Reference Range Interpretation Comments Urine Epithelial Cells (test code = 80322-5) MODERATE NONE [facility] TylerCreatine Jfbgfw3617-88-75 22:27:00* Test Item Value Reference Range Interpretation Comments Creatine Kinase (test code = 2157-6) 14 29-168 L [facility] TylerUrine PVD5859-67-93 22:27:00* Test Item Value Reference Range Interpretation Comments Urine WBC (test code = 5821-4) >50 0-5 H [facility] TylerUrine CIZ0910-32-79 22:27:00* Test Item Value Reference Range Interpretation Comments Urine RBC (test code = 47094-2) 6-10 0-5 H [facility] TylerUrine Lylzxgqe0408-59-97 22:27:00* Test Item Value Reference Range Interpretation Comments Urine Bacteria (test code = 53773-6) MANY NONE H [facility] TylerUrine Epithelial Ofguh7908-40-06 22:27:00 * Test Item Value Reference Range Interpretation Comments Urine Epithelial Cells (test code = 62411-9) MODERATE NONE [facility] TylerUrine BHK8017-40-66 22:27:00* Test Item Value Reference Range Interpretation Comments Urine WBC (test code = 5821-4) >50 0-5 H [facility] TylerUrine XBM4689-61-44 22:27:00* Test Item Value Reference Range Interpretation Comments Urine RBC (test code = 85381-2) 6-10 0-5 H [facility] TylerUrine Ykjmjbnq8681-24-56 22:27:00* Test Item Value Reference Range Interpretation Comments Urine Bacteria (test code = 35646-3) MANY NONE H [facility] TylerUrine Epithelial Cxlzs5557-33-70 22:27:00 * Test Item Value Reference Range Interpretation Comments Urine Epithelial Cells (test code = 32221-3) MODERATE NONE [facility] TylerUrine Zcbtw2030-67-31 22:21:00* Test Item Value Reference Range Interpretation Comments Urine Color (test code = 5778-6) YELLOW YELLOW [facility] TylerUrine Beulrcl7337-76-65 22:21:00* Test Item Value Reference Range Interpretation Comments Urine Clarity (test code = 07346-9) TURBID CLEAR [facility] Ijbtbjq4239-43-58 22:21:00 * Test Item Value Reference Range Interpretation Comments Urine Specific [place] (test code = 5811-5) 1.030 1.010-1.02 5 H [facility] zH8241-46-01 22:21:00* Test Item Value Reference Range Interpretation Comments Urine pH (test code = 12904-2) 6 5-7 [facility] Leukocyte Ppytxwed0271-12-02 22:21:00* Test Item Value Reference Range Interpretation Comments Urine Leukocyte Esterase (test code = 5799-2) 2+ NEGATIVE [facility] Bjbmnhi9338-92-00 22:21:00* Test Item Value Reference Range Interpretation Comments Urine Nitrite (test code = 40570-0) POSITIVE NEGATIVE [facility] Ppnmrpo8139-88-62 22:21:00* Test Item Value Reference Range Interpretation Comments Urine Protein (test code = 5804-0) 1+ NEGATIVE [facility] Glucose (UA)2018-07-30 22:21:00* Test Item Value Reference Range Interpretation Comments Urine Glucose (UA) (test code = 2349-9) NEGATIVE NEGATIVE [facility] Pzhwqlm2074-15-85 22:21:00* Test Item Value Reference Range Interpretation Comments Urine Ketones (test code = 19856-5) TRACE NEGATIVE [facility] Bmjfqbxpadcw8483-72-26 22:21:00* Test Item Value Reference Range Interpretation Comments Urine Urobilinogen (test code = 12427-4) 0.2 0.2-1 [facility] TylerU[facility] Bxcibrwxv5586-74-03 22:21:00* Test Item Value Reference Range Interpretation Comments Urine Bilirubin (test code = 1978-6) NEGATIVE NEGATIVE [facility] TylerU[facility] Kpwyt4884-36-67 22:21:00* Test Item Value Reference Range Interpretation Comments Urine Blood (test code = 63840-7) TRACE NEGATIVE [facility] Bgblw2268-32-09 22:21:00* Test Item Value Reference Range Interpretation Comments Urine Color (test code = 5778-6) YELLOW YELLOW [facility] TylerUrine Ykwwctx6539-07-98 22:21:00* Test Item Value Reference Range Interpretation Comments Urine Clarity (test code = 07961-9) TURBID CLEAR [facility] Specific Qlgajkf9033-70-51 22:21:00 * Test Item Value Reference Range Interpretation Comments Urine Specific [place] (test code = 5811-5) 1.030 1.010-1.02 5 H [facility] TylerUrine uC2184-69-12 22:21:00* Test Item Value Reference Range Interpretation Comments Urine pH (test code = 49905-5) 6 5-7 [facility] Tyler[facility] Leukocyte Xeekodjd0402-18-66 22:21:00* Test Item Value Reference Range Interpretation Comments Urine Leukocyte Esterase (test code = 5799-2) 2+ NEGATIVE [facility] Ahwurgv9401-00-77 22:21:00* Test Item Value Reference Range Interpretation Comments Urine Nitrite (test code = 43921-2) POSITIVE NEGATIVE [facility] Ocrdzpo3446-17-04 22:21:00* Test Item Value Reference Range Interpretation Comments Urine Protein (test code = 5804-0) 1+ NEGATIVE [facility] Glucose (UA)2018-07-30 22:21:00* Test Item Value Reference Range Interpretation Comments Urine Glucose (UA) (test code = 2349-9) NEGATIVE NEGATIVE [facility] Tyler[facility] Fgxbxwt0494-03-40 22:21:00* Test Item Value Reference Range Interpretation Comments Urine Ketones (test code = 52968-4) TRACE NEGATIVE [facility] Znmxzlrxcbqf3137-11-16 22:21:00* Test Item Value Reference Range Interpretation Comments Urine Urobilinogen (test code = 23937-8) 0.2 0.2-1 [facility] TylerU[facility] Stdlvbqay0006-53-40 22:21:00* Test Item Value Reference Range Interpretation Comments Urine Bilirubin (test code = 1978-6) NEGATIVE NEGATIVE [facility] Fcowd1114-84-02 22:21:00* Test Item Value Reference Range Interpretation Comments Urine Blood (test code = 14510-2) TRACE NEGATIVE [facility] Onsnj2585-83-24 22:21:00* Test Item Value Reference Range Interpretation Comments Urine Color (test code = 5778-6) YELLOW YELLOW [facility] TylerU[facility] Kvwqtmu7983-64-62 22:21:00* Test Item Value Reference Range Interpretation Comments Urine Clarity (test code = 89636-5) TURBID CLEAR [facility] Specific Myftmvm2713-08-76 22:21:00 * Test Item Value Reference Range Interpretation Comments Urine Specific [place] (test code = 5811-5) 1.030 1.010-1.02 5 H [facility] TylerU[facility] jG5338-34-06 22:21:00* Test Item Value Reference Range Interpretation Comments Urine pH (test code = 37463-3) 6 5-7 [facility] Tyler[facility] Leukocyte Nvkwhmco9389-58-33 22:21:00* Test Item Value Reference Range Interpretation Comments Urine Leukocyte Esterase (test code = 5799-2) 2+ NEGATIVE [facility] Pgkmvgm9356-77-37 22:21:00* Test Item Value Reference Range Interpretation Comments Urine Nitrite (test code = 94301-3) POSITIVE NEGATIVE [facility] Ggspmps2722-38-28 22:21:00* Test Item Value Reference Range Interpretation Comments Urine Protein (test code = 5804-0) 1+ NEGATIVE [facility] Glucose (UA)2018-07-30 22:21:00* Test Item Value Reference Range Interpretation Comments Urine Glucose (UA) (test code = 2349-9) NEGATIVE NEGATIVE [facility] TylerU[facility] Gudsjle2143-28-59 22:21:00* Test Item Value Reference Range Interpretation Comments Urine Ketones (test code = 79885-5) TRACE NEGATIVE H [facility] TylerUrine Jwqkgxfoftsi3193-91-81 22:21:00* Test Item Value Reference Range Interpretation Comments Urine Urobilinogen (test code = 20035-2) 0.2 0.2-1 [facility] TylerU[facility] Qctisgyxn0500-29-92 22:21:00* Test Item Value Reference Range Interpretation Comments Urine Bilirubin (test code = 1978-6) NEGATIVE NEGATIVE [facility] TylerU[facility] Fwelm6208-84-57 22:21:00* Test Item Value Reference Range Interpretation Comments Urine Blood (test code = 66714-6) TRACE NEGATIVE H [facility] TylerInfluenza Virus Types A,B Antigen 2018-07-30 22:18:00* Test Item Value Reference Range Interpretation Comments Influenza Virus Types A,B Antigen (test code = 49723-6) NEGATIVE NEGATIVE [facility] TylerInfluenza Virus Types A,B Antigen 2018-07-30 22:18:00* Test Item Value Reference Range Interpretation Comments Influenza Virus Types A,B Antigen (test code = 45512-6) NEGATIVE NEGATIVE [facility] TylerInfluenza Virus Types A,B Antigen 2018-07-30 22:18:00* Test Item Value Reference Range Interpretation Comments Influenza Virus Types A,B Antigen (test code = 70494-5) NEGATIVE NEGATIVE [facility] TylerInfluenza Virus Types A,B Antigen 2018-07-30 22:18:00* Test Item Value Reference Range Interpretation Comments Influenza Virus Types A,B Antigen (test code = 54424-3) NEGATIVE NEGATIVE [facility] TylerCHEST SINGLE (PORTABLE)2018-07-30 20:24:00 [facility] [address] [place] [address] Patient Name: MOJGAN CUMMINGS MR #: [id number] : 1950 Age/Sex: 68/F Req #: [id number] Adm Physician: Ordered by: PHOENIX CIFUENTES MD Report #: [id number] Location: ER Room/Bed: Procedure: 1111-00 29 DX/CHEST SINGLE (PORTABLE) Exam Date: 07/30/18 [...] on 07/30/182028 COPY TO: PHOENIX CIFUENTES MD Stool Dvilgcakanzz8049-01-97 06:19:00* Test Item Value Reference Range Interpretation Comments Stool Calprotectin (test code = 44238-9) 1962 0-120 H Results verified by repeat testingConcentration Interpretation Follow- Up<16 - 50 ug/g Normal None>50 -120 ug/g Borderline Re- evaluate in 4-6 weeks >120 ug/g Abnormal Repeat as clinically indicatedPerformed at: [facility]Co[address] [id number] Director: Conrad Marte MD, Phone: [phone] Scott [facility] – College Stationtool Loffygempqsv5769-28-18 06:19:00* Test Item Value Reference Range Interpretation Comments Stool Calprotectin (test code = 23136-2) 1962 0-120 H Results verified by repeat testingConcentration Interpretation Follow- Up<16 - 50 ug/g Normal None>50 -120 ug/g Borderline Re- evaluate in 4-6 weeks >120 ug/g Abnormal Repeat as clinically indicatedPerformed at: [facility] [address] [id number] Director: Conrad Marte MD, Phone: [phone] Scott & White [facility] Center – College Stationtool Rgdxtnywbuol1613-92-52 06:19:00* Test Item Value Reference Range Interpretation Comments Stool Calprotectin (test code = 05954-0) 1962 0-120 H Results verified by repeat testingConcentration Interpretation Follow- Up<16 - 50 ug/g Normal None>50 -120 ug/g Borderline Re- evaluate in 4-6 weeks >120 ug/g Abnormal Repeat as clinically indicatedPerformed at: [employer] [facility] [address] [id number] Director: Conrad Marte MD, Phone: [phone] [facility] TylerUrine Oxamhzb9825-06-60 13:07:00* Test Item Value Reference Range Interpretation Comments Urine Culture (test code = 630-4) Organism: KLEBSIELLA PNEUMONIAE-E [facility] Qlfigyr2266-64-47 13:07:00* Test Item Value Reference Range Interpretation Comments Urine Culture (test code = 630-4) Organism: KLEBSIELLA PNEUMONIAE-E [facility] Gdfuesk1231-67-76 13:07:00* Test Item Value Reference Range Interpretation Comments Urine Culture (test code = 630-4) Organism: KLEBSIELLA PNEUMONIAE-E [facility] CampusBedside Zwjeczh6883-13-86 15:51:00* Test Item Value Reference Range Interpretation Comments Bedside Glucose (test code = 77377-1) 124 70-120 H Meter ID: [id number] Mother Frances Hospital – TylerUrine Culture 2018-06-28 10:31:00* Test Item Value Reference Range Interpretation Comments Urine Culture (test code = 630-4) Organism: GRAM NEGATIVE SUZY [facility] TylerDifferential Total Cells Counted 2018-06-28 07:45:00* Test Item Value Reference Range Interpretation Comments Differential Total Cells Counted (test code = Heather tial Total Cells Counted) 100 [facility] TylerNeutrophils % (Manual)2018-06-28 07:45:00 * Test Item Value Reference Range Interpretation Comments Neutrophils % (Manual) (test code = 29804-7) 74 40-74 [facility] TylerLymphocytes % (Manual)2018-06-28 07:45:00 * Test Item Value Reference Range Interpretation Comments Lymphocytes % (Manual) (test code = 737-7) 21 19-48 [facility] TylerMonocytes % (Manual)2018-06-28 07:45:00* Test Item Value Reference Range Interpretation Comments Monocytes % (Manual) (test code = 744-3) 4 3.4-9.0 [facility] TylerEosinophils % (Manual)2018-06-28 07:45:00 * Test Item Value Reference Range Interpretation Comments Eosinophils % (Manual) (test code = 714-6) 1 0-7 [facility] TylerPlatelet Gymrcvbk5229-05-77 07:45:00* Test Item Value Reference Range Interpretation Comments Platelet Estimate (test code = 46381-5) MODERATELY DECREASED [facility] TylerEosinophils % (Manual)2018-06-28 07:45:00 * Test Item Value Reference Range Interpretation Comments Eosinophils % (Manual) (test code = 714-6) 1 0-7 [facility] TylerEosinophils % (Manual)2018-06-28 07:45:00 * Test Item Value Reference Range Interpretation Comments Eosinophils % (Manual) (test code = 714-6) 1 0-7 [facility] TylerEosinophils % (Manual)2018-06-28 07:45:00 * Test Item Value Reference Range Interpretation Comments Eosinophils % (Manual) (test code = 714-6) 1 0-7 [facility] TylerUric Bzvn6275-42-30 07:05:00* Test Item Value Reference Range Interpretation Comments Uric Acid (test code = 3084-1) 6.0 2.5-7.0 [facility] TylerUric Mpnj2708-46-21 07:05:00* Test Item Value Reference Range Interpretation Comments Uric Acid (test code = 3084-1) 6.0 2.5-7.0 [facility] TylerUric Ipsk6901-55-39 07:05:00* Test Item Value Reference Range Interpretation Comments Uric Acid (test code = 3084-1) 6.0 2.5-7.0 [facility] TylerUric Tkku5483-26-55 07:05:00* Test Item Value Reference Range Interpretation Comments Uric Acid (test code = 3084-1) 6.0 2.5-7.0 [facility] TylerMagnesium Jbzhf5490-71-48 06:54:00* Test Item Value Reference Range Interpretation Comments Magnesium Level (test code = 55544-8) 1.7 1.3-2.1 [facility] Stationodium Mfdly6412-24-98 06:50:00* Test Item Value Reference Range Interpretation Comments Sodium Level (test code = 2951-2) 136 136-145 [facility] TylerPotassium Mdwno6844-13-74 06:50:00* Test Item Value Reference Range Interpretation Comments Potassium Level (test code = 2823-3) 4.1 3.5-5.1 [facility] TylerChloride Yowzu4774-20-14 06:50:00* Test Item Value Reference Range Interpretation Comments Chloride Level (test code = 2075-0) 100 98-107 [facility] TylerCarbon Dioxide Utxqd7013-05-04 06:50:00* Test Item Value Reference Range Interpretation Comments Carbon Dioxide Level (test code = 2028-9) 27 22-29 [facility] TylerAnion Gqs1125-93-18 06:50:00* Test Item Value Reference Range Interpretation Comments Anion Gap (test code = 28956-0) 13.1 8-16 [facility] TylerBlood Urea Qpvzifnh3167-54-56 06:50:00* Test Item Value Reference Range Interpretation Comments Blood Urea Nitrogen (test code = 3094-0) 15 7-26 [facility] TylerCreatinine2018-10-10 06:50:00* Test Item Value Reference Range Interpretation Comments Creatinine (test code = 2160-0) 0.61 0.57-1.11 [facility] TylerBUN/Creatinine Uknog3840-22-61 06:50:00* Test Item Value Reference Range Interpretation Comments BUN/Creatinine Ratio (test code = 3097-3) 25 6-25 [facility] TylerEstimat Glomerular Filtration Rate 2018-06-28 06:50:00* Test Item Value Reference Range Interpretation Comments Estimat Glomerular Filtration Rate (test code = 454955489) 60- >60 Ranges were taken from the National Kidney Disease Education Program and the [facility] literature.Reference ranges:60 or greater: Gnfiad26-12 ( for 3 consecutive months): Chronic kidney disease 15 or less: Kidney failureCHRISTUS [facility] – TylerGlucose Fdjrb8083-00-01 06:50:00* Test Item Value Reference Range Interpretation Comments Glucose Level (test code = USH6420) 108 74-118 [facility] TylerCalcium Vtqcm3378-97-43 06:50:00* Test Item Value Reference Range Interpretation Comments Calcium Level (test code = 92780-4) 8.8 8.4-10.2 [facility] TylerTotal Udxhvzgsz0615-04-72 06:50:00* Test Item Value Reference Range Interpretation Comments Total Bilirubin (test code = 1975-2) 0.2 0.2-1.2 [facility] TylerAspartate Amino Transf (AST/SGOT) 2018-06-28 06:50:00* Test Item Value Reference Range Interpretation Comments Aspartate Amino Transf (AST/SGOT) (test code = Aspartate Amino Transf (AST/SGOT)) 10 5-34 [facility] TylerAlanine Aminotransferase (ALT/SGPT) 2018-06-28 06:50:00* Test Item Value Reference Range Interpretation Comments Alanine Aminotransferase (ALT/SGPT) (test code = 1742-6) 6 0-55 [facility] TylerTotal Bseahac4714-75-81 06:50:00* Test Item Value Reference Range Interpretation Comments Total Protein (test code = 2885-2) 5.4 6.5-8.1 L [facility] TylerAlbumin2018-10-10 06:50:00* Test Item Value Reference Range Interpretation Comments Albumin (test code = 1751-7) 2.2 3.5-5.0 L [facility] TylerGlobulin2018-10-10 06:50:00* Test Item Value Reference Range Interpretation Comments Globulin (test code = 07675-5) 3.2 2.3-3.5 [facility] TylerAlbumin/Globulin Vmsjc9233-28-58 06:50:00 * Test Item Value Reference Range Interpretation Comments Albumin/Globulin Ratio (test code = 1759-0) 0.7 0.8-2.0 L [facility] TylerAlkaline Duzgrzssxzm0009-64-55 06:50:00* Test Item Value Reference Range Interpretation Comments Alkaline Phosphatase (test code = 6768-6) 84 40-150 [facility] TylerWhite Blood Viakg7937-06-22 06:41:00* Test Item Value Reference Range Interpretation Comments White Blood Count (test code = 6690-2) 6.31 4.8-10.8 [facility] TylerRed Blood Wvopv2245-84-58 06:41:00* Test Item Value Reference Range Interpretation Comments Red Blood Count (test code = 789-8) 3.80 3.6-5.1 [facility] TylerHemoglobin2018-10-10 06:41:00* Test Item Value Reference Range Interpretation Comments Hemoglobin (test code = 83704-8) 10.3 12.0-16.0 L [facility] TylerHematocrit2018-10-10 06:41:00* Test Item Value Reference Range Interpretation Comments Hematocrit (test code = 4544-3) 31.5 34.2-44.1 L [facility] TylerMean Corpuscular Mdizdq7201-97-10 06:41:00* Test Item Value Reference Range Interpretation Comments Mean Corpuscular Volume (test code = 787-2) 82.9 81-99 [facility] TylerMean Corpuscular Mzbttymfwg9621-23-54 06:41:00* Test Item Value Reference Range Interpretation Comments Mean Corpuscular Hemoglobin (test code = 785-6) 27.1 28-32 L [facility] TylerMean Corpuscular Hemoglobin Concent 2018-06-28 06:41:00* Test Item Value Reference Range Interpretation Comments Mean Corpuscular Hemoglobin Concent (test code = 786-4) 32.7 31-35 [facility] TylerRed Cell Distribution Wxebv3659-13-71 06:41:00* Test Item Value Reference Range Interpretation Comments Red Cell Distribution Width (test code = 85592-8) 15.5 11.7 -14.4 H [facility] TylerPlatelet Zamlq0441-50-87 06:41:00* Test Item Value Reference Range Interpretation Comments Platelet Count (test code = 777-3) 83 140-360 L [facility] TylerNeutrophils (%) (Auto)2018-06-28 06:41:00 * Test Item Value Reference Range Interpretation Comments Neutrophils (%) (Auto) (test code = 90166-0) 63.1 38.7-80.0 [facility] TylerLymphocytes (%) (Auto)2018-06-28 06:41:00 * Test Item Value Reference Range Interpretation Comments Lymphocytes (%) (Auto) (test code = 736-9) 22.5 18.0-39.1 [facility] TylerMonocytes (%) (Auto)2018-06-28 06:41:00* Test Item Value Reference Range Interpretation Comments Monocytes (%) (Auto) (test code = 5905-5) 10.9 4.4-11.3 [facility] TylerEosinophils (%) (Auto)2018-06-28 06:41:00 * Test Item Value Reference Range Interpretation Comments Eosinophils (%) (Auto) (test code = 713-8) 1.3 0.0-6.0 [facility] TylerBasophils (%) (Auto)2018-06-28 06:41:00* Test Item Value Reference Range Interpretation Comments Basophils (%) (Auto) (test code = 706-2) 0.3 0.0-1.0 [facility] TylerIM GRANULOCYTES %2018-06-28 06:41:00* Test Item Value Reference Range Interpretation Comments IM GRANULOCYTES % (test code = IM GRANULOCYTES %) 1.9 0.0- 1.0 H [facility] TylerNeutrophils # (Auto)2018-06-28 06:41:00* Test Item Value Reference Range Interpretation Comments Neutrophils # (Auto) (test code = 751-8) 4.0 2.1-6.9 [facility] TylerLymphocytes # (Auto)2018-06-28 06:41:00* Test Item Value Reference Range Interpretation Comments Lymphocytes # (Auto) (test code = 79156-7) 1.4 1.0-3.2 [facility] TylerMonocytes # (Auto)2018-06-28 06:41:00* Test Item Value Reference Range Interpretation Comments Monocytes # (Auto) (test code = 742-7) 0.7 0.2-0.8 [facility] TylerEosinophils # (Auto)2018-06-28 06:41:00* Test Item Value Reference Range Interpretation Comments Eosinophils # (Auto) (test code = 711-2) 0.1 0.0-0.4 [facility] TylerBasophils # (Auto)2018-06-28 06:41:00* Test Item Value Reference Range Interpretation Comments Basophils # (Auto) (test code = 704-7) 0.0 0.0-0.1 [facility] TylerAbsolute Immature Granulocyte (auto 2018-06-28 06:41:00* Test Item Value Reference Range Interpretation Comments Absolute Immature Granulocyte (auto (melina t code = Absolute Immature Granulocyte (auto) 0.12 0-0.1 H [facility] TylerCHEST SINGLE (PORTABLE)2018-06-27 14:00:[address] [place], [place] [address] Patient Name: MOJGAN CUMMINGS MR #: [id number] : 1950 Age/Sex: 68/F Req #: [id number] Adm Physician: ILAN STEIN MD Ordered by: MARK ANTHONY KERNS MD Report #: [id number] Location: MED/SURG3 Room/Bed: [facility] Procedure: [id number] DX/CH EST SINGLE (PORTABLE) Exam Date: 06/27/18 [...] 06/27/181403 COPY TO: MARK ANTHONY KERNS MD Urine FHD3115-74-08 13:55:00* Test Item Value Reference Range Interpretation Comments Urine WBC (test code = 5821-4) 0-5 0-5 [facility] TylerUrine SVQ7450-58-92 13:55:00* Test Item Value Reference Range Interpretation Comments Urine RBC (test code = 59757-8) NONE 0-5 [facility] TylerUrine Adtzpoyz8557-20-09 13:55:00* Test Item Value Reference Range Interpretation Comments Urine Bacteria (test code = 41512-5) MANY NONE H [facility] TylerUrine Epithelial Hmpuz2130-19-95 13:55:00 * Test Item Value Reference Range Interpretation Comments Urine Epithelial Cells (test code = 83787-4) NONE NONE [facility] TylerUrine Ogjlt2927-04-19 13:47:00* Test Item Value Reference Range Interpretation Comments Urine Color (test code = 5778-6) YELLOW YELLOW [facility] TylerUrine Zvoyjli0734-69-35 13:47:00* Test Item Value Reference Range Interpretation Comments Urine Clarity (test code = 86971-8) SL CLOUDY CLEAR [facility] Specific Tcjdksj6087-92-61 13:47:00 * Test Item Value Reference Range Interpretation Comments Urine Specific [place] (test code = 5811-5) 1.010 1.010-1.02 5 [facility] TylerUrine bU7916-58-37 13:47:00* Test Item Value Reference Range Interpretation Comments Urine pH (test code = 34867-2) 5 5-7 [facility] TylerUrine Leukocyte Knaahnae2671-02-26 13:47:00* Test Item Value Reference Range Interpretation Comments Urine Leukocyte Esterase (test code = 5799-2) TRACE NEGATIVE H [facility] TylerUrine Ynacvfs1377-32-08 13:47:00* Test Item Value Reference Range Interpretation Comments Urine Nitrite (test code = 75366-2) NEGATIVE NEGATIVE [facility] TylerUrine Bvkyaru7206-91-98 13:47:00* Test Item Value Reference Range Interpretation Comments Urine Protein (test code = 5804-0) NEGATIVE NEGATIVE [facility] TylerUrine Glucose (UA)2018-06-27 13:47:00* Test Item Value Reference Range Interpretation Comments Urine Glucose (UA) (test code = 2349-9) NEGATIVE NEGATIVE [facility] TylerUrine Umcywos8351-90-94 13:47:00* Test Item Value Reference Range Interpretation Comments Urine Ketones (test code = 72208-1) NEGATIVE NEGATIVE [facility] TylerUrine Kpawodnrhqur1811-19-74 13:47:00* Test Item Value Reference Range Interpretation Comments Urine Urobilinogen (test code = 63702-0) 0.2 0.2-1 [facility] TylerUrine Lkerphgvo5732-18-01 13:47:00* Test Item Value Reference Range Interpretation Comments Urine Bilirubin (test code = 1978-6) NEGATIVE NEGATIVE [facility] TylerUrine Ntari2641-29-48 13:47:00* Test Item Value Reference Range Interpretation Comments Urine Blood (test code = 52988-9) NEGATIVE NEGATIVE [facility] TylerClostridium Difficile Toxin A & B 2018-06-27 13:02:00* Test Item Value Reference Range Interpretation Comments Clostridium Difficile Toxin A & B (test code = 735569277) NEGATIVE NEGATIVE Testing on stool aspirate specimens is outside motor vehicle representative claims since specime n type not validated on this assay.[facility] Platelet Morphology Csihuyz2073-82-91 12:54:00* Test Item Value Reference Range Interpretation Comments Platelet Morphology Comment (test code = 21384-9) FEW LARGE [facility] TylerHypochromasia2018-10-09 12:54:00* Test Item Value Reference Range Interpretation Comments Hypochromasia (test code = 728-6) SLIGHT [facility] TylerAnisocytosis2018-10-09 12:54:00* Test Item Value Reference Range Interpretation Comments Anisocytosis (test code = 702-1) SLIGHT [facility] TylerMicrocytosis2018-10-09 12:54:00* Test Item Value Reference Range Interpretation Comments Microcytosis (test code = 741-9) SLIGHT [facility] TylerRed Cell Morphology Epfxsid1022-74-20 12:54:00* Test Item Value Reference Range Interpretation Comments Red Cell Morphology Comment (test code = 6742-1) NORMAL [facility] TylerHypochromasia2018-10-09 12:54:00* Test Item Value Reference Range Interpretation Comments Hypochromasia (test code = 728-6) SLIGHT [facility] Houstonsocytosis2018-10-09 12:54:00* Test Item Value Reference Range Interpretation Comments Anisocytosis (test code = 702-1) [facility] 12:54[facility]* Test Item Value Reference Range Interpretation Comments Microcytosis (test code = 741-9) [facility]IGHT [facility] 12:54:00* Test Item Value Reference Range Interpretation Comments Hypochromasia (test code = 728-6) [facility]IGHT [facility] 12:54:00* Test Item Value Reference Range Interpretation Comments Anisocytosis (test code = 702-1) [facility] 12:54:00* Test Item Value Reference Range Interpretation Comments Microcytosis (test code = 741-9) SLIGHT [facility] Dallas[facility]2018-10-09 12:54:00* Test Item Value Reference Range Interpretation Comments Hypochromasia (test code = 728-6) SLIGHT [facility]2018-10-09 12:54:00* Test Item Value Reference Range Interpretation Comments Anisocytosis (test code = 702-1) [facility] 12:54:00* Test Item Value Reference Range Interpretation Comments Microcytosis (test code = 741-9) SLIGHT [facility] Vkrfpuaax5529-31-40 06:43:00* Test Item Value Reference Range Interpretation Comments Free Thyroxine (test code = 3024-7) 0.98 0.9-1.8 [facility] TylerThyroid Stimulating Hormone (TSH) 2018-06-24 06:43:00* Test Item Value Reference Range Interpretation Comments Thyroid Stimulating Hormone (TSH) (test code = 11404-7) 5.255 0.350-4.940 H [facility] Dkqufesqu2238-28-92 06:43:00* Test Item Value Reference Range Interpretation Comments Free Thyroxine (test code = 3024-7) 0.98 0.9-1.8 [facility] TylerThyroid Stimulating Hormone (TSH) 2018-06-24 06:43:00* Test Item Value Reference Range Interpretation Comments Thyroid Stimulating Hormone (TSH) (test code = 30793-9) 5.255 0.350-4.940 H [facility] Vfqpynrwz3643-41-53 06:43:00* Test Item Value Reference Range Interpretation Comments Free Thyroxine (test code = 3024-7) 0.98 0.9-1.8 [facility] TylerThyroid Stimulating Hormone (TSH) 2018-06-24 06:43:00* Test Item Value Reference Range Interpretation Comments Thyroid Stimulating Hormone (TSH) (test code = 06626-9) 5.255 0.350-4.940 H [facility] Sqzmkwqzs6084-61-25 06:43:00* Test Item Value Reference Range Interpretation Comments Free Thyroxine (test code = 3024-7) 0.98 0.9-1.8 [facility] TylerThyroid Stimulating Hormone (TSH) 2018-06-24 06:43:00* Test Item Value Reference Range Interpretation Comments Thyroid Stimulating Hormone (TSH) (test code = 92649-2) 5.255 0.350-4.940 H [facility] TylerPrealbumin2018-10-05 13:20:00* Test Item Value Reference Range Interpretation Comments Prealbumin (test code = 42229-9) Performed at: - [address] [id number] Director: Rashawn Green MD, Phone: [phone] Mother Frances Hospital – TylerPrealbumin2018-10-05 13:20:00* Test Item Value Reference Range Interpretation Comments Prealbumin (test code = 21570-5) 18 36 Performed at: [facility] [address] [id number] Director: Rashawn Green MD, Phone: [phone] Mother Frances Hospital – TylerPrealbumin2018-10-05 13:20:00* Test Item Value Reference Range Interpretation Comments Prealbumin (test code = 87928-2) Performed at: [facility] [address] [id number] Director: Rashawn Green MD, Phone: [phone] Mother Frances Hospital – TylerPrealbumin2018-10-05 13:20:00* Test Item Value Reference Range Interpretation Comments Prealbumin (test code = 39606-7) Performed at: [facility] [address] [id number] Director: Rashawn Green MD, Phone: [phone] Mother Frances Hospital – TylerPolychromasia2018-10-05 08:46:00* Test Item Value Reference Range Interpretation Comments Polychromasia (test code = 34617-8) [facility] 08:46:00* Test Item Value Reference Range Interpretation Comments Poikilocytosis (test code = 779-9) SLIGHT [facility]2018-10-05 08:46:00* Test Item Value Reference Range Interpretation Comments Polychromasia (test code = 50628-3) [facility]2018-10-05 08:46:00* Test Item Value Reference Range Interpretation Comments Poikilocytosis (test code = 779-9) SLIGHT [facility]2018-10-05 08:46:00* Test Item Value Reference Range Interpretation Comments Polychromasia (test code = 51774-8) [facility]2018-10-05 08:46:00* Test Item Value Reference Range Interpretation Comments Poikilocytosis (test code = 779-9) SLIGHT [facility]2018-10-05 08:46:00* Test Item Value Reference Range Interpretation Comments Polychromasia (test code = 35392-5) [facility]2018-10-05 08:46:00* Test Item Value Reference Range Interpretation Comments Poikilocytosis (test code = 779-9) SLIGHT [facility] F7789-18-74 16:47:00 [facility] [address] [place], [place] [address] Patient Name: MOJGAN CUMMINGS MR #: [id number] : 0 1950 Age/Sex: 68/F Req #: [id number] Adm Physician: ILAN STEIN MD Ordered by: SHABBIR MÉNDEZ MD Report #: [id number] Locat ion: ERHOLD Room/Bed: [place] [address] Procedure: [id number] C T/CT ABDOMEN/PELVIS W Exam Date: Exam [...] 4:54 PM Dictated By: SHANTELLE JHA MD 53 Transcribed By: BAMBI on 06/21/181653 COPY TO: HSABBIR MÉNDEZ MD Amylase Kvksf3923-50-67 14:57:00* Test Item Value Reference Range Interpretation Comments Amylase Level (test code = 1798-8) 19 25-125 L [facility] TylerLipase2018-10-03 14:57:00* Test Item Value Reference Range Interpretation Comments Lipase (test code = 3040-3) [facility] TylerAmylase Oglqi3304-68-20 14:57:00* Test Item Value Reference Range Interpretation Comments Amylase Level (test code = 1798-8) 19 25-125 L [facility] TylerLipase2018-10-03 14:57:00* Test Item Value Reference Range Interpretation Comments Lipase (test code = 3040-3) [facility] TylerAmylase Lgkuj7062-59-97 14:57:00* Test Item Value Reference Range Interpretation Comments Amylase Level (test code = 1798-8) 19 25-125 L [facility] TylerLipase2018-10-03 14:57:00* Test Item Value Reference Range Interpretation Comments Lipase (test code = 3040-3) [facility] TylerAmylase Fnauj2458-45-00 14:57:00* Test Item Value Reference Range Interpretation Comments Amylase Level (test code = 1798-8) 19 25-125 L [facility] TylerLipase2018-10-03 14:57:00* Test Item Value Reference Range Interpretation Comments Lipase (test code = 3040-3) 15 8-78 [facility] TylerUrine Amorphous Qmkhztbv7263-60-42 14:55:00* Test Item Value Reference Range Interpretation Comments Urine Amorphous Sediment (test code = 8246-1) MODERATE FEW H [facility] TylerUrine Amorphous Nuofeglh8150-57-24 14:55:00* Test Item Value Reference Range Interpretation Comments Urine Amorphous Sediment (test code = 8246-1) MODERATE FEW H [facility] TylerUrine Amorphous Ztwrbzkt7562-80-89 14:55:00* Test Item Value Reference Range Interpretation Comments Urine Amorphous Sediment (test code = 8246-1) MODERATE FEW H [facility] TylerUrine Amorphous Ifhirgix1556-23-17 14:55:00* Test Item Value Reference Range Interpretation Comments Urine Amorphous Sediment (test code = 8246-1) MODERATE FEW H [facility] TylerLactic Acid Hwsre7421-04-76 14:52:00* Test Item Value Reference Range Interpretation Comments Lactic Acid Level (test code = Lactic Acid Level) 19.1 4.5- 19.8 [facility] TylerMODIFIED BA. FOAHMPU6720-90-33 08:25:00 [place] [address] Patient Name: MOJGAN CUMMINGS MR #: [id number] : 0 1950 Age/Sex: 68/F Req #: [id number] Adm Physician: ILAN STEIN MD Ordered by: Pilar Simeon DOCTOR CHIROPRACTIC Report #: [id number] Locati on: MED/SURG2 Room/Bed: 213 Procedure: [id number] DX /MODIFIED BA. SWALLOW Exam Date: 06/06/18 [...] DEN on 06/07/18824 COPY TO: PILAR SIMEON DOCTOR CHIROPRACTIC Bedside Imvooiy2919-90-00 16:21:00* Test Item Value Reference Range Interpretation Comments Bedside Glucose (test code = 89521-4) 148 70-120 H Meter ID: [id number] [facility] – TylerBlood Culture 2018-06-06 15:04:00* Test Item Value Reference Range Interpretation Comments Blood Culture (test code = 17285151) NO GROWTH AFTER 5 DAYS, FINAL REPORT [facility] TylerBlood Bploync0192-98-56 15:04:00* Test Item Value Reference Range Interpretation Comments Blood Culture (test code = 22518107) NO GROWTH AFTER 5 DAYS, FINAL REPORT [facility] TylerDifferential Total Cells Counted 2018-06-06 07:15:00* Test Item Value Reference Range Interpretation Comments Differential Total Cells Counted (test code = Differen tial Total Cells Counted) 100 [facility] TylerNeutrophils % (Manual)2018-06-06 07:15:00 * Test Item Value Reference Range Interpretation Comments Neutrophils % (Manual) (test code = 43188-8) 67 40-74 [facility] TylerBand Neutrophils %2018-06-06 07:15:00* Test Item Value Reference Range Interpretation Comments Band Neutrophils % (test code = 764-1) 1 [facility] TylerLymphocytes % (Manual)2018-06-06 07:15:00 * Test Item Value Reference Range Interpretation Comments Lymphocytes % (Manual) (test code = 737-7) 16 19-48 L [facility] TylerMonocytes % (Manual)2018-06-06 07:15:00* Test Item Value Reference Range Interpretation Comments Monocytes % (Manual) (test code = 744-3) 10 3.4-9.0 H [facility] TylerEosinophils % (Manual)2018-06-06 07:15:00 * Test Item Value Reference Range Interpretation Comments Eosinophils % (Manual) (test code = 714-6) 3 0-7 [facility] TylerBasophils % (Manual)2018-06-06 07:15:00* Test Item Value Reference Range Interpretation Comments Basophils % (Manual) (test code = 23248-0) 1 0-1.5 [facility] TylerMyelocytes %2018-06-06 07:15:00* Test Item Value Reference Range Interpretation Comments Myelocytes % (test code = 749-2) 2 0-0 H [facility] TylerPlatelet Sepehquv7067-17-44 07:15:00* Test Item Value Reference Range Interpretation Comments Platelet Estimate (test code = 31191-5) SLIGHTLY DECREASED [facility] TylerPlatelet Morphology Cckzyep3896-02-20 07:15:00* Test Item Value Reference Range Interpretation Comments Platelet Morphology Comment (test code = 75781-2) NORMAL [facility] TylerAnisocytosis2018-09-18 07:15:00* Test Item Value Reference Range Interpretation Comments Anisocytosis (test code = 702-1) SLIGHT [facility] TylerToxic Mrsqoihonkd1499-55-06 07:15:00* Test Item Value Reference Range Interpretation Comments Toxic Granulation (test code = 803-7) SLIGHT [facility] TylerRed Cell Morphology Ymblwrt1240-54-71 07:15:00* Test Item Value Reference Range Interpretation Comments Red Cell Morphology Comment (test code = 6742-1) NORMAL [facility] TylerBand Neutrophils %2018-06-06 07:15:00* Test Item Value Reference Range Interpretation Comments Band Neutrophils % (test code = 764-1) 1 [facility] TylerBasophils % (Manual)2018-06-06 07:15:00* Test Item Value Reference Range Interpretation Comments Basophils % (Manual) (test code = 54793-9) 1 0-1.5 [facility] TylerMyelocytes %2018-06-06 07:15:00* Test Item Value Reference Range Interpretation Comments Myelocytes % (test code = 749-2) 2 0-0 H [facility] TylerToxi Tasofelytdo6107-05-69 07:15:00* Test Item Value Reference Range Interpretation Comments Toxic Granulation (test code = 803-7) SLIGHT [facility] TylerBand Neutrophils %2018-06-06 07:15:00* Test Item Value Reference Range Interpretation Comments Band Neutrophils % (test code = 764-1) 1 [facility] TylerBasophils % (Manual)2018-06-06 07:15:00* Test Item Value Reference Range Interpretation Comments Basophils % (Manual) (test code = 09024-2) 1 0-1.5 [facility] TylerMyelocytes %2018-06-06 07:15:00* Test Item Value Reference Range Interpretation Comments Myelocytes % (test code = 749-2) 2 0-0 H [facility] TylerToxi Eupnrddvdyn2297-40-08 07:15:00* Test Item Value Reference Range Interpretation Comments Toxic Granulation (test code = 803-7) SLIGHT [facility] TylerBand Neutrophils %2018-06-06 07:15:00* Test Item Value Reference Range Interpretation Comments Band Neutrophils % (test code = 764-1) 1 [facility] TylerBasophils % (Manual)2018-06-06 07:15:00* Test Item Value Reference Range Interpretation Comments Basophils % (Manual) (test code = 41824-6) 1 0-1.5 [facility] TylerMyelocytes %2018-06-06 07:15:00* Test Item Value Reference Range Interpretation Comments Myelocytes % (test code = 749-2) 2 0-0 H [facility] TylerToxic Yvqrkfxlnpd1679-03-09 07:15:00* Test Item Value Reference Range Interpretation Comments Toxic Granulation (test code = 803-7) SLIGHT [facility] TylerBand Neutrophils %2018-06-06 07:15:00* Test Item Value Reference Range Interpretation Comments Band Neutrophils % (test code = 764-1) 1 [facility] TylerBasophils % (Manual)2018-06-06 07:15:00* Test Item Value Reference Range Interpretation Comments Basophils % (Manual) (test code = 62046-0) 1 0-1.5 [facility] TylerMyelocytes %2018-06-06 07:15:00* Test Item Value Reference Range Interpretation Comments Myelocytes % (test code = 749-2) 2 0-0 H [facility] TylerToxic Fdkyafrmjzf2499-73-11 07:15:00* Test Item Value Reference Range Interpretation Comments Toxic Granulation (test code = 803-7) SLIGHT [facility] Stationodium Admwm9908-74-22 05:40:00* Test Item Value Reference Range Interpretation Comments Sodium Level (test code = 2951-2) 147 136-145 H [facility] TylerPotassium Njchc2510-22-96 05:40:00* Test Item Value Reference Range Interpretation Comments Potassium Level (test code = 2823-3) 3.5 3.5-5.1 [facility] TylerChloride Uyvpk1784-63-32 05:40:00* Test Item Value Reference Range Interpretation Comments Chloride Level (test code = 2075-0) 118 98-107 H [facility] TylerCarbon Dioxide Diaws7493-44-04 05:40:00* Test Item Value Reference Range Interpretation Comments Carbon Dioxide Level (test code = 2028-9) 20 22-29 L [facility] TylerAnion Umq9110-77-80 05:40:00* Test Item Value Reference Range Interpretation Comments Anion Gap (test code = 20171-9) 12.5 8-16 [facility] TylerBlood Urea Jnkkdchm2987-79-86 05:40:00* Test Item Value Reference Range Interpretation Comments Blood Urea Nitrogen (test code = 3094-0) 15 7-26 [facility] TylerCreatinine2018-09-18 05:40:00* Test Item Value Reference Range Interpretation Comments Creatinine (test code = 2160-0) 0.76 0.57-1.11 [facility] TylerBUN/Creatinine Tunro9626-30-16 05:40:00* Test Item Value Reference Range Interpretation Comments BUN/Creatinine Ratio (test code = 3097-3) 20 6- [facility] TylerEstimat Glomerular Filtration Rate 2018-06-06 05:40:00* Test Item Value Reference Range Interpretation Comments Estimat Glomerular Filtration Rate (test code = 862426502) 60- >60 Ranges were taken from the National Kidney Disease Education Program and the [facility] Kidney Foundation literature.Reference ranges:60 or greater: Utcjfn78-07 ( for 3 consecutive months): Chronic kidney disease 15 or less: Kidney failureCHRISTUS Mother Frances Hospital – TylerGlucose Cnphq9121-49-61 05:40:00* Test Item Value Reference Range Interpretation Comments Glucose Level (test code = MRY3666) 127 74-118 H [facility] TylerCalcium Gmdjd0391-68-40 05:40:00* Test Item Value Reference Range Interpretation Comments Calcium Level (test code = 17402-2) 8.8 8.4-10.2 [facility] TylerMagnesium Iydit1394-44-35 05:40:00* Test Item Value Reference Range Interpretation Comments Magnesium Level (test code = 15357-1) 1.5 1.3-2.1 [facility] TylerWhite Blood Iqoca1725-06-98 05:08:00* Test Item Value Reference Range Interpretation Comments White Blood Count (test code = 6690-2) 9.75 4.8-10.8 [facility] TylerRed Blood Devpq5337-20-14 05:08:00* Test Item Value Reference Range Interpretation Comments Red Blood Count (test code = 789-8) 4.36 3.6-5.1 [facility] TylerHemoglobin2018-09-18 05:08:00* Test Item Value Reference Range Interpretation Comments Hemoglobin (test code = 15301-0) 12.1 12.0-16.0 [facility] TylerHematocrit2018-09-18 05:08:00* Test Item Value Reference Range Interpretation Comments Hematocrit (test code = 4544-3) 37.7 34.2-44.1 [facility] TylerMean Corpuscular Bkpjyq6708-11-43 05:08:00* Test Item Value Reference Range Interpretation Comments Mean Corpuscular Volume (test code = 787-2) 86.5 81-99 [facility] TylerMean Corpuscular Ithmpehjzs2542-37-24 05:08:00* Test Item Value Reference Range Interpretation Comments Mean Corpuscular Hemoglobin (test code = 785-6) 27.8 28-32 L [facility] TylerMean Corpuscular Hemoglobin Concent 2018-06-06 05:08:00* Test Item Value Reference Range Interpretation Comments Mean Corpuscular Hemoglobin Concent (test code = 786-4) 32.1 31-35 [facility] TylerRed Cell Distribution Ndmsw7023-46-06 05:08:00* Test Item Value Reference Range Interpretation Comments Red Cell Distribution Width (test code = 93992-5) 14.5 11.7 -14.4 H [facility] TylerPlatelet Fjdag1331-91-09 05:08:00* Test Item Value Reference Range Interpretation Comments Platelet Count (test code = 777-3) 94 140-360 L [facility] TylerNeutrophils (%) (Auto)2018-06-06 05:08:00 * Test Item Value Reference Range Interpretation Comments Neutrophils (%) (Auto) (test code = 06767-2) 71.3 38.7-80.0 [facility] TylerLymphocytes (%) (Auto)2018-06-06 05:08:00 * Test Item Value Reference Range Interpretation Comments Lymphocytes (%) (Auto) (test code = 736-9) 14.7 18.0-39.1 L [facility] TylerMonocytes (%) (Auto)2018-06-06 05:08:00* Test Item Value Reference Range Interpretation Comments Monocytes (%) (Auto) (test code = 5905-5) 7.6 4.4-11.3 [facility] TylerEosinophils (%) (Auto)2018-06-06 05:08:00 * Test Item Value Reference Range Interpretation Comments Eosinophils (%) (Auto) (test code = 713-8) 3.3 0.0-6.0 [facility] TylerBasophils (%) (Auto)2018-06-06 05:08:00* Test Item Value Reference Range Interpretation Comments Basophils (%) (Auto) (test code = 706-2) 0.4 0.0-1.0 [facility] TylerIM GRANULOCYTES %2018-06-06 05:08:00* Test Item Value Reference Range Interpretation Comments IM GRANULOCYTES % (test code = IM GRANULOCYTES %) 2.7 0.0- 1.0 H [facility] TylerNeutrophils # (Auto)2018-06-06 05:08:00* Test Item Value Reference Range Interpretation Comments Neutrophils # (Auto) (test code = 751-8) 7.0 2.1-6.9 H [facility] TylerLymphocytes # (Auto)2018-06-06 05:08:00* Test Item Value Reference Range Interpretation Comments Lymphocytes # (Auto) (test code = 09267-9) 1.4 1.0-3.2 [facility] TylerMonocytes # (Auto)2018-06-06 05:08:00* Test Item Value Reference Range Interpretation Comments Monocytes # (Auto) (test code = 742-7) 0.7 0.2-0.8 [facility] TylerEosinophils # (Auto)2018-06-06 05:08:00* Test Item Value Reference Range Interpretation Comments Eosinophils # (Auto) (test code = 711-2) 0.3 0.0-0.4 [facility] TylerBasophils # (Auto)2018-06-06 05:08:00* Test Item Value Reference Range Interpretation Comments Basophils # (Auto) (test code = 704-7) 0.0 0.0-0.1 [facility] TylerAbsolute Immature Granulocyte (auto 2018-06-06 05:08:00* Test Item Value Reference Range Interpretation Comments Absolute Immature Granulocyte (auto (melina t code = Absolute Immature Granulocyte (auto) 0.26 0-0.1 H [facility] TylerWRIST RIGHT 2 CMWVQ2303-82-20 15:07:00 [place] [address] Patient Name: MOJGAN CUMMINGS MR #: [id number] : 0 1950 Age/Sex: 68/F Req #: [id number] Adm Physician: ILAN STEIN MD Ordered by: Pilar Simeon DOCTOR CHIROPRACTIC Report #: [id number] Locati on: MED/SURG2 Room/Bed: 2131 Procedure: [id number] DX /WRIST RIGHT 2 VIEWS Exam Date: [...] 06/05/18 1509 COPY TO: PILAR SIMEON NP WRIST LEFT 2 MALWU5448-95-40 15:07:00 [place] [address] Patient Name: MOJGAN CUMMINGS MR #: [id number] : 1950 Age/Sex: 68/F Req #: [id number] Adm Physician: ILAN STEIN MD Ordered by: Pilar Simeon NP Report #: [id number] Location: [facility] Room/Bed: [facility] Procedure: [id number] DX /WRIST LEFT 2 VIEWS Exam Date: [...] SHANTELLE JHA MD 1509 Tra nscribed By: BAMBI on 06/05/18 1509 COPY TO: PILAR SIMEON NP SHOULDER LEFT TSSUEHXZ3554-89-13 15:06:00 [place] [id number] Patient Name: MOJGAN CUMMINGS MR #: [id number] : 1950 Age/Sex: 68/F Req #: [id number] Adm Physician: ILAN STEIN MD Ordered by: Pilar Simeon NP Report #: [id number] Location: MED/SURG2 Room/Bed: [facility] Procedure: [id number] DX /SHOULDER LEFT COMPLETE Exam Date: 06/05/18 [...] PM Dictated By: SHANTELLE WATSON CH, MD 1507 Transcrib ed By: BAMBI on 06/05/18 1507 COPY TO: PILAR SIMEON DOCTOR CHIROPRACTIC CHEST SINGLE (PORTABLE)2018-06-05 06:54:00 [place] [address] Patient Name: MOJGAN CUMMINGS MR #: [id number] : 1950 Age/Sex: 68/F Req #: [id number] Adm Physician: ILAN STEIN MD Ordered by: BALBIR BARDALES MD Report #: [id number] Location: MED/SURG2 Room/Bed: 213 Procedure: [id number] DX/CH EST SINGLE (PORTABLE) Exam Date: 06/05/18 Exam [...] 6:55 AM Dictated By: SHANA TIAN MD [facility] Signed By: SHANA TIAN MD on 06/05/18654 Transcribed By: BAMBI on 06/05/18654 COPY TO: BALBIR BARDALES MD Blood Mrnfwea4981-13-61 08:28:00* Test Item Value Reference Range Interpretation Comments Blood Culture (test code = 600-7) Organism: STAPHYLOCOCCUS SP COAG NEG [facility]Blmel[facility] Nqvpaxm7024-20-99 08:28:00* Test Item Value Reference Range Interpretation Comments Blood Culture (test code = 600-7) Organism: STAPHYLOCOCCUS SP COAG NEG [facility] TylerBlmelrose area hospital Douvtvb3932-54-49 08:28:00* Test Item Value Reference Range Interpretation Comments Blood Culture (test code = 600-7) Organism: STAPHYLOCOCCUS SP COAG NEG [facility] TylerBlood Vatqeme3419-42-03 08:28:00* Test Item Value Reference Range Interpretation Comments Blood Culture (test code = 600-7) Organism: STAPHYLOCOCCUS SP COAG NEG [facility] TylerBlmelrose [facility] hospital Uvjnrqt0447-61-64 08:28:00* Test Item Value Reference Range Interpretation Comments Blood Culture (test code = 600-7) Organism: STAPHYLOCOCCUS SP COAG NEG [facility] TylerPELVIS AP 1-2 SGKHP3484-23-36 07:07:00 [place] [address] Patient Name: MOJGAN CUMMINGS MR #: [id number] : 0 1950 Age/Sex: 68/F Req #: [id number] Adm Physician: ILAN STEIN MD Ordered by: ILAN STEIN MD Report #: [id number] Locatio n: MED/SURG2 Room/Bed: [facility] Procedure: [id number] DX/ PELVIS AP 1-2 VIEWS Exam Date: [...] ILAN STEIN MD FEMUR TWO VIEW MINIMUM YNLBL1576-51-80 07:06:00 [place] [address] Patient Name: MOJGAN CUMMINGS MR #: [id number] : 0 1950 Age/Sex: 68/F Req #: [id number] Adm Physician: ILAN STEIN MD Ordered by: ILAN STEIN MD Report #: [id number] Locatio n: MED/SURG2 Room/Bed: [facility] Procedure: [id number] DX/ FEMUR TWO VIEW MINIMUM RIGHT Exam [...] TARA STEIN MD FEMUR 2 VIEWS MINIMUM GRCF9417-71-99 06:43:[address] [place] [address] Patient Name: MOJGAN CUMMINGS MR #: [id number] : 1950 Age/Sex: 68/F Req #: [id number] Adm Physician: ILAN STEIN MD Ordered by: ILAN STEIN MD Report #: [id number] Location: [facility] Room/Bed: [facility] Procedure: [id number] DX/ FEMUR 2 VIEWS MINIMUM LEFT Exam Date: Exam Time: REPORT STATUS: Signed FEMUR 2 VIEWS MINIMUM LEFT HISTORY: Status p ost fall COMPARISON: 06/03/2018 pelvic x-ray and 01/13/2018 KUB FIN DINGS: Bones: Chronic fracture dislocation of the [...] TIAN MD 5 Transcribed By: BAMBI on 06/03/18 07 COPY TO: ILAN STEIN MD CT BRAIN SK2226-59-87 06:17:00 [facility] [address] [place] [address] Patient Name: MOJGAN CUMMINGS MR #: [id number] : 1950 Age/Sex: 68/F Req #: [id number] Adm Physician: ILAN STEIN MD Ordered by: ILAN STEIN MD Report #: [id number] Location: MED/SURG2 Room/Bed: 2131 Procedure: [id number] CT/ CT BRAIN WO Exam Date: 06/03/18 [...] on 06/03/18621 COPY TO: ILAN STEIN MD Clostridium Difficile Toxin A & F4688-45-07 12:07:00* Test Item Value Reference Range Interpretation Comments Clostridium Difficile Toxin A & B (test code = 516911474) NEGATIVE NEGATIVE Testing on stool aspirate specimens is outside motor vehicle representative claims since specime n type not validated on this assay.[facility] Reactive Iioffsidcij0815-69-15 08:04:00* Test Item Value Reference Range Interpretation Comments Reactive Lymphocytes (test code = 18215-6) 4 [facility] TylerHypochromasia2018-09-14 08:04:00* Test Item Value Reference Range Interpretation Comments Hypochromasia (test code = 728-6) SLIGHT [facility] TylerReactive Lvnguqmkgwm6464-62-02 08:04:00* Test Item Value Reference Range Interpretation Comments Reactive Lymphocytes (test code = 98606-4) 4 [facility] TylerReactive Cepjqggbmbf2811-51-78 08:04:00* Test Item Value Reference Range Interpretation Comments Reactive Lymphocytes (test code = 36664-7) 4 [facility] TylerReactive Ovyavngzizx5747-66-32 08:04:00* Test Item Value Reference Range Interpretation Comments Reactive Lymphocytes (test code = 03428-5) 4 [facility] TylerReactive Jxgrwpqztyw7288-08-33 08:04:00* Test Item Value Reference Range Interpretation Comments Reactive Lymphocytes (test code = 87488-5) 4 [facility] TylerCreatine Eoanrz8991-00-25 06:23:00* Test Item Value Reference Range Interpretation Comments Creatine Kinase (test code = 2157-6) 14 29-168 L [facility] TylerFree Sobrtbfye8931-61-07 06:23:00* Test Item Value Reference Range Interpretation Comments Free Thyroxine (test code = 3024-7) 1.22 0.9-1.8 [facility] TylerThyroid Stimulating Hormone (TSH) 2018-06-02 06:23:00* Test Item Value Reference Range Interpretation Comments Thyroid Stimulating Hormone (TSH) (test code = 85373-5) 3.735 0.350-4.940 [facility] TylerCreatine Rahymz8169-12-81 06:23:00* Test Item Value Reference Range Interpretation Comments Creatine Kinase (test code = 2157-6) 14 29-168 L [facility] TylerCreatine Kinase FA3586-92-84 05:30:00* Test Item Value Reference Range Interpretation Comments Creatine Kinase MB (test code = 71152-1) 0.70 0-5.0 [facility] F9520-20-74 05:30:00* Test Item Value Reference Range Interpretation Comments Troponin I (test code = FNS5317) -0.001 0-0.300 [facility] TylerCreatine Kinase YY1464-86-51 05:30:00* Test Item Value Reference Range Interpretation Comments Creatine Kinase MB (test code = 61229-3) 0.70 0-5.0 [place] [address]32018-09-14 05:30:00* Test Item Value Reference Range Interpretation Comments Troponin I (test code = USM1639) -0.001 0-0.300 [facility] TylerB-Type Natriuretic Pobylof6419-92-37 05:28:00* Test Item Value Reference Range Interpretation Comments B-Type Natriuretic Peptide (test code = 90061-5) 32.4 0-100 [facility] TylerB-Type Natriuretic Svsrova3604-26-18 05:28:00* Test Item Value Reference Range Interpretation Comments B-Type Natriuretic Peptide (test code = 06330-1) 32.4 0-100 [facility] TylerB-Type Natriuretic Fevspic6970-45-72 05:28:00* Test Item Value Reference Range Interpretation Comments B-Type Natriuretic Peptide (test code = 91785-0) 32.4 0-100 [facility] TylerCHEST SINGLE (PORTABLE)2018-06-01 13:10:00 [place] [address] Patient Name: MOJGAN CUMMINGS MR #: [id number] : 1950 Age/Sex: 68/F Req #: [id number] Adm Physician: Ordered by: WILIAM MARTINEZ MD Report #: [id number] Location: ER Room/Bed: Procedure: [id number] DX/CHEST SINGLE (PORTABLE) E xam Date: 06/01/18 [...] on 06/01/2018 1:12 PM Dictated By: SHANTELLE HJA MD Electronically Si gned By: SHANTELLE JHA MD on 06/01/18 131 Transcribed By: BAMBI on 131 COPY TO: WILIAM MARTINEZ MD Total Cubjeulgd9129-57-55 12:59:00* Test Item Value Reference Range Interpretation Comments Total Bilirubin (test code = 1975-2) 0.4 0.2-1.2 [facility] TylerAspartate Amino Transf (AST/SGOT) 2018-06-01 12:59:00* Test Item Value Reference Range Interpretation Comments Aspartate Amino Transf (AST/SGOT) (test code = Aspartate Amino Transf (AST/SGOT)) 11 5-34 [facility] TylerAlanine Aminotransferase (ALT/SGPT) 2018-06-01 12:59:00* Test Item Value Reference Range Interpretation Comments Alanine Aminotransferase (ALT/SGPT) (test code = 1742-6) 18 0-55 [facility] TylerTotal Jrmjxju6952-74-68 12:59:00* Test Item Value Reference Range Interpretation Comments Total Protein (test code = 2885-2) 7.0 6.5-8.1 [facility] TylerAlbumin2018-09-13 12:59:00* Test Item Value Reference Range Interpretation Comments Albumin (test code = 1751-7) 3.3 3.5-5.0 L [facility] TylerGlobulin2018-09-13 12:59:00* Test Item Value Reference Range Interpretation Comments Globulin (test code = 20082-5) 3.7 2.3-3.5 H [facility] TylerAlbumin/Globulin Ruxtt3016-57-81 12:59:00 * Test Item Value Reference Range Interpretation Comments Albumin/Globulin Ratio (test code = 1759-0) 0.9 0.8-2.0 [facility] TylerAlkaline Ntkdodmzdgo0978-88-79 12:59:00* Test Item Value Reference Range Interpretation Comments Alkaline Phosphatase (test code = 6768-6) 95 40-150 [facility] TylerLactic Acid Egoyt9571-43-00 12:44:00* Test Item Value Reference Range Interpretation Comments Lactic Acid Level (test code = Lactic Acid Level) 12.1 4.5- 19.8 [facility] Stationodium Rdjpv7269-27-63 07:16:00* Test Item Value Reference Range Interpretation Comments Sodium Level (test code = 2951-2) 138 136-145 [facility] TylerPotassium Fcffs6218-16-73 07:16:00* Test Item Value Reference Range Interpretation Comments Potassium Level (test code = 2823-3) 4.0 3.5-5.1 [facility] TylerChloride Iccad5217-90-54 07:16:00* Test Item Value Reference Range Interpretation Comments Chloride Level (test code = 2075-0) 100 98-107 [facility] TylerCarbon Dioxide Nwrts2766-56-70 07:16:00* Test Item Value Reference Range Interpretation Comments Carbon Dioxide Level (test code = 2028-9) 26 22-29 [facility] TylerAnion Qjw1473-41-78 07:16:00* Test Item Value Reference Range Interpretation Comments Anion Gap (test code = 22290-1) 16.0 8-16 [facility] TylerBlood Urea Lnalqorr9926-48-81 07:16:00* Test Item Value Reference Range Interpretation Comments Blood Urea Nitrogen (test code = 3094-0) 27 7-26 H [facility] TylerCreatinine2018-08-26 07:16:00* Test Item Value Reference Range Interpretation Comments Creatinine (test code = 2160-0) 0.87 0.57-1.11 [facility] TylerBUN/Creatinine Fpnkv9507-61-93 07:16:00* Test Item Value Reference Range Interpretation Comments BUN/Creatinine Ratio (test code = 3097-3) 31 6-25 H [facility] TylerEstimat Glomerular Filtration Rate 2018-05-14 07:16:00* Test Item Value Reference Range Interpretation Comments Estimat Glomerular Filtration Rate (test code = 32865-8) 60- >60 Ranges were taken from the National Kidney Disease Education Program and the [facility] Foundation literature.Reference ranges:60 or greater: Hbzbwi41-66 ( for 3 consecutive months): Chronic kidney disease 15 or less: Kidney failureCHRISTUS [facility] – TylerGlucose Bhkrh5915-25-26 07:16:00* Test Item Value Reference Range Interpretation Comments Glucose Level (test code = BIX8673) 111 74-118 [facility] TylerCalcium Zdcci2490-56-17 07:16:00* Test Item Value Reference Range Interpretation Comments Calcium Level (test code = 69170-9) 10.8 8.4-10.2 H [facility] TylerTotal Lhfmclrmh7409-21-55 07:16:00* Test Item Value Reference Range Interpretation Comments Total Bilirubin (test code = 1975-2) 0.3 0.2-1.2 [facility] TylerAspartate Amino Transf (AST/SGOT) 2018-05-14 07:16:00* Test Item Value Reference Range Interpretation Comments Aspartate Amino Transf (AST/SGOT) (test code = Aspartate Amino Transf (AST/SGOT)) 28 5-34 [facility] TylerAlanine Aminotransferase (ALT/SGPT) 2018-05-14 07:16:00* Test Item Value Reference Range Interpretation Comments Alanine Aminotransferase (ALT/SGPT) (test code = 1742-6) 43 0-55 [facility] TylerTotal Iceiixh6178-28-25 07:16:00* Test Item Value Reference Range Interpretation Comments Total Protein (test code = 2885-2) 7.6 6.5-8.1 [facility] TylerAlbumin2018-08-26 07:16:00* Test Item Value Reference Range Interpretation Comments Albumin (test code = 1751-7) 3.7 3.5-5.0 [facility] TylerGlobulin2018-08-26 07:16:00* Test Item Value Reference Range Interpretation Comments Globulin (test code = 41089-7) 3.9 2.3-3.5 H [facility] TylerAlbumin/Globulin Kyqaf2258-59-45 07:16:00 * Test Item Value Reference Range Interpretation Comments Albumin/Globulin Ratio (test code = 1759-0) 0.9 0.8-2.0 [facility] TylerAlkaline Zhyygeaqtwg9241-11-13 07:16:00* Test Item Value Reference Range Interpretation Comments Alkaline Phosphatase (test code = 6768-6) 103 40-150 [facility] TylerProthrombin Ppml5888-50-57 07:03:00* Test Item Value Reference Range Interpretation Comments Prothrombin Time (test code = 5902-2) 13.3 11.9-14.5 [facility] TylerProthromb Time International Ratio 2018-05-14 07:03:00* Test Item Value Reference Range Interpretation Comments Prothromb Time International Ratio (test code = 6301-6) 1.09 Oral Anticoagulant Therapy INR Values:1. Low Intensity Therapy 1.5 - 2.02 . Moderate Intensity Therapy 2.0 - 3.03. High Intensity Therapy(1) 2.5 - 3. 54. High Intensity Therapy(2) 3.0 - 4.05. Panic Value INR > 5.0 [facility] TylerActivated Partial Thromboplast Time 2018-05-14 07:03:00* Test Item Value Reference Range Interpretation Comments Activated Partial Thromboplast Time (test code = 42952-6) 27.3 23.8-35.5 [facility] TylerProthrombin Aagw7552-37-86 07:03:00* Test Item Value Reference Range Interpretation Comments Prothrombin Time (test code = 5902-2) 13.3 11.9-14.5 [facility] TylerProthromb Time International Ratio 2018-05-14 07:03:00* Test Item Value Reference Range Interpretation Comments Prothromb Time International Ratio (test code = 6301-6) 1.09 Oral Anticoagulant Therapy INR Values:1. Low Intensity Therapy 1.5 - 2.02 . Moderate Intensity Therapy 2.0 - 3.03. High Intensity Therapy(1) 2.5 - 3. 54. High Intensity Therapy(2) 3.0 - 4.05. Panic Value INR > 5.0 [facility] TylerActivated Partial Thromboplast Time 2018-05-14 07:03:00* Test Item Value Reference Range Interpretation Comments Activated Partial Thromboplast Time (test code = 92184-6) 27.3 23.8-35.5 [facility] TylerProthrombin Ywtv5267-33-77 07:03:00* Test Item Value Reference Range Interpretation Comments Prothrombin Time (test code = 5902-2) 13.3 11.9-14.5 [facility] TylerProthromb Time International Ratio 2018-05-14 07:03:00* Test Item Value Reference Range Interpretation Comments Prothromb Time International Ratio (test code = 6301-6) 1.09 Oral Anticoagulant Therapy INR Values:1. Low Intensity Therapy 1.5 - 2.02 . Moderate Intensity Therapy 2.0 - 3.03. High Intensity Therapy(1) 2.5 - 3. 54. High Intensity Therapy(2) 3.0 - 4.05. Panic Value INR > 5.0 [facility] TylerActivated Partial Thromboplast Time 2018-05-14 07:03:00* Test Item Value Reference Range Interpretation Comments Activated Partial Thromboplast Time (test code = 38714-2) 27.3 23.8-35.5 [facility] TylerProthrombin Oqei5153-45-29 07:03:00* Test Item Value Reference Range Interpretation Comments Prothrombin Time (test code = 5902-2) 13.3 11.9-14.5 [facility] TylerProthromb Time International Ratio 2018-05-14 07:03:00* Test Item Value Reference Range Interpretation Comments Prothromb Time International Ratio (test code = 6301-6) 1.09 Oral Anticoagulant Therapy INR Values:1. Low Intensity Therapy 1.5 - 2.02 . Moderate Intensity Therapy 2.0 - 3.03. High Intensity Therapy(1) 2.5 - 3. 54. High Intensity Therapy(2) 3.0 - 4.05. Panic Value INR > 5.0 [facility] TylerActivated Partial Thromboplast Time 2018-05-14 07:03:00* Test Item Value Reference Range Interpretation Comments Activated Partial Thromboplast Time (test code = 17744-2) 27.3 23.8-35.5 [facility] TylerProthrombin Dwbq1640-82-78 07:03:00* Test Item Value Reference Range Interpretation Comments Prothrombin Time (test code = 5902-2) 13.3 11.9-14.5 [facility] TylerProthromb Time International Ratio 2018-05-14 07:03:00* Test Item Value Reference Range Interpretation Comments Prothromb Time International Ratio (test code = 6301-6) 1.09 Oral Anticoagulant Therapy INR Values:1. Low Intensity Therapy 1.5 - 2.02 . Moderate Intensity Therapy 2.0 - 3.03. High Intensity Therapy(1) 2.5 - 3. 54. High Intensity Therapy(2) 3.0 - 4.05. Panic Value INR > 5.0 [facility] TylerActivated Partial Thromboplast Time 2018-05-14 07:03:00* Test Item Value Reference Range Interpretation Comments Activated Partial Thromboplast Time (test code = 68245-1) 27.3 23.8-35.5 [facility] TylerProthrombin Wqxf8533-61-51 07:03:00* Test Item Value Reference Range Interpretation Comments Prothrombin Time (test code = 5902-2) 13.3 11.9-14.5 [facility] TylerProthromb Time International Ratio 2018-05-14 07:03:00* Test Item Value Reference Range Interpretation Comments Prothromb Time International Ratio (test code = 6301-6) 1.09 Oral Anticoagulant Therapy INR Values:1. Low Intensity Therapy 1.5 - 2.02 . Moderate Intensity Therapy 2.0 - 3.03. High Intensity Therapy(1) 2.5 - 3. 54. High Intensity Therapy(2) 3.0 - 4.05. Panic Value INR > 5.0 [facility] TylerActivated Partial Thromboplast Time 2018-05-14 07:03:00* Test Item Value Reference Range Interpretation Comments Activated Partial Thromboplast Time (test code = 61059-0) 27.3 23.8-35.5 [facility] TylerWhite Blood Aafii3503-16-90 06:55:00* Test Item Value Reference Range Interpretation Comments White Blood Count (test code = 6690-2) 7.05 4.8-10.8 [facility] TylerRed Blood Mquga8140-08-12 06:55:00* Test Item Value Reference Range Interpretation Comments Red Blood Count (test code = 789-8) 4.56 3.6-5.1 [facility] TylerHemoglobin2018-08-26 06:55:00* Test Item Value Reference Range Interpretation Comments Hemoglobin (test code = 19456-1) 12.7 12.0-16.0 [facility] TylerHematocrit2018-08-26 06:55:00* Test Item Value Reference Range Interpretation Comments Hematocrit (test code = 4544-3) 40.4 34.2-44.1 [facility] TylerMean Corpuscular Gjdawo9402-52-59 06:55:00* Test Item Value Reference Range Interpretation Comments Mean Corpuscular Volume (test code = 787-2) 88.6 81-99 [facility] TylerMean Corpuscular Gjnvsexsuz2579-42-14 06:55:00* Test Item Value Reference Range Interpretation Comments Mean Corpuscular Hemoglobin (test code = 785-6) 27.9 28-32 L [facility] TylerMean Corpuscular Hemoglobin Concent 2018-05-14 06:55:00* Test Item Value Reference Range Interpretation Comments Mean Corpuscular Hemoglobin Concent (test code = 786-4) 31.4 31-35 [facility] TylerRed Cell Distribution Igayb2994-41-34 06:55:00* Test Item Value Reference Range Interpretation Comments Red Cell Distribution Width (test code = 35501-8) 13.8 11.7 -14.4 [facility] TylerPlatelet Ghdqw6419-36-21 06:55:00* Test Item Value Reference Range Interpretation Comments Platelet Count (test code = 777-3) 57 140-360 L [facility] TylerNeutrophils (%) (Auto)2018-05-14 06:55:00 * Test Item Value Reference Range Interpretation Comments Neutrophils (%) (Auto) (test code = 28941-5) 66.7 38.7-80.0 [facility] TylerLymphocytes (%) (Auto)2018-05-14 06:55:00 * Test Item Value Reference Range Interpretation Comments Lymphocytes (%) (Auto) (test code = 736-9) 19.6 18.0-39.1 [facility] TylerMonocytes (%) (Auto)2018-05-14 06:55:00* Test Item Value Reference Range Interpretation Comments Monocytes (%) (Auto) (test code = 5905-5) 7.7 4.4-11.3 [facility] TylerEosinophils (%) (Auto)2018-05-14 06:55:00 * Test Item Value Reference Range Interpretation Comments Eosinophils (%) (Auto) (test code = 713-8) 5.2 0.0-6.0 [facility] TylerBasophils (%) (Auto)2018-05-14 06:55:00* Test Item Value Reference Range Interpretation Comments Basophils (%) (Auto) (test code = 706-2) 0.4 0.0-1.0 [facility] TylerIM GRANULOCYTES %2018-05-14 06:55:00* Test Item Value Reference Range Interpretation Comments IM GRANULOCYTES % (test code = IM GRANULOCYTES %) 0.4 0.0- 1.0 [facility] TylerNeutrophils # (Auto)2018-05-14 06:55:00* Test Item Value Reference Range Interpretation Comments Neutrophils # (Auto) (test code = 751-8) 4.7 2.1-6.9 [facility] TylerLymphocytes # (Auto)2018-05-14 06:55:00* Test Item Value Reference Range Interpretation Comments Lymphocytes # (Auto) (test code = 88651-6) 1.4 1.0-3.2 [facility] TylerMonocytes # (Auto)2018-05-14 06:55:00* Test Item Value Reference Range Interpretation Comments Monocytes # (Auto) (test code = 742-7) 0.5 0.2-0.8 [facility] TylerEosinophils # (Auto)2018-05-14 06:55:00* Test Item Value Reference Range Interpretation Comments Eosinophils # (Auto) (test code = 711-2) 0.4 0.0-0.4 [facility] TylerBasophils # (Auto)2018-05-14 06:55:00* Test Item Value Reference Range Interpretation Comments Basophils # (Auto) (test code = 704-7) 0.0 0.0-0.1 [facility] TylerAbsolute Immature Granulocyte (auto 2018-05-14 06:55:00* Test Item Value Reference Range Interpretation Comments Absolute Immature Granulocyte (auto (melina t code = Absolute Immature Granulocyte (auto) 0.03 0-0.1 [facility] TylerCHEST SINGLE (PORTABLE)2018-05-14 06:49:00 [place] [address] Patient Name: MOJGAN CUMMINGS MR #: [id number] : 1950 Age/Sex: 68/F Req #: [id number] Adm Physician: Ordered by: PHOENIX CIFUENTES MD Report #: [id number] Location: ER Room/Bed: Procedure: [id number] DX/CHEST SINGLE (PORTABL E) Exam Date: 05/14/18 Exam Time: 634 REPORT STATUS: Signed CHEST SINGLE (PORTABLE), 05/14/2018 6:17 AM Technique: ELMA ST SINGLE (PORTABLE) Comparison: 7. Clinical history: [...] on 05/14/18650 COPY TO: PHOENIX CIFUENTES MD Bedside Iixnadl1252-79-18 12:17:00* Test Item Value Reference Range Interpretation Comments Bedside Glucose (test code = 35963-9) 131 70-120 H Meter ID: [id number] Surgical Hospital of El PasoBedside Glucose 2018-04-17 12:17:00* Test Item Value Reference Range Interpretation Comments Bedside Glucose (test code = 57397-7) 131 70-120 H Meter ID: [id number] County Memorial Hospitalodium Level 2018-04-17 06:13:00* Test Item Value Reference Range Interpretation Comments Sodium Level (test code = 2951-2) 137 136-145 [facility] TylerPotassium Hggbh6132-96-15 06:13:00* Test Item Value Reference Range Interpretation Comments Potassium Level (test code = 2823-3) 3.7 3.5-5.1 [facility] TylerChloride Zbnaa6989-78-22 06:13:00* Test Item Value Reference Range Interpretation Comments Chloride Level (test code = 2075-0) 97 98-107 L [facility] TylerCarbon Dioxide Dvwos0688-39-75 06:13:00* Test Item Value Reference Range Interpretation Comments Carbon Dioxide Level (test code = 2028-9) 29 22-29 [facility] TylerAnion Pyf1656-08-05 06:13:00* Test Item Value Reference Range Interpretation Comments Anion Gap (test code = 31609-0) 14.7 8-16 [facility] TylerBlood Urea Fecbqcbh7295-62-23 06:13:00* Test Item Value Reference Range Interpretation Comments Blood Urea Nitrogen (test code = 3094-0) 27 7-26 H [facility] TylerCreatinine2018-07-30 06:13:00* Test Item Value Reference Range Interpretation Comments Creatinine (test code = 2160-0) 0.84 0.57-1.11 [facility] TylerBUN/Creatinine Uwjxr1011-01-32 06:13:00* Test Item Value Reference Range Interpretation Comments BUN/Creatinine Ratio (test code = 3097-3) 32 6-25 H [facility] TylerEstimat Glomerular Filtration Rate 2018-04-17 06:13:00* Test Item Value Reference Range Interpretation Comments Estimat Glomerular Filtration Rate (test code = 44249-4) 60- >60 Ranges were taken from the National Kidney Disease Education Program and the [facility] literature.Reference ranges:60 or greater: Sgsoaz62-98 ( for 3 consecutive months): Chronic kidney disease 15 or less: Kidney failureCHRISTUS Mother Frances Hospital – TylerGlucose Ocoad8121-95-12 06:13:00* Test Item Value Reference Range Interpretation Comments Glucose Level (test code = DWD9818) 113 74-118 [facility] TylerCalcium Hpijl7963-20-09 06:13:00* Test Item Value Reference Range Interpretation Comments Calcium Level (test code = 07996-3) 10.4 8.4-10.2 H [facility] TylerMagnesium Ossov4977-50-56 06:13:00* Test Item Value Reference Range Interpretation Comments Magnesium Level (test code = 58557-1) 1.7 1.3-2.1 [facility] TylerMaesium Axsqp9621-40-51 06:13:00* Test Item Value Reference Range Interpretation Comments Magnesium Level (test code = 81380-3) 1.7 1.3-2.1 [facility] TylerWhite Blood Ssdde1376-27-33 05:52:00* Test Item Value Reference Range Interpretation Comments White Blood Count (test code = 6690-2) 8.02 4.8-10.8 [facility] TylerRed Blood Evnlk2937-68-94 05:52:00* Test Item Value Reference Range Interpretation Comments Red Blood Count (test code = 789-8) 4.05 3.6-5.1 [facility] TylerHemoglobin2018-07-30 05:52:00* Test Item Value Reference Range Interpretation Comments Hemoglobin (test code = 43813-3) 11.7 12.0-16.0 L [facility] TylerHematocrit2018-07-30 05:52:00* Test Item Value Reference Range Interpretation Comments Hematocrit (test code = 4544-3) 35.7 34.2-44.1 [facility] TylerMean Corpuscular Frwjct3370-56-90 05:52:00* Test Item Value Reference Range Interpretation Comments Mean Corpuscular Volume (test code = 787-2) 88.1 81-99 [facility] TylerMean Corpuscular Waymehnesm9057-05-19 05:52:00* Test Item Value Reference Range Interpretation Comments Mean Corpuscular Hemoglobin (test code = 785-6) 28.9 28-32 [facility] Corpuscular Hemoglobin Concent 2018-04-17 05:52:00* Test Item Value Reference Range Interpretation Comments Mean Corpuscular Hemoglobin Concent (test code = 786-4) 32.8 31-35 [facility] TylerRed Cell Distribution Faowo7106-98-57 05:52:00* Test Item Value Reference Range Interpretation Comments Red Cell Distribution Width (test code = 24498-2) 14.2 11.7 -14.4 [facility] TylerPlatelet Hwrmn6668-37-90 05:52:00* Test Item Value Reference Range Interpretation Comments Platelet Count (test code = 777-3) 53 140-360 L [facility] TylerNeutrophils (%) (Auto)2018-04-17 05:52:00 * Test Item Value Reference Range Interpretation Comments Neutrophils (%) (Auto) (test code = 89765-1) 67.9 38.7-80.0 [facility] TylerLymphocytes (%) (Auto)2018-04-17 05:52:00 * Test Item Value Reference Range Interpretation Comments Lymphocytes (%) (Auto) (test code = 736-9) 17.3 18.0-39.1 L [facility] TylerMonocytes (%) (Auto)2018-04-17 05:52:00* Test Item Value Reference Range Interpretation Comments Monocytes (%) (Auto) (test code = 5905-5) 9.0 4.4-11.3 [facility] TylerEosinophils (%) (Auto)2018-04-17 05:52:00 * Test Item Value Reference Range Interpretation Comments Eosinophils (%) (Auto) (test code = 713-8) 5.2 0.0-6.0 [facility] TylerBasophils (%) (Auto)2018-04-17 05:52:00* Test Item Value Reference Range Interpretation Comments Basophils (%) (Auto) (test code = 706-2) 0.2 0.0-1.0 [facility] TylerIM GRANULOCYTES %2018-04-17 05:52:00* Test Item Value Reference Range Interpretation Comments IM GRANULOCYTES % (test code = IM GRANULOCYTES %) 0.4 0.0- 1.0 [facility] TylerNeutrophils # (Auto)2018-04-17 05:52:00* Test Item Value Reference Range Interpretation Comments Neutrophils # (Auto) (test code = 751-8) 5.4 2.1-6.9 [facility] TylerLymphocytes # (Auto)2018-04-17 05:52:00* Test Item Value Reference Range Interpretation Comments Lymphocytes # (Auto) (test code = 27379-9) 1.4 1.0-3.2 [facility] TylerMonocytes # (Auto)2018-04-17 05:52:00* Test Item Value Reference Range Interpretation Comments Monocytes # (Auto) (test code = 742-7) 0.7 0.2-0.8 [facility] TylerEosinophils # (Auto)2018-04-17 05:52:00* Test Item Value Reference Range Interpretation Comments Eosinophils # (Auto) (test code = 711-2) 0.4 0.0-0.4 [facility] TylerBasophils # (Auto)2018-04-17 05:52:00* Test Item Value Reference Range Interpretation Comments Basophils # (Auto) (test code = 704-7) 0.0 0.0-0.1 [facility] TylerAbsolute Immature Granulocyte (auto 2018-04-17 05:52:00* Test Item Value Reference Range Interpretation Comments Absolute Immature Granulocyte (auto (melina t code = Absolute Immature Granulocyte (auto) 0.03 0-0.1 [facility] TylerB-Type Natriuretic Aryycqh2722-59-17 06:03:00* Test Item Value Reference Range Interpretation Comments B-Type Natriuretic Peptide (test code = 28198-3) 37.3 0-100 [facility] TylerB-Type Natriuretic Wpiwniq1997-70-44 06:03:00* Test Item Value Reference Range Interpretation Comments B-Type Natriuretic Peptide (test code = 82068-8) 37.3 0-100 [facility] TylerClumped Zemwxgbfh9364-49-92 02:35:00* Test Item Value Reference Range Interpretation Comments Clumped Platelets (test code = 7796-6) NONE NONE [facility] TylerClumped Zvvuwdkkh4933-54-57 02:35:00* Test Item Value Reference Range Interpretation Comments Clumped Platelets (test code = 7796-6) NONE NONE [facility] TylerClumped Hjkbywyqa5760-63-05 02:35:00* Test Item Value Reference Range Interpretation Comments Clumped Platelets (test code = 7796-6) NONE NONE [facility] TylerClumped Guhkrgmxd6203-16-13 02:35:00* Test Item Value Reference Range Interpretation Comments Clumped Platelets (test code = 7796-6) NONE NONE [facility] TylerClumped Auryffsqr7580-07-70 02:35:00* Test Item Value Reference Range Interpretation Comments Clumped Platelets (test code = 7796-6) NONE NONE [facility] TylerClumped Wnxrzekzi4514-37-86 02:35:00* Test Item Value Reference Range Interpretation Comments Clumped Platelets (test code = 7796-6) NONE NONE [facility] TylerClumped Wvpjinlhl7148-37-83 02:35:00* Test Item Value Reference Range Interpretation Comments Clumped Platelets (test code = 7796-6) NONE NONE [facility] TylerPlatelet Jjmdlquj2914-50-70 02:34:00* Test Item Value Reference Range Interpretation Comments Platelet Estimate (test code = 02518-5) MARKEDLY DECREASED [facility] TylerPlatelet Morphology Hkiebww8341-64-41 02:34:00* Test Item Value Reference Range Interpretation Comments Platelet Morphology Comment (test code = 32015-8) FEW LARGE [facility] TylerRed Cell Morphology Xgyofmr7531-40-34 02:34:00* Test Item Value Reference Range Interpretation Comments Red Cell Morphology Comment (test code = 6742-1) NORMAL [facility] TylerPlatelet Jiduaavb3422-46-80 02:34:00* Test Item Value Reference Range Interpretation Comments Platelet Estimate (test code = 67262-7) MARKEDLY DECREASED [facility] TylerPlatelet Morphology Fqlrces1533-42-07 02:34:00* Test Item Value Reference Range Interpretation Comments Platelet Morphology Comment (test code = 14788-8) FEW LARGE [facility] TylerRed Cell Morphology Tbnicdr1531-64-21 02:34:00* Test Item Value Reference Range Interpretation Comments Red Cell Morphology Comment (test code = 6742-1) NORMAL [facility] TylerProthrombin Cdgh2065-96-78 02:17:00* Test Item Value Reference Range Interpretation Comments Prothrombin Time (test code = 5902-2) 12.8 11.9-14.5 [facility] TylerProthromb Time International Ratio 2018-04-11 02:17:00* Test Item Value Reference Range Interpretation Comments Prothromb Time International Ratio (test code = 6301-6) 1.04 Oral Anticoagulant Therapy INR Values:1. Low Intensity Therapy 1.5 - 2.02 . Moderate Intensity Therapy 2.0 - 3.03. High Intensity Therapy(1) 2.5 - 3. 54. High Intensity Therapy(2) 3.0 - 4.05. Panic Value INR > 5.0 [facility] TylerActivated Partial Thromboplast Time 2018-04-11 02:17:00* Test Item Value Reference Range Interpretation Comments Activated Partial Thromboplast Time (test code = 18724-1) 24.7 23.8-35.5 [facility] TylerCHEST SINGLE (PORTABLE)2018-04-11 02:11:00 [place] [address] Patient Name: MOJGAN CUMMINGS MR #: [id number] : 1950 Age/Sex: 68/F Req #: [id number] Adm Physician: Ordered by: SHABBIR MÉNDEZ MD Report #: [id number] Location: ER Room/Bed: Procedure: [id number] DX/CHEST SINGLE (PORTABLE) Exa m Date: 04/11/18 Exam Time: 0147 REPORT STATUS: Signed EXAM: CHEST SINGLE (PORTABLE), [...] on 04/11/18211 COPY TO: SHABBIR MÉNDEZ MD Bedside Ujcxhpp9493-54-84 18:17:00* Test Item Value Reference Range Interpretation Comments Bedside Glucose (test code = 79554-4) 120 70-120 Meter ID: [id number] [facility] TylerBedside Glucose 2018-03-26 18:17:00* Test Item Value Reference Range Interpretation Comments Bedside Glucose (test code = 67590-7) 120 70-120 Meter ID: [id number] Scott & White [facility] – College Stationodium Level 2018-03-26 05:15:00* Test Item Value Reference Range Interpretation Comments Sodium Level (test code = 2951-2) 136 136-145 [facility] TylerPotassium Gxhal1364-09-16 05:15:00* Test Item Value Reference Range Interpretation Comments Potassium Level (test code = 2823-3) 3.6 3.5-5.1 [facility] TylerChloride Jbkra1010-35-85 05:15:00* Test Item Value Reference Range Interpretation Comments Chloride Level (test code = 2075-0) 96 98-107 L [facility] TylerCarbon Dioxide Lzgsi1168-85-56 05:15:00* Test Item Value Reference Range Interpretation Comments Carbon Dioxide Level (test code = 2028-9) 30 22-29 H [facility] TylerAnion Pje6247-37-14 05:15:00* Test Item Value Reference Range Interpretation Comments Anion Gap (test code = 84229-6) 13.6 8-16 [facility] TylerBlood Urea Rokvprkw7825-36-15 05:15:00* Test Item Value Reference Range Interpretation Comments Blood Urea Nitrogen (test code = 3094-0) 25 7-26 [facility] TylerCreatinine2018-07-08 05:15:00* Test Item Value Reference Range Interpretation Comments Creatinine (test code = 2160-0) 0.87 0.57-1.11 [facility] TylerBUN/Creatinine Utjqg8310-46-97 05:15:00* Test Item Value Reference Range Interpretation Comments BUN/Creatinine Ratio (test code = 3097-3) 29 6-25 H [facility] TylerEstimat Glomerular Filtration Rate 2018-03-26 05:15:00* Test Item Value Reference Range Interpretation Comments Estimat Glomerular Filtration Rate (test code = 61610-6) 60- >60 Ranges were taken from the National Kidney Disease Education Program and the [facility] literature.Reference ranges:60 or greater: Hzcgeg20-54 ( for 3 consecutive months): Chronic kidney disease 15 or less: Kidney failureCHRISTUS Mother Frances Hospital – TylerGlucose Cuvtf4182-83-60 05:15:00* Test Item Value Reference Range Interpretation Comments Glucose Level (test code = ISR9057) 136 74-118 H [facility] TylerCalcium Dknlh0123-14-25 05:15:00* Test Item Value Reference Range Interpretation Comments Calcium Level (test code = 51343-7) 10.6 8.4-10.2 H [facility] TylerTotal Kdfkxiexb1027-21-39 05:15:00* Test Item Value Reference Range Interpretation Comments Total Bilirubin (test code = 1975-2) 0.5 0.2-1.2 [facility] TylerAspartate Amino Transf (AST/SGOT) 2018-03-26 05:15:00* Test Item Value Reference Range Interpretation Comments Aspartate Amino Transf (AST/SGOT) (test code = Aspartate Amino Transf (AST/SGOT)) 17 5-34 [facility] TylerAlanine Aminotransferase (ALT/SGPT) 2018-03-26 05:15:00* Test Item Value Reference Range Interpretation Comments Alanine Aminotransferase (ALT/SGPT) (test code = 1742-6) 14 0-55 [facility] TylerTotal Cbzmlci2139-10-91 05:15:00* Test Item Value Reference Range Interpretation Comments Total Protein (test code = 2885-2) 6.6 6.5-8.1 [facility] TylerAlbumin2018-07-08 05:15:00* Test Item Value Reference Range Interpretation Comments Albumin (test code = 1751-7) 3.1 3.5-5.0 L [facility] TylerGlobulin2018-07-08 05:15:00* Test Item Value Reference Range Interpretation Comments Globulin (test code = 23657-7) 3.5 2.3-3.5 [facility] TylerAlbumin/Globulin Lswab6312-02-04 05:15:00 * Test Item Value Reference Range Interpretation Comments Albumin/Globulin Ratio (test code = 1759-0) 0.9 0.8-2.0 [facility] TylerAlkaline Lvmiuaylept8015-47-39 05:15:00* Test Item Value Reference Range Interpretation Comments Alkaline Phosphatase (test code = 6768-6) 77 40-150 [facility] Stationodium Kyzty2796-91-02 05:15:00* Test Item Value Reference Range Interpretation Comments Sodium Level (test code = 2951-2) 136 136-145 [facility] TylerPotassium Rvhor3443-67-75 05:15:00* Test Item Value Reference Range Interpretation Comments Potassium Level (test code = 2823-3) 3.6 3.5-5.1 [facility] TylerChloride Edyze8317-35-80 05:15:00* Test Item Value Reference Range Interpretation Comments Chloride Level (test code = 2075-0) 96 98-107 L [facility] TylerCarbon Dioxide Nefek4416-66-92 05:15:00* Test Item Value Reference Range Interpretation Comments Carbon Dioxide Level (test code = 2028-9) 30 22-29 H [facility] TylerAnion Lnw5173-34-06 05:15:00* Test Item Value Reference Range Interpretation Comments Anion Gap (test code = 50559-3) 13.6 8-16 [facility] TylerBlood Urea Taprhvzn8739-67-85 05:15:00* Test Item Value Reference Range Interpretation Comments Blood Urea Nitrogen (test code = 3094-0) 25 7-26 [facility] TylerCreatinine2018-07-08 05:15:00* Test Item Value Reference Range Interpretation Comments Creatinine (test code = 2160-0) 0.87 0.57-1.11 [facility] TylerBUN/Creatinine Uprlq1021-27-78 05:15:00* Test Item Value Reference Range Interpretation Comments BUN/Creatinine Ratio (test code = 3097-3) 29 6-25 H [facility] TylerEstimat Glomerular Filtration Rate 2018-03-26 05:15:00* Test Item Value Reference Range Interpretation Comments Estimat Glomerular Filtration Rate (test code = 21911-2) 60- >60 Ranges were taken from the National Kidney Disease Education Program and the [facility] Foundation literature.Reference ranges:60 or greater: Dvvewl47-78 ( for 3 consecutive months): Chronic kidney disease 15 or less: Kidney failureCHRISTUS Mother Frances Hospital – TylerGlucose Dksuy9379-83-80 05:15:00* Test Item Value Reference Range Interpretation Comments Glucose Level (test code = IVI6950) 136 74-118 H [facility] TylerCalcium Jnvkb5647-95-58 05:15:00* Test Item Value Reference Range Interpretation Comments Calcium Level (test code = 04402-9) 10.6 8.4-10.2 H [facility] TylerTotal Gvjfgdvza2201-00-24 05:15:00* Test Item Value Reference Range Interpretation Comments Total Bilirubin (test code = 1975-2) 0.5 0.2-1.2 [facility] TylerAspartate Amino Transf (AST/SGOT) 2018-03-26 05:15:00* Test Item Value Reference Range Interpretation Comments Aspartate Amino Transf (AST/SGOT) (test code = Aspartate Amino Transf (AST/SGOT)) 17 5-34 [facility] TylerAlanine Aminotransferase (ALT/SGPT) 2018-03-26 05:15:00* Test Item Value Reference Range Interpretation Comments Alanine Aminotransferase (ALT/SGPT) (test code = 1742-6) 14 0-55 [facility] TylerTotal Updpaju3802-79-27 05:15:00* Test Item Value Reference Range Interpretation Comments Total Protein (test code = 2885-2) 6.6 6.5-8.1 [facility] TylerAlbumin2018-07-08 05:15:00* Test Item Value Reference Range Interpretation Comments Albumin (test code = 1751-7) 3.1 3.5-5.0 L [facility] TylerGlobulin2018-07-08 05:15:00* Test Item Value Reference Range Interpretation Comments Globulin (test code = 47424-6) 3.5 2.3-3.5 [facility] TylerAlbumin/Globulin Sklkc5326-16-50 05:15:00 * Test Item Value Reference Range Interpretation Comments Albumin/Globulin Ratio (test code = 1759-0) 0.9 0.8-2.0 [facility] TylerAlkaline Xpdtoxoajhx4673-08-01 05:15:00* Test Item Value Reference Range Interpretation Comments Alkaline Phosphatase (test code = 6768-6) 77 40-150 [facility] TylerTotal Mthkxhpns7007-53-10 05:15:00* Test Item Value Reference Range Interpretation Comments Total Bilirubin (test code = 1975-2) 0.5 0.2-1.2 [facility] TylerAspartate Amino Transf (AST/SGOT) 2018-03-26 05:15:00* Test Item Value Reference Range Interpretation Comments Aspartate Amino Transf (AST/SGOT) (test code = Aspartate Amino Transf (AST/SGOT)) 17 5-34 [facility] TylerAlanine Aminotransferase (ALT/SGPT) 2018-03-26 05:15:00* Test Item Value Reference Range Interpretation Comments Alanine Aminotransferase (ALT/SGPT) (test code = 1742-6) 14 0-55 [facility] [place]7732-32-76 05:15:00* Test Item Value Reference Range Interpretation Comments Total Protein (test code = 2885-2) 6.6 6.5-8.1 [facility] TylerAlbumin2018-07-08 05:15:00* Test Item Value Reference Range Interpretation Comments Albumin (test code = 1751-7) 3.1 3.5-5.0 L [facility] TylerGlobulin2018-07-08 05:15:00* Test Item Value Reference Range Interpretation Comments Globulin (test code = 48797-4) 3.5 2.3-3.5 [facility] TylerAlbumin/Globulin Manow6131-24-81 05:15:00 * Test Item Value Reference Range Interpretation Comments Albumin/Globulin Ratio (test code = 1759-0) 0.9 0.8-2.0 [facility] TylerAlkaline Pmeaqybwqcm2637-97-79 05:15:00* Test Item Value Reference Range Interpretation Comments Alkaline Phosphatase (test code = 6768-6) 77 40-150 [facility] TylerWhite Blood Qqdqa8623-72-82 04:55:00* Test Item Value Reference Range Interpretation Comments White Blood Count (test code = 6690-2) 9.18 4.8-10.8 [facility] TylerRed Blood Fmgmc8402-42-88 04:55:00* Test Item Value Reference Range Interpretation Comments Red Blood Count (test code = 789-8) 3.66 3.6-5.1 [facility] TylerHemoglobin2018-07-08 04:55:00* Test Item Value Reference Range Interpretation Comments Hemoglobin (test code = 26846-2) 10.3 12.0-16.0 L [facility] TylerHematocrit2018-07-08 04:55:00* Test Item Value Reference Range Interpretation Comments Hematocrit (test code = 4544-3) 33.1 34.2-44.1 L [facility] TylerMean Corpuscular Sqpnuk5785-56-25 04:55:00* Test Item Value Reference Range Interpretation Comments Mean Corpuscular Volume (test code = 787-2) 90.4 81-99 [facility] TylerMean Corpuscular Ssknvprwca8456-61-81 04:55:00* Test Item Value Reference Range Interpretation Comments Mean Corpuscular Hemoglobin (test code = 785-6) 28.1 28-32 [facility] TylerMean Corpuscular Hemoglobin Concent 2018-03-26 04:55:00* Test Item Value Reference Range Interpretation Comments Mean Corpuscular Hemoglobin Concent (test code = 786-4) 31.1 31-35 [facility] TylerRed Cell Distribution Qksxc9039-21-75 04:55:00* Test Item Value Reference Range Interpretation Comments Red Cell Distribution Width (test code = 91178-9) 16.3 11.7 -14.4 H [facility] TylerPlatelet Ywyrr6521-72-47 04:55:00* Test Item Value Reference Range Interpretation Comments Platelet Count (test code = 777-3) 61 140-360 L [facility] TylerNeutrophils (%) (Auto)2018-03-26 04:55:00 * Test Item Value Reference Range Interpretation Comments Neutrophils (%) (Auto) (test code = 95851-4) 62.8 38.7-80.0 [facility] TylerLymphocytes (%) (Auto)2018-03-26 04:55:00 * Test Item Value Reference Range Interpretation Comments Lymphocytes (%) (Auto) (test code = 736-9) 16.6 18.0-39.1 L [facility] TylerMonocytes (%) (Auto)2018-03-26 04:55:00* Test Item Value Reference Range Interpretation Comments Monocytes (%) (Auto) (test code = 5905-5) 11.5 4.4-11.3 H [facility] TylerEosinophils (%) (Auto)2018-03-26 04:55:00 * Test Item Value Reference Range Interpretation Comments Eosinophils (%) (Auto) (test code = 713-8) 8.3 0.0-6.0 H [facility] TylerBasophils (%) (Auto)2018-03-26 04:55:00* Test Item Value Reference Range Interpretation Comments Basophils (%) (Auto) (test code = 706-2) 0.4 0.0-1.0 [facility] TylerIM GRANULOCYTES %2018-03-26 04:55:00* Test Item Value Reference Range Interpretation Comments IM GRANULOCYTES % (test code = IM GRANULOCYTES %) 0.4 0.0- 1.0 [facility] TylerNeutrophils # (Auto)2018-03-26 04:55:00* Test Item Value Reference Range Interpretation Comments Neutrophils # (Auto) (test code = 751-8) 5.8 2.1-6.9 [facility] TylerLymphocytes # (Auto)2018-03-26 04:55:00* Test Item Value Reference Range Interpretation Comments Lymphocytes # (Auto) (test code = 75416-5) 1.5 1.0-3.2 [facility] TylerMonocytes # (Auto)2018-03-26 04:55:00* Test Item Value Reference Range Interpretation Comments Monocytes # (Auto) (test code = 742-7) 1.1 0.2-0.8 H [facility] TylerEosinophils # (Auto)2018-03-26 04:55:00* Test Item Value Reference Range Interpretation Comments Eosinophils # (Auto) (test code = 711-2) 0.8 0.0-0.4 H [facility] TylerBasophils # (Auto)2018-03-26 04:55:00* Test Item Value Reference Range Interpretation Comments Basophils # (Auto) (test code = 704-7) 0.0 0.0-0.1 [facility] TylerAbsolute Immature Granulocyte (auto 2018-03-26 04:55:00* Test Item Value Reference Range Interpretation Comments Absolute Immature Granulocyte (auto (melina t code = Absolute Immature Granulocyte (auto) 0.04 0-0.1 [facility] TylerWhite Blood Eltpz4349-46-03 04:55:00* Test Item Value Reference Range Interpretation Comments White Blood Count (test code = 6690-2) 9.18 4.8-10.8 [facility] TylerRed Blood Ninii3757-07-48 04:55:00* Test Item Value Reference Range Interpretation Comments Red Blood Count (test code = 789-8) 3.66 3.6-5.1 [facility] TylerHemoglobin2018-07-08 04:55:00* Test Item Value Reference Range Interpretation Comments Hemoglobin (test code = 85173-3) 10.3 12.0-16.0 L [facility] TylerHematocrit2018-07-08 04:55:00* Test Item Value Reference Range Interpretation Comments Hematocrit (test code = 4544-3) 33.1 34.2-44.1 L [facility] TylerMean Corpuscular Itklpo7341-70-30 04:55:00* Test Item Value Reference Range Interpretation Comments Mean Corpuscular Volume (test code = 787-2) 90.4 81-99 [facility] TylerMean Corpuscular Bibpxpsrkc6507-10-49 04:55:00* Test Item Value Reference Range Interpretation Comments Mean Corpuscular Hemoglobin (test code = 785-6) 28.1 28-32 [facility] TylerMean Corpuscular Hemoglobin Concent 2018-03-26 04:55:00* Test Item Value Reference Range Interpretation Comments Mean Corpuscular Hemoglobin Concent (test code = 786-4) 31.1 31-35 [facility] TylerRed Cell Distribution Mykrf0824-70-45 04:55:00* Test Item Value Reference Range Interpretation Comments Red Cell Distribution Width (test code = 24399-2) 16.3 11.7 -14.4 H [facility] TylerPlatelet Bttdm2526-31-79 04:55:00* Test Item Value Reference Range Interpretation Comments Platelet Count (test code = 777-3) 61 140-360 L [facility] TylerNeutrophils (%) (Auto)2018-03-26 04:55:00 * Test Item Value Reference Range Interpretation Comments Neutrophils (%) (Auto) (test code = 80343-0) 62.8 38.7-80.0 [facility] TylerLymphocytes (%) (Auto)2018-03-26 04:55:00 * Test Item Value Reference Range Interpretation Comments Lymphocytes (%) (Auto) (test code = 736-9) 16.6 18.0-39.1 L [facility] TylerMonocytes (%) (Auto)2018-03-26 04:55:00* Test Item Value Reference Range Interpretation Comments Monocytes (%) (Auto) (test code = 5905-5) 11.5 4.4-11.3 H [facility] TylerEosinophils (%) (Auto)2018-03-26 04:55:00 * Test Item Value Reference Range Interpretation Comments Eosinophils (%) (Auto) (test code = 713-8) 8.3 0.0-6.0 H [facility] TylerBasophils (%) (Auto)2018-03-26 04:55:00* Test Item Value Reference Range Interpretation Comments Basophils (%) (Auto) (test code = 706-2) 0.4 0.0-1.0 [facility] TylerIM GRANULOCYTES %2018-03-26 04:55:00* Test Item Value Reference Range Interpretation Comments IM GRANULOCYTES % (test code = IM GRANULOCYTES %) 0.4 0.0- 1.0 [facility] TylerNeutrophils # (Auto)2018-03-26 04:55:00* Test Item Value Reference Range Interpretation Comments Neutrophils # (Auto) (test code = 751-8) 5.8 2.1-6.9 [facility] TylerLymphocytes # (Auto)2018-03-26 04:55:00* Test Item Value Reference Range Interpretation Comments Lymphocytes # (Auto) (test code = 52354-6) 1.5 1.0-3.2 [facility] TylerMonocytes # (Auto)2018-03-26 04:55:00* Test Item Value Reference Range Interpretation Comments Monocytes # (Auto) (test code = 742-7) 1.1 0.2-0.8 H [facility] TylerEosinophils # (Auto)2018-03-26 04:55:00* Test Item Value Reference Range Interpretation Comments Eosinophils # (Auto) (test code = 711-2) 0.8 0.0-0.4 H [facility] TylerBasophils # (Auto)2018-03-26 04:55:00* Test Item Value Reference Range Interpretation Comments Basophils # (Auto) (test code = 704-7) 0.0 0.0-0.1 [facility] TylerAbsolute Immature Granulocyte (auto 2018-03-26 04:55:00* Test Item Value Reference Range Interpretation Comments Absolute Immature Granulocyte (auto (melina t code = Absolute Immature Granulocyte (auto) 0.04 0-0.1 [facility] TylerProthrombin Altn7435-92-67 23:03:00* Test Item Value Reference Range Interpretation Comments Prothrombin Time (test code = 5902-2) 13.1 11.9-14.5 [facility] TylerProthromb Time International Ratio 2018-03-25 23:03:00* Test Item Value Reference Range Interpretation Comments Prothromb Time International Ratio (test code = 6301-6) 1.07 Oral Anticoagulant Therapy INR Values:1. Low Intensity Therapy 1.5 - 2.02 . Moderate Intensity Therapy 2.0 - 3.03. High Intensity Therapy(1) 2.5 - 3. 54. High Intensity Therapy(2) 3.0 - 4.05. Panic Value INR > 5.0 [facility] TylerActivated Partial Thromboplast Time 2018-03-25 23:03:00* Test Item Value Reference Range Interpretation Comments Activated Partial Thromboplast Time (test code = 57480-5) 27.8 23.8-35.5 [facility] TylerProthrombin Cqck6599-21-01 23:03:00* Test Item Value Reference Range Interpretation Comments Prothrombin Time (test code = 5902-2) 13.1 11.9-14.5 [facility] TylerProthromb Time International Ratio 2018-03-25 23:03:00* Test Item Value Reference Range Interpretation Comments Prothromb Time International Ratio (test code = 6301-6) 1.07 Oral Anticoagulant Therapy INR Values:1. Low Intensity Therapy 1.5 - 2.02 . Moderate Intensity Therapy 2.0 - 3.03. High Intensity Therapy(1) 2.5 - 3. 54. High Intensity Therapy(2) 3.0 - 4.05. Panic Value INR > 5.0 [facility] TylerActivated Partial Thromboplast Time 2018-03-25 23:03:00* Test Item Value Reference Range Interpretation Comments Activated Partial Thromboplast Time (test code = 51698-5) 27.8 23.8-35.5 [facility] TylerCHEST SINGLE (PORTABLE)2018-03-25 22:55:00 [facility] [address] [address] Patient Name: MOJGAN CUMMINGS MR #: [id number] : 1950 Age/Sex: 68/F Req #: [id number] Adm Physician: Ordered by: PHOENIX CIFUENTES MD Report #: [id number] Location: ER Room/Bed: Procedure: [id number] DX/CHEST SINGLE (PORTABLE) Exam Date: 03/25/18 Exam Time: [address] ATUS: Signed EXAM: CHEST SINGLE [...] on 03/25/182255 COPY TO: PHOENIX CIFUENTES MD Bedside Xdfzgky1750-43-17 12:30:00* Test Item Value Reference Range Interpretation Comments Bedside Glucose (test code = 40148-2) 115 70-120 Meter ID: [id number] TylerWhite Blood Count 2018-03-09 06:39:00* Test Item Value Reference Range Interpretation Comments White Blood Count (test code = 6690-2) 10.42 4.8-10.8 [facility] TylerRed Blood Nbgwq3333-96-28 06:39:00* Test Item Value Reference Range Interpretation Comments Red Blood Count (test code = 789-8) 3.63 3.6-5.1 [facility] TylerHemoglobin2018-06-21 06:39:00* Test Item Value Reference Range Interpretation Comments Hemoglobin (test code = 90824-7) 10.0 12.0-16.0 L [facility] TylerHematocrit2018-06-21 06:39:00* Test Item Value Reference Range Interpretation Comments Hematocrit (test code = 4544-3) 31.5 34.2-44.1 L [facility] TylerMean Corpuscular Ivkmlw4524-46-88 06:39:00* Test Item Value Reference Range Interpretation Comments Mean Corpuscular Volume (test code = 787-2) 86.8 81-99 [facility] TylerMean Corpuscular Rzsgpctagj5270-61-18 06:39:00* Test Item Value Reference Range Interpretation Comments Mean Corpuscular Hemoglobin (test code = 785-6) 27.5 28-32 L [facility] TylerMean Corpuscular Hemoglobin Concent 2018-03-09 06:39:00* Test Item Value Reference Range Interpretation Comments Mean Corpuscular Hemoglobin Concent (test code = 786-4) 31.7 31-35 [facility] TylerRed Cell Distribution Jqqur6147-65-51 06:39:00* Test Item Value Reference Range Interpretation Comments Red Cell Distribution Width (test code = 60583-6) 16.4 11.7 -14.4 H [facility] TylerPlatelet Bxqih6372-86-42 06:39:00* Test Item Value Reference Range Interpretation Comments Platelet Count (test code = 777-3) 128 140-360 L [facility] TylerNeutrophils (%) (Auto)2018-03-09 06:39:00 * Test Item Value Reference Range Interpretation Comments Neutrophils (%) (Auto) (test code = 92249-0) 72.6 38.7-80.0 [facility] TylerLymphocytes (%) (Auto)2018-03-09 06:39:00 * Test Item Value Reference Range Interpretation Comments Lymphocytes (%) (Auto) (test code = 736-9) 12.1 18.0-39.1 L [facility] TylerMonocytes (%) (Auto)2018-03-09 06:39:00* Test Item Value Reference Range Interpretation Comments Monocytes (%) (Auto) (test code = 5905-5) 7.9 4.4-11.3 [facility] TylerEosinophils (%) (Auto)2018-03-09 06:39:00 * Test Item Value Reference Range Interpretation Comments Eosinophils (%) (Auto) (test code = 713-8) 5.1 0.0-6.0 [facility] TylerBasophils (%) (Auto)2018-03-09 06:39:00* Test Item Value Reference Range Interpretation Comments Basophils (%) (Auto) (test code = 706-2) 0.4 0.0-1.0 [facility] TylerIM GRANULOCYTES %2018-03-09 06:39:00* Test Item Value Reference Range Interpretation Comments IM GRANULOCYTES % (test code = IM GRANULOCYTES %) 1.9 0.0- 1.0 H [facility] TylerNeutrophils # (Auto)2018-03-09 06:39:00* Test Item Value Reference Range Interpretation Comments Neutrophils # (Auto) (test code = 751-8) 7.6 2.1-6.9 H [facility] TylerLymphocytes # (Auto)2018-03-09 06:39:00* Test Item Value Reference Range Interpretation Comments Lymphocytes # (Auto) (test code = 03127-2) 1.3 1.0-3.2 [facility] TylerMonocytes # (Auto)2018-03-09 06:39:00* Test Item Value Reference Range Interpretation Comments Monocytes # (Auto) (test code = 742-7) 0.8 0.2-0.8 [facility] TylerEosinophils # (Auto)2018-03-09 06:39:00* Test Item Value Reference Range Interpretation Comments Eosinophils # (Auto) (test code = 711-2) 0.5 0.0-0.4 H [facility] TylerBasophils # (Auto)2018-03-09 06:39:00* Test Item Value Reference Range Interpretation Comments Basophils # (Auto) (test code = 704-7) 0.0 0.0-0.1 [facility] TylerAbsolute Immature Granulocyte (auto 2018-03-09 06:39:00* Test Item Value Reference Range Interpretation Comments Absolute Immature Granulocyte (auto (melina t code = Absolute Immature Granulocyte (auto) 0.20 0-0.1 [facility] Stationodium Vorvd1106-91-03 06:34:00* Test Item Value Reference Range Interpretation Comments Sodium Level (test code = 2951-2) 138 136-145 [facility] TylerPotassium Hlgxc3389-61-95 06:34:00* Test Item Value Reference Range Interpretation Comments Potassium Level (test code = 2823-3) 4.0 3.5-5.1 [facility] TylerChloride Yzrlc9153-93-10 06:34:00* Test Item Value Reference Range Interpretation Comments Chloride Level (test code = 2075-0) 101 98-107 [facility] TylerCarbon Dioxide Ycoyb8915-56-29 06:34:00* Test Item Value Reference Range Interpretation Comments Carbon Dioxide Level (test code = 2028-9) 27 22-29 [facility] TylerAnion Sjz5847-23-17 06:34:00* Test Item Value Reference Range Interpretation Comments Anion Gap (test code = 45421-9) 14.0 8-16 [facility] TylerBlood Urea Sdnddkeo7268-07-50 06:34:00* Test Item Value Reference Range Interpretation Comments Blood Urea Nitrogen (test code = 3094-0) 9 7-26 [facility] TylerCreatinine2018-06-21 06:34:00* Test Item Value Reference Range Interpretation Comments Creatinine (test code = 2160-0) 0.60 0.57-1.11 [facility] TylerBUN/Creatinine Bwnja6233-04-04 06:34:00* Test Item Value Reference Range Interpretation Comments BUN/Creatinine Ratio (test code = 3097-3) 15 6-25 [facility] TylerEstimat Glomerular Filtration Rate 2018-03-09 06:34:00* Test Item Value Reference Range Interpretation Comments Estimat Glomerular Filtration Rate (test code = 09887-2) 60- >60 Ranges were taken from the National Kidney Disease Education Program and the [facility] Foundation literature.Reference ranges:60 or greater: Eavrbx61-53 ( for 3 consecutive months): Chronic kidney disease 15 or less: Kidney failureCHRISTUS Mother Frances Hospital – TylerGlucose Wwbsi9692-63-66 06:34:00* Test Item Value Reference Range Interpretation Comments Glucose Level (test code = GWL1234) 116 74-118 [facility] TylerCalcium Dovvd3624-89-52 06:34:00* Test Item Value Reference Range Interpretation Comments Calcium Level (test code = 51696-5) 9.7 8.4-10.2 [facility] TylerMagnesium Asilx8594-94-91 06:34:00* Test Item Value Reference Range Interpretation Comments Magnesium Level (test code = 41155-9) 1.3 1.3-2.1 [facility] TylerMagnesium Skwie5771-96-32 06:34:00* Test Item Value Reference Range Interpretation Comments Magnesium Level (test code = 61026-9) 1.3 1.3-2.1 [facility] TylerMagnesium Rapsi5728-66-01 06:34:00* Test Item Value Reference Range Interpretation Comments Magnesium Level (test code = 90623-7) 1.3 1.3-2.1 [facility] 06:05:00 [address] [address] Patient Name: MOJGAN CUMMINGS MR #: [id number] : 1950 Age/Sex: 68/F Req #: [id number] Adm Physician: ILAN STEIN MD Ordered by: IVETH COBIAN MD Report #: [id number] Location: [facility] Room/Bed: [address] [address] Procedure: [id number] DX/CHEST SINGLE (PORTABLE) Exam Date: Exam Time: [...] 6:08 AM Dictated By: ANA ZHAO MD 06 8 Transcribed By: BAMBI on 03/09/18 0608 COPY TO: IVETH COBIAN MD CHEST SINGLE (PORTABLE)2018-03-08 14:02:00 [address] [address] Patient Name: MOJGAN CUMMINGS #: [id number] : 1950 Age/Sex: 68/F Req #: [id number] [facility] Physician: ILAN SETIN MD Ordered by: IVETH COBIAN MD Report #: [id number] Location: [facility] Room/Bed: [address] [address] Procedure: [id number] DX/CHEST SINGLE (PORTABLE) Exam Date: 03/08/18 Exam Time: 1300 REPORT STATUS: Signed PROCEDURE: A single AP view of the c hest. COMPARISON: [facility], DX, CHEST SINGLE (PORTABLE), 03/08/2018, 6:08. INDICATIONS: [...] ctronically Signed By: DANAE ONEIL DO on 03/08/181401 Transcribed By: DEN on 03/08/181401 COPY TO: IVETH COBIAN MD CHEST SINGLE (PORTABLE)2018-03-08 06:31:[address] [address] Patient Name: MOJGAN CUMMINGS MR #: [id number] : 1950 Age/Sex: 68/F Req #: [id number] Adm Physician: ILAN STEIN MD Ordered by: IVETH COBIAN MD Report #: [id number] Location: [facility] Room/Bed: [place] [address] Procedure: [id number] DX/CHEST SINGLE (PORTABLE) Exam Date: 03/08/18 Exam [...] on 03/08/18635 COPY TO: IVETH COBIAN MD Clostridium Difficile Toxin A & [id number] 10:30:00* Test Item Value Reference Range Interpretation Comments Clostridium Difficile Toxin A & B (test code = 504081888) NEGATIVE NEGATIVE Testing on stool aspirate specimens is outside motor vehicle representative claims since specime n type not validated on this assay.[facility] Clostridium Difficile Toxin A & [id number] 10:30:00* Test Item Value Reference Range Interpretation Comments Clostridium Difficile Toxin A & B (test code = 706817702) NEGATIVE NEGATIVE Testing on stool aspirate specimens is outside motor vehicle representative claims since specime n type not validated on this assay.[facility] Clostridium Difficile Toxin A & [id number] 10:30:00* Test Item Value Reference Range Interpretation Comments Clostridium Difficile Toxin A & B (test code = 161535667) NEGATIVE NEGATIVE Testing on stool aspirate specimens is outside motor vehicle representative claims since specime n type not validated on this assay.[facility] Clostridium Difficile Toxin A & [id number] 10:30:00* Test Item Value Reference Range Interpretation Comments Clostridium Difficile Toxin A & B (test code = 869580440) NEGATIVE NEGATIVE Testing on stool aspirate specimens is outside motor vehicle representative claims since specime n type not validated on this assay.[facility] Clostridium Difficile Toxin A & [id number] 10:30:00* Test Item Value Reference Range Interpretation Comments Clostridium Difficile Toxin A & B (test code = 097917462) NEGATIVE NEGATIVE Testing on stool aspirate specimens is outside motor vehicle representative claims since specime n type not validated on this assay.[facility] Differential Total Cells Twkrzmj3984-33-18 07:24:00* Test Item Value Reference Range Interpretation Comments Differential Total Cells Counted (test code = Differjesus tial Total Cells Counted) 100 [facility] TylerNeutrophils % (Manual)2018-03-07 07:24:00 * Test Item Value Reference Range Interpretation Comments Neutrophils % (Manual) (test code = 22598-3) 72 40-74 [facility] TylerLymphocytes % (Manual)2018-03-07 07:24:00 * Test Item Value Reference Range Interpretation Comments Lymphocytes % (Manual) (test code = 737-7) 18 19-48 L [facility] TylerMonocytes % (Manual)2018-03-07 07:24:00* Test Item Value Reference Range Interpretation Comments Monocytes % (Manual) (test code = 744-3) 5 3.4-9.0 [facility]osin[facility] % (Manual)2018-03-07 07:24:00 * Test Item Value Reference Range Interpretation Comments Eosinophils % (Manual) (test code = 714-6) 4 0-7 [facility] TylerMetamyelocytes %2018-03-07 07:24:00* Test Item Value Reference Range Interpretation Comments Metamyelocytes % (test code = 740-1) 1 0-0 H [facility] TylerPlatelet Bkohpfnm3383-51-30 07:24:00* Test Item Value Reference Range Interpretation Comments Platelet Estimate (test code = 61638-6) ADEQUATE [facility] Tyler[facility]atelet Morphology Pybqtif0270-21-66 07:24:00* Test Item Value Reference Range Interpretation Comments Platelet Morphology Comment (test code = 62647-8) FEW GIANT [facility] TylerHypochromasia2018-06-19 07:24:00* Test Item Value Reference Range Interpretation Comments Hypochromasia (test code = 728-6) SLIGHT [facility] TylerPoikilocytosis2018-06-19 07:24:00* Test Item Value Reference Range Interpretation Comments Poikilocytosis (test code = 779-9) SLIGHT [facility] TylerAnisocytosis2018-06-19 07:24:00* Test Item Value Reference Range Interpretation Comments Anisocytosis (test code = 702-1) SLIGHT [facility] TylerRed Cell Morphology Kahfjwa5941-91-34 07:24:00* Test Item Value Reference Range Interpretation Comments Red Cell Morphology Comment (test code = 6742-1) NORMAL [facility] TylerDifferential Total Cells Counted 2018-03-07 07:24:00* Test Item Value Reference Range Interpretation Comments Differential Total Cells Counted (test code = Differjesus tial Total Cells Counted) 100 [facility] TylerNeutrophils % (Manual)2018-03-07 07:24:00 * Test Item Value Reference Range Interpretation Comments Neutrophils % (Manual) (test code = 47103-2) 72 40-74 [facility] TylerLymphocytes % (Manual)2018-03-07 07:24:00 * Test Item Value Reference Range Interpretation Comments Lymphocytes % (Manual) (test code = 737-7) 18 19-48 L [facility] TylerMonocytes % (Manual)2018-03-07 07:24:00* Test Item Value Reference Range Interpretation Comments Monocytes % (Manual) (test code = 744-3) 5 3.4-9.0 [facility] Tyler[facility]osin[facility] % (Manual)2018-03-07 07:24:00 * Test Item Value Reference Range Interpretation Comments Eosinophils % (Manual) (test code = 714-6) 4 0-7 [facility] TylerMetamyelocytes %2018-03-07 07:24:00* Test Item Value Reference Range Interpretation Comments Metamyelocytes % (test code = 740-1) 1 0-0 H [facility] TylerPlatelet Jykumets2335-30-01 07:24:00* Test Item Value Reference Range Interpretation Comments Platelet Estimate (test code = 95204-7) ADEQUATE [facility] TylerPlatelet Morphology Brbbtyw7380-95-76 07:24:00* Test Item Value Reference Range Interpretation Comments Platelet Morphology Comment (test code = 30340-4) FEW GIANT [facility] TylerHypochromasia2018-06-19 07:24:00* Test Item Value Reference Range Interpretation Comments Hypochromasia (test code = 728-6) SLIGHT [facility] TylerPoikilocytosis2018-06-19 07:24:00* Test Item Value Reference Range Interpretation Comments Poikilocytosis (test code = 779-9) SLIGHT [facility] TylerAnisocytosis2018-06-19 07:24:00* Test Item Value Reference Range Interpretation Comments Anisocytosis (test code = 702-1) SLIGHT [facility] TylerRed Cell Morphology Rwlgqyw9782-35-83 07:24:00* Test Item Value Reference Range Interpretation Comments Red Cell Morphology Comment (test code = 6742-1) NORMAL [facility] TylerDifferential Total Cells Counted 2018-03-07 07:24:00* Test Item Value Reference Range Interpretation Comments Differential Total Cells Counted (test code = Differjesus tial Total Cells Counted) 100 [facility] TylerNeutrophils % (Manual)2018-03-07 07:24:00 * Test Item Value Reference Range Interpretation Comments Neutrophils % (Manual) (test code = 12782-8) 72 40-74 [facility] TylerLymphocytes % (Manual)2018-03-07 07:24:00 * Test Item Value Reference Range Interpretation Comments Lymphocytes % (Manual) (test code = 737-7) 18 19-48 L [facility] TylerMonocytes % (Manual)2018-03-07 07:24:00* Test Item Value Reference Range Interpretation Comments Monocytes % (Manual) (test code = 744-3) 5 3.4-9.0 [facility] TylerEosinophils % (Manual)2018-03-07 07:24:00 * Test Item Value Reference Range Interpretation Comments Eosinophils % (Manual) (test code = 714-6) 4 0-7 [facility] TylerMetamyelocytes %2018-03-07 07:24:00* Test Item Value Reference Range Interpretation Comments Metamyelocytes % (test code = 740-1) 1 0-0 H [facility] TylerPlatelet Sqtszbgm1322-39-10 07:24:00* Test Item Value Reference Range Interpretation Comments Platelet Estimate (test code = 08487-5) ADEQUATE [facility] TylerPlatelet Morphology Ngzltki9249-55-03 07:24:00* Test Item Value Reference Range Interpretation Comments Platelet Morphology Comment (test code = 06626-7) FEW GIANT [facility] TylerHypochromasia2018-06-19 07:24:00* Test Item Value Reference Range Interpretation Comments Hypochromasia (test code = 728-6) SLIGHT [facility] TylerPoikilocytosis2018-06-19 07:24:00* Test Item Value Reference Range Interpretation Comments Poikilocytosis (test code = 779-9) SLIGHT [facility] TylerAnisocytosis2018-06-19 07:24:00* Test Item Value Reference Range Interpretation Comments Anisocytosis (test code = 702-1) SLIGHT [facility] TylerRed Cell Morphology Uopafzn4719-21-87 07:24:00* Test Item Value Reference Range Interpretation Comments Red Cell Morphology Comment (test code = 6742-1) NORMAL [facility] TylerDifferential Total Cells Counted 2018-03-07 07:24:00* Test Item Value Reference Range Interpretation Comments Differential Total Cells Counted (test code = Differen tial Total Cells Counted) 100 [facility] TylerNeutrophils % (Manual)2018-03-07 07:24:00 * Test Item Value Reference Range Interpretation Comments Neutrophils % (Manual) (test code = 18513-5) 72 40-74 [facility] TylerLymphocytes % (Manual)2018-03-07 07:24:00 * Test Item Value Reference Range Interpretation Comments Lymphocytes % (Manual) (test code = 737-7) 18 19-48 L [facility] TylerMonocytes % (Manual)2018-03-07 07:24:00* Test Item Value Reference Range Interpretation Comments Monocytes % (Manual) (test code = 744-3) 5 3.4-9.0 [facility] TylerEosinophils % (Manual)2018-03-07 07:24:00 * Test Item Value Reference Range Interpretation Comments Eosinophils % (Manual) (test code = 714-6) 4 0-7 [facility] TylerMetamyelocytes %2018-03-07 07:24:00* Test Item Value Reference Range Interpretation Comments Metamyelocytes % (test code = 740-1) 1 0-0 H [facility] TylerHypochromasia2018-06-19 07:24:00* Test Item Value Reference Range Interpretation Comments Hypochromasia (test code = 728-6) SLIGHT [facility] TylerPoikilocytosis2018-06-19 07:24:00* Test Item Value Reference Range Interpretation Comments Poikilocytosis (test code = 779-9) SLIGHT [facility] TylerAnisocytosis2018-06-19 07:24:00* Test Item Value Reference Range Interpretation Comments Anisocytosis (test code = 702-1) SLIGHT [facility] TylerDifferential Total Cells Counted 2018-03-07 07:24:00* Test Item Value Reference Range Interpretation Comments Differential Total Cells Counted (test code = Differen tial Total Cells Counted) 100 [facility] TylerNeutrophils % (Manual)2018-03-07 07:24:00 * Test Item Value Reference Range Interpretation Comments Neutrophils % (Manual) (test code = 77004-3) 72 40-74 [facility] TylerLymphocytes % (Manual)2018-03-07 07:24:00 * Test Item Value Reference Range Interpretation Comments Lymphocytes % (Manual) (test code = 737-7) 18 19-48 L [facility] TylerMonocytes % (Manual)2018-03-07 07:24:00* Test Item Value Reference Range Interpretation Comments Monocytes % (Manual) (test code = 744-3) 5 3.4-9.0 [facility] TylerEosinophils % (Manual)2018-03-07 07:24:00 * Test Item Value Reference Range Interpretation Comments Eosinophils % (Manual) (test code = 714-6) 4 0-7 [facility] TylerMetamyelocytes %2018-03-07 07:24:00* Test Item Value Reference Range Interpretation Comments Metamyelocytes % (test code = 740-1) 1 0-0 H [facility] TylerHypochromasia2018-06-19 07:24:00* Test Item Value Reference Range Interpretation Comments Hypochromasia (test code = 728-6) SLIGHT [facility] TylerPoikilocytosis2018-06-19 07:24:00* Test Item Value Reference Range Interpretation Comments Poikilocytosis (test code = 779-9) SLIGHT [facility] TylerAnisocytosis2018-06-19 07:24:00* Test Item Value Reference Range Interpretation Comments Anisocytosis (test code = 702-1) SLIGHT [facility] TylerMetamyelocytes %2018-03-07 07:24:00* Test Item Value Reference Range Interpretation Comments Metamyelocytes % (test code = 740-1) 1 0-0 H [facility] TylerPoikilocytosis2018-06-19 07:24:00* Test Item Value Reference Range Interpretation Comments Poikilocytosis (test code = 779-9) SLIGHT [facility] TylerMetamyelocytes %2018-03-07 07:24:00* Test Item Value Reference Range Interpretation Comments Metamyelocytes % (test code = 740-1) 1 0-0 H [facility] TylerMetamyelocytes %2018-03-07 07:24:00* Test Item Value Reference Range Interpretation Comments Metamyelocytes % (test code = 740-1) 1 0-0 H [facility] TylerMetamyelocytes %2018-03-07 07:24:00* Test Item Value Reference Range Interpretation Comments Metamyelocytes % (test code = 740-1) 1 0-0 H [facility] TylerMetamyelocytes %2018-03-07 07:24:00* Test Item Value Reference Range Interpretation Comments Metamyelocytes % (test code = 740-1) 1 0-0 H [facility] TylerMyelocytes %2018-03-06 07:42:00* Test Item Value Reference Range Interpretation Comments Myelocytes % (test code = 749-2) 1 0-0 H [facility] TylerMyelocytes %2018-03-06 07:42:00* Test Item Value Reference Range Interpretation Comments Myelocytes % (test code = 749-2) 1 0-0 H [facility] TylerMyelocytes %2018-03-06 07:42:00* Test Item Value Reference Range Interpretation Comments Myelocytes % (test code = 749-2) 1 0-0 H [facility] TylerMyelocytes %2018-03-06 07:42:00* Test Item Value Reference Range Interpretation Comments Myelocytes % (test code = 749-2) 1 0-0 H [facility] TylerMyelocytes %2018-03-06 07:42:00* Test Item Value Reference Range Interpretation Comments Myelocytes % (test code = 749-2) 1 0-0 H [facility] TylerBacteria identification in sputum by respiratory kitvrnr9601-99-86 06:16:00* Test Item Value Reference Range Interpretation Comments Sputum Culture (test code = 624-7) Organism: STAPHYLOCOCCUS AUREUS- MRSA [facility] TylerBacteria identification in sputum by respiratory nfhhhbj8602-51-33 06:16:00* Test Item Value Reference Range Interpretation Comments Sputum Culture (test code = 624-7) Organism: STAPHYLOCOCCUS AUREUS- MRSA [facility] TylerBacteria identification in sputum by respiratory jrrysuo0206-78-11 06:16:00* Test Item Value Reference Range Interpretation Comments Sputum Culture (test code = 624-7) Organism: STAPHYLOCOCCUS AUREUS- MRSA [facility] TylerBacteria identification in sputum by respiratory xysxpqg1196-58-58 06:16:00* Test Item Value Reference Range Interpretation Comments Sputum Culture (test code = 624-7) Organism: STAPHYLOCOCCUS AUREUS- MRSA [facility] TylerBacteria identification in sputum by respiratory cryvpwu4462-30-51 06:16:00* Test Item Value Reference Range Interpretation Comments Sputum Culture (test code = 624-7) Organism: STAPHYLOCOCCUS AUREUS- MRSA [facility] TylerBacteria identification in sputum by respiratory opslbrh6183-92-78 06:16:00* Test Item Value Reference Range Interpretation Comments Sputum Culture (test code = 624-7) Organism: STAPHYLOCOCCUS AUREUS- MRSA [facility] TylerBacteria identification in sputum by respiratory kcvszit4087-67-31 06:16:00* Test Item Value Reference Range Interpretation Comments Sputum Culture (test code = 624-7) Organism: STAPHYLOCOCCUS AUREUS- [facility] Zpvwavn9387-15-30 06:16:00* Test Item Value Reference Range Interpretation Comments Sputum Culture (test code = 624-7) Organism: STAPHYLOCOCCUS AUREUS- MRSA [facility] Tyler[facility] ([facility])2018-03-06 06:16:00 [place] [address] Patient Name: MOJGAN CUMMINGS MR #: [id number] : 1950 Age/Sex: 68/F Req #: [id number] Adm Physician: ILAN STEIN MD Ordered by: IVETH COBIAN MD Report #: [id number] Location: [facility] Room/Bed: [place] [address] Procedure: [id number] DX/CHEST SINGLE (PORTABLE) Exam Date: 03/06/18 Exam [...] IVETH COBIAN MD CHEST SINGLE (PORTABLE)2018-03-05 06:02:00 [place] [address] Patient Name: MOJGAN CUMMINGS MR #: [id number] : 1950 Age/Sex: 68/F Req #: [id number] Adm Physician: ILAN STEIN MD Ordered by: IVETH COBIAN MD Report #: [id number] Location: ICU Room/Bed: ICU [facility] Procedure: [id number] DX /CHEST SINGLE (PORTABLE) Exam Date: 03/05/18 [...] M.D. on 03/05/2018 6:04 AM Dictated By: AKANKSHA PONCE MD [facility] Signed By: AKANKSHA PONCE MD on 03/05/18603 Transcribed By: BAMBI on 03/05 COPY TO: IVETH COBIAN MD Arterial Blood pH 2018-03-04 12:52:00* Test Item Value Reference Range Interpretation Comments Arterial Blood pH (test code = 2744-1) 7.42 7.31-7.41 H [facility] TylerAr[facility] Blood Partial Pressure CO2 2018-03-04 12:52:00* Test Item Value Reference Range Interpretation Comments Arterial Blood Partial Pressure CO2 (test code = 2018-8) 44 41-51 [facility] TylerAr[facility] Partial Pressure O2 2018-03-04 12:52:00* Test Item Value Reference Range Interpretation Comments Arterial Blood Partial Pressure O2 (test code = 2019-8) 69 80-105 L [facility] TylerAr[facility] Blood [id number] 12:52:00* Test Item Value Reference Range Interpretation Comments Arterial Blood HCO3 (test code = 1960-4) 29 23-28 H [facility] TylerArterial Blood Base Hytrny0929-70-50 12:52:00* Test Item Value Reference Range Interpretation Comments Arterial Blood Base Excess (test code = 1925-7) 4.0 -2-3 H [facility] TylerAr[facility] Blood Oxygen Saturation 2018-03-04 12:52:00* Test Item Value Reference Range Interpretation Comments Arterial Blood Oxygen Saturation (test code = 2708-6) 94.0 95-98 L [facility] TylerFiO22018-06-16 12:52:00* Test Item Value Reference Range Interpretation Comments FiO2 (test code = FiO2) 40 40% [facility] Blood [id number] 12:52:00* Test Item Value Reference Range Interpretation Comments Arterial Blood pH (test code = 2744-1) 7.42 7.31-7.41 H [facility] TylerAr[facility] Blood Partial Pressure CO2 2018-03-04 12:52:00* Test Item Value Reference Range Interpretation Comments Arterial Blood Partial Pressure CO2 (test code = 2019-8) 44 41-51 [facility] TylerAr[facility] Blood Partial Pressure O2 2018-03-04 12:52:00* Test Item Value Reference Range Interpretation Comments Arterial Blood Partial Pressure O2 (test code = 2019-8) 69 80-105 L [facility] Blood [id number] 12:52:00* Test Item Value Reference Range Interpretation Comments Arterial Blood HCO3 (test code = 1960-4) 29 23-28 H [facility] TylerAr[facility] Blood Base Xcejwc3000-80-96 12:52:00* Test Item Value Reference Range Interpretation Comments Arterial Blood Base Excess (test code = 1925-7) 4.0 -2-3 H [facility] TylerAr[facility] Blood Oxygen Saturation 2018-03-04 12:52:00* Test Item Value Reference Range Interpretation Comments Arterial Blood Oxygen Saturation (test code = 2708-6) 94.0 95-98 L [facility] TylerFiO22018-06-16 12:52:00* Test Item Value Reference Range Interpretation Comments FiO2 (test code = FiO2) 40 40% [facility] Blood [id number] 12:52:00* Test Item Value Reference Range Interpretation Comments Arterial Blood pH (test code = 2744-1) 7.42 7.31-7.41 H [facility] TylerAr[facility] Blood Partial Pressure CO2 2018-03-04 12:52:00* Test Item Value Reference Range Interpretation Comments Arterial Blood Partial Pressure CO2 (test code = 2018-8) 44 41-51 [facility] Tyler[facility] Partial Pressure O2 2018-03-04 12:52:00* Test Item Value Reference Range Interpretation Comments Arterial Blood Partial Pressure O2 (test code = 2019-8) 69 80-105 L [facility] Blood [id number] 12:52:00* Test Item Value Reference Range Interpretation Comments Arterial Blood HCO3 (test code = 1960-4) 29 23-28 H [facility] TylerAr[facility] Blood Base Smzeeg8407-37-32 12:52:00* Test Item Value Reference Range Interpretation Comments Arterial Blood Base Excess (test code = 1925-7) 4.0 -2-3 H [facility] TylerAr[facility] Blood Oxygen Saturation 2018-03-04 12:52:00* Test Item Value Reference Range Interpretation Comments Arterial Blood Oxygen Saturation (test code = 2708-6) 94.0 95-98 L [facility] TylerFiO22018-06-16 12:52:00* Test Item Value Reference Range Interpretation Comments FiO2 (test code = FiO2) 40 40% [facility]Foundation [facility]Ar[facility] Blood [id number] 12:52:00* Test Item Value Reference Range Interpretation Comments Arterial Blood pH (test code = 2744-1) 7.42 7.31-7.41 H [facility] Tyler[facility] Blood Partial Pressure CO2 2018-03-04 12:52:00* Test Item Value Reference Range Interpretation Comments Arterial Blood Partial Pressure CO2 (test code = 2018-8) 44 41-51 [facility] Tyler[facility] Blood Partial Pressure O2 2018-03-04 12:52:00* Test Item Value Reference Range Interpretation Comments Arterial Blood Partial Pressure O2 (test code = 2018-8) 69 80-105 L [facility] TylerAr[facility] Blood [id number] 12:52:00* Test Item Value Reference Range Interpretation Comments Arterial Blood HCO3 (test code = 1960-4) 29 23-28 H [facility] TylerAr[facility] Blood Base Yemcxz5701-42-51 12:52:00* Test Item Value Reference Range Interpretation Comments Arterial Blood Base Excess (test code = 1925-7) 4.0 -2-3 H [facility] TylerAr[facility] Blood Oxygen Saturation 2018-03-04 12:52:00* Test Item Value Reference Range Interpretation Comments Arterial Blood Oxygen Saturation (test code = 2708-6) 94.0 95-98 L [facility] TylerFiO22018-06-16 12:52:00* Test Item Value Reference Range Interpretation Comments FiO2 (test code = FiO2) 40 40% [facility] [id number] 12:52:00* Test Item Value Reference Range Interpretation Comments Arterial Blood pH (test code = 2744-1) 7.42 7.31-7.41 H [facility] TylerAr[facility] Blood Partial Pressure CO2 2018-03-04 12:52:00* Test Item Value Reference Range Interpretation Comments Arterial Blood Partial Pressure CO2 (test code = 2019-8) 44 41-51 [facility] Tyler[facility] Partial Pressure O2 2018-03-04 12:52:00* Test Item Value Reference Range Interpretation Comments Arterial Blood Partial Pressure O2 (test code = 2019-8) 69 80-105 L [facility] Blood [id number] 12:52:00* Test Item Value Reference Range Interpretation Comments Arterial Blood HCO3 (test code = 1960-4) 29 23-28 H [facility] TylerAr[facility] Blood Base Mrlrpr1519-52-86 12:52:00* Test Item Value Reference Range Interpretation Comments Arterial Blood Base Excess (test code = 1925-7) 4.0 -2-3 H [facility] TylerAr[facility] Blood Oxygen Saturation 2018-03-04 12:52:00* Test Item Value Reference Range Interpretation Comments Arterial Blood Oxygen Saturation (test code = 2708-6) 94.0 95-98 L [facility] TylerFiO22018-06-16 12:52:00* Test Item Value Reference Range Interpretation Comments FiO2 (test code = FiO2) 40 40% [facility] [id number] 12:52:00* Test Item Value Reference Range Interpretation Comments Arterial Blood pH (test code = 2744-1) 7.42 7.31-7.41 H [facility] Partial Pressure CO2 2018-03-04 12:52:00* Test Item Value Reference Range Interpretation Comments Arterial Blood Partial Pressure CO2 (test code = 2018-8) 44 41-51 [facility] Partial Pressure O2 2018-03-04 12:52:00* Test Item Value Reference Range Interpretation Comments Arterial Blood Partial Pressure O2 (test code = 2019-04) 69 80-105 L [facility] [id number] 12:52:00* Test Item Value Reference Range Interpretation Comments Arterial Blood HCO3 (test code = 1960-4) 29 23-[address] [facility] Base Lfaiii3867-44-63 12:52:00* Test Item Value Reference Range Interpretation Comments Arterial Blood Base Excess (test code = 1925-7) 4.0 -2-3 H [facility] Oxygen Saturation 2018-03-04 12:52:00* Test Item Value Reference Range Interpretation Comments Arterial Blood Oxygen Saturation (test code = 2708-6) 94.0 95-98 L [facility] TylerFiO22018-06-16 12:52:00* Test Item Value Reference Range Interpretation Comments FiO2 (test code = FiO2) 40 40% [facility] [id number] 12:52:00* Test Item Value Reference Range Interpretation Comments Arterial Blood pH (test code = 2744-1) 7.42 7.31-7.41 H [facility] Partial Pressure CO2 2018-03-04 12:52:00* Test Item Value Reference Range Interpretation Comments Arterial Blood Partial Pressure CO2 (test code = 2019-04) 44 41-51 [facility] Partial Pressure O2 2018-03-04 12:52:00* Test Item Value Reference Range Interpretation Comments Arterial Blood Partial Pressure O2 (test code = 2018-) 69 80-105 L [facility] [id number] 12:52:00* Test Item Value Reference Range Interpretation Comments Arterial Blood HCO3 (test code = 1960-4) 29 23-28 H [facility] Base Jgymfk6914-85-92 12:52:00* Test Item Value Reference Range Interpretation Comments Arterial Blood Base Excess (test code = 1925-7) 4.0 -2-3 H [facility] Oxygen Saturation 2018-03-04 12:52:00* Test Item Value Reference Range Interpretation Comments Arterial Blood Oxygen Saturation (test code = 2708-6) 94.0 95-98 L [facility] TylerFi[facility]22018-06-16 12:52:00* Test Item Value Reference Range Interpretation Comments FiO2 (test code = FiO2) 40 40% [facility] Blood [id number] 12:52:00* Test Item Value Reference Range Interpretation Comments Arterial Blood pH (test code = 2744-1) 7.42 7.31-7.41 H [facility] Partial Pressure CO2 2018-03-04 12:52:00* Test Item Value Reference Range Interpretation Comments Arterial Blood Partial Pressure CO2 (test code = 2019-8) 44 41-51 [facility] Partial Pressure O2 2018-03-04 12:52:00* Test Item Value Reference Range Interpretation Comments Arterial Blood Partial Pressure O2 (test code = 2019-8) 69 80-105 L [facility] Blood [id number] 12:52:00* Test Item Value Reference Range Interpretation Comments Arterial Blood HCO3 (test code = 1960-4) 29 23-28 H [facility] Base Jfhcfy8413-74-69 12:52:00* Test Item Value Reference Range Interpretation Comments Arterial Blood Base Excess (test code = 1925-7) 4.0 -2-3 H [facility] Oxygen Saturation 2018-03-04 12:52:00* Test Item Value Reference Range Interpretation Comments Arterial Blood Oxygen Saturation (test code = 2708-6) 94.0 95-98 L [facility] TylerFiO22018-06-16 12:52:00* Test Item Value Reference Range Interpretation Comments FiO2 (test code = FiO2) 40 40% [facility]Foundation [facility]Arter[facility] Blood [id number] 12:52:00* Test Item Value Reference Range Interpretation Comments Arterial Blood pH (test code = 2744-1) 7.42 7.31-7.41 H [facility] Partial Pressure CO2 2018-03-04 12:52:00* Test Item Value Reference Range Interpretation Comments Arterial Blood Partial Pressure CO2 (test code = 2018-) 44 41-51 [facility] Partial Pressure O2 2018-03-04 12:52:00* Test Item Value Reference Range Interpretation Comments Arterial Blood Partial Pressure O2 (test code = 2019-04) 69 80-105 L [facility] Blood [id number] 12:52:00* Test Item Value Reference Range Interpretation Comments Arterial Blood HCO3 (test code = 1960-4) 29 23-28 H [facility] Base Kvjfdy1669-82-68 12:52:00* Test Item Value Reference Range Interpretation Comments Arterial Blood Base Excess (test code = 1925-7) 4.0 -2-3 H [facility] Oxygen Saturation 2018-03-04 12:52:00* Test Item Value Reference Range Interpretation Comments Arterial Blood Oxygen Saturation (test code = 2708-6) 94.0 95-98 L [facility] TylerFi[facility]22018-06-16 12:52:00* Test Item Value Reference Range Interpretation Comments FiO2 (test code = FiO2) 40 40% [facility] Blood [id number] 12:52:00* Test Item Value Reference Range Interpretation Comments Arterial Blood pH (test code = 2744-1) 7.42 7.31-7.41 H [facility] Partial Pressure CO2 2018-03-04 12:52:00* Test Item Value Reference Range Interpretation Comments Arterial Blood Partial Pressure CO2 (test code = 2019-04) 44 41-51 [facility] Partial Pressure O2 2018-03-04 12:52:00* Test Item Value Reference Range Interpretation Comments Arterial Blood Partial Pressure O2 (test code = 2019-8) 69 80-105 L [facility] Blood [id number] 12:52:00* Test Item Value Reference Range Interpretation Comments Arterial Blood HCO3 (test code = 1960-4) 29 23-28 H [facility] Base Bqouzg9077-08-68 12:52:00* Test Item Value Reference Range Interpretation Comments Arterial Blood Base Excess (test code = 1925-7) 4.0 -2-3 H [facility] Oxygen Saturation 2018-03-04 12:52:00* Test Item Value Reference Range Interpretation Comments Arterial Blood Oxygen Saturation (test code = 2708-6) 94.0 95-98 L [facility] TylerFiO22018-06-16 12:52:00* Test Item Value Reference Range Interpretation Comments FiO2 (test code = FiO2) 40 40% ATCCHI [facility]2018-03-04 08:00:00 [place] [address] Patient Name: MOJGAN CUMMINGS MR #: [id number] : 1950 Age/Sex: 68/F Req #: [id number] Adm Physician: ILAN STEIN MD Ordered by: BALBIR BARDALES MD Report #: [id number] Location: ICU Room/Bed: [place] [address] Procedure: [id number] DX/CHEST SINGLE (PORTABLE) Exam Date: 03/04/18 Exam [...] Worsening pulmonary edema. Signed by: Dr. Cornelius Sprauge M.D. on 03/04/2018 8:08 AM Dictated By: CORNELIUS CURTIS MD 7 Transcribed By: BRONWYN FATIMA on 03/04/18807 COPY TO: BALBIR BARDALES MD CHEST XRAY POST [id number] 20:28:00 [place] [address] Patient Name: MOJGAN CUMMINGS MR #: [id number] : 1950 Age/Sex: 68/F Req #: [id number] Adm Physician: ILAN STEIN MD Ordered by: IVETH COBIAN MD Report #: [id number] Location: ICU Room/Bed: [place] [address] Procedure: [id number] DX /CHEST XRAY POST PROCEDURE Exam Date: Exam Time: REPORT STATUS: Signed Examination: Single AP view of the chest. [facility]: Chest AP portable 03/03/2018 INDICATION: Status [...] on 03/03/2018 8:30 PM Dictated By: [facility] Signed By: OG TURNER MD on 03/03/182029 Transcribed By: BAMBI on 03/03/182029 COPY TO: IVETH COBIAN MD CHEST SINGLE (PORTABLE)2018-03-03 19:34:00 [place] [address] Patient Name: MOJGAN CUMMINGS MR #: [id number] : 1950 Age/Sex: 68/F Req #: [id number] Adm Physician: ILAN STEIN MD Ordered by: BASIL POSADAS, AKILAH POSADAS Report #: [id number] Location: ICU Room/Bed: ICU [facility] Procedure: [id number] DX /CHEST SINGLE (PORTABLE) Exam Date: 03/02/18 [...] TO: YOVANI GRACIA CHEST SINGLE (PORTABLE)2018-03-03 18:07:00 [place] [address] Patient Name: MOJGAN CUMMINGS MR #: [id number] : 1950 Age/Sex: 68/F Req #: [id number] Adm Physician: ILAN STEIN MD Ordered by: BALBIR BARDALES MD Report #: [id number] Location: ICU Room/Bed: ICU [facility] Procedure: [id number] DX/CHEST SINGLE (PORTABLE) Exam Date: 03/03/18 Exam Time: 164 5 REPORT STATUS: Signed PROCEDURE: A single AP view of the chest. COMPARISON: [facility], DX, CHEST SINGLE (PORTABLE), 8, 5:51. [facility], DX, CHEST SINGLE (PORTABLE), 03/02/2018, 23 :15. [...] 18:07 Dictated By: NAINA FRANKLIN MD, MD 5191 Transcribed By: DEN on 03/03/18 1 807 COPY TO: BALBIR BARDALES MD Stool Occult Dxlgj2349-13-84 18:19:00 * Test Item Value Reference Range Interpretation Comments Stool Occult Blood (test code = 2335-8) POSITIVE NEGATIVE H [facility] Lrxlw7408-71-30 18:19:00* Test Item Value Reference Range Interpretation Comments Stool Occult Blood (test code = 2335-8) POSITIVE NEGATIVE H [facility] Kzoul7392-60-22 18:19:00* Test Item Value Reference Range Interpretation Comments Stool Occult Blood (test code = 2335-8) POSITIVE NEGATIVE H [facility] Ygzmx7391-68-14 18:19:00* Test Item Value Reference Range Interpretation Comments Stool Occult Blood (test code = 2335-8) POSITIVE NEGATIVE H [facility] Trfoz1601-67-57 18:19:00* Test Item Value Reference Range Interpretation Comments Stool Occult Blood (test code = 2335-8) POSITIVE NEGATIVE H [facility] Wlwwz5005-53-59 18:19:00* Test Item Value Reference Range Interpretation Comments Stool Occult Blood (test code = 2335-8) POSITIVE NEGATIVE H [facility] Hlrvn5804-23-59 18:19:00* Test Item Value Reference Range Interpretation Comments Stool Occult Blood (test code = 2335-8) POSITIVE NEGATIVE H [facility] Dtmgu4935-09-31 18:19:00* Test Item Value Reference Range Interpretation Comments Stool Occult Blood (test code = 2335-8) POSITIVE NEGATIVE H [facility]-Hydroxy Vitamin D Gsald3711-74-15 15:27:00* Test Item Value Reference Range Interpretation Comments 25-Hydroxy Vitamin D Total (test code = 13740-6) 23 . L Reference Range:All Ages: Target levels 30 - 100[facility]25-Hydroxy Vitamin [id number] 15:27:00* Test Item Value Reference Range Interpretation Comments 25-Hydroxy Vitamin D3 (test code = 86328-7) 22 . Performed at: [employer] [place] [address]Lab Director: Shun Wahl MD, Phone: [phone] [facility]25-Hydroxy Vitamin D73219-97-79 15:27:00* Test Item Value Reference Range Interpretation Comments 25-Hydroxy Vitamin D2 (test code = 1988-3) -1.0 . [facility]xy Vitamin D Fhzmg4408-48-91 15:27:00* Test Item Value Reference Range Interpretation Comments 25-Hydroxy Vitamin D Total (test code = 80281-7) 23 . L Reference Range:All Ages: Target levels 30 - 100[facility]25-Hydroxy Vitamin E99981-02-03 15:27:00* Test Item Value Reference Range Interpretation Comments 25-Hydroxy Vitamin D3 (test code = 69480-1) 22 . Performed at: [employer] [place] [address]Lab Director: Shun Wahl MD, Phone: [phone] [facility]25-Hydroxy Vitamin E98824-31-48 15:27:00* Test Item Value Reference Range Interpretation Comments 25-Hydroxy Vitamin D2 (test code = 1988-3) -1.0 . [facility]xy Vitamin D Bamyy2403-81-68 15:27:00* Test Item Value Reference Range Interpretation Comments 25-Hydroxy Vitamin D Total (test code = 52476-8) 23 . L Reference Range:All Ages: Target levels 30 - 100[facility]25-Hydroxy Vitamin J28724-48-31 15:27:00* Test Item Value Reference Range Interpretation Comments 25-Hydroxy Vitamin D3 (test code = 83308-0) 22 . Performed at: [facility] [place] [address]Lab Director: Shun Wahl MD, Phone: [phone] [facility]25-Hydroxy Vitamin [id number] 15:27:00* Test Item Value Reference Range Interpretation Comments 25-Hydroxy Vitamin D2 (test code = 1988-3) -1.0 . [facility]xy Vitamin D Yvixd4499-62-55 15:27:00* Test Item Value Reference Range Interpretation Comments 25-Hydroxy Vitamin D Total (test code = 44747-6) 23 . L Reference Range:All Ages: Target levels 30 - 100[facility]25-Hydroxy Vitamin A74556-84-88 15:27:00* Test Item Value Reference Range Interpretation Comments 25-Hydroxy Vitamin D3 (test code = 19070-6) 22 . Performed at: [employer] [address] [address]Lab Director: Shun Wahl MD, Phone: [phone] [facility]25-Hydroxy Vitamin C74597-39-82 15:27:00* Test Item Value Reference Range Interpretation Comments 25-Hydroxy Vitamin D2 (test code = 1988-3) -1.0 . [facility]xy Vitamin D Cgvri3108-02-55 15:27:00* Test Item Value Reference Range Interpretation Comments 25-Hydroxy Vitamin D Total (test code = 65181-1) 23 . L Reference Range:All Ages: Target levels 30 - 100[facility]25-Hydroxy Vitamin U75436-77-59 15:27:00* Test Item Value Reference Range Interpretation Comments 25-Hydroxy Vitamin D3 (test code = 69803-4) 22 . Performed at: [employer] [place] [address]Lab Director: Shun Wahl MD, Phone: [phone] Mother Frances [facility] – Tyler25-Hydroxy Vitamin B47326-98-53 15:27:00* Test Item Value Reference Range Interpretation Comments 25-Hydroxy Vitamin D2 (test code = 1988-3) -1.0 . [facility]xy Vitamin D Uokpx8654-96-93 15:27:00* Test Item Value Reference Range Interpretation Comments 25-Hydroxy Vitamin D Total (test code = 89479-8) 23 . L Reference Range:All Ages: Target levels 30 - 100[facility]25-Hydroxy Vitamin F05441-33-90 15:27:00* Test Item Value Reference Range Interpretation Comments 25-Hydroxy Vitamin D3 (test code = 92967-1) 22 . Performed at: [facility] [place] [address]Lab Director: Shun Wahl MD, Phone: [phone] [facility]25-Hydroxy Vitamin P56328-76-91 15:27:00* Test Item Value Reference Range Interpretation Comments 25-Hydroxy Vitamin D2 (test code = 1988-) -1.0 . [facility]25-Hydroxy Vitamin D Bjcop8990-63-43 15:27:00* Test Item Value Reference Range Interpretation Comments 25-Hydroxy Vitamin D Total (test code = 39859-8) 23 . L Reference Range:All Ages: Target levels 30 - 100[facility]25-Hydroxy Vitamin J93618-14-34 15:27:00* Test Item Value Reference Range Interpretation Comments 25-Hydroxy Vitamin D3 (test code = 63370-3) 22 . Performed at: [facility] [place] [address]Lab Director: Shun Wahl MD, Phone: [phone] [facility]25-Hydroxy Vitamin P35361-05-48 15:27:00* Test Item Value Reference Range Interpretation Comments 25-Hydroxy Vitamin D2 (test code = 1988-3) -1.0 . [facility]25-Hydroxy Vitamin D Mkuwh0252-66-49 15:27:00* Test Item Value Reference Range Interpretation Comments 25-Hydroxy Vitamin D Total (test code = 44770-8) 23 . L Reference Range:All Ages: Target levels 30 - 100[facility]25-Hydroxy Vitamin U09407-86-72 15:27:00* Test Item Value Reference Range Interpretation Comments 25-Hydroxy Vitamin D3 (test code = 51198-1) 22 . Performed at: [facility] [place] [address] Director: Shun Wahl MD, Phone: [phone] [facility] Frances Hospital – [facility]25-Hydroxy Vitamin [id number] 15:27:00* Test Item Value Reference Range Interpretation Comments 25-Hydroxy Vitamin D2 (test code = 1988-3) <1.0 . [facility]25-[facility]xy Vitamin D Exfuc8974-07-70 15:27:00* Test Item Value Reference Range Interpretation Comments 25-Hydroxy Vitamin D Total (test code = 46792-0) 23 . L Reference Range:All Ages: Target levels 30 - 100[facility]25-Hydroxy Vitamin T23508-84-91 15:27:00* Test Item Value Reference Range Interpretation Comments 25-Hydroxy Vitamin D3 (test code = 71725-1) 22 . Performed at: [facility] [place] [address]Lab Director: Shun Wahl MD, Phone: [phone] Mother Frances Hospital – [facility]25-Hydroxy Vitamin G74317-73-40 15:27:00* Test Item Value Reference Range Interpretation Comments 25-Hydroxy Vitamin D2 (test code = 1988-3) <1.0 . [facility]25-Hydroxy Vitamin D Ltodz9690-83-31 15:27:00* Test Item Value Reference Range Interpretation Comments 25-Hydroxy Vitamin D Total (test code = 20523-7) 23 . L Reference Range:All Ages: Target levels 30 - 100[facility]25-Hydroxy Vitamin D45467-15-69 15:27:00* Test Item Value Reference Range Interpretation Comments 25-Hydroxy Vitamin D3 (test code = 27354-2) 22 . Performed at: [facility] [employer] [address] [place] [address]Lab Director: Shun Wahl MD, Phone: [phone] [facility]25-Hydroxy Vitamin O66133-52-96 15:27:00* Test Item Value Reference Range Interpretation Comments 25-Hydroxy Vitamin D2 (test code = 1989-3) <1.0 . [facility] N[facility] MB3922-42-40 13:43:00 [facility] [address] [place] [address] Patient Name: MOJGAN CUMMINGS MR #: [id number] : 05/1950 Age/Sex: 68/F Req #: [id number] Adm Physician: ILAN MAURICIO MD Ordered by: BASIL POSADAS, AKILAH POSADAS Report #: [id number] Loca tion: MED/SURG2 Room/Bed: Formerly named [facility] Procedure: [id number] CT/CT SOFT TISSUE NECK WO Exam Date: [...] 0 03/01/18 1351 COPY TO: AKILAH GRACIA Blood Oyeyukm3913-08-33 10:18:00* Test Item Value Reference Range Interpretation Comments Blood Culture (test code = 16847211) NO GROWTH AFTER 5 DAYS, FINAL REPORT [facility] Mitwqzt4755-72-39 10:18:00* Test Item Value Reference Range Interpretation Comments Blood Culture (test code = 93415975) NO GROWTH AFTER 5 DAYS, FINAL REPORT [facility] Qhkofbq9920-84-92 10:18:00* Test Item Value Reference Range Interpretation Comments Blood Culture (test code = 89344645) NO GROWTH AFTER 5 DAYS, FINAL REPORT [facility] Yimqsol6031-16-15 10:18:00* Test Item Value Reference Range Interpretation Comments Blood Culture (test code = 34393255) NO GROWTH AFTER 5 DAYS, FINAL REPORT [facility] Pzfrhmr5080-78-30 10:18:00* Test Item Value Reference Range Interpretation Comments Blood Culture (test code = 61283768) NO GROWTH AFTER 5 DAYS, FINAL REPORT [facility]2018-06-13 05:46:00* Test Item Value Reference Range Interpretation Comments Sputum Culture (test code = 624-7) Organism: PSEUDOMONAS AERUGINOSA [facility]2018-06-13 05:46:00* Test Item Value Reference Range Interpretation Comments Sputum Culture (test code = 624-7) Organism: PSEUDOMONAS AERUGINOSA [facility]2018-06-13 05:46:00* Test Item Value Reference Range Interpretation Comments Sputum Culture (test code = 624-7) Organism: PSEUDOMONAS AERUGINOSA [facility]2018-06-13 05:46:00* Test Item Value Reference Range Interpretation Comments Sputum Culture (test code = 624-7) Organism: PSEUDOMONAS AERUGINOSA [facility]2018-06-13 05:46:00* Test Item Value Reference Range Interpretation Comments Sputum Culture (test code = 624-7) Organism: PSEUDOMONAS AERUGINOSA [facility]2018-06-13 05:46:00* Test Item Value Reference Range Interpretation Comments Sputum Culture (test code = 624-7) Organism: PSEUDOMONAS AERUGINOSA [facility]2018-06-13 05:46:00* Test Item Value Reference Range Interpretation Comments Sputum Culture (test code = 624-7) Organism: PSEUDOMONAS AERUGINOSA [facility]2018-06-13 05:46:00* Test Item Value Reference Range Interpretation Comments Sputum Culture (test code = 624-7) Organism: PSEUDOMONAS AERUGINOSA [facility]2018-06-13 05:46:00* Test Item Value Reference Range Interpretation Comments Sputum Culture (test code = 624-7) Organism: PSEUDOMONAS AERUGINOSA [facility] Dogjpun5613-82-57 05:46:00* Test Item Value Reference Range Interpretation Comments Sputum Culture (test code = 624-7) Organism: PSEUDOMONAS AERUGINOSA [facility] %2018-02-28 09:42:00* Test Item Value Reference Range Interpretation Comments Band Neutrophils % (test code = 764-1) 1 [facility] Tyler[facility] % (Manual)2018-02-28 09:42:00* Test Item Value Reference Range Interpretation Comments Basophils % (Manual) (test code = 79436-3) 1 0-1.5 [facility] TylerReactive Kalmwknbrey3666-38-55 09:42:00* Test Item Value Reference Range Interpretation Comments Reactive Lymphocytes (test code = 00340-5) 1 [facility] Tyler[facility] Neutrophils %2018-02-28 09:42:00* Test Item Value Reference Range Interpretation Comments Band Neutrophils % (test code = 764-1) 1 [facility] Tyler[facility]ophils % (Manual)2018-02-28 09:42:00* Test Item Value Reference Range Interpretation Comments Basophils % (Manual) (test code = 57454-2) 1 0-1.5 [facility] Ttstihaosan1642-12-13 09:42:00* Test Item Value Reference Range Interpretation Comments Reactive Lymphocytes (test code = 09981-8) 1 [facility] Tyler[facility] Neutrophils %2018-02-28 09:42:00* Test Item Value Reference Range Interpretation Comments Band Neutrophils % (test code = 764-1) 1 [facility] Tyler[facility] % (Manual)2018-02-28 09:42:00* Test Item Value Reference Range Interpretation Comments Basophils % (Manual) (test code = 91255-3) 1 0-1.5 [facility] Tyler[facility] Lubioeumtnm7068-68-57 09:42:00* Test Item Value Reference Range Interpretation Comments Reactive Lymphocytes (test code = 94147-0) 1 [facility] Tyler[facility] Neutrophils %2018-02-28 09:42:00* Test Item Value Reference Range Interpretation Comments Band Neutrophils % (test code = 764-1) 1 [facility] Tyler[facility] % (Manual)2018-02-28 09:42:00* Test Item Value Reference Range Interpretation Comments Basophils % (Manual) (test code = 08975-4) 1 0-1.5 [facility] Ngmqcuwnsao0317-71-91 09:42:00* Test Item Value Reference Range Interpretation Comments Reactive Lymphocytes (test code = 39389-7) 1 [facility]2018-02-28 09:42:00* Test Item Value Reference Range Interpretation Comments Band Neutrophils % (test code = 764-1) 1 [facility] % (Manual)2018-02-28 09:42:00* Test Item Value Reference Range Interpretation Comments Basophils % (Manual) (test code = 51304-1) 1 0-1.5 [facility] Tyler[facility]active Qotshfnakay2358-71-69 09:42:00* Test Item Value Reference Range Interpretation Comments Reactive Lymphocytes (test code = 20059-2) 1 [facility] Tyler[facility]iglycerides Xybpe3486-68-17 06:37:00* Test Item Value Reference Range Interpretation Comments Triglycerides Level (test code = 2571-8) 124 0-149 [facility] TylerCholesterol Vfxnx5425-33-41 06:37:00* Test Item Value Reference Range Interpretation Comments Cholesterol Level (test code = 2093-3) 119 0-199 Less than 200 mg/dL Low Nhij612 - 239 mg/dL Borderline Axjo080 m g/dl and greater High Risk [facility] TylerLDL Anczpndqkzv0387-50-23 06:37:00* Test Item Value Reference Range Interpretation Comments LDL Cholesterol (test code = 2089-1) 44 60-130 L [facility] TylerHDL Eipzdpdynuh4871-76-66 06:37:00* Test Item Value Reference Range Interpretation Comments HDL Cholesterol (test code = 2085-9) 50 40-60 [facility] Tyler[facility]/HDL Odmwd5531-49-54 06:37:00 * Test Item Value Reference Range Interpretation Comments Cholesterol/HDL Ratio (test code = 9830-1) 2.4 3.0-3.6 L [facility] TylerTriglycerides Izaui8698-57-21 06:37:00* Test Item Value Reference Range Interpretation Comments Triglycerides Level (test code = 2571-8) 124 0-149 [facility] TylerCholesterol Rxyrm7176-47-71 06:37:00* Test Item Value Reference Range Interpretation Comments Cholesterol Level (test code = 2093-3) 119 0-199 Less than 200 mg/dL Low Ipql292 - 239 mg/dL Borderline Hztz604 m g/dl and greater High Risk [facility] TylerLDL Lwistuykiez2023-99-40 06:37:00* Test Item Value Reference Range Interpretation Comments LDL Cholesterol (test code = 2089-1) 44 60-[address] [facility] Swceacgmmtd0468-59-15 06:37:00* Test Item Value Reference Range Interpretation Comments HDL Cholesterol (test code = 2085-9) 50 40-60 [facility]/HDL Mnbdu8225-87-02 06:37:00 * Test Item Value Reference Range Interpretation Comments Cholesterol/HDL Ratio (test code = 9830-1) 2.4 3.0-3.6 L [facility] TylerTriglycerides Afzlu2412-75-15 06:37:00* Test Item Value Reference Range Interpretation Comments Triglycerides Level (test code = 2571-8) 124 0-149 [facility] TylerCh[facility] Xlquw3373-20-19 06:37:00* Test Item Value Reference Range Interpretation Comments Cholesterol Level (test code = 2093-3) 119 0-199 Less than 200 mg/dL Low Qxel173 - 239 mg/dL Borderline Yxcl835 m g/dl and greater High Risk [facility]LDL Fvoslhfrkux1486-79-32 06:37:00* Test Item Value Reference Range Interpretation Comments LDL Cholesterol (test code = 2089-1) 44 60-[address] [facility] Ppgddqvvzer3668-16-01 06:37:00* Test Item Value Reference Range Interpretation Comments HDL Cholesterol (test code = 2085-9) 50 40-60 [facility]/HDL Acilf2576-55-81 06:37:00 * Test Item Value Reference Range Interpretation Comments Cholesterol/HDL Ratio (test code = 9830-1) 2.4 3.0-3.6 L [facility] TylerTriglycerides Bepzl3570-47-38 06:37:00* Test Item Value Reference Range Interpretation Comments Triglycerides Level (test code = 2571-8) 124 0-149 [facility] TylerCholesterol Mkrvn6679-93-70 06:37:00* Test Item Value Reference Range Interpretation Comments Cholesterol Level (test code = 2093-3) 119 0-199 Less than 200 mg/dL Low Lznp501 - 239 mg/dL Borderline Xhfc828 m g/dl and greater High Risk [facility] TylerLDL Duaihmkxanc1634-38-10 06:37:00* Test Item Value Reference Range Interpretation Comments LDL Cholesterol (test code = 2089-1) 44 60-130 L [facility] Toargazvviy4209-90-91 06:37:00* Test Item Value Reference Range Interpretation Comments HDL Cholesterol (test code = 2085-9) 50 40-60 [facility]HDL Tprfo8380-14-80 06:37:00 * Test Item Value Reference Range Interpretation Comments Cholesterol/HDL Ratio (test code = 9830-1) 2.4 3.0-3.6 L [facility] TylerTriglycerides Yhmzp5095-61-12 06:37:00* Test Item Value Reference Range Interpretation Comments Triglycerides Level (test code = 2571-8) 124 0-149 [facility] TylerCholesterol Olvih3374-86-38 06:37:00* Test Item Value Reference Range Interpretation Comments Cholesterol Level (test code = 2093-3) 119 0-199 Less than 200 mg/dL Low Lfvt321 - 239 mg/dL Borderline Ftzq651 m g/dl and greater High Risk [facility] Cqvvjjubaxd8979-23-55 06:37:00* Test Item Value Reference Range Interpretation Comments LDL Cholesterol (test code = 2089-1) 44 60-130 L [facility] Ganycefqyca5311-52-40 06:37:00* Test Item Value Reference Range Interpretation Comments HDL Cholesterol (test code = 2085-9) 50 40-60 [facility]Ch[facility]/HDL Lqniw1992-97-06 06:37:00 * Test Item Value Reference Range Interpretation Comments Cholesterol/HDL Ratio (test code = 9830-1) 2.4 3.0-3.6 L [facility] TylerTriglycerides Ratgd6575-95-88 06:37:00* Test Item Value Reference Range Interpretation Comments Triglycerides Level (test code = 2571-8) 124 0-149 [facility] TylerCh[facility] Yfnqo1567-62-83 06:37:00* Test Item Value Reference Range Interpretation Comments Cholesterol Level (test code = 2093-3) 119 0-199 Less than 200 mg/dL Low Ccse801 - 239 mg/dL Borderline Etep354 m g/dl and greater High Risk [facility] TylerLDL Zmkavyyomvc3611-52-79 06:37:00* Test Item Value Reference Range Interpretation Comments LDL Cholesterol (test code = 2089-1) 44 60-[address] [facility] Fhrvpwczqwg2472-38-89 06:37:00* Test Item Value Reference Range Interpretation Comments HDL Cholesterol (test code = 2085-9) 50 40-60 [facility]/HDL Aaifw5950-90-15 06:37:00 * Test Item Value Reference Range Interpretation Comments Cholesterol/HDL Ratio (test code = 9830-1) 2.4 3.0-3.6 L [facility] TylerTriglycerides Jatpi8274-98-18 06:37:00* Test Item Value Reference Range Interpretation Comments Triglycerides Level (test code = 2571-8) 124 0-149 [facility] TylerCh[facility] Wtakl0206-95-11 06:37:00* Test Item Value Reference Range Interpretation Comments Cholesterol Level (test code = 2093-3) 119 0-199 Less than 200 mg/dL Low Fwkb984 - 239 mg/dL Borderline Vlqb101 m g/dl and greater High Risk [facility] TylerLDL Qleiejwswnt6997-09-95 06:37:00* Test Item Value Reference Range Interpretation Comments LDL Cholesterol (test code = 2089-1) 44 60-[address] [facility] Zylkeihyfgz4448-12-90 06:37:00* Test Item Value Reference Range Interpretation Comments HDL Cholesterol (test code = 2085-9) 50 40-60 [facility]/HDL Mvqls4960-79-02 06:37:00 * Test Item Value Reference Range Interpretation Comments Cholesterol/HDL Ratio (test code = 9830-1) 2.4 3.0-3.6 L [facility] TylerTriglycerides Snaad9688-33-96 06:37:00* Test Item Value Reference Range Interpretation Comments Triglycerides Level (test code = 2571-8) 124 0-149 [facility] TylerCh[facility] Fzmry0104-09-83 06:37:00* Test Item Value Reference Range Interpretation Comments Cholesterol Level (test code = 2093-3) 119 0-199 Less than 200 mg/dL Low Qgkz328 - 239 mg/dL Borderline Dtrf160 m g/dl and greater High Risk [facility] TylerLDL Ffnwyggtbuf3428-02-53 06:37:00* Test Item Value Reference Range Interpretation Comments LDL Cholesterol (test code = 2089-1) 44 60-[address] [facility] Tqrvwjhicaj6894-56-49 06:37:00* Test Item Value Reference Range Interpretation Comments HDL Cholesterol (test code = 2085-9) 50 40-60 [facility]/HDL Xribu4980-43-83 06:37:00 * Test Item Value Reference Range Interpretation Comments Cholesterol/HDL Ratio (test code = 9830-1) 2.4 3.0-3.6 L [facility] TylerTr[facility]lycerides Ospfq2725-13-32 06:37:00* Test Item Value Reference Range Interpretation Comments Triglycerides Level (test code = 2571-8) 124 0-149 [facility] TylerCholesterol Bwnfo6877-17-50 06:37:00* Test Item Value Reference Range Interpretation Comments Cholesterol Level (test code = 2093-3) 119 0-199 Less than 200 mg/dL Low Qcwg638 - 239 mg/dL Borderline Jlyh562 m g/dl and greater High Risk [facility] TylerLDL Zkrojyjeivw2470-13-93 06:37:00* Test Item Value Reference Range Interpretation Comments LDL Cholesterol (test code = 2089-1) 44 60-[address] [facility] Aihgelnxzbb5130-06-85 06:37:00* Test Item Value Reference Range Interpretation Comments HDL Cholesterol (test code = 2085-9) 50 40-60 [facility] Tyler[facility]/HDL Afskl5408-56-19 06:37:00 * Test Item Value Reference Range Interpretation Comments Cholesterol/HDL Ratio (test code = 9830-1) 2.4 3.0-3.6 L [facility] TylerTriglycerides Zlebf3474-90-88 06:37:00* Test Item Value Reference Range Interpretation Comments Triglycerides Level (test code = 2571-8) 124 0-149 [facility] TylerCh[facility] Yhkpb9625-19-60 06:37:00* Test Item Value Reference Range Interpretation Comments Cholesterol Level (test code = 2093-3) 119 0-199 Less than 200 mg/dL Low Azyn673 - 239 mg/dL Borderline Fbzj463 m g/dl and greater High Risk [facility] TylerLDL Nofapqfzsgv9621-91-67 06:37:00* Test Item Value Reference Range Interpretation Comments LDL Cholesterol (test code = 2089-1) 44 60-[address] [facility] Acrwmwmthpx5098-75-75 06:37:00* Test Item Value Reference Range Interpretation Comments HDL Cholesterol (test code = 2085-9) 50 40-60 [facility]/HDL Nlmym8421-62-99 06:37:00 * Test Item Value Reference Range Interpretation Comments Cholesterol/HDL Ratio (test code = 9830-1) 2.4 3.0-3.6 L [facility] TylerThyroid Stimulating Hormone (TSH) 2018-02-26 12:33:00* Test Item Value Reference Range Interpretation Comments Thyroid Stimulating Hormone (TSH) (test code = 82260-9) 7.144 0.350-4.940 H [facility] TylerThyroid Stimulating Hormone (TSH) 2018-02-26 12:33:00* Test Item Value Reference Range Interpretation Comments Thyroid Stimulating Hormone (TSH) (test code = 84083-3) 7.144 0.350-4.940 H [facility] TylerThyroid Stimulating Hormone (TSH) 2018-02-26 12:33:00* Test Item Value Reference Range Interpretation Comments Thyroid Stimulating Hormone (TSH) (test code = 70042-6) 7.144 0.350-4.940 H [facility] Tyler[facility]roid Stimulating Hormone (TSH) 2018-02-26 12:33:00* Test Item Value Reference Range Interpretation Comments Thyroid Stimulating Hormone (TSH) (test code = 06939-2) 7.144 0.350-4.940 H [facility] Tyler[facility]roid Stimulating Hormone (TSH) 2018-02-26 12:33:00* Test Item Value Reference Range Interpretation Comments Thyroid Stimulating Hormone (TSH) (test code = 93441-1) 7.144 0.350-4.940 H [facility] TylerUric Lafc3000-92-93 12:10:00* Test Item Value Reference Range Interpretation Comments Uric Acid (test code = 3084-1) 5.7 2.6-8.0 [facility] TylerPhosphorus Vmgab0881-23-24 12:10:00* Test Item Value Reference Range Interpretation Comments Phosphorus Level (test code = PQE3080) 3.5 2.3-4.7 [facility] Tyler[facility] Ptoy5034-77-69 12:10:00* Test Item Value Reference Range Interpretation Comments Uric Acid (test code = 3084-1) 5.7 2.6-8.0 [facility] TylerPhosphorus Mxdyi0688-22-02 12:10:00* Test Item Value Reference Range Interpretation Comments Phosphorus Level (test code = GEO1315) 3.5 2.3-4.7 [facility] Tyler[facility] Mjpf5258-85-71 12:10:00* Test Item Value Reference Range Interpretation Comments Uric Acid (test code = 3084-1) 5.7 2.6-8.0 [facility] TylerPh[facility]orus Rmybl2295-92-28 12:10:00* Test Item Value Reference Range Interpretation Comments Phosphorus Level (test code = XLG0952) 3.5 2.3-4.7 [facility] Tyler[facility] Tvfj1413-59-01 12:10:00* Test Item Value Reference Range Interpretation Comments Uric Acid (test code = 3084-1) 5.7 2.6-8.0 [facility] TylerPhosphorus Orwpf8042-56-20 12:10:00* Test Item Value Reference Range Interpretation Comments Phosphorus Level (test code = VJW8813) 3.5 2.3-4.7 [facility] Tyler[facility] Mfki2691-94-30 12:10:00* Test Item Value Reference Range Interpretation Comments Uric Acid (test code = 3084-1) 5.7 2.6-8.0 [facility] TylerPhosphorus Siolk5760-09-17 12:10:00* Test Item Value Reference Range Interpretation Comments Phosphorus Level (test code = XQG6272) 3.5 2.3-4.7 [facility] Tyler[facility] Svhk9812-73-70 12:10:00* Test Item Value Reference Range Interpretation Comments Uric Acid (test code = 3084-1) 5.7 2.6-8.0 [facility] TylerPhosphorus Wxuen1203-66-75 12:10:00* Test Item Value Reference Range Interpretation Comments Phosphorus Level (test code = UDD5684) 3.5 2.3-4.7 [facility] Tyler[facility] Sczdb6719-02-40 12:10:00* Test Item Value Reference Range Interpretation Comments Phosphorus Level (test code = KPY6019) 3.5 2.3-4.7 [facility] TylerPh[facility] Tbpim3473-99-90 12:10:00* Test Item Value Reference Range Interpretation Comments Phosphorus Level (test code = USL4855) 3.5 2.3-4.7 [facility] TylerPhosphorus Jqoco3181-54-10 12:10:00* Test Item Value Reference Range Interpretation Comments Phosphorus Level (test code = GHE6394) 3.5 2.3-4.7 [facility] Tyler[facility] Rmeqp0017-09-20 12:10:00* Test Item Value Reference Range Interpretation Comments Phosphorus Level (test code = DVM9771) 3.5 2.3-4.7 [facility] SINGLE (PORTABLE)2018-02-26 06:10:00 [facility] [address] [place] [address] Patient Name: MOJGAN CUMMINGS MR #: [id number] : 1950 Age/Sex: 68/F Req #: [id number] Adm Physician: ILAN STEIN MD Ordered by: BALBIR BARDALES MD Report #: [id number] Location: ICU Room/Bed: ICU [facility] Procedure: [id number] DX/CHEST SINGLE (PORTABLE) Exam Date: 02/26/18 Exam [...] COPY TO: BALBIR BARDALES MD CT CHEST R1332-52-10 17:07:00 [facility] [address] [address] Patient Name: MOJGAN CUMMINGS MR #: [id number] : 1950 Age/Sex: 68/F Req #: [id number] Adm Physician: ILAN STEIN MD Ordered by: NATHANIEL ROMERO MD Report #: [id number] Location: ICU Room/Bed: ICU [facility] Procedure: [id number] CT/CT CHES T W Exam Date: 02/25/18 [...] on 02/25/181728 COPY TO: NATHANIEL ROMERO MD Vitamin B12 Jmmig1187-21-74 07:49:00* Test Item Value Reference Range Interpretation Comments Vitamin B12 Level (test code = 75455-8) 613 213816 [facility] Tyler[facility]2018-06-09 07:49:00* Test Item Value Reference Range Interpretation Comments Folate (test code = 2284-8) 13.3 7.0-15.4 [facility] TylerVitamin B12 Mkigg3913-28-16 07:49:00* Test Item Value Reference Range Interpretation Comments Vitamin B12 Level (test code = 72372-4) 638 213816 [facility] Tyler[facility]2018-06-09 07:49:00* Test Item Value Reference Range Interpretation Comments Folate (test code = 2284-8) 13.3 7.0-15.4 [facility] Tyler[facility]it[facility] B12 Hnmqv2844-31-57 07:49:00* Test Item Value Reference Range Interpretation Comments Vitamin B12 Level (test code = 73529-2) 638 213-816 [facility] Tyler[facility]2018-06-09 07:49:00* Test Item Value Reference Range Interpretation Comments Folate (test code = 2284-8) 13.3 7.0-15.4 [facility] Tyler[facility] B12 Uyzuj6344-73-93 07:49:00* Test Item Value Reference Range Interpretation Comments Vitamin B12 Level (test code = 60879-2) 638 213-816 [facility] TylerF[facility]2018-06-09 07:49:00* Test Item Value Reference Range Interpretation Comments Folate (test code = 2284-8) 13.3 7.0-15.4 [facility] Tyler[facility] B12 Pqjmx9990-01-25 07:49:00* Test Item Value Reference Range Interpretation Comments Vitamin B12 Level (test code = 65440-7) 638 213-816 [facility] Tyler[facility]2018-06-09 07:49:00* Test Item Value Reference Range Interpretation Comments Folate (test code = 2284-8) 13.3 7.0-15.4 [facility] Tyler[facility]12 Wlwkq4164-25-54 07:49:00* Test Item Value Reference Range Interpretation Comments Vitamin B12 Level (test code = 79987-1) 638 213-816 [facility] Tyler[facility]2018-06-09 07:49:00* Test Item Value Reference Range Interpretation Comments Folate (test code = 2284-8) 13.3 7.0-15.4 [facility] TylerV[facility] B12 Fosnk9085-24-87 07:49:00* Test Item Value Reference Range Interpretation Comments Vitamin B12 Level (test code = 39972-2) 638 213-816 [facility] TylerF[facility]2018-06-09 07:49:00* Test Item Value Reference Range Interpretation Comments Folate (test code = 2284-8) 13.3 7.0-15.4 [facility] Tyler[facility] B12 Vepmo2406-57-86 07:49:00* Test Item Value Reference Range Interpretation Comments Vitamin B12 Level (test code = 54117-3) 638 213-816 [facility] TylerF[facility]2018-06-09 07:49:00* Test Item Value Reference Range Interpretation Comments Folate (test code = 2284-8) 13.3 7.0-15.4 [facility]2018-06-09 07:21:00* Test Item Value Reference Range Interpretation Comments Large Platelets (test code = 5908-9) [facility]2018-06-09 07:21:00* Test Item Value Reference Range Interpretation Comments Large Platelets (test code = 5908-9) [facility]2018-06-09 07:21:00* Test Item Value Reference Range Interpretation Comments Large Platelets (test code = 5908-9) [facility]2018-06-09 07:21:00* Test Item Value Reference Range Interpretation Comments Large Platelets (test code = 5908-9) [facility]2018-06-09 07:21:00* Test Item Value Reference Range Interpretation Comments Large Platelets (test code = 5908-9) [facility]2018-06-09 07:21:00* Test Item Value Reference Range Interpretation Comments Large Platelets (test code = 5908-9) [facility]2018-06-09 07:21:00* Test Item Value Reference Range Interpretation Comments Large Platelets (test code = 5908-9) [facility]2018-06-09 07:21:00* Test Item Value Reference Range Interpretation Comments Large Platelets (test code = 5908-9) [facility]2018-06-09 07:21:00* Test Item Value Reference Range Interpretation Comments Large Platelets (test code = 5908-9) [facility]2018-06-09 07:21:00* Test Item Value Reference Range Interpretation Comments Large Platelets (test code = 5908-9) [facility] Test Item Value Reference Range Interpretation Comments Ferritin (test code = 2276-4) 158.87 4.63-204.00 [facility] Aumbwgnkz9599-94-17 07:04:00* Test Item Value Reference Range Interpretation Comments Free Thyroxine (test code = 3024-7) 0.76 0.9-1.8 L [facility]2018-06-09 07:04:00* Test Item Value Reference Range Interpretation Comments Ferritin (test code = 2276-4) 158.87 4.63-204.00 [facility] Qywhgkmkv7059-69-78 07:04:00* Test Item Value Reference Range Interpretation Comments Free Thyroxine (test code = 3024-7) 0.76 0.9-1.8 L [facility]2018-06-09 07:04:00* Test Item Value Reference Range Interpretation Comments Ferritin (test code = 2276-4) 158.87 4.63-204.00 [facility] Qwhddbart8812-58-36 07:04:00* Test Item Value Reference Range Interpretation Comments Free Thyroxine (test code = 3024-7) 0.76 0.9-1.8 L [facility]2018-06-09 07:04:00* Test Item Value Reference Range Interpretation Comments Ferritin (test code = 2276-4) 158.87 4.63-204.00 [facility] Qrlqqcnqp0246-88-88 07:04:00* Test Item Value Reference Range Interpretation Comments Free Thyroxine (test code = 3024-7) 0.76 0.9-1.8 L [facility]2018-06-09 07:04:00* Test Item Value Reference Range Interpretation Comments Ferritin (test code = 2276-4) 158.87 4.63-204.00 [facility] Mbfvsdpwz6079-49-71 07:04:00* Test Item Value Reference Range Interpretation Comments Free Thyroxine (test code = 3024-7) 0.76 0.9-1.8 L [facility]2018-06-09 07:04:00* Test Item Value Reference Range Interpretation Comments Ferritin (test code = 2276-4) 158.87 4.63-204.00 [facility]2018-06-09 07:04:00* Test Item Value Reference Range Interpretation Comments Ferritin (test code = 2276-4) 158.87 4.63-204.00 [facility]2018-06-09 07:04:00* Test Item Value Reference Range Interpretation Comments Ferritin (test code = 2276-4) 158.87 4.63-204.00 [facility] Tyler[facility] Yubugl9951-52-50 07:02:00* Test Item Value Reference Range Interpretation Comments Creatine Kinase (test code = 2157-6) 7 29-168 L [facility] TylerCreat[facility] Kinase PL3796-95-87 07:02:00* Test Item Value Reference Range Interpretation Comments Creatine Kinase MB (test code = 18940-6) 0.80 0-5.0 [facility] U8239-61-77 07:02:00* Test Item Value Reference Range Interpretation Comments Troponin I (test code = BKU3228) 0.007 0-0.300 [facility] Tyler[facility] Ypcwyi1174-22-43 07:02:00* Test Item Value Reference Range Interpretation Comments Creatine Kinase (test code = 2157-6) 7 29-168 L [facility] TylerCreat[facility] Kinase XC4164-30-33 07:02:00* Test Item Value Reference Range Interpretation Comments Creatine Kinase MB (test code = 12578-7) 0.80 0-5.0 [facility] H4955-64-25 07:02:00* Test Item Value Reference Range Interpretation Comments Troponin I (test code = JGJ2422) 0.007 0-0.300 [facility] Tyler[facility] Ksbzfr2878-81-89 07:02:00* Test Item Value Reference Range Interpretation Comments Creatine Kinase (test code = 2157-6) 7 29-168 L [facility] Tyler[facility] Kinase ZS3230-88-12 07:02:00* Test Item Value Reference Range Interpretation Comments Creatine Kinase MB (test code = 04386-3) 0.80 0-5.0 [place] 99632018-06-09 07:02:00* Test Item Value Reference Range Interpretation Comments Troponin I (test code = MKI3575) 0.007 0-0.300 [facility] Tyler[facility] Zpcyup6684-40-70 07:02:00* Test Item Value Reference Range Interpretation Comments Creatine Kinase (test code = 2157-6) 7 29-168 L [facility] TylerCreat[facility] Kinase WL3598-49-99 07:02:00* Test Item Value Reference Range Interpretation Comments Creatine Kinase MB (test code = 09427-8) 0.80 0-5.0 [place] [id number] 07:02:00* Test Item Value Reference Range Interpretation Comments Troponin I (test code = [id number]) 0.007 0-0.300 [facility] Ghvhku8328-23-17 07:02:00* Test Item Value Reference Range Interpretation Comments Creatine Kinase (test code = 2157-6) 7 29-168 L [facility] Kinase ER7339-12-47 07:02:00* Test Item Value Reference Range Interpretation Comments Creatine Kinase MB (test code = 32874-7) 0.80 0-5.0 [place] [id number] 07:02:00* Test Item Value Reference Range Interpretation Comments Troponin I (test code = [id number]) 0.007 0-0.300 [facility] Rburq0680-99-32 06:42:00* Test Item Value Reference Range Interpretation Comments Iron Level (test code = 2498-4) 30 50-170 L [facility] Iron Binding Nqrxszae4894-53-59 06:42:00* Test Item Value Reference Range Interpretation Comments Total Iron Binding Capacity (test code = 2500-7) 181 261-4 78 L [facility] Tyler[facility] Iron Yzdnkqudeb3379-77-15 06:42:00* Test Item Value Reference Range Interpretation Comments Percent Iron Saturation (test code = 2502-3) 17 15-50 [facility] Tyler[facility]2018-[facility] 06:42:00* Test Item Value Reference Range Interpretation Comments Transferrin (test code = 3034-6) 129 180-382 L [facility]2018-06-09 06:42:00* Test Item Value Reference Range Interpretation Comments Iron Level (test code = 2498-4) 30 50-170 L [facility] Iron Binding Aygukbcp9938-74-70 06:42:00* Test Item Value Reference Range Interpretation Comments Total Iron Binding Capacity (test code = 2500-7) 181 261-4 78 L [facility] Lsglkeinsq0956-61-66 06:42:00* Test Item Value Reference Range Interpretation Comments Percent Iron Saturation (test code = 2502-3) 17 -50 [facility]2018-06-09 06:42:00* Test Item Value Reference Range Interpretation Comments Transferrin (test code = 3034-6) 129 180-382 L [facility]2018-06-09 06:42:00* Test Item Value Reference Range Interpretation Comments Iron Level (test code = 2498-4) 30 50-170 L [facility] Iron Binding Xqeqowlf6444-04-57 06:42:00* Test Item Value Reference Range Interpretation Comments Total Iron Binding Capacity (test code = 2500-7) 181 261-4 78 L [facility] Zqgxkgqtuh6960-90-49 06:42:00* Test Item Value Reference Range Interpretation Comments Percent Iron Saturation (test code = 2502-3) 17 15-50 [facility] 06:42:00* Test Item Value Reference Range Interpretation Comments Transferrin (test code = 3034-6) 129 180-382 L [facility]2018-06-09 06:42:00* Test Item Value Reference Range Interpretation Comments Iron Level (test code = 2498-4) 30 50-170 L [facility] Iron Binding Rvshgavs8461-36-05 06:42:00* Test Item Value Reference Range Interpretation Comments Total Iron Binding Capacity (test code = 2500-7) 181 261-4 78 L [facility] Iron Qvhechyntz8619-93-15 06:42:00* Test Item Value Reference Range Interpretation Comments Percent Iron Saturation (test code = 2502-3) 17 15-50 [facility] 06:42:00* Test Item Value Reference Range Interpretation Comments Transferrin (test code = 3034-6) 129 180-382 L [facility]2018-06-09 06:42:00* Test Item Value Reference Range Interpretation Comments Iron Level (test code = 2498-4) 30 50-170 L [facility] Iron Binding Izzmqepk0003-96-98 06:42:00* Test Item Value Reference Range Interpretation Comments Total Iron Binding Capacity (test code = 2500-7) 181 261-4 78 L [facility] Iron Afouafdzcd2023-29-16 06:42:00* Test Item Value Reference Range Interpretation Comments Percent Iron Saturation (test code = 2502-3) 17 15-50 [facility]2018-06-09 06:42:00* Test Item Value Reference Range Interpretation Comments Transferrin (test code = 3034-6) 129 180-382 L [facility]2018-06-09 06:42:00* Test Item Value Reference Range Interpretation Comments Iron Level (test code = 2498-4) 30 50-170 L [facility] Iron Binding Uldlfmkw6392-18-51 06:42:00* Test Item Value Reference Range Interpretation Comments Total Iron Binding Capacity (test code = 2500-7) 181 261-4 78 L [facility] Iron Uilavzpzno5493-54-37 06:42:00* Test Item Value Reference Range Interpretation Comments Percent Iron Saturation (test code = 2502-3) 17 15-50 [facility] 06:42:00* Test Item Value Reference Range Interpretation Comments Transferrin (test code = 3034-6) 129 180-382 L [facility]2018-06-09 06:42:00* Test Item Value Reference Range Interpretation Comments Iron Level (test code = 2498-4) 30 50-170 L [facility] Iron Binding Ycvppmvc1937-26-81 06:42:00* Test Item Value Reference Range Interpretation Comments Total Iron Binding Capacity (test code = 2500-7) 181 261-4 78 L [facility] Iron Guuekmuygl7570-33-51 06:42:00* Test Item Value Reference Range Interpretation Comments Percent Iron Saturation (test code = 2502-3) 17 15-50 [facility] Tyler[facility]2018-06-09 06:42:00* Test Item Value Reference Range Interpretation Comments Transferrin (test code = 3034-6) 129 180-382 L [facility] Qblaa7535-10-30 06:42:00* Test Item Value Reference Range Interpretation Comments Iron Level (test code = 2498-4) 30 50-170 L [facility] Iron Binding Logkmjwb5482-64-33 06:42:00* Test Item Value Reference Range Interpretation Comments Total Iron Binding Capacity (test code = 2500-7) 181 261-4 78 L [facility] Iron Dclyxmpgrz9202-92-46 06:42:00* Test Item Value Reference Range Interpretation Comments Percent Iron Saturation (test code = 2502-3) 17 15-50 [facility]2018-06-09 06:42:00* Test Item Value Reference Range Interpretation Comments Transferrin (test code = 3034-6) 129 180-382 L [facility] TylerHemoglobin A1c Gywccif2880-73-92 06:16:00 * Test Item Value Reference Range Interpretation Comments Hemoglobin A1c Percent (test code = Hemoglobin A1c Percent) 5.6 4.0-7.0 [facility] A1c Knhwxym0571-94-39 06:16:00 * Test Item Value Reference Range Interpretation Comments Hemoglobin A1c Percent (test code = Hemoglobin A1c Percent) 5.6 4.0-7.0 [facility] A1c Uwmwcnb0809-72-45 06:16:00 * Test Item Value Reference Range Interpretation Comments Hemoglobin A1c Percent (test code = Hemoglobin A1c Percent) 5.6 4.0-7.0 [facility] Tyler[facility] A1c Uyejvtv7059-03-81 06:16:00 * Test Item Value Reference Range Interpretation Comments Hemoglobin A1c Percent (test code = Hemoglobin A1c Percent) 5.6 4.0-7.0 [facility] Tyler[facility] A[facility]c Qfxveyi0744-73-77 06:16:00 * Test Item Value Reference Range Interpretation Comments Hemoglobin A1c Percent (test code = Hemoglobin A1c Percent) 5.6 4.0-7.0 [facility] Tyler[facility] A1c Rqxcays7597-78-09 06:16:00 * Test Item Value Reference Range Interpretation Comments Hemoglobin A1c Percent (test code = Hemoglobin A1c Percent) 5.6 4.0-7.0 [facility] Tyler[facility] A1c Extezby9883-47-99 06:16:00 * Test Item Value Reference Range Interpretation Comments Hemoglobin A1c Percent (test code = Hemoglobin A1c Percent) 5.6 4.0-7.0 [facility] Tyler[facility] A1c Sfgggeo0451-03-11 06:16:00 * Test Item Value Reference Range Interpretation Comments Hemoglobin A1c Percent (test code = Hemoglobin A1c Percent) 5.6 4.0-7.0 [facility] Tyler[facility] A[facility]c Pnwbjcq3067-00-76 06:16:00 * Test Item Value Reference Range Interpretation Comments Hemoglobin A1c Percent (test code = Hemoglobin A1c Percent) 5.6 4.0-7.0 [facility] Tyler[facility] A[facility]c Jxndhpp5095-44-54 06:16:00 * Test Item Value Reference Range Interpretation Comments Hemoglobin A1c Percent (test code = Hemoglobin A1c Percent) 5.6 4.0-7.0 [facility] OMN5385-40-20 13:05:00* Test Item Value Reference Range Interpretation Comments Urine WBC (test code = 5821-4) 6-10 0-5 H [facility] QMF7807-40-80 13:05:00* Test Item Value Reference Range Interpretation Comments Urine RBC (test code = 99619-6) 0-5 0-5 [facility] Tzxgyrgq9055-20-77 13:05:00* Test Item Value Reference Range Interpretation Comments Urine Bacteria (test code = 02043-0) FEW NONE [facility] Epithelial Vnrew9252-76-69 13:05:00 * Test Item Value Reference Range Interpretation Comments Urine Epithelial Cells (test code = 15591-0) FEW NONE [facility] HLO9385-26-44 13:05:00* Test Item Value Reference Range Interpretation Comments Urine WBC (test code = 5821-4) 6-10 0-5 H [facility] UTL8376-95-85 13:05:00* Test Item Value Reference Range Interpretation Comments Urine RBC (test code = 73447-2) 0-5 0-5 [facility] Varvthkc0130-46-07 13:05:00* Test Item Value Reference Range Interpretation Comments Urine Bacteria (test code = 20143-2) FEW NONE [facility] Epithelial Iodqn4697-03-94 13:05:00 * Test Item Value Reference Range Interpretation Comments Urine Epithelial Cells (test code = 65394-3) FEW NONE [facility] JLH6306-96-30 13:05:00* Test Item Value Reference Range Interpretation Comments Urine WBC (test code = 5821-4) 6-10 0-5 H [facility] PGK0152-44-23 13:05:00* Test Item Value Reference Range Interpretation Comments Urine RBC (test code = 87057-3) 0-5 0-5 [facility] Wsmownuo6648-07-24 13:05:00* Test Item Value Reference Range Interpretation Comments Urine Bacteria (test code = 65928-5) FEW NONE [facility] Epithelial Gzlwr2942-38-46 13:05:00 * Test Item Value Reference Range Interpretation Comments Urine Epithelial Cells (test code = 75350-5) FEW NONE [facility] FBA9511-43-82 13:05:00* Test Item Value Reference Range Interpretation Comments Urine WBC (test code = 5821-4) 6-10 0-5 H [facility] KAE1741-93-92 13:05:00* Test Item Value Reference Range Interpretation Comments Urine RBC (test code = 78327-0) 0-5 0-5 [facility] Ysfjpayy0257-88-20 13:05:00* Test Item Value Reference Range Interpretation Comments Urine Bacteria (test code = 48055-7) FEW NONE [facility] Epithelial Kdahe9645-46-51 13:05:00 * Test Item Value Reference Range Interpretation Comments Urine Epithelial Cells (test code = 62566-0) FEW NONE [facility] QKN3619-27-35 13:05:00* Test Item Value Reference Range Interpretation Comments Urine WBC (test code = 5821-4) 6-10 0-5 H [facility] IQU1684-95-25 13:05:00* Test Item Value Reference Range Interpretation Comments Urine RBC (test code = 00564-6) 0-5 0-5 [facility] Xzzxypjd3059-28-74 13:05:00* Test Item Value Reference Range Interpretation Comments Urine Bacteria (test code = 60851-7) FEW NONE [facility] Epithelial Zuuhl7888-85-58 13:05:00 * Test Item Value Reference Range Interpretation Comments Urine Epithelial Cells (test code = 53245-9) FEW NONE [facility] LMH8303-27-89 13:05:00* Test Item Value Reference Range Interpretation Comments Urine WBC (test code = 5821-4) 6-10 0-5 H [facility] OUJ2733-79-49 13:05:00* Test Item Value Reference Range Interpretation Comments Urine RBC (test code = 99271-6) 0-5 0-5 [facility] Wfbmxwje8420-50-46 13:05:00* Test Item Value Reference Range Interpretation Comments Urine Bacteria (test code = 87303-5) FEW NONE [facility] Epithelial Rxaho6897-48-09 13:05:00 * Test Item Value Reference Range Interpretation Comments Urine Epithelial Cells (test code = 52856-2) FEW NONE [facility] Pifnc4343-26-59 12:58:00* Test Item Value Reference Range Interpretation Comments Urine Color (test code = 5778-6) YELLOW YELLOW [facility] Logiwhl9128-86-59 12:58:00* Test Item Value Reference Range Interpretation Comments Urine Clarity (test code = 82473-8) HAZY CLEAR [facility] Specific Uuzmhzu7432-87-58 12:58:00 * Test Item Value Reference Range Interpretation Comments Urine Specific [place] (test code = 5811-5) 1.005 1.010-1.02 5 L [facility] mW2933-51-69 12:58:00* Test Item Value Reference Range Interpretation Comments Urine pH (test code = 34529-3) 6 5-7 [facility] Leukocyte Vvjdlibg7196-06-02 12:58:00* Test Item Value Reference Range Interpretation Comments Urine Leukocyte Esterase (test code = 5799-2) TRACE NEGATIVE H [facility] Vjjbhlt1681-54-35 12:58:00* Test Item Value Reference Range Interpretation Comments Urine Nitrite (test code = 97797-7) NEGATIVE NEGATIVE [facility] Mwwwjez9547-77-72 12:58:00* Test Item Value Reference Range Interpretation Comments Urine Protein (test code = 5804-0) NEGATIVE NEGATIVE [facility] Glucose (UA)2018-02-24 12:58:00* Test Item Value Reference Range Interpretation Comments Urine Glucose (UA) (test code = 2349-9) NEGATIVE NEGATIVE [facility] Pyftsqs8093-63-51 12:58:00* Test Item Value Reference Range Interpretation Comments Urine Ketones (test code = 37612-4) NEGATIVE NEGATIVE [facility] Xsgaudrrbfai5556-48-91 12:58:00* Test Item Value Reference Range Interpretation Comments Urine Urobilinogen (test code = 56132-7) 0.2 0.2-1 [facility] Npgaydxyd3236-31-90 12:58:00* Test Item Value Reference Range Interpretation Comments Urine Bilirubin (test code = 1978-6) NEGATIVE NEGATIVE [facility] Rowbm0757-48-33 12:58:00* Test Item Value Reference Range Interpretation Comments Urine Blood (test code = 70813-1) NEGATIVE NEGATIVE [facility] Okaok4955-40-00 12:58:00* Test Item Value Reference Range Interpretation Comments Urine Color (test code = 5778-6) YELLOW YELLOW [facility] Vgvjioe7572-40-54 12:58:00* Test Item Value Reference Range Interpretation Comments Urine Clarity (test code = 83392-1) HAZY CLEAR [facility] Specific Igjhawq0867-48-28 12:58:00 * Test Item Value Reference Range Interpretation Comments Urine Specific [place] (test code = 5811-5) 1.005 1.010-1.02 5 L [facility] wU7283-87-43 12:58:00* Test Item Value Reference Range Interpretation Comments Urine pH (test code = 25027-7) 6 5-7 [facility] Leukocyte Tgqmuanq2689-58-72 12:58:00* Test Item Value Reference Range Interpretation Comments Urine Leukocyte Esterase (test code = 5799-2) TRACE NEGATIVE H [facility] Ganaohm5752-20-27 12:58:00* Test Item Value Reference Range Interpretation Comments Urine Nitrite (test code = 74002-8) NEGATIVE NEGATIVE [facility] Vaczeax6771-27-62 12:58:00* Test Item Value Reference Range Interpretation Comments Urine Protein (test code = 5804-0) NEGATIVE NEGATIVE [facility] Glucose (UA)2018-02-24 12:58:00* Test Item Value Reference Range Interpretation Comments Urine Glucose (UA) (test code = 2349-9) NEGATIVE NEGATIVE [facility] Uitrvht8579-74-56 12:58:00* Test Item Value Reference Range Interpretation Comments Urine Ketones (test code = 31158-6) NEGATIVE NEGATIVE [facility] Hcxdooeqkplp8595-03-54 12:58:00* Test Item Value Reference Range Interpretation Comments Urine Urobilinogen (test code = 93165-5) 0.2 0.2-1 [facility] Xmlirvxpa3144-41-62 12:58:00* Test Item Value Reference Range Interpretation Comments Urine Bilirubin (test code = 1978-6) NEGATIVE NEGATIVE [facility] Yjkmu4028-01-91 12:58:00* Test Item Value Reference Range Interpretation Comments Urine Blood (test code = 44641-3) NEGATIVE NEGATIVE [facility] Glfdu1711-35-91 12:58:00* Test Item Value Reference Range Interpretation Comments Urine Color (test code = 5778-6) YELLOW YELLOW [facility] Fzlitve0319-89-79 12:58:00* Test Item Value Reference Range Interpretation Comments Urine Clarity (test code = 96355-2) HAZY CLEAR [facility] Specific Qthadmp7591-95-75 12:58:00 * Test Item Value Reference Range Interpretation Comments Urine Specific [place] (test code = 5811-5) 1.005 1.010-1.02 5 L [facility] pP0927-62-23 12:58:00* Test Item Value Reference Range Interpretation Comments Urine pH (test code = 79811-2) 6 5-7 [facility] Leukocyte Heofqnjs2735-47-87 12:58:00* Test Item Value Reference Range Interpretation Comments Urine Leukocyte Esterase (test code = 5799-2) TRACE NEGATIVE H [facility] Lnburlc3533-54-97 12:58:00* Test Item Value Reference Range Interpretation Comments Urine Nitrite (test code = 93424-2) NEGATIVE NEGATIVE [facility] Jqzjyef2364-25-61 12:58:00* Test Item Value Reference Range Interpretation Comments Urine Protein (test code = 5804-0) NEGATIVE NEGATIVE [facility] Glucose (UA)2018-02-24 12:58:00* Test Item Value Reference Range Interpretation Comments Urine Glucose (UA) (test code = 2349-9) NEGATIVE NEGATIVE [facility] Gcwquch5727-87-32 12:58:00* Test Item Value Reference Range Interpretation Comments Urine Ketones (test code = 65872-4) NEGATIVE NEGATIVE [facility] Gmxgzmirzixd1539-13-12 12:58:00* Test Item Value Reference Range Interpretation Comments Urine Urobilinogen (test code = 42439-5) 0.2 0.2-1 [facility] Ogagsbmrx6865-17-13 12:58:00* Test Item Value Reference Range Interpretation Comments Urine Bilirubin (test code = 1978-6) NEGATIVE NEGATIVE [facility] Yqsws0658-27-31 12:58:00* Test Item Value Reference Range Interpretation Comments Urine Blood (test code = 09756-8) NEGATIVE NEGATIVE [facility] Ffvqu7236-64-19 12:58:00* Test Item Value Reference Range Interpretation Comments Urine Color (test code = 5778-6) YELLOW YELLOW [facility] Fpmgocc9802-12-73 12:58:00* Test Item Value Reference Range Interpretation Comments Urine Clarity (test code = 48580-9) HAZY CLEAR [facility] Specific Byxbabs2441-56-97 12:58:00 * Test Item Value Reference Range Interpretation Comments Urine Specific [place] (test code = 5811-5) 1.005 1.010-1.02 5 L [facility] iM4851-44-75 12:58:00* Test Item Value Reference Range Interpretation Comments Urine pH (test code = 49370-3) 6 5-7 [facility] Leukocyte Zulisqrg8226-71-11 12:58:00* Test Item Value Reference Range Interpretation Comments Urine Leukocyte Esterase (test code = 5799-2) TRACE NEGATIVE H [facility] Frqdobk0150-88-51 12:58:00* Test Item Value Reference Range Interpretation Comments Urine Nitrite (test code = 99242-2) NEGATIVE NEGATIVE [facility] Rqadhqg4498-13-65 12:58:00* Test Item Value Reference Range Interpretation Comments Urine Protein (test code = 5804-0) NEGATIVE NEGATIVE [facility] Glucose (UA)2018-02-24 12:58:00* Test Item Value Reference Range Interpretation Comments Urine Glucose (UA) (test code = 2349-9) NEGATIVE NEGATIVE [facility] Fbmurfq5465-90-48 12:58:00* Test Item Value Reference Range Interpretation Comments Urine Ketones (test code = 23576-2) NEGATIVE NEGATIVE [facility] Fkhpzaxwsrle5642-66-82 12:58:00* Test Item Value Reference Range Interpretation Comments Urine Urobilinogen (test code = 24230-2) 0.2 0.2-1 [facility] Moecyxbta5617-22-35 12:58:00* Test Item Value Reference Range Interpretation Comments Urine Bilirubin (test code = 1978-6) NEGATIVE NEGATIVE [facility] Wtooj5097-18-46 12:58:00* Test Item Value Reference Range Interpretation Comments Urine Blood (test code = 13931-0) NEGATIVE NEGATIVE [facility] Gmyyo8318-97-20 12:58:00* Test Item Value Reference Range Interpretation Comments Urine Color (test code = 5778-6) YELLOW YELLOW [facility] Ooiwmmz0943-91-63 12:58:00* Test Item Value Reference Range Interpretation Comments Urine Clarity (test code = 95302-7) HAZY CLEAR [facility] Specific Yelqkgp7419-67-20 12:58:00 * Test Item Value Reference Range Interpretation Comments Urine Specific [place] (test code = 5811-5) 1.005 1.010-1.02 5 L [facility] xV1086-03-35 12:58:00* Test Item Value Reference Range Interpretation Comments Urine pH (test code = 10203-7) 6 5-7 [facility] Leukocyte Qdmzduhv9583-44-16 12:58:00* Test Item Value Reference Range Interpretation Comments Urine Leukocyte Esterase (test code = 5799-2) TRACE NEGATIVE H [facility] Zfyfvpe6875-13-46 12:58:00* Test Item Value Reference Range Interpretation Comments Urine Nitrite (test code = 08073-5) NEGATIVE NEGATIVE [facility] Wzrjzmg4783-51-17 12:58:00* Test Item Value Reference Range Interpretation Comments Urine Protein (test code = 5804-0) NEGATIVE NEGATIVE [facility] Glucose (UA)2018-02-24 12:58:00* Test Item Value Reference Range Interpretation Comments Urine Glucose (UA) (test code = 2349-9) NEGATIVE NEGATIVE [facility] Kejetqb9217-96-88 12:58:00* Test Item Value Reference Range Interpretation Comments Urine Ketones (test code = 87972-9) NEGATIVE NEGATIVE [facility] Avreydapotys1622-62-01 12:58:00* Test Item Value Reference Range Interpretation Comments Urine Urobilinogen (test code = 08806-0) 0.2 0.2-1 [facility] Cfpuobwmm7678-24-79 12:58:00* Test Item Value Reference Range Interpretation Comments Urine Bilirubin (test code = 1978-6) NEGATIVE NEGATIVE [facility] Gaqjs9883-36-83 12:58:00* Test Item Value Reference Range Interpretation Comments Urine Blood (test code = 62283-2) NEGATIVE NEGATIVE [facility] Dgzft2107-05-32 12:58:00* Test Item Value Reference Range Interpretation Comments Urine Color (test code = 5778-6) YELLOW YELLOW [facility] Tyler[facility] Kcygkhj0937-47-26 12:58:00* Test Item Value Reference Range Interpretation Comments Urine Clarity (test code = 14462-9) HAZY CLEAR [facility] TylerU[facility] Specific Yaovetq8329-29-25 12:58:00 * Test Item Value Reference Range Interpretation Comments Urine Specific [place] (test code = 5811-5) 1.005 1.010-1.02 5 L [facility] TylerU[facility] [id number] 12:58:00* Test Item Value Reference Range Interpretation Comments Urine pH (test code = 14497-6) 6 5-7 [facility] Leukocyte Juotcplm4702-11-95 12:58:00* Test Item Value Reference Range Interpretation Comments Urine Leukocyte Esterase (test code = 5799-2) TRACE NEGATIVE H [facility] TylerU[facility] Qptnjni7692-90-62 12:58:00* Test Item Value Reference Range Interpretation Comments Urine Nitrite (test code = 83978-9) NEGATIVE NEGATIVE [facility] Tyler[facility] Aclytez2537-80-40 12:58:00* Test Item Value Reference Range Interpretation Comments Urine Protein (test code = 5804-0) NEGATIVE NEGATIVE [facility] Tyler[facility] Glucose (UA)2018-02-24 12:58:00* Test Item Value Reference Range Interpretation Comments Urine Glucose (UA) (test code = 2349-9) NEGATIVE NEGATIVE [facility] Tyler[facility] Qrqceko0915-97-54 12:58:00* Test Item Value Reference Range Interpretation Comments Urine Ketones (test code = 35384-9) NEGATIVE NEGATIVE [facility] Tyler[facility] Iggaejgaurpr2350-75-35 12:58:00* Test Item Value Reference Range Interpretation Comments Urine Urobilinogen (test code = 05994-8) 0.2 0.2-1 [facility] Tyler[facility] Yzpdnowfk7563-43-72 12:58:00* Test Item Value Reference Range Interpretation Comments Urine Bilirubin (test code = 1978-6) NEGATIVE NEGATIVE [facility] Tyler[facility] Rfryx8028-81-19 12:58:00* Test Item Value Reference Range Interpretation Comments Urine Blood (test code = 88179-0) NEGATIVE NEGATIVE [facility] Tyler[facility] Natriuretic Iemayom2046-46-82 11:04:00* Test Item Value Reference Range Interpretation Comments B-Type Natriuretic Peptide (test code = 01828-8) 97.8 0-100 [facility] Tyler[facility] Natriuretic Mihydoe4032-79-30 11:04:00* Test Item Value Reference Range Interpretation Comments B-Type Natriuretic Peptide (test code = 20729-3) 97.8 0-100 [facility] Tyler[facility] Natriuretic Ygihgof2447-51-66 11:04:00* Test Item Value Reference Range Interpretation Comments B-Type Natriuretic Peptide (test code = 01964-8) 97.8 0-100 [facility] TylerTotal Ozvqzkcjo7658-17-47 10:51:00* Test Item Value Reference Range Interpretation Comments Total Bilirubin (test code = 1975-2) 0.3 0.2-1.2 [facility] TylerAspartate Amino Transf (AST/SGOT) 2018-02-24 10:51:00* Test Item Value Reference Range Interpretation Comments Aspartate Amino Transf (AST/SGOT) (test code = Aspartate Amino Transf (AST/SGOT)) 16 5-34 [facility] TylerAlanine Aminotransferase (ALT/SGPT) 2018-02-24 10:51:00* Test Item Value Reference Range Interpretation Comments Alanine Aminotransferase (ALT/SGPT) (test code = 1742-6) 10 0-55 [facility] TylerTotal Ptfcwya6891-78-02 10:51:00* Test Item Value Reference Range Interpretation Comments Total Protein (test code = 2885-2) 6.0 6.5-8.1 L [facility] TylerAlbumin2018-06-08 10:51:00* Test Item Value Reference Range Interpretation Comments Albumin (test code = 1751-7) 2.8 3.5-5.0 L [facility] TylerGlobulin2018-06-08 10:51:00* Test Item Value Reference Range Interpretation Comments Globulin (test code = 54688-8) 3.2 2.3-3.5 [facility] TylerAlbumin/Globulin Yafzi0406-67-17 10:51:00 * Test Item Value Reference Range Interpretation Comments Albumin/Globulin Ratio (test code = 1759-0) 0.9 0.8-2.0 [facility] TylerAlkaline Bvechnrnajt9507-38-27 10:51:00* Test Item Value Reference Range Interpretation Comments Alkaline Phosphatase (test code = 6768-6) 85 40-150 [facility] TylerLactic Acid Opuws2192-07-25 10:46:00* Test Item Value Reference Range Interpretation Comments Lactic Acid Level (test code = Lactic Acid Level) 10.7 4.5- 19.8 [facility] TylerLactic Acid Fsvkl3569-51-68 10:46:00* Test Item Value Reference Range Interpretation Comments Lactic Acid Level (test code = Lactic Acid Level) 10.7 4.5- 19.8 [facility] TylerLactic Acid Wsrka1676-34-24 10:46:00* Test Item Value Reference Range Interpretation Comments Lactic Acid Level (test code = Lactic Acid Level) 10.7 4.5- 19.8 [facility] TylerLactic Acid Rndxf7967-10-87 10:46:00* Test Item Value Reference Range Interpretation Comments Lactic Acid Level (test code = Lactic Acid Level) 10.7 4.5- 19.8 [facility] TylerLactic Acid Ehmzc1744-28-02 10:46:00* Test Item Value Reference Range Interpretation Comments Lactic Acid Level (test code = Lactic Acid Level) 10.7 4.5- 19.8 [facility] TylerProthrombin Zqdi0131-08-71 10:42:00* Test Item Value Reference Range Interpretation Comments Prothrombin Time (test code = 5902-2) 13.0 11.9-14.5 [facility] TylerProthromb Time International Ratio 2018-02-24 10:42:00* Test Item Value Reference Range Interpretation Comments Prothromb Time International Ratio (test code = 6301-6) 1.06 Oral Anticoagulant Therapy INR Values:1. Low Intensity Therapy 1.5 - 2.02 . Moderate Intensity Therapy 2.0 - 3.03. High Intensity Therapy(1) 2.5 - 3. 54. High Intensity Therapy(2) 3.0 - 4.05. Panic Value INR > 5.0 [facility] TylerActivated Partial Thromboplast Time 2018-02-24 10:42:00* Test Item Value Reference Range Interpretation Comments Activated Partial Thromboplast Time (test code = 09828-6) 26.7 23.8-35.5 [facility] TylerCHEST SINGLE (PORTABLE)2018-02-24 10:40:00 [facility] [address] [address] Patient Name: MOJGAN CUMMINGS MR #: [id number] : 1950 Age/Sex: 68/F Req #: [id number] Adm Physician: Ordered by: ENRRIQUE TSAI MD Report #: [id number] Location: ER Room/Bed: Procedure: [id number] DX/CHEST SINGLE (PORTABLE) E xam Date: 02/24/18 [...] 02/24/18 1040 COPY TO: ENRRIQUE TSAI MD Blood Culture 2018-02-14 07:58:00* Test Item Value Reference Range Interpretation Comments Blood Culture (test code = 600-7) [facility]ism: [facility]CCUS [facility] Zaisuqp1657-32-71 07:58:00* Test Item Value Reference Range Interpretation Comments Blood Culture (test code = 600-7) Organism: STAPHYLOCOCCUS LUGDUNEN [facility] Kqeryio8759-63-17 07:58:00* Test Item Value Reference Range Interpretation Comments Blood Culture (test code = 600-7) Organism: STAPHYLOCOCCUS LUGDUNEN [facility] Mgeicgw0935-34-46 07:58:00* Test Item Value Reference Range Interpretation Comments Blood Culture (test code = 600-7) Organism: STAPHYLOCOCCUS LUGDUNEN [facility] Yemechp7978-63-50 07:58:00* Test Item Value Reference Range Interpretation Comments Blood Culture (test code = 600-7) Organism: STAPHYLOCOCCUS [facility]GDUNEN [facility] Total Cells Counted 2018-02-10 20:03:00* Test Item Value Reference Range Interpretation Comments Differential Total Cells Counted (test code = Differjesus tial Total Cells Counted) 100 [facility] TylerNeutrophils % (Manual)2018-02-10 20:03:00 * Test Item Value Reference Range Interpretation Comments Neutrophils % (Manual) (test code = 65980-4) 83 40-74 H [facility] TylerLymphocytes % (Manual)2018-02-10 20:03:00 * Test Item Value Reference Range Interpretation Comments Lymphocytes % (Manual) (test code = 737-7) 8 19-48 L [facility] TylerMonocytes % (Manual)2018-02-10 20:03:00* Test Item Value Reference Range Interpretation Comments Monocytes % (Manual) (test code = 744-3) 9 3.4-9.0 [facility] TylerPlatelet Wrjoxevm0173-01-71 20:03:00* Test Item Value Reference Range Interpretation Comments Platelet Estimate (test code = 69990-6) ADEQUATE [facility] TylerPlatelet Morphology Lmxazhs5383-38-52 20:03:00* Test Item Value Reference Range Interpretation Comments Platelet Morphology Comment (test code = 90256-2) NORMAL [facility] TylerHypochromasia2018-05-25 20:03:00* Test Item Value Reference Range Interpretation Comments Hypochromasia (test code = 728-6) SLIGHT [facility] TylerRed Cell Morphology Ixfdmop7638-48-66 20:03:00* Test Item Value Reference Range Interpretation Comments Red Cell Morphology Comment (test code = 6742-1) NORMAL [facility] TylerB-Type Natriuretic Recuvft0627-86-98 19:18:00* Test Item Value Reference Range Interpretation Comments B-Type Natriuretic Peptide (test code = 25414-9) 117.9 0-100 H [facility] TylerCreatine Kinase [id number] 19:12:00* Test Item Value Reference Range Interpretation Comments Creatine Kinase MB (test code = 93920-7) 1.50 0-5.0 [facility] TylerTroponin K7332-92-30 19:12:00* Test Item Value Reference Range Interpretation Comments Troponin I (test code = ZQB8047) 0.031 0-0.300 [facility] Stationodium Uarpf8297-36-03 19:04:00* Test Item Value Reference Range Interpretation Comments Sodium Level (test code = 2951-2) 132 136-145 L [facility] TylerPotassium Ohpbt0473-02-78 19:04:00* Test Item Value Reference Range Interpretation Comments Potassium Level (test code = 2823-3) 3.4 3.5-5.1 L [facility] TylerChloride Ohkwx1091-96-00 19:04:00* Test Item Value Reference Range Interpretation Comments Chloride Level (test code = 2075-0) 94 98-107 L [facility] TylerCarbon Dioxide Qhfat8733-76-86 19:04:00* Test Item Value Reference Range Interpretation Comments Carbon Dioxide Level (test code = 2028-9) 25 22-29 [facility] TylerAnion Nzg2136-06-53 19:04:00* Test Item Value Reference Range Interpretation Comments Anion Gap (test code = 25619-8) 16.4 8-16 H [facility] TylerBlood Urea Xamstfkl3178-55-00 19:04:00* Test Item Value Reference Range Interpretation Comments Blood Urea Nitrogen (test code = 3094-0) 16 7-26 [facility] TylerCreatinine2018-05-25 19:04:00* Test Item Value Reference Range Interpretation Comments Creatinine (test code = 2160-0) 0.74 0.57-1.11 [facility] TylerBUN/Creatinine Hxuiw1643-59-90 19:04:00* Test Item Value Reference Range Interpretation Comments BUN/Creatinine Ratio (test code = 3097-3) 22 03-13 [facility] TylerEstimat Glomerular Filtration Rate 2018-02-10 19:04:00* Test Item Value Reference Range Interpretation Comments Estimat Glomerular Filtration Rate (test code = 09708-4) 60- >60 Ranges were taken from the National Kidney Disease Education Program and the [facility] [employer] literature.Reference ranges:60 or greater: Hrmtgy91-54 ( for 3 consecutive months): Chronic kidney disease 15 or less: Kidney failureCHRISTUS [facility] – TylerGlucose Wgxdr4667-83-67 19:04:00* Test Item Value Reference Range Interpretation Comments Glucose Level (test code = APT4401) 189 74-118 H [facility] TylerCalcium Ijeuv3366-40-91 19:04:00* Test Item Value Reference Range Interpretation Comments Calcium Level (test code = 27898-3) 9.0 8.4-10.2 [facility] TylerTotal Gxhrsdpul8710-32-21 19:04:00* Test Item Value Reference Range Interpretation Comments Total Bilirubin (test code = 1975-2) 0.4 0.2-1.2 [facility] TylerAspartate Amino Transf (AST/SGOT) 2018-02-10 19:04:00* Test Item Value Reference Range Interpretation Comments Aspartate Amino Transf (AST/SGOT) (test code = Aspartate Amino Transf (AST/SGOT)) 12 5-34 [facility] TylerAlanine Aminotransferase (ALT/SGPT) 2018-02-10 19:04:00* Test Item Value Reference Range Interpretation Comments Alanine Aminotransferase (ALT/SGPT) (test code = 1742-6) 9 0-55 [facility] TylerTotal Vmpsbpo3835-27-42 19:04:00* Test Item Value Reference Range Interpretation Comments Total Protein (test code = 2885-2) 6.5 6.5-8.1 [facility] TylerAlbumin2018-05-25 19:04:00* Test Item Value Reference Range Interpretation Comments Albumin (test code = 1751-7) 2.6 3.5-5.0 L [facility] TylerGlobulin2018-05-25 19:04:00* Test Item Value Reference Range Interpretation Comments Globulin (test code = 49337-8) 3.9 2.3-3.5 H [facility] TylerAlbumin/Globulin Fkvqp1348-25-25 19:04:00 * Test Item Value Reference Range Interpretation Comments Albumin/Globulin Ratio (test code = 1759-0) 0.7 0.8-2.0 L [facility] TylerAlkaline Bsvekiigfmx7669-93-03 19:04:00* Test Item Value Reference Range Interpretation Comments Alkaline Phosphatase (test code = 6768-6) 85 40-150 [facility] TylerCreatine Lgbncz3510-89-34 19:04:00* Test Item Value Reference Range Interpretation Comments Creatine Kinase (test code = 2157-6) 11 29-168 L [facility] TylerProthrombin Entg0215-73-89 19:01:00* Test Item Value Reference Range Interpretation Comments Prothrombin Time (test code = 5902-2) 13.4 11.9-14.5 [facility] TylerProthromb Time International Ratio 2018-02-10 19:01:00* Test Item Value Reference Range Interpretation Comments Prothromb Time International Ratio (test code = 6301-6) 1.10 Oral Anticoagulant Therapy INR Values:1. Low Intensity Therapy 1.5 - 2.02 . Moderate Intensity Therapy 2.0 - 3.03. High Intensity Therapy(1) 2.5 - 3. 54. High Intensity Therapy(2) 3.0 - 4.05. Panic Value INR > 5.0 [facility] TylerActivated Partial Thromboplast Time 2018-02-10 19:01:00* Test Item Value Reference Range Interpretation Comments Activated Partial Thromboplast Time (test code = 99210-6) 29.9 23.8-35.5 [facility] TylerLactic Acid Ofzdn1210-70-77 18:57:00* Test Item Value Reference Range Interpretation Comments Lactic Acid Level (test code = Lactic Acid Level) 13.3 4.5- 19.8 [facility] TylerMixed Venous Blood mS1325-94-82 18:56:00 * Test Item Value Reference Range Interpretation Comments Mixed Venous Blood pH (test code = 19081-5) 7.447 7.32-7.42 [facility] HCI62305-74-28 18:56:00* Test Item Value Reference Range Interpretation Comments Mixed Venous Blood PCO2 (test code = 75339-3) 43.8 40-50 [facility] [id number] 18:56:00 * Test Item Value Reference Range Interpretation Comments Mixed Venous Blood PO2 (test code = 03342-2) 37 38-42 [facility] RTS00893-49-88 18:56:00* Test Item Value Reference Range Interpretation Comments Mixed Venous Blood HCO3 (test code = 26772-8) 30.2 22-26 [facility] Base Hgorhp1998-55-03 18:56:00* Test Item Value Reference Range Interpretation Comments Mixed Venous Blood Base Excess (test code = 52086-9) 6 - 5-3 H [facility] TylerMixed Venous Blood O2 Saturation 2018-02-10 18:56:00* Test Item Value Reference Range Interpretation Comments Mixed Venous Blood O2 Saturation (test code = 80489-3) 72 70-75 Reason for ABG: PT ARRIVED BY AMBULANCE C/O SOBTRACH COLLARSpO2 99% at 10 L/min on 40%.[facility] mW7025-89-52 18:56:00* Test Item Value Reference Range Interpretation Comments Mixed Venous Blood pH (test code = 55236-2) 7.447 7.32-7.42 H [facility] TylerMixed Venous Blood HVV97565-10-16 18:56:00* Test Item Value Reference Range Interpretation Comments Mixed Venous Blood PCO2 (test code = 89190-2) 43.8 40-50 [facility] TylerMixed Venous Blood [id number] 18:56:00 * Test Item Value Reference Range Interpretation Comments Mixed Venous Blood PO2 (test code = 08667-3) 37 38-42 [facility] HVY07734-37-72 18:56:00* Test Item Value Reference Range Interpretation Comments Mixed Venous Blood HCO3 (test code = 59045-3) 30.2 22-26 [facility] Base Takxoz2925-76-88 18:56:00* Test Item Value Reference Range Interpretation Comments Mixed Venous Blood Base Excess (test code = 49613-9) 6 - 5-3 [facility] O2 Saturation 2018-02-10 18:56:00* Test Item Value Reference Range Interpretation Comments Mixed Venous Blood O2 Saturation (test code = 67069-7) 72 70-75 Reason for ABG: PT ARRIVED BY AMBULANCE C/O SOBTRACH COLLARSpO2 99% at 10 L/min on 40%.[facility] [id number] 18:56:00* Test Item Value Reference Range Interpretation Comments Mixed Venous Blood pH (test code = 58682-9) 7.447 7.32-7.42 [facility] [id number] 18:56:00* Test Item Value Reference Range Interpretation Comments Mixed Venous Blood PCO2 (test code = 19631-4) 43.8 40-50 [facility] [id number] 18:56:00 * Test Item Value Reference Range Interpretation Comments Mixed Venous Blood PO2 (test code = 49639-5) 37 38-42 [facility] [id number] 18:56:00* Test Item Value Reference Range Interpretation Comments Mixed Venous Blood HCO3 (test code = 40908-4) 30.2 22-26 H [facility] TylerMixed Venous Blood Base Wnxwbo1053-47-61 18:56:00* Test Item Value Reference Range Interpretation Comments Mixed Venous Blood Base Excess (test code = 16789-3) 6 - 5-3 [facility] O2 Saturation 2018-02-10 18:56:00* Test Item Value Reference Range Interpretation Comments Mixed Venous Blood O2 Saturation (test code = 74994-6) 72 70-75 Reason for ABG: PT ARRIVED BY AMBULANCE C/O SOBTRACH COLLARSpO2 99% at 10 L/min on 40%.[facility] TylerMixed Venous Blood [id number] 18:56:00* Test Item Value Reference Range Interpretation Comments Mixed Venous Blood pH (test code = 31615-2) 7.447 7.32-7.42 [facility] IRH83307-84-24 18:56:00* Test Item Value Reference Range Interpretation Comments Mixed Venous Blood PCO2 (test code = 22606-7) 43.8 40-50 [facility] [id number] 18:56:00 * Test Item Value Reference Range Interpretation Comments Mixed Venous Blood PO2 (test code = 97916-2) 37 38-42 L [facility] [id number] 18:56:00* Test Item Value Reference Range Interpretation Comments Mixed Venous Blood HCO3 (test code = 63235-1) 30.2 22-26 [facility] Base Gxhqir8898-78-90 18:56:00* Test Item Value Reference Range Interpretation Comments Mixed Venous Blood Base Excess (test code = 20733-2) 6 - 5-3 [facility] O2 Saturation 2018-02-10 18:56:00* Test Item Value Reference Range Interpretation Comments Mixed Venous Blood O2 Saturation (test code = 89851-5) 72 70-75 Reason for ABG: PT ARRIVED BY AMBULANCE C/O SOBTRACH COLLARSpO2 99% at 10 L/min on 40%.[facility] TylerMixed Venous Blood [id number] 18:56:00* Test Item Value Reference Range Interpretation Comments Mixed Venous Blood pH (test code = 48112-7) 7.447 7.32-7.42 [facility] GFI13929-62-72 18:56:00* Test Item Value Reference Range Interpretation Comments Mixed Venous Blood PCO2 (test code = 76042-5) 43.8 40-50 [facility] [id number] 18:56:00 * Test Item Value Reference Range Interpretation Comments Mixed Venous Blood PO2 (test code = 20301-1) 37 38-42 L [facility] Venous Blood [id number] 18:56:00* Test Item Value Reference Range Interpretation Comments Mixed Venous Blood HCO3 (test code = 51920-5) 30.2 22-26 H [facility] Venous Blood Base Gkttqr4623-08-81 18:56:00* Test Item Value Reference Range Interpretation Comments Mixed Venous Blood Base Excess (test code = 35148-7) 6 - 5-3 [facility] O2 Saturation 2018-02-10 18:56:00* Test Item Value Reference Range Interpretation Comments Mixed Venous Blood O2 Saturation (test code = 87167-2) 72 70-75 Reason for ABG: PT ARRIVED BY AMBULANCE C/O SOBTRACH COLLARSpO2 99% at 10 L/min on 40%.[facility] [id number] 18:56:00* Test Item Value Reference Range Interpretation Comments Mixed Venous Blood pH (test code = 74102-5) 7.447 7.32-7.42 [facility] [id number] 18:56:00* Test Item Value Reference Range Interpretation Comments Mixed Venous Blood PCO2 (test code = 44557-4) 43.8 40-50 [facility] [id number] 18:56:00 * Test Item Value Reference Range Interpretation Comments Mixed Venous Blood PO2 (test code = 46996-0) 37 38-42 L [facility] Blood [id number] 18:56:00* Test Item Value Reference Range Interpretation Comments Mixed Venous Blood HCO3 (test code = 40444-8) 30.2 22-26 [facility] Base Lezrzw0658-57-74 18:56:00* Test Item Value Reference Range Interpretation Comments Mixed Venous Blood Base Excess (test code = 20001-5) 6 - 5-3 [facility] Blood O2 Saturation 2018-02-10 18:56:00* Test Item Value Reference Range Interpretation Comments Mixed Venous Blood O2 Saturation (test code = 43712-2) 72 70-75 Reason for ABG: PT ARRIVED BY AMBULANCE C/O SOBTRACH COLLARSpO2 99% at 10 L/min on 40%.[facility] [id number] 18:56:00* Test Item Value Reference Range Interpretation Comments Mixed Venous Blood pH (test code = 05237-9) 7.447 7.32-7.42 [facility] Blood [id number] 18:56:00* Test Item Value Reference Range Interpretation Comments Mixed Venous Blood PCO2 (test code = 33006-6) 43.8 40-50 [facility] [id number] 18:56:00 * Test Item Value Reference Range Interpretation Comments Mixed Venous Blood PO2 (test code = 06847-3) 37 38-42 L [facility] [id number] 18:56:00* Test Item Value Reference Range Interpretation Comments Mixed Venous Blood HCO3 (test code = 71713-4) 30.2 22-26 [facility] Ven[facility] Blood Base Aehwnr7062-22-14 18:56:00* Test Item Value Reference Range Interpretation Comments Mixed Venous Blood Base Excess (test code = 25027-4) 6 - 5-3 [facility] Blood O2 Saturation 2018-02-10 18:56:00* Test Item Value Reference Range Interpretation Comments Mixed Venous Blood O2 Saturation (test code = 59100-5) 72 70-75 Reason for ABG: PT ARRIVED BY AMBULANCE C/O SOBTRACH COLLARSpO2 99% at 10 L/min on 40%.[facility] TylerMixed Venous Blood [id number] 18:56:00* Test Item Value Reference Range Interpretation Comments Mixed Venous Blood pH (test code = 71184-1) 7.447 7.32-7.42 H [facility] TylerMixed Venous Blood [id number] 18:56:00* Test Item Value Reference Range Interpretation Comments Mixed Venous Blood PCO2 (test code = 52879-4) 43.8 40-50 [facility] TylerMixed Venous Blood [id number] 18:56:00 * Test Item Value Reference Range Interpretation Comments Mixed Venous Blood PO2 (test code = 75746-3) 37 38-42 [facility] Blood [id number] 18:56:00* Test Item Value Reference Range Interpretation Comments Mixed Venous Blood HCO3 (test code = 44179-7) 30.2 22-26 [facility] Tyler[facility] Ven[facility] Base [id number] 18:56:00* Test Item Value Reference Range Interpretation Comments Mixed Venous Blood Base Excess (test code = 56451-0) 6 - 5-3 H [facility] TylerM[facility] Venous Blood O2 Saturation 2018-02-10 18:56:00* Test Item Value Reference Range Interpretation Comments Mixed Venous Blood O2 Saturation (test code = 19362-7) 72 70-75 Reason for ABG: PT ARRIVED BY AMBULANCE C/O SOBTRACH COLLARSpO2 99% at 10 L/min on 40%.[facility] TylerM[facility] Venous Blood [id number] 18:56:00* Test Item Value Reference Range Interpretation Comments Mixed Venous Blood pH (test code = 43696-6) 7.447 7.32-7.42 H [facility] TylerM[facility] Venous Blood [id number] 18:56:00* Test Item Value Reference Range Interpretation Comments Mixed Venous Blood PCO2 (test code = 99081-7) 43.8 40-50 [facility] Tyler[facility] Venous Blood [id number] 18:56:00 * Test Item Value Reference Range Interpretation Comments Mixed Venous Blood PO2 (test code = 10693-3) 37 38-42 L [facility] TylerM[facility] Venous Blood [id number] 18:56:00* Test Item Value Reference Range Interpretation Comments Mixed Venous Blood HCO3 (test code = 44823-1) 30.2 22-26 [facility] [id number] 18:56:00* Test Item Value Reference Range Interpretation Comments Mixed Venous Blood Base Excess (test code = 94236-4) 6 - 5-3 [facility] O2 Saturation 2018-02-10 18:56:00* Test Item Value Reference Range Interpretation Comments Mixed Venous Blood O2 Saturation (test code = 22458-8) 72 70-75 Reason for ABG: PT ARRIVED BY AMBULANCE C/O SOBTRACH COLLARSpO2 99% at 10 L/min on 40%.[facility] [id number] 18:56:00* Test Item Value Reference Range Interpretation Comments Mixed Venous Blood pH (test code = 75284-7) 7.447 7.32-7.42 [facility] [id number] 18:56:00* Test Item Value Reference Range Interpretation Comments Mixed Venous Blood PCO2 (test code = 25625-7) 43.8 40-50 [facility] [id number] 18:56:00 * Test Item Value Reference Range Interpretation Comments Mixed Venous Blood PO2 (test code = 06527-2) 37 38-42 L [facility] [id number] 18:56:00* Test Item Value Reference Range Interpretation Comments Mixed Venous Blood HCO3 (test code = 30949-5) 30.2 22-26 [facility] Base Fduykb7386-35-20 18:56:00* Test Item Value Reference Range Interpretation Comments Mixed Venous Blood Base Excess (test code = 77214-7) 6 - 5-3 [facility] O2 Saturation 2018-02-10 18:56:00* Test Item Value Reference Range Interpretation Comments Mixed Venous Blood O2 Saturation (test code = 11766-4) 72 70-75 Reason for ABG: PT ARRIVED BY AMBULANCE C/O SOBTRACH COLLARSpO2 99% at 10 L/min on 40%.[facility] Tyler[facility] Venous Blood [id number] 18:56:00* Test Item Value Reference Range Interpretation Comments Mixed Venous Blood pH (test code = 74674-9) 7.447 7.32-7.42 [facility] [id number] 18:56:00* Test Item Value Reference Range Interpretation Comments Mixed Venous Blood PCO2 (test code = 38306-7) 43.8 40-50 [facility] [id number] 18:56:00 * Test Item Value Reference Range Interpretation Comments Mixed Venous Blood PO2 (test code = 23095-3) 37 38-42 L [facility] [id number] 18:56:00* Test Item Value Reference Range Interpretation Comments Mixed Venous Blood HCO3 (test code = 19202-4) 30.2 22-26 [facility] Base [id number] 18:56:00* Test Item Value Reference Range Interpretation Comments Mixed Venous Blood Base Excess (test code = 51080-3) 6 - 5-3 H [facility] Tyler[facility] Venous Blood O2 Saturation 2018-02-10 18:56:00* Test Item Value Reference Range Interpretation Comments Mixed Venous Blood O2 Saturation (test code = 31663-8) 72 70-75 Reason for ABG: PT ARRIVED BY AMBULANCE C/O SOBTRACH COLLARSpO2 99% at 10 L/min on 40%.[facility] TylerWhite Blood [id number] 18:51:00* Test Item Value Reference Range Interpretation Comments White Blood Count (test code = 6690-2) 17.67 4.8-10.8 H [facility] TylerRed Blood Suvzg0374-12-73 18:51:00* Test Item Value Reference Range Interpretation Comments Red Blood Count (test code = 789-8) 4.16 3.6-5.1 [facility] TylerHemoglobin2018-05-25 18:51:00* Test Item Value Reference Range Interpretation Comments Hemoglobin (test code = 02139-4) 11.5 12.0-16.0 L [facility] TylerHematocrit2018-05-25 18:51:00* Test Item Value Reference Range Interpretation Comments Hematocrit (test code = 4544-3) 36.1 34.2-44.1 [facility] TylerMean Corpuscular Ocxsza9075-26-86 18:51:00* Test Item Value Reference Range Interpretation Comments Mean Corpuscular Volume (test code = 787-2) 86.8 81-99 [facility] TylerMean Corpuscular Jhmjmvadta7493-70-99 18:51:00* Test Item Value Reference Range Interpretation Comments Mean Corpuscular Hemoglobin (test code = 785-6) 27.6 28-32 L [facility] TylerMean Corpuscular Hemoglobin Concent 2018-02-10 18:51:00* Test Item Value Reference Range Interpretation Comments Mean Corpuscular Hemoglobin Concent (test code = 786-4) 31.9 31-35 [facility] TylerRed Cell Distribution Njlrp9250-64-08 18:51:00* Test Item Value Reference Range Interpretation Comments Red Cell Distribution Width (test code = 80441-8) 15.9 11.7 -14.4 H [facility] TylerPlatelet Lkmxm9923-48-96 18:51:00* Test Item Value Reference Range Interpretation Comments Platelet Count (test code = 777-3) 152 140-360 [facility] TylerNeutrophils (%) (Auto)2018-02-10 18:51:00 * Test Item Value Reference Range Interpretation Comments Neutrophils (%) (Auto) (test code = 73082-4) 81.1 38.7-80.0 H [facility] TylerLymphocytes (%) (Auto)2018-02-10 18:51:00 * Test Item Value Reference Range Interpretation Comments Lymphocytes (%) (Auto) (test code = 736-9) 7.0 18.0-39.1 L [facility] TylerMonocytes (%) (Auto)2018-02-10 18:51:00* Test Item Value Reference Range Interpretation Comments Monocytes (%) (Auto) (test code = 5905-5) 7.4 4.4-11.3 [facility] TylerEosinophils (%) (Auto)2018-02-10 18:51:00 * Test Item Value Reference Range Interpretation Comments Eosinophils (%) (Auto) (test code = 713-8) 1.2 0.0-6.0 [facility] TylerBasophils (%) (Auto)2018-02-10 18:51:00* Test Item Value Reference Range Interpretation Comments Basophils (%) (Auto) (test code = 706-2) 0.5 0.0-1.0 [facility] TylerIM GRANULOCYTES %2018-02-10 18:51:00* Test Item Value Reference Range Interpretation Comments IM GRANULOCYTES % (test code = IM GRANULOCYTES %) 2.8 0.0- 1.0 H [facility] TylerNeutrophils # (Auto)2018-02-10 18:51:00* Test Item Value Reference Range Interpretation Comments Neutrophils # (Auto) (test code = 751-8) 14.3 2.1-6.9 H [facility] TylerLymphocytes # (Auto)2018-02-10 18:51:00* Test Item Value Reference Range Interpretation Comments Lymphocytes # (Auto) (test code = 82175-4) 1.2 1.0-3.2 [facility] TylerMonocytes # (Auto)2018-02-10 18:51:00* Test Item Value Reference Range Interpretation Comments Monocytes # (Auto) (test code = 742-7) 1.3 0.2-0.8 H [facility] TylerEosinophils # (Auto)2018-02-10 18:51:00* Test Item Value Reference Range Interpretation Comments Eosinophils # (Auto) (test code = 711-2) 0.2 0.0-0.4 [facility] TylerBasophils # (Auto)2018-02-10 18:51:00* Test Item Value Reference Range Interpretation Comments Basophils # (Auto) (test code = 704-7) 0.1 0.0-0.1 [facility] TylerAbsolute Immature Granulocyte (auto 2018-02-10 18:51:00* Test Item Value Reference Range Interpretation Comments Absolute Immature Granulocyte (auto (melina t code = Absolute Immature Granulocyte (auto) 0.49 0-0.1 H [facility] Yruvjue1553-96-09 12:02:00* Test Item Value Reference Range Interpretation Comments Bedside Glucose (test code = 34672-3) 141 70-120 H Meter ID: [id number] Glucose 2018-01-20 12:02:00* Test Item Value Reference Range Interpretation Comments Bedside Glucose (test code = 61167-8) 141 70-120 H Meter ID: [id number] [facility] TylerDifferential Total Cells Stbsusj0414-40-45 08:34:00* Test Item Value Reference Range Interpretation Comments Differential Total Cells Counted (test code = Differjesus tial Total Cells Counted) 100 [facility] TylerNeutrophils % (Manual)2018-01-20 08:34:00 * Test Item Value Reference Range Interpretation Comments Neutrophils % (Manual) (test code = 31550-4) 87 40-74 H [facility] TylerBand Neutrophils %2018-01-20 08:34:00* Test Item Value Reference Range Interpretation Comments Band Neutrophils % (test code = 764-1) 1 [facility] TylerLymphocytes % (Manual)2018-01-20 08:34:00 * Test Item Value Reference Range Interpretation Comments Lymphocytes % (Manual) (test code = 737-7) 9 19-48 L [facility] TylerMonocytes % (Manual)2018-01-20 08:34:00* Test Item Value Reference Range Interpretation Comments Monocytes % (Manual) (test code = 744-3) 1 3.4-9.0 L [facility] TylerMetamyelocytes %2018-01-20 08:34:00* Test Item Value Reference Range Interpretation Comments Metamyelocytes % (test code = 740-1) 1 0-0 H [facility] TylerHypersegmented Tqhxxnwztlf6192-10-62 08:34:00* Test Item Value Reference Range Interpretation Comments Hypersegmented Neutrophils (test code = 765-8) FEW [facility] TylerReactive Unseighpzux6590-77-68 08:34:00* Test Item Value Reference Range Interpretation Comments Reactive Lymphocytes (test code = 39605-4) 1 [facility] TylerPlatelet Lrsuezze3954-96-74 08:34:00* Test Item Value Reference Range Interpretation Comments Platelet Estimate (test code = 17796-6) SLIGHTLY DECREASED [facility] TylerPlatelet Morphology Xjxtfdh3586-90-55 08:34:00* Test Item Value Reference Range Interpretation Comments Platelet Morphology Comment (test code = 18289-4) FEW LARGE [facility] TylerRed Cell Morphology Ikbeioy4232-36-91 08:34:00* Test Item Value Reference Range Interpretation Comments Red Cell Morphology Comment (test code = 6742-1) NORMAL [facility] TylerBand Neutrophils %2018-01-20 08:34:00* Test Item Value Reference Range Interpretation Comments Band Neutrophils % (test code = 764-1) 1 [facility] TylerMetamyelocytes %2018-01-20 08:34:00* Test Item Value Reference Range Interpretation Comments Metamyelocytes % (test code = 740-1) 1 0-0 H [facility] TylerHypersegmented Bmvksljmdqg0095-51-82 08:34:00* Test Item Value Reference Range Interpretation Comments Hypersegmented Neutrophils (test code = 765-8) FEW [facility] TylerReactive Buwgttmxevw3833-29-42 08:34:00* Test Item Value Reference Range Interpretation Comments Reactive Lymphocytes (test code = 53111-0) 1 [facility] TylerHypersegmented Ajdkupgmhzo7824-69-84 08:34:00* Test Item Value Reference Range Interpretation Comments Hypersegmented Neutrophils (test code = 765-8) FEW [facility] TylerHypersegmented Dwfyllfxitw0167-48-42 08:34:00* Test Item Value Reference Range Interpretation Comments Hypersegmented Neutrophils (test code = 765-8) FEW [facility] TylerHypersegmented Kgxywmretas1898-96-29 08:34:00* Test Item Value Reference Range Interpretation Comments Hypersegmented Neutrophils (test code = 765-8) [facility] Btupzgprpaj9297-55-84 08:34:00* Test Item Value Reference Range Interpretation Comments Hypersegmented Neutrophils (test code = 765-8) FEW [facility] TylerHyperscross[facility] Ohvqlwemcys9443-90-07 08:34:00* Test Item Value Reference Range Interpretation Comments Hypersegmented Neutrophils (test code = 765-8) FEW [facility] TylerHypersegmichiana [facility] center Icukhwfezuk5834-55-61 08:34:00* Test Item Value Reference Range Interpretation Comments Hypersegmented Neutrophils (test code = 765-8) FEW [facility] TylerHypersegmented Vowtumluxol5700-02-68 08:34:00* Test Item Value Reference Range Interpretation Comments Hypersegmented Neutrophils (test code = 765-8) FEW [facility] TylerHypersegmented Vbrzbzsbycn0429-12-87 08:34:00* Test Item Value Reference Range Interpretation Comments Hypersegmented Neutrophils (test code = 765-8) [facility]woodHyper[facility] Wcxrerytnal0473-88-88 08:34:00* Test Item Value Reference Range Interpretation Comments Hypersegmented Neutrophils (test code = 765-8) [facility]woodHypersegmented Rxurkqkirke5552-65-07 08:34:00* Test Item Value Reference Range Interpretation Comments Hypersegmented Neutrophils (test code = 765-8) [facility] BrownwoodWhite Blood Hbtco1028-86-11 07:20:00* Test Item Value Reference Range Interpretation Comments White Blood Count (test code = 6690-2) 12.66 4.8-10.8 H [facility] TylerRed Blood Wkmnu8307-11-74 07:20:00* Test Item Value Reference Range Interpretation Comments Red Blood Count (test code = 789-8) 3.70 3.6-5.1 [facility] TylerHemoglobin2018-05-04 07:20:00* Test Item Value Reference Range Interpretation Comments Hemoglobin (test code = 05288-6) 10.1 12.0-16.0 L [facility] TylerHematocrit2018-05-04 07:20:00* Test Item Value Reference Range Interpretation Comments Hematocrit (test code = 4544-3) 31.7 34.2-44.1 L [facility] TylerMean Corpuscular Brsiwr1917-23-01 07:20:00* Test Item Value Reference Range Interpretation Comments Mean Corpuscular Volume (test code = 787-2) 85.7 81-99 [facility] TylerMean Corpuscular Kimxyetqcg5467-87-23 07:20:00* Test Item Value Reference Range Interpretation Comments Mean Corpuscular Hemoglobin (test code = 785-6) 27.3 28-32 L [facility] TylerMean Corpuscular Hemoglobin Concent 2018-01-20 07:20:00* Test Item Value Reference Range Interpretation Comments Mean Corpuscular Hemoglobin Concent (test code = 786-4) 31.9 31-35 [facility] TylerRed Cell Distribution Kjyqu5946-38-30 07:20:00* Test Item Value Reference Range Interpretation Comments Red Cell Distribution Width (test code = 26683-3) 15.9 11.7 -14.4 H [facility] TylerPlatelet Sxfpg5284-79-05 07:20:00* Test Item Value Reference Range Interpretation Comments Platelet Count (test code = 777-3) 82 140-360 L [facility] TylerNeutrophils (%) (Auto)2018-01-20 07:20:00 * Test Item Value Reference Range Interpretation Comments Neutrophils (%) (Auto) (test code = 78694-9) 79.3 38.7-80.0 [facility] TylerLymphocytes (%) (Auto)2018-01-20 07:20:00 * Test Item Value Reference Range Interpretation Comments Lymphocytes (%) (Auto) (test code = 736-9) 8.1 18.0-39.1 L [facility] TylerMonocytes (%) (Auto)2018-01-20 07:20:00* Test Item Value Reference Range Interpretation Comments Monocytes (%) (Auto) (test code = 5905-5) 9.2 4.4-11.3 [facility] TylerEosinophils (%) (Auto)2018-01-20 07:20:00 * Test Item Value Reference Range Interpretation Comments Eosinophils (%) (Auto) (test code = 713-8) 1.4 0.0-6.0 [facility] TylerBasophils (%) (Auto)2018-01-20 07:20:00* Test Item Value Reference Range Interpretation Comments Basophils (%) (Auto) (test code = 706-2) 0.3 0.0-1.0 [facility] TylerIM GRANULOCYTES %2018-01-20 07:20:00* Test Item Value Reference Range Interpretation Comments IM GRANULOCYTES % (test code = IM GRANULOCYTES %) 1.7 0.0- 1.0 H [facility] TylerNeutrophils # (Auto)2018-01-20 07:20:00* Test Item Value Reference Range Interpretation Comments Neutrophils # (Auto) (test code = 751-8) 10.0 2.1-6.9 H [facility] TylerLymphocytes # (Auto)2018-01-20 07:20:00* Test Item Value Reference Range Interpretation Comments Lymphocytes # (Auto) (test code = 46157-7) 1.0 1.0-3.2 [facility] TylerMonocytes # (Auto)2018-01-20 07:20:00* Test Item Value Reference Range Interpretation Comments Monocytes # (Auto) (test code = 742-7) 1.2 0.2-0.8 H [facility] TylerEosinophils # (Auto)2018-01-20 07:20:00* Test Item Value Reference Range Interpretation Comments Eosinophils # (Auto) (test code = 711-2) 0.2 0.0-0.4 [facility] TylerBasophils # (Auto)2018-01-20 07:20:00* Test Item Value Reference Range Interpretation Comments Basophils # (Auto) (test code = 704-7) 0.0 0.0-0.1 [facility] TylerAbsolute Immature Granulocyte (auto 2018-01-20 07:20:00* Test Item Value Reference Range Interpretation Comments Absolute Immature Granulocyte (auto (melina t code = Absolute Immature Granulocyte (auto) 0.21 0-0.1 [facility] Stationodium Nbfps8183-49-83 07:17:00* Test Item Value Reference Range Interpretation Comments Sodium Level (test code = 2951-2) 136 136-145 [facility] TylerPotassium Vxlfz9383-51-29 07:17:00* Test Item Value Reference Range Interpretation Comments Potassium Level (test code = 2823-3) 3.1 3.5-5.1 L [facility] TylerChloride Nybug9573-56-12 07:17:00* Test Item Value Reference Range Interpretation Comments Chloride Level (test code = 2075-0) 95 98-107 L [facility] TylerCarbon Dioxide Dafex4208-27-29 07:17:00* Test Item Value Reference Range Interpretation Comments Carbon Dioxide Level (test code = 2028-9) 32 22-29 H [facility] TylerAnion Aqu5425-16-54 07:17:00* Test Item Value Reference Range Interpretation Comments Anion Gap (test code = 20191-4) 12.1 8-16 [facility] TylerBlood Urea Xmdgsdmo9726-55-26 07:17:00* Test Item Value Reference Range Interpretation Comments Blood Urea Nitrogen (test code = 3094-0) 11 7-26 [facility] TylerCreatinine2018-05-04 07:17:00* Test Item Value Reference Range Interpretation Comments Creatinine (test code = 2160-0) 0.59 0.57-1.11 [facility] TylerBUN/Creatinine Colls3206-50-87 07:17:00* Test Item Value Reference Range Interpretation Comments BUN/Creatinine Ratio (test code = 3097-3) 19 6-25 [facility] TylerEstimat Glomerular Filtration Rate 2018-01-20 07:17:00* Test Item Value Reference Range Interpretation Comments Estimat Glomerular Filtration Rate (test code = 66775-1) 60- >60 Ranges were taken from the National Kidney Disease Education Program and the [facility] Foundation literature.Reference ranges:60 or greater: Gyrmjq29-51 ( for 3 consecutive months): Chronic kidney disease 15 or less: Kidney failureCHRISTUS [facility] – TylerGlucose Ckhzn3760-95-09 07:17:00* Test Item Value Reference Range Interpretation Comments Glucose Level (test code = QCL6752) 140 74-118 H [facility] TylerCalcium Ziidl4603-52-52 07:17:00* Test Item Value Reference Range Interpretation Comments Calcium Level (test code = 02026-8) 8.3 8.4-10.2 L [facility] TylerMagnesium Gkiid2006-45-95 07:17:00* Test Item Value Reference Range Interpretation Comments Magnesium Level (test code = 72427-4) 1.4 1.3-2.1 [facility] TylerMagnesium Jjikz8687-13-28 07:17:00* Test Item Value Reference Range Interpretation Comments Magnesium Level (test code = 56595-7) 1.4 1.3-2.1 [facility] TylerEosinophils % (Manual)2018-01-19 08:56:00 * Test Item Value Reference Range Interpretation Comments Eosinophils % (Manual) (test code = 714-6) 1 0-7 [facility] TylerHypochromasia2018-05-03 08:56:00* Test Item Value Reference Range Interpretation Comments Hypochromasia (test code = 728-6) SLIGHT [facility] TylerAnisocytosis2018-05-03 08:56:00* Test Item Value Reference Range Interpretation Comments Anisocytosis (test code = 702-1) SLIGHT [facility] TylerEosinophils % (Manual)2018-01-19 08:56:00 * Test Item Value Reference Range Interpretation Comments Eosinophils % (Manual) (test code = 714-6) 1 0-7 [facility] TylerAnisocytosis2018-05-03 08:56:00* Test Item Value Reference Range Interpretation Comments Anisocytosis (test code = 702-1) SLIGHT [facility] TylerMyelocytes %2018-01-18 08:30:00* Test Item Value Reference Range Interpretation Comments Myelocytes % (test code = 749-2) 4 0-0 H [facility] TylerPoikilocytosis2018-05-02 08:30:00* Test Item Value Reference Range Interpretation Comments Poikilocytosis (test code = 779-9) SLIGHT [facility] TylerMyelocytes %2018-01-18 08:30:00* Test Item Value Reference Range Interpretation Comments Myelocytes % (test code = 749-2) 4 0-0 [facility] 08:30:00* Test Item Value Reference Range Interpretation Comments Poikilocytosis (test code = 779-9) SLIGHT [facility]2018-04-30 11:07:00* Test Item Value Reference Range Interpretation Comments Smudge Cells (test code = 7798-2) FEW [facility]2018-04-30 11:07:00* Test Item Value Reference Range Interpretation Comments Smudge Cells (test code = 7798-2) FEW [facility]2018-04-30 11:07:00* Test Item Value Reference Range Interpretation Comments Smudge Cells (test code = 7798-2) FEW [facility]2018-04-30 11:07:00* Test Item Value Reference Range Interpretation Comments Smudge Cells (test code = 7798-2) [facility]2018-04-30 11:07:00* Test Item Value Reference Range Interpretation Comments Smudge Cells (test code = 7798-2) [facility]2018-04-30 11:07:00* Test Item Value Reference Range Interpretation Comments Smudge Cells (test code = 7798-2) [facility]2018-04-30 11:07:00* Test Item Value Reference Range Interpretation Comments Smudge Cells (test code = 7798-2) [facility]2018-04-30 11:07:00* Test Item Value Reference Range Interpretation Comments Smudge Cells (test code = 7798-2) [facility]2018-04-30 11:07:00* Test Item Value Reference Range Interpretation Comments Smudge Cells (test code = 7798-2) [facility]2018-04-30 11:07:00* Test Item Value Reference Range Interpretation Comments Smudge Cells (test code = 7798-2) [facility]2018-04-30 11:07:00* Test Item Value Reference Range Interpretation Comments Smudge Cells (test code = 7798-2) [facility]2018-04-30 11:07:00* Test Item Value Reference Range Interpretation Comments Smudge Cells (test code = 7798-2) [facility]woodBacteria identification in sputum by respiratory rqbkrgd2486-76-97 12:38:00* Test Item Value Reference Range Interpretation Comments Sputum Culture (test code = 624-7) Organism: STAPHYLOCOCCUS AUREUS- MRSA [facility] [facility] TylerBacteria identification in sputum by respiratory ppqulxg3118-14-99 12:38:00* Test Item Value Reference Range Interpretation Comments Sputum Culture (test code = 624-7) Organism: STAPHYLOCOCCUS AUREUS- MRSA [facility] TylerClostridium Difficile Toxin A & B 2018-01-13 10:01:00* Test Item Value Reference Range Interpretation Comments Clostridium Difficile Toxin A & B (test code = 185807066) POSI TIVE NEGATIVE H Results called to Sofy De Leon RN at 0953 on 01/13/18 by Nitza ANDRADE.Results called to HOLLY KEENAN in infection control at 0953 on 01/13/18 by Il seth Titus.Testing on stool aspirate specimens is outside motor vehicle representative claims since specimen type not validated on this assay.[facility] TylerClostridium Difficile Toxin A & [id number] 10:01:00* Test Item Value Reference Range Interpretation Comments Clostridium Difficile Toxin A & B (test code = 173206408) POSI TIVE NEGATIVE H Results called to Sofy De Leon RN at 0953 on 01/13/18 by Nitza Titus. RB OK.Results called to HOLLY KEENAN in infection control at 0953 on 01/13/18 by Il seth Cuponomiatelly.Testing on stool aspirate specimens is outside motor vehicle representative claims since specimen type not validated on this assay.[facility] TylerArterial Blood [id number] 11:58:00* Test Item Value Reference Range Interpretation Comments Arterial Blood pH (test code = 2744-1) 7.46 7.31-7.41 H [facility] TylerAr[facility]ial Blood Partial Pressure CO2 2018-01-12 11:58:00* Test Item Value Reference Range Interpretation Comments Arterial Blood Partial Pressure CO2 (test code = 2018-8) 57 41-51 H [facility] TylerAr[facility]ial Blood Partial Pressure O2 2018-01-12 11:58:00* Test Item Value Reference Range Interpretation Comments Arterial Blood Partial Pressure O2 (test code = 2019-8) 116 80-105 H [facility] TylerArterial Blood [id number] 11:58:00* Test Item Value Reference Range Interpretation Comments Arterial Blood HCO3 (test code = 1960-4) 40 23-28 H [facility] TylerArterial Blood Base Ulzzwj8234-27-60 11:58:00* Test Item Value Reference Range Interpretation Comments Arterial Blood Base Excess (test code = 1925-7) 16.0 -2-3 H [facility] TylerAr[facility]ial Blood Oxygen Saturation 2018-01-12 11:58:00* Test Item Value Reference Range Interpretation Comments Arterial Blood Oxygen Saturation (test code = 2708-6) 99.0 95-98 H [facility] TylerFiO22018-04-26 11:58:00* Test Item Value Reference Range Interpretation Comments FiO2 (test code = FiO2) 50 PRVC 15 370 50% +7 RIGHT [facility]CHI [facility] [id number] 11:58:00* Test Item Value Reference Range Interpretation Comments Arterial Blood pH (test code = 2744-1) 7.46 7.31-7.41 H [facility] TylerAr[facility]ial Blood Partial Pressure CO2 2018-01-12 11:58:00* Test Item Value Reference Range Interpretation Comments Arterial Blood Partial Pressure CO2 (test code = 2019-04) 57 41-51 H [facility] TylerArterial Blood Partial Pressure O2 2018-01-12 11:58:00* Test Item Value Reference Range Interpretation Comments Arterial Blood Partial Pressure O2 (test code = 2019-04) 116 80-105 H [facility] TylerArterial Blood [id number] 11:58:00* Test Item Value Reference Range Interpretation Comments Arterial Blood HCO3 (test code = 1960-4) 40 23-28 H [facility] TylerArterial Blood Base Ryvpsa8639-31-51 11:58:00* Test Item Value Reference Range Interpretation Comments Arterial Blood Base Excess (test code = 1925-7) 16.0 -2-3 H [facility] TylerArterial Blood Oxygen Saturation 2018-01-12 11:58:00* Test Item Value Reference Range Interpretation Comments Arterial Blood Oxygen Saturation (test code = 2708-6) 99.0 95-98 H [facility] TylerFiO22018-04-26 11:58:00* Test Item Value Reference Range Interpretation Comments FiO2 (test code = FiO2) 50 PRVC 15 370 50% +7 RIGHT [facility] Triglycerides Qtmns9747-52-32 08:11:00* Test Item Value Reference Range Interpretation Comments Triglycerides Level (test code = 2571-8) 183 0-149 H [facility] TylerCholesterol Cgzis6565-55-33 08:11:00* Test Item Value Reference Range Interpretation Comments Cholesterol Level (test code = 2093-3) 129 0-199 Less than 200 mg/dL Low Tyvl440 - 239 mg/dL Borderline Yadb802 m g/dl and greater High Risk [facility] TylerLDL Jbfjuiindyx9076-30-79 08:11:00* Test Item Value Reference Range Interpretation Comments LDL Cholesterol (test code = 2089-1) 51 60-130 L [facility] Ooeydxgqlzs3524-39-45 08:11:00* Test Item Value Reference Range Interpretation Comments HDL Cholesterol (test code = 2085-9) 41 40-60 [facility] TylerCholesterol/HDL Feyui0409-42-08 08:11:00 * Test Item Value Reference Range Interpretation Comments Cholesterol/HDL Ratio (test code = 9830-1) 3.1 3.0-3.6 [facility] TylerTriglycerides Ifqxg0886-39-67 08:11:00* Test Item Value Reference Range Interpretation Comments Triglycerides Level (test code = 2571-8) 183 0-149 H [facility] TylerCholesterol Scycs3531-92-89 08:11:00* Test Item Value Reference Range Interpretation Comments Cholesterol Level (test code = 2093-3) 129 0-199 Less than 200 mg/dL Low Czvi756 - 239 mg/dL Borderline Ydxv805 m g/dl and greater High Risk [facility] TylerLDL Znjfavavsng9486-48-11 08:11:00* Test Item Value Reference Range Interpretation Comments LDL Cholesterol (test code = 2089-1) 51 60-130 L [facility] Fpwujytnnfh3048-70-57 08:11:00* Test Item Value Reference Range Interpretation Comments HDL Cholesterol (test code = 2085-9) 41 40-60 [facility] TylerCholesterol/HDL Cdcgz3211-06-04 08:11:00 * Test Item Value Reference Range Interpretation Comments Cholesterol/HDL Ratio (test code = 9830-1) 3.1 3.0-3.6 [facility] TylerBlood Wzzmejr3441-57-35 18:36:00* Test Item Value Reference Range Interpretation Comments Blood Culture (test code = 13878529) NO GROWTH AFTER 5 DAYS, FINAL REPORT [facility] Mmpwrky5494-59-34 18:36:00* Test Item Value Reference Range Interpretation Comments Blood Culture (test code = 16834708) NO GROWTH AFTER 5 DAYS, FINAL REPORT [facility] Fqwddzl2462-87-39 09:26:00* Test Item Value Reference Range Interpretation Comments Sputum Culture (test code = 624-7) Organism: ENTEROBACTER AEROGENES [facility] Dwdbaxb5358-32-02 09:26:00* Test Item Value Reference Range Interpretation Comments Sputum Culture (test code = 624-7) Organism: ENTEROBACTER [facility]EROGENES [facility] 07:48:00* Test Item Value Reference Range Interpretation Comments Stomatocytes (test code = 80673-4) SLIGHT [facility] TylerHow[facility] Jqdrdb2420-57-79 07:48:00* Test Item Value Reference Range Interpretation Comments Randle-Diablo Bodies (test code = 7793-3) FEW [facility] TylerElliptocytes2018-04-23 07:48:00* Test Item Value Reference Range Interpretation Comments Elliptocytes (test code = 12557-0) SLIGHT [facility]ocytes2018-04-23 07:48:00* Test Item Value Reference Range Interpretation Comments Stomatocytes (test code = 44307-7) SLIGHT [facility] TylerHow[facility] Zsxugq9656-47-04 07:48:00* Test Item Value Reference Range Interpretation Comments Randle-[place] Bodies (test code = 7793-3) FEW [facility] TylerElliptocytes2018-04-23 07:48:00* Test Item Value Reference Range Interpretation Comments Elliptocytes (test code = 49611-9) [facility]IGHT [facility] 07:48:00* Test Item Value Reference Range Interpretation Comments Stomatocytes (test code = 52214-1) SLIGHT [facility] TylerHow[facility] Tetolz5674-01-97 07:48:00* Test Item Value Reference Range Interpretation Comments [place] Bodies (test code = 7793-3) [facility] 07:48:00* Test Item Value Reference Range Interpretation Comments Elliptocytes (test code = 98881-5) [facility]IGHT [facility]-04-23 07:48:00* Test Item Value Reference Range Interpretation Comments Stomatocytes (test code = 35741-0) SLIGHT [facility] Tyler[facility] Kzaauy0205-15-24 07:48:00* Test Item Value Reference Range Interpretation Comments Randle-[place] Bodies (test code = 7793-3) FEW [facility]2018-04-23 07:48:00* Test Item Value Reference Range Interpretation Comments Elliptocytes (test code = 74317-9) SLIGHT [facility]2018-04-23 07:48:00* Test Item Value Reference Range Interpretation Comments Stomatocytes (test code = 15132-8) SLIGHT [facility] Tyler[facility] Zllqsc5095-11-07 07:48:00* Test Item Value Reference Range Interpretation Comments Randle-[place] Bodies (test code = 7793-3) FEW [facility]2018-04-23 07:48:00* Test Item Value Reference Range Interpretation Comments Elliptocytes (test code = 28964-0) [facility]IGHT [facility]-04-23 07:48:00* Test Item Value Reference Range Interpretation Comments Stomatocytes (test code = 23819-3) SLIGHT [facility] Tyler[facility] Mhlhfg7652-95-40 07:48:00* Test Item Value Reference Range Interpretation Comments Randle-[place] Bodies (test code = 7793-3) FEW [facility]2018-04-23 07:48:00* Test Item Value Reference Range Interpretation Comments Elliptocytes (test code = 01135-9) SLIGHT [facility]2018-04-23 07:48:00* Test Item Value Reference Range Interpretation Comments Stomatocytes (test code = 61982-5) SLIGHT [facility] Tyler[facility] Wllwuw5163-20-47 07:48:00* Test Item Value Reference Range Interpretation Comments [place] Bodies (test code = 7793-3) [facility] 07:48:00* Test Item Value Reference Range Interpretation Comments Elliptocytes (test code = 88588-2) [facility] 07:48:00* Test Item Value Reference Range Interpretation Comments Stomatocytes (test code = 94827-8) [facility]IGHT [facility] Zhpwrl9290-08-46 07:48:00* Test Item Value Reference Range Interpretation Comments [place] Bodies (test code = 7793-3) FEW [facility]2018-04-23 07:48:00* Test Item Value Reference Range Interpretation Comments Elliptocytes (test code = 20049-4) SLIGHT [facility] Planotocytes2018-04-23 07:48:00* Test Item Value Reference Range Interpretation Comments Stomatocytes (test code = 92839-8) SLIGHT [facility] Tyler[facility] Tkakfx8788-78-97 07:48:00* Test Item Value Reference Range Interpretation Comments [place]le-[place] Bodies (test code = 7793-3) FEW [facility] TylerElliptocytes2018-04-23 07:48:00* Test Item Value Reference Range Interpretation Comments Elliptocytes (test code = 02622-2) SLIGHT [facility]2018-04-23 07:48:00* Test Item Value Reference Range Interpretation Comments Stomatocytes (test code = 89055-0) [facility] Sbxzyy4352-55-36 07:48:00* Test Item Value Reference Range Interpretation Comments [place] Bodies (test code = 7793-3) FEW [facility] TylerElliptocytes2018-04-23 07:48:00* Test Item Value Reference Range Interpretation Comments Elliptocytes (test code = 06695-6) SLIGHT [facility]2018-04-23 07:48:00* Test Item Value Reference Range Interpretation Comments Stomatocytes (test code = 04464-2) SLIGHT [facility] TylerHow[facility] Uumpxj8940-80-79 07:48:00* Test Item Value Reference Range Interpretation Comments [place] Bodies (test code = 7793-3) FEW [facility] TylerElliptocytes2018-04-23 07:48:00* Test Item Value Reference Range Interpretation Comments Elliptocytes (test code = 66833-0) SLIGHT [facility]2018-04-23 07:48:00* Test Item Value Reference Range Interpretation Comments Stomatocytes (test code = 32883-2) SLIGHT [facility] Tyler[facility] Cewhuo5126-96-71 07:48:00* Test Item Value Reference Range Interpretation Comments [place] Bodies (test code = 7793-3) FEW [facility] TylerElliptocytes2018-04-23 07:48:00* Test Item Value Reference Range Interpretation Comments Elliptocytes (test code = 97207-5) SLIGHT [facility] Xhozlzh2459-35-12 08:28:00* Test Item Value Reference Range Interpretation Comments Urine Culture (test code = 630-4) Organism: ESCHERICHIA COLI-ESBL [facility] Bwnykwn6134-27-11 08:28:00* Test Item Value Reference Range Interpretation Comments Urine Culture (test code = 630-4) Organism: ESCHERICHIA COLI-ESBL [facility] Irogtup6633-45-18 08:28:00* Test Item Value Reference Range Interpretation Comments Urine Culture (test code = 630-4) Organism: ESCHERICHIA COLI-ESBL [facility] Zenrydq7773-40-47 08:28:00* Test Item Value Reference Range Interpretation Comments Urine Culture (test code = 630-4) Organism: ESCHERICHIA COLI-ESBL [facility] Cgqqgps0839-65-19 08:28:00* Test Item Value Reference Range Interpretation Comments Urine Culture (test code = 630-4) Organism: ESCHERICHIA COLI-ESBL [facility] Idzrvrp9419-61-24 08:28:00* Test Item Value Reference Range Interpretation Comments Urine Culture (test code = 630-4) Organism: ESCHERICHIA COLI-ESBL [facility] Pyipucg4978-88-10 08:28:00* Test Item Value Reference Range Interpretation Comments Urine Culture (test code = 630-4) Organism: ESCHERICHIA COLI-ESBL [facility] Jahjsqd5546-35-73 08:28:00* Test Item Value Reference Range Interpretation Comments Urine Culture (test code = 630-4) Organism: ESCHERICHIA COLI-ESBL [facility] Cnzdgui0233-36-87 08:28:00* Test Item Value Reference Range Interpretation Comments Urine Culture (test code = 630-4) Organism: ESCHERICHIA COLI-ESBL [facility] TylerFree Eryhyrqjb7565-47-71 08:07:00* Test Item Value Reference Range Interpretation Comments Free Thyroxine (test code = 3024-7) 0.94 0.9-1.8 [facility] TylerThyroid Stimulating Hormone (TSH) 2018-01-08 08:07:00* Test Item Value Reference Range Interpretation Comments Thyroid Stimulating Hormone (TSH) (test code = 56408-0) 1.447 0.350-4.940 [facility] TylerFree Osrpgnhkd5776-52-85 08:07:00* Test Item Value Reference Range Interpretation Comments Free Thyroxine (test code = 3024-7) 0.94 0.9-1.8 [facility] TylerThyroid Stimulating Hormone (TSH) 2018-01-08 08:07:00* Test Item Value Reference Range Interpretation Comments Thyroid Stimulating Hormone (TSH) (test code = 06430-9) 1.447 0.350-4.940 [facility] TylerHemoglobin A1c Dveccbk5659-77-51 07:21:00 * Test Item Value Reference Range Interpretation Comments Hemoglobin A1c Percent (test code = Hemoglobin A1c Percent) 6.0 4.0-7.0 [facility] TylerHemoglobin A1c Ioqxdca5255-90-67 07:21:00 * Test Item Value Reference Range Interpretation Comments Hemoglobin A1c Percent (test code = Hemoglobin A1c Percent) 6.0 4.0-7.0 [facility] TylerTotal Raeaslkjt8553-61-39 07:30:00* Test Item Value Reference Range Interpretation Comments Total Bilirubin (test code = 1975-2) 0.6 0.2-1.2 [facility] TylerAspartate Amino Transf (AST/SGOT) 2018-01-07 07:30:00* Test Item Value Reference Range Interpretation Comments Aspartate Amino Transf (AST/SGOT) (test code = Aspartate Amino Transf (AST/SGOT)) 13 5-34 [facility] TylerAlanine Aminotransferase (ALT/SGPT) 2018-01-07 07:30:00* Test Item Value Reference Range Interpretation Comments Alanine Aminotransferase (ALT/SGPT) (test code = 1742-6) 10 0-55 [facility] TylerTotal Twokdty1316-99-68 07:30:00* Test Item Value Reference Range Interpretation Comments Total Protein (test code = 2885-2) 5.4 6.5-8.1 L [facility] TylerAlbumin2018-04-21 07:30:00* Test Item Value Reference Range Interpretation Comments Albumin (test code = 1751-7) 2.3 3.5-5.0 L [facility] TylerGlobulin2018-04-21 07:30:00* Test Item Value Reference Range Interpretation Comments Globulin (test code = 45669-9) 3.1 2.3-3.5 [facility] TylerAlbumin/Globulin Gygvh5787-56-50 07:30:00 * Test Item Value Reference Range Interpretation Comments Albumin/Globulin Ratio (test code = 1759-0) 0.7 0.8-2.0 L [facility] TylerAlkaline Jwgnzvjxecg1161-57-37 07:30:00* Test Item Value Reference Range Interpretation Comments Alkaline Phosphatase (test code = 6768-6) 100 40-150 [facility] TylerNucleated Red Blood Eaiud9264-36-94 19:20:00* Test Item Value Reference Range Interpretation Comments Nucleated Red Blood Cells (test code = 80007-7) [address] [facility] Lplav5429-79-76 19:20:00* Test Item Value Reference Range Interpretation Comments Target Cells (test code = 40643-6) FEW [facility] TylerNucleated Red Blood Wgpcu3300-20-05 19:20:00* Test Item Value Reference Range Interpretation Comments Nucleated Red Blood Cells (test code = 39564-3) [address] [facility] Gucah1452-94-41 19:20:00* Test Item Value Reference Range Interpretation Comments Target Cells (test code = 81884-0) FEW [facility] TylerNucleated Red Blood Wzgro1042-30-22 19:20:00* Test Item Value Reference Range Interpretation Comments Nucleated Red Blood Cells (test code = 06633-6) [address] [facility] Sanqg3500-53-17 19:20:00* Test Item Value Reference Range Interpretation Comments Target Cells (test code = 65175-0) FEW [facility] TylerNucleated Red Blood Mruda0403-21-13 19:20:00* Test Item Value Reference Range Interpretation Comments Nucleated Red Blood Cells (test code = 70131-6) [address] [facility] Vsnge6071-10-28 19:20:00* Test Item Value Reference Range Interpretation Comments Target Cells (test code = 18988-1) FEW [facility] TylerNucleated Red Blood Rbivl1090-90-07 19:20:00* Test Item Value Reference Range Interpretation Comments Nucleated Red Blood Cells (test code = 14286-9) [address] [facility] Jktiu1920-28-10 19:20:00* Test Item Value Reference Range Interpretation Comments Target Cells (test code = 64068-6) [facility] Vsscs1399-18-57 19:20:00* Test Item Value Reference Range Interpretation Comments Nucleated Red Blood Cells (test code = 78513-0) [address] [facility] Dkiei9048-47-88 19:20:00* Test Item Value Reference Range Interpretation Comments Target Cells (test code = 25534-7) FEW [facility] TylerNucleated Red Blood Kzxsd4467-60-14 19:20:00* Test Item Value Reference Range Interpretation Comments Nucleated Red Blood Cells (test code = 49996-7) [address] [facility] Wakof0196-08-43 19:20:00* Test Item Value Reference Range Interpretation Comments Target Cells (test code = 04003-2) [facility]woodNucle[facility] Red Blood Cxbgh4135-68-29 19:20:00* Test Item Value Reference Range Interpretation Comments Nucleated Red Blood Cells (test code = 30189-2) [address] [facility] Sqexh5188-79-76 19:20:00* Test Item Value Reference Range Interpretation Comments Target Cells (test code = 68831-6) [facility] BrownwoodNucleated Red Blood Upwzq8467-47-84 19:20:00* Test Item Value Reference Range Interpretation Comments Nucleated Red Blood Cells (test code = 78007-1) [address] [facility] Uywwk2752-41-71 19:20:00* Test Item Value Reference Range Interpretation Comments Target Cells (test code = 69100-4) [facility] BrownwoodNucleated Red Blood Aofjg8660-57-89 19:20:00* Test Item Value Reference Range Interpretation Comments Nucleated Red Blood Cells (test code = 94127-8) [address] [facility] Cnuvn2902-78-25 19:20:00* Test Item Value Reference Range Interpretation Comments Target Cells (test code = 18748-2) [facility] BrownwoodNucleated Red Blood Onwxu8176-23-74 19:20:00* Test Item Value Reference Range Interpretation Comments Nucleated Red Blood Cells (test code = 22827-7) [address] [facility] Hplln6237-17-31 19:20:00* Test Item Value Reference Range Interpretation Comments Target Cells (test code = 85467-8) FEW [facility] TylerNucleated Red Blood Vqcri1403-99-93 19:20:00* Test Item Value Reference Range Interpretation Comments Nucleated Red Blood Cells (test code = 30606-4) 4 [facility] TylerTarget Kenaw0604-78-81 19:20:00* Test Item Value Reference Range Interpretation Comments Target Cells (test code = 31967-5) FEW [facility] TylerLactic Acid Nuyuv8101-61-59 18:18:00* Test Item Value Reference Range Interpretation Comments Lactic Acid Level (test code = Lactic Acid Level) 11.1 4.5- 19.8 [facility] TylerB-Type Natriuretic Xacmgeq8302-97-78 18:11:00* Test Item Value Reference Range Interpretation Comments B-Type Natriuretic Peptide (test code = 04995-6) 61.5 0-100 [facility] TylerUrine WXR4612-52-38 18:09:00* Test Item Value Reference Range Interpretation Comments Urine WBC (test code = 5821-4) 0-5 0-5 [facility] TylerUrine WFJ2888-64-57 18:09:00* Test Item Value Reference Range Interpretation Comments Urine RBC (test code = 82268-7) 11-20 0-5 H [facility] TylerUrine Sbrzqmgm8042-38-83 18:09:00* Test Item Value Reference Range Interpretation Comments Urine Bacteria (test code = 58971-8) MANY NONE H [facility] TylerUrine Epithelial Jvdgp8645-17-90 18:09:00 * Test Item Value Reference Range Interpretation Comments Urine Epithelial Cells (test code = 48305-8) MODERATE NONE [facility] TylerUrine Amorphous Gzglllho4659-07-02 18:09:00* Test Item Value Reference Range Interpretation Comments Urine Amorphous Sediment (test code = 8246-1) MANY FEW H [facility] TylerCreatine Kinase JC0016-02-76 18:09:00* Test Item Value Reference Range Interpretation Comments Creatine Kinase MB (test code = 17829-3) 0.70 0-5.0 [facility] TylerTroponin P6125-59-72 18:09:00* Test Item Value Reference Range Interpretation Comments Troponin I (test code = IYV5531) 0.010 0-0.300 [facility] TylerUrine MQY0888-19-77 18:09:00* Test Item Value Reference Range Interpretation Comments Urine WBC (test code = 5821-4) 0-5 0-5 [facility] TylerUrine GDC5566-37-13 18:09:00* Test Item Value Reference Range Interpretation Comments Urine RBC (test code = 18297-3) 11-20 0-5 H [facility] TylerUrine Ubgjccnx4524-08-55 18:09:00* Test Item Value Reference Range Interpretation Comments Urine Bacteria (test code = 78904-5) MANY NONE H [facility] Epithelial Rlqhz5266-33-16 18:09:00 * Test Item Value Reference Range Interpretation Comments Urine Epithelial Cells (test code = 23441-8) MODERATE NONE [facility] Amorphous Nqbamglx2890-71-96 18:09:00* Test Item Value Reference Range Interpretation Comments Urine Amorphous Sediment (test code = 8246-1) MANY FEW H [facility] Amorphous Pktmpqdo2386-62-09 18:09:00* Test Item Value Reference Range Interpretation Comments Urine Amorphous Sediment (test code = 8246-1) MANY FEW H [facility] Amorphous Yimjujdn0957-88-41 18:09:00* Test Item Value Reference Range Interpretation Comments Urine Amorphous Sediment (test code = 8246-1) MANY FEW H [facility] Amorphous Nexkwonp1406-28-38 18:09:00* Test Item Value Reference Range Interpretation Comments Urine Amorphous Sediment (test code = 8246-1) MANY FEW H [facility] Amorphous Hbsgmhgh9838-41-06 18:09:00* Test Item Value Reference Range Interpretation Comments Urine Amorphous Sediment (test code = 8246-1) MANY FEW H [facility] Amorphous Oxxspsbd0915-62-19 18:09:00* Test Item Value Reference Range Interpretation Comments Urine Amorphous Sediment (test code = 8246-1) MANY FEW H [facility] Pmdhmryu6534-34-64 18:09:00* Test Item Value Reference Range Interpretation Comments Urine Amorphous Sediment (test code = 8246-1) MANY FEW H [facility] Guxdkd5160-80-71 18:01:00* Test Item Value Reference Range Interpretation Comments Creatine Kinase (test code = 2157-6) 17 29-168 L [facility] Quantitative (PE/DVT)2018-01-06 17:56:00* Test Item Value Reference Range Interpretation Comments D-Dimer Quantitative (PE/DVT) (test code = 74723-3) 3.57 0. 00-0.45 H As with all in vitro diagnostic tests, the test results should be interpreted by the physician in conjunction with clinical findings and other test results.Test results are reported in NEW D-dimer units(ug/mLFEU).[facility] Tgrkz5311-65-92 17:56:00* Test Item Value Reference Range Interpretation Comments Urine Color (test code = 5778-6) YELLOW YELLOW [facility] Azbmfxb1825-54-52 17:56:00* Test Item Value Reference Range Interpretation Comments Urine Clarity (test code = 72722-7) SL CLOUDY CLEAR [facility] Specific Ccpvgon8969-16-27 17:56:00 * Test Item Value Reference Range Interpretation Comments Urine Specific [place] (test code = 5811-5) 1.015 1.010-1.02 5 [facility] tJ2986-70-35 17:56:00* Test Item Value Reference Range Interpretation Comments Urine pH (test code = 29654-0) 5 5-7 [facility] Leukocyte Uaponrnc2262-11-47 17:56:00* Test Item Value Reference Range Interpretation Comments Urine Leukocyte Esterase (test code = 5799-2) 1+ NEGATIVE H [facility] Uejshsm5987-41-06 17:56:00* Test Item Value Reference Range Interpretation Comments Urine Nitrite (test code = 77781-1) POSITIVE NEGATIVE H [facility] Vceljih6878-49-90 17:56:00* Test Item Value Reference Range Interpretation Comments Urine Protein (test code = 5804-0) NEGATIVE NEGATIVE [facility] Glucose (UA)2018-01-06 17:56:00* Test Item Value Reference Range Interpretation Comments Urine Glucose (UA) (test code = 2349-9) NEGATIVE NEGATIVE [facility] Xbnjcqs7650-45-07 17:56:00* Test Item Value Reference Range Interpretation Comments Urine Ketones (test code = 66632-9) NEGATIVE NEGATIVE [facility] Tqmrhxwvqkpx0483-02-35 17:56:00* Test Item Value Reference Range Interpretation Comments Urine Urobilinogen (test code = 80287-6) 0.2 0.2-1 [facility] Mhrytlwvd8970-67-96 17:56:00* Test Item Value Reference Range Interpretation Comments Urine Bilirubin (test code = 1978-6) NEGATIVE NEGATIVE [facility] Qgpaj5887-68-29 17:56:00* Test Item Value Reference Range Interpretation Comments Urine Blood (test code = 90004-5) 2+ NEGATIVE H [facility] Quantitative (PE/DVT)2018-01-06 17:56:00* Test Item Value Reference Range Interpretation Comments D-Dimer Quantitative (PE/DVT) (test code = 41035-2) 3.57 0. 00-0.45 H As with all in vitro diagnostic tests, the test results should be interpreted by the physician in conjunction with clinical findings and other test results.Test results are reported in NEW D-dimer units(ug/mLFEU).[facility] Xjkmh3924-00-08 17:56:00* Test Item Value Reference Range Interpretation Comments Urine Color (test code = 5778-6) YELLOW YELLOW [facility] Ufwyjut9046-11-23 17:56:00* Test Item Value Reference Range Interpretation Comments Urine Clarity (test code = 07215-1) SL CLOUDY CLEAR [facility] Specific Tyyldja0792-64-21 17:56:00 * Test Item Value Reference Range Interpretation Comments Urine Specific [place] (test code = 5811-5) 1.015 1.010-1.02 5 [facility] bY3573-41-75 17:56:00* Test Item Value Reference Range Interpretation Comments Urine pH (test code = 06420-3) 5 5-7 [facility] Leukocyte Irndxdmy9764-69-28 17:56:00* Test Item Value Reference Range Interpretation Comments Urine Leukocyte Esterase (test code = 5799-2) 1+ NEGATIVE H [facility] Vswxymt1105-70-06 17:56:00* Test Item Value Reference Range Interpretation Comments Urine Nitrite (test code = 53607-0) POSITIVE NEGATIVE H [facility] Segftkh1120-70-79 17:56:00* Test Item Value Reference Range Interpretation Comments Urine Protein (test code = 5804-0) NEGATIVE NEGATIVE [facility] Glucose (UA)2018-01-06 17:56:00* Test Item Value Reference Range Interpretation Comments Urine Glucose (UA) (test code = 2349-9) NEGATIVE NEGATIVE [facility] Tnkfyed8849-13-68 17:56:00* Test Item Value Reference Range Interpretation Comments Urine Ketones (test code = 91326-3) NEGATIVE NEGATIVE [facility] Pmawosbfkwqj6879-03-04 17:56:00* Test Item Value Reference Range Interpretation Comments Urine Urobilinogen (test code = 81404-8) 0.2 0.2-1 [facility] Ngdvqlndl5430-52-42 17:56:00* Test Item Value Reference Range Interpretation Comments Urine Bilirubin (test code = 1978-6) NEGATIVE NEGATIVE [facility] Xzixy9471-55-82 17:56:00* Test Item Value Reference Range Interpretation Comments Urine Blood (test code = 97605-1) 2+ NEGATIVE H [facility] (PE/DVT)2018-01-06 17:56:00* Test Item Value Reference Range Interpretation Comments D-Dimer Quantitative (PE/DVT) (test code = 29105-9) 3.57 0. 00-0.45 H As with all in vitro diagnostic tests, the test results should be interpreted by the physician in conjunction with clinical findings and other test results.Test results are reported in NEW D-dimer units(ug/mLFEU).[facility] (PE/DVT)2018-01-06 17:56:00* Test Item Value Reference Range Interpretation Comments D-Dimer Quantitative (PE/DVT) (test code = 37543-6) 3.57 0. 00-0.45 H As with all in vitro diagnostic tests, the test results should be interpreted by the physician in conjunction with clinical findings and other test results.Test results are reported in NEW D-dimer units(ug/mLFEU).[facility] (PE/DVT)2018-01-06 17:56:00* Test Item Value Reference Range Interpretation Comments D-Dimer Quantitative (PE/DVT) (test code = 62654-4) 3.57 0. 00-0.45 H As with all in vitro diagnostic tests, the test results should be interpreted by the physician in conjunction with clinical findings and other test results.Test results are reported in NEW D-dimer units(ug/mLFEU).[facility] (PE/DVT)2018-01-06 17:56:00* Test Item Value Reference Range Interpretation Comments D-Dimer Quantitative (PE/DVT) (test code = 63599-7) 3.57 0. 00-0.45 H As with all in vitro diagnostic tests, the test results should be interpreted by the physician in conjunction with clinical findings and other test results.Test results are reported in NEW D-dimer units(ug/mLFEU).[facility] Quantitative (PE/DVT)2018-01-06 17:56:00* Test Item Value Reference Range Interpretation Comments D-Dimer Quantitative (PE/DVT) (test code = 67896-8) 3.57 0. 00-0.45 H As with all in vitro diagnostic tests, the test results should be interpreted by the physician in conjunction with clinical findings and other test results.Test results are reported in NEW D-dimer units(ug/mLFEU).[facility] Tyler[facility] Quantitative (PE/DVT)2018-01-06 17:56:00* Test Item Value Reference Range Interpretation Comments D-Dimer Quantitative (PE/DVT) (test code = 27313-8) 3.57 0. 00-0.45 H As with all in vitro diagnostic tests, the test results should be interpreted by the physician in conjunction with clinical findings and other test results.Test results are reported in NEW D-dimer units(ug/mLFEU).[facility] Quantitative (PE/DVT)2018-01-06 17:56:00* Test Item Value Reference Range Interpretation Comments D-Dimer Quantitative (PE/DVT) (test code = 08108-5) 3.57 0. 00-0.45 H As with all in vitro diagnostic tests, the test results should be interpreted by the physician in conjunction with clinical findings and other test results.Test results are reported in NEW D-dimer units(ug/mLFEU).[facility] Quantitative (PE/DVT)2018-01-06 17:56:00* Test Item Value Reference Range Interpretation Comments D-Dimer Quantitative (PE/DVT) (test code = 93581-5) 3.57 0. 00-0.45 H As with all in vitro diagnostic tests, the test results should be interpreted by the physician in conjunction with clinical findings and other test results.Test results are reported in NEW D-dimer units(ug/mLFEU).[facility] Quantitative (PE/DVT)2018-01-06 17:56:00* Test Item Value Reference Range Interpretation Comments D-Dimer Quantitative (PE/DVT) (test code = 04338-6) 3.57 0. 00-0.45 H As with all in vitro diagnostic tests, the test results should be interpreted by the physician in conjunction with clinical findings and other test results.Test results are reported in NEW D-dimer units(ug/mLFEU).[facility] Quantitative (PE/DVT)2018-01-06 17:56:00* Test Item Value Reference Range Interpretation Comments D-Dimer Quantitative (PE/DVT) (test code = 55266-7) 3.57 0. 00-0.45 H As with all in vitro diagnostic tests, the test results should be interpreted by the physician in conjunction with clinical findings and other test results.Test results are reported in NEW D-dimer units(ug/mLFEU).[facility] TylerProthrombin Tbuh3750-30-88 17:54:00* Test Item Value Reference Range Interpretation Comments Prothrombin Time (test code = 5902-2) 14.5 11.9-14.5 [facility] TylerProthromb Time International Ratio 2018-01-06 17:54:00* Test Item Value Reference Range Interpretation Comments Prothromb Time International Ratio (test code = 6301-6) 1.22 Oral Anticoagulant Therapy INR Values:1. Low Intensity Therapy 1.5 - 2.02 . Moderate Intensity Therapy 2.0 - 3.03. High Intensity Therapy(1) 2.5 - 3. 54. High Intensity Therapy(2) 3.0 - 4.05. Panic Value INR > 5.0 [facility] Tyler[facility] Partial Thromboplast Time 2018-01-06 17:54:00* Test Item Value Reference Range Interpretation Comments Activated Partial Thromboplast Time (test code = 15519-6) 31.4 23.8-35.5 [facility] NECK W/O PAXJIXQE9269-17-58 16:43:00 Name: MOJGAN CUMMINGS [facility] : 1950 Age/S: 67 / F [address] [facility] Unit #: [id number] Loc: [place] [address] Phys: Ritchie Kerns MD Acct: [id number] Di s Date: Status: UNK PHONE #: Exam Date: 11/07/2017 1527 FAX #: Reason: Evaluate for tracheal stenosis EXAMS: CPT CODE: [id number] CT NECK W/O C ONTRAST 61865 HISTORY: Tracheal stenosi s TECHNIQUE: 2.[address] of the neck without contrast. Sagitt al and coronal reformatted images were generated. Automated exposure contr ol for dose reduction. COMPARISON: None FINDIN GS: Limited evaluation the neck soft tissues without IV contrast . Tracheostomy tube in place. No tracheal stenosis is observed. N o supraglottic or glottic lesion. Nasopharynx, oropharynx, a nd hypopharynx are clear. Tongue, base of tongue, [...] MISTY Jeong CTDI: DLP: Trnscb Date/Time: 11/07/2017 (1703) [email or web address] Orig Print D/T: S: 11/07/2017 (4711) PAGE 1 Signed Report - CT NECK W/O [id number] 16:43:00 Name: MOJGAN CUMMINGS [facility] : 1950 Age/S: 67 / F [address] [facility] Unit #: [id number] Loc: [place] [address] Phys: Ritchie Kerns MD Acct: [id number] Di s Date: Status: UNK PHONE #: Exam Date: 11/07/2017 1525 FAX #: Reason: Evaluate for tracheal stenosis EXAMS: CPT CODE: [id number] CT NECK W/O C ONTRAST 93334 HISTORY: Tracheal stenosi s TECHNIQUE: 2.[address] of the neck without contrast. Sagitt al and coronal reformatted images were generated. Automated exposure contr ol for dose reduction. COMPARISON: None FINDIN GS: Limited evaluation the neck soft tissues without IV contrast . Tracheostomy tube in place. No tracheal stenosis is observed. N o supraglottic or glottic lesion. Nasopharynx, oropharynx, a nd hypopharynx are clear. Tongue, base of tongue, [...] Mark Anthony Kerns MD; Ilan Stein; Oswald Hernández DO Technologist:Cindy ALEXANDRA(R); MISTY Jeong CTDI: DLP: Trnscb Date/Time: 11/07/2017 (408) [email or web address] Orig Print D/T: S: 11/07/2017 (8492) PAGE 1 Signed Report - XR CHEST 1 [id number] 07:27:00 FAX: Mark Anthony Parker MD [phone] [place]: [facility]: [facility] FAX: Ilan Holt MD FAX: Oswald Howard DO [phone] --------- Name: MOJGAN CUMMINGS [facility] : 1950 Age/S: 67/F [address] it #: [id number] Loc: [place] [address] Phys: Mark Anthony Kerns MD Acct: [id number] Dis Date: Status: K PH ONE #: [phone] Exam Date: 11/05/2017512 FAX #: [phone] Reason: REsp Failure EXAMS: CPT CODE: [id number] XR CHEST 1 V 53041 REASON FOR EXAM: REsp Failure EXAM ORDER [...] BRAY, RT(R); Mary Harris Trnscrd Date/Time/By: 2017 (07) : By: GordoL Orig Print D/T: S: 11/05/2017 (0730) PAGE 1 Signed Report - XR CHEST 1 [id number] 07:27:00 FAX: Mark Anthony Parker MD [phone] [place]: St: [facility] FAX: Ilan Holt MD FAX: Oswald Howard DO [phone] Name: MOJGAN CUMMINGS [facility] : 1950 Age/S: 67/F [address] Unit #: [id number] Loc: [place] [address] Phys: Mark Anthony Kerns MD Acct: [id number] Dis Date: Status: [facility] PH ONE #: [phone] Exam Date: 11/05/2017 0513 FAX #: [phone] Reason: REsp Failure EXAMS: CPT CODE: [id number] XR CHEST 1 V 35718 REASON FOR EXAM: REsp Failure EXAM ORDER [...] Harris Trnscrd Date/Time/By: 2017 (0727) : By: [email or web address] Orig Print D/T: S: 11/05/2017 (0730) PAGE 1 Signed Report - XR CHEST 1 [id number] 22:54:00 FAX: Shabbir Puentes MD [place]: St: ADY Name: MOJGAN SAUCEDO [facility] : [birth year] Age/S: 67/F [address] [facility] Unit #: [id number] Loc: [place] [address] Phys: Shabbir Puentes MD Acct: [id number] Dis Date: Status: UNK PHONE #: [phone] Exam Date: 11/03/20172233 FAX #: [phone] Reason: CODE SEPSIS EXAMS: CPT CODE: [id number] XR CHEST 1 V 37990 EXAM: Chest x-ray, one view; INFORMATION: AMS, respiratory distress; IMPRESSION: 1. Lungs are clear; no infiltrates, edema, no effusions. 2. Tracheostomy tube in place. 3. Mild cardiomegaly. at 3280 Reported and signed by: Rex Gates M.D. CC: Shabbir Puentes MD Technologist: SABRINA MarshRNelson Darling Trnscrd Date/Time/By: 11/03/2017 (4339) : By: HarryGRW Orig Print D/T: S: 11/03/2017 (3646) PAGE 1 Signed Report - XR CHEST 1 [id number] 22:54:00 FAX: Shabbir Puentes MD [place]: St: UNK Name: MOJGAN SAUCEDO [facility] : [birth year] Age/S: 67/F [address] [facility] Unit #: [id number] Loc: [place] [address] Phys: Shabbir Puentes MD Acct: [id number] Dis Date: Status: UNK PHONE #: [phone] Exam Date: 11/03/20174 FAX #: [phone] Reason: CODE SEPSIS EXAMS: CPT CODE: [id number] XR CHEST 1 V 74234 EXAM: Chest x-ray, one view; INFORMATION: AMS, respiratory distress; IMPRESSION: 1. Lungs are clear; no infiltrates, edema, no effusions. 2. Tracheostomy tube in place. 3. Mild cardiomegaly. at 7890 Reported and signed by: Rex Gates M.D. CC: Shabbir Puentes MD Technologist: Dwight Salinas RTInesRNelson Darling Trnscrd Date/Time/By: 11/03/2017 (5361) : By: Omar Orig Print D/T: S: 11/03/2017 (0794) PAGE 1 Signed Report - CT HEAD/BRAIN W/O [id number] 22:28:00 Name: MOJGAN CUMMINGS [facility] : 1950 Age/S: 67 / F [address] [facility] Unit #: [id number] Loc: [place] [address] Phys: Shabbir Puentes MD Acct: [id number] Dis Date: Status: UNK PHONE #: [phone] Exam Date: 11/03/20172218 FAX #: [phone] Reason: CODE STROKE EXAMS: CPT CODE: [id number] CT HEAD/BRAIN W/O CONT 75524 EXAM: CT of the head without contrast; [...] CODING PURPOSES ONLY RESULT CODE: CVR at 2925 Reported and signed by: Rex Gates M.D. CC: Shabbir Puentes MD Technologist:Cindy Paredes RT(R); MISTY Jeong CTDI: DLP: Trnscb Date/Time: 11/03/2017 (222) [email or web address] Orig Print D/T: S: 11/03/2017 (9991) PAGE 1 Signed Report - CT HEAD/BRAIN W/O [id number] 22:28:00 Name: MOJGAN CUMMINGS [facility] : 1950 Age/S: 67 / F [address] [facility]: [id number] Loc: [place] [address] Phys: Jayy Puentes MD Acct: [id number] Di s Date: Status: UNK PHONE #: Exam Date: 11/03/20172218 FAX #: [phone] Reason: CODE STROKE EXAMS: CPT CODE: [id number] CT HEAD/BRAIN W/O CONT 04609 EXAM: CT of the head with out [...] MISTY Salgado TDI: DLP: Trnscb Date/Time: 11/03/2017 (222) HarryGRW Orig Print D/T: S: 11/03/2017 (6350) PAGE 1 Signed Report - XR CHEST 1 [id number] 09:09:00 FAX: Mark Anthony Parker MD [phone] [place]: St: [facility] FAX: Ilan Holt MD Name: MOJGAN CUMMINGS [facility] : 1950 Age/S: 67/F [address] [facility] Unit #: [id number] Loc: [place] [address] Phys: Mark Anthony Kerns MD Acct: [id number] Dis Date: Status: UNK PHONE #: [phone] Exam Date: 10/07/2017817 FAX #: [phone] Reason: resp failure EXAMS: CPT CODE: [id number] XR CHEST 1 V 13420 HISTORY: Respiratory failure. COMPARISON: October 04, 2017. [...] [email or web address] Orig Print D/T: S: 10/07/19 18 (9402) PAGE 1 Signed Report - XR CHEST 1 [id number] 09:09:00 FAX: Mark Anthony Parker MD [phone] [place]: [facility]: [employer] FAX: Ilan Holt MD Name: MOJGAN CUMMINGS [facility] : 1950 Age/S: 67/F [address] [facility] Unit #: [id number] Loc: [place] [address] Phys: Mark Anthony Kerns MD Acct: [id number] Dis Date: Status: UNK PHONE #: [phone] Exam Date: 10/07/2017817 FAX #: [phone] Reason: resp failure EXAMS: CPT CODE: [id number] XR CHEST 1 V 35668 HISTORY: Respiratory failure. COMPARISON: October 04, 2017. [...] [email or web address] Orig Print D/T: S: 10/07/19 18 (7312) PAGE 1 Signed Report - XR CHEST 1 [id number] 04:58:00 FAX: Mark Anthony Parker MD [phone] [place]: [facility]: [employer] FAX: Ilan Holt MD Name: MOJGAN CUMMINGS [facility] : 1950 Age/S: 67/F [address] Unit #: [id number] Loc: [facility] [place] [address] Phys: Mark Anthony Kerns MD Acct: [id number] Dis Date: Status: UNK PHONE #: [phone] Exam Date: 10/04/2017 0441 FAX #: [phone] Reason: Resp Failure EXAMS: CPT CODE: [id number] XR CHEST 1 V 29123 HISTORY: Respiratory failure Location: C3 C OMPARISON:10/02/2017 [...] Darling Trnscrd Date/Time/By: 10/04/2017 (0458) : By: [email or web address] Orig Print D/T: S: 10/04/2017 (0507) PAGE 1 Signed Report - XR CHEST 1 [id number] 04:58:00 FAX: Mark Anthony Parker MD [phone] [place]: St: [facility] FAX: Ilan Holt MD Name: MOJGAN CUMMINGS [facility] : 1950 Age/S: 67/F [address] Unit #: [id number] Loc: [place] [address] Phys: Mark Anthony Kerns MD Acct: [id number] Dis Date: Status: UNK PHONE #: [phone] Exam Date: 10/04/20178 FAX #: [phone] Reason: Resp Failure EXAMS: CPT CODE: [id number] XR CHEST 1 V 72919 HISTORY: Respiratory failure Location: C3 COMPARISON:10/02/2017 FINDINGS: There is cardiomegaly with vascular congestion perihilar edema. Tracheostomy tube is demonstrated. Right IJ central line is present. No pneumothorax. Bibasilar opacities are present. IMPRESSION: 1. Cardiomegaly with vascular congestion mild perihilar edema as well as basilar opacities compatible with areas of atelectasis and/or edema. at 045 Reported and signed by: Misty Vizcarra MD CC: Mark Anthony [place] MD; Ilan Stein Technologist: Abigail Darling Trnnmrd Date/Time/By: 10/04/2017 (0458) : By: [email or web address] Orig Print D/T: S: 10/04/2017 (0504) PAGE 1 Signed Report - XR CHEST 1 [id number] 07:21:00 FAX: Mark Anthony Parker MD [phone] [place]: St: [facility] FAX: Ilan Holt MD Name: MOJGAN CUMMINGS [facility] : 1950 Age/S: 67/F [address] Unit #: [id number] Loc: [place] [address] Phys: Mark Anthony Kerns MD Acct: [id number] Dis Date: Status: UNK PHONE #: [phone] Exam Date: 10/02/2017518 FAX #: [phone] Reason: Resp Failure EXAMS: CPT CODE: [id number] XR CHEST 1 V 22335 HISTORY: Pneumonia. COMPARISON: September 30, 2017. Right [...] By: [email or web address] Orig Print D/T: S: 10/02/2017 (0793) PAGE 1 Signed Report - XR CHEST 1 [id number] 07:21:00 FAX: Mark Anthony Parker MD [phone] [place]: St: [facility] FAX: Ilan Holt MD Name: MOJGAN CUMMINGS [facility] : 1950 Age/S: 67/F [address] [facility] Unit #: [id number] Loc: [place] [address] Phys: Mark Anthony Kerns MD Acct: [id number] Dis Date: Status: UNK PHONE #: [phone] Exam Date: 10/02/2017518 FAX #: [phone] Reason: Resp Failure EXAMS: CPT CODE: [id number] XR CHEST 1 V 35312 HISTORY: Pneumonia. COMPARISON: September 30, 2017. Right central line and tracheostomy tube are unchanged. Patchy left lung infiltrate appears improved. Dependent changes. Cardiomegaly. IMPRESSION: Patchy left lung infiltrate is unchanged. at 4056 Reported and signed by: Clem Grissom M.D. CC: Mark Anthony Kerns MD; Ilan Stein Technologist: JERAMIE LOPEZ, RT(R); Mary Harris Trnscrd Date/Time/By: 10/02/2017 (0721) : By: [email or web address] Orig Print D/T: S: 0 10/02/2017 (4748) PAGE 1 Signed Re port - XR CHEST 1 [id number] 07:53:00 FAX: Ilan Holt MD [place]: St: [facility] FAX: Noé Nielsen MD [phone] Name: MOJGAN CUMMINGS [facility] : 1950 Age/S: 67/F [address] [facility] Unit #: [id number] Loc: [place] [address] Phys: Noé Morton MD Acct: [id number] Dis Date: Status: UNK PHONE #: [phone] Exam Date: 09/30/2017 0415 FAX #: [phone] Reason: pneumonai EXAMS: CPT CODE: [id number] XR CHEST 1 V 23265 REASON FOR EXAM: pneumonai EXAM ORDER DATE: [...] in the expected position and location. at 0755 Reported and signed by: Brayan Toro M.D. CC: Ilan Stein; Noé Morton MD Technologist: OCTAVIO VASQUEZ JR; Abigail Darling Trnscrd Date/Time/By: 09/30/2017 (0753) : By: GordoL Orig Print D/T: S: 09/30/2017 (0756) PAGE 1 Signed Report - XR CHEST 1 [id number] 07:53:00 FAX: Ilan Holt MD [place]: St: [facility] FAX: Noé Nielsen MD [phone] Name: MOJGAN CUMMINGS [facility] : 1950 Age/S: 67/F [address] [facility] Unit #: [id number] Loc: [place] [address] Phys: Noé Morton MD Acct: [id number] Dis Date: Status: K PHONE #: [phone] Exam Date: 09/30/2017 0415 FAX #: [phone] Reason: pneumonai EXAMS: CPT CODE: [id number] XR CHEST 1 V 40943 REASON FOR EXAM: pneumonai EXAM ORDER DATE: [...] 1 Signed Report - XR CHEST 1 [id number] 06:58:00 FAX: Ilan Holt MD [place]: St: [facility] FAX: Melinda Burns MD Name: MOJGAN CUMMINGS [facility] : 1950 Age/S: 67/F [address] [facility] Unit #: [id number] Loc: [facility] [place] [address] Phys: Melinda Burns MD Acct: [id number] Dis Date: Status: UNK PHONE #: [phone] Exam Date: 09/28/2017 0557 FAX #: [phone] Reason: sob/ acute resp failure EXAMS: CPT CODE: [id number] XR CHEST 1 V 68704 REASON FOR EXAM: sob/ acute resp failure [...] Burns MD Technologist: OCTAVIO Darling Trnscrd Date/Time/By: 09/28/2017 (0658) : By: GordoL Orig Print D/T: S: 09/28/2017 (0702) PAGE 1 Signed R eport - XR CHEST 1 [id number] 06:58:00 FAX: Ilan Holt MD [place]: St: [facility] FAX: Melinda Burns MD Name: MOJGAN CUMMINGS [facility] : 1950 Age/S: 67/F [address] [facility] Unit #: [id number] Loc: [place] [address] Phys: Melinda Burns MD Acct: [id number] Dis Date: Status: UNK PHONE #: [phone] Exam Date: 09/28/2017556 FAX #: [phone] Reason: sob/ acute resp failure EXAMS: CPT CODE: [id number] XR CHEST 1 V 58958 REASON FOR EXAM: sob/ acute resp failure [...] Burns MD Technologist: OCTAVIO Darling Trnscrd Date/Time/By: 09/28/2017 (7658) : By: HarryVTL Orig Print D/T: S: 09/28/2017 (8595) PAGE 1 Signed R eport - XR CHEST 1 [id number] 17:34:00 FAX: Nigel Smith [place]: St: [facility] FAX: Ilan Holt MD Name: MOJGAN CUMMINGS [facility] : 1950 Age/S: 67/F [address] [facility] Unit #: [id number] Loc: [place] [address] Phys: Nigel Jones MD Acct: [id number] Dis Date: Status: UNK PHONE #: [phone] Exam Date: 09/27/2017 171 FAX #: [phone] Reason: INITIAL ET TUBE PLACEMENT EXAMS: CPT CODE: [id number] XR CHEST 1 V 39631 HISTORY: ET tube placement. COMPARISON: Same day. ET tube is above the marlyn. Right jugular central line with the tip projected over the SVC. NG tube is not seen. Mild congestion with small basal effusions. Cardiomegaly. IMPRESSION: ET tube is above the marlyn. Mild congestion. at 2539 Reported and signed by: Clem Grissom M.D. CC: Nigel Jones MD; Ilan Stein Technologist: Misty florentino RT(R) Trnscrd Date/Time/By: 09/27/2017 ( 1734) : By: [email or web address] Orig Print D/T: S: 09/27/2017 (7659) PAGE 1 Signed Report - XR CHEST 1 [id number] 17:34:00 FAX: Nigel Smith [place]: B St: [facility] FAX: Ilan Holt MD Name: MOJGAN CUMMINGS [facility] : 1950 Age/S: 67/F [address] [facility] Unit #: [id number] Loc: [facility] [place] [address] Phys: Nigel Jones MD Acct: [id number] Dis Date: Status: UNK PHONE #: [phone] Exam Date: 09/27/2017 1710 FAX #: [phone] Reason: INITIAL ET TUBE PLACEMENT EXAMS: CPT CODE: [id number] XR CHEST 1 V 55861 HISTORY: ET tube placement. COMPARISON: Same day. ET tube is above the marlyn. Right jugular central line with the tip projected over the SVC. NG tube is not seen. Mild congestion with small basal effusions. Cardiomegaly. IMPRESSION: ET tube is above the marlyn. Mild congestion. at 1730 Reported and signed by: Clem Grissom M.D. CC: Nigel Jones MD; Ilan Stein Technologist: Misty ALEXANDRA(R) Trnscrd Date/Time/By: 09/27/2017 (4115) : By: [email or web address] Orig Print D/T: S: 09/27/2017 (4971) PAGE 1 Signed Report - XR CHEST 1 V 2017-09-27 07:51:00 FAX: Mark Anthony Parker MD [phone] [place]: B St: [facility] FAX: Ilan Holt MD Name: MOJGAN CUMMINGS [facility] : 1950 Age/S: 67/F [address] Unit #: [id number] Loc: [place] [address] Phys: Mark Anthony Kerns MD Acct: [id number] Dis Date: Status: UNK PHONE #: [phone] Exam Date: 09/27/2017532 FAX #: [phone] Reason: Resp Failure EXAMS: CPT CODE: [id number] XR CHEST 1 V 22408 REASON FOR EXAM: Resp Failure EXAM ORDER DATE: 09/27/2017 6:00 AM Ordering Crispin: Mark Anthony Kerns [...] Kerns MD; Ilan Stein Technologist: OCTAVIO Darling Trnscrd Date/Time/By: 09/27/2017 (0751) : By: HarryVTL Orig Print D/T: S: 09/27/2017 (0754) PAGE 1 Signed Report - XR CHEST 1 [id number] 07:51:00 FAX: Mark Anthony Parker MD [phone] [place]: St: [facility] FAX: Ilan Holt MD Name: MOJGAN CUMMINGS [facility] : 1950 Age/S: 67/F [address] Unit #: [id number] Loc: [place] [address] Phys: Mark Anthony Kerns MD Acct: [id number] Dis Date: Status: UNK PHONE #: [phone] Exam Date: 09/27/2017 0533 FAX #: [phone] Reason: Resp Failure EXAMS: CPT CODE: [id number] XR CHEST 1 V 05655 REASON FOR EXAM: Resp Failure EXAM ORDER DATE: 09/27/2017 6:00 AM Ordering M.Madison: Mark Anthony Kerns MD PROCEDURE: - XR [...] Anthony Kerns MD; Brayden Stein Technologist: OCTAVIO Darling Trnnmrd Date/Time/By: 09/27/2017 (0751) : By: GordoL O rig Print D/T: S: 09/27/2017 (0754) PAGE 1 Signed Report - XR CHEST 1 [id number] 07:46:00 FAX: Ilan Holt MD [place]: St: [facility] FAX: Melinda Burns MD Name: MOJGAN CUMMINGS [facility] : 1950 Age/S: 67/F [address] Unit #: [id number] Loc: [place] [address] Phys: Melinda Burns MD Acct: [id number] Dis Date: Status: UNK PHONE #: [phone] Exam Date: 09/26/2017 0538 FAX #: [phone] Reason: sob/ acute resp failure EXAMS: CPT CODE: [id number] XR CHEST 1 V 02983 REASON FOR EXAM: sob/ acute resp failure [...] pulmonary edema and small bilateral effusions. at 5808 Reported and signed by: Brayan Toro M.D. CC: Ilan Stein; Melinda Burns MD Technologist: OCTAVIO Darling Trnscrd Date/Time/By: 09/26/2017 (0746) : By: HarryVTL Orig Print D/T: S: 09/26/2017 (0749) PAGE 1 Signed Report - XR CHEST 1 [id number] 07:46:00 FAX: Ilan Holt MD [place]: St: [facility] FAX: Melinda Burns MD Name: MOJGAN CUMMINGS [facility] : 1950 Age/S: 67/F [address] Unit #: [id number] Loc: [place] [address] Phys: Melinda Burns MD Acct: [id number] Dis Date: Status: UNK PHONE #: [phone] Exam Date: 09/26/2017537 FAX #: [phone] Reason: sob/ acute resp failure EXAMS: CPT CODE: [id number] XR CHEST 1 V 80846 REASON FOR EXAM: sob/ acute resp failure [...] 1 Signed Report - XR CHEST 1 [id number] 07:17:00 FAX: Ilan Holt MD [place]: St: [facility] FAX: Melinda Burns MD Name: MOJGAN CUMMINGS [facility] : 1950 Age/S: 67/F [address] Unit #: [id number] Loc: [place] [address] Phys: Melinda Burns MD Acct: [id number] Dis Date: Status: UNK PHONE #: [phone] Exam Date: 09/25/2017522 FAX #: [phone] Reason: sob/ acute resp failure EXAMS: CPT CODE: [id number] XR CHEST 1 V 10178 CLINICAL HISTORY: Shortness of breath; acute resp [...] By: [email or web address] Orig Print D/T: S: 09/25/2017 (0762) PAGE 1 Signed Report - XR CHEST 1 [id number] 07:17:00 FAX: Ilan Holt MD [place]: St: [facility] FAX: Melinda Burns MD Name: ZOILAMOJGAN MOLINA [facility] : 1950 Age/S: 67/F [address] Unit #: [id number] Loc: [place] [address] Phys: Melinda Burns MD Acct: [id number] Dis Date: Status: [employer] PHONE #: [phone] Exam Date: 09/25/2017522 FAX #: [phone] Reason: sob/ acute resp failure EXAMS: CPT CODE: [id number] XR CHEST 1 V 07489 CLINICAL HISTORY: Shortness of breath; acute resp failure TECHNIQUE: AP chest x-ray COMPARISON: Previous day. IMPRESSION: Worsening airspace consolidation and pleural effusions. Cardiomegaly with pulmonary congestion. ET tube, NG tube, and right central venous catheter. at 0717 Reported and signed by: Lenka Farrar D.O. CC: Ilan Stein; Melinda Burns MD Technologist: JUNAID BRAY, RT(R); Mary Harris Trnscrd Date/Time/By: 09/25/2017 (716) : By: [email or web address] Orig Print D/T: S: 09/25/2017 (4744) PAGE 1 Signed Report - XR CHEST 1 [id number] 08:12:00 FAX: Ilan Holt MD [place]: St: [facility] FAX: Melinda Burns MD Name: MOJGAN CUMMINGS [facility] : 1950 Age/S: 67/F [address] [facility] Unit #: [id number] Loc: [place] [address] Phys: Melinda Burns MD Acct: [id number] Dis Date: Status: UNK PHONE #: [phone] Exam Date: 09/24/2017525 FAX #: [phone] Reason: sob/ acute resp failure EXAMS: CPT CODE: [id number] XR CHEST 1 V 94449 REASON FOR EXAM: sob/ acute resp failure EXAM ORDER DATE: 09/24/2017 5:00 AM Ordering M.DFaye: Melinda Burns MD PROCEDURE: - XR CHEST [...] Ilan Stein; Melinda Burns MD Technologist: RT CSICO(R); Mary Harris Trnscrd Date/Time/By: 09/24/2017 (811) : By: [email or web address] Orig Print D/T: S: 09/24/2017 (815) PAGE 1 Signed Report - XR CHEST 1 [id number] 08:12:00 FAX: Ilan Holt MD [place]: St: [facility] FAX: Melinda Burns MD Name: MOJGAN CUMMINGS [facility] : 1950 Age/S: 67/F [address] [facility] Unit #: [id number] Loc: [place] [address] Phys: Melinda Burns MD Acct: [id number] Dis Date: Status: UNK PHONE #: [phone] Exam Date: 09/24/2017525 FAX #: [phone] Reason: sob/ acute resp failure EXAMS: CPT CODE: [id number] XR CHEST 1 V 54739 REASON FOR EXAM: sob/ acute resp failure [...] BRAY, RT(R); Mary Harris Trnscrd Date/Time/By: 09/24/2017 (08) : By: [email or web address] Orig Print D/T: S: 09/24/2017 (3016) PAGE 1 Signed Report - XR CHEST 1 [id number] 11:26:00 FAX: Ilan Holt MD [place]: St: [facility] FAX: Melinda Burns MD Name: MOJGAN CUMMINGS [facility] : 1950 Age/S: 67/F [address] [facility] Unit #: [id number] Loc: [place] [address] Phys: Melinda Burns MD Acct: [id number] Dis Date: Status: UNK PHONE #: [phone] Exam Date: 09/23/2017 1105 FAX #: [phone] Reason: sob/ acute resp failure EXAMS: CPT CODE: [id number] XR CHEST 1 V 37618 HISTORY: Shortness of breath and respiratory failure. COMPARISON: September 22, 2017. The line and tubes are unchanged. Dense worsening right lung infiltrate and patchy left lower lobe infiltrate with small bibasal effusions and subsegmental atelectasis. Cardiomegaly. IMPRESSION: Worsening bilateral infiltrates, greater on the right. at 1126 Reported and signed by: Clem Grissom M.D. CC: Torsten Stein Cindy MD Technologist: RT ALEE(R) Trnbharti Date/Time/By: 09/23/2017 (1126) : By: [email or web address] Orig Print D/T: S: 09/26/2017 (0958) PAGE 1 Signed Report - XR CHEST 1 [id number] 11:26:00 FAX: Ilan Holt MD [place]: St: [facility] FAX: Melinda Burns MD Name: MOJGAN CUMMINGS [facility] : 1950 Age/S: 67/F [address] [facility] Unit #: [id number] Loc: [place] [address] Phys: Melinda Burns MD Acct: [id number] Dis Date: Status: UNK PHONE #: [phone] Exam Date: 09/23/2017 1105 FAX #: [phone] Reason: sob/ acute resp failure EXAMS: CPT CODE: [id number] XR CHEST 1 V 36181 HISTORY: Shortness of breath and respiratory failure. COMPARISON: September 22, 2017. The line and tubes are unchanged. Dense worsening right lung infiltrate and patchy left lower lobe infiltrate with small bibasal effusions and subsegmental atelectasis. Cardiomegaly. IMPRESSION: Worsening bilateral infiltrates, greater on the right. at 1126 Reported and signed b y: Clem Grissom M.D. CC: Torsten Stein Cindy M D Technologist: RT ALEE(R) Trnbharti Date/Time/By: 09/23/2017 (1126) : By: [email or web address] Orig Print D/T: S: 09/26/2017 (0945) PAGE 1 Signed Report - XR CHEST 1 [id number] 12:05:00 FAX: Ilan Holt MD [place]: [facility]: [facility] FAX: Melinda Burns MD Name: MOJGAN CUMMINGS [facility] : 1950 Age/S: 67/F [address] Unit #: [id number] Loc: [place] [address] Phys: Melinda Burns MD Acct: [id number] Dis Date: Status: UNK PHONE #: [phone] Exam Date: 09/22/2017 1206 FAX #: [phone] Reason: sob/ s/p intubation EXAMS: CPT CODE: [id number] XR CHEST 1 V 25539 HISTORY: Shortness of breath and postintubation. COMPARISON: [...] Ilan Stein; Melinda Burns MD Technologist: RT ALEE(Ivan) Trnnmbrigid Date/Time/By: 09/22/2017 (9122) : By: [email or web address] Orig Print D/T: S: 09/22/2017 (6926) PAGE 1 Signed Report - XR CHEST 1 [id number] 12:05:00 FAX: Ilan Holt MD [place]: B St: UNK FAX: Melinda Burns MD Name: MOJGAN CUMMINGS [facility] : 1950 Age/S: 67/F [address] [facility] Unit #: [id number] Loc: [place] [address] Phys: Melinda Burns MD Acct: [id number] Dis Date: Status: UNK PHONE #: [phone] Exam Date: 09/22/2017 1206 FAX #: [phone] Reason: sob/ s/p intubation EXAMS: CPT CODE: [id number] XR CHEST 1 V 51011 HISTORY: Shortness of breath and postintubation. COMPARISON: [...] Stein; Melinda Burns MD Technologist: RT ALEE(R) Trntingrd Date/Time/By: 09/22/2017 (3936) : By: [email or web address] Orig Print D/T: S: 09/22/2017 (5021) PAGE 1 Signed Report - XR CHEST 1 [id number] 07:33:00 FAX: Ilan Holt MD [place]: B St: UN FAX: Melinda Burns MD Name: MOJGAN CUMMINGS [facility] : 1950 Age/S: 67/F [place] Unit #: [id number] Loc: [place] [address] Phys: Melinda Burns MD Acct: [id number] Dis Date: Status: UNK PHONE #: [phone] Exam Date: 09/22/2017526 FAX #: [phone] Reason: sob/ acute resp failure EXAMS: CPT CODE: [id number] XR CHEST 1 V 04036 REASON FOR EXAM: sob/ acute resp failure [...] edema and small bilateral pleural effusions. at 0750 Reported and signed by: Brayan Toro M.D. CC: Ilan Stein; Melinda Burns MD Technologist: OCTAVIO Darling Trnscrd Date/Time/By: 09/22/2017 (0733) : By: GordoL Orig Print D/T: S: 09/22/2017 (0736) PAGE 1 Signed Report - XR CHEST 1 [id number] 07:33:00 FAX: Ilan Holt MD [place]: St: [facility] FAX: Melinda Burns MD Name: MOJGAN CUMMINGS [facility] : 1950 Age/S: 67/F [place] Unit #: [id number] Loc: [place] [address] Phys: Melinda Burns MD Acct: [id number] Dis Date: Status: UNK PHONE #: [phone] Exam Date: 09/22/2017526 FAX #: [phone] Reason: sob/ acute resp failure EXAMS: CPT CODE: [id number] XR CHEST 1 V 13515 REASON FOR EXAM: sob/ acute resp failure [...] edema and small bilateral pleural effusions. at 0711 Reported and signed by: Brayan Toro M.D. CC: Ilan Stein; Melinda Burns MD Technologist: OCTAVIO Darling Trnscrd Date/Time/By: 09/22/2017 (0796) : By: [email or web address] Orig Print D/T: S: 09/22/2017 (0755) PAGE 1 Signed Report - XR CHEST 1 [id number] 06:00:00 FAX: Mark Anthony Parker MD [phone] [place]: B St: [facility] FAX: Ilan Holt MD Name: MOJGAN CUMMINGS [facility] : 1950 Age/S: 67/F [address] Unit #: [id number] Loc: [place] [address] Phys: Mark Anthony Kerns MD Acct: [id number] Dis Date: Status: UNK PHONE #: [phone] Exam Date: 09/21/2017 0549 FAX #: [phone] Reason: REsp failure EXAMS: CPT CODE: [id number] XR CHEST 1 V 23163 HISTORY: Respiratory failure Location: C3 COMPARISON:09/20/2017 FINDINGS: [...] Trnscrd Date/Alcon e/By: 09/21/2017 (0600) : By: [email or web address] Orig Print D/T: S: 09/21/2017 (0603) PAGE 1 Signed Report - XR CHEST 1 [id number] 06:00:00 FAX: Mark Anthony Parker MD [phone] [place]: St: [facility] FAX: Ilan Holt MD Name: MOJGAN CUMMINGS [facility] : 1950 Age/S: 67/F [address] Unit #: [id number] Loc: [place] [address] Phys: Mark Anthony Kerns MD Acct: [id number] Dis Date: Status: UNK PHONE #: [phone] Exam Date: 09/21/2017 0549 FAX #: [phone] Reason: REsp failure EXAMS: CPT CODE: [id number] XR CHEST 1 V 84076 HISTORY: Respiratory failure Location: C3 C OMPARISON:09/20/2017 [...] ologist: OCTAVIO Darling Trnscrd Date/Alcon e/By: 09/21/2017 (06) : By: [email or web address] Orig Print D/T: S: 09/21/2017 (0603) PAGE 1 Signed Report - CT CHEST W/O [id number] 16:00:00 Name: MOJGAN CUMMINGS [facility] : 1950 Age/S: 67 / F [address] Unit #: [id number] Loc: [place] [address] Phys: David Burns MD Acct: [id number] Di s Date: Status: UNK PHONE #: [phone] Exam Date: 09/20/2017 1548 FAX #: Reason: SOB/ ACUTE RESP FAILURE EXAMS: CPT CODE: [id number] CT CHEST W/O CONTRAST 61274 HISTORY: Shortness of jerome ath; ACUTE RESP [...] (1600) [email or web address] Orig Print D/T: S: 09/20/2017 (0863) PAGE 1 Signed Report - CT CHEST W/O CONTRAST 2017-09-20 16:00:00 Name: MOJGAN CUMMINGS [facility] : 1950 Age/S: 67 / F [address] [facility] Unit #: [id number] Loc: [place] [address] Phys: Melinda Burns MD Acct: [id number] Dis Date: Status: UNK PHONE #: [phone] Exam Date: 09/20/2017 1548 FAX #: [phone] Reason: SOB/ ACUTE RESP FAILURE EXAMS: CPT CODE: [id number] CT CHEST W/O CONTRAST 96809 HISTORY: Shortness of breath; ACUTE RESP FAILURE [...] RT(R),(MR),(CT); CTDI: DLP: Trnscb Date/Time: 09/20/2017 (1600) [email or web address] Orig Print D/T: S: 09/20/2017 (2792) PAGE 1 Signed Report - CT HEAD/BRAIN W/O CONT 2017-09-20 15:52:00 Name: MOJGAN CUMMINGS [facility] : 1950 Age/S: 67 / F [address] [facility] Unit #: [id number] Loc: [place] [address] Phys: Ilan Stein MD Acct: [id number] Dis Date: Status: UNK PHONE #: [phone] Exam Date: 09/20/2017 1548 FAX #: [phone] Reason: AMS EXAMS: CPT CODE: [id number] CT HEAD/BRAIN W/O CONT 63382 HISTORY: Altered mental status TECHNIQUE: Noncontrast 2.5 [...] Cortes RT(R),(MR),(CT); CTDI: DLP: Trnscb Date/Time: 09/20/2017 (5042) [email or web address] Orig Print D/T: S: 09/20/2017 (4617) PAGE 1 Signed Report - CT HEAD/BRAIN W/O [id number] 15:52:00 Name: MOJGAN CUMMINGS [facility] : 1950 Age/S: 67 / F [address] [facility] Unit #: [id number] Loc: [facility] [place] [address] Phys: Brayden Stein MD Acct: [id number] Di s Date: Status: UNK PHONE #: Exam Date: 09/20/2017 1548 FAX #: [phone] Reason: AMS EXAMS: CPT CODE: [id number] CT HEAD/BRAIN W/O CONT 18177 HISTORY: Altered mental status TECHNIQUE: Noncontrast 2.5 [...] by Lenka Farrar D.O. on 09/20/2017 at 1558 Reporte d and signed by: Lenka Farrar D.O. CC: Ilan Stein Technologist:Dmitri Cortes RT(R),(MR),(CT); CTDI: D LP: Trnscb Date/Time: 09/20/2017 (7964) [email or web address] Orig Print D/T: S: 09/20/2017 (6223) PAGE 1 Signed R eport - XR CHEST 1 [id number] 05:55:00 FAX: Mark Anthony Parker MD [phone] [place]: St: [facility] FAX: Ilan Holt MD Name: MOJGAN CUMMINGS [facility] : 1950 Age/S: 67/F [address] [facility] Unit #: [id number] Loc: [place] [address] Phys: Mark Anthony Kerns MD Acct: [id number] Dis Date: Status: UNK PHONE #: [phone] Exam Date: 09/20/2017 05 FAX #: [phone] Reason: REsp Failure EXAMS: CPT CODE: [id number] XR CHEST 1 V 58269 HISTORY: Respiratory failure Location: C3 C OMPARISON:09/19/2017 FINDINGS: Endotracheal tube and n asogastric tube as well as right IJ central line are again demonstrated. There is cardiomegaly with vascular congestion and perihilar edema. No pneumothorax. No other changes. IMPRESSION: 1. Vascular congestion and perihilar edema similar to prior study. at 1751 Reported and signed by: Misty Vizcarra MD CC: Mark Anthony Kerns MD; Ilan Stein Technologist: OCTAVIO VASQUEZ JR Trnscrd Date/Time/By: 018 (9005) : By: [email or web address] Orig Print D/T: S: 09/20/2017 (4985) PAGE 1 Signed Report - XR CHEST 1 [id number] 05:55:00 FAX: Mark Anthony Parker MD [phone] [place]: St: [facility] FAX: Ilan Holt MD Name: MOJGAN CUMMINGS [facility] : 1950 Age/S: 67/F [address] [facility] Unit #: [id number] Loc: [place] [address] Phys: Mark Anthony Kerns MD Acct: [id number] Dis Date: Status: UNK PHONE #: [phone] Exam Date: 09/20/2017522 FAX #: [phone] Reason: REsp Failure EXAMS: CPT CODE: [id number] XR CHEST 1 V 68681 HISTORY: Respiratory failure Location: C3 C OMPARISON:09/19/2017 FINDINGS: Endotracheal tube and n asogastric tube as well as right IJ central line are again demonstrated. There is cardiomegaly with vascular congestion and perihilar edema. No pneumothorax. No other changes. IMPRESSION: 1. Vascular congestion and perihilar edema similar to prior study. at 0519 Reported and signed by: Misty Vizcarra MD CC: Mark Anthony Kerns MD; Ilan Stein Technologist: OCTAVIO VASQUEZ JR Trnscrd Date/Time/By: 018 (0556) : By: [email or web address] Orig Print D/T: S: 09/20/2017 (0361) PAGE 1 Signed Report - XR CHEST 1 [id number] 09:04:00 FAX: Ilan Holt MD [place]: St: [facility] FAX: Melinda Burns MD Name: MOJGAN CUMMINGS [facility] : 1950 Age/S: 67/F [address] [facility] Unit #: [id number] Loc: [facility] [place] [address] Phys: Melinda Burns MD Acct: [id number] Dis Date: Status: K PHONE #: [phone] Exam Date: 09/19/2017 0339 FAX #: [phone] Reason: sob/ acute resp failure EXAMS: CPT CODE: [id number] XR CHEST 1 V 89457 REASON FOR EXAM: sob/ acute resp failure [...] ALEE(R) Trnscrd Date/Time/By: 09/19/2017 (0904) : By: Rodrigo Orig Print D/T: S: 09/19/2017 (4407) PAGE 1 Signed Report - XR CHEST 1 [id number] 09:04:00 FAX: Ilan Holt MD [place]: B St: UNK FAX: Melinda Burns MD Name: MOJGAN CUMMINGS [facility] : 1950 Age/S: 67/F [address] [facility] Unit #: [id number] Loc: [place] [address] Phys: Melinda Burns MD Acct: [id number] Dis Date: Status: UNK PHONE #: [phone] Exam Date: 09/19/2017 0339 FAX #: [phone] Reason: sob/ acute resp failure EXAMS: CPT CODE: [id number] XR CHEST 1 V 93208 REASON FOR EXAM: sob/ acute resp failure [...] 1 Signed Report - XR CHEST 1 [id number] 08:18:00 FAX: Ilan Holt MD [place]: St: UNK Name: MOJGAN SAUCEDO [facility] : [birth year] Age/S: 67/F [address] Unit #: [id number] Loc: [place] [address] Phys: Ilan Stein MD Acct: [id number] Dis Date: Status: UNK PHONE #: [phone] Exam Date: 09/18/2017529 FAX #: [phone] Reason: PNA/CHF EXAMS: CPT CODE: [id number] XR CHEST 1 V 68076 CLINICAL HISTORY: Pneumonia, CHF TECHNIQUE: AP chest x-ray COMPARISON: Previous day. IMPRESSION: No significant interval change. Dalia ateral perihilar airspace consolidation. Patchy bilateral interstitial o pacities. Small right pleural effusion. Cardiomegaly. ET tube, NG tube, and right central venous catheter. at 0818 Reported and signed by: Lenka Farrar D.O. CC: Ilan Stein Technologist: JUNAID BRAY, RT(R); Mary Zendejas Trnscrd Date/Time/By: 09/18/2017 (0818) : By: HarryLDP 1 Orig Print D/T: S: 09/18/2017 (0821) PAGE 1 Signed Report - XR CHEST 1 V 2017-09-18 08:18:00 FAX: Ilan Holt MD [place]: B St: [facility] Name: MOJGAN SAUCEDO [facility] : [birth year] Age/S: 67/F [address] Unit #: [id number] Loc: [place] [address] Phys: Ilan Stein MD Acct: [id number] Dis Date: Status: UNK PHONE #: [phone] Exam Date: 09/18/2017529 FAX #: [phone] Reason: PNA/CHF EXAMS: CPT CODE: [id number] XR CHEST 1 V 16777 CLINICAL HISTORY: Pneumonia, CHF TECHNIQUE: AP chest x-ray COMPARISON: Previous day. IMPRESSION: No significant interval change. Dalia ateral perihilar airspace consolidation. Patchy bilateral interstitial o pacities. Small right pleural effusion. Cardiomegaly. ET tube, NG tube, and right central venous catheter. at 0818 Reported and signed by: Lenka Farrar D.O. CC: Ilan Stein Technologist: JUNAID BRAY RT(R); Mary Zendejas Trnscrd Date/Time/By: 09/18/2017 (0818) : By: HarryLDP 1 Orig Print D/T: S: 09/18/2017 (820) PAGE 1 Signed Report - XR CHEST 1 V 2017-09-17 17:47:00 FAX: Ilan Holt MD [place]: St: [facility] FAX: Melinda Burns MD Name: MOJGAN CUMMINGS [facility] : 1950 Age/S: 67/F [address] Unit #: [id number] Loc: [place] [address] Phys: Melinda Burns MD Acct: [id number] Dis Date: Status: [employer]NS[employer]ipe PHONE #: [phone] Exam Date: 09/17/20171735 FAX #: [phone] Reason: CENTRAL LINE PLACEMENT EXAMS: CPT CODE: [id number] XR CHEST 1 V 12098 CLINICAL HISTORY: Pneumonia; CENTRAL LINE PLACEMENT TECHNIQUE: AP chest x- ray COMPARISON: 09/07/17 IMPRESSION: Interval placement of right IJ central venous catheter with distal tip in the proximal SVC. Interval placement of ET tube 1.5 cm above the marlyn. Interval placement of NG tube which extends below the diaphragm. No pneumothorax or other significant change compared to the previous study. at 3686 Reported and signed by: Lenka Farrar D.O. CC: Ilan Stein; Melinda Burns MD Technologist: Misty ALEXANDRA(R) Trnscrd Date/Time/By: 09/17/2017 (9598) : By: [email or web address] Orig Print D/T: S: 09/17/2017 (0598) PAGE 1 Signed Report - XR CHEST 1 [id number] 17:47:00 FAX: Ilan Holt MD [place]: St: [facility] FAX: Melinda Burns MD Name: ZOILAMOJGAN MOLINA [facility] : 1950 Age/S: 67/F [address] [facility] Unit #: [id number] Loc: [facility] [place] [address] Phys: Melinda Burns MD Acct: [id number] Dis Date: Status: UNK PHONE #: [phone] Exam Date: 09/17/20171735 FAX #: [phone] Reason: CENTRAL LINE PLACEMENT EXAMS: CPT CODE: [id number] XR CHEST 1 V 38221 CLINICAL HISTORY: Pneumonia; CENTRAL LINE PLACEMENT TECHNIQUE: [...] Technologist: Misty Pena RT(R) Trnscrd Date/Time/By: 09/17/2017 (138) : By: [email or web address] Orig Print D/T : S: 09/17/2017 (4343) PAGE 1 Sig julian Report - CT ABD PELVIS W/[id number] 17:30:00 Name: MOJGAN CUMMINGS [facility] : 1950 Age/S: 67 / F [address] [facility] Unit #: [id number] Loc: [place] [address] Phys: Shabbir Puentes MD Acct: [id number] Dis Date: Status: UNK PHONE #: [phone] Exam Date: 09/15/2017 1703 FAX #: [phone] Reason: ABDOM PAIN, DIARRHEA EXAMS: CPT CODE: [id number] CT ABD PELVIS W/CONT 70552 HISTORY: Abdominal pain and diarrhea. COMPARISON: CT [...] 1 Signed Report (CONTINUED) Name: MOJGAN CUMMINGS [facility] : 1950 Age/S: 67 / F [address] [facility] Unit #: [id number] Loc: [place] [address] Phys: Shabbir Puentes MD Acct: [id number] Dis Date: Status: UNK PHONE #: [phone] Exam Date: 09/15/2017 170 FAX #: [phone] Reason: ABDOM P AIN, DIARRHEA EXAMS: CPT CODE: [id number] CT ABD PELVIS W/CONT 01147 <Continued> Unremarkable subcutaneous tissues limited due to [...] CT CTDI: DLP: Trnscb Date/Time: 09/15/2017 (1730) t.SDR.TH4 Orig Print D/T: S: 09/15/2017 (8538) PAGE 2 Signed Report - CT ABD PELVIS W/[id number] 17:30:00 Name: MOJGAN CUMMINGS [facility] : 1950 Age/S: 67 / F [address] Unit #: [id number] Loc: [place] [address] Phys: Jayy Puentes MD Acct: [id number] Di s Date: Status: UNK PHONE #: [phone] Exam Date: 09/15/2017 1703 FAX #: Reason: ABDOM PAIN, DIARRHEA EXAMS: CPT CODE: [id number] CT ABD PELVIS W/CONT 15509 HISTORY: Abdominal pain a nd diarrhea. COMPARISON: [...] adenopathy. PAGE 1 Signed Report (CONTINUED) Name: ROEBRT CUMMINGS [facility] : 1950 Age/S: 67 / F [address] Unit #: [id number] Loc: [place] [address] Phys: Shabbir Puentes MD Acct: [id number] Dis Date: St atus: UNK PHONE #: [phone] Exam [place] e: 09/15/2017 1703 FAX #: [phone] Reason: ABDOM P AIN, DIARRHEA EXAMS: CPT CODE: [id number] CT ABD PELVIS W/CONT 97832 <Continued> Unremarkable subcutaneous tissues limited due to [...] CT CTDI: DLP: Trnscb Date/Time: 09/15/2017 (1730) t.SDR.TH4 Orig Print D/T: S: 09/15/2017 (5694) PAGE 2 Signed Report - XR CHEST 1 [id number] 14:10:00 FAX: Shabbir Puentes MD [place]: B St: UNK Name: MOJGAN SAUCEDO [facility] : [birth year] Age/S: 67/F [address] Unit #: [id number] Loc: [place] [address] Phys: Shabbir Puentes MD Acct: [id number] Dis Date: Status: UN PHONE #: [phone] Exam Date: 09/15/2017 1404 FAX #: [phone] Reason: Altered Mental Status EXAMS: CPT CODE: [id number] XR CHEST 1 V 87146 HISTORY: Confusion. COMPARISON: August 23, 2016. Patchy bilateral interstitial infilt rates. Dependent changes. No effusion or congestion. Cardiomegaly. IMPRESSION: Patchy bilateral interstitial infiltra melina. at 141 0 Reported and signed by: Clem Grissom M.D. CC: Shabbir Puentes MD Te chnologist: JEANNE HANKS RT(R); YAMILE TEMPLETON RT(R) Trnnmrd Date/ Time/By: 09/15/2017 (1410) : By: [email or web address] Orig Print D/T: S: 09/15/20 17 (7410) PAGE 1 Signed Report - XR CHEST 1 [id number] 14:10:00 FAX: Shabbir Puentes MD [place]: St: ADY Name: MOJGAN SAUCEDO [facility] : [birth year] Age/S: 67/F [address] Unit #: [id number] Loc: [place] [address] Phys: Shabbir Puentes MD Acct: [id number] Dis Date: Status: [facility] PHONE #: [phone] Exam Date: 09/15/2017 1404 FAX #: [phone] Reason: Altered Mental Status EXAMS: CPT CODE: [id number] XR CHEST 1 V 13163 HISTORY: Confusion. COMPARISON: August 23, 2016. Patchy bilateral interstitial infilt rates. Dependent changes. No effusion or congestion. Cardiomegaly. IMPRESSION: Patchy bilateral interstitial infiltra melina. at 141 0 Reported and signed by: Clem Grissom M.D. CC: Shabbir Puentes MD chnologist: JEANNE HANKS RT(R); YAMILE TEMPLETON RT(R) Trnnmrd Date/ Time/By: 09/15/2017 (141) : By: [email or web address] Orig Print D/T: S: 09/15/20 17 (8681) PAGE 1 Signed Report - [facility]UIDANCE [facility] [id number] 15:21:00 Name: MOJGAN CUMMINGS [facility] : 1950 Age/S: 66 / F [address] [facility] Unit #: [id number] Loc: [place] [address] Phys: William Hein MD Acct: [id number] Di s Date: Status: UNK PHONE #: Exam Date: 08/23/2016 1406 FAX #: Reason: EXAMS: CPT CODE: [id number] [facility]ANCE [facility] ACCESS 49874 Fluoro Time: 0 DAP (Gy m2): 0 Air Kerma (mGy): 0 REASON FOR EXAM: Thrombocytopenia Attending Crispin: Olvin Hein MD EXAM ORDER DATE: 08/23/2016 1:55 PM PROCEDURE: Ultrasound Guided Peripherally Inserted Central Catheter Placement CPT code: 72791, 85412 FINDINGS: After informed consent was obtained, the [...] MD; Oswald Ho DO Technologist: SARITHA PATINO Trnnmb Date/Time: 08/23/2016 (1520) tJEROME Orig Print D/T: S: 08/23/2016 (5223) PAGE 1 Signed Report - [facility] GUIDANCE [facility] [id number] 15:21:00 Name: MOJGAN CUMMINGS [facility] : 1950 Age/S: 66 / F [address] [facility] Unit #: [id number] Loc: [place] [address] Phys: Olvin Hein MD Acct: [id number] Dis Date: Status: UNK PHONE #: [phone] Exam Date: 08/23/2016 1406 FAX #: [phone] Reason: EXAMS: CPT CODE: [id number] [facility] G[facility]ANCE [facility] ACCESS 40042 Fluoro Time: 0 DAP (Gy m2): 0 Air Kerma (mGy): 0 REASON FOR EXAM: Thrombocytopenia Attending Crispin: Olvin Hein MD EXAM ORDER DATE: 08/23/2016 1:55 PM PROCEDURE: Ultrasound Guided Peripherally Inserted Central Catheter Placement CPT code: 73899, 16263 FINDINGS: After informed consent was obtained, the [...] MD; Oswald Ho DO Technologist: SARITHA PATINO [facility] Date/Time: 08/23/2016 (1521) Rodrigo Orig Print D/T: S: 08/23/2016 (4646) PAGE 1 Signed Report - XR CHEST 1 [id number] 14:41:00 FAX: Olvin Hein MD [phone] [place]: St: [facility] FAX: Y Oswald Ho DO [phone] Name: MOJGAN CUMMINGS [facility] : 1950 Age/S: 66/F [address] [facility] Unit #: [id number] Loc: [place] [address] Phys: Brayan Toro MD Acct: [id number] Dis Date: Status: UNK PHONE #: [phone] Exam Date: 08/23/2016 141 FAX #: [phone] Reason: POST LINE PLACEMENT EXAMS: CPT CODE: [id number] XR CHEST 1 V 57568 HISTORY: Post line placement. COMPARISON: August 11, [...] Technologist: ABHIJEET LOPEZ RT(R); Maricruz Vergara RT(R) [facility] Date/Time/By: 6 (9139) : By: [email or web address] Orig Print D/T: S: 08/23/2016 (4945) PAGE 1 Signed Report - XR CHEST 1 [id number] 14:41:00 FAX: Olvin Hein MD [phone] [place]: St: [facility] FAX: Oswald Howard DO [phone] Name: MOJGAN CUMMINGS [facility] : 1950 Age/S: 66/F [address] [facility] Unit #: [id number] Loc: [place] [address] Phys: Brayan Toro MD Acct: [id number] Dis Date: Status: UNK PHONE #: [phone] Exam Date: 08/23/2016 1415 FAX #: [phone] Reason: POST LINE PLACEMENT EXAMS: CPT CODE: [id number] XR CHEST 1 V 31349 HISTORY: Post line placement. COMPARISON: August 11, [...] RT(R); Maricruz Vergara RT(R) Trnscrd Date/Time/By: 6 (2754) : By: [email or web address] Orig Print D/T: S: 08/23/2016 (4234) PAGE 1 Signed Report - US GUIDANCE VASC [id number] 17:53:00 Name: MOJGAN CUMMINGS [facility] : 1950 Age/S: 66 / F [address] [facility] Unit #: [id number] Loc: [place] [address] Phys: Olvin Hein MD Acct: [id number] Dis Date: Status: UNK PHONE #: [phone] Exam Date: 08/11/2016 1615 FAX #: [phone] Reason: EXAMS: CPT CODE: [id number] [facility] GUIDANCE [facility] ACCESS 17014 Fluoro Time: 0 DAP (Gy m2): 0 Air Kerma (mGy): 0 REASON FOR EXAM: Acute renal failure EXAM ORDER DATE: 08/11/2016 4:00 PM Attending Crispin: Olvin Hein MD PROCEDURE: Ultrasound and fluoroscopic guided temporary hemodialysis catheter Placement CPT code: 61350, 30140, 70819 FINDINGS: After informed consent was obtained, the [...] hemodialysis catheter is ready for use. at 1753 Reported and signed by : Brayan Toro M.D. CC: Olvin Hein MD; Oswald Ho DO Technologist: Mariya ALEXANDRA(Ivan) Trnscb Date/Time: 08/12/2016 (175) Rodrigo Orig Print D/T: S: 08/12/2016 (7409) PAGE 1 Signed Report - [facility] GUIDANCE VASC [id number] 17:53:00 Name: MOJGAN CUMMINGS [facility] : 1950 Age/S: 66 / F [address] Unit #: [id number] Loc: [place] [address] Phys: Olvin Hein MD Acct: [id number] Dis Date: Status: UNK PHONE #: [phone] Exam Date: 08/11/2016 1615 FAX #: [phone] Reason: EXAMS: CPT CODE: [id number] [facility] GUIDANCE [facility] ACCESS 61555 Fluoro Time: 0 DAP (Gy m2): 0 Air Kerma (mGy): 0 REASON FOR EXAM: Acute renal failure EXAM ORDER DATE: 08/11/2016 4:00 PM Attending Crispin: Olvin Hein MD PROCEDURE: Ultrasound and fluoroscopic guided temporary hemodialysis catheter Placement CPT code: 92194, 00137, 45164 FINDINGS: After informed consent was obtained, the [...] hemodialysis catheter is ready for use. at 1753 Reported and signed by : Brayan Toro M.D. CC: Olvin Hein MD; Oswald Ho DO Technologist: Mariya Gupta RT(R) Trnscb Date/Time: 08/12/2016 (3997) HarryVTL Orig Print D/T: S: 08/12/2016 (8413) PAGE 1 Signed Report - XR CHEST 1 [id number] 16:43:00 FAX: Olvin Hein MD [phone] [place]: St: [facility] FAX: Y Oswald Ho DO [phone] Name: MOJGAN CUMMINGS [facility] : 1950 Age/S: 66/F [address] [facility] Unit #: [id number] Loc: [place] [address] Phys: Brayan Toro MD Acct: [id number] Dis Date: Status: UNK PHONE #: [phone] Exam Date: 08/11/2016 1623 FAX #: [phone] Reason: HD CATHETER EXAMS: CPT CODE: [id number] XR CHEST 1 V 54629 EXAM: Chest x-ray, one view; INFORMATION: Renal fa ilure; status post insertion of dialysis catheter; IMPRESS ION: 1. The tip of a right IJ hemodialysis catheter is positioned in th e SVC. 2. No evidence of a pneumothorax. 3. No other a cute changes compared with the study obtained earlier today; mild cardio megaly. at 4643 Reported and signed by: Rex aGtes M.D. CC: Olvin Dave MD; Oswald Ho DO Technologist: Lashell Monaco Trnscrd Date/Time/By: 08/11/2016 (1395) : By: [email or web address] Orig Print D/T: S: 08/11/2016 (1321) PAGE 1 Signed Report - XR CHEST 1 [id number] 16:43:00 FAX: Olvin Hein MD [phone] [place]: St: [facility] FAX: Y Oswald Ho DO [phone] Name: ZOILAMOJGAN LARESOOD [facility] : 1950 Age/S: 66/F [address] Unit #: [id number] Loc: [place] [address] Phys: Brayan Toro MD Acct: [id number] Dis Date: Status: [facility] PHONE #: [phone] Exam Date: 08/11/2016 1623 FAX #: [phone] Reason: HD CATHETER EXAMS: CPT CODE: [id number] XR CHEST 1 V 10444 EXAM: Chest x-ray, one view; INFORMATION: Renal [...] MD; Oswald Ho DO Technologist: Lashell Monaco Trnnmrd Date/Time/By: 08/11/2016 (406) : By: Omar Orig Print D/T: S: 08/11/2016 (9877) PAGE 1 Signed Report - CT HEAD/BRAIN W/O [id number] 14:40:00 Name: OMJGAN CUMMINGS JESSE [facility] : 1950 Age/S: 66 / F [address] Unit #: [id number] Loc: [place] [address] Phys: Olvin Hein MD Acct: [id number] Dis Date: Status: UNK PHONE #: [phone] Exam Date: 08/11/2016 9697 FAX #: [phone] Reason: altered mental status EXAMS: CPT CODE: [id number] CT HEAD/BRAIN W/O CONT 03936 HISTORY: Confusion. COMPARISON: None available. CT brain [...] (1440) t.SDR.TH4 Orig Print D/T: S: 08/11/2016 (9084) PAGE 1 Signed Report - CT HEAD/BRAIN W/O [id number] 14:40:00 Name: MOJGAN CUMMINGS [facility] : 1950 Age/S: 66 / F [address] Unit #: [id number] Loc: [place] [address] Phys: William Hein MD Acct: [id number] Di s Date: Status: UNK PHONE #: Exam Date: 08/11/2016 1427 FAX #: [phone] Reason: altered mental status EXAMS: CPT CODE: [id number] CT HEAD/BRAIN W/O CONT 94982 HISTORY: Confusion. COMPARISON: None available. CT brain [...] (1440) t.SDR.TH4 Orig Print D/T: S: 08/11/2016 (8523) PAGE 1 Signed Report - US RETRO [id number] 14:22:00 Name: MOJGAN CUMMINGS [facility] : 1950 Age/S: 66 / F [address] [facility] Unit #: [id number] Loc: [place], [place] [address] Phys: Olvin Hein MD Acct: [id number] Dis Date: Status: UNK PHONE #: [phone] Exam Date: 08/11/2016 1407 FAX #: [phone] Reason: renal failure EXAMS: CPT CODE: [id number] US RETRO LTD 72197 HISTORY: Renal failure. COMPARISON: CT abdomen and [...] Oswald Ho DO Technologist: RICK PRICE RT(R),RDMS Trnnmb Date/Time: 08/11/2016 (1421) t.SDR.TH4 Orig Print D/T: S: 08/11/2016 (7608) Probe: PAGE 1 Signed Report - US RETRO [id number] 14:22:00 Name: MOJGAN CUMMINGS [facility] : 1950 Age/S: 66 / F [address] [facility] Unit #: [id number] Loc: [place] [address] Phys: Olvin Hein MD Acct: [id number] Dis Date: Status: UNK PHONE #: [phone] Exam Date: 08/11/2016 1407 FAX #: [phone] Reason: renal failure EXAMS: CPT CODE: [id number] US RETRO LTD 55536 HISTORY: Renal failure. COMPARISON: CT abdomen and [...] Oswald Ho DO Technologist: RICK PRICE RT(R),RDMS [facility] Date/Time: 08/11/2016 (1421) t.SDR.TH4 Orig Print D/T: S: 08/11/2016 (740) Probe: PAGE 1 Signed Report - XR CHEST 1 [id number] 13:42:00 FAX: Olvin Hein MD [phone] [place]: St: [facility] FAX: Y Oswald Ho DO [phone] Name: MOJGAN CUMMINGS [facility] : 1950 Age/S: 66/F [address] Unit #: [id number] Loc: [place] [address] Phys: Olvin Hein MD Acct: [id number] Dis Date: Status: K PHONE #: [phone] Exam Date: 08/11/2016 1335 FAX #: [phone] Reason: rule out pneumonia EXAMS: CPT CODE: [id number] XR CHEST 1 V 90669 HISTORY: Pneumonia and abdominal pain with vomiting and diarrhea. COMPARISON: None available. Patchy right basal interstitial infiltrates. No effusion or congestion. Cardiomegaly. IMPRESSION: Patchy bibasal interstitial infiltrates. at 1342 Reported and signed by: Clem Grissom M.D. CC: Olvin Hein MD; Oswald Ho DO Technologist: Shruthi Tadeo RT(R) Trnscrd Date/Time/By: 08/11/2016 (7767) : By: [email or web address] Orig Print D/T: S: 08/11/2016 (3503) PAGE 1 Signed Report - XR CHEST 1 [id number] 13:42:00 FAX: Olvin Hein MD [phone] [place]: St: [facility] FAX: Oswald Howard DO [phone] Name: MOJGAN CUMMINGS [facility] : 1950 Age/S: 66/F [address] [facility] Unit #: [id number] Loc: [place] [address] Phys: Olvin Hein MD Acct: [id number] Dis Date: Status: UNK PHONE #: [phone] Exam Date: 08/11/2016 1335 FAX #: [phone] Reason: rule out pneumonia EXAMS: CPT CODE: [id number] XR CHEST 1 V 05297 HISTORY: Pneumonia and abdominal pain with vomiting and diarrhea. COMPARISON: None available. Patchy right basal int erstitial infiltrates. No effusion or congestion. Cardiomegaly. IMPRESSION: Patchy bibasal interstitial infiltrates. at 1342 Reported and signed by: Clem Grissom M.D. CC: Olvin Hein MD; Oswald Ho DO Technologist: Shruthi Tadeo RT(R) Trnscrd Date/Time/By: 08/11/2016 (1172) : By: [email or web address] Orig Print D/T: S: 08/11/2016 (5634) PAGE 1 Signed Report - US ABDOMEN [id number] 07:20:00 Name: MOJGAN CUMMINGS [facility] : 1950 Age/S: 66 / F [address] Unit #: [id number] Loc: [place] [address] Phys: Olvin Hein MD Acct: [id number] Dis Date: Status: UNK PHONE #: [phone] Exam Date: 08/10/2016516 FAX #: [phone] Reason: rule out cholecystitis EXAMS: CPT CODE: [id number] US ABDOMEN LTD 42015 HISTORY: Cholecystitis; abdominal pain TECHNIQUE: Static grayscale [...] Oswald Ho DO Technologist: Evette Gregory RDMS [facility] Date/Time: 08/10/2016 (719) GeneP1 Orig Print D/T: S: 08/10/2016 (0724) Probe: PAGE 1 Signed Report - US ABDOMEN [id number] 07:20:00 Name: MOJGAN CUMMINGS [facility] : 1950 Age/S: 66 / F [address] Unit #: [id number] Loc: [place] [address] Phys: Olvin Hein MD Acct: [id number] Dis Date: Status: UNK PHONE #: [phone] Exam Date: 08/10/2016516 FAX #: [phone] Reason: rule out cholecystitis EXAMS: CPT CODE: [id number] ABDOMEN [facility] [address]254 HISTORY: Cholecystitis; abdominal pain TECHNIQUE: Static grayscale [...] Oswald Ho DO Technologist: Evette Gregory RDMS Trnnmb Date/Time: 08/10/2016 (719) GeneP1 Orig Print D/T: S: 08/10/2016 (9576) Probe: PAGE 1 Signed Report - CT ABD PELVIS W/O [id number] 17:31:00 Name: MOJGAN CUMMINGS [facility] : 1950 Age/S: 66 / F [address] Unit #: [id number] Loc: [place] [address] Phys: Carlos Griffin MD Acct: [id number] Di s Date: Status: UNK PHONE #: [phone] Exam Date: 08/09/2016 1722 FAX #: Reason: abd pain diarrhea renal failure EXAMS: CPT CODE: [id number] CT ABD PELVIS W/O CONT 72176 EXAM: CT of the abdomen a nd [...] CTDI: DLP: Trnscb D ate/Time: 08/09/2016 (1731) tKEVIN Orig Print D/T: S: 08/09/2016 (9159) PAGE 1 Signed Report - CT ABD PELVIS W/O [id number] 17:31:00 Name: MOJGAN CUMMINGS [facility] : 1950 Age/S: 66 / F [address] Unit #: [id number] Loc: [place] [address] Phys: Spencer Griffin MD Acct: [id number] Dis Date: Status: UNK PHONE #: [phone] Exam Date: 08/09/2016 1722 FAX #: [phone] Reason: abd pain diarrhea renal failure EXAMS: CPT CODE: [id number] CT ABD PELVIS W/O CONT 27970 EXAM: CT of the abdomen and pelvis [...] CTDI: DLP: Trnscb D ate/Time: 08/09/2016 (1731) tKEVIN Orig Print D/T: S: 08/09/2016 (5587) PAGE 1 Signed Report [id number] 17:55:16019Qkkrzjrb HermannELECTROLYTES 2016-06-14 17:55:005.1[facility] SehkraoBCVSWLHGCICB4726-52-74 17:55:0011.1 [facility] FwnqkvlVUNWRYBHJYVX0442-34-19 17:55:009.2[facility] HermannELECTROLYTES 2016-06-14 17:55:0026[facility] VszurvuNUBWFZDGFCZP2565-36-73 17:55:0076[facility] GtrvzqcHFXYTIOTQAEM8001-61-93 17:55:000.80[facility] TojciljGRCNOFHHQIIA9657-58-51 17:55:0011[facility] UkrwewvRAXAXUNZPKDF6791-74-57 17:55:44410Swjtgzqn Jet RBJPQLWLNBHZ1373-79-76 17:55:79245Hxyzpefy Scroggins- XR KNEE 1 OR 2 V BI 2014-01-08 16:43:00 FAX: Oswald Howard DO [phone] [place]: O St: UNK Name: MOJGAN SAUCEDO [facility] : [birth year] Age/S: 63/F [address] [facility] Unit #: [id number] Loc: [place] [address] Phys: Oswald Ho DO Acct: [id number] Dis Date: Status: UNK PHONE #: [phone] Exam Date: 01/08/2014 1140 FAX #: [phone] Reason: 719.46 KNEE PAIN EXAMS: CPT CODE: [id number] XR KNEE 1 OR 2 [place] [address] TECHNIQUE: Bilateral knees 2 views each side. FINDINGS: Severe tricompartmental osteoarthritis with narrowing greatest in the medial and patellofemoral compartments bilateral ly. Bilateral mild lateral subluxation of the tibia and mild tibia vara versus genu varus. No acute traumatic or destructive bone lesion or si gnificant joint effusion. IMPRESSION: Severe osteoarthritis in b oth knees. malcolm t 3790 Reported and signed by: Conrad Gan M.D. CC: Oswald Ho DO Technologist: RT TESSA(Ivan) Trnscrd Date/Time/By: 01/08/2014 (8052) : By: [email or web address] Orig Print D/T: S: (495) PAGE 1 Signed Repo rt - XR KNEE 1 OR 2 V [id number] 16:43:00 FAX: Oswald Howard DO [phone] [place]: O St: K Name: MOJGAN SAUCEDO [facility] : [birth year] Age/S: 63/F [address] [facility] Unit #: [id number] Loc: [place] [address] Phys: Oswald Ho DO Acct: [id number] Dis Date: Status: UNK PHONE #: [phone] Exam Date: 01/08/2014 1140 FAX #: [phone] Reason: 719.46 KNEE PAIN EXAMS: CPT CODE: [id number] XR KNEE 1 OR 2 [place] [address] TECHNIQUE: Bilateral knees 2 views each side. FINDINGS: Severe tricompartmental osteoarthritis with narrowing greatest in the medial and patellofemoral compartments bilateral ly. Bilateral mild lateral subluxation of the tibia and mild tibia vara versus genu varus. No acute traumatic or destructive bone lesion or si gnificant joint effusion. IMPRESSION: Severe osteoarthritis in b oth knees. a t 1642 Reported and signed by: Conrad Gan M.D. CC: Oswald Ho DO Technologist: RT TESSA(Ivan) Trnscrd Date/Time/By: 01/08/2014 (1642) : By: [email or web address] Orig Print D/T: S: (1645) PAGE 1 Signed Repo rt CHEST SINGLE (PORTABLE) [place] [address] Patient Name: MOJGAN CUMMINGS MR #: [id number] : 1950 Age/Sex: 68/F Req #: [id number] Adm Physician: Ordered by: NATHANIEL SANTACRUZ DO Report #: [id number] Location: ER Room/Bed: Procedure: [id number] DX/CHEST SINGLE (PORTABLE) Exam Date: 02/10/18 Exam Time: 1829 REPORT STATUS: Signed EXAMINATION: CHEST SINGLE (PORTABLE) 02/10/2018 6:20 PM COMPAR ROWAN: 01/14/2018 INDICATION: Shortness of breath DISCUSSION: LI LYNDON: Right upper extremity PICC line. The [...] BAMBI on 02/10/181935 COPY TO: NATHANIEL SANTACRUZ DO MODIFIED BA. [place] [address] Patient Name: MOJGAN CUMMINGS MR #: [id number] : 1950 Age/Sex: 67/F Req #: [id number] Adm Physician: ILAN STEIN MD Ordered by: Pilar Simeon DOCTOR CHIROPRACTIC Report #: [id number] Location: MED/SURG2 Room/Bed: 204-1 Procedure: [id number] DX/M ODIFIED BA. SWALLOW Exam Date: 01/17/18 [...] DEN on 01/18/18800 COPY TO: PILAR SIMEON DOCTOR CHIROPRACTIC CHEST [facility] (PORTABLE) [place] [address] Patient Name: MOJGAN CUMMINGS MR #: [id number] : 1950 Age/Sex: 67/F Req #: [id number] Adm Physician: ILAN MAURICIO MD Ordered by: BALBIR BARDALES MD Report #: [id number] Location: I CU Room/Bed: ICU 191-1 Procedure: [id number] DX/CHEST SINGLE (PORTABLE) Exam Date: 01/14/18 Exam [...] Signed by: Dr. Nathaniel Tripp M.D. on 7:33 AM Dictated By: NATHANIEL TRIPP MD 2 Transcribed By: BAMBI on 01/14/18732 COPY TO: BALBIR BARDALES MD [facility]-[address] [place] [address] Patient Name: MOJGAN CUMMINGS MR #: [id number] : 1950 Age/Sex: 67/F Req #: [id number] Adm Physician: ILAN STEIN MD Ordered by: KIAN ROGERS PA-C Report #: [id number] Location: ICU Room/Bed: ICU 191 Procedure: [id number] DX/AB SANTI (KALYANI) Exam Date: 01/13/18 Exam Time: 192 0 [...] KIAN ROGERS PA-C CHEST XRAY LINE PLACEMENT [place] [address] Patient Name: MOJGAN CUMMINGS MR #: [id number] : 1950 Age/Sex: 67/F Req #: [id number] Adm Physician: ILAN STEIN MD Ordered by: KIAN ROGERS PA-C Report #: [id number] Location: ICU Room/Bed: ICU 191 Procedure: [id number] DX/CH EST XRAY LINE PLACEMENT Exam Date: [...] on 01/13/2018 8:02 PM Dictated By: ERIC LANTIGUA DO 01 Transcribed By: BAMBI on 01/13/182001 COPY TO: KIAN LEE PA-C CHEST SINGLE (PORTABLE) [place] [address] Patient Name: MOJGAN CUMMINGS MR #: [id number] : 1950 Age/Sex: 67/F Req #: [id number] Adm Physician: ILAN STEIN MD Ordered by: BASIL POSADAS, AKILAH POSADAS Report #: [id number] Location: ICU Room/Bed: [facility] Procedure: [id number] DX /CHEST SINGLE (PORTABLE) Exam Date: 01/13/18 [...] COPY TO: Jeison GRACIA CHEST SINGLE (PORTABLE) [place] [address] Patient Name: MOJGAN CUMMINGS MR #: [id number] : 1950 Age/Sex: 67/F Req #: [id number] Adm Physician: ILAN STEIN MD Ordered by: MAURO AUGUSTIN MD Report #: [id number] Location: ICU Room/Bed: [facility] Procedure: [id number] DX/CH EST SINGLE (PORTABLE) Exam Date: 01/12/18 [...] TIAN MD 3 Transcribed By: BAMBI on 01/12/18703 OFFAL SEPARATOR Y TO: MAURO AUGUSTIN MD CHEST SINGLE (PORTABLE) [place] [address] Patient Name: MOJGAN CUMMINGS MR #: [id number] : 1950 Age/Sex: 67/F Req #: [id number] Adm Physician: ILAN STEIN MD Ordered by: MAURO AUGUSTIN MD Report #: [id number] Location: ICU Room/Bed: ICU [facility] Procedure: [id number] DX/CH EST SINGLE (PORTABLE) Exam Date: 01/11/18 [...] MD 07 COPY TO: MAURO AUGUSTIN MD ABDOMEN-[facility] ([facility]) [place] [address] Patient Name: MOJGAN CUMMINGS MR #: [id number] : 1950 Age/Sex: 67/F Req #: [id number] Adm Physician: ILAN STEIN MD Ordered by: ILAN STEIN MD Report #: [id number] Location: ICU Room/Bed: ICU 191 Procedure: [id number] DX/CARIDAD WEN (KUB) Exam Date: 01/11/18 Exam Time: 1300 [...] 135 9 Transcribed By: DEN on 01/11/18 1359 COPY TO: ILAN STEIN MD CHEST SINGLE (PORTABLE) [place] [address] Patient Name: MOJGAN CUMMINGS MR #: [id number] : 1950 Age/Sex: 67/F Req #: [id number] Adm Physician: ILAN STEIN MD Ordered by: ILAN STEIN MD Report #: [id number] Location: ICU Room/Bed: ICU 191 Procedure: [id number] DX/CHES T SINGLE (PORTABLE) Exam Date: 01/11/18 [...] at 13:55 Dictated By: NATHANIEL TRIPP MD 1355 Transcribed By: DEN on 01/11/18 1355 COPY TO: ILAN STEIN MD CHEST SINGLE (PORTABLE) [place] [address] Patient Name: MOJGAN CUMMINGS MR #: [id number] : 1950 Age/Sex: 67/F Req #: [id number] Adm Physician: ILAN STEIN MD Ordered by: ILAN STEIN MD Report #: [id number] Location: ICU Room/Bed: ICU [facility] Procedure: [id number] DX/CHES T SINGLE (PORTABLE) Exam Date: 01/11/18 Exam Time: 1 030 REPORT STATUS: Signed PROCEDURE: CHEST SINGLE (PORTABLE) TECHNI QUE: Portable AP chest INDICATION: Intubation COMPARISON: Patients [facility], DX, CHEST SINGLE (PORTABLE), 01/11/2018, 6:10. Patients [facility], DX, CHEST SINGLE (PORTABLE), 01/06/2018, 17:50. FINDINGS: [...] TO: ILAN STEIN MD CHEST SINGLE (PORTABLE) [place] [address] Patient Name: MOJGAN CUMMINGS MR #: [id number] : 1950 Age/Sex: 67/F Req #: [id number] Adm Physician: ILAN STEIN MD Ordered by: Pilar Simeon DOCTOR CHIROPRACTIC Report #: [id number] Location: MED/SURG3 Room/Bed: 2961 Procedure: [id number] DX/C HEST SINGLE (PORTABLE) Exam Date: 01/11/18 [...] 7:01 AM Dictated By: SHANA TIAN MD [facility] Signed By: SHANA TIAN MD on 01/11/18 07 Transcribed By: YASHIRA NUGENT on 01/11/18 07 COPY TO: PILAR SIMEON DOCTOR CHIROPRACTIC CT CHEST W [place] [address] Patient Name: MOJGAN CUMMINGS MR #: [id number] : 05/1950 Age/Sex: 67/F Req #: [id number] Adm Physician: ILAN MAURICIO MD Ordered by: JENN MILLER MD Report #: [id number] Locat ion: [facility] Room/Bed: [place] [address] Procedure: [id number] C T/CT CHEST W Exam Date: 01/06/18 [...] TO: ELIJAH MILLER MD CHEST SINGLE (PORTABLE) [place] [address] Patient Name: MOJGAN CUMMINGS MR #: [id number] : 1950 Age/Sex: 67/F Req #: [id number] Adm Physician: Ordered by: JENN MILLER MD Report #: [id number] Location: ER Room/Bed: Procedure: [id number] DX/CHEST SINGLE (PORTABLE) E xam Date: 01/06/18 [...] joint. IMPRESSION: 1. No acute cardiopulmonary abnormalitie brit Turner M.D. Dictated by: Og Turner M.D. o lamonte 01/06/2018 at 18:41 Electronically approved by: Og Turner M.D. on 01/06/2018 at 18:41 Dictated By: OG TURNER MD Electro nically Signed By: OG TURNER MD on 01/06/181840 Transcribed By: DEN on 01/06/181840 COPY TO: JENN MILLER MD
== END 2020-05-16 23:43 | disposition home or self-care (01) ==
LOC: ER 19:57
DX: F41.9 Anxiety disorder, unspecified (principal); R94.31 Abnormal electrocardiogram [ECG] [EKG]; R06.02 Shortness of breath; I10 Essential (primary) hypertension; E11.9 Type 2 diabetes mellitus without complications; E03.9 Hypothyroidism, unspecified; K21.9 Gastro-esophageal reflux disease without esophagitis
CPT/HCPCS: 71045; 93005; 99283; J2060

== ENCOUNTER 2020-05-26 23:01 | Emergency (ER) | payer MEDICARE ==
[~2020-05-26] VITALS: Ht 172.7 cm; Wt 62.1 kg
[2020-05-26] MEDS ORDERED: LORAZEPAM INJ 2 MG/ML VIAL INJ ONE (23:15)
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
--- OUTSIDE RECORDS SUMMARY | 2020-05-26 23:43 | XMS REPORT | Continuity of Care Document ---
Author Author Irene Chaudhary [employer], MOJGAN Rader [facility] [employer] Information Exchange Address Unknown Phone Unavailable Care Team Providers Care Registered Respiratory Technician Name Role Phone [facility] Information Exchange Unavailable Un available Problems Problem Status Onset Date Classification Date Reported Comments Source TRACH Active 06/27/2019 [facility] TRACHEOSTOMY STATUS Active 09/08/2018 [facility] Other specified diseases of upper respiratory tract 08/17/2018 03/01/2019 [facility] UNK Active 0 05/19/2016 [facility] Atherosclerotic heart disease of [place] coronary artery without angina pectoris 03/01/2019 [facility] Chaudhary Atherosclerosis of aorta 03/01/2019 [facility] Diaphragmatic hernia without obstruction or gangrene 03/01/2019 [facility] Arthritis (disorder) Active Problem 07/03/2019 [facility] Benign hypertension (disorder) Active Problem [facility] Diabetes mellitus (disorder) A ctive Problem [facility] Fibromyositis (disorder) Active Problem 07/03/2019 [facility] Gastroesophageal reflux disease (disorder) Active Problem 07/03/2019 [facility] Generalized obesity (disorder) Active Problem [facility] Heart murmur (finding) Active Problem 07/03/2019 [facility] Hypothyroidism (disorder) Acti ve Problem [facility] Irritable colon (disorder) Act [place] Problem [facility] UNSPECIFIED TRACHEOSTOMY COMPLICATION Active [facility] Medications Medication Details Route Status Patient Instructions Ordering Provider Order Date Source levothyroxine 175 mcg (0.175 mg) oral tablet 175 microgram = 1 tab, PO, Daily, # 15 tab, 0 Refill(s) Active 06/29/2019 [facility] Metoclopramide 5 MG Oral Tablet 5 mg = 1 tab, PO, Daily, # 30 tab, 0 Refill(s) No Longe r Active 06/29/2019 [facility] Clonidine Hydrochloride 0.1 MG Oral Tablet 160, 0 Refill(s) Active 06/29/2019 [facility] cefTRIAXone 1 g intravenous injection 1 gm, IV, 1G/100ML NS //INFUSE OVER 30 MIN IN Q12H, 0 Refill(s) No Longer Active 06/29/2019 [facility] sennosides, PRISON Notes: (Same a s: Senokot) No Longer Active 06/29/2019 [facility] POLYETHYLENE GLYCOL 3350 Notes : Dissolve in 8 oz of water or juice. (Same as: Miralax) No Longer Active 06/28/2019 [facility] nter Allopurinol Notes: (Same as: Z yloprim) No Longer Active 06/28/2019 [facility] Furosemide 40 MG Oral Tablet [Lasix] Notes: (Same as: Lasix) May cause GI upset. Give with food or milk. No Longer Active 06/28/2019 [facility] Thyroxine Notes: Take 1 hour b efore or 2 hours after meal; Enteral feeds may interefere with the absorption of this medication. (Same as: Levothroid) No Longe r Active 06/28/2019 [facility] Sodium Chloride 0.9% IV 1,000 mL 1,000 mL, Rate: 75 ml/hr, Infuse over: 13.3 hr, Route: IV, Dosing Weight 81.818 kg, Total Volume: 1,000, Start date: 06/27/19 23:57:00 CDT, Duration: 30 day, Stop date: 07/27/19 23:56:00 ORGAN PIPE VOICER, 2, m2, 0 No Longer Active 06/28/2019 [facility] Oxycodone Hydrochloride 5 MG Oral Tablet Notes: (Same as: Roxicodone) No Longer Active 06/28/2019 [facility] Naloxone Notes: Same as Narcan No Longer Active 06/28/2019 [facility] Melatonin Notes: (Same as: [place] atonin) No Longer Active 06/28/2019 [facility] Amitriptyline Notes: (Same as: Elavil) No Longer Active 06/28/2019 [facility] ondansetron (ANES) Route: IV, Drug form: INJ, ONCE, Stop date: 06/27/19 19:26:00 CDT Inactive 06/28/2019 [facility] glycopyrrolate (ANES) Route: I V, Drug form: INJ, ONCE, Stop date: 06/27/19 19:26:00 CDT Inactive 06/28/2019 [facility]ter neostigmine (ANES) Route: IV, Drug form: INJ, ONCE, Stop date: 06/27/19 19:26:00 CDT Inactive 06/28/2019 [facility]ter dexamethasone (ANES) Route: IV , Drug form: INJ, ONCE, Stop date: 06/27/19 18:53:00 CDT Inactive 06/27/2019 [facility] nter fentaNYL (ANES) Route: IV, David g form: INJ, ONCE, Stop date: 06/27/19 18:38:00 CDT Inactive 06/27/2019 [facility]ter lidocaine (ANES) Route: IV, Dr ug form: INJ, ONCE, Stop date: 06/27/19 18:33:00 CDT Inactive 06/27/2019 [facility]ter propofol (ANES) Route: IV, David g form: INJ, ONCE, Stop date: 06/27/19 18:33:00 CDT Inactive 06/27/2019 [facility]ter rocuronium (ANES) Route: IV, D rug form: INJ, ONCE, Stop date: 06/27/19 18:23:00 CDT Inactive 06/27/2019 [facility]ter phenylephrine (ANES) Route: IV , Drug form: INJ, ONCE, Stop date: 06/27/19 18:23:00 CDT Inactive 06/27/2019 [facility] Lactated Ringers Injection IV (ANES) 1000 mL Route: IV, Total Volume: 1,000, Start date: 06/27/19 17:32:00 CDT, Stop date: 06/27/19 18:32:00 CDT Inactive 06/27/2019 [facility] Dextrose 50% Syringe 12.5 gm, 25 mL, Route: IVP, Drug Form: INJ, Dosing Weight 81.818, kg, PRN, PRN Blood Glucose Results, Start date: 06/27/19 17:30:00 CDT, Duration: 30 day, Stop date: 07/27/19 16:29:00 ORGAN PIPE VOICER, 0 No Longer Active 06/27/2019 [facility] Glucagon 1 mg, Route: IM, Drug form: PDR/INJ, PRN, Dosing Weight 81.818, kg, PRN Blood Glucose Results, Start date: 06/27/19 17:30:00 CDT, Duration: 30 day, Stop date: 07/27/19 16:29:00 ORGAN PIPE VOICER, 0 No Longer Active 06/27/2019 [facility] Insulin regular Notes: (Same a s: Humulin R) Roll in palms of hands gently; Do not shake vigorously. WASTE: F/P - Black; E - Municipal Trash Bin Stable for 31 days at room temperature Expires in days from Date No Longer Active 06/27/2019 [facility] nt Dextrose 50% Syringe 12.5 gm, 25 mL, Route: IVP, Drug Form: INJ, Dosing Weight 81.818, kg, PRN, PRN Blood Glucose Results, Start date: 06/27/19 17:06:00 CDT, Duration: 30 day, Stop date: 07/27/19 16:05:00 ORGAN PIPE VOICER, 0 No Longer Active 06/27/2019 [facility] Glucagon 1 mg, Route: IM, Drug form: PDR/INJ, PRN, Dosing Weight 81.818, kg, PRN Blood Glucose Results, Start date: 06/27/19 17:06:00 CDT, Duration: 30 day, Stop date: 07/27/19 16:05:00 ORGAN PIPE VOICER, 0 No Longer Active 06/27/2019 [facility] Bisacodyl Notes: (Same As: Dul colax, Bisco-Lax) No Longer Active 06/27/2019 [facility] Ondansetron Notes: (Same as: Jacqui walter) MEDICATION WASTE Product Size: 4 mg Product Wasted: ___ mg No Longer Active 06/27/2019 [facility] Melatonin Notes: (Same as: [place] atonin) No Longer Active 06/27/2019 [facility] Acetaminophen Notes: Do not ex ceed 4 gm/day. (Same as: Tylenol) No Longer Active 06/27/2019 [facility] Saline Flush 0.9% 10 mL, Route : IVP, Drug Form: INJ, Dosing Weight 81.818, kg, PRN, PRN Line Flush, Start date: 06/27/19 15:12:00 CDT, Duration: 30 day, Stop date: 07/27/19 14:11:00 ORGAN PIPE VOICER, 0 No Longer Active 06/27/2019 [facility] potassium chloride Notes: (Prasanth e as: Potassium Chloride) Inactive 11/07/2018 [facility] Thyroxine Notes: Take 1 hour b efore or 2 hours after meal; Enteral feeds may interefere with the absorption of this medication. (Same as: Levothroid) Inactive 11/07/2018 [facility] Furosemide 40 MG Oral Tablet [Lasix] Notes: (Same as: Lasix) May cause GI upset. Give with food or milk. Inactive 11/07/2018 [facility] Allopurinol Notes: (Same as: Jacqui yloprim) Inactive 11/07/2018 [facility] Metformin hydrochloride 500 MG Oral Tablet Notes: (Same as: Glucophage) Take with meal Inactive 11/07/2018 [facility] Acetaminophen Notes: Max aceta minophen = 4000mg/day (4 gm/day). (Same as: Tylenol) Inactive 11/07/2018 [facility] Dicyclomine Notes: (Same as:Be ntyl) No Longer Active 11/07/2018 [facility] Amitriptyline Notes: (Same as: Elavil) No Longer Active 11/07/2018 [facility] tramadol hydrochloride 50 MG Oral Tablet Notes: Not to exceed 400mg/day. (Same As: Ultram) No Longer Active 11/06/2018 [facility] Docusate Notes: (Same as: Cola ce) No Longer Active 11/06/2018 [facility] Ondansetron Notes: (Same as: Jacqui walter) MEDICATION WASTE Product Size: 4 mg Product Wasted: ___ mg No Longer Active 11/06/2018 [facility] Promethazine Notes: Do not giv e IV push. (Same as: Phenergan) Inactive 11/06/2018 [facility] Ondansetron Notes: (Same as: Jacqui walter) MEDICATION WASTE Product Size: 4 mg Product Wasted: ___ mg Inactive 11/06/2018 [facility] Naloxone Notes: Same as Narcan Inactive 11/06/2018 [facility] Oxycodone Notes: (Same as: [place] icodone) Inactive 11/06/2018 [facility] Acetaminophen Notes: Max aceta minophen 4000 mg/day (4 gm/day). (Same as: Tylenol Extra Strength) Inactive 11/06/2018 [facility] nt Labetalol 10 mg, 2 mL, Route: IVP, Drug form: INJ, Q5Min, Dosing Weight 86.364, kg, PRN Elevated BP, Start date: 11/06/18 16:16:00 ORGAN PIPE VOICER, Duration: 5 doses or times, Stop date: 11/07/18 0:00:00 ORGAN PIPE VOICER Inactive 11/06/2018 [facility] esmolol Notes: (Same as: Brevi bloc) Inactive 11/06/2018 [facility] Flumazenil Notes: (Same as: Ro mazicon) Inactive 11/06/2018 [facility] glycopyrrolate (ANES) Route: I V, Drug form: INJ, ONCE, Stop date: 11/06/18 16:15:00 ORGAN PIPE VOICER Inactive 11/06/2018 [facility] ondansetron (ANES) Route: IV, Drug form: INJ, ONCE, Stop date: 11/06/18 16:15:00 ORGAN PIPE VOICER Inactive 11/06/2018 [facility] neostigmine (ANES) Route: IV, Drug form: INJ, ONCE, Stop date: 11/06/18 16:15:00 ORGAN PIPE VOICER Inactive 11/06/2018 [facility] dexamethasone (ANES) Route: IV , Drug form: INJ, ONCE, Stop date: 11/06/18 16:11:00 ORGAN PIPE VOICER Inactive 11/06/2018 [facility] nter fentaNYL (ANES) Route: IV, David g form: INJ, ONCE, Stop date: 11/06/18 16:11:00 ORGAN PIPE VOICER Inactive 11/06/2018 [facility] nt propofol (ANES) Route: IV, David g form: INJ, ONCE, Stop date: 11/06/18 16:11:00 ORGAN PIPE VOICER Inactive 11/06/2018 [facility] rocuronium (ANES) Route: IV, D rug form: INJ, ONCE, Stop date: 11/06/18 15:56:00 ORGAN PIPE VOICER Inactive 11/06/2018 [facility] Lactated Ringers Injection IV (ANES) 1000 mL Route: IV, Total Volume: 1,000, Start date: 11/06/18 15:16:00 ORGAN PIPE VOICER, Stop date: 11/06/18 16:16:00 ORGAN PIPE VOICER Inactive 11/06/2018 [facility] sugammadex Notes: (Same as: Reese porras) No Longer Active 11/06/2018 [facility] 8 HR Acetaminophen 650 MG Extended Relea se Tablet [Tylenol] 1,300 mg = 2 tab, PO, Q8H, 0 Refill(s) On Hold 11/02/2018 [facility] potassium chloride 20 mEq oral tablet, extended releas e 20 mEq = 1 tab, PEG, Daily, # 30 tab, 3 Refill(s) On Hold 11/02/2018 [facility] nt Furosemide 40 MG Oral Tablet [Lasix] 40 mg = 1 tab, PEG, Daily, # 30 tab, 0 Refill(s) On Hold 11/02/2018 [facility] nt levothyroxine 150 mcg (0.15 mg) oral tablet 150 microgram = 1 tab, PEG, Daily, # 30 tab, 0 Refill(s) On Hold 11/02/2018 [facility] allopurinol 100 mg oral tablet 100 mg = 1 tab, PEG, Daily, # 60 tab, 0 Refill(s) O n Hold 11/02/2018 [facility] Albuterol 0.833 MG/ML / Ipratropium Brom [...] Stop date: 07/15/16 13:19:00 CDT Inactive 06/15/2016 [facility] Sodium Chloride 0.154 MEQ/ML Injectable Solution 500 mL, Rate: 25 ml/hr, Infuse over: 20 hr, Route: IV, Dosing Weight 152.273 kg, Total Volume: 500, Start date: 06/15/16 13:20:00 CDT, Duration: 30 day, Stop date: 07/15/16 13:19:00 CDT Inactive 06/15/2016 [facility] dicyclomine 20 mg oral tablet 20 mg = 1 tab, PO, QID, # 28 tab, 0 Refill(s) Active 06/14/2016 [facility] omeprazole 40 mg oral delayed release capsule 40 mg = 1 cap, PO, Daily, # 30 cap, 0 Refill(s) Active 06/14/2016 [facility] losartan 100 mg oral tablet 10 0 mg = 1 tab, PO, Daily, # 30 tab, 0 Refill(s) Active 06/14/2016 [facility] sitagliptin 100 MG Oral Tablet [Januvia] 100 mg = 1 tab, PO, Daily, # 30 tab, 0 Refill(s) Active 06/14/2016 [facility] amitriptyline 25 mg oral tablet 25 mg = 1 tab, PO, Bedtime, # 30 tab, 1 Refill(s) Active 06/14/2016 [facility] Metformin hydrochloride 500 MG Oral Tablet 1,000 mg = 2 tab, PO, BID-Meals, # 30 tab, 0 Refill(s) Active 06/14/2016 [facility] Allergies, Adverse Reactions, Alerts Substance Category Reaction Severity Reaction type Status Date Reported Comments Source penicillins Assertion Drug allergy Active [facility] heparin Assertion Drug allergy Active [facility] Other Environmental Allergy<sup>1</sup> Assertion Drug aller gy Active [facility] Immunizations No Data Provided for This Section Results Order Name Results Value Reference Range Date Interpretation Comments Source ELECTROLYTES AGAP 10.7 10.0 - 20.0 07/01/2019 [facility] ELECTROLYTES Glucose Lvl 102 70 - 99 07/01/2019 [facility] ELECTROLYTES BUN 26 7 - 22 07/01/2019 [facility] ELECTROLYTES Creatinine Lvl 0.8 0 0.50 - 1.40 07/01/2019 [facility] ELECTROLYTES Sodium Lvl 141 135 - 145 07/01/2019 [facility] ELECTROLYTES Potassium Lvl 3.7 3.5 - 5.1 07/01/2019 [facility] ELECTROLYTES Chloride Lvl 105 95 - 109 07/01/2019 [facility] ELECTROLYTES CO2 29 24 - 32 07/01/2019 [facility] ELECTROLYTES Calcium Lvl 9.5 8.5 - 10.5 07/01/2019 [facility] ELECTROLYTES eGFR 74 07/01/2019 Result Comment: [...] should be multiplied by the estimated BMI. [facility] HEMATOLOGY Segs 65.2 45.0 - 75.0 07/01/2019 [facility] HEMATOLOGY Lymphocytes 23.3 20.0 - 40.0 07/01/2019 [facility] HEMATOLOGY Monocytes 7.5 2.0 - 12.0 07/01/2019 [facility] HEMATOLOGY Eosinophils 3.4 0.0 - 4.0 07/01/2019 [facility] HEMATOLOGY Basophils 0.6 0.0 - 1.0 07/01/2019 [facility] HEMATOLOGY Neutrophils # 4.7 1.5 - 8.1 07/01/2019 [facility] HEMATOLOGY Lymphocytes # 1.7 1.0 - 5.5 07/01/2019 [facility] HEMATOLOGY Monocytes # 0.5 0.0 - 0.8 07/01/2019 [facility] HEMATOLOGY Eosinophils # 0.2 0.0 - 0.5 07/01/2019 [facility] HEMATOLOGY WBC 7.3 3.7 - 10.4 07/01/2019 [facility] HEMATOLOGY RBC 3.85 4.20 - 5.40 07/01/2019 [facility] HEMATOLOGY Hgb 11.8 12.0 - 16.0 07/01/2019 [facility] HEMATOLOGY Hct 35.6 36.0 - 48.0 07/01/2019 [facility] HEMATOLOGY MCV 92.6 80.0 - 98.0 07/01/2019 [facility] HEMATOLOGY MCH 30.7 27.0 - 31.0 07/01/2019 [facility] HEMATOLOGY MCHC 33.1 32.0 - 36.0 07/01/2019 [facility] HEMATOLOGY RDW 12.2 11.5 - 14.5 07/01/2019 [facility] HEMATOLOGY Platelet 21 133 - 450 07/01/2019 Result Comment: Critical Result(s) farley d to Kristie Lindsay at 07/01/2019 02:23 by Le. Julien back OK. [facility] HEMATOLOGY MPV 12.4 7.4 - 10.4 07/01/2019 [facility] HEMATOLOGY Segs 55.9 45.0 - 75.0 06/30/2019 [facility] HEMATOLOGY Lymphocytes 32.5 20.0 - 40.0 06/30/2019 [facility] HEMATOLOGY Monocytes 7.0 2.0 - 12.0 06/30/2019 [facility] HEMATOLOGY Eosinophils 4.2 0.0 - 4.0 06/30/2019 [facility] HEMATOLOGY Basophils 0.4 0.0 - 1.0 06/30/2019 [facility] HEMATOLOGY Neutrophils # 2.7 1.5 - 8.1 06/30/2019 [facility] HEMATOLOGY Lymphocytes # 1.6 1.0 - 5.5 06/30/2019 [facility] HEMATOLOGY Monocytes # 0.3 0.0 - 0.8 06/30/2019 [facility] HEMATOLOGY Eosinophils # 0.2 0.0 - 0.5 06/30/2019 [facility] HEMATOLOGY WBC 4.8 3.7 - 10.4 06/30/2019 [facility] HEMATOLOGY RBC 3.49 4.20 - 5.40 06/30/2019 [facility] HEMATOLOGY Hgb 10.8 12.0 - 16.0 06/30/2019 [facility] HEMATOLOGY Hct 32.5 36.0 - 48.0 06/30/2019 [facility] HEMATOLOGY MCV 93.0 80.0 - 98.0 06/30/2019 [facility] HEMATOLOGY MCH 30.9 27.0 - 31.0 06/30/2019 [facility] HEMATOLOGY MCHC 33.2 32.0 - 36.0 06/30/2019 [facility] HEMATOLOGY RDW 12.2 11.5 - 14.5 06/30/2019 [facility] HEMATOLOGY Platelet 19 133 - 450 06/30/2019 Result Comment: Critical Result(s) farley d to Zhen Walter at 06/30/2019 06:06 byJw Read back OK. [facility] HEMATOLOGY MPV 11.8 7.4 - 10.4 06/30/2019 [facility] ANEMIA STUDY Ferritin Lvl 595 5 - 204 06/28/2019 [facility] ANEMIA STUDY Folate Lvl 46.0 >=3.0 ng/mL 06/28/2019 [facility] ANEMIA STUDY Vitamin B12 Lvl 455 254 - 1320 06/28/2019 [facility] CHEM PANEL LDH 203 98 - 192 06/28/2019 [facility] CHEM PANEL Glucose Lvl 78 70 - 99 06/28/2019 [facility] CHEM PANEL BUN 14 7 - 22 06/28/2019 [facility] CHEM PANEL Creatinine Lvl 0.78 0.50 - 1.40 06/28/2019 [facility] CHEM PANEL Sodium Lvl 141 135 - 145 06/28/2019 [facility] CHEM PANEL Potassium Lvl 3.5 3.5 - 5.1 06/28/2019 [facility] CHEM PANEL Chloride Lvl 103 95 - 109 06/28/2019 [facility] CHEM PANEL CO2 27 24 - 32 06/28/2019 [facility] CHEM PANEL Calcium Lvl 9.0 8.5 - 10.5 06/28/2019 [facility] CHEM PANEL Total Protein 6.7 6.4 - 8.4 06/28/2019 [facility] CHEM PANEL Albumin Lvl 3.7 3.5 - 5.0 06/28/2019 [facility] CHEM PANEL ALT 15 0 - 65 06/28/2019 [facility] CHEM PANEL AST 13 0 - 37 06/28/2019 [facility] CHEM PANEL Alk Phos 112 39 - 136 06/28/2019 [facility] CHEM PANEL Bili Total 0.4 0.2 - 1.3 06/28/2019 [facility] CHEM PANEL eGFR 77 06/28/2019 Result [...] should be multiplied by the estimated BMI. [facility] CHEM PANEL AGAP 14.5 10.0 - 20.0 06/28/2019 [facility] CHEM PANEL B/C Ratio 18 6 - 25 06/28/2019 [facility] CHEM PANEL Globulin 3.0 2.7 - 4.2 06/28/2019 [facility] CHEM PANEL A/G Ratio 1.2 0.7 - 1.6 06/28/2019 [facility] HEMATOLOGY WBC 9.3 3.7 - 10.4 06/28/2019 [facility] HEMATOLOGY RBC 3.77 4.20 - 5.40 06/28/2019 [facility] HEMATOLOGY Hgb 11.5 12.0 - 16.0 06/28/2019 [facility] HEMATOLOGY Hct 35.1 36.0 - 48.0 06/28/2019 [facility] HEMATOLOGY MCV 92.9 80.0 - 98.0 06/28/2019 [facility] HEMATOLOGY MCH 30.6 27.0 - 31.0 06/28/2019 [facility] HEMATOLOGY MCHC 32.9 32.0 - 36.0 06/28/2019 [facility] HEMATOLOGY RDW 12.4 11.5 - 14.5 06/28/2019 [facility] HEMATOLOGY Platelet 31 133 - 450 06/28/2019 [facility] HEMATOLOGY MPV 15.5 7.4 - 10.4 06/28/2019 [facility] HEMATOLOGY Segs 70.1 45.0 - 75.0 06/28/2019 [facility] HEMATOLOGY Lymphocytes 22.0 20.0 - 40.0 06/28/2019 [facility] HEMATOLOGY Monocytes 5.6 2.0 - 12.0 06/28/2019 [facility] HEMATOLOGY Eosinophils 2.0 0.0 - 4.0 06/28/2019 [facility] HEMATOLOGY Basophils 0.3 0.0 - 1.0 06/28/2019 [facility] HEMATOLOGY Neutrophils # 6.5 1.5 - 8.1 06/28/2019 [facility] HEMATOLOGY Lymphocytes # 2.1 1.0 - 5.5 06/28/2019 [facility] HEMATOLOGY Monocytes # 0.5 0.0 - 0.8 06/28/2019 [facility] HEMATOLOGY Eosinophils # 0.2 0.0 - 0.5 06/28/2019 [facility] IMMUNOLOGY Haptoglobin 137 16 - 200 06/28/2019 [facility] IMMUNOLOGY HIV Ag/Ab 4th Gen Negat brooklynn *NA* (06/28/19 6:50 PM) Negative 06/28/2019 [facility] IMMUNOLOGY Hep C Ab Negat brooklynn *NA* (06/28/19 6:50 PM) Negative 06/28/2019 [facility] IMMUNOLOGY Hep B Core IgM Negat brooklynn *NA* (06/28/19 6:50 PM) Negative 06/28/2019 [facility] IMMUNOLOGY Hep A IgM Negat brooklynn *NA* (06/28/19 6:50 PM) Negative 06/28/2019 [facility] IMMUNOLOGY Hep Bs Ag Negat brooklynn *NA* (06/28/19 6:50 PM) Negative 06/28/2019 [facility] METAL Copper Lvl 111 72 - 166 06/28/2019 Result Comment: This test was developed and its performance characteristics
determined by [facility]. It has not been cleared or
approved by the Food and Drug Administration.
Detection Limit = 5
Performed At: [facility]
[id number], [place] [id number]
Jamie Santoyo MD Ph:[phone] [facility] HEMATOLOGY PB Smear Path Perip heral blood smear examination: Normocytic normochromic anemia. Schistocytes are not increased. Adequate WBCs with minimally reactive PMNs. Marked thrombocytopenia with presence of rare large forms. CPT: 85591 06/28/2019 [facility] HEMATOLOGY Platelet Count Blue Top 2 0 133 - 450 06/28/2019 Result Comment: Critical Result(s) farley d to Zhen Swann at 06/27/2019 21:46 by JA. Read back OK. [facility] BLOOD BANK RESULTS Path AB Blood Bank Physician Service The patient is a 69 year old female, presenting for complication of tracheostomy. No recent transfusion history. 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 This antibody is directed against Amoret antigen of the Jailyn blood group system. [...] with the resident, Dr. Becerra's interpretation. CPT: 67663- GC 06/27/2019 [facility] BLOOD BANK RESULTS ABO/Rh A NEG 06/27/2019 [facility] BLOOD BANK RESULTS Antibody Scrn Positive 4 (06/27/19 3:54 PM) 06/27/2019 Result Comment: 06/27/2019 1 7:27 [id number]
"Significant Findings of POS ABSC_ called to _Hang FUCHS at _06/27/2019 17:25_ by JNY__. Read Back OK" [facility] BLOOD BANK RESULTS AB Int Anti-K 06/27/2019 [facility] CHEM PANEL Glucose Lvl 101 70 - 99 06/27/2019 [facility] CHEM PANEL BUN 15 7 - 22 06/27/2019 [facility] CHEM PANEL Creatinine Lvl 0.79 0.50 - 1.40 06/27/2019 [facility] CHEM PANEL Sodium Lvl 141 135 - 145 06/27/2019 [facility] CHEM PANEL Potassium Lvl 4.0 3.5 - 5.1 06/27/2019 [facility] CHEM PANEL Chloride Lvl 104 95 - 109 06/27/2019 [facility] CHEM PANEL CO2 26 24 - 32 06/27/2019 [facility] CHEM PANEL Calcium Lvl 10.5 8.5 - 10.5 06/27/2019 [facility] CHEM PANEL eGFR 76 06/27/2019 Result [...] should be multiplied by the estimated BMI. [facility] CHEM PANEL AGAP 15.0 10.0 - 20.0 06/27/2019 [facility] HEMATOLOGY INR 0.99 0.85 - 1.17 06/27/2019 [facility] HEMATOLOGY PT 12.9 12.0 - 14.7 06/27/2019 [facility] HEMATOLOGY PTT 28.6 22.9 - 35.8 06/27/2019 [facility] HEMATOLOGY RBC Morph Vale l (06/27/19 3:54 PM) Normal 06/27/2019 [facility] HEMATOLOGY Plt Morph Vale l (06/27/19 3:54 PM) Normal 06/27/2019 [facility] ELECTROLYTES AGAP 12.9 10.0 - 20.0 11/06/2018 [facility] ELECTROLYTES CO2 18 24 - 32 11/06/2018 [facility] ELECTROLYTES Calcium Lvl 9.9 8.5 - 10.5 11/06/2018 [facility] ELECTROLYTES Potassium Lvl 4.9 3.5 - 5.1 11/06/2018 [facility] ELECTROLYTES Chloride Lvl 109 95 - 109 11/06/2018 [facility] ELECTROLYTES Creatinine Lvl 0.8 0 0.50 - 1.40 11/06/2018 [facility] ELECTROLYTES Sodium Lvl 135 135 - 145 11/06/2018 [facility] ELECTROLYTES Glucose Lvl 94 70 - 99 11/06/2018 [facility] ELECTROLYTES BUN 36 7 - 22 11/06/2018 [facility] ELECTROLYTES eGFR 75 11/06/2018 Result Comment: [...] should be multiplied by the estimated BMI. [facility] ELECTROLYTES Chloride Lvl 103 95 - 109 06/14/2016 [facility] ELECTROLYTES Potassium Lvl 5.1 3.5 - 5.1 06/14/2016 [facility] ELECTROLYTES AGAP 11.1 10.0 - 20.0 06/14/2016 [facility] ELECTROLYTES Calcium Lvl 9.2 8.5 - 10.5 06/14/2016 [facility] ELECTROLYTES CO2 26 24 - 32 06/14/2016 [facility] ELECTROLYTES eGFR 76 06/14/2016 Result Comment: [...] should be multiplied by the estimated BMI. [facility] ELECTROLYTES Creatinine Lvl 0.8 0 0.50 - 1.40 06/14/2016 [facility] ELECTROLYTES BUN 11 7 - 22 06/14/2016 [facility] ELECTROLYTES Sodium Lvl 135 135 - 145 06/14/2016 [facility] ELECTROLYTES Glucose Lvl 112 70 - 99 06/14/2016 [facility] Pathology Reports No Data Provided for [...] the shoulder s and thoracic spine. 06/29/2019 [facility] Abdomen complete US EXAM: US A [...] component of chronic renal parenchymal disease. 06/29/2019 [facility] Esophagus BA swallow function video DX [...] of different consistencies. Thin barium: Deep penetration. [place] barium: Deep penetration Pudding barium: Normal. Solid with barium: Normal. IMPRESSION: 1. Deep penetration with thin and necta r consistency barium. 2. Please also see detailed chart note by speech pathology. 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 COMPARISON: None. TECHNIQUE: Oral barium contrast of differing consistencies was given to the patient to assess swallowing mechanism. The study was performed in conjunction with speech pathology. FLUOROSCOPY TIME: 38 seconds Skin dose: 2.1 mGy DISCUSSION: The patient was given barium contrast of different consistencies. Thin barium: There was aspiration with nonproductive cough with thin consistency barium by spoon. [place] barium: There was aspiration with nonproductive cough with nectar consistency barium by spoon. Puree barium: No evidence of penetration or aspiration with puree consistency. IMPRESSION: 1. Aspiration with thin and nectar cons istencies. 2. Please also see detailed chart note by speech pathology. 11/07/2018 [facility] Chest w contrast CT EXAM: CT CHEST WITH CONTRAST DATE: 08/11/2018 at 4:27 PM ORGAN PIPE VOICER INDICATION: - J39.8 Other specified diseases of [...] Source Temperature Oral (F) 97.6 F 07/01/2019 [facility] Heart Rate 68 07/01/2019 [facility] Systolic (mm Hg) 121 07/01/2019 [facility] Diastolic (mm Hg) 78 07/01/2019 [facility] Temperature Oral (F) 97.6 F 07/01/2019 [facility] Heart Rate 106 07/01/2019 [facility] Systolic (mm Hg) 129 07/01/2019 [facility] Diastolic (mm Hg) 76 07/01/2019 [facility] Temperature Oral (F) 100 F 07/01/2019 [facility] Heart Rate 92 07/01/2019 [facility] Respitory Rate 18 07/01/2019 [facility] Systolic (mm Hg) 106 07/01/2019 [facility] Diastolic (mm Hg) 62 07/01/2019 [facility] Respitory Rate 18 06/30/2019 [facility] Respitory Rate 20 06/30/2019 [facility] Height 172.72 cm 06/29/2019 [facility] Height 172.72 cm 06/29/2019 [facility] Height 172.72 cm 06/28/2019 [facility] Weight 81.818 06/28/2019 [facility] BMI Calculated 27.43 06/28/2019 [facility] Weight 81.818 06/27/2019 [facility] Temperature Oral (F) 97.2 F 11/07/2018 [facility] Heart Rate 61 11/07/2018 [facility] Systolic (mm Hg) 98 11/07/2018 [facility] Diastolic (mm Hg) 61 11/07/2018 [facility] Respitory Rate 18 11/07/2018 [facility] Heart Rate 70 11/07/2018 [facility] Temperature Oral (F) 97.5 F 11/07/2018 [facility] Systolic (mm Hg) 104 11/07/2018 [facility] Diastolic (mm Hg) 64 11/07/2018 [facility] Respitory Rate 20 11/07/2018 [facility] Systolic (mm Hg) 134 11/07/2018 [facility] Diastolic (mm Hg) 72 11/07/2018 [facility] Respitory Rate 21 11/07/2018 [facility] Temperature Oral (F) 98.3 F 11/07/2018 [facility] BMI Calculated 28.12 11/06/2018 [facility] Weight 86.364 11/06/2018 [facility] Heart Rate 122 11/06/2018 [facility] Height 175.26 cm 11/02/2018 [facility] Respitory Rate 23 06/15/2016 [facility] Systolic (mm Hg) 134 06/15/2016 [facility] Diastolic (mm Hg) 88 06/15/2016 [facility] Respitory Rate 16 06/15/2016 [facility] Systolic (mm Hg) 113 06/15/2016 [facility] Diastolic (mm Hg) 71 06/15/2016 [facility] Respitory Rate 22 06/15/2016 [facility] Systolic (mm Hg) 113 06/15/2016 [facility] Diastolic (mm Hg) 71 06/15/2016 [facility] Temperature Oral (F) 98.9 F 06/14/2016 [facility] Heart Rate 80 06/14/2016 [facility] Height 172.72 cm 06/14/2016 [facility] BMI Calculated 51.04 06/14/2016 [facility] Weight 152.273 06/14/2016 [facility] Encounters Location Location Details Encounter Type Encounter Number Reason For Visit Attending Provider ADM Date DC Date Status Source [facility] Bedded Outpatient [id number] Joseph Hoffman 06/15/2016 06/15/2016 [facility] Outpatient [facility] [id number] 00 Brayden Downingseth 08/11/2018 08/12/2018 [facility] Observation [id number] Sally Neff 11/07/2018 11/07/2018 [facility] Inpatient [id number] Paulie Silva 06/27/2019 07/01/2019 [facility] Procedures Procedure Code Date Perfomer Comments Source Hip joint operations [id number] [facility]<sup>1</sup> 39 [id number] Five surgeries total [id number] [facility] PEG - Percutaneous endoscopic gastrostomy [id number] [facility] Tracheostomy [id number] [facility] Assessment and Plan Assessment and Plan [...] 06/27 with ENT. 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 Patient [...] time and patient is following with outpatient skiver blockers. - Review of peripheral blood smear revea [...] to continue to follow up with her skiver blockers. Patient was staffed withhematology attending physician, Dr.Juneja POSADAS. Yasmin Suero MD PGY2 - Internal Medicine [facility] | [facility] e-mail: [email or web address]| pager: [phone] TEACHING PHYSICIAN ADDENDUM. I saw and personally [...] 06/27/19 17:06:00 CDT, Status: In[facility], IMU, [facility] Expected LOS: 2 Midnights, Paulie Silva [...] Duration: 30 day, Stop date: 07/26/19 21:00:00 [employer] P[employer] VOICER, 0 6.Dysphagia(R13.10) When patient is cleared for [...] Duration: 30 day, Stop date: 07/27/19 9:00:00 [employer] P[employer] VOICER, 0 11.Irritable bowel syndrome (IBS)(K58.9) Continue amitriptyline and a bowel regimen while on narcotics for pain. 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 Likely 2 midnights. Full admission. Addendum by Jose M Jose MD on 06/28/2019 00:[address] [facility] and unable to provide updated med list. They believe pt switched over to mail order Rx as her prescriptions are all out-of-date but they do confirm a majority of current list. Lasix is uncertain. 07/01/2019 [facility] Extracted from:Title: ORL/HNS PARALEGAL SUPERVISOR note Author: Tamara Caro PARALEGAL SUPERVISOR Date: 11/07/18 PARALEGAL SUPERVISOR was called to BS by RN 2/ [...] planning as appropriate.RN and CN updated. 11/07/2018 [facility] Plan of Care No Data Provided for This Section Social History Social History Date Source Social History TypeResponse Alcohol Past Smoking Status Never smoker; Exposure to Tobacco Smoke None; Cigarette Smoking Last 365 Days No; Reg Smoking Cessation Counseling No entered on: 06/27/19 06/28/2019 [facility] Social History TypeResponse Alcohol Past Smoking [...]
--- OUTSIDE RECORDS SUMMARY | 2020-05-26 23:51 | XMS REPORT | Continuity of Care Document ---
Author Author [facility] t Organization [facility] t Address [address] [place] [address] Phone Unavailable Care Team Providers Care [employer] Assistant Name Role Phone DO Damian HO DO OSWALD PCP Jeison CIFUENTES Attphys Unavailable CAITLYN ROMERO [...] Type Policy Number Effective Date Expiration Date [id number] 00:00:00 [facility] [id number] 2019 00:00:00 FLAVIO thompson [facility] [id number] 2018 00:00:00 2018 00:00:00 FLAVIO Cerda [facility] Problems Condition Name Condition Details Condition Category Status Onset Date Resolution Date Last Treatment Date Treating Clinician Comments Source TRACH TRAC H Active 06/27/2019 [facility] Diagnosis Active 2019-06-27 00:00:00 2019-07-12 22:28:00 [facility] TRACHEOSTOMY STATUS TRA HEOSTOMY STATUS Active 09/08/2018 [facility] Diagnosis Active 2018-09-08 00:00:00 2019-06-20 09:18:00 [facility] UNK UNK Active 05/19/2016 [facility] Active 2016-05-19 00:00:00 2016-06-15 12:27:00 M luis Chaudhary 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 03/01/2019 OSCAR Chaudhary Problem 2019-03-01 11:10:18 [facility] Atherosclerosis of aorta Athe rosclerosis of aorta 03/01/2019 OSCAR Chaudhary Problem 2019-03-01 11:10:18 [facility] Diaphragmatic hernia without obstruction or gangrene Diaphragmatic hernia without obstruction or gangrene 03/01/2019 OSCAR Chaudhary Problem 2019-03-01 11:10:18 Irene Chaudhary Arthritis (disorder) Arth ritis (disorder) Active Problem 07/03/2019 [facility] Problem Active 2019-07-03 21:23:40 Irene Chaudhary Benign hypertension (disorder) Benign hypertension (disorder) Active Problem 07/03/2019 [facility] [place] Problem Active 2019-07-03 21:23:40 Jeremy Chaudhary Diabetes mellitus (disorder) D iabetes mellitus (disorder) Active Problem 07/03/2019 [facility] OSCAR Chaudhary [place] Problem Active 2019-07-03 21:23:40 Jeremy Chaudhary Fibromyositis (disorder) Fibr omyositis (disorder) Active Problem 07/03/2019 [facility] OSACR ChaudharyMH [place] Problem Active 2019-07-03 21:23:40 Patricia Chaudhary Gastroesophageal reflux disease (disorder) Gastroesophageal reflux disease (disorder) Active Problem 07/03/2019 [facility] Problem Active 2019-07-03 21:23:40 Irene Chaudhary Generalized obesity (disorder) Generalized obesity (disorder) Active Problem 07/03/2019 [facility] [place] Problem Active 2019-07-03 21:23:40 Jeremy Chaudhary Heart murmur (finding) Hear t murmur (finding) Active Problem 07/03/2019 [facility] Problem Active 2019-07-03 21:23:40 Patricia Chaudhary Hypothyroidism (disorder) Hypo thyroidism (disorder) Active Problem 07/03/2019 [facility] Problem Active 2019-07-03 21:23:40 Irene Chaudhary Irritable colon (disorder) Irr itable colon (disorder) Active Problem 07/03/2019 [facility] Problem Active 2019-07-03 21:23:40 Jeremy Chaudhary UNSPECIFIED TRACHEOSTOMY COMPLICATION UNSPECIFIED TRACHEOSTOMY COMPLICATION Active [facility] Diagnosis Active 2019-07-12 22:28:00 Irene [place] Dyspnea Dyspnea Problem Active [facility] Thrombocytopenia Thrombocytopenia Problem Active [facility] Stenosis of trachea Trachea, stenosis Problem Active [facility] Tracheostomy complication Tracheostomy complication Problem Active [facility] [place] of tracheostomy Tracheostomy malfunction Problem Active [facility] Aspiration pneumonia Aspiration pneumonia Problem Active [facility] Diarrhea Diarrhea Problem Active [facility] Dislodged gastrostomy tube Dislodged gastrostomy tube Problem Active [facility] History of extended-spectrum beta-lactam ase producing Klebsiella pneumoniae infection History of ESBL Klebsiella pneumoniae infection Problem Active [facility] Leukocytosis Leukocytosis Problem Active [facility] Urinary tract infection UTI (urinary tract infection) Problem Active [facility] Acute on chronic respiratory failure Acute and chronic respi ratory failure Problem Active [facility] Acute bronchitis Acute bronchitis Problem Active [facility] Hemoptysis Hemoptysis Problem Active [facility] Anxiety Problem Active [facility] Other specified diseases of upper respiratory tract Other specified diseases of upper respiratory tract 08/17/2018 03/01/2019 NAYA MOORE [place] Problem 2018-08-17 07:30:28 2019-03-01 11:10:18 2 11:10:18 [facility] Allergies, Adverse Reactions, Alerts Allergy Name Allergy Type Status Severity Reaction(s) Onset Date Inacti ve Date Treating Clinician Comments Source Penicillins DA Active [place] 2019-08-02 00:00:00 [facility] heparin DA Active U 2019-08-02 00:00:00 [facility] No Known Drug Allergies DA Active U 2019-07-28 00:00:00 [facility] Penicillins DA Active 2018-12-03 00:00:00 [facility] heparin DA Active 2018-12-03 00:00:00 [facility] titanium DA Active 2018-12-03 00:00:00 [facility] Titanium Allergy to substance Active 2018-06-21 00:00:00 [facility] Penicillin Allergy to substance Active 2018-06-21 00:00:00 [facility] Penicillins DA Active 2017-11-11 00:00:00 [facility] titanium DA Active 2017-11-11 00:00:00 [facility] heparin DA Active 2017-11-11 00:00:00 [facility] penicillins penicillins Active [facility] heparin heparin Active [facility] Other Environmental Allergy<sup>1</sup> Other Environmental Allergy<sup>1</sup> Active [facility] vanesa Social History Social Habit Start Date Stop Date Quantity Comments Source Social History 2016-06-14 17:34:36 2016-06-14 17:34:36 [facility] Sex Assigned At 1950 00:00:00 1950 00:00:00 Female [facility] Medications Ordered Medication Name Filled Medication Name Start Date Stop Da te Current Medication? Ordering Clinician Indication Dosage Frequency Signature (SIG) Comments Components Source Fluconazole Fluconazole 2019-07-13 09:42:00 Yes 100 D aily [facility] Ascorbic Acid Ascorbic Acid 2019-07-13 07:50:00 Yes 500 Twice A Day [facility] Ferrous Sulfate Ferrous Sulfate 2019-07-13 07:50:00 Yes 325 Twice A Day [facility] levothyroxine 175 mcg (0.175 mg) oral tablet [...] IN Q12H, 0 Refill(s) Irene Chaudhary sennosides, [facility] 2019-06-29 02:00:00 No Notes: (Same as: Senokot) [...] absorption of this medication. (Same as: Levothroid) Samanthaor ial Jet Sodium Chloride 0.9% IV 1,000 mL 2019-06-28 04:57:00 No 1,000 mL, Rate: 75 ml/hr, Infuse over: 13.3 hr, Route: IV, Dosing Weight 81.818 kg, Total Volume: 1,000, Start date: 06/27/19 23:57:00 CDT, Duration: 30 day, Stop date: 07/27/19 23:56:00 DATA ADMINISTRATOR, 2, m2, 0 [facility] Oxycodone Hydrochloride 5 MG Oral Tablet 2019-06-28 02:38:00 No Notes: (Same as: Roxicodone) [facility] Naloxone 2019-06-28 02:38:00 No Notes: Same as Narcan [facility] Melatonin 2019-06-28 02:38:00 No Notes: (Sa me as: Melatonin) [facility] Amitriptyline 2019-06-28 02:00:00 No Notes: (Same as: Elavil) [facility] ondansetron (ANES) 2019-06-28 00:26:00 No Route: IV, Drug form: INJ, ONCE, Stop date: 06/27/19 19:26:00 CDT [facility] glycopyrrolate ([facility]) 2019-06-28 00:26:00 No Route: IV, Drug form: INJ, ONCE, Stop date: 06/27/19 19:26:00 CDT [facility] neostigmine (ANES) 2019-06-28 00:26:00 No Route: IV, Drug form: INJ, ONCE, Stop date: 06/27/19 19:26:00 CDT [facility] dexamethasone (ANES) 2019-06-27 23:53:00 No Route: IV, Drug form: INJ, ONCE, Stop date: 06/27/19 18:53:00 CDT [facility] fentaNYL (ANES) 2019-06-27 23:38:00 No Route: IV, Drug form: INJ, ONCE, Stop date: 06/27/19 18:38:00 [facility] lidoc[facility] ([facility]) 2019-06-27 23:33:00 No Route: IV, Drug form: INJ, ONCE, Stop date: 06/27/19 18:33:00 CDT [facility] propofol (ANES) 2019-06-27 23:33:00 No Route: IV, Drug form: INJ, ONCE, Stop date: 06/27/19 18:33:00 [facility] rocuronium (ANES) 2019-06-27 23:23:00 No Route: IV, Drug form: INJ, ONCE, Stop date: 06/27/19 18:23:00 CDT [facility] Chaudhary phenylephrine (ANES) 2019-06-27 23:23:00 No Route: IV, Drug form: INJ, ONCE, Stop date: 06/27/19 18:23:00 CDT [facility] Lactated Ringers Injection IV ([facility]) 1000 mL 2019-06-27 22:32:00 No Route: IV, Total Volume: 1,000, Start date: 06/27/19 17:32:00 CDT, Stop date: 06/27/19 18:32:00 CDT [facility] Dextrose 50% Syringe 2019-06-27 22:30:00 No 12.5 gm, 25 mL, Route: IVP, Drug Form: INJ, Dosing Weight 81.818, kg, PRN, PRN Blood Glucose Results, Start date: 06/27/19 17:30:00 CDT, Duration: 30 day, Stop date: 07/27/19 16:29:00 DATA ADMINISTRATOR, 0 [facility] Glucagon 2019-06-27 22:30:00 No 1 mg, Route: IM, Drug form: PDR/INJ, PRN, Dosing Weight 81.818, kg, PRN Blood Glucose Results, Start date: 06/27/19 17:30:00 CDT, Duration: 30 day, Stop date: 07/27/19 16:29:00 DATA ADMINISTRATOR, 0 [facility] Insulin regular 2019-06-27 22:30:00 No Notes: (Same as: Humulin R) Roll in palms of hands gently; Do not shake vigorously. WASTE: F/P - Black; E - IPICO Trash Bin Stable for 31 days at room temperature Expires in days from Date [facility] Dextrose 50% Syringe 2019-06-27 22:06:00 No 12.5 gm, 25 mL, Route: IVP, Drug Form: INJ, Dosing Weight 81.818, kg, PRN, PRN Blood Glucose Results, Start date: 06/27/19 17:06:00 CDT, Duration: 30 day, Stop date: 07/27/19 16:05:00 DATA ADMINISTRATOR, 0 [facility] Glucagon 2019-06-27 22:06:00 No 1 mg, Route: IM, Drug form: PDR/INJ, PRN, Dosing Weight 81.818, kg, PRN Blood Glucose Results, Start date: 06/27/19 17:06:00 CDT, Duration: 30 day, Stop date: 07/27/19 16:05:00 DATA ADMINISTRATOR, 0 [facility] Bisacodyl 2019-06-27 22:06:00 No Notes: (Same As: Dulcolax, Bisco-Lax) [facility] Ondansetron 2019-06-27 22:06:00 No Notes: (Same as: Zofran) MEDICATION WASTE Product Size: 4 mg Product Wasted: ___ mg [facility] Melatonin 2019-06-27 22:06:00 No Notes: (Sa me as: Melatonin) [facility] Acetaminophen 2019-06-27 22:06:00 No Notes: Do not exceed 4 gm/day. (Same as: Tylenol) [facility] Saline Flush 0.9% 2019-06-27 20:12:00 No 10 mL, Route: IVP, Drug Form: INJ, Dosing Weight 81.818, kg, PRN, PRN Line Flush, Start date: 06/27/19 15:12:00 CDT, Duration: 30 day, Stop date: 07/27/19 14:11:00 DATA ADMINISTRATOR, 0 [facility] potassium chloride 2018-11-07 15:00:00 No Notes: (Same as: Potassium Chloride) [facility] Thyroxine 2018-11-07 15:00:00 No Notes: Take 1 hour before or 2 hours after meal; Enteral feeds may interefere with the absorption of this medication. (Same as: Levothroid) [facility] Furosemide 40 MG Oral Tablet [Lasix] 2018-11-07 15:00:00 No Notes: (Same as: Lasix) May cause GI upset. Give with food or milk. [facility] Allopurinol 2018-11-07 15:00:00 No Notes: ( Same as: Zyloprim) [facility] Metformin hydrochloride 500 MG Oral Tablet 2018-11-07 14:00:00 No Notes: (Same as: Glucophage) Take with meal [facility] Acetaminophen 2018-11-07 06:00:00 No Notes: Max acetaminophen = 4000mg/day (4 gm/day). (Same as: Tylenol) [facility] Dicyclomine 2018-11-07 03:00:00 No Notes: ( Same as:Bentyl) [facility] Amitriptyline 2018-11-07 03:00:00 No Notes: (Same as: Elavil) [facility] tramadol hydrochloride 50 MG Oral Tablet 2018-11-06 23:00:00 No Notes: Not to exceed 400mg/day. (Same As: Ultram) [facility] Docusate 2018-11-06 23:00:00 No Notes: (Prasanth e as: Colace) [facility] Ondansetron 2018-11-06 23:00:00 No Notes: (Same as: Zofran) MEDICATION WASTE Product Size: 4 mg Product Wasted: ___ mg [facility] Promethazine 2018-11-06 22:16:00 No Notes: Do not give IV push. (Same as: Phenergan) [facility] Ondansetron 2018-11-06 22:16:00 No Notes: (Same as: Zofran) MEDICATION WASTE Product Size: 4 mg Product Wasted: ___ mg [facility] Naloxone 2018-11-06 22:16:00 No Notes: Same as Narcan [facility] Oxycodone 2018-11-06 22:16:00 No Notes: (Sa me as: Roxicodone) [facility] Acetaminophen 2018-11-06 22:16:00 No Notes: Max acetaminophen 4000 mg/day (4 gm/day). (Same as: Tylenol Extra Strength) [facility] Labetalol 2018-11-06 22:16:00 No 10 mg, 2 mL, Route: IVP, Drug form: INJ, Q5Min, Dosing Weight 86.364, kg, PRN Elevated BP, Start date: 11/06/18 16:16:00 DATA ADMINISTRATOR, Duration: 5 doses or times, Stop date: 11/07/18 0:00:00 DATA ADMINISTRATOR [facility] esmolol 2018-11-06 22:16:00 No Notes: (Same as: Brevibloc) [facility] Flumazenil 2018-11-06 22:16:00 No Notes: (S melanie as: Romazicon) [facility] glycopyrrolate ([facility]) 2018-11-06 22:15:00 No Route: IV, Drug form: INJ, ONCE, Stop date: 11/06/18 16:15:00 DATA ADMINISTRATOR [facility] ondansetron ([facility]) 2018-11-06 22:15:00 No Route: IV, Drug form: INJ, ONCE, Stop date: 11/06/18 16:15:00 DATA ADMINISTRATOR [facility] neostigmine ([facility]) 2018-11-06 22:15:00 No Route: IV, Drug form: INJ, ONCE, Stop date: 11/06/18 16:15:00 DATA ADMINISTRATOR [facility] dexamethasone ([facility]) 2018-11-06 22:11:00 No Route: IV, Drug form: INJ, ONCE, Stop date: 11/06/18 16:11:00 [facility] fentaNYL ([facility]) 2018-11-06 22:11:00 No Route: IV, Drug form: INJ, ONCE, Stop date: 11/06/18 16:11:00 DATA ADMINISTRATOR [facility] propofol ([facility]) 2018-11-06 22:11:00 No Route: IV, Drug form: INJ, ONCE, Stop date: 11/06/18 16:11:00 DATA ADMINISTRATOR [facility] rocuronium ([facility]) 2018-11-06 21:56:00 No Route: IV, Drug form: INJ, ONCE, Stop date: 11/06/18 15:56:00 DATA ADMINISTRATOR [facility] Lactated Ringers Injection IV ([facility]) 1000 mL 2018-11-06 21:16:00 No Route: IV, Total Volume: 1,000, Start date: 11/06/18 15:16:00 DATA ADMINISTRATOR, Stop date: 11/06/18 16:16:00 [facility] sugammadex 2018-11-06 20:59:00 No Notes: (S melanie as: Bridion) [facility] 8 HR Acetaminophen 650 MG Extended [...] Acid 2018-08-14 07:37:00 Yes 1 Cathy ly [facility] Acetaminophen With Codeine (Tylenol With Codeine #3 Ta blet) 1 Each TABLET Acetaminophen With Codeine (Tylenol With Codeine #3 Tablet) 1 Each TABLET 2018-08-04 09:13:00 Yes 300 Every 6 Hours for Pain [facility] Loperamide Hcl (Imodium*) 2 Mg CAP Loperamide Hcl (Imodium*) 2 Mg CAP 2018-08-04 09:13:00 Yes 2 Three Times A Day as needed for Diarrhea [facility] Vancomycin Hcl (Vancocin Hcl) 250 Mg CAPSULE Vancomyci n Hcl (Vancocin Hcl) 250 Mg CAPSULE 2018-08-04 09:13:00 Yes 250 Every 6 Hours [facility] Loperamide Hcl (Imodium*) 2 Mg CAP Loperamide Hcl (Imodium*) 2 Mg CAP 2018-06-28 09:37:00 2018-08-04 00:00:00 No 2 Three Times A Day as needed for Diarrhea [facility] Vancomycin Hcl (Vancocin Hcl) 250 Mg CAPSULE Vancomyci n Hcl (Vancocin Hcl) 250 Mg CAPSULE 2018-06-28 09:37:00 2018-08-04 00:00:00 No 250 Every 6 Hours [facility] Allopurinol Allopurinol 2018-06-28 09:35:00 Yes 100 D aily [facility] Amitriptyline Hcl Amitriptyline Hcl 2018-06-28 09:35:00 Yes 25 Bedtime [facility] Clonidine Hcl (Catapres) 0.1 Mg TABLET Clonidine Hcl (Catapr es) 0.1 Mg TABLET 2018-06-28 09:35:00 Yes .1 Every 8 Hours as n eeded for Sbp>160 [facility] Furosemide (Lasix) 40 Mg TABLET Furosemide (Lasix) 40 Mg TAB LET 2018-06-28 09:35:00 Yes 40 Daily [facility] Insulin Aspart (Novolog) 100 Units/1 Ml INJ Insulin As part (Novolog) 100 Units/1 Ml INJ 2018-06-28 09:35:00 Yes 0 Every 6 Hours [facility] Lactobacillus Acidophilus (Acidophilus) 1 Each TAB.ELMA W Lactobacillus Acidophilus (Acidophilus) 1 Each TAB.CHEW 2018-06-28 09:35:00 Yes 1 Twice A Day [facility] Levothyroxine Sodium (Synthroid) 75 Mcg TAB Levothyrox ine Sodium (Synthroid) 75 Mcg TAB 2018-06-28 09:35:00 Yes 75 Daily@06 [facility] Lorazepam Lorazepam 2018-06-28 09:35:00 Yes .5 Three Times A Day as needed for Anxiety [facility] Metoclopramide Hcl (Reglan) 5 Mg TABLET Metoclopramide Hcl ( Reglan) 5 Mg TABLET 2018-06-28 09:35:00 Yes 5 Three Times A Day [facility] Mucomyst Mucomyst 2018-06-28 09:35:00 Yes 4 Twice A Day as needed for Thick Secretions [facility] Potassium Chloride (K Dur*) 10 Meq TABCR Potassium Chl oride (K Dur*) 10 Meq TABCR 2018-06-28 09:35:00 Yes 20 Daily [facility] Sitagliptin Phosphate (Januvia) 100 Mg TABLET Sitaglip tin Phosphate (Januvia) 100 Mg TABLET 2018-06-28 09:35:00 Yes 50 Daily [facility] Acetaminophen With Codeine (Tylenol With Codeine #3 Ta blet) 1 Each TABLET Acetaminophen With Codeine (Tylenol With Codeine #3 Tablet) 1 Each TABLET 2018-06-28 09:35:00 2018-08-04 00:00:00 No 300 Every 6 Hours for Pain [facility] Cholestyramine (Cholestyramine Light Packet) 4 Gm PACK Cholestyramine (Cholestyramine Light Packet) 4 Gm PACK 2018-06-28 09:35:00 2018-08-04 00:00:00 No 4 Twice A Day as needed for Diarrhea [facility] Simethicone Simethicone 2018-06-28 09:35:00 2018-08-04 00:00:00 No 80 After Meals And At Bedtime as needed for Gas [facility] Cholestyramine (Cholestyramine Light Packet) 4 Gm PACK Cholestyramine (Cholestyramine Light Packet) 4 Gm PACK 2018-06-06 08:41:00 2018-06-28 00:00:00 No 4 Twice A Day as needed for Diarrhea [facility] Mucomyst Mucomyst 2018-04-15 08:49:00 2018-06-28 00:00:00 No 4 Twice A Day as needed for Thick Secretions [facility] Clonidine Hcl (Catapres) 0.1 Mg TABLET Clonidine Hcl (Catapr es) 0.1 Mg TABLET 2018-04-15 08:48:00 2018-06-28 00:00:00 No .1 Every 8 Hours as needed for Sbp>160 [facility] Insulin Aspart (Novolog) 100 Units/1 Ml INJ Insulin As part (Novolog) 100 Units/1 Ml INJ 2018-04-13 08:05:00 2018-06-28 00:00:00 No 0 Ev lynne 6 Hours [facility] Potassium Chloride (K Dur*) 10 Meq TABCR Potassium Chl oride (K Dur*) 10 Meq TABCR 2018-04-13 08:01:00 2018-06-28 00:00:00 No 20 Koby y [facility] Balsam Tarzan/Corsicana Oil (Venelex Ointment) 60 Gm OINT.. .G. Balm Felipe/[place] Oil (Venelex Ointment) 60 Gm OINT...G. 2018-03-26 15:39:00 2018-04-13 00:00:00 No 60 Twice A Day [facility] Dextrose (Dextrose 50%-Water Syringe) 50 Ml INJ Dextro se (Dextrose 50%-Water Syringe) 50 Ml INJ 2018-03-26 15:39:00 2018-04-13 00:00:00 No 50 As Needed as needed for Blood Sugar [facility] Levalbuterol Hcl (Xopenex) 1.25 Mg/3 Ml VIAL.BANNER Leval buterol Hcl (Xopenex) 1.25 Mg/3 Ml VIAL.NEB 2018-03-26 15:39:00 2018-04-13 00:00:00 No 1.25 Rt Q6h [facility] Lorazepam Lorazepam 2018-03-26 15:39:00 2018-04-13 00:00:00 No 1 Every 6 Hours as needed for Agitation [facility] Vancomycin Hcl (Vancocin Hcl) 250 Mg CAPSULE Vancomyci n Hcl (Vancocin Hcl) 250 Mg CAPSULE 2018-03-09 08:23:00 2018-04-13 00:00:00 No 250 Every 6 Hours [facility] Metoprolol Tartrate (Lopressor) 25 Mg TAB Metoprolol T artrate (Lopressor) 25 Mg TAB 2018-03-09 07:21:00 Yes 25 Every 12 Hours [facility] Ascorbic Acid Ascorbic Acid 2018-03-09 07:21:00 2019-07-13 00:00:00 No 500 Twice A Day [facility] Cholestyramine (Cholestyramine Light Packet) 4 Gm PACK Cholestyramine (Cholestyramine Light Packet) 4 Gm PACK 2018-03-09 07:21:00 2018-08-04 00:00:00 No 4 Twice A Day as needed for Diarrhea [facility] Ferrous Sulfate Ferrous Sulfate 2018-03-09 07:21:00 2018-04-13 00:00:00 No 325 Twice Daily With Meals [facility] Acetaminophen Acetaminophen 2018-01-20 13:56:00 Yes 650 Every 4 Hours as needed for Pain And Temperature [facility] Balsam Tarzan/[place]ors[place] Oil (Venelex Ointment) 60 Gm OINT.. .G. Balsam Tarzan/[place] Oil (Venelex Ointment) 60 Gm OINT...G. 2018-01-20 13:56:00 Yes 0 Daily [facility] Ipratropium [place] Ipratropium [place] 2018-01-20 13:56:00 Yes 2.5 Rt Q6h [facility] Levalbuterol Hcl (Xopenex) 0.63 Mg/3 Ml VIAL.NEB Leval buterol Hcl (Xopenex) 0.63 Mg/3 Ml VIAL.NEB 2018-01-20 13:56:00 Yes .63 Rt Q6h as needed for Shorntess Of Breath [facility] Simethicone Simethicone 2018-01-20 13:56:00 Yes 8 0 After Meals And At Bedtime as needed for Gas [facility] Guaifenesin (Mucinex) 600 Mg TABLET.ER Guaifenesin (Mucinex) 600 Mg TABLET.ER 2018-01-20 13:56:00 2018-06-06 00:00:00 No 600 Every 6 Hours [facility] Calcium Carbonate Calcium Carbonate 2018-01-20 13:56:00 2018-04-13 00 :00:00 No 500 Daily [facility] Cholestyramine (Cholestyramine Light Packet) 4 Gm PACK Cholestyramine (Cholestyramine Light Packet) 4 Gm PACK 2018-01-20 13:56:00 2018-04-13 00:00:00 No 4 Twice A Day as needed for Diarrhea [facility] Levalbuterol Hcl (Xopenex) 0.63 Mg/3 Ml VIAL.NEB Leval buterol Hcl (Xopenex) 0.63 Mg/3 Ml VIAL.NEB 2018-01-20 13:56:00 2018-04-13 00:00:00 No . 63 Rt Q4h [facility] Neomy Sulf/Bacitrac Zn/Poly (Triple Antibiotic Ointmen t) 28 Gm OINT...G. Neomy Sulf/Bacitrac Zn/Poly (Triple Antibiotic Ointment) 28 Gm OINT...G. 2018-01-20 13:56:00 2018-04-13 00:00:00 No 0 Three Times A Da y [facility] Saline 0.65% Gregorio Soln Saline 0.65% Gregorio Soln 2018-01-20 13:56:00 2018-04-13 00:00:00 No 0 Every 4 Hours While Awake [facility] Metoprolol Succinate (Toprol Xl) 25 Mg TAB.ER.24H Meto prolol Succinate (Toprol Xl) 25 Mg TAB.ER.24H 2018-01-20 13:56:00 2018-03-09 00:00:00 No 12.5 Daily [facility] Insulin Regular, Human (Humulin R) 100 Unit/1 Ml VIAL Insulin Regular, Human (Humulin R) 100 Unit/1 Ml VIAL 2018-01-20 13:56:00 2018-02-24 00:00:00 No 0 Every 6 Hours [facility] Magnesium Oxide Magnesium Oxide 2018-01-20 13:56:00 2018-02-24 00:00:00 No 400 Twice A Day [facility] Pantoprazole Sod (Protonix) 40 Mg/Ml SUSP Pantoprazole Sod (Protonix) 40 Mg/Ml SUSP 2018-01-20 13:56:00 2018-02-24 00:00:00 No 40 Koby y [facility] Albuterol 0.833 MG/ML / Ipratropium [place] 0.167 MG/ML Inha lant Solution 2016-06-15 18:20:00 No 3 mL, Route: NEB, Dosing Weight 152.273, kg, ONCE, STAT, Start date: 06/15/16 13:20:00 CDT, Stop date: 06/15/16 13:20:00 CDT [facility] Calcium Chloride 0.0014 MEQ/ML / Potassi um Chloride 0.004 MEQ/ML / Sodium Chloride 0.103 MEQ/ML / Sodium Lactate 0.028 MEQ/ML Injectable Solution 2016-06-15 18:20:00 No 1,000 mL, Rate: 25 ml/hr, Infuse over: 40 hr, Route: IV, Dosing Weight 152.273 kg, Total Volume: 1,000, Start date: 06/15/16 13:20:00 CDT, Duration: 30 day, Stop date: 07/15/16 13:19:00 CDT Irene Chaudhary Sodium Chloride 0.154 MEQ/ML Injectable Solution 2016-06-15 [...] 300 Every 6 Hours for Pa in [facility] Allopurinol Allopurinol 2018-06-28 00:00:00 No 100 D aily [facility] Amitriptyline Hcl Amitriptyline Hcl 2018-06-28 00:00:00 No 25 Bedtime [facility] Budesonide (Budesonide Ec) 3 Mg CAPDR...ER Budesonide (Budesonide Ec) 3 Mg CAPDR...ER 2018-06-28 00:00:00 No 3 Daily [facility] Furosemide (Lasix) 40 Mg TABLET Furosemide (Lasix) 40 Mg TABLET 2018-06-28 00:00:00 No 40 Daily [facility] Furosemide (Lasix) 40 Mg TABLET Furosemide (Lasix) 40 Mg TABLET 2018-06-28 00:00:00 No 40 Daily [facility] Lactobacillus Acidophilus (Acidophilus) 1 Each TAB.ELMA W Lactobacillus Acidophilus (Acidophilus) 1 Each TAB.CHEW 2018-06-28 00:00:00 No 1 Daily [facility] Levothyroxine Sodium Levothyroxine Sodium 2018-06-28 00:00:00 No 50 Daily [facility] Levothyroxine Sodium (Synthroid) 50 Mcg TAB Levothyrox ine Sodium (Synthroid) 50 Mcg TAB 2018-06-28 00:00:00 No 50 Today At 6:30AM [facility] Lorazepam Lorazepam 2018-06-28 00:00:00 No .5 Three Times A Day as needed for Anxiety [facility] Lorazepam Lorazepam 2018-06-28 00:00:00 No .5 Every 8 Hours for Anxiety [facility] Metoclopramide Hcl (Reglan) 5 Mg TABLET Metoclopramide Hcl ( Reglan) 5 Mg TABLET 2018-06-28 00:00:00 No 5 Three Times A Day [facility] Metoclopramide Hcl Metoclopramide Hcl 2018-06-28 00:00:00 No 5 Three Times A Day [facility] Simethicone Simethicone 2018-06-28 00:00:00 No 8 0 After Meals And At Bedtime [facility] Sitagliptin Phosphate (Januvia) 100 Mg TABLET [place] tin Phosphate (Januvia) 100 Mg TABLET 2018-06-28 00:00:00 No 50 Daily [facility] Sitagliptin Phosphate (Januvia) 100 Mg TABLET [place] tin Phosphate (Sepuvia) 100 Mg TABLET 2018-06-28 00:00:00 No 50 Daily [facility] Lactobac Cmb #3/Fos/Pantethine (Probiotic & Acidophilu s Cap) 1 Each CAPSULE Lactobac Cmb #3/Fos/Pantethine (Probiotic & Acidophilus Cap) 1 Each CAPSULE 2018-06-06 00:00:00 No 1 Every 8 Hours [facility] Acetaminophen With Codeine (Tylenol With Codeine #3 Ta blet) 1 Each TABLET Acetaminophen With Codeine (Tylenol With Codeine #3 Tablet) 1 Each TABLET 2018-04-17 00:00:00 No 300 Every 4 Hours as nee ded for Pain [facility] Allopurinol Allopurinol 2018-04-17 00:00:00 No 100 D aily [facility] Amitriptyline Hcl Amitriptyline Hcl 2018-04-17 00:00:00 No 25 Bedtime [facility] Calcium Otc Calcium Otc 2018-04-13 00:00:00 No 500 [facility] Dicyclomine Hcl Dicyclomine Hcl 2018-04-13 00:00:00 No 20 Four Times Daily [facility] Famotidine (Pepcid) 20 Mg TABLET Famotidine (Pepcid) 20 Mg TABLE T 2018-04-13 00:00:00 No 40 Twice A Day [facility] Novolog Ss Novolog Ss 2018-04-13 00:00:00 No [facility] Metronidazole (Flagyl) 250 Mg TABLET Metronidazole (Flagyl) 250 Mg TABLET 2018-03-09 00:00:00 No 500 Every 8 Hours [facility] Ipratropium/Albuterol Sulfate (Combivent Respimat Inha l [place]) 4 Gm AER.W.ADAP Ipratropium/Albuterol Sulfate (Combivent Respimat Inhal [place]) 4 Gm AER.W.ADAP 2018-02-24 00:00:00 No 4 Every 6 Hours Whil e Awake [facility] Metformin Hcl Metformin Hcl 2018-02-24 00:00:00 No 1000 Twice A Day [facility] Potassium Chloride Potassium Chloride 2018-02-24 00:00:00 No 10 Twice A Day [facility] Prednisone Prednisone 2018-02-24 00:00:00 No 20 Cathy ly [facility] Vital Signs Vital Name Observation Time Observation Value Comments Source Weight 2020-05-16 19:55:00 137 [lb_av] [facility] BMI (Body Mass Index) 2020-05-16 19:55:00 20.8 kg/m2 [facility] Weight 2020-02-29 16:01:00 137 [lb_av] [facility] BMI (Body Mass Index) 2020-02-29 16:01:00 20.8 kg/m2 [facility] Weight 2020-02-10 02:21:00 137 [lb_av] [facility] BMI (Body Mass Index) 2020-02-10 02:21:00 20.8 kg/m2 [facility] Body Temperature 2019-09-21 11:44:00 98.1 [degF] [facility] Temperature Oral (F) 2019-07-01 17:01:00 97.6 F [facility] Rate 2019-07-01 17:01:00 [facility] [place] Systolic (mm Hg) 2019-07-01 17:01:00 Jeremy [facility] [place] Diastolic (mm Hg) 2019-07-01 17:01:00 Mem o[facility] [place] Temperature Oral (F) 2019-07-01 13:09:00 97.6 F [facility] Rate 2019-07-01 13:09:00 [facility] Systolic (mm Hg) 2019-07-01 13:09:00 Jeremy rial [place] Diastolic (mm Hg) 2019-07-01 13:09:00 Mem orial [place] Temperature Oral (F) 2019-07-01 04:55:00 100 F [facility] Rate 2019-07-01 04:55:00 [facility] Respitory Rate 2019-07-01 04:55:00 [facility] [place] Systolic (mm Hg) 2019-07-01 04:55:00 [facility] Diastolic (mm Hg) 2019-07-01 04:55:00 [facility] Respitory Rate 2019-06-30 08:00:00 [facility] [place] Respitory Rate 2019-06-30 05:18:00 [facility] [place] Height 2019-06-29 23:34:00 172.72 cm [facility] Height 2019-06-29 22:30:00 172.72 cm [facility] [place] Height 2019-06-28 04:23:00 172.72 cm [facility] Weight 2019-06-28 04:23:00 [facility] BMI Calculated 2019-06-28 04:23:00 [facility] Weight 2019-06-27 19:21:00 [facility] [place] Temperature Oral (F) 2018-11-07 18:30:00 97.2 F [facility] [place] Heart Rate 2018-11-07 18:30:00 [facility] [place] Systolic (mm Hg) 2018-11-07 18:30:00 Jeremy [facility] Diastolic (mm Hg) 2018-11-07 18:30:00 [facility] Respitory Rate 2018-11-07 18:30:00 [facility] [place] Heart Rate 2018-11-07 12:28:00 [facility] Temperature Oral (F) 2018-11-07 12:28:00 97.5 F [facility] [place] Systolic (mm Hg) 2018-11-07 12:28:00 Jeremy [facility] Diastolic (mm Hg) 2018-11-07 12:28:00 [facility] Respitory Rate 2018-11-07 12:28:00 [facility] [place] Systolic (mm Hg) 2018-11-07 09:24:00 Jeremy rial [place] Diastolic (mm Hg) 2018-11-07 09:24:00 Mem o[facility] [place] Respitory Rate 2018-11-07 09:24:00 [facility] Temperature Oral (F) 2018-11-07 09:24:00 98.3 F [facility] BMI Calculated 2018-11-06 18:50:00 [facility] Weight 2018-11-06 18:50:00 [facility] [place] Heart Rate 2018-11-06 18:15:00 [facility] Height 2018-11-02 16:20:00 175.26 cm [facility] [place] Respitory Rate 2016-06-15 21:17:00 [facility] Systolic (mm Hg) 2016-06-15 21:17:00 Jeremy rial [place] Diastolic (mm Hg) 2016-06-15 21:17:00 [facility] Respitory Rate 2016-06-15 21:12:00 [facility] Systolic (mm Hg) 2016-06-15 21:12:00 Jeremy rial [place] Diastolic (mm Hg) 2016-06-15 21:12:00 Mem orial [place] Respitory Rate 2016-06-15 20:55:00 [facility] [place] Systolic (mm Hg) 2016-06-15 20:55:00 Jeremy rial [place] Diastolic (mm Hg) 2016-06-15 20:55:00 [facility] Temperature Oral (F) 2016-06-14 17:25:00 98.9 F [facility] [place] Heart Rate 2016-06-14 17:25:00 [facility] Height 2016-06-14 17:23:00 172.72 cm [facility] [place] BMI Calculated 2016-06-14 17:23:00 [facility] Weight 2016-06-14 17:23:00 [facility] Procedures Procedure Date / Time Performed Performing Clinician [facility] e Computed tomography of chest with contrast 2019-09-19 00:00:00 MARK ANTHONY FRIEDMAN [facility] BLOOD TRANSFUSION SERVICE 2019-09-19 00:00:00 CRISTIANE Abdul [facility] Hip joint operations [facility] rmann Hip replacement<sup>1</sup> Jeremy [facility] Hysterectomy [facility] PEG - Percutaneous endoscopic gastrostomy [facility] [place] [facility] of Care Planned Activity Planned Date Details Comments Source Instructions Generalized Anxiety Disorder [facility] Encounters Start Date/Time End Date/Time Encounter Type Admission Type Attendi [facility] Care Department Encounter ID Source 2020-05-16 19:57:00 2020-05-16 23:43:00 Departed Emergency Room PHOENIX CIFUENTES [facility] [id number] [facility] 2020-02-29 16:13:00 2020-02-29 17:46:00 Departed Emergency Room [facility] [id number] [facility] 2020-02-10 01:51:00 2020-02-10 07:39:00 Departed Emergency Room 1 PHOENIX CIFUENTES [facility] [id number] [facility] 2019-11-19 13:43:00 2019-11-19 18:44:00 Departed Emergency Room 1 CAITYLN ROMERO [facility] [id number] [facility] 2019-09-25 09:49:00 2019-09-25 16:49:00 Departed Emergency Room 1 DONOVAN MENJIVAR [facility] [id number] [facility] 2019-09-19 06:03:00 2019-09-21 14:48:00 Discharged Inpatient (obs) 1 DENISSE ILAN [facility] [id number] [facility] 2019-07-10 22:26:00 2019-07-13 13:30:00 Discharged Inpatient 1 ILAN STEIN [facility] [id number] [facility] 2019-06-27 14:12:55 2019-07-01 14:10:00 Outpatient Brenda Silva [facility] [id number] 2019-06-27 15:49:00 2019-06-27 14:12:00 Inpatient E [facility] MED [facility] 2019-06-14 17:40:00 2019-06-14 19:54:00 Departed Emergency Room 1 NATHAN CANNON [facility] [id number] [facility] 2019-05-09 09:21:00 2019-05-10 17:09:00 Discharged Inpatient 1 ILAN STEIN [facility] [id number] [facility] 2018-11-16 12:34:00 2018-11-16 21:40:00 Departed Emergency Room 1 WILIAM MARTINEZ [facility] [id number] [facility] 2018-11-06 18:20:00 2018-11-07 14:45:00 Outpatient Sally Neff [facility] [id number] 2018-11-06 18:20:00 2018-11-06 18:20:00 Outpatient [facility] [id number] [facility] 2018-08-12 06:34:00 2018-08-16 18:50:00 Discharged Inpatient 1 ILAN STEIN [facility] [id number] [facility] 2018-08-11 15:37:00 2018-08-11 23:59:[address]urd [facility] [id number] 2018-07-31 00:26:00 2018-08-04 19:30:00 Discharged Inpatient 1 ILAN STEIN [facility] [id number] [facility] 2018-06-21 15:33:00 2018-06-28 20:15:00 Discharged Inpatient 1 ILAN STEIN [facility] [id number] [facility] 2018-06-01 14:13:00 2018-06-06 18:21:00 Discharged Inpatient 1 ILAN STEIN [facility] [id number] [facility] 2018-05-14 06:09:00 2018-05-14 09:35:00 Departed Emergency Room 1 JENN MILLER [facility] [id number] [facility] 2018-04-14 11:59:00 2018-04-17 16:41:00 Discharged Inpatient 1 SHABBIR MÉNDEZ [facility] [id number] [facility] 2018-04-07 13:14:00 2018-04-07 18:25:00 Departed Emergency Room [facility] [id number] [facility] 2018-03-25 23:55:00 2018-03-26 21:45:00 Discharged Inpatient 1 PHOENIX CIFUENTES [facility] [id number] [facility] 2018-02-26 13:34:00 2018-03-09 13:35:00 Discharged Inpatient 1 ILAN STEIN [facility] [id number] [facility] 2018-02-10 18:18:00 2018-02-11 00:37:00 Departed Emergency Room 1 BERTHANATHANIEL ORELLANA [facility] [id number] [facility] 2018-01-06 18:52:00 2018-01-20 23:53:00 Discharged Inpatient ER ILAN STEIN [facility] [id number] [facility] 2017-10-25 03:00:00 2017-10-25 03:00:00 Registered Referred [facility] [id number] [facility] 2017-10-14 02:59:00 2017-10-14 02:59:00 Registered Referred [facility] [id number] [facility] 2017-10-10 02:58:00 2017-10-10 02:58:00 Registered Referred [facility] [id number] [facility] 2016-06-15 12:27:00 2016-06-15 16:15:00 Outpatient Joseph Hoffman [facility] [id number] Results Test Description Test Time Test Comments Results Result Comments Source CHEST SINGLE (PORTABLE) 2020-05-16 21:30:[address] [place], [place] [address] Patient Name: MOJGAN CUMMINGS MR #: [id number] : 1950 Age/Sex: 70/F Req #: [id number] Adm Physician: Ordered by: PHOENIX CIFUENTES MD Report #: [id number] Location: ER Room/Bed: Procedure: [id number] DX/CHEST SINGLE (PORTABLE) Exam Date: 05/16/20 Exam [...] CIFUENTES MD CHEST SINGLE (PORTABLE) 2020-02-10 04:21:00 [place] [id number] Patient Name: MOJGAN CUMMINGS MR #: [id number] : 1950 Age/Sex: 70/F Req #: [id number] Adm Physician: Ordered by: PHOENIX CIFUENTES MD Report #: [id number] Location: ER Room/Bed: Procedure: [id number] DX/CHEST SINGLE (PORTABLE) Exam Date: 02/10/20 Exam [...] Count (test code = 6690-2) 5.17 4.8-10.8 [facility] automated count (number/volume)2020-02-10 02:40:00* Test Item Value Reference Range Interpretation Comments Red Blood Count (test code = 789-8) 3.79 3.6-5.1 [facility] measurement (moles/volume)2020-02-10 02:40:00* Test Item Value Reference Range Interpretation Comments Hemoglobin (test code = 13609-3) 10.8 12.0-16.0 [facility] hematocrit (volume fraction)2020-02-10 02:40:00* Test Item Value Reference Range Interpretation Comments Hematocrit (test code = 4544-3) 33.4 34.2-44.1 [facility] erythrocyte mean corpuscular grknbl6123-97-31 02:40:00* Test Item Value Reference Range Interpretation Comments Mean Corpuscular Volume (test code = 787-2) 88.1 81-99 [facility] eryth[facility] mean corpuscular hemoglobin (mass per erythrocyte)2020-02-10 02:40:00* Test Item Value Reference Range Interpretation Comments Mean Corpuscular Hemoglobin (test code = 785-6) 28.5 28-32 [facility] mean corpuscular hemoglobin concentration measurement (mass/volume)2020-02-10 02:40:00* Test Item Value Reference Range Interpretation Comments Mean Corpuscular Hemoglobin Concent (test code = 786-4) 32.3 31-35 [facility]en[facility] FcpMs-Cyw9911-05-24 02:40:00* Test Item Value Reference Range Interpretation Comments Red Cell Distribution Width (test code = 27452-5) 12.5 11.7 -14.4 [facility] blood platelet count (count/volume)2020-02-10 02:40:00* Test Item Value Reference Range Interpretation Comments Platelet Count (test code = 777-3) 43 140-360 Results repeated and called to SIMON JERONIMO at 0336 on 02/10/20 by Gil lowry. Read back and verified.[facility] segmented neutrophil count as percentage of total tdeaismdzi8206-75-30 02:40:00* Test Item Value Reference Range Interpretation Comments Neutrophils (%) (Auto) (test code = 96273-6) 62.0 38.7-80.0 [facility] lymphocyte count as percentage ot total rmoyujegce6039-95-30 02:40:00* Test Item Value Reference Range Interpretation Comments Lymphocytes (%) (Auto) (test code = 736-9) 26.7 18.0-39.1 [facility] monocyte count as percentage of total xqptpwwaju5051-97-99 02:40:00* Test Item Value Reference Range Interpretation Comments Monocytes (%) (Auto) (test code = 5905-5) 6.4 4.4-11.3 [facility] eosinophil count as percentage of total flzxpxhdyn0953-86-05 02:40:00* Test Item Value Reference Range Interpretation Comments Eosinophils (%) (Auto) (test code = 713-8) 4.1 0.0-6.0 [facility] basophil count as percentage of total fqpyzbtlxe1108-37-09 02:40:00* Test Item Value Reference Range Interpretation Comments Basophils (%) (Auto) (test code = 706-2) 0.6 0.0-1.0 [facility]en[facility]oroscopic procedure less than one hour mrrqxuki4415-61-70 02:40:00* Test Item Value Reference Range Interpretation Comments IM GRANULOCYTES % (test code = IM GRANULOCYTES %) 0.2 0.0- 1.0 [facility] neutrophil count 2020-02-10 02:40:00* Test Item Value Reference Range Interpretation Comments Neutrophils # (Auto) (test code = 751-8) 3.2 2.1-6.9 [facility] lymphocytes count (number/volume) 2020-02-10 02:40:00* Test Item Value Reference Range Interpretation Comments Lymphocytes # (Auto) (test code = 65341-2) 1.4 1.0-3.2 [facility] monocytes automated count (number/volume)2020-02-10 02:40:00* Test Item Value Reference Range Interpretation Comments Monocytes # (Auto) (test code = 742-7) 0.3 0.2-0.8 [facility] blood eosinophil count 2020-02-10 02:40:00* Test Item Value Reference Range Interpretation Comments Eosinophils # (Auto) (test code = 711-2) 0.2 0.0-0.4 [facility] blood basophil count (count/volume)2020-02-10 02:40:00* Test Item Value Reference Range Interpretation Comments Basophils # (Auto) (test code = 704-7) 0.0 0.0-0.1 [facility]enFluoroscopic procedure less than one hour imfvlfze5702-48-46 02:40:00* Test Item Value Reference Range Interpretation Comments Absolute Immature Granulocyte (auto (melina t code = Absolute Immature Granulocyte (auto) 0.01 0-0.1 [facility] sodium measurement (moles/volume)2020-02-10 02:40:00* Test Item Value Reference Range Interpretation Comments Sodium Level (test code = 2951-2) 141 136-145 [facility] plasma potassium measurement (moles/volume)2020-02-10 02:40:00* Test Item Value Reference Range Interpretation Comments Potassium Level (test code = 2823-3) 3.7 3.5-5.1 [facility] plasma chloride measurement (moles/volume)2020-02-10 02:40:00* Test Item Value Reference Range Interpretation Comments Chloride Level (test code = 2075-0) 109 98-107 [facility] or plasma carbon dioxide, total measurement (moles/volume)2020-02-10 02:40:00* Test Item Value Reference Range Interpretation Comments Carbon Dioxide Level (test code = 2028-9) 21 22-29 [facility] or plasma anion lyb7373-95-48 02:40:00* Test Item Value Reference Range Interpretation Comments Anion Gap (test code = 94725-4) 14.7 8-16 [facility] or plasma urea nitrogen measurement (mass/volume)2020-02-10 02:40:00* Test Item Value Reference Range Interpretation Comments Blood Urea Nitrogen (test code = 3094-0) 22 7-26 [facility] or plasma creatinine measurement (mass/volume)2020-02-10 02:40:00* Test Item Value Reference Range Interpretation Comments Creatinine (test code = 2160-0) 0.71 0.57-1.11 [facility] or plasma urea nitrogen/creatinine mass zlcay9831-43-94 02:40:00* Test Item Value Reference Range Interpretation Comments BUN/Creatinine Ratio (test code = 3097-3) 31 6-25 [facility]enEstimated glomerular filtration rate (GFR) exuhejfxbebnr8617-29-53 02:40:00* Test Item Value Reference Range Interpretation Comments Estimat Glomerular Filtration Rate (test code = 497430077) > 60 >60 Ranges were taken from the National Kidney Disease Education Program and the [facility] Kidney Foundation literature.Reference ranges:60 or greater: Zdfqqd67-29 ( for 3 consecutive months): Chronic kidney disease 15 or less: Kidney failureVal[facility]enGlucose pybaobjhadl2005-77-52 02:40:00* Test Item Value Reference Range Interpretation Comments Glucose Level (test code = DFN7862) 86 74-118 [facility] or plasma calcium measurement (mass/volume)2020-02-10 02:40:00* Test Item Value Reference Range Interpretation Comments Calcium Level (test code = 08285-7) 9.7 8.4-10.2 [facility] or plasma total bilirubin measurement (mass/volume)2020-02-10 02:40:00* Test Item Value Reference Range Interpretation Comments Total Bilirubin (test code = 1975-2) 0.3 0.2-1.2 [facility]enFluoroscopic procedure less than one hour gsezwdtk9839-92-61 02:40:00* Test Item Value Reference Range Interpretation Comments Aspartate Amino Transf (AST/SGOT) (test code = Aspartate Amino Transf (AST/SGOT)) 11 5-34 [facility] alanine aminotransferase measurement (enzymatic activity/volume)2020-02-10 02:40:00* Test Item Value Reference Range Interpretation Comments Alanine Aminotransferase (ALT/SGPT) (test code = 1742-6) 9 0-55 [facility]er[facility] protein measurement (mass/volume)2020-02-10 02:40:00* Test Item Value Reference Range Interpretation Comments Total Protein (test code = 2885-2) 6.3 6.5-8.1 [facility] albumin measurement (mass/volume)2020-02-10 02:40:00* Test Item Value Reference Range Interpretation Comments Albumin (test code = 1751-7) 3.6 3.5-5.0 [facility] globulin measurement (mass/volume) 2020-02-10 02:40:00* Test Item Value Reference Range Interpretation Comments Globulin (test code = 72999-1) 2.7 2.3-3.5 [facility] albumin/globulin mass qaygl4686-77-36 02:40:00* Test Item Value Reference Range Interpretation Comments Albumin/Globulin Ratio (test code = 1759-0) 1.3 0.8-2.0 [facility]er[facility] alkaline phosphatase measurement (enzymatic activity/volume)2020-02-10 02:40:00* Test Item Value Reference Range Interpretation Comments Alkaline Phosphatase (test code = 6768-6) 95 40-150 [facility]enBNP Umh-tPpj8803-82-24 02:40:00* Test Item Value Reference Range Interpretation Comments B-Type Natriuretic Peptide (test code = 68462-8) 31.4 0-100 [facility] creatine kinase measurement (enzymatic activity/volume)2020-02-10 02:40:00* Test Item Value Reference Range Interpretation Comments Creatine Kinase (test code = 2157-6) 20 29-168 [facility] creatine kinase MB measurement (mass/volume)2020-02-10 02:40:00* Test Item Value Reference Range Interpretation Comments Creatine Kinase MB (test code = 93956-2) 0.60 0-5.0 [facility]enTrop[facility] I measurement by highly sensitive enzyme shdjhvcldqu2611-03-20 02:40:00* Test Item Value Reference Range Interpretation Comments Troponin I (test code = 68727-7) < 0.001 0-0.300 [facility]enBlood leukocytes automated count (number/volume)2020-02-10 02:40:00* Test Item Value Reference Range Interpretation Comments White Blood Count (test code = 6690-2) 5.17 4.8-10.8 [facility]enBlood erythrocytes automated count (number/volume)2020-02-10 02:40:00* Test Item Value Reference Range Interpretation Comments Red Blood Count (test code = 789-8) 3.79 3.6-5.1 [facility]enBlood hemoglobin measurement (moles/volume)2020-02-10 02:40:00* Test Item Value Reference Range Interpretation Comments Hemoglobin (test code = 11065-8) 10.8 12.0-16.0 [facility]enAutomated blood hematocrit (volume fraction)2020-02-10 02:40:00* Test Item Value Reference Range Interpretation Comments Hematocrit (test code = 4544-3) 33.4 34.2-44.1 [facility]enAutomated erythrocyte mean corpuscular sqlaez5829-97-53 02:40:00* Test Item Value Reference Range Interpretation Comments Mean Corpuscular Volume (test code = 787-2) 88.1 81-99 [facility]enAutomated erythrocyte mean corpuscular hemoglobin (mass per erythrocyte)2020-02-10 02:40:00* Test Item Value Reference Range Interpretation Comments Mean Corpuscular Hemoglobin (test code = 785-6) 28.5 28-32 [facility]enAutomated erythrocyte mean corpuscular hemoglobin concentration measurement (mass/volume)2020-02-10 02:40:00* Test Item Value Reference Range Interpretation Comments Mean Corpuscular Hemoglobin Concent (test code = 786-4) 32.3 31-35 [facility] HarlingenRDW PepAi-Uyr3868-08-24 02:40:00* Test Item Value Reference Range Interpretation Comments Red Cell Distribution Width (test code = 04154-6) 12.5 11.7 -14.4 [facility]enAutomated blood platelet count (count/volume)2020-02-10 02:40:00* Test Item Value Reference Range Interpretation Comments Platelet Count (test code = 777-3) 43 140-360 Results repeated and called to SIMON JERONIMO at 0336 on 02/10/20 by Gil lowry. Read back and verified.[facility]lingenAutomated blood segmented neutrophil count as percentage of total doqeropoxw9607-51-23 02:40:00* Test Item Value Reference Range Interpretation Comments Neutrophils (%) (Auto) (test code = 14895-4) 62.0 38.7-80.0 [facility]enAutomated blood lymphocyte count as percentage ot total avzwjukrrj4050-52-95 02:40:00* Test Item Value Reference Range Interpretation Comments Lymphocytes (%) (Auto) (test code = 736-9) 26.7 18.0-39.1 [facility]enAutomated blood monocyte count as percentage of total hoifyphfea1422-38-99 02:40:00* Test Item Value Reference Range Interpretation Comments Monocytes (%) (Auto) (test code = 5905-5) 6.4 4.4-11.3 [facility]enAutomated blood eosinophil count as percentage of total rqhdovqnvu1491-47-46 02:40:00* Test Item Value Reference Range Interpretation Comments Eosinophils (%) (Auto) (test code = 713-8) 4.1 0.0-6.0 [facility]enAutomated blood basophil count as percentage of total zoisebttsn7604-89-99 02:40:00* Test Item Value Reference Range Interpretation Comments Basophils (%) (Auto) (test code = 706-2) 0.6 0.0-1.0 [facility]enFluoroscopic procedure less than one hour dqxnkoub2294-37-93 02:40:00* Test Item Value Reference Range Interpretation Comments IM GRANULOCYTES % (test code = IM GRANULOCYTES %) 0.2 0.0- 1.0 [facility]enAutomated blood neutrophil count 2020-02-10 02:40:00* Test Item Value Reference Range Interpretation Comments Neutrophils # (Auto) (test code = 751-8) 3.2 2.1-6.9 [facility]enBlood lymphocytes count (number/volume) 2020-02-10 02:40:00* Test Item Value Reference Range Interpretation Comments Lymphocytes # (Auto) (test code = 84674-5) 1.4 1.0-3.2 [facility]enBlood monocytes automated count (number/volume)2020-02-10 02:40:00* Test Item Value Reference Range Interpretation Comments Monocytes # (Auto) (test code = 742-7) 0.3 0.2-0.8 [facility]enAutomated blood eosinophil count 2020-02-10 02:40:00* Test Item Value Reference Range Interpretation Comments Eosinophils # (Auto) (test code = 711-2) 0.2 0.0-0.4 [facility]enAutomated blood basophil count (count/volume)2020-02-10 02:40:00* Test Item Value Reference Range Interpretation Comments Basophils # (Auto) (test code = 704-7) 0.0 0.0-0.1 [facility]enFluoroscopic procedure less than one hour hxlsjtvt3247-86-07 02:40:00* Test Item Value Reference Range Interpretation Comments Absolute Immature Granulocyte (auto (melina t code = Absolute Immature Granulocyte (auto) 0.01 0-0.1 [facility]enBl[facility] platelets count by estimate (number/volume)2020-02-10 02:40:00* Test Item Value Reference Range Interpretation Comments Platelet Estimate (test code = 52725-8) MARKEDLY DECREASED [facility]enPlatelet dkckmatyre5415-31-82 02:40:00* Test Item Value Reference Range Interpretation Comments Platelet Morphology Comment (test code = 23378-2) FEW LARGE [facility] HarlingenRBC dtqmdgsyqg8021-18-47 02:40:00* Test Item Value Reference Range Interpretation Comments Red Cell Morphology Comment (test code = 6742-1) NORMAL [facility]er[facility] sodium measurement (moles/volume)2020-02-10 02:40:00* Test Item Value Reference Range Interpretation Comments Sodium Level (test code = 2951-2) 141 136-145 [facility]er[facility] plasma potassium measurement (moles/volume)2020-02-10 02:40:00* Test Item Value Reference Range Interpretation Comments Potassium Level (test code = 2823-3) 3.7 3.5-5.1 [facility]er[facility] or plasma chloride measurement (moles/volume)2020-02-10 02:40:00* Test Item Value Reference Range Interpretation Comments Chloride Level (test code = 2075-0) 109 98-107 [facility]er[facility] or plasma carbon dioxide, total measurement (moles/volume)2020-02-10 02:40:00* Test Item Value Reference Range Interpretation Comments Carbon Dioxide Level (test code = 2028-9) 21 22-29 [facility]erum or plasma anion cvi5176-14-90 02:40:00* Test Item Value Reference Range Interpretation Comments Anion Gap (test code = 54131-9) 14.7 8-16 [facility] Hospitalerum or plasma urea nitrogen measurement (mass/volume)2020-02-10 02:40:00* Test Item Value Reference Range Interpretation Comments Blood Urea Nitrogen (test code = 3094-0) 22 7-26 [facility]erum or plasma creatinine measurement (mass/volume)2020-02-10 02:40:00* Test Item Value Reference Range Interpretation Comments Creatinine (test code = 2160-0) 0.71 0.57-1.11 [facility] Hospitalerum or plasma urea nitrogen/creatinine mass zkcah7065-55-39 02:40:00* Test Item Value Reference Range Interpretation Comments BUN/Creatinine Ratio (test code = 3097-3) 31 6-25 [facility]enEstimated glomerular filtration rate (GFR) jpzburizhxngo7639-45-81 02:40:00* Test Item Value Reference Range Interpretation Comments Estimat Glomerular Filtration Rate (test code = 419466456) > 60 >60 Ranges were taken from the National Kidney Disease Education Program and the [facility] Kidney Foundation literature.Reference ranges:60 or greater: Bgmklk19-00 ( for 3 consecutive months): Chronic kidney disease 15 or less: Kidney failureVal[facility] HarlingenGlucose jswayvdtaky6199-53-46 02:40:00* Test Item Value Reference Range Interpretation Comments Glucose Level (test code = OOJ2896) 86 74-118 [facility]erum or plasma calcium measurement (mass/volume)2020-02-10 02:40:00* Test Item Value Reference Range Interpretation Comments Calcium Level (test code = 50367-6) 9.7 8.4-10.2 [facility] Hospitalerum or plasma total bilirubin measurement (mass/volume)2020-02-10 02:40:00* Test Item Value Reference Range Interpretation Comments Total Bilirubin (test code = 1975-2) 0.3 0.2-1.2 [facility]lingenFluoroscopic procedure less than one hour jousdley6031-22-59 02:40:00* Test Item Value Reference Range Interpretation Comments Aspartate Amino Transf (AST/SGOT) (test code = Aspartate Amino Transf (AST/SGOT)) 11 5-34 [facility] Hospitalerum or plasma alanine aminotransferase measurement (enzymatic activity/volume)2020-02-10 02:40:00* Test Item Value Reference Range Interpretation Comments Alanine Aminotransferase (ALT/SGPT) (test code = 1742-6) 9 0-55 [facility] Hospitalerum or plasma protein measurement (mass/volume)2020-02-10 02:40:00* Test Item Value Reference Range Interpretation Comments Total Protein (test code = 2885-2) 6.3 6.5-8.1 [facility] Hospitalerum or plasma albumin measurement (mass/volume)2020-02-10 02:40:00* Test Item Value Reference Range Interpretation Comments Albumin (test code = 1751-7) 3.6 3.5-5.0 [facility]enPlasma globulin measurement (mass/volume) 2020-02-10 02:40:00* Test Item Value Reference Range Interpretation Comments Globulin (test code = 89776-8) 2.7 2.3-3.5 [facility] Hospitalerum or plasma albumin/globulin mass jmwqt7431-09-64 02:40:00* Test Item Value Reference Range Interpretation Comments Albumin/Globulin Ratio (test code = 1759-0) 1.3 0.8-2.0 [facility] Hospitalerum or plasma alkaline phosphatase measurement (enzymatic activity/volume)2020-02-10 02:40:00* Test Item Value Reference Range Interpretation Comments Alkaline Phosphatase (test code = 6768-6) 95 40-150 [facility]enBNP Fjv-eXqi9814-55-24 02:40:00* Test Item Value Reference Range Interpretation Comments B-Type Natriuretic Peptide (test code = 70555-6) 31.4 0-100 [facility]erum or plasma creatine kinase measurement (enzymatic activity/volume)2020-02-10 02:40:00* Test Item Value Reference Range Interpretation Comments Creatine Kinase (test code = 2157-6) 20 29-168 [facility] Hospitalerum or plasma creatine kinase MB measurement (mass/volume)2020-02-10 02:40:00* Test Item Value Reference Range Interpretation Comments Creatine Kinase MB (test code = 60973-6) 0.60 0-5.0 [facility]enTroponin I measurement by highly sensitive enzyme mqxjixgumws6348-55-48 02:40:00* Test Item Value Reference Range Interpretation Comments Troponin I (test code = 80707-6) < 0.001 0-0.300 [facility]enBlood leukocytes automated count (number/volume)2020-02-10 02:40:00* Test Item Value Reference Range Interpretation Comments White Blood Count (test code = 6690-2) 5.17 4.8-10.8 [facility]enBlwin[facility] erythrocytes automated count (number/volume)2020-02-10 02:40:00* Test Item Value Reference Range Interpretation Comments Red Blood Count (test code = 789-8) 3.79 3.6-5.1 [facility]enBlood hemoglobin measurement (moles/volume)2020-02-10 02:40:00* Test Item Value Reference Range Interpretation Comments Hemoglobin (test code = 49797-9) 10.8 12.0-16.0 [facility]lingenAutomated blood hematocrit (volume fraction)2020-02-10 02:40:00* Test Item Value Reference Range Interpretation Comments Hematocrit (test code = 4544-3) 33.4 34.2-44.1 [facility]lingenAutomated erythrocyte mean corpuscular tjfbog2364-00-24 02:40:00* Test Item Value Reference Range Interpretation Comments Mean Corpuscular Volume (test code = 787-2) 88.1 81-99 [facility]lingenAutomated erythrocyte mean corpuscular hemoglobin (mass per erythrocyte)2020-02-10 02:40:00* Test Item Value Reference Range Interpretation Comments Mean Corpuscular Hemoglobin (test code = 785-6) 28.5 28-32 [facility]lingenAutomated erythrocyte mean corpuscular hemoglobin concentration measurement (mass/volume)2020-02-10 02:40:00* Test Item Value Reference Range Interpretation Comments Mean Corpuscular Hemoglobin Concent (test code = 786-4) 32.3 31-35 [facility] HarlingenRDW QdnMh-Tuj5424-99-24 02:40:00* Test Item Value Reference Range Interpretation Comments Red Cell Distribution Width (test code = 94361-2) 12.5 11.7 -14.4 [facility]lingenAutomated blood platelet count (count/volume)2020-02-10 02:40:00* Test Item Value Reference Range Interpretation Comments Platelet Count (test code = 777-3) 43 140-360 Results repeated and called to SIMON JERONIMO at 0336 on 02/10/20 by Gil lowry. Read back and verified.[facility]enAutnovant health [facility] centered blood segmented neutrophil count as percentage of total mwnmnzqcuz0634-18-69 02:40:00* Test Item Value Reference Range Interpretation Comments Neutrophils (%) (Auto) (test code = 58845-0) 62.0 38.7-80.0 [facility]lingenAutomated blood lymphocyte count as percentage ot total hlvjzfnltw5353-46-33 02:40:00* Test Item Value Reference Range Interpretation Comments Lymphocytes (%) (Auto) (test code = 736-9) 26.7 18.0-39.1 [facility]enAutomated blood monocyte count as percentage of total bespxfnbbu7750-74-94 02:40:00* Test Item Value Reference Range Interpretation Comments Monocytes (%) (Auto) (test code = 5905-5) 6.4 4.4-11.3 [facility]enAutomated blood eosinophil count as percentage of total bgdwwsmbix0829-29-26 02:40:00* Test Item Value Reference Range Interpretation Comments Eosinophils (%) (Auto) (test code = 713-8) 4.1 0.0-6.0 [facility]enAutomated blood basophil count as percentage of total jpclnemifc0700-56-46 02:40:00* Test Item Value Reference Range Interpretation Comments Basophils (%) (Auto) (test code = 706-2) 0.6 0.0-1.0 [facility]enFluoroscopic procedure less than one hour zetuaxjw1500-75-52 02:40:00* Test Item Value Reference Range Interpretation Comments IM GRANULOCYTES % (test code = IM GRANULOCYTES %) 0.2 0.0- 1.0 [facility]enAutomated blood neutrophil count 2020-02-10 02:40:00* Test Item Value Reference Range Interpretation Comments Neutrophils # (Auto) (test code = 751-8) 3.2 2.1-6.9 [facility]enBlood lymphocytes count (number/volume) 2020-02-10 02:40:00* Test Item Value Reference Range Interpretation Comments Lymphocytes # (Auto) (test code = 12865-9) 1.4 1.0-3.2 [facility]enBlood monocytes automated count (number/volume)2020-02-10 02:40:00* Test Item Value Reference Range Interpretation Comments Monocytes # (Auto) (test code = 742-7) 0.3 0.2-0.8 [facility]enAutomated blood eosinophil count 2020-02-10 02:40:00* Test Item Value Reference Range Interpretation Comments Eosinophils # (Auto) (test code = 711-2) 0.2 0.0-0.4 [facility]enAutomated blood basophil count (count/volume)2020-02-10 02:40:00* Test Item Value Reference Range Interpretation Comments Basophils # (Auto) (test code = 704-7) 0.0 0.0-0.1 [facility]lingenFluoroscopic procedure less than one hour ujdqjrqf4905-37-15 02:40:00* Test Item Value Reference Range Interpretation Comments Absolute Immature Granulocyte (auto (melina t code = Absolute Immature Granulocyte (auto) 0.01 0-0.1 [facility]enBlood platelets count by estimate (number/volume)2020-02-10 02:40:00* Test Item Value Reference Range Interpretation Comments Platelet Estimate (test code = 34023-5) MARKEDLY DECREASED [facility] HarlingenPlatelet nghajlahjv0036-09-19 02:40:00* Test Item Value Reference Range Interpretation Comments Platelet Morphology Comment (test code = 30053-0) FEW LARGE [facility] HarlingenRBC qtzkljtbcw1188-85-19 02:40:00* Test Item Value Reference Range Interpretation Comments Red Cell Morphology Comment (test code = 6742-1) NORMAL [facility]er[facility] plasma sodium measurement (moles/volume)2020-02-10 02:40:00* Test Item Value Reference Range Interpretation Comments Sodium Level (test code = 2951-2) 141 136-145 [facility]er[facility] plasma potassium measurement (moles/volume)2020-02-10 02:40:00* Test Item Value Reference Range Interpretation Comments Potassium Level (test code = 2823-3) 3.7 3.5-5.1 [facility]er[facility] or plasma chloride measurement (moles/volume)2020-02-10 02:40:00* Test Item Value Reference Range Interpretation Comments Chloride Level (test code = 2075-0) 109 98-107 [facility]er[facility] or plasma carbon dioxide, total measurement (moles/volume)2020-02-10 02:40:00* Test Item Value Reference Range Interpretation Comments Carbon Dioxide Level (test code = 2028-9) 21 22-29 [facility]er[facility] or plasma anion rjl9562-55-92 02:40:00* Test Item Value Reference Range Interpretation Comments Anion Gap (test code = 99661-0) 14.7 8-16 [facility]er[facility] plasma urea nitrogen measurement (mass/volume)2020-02-10 02:40:00* Test Item Value Reference Range Interpretation Comments Blood Urea Nitrogen (test code = 3094-0) 22 7-26 [facility]er[facility] or plasma creatinine measurement (mass/volume)2020-02-10 02:40:00* Test Item Value Reference Range Interpretation Comments Creatinine (test code = 2160-0) 0.71 0.57-1.11 [facility] Hospitalerum or plasma urea nitrogen/creatinine mass vjbzv5177-13-59 02:40:00* Test Item Value Reference Range Interpretation Comments BUN/Creatinine Ratio (test code = 3097-3) 31 6-25 [facility]enEstimated glomerular filtration rate (GFR) iwvpfrmcroktn3604-79-90 02:40:00* Test Item Value Reference Range Interpretation Comments Estimat Glomerular Filtration Rate (test code = 236607653) > 60 >60 Ranges were taken from the National Kidney Disease Education Program and the [facility]al Kidney Foundation literature.Reference ranges:60 or greater: Hdohyl05-14 ( for 3 consecutive months): Chronic kidney disease 15 or less: Kidney failureVal[facility] – HarlingenGlucose vtgovconuht1923-66-02 02:40:00* Test Item Value Reference Range Interpretation Comments Glucose Level (test code = USG7719) 86 74-118 [facility]er[facility] plasma calcium measurement (mass/volume)2020-02-10 02:40:00* Test Item Value Reference Range Interpretation Comments Calcium Level (test code = 69257-5) 9.7 8.4-10.2 [facility] Hospitalerum or plasma total bilirubin measurement (mass/volume)2020-02-10 02:40:00* Test Item Value Reference Range Interpretation Comments Total Bilirubin (test code = 1975-2) 0.3 0.2-1.2 [facility]enFluoroscopic procedure less than one hour euqndplc9062-14-69 02:40:00* Test Item Value Reference Range Interpretation Comments Aspartate Amino Transf (AST/SGOT) (test code = Aspartate Amino Transf (AST/SGOT)) 11 5-34 [facility] Hospitalerum or plasma alanine aminotransferase measurement (enzymatic activity/volume)2020-02-10 02:40:00* Test Item Value Reference Range Interpretation Comments Alanine Aminotransferase (ALT/SGPT) (test code = 1742-6) 9 0-55 [facility]er[facility] or plasma protein measurement (mass/volume)2020-02-10 02:40:00* Test Item Value Reference Range Interpretation Comments Total Protein (test code = 2885-2) 6.3 6.5-8.1 [facility] Hospitalerum or plasma albumin measurement (mass/volume)2020-02-10 02:40:00* Test Item Value Reference Range Interpretation Comments Albumin (test code = 1751-7) 3.6 3.5-5.0 [facility]enPlasma globulin measurement (mass/volume) 2020-02-10 02:40:00* Test Item Value Reference Range Interpretation Comments Globulin (test code = 43486-2) 2.7 2.3-3.5 [facility]erum or plasma albumin/globulin mass dizes4460-30-66 02:40:00* Test Item Value Reference Range Interpretation Comments Albumin/Globulin Ratio (test code = 1759-0) 1.3 0.8-2.0 [facility] Hospitalerum or plasma alkaline phosphatase measurement (enzymatic activity/volume)2020-02-10 02:40:00* Test Item Value Reference Range Interpretation Comments Alkaline Phosphatase (test code = 6768-6) 95 40-150 [facility]enBNP Dzk-mTmg8036-66-24 02:40:00* Test Item Value Reference Range Interpretation Comments B-Type Natriuretic Peptide (test code = 10503-4) 31.4 0-100 [facility]erum or plasma creatine kinase measurement (enzymatic activity/volume)2020-02-10 02:40:00* Test Item Value Reference Range Interpretation Comments Creatine Kinase (test code = 2157-6) 20 29-168 [facility] Hospitalerum or plasma creatine kinase MB measurement (mass/volume)2020-02-10 02:40:00* Test Item Value Reference Range Interpretation Comments Creatine Kinase MB (test code = 88106-1) 0.60 0-5.0 [facility]enTroponin I measurement by highly sensitive enzyme urcynzqnuuk9840-43-87 02:40:00* Test Item Value Reference Range Interpretation Comments Troponin I (test code = 17024-8) < 0.001 0-0.300 [facility]enArterial Blood gI1734-07-54 16:55:00* Test Item Value Reference Range Interpretation Comments Arterial Blood pH (test code = 2744-1) 7.44 7.31-7.41 [facility] [facility] Partial Pressure CO2 2019-11-19 16:55:00* Test Item Value Reference Range Interpretation Comments Arterial Blood Partial Pressure CO2 (test code = 2018-) 40 41-51 L [facility] Partial Pressure O2 2019-11-19 16:55:00* Test Item Value Reference Range Interpretation Comments Arterial Blood Partial Pressure O2 (test code = 2019-04) 128 80-105 H [facility]enAr[facility] Blood HGQ42501-89-07 16:55:00* Test Item Value Reference Range Interpretation Comments Arterial Blood HCO3 (test code = 1960-4) 27 23-28 [facility]enAr[facility] Blood Base Kagwal3719-98-76 16:55:00* Test Item Value Reference Range Interpretation Comments Arterial Blood Base Excess (test code = 1925-7) 3.0 -2-3 [facility] Blood Oxygen Saturation 2019-11-19 16:55:00* Test Item Value Reference Range Interpretation Comments Arterial Blood Oxygen Saturation (test code = 2708-6) 99.0 95-98 H [facility]enFiO22020-03-02 16:55:00* Test Item Value Reference Range Interpretation Comments FiO2 (test code = FiO2) 40 [facility]enCreatine Kinase IS5451-02-34 16:48:00* Test Item Value Reference Range Interpretation Comments Creatine Kinase MB (test code = 78954-4) 1.10 0-5.0 [facility]enTroponin D5946-37-46 16:48:00* Test Item Value Reference Range Interpretation Comments Troponin I (test code = WVC1596) 0.002 0-0.300 [facility] Zzwwk7698-29-46 16:45:00* Test Item Value Reference Range Interpretation Comments Sodium Level (test code = 2951-2) 141 136-145 [facility]enPotassium Akawu1197-97-04 16:45:00* Test Item Value Reference Range Interpretation Comments Potassium Level (test code = 2823-3) 4.5 3.5-5.1 [facility]enChloride Iblmo4897-50-16 16:45:00* Test Item Value Reference Range Interpretation Comments Chloride Level (test code = 2075-0) 105 98-107 [facility] [place]enCarbon Dioxide Lhjrj9317-15-80 16:45:00* Test Item Value Reference Range Interpretation Comments Carbon Dioxide Level (test code = 2028-9) 28 22-29 [facility]enAnion Nsi2757-05-43 16:45:00* Test Item Value Reference Range Interpretation Comments Anion Gap (test code = 53229-5) 12.5 8-16 [facility] [place]enBlood Urea Apxsieln6211-30-00 16:45:00* Test Item Value Reference Range Interpretation Comments Blood Urea Nitrogen (test code = 3094-0) 14 7-26 [facility]enCreatinine2020-03-02 16:45:00* Test Item Value Reference Range Interpretation Comments Creatinine (test code = 2160-0) 0.82 0.57-1.11 [facility]enBUN/Creatinine Zzkiz5758-05-20 16:45:00* Test Item Value Reference Range Interpretation Comments BUN/Creatinine Ratio (test code = 3097-3) 17 6-25 [facility]enEstimat Glomerular Filtration Rate 2019-11-19 16:45:00* Test Item Value Reference Range Interpretation Comments Estimat Glomerular Filtration Rate (test code = 491608260) > 60 >60 Ranges were taken from the National Kidney Disease Education Program and the [facility] Kid[facility] Foundation literature.Reference ranges:60 or greater: Exrckb79-16 ( for 3 consecutive months): Chronic kidney disease 15 or less: Kidney failureVal[facility]enGlucose Kljtl9429-49-53 16:45:00* Test Item Value Reference Range Interpretation Comments Glucose Level (test code = BGP0411) 93 74-118 [facility]enCalcium Xzkat2340-72-49 16:45:00* Test Item Value Reference Range Interpretation Comments Calcium Level (test code = 88515-7) 10.4 8.4-10.2 H [facility]enTotal Adepixzvi7781-40-89 16:45:00* Test Item Value Reference Range Interpretation Comments Total Bilirubin (test code = 1975-2) 0.4 0.2-1.2 [facility]enAspartate Amino Transf (AST/SGOT) 2019-11-19 16:45:00* Test Item Value Reference Range Interpretation Comments Aspartate Amino Transf (AST/SGOT) (test code = Aspartate Amino Transf (AST/SGOT)) 17 5-34 [facility]enAlanine Aminotransferase (ALT/SGPT) 2019-11-19 16:45:00* Test Item Value Reference Range Interpretation Comments Alanine Aminotransferase (ALT/SGPT) (test code = 1742-6) 13 0-55 [facility]enTotal Knwnnwz2681-76-57 16:45:00* Test Item Value Reference Range Interpretation Comments Total Protein (test code = 2885-2) 7.4 6.5-8.1 [facility] [place]enAlbumin2020-03-02 16:45:00* Test Item Value Reference Range Interpretation Comments Albumin (test code = 1751-7) 4.1 3.5-5.0 [facility]enGlobulin2020-03-02 16:45:00* Test Item Value Reference Range Interpretation Comments Globulin (test code = 01216-1) 3.3 2.3-3.5 [facility]enAlbumin/Globulin Cntcd5941-54-74 16:45:00 * Test Item Value Reference Range Interpretation Comments Albumin/Globulin Ratio (test code = 1759-0) 1.2 0.8-2.0 [facility]enAlkaline Tamovrfuucf7749-02-55 16:45:00* Test Item Value Reference Range Interpretation Comments Alkaline Phosphatase (test code = 6768-6) 115 40-150 [facility]enCreatine Uzivzx8243-29-20 16:45:00* Test Item Value Reference Range Interpretation Comments Creatine Kinase (test code = 2157-6) 38 29-168 [facility]enLactic Acid Xlxzz2213-63-02 16:38:00* Test Item Value Reference Range Interpretation Comments Lactic Acid Level (test code = Lactic Acid Level) 0.7 0.5- 2.0 [facility] [place]enWhite Blood Rcfvz9476-51-24 16:29:00* Test Item Value Reference Range Interpretation Comments White Blood Count (test code = 6690-2) 6.40 4.8-10.8 [facility] [place]enRed Blood Kpdif7701-59-49 16:29:00* Test Item Value Reference Range Interpretation Comments Red Blood Count (test code = 789-8) 4.22 3.6-5.1 [facility]enHemoglobin2020-03-02 16:29:00* Test Item Value Reference Range Interpretation Comments Hemoglobin (test code = 20413-7) 12.2 12.0-16.0 [facility]enHematocrit2020-03-02 16:29:00* Test Item Value Reference Range Interpretation Comments Hematocrit (test code = 4544-3) 38.3 34.2-44.1 [facility] [place]enMean Corpuscular Xrpuop7364-00-02 16:29:00* Test Item Value Reference Range Interpretation Comments Mean Corpuscular Volume (test code = 787-2) 90.8 81-99 [facility]enMean Corpuscular Ihqkcbogxj4069-38-11 16:29:00* Test Item Value Reference Range Interpretation Comments Mean Corpuscular Hemoglobin (test code = 785-6) 28.9 28-32 [facility] Hemoglobin Concent 2019-11-19 16:29:00* Test Item Value Reference Range Interpretation Comments Mean Corpuscular Hemoglobin Concent (test code = 786-4) 31.9 31-35 [facility] [place]enRed Cell Distribution Nciug4716-04-89 16:29:00* Test Item Value Reference Range Interpretation Comments Red Cell Distribution Width (test code = 33602-0) 12.8 11.7 -14.4 [facility] [place]enPlatelet Qtcgw3569-84-72 16:29:00* Test Item Value Reference Range Interpretation Comments Platelet Count (test code = 777-3) 62 140-360 L NO CLOT DETECTED [facility]enNeutrophils (%) (Auto) 2019-11-19 16:29:00* Test Item Value Reference Range Interpretation Comments Neutrophils (%) (Auto) (test code = 91260-4) 69.1 38.7-80.0 [facility]enLymphocytes (%) (Auto)2019-11-19 16:29:00 * Test Item Value Reference Range Interpretation Comments Lymphocytes (%) (Auto) (test code = 736-9) 21.1 18.0-39.1 [facility]enMonocytes (%) (Auto)2019-11-19 16:29:00* Test Item Value Reference Range Interpretation Comments Monocytes (%) (Auto) (test code = 5905-5) 5.6 4.4-11.3 [facility]enEosinophils (%) (Auto)2019-11-19 16:29:00 * Test Item Value Reference Range Interpretation Comments Eosinophils (%) (Auto) (test code = 713-8) 3.6 0.0-6.0 [facility]enBasophils (%) (Auto)2019-11-19 16:29:00* Test Item Value Reference Range Interpretation Comments Basophils (%) (Auto) (test code = 706-2) 0.3 0.0-1.0 [facility] [place]enIM GRANULOCYTES %2019-11-19 16:29:00* Test Item Value Reference Range Interpretation Comments IM GRANULOCYTES % (test code = IM GRANULOCYTES %) 0.3 0.0- 1.0 [facility]enNeutrophils # (Auto)2019-11-19 16:29:00* Test Item Value Reference Range Interpretation Comments Neutrophils # (Auto) (test code = 751-8) 4.4 2.1-6.9 [facility]enLymphocytes # (Auto)2019-11-19 16:29:00* Test Item Value Reference Range Interpretation Comments Lymphocytes # (Auto) (test code = 43415-2) 1.4 1.0-3.2 [facility]enMonocytes # (Auto)2019-11-19 16:29:00* Test Item Value Reference Range Interpretation Comments Monocytes # (Auto) (test code = 742-7) 0.4 0.2-0.8 [facility]enEosinophils # (Auto)2019-11-19 16:29:00* Test Item Value Reference Range Interpretation Comments Eosinophils # (Auto) (test code = 711-2) 0.2 0.0-0.4 [facility]enBasophils # (Auto)2019-11-19 16:29:00* Test Item Value Reference Range Interpretation Comments Basophils # (Auto) (test code = 704-7) 0.0 0.0-0.1 [facility]enAbsolute Immature Granulocyte (auto 2019-11-19 16:29:00* Test Item Value Reference Range Interpretation Comments Absolute Immature Granulocyte (auto (melina t code = Absolute Immature Granulocyte (auto) 0.02 0-0.1 [facility]enCHEST SINGLE (PORTABLE)2019-11-19 15:49:00 [place] [address] Patient Name: MOJGAN CUMMINGS MR #: [id number] : 1950 Age/Sex: 69/F Req #: [id number] Adm Physician: Ordered by: CAITLYN ROMERO DO Report #: [id number] Location: ER Room/Bed: Procedure: [id number] DX/CH EST SINGLE (PORTABLE) Exam Date: Exam [...] By: BAMBI on 11/19/191549 COPY TO: CAITLYN ROMEOR DO Arterial blood pH rjbiheivqqj2637-12-95 15:45:00* Test Item Value Reference Range Interpretation Comments Arterial Blood pH (test code = 2744-1) 7.44 7.31-7.41 [facility]enpCO2 PiqW1312-14-31 15:45:00* Test Item Value Reference Range Interpretation Comments Arterial Blood Partial Pressure CO2 (test code = 2018-8) 40 41-51 [facility]enpCO2 VuzG1697-17-11 15:45:00* Test Item Value Reference Range Interpretation Comments Arterial Blood Partial Pressure O2 (test code = 2018-8) 128 80-105 [facility]enArterial blood bicarbonate measurement (moles/volume)2019-11-19 15:45:00* Test Item Value Reference Range Interpretation Comments Arterial Blood HCO3 (test code = 1960-4) 27 23-28 [facility]enArterial blood base excess by calculation 2019-11-19 15:45:00* Test Item Value Reference Range Interpretation Comments Arterial Blood Base Excess (test code = 1925-7) 3.0 -2-3 [facility]enArterial blood oxygen saturation wnfutpyvnsf1987-91-38 15:45:00* Test Item Value Reference Range Interpretation Comments Arterial Blood Oxygen Saturation (test code = 2708-6) 99.0 95-98 [facility]enFluoroscopic procedure less than one hour lyslxtpi5781-88-71 15:45:00* Test Item Value Reference Range Interpretation Comments FiO2 (test code = FiO2) 40 [facility]enArterial blood pH zpdelucqfus5047-58-24 15:45:00* Test Item Value Reference Range Interpretation Comments Arterial Blood pH (test code = 2744-1) 7.44 7.31-7.41 [facility]enpCO2 DqjH2389-22-40 15:45:00* Test Item Value Reference Range Interpretation Comments Arterial Blood Partial Pressure CO2 (test code = 2019-04) 40 41-51 [facility]enpCO2 YqwT2172-58-09 15:45:00* Test Item Value Reference Range Interpretation Comments Arterial Blood Partial Pressure O2 (test code = 2019-04) 128 80-105 [facility]enArterial blood bicarbonate measurement (moles/volume)2019-11-19 15:45:00* Test Item Value Reference Range Interpretation Comments Arterial Blood HCO3 (test code = 1960-4) 27 23-28 [facility]enArterial blood base excess by calculation 2019-11-19 15:45:00* Test Item Value Reference Range Interpretation Comments Arterial Blood Base Excess (test code = 1925-7) 3.0 -2-3 [facility]enArterial blood oxygen saturation yfkoevzbjiw4223-96-30 15:45:00* Test Item Value Reference Range Interpretation Comments Arterial Blood Oxygen Saturation (test code = 2708-6) 99.0 95-98 [facility]enFluoroscopic procedure less than one hour taugbqyk1202-27-24 15:45:00* Test Item Value Reference Range Interpretation Comments FiO2 (test code = FiO2) 40 [facility]enArterial blood pH hshawoyubke9972-58-84 15:45:00* Test Item Value Reference Range Interpretation Comments Arterial Blood pH (test code = 2744-1) 7.44 7.31-7.41 [facility]enpCO2 UoeQ3661-53-14 15:45:00* Test Item Value Reference Range Interpretation Comments Arterial Blood Partial Pressure CO2 (test code = 2019-04) 40 41-51 [facility]enpCO2 QiqN4342-43-74 15:45:00* Test Item Value Reference Range Interpretation Comments Arterial Blood Partial Pressure O2 (test code = 2019-8) 128 80-105 [facility]enArterial blood bicarbonate measurement (moles/volume)2019-11-19 15:45:00* Test Item Value Reference Range Interpretation Comments Arterial Blood HCO3 (test code = 1960-4) 27 23-28 [facility]enArterial blood base excess by calculation 2019-11-19 15:45:00* Test Item Value Reference Range Interpretation Comments Arterial Blood Base Excess (test code = 1925-7) 3.0 -2-3 [facility]enArterial blood oxygen saturation mpiukuibqxk3391-15-77 15:45:00* Test Item Value Reference Range Interpretation Comments Arterial Blood Oxygen Saturation (test code = 2708-6) 99.0 95-98 [facility]enFluoroscopic procedure less than one hour chvfuuoq9656-05-53 15:45:00* Test Item Value Reference Range Interpretation Comments FiO2 (test code = FiO2) 40 [facility]enFluoroscopic procedure less than one hour czqzzoxa6905-94-23 15:04:00* Test Item Value Reference Range Interpretation Comments Lactic Acid Level (test code = Lactic Acid Level) 0.7 0.5- 2.0 [facility]enBlood rlopprb4827-74-08 15:04:00* Test Item Value Reference Range Interpretation Comments Blood Culture (test code = 03669989) NO GROWTH AFTER 5 DAYS, FINAL REPORT [facility]enBacterial blood epyhzmi5637-86-30 15:04:00* Test Item Value Reference Range Interpretation Comments Blood Culture (test code = 600-7) GRAM POSITIVE BACILLUS 1 [facility]enFluoroscopic procedure less than one hour vnyvbdxr9613-75-48 15:04:00* Test Item Value Reference Range Interpretation Comments Lactic Acid Level (test code = Lactic Acid Level) 0.7 0.5- 2.0 [facility]enBlood vjsebyx6583-84-87 15:04:00* Test Item Value Reference Range Interpretation Comments Blood Culture (test code = 09850810) NO GROWTH AFTER 5 DAYS, FINAL REPORT [facility]enBacterial blood vljzgxx4136-29-13 15:04:00* Test Item Value Reference Range Interpretation Comments Blood Culture (test code = 600-7) GRAM POSITIVE BACILLUS 1 [facility]enFluoroscopic procedure less than one hour xlehabgf1927-69-00 15:04:00* Test Item Value Reference Range Interpretation Comments Lactic Acid Level (test code = Lactic Acid Level) 0.7 0.5- 2.0 [facility]enBlood gkwgfgp8421-08-57 15:04:00* Test Item Value Reference Range Interpretation Comments Blood Culture (test code = 37893162) NO GROWTH AFTER 5 DAYS, FINAL REPORT [facility] Har[facility]enBacterial blood atcllia7132-44-71 15:04:00* Test Item Value Reference Range Interpretation Comments Blood Culture (test code = 600-7) GRAM POSITIVE BACILLUS 1 [facility]enB-TYPE NATRIURETIC QPCLYVJ5631-88-52 08:12:00* Test Item Value Reference Range Interpretation Comments B-TYPE NATRIURETIC PEPTIDE (test code = BNP) 59.8 pgram/mL 0-100 N BASIC METABOLIC CXSGX5056-25-29 07:26:00* Test Item Value Reference Range Interpretation [...] code = CA) 10.2 mg/dL 8.5-10.1 H MTRGYIYC-H2722-11-24 07:26:00* Test Item Value Reference Range Interpretation Comments TROPONIN-I (test code = TROPI) <0.015 ng/mL 0-0.045 N CBC W/O ULZI4525-58-90 07:18:00* Test Item Value Reference Range Interpretation [...] 28 K/mm3 150-450 LL Results called to [id number] by AUDREY 10/12/19 0718Critical results verified and read back by Nurse? Y MEAN PLATELET VOLUME (test code = MPV) TEST NOT PERFORMED fL 6.7-11 .0 BASIC METABOLIC BMTEA0221-76-28 07:16:00* Test Item Value Reference Range Interpretation [...] CALCIUM (test code = CA) mg/dL 8.5-10.1 VWXEDBVE-A6696-66-24 07:16:00* Test Item Value Reference Range Interpretation Comments TROPONIN-I (test code = TROPI) ng/mL 0-0.045 - XR CHEST 1 M2624-94-51 07:05:00 FAX: Esau Weaver DO [place]: [address] St: REG Name: MOJGAN SAUCEDO [facility] : [birth year] Age/S: 69/F [address] [facility] Unit #: [id number] Loc: [place] [address] Phys: Esau Weaver DO Acct: [id number] Dis Date: Status: REG ER PHONE #: [phone] Exam Date: 10/12/2019526 FAX #: [phone] Reason: Shortness of Breath EXAMS: CPT CODE: [id number] XR CHEST 1 V 46943 HISTORY: Shortness of breath. COMPARISON: August 16, 2019. Location: . No acute infiltrates, effusion or congestion is noted. Tracheostomy tu be is unchanged. Mild cardiomegaly DJD of both shoulder joints.. IMPRESSION: No acute infiltrates, effusion or congestion. at 0705 Reported and signed by: Clem Grissom M.D. CC: Esau Weaver DO Technolog ist: OCTAVIO VASQUEZ JR Trnscrd Date/Time/By : 10/12/2019 (07) : By: [email or web address] Orig Print D/T: S: 10/12/2019 (070 8) PAGE 1 Signed Report Platelet Fmnagtir6796-42-10 19:33:00* Test Item Value Reference Range Interpretation Comments Platelet Estimate (test code = 41741-1) ADEQUATE [facility]enPlatelet Morphology Gfkyepy6219-87-48 19:33:00* Test Item Value Reference Range Interpretation Comments Platelet Morphology Comment (test code = 05415-6) FEW GIANT [facility]enHypochromasia2020-01-07 19:33:00* Test Item Value Reference Range Interpretation Comments Hypochromasia (test code = 728-6) SLIGHT [facility]enRed Cell Morphology Uxdvtvr2484-65-32 19:33:00* Test Item Value Reference Range Interpretation Comments Red Cell Morphology Comment (test code = 6742-1) NORMAL [facility]enB-Type Natriuretic Rtjctiw9701-01-54 13:04:00* Test Item Value Reference Range Interpretation Comments B-Type Natriuretic Peptide (test code = 28712-8) 54.1 0-100 [facility]enB-Type Natriuretic Rofuczf6509-81-67 13:04:00* Test Item Value Reference Range Interpretation Comments B-Type Natriuretic Peptide (test code = 75098-6) 54.1 0-100 [facility]enCHEST SINGLE (PORTABLE)2019-09-25 12:52:00 [facility] [address] [place] [address] Patient Name: MOJGAN CUMMINGS MR #: [id number] : 1950 Age/Sex: 69/F Req #: [id number] Adm Physician: Ordered by: DONOVAN MENJIVAR MD Report #: [id number] Location: Room/Bed: Procedure: [id number] DX/CH EST SINGLE (PORTABLE) Exam Date: 09/25/19 [...] Level (test code = 2951-2) 138 136-145 [facility]enPotassium Xcycg2063-04-55 12:28:00* Test Item Value Reference Range Interpretation Comments Potassium Level (test code = 2823-3) 3.9 3.5-5.1 [facility]enChloride Dbypx3078-01-57 12:28:00* Test Item Value Reference Range Interpretation Comments Chloride Level (test code = 2075-0) 104 98-107 [facility]enCarbon Dioxide Srmot9777-85-59 12:28:00* Test Item Value Reference Range Interpretation Comments Carbon Dioxide Level (test code = 2028-9) 26 22-29 [facility] HarlingenAnion Pfg0195-38-96 12:28:00* Test Item Value Reference Range Interpretation Comments Anion Gap (test code = 17184-8) 11.9 8-16 [facility]enBlood Urea Eszjysxa6428-71-42 12:28:00* Test Item Value Reference Range Interpretation Comments Blood Urea Nitrogen (test code = 3094-0) 14 7-26 [facility]enCreatinine2020-01-07 12:28:00* Test Item Value Reference Range Interpretation Comments Creatinine (test code = 2160-0) 0.71 0.57-1.11 [facility]enBUN/Creatinine Eyphj5844-74-80 12:28:00* Test Item Value Reference Range Interpretation Comments BUN/Creatinine Ratio (test code = 3097-3) 20 6- [facility] HarlingenEstimat Glomerular Filtration Rate 2019-09-25 12:28:00* Test Item Value Reference Range Interpretation Comments Estimat Glomerular Filtration Rate (test code = 622705990) > 60 >60 Ranges were taken from the National Kidney Disease Education Program and the [facility] Kid[facility] Foundation literature.Reference ranges:60 or greater: Bfyyrc93-26 ( for 3 consecutive months): Chronic kidney disease 15 or less: Kidney failureVal[facility] – HarlingenGlucose Qwwxb2156-72-15 12:28:00* Test Item Value Reference Range Interpretation Comments Glucose Level (test code = XTE0622) 87 74-118 [facility] HarlingenCalcium Hzaqp2633-76-55 12:28:00* Test Item Value Reference Range Interpretation Comments Calcium Level (test code = 27532-9) 9.8 8.4-10.2 [facility] Har[facility]enTotal Nugdfbntf4822-19-82 12:28:00* Test Item Value Reference Range Interpretation Comments Total Bilirubin (test code = 1975-2) 0.4 0.2-1.2 [facility]lingenAspartate Amino Transf (AST/SGOT) 2019-09-25 12:28:00* Test Item Value Reference Range Interpretation Comments Aspartate Amino Transf (AST/SGOT) (test code = Aspartate Amino Transf (AST/SGOT)) 14 5-34 [facility]enAlanine Aminotransferase (ALT/SGPT) 2019-09-25 12:28:00* Test Item Value Reference Range Interpretation Comments Alanine Aminotransferase (ALT/SGPT) (test code = 1742-6) 13 0-55 [facility] HarlingenTotal Spzkgfg0438-96-22 12:28:00* Test Item Value Reference Range Interpretation Comments Total Protein (test code = 2885-2) 6.2 6.5-8.1 L [facility]enAlbumin2020-01-07 12:28:00* Test Item Value Reference Range Interpretation Comments Albumin (test code = 1751-7) 3.5 3.5-5.0 [facility]enGlobulin2020-01-07 12:28:00* Test Item Value Reference Range Interpretation Comments Globulin (test code = 03200-4) 2.7 2.3-3.5 [facility]enAlbumin/Globulin Qvhfu9038-06-47 12:28:00 * Test Item Value Reference Range Interpretation Comments Albumin/Globulin Ratio (test code = 1759-0) 1.3 0.8-2.0 [facility]enAlkaline Isylspmlmqt2336-98-80 12:28:00* Test Item Value Reference Range Interpretation Comments Alkaline Phosphatase (test code = 6768-6) 107 40-150 [facility]enWhite Blood Rbnzy6793-90-53 12:27:00* Test Item Value Reference Range Interpretation Comments White Blood Count (test code = 6690-2) 5.74 4.8-10.8 [facility]enRed Blood Zksbd0457-79-12 12:27:00* Test Item Value Reference Range Interpretation Comments Red Blood Count (test code = 789-8) 3.49 3.6-5.1 L [facility]enHemoglobin2020-01[facility]07 12:27:00* Test Item Value Reference Range Interpretation Comments Hemoglobin (test code = 49985-8) 10.2 12.0-16.0 L [facility]enHematocrit2020-01-07 12:27:00* Test Item Value Reference Range Interpretation Comments Hematocrit (test code = 4544-3) 32.4 34.2-44.1 L [facility]enMean Corpuscular Viycgc0516-61-17 12:27:00* Test Item Value Reference Range Interpretation Comments Mean Corpuscular Volume (test code = 787-2) 92.8 81-99 [facility]enMean Corpuscular Ymvyiexder7511-06-48 12:27:00* Test Item Value Reference Range Interpretation Comments Mean Corpuscular Hemoglobin (test code = 785-6) 29.2 28-32 [facility]enMean Corpuscular Hemoglobin Concent 2019-09-25 12:27:00* Test Item Value Reference Range Interpretation Comments Mean Corpuscular Hemoglobin Concent (test code = 786-4) 31.5 31-35 [facility]enRed Cell Distribution Runfw0760-04-49 12:27:00* Test Item Value Reference Range Interpretation Comments Red Cell Distribution Width (test code = 08289-0) 13.0 11.7 -14.4 [facility]enPlatelet Ddeqh8408-85-13 12:27:00* Test Item Value Reference Range Interpretation Comments Platelet Count (test code = 777-3) 47 140-360 LL Results repeated and called to CHLOE PHIPPS at 1226 on 09/25/19 by Sherrie malone Read back and verified.[facility]enNeutrophils (%) (Auto)2019-09-25 12:27:00* Test Item Value Reference Range Interpretation Comments Neutrophils (%) (Auto) (test code = 96319-1) 67.0 38.7-80.0 [facility]enLymphocytes (%) (Auto)2019-09-25 12:27:00 * Test Item Value Reference Range Interpretation Comments Lymphocytes (%) (Auto) (test code = 736-9) 23.3 18.0-39.1 [facility]enMonocytes (%) (Auto)2019-09-25 12:27:00* Test Item Value Reference Range Interpretation Comments Monocytes (%) (Auto) (test code = 5905-5) 5.9 4.4-11.3 [facility]enEosinophils (%) (Auto)2019-09-25 12:27:00 * Test Item Value Reference Range Interpretation Comments Eosinophils (%) (Auto) (test code = 713-8) 3.0 0.0-6.0 [facility]enBasophils (%) (Auto)2019-09-25 12:27:00* Test Item Value Reference Range Interpretation Comments Basophils (%) (Auto) (test code = 706-2) 0.3 0.0-1.0 [facility]enIM GRANULOCYTES %2019-09-25 12:27:00* Test Item Value Reference Range Interpretation Comments IM GRANULOCYTES % (test code = IM GRANULOCYTES %) 0.5 0.0- 1.0 [facility]enNeutrophils # (Auto)2019-09-25 12:27:00* Test Item Value Reference Range Interpretation Comments Neutrophils # (Auto) (test code = 751-8) 3.8 2.1-6.9 [facility]enLymphocytes # (Auto)2019-09-25 12:27:00* Test Item Value Reference Range Interpretation Comments Lymphocytes # (Auto) (test code = 77136-1) 1.3 1.0-3.2 [facility]enMonocytes # (Auto)2019-09-25 12:27:00* Test Item Value Reference Range Interpretation Comments Monocytes # (Auto) (test code = 742-7) 0.3 0.2-0.8 [facility]enEosinophils # (Auto)2019-09-25 12:27:00* Test Item Value Reference Range Interpretation Comments Eosinophils # (Auto) (test code = 711-2) 0.2 0.0-0.4 [facility]enBasophils # (Auto)2019-09-25 12:27:00* Test Item Value Reference Range Interpretation Comments Basophils # (Auto) (test code = 704-7) 0.0 0.0-0.1 [facility]enAbsolute Immature Granulocyte (auto 2019-09-25 12:27:00* Test Item Value Reference Range Interpretation Comments Absolute Immature Granulocyte (auto (melina t code = Absolute Immature Granulocyte (auto) 0.03 0-0.1 [facility]enBlood platelets count by estimate (number/volume)2019-09-25 10:17:00* Test Item Value Reference Range Interpretation Comments Platelet Estimate (test code = 92696-8) ADEQUATE [facility] HarlingenPlatelet uxdjpyqqmd4296-62-32 10:17:00* Test Item Value Reference Range Interpretation Comments Platelet Morphology Comment (test code = 10988-7) FEW GIANT [facility]enBlood hypochromia detection by light scpaidaozs7224-66-57 10:17:00* Test Item Value Reference Range Interpretation Comments Hypochromasia (test code = 728-6) SLIGHT [facility]enRB olavvlijln3306-49-79 10:17:00* Test Item Value Reference Range Interpretation Comments Red Cell Morphology Comment (test code = 6742-1) NORMAL [facility] hypochromia detection by light npvywdmcrb4545-90-29 10:17:00* Test Item Value Reference Range Interpretation Comments Hypochromasia (test code = 728-6) SLIGHT [facility]enBl[facility] hypochromia detection by light obextkecbl6069-68-72 10:17:00* Test Item Value Reference Range Interpretation Comments Hypochromasia (test code = 728-6) SLIGHT [facility]enFolate2020-01-05 01:59:00* Test Item Value Reference Range Interpretation Comments Folate (test code = 2284-8) 18.4 >3.0 A serum folate concentration of less than 3.1 ng/mL isconsidered to represent cl inical deficiency.Performed at: - [employer] [id number] Director: Rashawn Green MD, Phone: [phone] – HarlingenFolate2020-01-05 01:59:00* Test Item Value Reference Range Interpretation Comments Folate (test code = 2284-8) 18.4 >3.0 A serum folate concentration of less than 3.1 ng/mL isconsidered to represent cl inical deficiency.Performed at: - [facility] [id number] Director: Rashawn Green MD, Phone: [phone] Medical Center – HarlingenVitamin B12 Dinas4520-82-00 12:13:00* Test Item Value Reference Range Interpretation Comments Vitamin B12 Level (test code = 54792-6) 329 213-816 [facility] Har[facility]enVitamin B12 Dhqqf9346-92-17 12:13:00* Test Item Value Reference Range Interpretation Comments Vitamin B12 Level (test code = 08670-7) 329 213-816 [facility] HarlingenVitamin B12 Oxrtq7352-05-04 12:13:00* Test Item Value Reference Range Interpretation Comments Vitamin B12 Level (test code = 14128-4) 329 213-[address] [facility] Ajxraax7811-98-71 11:30:00* Test Item Value Reference Range Interpretation Comments Bedside Glucose (test code = 68441-5) 134 70-120 H Meter ID: [id number] [facility] Glucose 2019-09-21 11:30:00* Test Item Value Reference Range Interpretation Comments Bedside Glucose (test code = 39112-0) 134 70-120 H Meter ID: [id number] [facility] Glucose 2019-09-21 11:30:00* Test Item Value Reference Range Interpretation Comments Bedside Glucose (test code = 32696-4) 134 70-120 H Meter ID: [id number] [facility] Medical Center – HarlingenFerritin2020-01-03 11:16:00* Test Item Value Reference Range Interpretation Comments Ferritin (test code = 2276-4) 776.53 4.63-204.00 H [facility]enFerritin2020-01-03 11:16:00* Test Item Value Reference Range Interpretation Comments Ferritin (test code = 2276-4) 776.53 4.63-204.00 H [facility]enFerritin2020-01-03 11:16:00* Test Item Value Reference Range Interpretation Comments Ferritin (test code = 2276-4) 776.53 4.63-204.00 H [facility] HarlingenMODIFIED BA. ZCMCHVK5880-69-32 10:40:[address] [place] [address] Patient Name: MOJGAN CUMMINGS MR #: [id number] : 8 Age/Sex: 69/F Req #: [id number] Adm Physician: ILAN STEIN MD Ordered by: TRINIDAD WALKER NP Report #: [id number] Location: MED/SURG3 Room/Bed: [facility] Procedure: [id number] DX/ MODIFIED BA. SWALLOW Exam Date: 09/21/19 Exam Time: 844 REPORT STATUS: Signed PROCE DURE: X-RAY MODIFIED [...] isconsidered to represent cl inical deficiency.Performed at: [address] [id number] Director: Rashawn Green MD, Phone: [phone] Methodist Clear Lake Hospitalerum or plasma folate measurement (mass/volume) 2019-09-21 09:24:00* Test Item Value Reference Range Interpretation Comments Folate (test code = 2284-8) 18.4 >3.0 A serum folate concentration of less than 3.1 ng/mL isconsidered to represent cl inical deficiency.Performed at: HD - [facility] [address] [id number] Director: Rashawn Green MD, Phone: [phone] Methodist Clear Lake Hospitalerum or plasma folate measurement (mass/volume) 2019-09-21 09:24:00* Test Item Value Reference Range Interpretation Comments Folate (test code = 2284-8) 18.4 >3.0 A serum folate concentration of less than 3.1 ng/mL isconsidered to represent cl inical deficiency.Performed at: HD - [facility] [address] [id number] Director: Rashawn Green MD, Phone: [phone] Methodist Clear Lake Hospitalodium Dxnti2897-71-49 06:52:00* Test Item Value Reference Range Interpretation Comments Sodium Level (test code = 2951-2) 138 136-145 [facility]enPotassium Fknxz0737-42-46 06:52:00* Test Item Value Reference Range Interpretation Comments Potassium Level (test code = 2823-3) 3.9 3.5-5.1 [facility]enChloride Oydwo0028-73-24 06:52:00* Test Item Value Reference Range Interpretation Comments Chloride Level (test code = 2075-0) 104 98-107 [facility] HarlingenCarbon Dioxide Gjcpv1996-04-23 06:52:00* Test Item Value Reference Range Interpretation Comments Carbon Dioxide Level (test code = 2028-9) 25 22-29 [facility] Har[facility]enAnion Zbp5891-62-09 06:52:00* Test Item Value Reference Range Interpretation Comments Anion Gap (test code = 47499-3) 12.9 8-16 [facility]enBlood Urea Kzudgees4550-59-12 06:52:00* Test Item Value Reference Range Interpretation Comments Blood Urea Nitrogen (test code = 3094-0) 16 7-26 [facility]enCreatinine2020-01-03 06:52:00* Test Item Value Reference Range Interpretation Comments Creatinine (test code = 2160-0) 0.82 0.57-1.11 [facility]enBUN/Creatinine Lphll1772-90-00 06:52:00* Test Item Value Reference Range Interpretation Comments BUN/Creatinine Ratio (test code = 3097-3) 20 6-25 [facility] HarlingenEstimat Glomerular Filtration Rate 2019-09-21 06:52:00* Test Item Value Reference Range Interpretation Comments Estimat Glomerular Filtration Rate (test code = 554841592) > 60 >60 Ranges were taken from the National Kidney Disease Education Program and the [facility] Hospitalal Kidney Foundation literature.Reference ranges:60 or greater: Gqwlvc01-13 ( for 3 consecutive months): Chronic kidney disease 15 or less: Kidney failureValley Baptist Medical Center – HarlingenGlucose Sdflh5110-06-62 06:52:00* Test Item Value Reference Range Interpretation Comments Glucose Level (test code = RXX6647) 89 74-118 [facility] HarlingenCalcium Qvlzo2730-47-50 06:52:00* Test Item Value Reference Range Interpretation Comments Calcium Level (test code = 71107-5) 9.6 8.4-10.2 [facility] HarlingenTotal Bqcvopjmw4418-15-01 06:52:00* Test Item Value Reference Range Interpretation Comments Total Bilirubin (test code = 1975-2) 0.3 0.2-1.2 [facility] HarlingenAspartate Amino Transf (AST/SGOT) 2019-09-21 06:52:00* Test Item Value Reference Range Interpretation Comments Aspartate Amino Transf (AST/SGOT) (test code = Aspartate Amino Transf (AST/SGOT)) 13 5-34 [facility] HarlingenAlanine Aminotransferase (ALT/SGPT) 2019-09-21 06:52:00* Test Item Value Reference Range Interpretation Comments Alanine Aminotransferase (ALT/SGPT) (test code = 1742-6) 9 0-55 [facility] HarlingenTotal Vkpcbjo2888-84-12 06:52:00* Test Item Value Reference Range Interpretation Comments Total Protein (test code = 2885-2) 6.7 6.5-8.1 [facility] HarlingenAlbumin2020-01-03 06:52:00* Test Item Value Reference Range Interpretation Comments Albumin (test code = 1751-7) 3.5 3.5-5.0 [facility]enGlobulin2020-01-03 06:52:00* Test Item Value Reference Range Interpretation Comments Globulin (test code = 50216-5) 3.2 2.3-3.5 [facility]lingenAlbumin/Globulin Lluar7028-52-47 06:52:00 * Test Item Value Reference Range Interpretation Comments Albumin/Globulin Ratio (test code = 1759-0) 1.1 0.8-2.0 [facility] HarlingenAlkaline Hfpwfhpjlod5478-78-92 06:52:00* Test Item Value Reference Range Interpretation Comments Alkaline Phosphatase (test code = 6768-6) 119 40-150 [facility] HarlingenMagnesium Fujzw0768-85-00 06:38:00* Test Item Value Reference Range Interpretation Comments Magnesium Level (test code = 00780-6) 1.8 1.3-2.1 [facility] HarlingenMagnesium Eabbb7041-62-76 06:38:00* Test Item Value Reference Range Interpretation Comments Magnesium Level (test code = 04077-5) 1.8 1.3-2.1 [facility] HarlingenMagnesium Nngpo4245-58-45 06:38:00* Test Item Value Reference Range Interpretation Comments Magnesium Level (test code = 77477-4) 1.8 1.3-2.1 [facility] Har[facility]enWhite Blood Zhdhx7451-68-82 06:35:00* Test Item Value Reference Range Interpretation Comments White Blood Count (test code = 6690-2) 5.32 4.8-10.8 [facility] HarlingenRed Blood Rxdfc6827-95-65 06:35:00* Test Item Value Reference Range Interpretation Comments Red Blood Count (test code = 789-8) 3.77 3.6-5.1 [facility]enHemoglobin2020-01-03 06:35:00* Test Item Value Reference Range Interpretation Comments Hemoglobin (test code = 95608-4) 10.9 12.0-16.0 L [facility]enHematocrit2020-01-03 06:35:00* Test Item Value Reference Range Interpretation Comments Hematocrit (test code = 4544-3) 34.2 34.2-44.1 [facility]enMean Corpuscular Zwpthd8023-67-31 06:35:00* Test Item Value Reference Range Interpretation Comments Mean Corpuscular Volume (test code = 787-2) 90.7 81-99 [facility]enMean Corpuscular Bvffshgskx0673-51-15 06:35:00* Test Item Value Reference Range Interpretation Comments Mean Corpuscular Hemoglobin (test code = 785-6) 28.9 28-32 [facility]enMean Corpuscular Hemoglobin Concent 2019-09-21 06:35:00* Test Item Value Reference Range Interpretation Comments Mean Corpuscular Hemoglobin Concent (test code = 786-4) 31.9 31-35 [facility] HarlingenRed Cell Distribution Fszvy1926-51-44 06:35:00* Test Item Value Reference Range Interpretation Comments Red Cell Distribution Width (test code = 12546-4) 13.3 11.7 -14.4 [facility] HarlingenPlatelet Hxgpq0732-78-15 06:35:00* Test Item Value Reference Range Interpretation Comments Platelet Count (test code = 777-3) 41 140-360 LL Results repeated and called to CHERELLE LEDESMA at 0634 on 09/21/19 by Miko Caal. Read back and verified.[facility]enNeutrophils (%) (Auto) 2019-09-21 06:35:00* Test Item Value Reference Range Interpretation Comments Neutrophils (%) (Auto) (test code = 02901-7) 77.2 38.7-80.0 [facility]lingenLymphocytes (%) (Auto)2019-09-21 06:35:00 * Test Item Value Reference Range Interpretation Comments Lymphocytes (%) (Auto) (test code = 736-9) 11.3 18.0-39.1 L [facility]enMonocytes (%) (Auto)2019-09-21 06:35:00* Test Item Value Reference Range Interpretation Comments Monocytes (%) (Auto) (test code = 5905-5) 7.5 4.4-11.3 [facility]enEosinophils (%) (Auto)2019-09-21 06:35:00 * Test Item Value Reference Range Interpretation Comments Eosinophils (%) (Auto) (test code = 713-8) 3.4 0.0-6.0 [facility]enBasophils (%) (Auto)2019-09-21 06:35:00* Test Item Value Reference Range Interpretation Comments Basophils (%) (Auto) (test code = 706-2) 0.4 0.0-1.0 [facility]lingenIM GRANULOCYTES %2019-09-21 06:35:00* Test Item Value Reference Range Interpretation Comments IM GRANULOCYTES % (test code = IM GRANULOCYTES %) 0.2 0.0- 1.0 [facility]enNeutrophils # (Auto)2019-09-21 06:35:00* Test Item Value Reference Range Interpretation Comments Neutrophils # (Auto) (test code = 751-8) 4.1 2.1-6.9 [facility]enLymphocytes # (Auto)2019-09-21 06:35:00* Test Item Value Reference Range Interpretation Comments Lymphocytes # (Auto) (test code = 31265-0) 0.6 1.0-3.2 L [facility]enMonocytes # (Auto)2019-09-21 06:35:00* Test Item Value Reference Range Interpretation Comments Monocytes # (Auto) (test code = 742-7) 0.4 0.2-0.8 [facility]enEosinophils # (Auto)2019-09-21 06:35:00* Test Item Value Reference Range Interpretation Comments Eosinophils # (Auto) (test code = 711-2) 0.2 0.0-0.4 [facility]enBasophils # (Auto)2019-09-21 06:35:00* Test Item Value Reference Range Interpretation Comments Basophils # (Auto) (test code = 704-7) 0.0 0.0-0.1 [facility]lingenAbsolute Immature Granulocyte (auto 2019-09-21 06:35:00* Test Item Value Reference Range Interpretation Comments Absolute Immature Granulocyte (auto (melina t code = Absolute Immature Granulocyte (auto) 0.01 0-0.1 [facility] Hospitalerum or plasma magnesium measurement (mass/volume)2019-09-21 04:53:00* Test Item Value Reference Range Interpretation Comments Magnesium Level (test code = 38956-9) 1.8 1.3-2.1 [facility] Hospitalerum or plasma ferritin measurement (mass/volume)2019-09-21 04:53:00* Test Item Value Reference Range Interpretation Comments Ferritin (test code = 2276-4) 776.53 4.63-204.00 [facility]enBlood cobalamin (vitamin B12) measurement (mass/volume)2019-09-21 04:53:00* Test Item Value Reference Range Interpretation Comments Vitamin B12 Level (test code = 41403-7) 329 213-816 [facility] Hospitalerum or plasma magnesium measurement (mass/volume)2019-09-21 04:53:00* Test Item Value Reference Range Interpretation Comments Magnesium Level (test code = 55656-5) 1.8 1.3-2.1 [facility] Hospitalerum or plasma ferritin measurement (mass/volume)2019-09-21 04:53:00* Test Item Value Reference Range Interpretation Comments Ferritin (test code = 2276-4) 776.53 4.63-204.00 [facility]enBlood cobalamin (vitamin B12) measurement (mass/volume)2019-09-21 04:53:00* Test Item Value Reference Range Interpretation Comments Vitamin B12 Level (test code = 40553-5) 329 213-816 [facility] Hospitalerum or plasma magnesium measurement (mass/volume)2019-09-21 04:53:00* Test Item Value Reference Range Interpretation Comments Magnesium Level (test code = 86111-0) 1.8 1.3-2.1 [facility] Hospitalerum or plasma ferritin measurement (mass/volume)2019-09-21 04:53:00* Test Item Value Reference Range Interpretation Comments Ferritin (test code = 2276-4) 776.53 4.63-204.00 [facility]enBlood cobalamin (vitamin B12) measurement (mass/volume)2019-09-21 04:53:00* Test Item Value Reference Range Interpretation Comments Vitamin B12 Level (test code = 28382-6) 329 213817 [facility] HarlingenCapillary blood glucose measurement by glucometer (mass/volume)2019-09-20 20:16:00* Test Item Value Reference Range Interpretation Comments Bedside Glucose (test code = 48122-3) 134 70-120 Meter ID: [id number] – HarlingenCapbaystate medical center blood glucose measurement by glucometer (mass/volume)2019-09-20 20:16:00* Test Item Value Reference Range Interpretation Comments Bedside Glucose (test code = 19858-2) 134 70-120 Meter ID: [id number] [facility] Medical Center – HarlingenCapbaystate medical center blood glucose measurement by glucometer (mass/volume)2019-09-20 20:16:00* Test Item Value Reference Range Interpretation Comments Bedside Glucose (test code = 91634-6) 134 70-120 Meter ID: [id number] – HarlingenPlatelet Estimate 2019-09-20 11:23:00* Test Item Value Reference Range Interpretation Comments Platelet Estimate (test code = 18854-6) MARKEDLY DECREASED [facility] HarlingenLarge Msghyeshw6718-22-65 11:23:00* Test Item Value Reference Range Interpretation Comments Large Platelets (test code = 5908-9) RARE [facility] HarlingenPlatelet Wpthczpd6946-46-34 11:23:00* Test Item Value Reference Range Interpretation Comments Platelet Estimate (test code = 84555-6) MARKEDLY DECREASED [facility] Kzfxarxbq3930-34-39 11:23:00* Test Item Value Reference Range Interpretation Comments Large Platelets (test code = 5908-9) [facility] Gldmmqajw9688-45-52 11:23:00* Test Item Value Reference Range Interpretation Comments Large Platelets (test code = 5908-9) [facility]Ph[facility] Pdgbq3269-53-06 05:57:00* Test Item Value Reference Range Interpretation Comments Phosphorus Level (test code = DKB4961) 3.2 2.3-4.7 [facility]enPhosphor Hztsb6432-06-59 05:57:00* Test Item Value Reference Range Interpretation Comments Phosphorus Level (test code = QBV1380) 3.2 2.3-4.7 [facility] Jelne4955-86-28 05:57:00* Test Item Value Reference Range Interpretation Comments Phosphorus Level (test code = UMK2226) 3.2 2.3-4.7 [facility] platelet xgaubtlek7219-56-18 04:15:00* Test Item Value Reference Range Interpretation Comments Large Platelets (test code = 5908-9) [facility]Phosph[facility] vaqudtbunig5339-39-58 04:15:00 * Test Item Value Reference Range Interpretation Comments Phosphorus Level (test code = TFR9508) 3.2 2.3-4.7 [facility] platelet zgjujmwhc8692-54-78 04:15:00* Test Item Value Reference Range Interpretation Comments Large Platelets (test code = 5908-9) [facility]Ph[facility] xhduahbpmff9764-26-22 04:15:00 * Test Item Value Reference Range Interpretation Comments Phosphorus Level (test code = WGP1091) 3.2 2.3-4.7 [facility] platelet jnrnuxuit1905-19-76 04:15:00* Test Item Value Reference Range Interpretation Comments Large Platelets (test code = 5908-9) [facility]Phosph[facility] zeiftmhdcws8182-43-19 04:15:00 * Test Item Value Reference Range Interpretation Comments Phosphorus Level (test code = FJE1552) 3.2 2.3-4.7 [facility] Q7460-90-47 10:15:00 [facility] [address] [address] Patient Name: MOJGAN CUMMINGS MR #: [id number] : 1950 Age/Sex: 69/F Req #: [id number] Adm Physician: ILAN STEIN MD Ordered by: MARK ANTHONY KERNS MD Report #: [id number] Location: MED/SURG3 Room/Bed: [facility] Procedure: [id number] CT/CT CHEST W Exam Date: 09/19/19 Exam [...] MARK ANTHONY KERNS MD Nucleated Red Blood Qwadv6427-55-09 08:44:00* Test Item Value Reference Range Interpretation Comments Nucleated Red Blood Cells (test code = 13973-7) NO EDTA PLT CLUMPS SEEN [facility]enPlatelet Morphology Dyqpowf0927-87-24 08:44:00* Test Item Value Reference Range Interpretation Comments Platelet Morphology Comment (test code = 13739-5) FEW GIANT [facility] HarlingenNucleated Red Blood Iujjc9474-01-80 08:44:00* Test Item Value Reference Range Interpretation Comments Nucleated Red Blood Cells (test code = 03627-5) NO EDTA PLT CLUMPS SEEN [facility] HarlingenPlatelet Morphology Cnqqhoh8938-32-23 08:44:00* Test Item Value Reference Range Interpretation Comments Platelet Morphology Comment (test code = 06222-7) FEW GIANT [facility] [facility]ucle[facility] Blood [id number] 08:44:00* Test Item Value Reference Range Interpretation Comments Nucleated Red Blood Cells (test code = 23440-6) NO EDTA PLT [facility]PS [facility]EN [facility]2019-09-19 07:45:00 [place] [address] Patient Name: MOJGAN CUMMINGS MR #: [id number] : 1950 Age/Sex: 69/F Req #: [id number] Adm Physician: ILAN STEIN MD Ordered by: CAITLYN ROMERO DO Report #: [id number] Location: MED/SURG3 Room/Bed: 2881 Procedure: [id number] DX/C HEST SINGLE (PORTABLE) Exam Date: 09/19/19 [...] 46 COPY TO: CAITLYN ROMERO DO Prothrombin Clqk8445-01-07 07:43:00 * Test Item Value Reference Range Interpretation Comments Prothrombin Time (test code = 5902-2) 13.0 11.9-14.5 [facility]en[facility]th[facility] International Ratio 2019-09-19 07:43:00* Test Item Value Reference Range Interpretation Comments Prothromb Time International Ratio (test code = 6301-6) 0.93 Oral Anticoagulant Therapy INR Values:1. Low Intensity Therapy 1.5 - 2.02 . Moderate Intensity Therapy 2.0 - 3.03. High Intensity Therapy(1) 2.5 - 3. 54. High Intensity Therapy(2) 3.0 - 4.05. Panic Value INR > 5.0 [facility]en[facility] Partial Thromboplast Time 2019-09-19 07:43:00* Test Item Value Reference Range Interpretation Comments Activated Partial Thromboplast Time (test code = 69134-6) 26.9 23.8-35.5 [facility]en[facility]th[facility] [id number] 07:43:00* Test Item Value Reference Range Interpretation Comments Prothrombin Time (test code = 5902-2) 13.0 11.9-14.5 [facility]th[facility] International Ratio 2019-09-19 07:43:00* Test Item Value Reference Range Interpretation Comments Prothromb Time International Ratio (test code = 6301-6) 0.93 Oral Anticoagulant Therapy INR Values:1. Low Intensity Therapy 1.5 - 2.02 . Moderate Intensity Therapy 2.0 - 3.03. High Intensity Therapy(1) 2.5 - 3. 54. High Intensity Therapy(2) 3.0 - 4.05. Panic Value INR > 5.0 [facility] Partial Thromboplast Time 2019-09-19 07:43:00* Test Item Value Reference Range Interpretation Comments Activated Partial Thromboplast Time (test code = 72819-4) 26.9 23.8-35.5 [facility]enProth[facility]bin [id number] 07:43:00* Test Item Value Reference Range Interpretation Comments Prothrombin Time (test code = 5902-2) 13.0 11.9-14.5 [facility] International Ratio 2019-09-19 07:43:00* Test Item Value Reference Range Interpretation Comments Prothromb Time International Ratio (test code = 6301-6) 0.93 Oral Anticoagulant Therapy INR Values:1. Low Intensity Therapy 1.5 - 2.02 . Moderate Intensity Therapy 2.0 - 3.03. High Intensity Therapy(1) 2.5 - 3. 54. High Intensity Therapy(2) 3.0 - 4.05. Panic Value INR > 5.0 [facility] Partial Thromboplast Time 2019-09-19 07:43:00* Test Item Value Reference Range Interpretation Comments Activated Partial Thromboplast Time (test code = 95893-9) 26.9 23.8-35.5 [facility]enBlood nucleated erythrocytes count (number/volume)2019-09-19 06:08:00* Test Item Value Reference Range Interpretation Comments Nucleated Red Blood Cells (test code = 06113-6) See Comment NO EDTA PLT [facility]PS [facility]EN[facility]enProthrombin time (PT) in platelet poor plasma by coagulation [id number] 06:08:00* Test Item Value Reference Range Interpretation Comments Prothrombin Time (test code = 5902-2) 13.0 11.9-14.5 [facility]enIN[facility] in Platelet poor plasma by Coagulation [id number] 06:08:00* Test Item Value Reference Range Interpretation Comments Prothromb Time International Ratio (test code = 6301-6) 0.93 Oral Anticoagulant Therapy INR Values:1. Low Intensity Therapy 1.5 - 2.02 . Moderate Intensity Therapy 2.0 - 3.03. High Intensity Therapy(1) 2.5 - 3. 54. High Intensity Therapy(2) 3.0 - 4.05. Panic Value INR > 5.0 [facility]enAct[facility] partial thromboplastin time (aPTT) in platelet poor plasma by coagulation [id number] 06:08:00* Test Item Value Reference Range Interpretation Comments Activated Partial Thromboplast Time (test code = 08107-4) 26.9 23.8-35.5 [facility]enBlood nucleated erythrocytes count (number/volume)2019-09-19 06:08:00* Test Item Value Reference Range Interpretation Comments Nucleated Red Blood Cells (test code = 81298-7) See Comment NO EDTA PLT CL[facility]PS [facility]EN[facility]lingenProthrombin time (PT) in platelet poor plasma by coagulation [id number] 06:08:00* Test Item Value Reference Range Interpretation Comments Prothrombin Time (test code = 5902-2) 13.0 11.9-14.5 [facility]enIN[facility] in Platelet poor plasma by Coagulation [id number] 06:08:00* Test Item Value Reference Range Interpretation Comments Prothromb Time International Ratio (test code = 6301-6) 0.93 Oral Anticoagulant Therapy INR Values:1. Low Intensity Therapy 1.5 - 2.02 . Moderate Intensity Therapy 2.0 - 3.03. High Intensity Therapy(1) 2.5 - 3. 54. High Intensity Therapy(2) 3.0 - 4.05. Panic Value INR > 5.0 [facility]enAct[facility] partial thromboplastin time (aPTT) in platelet poor plasma by coagulation [id number] 06:08:00* Test Item Value Reference Range Interpretation Comments Activated Partial Thromboplast Time (test code = 47833-1) 26.9 23.8-35.5 [facility]enBlood nucleated erythrocytes count (number/volume)2019-09-19 06:08:00* Test Item Value Reference Range Interpretation Comments Nucleated Red Blood Cells (test code = 18263-7) See Comment NO EDTA PLT CL[facility]PS [facility]EN[facility]enProthrombin time (PT) in platelet poor plasma by coagulation bvztk8872-16-50 06:08:00* Test Item Value Reference Range Interpretation Comments Prothrombin Time (test code = 5902-2) 13.0 11.9-14.5 [facility]enINR in Platelet poor plasma by Coagulation [id number] 06:08:00* Test Item Value Reference Range Interpretation Comments Prothromb Time International Ratio (test code = 6301-6) 0.93 Oral Anticoagulant Therapy INR Values:1. Low Intensity Therapy 1.5 - 2.02 . Moderate Intensity Therapy 2.0 - 3.03. High Intensity Therapy(1) 2.5 - 3. 54. High Intensity Therapy(2) 3.0 - 4.05. Panic Value INR > 5.0 [facility]enActivated partial thromboplastin time (aPTT) in platelet poor plasma by coagulation lpodo0530-26-41 06:08:00* Test Item Value Reference Range Interpretation Comments Activated Partial Thromboplast Time (test code = 04814-0) 26.9 23.8-35.5 [facility] 17:36:00* Test Item Value Reference Range Interpretation Comments GLUBED (test code = GLUBED) 101 mg/dL 74-106 N Performed by certified tunnel elastic operator lockstitch at [facility] [id number] 12:29:00* Test Item Value Reference Range Interpretation Comments GLUBED (test code = GLUBED) 93 mg/dL 74-106 N Performed by certified tunnel elastic operator lockstitch at [facility] [id number] 07:03:00* Test Item Value Reference Range Interpretation Comments VANCOMYCIN (test code = VANCO) 19.7 UG/ML 5.0-45.0 N BASIC METABOLIC [id number] 07:02:00* Test Item Value Reference Range Interpretation [...] CA) 8.9 mg/dL 8.5-10.1 N CBC W/AUTO [id number] 07:00:00* Test Item Value Reference Range Interpretation [...] DIFF REQUIRED (test code = MDIFF) NO [id number] 06:21:00* Test Item Value Reference Range Interpretation Comments GLUBED (test code = GLUBED) 81 mg/dL 74-106 N Performed by certified tunnel elastic operator lockstitch at [facility] [id number] 20:36:00* Test Item Value Reference Range Interpretation Comments GLUBED (test code = GLUBED) 103 mg/dL 74-106 N Performed by certified tunnel elastic operator lockstitch at [facility] [id number] 17:37:00* Test Item Value Reference Range Interpretation Comments GLUBED (test code = GLUBED) 101 mg/dL 74-106 N Performed by certified tunnel elastic operator lockstitch at [facility] [id number] 17:37:00* Test Item Value Reference Range Interpretation Comments GLUBED (test code = GLUBED) 111 mg/dL 74-106 H Performed by certified tunnel elastic operator lockstitch at [facility] BASIC METABOLIC [id number] 07:39:00* Test Item Value Reference Range Interpretation [...] code = CA) 8.7 mg/dL 8.5-10.1 N [id number] 07:39:00* Test Item Value Reference Range Interpretation Comments MAGNESIUM (test code = MAG) 1.9 mg/dL 1.8-2.4 N BASIC METABOLIC [id number] 07:06:00* Test Item Value Reference Range Interpretation [...] CALCIUM (test code = CA) mg/dL 8.5-10.1 [id number] 07:06:00* Test Item Value Reference Range Interpretation Comments MAGNESIUM (test code = MAG) mg/dL 1.8-2.4 CBC W/AUTO [id number] 06:19:00* Test Item Value Reference Range Interpretation [...] = MDIFF) NO, ONLY SCAN NEEDED DIFFERENTIAL [id number] 06:19:00* Test Item Value Reference Range Interpretation Comments STAIN ACCEPTABILITY (test code = STN ACCEPTABLE) STAIN ACCEPTABLE PLATELET ESTIMATE (test code = PLTEST) DECREASED PLATELET MORPHOLOGY (test code = PLTMORPH) NORMAL [id number] 06:13:00* Test Item Value Reference Range Interpretation Comments GLUBED (test code = GLUBED) 87 mg/dL 74-106 N Performed by certified tunnel elastic operator lockstitch at [facility] CBC W/AUTO [id number] 05:52:00* Test Item Value Reference Range Interpretation [...] = MDIFF) NO, ONLY SCAN NEEDED DIFFERENTIAL [id number] 05:52:00* Test Item Value Reference Range Interpretation Comments STAIN ACCEPTABILITY (test code = STN ACCEPTABLE) CABOT RINGS (test code = CAB) MORPHOLOGY COMMENT (test code = MOC) PLATELET ESTIMATE (test code = PLTEST) PLATELET MORPHOLOGY (test code = PLTMORPH) CBC W/AUTO [id number] 05:52:00* Test Item Value Reference Range Interpretation [...] = MDIFF) NO, ONLY SCAN NEEDED DIFFERENTIAL [id number] 05:52:00* Test Item Value Reference Range Interpretation Comments STAIN ACCEPTABILITY (test code = STN ACCEPTABLE) CABOT RINGS (test code = CAB) MORPHOLOGY COMMENT (test code = MOC) PLATELET ESTIMATE (test code = PLTEST) PLATELET MORPHOLOGY (test code = PLTMORPH) CBC W/AUTO [id number] 05:52:00* Test Item Value Reference Range Interpretation [...] = MDIFF) NO, ONLY SCAN NEEDED DIFFERENTIAL [id number] 05:52:00* Test Item Value Reference Range Interpretation Comments STAIN ACCEPTABILITY (test code = STN ACCEPTABLE) MORPHOLOGY COMMENT (test code = MOC) PLATELET ESTIMATE (test code = PLTEST) PLATELET MORPHOLOGY (test code = PLTMORPH) CBC W/AUTO [id number] 05:52:00* Test Item Value Reference Range Interpretation [...] = MDIFF) NO, ONLY SCAN NEEDED DIFFERENTIAL [id number] 05:52:00* Test Item Value Reference Range Interpretation Comments STAIN ACCEPTABILITY (test code = STN ACCEPTABLE) CABOT RINGS (test code = CAB) MORPHOLOGY COMMENT (test code = MOC) PLATELET ESTIMATE (test code = PLTEST) PLATELET MORPHOLOGY (test code = PLTMORPH) [id number] 01:58:00* Test Item Value Reference Range Interpretation Comments VANCOMYCIN (test code = VANCO) 30.0 UG/ML 5.0-45.0 N [id number] 22:13:00* Test Item Value Reference Range Interpretation Comments GLUBED (test code = GLUBED) 92 mg/dL 74-106 N Performed by certified tunnel elastic operator lockstitch at [facility] [id number] 07:36:00* Test Item Value Reference Range Interpretation Comments GLUBED (test code = GLUBED) 101 mg/dL 74-106 N Performed by certified tunnel elastic operator lockstitch at [facility] CBC W/O [id number] 06:44:00* Test Item Value Reference Range Interpretation [...] MPV) 14.7 fL 6.7-11.0 H BASIC METABOLIC [id number] 06:23:00* Test Item Value Reference Range Interpretation [...] code = CA) 8.9 mg/dL 8.5-10.1 N [id number] 06:23:00* Test Item Value Reference Range Interpretation Comments MAGNESIUM (test code = MAG) 1.6 mg/dL 1.8-2.4 L [id number] 15:13:00* Test Item Value Reference Range Interpretation Comments GLUBED (test code = GLUBED) 104 mg/dL 74-106 N Performed by certified tunnel elastic operator lockstitch at [facility] - XR CHEST 1 [id number] 07:32:00 FAX: Yoly Payne MD [phone] [place]: B St: DIS FAX: Sil Farrar MD Name: MOJGAN CUMMINGS [facility] : 1950 Age/S: 69/F Amish Mehta Eduardo Unit #: [id number] [place] [address] Phys: Sil Farrar MD Acct: [id number] Dis Date: [id number] Status: DIS IN PHONE #: [phone] Exam Date: 08/16/2019 0650 FAX #: [phone] Reason: ventilator, copd EXAMS: CPT CODE: [id number] XR CHEST 1 V 24741 EXAM: Chest x-ray, one view; INFORMATION: Respiratory failure; IMPRESSION: Improvement compared with yesterday's study: Lungs are better aerated with partial resolution of basilar atelectasis; Normal-sized heart; at 0732 Reported and signed by: Rex Gates M.D. CC: Yoly Sapp MD; Sil Farrar MD Technologist: RADHA ALEXANDRA(Ivan) [facility] Date/Time/By: 08/16/2019 (0732) : By: HarryGRW Orig Print D/T: S: 08/16/2019 (0786) PAGE 1 Signed Report - XR CHEST 1 [id number] 07:32:00 FAX: Yoly Payne MD [phone] [place]: St: ADM FAX: Sil Farrar MD Name: MOJGAN CUMMINGS MOLINA [facility] : 1950 Age/S: 69/F [address] Unit #: [id number] Loc: V.[address] [place] [address] Phys: Sil Farrar MD Acct: [id number] Dis Date: Status: ADM IN PHONE #: [phone] Exam Date: 08/16/2019 0650 FAX #: [phone] Reason: ventilator, copd EXAMS: CPT CODE: [id number] XR CHEST 1 V 62030 EXAM: Chest x-ray, one view; INFORMATION: Respirat [...] HarryGRW Orig Print D/T : S: 08/16/2019 (0735) PAGE 1 Sig julian Report - XR CHEST 1 [id number] 07:32:00 FAX: Yoly Payne MD [phone] [place]: St: DIS FAX: Sil Farrar MD Name: MOJGAN CUMMINGS [facility] : 1950 Age/S: 69/F [address] Unit #: [id number] Loc: [address] [place] [address] Phys: Sil Farrar MD Acct: [id number] Dis Date: [id number] Status: DIS IN PHONE #: [phone] Exam Date: 08/16/2019 0650 FAX #: [phone] Reason: ventilator, copd EXAMS: CPT CODE: [id number] XR CHEST 1 V 33641 EXAM: Chest x-ray, one view; INFORMATION: Respirat [...] HarryGRW Orig Print D/T : S: 08/16/2019 (0719) PAGE 1 Sig julian Report CBC W/O [id number] 07:26:00* Test Item Value Reference Range Interpretation [...] PLT) 48 K/mm3 150-450 LL Results called [id number] by [facility] 08/16/19 0722Critical results verified and read back by Nurse? Y MEAN PLATELET VOLUME (test code = MPV) 15.3 fL 6.7-11.0 H BASIC METABOLIC [id number] 07:15:00* Test Item Value Reference Range Interpretation [...] CA) 8.7 mg/dL 8.5-10.1 N BASIC METABOLIC [id number] 07:06:00* Test Item Value Reference Range Interpretation [...] CALCIUM (test code = CA) mg/dL 8.5-10.1 [id number] 07:06:00* Test Item Value Reference Range Interpretation Comments MAGNESIUM (test code = MAG) 1.7 mg/dL 1.8-2.4 L - XR CHEST 1 [id number] 06:48:00 FAX: Yoly Payne MD [phone] [place]: B St: DIS FAX: Sil Farrar MD Name: MOJGAN CUMMINGS [facility] : 1950 Age/S: 69/F [address] Unit #: [id number] Loc: [address] [place] [address] Phys: Sil Farrar MD Acct: [id number] Dis Date: [id number] Status: DIS IN PHONE #: [phone] Exam Date: 08/15/2019525 FAX #: [phone] Reason: ventilator, copd EXAMS: CPT CODE: [id number] XR CHEST 1 V 78000 HISTORY: Respiratory failure, ventilator, copd TECHNIQUE: AP [...] Signed Rep ort - XR CHEST 1 [id number] 06:48:00 FAX: Yoly Payne MD [phone] [place]: B St: ADM FAX: Sil Farrar MD Name: MOJGAN CUMMINGS [facility] : 1950 Age/S: 69/F [address] Unit #: [id number] Loc: [address] [place] [address] Phys: Sil Farrar MD Acct: [id number] Dis Date: Status: ADM IN PHONE #: [phone] Exam Date: 08/15/2019525 FAX #: [phone] Reason: ventilator, copd EXAMS: CPT CODE: [id number] XR CHEST 1 V 33999 HISTORY: Respiratory failure, ventilator, copd AHSAN HNIQUE: AP chest x-ray COMPARISON: Previous day. I MPRESSION: Increasing bibasilar airspace opacification and ate lectasis. Small pleural effusion may be present. Normal heart size. Trac heostomy tube. LOCATION: Electronically Signed by Lenka aburto 08/15/2019 at 0648 Reported and signed by: Lenka Daniels CC: Yoly Sapp MD; Sil Farrar MD Technologist: OCTAVIO VASQUEZ JR; Abigail Darling Trnmird Date/Time/By: 08/15/2019 (0648) : By: [email or web address] Orig Print D/T: S: (0651) PAGE 1 Signed Rep ort - XR CHEST 1 [id number] 06:48:00 FAX: Yoly Payne MD [phone] [place]: B St: DIS FAX: Sil Farrar MD Name: MOJGAN CUMMINGS [facility] : 1950 Age/S: 69/F Amish Clark Unit #: [id number] Loc: [place] [place] [address] Phys: Sil Farrar MD Acct: [id number] Dis Date: [id number] Status: DIS IN PHONE #: [phone] Exam Date: 08/15/2019525 FAX #: [phone] Reason: ventilator, copd EXAMS: CPT CODE: [id number] XR CHEST 1 V 20260 HISTORY: Respiratory failure, ventilator, copd AHSAN HNIQUE: [...] S: (0651) PAGE 1 Signed Rep ort [id number] 06:26:00* Test Item Value Reference Range Interpretation Comments PHOSPHORUS (test code = PHOS) 2.2 mg/dL 2.5-4.9 L BASIC METABOLIC [id number] 04:06:00* Test Item Value Reference Range Interpretation [...] code = CA) 8.5 mg/dL 8.5-10.1 N [id number] 03:58:00* Test Item Value Reference Range Interpretation Comments MAGNESIUM (test code = MAG) 1.6 mg/dL 1.8-2.4 L CBC W/O [id number] 03:34:00* Test Item Value Reference Range Interpretation [...] 46 K/mm3 150-450 LL Results called to [id number] by V.LAB.AG1 08/15/19 0333Critical results verified and read back by Nurse? Y MEAN PLATELET VOLUME (test code = MPV) TEST NOT PERFORMED fL 6.7-11 .0 [id number] 07:05:00* Test Item Value Reference Range Interpretation Comments PHOSPHORUS (test code = PHOS) 2.9 mg/dL 2.5-4.9 N [id number] 07:05:00* Test Item Value Reference Range Interpretation Comments MAGNESIUM (test code = MAG) 1.9 mg/dL 1.8-2.4 N [id number] 07:02:00* Test Item Value Reference Range Interpretation Comments PHOSPHORUS (test code = PHOS) mg/dL 2.5-4.9 [id number] 07:02:00* Test Item Value Reference Range Interpretation Comments MAGNESIUM (test code = MAG) 1.9 mg/dL 1.8-2.4 N BASIC METABOLIC [id number] 06:16:00* Test Item Value Reference Range Interpretation [...] CA) 8.7 mg/dL 8.5-10.1 N CBC W/O [id number] 06:12:00* Test Item Value Reference Range Interpretation [...] 40 K/mm3 150-450 LL Results called to [id number] by МАРИНА 08/14/19 0611Critical results verified and read back by Nurse? Y BASIC METABOLIC [id number] 06:08:00* Test Item Value Reference Range Interpretation [...] CA) mg/dL 8.5-10.1 - XR CHEST 1 [id number] 06:08:00 [facility] [place]: B St: DIS FAX: Sil Farrar MD Name: MOJGAN CUMMINGS [facility] : 1950 Age/S: 69/F [address] Unit #: [id number] Loc: V[address] [place] [address] Phys: Sil Farrar MD Acct: [id number] Dis Date: [id number] Status: DIS IN PHONE #: [phone] Exam Date: 08/14/2019528 FAX #: [phone] Reason: ventilator, copd EXAMS: CPT CODE: [id number] XR CHEST 1 V 56272 HISTORY: Respiratory failure, ventilator, copd TECHNIQUE: AP chest x-ray COMPARISON: Previous day. IMPRESSION: Increasing bibasilar subsegmental atelectasis. No airspace consolidation or pleural effusion. Normal heart size. Mediastinal silhouette is unremarkable. Tracheostomy tube. LOCATION: LP at 0608 Reported and signed by: Lenka Farrar D.O. CC: Lenore Barraza MD; Sil Farrar MD Technologist: OCTAVIO Darling Trnscrd Date/Time/By: 08/14/2019 (06) : By: [email or web address] Orig Print D/T: S: 08/14/2019 (0611) PAGE 1 Signed Report - XR CHEST 1 V 2019-08-14 06:08:00 FAX: Lenore Barraza [place]: B St: ADM FAX: Sil Farrar MD Name: MOJGAN CUMMINGS [facility] : 1950 Age/S: 69/F [address] [facility] Unit #: [id number] Loc: [address] [address] Phys: Sil Farrar MD Acct: [id number] Dis Date: Status: ADM IN PHONE #: [phone] Exam Date: 08/14/2019528 FAX #: [phone] Reason: ventilator, copd EXAMS: CPT CODE: [id number] XR CHEST 1 V 49114 HISTORY: Respiratory failure, ventilator, copd TECHNIQUE: AP chest x-ray COMPARISON: Previous day. IMPRESSION: Increasing bibasilar subsegmental atelectasis. No airspace consolidation or pleural effusion. Normal heart size. Mediastinal silhouette is unremarkable. Tracheostomy tube. LOCATION: LP at 0608 Reported and signed by: Lenka Farrar D.O. CC: Lenore Barraza MD; Sil Farrar MD Technologist: OCTAVIO VASQUEZ JR; Abigail Darling Trnmird Date/Time/By: 08/14/2019 (0608) : By: [email or web address] Orig Print D/T: S: 08/14/2019 (0611) PAGE 1 Signed Report - XR CHEST 1 V 2019-08-14 06:08:00 FAX: Lenore Barraza [place]: B St: DIS FAX: Sil Farrar MD Name: MOJGAN CUMMINGS [facility] : 1950 Age/S: 69/F [address] Unit #: [id number] Loc: [place] [address] Phys: Sil Farrar MD Acct: [id number] Dis Date: [id number] Status: DIS IN PHONE #: [phone] Exam Date: 08/14/2019528 FAX #: [phone] Reason: ventilator, copd EXAMS: CPT CODE: [id number] XR CHEST 1 V 25240 HISTORY: Respiratory failure, ventilator, copd TECHNIQUE: AP chest x-ray COMPARISON: Previous day. IMPRESSION: Increasing bibasilar subsegmental atelectasis. No airspace consolidation or pleural effusion. Normal heart size. Mediastinal silhouette is unremarkable. Tracheostomy tube. LOCATION: LP at 0608 Reported and signed by: Lenka Farrar D.O. CC: Lenore Barraza MD; Sil Farrar MD Technologist: OCTAVIO VASQUEZ JR; Abigail Darling Trnmird Date/Time/By: 08/14/2019 (0608) : By: [email or web address] Orig Print D/T: S: 08/14/2019 (0635) PAGE 1 Signed Report [id number] 20:46:00* Test Item Value Reference Range Interpretation Comments GLUBED (test code = GLUBED) 97 mg/dL 74-106 N Performed by certified tunnel elastic operator lockstitch at [facility] BASIC METABOLIC [id number] 16:02:00* Test Item Value Reference Range Interpretation [...] code = CA) 8.6 mg/dL 8.5-10.1 N [id number] 16:02:00* Test Item Value Reference Range Interpretation Comments PHOSPHORUS (test code = PHOS) 4.3 mg/dL 2.5-4.9 N [id number] 16:02:00* Test Item Value Reference Range Interpretation Comments MAGNESIUM (test code = MAG) 2.3 mg/dL 1.8-2.4 N CALCIUM [id number] 16:02:00* Test Item Value Reference Range Interpretation Comments CALCIUM IONIZED (test code = ERICH) 1.25 mmol/L 1.12-1.32 N BASIC METABOLIC [id number] 15:34:00* Test Item Value Reference Range Interpretation [...] code = CA) 8.6 mg/dL 8.5-10.1 N [id number] 15:34:00* Test Item Value Reference Range Interpretation Comments PHOSPHORUS (test code = PHOS) 4.3 mg/dL 2.5-4.9 N [id number] 15:34:00* Test Item Value Reference Range Interpretation Comments MAGNESIUM (test code = MAG) 2.3 mg/dL 1.8-2.4 N CALCIUM [id number] 15:34:00* Test Item Value Reference Range Interpretation Comments CALCIUM IONIZED (test code = ERICH) mmol/L 1.12-1.32 T3 [id number] 15:09:00* Test Item Value Reference Range Interpretation Comments T3 FREE (test code = T3F) 1.8 pg/mL 2.0-4.4 L Pe rformed At: [facility] [id number] Rashawn Swenson MD Ph:[phone] ARTERIAL BLOOD [id number] 09:51:00* Test Item Value Reference Range Interpretation [...] 15.7 % vol 18.0-22.0 L CBC W/AUTO [id number] 07:10:00* Test Item Value Reference Range Interpretation [...] = MDIFF) NO, ONLY SCAN NEEDED DIFFERENTIAL [id number] 07:10:00* Test Item Value Reference Range Interpretation Comments STAIN ACCEPTABILITY (test code = STN ACCEPTABLE) STAIN ACCEPTABLE POIKILOCYTOSIS (test code = POIK) 1+ TEAR DROP CELLS (test code = TEAR) 1+ PLATELET ESTIMATE (test code = PLTEST) DECREASED PLATELET MORPHOLOGY (test code = PLTMORPH) APPEAR LARGE TOTAL [id number] 07:08:00* Test Item Value Reference Range Interpretation Comments TOTAL T3 (test code = T3) 61 ng/dL 71-180 L Pe rformed At: [facility] [address] [place], [place] [id number] Rashawn Swenson MD Ph:[phone] THYROID STIMULATING [id number] 07:08:00* Test Item Value Reference Range Interpretation Comments THYROID STIMULATING HORMONE (test code = TSH) 7.850 uIU/mL 0.36-3.7 4 H TSH REFERENCE RANGES: EUTHYROID: 0.35 - 4.3 mIU/mL HYPO : > 5.5 mIU/mL HYPER : < 0.35 mIU/mL TSH REFLEX TO [id number] 07:08:00* Test Item Value Reference Range Interpretation Comments TSH REFLEX TO FT4 (test code = TSHREFLEX) 7.9 0.4-5.5 H - XR CHEST 1 [id number] 06:23:00 FAX: Rakesh Barrazaola [place]: B St: DIS FAX: Sil Farrar MD Name: MOJGAN CUMMINGS [facility] : 1950 Age/S: 69/F [address] [facility] Unit #: [id number] Loc: V.2078 [place] [address] Phys: Sil Farrar MD Acct: [id number] Dis Date: [id number] Status: DIS IN PHONE #: [phone] Exam Date: 08/13/2019528 FAX #: [phone] Reason: ventilator, copd EXAMS: CPT CODE: [id number] XR CHEST 1 V 64209 HISTORY: Respiratory failure, ventilator, copd TECHNIQUE: AP chest x-ray COMPARISON: Previous day. IMPRESSION: No airspace consolidation or pleural effusion. Mild right basilar subsegmental atelectasis. Normal heart size. Mediastinal silhouette is unremarkable. Tracheostomy tube. LOCATION: LP at 0623 Reported and signed by: Lenka Farrar D.O. CC: Lenore Barraza MD; Sil Farrar MD Technologist: OCTAVIO Darling Trnscrd Date/Time/By: 08/13/2019 (06) : By: [email or web address] Orig Print D/T: S: 08/13/2019 (8058) PAGE 1 Signed Report - XR CHEST 1 [id number] 06:23:00 FAX: Lenore Barraza [place]: B St: ADM FAX: Sil Farrar MD Name: MOJGAN CUMMINGS [facility] : 1950 Age/S: 69/F [address] [facility] Unit #: [id number] Loc: [address] [address] Phys: Sil Farrar MD Acct: [id number] Dis Date: Status: ADM IN PHONE #: [phone] Exam Date: 08/13/2019528 FAX #: [phone] Reason: ventilator, copd EXAMS: CPT CODE: [id number] XR CHEST 1 V 21794 HISTORY: Respiratory failure, ventilator, copd AHSAN HNIQUE: [...] By: [email or web address] Orig Print D/T: S: 08/13/2019 (34) PAGE 1 Signed Report - XR CHEST 1 [id number] 06:23:00 FAX: Lenore Barraza [place]: B St: DIS FAX: Sil Farrar MD Name: MOJGAN CUMMINGS [facility] : 1950 Age/S: 69/F [address] [facility] Unit #: [id number] Loc: V.2078 [place] [address] Phys: Sil Farrar MD Acct: [id number] Dis Date: [id number] Status: DIS IN PHONE #: [phone] Exam Date: 08/13/2019528 FAX #: [phone] Reason: ventilator, copd EXAMS: CPT CODE: [id number] XR CHEST 1 V 66129 HISTORY: Respiratory failure, ventilator, copd TECHNIQUE: AP [...] By: [email or web address] Orig Print D/T: S: 08/13/2019 (8246) PAGE 1 Signed Report BASIC METABOLIC [id number] 06:15:00* Test Item Value Reference Range Interpretation [...] code = CA) 8.5 mg/dL 8.5-10.1 N [id number] 06:15:00* Test Item Value Reference Range Interpretation Comments PHOSPHORUS (test code = PHOS) 3.9 mg/dL 2.5-4.9 N [id number] 06:15:00* Test Item Value Reference Range Interpretation Comments MAGNESIUM (test code = MAG) 2.3 mg/dL 1.8-2.4 N BASIC METABOLIC [id number] 06:10:00* Test Item Value Reference Range Interpretation [...] CALCIUM (test code = CA) mg/dL 8.5-10.1 [id number] 06:10:00* Test Item Value Reference Range Interpretation Comments PHOSPHORUS (test code = PHOS) mg/dL 2.5-4.9 [id number] 06:10:00* Test Item Value Reference Range Interpretation Comments MAGNESIUM (test code = MAG) mg/dL 1.8-2.4 CBC W/AUTO [id number] 06:00:00* Test Item Value Reference Range Interpretation [...] = MDIFF) NO, ONLY SCAN NEEDED DIFFERENTIAL [id number] 06:00:00* Test Item Value Reference Range Interpretation Comments STAIN ACCEPTABILITY (test code = STN ACCEPTABLE) CABOT RINGS (test code = CAB) MORPHOLOGY COMMENT (test code = MOC) PLATELET ESTIMATE (test code = PLTEST) PLATELET MORPHOLOGY (test code = PLTMORPH) CBC W/AUTO [id number] 06:00:00* Test Item Value Reference Range Interpretation [...] = MDIFF) NO, ONLY SCAN NEEDED DIFFERENTIAL [id number] 06:00:00* Test Item Value Reference Range Interpretation Comments STAIN ACCEPTABILITY (test code = STN ACCEPTABLE) CABOT RINGS (test code = CAB) MORPHOLOGY COMMENT (test code = MOC) PLATELET ESTIMATE (test code = PLTEST) PLATELET MORPHOLOGY (test code = PLTMORPH) CBC W/AUTO [id number] 06:00:00* Test Item Value Reference Range Interpretation [...] = MDIFF) NO, ONLY SCAN NEEDED DIFFERENTIAL [id number] 06:00:00* Test Item Value Reference Range Interpretation Comments STAIN ACCEPTABILITY (test code = STN ACCEPTABLE) MORPHOLOGY COMMENT (test code = MOC) PLATELET ESTIMATE (test code = PLTEST) PLATELET MORPHOLOGY (test code = PLTMORPH) CBC W/AUTO [id number] 06:00:00* Test Item Value Reference Range Interpretation [...] = MDIFF) NO, ONLY SCAN NEEDED DIFFERENTIAL [id number] 06:00:00* Test Item Value Reference Range Interpretation Comments STAIN ACCEPTABILITY (test code = STN ACCEPTABLE) CABOT RINGS (test code = CAB) MORPHOLOGY COMMENT (test code = MOC) PLATELET ESTIMATE (test code = PLTEST) PLATELET MORPHOLOGY (test code = PLTMORPH) BASIC METABOLIC [id number] 01:19:00* Test Item Value Reference Range Interpretation [...] code = CA) 8.6 mg/dL 8.5-10.1 N [id number] 01:19:00* Test Item Value Reference Range Interpretation Comments PHOSPHORUS (test code = PHOS) 4.0 mg/dL 2.5-4.9 N [id number] 01:19:00* Test Item Value Reference Range Interpretation Comments MAGNESIUM (test code = MAG) 2.1 mg/dL 1.8-2.4 N [id number] 01:04:00* Test Item Value Reference Range Interpretation Comments GLUBED (test code = GLUBED) 109 mg/dL 74-106 H Performed by certified tunnel elastic operator lockstitch at [facility] BASIC METABOLIC [id number] 22:00:00* Test Item Value Reference Range Interpretation [...] code = CA) 8.5 mg/dL 8.5-10.1 N [id number] 22:00:00* Test Item Value Reference Range Interpretation Comments PHOSPHORUS (test code = PHOS) 3.4 mg/dL 2.5-4.9 N [id number] 22:00:00* Test Item Value Reference Range Interpretation Comments MAGNESIUM (test code = MAG) 2.6 mg/dL 1.8-2.4 H BASIC METABOLIC [id number] 21:53:00* Test Item Value Reference Range Interpretation [...] code = CA) 8.5 mg/dL 8.5-10.1 N [id number] 21:53:00* Test Item Value Reference Range Interpretation Comments PHOSPHORUS (test code = PHOS) 3.4 mg/dL 2.5-4.9 N [id number] 21:53:00* Test Item Value Reference Range Interpretation Comments MAGNESIUM (test code = MAG) 2.6 mg/dL 1.8-2.4 H [id number] 20:07:00* Test Item Value Reference Range Interpretation Comments GLUBED (test code = GLUBED) 100 mg/dL 74-106 N Performed by certified tunnel elastic operator lockstitch at [facility] [id number] 17:59:00* Test Item Value Reference Range Interpretation Comments GLUBED (test code = GLUBED) 108 mg/dL 74-106 H Performed by certified tunnel elastic operator lockstitch at [facility] BASIC METABOLIC [id number] 17:00:00* Test Item Value Reference Range Interpretation [...] code = CA) 8.6 mg/dL 8.5-10.1 N [id number] 17:00:00* Test Item Value Reference Range Interpretation Comments PHOSPHORUS (test code = PHOS) 1.8 mg/dL 2.5-4.9 L [id number] 17:00:00* Test Item Value Reference Range Interpretation Comments MAGNESIUM (test code = MAG) 1.9 mg/dL 1.8-2.4 N BASIC METABOLIC [id number] 16:56:00* Test Item Value Reference Range Interpretation [...] CALCIUM (test code = CA) mg/dL 8.5-10.1 [id number] 16:56:00* Test Item Value Reference Range Interpretation Comments PHOSPHORUS (test code = PHOS) mg/dL 2.5-4.9 [id number] 16:56:00* Test Item Value Reference Range Interpretation Comments MAGNESIUM (test code = MAG) mg/dL 1.8-2.4 CBC W/AUTO [id number] 16:35:00* Test Item Value Reference Range Interpretation [...] 35 K/mm3 150-450 LL Results called to [id number] by WhitetruffleLAB.HD1 08/12/19 1531Critical results verified and read back [...] = MDIFF) NO, ONLY SCAN NEEDED DIFFERENTIAL [id number] 16:35:00* Test Item Value Reference Range Interpretation Comments STAIN ACCEPTABILITY (test code = STN ACCEPTABLE) STAIN ACCEPTABLE MORPHOLOGY COMMENT (test code = MOC) NORMAL PLATELET ESTIMATE (test code = PLTEST) DECREASED PLATELET MORPHOLOGY (test code = PLTMORPH) NORMAL [id number] 16:17:00* Test Item Value Reference Range Interpretation Comments GLUBED (test code = GLUBED) 107 mg/dL 74-106 H Performed by certified tunnel elastic operator lockstitch at [facility] CBC W/AUTO [id number] 15:31:00* Test Item Value Reference Range Interpretation [...] 35 K/mm3 150-450 LL Results called to [id number] by V.LAB.HD1 08/12/19 1531Critical results verified and [...] = MDIFF) NO, ONLY SCAN NEEDED DIFFERENTIAL [id number] 15:31:00* Test Item Value Reference Range Interpretation Comments STAIN ACCEPTABILITY (test code = STN ACCEPTABLE) CABOT RINGS (test code = CAB) MORPHOLOGY COMMENT (test code = MOC) PLATELET ESTIMATE (test code = PLTEST) PLATELET MORPHOLOGY (test code = PLTMORPH) CBC W/AUTO [id number] 15:31:00* Test Item Value Reference Range Interpretation [...] 35 K/mm3 150-450 LL Results called to [id number] by V.LAB.HD1 08/12/19 1531Critical results verified and [...] = MDIFF) NO, ONLY SCAN NEEDED DIFFERENTIAL [id number] 15:31:00* Test Item Value Reference Range Interpretation Comments STAIN ACCEPTABILITY (test code = STN ACCEPTABLE) CABOT RINGS (test code = CAB) MORPHOLOGY COMMENT (test code = MOC) PLATELET ESTIMATE (test code = PLTEST) PLATELET MORPHOLOGY (test code = PLTMORPH) CBC W/AUTO [id number] 15:31:00* Test Item Value Reference Range Interpretation [...] 35 K/mm3 150-450 LL Results called to [id number] by WhitetruffleLAB.HD1 08/12/19 1531Critical results verified and read back [...] = MDIFF) NO, ONLY SCAN NEEDED DIFFERENTIAL [id number] 15:31:00* Test Item Value Reference Range Interpretation Comments STAIN ACCEPTABILITY (test code = STN ACCEPTABLE) MORPHOLOGY COMMENT (test code = MOC) PLATELET ESTIMATE (test code = PLTEST) PLATELET MORPHOLOGY (test code = PLTMORPH) CBC W/AUTO [id number] 15:31:00* Test Item Value Reference Range Interpretation [...] 35 K/mm3 150-450 LL Results called to [id number] by V.LAB.HD1 08/12/19 1531Critical results verified and [...] = MDIFF) NO, ONLY SCAN NEEDED DIFFERENTIAL [id number] 15:31:00* Test Item Value Reference Range Interpretation Comments STAIN ACCEPTABILITY (test code = STN ACCEPTABLE) CABOT RINGS (test code = CAB) MORPHOLOGY COMMENT (test code = MOC) PLATELET ESTIMATE (test code = PLTEST) PLATELET MORPHOLOGY (test code = PLTMORPH) TOTAL [id number] 14:18:00* Test Item Value Reference Range Interpretation Comments TOTAL T3 (test code = T3) THYROID STIMULATING [id number] 14:18:00* Test Item Value Reference Range Interpretation Comments THYROID STIMULATING HORMONE (test code = TSH) 7.850 uIU/mL 0.36-3.7 4 H TSH REFERENCE RANGES: EUTHYROID: 0.35 - 4.3 mIU/mL HYPO : > 5.5 mIU/mL HYPER : < 0.35 mIU/mL TSH REFLEX TO [id number] 14:18:00* Test Item Value Reference Range Interpretation Comments TSH REFLEX TO FT4 (test code = TSHREFLEX) 7.9 0.4-5.5 H [id number] 14:13:00* Test Item Value Reference Range Interpretation Comments GLUBED (test code = GLUBED) 115 mg/dL 74-106 H Performed by certified tunnel elastic operator lockstitch at [facility] BASIC METABOLIC [id number] 12:40:00* Test Item Value Reference Range Interpretation Comments SODIUM (test code = NA) 141 mmol/L 136-145 N POTASSIUM (test code = K) 2.8 mmol/L 3.5-5.1 LL Re sults called to [id number] by V.LAB.WTRISTIAN 08/12/19 1238Critical results verified and [...] code = CA) 9.0 mg/dL 8.5-10.1 N [id number] 12:40:00* Test Item Value Reference Range Interpretation Comments PHOSPHORUS (test code = PHOS) 2.3 mg/dL 2.5-4.9 L [id number] 12:40:00* Test Item Value Reference Range Interpretation Comments MAGNESIUM (test code = MAG) 2.0 mg/dL 1.8-2.4 N LACTIC [id number] 12:33:00* Test Item Value Reference Range Interpretation Comments LACTIC ACID (test code = LACT) 0.9 mmol/L 0.4-1.9 N [id number] 12:26:00* Test Item Value Reference Range Interpretation Comments GLUBED (test code = GLUBED) 121 mg/dL 74-106 H Performed by certified tunnel elastic operator lockstitch at [facility] [id number] 11:26:00* Test Item Value Reference Range Interpretation Comments GLUBED (test code = GLUBED) 111 mg/dL 74-106 H Performed by certified tunnel elastic operator lockstitch at [facility] [id number] 09:26:00* Test Item Value Reference Range Interpretation Comments GLUBED (test code = GLUBED) 159 mg/dL 74-106 H Performed by certified tunnel elastic operator lockstitch at [facility] LACTIC [id number] 08:41:00* Test Item Value Reference Range Interpretation Comments LACTIC ACID (test code = LACT) 2.0 mmol/L 0.4-1.9 H Results called to [id number] by CHRISTIE 08/12/19 0841Critical results verified and read back by Nurse? Y BASIC METABOLIC [id number] 08:38:00* Test Item Value Reference Range Interpretation [...] code = CA) 8.9 mg/dL 8.5-10.1 N [id number] 08:38:00* Test Item Value Reference Range Interpretation Comments PHOSPHORUS (test code = PHOS) 4.2 mg/dL 2.5-4.9 N [id number] 08:38:00* Test Item Value Reference Range Interpretation Comments MAGNESIUM (test code = MAG) 2.2 mg/dL 1.8-2.4 N BASIC METABOLIC [id number] 08:30:00* Test Item Value Reference Range Interpretation [...] CALCIUM (test code = CA) mg/dL 8.5-10.1 [id number] 08:30:00* Test Item Value Reference Range Interpretation Comments PHOSPHORUS (test code = PHOS) mg/dL 2.5-4.9 [id number] 08:30:00* Test Item Value Reference Range Interpretation Comments MAGNESIUM (test code = MAG) mg/dL 1.8-2.4 [id number] 08:05:00* Test Item Value Reference Range Interpretation Comments GLUBED (test code = GLUBED) 65 mg/dL 74-106 L Performed by certified tunnel elastic operator lockstitch at [facility] [id number] 07:26:00* Test Item Value Reference Range Interpretation Comments GLUBED (test code = GLUBED) 66 mg/dL 74-106 L Performed by certified tunnel elastic operator lockstitch at [facility] - XR CHEST 1 [id number] 07:23:00 FAX: Lenore Barraza [place]: B St: DIS FAX: Sil Farrar MD Name: MOJGAN CUMMINGS [facility] : 1950 Age/S: 69/F [address] Unit #: [id number] Loc: V.2078 [place] [address] Phys: Sil Farrar MD Acct: [id number] Dis Date: [id number] Status: DIS IN PHONE #: [phone] Exam Date: 08/12/2019 0500 FAX #: [phone] Reason: ventilator, copd EXAMS: CPT CODE: [id number] XR CHEST 1 V 56892 HISTORY: Respiratory failure, ventilator, copd TECHNIQUE: AP chest x-ray COMPARISON: Previous day. IMPRESSION: No airspace consolidation or pleural effusion. Normal heart size. Mediastinal silhouette is unremarkable. Tracheostomy tube. LOCATION: LP at 0723 Reported and signed by: Lenka Farrar D.O. CC: Lenore Luna MD; Sil Farrar MD Technologist: Wicho Love T(R); RT CISCO(R) Trnscrd Date/Time/By: 08/12/2019 (0723 ) : By: [email or web address] Orig Print D/T: S: 08/12/2019 (0705) PAGE 1 Signed Report - XR CHEST 1 [id number] 07:23:00 FAX: Lenore Barraza [place]: B St: ADM FAX: Sli Farrar [facility] 1950 [facility]S: 69[facility]F [address] Unit #: [id number] Loc: V.S22 [place] [address] Phys: Sil Farrar MD Acct: [id number] Dis Date: Status: ADM IN PHONE #: [phone] Exam Date: 08/12/2019 0500 FAX #: [phone] Reason: ventilator, copd EXAMS: CPT CODE: [id number] XR CHEST 1 V 13870 HISTORY: Respiratory failure, ventilator, copd TECHNIQUE: AP chest x-ray COMPARISON: Previous day. IMPRESSION: No airspace consolidation or pleural effusion. Normal heart size. Mediastinal silhouette is unremarkable. Tracheostomy tube. LOCATION: at 0723 Reported and signed by: Lenka Farrar D.O. CC: Lenore Luna MD; Sil Farrar MD Technologist: Wicho Love T(R); RT CISCO(R) Trnscrd Date/Time/By: 08/12/2019 (07 ) : By: [email or web address] Orig Print D/T: S: 08/12/2019 (07) PAGE 1 Signed Report - XR CHEST 1 [id number] 07:23:00 FAX: Lenore Barraza [place]: B St: DIS FAX: Sil Farrar MD Name: MOJGAN CUMMINGS [facility] : 1950 Age/S: 69/F [address] Unit #: [id number] Loc[place] V.2079 [place] [address] Phys: Sil Farrar MD Acct: [id number] Dis Date: [id number] Status: DIS IN PHONE #: [phone] Exam Date: 08/12/2019 0500 FAX #: [phone] Reason: ventilator, copd EXAMS: CPT CODE: [id number] XR CHEST 1 V 54593 HISTORY: Respiratory failure, ventilator, copd TECHNIQUE: AP chest x-ray COMPARISON: Previous day. IMPRESSION: No airspace consolidation or pleural effusion. Normal heart size. Mediastinal silhouette is unremarkable. Tracheostomy tube. LOCATION: LP at 0723 Reported and signed by: Lenka Farrar D.O. CC: Lenore Luna MD; Sil Farrar MD Technologist: Wicho Love T(R); RT CISCO(R) Trnscrd Date/Time/By: 08/12/2019 (07 ) : By: [email or web address] Orig Print D/T: S: 08/12/2019 (0753) PAGE 1 Signed Report LACTIC [id number] 05:29:00* Test Item Value Reference Range Interpretation Comments LACTIC ACID (test code = LACT) 2.0 mmol/L 0.4-1.9 H Results called to [id number]. by JOSEY 08/12/19 0529Critical results verified and read back by Nurse? Y Specimen 3+ Hemolysed.Some results MAY NOT be accurate due to hemolysis. BASIC METABOLIC [id number] 05:26:00* Test Item Value Reference Range Interpretation [...] CA) 8.8 mg/dL 8.5-10.1 N BASIC METABOLIC [id number] 05:20:00* Test Item Value Reference Range Interpretation [...] code = CA) 8.8 mg/dL 8.5-10.1 N [id number] 05:19:00* Test Item Value Reference Range Interpretation Comments MAGNESIUM (test code = MAG) 2.5 mg/dL 1.8-2.4 H Specimen 4+ Hemolysed.Some results MAY NOT be accurate due to hemolysis. [id number] 05:16:00* Test Item Value Reference Range Interpretation Comments MAGNESIUM (test code = MAG) 2.5 mg/dL 1.8-2.4 H [id number] 05:11:00* Test Item Value Reference Range Interpretation Comments PHOSPHORUS (test code = PHOS) 1.7 mg/dL 2.5-4.9 L Specimen 4+ Hemolysed.Some results MAY NOT be accurate due to hemolysis. CALCIUM [id number] 05:11:00* Test Item Value Reference Range Interpretation Comments CALCIUM IONIZED (test code = ERICH) 1.26 mmol/L 1.12-1.32 N ARTERIAL BLOOD [id number] 05:04:00* Test Item Value Reference Range Interpretation [...] Gomes 05:03 - 08/12/2019; by Dilcia Hdz, TRACK EQUIPMENT OPERATOR METHEMOGLOBIN (test code = METHGB) 0.4 % 0.0-1.50 N O2 CONTENT (test code = O2CT) 16.4 % vol 18.0-22.0 L CBC W/O [id number] 05:02:00* Test Item Value Reference Range Interpretation [...] 30 K/mm3 150-450 LL Results called to [id number] by V.[facility] 08/12/19 0502Critical results verified and read back by Nurse? Y [id number] 04:45:00* Test Item Value Reference Range Interpretation Comments PHOSPHORUS (test code = PHOS) 1.7 mg/dL 2.5-4.9 L CALCIUM [id number] 04:45:00* Test Item Value Reference Range Interpretation Comments CALCIUM IONIZED (test code = ERICH) 1.26 mmol/L 1.12-1.32 N [id number] 04:32:00* Test Item Value Reference Range Interpretation Comments PHOSPHORUS (test code = PHOS) mg/dL 2.5-4.9 CALCIUM [id number] 04:32:00* Test Item Value Reference Range Interpretation Comments CALCIUM IONIZED (test code = ERICH) 1.26 mmol/L 1.12-1.32 N THROMBOPLASTIN TIME [id number] 00:45:00* Test Item Value Reference Range Interpretation Comments THROMBOPLASTIN TIME PARTIAL (test code = PTT) 31.2 seconds 25.0-36. 5 N IS PATIENT ON ANTICOAGULANTS? [id number] 00:45:00* Test Item Value Reference Range Interpretation Comments FIBRINOGEN (test code = FIB) 464 mg/dL 200-400 H IS PATIENT ON ANTICOAGULANTS? [id number] 00:45:00* Test Item Value Reference Range Interpretation Comments D-DIMER (test code = DDIMER) 2253.00 ng/mLFEU 0-500 HH Results called to [id number] by V.LAB.[facility] 08/12/19 0017Critical results verified and read back [...] - IS PATIENT ON ANTICOAGULANTS? NHEPARIN INDUCED [id number] 00:45:00 * Test Item Value Reference Range Interpretation Comments HEPARIN INDUCED THROMBOCYTOPEN (test code = HIT) NEGATIVE NEGAT [place] IS PATIENT ON ANTICOAGULANTS? NTHROMBOPLASTIN TIME [id number] 00:18:00* Test Item Value Reference Range Interpretation Comments THROMBOPLASTIN TIME PARTIAL (test code = PTT) 31.2 seconds 25.0-36. 5 N IS PATIENT ON ANTICOAGULANTS? [id number] 00:18:00* Test Item Value Reference Range Interpretation Comments FIBRINOGEN (test code = FIB) 464 mg/dL 200-400 H IS PATIENT ON ANTICOAGULANTS? [id number] 00:18:00* Test Item Value Reference Range Interpretation Comments D-DIMER (test code = DDIMER) 2253.00 ng/mLFEU 0-500 HH Results called to [id number] by LookUP.LAB.[facility] 08/12/19 0017Critical results verified and read back [...] - IS PATIENT ON ANTICOAGULANTS? NHEPARIN INDUCED [id number] 00:18:00 * Test Item Value Reference Range Interpretation Comments HEPARIN INDUCED THROMBOCYTOPEN (test code = HIT) NEGAT [place] IS PATIENT ON ANTICOAGULANTS? NCBC W/AUTO [id number] 00:14:00* Test Item Value Reference Range Interpretation [...] 28 K/mm3 150-450 LL Results called to [id number] by FERNANDO 08/11/19 2348Critical results verified and [...] SCAN NEEDED SPECIMEN COMMENTS: BLOOD IN LABDIFFERENTIAL [id number] 00:14:00* Test Item Value Reference Range Interpretation Comments STAIN ACCEPTABILITY (test code = STN ACCEPTABLE) STAIN ACCEPTABLE POIKILOCYTOSIS (test code = POIK) 1+ ELLIPTOCYTES (test code = ELL) 1+ CRENATED CELLS (test code = CREN) 1+ PLATELET ESTIMATE (test code = PLTEST) DECREASED PLATELET MORPHOLOGY (test code = PLTMORPH) APPEAR LARGE SPECIMEN COMMENTS: BLOOD IN LABLACTIC [id number] 00:06:00* Test Item Value Reference Range Interpretation Comments LACTIC ACID (test code = LACT) 3.0 mmol/L 0.4-1.9 HH Results called to [id number] by JOSEY 08/12/19 0005Critical results verified and read back by Nurse? Y BASIC METABOLIC [id number] 00:05:00* Test Item Value Reference Range Interpretation [...] code = CA) 9.2 mg/dL 8.5-10.1 N [id number] 00:05:00* Test Item Value Reference Range Interpretation Comments PHOSPHORUS (test code = PHOS) 2.0 mg/dL 2.5-4.9 L [id number] 00:05:00* Test Item Value Reference Range Interpretation Comments MAGNESIUM (test code = MAG) 2.3 mg/dL 1.8-2.4 N CALCIUM [id number] 00:05:00* Test Item Value Reference Range Interpretation Comments CALCIUM IONIZED (test code = ERICH) 1.31 mmol/L 1.12-1.32 N BASIC METABOLIC [id number] 23:58:00* Test Item Value Reference Range Interpretation [...] CALCIUM (test code = CA) mg/dL 8.5-10.1 [id number] 23:58:00* Test Item Value Reference Range Interpretation Comments PHOSPHORUS (test code = PHOS) mg/dL 2.5-4.9 [id number] 23:58:00* Test Item Value Reference Range Interpretation Comments MAGNESIUM (test code = MAG) mg/dL 1.8-2.4 CALCIUM [id number] 23:58:00* Test Item Value Reference Range Interpretation Comments CALCIUM IONIZED (test code = ERICH) 1.31 mmol/L 1.12-1.32 N BASIC METABOLIC [id number] 23:56:00* Test Item Value Reference Range Interpretation [...] CALCIUM (test code = CA) mg/dL 8.5-10.1 [id number] 23:56:00* Test Item Value Reference Range Interpretation Comments PHOSPHORUS (test code = PHOS) mg/dL 2.5-4.9 [id number] 23:56:00* Test Item Value Reference Range Interpretation Comments MAGNESIUM (test code = MAG) mg/dL 1.8-2.4 CALCIUM [id number] 23:56:00* Test Item Value Reference Range Interpretation Comments CALCIUM IONIZED (test code = ERICH) 1.31 mmol/L 1.12-1.32 N CBC W/AUTO [id number] 23:54:00* Test Item Value Reference Range Interpretation [...] 28 K/mm3 150-450 LL Results called to [id number] by [email or web address] 08/11/19 2348Critical results verified and read back [...] SCAN NEEDED SPECIMEN COMMENTS: BLOOD IN LABDIFFERENTIAL [id number] 23:54:00* Test Item Value Reference Range Interpretation Comments STAIN ACCEPTABILITY (test code = STN ACCEPTABLE) MORPHOLOGY COMMENT (test code = MOC) PLATELET ESTIMATE (test code = PLTEST) PLATELET MORPHOLOGY (test code = PLTMORPH) SPECIMEN COMMENTS: BLOOD IN LABCBC W/AUTO [id number] 23:49:00* Test Item Value Reference Range Interpretation [...] 28 K/mm3 150-450 LL Results called to [id number] by [facility] 08/11/19 2348Critical results verified and read back [...] SCAN NEEDED SPECIMEN COMMENTS: BLOOD IN LABDIFFERENTIAL [id number] 23:49:00* Test Item Value Reference Range Interpretation Comments STAIN ACCEPTABILITY (test code = STN ACCEPTABLE) CABOT RINGS (test code = CAB) MORPHOLOGY COMMENT (test code = MOC) PLATELET ESTIMATE (test code = PLTEST) PLATELET MORPHOLOGY (test code = PLTMORPH) SPECIMEN COMMENTS: BLOOD IN LABCBC W/AUTO [id number] 23:49:00* Test Item Value Reference Range Interpretation [...] 28 K/mm3 150-450 LL Results called to [id number] by [facility] 08/11/19 2348Critical results verified and read back [...] SCAN NEEDED SPECIMEN COMMENTS: BLOOD IN LABDIFFERENTIAL [id number] 23:49:00* Test Item Value Reference Range Interpretation Comments STAIN ACCEPTABILITY (test code = STN ACCEPTABLE) MORPHOLOGY COMMENT (test code = MOC) PLATELET ESTIMATE (test code = PLTEST) PLATELET MORPHOLOGY (test code = PLTMORPH) SPECIMEN COMMENTS: BLOOD IN LABCB W/AUTO [id number] 23:49:00* Test Item Value Reference Range Interpretation [...] 28 K/mm3 150-450 LL Results called to [id number] by [facility] 08/11/19 2348Critical results verified and read back [...] SCAN NEEDED SPECIMEN COMMENTS: BLOOD IN LABDIFFERENTIAL [id number] 23:49:00* Test Item Value Reference Range Interpretation Comments STAIN ACCEPTABILITY (test code = STN ACCEPTABLE) CABOT RINGS (test code = CAB) MORPHOLOGY COMMENT (test code = MOC) PLATELET ESTIMATE (test code = PLTEST) PLATELET MORPHOLOGY (test code = PLTMORPH) SPECIMEN COMMENTS: BLOOD IN [id number] 22:25:00* Test Item Value Reference Range Interpretation Comments GLUBED (test code = GLUBED) 81 mg/dL 74-106 N Performed by certified tunnel elastic operator lockstitch at [facility] PROCALCITONIN (PCT)2019-08-11 21:16:00* Test Item [...] into account the patients history. BASIC METABOLIC [id number] 20:50:00* Test Item Value Reference Range Interpretation [...] code = CA) 9.2 mg/dL 8.5-10.1 N [id number] 20:50:00* Test Item Value Reference Range Interpretation Comments PHOSPHORUS (test code = PHOS) 3.3 mg/dL 2.5-4.9 N [id number] 20:50:00* Test Item Value Reference Range Interpretation Comments MAGNESIUM (test code = MAG) 2.6 mg/dL 1.8-2.4 H BASIC METABOLIC [id number] 20:46:00* Test Item Value Reference Range Interpretation [...] CALCIUM (test code = CA) mg/dL 8.5-10.1 [id number] 20:46:00* Test Item Value Reference Range Interpretation Comments PHOSPHORUS (test code = PHOS) mg/dL 2.5-4.9 [id number] 20:46:00* Test Item Value Reference Range Interpretation Comments MAGNESIUM (test code = MAG) mg/dL 1.8-2.4 CBC W/AUTO [id number] 20:44:00* Test Item Value Reference Range Interpretation [...] 27 K/mm3 150-450 LL Results called to [id number] by V.LAB.HD1 08/11/19 2044Critical results verified and [...] code = MDIFF) NO, ONLY SCAN NEEDED [id number] 19:18:00* Test Item Value Reference Range Interpretation Comments GLUBED (test code = GLUBED) 71 mg/dL 74-106 L Performed by certified tunnel elastic operator lockstitch at [facility] [id number] 18:04:00* Test Item Value Reference Range Interpretation Comments GLUBED (test code = GLUBED) 88 mg/dL 74-106 N Performed by certified tunnel elastic operator lockstitch at [facility] CBC W/AUTO [id number] 17:35:00* Test Item Value Reference Range Interpretation [...] 29 K/mm3 150-450 LL Results called to [id number] by V.LAB.HD1 08/11/19 1647Critical results verified and [...] = MDIFF) NO, ONLY SCAN NEEDED DIFFERENTIAL [id number] 17:35:00* Test Item Value Reference Range Interpretation Comments STAIN ACCEPTABILITY (test code = STN ACCEPTABLE) STAIN ACCEPTABLE PLATELET ESTIMATE (test code = PLTEST) DECREASED PLATELET MORPHOLOGY (test code = PLTMORPH) NORMAL B-TYPE NATRIURETIC [id number] 17:23:00* Test Item Value Reference Range Interpretation Comments B-TYPE NATRIURETIC PEPTIDE (test code = BNP) 96.95 pgram/mL 0-100 N BASIC METABOLIC [id number] 17:22:00* Test Item Value Reference Range Interpretation [...] code = CA) 9.3 mg/dL 8.5-10.1 N [id number] 17:22:00* Test Item Value Reference Range Interpretation Comments PHOSPHORUS (test code = PHOS) 2.0 mg/dL 2.5-4.9 L [id number] 17:22:00* Test Item Value Reference Range Interpretation Comments MAGNESIUM (test code = MAG) 2.9 mg/dL 1.8-2.4 H [id number] 17:22:00* Test Item Value Reference Range Interpretation Comments CKMB (test code = CKMBT) 11.6 ng/mL 0-6.0 H [id number] 17:22:00* Test Item Value Reference Range Interpretation Comments TROPONIN-I (test code = TROPI) 1.680 ng/mL 0-0.045 HH [id number] 17:12:00* Test Item Value Reference Range Interpretation Comments GLUBED (test code = GLUBED) 74 mg/dL 74-106 N Performed by certified tunnel elastic operator lockstitch at [facility] BASIC METABOLIC [id number] 16:52:00* Test Item Value Reference Range Interpretation [...] CALCIUM (test code = CA) mg/dL 8.5-10.1 [id number] 16:52:00* Test Item Value Reference Range Interpretation Comments PHOSPHORUS (test code = PHOS) mg/dL 2.5-4.9 [id number] 16:52:00* Test Item Value Reference Range Interpretation Comments MAGNESIUM (test code = MAG) mg/dL 1.8-2.4 [id number] 16:52:00* Test Item Value Reference Range Interpretation Comments CKMB (test code = CKMBT) ng/mL 0-6.0 [id number] 16:52:00* Test Item Value Reference Range Interpretation Comments TROPONIN-I (test code = TROPI) ng/mL 0-0.045 CBC W/AUTO [id number] 16:48:00* Test Item Value Reference Range Interpretation [...] 29 K/mm3 150-450 LL Results called to [id number] by DELMA.HD1 08/11/19 1647Critical results verified and read back [...] = MDIFF) NO, ONLY SCAN NEEDED DIFFERENTIAL [id number] 16:48:00* Test Item Value Reference Range Interpretation Comments STAIN ACCEPTABILITY (test code = STN ACCEPTABLE) CABOT RINGS (test code = CAB) MORPHOLOGY COMMENT (test code = MOC) PLATELET ESTIMATE (test code = PLTEST) PLATELET MORPHOLOGY (test code = PLTMORPH) CBC W/AUTO [id number] 16:48:00* Test Item Value Reference Range Interpretation [...] 29 K/mm3 150-450 LL Results called to [id number] by [facility]UP.LAB.HD1 08/11/19 1647Critical results verified and read back [...] = MDIFF) NO, ONLY SCAN NEEDED DIFFERENTIAL [id number] 16:48:00* Test Item Value Reference Range Interpretation Comments STAIN ACCEPTABILITY (test code = STN ACCEPTABLE) CABOT RINGS (test code = CAB) MORPHOLOGY COMMENT (test code = MOC) PLATELET ESTIMATE (test code = PLTEST) PLATELET MORPHOLOGY (test code = PLTMORPH) CBC W/AUTO [id number] 16:48:00* Test Item Value Reference Range Interpretation [...] 29 K/mm3 150-450 LL Results called to [id number] by DELMA.HD1 08/11/19 1647Critical results verified and read back [...] = MDIFF) NO, ONLY SCAN NEEDED DIFFERENTIAL [id number] 16:48:00* Test Item Value Reference Range Interpretation Comments STAIN ACCEPTABILITY (test code = STN ACCEPTABLE) MORPHOLOGY COMMENT (test code = MOC) PLATELET ESTIMATE (test code = PLTEST) PLATELET MORPHOLOGY (test code = PLTMORPH) CBC W/AUTO [id number] 16:48:00* Test Item Value Reference Range Interpretation [...] 29 K/mm3 150-450 LL Results called to [id number] by Tickade.HD1 08/11/19 1647Critical results verified and read back [...] = MDIFF) NO, ONLY SCAN NEEDED DIFFERENTIAL [id number] 16:48:00* Test Item Value Reference Range Interpretation Comments STAIN ACCEPTABILITY (test code = STN ACCEPTABLE) CABOT RINGS (test code = CAB) MORPHOLOGY COMMENT (test code = MOC) PLATELET ESTIMATE (test code = PLTEST) PLATELET MORPHOLOGY (test code = PLTMORPH) [id number] 16:29:00* Test Item Value Reference Range Interpretation Comments GLUBED (test code = GLUBED) 88 mg/dL 74-106 N Performed by certified tunnel elastic operator lockstitch at [facility] [id number] 15:02:00* Test Item Value Reference Range Interpretation Comments GLUBED (test code = GLUBED) 106 mg/dL 74-106 N Performed by certified tunnel elastic operator lockstitch at [facility] [id number] 14:07:00* Test Item Value Reference Range Interpretation Comments GLUBED (test code = GLUBED) 108 mg/dL 74-106 H Performed by certified tunnel elastic operator lockstitch at [facility] ARTERIAL BLOOD [id number] 13:47:00* Test Item Value Reference Range Interpretation [...] vol 18.0-22.0 L - XR CHEST 1 [id number] 13:15:00 FAX: Alecia Girard NP [phone] [place]: B St: DIS FAX: MadiAlexandraLenore Name: MOJGAN CUMMINGS [facility] : 1950 Age/S: 69/F [address] [facility] Unit #: [id number] Loc: [place] [address] Phys: Alecia Girard NP Acct: [id number] Dis Date: [id number] Status: DIS IN PHONE #: [phone] Exam Date: 08/11/2019 1245 FAX #: [phone] Reason: SHORTNESS OF BREATH EXAMS: CPT CODE: [id number] XR CHEST 1 V 94112 EXAM: Chest x-ray, one view; INFORMATION: Shortness of breath, respiratory failure; IMPRESSION: 1. No evidence of acute cardiothoracic abnormalities. 2. No change compared with the study obtained earlier today. Location code: [facility] at 1317 Reported and signed by: Rex Gates M.D. CC: Alecia Girard NP; Lenore Mendoza MD Technologist: Sherrie Bob RT(R); Misty florentino RT(R) Trnmird Date/Time/By: 08/11/2019 (5932) : By: HarryGR W Orig Print D/T: S: 08/11/2019 (4974) PAGE 1 Signed Report - XR CHEST 1 V 2019-08-11 13:15:00 FAX: Alecia Girard NP [phone] [place]: B St: ADM FAX: MadiLenore Name: MOJGAN CUMMINGS [facility] : 1950 Age/S: 69/F [address] Unit #: [id number] Loc: [address] [address] Phys: Alecia Girard NP Acct: [id number] Dis Date: Status: ADM IN PHONE #: [phone] Exam Date: 08/11/2019 1245 FAX #: [phone] Reason: SHORTNESS OF BREATH EXAMS: CPT CODE: [id number] XR CHEST 1 V 37362 EXAM: Chest x-ray, one view; INFORMATION: Shortness of breath, respiratory failure; IMPRESSION: 1. No evidence of acute cardiothoracic abnormalities. 2. No change compared with the study obtained earlier today. Location code: [facility] at 1315 Reported and signed by: Rex Gates M.D. CC: Alecia Girard NP; Lenore Mendoza MD Technologist: Sherrie Bob RT(R); Misty florentino RT(R) Trnmird Date/Time/By: 08/11/2019 (9103) : By: HarryGR W Orig Print D/T: S: 08/11/2019 (1283) PAGE 1 Signed Report - XR CHEST 1 V 2019-08-11 13:15:00 FAX: Alecia Girard NP [phone] [place]: B St: DIS FAX: Lenore Barraza Name: MOJGAN CUMMINGS [facility] : 1950 Age/S: 69/F [address] Unit #: [id number] Loc: V.2078 [place] [address] Phys: Alecia Girard NP Acct: [id number] Dis Date: [id number] Status: DIS IN PHONE #: [phone] Exam Date: 08/11/2019 1245 FAX #: [phone] Reason: SHORTNESS OF BREATH EXAMS: CPT CODE: [id number] XR CHEST 1 V 25755 EXAM: Chest x-ray, one view; INFORMATION: Shortness of breath, respiratory failure; IMPRESSION: 1. No evidence of acute cardiothoracic abnormalities. 2. No change compared with the study obtained earlier today. Location code: [facility] at 1315 Reported and signed by: Rex Gates M.D. CC: Alecia Girard NP; Lenore Mendoza MD Technologist: Sherrie Bob RT(R); Misty florentino RT(R) Trnscrd Date/Time/By: 08/11/2019 (7037) : By: Jennifer W Orig Print D/T: S: 08/11/2019 (5355) PAGE 1 Signed Report CBC W/AUTO [id number] 12:29:00* Test Item Value Reference Range Interpretation [...] 37 K/mm3 150-450 LL Results called to [id number] by V.LAB.HD1 08/11/19 1158Critical results verified and [...] = MDIFF) NO, ONLY SCAN NEEDED DIFFERENTIAL [id number] 12:29:00* Test Item Value Reference Range Interpretation Comments STAIN ACCEPTABILITY (test code = STN ACCEPTABLE) STAIN ACCEPTABLE POIKILOCYTOSIS (test code = POIK) 1+ PLATELET ESTIMATE (test code = PLTEST) DECREASED PLATELET MORPHOLOGY (test code = PLTMORPH) NORMAL LACTIC [id number] 12:13:00* Test Item Value Reference Range Interpretation Comments LACTIC ACID (test code = LACT) 3.1 mmol/L 0.4-1.9 HH Results called to [id number] by CHRISTIE 08/11/19 1212Critical results verified and read back by Nurse? Y BASIC METABOLIC [id number] 12:09:00* Test Item Value Reference Range Interpretation [...] code = CA) 9.8 mg/dL 8.5-10.1 N [id number] 12:09:00* Test Item Value Reference Range Interpretation Comments PHOSPHORUS (test code = PHOS) 1.8 mg/dL 2.5-4.9 L [id number] 12:09:00* Test Item Value Reference Range Interpretation Comments MAGNESIUM (test code = MAG) 1.2 mg/dL 1.8-2.4 L BASIC METABOLIC [id number] 12:01:00* Test Item Value Reference Range Interpretation [...] CALCIUM (test code = CA) mg/dL 8.5-10.1 [id number] 12:01:00* Test Item Value Reference Range Interpretation Comments PHOSPHORUS (test code = PHOS) mg/dL 2.5-4.9 [id number] 12:01:00* Test Item Value Reference Range Interpretation Comments MAGNESIUM (test code = MAG) mg/dL 1.8-2.4 CBC W/AUTO [id number] 11:59:00* Test Item Value Reference Range Interpretation [...] 37 K/mm3 150-450 LL Results called to [id number] by V.LAB.HD1 08/11/19 1158Critical results verified and [...] = MDIFF) NO, ONLY SCAN NEEDED DIFFERENTIAL [id number] 11:59:00* Test Item Value Reference Range Interpretation Comments STAIN ACCEPTABILITY (test code = STN ACCEPTABLE) CABOT RINGS (test code = CAB) MORPHOLOGY COMMENT (test code = MOC) PLATELET ESTIMATE (test code = PLTEST) PLATELET MORPHOLOGY (test code = PLTMORPH) CBC W/AUTO [id number] 11:59:00* Test Item Value Reference Range Interpretation [...] 37 K/mm3 150-450 LL Results called to [place] [address] by LookUP.LAB.HD1 08/11/19 1158Critical results verified and read back [...] = MDIFF) NO, ONLY SCAN NEEDED DIFFERENTIAL [id number] 11:59:00* Test Item Value Reference Range Interpretation Comments STAIN ACCEPTABILITY (test code = STN ACCEPTABLE) CABOT RINGS (test code = CAB) MORPHOLOGY COMMENT (test code = MOC) PLATELET ESTIMATE (test code = PLTEST) PLATELET MORPHOLOGY (test code = PLTMORPH) CBC W/AUTO [id number] 11:59:00* Test Item Value Reference Range Interpretation [...] 37 K/mm3 150-450 LL Results called to [id number] by WhitetruffleLAB.HD1 08/11/19 1158Critical results verified and read back [...] = MDIFF) NO, ONLY SCAN NEEDED DIFFERENTIAL [id number] 11:59:00* Test Item Value Reference Range Interpretation Comments STAIN ACCEPTABILITY (test code = STN ACCEPTABLE) MORPHOLOGY COMMENT (test code = MOC) PLATELET ESTIMATE (test code = PLTEST) PLATELET MORPHOLOGY (test code = PLTMORPH) CBC W/AUTO [id number] 11:59:00* Test Item Value Reference Range Interpretation [...] 37 K/mm3 150-450 LL Results called to [id number] by V.LAB.HD1 08/11/19 1158Critical results verified and [...] = MDIFF) NO, ONLY SCAN NEEDED DIFFERENTIAL [id number] 11:59:00* Test Item Value Reference Range Interpretation Comments STAIN ACCEPTABILITY (test code = STN ACCEPTABLE) CABOT RINGS (test code = CAB) MORPHOLOGY COMMENT (test code = MOC) PLATELET ESTIMATE (test code = PLTEST) PLATELET MORPHOLOGY (test code = PLTMORPH) [id number] 11:49:00* Test Item Value Reference Range Interpretation Comments GLUBED (test code = GLUBED) 187 mg/dL 74-106 H Performed by certified tunnel elastic operator lockstitch at [facility] [id number] 09:25:00* Test Item Value Reference Range Interpretation Comments GLUBED (test code = GLUBED) 214 mg/dL 74-106 H Performed by certified tunnel elastic operator lockstitch at [facility] CBC W/AUTO [id number] 08:44:00* Test Item Value Reference Range Interpretation [...] 35 K/mm3 150-450 LL Results called to [id number] by AUDREY 08/11/19 0713Critical results verified and [...] = MDIFF) NO, ONLY SCAN NEEDED DIFFERENTIAL [id number] 08:44:00* Test Item Value Reference Range Interpretation Comments STAIN ACCEPTABILITY (test code = STN ACCEPTABLE) STAIN ACCEPTABLE POIKILOCYTOSIS (test code = POIK) 1+ PLATELET ESTIMATE (test code = PLTEST) DECREASED PLATELET MORPHOLOGY (test code = PLTMORPH) NORMAL - CT HEAD/BRAIN W/O [id number] 08:26:00 Name: MOJGAN CUMMINGS [facility] : 1950 Age/S: 69 [facility] [address] [facility] [id number] Loc: [place] [address] Phys: Sam Carrillo MD Acct: [id number] Dis Date: 08/19/2019 Status: DIS IN PHONE #: [phone] Exam Date: 08/11/2019 0740 FAX #: [phone] Reason: CONFUSION EXAMS: CPT CODE: [id number] CT HEAD/BRAIN W/O CONT 02739 EXAM: CT of the head without contrast; [...] (825) HarryGRW Orig Print D/T: S: 08/11/2019 (828) PAGE 1 Signed Report - CT HEAD/BRAIN W/O [id number] 08:26:00 Name: MOJGAN CUMMINGS [facility] : 1950 Age/S: 69 / F [address] [facility]: [id number] Loc: [place] [address] Phys: Sam Carrillo MD Acct: [id number] Di s Date: Status: ADM IN PHONE #: Exam Date: 08/11/2019 07 FAX #: Reason: CONFUSION EXAMS: CPT CODE: [id number] CT HEAD/BRAIN W/O CONT 55892 EXAM: CT of the head with out [...] (825) HarryGRW Orig Print D/T: S: 08/11/2019 (828) PAGE 1 Signed Report - CT HEAD/BRAIN W/O [id number] 08:26:00 Name: MOJGAN CUMMINGS [facility] : 1950 Age/S: 69 / F [address] Unit #: [id number] Loc: [place] [address] Phys: Sam Carrillo MD Acct: [id number] Di s Date: 08/19/2019 Status: DIS IN PHONE #: [phone] Exam Date: 08/11/2019 0730 FAX #: Reason: CONFUSION EXAMS: CPT CODE: [id number] CT HEAD/BRAIN W/O CONT 82833 EXAM: CT of the head with out [...] (828) PAGE 1 Signed Report B-TYPE NATRIURETIC [id number] 08:00:00* Test Item Value Reference Range Interpretation Comments B-TYPE NATRIURETIC PEPTIDE (test code = BNP) 86.81 pgram/mL 0-100 N URINALYSIS [id number] 07:55:00* Test Item Value Reference Range Interpretation [...] Urine Source? Clean CatchDRUGS OF ABUSE SCREEN [id number] 07:55:00* Test Item Value Reference Range Interpretation [...] NEGATIVE <300 ng/mL Urine Source? Clean CatchPROTHROMBIN [id number] 07:28:00* Test Item Value Reference Range Interpretation [...] (2.5-3.5) IS PATIENT ON ANTICOAGULANTS? NTHROMBOPLASTIN TIME [id number] 07:28:00* Test Item Value Reference Range Interpretation Comments THROMBOPLASTIN TIME PARTIAL (test code = PTT) 31.3 seconds 25.0-36. 5 N IS PATIENT ON ANTICOAGULANTS? NLACTIC [id number] 07:28:00* Test Item Value Reference Range Interpretation Comments LACTIC ACID (test code = LACT) 6.5 mmol/L 0.4-1.9 HH Results called to DR.AGBABIAKAby DOWLING 08/11/19 0728Critical results verified and read back by Nurse? Y URINALYSIS [id number] 07:23:00* Test Item Value Reference Range Interpretation [...] Urine Source? Clean CatchDRUGS OF ABUSE SCREEN [id number] 07:23:00* Test Item Value Reference Range Interpretation [...] [place]) <300 ng/mL Urine Source? Clean CatchURINALYSIS [id number] 07:21:00* Test Item Value Reference Range Interpretation [...] Urine Source? Clean CatchDRUGS OF ABUSE SCREEN [id number] 07:21:00* Test Item Value Reference Range Interpretation [...] <300 ng/mL Urine Source? Clean CatchBASIC METABOLIC [id number] 07:19:00* Test Item Value Reference Range Interpretation [...] CA) 9.3 mg/dL 8.5-10.1 N HEPATIC FUNCTION [id number] 07:19:00* Test Item Value Reference Range Interpretation [...] code = CK) 150 IUnit/L 26-208 N [id number] 07:19:00* Test Item Value Reference Range Interpretation Comments LIPASE (test code = LIP) 12 U/L 73.0-393.0 L [id number] 07:19:00* Test Item Value Reference Range Interpretation Comments MAGNESIUM (test code = MAG) 1.7 mg/dL 1.8-2.4 L [id number] 07:19:00* Test Item Value Reference Range Interpretation Comments TROPONIN-I (test code = TROPI) <0.015 ng/mL 0-0.045 N [id number] 07:19:00* Test Item Value Reference Range Interpretation Comments ACETAMINOPHEN (test code = ACET) < 10 mcg/mL 10-30 L A RANGE OF 10-30 mcg/mL IS A THERAPEUTIC RANGE. TOXIC CONCENTRATIONS: >150 mcg/mL AT 4 HOURS AFTER INGESTION >= 50 mcg/mL AT 12 HOURS AFTER INGESTION [id number] 07:19:00* Test Item Value Reference Range Interpretation Comments SALICYLATE (test code = DANNA) < 1.7 mg/dL 2.8-20.0 L [id number] 07:19:00* Test Item Value Reference Range Interpretation Comments ALCOHOL (test code = ALC) < 3 mg/dL 0.0-3.0 N -- INTERPRETIVE DATA NOTE: POSITIVE SCREENING RESULTS SHOULD BE CONSIDERED PRESUMPTIVE.WHEN COLLECTED FOR MEDICAL PURPOSES ONLY. SPECIMEN WILL NOTBE COLLECTED BY CHAIN OF CUSTODY.IF A CONFIRMATION OF POSITIVE RESULTS IS DESIRED, ACONFIRMATION TEST MUST BE REQUESTED BY THE PHYSICIAN AT ANADDITIONAL CHARGE TO THE PATIENT. [id number] 07:15:00* Test Item Value Reference Range Interpretation Comments AMMONIA (test code = AMM) 29 umol/L 11-32 N CBC W/AUTO [id number] 07:13:00* Test Item Value Reference Range Interpretation [...] 35 K/mm3 150-450 LL Results called to [id number] by AUDREY 08/11/19 0713Critical results verified and [...] = MDIFF) NO, ONLY SCAN NEEDED DIFFERENTIAL [id number] 07:13:00* Test Item Value Reference Range Interpretation Comments STAIN ACCEPTABILITY (test code = STN ACCEPTABLE) CABOT RINGS (test code = CAB) MORPHOLOGY COMMENT (test code = MOC) PLATELET ESTIMATE (test code = PLTEST) PLATELET MORPHOLOGY (test code = PLTMORPH) CBC W/AUTO [id number] 07:13:00* Test Item Value Reference Range Interpretation [...] 35 K/mm3 150-450 LL Results called to [id number] by V.LAB.AUBREE 08/11/19 0713Critical results verified and [...] = MDIFF) NO, ONLY SCAN NEEDED DIFFERENTIAL [id number] 07:13:00* Test Item Value Reference Range Interpretation Comments STAIN ACCEPTABILITY (test code = STN ACCEPTABLE) CABOT RINGS (test code = CAB) MORPHOLOGY COMMENT (test code = MOC) PLATELET ESTIMATE (test code = PLTEST) PLATELET MORPHOLOGY (test code = PLTMORPH) CBC W/AUTO [id number] 07:13:00* Test Item Value Reference Range Interpretation [...] 35 K/mm3 150-450 LL Results called to [id number] by AUDREY 08/11/19 0713Critical results verified and [...] = MDIFF) NO, ONLY SCAN NEEDED DIFFERENTIAL [id number] 07:13:00* Test Item Value Reference Range Interpretation Comments STAIN ACCEPTABILITY (test code = STN ACCEPTABLE) MORPHOLOGY COMMENT (test code = MOC) PLATELET ESTIMATE (test code = PLTEST) PLATELET MORPHOLOGY (test code = PLTMORPH) CBC W/AUTO [id number] 07:13:00* Test Item Value Reference Range Interpretation [...] 35 K/mm3 150-450 LL Results called to [id number] by AUDREY 08/11/19 0713Critical results verified and [...] = MDIFF) NO, ONLY SCAN NEEDED DIFFERENTIAL [id number] 07:13:00* Test Item Value Reference Range Interpretation Comments STAIN ACCEPTABILITY (test code = STN ACCEPTABLE) CABOT RINGS (test code = CAB) MORPHOLOGY COMMENT (test code = MOC) PLATELET ESTIMATE (test code = PLTEST) PLATELET MORPHOLOGY (test code = PLTMORPH) BASIC METABOLIC [id number] 07:12:00* Test Item Value Reference Range Interpretation [...] code = CA) mg/dL 8.5-10.1 HEPATIC FUNCTION [id number] 07:12:00* Test Item Value Reference Range Interpretation [...] (CK) (test code = CK) IUnit/L 26-208 [id number] 07:12:00* Test Item Value Reference Range Interpretation Comments LIPASE (test code = LIP) U/L 73.0-393.0 [id number] 07:12:00* Test Item Value Reference Range Interpretation Comments MAGNESIUM (test code = MAG) mg/dL 1.8-2.4 [id number] 07:12:00* Test Item Value Reference Range Interpretation Comments TROPONIN-I (test code = TROPI) ng/mL 0-0.045 [id number] 07:12:00* Test Item Value Reference Range Interpretation Comments ACETAMINOPHEN (test code = ACET) mcg/mL 10-30 [id number] 07:12:00* Test Item Value Reference Range Interpretation Comments SALICYLATE (test code = DANNA) mg/dL 2.8-20.0 [id number] 07:12:00* Test Item Value Reference Range Interpretation Comments ALCOHOL (test code = ALC) mg/dL 0-3 - XR CHEST 1 [id number] 06:57:00 FAX: Sam Rosado [phone] [place]: B St: DIS Name: MOJGAN SAUCEDO [facility] : [birth year] Age/S: 69/F [address] [facility] Unit #: [id number] Loc: V.2078 [place] [address] Phys: Sam Carrillo MD Acct: [id number] Dis Date: [id number] Status: DIS IN PHONE #: [phone] Exam Date: 08/11/201931 FAX #: [phone] Reason: SHORTNESS OF BREATH EXAMS: CPT CODE: [id number] XR CHEST 1 V 33839 EXAM: - XR CHEST 1 V HISTORY: [...] No consolidation or effusion. * * at 9630 Reported and signed by: Mahendra Amos MD CC: Sam Yancey MD Technologist: Wicho Herring RT(R) Trnscrd Date/Time/By: 08/11/2019 (065 7) : By: [email or web address] Orig Print D/T: S: 08/11/2019 (2977) PAGE 1 Signed Report - XR CHEST 1 [id number] 06:57:00 FAX: Sam Rosado [phone] [place]: St: REG Name: MOJGAN SAUCEDO [facility] : [birth year] Age/S: 69/F [address] Unit #: [id number] Loc: [place] [address] Phys: Sam Carrillo MD Acct: [id number] Dis Date: Status: REG ER PHONE #: [phone] Exam Date: 08/11/2019630 FAX #: [phone] Reason: SHORTNESS OF BREATH EXAMS: CPT CODE: [id number] XR CHEST 1 V 65045 EXAM: - XR CHEST 1 V HISTORY: [...] No consolidation or effusion. * * at 0667 Reported and signed by: Mahendra Amos MD CC: Sam Yancey MD Technologist: Wicho Herring RT(R) Trnmird Date/Time/By: 08/11/2019 (065 7) : By: [email or web address] Orig Print D/T: S: 08/11/2019 (5677) PAGE 1 Signed Report - XR CHEST 1 [id number] 06:57:00 FAX: Sam Rosado [phone] [place]: St: DIS Name: MOJGAN SAUCEDO [facility] : [birth year] Age/S: 69/F [address] [facility] Unit #: [id number] Loc: V.9 [place] [address] Phys: Sam Carrillo MD Acct: [id number] Dis Date: 1901020 Status: DIS IN PHONE #: [phone] Exam Date: 08/11/2019630 FAX #: [phone] Reason: SHORTNESS OF BREATH EXAMS: CPT CODE: [id number] XR CHEST 1 V 54887 EXAM: - XR CHEST 1 V HISTORY: [...] By: [email or web address] Orig Print D/T: S: 08/11/2019 (9915) PAGE 1 Signed Report [id number] 06:37:00* Test Item Value Reference Range Interpretation Comments GLUBED (test code = GLUBED) 193 mg/dL 74-106 H Performed by certified tunnel elastic operator lockstitch at [facility] CBC W/AUTO [id number] 11:41:00* Test Item Value Reference Range Interpretation [...] 44 K/mm3 150-450 LL Results called to [id number] by FERNANDO 08/06/19 1010Critical results verified and [...] = MDIFF) NO, ONLY SCAN NEEDED DIFFERENTIAL [id number] 11:41:00* Test Item Value Reference Range Interpretation Comments STAIN ACCEPTABILITY (test code = STN ACCEPTABLE) STAIN ACCEPTABLE PLATELET ESTIMATE (test code = PLTEST) DECREASED PLATELET MORPHOLOGY (test code = PLTMORPH) NORMAL CBC W/AUTO [id number] 10:11:00* Test Item Value Reference Range Interpretation [...] 44 K/mm3 150-450 LL Results called to [id number] by [facility] 08/06/19 1010Critical results verified and read back [...] = MDIFF) NO, ONLY SCAN NEEDED DIFFERENTIAL [id number] 10:11:00* Test Item Value Reference Range Interpretation Comments STAIN ACCEPTABILITY (test code = STN ACCEPTABLE) CABOT RINGS (test code = CAB) MORPHOLOGY COMMENT (test code = MOC) PLATELET ESTIMATE (test code = PLTEST) PLATELET MORPHOLOGY (test code = PLTMORPH) CBC W/AUTO [id number] 10:11:00* Test Item Value Reference Range Interpretation [...] 44 K/mm3 150-450 LL Results called to [id number] by FERNANDO 08/06/19 1010Critical results verified and [...] = MDIFF) NO, ONLY SCAN NEEDED DIFFERENTIAL [id number] 10:11:00* Test Item Value Reference Range Interpretation Comments STAIN ACCEPTABILITY (test code = STN ACCEPTABLE) MORPHOLOGY COMMENT (test code = MOC) PLATELET ESTIMATE (test code = PLTEST) PLATELET MORPHOLOGY (test code = PLTMORPH) CBC W/AUTO [id number] 10:11:00* Test Item Value Reference Range Interpretation [...] 44 K/mm3 150-450 LL Results called to [id number] by DELMA.MANDI 08/06/19 1010Critical results verified and read back [...] = MDIFF) NO, ONLY SCAN NEEDED DIFFERENTIAL [id number] 10:11:00* Test Item Value Reference Range Interpretation Comments STAIN ACCEPTABILITY (test code = STN ACCEPTABLE) MORPHOLOGY COMMENT (test code = MOC) PLATELET ESTIMATE (test code = PLTEST) PLATELET MORPHOLOGY (test code = PLTMORPH) CBC W/AUTO [id number] 10:11:00* Test Item Value Reference Range Interpretation [...] 44 K/mm3 150-450 LL Results called to [id number] by [facility] 08/06/19 1010Critical results verified and read back [...] = MDIFF) NO, ONLY SCAN NEEDED DIFFERENTIAL [id number] 10:11:00* Test Item Value Reference Range Interpretation Comments STAIN ACCEPTABILITY (test code = STN ACCEPTABLE) CABOT RINGS (test code = CAB) MORPHOLOGY COMMENT (test code = MOC) PLATELET ESTIMATE (test code = PLTEST) PLATELET MORPHOLOGY (test code = PLTMORPH) CBC W/AUTO [id number] 06:58:00* Test Item Value Reference Range Interpretation [...] 39 K/mm3 150-450 LL Results called to [id number] by [facility].LAB.AG1 08/04/19 0633Critical results verified and read back [...] = MDIFF) NO, ONLY SCAN NEEDED DIFFERENTIAL [id number] 06:58:00* Test Item Value Reference Range Interpretation Comments STAIN ACCEPTABILITY (test code = STN ACCEPTABLE) STAIN ACCEPTABLE PLATELET ESTIMATE (test code = PLTEST) DECREASED PLATELET MORPHOLOGY (test code = PLTMORPH) NORMAL CBC W/AUTO [id number] 06:34:00* Test Item Value Reference Range Interpretation [...] 39 K/mm3 150-450 LL Results called to [id number] by VFayeLAB.AG1 08/04/19 0633Critical results verified and read back [...] = MDIFF) NO, ONLY SCAN NEEDED DIFFERENTIAL [id number] 06:34:00* Test Item Value Reference Range Interpretation Comments STAIN ACCEPTABILITY (test code = STN ACCEPTABLE) CABOT RINGS (test code = CAB) MORPHOLOGY COMMENT (test code = MOC) PLATELET ESTIMATE (test code = PLTEST) PLATELET MORPHOLOGY (test code = PLTMORPH) CBC W/AUTO [id number] 06:34:00* Test Item Value Reference Range Interpretation [...] 39 K/mm3 150-450 LL Results called to [id number] by WhitetruffleLAB.AG1 08/04/19 0633Critical results verified and read back [...] = MDIFF) NO, ONLY SCAN NEEDED DIFFERENTIAL [id number] 06:34:00* Test Item Value Reference Range Interpretation Comments STAIN ACCEPTABILITY (test code = STN ACCEPTABLE) CABOT RINGS (test code = CAB) MORPHOLOGY COMMENT (test code = MOC) PLATELET ESTIMATE (test code = PLTEST) PLATELET MORPHOLOGY (test code = PLTMORPH) CBC W/AUTO [id number] 06:34:00* Test Item Value Reference Range Interpretation [...] 39 K/mm3 150-450 LL Results called to [id number] by [facility].LAB.AG1 08/04/19 0633Critical results verified and read back [...] = MDIFF) NO, ONLY SCAN NEEDED DIFFERENTIAL [id number] 06:34:00* Test Item Value Reference Range Interpretation Comments STAIN ACCEPTABILITY (test code = STN ACCEPTABLE) MORPHOLOGY COMMENT (test code = MOC) PLATELET ESTIMATE (test code = PLTEST) PLATELET MORPHOLOGY (test code = PLTMORPH) CBC W/AUTO [id number] 06:34:00* Test Item Value Reference Range Interpretation [...] 39 K/mm3 150-450 LL Results called to [id number] by DELMA.AG1 08/04/19 0633Critical results verified and [...] = MDIFF) NO, ONLY SCAN NEEDED DIFFERENTIAL [id number] 06:34:00* Test Item Value Reference Range Interpretation Comments STAIN ACCEPTABILITY (test code = STN ACCEPTABLE) CABOT RINGS (test code = CAB) MORPHOLOGY COMMENT (test code = MOC) PLATELET ESTIMATE (test code = PLTEST) PLATELET MORPHOLOGY (test code = PLTMORPH) BASIC METABOLIC [id number] 06:33:00* Test Item Value Reference Range Interpretation [...] CA) 9.9 mg/dL 8.5-10.1 N BASIC METABOLIC [id number] 06:27:00* Test Item Value Reference Range Interpretation [...] code = CA) mg/dL 8.5-10.1 CBC W/AUTO [id number] 10:37:00* Test Item Value Reference Range Interpretation [...] 35 K/mm3 150-450 LL Results called to [id number] by AUDREY 08/02/19 0813Critical results verified and [...] = MDIFF) NO, ONLY SCAN NEEDED DIFFERENTIAL [id number] 10:37:00* Test Item Value Reference Range Interpretation Comments STAIN ACCEPTABILITY (test code = STN ACCEPTABLE) STAIN ACCEPTABLE POIKILOCYTOSIS (test code = POIK) 1+ ANISOCYTOSIS (test code = ANISO) 1+ PLATELET ESTIMATE (test code = PLTEST) DECREASED PLATELET MORPHOLOGY (test code = PLTMORPH) NORMAL BASIC METABOLIC [id number] 08:17:00* Test Item Value Reference Range Interpretation [...] code = CA) 9.6 mg/dL 8.5-10.1 N [id number] 08:17:00* Test Item Value Reference Range Interpretation Comments PHOSPHORUS (test code = PHOS) 2.4 mg/dL 2.5-4.9 L [id number] 08:17:00* Test Item Value Reference Range Interpretation Comments MAGNESIUM (test code = MAG) 1.5 mg/dL 1.8-2.4 L CALCIUM [id number] 08:17:00* Test Item Value Reference Range Interpretation Comments CALCIUM IONIZED (test code = ERICH) 1.34 mmol/L 1.12-1.32 H CBC W/AUTO [id number] 08:14:00* Test Item Value Reference Range Interpretation [...] 35 K/mm3 150-450 LL Results called to [id number] by V.LAB.AUBREE 08/02/19 0813Critical results verified and [...] = MDIFF) NO, ONLY SCAN NEEDED DIFFERENTIAL [id number] 08:14:00* Test Item Value Reference Range Interpretation Comments STAIN ACCEPTABILITY (test code = STN ACCEPTABLE) MORPHOLOGY COMMENT (test code = MOC) PLATELET ESTIMATE (test code = PLTEST) PLATELET MORPHOLOGY (test code = PLTMORPH) CBC W/AUTO [id number] 08:13:00* Test Item Value Reference Range Interpretation [...] 35 K/mm3 150-450 LL Results called to [id number] by AUDREY 08/02/19 0813Critical results verified and [...] = MDIFF) NO, ONLY SCAN NEEDED DIFFERENTIAL [id number] 08:13:00* Test Item Value Reference Range Interpretation Comments STAIN ACCEPTABILITY (test code = STN ACCEPTABLE) CABOT RINGS (test code = CAB) MORPHOLOGY COMMENT (test code = MOC) PLATELET ESTIMATE (test code = PLTEST) PLATELET MORPHOLOGY (test code = PLTMORPH) CBC W/AUTO [id number] 08:13:00* Test Item Value Reference Range Interpretation [...] 35 K/mm3 150-450 LL Results called to [id number] by AUDREY 08/02/19 0813Critical results verified and [...] = MDIFF) NO, ONLY SCAN NEEDED DIFFERENTIAL [id number] 08:13:00* Test Item Value Reference Range Interpretation Comments STAIN ACCEPTABILITY (test code = STN ACCEPTABLE) MORPHOLOGY COMMENT (test code = MOC) PLATELET ESTIMATE (test code = PLTEST) PLATELET MORPHOLOGY (test code = PLTMORPH) CBC W/AUTO [id number] 08:13:00* Test Item Value Reference Range Interpretation [...] 35 K/mm3 150-450 LL Results called to [id number] by DELMA.AUBREE 08/02/19 0813Critical results verified and [...] = MDIFF) NO, ONLY SCAN NEEDED DIFFERENTIAL [id number] 08:13:00* Test Item Value Reference Range Interpretation Comments STAIN ACCEPTABILITY (test code = STN ACCEPTABLE) CABOT RINGS (test code = CAB) MORPHOLOGY COMMENT (test code = MOC) PLATELET ESTIMATE (test code = PLTEST) PLATELET MORPHOLOGY (test code = PLTMORPH) BASIC METABOLIC [id number] 08:11:00* Test Item Value Reference Range Interpretation [...] CALCIUM (test code = CA) mg/dL 8.5-10.1 [id number] 08:11:00* Test Item Value Reference Range Interpretation Comments PHOSPHORUS (test code = PHOS) mg/dL 2.5-4.9 [id number] 08:11:00* Test Item Value Reference Range Interpretation Comments MAGNESIUM (test code = MAG) mg/dL 1.8-2.4 CALCIUM [id number] 08:11:00* Test Item Value Reference Range Interpretation Comments CALCIUM IONIZED (test code = ERICH) 1.34 mmol/L 1.12-1.32 H BASIC METABOLIC [id number] 08:09:00* Test Item Value Reference Range Interpretation [...] CALCIUM (test code = CA) mg/dL 8.5-10.1 [id number] 08:09:00* Test Item Value Reference Range Interpretation Comments PHOSPHORUS (test code = PHOS) mg/dL 2.5-4.9 [id number] 08:09:00* Test Item Value Reference Range Interpretation Comments MAGNESIUM (test code = MAG) mg/dL 1.8-2.4 CALCIUM [id number] 08:09:00* Test Item Value Reference Range Interpretation Comments CALCIUM IONIZED (test code = ERICH) mmol/L 1.12-1.32 - XR CHEST 1 [id number] 08:02:00 FAX: Justin Doran [place]: B St: ADM FAX: Ilan Holt MD Name: MARCELA CUMMINGS [facility] : 1950 Age/S: 69/F [address] [facility] Unit #: [id number] Loc: V.2080 [place] [address] Phys: Justin Doran Acct: [id number] Dis Date: Status: ADM IN PHONE #: [phone] Exam Date: 08/02/2019754 FAX #: [phone] Reason: Respiratory Failure EXAMS: CPT CODE: [id number] XR CHEST 1 V 16837 CLINICAL HISTORY: Respiratory Failure TECHNIQUE: AP chest [...] 1 Signed Report - XR CHEST 1 [id number] 08:02:00 FAX: Jsutin Doran [place]: B St: DIS FAX: Ilan Holt MD Name: MOJGAN CUMMINGS [facility] : 1950 Age/S: 69/F [address] Unit #: [id number] Loc: V.2080 [place], [place] [address] Phys: Justin Doran Acct: [id number] Dis Date: [id number] Status: DIS IN PHONE #: [phone] Exam Date: 08/02/2019754 FAX #: [phone] Reason: Respiratory Failure EXAMS: CPT CODE: [id number] XR CHEST 1 V 12867 CLINICAL HISTORY: Respiratory Failure TECHNIQUE: AP chest x-ray COMPARISON: Previous day. IMPRESSION: Resolved right basilar subsegmental atelectasis. No airspace consolidation or pleural effusion. Normal heart size. Tracheostomy tube. LOCATION: LP at 0802 Reported and signed by: Lenka Farrar D.O. CC: Justin Doran; Ilan Stein Technologist: JEREMIE JAUREGUI) Trnscrd Date/Time/By: 9 (0802) : By: [email or web address] Orig Print D/T: S: 08/02/2019 (1815) PAGE 1 Signed Report PROTHROMBIN [id number] 15:09:00* Test Item Value Reference Range Interpretation [...] Mechanical prosthetic heart valves (2.5-3.5) THROMBOPLASTIN TIME [id number] 15:09:00* Test Item Value Reference Range Interpretation Comments THROMBOPLASTIN TIME PARTIAL (test code = PTT) 32.1 seconds 25.0-36. 5 N [id number] 15:09:00* Test Item Value Reference Range Interpretation Comments FIBRINOGEN (test code = FIB) 316 mg/dL 200-400 N FIBRIN SPLIT [id number] 15:09:00* Test Item Value Reference Range Interpretation Comments FIBRIN SPLIT PRODUCT (test code = FSP) <5 ug/mL <5 Performed At: [facility] [id number] Santoyo MD Ph:[phone] [id number] 15:09:00* Test Item Value Reference Range Interpretation Comments D-DIMER (test code = DDIMER) 583.00 ng/mLFEU 0-500 HH Results called to [id number] by IVANA 07/30/19 1102Critical results verified and [...] activity levels possibly masking a deficiency.Performed At: [facility] [id number] Santoyo MD Ph:[phone] PROTHROMBIN [id number] 09:10:00* Test Item Value Reference Range Interpretation [...] Mechanical prosthetic heart valves (2.5-3.5) THROMBOPLASTIN TIME [id number] 09:10:00* Test Item Value Reference Range Interpretation Comments THROMBOPLASTIN TIME PARTIAL (test code = PTT) 32.1 seconds 25.0-36. 5 N [id number] 09:10:00* Test Item Value Reference Range Interpretation Comments FIBRINOGEN (test code = FIB) 316 mg/dL 200-400 N FIBRIN SPLIT [id number] 09:10:00* Test Item Value Reference Range Interpretation Comments FIBRIN SPLIT PRODUCT (test code = FSP) mcg/mL <5 [id number] 09:10:00* Test Item Value Reference Range Interpretation Comments D-DIMER (test code = DDIMER) 583.00 ng/mLFEU 0-500 HH Results called to [id number] by IVANA 07/30/19 1102Critical results verified and [...] activity levels possibly masking a deficiency.Performed At: [facility] [id number] Sanjai MD Ph:[phone] - XR CHEST 1 [id number] 06:36:00 FAX: Justin Doran [place]: St: [facility] FAX: Ilan Holt MD Name: MARCELA CUMMINGS [facility] : 1950 Age/S: 69/F [address] [facility] Unit #: [id number] Loc: V.2080 [place] [address] Phys: Justin Doran Acct: [id number] Dis Date: Status: ADM IN PHONE #: [phone] Exam Date: 08/01/2019 0535 FAX #: [phone] Reason: Respiratory Failure EXAMS: CPT CODE: [id number] XR CHEST 1 V 82155 CLINICAL HISTORY: Respiratory Failure TECHNIQUE: AP chest x-ray COMPARISON: Previous day. IMPRESSION: No significant interval change. Mild right basilar subsegmental atelectasis. No pleural effusion. Normal heart size. Tracheostomy tube. LOCATION: at 0636 Reported and signed by: Lenka Farrar D.O. CC: Justin Mullins; Ilan Stein Technologist: OCTAVIO VASQUEZ JR; Abigail Darling Trnmird Date/Time/By: 08/01/2019 (36 ) : By: [email or web address] Orig Print D/T: S: 08/01/2019 (9016) PAGE 1 Signed Report - XR CHEST 1 [id number] 06:36:00 FAX: Justin Doran [place]: St: DIS FAX: Y Ilan Stein MD Name: MOJGAN CUMMINGS [facility] : 1950 Age/S: 69/F [address] [facility] Unit #: [id number] Loc: V.2080 [place] [address] Phys: Justin Doran Acct: [id number] Dis Date: [id number] Status: DIS IN PHONE #: [phone] Exam Date: 08/01/2019 0535 FAX #: [phone] Reason: Respiratory Failure EXAMS: CPT CODE: [id number] XR CHEST 1 V 86473 CLINICAL HISTORY: Respiratory Failure TECHNIQUE: AP chest x-ray COMPARISON: Previous day. IMPRESSION: No significant interval change. Mild right basilar subsegmental atelectasis. No pleural effusion. Normal heart size. Tracheostomy tube. LOCATION: at 0636 Reported and signed by: Lenka Farrar D.O. CC: Justin Mullins; Ilan Stein Technologist: OCTAVIO VASQUEZ JR; Abigail Darling Trnscrd Date/Time/By: 08/01/2019 (36 ) : By: [email or web address] Orig Print D/T: S: 08/01/2019 (0636) PAGE 1 Signed Report CBC W/AUTO [id number] 05:04:00* Test Item Value Reference Range Interpretation [...] 27 K/mm3 150-450 LL Results called to [id number] by DELMA.AG1 08/01/19 0450Critical results verified and [...] = MDIFF) NO, ONLY SCAN NEEDED DIFFERENTIAL [id number] 05:04:00* Test Item Value Reference Range Interpretation Comments STAIN ACCEPTABILITY (test code = STN ACCEPTABLE) STAIN ACCEPTABLE PLATELET ESTIMATE (test code = PLTEST) DECREASED PLATELET MORPHOLOGY (test code = PLTMORPH) NORMAL BASIC METABOLIC [id number] 05:03:00* Test Item Value Reference Range Interpretation [...] code = CA) 9.2 mg/dL 8.5-10.1 N [id number] 05:03:00* Test Item Value Reference Range Interpretation Comments PHOSPHORUS (test code = PHOS) 2.6 mg/dL 2.5-4.9 N [id number] 05:03:00* Test Item Value Reference Range Interpretation Comments MAGNESIUM (test code = MAG) 2.2 mg/dL 1.8-2.4 N CALCIUM [id number] 05:03:00* Test Item Value Reference Range Interpretation Comments CALCIUM IONIZED (test code = ERICH) 1.36 mmol/L 1.12-1.32 H BASIC METABOLIC [id number] 04:58:00* Test Item Value Reference Range Interpretation [...] code = CA) 9.2 mg/dL 8.5-10.1 N [id number] 04:58:00* Test Item Value Reference Range Interpretation Comments PHOSPHORUS (test code = PHOS) 2.6 mg/dL 2.5-4.9 N [id number] 04:58:00* Test Item Value Reference Range Interpretation Comments MAGNESIUM (test code = MAG) 2.2 mg/dL 1.8-2.4 N CALCIUM [id number] 04:58:00* Test Item Value Reference Range Interpretation Comments CALCIUM IONIZED (test code = ERICH) mmol/L 1.12-1.32 BASIC METABOLIC [id number] 04:53:00* Test Item Value Reference Range Interpretation [...] CALCIUM (test code = CA) mg/dL 8.5-10.1 [id number] 04:53:00* Test Item Value Reference Range Interpretation Comments PHOSPHORUS (test code = PHOS) mg/dL 2.5-4.9 [id number] 04:53:00* Test Item Value Reference Range Interpretation Comments MAGNESIUM (test code = MAG) mg/dL 1.8-2.4 CALCIUM [id number] 04:53:00* Test Item Value Reference Range Interpretation Comments CALCIUM IONIZED (test code = ERICH) mmol/L 1.12-1.32 CBC W/AUTO [id number] 04:50:00* Test Item Value Reference Range Interpretation [...] 27 K/mm3 150-450 LL Results called to [id number] by V.LAB.AG1 08/01/19 0450Critical results verified and [...] = MDIFF) NO, ONLY SCAN NEEDED DIFFERENTIAL [id number] 04:50:00* Test Item Value Reference Range Interpretation Comments STAIN ACCEPTABILITY (test code = STN ACCEPTABLE) CABOT RINGS (test code = CAB) MORPHOLOGY COMMENT (test code = MOC) PLATELET ESTIMATE (test code = PLTEST) PLATELET MORPHOLOGY (test code = PLTMORPH) CBC W/AUTO [id number] 04:50:00* Test Item Value Reference Range Interpretation [...] 27 K/mm3 150-450 LL Results called to [id number] by DELMA.AG1 08/01/19 0450Critical results verified and [...] = MDIFF) NO, ONLY SCAN NEEDED DIFFERENTIAL [id number] 04:50:00* Test Item Value Reference Range Interpretation Comments STAIN ACCEPTABILITY (test code = STN ACCEPTABLE) CABOT RINGS (test code = CAB) MORPHOLOGY COMMENT (test code = MOC) PLATELET ESTIMATE (test code = PLTEST) PLATELET MORPHOLOGY (test code = PLTMORPH) CBC W/AUTO [id number] 04:50:00* Test Item Value Reference Range Interpretation [...] 27 K/mm3 150-450 LL Results called to [id number] by V.LAB.AG1 08/01/19 0450Critical results verified and [...] = MDIFF) NO, ONLY SCAN NEEDED DIFFERENTIAL [id number] 04:50:00* Test Item Value Reference Range Interpretation Comments STAIN ACCEPTABILITY (test code = STN ACCEPTABLE) MORPHOLOGY COMMENT (test code = MOC) PLATELET ESTIMATE (test code = PLTEST) PLATELET MORPHOLOGY (test code = PLTMORPH) CBC W/AUTO [id number] 04:50:00* Test Item Value Reference Range Interpretation [...] 27 K/mm3 150-450 LL Results called to [id number] by Tickade.AG1 08/01/19 0450Critical results verified and read back [...] = MDIFF) NO, ONLY SCAN NEEDED DIFFERENTIAL [id number] 04:50:00* Test Item Value Reference Range Interpretation Comments STAIN ACCEPTABILITY (test code = STN ACCEPTABLE) CABOT RINGS (test code = CAB) MORPHOLOGY COMMENT (test code = MOC) PLATELET ESTIMATE (test code = PLTEST) PLATELET MORPHOLOGY (test code = PLTMORPH) BASIC METABOLIC [id number] 07:59:00* Test Item Value Reference Range Interpretation [...] code = CA) 9.2 mg/dL 8.5-10.1 N [id number] 07:59:00* Test Item Value Reference Range Interpretation Comments PHOSPHORUS (test code = PHOS) 2.4 mg/dL 2.5-4.9 L [id number] 07:59:00* Test Item Value Reference Range Interpretation Comments MAGNESIUM (test code = MAG) 1.4 mg/dL 1.8-2.4 L CALCIUM [id number] 07:59:00* Test Item Value Reference Range Interpretation Comments CALCIUM IONIZED (test code = ERICH) 1.33 mmol/L 1.12-1.32 H BASIC METABOLIC [id number] 06:59:00* Test Item Value Reference Range Interpretation [...] code = CA) 9.2 mg/dL 8.5-10.1 N [id number] 06:59:00* Test Item Value Reference Range Interpretation Comments PHOSPHORUS (test code = PHOS) 2.4 mg/dL 2.5-4.9 L [id number] 06:59:00* Test Item Value Reference Range Interpretation Comments MAGNESIUM (test code = MAG) 1.4 mg/dL 1.8-2.4 L CALCIUM [id number] 06:59:00* Test Item Value Reference Range Interpretation Comments CALCIUM IONIZED (test code = ERICH) mmol/L 1.12-1.32 BASIC METABOLIC [id number] 06:59:00* Test Item Value Reference Range Interpretation [...] code = CA) 9.2 mg/dL 8.5-10.1 N [id number] 06:59:00* Test Item Value Reference Range Interpretation Comments PHOSPHORUS (test code = PHOS) 2.4 mg/dL 2.5-4.9 L [id number] 06:59:00* Test Item Value Reference Range Interpretation Comments MAGNESIUM (test code = MAG) 1.4 mg/dL 1.8-2.4 L CALCIUM [id number] 06:59:00* Test Item Value Reference Range Interpretation Comments CALCIUM IONIZED (test code = ERICH) mmol/L 1.12-1.32 BASIC METABOLIC [id number] 06:58:00* Test Item Value Reference Range Interpretation [...] CALCIUM (test code = CA) mg/dL 8.5-10.1 [id number] 06:58:00* Test Item Value Reference Range Interpretation Comments PHOSPHORUS (test code = PHOS) mg/dL 2.5-4.9 [id number] 06:58:00* Test Item Value Reference Range Interpretation Comments MAGNESIUM (test code = MAG) mg/dL 1.8-2.4 CALCIUM [id number] 06:58:00* Test Item Value Reference Range Interpretation Comments CALCIUM IONIZED (test code = ERICH) mmol/L 1.12-1.32 CBC W/AUTO [id number] 06:52:00* Test Item Value Reference Range Interpretation [...] 26 K/mm3 150-450 LL Results called to [id number] by V.LAB.AG1 07/31/19 0630Critical results verified and [...] = MDIFF) NO, ONLY SCAN NEEDED DIFFERENTIAL [id number] 06:52:00* Test Item Value Reference Range Interpretation Comments STAIN ACCEPTABILITY (test code = STN ACCEPTABLE) STAIN ACCEPTABLE PLATELET ESTIMATE (test code = PLTEST) DECREASED PLATELET MORPHOLOGY (test code = PLTMORPH) NORMAL PROTHROMBIN [id number] 06:33:00* Test Item Value Reference Range Interpretation [...] (2.5-3.5) IS PATIENT ON ANTICOAGULANTS? NTHROMBOPLASTIN TIME [id number] 06:33:00* Test Item Value Reference Range Interpretation Comments THROMBOPLASTIN TIME PARTIAL (test code = PTT) 31.9 seconds 25.0-36. 5 N IS PATIENT ON ANTICOAGULANTS? NCBC W/AUTO [id number] 06:32:00* Test Item Value Reference Range Interpretation [...] 26 K/mm3 150-450 LL Results called to [id number] by V.LAB.AG1 07/31/19 0630Critical results verified and [...] = MDIFF) NO, ONLY SCAN NEEDED DIFFERENTIAL [id number] 06:32:00* Test Item Value Reference Range Interpretation Comments STAIN ACCEPTABILITY (test code = STN ACCEPTABLE) CABOT RINGS (test code = CAB) MORPHOLOGY COMMENT (test code = MOC) PLATELET ESTIMATE (test code = PLTEST) PLATELET MORPHOLOGY (test code = PLTMORPH) CBC W/AUTO [id number] 06:32:00* Test Item Value Reference Range Interpretation [...] 26 K/mm3 150-450 LL Results called to [id number] by CORBYAG1 07/31/19 0630Critical results verified and read back [...] = MDIFF) NO, ONLY SCAN NEEDED DIFFERENTIAL [id number] 06:32:00* Test Item Value Reference Range Interpretation Comments STAIN ACCEPTABILITY (test code = STN ACCEPTABLE) CABOT RINGS (test code = CAB) MORPHOLOGY COMMENT (test code = MOC) PLATELET ESTIMATE (test code = PLTEST) PLATELET MORPHOLOGY (test code = PLTMORPH) CBC W/AUTO [id number] 06:32:00* Test Item Value Reference Range Interpretation [...] 26 K/mm3 150-450 LL Results called to [id number] by LookUPFayeLAB.AG1 07/31/19 0630Critical results verified and read back [...] = MDIFF) NO, ONLY SCAN NEEDED DIFFERENTIAL [id number] 06:32:00* Test Item Value Reference Range Interpretation Comments STAIN ACCEPTABILITY (test code = STN ACCEPTABLE) MORPHOLOGY COMMENT (test code = MOC) PLATELET ESTIMATE (test code = PLTEST) PLATELET MORPHOLOGY (test code = PLTMORPH) CBC W/AUTO [id number] 06:32:00* Test Item Value Reference Range Interpretation [...] 26 K/mm3 150-450 LL Results called to [id number] by V.LAB.AG1 07/31/19 0630Critical results verified and [...] = MDIFF) NO, ONLY SCAN NEEDED DIFFERENTIAL [id number] 06:32:00* Test Item Value Reference Range Interpretation Comments STAIN ACCEPTABILITY (test code = STN ACCEPTABLE) CABOT RINGS (test code = CAB) MORPHOLOGY COMMENT (test code = MOC) PLATELET ESTIMATE (test code = PLTEST) PLATELET MORPHOLOGY (test code = PLTMORPH) - XR CHEST 1 [id number] 06:13:00 FAX: Justin Doran [place]: B St: ADM FAX: Ilan Holt MD Name: MARCELA CUMMINGS [facility] : 1950 Age/S: 69/F [address] Unit #: [id number] Loc: VFayeS24 [place] [address] Phys: Justin Doran Acct: [id number] Dis Date: Status: ADM IN PHONE #: [phone] Exam Date: 07/31/2019516 FAX #: [phone] Reason: Respiratory Failure EXAMS: CPT CODE: [id number] XR CHEST 1 V 82080 CLINICAL HISTORY: Respiratory Failure TECHNIQUE: AP chest [...] 1 Signed Report - XR CHEST 1 [id number] 06:13:00 FAX: Justin Doran [place]: B St: DIS FAX: Y Ilan Stein MD Name: MOJGAN CUMMINGS [facility] : 1950 Age/S: 69/F [address] [facility] Unit #: [id number] Loc: V.2080 [place] [address] Phys: Justin Doran Acct: [id number] Dis Date: [id number] Status: DIS IN PHONE #: [phone] Exam Date: 07/31/2019516 FAX #: [phone] Reason: Respiratory Failure EXAMS: CPT CODE: [id number] XR CHEST 1 V 28165 CLINICAL HISTORY: Respiratory Failure TECHNIQUE: AP chest x-ray COMPARISON: Previous day. IMPRESSION: Improved right basilar subsegmental atelectasis. No pleural effusion. Normal heart size. Tracheostomy tube. LOCATION: LP at 0613 Reported and signed by: Lenka Farrar D.O. CC: Justin Doran; Ilan Stein Technologist: OCTAVIO Darling Trnscrd Date/Time/By: 07/31/2019 (06) : By: [email or web address] Orig Print D/T: S: 07/31/2019 (0644) PAGE 1 Signed Report - RETRO [id number] 14:00:00 Name: MARCELA CUMMINGS [facility] : 1950 Age/S: 69 / F [address] [facility] Unit #: [id number] Loc: [place] [address] Phys: Yobani Prieto MD Acct: [id number] Di s Date: Status: ADM IN PHONE #: Exam Date: 07/30/2019 1212 FAX #: [phone] Reason: pyelonephritis EXAMS: CPT CODE: [id number] RETRO LTD 93928 HISTORY: Pyelonephritis. COMPARISON: Abdominal ultrasound from same day. Loca tion: [facility]. Bilateral renal ultrasound: Both kidneys are free [...] MD Technolo gist: Isa Montoya RT(S), RDMS Trnmib Date/Time: 09/29/2018 (1400) [email or web address] Orig Print D/T: S: 07/30/2019 (9133) Probe: PAGE 1 Signed Rep ort - US RETRO [id number] 14:00:00 Name: MOJGAN CUMMINGS [facility] : 1950 Age/S: 69 / F [address] [facility] Unit #: [id number] Loc: [place] [address] Phys: Yobani Prieto MD Acct: [id number] Di s Date: [id number] Status: DIS IN PHONE #: [phone] Exam Date: 07/30/2019 1212 FAX #: Reason: pyelonephritis EXAMS: CPT CODE: [id number] US RETRO LTD 55983 HISTORY: Pyelonephritis. COMPARISON: Abdominal ultrasound from same [...] M.D. CC: Ilan Stein; Leah Prieto MD [facility]: Isa Montoya RT(S), [facility] Trnscb Date/Time: 09/29/2018 (1400) Nathalie.TH4 Orig Print D/T: S: 07/30/2019 (1409) Probe: PAGE 1 Signed Rep ort [id number] 11:48:00* Test Item Value Reference Range Interpretation Comments PHOSPHORUS (test code = PHOS) 2.5 mg/dL 2.5-4.9 N [id number] 11:48:00* Test Item Value Reference Range Interpretation Comments MAGNESIUM (test code = MAG) 1.7 mg/dL 1.8-2.4 L CALCIUM [id number] 11:48:00* Test Item Value Reference Range Interpretation [...] = FESAT) 26.82 % 13-45 N VITAMIN [id number] 11:33:00* Test Item Value Reference Range Interpretation Comments VITAMIN B12 (test code = VITB12) 394 pg/mL 193-986 N FOLIC [id number] 11:33:00* Test Item Value Reference Range Interpretation Comments FOLIC ACID (test code = FOL) 19.7 ng/mL 3.10-17.50 H [id number] 11:33:00* Test Item Value Reference Range Interpretation Comments FERRITIN (test code = SEBASTIAN) 486 ng/mL 8-388 H - US ABDOMEN [id number] 11:09:00 Name: MARCELA CUMMINGS [facility] : 1950 Age/S: 69 / F [address] [facility] Unit #: [id number] Loc: [place] [address] Phys: Maxime Willis MD Acct: [id number] Dis Date: Status: ADM IN PHONE #: [phone] Exam Date: 07/30/2019905 FAX #: [phone] Reason: abd pain EXAMS: CPT CODE: [id number] US ABDOMEN COMPLETE 51638 HISTORY: Abdominal pain. COMPARISON: None available. Location: [facility]. Note: Study slightly limited due to panic [...] Maxime Willis MD Technologist: Isa Montoya RT(S), [facility] Trnmib Date/Time: 07/30/2019 (1109) t.JOSELYNR.TH4 Orig Print D/T: S: 07/30/2019 (1112) Probe: PAGE 1 Signed Report - US ABDOMEN [id number] 11:09:00 Name: MOJGAN CUMMINGS [facility] : 1950 Age/S: 69 / F [address] [facility] Unit #: [id number] Loc: [place] [address] Phys: Maxime Willis MD Acct: [id number] Dis Date: [id number] Status: DIS IN PHONE #: [phone] Exam Date: 07/30/2019905 FAX #: [phone] Reason: abd pain EXAMS: CPT CODE: [id number] US ABDOMEN COMPLETE 70779 HISTORY: Abdominal pain. COMPARISON: None available. Location: [facility]. Note: Study slightly limited due to panic [...] Maxime Willis MD Technologist: Isa Montoya RT(S), [facility] Trnmib Date/Time: 07/30/2019 (1109) t.SDR.TH4 Orig Print D/T: S: 07/30/2019 (5426) Probe: PAGE 1 Signed Report PROTHROMBIN [id number] 11:07:00* Test Item Value Reference Range Interpretation [...] Mechanical prosthetic heart valves (2.5-3.5) THROMBOPLASTIN TIME [id number] 11:07:00* Test Item Value Reference Range Interpretation Comments THROMBOPLASTIN TIME PARTIAL (test code = PTT) 32.1 seconds 25.0-36. 5 N [id number] 11:07:00* Test Item Value Reference Range Interpretation Comments FIBRINOGEN (test code = FIB) 316 mg/dL 200-400 N FIBRIN SPLIT [id number] 11:07:00* Test Item Value Reference Range Interpretation Comments FIBRIN SPLIT PRODUCT (test code = FSP) mcg/mL <5 [id number] 11:07:00* Test Item Value Reference Range Interpretation Comments D-DIMER (test code = DDIMER) 583.00 ng/mLFEU 0-500 HH Results called to [id number] by IVANA 07/30/19 1102Critical results verified and [...] (ATIII) (test code = AT3) % 75-135 [id number] 10:58:00* Test Item Value Reference Range Interpretation Comments PHOSPHORUS (test code = PHOS) mg/dL 2.5-4.9 [id number] 10:58:00* Test Item Value Reference Range Interpretation Comments MAGNESIUM (test code = MAG) mg/dL 1.8-2.4 CALCIUM [id number] 10:58:00* Test Item Value Reference Range Interpretation Comments CALCIUM IONIZED (test code = ERICH) 1.38 mmol/L 1.12-1.32 H HGB [id number] 10:37:00* Test Item Value Reference Range Interpretation Comments HEMOGLOBIN (test code = HGB) 9.3 gram/dL 11.5-15.5 L RESULT VERIFIED BY REPEAT ANALYSIS HEMATOCRIT (test code = HCT) 30.8 % 36.0-46.0 L - XR CHEST 1 [id number] 07:14:00 FAX: Kian Rogers [phone] [place]: St: [facility] FAX: Ilan Holt MD Name: MARCELA CUMMINGS [facility] : 1950 Age/S: 69/F [address] [facility] Unit #: [id number] Loc: [address] [address] Phys: Kian Rogers Acct: [id number] Dis Date: Status: ADM IN PHONE #: [phone] Exam Date: 07/30/2019 0601 FAX #: [phone] Reason: updated pulm view. EXAMS: CPT CODE: [id number] XR CHEST 1 V 56900 HISTORY: updated pulm view. TECHNIQUE: AP chest [...] By: [email or web address] Orig Print D/T: S: 07/30/2019 (0739) PAGE 1 Signed Report - XR CHEST 1 [id number] 07:14:00 FAX: Kian Rogers [phone] [place]: St: DIS FAX: Y Ilan Stein MD Name: MOJGAN CUMMINGS [facility] : 1950 Age/S: 69/F [address] [facility] Unit #: [id number] Loc: V.2080 [place] [address] Phys: Kian Rogers Acct: [id number] Dis Date: [id number] Status: DIS IN PHONE #: [phone] Exam Date: 07/30/2019 0601 FAX #: [phone] Reason: updated pulm view. EXAMS: CPT CODE: [id number] XR CHEST 1 V 50097 HISTORY: updated pulm view. TECHNIQUE: AP chest x-ray COMPARISON: 07/28/19 FINDINGS: Dev eloping mild right basilar atelectasis/consolidation. No pleural effusion. Normal heart size. Mediastinal silhouette is unremarkable. Tracheostomy t ube. Degenerative changes of the spine and shoulders. IMPRESSION : Developing mild right basilar atelectasis/consolidation. LOCATION: LP Electroni sherry Signed by Lenka Farrar D.O. on 07/30/2019 at 0714 Rep orted and signed by: Lenka Farrar D.O. CC: Kian Rogers; Ilan Lugo Technologist: OCTAVIO VASQUEZ JR; Abigail Darling Trnscrd Date/Time/By: 07/30/2019 (07) : By: [email or web address] Orig Print D/T: [...] PLT) 34 K/mm3 150-450 LL Results called [id number] by [facility] 07/30/19 0406Critical results verified and read back [...] = IMMAT) 0 % 0-0 N T3 [id number] 06:07:00* Test Item Value Reference Range Interpretation Comments T3 FREE (test code = T3F) 1.9 pg/mL 2.0-4.4 L Pe rformed At: [facility] [address] [id number] Kyle L MD Ph:[phone] B-TYPE NATRIURETIC [id number] 06:07:00* Test Item Value Reference Range Interpretation Comments B-TYPE NATRIURETIC PEPTIDE (test code = BNP) 51.07 pgram/mL 0-100 N COMPREHENSIVE METABOLIC [id number] 06:07:00* Test Item Value Reference Range Interpretation [...] reference range due to change in reagent. [id number] 06:07:00* Test Item Value Reference Range Interpretation Comments PHOSPHORUS (test code = PHOS) 2.6 mg/dL 2.5-4.9 N [id number] 06:07:00* Test Item Value Reference Range Interpretation Comments LIPASE (test code = LIP) 23 U/L 73.0-393.0 L [id number] 06:07:00* Test Item Value Reference Range Interpretation Comments MAGNESIUM (test code = MAG) 1.3 mg/dL 1.8-2.4 L SERUM [id number] 06:07:00* Test Item Value Reference Range Interpretation Comments SERUM IRON (test code = IRON) 63 ug/dL 50-175 N TOTAL IRON BINDING [id number] 06:07:00* Test Item Value Reference Range Interpretation Comments TOTAL IRON BINDING CAPACITY (test code = TIBC) 176 mcg/dL 250-450 L THYROID PROFILE [id number] 06:07:00* Test Item Value Reference Range Interpretation [...] mIU/mL HYPER : < 0.35 mIU/mL TOTAL [id number] 06:07:00* Test Item Value Reference Range Interpretation Comments TOTAL T3 (test code = T3) 74 ng/dL 71-180 Pe rformed At: [facility] [address] [id number] Kyle L MD Ph:[phone] T4 [id number] 06:07:00* Test Item Value Reference Range Interpretation Comments T4 FREE (test code = T4F) 0.85 ng/dL 0.76-1.46 N [id number] 06:07:00* Test Item Value Reference Range Interpretation Comments TROPONIN-I (test code = TROPI) <0.015 ng/mL 0-0.045 N CALCIUM [id number] 06:07:00* Test Item Value Reference Range Interpretation Comments CALCIUM IONIZED (test code = ERICH) 1.44 mmol/L 1.12-1.32 H BASIC METABOLIC [id number] 05:39:00* Test Item Value Reference Range Interpretation [...] CA) 8.1 mg/dL 8.5-10.1 L CBC W/MANUAL [id number] 04:07:00* Test Item Value Reference Range Interpretation [...] PLT) 34 K/mm3 150-450 LL Results called [id number] by ANJALI 07/30/19 0406Critical results verified and [...] MORPHOLOGY (test code = PLTMORPH) CBC W/MANUAL [id number] 04:07:00* Test Item Value Reference Range Interpretation [...] PLT) 34 K/mm3 150-450 LL Results called [id number] by [facility] 07/30/19 0406Critical results verified and read back [...] MORPHOLOGY (test code = PLTMORPH) CBC W/MANUAL [id number] 04:07:00* Test Item Value Reference Range Interpretation [...] PLT) 34 K/mm3 150-450 LL Results called [id number] by [facility] 07/30/19 0406Critical results verified and read back [...] MORPHOLOGY (test code = PLTMORPH) CBC W/MANUAL [id number] 04:07:00* Test Item Value Reference Range Interpretation [...] PLT) 34 K/mm3 150-450 LL Results called [id number] by [facility] 07/30/19 0406Critical results verified and read back [...] MORPHOLOGY (test code = PLTMORPH) CBC W/MANUAL [id number] 04:07:00* Test Item Value Reference Range Interpretation [...] PLT) 34 K/mm3 150-450 LL Results called [id number] by FERNANDO 07/30/19 0406Critical results verified and [...] PLTEST) PLATELET MORPHOLOGY (test code = PLTMORPH) [id number] 14:27:00* Test Item Value Reference Range Interpretation Comments PHOSPHORUS (test code = PHOS) 2.4 mg/dL 2.5-4.9 L [id number] 14:27:00* Test Item Value Reference Range Interpretation Comments MAGNESIUM (test code = MAG) 1.2 mg/dL 1.8-2.4 L CALCIUM [id number] 14:27:00* Test Item Value Reference Range Interpretation Comments CALCIUM IONIZED (test code = ERICH) 1.35 mmol/L 1.12-1.32 H BASIC METABOLIC [id number] 14:22:00* Test Item Value Reference Range Interpretation [...] code = CA) 8.8 mg/dL 8.5-10.1 N [id number] 14:22:00* Test Item Value Reference Range Interpretation Comments PHOSPHORUS (test code = PHOS) 2.4 mg/dL 2.5-4.9 L [id number] 14:22:00* Test Item Value Reference Range Interpretation Comments MAGNESIUM (test code = MAG) 1.2 mg/dL 1.8-2.4 L CALCIUM [id number] 14:22:00* Test Item Value Reference Range Interpretation Comments CALCIUM IONIZED (test code = ERICH) mmol/L 1.12-1.32 BASIC METABOLIC [id number] 14:19:00* Test Item Value Reference Range Interpretation [...] CALCIUM (test code = CA) mg/dL 8.5-10.1 [id number] 14:19:00* Test Item Value Reference Range Interpretation Comments PHOSPHORUS (test code = PHOS) mg/dL 2.5-4.9 [id number] 14:19:00* Test Item Value Reference Range Interpretation Comments MAGNESIUM (test code = MAG) 1.2 mg/dL 1.8-2.4 L CALCIUM [id number] 14:19:00* Test Item Value Reference Range Interpretation Comments CALCIUM IONIZED (test code = ERICH) mmol/L 1.12-1.32 CBC W/AUTO [id number] 07:13:00* Test Item Value Reference Range Interpretation [...] PLT) 27 K/mm3 150-450 LL Results called [id number] by [facility] 07/29/19 0711Critical results verified and read back [...] = MDIFF) NO, ONLY SCAN NEEDED DIFFERENTIAL [id number] 07:13:00* Test Item Value Reference Range Interpretation Comments STAIN ACCEPTABILITY (test code = STN ACCEPTABLE) STAIN ACCEPTABLE MORPHOLOGY COMMENT (test code = MOC) NORMAL PLATELET ESTIMATE (test code = PLTEST) DECREASED PLATELET MORPHOLOGY (test code = PLTMORPH) NORMAL CBC W/AUTO [id number] 07:12:00* Test Item Value Reference Range Interpretation [...] PLT) 27 K/mm3 150-450 LL Results called [id number] by ANJALI 07/29/19 0711Critical results verified and [...] = MDIFF) NO, ONLY SCAN NEEDED DIFFERENTIAL [id number] 07:12:00* Test Item Value Reference Range Interpretation Comments STAIN ACCEPTABILITY (test code = STN ACCEPTABLE) CABOT RINGS (test code = CAB) MORPHOLOGY COMMENT (test code = MOC) PLATELET ESTIMATE (test code = PLTEST) PLATELET MORPHOLOGY (test code = PLTMORPH) CBC W/AUTO [id number] 07:12:00* Test Item Value Reference Range Interpretation [...] PLT) 27 K/mm3 150-450 LL Results called [id number] by FERNANDO 07/29/19 0711Critical results verified and [...] = MDIFF) NO, ONLY SCAN NEEDED DIFFERENTIAL [id number] 07:12:00* Test Item Value Reference Range Interpretation Comments STAIN ACCEPTABILITY (test code = STN ACCEPTABLE) CABOT RINGS (test code = CAB) MORPHOLOGY COMMENT (test code = MOC) PLATELET ESTIMATE (test code = PLTEST) PLATELET MORPHOLOGY (test code = PLTMORPH) CBC W/AUTO [id number] 07:12:00* Test Item Value Reference Range Interpretation [...] PLT) 27 K/mm3 150-450 LL Results called [id number] by [facility] 07/29/19 0711Critical results verified and read back [...] = MDIFF) NO, ONLY SCAN NEEDED DIFFERENTIAL [id number] 07:12:00* Test Item Value Reference Range Interpretation Comments STAIN ACCEPTABILITY (test code = STN ACCEPTABLE) MORPHOLOGY COMMENT (test code = MOC) PLATELET ESTIMATE (test code = PLTEST) PLATELET MORPHOLOGY (test code = PLTMORPH) CBC W/AUTO [id number] 07:12:00* Test Item Value Reference Range Interpretation [...] PLT) 27 K/mm3 150-450 LL Results called [id number] by FERNANDO 07/29/19 0711Critical results verified and [...] = MDIFF) NO, ONLY SCAN NEEDED DIFFERENTIAL [id number] 07:12:00* Test Item Value Reference Range Interpretation Comments STAIN ACCEPTABILITY (test code = STN ACCEPTABLE) CABOT RINGS (test code = CAB) MORPHOLOGY COMMENT (test code = MOC) PLATELET ESTIMATE (test code = PLTEST) PLATELET MORPHOLOGY (test code = PLTMORPH) BASIC METABOLIC [id number] 05:42:00* Test Item Value Reference Range Interpretation [...] mg/dL 8.5-10.1 N - CT CHEST W/O [id number] 01:50:00 [facility] 1950 Age/S: 69 / F [address] [facility] Unit #: [id number] Loc: [place] [address] Phys: Soledad Damian MD Acct: [id number] Dis Date: Status: ADM IN PHONE #: [phone] Exam Date: 07/29/2019 003 FAX #: [phone] Reason: respiratory failure EXAMS: CPT CODE: [id number] CT CHEST W/O CONTRAST 73909 EXAM: CHEST CT WITHOUT INTRAVENOUS CONTRAST CLINICAL [...] 1 Signed Report (CONTINUED) Name: MARCELA CUMMINGS [facility] : 1950 Age/S: 69 / F [address] Unit #: [id number] Loc: [place] [address] Phys: Qasim Damian MD Acct: [id number] Dis Date: Status: ADM IN PHONE #: Exam Date: 07/29/2019 0030 FAX #: [phone] Reason: respiratory failure EXAMS: CPT CODE: [id number] CT CHEST W/O CO NTRAST 77198 <Continued> 2.There is a wedge-shaped dense opacity [...] GARCIA CTDI: DLP: Trnscb Date/Time: 07/29/2019 (149) tCHERRY MaloneSR31 Orig Print D/T: S: 07/29/2019 (015) PAGE 2 Signed Report - CT CHEST W/O [id number] 01:50:00 Name: MOJGAN CUMMINGS [facility] : 1950 Age/S: 69 / F [address] Unit #: [id number] Loc: [place] [address] Phys: Soledad Damian MD Acct: [id number] Dis Date: 08/06/2019 Status: DIS IN PHONE #: [phone] Exam Date: 07/29/2019 0030 FAX #: [phone] Reason: respiratory failure EXAMS: CPT CODE: [id number] CT CHEST W/O CONTRAST 69002 EXAM: CHEST CT WITHOUT INTRAVENOUS CONTRAST CLINICAL [...] 1 Signed Report (CONTINUED) Name: MOJGAN CUMMINGS [facility] : 1950 Age/S: 69 / F [address] [facility] Unit #: [id number] Loc: [place] [address] Phys: Qasim Damian MD Acct: [id number] Dis Date: 08/06/2019 Status: DIS IN PHONE #: Exam Date: 07/29/20190 FAX #: [phone] Reason: respiratory failure EXAMS: CPT CODE: [id number] CT CHEST W/O CO NTRAST 81350 <Continued> 2.There is a wedge-shaped dense opacity [...] CT CTDI: DLP: Trnscb Date/Time: 07/29/2019 (015) Therese MaloneSR31 Orig Print D/T: S: 07/29/2019 (0153) PAGE 2 Signed Report URINALYSIS [id number] 00:02:00* Test Item Value Reference Range Interpretation [...] FEW #/LPF FEW Urine Source? Clean CatchURINALYSIS [id number] 23:48:00* Test Item Value Reference Range Interpretation [...] HPF NONE Urine Source? Clean CatchCBC W/AUTO [id number] 23:16:00* Test Item Value Reference Range Interpretation [...] 28 K/mm3 150-450 LL Results called to [id number] by WhitetruffleLAB.HD1 07/28/19 2236Critical results verified and read back [...] = MDIFF) NO, ONLY SCAN NEEDED DIFFERENTIAL [id number] 23:16:00* Test Item Value Reference Range Interpretation Comments STAIN ACCEPTABILITY (test code = STN ACCEPTABLE) STAIN ACCEPTABLE PLATELET ESTIMATE (test code = PLTEST) DECREASED PLATELET MORPHOLOGY (test code = PLTMORPH) APPEAR LARGE COMPREHENSIVE METABOLIC [id number] 22:52:00* Test Item Value Reference Range Interpretation [...] reference range due to change in reagent. [id number] 22:52:00* Test Item Value Reference Range Interpretation Comments PHOSPHORUS (test code = PHOS) 2.6 mg/dL 2.5-4.9 N [id number] 22:52:00* Test Item Value Reference Range Interpretation Comments LIPASE (test code = LIP) 23 U/L 73.0-393.0 L [id number] 22:52:00* Test Item Value Reference Range Interpretation Comments MAGNESIUM (test code = MAG) 1.3 mg/dL 1.8-2.4 L SERUM [id number] 22:52:00* Test Item Value Reference Range Interpretation Comments SERUM IRON (test code = IRON) 63 ug/dL 50-175 N TOTAL IRON BINDING [id number] 22:52:00* Test Item Value Reference Range Interpretation Comments TOTAL IRON BINDING CAPACITY (test code = TIBC) 176 mcg/dL 250-450 L THYROID PROFILE [id number] 22:52:00* Test Item Value Reference Range Interpretation [...] mIU/mL HYPER : < 0.35 mIU/mL TOTAL [id number] 22:52:00* Test Item Value Reference Range Interpretation Comments TOTAL T3 (test code = T3) T4 [id number] 22:52:00* Test Item Value Reference Range Interpretation Comments T4 FREE (test code = T4F) 0.85 ng/dL 0.76-1.46 N [id number] 22:52:00* Test Item Value Reference Range Interpretation Comments TROPONIN-I (test code = TROPI) <0.015 ng/mL 0-0.045 N CALCIUM [id number] 22:52:00* Test Item Value Reference Range Interpretation Comments CALCIUM IONIZED (test code = ERICH) 1.44 mmol/L 1.12-1.32 H CBC W/AUTO [id number] 22:36:00* Test Item Value Reference Range Interpretation [...] 28 K/mm3 150-450 LL Results called to [id number] by [email or web address] 07/28/19 2236Critical results verified and [...] = MDIFF) NO, ONLY SCAN NEEDED DIFFERENTIAL [id number] 22:36:00* Test Item Value Reference Range Interpretation Comments STAIN ACCEPTABILITY (test code = STN ACCEPTABLE) CABOT RINGS (test code = CAB) MORPHOLOGY COMMENT (test code = MOC) PLATELET ESTIMATE (test code = PLTEST) PLATELET MORPHOLOGY (test code = PLTMORPH) CBC W/AUTO [id number] 22:36:00* Test Item Value Reference Range Interpretation [...] 28 K/mm3 150-450 LL Results called to [id number] by [email or web address] 07/28/19 2236Critical results verified and [...] = MDIFF) NO, ONLY SCAN NEEDED DIFFERENTIAL [id number] 22:36:00* Test Item Value Reference Range Interpretation Comments STAIN ACCEPTABILITY (test code = STN ACCEPTABLE) CABOT RINGS (test code = CAB) MORPHOLOGY COMMENT (test code = MOC) PLATELET ESTIMATE (test code = PLTEST) PLATELET MORPHOLOGY (test code = PLTMORPH) CBC W/AUTO [id number] 22:36:00* Test Item Value Reference Range Interpretation [...] 28 K/mm3 150-450 LL Results called to [id number] by V.LAB.HD1 07/28/19 2236Critical results verified and [...] = MDIFF) NO, ONLY SCAN NEEDED DIFFERENTIAL [id number] 22:36:00* Test Item Value Reference Range Interpretation Comments STAIN ACCEPTABILITY (test code = STN ACCEPTABLE) MORPHOLOGY COMMENT (test code = MOC) PLATELET ESTIMATE (test code = PLTEST) PLATELET MORPHOLOGY (test code = PLTMORPH) CBC W/AUTO [id number] 22:36:00* Test Item Value Reference Range Interpretation [...] 28 K/mm3 150-450 LL Results called to [id number] by WhitetruffleLAB.HD1 07/28/19 2236Critical results verified and read back [...] = MDIFF) NO, ONLY SCAN NEEDED DIFFERENTIAL [id number] 22:36:00* Test Item Value Reference Range Interpretation Comments STAIN ACCEPTABILITY (test code = STN ACCEPTABLE) CABOT RINGS (test code = CAB) MORPHOLOGY COMMENT (test code = MOC) PLATELET ESTIMATE (test code = PLTEST) PLATELET MORPHOLOGY (test code = PLTMORPH) T3 [id number] 22:32:00* Test Item Value Reference Range Interpretation Comments T3 FREE (test code = T3F) pg/mL B-TYPE NATRIURETIC [id number] 22:32:00* Test Item Value Reference Range Interpretation Comments B-TYPE NATRIURETIC PEPTIDE (test code = BNP) 51.07 pgram/mL 0-100 N [id number] 22:31:00* Test Item Value Reference Range Interpretation Comments GLYCOSYLATED HEMOGLOBIN (HA1C) (test code = GLYHGB) 4.8 % HbA1 4. 8-6.0 N ESTIMATED AVERAGE GLUCOSE (test code = EAG) 91 MG/DL COMPREHENSIVE METABOLIC [id number] 22:30:00* Test Item Value Reference Range Interpretation [...] reference range due to change in reagent. [id number] 22:30:00* Test Item Value Reference Range Interpretation Comments PHOSPHORUS (test code = PHOS) 2.6 mg/dL 2.5-4.9 N [id number] 22:30:00* Test Item Value Reference Range Interpretation Comments LIPASE (test code = LIP) 23 U/L 73.0-393.0 L [id number] 22:30:00* Test Item Value Reference Range Interpretation Comments MAGNESIUM (test code = MAG) 1.3 mg/dL 1.8-2.4 L SERUM [id number] 22:30:00* Test Item Value Reference Range Interpretation Comments SERUM IRON (test code = IRON) 63 ug/dL 50-175 N TOTAL IRON BINDING [id number] 22:30:00* Test Item Value Reference Range Interpretation Comments TOTAL IRON BINDING CAPACITY (test code = TIBC) 176 mcg/dL 250-450 L THYROID PROFILE [id number] 22:30:00* Test Item Value Reference Range Interpretation [...] mIU/mL HYPER : < 0.35 mIU/mL TOTAL [id number] 22:30:00* Test Item Value Reference Range Interpretation Comments TOTAL T3 (test code = T3) T4 [id number] 22:30:00* Test Item Value Reference Range Interpretation Comments T4 FREE (test code = T4F) 0.85 ng/dL 0.76-1.46 N [id number] 22:30:00* Test Item Value Reference Range Interpretation Comments TROPONIN-I (test code = TROPI) <0.015 ng/mL 0-0.045 N CALCIUM [id number] 22:30:00* Test Item Value Reference Range Interpretation [...] This LDL result is a direct measurement.========= [id number] 22:27:00* Test Item Value Reference Range Interpretation Comments CALCIUM (test code = CA) 9.3 mg/dL 8.5-10.1 N [id number] 22:27:00* Test Item Value Reference Range Interpretation Comments CKMB (test code = CKMBT) < 1.0 ng/mL 0-6.0 N LACTIC [id number] 22:26:00* Test Item Value Reference Range Interpretation Comments LACTIC ACID (test code = LACT) 0.7 mmol/L 0.4-1.9 N - XR CHEST 1 [id number] 22:23:00 FAX: Kian Rogers [phone] [place]: St: ADM FAX: Ilan Holt MD Name: MARCELA CUMMINGS [facility] : 1950 Age/S: 69/F [employer] Unit #: [id number] Loc: V.S24 [place] [address] Phys: Kian Rogers Acct: [id number] Dis Date: Status: ADM IN PHONE #: [phone] Exam Date: 07/28/20192214 FAX #: [phone] Reason: updated pulm status EXAMS: CPT CODE: [id number] XR CHEST 1 V 74217 HISTORY: Bleeding from tracheostomy; updated pulm status [...] Maria Guadalupe Gonzalez(R) Trnscrd Date/Time/By: 07/28/2019 (2 ) : By: [email or web address] Orig Print D/T: S: 07/28/2019 (8540) PAGE 1 Signed Report - XR CHEST 1 [id number] 22:23:00 FAX: Kian Rogers [phone] [place]: St: DIS FAX: Ilan Holt MD Name: MOJGAN CUMMINGS [facility] : 1950 Age/S: 69/F [address] Unit #: [id number] Loc: V.1 [place] [address] Phys: Kian Rogers Acct: [id number] Dis Date: [id number] Status: DIS IN PHONE #: [phone] Exam Date: 07/28/20192214 FAX #: [phone] Reason: updated pulm status EXAMS: CPT CODE: [id number] XR CHEST 1 V 80412 HISTORY: Bleeding from tracheostomy; updated pulm status [...] By: [email or web address] Orig Print D/T: S: 07/28/2019 (2580) PAGE 1 Signed Report [id number] 22:20:00* Test Item Value Reference Range Interpretation [...] LDL (test code = LDL) mg/dL 100-129 [id number] 22:20:00* Test Item Value Reference Range Interpretation Comments CALCIUM (test code = CA) 9.3 mg/dL 8.5-10.1 N [id number] 22:20:00* Test Item Value Reference Range Interpretation Comments CKMB (test code = CKMBT) ng/mL 0-6.0 COMPREHENSIVE METABOLIC [id number] 22:14:00* Test Item Value Reference Range Interpretation [...] TOTAL (test code = ALKP) IUnit/L 45-117 [id number] 22:14:00* Test Item Value Reference Range Interpretation Comments PHOSPHORUS (test code = PHOS) mg/dL 2.5-4.9 [id number] 22:14:00* Test Item Value Reference Range Interpretation Comments LIPASE (test code = LIP) U/L 73.0-393.0 [id number] 22:14:00* Test Item Value Reference Range Interpretation Comments MAGNESIUM (test code = MAG) mg/dL 1.8-2.4 SERUM [id number] 22:14:00* Test Item Value Reference Range Interpretation Comments SERUM IRON (test code = IRON) ug/dL 50-175 TOTAL IRON BINDING [id number] 22:14:00* Test Item Value Reference Range Interpretation Comments TOTAL IRON BINDING CAPACITY (test code = TIBC) mcg/dL 250-450 THYROID PROFILE [id number] 22:14:00* Test Item Value Reference Range Interpretation Comments T3 UPTAKE (test code = T3UP) % 30.0-40.0 T4 (THYROXINE) (test code = T4) ug/dL 4.5-13.9 T7 (FREE THYROXINE INDEX) (test code = T7) FTI 1.3-5.1 THYROID STIMULATING HORMONE (test code = TSH) uIU/mL 0.36-3.7 4 TOTAL [id number] 22:14:00* Test Item Value Reference Range Interpretation Comments TOTAL T3 (test code = T3) T4 [id number] 22:14:00* Test Item Value Reference Range Interpretation Comments T4 FREE (test code = T4F) ng/dL 0.76-1.46 [id number] 22:14:00* Test Item Value Reference Range Interpretation Comments TROPONIN-I (test code = TROPI) ng/mL 0-0.045 CALCIUM [id number] 22:14:00* Test Item Value Reference Range Interpretation Comments CALCIUM IONIZED (test code = ERICH) mmol/L 1.12-1.32 PROTHROMBIN [id number] 22:13:00* Test Item Value Reference Range Interpretation [...] PATIENT ON ANTICOAGULANTS? YLIST ANTICOAGULANTS HEPARINTHROMBOPLASTIN TIME [id number] 22:13:00* Test Item Value Reference Range Interpretation Comments THROMBOPLASTIN TIME PARTIAL (test code = PTT) 28.5 seconds 25.0-36. 5 N IS PATIENT ON ANTICOAGULANTS? YLIST ANTICOAGULANTS HEPARIN- XR CHEST 1 V 2019-07-28 19:20:00 FAX: Ilan Holt MD [place]: St: ADM FAX: Lisa Jeronimo MD [phone] Name: MARCELA CUMMINGS [facility] : 1950 Age/S: 69/F [address] [facility] Unit #: [id number] Loc: [place] [address] Phys: Lisa Jeronimo MD Acct: [id number] Dis Date: Status: ADM IN PHONE #: [phone] Exam Date: 07/28/2019 1815 FAX #: [phone] Reason: post [facility] EXAMS: CPT CODE: [id number] XR CHEST 1 V 86585 HISTORY: Bleeding from tracheostomy; post bronchoscopy TECHNIQUE: AP chest x-ray COMPARISON: Same date, 2 hours earlier IMPRESSION: No significant interval change. No pneumothorax. No airspace consolidation or pleural effusion. Right basilar subsegmental atelectasis. Normal heart size. Tracheostomy tube. LOCATION: LP at 1920 Reported and signed by: Lenka Farrar D.O. CC: Ilan Stein; Lisa Jeronimo MD Technologist: RADHA ALEXANDRA(R) Trnscrd Date/Time/By: 07/28/2019 (1919) : By: [email or web address] Orig Print D/T: S: 07/28/2019 (1922) PAGE 1 Signed Report - XR CHEST 1 [id number] 19:20:00 FAX: Ilan Holt MD [place]: St: DIS FAX: Lisa Jeronimo MD [phone] Name: MOJGAN CUMMINGS [facility] : 1950 Age/S: 69/F [address] [facility] Unit #: [id number] Loc: V.2080 [place] [address] Phys: Lisa Jeronimo MD Acct: [id number] Dis Date: [id number] Status: DIS IN PHONE #: [phone] Exam Date: 07/28/20191814 FAX #: [phone] Reason: post [facility] EXAMS: CPT CODE: [id number] XR CHEST 1 V 07925 HISTORY: Bleeding from tracheostomy; post bronchoscopy TECHNIQUE: [...] RT(R) Trnscrd Date/Time/By: 07/28/2019 (1919) : By: [email or web address] Orig Print D/T: S: 07/28/2019 (1922) PAGE 1 Signed Report CBC W/AUTO [id number] 17:12:00* Test Item Value Reference Range Interpretation [...] 36 K/mm3 150-450 LL Results called to [id number] by [email or web address] 07/28/19 1629Critical results verified and read back [...] = MDIFF) NO, ONLY SCAN NEEDED DIFFERENTIAL [id number] 17:12:00* Test Item Value Reference Range Interpretation Comments STAIN ACCEPTABILITY (test code = STN ACCEPTABLE) STAIN ACCEPTABLE MORPHOLOGY COMMENT (test code = MOC) NORMAL PLATELET ESTIMATE (test code = PLTEST) DECREASED PLATELET MORPHOLOGY (test code = PLTMORPH) NORMAL COMPREHENSIVE METABOLIC [id number] 16:41:00* Test Item Value Reference Range Interpretation [...] due to change in reagent. COMPREHENSIVE METABOLIC [id number] 16:33:00* Test Item Value Reference Range Interpretation [...] code = ALKP) IUnit/L 45-117 CBC W/AUTO [id number] 16:29:00* Test Item Value Reference Range Interpretation [...] 36 K/mm3 150-450 LL Results called to [id number] by [email or web address] 07/28/19 1629Critical results verified and read back [...] = MDIFF) NO, ONLY SCAN NEEDED DIFFERENTIAL [id number] 16:29:00* Test Item Value Reference Range Interpretation Comments STAIN ACCEPTABILITY (test code = STN ACCEPTABLE) CABOT RINGS (test code = CAB) MORPHOLOGY COMMENT (test code = MOC) PLATELET ESTIMATE (test code = PLTEST) PLATELET MORPHOLOGY (test code = PLTMORPH) CBC W/AUTO [id number] 16:29:00* Test Item Value Reference Range Interpretation [...] 36 K/mm3 150-450 LL Results called to [id number] by [email or web address] 07/28/19 1629Critical results verified and [...] = MDIFF) NO, ONLY SCAN NEEDED DIFFERENTIAL [id number] 16:29:00* Test Item Value Reference Range Interpretation Comments STAIN ACCEPTABILITY (test code = STN ACCEPTABLE) CABOT RINGS (test code = CAB) MORPHOLOGY COMMENT (test code = MOC) PLATELET ESTIMATE (test code = PLTEST) PLATELET MORPHOLOGY (test code = PLTMORPH) CBC W/AUTO [id number] 16:29:00* Test Item Value Reference Range Interpretation [...] 36 K/mm3 150-450 LL Results called to [id number] by V.LAB.HD1 07/28/19 1629Critical results verified and [...] = MDIFF) NO, ONLY SCAN NEEDED DIFFERENTIAL [id number] 16:29:00* Test Item Value Reference Range Interpretation Comments STAIN ACCEPTABILITY (test code = STN ACCEPTABLE) MORPHOLOGY COMMENT (test code = MOC) PLATELET ESTIMATE (test code = PLTEST) PLATELET MORPHOLOGY (test code = PLTMORPH) CBC W/AUTO [id number] 16:29:00* Test Item Value Reference Range Interpretation [...] 36 K/mm3 150-450 LL Results called to [id number] by WhitetruffleLAB.HD1 07/28/19 1629Critical results verified and read back [...] = MDIFF) NO, ONLY SCAN NEEDED DIFFERENTIAL [id number] 16:29:00* Test Item Value Reference Range Interpretation Comments STAIN ACCEPTABILITY (test code = STN ACCEPTABLE) CABOT RINGS (test code = CAB) MORPHOLOGY COMMENT (test code = MOC) PLATELET ESTIMATE (test code = PLTEST) PLATELET MORPHOLOGY (test code = PLTMORPH) - XR CHEST 1 [id number] 16:28:00 FAX: Lisa Jeronimo MD [phone] [place]: B St: PRE Name: MARCELA SAUCEDO [facility] : [birth year] Age/S: 69/F [address] [facility] Unit #: [id number] Loc: [place] [address] Phys: Lisa Jeronimo MD Acct: [id number] Dis Date: Status: PRE ER PHONE #: [phone] Exam Date: 07/28/2019 1612 FAX #: [phone] Reason: sob EXAMS: CPT CODE: [id number] XR CHEST 1 V 95402 HISTORY: Shortness of breath TECHNIQUE: AP chest x-ray COMPARISON: None FINDINGS: No airspace consolidation or pleural effusion. Tracheost alonzo tube. Normal heart size. Mediastinal silhouette is unremarkable. Degenerative changes of the spine and shoulders. IMPRESSION: No radiographic evidence of acute cardiopulmonary process. LOCATION: at 1628 Reported and signed by: Lenka Farrar D.O. CC: Lisa Jeronimo MD Technologist: Misty ALEXANDRA(R) Trnscrd Date/Time/By: 07/28/2019 (6162) : By: [email or web address] Orig Print D/T: S: 07/28/2019 (7142) PAGE 1 Signed Report - XR CHEST 1 [id number] 16:28:00 FAX: Lisa Jeronimo MD [phone] [place]: [address] St: DIS Name: MOJGAN SAUCEDO [facility] : [birth year] Age/S: 69/F [address] [facility] Unit #: [id number] Loc: V.2080 [place] [address] Phys: Lisa Jeronimo MD Acct: [id number] Dis Date: [id number] Status: DIS IN PHONE #: [phone] Exam Date: 07/28/2019 1612 FAX #: [phone] Reason: sob EXAMS: CPT CODE: [id number] XR CHEST 1 V 18793 HISTORY: Shortness of breath TECHNIQUE: AP chest x-ray COMPARISON: None FINDINGS: No airspace consolidation or pleural effusion. Tracheost alonzo tube. Normal heart size. Mediastinal silhouette is unremarkable. Degenerative changes of the spine and shoulders. IMPRESSION: No radiographic evidence of acute cardiopulmonary process. LOCATION: LP at 1628 Reported and signed by: Lenka Farrar D.O. CC: Lisa Jeronimo MD Technologist: Misty ALEXANDRA(Ivan) Trnscrd Date/Time/By: 07/28/2019 (0108) : By: [email or web address] Orig Print D/T: S: 07/28/2019 (4994) PAGE 1 Signed Report Platelet Estimate 2019-07-13 10:47:00* Test Item Value Reference Range Interpretation Comments Platelet Estimate (test code = 02776-4) MODERATELY DECREASED [facility]enPlate[facility] Morphology [id number] 10:47:00* Test Item Value Reference Range Interpretation Comments Platelet Morphology Comment (test code = 26647-6) NORMAL [facility]lingenRed Cell Morphology Hkgeafq9999-59-26 10:47:00* Test Item Value Reference Range Interpretation Comments Red Cell Morphology Comment (test code = 6742-1) NORMAL [facility]enRed Cell Morphology Mxaevfl4974-95-37 10:47:00* Test Item Value Reference Range Interpretation Comments Red Cell Morphology Comment (test code = 6742-1) NORMAL [facility]enRed Cell Morphology Hkqpdsr1246-15-43 10:47:00* Test Item Value Reference Range Interpretation Comments Red Cell Morphology Comment (test code = 6742-1) NORMAL [facility] Fljso5359-91-34 06:51:00* Test Item Value Reference Range Interpretation Comments Sodium Level (test code = 2951-2) 141 136-145 [facility]enPotassium Rcbwq5277-17-78 06:51:00* Test Item Value Reference Range Interpretation Comments Potassium Level (test code = 2823-3) 3.8 3.5-5.1 [facility]enChloride Cidxw5094-41-12 06:51:00* Test Item Value Reference Range Interpretation Comments Chloride Level (test code = 2075-0) 105 98-107 [facility] HarlingenCarbon Dioxide Vedrb3314-06-06 06:51:00* Test Item Value Reference Range Interpretation Comments Carbon Dioxide Level (test code = 2028-9) 28 22-29 [facility] HarlingenAnion [id number] 06:51:00* Test Item Value Reference Range Interpretation Comments Anion Gap (test code = 10801-2) 11.8 8-16 [facility] HarlingenBlood Urea Optyeojk8940-31-62 06:51:00* Test Item Value Reference Range Interpretation Comments Blood Urea Nitrogen (test code = 3094-0) 15 7-26 [facility]lingenCreatinine2019-10-25 06:51:00* Test Item Value Reference Range Interpretation Comments Creatinine (test code = 2160-0) 0.79 0.57-1.11 [facility]lingenBUN/Creatinine Zbthb2786-88-33 06:51:00* Test Item Value Reference Range Interpretation Comments BUN/Creatinine Ratio (test code = 3097-3) 19 6-25 [facility] HarlingenEstimat Glomerular Filtration Rate 2019-07-13 06:51:00* Test Item Value Reference Range Interpretation Comments Estimat Glomerular Filtration Rate (test code = 468646098) > 60 >60 Ranges were taken from the National Kidney Disease Education Program and the [facility] Kidney Foundation literature.Reference ranges:60 or greater: Tzyzvd94-41 ( for 3 consecutive months): Chronic kidney disease 15 or less: Kidney failureValley [facility] Medical Center – HarlingenGlucose Tmnxi3095-81-03 06:51:00* Test Item Value Reference Range Interpretation Comments Glucose Level (test code = TPE2061) 82 74-118 [facility] HarlingenCalcium Iebbt8170-64-47 06:51:00* Test Item Value Reference Range Interpretation Comments Calcium Level (test code = 41587-6) 10.2 8.4-10.2 [facility] HarlingenWhite Blood Imuao8224-11-29 06:30:00* Test Item Value Reference Range Interpretation Comments White Blood Count (test code = 6690-2) 5.31 4.8-10.8 [facility] HarlingenRed Blood Svdcn4779-37-56 06:30:00* Test Item Value Reference Range Interpretation Comments Red Blood Count (test code = 789-8) 3.33 3.6-5.1 L [facility] HarlingenHemoglobin2019-10-25 06:30:00* Test Item Value Reference Range Interpretation Comments Hemoglobin (test code = 82499-8) 9.9 12.0-16.0 L [facility] HarlingenHematocrit2019-10-25 06:30:00* Test Item Value Reference Range Interpretation Comments Hematocrit (test code = 4544-3) 31.4 34.2-44.1 L [facility] HarlingenMean Corpuscular Ophurb7298-01-53 06:30:00* Test Item Value Reference Range Interpretation Comments Mean Corpuscular Volume (test code = 787-2) 94.3 81-99 [facility] HarlingenMean Corpuscular Jhniihzhyo4067-91-15 06:30:00* Test Item Value Reference Range Interpretation Comments Mean Corpuscular Hemoglobin (test code = 785-6) 29.7 28-32 [facility] HarlingenMean Corpuscular Hemoglobin Concent 2019-07-13 06:30:00* Test Item Value Reference Range Interpretation Comments Mean Corpuscular Hemoglobin Concent (test code = 786-4) 31.5 31-35 [facility] HarlingenRed Cell Distribution Odkvg1993-47-67 06:30:00* Test Item Value Reference Range Interpretation Comments Red Cell Distribution Width (test code = 62739-8) 11.4 11.7 -14.4 L [facility] HarlingenPlatelet Ycouo8070-90-46 06:30:00* Test Item Value Reference Range Interpretation Comments Platelet Count (test code = 777-3) 31 140-360 LL Results repeated and called to Bertha Ayala at 0628 on 07/13/19 by Sherrie vásquez. Read back and verified.[facility] HarlingenNeutrophils (%) (Auto)2019-07-13 06:30:00* Test Item Value Reference Range Interpretation Comments Neutrophils (%) (Auto) (test code = 65312-2) 61.5 38.7-80.0 [facility] HarlingenLymphocytes (%) (Auto)2019-07-13 06:30:00 * Test Item Value Reference Range Interpretation Comments Lymphocytes (%) (Auto) (test code = 736-9) 24.7 18.0-39.1 [facility]enMonocytes (%) (Auto)2019-07-13 06:30:00* Test Item Value Reference Range Interpretation Comments Monocytes (%) (Auto) (test code = 5905-5) 7.7 4.4-11.3 [facility]enEosinophils (%) (Auto)2019-07-13 06:30:00 * Test Item Value Reference Range Interpretation Comments Eosinophils (%) (Auto) (test code = 713-8) 5.1 0.0-6.0 [facility]enBasophils (%) (Auto)2019-07-13 06:30:00* Test Item Value Reference Range Interpretation Comments Basophils (%) (Auto) (test code = 706-2) 0.4 0.0-1.0 [facility] HarlingenIM GRANULOCYTES %2019-07-13 06:30:00* Test Item Value Reference Range Interpretation Comments IM GRANULOCYTES % (test code = IM GRANULOCYTES %) 0.6 0.0- 1.0 [facility]enNeutrophils # (Auto)2019-07-13 06:30:00* Test Item Value Reference Range Interpretation Comments Neutrophils # (Auto) (test code = 751-8) 3.3 2.1-6.9 [facility]lingenLymphocytes # (Auto)2019-07-13 06:30:00* Test Item Value Reference Range Interpretation Comments Lymphocytes # (Auto) (test code = 36110-2) 1.3 1.0-3.2 [facility]enMonocytes # (Auto)2019-07-13 06:30:00* Test Item Value Reference Range Interpretation Comments Monocytes # (Auto) (test code = 742-7) 0.4 0.2-0.8 [facility]enEosinophils # (Auto)2019-07-13 06:30:00* Test Item Value Reference Range Interpretation Comments Eosinophils # (Auto) (test code = 711-2) 0.3 0.0-0.4 [facility]enBasophils # (Auto)2019-07-13 06:30:00* Test Item Value Reference Range Interpretation Comments Basophils # (Auto) (test code = 704-7) 0.0 0.0-0.1 [facility] HarlingenAbsolute Immature Granulocyte (auto 2019-07-13 06:30:00* Test Item Value Reference Range Interpretation Comments Absolute Immature Granulocyte (auto (melina t code = Absolute Immature Granulocyte (auto) 0.03 0-0.1 [facility] HarlingenDifferential Total Cells Counted 2019-07-12 06:15:00* Test Item Value Reference Range Interpretation Comments Differential Total Cells Counted (test code = Differen tial Total Cells Counted) 16 [facility]lingenNeutrophils % (Manual)2019-07-12 06:15:00 * Test Item Value Reference Range Interpretation Comments Neutrophils % (Manual) (test code = 44660-8) 56 40-74 [facility] CenterMon[facility] % (Manual)2019-07-12 06:15:00* Test Item Value Reference Range Interpretation Comments Monocytes % (Manual) (test code = 744-3) 31 3.4-9.0 H [facility]enEosinophils % (Manual)2019-07-12 06:15:00 * Test Item Value Reference Range Interpretation Comments Eosinophils % (Manual) (test code = 714-6) 13 0-7 H [facility] HarlingenDifferential Total Cells Counted 2019-07-12 06:15:00* Test Item Value Reference Range Interpretation Comments Differential Total Cells Counted (test code = Differen tial Total Cells Counted) 16 [facility]enNeutrophils % (Manual)2019-07-12 06:15:00 * Test Item Value Reference Range Interpretation Comments Neutrophils % (Manual) (test code = 03195-7) 56 40-74 [facility] CenterMonocytes % (Manual)2019-07-12 06:15:00* Test Item Value Reference Range Interpretation Comments Monocytes % (Manual) (test code = 744-3) 31 3.4-9.0 H [facility]enEosinophils % (Manual)2019-07-12 06:15:00 * Test Item Value Reference Range Interpretation Comments Eosinophils % (Manual) (test code = 714-6) 13 0-7 H [facility] HarlingenDifferential Total Cells Counted 2019-07-12 06:15:00* Test Item Value Reference Range Interpretation Comments Differential Total Cells Counted (test code = Differen tial Total Cells Counted) 16 [facility]enNeutrophils % (Manual)2019-07-12 06:15:00 * Test Item Value Reference Range Interpretation Comments Neutrophils % (Manual) (test code = 66270-3) 56 40-74 [facility] CenterMonocytes % (Manual)2019-07-12 06:15:00* Test Item Value Reference Range Interpretation Comments Monocytes % (Manual) (test code = 744-3) 31 3.4-9.0 [facility] % (Manual)2019-07-12 06:15:00 * Test Item Value Reference Range Interpretation Comments Eosinophils % (Manual) (test code = 714-6) 13 0-7 [facility]enDifferential Total Cells Counted 2019-07-12 06:15:00* Test Item Value Reference Range Interpretation Comments Differential Total Cells Counted (test code = Differen tial Total Cells Counted) 16 [facility]enNeutrophils % (Manual)2019-07-12 06:15:00 * Test Item Value Reference Range Interpretation Comments Neutrophils % (Manual) (test code = 03419-5) 56 40-74 [facility]en[facility]ocytes % ([facility]ual)2019-07-12 06:15:00* Test Item Value Reference Range Interpretation Comments Monocytes % (Manual) (test code = 744-3) 31 3.4-9.0 [facility]osin[facility] % (Manual)2019-07-12 06:15:00 * Test Item Value Reference Range Interpretation Comments Eosinophils % (Manual) (test code = 714-6) 13 0-7 [facility]enPhosphorus Fbeoa9651-96-24 05:45:00* Test Item Value Reference Range Interpretation Comments Phosphorus Level (test code = XHA9435) 2.5 2.3-4.7 [facility]enMagnesium Ijqsz7298-73-42 05:45:00* Test Item Value Reference Range Interpretation Comments Magnesium Level (test code = 60423-1) 1.5 1.3-2.1 [facility]enFluoroscopic procedure less than one hour smblterr9822-10-25 04:50:00* Test Item Value Reference Range Interpretation Comments Differential Total Cells Counted (test code = Differen tial Total Cells Counted) 16 [facility]enManual blood neutrophils/100 leukocytes 2019-07-12 04:50:00* Test Item Value Reference Range Interpretation Comments Neutrophils % (Manual) (test code = 76249-0) 56 40-74 [facility] leukocytes 2019-07-12 04:50:00* Test Item Value Reference Range Interpretation Comments Monocytes % (Manual) (test code = 744-3) 31 3.4-9.0 [facility] blood eosinophil count as percentage of total eohdiqdmzj3703-60-76 04:50:00* Test Item Value Reference Range Interpretation Comments Eosinophils % (Manual) (test code = 714-6) 13 0-7 [facility]enFluoroscopic procedure less than one hour kjzbfytv9706-52-75 04:50:00* Test Item Value Reference Range Interpretation Comments Differential Total Cells Counted (test code = Arnoljesus tial Total Cells Counted) 16 [facility]/100 leukocytes 2019-07-12 04:50:00* Test Item Value Reference Range Interpretation Comments Neutrophils % (Manual) (test code = 12691-4) 56 40-74 [facility] blood monocytes/100 leukocytes 2019-07-12 04:50:00* Test Item Value Reference Range Interpretation Comments Monocytes % (Manual) (test code = 744-3) 31 3.4-9.0 [facility] blood eosinophil count as percentage of total qehnyhsbkm9289-50-61 04:50:00* Test Item Value Reference Range Interpretation Comments Eosinophils % (Manual) (test code = 714-6) 13 0-7 [facility]enCT CHEST O2559-15-58 12:15:00 [place] [address] Patient Name: MOJGAN CUMMINGS MR #: [id number] : 1950 Age/Sex: 69/F Req #: [id number] Adm Physician: ILAN STEIN MD Ordered by: MARK ANTHONY KERNS MD Report #: [id number] Location: [facility] Room/Bed: [place] [address] Procedure: [id number] CT/CT CHEST W Exam Date: 07/11/19 Exam [...] ANTHONY KERNS MD CT SOFT TISSUE NECK S7702-03-03 12:04:00 [place] [address] Patient Name: MOJGAN CUMMINGS MR #: [id number] : 1950 Age/Sex: 69/F Req #: [id number] Adm Physician: ILAN STEIN MD Ordered by: MARK ANTHONY KERNS MD Report #: [id number] Location: [facility] Room/Bed: [place] [address] Procedure: [id number] CT/CT SOFT TISSUE NECK W Exam Date: [...] carotid bulb calcified plaque is seen. The atmospheric physicist, parapharyngeal, posterior cervical, and perivertebral spaces a [...] ANTHONY KERNS MD CHEST SINGLE (PORTABLE)2019-07-11 08:16:00 [place] [address] Patient Name: MOJGAN CUMMINGS MR #: [id number] : 1950 Age/Sex: 69/F Req #: [id number] Adm Physician: ILAN STEIN MD Ordered by: PHOENIX CIFUENTES MD Report #: [id number] Location: [facility] Room/Bed: [place] [address] Procedure: 1023-0 007 DX/CHEST SINGLE (PORTABLE) Exam [...] 07/11/19816 COPY TO: PHOENIX CIFUENTES MD Total Ekcsvyqlq4297-25-51 06:05:00* Test Item Value Reference Range Interpretation Comments Total Bilirubin (test code = 1975-2) 0.3 0.2-1.2 [facility]enAspartate Amino Transf (AST/SGOT) 2019-07-11 06:05:00* Test Item Value Reference Range Interpretation Comments Aspartate Amino Transf (AST/SGOT) (test code = Aspartate Amino Transf (AST/SGOT)) 10 5-34 [facility]enAlanine Aminotransferase (ALT/SGPT) 2019-07-11 06:05:00* Test Item Value Reference Range Interpretation Comments Alanine Aminotransferase (ALT/SGPT) (test code = 1742-6) 10 0-55 [facility]enTotal Iofunec6789-01-00 06:05:00* Test Item Value Reference Range Interpretation Comments Total Protein (test code = 2885-2) 6.1 6.5-8.1 L [facility]lingenAlbumin2019-10-23 06:05:00* Test Item Value Reference Range Interpretation Comments Albumin (test code = 1751-7) 3.1 3.5-5.0 L [facility]enGlobulin2019-10-23 06:05:00* Test Item Value Reference Range Interpretation Comments Globulin (test code = 59879-6) 3.0 2.3-3.5 [facility]enAlbumin/Globulin Lpjei6664-72-78 06:05:00 * Test Item Value Reference Range Interpretation Comments Albumin/Globulin Ratio (test code = 1759-0) 1.0 0.8-2.0 [facility]enAlkaline Nxmzzdaiayy5677-31-33 06:05:00* Test Item Value Reference Range Interpretation Comments Alkaline Phosphatase (test code = 6768-6) 98 40-150 [facility]enProthrombin Ispu6486-32-55 20:24:00* Test Item Value Reference Range Interpretation Comments Prothrombin Time (test code = 5902-2) 13.5 11.9-14.5 [facility]enProthromb Time International Ratio 2019-07-10 20:24:00* Test Item Value Reference Range Interpretation Comments Prothromb Time International Ratio (test code = 6301-6) 0.98 Oral Anticoagulant Therapy INR Values:1. Low Intensity Therapy 1.5 - 2.02 . Moderate Intensity Therapy 2.0 - 3.03. High Intensity Therapy(1) 2.5 - 3. 54. High Intensity Therapy(2) 3.0 - 4.05. Panic Value INR > 5.0 [facility]lingenActivated Partial Thromboplast Time 2019-07-10 20:24:00* Test Item Value Reference Range Interpretation Comments Activated Partial Thromboplast Time (test code = 42233-9) 28.9 23.8-35.5 [facility]enCHEST [facility]INGLE ([facility]ABLE)2019-07-10 19:54:00 [place] [address] Patient Name: MOJGAN CUMMINGS MR #: [id number] : 1950 Age/Sex: 69/F Req #: [id number] Adm Physician: Ordered by: PHOENIX CIFUENTES MD Report #: [id number] Location: ER Room/Bed: Procedure: 102 68 DX/CHEST SINGLE (PORTABLE) Exam Date: 07/10/19 Ex am Time: 1950 REPORT STATUS: Signed EXAMINATION: CHEST SINGLE (PORTABLE) INDICATION: Hemoptysis hemoptysis [id number] 1951 Y COMPARISON: 06/14/2019 D ISCUSSION: Portable technique, [...] on 1960 COPY TO: PHOENIX CIFUENTES MD PSTNQAREIBGW9858-44-94 05:54:0010.7[facility] LutmexgFKCSGROETEME7100-42-30 05:54:37555Fautakss Jet ELBOJVWNNDQD4812-82-77 05:54:0026[facility] OhqwrewOLCNFSJJSAKM1631-91-18 05:54:00 0.80[facility] DydtaldQTVMHGUOFOCT5606-32-95 05:54:83422Ksagieqh Jet MTOZOCTTDBUM5858-29-51 05:54:003.7[facility] KtcsdoxFLULHFQGCNAQ5093-13-87 05:54:94404Wolupmzu KzgutvzYKFHNBKPMTGV4826-37-62 05:54:0029[facility] DFYFQJTEMUZF1694-48-30 05:54:009.5[facility] CtjtpsyRORVOJWTFOKO2700-47-58 05:54:0074[facility] GyrlnkxAUWFBGEQFD2877-90-44 05:54:0065.2[facility] WKGPZQDOOT8011-24-58 05:54:0023.3[facility] XqqqhggLDLXMBCFFX5749-22-16 05:54:00 7.5[facility] XogsftsRLRLCLRXKF3664-90-45 05:54:003.4[facility] HermannHEMATOLOGY 2019-07-01 05:54:000.6[facility] LinytvjSBDZEJNFPI6565-02-42 05:54:004.7[facility] KnizpjiAMZKZGOCSB4384-57-95 05:54:001.7[facility] AwczbrvDXAEQFCNNI7727-64-20 05:54:000.5[facility] UolnrtzXSONZAYMRY5490-88-78 05:54:000.2[facility] PMHXCXRNCW4819-75-43 05:54:007.3[facility] OedlnucXSJDCIYOXZ4962-92-12 05:54:00 3.85[facility] AsvnpwxMSOACHCAIN9182-76-40 05:54:0011.8[facility] HermannHEMATOLOGY 2019-07-01 05:54:0035.6[facility] JmjuigvMXTRJOTFWQ7021-27-70 05:54:0092.6[facility] UftfqzxJOWGNPCYDQ1607-03-72 05:54:00* Test Item Value Reference Range Interpretation Comments MCH (test code = MCH) 30.7 pg 27.0-31.0 [facility] CxotvbnMAHTFXNKGL0760-88-13 05:54:0033.1[facility]annHEMATOLOGY 2019-07-01 05:54:0012.2[facility] YrxjwkgTCZXYYHLJX7256-46-07 05:54:0021[facility] VfsaslnPWCGXLEPBT7085-47-74 05:54:0012.4[facility] VytwnggLEXAJNBREQ1430-00-37 09:35:0055.9[facility] UizqmvgDPOGKFSFFY7926-20-63 09:35:0032.5[facility] CZBCTXYIBV6556-29-76 09:35:007.0[facility] WrcdhmyRIRKHBXJQA1883-14-06 09:35:004.2 [facility] QxmfhvfVLWEUMDGPP1648-16-13 09:35:000.4[facility] HermannHEMATOLOGY 2019-06-30 09:35:002.7[facility] GkmzhspSPBKFWLBNG8565-67-74 09:35:001.6[facility] TzzkcqoPPPCEORLHJ7785-68-09 09:35:000.3[facility] YlunsafEKSFKFXGLB3253-16-96 09:35:000.2[facility] XsvgroeHYGRRZZTXS0080-91-82 09:35:004.8[facility] Jet IXZZVQRXNT0059-62-58 09:35:003.49[facility] GsntoytVNEMDOSMRY9127-17-42 09:35:00 10.8[facility] YgwwvnnLRNDAZAPMM6754-75-94 09:35:0032.5[facility]annHEMATOLOGY 2019-06-30 09:35:0093.0[facility] KhjgkshNCPBSFDQSM7059-65-47 09:35:00* Test Item Value Reference Range Interpretation Comments MCH (test code = MCH) 30.9 pg 27.0-31.0 [facility] MufrncrZBFMJSJWYE9883-60-56 09:35:0033.2[facility]annHEMATOLOGY 2019-06-30 09:35:0012.2[facility] EphagikRJATCRGFBC5072-50-21 09:35:0019[facility] UpueiloSZXUTNPPVP5288-31-88 09:35:0011.8[facility] HermannANEMIA FJUXR7316-70-71 23:50:40284Rqkcrnhi HermannANEMIA NUWRU0064-68-47 23:50:0046.0[facility] Jet ANEMIA HBJOW7799-31-74 23:50:36202Toztfvgr HermannCHEM GKMSA2468-81-13 23:50:00 203[facility] HermannCHEM XKJIT4784-16-76 23:50:0078[facility] HermannCHEM PANEL 2019-06-28 23:50:0014Mem[facility] HermannCHEM YRKCK7464-92-33 23:50:000.78[facility] HermannCHEM LTRHK6103-91-95 23:50:12227Qovuyehk HermannCHEM AHMTI7661-24-74 23:50:003.5[facility] HermannCHEM RBFRF4557-14-88 23:50:53605Stvcegic HermannCHEM DMNAZ9084-32-31 23:50:0027[facility] HermannCHEM GCYOL1882-73-42 23:50:009.0 [facility] HermannCHEM OGFKX6319-31-17 23:50:006.7[facility] HermannCHEM PANEL 2019-06-28 23:50:003.7[facility] HermannCHEM QVTEI8954-80-11 23:50:0015[facility] HermannCHEM FFLTB0668-65-93 23:50:0013[facility] HermannCHEM LLGPS4050-60-03 23:50:43058Vpdmdnby HermannCHEM JTEJX4387-17-83 23:50:000.4[facility] HermannCHEM EHUCX4029-52-75 23:50:0077[facility] HermannCHEM UKDEE2765-39-38 23:50:0014.5 [facility] HermannCHEM JXOQY5391-83-84 23:50:00* Test Item Value Reference Range Interpretation Comments B/C Ratio (test code = B/C Ratio) 18 1 6-25 [facility] HermannCHEM XFFCR5060-25-75 23:50:003.0[facility] HermannCHEM PANEL 2019-06-28 23:50:00* Test Item Value Reference Range Interpretation Comments A/G Ratio (test code = A/G Ratio) 1.2 1 0.7-1.6 [facility] YybovxsXTRBIHYIRD6990-36-89 23:50:009.3[facility] HermannHEMATOLOGY 2019-06-28 23:50:003.77[facility] WjvtjvfBMAGTITLKH2301-98-15 23:50:0011.5[facility] ZzezmrzTPCOHDRHQY4634-79-55 23:50:0035.1[facility] JrvmhwoYWKEMMPINH5853-56-54 23:50:0092.9[facility] SuazlvhKWUKZHKZBK0446-06-92 23:50:00* Test Item Value Reference Range Interpretation Comments MCH (test code = MCH) 30.6 pg 27.0-31.0 [facility] QwpwicmCCHDJZTQYU3279-73-11 23:50:0032.9[facility] HermannHEMATOLOGY 2019-06-28 23:50:0012.4[facility] NyshccgWVILQDNGNJ4699-04-90 23:50:0031[facility] ArzmsquRAWKODYZQW9592-79-18 23:50:0015.5[facility] VpegsbjDZMNDKAPWT9883-28-65 23:50:0070.1[facility] GllkxmlKTXVSNHAJC2211-04-26 23:50:0022.0[facility] MBTPYJHGLR6119-85-58 23:50:005.6[facility] SdrimkbDJWOXUCEEP9462-74-64 23:50:002.0 [facility] WhanwnaDDFCXBPRRG6077-79-81 23:50:000.3[facility] HermannHEMATOLOGY 2019-06-28 23:50:006.5[facility] CbssokdIBSXOQCMRR9938-66-02 23:50:002.1[facility] RwfofpfZUKCFWMTZS7924-40-51 23:50:000.5[facility] UqzoyhqLYAZKJOPGA2880-19-63 23:50:000.2[facility] OmteackNEXBUCMGPH9307-23-04 23:50:40019Vddecjgs Jet WXIZAHNOBL4313-62-16 23:50:00Negative *NA*(06/28/19 6:50 PM)[facility] LCZFKOKKMD2065-61-06 23:50:00Negative *NA*(06/28/19 6:50 PM)[facility] QUDRXWULUF8514-61-80 23:50:00Negative *NA*(06/28/19 6:50 PM)[facility] HTWZHPTFDI0418-37-21 23:50:00Negative *NA*(06/28/19 6:50 PM)[facility] LCXTVYCZXR0956-06-11 23:50:00Negative *NA*(06/28/19 6:50 PM)[facility] ZHMFC2945-89-07 23:50:95325Ibbwvsbl FlncxxpGCYSAZUDEZ6018-49-56 01:46:0020 [facility] HermannBLOOD BANK LLSOXZK2819-47-96 20:54:00Positive 4(06/27/19 3:54 PM) [facility] HermannCHEM WQECM9174-45-43 20:54:92500Bsvuianh HermannCHEM PANEL 2019-06-27 20:54:0015[facility] HermannCHEM MJYOG1071-04-66 20:54:000.79[facility] HermannCHEM CKKLM3410-87-40 20:54:25900Xtvtvpgh HermannCHEM DFAFN8201-52-90 20:54:004.0[facility] HermannCHEM IJYWN8482-63-42 20:54:97370Wnyryqca HermannCHEM LMLOF5554-99-31 20:54:0026[facility] HermannCHEM OWGMA0702-71-56 20:54:0010.5 [facility] HermannCHEM EZOVU5998-36-00 20:54:0076[facility] HermannCHEM PANEL 2019-06-27 20:54:0015.0[facility] IvqrwmmGJQGIBFWEV0742-10-20 20:54:00* Test Item Value Reference Range Interpretation Comments INR (test code = INR) 0.99 1 0.85-1.17 [facility] UlhqaamPYCBFZFNNS9397-98-11 20:54:00* Test Item Value Reference Range Interpretation Comments PT (test code = PT) 12.9 s 12.0-14.7 [facility] EfonnvkFJGYIYJXHS1551-68-56 20:54:00* Test Item Value Reference Range Interpretation Comments PTT (test code = PTT) 28.6 s 22.9-35.8 [facility] UvdshruYHVAGDPHCS0831-43-40 20:54:00Normal (06/27/19 3:54 PM)[facility] TtslfluGQVOGMSFXP1858-25-40 20:54:00Normal (06/27/19 3:54 PM)[facility] CHEST [facility] (PORTABLE)2019-06-14 19:09:00 [place] [address] Patient Name: MOJGAN CUMMINGS MR #: [id number] : 1950 Age/Sex: 69/F Req #: [id number] Adm Physician: Ordered by: CAITLYN MOSS SHOT DROPPER Report #: [id number] Location: Room/Bed: Procedure: [id number] DX /CHEST SINGLE (PORTABLE) Exam Date: 06/14/19 [...] LANTIGUA DO 10 COPY TO: SMITH MOSS SHOT DROPPER Bedside Gobagup6036-42-12 07:21:00* Test Item Value Reference Range Interpretation Comments Bedside Glucose (test code = 05283-9) 92 70-120 Meter ID: [id number] [facility] 2019-05-18 07:21:00* Test Item Value Reference Range Interpretation Comments Bedside Glucose (test code = 55982-8) 92 70-120 Meter ID: [id number] [facility] CenterBlood [facility] 2019-05-12 03:20:00* Test Item Value Reference Range Interpretation Comments Blood Culture (test code = 74623626) NO GROWTH AFTER 5 DAYS, FINAL REPORT [facility] Csufxgb3975-44-57 03:20:00* Test Item Value Reference Range Interpretation Comments Blood Culture (test code = 87408623) NO GROWTH AFTER 5 DAYS, [facility] Zdwiqtv2116-54-04 03:20:00* Test Item Value Reference Range Interpretation Comments Blood Culture (test code = 31248068) NO GROWTH AFTER 5 DAYS, FINAL REPORT [facility] Anidxiq4210-97-46 03:20:00* Test Item Value Reference Range Interpretation Comments Blood Culture (test code = 91444400) NO GROWTH AFTER 5 DAYS, FINAL REPORT [facility] Qustrly9430-28-71 03:20:00* Test Item Value Reference Range Interpretation Comments Blood Culture (test code = 07499715) NO GROWTH AFTER 5 DAYS, FINAL REPORT [facility] Jbjzvyl2188-46-82 15:58:00* Test Item Value Reference Range Interpretation Comments Bedside Glucose (test code = 47726-7) 100 70-120 Meter ID: [id number] – HarlingenClostridium Difficile Toxin A & P6325-56-28 13:58:00* Test Item Value Reference Range Interpretation Comments Clostridium Difficile Toxin A & B (test code = 778648285) POSI TIVE NEGATIVE H Results called to KOBI MCCLOUD at 1358 on 05/10/19 by Mark Aguirre. RB [place].Results called to TORITO ARCOS in infection control at 1358 on 05/10/19 by Marc ofreedom Aguirre.Testing on stool aspirate specimens is outside supervisor uranium processing claims since specimen type not validated on this assay.[facility]lingenClostridium Difficile Toxin A & A4255-52-31 13:58:00* Test Item Value Reference Range Interpretation Comments Clostridium Difficile Toxin A & B (test code = 948875821) POSI TIVE NEGATIVE H Results called to KOBI MCCLOUD at 1358 on 05/10/19 by Mark Aguirre. RB OK.Results called to TORITO ARCOS in infection control at 1358 on 05/10/19 by [facility]fre[facility] Aguirre.Testing on stool aspirate specimens is outside supervisor uranium processing claims since specimen type not validated on this assay.[facility]lingenClostridium Difficile Toxin A & C1458-91-85 13:58:00* Test Item Value Reference Range Interpretation Comments Clostridium Difficile Toxin A & B (test code = 107001988) POSI TIVE NEGATIVE H Results called to KOBI MCCLOUD at 1358 on 05/10/19 by Heathercofreedom Aguirre. RB OK.Results called to TORITO ARCOS in infection control at 1358 on 05/10/19 by [facility] ofreedom Aguirre.Testing on stool aspirate specimens is outside supervisor uranium processing claims since specimen type not validated on this assay.[facility]enClostridium Difficile Toxin A & W3227-16-88 13:58:00* Test Item Value Reference Range Interpretation Comments Clostridium Difficile Toxin A & B (test code = 392718927) POSI TIVE NEGATIVE H Results called to KOBI AME at 1358 on 05/10/19 by Mark Aguirre. RB OK.Results called to TORITO ARCOS in infection control at 1358 on 05/10/19 by [facility] ofreedom Aguirre.Testing on stool aspirate specimens is outside supervisor uranium processing claims since specimen type not validated on this assay.[facility]lingenClostridium Difficile Toxin A & U4736-71-60 13:58:00* Test Item Value Reference Range Interpretation Comments Clostridium Difficile Toxin A & B (test code = 717326796) POSI TIVE NEGATIVE H Results called to KOBI GRUBBSS at 1358 on 05/10/19 by Yacofreedom Aguirre. RB OK.Results called to TORITO ARCOS in infection control at 1358 on 05/10/19 by Marc ofreedom Aguirre.Testing on stool aspirate specimens is outside supervisor uranium processing claims since specimen type not validated on this assay.[facility]lingenClostridium Difficile Toxin A & X3417-72-28 13:58:00* Test Item Value Reference Range Interpretation Comments Clostridium Difficile Toxin A & B (test code = 424857830) POSI TIVE NEGATIVE H Results called to KOBI GRUBBSS at 1358 on 05/10/19 by Yacofreedom Aguirre. RB OK.Results called to TORITO ARCOS in infection control at 1358 on 05/10/19 by Marc Aguirre.Testing on stool aspirate specimens is outside supervisor uranium processing claims since specimen type not validated on this assay.[facility]lingenFolate2019-08-22 11:24:00* Test Item Value Reference Range Interpretation Comments Folate (test code = 2284-8) 29.8 7.0-15.4 H [facility] HarlingenFolate2019-08-22 11:24:00* Test Item Value Reference Range Interpretation Comments Folate (test code = 2284-8) 29.8 7.0-15.4 H [facility] Har[facility]enFolate2019-08-22 11:24:00* Test Item Value Reference Range Interpretation Comments Folate (test code = 2284-8) 29.8 7.0-15.4 H [facility]enFolate2019-08-22 11:24:00* Test Item Value Reference Range Interpretation Comments Folate (test code = 2284-8) 29.8 7.0-15.4 H [facility]enFolate2019-08-22 11:24:00* Test Item Value Reference Range Interpretation Comments Folate (test code = 2284-8) 29.8 7.0-15.4 H [facility]enFolate2019-08-22 11:24:00* Test Item Value Reference Range Interpretation Comments Folate (test code = 2284-8) 29.8 7.0-15.4 H [facility]enVitamin B12 Wwgas8316-92-38 10:17:00* Test Item Value Reference Range Interpretation Comments Vitamin B12 Level (test code = 95802-6) 554 213-816 [facility] HarlingenVitamin B12 Tkqgm4593-58-04 10:17:00* Test Item Value Reference Range Interpretation Comments Vitamin B12 Level (test code = 05592-4) 554 213-816 [facility]lingenVitamin B12 Gyiqm0622-05-74 10:17:00* Test Item Value Reference Range Interpretation Comments Vitamin B12 Level (test code = 10394-7) 554 213-816 [facility]lingenFerritin2019-08-22 09:35:00* Test Item Value Reference Range Interpretation Comments Ferritin (test code = 2276-4) 600.24 4.63-204.00 H [facility]lingenFerritin2019-08-22 09:35:00* Test Item Value Reference Range Interpretation Comments Ferritin (test code = 2276-4) 600.24 4.63-204.00 H [facility]lingenFerritin2019-08-22 09:35:00* Test Item Value Reference Range Interpretation Comments Ferritin (test code = 2276-4) 600.24 4.63-204.00 H [facility]lingenDifferential Total Cells Counted 2019-05-10 07:53:00* Test Item Value Reference Range Interpretation Comments Differential Total Cells Counted (test code = Arnoljesus tial Total Cells Counted) 100 [facility]enNeutrophils % (Manual)2019-05-10 07:53:00 * Test Item Value Reference Range Interpretation Comments Neutrophils % (Manual) (test code = 82726-0) 59 40-74 [facility]enLymphocytes % (Manual)2019-05-10 07:53:00 * Test Item Value Reference Range Interpretation Comments Lymphocytes % (Manual) (test code = 737-7) 30 19-48 [facility]enMonocytes % (Manual)2019-05-10 07:53:00* Test Item Value Reference Range Interpretation Comments Monocytes % (Manual) (test code = 744-3) 7 3.4-9.0 [facility]enEosinophils % (Manual)2019-05-10 07:53:00 * Test Item Value Reference Range Interpretation Comments Eosinophils % (Manual) (test code = 714-6) 4 0-7 [facility] HarlingenPlatelet Aggukwle0349-76-77 07:53:00* Test Item Value Reference Range Interpretation Comments Platelet Estimate (test code = 39287-1) MARKEDLY DECREASED [facility] HarlingenRed Cell Morphology Mbrtphi6212-01-56 07:53:00* Test Item Value Reference Range Interpretation Comments Red Cell Morphology Comment (test code = 6742-1) NORMAL [facility] HarlingenDifferential Total Cells Counted 2019-05-10 07:53:00* Test Item Value Reference Range Interpretation Comments Differential Total Cells Counted (test code = Differjesus tial Total Cells Counted) 100 [facility]enNeutrophils % (Manual)2019-05-10 07:53:00 * Test Item Value Reference Range Interpretation Comments Neutrophils % (Manual) (test code = 16314-9) 59 40-74 [facility]enLymphocytes % (Manual)2019-05-10 07:53:00 * Test Item Value Reference Range Interpretation Comments Lymphocytes % (Manual) (test code = 737-7) 30 - [facility]enMonocytes % (Manual)2019-05-10 07:53:00* Test Item Value Reference Range Interpretation Comments Monocytes % (Manual) (test code = 744-3) 7 3.4-9.0 [facility]enEosinophils % (Manual)2019-05-10 07:53:00 * Test Item Value Reference Range Interpretation Comments Eosinophils % (Manual) (test code = 714-6) 4 0-7 [facility] HarlingenPlatelet Fgilgtjq8050-10-00 07:53:00* Test Item Value Reference Range Interpretation Comments Platelet Estimate (test code = 56176-6) MARKEDLY DECREASED [facility]en[facility] Morphology Qzojlzu5223-06-76 07:53:00* Test Item Value Reference Range Interpretation Comments Red Cell Morphology Comment (test code = 6742-1) NORMAL [facility]enLymphocytes % (Manual)2019-05-10 07:53:00 * Test Item Value Reference Range Interpretation Comments Lymphocytes % (Manual) (test code = 737-7) 30 - [facility]enLymphocytes % (Manual)2019-05-10 07:53:00 * Test Item Value Reference Range Interpretation Comments Lymphocytes % (Manual) (test code = 737-7) 30 -48 [facility]enLymphocytes % (Manual)2019-05-10 07:53:00 * Test Item Value Reference Range Interpretation Comments Lymphocytes % (Manual) (test code = 737-7) [facility]enLymphocytes % (Manual)2019-05-10 07:53:00 * Test Item Value Reference Range Interpretation Comments Lymphocytes % (Manual) (test code = 737-7) [facility]enClostridium difficile A and B toxin assay 2019-05-10 07:50:00* Test Item Value Reference Range Interpretation Comments Clostridium Difficile Toxin A & B (test code = 668089642) POSI TIVE NEGATIVE Results called to KOBI MCCLOUD at 1358 on 05/10/19 by [employer]. 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 [place].Results called to TORITO ARCOS in infection control at 1358 on 05/10/19 by Marc [employer].Testing on stool aspirate specimens is outside supervisor uranium processing claims since specimen type not validated on this assay.[facility] Jkjmidz3950-78-11 06:51:00* Test Item Value Reference Range Interpretation Comments Sputum Culture (test code = 624-7) Organism: STAPHYLOCOCCUS AUREUS- MRSA [facility] Srxovvc7505-30-16 06:51:00* Test Item Value Reference Range Interpretation Comments Sputum Culture (test code = 624-7) Organism: STAPHYLOCOCCUS AUREUS- MRSA [facility] Mxzflit3403-02-82 06:51:00* Test Item Value Reference Range Interpretation Comments Sputum Culture (test code = 624-7) No Result Data Provided [facility] Snthksl4196-75-91 06:51:00* Test Item Value Reference Range Interpretation Comments Sputum Culture (test code = 624-7) No Result Data Provided [facility] Ezxeolh2723-23-49 06:51:00* Test Item Value Reference Range Interpretation Comments Sputum Culture (test code = 624-7) No Result Data Provided [facility] Xglegql4453-90-50 06:51:00* Test Item Value Reference Range Interpretation Comments Sputum Culture (test code = 624-7) No Result Data Provided [facility] Xenfq7599-12-91 04:04:00* Test Item Value Reference Range Interpretation Comments Sodium Level (test code = 2951-2) 133 136-145 L [facility]enPotassium Bqlou1795-29-41 04:04:00* Test Item Value Reference Range Interpretation Comments Potassium Level (test code = 2823-3) 3.6 3.5-5.1 [facility]enChloride Zskea2164-51-15 04:04:00* Test Item Value Reference Range Interpretation Comments Chloride Level (test code = 2075-0) 98 98-107 [facility] HarlingenCarbon Dioxide Eumir6671-07-09 04:04:00* Test Item Value Reference Range Interpretation Comments Carbon Dioxide Level (test code = 2028-9) 27 22-29 [facility] Har[facility]enAnion Nsu3848-88-23 04:04:00* Test Item Value Reference Range Interpretation Comments Anion Gap (test code = 16587-3) 11.6 8-16 [facility] Har[facility]enBlood Urea Bjbzvbdi3377-95-12 04:04:00* Test Item Value Reference Range Interpretation Comments Blood Urea Nitrogen (test code = 3094-0) 18 7-26 [facility]enCreatinine2019-08-22 04:04:00* Test Item Value Reference Range Interpretation Comments Creatinine (test code = 2160-0) 0.71 0.57-1.11 [facility]enBUN/Creatinine Bpzvc9019-79-31 04:04:00* Test Item Value Reference Range Interpretation Comments BUN/Creatinine Ratio (test code = 3097-3) 25 6-25 [facility] HarlingenEstimat Glomerular Filtration Rate 2019-05-10 04:04:00* Test Item Value Reference Range Interpretation Comments Estimat Glomerular Filtration Rate (test code = 116007664) > 60 >60 Ranges were taken from the National Kidney Disease Education Program and the [facility] Kidney Foundation literature.Reference ranges:60 or greater: Jmodue68-38 ( for 3 consecutive months): Chronic kidney disease 15 or less: Kidney failureVal[facility] – HarlingenGlucose Oupuq6912-38-88 04:04:00* Test Item Value Reference Range Interpretation Comments Glucose Level (test code = RIU0407) 86 74-118 [facility]enCalcium Ydahc3055-68-04 04:04:00* Test Item Value Reference Range Interpretation Comments Calcium Level (test code = 44056-8) 9.9 8.4-10.2 [facility]odium Zreay7590-51-04 04:04:00* Test Item Value Reference Range Interpretation Comments Sodium Level (test code = 2951-2) 133 136-145 L [facility]enPotassium Rwfoo3515-12-19 04:04:00* Test Item Value Reference Range Interpretation Comments Potassium Level (test code = 2823-3) 3.6 3.5-5.1 [facility]enChloride Mbapz5899-93-24 04:04:00* Test Item Value Reference Range Interpretation Comments Chloride Level (test code = 2075-0) 98 98-107 [facility] HarlingenCarbon Dioxide Gyrol1647-02-80 04:04:00* Test Item Value Reference Range Interpretation Comments Carbon Dioxide Level (test code = 2028-9) 27 22-29 [facility] Har[facility]enAnion Sla1982-83-13 04:04:00* Test Item Value Reference Range Interpretation Comments Anion Gap (test code = 74936-7) 11.6 8-16 [facility]enBlood Urea Eikvzdte5402-03-22 04:04:00* Test Item Value Reference Range Interpretation Comments Blood Urea Nitrogen (test code = 3094-0) 18 7-26 [facility]enCreatinine2019-08-22 04:04:00* Test Item Value Reference Range Interpretation Comments Creatinine (test code = 2160-0) 0.71 0.57-1.11 [facility]enBUN/Creatinine Varbh7917-43-46 04:04:00* Test Item Value Reference Range Interpretation Comments BUN/Creatinine Ratio (test code = 3097-3) 25 6-25 [facility] HarlingenEstimat Glomerular Filtration Rate 2019-05-10 04:04:00* Test Item Value Reference Range Interpretation Comments Estimat Glomerular Filtration Rate (test code = 829250457) > 60 >60 Ranges were taken from the National Kidney Disease Education Program and the [facility] Kidney Foundation literature.Reference ranges:60 or greater: Tezmhd02-59 ( for 3 consecutive months): Chronic kidney disease 15 or less: Kidney failureVal[facility] – HarlingenGlucose Aetjn7968-99-85 04:04:00* Test Item Value Reference Range Interpretation Comments Glucose Level (test code = ZAU0838) 86 74-118 [facility]enCalcium Jugop5206-09-31 04:04:00* Test Item Value Reference Range Interpretation Comments Calcium Level (test code = 99975-7) 9.9 8.4-10.2 [facility]enWhite Blood Ovsrl2415-43-76 03:42:00* Test Item Value Reference Range Interpretation Comments White Blood Count (test code = 6690-2) 5.79 4.8-10.8 [facility] Har[facility]enRed Blood Wxpke9345-64-49 03:42:00* Test Item Value Reference Range Interpretation Comments Red Blood Count (test code = 789-8) 3.50 3.6-5.1 L [facility]enHemoglobin2019-08-22 03:42:00* Test Item Value Reference Range Interpretation Comments Hemoglobin (test code = 69428-5) 10.8 12.0-16.0 L [facility]enHematocrit2019-08-22 03:42:00* Test Item Value Reference Range Interpretation Comments Hematocrit (test code = 4544-3) 32.9 34.2-44.1 L [facility] HarlingenMean Corpuscular Ttgfky8303-28-79 03:42:00* Test Item Value Reference Range Interpretation Comments Mean Corpuscular Volume (test code = 787-2) 94.0 81-99 [facility]enMean Corpuscular Bnjmchmgyu1405-49-09 03:42:00* Test Item Value Reference Range Interpretation Comments Mean Corpuscular Hemoglobin (test code = 785-6) 30.9 28-32 [facility]enMean Corpuscular Hemoglobin Concent 2019-05-10 03:42:00* Test Item Value Reference Range Interpretation Comments Mean Corpuscular Hemoglobin Concent (test code = 786-4) 32.8 31-35 [facility]enRed Cell Distribution Gajly3278-84-54 03:42:00* Test Item Value Reference Range Interpretation Comments Red Cell Distribution Width (test code = 24575-3) 13.2 11.7 -14.4 [facility] HarlingenPlatelet Phedz0608-93-22 03:42:00* Test Item Value Reference Range Interpretation Comments Platelet Count (test code = 777-3) 29 140-360 LL Results repeated and called to [KIRIT ZHENG RN] at 0341 on 05/10/19 by Chantell Quigley. Read back and verified.[facility] Neutrophils (%) (Auto)2019-05-10 03:42:00* Test Item Value Reference Range Interpretation Comments Neutrophils (%) (Auto) (test code = 44633-2) 61.8 38.7-80.0 [facility]enLymphocytes (%) (Auto)2019-05-10 03:42:00 * Test Item Value Reference Range Interpretation Comments Lymphocytes (%) (Auto) (test code = 736-9) 24.0 18.0-39.1 [facility]enMonocytes (%) (Auto)2019-05-10 03:42:00* Test Item Value Reference Range Interpretation Comments Monocytes (%) (Auto) (test code = 5905-5) 8.5 4.4-11.3 [facility]enEosinophils (%) (Auto)2019-05-10 03:42:00 * Test Item Value Reference Range Interpretation Comments Eosinophils (%) (Auto) (test code = 713-8) 5.2 0.0-6.0 [facility]enBasophils (%) (Auto)2019-05-10 03:42:00* Test Item Value Reference Range Interpretation Comments Basophils (%) (Auto) (test code = 706-2) 0.3 0.0-1.0 [facility]enIM GRANULOCYTES %2019-05-10 03:42:00* Test Item Value Reference Range Interpretation Comments IM GRANULOCYTES % (test code = IM GRANULOCYTES %) 0.2 0.0- 1.0 [facility]enNeutrophils # (Auto)2019-05-10 03:42:00* Test Item Value Reference Range Interpretation Comments Neutrophils # (Auto) (test code = 751-8) 3.6 2.1-6.9 [facility]enLymphocytes # (Auto)2019-05-10 03:42:00* Test Item Value Reference Range Interpretation Comments Lymphocytes # (Auto) (test code = 42423-8) 1.4 1.0-3.2 [facility]enMonocytes # (Auto)2019-05-10 03:42:00* Test Item Value Reference Range Interpretation Comments Monocytes # (Auto) (test code = 742-7) 0.5 0.2-0.8 [facility]enEosinophils # (Auto)2019-05-10 03:42:00* Test Item Value Reference Range Interpretation Comments Eosinophils # (Auto) (test code = 711-2) 0.3 0.0-0.4 [facility]enBasophils # (Auto)2019-05-10 03:42:00* Test Item Value Reference Range Interpretation Comments Basophils # (Auto) (test code = 704-7) 0.0 0.0-0.1 [facility]enAbsolute Immature Granulocyte (auto 2019-05-10 03:42:00* Test Item Value Reference Range Interpretation Comments Absolute Immature Granulocyte (auto (melina t code = Absolute Immature Granulocyte (auto) 0.01 0-0.1 [facility]enWhite Blood Ucfyb9395-65-13 03:42:00* Test Item Value Reference Range Interpretation Comments White Blood Count (test code = 6690-2) 5.79 4.8-10.8 [facility]enRed Blood Efzai6738-36-10 03:42:00* Test Item Value Reference Range Interpretation Comments Red Blood Count (test code = 789-8) 3.50 3.6-5.1 L [facility]enHemoglobin2019-08-22 03:42:00* Test Item Value Reference Range Interpretation Comments Hemoglobin (test code = 69628-9) 10.8 12.0-16.0 L [facility]enHematocrit2019-08-22 03:42:00* Test Item Value Reference Range Interpretation Comments Hematocrit (test code = 4544-3) 32.9 34.2-44.1 L [facility]enMean Corpuscular Monaxg1526-27-37 03:42:00* Test Item Value Reference Range Interpretation Comments Mean Corpuscular Volume (test code = 787-2) 94.0 81-99 [facility]enMean Corpuscular Uybogucjjo0657-38-65 03:42:00* Test Item Value Reference Range Interpretation Comments Mean Corpuscular Hemoglobin (test code = 785-6) 30.9 28-32 [facility]enMean Corpuscular Hemoglobin Concent 2019-05-10 03:42:00* Test Item Value Reference Range Interpretation Comments Mean Corpuscular Hemoglobin Concent (test code = 786-4) 32.8 31-35 [facility]enRed Cell Distribution Hsjws2241-77-31 03:42:00* Test Item Value Reference Range Interpretation Comments Red Cell Distribution Width (test code = 50856-5) 13.2 11.7 -14.4 [facility] Har[facility]enPlatelet Abmgg1466-06-00 03:42:00* Test Item Value Reference Range Interpretation Comments Platelet Count (test code = 777-3) 29 140-360 LL Results repeated and called to [KIRIT ZHENG RN] at 0341 on 05/10/19 by Chantell Quigley. Read back and verified.[facility] Neutrophils (%) (Auto)2019-05-10 03:42:00* Test Item Value Reference Range Interpretation Comments Neutrophils (%) (Auto) (test code = 72851-7) 61.8 38.7-80.0 [facility]enLymphocytes (%) (Auto)2019-05-10 03:42:00 * Test Item Value Reference Range Interpretation Comments Lymphocytes (%) (Auto) (test code = 736-9) 24.0 18.0-39.1 [facility]enMonocytes (%) (Auto)2019-05-10 03:42:00* Test Item Value Reference Range Interpretation Comments Monocytes (%) (Auto) (test code = 5905-5) 8.5 4.4-11.3 [facility]enEosinophils (%) (Auto)2019-05-10 03:42:00 * Test Item Value Reference Range Interpretation Comments Eosinophils (%) (Auto) (test code = 713-8) 5.2 0.0-6.0 [facility]enBasophils (%) (Auto)2019-05-10 03:42:00* Test Item Value Reference Range Interpretation Comments Basophils (%) (Auto) (test code = 706-2) 0.3 0.0-1.0 [facility]enIM GRANULOCYTES %2019-05-10 03:42:00* Test Item Value Reference Range Interpretation Comments IM GRANULOCYTES % (test code = IM GRANULOCYTES %) 0.2 0.0- 1.0 [facility]enNeutrophils # (Auto)2019-05-10 03:42:00* Test Item Value Reference Range Interpretation Comments Neutrophils # (Auto) (test code = 751-8) 3.6 2.1-6.9 [facility]enLymphocytes # (Auto)2019-05-10 03:42:00* Test Item Value Reference Range Interpretation Comments Lymphocytes # (Auto) (test code = 60422-3) 1.4 1.0-3.2 [facility]enMonocytes # (Auto)2019-05-10 03:42:00* Test Item Value Reference Range Interpretation Comments Monocytes # (Auto) (test code = 742-7) 0.5 0.2-0.8 [facility]enEosinophils # (Auto)2019-05-10 03:42:00* Test Item Value Reference Range Interpretation Comments Eosinophils # (Auto) (test code = 711-2) 0.3 0.0-0.4 [facility]enBasophils # (Auto)2019-05-10 03:42:00* Test Item Value Reference Range Interpretation Comments Basophils # (Auto) (test code = 704-7) 0.0 0.0-0.1 [facility]enAbsolute Immature Granulocyte (auto 2019-05-10 03:42:00* Test Item Value Reference Range Interpretation Comments Absolute Immature Granulocyte (auto (melina t code = Absolute Immature Granulocyte (auto) 0.01 0-0.1 [facility] Har[facility]enBlood Iwhcsyt1906-19-55 03:20:00* Test Item Value Reference Range Interpretation Comments Blood Culture (test code = 70356942) NO GROWTH AFTER 72 HOURS [facility]lingenManual blood lymphocytes/100 leukocytes 2019-05-10 03:00:00* Test Item Value Reference Range Interpretation Comments Lymphocytes % (Manual) (test code = 737-7) [facility] plasma folate measurement (mass/volume)2019-05-10 03:00:00* Test Item Value Reference Range Interpretation Comments Folate (test code = 2284-8) 29.8 7.0-15.4 [facility]enManual blood lymphocytes/100 leukocytes 2019-05-10 03:00:00* Test Item Value Reference Range Interpretation Comments Lymphocytes % (Manual) (test code = 737-7) 30 - [facility] Hospitalerum or plasma folate measurement (mass/volume)2019-05-10 03:00:00* Test Item Value Reference Range Interpretation Comments Folate (test code = 2284-8) 29.8 7.0-15.4 [facility]. KBXXVMM7564-70-60 16:13:00 [place] [address] Patient Name: MOJGAN CUMMINGS MR #: [id number] : 1950 Age/Sex: 69/F Req #: [id number] Adm Physician: ILAN STEIN MD Ordered by: Pilar Simeon SHOT DROPPER Report #: [id number] Location: MED/SURG2 Room/Bed: [facility] Procedure: [id number] DX /MODIFIED BA. SWALLOW Exam Date: 05/09/19 Exam Time: 1030 REPORT STATUS: Signed M odified barium swallow, 05/09/2019. History: Aspiration. Fluoro time : 2.5 min. Dose: 13.2 mGy (WALE) Technique: Fluoroscopy was performed by medical service technician. A radiologist was not present for exam. [...] Aburto on 05/09/191612 COPY TO: PILAR SIMEON NP US ABDOMEN FJGRVIMB0091-27-35 15:35:00 [place] [address] Patient Name: MOJGAN CUMMINGS #: [id number] : 1950 Age/Sex: 69/F Req #: [id number] Adm Physician: ILAN STEIN MD Ordered by: MARK ANTHONY KERNS MD Report #: [id number] Location: [facility]/SURG2 Room/Bed: [facility] Procedure: [id number] US/US ABDOMEN COMPLETE Exam Date: 05/09/19 Exam [...] 3:45 PM Dictated By: CAITLYN BURNS MD 154 Transcribed By: BAMBI on 05/09/19 1545 COPY TO: MARK ANTHONY KERNS MD Blood Culture 2019-05-09 15:12:00* Test Item Value Reference Range Interpretation Comments Blood Culture (test code = 600-7) Organism: STAPHYLOCOCCUS SP COAG NEG [facility]2019-08-21 15:12:00* Test Item Value Reference Range Interpretation Comments Blood Culture (test code = 600-7) Organism: STAPHYLOCOCCUS SP COAG NEG [facility]2019-08-21 15:12:00* Test Item Value Reference Range Interpretation Comments Blood Culture (test code = 600-7) No Result Data Provided [facility]2019-08-21 15:12:00* Test Item Value Reference Range Interpretation Comments Blood Culture (test code = 600-7) No Result Data Provided [facility]2019-08-21 15:12:00* Test Item Value Reference Range Interpretation Comments Blood Culture (test code = 600-7) No Result Data Provided [facility]2019-08-21 15:12:00* Test Item Value Reference Range Interpretation Comments Blood Culture (test code = 600-7) No Result Data Provided [facility]2019-08-21 05:44:00* Test Item Value Reference Range Interpretation Comments Urine Culture (test code = 630-4) Organism: ESCHERICHIA COLI [facility]2019-08-21 05:44:00* Test Item Value Reference Range Interpretation Comments Urine Culture (test code = 630-4) Organism: ESCHERICHIA COLI [facility]2019-08-21 05:44:00* Test Item Value Reference Range Interpretation Comments Urine Culture (test code = 630-4) No Result Data Provided [facility]2019-08-21 05:44:00* Test Item Value Reference Range Interpretation Comments Urine Culture (test code = 630-4) No Result Data Provided [facility]enUrine Gfwfjif1779-14-99 05:44:00* Test Item Value Reference Range Interpretation Comments Urine Culture (test code = 630-4) No Result Data Provided [facility] Skthpop5230-53-70 05:44:00* Test Item Value Reference Range Interpretation Comments Urine Culture (test code = 630-4) No Result Data Provided [facility]woodgn[facility] Loesg0079-04-74 01:34:00* Test Item Value Reference Range Interpretation Comments Magnesium Level (test code = 42623-9) 1.6 1.3-2.1 [facility]enMaesium Lnoml0271-53-49 01:34:00* Test Item Value Reference Range Interpretation Comments Magnesium Level (test code = 42083-8) 1.6 1.3-2.1 [facility]enThyroid Stimulating Hormone (TSH) 2019-05-08 06:36:00* Test Item Value Reference Range Interpretation Comments Thyroid Stimulating Hormone (TSH) (test code = 74820-0) 1.678 0.350-4.940 [facility]enThyroid Stimulating Hormone (TSH) 2019-05-08 06:36:00* Test Item Value Reference Range Interpretation Comments Thyroid Stimulating Hormone (TSH) (test code = 76629-8) 1.678 0.350-4.940 [facility]enThyroid Stimulating Hormone (TSH) 2019-05-08 06:36:00* Test Item Value Reference Range Interpretation Comments Thyroid Stimulating Hormone (TSH) (test code = 96868-0) 1.678 0.350-4.940 [facility]enThyroid Stimulating Hormone (TSH) 2019-05-08 06:36:00* Test Item Value Reference Range Interpretation Comments Thyroid Stimulating Hormone (TSH) (test code = 56496-2) 1.678 0.350-4.940 [facility]enThyroid Stimulating Hormone (TSH) 2019-05-08 06:36:00* Test Item Value Reference Range Interpretation Comments Thyroid Stimulating Hormone (TSH) (test code = 01209-3) 1.678 0.350-4.940 [facility]enThyroid Stimulating Hormone (TSH) 2019-05-08 06:36:00* Test Item Value Reference Range Interpretation Comments Thyroid Stimulating Hormone (TSH) (test code = 32429-0) 1.678 0.350-4.940 [facility]enPhosphorus Vslpo6065-72-91 06:11:00* Test Item Value Reference Range Interpretation Comments Phosphorus Level (test code = HWQ0153) 2.8 2.3-4.7 [facility]enTotal Mndrisvur8861-80-66 06:11:00* Test Item Value Reference Range Interpretation Comments Total Bilirubin (test code = 1975-2) 0.3 0.2-1.2 [facility]enAspartate Amino Transf (AST/SGOT) 2019-05-08 06:11:00* Test Item Value Reference Range Interpretation Comments Aspartate Amino Transf (AST/SGOT) (test code = Aspartate Amino Transf (AST/SGOT)) 13 5-34 [facility]enAlanine Aminotransferase (ALT/SGPT) 2019-05-08 06:11:00* Test Item Value Reference Range Interpretation Comments Alanine Aminotransferase (ALT/SGPT) (test code = 1742-6) 10 0-55 [facility]enTotal Dulxfbg0926-76-43 06:11:00* Test Item Value Reference Range Interpretation Comments Total Protein (test code = 2885-2) 6.0 6.5-8.1 L [facility] Har[facility]enAlbumin2019-08-20 06:11:00* Test Item Value Reference Range Interpretation Comments Albumin (test code = 1751-7) 3.3 3.5-5.0 L [facility]enGlobulin2019-08-20 06:11:00* Test Item Value Reference Range Interpretation Comments Globulin (test code = 73985-3) 2.7 2.3-3.5 [facility]enAlbumin/Globulin Oogqx7697-06-64 06:11:00 * Test Item Value Reference Range Interpretation Comments Albumin/Globulin Ratio (test code = 1759-0) 1.2 0.8-2.0 [facility]enAlkaline Actleelxwbm5637-71-26 06:11:00* Test Item Value Reference Range Interpretation Comments Alkaline Phosphatase (test code = 6768-6) 90 40-150 [facility] Maqfo8522-37-66 06:11:00* Test Item Value Reference Range Interpretation Comments Phosphorus Level (test code = LUI9253) 2.8 2.3-4.7 [facility]en[facility] Xohmlnkga7705-79-04 06:11:00* Test Item Value Reference Range Interpretation Comments Total Bilirubin (test code = 1975-2) 0.3 0.2-1.2 [facility]enAspartate Amino Transf (AST/SGOT) 2019-05-08 06:11:00* Test Item Value Reference Range Interpretation Comments Aspartate Amino Transf (AST/SGOT) (test code = Aspartate Amino Transf (AST/SGOT)) 13 5-34 [facility]en[facility]anine Aminotransferase (ALT/SGPT) 2019-05-08 06:11:00* Test Item Value Reference Range Interpretation Comments Alanine Aminotransferase (ALT/SGPT) (test code = 1742-6) 10 0-55 [facility] Hwogbfe9239-98-42 06:11:00* Test Item Value Reference Range Interpretation Comments Total Protein (test code = 2885-2) 6.0 6.5-8.1 L [facility]enAlbumin2019-08-20 06:11:00* Test Item Value Reference Range Interpretation Comments Albumin (test code = 1751-7) 3.3 3.5-5.0 L [facility]obulin2019-08-20 06:11:00* Test Item Value Reference Range Interpretation Comments Globulin (test code = 06030-0) 2.7 2.3-3.5 [facility]enAlbumin/Globulin Njtpy8209-58-41 06:11:00 * Test Item Value Reference Range Interpretation Comments Albumin/Globulin Ratio (test code = 1759-0) 1.2 0.8-2.0 [facility]enAlkaline Ikyhpehpumt5820-47-10 06:11:00* Test Item Value Reference Range Interpretation Comments Alkaline Phosphatase (test code = 6768-6) 90 40-150 [facility] thyrotropin measurement by detection limit <= 0.005 miu/l (units/volume)2019-05-08 05:30:00* Test Item Value Reference Range Interpretation Comments Thyroid Stimulating Hormone (TSH) (test code = 10606-9) 1.678 0.350-4.940 [facility] or plasma thyrotropin measurement by detection limit <= 0.005 miu/l (units/volume)2019-05-08 05:30:00* Test Item Value Reference Range Interpretation Comments Thyroid Stimulating Hormone (TSH) (test code = 48224-5) 1.678 0.350-4.940 [facility]emoglobin A1c Ehqffng9763-48-12 05:26:00 * Test Item Value Reference Range Interpretation Comments Hemoglobin A1c Percent (test code = Hemoglobin A1c Percent) 4.6 4.0-7.0 [facility] A1c Zecgvms6410-67-36 05:26:00 * Test Item Value Reference Range Interpretation Comments Hemoglobin A1c Percent (test code = Hemoglobin A1c Percent) 4.6 4.0-7.0 [facility]enHemoglobin A1c Ldivuca9923-75-39 05:26:00 * Test Item Value Reference Range Interpretation Comments Hemoglobin A1c Percent (test code = Hemoglobin A1c Percent) 4.6 4.0-7.0 [facility]oglobin A1c Rhaoyxd1488-20-17 05:26:00 * Test Item Value Reference Range Interpretation Comments Hemoglobin A1c Percent (test code = Hemoglobin A1c Percent) 4.6 4.0-7.0 [facility]oglobin A1c Vizguok5568-45-42 05:26:00 * Test Item Value Reference Range Interpretation Comments Hemoglobin A1c Percent (test code = Hemoglobin A1c Percent) 4.6 4.0-7.0 [facility]enH[facility]oglobin A1c Pcfwdik1744-32-22 05:26:00 * Test Item Value Reference Range Interpretation Comments Hemoglobin A1c Percent (test code = Hemoglobin A1c Percent) 4.6 4.0-7.0 [facility]enFluoroscopic procedure less than one hour lvdsfhfd3213-08-61 04:20:00* Test Item Value Reference Range Interpretation Comments Hemoglobin A1c Percent (test code = Hemoglobin A1c Percent) 4.6 4.0-7.0 [facility]enFluoroscopic procedure less than one hour txdbgrhq5959-51-57 04:20:00* Test Item Value Reference Range Interpretation Comments Hemoglobin A1c Percent (test code = Hemoglobin A1c Percent) 4.6 4.0-7.0 [facility]enCreatine Hglnan3034-60-19 19:53:00* Test Item Value Reference Range Interpretation Comments Creatine Kinase (test code = 2157-6) 23 29-168 L [facility]enCreatine Lwycza8043-70-42 19:53:00* Test Item Value Reference Range Interpretation Comments Creatine Kinase (test code = 2157-6) 23 29-168 L [facility]enCreatine Haexzo5085-15-82 19:53:00* Test Item Value Reference Range Interpretation Comments Creatine Kinase (test code = 2157-6) 23 29-168 L [facility]enCreatine Purseg4381-69-21 19:53:00* Test Item Value Reference Range Interpretation Comments Creatine Kinase (test code = 2157-6) 23 29-168 L [facility]enCreatine Ixrvcg7926-42-05 19:53:00* Test Item Value Reference Range Interpretation Comments Creatine Kinase (test code = 2157-6) 23 29-168 L [facility]enCreat[facility] Kinase [id number] 19:49:00* Test Item Value Reference Range Interpretation Comments Creatine Kinase MB (test code = 46249-5) 0.40 0-5.0 [facility]enTroponin [id number] 19:49:00* Test Item Value Reference Range Interpretation Comments Troponin I (test code = TPM1912) < 0.001 0-0.300 [facility]enCreatine Kinase [id number] 19:49:00* Test Item Value Reference Range Interpretation Comments Creatine Kinase MB (test code = 89706-1) 0.40 0-5.[address] [facility] [id number] 19:49:00* Test Item Value Reference Range Interpretation Comments Troponin I (test code = YDS7943) < 0.001 0-0.300 [facility]enCreat[facility] Kinase IY9497-03-10 19:49:00* Test Item Value Reference Range Interpretation Comments Creatine Kinase MB (test code = 97715-6) 0.40 0-5.0 [place] [id number] 19:49:00* Test Item Value Reference Range Interpretation Comments Troponin I (test code = GAC1593) < 0.001 0-0.300 [facility]enCreat[facility] Kinase [id number] 19:49:00* Test Item Value Reference Range Interpretation Comments Creatine Kinase MB (test code = 32551-2) 0.40 0-5.0 [place] [id number] 19:49:00* Test Item Value Reference Range Interpretation Comments Troponin I (test code = MAT8917) < 0.001 0-0.300 [facility]enCreat[facility] Kinase [id number] 19:49:00* Test Item Value Reference Range Interpretation Comments Creatine Kinase MB (test code = 49762-4) 0.40 0-5.0 [place] [id number] 19:49:00* Test Item Value Reference Range Interpretation Comments Troponin I (test code = LHZ7456) < 0.001 0-0.300 [facility]enBacteria identification in sputum by respiratory ixhypdv0239-48-18 05:06:00* Test Item Value Reference Range Interpretation Comments Sputum Culture (test code = 624-7) STAPHYLOCOCCUS AUREUS-MRSA [facility]enBacteria identification in sputum by respiratory euvstos0202-54-63 05:06:00* Test Item Value Reference Range Interpretation Comments Sputum Culture (test code = 624-7) STAPHYLOCOCCUS AUREUS-MRSA [facility]enB[facility] Natriuretic Iwiadxm7075-07-08 03:57:00* Test Item Value Reference Range Interpretation Comments B-Type Natriuretic Peptide (test code = 81068-2) 84.4 0-100 [facility]enB[facility] Natriuretic Bethxcx2668-77-03 03:57:00* Test Item Value Reference Range Interpretation Comments B-Type Natriuretic Peptide (test code = 84660-5) 84.4 0-100 [facility]enB[facility] Natriuretic Ujgxyot9370-86-97 03:57:00* Test Item Value Reference Range Interpretation Comments B-Type Natriuretic Peptide (test code = 34162-4) 84.4 0-100 [facility]enB[facility] Natriuretic Qwhkmsq5138-80-65 03:57:00* Test Item Value Reference Range Interpretation Comments B-Type Natriuretic Peptide (test code = 65885-8) 84.4 0-100 [facility]enLipase2019-08-19 03:46:00* Test Item Value Reference Range Interpretation Comments Lipase (test code = 3040-3) < 4 8-78 L [facility]enLipase2019-08-19 03:46:00* Test Item Value Reference Range Interpretation Comments Lipase (test code = 3040-3) < 4 8-78 L [facility]enLipase2019-08-19 03:46:00* Test Item Value Reference Range Interpretation Comments Lipase (test code = 3040-3) < 4 8-78 L [facility]enLipase2019-08-19 03:46:00* Test Item Value Reference Range Interpretation Comments Lipase (test code = 3040-3) < 4 8-78 L [facility]enLipase2019-08-19 03:46:00* Test Item Value Reference Range Interpretation Comments Lipase (test code = 3040-3) < 4 8-78 L [facility]enLipase2019-08-19 03:46:00* Test Item Value Reference Range Interpretation Comments Lipase (test code = 3040-3) < 4 8-78 L [facility]enUrine RTP3634-89-88 03:45:00* Test Item Value Reference Range Interpretation Comments Urine WBC (test code = 5821-4) 21-50 0-5 H [facility] YCV1745-83-25 03:45:00* Test Item Value Reference Range Interpretation Comments Urine RBC (test code = 94949-8) 6-10 0-5 H [facility] Wtdyoxwq3728-95-72 03:45:00* Test Item Value Reference Range Interpretation Comments Urine Bacteria (test code = 52070-2) MANY NONE H [facility]enU[facility] Epithelial Okhxn2000-19-35 03:45:00 * Test Item Value Reference Range Interpretation Comments Urine Epithelial Cells (test code = 36861-5) FEW NONE [facility] Amorphous Fqlvefim7274-48-94 03:45:00* Test Item Value Reference Range Interpretation Comments Urine Amorphous Sediment (test code = 8246-1) MODERATE FEW H [facility] PGZ3612-23-93 03:45:00* Test Item Value Reference Range Interpretation Comments Urine WBC (test code = 5821-4) 21-50 0-5 H [facility] TUZ7084-92-72 03:45:00* Test Item Value Reference Range Interpretation Comments Urine RBC (test code = 80979-0) 6-10 0-5 H [facility] Oftbfsch0482-97-42 03:45:00* Test Item Value Reference Range Interpretation Comments Urine Bacteria (test code = 52909-0) MANY NONE H [facility] Epithelial Rioyy3370-98-89 03:45:00 * Test Item Value Reference Range Interpretation Comments Urine Epithelial Cells (test code = 12927-0) FEW NONE [facility] Amorphous Dauzxwxu9512-74-95 03:45:00* Test Item Value Reference Range Interpretation Comments Urine Amorphous Sediment (test code = 8246-1) MODERATE FEW H [facility] CJA6880-96-49 03:45:00* Test Item Value Reference Range Interpretation Comments Urine WBC (test code = 5821-4) 21-50 0-5 H [facility] [id number] 03:45:00* Test Item Value Reference Range Interpretation Comments Urine RBC (test code = 83077-3) 6-10 0-5 H [facility] Apfhqbqp4467-36-68 03:45:00* Test Item Value Reference Range Interpretation Comments Urine Bacteria (test code = 96740-2) MANY NONE H [facility] Epithelial Mxbfy8673-38-15 03:45:00 * Test Item Value Reference Range Interpretation Comments Urine Epithelial Cells (test code = 88126-3) FEW NONE [facility] Amorphous Nphqqobf3640-91-03 03:45:00* Test Item Value Reference Range Interpretation Comments Urine Amorphous Sediment (test code = 8246-1) MODERATE FEW H [facility] HOR6425-49-71 03:45:00* Test Item Value Reference Range Interpretation Comments Urine WBC (test code = 5821-4) 21-50 0-5 H [facility] HNB1419-31-22 03:45:00* Test Item Value Reference Range Interpretation Comments Urine RBC (test code = 04219-9) 6-10 0-5 H [facility] Wlosodbe4308-20-04 03:45:00* Test Item Value Reference Range Interpretation Comments Urine Bacteria (test code = 95160-2) MANY NONE H [facility] Epithelial Jsevd3887-09-95 03:45:00 * Test Item Value Reference Range Interpretation Comments Urine Epithelial Cells (test code = 77725-4) FEW NONE [facility] Amorphous Xlqvwytk0427-87-20 03:45:00* Test Item Value Reference Range Interpretation Comments Urine Amorphous Sediment (test code = 8246-1) MODERATE FEW H [facility] EDV5150-47-34 03:45:00* Test Item Value Reference Range Interpretation Comments Urine WBC (test code = 5821-4) 21-50 0-5 H [facility] ELT8388-46-00 03:45:00* Test Item Value Reference Range Interpretation Comments Urine RBC (test code = 52162-5) 6-10 0-5 H [facility] Lsxndaft2796-58-73 03:45:00* Test Item Value Reference Range Interpretation Comments Urine Bacteria (test code = 75686-1) MANY NONE [facility] Epithelial Lpwmk7093-96-53 03:45:00 * Test Item Value Reference Range Interpretation Comments Urine Epithelial Cells (test code = 86465-5) FEW NONE [facility] Amorphous Rxoikujo0737-70-76 03:45:00* Test Item Value Reference Range Interpretation Comments Urine Amorphous Sediment (test code = 8246-1) MODERATE FEW H [facility] IDM3281-99-93 03:45:00* Test Item Value Reference Range Interpretation Comments Urine WBC (test code = 5821-4) 21-50 0-5 H [facility] LHI3849-28-61 03:45:00* Test Item Value Reference Range Interpretation Comments Urine RBC (test code = 96384-6) 6-10 0-5 H [facility] Bujxfkzy1960-52-95 03:45:00* Test Item Value Reference Range Interpretation Comments Urine Bacteria (test code = 58812-9) [facility] NONE [facility] Ecito3280-15-44 03:45:00 * Test Item Value Reference Range Interpretation Comments Urine Epithelial Cells (test code = 26198-1) FEW NONE [facility] Amorphous Svvshiro8614-90-54 03:45:00* Test Item Value Reference Range Interpretation Comments Urine Amorphous Sediment (test code = 8246-1) MODERATE FEW H [facility] Uzwxj8684-80-38 03:36:00* Test Item Value Reference Range Interpretation Comments Urine Color (test code = 5778-6) YELLOW YELLOW [facility] Csaedzs0645-95-05 03:36:00* Test Item Value Reference Range Interpretation Comments Urine Clarity (test code = 31425-6) CLOUDY CLEAR H [facility] Specific Hhudaom5742-18-62 03:36:00 * Test Item Value Reference Range Interpretation Comments Urine Specific Welling (test code = 5811-5) 1.015 1.010-1.02 5 [facility] gO5215-09-62 03:36:00* Test Item Value Reference Range Interpretation Comments Urine pH (test code = 76423-7) 7 5-7 [facility] Leukocyte Mabggpkw9239-09-90 03:36:00* Test Item Value Reference Range Interpretation Comments Urine Leukocyte Esterase (test code = 33570-3) LARGE NEGATIV E [facility] Vwcszid9609-02-12 03:36:00* Test Item Value Reference Range Interpretation Comments Urine Nitrite (test code = 21673-5) POSITIVE NEGATIVE H [facility] Qmrizjl6133-13-70 03:36:00* Test Item Value Reference Range Interpretation Comments Urine Protein (test code = 90775-7) NEGATIVE NEGATIVE [facility] Glucose (UA)2019-05-07 03:36:00* Test Item Value Reference Range Interpretation Comments Urine Glucose (UA) (test code = 51402-3) NEGATIVE NEGATIVE [facility] Hzlvlpj6036-79-70 03:36:00* Test Item Value Reference Range Interpretation Comments Urine Ketones (test code = 33667-9) NEGATIVE NEGATIVE [facility] Tbyjfkfzjvsl2024-88-44 03:36:00* Test Item Value Reference Range Interpretation Comments Urine Urobilinogen (test code = 39751-5) 0.2 0.2-1 [facility] Qcbvlsrwb3038-03-96 03:36:00* Test Item Value Reference Range Interpretation Comments Urine Bilirubin (test code = 1977-8) NEGATIVE NEGATIVE [facility] Twtus0111-61-53 03:36:00* Test Item Value Reference Range Interpretation Comments Urine Blood (test code = 54891-4) TRACE NEGATIVE [facility] Jfvop1241-96-34 03:36:00* Test Item Value Reference Range Interpretation Comments Urine Color (test code = 5778-6) YELLOW YELLOW [facility] Yldhmxz8794-77-97 03:36:00* Test Item Value Reference Range Interpretation Comments Urine Clarity (test code = 01663-6) CLOUDY CLEAR H [facility] Specific Tpbvghi9095-41-93 03:36:00 * Test Item Value Reference Range Interpretation Comments Urine Specific Welling (test code = 5811-5) 1.015 1.010-1.02 5 [facility] lI7901-32-31 03:36:00* Test Item Value Reference Range Interpretation Comments Urine pH (test code = 01161-4) 7 5-7 [facility] Leukocyte Pjsihhfd7073-54-59 03:36:00* Test Item Value Reference Range Interpretation Comments Urine Leukocyte Esterase (test code = 71062-9) LARGE NEGATIV E [facility] Ypqcfqv2729-65-59 03:36:00* Test Item Value Reference Range Interpretation Comments Urine Nitrite (test code = 32484-5) POSITIVE NEGATIVE H [facility] Fxumyjp1519-88-87 03:36:00* Test Item Value Reference Range Interpretation Comments Urine Protein (test code = 52135-4) NEGATIVE NEGATIVE [facility] Glucose (UA)2019-05-07 03:36:00* Test Item Value Reference Range Interpretation Comments Urine Glucose (UA) (test code = 36003-4) NEGATIVE NEGATIVE [facility] Ksackfy4936-22-59 03:36:00* Test Item Value Reference Range Interpretation Comments Urine Ketones (test code = 10680-0) NEGATIVE NEGATIVE [facility] Ubsnmmangdiz2019-68-49 03:36:00* Test Item Value Reference Range Interpretation Comments Urine Urobilinogen (test code = 07297-5) 0.2 0.2-1 [facility] Eihnqmepu9626-38-44 03:36:00* Test Item Value Reference Range Interpretation Comments Urine Bilirubin (test code = 1977-8) NEGATIVE NEGATIVE [facility] Qquru8122-18-20 03:36:00* Test Item Value Reference Range Interpretation Comments Urine Blood (test code = 71455-8) TRACE NEGATIVE [facility] Jdxay5308-70-62 03:36:00* Test Item Value Reference Range Interpretation Comments Urine Color (test code = 5778-6) YELLOW YELLOW [facility] Nhhtevh6735-43-18 03:36:00* Test Item Value Reference Range Interpretation Comments Urine Clarity (test code = 63404-9) CLOUDY CLEAR H [facility] Specific Plindmi6028-69-00 03:36:00 * Test Item Value Reference Range Interpretation Comments Urine Specific Welling (test code = 5811-5) 1.015 1.010-1.02 5 [facility] cL1540-98-72 03:36:00* Test Item Value Reference Range Interpretation Comments Urine pH (test code = 51196-8) 7 5-7 [facility] Leukocyte Khwtgnbq0947-24-08 03:36:00* Test Item Value Reference Range Interpretation Comments Urine Leukocyte Esterase (test code = 39621-6) LARGE NEGATIV E [facility] Dnmkzop6650-32-54 03:36:00* Test Item Value Reference Range Interpretation Comments Urine Nitrite (test code = 18422-1) POSITIVE NEGATIVE H [facility] Oqmeawu9140-32-92 03:36:00* Test Item Value Reference Range Interpretation Comments Urine Protein (test code = 84176-9) NEGATIVE NEGATIVE [facility] Glucose (UA)2019-05-07 03:36:00* Test Item Value Reference Range Interpretation Comments Urine Glucose (UA) (test code = 79372-3) NEGATIVE NEGATIVE [facility] Sflvjcm5412-71-50 03:36:00* Test Item Value Reference Range Interpretation Comments Urine Ketones (test code = 41020-1) NEGATIVE NEGATIVE [facility] Rkhqlrftwrvm8996-53-95 03:36:00* Test Item Value Reference Range Interpretation Comments Urine Urobilinogen (test code = 05246-1) 0.2 0.2-1 [facility] Rrmyamtdq8654-49-34 03:36:00* Test Item Value Reference Range Interpretation Comments Urine Bilirubin (test code = 1977-8) NEGATIVE NEGATIVE [facility] Qyawr9984-93-78 03:36:00* Test Item Value Reference Range Interpretation Comments Urine Blood (test code = 42019-6) TRACE NEGATIVE [facility] Zuxmb7456-83-42 03:36:00* Test Item Value Reference Range Interpretation Comments Urine Color (test code = 5778-6) YELLOW YELLOW [facility] Bzdvzrf1262-60-72 03:36:00* Test Item Value Reference Range Interpretation Comments Urine Clarity (test code = 92011-7) CLOUDY CLEAR H [facility] Specific Izykcve3230-39-94 03:36:00 * Test Item Value Reference Range Interpretation Comments Urine Specific Welling (test code = 5811-5) 1.015 1.010-1.02 5 [facility] sG8055-01-83 03:36:00* Test Item Value Reference Range Interpretation Comments Urine pH (test code = 29975-1) 7 5-7 [facility] Leukocyte Sdhommny7937-46-52 03:36:00* Test Item Value Reference Range Interpretation Comments Urine Leukocyte Esterase (test code = 69840-9) LARGE NEGATIV E [facility] Ekocvxo1394-24-23 03:36:00* Test Item Value Reference Range Interpretation Comments Urine Nitrite (test code = 10680-2) POSITIVE NEGATIVE H [facility] Esquxok1586-60-72 03:36:00* Test Item Value Reference Range Interpretation Comments Urine Protein (test code = 78280-5) NEGATIVE NEGATIVE [facility] Glucose (UA)2019-05-07 03:36:00* Test Item Value Reference Range Interpretation Comments Urine Glucose (UA) (test code = 12642-8) NEGATIVE NEGATIVE [facility] Vsyzzon8218-74-23 03:36:00* Test Item Value Reference Range Interpretation Comments Urine Ketones (test code = 48686-0) NEGATIVE NEGATIVE [facility] Vvzekqjqdmjz0833-69-76 03:36:00* Test Item Value Reference Range Interpretation Comments Urine Urobilinogen (test code = 72109-4) 0.2 0.2-1 [facility] Keyeqrblo9515-53-59 03:36:00* Test Item Value Reference Range Interpretation Comments Urine Bilirubin (test code = 1977-8) NEGATIVE NEGATIVE [facility] Vrxwp1190-27-42 03:36:00* Test Item Value Reference Range Interpretation Comments Urine Blood (test code = 90870-3) TRACE NEGATIVE [facility] [place] Fbqih5289-35-33 03:36:00* Test Item Value Reference Range Interpretation Comments Urine Color (test code = 5778-6) YELLOW YELLOW [facility] Byzukhd2587-59-37 03:36:00* Test Item Value Reference Range Interpretation Comments Urine Clarity (test code = 38224-4) CLOUDY CLEAR H [facility] Specific Spccdyi1536-83-11 03:36:00 * Test Item Value Reference Range Interpretation Comments Urine Specific Welling (test code = 5811-5) 1.015 1.010-1.02 5 [facility] [id number] 03:36:00* Test Item Value Reference Range Interpretation Comments Urine pH (test code = 18885-1) 7 5-7 [facility] Leukocyte Bctqbghg2014-28-89 03:36:00* Test Item Value Reference Range Interpretation Comments Urine Leukocyte Esterase (test code = 52778-3) LARGE NEGATIV E [facility] Bnvkzkf5610-17-58 03:36:00* Test Item Value Reference Range Interpretation Comments Urine Nitrite (test code = 02331-2) POSITIVE NEGATIVE H [facility] Cjsvnpm2111-84-54 03:36:00* Test Item Value Reference Range Interpretation Comments Urine Protein (test code = 39985-5) NEGATIVE NEGATIVE [facility] Glucose (UA)2019-05-07 03:36:00* Test Item Value Reference Range Interpretation Comments Urine Glucose (UA) (test code = 45418-9) NEGATIVE NEGATIVE [facility] Tdsfged7272-13-60 03:36:00* Test Item Value Reference Range Interpretation Comments Urine Ketones (test code = 26522-9) NEGATIVE NEGATIVE [facility] Dfriqrynwffe5522-04-94 03:36:00* Test Item Value Reference Range Interpretation Comments Urine Urobilinogen (test code = 72899-1) 0.2 0.2-1 [facility] Dvwgecjkg7508-11-41 03:36:00* Test Item Value Reference Range Interpretation Comments Urine Bilirubin (test code = 1977-8) NEGATIVE NEGATIVE [facility] Dkgfi7237-85-81 03:36:00* Test Item Value Reference Range Interpretation Comments Urine Blood (test code = 85966-0) TRACE NEGATIVE [facility] Azlyf9111-97-40 03:36:00* Test Item Value Reference Range Interpretation Comments Urine Color (test code = 5778-6) YELLOW YELLOW [facility] Mztveka0802-73-63 03:36:00* Test Item Value Reference Range Interpretation Comments Urine Clarity (test code = 76019-5) CLOUDY CLEAR H [facility] Specific Qicntet0111-04-51 03:36:00 * Test Item Value Reference Range Interpretation Comments Urine Specific Welling (test code = 5811-5) 1.015 1.010-1.02 5 [facility] oS3141-12-84 03:36:00* Test Item Value Reference Range Interpretation Comments Urine pH (test code = 15257-8) 7 5-7 [facility] Leukocyte Lrzakotm2155-98-30 03:36:00* Test Item Value Reference Range Interpretation Comments Urine Leukocyte Esterase (test code = 52349-7) LARGE NEGATIV E [facility] Icqiete3454-98-97 03:36:00* Test Item Value Reference Range Interpretation Comments Urine Nitrite (test code = 28633-0) POSITIVE NEGATIVE H [facility] Mopjlpn6256-16-06 03:36:00* Test Item Value Reference Range Interpretation Comments Urine Protein (test code = 42122-0) NEGATIVE NEGATIVE [facility] Glucose (UA)2019-05-07 03:36:00* Test Item Value Reference Range Interpretation Comments Urine Glucose (UA) (test code = 97268-4) NEGATIVE NEGATIVE [facility] Qbkulvu6524-83-91 03:36:00* Test Item Value Reference Range Interpretation Comments Urine Ketones (test code = 52990-3) NEGATIVE NEGATIVE [facility] Lavnfhyunfex6597-02-30 03:36:00* Test Item Value Reference Range Interpretation Comments Urine Urobilinogen (test code = 50905-2) 0.2 0.2-1 [facility] Ogduuayqa7103-74-60 03:36:00* Test Item Value Reference Range Interpretation Comments Urine Bilirubin (test code = 1977-8) NEGATIVE NEGATIVE [facility] Nxozf0799-87-20 03:36:00* Test Item Value Reference Range Interpretation Comments Urine Blood (test code = 49521-7) TRACE NEGATIVE [facility] (PORT[facility])2019-05-07 03:22:00 [place] [address] Patient Name: MOJGAN CUMMINGS MR #: [id number] : 1950 Age/Sex: 69/F Req #: [id number] Adm Physician: ILAN STEIN MD Ordered by: WILIAM MARTINEZ MD Report #: [id number] Location: [facility] Room/Bed: [place] [address] Procedure: [id number] D X/CHEST SINGLE (PORTABLE) Exam Date: 05/07/19 [...] COPY TO: WILIAM MARTINEZ MD Urine color xvobzdwmslkyh5393-50-54 03:04:00* Test Item Value Reference Range Interpretation Comments Urine Color (test code = 5778-6) YELLOW YELLOW [facility] dokqrzw9921-13-47 03:04:00* Test Item Value Reference Range Interpretation Comments Urine Clarity (test code = 38740-6) CLOUDY CLEAR [facility] by Test strip 2019-05-07 03:04:00* Test Item Value Reference Range Interpretation Comments Urine Specific Welling (test code = 5811-5) 1.015 1.010-1.02 5 [facility] pH measurement by automated test odviw4447-07-92 03:04:00* Test Item Value Reference Range Interpretation Comments Urine pH (test code = 67707-0) 7 5-7 [facility] leukocyte esterase detection by automated test bduyb7601-66-58 03:04:00* Test Item Value Reference Range Interpretation Comments Urine Leukocyte Esterase (test code = 91039-8) LARGE NEGATIV E [facility] nitrite detection by automated test fljtx2106-44-44 03:04:00* Test Item Value Reference Range Interpretation Comments Urine Nitrite (test code = 53181-0) POSITIVE NEGATIVE [facility] protein detection by automated test finrs4008-97-40 03:04:00* Test Item Value Reference Range Interpretation Comments Urine Protein (test code = 57739-3) NEGATIVE NEGATIVE [facility] glucose detection by automated test frntb4780-61-56 03:04:00* Test Item Value Reference Range Interpretation Comments Urine Glucose (UA) (test code = 96901-8) NEGATIVE NEGATIVE [facility] ketones detection by automated test wngim3005-74-45 03:04:00* Test Item Value Reference Range Interpretation Comments Urine Ketones (test code = 41600-3) NEGATIVE NEGATIVE [facility] urobilinogen measurement by test strip (mass/volume)2019-05-07 03:04:00* Test Item Value Reference Range Interpretation Comments Urine Urobilinogen (test code = 85804-1) 0.2 0.2-1 [facility] total bilirubin yxscansyf5551-53-81 03:04:00* Test Item Value Reference Range Interpretation Comments Urine Bilirubin (test code = 1977-8) NEGATIVE NEGATIVE [facility] erythrocytes asbvtdihe7411-52-75 03:04:00* Test Item Value Reference Range Interpretation Comments Urine Blood (test code = 43069-8) TRACE NEGATIVE [facility]en[facility] urine sediment leukocyte count by microscopy (number/high power field)2019-05-07 03:04:00* Test Item Value Reference Range Interpretation Comments Urine WBC (test code = 5821-4) 21-50 0-5 [facility]enErythrocytes detection in urine sediment by light jdggwdskom8297-12-22 03:04:00* Test Item Value Reference Range Interpretation Comments Urine RBC (test code = 87082-8) 6-10 0-5 [facility]en[facility]acteria detection in urine sediment by light jffoytmptz1911-30-74 03:04:00* Test Item Value Reference Range Interpretation Comments Urine Bacteria (test code = 75838-3) MANY NONE [facility]enEpithelial cells detection in urine sediment by light kadykcnmjq9229-54-94 03:04:00* Test Item Value Reference Range Interpretation Comments Urine Epithelial Cells (test code = 82815-4) FEW NONE [facility]enAmorphous sediment detection in urine sediment by light xrdpiekfaz0635-95-18 03:04:00* Test Item Value Reference Range Interpretation Comments Urine Amorphous Sediment (test code = 8246-1) MODERATE FEW [facility] or plasma lipase measurement (enzymatic activity/volume)2019-05-07 03:04:00* Test Item Value Reference Range Interpretation Comments Lipase (test code = 3040-3) < 4 8-78 [facility]en[facility] urine qopwaaa9544-99-19 03:04:00* Test Item Value Reference Range Interpretation Comments Urine Culture (test code = 630-4) ESCHERICHIA COLI [facility] color aezcnctcdbyab0648-16-45 03:04:00* Test Item Value Reference Range Interpretation Comments Urine Color (test code = 5778-6) YELLOW YELLOW [facility] khsnbyb0253-01-54 03:04:00* Test Item Value Reference Range Interpretation Comments Urine Clarity (test code = 55168-0) CLOUDY CLEAR [facility] gravity [facility] Urine by Test strip 2019-05-07 03:04:00* Test Item Value Reference Range Interpretation Comments Urine Specific Welling (test code = 5811-5) 1.015 1.010-1.02 5 [facility] pH measurement by automated test zqoes3264-19-02 03:04:00* Test Item Value Reference Range Interpretation Comments Urine pH (test code = 34951-0) 7 5-7 [facility] leukocyte esterase detection by automated test plqqy4266-08-19 03:04:00* Test Item Value Reference Range Interpretation Comments Urine Leukocyte Esterase (test code = 01367-1) LARGE NEGATIV E [facility] nitrite detection by automated test vessz4342-95-45 03:04:00* Test Item Value Reference Range Interpretation Comments Urine Nitrite (test code = 51081-2) POSITIVE NEGATIVE [facility] protein detection by automated test mxnwk7740-69-10 03:04:00* Test Item Value Reference Range Interpretation Comments Urine Protein (test code = 42916-1) NEGATIVE NEGATIVE [facility] glucose detection by automated test znaod5208-64-25 03:04:00* Test Item Value Reference Range Interpretation Comments Urine Glucose (UA) (test code = 50403-4) NEGATIVE NEGATIVE [facility] ketones detection by automated test zrqtz0560-98-72 03:04:00* Test Item Value Reference Range Interpretation Comments Urine Ketones (test code = 75249-2) NEGATIVE NEGATIVE [facility] urobilinogen measurement by test strip (mass/volume)2019-05-07 03:04:00* Test Item Value Reference Range Interpretation Comments Urine Urobilinogen (test code = 90826-7) 0.2 0.2-1 [facility] total bilirubin mtzxibgqq0395-62-11 03:04:00* Test Item Value Reference Range Interpretation Comments Urine Bilirubin (test code = 1977-8) NEGATIVE NEGATIVE [facility] erythrocytes jlijiqxag8786-96-31 03:04:00* Test Item Value Reference Range Interpretation Comments Urine Blood (test code = 77278-7) TRACE NEGATIVE [facility]enAutom[facility] urine sediment leukocyte count by microscopy (number/high power field)2019-05-07 03:04:00* Test Item Value Reference Range Interpretation Comments Urine WBC (test code = 5821-4) 21-50 0-5 [facility]enErythrocytes detection in urine sediment by light nracuekvgm0514-15-83 03:04:00* Test Item Value Reference Range Interpretation Comments Urine RBC (test code = 58015-9) 6-10 0-5 [facility]en[facility]acteria detection in urine sediment by light vwalhjxvds3183-84-13 03:04:00* Test Item Value Reference Range Interpretation Comments Urine Bacteria (test code = 65710-0) MANY NONE [facility]lingenEpithelial cells detection in urine sediment by light gztajlncpn4610-77-51 03:04:00* Test Item Value Reference Range Interpretation Comments Urine Epithelial Cells (test code = 04845-5) FEW NONE [facility]enAmorphous sediment detection in urine sediment by light fafbjgrlbi8646-30-98 03:04:00* Test Item Value Reference Range Interpretation Comments Urine Amorphous Sediment (test code = 8246-1) MODERATE FEW [facility] or plasma lipase measurement (enzymatic activity/volume)2019-05-07 03:04:00* Test Item Value Reference Range Interpretation Comments Lipase (test code = 3040-3) < 4 8-78 [facility]en[facility] urine govczvf5894-16-14 03:04:00* Test Item Value Reference Range Interpretation Comments Urine Culture (test code = 630-4) ESCHERICHIA COLI [facility]lingenGLUBED2019-05-07 12:50:00* Test Item Value Reference Range Interpretation Comments GLUBED (test code = GLUBED) 87 mg/dL 74-106 N Performed by certified tunnel elastic operator lockstitch at [facility] PPHPDM1135-82-55 12:50:00* Test Item Value Reference Range Interpretation Comments GLUBED (test code = GLUBED) 87 mg/dL 74-106 N Performed by certified tunnel elastic operator lockstitch at [facility] ECMXQE2413-21-60 12:29:00* Test Item Value Reference Range Interpretation Comments GLUBED (test code = GLUBED) 70 mg/dL 74-106 L Performed by certified tunnel elastic operator lockstitch at [facility] KTFMSB2801-55-96 14:40:00* Test Item Value Reference Range Interpretation Comments GLUBED (test code = GLUBED) 85 mg/dL 74-106 N Performed by certified tunnel elastic operator lockstitch at [facility] KDGQDK9901-65-26 14:39:00* Test Item Value Reference Range Interpretation Comments GLUBED (test code = GLUBED) 74 mg/dL 74-106 N Performed by certified tunnel elastic operator lockstitch at [facility] RZRQXS1918-63-81 14:39:00* Test Item Value Reference Range Interpretation Comments GLUBED (test code = GLUBED) 96 mg/dL 74-106 N Performed by certified tunnel elastic operator lockstitch at [facility] KLQBHG2065-44-24 14:39:00* Test Item Value Reference Range Interpretation Comments GLUBED (test code = GLUBED) 83 mg/dL 74-106 N Performed by certified tunnel elastic operator lockstitch at [facility] KZFEIW8866-75-90 14:39:00* Test Item Value Reference Range Interpretation Comments GLUBED (test code = GLUBED) 70 mg/dL 74-106 L Performed by certified tunnel elastic operator lockstitch [facility] CenterNotified Nurse~ BUWYLL3509-07-82 14:39:00* Test Item Value Reference Range Interpretation Comments GLUBED (test code = GLUBED) 79 mg/dL 74-106 N Performed by certified tunnel elastic operator lockstitch at [facility] IYQPRJ1303-51-56 10:37:00* Test Item Value Reference Range Interpretation Comments GLUBED (test code = GLUBED) 80 mg/dL 74-106 N Performed by certified tunnel elastic operator lockstitch at [facility] WBSGOV1452-20-53 10:37:00* Test Item Value Reference Range Interpretation Comments GLUBED (test code = GLUBED) 89 mg/dL 74-106 N Performed by certified tunnel elastic operator lockstitch at [facility] AZVUUN4352-08-13 10:37:00* Test Item Value Reference Range Interpretation Comments GLUBED (test code = GLUBED) 88 mg/dL 74-106 N Performed by certified tunnel elastic operator lockstitch at [facility] UFSQDI4161-56-24 10:36:00* Test Item Value Reference Range Interpretation Comments GLUBED (test code = GLUBED) 76 mg/dL 74-106 N Performed by certified tunnel elastic operator lockstitch at [facility] YUOAIQ1948 10:36:00* Test Item Value Reference Range Interpretation Comments GLUBED (test code = GLUBED) 71 mg/dL 74-106 L Performed by certified tunnel elastic operator lockstitch at [facility] EXOJNW9810-66-85 10:35:00* Test Item Value Reference Range Interpretation Comments GLUBED (test code = GLUBED) 82 mg/dL 74-106 N Performed by certified tunnel elastic operator lockstitch at [facility] [id number] 16:17:00* Test Item Value Reference Range Interpretation Comments GLUBED (test code = GLUBED) 77 mg/dL 74-106 N Performed by certified tunnel elastic operator lockstitch at [facility] CZUSWS7260-70-68 10:29:00* Test Item Value Reference Range Interpretation Comments GLUBED (test code = GLUBED) 78 mg/dL 74-106 N Performed by certified tunnel elastic operator lockstitch at [facility] CBC W/MANUAL PLST2527-14-09 07:41:00* Test Item Value Reference Range Interpretation [...] code = IMMAT) 0 % BASIC METABOLIC [id number] 07:01:00* Test Item Value Reference Range Interpretation [...] code = CA) 8.5 mg/dL 8.5-10.1 N OOBLSNFIC0700-15-06 07:01:00* Test Item Value Reference Range Interpretation Comments MAGNESIUM (test code = MAG) 1.5 mg/dL 1.8-2.4 L BASIC METABOLIC ICMGW6005-01-74 06:53:00* Test Item Value Reference Range Interpretation [...] CALCIUM (test code = CA) mg/dL 8.5-10.1 UEXZFSJHR8941-61-56 06:53:00* Test Item Value Reference Range Interpretation Comments MAGNESIUM (test code = MAG) mg/dL 1.8-2.4 CBC W/MANUAL [id number] 06:43:00* Test Item Value Reference Range Interpretation [...] MORPHOLOGY (test code = PLTMORPH) CBC W/MANUAL [id number] 06:43:00* Test Item Value Reference Range Interpretation [...] MORPHOLOGY (test code = PLTMORPH) CBC W/MANUAL [id number] 06:43:00* Test Item Value Reference Range Interpretation [...] MORPHOLOGY (test code = PLTMORPH) CBC W/MANUAL [id number] 06:43:00* Test Item Value Reference Range Interpretation [...] MORPHOLOGY (test code = PLTMORPH) CBC W/MANUAL [id number] 06:43:00* Test Item Value Reference Range Interpretation [...] PLTEST) PLATELET MORPHOLOGY (test code = PLTMORPH) [id number] 17:26:00* Test Item Value Reference Range Interpretation Comments GLUBED (test code = GLUBED) 87 mg/dL 74-106 N Performed by certified tunnel elastic operator lockstitch at [facility] - XR ABDOMEN AP 1 [id number] 14:29:00 FAX: Ilan Holt MD [place]: B St: DIS FAX: Elissa Childers [phone] Name: MOJGAN CUMMINGS [facility] : 1950 Age/S: 68/F [address] [facility] Unit #: [id number] Loc: [place] [address] Phys: Elissa Childers Acct: [id number] Dis Date: Status: DIS IN PHONE #: [phone] Exam Date: 12/25/2018 1345 FAX #: [phone] Reason: r/o ileus EXAMS: CPT CODE: [id number] XR ABDOMEN AP 1 V 81399 HISTORY: Pain. Single view chest: COMPARISON: December [...] deformity dislocation of the left hip. at 1422 Reported and signed by: Clem Grissom M.D. CC: Ilan Stein; Elissa Childers Technologist: RADHA LOCKETT RT(R) Trnscrd Date/Time/By: 12/25/2018 (6794) : By: [email or web address] Orig Print D/T: S: 12/25/2018 (8880) PAGE 1 Signed Report - XR ABDOMEN AP 1 [id number] 14:29:00 FAX: Ilan Holt MD [place]: St: ADM FAX: Elissa Childers [phone] Name: MOJGAN CUMMINGS [facility] : 1950 Age/S: 68/F [address] [facility] Unit #: [id number] Loc: [address] [place] [address] Phys: Elissa Childers Acct: [id number] Dis Date: Status: ADM IN PHONE #: [phone] Exam Date: 12/25/2018 1345 FAX #: [phone] Reason: r/o ileus EXAMS: CPT CODE: [id number] XR ABDOMEN AP 1 V 61335 HISTORY: Pain. Single view chest: CO MPARISON: [...] d islocation of the left hip. at 5988 Reported and signed by: Clem mccoy M.D. CC: Ilan Stein; Elissa Childers Technologist: RADHA ALEXANDRA(Ivan) Tr[facility] Date/Time/By: 12/25/2018 (0422) : By: [email or web address] Orig Print D/T: S: 12/25/2018 (6519) PAGE 1 Signed Report - XR ABDOMEN AP 1 [id number] 14:29:00 FAX: Ilan Holt MD [place]: St: DIS FAX: Elissa Childers [phone] Name: MOJGAN CUMMINGS [facility] : 1950 Age/S: 68/F [address] [facility] Unit #: [id number] Loc: [place] [address] Phys: Elissa Childers Acct: [id number] Dis Date: Status: DIS IN PHONE #: [phone] Exam Date: 12/25/2018 1345 FAX #: [phone] Reason: r/o ileus EXAMS: CPT CODE: [id number] XR ABDOMEN AP 1 V 62400 HISTORY: Pain. Single view chest: CO MPARISON: [...] d islocation of the left hip. at 1428 Reported and signed by: Clem mccoy M.D. CC: Ilan Stein; Elissa Childers Technologist: RADHA ALEXANDRA(Ivan) Trns crd Date/Time/By: 12/25/2018 (4874) : By: [email or web address] Orig Print D/T: S: 12/25/2018 (2281) PAGE 1 Signed Report - XR CHEST 1 [id number] 14:29:00 FAX: Ilan Holt MD [place]: St: DIS FAX: Elissa Childers [phone] Name: MOJGAN CUMMINGS [facility] : 1950 Age/S: 68/F [address] [facility] Unit #: [id number] Loc: [place] [address] Phys: Elissa Childers Acct: [id number] Dis Date: Status: DIS IN PHONE #: [phone] Exam Date: 12/25/2018 1345 FAX #: [phone] Reason: check resp status EXAMS: CPT CODE: [id number] XR CHEST 1 V 66942 HISTORY: Pain. Single view chest: CO MPARISON: [...] d islocation of the left hip. at 1421 Reported and signed by: Clem mccoy M.D. CC: Ilan Stein; Elissa Childers Technologist: RADHA CHAO) [facility] Date/Time/By: 12/25/2018 (8854) : By: [email or web address] Orig Print D/T: S: 12/25/2018 (5318) PAGE 1 Signed Report - XR CHEST 1 [id number] 14:29:00 FAX: Ilan Holt MD [place]: St: ADM FAX: Elissa Childers [phone] Name: ZOILAMOJGAN MOLINA [facility] : 1950 Age/S: 68/F [address] [facility] Unit #: [id number] Loc: [address] [place] [address] Phys: Elissa Childers Acct: [id number] Dis Date: Status: ADM IN PHONE #: [phone] Exam Date: 12/25/2018 1345 FAX #: [phone] Reason: check resp status EXAMS: CPT CODE: [id number] XR CHEST 1 V 97782 HISTORY: Pain. Single view chest: CO MPARISON: [...] d islocation of the left hip. at 1423 Reported and signed by: Clem mccoy M.D. CC: Ilan Stein; Elissa Childers Technologist: RADHA Suero (R) [facility] Date/Time/By: 12/25/2018 (1423) : By: [email or web address] Orig Print D/T: S: 12/25/2018 (3308) PAGE 1 Signed Report - XR CHEST 1 [id number] 14:29:00 FAX: Ilan Holt MD [place]: St: DIS FAX: Elissa Childers [phone] Name: ZOILAMOJGAN JESSE [facility] : 1950 Age/S: 68/F [address] [facility] Unit #: [id number] [facility]: [facility] [place] [address] Phys: Elissa Childers Acct: [id number] Dis Date: Status: DIS IN PHONE #: [phone] Exam Date: 12/25/2018 1345 FAX #: [phone] Reason: check resp status EXAMS: CPT CODE: [id number] XR CHEST 1 V 04887 HISTORY: Pain. Single view chest: CO MPARISON: [...] RADHA CHAO) Jose Alfredos crd Date/Time/By: 12/25/2018 (2632) : By: [email or web address] Orig Print D/T: S: 12/25/2018 (6255) PAGE 1 Signed Report CBC W/AUTO [id number] 06:33:00* Test Item Value Reference Range Interpretation [...] = MDIFF) NO, ONLY SCAN NEEDED DIFFERENTIAL [id number] 06:33:00* Test Item Value Reference Range Interpretation Comments STAIN ACCEPTABILITY (test code = STN ACCEPTABLE) STAIN ACCEPTABLE ANISOCYTOSIS (test code = ANISO) 1+ MACROCYTOSIS (test code = MACR) 1+ PLATELET ESTIMATE (test code = PLTEST) ADEQUATE PLATELET MORPHOLOGY (test code = PLTMORPH) SIZE VARIABLE BASIC METABOLIC [id number] 06:13:00* Test Item Value Reference Range Interpretation [...] code = CA) 8.3 mg/dL 8.5-10.1 L [id number] 06:02:00* Test Item Value Reference Range Interpretation Comments GLUBED (test code = GLUBED) 95 mg/dL 74-106 N Performed by certified tunnel elastic operator lockstitch at [facility] CBC W/AUTO [id number] 05:20:00* Test Item Value Reference Range Interpretation [...] = MDIFF) NO, ONLY SCAN NEEDED DIFFERENTIAL [id number] 05:20:00* Test Item Value Reference Range Interpretation Comments STAIN ACCEPTABILITY (test code = STN ACCEPTABLE) CABOT RINGS (test code = CAB) MORPHOLOGY COMMENT (test code = MOC) PLATELET ESTIMATE (test code = PLTEST) PLATELET MORPHOLOGY (test code = PLTMORPH) CBC W/AUTO [id number] 05:20:00* Test Item Value Reference Range Interpretation [...] = MDIFF) NO, ONLY SCAN NEEDED DIFFERENTIAL [id number] 05:20:00* Test Item Value Reference Range Interpretation Comments STAIN ACCEPTABILITY (test code = STN ACCEPTABLE) CABOT RINGS (test code = CAB) MORPHOLOGY COMMENT (test code = MOC) PLATELET ESTIMATE (test code = PLTEST) PLATELET MORPHOLOGY (test code = PLTMORPH) CBC W/AUTO [id number] 05:20:00* Test Item Value Reference Range Interpretation [...] = MDIFF) NO, ONLY SCAN NEEDED DIFFERENTIAL [id number] 05:20:00* Test Item Value Reference Range Interpretation Comments STAIN ACCEPTABILITY (test code = STN ACCEPTABLE) MORPHOLOGY COMMENT (test code = MOC) PLATELET ESTIMATE (test code = PLTEST) PLATELET MORPHOLOGY (test code = PLTMORPH) CBC W/AUTO [id number] 05:20:00* Test Item Value Reference Range Interpretation [...] = MDIFF) NO, ONLY SCAN NEEDED DIFFERENTIAL [id number] 05:20:00* Test Item Value Reference Range Interpretation Comments STAIN ACCEPTABILITY (test code = STN ACCEPTABLE) CABOT RINGS (test code = CAB) MORPHOLOGY COMMENT (test code = MOC) PLATELET ESTIMATE (test code = PLTEST) PLATELET MORPHOLOGY (test code = PLTMORPH) CBC W/AUTO [id number] 14:20:00* Test Item Value Reference Range Interpretation [...] = MDIFF) NO, ONLY SCAN NEEDED DIFFERENTIAL [id number] 14:20:00* Test Item Value Reference Range Interpretation Comments STAIN ACCEPTABILITY (test code = STN ACCEPTABLE) STAIN ACCEPTABLE HYPOCHROMIA (test code = HYPO) 2+ PLATELET ESTIMATE (test code = PLTEST) ADEQUATE PLATELET MORPHOLOGY (test code = PLTMORPH) SIZE VARIABLE CBC W/AUTO [id number] 08:42:00* Test Item Value Reference Range Interpretation [...] = MDIFF) NO, ONLY SCAN NEEDED DIFFERENTIAL [id number] 08:42:00* Test Item Value Reference Range Interpretation Comments STAIN ACCEPTABILITY (test code = STN ACCEPTABLE) CABOT RINGS (test code = CAB) MORPHOLOGY COMMENT (test code = MOC) PLATELET ESTIMATE (test code = PLTEST) PLATELET MORPHOLOGY (test code = PLTMORPH) CBC W/AUTO [id number] 08:42:00* Test Item Value Reference Range Interpretation [...] = MDIFF) NO, ONLY SCAN NEEDED DIFFERENTIAL [id number] 08:42:00* Test Item Value Reference Range Interpretation Comments STAIN ACCEPTABILITY (test code = STN ACCEPTABLE) CABOT RINGS (test code = CAB) MORPHOLOGY COMMENT (test code = MOC) PLATELET ESTIMATE (test code = PLTEST) PLATELET MORPHOLOGY (test code = PLTMORPH) CBC W/AUTO [id number] 08:42:00* Test Item Value Reference Range Interpretation [...] = MDIFF) NO, ONLY SCAN NEEDED DIFFERENTIAL [id number] 08:42:00* Test Item Value Reference Range Interpretation Comments STAIN ACCEPTABILITY (test code = STN ACCEPTABLE) MORPHOLOGY COMMENT (test code = MOC) PLATELET ESTIMATE (test code = PLTEST) PLATELET MORPHOLOGY (test code = PLTMORPH) CBC W/AUTO [id number] 08:42:00* Test Item Value Reference Range Interpretation [...] = MDIFF) NO, ONLY SCAN NEEDED DIFFERENTIAL [id number] 08:42:00* Test Item Value Reference Range Interpretation Comments STAIN ACCEPTABILITY (test code = STN ACCEPTABLE) CABOT RINGS (test code = CAB) MORPHOLOGY COMMENT (test code = MOC) PLATELET ESTIMATE (test code = PLTEST) PLATELET MORPHOLOGY (test code = PLTMORPH) BASIC METABOLIC [id number] 08:06:00* Test Item Value Reference Range Interpretation [...] code = CA) 8.2 mg/dL 8.5-10.1 L [id number] 08:06:00* Test Item Value Reference Range Interpretation Comments MAGNESIUM (test code = MAG) 1.8 mg/dL 1.8-2.4 N [id number] 16:50:00* Test Item Value Reference Range Interpretation Comments GLUBED (test code = GLUBED) 66 mg/dL 74-106 L Performed by certified tunnel elastic operator lockstitch at [facility] BASIC METABOLIC [id number] 13:20:00* Test Item Value Reference Range Interpretation [...] LINE DRAW MARIA M LUND WILL DRAW V.LAB.[facility] ANIOV.LAB.[facility] [id number] 13:20:00* Test Item Value Reference Range Interpretation Comments MAGNESIUM (test code = MAG) 1.8 mg/dL 1.8-2.4 N PT IS A LINE DRAW MARIA M LUND WILL DRAW V.LAB.[facility] ANIOV.LAB.[facility] 0709BASIC METABOLIC [id number] 13:13:00* Test Item Value Reference Range Interpretation [...] LINE DRAW MARIA M LUND WILL DRAW V.LAB.[facility] ANIOV.LAB.[facility] [id number] 13:13:00* Test Item Value Reference Range Interpretation Comments MAGNESIUM (test code = MAG) mg/dL 1.8-2.4 PT IS A LINE DRAW MARIA M LUND WILL DRAW V.LAB.[facility] 507304SYCKVU.LAB.[facility] [id number] 12:30:00* Test Item Value Reference Range Interpretation Comments GLUBED (test code = GLUBED) 80 mg/dL 74-106 N Performed by certified tunnel elastic operator lockstitch at [facility] [id number] 12:29:00* Test Item Value Reference Range Interpretation Comments GLUBED (test code = GLUBED) 66 mg/dL 74-106 L Performed by certified tunnel elastic operator lockstitch at [facility] [id number] 12:29:00* Test Item Value Reference Range Interpretation Comments GLUBED (test code = GLUBED) 49 mg/dL 74-106 LL Performed by certified tunnel elastic operator lockstitch at [facility] [id number] 12:29:00* Test Item Value Reference Range Interpretation Comments GLUBED (test code = GLUBED) 72 mg/dL 74-106 L Performed by certified tunnel elastic operator lockstitch at [facility] [id number] 12:29:00* Test Item Value Reference Range Interpretation Comments GLUBED (test code = GLUBED) 97 mg/dL 74-106 N Performed by certified tunnel elastic operator lockstitch at [facility] - XR CHEST 1 [id number] 08:57:00 FAX: Conner Hernandez MD [phone] [place]: B St: DIS FAX: Ilan Holt MD Name: MOJGAN CUMMINGS [facility] : 1950 Age/S: 68/F [address] Unit #: [id number] Loc: [place] [address] Phys: Conner Norris MD Acct: [id number] Dis Date: Status: DIS IN PHONE #: [phone] Exam Date: 12/22/2018 0804 FAX #: [phone] Reason: chf EXAMS: CPT CODE: [id number] XR CHEST 1 V 94680 HISTORY: CHF. COMPARISON: December 18, 2018. Right [...] 1 Signed Report - XR CHEST 1 [id number] 08:57:00 FAX: Conner Hernandez MD [phone] [place]: St: ADM FAX: Ilan Holt MD Name: MOJGAN CUMMINGS [facility] : 1950 Age/S: 68/F [address] Unit #: [id number] Loc: [address] [place] [address] Phys: Conner Norris MD Acct: [id number] Dis Date: Status: ADM IN PHONE #: [phone] Exam Date: 12/22/2018 08 FAX #: [phone] Reason: chf EXAMS: CPT CODE: [id number] XR CHEST 1 V 79069 HISTORY: CHF. COMPARISON: December 18, 2018. Right [...] Conner Norris MD; Ilan Stein Technologist: Sachi Gonzalez(Ivan); STUDENT TECHNOLOGIST Trnscrd Date/Time/By: 12/22/2018 (08) : By: [email or web address] Orig Print D/T: S: 12/22/2018 (900) PAGE 1 Signed Report - XR CHEST 1 [id number] 08:57:00 FAX: Conner Hernandez MD [phone] [place]: St: DIS FAX: Ilan Holt MD Name: MOJGAN CUMMINGS [facility] : 1950 Age/S: 68/F [address] Unit #: [id number] Loc: [place] [address] Phys: Conner Norris MD Acct: [id number] Dis Date: Status: DIS IN PHONE #: [phone] Exam Date: 12/22/2018 08 FAX #: [phone] Reason: chf EXAMS: CPT CODE: [id number] XR CHEST 1 V 52738 HISTORY: CHF. COMPARISON: December 18, 2018. Right jugular central line and tracheostomy tube are unchanged. Resolved right effusion and platelike atelectasis. No congestion or infiltrates. Cardiomegaly. 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 IMPRESSION: Lungs are clear with right basal atelectasis and effusion which appear to have resolved. at 0843 Reported and signed by: Clem Grissom M.D. CC: Conner Norris MD; Ilan Stein Technologist: Sachi Mo); STUDENT TECHNOLOGIST Trnscrd Date/Time/By: 12/22/2018 (0857) : By: [email or web address] Orig Print D/T: S: 12/22/2018 (0994) PAGE 1 Signed Report BASIC METABOLIC [id number] 06:29:00* Test Item Value Reference Range Interpretation [...] code = CA) 8.0 mg/dL 8.5-10.1 L [id number] 06:29:00* Test Item Value Reference Range Interpretation Comments PHOSPHORUS (test code = PHOS) 3.4 mg/dL 2.5-4.9 N [id number] 06:29:00* Test Item Value Reference Range Interpretation Comments MAGNESIUM (test code = MAG) 1.6 mg/dL 1.8-2.4 L BASIC METABOLIC [id number] 06:24:00* Test Item Value Reference Range Interpretation [...] CALCIUM (test code = CA) mg/dL 8.5-10.1 [id number] 06:24:00* Test Item Value Reference Range Interpretation Comments PHOSPHORUS (test code = PHOS) mg/dL 2.5-4.9 [id number] 06:24:00* Test Item Value Reference Range Interpretation Comments MAGNESIUM (test code = MAG) mg/dL 1.8-2.4 [id number] 18:42:00* Test Item Value Reference Range Interpretation Comments GLUBED (test code = GLUBED) 90 mg/dL 74-106 N Performed by certified tunnel elastic operator lockstitch at [facility] [id number] 18:42:00* Test Item Value Reference Range Interpretation Comments GLUBED (test code = GLUBED) 86 mg/dL 74-106 N Performed by certified tunnel elastic operator lockstitch at [facility] [id number] 12:42:00* Test Item Value Reference Range Interpretation Comments GLUBED (test code = GLUBED) 91 mg/dL 74-106 N Performed by certified tunnel elastic operator lockstitch at [facility] CBC W/AUTO [id number] 10:14:00* Test Item Value Reference Range Interpretation [...] (test code = MDIFF) NO BASIC METABOLIC [id number] 09:00:00* Test Item Value Reference Range Interpretation [...] code = CA) 7.8 mg/dL 8.5-10.1 L [id number] 09:00:00* Test Item Value Reference Range Interpretation Comments PHOSPHORUS (test code = PHOS) 3.5 mg/dL 2.5-4.9 N [id number] 09:00:00* Test Item Value Reference Range Interpretation Comments MAGNESIUM (test code = MAG) 1.5 mg/dL 1.8-2.4 L BASIC METABOLIC [id number] 08:52:00* Test Item Value Reference Range Interpretation [...] CALCIUM (test code = CA) mg/dL 8.5-10.1 [id number] 08:52:00* Test Item Value Reference Range Interpretation Comments PHOSPHORUS (test code = PHOS) mg/dL 2.5-4.9 [id number] 08:52:00* Test Item Value Reference Range Interpretation Comments MAGNESIUM (test code = MAG) mg/dL 1.8-2.4 [id number] 16:37:00* Test Item Value Reference Range Interpretation Comments GLUBED (test code = GLUBED) 86 mg/dL 74-106 N Performed by certified tunnel elastic operator lockstitch at [facility] [id number] 11:39:00* Test Item Value Reference Range Interpretation Comments GLUBED (test code = GLUBED) 79 mg/dL 74-106 N Performed by certified tunnel elastic operator lockstitch at [facility] BASIC METABOLIC [id number] 08:50:00* Test Item Value Reference Range Interpretation [...] code = CA) 7.8 mg/dL 8.5-10.1 L [id number] 08:50:00* Test Item Value Reference Range Interpretation Comments PHOSPHORUS (test code = PHOS) 4.1 mg/dL 2.5-4.9 N [id number] 08:50:00* Test Item Value Reference Range Interpretation Comments MAGNESIUM (test code = MAG) 1.6 mg/dL 1.8-2.4 L BASIC METABOLIC [id number] 08:47:00* Test Item Value Reference Range Interpretation [...] CALCIUM (test code = CA) mg/dL 8.5-10.1 [id number] 08:47:00* Test Item Value Reference Range Interpretation Comments PHOSPHORUS (test code = PHOS) mg/dL 2.5-4.9 [id number] 08:47:00* Test Item Value Reference Range Interpretation Comments MAGNESIUM (test code = MAG) mg/dL 1.8-2.4 [id number] 05:21:00* Test Item Value Reference Range Interpretation Comments GLUBED (test code = GLUBED) 80 mg/dL 74-106 N Performed by certified tunnel elastic operator lockstitch at [facility] [id number] 20:56:00* Test Item Value Reference Range Interpretation Comments GLUBED (test code = GLUBED) 83 mg/dL 74-106 N Performed by certified tunnel elastic operator lockstitch at [facility] [id number] 16:06:00* Test Item Value Reference Range Interpretation Comments GLUBED (test code = GLUBED) 95 mg/dL 74-106 N Performed by certified tunnel elastic operator lockstitch at [facility] [id number] 13:31:00* Test Item Value Reference Range Interpretation Comments GLUBED (test code = GLUBED) 73 mg/dL 74-106 L Performed by certified tunnel elastic operator lockstitch at [facility] BASIC METABOLIC [id number] 08:47:00* Test Item Value Reference Range Interpretation [...] CA) 7.7 mg/dL 8.5-10.1 L BASIC METABOLIC [id number] 08:43:00* Test Item Value Reference Range Interpretation [...] mg/dL 8.5-10.1 L - XR CHEST 1 [id number] 07:29:00 FAX: Mark Anthony Parker MD [phone] [place]: B St: DIS FAX: Ilan Holt MD Name: MOJGAN CUMMINGS [facility] : 1950 Age/S: 68/F [address] Unit #: [id number] Loc: [place] [address] Phys: Mark Anthony Kerns MD Acct: [id number] Dis Date: Status: DIS IN PHONE #: [phone] Exam Date: 12/18/2018 0355 FAX #: [phone] Reason: Resp Failure EXAMS: CPT CODE: [id number] XR CHEST 1 V 04579 EXAM: Chest x-ray, one view; INFORMATION: Persistent [...] S igned Report - XR CHEST 1 [id number] 07:29:00 FAX: Mark Anthony Parker MD [phone] [place]: B St: [facility] FAX: Ilan Holt MD Name: MOJGAN CUMMINGS [facility] : 1950 Age/S: 68/F [address] Unit #: [id number] Loc: [place] [address] Phys: Mark Anthony Kerns MD Acct: [id number] Dis Date: Status: ADM IN PHONE #: [phone] Exam Date: 12/18/2018 0355 FAX #: [phone] Reason: Resp Failure EXAMS: CPT CODE: [id number] XR CHEST 1 V 34284 EXAM: Chest x-ray, one view; INFORMATION: Pe rsistent platelike atelectasis in the lower portions of the right lung. R emainder the lungs is well aerated. Overall, no major change compared with the recent study from December 15, 2018. Heart is normal in size. 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 at 9775 Reported and signed by: Calderon Johnson CC: Mark Anthony Kerns MD; Ilan Stein Technologist: Misty ALEXANDRA(R) Trnscrd Date/Time/By: 12/18/2018 (728) : By: [email or web address] Orig Print D /T: S: 12/18/2018 (0732) PAGE 1 S igned Report - XR CHEST 1 [id number] 07:29:00 FAX: Mark Anthony Parker MD [phone] [place]: B St: DIS FAX: Ilan Holt MD Name: MOJGAN CUMMINGS [facility] : 1950 Age/S: 68/F [address] Unit #: [id number] Loc: [place] [address] Phys: Mark Anthony Kerns MD Acct: [id number] Dis Date: Status: DIS IN PHONE #: [phone] Exam Date: 12/18/2018354 FAX #: [phone] Reason: Resp Failure EXAMS: CPT CODE: [id number] XR CHEST 1 V 09945 EXAM: Chest x-ray, one view; INFORMATION: Pe rsistent platelike atelectasis in the lower portions of the right lung. R emainder the lungs is well aerated. Overall, no major change compared with the recent study from December 15, 2018. Heart is normal in size. 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 at 0739 Reported and signed by: Calderon Johnson CC: Mark Anthony Kerns MD; Ilan Stein Technologist: Misty Pena RT(R) Trnscrd Date/Time/By: 12/18/2018 (07) : By: [email or web address] Orig Print D /T: S: 12/18/2018 (0701) PAGE 1 S igned Report COMPREHENSIVE METABOLIC [...] due to change in reagent. COMPREHENSIVE METABOLIC [id number] 06:58:00* Test Item Value Reference Range Interpretation [...] code = ALKP) IUnit/L 45-117 CBC W/AUTO [id number] 06:19:00* Test Item Value Reference Range Interpretation [...] into account the patients history. BASIC METABOLIC [id number] 05:33:00* Test Item Value Reference Range Interpretation [...] code = CA) 7.3 mg/dL 8.5-10.1 L [id number] 05:33:00* Test Item Value Reference Range Interpretation Comments MAGNESIUM (test code = MAG) 1.8 mg/dL 1.8-2.4 N BASIC METABOLIC [id number] 07:51:00* Test Item Value Reference Range Interpretation [...] code = CA) 7.4 mg/dL 8.5-10.1 L [id number] 07:51:00* Test Item Value Reference Range Interpretation Comments PHOSPHORUS (test code = PHOS) 3.6 mg/dL 2.5-4.9 N [id number] 07:51:00* Test Item Value Reference Range Interpretation Comments MAGNESIUM (test code = MAG) 1.7 mg/dL 1.8-2.4 L CALCIUM [id number] 07:51:00* Test Item Value Reference Range Interpretation Comments CALCIUM IONIZED (test code = ERICH) 1.16 mmol/L 1.12-1.32 N BASIC METABOLIC [id number] 07:38:00* Test Item Value Reference Range Interpretation [...] code = CA) 7.4 mg/dL 8.5-10.1 L [id number] 07:38:00* Test Item Value Reference Range Interpretation Comments PHOSPHORUS (test code = PHOS) 3.6 mg/dL 2.5-4.9 N [id number] 07:38:00* Test Item Value Reference Range Interpretation Comments MAGNESIUM (test code = MAG) 1.7 mg/dL 1.8-2.4 L CALCIUM [id number] 07:38:00* Test Item Value Reference Range Interpretation Comments CALCIUM IONIZED (test code = ERICH) mmol/L 1.12-1.32 PROTHROMBIN [id number] 02:04:00* Test Item Value Reference Range Interpretation [...] (2.5-3.5) IS PATIENT ON ANTICOAGULANTS? NCBC W/AUTO [id number] 02:00:00* Test Item Value Reference Range Interpretation [...] NRBC#) 0.02 K/mm3 0.0-0.1 N CBC W/O [id number] 07:48:00* Test Item Value Reference Range Interpretation Comments WHITE BLOOD CELL (test code = WBC) 15.7 K/mm3 4.5-12.5 H RED BLOOD CELL (test code = RBC) 2.15 mill/mm3 3.7-5.2 L HEMOGLOBIN (test code = HGB) 6.3 gram/dL 11.5-15.5 L HEMATOCRIT (test code = HCT) 19.1 % 36.0-46.0 LL Results called to [id number] by ANJALI 12/15/18 0747Critical results verified and [...] fL 6.7-11.0 H - XR CHEST 1 [id number] 07:47:00 FAX: Ilan Holt MD [place]: St: DIS FAX: Ashley Juarez NP [phone] Name: MOJGAN CUMMINGS [facility] : 1950 Age/S: 68/F [address] Unit #: [id number] Loc: [place] [address] Phys: Ashley Hendrix NP Acct: [id number] Dis Date: Status: DIS IN PHONE #: [phone] Exam Date: 12/15/2018 0505 FAX #: [phone] Reason: respiratory failure EXAMS: CPT CODE: [id number] XR CHEST 1 V 05657 EXAM: Chest x-ray, one view; INFORMATION: Respiratory failure, GI bleed; IMPRESSION: No platelike atelectasis involving the basilar portion of the right upper lobe. 2. No further changes; no pulmonary edema; normal sized heart. at 0747 Reported and signed by: Rex Gates M.D. CC: Ilan Stein; Ashley Hendrix NP Technologist: Abigail Darling [facility] Date/Time/By: 12/15/2018 (0747) : By: Omar Orig Print D/T: S: 12/15/2018 (075) PAGE 1 Signed Report - XR CHEST 1 [id number] 07:47:00 FAX: Ilan Holt MD [place]: B St: ADM FAX: Ashley Juarez NP [phone] Name: MOJGAN CUMMINGS [facility] : 1950 Age/S: 68/F [address] Unit #: [id number] [address] [address] Phys: Ashley Hendrix NP Acct: [id number] Dis Date: Status: ADM IN PHONE #: [phone] Exam Date: 12/15/2018 0505 FAX #: [phone] Reason: respiratory failure EXAMS: CPT CODE: [id number] XR CHEST 1 V 78623 EXAM: Chest x-ray, one view; INFORMATION: Respiratory failure, GI bleed; IMPRESSION: No platelike atelectasis involving the basilar portion of the right upper lobe. 2. No further changes; no pulmonary edema; normal sized heart. Electronically Signed by Crispin Gates on at 0747 Reported and signed by: Jomar Gates M.D. 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 2. No further changes; no pulmonary edema; normal sized heart. at 9968 Reported and signed by: Rex Gates M.D. CC: Ilan Stein; Ashley Hendrix NP Technologist: Abigail Darling Trnscrd Date/Time/By: 12/15/2018 (0747) : By: Omar Orig Print D/T: S: 12/15/2018 (0750) PAGE 1 Signed Report BASIC METABOLIC [id number] 07:12:00* Test Item Value Reference Range Interpretation [...] code = CA) 8.0 mg/dL 8.5-10.1 L [id number] 07:12:00* Test Item Value Reference Range Interpretation Comments PHOSPHORUS (test code = PHOS) 4.3 mg/dL 2.5-4.9 N [id number] 07:12:00* Test Item Value Reference Range Interpretation Comments MAGNESIUM (test code = MAG) 1.9 mg/dL 1.8-2.4 N CALCIUM [id number] 07:12:00* Test Item Value Reference Range Interpretation Comments CALCIUM IONIZED (test code = ERICH) 1.16 mmol/L 1.12-1.32 N BASIC METABOLIC [id number] 07:09:00* Test Item Value Reference Range Interpretation [...] code = CA) 8.0 mg/dL 8.5-10.1 L [id number] 07:09:00* Test Item Value Reference Range Interpretation Comments PHOSPHORUS (test code = PHOS) 4.3 mg/dL 2.5-4.9 N [id number] 07:09:00* Test Item Value Reference Range Interpretation Comments MAGNESIUM (test code = MAG) 1.9 mg/dL 1.8-2.4 N CALCIUM [id number] 07:09:00* Test Item Value Reference Range Interpretation Comments CALCIUM IONIZED (test code = ERICH) mmol/L 1.12-1.32 BASIC METABOLIC [id number] 07:03:00* Test Item Value Reference Range Interpretation [...] CALCIUM (test code = CA) mg/dL 8.5-10.1 [id number] 07:03:00* Test Item Value Reference Range Interpretation Comments PHOSPHORUS (test code = PHOS) mg/dL 2.5-4.9 [id number] 07:03:00* Test Item Value Reference Range Interpretation Comments MAGNESIUM (test code = MAG) mg/dL 1.8-2.4 CALCIUM [id number] 07:03:00* Test Item Value Reference Range Interpretation Comments CALCIUM IONIZED (test code = ERICH) mmol/L 1.12-1.32 LACTIC [id number] 06:43:00* Test Item Value Reference Range Interpretation Comments LACTIC ACID (test code = LACT) 1.2 mmol/L 0.4-1.9 N VENOUS BLOOD [id number] 05:32:00* Test Item Value Reference Range Interpretation [...] = METHGB) 1.1 % 0.0-1.50 N LACTIC [id number] 18:52:00* Test Item Value Reference Range Interpretation Comments LACTIC ACID (test code = LACT) 1.3 mmol/L 0.4-1.9 N HGB [id number] 18:48:00* Test Item Value Reference Range Interpretation Comments HEMOGLOBIN (test code = HGB) 5.8 gram/dL 11.5-15.5 L RESULTS CALLED TO [id number] BY V.LAB.KP1 12/14/181847 RESULT VERIFIED BY REPEAT ANALYSIS HEMATOCRIT (test code = HCT) 17.8 % 36.0-46.0 LL Results called to [id number] by V.LAB.KP1 12/14/188Critical results verified and read back by Nurse? Y PROTHROMBIN [id number] 18:48:00* Test Item Value Reference Range Interpretation [...] COMMENTS TO PHLEB OTOMIST: BLOOD IN LABLACTIC [id number] 15:41:00* Test Item Value Reference Range Interpretation Comments LACTIC ACID (test code = LACT) 3.5 mmol/L 0.4-1.9 HH Results called to [id number] V.LAB.KNG1 12/14/18 1541Critical results verified and read back by Nurse? Y - CT ABD PELVIS W/O [id number] 13:43:00 Name: MOJGAN CUMMINGS [facility] : 1950 Age/S: 68 / F [address] Unit #: [id number] Loc: [place] [address] Phys: Mauro Augustin MD Acct: [id number] Dis Date: Status: DIS IN PHONE #: [phone] Exam Date: 12/14/2018 1323 FAX #: [phone] Reason: retroperitoneal hematoma r/o EXAMS: CPT CODE: [id number] CT ABD PELVIS W/O CONT 60462 REASON FOR EXAM: retroperitoneal hematoma r/o EXAM [...] Signed Rep ort (CONTINUED) Name: MOJGAN CUMMINGS [facility] : 1950 Age/S: 68 / F [address] Unit #: [id number] Loc: [place] [address] Phys: Mauro Augustin MD Acct: [id number] Dis Date: Status: DIS IN PHONE #: [phone] Exam Date: 12/14/2018 1323 FAX #: [phone] Reason: retroperitoneal hematoma r/o EXAMS: CPT CODE: [id number] CT ABD PELVIS W/O CONT 65518 <Continued> IMPRESSION: Large hematoma extending from the right side of the abdomen into the pelvis, likely intraperitoneal. Bilateral pleural effusions (right larger than left). Hepatic steatosis. Sigmoid diverticulosis. Bowel containing left-sided inguinal hernia. Gastrostomy tube is in place. at 1343 Reported and signed by: Vannesa Grant M.D. CC: Mauro Augustin MD; Ilan Stein Technologist:Dmitri Cortes RT(R),(MR),(CT); CTDI: DLP: Trnscb Date/Time: 12/14/2018 (0243) t.SDR.PB10 Orig Print D/T: S: 12/14/2018 (1784) PAGE 2 Signed Report - CT ABD PELVIS W/O CONT 2018-12-14 13:43:00 Name: MOJGAN CUMMINGS [facility] : 1950 Age/S: 68 / F [address] [facility] Unit #: [id number] Loc: [place] [address] Phys: Mauro Augustin MD Acct: [id number] Dis Date: Status: ADM IN PHONE #: [phone] Exam Date: 12/14/2018 1323 FAX #: [phone] Reason: retroperitoneal hematoma r/o EXAMS: CPT CODE: [id number] CT ABD PELVIS W/O CONT 87769 REASON FOR EXAM: retroperitoneal hematoma r/o EXAM [...] Signed Rep ort (CONTINUED) Name: MOJGAN CUMMINGS [facility] : 1950 Age/S: 68 / F [address] [facility] Unit #: [id number] Loc: [place] [address] Phys: Mauro Augustin MD Acct: [id number] Dis Date: Status: ADM IN PHONE #: [phone] Exam Date: 12/14/2018 1323 FAX #: [phone] Reason: retroperitoneal hematoma r/o EXAMS: CPT CODE: [id number] CT ABD PELVIS W/O CONT 98412 <Continued> IMPRESSION: Large hematoma extending from the right side of the abdomen into the pelvis, likely intraperitoneal. Bilateral pleural effusions (right larger than left). Hepatic steatosis. Sigmoid diverticulosis. Bowel containing left-sided inguinal hernia. Gastrostomy tube is in place. at 1343 Reported and signed by: Vannesa Grant M.D. CC: Mauro Augustin MD; Ilan Stein Technologist:Dmitri Cortes RT(R),(MR),(CT); CTDI: DLP: Trnscb Date/Time: 12/14/2018 (5493) t.JOSELYNR.PB10 Orig Print D/T: S: 12/14/2018 (7796) CTDI: DLP: PAGE 2 Signed Report - CT ABD PELVIS W/O [id number] 13:43:00 Name: MOJGAN CUMMINGS [facility] : 1950 Age/S: 68 / F [address] [facility] Unit #: [id number] Loc: [place] [address] Phys: Mauro Augustin MD Acct: [id number] Dis Date: Status: DIS IN PHONE #: [phone] Exam Date: 12/14/2018 1323 FAX #: [phone] Reason: retroperitoneal hematoma r/o EXAMS: CPT CODE: [id number] CT ABD PELVIS W/O CONT 53245 REASON FOR EXAM: retroperitoneal hematoma r/o EXAM ORDER DATE: 12/14/2018 7:51 AM Ordering M.Uriah.: Mauro Augustin MD PROCEDURE: - CT ABD [...] Signed Rep ort (CONTINUED) Name: MOJGAN CUMMINGS [facility] : 1950 Age/S: 68 / F [address] Unit #: [id number] Loc: [place] [address] Phys: Mauro Augustin MD Acct: [id number] Dis Date: Status: DIS IN PHONE #: [phone] Exam Date: 12/14/2018 1323 FAX #: [phone] Reason: retroperitoneal hematoma r/o EXAMS: CPT CODE: [id number] CT ABD PELVIS W/O CONT 66297 <Continued> IMPRESSION: Large hematoma extending from the [...] (1343) t.SDR.PB10 Orig Print D/T: S: 12/14/2018 (9986) PAGE 2 Signed Report LACTIC [id number] 12:57:00* Test Item Value Reference Range Interpretation Comments LACTIC ACID (test code = LACT) 3.7 mmol/L 0.4-1.9 HH Results called to [id number] by CHRISTIE 12/14/18 1257Critical results verified and read back by Nurse? Y HEPATIC FUNCTION [id number] 10:46:00* Test Item Value Reference Range Interpretation [...] use blood in lab- XR CHEST 1 [id number] 10:28:00 FAX: Ilan Holt MD [place]: B St: DIS FAX: Ashely Juarez NP [phone] Name: ZOILAMOJGAN JESSE [facility] : 1950 Age/S: 68/F [address] [facility] Unit #: [id number] Loc: [place] [address] Phys: Ashley Hendrix NP Acct: [id number] Dis Date: Status: DIS IN PHONE #: [phone] Exam Date: 12/14/2018 1001 FAX #: [phone] Reason: CENTRAL LINE PLACEMENT EXAMS: CPT CODE: [id number] XR CHEST 1 V 25613 HISTORY: Central line placement. COMPARISON: Same day. [...] Ashley Hendrix NP Technologist: OCTAVIO VASQUEZ JR Trnmird Date/Time/By: 12/14/2018 (1028) : By: [email or web address] Orig Print D/T: S: 12/14/2018 (8252) PAGE 1 Signed Report - XR CHEST 1 [id number] 10:28:00 FAX: Ilan Holt MD [place]: B St: ADM FAX: Ashley Juarez NP [phone] Name: MOJGAN CUMMINGS [facility] : 1950 Age/S: 68/F [address] [facility] Unit #: [id number] Loc: [address] [address] Phys: Ashley Hendrix NP Acct: [id number] Dis Date: Status: ADM IN PHONE #: [phone] Exam Date: 12/14/2018 1001 FAX #: [phone] Reason: CENTRAL LINE PLACEMENT EXAMS: CPT CODE: [id number] XR CHEST 1 V 99234 HISTORY: Central line placement. COMPARISON: Same day. [...] By: [email or web address] Orig Print D/T: S: 12/14/2018 (1038) PAGE 1 Signed Report - XR CHEST 1 [id number] 10:28:00 FAX: Ilan Holt MD [place]: St: DIS FAX: Ashley Juarez NP [phone] Name: ZOILAMOJGANRAFFI MOLINA [facility] : 1950 Age/S: 68/F [address] [facility] Unit #: [id number] Loc: [place] [address] Phys: Ashley Hendrix NP Acct: [id number] Dis Date: Status: DIS IN PHONE #: [phone] Exam Date: 12/14/2018 1001 FAX #: [phone] Reason: CENTRAL LINE PLACEMENT EXAMS: CPT CODE: [id number] XR CHEST 1 V 84528 HISTORY: Central line placement. COMPARISON: Same day. [...] Stein Heather NP Technologist: OCTAVIO VASQUEZ JR Trnbharti Date/Time/By: 12/14/2018 (1028) : By: [email or web address] Orig Print D/T: S: 12/14/2018 (5812) PAGE 1 Signed Report LACTIC [id number] 09:29:00* Test Item Value Reference Range Interpretation Comments LACTIC ACID (test code = LACT) 6.5 mmol/L 0.4-1.9 HH Results called to [id number] by CHRISTIE 12/14/18 0929Critical results verified and read back by Nurse? Y CBC W/MANUAL [id number] 08:14:00* Test Item Value Reference Range Interpretation [...] code = IMMAT) 0 % BASIC METABOLIC [id number] 07:19:00* Test Item Value Reference Range Interpretation [...] = CA) 7.7 mg/dL 8.5-10.1 L LACTIC [id number] 07:12:00* Test Item Value Reference Range Interpretation Comments LACTIC ACID (test code = LACT) 8.1 mmol/L 0.4-1.9 Results called to [id number] by CHRISTIE 12/14/18 0712Critical results verified and read back by Nurse? Y BASIC METABOLIC [id number] 07:09:00* Test Item Value Reference Range Interpretation [...] code = CA) mg/dL 8.5-10.1 CBC W/MANUAL [id number] 06:58:00* Test Item Value Reference Range Interpretation [...] MORPHOLOGY (test code = PLTMORPH) BASIC METABOLIC [id number] 04:15:00* Test Item Value Reference Range Interpretation [...] code = CA) 7.7 mg/dL 8.5-10.1 L [id number] 04:15:00* Test Item Value Reference Range Interpretation Comments PHOSPHORUS (test code = PHOS) 5.4 mg/dL 2.5-4.9 H [id number] 04:15:00* Test Item Value Reference Range Interpretation Comments MAGNESIUM (test code = MAG) 2.1 mg/dL 1.8-2.4 N LACTIC [id number] 04:13:00* Test Item Value Reference Range Interpretation Comments LACTIC ACID (test code = LACT) 12.3 mmol/L 0.4-1.9 HH Results called to [id number] by [email or web address] 12/14/18 0413Critical results verified and read back by Nurse? Y BASIC METABOLIC [id number] 04:09:00* Test Item Value Reference Range Interpretation [...] CALCIUM (test code = CA) mg/dL 8.5-10.1 [id number] 04:09:00* Test Item Value Reference Range Interpretation Comments PHOSPHORUS (test code = PHOS) mg/dL 2.5-4.9 [id number] 04:09:00* Test Item Value Reference Range Interpretation Comments MAGNESIUM (test code = MAG) mg/dL 1.8-2.4 PROTHROMBIN [id number] 04:07:00* Test Item Value Reference Range Interpretation [...] (2.5-3.5) IS PATIENT ON ANTICOAGULANTS? NTHROMBOPLASTIN TIME [id number] 04:07:00* Test Item Value Reference Range Interpretation Comments THROMBOPLASTIN TIME PARTIAL (test code = PTT) 24.3 seconds 25.0-36. 5 L IS PATIENT ON ANTICOAGULANTS? N- XR CHEST 1 [id number] 01:25:00 FAX: Justin Doran [place]: St: DIS FAX: Ilan Holt MD Name: ZOILAMOJGAN JESSE [facility] : 1950 Age/S: 68/F [address] [facility] Unit #: [id number] Loc: [place] [address] Phys: Justin Doran Acct: [id number] Dis Date: Status: DIS IN PHONE #: [phone] Exam Date: 12/14/2018 0123 FAX #: [phone] Reason: shortness of breath, desaturation EXAMS: CPT CODE: [id number] XR CHEST 1 V 57856 LOCATION: Q15 HISTORY: 68-year-old female who pres [...] By: [email or web address] Orig Print D/T: S: 12/14/2018 (0125) PAGE 1 Signed Report - XR CHEST 1 [id number] 01:25:00 FAX: Justin Doran [place]: B St: ADM FAX: Y Ilan Stein MD Name: MOJGAN CUMMINGS [facility] : 1950 Age/S: 68/F [address] [facility] Unit #: [id number] Loc: [address] [place] [address] Phys: Justin Doran Acct: [id number] Dis Date: Status: ADM IN PHONE #: [phone] Exam Date: 12/14/2018 012 FAX #: [phone] Reason: shortness of breath, desaturation EXAMS: CPT CODE: [id number] XR CHEST 1 V 07877 LOCATION: Q15 HISTORY: 68-year-old female who pres [...] By: [email or web address] Orig Print D/T: S: 12/14/2018 (2671) PAGE 1 Signed Report - XR CHEST 1 [id number] 01:25:00 FAX: Justin Doran [place]: B St: DIS FAX: Y Ilan Stein MD Name: MOJGAN CUMMINGS [facility] : 1950 Age/S: 68/F [address] [facility] Unit #: [id number] Loc: [place] [address] Phys: Justin Doran Acct: [id number] Dis Date: Status: DIS IN PHONE #: [phone] Exam Date: 12/14/2018 0123 FAX #: [phone] Reason: shortness of breath, desaturation EXAMS: CPT CODE: [id number] XR CHEST 1 V 28575 LOCATION: Q15 HISTORY: 68-year-old female who pres [...] By: [email or web address] Orig Print D/T: S: 12/14/2018 (2956) PAGE 1 Signed Report BASIC METABOLIC [id number] 00:25:00* Test Item Value Reference Range Interpretation [...] = PROCAL) 3.87 ng/ml Results called to [id number] by V.LAB.AG1 12/14/18 0023Critical results verified and [...] taking into account the patients history. LACTIC [id number] 00:23:00* Test Item Value Reference Range Interpretation Comments LACTIC ACID (test code = LACT) 11.3 mmol/L 0.4-1.9 HH Results called to [id number] by V.LAB.AG1 12/14/18 0023Critical results verified and read back by Nurse? Y - US RETRO [id number] 00:02:00 Name: MOJGAN CUMMINGS [facility] : 1950 Age/S: 68 / F [address] [facility] Unit #: [id number] Loc: [place] [address] Phys: Justin Doran Acct: [id number] Dis Date: Status: DIS IN PHONE #: [phone] Exam Date: 12/13/2018 2338 FAX #: [phone] Reason: R groing hematoma with possible retroperitoneal EXAMS: CPT CODE: [id number] US RETRO LTD 65779 HISTORY: Groin hematoma Location: C3 FINDINGS: The [...] Cherelle Muniz RDMS Trnscb Date/Time: 12/14/2018 (0002) [email or web address] Orig Print D/T: S: 12/14/2018 (0005) Probe: PAGE 1 Signed Report - US RETRO [id number] 00:02:00 Name: MOJGAN CUMMINGS [facility] : 1950 Age/S: 68 / F [address] Unit #: [id number] Loc: [place] [address] Phys: Bennie Doran Acct: [id number] Di s Date: Status: ADM IN PHONE #: [phone] Exam Date: 12/13/2018 2335 FAX #: Reason: R groing hematoma with possible retroperitoneal EXAMS: CPT CODE: [id number] US RETRO LTD 12465 HISTORY: Groin he matoma Location: C3 FINDINGS: [...] Cherelle Muniz RDMS Trnscb Date/Time: 12/14/2018 (0002) [email or web address] Orig Print D/T: S: 12/14/2018 (0005) Probe: PAGE 1 Signed Report - US RETRO [id number] 00:02:00 Name: MOJGAN CUMMINGS [facility] : 1950 Age/S: 68 / F [address] Unit #: [id number] Loc: [place] [address] Phys: Bennie Doran Acct: [id number] Di s Date: Status: DIS IN PHONE #: [phone] Exam Date: 12/13/2018 2338 FAX #: [phone] Reason: R groing hematoma with possible retroperitoneal EXAMS: CPT CODE: [id number] RETRO LTD 51056 HISTORY: Groin he matoma Location: C3 FINDINGS: [...] Doran; Ilan Stein Technologist: Cherelle Muniz RDMS Trnmib Date/Time: 12/14/2018 (0002) t.[email or web address] Orig Print D/T: S: 12/14/2018 (0005) Probe: PAGE 1 Signed Report - [facility] NON VASC [id number] 23:57:00 Name: MOJGAN CUMMINGS [facility] : 1950 Age/S: 68 / F [address] [facility] Unit #: [id number] Loc: [place] [address] Phys: Eliecer Bateman MD Acct: [id number] Dis Date: Status: DIS IN PHONE #: [phone] Exam Date: 12/13/2018 2325 FAX #: [phone] Reason: RIGHT GROIN HEMATOMA EXAMS: CPT CODE: [id number] EXTREM NON VASC LTD 19093 HISTORY: Swelling Location: C3 FINDINGS: Sonographic images of the right inguinal region were obtained. There is a large fluid collection noted in the right upper thigh. The full extent of this collection cannot be measured given its size outside the gwtrz-ce-raki but does measure at least 5.5 cm [...] Technologist: Cherelle Muniz RDMS Trnscb Date/Time: 12/13/2018 (1118) [email or web address] Orig Print D/T: S: 12/14/2018 (0000) Probe: PAGE 1 Signed Report - EXTREM NON VASC [id number] 23:57:00 Name: MOJGAN CUMMINGS [facility] : 1950 Age/S: 68 / F [address] [facility] Unit #: [id number] Loc: [place] [address] Phys: Sa kristi Bateman MD Acct: [id number] Di s Date: Status: ADM IN PHONE #: Exam Date: 12/13/20182324 FAX #: [phone] Reason: RIGHT GROIN HEMATOMA EXAMS: CPT CODE: [id number] EXTREM NON VASC LTD 56009 HISTORY: Swelling L ocation: C3 FINDINGS: Sonographic images of the right ingui nal region were obtained. There is a large fluid collection noted in the right upper thigh. The full extent of this collection cannot be measured given its size outside the qbzcy-dl-iaas but does measure at least 5.5 cm in depth and over 10 cm in length. IMPRESSION: 1. Large fluid collection in the right upper thigh. Given the cl inical history findings are most compatible with sequelae of large hemat chris. If clinically indicated CT could be performed for full extent of c ollection. a t 2646 Reported and signed by: Misty Vizcarra MD CC: Eliecer Bateman MD; Ialn Stein Techn ologist: Cherelle Muniz RDMS Trnscb Date/Time : 12/13/2018 (4278) [email or web address] Orig Print D/T: S: 12/15/19 19 (0000) Probe: PAGE 1 Signed Report - EXTREM NON VASC [id number] 23:57:00 Name: MOJGAN CUMMINGS [facility] : 1950 Age/S: 68 / F [address] Unit #: [id number] Loc: [place] [address] Phys: Sa kristi Bateman MD Acct: [id number] Di s Date: Status: DIS IN PHONE #: Exam Date: 12/13/2018 2325 FAX #: [phone] Reason: RIGHT GROIN HEMATOMA EXAMS: CPT CODE: [id number] EXTREM NON VASC LTD 99107 HISTORY: Swelling L ocation: C3 FINDINGS: Sonographic images of the right ingui nal region were obtained. There is a large fluid collection noted in the right upper thigh. The full extent of this collection cannot be measured given its size outside the vwglg-st-bgmp but does measure at least 5.5 cm in depth and over 10 cm in length. IMPRESSION: 1. Large fluid collection in the right upper thigh. Given the cl inical history findings are most compatible with sequelae of large hemat chris. If clinically indicated CT could be performed for full extent of c ollection. a t 798 Reported and signed by: Misty Vizcarra MD CC: Eliecer Bateman MD; Ilan Stein Techn ologist: Cherelle Muniz RDMS Trnscb Date/Time : 12/13/2018 (2356) [email or web address] Orig Print D/T: S: 12/15/19 19 (0000) Probe: PAGE 1 Signed Report [id number] 23:01:00* Test Item Value Reference Range Interpretation Comments GLUBED (test code = GLUBED) 113 mg/dL 74-106 H Performed by certified tunnel elastic operator lockstitch at [facility] CBC W/MANUAL [id number] 22:51:00* Test Item Value Reference Range Interpretation [...] (test code = PLTMORPH) NORMAL CBC W/MANUAL [id number] 22:13:00* Test Item Value Reference Range Interpretation [...] MORPHOLOGY (test code = PLTMORPH) CBC W/MANUAL [id number] 22:13:00* Test Item Value Reference Range Interpretation [...] MORPHOLOGY (test code = PLTMORPH) CBC W/MANUAL [id number] 22:13:00* Test Item Value Reference Range Interpretation [...] MORPHOLOGY (test code = PLTMORPH) CBC W/MANUAL [id number] 22:13:00* Test Item Value Reference Range Interpretation [...] MORPHOLOGY (test code = PLTMORPH) CBC W/MANUAL [id number] 22:13:00* Test Item Value Reference Range Interpretation [...] PLTEST) PLATELET MORPHOLOGY (test code = PLTMORPH) [id number] 21:47:00* Test Item Value Reference Range Interpretation Comments GLUBED (test code = GLUBED) 59 mg/dL 74-106 L Performed by certified tunnel elastic operator lockstitch at [facility] [id number] 21:11:00* Test Item Value Reference Range Interpretation Comments GLUBED (test code = GLUBED) 83 mg/dL 74-106 N Performed by certified tunnel elastic operator lockstitch at [facility] [id number] 12:49:00* Test Item Value Reference Range Interpretation Comments GLUBED (test code = GLUBED) 84 mg/dL 74-106 N Performed by certified tunnel elastic operator lockstitch at [facility] [id number] 09:33:00* Test Item Value Reference Range Interpretation Comments GLUBED (test code = GLUBED) 71 mg/dL 74-106 L Performed by certified tunnel elastic operator lockstitch at [facility] CBC W/AUTO [id number] 06:40:00* Test Item Value Reference Range Interpretation [...] 48 K/mm3 150-450 LL Results called to [id number] by KATY 12/13/18 0546Critical results verified and [...] = MDIFF) NO, ONLY SCAN NEEDED DIFFERENTIAL [id number] 06:40:00* Test Item Value Reference Range Interpretation Comments STAIN ACCEPTABILITY (test code = STN ACCEPTABLE) STAIN ACCEPTABLE POIKILOCYTOSIS (test code = POIK) 2+ ANISOCYTOSIS (test code = ANISO) 1+ MACROCYTOSIS (test code = MACR) 1+ PLATELET ESTIMATE (test code = PLTEST) DECREASED PLATELET MORPHOLOGY (test code = PLTMORPH) NORMAL BASIC METABOLIC [id number] 06:21:00* Test Item Value Reference Range Interpretation [...] code = CA) 7.3 mg/dL 8.5-10.1 L [id number] 06:21:00* Test Item Value Reference Range Interpretation Comments PHOSPHORUS (test code = PHOS) 2.9 mg/dL 2.5-4.9 N [id number] 06:21:00* Test Item Value Reference Range Interpretation Comments MAGNESIUM (test code = MAG) 1.6 mg/dL 1.8-2.4 L BASIC METABOLIC [id number] 06:11:00* Test Item Value Reference Range Interpretation [...] CALCIUM (test code = CA) mg/dL 8.5-10.1 [id number] 06:11:00* Test Item Value Reference Range Interpretation Comments PHOSPHORUS (test code = PHOS) mg/dL 2.5-4.9 [id number] 06:11:00* Test Item Value Reference Range Interpretation Comments MAGNESIUM (test code = MAG) mg/dL 1.8-2.4 CBC W/AUTO [id number] 05:49:00* Test Item Value Reference Range Interpretation [...] 48 K/mm3 150-450 LL Results called to [id number] by KATY 12/13/18 0546Critical results verified and [...] = MDIFF) NO, ONLY SCAN NEEDED DIFFERENTIAL [id number] 05:49:00* Test Item Value Reference Range Interpretation Comments STAIN ACCEPTABILITY (test code = STN ACCEPTABLE) MORPHOLOGY COMMENT (test code = MOC) PLATELET ESTIMATE (test code = PLTEST) PLATELET MORPHOLOGY (test code = PLTMORPH) CBC W/AUTO [id number] 05:48:00* Test Item Value Reference Range Interpretation [...] 48 K/mm3 150-450 LL Results called to [id number] by KATY 12/13/18 0546Critical results verified and [...] = MDIFF) NO, ONLY SCAN NEEDED DIFFERENTIAL [id number] 05:48:00* Test Item Value Reference Range Interpretation Comments STAIN ACCEPTABILITY (test code = STN ACCEPTABLE) CABOT RINGS (test code = CAB) MORPHOLOGY COMMENT (test code = MOC) PLATELET ESTIMATE (test code = PLTEST) PLATELET MORPHOLOGY (test code = PLTMORPH) CBC W/AUTO [id number] 05:48:00* Test Item Value Reference Range Interpretation [...] 48 K/mm3 150-450 LL Results called to [id number] by KATY 12/13/18 0546Critical results verified and [...] = MDIFF) NO, ONLY SCAN NEEDED DIFFERENTIAL [id number] 05:48:00* Test Item Value Reference Range Interpretation Comments STAIN ACCEPTABILITY (test code = STN ACCEPTABLE) MORPHOLOGY COMMENT (test code = MOC) PLATELET ESTIMATE (test code = PLTEST) PLATELET MORPHOLOGY (test code = PLTMORPH) CBC W/AUTO [id number] 05:48:00* Test Item Value Reference Range Interpretation [...] 48 K/mm3 150-450 LL Results called to [id number] by KATY 12/13/18 0546Critical results verified and [...] = MDIFF) NO, ONLY SCAN NEEDED DIFFERENTIAL [id number] 05:48:00* Test Item Value Reference Range Interpretation Comments STAIN ACCEPTABILITY (test code = STN ACCEPTABLE) CABOT RINGS (test code = CAB) MORPHOLOGY COMMENT (test code = MOC) PLATELET ESTIMATE (test code = PLTEST) PLATELET MORPHOLOGY (test code = PLTMORPH) [id number] 20:53:00* Test Item Value Reference Range Interpretation Comments GLUBED (test code = GLUBED) 78 mg/dL 74-106 N Performed by certified tunnel elastic operator lockstitch at [facility] [id number] 17:51:00* Test Item Value Reference Range Interpretation Comments GLUBED (test code = GLUBED) 79 mg/dL 74-106 N Performed by certified tunnel elastic operator lockstitch at [facility] B-TYPE NATRIURETIC [id number] 07:39:00* Test Item Value Reference Range Interpretation Comments B-TYPE NATRIURETIC PEPTIDE (test code = BNP) 370.99 pgram/mL 0-100 H BASIC METABOLIC [id number] 07:20:00* Test Item Value Reference Range Interpretation [...] code = CA) 7.5 mg/dL 8.5-10.1 L [id number] 07:20:00* Test Item Value Reference Range Interpretation Comments PHOSPHORUS (test code = PHOS) 2.6 mg/dL 2.5-4.9 N [id number] 07:20:00* Test Item Value Reference Range Interpretation Comments MAGNESIUM (test code = MAG) 1.9 mg/dL 1.8-2.4 N CALCIUM [id number] 07:20:00* Test Item Value Reference Range Interpretation Comments CALCIUM IONIZED (test code = ERICH) 1.18 mmol/L 1.12-1.32 N BASIC METABOLIC [id number] 07:11:00* Test Item Value Reference Range Interpretation [...] CALCIUM (test code = CA) mg/dL 8.5-10.1 [id number] 07:11:00* Test Item Value Reference Range Interpretation Comments PHOSPHORUS (test code = PHOS) mg/dL 2.5-4.9 [id number] 07:11:00* Test Item Value Reference Range Interpretation Comments MAGNESIUM (test code = MAG) mg/dL 1.8-2.4 CALCIUM [id number] 07:11:00* Test Item Value Reference Range Interpretation Comments CALCIUM IONIZED (test code = ERICH) 1.18 mmol/L 1.12-1.32 N BASIC METABOLIC [id number] 07:05:00* Test Item Value Reference Range Interpretation [...] CALCIUM (test code = CA) mg/dL 8.5-10.1 [id number] 07:05:00* Test Item Value Reference Range Interpretation Comments PHOSPHORUS (test code = PHOS) mg/dL 2.5-4.9 [id number] 07:05:00* Test Item Value Reference Range Interpretation Comments MAGNESIUM (test code = MAG) mg/dL 1.8-2.4 CALCIUM [id number] 07:05:00* Test Item Value Reference Range Interpretation Comments CALCIUM IONIZED (test code = ERICH) 1.18 mmol/L 1.12-1.32 N - XR CHEST 1 [id number] 06:49:00 FAX: Ilan Holt MD [place]: B St: DIS FAX: Ashley Juarez NP [phone] Name: MOJGAN CUMMINGS [facility] : 1950 Age/S: 68/F [address] Unit #: [id number] Loc: [place] [address] Phys: Ashley Hendrix NP Acct: [id number] Dis Date: Status: DIS IN PHONE #: [phone] Exam Date: 12/12/2018 0549 FAX #: [phone] Reason: respiratory failure EXAMS: CPT CODE: [id number] XR CHEST 1 V 42532 REASON FOR EXAM: respiratory failure EXAM ORDER [...] Stein; Ashley Hendrix NP Technologist: Abigail Darling [facility] Date/Time/By: 12/12/2018 (0649) : By: HarryVTL Orig Print D/T : S: 12/12/2018 (0652) PAGE 1 Sig julian Report - XR CHEST 1 [id number] 06:49:00 FAX: Ilan Holt MD [place]: St: [facility] FAX: Ashley Juarez NP [phone] Name: ZOILAMOJGAN MOLINA [facility] : 1950 Age/S: 68/F [address] Unit #: [id number] Loc: [place] [address] Phys: Ashley Hendrix NP Acct: [id number] Dis Date: Status: ADM IN PHONE #: [phone] Exam Date: 12/12/201849 FAX #: [phone] Reason: respiratory failure EXAMS: CPT CODE: [id number] XR CHEST 1 V 45055 REASON FOR EXAM: respiratory failure EXAM ORDER [...] cardiome osiel and pulmonary venous congestion at 0664 Reported and signed by: Abraham Toro M.D. CC: Ilan Stein; Ashley Hendrix NP Technologist: Abigail Darling Trnmird Date/Time/By: 12/12/2018 (0649) : By: GordoL Orig Print D/T : S: 12/12/2018 (0652) PAGE 1 Sig julian Report - XR CHEST 1 [id number] 06:49:00 FAX: Ilan Holt MD [place]: B St: DIS FAX: Ashley Juarez NP [phone] Name: MOJGAN CUMMINGS [facility] : 1950 Age/S: 68/F [address] Unit #: [id number] Loc: [place] [address] Phys: Ashley Hendrix NP Acct: [id number] Dis Date: Status: DIS IN PHONE #: [phone] Exam Date: 12/12/201849 FAX #: [phone] Reason: respiratory failure EXAMS: CPT CODE: [id number] XR CHEST 1 V 68195 REASON FOR EXAM: respiratory failure EXAM ORDER [...] cardiome osiel and pulmonary venous congestion at 0681 Reported and signed by: Abraham Toro M.D. CC: Ilan Stein; Ashley Hendrix NP Technologist: Abigail Darling Trnscrd Date/Time/By: 12/12/2018 (0649) : By: Rodrigo Orig Print D/T : S: 12/12/2018 (0652) PAGE 1 Sig julian Report CBC W/AUTO [id number] 06:40:00* Test Item Value Reference Range Interpretation [...] (test code = MDIFF) NO ARTERIAL BLOOD [id number] 05:57:00* Test Item Value Reference Range Interpretation [...] Norma 05:55 - 12/12/2018; by Ac Hernandez, TRACK EQUIPMENT OPERATOR ABG O2 SATURATION (test code = [...] Norma 05:55 - 12/12/2018; by Ac Hernandez, DELROY METHEMOGLOBIN (test code = METHGB) 0.4 % 0.0-1.50 N O2 CONTENT (test code = O2CT) 15.3 % vol 18.0-22.0 L CALCIUM [id number] 16:28:00* Test Item Value Reference Range Interpretation Comments CALCIUM IONIZED (test code = ERICH) 1.14 mmol/L 1.12-1.32 N CBC W/AUTO [id number] 16:01:00* Test Item Value Reference Range Interpretation [...] 47 K/mm3 150-450 LL Results called to [id number] by [facility] 12/11/18 1444Critical results verified and read back [...] = MDIFF) NO, ONLY SCAN NEEDED DIFFERENTIAL [id number] 16:01:00* Test Item Value Reference Range Interpretation [...] code = PLTMORPH) APPEAR LARGE BASIC METABOLIC [id number] 14:58:00* Test Item Value Reference Range Interpretation [...] code = CA) 7.2 mg/dL 8.5-10.1 L [id number] 14:58:00* Test Item Value Reference Range Interpretation Comments PHOSPHORUS (test code = PHOS) 3.1 mg/dL 2.5-4.9 N [id number] 14:58:00* Test Item Value Reference Range Interpretation Comments MAGNESIUM (test code = MAG) 1.6 mg/dL 1.8-2.4 L CALCIUM [id number] 14:58:00* Test Item Value Reference Range Interpretation Comments CALCIUM IONIZED (test code = ERICH) mmol/L 1.12-1.32 CBC W/AUTO [id number] 14:45:00* Test Item Value Reference Range Interpretation [...] 47 K/mm3 150-450 LL Results called to [place] [address] by [facility] 12/11/18 1444Critical results verified and read back [...] = MDIFF) NO, ONLY SCAN NEEDED DIFFERENTIAL [id number] 14:45:00* Test Item Value Reference Range Interpretation Comments STAIN ACCEPTABILITY (test code = STN ACCEPTABLE) MORPHOLOGY COMMENT (test code = MOC) PLATELET ESTIMATE (test code = PLTEST) PLATELET MORPHOLOGY (test code = PLTMORPH) CBC W/AUTO [id number] 14:44:00* Test Item Value Reference Range Interpretation [...] 47 K/mm3 150-450 LL Results called to [place] [address] by [facility] 12/11/18 1444Critical results verified and read back [...] = MDIFF) NO, ONLY SCAN NEEDED DIFFERENTIAL [id number] 14:44:00* Test Item Value Reference Range Interpretation Comments STAIN ACCEPTABILITY (test code = STN ACCEPTABLE) CABOT RINGS (test code = CAB) MORPHOLOGY COMMENT (test code = MOC) PLATELET ESTIMATE (test code = PLTEST) PLATELET MORPHOLOGY (test code = PLTMORPH) CBC W/AUTO [id number] 14:44:00* Test Item Value Reference Range Interpretation [...] 47 K/mm3 150-450 LL Results called to [place] [address] by V.LAB.[facility] 12/11/18 1444Critical results verified and read back [...] = MDIFF) NO, ONLY SCAN NEEDED DIFFERENTIAL [id number] 14:44:00* Test Item Value Reference Range Interpretation Comments STAIN ACCEPTABILITY (test code = STN ACCEPTABLE) MORPHOLOGY COMMENT (test code = MOC) PLATELET ESTIMATE (test code = PLTEST) PLATELET MORPHOLOGY (test code = PLTMORPH) CBC W/AUTO [id number] 14:44:00* Test Item Value Reference Range Interpretation [...] 47 K/mm3 150-450 LL Results called to [place] [address] by V[facility]LAB[facility] 12/11/18 1444Critical results verified and read back [...] = MDIFF) NO, ONLY SCAN NEEDED DIFFERENTIAL [id number] 14:44:00* Test Item Value Reference Range Interpretation Comments STAIN ACCEPTABILITY (test code = STN ACCEPTABLE) CABOT RINGS (test code = CAB) MORPHOLOGY COMMENT (test code = MOC) PLATELET ESTIMATE (test code = PLTEST) PLATELET MORPHOLOGY (test code = PLTMORPH) BASIC METABOLIC [id number] 07:46:00* Test Item Value Reference Range Interpretation [...] code = CA) 7.2 mg/dL 8.5-10.1 L [id number] 07:46:00* Test Item Value Reference Range Interpretation Comments PHOSPHORUS (test code = PHOS) 3.4 mg/dL 2.5-4.9 N [id number] 07:46:00* Test Item Value Reference Range Interpretation Comments MAGNESIUM (test code = MAG) 1.9 mg/dL 1.8-2.4 N BASIC METABOLIC [id number] 07:37:00* Test Item Value Reference Range Interpretation [...] CALCIUM (test code = CA) mg/dL 8.5-10.1 [id number] 07:37:00* Test Item Value Reference Range Interpretation Comments PHOSPHORUS (test code = PHOS) mg/dL 2.5-4.9 [id number] 07:37:00* Test Item Value Reference Range Interpretation Comments MAGNESIUM (test code = MAG) mg/dL 1.8-2.4 CBC W/AUTO [id number] 07:35:00* Test Item Value Reference Range Interpretation [...] = MDIFF) NO, ONLY SCAN NEEDED DIFFERENTIAL [id number] 07:35:00* Test Item Value Reference Range Interpretation Comments STAIN ACCEPTABILITY (test code = STN ACCEPTABLE) STAIN ACCEPTABLE ANISOCYTOSIS (test code = ANISO) 1+ MACROCYTOSIS (test code = MACR) 1+ PLATELET ESTIMATE (test code = PLTEST) DECREASED PLATELET MORPHOLOGY (test code = PLTMORPH) NORMAL CBC W/AUTO [id number] 07:13:00* Test Item Value Reference Range Interpretation [...] = MDIFF) NO, ONLY SCAN NEEDED DIFFERENTIAL [id number] 07:13:00* Test Item Value Reference Range Interpretation Comments STAIN ACCEPTABILITY (test code = STN ACCEPTABLE) CABOT RINGS (test code = CAB) MORPHOLOGY COMMENT (test code = MOC) PLATELET ESTIMATE (test code = PLTEST) PLATELET MORPHOLOGY (test code = PLTMORPH) CBC W/AUTO [id number] 07:13:00* Test Item Value Reference Range Interpretation [...] = MDIFF) NO, ONLY SCAN NEEDED DIFFERENTIAL [id number] 07:13:00* Test Item Value Reference Range Interpretation Comments STAIN ACCEPTABILITY (test code = STN ACCEPTABLE) MORPHOLOGY COMMENT (test code = MOC) PLATELET ESTIMATE (test code = PLTEST) PLATELET MORPHOLOGY (test code = PLTMORPH) CBC W/AUTO [id number] 07:13:00* Test Item Value Reference Range Interpretation [...] = MDIFF) NO, ONLY SCAN NEEDED DIFFERENTIAL [id number] 07:13:00* Test Item Value Reference Range Interpretation Comments STAIN ACCEPTABILITY (test code = STN ACCEPTABLE) MORPHOLOGY COMMENT (test code = MOC) PLATELET ESTIMATE (test code = PLTEST) PLATELET MORPHOLOGY (test code = PLTMORPH) CBC W/AUTO [id number] 07:13:00* Test Item Value Reference Range Interpretation [...] = MDIFF) NO, ONLY SCAN NEEDED DIFFERENTIAL [id number] 07:13:00* Test Item Value Reference Range Interpretation Comments STAIN ACCEPTABILITY (test code = STN ACCEPTABLE) CABOT RINGS (test code = CAB) MORPHOLOGY COMMENT (test code = MOC) PLATELET ESTIMATE (test code = PLTEST) PLATELET MORPHOLOGY (test code = PLTMORPH) - XR CHEST 1 [id number] 06:59:00 FAX: Alecia Girard NP [phone] [place]: St: DIS FAX: Ilan Holt MD Name: MOJGAN CUMMINGS [facility] : 1950 Age/S: 68/F [address] Unit #: [id number] Loc: [place] [address] Phys: Alecia Girard NP Acct: [id number] Dis Date: Status: DIS IN PHONE #: [phone] Exam Date: 12/11/2018 0635 FAX #: [phone] Reason: sob EXAMS: CPT CODE: [id number] XR CHEST 1 V 89788 REASON FOR EXAM: sob EXAM ORDER DATE: [...] By: GordoL Orig Print D/T: S: 12/11/2018 (8056) PAGE 1 Signed Report - XR CHEST 1 V 2018-12-11 06:59:00 FAX: Alecia Girard NP [phone] [place]: St: ADM FAX: Ialn Holt MD Name: MOJGAN CUMMINGS [facility] : 1950 Age/S: 68/F [address] [facility] Unit #: [id number] Loc: V.S17 [place] [address] Phys: Alecia Girard NP Acct: [id number] Dis Date: Status: ADM IN PHONE #: [phone] Exam Date: 12/11/2018 0635 FAX #: [phone] Reason: sob EXAMS: CPT CODE: [id number] XR CHEST 1 V 08921 REASON FOR EXAM: sob EXAM ORDER DATE: [...] By: Rodrigo Orig Print D/T: S: 12/11/2018 (0567) PAGE 1 Signed Report - XR CHEST 1 V 2018-12-11 06:59:00 FAX: Alecia Girard NP [phone] [place]: St: DIS FAX: Ilan Holt MD Name: MOJGAN CUMMINGS [facility] : 1950 Age/S: 68/F [address] Unit #: [id number] Loc: [place] [address] Phys: Alecia Girard NP Acct: [id number] Dis Date: Status: DIS IN PHONE #: [phone] Exam Date: 12/11/2018 0635 FAX #: [phone] Reason: sob EXAMS: CPT CODE: [id number] XR CHEST 1 V 01240 REASON FOR EXAM: sob EXAM ORDER DATE: [...] by: Brayan Toro M.D. CC: Alecia Girard SHOT DROPPER; Ilan Stein Technologist: OCTAVIO VASQUEZ JR Trnscrd Date/Time/By: 12/11/2018 (0659) : By: GordoL Orig Print D/T: S: 12/11/2018 (0739) PAGE 1 Signed Report CBC W/AUTO DIFF [...] = MDIFF) NO, ONLY SCAN NEEDED DIFFERENTIAL [id number] 10:13:00* Test Item Value Reference Range Interpretation Comments STAIN ACCEPTABILITY (test code = STN ACCEPTABLE) STAIN ACCEPTABLE POLYCHROMASIA (test code = POLC) 1+ HYPOCHROMIA (test code = HYPO) 1+ POIKILOCYTOSIS (test code = POIK) 1+ ANISOCYTOSIS (test code = ANISO) 2+ SCHISTOCYTES (test code = AHNH) 1+ PLATELET ESTIMATE (test code = PLTEST) DECREASED PLATELET MORPHOLOGY (test code = PLTMORPH) NORMAL - XR CHEST 1 [id number] 07:27:00 FAX: Alecia Girard NP [phone] [place]: B St: DIS FAX: Ilan Holt MD Name: MOJGAN CUMMINGS [facility] : 1950 Age/S: 68/F [address] Unit #: [id number] Loc: [place] [address] Phys: Alecia Girard NP Acct: [id number] Dis Date: Status: DIS IN PHONE #: [phone] Exam Date: 12/10/2018 0453 FAX #: [phone] Reason: sob EXAMS: CPT CODE: [id number] XR CHEST 1 V 80220 HISTORY: Shortness of breath. COMPARISON: Previous day. Tracheostomy tube and the right central line are unchanged. No acute infiltrates, effusion or congestion. Dependent changes. Cardiomegaly. IMPRESSION: No acute infi ltrates, effusion or congestion. Dependent changes. at 0727 Report ed and signed by: Clem Grissom M.D. CC: Alecia Girard NP; Ilan Stein Technologist: RT CISCO(R); Mary Harris Date/Time/By: 12/10/2018 (07) : By: donna [email or web address] Orig Print D/T: S: 12/10/2018 (0730) P AGE 1 Signed Report - XR CHEST 1 [id number] 07:27:00 FAX: Alecia Girard NP [phone] [place]: St: ADM FAX: Ilan Holt MD Name: MOJGAN CUMMINGS [facility] : 1950 Age/S: 68/F [address] Unit #: [id number] Loc[place] [address] Phys: Alecia Girard NP Acct: [id number] Dis Date: Status: ADM IN PHONE #: [phone] Exam Date: 12/10/2018 0453 FAX #: [phone] Reason: sob EXAMS: CPT CODE: [id number] XR CHEST 1 V 16018 HISTORY: Shortness of breath. COMPARISON: Previous day. Tracheostomy tube and the right central line are unchanged. No acute infiltrates, effusion or congestion. Dependent changes. Cardiomegaly. IMPRESSION: No acute infi ltrates, effusion or congestion. Dependent changes. at 0727 Report ed and signed by: Clem Grissom M.D. CC: Alecia Girard NP; Ilan Stein Technologist: RT CISCO(R); Mary Harrisrd Date/Time/By: 12/10/2018 (726) : By: donna [email or web address] Orig Print D/T: S: 12/10/2018 (729) P AGE 1 Signed Report - XR CHEST 1 [id number] 07:27:00 FAX: Alecia Girard NP [phone] [place]: St: DIS FAX: Ilan Holt MD Name: MOJGAN CUMMINGS [facility] : 1950 Age/S: 68/F [address] Unit #: [id number] Loc: [place] [address] Phys: Alecia Girard NP Acct: [id number] Dis Date: Status: DIS IN PHONE #: [phone] Exam Date: 12/10/2018 0453 FAX #: [phone] Reason: sob EXAMS: CPT CODE: [id number] XR CHEST 1 V 19901 HISTORY: Shortness of breath. COMPARISON: Previous day. Tracheostomy tube and the right central line are unchanged. No acute infiltrates, effusion or congestion. Dependent changes. Cardiomegaly. IMPRESSION: No acute infi ltrates, effusion or congestion. Dependent changes. at 0727 Report ed and signed by: Clem Grissom M.D. CC: Alecia Girard SHOT DROPPER; Ilan Stein Technologist: JUNAID BRAY, RT(R); Mary Harris Trnscrd Date/Time/By: 12/10/2018 (726) : By: donna [email or web address] Orig Print D/T: S: 12/10/2018 (729) P AGE 1 Signed Report CBC W/AUTO [id number] 07:20:00* Test Item Value Reference Range Interpretation [...] = MDIFF) NO, ONLY SCAN NEEDED DIFFERENTIAL [id number] 07:20:00* Test Item Value Reference Range Interpretation Comments STAIN ACCEPTABILITY (test code = STN ACCEPTABLE) CABOT RINGS (test code = CAB) MORPHOLOGY COMMENT (test code = MOC) PLATELET ESTIMATE (test code = PLTEST) PLATELET MORPHOLOGY (test code = PLTMORPH) CBC W/AUTO [id number] 07:20:00* Test Item Value Reference Range Interpretation [...] = MDIFF) NO, ONLY SCAN NEEDED DIFFERENTIAL [id number] 07:20:00* Test Item Value Reference Range Interpretation Comments STAIN ACCEPTABILITY (test code = STN ACCEPTABLE) CABOT RINGS (test code = CAB) MORPHOLOGY COMMENT (test code = MOC) PLATELET ESTIMATE (test code = PLTEST) PLATELET MORPHOLOGY (test code = PLTMORPH) CBC W/AUTO [id number] 07:20:00* Test Item Value Reference Range Interpretation [...] = MDIFF) NO, ONLY SCAN NEEDED DIFFERENTIAL [id number] 07:20:00* Test Item Value Reference Range Interpretation Comments STAIN ACCEPTABILITY (test code = STN ACCEPTABLE) MORPHOLOGY COMMENT (test code = MOC) PLATELET ESTIMATE (test code = PLTEST) PLATELET MORPHOLOGY (test code = PLTMORPH) CBC W/AUTO [id number] 07:20:00* Test Item Value Reference Range Interpretation [...] = MDIFF) NO, ONLY SCAN NEEDED DIFFERENTIAL [id number] 07:20:00* Test Item Value Reference Range Interpretation Comments STAIN ACCEPTABILITY (test code = STN ACCEPTABLE) CABOT RINGS (test code = CAB) MORPHOLOGY COMMENT (test code = MOC) PLATELET ESTIMATE (test code = PLTEST) PLATELET MORPHOLOGY (test code = PLTMORPH) BASIC METABOLIC [id number] 07:03:00* Test Item Value Reference Range Interpretation [...] code = CA) 7.7 mg/dL 8.5-10.1 L [id number] 07:03:00* Test Item Value Reference Range Interpretation Comments PHOSPHORUS (test code = PHOS) 1.8 mg/dL 2.5-4.9 L [id number] 07:03:00* Test Item Value Reference Range Interpretation Comments MAGNESIUM (test code = MAG) 1.8 mg/dL 1.8-2.4 N BASIC METABOLIC [id number] 06:56:00* Test Item Value Reference Range Interpretation [...] CALCIUM (test code = CA) mg/dL 8.5-10.1 [id number] 06:56:00* Test Item Value Reference Range Interpretation Comments PHOSPHORUS (test code = PHOS) mg/dL 2.5-4.9 [id number] 06:56:00* Test Item Value Reference Range Interpretation Comments MAGNESIUM (test code = MAG) mg/dL 1.8-2.4 BASIC METABOLIC [id number] 13:59:00* Test Item Value Reference Range Interpretation [...] code = CA) 7.5 mg/dL 8.5-10.1 L [id number] 13:59:00* Test Item Value Reference Range Interpretation Comments PHOSPHORUS (test code = PHOS) 2.8 mg/dL 2.5-4.9 N [id number] 13:59:00* Test Item Value Reference Range Interpretation Comments MAGNESIUM (test code = MAG) 2.5 mg/dL 1.8-2.4 H BASIC METABOLIC [id number] 13:56:00* Test Item Value Reference Range Interpretation [...] CALCIUM (test code = CA) mg/dL 8.5-10.1 [id number] 13:56:00* Test Item Value Reference Range Interpretation Comments PHOSPHORUS (test code = PHOS) mg/dL 2.5-4.9 [id number] 13:56:00* Test Item Value Reference Range Interpretation Comments MAGNESIUM (test code = MAG) mg/dL 1.8-2.4 CBC W/AUTO [id number] 12:42:00* Test Item Value Reference Range Interpretation Comments WHITE BLOOD CELL (test code = WBC) 10.3 K/mm3 4.5-12.5 N RED BLOOD CELL (test code = RBC) 2.44 mill/mm3 3.7-5.2 L HEMOGLOBIN (test code = HGB) 7.2 gram/dL 11.5-15.5 L RESULT VERIFIED BY REPEAT ANALYSIS HEMATOCRIT (test code = HCT) 21.6 % 36.0-46.0 LL Results called to [id number] by VFayeLABSARAH 12/09/18 0727Critical results verified and [...] = MDIFF) NO, ONLY SCAN NEEDED DIFFERENTIAL [id number] 12:42:00* Test Item Value Reference Range Interpretation Comments STAIN ACCEPTABILITY (test code = STN ACCEPTABLE) STAIN ACCEPTABLE ANISOCYTOSIS (test code = ANISO) 1+ PLATELET ESTIMATE (test code = PLTEST) DECREASED PLATELET MORPHOLOGY (test code = PLTMORPH) SIZE VARIABLE ARTERIAL BLOOD [id number] 09:17:00* Test Item Value Reference Range Interpretation [...] 35.0 ABG SITE (test code = SITEA) [employer] HEMATOCRIT (test code = HCT/ABG) 24 % 35-47 L TOTAL HGB (test code = THB) 8.2 gram/dL 11.5-15.5 L HGB O2 SAT (test code = HBOSAT) 93.8 % 94.00-98.00 L CARBOXYHEMOGLOBIN (test code = HOHGBT) 0.3 %totalHg 0.5-1.5 LL Results called to and read back by Philip : - 12/09/2018; by RISSA METHEMOGLOBIN (test code = METHGB) 0.6 % 0.0-1.50 N O2 CONTENT (test code = O2CT) 11.0 % vol 18.0-22.0 L BASIC METABOLIC [id number] 07:55:00* Test Item Value Reference Range Interpretation Comments SODIUM (test code = NA) 142 mmol/L 136-145 N POTASSIUM (test code = K) 2.0 mmol/L 3.5-5.1 LL Re sults called to PEG2300 by VFayeLAB.LDB 12/09/18 0753Critical results verified and read back [...] code = CA) 7.4 mg/dL 8.5-10.1 L [id number] 07:55:00* Test Item Value Reference Range Interpretation Comments PHOSPHORUS (test code = PHOS) 1.9 mg/dL 2.5-4.9 L [id number] 07:55:00* Test Item Value Reference Range Interpretation Comments MAGNESIUM (test code = MAG) 1.6 mg/dL 1.8-2.4 L CALCIUM [id number] 07:55:00* Test Item Value Reference Range Interpretation Comments CALCIUM IONIZED (test code = ERICH) 1.14 mmol/L 1.12-1.32 N CBC W/AUTO [id number] 07:29:00* Test Item Value Reference Range Interpretation Comments WHITE BLOOD CELL (test code = WBC) 10.3 K/mm3 4.5-12.5 N RED BLOOD CELL (test code = RBC) 2.44 mill/mm3 3.7-5.2 L HEMOGLOBIN (test code = HGB) 7.2 gram/dL 11.5-15.5 L RESULT VERIFIED BY REPEAT ANALYSIS HEMATOCRIT (test code = HCT) 21.6 % 36.0-46.0 LL Results called to [id number] by JEVON 12/09/18 0727Critical results verified and [...] = MDIFF) NO, ONLY SCAN NEEDED DIFFERENTIAL [id number] 07:29:00* Test Item Value Reference Range Interpretation Comments STAIN ACCEPTABILITY (test code = STN ACCEPTABLE) CABOT RINGS (test code = CAB) MORPHOLOGY COMMENT (test code = MOC) PLATELET ESTIMATE (test code = PLTEST) PLATELET MORPHOLOGY (test code = PLTMORPH) CBC W/AUTO [id number] 07:29:00* Test Item Value Reference Range Interpretation Comments WHITE BLOOD CELL (test code = WBC) 10.3 K/mm3 4.5-12.5 N RED BLOOD CELL (test code = RBC) 2.44 mill/mm3 3.7-5.2 L HEMOGLOBIN (test code = HGB) 7.2 gram/dL 11.5-15.5 L RESULT VERIFIED BY REPEAT ANALYSIS HEMATOCRIT (test code = HCT) 21.6 % 36.0-46.0 LL Results called to [id number] by JEVON 12/09/18 0727Critical results verified and [...] = MDIFF) NO, ONLY SCAN NEEDED DIFFERENTIAL [id number] 07:29:00* Test Item Value Reference Range Interpretation Comments STAIN ACCEPTABILITY (test code = STN ACCEPTABLE) CABOT RINGS (test code = CAB) MORPHOLOGY COMMENT (test code = MOC) PLATELET ESTIMATE (test code = PLTEST) PLATELET MORPHOLOGY (test code = PLTMORPH) CBC W/AUTO [id number] 07:29:00* Test Item Value Reference Range Interpretation Comments WHITE BLOOD CELL (test code = WBC) 10.3 K/mm3 4.5-12.5 N RED BLOOD CELL (test code = RBC) 2.44 mill/mm3 3.7-5.2 L HEMOGLOBIN (test code = HGB) 7.2 gram/dL 11.5-15.5 L RESULT VERIFIED BY REPEAT ANALYSIS HEMATOCRIT (test code = HCT) 21.6 % 36.0-46.0 LL Results called to [id number] by V.LABSARAH 12/09/18 0727Critical results verified and read back [...] = MDIFF) NO, ONLY SCAN NEEDED DIFFERENTIAL [id number] 07:29:00* Test Item Value Reference Range Interpretation Comments STAIN ACCEPTABILITY (test code = STN ACCEPTABLE) MORPHOLOGY COMMENT (test code = MOC) PLATELET ESTIMATE (test code = PLTEST) PLATELET MORPHOLOGY (test code = PLTMORPH) CBC W/AUTO [id number] 07:29:00* Test Item Value Reference Range Interpretation Comments WHITE BLOOD CELL (test code = WBC) 10.3 K/mm3 4.5-12.5 N RED BLOOD CELL (test code = RBC) 2.44 mill/mm3 3.7-5.2 L HEMOGLOBIN (test code = HGB) 7.2 gram/dL 11.5-15.5 L RESULT VERIFIED BY REPEAT ANALYSIS HEMATOCRIT (test code = HCT) 21.6 % 36.0-46.0 LL Results called to [id number] by JEVON 12/09/18 0727Critical results verified and [...] = MDIFF) NO, ONLY SCAN NEEDED DIFFERENTIAL [id number] 07:29:00* Test Item Value Reference Range Interpretation Comments STAIN ACCEPTABILITY (test code = STN ACCEPTABLE) CABOT RINGS (test code = CAB) MORPHOLOGY COMMENT (test code = MOC) PLATELET ESTIMATE (test code = PLTEST) PLATELET MORPHOLOGY (test code = PLTMORPH) BASIC METABOLIC [id number] 07:27:00* Test Item Value Reference Range Interpretation [...] CALCIUM (test code = CA) mg/dL 8.5-10.1 [id number] 07:27:00* Test Item Value Reference Range Interpretation Comments PHOSPHORUS (test code = PHOS) mg/dL 2.5-4.9 [id number] 07:27:00* Test Item Value Reference Range Interpretation Comments MAGNESIUM (test code = MAG) mg/dL 1.8-2.4 CALCIUM [id number] 07:27:00* Test Item Value Reference Range Interpretation Comments CALCIUM IONIZED (test code = ERICH) 1.14 mmol/L 1.12-1.32 N [id number] 07:21:00* Test Item Value Reference Range Interpretation Comments TROPONIN-T (test code = TROPT) 0.024 ng/mL <0.011 HH Verified by repeat analysisPerformed At: [address] [id number] Sanjai MD Ph:[phone] performed at: [facility] [address] [place] [address] - XR CHEST 1 [id number] 07:10:00 FAX: Alecia Girard NP [phone] [place]: St: DIS FAX: Ilan Holt MD Name: MOJGAN CUMMINGS [facility] : 1950 Age/S: 68/F [address] Unit #: [id number] Loc: [place] [address] Phys: Alecia Girard NP Acct: [id number] Dis Date: Status: DIS IN PHONE #: [phone] Exam Date: 12/09/2018 0455 FAX #: [phone] Reason: sob EXAMS: CPT CODE: [id number] XR CHEST 1 V 52100 REASON FOR EXAM: sob EXAM ORDER DATE: [...] by: Brayan Toro M.D. CC: Alecia Girard SHOT DROPPER; Ilan Stein Technologist: BROOKE BRAY RT(R); Mary Harris Trnscrd Date/Time/By: 12/09 (0710) : By: Rodrigo Orig Print D/T: S: 12/09/2018 (0712) PAGE 1 Signed Report - XR CHEST 1 [id number] 07:10:00 FAX: Alecia Girard NP [phone] [place]: [address] St: ADM FAX: Ilan Holt MD Name: MOJGAN CUMMINGS [facility] : 1950 Age/S: 68/F [address] [facility] Unit #: [id number] [facility] [place] [address] Phys: Alecia Girard NP Acct: [id number] Dis Date: Status: ADM IN PHONE #: [phone] Exam Date: 12/09/2018 0455 FAX #: [phone] Reason: sob EXAMS: CPT CODE: [id number] XR CHEST 1 V 98236 REASON FOR EXAM: sob EXAM ORDER DATE: [...] 1 Signed Report - XR CHEST 1 [id number] 07:10:00 FAX: Alecia Girard NP [phone] [place]: St: DIS FAX: Ilan Holt MD Name: MOJGAN CUMMINGS [facility] : 1950 Age/S: 68/F [address] [facility] Unit #: [id number] Loc: [place] [address] Phys: Alecia Girard NP Acct: [id number] Dis Date: Status: DIS IN PHONE #: [phone] Exam Date: 12/09/2018 0455 FAX #: [phone] Reason: sob EXAMS: CPT CODE: [id number] XR CHEST 1 V 19516 REASON FOR EXAM: sob EXAM ORDER DATE: [...] Harris Trnscrd Date/Time/By: 12/09 (0710) : By: t.SDR.VTL Orig Print D/T: S: 12/09/2018 (8330) PAGE 1 Signed Report [id number] 07:07:00* Test Item Value Reference Range Interpretation Comments TROPONIN-T (test code = TROPT) 0.024 ng/mL Test performed at: [facility] [address] [place] [address] BASIC METABOLIC [id number] 17:09:00* Test Item Value Reference Range Interpretation Comments SODIUM (test code = NA) 139 mmol/L 136-145 N POTASSIUM (test code = K) 2.8 mmol/L 3.5-5.1 LL Re sults called to [id number] by [email or web address] 12/08/18 1709Critical results verified and read back [...] code = CA) 7.4 mg/dL 8.5-10.1 L [id number] 17:09:00* Test Item Value Reference Range Interpretation Comments PHOSPHORUS (test code = PHOS) 2.9 mg/dL 2.5-4.9 N [id number] 17:09:00* Test Item Value Reference Range Interpretation Comments MAGNESIUM (test code = MAG) 1.8 mg/dL 1.8-2.4 N CALCIUM [id number] 17:09:00* Test Item Value Reference Range Interpretation Comments CALCIUM IONIZED (test code = ERICH) 1.09 mmol/L 1.12-1.32 L BASIC METABOLIC [id number] 16:34:00* Test Item Value Reference Range Interpretation [...] CALCIUM (test code = CA) mg/dL 8.5-10.1 [id number] 16:34:00* Test Item Value Reference Range Interpretation Comments PHOSPHORUS (test code = PHOS) mg/dL 2.5-4.9 [id number] 16:34:00* Test Item Value Reference Range Interpretation Comments MAGNESIUM (test code = MAG) mg/dL 1.8-2.4 CALCIUM [id number] 16:34:00* Test Item Value Reference Range Interpretation Comments CALCIUM IONIZED (test code = ERICH) 1.09 mmol/L 1.12-1.32 L CBC W/O [id number] 16:03:00* Test Item Value Reference Range Interpretation [...] code = MPV) 13.1 fL 6.7-11.0 H [id number] 10:07:00* Test Item Value Reference Range Interpretation Comments GLYCOSYLATED HEMOGLOBIN (HA1C) (test code = GLYHGB) < 3.5 % HbA1 4. 8-6.0 L ESTIMATED AVERAGE GLUCOSE (test code = EAG) 54 MG/DL CBC W/MANUAL [id number] 07:57:00* Test Item Value Reference Range Interpretation Comments WHITE BLOOD CELL (test code = WBC) 11.8 K/mm3 4.5-12.5 N RED BLOOD CELL (test code = RBC) 2.50 mill/mm3 3.7-5.2 L HEMOGLOBIN (test code = HGB) 7.2 gram/dL 11.5-15.5 L HEMATOCRIT (test code = HCT) 21.6 % 36.0-46.0 LL Results called to [id number] by ARMAND 12/08/18 0656Critical results verified and [...] PLTMORPH) SIZE VARIABLE - XR CHEST 1 [id number] 07:31:00 FAX: Ilan Holt MD [place]: B St: DIS FAX: Charo Iraheta MD [phone] Name: MOJGAN CUMMINGS [facility] : 1950 Age/S: 68/F [address] [facility]: [id number] Loc: [facility] [place] [address] Phys: Charo Iraheta MD Acct: [id number] Dis Date: Status: DIS IN PHONE #: [phone] Exam Date: 12/08/2018 0540 FAX #: [phone] Reason: sob EXAMS: CPT CODE: [id number] XR CHEST 1 V 46011 REASON FOR EXAM: sob EXAM ORDER DATE: [...] central line. IMPRESSION: No active disease. at 0761 Reported and signed by: Brayan Toro M.D. CC: Ilan Stein; Charo Iraheta MD Technologist: OCTAVIO VASQUEZ JR Trnscrd Date/Time/By: 12/08/2018 (0731) : By: Nathalie.VTL Orig Print D/T: S: 12/08/2018 (0734) PAGE 1 Signed Report - XR CHEST 1 [id number] 07:31:00 FAX: Ilan Holt MD [place]: B St: ADM FAX: Charo Iraheta MD [phone] Name: MOJGAN CUMMINGS [facility] : 1950 Age/S: 68/F [address] [facility] Unit #: [id number] Loc: [address] [place] [address] Phys: Charo Iraheta MD Acct: [id number] Dis Date: Status: ADM IN PHONE #: [phone] Exam Date: 12/08/2018539 FAX #: [phone] Reason: sob EXAMS: CPT CODE: [id number] XR CHEST 1 V 71013 REASON FOR EXAM: sob EXAM ORDER DATE: [...] central line. IMPRESSION: No active disease. at 0792 Reported and signed by: Brayan Toro M.D. CC: Ilan Stein; Charo Iraheta MD Technologist: OCTAVIO VASQUEZ JR Trnscrd Date/Time/By: 12/08/2018 (07) : By: GordoL Orig Print D/T: S: 12/08/2018 (0734) PAGE 1 Signed Report - XR CHEST 1 [id number] 07:31:00 FAX: Ilan Holt MD [place]: St: DIS FAX: Charo Iraheta MD [phone] Name: MOJGAN CUMMINGS [facility] : 1950 Age/S: 68/F [address] [facility] Unit #: [id number] Loc: [place] [address] Phys: Charo Iraheta MD Acct: [id number] Dis Date: Status: DIS IN PHONE #: [phone] Exam Date: 12/08/2018 0540 FAX #: [phone] Reason: sob EXAMS: CPT CODE: [id number] XR CHEST 1 V 26023 REASON FOR EXAM: sob EXAM ORDER DATE: [...] central line. IMPRESSION: No active disease. at 0731 Reported and signed by: Brayan Toro M.D. CC: Ilan Stein; Charo Iraheta MD Technologist: OCTAVIO VASQUEZ JR Trnscrd Date/Time/By: 12/08/2018 (0731) : By: Nathalie.VTL Orig Print D/T: S: 12/08/2018 (0735) PAGE 1 Signed Report - XR ABDOMEN [id number] 07:30:00 FAX: Ilan Holt MD [place]: B St: DIS Name: MOJGAN SAUCEDO [facility] : [birth year] Age/S: 68/F [address] [facility] Unit #: [id number] Loc: [place] [address] Phys: Ilan Stein MD Acct: [id number] Dis Date: Status: DIS IN PHONE #: [phone] Exam Date: 12/08/2018 05 FAX #: [phone] Reason: ileus EXAMS: CPT CODE: [id number] XR ABDOMEN 2V 20222 REASON FOR EXAM: ileus EXAM ORDER DATE: [...] Technologist: OCTAVIO VASQUEZ JR Trnscrd Date/Time/By: 12/08/2018 (09) : By: GordoL Orig Print D/T: S: 12/08/2018 (3645) PAGE 1 Signed Report - XR ABDOMEN [id number] 07:30:00 FAX: Ilan Holt MD [place]: St: ADM Name: MOJGAN SAUCEDO [facility] : [birth year] Age/S: 68/F [address] [facility] Unit #: [id number] Loc: [address] [address] Phys: Ilan Stein MD Acct: [id number] Dis Date: Status: ADM IN PHONE #: [phone] Exam Date: 12/08/2018 0540 FAX #: [phone] Reason: ileus EXAMS: CPT CODE: [id number] XR ABDOMEN 2V 73758 REASON FOR EXAM: ileus EXAM ORDER DATE: [...] Technologist: OCTAVIO VASQUEZ JR Trnscrd Date/Time/By: 12/08/2018 (78) : By: HarryVTL Orig Print D/T: S: 12/08/2018 (8850) PAGE 1 Signed Report - XR ABDOMEN [id number] 07:30:00 FAX: Ilan Holt MD [place]: St: DIS Name: MOJGAN SAUCEDO [facility] : [birth year] Age/S: 68/F [address] [facility] Unit #: [id number] Loc: [place] [address] Phys: Ilan Stein MD Acct: [id number] Dis Date: Status: DIS IN PHONE #: [phone] Exam Date: 12/08/2018539 FAX #: [phone] Reason: ileus EXAMS: CPT CODE: [id number] XR ABDOMEN 2V 40548 REASON FOR EXAM: ileus EXAM ORDER DATE: [...] d signed by: Brayan Toro M.D. CC: Killam,Ilan Technologist: OCTAVIO Velizscrd Date/Time/By: 12/08/2018 (0730) : By: HarryVTL Orig Print D/T: S: 12/08/2018 (0732) PAGE 1 Signed Report BASIC METABOLIC PANEL 2018-12-08 07:14:00* Test Item Value Reference Range Interpretation Comments SODIUM (test code = NA) 139 mmol/L 136-145 N POTASSIUM (test code = K) 2.5 mmol/L 3.5-5.1 Re sults called to [facility] [address] by IVANA 12/08/18 0713Critical results verified and [...] code = CA) 7.4 mg/dL 8.5-10.1 L [id number] 07:14:00* Test Item Value Reference Range Interpretation Comments PHOSPHORUS (test code = PHOS) 2.1 mg/dL 2.5-4.9 L [id number] 07:14:00* Test Item Value Reference Range Interpretation Comments MAGNESIUM (test code = MAG) 1.5 mg/dL 1.8-2.4 L CALCIUM [id number] 07:14:00* Test Item Value Reference Range Interpretation Comments CALCIUM IONIZED (test code = ERICH) 1.15 mmol/L 1.12-1.32 N CBC W/MANUAL [id number] 06:58:00* Test Item Value Reference Range Interpretation Comments WHITE BLOOD CELL (test code = WBC) 11.8 K/mm3 4.5-12.5 N RED BLOOD CELL (test code = RBC) 2.50 mill/mm3 3.7-5.2 L HEMOGLOBIN (test code = HGB) 7.2 gram/dL 11.5-15.5 L HEMATOCRIT (test code = HCT) 21.6 % 36.0-46.0 LL Results called to [id number] by ARMAND 12/08/18 0656Critical results verified and [...] MORPHOLOGY (test code = PLTMORPH) CBC W/MANUAL [id number] 06:58:00* Test Item Value Reference Range Interpretation Comments WHITE BLOOD CELL (test code = WBC) 11.8 K/mm3 4.5-12.5 N RED BLOOD CELL (test code = RBC) 2.50 mill/mm3 3.7-5.2 L HEMOGLOBIN (test code = HGB) 7.2 gram/dL 11.5-15.5 L HEMATOCRIT (test code = HCT) 21.6 % 36.0-46.0 LL Results called to [id number] by ARMAND 12/08/18 0656Critical results verified and [...] MORPHOLOGY (test code = PLTMORPH) CBC W/MANUAL [id number] 06:58:00* Test Item Value Reference Range Interpretation Comments WHITE BLOOD CELL (test code = WBC) 11.8 K/mm3 4.5-12.5 N RED BLOOD CELL (test code = RBC) 2.50 mill/mm3 3.7-5.2 L HEMOGLOBIN (test code = HGB) 7.2 gram/dL 11.5-15.5 L HEMATOCRIT (test code = HCT) 21.6 % 36.0-46.0 Results called to [id number] by ARMAND 12/08/18 0656Critical results verified and [...] MORPHOLOGY (test code = PLTMORPH) CBC W/MANUAL [id number] 06:58:00* Test Item Value Reference Range Interpretation Comments WHITE BLOOD CELL (test code = WBC) 11.8 K/mm3 4.5-12.5 N RED BLOOD CELL (test code = RBC) 2.50 mill/mm3 3.7-5.2 L HEMOGLOBIN (test code = HGB) 7.2 gram/dL 11.5-15.5 L HEMATOCRIT (test code = HCT) 21.6 % 36.0-46.0 LL Results called to [id number] by ARMAND 12/08/18 0656Critical results verified and [...] MORPHOLOGY (test code = PLTMORPH) CBC W/MANUAL [id number] 06:58:00* Test Item Value Reference Range Interpretation Comments WHITE BLOOD CELL (test code = WBC) 11.8 K/mm3 4.5-12.5 N RED BLOOD CELL (test code = RBC) 2.50 mill/mm3 3.7-5.2 L HEMOGLOBIN (test code = HGB) 7.2 gram/dL 11.5-15.5 L HEMATOCRIT (test code = HCT) 21.6 % 36.0-46.0 LL Results called to [id number] by ARMAND 12/08/18 0656Critical results verified and [...] MORPHOLOGY (test code = PLTMORPH) BASIC METABOLIC [id number] 06:31:00* Test Item Value Reference Range Interpretation [...] CALCIUM (test code = CA) mg/dL 8.5-10.1 [id number] 06:31:00* Test Item Value Reference Range Interpretation Comments PHOSPHORUS (test code = PHOS) mg/dL 2.5-4.9 [id number] 06:31:00* Test Item Value Reference Range Interpretation Comments MAGNESIUM (test code = MAG) mg/dL 1.8-2.4 CALCIUM [id number] 06:31:00* Test Item Value Reference Range Interpretation Comments CALCIUM IONIZED (test code = ERICH) 1.15 mmol/L 1.12-1.32 N LACTIC [id number] 22:14:00* Test Item Value Reference Range Interpretation Comments LACTIC ACID (test code = LACT) 1.9 mmol/L 0.4-1.9 N LACTIC [id number] 18:13:00* Test Item Value Reference Range Interpretation Comments LACTIC ACID (test code = LACT) 2.1 mmol/L 0.4-1.9 Results called to [id number] by 12/07/18 1813Critical results verified and read back by Nurse? Y THYROID STIMULATING [id number] 16:34:00* Test Item Value Reference Range Interpretation Comments THYROID STIMULATING HORMONE (test code = TSH) 3.340 uIU/mL 0.36-3.7 4 N TSH REFERENCE RANGES: EUTHYROID: 0.35 - 4.3 mIU/mL HYPO : > 5.5 mIU/mL HYPER : < 0.35 mIU/mL - XR CHEST 1 [id number] 16:26:00 FAX: Ilan Holt MD [place]: St: DIS FAX: Charo Iraheta MD [phone] Name: MOJGAN CUMMINGS [facility] : 1950 Age/S: 68/F [address] [facility] Unit #: [id number] Loc: [place] [address] Phys: Charo Iraheta MD Acct: [id number] Dis Date: Status: DIS IN PHONE #: [phone] Exam Date: 12/07/2018 1505 FAX #: [phone] Reason: POST CENTRAL LINE PLACEMENT EXAMS: CPT CODE: [id number] XR CHEST 1 V 62658 EXAM: Chest x-ray, one view; INFORMATION: Sepsis; status post line placement; IMPRESSION: 1. Well-positioned right subclavian central line; its tip is at the SVC/right atrial junction. 2. No evidence of pneumothorax and 3. No further changes; advanced osteoarthritis of both shoulder joints. E lectronically Signed by Crispin Gates on 11/18 at 0210 Reported and signed by: Kimmie Gates M.D. CC: Ilan Stein; Charo Iraheta MD Technologist: Nida ALEXANDRA(R); Maria Guadalupe Gonzalez (R) Trnscrd Date/Time/By: 12/07/2018 (1626) : By: HarryGRW O rig Print D/T: S: 12/07/2018 (7385) PAGE 1 Signed Report - XR CHEST 1 [id number] 16:26:00 FAX: Ilan Holt MD [place]: St: ADM FAX: Charo Iraheta MD [phone] Name: MOJGAN CUMMINGS [facility] : 1950 Age/S: 68/F [address] [facility] Unit #: [id number] Loc: [address] [place] [address] Phys: Charo Iraheta MD Acct: [id number] Dis Date: Status: ADM IN PHONE #: [phone] Exam Date: 12/07/2018 1505 FAX #: [phone] Reason: POST CENTRAL LINE PLACEMENT EXAMS: CPT CODE: [id number] XR CHEST 1 V 52962 EXAM: Chest x-ray, one view; INFORMATION: Sepsis; status post line placement; IMPRESSION: 1. Well-positioned right subclavian central line; its tip is at the SVC/right atrial junction. 2. No evidence of pneumothorax and 3. No further changes; advanced osteoarthritis of both shoulder joints. E lectronically Signed by Crispin Gates on 11/18 at 8017 Reported and signed by: Kimmie Gates M.D. CC: Ilan Stein; Charo Iraheta MD Technologist: Nida ALEXANDRA(R); Maria Guadalupe Gonzalez (R) Trnmird Date/Time/By: 12/07/2018 (8019) : By: Omar O rig Print D/T: S: 12/07/2018 (1058) PAGE 1 Signed Report - XR CHEST 1 [id number] 16:26:00 FAX: Ilan Holt MD [place]: St: DIS FAX: Charo Iraheta MD [phone] Name: MOJGAN CUMMINGS [facility] : 1950 Age/S: 68/F [address] [facility] Unit #: [id number] Loc: [facility] [place] [address] Phys: Charo Iraheta MD Acct: [id number] Dis Date: Status: DIS IN PHONE #: [phone] Exam Date: 12/07/2018 1505 FAX #: [phone] Reason: POST CENTRAL LINE PLACEMENT EXAMS: CPT CODE: [id number] XR CHEST 1 V 69958 EXAM: Chest x-ray, one view; INFORMATION: Sepsis; status post line placement; IMPRESSION: 1. Well-positioned right subclavian central line; its tip is at the SVC/right atrial junction. 2. No evidence of pneumothorax and 3. No further changes; advanced osteoarthritis of both shoulder joints. E lectronically Signed by Crispin Gates on 11/18 at 4143 Reported and signed by: Kimmie Gates M.D. CC: Ilan Stein; Charo Iraheta MD Technologist: Nida ALEXANDRA(R); Maria Guadalupe Gonzalez (R) Trnscrd Date/Time/By: 12/07/2018 (2779) : By: Omar O rig Print D/T: S: 12/07/2018 (5561) PAGE 1 Signed Report LACTIC [id number] 14:35:00* Test Item Value Reference Range Interpretation Comments LACTIC ACID (test code = LACT) 2.2 mmol/L 0.4-1.9 Results called to [id number] by LAI 12/07/18 1434Critical results verified and read back by Nurse? Y CBC W/MANUAL [id number] 09:38:00* Test Item Value Reference Range Interpretation Comments WHITE BLOOD CELL (test code = WBC) 11.5 K/mm3 4.5-12.5 N RED BLOOD CELL (test code = RBC) 2.41 mill/mm3 3.7-5.2 L HEMOGLOBIN (test code = HGB) 6.8 gram/dL 11.5-15.5 L HEMATOCRIT (test code = HCT) 21.6 % 36.0-46.0 LL Results called to PRL2730 by V.[facility].ESTELLAB 12/07/18 0738Critical results verified and read back [...] FORMS (test code = IMMAT) 0 % [id number] 08:07:00* Test Item Value Reference Range Interpretation Comments TROPONIN-I (test code = TROPI) 0.351 ng/mL 0-0.045 HH Results called to TAPAN CHOU7454by V.LAB.OA 12/07/18 0807Critical results verified and read back by Nurse? Y BASIC METABOLIC [id number] 07:45:00* Test Item Value Reference Range Interpretation [...] code = CA) 7.3 mg/dL 8.5-10.1 L [id number] 07:45:00* Test Item Value Reference Range Interpretation Comments PHOSPHORUS (test code = PHOS) 2.6 mg/dL 2.5-4.9 N [id number] 07:45:00* Test Item Value Reference Range Interpretation Comments MAGNESIUM (test code = MAG) 2.2 mg/dL 1.8-2.4 N CALCIUM [id number] 07:45:00* Test Item Value Reference Range Interpretation Comments CALCIUM IONIZED (test code = ERICH) 1.16 mmol/L 1.12-1.32 N CBC W/MANUAL [id number] 07:38:00* Test Item Value Reference Range Interpretation Comments WHITE BLOOD CELL (test code = WBC) 11.5 K/mm3 4.5-12.5 N RED BLOOD CELL (test code = RBC) 2.41 mill/mm3 3.7-5.2 L HEMOGLOBIN (test code = HGB) 6.8 gram/dL 11.5-15.5 L HEMATOCRIT (test code = HCT) 21.6 % 36.0-46.0 Results called to TWJ9456 by V.LAB.ESTELLAB 12/07/18 0738Critical results verified and read back [...] MORPHOLOGY (test code = PLTMORPH) CBC W/MANUAL [id number] 07:38:00* Test Item Value Reference Range Interpretation Comments WHITE BLOOD CELL (test code = WBC) 11.5 K/mm3 4.5-12.5 N RED BLOOD CELL (test code = RBC) 2.41 mill/mm3 3.7-5.2 L HEMOGLOBIN (test code = HGB) 6.8 gram/dL 11.5-15.5 L HEMATOCRIT (test code = HCT) 21.6 % 36.0-46.0 Results called to [id number] by ARMAND 12/07/18 0738Critical results verified and [...] MORPHOLOGY (test code = PLTMORPH) CBC W/MANUAL [id number] 07:38:00* Test Item Value Reference Range Interpretation Comments WHITE BLOOD CELL (test code = WBC) 11.5 K/mm3 4.5-12.5 N RED BLOOD CELL (test code = RBC) 2.41 mill/mm3 3.7-5.2 L HEMOGLOBIN (test code = HGB) 6.8 gram/dL 11.5-15.5 L HEMATOCRIT (test code = HCT) 21.6 % 36.0-46.0 LL Results called to KBG1239 by VKSENIA.KENNEY 12/07/18 0738Critical results verified and read back [...] MORPHOLOGY (test code = PLTMORPH) CBC W/MANUAL [id number] 07:38:00* Test Item Value Reference Range Interpretation Comments WHITE BLOOD CELL (test code = WBC) 11.5 K/mm3 4.5-12.5 N RED BLOOD CELL (test code = RBC) 2.41 mill/mm3 3.7-5.2 L HEMOGLOBIN (test code = HGB) 6.8 gram/dL 11.5-15.5 L HEMATOCRIT (test code = HCT) 21.6 % 36.0-46.0 LL Results called to MKT2599 by DELMA.KENNEY 12/07/18 0738Critical results verified and read back [...] MORPHOLOGY (test code = PLTMORPH) CBC W/MANUAL [id number] 07:38:00* Test Item Value Reference Range Interpretation Comments WHITE BLOOD CELL (test code = WBC) 11.5 K/mm3 4.5-12.5 N RED BLOOD CELL (test code = RBC) 2.41 mill/mm3 3.7-5.2 L HEMOGLOBIN (test code = HGB) 6.8 gram/dL 11.5-15.5 L HEMATOCRIT (test code = HCT) 21.6 % 36.0-46.0 LL Results called to [id number] by ARMAND 12/07/18 0738Critical results verified and [...] MORPHOLOGY (test code = PLTMORPH) BASIC METABOLIC [id number] 07:32:00* Test Item Value Reference Range Interpretation [...] CALCIUM (test code = CA) mg/dL 8.5-10.1 [id number] 07:32:00* Test Item Value Reference Range Interpretation Comments PHOSPHORUS (test code = PHOS) mg/dL 2.5-4.9 [id number] 07:32:00* Test Item Value Reference Range Interpretation Comments MAGNESIUM (test code = MAG) mg/dL 1.8-2.4 CALCIUM [id number] 07:32:00* Test Item Value Reference Range Interpretation Comments CALCIUM IONIZED (test code = ERICH) 1.16 mmol/L 1.12-1.32 N - XR ABDOMEN AP 1 [id number] 07:19:00 FAX: Ilan Holt MD [place]: St: DIS FAX: Bobby Meng SHOT DROPPER [phone] Name: ZOILAMOJGAN MOLINA [facility] : 1950 Age/S: 68/F [address] [facility] Unit #: [id number] Loc: [place] [address] Phys: Bobby Roberts SHOT DROPPER Acct: [id number] Dis Date: Status: DIS IN PHONE #: [phone] Exam Date: 12/07/2018 0656 FAX #: [phone] Reason: Ileus? EXAMS: CPT CODE: [id number] XR ABDOMEN AP 1 V 13603 REASON FOR EXAM: Ileus?, GI BLEED, PEG [...] Stein; Bobby Roberts NP Technologist: Sachi Mo) Trnscrd Date/Time/By: 12/07/2018 (718) : By: Rodrigo Orig Print D/T: S: 12/07/2018 (1218) PAGE 1 Signed Report - XR ABDOMEN AP 1 [id number] 07:19:00 FAX: Ilan Holt MD [place]: St: ADM FAX: Bobby Meng NP [phone] Name: MOJGAN CUMMINGS [facility] : 1950 Age/S: 68/F [address] [facility] Unit #: [id number] Loc: [address] [place] [address] Phys: Bobby Roberts SHOT DROPPER Acct: [id number] Dis Date: Status: ADM IN PHONE #: [phone] Exam Date: 12/07/2018655 FAX #: [phone] Reason: Ileus? EXAMS: CPT CODE: [id number] XR ABDOMEN AP 1 V 49271 REASON FOR EXAM: Ileus?, GI BLEED, PEG [...] ogist: Sachi Gonzalez(Ivan) Trnscrd Date/Time/ By: 12/07/2018 (07) : By: Rodrigo Orig Print D/T: S: 12/07/2018 (0 387) PAGE 1 Signed Report - XR ABDOMEN AP 1 [id number] 07:19:00 FAX: Ilan Holt MD [place]: St: DIS FAX: Bobby Meng NP [phone] Name: MOJGAN CUMMINGS [facility] : 1950 Age/S: 68/F [address] [facility] Unit #: [id number] Loc: [place] [address] Phys: Bobby Roberts SHOT DROPPER Acct: [id number] Dis Date: Status: DIS IN PHONE #: [phone] Exam Date: 12/07/2018 0656 FAX #: [phone] Reason: Ileus? EXAMS: CPT CODE: [id number] XR ABDOMEN AP 1 V 85093 REASON FOR EXAM: Ileus?, GI BLEED, PEG [...] Stein; Bobby Roberts NP Technol ogist: Sachi Goznalez(Ivan) Trnscrd Date/Time/ By: 12/07/2018 (0719) : By: HarryVTL Orig Print D/T: S: 12/07/2018 (0 722) PAGE 1 Signed Report - XR CHEST 1 [id number] 06:18:00 FAX: Ilan Holt MD [place]: St: DIS FAX: Charo Iraheta MD [phone] Name: MOJGAN CUMMINGS [facility] : 1950 Age/S: 68/F [address] [facility] Unit #: [id number] Loc: [place] [address] Phys: Charo Iraheta MD Acct: [id number] Dis Date: Status: DIS IN PHONE #: [phone] Exam Date: 12/07/2018 05 FAX #: [phone] Reason: sob EXAMS: CPT CODE: [id number] XR CHEST 1 V 61289 REASON FOR EXAM: sob, GI BLEED, PEG [...] JR; [facility] Darling Trnscrd Date/Time/By: 12/07/2018 (617) : By : GordoL Orig Print D/T: S: 12/07/2018 (0077) PAGE 1 Signed Report - XR CHEST 1 [id number] 06:18:00 FAX: Ilan Holt MD [place]: St: [facility] FAX: Charo Iraheta MD [phone] Name: MOJGAN CUMMINGS [facility] : 1950 Age/S: 68/F [address] [facility] Unit #: [id number] Loc: [address] [place] [address] Phys: Charo Iraheta MD Acct: [id number] Dis Date: Status: ADM IN PHONE #: [phone] Exam Date: 12/07/2018518 FAX #: [phone] Reason: sob EXAMS: CPT CODE: [id number] XR CHEST 1 V 96080 REASON FOR EXAM: sob, GI BLEED, PEG [...] Brayan Toro M.D. CC: Ilan Stein; Charo rIaheta MD Technologist: OCTAVIO Darling Trnscrd Date/Time/By: 12/07/2018 (617) : By: GordoL Orig Print D/T: S: 12/07/2018 (0694) PAGE 1 Signed Report - XR CHEST 1 [id number] 06:18:00 FAX: Ilan Holt MD [place]: St: DIS FAX: Charo Iraheta MD [phone] Name: MOJGAN CUMMINGS [facility] : 1950 Age/S: 68[facility]F [address] [facility] Unit [facility]: [id number] Loc: [place] [address] Phys: Charo Iraheta MD Acct: [id number] Dis Date: Status: DIS IN PHONE #: [phone] Exam Date: 12/07/2018518 FAX #: [phone] Reason: sob EXAMS: CPT CODE: [id number] XR CHEST 1 V 65572 REASON FOR EXAM: sob, GI BLEED, PEG [...] Darling Trnscrd Date/Time/By: 12/07/2018 (617) : By: Rodrigo Orig Print D/T: S: 12/07/2018 (0693) PAGE 1 Signed Report LACTIC [id number] 19:19:00* Test Item Value Reference Range Interpretation Comments LACTIC ACID (test code = LACT) 4.0 mmol/L 0.4-1.9 HH Results called to [id number] by V.[email or web address].HP 12/06/18 1918Critical results verified and read back by Nurse? Y LACTIC [id number] 15:54:00* Test Item Value Reference Range Interpretation Comments LACTIC ACID (test code = LACT) 4.0 mmol/L 0.4-1.9 HH Results called to [id number] by V.[email or web address].KN 12/06/18 1553Critical results verified and read back by Nurse? Y LACTIC [id number] 11:37:00* Test Item Value Reference Range Interpretation Comments LACTIC ACID (test code = LACT) 4.2 mmol/L 0.4-1.9 HH Results called to [id number] V.LAB.KN 12/06/18 1137Critical results verified and read back by Nurse? Y - XR ABDOMEN AP 1 [id number] 11:00:00 FAX: Ilan Holt MD [place]: B St: DIS FAX: Charo Iraheta MD [phone] Name: MOJGAN CUMMIGNS [facility] : 1950 Age/S: 68/F [address] [facility] Unit #: [id number] Loc: [place] [address] Phys: Charo Iraheta MD Acct: [id number] Dis Date: Status: DIS IN PHONE #: [phone] Exam Date: 12/06/2018 1038 FAX #: [phone] Reason: DISTENDED ABD EXAMS: CPT CODE: [id number] XR ABDOMEN AP 1 V 31900 HISTORY: Distended abdomen. COMPARISON: Same day. Gastrostomy [...] Technologist: JERAMIE LOPEZ RT(R); Nida Gunn RT(R) Trnmird Date/Time/By: 12/06/2018 (1100) : By: [email or web address] Orig Print D/T: S: 12/06/2018 (8906) PAGE 1 Signed Report - XR ABDOMEN AP 1 V 2018-12-06 11:00:00 FAX: Ilan Holt MD [place]: St: [facility] FAX: Charo Iraheta MD [phone] Name: MOJGAN CUMMINGS [facility] : 1950 Age/S: 68/F [address] Unit #: [id number] Loc: [address] [place] [address] Phys: Charo Iraheta MD Acct: [id number] Dis Date: Status: ADM IN PHONE #: [phone] Exam Date: 12/06/2018 1038 FAX #: [phone] Reason: DISTENDED ABD EXAMS: CPT CODE: [id number] XR ABDOMEN AP 1 V 93894 HISTORY: Distended abdomen. COMPARISON: Same day. Gastrostomy [...] Technologist: JERAMIE LOPEZ RT(R); Nida Gunn RT(R) [facility] Date/Time/By: 12/06/2018 (1100) : By: [email or web address] Orig Print D/T: S: 12/06/2018 (5736) PAGE 1 Signed Report - XR ABDOMEN AP 1 V 2018-12-06 11:00:00 FAX: Ilan Holt MD [place]: B St: DIS FAX: Charo Iraheta MD [phone] Name: MOJGAN CUMMINGS [facility] : 1950 Age/S: 68/F [address] Unit #: [id number] Loc: [place] [address] Phys: Charo Iraheta MD Acct: [id number] Dis Date: Status: DIS IN PHONE #: [phone] Exam Date: 12/06/2018 1038 FAX #: [phone] Reason: DISTENDED ABD EXAMS: CPT CODE: [id number] XR ABDOMEN AP 1 V 65211 HISTORY: Distended abdomen. COMPARISON: Same day. Gastrostomy [...] By: [email or web address] Orig Print D/T: S: 12/06/2018 (9642) PAGE 1 Signed Report - XR ABDOMEN AP 1 V 2018-12-06 06:33:00 FAX: Ilan Holt MD [place]: B St: DIS FAX: Charo Iraheta MD [phone] Name: MOJGAN CUMMINGS [facility] : 1950 Age/S: 68/F [address] Unit #: [id number] Loc: [place] [address] Phys: Charo Iraheta MD Acct: [id number] Dis Date: Status: DIS IN PHONE #: [phone] Exam Date: 12/06/2018 05 FAX #: [phone] Reason: FOLLOW UP ON PREVIOUS DAYS FINDINGS EXAMS: CPT CODE: [id number] XR ABDOMEN AP 1 V 08394 REASON FOR EXAM: FOLLOW UP ON PREVIOUS [...] Signed Report - XR ABDOMEN AP 1 [id number] 06:33:00 FAX: Ilan Holt MD [place]: B St: [facility] FAX: Charo Iraheta MD [phone] Name: MOJGAN CUMMINGS [facility] : 1950 Age/S: 68/F [address] [facility] Unit #: [id number] Loc: [address] [address] Phys: Charo Iraheta MD Acct: [id number] Dis Date: Status: ADM IN PHONE #: [phone] Exam Date: 12/06/2018520 FAX #: [phone] Reason: FOLLOW UP ON PREVIOUS DAYS FINDINGS EXAMS: CPT CODE: [id number] XR ABDOMEN AP 1 V 31986 REASON FOR EXAM: FOLLOW UP ON PREVIOUS [...] By: HarryVTL Orig Print D/T: S: 12/06/2018 (0666) PAGE 1 Signed Report - XR ABDOMEN AP 1 [id number] 06:33:00 FAX: Ilan Holt MD [place]: B St: DIS FAX: Charo Iraheta MD [phone] Name: MOJGAN CUMMINGS [facility] : 1950 Age/S: 68/F [address] [facility] Unit #: [id number] Loc: [place] [address] Phys: Charo Iraheta MD Acct: [id number] Dis Date: Status: DIS IN PHONE #: [phone] Exam Date: 12/06/2018520 FAX #: [phone] Reason: FOLLOW UP ON PREVIOUS DAYS FINDINGS EXAMS: CPT CODE: [id number] XR ABDOMEN AP 1 V 61331 REASON FOR EXAM: FOLLOW UP ON PREVIOUS [...] MD Technologist: OCTAVIO Darling Trnscrd Date/Time/By: 12/06/2018 (632 ) : By: HarryVTL Orig Print D/T: S: 12/06/2018 (0636) PAGE 1 Signed Report - XR CHEST 1 [id number] 06:32:00 FAX: Ilan Holt MD [place]: B St: DIS FAX: Charo Iraheta MD [phone] Name: MOJGAN CUMMINGS [facility] : 1950 Age/S: 68/F [address] [facility] Unit #: [id number] Loc: [place] [address] Phys: Charo Iraheta MD Acct: [id number] Dis Date: Status: DIS IN PHONE #: [phone] Exam Date: 12/06/2018520 FAX #: [phone] Reason: sob EXAMS: CPT CODE: [id number] XR CHEST 1 V 09679 REASON FOR EXAM: sob EXAM ORDER DATE: [...] By: [email or web address] Orig Print D/T: S: 12/06/2018 (0617) PAGE 1 Signed Report - XR CHEST 1 [id number] 06:32:00 FAX: Ilna Holt MD [place]: St: ADM FAX: Charo Iraheta MD [phone] Name: MOJGAN CUMMINGS [facility] : 1950 Age/S: 68/F [address] [facility] Unit #: [id number] Loc: [address] [address] Phys: Charo Iraheta MD Acct: [id number] Dis Date: Status: ADM IN PHONE #: [phone] Exam Date: 12/06/2018520 FAX #: [phone] Reason: sob EXAMS: CPT CODE: [id number] XR CHEST 1 V 01488 REASON FOR EXAM: sob EXAM ORDER DATE: [...] By: [email or web address] Orig Print D/T: S: 12/07/19 (0680) PAGE 1 Signed Report - XR CHEST 1 [id number] 06:32:00 FAX: Ilan Holt MD [place]: St: DIS FAX: Charo Iraheta MD [phone] Name: MOJGAN CUMMINGS [facility] : 1950 Age/S: 68/F [address] [facility] Unit #: [id number] Loc: [place] [address] Phys: Charo Iraheta MD Acct: [id number] Dis Date: Status: DIS IN PHONE #: [phone] Exam Date: 12/06/2018520 FAX #: [phone] Reason: sob EXAMS: CPT CODE: [id number] XR CHEST 1 V 42018 REASON FOR EXAM: sob EXAM ORDER DATE: [...] Trnscrd Date/ Time/By: 12/06/2018 (0632) : By: GordoL Orig Print D/T: S: 12/07/19 19 (0604) PAGE 1 Signed Report CBC W/MANUAL [id number] 06:22:00* Test Item Value Reference Range Interpretation [...] code = IMMAT) 0 % BASIC METABOLIC [id number] 06:04:00* Test Item Value Reference Range Interpretation [...] code = CA) 6.7 mg/dL 8.5-10.1 L [id number] 06:04:00* Test Item Value Reference Range Interpretation Comments PHOSPHORUS (test code = PHOS) 2.1 mg/dL 2.5-4.9 L [id number] 06:04:00* Test Item Value Reference Range Interpretation Comments MAGNESIUM (test code = MAG) 1.2 mg/dL 1.8-2.4 L [id number] 06:04:00* Test Item Value Reference Range Interpretation Comments TROPONIN-I (test code = TROPI) 0.100 ng/mL 0-0.045 Results called to [id number] by [email or web address] 12/06/18 0603Critical results verified and read back by Nurse? Y CBC W/MANUAL [id number] 05:38:00* Test Item Value Reference Range Interpretation [...] MORPHOLOGY (test code = PLTMORPH) CBC W/MANUAL [id number] 05:38:00* Test Item Value Reference Range Interpretation [...] MORPHOLOGY (test code = PLTMORPH) CBC W/MANUAL [id number] 05:38:00* Test Item Value Reference Range Interpretation [...] MORPHOLOGY (test code = PLTMORPH) CBC W/MANUAL [id number] 05:37:00* Test Item Value Reference Range Interpretation [...] MORPHOLOGY (test code = PLTMORPH) CBC W/MANUAL [id number] 05:37:00* Test Item Value Reference Range Interpretation [...] PLATELET MORPHOLOGY (test code = PLTMORPH) GENTAMYCIN [id number] 20:40:00* Test Item Value Reference Range Interpretation Comments GENTAMYCIN PEAK (test code = GENTP) 6.3 ug/mL 5.0-10.0 N [id number] 11:32:00* Test Item Value Reference Range Interpretation Comments TROPONIN-I (test code = TROPI) <0.015 ng/mL 0-0.045 N SPECIMEN COMMENTS: FOR SPECIMEN ISSUES CALL RN [id number]- XR ABDOMEN AP 1 V 2018-12-05 08:57:00 FAX: Ilan Holt MD [place]: B St: DIS FAX: Charo Iraheta MD [phone] Name: MOJGAN CUMMINGS [facility] : 1950 Age/S: 68/F [address] [facility]: [id number] Loc: [place] [address] Phys: Charo Iraheta MD Acct: [id number] Dis Date: Status: DIS IN PHONE #: [phone] Exam Date: 12/05/2018 0809 FAX #: [phone] Reason: stomach distension EXAMS: CPT CODE: [id number] XR ABDOMEN AP 1 V 75364 HISTORY: Stomach distention. COMPARISON: CT abdomen and [...] By: [email or web address] Orig Print D/T: S: 12/05/2018 (0901) PAGE 1 Signed Report - XR ABDOMEN AP 1 [id number] 08:57:00 FAX: Ilan Holt MD [place]: St: [facility] FAX: Charo Iraheta MD [phone] Name: MOJGAN CUMMINGS [facility] : 1950 Age/S: 68/F [address] Unit #: [id number] Loc: [address] [place] [address] Phys: Charo Iraheta MD Acct: [id number] Dis Date: Status: ADM IN PHONE #: [phone] Exam Date: 12/05/2018 0809 FAX #: [phone] Reason: stomach distension EXAMS: CPT CODE: [id number] XR ABDOMEN AP 1 V 33775 HISTORY: Stomach distention. COMPARISON: CT abdomen and [...] By: [email or web address] Orig Print D/T: S: 12/05/2018 (0901) PAGE 1 Signed Report - XR ABDOMEN AP 1 [id number] 08:57:00 FAX: Ilan Holt MD [place]: B St: DIS FAX: Charo Iraheta MD [phone] Name: MOJGAN CUMMINGS [facility] : 1950 Age/S: 68/F [address] [facility] Unit #: [id number] Loc: [place] [address] Phys: Charo Iraheta MD Acct: [id number] Dis Date: Status: DIS IN PHONE #: [phone] Exam Date: 12/05/2018 0809 FAX #: [phone] Reason: stomach distension EXAMS: CPT CODE: [id number] XR ABDOMEN AP 1 V 15523 HISTORY: Stomach distention. COMPARISON: CT abdomen and [...] By: [email or web address] Orig Print D/T: S: 12/05/2018 (2676) PAGE 1 Signed Report - XR CHEST 1 [id number] 06:44:00 FAX: Ilan Holt MD [place]: B St: DIS FAX: Ashley Juarez NP [phone] Name: MOJGAN CUMMINGS [facility] : 1950 Age/S: 68/F [address] [facility] Unit #: [id number] Loc: [place] [address] Phys: Ashley Hendrix NP Acct: [id number] Dis Date: Status: DIS IN PHONE #: [phone] Exam Date: 12/05/2018526 FAX #: [phone] Reason: respiratory failure, aspiration EXAMS: CPT CODE: [id number] XR CHEST 1 V 24526 REASON FOR EXAM: respiratory failure, aspiration EXAM [...] stomach. Recommend correlation with abdominal x-ray at 0672 Reported and signed by: Brayan Toro M.D. CC: Ilan Stein; Ashley Hendrix NP Technologist: OCTAVIO Darling Trnscrd Date/Time/By: 12/05/2018 (0644) : By: GordoL Orig Print D/T: S: 12/05/2018 (0656) PAGE 1 Signed Report - XR CHEST 1 [id number] 06:44:00 FAX: Ilan Holt MD [place]: B St: ADM FAX: Ashley Juarez NP [phone] Name: MOJGAN CUMMINGS [facility] : 1950 Age/S: 68/F [address] [facility] Unit #: [id number] Loc: [address] [place] [address] Phys: Ashley Hendrix NP Acct: [id number] Dis Date: Status: ADM IN PHONE #: [phone] Exam Date: 12/05/2018526 FAX #: [phone] Reason: respiratory failure, aspiration EXAMS: CPT CODE: [id number] XR CHEST 1 V 36161 REASON FOR EXAM: respiratory failure, aspiration EXAM [...] stomach. Recommend correlation with abdominal x-ray at 0648 Reported and signed by: Brayan Toro M.D. CC: Ilan Stein; Ashley Hendrix NP Te chnologist: OCTAVIO VASQUEZ JR; Abigail Darling Trnscrd Date/ Time/By: 12/05/2018 (0644) : By: Rodrigo Orig Print D/T: S: 12/06/19 (0656) PAGE 1 Signed Report - XR CHEST 1 [id number] 06:44:00 FAX: Ilan Holt MD [place]: B St: DIS FAX: Ashley Juarez NP [phone] Name: MOJGAN CUMMINGS [facility] : 1950 Age/S: 68/F [address] [facility] Unit #: [id number] Loc: [place] [address] Phys: Ashley Hendrix NP Acct: [id number] Dis Date: Status: DIS IN PHONE #: [phone] Exam Date: 12/05/2018526 FAX #: [phone] Reason: respiratory failure, aspiration EXAMS: CPT CODE: [id number] XR CHEST 1 V 89435 REASON FOR EXAM: respiratory failure, aspiration EXAM [...] Stein; Ashley Hendrix NP Te chnologist: OCTAVIO VASQUEZ JR; Abigail Darling Trnscrd Date/ Time/By: 12/05/2018 (0644) : By: GordoL Orig Print D/T: S: 12/06/19 (0656) PAGE 1 Signed Report COMPREHENSIVE METABOLIC [id number] 06:08:00* Test Item Value Reference Range Interpretation [...] reference range due to change in reagent. [id number] 06:08:00* Test Item Value Reference Range Interpretation Comments PHOSPHORUS (test code = PHOS) 1.8 mg/dL 2.5-4.9 L [id number] 06:08:00* Test Item Value Reference Range Interpretation Comments MAGNESIUM (test code = MAG) 1.1 mg/dL 1.8-2.4 L CALCIUM [id number] 06:08:00* Test Item Value Reference Range Interpretation Comments CALCIUM IONIZED (test code = ERICH) 1.25 mmol/L 1.12-1.32 N ARTERIAL BLOOD [id number] 06:05:00* Test Item Value Reference Range Interpretation Comments ARTERIAL BLOOD GAS PH (test code = PHA) 7.48 7.35-7.45 H ARTERIAL BLOOD GAS PCO2 (test code = PCO2A) 24.2 mm Hg 35-45 LL Results called to and read back by [employer] - 12/05/2018; by Dilcia Hdz, TRACK EQUIPMENT OPERATOR ARTERIAL BLOOD GAS PO2 (test code = PO2A) 109.4 mmHg 80-100 H BICARBONATE TOTAL HCO3 (test code = HCO3) 17.7 mmol/L 23.0-27.0 L BASE EXCESS (test code = SHASHA) -4.9 mmol/L -3.0-5.0 LL Results called to and read back by [employer] - 12/05/2018; by Dilcia Hdz, TRACK EQUIPMENT OPERATOR ABG O2 SATURATION (test code = [...] Results called to and read back by [facility] : - 12/05/2018; by Dilcia Hdz, TRACK EQUIPMENT OPERATOR METHEMOGLOBIN (test code = METHGB) 0.6 % 0.0-1.50 N O2 CONTENT (test code = O2CT) 11.2 % vol 18.0-22.0 L ARTERIAL BLOOD [id number] 06:04:00* Test Item Value Reference Range Interpretation Comments ARTERIAL BLOOD GAS PH (test code = PHA) 7.55 7.35-7.45 H Results called to and read back by [employer] - 12/05/2018; by Dilcia Hdz, TRACK EQUIPMENT OPERATOR ARTERIAL BLOOD GAS PCO2 (test code = PCO2A) 24.8 mm Hg 35-45 LL Results called [facility] read [facility] - 12/05/2018; by Dilcia Hdz, TRACK EQUIPMENT OPERATOR ARTERIAL BLOOD GAS PO2 (test code [...] called to and read back by Renzo 06:03 - 12/05/2018; by Dilcia Hdz, DELROY METHEMOGLOBIN (test code = METHGB) 0.3 % 0.0-1.50 N O2 CONTENT (test code = O2CT) 16.8 % vol 18.0-22.0 L [id number] 06:02:00* Test Item Value Reference Range Interpretation Comments GENTAMICIN (test code = GENT) 3.0 mg/mL 4-8.0 L GENTAMICIN TOXIC LEVEL: >12 UG/ML COMPREHENSIVE METABOLIC [id number] 05:59:00* Test Item Value Reference Range Interpretation [...] TOTAL (test code = ALKP) IUnit/L 45-117 [id number] 05:59:00* Test Item Value Reference Range Interpretation Comments PHOSPHORUS (test code = PHOS) mg/dL 2.5-4.9 [id number] 05:59:00* Test Item Value Reference Range Interpretation Comments MAGNESIUM (test code = MAG) mg/dL 1.8-2.4 CALCIUM [id number] 05:59:00* Test Item Value Reference Range Interpretation Comments CALCIUM IONIZED (test code = ERICH) 1.25 mmol/L 1.12-1.32 N COMPREHENSIVE METABOLIC [id number] 05:51:00* Test Item Value Reference Range Interpretation [...] TOTAL (test code = ALKP) IUnit/L 45-117 [id number] 05:51:00* Test Item Value Reference Range Interpretation Comments PHOSPHORUS (test code = PHOS) mg/dL 2.5-4.9 [id number] 05:51:00* Test Item Value Reference Range Interpretation Comments MAGNESIUM (test code = MAG) mg/dL 1.8-2.4 CALCIUM [id number] 05:51:00* Test Item Value Reference Range Interpretation Comments CALCIUM IONIZED (test code = ERICH) 1.25 mmol/L 1.12-1.32 N CBC W/AUTO [id number] 05:48:00* Test Item Value Reference Range Interpretation [...] NRBC#) 0.02 K/mm3 0.0-0.1 N BASIC METABOLIC [id number] 23:07:00* Test Item Value Reference Range Interpretation [...] = CA) 7.8 mg/dL 8.5-10.1 L HGB [id number] 22:32:00* Test Item Value Reference Range Interpretation Comments HEMOGLOBIN (test code = HGB) 7.7 gram/dL 11.5-15.5 L HEMATOCRIT (test code = HCT) 24.6 % 36.0-46.0 L BASIC METABOLIC [id number] 19:06:00* Test Item Value Reference Range Interpretation [...] CA) 8.1 mg/dL 8.5-10.1 L CBC W/MANUAL [id number] 17:48:00* Test Item Value Reference Range Interpretation [...] code = IMMAT) 1.7 % CBC W/MANUAL [id number] 17:12:00* Test Item Value Reference Range Interpretation [...] MORPHOLOGY (test code = PLTMORPH) CBC W/MANUAL [id number] 17:12:00* Test Item Value Reference Range Interpretation [...] MORPHOLOGY (test code = PLTMORPH) CBC W/MANUAL [id number] 17:12:00* Test Item Value Reference Range Interpretation [...] MORPHOLOGY (test code = PLTMORPH) CBC W/MANUAL [id number] 17:12:00* Test Item Value Reference Range Interpretation [...] MORPHOLOGY (test code = PLTMORPH) CBC W/MANUAL [id number] 17:12:00* Test Item Value Reference Range Interpretation [...] PLTEST) PLATELET MORPHOLOGY (test code = PLTMORPH) [id number] 15:12:00* Test Item Value Reference Range Interpretation Comments GLUBED (test code = GLUBED) 144 mg/dL 74-106 H Performed by certified tunnel elastic operator lockstitch at [facility] [id number] 15:12:00* Test Item Value Reference Range Interpretation Comments GLUBED (test code = GLUBED) 88 mg/dL 74-106 N Performed by certified tunnel elastic operator lockstitch at [facility] BASIC METABOLIC [id number] 09:57:00* Test Item Value Reference Range Interpretation [...] collected at 0600 with q6 hour CBC [id number] 09:29:00* Test Item Value Reference Range Interpretation Comments HEMOGLOBIN (test code = HGB) 9.3 gram/dL 11.5-15.5 L - XR CHEST 1 [id number] 09:06:00 FAX: Ilan Holt MD [place]: B St: DIS FAX: Ashley Juarez NP [phone] Name: MOJGAN CUMMINGS [facility] : 1950 Age/S: 68/F [address] Unit #: [id number] Loc: [place] [address] Phys: Ashley Hendrix NP Acct: [id number] Dis Date: Status: DIS IN PHONE #: [phone] Exam Date: 12/04/2018 0847 FAX #: [phone] Reason: respiratory failure EXAMS: CPT CODE: [id number] XR CHEST 1 V 25776 HISTORY: Respiratory failure. COMPARISON: November 27, 2018. [...] By: [email or web address] Orig Print D/T: S: 12/04/2018 (10) PAGE 1 Signed Report - XR CHEST 1 [id number] 09:06:00 FAX: Ilan Holt MD [place]: B St: ADM FAX: Ashley Juarez NP [phone] Name: MOJGAN CUMMINGS [facility] : 1950 Age/S: 68/F [address] [facility] Unit #: [id number] Loc: [facility] [place] [address] Phys: Ashley Hendrix NP Acct: [id number] Dis Date: Status: ADM IN PHONE #: [phone] Exam Date: 12/04/2018 0847 FAX #: [phone] Reason: respiratory failure EXAMS: CPT CODE: [id number] XR CHEST 1 V 40682 HISTORY: Respiratory failure. COMPARISON: November 27, 2018. 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 COMPARISON: November 27, 2018. [...] TECHNOLOGIST Trnscrd Date/Time/By: 12/04/2018 (905) : By: [email or web address] Orig Print D/T: S: 12/04/2018 (6363) PAGE 1 Signed Report LACTIC [id number] 06:59:00* Test Item Value Reference Range Interpretation Comments LACTIC ACID (test code = LACT) 0.8 mmol/L 0.4-1.9 N ARTERIAL BLOOD [id number] 05:57:00* Test Item Value Reference Range Interpretation Comments ARTERIAL BLOOD GAS PH (test code = PHA) 7.45 7.35-7.45 N ARTERIAL BLOOD GAS PCO2 (test code = PCO2A) 25.0 mm Hg 35-45 L Results called to and read back by [employer] 05: - 12/04/2018; by Ac Hernandez, DELROY ARTERIAL BLOOD GAS PO2 (test code = PO2A) 196.4 mmHg 80-100 H BICARBONATE TOTAL HCO3 (test code = HCO3) 17.0 mmol/L 23.0-27.0 L BASE EXCESS (test code = SHASHA) -5.6 mmol/L -3.0-5.0 LL Results called to and read back by [employer] 05: - 12/04/2018; by Ac Hernandez, TRACK EQUIPMENT OPERATOR ABG O2 SATURATION (test code = [...] called to and read back by Renzo : - 12/04/2018; by Ac Hernandez, TRACK EQUIPMENT OPERATOR METHEMOGLOBIN (test code = METHGB) 0.6 % 0.0-1.50 N O2 CONTENT (test code = O2CT) 15.3 % vol 18.0-22.0 L A-A GRADIENT (test code = AAGRADE) 57.8 mm Hg LACTIC [id number] 02:49:00* Test Item Value Reference Range Interpretation Comments LACTIC ACID (test code = LACT) 2.4 mmol/L 0.4-1.9 HH Results called to [id number] by [email or web address] 12/04/18 0249Critical results verified and read back by Nurse? Y COMPREHENSIVE METABOLIC [id number] 02:49:00* Test Item Value Reference Range Interpretation [...] due to change in reagent. CBC W/MANUAL [id number] 02:26:00* Test Item Value Reference Range Interpretation [...] code = IMMAT) 1 % CBC W/MANUAL [id number] 02:12:00* Test Item Value Reference Range Interpretation [...] MORPHOLOGY (test code = PLTMORPH) CBC W/MANUAL [id number] 02:12:00* Test Item Value Reference Range Interpretation [...] MORPHOLOGY (test code = PLTMORPH) CBC W/MANUAL [id number] 02:12:00* Test Item Value Reference Range Interpretation [...] MORPHOLOGY (test code = PLTMORPH) CBC W/MANUAL [id number] 02:12:00* Test Item Value Reference Range Interpretation [...] MORPHOLOGY (test code = PLTMORPH) CBC W/MANUAL [id number] 02:12:00* Test Item Value Reference Range Interpretation [...] PROCAL) 309.85 ng/ml HH Results called to INV2263 by JOSEY 12/04/18 0137Critical results verified and [...] taking into account the patients history. HGB [id number] 00:25:00* Test Item Value Reference Range Interpretation Comments HEMOGLOBIN (test code = HGB) 8.7 gram/dL 11.5-15.5 L HEMATOCRIT (test code = HCT) 28.0 % 36.0-46.0 L [id number] 00:03:00* Test Item Value Reference Range Interpretation Comments POTASSIUM (test code = K) 5.2 mmol/L 3.5-5.1 H RE SULT VERIFIED BY REPEAT ANALYSIS ARTERIAL BLOOD [id number] 23:29:00* Test Item Value Reference Range Interpretation [...] O2CT) 15.6 % vol 18.0-22.0 L LACTIC [id number] 22:39:00* Test Item Value Reference Range Interpretation Comments LACTIC ACID (test code = LACT) 3.9 mmol/L 0.4-1.9 HH Results called to VFR7839 by V.LABFayeSZ 12/03/182237Critical results verified and read back by Nurse? Y LABEL ON PHLEABS DESK.[email or web address].QUR 12/03/18 192 [id number] 22:22:00* Test Item Value Reference Range Interpretation Comments GLUBED (test code = GLUBED) > 500 mg/dL 74-106 HH Performed by certified tunnel elastic operator [facility]~ PROTHROMBIN [id number] 22:11:00* Test Item Value Reference Range Interpretation [...] (2.5-3.5) IS PATIENT ON ANTICOAGULANTS? NTHROMBOPLASTIN TIME [id number] 22:11:00* Test Item Value Reference Range Interpretation Comments THROMBOPLASTIN TIME PARTIAL (test code = PTT) 40.3 seconds 25.0-36. 5 H IS PATIENT ON ANTICOAGULANTS? [id number] 22:02:00* Test Item Value Reference Range Interpretation Comments HEMOGLOBIN (test code = HGB) 9.4 gram/dL 11.5-15.5 L RESULT VERIFIED BY REPEAT ANALYSIS CHEMISTRY 8 [id number] 21:37:00* Test Item Value Reference Range Interpretation [...] GFRBED) 26 >6 0 LL CHEMISTRY 8 [id number] 21:37:00* Test Item Value Reference Range Interpretation [...] 0 LL - CT ABD PELVIS W/O [id number] 20:48:00 Name: MOJGAN CUMMINGS [facility] : 1950 Age/S: 68 / F [address] [facility] Unit #: [id number] Loc: [place] [address] Phys: Rikki Gomez MD Acct: [id number] Dis Date: Status: DIS IN PHONE #: [phone] Exam Date: 12/03/20182015 FAX #: [phone] Reason: bloody emesis EXAMS: CPT CODE: [id number] CT ABD PELVIS W/O CONT 96193 REASON FOR EXAM: bloody emesis EXAM ORDER [...] RT(R) CTDI: DLP: Trnscb Date/Time: 12/03/2018 (2047) [email or web address] Orig Print D/T: S: 12/03/2018 (2050) PAGE 1 Signed Report - CT ABD PELVIS W/O [id number] 20:48:00 Name: MOJGAN CUMMINGS [facility] : 1950 Age/S: 68 / F [address] [facility] Unit #: [id number] Loc: [place] [address] Phys: Rikki Gomez MD Acct: [id number] Dis Date: Status: ADM IN PHONE #: [phone] Exam Date: 12/03/20182015 FAX #: [phone] Reason: bloody emesis EXAMS: CPT CODE: [id number] CT ABD PELVIS W/O CONT 86163 REASON FOR EXAM: bloody emesis EXAM ORDER [...] Signed Report - CT ABD PELVIS W/O [id number] 20:48:00 Name: MOJGAN CUMMINGS [facility] : 1950 Age/S: 68 / F [address] Unit #: [id number] Loc: [place] [address] Phys: Julieta Gomez MD Acct: [id number] Di s Date: Status: DIS IN PHONE #: Exam Date: 12/03/20182015 FAX #: Reason: bloody emesis EXAMS: CPT CODE: [id number] CT ABD PELVIS W/O CONT 98563 REASON FOR EXAM: bloody emesis EXAM ORDER [...] CTDI: DLP: Trnscb Date/Time : 12/03/2018 (2047) [email or web address] Orig Print D/T: S: 12/04/19 (2050) PAGE 1 Signed Report LACTIC [id number] 19:19:00* Test Item Value Reference Range Interpretation Comments LACTIC ACID (test code = LACT) 2.7 mmol/L 0.4-1.9 HH Results called to [id number] by [email or web address] 12/03/18 1918Critical results verified and read back by Nurse? Y LACTIC [id number] 17:51:00* Test Item Value Reference Range Interpretation Comments LACTIC ACID (test code = LACT) 3.9 mmol/L 0.4-1.9 HH Results called to [id number] by [email or web address] 12/03/18 1750Critical results verified and read back by Nurse? Y BASIC METABOLIC [id number] 17:49:00* Test Item Value Reference Range Interpretation Comments SODIUM (test code = NA) 141 mmol/L 136-145 N POTASSIUM (test code = K) 7.1 mmol/L 3.5-5.1 HH Re sults called to [id number] by V.LAB.SZ 12/03/18 1746Critical results verified and [...] CA) 8.5 mg/dL 8.5-10.1 N HEPATIC FUNCTION [id number] 17:49:00* Test Item Value Reference Range Interpretation [...] reference range due to change in reagent. [id number] 17:49:00* Test Item Value Reference Range Interpretation Comments LIPASE (test code = LIP) 14 U/L 73.0-393.0 L HCG SERUM [id number] 17:49:00* Test Item Value Reference Range Interpretation Comments HCG SERUM QUAL (test code = HCGQL) NEGATIVE NEGATIVE This HCGQL test is NOT applicable for MALE patients.Check with nurse about probable order error.If Tumor Marker Test needed, nurse should order test "HCGTU"(Test #550.71912) [id number] 17:49:00* Test Item Value Reference Range Interpretation Comments TROPONIN-I (test code = TROPI) <0.015 ng/mL 0-0.045 N BASIC METABOLIC [id number] 17:46:00* Test Item Value Reference Range Interpretation [...] code = CA) mg/dL 8.5-10.1 HEPATIC FUNCTION [id number] 17:46:00* Test Item Value Reference Range Interpretation [...] TOTAL (test code = ALKP) IUnit/L 45-117 [id number] 17:46:00* Test Item Value Reference Range Interpretation Comments LIPASE (test code = LIP) U/L 73.0-393.0 HCG SERUM [id number] 17:46:00* Test Item Value Reference Range Interpretation Comments HCG SERUM QUAL (test code = HCGQL) NEGATIVE NEGATIVE This HCGQL test is NOT applicable for MALE patients.Check with nurse about probable order error.If Tumor Marker Test needed, nurse should order test "HCGTU"(Test #550.32576) [id number] 17:46:00* Test Item Value Reference Range Interpretation Comments TROPONIN-I (test code = TROPI) ng/mL 0-0.045 URINALYSIS [id number] 16:57:00* Test Item Value Reference Range Interpretation [...] #/LPF FEW Urine Source? Clean CatchCHEMISTRY 8 [id number] 16:48:00* Test Item Value Reference Range Interpretation [...] GFRBED) 26 >6 0 LL CHEMISTRY 8 [id number] 16:48:00* Test Item Value Reference Range Interpretation [...] = GFRBED) 26 >6 0 LL URINALYSIS [id number] 16:44:00* Test Item Value Reference Range Interpretation [...] HPF 0-5 Urine Source? Clean CatchCBC W/O [id number] 16:43:00* Test Item Value Reference Range Interpretation [...] NOT PERFORMED fL 6.7-11 .0 POC LACTIC [id number] 16:27:00* Test Item Value Reference Range Interpretation Comments POC LACTIC ACID (test code = POCLAC) 3.69 MMOL/L 0.4-2.2 H - XR CHEST 1 [id number] 13:18:00 FAX: Esau Weaver DO [place]: B St: DEP Name: Calixto LOWEMOJGAN MOLINA [facility] : [birth year] Age/S: 68/F [address] [facility]: [id number] Loc: [place] [address] Phys: Esau Weaver DO Acct: [id number] Dis Date: Status: DEP ER PHONE #: [phone] Exam Date: 11/27/2018 1245 FAX #: [phone] Reason: CHEST PAIN EXAMS: CPT CODE: [id number] XR CHEST 1 V 91567 HISTORY: Pain after fall. COMPARISON: Chest x-ray [...] Signed Report (CONTINUED) FAX: Esau Weaver DO [place]: St: DEP ---- Name: MOJGAN CUMMINGS [facility] : 1950 Age/S: 68/F [address] [facility] Unit #: [id number] Loc: [place] [address] Phys: Esau Weaver DO Acct: [id number] Dis Date: Status: DEP ER PHONE # : [phone] Exam Date: 11/27/2018 1245 FAX #: [phone] Reason: CHEST PAIN EXAMS : CPT CODE: [id number] XR CHES T 1 V 97746 <Continued> No acute fracture or dislocation of the right hip. DJD. at 1318 Reported and signed by: Clem Grissom M.D. CC: Esau Weaver DO Technologist: Eric ALEXANDRA(R) Trnscrd Date/Time/By: 11/27/2018 (1318) : By: [email or web address] Orig Print D/T: S: 11/27/2018 (6427) PAGE 2 Signed Report - XR PELVIS 09/20 [id number] 13:18:00 FAX: Esau Weaver DO [place]: St: DEP Name: MOJGAN SAUCEDO [facility] : [birth year] Age/S: 68/F [address] Unit #: [id number] Loc: [facility] [place] [address] Phys: Esau Weaver DO Acct: [id number] Dis Date: Status: DEP ER PHONE #: [phone] Exam Date: 11/27/2018 1245 FAX #: [phone] Reason: PELVIC PAIN EXAMS: CPT CODE: [id number] XR PELVIS 1/2 VIEWS 24978 HISTORY: Pain after fall. COMPARISON: Chest x-ray [...] Signed Report (CONTINUED) FAX: Esau Weaver DO [place]: B St: DEP ---- Name: MOJGAN CUMMINGS [facility] : 1950 Age/S: 68/F [address] Unit #: [id number] Loc: [place] [address] Phys: Esau Weaver DO Acct: [id number] Dis Date: Status: DEP ER PHONE # : [phone] Exam Date: 11/27/2018 1245 FAX #: Reason: PELVIC PAIN EXAMS : CPT CODE: [id number] XR PELV IS 1/2 VIEWS 30285 <Continued> No acute fracture or dislocation of the right hip. DJD. at 1318 Reported and signed by: Clem Grissom M.D. CC: Esau Weaver DO Technologist: Eric ALEXANDRA(R) Trnscrd Date/Time/By: 11/27/2018 (0359) : By: [email or web address] Orig Print D/T: S: 11/27/2018 (2829) PAGE 2 Signed Report - XR FEMUR MIN 2 S [id number] 13:18:00 FAX: Esau Weaver DO [place]: B St: DEP Name: Calixto CHRISSYMOJGAN [facility] : [birth year] Age/S: 68/F [address] Unit #: [id number] Loc: [place] [address] Phys: Esau Weaver DO Acct: [id number] Dis Date: Status: DEP ER PHONE #: [phone] Exam Date: 11/27/2018 1245 FAX #: [phone] Reason: THIGH PAIN EXAMS: CPT CODE: [id number] XR FEMUR MIN 2 [place] [address] HISTORY: Pain after fall. COMPARISON: Chest x-ray [...] Signed Report (CONTINUED) FAX: Esau Weaver DO [place]: B St: DEP ---- Name: MOJGAN CUMMINGS [facility] : 1950 Age/S: 68/F [address] [facility] Unit #: [id number] Loc: [place] [address] Phys: Esau Weaver Acct: [id number] Dis Date: Status: DEP ER PHONE # : [phone] Exam Date: 11/27/2018 1245 FAX #: [phone] Reason: THIGH PAIN EXAMS : CPT CODE: [id number] XR FEMU R MIN 2 [place] [address] <Continued> No acute fracture or dislocation of the right hip. DJD. at 1318 Reported and signed by: Clem Grissom M.D. CC: Esau Weaver DO Technologist: JERAMIE LOPEZ RT(R); Eric Chavez RT(R) [facility] Date/Time/By: 11/27/2018 (6108) : By: [email or web address] Orig Print D/T: S: 11/27/2018 (4229) PAGE 2 Signed Report - XR FEMUR MIN 2 VWS [id number] 13:18:00 FAX: Esau Weaver DO [place]: St: DEP Name: Calixto LOWEMOJGAN JESSE [facility] : [birth year] Age/S: 68/F [address] [facility] Unit #: [id number] Loc: [place] [address] Phys: Esau Weaver Calixto VENEGAS Acct: [id number] Dis Date: Status: DEP ER PHONE #: [phone] Exam Date: 11/27/2018 124 FAX #: [phone] Reason: THIGH PAIN EXAMS: CPT CODE: [id number] XR FEMUR MIN [address] [place] [address] HISTORY: Pain after fall. COMPARISON: Chest x-ray [...] Signed Report (CONTINUED) FAX: Esau Weaver DO [place]: B St: DEP ---- Name: MOJGAN CUMMINGS [facility] : 1950 Age/S: 68/F [address] [facility] Unit #: [id number] Loc: [place] [address] Phys: Esau Weaver DO Acct: [id number] Dis Date: Status: DEP ER PHONE # : [phone] Exam Date: 11/27/2018 1245 FAX #: Reason: THIGH PAIN EXAMS : CPT CODE: [id number] XR FEMU R MIN [address] [place] [address] <Continued> No acute fracture or dislocation of the right hip. DJD. at 1318 Reported and signed by: Clem Grissom M.D. CC: Esau Weaver DO Technologist: JERAMIE LOPEZ RT(R); Eric Chavez RT(R) Trnscrd Date/Time/By: 11/27/2018 (6208) : By: [email or web address] Orig Print D/T: S: 11/27/2018 (6496) PAGE 2 Signed Report - XR PELVIS 1/2 [id number] 13:18:00 FAX: Esau Weaver DO [place]: St: REG Name: MOJGAN SAUCEDO [facility] : [birth year] Age/S: 68/F [address] [facility] Unit #: [id number] Loc: [place] [address] Phys: Esau Weaver DO Acct: [id number] Dis Date: Status: REG ER PHONE #: [phone] Exam Date: 11/27/2018 1245 FAX #: [phone] Reason: PELVIC PAIN EXAMS: CPT CODE: [id number] XR PELVIS 1/2 VIEWS 00817 HISTORY: Pain after fall. COMPARISON: Chest x-ray [...] Signed Report (CONTINUED) FAX: Esau Weaver DO [place]: St: REG ---- Name: MOJGAN CUMMINGS [facility] : 1950 Age/S: 68/F [address] [facility] Unit #: [id number] Loc: [place] [address] Phys: Esau Weaver DO Acct: [id number] Dis Date: Status: REG ER PHONE # : [phone] Exam Date: 11/27/2018 1245 FAX #: Reason: PELVIC PAIN EXAMS : CPT CODE: [id number] XR PELV IS 1/2 VIEWS 99547 <Continued> No acute fracture or dislocation of the right hip. DJD. at 1318 Reported and signed by: Clem Grissom M.D. CC: Esau Weaver DO Technologist: Eric Chavez RT(R) Trnscrd Date/Time/By: 11/27/2018 (8341) : By: [email or web address] Orig Print D/T: S: 11/27/2018 (8924) PAGE 2 Signed Report - XR FEMUR MIN 2 VWS [id number] 13:18:00 FAX: Esau Weaver DO [place]: B St: REG Name: MOJGAN SAUCEDO [facility] : [birth year] Age/S: 68/F [address] [facility] Unit #: [id number] Loc: [place] [address] Phys: EdgarEsau canela DO Acct: [id number] Dis Date: Status: REG ER PHONE #: [phone] Exam Date: 11/27/2018 1245 FAX #: [phone] Reason: THIGH PAIN EXAMS: CPT CODE: [id number] XR FEMUR MIN [address] [place] [address] HISTORY: Pain after fall. COMPARISON: Chest x-ray [...] Signed Report (CONTINUED) FAX: Esau Weaver DO [place]: St: REG ---- Name: MOJGAN CUMMINGS [facility] : 1950 Age/S: 68/F [address] [facility] Unit #: [id number] Loc: [place] [address] Phys: Esau Weaver DO Acct: [id number] Dis Date: Status: REG ER PHONE # : [phone] Exam Date: 11/27/2018 1245 FAX #: Reason: THIGH PAIN EXAMS : CPT CODE: [id number] XR FEMU R MIN [address] [place] [address] <Continued> No acute fracture or dislocation of the right hip. DJD. at 1318 Reported and signed by: Clem Grissom M.D. CC: Esau Weaver DO Technologist: JERAMIE LOPEZ RT(R); Eric Chavez RT(R) [facility] Date/Time/By: 11/27/2018 (1318) : By: [email or web address] Orig Print D/T: S: 11/27/2018 (1320) PAGE 2 Signed Report - XR FEMUR MIN 2 VWS [id number] 13:18:00 FAX: Esau Weaver DO [place]: St: REG Name: MOJGAN SAUCEDO [facility] : [birth year] Age/S: 68/F [address] Unit #: [id number] Loc: [place] [address] Phys: Esau Weaver DO Acct: [id number] Dis Date: Status: REG ER PHONE #: [phone] Exam Date: 11/27/2018 1245 FAX #: [phone] Reason: THIGH PAIN EXAMS: CPT CODE: [id number] XR FEMUR MIN [address] [place] [address] HISTORY: Pain after fall. COMPARISON: Chest x-ray [...] Signed Report (CONTINUED) FAX: MegEsau Calixto VENEGAS [place]: B St: REG ---- Name: MOJGAN CUMMINGS [facility] : 1950 Age/S: 68/F [address] Unit #: [id number] Loc: [place] [address] Phys: Esau Weaver DO Acct: [id number] Dis Date: Status: REG ER PHONE # : [phone] Exam Date: 11/27/2018 1245 FAX #: [phone] Reason: THIGH PAIN EXAMS : CPT CODE: [id number] XR FEMU R MIN 2 [place] [address] <Continued> No acute fracture or dislocation of the right hip. DJD. at 1318 Reported and signed by: Clem Grissom M.D. CC: Esau Weaver DO Technologist: JERAMIE LOPEZ RT(R); Eric Chavez RT(R) [facility] Date/Time/By: 11/27/2018 (9534) : By: [email or web address] Orig Print D/T: S: 11/27/2018 (6659) PAGE 2 Signed Report - XR CHEST 1 [id number] 13:18:00 FAX: Esau Weaver DO [place]: B St: REG Name: Calixto CHRISSYMOJGAN [facility] : [birth year] Age/S: 68/F [address] Unit #: [id number] Loc: [place] [address] Phys: Esau Weaver DO Acct: [id number] Dis Date: Status: REG ER PHONE #: [phone] Exam Date: 11/27/2018 1245 FAX #: [phone] Reason: CHEST PAIN EXAMS: CPT CODE: [id number] XR CHEST 1 V 61417 HISTORY: Pain after fall. COMPARISON: Chest x-ray [...] Signed Report (CONTINUED) FAX: Esau Weaver DO [place]: St: REG ---- Name: MOJGAN CUMMINGS [facility] : 1950 Age/S: 68/F [address] [facility] Unit #: [id number] Loc: [place] [address] Phys: Esau Weaver DO Acct: [id number] Dis Date: Status: REG ER PHONE # : [phone] Exam Date: 11/27/2018 1241 FAX #: [phone] Reason: CHEST PAIN EXAMS : CPT CODE: [id number] XR CHES T 1 V 74709 <Continued> No acute fracture or dislocation of the right hip. DJD. at 1318 Reported and signed by: Clem Grissom M.D. CC: Esau Weaver DO Technologist: Eric Chavez RT(R) Trnscrd Date/Time/By: 11/27/2018 (7154) : By: [email or web address] Orig Print D/T: S: 11/27/2018 (0613) PAGE 2 Signed Report - XR CHEST 1 [id number] 13:18:00 FAX: Esau Weaver DO [place]: B St: DEP Name: MOJGAN SAUCEDO [facility] : [birth year] Age/S: 68/F [address] [facility] Unit #: [id number] Loc: [place] [address] Phys: Esau Weaver DO Acct: [id number] Dis Date: Status: DEP ER PHONE #: [phone] Exam Date: 11/27/2018 1245 FAX #: [phone] Reason: CHEST PAIN EXAMS: CPT CODE: [id number] XR CHEST 1 V 77048 HISTORY: Pain after fall. COMPARISON: Chest x-ray [...] Signed Report (CONTINUED) FAX: Esau Weaver DO [place]: St: DEP ---- Name: MOJGAN CUMMINGS [facility] : 1950 Age/S: 68/F [address] [facility] Unit #: [id number] Loc: [place] [address] Phys: Esau Weaver DO Acct: [id number] Dis Date: Status: DEP ER PHONE # : [phone] Exam Date: 11/27/2018 1247 FAX #: [phone] Reason: CHEST PAIN EXAMS : CPT CODE: [id number] XR CHES T 1 V 11664 <Continued> No acute fracture or dislocation of the right hip. DJD. at 1318 Reported and signed by: Clem Grissom M.D. CC: Esau Weaver DO Technologist: Eric Chavez RT(R) Trnscrd Date/Time/By: 11/27/2018 (0454) : By: [email or web address] Orig Print D/T: S: 11/27/2018 (2207) PAGE 2 Signed Report - XR PELVIS 1/2 [id number] 13:18:00 FAX: Esau Weaver DO [place]: B St: DEP Name: MOJGAN SAUCEDO [facility] : [birth year] Age/S: 68/F [address] [facility] Unit #: [id number] Loc: [place] [address] Phys: Esau Weaver DO Acct: [id number] Dis Date: Status: DEP ER PHONE #: [phone] Exam Date: 11/27/2018 1245 FAX #: [phone] Reason: PELVIC PAIN EXAMS: CPT CODE: [id number] XR PELVIS 1/2 VIEWS 36075 HISTORY: Pain after fall. COMPARISON: Chest x-ray [...] Signed Report (CONTINUED) FAX: Esau Weaver DO [place]: St: DEP ---- Name: MOJGAN CUMMINGS [facility] : 1950 Age/S: 68/F [address] [facility] Unit #: [id number] Loc: [place] [address] Phys: Esau Weaver DO Acct: [id number] Dis Date: Status: DEP ER PHONE # : [phone] Exam Date: 11/27/2018 1245 FAX #: [phone] Reason: PELVIC PAIN EXAMS : CPT CODE: [id number] XR PELV IS 1/2 VIEWS 17012 <Continued> No acute fracture or dislocation of the right hip. DJD. at 1318 Reported and signed by: Clem Grissom M.D. CC: Esau Weaver DO Technologist: Eric ALEXANDRA(R) Trnscrd Date/Time/By: 11/27/2018 (1318) : By: [email or web address] Orig Print D/T: S: 11/27/2018 (0204) PAGE 2 Signed Report - XR FEMUR MIN 2 VWS [id number] 13:18:00 FAX: Esau Weaver DO [place]: St: DEP Name: MOJGAN SAUCEDO [facility] : [birth year] Age/S: 68/F [address] [facility] Unit #: [id number] Loc: [place] [address] Phys: Esau Weaver DO Acct: [id number] Dis Date: Status: DEP ER PHONE #: [phone] Exam Date: 11/27/2018 1245 FAX #: [phone] Reason: THIGH PAIN EXAMS: CPT CODE: [id number] XR FEMUR MIN [address] [place] [address] HISTORY: Pain after fall. COMPARISON: Chest x-ray [...] Signed Report (CONTINUED) FAX: Esau Weaver DO [place]: B St: DEP ---- Name: MOJGAN CUMMINGS [facility] : 1950 Age/S: 68/F [address] Unit #: [id number] Loc: [place] [address] Phys: Esau Weaver DO Acct: [id number] Dis Date: Status: DEP ER PHONE # : [phone] Exam Date: 11/27/2018 1243 FAX #: Reason: THIGH PAIN EXAMS : CPT CODE: [id number] XR FEMU R MIN 2 [place] [address] <Continued> No acute fracture or dislocation of the right hip. DJD. at 1318 Reported and signed by: Clem Grissom M.D. CC: Esau Weaver DO Technologist: JERAMIE LOPEZ RT(R); Eric Chavez RT(R) [facility] Date/Time/By: 11/27/2018 (6011) : By: [email or web address] Orig Print D/T: S: 11/27/2018 (3539) PAGE 2 Signed Report - XR FEMUR MIN 2 VWS [id number] 13:18:00 FAX: Esau Weaver DO [place]: B St: DEP Name: Calixto LOWEMOJGAN [facility] : [birth year] Age/S: 68/F [address] Unit #: [id number] Loc: [place] [address] Phys: Esau Weaver DO Acct: [id number] Dis Date: Status: DEP ER PHONE #: [phone] Exam Date: 11/27/2018 1245 FAX #: [phone] Reason: THIGH PAIN EXAMS: CPT CODE: [id number] XR FEMUR MIN [address] [place] [address] HISTORY: Pain after fall. COMPARISON: Chest x-ray [...] Signed Report (CONTINUED) FAX: Esau Weaver DO [place]: B St: DEP ---- Name: MOJGAN CUMMINGS [facility] : 1950 Age/S: 68/F [address] Unit #: [id number] Loc: [place] [address] Phys: Esau Weaver DO Acct: [id number] Dis Date: Status: DEP ER PHONE # : [phone] Exam Date: 11/27/2018 1245 FAX #: Reason: THIGH PAIN EXAMS : CPT CODE: [id number] XR FEMU R MIN [address] [place] [address] <Continued> No acute fracture or dislocation of the right hip. DJD. at 1318 Reported and signed by: Clem Grissom M.D. CC: Esau Weaver DO Technologist: JERAMIE LOPEZ RT(R); Eric Chavez RT(R) Trnscrd Date/Time/By: 11/27/2018 (4282) : By: [email or web address] Orig Print D/T: S: 11/27/2018 (5650) PAGE 2 Signed Report BASIC METABOLIC [id number] 12:55:00* Test Item Value Reference Range Interpretation [...] CA) 8.5 mg/dL 8.5-10.1 N HEPATIC FUNCTION [id number] 12:55:00* Test Item Value Reference Range Interpretation [...] reference range due to change in reagent. [id number] 12:55:00* Test Item Value Reference Range Interpretation Comments TROPONIN-I (test code = TROPI) <0.015 ng/mL 0-0.045 N - CT C-SPINE W/O [id number] 12:49:00 Name: MOJGAN CUMMINGS [facility] : 1950 Age/S: 68 / F [address] [facility] Unit #: [id number] Loc: [place] [address] Phys: Esau Weaver DO Acct: [id number] Dis Date: Status: DEP ER PHONE #: [phone] Exam Date: 11/27/2018 1236 FAX #: [phone] Reason: Neck Pain EXAMS: CPT CODE: [id number] CT C-SPINE W/O CONTRAST 98838 HISTORY: Neck pain. COMPARISON: CT neck from [...] Cortes RT(R),(MR),(CT); CTDI: DLP: Trnscb Date/Time: 11/27/2018 (2536) [email or web address] Orig Print D/T: S: 11/27/2018 (9553) PAGE 1 Signed Report - CT C-SPINE W/O CONTRAST 2018-11-27 12:49:00 Name: MOJGAN CUMMINGS [facility] : 1950 Age/S: 68 / F [address] [facility] Unit #: [id number] Loc: [place] [address] Phys: Esau Weaver DO Acct: [id number] Dis Date: Status: REG ER PHONE #: [phone] Exam Date: 11/27/2018 1236 FAX #: [phone] Reason: Neck Pain EXAMS: CPT CODE: [id number] CT C-SPINE W/O CONTRAST 15013 HISTORY: Neck pain. COMPARISON: CT neck from [...] 1 Signed Report - CT C-SPINE W/O [id number] 12:49:00 Name: MOJGAN CUMMINGS [facility] : 1950 Age/S: 68 / F [address] [facility] Unit #: [id number] Loc: [place] [address] Phys: Esau Weaver DO Acct: [id number] Dis Date: Status: DEP ER PHONE #: [phone] Exam Date: 11/27/2018 1236 FAX #: [phone] Reason: Neck Pain EXAMS: CPT CODE: [id number] CT C-SPINE W/O CONTRAST 09900 HISTORY: Neck pain. COMPARISON: CT neck from [...] 1 Signed Report - CT HEAD/BRAIN W/O [id number] 12:40:00 Name: MOJGAN CUMMINGS [facility] : 1950 Age/S: 68 / F [address] Unit #: [id number] Loc: [place] [address] Phys: Esau Weaver DO Acct: [id number] Dis Date: Status: DEP ER PHONE #: [phone] Exam Date: 11/27/2018 1236 FAX #: [phone] Reason: HEADACHE EXAMS: CPT CODE: [id number] CT HEAD/BRAIN W/O CONT 21541 HISTORY: Headaches. COMPARISON: November 03, 2017. CT [...] RT(R),(MR),(CT); CTDI: DLP: Trnscb Date/Time: 11/27/2018 (1240) [email or web address] Orig Print D/T: S: 11/27/2018 (9346) PAGE 1 Signed Report - CT HEAD/BRAIN W/O CONT 2018-11-27 12:40:00 Name: MOJGAN CUMMINGS [facility] : 1950 Age/S: 68 / F [address] Unit #: [id number] Loc: [place] [address] Phys: EdgarEsau canela Calixto DO Acct: [id number] Dis Date: Status: REG ER PHONE #: [phone] Exam Date: 11/27/2018 1236 FAX #: [phone] Reason: HEADACHE EXAMS: CPT CODE: [id number] CT HEAD/BRAIN W/O CONT 52275 HISTORY: Headaches. COMPARISON: November 03, 2017. CT [...] RT(R),(MR),(CT); CTDI: DLP: Trnscb Date/Time: 11/27/2018 (1240) [email or web address] Orig Print D/T: S: 11/27/2018 (0134) CTDI: DLP: PAGE 1 Signed Report - CT HEAD/BRAIN W/O [id number] 12:40:00 Name: MOJGAN CUMMINGS [facility] : 1950 Age/S: 68 / F [address] Unit #: [id number] Loc: [place] [address] Phys: Esau Weaver DO Acct: [id number] Dis Date: Status: DEP ER PHONE #: [phone] Exam Date: 11/27/2018 1236 FAX #: [phone] Reason: HEADACHE EXAMS: CPT CODE: [id number] CT HEAD/BRAIN W/O CONT 74928 HISTORY: Headaches. COMPARISON: November 03, 2017. CT [...] (1240) [email or web address] Orig Print D/T: S: 11/27/2018 (7598) PAGE 1 Signed Report CBC W/O [id number] 12:38:00* Test Item Value Reference Range Interpretation [...] K/mm3 150-450 L CHEST SINGLE (PORTABLE)2018-11-16 14:29:00 [place] [address] Patient Name: MOJGAN CUMMINGS MR #: [id number] : 1950 Age/Sex: 68/F Req #: [id number] Adm Physician: Ordered by: WILIAM MARTINEZ MD Report #: [id number] Location: ER Room/Bed: Procedure: [id number] DX /CHEST SINGLE (PORTABLE) Exam Date: 11/16/18 [...] 11/16/18 1435 COPY TO: WILIAM MARTINEZ MD [id number] 18:44:0012.9[facility] XtdocpiBLGLDDXQJSKM5252-64-45 18:44:0018[facility] [place] KVRVJLBWAFRL9149-04-40 18:44:009.9[facility] IenibfaEALAGVOQXVHS6053-22-16 18:44:004.9[facility] RoxvysyMMGATFRSEJEY9095-91-93 18:44:96216Yyjjpntg [place] VHXDFVUGLRJO8251-77-79 18:44:000.80[facility] ByrbregUNXJTBDNXZBL1763-44-19 18:44:66333Jbsogvhy QzamsyaJSUSSCROKEBZ5682-80-58 18:44:0094[facility] [place] XENZYRLPKPKF8851-51-33 18:44:0036[facility] MbbqdzxYXWLGAHWVFCP3814-47-73 18:44:00 75[facility] Lbropyg8777-72-03 08:10:00* Test Item Value Reference Range Interpretation Comments Blood Culture (test code = 51604625) NO GROWTH AFTER 5 DAYS, FINAL REPORT [facility] Ooanxjv9735-87-77 17:16:00* Test Item Value Reference Range Interpretation Comments Bedside Glucose (test code = 32083-1) 104 70-120 Meter ID: [id number] Glucose 2018-08-16 17:16:00* Test Item Value Reference Range Interpretation Comments Bedside Glucose (test code = 23043-5) 104 70-120 Meter ID: [id number]enClostridium Difficile Toxin A & [id number] 16:00:00* Test Item Value Reference Range Interpretation Comments Clostridium Difficile Toxin A & B (test code = 513589326) NEGATIVE NEGATIVE Testing on stool aspirate specimens is outside supervisor uranium processing claims since specime n type not validated on this assay.[facility] Clostridium Difficile Toxin A & [id number] 16:00:00* Test Item Value Reference Range Interpretation Comments Clostridium Difficile Toxin A & B (test code = 163462024) NEGATIVE NEGATIVE Testing on stool aspirate specimens is outside supervisor uranium processing claims since specime n type not validated on this assay.[facility] Qlutu3845-33-62 15:20:00* Test Item Value Reference Range Interpretation Comments Stool Occult Blood (test code = 2335-8) NEGATIVE NEGATIVE [facility] Hezlh6029-77-17 15:20:00* Test Item Value Reference Range Interpretation Comments Stool Occult Blood (test code = 2335-8) [facility]GATIVE [facility] Qblzo0231-38-96 15:20:00* Test Item Value Reference Range Interpretation Comments Stool Occult Blood (test code = 2335-8) [facility]GAT[facility] Mttgdpk9068-15-10 11:22:00* Test Item Value Reference Range Interpretation Comments Sputum Culture (test code = 624-7) Organism: PSEUDOMONAS AERUGINOSA [facility] Hitpqdt1683-49-10 11:22:00* Test Item Value Reference Range Interpretation Comments Sputum Culture (test code = 624-7) Organism: PSEUDOMONAS AERUGINOSA [facility] Hnnwdzb1398-51-72 11:22:00* Test Item Value Reference Range Interpretation Comments Sputum Culture (test code = 624-7) Organism: PSEUDOMONAS AERUGINOSA [facility] Vfvqwed9140-67-63 08:09:00* Test Item Value Reference Range Interpretation Comments Blood Culture (test code = 06091848) NO GROWTH AFTER 72 HOURS [facility]en[facility] Natriuretic Xrycaxw0014-06-66 06:49:00* Test Item Value Reference Range Interpretation Comments B-Type Natriuretic Peptide (test code = 24716-6) 92.3 0-100 [facility]en[facility] Natriuretic Xpnrcot6373-89-47 06:49:00* Test Item Value Reference Range Interpretation Comments B-Type Natriuretic Peptide (test code = 26682-3) 92.3 0-100 [facility] Dajre8361-99-59 06:23:00* Test Item Value Reference Range Interpretation Comments Sodium Level (test code = 2951-2) 136 136-145 [facility]enPotassium Yhypk6164-80-76 06:23:00* Test Item Value Reference Range Interpretation Comments Potassium Level (test code = 2823-3) 3.9 3.5-5.1 [facility]enChloride Qfcds6012-73-16 06:23:00* Test Item Value Reference Range Interpretation Comments Chloride Level (test code = 2075-0) 100 98-107 [facility]enCarbon Dioxide Mnbxc8829-33-88 06:23:00* Test Item Value Reference Range Interpretation Comments Carbon Dioxide Level (test code = 2028-9) 28 22-29 [facility] HarlingenAnion Fut5234-03-26 06:23:00* Test Item Value Reference Range Interpretation Comments Anion Gap (test code = 29203-7) 11.9 8-16 [facility]enBlood Urea Sumwzbdz9170-04-76 06:23:00* Test Item Value Reference Range Interpretation Comments Blood Urea Nitrogen (test code = 3094-0) 11 7-26 [facility]lingenCreatinine2018-11-27 06:23:00* Test Item Value Reference Range Interpretation Comments Creatinine (test code = 2160-0) 0.59 0.57-1.11 [facility]enBUN/Creatinine Tkokk8483-69-19 06:23:00* Test Item Value Reference Range Interpretation Comments BUN/Creatinine Ratio (test code = 3097-3) 19 6- [facility] HarlingenEstimat Glomerular Filtration Rate 2018-08-15 06:23:00* Test Item Value Reference Range Interpretation Comments Estimat Glomerular Filtration Rate (test code = 662532599) > 60 >60 Ranges were taken from the National Kidney Disease Education Program and the [facility] Foundation literature.Reference ranges:60 or greater: Coisjs69-68 ( for 3 consecutive months): Chronic kidney disease 15 or less: Kidney failureVal[facility] – HarlingenGlucose Irllg4665-81-35 06:23:00* Test Item Value Reference Range Interpretation Comments Glucose Level (test code = HFS8023) 105 74-118 [facility]enCalcium Wjzwn8789-14-88 06:23:00* Test Item Value Reference Range Interpretation Comments Calcium Level (test code = 07379-5) 9.1 8.4-10.2 [facility]enMagnesium Wffbm8413-89-19 06:23:00* Test Item Value Reference Range Interpretation Comments Magnesium Level (test code = 43152-0) 1.4 1.3-2.1 [facility] Erklv9903-81-33 06:23:00* Test Item Value Reference Range Interpretation Comments Sodium Level (test code = 2951-2) 136 136-145 [facility]enPotassium Krjgn3915-71-62 06:23:00* Test Item Value Reference Range Interpretation Comments Potassium Level (test code = 2823-3) 3.9 3.5-5.1 [facility]enChloride Ujqmt9674-33-67 06:23:00* Test Item Value Reference Range Interpretation Comments Chloride Level (test code = 2075-0) 100 98-107 [facility] HarlingenCarbon Dioxide Kjtwn7196-78-80 06:23:00* Test Item Value Reference Range Interpretation Comments Carbon Dioxide Level (test code = 2028-9) 28 22-29 [facility] HarlingenAnion Kph7788-00-39 06:23:00* Test Item Value Reference Range Interpretation Comments Anion Gap (test code = 90577-9) 11.9 8-16 [facility]enBlood Urea Whotxohr8194-49-98 06:23:00* Test Item Value Reference Range Interpretation Comments Blood Urea Nitrogen (test code = 3094-0) 11 7-26 [facility]enCreatinine2018-11-27 06:23:00* Test Item Value Reference Range Interpretation Comments Creatinine (test code = 2160-0) 0.59 0.57-1.11 [facility]enBUN/Creatinine Fkiaq7613-33-60 06:23:00* Test Item Value Reference Range Interpretation Comments BUN/Creatinine Ratio (test code = 3097-3) 19 6-25 [facility]lingenEstimat Glomerular Filtration Rate 2018-08-15 06:23:00* Test Item Value Reference Range Interpretation Comments Estimat Glomerular Filtration Rate (test code = 428071771) > 60 >60 Ranges were taken from the National Kidney Disease Education Program and the [facility] Kid[facility] Foundation literature.Reference ranges:60 or greater: Edcmnm40-71 ( for 3 consecutive months): Chronic kidney disease 15 or less: Kidney failureVal[facility] – HarlingenGlucose Copfu6284-38-30 06:23:00* Test Item Value Reference Range Interpretation Comments Glucose Level (test code = MZU6457) 105 74-118 [facility]enCalcium Jepel9434-32-61 06:23:00* Test Item Value Reference Range Interpretation Comments Calcium Level (test code = 92240-0) 9.1 8.4-10.2 [facility]enMagnesium Nbjqi9476-09-16 06:23:00* Test Item Value Reference Range Interpretation Comments Magnesium Level (test code = 90159-3) 1.4 1.3-2.1 [facility]enWhite Blood Ldpxg3048-00-97 06:01:00* Test Item Value Reference Range Interpretation Comments White Blood Count (test code = 6690-2) 6.60 4.8-10.8 [facility]enRed Blood Jauqa6427-19-64 06:01:00* Test Item Value Reference Range Interpretation Comments Red Blood Count (test code = 789-8) 3.38 3.6-5.1 L [facility]enHemoglobin2018-11-27 06:01:00* Test Item Value Reference Range Interpretation Comments Hemoglobin (test code = 48369-1) 9.6 12.0-16.0 L [facility]lingenHematocrit2018-11-27 06:01:00* Test Item Value Reference Range Interpretation Comments Hematocrit (test code = 4544-3) 29.9 34.2-44.1 L [facility] HarlingenMean Corpuscular Hwclmd6079-75-14 06:01:00* Test Item Value Reference Range Interpretation Comments Mean Corpuscular Volume (test code = 787-2) 88.5 81-99 [facility]enMean Corpuscular Cskzwmswkb1611-20-87 06:01:00* Test Item Value Reference Range Interpretation Comments Mean Corpuscular Hemoglobin (test code = 785-6) 28.4 28-32 [facility] HarlingenMean Corpuscular Hemoglobin Concent 2018-08-15 06:01:00* Test Item Value Reference Range Interpretation Comments Mean Corpuscular Hemoglobin Concent (test code = 786-4) 32.1 31-35 [facility]enRed Cell Distribution Ekrve1265-66-15 06:01:00* Test Item Value Reference Range Interpretation Comments Red Cell Distribution Width (test code = 60736-7) 16.4 11.7 -14.4 H [facility] HarlingenPlatelet Eeqpz7092-91-08 06:01:00* Test Item Value Reference Range Interpretation Comments Platelet Count (test code = 777-3) 55 140-360 L [facility]lingenNeutrophils (%) (Auto)2018-08-15 06:01:00 * Test Item Value Reference Range Interpretation Comments Neutrophils (%) (Auto) (test code = 80008-6) 65.8 38.7-80.0 [facility]lingenLymphocytes (%) (Auto)2018-08-15 06:01:00 * Test Item Value Reference Range Interpretation Comments Lymphocytes (%) (Auto) (test code = 736-9) 22.4 18.0-39.1 [facility]enMonocytes (%) (Auto)2018-08-15 06:01:00* Test Item Value Reference Range Interpretation Comments Monocytes (%) (Auto) (test code = 5905-5) 7.7 4.4-11.3 [facility]enEosinophils (%) (Auto)2018-08-15 06:01:00 * Test Item Value Reference Range Interpretation Comments Eosinophils (%) (Auto) (test code = 713-8) 2.9 0.0-6.0 [facility]enBasophils (%) (Auto)2018-08-15 06:01:00* Test Item Value Reference Range Interpretation Comments Basophils (%) (Auto) (test code = 706-2) 0.3 0.0-1.0 [facility]lingenIM GRANULOCYTES %2018-08-15 06:01:00* Test Item Value Reference Range Interpretation Comments IM GRANULOCYTES % (test code = IM GRANULOCYTES %) 0.9 0.0- 1.0 [facility]enNeutrophils # (Auto)2018-08-15 06:01:00* Test Item Value Reference Range Interpretation Comments Neutrophils # (Auto) (test code = 751-8) 4.3 2.1-6.9 [facility]enLymphocytes # (Auto)2018-08-15 06:01:00* Test Item Value Reference Range Interpretation Comments Lymphocytes # (Auto) (test code = 69285-2) 1.5 1.0-3.2 [facility]enMonocytes # (Auto)2018-08-15 06:01:00* Test Item Value Reference Range Interpretation Comments Monocytes # (Auto) (test code = 742-7) 0.5 0.2-0.8 [facility]enEosinophils # (Auto)2018-08-15 06:01:00* Test Item Value Reference Range Interpretation Comments Eosinophils # (Auto) (test code = 711-2) 0.2 0.0-0.4 [facility]enBasophils # (Auto)2018-08-15 06:01:00* Test Item Value Reference Range Interpretation Comments Basophils # (Auto) (test code = 704-7) 0.0 0.0-0.1 [facility] HarlingenAbsolute Immature Granulocyte (auto 2018-08-15 06:01:00* Test Item Value Reference Range Interpretation Comments Absolute Immature Granulocyte (auto (melina t code = Absolute Immature Granulocyte (auto) 0.06 0-0.1 [facility]enWhite Blood Ulujc2711-04-27 06:01:00* Test Item Value Reference Range Interpretation Comments White Blood Count (test code = 6690-2) 6.60 4.8-10.8 [facility]enRed Blood Oyuwh4926-40-03 06:01:00* Test Item Value Reference Range Interpretation Comments Red Blood Count (test code = 789-8) 3.38 3.6-5.1 L [facility]enHemoglobin2018-11-27 06:01:00* Test Item Value Reference Range Interpretation Comments Hemoglobin (test code = 83388-0) 9.6 12.0-16.0 L [facility]enHematocrit2018-11-27 06:01:00* Test Item Value Reference Range Interpretation Comments Hematocrit (test code = 4544-3) 29.9 34.2-44.1 L [facility]enMean Corpuscular Rknzco6322-26-65 06:01:00* Test Item Value Reference Range Interpretation Comments Mean Corpuscular Volume (test code = 787-2) 88.5 81-99 [facility]enMean Corpuscular Ebbgmljnla8665-77-00 06:01:00* Test Item Value Reference Range Interpretation Comments Mean Corpuscular Hemoglobin (test code = 785-6) 28.4 28-32 [facility] Corp[facility] Hemoglobin Concent 2018-08-15 06:01:00* Test Item Value Reference Range Interpretation Comments Mean Corpuscular Hemoglobin Concent (test code = 786-4) 32.1 31-35 [facility]enRed Cell Distribution Aspmb4513-54-26 06:01:00* Test Item Value Reference Range Interpretation Comments Red Cell Distribution Width (test code = 89155-3) 16.4 11.7 -14.4 H [facility] HarlingenPlatelet Mcrhx0344-22-95 06:01:00* Test Item Value Reference Range Interpretation Comments Platelet Count (test code = 777-3) 55 140-360 L [facility]lingenNeutrophils (%) (Auto)2018-08-15 06:01:00 * Test Item Value Reference Range Interpretation Comments Neutrophils (%) (Auto) (test code = 09978-0) 65.8 38.7-80.0 [facility]enLymphocytes (%) (Auto)2018-08-15 06:01:00 * Test Item Value Reference Range Interpretation Comments Lymphocytes (%) (Auto) (test code = 736-9) 22.4 18.0-39.1 [facility]enMonocytes (%) (Auto)2018-08-15 06:01:00* Test Item Value Reference Range Interpretation Comments Monocytes (%) (Auto) (test code = 5905-5) 7.7 4.4-11.3 [facility]enEosinophils (%) (Auto)2018-08-15 06:01:00 * Test Item Value Reference Range Interpretation Comments Eosinophils (%) (Auto) (test code = 713-8) 2.9 0.0-6.0 [facility]enBasophils (%) (Auto)2018-08-15 06:01:00* Test Item Value Reference Range Interpretation Comments Basophils (%) (Auto) (test code = 706-2) 0.3 0.0-1.0 [facility]enIM GRANULOCYTES %2018-08-15 06:01:00* Test Item Value Reference Range Interpretation Comments IM GRANULOCYTES % (test code = IM GRANULOCYTES %) 0.9 0.0- 1.0 [facility]enNeutrophils # (Auto)2018-08-15 06:01:00* Test Item Value Reference Range Interpretation Comments Neutrophils # (Auto) (test code = 751-8) 4.3 2.1-6.9 [facility]enLymphocytes # (Auto)2018-08-15 06:01:00* Test Item Value Reference Range Interpretation Comments Lymphocytes # (Auto) (test code = 29169-4) 1.5 1.0-3.2 [facility]enMonocytes # (Auto)2018-08-15 06:01:00* Test Item Value Reference Range Interpretation Comments Monocytes # (Auto) (test code = 742-7) 0.5 0.2-0.8 [facility]enEosinophils # (Auto)2018-08-15 06:01:00* Test Item Value Reference Range Interpretation Comments Eosinophils # (Auto) (test code = 711-2) 0.2 0.0-0.4 [facility]enBasophils # (Auto)2018-08-15 06:01:00* Test Item Value Reference Range Interpretation Comments Basophils # (Auto) (test code = 704-7) 0.0 0.0-0.1 [facility]lingenAbsolute Immature Granulocyte (auto 2018-08-15 06:01:00* Test Item Value Reference Range Interpretation Comments Absolute Immature Granulocyte (auto (melina t code = Absolute Immature Granulocyte (auto) 0.06 0-0.1 [facility]enVitamin B12 Cnsun1495-95-68 06:48:00* Test Item Value Reference Range Interpretation Comments Vitamin B12 Level (test code = 61330-4) 740 213-816 [facility] HarlingenFolate2018-11-26 06:48:00* Test Item Value Reference Range Interpretation Comments Folate (test code = 2284-8) 5.7 7.0-15.4 L [facility] HarlingenVitamin B12 Binpz5279-41-11 06:48:00* Test Item Value Reference Range Interpretation Comments Vitamin B12 Level (test code = 37835-9) 740 213-816 [facility] HarlingenFolate2018-11-26 06:48:00* Test Item Value Reference Range Interpretation Comments Folate (test code = 2284-8) 5.7 7.0-15.4 L [facility]lingenFerritin2018-11-26 06:09:00* Test Item Value Reference Range Interpretation Comments Ferritin (test code = 2276-4) 138.64 4.63-204.00 [facility] HarlingenFerritin2018-11-26 06:09:00* Test Item Value Reference Range Interpretation Comments Ferritin (test code = 2276-4) 138.64 4.63-204.00 [facility] HarlingenIron Sqgbq8317-03-53 05:52:00* Test Item Value Reference Range Interpretation Comments Iron Level (test code = 2498-4) 60 50-170 [facility]lingenTotal Iron Binding Kjjazrpu5762-39-12 05:52:00* Test Item Value Reference Range Interpretation Comments Total Iron Binding Capacity (test code = 2500-7) 140 261-4 78 L [facility] HarlingenPercent Iron Wnlalpkuga3712-43-89 05:52:00* Test Item Value Reference Range Interpretation Comments Percent Iron Saturation (test code = 2502-3) 43 15-50 [facility] HarlingenTransferrin2018-11-26 05:52:00* Test Item Value Reference Range Interpretation Comments Transferrin (test code = 3034-6) 100 180-382 L [facility]2018-11-26 05:52:00* Test Item Value Reference Range Interpretation Comments Iron Level (test code = 2498-4) 60 50-170 [facility]enTotal Iron Binding Gcyrumwc3093-18-41 05:52:00* Test Item Value Reference Range Interpretation Comments Total Iron Binding Capacity (test code = 2500-7) 140 261-4 78 L [facility] HarlingenPercent Iron Dhsurzgkzi3246-82-06 05:52:00* Test Item Value Reference Range Interpretation Comments Percent Iron Saturation (test code = 2502-3) 43 15-50 [facility] HarlingenTransferrin2018-11-26 05:52:00* Test Item Value Reference Range Interpretation Comments Transferrin (test code = 3034-6) 100 180-382 L [facility]2018-11-26 05:52:00* Test Item Value Reference Range Interpretation Comments Iron Level (test code = 2498-4) 60 50-170 [facility] Iron Binding Pzymvmjp4188-41-47 05:52:00* Test Item Value Reference Range Interpretation Comments Total Iron Binding Capacity (test code = 2500-7) 140 261-4 78 L [facility] HarlingenPercent Iron Umawetarux0330-74-98 05:52:00* Test Item Value Reference Range Interpretation Comments Percent Iron Saturation (test code = 2502-3) 43 15-50 [facility] HarlingenTransferrin2018-11-26 05:52:00* Test Item Value Reference Range Interpretation Comments Transferrin (test code = 3034-6) 100 180-382 L [facility] HarlingenUS ABDOMEN FXOWWUOX4398-45-04 12:16:00 [place] [address] Patient Name: MOJGAN CUMMINGS MR #: [id number] : 1950 Age/Sex: 68/F Req #: [id number] Adm Physician: ILAN STEIN MD Ordered by: RUSSELL BARRON MD Report #: [id number] [facility]: [facility] Room/Bed: [facility] Procedure: [id number] US/US ABDOMEN COMPLETE Exam Date: Exam Time: [...] wall thickening, pericholecystic fluid or hydrops. Sonographic Rodriguze's Sign: Negative Bile Ducts: Intrahepatic Ducts: No [...] TO: RUSSELL BARRON MD Differential Total Cells Fmzhmsn4152-53-44 08:51:00* Test Item Value Reference Range Interpretation Comments Differential Total Cells Counted (test code = Differen tial Total Cells Counted) 100 [facility]enNeutrophils % (Manual)2018-08-13 08:51:00 * Test Item Value Reference Range Interpretation Comments Neutrophils % (Manual) (test code = 51592-9) 64 40-74 [facility]lingenLymphocytes % (Manual)2018-08-13 08:51:00 * Test Item Value Reference Range Interpretation Comments Lymphocytes % (Manual) (test code = 737-7) 28 19-48 [facility]enMonocytes % (Manual)2018-08-13 08:51:00* Test Item Value Reference Range Interpretation Comments Monocytes % (Manual) (test code = 744-3) 8 3.4-9.0 [facility] HarlingenPlatelet Lfsrlqma0037-51-55 08:51:00* Test Item Value Reference Range Interpretation Comments Platelet Estimate (test code = 28947-9) MARKEDLY DECREASED [facility] HarlingenPlatelet Morphology Dcwaite4992-69-05 08:51:00* Test Item Value Reference Range Interpretation Comments Platelet Morphology Comment (test code = 41608-9) NORMAL [facility]enRed Cell Morphology Jzcisra8929-91-76 08:51:00* Test Item Value Reference Range Interpretation Comments Red Cell Morphology Comment (test code = 6742-1) NORMAL [facility] HarlingenDifferential Total Cells Counted 2018-08-13 08:51:00* Test Item Value Reference Range Interpretation Comments Differential Total Cells Counted (test code = Differen tial Total Cells Counted) 100 [facility]lingenNeutrophils % (Manual)2018-08-13 08:51:00 * Test Item Value Reference Range Interpretation Comments Neutrophils % (Manual) (test code = 55432-9) 64 40-74 [facility]lingenLymphocytes % (Manual)2018-08-13 08:51:00 * Test Item Value Reference Range Interpretation Comments Lymphocytes % (Manual) (test code = 737-7) 28 19-48 [facility]enMonocytes % (Manual)2018-08-13 08:51:00* Test Item Value Reference Range Interpretation Comments Monocytes % (Manual) (test code = 744-3) 8 3.4-9.0 [facility] HarlingenPlatelet Xdgfalam0166-46-04 08:51:00* Test Item Value Reference Range Interpretation Comments Platelet Estimate (test code = 78364-9) MARKEDLY DECREASED [facility] HarlingenPlatelet Morphology Khtafoh0951-69-41 08:51:00* Test Item Value Reference Range Interpretation Comments Platelet Morphology Comment (test code = 28798-3) NORMAL [facility] HarlingenRed Cell Morphology Bkechig5560-82-47 08:51:00* Test Item Value Reference Range Interpretation Comments Red Cell Morphology Comment (test code = 6742-1) NORMAL [facility] HarlingenPlatelet Morphology Unolnqj3384-53-41 08:51:00* Test Item Value Reference Range Interpretation Comments Platelet Morphology Comment (test code = 12756-9) NORMAL [facility] HarlingenTotal Zrddcxrta3899-54-67 07:58:00* Test Item Value Reference Range Interpretation Comments Total Bilirubin (test code = 1975-2) 0.3 0.2-1.2 [facility] HarlingenDirect Iqpcymxod0626-69-31 07:58:00* Test Item Value Reference Range Interpretation Comments Direct Bilirubin (test code = 22760-7) 0.2 0.0-0.5 [facility] HarlingenAspartate Amino Transf (AST/SGOT) 2018-08-13 07:58:00* Test Item Value Reference Range Interpretation Comments Aspartate Amino Transf (AST/SGOT) (test code = Aspartate Amino Transf (AST/SGOT)) 12 5-34 [facility] HarlingenAlanine Aminotransferase (ALT/SGPT) 2018-08-13 07:58:00* Test Item Value Reference Range Interpretation Comments Alanine Aminotransferase (ALT/SGPT) (test code = 1742-6) 6 0-55 [facility] HarlingenTotal Iyhnzsp1773-31-53 07:58:00* Test Item Value Reference Range Interpretation Comments Total Protein (test code = 2885-2) 5.1 6.5-8.1 L [facility] HarlingenAlbumin2018-11-25 07:58:00* Test Item Value Reference Range Interpretation Comments Albumin (test code = 1751-7) 2.3 3.5-5.0 L [facility] HarlingenAlkaline Hztkzilzzne8999-88-89 07:58:00* Test Item Value Reference Range Interpretation Comments Alkaline Phosphatase (test code = 6768-6) 68 40-150 [facility]enT[facility] Mdvpxzoxo8548-79-57 07:58:00* Test Item Value Reference Range Interpretation Comments Total Bilirubin (test code = 1975-2) 0.3 0.2-1.2 [facility]enDirect Judmzbefi0098-70-69 07:58:00* Test Item Value Reference Range Interpretation Comments Direct Bilirubin (test code = 17773-3) 0.2 0.0-0.5 [facility] HarlingenAspartate Amino Transf (AST/SGOT) 2018-08-13 07:58:00* Test Item Value Reference Range Interpretation Comments Aspartate Amino Transf (AST/SGOT) (test code = Aspartate Amino Transf (AST/SGOT)) 12 5-34 [facility]lingenAlanine Aminotransferase (ALT/SGPT) 2018-08-13 07:58:00* Test Item Value Reference Range Interpretation Comments Alanine Aminotransferase (ALT/SGPT) (test code = 1742-6) 6 0-55 [facility] HarlingenTotal Jlrfpxl5537-92-01 07:58:00* Test Item Value Reference Range Interpretation Comments Total Protein (test code = 2885-2) 5.1 6.5-8.1 L [facility] HarlingenAlbumin2018-11-25 07:58:00* Test Item Value Reference Range Interpretation Comments Albumin (test code = 1751-7) 2.3 3.5-5.0 L [facility] HarlingenAlkaline Tvphbdbhukt5677-91-51 07:58:00* Test Item Value Reference Range Interpretation Comments Alkaline Phosphatase (test code = 6768-6) 68 40-150 [facility]enDirect Gohzaynzr7798-99-69 07:58:00* Test Item Value Reference Range Interpretation Comments Direct Bilirubin (test code = 14863-2) 0.2 0.0-0.5 [facility]enGlobulin2018-11-25 07:56:00* Test Item Value Reference Range Interpretation Comments Globulin (test code = 27089-1) 2.9 2.3-3.5 [facility]enAlbumin/Globulin Xdmnu8796-67-17 07:56:00 * Test Item Value Reference Range Interpretation Comments Albumin/Globulin Ratio (test code = 1759-0) 0.8 0.8-2.0 [facility]enGlobulin2018-11-25 07:56:00* Test Item Value Reference Range Interpretation Comments Globulin (test code = 83640-2) 2.9 2.3-3.5 [facility]enAlbumin/Globulin Brhxe3963-32-17 07:56:00 * Test Item Value Reference Range Interpretation Comments Albumin/Globulin Ratio (test code = 1759-0) 0.8 0.8-2.0 [facility]enErythrocyte Sedimentation Jrbf3172-83-76 07:21:00* Test Item Value Reference Range Interpretation Comments Erythrocyte Sedimentation Rate (test code = 4537-7) 29 0- 20 H [facility]lingenErythrocyte Sedimentation Jdri9196-68-61 07:21:00* Test Item Value Reference Range Interpretation Comments Erythrocyte Sedimentation Rate (test code = 4537-7) 29 0- 20 H [facility]enErythrocyte Sedimentation Wdlb1444-24-90 07:21:00* Test Item Value Reference Range Interpretation Comments Erythrocyte Sedimentation Rate (test code = 4537-7) 29 0- 20 H [facility]lingenCreatine Kinase PC9259-22-12 07:13:00* Test Item Value Reference Range Interpretation Comments Creatine Kinase MB (test code = 32467-0) 0.50 0-5.0 [facility]enTroponin Y2344-17-46 07:13:00* Test Item Value Reference Range Interpretation Comments Troponin I (test code = AZK1292) 0.013 0-0.300 [facility]enCreatine Kinase LH6891-80-46 07:13:00* Test Item Value Reference Range Interpretation Comments Creatine Kinase MB (test code = 42863-1) 0.50 0-5.0 [facility]enTroponin U6814-95-88 07:13:00* Test Item Value Reference Range Interpretation Comments Troponin I (test code = DMC9578) 0.013 0-0.300 [facility]enCreatine Oddsfq5098-58-29 07:05:00* Test Item Value Reference Range Interpretation Comments Creatine Kinase (test code = 2157-6) 15 29-168 L [facility]enCreatine Emyosm9078-70-09 07:05:00* Test Item Value Reference Range Interpretation Comments Creatine Kinase (test code = 2157-6) 15 29-168 L [facility] HarlingenPercent Reticulocyte Odnuu9313-37-09 06:55:00* Test Item Value Reference Range Interpretation Comments Percent Reticulocyte Count (test code = 29497-5) 1.5 0.8-2 .2 [facility] Reticul[facility] Zxnry2834-38-39 06:55:00* Test Item Value Reference Range Interpretation Comments Percent Reticulocyte Count (test code = 32632-4) 1.5 0.8-2 .2 [facility] Sunnyvalec[facility] Reticulocyte Wyrjw7454-91-63 06:55:00* Test Item Value Reference Range Interpretation Comments Percent Reticulocyte Count (test code = 54400-1) 1.5 0.8-2 .2 [facility]enCHES SINGLE (PORTABLE)2018-08-12 05:55:00 [place] [address] Patient Name: MOJGAN CUMMINGS MR #: [id number] : 1950 Age/Sex: 68/F Req #: [id number] Adm Physician: Ordered by: ALFONSO ROBB MD Report #: [id number] Location: ER Room/Bed: Procedure: 1519-3860 DX/CHEST SINGLE (PORTABLE) Exam Date: 08/12/18 Exam Time: 519 REPORT STATUS: Signed EXAMINATION: CHEST SINGLE (PORTABLE) [...] Interpretation Comments Bedside Glucose (test code = 18152-6) 121 70-120 H Meter ID: [id number] Methodist Clear Lake Hospitalodium Level 2018-08-04 05:24:00* Test Item Value Reference Range Interpretation Comments Sodium Level (test code = 2951-2) 141 136-145 [facility] Center[facility] Ctjjf5491-14-85 05:24:00* Test Item Value Reference Range Interpretation Comments Potassium Level (test code = 2823-3) 4.0 3.5-5.1 [facility]enChloride Bjahj5149-01-95 05:24:00* Test Item Value Reference Range Interpretation Comments Chloride Level (test code = 2075-0) 114 98-107 H [facility]lingenCarbon Dioxide Psgdd7350-51-86 05:24:00* Test Item Value Reference Range Interpretation Comments Carbon Dioxide Level (test code = 2028-9) 19 22-29 L [facility]enAnion Nki1600-71-80 05:24:00* Test Item Value Reference Range Interpretation Comments Anion Gap (test code = 65659-9) 12.0 8-16 [facility]enBlood Urea Xuphwuku8136-34-75 05:24:00* Test Item Value Reference Range Interpretation Comments Blood Urea Nitrogen (test code = 3094-0) 21 7-26 [facility]enCreatinine2018-11-16 05:24:00* Test Item Value Reference Range Interpretation Comments Creatinine (test code = 2160-0) 0.58 0.57-1.11 [facility]enBUN/Creatinine Skwvh9018-25-57 05:24:00* Test Item Value Reference Range Interpretation Comments BUN/Creatinine Ratio (test code = 3097-3) 36 6-25 H [facility] HarlingenEstimat Glomerular Filtration Rate 2018-08-04 05:24:00* Test Item Value Reference Range Interpretation Comments Estimat Glomerular Filtration Rate (test code = 652209997) > 60 >60 Ranges were taken from the National Kidney Disease Education Program and the [facility] Kidney Foundation literature.Reference ranges:60 or greater: Skxdsh03-11 ( for 3 consecutive months): Chronic kidney disease 15 or less: Kidney failureVal[facility] – HarlingenGlucose Xivrw6128-43-38 05:24:00* Test Item Value Reference Range Interpretation Comments Glucose Level (test code = GQJ3367) 111 74-118 [facility]enCalcium Gcihv4269-30-30 05:24:00* Test Item Value Reference Range Interpretation Comments Calcium Level (test code = 01497-0) 8.0 8.4-10.2 L [facility]enMagnesium Lgjoo1086-14-63 05:24:00* Test Item Value Reference Range Interpretation Comments Magnesium Level (test code = 14102-4) 1.3 1.3-2.1 [facility]enWhite Blood Wwxmh3512-52-54 05:06:00* Test Item Value Reference Range Interpretation Comments White Blood Count (test code = 6690-2) 8.22 4.8-10.8 [facility]enRed Blood Azpbs4154-27-45 05:06:00* Test Item Value Reference Range Interpretation Comments Red Blood Count (test code = 789-8) 3.50 3.6-5.1 L [facility]enHemoglobin2018-11-16 05:06:00* Test Item Value Reference Range Interpretation Comments Hemoglobin (test code = 56991-0) 10.0 12.0-16.0 L [facility]lingenHematocrit2018-11-16 05:06:00* Test Item Value Reference Range Interpretation Comments Hematocrit (test code = 4544-3) 31.0 34.2-44.1 L [facility] HarlingenMean Corpuscular Oxisyx6363-72-76 05:06:00* Test Item Value Reference Range Interpretation Comments Mean Corpuscular Volume (test code = 787-2) 88.6 81-99 [facility]enMean Corpuscular Gcpmvcqgee5943-33-39 05:06:00* Test Item Value Reference Range Interpretation Comments Mean Corpuscular Hemoglobin (test code = 785-6) 28.6 28-32 [facility]lingenMean Corpuscular Hemoglobin Concent 2018-08-04 05:06:00* Test Item Value Reference Range Interpretation Comments Mean Corpuscular Hemoglobin Concent (test code = 786-4) 32.3 31-35 [facility]enRed Cell Distribution Tcrmn9925-60-88 05:06:00* Test Item Value Reference Range Interpretation Comments Red Cell Distribution Width (test code = 46346-3) 17.0 11.7 -14.4 H [facility] HarlingenPlatelet Qerxn6170-23-24 05:06:00* Test Item Value Reference Range Interpretation Comments Platelet Count (test code = 777-3) 88 140-360 L [facility]enNeutrophils (%) (Auto)2018-08-04 05:06:00 * Test Item Value Reference Range Interpretation Comments Neutrophils (%) (Auto) (test code = 38127-4) 71.4 38.7-80.0 [facility]enLymphocytes (%) (Auto)2018-08-04 05:06:00 * Test Item Value Reference Range Interpretation Comments Lymphocytes (%) (Auto) (test code = 736-9) 16.8 18.0-39.1 L [facility]enMonocytes (%) (Auto)2018-08-04 05:06:00* Test Item Value Reference Range Interpretation Comments Monocytes (%) (Auto) (test code = 5905-5) 7.3 4.4-11.3 [facility]enEosinophils (%) (Auto)2018-08-04 05:06:00 * Test Item Value Reference Range Interpretation Comments Eosinophils (%) (Auto) (test code = 713-8) 3.2 0.0-6.0 [facility]enBasophils (%) (Auto)2018-08-04 05:06:00* Test Item Value Reference Range Interpretation Comments Basophils (%) (Auto) (test code = 706-2) 0.1 0.0-1.0 [facility]enIM GRANULOCYTES %2018-08-04 05:06:00* Test Item Value Reference Range Interpretation Comments IM GRANULOCYTES % (test code = IM GRANULOCYTES %) 1.2 0.0- 1.0 H [facility]enNeutrophils # (Auto)2018-08-04 05:06:00* Test Item Value Reference Range Interpretation Comments Neutrophils # (Auto) (test code = 751-8) 5.9 2.1-6.9 [facility]enLymphocytes # (Auto)2018-08-04 05:06:00* Test Item Value Reference Range Interpretation Comments Lymphocytes # (Auto) (test code = 38791-2) 1.4 1.0-3.2 [facility]enMonocytes # (Auto)2018-08-04 05:06:00* Test Item Value Reference Range Interpretation Comments Monocytes # (Auto) (test code = 742-7) 0.6 0.2-0.8 [facility]enEosinophils # (Auto)2018-08-04 05:06:00* Test Item Value Reference Range Interpretation Comments Eosinophils # (Auto) (test code = 711-2) 0.3 0.0-0.4 [facility]enBasophils # (Auto)2018-08-04 05:06:00* Test Item Value Reference Range Interpretation Comments Basophils # (Auto) (test code = 704-7) 0.0 0.0-0.1 [facility] HarlingenAbsolute Immature Granulocyte (auto 2018-08-04 05:06:00* Test Item Value Reference Range Interpretation Comments Absolute Immature Granulocyte (auto (melina t code = Absolute Immature Granulocyte (auto) 0.10 0-0.1 [facility] HarlingenTotal Fgmyrnikz5845-26-74 15:15:00* Test Item Value Reference Range Interpretation Comments Total Bilirubin (test code = 1975-2) 0.2 0.2-1.2 [facility] HarlingenAspartate Amino Transf (AST/SGOT) 2018-08-03 15:15:00* Test Item Value Reference Range Interpretation Comments Aspartate Amino Transf (AST/SGOT) (test code = Aspartate Amino Transf (AST/SGOT)) 8 5-34 [facility]lingenAlanine Aminotransferase (ALT/SGPT) 2018-08-03 15:15:00* Test Item Value Reference Range Interpretation Comments Alanine Aminotransferase (ALT/SGPT) (test code = 1742-6) < 6 0-55 [facility]enTotal Xxjtaza9337-85-85 15:15:00* Test Item Value Reference Range Interpretation Comments Total Protein (test code = 2885-2) 4.8 6.5-8.1 L [facility] HarlingenAlbumin2018-11-15 15:15:00* Test Item Value Reference Range Interpretation Comments Albumin (test code = 1751-7) 2.4 3.5-5.0 L [facility]enGlobulin2018-11-15 15:15:00* Test Item Value Reference Range Interpretation Comments Globulin (test code = 51745-6) 2.4 2.3-3.5 [facility]enAlbumin/Globulin Mgxsp3701-71-17 15:15:00 * Test Item Value Reference Range Interpretation Comments Albumin/Globulin Ratio (test code = 1759-0) 1.0 0.8-2.0 [facility]enAlkaline Mkyhkbpftdo2212-90-72 15:15:00* Test Item Value Reference Range Interpretation Comments Alkaline Phosphatase (test code = 6768-6) 89 40-150 [facility] HarlingenDifferential Total Cells Counted 2018-08-03 07:30:00* Test Item Value Reference Range Interpretation Comments Differential Total Cells Counted (test code = Differjesus tial Total Cells Counted) 100 [facility]enNeutrophils % (Manual)2018-08-03 07:30:00 * Test Item Value Reference Range Interpretation Comments Neutrophils % (Manual) (test code = 97183-9) 85 40-74 H [facility]enLymphocytes % (Manual)2018-08-03 07:30:00 * Test Item Value Reference Range Interpretation Comments Lymphocytes % (Manual) (test code = 737-7) 8 19-48 L [facility]enMonocytes % (Manual)2018-08-03 07:30:00* Test Item Value Reference Range Interpretation Comments Monocytes % (Manual) (test code = 744-3) 7 3.4-9.0 [facility] HarlingenPlatelet Vslvhhnp6767-24-25 07:30:00* Test Item Value Reference Range Interpretation Comments Platelet Estimate (test code = 23128-1) ADEQUATE [facility] HarlingenPlatelet Morphology Bglunbb4185-56-04 07:30:00* Test Item Value Reference Range Interpretation Comments Platelet Morphology Comment (test code = 19284-3) MODERATE LARGE [facility]enRed Cell Morphology Mjrwkjb1648-37-65 07:30:00* Test Item Value Reference Range Interpretation Comments Red Cell Morphology Comment (test code = 6742-1) NORMAL [facility] HarlingenBlood Oieugoz6221-55-39 23:18:00* Test Item Value Reference Range Interpretation Comments Blood Culture (test code = 92612471) NO GROWTH AFTER 72 HOURS [facility] HarlingenUrine Gfsxcyi6578-04-90 10:13:00* Test Item Value Reference Range Interpretation Comments Urine Culture (test code = 630-4) Organism: KLEBSIELLA PNEUMONIAE-E L [facility] HarlingenUrine Zbiatow8084-42-13 10:13:00* Test Item Value Reference Range Interpretation Comments Urine Culture (test code = 630-4) Organism: KLEBSIELLA PNEUMONIAE-E L [facility] HarlingenUrine Pyedynn6520-03-01 10:13:00* Test Item Value Reference Range Interpretation Comments Urine Culture (test code = 630-4) Organism: KLEBSIELLA PNEUMONIAE-E L [facility] HarlingenUrine Iceimom3289-61-16 10:13:00* Test Item Value Reference Range Interpretation Comments Urine Culture (test code = 630-4) Organism: KLEBSIELLA PNEUMONIAE-E L [facility]PE[facility] CJN2156-02-27 11:04:00 [facility] [address] [place] [address] Patient Name: MOJGAN CUMMINGS MR #: [id number] : 1950 Age/Sex: 68/F Req #: [id number] Adm Physician: ILAN STEIN MD Ordered by: PHOENIX CIFUENTES MD Report #: [id number] Location: MED/SURG2 Room/Bed: [facility] Procedure: 1113-0 004 IR/SPECIAL PROCEDURE IN WOOD [employer] MILLER Exam Date: Time: REPORT STATUS: Signed P [...] was obtained from the patient. A 5 Tunisian dilator was placed into the tract. Contrast [...] then placed into the stomach. An 18 Tunisian [employer] balloon retention G-tube was then placed [...] 1036 COPY TO: PHOENIX CIFUENTES MD IR TYIBIIV6332-28-47 11:04:00 [place] [address] Patient Name: MOJGAN CUMMINGS MR #: [id number] : 1950 Age/Sex: 68/F Req #: [id number] Adm Physician: ILAN STEIN MD Ordered by: PHOENIX CIFUENTES MD Report #: [id number] Location: MED/SURG2 Room/Bed: [facility] Procedure: 1113-0 003 DX/IR CONSULT Exam Date: Exam Time: REPORT STATUS: Signed Procedure: G-tube ca theter replacement Medications: Fentanyl 50 mcg intravenous. The patient's vital signs, including pulse oximetry, were continuously monitored [facility] erventional radiology nurse. Fluoroscopy time: 2.6 minutes. Dose area p roduct: 1602.1 cGycm2 Contrast used: None Estimated blood loss: Minimal. Complications: No immediate. Procedure in detail: Informed consent f or the procedure was obtained from the patient. A 5 Tunisian dilator was placed into the tract. Contrast [...] then placed into the stomach. An 18 Tunisian [employer] ient[employer] balloon retention G-tube was then [...] CIFUENTES MD Clostridium Difficile Toxin A & V0625-49-78 12:43:00* Test Item Value Reference Range Interpretation Comments Clostridium Difficile Toxin A & B (test code = 215343750) POSI TIVE NEGATIVE H Results called to RAMYA BOSE at 1242 on 07/31/18 by Mark Aguirre. RB OK.R esults called to TORITO ARCOS () in infection control at 1242 on 07/31/18 by Heather Aguirre.Testing on stool aspirate specimens is outside supervisor uranium processing claims since specimen type not validated on this assay.[facility]enLactic Acid Zafun0637-30-25 23:44:00* Test Item Value Reference Range Interpretation Comments Lactic Acid Level (test code = Lactic Acid Level) 9.3 4.5- 19.8 [facility] HarlingenLactic Acid Vcsme8232-57-83 23:44:00* Test Item Value Reference Range Interpretation Comments Lactic Acid Level (test code = Lactic Acid Level) 9.3 4.5- 19.8 [facility]enLactic Acid Krwms4067-41-52 23:44:00* Test Item Value Reference Range Interpretation Comments Lactic Acid Level (test code = Lactic Acid Level) 9.3 4.5- 19.8 [facility] HarlingenLactic Acid Xxlfn7847-46-31 23:44:00* Test Item Value Reference Range Interpretation Comments Lactic Acid Level (test code = Lactic Acid Level) 9.3 4.5- 19.8 [facility]enCreatine Kinase FL6612-63-00 22:32:00* Test Item Value Reference Range Interpretation Comments Creatine Kinase MB (test code = 04336-8) 0.30 0-5.0 [facility]enTroponin H6760-28-75 22:32:00* Test Item Value Reference Range Interpretation Comments Troponin I (test code = SSS7219) < 0.001 0-0.300 [facility] HarlingenUrine HKP2471-36-33 22:27:00* Test Item Value Reference Range Interpretation Comments Urine WBC (test code = 5821-4) >50 0-5 H [facility] HarlingenUrine CZO4300-70-08 22:27:00* Test Item Value Reference Range Interpretation Comments Urine RBC (test code = 75863-9) 6-10 0-5 H [facility]enUrine Quvdqcxj9350-61-20 22:27:00* Test Item Value Reference Range Interpretation Comments Urine Bacteria (test code = 15345-3) MANY NONE H [facility] Har[facility]enUrine Epithelial Pccuq7842-97-81 22:27:00 * Test Item Value Reference Range Interpretation Comments Urine Epithelial Cells (test code = 90069-3) MODERATE NONE [facility]enCreatine Ufekrr6345-62-05 22:27:00* Test Item Value Reference Range Interpretation Comments Creatine Kinase (test code = 2157-6) 14 29-168 L [facility] HarlingenUrine IJT0996-08-56 22:27:00* Test Item Value Reference Range Interpretation Comments Urine WBC (test code = 5821-4) >50 0-5 H [facility]lingenUrine AVQ7541-69-30 22:27:00* Test Item Value Reference Range Interpretation Comments Urine RBC (test code = 08571-6) 6-10 0-5 H [facility]enUrine Vodgpgag2987-21-49 22:27:00* Test Item Value Reference Range Interpretation Comments Urine Bacteria (test code = 35429-9) MANY NONE H [facility]enUrine Epithelial Ccama3507-97-27 22:27:00 * Test Item Value Reference Range Interpretation Comments Urine Epithelial Cells (test code = 91463-6) MODERATE NONE [facility]enUrine GIS4419-48-16 22:27:00* Test Item Value Reference Range Interpretation Comments Urine WBC (test code = 5821-4) >50 0-5 H [facility]enUrine BTN0499-98-40 22:27:00* Test Item Value Reference Range Interpretation Comments Urine RBC (test code = 15301-8) 6-10 0-5 H [facility]enUrine Knpxcthr1338-05-39 22:27:00* Test Item Value Reference Range Interpretation Comments Urine Bacteria (test code = 30827-2) MANY NONE [facility] Ep[facility]helial Zwzmo5593-05-52 22:27:00 * Test Item Value Reference Range Interpretation Comments Urine Epithelial Cells (test code = 10215-8) MODERATE NONE [facility]enUrine Pbtkz4108-53-93 22:21:00* Test Item Value Reference Range Interpretation Comments Urine Color (test code = 5778-6) YELLOW YELLOW [facility]enUrine Erqzdje2062-57-31 22:21:00* Test Item Value Reference Range Interpretation Comments Urine Clarity (test code = 80230-7) TURBID CLEAR [facility] CenterU[facility] Specific Rsaphic7866-91-48 22:21:00 * Test Item Value Reference Range Interpretation Comments Urine Specific Welling (test code = 5811-5) 1.030 1.010-1.02 5 H [facility]enUrine fM8407-54-40 22:21:00* Test Item Value Reference Range Interpretation Comments Urine pH (test code = 62301-4) 6 5-7 [facility]enU[facility] Leukocyte Evobhllb8323-35-65 22:21:00* Test Item Value Reference Range Interpretation Comments Urine Leukocyte Esterase (test code = 5799-2) 2+ NEGATIVE [facility] Whcwlvb5298-54-73 22:21:00* Test Item Value Reference Range Interpretation Comments Urine Nitrite (test code = 47745-5) POSITIVE NEGATIVE [facility] CenterU[facility] Jbbwscb2169-85-35 22:21:00* Test Item Value Reference Range Interpretation Comments Urine Protein (test code = 5804-0) 1+ NEGATIVE [facility] CenterU[facility] Glucose (UA)2018-07-30 22:21:00* Test Item Value Reference Range Interpretation Comments Urine Glucose (UA) (test code = 2349-9) NEGATIVE NEGATIVE [facility]enUrine Fmysgaz6281-42-62 22:21:00* Test Item Value Reference Range Interpretation Comments Urine Ketones (test code = 13743-1) TRACE NEGATIVE [facility] Eiodidlvubjp5552-16-93 22:21:00* Test Item Value Reference Range Interpretation Comments Urine Urobilinogen (test code = 87397-0) 0.2 0.2-1 [facility]enUrine Zgijsjivw6465-38-57 22:21:00* Test Item Value Reference Range Interpretation Comments Urine Bilirubin (test code = 1978-6) NEGATIVE NEGATIVE [facility]enU[facility] Hhcuh9728-43-10 22:21:00* Test Item Value Reference Range Interpretation Comments Urine Blood (test code = 48888-1) TRACE NEGATIVE H [facility]enUrine Pfshy4653-29-01 22:21:00* Test Item Value Reference Range Interpretation Comments Urine Color (test code = 5778-6) YELLOW YELLOW [facility]enUrine Wccnopp1080-35-99 22:21:00* Test Item Value Reference Range Interpretation Comments Urine Clarity (test code = 83046-8) TURBID CLEAR [facility] CenterU[facility] Specific Zfxsyqv6522-14-98 22:21:00 * Test Item Value Reference Range Interpretation Comments Urine Specific [place] (test code = 5811-5) 1.030 1.010-1.02 5 H [facility]enUrine mA3634-53-08 22:21:00* Test Item Value Reference Range Interpretation Comments Urine pH (test code = 60552-7) 6 5-7 [facility]enU[facility] Leukocyte Wvhvyerf6944-69-44 22:21:00* Test Item Value Reference Range Interpretation Comments Urine Leukocyte Esterase (test code = 5799-2) 2+ NEGATIVE [facility] Ubvsawo9919-44-74 22:21:00* Test Item Value Reference Range Interpretation Comments Urine Nitrite (test code = 64667-1) POSITIVE NEGATIVE [facility] CenterU[facility] Gvhksoj9424-28-23 22:21:00* Test Item Value Reference Range Interpretation Comments Urine Protein (test code = 5804-0) 1+ NEGATIVE [facility] CenterU[facility] Glucose (UA)2018-07-30 22:21:00* Test Item Value Reference Range Interpretation Comments Urine Glucose (UA) (test code = 2349-9) NEGATIVE NEGATIVE [facility]enU[facility] Rokltux6044-55-07 22:21:00* Test Item Value Reference Range Interpretation Comments Urine Ketones (test code = 18573-5) TRACE NEGATIVE [facility] CenterU[facility] Ojogrfvckufp3475-00-69 22:21:00* Test Item Value Reference Range Interpretation Comments Urine Urobilinogen (test code = 84478-7) 0.2 0.2-1 [facility] Hmnqaldto1666-78-79 22:21:00* Test Item Value Reference Range Interpretation Comments Urine Bilirubin (test code = 1978-6) NEGATIVE NEGATIVE [facility] Qgztz0132-34-74 22:21:00* Test Item Value Reference Range Interpretation Comments Urine Blood (test code = 33554-3) TRACE NEGATIVE [facility] Newfz8817-48-82 22:21:00* Test Item Value Reference Range Interpretation Comments Urine Color (test code = 5778-6) YELLOW YELLOW [facility] Jflbney0734-28-06 22:21:00* Test Item Value Reference Range Interpretation Comments Urine Clarity (test code = 01568-4) TURBID CLEAR [facility] Xoeucmk2599-62-53 22:21:00 * Test Item Value Reference Range Interpretation Comments Urine Specific Welling (test code = 5811-5) 1.030 1.010-1.02 5 H [facility] uD0377-03-17 22:21:00* Test Item Value Reference Range Interpretation Comments Urine pH (test code = 93084-3) 6 5-7 [facility] Leukocyte Nujfkiua8898-64-04 22:21:00* Test Item Value Reference Range Interpretation Comments Urine Leukocyte Esterase (test code = 5799-2) 2+ NEGATIVE [facility] Sjvngkd6146-60-56 22:21:00* Test Item Value Reference Range Interpretation Comments Urine Nitrite (test code = 19519-0) POSITIVE NEGATIVE [facility] Itxgczx6718-17-01 22:21:00* Test Item Value Reference Range Interpretation Comments Urine Protein (test code = 5804-0) 1+ NEGATIVE [facility] Glucose (UA)2018-07-30 22:21:00* Test Item Value Reference Range Interpretation Comments Urine Glucose (UA) (test code = 2349-9) NEGATIVE NEGATIVE [facility] Tcbkipq3303-11-05 22:21:00* Test Item Value Reference Range Interpretation Comments Urine Ketones (test code = 48471-2) TRACE NEGATIVE H [facility] Nuvhoxaxydsd5857-17-54 22:21:00* Test Item Value Reference Range Interpretation Comments Urine Urobilinogen (test code = 10771-4) 0.2 0.2-1 [facility] Khjolsojk3542-69-57 22:21:00* Test Item Value Reference Range Interpretation Comments Urine Bilirubin (test code = 1978-6) NEGATIVE NEGATIVE [facility] Llhdg9213-61-86 22:21:00* Test Item Value Reference Range Interpretation Comments Urine Blood (test code = 41507-3) TRACE NEGATIVE [facility] CenterInfluenza Virus Types A,B Antigen 2018-07-30 22:18:00* Test Item Value Reference Range Interpretation Comments Influenza Virus Types A,B Antigen (test code = 12909-7) NEGATIVE NEGATIVE [facility] Virus Types A,B Antigen 2018-07-30 22:18:00* Test Item Value Reference Range Interpretation Comments Influenza Virus Types A,B Antigen (test code = 88706-9) NEGATIVE NEGATIVE [facility]en[facility]flu[facility] Virus Types A,B Antigen 2018-07-30 22:18:00* Test Item Value Reference Range Interpretation Comments Influenza Virus Types A,B Antigen (test code = 30881-5) NEGATIVE NEGATIVE [facility]en[facility]flu[facility] Virus Types A,B Antigen 2018-07-30 22:18:00* Test Item Value Reference Range Interpretation Comments Influenza Virus Types A,B Antigen (test code = 95947-3) NEGATIVE NEGATIVE [facility]en[facility]ST SINGLE (PORTABLE)2018-07-30 20:24:00 [place] [address] Patient Name: MOJGAN CUMMINGS MR #: [id number] : 1950 Age/Sex: 68/F Req #: [id number] [facility] Physician: Ordered by: PHOENIX CIFUENTES MD Report #: [id number] Location: ER Room/Bed: Procedure: 1111-00 [id number] DX/CHEST [...] 07/30/182028 COPY TO: PHOENIX CIFUENTES MD Stool Stiugdzeqrse1258-52-63 06:19:00* Test Item Value Reference Range Interpretation Comments Stool Calprotectin (test code = 81387-1) 1960 0-120 H Results verified by repeat testingConcentration Interpretation Follow- Up<16 - 50 ug/g Normal None>50 -120 ug/g Borderline Re- evaluate in 4-6 weeks >120 ug/g Abnormal Repeat as clinically indicatedPerformed at: [address] [id number] Director: Conrad Marte MD, Phone: [phone] Charlton Medical Centerol Qptbequopkgt6291-13-63 06:19:00* Test Item Value Reference Range Interpretation Comments Stool Calprotectin (test code = 16132-0) 1962 0-120 H Results verified by repeat testingConcentration Interpretation Follow- Up<16 - 50 ug/g Normal None>50 -120 ug/g Borderline Re- evaluate in 4-6 weeks >120 ug/g Abnormal Repeat as clinically indicatedPerformed at: [address] [id number] Director: Conrad Marte MD, Phone: [phone] Charlton Medical Centerol Pwmhqmoqgduy7622-97-57 06:19:00* Test Item Value Reference Range Interpretation Comments Stool Calprotectin (test code = 75453-2) 1962 0-120 H Results verified by repeat testingConcentration Interpretation Follow- Up<16 - 50 ug/g Normal None>50 -120 ug/g Borderline Re- evaluate in 4-6 weeks >120 ug/g Abnormal Repeat as clinically indicatedPerformed at: [address] [id number] Director: Conrad Marte MD, Phone: [phone] [facility] Kqldixk9978-41-96 13:07:00* Test Item Value Reference Range Interpretation Comments Urine Culture (test code = 630-4) Organism: KLEBSIELLA PNEUMONIAE-[facility] Fxynybf7597-29-88 13:07:00* Test Item Value Reference Range Interpretation Comments Urine Culture (test code = 630-4) Organism: KLEBSIELLA PNEUMONIAE-E [facility] Pbtazig8235-40-46 13:07:00* Test Item Value Reference Range Interpretation Comments Urine Culture (test code = 630-4) Organism: KLEBSIELLA PNEUMONIAE-E [facility]iscoBedside Uemyoxi1263-93-29 15:51:00* Test Item Value Reference Range Interpretation Comments Bedside Glucose (test code = 84116-9) 124 70-120 H Meter ID: [id number]lingenUrine Culture 2018-06-28 10:31:00* Test Item Value Reference Range Interpretation Comments Urine Culture (test code = 630-4) Organism: GRAM NEGATIVE SUZY [facility]lingenDifferential Total Cells Counted 2018-06-28 07:45:00* Test Item Value Reference Range Interpretation Comments Differential Total Cells Counted (test code = Differen tial Total Cells Counted) 100 [facility]enNeutrophils % (Manual)2018-06-28 07:45:00 * Test Item Value Reference Range Interpretation Comments Neutrophils % (Manual) (test code = 21244-8) 74 40-74 [facility]enLymphocytes % (Manual)2018-06-28 07:45:00 * Test Item Value Reference Range Interpretation Comments Lymphocytes % (Manual) (test code = 737-7) 21 19-48 [facility]enMonocytes % (Manual)2018-06-28 07:45:00* Test Item Value Reference Range Interpretation Comments Monocytes % (Manual) (test code = 744-3) 4 3.4-9.0 [facility]enEosinophils % (Manual)2018-06-28 07:45:00 * Test Item Value Reference Range Interpretation Comments Eosinophils % (Manual) (test code = 714-6) 1 0-7 [facility]enPlatelet Rqiytbil1329-64-20 07:45:00* Test Item Value Reference Range Interpretation Comments Platelet Estimate (test code = 72493-4) MODERATELY DECREASED [facility]enEosinophils % (Manual)2018-06-28 07:45:00 * Test Item Value Reference Range Interpretation Comments Eosinophils % (Manual) (test code = 714-6) 1 0-7 [facility]enEosinophils % (Manual)2018-06-28 07:45:00 * Test Item Value Reference Range Interpretation Comments Eosinophils % (Manual) (test code = 714-6) 1 0-7 [facility]enEosinophils % (Manual)2018-06-28 07:45:00 * Test Item Value Reference Range Interpretation Comments Eosinophils % (Manual) (test code = 714-6) 1 0-7 [facility]lingenUric Nkrn1899-63-65 07:05:00* Test Item Value Reference Range Interpretation Comments Uric Acid (test code = 3084-1) 6.0 2.5-7.0 [facility]enUric Dfzj5087-49-29 07:05:00* Test Item Value Reference Range Interpretation Comments Uric Acid (test code = 3084-1) 6.0 2.5-7.0 [facility]enUric Zaew7883-46-33 07:05:00* Test Item Value Reference Range Interpretation Comments Uric Acid (test code = 3084-1) 6.0 2.5-7.0 [facility]enUric Jlxi5855-99-30 07:05:00* Test Item Value Reference Range Interpretation Comments Uric Acid (test code = 3084-1) 6.0 2.5-7.0 [facility]enMagnesium Nzbuw8723-83-95 06:54:00* Test Item Value Reference Range Interpretation Comments Magnesium Level (test code = 94131-0) 1.7 1.3-2.1 [facility]odium Evaly0058-17-51 06:50:00* Test Item Value Reference Range Interpretation Comments Sodium Level (test code = 2951-2) 136 136-145 [facility]enPotassium Suiud6922-81-86 06:50:00* Test Item Value Reference Range Interpretation Comments Potassium Level (test code = 2823-3) 4.1 3.5-5.1 [facility]enChloride Sxdex8426-71-65 06:50:00* Test Item Value Reference Range Interpretation Comments Chloride Level (test code = 2075-0) 100 98-107 [facility]enCarbon Dioxide Jjoiu7840-18-81 06:50:00* Test Item Value Reference Range Interpretation Comments Carbon Dioxide Level (test code = 2028-9) 27 22-29 [facility] Har[facility]enAnion Gkx0226-71-09 06:50:00* Test Item Value Reference Range Interpretation Comments Anion Gap (test code = 92586-6) 13.1 8-16 [facility]enBlood Urea Uzlkcphv4561-69-53 06:50:00* Test Item Value Reference Range Interpretation Comments Blood Urea Nitrogen (test code = 3094-0) 15 7-26 [facility]enCreatinine2018-10-10 06:50:00* Test Item Value Reference Range Interpretation Comments Creatinine (test code = 2160-0) 0.61 0.57-1.11 [facility]enBUN/Creatinine Qdhcu3904-65-52 06:50:00* Test Item Value Reference Range Interpretation Comments BUN/Creatinine Ratio (test code = 3097-3) 25 6-25 [facility] HarlingenEstimat Glomerular Filtration Rate 2018-06-28 06:50:00* Test Item Value Reference Range Interpretation Comments Estimat Glomerular Filtration Rate (test code = 123787911) 60- >60 Ranges were taken from the National Kidney Disease Education Program and the [facility] Hospitalal Kidney Foundation literature.Reference ranges:60 or greater: Wzrxsc52-73 ( for 3 consecutive months): Chronic kidney disease 15 or less: Kidney failureValley Baptist Medical Center – HarlingenGlucose Tyxuu1890-02-39 06:50:00* Test Item Value Reference Range Interpretation Comments Glucose Level (test code = BQM1962) 108 74-118 [facility]enCalcium Ujvxn6367-94-72 06:50:00* Test Item Value Reference Range Interpretation Comments Calcium Level (test code = 13169-4) 8.8 8.4-10.2 [facility] HarlingenTotal Eimhuzwrt6114-12-70 06:50:00* Test Item Value Reference Range Interpretation Comments Total Bilirubin (test code = 1975-2) 0.2 0.2-1.2 [facility] HarlingenAspartate Amino Transf (AST/SGOT) 2018-06-28 06:50:00* Test Item Value Reference Range Interpretation Comments Aspartate Amino Transf (AST/SGOT) (test code = Aspartate Amino Transf (AST/SGOT)) 10 5-34 [facility] HarlingenAlanine Aminotransferase (ALT/SGPT) 2018-06-28 06:50:00* Test Item Value Reference Range Interpretation Comments Alanine Aminotransferase (ALT/SGPT) (test code = 1742-6) 6 0-55 [facility] HarlingenTotal Tkhsgim8265-05-23 06:50:00* Test Item Value Reference Range Interpretation Comments Total Protein (test code = 2885-2) 5.4 6.5-8.1 L [facility] HarlingenAlbumin2018-10-10 06:50:00* Test Item Value Reference Range Interpretation Comments Albumin (test code = 1751-7) 2.2 3.5-5.0 L [facility] HarlingenGlobulin2018-10-10 06:50:00* Test Item Value Reference Range Interpretation Comments Globulin (test code = 82559-7) 3.2 2.3-3.5 [facility]lingenAlbumin/Globulin Lchqt2595-90-81 06:50:00 * Test Item Value Reference Range Interpretation Comments Albumin/Globulin Ratio (test code = 1759-0) 0.7 0.8-2.0 L [facility] HarlingenAlkaline Rvzcsblatmv2520-93-61 06:50:00* Test Item Value Reference Range Interpretation Comments Alkaline Phosphatase (test code = 6768-6) 84 40-150 [facility] HarlingenWhite Blood Tfffe6260-65-32 06:41:00* Test Item Value Reference Range Interpretation Comments White Blood Count (test code = 6690-2) 6.31 4.8-10.8 [facility] HarlingenRed Blood Bvuar1990-24-10 06:41:00* Test Item Value Reference Range Interpretation Comments Red Blood Count (test code = 789-8) 3.80 3.6-5.1 [facility]enHemoglobin2018-10-10 06:41:00* Test Item Value Reference Range Interpretation Comments Hemoglobin (test code = 80007-2) 10.3 12.0-16.0 L [facility]enHematocrit2018-10-10 06:41:00* Test Item Value Reference Range Interpretation Comments Hematocrit (test code = 4544-3) 31.5 34.2-44.1 L [facility] HarlingenMean Corpuscular Getowv4089-74-03 06:41:00* Test Item Value Reference Range Interpretation Comments Mean Corpuscular Volume (test code = 787-2) 82.9 81-99 [facility]enMean Corpuscular Kdlqdlmjpp1775-74-12 06:41:00* Test Item Value Reference Range Interpretation Comments Mean Corpuscular Hemoglobin (test code = 785-6) 27.1 28-32 L [facility] HarlingenMean Corpuscular Hemoglobin Concent 2018-06-28 06:41:00* Test Item Value Reference Range Interpretation Comments Mean Corpuscular Hemoglobin Concent (test code = 786-4) 32.7 31-35 [facility] HarlingenRed Cell Distribution Omkks4125-06-39 06:41:00* Test Item Value Reference Range Interpretation Comments Red Cell Distribution Width (test code = 87288-4) 15.5 11.7 -14.4 H [facility] HarlingenPlatelet Baiuu4797-16-23 06:41:00* Test Item Value Reference Range Interpretation Comments Platelet Count (test code = 777-3) 83 140-360 L [facility]lingenNeutrophils (%) (Auto)2018-06-28 06:41:00 * Test Item Value Reference Range Interpretation Comments Neutrophils (%) (Auto) (test code = 46140-0) 63.1 38.7-80.0 [facility]enLymphocytes (%) (Auto)2018-06-28 06:41:00 * Test Item Value Reference Range Interpretation Comments Lymphocytes (%) (Auto) (test code = 736-9) 22.5 18.0-39.1 [facility]enMonocytes (%) (Auto)2018-06-28 06:41:00* Test Item Value Reference Range Interpretation Comments Monocytes (%) (Auto) (test code = 5905-5) 10.9 4.4-11.3 [facility]enEosinophils (%) (Auto)2018-06-28 06:41:00 * Test Item Value Reference Range Interpretation Comments Eosinophils (%) (Auto) (test code = 713-8) 1.3 0.0-6.0 [facility]enBasophils (%) (Auto)2018-06-28 06:41:00* Test Item Value Reference Range Interpretation Comments Basophils (%) (Auto) (test code = 706-2) 0.3 0.0-1.0 [facility] HarlingenIM GRANULOCYTES %2018-06-28 06:41:00* Test Item Value Reference Range Interpretation Comments IM GRANULOCYTES % (test code = IM GRANULOCYTES %) 1.9 0.0- 1.0 H [facility]enNeutrophils # (Auto)2018-06-28 06:41:00* Test Item Value Reference Range Interpretation Comments Neutrophils # (Auto) (test code = 751-8) 4.0 2.1-6.9 [facility]enLymphocytes # (Auto)2018-06-28 06:41:00* Test Item Value Reference Range Interpretation Comments Lymphocytes # (Auto) (test code = 54304-8) 1.4 1.0-3.2 [facility]enMonocytes # (Auto)2018-06-28 06:41:00* Test Item Value Reference Range Interpretation Comments Monocytes # (Auto) (test code = 742-7) 0.7 0.2-0.8 [facility]enEosinophils # (Auto)2018-06-28 06:41:00* Test Item Value Reference Range Interpretation Comments Eosinophils # (Auto) (test code = 711-2) 0.1 0.0-0.4 [facility]enBasophils # (Auto)2018-06-28 06:41:00* Test Item Value Reference Range Interpretation Comments Basophils # (Auto) (test code = 704-7) 0.0 0.0-0.1 [facility] HarlingenAbsolute Immature Granulocyte (auto 2018-06-28 06:41:00* Test Item Value Reference Range Interpretation Comments Absolute Immature Granulocyte (auto (melina t code = Absolute Immature Granulocyte (auto) 0.12 0-0.1 H [facility] SINGLE (PORTABLE)2018-06-27 14:00:00 [facility] [address] [place] [address] Patient Name: MOJGAN CUMMINGS MR #: [id number] : 1950 Age/Sex: 68/F Req #: [id number] Adm Physician: ILAN STEIN MD Ordered by: MARK ANTHONY KERNS MD Report #: [id number] Location: MED/SURG3 Room/Bed: [facility] Procedure: [id number] DX/CH EST SINGLE (PORTABLE) Exam Date: 06/27/18 [...] 2:04 PM Dictated By: RADHA ROCHA MD 1438 Transcribed By: BAMBI on 06/27/181403 COPY TO: MARK ANTHONY KERNS MD Urine ANV4229-27-78 13:55:00* Test Item Value Reference Range Interpretation Comments Urine WBC (test code = 5821-4) 0-5 0-5 [facility]enUrine BJS2409-08-39 13:55:00* Test Item Value Reference Range Interpretation Comments Urine RBC (test code = 02950-5) NONE 0-5 [facility]enUrine Skmqehrs8127-66-49 13:55:00* Test Item Value Reference Range Interpretation Comments Urine Bacteria (test code = 68078-8) MANY NONE H [facility]enUrine Epithelial Ihqoo1868-06-58 13:55:00 * Test Item Value Reference Range Interpretation Comments Urine Epithelial Cells (test code = 42814-3) NONE NONE [facility]enUrine Cnbdd1792-18-70 13:47:00* Test Item Value Reference Range Interpretation Comments Urine Color (test code = 5778-6) YELLOW YELLOW [facility]enUrine Dtftlsj8894-79-71 13:47:00* Test Item Value Reference Range Interpretation Comments Urine Clarity (test code = 01720-8) SL CLOUDY CLEAR [facility]enUrine Specific Evzkthr8429-81-84 13:47:00 * Test Item Value Reference Range Interpretation Comments Urine Specific Welling (test code = 5811-5) 1.010 1.010-1.02 5 [facility]enUrine fL2447-76-14 13:47:00* Test Item Value Reference Range Interpretation Comments Urine pH (test code = 52194-5) 5 5-7 [facility]enU[facility] Leukocyte Mcgunpai1150-78-17 13:47:00* Test Item Value Reference Range Interpretation Comments Urine Leukocyte Esterase (test code = 5799-2) TRACE NEGATIVE H [facility]enUrine Hteglgw6517-36-26 13:47:00* Test Item Value Reference Range Interpretation Comments Urine Nitrite (test code = 14340-0) NEGATIVE NEGATIVE [facility]enUrine Sidpkvm6170-23-22 13:47:00* Test Item Value Reference Range Interpretation Comments Urine Protein (test code = 5804-0) NEGATIVE NEGATIVE [facility]enUrine Glucose (UA)2018-06-27 13:47:00* Test Item Value Reference Range Interpretation Comments Urine Glucose (UA) (test code = 2349-9) NEGATIVE NEGATIVE [facility]enUrine Ldaspnm5039-28-78 13:47:00* Test Item Value Reference Range Interpretation Comments Urine Ketones (test code = 04768-1) NEGATIVE NEGATIVE [facility]enUrine Jdyyergfzybd3541-39-16 13:47:00* Test Item Value Reference Range Interpretation Comments Urine Urobilinogen (test code = 79019-0) 0.2 0.2-1 [facility]enUrine Ukiweazim9241-66-12 13:47:00* Test Item Value Reference Range Interpretation Comments Urine Bilirubin (test code = 1978-6) NEGATIVE NEGATIVE [facility]enUrine Jvsjh7616-52-86 13:47:00* Test Item Value Reference Range Interpretation Comments Urine Blood (test code = 55499-4) NEGATIVE NEGATIVE [facility] Har[facility]enClostridium Difficile Toxin A & B 2018-06-27 13:02:00* Test Item Value Reference Range Interpretation Comments Clostridium Difficile Toxin A & B (test code = 282208578) NEGATIVE NEGATIVE Testing on stool aspirate specimens is outside supervisor uranium processing claims since specime n type not validated on this assay.[facility] Platelet Morphology Mveoeju7464-08-45 12:54:00* Test Item Value Reference Range Interpretation Comments Platelet Morphology Comment (test code = 87215-6) FEW LARGE [facility]enHypochromasia2018-10-09 12:54:00* Test Item Value Reference Range Interpretation Comments Hypochromasia (test code = 728-6) SLIGHT [facility]enAnisocytosis2018-10-09 12:54:00* Test Item Value Reference Range Interpretation Comments Anisocytosis (test code = 702-1) SLIGHT [facility]enMicrocytosis2018-10-09 12:54:00* Test Item Value Reference Range Interpretation Comments Microcytosis (test code = 741-9) SLIGHT [facility]enRed Cell Morphology Rgzskyk4337-25-20 12:54:00* Test Item Value Reference Range Interpretation Comments Red Cell Morphology Comment (test code = 6742-1) [facility] 12:54:00* Test Item Value Reference Range Interpretation Comments Hypochromasia (test code = 728-6) [facility] 12:54:00* Test Item Value Reference Range Interpretation Comments Anisocytosis (test code = 702-1) [facility] 12:54:00* Test Item Value Reference Range Interpretation Comments Microcytosis (test code = 741-9) [facility]IGHT [facility]romasia[facility]-10-[facility] 12:54:00* Test Item Value Reference Range Interpretation Comments Hypochromasia (test code = 728-6) [facility]-10-09 12:54:00* Test Item Value Reference Range Interpretation Comments Anisocytosis (test code = 702-1) [facility]IGHT [facility] Centerrocy[facility]osis2018-10-09 12:54:00* Test Item Value Reference Range Interpretation Comments Microcytosis (test code = 741-9) [facility] 12:54:00* Test Item Value Reference Range Interpretation Comments Hypochromasia (test code = 728-6) [facility]2018-10-09 12:54:00* Test Item Value Reference Range Interpretation Comments Anisocytosis (test code = 702-1) [facility]IGHT [facility] Centerrocytosis2018-10-09 12:54:00* Test Item Value Reference Range Interpretation Comments Microcytosis (test code = 741-9) SLIGHT [facility] Har[facility]enFree Yuphtzghn9652-14-38 06:43:00* Test Item Value Reference Range Interpretation Comments Free Thyroxine (test code = 3024-7) 0.98 0.9-1.8 [facility]enThyroid Stimulating Hormone (TSH) 2018-06-24 06:43:00* Test Item Value Reference Range Interpretation Comments Thyroid Stimulating Hormone (TSH) (test code = 88746-9) 5.255 0.350-4.940 H [facility] Dricabnla4297-53-93 06:43:00* Test Item Value Reference Range Interpretation Comments Free Thyroxine (test code = 3024-7) 0.98 0.9-1.8 [facility]enThyroid Stimulating Hormone (TSH) 2018-06-24 06:43:00* Test Item Value Reference Range Interpretation Comments Thyroid Stimulating Hormone (TSH) (test code = 18784-4) 5.255 0.350-4.940 H [facility] Ijiayiuxl4896-83-34 06:43:00* Test Item Value Reference Range Interpretation Comments Free Thyroxine (test code = 3024-7) 0.98 0.9-1.8 [facility]enThyroid Stimulating Hormone (TSH) 2018-06-24 06:43:00* Test Item Value Reference Range Interpretation Comments Thyroid Stimulating Hormone (TSH) (test code = 42475-5) 5.255 0.350-4.940 H [facility] Zugzzcgck3926-43-26 06:43:00* Test Item Value Reference Range Interpretation Comments Free Thyroxine (test code = 3024-7) 0.98 0.9-1.8 [facility]en[facility] Hormone (TSH) 2018-06-24 06:43:00* Test Item Value Reference Range Interpretation Comments Thyroid Stimulating Hormone (TSH) (test code = 26123-7) 5.255 0.350-4.940 H [facility]enPrealbumin2018-10-05 13:20:00* Test Item Value Reference Range Interpretation Comments Prealbumin (test code = 15354-3) 18 10-36 Performed at: [facility] [employer] [id number] Director: Rashawn Green MD, Phone: [phone] HarlingenPrealbumin2018-10-05 13:20:00* Test Item Value Reference Range Interpretation Comments Prealbumin (test code = 03721-9) 18 10-36 Performed at: [address] [id number] Director: Rashawn Green MD, Phone: [phone] HarlingenPrealbumin2018-10-05 13:20:00* Test Item Value Reference Range Interpretation Comments Prealbumin (test code = 58213-4) Performed at: [address] [id number] Director: Rashawn Green MD, Phone: [phone] HarlingenPrealbumin2018-10-05 13:20:00* Test Item Value Reference Range Interpretation Comments Prealbumin (test code = 72754-0) Performed at: [address] [id number] Director: Rashawn Green MD, Phone: [phone] HarlingenPolychromasia2018-10-05 08:46:00* Test Item Value Reference Range Interpretation Comments Polychromasia (test code = 49971-7) [facility] 08:46[facility]* Test Item Value Reference Range Interpretation Comments Poikilocytosis (test code = 779-9) SLIGHT [facility]2018-10-05 08:46:00* Test Item Value Reference Range Interpretation Comments Polychromasia (test code = 42330-7) [facility]-05 08:46:00* Test Item Value Reference Range Interpretation Comments Poikilocytosis (test code = 779-9) SLIGHT [facility]2018-10-05 08:46:00* Test Item Value Reference Range Interpretation Comments Polychromasia (test code = 32204-6) [facility]2018-10-05 08:46:00* Test Item Value Reference Range Interpretation Comments Poikilocytosis (test code = 779-9) SLIGHT [facility]2018-10-05 08:46:00* Test Item Value Reference Range Interpretation Comments Polychromasia (test code = 84006-0) R [facility]enPoikilocytosis2018-10-05 08:46:00* Test Item Value Reference Range Interpretation Comments Poikilocytosis (test code = 779-9) SLIGHT [facility] HarlingenCT ABDOMEN/PELVIS U6300-85-31 16:47:00 [facility] [address] [address] Patient Name: MOJGAN CUMMINGS MR #: [id number] : 0 1950 Age/Sex: 68/F Req #: [id number] Adm Physician: ILAN STEIN MD Ordered by: SHABBIR MÉNDEZ MD Report #: [id number] Locat ion: ERHOLD Room/Bed: [place] [address] Procedure: [id number] C T/CT ABDOMEN/PELVIS W Exam Date: Exam [...] Transcribed By: BAMBI on 06/21/181653 COPY TO: SHABBIR MÉNDEZ MD Amylase Kyinm1472-64-16 14:57:00* Test Item Value Reference Range Interpretation Comments Amylase Level (test code = 1798-8) 19 25-125 L [facility]enLipase2018-10-03 14:57:00* Test Item Value Reference Range Interpretation Comments Lipase (test code = 3040-3) [facility]lingenAmylase Psald2310-75-79 14:57:00* Test Item Value Reference Range Interpretation Comments Amylase Level (test code = 1798-8) 19 25-125 L [facility] HarlingenLipase2018-10-03 14:57:00* Test Item Value Reference Range Interpretation Comments Lipase (test code = 3040-3) 15 [facility]lingenAmylase Cpbnl9993-84-05 14:57:00* Test Item Value Reference Range Interpretation Comments Amylase Level (test code = 1798-8) 19 25-125 L [facility]enLipase2018-10-03 14:57:00* Test Item Value Reference Range Interpretation Comments Lipase (test code = 3040-3) 15 [facility]lingenAmylase Vytjf8597-17-21 14:57:00* Test Item Value Reference Range Interpretation Comments Amylase Level (test code = 1798-8) 19 25-125 L [facility]enLipase2018-10-03 14:57:00* Test Item Value Reference Range Interpretation Comments Lipase (test code = 3040-3) 15 78 [facility]lingenUrine Amorphous Wmiliiav2000-39-57 14:55:00* Test Item Value Reference Range Interpretation Comments Urine Amorphous Sediment (test code = 8246-1) MODERATE FEW H [facility] HarlingenUrine Amorphous Eerknecj7544-97-59 14:55:00* Test Item Value Reference Range Interpretation Comments Urine Amorphous Sediment (test code = 8246-1) MODERATE FEW H [facility]lingenUrine Amorphous Bnmpaadv7439-61-00 14:55:00* Test Item Value Reference Range Interpretation Comments Urine Amorphous Sediment (test code = 8246-1) MODERATE FEW H [facility]enUrine Amorphous Tgvjppyu8089-55-21 14:55:00* Test Item Value Reference Range Interpretation Comments Urine Amorphous Sediment (test code = 8246-1) MODERATE FEW H [facility] HarlingenLactic Acid Uihcr6407-02-27 14:52:00* Test Item Value Reference Range Interpretation Comments Lactic Acid Level (test code = Lactic Acid Level) 19.1 4.5- 19.8 [facility] HarlingenMODIFIED BA. KIBHYQC0776-46-14 08:25:00 [facility] [address] [place] [address] Patient Name: MOJGAN CUMMINGS MR #: [id number] : 0 1950 Age/Sex: 68/F Req #: [id number] Adm Physician: ILAN STEIN MD Ordered by: Pilar Simeon NP Report #: [id number] Locati on: MED/SURG2 Room/Bed: [facility] Procedure: [id number] DX /MODIFIED BA. SWALLOW Exam Date: 06/06/18 [...] on 06/07/18824 COPY TO: PILAR SIMEON NP Bedside Ggcfgvv6308-27-40 16:21:00* Test Item Value Reference Range Interpretation Comments Bedside Glucose (test code = 07432-3) 148 70-120 H Meter ID: [id number] HarlingenBlood Culture 2018-06-06 15:04:00* Test Item Value Reference Range Interpretation Comments Blood Culture (test code = 07829668) NO GROWTH AFTER 5 DAYS, FINAL REPORT [facility]lingenBlood Nygthpu8146-72-44 15:04:00* Test Item Value Reference Range Interpretation Comments Blood Culture (test code = 13348577) NO GROWTH AFTER 5 DAYS, FINAL REPORT [facility] HarlingenDifferential Total Cells Counted 2018-06-06 07:15:00* Test Item Value Reference Range Interpretation Comments Differential Total Cells Counted (test code = Differen tial Total Cells Counted) 100 [facility]lingenNeutrophils % (Manual)2018-06-06 07:15:00 * Test Item Value Reference Range Interpretation Comments Neutrophils % (Manual) (test code = 41329-7) 67 40-74 [facility] HarlingenBand Neutrophils %2018-06-06 07:15:00* Test Item Value Reference Range Interpretation Comments Band Neutrophils % (test code = 764-1) 1 [facility]enLymphocytes % (Manual)2018-06-06 07:15:00 * Test Item Value Reference Range Interpretation Comments Lymphocytes % (Manual) (test code = 737-7) 16 19-48 L [facility]enMonocytes % (Manual)2018-06-06 07:15:00* Test Item Value Reference Range Interpretation Comments Monocytes % (Manual) (test code = 744-3) 10 3.4-9.0 H [facility]enEosinophils % (Manual)2018-06-06 07:15:00 * Test Item Value Reference Range Interpretation Comments Eosinophils % (Manual) (test code = 714-6) 3 0-7 [facility]enBasophils % (Manual)2018-06-06 07:15:00* Test Item Value Reference Range Interpretation Comments Basophils % (Manual) (test code = 44054-4) 1 0-1.5 [facility]enMyelocytes %2018-06-06 07:15:00* Test Item Value Reference Range Interpretation Comments Myelocytes % (test code = 749-2) 2 0-0 H [facility] HarlingenPlatelet Vmgbltzc2848-75-76 07:15:00* Test Item Value Reference Range Interpretation Comments Platelet Estimate (test code = 26367-0) SLIGHTLY DECREASED [facility] HarlingenPlatelet Morphology Fsaioxd9949-96-01 07:15:00* Test Item Value Reference Range Interpretation Comments Platelet Morphology Comment (test code = 24506-7) NORMAL [facility] HarlingenAnisocytosis2018-09-18 07:15:00* Test Item Value Reference Range Interpretation Comments Anisocytosis (test code = 702-1) SLIGHT [facility] HarlingenToxic Kucyynwrcyf4353-02-78 07:15:00* Test Item Value Reference Range Interpretation Comments Toxic Granulation (test code = 803-7) SLIGHT [facility] HarlingenRed Cell Morphology Pvcfdhr3826-23-96 07:15:00* Test Item Value Reference Range Interpretation Comments Red Cell Morphology Comment (test code = 6742-1) NORMAL [facility]enBand Neutrophils %2018-06-06 07:15:00* Test Item Value Reference Range Interpretation Comments Band Neutrophils % (test code = 764-1) 1 [facility]enBasophils % (Manual)2018-06-06 07:15:00* Test Item Value Reference Range Interpretation Comments Basophils % (Manual) (test code = 61800-0) 1 0-1.5 [facility]enMyelocytes %2018-06-06 07:15:00* Test Item Value Reference Range Interpretation Comments Myelocytes % (test code = 749-2) 2 0-0 H [facility] HarlingenToxic Qekiygjbwoh0985-55-48 07:15:00* Test Item Value Reference Range Interpretation Comments Toxic Granulation (test code = 803-7) SLIGHT [facility]enBand Neutrophils %2018-06-06 07:15:00* Test Item Value Reference Range Interpretation Comments Band Neutrophils % (test code = 764-1) 1 [facility]enBasophils % (Manual)2018-06-06 07:15:00* Test Item Value Reference Range Interpretation Comments Basophils % (Manual) (test code = 49108-9) 1 0-1.5 [facility]enMyelocytes %2018-06-06 07:15:00* Test Item Value Reference Range Interpretation Comments Myelocytes % (test code = 749-2) 2 0-0 H [facility] HarlingenToxic Nirqsobhyky9741-28-17 07:15:00* Test Item Value Reference Range Interpretation Comments Toxic Granulation (test code = 803-7) SLIGHT [facility]enBand Neutrophils %2018-06-06 07:15:00* Test Item Value Reference Range Interpretation Comments Band Neutrophils % (test code = 764-1) 1 [facility]enBasophils % (Manual)2018-06-06 07:15:00* Test Item Value Reference Range Interpretation Comments Basophils % (Manual) (test code = 69611-9) 1 0-1.5 [facility]enMyelocytes %2018-06-06 07:15:00* Test Item Value Reference Range Interpretation Comments Myelocytes % (test code = 749-2) 2 0-0 H [facility] HarlingenToxic Puowcmzhrso9021-34-32 07:15:00* Test Item Value Reference Range Interpretation Comments Toxic Granulation (test code = 803-7) SLIGHT [facility] Har[facility]enBand Neutrophils %2018-06-06 07:15:00* Test Item Value Reference Range Interpretation Comments Band Neutrophils % (test code = 764-1) 1 [facility]enBasophils % (Manual)2018-06-06 07:15:00* Test Item Value Reference Range Interpretation Comments Basophils % (Manual) (test code = 62264-4) 1 0-1.5 [facility]enMyelocytes %2018-06-06 07:15:00* Test Item Value Reference Range Interpretation Comments Myelocytes % (test code = 749-2) 2 0-0 H [facility] HarlingenToxic Vjivwzeuqtk7063-20-60 07:15:00* Test Item Value Reference Range Interpretation Comments Toxic Granulation (test code = 803-7) [facility]IGHT [facility] Hospitalodium Hfuaf6329-22-51 05:40:00* Test Item Value Reference Range Interpretation Comments Sodium Level (test code = 2951-2) 147 136-145 H [facility]enPotassium Dgpqa8351-53-72 05:40:00* Test Item Value Reference Range Interpretation Comments Potassium Level (test code = 2823-3) 3.5 3.5-5.1 [facility]enChloride Mukvk1264-17-19 05:40:00* Test Item Value Reference Range Interpretation Comments Chloride Level (test code = 2075-0) 118 98-107 H [facility] HarlingenCarbon Dioxide Olmgr2793-52-76 05:40:00* Test Item Value Reference Range Interpretation Comments Carbon Dioxide Level (test code = 2028-9) 20 22-29 L [facility] HarlingenAnion Ggz3326-40-00 05:40:00* Test Item Value Reference Range Interpretation Comments Anion Gap (test code = 89604-3) 12.5 8-16 [facility]enBlood Urea Qkhqbxjt7259-59-09 05:40:00* Test Item Value Reference Range Interpretation Comments Blood Urea Nitrogen (test code = 3094-0) 15 7-26 [facility] HarlingenCreatinine2018-09-18 05:40:00* Test Item Value Reference Range Interpretation Comments Creatinine (test code = 2160-0) 0.76 0.57-1.11 [facility]lingenBUN/Creatinine Gmcnj2435-06-95 05:40:00* Test Item Value Reference Range Interpretation Comments BUN/Creatinine Ratio (test code = 3097-3) 20 6-25 [facility] HarlingenEstimat Glomerular Filtration Rate 2018-06-06 05:40:00* Test Item Value Reference Range Interpretation Comments Estimat Glomerular Filtration Rate (test code = 462093416) 60- >60 Ranges were taken from the National Kidney Disease Education Program and the [facility] hospital[facility] Kidney Foundation literature.Reference ranges:60 or greater: Pdbnmf54-92 ( for 3 consecutive months): Chronic kidney disease 15 or less: Kidney failureValley [facility] Medical Center – HarlingenGlucose Erdtd7440-41-13 05:40:00* Test Item Value Reference Range Interpretation Comments Glucose Level (test code = LPD6301) 127 74-118 H [facility] HarlingenCalcium Qpdqp3313-03-69 05:40:00* Test Item Value Reference Range Interpretation Comments Calcium Level (test code = 32719-8) 8.8 8.4-10.2 [facility] HarlingenMagnesium Pcjbf0645-98-84 05:40:00* Test Item Value Reference Range Interpretation Comments Magnesium Level (test code = 90922-7) 1.5 1.3-2.1 [facility] HarlingenWhite Blood Azalf1544-19-31 05:08:00* Test Item Value Reference Range Interpretation Comments White Blood Count (test code = 6690-2) 9.75 4.8-10.8 [facility] HarlingenRed Blood Cpyah3560-74-69 05:08:00* Test Item Value Reference Range Interpretation Comments Red Blood Count (test code = 789-8) 4.36 3.6-5.1 [facility] HarlingenHemoglobin2018-09-18 05:08:00* Test Item Value Reference Range Interpretation Comments Hemoglobin (test code = 60352-5) 12.1 12.0-16.0 [facility]lingenHematocrit2018-09-18 05:08:00* Test Item Value Reference Range Interpretation Comments Hematocrit (test code = 4544-3) 37.7 34.2-44.1 [facility] HarlingenMean Corpuscular Xfvlww1931-93-23 05:08:00* Test Item Value Reference Range Interpretation Comments Mean Corpuscular Volume (test code = 787-2) 86.5 81-99 [facility] HarlingenMean Corpuscular Ksohlwmogo1612-26-91 05:08:00* Test Item Value Reference Range Interpretation Comments Mean Corpuscular Hemoglobin (test code = 785-6) 27.8 28-32 L [facility] Corpuscular Hemoglobin Concent 2018-06-06 05:08:00* Test Item Value Reference Range Interpretation Comments Mean Corpuscular Hemoglobin Concent (test code = 786-4) 32.1 31-35 [facility] HarlingenRed Cell Distribution Qexnt9603-33-66 05:08:00* Test Item Value Reference Range Interpretation Comments Red Cell Distribution Width (test code = 50800-1) 14.5 11.7 -14.4 H [facility] HarlingenPlatelet Bqoam7910-14-73 05:08:00* Test Item Value Reference Range Interpretation Comments Platelet Count (test code = 777-3) 94 140-360 L [facility] HarlingenNeutrophils (%) (Auto)2018-06-06 05:08:00 * Test Item Value Reference Range Interpretation Comments Neutrophils (%) (Auto) (test code = 67424-5) 71.3 38.7-80.0 [facility]lingenLymphocytes (%) (Auto)2018-06-06 05:08:00 * Test Item Value Reference Range Interpretation Comments Lymphocytes (%) (Auto) (test code = 736-9) 14.7 18.0-39.1 L [facility] HarlingenMonocytes (%) (Auto)2018-06-06 05:08:00* Test Item Value Reference Range Interpretation Comments Monocytes (%) (Auto) (test code = 5905-5) 7.6 4.4-11.3 [facility]enEosinophils (%) (Auto)2018-06-06 05:08:00 * Test Item Value Reference Range Interpretation Comments Eosinophils (%) (Auto) (test code = 713-8) 3.3 0.0-6.0 [facility]enBasophils (%) (Auto)2018-06-06 05:08:00* Test Item Value Reference Range Interpretation Comments Basophils (%) (Auto) (test code = 706-2) 0.4 0.0-1.0 [facility] HarlingenIM GRANULOCYTES %2018-06-06 05:08:00* Test Item Value Reference Range Interpretation Comments IM GRANULOCYTES % (test code = IM GRANULOCYTES %) 2.7 0.0- 1.0 H [facility]lingenNeutrophils # (Auto)2018-06-06 05:08:00* Test Item Value Reference Range Interpretation Comments Neutrophils # (Auto) (test code = 751-8) 7.0 2.1-6.9 H [facility]lingenLymphocytes # (Auto)2018-06-06 05:08:00* Test Item Value Reference Range Interpretation Comments Lymphocytes # (Auto) (test code = 28704-0) 1.4 1.0-3.2 [facility]lingenMonocytes # (Auto)2018-06-06 05:08:00* Test Item Value Reference Range Interpretation Comments Monocytes # (Auto) (test code = 742-7) 0.7 0.2-0.8 [facility]enEosinophils # (Auto)2018-06-06 05:08:00* Test Item Value Reference Range Interpretation Comments Eosinophils # (Auto) (test code = 711-2) 0.3 0.0-0.4 [facility]enBasophils # (Auto)2018-06-06 05:08:00* Test Item Value Reference Range Interpretation Comments Basophils # (Auto) (test code = 704-7) 0.0 0.0-0.1 [facility] HarlingenAbsolute Immature Granulocyte (auto 2018-06-06 05:08:00* Test Item Value Reference Range Interpretation Comments Absolute Immature Granulocyte (auto (melina t code = Absolute Immature Granulocyte (auto) 0.26 0-0.1 H [facility] HarlingenWRIST RIGHT 2 WCQQF5383-68-40 15:07:00 [address] [address] Patient Name: MOJGAN CUMMINGS MR #: [id number] : 0 1950 Age/Sex: 68/F Req #: [id number] Adm Physician: ILAN STEIN MD Ordered by: Pilar Simeon SHOT DROPPER Report #: [id number] Locati on: MED/SURG2 Room/Bed: 213 Procedure: [id number] DX /WRIST RIGHT 2 VIEWS Exam Date: [...] acute osseous abnormality Sign ed by: Dr. Shantlele Jha M.D. on 06/05/2018 3:09 PM Dictated By: SHANTELLE JHA MD 1509 Tr anscribed By: BAMBI on 06/05/18 1509 COPY TO: PILAR SIMEON SHOT DROPPER WRIST LEFT 2 IFYNB0886-93-10 15:07:00 [place] [address] Patient Name: MOJGAN CUMMINGS MR #: [id number] : 1950 Age/Sex: 68/F Req #: [id number] Adm Physician: ILAN STEIN MD Ordered by: Pilar Simeon SHOT DROPPER Report #: [id number] Location: [facility] Room/Bed: [facility] Procedure: [id number] DX /WRIST LEFT 2 VIEWS Exam Date: [...] 1509 Tra nscribed By: BAMBI on 06/05/18 150 COPY TO: PILAR SIMEON NP SHOULDER LEFT OJWRNOAX3090-56-99 15:06:00 [address] [address] Patient Name: MOJGAN CUMMINGS MR #: [id number] : 1950 Age/Sex: 68/F Req #: [id number] Adm Physician: ILAN STEIN MD Ordered by: Pilar Simeon NP Report #: [id number] Location: MED/SURG2 Room/Bed: [facility] Procedure: [id number] DX /SHOULDER LEFT COMPLETE Exam Date: 06/05/18 [...] MD 1507 Transcrib ed By: BAMBI on 06/05/181506 COPY TO: PILAR SIMEON NP CHEST SINGLE (PORTABLE)2018-06-05 06:54:00 [address] [address] Patient Name: MOJGAN CUMMINGS MR #: [id number] : 1950 Age/Sex: 68/F Req #: [id number] Adm Physician: ILAN STEIN MD Ordered by: BALBIR BARDALES MD Report #: [id number] Location: MED/SURG2 Room/Bed: [facility] Procedure: [id number] DX/CH EST SINGLE (PORTABLE) Exam Date: 06/05/18 [...] 06/05/18654 COPY TO: BALBIR BARDALES MD Blood Hcerxyh0438-91-25 08:28:00* Test Item Value Reference Range Interpretation Comments Blood Culture (test code = 600-7) Organism: STAPHYLOCOCCUS SP COAG NEG [facility] CenterBlood Uhxziaq5795-96-20 08:28:00* Test Item Value Reference Range Interpretation Comments Blood Culture (test code = 600-7) Organism: STAPHYLOCOCCUS SP COAG NEG [facility] Vxpmrce1927-42-46 08:28:00* Test Item Value Reference Range Interpretation Comments Blood Culture (test code = 600-7) Organism: STAPHYLOCOCCUS SP COAG NEG [facility] Kldrivy3158-83-36 08:28:00* Test Item Value Reference Range Interpretation Comments Blood Culture (test code = 600-7) Organism: STAPHYLOCOCCUS SP COAG NEG [facility] Ikmhmix2525-10-05 08:28:00* Test Item Value Reference Range Interpretation Comments Blood Culture (test code = 600-7) Organism: STAPHYLOCOCCUS SP COAG NEG [facility]lingenPELVIS AP 1-2 WINIO3763-58-85 07:07:00 [address] [place] [address] Patient Name: MOJGAN CUMMINGS MR #: [id number] : 0 1950 Age/Sex: 68/F Req #: [id number] Adm Physician: ILAN STEIN MD Ordered by: ILAN STEIN MD Report #: [id number] Locatio n: MED/SURG2 Room/Bed: [facility] Procedure: [id number] DX/ PELVIS AP 1-2 VIEWS Exam Date: [...] ILAN STEIN MD FEMUR TWO VIEW MINIMUM MHUHG2758-75-78 07:06:00 [place] [address] Patient Name: MOJGAN CUMMINGS MR #: [id number] : 0 1950 Age/Sex: 68/F Req #: [id number] Adm Physician: ILAN STEIN MD Ordered by: ILAN STEIN MD Report #: [id number] Locatio n: MED/SURG2 Room/Bed: [facility] Procedure: [id number] DX/ FEMUR TWO VIEW MINIMUM RIGHT Exam [...] TARA STEIN MD FEMUR 2 VIEWS MINIMUM KMCT4310-86-66 06:43:00 [place] [address] Patient Name: MOJGAN CUMMINGS MR #: [id number] : 1950 Age/Sex: 68/F Req #: [id number] Adm Physician: ILAN STEIN MD Ordered by: ILAN STEIN MD Report #: [id number] Location: MED/SURG2 Room/Bed: [facility] Procedure: [id number] DX/ FEMUR 2 VIEWS MINIMUM LEFT Exam Date: Exam Time: REPORT STATUS: Signed FEMUR 2 VIEWS MINIMUM LEFT HISTORY: Status p ost fall COMPARISON: 06/03/2018 pelvic x-ray and 01/13/2018 KALY[facility] WALTERS DINGS: Bones: Chronic fracture dislocation of the [...] COPY TO: ILAN STEIN MD CT BRAIN UM0733-11-78 06:17:00 [place] [address] Patient Name: MOJGAN CUMMINGS MR #: [id number] : 1950 Age/Sex: 68[id number] Req #: [id number] Adm Physician: ILAN STEIN MD Ordered by: ILAN STEIN MD Report #: [id number] Location: MED/SURG2 Room/Bed: [facility] Procedure: [id number] CT/ CT BRAIN WO Exam Date: 06/03/18 [...] STEIN MD Clostridium Difficile Toxin A & D0345-87-82 12:07:00* Test Item Value Reference Range Interpretation Comments Clostridium Difficile Toxin A & B (test code = 104775394) NEGATIVE NEGATIVE Testing on stool aspirate specimens is outside supervisor uranium processing claims since specime n type not validated on this assay.[facility] Reactive Jygfkcfolcc5507-71-34 08:04:00* Test Item Value Reference Range Interpretation Comments Reactive Lymphocytes (test code = 47024-2) 4 [facility] HarlingenHypochromasia2018-09-14 08:04:00* Test Item Value Reference Range Interpretation Comments Hypochromasia (test code = 728-6) SLIGHT [facility] HarlingenReactive Kawfyaqlpqz2567-49-36 08:04:00* Test Item Value Reference Range Interpretation Comments Reactive Lymphocytes (test code = 77810-1) 4 [facility]enReactive Zfufkcxglxy1497-99-99 08:04:00* Test Item Value Reference Range Interpretation Comments Reactive Lymphocytes (test code = 19762-9) 4 [facility]enReactive Eeygjwlfczw2070-03-68 08:04:00* Test Item Value Reference Range Interpretation Comments Reactive Lymphocytes (test code = 57103-6) 4 [facility]enReactive Rwuyqaqyzhr7586-75-21 08:04:00* Test Item Value Reference Range Interpretation Comments Reactive Lymphocytes (test code = 11973-4) 4 [facility]enCreatine Ieqldp7546-50-90 06:23:00* Test Item Value Reference Range Interpretation Comments Creatine Kinase (test code = 2157-6) 14 29-168 L [facility]enFree Zvgpkgsux4390-14-53 06:23:00* Test Item Value Reference Range Interpretation Comments Free Thyroxine (test code = 3024-7) 1.22 0.9-1.8 [facility]enThyroid Stimulating Hormone (TSH) 2018-06-02 06:23:00* Test Item Value Reference Range Interpretation Comments Thyroid Stimulating Hormone (TSH) (test code = 16268-5) 3.735 0.350-4.940 [facility]enCreatine Jfqrvx2034-85-53 06:23:00* Test Item Value Reference Range Interpretation Comments Creatine Kinase (test code = 2157-6) 14 29-168 L [facility]enCreatine Kinase ND7485-65-32 05:30:00* Test Item Value Reference Range Interpretation Comments Creatine Kinase MB (test code = 11933-0) 0.70 0-5.0 [facility]enTroponin Q0751-78-94 05:30:00* Test Item Value Reference Range Interpretation Comments Troponin I (test code = CNC8111) -0.001 0-0.300 [facility]enCreatine Kinase EV9407-35-09 05:30:00* Test Item Value Reference Range Interpretation Comments Creatine Kinase MB (test code = 40515-7) 0.70 0-5.0 [facility]enTrformerly [facility] medical centern T6217-15-58 05:30:00* Test Item Value Reference Range Interpretation Comments Troponin I (test code = IBK4914) -0.001 0-0.300 [facility]enB-Type Natriuretic Gghygwr9004-96-72 05:28:00* Test Item Value Reference Range Interpretation Comments B-Type Natriuretic Peptide (test code = 93717-6) 32.4 0-100 [facility]enB-Type Natriuretic Wzgydek8967-71-40 05:28:00* Test Item Value Reference Range Interpretation Comments B-Type Natriuretic Peptide (test code = 67418-9) 32.4 0-100 [facility]enB-Type Natriuretic Axqzgoo7867-77-71 05:28:00* Test Item Value Reference Range Interpretation Comments B-Type Natriuretic Peptide (test code = 83431-1) 32.4 0-100 [facility]enCHEST [facility]INGLE ([facility]ABLE)2018-06-01 13:10:00 [place] [address] Patient Name: MOJGAN CUMMINGS MR #: [id number] : 1950 Age/Sex: 68/F Req #: [id number] Adm Physician: Ordered by: WILIAM MARTINEZ MD Report #: [id number] Location: ER Room/Bed: Procedure: [id number] DX/CHEST SINGLE (PORTABLE) E xam Date: 06/01/18 [...] on 06/01/18 131 Transcribed By: BAMBI on 1312 COPY TO: WILIAM MARTINEZ MD Total Tnsogfwra8166-58-71 12:59:00* Test Item Value Reference Range Interpretation Comments Total Bilirubin (test code = 1975-2) 0.4 0.2-1.2 [facility]enAspartate Amino Transf (AST/SGOT) 2018-06-01 12:59:00* Test Item Value Reference Range Interpretation Comments Aspartate Amino Transf (AST/SGOT) (test code = Aspartate Amino Transf (AST/SGOT)) 11 5-34 [facility]enAlanine Aminotransferase (ALT/SGPT) 2018-06-01 12:59:00* Test Item Value Reference Range Interpretation Comments Alanine Aminotransferase (ALT/SGPT) (test code = 1742-6) 18 0-55 [facility]enTotal Hfsodda6430-48-56 12:59:00* Test Item Value Reference Range Interpretation Comments Total Protein (test code = 2885-2) 7.0 6.5-8.1 [facility]enAlbumin2018-09-13 12:59:00* Test Item Value Reference Range Interpretation Comments Albumin (test code = 1751-7) 3.3 3.5-5.0 L [facility]enGlobulin2018-09-13 12:59:00* Test Item Value Reference Range Interpretation Comments Globulin (test code = 24055-6) 3.7 2.3-3.5 H [facility]enAlbumin/Globulin Rthax1803-22-15 12:59:00 * Test Item Value Reference Range Interpretation Comments Albumin/Globulin Ratio (test code = 1759-0) 0.9 0.8-2.0 [facility]enAlkaline Oydygirzwzx3720-32-73 12:59:00* Test Item Value Reference Range Interpretation Comments Alkaline Phosphatase (test code = 6768-6) 95 40-150 [facility]lingenLactic Acid Crcig1715-27-95 12:44:00* Test Item Value Reference Range Interpretation Comments Lactic Acid Level (test code = Lactic Acid Level) 12.1 4.5- 19.8 [facility]odium Kqdtl4155-04-82 07:16:00* Test Item Value Reference Range Interpretation Comments Sodium Level (test code = 2951-2) 138 136-145 [facility]enPotassium Vempa5500-02-05 07:16:00* Test Item Value Reference Range Interpretation Comments Potassium Level (test code = 2823-3) 4.0 3.5-5.1 [facility]enChloride Qnuib9913-45-61 07:16:00* Test Item Value Reference Range Interpretation Comments Chloride Level (test code = 2075-0) 100 98-107 [facility]enCarbon Dioxide Otakd2986-37-94 07:16:00* Test Item Value Reference Range Interpretation Comments Carbon Dioxide Level (test code = 2028-9) 26 22-29 [facility] HarlingenAnion Lie6601-18-12 07:16:00* Test Item Value Reference Range Interpretation Comments Anion Gap (test code = 97413-1) 16.0 8-16 [facility]enBlood Urea Jvjkixyn5933-71-63 07:16:00* Test Item Value Reference Range Interpretation Comments Blood Urea Nitrogen (test code = 3094-0) 27 7-26 H [facility]enCreatinine2018-08-26 07:16:00* Test Item Value Reference Range Interpretation Comments Creatinine (test code = 2160-0) 0.87 0.57-1.11 [facility]enBUN/Creatinine Godoa8117-53-44 07:16:00* Test Item Value Reference Range Interpretation Comments BUN/Creatinine Ratio (test code = 3097-3) 31 6-25 H [facility]lingenEstimat Glomerular Filtration Rate 2018-05-14 07:16:00* Test Item Value Reference Range Interpretation Comments Estimat Glomerular Filtration Rate (test code = 30030-5) 60- >60 Ranges were taken from the National Kidney Disease Education Program and the [facility] Kidney Foundation literature.Reference ranges:60 or greater: Lkqqjj06-59 ( for 3 consecutive months): Chronic kidney disease 15 or less: Kidney failureVal[facility]lingenGlucose Wgvlo5935-95-50 07:16:00* Test Item Value Reference Range Interpretation Comments Glucose Level (test code = ZNI1746) 111 74-118 [facility]lingenCalcium Titge1800-63-36 07:16:00* Test Item Value Reference Range Interpretation Comments Calcium Level (test code = 59770-9) 10.8 8.4-10.2 H [facility] HarlingenTotal Alaqnzqzv0708-22-26 07:16:00* Test Item Value Reference Range Interpretation Comments Total Bilirubin (test code = 1975-2) 0.3 0.2-1.2 [facility]lingenAspartate Amino Transf (AST/SGOT) 2018-05-14 07:16:00* Test Item Value Reference Range Interpretation Comments Aspartate Amino Transf (AST/SGOT) (test code = Aspartate Amino Transf (AST/SGOT)) 28 5-34 [facility]enAlanine Aminotransferase (ALT/SGPT) 2018-05-14 07:16:00* Test Item Value Reference Range Interpretation Comments Alanine Aminotransferase (ALT/SGPT) (test code = 1742-6) 43 0-55 [facility]enTotal Qmtyudf5403-18-16 07:16:00* Test Item Value Reference Range Interpretation Comments Total Protein (test code = 2885-2) 7.6 6.5-8.1 [facility]lingenAlbumin2018-08-26 07:16:00* Test Item Value Reference Range Interpretation Comments Albumin (test code = 1751-7) 3.7 3.5-5.0 [facility]enGlobulin2018-08-26 07:16:00* Test Item Value Reference Range Interpretation Comments Globulin (test code = 29141-7) 3.9 2.3-3.5 H [facility]lingenAlbumin/Globulin Iyshj2729-03-67 07:16:00 * Test Item Value Reference Range Interpretation Comments Albumin/Globulin Ratio (test code = 1759-0) 0.9 0.8-2.0 [facility]enAlkaline Mhzzoflbnkg0701-29-91 07:16:00* Test Item Value Reference Range Interpretation Comments Alkaline Phosphatase (test code = 6768-6) 103 40-150 [facility]enProthrombin Xypi0522-70-02 07:03:00* Test Item Value Reference Range Interpretation Comments Prothrombin Time (test code = 5902-2) 13.3 11.9-14.5 [facility]lingenProthromb Time International Ratio 2018-05-14 07:03:00* Test Item Value Reference Range Interpretation Comments Prothromb Time International Ratio (test code = 6301-6) 1.09 Oral Anticoagulant Therapy INR Values:1. Low Intensity Therapy 1.5 - 2.02 . Moderate Intensity Therapy 2.0 - 3.03. High Intensity Therapy(1) 2.5 - 3. 54. High Intensity Therapy(2) 3.0 - 4.05. Panic Value INR > 5.0 [facility] HarlingenActivated Partial Thromboplast Time 2018-05-14 07:03:00* Test Item Value Reference Range Interpretation Comments Activated Partial Thromboplast Time (test code = 25152-0) 27.3 23.8-35.5 [facility]enProthrombin Cnql5516-31-27 07:03:00* Test Item Value Reference Range Interpretation Comments Prothrombin Time (test code = 5902-2) 13.3 11.9-14.5 [facility]lingenProthromb Time International Ratio 2018-05-14 07:03:00* Test Item Value Reference Range Interpretation Comments Prothromb Time International Ratio (test code = 6301-6) 1.09 Oral Anticoagulant Therapy INR Values:1. Low Intensity Therapy 1.5 - 2.02 . Moderate Intensity Therapy 2.0 - 3.03. High Intensity Therapy(1) 2.5 - 3. 54. High Intensity Therapy(2) 3.0 - 4.05. Panic Value INR > 5.0 [facility]lingenActivated Partial Thromboplast Time 2018-05-14 07:03:00* Test Item Value Reference Range Interpretation Comments Activated Partial Thromboplast Time (test code = 38434-0) 27.3 23.8-35.5 [facility]enProthrombin Dlmm3127-69-34 07:03:00* Test Item Value Reference Range Interpretation Comments Prothrombin Time (test code = 5902-2) 13.3 11.9-14.5 [facility]lingenProthromb Time International Ratio 2018-05-14 07:03:00* Test Item Value Reference Range Interpretation Comments Prothromb Time International Ratio (test code = 6301-6) 1.09 Oral Anticoagulant Therapy INR Values:1. Low Intensity Therapy 1.5 - 2.02 . Moderate Intensity Therapy 2.0 - 3.03. High Intensity Therapy(1) 2.5 - 3. 54. High Intensity Therapy(2) 3.0 - 4.05. Panic Value INR > 5.0 [facility]lingenActivated Partial Thromboplast Time 2018-05-14 07:03:00* Test Item Value Reference Range Interpretation Comments Activated Partial Thromboplast Time (test code = 35505-1) 27.3 23.8-35.5 [facility]lingenProthrombin Uekb3131-55-63 07:03:00* Test Item Value Reference Range Interpretation Comments Prothrombin Time (test code = 5902-2) 13.3 11.9-14.5 [facility]lingenProthromb Time International Ratio 2018-05-14 07:03:00* Test Item Value Reference Range Interpretation Comments Prothromb Time International Ratio (test code = 6301-6) 1.09 Oral Anticoagulant Therapy INR Values:1. Low Intensity Therapy 1.5 - 2.02 . Moderate Intensity Therapy 2.0 - 3.03. High Intensity Therapy(1) 2.5 - 3. 54. High Intensity Therapy(2) 3.0 - 4.05. Panic Value INR > 5.0 [facility]lingenActivated Partial Thromboplast Time 2018-05-14 07:03:00* Test Item Value Reference Range Interpretation Comments Activated Partial Thromboplast Time (test code = 46888-4) 27.3 23.8-35.5 [facility]lingenProthrombin Bnbj7374-28-25 07:03:00* Test Item Value Reference Range Interpretation Comments Prothrombin Time (test code = 5902-2) 13.3 11.9-14.5 [facility]lingenProthromb Time International Ratio 2018-05-14 07:03:00* Test Item Value Reference Range Interpretation Comments Prothromb Time International Ratio (test code = 6301-6) 1.09 Oral Anticoagulant Therapy INR Values:1. Low Intensity Therapy 1.5 - 2.02 . Moderate Intensity Therapy 2.0 - 3.03. High Intensity Therapy(1) 2.5 - 3. 54. High Intensity Therapy(2) 3.0 - 4.05. Panic Value INR > 5.0 [facility]lingenActivated Partial Thromboplast Time 2018-05-14 07:03:00* Test Item Value Reference Range Interpretation Comments Activated Partial Thromboplast Time (test code = 07142-9) 27.3 23.8-35.5 [facility]enProthrombin Lnam9296-49-36 07:03:00* Test Item Value Reference Range Interpretation Comments Prothrombin Time (test code = 5902-2) 13.3 11.9-14.5 [facility]enProthromb Time International Ratio 2018-05-14 07:03:00* Test Item Value Reference Range Interpretation Comments Prothromb Time International Ratio (test code = 6301-6) 1.09 Oral Anticoagulant Therapy INR Values:1. Low Intensity Therapy 1.5 - 2.02 . Moderate Intensity Therapy 2.0 - 3.03. High Intensity Therapy(1) 2.5 - 3. 54. High Intensity Therapy(2) 3.0 - 4.05. Panic Value INR > 5.0 [facility]enActivated Partial Thromboplast Time 2018-05-14 07:03:00* Test Item Value Reference Range Interpretation Comments Activated Partial Thromboplast Time (test code = 52486-7) 27.3 23.8-35.5 [facility]enWhite Blood Tbglm8131-22-67 06:55:00* Test Item Value Reference Range Interpretation Comments White Blood Count (test code = 6690-2) 7.05 4.8-10.8 [facility]enRed Blood Stxlc9529-31-31 06:55:00* Test Item Value Reference Range Interpretation Comments Red Blood Count (test code = 789-8) 4.56 3.6-5.1 [facility]enHemoglobin2018-08-26 06:55:00* Test Item Value Reference Range Interpretation Comments Hemoglobin (test code = 70132-4) 12.7 12.0-16.0 [facility]enHematocrit2018-08-26 06:55:00* Test Item Value Reference Range Interpretation Comments Hematocrit (test code = 4544-3) 40.4 34.2-44.1 [facility]enMean Corpuscular Cndafo2053-41-57 06:55:00* Test Item Value Reference Range Interpretation Comments Mean Corpuscular Volume (test code = 787-2) 88.6 81-99 [facility]enMean Corpuscular Xkxeszgyoq3732-59-63 06:55:00* Test Item Value Reference Range Interpretation Comments Mean Corpuscular Hemoglobin (test code = 785-6) 27.9 28-32 L [facility] HarlingenMean Corpuscular Hemoglobin Concent 2018-05-14 06:55:00* Test Item Value Reference Range Interpretation Comments Mean Corpuscular Hemoglobin Concent (test code = 786-4) 31.4 31-35 [facility] HarlingenRed Cell Distribution Fgggi4234-00-44 06:55:00* Test Item Value Reference Range Interpretation Comments Red Cell Distribution Width (test code = 79752-0) 13.8 11.7 -14.4 [facility]enPlatelet Tjllf1172-72-09 06:55:00* Test Item Value Reference Range Interpretation Comments Platelet Count (test code = 777-3) 57 140-360 L [facility]lingenNeutrophils (%) (Auto)2018-05-14 06:55:00 * Test Item Value Reference Range Interpretation Comments Neutrophils (%) (Auto) (test code = 03721-4) 66.7 38.7-80.0 [facility]enLymphocytes (%) (Auto)2018-05-14 06:55:00 * Test Item Value Reference Range Interpretation Comments Lymphocytes (%) (Auto) (test code = 736-9) 19.6 18.0-39.1 [facility]enMonocytes (%) (Auto)2018-05-14 06:55:00* Test Item Value Reference Range Interpretation Comments Monocytes (%) (Auto) (test code = 5905-5) 7.7 4.4-11.3 [facility]enEosinophils (%) (Auto)2018-05-14 06:55:00 * Test Item Value Reference Range Interpretation Comments Eosinophils (%) (Auto) (test code = 713-8) 5.2 0.0-6.0 [facility]enBasophils (%) (Auto)2018-05-14 06:55:00* Test Item Value Reference Range Interpretation Comments Basophils (%) (Auto) (test code = 706-2) 0.4 0.0-1.0 [facility]lingenIM GRANULOCYTES %2018-05-14 06:55:00* Test Item Value Reference Range Interpretation Comments IM GRANULOCYTES % (test code = IM GRANULOCYTES %) 0.4 0.0- 1.0 [facility]enNeutrophils # (Auto)2018-05-14 06:55:00* Test Item Value Reference Range Interpretation Comments Neutrophils # (Auto) (test code = 751-8) 4.7 2.1-6.9 [facility]enLymphocytes # (Auto)2018-05-14 06:55:00* Test Item Value Reference Range Interpretation Comments Lymphocytes # (Auto) (test code = 50798-6) 1.4 1.0-3.2 [facility]enMonocytes # (Auto)2018-05-14 06:55:00* Test Item Value Reference Range Interpretation Comments Monocytes # (Auto) (test code = 742-7) 0.5 0.2-0.8 [facility]enEosinophils # (Auto)2018-05-14 06:55:00* Test Item Value Reference Range Interpretation Comments Eosinophils # (Auto) (test code = 711-2) 0.4 0.0-0.4 [facility]enBasophils # (Auto)2018-05-14 06:55:00* Test Item Value Reference Range Interpretation Comments Basophils # (Auto) (test code = 704-7) 0.0 0.0-0.1 [facility]lingenAbsolute Immature Granulocyte (auto 2018-05-14 06:55:00* Test Item Value Reference Range Interpretation Comments Absolute Immature Granulocyte (auto (melina t code = Absolute Immature Granulocyte (auto) 0.03 0-0.1 [facility]enCHEST SINGLE (PORTABLE)2018-05-14 06:49:00 [place] [address] Patient Name: MOJGAN CUMMINGS MR #: [id number] : 1950 Age/Sex: 68/F Req #: [id number] Adm Physician: Ordered by: PHOENIX CIFUENTES MD Report #: [id number] Location: ER Room/Bed: Procedure: [id number] DX/CHEST SINGLE (PORTABL E) Exam Date: 05/14/18 Exam Time: 634 REPORT STATUS: Signed CHEST SINGLE (PORTABLE), 05/14/2018 6:17 AM Technique: ELMA ST SINGLE (PORTABLE) Comparison: 7.24.18. Clinical history: SOB Finding s: See Impression [...] 05/14/18650 COPY TO: PHOENIX CIFUENTES MD Bedside Scrguyz8042-48-33 12:17:00* Test Item Value Reference Range Interpretation Comments Bedside Glucose (test code = 17598-7) 131 70-120 H Meter ID: [id number] [facility]Bedside Glucose 2018-04-17 12:17:00* Test Item Value Reference Range Interpretation Comments Bedside Glucose (test code = 90207-6) 131 70-120 H Meter ID: [id number] [facility] Springsodium Level 2018-04-17 06:13:00* Test Item Value Reference Range Interpretation Comments Sodium Level (test code = 2951-2) 137 136-145 [facility]enPotassium Axjrj8751-36-06 06:13:00* Test Item Value Reference Range Interpretation Comments Potassium Level (test code = 2823-3) 3.7 3.5-5.1 [facility]enChloride Ihrus0183-05-90 06:13:00* Test Item Value Reference Range Interpretation Comments Chloride Level (test code = 2075-0) 97 98-107 L [facility] HarlingenCarbon Dioxide Xncql8785-28-13 06:13:00* Test Item Value Reference Range Interpretation Comments Carbon Dioxide Level (test code = 2028-9) 29 22-29 [facility] HarlingenAnion Qem7252-54-26 06:13:00* Test Item Value Reference Range Interpretation Comments Anion Gap (test code = 54749-5) 14.7 8-16 [facility]enBlood Urea Plumkzpd5627-63-24 06:13:00* Test Item Value Reference Range Interpretation Comments Blood Urea Nitrogen (test code = 3094-0) 27 7-26 H [facility]lingenCreatinine2018-07-30 06:13:00* Test Item Value Reference Range Interpretation Comments Creatinine (test code = 2160-0) 0.84 0.57-1.11 [facility]enBUN/Creatinine Uydon3272-29-04 06:13:00* Test Item Value Reference Range Interpretation Comments BUN/Creatinine Ratio (test code = 3097-3) 32 6-25 H [facility] HarlingenEstimat Glomerular Filtration Rate 2018-04-17 06:13:00* Test Item Value Reference Range Interpretation Comments Estimat Glomerular Filtration Rate (test code = 48801-5) 60- >60 Ranges were taken from the National Kidney Disease Education Program and the [facility] Kidney Foundation literature.Reference ranges:60 or greater: Dryryr21-49 ( for 3 consecutive months): Chronic kidney disease 15 or less: Kidney failureVal[facility]lingenGlucose Wpbgl7119-03-03 06:13:00* Test Item Value Reference Range Interpretation Comments Glucose Level (test code = VGJ7428) 113 74-118 [facility]lingenCalcium Uukqv7916-94-15 06:13:00* Test Item Value Reference Range Interpretation Comments Calcium Level (test code = 26110-2) 10.4 8.4-10.2 H [facility]enMagnesium Ewpnd9260-01-50 06:13:00* Test Item Value Reference Range Interpretation Comments Magnesium Level (test code = 28728-2) 1.7 1.3-2.1 [facility]enMagnesium Uduut6591-82-15 06:13:00* Test Item Value Reference Range Interpretation Comments Magnesium Level (test code = 07184-5) 1.7 1.3-2.1 [facility]enWhite Blood Utctx9985-44-40 05:52:00* Test Item Value Reference Range Interpretation Comments White Blood Count (test code = 6690-2) 8.02 4.8-10.8 [facility]enRed Blood Upqhb4350-04-79 05:52:00* Test Item Value Reference Range Interpretation Comments Red Blood Count (test code = 789-8) 4.05 3.6-5.1 [facility]enHemoglobin2018-07-30 05:52:00* Test Item Value Reference Range Interpretation Comments Hemoglobin (test code = 34655-7) 11.7 12.0-16.0 L [facility] HarlingenHematocrit2018-07-30 05:52:00* Test Item Value Reference Range Interpretation Comments Hematocrit (test code = 4544-3) 35.7 34.2-44.1 [facility]enMean Corpuscular Cnqouw1805-51-99 05:52:00* Test Item Value Reference Range Interpretation Comments Mean Corpuscular Volume (test code = 787-2) 88.1 81-99 [facility]enMean Corpuscular Yrczceutno5314-06-76 05:52:00* Test Item Value Reference Range Interpretation Comments Mean Corpuscular Hemoglobin (test code = 785-6) 28.9 28-32 [facility]lingenMean Corpuscular Hemoglobin Concent 2018-04-17 05:52:00* Test Item Value Reference Range Interpretation Comments Mean Corpuscular Hemoglobin Concent (test code = 786-4) 32.8 31-35 [facility]lingenRed Cell Distribution Nuteb6838-89-92 05:52:00* Test Item Value Reference Range Interpretation Comments Red Cell Distribution Width (test code = 71008-2) 14.2 11.7 -14.4 [facility]lingenPlatelet Wjwkf2594-25-01 05:52:00* Test Item Value Reference Range Interpretation Comments Platelet Count (test code = 777-3) 53 140-360 L [facility]lingenNeutrophils (%) (Auto)2018-04-17 05:52:00 * Test Item Value Reference Range Interpretation Comments Neutrophils (%) (Auto) (test code = 11042-2) 67.9 38.7-80.0 [facility]lingenLymphocytes (%) (Auto)2018-04-17 05:52:00 * Test Item Value Reference Range Interpretation Comments Lymphocytes (%) (Auto) (test code = 736-9) 17.3 18.0-39.1 L [facility]enMonocytes (%) (Auto)2018-04-17 05:52:00* Test Item Value Reference Range Interpretation Comments Monocytes (%) (Auto) (test code = 5905-5) 9.0 4.4-11.3 [facility]enEosinophils (%) (Auto)2018-04-17 05:52:00 * Test Item Value Reference Range Interpretation Comments Eosinophils (%) (Auto) (test code = 713-8) 5.2 0.0-6.0 [facility] (Auto)2018-04-17 05:52:00* Test Item Value Reference Range Interpretation Comments Basophils (%) (Auto) (test code = 706-2) 0.2 0.0-1.0 [facility]enIM GRANULOCYTES %2018-04-17 05:52:00* Test Item Value Reference Range Interpretation Comments IM GRANULOCYTES % (test code = IM GRANULOCYTES %) 0.4 0.0- 1.0 [facility]enNeutrophils # (Auto)2018-04-17 05:52:00* Test Item Value Reference Range Interpretation Comments Neutrophils # (Auto) (test code = 751-8) 5.4 2.1-6.9 [facility]enLymphocytes # (Auto)2018-04-17 05:52:00* Test Item Value Reference Range Interpretation Comments Lymphocytes # (Auto) (test code = 20969-2) 1.4 1.0-3.2 [facility]enMonocytes # (Auto)2018-04-17 05:52:00* Test Item Value Reference Range Interpretation Comments Monocytes # (Auto) (test code = 742-7) 0.7 0.2-0.8 [facility]Eosinophils # (Auto)2018-04-17 05:52:00* Test Item Value Reference Range Interpretation Comments Eosinophils # (Auto) (test code = 711-2) 0.4 0.0-0.4 [facility]ophils # (Auto)2018-04-17 05:52:00* Test Item Value Reference Range Interpretation Comments Basophils # (Auto) (test code = 704-7) 0.0 0.0-0.1 [facility]enAbsolute Immature Granulocyte (auto 2018-04-17 05:52:00* Test Item Value Reference Range Interpretation Comments Absolute Immature Granulocyte (auto (melina t code = Absolute Immature Granulocyte (auto) 0.03 0-0.1 [facility]enB-Type Natriuretic Liwrvem9976-63-55 06:03:00* Test Item Value Reference Range Interpretation Comments B-Type Natriuretic Peptide (test code = 20593-4) 37.3 0-100 [facility]enB-[facility] Natriuretic Naiqrkx8968-83-25 06:03:00* Test Item Value Reference Range Interpretation Comments B-Type Natriuretic Peptide (test code = 25600-8) 37.3 0-100 [facility]enClumped Kiuxrifgh7878-26-31 02:35:00* Test Item Value Reference Range Interpretation Comments Clumped Platelets (test code = 7796-6) NONE NONE [facility]enClumped Yifefqfmy4986-81-49 02:35:00* Test Item Value Reference Range Interpretation Comments Clumped Platelets (test code = 7796-6) NONE NONE [facility]enClumped Ufdsyvlpy7381-74-13 02:35:00* Test Item Value Reference Range Interpretation Comments Clumped Platelets (test code = 7796-6) NONE NONE [facility]enClumped Ffwytrakb2411-49-98 02:35:00* Test Item Value Reference Range Interpretation Comments Clumped Platelets (test code = 7796-6) NONE NONE [facility]enClumped Oiqxprfmm8974-15-34 02:35:00* Test Item Value Reference Range Interpretation Comments Clumped Platelets (test code = 7796-6) NONE NONE [facility]enClumped Mygphsgjj8720-59-53 02:35:00* Test Item Value Reference Range Interpretation Comments Clumped Platelets (test code = 7796-6) NONE NONE [facility]enClumped Odsfhkbrl0616-65-03 02:35:00* Test Item Value Reference Range Interpretation Comments Clumped Platelets (test code = 7796-6) NONE NONE [facility]enPlatelet Bcyvmlgz5292-33-57 02:34:00* Test Item Value Reference Range Interpretation Comments Platelet Estimate (test code = 40406-9) MARKEDLY DECREASED [facility]enPlatelet Morphology Fgypdip6357-27-47 02:34:00* Test Item Value Reference Range Interpretation Comments Platelet Morphology Comment (test code = 71917-1) FEW LARGE [facility]enRed Cell Morphology Axmpedh7066-78-81 02:34:00* Test Item Value Reference Range Interpretation Comments Red Cell Morphology Comment (test code = 6742-1) NORMAL [facility]enPlatelet Wlhlvmws4976-23-31 02:34:00* Test Item Value Reference Range Interpretation Comments Platelet Estimate (test code = 46034-5) MARKEDLY DECREASED [facility]enPlatelet Morphology Cmocmjf0819-15-02 02:34:00* Test Item Value Reference Range Interpretation Comments Platelet Morphology Comment (test code = 15062-3) FEW LARGE [facility]enRed Cell Morphology Fpmdzxt0828-50-31 02:34:00* Test Item Value Reference Range Interpretation Comments Red Cell Morphology Comment (test code = 6742-1) NORMAL [facility]enProthrombin Uxrl2120-09-10 02:17:00* Test Item Value Reference Range Interpretation Comments Prothrombin Time (test code = 5902-2) 12.8 11.9-14.5 [facility]enProthromb Time International Ratio 2018-04-11 02:17:00* Test Item Value Reference Range Interpretation Comments Prothromb Time International Ratio (test code = 6301-6) 1.04 Oral Anticoagulant Therapy INR Values:1. Low Intensity Therapy 1.5 - 2.02 . Moderate Intensity Therapy 2.0 - 3.03. High Intensity Therapy(1) 2.5 - 3. 54. High Intensity Therapy(2) 3.0 - 4.05. Panic Value INR > 5.0 [facility]enActivated Partial Thromboplast Time 2018-04-11 02:17:00* Test Item Value Reference Range Interpretation Comments Activated Partial Thromboplast Time (test code = 84082-5) 24.7 23.8-35.5 [facility]enCHEST SINGLE (PORTABLE)2018-04-11 02:11:00 [facility] [address] [place] [address] Patient Name: MOJGAN CUMMINGS MR #: [id number] : 1950 Age/Sex: 68/F Req #: [id number] Adm Physician: Ordered by: SHABBIR MÉNDEZ MD Report #: [id number] Location: ER Room/Bed: Procedure: [id number] DX/CHEST SINGLE (PORTABLE) Jabari byers Date: 04/11/18 Exam Time: 0147 REPORT STATUS: [...] 04/11/18211 COPY TO: SHABBIR MÉNDEZ MD Bedside Dbtoaiy3490-77-10 18:17:00* Test Item Value Reference Range Interpretation Comments Bedside Glucose (test code = 78141-4) 120 70-120 Meter ID: [id number] [facility] 2018-03-26 18:17:00* Test Item Value Reference Range Interpretation Comments Bedside Glucose (test code = 36550-4) 120 70-120 Meter ID: [id number] [facility] Clear [facility] Hospitalodium Level 2018-03-26 05:15:00* Test Item Value Reference Range Interpretation Comments Sodium Level (test code = 2951-2) 136 136-145 [facility]enPotassium Venyx0619-73-72 05:15:00* Test Item Value Reference Range Interpretation Comments Potassium Level (test code = 2823-3) 3.6 3.5-5.1 [facility]enChloride Ggymi9097-08-18 05:15:00* Test Item Value Reference Range Interpretation Comments Chloride Level (test code = 2075-0) 96 98-107 L [facility]enCarbon Dioxide Bouqq1372-23-73 05:15:00* Test Item Value Reference Range Interpretation Comments Carbon Dioxide Level (test code = 2028-9) 30 22-29 H [facility] HarlingenAnion Shh3837-32-58 05:15:00* Test Item Value Reference Range Interpretation Comments Anion Gap (test code = 76465-1) 13.6 8-16 [facility]enBlood Urea Dybvrbml0889-17-02 05:15:00* Test Item Value Reference Range Interpretation Comments Blood Urea Nitrogen (test code = 3094-0) 25 7-26 [facility]enCreatinine2018-07-08 05:15:00* Test Item Value Reference Range Interpretation Comments Creatinine (test code = 2160-0) 0.87 0.57-1.11 [facility]enBUN/Creatinine Kjink1354-96-10 05:15:00* Test Item Value Reference Range Interpretation Comments BUN/Creatinine Ratio (test code = 3097-3) 29 6-25 H [facility] HarlingenEstimat Glomerular Filtration Rate 2018-03-26 05:15:00* Test Item Value Reference Range Interpretation Comments Estimat Glomerular Filtration Rate (test code = 69258-7) 60- >60 Ranges were taken from the National Kidney Disease Education Program and the [facility] Kid[facility] Foundation literature.Reference ranges:60 or greater: Aooixc85-26 ( for 3 consecutive months): Chronic kidney disease 15 or less: Kidney failureVal[facility] – [facility]lingenGlucose Xxdzs5803-64-80 05:15:00* Test Item Value Reference Range Interpretation Comments Glucose Level (test code = FSJ0782) 136 74-118 H [facility]enCalcium Cxhoa5957-73-25 05:15:00* Test Item Value Reference Range Interpretation Comments Calcium Level (test code = 07308-8) 10.6 8.4-10.2 H [facility]enTotal Fwzxebsnz8087-45-15 05:15:00* Test Item Value Reference Range Interpretation Comments Total Bilirubin (test code = 1975-2) 0.5 0.2-1.2 [facility]enAspartate Amino Transf (AST/SGOT) 2018-03-26 05:15:00* Test Item Value Reference Range Interpretation Comments Aspartate Amino Transf (AST/SGOT) (test code = Aspartate Amino Transf (AST/SGOT)) 17 5-34 [facility]enAlanine Aminotransferase (ALT/SGPT) 2018-03-26 05:15:00* Test Item Value Reference Range Interpretation Comments Alanine Aminotransferase (ALT/SGPT) (test code = 1742-6) 14 0-55 [facility]enTotal Uchkozg7411-85-98 05:15:00* Test Item Value Reference Range Interpretation Comments Total Protein (test code = 2885-2) 6.6 6.5-8.1 [facility]enAlbumin2018-07-08 05:15:00* Test Item Value Reference Range Interpretation Comments Albumin (test code = 1751-7) 3.1 3.5-5.0 L [facility]enGlobulin2018-07-08 05:15:00* Test Item Value Reference Range Interpretation Comments Globulin (test code = 73618-3) 3.5 2.3-3.5 [facility]enAlbumin/Globulin Qvfit3432-75-40 05:15:00 * Test Item Value Reference Range Interpretation Comments Albumin/Globulin Ratio (test code = 1759-0) 0.9 0.8-2.0 [facility]enAlkaline Yadhnbqgxpx4682-06-68 05:15:00* Test Item Value Reference Range Interpretation Comments Alkaline Phosphatase (test code = 6768-6) 77 40-150 [facility] Hospitalodium Xwucm4491-20-66 05:15:00* Test Item Value Reference Range Interpretation Comments Sodium Level (test code = 2951-2) 136 136-145 [facility]enPotassium Qulit3207-00-75 05:15:00* Test Item Value Reference Range Interpretation Comments Potassium Level (test code = 2823-3) 3.6 3.5-5.1 [facility]enChloride Svrwj4780-71-48 05:15:00* Test Item Value Reference Range Interpretation Comments Chloride Level (test code = 2075-0) 96 98-107 L [facility]enCarbon Dioxide Hstej3817-64-19 05:15:00* Test Item Value Reference Range Interpretation Comments Carbon Dioxide Level (test code = 2028-9) 30 22-29 H [facility] HarlingenAnion Qvd4573-03-74 05:15:00* Test Item Value Reference Range Interpretation Comments Anion Gap (test code = 15720-2) 13.6 8-16 [facility]enBlood Urea Nrumkzkb6923-43-85 05:15:00* Test Item Value Reference Range Interpretation Comments Blood Urea Nitrogen (test code = 3094-0) 25 7-26 [facility]enCreatinine2018-07-08 05:15:00* Test Item Value Reference Range Interpretation Comments Creatinine (test code = 2160-0) 0.87 0.57-1.11 [facility]enBUN/Creatinine Guzuk4786-71-63 05:15:00* Test Item Value Reference Range Interpretation Comments BUN/Creatinine Ratio (test code = 3097-3) 29 6-25 H [facility]lingenEstimat Glomerular Filtration Rate 2018-03-26 05:15:00* Test Item Value Reference Range Interpretation Comments Estimat Glomerular Filtration Rate (test code = 86781-4) 60- >60 Ranges were taken from the National Kidney Disease Education Program and the [facility] Kid[facility] Foundation literature.Reference ranges:60 or greater: Fjbcix21-37 ( for 3 consecutive months): Chronic kidney disease 15 or less: Kidney failureVal[facility] – HarlingenGlucose Wqvry4712-38-88 05:15:00* Test Item Value Reference Range Interpretation Comments Glucose Level (test code = REN3923) 136 74-118 H [facility]enCalcium Sdnxx7664-68-38 05:15:00* Test Item Value Reference Range Interpretation Comments Calcium Level (test code = 76367-0) 10.6 8.4-10.2 H [facility]enTotal Kjojrjgjn6004-50-98 05:15:00* Test Item Value Reference Range Interpretation Comments Total Bilirubin (test code = 1975-2) 0.5 0.2-1.2 [facility]enAspartate Amino Transf (AST/SGOT) 2018-03-26 05:15:00* Test Item Value Reference Range Interpretation Comments Aspartate Amino Transf (AST/SGOT) (test code = Aspartate Amino Transf (AST/SGOT)) 17 [facility]enAlanine Aminotransferase (ALT/SGPT) 2018-03-26 05:15:00* Test Item Value Reference Range Interpretation Comments Alanine Aminotransferase (ALT/SGPT) (test code = 1742-6) 14 0-55 [facility]enTotal Pgpahkz8874-72-65 05:15:00* Test Item Value Reference Range Interpretation Comments Total Protein (test code = 2885-2) 6.6 6.5-8.1 [facility]enAlbumin2018-07-08 05:15:00* Test Item Value Reference Range Interpretation Comments Albumin (test code = 1751-7) 3.1 3.5-5.0 L [facility]enGlobulin2018-07-08 05:15:00* Test Item Value Reference Range Interpretation Comments Globulin (test code = 37027-0) 3.5 2.3-3.5 [facility]enAlbumin/Globulin Tqswl7236-06-80 05:15:00 * Test Item Value Reference Range Interpretation Comments Albumin/Globulin Ratio (test code = 1759-0) 0.9 0.8-2.0 [facility]enAlkaline Hgoexjygqxr1974-72-64 05:15:00* Test Item Value Reference Range Interpretation Comments Alkaline Phosphatase (test code = 6768-6) 77 40-150 [facility]enTotal Wwkcvpzyz2895-26-84 05:15:00* Test Item Value Reference Range Interpretation Comments Total Bilirubin (test code = 1975-2) 0.5 0.2-1.2 [facility]enAspartate Amino Transf (AST/SGOT) 2018-03-26 05:15:00* Test Item Value Reference Range Interpretation Comments Aspartate Amino Transf (AST/SGOT) (test code = Aspartate Amino Transf (AST/SGOT)) 17 [facility]enAlanine Aminotransferase (ALT/SGPT) 2018-03-26 05:15:00* Test Item Value Reference Range Interpretation Comments Alanine Aminotransferase (ALT/SGPT) (test code = 1742-6) 14 0-55 [facility]enTotal Yvhiday3043-64-47 05:15:00* Test Item Value Reference Range Interpretation Comments Total Protein (test code = 2885-2) 6.6 6.5-8.1 [facility]enAlbumin2018-07-08 05:15:00* Test Item Value Reference Range Interpretation Comments Albumin (test code = 1751-7) 3.1 3.5-5.0 L [facility]enGlobulin2018-07-08 05:15:00* Test Item Value Reference Range Interpretation Comments Globulin (test code = 54104-5) 3.5 2.3-3.5 [facility]enAlbumin/Globulin Qzqsf4213-41-99 05:15:00 * Test Item Value Reference Range Interpretation Comments Albumin/Globulin Ratio (test code = 1759-0) 0.9 0.8-2.0 [facility]enAlkaline Ljwerhwzbou8266-65-75 05:15:00* Test Item Value Reference Range Interpretation Comments Alkaline Phosphatase (test code = 6768-6) 77 40-150 [facility]enWhite Blood Tfsoc1545-57-75 04:55:00* Test Item Value Reference Range Interpretation Comments White Blood Count (test code = 6690-2) 9.18 4.8-10.8 [facility]enRed Blood Fxpqc8947-84-68 04:55:00* Test Item Value Reference Range Interpretation Comments Red Blood Count (test code = 789-8) 3.66 3.6-5.1 [facility]enHemoglobin2018-07-08 04:55:00* Test Item Value Reference Range Interpretation Comments Hemoglobin (test code = 56556-4) 10.3 12.0-16.0 L [facility]enHematocrit2018-07-08 04:55:00* Test Item Value Reference Range Interpretation Comments Hematocrit (test code = 4544-3) 33.1 34.2-44.1 L [facility]enMean Corpuscular Uswumy4426-39-89 04:55:00* Test Item Value Reference Range Interpretation Comments Mean Corpuscular Volume (test code = 787-2) 90.4 81-99 [facility]enMean Corpuscular Lnhqzomter7857-96-87 04:55:00* Test Item Value Reference Range Interpretation Comments Mean Corpuscular Hemoglobin (test code = 785-6) 28.1 28-32 [facility]enMean Corpuscular Hemoglobin Concent 2018-03-26 04:55:00* Test Item Value Reference Range Interpretation Comments Mean Corpuscular Hemoglobin Concent (test code = 786-4) 31.1 31-35 [facility]enRed Cell Distribution Okjhg1726-33-75 04:55:00* Test Item Value Reference Range Interpretation Comments Red Cell Distribution Width (test code = 08117-7) 16.3 11.7 -14.4 H [facility] HarlingenPlatelet Armca2640-05-74 04:55:00* Test Item Value Reference Range Interpretation Comments Platelet Count (test code = 777-3) 61 140-360 L [facility]enNeutrophils (%) (Auto)2018-03-26 04:55:00 * Test Item Value Reference Range Interpretation Comments Neutrophils (%) (Auto) (test code = 74291-3) 62.8 38.7-80.0 [facility]enLymphocytes (%) (Auto)2018-03-26 04:55:00 * Test Item Value Reference Range Interpretation Comments Lymphocytes (%) (Auto) (test code = 736-9) 16.6 18.0-39.1 L [facility]enMonocytes (%) (Auto)2018-03-26 04:55:00* Test Item Value Reference Range Interpretation Comments Monocytes (%) (Auto) (test code = 5905-5) 11.5 4.4-11.3 H [facility]enEosinophils (%) (Auto)2018-03-26 04:55:00 * Test Item Value Reference Range Interpretation Comments Eosinophils (%) (Auto) (test code = 713-8) 8.3 0.0-6.0 H [facility]enBasophils (%) (Auto)2018-03-26 04:55:00* Test Item Value Reference Range Interpretation Comments Basophils (%) (Auto) (test code = 706-2) 0.4 0.0-1.0 [facility]enIM GRANULOCYTES %2018-03-26 04:55:00* Test Item Value Reference Range Interpretation Comments IM GRANULOCYTES % (test code = IM GRANULOCYTES %) 0.4 0.0- 1.0 [facility]enNeutrophils # (Auto)2018-03-26 04:55:00* Test Item Value Reference Range Interpretation Comments Neutrophils # (Auto) (test code = 751-8) 5.8 2.1-6.9 [facility]enLymphocytes # (Auto)2018-03-26 04:55:00* Test Item Value Reference Range Interpretation Comments Lymphocytes # (Auto) (test code = 51144-9) 1.5 1.0-3.2 [facility]enMonocytes # (Auto)2018-03-26 04:55:00* Test Item Value Reference Range Interpretation Comments Monocytes # (Auto) (test code = 742-7) 1.1 0.2-0.8 H [facility]enEosinophils # (Auto)2018-03-26 04:55:00* Test Item Value Reference Range Interpretation Comments Eosinophils # (Auto) (test code = 711-2) 0.8 0.0-0.4 H [facility]enBasophils # (Auto)2018-03-26 04:55:00* Test Item Value Reference Range Interpretation Comments Basophils # (Auto) (test code = 704-7) 0.0 0.0-0.1 [facility]enAbsolute Immature Granulocyte (auto 2018-03-26 04:55:00* Test Item Value Reference Range Interpretation Comments Absolute Immature Granulocyte (auto (melina t code = Absolute Immature Granulocyte (auto) 0.04 0-0.1 [facility]enWhite Blood Qlbek1894-67-94 04:55:00* Test Item Value Reference Range Interpretation Comments White Blood Count (test code = 6690-2) 9.18 4.8-10.8 [facility]enRed Blood Kppsx4123-95-61 04:55:00* Test Item Value Reference Range Interpretation Comments Red Blood Count (test code = 789-8) 3.66 3.6-5.1 [facility]enHemoglobin2018-07-08 04:55:00* Test Item Value Reference Range Interpretation Comments Hemoglobin (test code = 08746-1) 10.3 12.0-16.0 L [facility]enHematocrit2018-07-08 04:55:00* Test Item Value Reference Range Interpretation Comments Hematocrit (test code = 4544-3) 33.1 34.2-44.1 L [facility]enMean Corpuscular Vojylv6035-11-03 04:55:00* Test Item Value Reference Range Interpretation Comments Mean Corpuscular Volume (test code = 787-2) 90.4 81-99 [facility]enMean Corpuscular Vjumanfaub2241-20-75 04:55:00* Test Item Value Reference Range Interpretation Comments Mean Corpuscular Hemoglobin (test code = 785-6) 28.1 28-32 [facility] Corpuscular Hemoglobin Concent 2018-03-26 04:55:00* Test Item Value Reference Range Interpretation Comments Mean Corpuscular Hemoglobin Concent (test code = 786-4) 31.1 31-35 [facility]enRed Cell Distribution Hzvul4631-98-38 04:55:00* Test Item Value Reference Range Interpretation Comments Red Cell Distribution Width (test code = 30476-9) 16.3 11.7 -14.4 H [facility]lingenPlatelet Kzlea6881-02-76 04:55:00* Test Item Value Reference Range Interpretation Comments Platelet Count (test code = 777-3) 61 140-360 L [facility]enNeutrophils (%) (Auto)2018-03-26 04:55:00 * Test Item Value Reference Range Interpretation Comments Neutrophils (%) (Auto) (test code = 93790-9) 62.8 38.7-80.0 [facility]enLymphocytes (%) (Auto)2018-03-26 04:55:00 * Test Item Value Reference Range Interpretation Comments Lymphocytes (%) (Auto) (test code = 736-9) 16.6 18.0-39.1 L [facility]enMonocytes (%) (Auto)2018-03-26 04:55:00* Test Item Value Reference Range Interpretation Comments Monocytes (%) (Auto) (test code = 5905-5) 11.5 4.4-11.3 H [facility]enEosinophils (%) (Auto)2018-03-26 04:55:00 * Test Item Value Reference Range Interpretation Comments Eosinophils (%) (Auto) (test code = 713-8) 8.3 0.0-6.0 H [facility]enBasophils (%) (Auto)2018-03-26 04:55:00* Test Item Value Reference Range Interpretation Comments Basophils (%) (Auto) (test code = 706-2) 0.4 0.0-1.0 [facility]enIM GRANULOCYTES %2018-03-26 04:55:00* Test Item Value Reference Range Interpretation Comments IM GRANULOCYTES % (test code = IM GRANULOCYTES %) 0.4 0.0- 1.0 [facility]enNeutrophils # (Auto)2018-03-26 04:55:00* Test Item Value Reference Range Interpretation Comments Neutrophils # (Auto) (test code = 751-8) 5.8 2.1-6.9 [facility]enLymphocytes # (Auto)2018-03-26 04:55:00* Test Item Value Reference Range Interpretation Comments Lymphocytes # (Auto) (test code = 83758-2) 1.5 1.0-3.2 [facility]enMonocytes # (Auto)2018-03-26 04:55:00* Test Item Value Reference Range Interpretation Comments Monocytes # (Auto) (test code = 742-7) 1.1 0.2-0.8 H [facility]enEosinophils # (Auto)2018-03-26 04:55:00* Test Item Value Reference Range Interpretation Comments Eosinophils # (Auto) (test code = 711-2) 0.8 0.0-0.4 H [facility]enBasophils # (Auto)2018-03-26 04:55:00* Test Item Value Reference Range Interpretation Comments Basophils # (Auto) (test code = 704-7) 0.0 0.0-0.1 [facility]enAbsolute Immature Granulocyte (auto 2018-03-26 04:55:00* Test Item Value Reference Range Interpretation Comments Absolute Immature Granulocyte (auto (melina t code = Absolute Immature Granulocyte (auto) 0.04 0-0.1 [facility]lingenProthrombin Etgg5326-27-06 23:03:00* Test Item Value Reference Range Interpretation Comments Prothrombin Time (test code = 5902-2) 13.1 11.9-14.5 [facility] HarlingenProthromb Time International Ratio 2018-03-25 23:03:00* Test Item Value Reference Range Interpretation Comments Prothromb Time International Ratio (test code = 6301-6) 1.07 Oral Anticoagulant Therapy INR Values:1. Low Intensity Therapy 1.5 - 2.02 . Moderate Intensity Therapy 2.0 - 3.03. High Intensity Therapy(1) 2.5 - 3. 54. High Intensity Therapy(2) 3.0 - 4.05. Panic Value INR > 5.0 [facility] Partial Thromboplast Time 2018-03-25 23:03:00* Test Item Value Reference Range Interpretation Comments Activated Partial Thromboplast Time (test code = 99714-4) 27.8 23.8-35.5 [facility]enProthrombin Zwtj8656-80-67 23:03:00* Test Item Value Reference Range Interpretation Comments Prothrombin Time (test code = 5902-2) 13.1 11.9-14.5 [facility]enProthromb Time International Ratio 2018-03-25 23:03:00* Test Item Value Reference Range Interpretation Comments Prothromb Time International Ratio (test code = 6301-6) 1.07 Oral Anticoagulant Therapy INR Values:1. Low Intensity Therapy 1.5 - 2.02 . Moderate Intensity Therapy 2.0 - 3.03. High Intensity Therapy(1) 2.5 - 3. 54. High Intensity Therapy(2) 3.0 - 4.05. Panic Value INR > 5.0 [facility]enAct[facility] Partial Thromboplast Time 2018-03-25 23:03:00* Test Item Value Reference Range Interpretation Comments Activated Partial Thromboplast Time (test code = 25959-0) 27.8 23.8-35.5 [facility]enCHEST SINGLE (PORTABLE)2018-03-25 22:55:00 [facility] [address] [place] [address] Patient Name: MOJGAN CUMMINGS MR #: [id number] : 1950 Age/Sex: 68/F Req #: [id number] Adm Physician: Ordered by: PHOENIX CIFUENTES MD Report #: [id number] Location: ER Room/Bed: Procedure: [id number] DX/CHEST SINGLE (PORTABLE) Exam Date: 03/25/18 Exam [...] 03/25/182255 COPY TO: PHOENIX CIFUENTES MD Bedside Ziewnsl5871-26-90 12:30:00* Test Item Value Reference Range Interpretation Comments Bedside Glucose (test code = 55656-4) 115 70-120 Meter ID: [id number]enWhite Blood Count 2018-03-09 06:39:00* Test Item Value Reference Range Interpretation Comments White Blood Count (test code = 6690-2) 10.42 4.8-10.8 [facility]enRed Blood Erubl4153-94-88 06:39:00* Test Item Value Reference Range Interpretation Comments Red Blood Count (test code = 789-8) 3.63 3.6-5.1 [facility]enHemoglobin2018-06-21 06:39:00* Test Item Value Reference Range Interpretation Comments Hemoglobin (test code = 41844-0) 10.0 12.0-16.0 L [facility]enHematocrit2018-06-21 06:39:00* Test Item Value Reference Range Interpretation Comments Hematocrit (test code = 4544-3) 31.5 34.2-44.1 L [facility]enMean Corpuscular Hfxvqi5493-30-93 06:39:00* Test Item Value Reference Range Interpretation Comments Mean Corpuscular Volume (test code = 787-2) 86.8 81-99 [facility]enMean Corpuscular Freeskqbdj3447-85-51 06:39:00* Test Item Value Reference Range Interpretation Comments Mean Corpuscular Hemoglobin (test code = 785-6) 27.5 28-32 L [facility] Corpuscular Hemoglobin Concent 2018-03-09 06:39:00* Test Item Value Reference Range Interpretation Comments Mean Corpuscular Hemoglobin Concent (test code = 786-4) 31.7 31-35 [facility]enRed Cell Distribution Rvjff8674-20-24 06:39:00* Test Item Value Reference Range Interpretation Comments Red Cell Distribution Width (test code = 64936-3) 16.4 11.7 -14.4 H [facility]enPlatelet Oqxjb0547-93-86 06:39:00* Test Item Value Reference Range Interpretation Comments Platelet Count (test code = 777-3) 128 140-360 L [facility]enNeutrophils (%) (Auto)2018-03-09 06:39:00 * Test Item Value Reference Range Interpretation Comments Neutrophils (%) (Auto) (test code = 60981-2) 72.6 38.7-80.0 [facility]enLymphocytes (%) (Auto)2018-03-09 06:39:00 * Test Item Value Reference Range Interpretation Comments Lymphocytes (%) (Auto) (test code = 736-9) 12.1 18.0-39.1 L [facility]enMonocytes (%) (Auto)2018-03-09 06:39:00* Test Item Value Reference Range Interpretation Comments Monocytes (%) (Auto) (test code = 5905-5) 7.9 4.4-11.3 [facility]enEosinophils (%) (Auto)2018-03-09 06:39:00 * Test Item Value Reference Range Interpretation Comments Eosinophils (%) (Auto) (test code = 713-8) 5.1 0.0-6.0 [facility]enBasophils (%) (Auto)2018-03-09 06:39:00* Test Item Value Reference Range Interpretation Comments Basophils (%) (Auto) (test code = 706-2) 0.4 0.0-1.0 [facility]enIM GRANULOCYTES %2018-03-09 06:39:00* Test Item Value Reference Range Interpretation Comments IM GRANULOCYTES % (test code = IM GRANULOCYTES %) 1.9 0.0- 1.0 H [facility]enNeutrophils # (Auto)2018-03-09 06:39:00* Test Item Value Reference Range Interpretation Comments Neutrophils # (Auto) (test code = 751-8) 7.6 2.1-6.9 H [facility]enLymphocytes # (Auto)2018-03-09 06:39:00* Test Item Value Reference Range Interpretation Comments Lymphocytes # (Auto) (test code = 74474-4) 1.3 1.0-3.2 [facility]enMonocytes # (Auto)2018-03-09 06:39:00* Test Item Value Reference Range Interpretation Comments Monocytes # (Auto) (test code = 742-7) 0.8 0.2-0.8 [facility]enEosinophils # (Auto)2018-03-09 06:39:00* Test Item Value Reference Range Interpretation Comments Eosinophils # (Auto) (test code = 711-2) 0.5 0.0-0.4 H [facility]enBasophils # (Auto)2018-03-09 06:39:00* Test Item Value Reference Range Interpretation Comments Basophils # (Auto) (test code = 704-7) 0.0 0.0-0.1 [facility]lingenAbsolute Immature Granulocyte (auto 2018-03-09 06:39:00* Test Item Value Reference Range Interpretation Comments Absolute Immature Granulocyte (auto (melina t code = Absolute Immature Granulocyte (auto) 0.20 0-0.1 [facility]odium Swdvq9046-28-82 06:34:00* Test Item Value Reference Range Interpretation Comments Sodium Level (test code = 2951-2) 138 136-145 [facility]enPotassium Jvovs4502-96-94 06:34:00* Test Item Value Reference Range Interpretation Comments Potassium Level (test code = 2823-3) 4.0 3.5-5.1 [facility]enChloride Dkgmy7618-30-70 06:34:00* Test Item Value Reference Range Interpretation Comments Chloride Level (test code = 2075-0) 101 98-107 [facility] HarlingenCarbon Dioxide Dnidx1396-70-76 06:34:00* Test Item Value Reference Range Interpretation Comments Carbon Dioxide Level (test code = 2028-9) 27 22-29 [facility] HarlingenAnion Wil6658-72-94 06:34:00* Test Item Value Reference Range Interpretation Comments Anion Gap (test code = 66995-9) 14.0 8-16 [facility]enBlood Urea Ljxgilng7551-08-09 06:34:00* Test Item Value Reference Range Interpretation Comments Blood Urea Nitrogen (test code = 3094-0) 9 7-26 [facility]lingenCreatinine2018-06-21 06:34:00* Test Item Value Reference Range Interpretation Comments Creatinine (test code = 2160-0) 0.60 0.57-1.11 [facility]enBUN/Creatinine Vabvx2444-88-65 06:34:00* Test Item Value Reference Range Interpretation Comments BUN/Creatinine Ratio (test code = 3097-3) 15 6-25 [facility] HarlingenEstimat Glomerular Filtration Rate 2018-03-09 06:34:00* Test Item Value Reference Range Interpretation Comments Estimat Glomerular Filtration Rate (test code = 63161-7) 60- >60 Ranges were taken from the National Kidney Disease Education Program and the [facility] Kid[facility] Foundation literature.Reference ranges:60 or greater: Reivuv67-21 ( for 3 consecutive months): Chronic kidney disease 15 or less: Kidney failureVal[facility] Center – HarlingenGlucose Ukskz7069-30-73 06:34:00* Test Item Value Reference Range Interpretation Comments Glucose Level (test code = MOL9946) 116 74-118 [facility] HarlingenCalcium Ifzqr4742-12-78 06:34:00* Test Item Value Reference Range Interpretation Comments Calcium Level (test code = 19375-6) 9.7 8.4-10.2 [facility]enMagnesium Dzwis8987-24-99 06:34:00* Test Item Value Reference Range Interpretation Comments Magnesium Level (test code = 77815-4) 1.3 1.3-2.1 [facility]enMagnesium Qdnoj7810-64-51 06:34:00* Test Item Value Reference Range Interpretation Comments Magnesium Level (test code = 01504-4) 1.3 1.3-2.1 [facility] Har[facility]enMagnesium Ffbad9765-80-06 06:34:00* Test Item Value Reference Range Interpretation Comments Magnesium Level (test code = 06930-0) 1.3 1.3-2.1 [facility]enCHEST SINGLE (PORTABLE)2018-03-09 06:05:00 [place] [address] Patient Name: MOJGAN CUMMINGS MR #: [id number] : 1950 Age/Sex: 68/F Req #: [id number] Adm Physician: ILAN STEIN MD Ordered by: IVETH COBIAN MD Report #: [id number] Location: [facility] Room/Bed: [place] [address] Procedure: [id number] DX/CHEST SINGLE (PORTABLE) Exam Date: Exam Time: [...] IVETH COBIAN MD CHEST SINGLE (PORTABLE)2018-03-08 14:02:00 [place] [address] Patient Name: MOJGAN CUMMINGS MR #: [id number] : 1950 Age/Sex: 68/F Req #: [id number] Adm Physician: ILAN STEIN MD Ordered by: IVETH COBIAN MD Report #: [id number] Location: [facility] Room/Bed: [place] [address] Procedure: [id number] DX/CHEST SINGLE (PORTABLE) Exam Date: 03/08/18 Exam Time: 1300 REPORT STATUS: Signed PROCEDURE: A single AP view of the c hest. COMPARISON: [facility], DX, CHEST SINGLE (PORTABLE), 03/08/2018, 6:08. INDICATIONS: [...] IVETH COBIAN MD CHEST SINGLE (PORTABLE)2018-03-08 06:31:00 [facility] [address] [place] [address] Patient Name: MOJGAN CUMMINGS MR #: [id number] : 1950 Age/Sex: 68/F Req #: [id number] Adm Physician: ILAN STEIN MD Ordered by: IVETH COBIAN MD Report #: [id number] Location: [facility] Room/Bed: [place] [address] Procedure: [id number] DX/CHEST SINGLE (PORTABLE) Exam Date: 03/08/18 Exam [...] COBIAN MD Clostridium Difficile Toxin A & [id number] 10:30:00* Test Item Value Reference Range Interpretation Comments Clostridium Difficile Toxin A & B (test code = 226202909) NEGATIVE NEGATIVE Testing on stool aspirate specimens is outside supervisor uranium processing claims since specime n type not validated on this assay.[facility] Clostridium Difficile Toxin A & [id number] 10:30:00* Test Item Value Reference Range Interpretation Comments Clostridium Difficile Toxin A & B (test code = 929439056) NEGATIVE NEGATIVE Testing on stool aspirate specimens is outside supervisor uranium processing claims since specime n type not validated on this assay.[facility] Clostridium Difficile Toxin A & [id number] 10:30:00* Test Item Value Reference Range Interpretation Comments Clostridium Difficile Toxin A & B (test code = 183833250) NEGATIVE NEGATIVE Testing on stool aspirate specimens is outside supervisor uranium processing claims since specime n type not validated on this assay.[facility] Clostridium Difficile Toxin A & [id number] 10:30:00* Test Item Value Reference Range Interpretation Comments Clostridium Difficile Toxin A & B (test code = 083801889) NEGATIVE NEGATIVE Testing on stool aspirate specimens is outside supervisor uranium processing claims since specime n type not validated on this assay.[facility] Clostridium Difficile Toxin A & [id number] 10:30:00* Test Item Value Reference Range Interpretation Comments Clostridium Difficile Toxin A & B (test code = 273800024) NEGATIVE NEGATIVE Testing on stool aspirate specimens is outside supervisor uranium processing claims since specime n type not validated on this assay.[facility] Differential Total Cells Dtbcbkh6350-59-48 07:24:00* Test Item Value Reference Range Interpretation Comments Differential Total Cells Counted (test code = Differjesus tial Total Cells Counted) 100 [facility]enNeutrophils % (Manual)2018-03-07 07:24:00 * Test Item Value Reference Range Interpretation Comments Neutrophils % (Manual) (test code = 91008-5) 72 40-74 [facility]enLymphocytes % (Manual)2018-03-07 07:24:00 * Test Item Value Reference Range Interpretation Comments Lymphocytes % (Manual) (test code = 737-7) 18 19-48 L [facility]enMonocytes % (Manual)2018-03-07 07:24:00* Test Item Value Reference Range Interpretation Comments Monocytes % (Manual) (test code = 744-3) 5 3.4-9.0 [facility]enEosinophils % (Manual)2018-03-07 07:24:00 * Test Item Value Reference Range Interpretation Comments Eosinophils % (Manual) (test code = 714-6) 4 0-7 [facility]enMetamyelocytes %2018-03-07 07:24:00* Test Item Value Reference Range Interpretation Comments Metamyelocytes % (test code = 740-1) 1 0-0 H [facility] HarlingenPlatelet Xolbgpym2748-98-43 07:24:00* Test Item Value Reference Range Interpretation Comments Platelet Estimate (test code = 03298-1) ADEQUATE [facility] HarlingenPlatelet Morphology Rogwtct2192-76-59 07:24:00* Test Item Value Reference Range Interpretation Comments Platelet Morphology Comment (test code = 58606-1) FEW GIANT [facility]lingenHypochromasia2018-06-19 07:24:00* Test Item Value Reference Range Interpretation Comments Hypochromasia (test code = 728-6) SLIGHT [facility]enPoikilocytosis2018-06-19 07:24:00* Test Item Value Reference Range Interpretation Comments Poikilocytosis (test code = 779-9) SLIGHT [facility]enAnisocytosis2018-06-19 07:24:00* Test Item Value Reference Range Interpretation Comments Anisocytosis (test code = 702-1) SLIGHT [facility]lingenRed Cell Morphology Wangzsw2093-45-50 07:24:00* Test Item Value Reference Range Interpretation Comments Red Cell Morphology Comment (test code = 6742-1) NORMAL [facility]lingenDifferential Total Cells Counted 2018-03-07 07:24:00* Test Item Value Reference Range Interpretation Comments Differential Total Cells Counted (test code = Differen tial Total Cells Counted) 100 [facility]enNeutrophils % (Manual)2018-03-07 07:24:00 * Test Item Value Reference Range Interpretation Comments Neutrophils % (Manual) (test code = 43919-0) 72 40-74 [facility]enLymphocytes % (Manual)2018-03-07 07:24:00 * Test Item Value Reference Range Interpretation Comments Lymphocytes % (Manual) (test code = 737-7) 18 19-48 L [facility]enMonocytes % (Manual)2018-03-07 07:24:00* Test Item Value Reference Range Interpretation Comments Monocytes % (Manual) (test code = 744-3) 5 3.4-9.0 [facility]enEosinophils % (Manual)2018-03-07 07:24:00 * Test Item Value Reference Range Interpretation Comments Eosinophils % (Manual) (test code = 714-6) 4 0-7 [facility]enMetamyelocytes %2018-03-07 07:24:00* Test Item Value Reference Range Interpretation Comments Metamyelocytes % (test code = 740-1) 1 0-0 H [facility] HarlingenPlatelet Ctlfaujc3782-18-40 07:24:00* Test Item Value Reference Range Interpretation Comments Platelet Estimate (test code = 17038-0) ADEQUATE [facility] HarlingenPlatelet Morphology Ydqlhqm0806-77-74 07:24:00* Test Item Value Reference Range Interpretation Comments Platelet Morphology Comment (test code = 88395-6) FEW GIANT [facility]lingenHypochromasia2018-06-19 07:24:00* Test Item Value Reference Range Interpretation Comments Hypochromasia (test code = 728-6) SLIGHT [facility]enPoikilocytosis2018-06-19 07:24:00* Test Item Value Reference Range Interpretation Comments Poikilocytosis (test code = 779-9) SLIGHT [facility]enAnisocytosis2018-06-19 07:24:00* Test Item Value Reference Range Interpretation Comments Anisocytosis (test code = 702-1) SLIGHT [facility] HarlingenRed Cell Morphology Xrgmkey7557-50-01 07:24:00* Test Item Value Reference Range Interpretation Comments Red Cell Morphology Comment (test code = 6742-1) NORMAL [facility]lingenDifferential Total Cells Counted 2018-03-07 07:24:00* Test Item Value Reference Range Interpretation Comments Differential Total Cells Counted (test code = Differen tial Total Cells Counted) 100 [facility]enNeutrophils % (Manual)2018-03-07 07:24:00 * Test Item Value Reference Range Interpretation Comments Neutrophils % (Manual) (test code = 24392-1) 72 40-74 [facility]enLymphocytes % (Manual)2018-03-07 07:24:00 * Test Item Value Reference Range Interpretation Comments Lymphocytes % (Manual) (test code = 737-7) 18 19-48 L [facility]enMonocytes % (Manual)2018-03-07 07:24:00* Test Item Value Reference Range Interpretation Comments Monocytes % (Manual) (test code = 744-3) 5 3.4-9.0 [facility]enEosinophils % (Manual)2018-03-07 07:24:00 * Test Item Value Reference Range Interpretation Comments Eosinophils % (Manual) (test code = 714-6) 4 0-7 [facility]enMetamyelocytes %2018-03-07 07:24:00* Test Item Value Reference Range Interpretation Comments Metamyelocytes % (test code = 740-1) 1 0-0 H [facility] HarlingenPlatelet Ydwedodq7142-04-67 07:24:00* Test Item Value Reference Range Interpretation Comments Platelet Estimate (test code = 85319-3) ADEQUATE [facility]lingenPlatelet Morphology Tcvzkng3734-28-29 07:24:00* Test Item Value Reference Range Interpretation Comments Platelet Morphology Comment (test code = 11841-2) FEW GIANT [facility]enHypochromasia2018-06-19 07:24:00* Test Item Value Reference Range Interpretation Comments Hypochromasia (test code = 728-6) SLIGHT [facility]enPoikilocytosis2018-06-19 07:24:00* Test Item Value Reference Range Interpretation Comments Poikilocytosis (test code = 779-9) SLIGHT [facility]enAnisocytosis2018-06-19 07:24:00* Test Item Value Reference Range Interpretation Comments Anisocytosis (test code = 702-1) SLIGHT [facility] HarlingenRed Cell Morphology Rxickpg2450-65-26 07:24:00* Test Item Value Reference Range Interpretation Comments Red Cell Morphology Comment (test code = 6742-1) NORMAL [facility]lingenDifferential Total Cells Counted 2018-03-07 07:24:00* Test Item Value Reference Range Interpretation Comments Differential Total Cells Counted (test code = Differjesus tial Total Cells Counted) 100 [facility]enNeutrophils % (Manual)2018-03-07 07:24:00 * Test Item Value Reference Range Interpretation Comments Neutrophils % (Manual) (test code = 48149-3) 72 40-74 [facility]enLymphocytes % (Manual)2018-03-07 07:24:00 * Test Item Value Reference Range Interpretation Comments Lymphocytes % (Manual) (test code = 737-7) 18 19-48 L [facility]enMonocytes % (Manual)2018-03-07 07:24:00* Test Item Value Reference Range Interpretation Comments Monocytes % (Manual) (test code = 744-3) 5 3.4-9.0 [facility]enEosinophils % (Manual)2018-03-07 07:24:00 * Test Item Value Reference Range Interpretation Comments Eosinophils % (Manual) (test code = 714-6) 4 0-7 [facility]enMetamyelocytes %2018-03-07 07:24:00* Test Item Value Reference Range Interpretation Comments Metamyelocytes % (test code = 740-1) 1 0-0 H [facility]enHypochromasia2018-06-19 07:24:00* Test Item Value Reference Range Interpretation Comments Hypochromasia (test code = 728-6) SLIGHT [facility]enPoikilocytosis2018-06-19 07:24:00* Test Item Value Reference Range Interpretation Comments Poikilocytosis (test code = 779-9) SLIGHT [facility]enAnisocytosis2018-06-19 07:24:00* Test Item Value Reference Range Interpretation Comments Anisocytosis (test code = 702-1) SLIGHT [facility]lingenDifferential Total Cells Counted 2018-03-07 07:24:00* Test Item Value Reference Range Interpretation Comments Differential Total Cells Counted (test code = Heather wagnerl Total Cells Counted) 100 [facility]enNeutrophils % (Manual)2018-03-07 07:24:00 * Test Item Value Reference Range Interpretation Comments Neutrophils % (Manual) (test code = 84872-6) 72 40-74 [facility]enLymphocytes % (Manual)2018-03-07 07:24:00 * Test Item Value Reference Range Interpretation Comments Lymphocytes % (Manual) (test code = 737-7) 18 19-48 L [facility]enMonocytes % (Manual)2018-03-07 07:24:00* Test Item Value Reference Range Interpretation Comments Monocytes % (Manual) (test code = 744-3) 5 3.4-9.0 [facility]enEosinophils % (Manual)2018-03-07 07:24:00 * Test Item Value Reference Range Interpretation Comments Eosinophils % (Manual) (test code = 714-6) 4 0-7 [facility]enMetamyelocytes %2018-03-07 07:24:00* Test Item Value Reference Range Interpretation Comments Metamyelocytes % (test code = 740-1) 1 0-0 H [facility]enHypochromasia2018-06-19 07:24:00* Test Item Value Reference Range Interpretation Comments Hypochromasia (test code = 728-6) SLIGHT [facility]enPoikilocytosis2018-06-19 07:24:00* Test Item Value Reference Range Interpretation Comments Poikilocytosis (test code = 779-9) SLIGHT [facility]enAnisocytosis2018-06-19 07:24:00* Test Item Value Reference Range Interpretation Comments Anisocytosis (test code = 702-1) SLIGHT [facility]enMetamyelocytes %2018-03-07 07:24:00* Test Item Value Reference Range Interpretation Comments Metamyelocytes % (test code = 740-1) 1 0-0 H [facility]enPoikilocytosis2018-06-19 07:24:00* Test Item Value Reference Range Interpretation Comments Poikilocytosis (test code = 779-9) SLIGHT [facility]enMetamyelocytes %2018-03-07 07:24:00* Test Item Value Reference Range Interpretation Comments Metamyelocytes % (test code = 740-1) 1 0-0 H [facility]enMetamyelocytes %2018-03-07 07:24:00* Test Item Value Reference Range Interpretation Comments Metamyelocytes % (test code = 740-1) 1 0-0 H [facility]enMetamyelocytes %2018-03-07 07:24:00* Test Item Value Reference Range Interpretation Comments Metamyelocytes % (test code = 740-1) 1 0-0 H [facility]enMetamyelocytes %2018-03-07 07:24:00* Test Item Value Reference Range Interpretation Comments Metamyelocytes % (test code = 740-1) 1 0-0 H [facility]enMyelocytes %2018-03-06 07:42:00* Test Item Value Reference Range Interpretation Comments Myelocytes % (test code = 749-2) 1 0-0 H [facility]enMyelocytes %2018-03-06 07:42:00* Test Item Value Reference Range Interpretation Comments Myelocytes % (test code = 749-2) 1 0-0 H [facility]enMyelocytes %2018-03-06 07:42:00* Test Item Value Reference Range Interpretation Comments Myelocytes % (test code = 749-2) 1 0-0 H [facility]2018[facility] 07:42:00* Test Item Value Reference Range Interpretation Comments Myelocytes % (test code = 749-2) 1 0-0 H [facility] %2018-03-06 07:42:00* Test Item Value Reference Range Interpretation Comments Myelocytes % (test code = 749-2) 1 0-0 H [facility]acteria identification in sputum by respiratory [id number] 06:16:00* Test Item Value Reference Range Interpretation Comments Sputum Culture (test code = 624-7) Organism: STAPHYLOCOCCUS AUREUS- MRSA [facility] identification in sputum by respiratory rgzidpv6259-98-99 06:16:00* Test Item Value Reference Range Interpretation Comments Sputum Culture (test code = 624-7) Organism: STAPHYLOCOCCUS AUREUS- MRSA [facility] identification in sputum by respiratory lepnjte8616-29-49 06:16:00* Test Item Value Reference Range Interpretation Comments Sputum Culture (test code = 624-7) Organism: STAPHYLOCOCCUS AUREUS- MRSA [facility] identification in sputum by respiratory rvqivru7756-82-32 06:16:00* Test Item Value Reference Range Interpretation Comments Sputum Culture (test code = 624-7) Organism: STAPHYLOCOCCUS AUREUS- MRSA [facility] identification in sputum by respiratory wtxmyqv4469-61-55 06:16:00* Test Item Value Reference Range Interpretation Comments Sputum Culture (test code = 624-7) Organism: STAPHYLOCOCCUS AUREUS- MRSA [facility] identification in sputum by respiratory hpevkft7307-89-90 06:16:00* Test Item Value Reference Range Interpretation Comments Sputum Culture (test code = 624-7) Organism: STAPHYLOCOCCUS AUREUS- MRSA [facility] identification in sputum by respiratory mjggbpo2875-32-46 06:16:00* Test Item Value Reference Range Interpretation Comments Sputum Culture (test code = 624-7) Organism: STAPHYLOCOCCUS AUREUS- [facility] Qbjzcog0489-75-38 06:16:00* Test Item Value Reference Range Interpretation Comments Sputum Culture (test code = 624-7) Organism: STAPHYLOCOCCUS AUREUS- MRSA [facility]2018-03-06 06:16:00 [place] [address] Patient Name: MOJGAN CUMMINGS MR #: [id number] : 1950 Age/Sex: 68/F Req #: [id number] Adm Physician: ILAN STEIN MD Ordered by: IVETH COBIAN MD Report #: [id number] Location: IMCU Room/Bed: IMCU 199-1 Procedure: [id number] DX/CHEST SINGLE (PORTABLE) Exam Date: 03/06/18 Exam [...] IVETH COBIAN MD CHEST SINGLE (PORTABLE)2018-03-05 06:02:00 [place] [address] Patient Name: MOJGAN CUMMINGS MR #: [id number] : 1950 Age/Sex: 68/F Req #: [id number] Adm Physician: ILAN STEIN MD Ordered by: IVETH COBIAN MD Report #: [id number] Location: ICU Room/Bed: ICU 189-1 Procedure: [id number] DX /CHEST SINGLE (PORTABLE) Exam Date: 03/05/18 [...] 6:04 AM Dictated By: AKANKSHA PONCE MD [facility] y Signed By: AKANKSHA PONCE MD on 03/05/18603 Transcribed By: BAMBI on 03/05 COPY TO: IVETH COBIAN MD Arterial Blood pH 2018-03-04 12:52:00* Test Item Value Reference Range Interpretation Comments Arterial Blood pH (test code = 2744-1) 7.42 7.31-7.41 H [facility] Partial Pressure CO2 2018-03-04 12:52:00* Test Item Value Reference Range Interpretation Comments Arterial Blood Partial Pressure CO2 (test code = 2018-) 44 41-51 [facility] Partial Pressure O2 2018-03-04 12:52:00* Test Item Value Reference Range Interpretation Comments Arterial Blood Partial Pressure O2 (test code = 2018-) 69 80-105 L [facility] [id number] 12:52:00* Test Item Value Reference Range Interpretation Comments Arterial Blood HCO3 (test code = 1960-4) 29 23-28 H [facility]enAr[facility] Blood Base [id number] 12:52:00* Test Item Value Reference Range Interpretation Comments Arterial Blood Base Excess (test code = 1925-7) 4.0 -2-3 H [facility] Oxygen Saturation 2018-03-04 12:52:00* Test Item Value Reference Range Interpretation Comments Arterial Blood Oxygen Saturation (test code = 2708-6) 94.0 95-98 L [facility]enFiO22018-06-16 12:52:00* Test Item Value Reference Range Interpretation Comments FiO2 (test code = FiO2) 40 40% [facility] Blood [id number] 12:52:00* Test Item Value Reference Range Interpretation Comments Arterial Blood pH (test code = 2744-1) 7.42 7.31-7.41 H [facility] Partial Pressure CO2 2018-03-04 12:52:00* Test Item Value Reference Range Interpretation Comments Arterial Blood Partial Pressure CO2 (test code = 2019-8) 44 41-51 [facility] Partial Pressure O2 2018-03-04 12:52:00* Test Item Value Reference Range Interpretation Comments Arterial Blood Partial Pressure O2 (test code = 2019-8) 69 80-105 L [facility] Blood [id number] 12:52:00* Test Item Value Reference Range Interpretation Comments Arterial Blood HCO3 (test code = 1960-4) 29 23-28 H [facility] Base Xsfeyq5854-40-12 12:52:00* Test Item Value Reference Range Interpretation Comments Arterial Blood Base Excess (test code = 1925-7) 4.0 -2-3 H [facility] Oxygen Saturation 2018-03-04 12:52:00* Test Item Value Reference Range Interpretation Comments Arterial Blood Oxygen Saturation (test code = 2708-6) 94.0 95-98 L [facility]enFiO22018-06-16 12:52:00* Test Item Value Reference Range Interpretation Comments FiO2 (test code = FiO2) 40 40% [facility] Blood [id number] 12:52:00* Test Item Value Reference Range Interpretation Comments Arterial Blood pH (test code = 2744-1) 7.42 7.31-7.41 H [facility] Partial Pressure CO2 2018-03-04 12:52:00* Test Item Value Reference Range Interpretation Comments Arterial Blood Partial Pressure CO2 (test code = 2019-8) 44 41-51 [facility] Partial Pressure O2 2018-03-04 12:52:00* Test Item Value Reference Range Interpretation Comments Arterial Blood Partial Pressure O2 (test code = 2018-) 69 80-105 L [facility] Blood [id number] 12:52:00* Test Item Value Reference Range Interpretation Comments Arterial Blood HCO3 (test code = 1960-4) 29 23-28 H [facility]Ar[facility] Base Cwqugj2677-11-32 12:52:00* Test Item Value Reference Range Interpretation Comments Arterial Blood Base Excess (test code = 1925-7) 4.0 -2-3 H [facility] Blood Oxygen Saturation 2018-03-04 12:52:00* Test Item Value Reference Range Interpretation Comments Arterial Blood Oxygen Saturation (test code = 2708-6) 94.0 95-98 L [facility]enFiO22018-06-16 12:52:00* Test Item Value Reference Range Interpretation Comments FiO2 (test code = FiO2) 40 40% [facility] Center[facility] [id number] 12:52:00* Test Item Value Reference Range Interpretation Comments Arterial Blood pH (test code = 2744-1) 7.42 7.31-7.41 H [facility] Partial Pressure CO2 2018-03-04 12:52:00* Test Item Value Reference Range Interpretation Comments Arterial Blood Partial Pressure CO2 (test code = 2018-8) 44 41-51 [facility] Partial Pressure O2 2018-03-04 12:52:00* Test Item Value Reference Range Interpretation Comments Arterial Blood Partial Pressure O2 (test code = 2018-8) 69 80-105 L [facility] Blood [id number] 12:52:00* Test Item Value Reference Range Interpretation Comments Arterial Blood HCO3 (test code = 1960-4) 29 23-28 H [facility] Base Oywxpx8878-06-31 12:52:00* Test Item Value Reference Range Interpretation Comments Arterial Blood Base Excess (test code = 1925-7) 4.0 -2-3 H [facility] Oxygen Saturation 2018-03-04 12:52:00* Test Item Value Reference Range Interpretation Comments Arterial Blood Oxygen Saturation (test code = 2708-6) 94.0 95-98 L [facility]enFiO22018-06-16 12:52:00* Test Item Value Reference Range Interpretation Comments FiO2 (test code = FiO2) 40 40% [facility] Blood [id number] 12:52:00* Test Item Value Reference Range Interpretation Comments Arterial Blood pH (test code = 2744-1) 7.42 7.31-7.41 H [facility] Partial Pressure CO2 2018-03-04 12:52:00* Test Item Value Reference Range Interpretation Comments Arterial Blood Partial Pressure CO2 (test code = 2019-8) 44 41-51 [facility] Partial Pressure O2 2018-03-04 12:52:00* Test Item Value Reference Range Interpretation Comments Arterial Blood Partial Pressure O2 (test code = 2019-8) 69 80-105 L [facility] Blood [id number] 12:52:00* Test Item Value Reference Range Interpretation Comments Arterial Blood HCO3 (test code = 1960-4) 29 23-28 H [facility] Base Wwrvum9723-68-12 12:52:00* Test Item Value Reference Range Interpretation Comments Arterial Blood Base Excess (test code = 1925-7) 4.0 -2-3 H [facility] Oxygen Saturation 2018-03-04 12:52:00* Test Item Value Reference Range Interpretation Comments Arterial Blood Oxygen Saturation (test code = 2708-6) 94.0 95-98 L [facility]enFiO22018-06-16 12:52:00* Test Item Value Reference Range Interpretation Comments FiO2 (test code = FiO2) 40 40% [facility] [id number] 12:52:00* Test Item Value Reference Range Interpretation Comments Arterial Blood pH (test code = 2744-1) 7.42 7.31-7.41 H [facility] Partial Pressure CO2 2018-03-04 12:52:00* Test Item Value Reference Range Interpretation Comments Arterial Blood Partial Pressure CO2 (test code = 2018-8) 44 41-51 [facility] Partial Pressure O2 2018-03-04 12:52:00* Test Item Value Reference Range Interpretation Comments Arterial Blood Partial Pressure O2 (test code = 2018-) 69 80-105 L [facility] Blood [id number] 12:52:00* Test Item Value Reference Range Interpretation Comments Arterial Blood HCO3 (test code = 1960-4) 29 23-28 H [facility] Base Yfqslx0960-57-13 12:52:00* Test Item Value Reference Range Interpretation Comments Arterial Blood Base Excess (test code = 1925-7) 4.0 -2-3 H [facility] Oxygen Saturation 2018-03-04 12:52:00* Test Item Value Reference Range Interpretation Comments Arterial Blood Oxygen Saturation (test code = 2708-6) 94.0 95-98 L [facility]enFiO22018-06-16 12:52:00* Test Item Value Reference Range Interpretation Comments FiO2 (test code = FiO2) 40 40% [facility] Blood [id number] 12:52:00* Test Item Value Reference Range Interpretation Comments Arterial Blood pH (test code = 2744-1) 7.42 7.31-7.41 H [facility] Partial Pressure CO2 2018-03-04 12:52:00* Test Item Value Reference Range Interpretation Comments Arterial Blood Partial Pressure CO2 (test code = 2018-8) 44 41-51 [facility] Partial Pressure O2 2018-03-04 12:52:00* Test Item Value Reference Range Interpretation Comments Arterial Blood Partial Pressure O2 (test code = 2019-8) 69 80-105 L [facility] Blood [id number] 12:52:00* Test Item Value Reference Range Interpretation Comments Arterial Blood HCO3 (test code = 1960-4) 29 23-28 H [facility] Base [id number] 12:52:00* Test Item Value Reference Range Interpretation Comments Arterial Blood Base Excess (test code = 1925-7) 4.0 -2-3 H [facility] Oxygen Saturation 2018-03-04 12:52:00* Test Item Value Reference Range Interpretation Comments Arterial Blood Oxygen Saturation (test code = 2708-6) 94.0 95-98 L [facility]enFiO22018-06-16 12:52:00* Test Item Value Reference Range Interpretation Comments FiO2 (test code = FiO2) 40 40% [facility] CenterAr[facility]ial Blood [id number] 12:52:00* Test Item Value Reference Range Interpretation Comments Arterial Blood pH (test code = 2744-1) 7.42 7.31-7.41 H [facility] Partial Pressure CO2 2018-03-04 12:52:00* Test Item Value Reference Range Interpretation Comments Arterial Blood Partial Pressure CO2 (test code = 2019-8) 44 41-51 [facility] Partial Pressure O2 2018-03-04 12:52:00* Test Item Value Reference Range Interpretation Comments Arterial Blood Partial Pressure O2 (test code = 2019-8) 69 80-105 L [facility] Blood [id number] 12:52:00* Test Item Value Reference Range Interpretation Comments Arterial Blood HCO3 (test code = 1960-4) 29 23-28 H [facility] Base Cyzzuk4726-96-65 12:52:00* Test Item Value Reference Range Interpretation Comments Arterial Blood Base Excess (test code = 1925-7) 4.0 -2-3 H [facility] Oxygen Saturation 2018-03-04 12:52:00* Test Item Value Reference Range Interpretation Comments Arterial Blood Oxygen Saturation (test code = 2708-6) 94.0 95-98 L [facility]enFi[facility]22018-06-16 12:52:00* Test Item Value Reference Range Interpretation Comments FiO2 (test code = FiO2) 40 40% [facility] CenterAr[facility] Blood [id number] 12:52:00* Test Item Value Reference Range Interpretation Comments Arterial Blood pH (test code = 2744-1) 7.42 7.31-7.41 H [facility] Partial Pressure CO2 2018-03-04 12:52:00* Test Item Value Reference Range Interpretation Comments Arterial Blood Partial Pressure CO2 (test code = 2019-8) 44 41-51 [facility] Partial Pressure O2 2018-03-04 12:52:00* Test Item Value Reference Range Interpretation Comments Arterial Blood Partial Pressure O2 (test code = 2019-8) 69 80-105 L [facility] [id number] 12:52:00* Test Item Value Reference Range Interpretation Comments Arterial Blood HCO3 (test code = 1960-4) 29 23-28 H [facility] Base Gzpfgr9523-94-75 12:52:00* Test Item Value Reference Range Interpretation Comments Arterial Blood Base Excess (test code = 1925-7) 4.0 -2-3 H [facility] Oxygen Saturation 2018-03-04 12:52:00* Test Item Value Reference Range Interpretation Comments Arterial Blood Oxygen Saturation (test code = 2708-6) 94.0 95-98 L [facility]enFiO22018-06-16 12:52:00* Test Item Value Reference Range Interpretation Comments FiO2 (test code = FiO2) 40 40% [facility] Blood [id number] 12:52:00* Test Item Value Reference Range Interpretation Comments Arterial Blood pH (test code = 2744-1) 7.42 7.31-7.41 H [facility] Partial Pressure CO2 2018-03-04 12:52:00* Test Item Value Reference Range Interpretation Comments Arterial Blood Partial Pressure CO2 (test code = 2018-) 44 41-51 [facility] Partial Pressure O2 2018-03-04 12:52:00* Test Item Value Reference Range Interpretation Comments Arterial Blood Partial Pressure O2 (test code = 2019-) 69 80-105 L [facility]Ar[facility] Blood [id number] 12:52:00* Test Item Value Reference Range Interpretation Comments Arterial Blood HCO3 (test code = 1960-4) 29 23-28 H [facility] Base Smnbzz4628-17-87 12:52:00* Test Item Value Reference Range Interpretation Comments Arterial Blood Base Excess (test code = 1925-7) 4.0 -2-3 H [facility] Oxygen Saturation 2018-03-04 12:52:00* Test Item Value Reference Range Interpretation Comments Arterial Blood Oxygen Saturation (test code = 2708-6) 94.0 95-98 L [facility]enFi[facility]22018-06-16 12:52:00* Test Item Value Reference Range Interpretation Comments FiO2 (test code = FiO2) 40 40% ATCCHI [facility]2018-03-04 08:00:00 [facility] [address] [place] [address] Patient Name: MOJGAN CUMMINGS MR #: [id number] : 1950 Age/Sex: 68/F Req #: [id number] Adm Physician: ILAN STEIN MD Ordered by: BALBIR BARDALES MD Report #: [id number] Location: ICU Room/Bed: ICU [facility] Procedure: DX/CHEST SINGLE (PORTABLE) Exam Date: 03/04/18 Exam [...] TO: BALBIR BARDALES MD CHEST XRAY POST [id number] 20:28:00 [place] [address] Patient Name: MOJGAN CUMMINGS MR #: [id number] : 1950 Age/Sex: 68/F Req #: [id number] Adm Physician: ILAN STEIN MD Ordered by: IVETH COBIAN MD Report #: [id number] Location: ICU Room/Bed: ICU [facility] Procedure: DX /CHEST XRAY POST PROCEDURE Exam Date: Exam Time: REPORT STATUS: Signed Examination: Single AP view of the chest. COM PARISON: Chest AP portable 03/03/2018 INDICATION: Status [...] 8:30 PM Dictated By: OG TURNER MD [facility] Signed By: OG TURNER MD on 03/03/182029 Transcribed By: BAMBI on 03/03/182029 COPY TO: IVETH COBIAN MD CHEST SINGLE (PORTABLE)2018-03-03 19:34:00 [place] [address] Patient Name: MOJGAN CUMMINGS MR #: [id number] : 1950 Age/Sex: 68/F Req #: [id number] Adm Physician: ILAN STEIN MD Ordered by: BASIL POSADAS, AKILAH POSADAS Report #: [id number] Location: ICU Room/Bed: ICU [facility] Procedure: [id number] DX /CHEST SINGLE (PORTABLE) Exam Date: 03/02/18 [...] TO: YOVANI GRACIA CHEST SINGLE (PORTABLE)2018-03-03 18:07:00 [place] [address] Patient Name: MOJGAN CUMMINGS MR #: [id number] : 1950 Age/Sex: 68/F Req #: [id number] Adm Physician: ILAN STEIN MD Ordered by: BALBIR BARDALES MD Report #: [id number] Location: ICU Room/Bed: ICU [facility] Procedure: [id number] DX/CHEST SINGLE (PORTABLE) Exam Date: 03/03/18 Exam Time: 164 5 REPORT STATUS: Signed PROCEDURE: A single AP view of the chest. COMPARISON: [facility], DX, CHEST SINGLE (PORTABLE), 8, 5:51. [facility], DX, CHEST SINGLE (PORTABLE), 03/02/2018, 23 :15. [...] 18:07 Dictated By: NAINA FRANKLIN MD, MD 1805 Transcribed By: DEN on 03/03/18 1 807 COPY TO: BALBIR BARDALES MD Stool Occult [id number] 18:19:00 * Test Item Value Reference Range Interpretation Comments Stool Occult Blood (test code = 2335-8) POSITIVE NEGATIVE H [facility] [id number] 18:19:00* Test Item Value Reference Range Interpretation Comments Stool Occult Blood (test code = 2335-8) POSITIVE NEGATIVE H [facility] [id number] 18:19:00* Test Item Value Reference Range Interpretation Comments Stool Occult Blood (test code = 2335-8) POSITIVE NEGATIVE [facility] [id number] 18:19:00* Test Item Value Reference Range Interpretation Comments Stool Occult Blood (test code = 2335-8) POSITIVE NEGATIVE H [facility] Piyez3319-80-95 18:19:00* Test Item Value Reference Range Interpretation Comments Stool Occult Blood (test code = 2335-8) POSITIVE NEGATIVE H [facility] [id number] 18:19:00* Test Item Value Reference Range Interpretation Comments Stool Occult Blood (test code = 2335-8) POSITIVE NEGATIVE H [facility] Qkkyn9634-55-92 18:19:00* Test Item Value Reference Range Interpretation Comments Stool Occult Blood (test code = 2335-8) [facility]IVE [facility] [id number] 18:19:00* Test Item Value Reference Range Interpretation Comments Stool Occult Blood (test code = 2335-8) POSITIVE NEGATIVE [facility]25-Hydroxy Vitamin D Bgoob1426-92-25 15:27:00* Test Item Value Reference Range Interpretation Comments 25-Hydroxy Vitamin D Total (test code = 58896-3) 23 . L Reference Range:All Ages: Target levels 30 - 100[facility]25-Hydroxy Vitamin [id number] 15:27:00* Test Item Value Reference Range Interpretation Comments 25-Hydroxy Vitamin D3 (test code = 54564-4) 22 . Performed at: [employer] [place] [address]Lab Director: Shun Wahl MD, Phone: [phone]25-Hydroxy Vitamin [id number] 15:27:00* Test Item Value Reference Range Interpretation Comments 25-Hydroxy Vitamin D2 (test code = 1988-3) -1.0 . [facility]-Hydroxy Vitamin D Mdcww6154-46-99 15:27:00* Test Item Value Reference Range Interpretation Comments 25-Hydroxy Vitamin D Total (test code = 49175-1) 23 . L Reference Range:All Ages: Target levels 30 - 100[facility]25-Hydroxy Vitamin [id number] 15:27:00* Test Item Value Reference Range Interpretation Comments 25-Hydroxy Vitamin D3 (test code = 50077-5) 22 . Performed at: [place] [address]Lab Director: Shun Wahl MD, Phone: [phone]25-Hydroxy Vitamin [id number] 15:27:00* Test Item Value Reference Range Interpretation Comments 25-Hydroxy Vitamin D2 (test code = 1988-3) -1.0 . [facility]25-Hydroxy Vitamin D Mbhsp8582-70-43 15:27:00* Test Item Value Reference Range Interpretation Comments 25-Hydroxy Vitamin D Total (test code = 72587-5) 23 . L Reference Range:All Ages: Target levels 30 - 100[facility]25-Hydroxy Vitamin S76089-34-61 15:27:00* Test Item Value Reference Range Interpretation Comments 25-Hydroxy Vitamin D3 (test code = 50191-9) 22 . Performed at: [facility] [place] [employer] [address] Director: Shun Wahl MD, Phone: [phone] [facility] – [facility]25-Hydroxy Vitamin [id number] 15:27:00* Test Item Value Reference Range Interpretation Comments 25-Hydroxy Vitamin D2 (test code = 1989-3) -1.0 . [facility]25-Hydroxy Vitamin D Rljkn9760-39-31 15:27:00* Test Item Value Reference Range Interpretation Comments 25-Hydroxy Vitamin D Total (test code = 29682-2) 23 . L Reference Range:All Ages: Target levels 30 - 100[facility]25-Hydroxy Vitamin [id number] 15:27:00* Test Item Value Reference Range Interpretation Comments 25-Hydroxy Vitamin D3 (test code = 40046-3) 22 . Performed at: [facility] [place] [address]Lab Director: Shun Wahl MD, Phone: [phone] [facility] – [facility]en25-Hydroxy Vitamin [id number] 15:27:00* Test Item Value Reference Range Interpretation Comments 25-Hydroxy Vitamin D2 (test code = 1989-3) -1.0 . [facility]25-Hydroxy Vitamin D Qhepg0453-52-66 15:27:00* Test Item Value Reference Range Interpretation Comments 25-Hydroxy Vitamin D Total (test code = 97174-7) 23 . L Reference Range:All Ages: Target levels 30 - 100[facility] Vitamin O57182-78-38 15:27:00* Test Item Value Reference Range Interpretation Comments 25-Hydroxy Vitamin D3 (test code = 06046-5) 22 . Performed at: [facility] [place] [id number] Director: Shun Wahl MD, Phone: [phone]25-Hydroxy Vitamin I62659-44-69 15:27:00* Test Item Value Reference Range Interpretation Comments 25-Hydroxy Vitamin D2 (test code = 1988-3) -1.0 . [facility]25-Hydroxy Vitamin D Edwzu9627-99-02 15:27:00* Test Item Value Reference Range Interpretation Comments 25-Hydroxy Vitamin D Total (test code = 79200-3) 23 . L Reference Range:All Ages: Target levels 30 - 100[facility]25-Hydroxy Vitamin Y97451-25-79 15:27:00* Test Item Value Reference Range Interpretation Comments 25-Hydroxy Vitamin D3 (test code = 12847-0) 22 . Performed at: [facility] [place] [address]Lab Director: Shun Wahl MD, Phone: [phone]25-Hydroxy Vitamin R60700-14-94 15:27:00* Test Item Value Reference Range Interpretation Comments 25-Hydroxy Vitamin D2 (test code = 1988-3) -1.0 . [facility]25-Hydroxy Vitamin D Syunv0520-67-15 15:27:00* Test Item Value Reference Range Interpretation Comments 25-Hydroxy Vitamin D Total (test code = 45212-2) 23 . L Reference Range:All Ages: Target levels 30 - 100[facility]25-Hydroxy Vitamin G13512-60-61 15:27:00* Test Item Value Reference Range Interpretation Comments 25-Hydroxy Vitamin D3 (test code = 51428-5) 22 . Performed at: [facility] [place] [id number] 5[address]Lab Director: Shun Wahl MD, Phone: [phone]25-Hydroxy Vitamin A20740-56-66 15:27:00* Test Item Value Reference Range Interpretation Comments 25-Hydroxy Vitamin D2 (test code = 1988-3) -1.0 . [facility]25-Hydroxy Vitamin D Mxpnp9762-28-90 15:27:00* Test Item Value Reference Range Interpretation Comments 25-Hydroxy Vitamin D Total (test code = 13803-9) 23 . L Reference Range:All Ages: Target levels 30 - 100[facility]25-Hydroxy Vitamin K13186-72-08 15:27:00* Test Item Value Reference Range Interpretation Comments 25-Hydroxy Vitamin D3 (test code = 10800-9) 22 . Performed at: [place] [address] Director: Shun Wahl MD, Phone: [phone]25-Hydroxy Vitamin B42642-34-14 15:27:00* Test Item Value Reference Range Interpretation Comments 25-Hydroxy Vitamin D2 (test code = 1988-) <1.0 . [facility]25-Hydroxy Vitamin D Bfenx7950-09-80 15:27:00* Test Item Value Reference Range Interpretation Comments 25-Hydroxy Vitamin D Total (test code = 15960-2) 23 . L Reference Range:All Ages: Target levels 30 - 100[facility]25-Hydroxy Vitamin E27953-63-10 15:27:00* Test Item Value Reference Range Interpretation Comments 25-Hydroxy Vitamin D3 (test code = 26536-1) 22 . Performed at: [place] [place] [address] Director: Shun Wahl MD, Phone: [phone]25-Hydroxy Vitamin Z56061-02-29 15:27:00* Test Item Value Reference Range Interpretation Comments 25-Hydroxy Vitamin D2 (test code = 1988-) <1.0 . [facility]25-Hydroxy Vitamin D Hhugm7812-03-46 15:27:00* Test Item Value Reference Range Interpretation Comments 25-Hydroxy Vitamin D Total (test code = 55436-2) 23 . L Reference Range:All Ages: Target levels 30 - 100[facility]25-Hydroxy Vitamin M62093-48-40 15:27:00* Test Item Value Reference Range Interpretation Comments 25-Hydroxy Vitamin D3 (test code = 26803-5) 22 . Performed at: [facility] [facility] [facility] [address] [id number]Lab Director: Shun Wahl MD, Phone: [phone] [facility]25-Hydroxy Vitamin G45578-45-06 15:27:00* Test Item Value Reference Range Interpretation Comments 25-Hydroxy Vitamin D2 (test code = 1989-3) <1.0 . [facility] FD8225-17-66 13:43:00 [place] [address] Patient Name: MOJGAN CUMMINGS MR #: [id number] : 05/1950 Age/Sex: 68/F Req #: [id number] Adm Physician: ILAN MAURICIO MD Ordered by: BASIL POSADAS, AKILAH POSADAS Report #: [id number] Loca tion: MED/SURG2 Room/Bed: 202 Procedure: [id number] CT/CT SOFT TISSUE NECK WO Exam Date: [...] 03/01/18 1351 COPY TO: AKILAH GRACIA Blood Jtuxwmm4546-44-29 10:18:00* Test Item Value Reference Range Interpretation Comments Blood Culture (test code = 71232506) NO GROWTH AFTER 5 DAYS, FINAL REPORT [facility] Xhwqnzg8572-94-63 10:18:00* Test Item Value Reference Range Interpretation Comments Blood Culture (test code = 58127811) NO GROWTH AFTER 5 DAYS, FINAL REPORT [facility] Cvqyatf7671-16-23 10:18:00* Test Item Value Reference Range Interpretation Comments Blood Culture (test code = 64765879) NO GROWTH AFTER 5 DAYS, FINAL REPORT [facility] Nejxusn3167-04-32 10:18:00* Test Item Value Reference Range Interpretation Comments Blood Culture (test code = 72130524) NO GROWTH AFTER 5 DAYS, FINAL REPORT [facility] Wjpdabz4696-34-02 10:18:00* Test Item Value Reference Range Interpretation Comments Blood Culture (test code = 33248541) NO GROWTH AFTER 5 DAYS, FINAL REPORT [facility]2018-06-13 05:46:00* Test Item Value Reference Range Interpretation Comments Sputum Culture (test code = 624-7) Organism: PSEUDOMONAS AERUGINOSA [facility]2018-06-13 05:46:00* Test Item Value Reference Range Interpretation Comments Sputum Culture (test code = 624-7) Organism: PSEUDOMONAS AERUGINOSA [facility]2018-06-13 05:46:00* Test Item Value Reference Range Interpretation Comments Sputum Culture (test code = 624-7) Organism: PSEUDOMONAS AERUGINOSA [facility]2018-06-13 05:46:00* Test Item Value Reference Range Interpretation Comments Sputum Culture (test code = 624-7) Organism: PSEUDOMONAS AERUGINOSA [facility]2018-06-13 05:46:00* Test Item Value Reference Range Interpretation Comments Sputum Culture (test code = 624-7) Organism: PSEUDOMONAS AERUGINOSA [facility]2018-06-13 05:46:00* Test Item Value Reference Range Interpretation Comments Sputum Culture (test code = 624-7) Organism: PSEUDOMONAS AERUGINOSA [facility]2018-06-13 05:46:00* Test Item Value Reference Range Interpretation Comments Sputum Culture (test code = 624-7) Organism: PSEUDOMONAS AERUGINOSA [facility]2018-06-13 05:46:00* Test Item Value Reference Range Interpretation Comments Sputum Culture (test code = 624-7) Organism: PSEUDOMONAS AERUGINOSA [facility]2018-06-13 05:46:00* Test Item Value Reference Range Interpretation Comments Sputum Culture (test code = 624-7) Organism: PSEUDOMONAS AERUGINOSA [facility]2018-06-13 05:46:00* Test Item Value Reference Range Interpretation Comments Sputum Culture (test code = 624-7) Organism: PSEUDOMONAS AERUGINOSA [facility] Neutrophils %2018-02-28 09:42:00* Test Item Value Reference Range Interpretation Comments Band Neutrophils % (test code = 764-1) 1 [facility] % (Manual)2018-02-28 09:42:00* Test Item Value Reference Range Interpretation Comments Basophils % (Manual) (test code = 21840-7) 1 0-1.5 [facility]enReactive Izkbftxehgc1830-02-41 09:42:00* Test Item Value Reference Range Interpretation Comments Reactive Lymphocytes (test code = 85595-8) 1 [facility] Neutrophils %2018-02-28 09:42:00* Test Item Value Reference Range Interpretation Comments Band Neutrophils % (test code = 764-1) 1 [facility] % (Manual)2018-02-28 09:42:00* Test Item Value Reference Range Interpretation Comments Basophils % (Manual) (test code = 83089-9) 1 0-1.5 [facility]enRe[facility] Ayktcrqywas4096-93-13 09:42:00* Test Item Value Reference Range Interpretation Comments Reactive Lymphocytes (test code = 18898-1) 1 [facility] Neutrophils %2018-02-28 09:42:00* Test Item Value Reference Range Interpretation Comments Band Neutrophils % (test code = 764-1) 1 [facility] % (Manual)2018-02-28 09:42:00* Test Item Value Reference Range Interpretation Comments Basophils % (Manual) (test code = 23168-8) 1 0-1.5 [facility]enRe[facility] Ioadatncjhf2196-19-88 09:42:00* Test Item Value Reference Range Interpretation Comments Reactive Lymphocytes (test code = 15899-1) 1 [facility] Neutrophils %2018-02-28 09:42:00* Test Item Value Reference Range Interpretation Comments Band Neutrophils % (test code = 764-1) 1 [facility] % (Manual)2018-02-28 09:42:00* Test Item Value Reference Range Interpretation Comments Basophils % (Manual) (test code = 72750-7) 1 0-1.5 [facility]enRe[facility] Hozyiquhzac9216-20-72 09:42:00* Test Item Value Reference Range Interpretation Comments Reactive Lymphocytes (test code = 29182-4) 1 [facility] Neutrophils %2018-02-28 09:42:00* Test Item Value Reference Range Interpretation Comments Band Neutrophils % (test code = 764-1) 1 [facility] % (Manual)2018-02-28 09:42:00* Test Item Value Reference Range Interpretation Comments Basophils % (Manual) (test code = 57325-3) 1 0-1.5 [facility]enRe[facility] Whehpuyuxzx9259-08-64 09:42:00* Test Item Value Reference Range Interpretation Comments Reactive Lymphocytes (test code = 77092-7) 1 [facility]enTriglycerides Sivej9355-82-90 06:37:00* Test Item Value Reference Range Interpretation Comments Triglycerides Level (test code = 2571-8) 124 0-149 [facility]enCh[facility] Vbtfy7567-78-72 06:37:00* Test Item Value Reference Range Interpretation Comments Cholesterol Level (test code = 2093-3) 119 0-199 Less than 200 mg/dL Low Czuv037 - 239 mg/dL Borderline Pmjt985 m g/dl and greater High Risk [facility]LDL Jorhuvgehxq7618-65-22 06:37:00* Test Item Value Reference Range Interpretation Comments LDL Cholesterol (test code = 2089-1) 44 60-130 L [facility]enHDL Yavdckggrtg7335-90-77 06:37:00* Test Item Value Reference Range Interpretation Comments HDL Cholesterol (test code = 2085-9) 50 40-60 [facility]/HDL Ytgbm0728-57-47 06:37:00 * Test Item Value Reference Range Interpretation Comments Cholesterol/HDL Ratio (test code = 9830-1) 2.4 3.0-3.6 L [facility]enTriglycerides Nucky2118-67-69 06:37:00* Test Item Value Reference Range Interpretation Comments Triglycerides Level (test code = 2571-8) 124 0-149 [facility]en[facility] Wkqbo8839-27-65 06:37:00* Test Item Value Reference Range Interpretation Comments Cholesterol Level (test code = 2093-3) 119 0-199 Less than 200 mg/dL Low Bgnu447 - 239 mg/dL Borderline Vihi719 m g/dl and greater High Risk [facility]enLDL Ismgdnjahzo3853-85-14 06:37:00* Test Item Value Reference Range Interpretation Comments LDL Cholesterol (test code = 2089-1) 44 60-[address] [facility] Dgqjczxekch4925-94-72 06:37:00* Test Item Value Reference Range Interpretation Comments HDL Cholesterol (test code = 2085-9) 50 40-60 [facility]/HDL Ppxcy9651-45-09 06:37:00 * Test Item Value Reference Range Interpretation Comments Cholesterol/HDL Ratio (test code = 9830-1) 2.4 3.0-3.6 L [facility]enTriglycerides Umwuu5614-20-73 06:37:00* Test Item Value Reference Range Interpretation Comments Triglycerides Level (test code = 2571-8) 124 0-149 [facility]enCh[facility] Nlieh8010-42-90 06:37:00* Test Item Value Reference Range Interpretation Comments Cholesterol Level (test code = 2093-3) 119 0-199 Less than 200 mg/dL Low Tqvj021 - 239 mg/dL Borderline Wbpr771 m g/dl and greater High Risk [facility]enLDL Caauozlxhgz8994-89-26 06:37:00* Test Item Value Reference Range Interpretation Comments LDL Cholesterol (test code = 2089-1) 44 60-[address] [facility] Xkihkvamwmo8183-28-58 06:37:00* Test Item Value Reference Range Interpretation Comments HDL Cholesterol (test code = 2085-9) 50 40-60 [facility]/HDL Iezuu1679-08-17 06:37:00 * Test Item Value Reference Range Interpretation Comments Cholesterol/HDL Ratio (test code = 9830-1) 2.4 3.0-3.6 L [facility]enTriglycerides Hgeyx0562-76-79 06:37:00* Test Item Value Reference Range Interpretation Comments Triglycerides Level (test code = 2571-8) 124 0-149 [facility]enCh[facility] Qjejl3647-93-09 06:37:00* Test Item Value Reference Range Interpretation Comments Cholesterol Level (test code = 2093-3) 119 0-199 Less than 200 mg/dL Low Ojdl170 - 239 mg/dL Borderline Hvcf128 m g/dl and greater High Risk [facility]enLDL Syyuuayhoye5328-88-16 06:37:00* Test Item Value Reference Range Interpretation Comments LDL Cholesterol (test code = 2089-1) 44 60-130 L [facility] Ccixxjtcjwz2795-11-33 06:37:00* Test Item Value Reference Range Interpretation Comments HDL Cholesterol (test code = 2085-9) 50 40-60 [facility]/HDL Qnxbq8913-45-53 06:37:00 * Test Item Value Reference Range Interpretation Comments Cholesterol/HDL Ratio (test code = 9830-1) 2.4 3.0-3.6 L [facility]enTriglycerides Adxja0600-01-10 06:37:00* Test Item Value Reference Range Interpretation Comments Triglycerides Level (test code = 2571-8) 124 0-149 [facility]enCh[facility] Wkzdw8747-57-02 06:37:00* Test Item Value Reference Range Interpretation Comments Cholesterol Level (test code = 2093-3) 119 0-199 Less than 200 mg/dL Low Jdbi049 - 239 mg/dL Borderline Fezc598 m g/dl and greater High Risk [facility]enLDL Rmhckkhinvn1842-59-66 06:37:00* Test Item Value Reference Range Interpretation Comments LDL Cholesterol (test code = 2089-1) 44 60-130 L [facility] Fpbtayaintv4359-31-98 06:37:00* Test Item Value Reference Range Interpretation Comments HDL Cholesterol (test code = 2085-9) 50 40-60 [facility]/HDL Lhiuy5009-42-44 06:37:00 * Test Item Value Reference Range Interpretation Comments Cholesterol/HDL Ratio (test code = 9830-1) 2.4 3.0-3.6 L [facility]enTriglycer[facility] Cvqka3374-75-23 06:37:00* Test Item Value Reference Range Interpretation Comments Triglycerides Level (test code = 2571-8) 124 0-149 [facility]enCh[facility] Xlgcm0427-03-47 06:37:00* Test Item Value Reference Range Interpretation Comments Cholesterol Level (test code = 2093-3) 119 0-199 Less than 200 mg/dL Low Sodm712 - 239 mg/dL Borderline Jiri011 m g/dl and greater High Risk [facility]enLDL Morffhfgkmd5195-67-71 06:37:00* Test Item Value Reference Range Interpretation Comments LDL Cholesterol (test code = 2089-1) 44 60-130 L [facility]enHD Zeaugxdrvsg3077-31-16 06:37:00* Test Item Value Reference Range Interpretation Comments HDL Cholesterol (test code = 2085-9) 50 40-60 [facility]enCholesterol/HDL Qqunj6112-72-15 06:37:00 * Test Item Value Reference Range Interpretation Comments Cholesterol/HDL Ratio (test code = 9830-1) 2.4 3.0-3.6 L [facility]enTriglycerides Viqgg9593-21-38 06:37:00* Test Item Value Reference Range Interpretation Comments Triglycerides Level (test code = 2571-8) 124 0-149 [facility]enCh[facility] Hyhbk7394-95-45 06:37:00* Test Item Value Reference Range Interpretation Comments Cholesterol Level (test code = 2093-3) 119 0-199 Less than 200 mg/dL Low Dlco635 - 239 mg/dL Borderline Ntvo070 m g/dl and greater High Risk [facility]enLDL Fexzvzlxhzt8551-78-68 06:37:00* Test Item Value Reference Range Interpretation Comments LDL Cholesterol (test code = 2089-1) 44 60-130 L [facility] Ddofppprhzi6441-72-11 06:37:00* Test Item Value Reference Range Interpretation Comments HDL Cholesterol (test code = 2085-9) 50 40-60 [facility]Ch[facility]/HDL Axmfa2875-77-09 06:37:00 * Test Item Value Reference Range Interpretation Comments Cholesterol/HDL Ratio (test code = 9830-1) 2.4 3.0-3.6 L [facility]enTr[facility]lycerides Kpccg8233-57-67 06:37:00* Test Item Value Reference Range Interpretation Comments Triglycerides Level (test code = 2571-8) 124 0-149 [facility]enCholesterol Vuoqk8165-74-25 06:37:00* Test Item Value Reference Range Interpretation Comments Cholesterol Level (test code = 2093-3) 119 0-199 Less than 200 mg/dL Low Zvpa114 - 239 mg/dL Borderline Jydi549 m g/dl and greater High Risk [facility]enLDL Wyxcmipukou9028-24-85 06:37:00* Test Item Value Reference Range Interpretation Comments LDL Cholesterol (test code = 2089-1) 44 60-130 L [facility] Hfrvnswlkxf6510-63-16 06:37:00* Test Item Value Reference Range Interpretation Comments HDL Cholesterol (test code = 2085-9) 50 40-60 [facility]Ch[facility]/HDL Gcrvy6447-54-25 06:37:00 * Test Item Value Reference Range Interpretation Comments Cholesterol/HDL Ratio (test code = 9830-1) 2.4 3.0-3.6 L [facility]enTr[facility]lycer[facility] Tfckh8164-16-88 06:37:00* Test Item Value Reference Range Interpretation Comments Triglycerides Level (test code = 2571-8) 124 0-149 [facility]enCh[facility] Saqzi3373-88-74 06:37:00* Test Item Value Reference Range Interpretation Comments Cholesterol Level (test code = 2093-3) 119 0-199 Less than 200 mg/dL Low Zoyd640 - 239 mg/dL Borderline Pcvh698 m g/dl and greater High Risk [facility]enLDL Mewckqijgow5142-78-75 06:37:00* Test Item Value Reference Range Interpretation Comments LDL Cholesterol (test code = 2089-1) 44 60-130 L [facility] Wsdvmamvqjh4656-22-05 06:37:00* Test Item Value Reference Range Interpretation Comments HDL Cholesterol (test code = 2085-9) 50 40-60 [facility]/HDL Jvhrl9159-64-75 06:37:00 * Test Item Value Reference Range Interpretation Comments Cholesterol/HDL Ratio (test code = 9830-1) 2.4 3.0-3.6 L [facility]enTr[facility]lycer[facility] Uzgdb0875-31-81 06:37:00* Test Item Value Reference Range Interpretation Comments Triglycerides Level (test code = 2571-8) 124 0-149 [facility]enCh[facility] Hiowb0695-33-08 06:37:00* Test Item Value Reference Range Interpretation Comments Cholesterol Level (test code = 2093-3) 119 0-199 Less than 200 mg/dL Low Nslw408 - 239 mg/dL Borderline Kkmi486 m g/dl and greater High Risk [facility]enLDL Wiouozfxjnz4244-74-62 06:37:00* Test Item Value Reference Range Interpretation Comments LDL Cholesterol (test code = 2089-1) 44 60-130 L [facility] Tgkunydzmew8999-45-35 06:37:00* Test Item Value Reference Range Interpretation Comments HDL Cholesterol (test code = 2085-9) 50 40-60 [facility]/HDL Lxtzw7751-46-18 06:37:00 * Test Item Value Reference Range Interpretation Comments Cholesterol/HDL Ratio (test code = 9830-1) 2.4 3.0-3.6 L [facility]enThyroid Stimulating Hormone (TSH) 2018-02-26 12:33:00* Test Item Value Reference Range Interpretation Comments Thyroid Stimulating Hormone (TSH) (test code = 22953-0) 7.144 0.350-4.940 H [facility]enThyroid Stimulating Hormone (TSH) 2018-02-26 12:33:00* Test Item Value Reference Range Interpretation Comments Thyroid Stimulating Hormone (TSH) (test code = 81092-5) 7.144 0.350-4.940 H [facility]enThyroid Stimulating Hormone (TSH) 2018-02-26 12:33:00* Test Item Value Reference Range Interpretation Comments Thyroid Stimulating Hormone (TSH) (test code = 14711-5) 7.144 0.350-4.940 H [facility]enThyroid Stimulating Hormone (TSH) 2018-02-26 12:33:00* Test Item Value Reference Range Interpretation Comments Thyroid Stimulating Hormone (TSH) (test code = 85041-6) 7.144 0.350-4.940 H [facility]en[facility]yroid Stimulating Hormone (TSH) 2018-02-26 12:33:00* Test Item Value Reference Range Interpretation Comments Thyroid Stimulating Hormone (TSH) (test code = 43981-8) 7.144 0.350-4.940 H [facility]enUric Sgmb3090-21-33 12:10:00* Test Item Value Reference Range Interpretation Comments Uric Acid (test code = 3084-1) 5.7 2.6-8.0 [facility]enPhosphorus Tacpv3283-77-04 12:10:00* Test Item Value Reference Range Interpretation Comments Phosphorus Level (test code = ZIC4595) 3.5 2.3-4.7 [facility]enU[facility] Pkrf6251-20-41 12:10:00* Test Item Value Reference Range Interpretation Comments Uric Acid (test code = 3084-1) 5.7 2.6-8.0 [facility]enPhosphorus Kauty4620-54-53 12:10:00* Test Item Value Reference Range Interpretation Comments Phosphorus Level (test code = KLI2186) 3.5 2.3-4.7 [facility]en[facility] Rkck2726-21-01 12:10:00* Test Item Value Reference Range Interpretation Comments Uric Acid (test code = 3084-1) 5.7 2.6-8.0 [facility]enPhosph[facility] Yztwc2365-97-66 12:10:00* Test Item Value Reference Range Interpretation Comments Phosphorus Level (test code = QTU6627) 3.5 2.3-4.7 [facility]enU[facility] Lnop7912-05-46 12:10:00* Test Item Value Reference Range Interpretation Comments Uric Acid (test code = 3084-1) 5.7 2.6-8.0 [facility]enPhosph[facility] Zohqr3473-29-98 12:10:00* Test Item Value Reference Range Interpretation Comments Phosphorus Level (test code = IYL2406) 3.5 2.3-4.7 [facility]enU[facility] Zogl0661-46-91 12:10:00* Test Item Value Reference Range Interpretation Comments Uric Acid (test code = 3084-1) 5.7 2.6-8.0 [facility]enPhosph[facility] Ztmyv6989-12-45 12:10:00* Test Item Value Reference Range Interpretation Comments Phosphorus Level (test code = WUG6973) 3.5 2.3-4.7 [facility]en[facility] Ygxb0358-76-13 12:10:00* Test Item Value Reference Range Interpretation Comments Uric Acid (test code = 3084-1) 5.7 2.6-8.0 [facility]enPh[facility] Fbpkl2941-71-75 12:10:00* Test Item Value Reference Range Interpretation Comments Phosphorus Level (test code = KUD2665) 3.5 2.3-4.7 [facility]enPhosph[facility] Fpctk3752-22-74 12:10:00* Test Item Value Reference Range Interpretation Comments Phosphorus Level (test code = HPL7960) 3.5 2.3-4.7 [facility]enPh[facility] Pyoxt5346-92-12 12:10:00* Test Item Value Reference Range Interpretation Comments Phosphorus Level (test code = ZTG9898) 3.5 2.3-4.7 [facility]enPhosphorus Nhryw7563-30-78 12:10:00* Test Item Value Reference Range Interpretation Comments Phosphorus Level (test code = [id number]) 3.5 2.3-4.7 [facility] Oahzh7190-55-63 12:10:00* Test Item Value Reference Range Interpretation Comments Phosphorus Level (test code = QHA7831) 3.5 2.3-4.7 [facility] 06:10:00 [facility] [address] [place], [place] [address] Patient Name: MOJGAN CUMMINGS MR #: [id number] : 1950 Age/Sex: 68/F Req #: [id number] Adm Physician: ILAN STEIN MD Ordered by: BALBIR BARDALES MD Report #: [id number] Location: ICU Room/Bed: ICU [facility] Procedure: [id number] DX/CHEST SINGLE (PORTABLE) Exam Date: 02/26/18 Exam [...] COPY TO: BALBIR BARDALES MD CT CHEST [id number] 17:07:00 [facility] [address] [place] [address] Patient Name: MOJGAN CUMMINGS MR #: [id number] : 1950 Age/Sex: 68/F Req #: [id number] Adm Physician: ILAN STEIN MD Ordered by: NATHANIEL ROMERO MD Report #: [id number] Location: ICU Room/Bed: ICU [facility] Procedure: [id number] CT/CT CHES T W Exam Date: 02/25/18 [...] COPY TO: NATHANIEL ROMERO MD Vitamin B12 Xtgvh2168-59-59 07:49:00* Test Item Value Reference Range Interpretation Comments Vitamin B12 Level (test code = 40514-2) 605 213-256 [facility] 07:49:00* Test Item Value Reference Range Interpretation Comments Folate (test code = 2284-8) 13.3 7.0-15.4 [facility] B12 Wwqrr9588-98-44 07:49:00* Test Item Value Reference Range Interpretation Comments Vitamin B12 Level (test code = 58767-0) 639 213-516 [facility]2018-06-09 07:49:00* Test Item Value Reference Range Interpretation Comments Folate (test code = 2284-8) 13.3 7.0-15.4 [facility] B12 Cpwof5322-77-41 07:49:00* Test Item Value Reference Range Interpretation Comments Vitamin B12 Level (test code = 54547-9) 638 213-816 [facility]2018-06-09 07:49:00* Test Item Value Reference Range Interpretation Comments Folate (test code = 2284-8) 13.3 7.0-15.4 [facility]12 Rrphl5585-83-86 07:49:00* Test Item Value Reference Range Interpretation Comments Vitamin B12 Level (test code = 65407-3) 638 213-816 [facility]2018-06-09 07:49:00* Test Item Value Reference Range Interpretation Comments Folate (test code = 2284-8) 13.3 7.0-15.4 [facility]12 Riblv3751-08-69 07:49:00* Test Item Value Reference Range Interpretation Comments Vitamin B12 Level (test code = 20473-2) 638 213-816 [facility]2018-06-09 07:49:00* Test Item Value Reference Range Interpretation Comments Folate (test code = 2284-8) 13.3 7.0-15.4 [facility]en[facility] B12 Bxetc5450-84-62 07:49:00* Test Item Value Reference Range Interpretation Comments Vitamin B12 Level (test code = 59928-7) 638 213-816 [facility]2018-06-09 07:49:00* Test Item Value Reference Range Interpretation Comments Folate (test code = 2284-8) 13.3 7.0-15.4 [facility]en[facility] B12 Mhbfr0059-04-20 07:49:00* Test Item Value Reference Range Interpretation Comments Vitamin B12 Level (test code = 32051-4) 638 213-816 [facility]2018-06-09 07:49:00* Test Item Value Reference Range Interpretation Comments Folate (test code = 2284-8) 13.3 7.0-15.4 [facility] B12 Wqxpy9612-59-39 07:49:00* Test Item Value Reference Range Interpretation Comments Vitamin B12 Level (test code = 90641-4) 998 483-489 [facility]2018-06-09 07:49:00* Test Item Value Reference Range Interpretation Comments Folate (test code = 2284-8) 13.3 7.0-15.4 [facility] Mwrzpdjvw4647-99-62 07:21:00* Test Item Value Reference Range Interpretation Comments Large Platelets (test code = 5908-9) [facility] Hfxygkckl8417-28-98 07:21:00* Test Item Value Reference Range Interpretation Comments Large Platelets (test code = 5908-9) [facility] Uzqadymub9416-45-60 07:21:00* Test Item Value Reference Range Interpretation Comments Large Platelets (test code = 5908-9) [facility]2018-06-09 07:21:00* Test Item Value Reference Range Interpretation Comments Large Platelets (test code = 5908-9) [facility] Hagxiskyw3014-52-24 07:21:00* Test Item Value Reference Range Interpretation Comments Large Platelets (test code = 5908-9) [facility] Scteanjtv1850-34-42 07:21:00* Test Item Value Reference Range Interpretation Comments Large Platelets (test code = 5908-9) [facility]2018-06-09 07:21:00* Test Item Value Reference Range Interpretation Comments Large Platelets (test code = 5908-9) [facility] Sqaxnpvho6689-47-16 07:21:00* Test Item Value Reference Range Interpretation Comments Large Platelets (test code = 5908-9) [facility] Egjdqmwfp8978-16-74 07:21:00* Test Item Value Reference Range Interpretation Comments Large Platelets (test code = 5908-9) [facility]2018-06-09 07:21:00* Test Item Value Reference Range Interpretation Comments Large Platelets (test code = 5908-9) RARE [facility]2018-06-09 07:04:00* Test Item Value Reference Range Interpretation Comments Ferritin (test code = 2276-4) 158.87 4.63-204.00 [facility] Tiketldyg7024-47-06 07:04:00* Test Item Value Reference Range Interpretation Comments Free Thyroxine (test code = 3024-7) 0.76 0.9-1.8 L [facility]2018-06-09 07:04:00* Test Item Value Reference Range Interpretation Comments Ferritin (test code = 2276-4) 158.87 4.63-204.00 [facility] Kuuyftvqc7683-53-56 07:04:00* Test Item Value Reference Range Interpretation Comments Free Thyroxine (test code = 3024-7) 0.76 0.9-1.8 L [facility]2018-06-09 07:04:00* Test Item Value Reference Range Interpretation Comments Ferritin (test code = 2276-4) 158.87 4.63-204.00 [facility] Njzxwxipw0134-39-73 07:04:00* Test Item Value Reference Range Interpretation Comments Free Thyroxine (test code = 3024-7) 0.76 0.9-1.8 L [facility]2018-06-09 07:04:00* Test Item Value Reference Range Interpretation Comments Ferritin (test code = 2276-4) 158.87 4.63-204.00 [facility] Vsoihymii0205-70-08 07:04:00* Test Item Value Reference Range Interpretation Comments Free Thyroxine (test code = 3024-7) 0.76 0.9-1.8 L [facility]2018-06-09 07:04:00* Test Item Value Reference Range Interpretation Comments Ferritin (test code = 2276-4) 158.87 4.63-204.00 [facility]enFree Vtvsyzsdg4635-35-90 07:04:00* Test Item Value Reference Range Interpretation Comments Free Thyroxine (test code = 3024-7) 0.76 0.9-1.8 L [facility]en[facility]2018-06-09 07:04:00* Test Item Value Reference Range Interpretation Comments Ferritin (test code = 2276-4) 158.87 4.63-204.00 [facility]2018-06-09 07:04:00* Test Item Value Reference Range Interpretation Comments Ferritin (test code = 2276-4) 158.87 4.63-204.00 [facility]2018-06-09 07:04:00* Test Item Value Reference Range Interpretation Comments Ferritin (test code = 2276-4) 158.87 4.63-204.00 [facility]enCreatine Pjcbpc7371-39-19 07:02:00* Test Item Value Reference Range Interpretation Comments Creatine Kinase (test code = 2157-6) 7 29-168 L [facility]enCreat[facility] Kinase JI2595-61-61 07:02:00* Test Item Value Reference Range Interpretation Comments Creatine Kinase MB (test code = 98120-1) 0.80 0-5.0 [facility]enTroponin U5295-81-59 07:02:00* Test Item Value Reference Range Interpretation Comments Troponin I (test code = BMD7699) 0.007 0-0.300 [facility]enCreat[facility] Ergwpo5745-48-97 07:02:00* Test Item Value Reference Range Interpretation Comments Creatine Kinase (test code = 2157-6) 7 29-168 L [facility]enCreatine Kinase AU3508-98-14 07:02:00* Test Item Value Reference Range Interpretation Comments Creatine Kinase MB (test code = 61223-2) 0.80 0-5.0 [facility]enTroponin W7015-12-63 07:02:00* Test Item Value Reference Range Interpretation Comments Troponin I (test code = ZMN5198) 0.007 0-0.300 [facility] Pcutne1851-19-14 07:02:00* Test Item Value Reference Range Interpretation Comments Creatine Kinase (test code = 2157-6) 7 29-168 L [facility]enCreat[facility] Kinase YG8912-22-35 07:02:00* Test Item Value Reference Range Interpretation Comments Creatine Kinase MB (test code = 29750-6) 0.80 0-5.0 [place] 05601018-06-09 07:02:00* Test Item Value Reference Range Interpretation Comments Troponin I (test code = YGH0082) 0.007 0-0.300 [facility] Atuckk3194-58-26 07:02:00* Test Item Value Reference Range Interpretation Comments Creatine Kinase (test code = 2157-6) 7 29-168 L [facility]enCreat[facility] Kinase JY0114-65-48 07:02:00* Test Item Value Reference Range Interpretation Comments Creatine Kinase MB (test code = 43016-2) 0.80 0-5.0 [place] 05601018-06-09 07:02:00* Test Item Value Reference Range Interpretation Comments Troponin I (test code = IDF3290) 0.007 0-0.300 [facility] Xoabqr5711-04-27 07:02:00* Test Item Value Reference Range Interpretation Comments Creatine Kinase (test code = 2157-6) 7 29-168 L [facility]enCreat[facility] Kinase GE0272-10-96 07:02:00* Test Item Value Reference Range Interpretation Comments Creatine Kinase MB (test code = 75903-6) 0.80 0-5.0 [place] 05601018-06-09 07:02:00* Test Item Value Reference Range Interpretation Comments Troponin I (test code = SLW8440) 0.007 0-0.300 [facility]en[facility] Lijkl3621-39-80 06:42:00* Test Item Value Reference Range Interpretation Comments Iron Level (test code = 2498-4) 30 50-170 L [facility]enTotal Iron Binding Uykxubnf4114-91-12 06:42:00* Test Item Value Reference Range Interpretation Comments Total Iron Binding Capacity (test code = 2500-7) 181 261-4 78 L [facility] Iron Nfwsizdgzd2732-27-16 06:42:00* Test Item Value Reference Range Interpretation Comments Percent Iron Saturation (test code = 2502-3) 17 15-50 [facility]enTransferrin2018-06-09 06:42:00* Test Item Value Reference Range Interpretation Comments Transferrin (test code = 3034-6) 129 180-382 L [facility]2018-06-09 06:42:00* Test Item Value Reference Range Interpretation Comments Iron Level (test code = 2498-4) 30 50-170 L [facility] Iron Binding Fmbvqrls2193-42-49 06:42:00* Test Item Value Reference Range Interpretation Comments Total Iron Binding Capacity (test code = 2500-7) 181 261-4 78 L [facility] Iron Hrxxxegpze7015-54-97 06:42:00* Test Item Value Reference Range Interpretation Comments Percent Iron Saturation (test code = 2502-3) 17 15-50 [facility]enTrans[facility]2018-06-09 06:42:00* Test Item Value Reference Range Interpretation Comments Transferrin (test code = 3034-6) 129 180-382 L [facility]2018-06-09 06:42:00* Test Item Value Reference Range Interpretation Comments Iron Level (test code = 2498-4) 30 50-170 L [facility] Iron Binding Mocqgeoe3614-95-96 06:42:00* Test Item Value Reference Range Interpretation Comments Total Iron Binding Capacity (test code = 2500-7) 181 261-4 78 L [facility] Iron Lctxumtvcw9773-60-23 06:42:00* Test Item Value Reference Range Interpretation Comments Percent Iron Saturation (test code = 2502-3) 17 15-50 [facility]enTrans[facility]2018-06-09 06:42:00* Test Item Value Reference Range Interpretation Comments Transferrin (test code = 3034-6) 129 180-382 L [facility]2018-06-09 06:42:00* Test Item Value Reference Range Interpretation Comments Iron Level (test code = 2498-4) 30 50-170 L [facility]enTotal Iron Binding Piyvrnjd3892-16-54 06:42:00* Test Item Value Reference Range Interpretation Comments Total Iron Binding Capacity (test code = 2500-7) 181 261-4 78 L [facility]enPercent Iron Yeadesrnwv5587-78-38 06:42:00* Test Item Value Reference Range Interpretation Comments Percent Iron Saturation (test code = 2502-3) 17 15-50 [facility]enTransferrin2018-06-09 06:42:00* Test Item Value Reference Range Interpretation Comments Transferrin (test code = 3034-6) 129 180-382 L [facility]2018-06-09 06:42:00* Test Item Value Reference Range Interpretation Comments Iron Level (test code = 2498-4) 30 50-170 L [facility] Iron Binding Yswsskct1659-75-95 06:42:00* Test Item Value Reference Range Interpretation Comments Total Iron Binding Capacity (test code = 2500-7) 181 261-4 78 L [facility] Iron Jwomumwqra1473-30-54 06:42:00* Test Item Value Reference Range Interpretation Comments Percent Iron Saturation (test code = 2502-3) 17 15-50 [facility]enTrans[facility]2018-06-09 06:42:00* Test Item Value Reference Range Interpretation Comments Transferrin (test code = 3034-6) 129 180-382 L [facility]2018-06-09 06:42:00* Test Item Value Reference Range Interpretation Comments Iron Level (test code = 2498-4) 30 50-170 L [facility] Iron Binding Zwmhpbwt1427-07-84 06:42:00* Test Item Value Reference Range Interpretation Comments Total Iron Binding Capacity (test code = 2500-7) 181 261-4 78 L [facility]enPercent Iron Cbumbocnjp3189-47-99 06:42:00* Test Item Value Reference Range Interpretation Comments Percent Iron Saturation (test code = 2502-3) 17 15-50 [facility]enTransferrin2018-06-09 06:42:00* Test Item Value Reference Range Interpretation Comments Transferrin (test code = 3034-6) 129 180-382 [facility] Brysp5360-27-09 06:42:00* Test Item Value Reference Range Interpretation Comments Iron Level (test code = 2498-4) 30 50-170 L [facility]enTotal Iron Binding Twquqixs9484-82-76 06:42:00* Test Item Value Reference Range Interpretation Comments Total Iron Binding Capacity (test code = 2500-7) 181 261-4 78 L [facility]enPercent Iron Xklapoylsh9189-86-28 06:42:00* Test Item Value Reference Range Interpretation Comments Percent Iron Saturation (test code = 2502-3) 17 -50 [facility]enTrans[facility]2018-06-09 06:42:00* Test Item Value Reference Range Interpretation Comments Transferrin (test code = 3034-6) 129 180-382 L [facility]enIron Qhjed6993-60-37 06:42:00* Test Item Value Reference Range Interpretation Comments Iron Level (test code = 2498-4) 30 50-170 L [facility]enTotal Iron Binding Gmijvpwn8538-83-26 06:42:00* Test Item Value Reference Range Interpretation Comments Total Iron Binding Capacity (test code = 2500-7) 181 261-4 78 L [facility]enPercent Iron Ahukknngsd5045-49-33 06:42:00* Test Item Value Reference Range Interpretation Comments Percent Iron Saturation (test code = 2502-3) 17 15-50 [facility]enTransferrin2018-06-09 06:42:00* Test Item Value Reference Range Interpretation Comments Transferrin (test code = 3034-6) 129 180-382 L [facility]enHemoglobin A1c Dbltutx3254-86-76 06:16:00 * Test Item Value Reference Range Interpretation Comments Hemoglobin A1c Percent (test code = Hemoglobin A1c Percent) 5.6 4.0-7.0 [facility]enHemoglobin A1c Ubclhiq1248-82-28 06:16:00 * Test Item Value Reference Range Interpretation Comments Hemoglobin A1c Percent (test code = Hemoglobin A1c Percent) 5.6 4.0-7.0 [facility]enHemoglobin A1c Ayeynyd2141-41-75 06:16:00 * Test Item Value Reference Range Interpretation Comments Hemoglobin A1c Percent (test code = Hemoglobin A1c Percent) 5.6 4.0-7.0 [facility]enHemoglobin A1c Kxlcxbs6794-21-68 06:16:00 * Test Item Value Reference Range Interpretation Comments Hemoglobin A1c Percent (test code = Hemoglobin A1c Percent) 5.6 4.0-7.0 [facility]enH[facility]oglobin A1c Fxizjti5052-38-32 06:16:00 * Test Item Value Reference Range Interpretation Comments Hemoglobin A1c Percent (test code = Hemoglobin A1c Percent) 5.6 4.0-7.0 [facility]enH[facility]oglobin A1c Knlexxm3604-79-59 06:16:00 * Test Item Value Reference Range Interpretation Comments Hemoglobin A1c Percent (test code = Hemoglobin A1c Percent) 5.6 4.0-7.0 [facility]enH[facility] A1c Oznqdxg6210-71-85 06:16:00 * Test Item Value Reference Range Interpretation Comments Hemoglobin A1c Percent (test code = Hemoglobin A1c Percent) 5.6 4.0-7.0 [facility]enH[facility]oglobin A1c Dmvkrlr2728-65-65 06:16:00 * Test Item Value Reference Range Interpretation Comments Hemoglobin A1c Percent (test code = Hemoglobin A1c Percent) 5.6 4.0-7.0 [facility]enH[facility] A1c Ukaxzfr3505-85-24 06:16:00 * Test Item Value Reference Range Interpretation Comments Hemoglobin A1c Percent (test code = Hemoglobin A1c Percent) 5.6 4.0-7.0 [facility]enHemoglobin A1c Dptoont7846-79-38 06:16:00 * Test Item Value Reference Range Interpretation Comments Hemoglobin A1c Percent (test code = Hemoglobin A1c Percent) 5.6 4.0-7.0 [facility]enUrine TUR9646-94-17 13:05:00* Test Item Value Reference Range Interpretation Comments Urine WBC (test code = 5821-4) 6-10 0-5 H [facility]enU[facility] YSN9800-42-83 13:05:00* Test Item Value Reference Range Interpretation Comments Urine RBC (test code = 36743-5) 0-5 0-5 [facility] Hyhkrhph8726-89-91 13:05:00* Test Item Value Reference Range Interpretation Comments Urine Bacteria (test code = 51509-3) FEW NONE [facility]en[facility] Epithelial Ttkfq7008-22-20 13:05:00 * Test Item Value Reference Range Interpretation Comments Urine Epithelial Cells (test code = 13040-6) FEW NONE [facility]en[facility] DXH0903-16-61 13:05:00* Test Item Value Reference Range Interpretation Comments Urine WBC (test code = 5821-4) 6-10 0-5 H [facility]enU[facility] AJW1550-07-91 13:05:00* Test Item Value Reference Range Interpretation Comments Urine RBC (test code = 89316-2) 0-5 0-5 [facility]en[facility] Lsfvojim2458-65-51 13:05:00* Test Item Value Reference Range Interpretation Comments Urine Bacteria (test code = 52635-7) FEW NONE [facility]enU[facility] Epithelial Jzmax0920-82-14 13:05:00 * Test Item Value Reference Range Interpretation Comments Urine Epithelial Cells (test code = 07783-5) FEW NONE [facility]en[facility] TSC6602-71-35 13:05:00* Test Item Value Reference Range Interpretation Comments Urine WBC (test code = 5821-4) 6-10 0-5 H [facility]enU[facility] UAM1863-25-82 13:05:00* Test Item Value Reference Range Interpretation Comments Urine RBC (test code = 61184-5) 0-5 0-5 [facility] Rmtqqznu4234-80-73 13:05:00* Test Item Value Reference Range Interpretation Comments Urine Bacteria (test code = 69598-5) FEW NONE [facility]enU[facility] Epithelial Qlrkc5290-09-72 13:05:00 * Test Item Value Reference Range Interpretation Comments Urine Epithelial Cells (test code = 27996-5) FEW NONE [facility]enU[facility] MYA4152-11-54 13:05:00* Test Item Value Reference Range Interpretation Comments Urine WBC (test code = 5821-4) 6-10 0-5 H [facility]enU[facility] FOX7056-34-80 13:05:00* Test Item Value Reference Range Interpretation Comments Urine RBC (test code = 52721-6) 0-5 0-5 [facility] Mvptrtur3944-39-99 13:05:00* Test Item Value Reference Range Interpretation Comments Urine Bacteria (test code = 18068-6) FEW NONE [facility]en[facility] Epithelial Hprpp5457-95-48 13:05:00 * Test Item Value Reference Range Interpretation Comments Urine Epithelial Cells (test code = 00729-1) FEW NONE [facility]en[facility] UCH8845-44-98 13:05:00* Test Item Value Reference Range Interpretation Comments Urine WBC (test code = 5821-4) 6-10 0-5 H [facility]enU[facility] WUT0139-39-69 13:05:00* Test Item Value Reference Range Interpretation Comments Urine RBC (test code = 20208-4) 0-5 0-5 [facility] Modibayd2976-62-41 13:05:00* Test Item Value Reference Range Interpretation Comments Urine Bacteria (test code = 04773-5) FEW NONE [facility]en[facility] Epithelial Oavdl1676-61-07 13:05:00 * Test Item Value Reference Range Interpretation Comments Urine Epithelial Cells (test code = 70465-4) FEW NONE [facility] FZP2756-15-34 13:05:00* Test Item Value Reference Range Interpretation Comments Urine WBC (test code = 5821-4) 6-10 0-5 H [facility]enU[facility] RVL8274-79-55 13:05:00* Test Item Value Reference Range Interpretation Comments Urine RBC (test code = 38042-1) 0-5 0-5 [facility] Fqcdruft0502-74-57 13:05:00* Test Item Value Reference Range Interpretation Comments Urine Bacteria (test code = 91134-2) FEW NONE [facility]en[facility] Epithelial Quqsw1777-59-28 13:05:00 * Test Item Value Reference Range Interpretation Comments Urine Epithelial Cells (test code = 96631-2) FEW NONE [facility]en[facility] Eoitn4124-25-05 12:58:00* Test Item Value Reference Range Interpretation Comments Urine Color (test code = 5778-6) YELLOW YELLOW [facility] Pkeopbt7263-57-32 12:58:00* Test Item Value Reference Range Interpretation Comments Urine Clarity (test code = 13819-8) HAZY CLEAR [facility] Specific Fvclgsi6139-19-69 12:58:00 * Test Item Value Reference Range Interpretation Comments Urine Specific Welling (test code = 5811-5) 1.005 1.010-1.02 5 L [facility]en[facility] mI5392-03-10 12:58:00* Test Item Value Reference Range Interpretation Comments Urine pH (test code = 78285-6) 6 5-7 [facility] Leukocyte Bswlnxyi0688-30-75 12:58:00* Test Item Value Reference Range Interpretation Comments Urine Leukocyte Esterase (test code = 5799-2) TRACE NEGATIVE H [facility]en[facility] Iqxvvzk9421-87-56 12:58:00* Test Item Value Reference Range Interpretation Comments Urine Nitrite (test code = 92389-2) NEGATIVE NEGATIVE [facility] Ytgtzpo7038-53-28 12:58:00* Test Item Value Reference Range Interpretation Comments Urine Protein (test code = 5804-0) NEGATIVE NEGATIVE [facility] Glucose (UA)2018-02-24 12:58:00* Test Item Value Reference Range Interpretation Comments Urine Glucose (UA) (test code = 2349-9) NEGATIVE NEGATIVE [facility] Sknbaxo0160-80-75 12:58:00* Test Item Value Reference Range Interpretation Comments Urine Ketones (test code = 28985-6) NEGATIVE NEGATIVE [facility] Kpchantymybm5407-79-97 12:58:00* Test Item Value Reference Range Interpretation Comments Urine Urobilinogen (test code = 82178-9) 0.2 0.2-1 [facility] Hyvmepuiv4234-27-83 12:58:00* Test Item Value Reference Range Interpretation Comments Urine Bilirubin (test code = 1978-6) NEGATIVE NEGATIVE [facility] Vanvv5496-97-10 12:58:00* Test Item Value Reference Range Interpretation Comments Urine Blood (test code = 16932-2) NEGATIVE NEGATIVE [facility] Qatjx9333-42-57 12:58:00* Test Item Value Reference Range Interpretation Comments Urine Color (test code = 5778-6) YELLOW YELLOW [facility] Pbutqjc2796-47-74 12:58:00* Test Item Value Reference Range Interpretation Comments Urine Clarity (test code = 39711-4) HAZY CLEAR [facility] Specific Cdsgjxi5258-58-85 12:58:00 * Test Item Value Reference Range Interpretation Comments Urine Specific Welling (test code = 5811-5) 1.005 1.010-1.02 5 L [facility] cZ1733-35-21 12:58:00* Test Item Value Reference Range Interpretation Comments Urine pH (test code = 86062-0) 6 5-7 [facility] Leukocyte Drcnbsup9695-45-38 12:58:00* Test Item Value Reference Range Interpretation Comments Urine Leukocyte Esterase (test code = 5799-2) TRACE NEGATIVE H [facility] Ctwgkzl2557-63-04 12:58:00* Test Item Value Reference Range Interpretation Comments Urine Nitrite (test code = 58659-6) NEGATIVE NEGATIVE [facility] Oufnfxc7140-46-43 12:58:00* Test Item Value Reference Range Interpretation Comments Urine Protein (test code = 5804-0) NEGATIVE NEGATIVE [facility] Glucose (UA)2018-02-24 12:58:00* Test Item Value Reference Range Interpretation Comments Urine Glucose (UA) (test code = 2349-9) NEGATIVE NEGATIVE [facility] Vtlcnlp7854-81-91 12:58:00* Test Item Value Reference Range Interpretation Comments Urine Ketones (test code = 82636-4) NEGATIVE NEGATIVE [facility] Jnipdiowdsrj7778-78-74 12:58:00* Test Item Value Reference Range Interpretation Comments Urine Urobilinogen (test code = 28770-1) 0.2 0.2-1 [facility] Yjidrkwfk1272-26-85 12:58:00* Test Item Value Reference Range Interpretation Comments Urine Bilirubin (test code = 1978-6) NEGATIVE NEGATIVE [facility] Xamfm7182-66-60 12:58:00* Test Item Value Reference Range Interpretation Comments Urine Blood (test code = 24308-4) NEGATIVE NEGATIVE [facility] Iyjfa7838-61-77 12:58:00* Test Item Value Reference Range Interpretation Comments Urine Color (test code = 5778-6) YELLOW YELLOW [facility] Rvqckvn5028-42-42 12:58:00* Test Item Value Reference Range Interpretation Comments Urine Clarity (test code = 01617-5) HAZY CLEAR [facility] Specific Dixwuxu6783-26-77 12:58:00 * Test Item Value Reference Range Interpretation Comments Urine Specific Welling (test code = 5811-5) 1.005 1.010-1.02 5 L [facility] pY7864-10-37 12:58:00* Test Item Value Reference Range Interpretation Comments Urine pH (test code = 70990-0) 6 5-7 [facility] Leukocyte Bwnmognp5196-30-02 12:58:00* Test Item Value Reference Range Interpretation Comments Urine Leukocyte Esterase (test code = 5799-2) TRACE NEGATIVE H [facility] Taoktgt3287-18-33 12:58:00* Test Item Value Reference Range Interpretation Comments Urine Nitrite (test code = 34657-8) NEGATIVE NEGATIVE [facility] Wxywnaj4651-61-56 12:58:00* Test Item Value Reference Range Interpretation Comments Urine Protein (test code = 5804-0) NEGATIVE NEGATIVE [facility] Glucose (UA)2018-02-24 12:58:00* Test Item Value Reference Range Interpretation Comments Urine Glucose (UA) (test code = 2349-9) NEGATIVE NEGATIVE [facility] Gzieief7111-57-62 12:58:00* Test Item Value Reference Range Interpretation Comments Urine Ketones (test code = 62233-6) NEGATIVE NEGATIVE [facility] Fiwnepvjvldv4018-26-33 12:58:00* Test Item Value Reference Range Interpretation Comments Urine Urobilinogen (test code = 40752-2) 0.2 0.2-1 [facility] Plnwrxejm8269-31-97 12:58:00* Test Item Value Reference Range Interpretation Comments Urine Bilirubin (test code = 1978-6) NEGATIVE NEGATIVE [facility] Agaiy6379-71-32 12:58:00* Test Item Value Reference Range Interpretation Comments Urine Blood (test code = 99578-5) NEGATIVE NEGATIVE [facility] Bxsnw8592-85-54 12:58:00* Test Item Value Reference Range Interpretation Comments Urine Color (test code = 5778-6) YELLOW YELLOW [facility] Zietran8848-05-24 12:58:00* Test Item Value Reference Range Interpretation Comments Urine Clarity (test code = 39017-4) HAZY CLEAR [facility] Specific Skozskc6007-81-41 12:58:00 * Test Item Value Reference Range Interpretation Comments Urine Specific Welling (test code = 5811-5) 1.005 1.010-1.02 5 L [facility] oA6613-41-72 12:58:00* Test Item Value Reference Range Interpretation Comments Urine pH (test code = 74194-0) 6 5-7 [facility] Leukocyte Shpcequh2129-03-68 12:58:00* Test Item Value Reference Range Interpretation Comments Urine Leukocyte Esterase (test code = 5799-2) TRACE NEGATIVE H [facility] Eqejvge9777-23-70 12:58:00* Test Item Value Reference Range Interpretation Comments Urine Nitrite (test code = 02683-6) NEGATIVE NEGATIVE [facility] Gsdxiko1607-29-22 12:58:00* Test Item Value Reference Range Interpretation Comments Urine Protein (test code = 5804-0) NEGATIVE NEGATIVE [facility] Glucose (UA)2018-02-24 12:58:00* Test Item Value Reference Range Interpretation Comments Urine Glucose (UA) (test code = 2349-9) NEGATIVE NEGATIVE [facility] Mrakcze1834-36-81 12:58:00* Test Item Value Reference Range Interpretation Comments Urine Ketones (test code = 12426-1) NEGATIVE NEGATIVE [facility] Varameuhowip9471-29-15 12:58:00* Test Item Value Reference Range Interpretation Comments Urine Urobilinogen (test code = 47344-2) 0.2 0.2-1 [facility] Xagwxotnp9680-10-37 12:58:00* Test Item Value Reference Range Interpretation Comments Urine Bilirubin (test code = 1978-6) NEGATIVE NEGATIVE [facility] Axfoi1824-22-35 12:58:00* Test Item Value Reference Range Interpretation Comments Urine Blood (test code = 63307-0) NEGATIVE NEGATIVE [facility] Pqdzz1777-60-08 12:58:00* Test Item Value Reference Range Interpretation Comments Urine Color (test code = 5778-6) YELLOW YELLOW [facility] Hlxaqrx5834-02-76 12:58:00* Test Item Value Reference Range Interpretation Comments Urine Clarity (test code = 90185-8) HAZY CLEAR [facility] Specific Rovyluw1790-49-95 12:58:00 * Test Item Value Reference Range Interpretation Comments Urine Specific Welling (test code = 5811-5) 1.005 1.010-1.02 5 L [facility] xS7871-49-92 12:58:00* Test Item Value Reference Range Interpretation Comments Urine pH (test code = 64443-3) 6 5-7 [facility] Leukocyte Syqhxaol7729-72-55 12:58:00* Test Item Value Reference Range Interpretation Comments Urine Leukocyte Esterase (test code = 5799-2) TRACE NEGATIVE H [facility] Vpomtcb3345-42-02 12:58:00* Test Item Value Reference Range Interpretation Comments Urine Nitrite (test code = 80729-6) NEGATIVE NEGATIVE [facility] Rklfyrq7183-44-35 12:58:00* Test Item Value Reference Range Interpretation Comments Urine Protein (test code = 5804-0) NEGATIVE NEGATIVE [facility] Glucose (UA)2018-02-24 12:58:00* Test Item Value Reference Range Interpretation Comments Urine Glucose (UA) (test code = 2349-9) NEGATIVE NEGATIVE [facility] Suhuawd3416-86-47 12:58:00* Test Item Value Reference Range Interpretation Comments Urine Ketones (test code = 28129-7) NEGATIVE NEGATIVE [facility] Tqtbbweehllt1463-60-22 12:58:00* Test Item Value Reference Range Interpretation Comments Urine Urobilinogen (test code = 69050-3) 0.2 0.2-1 [facility] Jhhounfag5423-93-70 12:58:00* Test Item Value Reference Range Interpretation Comments Urine Bilirubin (test code = 1978-6) NEGATIVE NEGATIVE [facility] Gwinl9439-82-51 12:58:00* Test Item Value Reference Range Interpretation Comments Urine Blood (test code = 20053-8) NEGATIVE NEGATIVE [facility] Figso3772-79-43 12:58:00* Test Item Value Reference Range Interpretation Comments Urine Color (test code = 5778-6) YELLOW YELLOW [facility] Wgjzqob5844-66-68 12:58:00* Test Item Value Reference Range Interpretation Comments Urine Clarity (test code = 02539-1) HAZY CLEAR [facility] Specific Fuvlzic3987-79-21 12:58:00 * Test Item Value Reference Range Interpretation Comments Urine Specific Welling (test code = 5811-5) 1.005 1.010-1.02 5 L [facility] gC8570-89-75 12:58:00* Test Item Value Reference Range Interpretation Comments Urine pH (test code = 87618-7) 6 5-7 [facility] Leukocyte Qiyxumoo8388-78-72 12:58:00* Test Item Value Reference Range Interpretation Comments Urine Leukocyte Esterase (test code = 5799-2) TRACE NEGATIVE H [facility] Svxjdvi2751-40-92 12:58:00* Test Item Value Reference Range Interpretation Comments Urine Nitrite (test code = 32863-3) NEGATIVE NEGATIVE [facility] Qgtscsu9612-12-47 12:58:00* Test Item Value Reference Range Interpretation Comments Urine Protein (test code = 5804-0) NEGATIVE NEGATIVE [facility] Glucose (UA)2018-02-24 12:58:00* Test Item Value Reference Range Interpretation Comments Urine Glucose (UA) (test code = 2349-9) NEGATIVE NEGATIVE [facility] Fmbsuoo4914-60-83 12:58:00* Test Item Value Reference Range Interpretation Comments Urine Ketones (test code = 20883-5) NEGATIVE NEGATIVE [facility] Nevinkwfynti2598-53-19 12:58:00* Test Item Value Reference Range Interpretation Comments Urine Urobilinogen (test code = 42622-5) 0.2 0.2-1 [facility] Dykyajfgl2556-65-12 12:58:00* Test Item Value Reference Range Interpretation Comments Urine Bilirubin (test code = 1978-6) NEGATIVE NEGATIVE [facility] Eijyb1594-63-89 12:58:00* Test Item Value Reference Range Interpretation Comments Urine Blood (test code = 74304-8) NEGATIVE NEGATIVE [facility] Natriuretic Zvmiziy9005-82-60 11:04:00* Test Item Value Reference Range Interpretation Comments B-Type Natriuretic Peptide (test code = 26274-1) 97.8 0-100 [facility] Natri[facility]tic Qtslpjf7849-87-50 11:04:00* Test Item Value Reference Range Interpretation Comments B-Type Natriuretic Peptide (test code = 14580-7) 97.8 0-100 [facility] Natri[facility]tic Iuutvdo6405-47-00 11:04:00* Test Item Value Reference Range Interpretation Comments B-Type Natriuretic Peptide (test code = 34101-9) 97.8 0-100 [facility]en[facility] Uaxlcpmiu6014-73-92 10:51:00* Test Item Value Reference Range Interpretation Comments Total Bilirubin (test code = 1975-2) 0.3 0.2-1.2 [facility]enAspartate Amino Transf (AST/SGOT) 2018-02-24 10:51:00* Test Item Value Reference Range Interpretation Comments Aspartate Amino Transf (AST/SGOT) (test code = Aspartate Amino Transf (AST/SGOT)) 16 5-34 [facility]enAlanine Aminotransferase (ALT/SGPT) 2018-02-24 10:51:00* Test Item Value Reference Range Interpretation Comments Alanine Aminotransferase (ALT/SGPT) (test code = 1742-6) 10 0-55 [facility]en[facility] Rcqjtnj9597-11-16 10:51:00* Test Item Value Reference Range Interpretation Comments Total Protein (test code = 2885-2) 6.0 6.5-8.1 L [facility]enAlbumin2018-06-08 10:51:00* Test Item Value Reference Range Interpretation Comments Albumin (test code = 1751-7) 2.8 3.5-5.0 L [facility]enGlobulin2018-06-08 10:51:00* Test Item Value Reference Range Interpretation Comments Globulin (test code = 99585-5) 3.2 2.3-3.5 [facility]enAlbum[facility]/Globulin Bapun0840-33-21 10:51:00 * Test Item Value Reference Range Interpretation Comments Albumin/Globulin Ratio (test code = 1759-0) 0.9 0.8-2.0 [facility]enAlkaline Qfxacuvzvcu1420-87-29 10:51:00* Test Item Value Reference Range Interpretation Comments Alkaline Phosphatase (test code = 6768-6) 85 40-150 [facility]enLactic Acid Wlujx0626-33-05 10:46:00* Test Item Value Reference Range Interpretation Comments Lactic Acid Level (test code = Lactic Acid Level) 10.7 4.5- 19.8 [facility]enLactic Acid Erlsk5369-69-25 10:46:00* Test Item Value Reference Range Interpretation Comments Lactic Acid Level (test code = Lactic Acid Level) 10.7 4.5- 19.8 [facility]enLactic Acid Iisml4398-81-45 10:46:00* Test Item Value Reference Range Interpretation Comments Lactic Acid Level (test code = Lactic Acid Level) 10.7 4.5- 19.8 [facility]enLactic Acid Wvfai9651-00-40 10:46:00* Test Item Value Reference Range Interpretation Comments Lactic Acid Level (test code = Lactic Acid Level) 10.7 4.5- 19.8 [facility]enLactic Acid Ppzld9918-91-64 10:46:00* Test Item Value Reference Range Interpretation Comments Lactic Acid Level (test code = Lactic Acid Level) 10.7 4.5- 19.8 [facility]enProthrombin Xxgq3833-70-50 10:42:00* Test Item Value Reference Range Interpretation Comments Prothrombin Time (test code = 5902-2) 13.0 11.9-14.5 [facility]enProthromb Time International Ratio 2018-02-24 10:42:00* Test Item Value Reference Range Interpretation Comments Prothromb Time International Ratio (test code = 6301-6) 1.06 Oral Anticoagulant Therapy INR Values:1. Low Intensity Therapy 1.5 - 2.02 . Moderate Intensity Therapy 2.0 - 3.03. High Intensity Therapy(1) 2.5 - 3. 54. High Intensity Therapy(2) 3.0 - 4.05. Panic Value INR > 5.0 [facility]enActivated Partial Thromboplast Time 2018-02-24 10:42:00* Test Item Value Reference Range Interpretation Comments Activated Partial Thromboplast Time (test code = 45316-3) 26.7 23.8-35.5 [facility]2018-02-24 10:40:00 [facility] [address] [address] Patient Name: MOJGAN CUMMINGS MR #: [id number] : 1950 Age/Sex: 68/F Req #: [id number] Adm Physician: Ordered by: ENRRIQUE TSAI MD Report #: [id number] Location: ER Room/Bed: Procedure: [id number] DX/CHEST SINGLE (PORTABLE) E xam Date: 02/24/18 [...] on 02/24/2018 at 10:40 Dictated By: BALBIR WILLIAMOSN MD Elec tronically Signed By: BALBIR WILLIAMSON MD on 02/24/18 1040 Transcribed By: DEN aburto 02/24/18 1040 COPY TO: ENRRIQUE TSAI MD Blood Culture 2018-02-14 07:58:00* Test Item Value Reference Range Interpretation Comments Blood Culture (test code = 600-7) Organism: STAPHYLOCOCCUS LUGDUNEN [facility] Wsrroar7684-48-29 07:58:00* Test Item Value Reference Range Interpretation Comments Blood Culture (test code = 600-7) Organism: STAPHYLOCOCCUS LUGDUNEN [facility] Tlrluab9388-22-66 07:58:00* Test Item Value Reference Range Interpretation Comments Blood Culture (test code = 600-7) Organism: STAPHYLOCOCCUS LUGDUNEN [facility] Olgycxu0426-08-24 07:58:00* Test Item Value Reference Range Interpretation Comments Blood Culture (test code = 600-7) Organism: STAPHYLOCOCCUS LUGDUNEN [facility] Edppsdt9381-34-71 07:58:00* Test Item Value Reference Range Interpretation Comments Blood Culture (test code = 600-7) Organism: STAPHYLOCOCCUS LUGDUNEN [facility] HospitalDifferential Total Cells Counted 2018-02-10 20:03:00* Test Item Value Reference Range Interpretation Comments Differential Total Cells Counted (test code = Differjesus tial Total Cells Counted) 100 [facility]enNeutrophils % (Manual)2018-02-10 20:03:00 * Test Item Value Reference Range Interpretation Comments Neutrophils % (Manual) (test code = 04765-3) 83 40-74 H [facility]enLymphocytes % (Manual)2018-02-10 20:03:00 * Test Item Value Reference Range Interpretation Comments Lymphocytes % (Manual) (test code = 737-7) 8 19-48 L [facility]enMonocytes % (Manual)2018-02-10 20:03:00* Test Item Value Reference Range Interpretation Comments Monocytes % (Manual) (test code = 744-3) 9 3.4-9.0 [facility]enPlatelet Jidwtkrx8310-03-35 20:03:00* Test Item Value Reference Range Interpretation Comments Platelet Estimate (test code = 25091-5) ADEQUATE [facility]enPlatelet Morphology Sgjekht2212-75-57 20:03:00* Test Item Value Reference Range Interpretation Comments Platelet Morphology Comment (test code = 05475-6) NORMAL [facility]enHypochromasia2018-05-25 20:03:00* Test Item Value Reference Range Interpretation Comments Hypochromasia (test code = 728-6) SLIGHT [facility]enRed Cell Morphology Btzlgub8406-88-47 20:03:00* Test Item Value Reference Range Interpretation Comments Red Cell Morphology Comment (test code = 6742-1) NORMAL [facility]enB-Type Natriuretic Qlxdozq7684-68-08 19:18:00* Test Item Value Reference Range Interpretation Comments B-Type Natriuretic Peptide (test code = 27385-9) 117.9 0-100 H [facility]enCreatine Kinase LJ3939-40-11 19:12:00* Test Item Value Reference Range Interpretation Comments Creatine Kinase MB (test code = 77461-4) 1.50 0-5.0 [facility]enTroponin I5194-47-00 19:12:00* Test Item Value Reference Range Interpretation Comments Troponin I (test code = JCX2744) 0.031 0-0.300 [facility] Brdhm5811-30-45 19:04:00* Test Item Value Reference Range Interpretation Comments Sodium Level (test code = 2951-2) 132 136-145 L [facility]enPotassium Vnchr9056-04-87 19:04:00* Test Item Value Reference Range Interpretation Comments Potassium Level (test code = 2823-3) 3.4 3.5-5.1 L [facility]enChloride Wuqmd9649-16-55 19:04:00* Test Item Value Reference Range Interpretation Comments Chloride Level (test code = 2075-0) 94 98-107 L [facility]enCarbon Dioxide Tofpg6507-03-01 19:04:00* Test Item Value Reference Range Interpretation Comments Carbon Dioxide Level (test code = 2028-9) 25 22-29 [facility]enAnion Yar9784-08-97 19:04:00* Test Item Value Reference Range Interpretation Comments Anion Gap (test code = 62812-4) 16.4 8-16 H [facility]enBlood Urea Gncwpqgc6021-80-97 19:04:00* Test Item Value Reference Range Interpretation Comments Blood Urea Nitrogen (test code = 3094-0) 16 7-26 [facility]enCreatinine2018-05-25 19:04:00* Test Item Value Reference Range Interpretation Comments Creatinine (test code = 2160-0) 0.74 0.57-1.11 [facility]enBUN/Creatinine Wfwxx0888-44-77 19:04:00* Test Item Value Reference Range Interpretation Comments BUN/Creatinine Ratio (test code = 3097-3) 22 03-13 [facility]lingenEstimat Glomerular Filtration Rate 2018-02-10 19:04:00* Test Item Value Reference Range Interpretation Comments Estimat Glomerular Filtration Rate (test code = 78573-6) 60- >60 Ranges were taken from the National Kidney Disease Education Program and the [facility] Kidney Foundation literature.Reference ranges:60 or greater: Doksnq33-73 ( for 3 consecutive months): Chronic kidney disease 15 or less: Kidney failureVal[facility]enGlucose Ljzcx5457-09-81 19:04:00* Test Item Value Reference Range Interpretation Comments Glucose Level (test code = VOE4698) 189 74-118 H [facility]enCalcium Wcqah5006-64-33 19:04:00* Test Item Value Reference Range Interpretation Comments Calcium Level (test code = 59909-2) 9.0 8.4-10.2 [facility]enTotal Moeieefyg5754-20-87 19:04:00* Test Item Value Reference Range Interpretation Comments Total Bilirubin (test code = 1975-2) 0.4 0.2-1.2 [facility]enAspartate Amino Transf (AST/SGOT) 2018-02-10 19:04:00* Test Item Value Reference Range Interpretation Comments Aspartate Amino Transf (AST/SGOT) (test code = Aspartate Amino Transf (AST/SGOT)) 12 5-34 [facility]enAlanine Aminotransferase (ALT/SGPT) 2018-02-10 19:04:00* Test Item Value Reference Range Interpretation Comments Alanine Aminotransferase (ALT/SGPT) (test code = 1742-6) 9 0-55 [facility]enTotal Rseswal4676-59-05 19:04:00* Test Item Value Reference Range Interpretation Comments Total Protein (test code = 2885-2) 6.5 6.5-8.1 [facility]enAlbumin2018-05-25 19:04:00* Test Item Value Reference Range Interpretation Comments Albumin (test code = 1751-7) 2.6 3.5-5.0 L [facility]enGlobulin2018-05-25 19:04:00* Test Item Value Reference Range Interpretation Comments Globulin (test code = 09351-4) 3.9 2.3-3.5 H [facility]enAlbumin/Globulin Xceqc2974-27-34 19:04:00 * Test Item Value Reference Range Interpretation Comments Albumin/Globulin Ratio (test code = 1759-0) 0.7 0.8-2.0 L [facility]enAlkaline Iwmqgjztpwg5649-63-20 19:04:00* Test Item Value Reference Range Interpretation Comments Alkaline Phosphatase (test code = 6768-6) 85 40-150 [facility]enCreatine Hzfpgj8017-74-92 19:04:00* Test Item Value Reference Range Interpretation Comments Creatine Kinase (test code = 2157-6) 11 29-168 L [facility]lingenProthrombin [id number] 19:01:00* Test Item Value Reference Range Interpretation Comments Prothrombin Time (test code = 5902-2) 13.4 11.9-14.5 [facility]en[facility]th[facility] International Ratio 2018-02-10 19:01:00* Test Item Value Reference Range Interpretation Comments Prothromb Time International Ratio (test code = 6301-6) 1.10 Oral Anticoagulant Therapy INR Values:1. Low Intensity Therapy 1.5 - 2.02 . Moderate Intensity Therapy 2.0 - 3.03. High Intensity Therapy(1) 2.5 - 3. 54. High Intensity Therapy(2) 3.0 - 4.05. Panic Value INR > 5.0 [facility]enAct[facility] Partial Thromboplast Time 2018-02-10 19:01:00* Test Item Value Reference Range Interpretation Comments Activated Partial Thromboplast Time (test code = 90050-3) 29.9 23.8-35.5 [facility]enLactic Acid [id number] 18:57:00* Test Item Value Reference Range Interpretation Comments Lactic Acid Level (test code = Lactic Acid Level) 13.3 4.5- 19.8 [facility]enMixed Venous Blood [id number] 18:56:00 * Test Item Value Reference Range Interpretation Comments Mixed Venous Blood pH (test code = 65853-2) 7.447 7.32-7.42 [facility] [id number] 18:56:00* Test Item Value Reference Range Interpretation Comments Mixed Venous Blood PCO2 (test code = 65945-8) 43.8 40-50 [facility]en[facility] [id number] 18:56:00 * Test Item Value Reference Range Interpretation Comments Mixed Venous Blood PO2 (test code = 65169-2) 37 38-42 L [facility] [id number] 18:56:00* Test Item Value Reference Range Interpretation Comments Mixed Venous Blood HCO3 (test code = 19004-1) 30.2 22-26 [facility] Base [id number] 18:56:00* Test Item Value Reference Range Interpretation Comments Mixed Venous Blood Base Excess (test code = 29273-1) 6 - 5-3 [facility] O2 Saturation 2018-02-10 18:56:00* Test Item Value Reference Range Interpretation Comments Mixed Venous Blood O2 Saturation (test code = 04059-1) 72 70-75 Reason for ABG: PT ARRIVED BY AMBULANCE C/O SOBTRACH COLLARSpO2 99% at 10 L/min on 40%.[facility]enM[facility] Blood [id number] 18:56:00* Test Item Value Reference Range Interpretation Comments Mixed Venous Blood pH (test code = 63662-6) 7.447 7.32-7.42 [facility] [id number] 18:56:00* Test Item Value Reference Range Interpretation Comments Mixed Venous Blood PCO2 (test code = 04731-2) 43.8 40-50 [facility] [id number] 18:56:00 * Test Item Value Reference Range Interpretation Comments Mixed Venous Blood PO2 (test code = 89416-7) 37 38-42 L [facility] Venous Blood [id number] 18:56:00* Test Item Value Reference Range Interpretation Comments Mixed Venous Blood HCO3 (test code = 66863-9) 30.2 22-26 [facility] Venous Blood Base [id number] 18:56:00* Test Item Value Reference Range Interpretation Comments Mixed Venous Blood Base Excess (test code = 25747-9) 6 - 5-3 [facility] O2 Saturation 2018-02-10 18:56:00* Test Item Value Reference Range Interpretation Comments Mixed Venous Blood O2 Saturation (test code = 59354-8) 72 70-75 Reason for ABG: PT ARRIVED BY AMBULANCE C/O SOBTRACH COLLARSpO2 99% at 10 L/min on 40%.[facility] [id number] 18:56:00* Test Item Value Reference Range Interpretation Comments Mixed Venous Blood pH (test code = 18172-1) 7.447 7.32-7.42 [facility] [id number] 18:56:00* Test Item Value Reference Range Interpretation Comments Mixed Venous Blood PCO2 (test code = 44103-6) 43.8 40-50 [facility] [id number] 18:56:00 * Test Item Value Reference Range Interpretation Comments Mixed Venous Blood PO2 (test code = 03142-3) 37 38-42 L [facility] Ven[facility] [id number] 18:56:00* Test Item Value Reference Range Interpretation Comments Mixed Venous Blood HCO3 (test code = 93357-3) 30.2 22-26 [facility] Ven[facility] Base [id number] 18:56:00* Test Item Value Reference Range Interpretation Comments Mixed Venous Blood Base Excess (test code = 56515-5) 6 - 5-3 H [facility] Ven[facility] Blood O2 Saturation 2018-02-10 18:56:00* Test Item Value Reference Range Interpretation Comments Mixed Venous Blood O2 Saturation (test code = 11262-5) 72 70-75 Reason for ABG: PT ARRIVED BY AMBULANCE C/O SOBTRACH COLLARSpO2 99% at 10 L/min on 40%.[facility] [id number] 18:56:00* Test Item Value Reference Range Interpretation Comments Mixed Venous Blood pH (test code = 40163-9) 7.447 7.32-7.42 [facility] [id number] 18:56:00* Test Item Value Reference Range Interpretation Comments Mixed Venous Blood PCO2 (test code = 42641-3) 43.8 40-50 [facility] Ven[facility] [id number] 18:56:00 * Test Item Value Reference Range Interpretation Comments Mixed Venous Blood PO2 (test code = 65129-7) 37 38-42 L [facility] Ven[facility] [id number] 18:56:00* Test Item Value Reference Range Interpretation Comments Mixed Venous Blood HCO3 (test code = 54652-0) 30.2 22-26 [facility] Ven[facility] Base [id number] 18:56:00* Test Item Value Reference Range Interpretation Comments Mixed Venous Blood Base Excess (test code = 57659-0) 6 - 5-3 H [facility] Ven[facility] Blood O2 Saturation 2018-02-10 18:56:00* Test Item Value Reference Range Interpretation Comments Mixed Venous Blood O2 Saturation (test code = 81650-7) 72 70-75 Reason for ABG: PT ARRIVED BY AMBULANCE C/O SOBTRACH COLLARSpO2 99% at 10 L/min on 40%.[facility] [id number] 18:56:00* Test Item Value Reference Range Interpretation Comments Mixed Venous Blood pH (test code = 81371-2) 7.447 7.32-7.42 H [facility] [id number] 18:56:00* Test Item Value Reference Range Interpretation Comments Mixed Venous Blood PCO2 (test code = 90878-5) 43.8 40-50 [facility] [id number] 18:56:00 * Test Item Value Reference Range Interpretation Comments Mixed Venous Blood PO2 (test code = 92976-1) 37 38-42 L [facility] Ven[facility] [id number] 18:56:00* Test Item Value Reference Range Interpretation Comments Mixed Venous Blood HCO3 (test code = 30733-3) 30.2 22-26 [facility] Base [id number] 18:56:00* Test Item Value Reference Range Interpretation Comments Mixed Venous Blood Base Excess (test code = 77527-6) 6 - 5-3 [facility] O2 Saturation 2018-02-10 18:56:00* Test Item Value Reference Range Interpretation Comments Mixed Venous Blood O2 Saturation (test code = 15342-3) 72 70-75 Reason for ABG: PT ARRIVED BY AMBULANCE C/O SOBTRACH COLLARSpO2 99% at 10 L/min on 40%.[facility] Blood [id number] 18:56:00* Test Item Value Reference Range Interpretation Comments Mixed Venous Blood pH (test code = 28691-5) 7.447 7.32-7.42 [facility] [id number] 18:56:00* Test Item Value Reference Range Interpretation Comments Mixed Venous Blood PCO2 (test code = 34516-3) 43.8 40-50 [facility] [id number] 18:56:00 * Test Item Value Reference Range Interpretation Comments Mixed Venous Blood PO2 (test code = 38405-1) 37 38-42 L [facility] [id number] 18:56:00* Test Item Value Reference Range Interpretation Comments Mixed Venous Blood HCO3 (test code = 95145-0) 30.2 22-26 [facility] Ven[facility] Blood Base [id number] 18:56:00* Test Item Value Reference Range Interpretation Comments Mixed Venous Blood Base Excess (test code = 05652-1) 6 - 5-3 H [facility] Venous Blood O2 Saturation 2018-02-10 18:56:00* Test Item Value Reference Range Interpretation Comments Mixed Venous Blood O2 Saturation (test code = 02578-5) 72 70-75 Reason for ABG: PT ARRIVED BY AMBULANCE C/O SOBTRACH COLLARSpO2 99% at 10 L/min on 40%.[facility] [id number] 18:56:00* Test Item Value Reference Range Interpretation Comments Mixed Venous Blood pH (test code = 59575-1) 7.447 7.32-7.42 [facility] Ven[facility] [id number] 18:56:00* Test Item Value Reference Range Interpretation Comments Mixed Venous Blood PCO2 (test code = 62114-3) 43.8 40-50 [facility] Ven[facility] [id number] 18:56:00 * Test Item Value Reference Range Interpretation Comments Mixed Venous Blood PO2 (test code = 35761-7) 37 38-42 L [facility] Ven[facility] Blood [id number] 18:56:00* Test Item Value Reference Range Interpretation Comments Mixed Venous Blood HCO3 (test code = 89148-7) 30.2 22-26 H [facility] Venous Blood Base [id number] 18:56:00* Test Item Value Reference Range Interpretation Comments Mixed Venous Blood Base Excess (test code = 71219-5) 6 - 5-3 H [facility] Venous Blood O2 Saturation 2018-02-10 18:56:00* Test Item Value Reference Range Interpretation Comments Mixed Venous Blood O2 Saturation (test code = 40858-4) 72 70-75 Reason for ABG: PT ARRIVED BY AMBULANCE C/O SOBTRACH COLLARSpO2 99% at 10 L/min on 40%.[facility] [id number] 18:56:00* Test Item Value Reference Range Interpretation Comments Mixed Venous Blood pH (test code = 34755-4) 7.447 7.32-7.42 H [facility] Ven[facility] Blood [id number] 18:56:00* Test Item Value Reference Range Interpretation Comments Mixed Venous Blood PCO2 (test code = 65417-9) 43.8 40-50 [facility] Ven[facility] [id number] 18:56:00 * Test Item Value Reference Range Interpretation Comments Mixed Venous Blood PO2 (test code = 24549-6) 37 38-42 L [facility] Ven[facility] Blood [id number] 18:56:00* Test Item Value Reference Range Interpretation Comments Mixed Venous Blood HCO3 (test code = 00873-5) 30.2 22-26 H [facility] Venous Blood Base [id number] 18:56:00* Test Item Value Reference Range Interpretation Comments Mixed Venous Blood Base Excess (test code = 95755-9) 6 - 5-3 H [facility] Venous Blood O2 Saturation 2018-02-10 18:56:00* Test Item Value Reference Range Interpretation Comments Mixed Venous Blood O2 Saturation (test code = 79853-7) 72 70-75 Reason for ABG: PT ARRIVED BY AMBULANCE C/O SOBTRACH COLLARSpO2 99% at 10 L/min on 40%.[facility] [id number] 18:56:00* Test Item Value Reference Range Interpretation Comments Mixed Venous Blood pH (test code = 12811-3) 7.447 7.32-7.42 H [facility] Venous Blood [id number] 18:56:00* Test Item Value Reference Range Interpretation Comments Mixed Venous Blood PCO2 (test code = 40885-7) 43.8 40-50 [facility] [id number] 18:56:00 * Test Item Value Reference Range Interpretation Comments Mixed Venous Blood PO2 (test code = 34770-8) 37 38-42 L [facility] Ven[facility] Blood [id number] 18:56:00* Test Item Value Reference Range Interpretation Comments Mixed Venous Blood HCO3 (test code = 94397-8) 30.2 22-26 H [facility] Ven[facility] Blood Base [id number] 18:56:00* Test Item Value Reference Range Interpretation Comments Mixed Venous Blood Base Excess (test code = 33710-9) 6 - 5-3 H [facility] Venous Blood O2 Saturation 2018-02-10 18:56:00* Test Item Value Reference Range Interpretation Comments Mixed Venous Blood O2 Saturation (test code = 67193-1) 72 70-75 Reason for ABG: PT ARRIVED BY AMBULANCE C/O SOBTRACH COLLARSpO2 99% at 10 L/min on 40%.[facility] [id number] 18:56:00* Test Item Value Reference Range Interpretation Comments Mixed Venous Blood pH (test code = 17768-4) 7.447 7.32-7.42 H [facility] Ven[facility] Blood [id number] 18:56:00* Test Item Value Reference Range Interpretation Comments Mixed Venous Blood PCO2 (test code = 44687-4) 43.8 40-50 [facility] Ven[facility] [id number] 18:56:00 * Test Item Value Reference Range Interpretation Comments Mixed Venous Blood PO2 (test code = 59964-9) 37 38-42 L [facility] Ven[facility] Blood [id number] 18:56:00* Test Item Value Reference Range Interpretation Comments Mixed Venous Blood HCO3 (test code = 71023-9) 30.2 22-26 [facility] Ven[facility] Blood Base [id number] 18:56:00* Test Item Value Reference Range Interpretation Comments Mixed Venous Blood Base Excess (test code = 43520-5) 6 - 5-3 [facility] O2 Saturation 2018-02-10 18:56:00* Test Item Value Reference Range Interpretation Comments Mixed Venous Blood O2 Saturation (test code = 98214-1) 72 70-75 Reason for ABG: PT ARRIVED BY AMBULANCE C/O SOBTRACH COLLARSpO2 99% at 10 L/min on 40%.[facility]enM[facility] [id number] 18:56:00* Test Item Value Reference Range Interpretation Comments Mixed Venous Blood pH (test code = 73069-9) 7.447 7.32-7.42 [facility] Venous Blood [id number] 18:56:00* Test Item Value Reference Range Interpretation Comments Mixed Venous Blood PCO2 (test code = 82354-7) 43.8 40-50 [facility] Venous Blood [id number] 18:56:00 * Test Item Value Reference Range Interpretation Comments Mixed Venous Blood PO2 (test code = 46110-0) 37 38-42 [facility] Venous Blood [id number] 18:56:00* Test Item Value Reference Range Interpretation Comments Mixed Venous Blood HCO3 (test code = 10011-8) 30.2 22-26 [facility] Venous Blood Base [id number] 18:56:00* Test Item Value Reference Range Interpretation Comments Mixed Venous Blood Base Excess (test code = 10060-5) 6 - 5-3 [facility] Ven[facility] O2 Saturation 2018-02-10 18:56:00* Test Item Value Reference Range Interpretation Comments Mixed Venous Blood O2 Saturation (test code = 13458-6) 72 70-75 Reason for ABG: PT ARRIVED BY AMBULANCE C/O SOBTRACH COLLARSpO2 99% at 10 L/min on 40%.[facility]enWhite Blood [id number] 18:51:00* Test Item Value Reference Range Interpretation Comments White Blood Count (test code = 6690-2) 17.67 4.8-10.8 H [facility]enRed Blood [id number] 18:51:00* Test Item Value Reference Range Interpretation Comments Red Blood Count (test code = 789-8) 4.16 3.6-5.1 [facility]enHemoglobin2018-05-25 18:51:00* Test Item Value Reference Range Interpretation Comments Hemoglobin (test code = 91788-2) 11.5 12.0-16.0 L [facility]enHematocrit2018-05-25 18:51:00* Test Item Value Reference Range Interpretation Comments Hematocrit (test code = 4544-3) 36.1 34.2-44.1 [facility]enMean Corpuscular [id number] 18:51:00* Test Item Value Reference Range Interpretation Comments Mean Corpuscular Volume (test code = 787-2) 86.8 81-99 [facility]enMean Corpuscular Egwotwbmwz6803-03-15 18:51:00* Test Item Value Reference Range Interpretation Comments Mean Corpuscular Hemoglobin (test code = 785-6) 27.6 28-32 L [facility]enMean Corpuscular Hemoglobin Concent 2018-02-10 18:51:00* Test Item Value Reference Range Interpretation Comments Mean Corpuscular Hemoglobin Concent (test code = 786-4) 31.9 31-35 [facility]enRed Cell Distribution [id number] 18:51:00* Test Item Value Reference Range Interpretation Comments Red Cell Distribution Width (test code = 53712-2) 15.9 11.7 -14.4 H [facility]enPlatelet [id number] 18:51:00* Test Item Value Reference Range Interpretation Comments Platelet Count (test code = 777-3) 152 140-360 [facility]enNeutrophils (%) (Auto)2018-02-10 18:51:00 * Test Item Value Reference Range Interpretation Comments Neutrophils (%) (Auto) (test code = 30358-5) 81.1 38.7-80.0 H [facility]enLymphocytes (%) (Auto)2018-02-10 18:51:00 * Test Item Value Reference Range Interpretation Comments Lymphocytes (%) (Auto) (test code = 736-9) 7.0 18.0-39.1 L [facility]enMonocytes (%) (Auto)2018-02-10 18:51:00* Test Item Value Reference Range Interpretation Comments Monocytes (%) (Auto) (test code = 5905-5) 7.4 4.4-11.3 [facility]enEosinophils (%) (Auto)2018-02-10 18:51:00 * Test Item Value Reference Range Interpretation Comments Eosinophils (%) (Auto) (test code = 713-8) 1.2 0.0-6.0 [facility]enBasophils (%) (Auto)2018-02-10 18:51:00* Test Item Value Reference Range Interpretation Comments Basophils (%) (Auto) (test code = 706-2) 0.5 0.0-1.0 [facility]enIM GRANULOCYTES %2018-02-10 18:51:00* Test Item Value Reference Range Interpretation Comments IM GRANULOCYTES % (test code = IM GRANULOCYTES %) 2.8 0.0- 1.0 H [facility]enNeutrophils # (Auto)2018-02-10 18:51:00* Test Item Value Reference Range Interpretation Comments Neutrophils # (Auto) (test code = 751-8) 14.3 2.1-6.9 H [facility]enLymphocytes # (Auto)2018-02-10 18:51:00* Test Item Value Reference Range Interpretation Comments Lymphocytes # (Auto) (test code = 88312-2) 1.2 1.0-3.2 [facility]enMonocytes # (Auto)2018-02-10 18:51:00* Test Item Value Reference Range Interpretation Comments Monocytes # (Auto) (test code = 742-7) 1.3 0.2-0.8 H [facility]enEosinophils # (Auto)2018-02-10 18:51:00* Test Item Value Reference Range Interpretation Comments Eosinophils # (Auto) (test code = 711-2) 0.2 0.0-0.4 [facility]enBasophils # (Auto)2018-02-10 18:51:00* Test Item Value Reference Range Interpretation Comments Basophils # (Auto) (test code = 704-7) 0.1 0.0-0.1 [facility]enAbsolute Immature Granulocyte (auto 2018-02-10 18:51:00* Test Item Value Reference Range Interpretation Comments Absolute Immature Granulocyte (auto (melina t code = Absolute Immature Granulocyte (auto) 0.49 0-0.[address] [facility] [id number] 12:02:00* Test Item Value Reference Range Interpretation Comments Bedside Glucose (test code = 84746-8) 141 70-120 H Meter ID: [id number] [facility] Glucose 2018-01-20 12:02:00* Test Item Value Reference Range Interpretation Comments Bedside Glucose (test code = 74091-1) 141 70-120 H Meter ID: [id number]lingenDifferential Total Cells Kldifzd5709-01-84 08:34:00* Test Item Value Reference Range Interpretation Comments Differential Total Cells Counted (test code = Differjesus tial Total Cells Counted) 100 [facility]enNeutrophils % (Manual)2018-01-20 08:34:00 * Test Item Value Reference Range Interpretation Comments Neutrophils % (Manual) (test code = 53059-1) 87 40-74 [facility]enBand Neutrophils %2018-01-20 08:34:00* Test Item Value Reference Range Interpretation Comments Band Neutrophils % (test code = 764-1) 1 [facility]enLymphocytes % (Manual)2018-01-20 08:34:00 * Test Item Value Reference Range Interpretation Comments Lymphocytes % (Manual) (test code = 737-7) 9 19-48 L [facility]enMonocytes % (Manual)2018-01-20 08:34:00* Test Item Value Reference Range Interpretation Comments Monocytes % (Manual) (test code = 744-3) 1 3.4-9.0 L [facility]enMetamyelocytes %2018-01-20 08:34:00* Test Item Value Reference Range Interpretation Comments Metamyelocytes % (test code = 740-1) 1 0-0 H [facility] HarlingenHypersegmented Cwftvaquxqt2560-32-30 08:34:00* Test Item Value Reference Range Interpretation Comments Hypersegmented Neutrophils (test code = 765-8) FEW [facility]lingenReactive Wgnmwumvrwj8405-67-56 08:34:00* Test Item Value Reference Range Interpretation Comments Reactive Lymphocytes (test code = 50297-0) 1 [facility]enPlatelet Saavxetw6211-31-25 08:34:00* Test Item Value Reference Range Interpretation Comments Platelet Estimate (test code = 73549-5) SLIGHTLY DECREASED [facility] HarlingenPlatelet Morphology Pohlozr6373-30-12 08:34:00* Test Item Value Reference Range Interpretation Comments Platelet Morphology Comment (test code = 61450-7) FEW LARGE [facility]enRed Cell Morphology Lgoomxa8283-15-19 08:34:00* Test Item Value Reference Range Interpretation Comments Red Cell Morphology Comment (test code = 6742-1) NORMAL [facility]enBand Neutrophils %2018-01-20 08:34:00* Test Item Value Reference Range Interpretation Comments Band Neutrophils % (test code = 764-1) 1 [facility]enMetamyelocytes %2018-01-20 08:34:00* Test Item Value Reference Range Interpretation Comments Metamyelocytes % (test code = 740-1) 1 0-0 H [facility]enHypersegmented Lovtztcjdkp4671-16-57 08:34:00* Test Item Value Reference Range Interpretation Comments Hypersegmented Neutrophils (test code = 765-8) FEW [facility]enReactive Kelerijjukz7203-33-46 08:34:00* Test Item Value Reference Range Interpretation Comments Reactive Lymphocytes (test code = 99913-2) 1 [facility]enHypersegmented Djlauhyptty9051-43-26 08:34:00* Test Item Value Reference Range Interpretation Comments Hypersegmented Neutrophils (test code = 765-8) FEW [facility]enHypersegmented Cksmgpzpwqi9577-81-38 08:34:00* Test Item Value Reference Range Interpretation Comments Hypersegmented Neutrophils (test code = 765-8) [facility]W [facility] Ryjvpsaxlsc4595-24-20 08:34:00* Test Item Value Reference Range Interpretation Comments Hypersegmented Neutrophils (test code = 765-8) FEW [facility]enHypersegmented Ninmdjaovqj6184-31-35 08:34:00* Test Item Value Reference Range Interpretation Comments Hypersegmented Neutrophils (test code = 765-8) FEW [facility]enHypersegmented Ckhepwkwoar3768-23-53 08:34:00* Test Item Value Reference Range Interpretation Comments Hypersegmented Neutrophils (test code = 765-8) FEW [facility]enHypersegmented Zxakzvdyuyk6613-76-20 08:34:00* Test Item Value Reference Range Interpretation Comments Hypersegmented Neutrophils (test code = 765-8) FEW [facility]enHypersegmented Elcvhmjectc7595-07-88 08:34:00* Test Item Value Reference Range Interpretation Comments Hypersegmented Neutrophils (test code = 765-8) [facility]W [facility] Fmpzlmbmavd9059-40-55 08:34:00* Test Item Value Reference Range Interpretation Comments Hypersegmented Neutrophils (test code = 765-8) FEW [facility]enHypersegmented Lpmdaoilgii1532-26-52 08:34:00* Test Item Value Reference Range Interpretation Comments Hypersegmented Neutrophils (test code = 765-8) [facility] Rwfixteufdl8238-01-62 08:34:00* Test Item Value Reference Range Interpretation Comments Hypersegmented Neutrophils (test code = 765-8) [facility] Blood Uhbeg5178-09-99 07:20:00* Test Item Value Reference Range Interpretation Comments White Blood Count (test code = 6690-2) 12.66 4.8-10.8 [facility] Blood Byvnv9228-15-43 07:20:00* Test Item Value Reference Range Interpretation Comments Red Blood Count (test code = 789-8) 3.70 3.6-5.1 [facility]en[facility]emoglobin2018-05-04 07:20:00* Test Item Value Reference Range Interpretation Comments Hemoglobin (test code = 07152-4) 10.1 12.0-16.0 L [facility]enHematocrit2018-05-04 07:20:00* Test Item Value Reference Range Interpretation Comments Hematocrit (test code = 4544-3) 31.7 34.2-44.1 L [facility]enMean Corpuscular Ruvqlw5362-48-50 07:20:00* Test Item Value Reference Range Interpretation Comments Mean Corpuscular Volume (test code = 787-2) 85.7 81-99 [facility]enMean Corpuscular Ayohtzggrr5157-39-59 07:20:00* Test Item Value Reference Range Interpretation Comments Mean Corpuscular Hemoglobin (test code = 785-6) 27.3 28-32 L [facility] Corp[facility] Hemoglobin Concent 2018-01-20 07:20:00* Test Item Value Reference Range Interpretation Comments Mean Corpuscular Hemoglobin Concent (test code = 786-4) 31.9 31-35 [facility]en[facility] Cell Distribution Shxqu6578-28-35 07:20:00* Test Item Value Reference Range Interpretation Comments Red Cell Distribution Width (test code = 67039-1) 15.9 11.7 -14.4 H [facility]enPlatelet Rlynh9595-05-66 07:20:00* Test Item Value Reference Range Interpretation Comments Platelet Count (test code = 777-3) 82 140-360 L [facility]enNeutrophils (%) (Auto)2018-01-20 07:20:00 * Test Item Value Reference Range Interpretation Comments Neutrophils (%) (Auto) (test code = 58805-2) 79.3 38.7-80.0 [facility]enLymphocytes (%) (Auto)2018-01-20 07:20:00 * Test Item Value Reference Range Interpretation Comments Lymphocytes (%) (Auto) (test code = 736-9) 8.1 18.0-39.1 L [facility]enMonocytes (%) (Auto)2018-01-20 07:20:00* Test Item Value Reference Range Interpretation Comments Monocytes (%) (Auto) (test code = 5905-5) 9.2 4.4-11.3 [facility]enEosinophils (%) (Auto)2018-01-20 07:20:00 * Test Item Value Reference Range Interpretation Comments Eosinophils (%) (Auto) (test code = 713-8) 1.4 0.0-6.0 [facility]enBasophils (%) (Auto)2018-01-20 07:20:00* Test Item Value Reference Range Interpretation Comments Basophils (%) (Auto) (test code = 706-2) 0.3 0.0-1.0 [facility]enIM GRANULOCYTES %2018-01-20 07:20:00* Test Item Value Reference Range Interpretation Comments IM GRANULOCYTES % (test code = IM GRANULOCYTES %) 1.7 0.0- 1.0 H [facility]enNeutrophils # (Auto)2018-01-20 07:20:00* Test Item Value Reference Range Interpretation Comments Neutrophils # (Auto) (test code = 751-8) 10.0 2.1-6.9 H [facility]enLymphocytes # (Auto)2018-01-20 07:20:00* Test Item Value Reference Range Interpretation Comments Lymphocytes # (Auto) (test code = 21675-6) 1.0 1.0-3.2 [facility]enMonocytes # (Auto)2018-01-20 07:20:00* Test Item Value Reference Range Interpretation Comments Monocytes # (Auto) (test code = 742-7) 1.2 0.2-0.8 H [facility]enEosinophils # (Auto)2018-01-20 07:20:00* Test Item Value Reference Range Interpretation Comments Eosinophils # (Auto) (test code = 711-2) 0.2 0.0-0.4 [facility]enBasophils # (Auto)2018-01-20 07:20:00* Test Item Value Reference Range Interpretation Comments Basophils # (Auto) (test code = 704-7) 0.0 0.0-0.1 [facility]enAbsolute Immature Granulocyte (auto 2018-01-20 07:20:00* Test Item Value Reference Range Interpretation Comments Absolute Immature Granulocyte (auto (melina t code = Absolute Immature Granulocyte (auto) 0.21 0-0.1 [facility] Hospitalodium Wczac3723-91-72 07:17:00* Test Item Value Reference Range Interpretation Comments Sodium Level (test code = 2951-2) 136 136-145 [facility]enPotassium Lzhno5998-85-71 07:17:00* Test Item Value Reference Range Interpretation Comments Potassium Level (test code = 2823-3) 3.1 3.5-5.1 L [facility]enChloride Ishus0780-62-01 07:17:00* Test Item Value Reference Range Interpretation Comments Chloride Level (test code = 2075-0) 95 98-107 L [facility] HarlingenCarbon Dioxide Zoayc2261-85-82 07:17:00* Test Item Value Reference Range Interpretation Comments Carbon Dioxide Level (test code = 2028-9) 32 22-29 H [facility]enAnion Mqq2577-56-91 07:17:00* Test Item Value Reference Range Interpretation Comments Anion Gap (test code = 46684-8) 12.1 8-16 [facility]enBlood Urea Gofanglp1676-33-82 07:17:00* Test Item Value Reference Range Interpretation Comments Blood Urea Nitrogen (test code = 3094-0) 11 7-26 [facility]enCreatinine2018-05-04 07:17:00* Test Item Value Reference Range Interpretation Comments Creatinine (test code = 2160-0) 0.59 0.57-1.11 [facility]enBUN/Creatinine Zlzvg1801-07-70 07:17:00* Test Item Value Reference Range Interpretation Comments BUN/Creatinine Ratio (test code = 3097-3) 19 6-25 [facility] HarlingenEstimat Glomerular Filtration Rate 2018-01-20 07:17:00* Test Item Value Reference Range Interpretation Comments Estimat Glomerular Filtration Rate (test code = 27058-9) 60- >60 Ranges were taken from the National Kidney Disease Education Program and the [facility] Kidney Foundation literature.Reference ranges:60 or greater: Fpgsfx51-02 ( for 3 consecutive months): Chronic kidney disease 15 or less: Kidney failureVal[facility] – [facility]lingenGlucose Beqfc0117-27-62 07:17:00* Test Item Value Reference Range Interpretation Comments Glucose Level (test code = HSP2743) 140 74-118 H [facility]enCalcium Lxgev2320-33-52 07:17:00* Test Item Value Reference Range Interpretation Comments Calcium Level (test code = 91710-3) 8.3 8.4-10.2 L [facility]enMagnesium Jyypn6151-07-99 07:17:00* Test Item Value Reference Range Interpretation Comments Magnesium Level (test code = 63831-6) 1.4 1.3-2.1 [facility]enMagnesium Ljhib5976-12-13 07:17:00* Test Item Value Reference Range Interpretation Comments Magnesium Level (test code = 86010-9) 1.4 1.3-2.1 [facility]enEosinophils % (Manual)2018-01-19 08:56:00 * Test Item Value Reference Range Interpretation Comments Eosinophils % (Manual) (test code = 714-6) 1 0-7 [facility]enHypochromasia2018-05-03 08:56:00* Test Item Value Reference Range Interpretation Comments Hypochromasia (test code = 728-6) SLIGHT [facility]enAnisocytosis2018-05-03 08:56:00* Test Item Value Reference Range Interpretation Comments Anisocytosis (test code = 702-1) SLIGHT [facility]enEosinophils % (Manual)2018-01-19 08:56:00 * Test Item Value Reference Range Interpretation Comments Eosinophils % (Manual) (test code = 714-6) 1 0-7 [facility]enAnisocytosis2018-05-03 08:56:00* Test Item Value Reference Range Interpretation Comments Anisocytosis (test code = 702-1) SLIGHT [facility]enMyelocytes %2018-01-18 08:30:00* Test Item Value Reference Range Interpretation Comments Myelocytes % (test code = 749-2) 4 0-0 H [facility]enPoikilocytosis2018-05-02 08:30:00* Test Item Value Reference Range Interpretation Comments Poikilocytosis (test code = 779-9) SLIGHT [facility]enMyelocytes %2018-01-18 08:30:00* Test Item Value Reference Range Interpretation Comments Myelocytes % (test code = 749-2) 4 0-0 [facility] 08:30:00* Test Item Value Reference Range Interpretation Comments Poikilocytosis (test code = 779-9) SLIGHT [facility]2018-04-30 11:07:00* Test Item Value Reference Range Interpretation Comments Smudge Cells (test code = 7798-2) FEW [facility]2018-04-30 11:07:00* Test Item Value Reference Range Interpretation Comments Smudge Cells (test code = 7798-2) FEW [facility]2018-04-30 11:07:00* Test Item Value Reference Range Interpretation Comments Smudge Cells (test code = 7798-2) [facility]2018-04-30 11:07:00* Test Item Value Reference Range Interpretation Comments Smudge Cells (test code = 7798-2) FEW [facility]2018-04-30 11:07:00* Test Item Value Reference Range Interpretation Comments Smudge Cells (test code = 7798-2) [facility]2018-04-30 11:07:00* Test Item Value Reference Range Interpretation Comments Smudge Cells (test code = 7798-2) [facility]2018-04-30 11:07:00* Test Item Value Reference Range Interpretation Comments Smudge Cells (test code = 7798-2) [facility]2018-04-30 11:07:00* Test Item Value Reference Range Interpretation Comments Smudge Cells (test code = 7798-2) [facility]2018-04-30 11:07:00* Test Item Value Reference Range Interpretation Comments Smudge Cells (test code = 7798-2) [facility]2018-04-30 11:07:00* Test Item Value Reference Range Interpretation Comments Smudge Cells (test code = 7798-2) [facility]2018-04-30 11:07:00* Test Item Value Reference Range Interpretation Comments Smudge Cells (test code = 7798-2) [facility]2018-04-30 11:07:00* Test Item Value Reference Range Interpretation Comments Smudge Cells (test code = 7798-2) [facility]landBacteria identification in sputum by respiratory cscjaex1137-37-47 12:38:00* Test Item Value Reference Range Interpretation Comments Sputum Culture (test code = 624-7) Organism: STAPHYLOCOCCUS AUREUS- MRSA [facility]enBacteria identification in sputum by respiratory lkgxxbp2439-61-35 12:38:00* Test Item Value Reference Range Interpretation Comments Sputum Culture (test code = 624-7) Organism: STAPHYLOCOCCUS AUREUS- MRSA [facility]enClostridium Difficile Toxin A & B 2018-01-13 10:01:00* Test Item Value Reference Range Interpretation Comments Clostridium Difficile Toxin A & B (test code = 554337327) POSI TIVE NEGATIVE H Results called to Sofy De Leon RN at 0953 on 01/13/18 by Nitza Titus. RANJANA [place].Results called to HOLLY KEENAN in infection control at 0953 on 01/13/18 by Mo seth Titus.Testing on stool aspirate specimens is outside supervisor uranium processing claims since specimen type not validated on this assay.[facility]enClostridium Difficile Toxin A & [id number] 10:01:00* Test Item Value Reference Range Interpretation Comments Clostridium Difficile Toxin A & B (test code = 055517471) POSI TIVE NEGATIVE H Results called to Sofy De Leon RN at 0953 on 01/13/18 by Nitza Titus. RANJANA [place].Results called to HOLLY KEENAN in infection control at 0953 on 01/13/18 by Mo seth Titus.Testing on stool aspirate specimens is outside supervisor uranium processing claims since specimen type not validated on this assay.[facility]enArterial Blood [id number] 11:58:00* Test Item Value Reference Range Interpretation Comments Arterial Blood pH (test code = 2744-1) 7.46 7.31-7.41 H [facility]enArterial Blood Partial Pressure CO2 2018-01-12 11:58:00* Test Item Value Reference Range Interpretation Comments Arterial Blood Partial Pressure CO2 (test code = 2019-8) 57 41-51 H [facility]enArterial Blood Partial Pressure O2 2018-01-12 11:58:00* Test Item Value Reference Range Interpretation Comments Arterial Blood Partial Pressure O2 (test code = 2019-8) 116 80-105 H [facility]enArterial Blood [id number] 11:58:00* Test Item Value Reference Range Interpretation Comments Arterial Blood HCO3 (test code = 1960-4) 40 23-28 H [facility]enArterial Blood Base Qrrmlj5699-74-81 11:58:00* Test Item Value Reference Range Interpretation Comments Arterial Blood Base Excess (test code = 1925-7) 16.0 -2-3 H [facility]enArterial Blood Oxygen Saturation 2018-01-12 11:58:00* Test Item Value Reference Range Interpretation Comments Arterial Blood Oxygen Saturation (test code = 2708-6) 99.0 95-98 H [facility]enFiO22018-04-26 11:58:00* Test Item Value Reference Range Interpretation Comments FiO2 (test code = FiO2) 50 PRVC 15 370 50% +7 RIGHT RADIALCHI [facility] CenterAr[facility] Blood [id number] 11:58:00* Test Item Value Reference Range Interpretation Comments Arterial Blood pH (test code = 2744-1) 7.46 7.31-7.41 H [facility]enArterial Blood Partial Pressure CO2 2018-01-12 11:58:00* Test Item Value Reference Range Interpretation Comments Arterial Blood Partial Pressure CO2 (test code = 2019-8) 57 41-51 H [facility]enArterial Blood Partial Pressure O2 2018-01-12 11:58:00* Test Item Value Reference Range Interpretation Comments Arterial Blood Partial Pressure O2 (test code = 2018-) 116 80-105 H [facility]enArterial Blood [id number] 11:58:00* Test Item Value Reference Range Interpretation Comments Arterial Blood HCO3 (test code = 1960-4) 40 23-28 H [facility]enArterial Blood Base Jqfvdn1305-49-48 11:58:00* Test Item Value Reference Range Interpretation Comments Arterial Blood Base Excess (test code = 1925-7) 16.0 -2-3 H [facility]enArterial Blood Oxygen Saturation 2018-01-12 11:58:00* Test Item Value Reference Range Interpretation Comments Arterial Blood Oxygen Saturation (test code = 2708-6) 99.0 95-98 H [facility] Har[facility]enFiO22018-04-26 11:58:00* Test Item Value Reference Range Interpretation Comments FiO2 (test code = FiO2) 50 PRVC 15 370 50% +7 RIGHT [facility] Triglycerides Xqjih6801-17-25 08:11:00* Test Item Value Reference Range Interpretation Comments Triglycerides Level (test code = 2571-8) 183 0-149 H [facility]enCholesterol Lihzo8121-52-87 08:11:00* Test Item Value Reference Range Interpretation Comments Cholesterol Level (test code = 2093-3) 129 0-199 Less than 200 mg/dL Low Iaox488 - 239 mg/dL Borderline Bsig943 m g/dl and greater High Risk [facility]enLDL Geveepyurob0072-22-00 08:11:00* Test Item Value Reference Range Interpretation Comments LDL Cholesterol (test code = 2089-1) 51 60-[address] [facility]L Gcehlecpkhp3299-46-71 08:11:00* Test Item Value Reference Range Interpretation Comments HDL Cholesterol (test code = 2085-9) 41 40-60 [facility]enCholesterol/HDL Ectuj6546-71-62 08:11:00 * Test Item Value Reference Range Interpretation Comments Cholesterol/HDL Ratio (test code = 9830-1) 3.1 3.0-3.6 [facility]enTriglycerides Cerxi1616-06-63 08:11:00* Test Item Value Reference Range Interpretation Comments Triglycerides Level (test code = 2571-8) 183 0-149 H [facility]enCholesterol Vzsjq2634-75-28 08:11:00* Test Item Value Reference Range Interpretation Comments Cholesterol Level (test code = 2093-3) 129 0-199 Less than 200 mg/dL Low Uvgg087 - 239 mg/dL Borderline Naaf449 m g/dl and greater High Risk [facility]enLDL Fobrhwxkqvi1388-66-73 08:11:00* Test Item Value Reference Range Interpretation Comments LDL Cholesterol (test code = 2089-1) 51 60-[address] [facility]L Vyitsevxulp7604-97-03 08:11:00* Test Item Value Reference Range Interpretation Comments HDL Cholesterol (test code = 2085-9) 41 40-60 [facility]enCholesterol/HDL Jsyvq6606-93-65 08:11:00 * Test Item Value Reference Range Interpretation Comments Cholesterol/HDL Ratio (test code = 9830-1) 3.1 3.0-3.6 [facility]enBlood Grphffi5504-92-75 18:36:00* Test Item Value Reference Range Interpretation Comments Blood Culture (test code = 41446361) NO GROWTH AFTER 5 DAYS, FINAL REPORT [facility]enBl[facility] Gdqgcjj3746-64-72 18:36:00* Test Item Value Reference Range Interpretation Comments Blood Culture (test code = 77553735) NO GROWTH AFTER 5 DAYS, FINAL REPORT [facility] Ubvqsdz5914-18-78 09:26:00* Test Item Value Reference Range Interpretation Comments Sputum Culture (test code = 624-7) Organism: ENTEROBACTER AEROGENES [facility] Uymtgyc5792-44-68 09:26:00* Test Item Value Reference Range Interpretation Comments Sputum Culture (test code = 624-7) Organism: ENTEROBACTER AEROGENES [facility]2018-[facility] 07:48:00* Test Item Value Reference Range Interpretation Comments Stomatocytes (test code = 36178-8) SLIGHT [facility]enHowell-Eugenio Saenz Tvaqfg3496-40-54 07:48:00* Test Item Value Reference Range Interpretation Comments Randle-Eugenio Saenz Bodies (test code = 7793-3) FEW [facility] HarlingenElliptocytes2018-04-23 07:48:00* Test Item Value Reference Range Interpretation Comments Elliptocytes (test code = 54726-4) [facility]IGHT [facility] Hospitaltomatocytes2018-04-23 07:48:00* Test Item Value Reference Range Interpretation Comments Stomatocytes (test code = 49786-8) SLIGHT [facility]enHowell-Eugenio Saenz Bbznia4500-15-72 07:48:00* Test Item Value Reference Range Interpretation Comments Randle-Eugenio Saenz Bodies (test code = 7793-3) FEW [facility]enElliptocytes2018-04-23 07:48:00* Test Item Value Reference Range Interpretation Comments Elliptocytes (test code = 29289-9) [facility] 07:48:00* Test Item Value Reference Range Interpretation Comments Stomatocytes (test code = 50489-2) SLIGHT [facility]enHowell-Eugenio Saenz Hrfbcy9296-98-60 07:48:00* Test Item Value Reference Range Interpretation Comments Randle-Eugenio Saenz Bodies (test code = 7793-3) [facility] 07:48:00* Test Item Value Reference Range Interpretation Comments Elliptocytes (test code = 79401-6) [facility]IGHT [facility] Hospitaltomatocytes2018-04-23 07:48:00* Test Item Value Reference Range Interpretation Comments Stomatocytes (test code = 70812-7) SLIGHT [facility]enHow[facility]-Eugenio Saenz Dpdzvr0212-58-62 07:48:00* Test Item Value Reference Range Interpretation Comments Randle-Eugenio Saenz Bodies (test code = 7793-3) FEW [facility]2018-04-23 07:48:00* Test Item Value Reference Range Interpretation Comments Elliptocytes (test code = 09031-0) [facility]IGHT [facility] Hospitaltomatocytes2018-04-23 07:48:00* Test Item Value Reference Range Interpretation Comments Stomatocytes (test code = 96901-0) SLIGHT [facility]enHowell-Eugenio Saenz Xxtjtw0728-42-25 07:48:00* Test Item Value Reference Range Interpretation Comments Randle-Eugenio Saenz Bodies (test code = 7793-3) FEW [facility]enElliptocytes2018-04-23 07:48:00* Test Item Value Reference Range Interpretation Comments Elliptocytes (test code = 45961-6) [facility] 07:48:00* Test Item Value Reference Range Interpretation Comments Stomatocytes (test code = 91725-4) [facility]IGHT [facility] Mazclg4870-45-02 07:48:00* Test Item Value Reference Range Interpretation Comments Randle-Eugenio Saenz Bodies (test code = 7793-3) FEW [facility]enElliptocytes2018-04-23 07:48:00* Test Item Value Reference Range Interpretation Comments Elliptocytes (test code = 53445-5) [facility] 07:48:00* Test Item Value Reference Range Interpretation Comments Stomatocytes (test code = 22052-0) SLIGHT [facility]enHowell-Eugenio Saenz Kdzmzh9200-29-56 07:48:00* Test Item Value Reference Range Interpretation Comments Randle-Eugenio Saenz Bodies (test code = 7793-3) FEW [facility]enElliptocytes2018-04-23 07:48:00* Test Item Value Reference Range Interpretation Comments Elliptocytes (test code = 70358-4) SLIGHT [facility]2018-04-23 07:48:00* Test Item Value Reference Range Interpretation Comments Stomatocytes (test code = 08495-4) SLIGHT [facility]enHow[facility]-Eugenio Saenz Fxqodz9076-18-75 07:48:00* Test Item Value Reference Range Interpretation Comments Randle-Eugenio Saenz Bodies (test code = 7793-3) [facility]W [facility]ocytes2018-[facility] 07:48:00* Test Item Value Reference Range Interpretation Comments Elliptocytes (test code = 64089-1) [facility] 07:48:00* Test Item Value Reference Range Interpretation Comments Stomatocytes (test code = 17247-6) SLIGHT [facility]enHow[facility]-Eugenio Saenz Qpodex2478-66-79 07:48:00* Test Item Value Reference Range Interpretation Comments Randle-Eugenio Saenz Bodies (test code = 7793-3) [facility]W [facility]ocytes2018-04-23 07:48:00* Test Item Value Reference Range Interpretation Comments Elliptocytes (test code = 59013-9) [facility] 07:48:00* Test Item Value Reference Range Interpretation Comments Stomatocytes (test code = 69543-9) SLIGHT [facility]enHow[facility]-Eugenio Saenz Seppus0531-48-77 07:48:00* Test Item Value Reference Range Interpretation Comments Randle-Eugenio Saenz Bodies (test code = 7793-3) FEW [facility]enElliptocytes2018-04-23 07:48:00* Test Item Value Reference Range Interpretation Comments Elliptocytes (test code = 58509-4) [facility]IGHT [facility]ocytes2018-04-23 07:48:00* Test Item Value Reference Range Interpretation Comments Stomatocytes (test code = 86093-6) SLIGHT [facility] Slagvw6069-31-73 07:48:00* Test Item Value Reference Range Interpretation Comments Randle-Eugenio Saenz Bodies (test code = 7793-3) FEW [facility]enElliptocytes2018-04-23 07:48:00* Test Item Value Reference Range Interpretation Comments Elliptocytes (test code = 95635-9) [facility]IGHT [facility]2018-04-23 07:48:00* Test Item Value Reference Range Interpretation Comments Stomatocytes (test code = 81430-3) SLIGHT [facility] Ysxdvj7531-86-14 07:48:00* Test Item Value Reference Range Interpretation Comments Randle-Eugenio Saenz Bodies (test code = 7793-3) FEW [facility]enElliptocytes2018-04-23 07:48:00* Test Item Value Reference Range Interpretation Comments Elliptocytes (test code = 18705-6) SLIGHT [facility] [place] Mnqpeql2654-81-38 08:28:00* Test Item Value Reference Range Interpretation Comments Urine Culture (test code = 630-4) Organism: ESCHERICHIA COLI-ESBL [facility] Pnyfmqu4995-81-54 08:28:00* Test Item Value Reference Range Interpretation Comments Urine Culture (test code = 630-4) Organism: ESCHERICHIA COLI-ESBL [facility] Lfjwoem5302-53-41 08:28:00* Test Item Value Reference Range Interpretation Comments Urine Culture (test code = 630-4) Organism: ESCHERICHIA COLI-ESBL [facility] Vdokigw3144-17-16 08:28:00* Test Item Value Reference Range Interpretation Comments Urine Culture (test code = 630-4) Organism: ESCHERICHIA COLI-ESBL [facility] Oxslnmu8658-53-73 08:28:00* Test Item Value Reference Range Interpretation Comments Urine Culture (test code = 630-4) Organism: ESCHERICHIA COLI-ESBL [facility]2018-04-22 08:28:00* Test Item Value Reference Range Interpretation Comments Urine Culture (test code = 630-4) Organism: ESCHERICHIA COLI-ESBL [facility]2018-04-22 08:28:00* Test Item Value Reference Range Interpretation Comments Urine Culture (test code = 630-4) Organism: ESCHERICHIA COLI-ESBL [facility] Ilmadvq7152-84-98 08:28:00* Test Item Value Reference Range Interpretation Comments Urine Culture (test code = 630-4) Organism: ESCHERICHIA COLI-ESBL [facility] Mmtgvxo9671-19-68 08:28:00* Test Item Value Reference Range Interpretation Comments Urine Culture (test code = 630-4) Organism: ESCHERICHIA COLI-ESBL [facility] Hitdzxhac0047-75-60 08:07:00* Test Item Value Reference Range Interpretation Comments Free Thyroxine (test code = 3024-7) 0.94 0.9-1.8 [facility] (TSH) 2018-01-08 08:07:00* Test Item Value Reference Range Interpretation Comments Thyroid Stimulating Hormone (TSH) (test code = 56114-2) 1.447 0.350-4.940 [facility] Mxwrpijvm1541-35-65 08:07:00* Test Item Value Reference Range Interpretation Comments Free Thyroxine (test code = 3024-7) 0.94 0.9-1.8 [facility] Hormone (TSH) 2018-01-08 08:07:00* Test Item Value Reference Range Interpretation Comments Thyroid Stimulating Hormone (TSH) (test code = 57892-1) 1.447 0.350-4.940 [facility]enHemoglobin A1c Vlisexx3214-67-12 07:21:00 * Test Item Value Reference Range Interpretation Comments Hemoglobin A1c Percent (test code = Hemoglobin A1c Percent) 6.0 4.0-7.0 [facility]emoglobin A1c Tbbpyle7554-27-30 07:21:00 * Test Item Value Reference Range Interpretation Comments Hemoglobin A1c Percent (test code = Hemoglobin A1c Percent) 6.0 4.0-7.0 [facility] [place] Tksyelkoc4071-03-30 07:30:00* Test Item Value Reference Range Interpretation Comments Total Bilirubin (test code = 1975-2) 0.6 0.2-1.2 [facility] [place]enAspartate Amino Transf (AST/SGOT) 2018-01-07 07:30:00* Test Item Value Reference Range Interpretation Comments Aspartate Amino Transf (AST/SGOT) (test code = Aspartate Amino Transf (AST/SGOT)) 13 5-34 [facility] [place]anine Aminotransferase (ALT/SGPT) 2018-01-07 07:30:00* Test Item Value Reference Range Interpretation Comments Alanine Aminotransferase (ALT/SGPT) (test code = 1742-6) 10 0-55 [facility] [place] Keldacx0199-67-89 07:30:00* Test Item Value Reference Range Interpretation Comments Total Protein (test code = 2885-2) 5.4 6.5-8.1 L [facility] [place]enAlbumin2018-04-21 07:30:00* Test Item Value Reference Range Interpretation Comments Albumin (test code = 1751-7) 2.3 3.5-5.0 L [facility]enGlobulin2018-04-21 07:30:00* Test Item Value Reference Range Interpretation Comments Globulin (test code = 17591-1) 3.1 2.3-3.5 [facility] [place]enAlbumin/Globulin Azqba2964-27-10 07:30:00 * Test Item Value Reference Range Interpretation Comments Albumin/Globulin Ratio (test code = 1759-0) 0.7 0.8-2.0 L [facility] [place]enAlkaline Sztpdiyzkuf2790-58-36 07:30:00* Test Item Value Reference Range Interpretation Comments Alkaline Phosphatase (test code = 6768-6) 100 40-150 [facility] [place]enNucleated Red Blood Hoofp4782-21-02 19:20:00* Test Item Value Reference Range Interpretation Comments Nucleated Red Blood Cells (test code = 84729-3) 4 [facility] [place]enTarget Hokyw9010-34-60 19:20:00* Test Item Value Reference Range Interpretation Comments Target Cells (test code = 65031-6) FEW [facility] [place]enNucleated Red Blood Vahwx6968-63-01 19:20:00* Test Item Value Reference Range Interpretation Comments Nucleated Red Blood Cells (test code = 32537-1) 4 [facility] Fijah3477-77-43 19:20:00* Test Item Value Reference Range Interpretation Comments Target Cells (test code = 61090-1) FEW [facility] [place]enNucleated Red Blood Nddig6358-03-34 19:20:00* Test Item Value Reference Range Interpretation Comments Nucleated Red Blood Cells (test code = 87041-1) 4 [facility] Ldvxn7596-23-47 19:20:00* Test Item Value Reference Range Interpretation Comments Target Cells (test code = 88605-5) FEW [facility] [place]enNucleated Red Blood Pmdch7899-76-58 19:20:00* Test Item Value Reference Range Interpretation Comments Nucleated Red Blood Cells (test code = 09746-5) 4 [facility] Mxhql2285-64-18 19:20:00* Test Item Value Reference Range Interpretation Comments Target Cells (test code = 74770-5) [facility] Nulys1797-88-47 19:20:00* Test Item Value Reference Range Interpretation Comments Nucleated Red Blood Cells (test code = 00266-3) 4 [facility] Qwjwy7100-18-45 19:20:00* Test Item Value Reference Range Interpretation Comments Target Cells (test code = 19064-3) FEW [facility] [place]enNucleated Red Blood Syckx2002-63-51 19:20:00* Test Item Value Reference Range Interpretation Comments Nucleated Red Blood Cells (test code = 64784-9) 4 [facility] Tfniv0587-73-52 19:20:00* Test Item Value Reference Range Interpretation Comments Target Cells (test code = 75184-8) FEW [facility] [place]enNucle[facility] Red Blood Gwfiu6641-90-19 19:20:00* Test Item Value Reference Range Interpretation Comments Nucleated Red Blood Cells (test code = 73310-2) 4 [facility] Plqxb5387-00-07 19:20:00* Test Item Value Reference Range Interpretation Comments Target Cells (test code = 30385-2) [facility] Blood Wsjmx3695-25-90 19:20:00* Test Item Value Reference Range Interpretation Comments Nucleated Red Blood Cells (test code = 87898-2) 4 [facility] Jtywg5760-78-86 19:20:00* Test Item Value Reference Range Interpretation Comments Target Cells (test code = 95667-9) [facility] Red Blood Zxgqs6287-51-63 19:20:00* Test Item Value Reference Range Interpretation Comments Nucleated Red Blood Cells (test code = 42499-5) 4 [facility] Irxma8211-32-64 19:20:00* Test Item Value Reference Range Interpretation Comments Target Cells (test code = 15416-8) [facility] Red Blood Yiozn7905-77-11 19:20:00* Test Item Value Reference Range Interpretation Comments Nucleated Red Blood Cells (test code = 34367-7) 4 [facility] Oanti4667-62-77 19:20:00* Test Item Value Reference Range Interpretation Comments Target Cells (test code = 03210-6) [facility] Red Blood Wzomp1397-74-74 19:20:00* Test Item Value Reference Range Interpretation Comments Nucleated Red Blood Cells (test code = 97453-9) 4 [facility] Cperv3719-53-95 19:20:00* Test Item Value Reference Range Interpretation Comments Target Cells (test code = 09513-4) FEW [facility] [place]enNucleated Red Blood Oypet3091-19-79 19:20:00* Test Item Value Reference Range Interpretation Comments Nucleated Red Blood Cells (test code = 20565-7) 4 [facility] [place] Bbhbx4213-86-02 19:20:00* Test Item Value Reference Range Interpretation Comments Target Cells (test code = 91416-5) FEW [facility] [place]enLactic Acid Vgdsv6335-93-03 18:18:00* Test Item Value Reference Range Interpretation Comments Lactic Acid Level (test code = Lactic Acid Level) 11.1 4.5- 19.8 [facility]enB-Type Natriuretic Ncycrfs6821-08-51 18:11:00* Test Item Value Reference Range Interpretation Comments B-Type Natriuretic Peptide (test code = 73143-2) 61.5 0-100 [facility] [place]en[facility] FJY2955-57-53 18:09:00* Test Item Value Reference Range Interpretation Comments Urine WBC (test code = 5821-4) 0-5 0-5 [facility]en[facility] JMG3594-98-43 18:09:00* Test Item Value Reference Range Interpretation Comments Urine RBC (test code = 46047-1) 11-20 0-5 H [facility] [place] Dyoseond9295-29-36 18:09:00* Test Item Value Reference Range Interpretation Comments Urine Bacteria (test code = 15716-1) MANY NONE H [facility] [place] Epithelial Dhblz5698-64-05 18:09:00 * Test Item Value Reference Range Interpretation Comments Urine Epithelial Cells (test code = 68410-6) MODERATE NONE [facility] [place] Amorphous Epsugoqb1599-60-25 18:09:00* Test Item Value Reference Range Interpretation Comments Urine Amorphous Sediment (test code = 8246-1) MANY FEW H [facility] [place]enCreatine Kinase [id number] 18:09:00* Test Item Value Reference Range Interpretation Comments Creatine Kinase MB (test code = 18838-4) 0.70 0-5.0 [facility]enTroponin L0898-50-11 18:09:00* Test Item Value Reference Range Interpretation Comments Troponin I (test code = CWE8726) 0.010 0-0.300 [facility]en[facility] FGH8441-92-37 18:09:00* Test Item Value Reference Range Interpretation Comments Urine WBC (test code = 5821-4) 0-5 0-5 [facility] [place] [id number] 18:09:00* Test Item Value Reference Range Interpretation Comments Urine RBC (test code = 90792-2) 11-20 0-5 H [facility]en[facility] Cohsudfu1797-53-05 18:09:00* Test Item Value Reference Range Interpretation Comments Urine Bacteria (test code = 64865-0) MANY NONE H [facility] Epithelial Wdzba8338-27-00 18:09:00 * Test Item Value Reference Range Interpretation Comments Urine Epithelial Cells (test code = 86644-4) MODERATE NONE [facility] Amorphous Xdefndiu7714-28-59 18:09:00* Test Item Value Reference Range Interpretation Comments Urine Amorphous Sediment (test code = 8246-1) MANY FEW H [facility] [place] Amorphous Sdhppsgk4279-03-65 18:09:00* Test Item Value Reference Range Interpretation Comments Urine Amorphous Sediment (test code = 8246-1) MANY FEW H [facility] [place] Amorphous Omssnidk8653-26-90 18:09:00* Test Item Value Reference Range Interpretation Comments Urine Amorphous Sediment (test code = 8246-1) MANY FEW H [facility] [place] Amorphous Fyzgslxb8078-17-50 18:09:00* Test Item Value Reference Range Interpretation Comments Urine Amorphous Sediment (test code = 8246-1) MANY FEW H [facility] Amorphous Wvkvsagz6420-70-88 18:09:00* Test Item Value Reference Range Interpretation Comments Urine Amorphous Sediment (test code = 8246-1) MANY FEW H [facility] Amorphous Inkwrcbj8260-64-27 18:09:00* Test Item Value Reference Range Interpretation Comments Urine Amorphous Sediment (test code = 8246-1) MANY FEW H [facility] [place] Amorphous Tokilrjp3904-96-93 18:09:00* Test Item Value Reference Range Interpretation Comments Urine Amorphous Sediment (test code = 8246-1) MANY FEW H [facility]enCreat[facility] Qyvoff7464-42-14 18:01:00* Test Item Value Reference Range Interpretation Comments Creatine Kinase (test code = 2157-6) 17 29-168 L [facility]enD-Dimer Quantitative (PE/DVT)2018-01-06 17:56:00* Test Item Value Reference Range Interpretation Comments D-Dimer Quantitative (PE/DVT) (test code = 24863-8) 3.57 0. 00-0.45 H As with all in vitro diagnostic tests, the test results should be interpreted by the physician in conjunction with clinical findings and other test results.Test results are reported in NEW D-dimer units(ug/mLFEU).[facility]en[facility] Pecru5937-53-77 17:56:00* Test Item Value Reference Range Interpretation Comments Urine Color (test code = 5778-6) YELLOW YELLOW [facility] Txmdusd5532-04-88 17:56:00* Test Item Value Reference Range Interpretation Comments Urine Clarity (test code = 95346-3) SL CLOUDY CLEAR [facility]enU[facility] Specific Wtyfbsy2586-77-46 17:56:00 * Test Item Value Reference Range Interpretation Comments Urine Specific Welling (test code = 5811-5) 1.015 1.010-1.02 5 [facility] gZ6307-51-24 17:56:00* Test Item Value Reference Range Interpretation Comments Urine pH (test code = 21957-2) 5 5-7 [facility] Leukocyte Nghdpmus2172-33-42 17:56:00* Test Item Value Reference Range Interpretation Comments Urine Leukocyte Esterase (test code = 5799-2) 1+ NEGATIVE H [facility] Gjbxinn5779-10-19 17:56:00* Test Item Value Reference Range Interpretation Comments Urine Nitrite (test code = 61370-1) POSITIVE NEGATIVE H [facility] Rbwickz2427-34-02 17:56:00* Test Item Value Reference Range Interpretation Comments Urine Protein (test code = 5804-0) NEGATIVE NEGATIVE [facility] Glucose (UA)2018-01-06 17:56:00* Test Item Value Reference Range Interpretation Comments Urine Glucose (UA) (test code = 2349-9) NEGATIVE NEGATIVE [facility] Bponkcx9427-81-64 17:56:00* Test Item Value Reference Range Interpretation Comments Urine Ketones (test code = 02970-2) NEGATIVE NEGATIVE [facility] Sdavutmldlab1166-74-62 17:56:00* Test Item Value Reference Range Interpretation Comments Urine Urobilinogen (test code = 35777-8) 0.2 0.2-1 [facility] Vtkyglxre2197-15-82 17:56:00* Test Item Value Reference Range Interpretation Comments Urine Bilirubin (test code = 1978-6) NEGATIVE NEGATIVE [facility] Sqrfk0096-83-29 17:56:00* Test Item Value Reference Range Interpretation Comments Urine Blood (test code = 44041-9) 2+ NEGATIVE H [facility]enD-Dimer Quantitative (PE/DVT)2018-01-06 17:56:00* Test Item Value Reference Range Interpretation Comments D-Dimer Quantitative (PE/DVT) (test code = 27671-9) 3.57 0. 00-0.45 H As with all in vitro diagnostic tests, the test results should be interpreted by the physician in conjunction with clinical findings and other test results.Test results are reported in NEW D-dimer units(ug/mLFEU).[facility] Tcbsm2459-02-53 17:56:00* Test Item Value Reference Range Interpretation Comments Urine Color (test code = 5778-6) YELLOW YELLOW [facility] Xogmkee7809-15-41 17:56:00* Test Item Value Reference Range Interpretation Comments Urine Clarity (test code = 79482-1) SL CLOUDY CLEAR [facility] Specific Dxyvzwa6698-43-99 17:56:00 * Test Item Value Reference Range Interpretation Comments Urine Specific Welling (test code = 5811-5) 1.015 1.010-1.02 5 [facility] qY6549-32-35 17:56:00* Test Item Value Reference Range Interpretation Comments Urine pH (test code = 64030-1) 5 5-7 [facility] Leukocyte Wlzlarcb1019-41-31 17:56:00* Test Item Value Reference Range Interpretation Comments Urine Leukocyte Esterase (test code = 5799-2) 1+ NEGATIVE H [facility] Kudxyju2164-46-03 17:56:00* Test Item Value Reference Range Interpretation Comments Urine Nitrite (test code = 82137-2) POSITIVE NEGATIVE H [facility] Ozczxmi4009-65-18 17:56:00* Test Item Value Reference Range Interpretation Comments Urine Protein (test code = 5804-0) NEGATIVE NEGATIVE [facility] Glucose (UA)2018-01-06 17:56:00* Test Item Value Reference Range Interpretation Comments Urine Glucose (UA) (test code = 2349-9) NEGATIVE NEGATIVE [facility] Strsekz5299-57-71 17:56:00* Test Item Value Reference Range Interpretation Comments Urine Ketones (test code = 41668-5) NEGATIVE NEGATIVE [facility] Mvlxoalhyoyh4944-10-35 17:56:00* Test Item Value Reference Range Interpretation Comments Urine Urobilinogen (test code = 05174-9) 0.2 0.2-1 [facility] Hyyfuoedk3504-07-00 17:56:00* Test Item Value Reference Range Interpretation Comments Urine Bilirubin (test code = 1978-6) NEGATIVE NEGATIVE [facility] Cltcm1575-50-84 17:56:00* Test Item Value Reference Range Interpretation Comments Urine Blood (test code = 82149-8) 2+ NEGATIVE H [facility]enD-Dimer Quantitative (PE/DVT)2018-01-06 17:56:00* Test Item Value Reference Range Interpretation Comments D-Dimer Quantitative (PE/DVT) (test code = 28497-9) 3.57 0. 00-0.45 H As with all in vitro diagnostic tests, the test results should be interpreted by the physician in conjunction with clinical findings and other test results.Test results are reported in NEW D-dimer units(ug/mLFEU).[facility]enD-[facility]imer Quantitative (PE/DVT)2018-01-06 17:56:00* Test Item Value Reference Range Interpretation Comments D-Dimer Quantitative (PE/DVT) (test code = 01072-5) 3.57 0. 00-0.45 H As with all in vitro diagnostic tests, the test results should be interpreted by the physician in conjunction with clinical findings and other test results.Test results are reported in NEW D-dimer units(ug/mLFEU).[facility]enD-[facility]imer Quantitative (PE/DVT)2018-01-06 17:56:00* Test Item Value Reference Range Interpretation Comments D-Dimer Quantitative (PE/DVT) (test code = 59194-6) 3.57 0. 00-0.45 H As with all in vitro diagnostic tests, the test results should be interpreted by the physician in conjunction with clinical findings and other test results.Test results are reported in NEW D-dimer units(ug/mLFEU).[facility]enD-Dimer Quantitative (PE/DVT)2018-01-06 17:56:00* Test Item Value Reference Range Interpretation Comments D-Dimer Quantitative (PE/DVT) (test code = 47969-3) 3.57 0. 00-0.45 H As with all in vitro diagnostic tests, the test results should be interpreted by the physician in conjunction with clinical findings and other test results.Test results are reported in NEW D-dimer units(ug/mLFEU).[facility]enD-[facility]imer Quantitative (PE/DVT)2018-01-06 17:56:00* Test Item Value Reference Range Interpretation Comments D-Dimer Quantitative (PE/DVT) (test code = 38406-8) 3.57 0. 00-0.45 H As with all in vitro diagnostic tests, the test results should be interpreted by the physician in conjunction with clinical findings and other test results.Test results are reported in NEW D-dimer units(ug/mLFEU).[facility]enD-[facility]imer Quantitative (PE/DVT)2018-01-06 17:56:00* Test Item Value Reference Range Interpretation Comments D-Dimer Quantitative (PE/DVT) (test code = 19060-9) 3.57 0. 00-0.45 H As with all in vitro diagnostic tests, the test results should be interpreted by the physician in conjunction with clinical findings and other test results.Test results are reported in NEW D-dimer units(ug/mLFEU).[facility]enD-[facility]imer Quantitative (PE/DVT)2018-01-06 17:56:00* Test Item Value Reference Range Interpretation Comments D-Dimer Quantitative (PE/DVT) (test code = 85506-6) 3.57 0. 00-0.45 H As with all in vitro diagnostic tests, the test results should be interpreted by the physician in conjunction with clinical findings and other test results.Test results are reported in NEW D-dimer units(ug/mLFEU).[facility]enD-[facility]imer Quantitative (PE/DVT)2018-01-06 17:56:00* Test Item Value Reference Range Interpretation Comments D-Dimer Quantitative (PE/DVT) (test code = 73795-8) 3.57 0. 00-0.45 H As with all in vitro diagnostic tests, the test results should be interpreted by the physician in conjunction with clinical findings and other test results.Test results are reported in NEW D-dimer units(ug/mLFEU).[facility]enD-[facility]imer Quantitative (PE/DVT)2018-01-06 17:56:00* Test Item Value Reference Range Interpretation Comments D-Dimer Quantitative (PE/DVT) (test code = 76587-9) 3.57 0. 00-0.45 H As with all in vitro diagnostic tests, the test results should be interpreted by the physician in conjunction with clinical findings and other test results.Test results are reported in NEW D-dimer units(ug/mLFEU).[facility]enD-[facility]imer Quantitative (PE/DVT)2018-01-06 17:56:00* Test Item Value Reference Range Interpretation Comments D-Dimer Quantitative (PE/DVT) (test code = 67930-4) 3.57 0. 00-0.45 H As with all in vitro diagnostic tests, the test results should be interpreted by the physician in conjunction with clinical findings and other test results.Test results are reported in NEW D-dimer units(ug/mLFEU).[facility]enProthrombin Nfhq9048-67-40 17:54:00* Test Item Value Reference Range Interpretation Comments Prothrombin Time (test code = 5902-2) 14.5 11.9-14.5 [facility]enProthromb Time International Ratio 2018-01-06 17:54:00* Test Item Value Reference Range Interpretation Comments Prothromb Time International Ratio (test code = 6301-6) 1.22 Oral Anticoagulant Therapy INR Values:1. Low Intensity Therapy 1.5 - 2.02 . Moderate Intensity Therapy 2.0 - 3.03. High Intensity Therapy(1) 2.5 - 3. 54. High Intensity Therapy(2) 3.0 - 4.05. Panic Value INR > 5.0 [facility]enActivated Partial Thromboplast Time 2018-01-06 17:54:00* Test Item Value Reference Range Interpretation Comments Activated Partial Thromboplast Time (test code = 22533-4) 31.4 23.8-35.5 [facility] [place] N[facility]K W/O ESTSTZHS2317-16-82 16:43:00 Name: MOJGAN CUMMINGS [facility] : 1950 Age/S: 67 / [facility] [address] [facility]: [id number] [place] [address] Phys: Ritchie Kerns MD Acct: [id number] Di s Date: Status: UNK PHONE #: [phone] Exam Date: 11/07/2017 1521 FAX #: Reason: Evaluate for tracheal stenosis EXAMS: CPT CODE: [id number] CT NECK W/O C ONTRAST 16537 HISTORY: Tracheal stenosi s TECHNIQUE: 2.5 mm [...] MD; Torsten Stein Toby C DO Technologist:Cindy Paredes RT(R); MISTY Jeong CTDI: DLP: Trnscb Date/Time: 11/07/2017 (0615) [email or web address] Orig Print D/T: S: 11/07/2017 (3443) PAGE 1 Signed Report - CT NECK W/O [id number] 16:43:00 Name: MOJGAN CUMMINGS [facility] : 1950 Age/S: 67 / F [address] [facility] Unit #: [id number] Loc: [place] [address] Phys: Ritchie Kerns MD Acct: [id number] Di s Date: Status: UNK PHONE #: Exam Date: 11/07/2017 1526 FAX #: Reason: Evaluate for tracheal stenosis EXAMS: CPT CODE: [id number] CT NECK W/O C ONTRAST 97182 HISTORY: Tracheal stenosi s TECHNIQUE: 2.5 mm [...] No t manjeet stenosis is observed. at 9095 Reported and signed by: Lenka Farrar D.O. CC: Mark Anthony Kerns MD; Ilan Stein; Oswald Hernández DO Technologist:Cindy Paredes RT(R); MISTY Jeong CTDI: DLP: Trnscb Date/Time: 11/07/2017 (9133) [email or web address] Orig Print D/T: S: 11/07/2017 (3122) PAGE 1 Signed Report - XR CHEST 1 [id number] 07:27:00 FAX: Mark Anthony Parker MD [phone] [place]: St: [facility] FAX: Ilan Holt MD FAX: Oswald Howard DO [phone] Name: MOJGAN CUMMINGS [facility] : 1950 Age/S: 67/F [address] it #: [id number] [facility]: [facility] [place] [address] Phys: Mark Anthony Kerns MD Acct: [id number] Dis Date: Status: UNK PH ONE #: [phone] Exam Date: 11/05/2017 05 FAX #: [phone] Reason: REsp Failure EXAMS: CPT CODE: [id number] XR CHEST 1 V 50479 REASON FOR EXAM: REsp Failure EXAM ORDER [...] BRAY, RT(R); Mary Harris Trnscrd Date/Time/By: 2017 (0706) : By: [email or web address] Orig Print D/T: S: 11/05/2017 (0907) PAGE 1 Signed Report - XR CHEST 1 [id number] 07:27:00 FAX: Mark Anthony Parker MD [phone] [place]: St: [facility] FAX: Ilan Holt MD FAX: Oswald Howard DO [phone] Name: MOJGAN CUMMINGS [facility] : 1950 Age/S: 67/F [address] [facility]: [id number] Loc: [place] [address] Phys: Mark Anthony Kerns MD Acct: [id number] Dis Date: Status: UNK PH ONE #: [phone] Exam Date: 11/05/2017512 FAX #: [phone] Reason: REsp Failure EXAMS: CPT CODE: [id number] XR CHEST 1 V 79384 REASON FOR EXAM: REsp Failure EXAM ORDER DATE: 11/05/2017 6:00 AM Ordering M.D.: Mark Anthony Kerns [...] 1 Signed Report - XR CHEST 1 [id number] 22:54:00 FAX: Shabbir Puentes MD [place]: St: [facility] Name: Calixto LOWEMOJGAN MOLINA [facility] : [birth year] Age/S: 67/F [address] Unit #: [id number] Loc: [place] [address] Phys: Shabbir Puentes MD Acct: [id number] Dis Date: Status: UNK PHONE #: [phone] Exam Date: 11/03/20172233 FAX #: [phone] Reason: CODE SEPSIS EXAMS: CPT CODE: [id number] XR CHEST 1 V 90104 EXAM: Chest x-ray, one view; INFORMATION: AMS, respiratory distress; IMPRESSION: 1. Lungs are clear; no infiltrates, edema, no effusions. 2. Tracheostomy tube in place. 3. Mild cardiomegaly. at 2957 Reported and signed by: Rex Gates M.D. CC: Shabbir Puentes MD Technologist: SABRINA MarshR; Abigail Darling Trnscrd Date/Time/By: 11/03/2017 (0449) : By: HarryGRW Orig Print D/T: S: 11/03/2017 (2887) PAGE 1 Signed Report - XR CHEST 1 [id number] 22:54:00 FAX: Shabbir Puentes MD [place]: St: [place] Name: MOJGAN SAUCEDO [facility] : [birth year] Age/S: 67/F [address] [facility] Unit #: [id number] Loc: [place] [address] Phys: Shabbir Puentes MD Acct: [id number] Dis Date: Status: [employer] PHONE #: [phone] Exam Date: 11/03/20172233 FAX #: [phone] Reason: CODE SEPSIS EXAMS: CPT CODE: [id number] XR CHEST 1 V 22511 EXAM: Chest x-ray, one view; INFORMATION: AMS, respiratory distress; IMPRESSION: 1. Lungs are clear; no infiltrates, edema, no effusions. 2. Tracheostomy tube in place. 3. Mild cardiomegaly. at 9228 Reported and signed by: Rex Gates M.D. CC: Shabbir Puentes MD Technologist: Dwight Salinas, RTInesR; Abigail Darling Trnscrd Date/Time/By: 11/03/2017 (6694) : By: HarryGRW Orig Print D/T: S: 11/03/2017 (7505) PAGE 1 Signed Report - CT HEAD/BRAIN W/O [id number] 22:28:00 Name: MOJGAN CUMMINGS [facility] : 1950 Age/S: 67 / F [address] Unit #: [id number] Loc: [place] [address] Phys: Shabbir Puentes MD Acct: [id number] Dis Date: Status: UNK PHONE #: [phone] Exam Date: 11/03/20172218 FAX #: [phone] Reason: CODE STROKE EXAMS: CPT CODE: [id number] CT HEAD/BRAIN W/O CONT 34593 EXAM: CT of the head without contrast; [...] CODING PURPOSES ONLY RESULT CODE: CVR at 2228 Reported and signed by: Rex Gates M.D. CC: Shabbir Puentes MD Technologist:Cindy Paredes RT(R); MISTY Jeong CTDI: DLP: Trnscb Date/Time: 11/03/2017 (2227) [email or web address] Orig Print D/T: S: 11/03/2017 (2001) PAGE 1 Signed Report - CT HEAD/BRAIN W/O [id number] 22:28:00 Name: MOJGAN CUMMINGS [facility] : 1950 Age/S: 67 / F [address] [facility] Unit #: [id number] Loc: [place] [address] Phys: Jayy Puentes MD Acct: [id number] Di s Date: Status: UNK PHONE #: [phone] Exam Date: 11/03/20172218 FAX #: Reason: CODE STROKE EXAMS: CPT CODE: [id number] CT HEAD/BRAIN W/O CONT 23024 EXAM: CT of the head with out [...] MISTY Salgado TDI: DLP: Trnscb Date/Time: 11/03/2017 (2227) HarryGRW Orig Print D/T: S: 11/03/2017 (944) PAGE 1 Signed Report - XR CHEST 1 [id number] 09:09:00 FAX: Mark Anthony Parker MD [phone] [place]: St: [facility] FAX: Ilan Holt MD Name: MOJGAN CUMMINGS [facility] : 1950 Age/S: 67/F [address] Unit #: [id number] Loc: [place] [address] Phys: Mark Anthony Kerns MD Acct: [id number] Dis Date: Status: UNK PHONE #: [phone] Exam Date: 10/07/2017817 FAX #: [phone] Reason: resp failure EXAMS: CPT CODE: [id number] XR CHEST 1 V 00396 HISTORY: Respiratory failure. COMPARISON: October 04, 2017. Resolving infiltrates. Patchy consolidation persists in the left upper lobe. Dependent changes. Moderate cardiomegaly. Tracheostomy tube is in good position. IMPRESSION: Decreasing infiltrate with persistent consolidation in the left upper lobe. at 0909 Reported and signed by: Clem Grissom M.D. CC: Mark Anthony Kerns MD; Ilan Stein chnologist: OCTAVIO VASQUEZ JR Trnscrd Date/ Time/By: 10/07/2017 (908) : By: [email or web address] Orig Print D/T: S: 10/07/19 18 (911) PAGE 1 Signed Report - XR CHEST 1 [id number] 09:09:00 FAX: Mark Anthony Parker MD [phone] [place]: B St: [facility] FAX: Ilan Holt MD Name: MOJGAN CUMMINGS [facility] : 1950 Age/S: 67/F [address] [facility] Unit #: [id number] Loc: [place] [address] Phys: Mark Anthony Kerns MD Acct: [id number] Dis Date: Status: UNK PHONE #: [phone] Exam Date: 10/07/2017817 FAX #: [phone] Reason: resp failure EXAMS: CPT CODE: [id number] XR CHEST 1 V 98437 HISTORY: Respiratory failure. COMPARISON: October 04, 2017. [...] [email or web address] Orig Print D/T: S: 10/07/19 18 (911) PAGE 1 Signed Report - XR CHEST 1 [id number] 04:58:00 FAX: Mark Anthony Parker MD [phone] [place]: B St: [facility] FAX: Ilan Holt MD Name: MOJGAN CUMMINGS [facility] : 1950 Age/S: 67/F [address] [facility] Unit #: [id number] Loc: [place] [address] Phys: Mark Anthony Kerns MD Acct: [id number] Dis Date: Status: UNK PHONE #: [phone] Exam Date: 10/04/2017 0448 FAX #: [phone] Reason: Resp Failure EXAMS: CPT CODE: [id number] XR CHEST 1 V 99541 HISTORY: Respiratory failure Location: C3 C OMPARISON:10/02/2017 FINDINGS: There is car diomegaly with vascular congestion perihilar edema. Tracheostomy tube is demonstrated. Right IJ central line is present. No pneumothorax. Bibasi lar opacities are present. IMPRESSION: 1. Car diomegaly with vascular congestion mild perihilar edema as well as basil ar opacities compatible with areas of atelectasis and/or edema. at 9396 Reported and signed by: Misty Vizcarra MD CC: Mark Anthony Cleveland MD; Ilan Stein Technologist: Abigail Darling Trnscrd Date/Time/By: 10/04/2017 (0458) : By: [email or web address] Orig Print D/T: S: 10/04/2017 (0500) PAGE 1 Signed Report - XR CHEST 1 [id number] 04:58:00 FAX: Mark Anthony Parker MD [phone] [place]: St: [facility] FAX: Ilan Holt MD Name: MOJGAN CUMMINGS [facility] : 1950 Age/S: 67/F [address] Unit #: [id number] Loc: [place] [address] Phys: Mark Anthony Kerns MD Acct: [id number] Dis Date: Status: UNK PHONE #: [phone] Exam Date: 10/04/2017 0444 FAX #: [phone] Reason: Resp Failure EXAMS: CPT CODE: [id number] XR CHEST 1 V 49397 HISTORY: Respiratory failure Location: C3 COMPARISON:10/02/2017 FINDINGS: There is cardiomegaly with vascular congestion perihilar edema. Tracheostomy tube is demonstrated. Right IJ central line is present. No pneumothorax. Bibasilar opacities are present. IMPRESSION: 1. Cardiomegaly with vascular congestion mild perihilar edema as well as basilar opacities compatible with areas of atelectasis and/or edema. at 0451 Reported and signed by: Misty Vizcarra MD CC: Mark Anthony Cleveland MD; Ilan Stein Technologist: Abigail Darling Trnmird Date/Time/By: 10/04/2017 (0458) : By: [email or web address] Orig Print D/T: S: 10/04/2017 (050) PAGE 1 Signed Report - XR CHEST 1 [id number] 07:21:00 FAX: Mark Anthony Parker MD [phone] [place]: St: [facility] FAX: Ilan Holt MD Name: MOJGAN CUMMINGS [facility] : 1950 Age/S: 67/F [address] Unit #: [id number] Loc: [place] [address] Phys: Mark Anthony Kerns MD Acct: [id number] Dis Date: Status: UNK PHONE #: [phone] Exam Date: 10/02/2017518 FAX #: [phone] Reason: Resp Failure EXAMS: CPT CODE: [id number] XR CHEST 1 V 01809 HISTORY: Pneumonia. COMPARISON: September 30, 2017. Right central line and tracheostomy tube are unchanged. Patchy left lung infiltrate appears improved. Dependent changes. Cardiomegaly. IMPRESSION: Patchy left lung infiltrate is unchanged. at 0721 Reported and signed by: Clem Grissom M.D. CC: Mark Anthony Kerns MD; Ilan Stein Technologist: JERAMIE LOPEZ, RT(R); Mary Harris Trnscrd Date/Time/By: 10/02/2017 (0721) : By: [email or web address] Orig Print D/T: S: 10/02/2017 (0756) PAGE 1 Signed Report - XR CHEST 1 [id number] 07:21:00 FAX: Mark Anthony Parker MD [phone] [place]: St: [facility] FAX: Ilan Holt MD Name: MOJGAN CUMMINGS [facility] : 1950 Age/S: 67/F [address] Unit #: [id number] Loc: [place] [address] Phys: Mark Anthony Kerns MD Acct: [id number] Dis Date: Status: UNK PHONE #: [phone] Exam Date: 10/02/2017518 FAX #: [phone] Reason: Resp Failure EXAMS: CPT CODE: [id number] XR CHEST 1 V 78722 HISTORY: Pneumonia. COMPARISON: September 30, 2017. Right central line and tracheostomy tube are unchanged. Patchy left lung infiltrate appears improved. Dependent changes. Cardiomegaly. IMPRESSION: Patchy left lung infiltrate is unchanged. at 0781 Reported and signed by: Clem Grissom M.D. CC: Mark Anthony Kerns MD; Ilan Stein Technologist: JERAMIE LOPEZ, RT(R); Mary Harris Trnscrd Date/Time/By: 10/02/2017 (0721) : By: [email or web address] Orig Print D/T: S: 0 10/02/2017 (0798) PAGE 1 Signed Re port - XR CHEST 1 [id number] 07:53:00 FAX: Ilan Holt MD [place]: St: [facility] FAX: Noé Nielsen MD [phone] Name: MOJGAN CUMMINGS [facility] : 1950 Age/S: 67/F [address] Unit #: [id number] Loc: [facility] [place] [address] Phys: Noé Morton MD Acct: [id number] Dis Date: Status: UNK PHONE #: [phone] Exam Date: 09/30/2017 7474 FAX #: [phone] Reason: pneumonai EXAMS: CPT CODE: [id number] XR CHEST 1 V 50695 REASON FOR EXAM: pneumonai EXAM ORDER DATE: [...] Darling Trnscrd Date/Time/By: 09/30/2017 (0753) : By: [email or web address] Orig Print D/T: S: 09/30/2017 (0756) PAGE 1 Signed Report - XR CHEST 1 [id number] 07:53:00 FAX: Ilan Holt MD [place]: St: [facility] FAX: Noé Nielsen MD [phone] Name: MOJGAN CUMMINGS [facility] : 1950 Age/S: 67/F [address] [facility] Unit #: [id number] Loc: [place] [address] Phys: Noé Morton MD Acct: [id number] Dis Date: Status: UNK PHONE #: [phone] Exam Date: 09/30/2017 2044 FAX #: [phone] Reason: pneumonai EXAMS: CPT CODE: [id number] XR CHEST 1 V 17159 REASON FOR EXAM: pneumonai EXAM ORDER DATE: [...] Darling Trnscrd Date/Time/By: 09/30/2017 (0753) : By: HarryVTL Orig Print D/T: S: 09/30/2017 (0756) PAGE 1 Signed Report - XR CHEST 1 [id number] 06:58:00 FAX: Ilan Holt MD [place]: St: [facility] FAX: Melinda Burns MD Name: MOJGAN CUMMINGS [facility] : 1950 Age/S: 67/F [address] [facility] Unit #: [id number] Loc: [place] [address] Phys: Melinda Burns MD Acct: [id number] Dis Date: Status: UNK PHONE #: [phone] Exam Date: 09/28/2017 0557 FAX #: [phone] Reason: sob/ acute resp failure EXAMS: CPT CODE: [id number] XR CHEST 1 V 10516 REASON FOR EXAM: sob/ acute resp failure [...] Ilan Stein; Melinda Burns MD Technologist: OCTAVIO VASQUEZ JR; Abigail Darling Trnscrd Date/Time/By: 09/28/2017 (0658) : By: GordoL Orig Print D/T: S: 09/28/2017 (0702) PAGE 1 Signed R eport - XR CHEST 1 [id number] 06:58:00 FAX: Ilan Holt MD [place]: St: [facility] FAX: Melinda Burns MD Name: MOJGAN CUMMINGS [facility] : 1950 Age/S: 67/F [address] [facility] Unit #: [id number] Loc: [place] [address] Phys: Melinda Burns MD Acct: [id number] Dis Date: Status: UNK PHONE #: [phone] Exam Date: 09/28/2017 0557 FAX #: [phone] Reason: sob/ acute resp failure EXAMS: CPT CODE: [id number] XR CHEST 1 V 02991 REASON FOR EXAM: sob/ acute resp failure [...] Ilan Stein; Melinda Burns MD Technologist: OCTAVIO VASQUEZ JR; Abigail Mariord Date/Time/By: 09/28/2017 (0658) : By: GordoL Orig Print D/T: S: 09/28/2017 (0755) PAGE 1 Signed R eport - XR CHEST 1 [id number] 17:34:00 FAX: Nigel Smith [place]: St: [facility] FAX: Ilan Holt MD Name: MOJGAN CUMMINGS [facility] : 1950 Age/S: 67/F [address] [facility] Unit #: [id number] Loc: [place] [address] Phys: Nigel Jones MD Acct: [id number] Dis Date: Status: UNK PHONE #: [phone] Exam Date: 09/27/2017 1710 FAX #: [phone] Reason: INITIAL ET TUBE PLACEMENT EXAMS: CPT CODE: [id number] XR CHEST 1 V 60008 HISTORY: ET tube placement. COMPARISON: Same day. ET tube is above the marlyn. Right jugular central line with the tip projected over the SVC. NG tube is not seen. Mild congestion with small basal effusions. Cardiomegaly. IMPRESSION: ET tube is above the marlyn. Mild congestion. at 7855 Reported and signed by: Clem Grissom M.D. CC: Nigel Jones MD; Ilan Stein Technologist: Misty florentino RT(R) Trnbharti Date/Time/By: 09/27/2017 ( 2998) : By: [email or web address] Orig Print D/T: S: 09/27/2017 (8081) PAGE 1 Signed Report - XR CHEST 1 [id number] 17:34:00 FAX: Nigel Smith [place]: St: [facility] FAX: Ilan Holt MD Name: MOJGAN CUMMINGS [facility] : 1950 Age/S: 67/F [address] [facility] Unit #: [id number] Loc: [place] [address] Phys: Nigel Jones MD Acct: [id number] Dis Date: Status: UNK PHONE #: [phone] Exam Date: 09/27/2017 1710 FAX #: [phone] Reason: INITIAL ET TUBE PLACEMENT EXAMS: CPT CODE: [id number] XR CHEST 1 V 91816 HISTORY: ET tube placement. COMPARISON: Same day. ET tube is above the marlyn. Right jugular central line with the tip projected over the SVC. NG tube is not seen. Mild congestion with small basal effusions. Cardiomegaly. IMPRESSION: ET tube is above the marlyn. Mild congestion. at 1734 Reported and signed by: Clem Grissom M.D. CC: Nigel Jones MD; Ilan Stein Technologist: Misty Pena RT(R) Trnscrd Date/Time/By: 09/27/2017 (1739) : By: [email or web address] Orig Print D/T: S: 09/27/2017 (5102) PAGE 1 Signed Report - XR CHEST 1 V 2017-09-27 07:51:00 FAX: Mark Anthony Parker MD [phone] [place]: B St: UNK FAX: Ilan Holt MD Name: MOJGAN CUMMINGS [facility] : 1950 Age/S: 67/F [address] Unit #: [id number] Loc: [place] [address] Phys: Mark Anthony Kerns MD Acct: [id number] Dis Date: Status: UNK PHONE #: [phone] Exam Date: 09/27/2017 0533 FAX #: [phone] Reason: Resp Failure EXAMS: CPT CODE: [id number] XR CHEST 1 V 88236 REASON FOR EXAM: Resp Failure EXAM ORDER [...] Darling Trnscrd Date/Time/By: 09/27/2017 (0751) : By: Rodrigo Orig Print D/T: S: 09/27/2017 (0754) PAGE 1 Signed Report - XR CHEST 1 [id number] 07:51:00 FAX: Mark Anthony Parker MD [phone] [place]: B St: UNK FAX: Ilan Holt MD Name: MOJGAN CUMMINGS [facility] : 1950 Age/S: 67/F [address] Unit #: [id number] Loc: [place] [address] Phys: Mark Anthony Kerns MD Acct: [id number] Dis Date: Status: UNK PHONE #: [phone] Exam Date: 09/27/2017532 FAX #: [phone] Reason: Resp Failure EXAMS: CPT CODE: [id number] XR CHEST 1 V 99773 REASON FOR EXAM: Resp Failure EXAM ORDER [...] Kerns MD; Brayden Stein Technologist: OCTAVIO Darling Trnscrd Date/Time/By: 09/27/2017 (0751) : By: Rodrigo O rig Print D/T: S: 09/27/2017 (0754) PAGE 1 Signed Report - XR CHEST 1 [id number] 07:46:00 FAX: Ilan Holt MD [place]: [facility]: [facility] FAX: Melinda Burns MD Name: MOJGAN CUMMINGS [facility] : 1950 Age/S: 67/F [address] Unit #: [id number] Loc: [place] [address] Phys: Melinda Burns MD Acct: [id number] Dis Date: Status: UNK PHONE #: [phone] Exam Date: 09/26/2017537 FAX #: [phone] Reason: sob/ acute resp failure EXAMS: CPT CODE: [id number] XR CHEST 1 V 63788 REASON FOR EXAM: sob/ acute resp failure EXAM ORDER DATE: 09/26/2017 5:00 AM Ordering Crispin: Melinda Burns MD [...] 1 Signed Report - XR CHEST 1 [id number] 07:46:00 FAX: Ilan Holt MD [place]: St: [facility] FAX: Melinda Burns MD Name: MOJGAN CUMMINGS [facility] : 1950 Age/S: 67/F [address] Unit #: [id number] Loc: [place] [address] Phys: Melinda Burns MD Acct: [id number] Dis Date: Status: UNK PHONE #: [phone] Exam Date: 09/26/201738 FAX #: [phone] Reason: sob/ acute resp failure EXAMS: CPT CODE: [id number] XR CHEST 1 V 30050 REASON FOR EXAM: sob/ acute resp failure [...] Darling Trnscrd Date/Time/By: 09/26/2017 (0746) : By: GordoL Orig Print D/T: S: 09/26/2017 (0749) PAGE 1 Signed Report - XR CHEST 1 [id number] 07:17:00 FAX: Ilan Holt MD [place]: St: [facility] FAX: Melinda Burns MD Name: MOJGAN CUMMINGS [facility] : 1950 Age/S: 67/F [address] Unit #: [id number] Loc: [place] [address] Phys: Melinda Burns MD Acct: [id number] Dis Date: Status: UNK PHONE #: [phone] Exam Date: 09/25/2017522 FAX #: [phone] Reason: sob/ acute resp failure EXAMS: CPT CODE: [id number] XR CHEST 1 V 35426 CLINICAL HISTORY: Shortness of breath; acute resp failure TECHNIQUE: AP chest x-ray COMPARISON: Previous day. IMPRESSION: Worsening airspace consolidation and pleural effusions. Cardiomegaly with pulmonary congestion. ET tube, NG tube, and right central venous catheter. at 0717 Reported and signed by: Lenka Farrar D.O. CC: Ilan Stein; Melinda Burns MD Technologist: JUNAID BRAY, RT(R); Mary Harris Trnscrd Date/Time/By: 09/25/2017 (0717) : By: [email or web address] Orig Print D/T: S: 09/25/2017 (0736) PAGE 1 Signed Report - XR CHEST 1 [id number] 07:17:00 FAX: Ilan Holt MD [place]: St: [facility] FAX: Melinda Burns MD Name: MOJGAN CUMMINGS [facility] : 1950 Age/S: 67/F [address] Unit #: [id number] Loc: [place] [address] Phys: Melinda Burns MD Acct: [id number] Dis Date: Status: UNK PHONE #: [phone] Exam Date: 09/25/2017 0523 FAX #: [phone] Reason: sob/ acute resp failure EXAMS: CPT CODE: [id number] XR CHEST 1 V 84858 CLINICAL HISTORY: Shortness of breath; acute resp [...] By: [email or web address] Orig Print D/T: S: 09/25/2017 (0720) PAGE 1 Signed Report - XR CHEST 1 [id number] 08:12:00 FAX: Ilan Holt MD [place]: St: [facility] FAX: Melinda Burns MD Name: MOJGAN CUMMINGS [facility] : 1950 Age/S: 67/F [address] [facility] Unit #: [id number] Loc: [facility] [place] [address] Phys: Melinda Burns MD Acct: [id number] Dis Date: Status: UNK PHONE #: [phone] Exam Date: 09/24/2017 05 FAX #: [phone] Reason: sob/ acute resp failure EXAMS: CPT CODE: [id number] XR CHEST 1 V 62806 REASON FOR EXAM: sob/ acute resp failure [...] Technologist: RT CISCO(R); Mary Harris Trnscrd Date/Time/By: 09/24/2017 (811) : By: GordoL Orig Print D/T: S: 09/24/2017 (16) PAGE 1 Signed Report - XR CHEST 1 [id number] 08:12:00 FAX: Ilan Holt MD [place]: St: [facility] FAX: Melinda Burns MD Name: MOJGAN CUMMINGS [facility] : 1950 Age/S: 67/F [address] [facility] Unit #: [id number] Loc: [place] [address] Phys: Melinda Burns MD Acct: [id number] Dis Date: Status: UNK PHONE #: [phone] Exam Date: 09/24/2017525 FAX #: [phone] Reason: sob/ acute resp failure EXAMS: CPT CODE: [id number] XR CHEST 1 V 23677 REASON FOR EXAM: sob/ acute resp failure [...] 1 Signed Report - XR CHEST 1 [id number] 11:26:00 FAX: Ilan Holt MD [place]: St: [facility] FAX: Melinda Burns MD Name: MOJGAN CUMMINGS [facility] : 1950 Age/S: 67/F [address] [facility] Unit #: [id number] Loc: [place] [address] Phys: Melinda Burns MD Acct: [id number] Dis Date: Status: UNK PHONE #: [phone] Exam Date: 09/23/2017 1105 FAX #: [phone] Reason: sob/ acute resp failure EXAMS: CPT CODE: [id number] XR CHEST 1 V 86423 HISTORY: Shortness of breath and respiratory failure. [...] By: [email or web address] Orig Print D/T: S: 09/26/2017 (0907) PAGE 1 Signed Report - XR CHEST 1 [id number] 11:26:00 FAX: Ilan Holt MD [place]: St: [facility] FAX: Melinda Burns MD Name: MOJGAN CUMMINGS [facility] : 1950 Age/S: 67/F [address] [facility] Unit #: [id number] Loc: [place] [address] Phys: Melinda Burns MD Acct: [id number] Dis Date: Status: UNK PHONE #: [phone] Exam Date: 09/23/2017 1105 FAX #: [phone] Reason: sob/ acute resp failure EXAMS: CPT CODE: [id number] XR CHEST 1 V 39910 HISTORY: Shortness of breath and respiratory failure. [...] ALEE(R) Trnscrd Date/Time/By: 09/23/2017 (1126) : By: [email or web address] Orig Print D/T: S: 09/26/2017 (2763) PAGE 1 Signed Report - XR CHEST 1 [id number] 12:05:00 FAX: Ilan Holt MD [place]: St: [facility] FAX: Melinda Burns MD Name: MOJGAN CUMMINGS [facility] : 1950 Age/S: 67/F [address] [facility] Unit #: [id number] Loc: [place] [address] Phys: Melinda Burns MD Acct: [id number] Dis Date: Status: UNK PHONE #: [phone] Exam Date: 09/22/2017 1206 FAX #: [phone] Reason: sob/ s/p intubation EXAMS: CPT CODE: [id number] XR CHEST 1 V 96200 HISTORY: Shortness of breath and postintubation. COMPARISON: [...] Burns MD Technologist: RT ALEE(R) Trnscrd Date/Time/By: 09/22/2017 (1204) : By: [email or web address] Orig Print D/T: S: 09/22/2017 (2007) PAGE 1 Signed Report - XR CHEST 1 [id number] 12:05:00 FAX: Ilan Holt MD [place]: B St: UNK FAX: Melinda Burns MD Name: MOJGAN CUMMINGS [facility] : 1950 Age/S: 67/F [address] [facility] Unit #: [id number] Loc: [facility] [place] [id number] Phys: Melinda Burns MD Acct: [id number] Dis Date: Status: UNK PHONE #: [phone] Exam Date: 09/22/2017 1206 FAX #: [phone] Reason: sob/ s/p intubation EXAMS: CPT CODE: [id number] XR CHEST 1 V 13361 HISTORY: Shortness of breath and postintubation. COMPARISON: [...] Technologist: JERAMIE LOPEZ RT(R) Trnscrd Date/Time/By: 09/22/2017 (1399) : By: [email or web address] Orig Print D/T: S: 09/22/2017 (5431) PAGE 1 Signed Report - XR CHEST 1 [id number] 07:33:00 FAX: lIan Holt MD [place]: B St: UNK FAX: Melinda Burns MD Name: MOJGAN CUMMINGS [facility] : 1950 Age/S: 67/F [address] Unit #: [id number] [facility]: [facility] [place] [address] Phys: Melinda Burns MD Acct: [id number] Dis Date: Status: UNK PHONE #: [phone] Exam Date: 09/22/2017526 FAX #: [phone] Reason: sob/ acute resp failure EXAMS: CPT CODE: [id number] XR CHEST 1 V 54770 REASON FOR EXAM: sob/ acute resp failure EXAM ORDER DATE: 09/22/2017 5:00 AM Ordering Crispin: Melinda Burns MD [...] edema and small bilateral pleural effusions. at 0734 Reported and signed by: Brayan Toro M.D. CC: Ilan Stein; Melinda Burns MD Technologist: OCTAVIO Darling Trnscrd Date/Time/By: 09/22/2017 (0733) : By: GordoL Orig Print D/T: S: 09/22/2017 (0715) PAGE 1 Signed Report - XR CHEST 1 [id number] 07:33:00 FAX: Ilan Holt MD [place]: St: [facility] FAX: Melinda Burns MD Name: MOJGAN CUMMINGS [facility] : 1950 Age/S: 67/F [address] Unit #: [id number] Loc: [place] [address] Phys: Melinda Burns MD Acct: [id number] Dis Date: Status: UNK PHONE #: [phone] Exam Date: 09/22/2017526 FAX #: [phone] Reason: sob/ acute resp failure EXAMS: CPT CODE: [id number] XR CHEST 1 V 19551 REASON FOR EXAM: sob/ acute resp failure EXAM ORDER DATE: 09/22/2017 5:00 AM Ordering Crispin: Melinda Burns MD [...] edema and small bilateral pleural effusions. at 0790 Reported and signed by: Brayan Toro M.D. CC: Ilan Stein; Melinda Burns MD Technologist: OCTAVIO Darling Trnscrd Date/Time/By: 09/22/2017 (0733) : By: HarryVTL Orig Print D/T: S: 09/22/2017 (0736) PAGE 1 Signed Report - XR CHEST 1 [id number] 06:00:00 FAX: Mark Anthony Parker MD [phone] [place]: St: [facility] FAX: Ilan Holt MD Name: MOJGAN CUMMINGS [facility] : 1950 Age/S: 67/F [address] Unit #: [id number] Loc: [facility] [place] [address] Phys: Mark Anthony Kerns MD Acct: [id number] Dis Date: Status: UNK PHONE #: [phone] Exam Date: 09/21/2017 0549 FAX #: [phone] Reason: REsp failure EXAMS: CPT CODE: [id number] XR CHEST 1 V 37077 HISTORY: Respiratory failure Location: C3 COMPARISON:09/20/2017 FINDINGS: [...] CC: Mark Anthony Kerns MD; Ilan Stein ologist: OCTAVIO Darling Trnscrd Date/Alcon e/By: 09/21/2017 (0600) : By: [email or web address] Orig Print D/T: S: 09/21/2017 (0603) PAGE 1 Signed Report - XR CHEST 1 [id number] 06:00:00 FAX: Mark Anthony Parker MD [phone] [place]: St: [facility] FAX: Ilan Holt MD Name: MOJGAN CUMMINGS [facility] : 1950 Age/S: 67/F [address] Unit #: [id number] Loc: [place] [address] Phys: Mark Anthony Kerns MD Acct: [id number] Dis Date: Status: UNK PHONE #: [phone] Exam Date: 09/21/2017 0549 FAX #: [phone] Reason: REsp failure EXAMS: CPT CODE: [id number] XR CHEST 1 V 51736 HISTORY: Respiratory failure Location: C3 C OMPARISON:09/20/2017 [...] 1 Signed Report - CT CHEST W/O [id number] 16:00:00 Name: MOJGAN CUMMINGS [facility] : 1950 Age/S: 67 / F [address] Unit #: [id number] Loc: [place] [address] Phys: David Burns MD Acct: [id number] Di s Date: Status: UNK PHONE #: Exam Date: 09/20/2017 1548 FAX #: Reason: SOB/ ACUTE RESP FAILURE EXAMS: CPT CODE: [id number] CT CHEST W/O CONTRAST 91975 HISTORY: Shortness of jerome ath; ACUTE RESP [...] (1600) t.[email or web address] Orig Print D/T: S: 09/20/2017 (5417) PAGE 1 Signed Report - CT CHEST W/O CONTRAST 2017-09-20 16:00:00 Name: MOJGAN CUMMINGS [facility] : 1950 Age/S: 67 / F [address] [facility] Unit #: [id number] Loc: [place] [address] Phys: Melinda Burns MD Acct: [id number] Dis Date: Status: UNK PHONE #: [phone] Exam Date: 09/20/2017 1543 FAX #: [phone] Reason: SOB/ ACUTE RESP FAILURE EXAMS: CPT CODE: [id number] CT CHEST W/O CONTRAST 28357 HISTORY: Shortness of breath; ACUTE RESP FAILURE [...] (1600) t.JOSELYNR.[email or web address] Orig Print D/T: S: 09/20/2017 (1414) PAGE 1 Signed Report - CT HEAD/BRAIN W/O CONT 2017-09-20 15:52:00 Name: MOJGAN CUMMINGS [facility] : 1950 Age/S: 67 / F [address] [facility] Unit #: [id number] Loc: [place] [address] Phys: Ilan Stein MD Acct: [id number] Dis Date: Status: UNK PHONE #: [phone] Exam Date: 09/20/2017 1548 FAX #: [phone] Reason: AMS EXAMS: CPT CODE: [id number] CT HEAD/BRAIN W/O CONT 65335 HISTORY: Altered mental status TECHNIQUE: Noncontrast 2.5 [...] Cortes RT(R),(MR),(CT); CTDI: DLP: Trnscb Date/Time: 09/20/2017 (4903) [email or web address] Orig Print D/T: S: 09/20/2017 (9078) PAGE 1 Signed Report - CT HEAD/BRAIN W/O [id number] 15:52:00 Name: MOJGAN CUMMINGS [facility] : 1950 Age/S: 67 / F [address] [facility] Unit #: [id number] Loc: [place] [address] Phys: Brayden Stein MD Acct: [id number] Di s Date: Status: UNK PHONE #: Exam Date: 09/20/2017 1548 FAX #: Reason: AMS EXAMS: CPT CODE: [id number] CT HEAD/BRAIN W/O CONT 18670 HISTORY: Altered mental status TECHNIQUE: Noncontrast 2.5 [...] RT(R),(MR),(CT); CTDI: D LP: Trnscb Date/Time: 09/20/2017 (6666) t.[email or web address] Orig Print D/T: S: 09/20/2017 (3266) PAGE 1 Signed R eport - XR CHEST 1 [id number] 05:55:00 FAX: Mark Anthony Parker MD [phone] [place]: St: [facility] FAX: Ilan Holt MD Name: MOJGAN CUMMINGS [facility] : 1950 Age/S: 67/F [address] Unit #: [id number] Loc: [place] [address] Phys: Mark Anthony Kerns MD Acct: [id number] Dis Date: Status: UNK PHONE #: [phone] Exam Date: 09/20/2017522 FAX #: [phone] Reason: REsp Failure EXAMS: CPT CODE: [id number] XR CHEST 1 V 38166 HISTORY: Respiratory failure Location: C3 C OMPARISON:09/19/2017 [...] Technologist: OCTAVIO VASQUEZ JR Trnscrd Date/Time/By: 018 (0729) : By: [email or web address] Orig Print D/T: S: 09/20/2017 (6973) PAGE 1 Signed Report - XR CHEST 1 [id number] 05:55:00 FAX: Mark Anthony Parker MD [phone] [place]: St: [facility] FAX: Ilan Holt MD Name: MOJGAN CUMMINGS [facility] : 1950 Age/S: 67/F [address] [facility] Unit #: [id number] Loc: [place] [address] Phys: Mark Anthony Kerns MD Acct: [id number] Dis Date: Status: UNK PHONE #: [phone] Exam Date: 09/20/2017522 FAX #: [phone] Reason: REsp Failure EXAMS: CPT CODE: [id number] XR CHEST 1 V 81635 HISTORY: Respiratory failure Location: C3 C OMPARISON:09/19/2017 [...] Technologist: OCTAVIO VASQUEZ JR Trnscrd Date/Time/By: 018 (4122) : By: [email or web address] Orig Print D/T: S: 09/20/2017 (3192) PAGE 1 Signed Report - XR CHEST 1 [id number] 09:04:00 FAX: Ilan Holt MD [place]: St: [facility] FAX: Melinda Burns MD Name: MOJGAN CUMMINGS [facility] : 1950 Age/S: 67/F [address] Unit #: [id number] Loc: [place] [address] Phys: Melinda Burns MD Acct: [id number] Dis Date: Status: UNK PHONE #: [phone] Exam Date: 09/19/2017 0339 FAX #: [phone] Reason: sob/ acute resp failure EXAMS: CPT CODE: [id number] XR CHEST 1 V 33585 REASON FOR EXAM: sob/ acute resp failure [...] Ilan Stein; Melinda Burns MD Technologist: JERAMIE LOPEZ, RT(R) Trnscrd Date/Time/By: 09/19/2017 (5904) : By: [email or web address] Orig Print D/T: S: 09/19/2017 (906) PAGE 1 Signed Report - XR CHEST 1 [id number] 09:04:00 FAX: Ilan Holt MD [place]: St: [facility] FAX: Melinda Burns MD Name: MOJGAN CUMMINGS [facility] : 1950 Age/S: 67/F [address] [facility]: [id number] Loc: [place] [address] Phys: Melinda Burns MD Acct: [id number] Dis Date: Status: UNK PHONE #: [phone] Exam Date: 09/19/2017 0339 FAX #: [phone] Reason: sob/ acute resp failure EXAMS: CPT CODE: [id number] XR CHEST 1 V 41324 REASON FOR EXAM: sob/ acute resp failure EXAM ORDER DATE: 09/19/2017 5:00 AM Ordering M.Uriah.: Melinda Burns MD PROCEDURE: - XR CHEST [...] Ilan Stein; Melinda Burns MD Technologist: JERAMIE LOPEZ, RT(R) Trnscrd Date/Time/By: 09/19/2017 (0904) : By: HarryVTL Orig Print D/T: S: 09/19/2017 (906) PAGE 1 Signed Report - XR CHEST 1 [id number] 08:18:00 FAX: Ilan Holt MD [place]: B St: UNK Name: MOJGAN SAUCEDO [facility] : [birth year] Age/S: 67/F [address] [facility] Unit #: [id number] Loc: [place] [address] Phys: Ilan Stein MD Acct: [id number] Dis Date: Status: UNK PHONE #: [phone] Exam Date: 09/18/2017529 FAX #: [phone] Reason: PNA/CHF EXAMS: CPT CODE: [id number] XR CHEST 1 V 99438 CLINICAL HISTORY: Pneumonia, CHF TECHNIQUE: AP chest [...] Zendejas Trnscrd Date/Time/By: 09/18/2017 (0818) : By: Tobias 1 Orig Print D/T: S: 09/18/2017 (21) PAGE 1 Signed Report - XR CHEST 1 V 2017-09-18 08:18:00 FAX: Ilan Holt MD [place]: St: UNK Name: MOJGAN SAUCEDO [facility] : [birth year] Age/S: 67/F [address] Unit #: [id number] Loc: [facility] [place] [address] Phys: Ilan Stein MD Acct: [id number] Dis Date: Status: UNK PHONE #: [phone] Exam Date: 09/18/2017529 FAX #: [phone] Reason: PNA/CHF EXAMS: CPT CODE: [id number] XR CHEST 1 V 44443 CLINICAL HISTORY: Pneumonia, CHF TECHNIQUE: AP chest [...] V 2017-09-17 17:47:00 FAX: Ilan Holt MD [place]: St: [facility] FAX: Melinda Burns MD Name: MOJGAN CUMMINGS [facility] : 1950 Age/S: 67/F [address] Unit #: [id number] Loc: [place] [address] Phys: Melinda Burns MD Acct: [id number] Dis Date: Status: UNK PHONE #: [phone] Exam Date: 09/17/20171735 FAX #: [phone] Reason: CENTRAL LINE PLACEMENT EXAMS: CPT CODE: [id number] XR CHEST 1 V 78774 CLINICAL HISTORY: Pneumonia; CENTRAL LINE PLACEMENT TECHNIQUE: AP chest x- ray COMPARISON: 09/07/17 IMPRESSION: Interval placement of right IJ central venous catheter with distal tip in the proximal SVC. Interval placement of ET tube 1.5 cm above the marlyn. Interval placement of NG tube which extends below the diaphragm. No pneumothorax or other significant change compared to the previous study. at 4285 Reported and signed by: Lenka Farrar D.O. CC: Ilan Stein; Melinda Burns MD Technologist: Misty ALEXANDRA(R) Trnmird Date/Time/By: 09/17/2017 (081) : By: [email or web address] Orig Print D/T: S: 09/17/2017 (4176) PAGE 1 Signed Report - XR CHEST 1 [id number] 17:47:00 FAX: Ilan Holt MD [place]: St: [facility] FAX: Melinda Burns MD Name: MOJGAN CUMMINGS [facility] : 1950 Age/S: 67/F [address] Unit #: [id number] Loc: [place] [address] Phys: Melinda Burns MD Acct: [id number] Dis Date: Status: UNK PHONE #: [phone] Exam Date: 09/17/20171735 FAX #: [phone] Reason: CENTRAL LINE PLACEMENT EXAMS: CPT CODE: [id number] XR CHEST 1 V 38764 CLINICAL HISTORY: Pneumonia; CENTRAL LINE PLACEMENT TECHNIQUE: [...] change compared to the previous study. at 1743 Reported and signed by: Lenka Farrar D.O. CC: Ilan Stein; Melinda Burns MD Technologist: Misty Pena RT(R) Trnscrd Date/Time/By: 09/17/2017 (4128) : By: [email or web address] Orig Print D/T : S: 09/17/2017 (1939) PAGE 1 Sig julian Report - CT ABD PELVIS [id number] 17:30:00 Name: MOJGAN CUMMINGS [facility] : 1950 Age/S: 67 / F [address] [facility] Unit #: [id number] [place] [address] Phys: Shabbir Puentes MD Acct: [id number] Dis Date: Status: UNK PHONE #: [phone] Exam Date: 09/15/2017 1703 FAX #: [phone] Reason: ABDOM PAIN, DIARRHEA EXAMS: CPT CODE: [id number] CT ABD PELVIS W/CONT 27167 HISTORY: Abdominal pain and diarrhea. COMPARISON: CT [...] 1 Signed Report (CONTINUED) Name: MOJGAN CUMMINGS [facility] : 1950 Age/S: 67 / F [address] [facility] Unit #: [id number] Loc: [place] [address] Phys: Shabbir Puentes MD Acct: [id number] Dis Date: Status: UNK PHONE #: [phone] Exam Date: 09/15/2017 1703 FAX #: [phone] Reason: ABDOM P AIN, DIARRHEA EXAMS: CPT CODE: [id number] CT ABD PELVIS W/CONT 02605 <Continued> Unremarkable subcutaneous tissues limited due to [...] Grissom M.D. CC: Shabbir Puentes MD Technologist:MISTY OLIVO, RT(R) CT CTDI: DLP: Trnscb Date/Time: 09/15/2017 (9704) [email or web address] Orig Print D/T: S: 09/15/2017 (2399) PAGE 2 Signed Report - CT ABD PELVIS W/[id number] 17:30:00 Name: MOJGAN CUMMINGS [facility] : 1950 Age/S: 67 / F [address] [facility] Unit #: [id number] Loc: [place] [address] Phys: Jayy Puentes MD Acct: [id number] Di s Date: Status: UNK PHONE #: Exam Date: 09/15/2017 170 FAX #: Reason: ABDOM PAIN, DIARRHEA EXAMS: CPT CODE: [id number] CT ABD PELVIS W/CONT 76952 HISTORY: Abdominal pain a nd diarrhea. COMPARISON: [...] 1 Signed Report (CONTINUED) Name: ROBERT CUMMINGS [facility] : 1950 Age/S: 67 / F [address] [facility] Unit #: [id number] Loc: [place] [address] Phys: Shabbir Puentes MD Acct: [id number] Dis Date: St atus: UNK PHONE #: [phone] Exam Donavon e: 09/15/2017 1703 FAX #: [phone] Reason: ABDOM P AIN, DIARRHEA EXAMS: CPT CODE: [id number] CT ABD PELVIS W/CONT 26065 <Continued> Unremarkable subcutaneous tissues limited due to [...] Grissom M.D. CC: Shabbir Puentes MD Technologist:MISTY OLIVO, RT(R) CT CTDI: DLP: Trnscb Date/Time: 09/15/2017 (173) t.[email or web address] Orig Print D/T: S: 09/15/2017 (1739) PAGE 2 Signed Report - XR CHEST 1 [id number] 14:10:00 FAX: Shabbir Puentes MD [place]: St: UNK Name: MOJGAN SAUCEDO [facility] : [birth year] Age/S: 67/F [address] Unit #: [id number] Loc: [place] [address] Phys: Shabbir Puentes MD Acct: [id number] Dis Date: Status: UNK PHONE #: [phone] Exam Date: 09/15/2017 1404 FAX #: [phone] Reason: Altered Mental Status EXAMS: CPT CODE: [id number] XR CHEST 1 V 64679 HISTORY: Confusion. COMPARISON: August 23, 2016. Patchy bilateral interstitial infilt rates. Dependent changes. No effusion or congestion. Cardiomegaly. IMPRESSION: Patchy bilateral interstitial infiltra melina. at 141 0 Reported and signed by: Clem Grissom M.D. CC: Shabbir Puentes MD Te chnologist: JEANNE HANKS RT(R); YAMILE TEMPLETON RT(R) [facility] Date/ Time/By: 09/15/2017 (1410) : By: [email or web address] Orig Print D/T: S: 09/15/20 17 (7266) PAGE 1 Signed Report - XR CHEST 1 [id number] 14:10:00 FAX: Shabbir Puentes MD [place]: [address]: [place] Name: MOJGAN SAUCEDO [facility] : [birth year] Age/S: 67/F [address] Unit #: [id number] Loc: [place] [address] Phys: Shabbir Puentes MD Acct: [id number] Dis Date: Status: UNK PHONE #: [phone] Exam Date: 09/15/2017 1404 FAX #: [phone] Reason: Altered Mental Status EXAMS: CPT CODE: [id number] XR CHEST 1 V 76693 HISTORY: Confusion. COMPARISON: August 23, 2016. Patchy bilateral interstitial infilt rates. Dependent changes. No effusion or congestion. Cardiomegaly. IMPRESSION: Patchy bilateral interstitial infiltra melina. at 141 0 Reported and signed by: Clem Grissom M.D. CC: Shabbir Puentes MD chnologist: JEANNE HANKS RT(R); YAMILE TEMPLETON RT(R) Trnscrd Date/ Time/By: 09/15/2017 (1410) : By: [email or web address] Orig Print D/T: S: 09/15/20 17 (5207) PAGE 1 Signed Report - [facility] [id number] 15:21:00 Name: MOJGAN CUMMINGS [facility] : 1950 Age/S: 66 / F [address] [facility] Unit #: [id number] Loc: [place] [address] Phys: William Hein MD Acct: [id number] Di s Date: Status: UNK PHONE #: [phone] Exam Date: 08/23/2016 1406 FAX #: [phone] Reason: EXAMS: CPT CODE: [id number] [facility] ACCESS 42251 Fluoro Time: 0 DAP (Gy m2): 0 Air Kerma (mGy): 0 REASON FOR EXAM: Thrombocytopenia Attending MLatrell: Olvin Hein MD EXAM ORDER DATE: 08/23/2016 1:55 PM PROCEDURE: Ultrasound Guided Peripherally Inserted Central Catheter Placement CPT code: 42504, 29658 FINDINGS: After informed consent was obtained, the [...] MD; Oswald Ho DO Technologist: SARITHA PATINO Trnmib Date/Time: 08/23/2016 (1521) [email or web address] Orig Print D/T: S: 08/23/2016 (1868) PAGE 1 Signed Report - [facility] [id number] 15:21:00 Name: MOJGAN CUMMINGS [facility] : 1950 Age/S: 66 / F [address] [facility] Unit #: [id number] Loc: [place] [address] Phys: Olvin Hein MD Acct: [id number] Dis Date: Status: UNK PHONE #: [phone] Exam Date: 08/23/2016 1406 FAX #: [phone] Reason: EXAMS: CPT CODE: [id number] [facility] ACCESS 02970 Fluoro Time: 0 DAP (Gy m2): 0 Air Kerma (mGy): 0 REASON FOR EXAM: Thrombocytopenia Attending MLatrell: Olvin Hein MD EXAM ORDER DATE: 08/23/2016 1:55 PM PROCEDURE: Ultrasound Guided Peripherally Inserted Central Catheter Placement CPT code: 02828, 75064 FINDINGS: After informed consent was obtained, the [...] MD; Oswald Ho DO Technologist: [facility] Date/Time: 08/23/2016 (9448) [email or web address].[email or web address].VTL Orig Print D/T: S: 08/23/2016 (9716) PAGE 1 Signed Report - XR CHEST 1 [id number] 14:41:00 FAX: Olvin Hein MD [phone] [place]: St: [facility] FAX: Oswald Howard DO [phone] Name: MOJGAN CUMMINGS [facility] : 1950 Age/S: 66/F [address] [facility] Unit #: [id number] Loc: [place] [address] Phys: Brayan Toro MD Acct: [id number] Dis Date: Status: UNK PHONE #: [phone] Exam Date: 08/23/2016 1415 FAX #: [phone] Reason: POST LINE PLACEMENT EXAMS: CPT CODE: [id number] XR CHEST 1 V 96831 HISTORY: Post line placement. COMPARISON: August 11, [...] RT(R); Maricruz Vergara RT(R) Trnscrd Date/Time/By: 6 (0552) : By: [email or web address] Orig Print D/T: S: 08/23/2016 (1990) PAGE 1 Signed Report - XR CHEST 1 [id number] 14:41:00 FAX: Olvin Hein MD [phone] [place]: St: [facility] FAX: Oswald Howard DO [phone] Name: ZOILAMOJGAN MOLINA [facility] : 1950 Age/S: 66/F [address] [facility] Unit #: [id number] Loc: [place] [address] Phys: Brayan Toro MD Acct: [id number] Dis Date: Status: UNK PHONE #: [phone] Exam Date: 08/23/2016 1415 FAX #: [phone] Reason: POST LINE PLACEMENT EXAMS: CPT CODE: [id number] XR CHEST 1 V 45994 HISTORY: Post line placement. COMPARISON: August 11, [...] Technologist: ABHIJEET LOPEZ RT(R); Maricruz Vergara RT(R) [facility] Date/Time/By: 6 (8711) : By: [email or web address] Orig Print D/T: S: 08/23/2016 (6519) PAGE 1 Signed Report - [facility] [id number] 17:53:00 Name: MOJGAN CUMMINGS [facility] : 1950 Age/S: 66 / F [address] [facility] Unit #: [id number] Loc: [place] [address] Phys: Olvin Hein MD Acct: [id number] Dis Date: Status: UNK PHONE #: [phone] Exam Date: 08/11/2016 1615 FAX #: [phone] Reason: EXAMS: CPT CODE: [id number] [facility] ACCESS 06347 Fluoro Time: 0 DAP (Gy m2): 0 Air Kerma (mGy): 0 REASON FOR EXAM: Acute renal failure EXAM ORDER DATE: 08/11/2016 4:00 PM Attending Crispin: Olvin Hein MD PROCEDURE: Ultrasound and fluoroscopic guided temporary hemodialysis catheter Placement CPT code: 97816, 67520, 10087 FINDINGS: After informed consent was obtained, the [...] hemodialysis catheter is ready for use. at 175 Reported and signed by : Brayan Toro M.D. CC: Olvin Hein MD; Oswald Ho DO Technologist: Mariya Gupta RT(R) Trnscb Date/Time: 08/12/2016 (1752) HarryVTL Orig Print D/T: S: 08/12/2016 (5672) PAGE 1 Signed Report - [facility] [id number] 17:53:00 Name: MOJGAN CUMMINGS [facility] : 1950 Age/S: 66 / F [address] Unit #: [id number] Loc: [place] [address] Phys: Olvin Hein MD Acct: [id number] Dis Date: Status: UNK PHONE #: [phone] Exam Date: 08/11/2016 1615 FAX #: [phone] Reason: EXAMS: CPT CODE: [id number] [facility] ACCESS 33641 Fluoro Time: 0 DAP (Gy m2): 0 Air Kerma (mGy): 0 REASON FOR EXAM: Acute renal failure EXAM ORDER DATE: 08/11/2016 4:00 PM Attending Crispin: Olvin Hein MD PROCEDURE: Ultrasound and fluoroscopic guided temporary hemodialysis catheter Placement CPT code: 75690, 76298, 00925 FINDINGS: After informed consent was obtained, the [...] Technologist: Mariya Gupta RT(R) Trnscb Date/Time: 08/12/2016 (311) GordoL Orig Print D/T: S: 08/12/2016 (5092) PAGE 1 Signed Report - XR CHEST 1 [id number] 16:43:00 FAX: Olvin Hein MD [phone] [place]: St: [facility] FAX: Y Oswald Ho DO [phone] Name: ZOILAMOJGAN MOLINA [facility] : 1950 Age/S: 66/F [address] [facility] Unit #: [id number] Loc: [place] [address] Phys: Brayan Toro MD Acct: [id number] Dis Date: Status: UNK PHONE #: [phone] Exam Date: 08/11/2016 1623 FAX #: [phone] Reason: HD CATHETER EXAMS: CPT CODE: [id number] XR CHEST 1 V 22911 EXAM: Chest x-ray, one view; INFORMATION: Renal [...] Gates M.D. CC: Olvin Dave MD; Oswald Ho DO Technologist: Lashell Mariord Date/Time/By: 08/11/2016 (1642) : By: Omar Orig Print D/T: S: 08/11/2016 (760) PAGE 1 Signed Report - XR CHEST 1 [id number] 16:43:00 FAX: Olvin Hein MD [phone] [place]: St: [facility] FAX: Y Oswald Ho DO [phone] Name: MOJGAN CUMMINGS [facility] : 1950 Age/S: 66/F [address] [facility] Unit #: [id number] Loc: [place] [address] Phys: Brayan Toro MD Acct: [id number] Dis Date: Status: UNK PHONE #: [phone] Exam Date: 08/11/2016 1623 FAX #: [phone] Reason: HD CATHETER EXAMS: CPT CODE: [id number] XR CHEST 1 V 52791 EXAM: Chest x-ray, one view; INFORMATION: Renal [...] MD; Oswald Ho DO Technologist: Lashell Monaco Trntingrd Date/Time/By: 08/11/2016 (1642) : By: Omar Orig Print D/T: S: 08/11/2016 (1305) PAGE 1 Signed Report - CT HEAD/BRAIN W/O [id number] 14:40:00 Name: MOJGAN CUMMINGS [facility] : 1950 Age/S: 66 / F [address] Unit #: [id number] Loc: [place] [address] Phys: Olvin Hein MD Acct: [id number] Dis Date: Status: UNK PHONE #: [phone] Exam Date: 08/11/2016 1427 FAX #: [phone] Reason: altered mental status EXAMS: CPT CODE: [id number] CT HEAD/BRAIN W/O CONT 50388 HISTORY: Confusion. COMPARISON: None available. CT brain [...] RT(R) CTDI: DLP: Trnscb Date/Time: 08/11/2016 (1440) [email or web address] Orig Print D/T: S: 08/11/2016 (8117) PAGE 1 Signed Report - CT HEAD/BRAIN W/O [id number] 14:40:00 Name: MOJGAN CUMMINGS [facility] : 1950 Age/S: 66 / F Amish Clark Unit #: [id number] Loc: LUIS M Kamara [address] Phys: William Hein MD Acct: [id number] Di s Date: Status: UNK PHONE #: [phone] Exam Date: 08/11/2016 1427 FAX #: [phone] Reason: altered mental status EXAMS: CPT CODE: [id number] CT HEAD/BRAIN W/O CONT 40600 HISTORY: Confusion. COMPARISON: None available. CT brain without contrast: Au tomated exposure control. Note: Motion limited study. No acute intracranial bleeds or extra-axial collections are noted. No ac [place] vascular infarction is noted. The sulci, [...] (1440) [email or web address].[email or web address] Orig Print D/T: S: 08/11/2016 (8129) PAGE 1 Signed Report - RETRO [id number] 14:22:00 Name: MOJGAN CUMMINGS [facility] : 1950 Age/S: 66 / F [address] Unit #: [id number] Loc: LUIS M Kamara [address] Phys: Olvin Hein MD Acct: [id number] Dis Date: Status: UNK PHONE #: [phone] Exam Date: 08/11/2016 1407 FAX #: [phone] Reason: renal failure EXAMS: CPT CODE: [id number] US RETRO LTD 91030 HISTORY: Renal failure. COMPARISON: CT abdomen and [...] MD; Oswald Ho DO Technologist: RICK PRICE RT(R),[facility]GA [facility] [place] Date/Time: 08/11/2016 (1421) [email or web address] Orig Print D/T: S: 08/11/2016 (142) Probe: PAGE 1 Signed Report - US RETRO [id number] 14:22:00 Name: MOJGAN CUMMINGS [facility] [place] [facility] [facility] 1950 Age/S: 66 / F [address] [facility] Unit #: [id number] Loc: [place] [address] Phys: Olvin Hein MD Acct: [id number] Dis Date: Status: UNK PHONE #: [phone] Exam Date: 08/11/2016 1407 FAX #: [phone] Reason: renal failure EXAMS: CPT CODE: [id number] US RETRO LTD 25030 HISTORY: Renal failure. COMPARISON: CT abdomen and [...] Oswald Ho DO Technologist: RICK PRICE RT(R),RDMS Trnmib Date/Time: 08/11/2016 (1421) t.SDR.TH4 Orig Print D/T: S: 08/11/2016 (863) Probe: PAGE 1 Signed Report - XR CHEST 1 [id number] 13:42:00 FAX: Olvin Hein MD [phone] [place]: St: [facility] FAX: Oswald Howard DO [phone] Name: MOJGAN CUMMINGS [facility] : 1950 Age/S: 66/F [address] [facility] Unit #: [id number] Loc: [place] [address] Phys: Olvin Hein MD Acct: [id number] Dis Date: Status: UNK PHONE #: [phone] Exam Date: 08/11/2016 1335 FAX #: [phone] Reason: rule out pneumonia EXAMS: CPT CODE: [id number] XR CHEST 1 V 36088 HISTORY: Pneumonia and abdominal pain with vomiting and diarrhea. COMPARISON: None available. Patchy right basal interstitial infiltrates. No effusion or congestion. Cardiomegaly. IMPRESSION: Patchy bibasal interstitial infiltrates. at 1342 Reported and signed by: Clem Grissom M.D. CC: Olvin Hein MD; Oswald Ho DO Technologist: Shruthi Tadeo RT(R) Trnscrd Date/Time/By: 08/11/2016 (9292) : By: [email or web address] Orig Print D/T: S: 08/11/2016 (9954) PAGE 1 Signed Report - XR CHEST 1 [id number] 13:42:00 FAX: Olvin Hein MD [phone] [place]: St: [facility] FAX: Y Oswald Ho DO [phone] Name: MOJGAN CUMMINGS [facility] : 1950 Age/S: 66/F [address] [facility] Unit #: [id number] Loc: [place] [address] Phys: Olvin Hein MD Acct: [id number] Dis Date: Status: UNK PHONE #: [phone] Exam Date: 08/11/2016 1335 FAX #: [phone] Reason: rule out pneumonia EXAMS: CPT CODE: [id number] XR CHEST 1 V 55851 HISTORY: Pneumonia and abdominal pain with vomiting and diarrhea. COMPARISON: None available. Patchy right basal int erstitial infiltrates. No effusion or congestion. Cardiomegaly. IMPRESSION: Patchy bibasal interstitial infiltrates. at 1342 Reported and signed by: Clem Grissom M.D. CC: Olvin Hein MD; Oswald Ho DO Technologist: Shruthi Tadeo RT(R) Trnscrd Date/Time/By: 08/11/2016 (1342) : By: [email or web address] Orig Print D/T: S: 08/11/2016 (9324) PAGE 1 Signed Report - US ABDOMEN [id number] 07:20:00 Name: MOJGAN CUMMINGS [facility] : 1950 Age/S: 66 / F [address] Unit #: [id number] Loc: [place] [address] Phys: Olvin Hein MD Acct: [id number] Dis Date: Status: UNK PHONE #: [phone] Exam Date: 08/10/2016516 FAX #: [phone] Reason: rule out cholecystitis EXAMS: CPT CODE: [id number] US ABDOMEN LTD 85092 HISTORY: Cholecystitis; abdominal pain TECHNIQUE: Static grayscale [...] Oswald Ho DO Technologist: Evette Gregory RDMS Trnscb Date/Time: 08/10/2016 (719) [email or web address] Orig Print D/T: S: 08/10/2016 (2364) Probe: PAGE 1 Signed Report - US ABDOMEN [id number] 07:20:00 Name: MOJGAN CUMMINGS [facility] : 1950 Age/S: 66 / F [address] Unit #: [id number] Loc: [place] [address] Phys: Olivn Hein MD Acct: [id number] Dis Date: Status: UNK PHONE #: [phone] Exam Date: 08/10/2016516 FAX #: [phone] Reason: rule out cholecystitis EXAMS: CPT CODE: [id number] US ABDOMEN LTD 43643 HISTORY: Cholecystitis; abdominal pain TECHNIQUE: Static grayscale [...] Oswald Ho DO Technologist: Evette Gregory RDMS Trnscb Date/Time: 08/10/2016 (719) [email or web address] Orig Print D/T: S: 08/10/2016 (0735) Probe: PAGE 1 Signed Report - CT ABD PELVIS W/O [id number] 17:31:00 Name: MOJGAN CUMMINGS [facility] : 1950 Age/S: 66 / F [address] Unit #: [id number] Loc: [place] [address] Phys: Carlos Griffin MD Acct: [id number] Di s Date: Status: UNK PHONE #: Exam Date: 08/09/2016 1722 FAX #: Reason: abd pain diarrhea renal failure EXAMS: CPT CODE: [id number] CT ABD PELVIS W/O CONT 38713 EXAM: CT of the abdomen a nd [...] MD Technologist:Dmitri Cortes RT(R),(MR),(CT) CTDI: DLP: Trnscb Uriah ate/Time: 08/09/2016 (1731) Omar Orig Print D/T: S: 08/09/2016 (3248) PAGE 1 Signed Report - CT ABD PELVIS W/O [id number] 17:31:00 Name: MOJGAN CUMMINGS [facility] : 1950 Age/S: 66 / F [address] Unit #: [id number] Loc: [place] [address] Phys: Spencer Griffin MD Acct: [id number] Dis Date: Status: UNK PHONE #: [phone] Exam Date: 08/09/2016 1722 FAX #: [phone] Reason: abd pain diarrhea renal failure EXAMS: CPT CODE: [id number] CT ABD PELVIS W/O CONT 03432 EXAM: CT of the abdomen and pelvis [...] CTDI: DLP: Trnscb D ate/Time: 08/09/2016 (1731) t.JOSELYNR.GRW Orig Print D/T: S: 08/09/2016 (1580) PAGE 1 Signed Report [id number] 17:55:84419Xvndhzay HermannELECTROLYTES 2016-06-14 17:55:005.1[facility] QwkaqlpLCCGDWXKYVYP2800-56-42 17:55:0011.1 [facility] OeatjsrTRWVCMRMZKDF8323-50-03 17:55:009.2[facility] HermannELECTROLYTES 2016-06-14 17:55:0026[facility] QzloiwsFOHOILPQVWLT5854-89-77 17:55:0076[facility] OipbdnxILLERMVETMRJ0952-75-12 17:55:000.80[facility] VfndyxpHZLIHASMHFCE8459-73-13 17:55:0011[facility] KfwcvbxPGFSEZENZXQI1090-08-28 17:55:01651Zzdoshis Jet AHXUHHBRPJPW8185-45-94 17:55:58397Qzfgirmv [place]- XR KNEE 1 OR 2 V BI 2014-01-08 16:43:00 FAX: Oswald Howard DO [phone] [place]: O St: UNK Name: Calixto LOWEMOJGAN MOLINA [facility] : [birth year] Age/S: 63/F [address] [facility] Unit #: [id number] Loc: [place] [address] Phys: Oswald Ho DO Acct: [id number] Dis Date: Status: UNK PHONE #: [phone] Exam Date: 01/08/2014 1140 FAX #: [phone] Reason: 719.46 KNEE PAIN EXAMS: CPT CODE: [id number] XR KNEE 1 OR 2 [place] BI [address] TECHNIQUE: Bilateral knees 2 views each side. FINDINGS: Severe tricompartmental osteoarthritis with narrowing greatest in the medial and patellofemoral compartments bilateral ly. Bilateral mild lateral subluxation of the tibia and mild tibia vara versus genu varus. No acute traumatic or destructive bone lesion or si gnificant joint effusion. IMPRESSION: Severe osteoarthritis in b oth knees. a t 1940 Reported and signed by: Conrad Gan M.D. CC: Oswald Ho DO Technologist: RT TESSA(R) Trnscrd Date/Time/By: 01/08/2014 (1642) : By: [email or web address] Orig Print D/T: S: (223) PAGE 1 Signed Repo rt - XR KNEE 1 OR 2 V [id number] 16:43:00 FAX: Oswald Howard DO [phone] [place]: O St: [facility] Name: MOJGAN SAUCEDO [facility] : [birth year] Age/S: 63/F [address] [facility] Unit #: [id number] Loc: [place] [address] Phys: Oswald Ho DO Acct: [id number] Dis Date: Status: UNK PHONE #: [phone] Exam Date: 01/08/2014 1140 FAX #: [phone] Reason: 719.46 KNEE PAIN EXAMS: CPT CODE: [id number] XR KNEE 1 OR 2 V 50719 TECHNIQUE: Bilateral knees 2 views each side. FINDINGS: Severe tricompartmental osteoarthritis with narrowing greatest in the medial and patellofemoral compartments bilateral ly. Bilateral mild lateral subluxation of the tibia and mild tibia vara versus genu varus. No acute traumatic or destructive bone lesion or si gnificant joint effusion. IMPRESSION: Severe osteoarthritis in b oth knees. a t 028 Reported and signed by: Conrad Gan M.D. CC: Oswald Ho DO Technologist: SABRINA ZARATER) Trnscrd Date/Time/By: 01/08/2014 (1642) : By: [email or web address] Orig Print D/T: S: (7428) PAGE 1 Signed Repo rt CHEST SINGLE (PORTABLE) [place] [address] Patient Name: MOJGAN CUMMINGS MR #: [id number] : 1950 Age/Sex: 68/F Req #: [id number] Adm Physician: Ordered by: NATHANIEL SANTACRUZ DO Report #: [id number] Location: ER Room/Bed: Procedure: [id number] DX/CHEST SINGLE (PORTABLE) Exam Date: 02/10/18 Exam [...] COPY TO: NATHANIEL SANTACRUZ DO MODIFIED BA. SWALLOW [place] [address] Patient Name: MOJGAN CUMMINGS MR #: [id number] : 1950 Age/Sex: 67/F Req #: [id number] Adm Physician: ILAN STEIN MD Ordered by: Pilar Simeon NP Report #: [id number] Location: MED/SURG2 Room/Bed: 204-1 Procedure: [id number] DX/M ODIFIED BA. SWALLOW Exam Date: 01/17/18 [...] TRIPP MD 0 Transcribed By: DEN on 01/18/18 08 COPY TO: PILAR SIMEON SHOT DROPPER CHEST SINGLE (PORTABLE) [place] [address] Patient Name: MOJGAN CUMMINGS MR #: [id number] : 1950 Age/Sex: 67/F Req #: [id number] Adm Physician: ILAN MAURICIO MD Ordered by: BALBIR BARDALES MD Report #: [id number] Location: I CU Room/Bed: ICU 191-1 Procedure: [id number] DX/CHEST SINGLE (PORTABLE) Exam Date: 01/14/18 Exam [...] on 01/14/18732 COPY TO: BALBIR BARDALES MD [facility] ([place] [address] Patient Name: MOJGAN CUMMIGNS MR #: [id number] : 1950 Age/Sex: 67/F Req #: [id number] Adm Physician: ILNA STEIN MD Ordered by: KIAN ROGERS PA-C Report #: [id number] Location: ICU Room/Bed: ICU [facility] Procedure: [id number] DX/AB THAIJESUS-MarisolVIEW (KUB) Exam Date: 01/13/18 Exam Time: 192 0 [...] KIAN ROGERS PA-C CHEST XRAY LINE PLACEMENT [place] [address] Patient Name: MOJGAN CUMMINGS MR #: [id number] : 1950 Age/Sex: 67/F Req #: [id number] Adm Physician: ILAN STEIN MD Ordered by: KIAN ROGERS PA-C Report #: [id number] Location: ICU Room/Bed: ICU [facility] Procedure: [id number] DX/CH EST XRAY LINE PLACEMENT Exam Date: [...] extremity PICC line placeme nt. Signed by: Dr. Eric Lantigua D.O., M.M.M. on 01/13/2018 8:02 PM Dictated By: ERIC LANTIGUA DO 01 Transcribed By: BAMBI on 01/13/182001 COPY TO: KIAN LEE PA-C CHEST SINGLE (PORTABLE) [place] [address] Patient Name: MOJGAN CUMMINGS MR #: [id number] : 1950 Age/Sex: 67/F Req #: [id number] Adm Physician: ILAN STEIN MD Ordered by: BASIL POSADAS, AKILAH POSADAS Report #: [id number] Location: ICU Room/Bed: ICU 191- Procedure: [id number] DX /CHEST SINGLE (PORTABLE) Exam Date: 01/13/18 [...] COPY TO: Jeison GRACIA CHEST SINGLE (PORTABLE) [place] [address] Patient Name: MOJGAN CUMMINGS MR #: [id number] : 1950 Age/Sex: 67/F Req #: [id number] Adm Physician: ILAN STEIN MD Ordered by: MAURO AUGUSTIN MD Report #: [id number] Location: ICU Room/Bed: ICU 191-1 Procedure: [id number] DX/CH EST SINGLE (PORTABLE) Exam Date: 01/12/18 [...] 7:04 AM Dictated By: SHANA TIAN MD Transcribed By: BAMBI on 01/12/18 0704 DRAFTER APPRENTICE Y TO: MAURO AUGUSTIN MD CHEST SINGLE (PORTABLE) [place] [address] Patient Name: MOJGAN CUMMINGS MR #: [id number] : 1950 Age/Sex: 67/F Req #: [id number] Adm Physician: ILAN STEIN MD Ordered by: MAURO AUGUSTIN MD Report #: [id number] Location: ICU Room/Bed: ICU 191-1 Procedure: [id number] DX/CH EST SINGLE (PORTABLE) Exam Date: 01/11/18 [...] MD 07 COPY TO: MAURO AUGUSTIN MD ABDOMEN-1VIEW ([facility]) [place] [address] Patient Name: MOJGAN CUMMINGS MR #: [id number] : 1950 Age/Sex: 67/F Req #: [id number] Adm Physician: ILAN STEIN MD Ordered by: ILAN STEIN MD Report #: [id number] Location: ICU Room/Bed: ICU [facility] Procedure: [id number] DX/CARIDAD NOL[place]OVIEW (KUB) Exam Date: 01/11/18 Exam Time: 1300 [...] TO: ILAN STEIN MD CHEST SINGLE (PORTABLE) [place] [address] Patient Name: MOJGAN CUMMINGS MR #: [id number] : 1950 Age/Sex: 67/F Req #: [id number] Adm Physician: ILAN STEIN MD Ordered by: ILAN STEIN MD Report #: [id number] Location: ICU Room/Bed: ICU 191-1 Procedure: [id number] DX/CHES T SINGLE (PORTABLE) Exam Date: 01/11/18 [...] TO: ILAN STEIN MD CHEST SINGLE (PORTABLE) [place] [address] Patient Name: MOJGAN CUMMINGS MR #: [id number] : 1950 Age/Sex: 67/F Req #: [id number] Adm Physician: ILAN STEIN MD Ordered by: ILAN STEIN MD Report #: [id number] Location: ICU Room/Bed: ICU 191-1 Procedure: [id number] DX/CHES T SINGLE (PORTABLE) Exam Date: 01/11/18 Exam Time: 1 030 REPORT STATUS: Signed PROCEDURE: CHEST SINGLE (PORTABLE) TECHNI QUE: Portable AP chest INDICATION: Intubation COMPARISON: Patients [facility], DX, CHEST SINGLE (PORTABLE), 01/11/2018, 6:10. [facility], DX, CHEST SINGLE (PORTABLE), 01/06/2018, 17:50. FINDINGS: [...] TO: ILAN STEIN MD CHEST SINGLE (PORTABLE) [place] [address] Patient Name: MOJGAN CUMMINGS MR #: [id number] : 1950 Age/Sex: 67/F Req #: [id number] Adm Physician: IALN STEIN MD Ordered by: Pilar Simeon SHOT DROPPER Report #: [id number] Location: MED/SURG3 Room/Bed: 296-1 Procedure: [id number] DX/C HEST SINGLE (PORTABLE) Exam Date: 01/11/18 [...] 7:01 AM Dictated By: SHANA TIAN MD [facility] sherry Signed By: SHANA TIAN MD on 01/11/18 07 Transcribed By: YASHIRA NUGENT on 01/11/18 07 COPY TO: PILAR SIMEON NP CT CHEST W [place] [address] Patient Name: MOJGAN CUMMINGS MR #: [id number] : 05/1950 Age/Sex: 67/F Req #: [id number] Adm Physician: ILAN MAURICIO MD Ordered by: JENN MILLER MD Report #: [id number] Locat ion: [facility] Room/Bed: ERHOLD-9 Procedure: [id number] C T/CT CHEST W Exam Date: 01/06/18 [...] TO: ELIJAH MILLER MD CHEST SINGLE (PORTABLE) [place] [address] Patient Name: MOJGAN CUMMINGS MR #: [id number] : 1950 Age/Sex: 67/F Req #: [id number] Adm Physician: Ordered by: JENN MILLER MD Report #: [id number] Location: ER Room/Bed: Procedure: [id number] DX/CHEST SINGLE (PORTABLE) E xam Date: 01/06/18 [...] joint. IMPRESSION: 1. No acute cardiopulmonary abnormalitie sFaye Turner M.D. Dictated by: Crispin Dorman 01/06/2018 at 18:41 Electronically approved by: Og Turner M.D. on 01/06/2018 at 18:41 Dictated By: OG TURNER MD Electro nically Signed By: OG TURNER MD on 01/06/181840 Transcribed By: DEN on 01/06/181840 COPY TO: JENN IMLLER MD
--- NOTE | 2020-05-27 00:39 | Diagnostic Imaging Report ---
EXAMINATION: CHEST SINGLE (PORTABLE) INDICATION: Short of breath COMPARISON: Chest x-ray 05/16/2020 FINDINGS: TUBES and LINES: Tracheostomy tube tip in the mid intrathoracic trachea. LUNGS: Normal lung volumes. Lungs are clear. No consolidations. PLEURA: No pleural effusion or pneumothorax. HEART AND MEDIASTINUM: Cardiac size is mildly enlarged. BONES AND SOFT TISSUES: No acute osseous lesion. Soft tissues are unremarkable. Degenerative changes in the spine and shoulders. UPPER ABDOMEN: No free air under the diaphragm. IMPRESSION: No acute thoracic radiographic abnormality. Signed by: Tomy Espinoza DO on 05/27/2020 12:36 AM
--- NOTE | 2020-05-27 01:16 | NUR ---
Spoke to patient regarding the plan. Patient state she is ok with manager social seeing her in the morning for safe placement.
--- NOTE | 2020-05-27 01:21 | NUR ---
Pt lying comfortably on bed, more relaxed than when she first arrived in ED. VSS. No further complaints made at this time.
--- NOTE | 2020-05-27 02:57 | NUR ---
Upon entry to room, trach collar removed and patient was stating she could not breath. O2 sats remained at 98%. RT called to replace trach collar. Patient was also suctioned and tolerated well. Patient very anxious.
--- NOTE | 2020-05-27 02:58 | NUR ---
New brief applied and linens changed at this time. Patient remains anxious. No respiratory distress noted.
--- NOTE | 2020-05-27 03:28 | NUR ---
Patient very tearful at this time and stating she does not know where to go. Spoke to patient in detail regarding transition social worker consult. Patient states she would like to go live with her sister. Addendum: 05/27/20 at 0329 by PRERNA Patient agrees to see social work associate in the morning.
--- NOTE | 2020-05-27 05:02 | NUR ---
Patient resting with no distress noted. RR even and unlabored. VS stable at this time.
--- NOTE | 2020-05-27 07:10 | NUR ---
[facility] on way. Called social services coordinator Manisha Mcelroy, [employer] Justice, per conversation, pt known well and is ok to go home. er md and rn spoke with pt at great length and states she feels safe at home and wants to go home. ems called for transport. pt is aaox4.
--- NOTE | 2020-05-27 08:02 | NUR ---
both spouse and daughter called and updated.
--- NOTE | 2020-05-27 08:03 | NUR ---
GIVEN 5 MINS ETA.
--- NOTE | 2020-05-27 08:03 | NUR ---
[facility] CALLED FOR ETA UPDATE....
--- NOTE | 2020-05-27 08:12 | NUR ---
WAS CALLED ABOUT THIS PATIENT, PT WANTS TO RETURN HOME, PT HAS A RIGHT TO CHOICE IF SHE WANTS TO RETURN HOME THEN SHE CAN RETURN HOME. SHE EXPRESSED TO NURSE AND MD HER WISHES. NO SOC SERVICE INTERVENTION NEEDED.
--- NOTE | 2020-05-27 08:41 | NUR ---
ems here. report to ems.
== END 2020-05-27 08:41 | disposition home or self-care (01) ==
LOC: ER 23:40
DX: R06.02 Shortness of breath (principal); F41.9 Anxiety disorder, unspecified; I10 Essential (primary) hypertension; E11.9 Type 2 diabetes mellitus without complications; E03.9 Hypothyroidism, unspecified; D64.9 Anemia, unspecified
CPT/HCPCS: 71045; 99284; J2060

== ENCOUNTER 2020-09-09 08:33 | Emergency (ER) | payer MEDICARE, OTHER ==
[~2020-09-09] VITALS: Ht 172.7 cm; Wt 62.1 kg
[2020-09-09 09:26] LABS: BASOPHILS % 0.5 % (0.0-1.0); EOSINOPHILS # (AUTO) 0.2 (0.0-0.4); EOSINOPHILS % 4.1 % (0.0-6.0); HEMATOCRIT 36.2 % (34.2-44.1); HEMOGLOBIN 11.6 g/dL (12.0-16.0); LYMPHOCYTES # (AUTO) 1.2 (1.0-3.2); LYMPHOCYTES % 20.4 % (18.0-39.1); MEAN CORPUSCULAR HEMOGLOBIN 28.5 pg (28-32); MEAN CORPUSCULAR VOLUME 88.9 fL (81-99); MONOCYTES # (AUTO) 0.4 (0.2-0.8); MONOCYTES % 7.4 % (4.4-11.3); NEUTROPHILS % 67.1 % (38.7-80.0); PLATELET COUNT 51 x10e3/uL (140-360); RED BLOOD COUNT 4.07 x10e6/uL (3.6-5.1); RED CELL DISTRIBUTION WIDTH 12.5 % (11.7-14.4)
[2020-09-09 10:16] LABS: ALANINE AMINOTRANSFERASE 15 IU/L (0-55); ALBUMIN 3.9 g/dL (3.5-5.0); ALBUMIN/GLOBULIN RATIO 1.4 (0.8-2.0); ALKALINE PHOSPHATASE 101 IU/L (40-150); ANION GAP 13.8 mmol/L (8-16); BLOOD UREA NITROGEN 22 mg/dL (7-26); BUN/CREATININE RATIO 28 (6-25); CALCIUM 9.4 mg/dL (8.4-10.2); CARBON DIOXIDE 23 mmol/L (22-29); CHLORIDE 106 mmol/L (98-107); EST GLOMERULAR FILTRATION RATE > 60 ML/MIN (60-); GLUCOSE 81 mg/dL (74-118); POTASSIUM 3.8 mmol/L (3.5-5.1); SODIUM 139 mmol/L (136-145)
[2020-09-09 10:26] LABS: HIV 1&2 AB SCREEN NON-REACTIVE (NONREACTIVE)
== END 2020-09-09 10:37 | disposition home or self-care (01) ==
LOC: ER 08:40
DX: F41.9 Anxiety disorder, unspecified (principal); I10 Essential (primary) hypertension; E11.9 Type 2 diabetes mellitus without complications; K21.9 Gastro-esophageal reflux disease without esophagitis; Z93.0 Tracheostomy status
CPT/HCPCS: 36415; 80053; 85025; 86704; 86706; 87340; 87390; 87522; 99284; G0433; G0435

== ENCOUNTER 2022-08-14 01:43 | Emergency (ER) | payer MEDICARE ==
[~2022-08-14] VITALS: Ht 172.7 cm; Wt 96.2 kg
== END 2022-08-14 02:38 | disposition home or self-care (01) ==
LOC: ER 01:48
DX: Z43.0 Encounter for attention to tracheostomy (principal); I10 Essential (primary) hypertension; E11.9 Type 2 diabetes mellitus without complications; E03.9 Hypothyroidism, unspecified; D64.9 Anemia, unspecified; K21.9 Gastro-esophageal reflux disease without esophagitis; F41.9 Anxiety disorder, unspecified; F32.A Depression, unspecified
CPT/HCPCS: 94799; 99283

== ENCOUNTER → 2023-01-21 | Outpatient (CLI) | payer MEDICARE ==
[~2023-01-21] MED LIST changes: +BUSPIRONE HCL5 MG PO; +CEFDINIR300 MG PO; +FUROSEMIDE20 MG PO; +IRON PO; +MULTI-VITAMIN1 EACH PO; +PANTOPRAZOLE SO40 MG PO; +PREDNISONE5 MG PO; +SYNTHROID125 MCG PO; +TRAZODONE HCL50 MG PO; +VITAMIN D250 MCG PO
== END ==
LOC: DX 10:34
PROVIDERS: ATTEND Family Medicine
DX: R13.10 Dysphagia, unspecified (principal)
CPT/HCPCS: 74230